=== PATIENT | female | born 1980 | race American Indian/Alaskan Native ===

== ENCOUNTER 2017-06-02 03:57 | Emergency (ER) | payer BC, OTHER ==
[~2017-06-02] VITALS: Ht 165.1 cm; Wt 82.0 kg
[~2017-06-02 03:57] MED LIST: CIPROFLOXACIN500 MG PO; GENTAMICIN SULFA5 ML OD; METRONIDAZOLE500 MG PO; NORCO 5-325 TA1 EACH PO; OMEPRAZOLE20 MG PO; PROMETHAZINE HC25 M1 PO
[2017-06-02] MEDS ORDERED: AMLODIPINE BES2.5 MG PO (05:11)
[2017-06-02] MEDS ORDERED: OXYCODONE-ACET1 EAC1 PO (05:12)
[2017-06-02] MEDS ORDERED: TORSEMIDE20 MG PO (05:36)
[2017-06-02] MEDS ORDERED: ONDANSETRON HCL8 MG (21:50)
[2017-06-02] MEDS ORDERED: XANAX0.5 MG (21:52)
[2017-06-02] MEDS ORDERED: ATIVAN1 MG (21:52)
== END 2017-06-02 08:30 | disposition home or self-care (01) ==
LOC: ED 03:57
DX: T80.0XXA Air embolism following infusion, transfusion and therapeutic injection, initial encounter (principal); F41.0 Panic disorder [episodic paroxysmal anxiety]; I10 Essential (primary) hypertension; Z79.899 Other long term (current) drug therapy
CPT/HCPCS: 71010; 80053; 85025; 96361; 96374; 96375; 99283; J1170; J2060; J2405; J7030

== ENCOUNTER 2017-06-02 21:40 | Emergency (ER) | payer BC, OTHER ==
[~2017-06-02] VITALS: Ht 165.1 cm; Wt 82.2 kg
[~2017-06-02 21:40] MED LIST changes: +AMLODIPINE BES2.5 MG PO; +OXYCODONE-ACET1 EAC1 PO; +TORSEMIDE20 MG PO
[2017-06-02] MEDS ORDERED: ONDANSETRON HCL8 MG (21:50)
[2017-06-02] MEDS ORDERED: XANAX0.5 MG (21:52)
[2017-06-02] MEDS ORDERED: ATIVAN1 MG (21:52)
== END 2017-06-03 00:22 | disposition home or self-care (01) ==
LOC: ED 21:40
DX: F41.0 Panic disorder [episodic paroxysmal anxiety] (principal); Z99.2 Dependence on renal dialysis; I10 Essential (primary) hypertension; Z79.899 Other long term (current) drug therapy
CPT/HCPCS: 96361; 96374; 96375; 99282; J2060; J2405; J7030

== ENCOUNTER 2018-03-11 13:37 | Emergency (ER) | payer OTHER ==
[~2018-03-11] VITALS: Ht 165.1 cm; Wt 82.2 kg
--- OUTSIDE RECORDS SUMMARY | ~2018-03-11 | XMS | Encounter Summary ---
Demographics + + + | Address | [address] | | | [place] [address] | + + + | Home Phone | | + + + | Preferred Language | Unknown | + + + | Marital Status | | + + + | Congregational Affiliation | Unknown | + + + | Race | Unknown | + + + | Ethnic Group | Unknown | + + + Author + + + | Author | [facility] | + + + | Organization | [facility] [employer] [facility] | + + + | Address | Unknown | + + + | Phone | Unavailable | + + + Support + + +---------+ + | Name | Relationship | Address | Phone | + + +---------+ + | Lydia Palm | ECON | Unknown | | + + +---------+ + | Lyubov Smalls | ECON | Unknown | | + + +---------+ + | Jose C Oconnor | ECON | Unknown | | + + +---------+ + Care Team Providers + +------+ + | Care Cutting And Boning Supervisor Name | Role | Phone | + +------+ + | Aura Saldaña | PCP | | + +------+ + Reason for Visit +--------+ + | Reason | Comments | +--------+ + | Other | [facility] order form- signed order by provider- 4/27/18 - | | | | +--------+ + Encounter Details +--------+ + + + + | Date | Type | Department | Care Team | Description | +--------+ + + + + | 03/06/ | Documentati | [facility] | [facility] | [facility] | | 2018 | on Only | [address] | [facility] [address] | depot order form- | | | | [address] | | signed order by | | | | [place] [id number] | | provider- 03/06/18 - | | | | [phone] | | ) | +--------+ + + + + Social [...] + + + as of this encounter Progress Notes Shayy Stewart CMA - 03/06/2018 3:33 PM PDTFaxed signed order by provider to [facility] depot order form. Fax confirmation received. .in this encounter Plan of Treatment Not on fileas of this encounter Visit Diagnoses Not on filein this encounter"
--- OUTSIDE RECORDS SUMMARY | ~2018-03-11 | XMS | Encounter Summary ---
Demographics + + + | Address | [address] | | | [place] [address] | + + + | Home Phone | | + + + | Preferred Language | Unknown | + + + | Marital Status | | + + + | Quaker Affiliation | Unknown | + + + | Race | Unknown | + + + | Ethnic Group | Unknown | + + + Author + + + | Author | [facility] | + + + | Organization | [facility] | + + + | Address [...] Team Providers + +------+ + | Care Dental Aide Name | Role | Phone | + +------+ + | Aura Saldaña | PCP | | + +------+ + Reason for Visit + + + | Reason | Comments | + + + | Abdominal Pain | pt reports she has had similar pain in the past "when my | | | peritoneum is infected" | + + + | Emesis | | + + + Auth/Cert +--------+--------+ + + + + | Status | Reason | Specialty | Diagnoses / | Referred By | Referred To | | | | | Procedures | Contact | Contact | +--------+--------+ + + + + | | | | | | | +--------+--------+ + + + + Encounter Details +--------+ + + + + | Date | Type | Department | Care Team | Description | +--------+ + + + + | 03/04/ | Hospital | [facility] | Irvin Mujica MD | Non-intractable | | 2018 - | Encounter | [facility] | [address] | vomiting with | | | | Surgical [address] | [place], [place] | nausea, unspecified | | 03/09/ | | [address], [place] | [address] | vomiting type | | 2018 | | [address] | [phone] | (Primary Dx); | | | | | | Generalized | | | | | Juan-Anthony, | abdominal pain; | | | | | MD Jose [address] | End-stage renal | | | | | [address] | disease on | | | | | [place] [address] | peritoneal dialysis | | | | | [phone] | ([facility]) | | | | | | | | | | | Kemal Maloney | | | | | | MD Sriram [address] | | | | | | [address] [place], [place] | | | | | | [address] | | | | | | | | | | | | Cesar Gatica MD | | | | | | [address] | | | | | | [address] | | | | | | [place] [address] | | | | | | [phone] | | | | | | | [...] + + + | Blood Pressure | 113/78 | 03/09/2018 11:58 AM PDT | + + + + | Pulse | 80 | 03/09/2018 3:27 PM PDT | + + + + | Temperature | 36.7 C (98.1 F) | 03/09/2018 3:27 PM PDT | + + + + | Respiratory Rate | 18 | 03/09/2018 3:27 PM PDT | + + + + | Oxygen Saturation | 97% | 03/09/2018 3:27 PM PDT | + + + + | Inhaled Oxygen | - | - | | Concentration | | | + + + + | Weight | 83.9 kg (184 lb 15.5 | 03/09/2018 7:20 AM PDT | | | oz) | | + + + + | Height | 157.5 cm (5' 2") | 03/05/2018 1:45 AM PDT | + + + + | Body Mass Index | 33.83 | 03/09/2018 7:20 AM PDT | + + + + in this encounter Discharge Summaries Lukas Lynn MD-R2 - 03/09/2018 6:55 AM PDTFormatting of this note may be different from the original. Service: Hospitalist Discharge Summary Pt: Ramona Oconnor AGE/SEX: 38 y.o. female ROOM: 406/406-1 PCP: [facility] : 1980 Date of Admission: 03/04/2018 Date of Discharge: Discharge Provider: ODALIS ColónR2/Dr. Kemal Maloney Treatment Team: Consulting Physician: Santos Rey MD Consulting Physician: Linden Alonzo MD Admitting Provider: Jose Doran MD Discharge Diagnoses: Principal Problem: Abdominal pain Active Problems: Gastroesophageal reflux disease without esophagitis ESRD on peritoneal dialysis Nausea with vomiting Anemia in ESRD (end-stage renal disease) (HCC) Resolved Problems: * No resolved hospital problems. * BRIEF HISTORY OF PRESENTATION and HOSPITAL COURSE: This is a 2-year-old female with past medical history of end-stage renal disease on periton eal dialysis due to glomerulonephritis and gastroesophageal reflux disease who presents with sudden onset abdominal pain. She came to the hospital where she was diagnosed with likely p eritoneal dialysis associated peritonitis. This was confirmed with a cell count which showed a PMN count of greater than 1000. The patient was started on vancomycin and Fortaz. She imp roved throughout the hospitalization. Her last PMN count was 9. [facility] 10 more days of antibiotics to be administered by her peritoneal dialysis nurse. DISCHARGE EXAM Vital Signs: BP 113/78 (BP Location: Left upper arm) | Pulse 80 | Temp 98.1 F (36.7 C) (Oral) | R enmanuel 18 | Ht 1.575 m (5' 2") | Wt 83.9 kg (184 lb 15.5 oz) | SpO2 97% | ? No | BMI 33.83 kg/m Physical Exam Physical Exam Constitutional: She is oriented to person, place, and time. She appears well-nourished. No distress. HENT: Head: Normocephalic and atraumatic. Right Ear: External ear normal. Left Ear: External ear normal. Eyes: Conjunctivae are normal. No scleral icterus. Neck: No tracheal deviation present. Cardiovascular: Normal rate, regular rhythm, normal heart sounds and intact distal pulses. Pulmonary/Chest: Effort normal and breath sounds normal. No stridor. No respiratory distres s. Abdomina/Gl: Soft. She exhibits no distension. There is no tenderness. Tenderness resolved, Neurological: She is alert and oriented to person, place, and time. Skin: Skin is warm and dry. DATA Recent Results (from the past 24 hour(s)) Renal function panel Collection Time: 03/09/18 4:48 AM Result Value Ref Range SODIUM 139 135 - 145 mmol/L POTASSIUM 2.8 (L) 3.5 - 4.9 mmol/L CHLORIDE 98 (L) 99 - 109 mmol/L CO2 24 23 - 32 mmol/L ANION GAP AGAP 20 5 - 20 mmol/L GLUCOSE 84 65 - 99 mg/dL BUN 28 (H) 8 - 25 mg/dL CREATININE 15.2 (H) 0.50 - 1.00 mg/dL CALCIUM 7.9 (L) 8.5 - 10.5 mg/dL Albumin 2.0 (L) 3.6 - 5.0 g/dL PHOSPHORUS 5.6 (H) 2.3 - 4.8 mg/dL EGFR 3 (L) >60 mL/min/1.73m2 Vancomycin,Random Collection Time: 03/09/18 4:48 AM Result Value Ref Range VANCOMYCIN,RANDOM 23.51 ug/mL Radiology Ct Abdomen Pelvis With Contrast Result Date: 03/05/2018 1. Possible fatty liver. 2. Bilateral renal atrophy again seen. Peritoneal dialysis cathete r in the pelvis. 3. Masslike area in the right adnexa measuring 4.9 x 3.7 cm. This is simila r compared with the prior CT. 4. Trace amount of free fluid. No free air. 5. Colonic diverti cula. No definite diverticulitis. 6. Appendix appears normal. RADIA Electronically signed Chivo Dean MD on Mar 05 2018 3:51AM Referring Provider Line: [phone] ID: [id number] PLAN Patient is to be discharged home. She will be followed up tomorrow with her peritoneal dial ysis nurse to continue her outpatient antibiotic therapy. Disposition: Home Condition: Good Code Status: DNR/DNI No discharge procedures on file. Follow up: [facility] [address] [place] [id number] In 1 week hospital follow up Medication List START taking these medications HYDROcodone-acetaminophen 5-325 MG per tablet QTY: 20 tablet Refills: 0 Commonly known as: NORCO Take 1 tablet by mouth every 6 (six) hours as needed. zolpidem 5 MG tablet QTY: 10 tablet Refills: 0 Commonly known as: AMBIEN Take 1 tablet by mouth nightly as needed for Sleep (may repeat once in 1 hr if initial dose not effective). CONTINUE taking these medications ALPRAZolam 0.5 MG tablet Refills: 0 Commonly known as: XANAX amLODIPine 2.5 MG tablet Refills: 0 Commonly known as: NORVASC ergocalciferol 52527 units capsule Refills: 0 Commonly known as: [...] K-DUR,KLOR-CON Take 1 tablet by mouth daily. promethazine 25 MG tablet QTY: 30 tablet Refills: 3 Commonly known as: PHENERGAN Take 1 tablet by mouth every 6 (six) hours as needed for Nausea. sevelamer 800 MG tablet QTY: 180 tablet Refills: 1 Commonly known as: RENVELA Take 2 tablets by mouth 3 (three) times daily with meals. You might also be taking other medications not listed above. If you have questions about an y of your other medications, talk to the person who prescribed them or your Primary Care Pro vider. Where to Get Your Medications You can get these medications from any pharmacy Bring a paper prescription for each of these medications HYDROcodone-acetaminophen 5-325 MG per tablet potassium chloride SA 20 MEQ tablet promethazine 25 MG tablet zolpidem 5 MG tablet Discharge took 60 minutes, to include final examination, discussion of admission, and prepa ration of prescriptions, instructions for on-going care, follow-up and documentation of disc harge summary. Lukas Lynn MD-R2 03/09/2018 4:14 PM Associated attestation - Kemal Maloney MD - 03/10/2018 5:53 PM PDTPatient seen an d examined along with residents prior to discharge. She is 38 year old lady (not 2 year old as mentioned in the note of my resident) who is on peritoneal dialysis at home presented wit h PD induced peritonitis and was treated with IV vancomycin and IV ceftazidime. Patient resp onded well to antibiotics and is being discharged home in stable condition with 10 more days of vancomycin and ceftazidime per nephrology recommendations. in this encounter Discharge Instructions uLkas Lynn MD-R2 - 03/09/2018You are going home! I'm glad you are feeling better. You will be receiving a call from Camille at the dialysis ce nt in regards to your continuing antibiotic therapy. You will need to receive antibiotics via your PD catheter for another ten days. Camille will be arranging this. I have also provided some more phenergan for you as well as some pain medicine. Please take 20 mEq/day of potassium. in this encounter Medications at Time of Discharge + + +--------+---------+ + + | Medication | Sig. | Disp. | Refills | Start | End Date | | | | | | Date | | + + +--------+---------+ + + | amLODIPine | Take 2.5 mg by mouth | | | | | | (NORVASC) 2.5 MG | daily. | | | | | | tablet | | | | | | + + +--------+---------+ + + | ergocalciferol | Take 50,000 Units by | | | | | | (DRISDOL) 47971 | mouth once a week. | | | | | | UNITS capsule | | | | | | + + +--------+---------+ + + | gentamicin | Apply topically 3 | 15 g | 1 | 03/18/20 | | | (GARAMYCIN) 0.1 % | (three) times daily. | | | 17 | | | ointment | | | | | | + + +--------+---------+ + + | ondansetron | Take 1 tablet by | 30 | 11 | //20 | | | (ZOFRAN) 8 MG tablet | mouth every 8 | tablet | | 17 | | | | (eight) hours as | | | | | | | needed for Nausea. | | | | | + + +--------+---------+ + + | ALPRAZolam (XANAX) | Take 0.5 mg by mouth | | | | | | 0.5 MG tablet | nightly as needed | | | | | | | for Sleep. | | | | | + + +--------+---------+ + + | | Take 1 tablet by | 20 | 0 | 03/09/20 | | | HYDROcodone-acetamin | mouth every 6 (six) | tablet | | 18 | | | ophen (NORCO) 5-325 | hours as needed. | | | | | | MG per tablet | | | | | | + + +--------+---------+ + + | LORazepam (ATIVAN) | Take 1 mg by mouth | | | | | | 1 MG tablet | every 8 (eight) | | | | | | | hours as needed for | | | | | | | Anxiety. | | | | | + + +--------+---------+ + + | potassium chloride | Take 1 tablet by | 30 | 3 | 03/09/20 | | | SA (HOLLY RIGGS) | mouth daily. | tablet | | 18 | 9 | | 20 MEQ tablet | | | | | | + + +--------+---------+ + + | promethazine | Take 1 tablet by | 30 | 3 | 03/09/20 | | | (PHENERGAN) 25 MG | mouth every 6 (six) | tablet | | 18 | | | tablet | hours as needed for | | | | | | | Nausea. | | | | | + + +--------+---------+ + + | zolpidem (AMBIEN) | Take [...] | | | | | + + +--------+---------+ + + as of this encounter Progress Notes Lukas Lynn MD-R2 - 03/08/2018 6:39 AM PDTFormatting of this note may be different from the original. PROGRESS NOTE Pt: Ramona Oconnor AGE/SEX: 38 y.o. 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 She was admitted for suspected PD associated peritonitis. SUBJECTIVE NSONE, patient has nausea, but otherwise doing well. Her abdominal pain resolved, she does not have any chest pain. OBJECTIVE Temp: [97.3 F (36.3 C)-98.5 F (36.9 C)] 98 F (36.7 C) (03/08 114) BP: (103-150)/(68-78) 136/78 (03/08 114) Heart Rate: [73-94] 78 (03/08 114) Resp: [16-18] 16 (03/08 114) SpO2: [94 %-99 %] 95 % (03/08 1144) Weight: [83.7 kg (184 lb 8.4 oz)-84 kg (185 lb 3 oz)] 83.7 kg (184 lb 8.4 oz) (03/08 0915) Physical Exam Constitutional: She is oriented to person, place, and time. She appears well-nourished. Patient was asleep and appeared to be very comfortable. HENT: Head: Normocephalic and atraumatic. Right Ear: External ear normal. Left Ear: External ear normal. Eyes: Her eyes were opened after she woke up no noted discharge or scleral icterus Neck: No tracheal deviation present. Cardiovascular: Normal rate, regular rhythm and normal heart sounds. Pulmonary/Chest: Effort normal and breath sounds normal. No stridor. Abdomina/Gl: Soft. She exhibits no distension. No longer tender to palpation exam. Neurological: She is alert and oriented to person, place, and time. Skin: Skin is warm and dry. Recent Results (from the past 24 hour(s)) Renal function panel Collection Time: 03/08/18 5:15 AM Result Value Ref Range SODIUM 137 135 - 145 mmol/L POTASSIUM 2.9 (L) 3.5 - 4.9 mmol/L CHLORIDE 97 (L) 99 - 109 mmol/L CO2 26 23 - 32 mmol/L ANION GAP AGAP 17 5 - 20 mmol/L GLUCOSE 99 65 - 99 mg/dL BUN 28 (H) 8 - 25 mg/dL CREATININE 15.3 (H) 0.50 - 1.00 mg/dL CALCIUM 8.1 (L) 8.5 - 10.5 mg/dL Albumin 1.9 (L) 3.6 - 5.0 g/dL PHOSPHORUS 6.2 (H) 2.3 - 4.8 mg/dL EGFR 3 (L) >60 mL/min/1.73m2 MEDICATIONS amLODIPine 2.5 mg Oral Daily cefTAZidime 1 g Intravenous Daily [START ON 03/09/2018] ergocalciferol 50,000 Units Oral Weekly famotidine 20 mg Oral Daily Or famotidine 20 mg Intravenous Daily gentamicin Topical Daily heparin (porcine) 5000 unit/0.5mL 5,000 Units Subcutaneous 2 times per day sevelamer 1,600 mg Oral TID WC sodium chloride 10 mL Intravenous Q8H PRN: acetaminophen OR acetaminophen, ALPRAZolam, HYDROcodone-acetaminophen, [DISCONTINUED] H YDROmorphone OR HYDROmorphone, ondansetron OR ondansetron, polyethylene glycol, prom ethazine, zolpidem ASSESSMENT & PLAN PD associated Peritonitis: Patient likely has peritonitis associated with her PD. CT scan d id not show any evidence of diverticulitis. She has a significantly improved. BCx show coag negative staph in 1/2 culture sets, likely contaminant. Her PMN cell count is 9. - Continue Ceftazidime per nephrology - Perform PD per nephrology recommendations - AM CMP, Mg, Phos - Zofran for N/V - Pain control with PO medications primarily, dilaudid only for severe pain. 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 Nephrology has been consulted and will be managing h er PD. GERD: Continue pepcid DVT: heparin Problem list: Principal Problem: Abdominal pain Active Problems: Gastroesophageal reflux disease without esophagitis ESRD on peritoneal dialysis Nausea with vomiting Anemia in ESRD (end-stage renal disease) ([facility]) Active comorbid conditions include: - renal disease, CKD (ESRD) - obesity due to excess calories - GERD without esophagitis Length of stay: 3 days Code status: DNR/DNI Disposition: Inpatient Lukas Lynn MD-R2 03/08/2018 1:09 PM Associated attestation - Kemal Maloney MD - 03/08/2018 5:15 PM PDTPatient seen an d examined along with my resident. All labs reviewed. Discussed with Dr. Mejia. Patient is on IV ceftazidime for bacterial peritonitis and off vancomycin. Likely discharge home tomorr ow. Duration of antibiotic per nephrology sevices. I agree with the progress note of Dr. Lynn. Cesar Gatica MD - 03/07/2018 9:32 AM P DTFormatting of this note may be different from the original. [facility] Service: Hospitalist Progress Note Hospital Day: LOS: 2 days SUBJECTIVE Patient Summary: Events Overnight: Patient is feeling better Nausea is better NO vomiting No CP or SOA Scheduled Medications amLODIPine 2.5 mg Oral Daily cefTAZidime 1 g Intravenous Daily [START ON 03/09/2018] ergocalciferol 50,000 Units Oral Weekly famotidine 20 mg Oral Daily Or famotidine 20 mg Intravenous Daily gentamicin Topical Daily heparin (porcine) 5000 unit/0.5mL 5,000 Units Subcutaneous 2 times per day sevelamer 1,600 mg Oral TID WC sodium chloride 10 mL Intravenous Q8H Continuous Infusions OBJECTIVE Vital Signs: BP 110/69 (BP Location: Left upper arm) | Pulse 76 | Temp 97.8 F (36.6 C) (Oral) | R enmanuel 18 | Ht 1.575 m (5' 2") | Wt 84.6 kg (186 lb 8.2 oz) | SpO2 98% | ? No | BMI 34.11 kg/m Physical Exam General Appearance: awake, alert, oriented, in no acute distress Eyes: No gross abnormalities. Neck: neck- supple, no mass, non-tender Lungs: Normal expansion. Clear to auscultation. No rales, rhonchi, or wheezing. Abdomen: Soft, non-tender, normal bowel sounds. No bruits, organomegaly or masses. Extremities: Extremities warm to touch, pink, with no edema. DATA Recent Labs Lab 03/07/1845203/06/1852403/05/1833103/04/18 215 WBC 10.91 9.41 12.57* 14.92* HGB 12.4 12.0 11.0* 12.7 HCT 37.1 36.3 32.6* 39.4 PLT 350 336 364 414* NEUTOPHILPCT 69.66 68.87 -- 88.36 MONOPCT 6.20 6.49 -- 2.59 Recent Labs Lab 03/07/1845203/06/1852403/05/1833103/04/18 2155 NA 136 138 138 139 K 3.1* 3.5 3.5 3.8 CL 94* 96* 95* 97* CO2 27 29 29 30 BUN 31* 34* 34* 33* CREATININE 15.2* 15.0* 15.3* 15* PROT -- -- 6.5 | 6.4 7.5 BILITOT -- -- 0.4 | 0.4 0.4 ALT -- -- 10 | 10 14 AST -- -- 12 | 13 13 Phosphorus: Lab Results Component Value Date PHOS 6.0 (H) 03/07/2018 Invalid input(s): LABALBU Recent Labs Lab 03/07/1845203/06/1852403/05/18331 MG 3.0* 3.2* 3.5* No results for input(s): AMYLASE in the last 168 hours. No results for input(s): PHART, PO2ART, CLK4XOP, M9BXSKYQ, BEART in the last 168 hours. No results for input(s): APTT, INR, PTT in the last 168 hours. No results for input(s): TSH, T3FREE, FREET4 in the last 168 hours. No results for input(s): CKTOTAL, TROPONINI, TROPONINT, CKMBINDEX in the last [address] Abdomen Pelvis With Contrast Result Date: 03/05/2018 1. Possible fatty liver. 2. Bilateral renal atrophy again seen. Peritoneal dialysis cathete r in the pelvis. 3. Masslike area in the right adnexa measuring 4.9 x 3.7 cm. This is simila r compared with the prior CT. 4. Trace amount of free fluid. No free air. 5. Colonic diverti cula. No definite diverticulitis. 6. Appendix appears normal. RADIA Electronically signed b abad Dean MD on Mar 05 2018 3:51AM Referring Provider Line: [phone] ID: [id number] PROBLEM LIST Principal Problem: Abdominal pain Active Problems: Gastroesophageal reflux disease without esophagitis ESRD on peritoneal dialysis Nausea with vomiting Anemia in ESRD (end-stage renal disease) (HCC) Resolved Problems: * No resolved hospital problems. * ASSESSMENT & PLAN Acute peritonitis related to peritoneal dialysis. Blood cultures growing gram-positive cocc i, final identification pending. Continue IV antibiotics. Appreciate Nephrology's input. End-stage renal disease, on peritoneal dialysis. Continue current therapy. Intractable naus ea and vomiting much better after started Phenergan. Continue to monitor electrolyte abnorma lities. Defer to Nephrology for further management. Code Status: DNR/DNI Cesar Gatica MD 03/07/2018 9:32 Lukas Mahoney MD-R2 - 03/06/2018 6:46 AM PDTFormatting of this note may be dif ferent from the original. PROGRESS NOTE Pt: Ramona Oconnor AGE/SEX: 38 y.o. female ROOM: 406/406-1 PCP: [facility] : 1980 PATIENT SUMMARY This is a 38 y/o female on PD 2/2 GN with a history of GERD who presented with a one day hi story of abdominal pain with associated leukocytosis and N/V. She was admitted for suspected PD associated peritonitis. SUBJECTIVE Patient was in bed this morning, awake, not in acute distress, she says she is feeling bett er and her abdominal pain has improved, now 1 or 2. She is afebrile. She wishes to have some thing to eat OBJECTIVE Temp: [97.5 F (36.4 C)-99 F (37.2 C)] 99 F (37.2 C) (03/06 1516) BP: (96-127)/(51-71) 108/70 (03/06 1516) Heart Rate: [55-76] 67 (03/06 1516) Resp: [16-18] 18 (03/06 1516) SpO2: [96 %-98 %] 98 % (03/06 1516) Weight: [84.6 kg (186 lb 8.2 oz)-85.9 kg (189 lb 6 oz)] 84.6 kg (186 lb 8.2 oz) (03/06 080 0) Physical Exam Constitutional: She is oriented to person, place, and time. She appears well-nourished. Patient is in bed and appears much more comfortable exam HENT: Head: Normocephalic and atraumatic. Right Ear: External ear normal. Left Ear: External ear normal. Eyes: Eyes were closed Neck: No tracheal deviation present. Cardiovascular: Normal rate, regular rhythm and normal heart sounds. Pulmonary/Chest: Effort normal and breath sounds normal. No stridor. Abdomina/Gl: Soft. She exhibits no distension. Minimally tender to palpation exam Neurological: She is alert and oriented to person, place, and time. Skin: Skin is warm and dry. Recent Results (from the past 24 hour(s)) Renal function panel Collection Time: 03/06/18 5:25 AM Result Value Ref Range SODIUM 138 135 - 145 mmol/L POTASSIUM 3.5 3.5 - 4.9 mmol/L CHLORIDE 96 (L) 99 - 109 mmol/L CO2 29 23 - 32 mmol/L ANION GAP AGAP 17 5 - 20 mmol/L GLUCOSE 75 65 - 99 mg/dL BUN 34 (H) 8 - 25 mg/dL CREATININE 15.0 (H) 0.50 - 1.00 mg/dL CALCIUM 7.7 (L) 8.5 - 10.5 mg/dL Albumin 2.2 (L) 3.6 - 5.0 g/dL PHOSPHORUS 5.5 (H) 2.3 - 4.8 mg/dL EGFR 3 (L) >60 mL/min/1.73m2 CBC W/Auto Diff (Reflex to Manual) Collection Time: 03/06/18 5:25 AM Result Value Ref Range WBC 9.41 3.80 - 11.00 K/uL RBC 4.05 3.70 - 5.10 M/uL HGB 12.0 11.3 - 15.5 g/dL HCT 36.3 34.0 - 46.0 % MCV 89.6 80.0 - 100.0 fl MCH 29.7 27.0 - 34.0 pg MCHC 33.1 32.0 - 35.5 g/dL RDW SD 48.1 37 - 53 fl PLT 336 150 - 400 K/uL MPV 8.0 fl DIFF TYPE AUTOMATED NEUTROPHILS 68.87 % LYMPHOCYTES 21.54 % MONOCYTES 6.49 % EOSINOPHILS 2.28 % BASOPHILS 0.82 % NEUTROPHILS ABS 6.48 1.90 - 7.40 K/uL LYMPHOCYTES ABS 2.03 1.00 - 3.90 K/uL MONOCYTES ABS 0.61 0.00 - 0.80 K/uL EOSINOPHILS ABS 0.21 0.00 - 0.50 K/uL BASOPHILS ABS 0.08 0.00 - 0.10 K/uL Magnesium Collection Time: 03/06/18 5:25 AM Result Value Ref Range MAGNESIUM 3.2 (H) 1.7 - 2.4 mg/dL Electrocardiogram, 12-lead Collection Time: 03/06/18 8:38 AM Result Value Ref Range Ventricular Rate 65 BPM Atrial Rate 65 BPM P-R Interval 154 ms QRS Duration 84 ms Q-T Interval 488 ms QTC Calculation (Bezet) 507 ms Calculated P [place] 48 degrees Calculated R [place] 71 degrees Calculated T [place] 130 degrees Diagnosis Normal sinus rhythm T wave abnormality, consider lateral ischemia Prolonged QT Abnormal ECG No previous ECGs available Confirmed by RYAN LUGO ([id number]) on 03/06/2018 11:27:37 AM MEDICATIONS amLODIPine 2.5 mg Oral Daily cefTAZidime 1 g Intravenous Daily [START ON 03/09/2018] ergocalciferol 50,000 Units Oral Weekly famotidine 20 mg Oral Daily Or famotidine 20 mg Intravenous Daily gentamicin Topical Daily heparin (porcine) 5000 unit/0.5mL 5,000 Units Subcutaneous 2 times per day sevelamer 1,600 mg Oral TID WC sodium chloride 10 mL Intravenous Q8H PRN: acetaminophen OR acetaminophen, ALPRAZolam, HYDROcodone-acetaminophen, HYDROmorphone OR HYDROmorphone, ondansetron OR ondansetron, polyethylene glycol, promethazine, zolpi dem ASSESSMENT & PLAN PD associated Peritonitis: Patient likely has peritonitis associated with her PD. CT scan d id not show any evidence of diverticulitis. Her PMN count was 1,685 suggestive of peritoniti s. She has been started on vancomycin and ceftazidime per nephrology. She did brief moment o f anxiety and nausea, was given Reglan and Ativan. 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 Nephrology has been consulted and will be managing h er PD. GERD: Continue pepcid DVT: heparin Problem list: Principal Problem: Abdominal pain Active Problems: Gastroesophageal reflux disease without esophagitis ESRD on peritoneal dialysis Nausea with vomiting Anemia in ESRD (end-stage renal disease) (HCC) Active comorbid conditions include: - renal disease, CKD (ESRD) - obesity due to excess calories - GERD without esophagitis Length of stay: 1 days Code status: DNR/DNI Disposition: Inpatient Lukas Lynn MD-R2 03/06/2018 3:25 PM Associated attestation - Cesar Gatica MD - 03/06/2018 9:23 PM PDTI have seen and examin ed the patient and agree with residents note.Lukas Lynn MD-R2 - 03/05/2018 6:59 AM PDTFormatting of this note may be different from the original. PROGRESS NOTE Pt: Ramona Oconnor AGE/SEX: 38 y.o. 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 She was admitted for suspected PD associated peritonitis. SUBJECTIVE Patient seen in bed with her mom, she appeared uncomfortable and stated she was nauseated a nd had abdominal pain. She denied any fevers or chills. OBJECTIVE Temp: [97.3 F (36.3 C)-98.3 F (36.8 C)] 97.6 F (36.4 C) (03/05 1518) BP: (93-137)/(52-81) 108/65 (03/05 1518) Heart Rate: [59-92] 73 (03/05 1518) Resp: [15-22] 15 (03/05 1518) SpO2: [93 %-100 %] 100 % (03/05 1518) Height: [157.5 cm (5' 2")] 157.5 cm (5' 2") (03/05 145) Weight: [79.9 kg (176 lb 2.4 oz)] 79.9 kg (176 lb 2.4 oz) (03/05 145) BMI (Calculated): [32.3] 32.3 (03/05 145) Physical Exam Constitutional: She is oriented to person, place, and time. She appears well-nourished. Patient is lying in bed with her mom, appears uncomfortable HENT: Head: Normocephalic and atraumatic. Right Ear: External ear normal. Left Ear: External ear normal. Eyes: Conjunctivae are normal. No scleral icterus. Neck: No tracheal deviation present. Cardiovascular: Normal rate, regular rhythm and normal heart sounds. Pulmonary/Chest: Effort normal and breath sounds normal. No stridor. Abdomina/Gl: Soft. She exhibits no distension. Patient has TTP around her epigastrium, Her PD catheter is in place and the dressing is cl caio, no TTP around the PD catheter Neurological: She is alert and oriented to person, place, and time. Skin: Skin is warm and dry. Recent Results (from the past 24 hour(s)) CBC with differential Collection Time: 03/04/18 9:55 PM Result Value Ref Range WBC 14.92 (H) 3.80 - 11.00 K/uL RBC 4.51 3.70 - 5.10 M/uL HGB 12.7 11.3 - 15.5 g/dL HCT 39.4 34.0 - 46.0 % MCV 87.4 80.0 - 100.0 fl MCH 28.2 27.0 - 34.0 pg MCHC 32.2 32.0 - 35.5 g/dL RDW SD 47.7 37 - 53 fl PLT 414 (H) 150 - 400 K/uL MPV 7.9 fl DIFF TYPE AUTOMATED NEUTROPHILS 88.36 % LYMPHOCYTES 8.25 % MONOCYTES 2.59 % EOSINOPHILS 0.09 % BASOPHILS 0.71 % NEUTROPHILS ABS 13.18 (H) 1.90 - 7.40 K/uL LYMPHOCYTES ABS 1.23 1.00 - 3.90 K/uL MONOCYTES ABS 0.39 0.00 - 0.80 K/uL EOSINOPHILS ABS 0.01 0.00 - 0.50 K/uL BASOPHILS ABS 0.11 (H) 0.00 - 0.10 K/uL MORPHOLOGY RBC AND PLT MORPHOLOGY APPEAR NORMAL Platelet Estimate ADEQUATE Diff Comment SLIDE SCANNED, AGREES WITH AUTOMATED RESULTS. Comprehensive metabolic panel Collection Time: 03/04/18 9:55 PM Result Value Ref Range SODIUM 139 135 - 145 mmol/L POTASSIUM 3.8 3.5 - 4.9 mmol/L CHLORIDE 97 (L) 99 - 109 mmol/L CO2 30 23 - 32 mmol/L ANION GAP AGAP 16 5 - 20 mmol/L GLUCOSE 96 65 - 99 mg/dL BUN 33 (H) 8 - 25 mg/dL CREATININE 15 (H) 0.50 - 1.00 mg/dL BUN/CREAT 2 CALCIUM 9.0 8.5 - 10.5 mg/dL TOTAL PROTEIN 7.5 6.3 - 8.2 g/dL Albumin 2.6 (L) 3.6 - 5.0 g/dL GLOBULIN 5.0 (H) 1.3 - 4.9 g/dL A/G 0.5 (L) 1.0 - 2.4 TBIL 0.4 0.1 - 1.5 mg/dL ALK PHOS 106 35 - 115 U/L AST 13 10 - 45 U/L ALT 14 10 - 65 U/L EGFR 3 (L) >60 mL/min/1.73m2 Lactic acid Collection Time: 03/04/18 9:55 PM Result Value Ref Range LACTIC ACID 1.7 0.4 - 2.0 mmol/L C&S Collection Time: 03/05/18 1:00 AM Result Value Ref Range Specimen Description PERITONEAL FLUID GRAM STAIN NO CELLS OR ORGANISMS SEEN CULTURE PENDING Body fluid cell count Collection Time: 03/05/18 1:00 AM Result Value Ref Range FLUID TYPE PERITONEAL FLUID COLOR YELLOW APPEARANCE HAZY RBC'S <10,000 /mm3 TOTAL NUCLEATED CELLS 1,685 /mm3 NEUTROPHILS 56 % LYMPHOCYTES 31 % MONOCYTES/MACROPHAGES 13 % CELLS COUNTED 100 CBC W/Auto Diff (Reflex to Manual) Collection Time: 03/05/18 3:32 AM Result Value Ref Range WBC 12.57 (H) 3.80 - 11.00 K/uL RBC 3.70 3.70 - 5.10 M/uL HGB 11.0 (L) 11.3 - 15.5 g/dL HCT 32.6 (L) 34.0 - 46.0 % MCV 88.0 80.0 - 100.0 fl MCH 29.7 27.0 - 34.0 pg MCHC 33.7 32.0 - 35.5 g/dL RDW SD 47.3 37 - 53 fl PLT 364 150 - 400 K/uL MPV 8.0 fl DIFF TYPE MANUAL Neutrophils Manual 81 % Lymphocytes Manual 16 % Monocytes Manual 3 % Neutrophils Absolute 10.18 (H) 1.90 - 7.40 K/uL Lymphocytes Absolute 2.01 1.00 - 3.90 K/uL Monocytes Absolute 0.38 0.00 - 0.80 K/uL MORPHOLOGY RBC AND PLT MORPHOLOGY APPEAR NORMAL Magnesium Collection Time: 03/05/18 3:32 AM Result Value Ref Range MAGNESIUM 3.5 (H) 1.7 - 2.4 mg/dL Comprehensive Metabolic Panel Collection Time: 03/05/18 3:32 AM Result Value Ref Range SODIUM 138 135 - 145 mmol/L POTASSIUM 3.5 3.5 - 4.9 mmol/L CHLORIDE 95 (L) 99 - 109 mmol/L CO2 29 23 - 32 mmol/L ANION GAP AGAP 18 5 - 20 mmol/L GLUCOSE 131 (H) 65 - 99 mg/dL BUN 34 (H) 8 - 25 mg/dL CREATININE 15.3 (H) 0.50 - 1.00 mg/dL BUN/CREAT 2 CALCIUM 7.9 (L) 8.5 - 10.5 mg/dL TOTAL PROTEIN 6.5 6.3 - 8.2 g/dL Albumin 2.3 (L) 3.6 - 5.0 g/dL GLOBULIN 4.2 1.3 - 4.9 g/dL A/G 0.5 (L) 1.0 - 2.4 TBIL 0.4 0.1 - 1.5 mg/dL ALK PHOS 94 35 - 115 U/L AST 12 10 - 45 U/L ALT 10 10 - 65 U/L EGFR 3 (L) >60 mL/min/1.73m2 Liver Function Tests Collection Time: 03/05/18 3:32 AM Result Value Ref Range TOTAL PROTEIN 6.4 6.3 - 8.2 g/dL Albumin 2.2 (L) 3.6 - 5.0 g/dL TBIL 0.4 0.1 - 1.5 mg/dL BILI, DIRECT 0.1 0.0 - 0.3 mg/dL ALK PHOS 92 35 - 115 U/L AST 13 10 - 45 U/L ALT 10 10 - 65 U/L Phosphorus Collection Time: 03/05/18 3:32 AM Result Value Ref Range PHOSPHORUS 5.8 (H) 2.3 - 4.8 mg/dL MRSA by PCR Collection Time: 03/05/18 3:33 AM Result Value Ref Range SOURCE NARES(NOSE) MRSA PCR NEGATIVE NEGATIVE MEDICATIONS [START ON 03/06/2018] amLODIPine 2.5 mg Oral Daily cefTAZidime 2 g Intravenous Daily [START ON 03/09/2018] ergocalciferol 50,000 Units Oral Weekly famotidine 20 mg Oral Daily Or famotidine 20 mg Intravenous Daily heparin (porcine) 5000 unit/0.5mL 5,000 Units Subcutaneous 2 times per day sevelamer 1,600 mg Oral TID WC sodium chloride 10 mL Intravenous Q8H PRN: acetaminophen OR acetaminophen, ALPRAZolam, HYDROcodone-acetaminophen, HYDROmorphone OR HYDROmorphone, ondansetron OR ondansetron, polyethylene glycol, promethazine, zolpi dem ASSESSMENT & PLAN PD associated Peritonitis: Patient likely has peritonitis associated with her PD. CT scan d id not show any evidence of diverticulitis. Her PMN count was 1,685 suggestive of peritoniti s. Nephrology has been consulted. 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 Nephrology has been consulted and will be managing h er PD. GERD: Continue pepcid DVT: heparin Problem list: Principal Problem: Abdominal pain Active Problems: Gastroesophageal reflux disease without esophagitis ESRD on peritoneal dialysis Nausea with vomiting Active comorbid conditions include: - renal disease, CKD (ESRD) - obesity due to excess calories - GERD without esophagitis Length of stay: 0 days Code status: DNR/DNI Disposition: Inpatient Lukas Lynn MD-R2 03/05/2018 5:39 PM Associated attestation - Kemal Maloney MD - 03/05/2018 6:15 PM PDTPatient sen and examined along with residents. All labs were personally reviewed by me. Peritoneal fluid ce ll count is consistent with peritonitis. Culture is pending. Patient is on IV vancomycin and ceftazidime. Will continue peritoneal dialysis. Discussed with Dr. Rey who will manage di alysis needs and antibiotics. I agree with the progress note of Dr. Lynn. in this encounter Plan of Treatment + +--------+ + + | Name | Priori | Associated Diagnoses | Date/Time | | | ty | | | + +--------+ + + | Blood Culture Set 1 | STAT | | 03/07/2018 9:12 AM | | | | | PDT | + +--------+ + + | Blood Culture Set 2 | STAT | | 03/07/2018 9:52 AM | | | | | PDT | + +--------+ + + as of this encounter Procedures + +--------+ + + + | Procedure Name | Priori | Date/Time | Associated Diagnosis | Comments | | | ty | | | | + +--------+ + + + | PERITONEAL DIALYSIS | Today | 03/05/2018 | | Results for this | | | | 6:52 PM | | procedure are in the | | | | PDT | | results section. | + +--------+ + + + in this encounter Results Vancomycin,Random (03/09/2018 4:48 AM) + + + + | Component | Value | Ref Range | + + + + | VANCOMYCIN,RANDOM | 23.51Comment: Testing performed at [facility];888 | ug/mL | | | Maksim Agarwal;[place] [address] | | + + + + + + + | Specimen | Performing Laboratory | + + + | | [facility] [address] [place] [address] | + + + Renal function panel (03/09/2018 4:48 AM) + + + + | Component | Value | Ref Range | + + + + | SODIUM | 139 | 135 - 145 mmol/L | + + + + | POTASSIUM | 2.8 (L) | 3.5 - 4.9 mmol/L | + + + + | CHLORIDE | 98 (L) | 99 - 109 mmol/L | + + + + | CO2 | 24 | 23 - 32 mmol/L | + + + + | ANION GAP AGAP | 20 | 5 - 20 mmol/L | + + + + | GLUCOSE | 84 | 65 - 99 mg/dL | + + + + | BUN | 28 (H) | 8 - 25 mg/dL | + + + + | CREATININE | 15.2 (H) | 0.50 - 1.00 mg/dL | + + + + | CALCIUM | 7.9 (L) | 8.5 - 10.5 mg/dL | + + + + | Albumin | 2.0 (L) | 3.6 - 5.0 g/dL | + + + + | PHOSPHORUS | 5.6 (H) | 2.3 - 4.8 mg/dL | + + + + | EGFR | 3 (L)Comment: GFR <60: CHRONIC KIDNEY | >60 mL/min/1.73m2 | | | DISEASE, IF FOUND OVER A 3 MONTH PERIOD.GFR | | | | <15: KIDNEY FAILURE.FOR AMERICANS, | | | | MULTIPLY THE CALCULATED GFR BY | | | | 1.210.Testing performed at [facility], [address] | | | | [place] [address] | | | | | | + + + + + + + | Specimen | Performing Laboratory | + + + | Blood | [facility] [address] [place] [address] [address] [place], | | | [place] [address] | + + + Renal function panel (03/08/2018 5:15 AM) + + + + | Component | Value | Ref Range | + + + + | SODIUM | 137 | 135 - 145 mmol/L | + + + + | POTASSIUM | 2.9 (L) | 3.5 - 4.9 mmol/L | + + + + | CHLORIDE | 97 (L) | 99 - 109 mmol/L | + + + + | CO2 | 26 | 23 - 32 mmol/L | + + + + | ANION GAP AGAP | 17 | 5 - 20 mmol/L | + + + + | GLUCOSE | 99 | 65 - 99 mg/dL | + + + + | BUN | 28 (H) | 8 - 25 mg/dL | + + + + | CREATININE | 15.3 (H) | 0.50 - 1.00 mg/dL | + + + + | CALCIUM | 8.1 (L) | 8.5 - 10.5 mg/dL | + + + + | Albumin | 1.9 (L) | 3.6 - 5.0 g/dL | + + + + | PHOSPHORUS | 6.2 (H) | 2.3 - 4.8 mg/dL | + + + + | EGFR | 3 (L)Comment: GFR <60: CHRONIC KIDNEY | >60 mL/min/1.73m2 | | | DISEASE, IF FOUND OVER A 3 MONTH PERIOD.GFR | | | | <15: KIDNEY FAILURE.FOR AMERICANS, | | | | MULTIPLY THE CALCULATED GFR BY | | | | 1.210.Testing performed at [facility], [facility] | | | | [facility] [place] [address] | | | | | | + + + + + + + | Specimen | Performing Laboratory | + + + | Blood | [facility] [address] [place], [place] [address], | | | [place] [address] | + + + Body fluid cell count (03/07/2018 10:55 AM) + + + + | Component | Value | Ref Range | + + + + | FLUID TYPE | PERITONEAL FLUID | | + + + + | COLOR | COLORLESS | | + + + + | APPEARANCE | CLEAR | | + + + + | RBC'S | <86359 | /mm3 | + + + + | TOTAL NUCLEATED | 9 | /mm3 | | CELLS | | | + + + + | NEUTROPHILS | 53 | % | + + + + | LYMPHOCYTES | 10 | % | + + + + | MONOCYTES/MACROPHAGE | 37 | % | | S | | | + + + + | CELLS COUNTED | 100Comment: Testing performed at [facility];888 | | | | Maksim Agarwal;[place] [address] | | + + + + + + + | Specimen | Performing Laboratory | + + + | Other - Peritoneal | [address] [address] | | Fluid | | + + + FLUID CULT W/GRAM STAIN (03/07/2018 10:55 AM) + + + + | Component | Value | Ref Range | + + + + | Specimen Description | PERITONEAL FLUID | | + + + + | GRAM STAIN | WBC'S SEEN | | + + + + | GRAM STAIN | NO ORGANISMS SEEN | | + + + + | GRAM STAIN | STAIN PERFORMED ON CYTOSPIN | | + + + + | CULTURE | NO GROWTH 4 DAYS | | + + + + + + + | Specimen | Performing Laboratory | + + + | Body Fluid - Ascites | [facility] [address] [facility] [place], | | Fluid | [place] [address] | + + + Magnesium (03/07/2018 4:53 AM) + + + + | Component | Value | Ref Range | + + + + | MAGNESIUM | 3.0 (H)Comment: Testing performed at [facility], | 1.7 - 2.4 mg/dL | | | [address] [facility] [place] | | | | [address] | | + + + + + + + | Specimen | Performing Laboratory | + + + | | [employer] [facility] [address] [place] [address] [address] [place], | | | [place] [address] | + + + CBC W/Auto Diff (Reflex to Manual) (03/07/2018 4:53 AM) + + + + | Component | Value | Ref Range | + + + + | WBC | 10.91 | 3.80 - 11.00 K/uL | + + + + | RBC | 4.24 | 3.70 - 5.10 M/uL | + + + + | HGB | 12.4 | 11.3 - 15.5 g/dL | + + + + | HCT | 37.1 | 34.0 - 46.0 % | + + + + | MCV | 87.5 | 80.0 - 100.0 fl | + + + + | MCH | 29.2 | 27.0 - 34.0 pg | + + + + | MCHC | 33.3 | 32.0 - 35.5 g/dL | + + + + | RDW SD | 46.4 | 37 - 53 fl | + + + + | PLT | 350 | 150 - 400 K/uL | + + + + | MPV | 8.2 | fl | + + + + | DIFF TYPE | AUTOMATED | | + + + + | NEUTROPHILS | 69.66 | % | + + + + | LYMPHOCYTES | 21.25 | % | + + + + | MONOCYTES | 6.20 | % | + + + + | EOSINOPHILS | 1.90 | % | + + + + | BASOPHILS | 0.99 | % | + + + + | NEUTROPHILS ABS | 7.60 (H) | 1.90 - 7.40 K/uL | + + + + | LYMPHOCYTES ABS | 2.32 | 1.00 - 3.90 K/uL | + + + + | MONOCYTES ABS | 0.68 | 0.00 - 0.80 K/uL | + + + + | EOSINOPHILS ABS | 0.21 | 0.00 - 0.50 K/uL | + + + + | BASOPHILS ABS | 0.11 (H)Comment: Testing performed at [facility], | 0.00 - 0.10 K/uL | | | [address] [place] | | | | [address] | | + + + + + + + | Specimen | Performing Laboratory | + + + | | [employer] [facility] [address] [place] [address] [address] [place], | | | [place] [address] | + + + Renal function panel (03/07/2018 4:53 AM) + + + + | Component | Value | Ref Range | + + + + | SODIUM | 136 | 135 - 145 mmol/L | + + + + | POTASSIUM | 3.1 (L) | 3.5 - 4.9 mmol/L | + + + + | CHLORIDE | 94 (L) | 99 - 109 mmol/L | + + + + | CO2 | 27 | 23 - 32 mmol/L | + + + + | ANION GAP AGAP | 18 | 5 - 20 mmol/L | + + + + | GLUCOSE | 85 | 65 - 99 mg/dL | + + + + | BUN | 31 (H) | 8 - 25 mg/dL | + + + + | CREATININE | 15.2 (H) | 0.50 - 1.00 mg/dL | + + + + | CALCIUM | 8.0 (L) | 8.5 - 10.5 mg/dL | + + + + | Albumin | 2.2 (L) | 3.6 - 5.0 g/dL | + + + + | PHOSPHORUS | 6.0 (H) | 2.3 - 4.8 mg/dL | + + + + | EGFR | 3 (L)Comment: GFR <60: CHRONIC KIDNEY | >60 mL/min/1.73m2 | | | DISEASE, IF FOUND OVER A 3 MONTH PERIOD.GFR | | | | <15: KIDNEY FAILURE.FOR AMERICANS, | | | | MULTIPLY THE CALCULATED GFR BY | | | | 1.210.Testing performed at [facility], [address] | | | | [place] [address] | | | | | | + + + + + + + | Specimen | Performing Laboratory | + + + | Blood | [facility] [address] [place], | | | [place] [address] | + + + EKG STANDARD 12 LEAD (03/06/2018 8:38 AM) + + + + | Component | Value | Ref Range | + + + + | Ventricular Rate | 65 | BPM | + + + + | Atrial Rate | 65 | BPM | + + + + | P-R Interval | 154 | ms | + + + + | QRS Duration | 84 | ms | + + + + | Q-T Interval | 488 | ms | + + + + | QTC Calculation | 507 | ms | | (Bezet) | | | + + + + | Calculated P [place] | 48 | degrees | + + + + | Calculated R [place] | 71 | degrees | + + + + | Calculated T [place] | 130 | degrees | + + + + | Diagnosis | Normal sinus rhythmT wave abnormality, | | | | consider lateral ischemiaProlonged | | | | QTAbnormal ECGNo previous ECGs | | | | availableConfirmed by RYAN LUGO ([id number]) | | | | on 03/06/2018 11:27:37 AM | | | |Confirmed by RYAN LUGO ([id number]) on 03/06/2018 11:27:37 AM | | | | | | + + + + + + + | Specimen | Performing Laboratory | + + + | | [facility] [address] [place] [address] | + + + Magnesium (03/06/2018 5:25 AM) + + + + | Component | Value | Ref Range | + + + + | MAGNESIUM | 3.2 (H)Comment: Testing performed at [facility], | 1.7 - 2.4 mg/dL | | | [address] [place] [place] | | | | [address] | | + + + + + + + | Specimen | Performing Laboratory | + + + | Blood | [facility] [address] [place] [address] [place], | | | [place] [address] | + + + CBC W/Auto Diff (Reflex to Manual) (03/06/2018 5:25 AM) + + + + | Component | Value | Ref Range | + + + + | WBC | 9.41 | 3.80 - 11.00 K/uL | + + + + | RBC | 4.05 | 3.70 - 5.10 M/uL | + + + + | HGB | 12.0 | 11.3 - 15.5 g/dL | + + + + | HCT | 36.3 | 34.0 - 46.0 % | + + + + | MCV | 89.6 | 80.0 - 100.0 fl | + + + + | MCH | 29.7 | 27.0 - 34.0 pg | + + + + | MCHC | 33.1 | 32.0 - 35.5 g/dL | + + + + | RDW SD | 48.1 | 37 - 53 fl | + + + + | PLT | 336 | 150 - 400 K/uL | + + + + | MPV | 8.0 | fl | + + + + | DIFF TYPE | AUTOMATED | | + + + + | NEUTROPHILS | 68.87 | % | + + + + | LYMPHOCYTES | 21.54 | % | + + + + | MONOCYTES | 6.49 | % | + + + + | EOSINOPHILS | 2.28 | % | + + + + | BASOPHILS | 0.82 | % | + + + + | NEUTROPHILS ABS | 6.48 | 1.90 - 7.40 K/uL | + + + + | LYMPHOCYTES ABS | 2.03 | 1.00 - 3.90 K/uL | + + + + | MONOCYTES ABS | 0.61 | 0.00 - 0.80 K/uL | + + + + | EOSINOPHILS ABS | 0.21 | 0.00 - 0.50 K/uL | + + + + | BASOPHILS ABS | 0.08Comment: Testing performed at [facility];888 | 0.00 - 0.10 K/uL | | | [address]arwal;[place] [address] | | + + + + + + + | Specimen | Performing Laboratory | + + + | Blood | [facility] [address] [facility] [address] | + + + Renal function panel (03/06/2018 5:25 AM) + + + + | Component | Value | Ref Range | + + + + | SODIUM | 138 | 135 - 145 mmol/L | + + + + | POTASSIUM | 3.5 | 3.5 - 4.9 mmol/L | + + + + | CHLORIDE | 96 (L) | 99 - 109 mmol/L | + + + + | CO2 | 29 | 23 - 32 mmol/L | + + + + | ANION GAP AGAP | 17 | 5 - 20 mmol/L | + + + + | GLUCOSE | 75 | 65 - 99 mg/dL | + + + + | BUN | 34 (H) | 8 - 25 mg/dL | + + + + | CREATININE | 15.0 (H) | 0.50 - 1.00 mg/dL | + + + + | CALCIUM | 7.7 (L) | 8.5 - 10.5 mg/dL | + + + + | Albumin | 2.2 (L) | 3.6 - 5.0 g/dL | + + + + | PHOSPHORUS | 5.5 (H) | 2.3 - 4.8 mg/dL | + + + + | EGFR | 3 (L)Comment: GFR <60: CHRONIC KIDNEY | >60 mL/min/1.73m2 | | | DISEASE, IF FOUND OVER A 3 MONTH PERIOD.GFR | | | | <15: KIDNEY FAILURE.FOR AMERICANS, | | | | MULTIPLY THE CALCULATED GFR BY | | | | 1.210.Testing performed at [facility], [address] | | | | [facility] [place] [address] | | | | | | + + + + + + + | Specimen | Performing Laboratory | + + + | Blood | [facility] [address] [facility] [place], | | | [place] [address] | + + + PERITONEAL DIALYSIS (03/05/2018 6:52 PM) + + | Narrative | + + | Santos Rey MD 03/05/2018 9:54 PM The patient is seen & examined during | | dialysis. she says that she feels 'better' today. she denies any cp, sob, abd pain, | | n/v now. The following portions of the patient's history were reviewed and | | updated as appropriate: laboratory data, allergies, current medications, and problem | | list. P.E. BP 96/51 (BP Location: Right upper arm) | Pulse 71 | Temp 98.1 | | F (36.7 C) (Oral) | Resp 16 | Ht 1.575 m (5' 2") | Wt 85.9 kg (189 lb 6 | | oz) Comment: pre PD tx - bedscale | SpO2 97% | ? No | BMI 34.64 | | kg/m General appearance: Pleasant, not in acute distress. Lungs: Good A/E to | | auscultation bilaterally. There are no wheezes. Heart: Regular rate and rhythm | | without any rub, gallop. No murmur. Abdominal exam: Soft and nontender; no | | organomegaly. Extremities: Warm to touch with no leg edema. There is no | | cyanosis. Neurological: Awake, alert, and oriented to time, place, and person. | | Normal gross motor power. There is no asterixis. Access: PD cath site is benign. | | Lab Results Component Value Date BUN 34 (H) 03/05/2018 CREATININE 15.3 (H) | | 03/05/2018 EGFR 3 (L) 03/05/2018 NA 138 03/05/2018 K 3.5 03/05/2018 CL 95 | | (L) 03/05/2018 CO2 29 03/05/2018 CA 7.9 (L) 03/05/2018 PHOS 5.8 (H) 03/05/2018 | | MG 3.5 (H) 03/05/2018 ALB 2.3 (L) 03/05/2018 ALB 2.2 (L) 03/05/2018 HGB 11.0 | | (L) 03/05/2018 Assessment: Ms. Oconnor is a 38 y.o. female patient with ESRD, | | PD. Presented with: Intractable N/V Admitted with: Intractable N/V Found to | | have: PD-associated peritonitis. Complications identified during her dialysis | | treatment: none so far. Recommendations: UF as tolerated Advise fluid | | restriction of 1.2 L per 24 hrs Prot suppl stressed No Epo today; recheck Hb in AM | | Next dialysis treatment is daily per the submitted pre-arana orders. SANTOS REY, | | MD | + + MRSA by PCR (03/05/2018 3:33 AM) + + + + | Component | Value | Ref Range | + + + + | SOURCE | NARES(NOSE) | | + + + + | MRSA PCR | NEGATIVEComment: Testing performed at | NEGATIVE | | | [facility];[address] [place] [address];[place] [address] | | + + + + + + + | Specimen | Performing Laboratory | + + + | Nasopharyngeal - | [address] [address] | | Nares(Nose) | | + + + Phosphorus (03/05/2018 3:32 AM) + + + + | Component | Value | Ref Range | + + + + | PHOSPHORUS | 5.8 (H)Comment: Testing performed at [facility], | 2.3 - 4.8 mg/dL | | | [address] [facility] [place] | | | | [address] | | + + + + + + + | Specimen | Performing Laboratory | + + + | Blood | [facility] [address] [facility] [address] [place], [place] | | [place] [address] | + + + Blood Culture Set 2 (03/05/2018 3:32 AM) + + + + | Component | Value | Ref Range | + + + + | Specimen Description | BLOOD | | + + + + | SPECIAL REQUESTS | RAC | | + + + + | CULTURE | NO GROWTH 6 DAYS | | + + + + + + + | Specimen | Performing Laboratory | + + + | Blood - Blood | [facility] [address] [place], | | | [place] [address] | + + + Liver Function Tests (03/05/2018 3:32 AM) + + + + | Component | Value | Ref Range | + + + + | TOTAL PROTEIN | 6.4 | 6.3 - 8.2 g/dL | + + + + | Albumin | 2.2 (L) | 3.6 - 5.0 g/dL | + + + + | TBIL | 0.4 | 0.1 - 1.5 mg/dL | + + + + | BILI, DIRECT | 0.1 | 0.0 - 0.3 mg/dL | + + + + | ALK PHOS | 92 | 35 - 115 U/L | + + + + | AST | 13 | 10 - 45 U/L | + + + + | ALT | 10Comment: Testing performed at [facility], [address] | 10 - 65 U/L | | | [place] [address] | | + + + + + + + | Specimen | Performing Laboratory | + + + | Blood | [address] [place], | | | [place] [address] | + + + Comprehensive Metabolic Panel (03/05/2018 3:32 AM) + + + + | Component | Value | Ref Range | + + + + | SODIUM | 138 | 135 - 145 mmol/L | + + + + | POTASSIUM | 3.5 | 3.5 - 4.9 mmol/L | + + + + | CHLORIDE | 95 (L) | 99 - 109 mmol/L | + + + + | CO2 | 29 | 23 - 32 mmol/L | + + + + | ANION GAP AGAP | 18 | 5 - 20 mmol/L | + + + + | GLUCOSE | 131 (H) | 65 - 99 mg/dL | + + + + | BUN | 34 (H) | 8 - 25 mg/dL | + + + + | CREATININE | 15.3 (H) | 0.50 - 1.00 mg/dL | + + + + | BUN/CREAT | 2 | | + + + + | CALCIUM | 7.9 (L) | 8.5 - 10.5 mg/dL | + + + + | TOTAL PROTEIN | 6.5 | 6.3 - 8.2 g/dL | + + + + | Albumin | 2.3 (L) | 3.6 - 5.0 g/dL | + + + + | GLOBULIN | 4.2 | 1.3 - 4.9 g/dL | + + + + | A/G | 0.5 (L) | 1.0 - 2.4 | + + + + | TBIL | 0.4 | 0.1 - 1.5 mg/dL | + + + + | ALK PHOS | 94 | 35 - 115 U/L | + + + + | AST | 12 | 10 - 45 U/L | + + + + | ALT | 10 | 10 - 65 U/L | + + + + | EGFR | 3 (L)Comment: GFR <60: CHRONIC KIDNEY | >60 mL/min/1.73m2 | | | DISEASE, IF FOUND OVER A 3 MONTH PERIOD.GFR | | | | <15: KIDNEY FAILURE.FOR AMERICANS, | | | | MULTIPLY THE CALCULATED GFR BY | | | | 1.210.Testing performed at [facility], [address] | | | | [place] [address] | | | | | | + + + + + + + | Specimen | Performing Laboratory | + + + | Blood | [facility] [address] [place] [address] [address] [place], [place] | | [place] [address] | + + + Magnesium (03/05/2018 3:32 AM) + + + + | Component | Value | Ref Range | + + + + | MAGNESIUM | 3.5 (H)Comment: Testing performed at [facility], | 1.7 - 2.4 mg/dL | | | [address] [facility] [place] [place] | | | | [address] | | + + + + + + + | Specimen | Performing Laboratory | + + + | Blood | [address] [place], | | | [place] [address] | + + + CBC W/Auto Diff (Reflex to Manual) (03/05/2018 3:32 AM) + + + + | Component | Value | Ref Range | + + + + | WBC | 12.57 (H) | 3.80 - 11.00 K/uL | + + + + | RBC | 3.70 | 3.70 - 5.10 M/uL | + + + + | HGB | 11.0 (L) | 11.3 - 15.5 g/dL | + + + + | HCT | 32.6 (L) | 34.0 - 46.0 % | + + + + | MCV | 88.0 | 80.0 - 100.0 fl | + + + + | MCH | 29.7 | 27.0 - 34.0 pg | + + + + | MCHC | 33.7 | 32.0 - 35.5 g/dL | + + + + | RDW SD | 47.3 | 37 - 53 fl | + + + + | PLT | 364 | 150 - 400 K/uL | + + + + | MPV | 8.0 | fl | + + + + | DIFF TYPE | MANUAL | | + + + + | Neutrophils Manual | 81 | % | + + + + | Lymphocytes Manual | 16 | % | + + + + | Monocytes Manual | 3 | % | + + + + | Neutrophils Absolute | 10.18 (H) | 1.90 - 7.40 K/uL | + + + + | Lymphocytes Absolute | 2.01 | 1.00 - 3.90 K/uL | + + + + | Monocytes Absolute | 0.38 | 0.00 - 0.80 K/uL | + + + + | MORPHOLOGY | RBC AND PLT MORPHOLOGY APPEAR | | | | NORMALComment: Testing performed at [facility], | | | | [address] [place] | | | | [address] | | + + + + + + + | Specimen | Performing Laboratory | + + + | Blood | [facility] [address] [place], | | | [place] [address] | + + + Blood Culture Set 1 (03/05/2018 3:31 AM) + + + + | Component | Value | Ref Range | + + + + | Specimen Description | BLOOD | | + + + + | SPECIAL REQUESTS | L HAND | | + + + + | GRAM STAIN | GRAM POSITIVE COCCI | | + + + + | GRAM STAIN | SEEN IN AEROBIC BOTTLE | | + + + + | GRAM STAIN | SMEAR RESULTS CALLED TO AND READ BACK BY: | | + + + + | GRAM STAIN | JOYA C AT 1102 ON 03/06/18 PH | | + + + + | CULTURE | STAPHYLOCOCCUS SPECIES, COAGULASE NEGATIVE | | | | (A) | | + + + + | CULTURE | GROWTH IN ONE OF TWO BOTTLES (A) | | + + + + | CULTURE | TIME TO DETECTION: | | + + + + | CULTURE | 1.13 DAYS | | + + + + | CULTURE | POSSIBLE CONTAMINANT, CLINICAL CORRELATION | | | | REQUIRED. | | + + + + + + + | Specimen | Performing Laboratory | + + + | Blood - Blood | [facility] [address] [place], | | | [place] [address] | + + + CT abdomen pelvis with contrast (03/05/2018 2:26 AM) + + + | Specimen | Performing Laboratory | + + + | | [facility] [address] [facility] [place] [address] | + + + + + | Impressions | + + | 1. Possible fatty liver. 2. Bilateral renal atrophy again seen. Peritoneal | | dialysis catheter in the pelvis. 3. Masslike area in the right adnexa measuring 4.9 x | | 3.7 cm. This is similar compared with the prior CT. 4. Trace amount of free fluid. No | | free air. 5. Colonic diverticula. No definite diverticulitis. 6. Appendix appears | | normal. RADIA Electronically signed by Lukas Dean MD on Mar 05 2018 3:51AM | | Referring Provider Line: [phone] ID: [id number] | + + + + | Narrative | + + | EXAM: CT ABDOMEN AND PELVIS EXAM DATE: 03/05/2018 02:27 AM. CLINICAL HISTORY: | | Abdominal pain. COMPARISONS: 09/07/2017. TECHNIQUE: Routine helical CT imaging | | was performed through the abdomen and pelvis. IV contrast: Nonionic. Enteric contrast: | | No. Reconstructions: Coronal and sagittal. In accordance with CT protocol | | optimization, one or more of the following dose reduction techniques were utilized for | | this exam: automated exposure control, adjustment of mA and/or KV based on patient size, | | or use of iterative reconstructive technique. FINDINGS: Lung Bases: Unremarkable. | | Liver: Possible fatty infiltration. Gallbladder/Bile Ducts: Unremarkable. | | Spleen: Normal. Pancreas: Normal. Adrenal Glands: Right adrenal appears normal. | | Left adrenal adenoma. Kidneys: Moderate bilateral atrophy. No masses or | | hydronephrosis. Peritoneal Cavity/Bowel: Colonic diverticula with no definite | | evidence of diverticulitis. No bowel obstruction seen. Trace amount of free fluid in the | | pelvis. No free air. No lymphadenopathy. Peritoneal dialysis catheter again seen in the | | pelvis. Appendix appears normal. Pelvic Organs: Masslike area again seen in the | | right adnexa measuring 4.9 x 3.7 cm. Visualized pelvic organs are otherwise | | unremarkable. Vasculature: No aneurysms or other significant abnormality. Bones: | | No significant abnormality. Other: None. | + + + + | Procedure Note | + + | Migue Schumacher In - 03/05/2018 3:51 AM PDT EXAM:CT ABDOMEN AND PELVISEXAM DATE: | | 03/05/2018 02:27 AM.CLINICAL HISTORY: Abdominal pain.COMPARISONS: 09/07/2017.TECHNIQUE: | | Routine helical CT imaging was performed through the abdomen and pelvis. IV contrast: | | Nonionic. Enteric contrast: No. Reconstructions: Coronal and sagittal.In accordance with | | CT protocol optimization, one or more of the following dose reduction techniques were | | utilized for this exam: automated exposure control, adjustment of mA and/or KV based on | | patient size, or use of iterative reconstructive technique.FINDINGS: Lung Bases: | | Unremarkable.Liver: Possible fatty infiltration.Gallbladder/Bile Ducts: | | Unremarkable.Spleen: Normal.Pancreas: Normal.Adrenal Glands: Right adrenal appears | | normal. Left adrenal adenoma.Kidneys: Moderate bilateral atrophy. No masses or | | hydronephrosis.Peritoneal Cavity/Bowel: Colonic diverticula with no definite evidence of | | diverticulitis. No bowel obstruction seen. Trace amount of free fluid in the pelvis. No | | free air. No lymphadenopathy. Peritoneal dialysis catheter again seen in the pelvis. | | Appendix appears normal.Pelvic Organs: Masslike area again seen in the right adnexa | | measuring 4.9 x 3.7 cm. Visualized pelvic organs are otherwise unremarkable. | | Vasculature: No aneurysms or other significant abnormality.Bones: No significant | | abnormality.Other: None.IMPRESSION:1. Possible fatty liver. 2. Bilateral renal atrophy | | again seen. Peritoneal dialysis catheter in the pelvis. 3. Masslike area in the right | | adnexa measuring 4.9 x 3.7 cm. This is similar compared with the prior CT. 4. Trace | | amount of free fluid. No free air. 5. Colonic diverticula. No definite diverticulitis. | | 6. Appendix appears normal.RADIA Electronically signed by Lukas Dean MD on Mar 05 2018 | | 3:51AM Referring Provider Line: [phone] ID: [id number] | |Pancreas: Normal. | | | |Adrenal Glands: Right adrenal appears normal. Left adrenal adenoma. | | | |Kidneys: Moderate bilateral atrophy. No masses or hydronephrosis. | | | |Peritoneal Cavity/Bowel: Colonic diverticula with no definite evidence of diverticulitis. N o bowel obstruction seen. Trace amount of free fluid in the pelvis. No free air. No lymphade nopathy. Peritoneal dialysis catheter | |again seen in the pelvis. Appendix appears normal. | | | |Pelvic Organs: Masslike area again seen in the right adnexa measuring 4.9 x 3.7 cm. Visuali zed pelvic organs are otherwise unremarkable. | | | |Vasculature: No aneurysms or other significant abnormality. | | | |Bones: No significant abnormality. | | | |Other: None. | | | |IMPRESSION: | | | |1. Possible fatty liver. | |2. Bilateral renal atrophy again seen. Peritoneal dialysis catheter in the pelvis. | |3. Masslike area in the right adnexa measuring 4.9 x 3.7 cm. This is similar compared with the prior CT. | |4. Trace amount of free fluid. No free air. | |5. Colonic diverticula. No definite diverticulitis. | |6. Appendix appears normal. | | | |RADIA | | | | Electronically signed by Lukas Dean MD on Mar 05 2018 3:51AM Referring Provider Line: [phone] ID: [id number] | + + Body fluid cell count (03/05/2018 1:00 AM) + + + + | Component | Value | Ref Range | + + + + | FLUID TYPE | PERITONEAL FLUID | | + + + + | COLOR | YELLOW | | + + + + | APPEARANCE | HAZY | | + + + + | RBC'S | <48632 | /mm3 | + + + + | TOTAL NUCLEATED | 1,685 | /mm3 | | CELLS | | | + + + + | NEUTROPHILS | 56 | % | + + + + | LYMPHOCYTES | 31 | % | + + + + | MONOCYTES/MACROPHAGE | 13 | % | | S | | | + + + + | CELLS COUNTED | 100Comment: Testing performed at [facility];[address] | | | | [address];[place] [address] | | + + + + + + + | Specimen | Performing Laboratory | + + + | Other - Peritoneal | [facility] [address] [place] [address] | | [place] | | + + + C&S (03/05/2018 1:00 AM) + + + + | Component | Value | Ref Range | + + + + | Specimen Description | PERITONEAL FLUID | | + + + + | GRAM STAIN | NO CELLS OR ORGANISMS SEEN | | + + + + | CULTURE | NO GROWTH 4 DAYS | | + + + + + + + | Specimen | Performing Laboratory | + + + | Body Fluid - | [facility] [address] [place] [address] [address] [place], | | Peritoneal Fluid | [place] [address] | + + + Lactic acid (03/04/2018 9:55 PM) + + + + | Component | Value | Ref Range | + + + + | LACTIC ACID | 1.7Comment: Testing performed at [facility];8 | 0.4 - 2.0 mmol/L | | | [facility];[place] [address] | | + + + + + + + | Specimen | Performing Laboratory | + + + | Blood | [facility] [address] [facility] [place] [address] | + + + Comprehensive metabolic panel (03/04/2018 9:55 PM) + + + + | Component | Value | Ref Range | + + + + | SODIUM | 139 | 135 - 145 mmol/L | + + + + | POTASSIUM | 3.8 | 3.5 - 4.9 mmol/L | + + + + | CHLORIDE | 97 (L) | 99 - 109 mmol/L | + + + + | CO2 | 30 | 23 - 32 mmol/L | + + + + | ANION GAP AGAP | 16 | 5 - 20 mmol/L | + + + + | GLUCOSE | 96 | 65 - 99 mg/dL | + + + + | BUN | 33 (H) | 8 - 25 mg/dL | + + + + | CREATININE | 15 (H) | 0.50 - 1.00 mg/dL | + + + + | BUN/CREAT | 2 | | + + + + | CALCIUM | 9.0 | 8.5 - 10.5 mg/dL | + + + + | TOTAL PROTEIN | 7.5 | 6.3 - 8.2 g/dL | + + + + | Albumin | 2.6 (L) | 3.6 - 5.0 g/dL | + + + + | GLOBULIN | 5.0 (H) | 1.3 - 4.9 g/dL | + + + + | A/G | 0.5 (L) | 1.0 - 2.4 | + + + + | TBIL | 0.4 | 0.1 - 1.5 mg/dL | + + + + | ALK PHOS | 106 | 35 - 115 U/L | + + + + | AST | 13 | 10 - 45 U/L | + + + + | ALT | 14 | 10 - 65 U/L | + + + + | EGFR | 3 (L)Comment: GFR <60: CHRONIC KIDNEY | >60 mL/min/1.73m2 | | | DISEASE, IF FOUND OVER A 3 MONTH PERIOD.GFR | | | | <15: KIDNEY FAILURE.FOR AMERICANS, | | | | MULTIPLY THE CALCULATED GFR BY | | | | 1.210.Testing performed at [facility];[address] [place] [address] | | | | vd;[place] [address] | | | | | | + + + + + + + | Specimen | Performing Laboratory | + + + | Blood | [place] [address] [place] [address] | + + + CBC with differential (03/04/2018 9:55 PM) + + + + | Component | Value | Ref Range | + + + + | WBC | 14.92 (H) | 3.80 - 11.00 K/uL | + + + + | RBC | 4.51 | 3.70 - 5.10 M/uL | + + + + | HGB | 12.7 | 11.3 - 15.5 g/dL | + + + + | HCT | 39.4 | 34.0 - 46.0 % | + + + + | MCV | 87.4 | 80.0 - 100.0 fl | + + + + | MCH | 28.2 | 27.0 - 34.0 pg | + + + + | MCHC | 32.2 | 32.0 - 35.5 g/dL | + + + + | RDW SD | 47.7 | 37 - 53 fl | + + + + | PLT | 414 (H) | 150 - 400 K/uL | + + + + | MPV | 7.9 | fl | + + + + | DIFF TYPE | AUTOMATED | | + + + + | NEUTROPHILS | 88.36 | % | + + + + | LYMPHOCYTES | 8.25 | % | + + + + | MONOCYTES | 2.59 | % | + + + + | EOSINOPHILS | 0.09 | % | + + + + | BASOPHILS | 0.71 | % | + + + + | NEUTROPHILS ABS | 13.18 (H) | 1.90 - 7.40 K/uL | + + + + | LYMPHOCYTES ABS | 1.23 | 1.00 - 3.90 K/uL | + + + + | MONOCYTES ABS | 0.39 | 0.00 - 0.80 K/uL | + + + + | EOSINOPHILS ABS | 0.01 | 0.00 - 0.50 K/uL | + + + + | BASOPHILS ABS | 0.11 (H) | 0.00 - 0.10 K/uL | + + + + | MORPHOLOGY | RBC AND PLT MORPHOLOGY APPEAR NORMAL | | + + + + | Platelet Estimate | ADEQUATE | | + + + + | Diff Comment | SLIDE SCANNED, AGREES WITH AUTOMATED | | | | RESULTS.Comment: Testing performed at | | | | [facility];[address] [place] [address];[place] [address] | | + + + + + + + | Specimen | Performing Laboratory | + + + | Blood | [facility] [address] [place] [address] | + + + in this encounter Visit Diagnoses + + | Diagnosis | + + | Abdominal pain - Primary | + + | Abdominal pain, unspecified site | + + | Generalized abdominal pain | + + | Abdominal pain, generalized | + + | ESRD on peritoneal dialysis | + + | End stage renal disease | + + | Non-intractable vomiting with nausea, unspecified vomiting type | + + | Gastroesophageal reflux disease without esophagitis | + + | Esophageal reflux | + + | Anemia in ESRD (end-stage renal disease) (HCC) | + + | Anemia in chronic kidney disease | + + Admitting Diagnoses + + | Diagnosis | + + | Generalized abdominal pain | + + | Abdominal pain, generalized | + + | End-stage renal disease on peritoneal dialysis (HCC) | + + | End stage renal disease | + + Administered Medications + +--------+---------+------+------+------+ | Medication Order | MAR | Action | Dose | Rate | Site | | | Action | Date | | | | + +--------+---------+------+------+------+ + +---+ | acetaminophen (TYLENOL) | | | suppository 650 mg 650 mg, | | | Rectal, Every 6 Hours PRN, Mild | | | Pain (1-3), Fever, Starting Nina | | | 03/05/18 at 0144 | | + +---+ | | | + +---+ | acetaminophen (TYLENOL) tablet | | | 650 mg 650 mg, Oral, Every 6 | | | Hours PRN, Mild Pain (1-3), | | | Fever, Starting Nina 03/05/18 at | | | 0144 | | + +---+ | | | + +---+ + +-------+ +--------+---+---+ | ALPRAZolam (XANAX) tablet 0.5 | Given | | 0.5 mg | | | | mg 0.5 mg, Oral, Nightly PRN, | | 8 22:41 | | | | | Sleep, Starting Fri03/05/18 at | | PDT | | | | | 0144 | | | | | | + +-------+ +--------+---+---+ +---+---+ | | | +---+---+ + +-------+ +--------+---+---+ | amLODIPine (NORVASC) tablet 2.5 | Given | | 2.5 mg | | | | mg 2.5 mg, Oral, Daily, First | | 8 09:32 | | | | | dose on Fri03/06/18 at 0900 | | PDT | | | | + +-------+ +--------+---+---+ +-------+ +--------+---+---+ | Given | | 2.5 mg | | | | | 8 10:50 | | | | | | PDT | | | | +-------+ +--------+---+---+ | Given | | 2.5 mg | | | | | 8 09:00 | | | | | | PDT | | | | +-------+ +--------+---+---+ +---+---+ | | | +---+---+ + +-------+ +-----+-------+---+ | cefTAZidime (FORTAZ) 1 g in | Given | | 1 g | 100 | | | sodium chloride (IV) 0.9 % 50 mL | | 8 09:32 | | mL/hr | | | IVPB 1 g, Intravenous, | | PDT | | | | | Administer over 30 Minutes, | | | | | | | Daily, First dose on Fri03/06/18 | | | | | | | at 0900 | | | | | | + +-------+ +-----+-------+---+ +-------+ +-----+-------+---+ | Given | | 1 g | 100 | | | | 8 10:55 | | mL/hr | | | | PDT | | | | +-------+ +-----+-------+---+ | Given | | 1 g | 100 | | | | 8 09:01 | | mL/hr | | | | PDT | | | | +-------+ +-----+-------+---+ +---+---+ | | | +---+---+ + +-------+ +-----+-------+---+ | cefTAZidime (FORTAZ) 2 g in | Given | | 2 g | 100 | | | sodium chloride (IV) 0.9 % 50 mL | | 8 10:26 | | mL/hr | | | IVPB 2 g, Intravenous, | | PDT | | | | | Administer over 30 Minutes, | | | | | | | Daily, First dose on [facility] 03/05/18 | | | | | | | at 1000 | | | | | | + +-------+ +-----+-------+---+ +---+---+ | | | +---+---+ + +-------+ +---------+---+---+ | ergocalciferol (DRISDOL) | Given | | 50,000 | | | | capsule 50,000 Units 50,000 | | 8 09:00 | Units | | | | Units, Oral, Weekly, First dose | | PDT | | | | | on 03/09/18 at 0900 | | | | | | + +-------+ +---------+---+---+ + +---+ | | | + +---+ | famotidine (PEPCID) IVPB 20 mg | | | 20 mg, Intravenous, Administer | | | over 30 Minutes, Daily, First | | | dose on [facility] 03/05/18 at 0900 | | + +---+ | | | + +---+ + +-------+ +-------+---+---+ | famotidine (PEPCID) tablet 20 | Given | | 20 mg | | | | mg 20 mg, Oral, Daily, First | | 8 09:32 | | | | | dose on [facility] 03/05/18 at 0900 | | PDT | | | | + +-------+ +-------+---+---+ +-------+ +-------+---+---+ | Given | | 20 mg | | | | | 8 10:50 | | | | | | PDT | | | | +-------+ +-------+---+---+ | Given | | 20 mg | | | | | 8 09:00 | | | | | | PDT | | | | +-------+ +-------+---+---+ +---+---+ | | | +---+---+ + +-------+ +---+---+---+ | gentamicin (GARAMYCIN) 0.1 % | Given | | | | | | ointment Topical, Daily, First | | 8 09:33 | | | | | dose on [facility] 03/05/18 at 1900, Gent | | PDT | | | | | to be applied on exit site daily | | | | | | | every dressing change | | | | | | + +-------+ +---+---+---+ +-------+ +---+---+---+ | Given | | | | | | | 8 17:40 | | | | | | PDT | | | | +-------+ +---+---+---+ | Given | | | | | | | 8 09:12 | | | | | | PDT | | | | +-------+ +---+---+---+ +---+---+ | | | +---+---+ + +-------+ +--------+---+---+ | heparin (porcine) 5000 | Given | | 5,000 | | | | unit/0.5mL injection 5,000 Units | | 8 20:31 | Units | | | | 5,000 Units, Subcutaneous, Every | | PDT | | | | | 12 Hours Scheduled (2 times per | | | | | | | day), First dose on [facility] 03/05/18 | | | | | | | at 0900 | | | | | | + +-------+ +--------+---+---+ +-------+ +--------+---+---+ | Given | | 5,000 | | | | | 8 20:34 | Units | | | | | PDT | | | | +-------+ +--------+---+---+ | Given | | 5,000 | | | | | 8 09:00 | Units | | | | | PDT | | | | +-------+ +--------+---+---+ +---+---+ | | | +---+---+ + +-------+ + +---+---+ | HYDROcodone-acetaminophen | Given | | 1 tablet | | | | (NORCO) 5-325 MG per tablet 1 | | 8 07:08 | | | | | tablet 1 tablet, Oral, Every 4 | | PDT | | | | | Hours PRN, Moderate Pain (4-6), | | | | | | | Starting [facility] 03/05/18 at 1213 | | | | | | + +-------+ + +---+---+ +-------+ + +---+---+ | Given | | 1 tablet | | | | | 8 13:07 | | | | | | PDT | | | | +-------+ + +---+---+ | Given | | 1 tablet | | | | | 8 16:58 | | | | | | PDT | | | | +-------+ + +---+---+ +---+---+ | | | +---+---+ + +-------+ +--------+---+---+ | HYDROmorphone (DILAUDID) | Given | | 0.5 mg | | | | injection 0.5 mg 0.5 mg, | | 8 04:49 | | | | | Intravenous, Every 3 Hours PRN, | | PDT | | | | | Moderate Pain (4-6), Starting Nina | | | | | | | 03/05/18 at 0103 | | | | | | + +-------+ +--------+---+---+ +-------+ +--------+---+---+ | Given | | 0.5 mg | | | | | 8 01:34 | | | | | | PDT | | | | +-------+ +--------+---+---+ | Given | | 0.5 mg | | | | | 8 20:36 | | | | | | PDT | | | | +-------+ +--------+---+---+ +---+---+ | | | +---+---+ + +-------+ +--------+---+---+ | HYDROmorphone (DILAUDID) | Given | | 0.5 mg | | | | injection 0.5 mg 0.5 mg, | | 8 14:19 | | | | | Intravenous, Every 3 Hours PRN, | | PDT | | | | | Moderate Pain (4-6), Starting Sun | | | | | | | 03/08/18 at 1424 | | | | | | + +-------+ +--------+---+---+ +---+---+ | | | +---+---+ + +-------+ +------+---+---+ | HYDROmorphone (DILAUDID) | Given | | 1 mg | | | | injection 1 mg 1 mg, | | 8 22:00 | | | | | Intravenous, Once, 03/04/18 at | | PDT | | | | | 2148, For 1 dose | | | | | | + +-------+ +------+---+---+ +---+---+ | | | +---+---+ + +-------+ +------+---+---+ | HYDROmorphone (DILAUDID) | Given | | 1 mg | | | | injection 1 mg 1 mg, | | 8 07:07 | | | | | Intravenous, Every 3 Hours PRN, | | PDT | | | | | Severe Pain (7-10), Starting Nina | | | | | | | 03/05/18 at 0103 | | | | | | + +-------+ +------+---+---+ +-------+ +------+---+---+ | Given | | 1 mg | | | | | 8 22:08 | | | | | | PDT | | | | +-------+ +------+---+---+ | Given | | 1 mg | | | | | 8 09:40 | | | | | | PDT | | | | +-------+ +------+---+---+ +---+---+ | | | +---+---+ + +-------+ +---------+---+---+ | iopamidol (ISOVUE-300) 61 % | Given | | 100 mLs | | | | injection 100 mL 100 mL, | | 8 02:10 | | | | | Intravenous, Img Once PRN, Other, | | PDT | | | | | Starting [facility] 03/05/18 at 0208, | | | | | | | For 1 dose | | | | | | + +-------+ +---------+---+---+ +---+---+ | | | +---+---+ + +-------+ +------+---+---+ | LORazepam (ATIVAN) injection 1 | Given | | 1 mg | | | | mg 1 mg, Intravenous, Once, Fri | | 8 12:49 | | | | | 03/06/18 at 1300, For 1 dose | | PDT | | | | + +-------+ +------+---+---+ +---+---+ | | | +---+---+ + +-------+ +------+---+---+ | metoclopramide (REGLAN) | Given | | 5 mg | | | | injection 5 mg 5 mg, | | 8 12:49 | | | | | Intravenous, Once, Fri03/06/18 at | | PDT | | | | | 1300, For 1 dose | | | | | | + +-------+ +------+---+---+ +---+---+ | | | +---+---+ + +-------+ +------+---+---+ | ondansetron (ZOFRAN) injection | Given | | 4 mg | | | | 4 mg 4 mg, Intravenous, Every 6 | | 8 23:33 | | | | | Hours PRN, Nausea, Vomiting, | | PDT | | | | | Starting Nina 03/05/18 at 0144 | | | | | | + +-------+ +------+---+---+ +-------+ +------+---+---+ | Given | | 4 mg | | | | | 8 05:31 | | | | | | PDT | | | | +-------+ +------+---+---+ | Given | | 4 mg | | | | | 8 12:43 | | | | | | PDT | | | | +-------+ +------+---+---+ + +---+ | | | + +---+ | ondansetron (ZOFRAN) tablet 4 | | | mg 4 mg, Oral, Every 6 Hours | | | PRN, Nausea, Vomiting, Starting | | | Nina 03/05/18 at 0144 | | + +---+ | | | + +---+ + +-------+ +--------+---+---+ | potassium chloride (K-DUR) CR | Given | | 20 mEq | | | | tablet 20 mEq 20 mEq, Oral, | | 8 10:50 | | | | | Once, 03/08/18 at 1030, For 1 | | PDT | | | | | dose | | | | | | + +-------+ +--------+---+---+ +---+---+ | | | +---+---+ + +-------+ +--------+---+---+ | potassium chloride (K-DUR) CR | Given | | 20 mEq | | | | tablet 20 mEq 20 mEq, Oral, | | 8 13:07 | | | | | Daily With Breakfast, First dose | | PDT | | | | | on 03/09/18 at 1200 | | | | | | + +-------+ +--------+---+---+ +---+---+ | | | +---+---+ + +---------+ +---------+-------+---+ | promethazine (PHENERGAN) IVPB | New Bag | | 12.5 mg | 100 | | | 12.5 mg 12.5 mg, Intravenous, | | 8 22:00 | | mL/hr | | | Administer over 15 Minutes, Once, | | PDT | | | | | 03/04/18 at 2148, For 1 dose, | | | | | | | When ordered with ondansetron, | | | | | | | use promethazine as second | | | | | | | treatment choice. | | | | | | + +---------+ +---------+-------+---+ +---+---+ | | | +---+---+ + +-------+ +-------+---+---+ | promethazine (PHENERGAN) tablet | Given | | 25 mg | | | | 25 mg 25 mg, Oral, Every 6 | | 8 22:41 | | | | | Hours PRN, Nausea, Starting Nina | | PDT | | | | | 03/05/18 at 0144 | | | | | | + +-------+ +-------+---+---+ +-------+ +-------+---+---+ | Given | | 25 mg | | | | | 8 11:06 | | | | | | PDT | | | | +-------+ +-------+---+---+ | Given | | 25 mg | | | | | 8 16:58 | | | | | | PDT | | | | +-------+ +-------+---+---+ +---+---+ | | | +---+---+ + +-------+ + +---+---+ | sevelamer (RENVELA) tablet | Given | | 1,600 mg | | | | 1,600 mg 1,600 mg, Oral, 3 Times | | 8 08:59 | | | | | Daily With Meals, First dose on | | PDT | | | | | Nina 03/05/18 at 0800 | | | | | | + +-------+ + +---+---+ +-------+ + +---+---+ | Given | | 1,600 mg | | | | | 8 13:09 | | | | | | PDT | | | | +-------+ + +---+---+ | Given | | 1,600 mg | | | | | 8 16:57 | | | | | | PDT | | | | +-------+ + +---+---+ +---+---+ | | | +---+---+ + +---------+ +---------+---+---+ | sodium chloride (bolus) 0.9 % | New Bag | | 500 mLs | | | | 500 mL 500 mL, Intravenous, | | 8 22:01 | | | | | Administer over 5 Minutes, Once, | | PDT | | | | | 03/04/18 at 2148, For 1 dose | | | | | | + +---------+ +---------+---+---+ +---+---+ | | | +---+---+ + +-------+ +--------+---+---+ | sodium chloride 0.9 % flush 10 | Given | | 10 mLs | | | | mL 10 mL, Intravenous, Every 8 | | 8 20:35 | | | | | Hours, First dose on Fri03/04/18 | | PDT | | | | | at 2148 | | | | | | + +-------+ +--------+---+---+ +-------+ +--------+---+---+ | Given | | 10 mLs | | | | | 8 07:09 | | | | | | PDT | | | | +-------+ +--------+---+---+ | Given | | 10 mLs | | | | | 8 13:00 | | | | | | PDT | | | | +-------+ +--------+---+---+ +---+---+ | | | +---+---+ + +-------+ + +---+---+ | vancomycin (VANCOCIN) 1000 | Given | | 1,000 mg | | | | mg/250 mL IVPB 1,000 mg, | | 8 13:00 | | | | | Intravenous, Administer over 60 | | PDT | | | | | Minutes, Once, [facility] 03/09/18 at | | | | | | | 1200, For 1 dose | | | | | | + +-------+ + +---+---+ +---+---+ | | | +---+---+ + +-------+ + +---+---+ | vancomycin (VANCOCIN) 1500 | Given | | 1,500 mg | | | | mg/250 mL IVPB 1,500 mg, | | 8 11:15 | | | | | Intravenous, Administer over 90 | | PDT | | | | | Minutes, Once, [facility] 03/05/18 at | | | | | | | 1000, For 1 dose | | | | | | + +-------+ + +---+---+ +---+---+ | | | +---+---+ + +-------+ +------+---+---+ | zolpidem (AMBIEN) tablet 5 mg | Given | | 5 mg | | | | 5 mg, Oral, Nightly PRN, Sleep, | | 8 04:58 | | | | | may repeat once in 1 hr if | | PDT | | | | | initial dose not effective, | | | | | | | Starting [facility] 03/05/18 at 0144 | | | | | | + +-------+ +------+---+---+ +-------+ +------+---+---+ | Given | | 5 mg | | | | | 8 01:09 | | | | | | PDT | | | | +-------+ +------+---+---+ | Given | | 5 mg | | | | | 8 23:34 | | | | | | PDT | | | | +-------+ +------+---+---+ +---+---+ | | | +---+---+ in this encounter
--- OUTSIDE RECORDS SUMMARY | ~2018-03-11 | XMS | Encounter Summary ---
Demographics + + + | Address | [address] | | | [place] [address] | + + + | Home Phone | | + + + | Preferred Language | Unknown | + + + | Marital Status | | + + + | Christianity Affiliation | Unknown | + + + | Race | Unknown | + + + | Ethnic Group | Unknown | + + + Author + + + | Author | [facility] [employer] | + + + | Organization | [facility] [employer] [facility] | + + + | Address [...] Team Providers + +------+ + | Care Applied Marine Physics Professor Name | Role | Phone | + +------+ + | Aura Saldaña | PCP | | + +------+ + Reason for Visit +--------+ + | Reason | Comments | +--------+ + | Other | November 2017-[facility] Provider Rounding Dialysis Note | +--------+ + Encounter Details +--------+ + + + + | Date | Type | Department | Care Team | Description | +--------+ + + + + | 12/15/ | Documentati | [facility] | Santos Chi MD | Other (November | | 2017 | on Only | Nephrology [address] | [address] | 2018-[facility] Provider | | | | [facility] | [address], [place] | Rounding Dialysis | | | | [place], [place] | [address] | Note) | | | | [address] | | | | | | [phone] | | | +--------+ + + + [...]
--- OUTSIDE RECORDS SUMMARY | ~2018-03-11 | XMS | Clinical Summary ---
Demographics + + + | Address | [address] | | | [place] [address] | + + + | Home Phone | | + + + | Preferred Language | Unknown | + + + | Marital Status | | + + + | Latter-Day Affiliation | Unknown | + + + | Race | Unknown | + + + | Ethnic Group | Unknown | + + + Author + + + | Author | [facility] [employer] | + + + | Organization | [facility] [employer] | + + + | Address [...] Providers + +------+ + | Care Business Development Associate Name | Role | Phone | + +------+ + | Aura Saldaña | PP | | + +------+ + Allergies No Known Allergies Current Medications + + +--------+---------+------+------+-------+ | Prescription | Sig. | Disp. | Refills | Star | End | Statu | | | | | | t | Date | s | | | | | | Date | | | + + +--------+---------+------+------+-------+ | ergocalciferol | Take 50,000 Units by | | | | | Activ | | (DRISDOL) 31012 | mouth once a week. | | | | | e | | UNITS capsule | | | | | | | + + +--------+---------+------+------+-------+ | amLODIPine | Take 2.5 mg by mouth | | | | | Activ | | (NORVASC) 2.5 MG | daily. | | | | | e | | tablet | | | | | | | + + +--------+---------+------+------+-------+ | gentamicin | Apply topically 3 | 15 g | 1 | 03/1 | | Activ | | (GARAMYCIN) 0.1 % | (three) times daily. | | | 8/20 | | e | | ointment | | | | 17 | | | + + +--------+---------+------+------+-------+ | sevelamer | Take 2 tablets by | 180 | 1 | 03/1 | | Activ | | (RENVELA) 800 MG | mouth 3 (three) | tablet | | 8/20 | | e | | tablet | times daily with | | | 17 | | | | | meals. | | | | | | + + +--------+---------+------+------+-------+ | ondansetron | Take 1 tablet by | 30 | 11 | 03/1 | | Activ | | (ZOFRAN) 8 MG tablet | mouth every 8 | tablet | | 8/20 | | e | | | (eight) hours as | | | 17 | | | | | needed for Nausea. | | | | | | + + +--------+---------+------+------+-------+ | ALPRAZolam (XANAX) | Take 0.5 mg by mouth | | | | | Activ | | 0.5 MG tablet | nightly as needed | | | | | e | | | for Sleep. | | | | | | + + +--------+---------+------+------+-------+ | LORazepam (ATIVAN) | Take 1 mg by mouth | | | | | Activ | | 1 MG tablet | every 8 (eight) | | | | | e | | | hours as needed for | | | | | | | | Anxiety. | | | | | | + + +--------+---------+------+------+-------+ | promethazine | Take 1 tablet by | 30 | 3 | 04/3 | | Activ | | (PHENERGAN) 25 MG | mouth every 6 (six) | tablet | | 0/20 | | e | | tablet | hours as needed for | | | 18 | | | | | Nausea. | | | | | | + + +--------+---------+------+------+-------+ | potassium chloride | Take 1 tablet by | 30 | 3 | 04/3 | 04/3 | Activ | | SA (K-ANUPAM,OHLLY) | mouth daily. | tablet | | 0/20 | 0/20 | e | | 20 MEQ tablet | | | | 18 | 19 | | + + +--------+---------+------+------+-------+ | zolpidem (AMBIEN) | Take 1 tablet [...] tablet by | 20 | 0 | 04/3 | | Activ | | HYDROcodone-acetamin | mouth every 6 (six) | tablet | | 0/20 | | e | | ophen (NORCO) 5-325 | hours as needed. | | | 18 | | | | MG per tablet | | | | | | | + + +--------+---------+------+------+-------+ | potassium chloride | Take 1 tablet by | 30 | 0 | 07/2 | 04/3 | Disco | | (K-DUR,KLOR-CON) 20 | mouth daily. | tablet | | 7/20 | 0/20 | ntinu | | MEQ tablet | | | | 17 | 18 | ed | + + +--------+---------+------+------+-------+ | promethazine | Take 1 tablet by | 30 | 0 | 11/0 | 04/3 | Disco | | (PHENERGAN) 25 MG | mouth every 6 (six) | tablet | | 4/20 | 0/20 | ntinu | | tablet | hours as needed for | | | 17 | 18 | ed | | | Nausea. | | | | | | + + +--------+---------+------+------+-------+ Active Problems + + + | Problem | Noted Date | + + + | Right ovarian cyst | 09/07/2017 | + + + | Epigastric pain | 09/07/2017 | + + + | Leukocytosis | 09/07/2017 | + + + | Abdominal pain | 06/04/2017 | + + + | ESRD on peritoneal dialysis | 06/04/2017 | + + + | Hypokalemia | 06/04/2017 | + + + | Morbid obesity due to excess calories (HCC) | 06/04/2017 | + + + | Nausea with vomiting | 06/04/2017 | + + + | Gastroesophageal reflux disease without esophagitis | 01/23/2017 | + + + | Abdominal wall abscess | 01/22/2017 | + + + | Adrenal mass (HCC) | 10/25/2015 | + + + | Hypoalbuminemia | | + + + | Anemia in ESRD (end-stage renal disease) (HCC) | | + + + Resolved Problems + + + + | Problem | Noted | Resolved | | | Date | Date | + + + + | Intractable hiccups | 09/07/20 | | | | 17 | 7 | + + + + | Hypercalcemia | 09/07/20 | | | | 17 | 7 | + + + + | Acute gastroenteritis | 06/04/20 | | | | 17 | 7 | + + + + | Elevated lipase | 01/24/20 | | | | 17 | 7 | + + + + | Metabolic [...] | 7 | + + + + Encounters +--------+ + + + + | Date | Type | Specialty | Care Team | Description | +--------+ + + + + | 03/10/ | Documentati | | Santos Rey MD | Other (February | | 2017 | on Only | | | 2018-[facility] Provider | | | | | | Rounding Dialysis | | | | | | Note) | +--------+ + + + + | 03/06/ | Documentati | | Terry | Yeimy ([facility] -epo | | 2017 | on Only | | MARIELA Lucas | depot order form- | | | | | | signed order by | | | | | | provider- 03/06/18 - | | | | | | ) | +--------+ + + + + | 03/04/ | Hospital | | Irvin Mujica MD | Non-intractable | | 2017 - | Encounter | | Espinoza, | vomiting with | | | | | MD Jose | nausea, unspecified | | 03/09/ | | | Kemal Maloney | vomiting type | | 2017 | | | MD Gavi Bhatia, | (Primary Dx); | | | | | MD Cesar | Generalized | | | | | | abdominal pain; | | | | | | End-stage renal | | | | | | disease on | | | | | | peritoneal dialysis | | | | | | (HCC) | +--------+ + + + + +---+ + | | Discharge | | | Summaries | | | - | | | Leah, | | | Lukas Raymundo | | | -R2 - | | | 03/09/2018 | | | 6:55 AM | | | PDT | | | Formatting | | | of this | | | note may be | | | different | | | from the | | | original.Se | | | rvice: | | | Hospitalist | | | Discharge | | | SummaryPt: | | | Ramona C | | | [place] | | | AGE/SEX: 38 | | | y.o. | | | female | | | MRN: | | | [id number] | | | OM: | | | [id number] | | | P[facility] | | | [facility] | | | : | | [facility] 1980[facility] | | | te of | | | Admission: | | | | | | 03/04/2018Da | | | te of | | | Discharge: | | | Discharge | | | Provider: | | | Lukas A | | | Leah, | | | MD-R2/Dr. | | | Kemal | | | PiryaniTrea | | | tment Team: | | | Consulting | | | Physician: | | | Santos H | | | Akoum, | | | MDConsultin | | | g | | | Physician: | | | Linden | | | Arif, | | | MDAdmitting | | | Provider: | | | Jose | | | Juan-Met | | | z, | | | MDDischarge | | | Diagnoses: | | | | | | Principal | | | Problem: | | | Abdominal | | | painActive | | | Problems: | | | Gastroesoph | | | ageal | | | reflux | | | disease | | | without | | | esophagitis | | | ESRD on | | | peritoneal | | | dialysis | | | Nausea with | | | vomiting | | | Anemia in | | | ESRD | | | (end-stage | | | renal | | | disease) | | | (HCC)Resolv | | | ed | | | Problems: | | | * No | | | resolved | | | hospital | | | problems. | | | *BRIEF | | | HISTORY OF | | | PRESENTATIO | | | N and | | | HOSPITAL | | | COURSE: | | | This is a | | | 2-year-old | | | female with | | | past | | | medical | | | history of | | | end-stage | | | renal | | | disease on | | | peritoneal | | | dialysis | | | due to | | | glomerulone | | | phritis and | | | | | | gastroesoph | | | ageal | | | reflux | | | disease who | | | presents | | | with sudden | | | onset | | | abdominal | | | pain. She | | | came to the | | | hospital | | | where she | | | was | | | diagnosed | | | with likely | | | peritoneal | | | dialysis | | | associated | | | peritonitis | | | . This was | | | confirmed | | | with a cell | | | count | | | which | | | showed a | | | PMN count | | | of greater | | | than 1000. | | | The patient | | | was | | | started on | | | vancomycin | | | and Fortaz. | | | She | | | improved | | | throughout | | | the | | | hospitaliza | | | tion. Her | | | last PMN | | | count was | | | 9. She was | | | discharged | | | home to | | | have 10 | | | more days | | | of | | | antibiotics | | | to be | | | administere | | | d by her | | | peritoneal | | | dialysis | | | nurse.DISCH | | | ARGE | | | EXAMVital | | | Signs:BP | | | 113/78 (BP | | | Location: | | | Left upper | | | arm) | | | | Pulse 80 | | | | Temp 98.1 | | | F (36.7 | | | C) (Oral) | | | | Resp 18 | | | | Ht | | | 1.575 m (5' | | | 2") | Wt | | | 83.9 kg | | | (184 lb | | | 15.5 oz) | | | | SpO2 97% | | | | | | | Breastfeedi | | | ng? No | | | | BMI 33.83 | | | kg/m | | | Physical | | | ExamPhysica | | | l Exam | | | Constitutio | | | nal: She is | | | oriented | | | to person, | | | place, and | | | time. She | | | appears | | | well-nouris | | | hed. No | | | distress. | | | HENT: Head: | | | | | | Normocephal | | | ic and | | | atraumatic. | | | Right Ear: | | | External | | | ear normal. | | | Left Ear: | | | External | | | ear normal. | | | Eyes: | | | Conjunctiva | | | e are | | | normal. No | | | scleral | | | icterus. | | | Neck: No | | | tracheal | | | deviation | | | present. | | | Cardiovascu | | | lar: Normal | | | rate, | | | regular | | | rhythm, | | | normal | | | heart | | | sounds and | | | intact | | | distal | | | pulses. | | | Pulmonary/C | | | hest: | | | Effort | | | normal and | | | breath | | | sounds | | | normal. No | | | stridor. No | | | | | | respiratory | | | distress. | | | Abdomina/Gl | | | : Soft. She | | | exhibits | | | no | | | distension. | | | There is | | | no | | | tenderness. | | | Tenderness | | | resolved, | | | Neurologica | | | l: She is | | | alert and | | | oriented to | | | person, | | | place, and | | | time. Skin: | | | Skin is | | | warm and | | | dry. | | | DATARecent | | | Results | | | (from the | | | past 24 | | | hour(s)) | | | Renal | | | function | | | panel | | | Collection | | | Time: | | | 03/09/18 | | | 4:48 AM | | | Result | | | Value Ref | | | Range | | | SODIUM 139 | | | 135 - 145 | | | mmol/L | | | POTASSIUM | | | 2.8 (L) 3.5 | | | - 4.9 | | | mmol/L | | | CHLORIDE 98 | | | (L) 99 - | | | 109 mmol/L | | | CO2 24 23 | | | - 32 mmol/L | | | ANION GAP | | | AGAP 20 5 | | | - 20 mmol/L | | | GLUCOSE | | | 84 65 - 99 | | | mg/dL BUN | | | 28 (H) 8 - | | | 25 mg/dL | | | CREATININE | | | 15.2 (H) | | | 0.50 - 1.00 | | | mg/dL | | | CALCIUM 7.9 | | | (L) 8.5 - | | | 10.5 mg/dL | | | Albumin | | | 2.0 (L) 3.6 | | | - 5.0 g/dL | | | | | | PHOSPHORUS | | | 5.6 (H) 2.3 | | | - 4.8 | | | mg/dL EGFR | | | 3 (L) >60 | | | mL/min/1.73 | | | m2 | | | Vancomycin, | | | Random | | | Collection | | | Time: | | | 03/09/18 | | | 4:48 AM | | | Result | | | Value Ref | | | Range | | | VANCOMYCIN, | | | RANDOM | | | 23.51 ug/mL | | | | | | RadiologyCt | | | Abdomen | | | Pelvis With | | | | | | ContrastRes | | | ult Date: | | | . | | | Possible | | | fatty | | | liver. 2. | | | Bilateral | | | renal | | | atrophy | | | again seen. | | | Peritoneal | | | dialysis | | | catheter in | | | the | | | pelvis. 3. | | | Masslike | | | area in the | | | right | | | adnexa | | | measuring | | | 4.9 x 3.7 | | | cm. This is | | | similar | | | compared | | | with the | | | prior CT. | | | 4. Trace | | | amount of | | | free fluid. | | | No free | | | air. 5. | | | Colonic | | | diverticula | | | . No | | | definite | | | diverticuli | | | tis. 6. | | | Appendix | | | appears | | | normal. | | | RADIA | | | Electronica | | | lly signed | | | by Lukas | | | MD Jermaine | | | on Mar 05 | | | 2018 | | | 3:51AM | | | Referring | | | Provider | | | Line: | | | [phone] | | | 5SITE ID: | | | [id number] | | | ent is to | | | be | | | discharged | | | home. She | | | will be | | | followed up | | | tomorrow | | | with her | | | peritoneal | | | dialysis | | | nurse to | | | continue | | | her | | | outpatient | | | antibiotic | | | therapy.Dis | | | position: | | | HomeConditi | | | on: | | | GoodCode | | | Status: | | | DNR/DNINo | | | discharge | | | procedures | | | on | | | file.Follow | | | | | | up:[facility] | | [facility] | | | [address] | | | [place] | | | [phone] | | | [phone] 1 | | | weekhospita | | | l follow up | | | Medication | | | List | | | START | | | taking | | | these | | | medications | | | | | | HYDROcodone | | | -acetaminop | | | hen 5-325 | | | MG per | | | tabletQTY: | | | 20 | | | tabletRefil | | | ls: | | | 0Commonly | | | known as: | | | NORCOTake 1 | | | tablet by | | | mouth every | | | 6 (six) | | | hours as | | | needed. | | | zolpidem 5 | | [...] | | | effective). | | | CONTINUE | | | [...] | | ergocalcife | | | rol [address] | | | units | | | [...] | | | daily. | | | LORazepam 1 | | [...] | e 25 MG | | | tabletQTY: | | | 30 | | | tabletRefil | | | ls: | | | 3Commonly | | | known as: | | | PHENERGANTa | | | ke 1 tablet | | | by mouth | | | every 6 | | | (six) hours | | | as needed | | | for Nausea. | | | sevelamer | | | [...] | | with | | | meals. You | | | might also | [...] | | | Provider. | | | Where to | | [...] medications | | | | | | HYDROcodone | | | -acetaminop | | | hen 5-325 | | | MG per | | | tablet | | | potassium | | | chloride SA | | | 20 MEQ | | | tablet | | | promethazin | | | e 25 MG | | | tablet | | | zolpidem 5 | | | MG tablet | | | Discharge | | | took 60 | | | minutes, to | | [...] | | | discharge | | | summary.Mar | | | k A | | | Leah, | | | -R24/ | | | 0184:14 PM | +---+ + +--------+ +---+ + + | 02/23/ | Documentati | | Santos Rey MD | Other (January | on Only | | | 2017-[facility] Provider | | | | | | Rounding Dialysis | | | | | | Note) | +--------+ +---+ + + | 01/14/ | Documentati | | Santos Rey MD | Other (December | on Only | | | 2017-[facility] Provider | | | | | | Rounding Dialysis | | | | | | Note) | +--------+ +---+ + + | 12/15/ | Documentati | | Santos Rey MD | Other (November | Only | | | 2017-[facility] Provider | | | | | | Rounding Dialysis | | | | | | Note) | +--------+ +---+ + + from Last 3 Months Family History + +--------+--------+ + | Relation | Name | Status | Comments | + +--------+--------+ + | Mother | [...] AM PDT | + + + + Plan [...] | | | | Screening (Pap) | 9 | | | + + + + + | Vaccine: | | 11/07/2015 | | | Pneumococcal 19-64 | 6 | | | | Highest Risk (2 of 3 | | | | | - PCV13) | | | | + + + + + | Vaccine: Influenza | | 10/23/2015 | | | (Season Ended) | 8 | | | + + [...] + + from Last 3 Months Results Vancomycin,Random (03/09/2018 4:48 AM) + + + + | Component | Value | Ref Range | + + + + | VANCOMYCIN,RANDOM | 23.51Comment: Testing performed at [facility];888 | ug/mL | | | [address];[place] [address] | | + + + + + + + | Specimen | Performing Laboratory | + + + | | [facility] [address] [place] [address] | + + + Renal function panel (03/09/2018 4:48 AM)Only the most recent of 4 results within the time period is included. + + + + | Component | [...] | | | | 1.210.Testing performed at [facility], [address] | | | | [place] [address] | | | | | | + + + + + + + | Specimen | Performing Laboratory | + + + | Blood | [facility] [address] [place], [place] [address], | | | [place] [address] | + + + FLUID CULT W/GRAM STAIN (03/07/2018 10:55 AM)Only the most recent of 2 results within the period is included. + + + + | Component | [...] + | Body Fluid - Ascites | [facility] [address] [place], | | Fluid | [place] [address] | + + + Body fluid cell count (03/07/2018 10:55 AM)Only the most recent of 2 results within the is included. + + + + | Component | Value | Ref Range | + + + + | FLUID TYPE | PERITONEAL FLUID | | + + + + | COLOR | COLORLESS | | + + + + | APPEARANCE | CLEAR | | + + + + | RBC'S | <67048 | /mm3 | + + + + [...] CELLS COUNTED | 100Comment: Testing performed at [facility];8 | | | | [facility];[place] [address] | | + + + + + + + | Specimen | Performing Laboratory | + + + | Other - Peritoneal | [facility] [address] [place] [address] | | Fluid | | + + + CBC W/Auto Diff (Reflex to Manual) (03/07/2018 4:53 AM)Only the most recent of 4 results w ithin the time period is included. + + + + | Component | [...] ABS | 0.11 (H)Comment: Testing performed at [facility], | 0.00 - 0.10 K/uL | | | [address] [place] | | | | [address] | | + + + + + + + | Specimen | Performing Laboratory | + + + | | [facility] [address] [place], | | | [place] [address] | + + + Magnesium (03/07/2018 4:53 AM)Only the most recent of 3 results within the time period is included. + + + + | Component | Value | Ref Range | + + + + | MAGNESIUM | 3.0 (H)Comment: Testing performed at [facility], | 1.7 - 2.4 mg/dL | | | [address] [place] [place] | | | | [address] | | + + + + + + + | Specimen | Performing Laboratory | + + + | | [facility] [address] [place], | | | [place] [address] | + + + EKG STANDARD 12 [...] + + + + | Calculated P Graham | 48 | degrees | + + + + | Calculated R Graham | 71 | degrees | + + + + | Calculated T Graham | 130 | degrees | + + + + | Diagnosis | Normal sinus rhythmT wave abnormality, | | | | consider lateral ischemiaProlonged | | | | QTAbnormal ECGNo previous ECGs | | | | availableConfirmed by RYAN LUGO ([id number]) | | | | on 03/06/2018 11:27:37 AM | | | |Confirmed by RYAN LUGO (Jane) on 03/06/2018 11:27:37 AM | | | | | | + + + + + + + | Specimen | Performing Laboratory | + + + | | [facility] [address] [place] [address] | + + + PERITONEAL DIALYSIS (03/05/2018 [...] submitted pre-arana orders. SANTOS REY, | | | + + MRSA by PCR (03/05/2018 3:33 AM) + + + + | Component | Value | Ref Range | + + + + | SOURCE | NARES(NOSE) | | + + + + | MRSA PCR | NEGATIVEComment: Testing performed at | NEGATIVE | | | [facility];[address];[place] [address] | | + + + + + + + | Specimen | Performing Laboratory | + + + | Nasopharyngeal - | [facility] [address] [place] [address] | | Nares(Nose) | | + + + Blood Culture Set [...] + + | Blood - Blood | [address] [place], | | | [place] [address] | + + + Phosphorus (03/05/2018 3:32 AM) + + + + | Component | Value | Ref Range | + + + + | PHOSPHORUS | 5.8 (H)Comment: Testing performed at [facility], | 2.3 - 4.8 mg/dL | | | [address] [facility] [place] | | | | [address] | | + + + + + + + | Specimen | Performing Laboratory | + + + | Blood | [facility] [address] [place] [address] [address] [place], | | | [place] [address] | + + + Liver Function Tests [...] | ALT | 10Comment: Testing performed at [facility], [address] | 10 - 65 U/L | | | [place] [address] | | + + + + + + + | Specimen | Performing Laboratory | + + + | Blood | [facility] [address] [place] [address] [place], | | | [place] [address] | + + + Comprehensive Metabolic Panel (03/05/2018 3:32 AM)Only the most recent of 2 results within the time period is included. + + + + | Component | [...] | | | | 1.210.Testing performed at [facility], [facility] | | | | [facility] ([place], [place] [address] | | | | | | + + + + + + + | Specimen | Performing Laboratory | + + + | Blood | [facility] [address] [place], [place] [address], | | | [place] [address] | + + + Blood Culture Set [...] + + | Blood - Blood | [facility] [address] [place], | | | [place] [address] | + + + CT abdomen pelvis with contrast (03/05/2018 2:26 AM) + + + | Specimen | Performing Laboratory | + + + | | [address] [address] | + + + + + | [...] 2018 3:51AM | | Referring Provider Line: [phone] ID: [id number] | + + + + [...] + | Endy, Rad Results In - 03/05/2018 3:51 AM PDT EXAM:CT [...] 2018 | | 3:51AM Referring Provider Line: [phone] ID: [id number] | |Pancreas: Normal. | | [...] | | | | Electronically signed by Lkuas Dean MD on Mar 05 2018 3:51AM Referring Provider Line: [phone] ID: [id number] | + + Lactic acid (03/04/2018 9:55 PM) + + + + | Component | Value | Ref Range | + + + + | LACTIC ACID | 1.7Comment: Testing performed at [facility];888 | 0.4 - 2.0 mmol/L | | | [address];[place] [address] | | + + + + + + + | Specimen | Performing Laboratory | + + + | Blood | [facility] [address] [place] [address] | + + + from Last 3 Months Insurance + +--------+ +------+-------+ + | Payer | Benefi | Subscriber | Type | Phone | Address | | | t Plan | ID | | | | | | / | | | | | | | Group | | | | | + +--------+ +------+-------+ + | PREMERA | PREMER | xxxxxxxxx | | | [place] [address] [address] | | | A BLUE | | | | [place] | | | [place] | | | | [phone] | | | FED | | | | | | | PPO | | | | | + +--------+ +------+-------+ + | MEDICARE | MEDICA | xxxxxxxxxx | | | [address] | | | RE | | | | [place] [address] | | | PART A | | | | | | | ONLY | | | | | + +--------+ +------+-------+ + | MEDICAID | MEDICA | xxxxxxxx | | | [address] | | | ID - | | | | [place], [place] | | | [place] | | | | [phone] | + +--------+ +------+-------+ + + +--------+ [...] | [address] | | | al/[place] | | 1979 | [phone] [place] | | | ca[place] | | | [phone] | [phone] | + +--------+ +--------+ + +
--- OUTSIDE RECORDS SUMMARY | ~2018-03-11 | XMS | Clinical Summary ---
Demographics + + + | Address | [address] | | | [place] [address] | + + + | Home Phone [...] Author | [facility] | | | and [place] | + + + | Organization | [facility] | | | and [place] | + + + | Address | Unknown | + + + | Phone | Unavailable | + + + Support + + +---------+ + | Name | Relationship | Address | Phone | + + +---------+ + | Lyubov Smalls | ECON | Unknown | | + + +---------+ + Care Team Providers + +------+ + | Care Alterations Tailor Name | Role | Phone | + [...] + | Blood Pressure | 145/90 | [id number]/07/[id number] PST | + + + [...] | + + + + + | CERVICAL CANCER | | | | | SCREENING (PAP EVERY | 9 | | | | 3 YEARS 21-64 ) | | | | + + + + + | Vaccine: Influenza | | | | | (Season Ended) | 8 [...] +--------+ +---------+ | MEDICARE | MEDICA | [phone] | Medica | [phone] | | | RE | | [phone] | [phone] | | | | PART A | | | | | | | AND B | | | | | + +--------+ +--------+ +---------+ | BCBS | BCBS | [phone] | PPO | | | | | [...] Self | [birth year] | Home: | [address] | | [place] | al/Fam | | 1979 | [phone] | [place] [id number] | | | caesar | | | [phone] | | + +--------+ +--------+ + +
--- OUTSIDE RECORDS SUMMARY | ~2018-03-11 | XMS | Clinical Summary ---
Demographics + + + | Address | [address] | | | [place] [address] | + + + | Home Phone | | + + + | Preferred Language | Unknown | + + + | Marital Status | | + + + | Protestant Affiliation | Unknown | + + + | Race | Unknown | + + + | Ethnic Group | Unknown | + + + Author + + + | Author | [facility] | | | and Damionana | + + + | Organization | [facility] | | | and Damionana [...] Team Providers + +------+ + | Care Ironer Machine Name | Role | Phone | [...] | 1979 | [phone] | [place] [address] | | | caesar | | | [phone] | | + +--------+ +--------+ + +
--- OUTSIDE RECORDS SUMMARY | ~2018-03-11 | XMS | Encounter Summary ---
Demographics + + + | Address | [address] | | | [place] [address] | + + + | Home Phone | | + + + | Preferred Language | Unknown | + + + | Marital Status | | + + + | Yarsanism Affiliation | Unknown | + + + | Race | Unknown | + + + | Ethnic Group | Unknown | + + + Author + + + | Author | [facility] [employer] | + + + | Organization | [facility] [employer] | + + + | Address [...] Team Providers + +------+ + | Care Sustainability Consultant Name | Role | Phone | [...] + + | 03/04/ | Hospital | [facility] | Irvin Mujica MD | Non-intractable | | 2018 - | Encounter | [facility] | [address] | vomiting with | | | | Surgical [address] | [place], [place] | nausea, unspecified | | 03/09/ | | [place] | [address] | vomiting type | | 2018 | | [address] | [phone] | (Primary Dx); | | | | | | Generalized | | | | | Juan-Anthony, | abdominal pain; | | | | | MD Jose [address] | End-stage renal | | | | | [address] | disease on | | | | | [place] [address] | peritoneal dialysis | | | | | [phone] | ([facility]) | | | | | | | | | | | Kemal Maloney | | | | | | MD Sriram [address] | | | | | | Blvd [place], [place] | | | | | | [address] | | | | | | | | | | | | Cesar Gatica MD | | | | | | [address] | | | | | | [address] | | | | | | [place] [address] | | | | | | [phone] | | | | | | | [...] AGE/SEX: 38 y.o. female ROOM: 406/406-1 PCP: [facility] : 1980 Date of Admission: 03/04/2018 [...] was 9. [facility] to be [...] Mar 05 2018 3:51AM Referring Provider Line: [phone] ID: [id number] PLAN Patient is to be discharged home. She will be followed up tomorrow with her peritoneal dial ysis nurse to continue her outpatient antibiotic therapy. Disposition: Home Condition: Good Code Status: DNR/DNI No discharge procedures on file. Follow up: [facility] [address] [place] [address] In 1 week hospital follow up Medication [...] Refills: 0 Commonly known as: NORVASC ergocalciferol 71924 units capsule Refills: 0 Commonly known as: [...] nephrology recommendations. in this encounter Discharge Instructions Lukas Lynn MD-R2 - 03/09/2018You are going home! [...] | | | | | | (DRISDOL) 91457 | mouth once a week. | | [...] Ramona Oconnor AGE/SEX: 38 y.o. female ROOM: [address] [place] [address] PCP: [facility] : 1980 PATIENT SUMMARY This is [...] vomiting Anemia in ESRD (end-stage renal disease) ([facility]) Active comorbid conditions include: - renal [...] note may be different from the original. [facility] Service: Hospitalist Progress Note Hospital [...] hours. No results for input(s): PHART, PO2ART, UZU6HVL, D4BNVJJN, BEART in the last 168 hours. No [...] Mar 05 2018 3:51AM Referring Provider Line: [phone] ID: [id number] PROBLEM LIST Principal Problem: Abdominal [...] AGE/SEX: 38 y.o. female ROOM: 406/406-1 PCP: [facility] : 1980 PATIENT SUMMARY This is [...] QTC Calculation (Bezet) 507 ms Calculated P Galax 48 degrees Calculated R Galax 71 degrees Calculated T Galax 130 degrees Diagnosis Normal sinus rhythm T [...] Ramona Oconnor AGE/SEX: 38 y.o. female ROOM: [address] [place] [address] PCP: [facility] : 1980 PATIENT SUMMARY This is [...] | VANCOMYCIN,RANDOM | 23.51Comment: Testing performed at [facility]888 | ug/mL | | | Maksim Agarwal;[place] [address] | | + + + + + + + | Specimen | Performing Laboratory | + + + | | [facility] [address] [place] [address] | + + + Renal function panel [...] | | | | 1.210.Testing performed at [facility], [address] | | | | [place] [address] | | | | | | + + + + + + + | Specimen | Performing Laboratory | + + + | Blood | [facility] [address] [place] [address] Blvd. [place], | | | [place] [address] | + + + Renal function panel [...] | | | | 1.210.Testing performed at [facility], [facility] | | | | [place] [address] | | | | | | + + + + + + + | Specimen | Performing Laboratory | + + + | Blood | [facility] [address] [place], [place] [address], | | | [place] [address] | + + + Body fluid cell count (03/07/2018 10:55 AM) + + + + | Component | Value | Ref Range | + + + + | FLUID TYPE | PERITONEAL FLUID | | + + + + | COLOR | COLORLESS | | + + + + | APPEARANCE | CLEAR | | + + + + | RBC'S | <00487 | /mm3 | + + + + [...] CELLS COUNTED | 100Comment: Testing performed at [facility];888 | | | | Maksim Agarwal;[place] [address] | | + + + + + + + | Specimen | Performing Laboratory | + + + | Other - Peritoneal | [address] [address] | | Fluid | | + + [...] + | Body Fluid - Ascites | [facility] [address] [facility] [place], | | Fluid | [place] [address] | + + + Magnesium (03/07/2018 4:53 AM) + + + + | Component | Value | Ref Range | + + + + | MAGNESIUM | 3.0 (H)Comment: Testing performed at [facility], | 1.7 - 2.4 mg/dL | | | [address] [facility] [place] | | | | [address] | | + + + + + + + | Specimen | Performing Laboratory | + + + | | Compute [facility] [address] [place] [address] Blvd. [place], | | | [place] [address] | + + + CBC W/Auto Diff [...] ABS | 0.11 (H)Comment: Testing performed at [facility], | 0.00 - 0.10 K/uL | | | [address] [place] | | | | [address] | | + + + + + + + | Specimen | Performing Laboratory | + + + | | Compute [facility] [address] [place] [address] [address] [place], | | | [place] [address] | + + + Renal function panel [...] | | | | 1.210.Testing performed at [facility], [address] | | | | [place] [address] | | | | | | + + + + + + + | Specimen | Performing Laboratory | + + + | Blood | [facility] [address] [place], | | | [place] [address] | + + + EKG STANDARD 12 [...] + + + + | Calculated P Galax | 48 | degrees | + + + + | Calculated R Galax | 71 | degrees | + + + + | Calculated T Galax | 130 | degrees | + + [...] Laboratory | + + + | | [facility] [address] [place] [address] | + + + Magnesium (03/06/2018 5:25 AM) + + + + | Component | Value | Ref Range | + + + + | MAGNESIUM | 3.2 (H)Comment: Testing performed at [facility], | 1.7 - 2.4 mg/dL | | | [address] [place] | | | | [address] | | + + + + + + + | Specimen | Performing Laboratory | + + + | Blood | [facility] [address] [place] [address] [place], | | | [place] [address] | + + + CBC W/Auto Diff [...] BASOPHILS ABS | 0.08Comment: Testing performed at [facility];888 | 0.00 - 0.10 K/uL | | | Maksim Agarwal;[place] [address] | | + + + + + + + | Specimen | Performing Laboratory | + + + | Blood | [facility] [address] [place] [address] | + + + Renal function panel [...] | | | | 1.210.Testing performed at [facility], [address] | | | | [place] [address] | | | | | | + + + + + + + | Specimen | Performing Laboratory | + + + | Blood | [facility] [address] [facility] [place], | | | [place] [address] | + + + PERITONEAL DIALYSIS (03/05/2018 [...] performed at | NEGATIVE | | | [facility];[address] [place] [address];[place] [address] | | + + + + + + + | Specimen | Performing Laboratory | + + + | Nasopharyngeal - | [address] [address] | | Nares(Nose) | | + + + Phosphorus (03/05/2018 3:32 AM) + + + + | Component | Value | Ref Range | + + + + | PHOSPHORUS | 5.8 (H)Comment: Testing performed at [facility], | 2.3 - 4.8 mg/dL | | | [address] [facility] [place] | | | | [address] | | + + + + + + + | Specimen | Performing Laboratory | + + + | Blood | [facility] [address] [facility] [place], [place] | | [place] [address] | + + + Blood Culture Set [...] + + | Blood - Blood | [facility] [address] [place], | | | [place] [address] | + + + Liver Function Tests [...] | ALT | 10Comment: Testing performed at [facility], [address] | 10 - 65 U/L | | | [place] [address] | | + + + + + + + | Specimen | Performing Laboratory | + + + | Blood | [address] [place], | | | [place] [address] | + + + Comprehensive Metabolic Panel [...] | | | | 1.210.Testing performed at [facility], [address] | | | | [place] [address] | | | | | | + + + + + + + | Specimen | Performing Laboratory | + + + | Blood | [facility] [address] [place] [address] [address] [place], [place] | | [place] [address] | + + + Magnesium (03/05/2018 3:32 AM) + + + + | Component | Value | Ref Range | + + + + | MAGNESIUM | 3.5 (H)Comment: Testing performed at [facility], | 1.7 - 2.4 mg/dL | | | [address] [facility] [place] | | | | [address] | | + + + + + + + | Specimen | Performing Laboratory | + + + | Blood | [address] [place], | | | [place] [address] | + + + CBC W/Auto Diff [...] | | | NORMALComment: Testing performed at [facility], | | | | [address] [place] | | | | [address] | | + + + + + + + | Specimen | Performing Laboratory | + + + | Blood | [facility] [address] [facility] [place], | | | [place] [address] | + + + Blood Culture Set [...] + + | Blood - Blood | [facility] [address] [facility] [address] [place], | | | [place] [address] | + + + CT abdomen pelvis with contrast (03/05/2018 2:26 AM) + + + | Specimen | Performing Laboratory | + + + | | [facility] [address] [facility] [place] [address] | + + + + + | [...] 2018 3:51AM | | Referring Provider Line: [phone] ID: [id number] | + + + + [...] 2018 | | 3:51AM Referring Provider Line: [phone] ID: [id number] | |Pancreas: Normal. | | [...] 05 2018 3:51AM Referring Provider Line: [phone] ID: [id number] | + + Body fluid cell count (03/05/2018 1:00 AM) + + + + | Component | Value | Ref Range | + + + + | FLUID TYPE | PERITONEAL FLUID | | + + + + | COLOR | YELLOW | | + + + + | APPEARANCE | HAZY | | + + + + | RBC'S | <12948 | /mm3 | + + + + [...] CELLS COUNTED | 100Comment: Testing performed at [facility];888 | | | | Maksim Agarwal;[place] [address] | | + + + + + + + | Specimen | Performing Laboratory | + + + | Other - Peritoneal | [facility] [address] [place] [address] | | [place] | | + + [...] + + | Body Fluid - | [facility] [address] [place] [address] Blvd[address] [place], | | Peritoneal Fluid | [place] [address] | + + + Lactic acid (03/04/2018 9:55 PM) + + + + | Component | Value | Ref Range | + + + + | LACTIC ACID | 1.7Comment: Testing performed at [facility];8 | 0.4 - 2.0 mmol/L | | | [facility];[place] [address] | | + + + + + + + | Specimen | Performing Laboratory | + + + | Blood | [facility] [address] [facility] [place] [address] | + + + Comprehensive metabolic panel [...] | | | | 1.210.Testing performed at [facility];[address] [place] [address] | | | | vd;[place] [address] | | | | | | + + + + + + + | Specimen | Performing Laboratory | + + + | Blood | [place] [address] [place] [address] | + + + CBC with differential [...] Testing performed at | | | | [facility];[address] [place] [address];[place] [address] | | + + + + + + + | Specimen | Performing Laboratory | + + + | Blood | [facility] [address] [place] [address] | + + + in this encounter [...] | | | Daily, First dose on [facility] 03/05/18 | | | | | | [...] Daily, First | | | dose on [facility] 03/05/18 at 0900 | | + +---+ | | | + +---+ + +-------+ +-------+---+---+ | famotidine (PEPCID) tablet 20 | Given | | 20 mg | | | | mg 20 mg, Oral, Daily, First | | 8 09:32 | | | | | dose on [facility] 03/05/18 at 0900 | | PDT | [...] | | dose on [facility] 03/05/18 at 1900, Gent | | PDT [...] | | | day), First dose on [facility] 03/05/18 | | | | | | [...] | | | | | | Starting [facility] 03/05/18 at 1213 | | | | [...] PDT | | | | | Starting [facility] 03/05/18 at 0208, | | | | [...] | | | | | Minutes, Once, [facility] 03/09/18 at | | | | | [...] | | | | | Minutes, Once, [facility] 03/05/18 at | | | | | [...] | | | | | | Starting [facility] 03/05/18 at 0144 | | | | [...]
--- OUTSIDE RECORDS SUMMARY | ~2018-03-11 | XMS | Encounter Summary ---
Demographics + + + | Address | [address] | | | [place] [address] | + + + | Home Phone | | + + + | Preferred Language | Unknown | + + + | Marital Status | | + + + | Taoist Affiliation | Unknown | + + + | Race | Unknown | + + + | Ethnic Group | Unknown | + + + Author + + + | Author | [facility] [employer] | + + + | Organization | [facility] [employer] | + + + | Address [...] Team Providers + +------+ + | Care Operations Planner Name | Role | Phone | [...] order by | | | | [place] [address] | | provider- 03/06/18 - | | | | [phone] | | ) | +--------+ + + [...] PM PDTFaxed signed order by provider to [facility] dep[facility] order form. Fax confirmation received. .in this encounter Plan of Treatment Not on fileas of this encounter Visit Diagnoses Not on filein this encounter"
--- OUTSIDE RECORDS SUMMARY | ~2018-03-11 | XMS | Encounter Summary ---
Demographics + + + | Address | [address] | | | [place] [address] | + + + | Home Phone | | + + + | Preferred Language | Unknown | + + + | Marital Status | | + + + | Restorationism Affiliation | Unknown | + + + | Race | Unknown | + + + | Ethnic Group | Unknown | + + + Author + + + | Author | [facility] | + + + | Organization | [email or web address] [employer] | + + + | Address [...] Team Providers + +------+ + | Care Health Actuary Name | Role | Phone | + +------+ + | Aura Saldaña | PCP | | + +------+ + Reason for Visit +--------+ + | Reason | Comments | +--------+ + | Other | January 2018-[facility] Provider Rounding Dialysis Note | +--------+ + Encounter Details +--------+ + + + + | Date | Type | Department | Care Team | Description | +--------+ + + + + | 02/23/ | Documentati | [facility] | Santos Chi MD | Other (January | | 2018 | on Only | Nephrology [address] | 2018-[facility] Provider | | | | [facility] | [address] [place], [place] | Rounding Dialysis | | | | [place], [place] | [address] | Note) | | | | [address] | | | | | | [phone] | | | +--------+ + + + [...]
--- OUTSIDE RECORDS SUMMARY | ~2018-03-11 | XMS | Encounter Summary ---
Demographics + + + | Address | [address] | | | [place] [address] | + + + | Home Phone | | + + + | Preferred Language | Unknown | + + + | Marital Status | | + + + | Jehovah'S Witness Affiliation | Unknown | + + + | Race | Unknown | + + + | Ethnic Group | Unknown | + + + Author + + + | Author | [facility] | + + + | Organization | [facility] [employer] | + + + | Address [...] Providers + +------+ + | Care Manager Power Name | Role | Phone | + +------+ + | Aura Saldaña | PCP | | + +------+ + Reason for Visit +--------+ + | Reason | Comments | +--------+ + | Other | December 2017-[facility] Provider Rounding Dialysis Note | +--------+ + Encounter Details +--------+ + + + + | Date | Type | Department | Care Team | Description | +--------+ + + + + | 01/14/ | Documentati | [facility] | Santos Chi MD | Other (December | | 2018 | on Only | Nephrology [address] | 2018-[facility] Provider | | | | [facility] | [address] [place], [place] | Rounding Dialysis | | | | [place], [place] | [address] | Note) | | | | [address] | | | | | | [phone] | | | +--------+ + + + [...]
--- OUTSIDE RECORDS SUMMARY | ~2018-03-11 | XMS | Clinical Summary ---
Demographics + + + | Address | [address] | | | [place] [address] | + + + | Home Phone | | + + + | Preferred Language | Unknown | + + + | Marital Status | | + + + | Mormon Affiliation | Unknown | + + + | Race | Unknown | + + + | Ethnic Group | Unknown | + + + Author + + + | Author | [facility] | + + + | Organization | [facility] [employer] | + + + | Address [...] Team Providers + +------+ + | Care Toolroom Clerk Name | Role | Phone | [...] | | | Activ | | (DRISDOL) [address] | mouth once a week. | | [...] | 04/3 | Activ | | SA (K-ANUPAM,HOLLY) | mouth daily. | tablet | | [...] | | | MRN: | | | [id number] | | | OM: | | | 406/406-1 | | | PCP: | | | [facility] | | | [...] | | | Line: | | | [phone] | | | 5SITE ID: | | [...] | | up:[facility] | | | wk [place] | | | ClinicPO | | | [address] | | [address] | | | n [place] | | | [phone] | | | [phone] | | [...] | | ergocalcife | | | rol [address] | | | units | | | [...] | VANCOMYCIN,RANDOM | 23.51Comment: Testing performed at [facility];888 | ug/mL | | | Maksim Agarwal;[place] [address] | | + + + + + + + | Specimen | Performing Laboratory | + + + | | [facility] [address] [place] [address] | + + + Renal function panel [...] 1.210.Testing performed at [facility], [address] | | | | [place] [address] | | | | | | + + + + + + + | Specimen | Performing Laboratory | + + + | Blood | [facility] [address] [place], [place] [address], | | | [place] [address] | + + + FLUID CULT W/GRAM [...] + | Body Fluid - Ascites | [facility] [address] [facility] [address] [place], | | Fluid | [place] [address] | + + + Body fluid cell [...] + + + + | RBC'S | <52942 | /mm3 | + + + + [...] CELLS COUNTED | 100Comment: Testing performed at [facility];8 | | | | [facility];[place] [address] | | + + + + + + + | Specimen | Performing Laboratory | + + + | Other - Peritoneal | [facility] [address] [place] [address] | | Fluid | | + + [...] Testing performed at [facility], | 0.00 - 0.10 K/uL | | | [address] [place] | | | | [address] | | + + + + + + + | Specimen | Performing Laboratory | + + + | | [facility] [address] [facility] [place], | | | [place] [address] | + + + Magnesium (03/07/2018 4:53 AM)Only the most recent of 3 results within the time period is included. + + + + | Component | Value | Ref Range | + + + + | MAGNESIUM | 3.0 (H)Comment: Testing performed at [facility], | 1.7 - 2.4 mg/dL | | | [address] [place] [place] | | | | [address] | | + + + + + + + | Specimen | Performing Laboratory | + + + | | [facility] [address] [place], | | | [place] [address] | + + + EKG STANDARD 12 [...] + + + + | Calculated P Bath | 48 | degrees | + + + + | Calculated R Bath | 71 | degrees | + + + + | Calculated T Bath | 130 | degrees | + + [...] Laboratory | + + + | | [facility] [address] [place] [address] | + + + PERITONEAL DIALYSIS (03/05/2018 [...] performed at | NEGATIVE | | | [facility];[address];[place] [address] | | + + + + + + + | Specimen | Performing Laboratory | + + + | Nasopharyngeal - | [facility] [address] [place] [address] | | Nares(Nose) | | + + [...] + + | Blood - Blood | [address] [place], | | | [place] [address] | + + + Phosphorus (03/05/2018 3:32 AM) + + + + | Component | Value | Ref Range | + + + + | PHOSPHORUS | 5.8 (H)Comment: Testing performed at [facility], | 2.3 - 4.8 mg/dL | | | [address] [facility] [place] | | | | [address] | | + + + + + + + | Specimen | Performing Laboratory | + + + | Blood | [facility] [address] [place] [address] [address]vd[address] [place], | | | [place] [address] | + + + Liver Function Tests [...] Testing performed at [facility], [address] | 10 - 65 U/L | | | [place] [address] | | + + + + + + + | Specimen | Performing Laboratory | + + + | Blood | [facility] [address] [place] [address] [place], | | | [place] [address] | + + + Comprehensive Metabolic Panel [...] 1.210.Testing performed at [facility], [facility] | | | | [place] [address] | | | | | | + + + + + + + | Specimen | Performing Laboratory | + + + | Blood | [facility] [address] [place], [place] [address], | | | [place] [address] | + + + Blood Culture Set [...] + + | Blood - Blood | [facility] [address] [facility] [address] [place], | | | [place] [address] | + + + CT abdomen pelvis with contrast (03/05/2018 2:26 AM) + + + | Specimen | Performing Laboratory | + + + | | [address] [address] | + + + + + | [...] 2018 3:51AM | | Referring Provider Line: [phone] ID: [id number] | + + + + [...] 2018 | | 3:51AM Referring Provider Line: [phone] ID: [id number] | |Pancreas: Normal. | | [...] 05 2018 3:51AM Referring Provider Line: [phone] ID: [id number] | + + Lactic acid (03/04/2018 9:55 PM) + + + + | Component | Value | Ref Range | + + + + | LACTIC ACID | 1.7Comment: Testing performed at [facility];888 | 0.4 - 2.0 mmol/L | | | [address] Agarwal;[place] [address] | | + + + + + + + | Specimen | Performing Laboratory | + + + | Blood | [facility] [address] [place] [address] | + + + from Last 3 [...] xxxxxxxxx | | | ANA [address] [address] | | | A BLUE | | | | [place] | | | CROSS | | | | [address] | | | FED | | | | | | | PPO | | | | | + +--------+ +------+-------+ + | MEDICARE | MEDICA | xxxxxxxxxx | | | [address] | | | RE | | | | [place] [address] | | | PART A | | | | | | | ONLY | | | | | + +--------+ +------+-------+ + | MEDICAID | MEDICA | xxxxxxxx | | | [address] | | | ID - | | | | [place], [place] | | | [place] | | | | [address] | + +--------+ +------+-------+ + + +--------+ [...] | caesar | | | [address] | [address] | + +--------+ +--------+ + +
--- OUTSIDE RECORDS SUMMARY | ~2018-03-11 | XMS | Encounter Summary ---
Demographics + + + | Address | [address] | | | [place] [address] | + + + | Home Phone | | + + + | Preferred Language | Unknown | + + + | Marital Status | | + + + | Jainism Affiliation | Unknown | + + + | Race | Unknown | + + + | Ethnic Group | Unknown | + + + Author + + + | Author | [facility] [employer] | + + + | Organization | [facility] [employer] | + + + | Address [...] Team Providers + +------+ + | Care Can Filling And Closing Machine Tender Name | Role | Phone | + +------+ + | Aura Saldaña | PCP | | + +------+ + Reason for Visit +--------+ + | Reason | Comments | +--------+ + | Other | February 2018-[facility] Provider Rounding Dialysis Note | +--------+ + Encounter Details +--------+ + + + + | Date | Type | Department | Care Team | Description | +--------+ + + + + | 03/10/ | Documentati | [facility] | Santos Chi MD | Other (February | | 2018 | on Only | Nephrology [address] | 2018-[facility] Provider | | | | [facility] | [address] [place], [place] | Rounding Dialysis | | | | [place], [place] | [address] | Note) | | | | [address] | | | | | | [phone] | | | +--------+ + + + [...]
--- OUTSIDE RECORDS SUMMARY | ~2018-03-11 | XMS | Encounter Summary ---
Demographics + + + | Address | [address] | | | [place] [address] | + + + | Home Phone [...] + | Author | [facility] [employer] | + + + | Organization | [facility] [employer] | + + + | Address [...] Team Providers + +------+ + | Care Oven Worker Name | Role | Phone | [...] [address] | [address] | 2018-[facility] Provider | | | | [facility] | [address] [place], [place] | Rounding Dialysis | | | | [place], [place] | [address] | Note) | | | | [address] | | | | | | [phone] | | | +--------+ + + + [...]
--- OUTSIDE RECORDS SUMMARY | ~2018-03-11 | XMS | Encounter Summary ---
Demographics + + + | Address | [address] | | | [place] [address] | + + + | Home Phone | | + + + | Preferred Language | Unknown | + + + | Marital Status | | + + + | Yazdanism Affiliation | Unknown | + + + | Race | Unknown | + + + | Ethnic Group | Unknown | + + + Author + + + | Author | [facility] [employer] | + + + | Organization | [facility] [employer] | + + + | Address [...] Team Providers + +------+ + | Care Canal Boat Operator Name | Role | Phone | [...] + + | 02/23/ | Documentati | [facility] | Santos Chi MD | Other (January | | 2018 | on Only | Nephrology [address] | [address] | 2018-[facility] Provider | | | | [facility] | [address] [place], [place] | Rounding Dialysis | | | | [place], [place] | [address] | Note) | | | | [address] | | | | | | [phone] | | | +--------+ + + + [...]
--- OUTSIDE RECORDS SUMMARY | ~2018-03-11 | XMS | Encounter Summary ---
Demographics + + + | Address | [address] | | | [place] [address] | + + + | Home Phone | | + + + | Preferred Language | Unknown | + + + | Marital Status | | + + + | Yarsanism Affiliation | Unknown | + + + | Race | Unknown | + + + | Ethnic Group | Unknown | + + + Author + + + | Author | [facility] [employer] | + + + | Organization | [facility] [employer] | + + + | Address [...] Team Providers + +------+ + | Care Community Health Worker Name | Role | Phone | [...] + + | 12/15/ | Documentati | [facility] | Santos Chi MD | Other (November | | 2017 | on Only | Nephrology [address] | [address] | 2018-[facility] Provider | | | | [facility] | [address] [place], [place] | Rounding Dialysis | | | | [place], [place] | [address] | Note) | | | | [address] | | | | | | [phone] | | | +--------+ + + + [...]
--- OUTSIDE RECORDS SUMMARY | ~2018-03-11 | XMS | Encounter Summary ---
Demographics + + + | Address | [address] | | | [place] [address] | + + + | Home Phone | | + + + | Preferred Language | Unknown | + + + | Marital Status | | + + + | Advent Affiliation | Unknown | + + + | Race | Unknown | + + + | Ethnic Group | Unknown | + + + Author + + + | Author | [facility] [employer] | + + + | Organization | [facility] [employer] | + + + | Address [...] Team Providers + +------+ + | Care Marble Polisher Name | Role | Phone | + [...] + + | 01/14/ | Documentati | [facility] | Santos Chi MD | Other (December | | 2018 | on Only | Nephrology [address] | [address] | 2018-[facility] Provider | | | | [facility] | [address] [place], [place] | Rounding Dialysis | | | | [place], [place] | [address] | Note) | | | | [address] | | | | | | [phone] | | | +--------+ + + + [...]
[~2018-03-11 13:37] MED LIST changes: +ATIVAN1 MG; +ONDANSETRON HCL8 MG; +XANAX0.5 MG
[2018-03-11] MEDS ORDERED: ZOFRAN ODT4 MG PO (16:32)
== END 2018-03-11 17:15 | disposition home or self-care (01) ==
LOC: ED 13:37
DX: T82.7XXA Infection and inflammatory reaction due to other cardiac and vascular devices, implants and grafts, initial encounter (principal); K65.9 Peritonitis, unspecified; I10 Essential (primary) hypertension; Z99.2 Dependence on renal dialysis; Z79.899 Other long term (current) drug therapy
CPT/HCPCS: 74176; 80053; 83605; 83690; 85025; 96361; 96374; 96375; 96376; 99284; J2060; J2405; J2550; J3010; J7030

== ENCOUNTER 2018-12-24 15:49 | Emergency (ER) | payer BC, OTHER ==
[~2018-12-24] VITALS: Ht 165.1 cm; Wt 82.2 kg
[~2018-12-24 15:49] MED LIST changes: +ZOFRAN ODT4 MG PO
--- OUTSIDE RECORDS SUMMARY | 2018-12-24 15:52 | XMS ---
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 - Has Care Guidelines - PDMP - [facility] - 2 Visits in 30 Days CARE PROVIDERS ANGELITA SAMPSON [facility] 06/08/2018-Current PHONE: Unknown Vicente has no Care Guidelines for this patient. Care History Medical/Surgical 06/10/[address] [facility] - Patient has not followed up with PCP in regards to ED visits. Last time patient was seen by PCP was 06/10/17. - Patient has done multiple no shows to [facility]. - Patient has been seen by [facility] infectious disease for follow up by Dr Cathie Ochoa. Care Recommendation: This patient has had 5 or more Emergency Department visits in the last 12 months.\T\nbsp; Patient requires education on the scope and purpose of the ED as an acute care provider not a Primary Care Provider and should not be utilized for chronic conditions.\T\nbsp; These are guidelines and the provider should exercise clinical judgment when providing care. [facility] TOTAL 7 NOTE: Visits indicate total known visits. ED/UCC VISIT TRACKING (12 MO.) 12/24/2018 15:49 VIJAY Khan TYPE: Emergency COMPLAINT: - POSS DEHYDRATION 12/07/2018 12:[facility] DIAGNOSES: - Spontaneous bacterial peritonitis - Abdominal Pain - Chest Pain - Bandemia - Dependence on renal dialysis - End stage renal disease 06/07/2018 14:25 VIJAY Khan TYPE: Emergency COMPLAINT: - ANXIETY DIAGNOSES: - Peritonitis, unspecified - Panic disorder [episodic paroxysmal anxiety] - Chronic kidney disease, unspecified - Dependence on renal dialysis 06/04/2018 23[facility]12 [facility] TYPE: Emergency DIAGNOSES: - Dependence on renal dialysis - Flank Pain - Unspecified abdominal pain - Patient's noncompliance with other medical treatment and regimen - End stage renal disease - Noninflammatory disorder of ovary, fallopian tube and broad ligament, unspecified 03/16/2018 16:20 [facility] [place] [facility] TYPE: Emergency DIAGNOSES: - Chronic kidney disease, unspecified - Hypotension, unspecified - abdominal pain - Unspecified abdominal pain 03/11/2018 13:37 VIJAY Khan TYPE: Emergency COMPLAINT: - VOMITING DIAGNOSES: - Unspecified abdominal pain - Peritonitis, unspecified - Infection and inflammatory reaction due to other cardiac and vascular devices, implants and grafts, initial encounter - Dependence on renal dialysis - Other mcc (current) drug therapy - Essential (primary) hypertension 03/04/2018 21:20 [facility] Jairo JI TYPE: Emergency DIAGNOSES: - Emesis - Abdominal Pain INPATIENT VISIT TRACKING (12 MO.) 12/07/2018 12:34 [facility]: General Medicine DIAGNOSES: - End stage renal disease - Bandemia - Spontaneous bacterial peritonitis - Dependence on renal dialysis - Peritonitis, unspecified - Infection and inflammatory reaction due to peritoneal dialysis catheter, subsequent encounter - Anemia in chronic kidney disease 06/07/2018 22:41 [facility] TYPE: General Medicine DIAGNOSES: - End stage renal disease - Bacterial peritonitis - Dependence on renal dialysis 03/16/2018 16:20 [facility] [place] TYPE: General Medicine DIAGNOSES: - Chronic kidney disease, unspecified - Hypotension, unspecified - Dependence on renal dialysis - Noninflammatory disorder of ovary, fallopian tube and broad ligament, unspecified - End stage renal disease - Unspecified abdominal pain 03/04/2018 21:20 [facility] [place] [facility] TYPE: Recovery DIAGNOSES: - Dependence on renal dialysis - Generalized abdominal pain - Emesis - Nausea with vomiting, unspecified - Abdominal Pain - End stage renal disease [email or web address]
[2018-12-24] MEDS ORDERED: CLONAZEPAM0.5 MG PO (15:58)
[2018-12-24] MEDS ORDERED: FLAGYL500 MG PO (15:59)
[2018-12-24] MEDS ORDERED: CEFDINIR300 MG PO (16:00)
[2018-12-24] MEDS ORDERED: TORSEMIDE20 MG PO (16:01)
[2018-12-24] MEDS ORDERED: OMEPRAZOLE20 MG PO (16:01)
[2018-12-24] MEDS ORDERED: XANAX XR0.5 MG PO (16:02)
== END 2018-12-24 21:40 | disposition short-term general hospital (02) ==
LOC: ED 15:49
DX: R10.12 Left upper quadrant pain (principal); R11.2 Nausea with vomiting, unspecified; I13.11 Hypertensive heart and chronic kidney disease without heart failure, with stage 5 chronic kidney disease, or end stage renal disease; N18.6 End stage renal disease; Z99.2 Dependence on renal dialysis; Z79.899 Other long term (current) drug therapy
CPT/HCPCS: 74176; 74177; 76830; 76856; 80053; 83690; 84703; 85025; 96361; 99284-25; J1170; J2270; J2405; J2550; J7040; Q9967

== ENCOUNTER 2018-12-31 14:15 | Emergency (ER) | payer BC, OTHER ==
[~2018-12-31] VITALS: Ht 165.1 cm; Wt 82.2 kg
[~2018-12-31 14:15] MED LIST changes: +CEFDINIR300 MG PO; +CLONAZEPAM0.5 MG PO; +FLAGYL500 MG PO; +XANAX XR0.5 MG PO
--- OUTSIDE RECORDS SUMMARY | 2018-12-31 14:18 | XMS ---
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 Care History Medical/Surgical 06/10/2018 [facility] - Patient has not followed up with PCP in regards to ED visits. Last time patient was seen by PCP was 06/10/17. - Patient has done multiple no shows to [facility]. - Patient has [facility] infectious disease for follow up by [...] care. E.D. VISIT COUNT (12 MO.) 4 [facility] 4 VIJAY Graff TOTAL 8 NOTE: Visits indicate total known visits. 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 - Left upper quadrant pain - Dependence on renal dialysis 12/07/2018 12:34 [facility] TYPE: Emergency DIAGNOSES: - Spontaneous bacterial peritonitis - Abdominal Pain - Chest Pain - Bandemia - Dependence on renal dialysis - End stage renal disease 06/07/2018 14:25 VIJAY Khan TYPE: Emergency COMPLAINT: - ANXIETY DIAGNOSES: - Peritonitis, unspecified - Panic disorder [episodic paroxysmal anxiety] - Chronic kidney disease, unspecified - Dependence on renal dialysis 06/04/2018 23:12 [facility] TYPE: Emergency DIAGNOSES: - Dependence on renal dialysis - Flank Pain - Unspecified abdominal pain - Patient's noncompliance with other medical treatment and regimen - End stage renal disease - Noninflammatory disorder of ovary, fallopian tube and broad ligament, unspecified 03/16/2018 16[facility]: Emergency DIAGNOSES: - Chronic kidney [...] therapy - Essential (primary) hypertension 03/04/2018 21:20 [facility]: [facility] DIAGNOSES: - Emesis - Abdominal Pain INPATIENT VISIT TRACKING (12 MO.) 12/24/2018 23:21 [facility] TYPE: General Medicine DIAGNOSES: - End stage renal disease - Unspecified abdominal pain - Dependence on renal dialysis 12/07/2018 12:34 [facility] [place] TYPE: General Medicine DIAGNOSES: - End stage renal disease - Bandemia - Spontaneous bacterial peritonitis - Dependence on renal dialysis - Peritonitis, unspecified - Infection and inflammatory reaction due to peritoneal dialysis catheter, subsequent encounter - Anemia in chronic kidney disease 06/07/2018 22:41 [facility] TYPE: General Medicine DIAGNOSES: - End stage renal disease - Bacterial peritonitis - Dependence on renal dialysis 03/16/2018 16:20 [facility] TYPE: General Medicine DIAGNOSES: - Chronic kidney disease, unspecified - Hypotension, unspecified - Dependence on renal dialysis - Noninflammatory disorder of ovary, fallopian tube and broad ligament, unspecified - End stage renal disease - Unspecified abdominal pain 03/04/2018 21:20 [facility] DIAGNOSES: - Dependence on renal dialysis - Generalized abdominal pain - Emesis - Nausea with vomiting, unspecified - Abdominal Pain - End stage renal disease [id number]
[2018-12-31] MEDS ORDERED: TRAZODONE HCL50 MG PO (19:08)
== END 2018-12-31 19:10 | disposition home or self-care (01) ==
LOC: ED 14:15
DX: F41.9 Anxiety disorder, unspecified (principal); Z99.2 Dependence on renal dialysis; I10 Essential (primary) hypertension; Z79.899 Other long term (current) drug therapy
CPT/HCPCS: 96361; 96374; 99283-25; J1200; J1630; J1885; J7030

== ENCOUNTER 2019-01-04 14:15 | Emergency (ER) | payer BC, OTHER ==
[~2019-01-04] VITALS: Ht 165.1 cm; Wt 82.2 kg
[~2019-01-04 14:15] MED LIST changes: +TRAZODONE HCL50 MG PO
--- OUTSIDE RECORDS SUMMARY | 2019-01-04 14:18 | XMS ---
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 Care History Medical/Surgical 06/10/2018 [facility] - Patient has not followed up with PCP in regards to ED visits. Last time patient was seen by PCP was 06/10/17. - Patient has done multiple no shows to [facility]. - Patient has been seen by [facility] infectious disease for follow up by Dr [...] care. E.D. VISIT COUNT (12 MO.) 4 [facility] 5 VIJAY Graff TOTAL 9 NOTE: Visits indicate total known visits. ED/UCC VISIT TRACKING (12 MO.) 01/04/2019 14:16 VIJAY [place] TYPE: Emergency COMPLAINT: - DEHYDRATION/CONSTIPATION 12/31/2018 14:15 VIJAY [place] [place] TYPE: Emergency COMPLAINT: - RESTLESS,DEHYDRATION DIAGNOSES: - Other half-way (current) drug therapy - Anxiety disorder, unspecified - Dependence on renal dialysis - Essential (primary) hypertension 12/24/2018 15:49 VIJAY [place] TYPE: Emergency COMPLAINT: - POSS DEHYDRATION DIAGNOSES: - Hypertensive heart and chronic kidney disease without heart failure, with stage 5 chronic kidney disease, or end stage renal disease - End stage renal disease - Nausea with vomiting, unspecified - 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 - Left upper quadrant pain - Dependence on renal dialysis 12/07/2018 12:34 [facility] TYPE: Emergency DIAGNOSES: - Spontaneous bacterial peritonitis - Abdominal Pain - Chest Pain - Bandemia - Dependence on renal dialysis - End stage renal disease 06/07/2018 14:25 VIJAY Khan TYPE: Emergency COMPLAINT: - ANXIETY DIAGNOSES: - Peritonitis, unspecified - Panic disorder [episodic paroxysmal anxiety] - Chronic kidney disease, unspecified - Dependence on renal dialysis 06/04/2018 23:12 [facility] TYPE: Emergency DIAGNOSES: - Dependence on renal dialysis - Flank Pain - Unspecified abdominal pain - Patient's noncompliance with other medical treatment and regimen - End stage renal disease - Noninflammatory disorder of ovary, fallopian tube and broad ligament, unspecified 03/16/2018 16:20 [facility] TYPE: Emergency DIAGNOSES: - Chronic kidney disease, unspecified - Hypotension, unspecified - abdominal pain - Unspecified abdominal pain 03/11/2018 13:37 VIJAY Khan TYPE: Emergency COMPLAINT: - VOMITING DIAGNOSES: - Unspecified abdominal pain - Peritonitis, unspecified - Infection and inflammatory reaction due to other cardiac and vascular devices, implants and grafts, initial encounter - Dependence on renal dialysis - 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 - Essential (primary) hypertension 03/04/2018 21:20 [facility] TYPE: Emergency DIAGNOSES: - Emesis - Abdominal Pain INPATIENT VISIT TRACKING (12 MO.) 12/24/2018 23[facility]21 [facility] TYPE: General Medicine DIAGNOSES: - End stage renal disease - Unspecified abdominal pain - Dependence on renal dialysis 12/07/2018 12:34 [facility] TYPE: General Medicine DIAGNOSES: - End stage renal disease - Bandemia - Spontaneous bacterial peritonitis - Dependence on renal dialysis - Peritonitis, unspecified - Infection and inflammatory reaction due to peritoneal dialysis catheter, subsequent encounter - Anemia in chronic kidney disease 06/07/2018 22:41 [facility]: General Medicine DIAGNOSES: - End stage renal disease - Bacterial peritonitis - Dependence on renal dialysis 03/16/2018 16:20 [facility] Jairo JI TYPE: General Medicine DIAGNOSES: - Chronic kidney disease, unspecified - Hypotension, unspecified - Dependence on renal dialysis - Noninflammatory disorder of ovary, fallopian tube and broad ligament, unspecified - End stage renal disease - Unspecified abdominal pain 03/04/2018 21:20 [facility]: [facility] DIAGNOSES: - Dependence on renal dialysis - Generalized abdominal pain - Emesis - Nausea with vomiting, unspecified - Abdominal Pain - End stage renal disease [email or web address]
[2019-01-04] MEDS ORDERED: TRAZODONE HCL100 MG PO (15:37)
[2019-01-04] MEDS ORDERED: ZOFRAN4 MG PO (15:38)
== END 2019-01-04 22:52 | disposition short-term general hospital (02) ==
LOC: ED 14:15
DX: K57.32 Diverticulitis of large intestine without perforation or abscess without bleeding (principal); I10 Essential (primary) hypertension
CPT/HCPCS: 36415; 74176; 80053; 83690; 85025; 96361; 96365; 96375; 96376; 99285-25; J0744; J2060; J2270; J2405; J2543; J2765; J7030; J7040; J7060

== ENCOUNTER 2019-01-28 20:41 | Emergency (ER) | payer BC, OTHER ==
[~2019-01-28] VITALS: Ht 157.5 cm; Wt 82.2 kg
--- OUTSIDE RECORDS SUMMARY | ~2019-01-28 | XMS | Encounter Summary ---
Demographics + + + | Address | [address] | | | [place] [address] | + + + | Home Phone | | + + + | Preferred Language | Unknown | + + + | Marital Status | | + + + | Jain Affiliation | Unknown | + + + | Race | Unknown | + + + | Ethnic Group | Unknown | + + + Author + + + | Author | [facility] [employer] | + + + | Organization | [facility] [employer] | + + + | Address | Unknown | + + + | Phone | Unavailable | + + + Support + + + + + | Name | Relationship | Address | Phone | + + + + + | Lyubov Smalls | [address] | [place] | | | | | [phone] | | + + + + + | Lydia Palm | ECON | [place] | | | | | [phone] | | + + + + + | Jose C Oconnor | ECON | [address] | | | | | [place] | | | | | [phone] | | + + + + + Care Team Providers + +------+ + | Care Assembler Body Name | Role | Phone | + +------+ + | Juan F Whitley MD | PCP | | + +------+ + Reason for Visit + + + | Reason | Comments | + + + | Abdominal Pain | pt's spouse states "she might be starting a peritoneal | | | infection". started yesterday, worse throughout the night". | + + + | Chest Pain | from "dry heaves" | + + + Auth/Cert +--------+--------+ + + + + | Status | Reason | Specialty | Diagnoses / | Referred By | Referred To | | | | | Procedures | Contact | Contact | +--------+--------+ + + + + | | | | Diagnoses | | | | | | | Spontaneous | | | | | | | bacterial | | | | | | | peritonitis | | | | | | | ([facility]) | | | | | | | Bandemia | | | | | | | ESRD on | | | | | | | peritoneal | | | | | | | dialysis | | | | | | | ([facility]) | | | +--------+--------+ + + + + Encounter Details +--------+ + + + + | Date | Type | Department | Care Team | Description | +--------+ + + + + | 12/07/ | Hospital | [facility] | Fito Crespo, | Spontaneous | | 2019 - | Encounter | [facility] | MD Ebony PETERS | bacterial | | | | [facility] | EMERGENCY DEPARTMENT | peritonitis (HCC) | | 12/10/ | | [address] | [place] [address] | (Primary Dx); | | 2018 | | [place] [address] | [phone] | Bandemia; ESRD on | | | | [phone] | | peritoneal dialysis | | | | | Ginger Bass | ([facility]); Anemia in | | | | | [place], [place] [address] | ESRD (end-stage | | | | | [address] | renal disease) | | | | | [place] [address] | ([facility]); Peritonitis | | | | | [phone] | due to infected | | | | | | peritoneal dialysis | | | | | Hilda Edwards DO | catheter, subsequent | | | | | [address] | encounter ([facility]) | | | | | [place] [address] | | | | | | [phone] | | | | | | | [...] + + + | Blood Pressure | 118/83 | 12/10/2018 12:45 PM PST | + + + + | Pulse | 78 | 12/10/2018 12:45 PM PST | + + + + | Temperature | 36.9 C (98.4 F) | 12/10/2018 12:45 PM PST | + + + + | Respiratory Rate | 16 | 12/10/2018 12:45 PM PST | + + + + | Oxygen Saturation | 97% | 12/10/2018 12:45 PM PST | + + + + | Inhaled Oxygen | - | - | | Concentration | | | + + + + | Weight | 81.1 kg (178 lb 12.7 | 12/09/2018 3:08 AM PST | | | oz) | | + + + + | Height | 157.5 cm (5' 2") | 12/09/2018 2:14 PM PST | + + + + | Body Mass Index | 32.7 | 12/09/2018 3:08 AM PST | + + + + in this encounter Discharge Summaries Hilda Edwards DO - 12/10/2018 7:52 AM PSTFormatting of this note may be different from the original. Patient: Ramona Oconnor : 1980 Date of Admission: 12/07/2018 Date of Discharge: 12/10/2018 Treatment Team: Consulting Physician: Santos Rey MD Consulting Physician: Lois Richmond MD Admitting Provider: Ginger Bass MD Discharging Provider: Hilda Edwards DO Discharge Diagnoses: Principal Problem: Peritonitis due to infected peritoneal dialysis catheter (HCC) Active Problems: Abdominal pain ESRD on peritoneal dialysis Leukocytosis Resolved Problems: Peritonitis (HCC) Procedures Performed: Chief Complaint: Abdominal Pain (pt's spouse states "she might be starting a peritoneal infection". started yesterday, worse throughout the night".) and Chest Pain (from "dry heaves") Hospital Course: Ramona Oconnor is a 38 y.o. female who was admitted on 12/07/2018 with Culture negative PD associated peritonitis. The patient is a 38 y.o.femalewith significant past medical history of ESRD on PD and h ypertension who presented to the ED with 4 day history of abdominal pain, nausea and vomitin g. The patient complains of dry heaving and cramping abdominal pain, ongoing since the pas t 4 days. She has not been able to eat anything for the past 2 days. Labs notable for le ukocytosis to 26. PD catheter fluid was sent for analysis and showed cell count >100. She wa s de-escalated to cefoxitin and ultimately discharged home on cefdinir and metronidazole. Culture negative PD associated peritonitis - Discussed with Dr. Rey, for PD any cell count >100 is considered positive, patient's PD fluid came back with 151 WBCs/mm3 so will continue abx - ID following, s/p dose of zosyn in ED, de-escalated to cefoxitan, discharged home on cefd inir and metronidazole - reglan works well for pt, okay to use, discontinued phenergan Discharge Exam and Data: Vital Signs: BP 115/68 | Pulse 82 | Temp 98.8 F (37.1 C) (Oral) | Resp 16 | Ht 1.575 m (5' 2") | Wt 81.1 kg (178 lb 12.7 oz) | SpO2 97% | BMI 32.70 kg/m Constitutional: She is oriented to person, [...] and affect. Recent Labs Recent Labs Lab 12/09/18 0548 WBC 11.41* HGB 10.2* HCT 30.3* PLT 307 Recent Labs Lab 12/09/18 0548 NA 139 K 3.6 CL 98* CO2 29 BUN 32* CREATININE 13.6* Recent Labs Lab 12/07/18 1530 INR 0.[address] Abdomen Pelvis Without Contrast Result Date: 12/07/2018 1. The intrinsically complex and/or dense 4.5 cm mass arising from the right ovary or adne xa is stable but could be a source for ongoing symptoms 2. Stable renal atrophy and likely peritoneal dialysis catheter, without adjacent fluid c ollection or hemorrhage along the course of the catheter 3. No extraluminal lesion, dilatation or obstruction but non masslike wall thickening of t he proximal colon is demonstrated. No high-grade adjacent inflammatory changes or fluid greg ection. Still, low-grade proximal colitis is possible, and there is diverticulosis Signed by: Santos Gil Sign Date/Time: 12/07/2018 4:56 PM Echo Cardiac Adult Complete Result Date: 12/08/2018 1. Overall left ventricular systolic function is normal with, an EF between 60 - 65 %. 2. There is mild concentric left ventricular hypertrophy. 3. No regional wall motion abnormalities. 4. The right ventricle is normal in size and function. 5. The left atrial size is normal. 6. There is no evidence of aortic stenosis. 7. There is trace mitral regurgitation. 8. The poor TR signal prevents accurate estimation of pulmonary pressures. 9. There is no pericardial effusion. No discharge procedures on file. Outstanding Issues: None. Discharge Information: [place]: [place] [address] [place] [id number] Santos Rey MD [facility] Yahir Quinteros [address] [address] Medication List START taking these medications cefdinir 300 MG capsule QTY: 9 capsule Refills: 0 Commonly known as: OMNICEF Take 1 capsule by mouth daily. Start taking on: 12/11/2018 metoclopramide 5 MG tablet QTY: 10 tablet Refills: 0 Commonly known as: REGLAN Take 1 tablet by mouth every 8 (eight) hours as needed for Nausea for up to 10 days. metroNIDAZOLE 500 MG tablet QTY: 19 tablet Refills: 0 Commonly known as: FLAGYL Take 1 tablet by mouth every 12 (twelve) hours. CONTINUE taking these medications ALPRAZolam 0.5 MG tablet Refills: 0 Commonly known as: XANAX amLODIPine 2.5 MG tablet Refills: 0 Commonly known as: NORVASC clonazePAM 0.5 MG tablet Refills: 0 Commonly known as: KlonoPIN ergocalciferol 27918 units capsule Refills: 0 Commonly known as: DRISDOL gentamicin 0.1 % ointment QTY: 15 g Refills: 1 Commonly known as: GARAMYCIN Apply topically 3 (three) times daily. HYDROcodone-acetaminophen 5-325 MG per tablet QTY: 10 tablet Refills: 0 Commonly known as: NORCO Take 1 tablet by mouth every 4 (four) hours as needed. LORazepam 1 MG tablet Refills: 0 Commonly known as: ATIVAN ondansetron 8 MG tablet QTY: 30 tablet Refills: 11 Commonly known as: ZOFRAN Take 1 tablet by mouth every 8 (eight) hours as needed for Nausea. potassium chloride SA 20 MEQ tablet QTY: 30 tablet Refills: 3 Commonly known as: K-DUR,KLOR-CON Take 1 tablet by mouth daily. sevelamer 800 MG tablet QTY: 180 tablet Refills: 1 Commonly known as: RENVELA Take 2 tablets by mouth 3 (three) times daily with meals. zolpidem 5 MG tablet QTY: 10 tablet Refills: 0 Commonly known as: AMBIEN Take 1 tablet by mouth nightly as needed for Sleep (may repeat once in 1 hr if initial dose not effective). You might also be taking other medications not listed above. If you have questions about an y of your other medications, talk to the person who prescribed them or your Primary Care Pro vider. STOP taking these medications promethazine 25 MG tablet Commonly known as: PHENERGAN Where to Get Your Medications You can get these medications from any pharmacy Bring a paper prescription for each of these medications cefdinir 300 MG capsule metoclopramide 5 MG tablet metroNIDAZOLE 500 MG tablet Disposition: Home Condition: Fair Code Status: Full Code Discharge took 35 minutes, to include final examination, discussion of admission, and prepa ration of prescriptions, instructions for on-going care, follow-up and documentation of disc harge summary. Hilda Edwards 12:18 PM in this encounter Discharge Instructions The following attachments cannot be sent through Care Everywhere.Cefdinir capsules (Guyanese )Metoclopramide tablets (Guyanese)Metronidazole tablets or capsules (Guyanese)in this encounte r Medications at Time of Discharge + + [...] tablet by | 10 | 0 | 05/10/20 | | | HYDROcodone-acetamin | mouth every [...] tablet by | 10 | 0 | //20 | | | 5 MG tablet | [...] | | | | | | (DRISDOL) [address] | mouth once a week. | | | | | | UNITS capsule | | | | | | + + +---------+---------+ + + | gentamicin | Apply topically 3 | 15 g | 1 | 01/25/ | | | (GARAMYCIN) 0.1 % | [...] +---------+---------+ + + | sevelamer | Take 2 tablets by | 180 | 1 | 01/26/20 | | | (RENVELA) 800 MG | mouth 3 (three) | tablet | | 17 | | | tablet | times daily with | | | | | | [...] | + + +---------+---------+ + + | metoclopramide | Take 1 tablet by | 10 | 0 | 12/10/19 | | | (REGLAN) 5 MG tablet | mouth every 8 | tablet | | 19 | 9 | | | (eight) hours as | | | | | | | needed for Nausea | | | | | | | for up to 10 days. | | | | | + + [...] + as of this encounter Progress Notes Hilda Edwards DO - 12/09/2018 4:20 PM PSTFormatting of this note may be different from the original. [facility] Service: Hospitalist Progress Note Hospital Day: LOS: 2 days Post-Op Day: * No surgery found * SUBJECTIVE Patient Summary: The patient is a 38 y.o. female with significant past medical history of End-stage renal disease, on peritoneal dialysis, hypertension, presented to the ED with 4 day history of abdominal pain, nausea and vomiting. The patient complains of dry heaving an d cramping abdominal pain, ongoing since the past 4 days. She has not been able to eat anyt lalit for the past 2 days. She also complains of pleuritic chest pain, which comes on with d ry heaving, but denies any shortness of breath. The patient rates the pain 10/10 when she p resented to the emergency department and then after she received morphine, her pain has subs ided. She also received a dose of Zosyn for possible peritonitis and Nephrology was consult ed. Peritoneal fluid has been drawn and fluid studies are pending. The patient is being ad mitted for suspected peritonitis. Events Overnight: - Abdominal pain continues to resolve - Discussed case w ID, continue current abx, will de-escalate tomorrow on discharge - Nephrology following for PD - VSS Tmax 99F, HR 60s-80s, RR 18, 99% RA - Leukocytosis improving Scheduled Medications amLODIPine 2.5 mg Oral Nightly cefOXitin 1 g Intravenous Q24H ergocalciferol 50,000 Units Oral Weekly heparin (porcine) 5000 unit/0.5mL 5,000 Units Subcutaneous 2 times per day sevelamer 1,600 mg Oral TID WC Continuous Infusions lactated ringers 75 mL/hr at 12/09/18 0241 PRN Medications acetaminophen OR acetaminophen, calcium carbonate, HYDROcodone-acetaminophen, HYDROcodo ne-acetaminophen, LORazepam, metoclopramide, polyethylene glycol, zolpidem OBJECTIVE Vital Signs: BP 140/82 (BP Location: Left upper arm) | Pulse 67 | Temp 99 F (37.2 C) (Oral) | Res p 18 | Ht 1.575 m (5' 2") | Wt 81.1 kg (178 lb 12.7 oz) | SpO2 99% | BMI 32.70 kg/m Constitutional: She is oriented to person, place, and time. She appears well-developed and well-nourished. HENT: Head: Normocephalic and atraumatic. Eyes: Pupils are equal, round, and reactive to light. EOM are normal. Neck: Normal range of motion. Neck supple. Cardiovascular: Regular rate, normal rhythm. No murmurs Pulmonary/Chest: Effort normal and breath sounds normal. No respiratory distress. She has n o wheezes. Abdominal: Soft. Bowel sounds are normal. No tenderness, no guarding/rebound. PD catheter p resent. Musculoskeletal: Normal range of motion. She exhibits no edema. Neurological: She is alert and oriented to person, place, and time. No cranial nerve defici t. Skin: Skin is warm and dry. No erythema. Psychiatric: She has a normal mood and affect. DATA CBC: Lab Results Component Value Date WBC 11.41 (H) 12/09/2018 RBC 3.48 (L) 12/09/2018 HGB 10.2 (L) 12/09/2018 HCT 30.3 (L) 12/09/2018 MCV 87.1 12/09/2018 MCH 29.3 12/09/2018 MCHC 33.7 12/09/2018 RDW 43.8 12/09/2018 PLT 307 12/09/2018 MPV 8.1 12/09/2018 DIFFTYPE MANUAL 12/09/2018 CMP: Lab Results Component Value Date NA 139 12/09/2018 K 3.6 12/09/2018 CL 98 (L) 12/09/2018 CO2 29 12/09/2018 ANIONGAP 16 12/09/2018 GLUF 93 12/09/2018 BUN 32 (H) 12/09/2018 CREATININE 13.6 (H) 12/09/2018 BCR 2 12/09/2018 CA 8.3 (L) 12/09/2018 CA 9.0 09/07/2017 PROT 8.7 (H) 12/07/2018 ALB 4.9 12/07/2018 GLOB 3.8 12/07/2018 BILITOT 0.2 12/07/2018 ALP 126 (H) 12/07/2018 AST 15 12/07/2018 ALT 11 12/07/2018 EGFR 3 (L) 12/09/2018 PROBLEM LIST Principal Problem: Peritonitis due to infected peritoneal dialysis catheter (HCC) Active Problems: Abdominal pain ESRD on peritoneal dialysis Leukocytosis ASSESSMENT & PLAN Culture negative PD associated peritonitis - Discussed with Dr. Rey, for PD any cell count >100 is considered positive, patient's PD fluid came back with 151 WBCs/mm3 so will continue abx - ID following, de-escalate to cefoxitan Hypertension. Will continue Norvasc. Abdominal pain. Will start patient on morphine and hydrocodone prn. Lipase is within normal limits. End-stage renal disease on peritoneal dialysis. Nephrology consulted. Will continue Renvela . Pleuritic chest pain. Serial troponins negative. Anxiety. Will continue Ativan prn. Nausea and vomiting. Will continue Reglan, appears to work much better than zofran for pt. Deep vein thrombosis prophylaxis. Heparin. Disposition: Inpatient. Given rapid improvement possible dc tomorrow. Code Status: Full Code Hilda Edwards DO 12/09/2018Lois Richmond MD - 12/09/2018 9:58 AM PSTFormatting of this note may be dif ferent from the original. [facility] Service: Infectious Disease Progress Note Hospital Day: LOS: 2 days Post-Op Day: * No surgery found * SUBJECTIVE Patient Summary: Re: Peritonitis, ESRD on PD ?Colitis Events Overnight: Tmax 99F. No chills or sweats. Has mild nausea. No vomiting this m orning. Able to tolerate pills. Has not yet had food. No diarrhea No issues with PD; less abdominal pain No pruritus or new skin rash Scheduled Medications amLODIPine 2.5 mg Oral Nightly cefOXitin 1 g Intravenous Q24H ergocalciferol 50,000 Units Oral Weekly heparin (porcine) 5000 unit/0.5mL 5,000 Units Subcutaneous 2 times per day sevelamer 1,600 mg Oral TID WC Continuous Infusions lactated ringers 75 mL/hr at 12/09/18 0241 PRN Medications acetaminophen OR acetaminophen, calcium carbonate, HYDROcodone-acetaminophen, LORazepam , morphine, ondansetron OR ondansetron, polyethylene glycol, zolpidem OBJECTIVE Vital Signs: BP 122/58 (BP Location: Left upper arm) | Pulse 79 | Temp 98.6 F (37 C) (Oral) | Res p 18 | Wt 81.1 kg (178 lb 12.7 oz) | SpO2 98% | BMI 32.70 kg/m Temp: [98.1 F (36.7 C)-98.9 F (37.2 C)] 98.6 F (37 C) (12/09 756) BP: (106-134)/(58-82) 122/58 (12/09 742) Heart Rate: [66-95] 79 (12/09 742) Resp: [18] 18 (12/09 756) SpO2: [96 %-100 %] 98 % (12/09 756) Weight: [81.1 kg (178 lb 12.7 oz)] 81.1 kg (178 lb 12.7 oz) (12/09 307) Physical Exam Vital signs reviewed General: Obese female, not in acute distress. Sleepy. in room/bed HEENT: Normocephalic. Anicteric sclerae, no conjunctival lesions. No oral thrush or ulce rs. Supple neck Lungs: No adventitious breath sounds CV: RRR, no murmur or rubs Abdomen: PD catheter site - no inflammation. Positive bowel sounds. Soft. No tenderness , rebound, guarding. No palpable masses Skin: No rash MS: No inflamed looking joints Neurologic: oriented x 3, no focal weakness DATA CBC: Lab Results Component Value Date WBC 11.41 (H) 12/09/2018 RBC 3.48 (L) 12/09/2018 HGB 10.2 (L) 12/09/2018 HCT 30.3 (L) 12/09/2018 MCV 87.1 12/09/2018 MCH 29.3 12/09/2018 MCHC 33.7 12/09/2018 RDW 43.8 12/09/2018 PLT 307 12/09/2018 MPV 8.1 12/09/2018 DIFFTYPE MANUAL 12/09/2018 WBC: Lab Results Component Value Date WBC 11.41 (H) 12/09/2018 NEUTABSMAN 8.67 (H) 12/09/2018 NEUTROABS 15.94 (H) 12/08/2018 NEUTROMAN 76 12/09/2018 LYMPHOABS 2.05 12/09/2018 LYMPHOMAN 18 12/09/2018 LYMPHSABS 1.88 12/08/2018 LYMPHOPCT 10.02 12/08/2018 MONOABSMAN 0.46 12/09/2018 MONOMAN 4 12/09/2018 MONOPCT 4.59 12/08/2018 EOSINOABS 0.23 12/09/2018 EOSINOMAN 2 12/09/2018 EOSABS 0.02 12/08/2018 EOSPCT 0.13 12/08/2018 BASOABSMAN 0.14 (H) 03/17/2018 BASOSABS 0.07 12/08/2018 BASOSMAN 1 03/17/2018 BASOPCT 0.38 12/08/2018 PLTEST INCREASED 12/07/2018 BANDSPCT 10 12/07/2018 METAABS 0.26 (H) 12/07/2018 METAPCT 1 12/07/2018 COMDIFF SLIDE SCANNED, AGREES WITH AUTOMATED RESULTS. 03/16/2018 CMP: Lab Results Component Value Date NA 139 12/09/2018 K 3.6 12/09/2018 CL 98 (L) 12/09/2018 CO2 29 12/09/2018 ANIONGAP 16 12/09/2018 GLUF 93 12/09/2018 BUN 32 (H) 12/09/2018 CREATININE 13.6 (H) 12/09/2018 BCR 2 12/09/2018 CA 8.3 (L) 12/09/2018 CA 9.0 09/07/2017 PROT 8.7 (H) 12/07/2018 ALB 4.9 12/07/2018 GLOB 3.8 12/07/2018 BILITOT 0.2 12/07/2018 ALP 126 (H) 12/07/2018 AST 15 12/07/2018 ALT 11 12/07/2018 EGFR 3 (L) 12/09/2018 HgBA1c: Lab Results Component Value Date HGBA1C 5.1 10/26/2015 LABGLYC 100 10/26/2015 Component Latest Ref Rng & Units 12/07/2018 8:00 PM FLUID TYPE PERITONEAL FLUID COLOR COLORLESS APPEARANCE SLIGHTLY HAZY RBC'S /mm3 10,000 TOTAL NUCLEATED CELLS /mm3 151 NEUTROPHILS % 69 LYMPHOCYTES % 5 MONOCYTES/MACROPHAGES % 26 Cells Counted 100 Lab Results Component Value Date CRP 2.5 (H) 12/07/2018 Component Latest Ref Rng & Units 12/07/2018 3:30 PM LIPASE 12 - 53 U/L 51 Microbiology data: 12/07 peritoneal fluid Gram stain with no organisms, culture with no growth to date 12/07 blood cultures with no growth to date 12/08 MRSA nasal PCR negative Radiology data: CT of the abdomen and pelvis without contrast The intrinsically complex and/or dense 4.5 cm mass arising from the right ovary or adnexa is stable but could be a source for ongoing symptoms 2. Stable renal atrophy and likely peritoneal dialysis catheter, without adjacent fluid collection or hemorrhage along the course of the catheter 3. No extraluminal lesion, dilatation or obstruction but non masslike wall thickening of the proximal colon is demonstrated. No high-grade adjacent inflammatory changes or fluid collection. Still, low-grade proximal colitis is possible, and there is diverticulosis Signed by: Santos Gil Sign Date/Time: 12/07/2018 4:56 PM Diverticulosis without evidence of diverticulitis. There is some non high-grade wall thickening of the proximal large bowel, from about the ileo cecum to the hepatic flexure Chest x-ray Negative chest. Signed by: Zev Conner Sign Date/Time: 12/07/2018 4:36 PM Transthoracic echocardiogram Impression 1. Overall left ventricular systolic function is normal with, an EF between 60 - 65 %. 2. There is mild concentric left ventricular hypertrophy. 3. No regional wall motion abnormalities. 4. The right ventricle is normal in size and function. 5. The left atrial size is normal. 6. There is no evidence of aortic stenosis. 7. There is trace mitral regurgitation. 8. The poor TR signal prevents accurate estimation of pulmonary pressures. 9. There is no pericardial effusion. PROBLEM LIST Principal Problem: Peritonitis due to infected peritoneal dialysis catheter (HCC) Active Problems: Abdominal pain ESRD on peritoneal dialysis Leukocytosis ASSESSMENT & PLAN Peritonitis, culture negative -Patient has end-stage renal disease on peritoneal dialysis. She had prior episodes of jazmine picion for peritonitis but negative cultures -Presenting symptoms of abdominal pain, nausea, vomiting x 4 days duration with poor oral intake for 2 days. She was afebrile but WBC on presentation was 26,340 with 78 percent neutr ophils, 10 percent bands GI symptoms improving - still with nausea. WBC now down to 11k -peritoneal culture and blood cultures with no growth to date. MRSA nasal PCR negative -CT of abdomen/pelvis without contrast shows diverticulosis but not diverticulitis with po ssible low-grade proximal colitis. Right ovarian/adnexal mass is described to be stable -Patient received IV Zosyn in the ER; currently on IV cefoxitin -If able to tolerate meals today, will transition to po cefdinir 300 mg daily/metronidazol e 500 mg bid x 10 days for discharge and recheck peritoneal dialysate cell count/Gram stain and culture on Friday as outpatient Case discussed with Dr. Edwards and Dr. Rey *Addendum - did not tolerate lunch well Continue cefoxitin IV today Code Status: Full Code LOIS RICHMOND MD 12/09/2018RayHilda pavon DO - 12/08/2018 8:13 AM PSTFormatting of this note may be diffe rent from the original. [facility] Service: Hospitalist Progress Note Hospital Day: LOS: 1 day Post-Op Day: * No surgery found * SUBJECTIVE Patient Summary: The patient is a 38 y.o. female with significant past medical history of End-stage renal disease, on peritoneal dialysis, hypertension, presented to the ED with 4 day history of abdominal pain, nausea and vomiting. The patient complains of dry heaving an d cramping abdominal pain, ongoing since the past 4 days. She has not been able to eat anyt lalit for the past 2 days. She also complains of pleuritic chest pain, which comes on with d ry heaving, but denies any shortness of breath. The patient rates the pain 10/10 when she p resented to the emergency department and then after she received morphine, her pain has subs ided. She also received a dose of Zosyn for possible peritonitis and Nephrology was consult ed. Peritoneal fluid has been drawn and fluid studies are pending. The patient is being ad mitted for suspected peritonitis. Events Overnight: - Abdominal pain improving throughout the day - Discussed case w ID, will de-escalate to cefoxitan - Nephrology following for PD - VSS Tmax 98.4F, HR 60s-80s, RR 18, 100% RA Scheduled Medications amLODIPine 2.5 mg Oral Nightly cefTAZidime 500 mg Intravenous Daily ergocalciferol 50,000 Units Oral Weekly heparin (porcine) 5000 unit/0.5mL 5,000 Units Subcutaneous 2 times per day sevelamer 1,600 mg Oral TID WC Continuous Infusions lactated ringers 75 mL/hr at 12/08/18 0125 PRN Medications acetaminophen OR acetaminophen, calcium carbonate, HYDROcodone-acetaminophen, LORazepam , morphine, ondansetron OR ondansetron, polyethylene glycol, zolpidem OBJECTIVE Vital Signs: BP 137/86 (BP Location: Left upper arm) | Pulse 91 | Temp 98.5 F (36.9 C) (Oral) | R enmanuel 18 | Wt 79.5 kg (175 lb 3.2 oz) | SpO2 98% | BMI 32.04 kg/m Constitutional: She is oriented to person, place, and time. She appears well-developed and well-nourished. HENT: Head: Normocephalic and atraumatic. Eyes: Pupils are equal, round, and reactive to light. EOM are normal. Neck: Normal range of motion. Neck supple. Cardiovascular: Regular rate, normal rhythm. No murmurs Pulmonary/Chest: Effort normal and breath sounds normal. No respiratory distress. She has n o wheezes. Abdominal: Soft. Bowel sounds are normal. No tenderness, no guarding/rebound. PD catheter p resent. Musculoskeletal: Normal range of motion. She exhibits no edema. Neurological: She is alert and oriented to person, place, and time. No cranial nerve defici t. Skin: Skin is warm and dry. No erythema. Psychiatric: She has a normal mood and affect. DATA CBC: Lab Results Component Value Date WBC 18.78 (H) 12/08/2018 RBC 3.76 12/08/2018 HGB 10.7 (L) 12/08/2018 HCT 32.9 (L) 12/08/2018 MCV 87.4 12/08/2018 MCH 28.5 12/08/2018 MCHC 32.7 12/08/2018 RDW 44.6 12/08/2018 PLT 376 12/08/2018 MPV 8.1 12/08/2018 DIFFTYPE AUTOMATED 12/08/2018 CMP: Lab Results Component Value Date NA 138 12/08/2018 K 3.1 (L) 12/08/2018 CL 95 (L) 12/08/2018 CO2 25 12/08/2018 ANIONGAP 21 (H) 12/08/2018 GLUF 113 (H) 12/08/2018 BUN 35 (H) 12/08/2018 CREATININE 13.4 (H) 12/08/2018 BCR 3 12/08/2018 CA 8.1 (L) 12/08/2018 CA 9.0 09/07/2017 PROT 8.7 (H) 12/07/2018 ALB 4.9 12/07/2018 GLOB 3.8 12/07/2018 BILITOT 0.2 12/07/2018 ALP 126 (H) 12/07/2018 AST 15 12/07/2018 ALT 11 12/07/2018 EGFR 3 (L) 12/08/2018 PROBLEM LIST Principal Problem: Peritonitis (HCC) Active Problems: Abdominal pain ESRD on peritoneal dialysis Leukocytosis ASSESSMENT & PLAN Culture negative PD associated peritonitis - Discussed with Dr. Rey, for PD any cell count >100 is considered positive, patient's PD fluid came back with 151 WBCs/mm3 so will continue abx - ID following, de-escalate to cefoxitan Hypertension. Will continue Norvasc. Abdominal pain. Will start patient on morphine and hydrocodone prn. Lipase is within normal limits. Dehydration. We will start patient on IV fluids. Discussed with Dr. Rey. End-stage renal disease on peritoneal dialysis. Nephrology consulted. Will continue Renvela . Pleuritic chest pain. Serial troponins negative. Anxiety. Will continue Ativan prn. Nausea and vomiting. Will continue Zofran prn. Deep vein thrombosis prophylaxis. Will start patient on heparin. Disposition: Inpatient. Given rapid improvement possible dc tomorrow. Code Status: Full Code Hilda Edwards, DO 12/08/2018FrApril isaac, [facility] - 12/07/2018 11:24 PM PSTRenal Dosing Monitoring: Ramona Oconnor 38 y.o. female Pharmacy dosing for renal function per Dr. Ginger Bass Serum creatinine: 13.7 mg/dL (H) 12/07/18 1530 Estimated creatinine clearance: 5.3 mL/min (A) Patient receives peritoneal dialysis Plan per protocol: Adjusting Ceftazidime 1 G IV daily to Ceftazidime 1 G IV once followed by Ceftazidime 500 m g Daily while patient is receiving peritoneal dialysis. No other medications need adjustment at this time Pharmacy will continue to monitor changes in medication orders and renal function and will adjust accordingly. 12/07/2018 11:19 PM Pharmacist: April Chacon in this encounter Plan of Treatment + +--------+ + + | Name | Priori | Associated Diagnoses | Order Schedule | | | ty | | | + +--------+ + + | Blood Culture Set 1 | Timed | | Timed (Now or | | | | | Specify) for 1 | | | | | Occurrences starting | | | | | 12/07/2018 until | | | | | 12/07/2018 | + +--------+ + + as of this encounter Procedures + +--------+ + + + | Procedure Name | Priori | Date/Time | Associated Diagnosis | Comments | | | ty | | | | + +--------+ + + + | PERITONEAL DIALYSIS | Today | 12/10/2018 | | Results for this | | | | 11:02 AM | | procedure are in the | | | | PST | | results section. | + +--------+ + + + | PERITONEAL DIALYSIS | Today | 12/09/2018 | | Results for this | | | | 8:19 AM | | procedure are in the | | | | PST | | results section. | + +--------+ + + + | CBC W/MANUAL DIFF | Routin | 12/09/2018 | | Results for this | | | e | 5:48 AM | | procedure are in the | | | | PST | | results section. | + +--------+ + + + | BASIC METABOLIC | Routin | 12/09/2018 | | Results for this | | PANEL | e | 5:48 AM | | procedure are in the | | | | PST | | results section. | + +--------+ + + + | ECHO CARDIAC ADULT | Routin | 12/08/2018 | | Results for this | | COMPLETE | e | 1:51 PM | | procedure are in the | | | | PST | | results section. | + +--------+ + + + | PERITONEAL DIALYSIS | Routin | 12/08/2018 | | Results for this | | | e | 11:45 AM | | procedure are in the | | | | PST | | results section. | + +--------+ + + + | TROPONIN I | Timed | 12/08/2018 | | Results for this | | | | 6:03 AM | | procedure are in the | | | | PST | | results section. | + +--------+ + + + | CBC W/AUTO DIFF | Routin | 12/08/2018 | | Results for this | | (REFLEX TO MANUAL) | e - AM | 6:03 AM | | procedure are in the | | | | PST | | results section. | + +--------+ + + + | PHOSPHOROUS | Routin | 12/08/2018 | | Results for this | | | e - AM | 6:03 AM | | procedure are in the | | | | PST | | results section. | + +--------+ + + + | MAGNESIUM | Routin | 12/08/2018 | | Results for this | | | e - AM | 6:03 AM | | procedure are in the | | | | PST | | results section. | + +--------+ + + + | BASIC METABOLIC | Routin | 12/08/2018 | | Results for this | | PANEL | e - AM | 6:03 AM | | procedure are in the | | | | PST | | results section. | + +--------+ + + + | MRSA BY PCR | Timed | 12/08/2018 | | Results for this | | | | 1:18 AM | | procedure are in the | | | | PST | | results section. | + +--------+ + + + | BLOOD CULTURE, SET 2 | Timed | 12/07/2018 | | Results for this | | | | 11:53 PM | | procedure are in the | | | | PST | | results section. | + +--------+ + + + | TROPONIN I | Timed | 12/07/2018 | | Results for this | | | | 11:53 PM | | procedure are in the | | | | PST | | results section. | + +--------+ + + + | BODY FLUID CELL | STAT | 12/07/2018 | | Results for this | | COUNT | | 8:00 PM | | procedure are in the | | | | PST | | results section. | + +--------+ + + + | FLUID CULT W/GRAM | STAT | 12/07/2018 | | Results for this | | STAIN | | 4:59 PM | | procedure are in the | | | | PST | | results section. | + +--------+ + + + | CT ABDOMEN PELVIS WO | JONG | 12/07/2018 | | Results for this | | CONTRAST | | 4:44 PM | | procedure are in the | | | | PST | | results section. | + +--------+ + + + | XR CHEST 2 VIEW | JONG | 12/07/2018 | | Results for this | | FRONTAL AND LATERAL | | 4:28 PM | | procedure are in the | | | | PST | | results section. | + +--------+ + + + | EKG 12 LEAD UNIT | STAT | 12/07/2018 | | Results for this | | PERFORMED | | 3:45 PM | | procedure are in the | | | | PST | | results section. | + +--------+ + + + | CRITICAL CARE | Routin | 12/07/2018 | | Results for this | | | e | 3:42 PM | | procedure are in the | | | | PST | | results section. | + +--------+ + + + | [facility]ARD PANEL W/O | STAT | 12/07/2018 | | Results for this | | TRP (ED ONLY) | | 3:30 PM | | procedure are in the | | | | PST | | results section. | + +--------+ + + + | TROPONIN I | STAT | 12/07/2018 | | Results for this | | | | 3:30 PM | | procedure are in the | | | | PST | | results section. | + +--------+ + + + | D-DIMER, | STAT | 12/07/2018 | | Results for this | | QUANTITATIVE | | 3:30 PM | | procedure are in the | | | | PST | | results section. | + +--------+ + + + | C-REACTIVE PROTEIN | STAT | 12/07/2018 | | Results for this | | | | 3:30 PM | | procedure are in the | | | | PST | | results section. | + +--------+ + + + | PHOSPHOROUS | STAT | 12/07/2018 | | Results for this | | | | 3:30 PM | | procedure are in the | | | | PST | | results section. | + +--------+ + + + | BRAIN NATRIURETIC | STAT | 12/07/2018 | | Results for this | | PEPTIDE | | 3:30 PM | | procedure are in the | | | | PST | | results section. | + +--------+ + + + | MAGNESIUM | STAT | 12/07/2018 | | Results for this | | | | 3:30 PM | | procedure are in the | | | | PST | | results section. | + +--------+ + + + | LIPASE | STAT | 12/07/2018 | | Results for this | | | | 3:30 PM | | procedure are in the | | | | PST | | results section. | + +--------+ + + + in this encounter Results PERITONEAL DIALYSIS (12/10/2018 11:02 AM) + + + | Narrative | Performed At | + + + | Santos Rey MD 12/16/2018 5:34 PM Hospital Problem List: | | | Principal Problem: Peritonitis due to infected peritoneal | | | dialysis catheter (HCC) Active Problems: Abdominal pain | | | ESRD on peritoneal dialysis Leukocytosis The | | | patient says that she feels 'ok' today. she denies any chest | | | pain, dyspnea; her urine output is low. Admitted for Possible | | | peritonitis She presented with stomach pain x 4 days, nausea and | | | vomiting worsening, low po intake for a few days. PD fluid | | | yesterday was clear with some fibrin, no blood or | | | cloudiness. Little dizziness, no loc, no falls. Home PD Rx is: | | | 6 fills, 2L, 1.5hrs each. 1.5% last night (12/06). UF from PD | | | today is: 1L The following portions of the patient's history | | | were reviewed and updated as appropriate: laboratory data, | | | radiologic studies, allergies, current medications, and problem | | | list. Scheduled Meds: | | | amLODIPine 2.5 mg Oral Nightly | | | cefdinir 300 mg Oral Daily | | | ergocalciferol 50,000 Units Oral Weekly | | | heparin (porcine) 5000 unit/0.5mL 5,000 Units Subcutaneous 2 | | | times per day | | | metroNIDAZOLE 500 mg Oral 2 times per day | | | sevelamer 1,600 mg Oral TID WC Continuous Infusions: | | | lactated ringers 75 mL/hr at 12/10/18 0449 PRN | | | Meds:.acetaminophen OR acetaminophen, calcium carbonate, | | | HYDROcodone-acetaminophen, HYDROcodone-acetaminophen, LORazepam, | | | metoclopramide, polyethylene glycol, promethazine, zolpidem BP | | | 115/68 | Pulse 82 | Temp 98.8 F (37.1 C) (Oral) | Resp 16 | | | | Ht 1.575 m (5' 2") | Wt 81.1 kg (178 lb 12.7 oz) | SpO2 | | | 97% | BMI 32.70 kg/m General appearance: Pleasant, not in | | | acute distress. Up to bedside. Family in room. Lungs: Clear to | | | auscultation. There are no wheezes. Heart: Regular rate and | | | rhythm without any rub, gallop. no murmur. Abdominal exam: Soft | | | and mild tenderness on left with normal bowel sounds. | | | Extremities: Warm to touch with no leg edema. There is no | | | cyanosis or clubbing. Neurological: Awake, alert, and oriented to | | | time, place, and person. Normal gross motor power. There is no | | | asterixis. Access : PD cath in place, site is benign Lab Results | | | Component Value Date BUN 32 (H) 12/09/2018 CREATININE 13.6 | | | (H) 12/09/2018 EGFR 3 (L) 12/09/2018 NA 139 12/09/2018 K 3.6 | | | 12/09/2018 CL 98 (L) 12/09/2018 CO2 29 12/09/2018 CA 8.3 (L) | | | 12/09/2018 PHOS 6.1 (H) 12/08/2018 MG 3.1 (H) 12/08/2018 ALB | | | 4.9 12/07/2018 HGB 10.2 (L) 12/09/2018 I/O last 3 completed | | | shifts: In: 10186 [P.O.:1110; I.V.:2701; Other:85936] Out: [id number] | | | [Emesis/NG output:240; Other:16507] Assessment: Ms. Oconnor is a | | | 38 y.o. female patient with ESRD, PD. Admitted for Possible | | | peritonitis Anemia of ESRD hypermag hyperphos hypoK | | | Potassium 40mEq po x 1 dose 12/08 Recommendations: Daily PD, UF | | | as tolerated Abx per ID team No acute need for ANGELA; she is on the | | | outpatient protocol for that Protein supplements stressed Low phos | | | in diet & use of Phos binders stressed Strict I/O and Daily Weights | | | From the renal perspective: She may be released. I discussed the | | | case with the primary team at the time of this encounter. | | | SANTOS REY MD | | + + + PERITONEAL DIALYSIS (12/09/2018 8:19 AM) + + + | Narrative | Performed At | + + + | Demar[facility] Sexton 12/09/2018 3:07 PM Hospital | | | Problem List: Principal Problem: Peritonitis due to infected | | | peritoneal dialysis catheter (HCC) Active Problems: Abdominal | | | pain ESRD on peritoneal dialysis Leukocytosis The | | | patient says that she feels 'ok' today. she denies any chest | | | pain, dyspnea . her urine output is noted. Admitted for Possible | | | peritonitis She presented with stomach pain x 4 days, nausea and | | | vomiting worsening, low po intake for a few days. PD fluid | | | yesterday was clear with some fibrin, no blood or | | | cloudiness. Little dizziness, no loc, no falls. Home PD Rx is: | | | 6 fills, 2L, 1.5hrs each. 1.5% last night (12/06). UF from PD | | | today is: 1L The following portions of the patient's history | | | were reviewed and updated as appropriate: laboratory data, | | | radiologic studies, allergies, current medications, and problem | | | list. Scheduled Meds: | | | amLODIPine 2.5 mg Oral Nightly | | | cefOXitin 1 g Intravenous Q24H | | | ergocalciferol 50,000 Units Oral Weekly | | | heparin (porcine) 5000 unit/0.5mL 5,000 Units Subcutaneous 2 | | | times per day | | | sevelamer 1,600 mg Oral TID WC Continuous Infusions: | | | lactated ringers 75 mL/hr at 12/09/18 0241 PRN | | | Meds:.acetaminophen OR acetaminophen, calcium carbonate, | | | HYDROcodone-acetaminophen, LORazepam, morphine, ondansetron OR | | | ondansetron, polyethylene glycol, zolpidem BP 122/58 (BP Location: | | | Left upper arm) | Pulse 79 | Temp 98.6 F (37 C) | | | (Oral) | Resp 18 | Wt 81.1 kg (178 lb 12.7 oz) | SpO2 | | | 98% | BMI 32.70 kg/m General appearance: Pleasant, not in | | | acute distress. Up to bedside. Family in room. Lungs: Clear to | | | auscultation. There are no wheezes. Heart: Regular rate and | | | rhythm without any rub, gallop. no murmur. Abdominal exam: Soft | | | and mild tenderness on left with normal bowel sounds. | | | Extremities: Warm to touch with no leg edema. There is no | | | cyanosis or clubbing. Neurological: Awake, alert, and oriented to | | | time, place, and person. Normal gross motor power. There is no | | | asterixis. Access : PD cath in place, site is benign Lab Results | | | Component Value Date BUN 32 (H) 12/09/2018 CREATININE 13.6 | | | (H) 12/09/2018 EGFR 3 (L) 12/09/2018 NA 139 12/09/2018 K 3.6 | | | 12/09/2018 CL 98 (L) 12/09/2018 CO2 29 12/09/2018 CA 8.3 (L) | | | 12/09/2018 PHOS 6.1 (H) 12/08/2018 MG 3.1 (H) 12/08/2018 ALB | | | 4.9 12/07/2018 HGB 10.2 (L) 12/09/2018 I/O last 3 completed | | | shifts: In: 03115 [P.O.:1200; I.V.:2902; Other:34522] Out: 40729 | | | [Other:41484] Assessment: Ms. Oconnor is a 38 y.o. female patient | | | with ESRD, PD. Admitted for Possible peritonitis Anemia of ESRD | | | hypermag hyperphos hypoK Potassium 40mEq po x 1 dose 12/08 | | | Recommendations: Daily PD, UF as tolerated Abx per ID team No | | | acute need for ANGELA Protein supplements stressed Low phos in diet & | | | use of Phos binders stressed Strict I/O and Daily Weights Encourage | | | IS We discussed the case with the primary team at the time of | | | this encounter. BALJIT Guerrier | | + + + Basic metabolic panel (12/09/2018 5:48 AM) + + + + + | Component | Value | Ref Range | Performed At | + + + + + | SODIUM | 139 | 135 - 145 mmol/L | [facility] | | | | | [facility] | + + + + + | POTASSIUM | 3.6 | 3.5 - 4.9 mmol/L | [facility] | | | | | [facility] | + + + + + | CHLORIDE | 98 (L) | 99 - 109 mmol/L | [facility] | | | | | [facility] | + + + + + | CO2 | 29 | 23 - 32 mmol/L | [facility] | | | | | [facility] | + + + + + | ANION GAP AGAP | 16 | 5 - 20 mmol/L | [facility] | | | | | [facility] | + + + + + | GLUCOSE | 93 | 65 - 99 mg/dL | [facility] | | | | | [facility] | + + + + + | BUN | 32 (H) | 8 - 25 mg/dL | [facility] | | | | | [facility] | + + + + + | CREATININE | 13.6 (H) | 0.50 - 1.00 mg/dL | [...] the | | | | | MDRD IDIL traceable | | | | | equation.Testing | | | | | performed at [facility], [address] | | | | [facility], | | | | | [place] [address] | | | + + + + + + + | Specimen | + + | Blood | + + + + + + + | Performing | Address | City/State/Zipcode | Phone Number | | Organization | | | | + + + + + | [facility] | [address] | [place] [address] | [phone] | | LABORATORY | [address] | | | + + + + + CBC w/manual diff (12/09/2018 5:48 AM) + + + + + | Component | Value | Ref Range | Performed At | + + + + + | WBC | 11.41 (H) | 3.80 - 11.00 K/uL | [facility] | | | | | [facility] | + + + + + | RBC | 3.48 (L) | 3.70 - 5.10 M/uL | [facility] | | | | | [facility] | + + + + + | HGB | 10.2 (L) | 11.3 - 15.5 g/dL | [facility] | | | | | [facility] | + + + + + | HCT | 30.3 (L) | 34.0 - 46.0 % | [facility] | | | | | [facility] | + + + + + | MCV | 87.1 | 80.0 - 100.0 fl | [facility] | | | | | [facility] | + + + + + | MCH | 29.3 | 27.0 - 34.0 pg | [facility] | | | | | [facility] | + + + + + | MCHC | 33.7 | 32.0 - 35.5 g/dL | [facility] | | | | | [facility] | + + + + + | RDW SD | 43.8 | 37 - 53 fl | [facility] | | | | | [facility] | + + + + + | PLT | 307 | 150 - 400 K/uL | [facility] | | | | | [facility] | + + + + + | MPV | 8.1 | fl | [facility] | | | | | [facility] | + + + + + | DIFF TYPE | MANUAL | | [facility] | | | | | [facility] | + + + + + | Neutrophils Manual | 76 | % | [facility] | | | | | [facility] | + + + + + | Lymphocytes Manual | 18 | % | [facility] | | | | | [facility] | + + + + + | Monocytes Manual | 4 | % | [facility] | | | | | [facility] | + + + + + | Eosinophils Manual | 2 | % | [facility] | | | | | [facility] | + + + + + | Neutrophils Absolute | 8.67 (H) | 1.90 - 7.40 K/uL | [facility] | | | | | [facility] | + + + + + | Lymphocytes Absolute | 2.05 | 1.00 - 3.90 K/uL | [facility] | | | | | [facility] | + + + + + | Monocytes Absolute | 0.46 | 0.00 - 0.80 K/uL | [facility] | | | | | [facility] | + + + + + | Eosinophils Absolute | 0.23 | 0.00 - 0.50 K/uL | [facility] | | | | | [facility] | + + + + + | MORPHOLOGY | 1+Comment: HYPONORMAL | | [facility] | | | PLT MORPH[facility] | | LAB[facility]AT[facility] | | | performed at [facility], [address] | | | | [address], | | | | | [place] [address] | | | | | | | | + + + + + + + | Specimen | + + | Blood | + + + + + + + | Performing | Address | City/State/Zipcode | Phone Number | | Organization | | | | + + + + + | [facility] | [address] | [place] [address] | [phone] | | LABORATORY | [address] | | | + + + + + Echo cardiac adult complete (12/08/2018 1:51 PM) + +-------+ + + | Component | Value | Ref Range | Performed At | + +-------+ + + | LV EF | 65 | 50 - 70 % | [facility] | | | | | RADIOLOGY | + +-------+ + + + + + | Impressions | Performed At | + + + | 1. Overall left ventricular systolic function is normal with, an EF | [facility] | | between 60 - 65 %. 2. There is mild concentric left ventricular | RADIOLOGY | | hypertrophy. 3. No regional wall motion abnormalities. 4. The right | | | ventricle is normal in size and function. 5. The left atrial size is | | | normal. 6. There is no evidence of aortic stenosis. 7. There is | | | trace mitral regurgitation. 8. The poor TR signal prevents accurate | | | estimation of pulmonary pressures. 9. There is no pericardial | | | effusion. | | + + + + + + | Narrative | Performed At | + + + | Patient Name: RAMONA OCONNOR Date of : 1980 | [facility] | | Performing Physician: Imtiaz Mari MD | RADIOLOGY | | | | | INDICATIONS pleuritic chest pain CONCLUSIONS | | | 1. Overall left ventricular systolic function is normal | | | with, an EF between 60 - 65 %. 2. There is mild concentric left | | | ventricular hypertrophy. 3. No regional wall motion abnormalities. | | | 4. The right ventricle is normal in size and function. 5. The left | | | atrial size is normal. 6. There is no evidence of aortic stenosis. | | | 7. There is trace mitral regurgitation. 8. The poor TR signal | | | prevents accurate estimation of pulmonary pressures. 9. There is no | | | pericardial effusion. FINDINGS -------- ECG rhythm: Sinus | | | rhythm. Study: A 2-dimensional transthoracic echocardiogram with | | | m-mode, spectral and color flow Doppler was perfomed. Study: This | | | was a technically difficult study with suboptimal views. Left | | | Ventricle: Overall left ventricular systolic function is normal with, | | | an EF between 60 - 65 %. Left Ventricle: The left ventricle cavity | | | size is normal. Left Ventricle: There is mild concentric left | | | ventricular hypertrophy. Left Ventricle: No obvious regional wall | | | motion abnormalities. Left Ventricle: The diastolic filling pattern | | | is normal for the age of the patient. Right Ventricle: The right | | | ventricle is normal in size and function. Left Atrium: The left | | | atrial size is normal. Aortic Valve: The aortic valve was not well | | | visualized. Aortic Valve: There is no evidence of aortic | | | regurgitation. Aortic Valve: There is no evidence of aortic | | | stenosis. Mitral Valve: The mitral valve is normal. Mitral Valve: | | | There is trace mitral regurgitation. Tricuspid Valve: Trace tricuspid | | | regurgitation present. Tricuspid Valve: The poor TR signal prevents | | | accurate estimation of pulmonary pressures. Pulmonic Valve: The | | | pulmonic valve was not well visualized. Pulmonic Valve: | | | Trace pulmonic regurgitation. Pericardium: There is no pericardial | | | effusion. Pericardium: No pleural effusion seen. IVC/Hepatic | | | Veins: The IVC is normal size (1.5-2.5cm) and collapses >50% with | | | sniff, consistent with central venous pressures of 3 mmHg. Aorta: The | | | aortic root and ascending aorta are normal in size. Mass: No mass | | | visualized Thrombus: No clot visualized MEASUREMENTS | | | RA Area: 15.87 cm2 Ao asc: 3.12 cm Ao | | | sinus: 3.47 cm IVC: 1.73 cm EDV(Teich): 55.32 ml | | | IVSd: 1.25 cm LVIDd: 3.62 cm LVPWd: 0.99 cm LVOT | | | Diam: 1.99 cm %FS: 42.33 % EF(Teich): 74.27 % | | | ESV(Teich): 14.23 ml IVSs: 1.65 cm LVIDs: 2.08 cm | | | LVPWs: 1.40 cm SV(Teich): 41.09 ml RVIDd: 3.68 cm LVEF | | | MOD A2C: 66.22 % SV MOD A2C: 42.83 ml LVEF MOD A4C: | | | 65.35 % SV MOD A4C: 51.30 ml EF Biplane: 65.41 % LVEDV MOD | | | BP: 71.59 ml LVESV MOD BP: 24.76 ml LVEDV MOD A2C: 64.68 | | | ml LVLd A2C: 7.87 cm LVEDV MOD A4C: 78.50 ml LVLd A4C: | | | 8.00 cm LVESV MOD A2C: 21.84 ml LVLs A2C: 5.96 cm LVESV | | | MOD A4C: 27.20 ml LVLs A4C: 5.53 cm LAESV(A-L): 47.06 ml | | | LAESV Index (A-L): 26.00 ml/m2 LAAs A2C: 16.18 cm2 LAESV | | | A-L A2C: 41.14 ml LALs A2C: 5.40 cm LAAs A4C: 18.51 cm2 | | | LAESV A-L A4C: 51.64 ml LALs A4C: 5.63 cm TAPSE: 1.80 | | | cm AV maxP.66 mmHg AV meanP.54 mmHg AV Vmax: | | | 1.38 m/s AV Vmean: 1.00 m/s AV VTI: 26.68 cm QUANG Vmax: | | | 2.35 cm2 QUANG (VTI): 2.52 cm2 AVAI Vmax: 0.00 cm2/m2 AVAI | | | (VTI): 0.00 cm2/m2 LVOT maxP.36 mmHg LVOT meanPG: | | | 2.11 mmHg LVSI Dopp: 37.20 ml/m2 LVSV Dopp: 67.33 ml LVOT | | | Vmax: 1.04 m/s LVOT Vmean: 0.67 m/s LVOT VTI: 21.59 cm | | | MV A Kilo: 1.25 m/s MV DecT: 340.74 ms MV E Kilo: 0.78 m/s | | | MV E/A Ratio: 0.62 Septal e': 0.05 m/s Septal E/e': | | | 15.43 Lateral e': 0.07 m/s Lateral E/e': 10.76 HR: | | | 85.10 BPM PV maxP.84 mmHg PV meanP.23 mmHg PV | | | Vmax: 0.98 m/s PV Vmean: 0.72 m/s PV VTI: 19.85 cm RV | | | S': 0.11 m/s Transit Manager: NAVJOT Authenticated by: Imtiaz Mari | | | Report Date/Time: 12-08-2018 17:48:59 | | + + + + + | Procedure Note | + + | Migue Schumacher In 12/08/2018 5:49 PM PST Patient Name: Shlomo OCONNOR of | | : 1980Accession: [id number] Physician: Imtiaz Mari | | INDICATIONS p | | leuritic chest painCONCLUSIONS 1. Overall left ventricular systolic function | | is normal with, an EF between 60 - 65 %.2. There is mild concentric left ventricular | | hypertrophy.3. No regional wall motion abnormalities.4. The right ventricle is normal in | | size and function.5. The left atrial size is normal.6. There is no evidence of aortic | | stenosis.7. There is trace mitral regurgitation.8. The poor TR signal prevents accurate | | estimation of pulmonary pressures.9. There is no pericardial | | effusion.FINDINGS--------ECG rhythm: Sinus rhythm.Study: A 2-dimensional transthoracic | | echocardiogram with m-mode, spectral and color flow Doppler was perfomed. Study: This | | was a technically difficult study with suboptimal views.Left Ventricle: Overall left | | ventricular systolic function is normal with, an EF between 60 - 65 %. Left Ventricle: | | The left ventricle cavity size is normal. Left Ventricle: There is mild concentric left | | ventricular hypertrophy. Left Ventricle: No obvious regional wall motion abnormalities. | | Left Ventricle: The diastolic filling pattern is normal for the age of the patient.Right | | Ventricle: The right ventricle is normal in size and function.Left Atrium: The left | | atrial size is normal.Aortic Valve: The aortic valve was not well visualized. Aortic | | Valve: There is no evidence of aortic regurgitation. Aortic Valve: There is no evidence | | of aortic stenosis.Mitral Valve: The mitral valve is normal. Mitral Valve: There is | | trace mitral regurgitation.Tricuspid Valve: Trace tricuspid regurgitation present. | | Tricuspid Valve: The poor TR signal prevents accurate estimation of pulmonary | | pressures.Pulmonic Valve: The pulmonic valve was not well visualized. Pulmonic Valve: | | Trace pulmonic regurgitation.Pericardium: There is no pericardial effusion. | | Pericardium: No pleural effusion seen.IVC/Hepatic Veins: The IVC is normal size | | (1.5-2.5cm) and collapses >50% with sniff, consistent with central venous pressures of 3 | | mmHg.Aorta: The aortic root and ascending aorta are normal in size.Mass: No mass | | visualizedThrombus: No clot visualizedMEASUREMENTS RA Area: 15.87 cm2Ao | | asc: 3.12 cmAo sinus: 3.47 cmIVC: 1.73 cmEDV(Teich): 55.32 mlIVSd: 1.25 | | cmLVIDd: 3.62 cmLVPWd: 0.99 cmLVOT Diam: 1.99 cm%FS: 42.33 %EF(Teich): 74.27 | | %ESV(Teich): 14.23 mlIVSs: 1.65 cmLVIDs: 2.08 cmLVPWs: 1.40 cmSV(Teich): 41.09 | | mlRVIDd: 3.68 cmLVEF MOD A2C: 66.22 %SV MOD A2C: 42.83 mlLVEF MOD A4C: 65.35 | | %SV MOD A4C: 51.30 mlEF Biplane: 65.41 %LVEDV MOD BP: 71.59 mlLVESV MOD BP: | | 24.76 mlLVEDV MOD A2C: 64.68 mlLVLd A2C: 7.87 cmLVEDV MOD A4C: 78.50 mlLVLd A4C: | | 8.00 cmLVESV MOD A2C: 21.84 mlLVLs A2C: 5.96 cmLVESV MOD A4C: 27.20 mlLVLs A4C: | | 5.53 cmLAESV(A-L): 47.06 mlLAESV Index (A-L): 26.00 ml/m2LAAs A2C: 16.18 [id number] | | A-L A2C: 41.14 mlLALs A2C: 5.40 cmLAAs A4C: 18.51 [id number] A-L A4C: 51.64 | | mlLALs A4C: 5.63 cmTAPSE: 1.80 cmAV maxP.66 mmHgAV meanP.54 mmHgAV Vmax: | | 1.38 m/Monica Vmean: 1.00 m/Monica VTI: 26.68 cmAVA Vmax: 2.35 cm2AVA (VTI): 2.52 | | [id number] Vmax: 0.00 cm2/m2AVAI (VTI): 0.00 cm2/m2LVOT maxP.36 mmHgLVOT meanPG: | | 2.11 mmHgLVSI Dopp: 37.20 ml/m2LVSV Dopp: 67.33 mlLVOT Vmax: 1.04 m/sLVOT Vmean: | | 0.67 m/sLVOT VTI: 21.59 cmMV A Kilo: 1.25 m/sMV DecT: 340.74 msMV E Kilo: 0.78 | | m/sMV E/A Ratio: 0.62 Septal e': 0.05 m/sSeptal E/e': 15.43 Lateral e': 0.07 | | m/sLateral E/e': 10.76 HR: 85.10 BPMPV maxP.84 mmHgPV meanP.23 mmHgPV | | Vmax: 0.98 m/sPV Vmean: 0.72 m/sPV VTI: 19.85 cmRV S': 0.11 m/sSonographer: | | MWAuthenticated by: Imtiaz Mari MDReport Date/Time: 12-08-2018 17:48:59IMPRESSION:1. | | Overall left ventricular systolic function is normal with, an EF between 60 - 65 %.2. | | There is mild concentric left ventricular hypertrophy.3. No regional wall motion | | abnormalities.4. The right ventricle is normal in size and function.5. The left atrial | | size is normal.6. There is no evidence of aortic stenosis.7. There is trace mitral | | regurgitation.8. The poor TR signal prevents accurate estimation of pulmonary | | pressures.9. There is no pericardial effusion. | |MEASUREMENTS | | | |RA Area: 15.87 cm2 | |Ao asc: 3.12 cm | |Ao sinus: 3.47 cm | |IVC: 1.73 cm | |EDV(Teich): 55.32 ml | |IVSd: 1.25 cm | |LVIDd: 3.62 cm | |LVPWd: 0.99 cm | |LVOT Diam: 1.99 cm | |%FS: 42.33 % | |EF(Teich): 74.27 % | |ESV(Teich): 14.23 ml | |IVSs: 1.65 cm | |LVIDs: 2.08 cm | |LVPWs: 1.40 cm | |SV(Teich): 41.09 ml | |RVIDd: 3.68 cm | |LVEF MOD A2C: 66.22 % | |SV MOD A2C: 42.83 ml | |LVEF MOD A4C: 65.35 % | |SV MOD A4C: 51.30 ml | |EF Biplane: 65.41 % | |LVEDV MOD BP: 71.59 ml | |LVESV MOD BP: 24.76 ml | |LVEDV MOD A2C: 64.68 ml | |LVLd A2C: 7.87 cm | |LVEDV MOD A4C: 78.50 ml | |LVLd A4C: 8.00 cm | |LVESV MOD A2C: 21.84 ml | |LVLs A2C: 5.96 cm | |LVESV MOD A4C: 27.20 ml | |LVLs A4C: 5.53 cm | |LAESV(A-L): 47.06 ml | |LAESV Index (A-L): 26.00 ml/m2 | |LAAs A2C: 16.18 cm2 | |LAESV A-L A2C: 41.14 ml | |LALs A2C: 5.40 cm | |LAAs A4C: 18.51 cm2 | |LAESV A-L A4C: 51.64 ml | |LALs A4C: 5.63 cm | |TAPSE: 1.80 cm | |AV maxP.66 mmHg | |AV meanP.54 mmHg | |AV Vmax: 1.38 m/s | |AV Vmean: 1.00 m/s | |AV VTI: 26.68 cm | |QUANG Vmax: 2.35 cm2 | |QUANG (VTI): 2.52 cm2 | |AVAI Vmax: 0.00 cm2/m2 | |AVAI (VTI): 0.00 cm2/m2 | |LVOT maxP.36 mmHg | |LVOT meanP.11 mmHg | |LVSI Dopp: 37.20 ml/m2 | |LVSV Dopp: 67.33 ml | |LVOT Vmax: 1.04 m/s | |LVOT Vmean: 0.67 m/s | |LVOT VTI: 21.59 cm | |MV A Kilo: 1.25 m/s | |MV DecT: 340.74 ms | |MV E Kilo: 0.78 m/s | |MV E/A Ratio: 0.62 | |Septal e': 0.05 m/s | |Septal E/e': 15.43 | |Lateral e': 0.07 m/s | |Lateral E/e': 10.76 | |HR: 85.10 BPM | |PV maxP.84 mmHg | |PV meanP.23 mmHg | |PV Vmax: 0.98 m/s | |PV Vmean: 0.72 m/s | |PV VTI: 19.85 cm | |RV S': 0.11 m/s | | | |Transit Manager: MW | |Authenticated by: Imtiaz Mari MD | |Report Date/Time: 12-08-2018 17:48:59 | | | |IMPRESSION: | |1. Overall left ventricular systolic function is normal with, an EF between 60 - 65 %. | |2. There is mild concentric left ventricular hypertrophy. | |3. No regional wall motion abnormalities. | |4. The right ventricle is normal in size and function. | |5. The left atrial size is normal. | |6. There is no evidence of aortic stenosis. | |7. There is trace mitral regurgitation. | |8. The poor TR signal prevents accurate estimation of pulmonary pressures. | |9. There is no pericardial effusion. | + + + + + + + | Performing | Address | City/State/Zipcode | Phone Number | | Organization | | | | + + + + + | [facility] | [address] | [place] [address] | | + + + + + PERITONEAL DIALYSIS (12/08/2018 11:45 AM) + + + | Narrative | Performed At | + + + | BALJIT Guerrier 12/08/2018 2:18 PM Hospital | | | Problem List: Principal Problem: Peritonitis (HCC) Active | | | Problems: Abdominal pain ESRD on peritoneal dialysis | | | Leukocytosis The patient says that she feels 'ok' | | | today. she denies any chest pain, dyspnea . her urine output is | | | noted. Admitted for Possible peritonitis She presented with | | | stomach pain x 4 days, nausea and vomiting worsening, low po intake | | | for a few days. PD fluid yesterday was clear with some fibrin, no | | | blood or cloudiness. Little dizziness, no loc, no falls. Home | | | PD Rx is: 6 fills, 2L, 1.5hrs each. 1.5% last night (12/06). UF | | | from PD today is: 800mL The following portions of the patient's | | | history were reviewed and updated as appropriate: laboratory data, | | | radiologic studies, allergies, current medications, and problem | | | list. Scheduled Meds: | | | amLODIPine 2.5 mg Oral Nightly | | | cefTAZidime 500 mg Intravenous Daily | | | ergocalciferol 50,000 Units Oral Weekly | | | heparin (porcine) 5000 unit/0.5mL 5,000 Units Subcutaneous 2 | | | times per day | | | sevelamer 1,600 mg Oral TID WC Continuous Infusions: | | | lactated ringers 75 mL/hr at 12/08/18 0125 PRN | | | Meds:.acetaminophen OR acetaminophen, calcium carbonate, | | | HYDROcodone-acetaminophen, LORazepam, morphine, ondansetron OR | | | ondansetron, polyethylene glycol, zolpidem BP 137/86 (BP Location: | | | Left upper arm) | Pulse 91 | Temp 98.5 F (36.9 C) | | | (Oral) | Resp 18 | Wt 79.5 kg (175 lb 3.2 oz) | SpO2 | | | 98% | BMI 32.04 kg/m General appearance: Pleasant, not in | | | acute distress. Lungs: Clear to auscultation. There are no | | | wheezes. Heart: Regular rate and rhythm without any rub, gallop. | | | no murmur. Abdominal exam: Soft and tender with normal bowel | | | sounds. Extremities: Warm to touch with no leg edema. There is | | | no cyanosis or clubbing. Neurological: Awake, alert, and | | | oriented to time, place, and person. Normal gross motor | | | power. There is no asterixis. Access : PD cath in place, site is | | | benign Lab Results Component Value Date BUN 35 (H) | | | 12/08/2018 CREATININE 13.4 (H) 12/08/2018 EGFR 3 (L) 12/08/2018 | | | NA 138 12/08/2018 K 3.1 (L) 12/08/2018 CL 95 (L) 12/08/2018 | | | CO2 25 12/08/2018 CA 8.1 (L) 12/08/2018 PHOS 6.1 (H) | | | 12/08/2018 MG 3.1 (H) 12/08/2018 ALB 4.9 12/07/2018 HGB 10.7 | | | (L) 12/08/2018 I/O last 3 completed shifts: In: 1752 | | | [P.O.:600; I.V.:1052; IV Piggyback:100] Out: 177 [Other:177] | | | Assessment: Ms. Oconnor is a 38 y.o. female patient with ESRD, PD. | | | Admitted for Possible peritonitis Anemia of ESRD hypermag | | | hyperphos hypoK Recommendations: Potassium 40mEq po x 1 dose | | | today Abx per ID team No acute need for ANGELA Protein supplements | | | stressed Low phos in diet & use of Phos binders stressed Strict I/O | | | and Daily Weights Encourage IS Plan discharge tomorrow We | | | discussed the case with the primary team at the time of this | | | encounter. BALJIT Guerrier | | + + + Troponin I (12/08/2018 6:03 AM) + + + + + | Component | Value | Ref Range | Performed At | + + + + + | TROPONIN I | 0.026Comment: 0.04 | 0.00 - 0.04 ng/mL | [facility] | | | ng/mL or | | | | | less Nega | | | | | tive, repeat testing in | | | | | four to six hour if | | | | | clinically indicted0.05 | | | | | to 0.77 | | | | | ng/mL Jazmine | | | | | picious for myocardial | | | | | injury. Serial | | | | | measurements may be | | | | | necessary to confirm or | | | | | exclude the diagnosis of | | | | | acute coronary | | | | | syndrome. Repeat testing | | | | | in four to six hours if | | | | | indicated.0.78 or | | | | | greater | | | | | ng/mL Consistent | | | | | with myocardial injury. | | | | | Clinical and laboratory | | | | | correlation recommended. | | | | | NOTE NEW REFERENCE | | | | | RANGETesting performed | | | | | at [facility];[address] [place] [address] | | | | | Blvd;[place] [address] | | | + + + + + + + | Specimen | + + | Blood | + + + + + + + | Performing | Address | City/State/Zipcode | Phone Number | | Organization | | | | + + + + + | [facility] | [address] | [place] [address] | | + + + + + Phosphorus (12/08/2018 6:03 AM) + + + + + | Component | Value | Ref Range | Performed At | + + + + + | PHOSPHORUS | 6.1 (H)Comment: Testing | 2.3 - 4.8 mg/dL | [facility] | | | performed at [facility], [address] | | LABORATORY | | | [address], | | | | | [place] [address] | | | + + + + + + + | Specimen | + + | Blood | + + + + + + + | Performing | Address | City/State/Zipcode | Phone Number | | Organization | | | | + + + + + | [facility] | [address] | [place] [address] | [phone] | | LABORATORY | Any. | | | + + + + + Magnesium (12/08/2018 6:03 AM) + + + + + | Component | Value | Ref Range | Performed At | + + + + + | MAGNESIUM | 3.1 (H)Comment: Testing | 1.7 - 2.4 mg/dL | [facility] | | | performed at [facility], [address] | | LABORATORY | | | [address], | | | | | [place] [address] | | | + + + + + + + | Specimen | + + | Blood | + + + + + + + | Performing | Address | City/State/Zipcode | Phone Number | | Organization | | | | + + + + + | [facility] | [address] | [place] [address] | [phone] | | LABORATORY | [address]vd[address] | | | + + + + + Basic Metabolic Panel (12/08/2018 6:03 AM) + + + + + | Component | Value | Ref Range | Performed At | + + + + + | SODIUM | 138 | 135 - 145 mmol/L | [facility] | | | | | LABORATORY | + + + + + | POTASSIUM | 3.1 (L) | 3.5 - 4.9 mmol/L | [facility] | | | | | LABORATORY | + + + + + | CHLORIDE | 95 (L) | 99 - 109 mmol/L | [facility] | | | | | LABORATORY | + + + + + | CO2 | 25 | 23 - 32 mmol/L | [facility] | | | | | LABORATORY | + + + + + | ANION GAP AGAP | 21 (H) | 5 - 20 mmol/L | [facility] | | | | | LABORATORY | + + + + + | GLUCOSE | 113 (H) | 65 - 99 mg/dL | [facility] | | | | | LABORATORY | + + + + + | BUN | 35 (H) | 8 - 25 mg/dL | [facility] | | | | | LABORATORY | + + + + + | CREATININE | 13.4 (H) | 0.50 - 1.00 mg/dL | [facility] | | | | | LAB[facility]ORY | + + + + + | BUN/CREAT | 3 | | [facility] | | | | | LAB[facility]ATORY | + + + + + | CALCIUM | 8.1 (L) | 8.5 - 10.5 mg/dL | [facility] | | | | | LABORATORY | + + + + + | EGFR | 3 (L)Comment: GFR <60: | >60 mL/min/1.73m2 | [facility] | | | CHRONIC KIDNEY DISEASE, | [...] | | | | | performed at [facility], [address] | | | | | [facility], | | | | | [place] [address] | | | + + + + + + + | Specimen | + + | Blood | + + + + + + + | Performing | Address | City/State/Zipcode | Phone Number | | Organization | | | | + + + + + | [facility] | [address] | [place] [address] | [phone] | | LABORATORY | Any. | | | + + + + + CBC W/Auto Diff (Reflex to Manual) (12/08/2018 6:03 AM) + + + + + | Component | Value | Ref Range | Performed At | + + + + + | WBC | 18.78 (H) | 3.80 - 11.00 K/uL | [facility] | | | | | LABORATORY | + + + + + | RBC | 3.76 | 3.70 - 5.10 M/uL | [facility] | | | | | LABORATORY | + + + + + | HGB | 10.7 (L) | 11.3 - 15.5 g/dL | [facility] | | | | | LABORATORY | + + + + + | HCT | 32.9 (L) | 34.0 - 46.0 % | [facility] | | | | | LABORATORY | + + + + + | MCV | 87.4 | 80.0 - 100.0 fl | [facility] | | | | | LABORATORY | + + + + + | MCH | 28.5 | 27.0 - 34.0 pg | [facility] | | | | | LABORATORY | + + + + + | MCHC | 32.7 | 32.0 - 35.5 g/dL | [facility] | | | | | LABORATORY | + + + + + | RDW SD | 44.6 | 37 - 53 fl | [facility] | | | | | LABORATORY | + + + + + | PLT | 376 | 150 - 400 K/uL | [facility] | | | | | LABORATORY | + + + + + | MPV | 8.1 | fl | [facility] | | | | | LABORATORY | + + + + + | DIFF TYPE | AUTOMATED | | [facility] | | | | | LABORATORY | + + + + + | NEUTROPHILS | 84.88 | % | [facility] | | | | | LABORATORY | + + + + + | LYMPHOCYTES | 10.02 | % | [facility] | | | | | LABORATORY | + + + + + | MONOCYTES | 4.59 | % | [facility] | | | | | LABORATORY | + + + + + | EOSINOPHILS | 0.13 | % | [facility] | | | | | LABORATORY | + + + + + | BASOPHILS | 0.38 | % | [facility] | | | | | LABORATORY | + + + + + | NEUTROPHILS ABS | 15.94 (H) | 1.90 - 7.40 K/uL | [facility] | | | | | LABORATORY | + + + + + | LYMPHOCYTES ABS | 1.88 | 1.00 - 3.90 K/uL | [facility] | | | | | LABORATORY | + + + + + | MONOCYTES ABS | 0.86 (H) | 0.00 - 0.80 K/uL | [facility] | | | | | LABORATORY | + + + + + | EOSINOPHILS ABS | 0.02 | 0.00 - 0.50 K/uL | [facility] | | | | | LABORATORY | + + + + + | BASOPHILS ABS | 0.07Comment: Testing | 0.00 - 0.10 K/uL | [facility] | | | performed at [facility], [address] | | LABORATORY | | | [address], | | | | | [place] [address] | | | + + + + + + + | Specimen | + + | Blood | + + + + + + + | Performing | Address | City/State/Zipcode | Phone Number | | Organization | | | | + + + + + | [facility] | [address] | [place] [address] | [phone] | | LABORATORY | [address]vd[address] | | | + + + + + MRSA by PCR (12/08/2018 1:18 AM) + + + + + | Component | Value | Ref Range | Performed At | + + + + + | SOURCE | NARES(NOSE) | | [facility] | + + + + + | MRSA PCR | NEGATIVEComment: Testing | NEGATIVE | [facility] | | | performed at [facility];[address];[place] | | | | | [address] | | | + + + + + + + | Specimen | + + | Nasopharyngeal - | | Nares(Nose) | + + + + + + + | Performing | Address | City/State/Zipcode | Phone Number | | Organization | | | | + + + + + | [facility] | [address] | [place] [address] | | + + + + + Blood Culture Set 2 (12/07/2018 11:53 PM) + + + + + | Component | Value | Ref Range | Performed At | + + + + + | Specimen Description | BLOOD | | [facility] | | | | | LABORATORY | + + + + + | SPECIAL REQUESTS | LAC | | [facility] | + + [...] | + + + + + | [facility] | [address] | [place] [address] | [phone] | | LABORATORY | Any. | | | + + + + + | [facility] | [address] | [place] [address] | | + + + + + Troponin I (12/07/2018 11:53 PM) + + + + + | Component | Value | Ref Range | Performed At | + + + + + | TROPONIN I | 0.026Comment: 0.04 | 0.00 - 0.04 ng/mL | [facility] | | | ng/mL or | | | | | less Nega | | | | | tive, repeat testing in | | | | | four to six hour if | | | | | clinically indicted0.05 | | | | | to 0.77 | | | | | ng/mL Jazmine | | | | | picious for myocardial | | | | | injury. Serial | | | | | measurements may be | | | | | necessary to confirm or | | | | | exclude the diagnosis of | | | | | acute coronary | | | | | syndrome. Repeat testing | | | | | in four to six hours if | | | | | indicated.0.78 or | | | | | greater | | | | | ng/mL Consistent | | | | | with myocardial injury. | | | | | Clinical and laboratory | | | | | correlation recommended. | | | | | NOTE NEW REFERENCE | | | | | RANGETesting performed | | | | | at [facility] [address] | [address];[place] [address] | | | + + + + + + + | Specimen | + + | Blood | + + + + + + + | Performing | Address | City/State/Zipcode | Phone Number | | Organization | | | | + + + + + | [facility] | [address] | [place] [address] | | + + + + + Body fluid cell count (12/07/2018 8:00 PM) + + + + + | Component | Value | Ref Range | Performed At | + + + + + | FLUID TYPE | PERITONEAL FLUID | | [facility] | + + + + + | COLOR | COLORLESS | | [facility] | + + + + + | APPEARANCE | SLIGHTLY HAZY | | [facility] | + + + + + | RBC'S | 10,000 | /mm3 | [facility] | + + + + + | TOTAL NUCLEATED | 151 | /mm3 | [facility] | | CELLS | | | | + + + + + | NEUTROPHILS | 69 | % | [facility] | + + + + + | LYMPHOCYTES | 5 | % | [facility] | + + + + + | MONOCYTES/MACROPHAGE | 26 | % | [facility] | | S | | | | + + + + + | CELLS COUNTED | 100Comment: Testing | | [facility] | | | performed at [facility];[address];[place], [place] | | | | | [address] | | | + + + + + + + | Specimen | + + | Other - Peritoneal | | [facility] | + + + + + + + | Performing | Address | City/State/Zipcode | Phone Number | | Organization | | | | + + + + + | [facility] | [address] | [place] [address] | | + + + + + Fluid culture w/gram stain (12/07/2018 4:59 PM) + + + + + | Component | Value | Ref Range | Performed At | + + + + + | Specimen Description | PERITONEAL FLUID | | [facility] | | | | | LABORATORY | + + + + + | GRAM STAIN | NO ORGANISMS SEEN | | [facility] | + + + + + [...] + + + | [facility] | [address] | [place] [address] | [phone] | | LABORATORY | [address]vd[address] | | | + + + + + | [facility] | [address] | [place] [address] | | + + + + + CT abdomen pelvis without contrast (12/07/2018 4:44 PM) + + + | Impressions | Performed At | + + + | 1. The intrinsically complex and/or dense 4.5 cm mass arising | [facility] | | from the right ovary or adnexa is stable but could be a source for | RADIOLOGY | | ongoing symptoms 2. Stable renal atrophy and likely peritoneal | | | dialysis catheter, without adjacent fluid collection or hemorrhage | | | along the course of the catheter 3. No extraluminal lesion, | | | dilatation or obstruction but non masslike wall thickening of the | | | proximal colon is demonstrated. No high-grade adjacent inflammatory | | | changes or fluid collection. Still, low-grade proximal colitis is | | | possible, and there is diverticulosis Signed by: Santos Gil | | | Sign Date/Time: 12/07/2018 4:56 PM | | + + + + + + | Narrative | Performed At | + + + | CT ABDOMEN AND PELVIS WITHOUT CONTRAST CLINICAL INFORMATION: | [facility] | | Abdominal pain. COMPARISON: CT ABDOMEN PELVIS WO CONTRAST | RADIOLOGY | | (06/05/2018); US PELVIS WITH ENDOVAGINAL (04/09/2018); CT ABDOMEN | | | PELVIS W CONTRAST (03/16/2018); PROCEDURE: Axial images through the | | | abdomen and pelvis. Multiplanar reconstructions. At least one of the | | | following CT dose optimization techniques were used: Automated | | | exposure control; Adjustment of mA and/or kV according to patient | | | size; Use of iterative reconstruction technique. FINDINGS: LUNG | | | BASES: No significant pulmonary abnormality. No pleural effusion or | | | pneumothorax. ABDOMEN Liver and Biliary: Solid organ evaluation | | | suboptimal without contrast. No visible abnormality in the liver or | | | gallbladder. Pancreas-normal to noncontrast technique Spleen: | | | Normal. Adrenal glands: Stable adenoma in the left adrenal gland | | | measuring about 12 mm. No new lesion Kidneys: Atrophic on both | | | sides, without solid lesion or stone. No hydronephrosis. No | | | adjacent inflammatory changes ABDOMEN AND PELVIS Bowel: No small | | | bowel or colonic dilation or adjacent inflammation. No appendiceal | | | dilation or inflammation. Diverticulosis without evidence of | | | diverticulitis. There is some non high-grade wall thickening of the | | | proximal large bowel, from about the ileo cecum to the hepatic | | | flexure Vessels: Abdominal aorta normal in caliber. No | | | aneurysm. Veins not assessed without contrast. Lymph Nodes: No | | | adenopathy. Peritoneum and Retroperitoneum: No ascites or free air. | | | No significant retroperitoneal abnormality. PELVIS Genitourinary: A | | | complex mass with some Dense features in the right adnexa and/or | | | comprising the right ovary. About 4.5 cm in size. Stable when | | | compared to the prior examination from May of last year Urinary | | | bladder is not distended The pelvic catheter is intact, without | | | evidence of inflammation or fluid collection nearby BODY WALL Soft | | | Tissues: No bowel or inflamed fat containing hernia, mass or | | | hemorrhage. Bones: No acute fracture or vertebral end plate | | | destruction. No lytic or blastic lesion. | | + + + + + | Procedure Note | + + | Endy, Rad Results In - 12/07/2018 4:[address] ABDOMEN AND PELVIS WITHOUT CONTRAST | | CLINICAL INFORMATION: | | Abdominal pain. | | COMPARISON: | | CT ABDOMEN PELVIS WO CONTRAST (06/05/2018); US PELVIS WITH ENDOVAGINAL | | (04/09/2018); CT ABDOMEN PELVIS W CONTRAST (03/16/2018); | | PROCEDURE: | | Axial images through the abdomen and pelvis. Multiplanar | | reconstructions. | | At least one of the following CT dose optimization techniques were | | used: Automated exposure control; Adjustment of mA and/or kV according | | to patient size; Use of iterative reconstruction technique. | | FINDINGS: | | LUNG BASES: No significant pulmonary abnormality. No pleural effusion | | or pneumothorax. | | ABDOMEN | | Liver and Biliary: Solid organ evaluation suboptimal without contrast. | | No visible abnormality in the liver or gallbladder. | | Pancreas-normal to noncontrast technique | | Spleen: Normal. | | Adrenal glands: Stable adenoma in the left adrenal gland measuring | | about 12 mm. No new lesion | | Kidneys: Atrophic on both sides, without solid lesion or stone. No | | hydronephrosis. No adjacent inflammatory changes | | ABDOMEN AND PELVIS | | Bowel: No small bowel or colonic dilation or adjacent inflammation. No | | appendiceal dilation or inflammation. Diverticulosis without evidence | | of diverticulitis. There is some non high-grade wall thickening of the | | proximal large bowel, from about the ileo cecum to the hepatic flexure | | Vessels: Abdominal aorta normal in caliber. No aneurysm. Veins not | | assessed without contrast. | | Lymph Nodes: No adenopathy. | | Peritoneum and Retroperitoneum: No ascites or free air. No significant | | retroperitoneal abnormality. | | PELVIS | | Genitourinary: A complex mass with some Dense features in the right | | adnexa and/or comprising the right ovary. About 4.5 cm in size. | | Stable when compared to the prior examination from May of last year | | Urinary bladder is not distended | | The pelvic catheter is intact, without evidence of inflammation or | | fluid collection nearby | | BODY WALL | | Soft Tissues: No bowel or inflamed fat containing hernia, mass or | | hemorrhage. | | Bones: No acute fracture or vertebral end plate destruction. No lytic | | or blastic lesion. | | IMPRESSION: | | 1. The intrinsically complex and/or dense 4.5 cm mass arising from the | | right ovary or adnexa is stable but could be a source for ongoing | | symptoms | | 2. Stable renal atrophy and likely peritoneal dialysis catheter, | | without adjacent fluid collection or hemorrhage along the course of the | | catheter | | 3. No extraluminal lesion, dilatation or obstruction but non masslike | | wall thickening of the proximal colon is demonstrated. | | No high-grade adjacent inflammatory changes or fluid collection. | | Still, low-grade proximal colitis is possible, and there is | | diverticulosis | | Signed by: Santos Gil | | Sign Date/Time: 12/07/2018 4:56 PM | + + + + + + + | Performing | Address | City/State/Zipcode | Phone Number | | Organization | | | | + + + + + | [facility] | [address] | [place] [address] | | + + + + + XR Chest PA and Lateral (12/07/2018 4:28 PM) + + + | Impressions | Performed At | + + + | Negative chest. Signed by: Zev Conner Date/Time: | [facility] | | 12/07/2018 4:36 PM | RADIOLOGY | + + + + + + | Narrative | Performed At | + + + | CHEST TWO VIEWS CLINICAL INFORMATION: Chest pain. COMPARISON: XR | [facility] | | CHEST 2 VIEW (06/05/2018); END ESOPHOGOGASTRODUODENOSCOPY IMAGING | RADIOLOGY | | (09/10/2017); XR ABDOMEN ACUTE SERIES (06/04/2017); FINDINGS: Heart, | | | lungs and vessels normal. No pneumothorax, pleural effusion or | | | adenopathy. No significant bone abnormality. | | + + + + + | Procedure Note | + + | Endy, Rad Results In - 12/07/2018 4:40 PM PST CHEST TWO VIEWS | | CLINICAL INFORMATION: | | Chest pain. | | COMPARISON: | | XR CHEST 2 VIEW (06/05/2018); END ESOPHOGOGASTRODUODENOSCOPY IMAGING | | (09/10/2017); XR ABDOMEN ACUTE SERIES (06/04/2017); | | FINDINGS: | | Heart, lungs and vessels normal. No pneumothorax, pleural effusion or | | adenopathy. No significant bone abnormality. | | IMPRESSION: | | Negative chest. | | Signed by: Zev Conner | | Sign Date/Time: 12/07/2018 4:36 PM | + + + + + + + | Performing | Address | City/State/Zipcode | Phone Number | | Organization | | | | + + + + + | [facility] | [address] | [place] [address] | | + + + + + EKG 12 LEAD UNIT PERFORMED (12/07/2018 3:45 PM) + + + + + | Component | Value | Ref Range | Performed At | + + + + + | Ventricular Rate | 115 | BPM | [facility] | + + + + + | Atrial Rate | 115 | BPM | [facility] | + + + + + | P-R Interval | 148 | ms | [facility] | + + + + + | QRS Duration | 74 | ms | [facility] | + + + + + | Q-T Interval | 346 | ms | [facility] | + + + + + | QTC Calculation | 478 | ms | [facility] | | (Bezet) | | | | + + + + + | Calculated P [place] | 47 | degrees | [facility] | + + + + + | Calculated R [place] | 114 | degrees | [facility] | + + + + + | Calculated T [place] | 68 | degrees | [facility] | + + + + + | Diagnosis | Sinus tachycardiaLeft | | [facility] | | | posterior fascicular | | | | | blockNonspecific ST and | | | | | T wave | | | | | abnormalityAbnormal | | | | | ECGWhen compared with | | | | | ECG of 05-JUN-2018 | | | | | 01:17,Vent. rate has | | | | | increased BY 55 | | | | | BPMQRS axis Shifted | | | | | rightT wave inversion no | | | | | longer evident in | | | | | Anterior leadsThis ECG | | | | | contains Unconfirmed | | | | | Interpretation | | | | | Statements. See ED | | | | | Record for Physician | | | | | Interpretation. | | | | | Confirmed by MUSE READ | | | | | ONLY, -COMPUTER ([id number]), | | | | | desk editor Rashel Polanco | | | | | Rogelio ([id number]) on 12/08/2018 | | | | | 2:29:38 AM | | | + + + + + + + + + + | Performing | Address | City/State/Zipcode | Phone Number | | Organization | | | | + + + + + | [facility] | [address] | [place] [address] | | + + + + + Critical Care (12/07/2018 3:42 PM) + + + | Narrative | Performed At | + + + | Fito Crespo MD 12/07/2018 6:18 PM Critical Care | | | Performed by: FITO CRESPO Authorized by: FITO CRESPO | | | Critical care provider statement: Critical care time | | | (minutes): 35 Critical care time was exclusive | | | of: Separately billable procedures and treating other patients | | | Critical care was necessary to treat or prevent imminent or | | | life-threatening deterioration of the following conditions: Renal | | | failure and sepsis Critical care was time spent personally by | | | me on the following activities: Development of treatment plan | | | with patient or surrogate, discussions with consultants, discussions | | | with primary provider, evaluation of patient's response to | | | treatment, examination of patient, obtaining history from patient or | | | surrogate, ordering and performing treatments and interventions, | | | ordering and review of laboratory studies, pulse oximetry, | | | re-evaluation of patient's condition, review of old charts and | | | ordering and review of radiographic studies | | + + + Phosphorus (12/07/2018 3:30 PM) + + + + + | Component | Value | Ref Range | Performed At | + + + + + | PHOSPHORUS | 5.7 (H)Comment: Testing | 2.3 - 4.8 mg/dL | [facility] | | | performed at [facility] | | [address];[place] | | | | | [address] | | | + + + + + + + | Specimen | + + | Blood | + + + + + + + | Performing | Address | City/State/Zipcode | Phone Number | | Organization | | | | + + + + + | [facility] | [address] | [facility] [place] [address] | | + + + + + Magnesium (12/07/2018 3:30 PM) + + + + + | Component | Value | Ref Range | Performed At | + + + + + | MAGNESIUM | 3.2 (H)Comment: Testing | 1.7 - 2.4 mg/dL | [facility] | | | performed at [facility] [place] | | | [address];[place] | | | | | [address] | | | + + + + + + + | Specimen | + + | Blood | + + + + + + + | Performing | Address | City/State/Zipcode | Phone Number | | Organization | | | | + + + + + | [facility] | [address] | [place] [address] | | + + + + + BNP (12/07/2018 3:30 PM) + + + + + | Component | Value | Ref Range | Performed At | + + + + + | BRAIN NATRIURETIC | 50.36Comment: Testing | 0 - 100 pg/mL | [facility] | | PEPTIDE | performed at [facility] | | | | | [address];[place] | | | | | [address] | | | + + + + + + + | Specimen | + + | Blood | + + + + + + + | Performing | Address | City/State/Zipcode | Phone Number | | Organization | | | | + + + + + | [facility] | [address] | [place] [address] | | + + + + + D-dimer, quantitative (12/07/2018 3:30 PM) + + + + + | Component | Value | Ref Range | Performed At | + + + + + | D DIMER, | 0.34Comment: Testing | 0.19 - 0.50 mg/L FEU | [facility] | | QUANTITATIVE | performed at [facility];[place] | | | | | [address] | | | + + + + + + + | Specimen | + + | Blood | + + + + + + + | Performing | Address | City/State/Zipcode | Phone Number | | Organization | | | | + + + + + | [facility] | [address] | [place] [address] | | + + + + + Lipase (12/07/2018 3:30 PM) + + + + + | Component | Value | Ref Range | Performed At | + + + + + | LIPASE | 51Comment: NOTE NEW | 12 - 53 U/L | [facility] | | | REFERENCE RANGETesting | | | | | performed at [facility] | | | | | [address] [employer];[place] | | | | | [address] | | | + + + + + + + | Specimen | + + | Blood | + + + + + + + | Performing | Address | City/State/Zipcode | Phone Number | | Organization | | | | + + + + + | [facility] | [address] | [place] [address] | | + + + + + C-reactive protein (12/07/2018 3:30 PM) + + + + + | Component | Value | Ref Range | Performed At | + + + + + | CRP | 2.5 (H)Comment: Testing | <0.5 mg/dL | [facility] | | | performed at [facility];[place] | | | | | [address] | | | + + + + + + + | Specimen | + + | Blood | + + + + + + + | Performing | Address | City/State/Zipcode | Phone Number | | Organization | | | | + + + + + | [facility] | [address] | [place] [address] | | + + + + + Troponin I (12/07/2018 3:30 PM) + + + + + | Component | Value | Ref Range | Performed At | + + + + + | TROPONIN I | 0.026Comment: Testing | 0.00 - 0.04 ng/mL | [facility] | | | performed at [facility];[address];[place], [place] | | | | | [id number] ON 12/25 | | | | | AT 1142: PREVIOUSLY | | | | | REPORTED .026 | | | | | 0.04 ng/mL or | | | | | less Nega | | | | | tive, repeat testing in | | | | | four to six hour if | | | | | clinically indicted 0.05 | | | | | to 0.77 | | | | | ng/mL Jazmine | | | | | picious for myocardial | | | | | injury. Serial | | | | | measurements may be | | | | | necessary to confirm or | | | | | exclude the diagnosis of | | | | | acute coronary | | | | | syndrome. Repeat testing | | | | | in four to six hours if | | | | | indicated. 0.78 or | | | | | greater | | | | | ng/mL Consistent | | | | | with myocardial injury. | | | | | Clinical and laboratory | | | | | correlation | | | | | recommended. NOTE | | | | | NEW REFERENCE RANGE | | | + + + + + + + | Specimen | + + | Blood | + + + + + + + | Performing | Address | City/State/Zipcode | Phone Number | | Organization | | | | + + + + + | [facility] | [address] | [place] [address] | | + + + + + Cardiac Panel (12/07/2018 3:30 PM) + + + + + | Component | Value | Ref Range | Performed At | + + + + + | WBC | 26.34 (H) | 3.80 - 11.00 K/uL | [facility] | + + + + + | RBC | 4.73 | 3.70 - 5.10 M/uL | [facility] | + + + + + | HGB | 13.6 | 11.3 - 15.5 g/dL | [facility] | + + + + + | HCT | 40.9 | 34.0 - 46.0 % | [facility] | + + + + + | MCV | 86.4 | 80.0 - 100.0 fl | [facility] | + + + + + | MCH | 28.8 | 27.0 - 34.0 pg | [facility] | + + + + + | MCHC | 33.4 | 32.0 - 35.5 g/dL | [facility] | + + + + + | RDW SD | 45.1 | 37 - 53 fl | [facility] | + + + + + | PLT | 484 (H) | 150 - 400 K/uL | [facility] | + + + + + | MPV | 8.0 | fl | [facility] | + + + + + | DIFF TYPE | MANUAL | | [facility] | + + + + + | Neutrophils Manual | 78 | % | [facility] | + + + + + | Bands | 10 | % | [facility] | + + + + + | METAMYELOCYTES | 1 | % | [facility] | + + + + + | Lymphocytes Manual | 9 | % | [facility] | + + + + + | Monocytes Manual | 2 | % | [facility] | + + + + + | Neutrophils Absolute | 20.55 (H) | 1.90 - 7.40 K/uL | [facility] | + + + + + | Bands Manual | 2.63 (H) | 0.00 - 0.20 K/uL | [facility] | + + + + + | Metamyelocytes | 0.26 (H) | 0.00 K/uL | [facility] | | Absolute | | | | + + + + + | Lymphocytes Absolute | 2.37 | 1.00 - 3.90 K/uL | [facility] | + + + + + | Monocytes Absolute | 0.53 | 0.00 - 0.80 K/uL | [facility] | + + + + + | Platelet Estimate | INCREASED | | [facility] | + + + + + | MORPHOLOGY | RBC AND PLT MORPHOLOGY | | [facility] | | | APPEAR NORMAL | | | + + + + + | SODIUM | 141 | 135 - 145 mmol/L | [facility] | + + + + + | POTASSIUM | 3.9 | 3.5 - 4.9 mmol/L | [facility] | + + + + + | CHLORIDE | 96 (L) | 99 - 109 mmol/L | [facility] | + + + + + | CO2 | 25 | 23 - 32 mmol/L | [facility] | + + + + + | ANION GAP AGAP | 24 (H) | 5 - 20 mmol/L | [facility] | + + + + + | GLUCOSE | 131 (H) | 65 - 99 mg/dL | [facility] | + + + + + | BUN | 35 (H) | 8 - 25 mg/dL | [facility] | + + + + + | CREATININE | 13.70 (H) | 0.50 - 1.00 mg/dL | [facility] | + + + + + | BUN/CREAT | 3 | | [facility] | + + + + + | CALCIUM | 9.4 | 8.5 - 10.5 mg/dL | [facility] | + + + + + | TOTAL PROTEIN | 8.7 (H) | 6.3 - 8.2 g/dL | [facility] | + + + + + | Albumin | 4.9 | 3.6 - 5.0 g/dL | [facility] | + + + + + | GLOBULIN | 3.8 | 1.3 - 4.9 g/dL | [facility] | + + + + + | A/G | 1.3 | 1.0 - 2.4 | [facility] | + + + + + | TBIL | 0.2 | 0.1 - 1.5 mg/dL | [facility] | + + + + + | ALK PHOS | 126 (H) | 35 - 115 U/L | [facility] | + + + + + | AST | 15 | 10 - 45 U/L | [facility] | + + + + + | ALT | 11 | 10 - 65 U/L | [facility] | + + + + + | EGFR | 3 (L)Comment: GFR <60: | >60 mL/min/1.73m2 | [facility] | | | CHRONIC KIDNEY DISEASE, [...] IDMS traceable | | | | | equation. | | | + + + + + | CPK | 146 | 30 - 240 U/L | [facility] | + + + + + | INR | 0.9Comment: REFERENCE | | [facility] | | | RANGE:0.9 - | | | | | 1.2 NON-ANTICOAGULATE | | | | | D2.0 - 3.0 ALL OTHER | | | | | THERAPEUTIC | | | | | INDICATIONS2.5 - 3.5 | | | | | MECHANICAL HEART VALVES, | | | | | RECURRENT OR SYSTEMIC | | | | | EMBOLISM | | | + + + + + | APTT | 28 | 23 - 32 seconds | [facility] | + + + + + | MMB | 1.7 | 0.5 - 3.6 ng/mL | [facility] | + + + + + | CK-MB Index | 1.2Comment: CK INDEX | | [facility] | | | INTERPRETATION: | | | | | MMB | | | | | ng/mL & Relative | | | | | IndexNon-AMI | | | | | < or = | | | | | 5.0 N | | | | | AGray Zone | | | | | >5.0 < | | | | | or = | | | | | 4.0AMI | | | | | | | | | | >5.0 | | | | | >4.0Testing | | | | | performed at [facility] | | | | [address];[place] | | | | | [address] | | | + + + + + + + + + + | Performing | Address | City/State/Zipcode | Phone Number | | Organization | | | | + + + + + | [facility] | [address] | [place] [address] | | + + + + + in this encounter Visit Diagnoses + + | Diagnosis | + + | Spontaneous bacterial peritonitis (HCC) | + + | Spontaneous bacterial peritonitis | + + | Bandemia | + + | ESRD on peritoneal dialysis (HCC) | + + | End stage renal disease | + + | Anemia in ESRD (end-stage renal disease) (HCC) | + + | Anemia in chronic kidney disease | + + | Peritonitis due to infected peritoneal dialysis catheter, subsequent encounter (HCC) | + + | Abdominal pain | + + | Abdominal pain, unspecified site | + + | ESRD on peritoneal dialysis | + + | End stage renal disease | + + | Leukocytosis | + + | Leukocytosis, unspecified | + + | Peritonitis (HCC) | + + | Unspecified peritonitis | + + Admitting Diagnoses + + | Diagnosis | + + | Spontaneous bacterial peritonitis (HCC) | + + | Spontaneous bacterial peritonitis | + + | Bandemia | + + | Anemia in ESRD (end-stage renal disease) (HCC) | + + | Anemia in chronic kidney disease | + + | ESRD on peritoneal dialysis (HCC) | + + | End stage renal disease | + + | Peritonitis due to infected peritoneal dialysis catheter, subsequent encounter (HCC) | + + Administered Medications + +--------+---------+------+------+------+ | Medication Order | MAR | Action | Dose | Rate | Site | | | Action | Date | | | | + +--------+---------+------+------+------+ + +---+ | acetaminophen (TYLENOL) | | | suppository 650 mg 650 mg, | | | Rectal, Every 6 Hours PRN, Mild | | | Pain (1-3), Fever, Starting Mon | | | 12/07/18 at 2036 | | + +---+ | | | + +---+ | acetaminophen (TYLENOL) tablet | | | 650 mg 650 mg, Oral, Every 6 | | | Hours PRN, Mild Pain (1-3), | | | Fever, Starting 12/07/18 at | | | 2036 | | + +---+ | | | + +---+ + +-------+ +--------+---+---+ | amLODIPine (NORVASC) tablet 2.5 | Given | | 2.5 mg | | | | mg 2.5 mg, Oral, Nightly, First | | 9 21:18 | | | | | dose on 12/07/18 at 2200 | | PST | | | | + +-------+ +--------+---+---+ +-------+ +--------+---+---+ | Given | | 2.5 mg | | | | | 9 20:38 | | | | | | PST | | | | +-------+ +--------+---+---+ | Given | | 2.5 mg | | | | | 9 21:00 | | | | | | PST | | | | +-------+ +--------+---+---+ +---+---+ | | | +---+---+ + +-------+ +--------+---+---+ | aspirin chewable tablet 324 mg | Given | | 324 mg | | | | 324 mg, Oral, Once, 12/07/18 | | 9 15:48 | | | | | at 1544, For 1 dose | | PST | | | | + +-------+ +--------+---+---+ +---+---+ | | | +---+---+ + +-------+ + +---+---+ | calcium carbonate (TUMS) | Given | | 1,000 mg | | | | chewable tablet 1,000 mg 1,000 | | 9 21:18 | | | | | mg, Oral, Every 6 Hours PRN, | | PST | | | | | Indigestion, Starting 12/07/18 | | | | | | | at 2107 | | | | | | + +-------+ + +---+---+ +-------+ + +---+---+ | Given | | 1,000 mg | | | | | 9 22:59 | | | | | | PST | | | | +-------+ + +---+---+ | Given | | 1,000 mg | | | | | 9 18:54 | | | | | | PST | | | | +-------+ + +---+---+ +---+---+ | | | +---+---+ + +-------+ +--------+---+---+ | cefdinir (OMNICEF) capsule 300 | Given | | 300 mg | | | | mg 300 mg, Oral, Daily, First | | 9 10:24 | | | | | dose on [facility] 12/10/18 at 0900, | | PST | | | | | Indications: Enteritis and | | | | | | | Colitis | | | | | | + +-------+ +--------+---+---+ +---+---+ | | | +---+---+ + +-------+ +-----+--------+---+ | cefOXitin (MEFOXIN) 1 g in | Given | | 1 g | 121.1 | | | sodium chloride (IV) 0.9 % 50 mL | | 9 12:11 | | mL/hr | | | IVPB 1 g, Intravenous, | | PST | | | | | Administer over 30 Minutes, Every | | | | | | | 24 Hours, First dose on Tue | | | | | | | 12/08/18 at 1200 | | | | | | + +-------+ +-----+--------+---+ +-------+ +-----+--------+---+ | Given | | 1 g | 121.1 | | | | 9 12:08 | | mL/hr | | | | PST | | | | +-------+ +-----+--------+---+ +---+---+ | | | +---+---+ + +-------+ +-----+-------+---+ | cefTAZidime (FORTAZ) 1 g in | Given | | 1 g | 100 | | | sodium chloride (IV) 0.9 % 50 mL | | 9 22:23 | | mL/hr | | | IVPB 1 g, Intravenous, | | PST | | | | | Administer over 30 Minutes, | | | | | | | Daily, First dose on Fri12/07/18 | | | | | | | at 2200 | | | | | | + +-------+ +-----+-------+---+ +---+---+ | | | +---+---+ + +-------+ +---------+---+---+ | ergocalciferol (DRISDOL) | Given | | 50,000 | | | | capsule 50,000 Units 50,000 | | 9 09:27 | Units | | | | Units, Oral, Weekly, First dose | | PST | | | | | on 12/08/18 at 0900 | | | | | | + +-------+ +---------+---+---+ +---+---+ | | | +---+---+ + +-------+ +--------+---+---+ | heparin (porcine) 5000 | Given | | 5,000 | | | | unit/0.5mL injection 5,000 Units | | 9 09:38 | Units | | | | 5,000 Units, Subcutaneous, Every | | PST | | | | | 12 Hours Scheduled (2 times per | | | | | | | day), First dose on Fri12/07/18 | | | | | | | at 2100 | | | | | | + +-------+ +--------+---+---+ +-------+ +--------+---+---+ | Given | | 5,000 | | | | | 9 21:00 | Units | | | | | PST | | | | +-------+ +--------+---+---+ | Given | | 5,000 | | | | | 9 10:25 | Units | | | | | PST | | | | +-------+ +--------+---+---+ +---+---+ | | | +---+---+ + +-------+ +--------+---+---+ | heparin (porcine) injection | Given | | 1,000 | | | | 1,000 Units 1,000 Units, | | 9 21:30 | Units | | | | Intraperitoneal, Once In | | PST | | | | | Dialysis, Fri12/07/18 at 2100, | | | | | | | For 1 dose, DIALYSIS | | | | | | + +-------+ +--------+---+---+ +---+---+ | | | +---+---+ + +-------+ +--------+---+-------+ | heparin (porcine) injection | Given | | 1,000 | | Port | | 1,000 Units 1,000 Units, | | 9 18:39 | Units | | | | Intraperitoneal, Once In | | PST | | | | | [facility] 12/08/18 at 1830, | | | | | | | For 1 dose, DIALYSIS | | | | | | + +-------+ +--------+---+-------+ +---+---+ | | | +---+---+ + +-------+ +---------+---+---+ | heparin (porcine) injection | Given | | 15,000 | | | | 15,000 Units 15,000 Units, | | 9 18:30 | Units | | | | Intraperitoneal, Once, Wed | | PST | | | | | 12/09/18 at 1830, For 1 dose, | | | | | | | DIALYSIS | | | | | | + +-------+ +---------+---+---+ +---+---+ | | | +---+---+ + +-------+ + +---+---+ | HYDROcodone-acetaminophen | Given | | 1 tablet | | | | (NORCO) 10-325 MG per tablet 1 | | 9 20:59 | | | | | tablet 1 tablet, Oral, Every 6 | | PST | | | | | Hours PRN, Severe Pain (7-10), | | | | | | | Starting 12/09/18 at 1222 | | | | | | + +-------+ + +---+---+ +---+---+ | | | +---+---+ + +-------+ + +---+---+ | HYDROcodone-acetaminophen | Given | | 1 tablet | | | | (NORCO) 5-325 MG per tablet 1 | | 9 03:18 | | | | | tablet 1 tablet, Oral, Every 6 | | PST | | | | | Hours PRN, Moderate Pain (4-6), | | | | | | | Starting 12/07/18 at 2036 | | | | | | + +-------+ + +---+---+ +-------+ + +---+---+ | Given | | 1 tablet | | | | | 9 12:31 | | | | | | PST | | | | +-------+ + +---+---+ | Given | | 1 tablet | | | | | 9 06:01 | | | | | | PST | | | | +-------+ + +---+---+ +---+---+ | | | +---+---+ + +---------+ +---+ +---+ | lactated ringers infusion at | New Bag | | | 75 mL/hr | | | 75 mL/hr, Intravenous, | | 9 02:41 | | | | | Continuous, Starting 12/07/18 | | PST | | | | | at 2100 | | | | | | + +---------+ +---+ +---+ +---------+ +---+ +---+ | New Bag | | | 75 mL/hr | | | | 9 16:49 | | | | | | PST | | | | +---------+ +---+ +---+ | New Bag | | | 75 mL/hr | | | | 9 04:49 | | | | | | PST | | | | +---------+ +---+ +---+ +---+---+ | | | +---+---+ + +-------+ +------+---+---+ | LORazepam (ATIVAN) tablet 1 mg | Given | | 1 mg | | | | 1 mg, Oral, Every 8 Hours PRN, | | 9 22:29 | | | | | Anxiety, Starting 12/07/18 at | | PST | | | | | 2036 | | | | | | + +-------+ +------+---+---+ +---+---+ | | | +---+---+ + +-------+ +------+---+---+ | metoclopramide (REGLAN) | Given | | 5 mg | | | | injection 5 mg 5 mg, | | 9 13:58 | | | | | Intravenous, Every 8 Hours PRN, | | PST | | | | | Heartburn, Starting 12/09/18 | | | | | | | at 1224 | | | | | | + +-------+ +------+---+---+ +-------+ +------+---+---+ | Given | | 5 mg | | | | | 9 04:47 | | | | | | PST | | | | +-------+ +------+---+---+ +---+---+ | | | +---+---+ + +-------+ +--------+---+---+ | metroNIDAZOLE (FLAGYL) tablet | Given | | 500 mg | | | | 500 mg 500 mg, Oral, Every 12 | | 9 10:24 | | | | | Hours Scheduled (2 times per | | PST | | | | | day), First dose on Nina 12/10/18 | | | | | | | at 0900, Indications: Enteritis | | | | | | | and Colitis | | | | | | + +-------+ +--------+---+---+ +---+---+ | | | +---+---+ + +-------+ +------+---+---+ | morphine (PF) injection 2 mg 2 | Given | | 2 mg | | | | mg, Intravenous, Every 4 Hours | | 9 02:41 | | | | | PRN, Severe Pain (7-10), Starting | | PST | | | | | 12/07/18 at 2111 | | | | | | + +-------+ +------+---+---+ +-------+ +------+---+---+ | Given | | 2 mg | | | | | 9 06:26 | | | | | | PST | | | | +-------+ +------+---+---+ | Given | | 2 mg | | | | | 9 10:30 | | | | | | PST | | | | +-------+ +------+---+---+ +---+---+ | | | +---+---+ + +-------+ +------+---+---+ | morphine (PF) injection 4 mg 4 | Given | | 4 mg | | | | mg, Intravenous, Every 15 Min | | 9 16:46 | | | | | PRN, Pain, greater than 10, | | PST | | | | | Starting 12/07/18 at 1542, For | | | | | | | 5 doses | | | | | | + +-------+ +------+---+---+ +-------+ +------+---+---+ | Given | | 4 mg | | | | | 9 18:12 | | | | | | PST | | | | +-------+ +------+---+---+ | Given | | 4 mg | | | | | 9 19:36 | | | | | | PST | | | | +-------+ +------+---+---+ +---+---+ | | | +---+---+ + +-------+ +--------+---+---+ | nitroGLYCERIN (NITROSTAT) SL | Given | | 0.4 mg | | | | tablet 0.4 mg 0.4 mg, | | 9 15:54 | | | | | Sublingual, Every 5 Min PRN, | | PST | | | | | Chest pain, Starting 12/07/18 | | | | | | | at 1540, For 3 doses | | | | | | + +-------+ +--------+---+---+ +---+---+ | | | +---+---+ + +-------+ +------+---+---+ | ondansetron (ZOFRAN) injection | Given | | 4 mg | | | | 4 mg 4 mg, Intravenous, Every 6 | | 9 22:57 | | | | | Hours PRN, Nausea, Vomiting, | | PST | | | | | Starting 12/07/18 at 2036 | | | | | | + +-------+ +------+---+---+ +-------+ +------+---+---+ | Given | | 4 mg | | | | | 9 06:26 | | | | | | PST | | | | +-------+ +------+---+---+ | Given | | 4 mg | | | | | 9 12:08 | | | | | | PST | | | | +-------+ +------+---+---+ +---+---+ | | | +---+---+ + +-------+ +------+---+---+ | ondansetron (ZOFRAN) injection | Given | | 4 mg | | | | 4 mg 4 mg, Intravenous, Every 4 | | 9 19:42 | | | | | Hours PRN, Nausea, Vomiting, | | PST | | | | | Starting 12/09/18 at 1923 | | | | | | + +-------+ +------+---+---+ +---+---+ | | | +---+---+ + +-------+ +------+---+---+ | ondansetron (ZOFRAN) injection | Given | | 8 mg | | | | 8 mg 8 mg, Intravenous, Once, | | 9 15:46 | | | | | 12/07/18 at 1544, For 1 dose | | PST | | | | + +-------+ +------+---+---+ +---+---+ | | | +---+---+ + +-------+ +------+---+---+ | ondansetron (ZOFRAN) injection | Given | | 8 mg | | | | 8 mg 8 mg, Intravenous, Once, | | 9 18:05 | | | | | 12/07/18 at 1805, For 1 dose | | PST | | | | + +-------+ +------+---+---+ +---+---+ | | | +---+---+ + +-------+ +-------+---+---+ | pantoprazole (PROTONIX) EC | Given | | 40 mg | | | | tablet 40 mg 40 mg, Oral, Once, | | 9 01:15 | | | | | 12/08/18 at 0130, For 1 dose | | PST | | | | + +-------+ +-------+---+---+ +---+---+ | | | +---+---+ + +---------+ +-------+---+---+ | piperacillin-tazobactam (ZOSYN) | New Bag | | 4.5 g | | | | 4-0.5 GM/100ML IVPB 4.5 g 4.5 | | 9 17:06 | | | | | g, Intravenous, Administer over | | PST | | | | | 30 Minutes, Once, 12/07/18 at | | | | | | | 1638, For 1 dose | | | | | | + +---------+ +-------+---+---+ +---+---+ | | | +---+---+ + +-------+ +--------+---+---+ | potassium chloride (K-DUR) CR | Given | | 40 mEq | | | | tablet 40 mEq 40 mEq, Oral, | | 9 12:11 | | | | | Once, 12/08/18 at 1230, For 1 | | PST | | | | | dose | | | | | | + +-------+ +--------+---+---+ +---+---+ | | | +---+---+ + +-------+ +---------+-------+---+ | promethazine (PHENERGAN) IVPB | Given | | 12.5 mg | 100 | | | 12.5 mg 12.5 mg, Intravenous, | | 9 21:00 | | mL/hr | | | Administer over 15 Minutes, Every | | PST | | | | | 6 Hours PRN, Nausea, Vomiting, | | | | | | | Starting 12/09/18 at 1923, | | | | | | | When ordered with ondansetron, | | | | | | | use promethazine as second | | | | | | | treatment choice. | | | | | | + +-------+ +---------+-------+---+ +-------+ +---------+-------+---+ | Given | | 12.5 mg | 100 | | | | 9 10:44 | | mL/hr | | | | PST | | | | +-------+ +---------+-------+---+ +---+---+ | | | +---+---+ + +-------+ + +---+---+ | sevelamer (RENVELA) tablet | Given | | 1,600 mg | | | | 1,600 mg 1,600 mg, Oral, 3 Times | | 9 10:14 | | | | | Daily With Meals, First dose on | | PST | | | | | 12/08/18 at 0800 | | | | | | + +-------+ + +---+---+ +-------+ + +---+---+ | Given | | 1,600 mg | | | | | 9 16:49 | | | | | | PST | | | | +-------+ + +---+---+ | Given | | 1,600 mg | | | | | 9 10:25 | | | | | | PST | | | | +-------+ + +---+---+ +---+---+ | | | +---+---+ + +---------+ +--------+---+---+ | sodium chloride (bolus) 0.9 % | New Bag | | 1,000 | | | | 1,000 mL 1,000 mL, Intravenous, | | 9 17:06 | mLs | | | | Administer over 5 Minutes, Once, | | PST | | | | | 12/07/18 at 1658, For 1 dose | | | | | | + +---------+ +--------+---+---+ +---+---+ | | | +---+---+ + +-------+ +------+---+---+ | zolpidem (AMBIEN) tablet 5 mg | Given | | 5 mg | | | | 5 mg, Oral, Nightly PRN, Sleep, | | 9 21:18 | | | | | may repeat once in 1 hr if | | PST | | | | | initial dose not effective, | | | | | | | Starting 12/07/18 at 2036 | | | | | | + +-------+ +------+---+---+ +-------+ +------+---+---+ | Given | | 5 mg | | | | | 9 22:57 | | | | | | PST | | | | +-------+ +------+---+---+ | Given | | 5 mg | | | | | 9 20:59 | | | | | | PST | | | | +-------+ +------+---+---+ +---+---+ | | | +---+---+ in this encounter
--- OUTSIDE RECORDS SUMMARY | ~2019-01-28 | XMS | Encounter Summary ---
Demographics + + + | Address | [address] | | | [place] [address] | + + + | Home Phone | | + + + | Preferred Language | Unknown | + + + | Marital Status | | + + + | Holiness Affiliation | Unknown | + + + | Race | Unknown | + + + | Ethnic Group | Unknown | + + + Author + + + | Author | [facility] | + + + | Organization | [email or web address] | + + + | Address | Unknown | + + + | Phone | Unavailable | + + + Support + + + + + | Name | Relationship | Address | Phone | + + + + + | Lyubov Smalls | [address] | [place] | | | | | [address] | | + + + + + | Lydia Palm | ECON | [place] | | | | | [address] | | + + + + + | Jose C Oconnor | ECON | [address] | | | | | [place] | | | | | [address] | | + + + + + Care Team Providers + +------+ + | Care Multimedia Instructional Designer Name | Role | Phone | + +------+ + | Juan F Whitley MD | PCP | | + +------+ + Reason for Visit +--------+ + | Reason | Comments | +--------+ + | Other | October 2018[facility] D[facility] Rounding Note | +--------+ + Encounter Details +--------+ + + + + | Date | Type | Department | Care Team | Description | +--------+ + + + + | 11/18/ | Documentati | [facility] | Santos Chi MD | Other (October | | 2019 | on Only | [address] | 2018-[facility] | | | | [address] | [address] [place], [place] | Dialysis Rounding | | | | [place] [address] | [phone] | Note) | | | | [phone] | | | +--------+ + + + [...]
--- OUTSIDE RECORDS SUMMARY | ~2019-01-28 | XMS | Clinical Summary ---
Demographics + + + | Address | [address] | | | [place] [address] | + + + | Home Phone | | + + + | Preferred Language | Unknown | + + + | Marital Status | | + + + | Buddhism Affiliation | Unknown | + + + | Race | Unknown | + + + | Ethnic Group | Unknown | + + + Author + + + | Author | [facility] | | | and [place] | + + + | Organization | [facility] | | | and [place] | + + + | Address | Unknown | + + + | Phone | Unavailable | + + + Support + + + + + | Name | Relationship | Address | Phone | + + + + + | Lyubov Smalls | ECON | [place], [place] | | | | | [address] | | + + + + + | Lydia Palm | ECON | [place], [place] | | | | | [address] | | + + + + + Care Team Providers + +------+ + | Care Compensation Vice President Name | Role | Phone | + +------+ + | Juan F Whitley DO | PP | | + +------+ + Allergies No Known Allergies Current Medications + + +-------+---------+------+------+-------+ | Prescription | Sig. | Disp. | Refills | Star | End | Statu | | | | | | t | Date | s | | | | | | Date | | | + + +-------+---------+------+------+-------+ | | Take 1 tablet by | | | | | Activ | | HYDROcodone-acetamin | mouth every 6 hours | | | | | e | | ophen (NORCO) 5-325 | as needed for Pain. | | | | | | | mg per tablet | | | | | | | + + +-------+---------+------+------+-------+ | ondansetron | Take 4 mg by mouth | | | | | Activ | | (ZOFRAN ODT) 4 mg | every 8 hours as | | | | | e | | disintegrating | needed for Nausea. | | | | | | | tablet | | | | | | | + + +-------+---------+------+------+-------+ | omeprazole | Take 20 mg by mouth | | | | | Activ | | (PRILOSEC) 20 mg | every morning | | | | | e | | capsule | (before breakfast). | | | | | | + + +-------+---------+------+------+-------+ | furosemide (LASIX) | Take 20 mg by mouth | | | | | Activ | | 20 mg tablet | 2 times daily. | | | | | e | + + +-------+---------+------+------+-------+ | lisinopril | Take 10 mg by mouth | | | | | Activ | | (PRINIVIL, ZESTRIL) | 2 times daily. | | | | | e | | 10 mg tablet | | | | | | | + + +-------+---------+------+------+-------+ Active Problems Not on file Family History + + +------+ + | Medical History | Relation | Name | Comments | + + +------+ + | Cancer | Maternal | | breast ca | | | Grandmoth | | | | | er | | | + + +------+ + | Kidney disease | Paternal | | renal falure | | | Grandfath | | | | | er | | | + + +------+ + + +------+ + + | Relation | Name | Status | Comments | + +------+ + + | Maternal Grandmother | | | | + +------+ + + | Paternal Grandfather | | | | + +------+ + + Social History + +-------+ +--------+------+ [...] on file | | + + + Last Filed Vital Signs + + + + | Vital Sign | Reading | Time Taken | + + + + | Blood Pressure | 145/90 | 01/07/2017 1748 PST | + + + + | Pulse | 80 | 01/07/20171747 PST | + + + + | Temperature | 36.7 C (98 F) | 01/07/20171747 PST | + + + + | Respiratory Rate | 16 | 01/07/20171747 PST | + + + + | Oxygen Saturation | 100% | 01/07/20171747 PST | + + + + | Inhaled Oxygen | - | - | | Concentration | | | + + + + | Weight | 87.1 kg (192 lb) | 01/07/20171747 PST | + + + + | Height | 160 cm (5' 3") | 01/07/20171747 PST | + + + + | Body Mass Index | 34.01 | 01/07/20171747 PST | + + + + Plan of Treatment + + + + + | Health Maintenance | Due Date | Last Done | Comments | + + + + + | Vaccine: | | | | | Dtap/Tdap/Td (1 - | 7 | | | | Tdap) | | | | + + + + + | Cervical Cancer | | | | | Screening (Pap) | 8 | | | + + + + + | Adult Annual | | | | | Wellness Visit | 5 | | | + + + + + | Vaccine: Influenza | | | | | (#1) | 8 | | | + + + + + Results Not on filefrom Last 3 Months Insurance + +--------+ +--------+ +---------+ | Payer | Benefi | Subscriber | Type | Phone | Address | | | t Plan | ID | | | | | | / | | | | | | | Group | | | | | + +--------+ +--------+ +---------+ | MEDICARE | MEDICA | [id number] | Medica | [phone] | | | | RE | | re | [phone] | | | | PART A | | | | | | | AND B | | | | | + +--------+ +--------+ +---------+ | BCBS | BCBS | [id number] | PPO | | | | | FEDERA | | | | | | | L FEP | | | | | + +--------+ +--------+ +---------+ + +--------+ +--------+ + + | Guarantor Name | Accoun | Relation to | Date | Phone | Billing Address | | | t Type | Patient | of | | | | | | | | | | + +--------+ +--------+ + + | JOHN REEVES | Person | Self [birth year] Home: | [address] [place] [address] [address] | | [place] | al/Fam | | [phone] | [phone] [place] | | | caesar | | [phone] | [phone] | + +--------+ +--------+ + +
--- OUTSIDE RECORDS SUMMARY | ~2019-01-28 | XMS | Encounter Summary ---
Demographics + + + | Address | [address] | | | [place] [address] | + + + | Home Phone | | + + + | Preferred Language | Unknown | + + + | Marital Status | | + + + | Gnosticist Affiliation | Unknown | + + + | Race | Unknown | + + + | Ethnic Group | Unknown | + + + Author + + + | Author | [facility] | + + + | Organization | [facility] | + + + | Address | Unknown | + + + | Phone | Unavailable | + + + Support + + + + + | Name | Relationship | Address | Phone | + + + + + | Lyubov Smalls | [address] | [place] | | | | | [address] | | + + + + + | Lydia Palm | ECON | [place] | | | | | [address] | | + + + + + | Jose C Oconnor | ECON | [address] | | | | | [place] | | | | | [address] | | + + + + + Care Team Providers + +------+ + | Care Skein Drier Name | Role | Phone | + [...] | | [address] | [address] [place], [place] | Dialysis Rounding | | | | [place] [address] | [address] | Note) | | | | [phone] | | | +--------+ + + + [...]
--- OUTSIDE RECORDS SUMMARY | ~2019-01-28 | XMS | Encounter Summary ---
Demographics + + + | Address | [address] | | | [place] [address] | + + + | Home Phone | | + + + | Preferred Language | Unknown | + + + | Marital Status | | + + + | Holiness Affiliation | Unknown | + + + | Race | Unknown | + + + | Ethnic Group | Unknown | + + + Author + + + | Author | [facility] [employer] | + + + | Organization | [facility] [employer] | + + + | Address | Unknown | + + + | Phone | Unavailable | + + + Support + + + + + | Name | Relationship | Address | Phone | + + + + + | Lyubov Smalls | MASHA | [place] | | | | | [address] | | + + + + + | Lydia Palm | ECON | [place] | | | | | [address] | | + + + + + | Jose C Oconnor | ECON | [address] | | | | | [place] | | | | | [address] | | + + + + + Care Team Providers + +------+ + | Care Congressional Representative Name | Role | Phone | + +------+ + | Juan F Whitley MD | PCP | | + +------+ + Reason for Visit + + + | Reason | Comments | + + + | Abdominal Pain | Xfer from [facility] d/t diverticulitis. | + + + Auth/Cert +--------+--------+ + + + + | Status | Reason | Specialty | Diagnoses / | Referred By | Referred To | | | | | Procedures | Contact | Contact | +--------+--------+ + + + + | | | General | Diagnoses | | [facility] | | | | Surgery | Hypokalemia | | Surgical [address] | | | | [address] | | | | | Diverticulit | | [place], [place] | | | | | is ESRD on | | [address] Phone: | | | | | peritoneal | | [phone] | | | | | dialysis | | Fax: | | | | | ([facility]) | | [phone] | +--------+--------+ + + + + Encounter Details +--------+ + + + + | Date | Type | Department | Care Team | Description | +--------+ + + + + | 01/05/ | Hospital | [facility] | [place], | Diverticulitis | | 2019 - | Encounter | [facility] | [address] | (Primary Dx); | | | | Surgical [address] | [place] [address] | Hypokalemia; ESRD on | | 01/09/ | | Blvd [place], [place] | [phone] | peritoneal dialysis | | 2018 | | [address] | | (HCC); End-stage | | | | | Salvador Ruiz MD | renal disease on | | | | | [address] | peritoneal dialysis | | | | | [place] [address] | (HCC) | | | | | [phone] | | | | | | | | | | | | Chris Smart MD | | | | | | [address] | | | | | | [place] [address] | | | | | | [phone] | | | | | | | [...] + + + | Blood Pressure | 105/55 | 01/09/2019 9:34 AM PST | + + + + | Pulse | 88 | 01/09/2019 9:34 AM PST | + + + + | Temperature | 36.7 C (98.1 F) | 01/09/2019 7:00 AM PST | + + + + | Respiratory Rate | 18 | 01/09/2019 7:00 AM PST | + + + + | Oxygen Saturation | 99% | 01/09/2019 7:00 AM PST | + + + + | Inhaled Oxygen | - | - | | Concentration | | | + + + + | Weight | 86.4 kg (190 lb 7.6 | 01/09/2019 7:00 AM PST | | | oz) | | + + + + | Height | 157.5 cm (5' 2") | 01/05/2019 11:40 AM PST | + + + + | Body Mass Index | 34.84 | 01/09/2019 7:00 AM PST | + + + + in this encounter Discharge Summaries Chris Smart MD - 01/09/2019 10:14 AM PSTFormatting of this note may be different from victor manuel mckeon. [facility] Service: Hospitalist Physician Discharge Summary Pt: Ramona Oconnor AGE/SEX: 38 y.o. female ROOM: 431/431-1 PCP: JUAN F WHITLEY : 1980 Admit date: 01/05/2019 Discharge date and time: 01/09/2019 10:14 AM Admitting Physician: Salvador Ruiz MD Discharge Physician: Chris Smart MD Consults: DR. Monte Primary Discharge Diagnoses: Principal Problem: Diverticulitis Active Problems: Gastroesophageal reflux disease without esophagitis ESRD on peritoneal dialysis Right ovarian cyst Anemia in ESRD (end-stage renal disease) (HCC) Hyperphosphatemia Abnormal EKG Secondary hyperparathyroidism (HCC) Resolved Problems: Abdominal pain Hypokalemia Leukocytosis Left lower quadrant pain Elevated troponin Secondary Discharge Diagnoses: NIll Discharged Condition: stable Significant Diagnostic Studies/Procedures: No results found. HPI and Hospital Course: 38 y.o.femalewith significant past medical history of End-stage renal disease on perito aquilino dialysis, GERD, chronic nausea, essential hypertension. The patient was discharged re cently after admission for culture negative peritoneal dialysis catheter associated peritoni tis, and was treated with ceftazidime and vancomycin, she was discharged home on oral Ceftin need and Flagyl and presented to the hospital with abdominal pain with CT scan finding cons istent with acute diverticulitis. She was started on Zosyn. Her symptom has significantly im proved. She will go home on oral Cipro and Flagyl. She says she is not having any abdominal pain, no nausea or vomiting today. She is not having any bloody bowel movement either. She Had no CP, SOB, N/V, Diarrhea, Abdominal pain or SARABIA. No constipation or change in bowel habits. No orthopnea or PND. Appetite is good without abdominal bloating. No cough or fever . No dizziness, lightheadedness or any symptoms suggestive of stroke. Follow Up Labs/Imaging and Monitoring: Nephrology Discharge Vitals: Vitals: 01/08/19 2341 01/09/19 0348 01/09/19 0700 01/09/19 0934 BP: 91/50 95/55 105/55 BP Location: Right upper arm Right upper arm Pulse: 78 76 88 Resp: 18 20 18 Temp: 98.6 F (37 C) 97.6 F (36.4 C) 98.1 F (36.7 C) TempSrc: Oral Oral Oral SpO2: 95% 96% 99% Weight: 87.5 kg (192 lb 14.4 oz) 86.4 kg (190 lb 7.6 oz) Height: Discharge Exam: Constitutional: Alert and oriented to person, place, and time. Cardiovascular: Normal rate, regular rhythm, normal heart sounds with S1 and S2 and intact distal pulses. Exam reveals no gallop and no friction rub. No murmur heard. Pulmonary/Chest: Clear B/l Abdominal: Soft. NT Musculoskeletal: Normal range of motion.exhibits no tenderness. exhibits no edema. Neurological: Alert and oriented to person, place, and time. Skin: Skin is warm and dry. No rash noted. No erythema. No pallor. Psychiatric: Has a normal mood and affect. Behavior is normal. Judgment normal. Not suicida l LABS: Recent Labs Lab 01/09/19 0546 01/08/19 0526 01/07/19 0518 01/06/19 0529 WBC 11.16* 11.96* 9.72 11.15* HGB 10.0* 9.4* 10.2* 11.0* HCT 30.2* 28.3* 30.4* 33.7* PLT 201 197 225 267 NEUTOPHILPCT 77.04 80.70 -- 75.00 MONOPCT 6.01 5.54 -- 6.73 Recent Labs Lab 01/09/19 0546 01/08/19 0526 01/07/19 1738 01/07/19 0518 01/06/19 0529 01/05/19 0051 NA 140 137 134* 134* 134* < > 143 K 4.2 3.4* 4.0 2.6* 2.7* < > 2.8* CL 105 102 101 98* 97* < > 99 CO2 22* 21* 20* 23 23 < > 23 BUN 32* 33* 38* 34* 39* < > 37* CREATININE 13.2* 13.3* 14.4* 14.0* 15.2* < > 15.32* PROT -- -- -- 5.4* 6.0* -- 6.8 BILITOT -- -- -- 0.3 0.4 -- 0.4 ALT -- -- -- 36 50 -- 53 AST -- -- -- 17 26 -- 55* < > = values in this interval not displayed. Recent Labs Lab 01/09/19 0546 01/08/19 0526 01/07/19 0518 MG 2.0 2.0 2.1 Recent Labs Lab 01/05/19 0542 INR 1.1 Recent Labs Lab 01/05/19 1147 01/05/19 0542 01/05/19 0051 TROPONINI 0.074* 0.073* 0.076* Results No results found for the last 72 hours. Disposition: Home or Self Care Patient Instructions: Medication List START taking these medications ciprofloxacin 500 MG tablet QTY: 5 tablet Refills: 0 Commonly known as: CIPRO Take 1 tablet by mouth daily for 5 days. CONTINUE taking these medications ALPRAZolam 0.5 MG tablet Refills: 0 Commonly known as: XANAX amLODIPine 2.5 MG tablet Refills: 0 Commonly known as: NORVASC ergocalciferol 75089 units capsule Refills: 0 Commonly known as: [...] as: ATIVAN metroNIDAZOLE 500 MG tablet QTY: 10 tablet Refills: 0 Commonly known as: FLAGYL Take 1 tablet by mouth every 12 (twelve) hours for 5 days. omeprazole 20 MG capsule Refills: 0 Commonly known as: PRILOSEC ondansetron 8 MG tablet QTY: 30 tablet Refills: 11 Commonly known as: ZOFRAN Take 1 tablet by mouth every 8 (eight) hours as needed for Nausea. potassium chloride SA 20 MEQ tablet QTY: 30 tablet Refills: 3 Commonly known as: K-DUR,KLOR-CON Take 1 tablet by mouth daily. promethazine 25 MG tablet Refills: 0 Commonly known as: PHENERGAN sevelamer 800 MG tablet Refills: 0 Commonly known as: RENVELA traZODone 100 MG tablet Refills: 0 Commonly known as: DESYREL zolpidem 5 MG tablet QTY: 10 tablet [...] Care Pro vider. STOP taking these medications cefdinir 300 MG capsule Commonly known as: OMNICEF clonazePAM 0.5 MG tablet Commonly known as: KlonoPIN Where to Get Your Medications You can get these medications from any pharmacy Bring a paper prescription for each of these medications ciprofloxacin 500 MG tablet metroNIDAZOLE 500 MG tablet Activity: activity as tolerated Diet: clear liquids, advance as tolerated Wound Care: as directed Discharge medications reconciliation was completed by myself. I carefully reviewed all the medications with the patient. All the dosages was confirmed with the patient to the best o f patient's knowledge. I resumed most of his home medication after talking to the patient. I informed the patien t that, If you are not taking any of those medicines or if you think that dose is not righ t please talk to the primary care doctor for adjustment of doses and medications. Please rajeev yanely all the medication to your PCP and show him what medication you are taking so that he can adjust your medications if needed. Follow-Up: [place] [address] [place] [id number] In 1 week Santos Chi MD [address] [place] [id number] In 1 week Discharge took more than 35 minutes, to include final examination, discussion of admission, and preparation of prescriptions, instructions for ongoing care, follow up and dictation of summary. Signed: CHRIS SMART MD 01/09/2019 10:14 AM Dictation software, [employer], used which may contain error for similar sounding words even af ter review. Personal communication requested for any clarification. Portions of this chart may have been copied from previous notes for continuity of care purp ose in this encounter Discharge Instructions Chris Smart MD - 01/09/2019 Diverticulitis Some people get pouches along the wall of the colon as they get older. The pouches,called diverticuli, usually cause no symptoms. If the pouches become blocked, you can get an infec tion. This infection is called diverticulitis. It causes pain in your lower abdomen and feve r. If not treated, it can become a serious condition, causing an abscess to form inside the pouch. The abscess may block the intestinal tract even or rupture, spreading infection throu ghout the abdomen. When treatment is started early, oral antibiotics alone may be enough to cure diverticuliti s. This method is tried first. But, if you don't improve or if your condition gets worse whi le using oral antibiotics, you may need to be admitted to the hospital for IV antibiotics. S evere cases may require surgery. Home care The following guidelines will help you care for yourself at home: During the acute illness, rest and follow your healthcareprovider's instructions about diet. Sometimes you will need to follow a clear liquid diet to rest your bowel. Once your s ymptoms are better, you may be told to follow a low-fiber diet for some time. Include foods like: Flake cereal, mashed potatoes, pancakes, waffles, pasta, white bread, rice, applesauce, bananas, eggs, fish, poultry, tofu, and cooked soft vegetables Take antibiotics exactly as instructed. Don't miss any doses or stop taking the medicati on, even if you feel better. Monitor your temperature and tell your healthcare provider if you have rising temperatur es. Preventing future attacks Once you have an episode of diverticulitis, you are at risk for having it again. After you have recovered from this episode, you may be able to lower your risk by eating a high-fiber diet (20 gm/day to 35 gm/day of fiber). This cleans out the colon pouches that already exist and may prevent new ones from forming. Foods high in fiber include fresh fruits and edible peelings, raw or lightly cooked vegetables, whole grain cereals and breads, dried beans and peas, and bran. Other steps that can help prevent future attacks include: Take your medicines, such as antibiotics, asyour healthcare provider says. Drink 6 to 8 glasses of water every day, unless told otherwise. Use a heating pad or hot water bottle to help abdominal cramping or pain. Begin an exercise program. Ask your healthcare provider how to get started. You can bene fit from simple activities such as walking or gardening. Treat diarrhea with a bland diet. Start with liquids only; then slowly add fiber over ti me. Watch for changes in your bowel movements (constipation to diarrhea). Avoid constipation by eating a high fiber diet and taking a stool softener if needed. Get plenty of rest and sleep. Follow-up care Follow up with your healthcare provider as advised or sooner if you are not getting better in the next 2days. When to seek medical advice Call your healthcare provider right away if any of these occur: Fever of 100.4F (38C) or higher, or as directed by your healthcare provider Repeated vomiting or swelling of the abdomen Weakness, dizziness, light-headedness Pain in your abdomen that gets worse, severe, or spreads to your back Pain that moves to the right lower abdomen Rectal bleeding (stools that are red, black or maroon color) Unexpected vaginal bleeding Date Last Reviewed: 07/11/201619996722-3146 [employer]. [address] [place] [address]. All righ ts reserved. This information is [...] | + + +--------+---------+ + + | omeprazole | Take 20 mg by mouth | | | | | | (PRILOSEC) 20 MG | every morning before | | | | | | capsule | breakfast. | | | | | + + [...] +--------+---------+ + + | promethazine | Take 25 mg by mouth | | | | | | (PHENERGAN) 25 MG | every 6 (six) hours | | | | | | tablet | as needed for | | | | | | | Nausea. | | | | | + + +--------+---------+ + + | traZODone | Take 100 mg by mouth | | | | | | (DESYREL) 100 MG | nightly. | | | | | | tablet | | | | | | + + +--------+---------+ + + | zolpidem (AMBIEN) | Take 1 tablet by | 10 | 0 | 04//20 | | | 5 MG tablet | [...] | | | | | | (DRISDOL) [address] | mouth once a week. | | | | | | UNITS capsule | | | | | | + + +--------+---------+ + + | gentamicin | Apply topically 3 | 15 g | 1 | 01/26/20 | | | (GARAMYCIN) 0.1 % | (three) times daily. | | | 17 | | | ointment | | | | | | + + +--------+---------+ + + | potassium chloride | Take 1 tablet by | 30 | 3 | 03/09/20 | | | SA (KHALEY,HOLLY) | mouth daily. | tablet | | 18 | 9 | | 20 MEQ tablet | | | | | | + + +--------+---------+ + + | sevelamer | Take 800 mg by mouth | | | | | | (RENVELA) 800 MG | 3 (three) times | | | | | | tablet | daily with meals. | | | | | + + +--------+---------+ + + | ciprofloxacin | Take 1 tablet by | 5 | 0 | 01/10/20 | | | (CIPRO) 500 MG | mouth daily for 5 | tablet | | 19 | 9 | | tablet | days. | | | | | + + +--------+---------+ + + | metroNIDAZOLE | Take 1 tablet by | 10 | 0 | 01/10/20 | | | (FLAGYL) 500 MG | mouth every 12 | tablet | | 19 | 9 | | tabletIndications: | (twelve) hours for 5 | | | | | | Enteritis and | days. | | | | | | Colitis | | | | | | + + +--------+---------+ + + as of this encounter Progress Notes Linden Monte MD - 01/09/2019 10:52 AM PSTFormatting of this note may be different from the original. [facility] Service: NEPHROLOGY PD/ Progress Note Ramona Oconnor 38 y.o. [id number] 431/431-[address] [facility] Hospital Day: LOS: 4 days Patient with PMH as listed below admitted with left sided abd pain / divertuculitis Nephrology consulted for evaluation and management of ESRD CHRONIC SEVERE ASSOCIATED WITH FLUID ELECTROLYTE IMBALANCES Assess need for Pd/uf SUBJECTIVE Patient seen and examined cristina pd well SAYS FEEL ok, no left sided abdominal pain, improved nausea DENIES CHEST PAIN, SOB, VOMITING, DIARRHEA, FEVER, COUGH, HEADACHE Past Medical History Diagnosis Date Diverticulitis 01/05/2019 Diverticulosis ESRD on peritoneal dialysis [...] 10/25/15 showed normal sized kidneys. 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 GERD (gastroesophageal reflux disease) Hypercalcemia 09/07/2017 Hyperphosphatemia 10/28/2015 Hypocalcemia 10/28/2015 Hypokalemia 06/04/2017 Itching 10/28/2015 Metabolic acidosis 10/28/2015 Obesity Peritonitis associated with peritoneal dialysis (HCC) 01/24/2017 Peritonitis due to infected peritoneal dialysis catheter (HCC) 12/08/2018 Secondary hyperparathyroidism (HCC) Uremia 10/28/2015 Past Surgical History Procedure Laterality Date ESOPHAGOGASTRODUODENOSCOPY N/A 09/10/2017 Procedure: ESOPHAGOGASTRODUODENOSCOPY; Surgeon: Beena Peters MD; Location: [facility]; Service: Gastroenterology; Laterality: N/A; PERITONEAL CATHETER INSERTION N/A 10/28/2015 Procedure: LAPAROSCOPIC - PERITONEAL DIALYSIS CATH INSERTION; Surgeon: Mundo Ramos MD; Lo cation: [facility]; Service: Vascular; Laterality: N/A; Family History Problem Relation Age of Onset Other (see comments) Mother healthy Diabetes Father Breast cancer Maternal Grandmother Social History Social History Marital status: Spouse name: N/A Number of children: 0 Years of education: N/A Occupational History Not on file. Social History Main Topics Smoking status: Former Smoker Packs/day: 0.25 Quit date: 10/10/2015 Smokeless tobacco: Never Used Alcohol use No Comment: occ Drug use: Yes Types: Marijuana Comment: oil Sexual activity: Yes Partners: Male control/ protection: None Comment: Other Topics Concern Not on file Social History Narrative She lives at home and is a former smoker. Scheduled Medications aspirin 325 mg Oral Daily with breakfast atorvastatin 20 mg Oral Nightly metoprolol 25 mg Oral Daily pantoprazole 40 mg Oral QAM AC piperacillin-tazobactam 2.25 g Intravenous Q12H potassium chloride 20 mEq Oral BID WC sevelamer 800 mg Oral TID WC traZODone 100 mg Oral Nightly Continuous Infusions PRN Medications acetaminophen OR acetaminophen, ALPRAZolam, HYDROcodone-acetaminophen, ondansetron OR ondansetron, polyethylene glycol, promethazine Allergy: No Known Allergies OBJECTIVE Vital Signs: BP 105/55 | Pulse 88 | Temp 98.1 F (36.7 C) (Oral) | Resp 18 | Ht 1.575 m (5' 2") | Wt 86.4 kg (190 lb 7.6 oz) | SpO2 99% | BMI 34.84 kg/m I&O Detailed Table: I/O last 3 completed shifts: In: 65976 [P.O.:1250; I.V.:1154; Other:9969] Out: 28231 [Other:23721] Weight change: -0.6 kg (-1 lb 5.2 oz) Examination: Family at bedside APPEARANCE: The patient is sitting in no distress VITALS: Reviewed as listed. EYES: +ve pale conjunctiva LUNGS: Clear to auscultation bilaterally. HEART: S1, S2, no pericardial rub noted. ABDOMEN: Full, soft, NT. +ve pd catheter in place EXTREMITIES: no pedal edema noted. NEUROLOGIC: No gross focal motor deficit noted, no Asterixis. PSYCH: The patient is awake and alert AXOX3 , mood and affect looks ok LABS: Recent Results (from the past 24 hour(s)) CBC W/Auto Diff (Reflex to Manual) Collection Time: 01/09/19 5:46 AM Result Value Ref Range WBC 11.16 (H) 3.80 - 11.00 K/uL RBC 3.32 (L) 3.70 - 5.10 M/uL HGB 10.0 (L) 11.3 - 15.5 g/dL HCT 30.2 (L) 34.0 - 46.0 % MCV 91.1 80.0 - 100.0 fl MCH 30.3 27.0 - 34.0 pg MCHC 33.2 32.0 - 35.5 g/dL RDW SD 51.6 37 - 53 fl PLT 201 150 - 400 K/uL MPV 9.5 fl DIFF TYPE AUTOMATED NEUTROPHILS 77.04 % LYMPHOCYTES 13.84 % MONOCYTES 6.01 % EOSINOPHILS 2.62 % BASOPHILS 0.49 % NEUTROPHILS ABS 8.59 (H) 1.90 - 7.40 K/uL LYMPHOCYTES ABS 1.54 1.00 - 3.90 K/uL MONOCYTES ABS 0.67 0.00 - 0.80 K/uL EOSINOPHILS ABS 0.29 0.00 - 0.50 K/uL BASOPHILS ABS 0.06 0.00 - 0.10 K/uL Basic metabolic panel Collection Time: 01/09/19 5:46 AM Result Value Ref Range SODIUM 140 135 - 145 mmol/L POTASSIUM 4.2 3.5 - 4.9 mmol/L CHLORIDE 105 99 - 109 mmol/L CO2 22 (L) 23 - 32 mmol/L ANION GAP AGAP 17 5 - 20 mmol/L GLUCOSE 70 65 - 99 mg/dL BUN 32 (H) 8 - 25 mg/dL CREATININE 13.2 (H) 0.50 - 1.00 mg/dL BUN/CREAT 2 CALCIUM 7.1 (L) 8.5 - 10.5 mg/dL EGFR 3 (L) >60 mL/min/1.73m2 Magnesium Collection Time: 01/09/19 5:46 AM Result Value Ref Range MAGNESIUM 2.0 1.7 - 2.4 mg/dL Imaging No results found. PROBLEM LIST Principal Problem: Diverticulitis Active Problems: Gastroesophageal reflux disease without esophagitis ESRD on peritoneal dialysis Right ovarian cyst Anemia in ESRD (end-stage renal disease) (HCC) Hyperphosphatemia Abnormal EKG Secondary hyperparathyroidism (HCC) ASSESSMENT & PLAN ESRD ON PD Tolerating pd/uf well, d/w pd rn Assess daily for need for pd & uf Orders in the chart Fluid restriction 1.2 litres/24 hours Strict I & O Daily RFP Renal diet Daily weights will help with subsequent pd with uf Dose all meds per protocol for ESRD on pd HYPOKALEMIA improved REPLACE TO KEEP k GREATER THAN 3.8 Follow k LEVEL Lab Results Component Value Date K 4.2 01/09/2019 K 3.4 (L) 01/08/2019 K 4.0 01/07/2019 ANEMIA in ESRD improving EPOGEN TO KEEP HGB 10-11 Lab Results Component Value Date HGB 10.0 (L) 01/09/2019 HGB 9.4 (L) 01/08/2019 HGB 10.2 (L) 01/07/2019 FERRITIN 56 10/27/2015 LABIRON 12 (L) 10/27/2015 HYPERTENSION Controlled bp WATCH BP CLOSELY DURING HOSPITALIZATION LOW NA DIET Will adjust BP meds according to BP readings BP Readings from Last 3 Encounters: 01/09/19 105/55 12/27/18 104/63 12/10/18 118/83 HYPERPHOSPHATEMIA Improving LOW P DIET PO4 BINDERS renvela with meals Lab Results Component Value Date PHOS 8.8 (H) 01/06/2019 PHOS 11.2 (HH) 01/05/2019 PHOS 11.7 (HH) 01/05/2019 HYPOALBUMINEMIA INCREASE PROTEIN INTAKE Lab Results Component Value Date ALB 2.1 (L) 01/07/2019 ALB 2.4 (L) 01/06/2019 ALB 4.1 01/05/2019 Diverticulitis per primary team CASE DISCUSSED IN DETAIL WITH PATIENT/ care team, ANSWERS ALL QUESTIONS IN DETAIL, VERBALIZ ES UNDERSTANDING LINDEN MONTE MD 01/09/2019 JUAN F WHITLEY Seen earlier and charting completed later Dictation software, [employer], used which may contain error for similar sounding words even af ter review. Personal communication requested for any clarification. Portions of my notes may have been carried over for continuity of care. Linden Monte MD - 01/08/2019 4:59 PM PSTFormatting of this note may be different from the original. [facility] Service: NEPHROLOGY PD/ Progress Note Ramona Haresh Oconnor 38 y.o. [id number] 431/431-1 female JUAN F WHITLEY Hospital Day: LOS: 3 days Patient with PMH as listed below admitted with left sided abd pain / divertuculitis Nephrology consulted for evaluation and management of ESRD CHRONIC SEVERE ASSOCIATED WITH FLUID ELECTROLYTE IMBALANCES Assess need for Pd/uf SUBJECTIVE Patient seen and examined cristina pd well SAYS FEEL WEAK, still c/o left sided abdominal pain 6/10, nausea DENIES CHEST PAIN, SOB, VOMITING, DIARRHEA, FEVER, COUGH, HEADACHE Past Medical History Diagnosis Date Diverticulitis 01/05/2019 Diverticulosis ESRD on peritoneal dialysis [...] 10/25/15 showed normal sized kidneys. 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 GERD (gastroesophageal reflux disease) Hypercalcemia 09/07/2017 Hyperphosphatemia 10/28/2015 Hypocalcemia 10/28/2015 Hypokalemia 06/04/2017 Itching 10/28/2015 Metabolic acidosis 10/28/2015 Obesity Peritonitis associated with peritoneal dialysis (HCC) 01/24/2017 Peritonitis due to infected peritoneal dialysis catheter (HCC) 12/08/2018 Secondary hyperparathyroidism (HCC) Uremia 10/28/2015 Past Surgical History Procedure Laterality Date ESOPHAGOGASTRODUODENOSCOPY N/A 09/10/2017 Procedure: ESOPHAGOGASTRODUODENOSCOPY; Surgeon: Beena Peters MD; Location: [facility]; Service: Gastroenterology; Laterality: N/A; PERITONEAL CATHETER INSERTION N/A 10/28/2015 Procedure: LAPAROSCOPIC - PERITONEAL DIALYSIS CATH INSERTION; Surgeon: Mundo Ramos MD; Lo cation: [facility]; Service: Vascular; Laterality: N/A; Family History Problem Relation Age of Onset Other (see comments) Mother healthy Diabetes Father Breast cancer Maternal Grandmother Social History Social History Marital status: Spouse name: N/A Number of children: 0 Years of education: N/A Occupational History Not on file. Social History Main Topics Smoking status: Former Smoker Packs/day: 0.25 Quit date: 10/10/2015 Smokeless tobacco: Never Used Alcohol use No Comment: occ Drug use: Yes Types: Marijuana Comment: oil Sexual activity: Yes Partners: Male control/ protection: None Comment: Other Topics Concern Not on file Social History Narrative She lives at home and is a former smoker. Scheduled Medications aspirin 325 mg Oral Daily with breakfast atorvastatin 20 mg Oral Nightly metoprolol 25 mg Oral Daily pantoprazole 40 mg Oral QAM AC piperacillin-tazobactam 2.25 g Intravenous Q12H potassium chloride 20 mEq Oral BID WC sevelamer 800 mg Oral TID WC traZODone 100 mg Oral Nightly Continuous Infusions PRN Medications acetaminophen OR acetaminophen, ALPRAZolam, HYDROcodone-acetaminophen, ondansetron OR ondansetron, polyethylene glycol, promethazine Allergy: No Known Allergies OBJECTIVE Vital Signs: BP 91/55 (BP Location: Left upper arm) | Pulse 66 | Temp 98.4 F (36.9 C) (Oral) | Re sp 18 | Ht 1.575 m (5' 2") | Wt 88.1 kg (194 lb 3.6 oz) Comment: post PD tx bedscale | SpO 2 95% | BMI 35.52 kg/m I&O Detailed Table: I/O last 3 completed shifts: In: [P.O.:1600; I.V.:1943; Other:] Out: [Other:] Weight change: Examination: Family at bedside APPEARANCE: The patient is lying comfortably in bed, answering appropriately, sleepy but ar ousable VITALS: Reviewed as listed. EYES: +ve pale conjunctiva LUNGS: Clear to auscultation bilaterally. HEART: S1, S2, no pericardial rub noted. ABDOMEN: Full, soft, +ve left sided tenderness noted. +ve pd catheter in place EXTREMITIES: no pedal edema noted. NEUROLOGIC: No gross focal motor deficit noted, no Asterixis. PSYCH: The patient is sleepy but arousable, mood and affect looks dysphoric LABS: Recent Results (from the past 24 hour(s)) Basic metabolic panel Collection Time: 01/07/19 5:38 PM Result Value Ref Range SODIUM 134 (L) 135 - 145 mmol/L POTASSIUM 4.0 3.5 - 4.9 mmol/L CHLORIDE 101 99 - 109 mmol/L CO2 20 (L) 23 - 32 mmol/L ANION GAP AGAP 17 5 - 20 mmol/L GLUCOSE 97 65 - 99 mg/dL BUN 38 (H) 8 - 25 mg/dL CREATININE 14.4 (H) 0.50 - 1.00 mg/dL BUN/CREAT 3 CALCIUM 6.8 (L) 8.5 - 10.5 mg/dL EGFR 3 (L) >60 mL/min/1.73m2 CBC W/Auto Diff (Reflex to Manual) Collection Time: 01/08/19 5:26 AM Result Value Ref Range WBC 11.96 (H) 3.80 - 11.00 K/uL RBC 3.13 (L) 3.70 - 5.10 M/uL HGB 9.4 (L) 11.3 - 15.5 g/dL HCT 28.3 (L) 34.0 - 46.0 % MCV 90.6 80.0 - 100.0 fl MCH 30.2 27.0 - 34.0 pg MCHC 33.3 32.0 - 35.5 g/dL RDW SD 49.9 37 - 53 fl PLT 197 150 - 400 K/uL MPV 9.7 fl DIFF TYPE AUTOMATED NEUTROPHILS 80.70 % LYMPHOCYTES 11.40 % MONOCYTES 5.54 % EOSINOPHILS 1.99 % BASOPHILS 0.37 % NEUTROPHILS ABS 9.66 (H) 1.90 - 7.40 K/uL LYMPHOCYTES ABS 1.36 1.00 - 3.90 K/uL MONOCYTES ABS 0.66 0.00 - 0.80 K/uL EOSINOPHILS ABS 0.24 0.00 - 0.50 K/uL BASOPHILS ABS 0.05 0.00 - 0.10 K/uL Basic metabolic panel Collection Time: 01/08/19 5:26 AM Result Value Ref Range SODIUM 137 135 - 145 mmol/L POTASSIUM 3.4 (L) 3.5 - 4.9 mmol/L CHLORIDE 102 99 - 109 mmol/L CO2 21 (L) 23 - 32 mmol/L ANION GAP AGAP 17 5 - 20 mmol/L GLUCOSE 114 (H) 65 - 99 mg/dL BUN 33 (H) 8 - 25 mg/dL CREATININE 13.3 (H) 0.50 - 1.00 mg/dL BUN/CREAT 2 CALCIUM 7.0 (L) 8.5 - 10.5 mg/dL EGFR 3 (L) >60 mL/min/1.73m2 Magnesium Collection Time: 01/08/19 5:26 AM Result Value Ref Range MAGNESIUM 2.0 1.7 - 2.4 mg/dL Imaging No results found. PROBLEM LIST Principal Problem: Diverticulitis Active Problems: Gastroesophageal reflux disease without esophagitis Abdominal pain ESRD on peritoneal dialysis Hypokalemia Right ovarian cyst Leukocytosis Anemia in ESRD (end-stage renal disease) (HCC) Left lower quadrant pain Hyperphosphatemia Abnormal EKG Elevated troponin Secondary hyperparathyroidism (HCC) ASSESSMENT & PLAN ESRD ON PD Tolerating pd/uf well, d/w pd rn Assess daily for need for pd & uf Orders in the chart Fluid restriction 1.2 litres/24 hours Strict I & O Daily RFP Renal diet Daily weights will help with subsequent pd with uf Dose all meds per protocol for ESRD on pd HYPOKALEMIA REPLACE TO KEEP k GREATER THAN 3.8 Follow k LEVEL Lab Results Component Value Date K 3.4 (L) 01/08/2019 K 4.0 01/07/2019 K 2.6 (LL) 01/07/2019 ANEMIA in ESRD EPOGEN TO KEEP HGB 10-11 Lab Results Component Value Date HGB 9.4 (L) 01/08/2019 HGB 10.2 (L) 01/07/2019 HGB 11.0 (L) 01/06/2019 FERRITIN 56 10/27/2015 LABIRON 12 (L) 10/27/2015 HYPERTENSION bp on low side asymtomatic WATCH BP CLOSELY DURING HOSPITALIZATION LOW NA DIET Will adjust BP meds according to BP readings BP Readings from Last 3 Encounters: 01/08/19 91/55 12/27/18 104/63 12/10/18 118/83 HYPERPHOSPHATEMIA Improving LOW P DIET PO4 BINDERS renvela with meals Lab Results Component Value Date PHOS 8.8 (H) 01/06/2019 PHOS 11.2 (HH) 01/05/2019 PHOS 11.7 (HH) 01/05/2019 HYPOALBUMINEMIA INCREASE PROTEIN INTAKE Lab Results Component Value Date ALB 2.1 (L) 01/07/2019 ALB 2.4 (L) 01/06/2019 ALB 4.1 01/05/2019 Diverticulitis per primary team CASE DISCUSSED IN DETAIL WITH PATIENT/ care team, ANSWERS ALL QUESTIONS IN DETAIL, VERBALIZ ES UNDERSTANDING LINDEN AYAN MONTE MD 01/08/2019 JUAN F WHITLEY Seen earlier and charting completed later Dictation software, [employer], used which may contain error for similar sounding words even af ter review. Personal communication requested for any clarification. Portions of my notes may have been carried over for continuity of care. Chris Smart MD - 01/08/2019 10:54 AM PSTFormatting of this note may be different from victor manuel mckeon. [facility] Service: Hospitalist Progress Note Pt: Ramona Oconnor AGE/SEX: 38 y.o. female ROOM: [address] [place] [address] : 1980 PCP: JUAN F WHITLEY ADMIT DATE: 01/05/2019 TODAY'S DATE: 01/08/2019 Hospital Day/Hospital Course: LOS: 3 days 38 y.o. female with significant past medical history of End-stage renal disease on peritone al dialysis, GERD, chronic nausea, essential hypertension. The patient was discharged recen tly after admission for culture negative peritoneal dialysis catheter associated peritonitis , and was treated with ceftazidime and vancomycin, she was discharged home on oral Ceftin ne ed and Flagyl and presented to the hospital with abdominal pain with CT scan finding consist ent with acute diverticulitis. SUBJECTIVE: Patient seen and examine. She has tolerated a diet. Her slight nausea today when I was seei ng her. No more abdominal pain. She tolerated diet yesterday. No chest pain, SOB, SARABIA. No co ugh on recumbency. Had no orthopnea or PND. . Still feeling tired and fatigued. No dizziness or lightheadedness. Scheduled Medications: aspirin 325 mg Oral Daily with breakfast atorvastatin 20 mg Oral Nightly metoprolol 25 mg Oral Daily pantoprazole 40 mg Oral QAM AC piperacillin-tazobactam 2.25 g Intravenous Q12H potassium chloride 20 mEq Oral BID WC sevelamer 800 mg Oral TID WC traZODone 100 mg Oral Nightly Continuous Infusions PRN Medications acetaminophen OR acetaminophen, ALPRAZolam, HYDROcodone-acetaminophen, ondansetron OR ondansetron, polyethylene glycol, promethazine Allergy: No Known Allergies OBJECTIVE: Vitals: Patient Vitals for the past 24 hrs: BP Temp Temp src Pulse Resp SpO2 Weight 01/08/19 0733 91/54 98.2 F (36.8 C) Oral 75 18 97 % - 01/08/19 0650 104/58 98.3 F (36.8 C) Oral 82 16 99 % 88.1 kg (194 lb 3.6 oz) 01/08/19 0335 96/54 98.4 F (36.9 C) Oral 67 18 96 % - 01/07/19 2351 97/56 98.5 F (36.9 C) Oral 88 18 96 % - 01/07/19 1956 96/52 98.3 F (36.8 C) Oral 78 18 100 % - 01/07/19 1817 - 98 F (36.7 C) Oral - 20 - - 01/07/19 1554 95/54 98.1 F (36.7 C) Oral 70 14 99 % - 01/07/19 1131 111/55 98.3 F (36.8 C) Oral 69 16 98 % - I&O Detailed Table: Intake/Output Summary (Last 24 hours) at 01/08/19 1054 Last data filed at 01/08/19 0650 Gross per 24 hour Intake 17946 ml Output 12322 ml Net 1092 ml Patient Vitals for the past 96 hrs: Weight 01/08/19 0650 88.1 kg (194 lb 3.6 oz) 01/05/19 1140 74.4 kg (164 lb) 01/05/19 0037 74.4 kg (164 lb) Hemodynamics Last 24hrs: Physical Examination: Constitutional: She was sleeping but arousable. HEENT: Neck supple, no JVD, non icteric sclera. Cardiovascular: Normal rate, S1 and S2 Pulmonary/Chest: Clear bilateral Abdominal: Soft. Does not look like it is tender. Bowel sounds positive no tenderness. Extremeties/Musculoskeletal: Normal range of motion.exhibits no tenderness. exhibits no ed maico. Neurological: Alert and oriented to person, place, and time. Skin: Skin is warm and dry. No rash noted. No erythema. No pallor. Psychiatric: Has a normal mood and affect. Behavior is normal. Judgment normal. Not suicida l LABS: Recent Labs Lab 01/08/1952501/07/19 0518 01/06/19 0529 01/05/19 0542 WBC 11.96* 9.72 11.15* 14.70* HGB 9.4* 10.2* 11.0* 12.3 HCT 28.3* 30.4* 33.7* 37.3 PLT 197 225 267 311 NEUTOPHILPCT 80.70 -- 75.00 78.88 MONOPCT 5.54 -- 6.73 8.10 Recent Labs Lab 01/08/19 0501/07/19 1738 01/07/19 0518 01/06/19 0529 01/05/19 0051 NA 137 134* 134* 134* < > 143 K 3.4* 4.0 2.6* 2.7* < > 2.8* CL 102 101 98* 97* < > 99 CO2 21* 20* 23 23 < > 23 BUN 33* 38* 34* 39* < > 37* CREATININE 13.3* 14.4* 14.0* 15.2* < > 15.32* PROT -- -- 5.4* 6.0* -- 6.8 BILITOT -- -- 0.3 0.4 -- 0.4 ALT -- -- 36 50 -- 53 AST -- -- 17 26 -- 55* < > = values in this interval not displayed. Phosphorus: Lab Results Component Value Date PHOS 8.8 (H) 01/06/2019 Recent Labs Lab 01/08/19 0526 01/07/19 0518 01/06/19 0529 MG 2.0 2.1 2.3 Recent Labs Lab 01/05/19 0542 INR 1.1 Recent Labs Lab 01/05/19 1147 01/05/19 0542 01/05/19 0051 TROPONINI 0.074* 0.073* 0.076* Results No results found for the last 72 hours. Diagnostic Imaging: Impressions only: No results found. PROBLEM LIST Principal Problem: Diverticulitis Active Problems: Gastroesophageal reflux disease without esophagitis Abdominal pain ESRD on peritoneal dialysis Hypokalemia Right ovarian cyst Leukocytosis Anemia in ESRD (end-stage renal disease) (HCC) Left lower quadrant pain Hyperphosphatemia Abnormal EKG Elevated troponin Secondary hyperparathyroidism (HCC) Resolved Problems: * No resolved hospital problems. * ASSESSMENT & PLAN 38 y.o. female with significant past medical history of End-stage renal disease on peritone al dialysis, GERD, chronic nausea, essential hypertension. The patient was discharged recen tly after admission for culture negative peritoneal dialysis catheter associated peritonitis , and was treated with ceftazidime and vancomycin, she was discharged home on oral Ceftin ne ed and Flagyl and presented to the hospital with abdominal pain with CT scan finding consist ent with acute diverticulitis. Principal Problem: Diverticulitis with leukocytosis She is having slight nausea today. Abdominal pain is better. She says she has tolerated a diet. No bloody bowel movement. Continue with current antibiotic treatment at this time. Whi te cell count is slightly elevated and I will monitor her white cell count tomorrow. She was admitted with acute diverticulitis with left lower quadrant pain. I will continue w ith antibiotics for now. White cell count has improved. Active Problems: Hypokalemia Her potassium level has improved. Gastroesophageal reflux disease without esophagitis I will continue with PPI. ESRD on peritoneal dialysis She is on peritoneal dialysis. Right ovarian cyst Follow-up as outpatient. Anemia in ESRD (end-stage renal disease) (HCC) I will continue to monitor Abnormal EKG With Elevated troponin. Slight ST depression with T-wave inversion in anterolateral leads. EKG is a same. She had a good ejection fraction. She is not having any chest pain at this t gordy. If her troponin is going up will have a cardiology evaluation. For now going to continu e to monitor Resolved Problems: * No resolved hospital problems. * Patient diagnosed with: , and I agree with the following nutritional recommendations: CHRIS SMART MD, FACP 01/08/2019 10:54 AM Dictation software, [employer], used which may contain error for similar sounding words even af ter review. Personal communication requested for any clarification. Portions of this chart may have been copied from previous notes for continuity of care purp Linden Gil MD - 01/07/2019 6:00 PM PSTFormatting of this note may be different from the original. [facility] Service: NEPHROLOGY PD/ Progress Note Ramona Hutson Elvin 38 y.o. [id number] [facility] Hospital Day: LOS: 2 days Patient with PMH as listed below admitted with left sided abd pain / divertuculitis Nephrology consulted for evaluation and management of ESRD CHRONIC SEVERE ASSOCIATED WITH FLUID ELECTROLYTE IMBALANCES Assess need for Pd/uf SUBJECTIVE Patient seen and examined cristina pd well Feels weak but better today Improving left sided abdominal pain No CHEST PAIN, SOB, NAUSEA, VOMITING, DIARRHEA, FEVER, COUGH, HEADACHE Past Medical History Diagnosis Date Diverticulitis 01/05/2019 Diverticulosis ESRD on peritoneal dialysis [...] 10/25/15 showed normal sized kidneys. 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 GERD (gastroesophageal reflux disease) Hypercalcemia 09/07/2017 Hyperphosphatemia 10/28/2015 Hypocalcemia 10/28/2015 Hypokalemia 06/04/2017 Itching 10/28/2015 Metabolic acidosis 10/28/2015 Obesity Peritonitis associated with peritoneal dialysis (HCC) 01/24/2017 Peritonitis due to infected peritoneal dialysis catheter (HCC) 12/08/2018 Secondary hyperparathyroidism (HCC) Uremia 10/28/2015 Past Surgical History Procedure Laterality Date ESOPHAGOGASTRODUODENOSCOPY N/A 09/10/2017 Procedure: ESOPHAGOGASTRODUODENOSCOPY; Surgeon: Beena Peters MD; Location: [facility]; Service: Gastroenterology; Laterality: N/A; PERITONEAL CATHETER INSERTION N/A 10/28/2015 Procedure: LAPAROSCOPIC - PERITONEAL DIALYSIS CATH INSERTION; Surgeon: Mundo Ramos MD; Lo cation: [facility]; Service: Vascular; Laterality: N/A; Family History Problem Relation Age of Onset Other (see comments) Mother healthy Diabetes Father Breast cancer Maternal Grandmother Social History Social History Marital status: Spouse name: N/A Number of children: 0 Years of education: N/A Occupational History Not on file. Social History Main Topics Smoking status: Former Smoker Packs/day: 0.25 Quit date: 10/10/2015 Smokeless tobacco: Never Used Alcohol use No Comment: occ Drug use: Yes Types: Marijuana Comment: oil Sexual activity: Yes Partners: Male control/ protection: None Comment: Other Topics Concern Not on file Social History Narrative She lives at home and is a former smoker. Scheduled Medications aspirin 325 mg Oral Daily with breakfast atorvastatin 20 mg Oral Nightly metoprolol 25 mg Oral Daily pantoprazole 40 mg Oral QAM AC piperacillin-tazobactam 2.25 g Intravenous Q12H potassium chloride 20 mEq Oral BID WC sevelamer 800 mg Oral TID WC traZODone 100 mg Oral Nightly Continuous Infusions PRN Medications acetaminophen OR acetaminophen, ALPRAZolam, HYDROcodone-acetaminophen, ondansetron OR ondansetron, polyethylene glycol, promethazine Allergy: No Known Allergies OBJECTIVE Vital Signs: BP 95/54 (BP Location: Left upper arm) | Pulse 70 | Temp 98.1 F (36.7 C) (Oral) | Re sp 14 | Ht 1.575 m (5' 2") | Wt 74.4 kg (164 lb) | SpO2 99% | BMI 30.00 kg/m I&O Detailed Table: I/O last 3 completed shifts: In: 37007 [P.O.:3150; I.V.:1015; Other:53646] Out: 67693 [Other:57179] Weight change: Examination: Family at bedside APPEARANCE: The patient is lying in bed comfortably, answering appropriately VITALS: Reviewed as listed. EYES: Non-icteric sclera. LUNGS: Clear to auscultation bilaterally, no respiratory distress. HEART: S1, S2, no pericardial rub noted. ABDOMEN: Full, soft, left sided tenderness noted. +ve pd catheter in place EXTREMITIES: no pedal edema noted. NEUROLOGIC: No gross focal motor deficit noted, no Asterixis. PSYCH: The patient is awake and alert, mood and affect looks ok LABS: Recent Results (from the past 24 hour(s)) CBC W/Auto Diff (Reflex to Manual) Collection Time: 01/07/19 5:18 AM Result Value Ref Range WBC 9.72 3.80 - 11.00 K/uL RBC 3.40 (L) 3.70 - 5.10 M/uL HGB 10.2 (L) 11.3 - 15.5 g/dL HCT 30.4 (L) 34.0 - 46.0 % MCV 89.5 80.0 - 100.0 fl MCH 30.2 27.0 - 34.0 pg MCHC 33.7 32.0 - 35.5 g/dL RDW SD 48.6 37 - 53 fl PLT 225 150 - 400 K/uL MPV 9.0 fl DIFF TYPE MANUAL Neutrophils Manual 72 % MYELOCYTES 1 % Lymphocytes Manual 18 % Monocytes Manual 6 % Eosinophils Manual 3 % Neutrophils Absolute 7.00 1.90 - 7.40 K/uL Myelocytes Absolute 0.10 (H) 0.00 K/uL Lymphocytes Absolute 1.75 1.00 - 3.90 K/uL Monocytes Absolute 0.58 0.00 - 0.80 K/uL Eosinophils Absolute 0.29 0.00 - 0.50 K/uL Platelet Estimate ADEQUATE MORPHOLOGY RBC AND PLT MORPHOLOGY APPEAR NORMAL Comprehensive metabolic panel Collection Time: 01/07/19 5:18 AM Result Value Ref Range SODIUM 134 (L) 135 - 145 mmol/L POTASSIUM 2.6 (LL) 3.5 - 4.9 mmol/L CHLORIDE 98 (L) 99 - 109 mmol/L CO2 23 23 - 32 mmol/L ANION GAP AGAP 16 5 - 20 mmol/L GLUCOSE 91 65 - 99 mg/dL BUN 34 (H) 8 - 25 mg/dL CREATININE 14.0 (H) 0.50 - 1.00 mg/dL BUN/CREAT 2 CALCIUM 6.8 (L) 8.5 - 10.5 mg/dL TOTAL PROTEIN 5.4 (L) 6.3 - 8.2 g/dL Albumin 2.1 (L) 3.6 - 5.0 g/dL GLOBULIN 3.3 1.3 - 4.9 g/dL A/G 0.6 (L) 1.0 - 2.4 TBIL 0.3 0.1 - 1.5 mg/dL ALK PHOS 46 35 - 115 U/L AST 17 10 - 45 U/L ALT 36 10 - 65 U/L EGFR 3 (L) >60 mL/min/1.73m2 Magnesium Collection Time: 01/07/19 5:18 AM Result Value Ref Range MAGNESIUM 2.1 1.7 - 2.4 mg/dL Imaging No results found. PROBLEM LIST Principal Problem: Diverticulitis Active Problems: Gastroesophageal reflux disease without esophagitis Abdominal pain ESRD on peritoneal dialysis Hypokalemia Right ovarian cyst Leukocytosis Anemia in ESRD (end-stage renal disease) (HCC) Left lower quadrant pain Hyperphosphatemia Abnormal EKG Elevated troponin Secondary hyperparathyroidism (HCC) ASSESSMENT & PLAN ESRD ON PD Tolerating pd/uf well, d/w pd rn Assess daily for need for pd & uf Orders in the chart Fluid restriction 1.2 litres/24 hours Strict I & O Daily RFP Renal diet Daily weights will help with subsequent pd with uf Dose all meds per protocol for ESRD on pd HYPOKALEMIA REPLACE TO KEEP k GREATER THAN 3.8 Follow k LEVEL Lab Results Component Value Date K 2.6 (LL) 01/07/2019 K 2.7 (LL) 01/06/2019 K 2.9 (L) 01/05/2019 ANEMIA in ESRD EPOGEN TO KEEP HGB 10-11 Lab Results Component Value Date HGB 10.2 (L) 01/07/2019 HGB 11.0 (L) 01/06/2019 HGB 12.3 01/05/2019 FERRITIN 56 10/27/2015 LABIRON 12 (L) 10/27/2015 HYPERTENSION bp on low side asymtomatic WATCH BP CLOSELY DURING HOSPITALIZATION LOW NA DIET Will adjust BP meds according to BP readings BP Readings from Last 3 Encounters: 01/07/19 95/54 12/27/18 104/63 12/10/18 118/83 HYPERPHOSPHATEMIA Improving LOW P DIET PO4 BINDERS renvela with meals Lab Results Component Value Date PHOS 8.8 (H) 01/06/2019 PHOS 11.2 (HH) 01/05/2019 PHOS 11.7 (HH) 01/05/2019 HYPOALBUMINEMIA INCREASE PROTEIN INTAKE Lab Results Component Value Date ALB 2.1 (L) 01/07/2019 ALB 2.4 (L) 01/06/2019 ALB 4.1 01/05/2019 Diverticulitis per primary team CASE DISCUSSED IN DETAIL WITH PATIENT/ care team, ANSWERS ALL QUESTIONS IN DETAIL, VERBALIZ ES UNDERSTANDING LINDEN AYAN MONTE MD 01/07/2019 JUAN F WHITLEY Seen earlier and charting completed later Dictation software, [employer], used which may contain error for similar sounding words even af ter review. Personal communication requested for any clarification. Portions of my notes may have been carried over for continuity of care. Chris Smart MD - 01/07/2019 9:50 AM PSTFormatting of this note may be different from victor manuel mckeon. [facility] Service: Hospitalist Progress Note Pt: Ramona Oconnor AGE/SEX: 38 y.o. female ROOM: [facility]/431-1 : 1980 PCP: JUAN F WHITLEY ADMIT DATE: 01/05/2019 TODAY'S DATE: 01/07/2019 Hospital Day/Hospital Course: LOS: 2 days 38 y.o. female with significant past medical history of End-stage renal disease on peritone al dialysis, GERD, chronic nausea, essential hypertension. The patient was discharged recen tly after admission for culture negative peritoneal dialysis catheter associated peritonitis , and was treated with ceftazidime and vancomycin, she was discharged home on oral Ceftin ne ed and Flagyl and presented to the hospital with abdominal pain with CT scan finding consist ent with acute diverticulitis. SUBJECTIVE: Patient seen and examine. She is feeling much better. No more abdominal pain. She tolerated diet yesterday. No chest pain, SOB, SARABIA. No cough on recumbency. Had no orthopnea or PND. . Still feeling tired and fatigued. No dizziness or lightheadedness. Scheduled Medications: aspirin 325 mg Oral Daily with breakfast atorvastatin 20 mg Oral Nightly metoprolol 25 mg Oral Daily pantoprazole 40 mg Oral QAM AC piperacillin-tazobactam 2.25 g Intravenous Q12H potassium chloride 20 mEq Oral BID WC potassium CHLORIDE 60 mEq Intravenous Once sevelamer 800 mg Oral TID WC traZODone 100 mg Oral Nightly Continuous Infusions PRN Medications acetaminophen OR acetaminophen, ALPRAZolam, HYDROcodone-acetaminophen, ondansetron OR ondansetron, polyethylene glycol, promethazine Allergy: No Known Allergies OBJECTIVE: Vitals: Patient Vitals for the past 24 hrs: BP Temp Temp src Pulse Resp SpO2 Weight 01/07/19 0711 97/56 98.4 F (36.9 C) Oral 69 14 97 % - 01/07/19 0645 - 98.3 F (36.8 C) Oral - 16 - - 01/07/19 0331 94/51 98 F (36.7 C) Oral 86 14 98 % - 01/06/19 2321 101/58 98 F (36.7 C) Oral 58 16 99 % - 01/06/19 2032 108/58 98.4 F (36.9 C) Oral 87 16 100 % - 01/06/19 1845 90/54 98.1 F (36.7 C) Oral 64 16 98 % - 01/06/19 1733 103/61 98.2 F (36.8 C) Oral - 18 98 % - 01/06/19 1215 (!) 89/60 97.8 F (36.6 C) Oral 68 18 100 % - 01/06/19 1030 92/51 - - 82 - - - 01/06/19 1011 92/58 - - - - - - 01/06/19 1010 92/50 - - 80 - - - 01/06/19 0958 (!) 80/43 - - 86 - - - I&O Detailed Table: Intake/Output Summary (Last 24 hours) at 01/07/19 0950 Last data filed at 01/07/19 0645 Gross per 24 hour Intake 36798 ml Output 35881 ml Net 2724 ml Patient Vitals for the past 96 hrs: Weight 01/05/19 1140 74.4 kg (164 lb) 01/05/19 0037 74.4 kg (164 lb) Hemodynamics Last 24hrs: Physical Examination: Constitutional: She is awake and alert and talking to me appropriately HEENT: Neck supple, no JVD, non icteric sclera. Cardiovascular: Normal rate, regular rhythm, normal heart sounds with S1 and S2, and intact distal pulses. Exam reveals no gallop and no friction rub. No murmur heard. Pulmonary/Chest: Clear bilateral Abdominal: Soft. Does not look like it is tender. Bowel sounds positive no tenderness. Extremeties/Musculoskeletal: Normal range of motion.exhibits no tenderness. exhibits no ed maico. Neurological: Alert and oriented to person, place, and time. Skin: Skin is warm and dry. No rash noted. No erythema. No pallor. Psychiatric: Has a normal mood and affect. Behavior is normal. Judgment normal. Not suicida l LABS: Recent Labs Lab 01/07/1951701/06/1952801/05/19 0542 01/05/19 0051 WBC 9.72 11.15* 14.70* 15.65* HGB 10.2* 11.0* 12.3 12.7 HCT 30.4* 33.7* 37.3 37.4 PLT 225 267 311 337 NEUTOPHILPCT -- 75.00 78.88 81.32 MONOPCT -- 6.73 8.10 7.85 Recent Labs Lab 01/07/1951701/06/1952801/05/19 0542 01/05/19 0051 NA 134* 134* 138 143 K 2.6* 2.7* 2.9* 2.8* CL 98* 97* 96* 99 CO2 23 23 23 23 BUN 34* 39* 41* 37* CREATININE 14.0* 15.2* 16.7* 15.32* PROT 5.4* 6.0* -- 6.8 BILITOT 0.3 0.4 -- 0.4 ALT 36 50 -- 53 AST 17 26 -- 55* Phosphorus: Lab Results Component Value Date PHOS 8.8 (H) 01/06/2019 Recent Labs Lab 01/07/1951727/19 0529 01/05/19 0542 MG 2.1 2.3 2.4 Recent Labs Lab 01/05/19 0542 INR 1.1 Recent Labs Lab 01/05/19 1147 01/05/19 0542 01/05/19 0051 TROPONINI 0.074* 0.073* 0.076* Results No results found for the last 72 hours. Diagnostic Imaging: Impressions only: No results found. PROBLEM LIST Principal Problem: Diverticulitis Active Problems: Gastroesophageal reflux disease without esophagitis Abdominal pain ESRD on peritoneal dialysis Hypokalemia Right ovarian cyst Leukocytosis Anemia in ESRD (end-stage renal disease) (HCC) Left lower quadrant pain Hyperphosphatemia Abnormal EKG Elevated troponin Secondary hyperparathyroidism (HCC) Resolved Problems: * No resolved hospital problems. * ASSESSMENT & PLAN 38 y.o. female with significant past medical history of End-stage renal disease on peritone al dialysis, GERD, chronic nausea, essential hypertension. The patient was discharged recen tly after admission for culture negative peritoneal dialysis catheter associated peritonitis , and was treated with ceftazidime and vancomycin, she was discharged home on oral Ceftin ne ed and Flagyl and presented to the hospital with abdominal pain with CT scan finding consist ent with acute diverticulitis. Principal Problem: Diverticulitis with leukocytosis Her abdominal pain has resolved. She has tolerated full liquid diet. I am going to Advance the diet as tolerated. She was admitted with acute diverticulitis with left lower quadrant pain. I will continue with antibiotics for now. White cell count has improved. Active Proble ms: Hypokalemia Her potassium is still low. I will place her on standing potassium order. Gastroesophageal reflux disease without esophagitis I will continue with PPI. ESRD on peritoneal dialysis She is on peritoneal dialysis. Right ovarian cyst Follow-up as outpatient. Anemia in ESRD (end-stage renal disease) (HCC) I will continue to monitor Abnormal EKG With Elevated troponin. Slight ST depression with T-wave inversion in anterolateral leads. EKG is a same. She had a good ejection fraction. She is not having any chest pain at this t gordy. If her troponin is going up will have a cardiology evaluation. For now going to continu e to monitor Resolved Problems: * No resolved hospital problems. * Patient diagnosed with: , and I agree with the following nutritional recommendations: CHRIS SMART MD, FACP 01/07/2019 9:50 AM Dictation software, [employer], used which may contain error for similar sounding words even af ter review. Personal communication requested for any clarification. Portions of this chart may have been copied from previous notes for continuity of care purp Chris Hannon MD - 01/06/2019 12:07 PM PSTFormatting of this note may be different from [place]or [place] original. [facility] Service: Hospitalist Progress Note Pt: Ramona Oconnor AGE/SEX: 38 y.o. female ROOM: [address] [place] [address] : 1980 PCP: JUAN F WHITLEY ADMIT DATE: 01/05/2019 TODAY'S DATE: 01/06/2019 Hospital Day/Hospital Course: LOS: 1 day 38 y.o. female with significant past medical history of End-stage renal disease on peritone al dialysis, GERD, chronic nausea, essential hypertension. The patient was discharged recen tly after admission for culture negative peritoneal dialysis catheter associated peritonitis , and was treated with ceftazidime and vancomycin, she was discharged home on oral Ceftin ne ed and Flagyl and presented to the hospital with abdominal pain with CT scan finding consist ent with acute diverticulitis. SUBJECTIVE: Patient seen and examine. Complaint of abdominal pain has improved. She says she wants to e at something more than clear liquid. No chest pain, SOB, SARABIA. No cough on recumbency. Had no orthopnea or PND. . Still feeling tired and fatigued. No dizziness or lightheadedness. Scheduled Medications: aspirin 325 mg Oral Daily with breakfast atorvastatin 20 mg Oral Nightly metoprolol 25 mg Oral Daily pantoprazole 40 mg Oral QAM AC piperacillin-tazobactam 2.25 g Intravenous Q12H potassium CHLORIDE 40 mEq Intravenous Once sevelamer 800 mg Oral TID WC traZODone 100 mg Oral Nightly Continuous Infusions PRN Medications acetaminophen OR acetaminophen, ALPRAZolam, HYDROcodone-acetaminophen, ondansetron OR ondansetron, polyethylene glycol Allergy: No Known Allergies OBJECTIVE: Vitals: Patient Vitals for the past 24 hrs: BP Temp Temp src Pulse Resp SpO2 Weight 01/06/19 1030 92/51 - - 82 - - - 01/06/19 1011 92/58 - - - - - - 01/06/19 1010 92/50 - - 80 - - - 01/06/19 0958 (!) 80/43 - - 86 - - - 01/06/19 0945 (!) 80/49 - - 88 - - - 01/06/19 0930 93/54 - - 88 - - - 01/06/19 0915 93/53 - - 86 - - - 01/06/19 0900 (!) 75/43 - - 84 - - - 01/06/19 0845 (!) 83/50 - - 84 - - - 01/06/19 0830 (!) 85/48 - - 80 - - - 01/06/19 0740 97/56 98.1 F (36.7 C) Oral 68 16 98 % - 01/06/19 0714 (!) 89/55 97.8 F (36.6 C) Oral 66 16 100 % - 01/06/19 0340 95/51 98.1 F (36.7 C) Oral 71 16 96 % - 01/05/19 2326 93/51 97.3 F (36.3 C) Oral 65 18 98 % - 01/05/19 1914 97/56 97.6 F (36.4 C) Axillary 69 17 99 % - 01/05/19 1630 91/52 97.9 F (36.6 C) Axillary 64 16 98 % - 01/05/19 1533 96/55 98.1 F (36.7 C) Oral 73 16 100 % - 01/05/19 1339 97/52 - - 64 - - - I&O Detailed Table: Intake/Output Summary (Last 24 hours) at 01/06/19 1207 Last data filed at 01/06/19 0740 Gross per 24 hour Intake 81533 ml Output 56032 ml Net 425 ml Patient Vitals for the past 96 hrs: Weight 01/05/19 1140 74.4 kg (164 lb) 01/05/19 0037 74.4 kg (164 lb) Hemodynamics Last 24hrs: Physical Examination: Constitutional: Alert and oriented to person, place, and time. She is awake and alert. HEENT: Neck supple, no JVD, non icteric sclera. Cardiovascular: Normal rate, regular rhythm, normal heart sounds with S1 and S2, and intact distal pulses. Exam reveals no gallop and no friction rub. No murmur heard. Pulmonary/Chest: Effort normal and breath sounds normal. No stridor. No respiratory distres s. no wheezes. no rales. exhibits no tenderness. Abdominal: Soft. Does not look like it is tender. Extremeties/Musculoskeletal: Normal range of motion.exhibits no tenderness. exhibits no ed maico. Neurological: Alert and oriented to person, place, and time. Skin: Skin is warm and dry. No rash noted. No erythema. No pallor. Psychiatric: Has a normal mood and affect. Behavior is normal. Judgment normal. Not suicida l LABS: Recent Labs Lab 01/06/19 0501/05/19 0542 01/05/19 005 WBC 11.15* 14.70* 15.65* HGB 11.0* 12.3 12.7 HCT 33.7* 37.3 37.4 PLT 267 311 337 NEUTOPHILPCT 75.00 78.88 81.32 MONOPCT 6.73 8.10 7.85 Recent Labs Lab 01/06/19 0529 01/05/19 0542 01/05/19 005 NA 134* 138 143 K 2.7* 2.9* 2.8* CL 97* 96* 99 CO2 23 23 23 BUN 39* 41* 37* CREATININE 15.2* 16.7* 15.32* PROT 6.0* -- 6.8 BILITOT 0.4 -- 0.4 ALT 50 -- 53 AST 26 -- 55* Phosphorus: Lab Results Component Value Date PHOS 8.8 (H) 01/06/2019 Recent Labs Lab 01/06/19 0529 01/05/19 0542 01/05/19 005 MG 2.3 2.4 2.1 Recent Labs Lab 01/05/19 05 INR 1.1 Recent Labs Lab 01/05/19 1147 01/05/19 0542 01/05/19 005 TROPONINI 0.074* 0.073* 0.076* Results No results found for the last 72 hours. Diagnostic Imaging: Impressions only: No results found. PROBLEM LIST Principal Problem: Diverticulitis Active Problems: Gastroesophageal reflux disease without esophagitis Abdominal pain ESRD on peritoneal dialysis Hypokalemia Right ovarian cyst Leukocytosis Anemia in ESRD (end-stage renal disease) (HCC) Left lower quadrant pain Hyperphosphatemia Abnormal EKG Elevated troponin Secondary hyperparathyroidism (HCC) Resolved Problems: * No resolved hospital problems. * ASSESSMENT & PLAN 38 y.o. female with significant past medical history of End-stage renal disease on peritone al dialysis, GERD, chronic nausea, essential hypertension. The patient was discharged recen tly after admission for culture negative peritoneal dialysis catheter associated peritonitis , and was treated with ceftazidime and vancomycin, she was discharged home on oral Ceftin ne ed and Flagyl and presented to the hospital with abdominal pain with CT scan finding consist ent with acute diverticulitis. Principal Problem: Diverticulitis with leukocytosis She was admitted with acute diverticulitis with left lower quadrant pain. I will continue with antibiotics for now. White cell count slightly improved. Active Problems: Hypokalemia Will replace potassium and will follow K level Gastroesophageal reflux disease without esophagitis I will continue with PPI. ESRD on peritoneal dialysis She missed her peritoneal dialysis. Also having a hyperphosphatemia along with Hypokalem ia. She will need dialysis. Right ovarian cyst Follow-up as outpatient. Anemia in ESRD (end-stage renal disease) (HCC) I will continue to monitor Abnormal EKG With Elevated troponin. Slight ST depression with T-wave inversion in anterolateral leads. EKG is a same. She had a good ejection fraction. She is not having any chest pain at this t gordy. If her troponin is going up will have a cardiology evaluation. For now going to continu e to monitor Resolved Problems: * No resolved hospital problems. * Patient diagnosed with: , and I agree with the following nutritional recommendations: CHRIS SMART MD, FACP 01/06/2019 12:07 PM Dictation software, [employer], used which may contain error for similar sounding words even af ter review. Personal communication requested for any clarification. Portions of this chart may have been copied from previous notes for continuity of care purp Linden Gil MD - 01/06/2019 12:03 PM PSTFormatting of this note may be different from the original. [facility] Service: NEPHROLOGY PD/ Progress Note Ramona Oconnor 38 y.o. 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 GERD (gastroesophageal reflux disease) Hypercalcemia 09/07/2017 Hyperphosphatemia 10/28/2015 Hypocalcemia 10/28/2015 Hypokalemia 06/04/2017 Itching 10/28/2015 Metabolic acidosis 10/28/2015 Obesity Peritonitis associated with peritoneal dialysis (HCC) 01/24/2017 Peritonitis due to infected peritoneal dialysis catheter (HCC) 12/08/2018 Secondary hyperparathyroidism (HCC) Uremia 10/28/2015 Past Surgical History Procedure Laterality Date ESOPHAGOGASTRODUODENOSCOPY N/A 09/10/2017 Procedure: ESOPHAGOGASTRODUODENOSCOPY; Surgeon: Beena Peters MD; Location: [facility]; Service: Gastroenterology; Laterality: N/A; PERITONEAL CATHETER INSERTION N/A 10/28/2015 Procedure: LAPAROSCOPIC - PERITONEAL DIALYSIS CATH INSERTION; Surgeon: Mundo Ramos MD; Lo cation: [facility]; Service: Vascular; Laterality: N/A; Family History Problem Relation Age of Onset Other (see comments) Mother healthy Diabetes Father Breast cancer Maternal Grandmother Social History Social History Marital status: Spouse name: N/A Number of children: 0 Years of education: N/A Occupational History Not on file. Social History Main Topics Smoking status: Former Smoker Packs/day: 0.25 Quit date: 10/10/2015 Smokeless tobacco: Never Used Alcohol use No Comment: occ Drug use: Yes Types: Marijuana Comment: oil Sexual activity: Yes Partners: Male control/ protection: None Comment: Other Topics Concern Not on file Social History Narrative She lives at home and is a former smoker. Scheduled Medications aspirin 325 mg Oral Daily with breakfast atorvastatin 20 mg Oral Nightly metoprolol 25 mg Oral Daily pantoprazole 40 mg Oral QAM AC piperacillin-tazobactam 2.25 g Intravenous Q12H potassium CHLORIDE 40 mEq Intravenous Once sevelamer 800 mg Oral TID WC traZODone 100 mg Oral Nightly Continuous Infusions PRN Medications acetaminophen OR acetaminophen, ALPRAZolam, HYDROcodone-acetaminophen, ondansetron OR ondansetron, polyethylene glycol Allergy: No Known Allergies OBJECTIVE Vital Signs: BP 92/51 | Pulse 82 | Temp 98.1 F (36.7 C) (Oral) | Resp 16 | Ht 1.575 m (5' 2") | Wt 74.4 kg (164 lb) | SpO2 98% | BMI 30.00 kg/m I&O Detailed Table: I/O last 3 completed shifts: In: 1350 [P.O.:1100; I.V.:225; IV Piggyback:25] Out: - Weight change: 0 kg (0 lb) Examination: Family/ floor rn karla at bedside APPEARANCE: The patient is lying in no apparent distress, sleepy but arousable VITALS: Reviewed as listed. EYES: Non-icteric sclera. LUNGS: Clear to auscultation bilaterally. HEART: S1, S2, no pericardial rub noted. ABDOMEN: Full, soft, left sided tenderness noted. +ve pd catheter in place EXTREMITIES: no pedal edema noted. NEUROLOGIC: No gross focal motor deficit noted, no Asterixis. PSYCH: The patient is sleepy but arousable, mood and affect looks dysphoric LABS: Recent Results (from the past 24 hour(s)) CBC W/Auto Diff (Reflex to Manual) Collection Time: 01/06/19 5:29 AM Result Value Ref Range WBC 11.15 (H) 3.80 - 11.00 K/uL RBC 3.77 3.70 - 5.10 M/uL HGB 11.0 (L) 11.3 - 15.5 g/dL HCT 33.7 (L) 34.0 - 46.0 % MCV 89.5 80.0 - 100.0 fl MCH 29.2 27.0 - 34.0 pg MCHC 32.6 32.0 - 35.5 g/dL RDW SD 49.0 37 - 53 fl PLT 267 150 - 400 K/uL MPV 9.1 fl DIFF TYPE AUTOMATED NEUTROPHILS 75.00 % LYMPHOCYTES 16.11 % MONOCYTES 6.73 % EOSINOPHILS 1.65 % BASOPHILS 0.51 % NEUTROPHILS ABS 8.36 (H) 1.90 - 7.40 K/uL LYMPHOCYTES ABS 1.80 1.00 - 3.90 K/uL MONOCYTES ABS 0.75 0.00 - 0.80 K/uL EOSINOPHILS ABS 0.18 0.00 - 0.50 K/uL BASOPHILS ABS 0.06 0.00 - 0.10 K/uL Magnesium Collection Time: 01/06/19 5:29 AM Result Value Ref Range MAGNESIUM 2.3 1.7 - 2.4 mg/dL Comprehensive metabolic panel Collection Time: 01/06/19 5:29 AM Result Value Ref Range SODIUM 134 (L) 135 - 145 mmol/L POTASSIUM 2.7 (LL) 3.5 - 4.9 mmol/L CHLORIDE 97 (L) 99 - 109 mmol/L CO2 23 23 - 32 mmol/L ANION GAP AGAP 17 5 - 20 mmol/L GLUCOSE 117 (H) 65 - 99 mg/dL BUN 39 (H) 8 - 25 mg/dL CREATININE 15.2 (H) 0.50 - 1.00 mg/dL BUN/CREAT 3 CALCIUM 7.8 (L) 8.5 - 10.5 mg/dL TOTAL PROTEIN 6.0 (L) 6.3 - 8.2 g/dL Albumin 2.4 (L) 3.6 - 5.0 g/dL GLOBULIN 3.6 1.3 - 4.9 g/dL A/G 0.7 (L) 1.0 - 2.4 TBIL 0.4 0.1 - 1.5 mg/dL ALK PHOS 56 35 - 115 U/L AST 26 10 - 45 U/L ALT 50 10 - 65 U/L EGFR 3 (L) >60 mL/min/1.73m2 Phosphorus Collection Time: 01/06/19 5:29 AM Result Value Ref Range PHOSPHORUS 8.8 (H) 2.3 - 4.8 mg/dL C-reactive protein Collection Time: 01/06/19 5:29 AM Result Value Ref Range CRP 0.3 <0.5 mg/dL Imaging No results found. PROBLEM LIST Principal Problem: Diverticulitis Active Problems: Gastroesophageal reflux disease without esophagitis Abdominal pain ESRD on peritoneal dialysis Hypokalemia Right ovarian cyst Leukocytosis Anemia in ESRD (end-stage renal disease) (HCC) Left lower quadrant pain Hyperphosphatemia Abnormal EKG Elevated troponin Secondary hyperparathyroidism (HCC) ASSESSMENT & PLAN ESRD ON PD Tolerating pd/uf well, d/w pd rn Assess daily for need for pd & uf Orders in the chart Fluid restriction 1.2 litres/24 hours Strict I & O Daily RFP Renal diet Daily weights will help with subsequent pd with uf Dose all meds per protocol for ESRD on pd HYPOKALEMIA REPLACE TO KEEP k GREATER THAN 3.8 Follow k LEVEL Lab Results Component Value Date K 2.7 (LL) 01/06/2019 K 2.9 (L) 01/05/2019 K 2.8 (L) 01/05/2019 ANEMIA in ESRD EPOGEN TO KEEP HGB 10-11 Lab Results Component Value Date HGB 11.0 (L) 01/06/2019 HGB 12.3 01/05/2019 HGB 12.7 01/05/2019 FERRITIN 56 10/27/2015 LABIRON 12 (L) 10/27/2015 HYPERTENSION bp on low side asymtomatic WATCH BP CLOSELY DURING HOSPITALIZATION LOW NA DIET Will adjust BP meds according to BP readings BP Readings from Last 3 Encounters: 01/06/19 92/51 12/27/18 104/63 12/10/18 118/83 HYPERPHOSPHATEMIA Improving LOW P DIET PO4 BINDERS renvela with meals Lab Results Component Value Date PHOS 8.8 (H) 01/06/2019 PHOS 11.2 (HH) 01/05/2019 PHOS 11.7 (HH) 01/05/2019 HYPOALBUMINEMIA INCREASE PROTEIN INTAKE Lab Results Component Value Date ALB 2.4 (L) 01/06/2019 ALB 4.1 01/05/2019 ALB 3.9 12/26/2018 Diverticulitis per primary team CASE DISCUSSED IN DETAIL WITH PATIENT/ care team, ANSWERS ALL QUESTIONS IN DETAIL, VERBALIZ ES UNDERSTANDING LINDEN MONTE MD 01/06/2019 JUAN F QUAEMPGORAN Seen earlier and charting completed later Dictation software, [employer], used which may contain error for similar sounding words even af ter review. Personal communication requested for any clarification. Portions of my notes may have been carried over for continuity of care. in this encounter Plan of Treatment Not on fileas of this encounter Procedures + +--------+ + + + | Procedure Name | Priori | Date/Time | Associated Diagnosis | Comments | | | ty | | | | + +--------+ + + + | CBC W/AUTO DIFF | Routin | 01/09/2019 | | Results for this | | (REFLEX TO MANUAL) | e - AM | 5:46 AM | | procedure are in the | | | | PST | | results section. | + +--------+ + + + | MAGNESIUM | Routin | 01/09/2019 | | Results for this | | | e - AM | 5:46 AM | | procedure are in the | | | | PST | | results section. | + +--------+ + + + | BASIC METABOLIC | Routin | 01/09/2019 | | Results for this | | PANEL | e - AM | 5:46 AM | | procedure are in the | | | | PST | | results section. | + +--------+ + + + | CBC W/AUTO DIFF | Routin | 01/08/2019 | | Results for this | | (REFLEX TO MANUAL) | e - AM | 5:26 AM | | procedure are in the | | | | PST | | results section. | + +--------+ + + + | MAGNESIUM | Routin | 01/08/2019 | | Results for this | | | e - AM | 5:26 AM | | procedure are in the | | | | PST | | results section. | + +--------+ + + + | BASIC METABOLIC | Routin | 01/08/2019 | | Results for this | | PANEL | e - AM | 5:26 AM | | procedure are in the | | | | PST | | results section. | + +--------+ + + + | BASIC METABOLIC | Routin | 01/07/2019 | | Results for this | | PANEL | e | 5:38 PM | | procedure are in the | | | | PST | | results section. | + +--------+ + + + | CBC W/AUTO DIFF | Routin | 01/07/2019 | | Results for this | | (REFLEX TO MANUAL) | e - AM | 5:18 AM | | procedure are in the | | | | PST | | results section. | + +--------+ + + + | MAGNESIUM | Routin | 01/07/2019 | | Results for this | | | e - AM | 5:18 AM | | procedure are in the | | | | PST | | results section. | + +--------+ + + + | COMPREHENSIVE | Routin | 01/07/2019 | | Results for this | | METABOLIC PANEL | e - AM | 5:18 AM | | procedure are in the | | | | PST | | results section. | + +--------+ + + + | PROCALCITONIN | Add-On | 01/06/2019 | | Results for this | | | | 5:29 AM | | procedure are in the | | | | PST | | results section. | + +--------+ + + + | CBC W/AUTO DIFF | Routin | 01/06/2019 | | Results for this | | (REFLEX TO MANUAL) | e - AM | 5:29 AM | | procedure are in the | | | | PST | | results section. | + +--------+ + + + | C-REACTIVE PROTEIN | Add-On | 01/06/2019 | | Results for this | | | | 5:29 AM | | procedure are in the | | | | PST | | results section. | + +--------+ + + + | PHOSPHOROUS | Routin | 01/06/2019 | | Results for this | | | e - AM | 5:29 AM | | procedure are in the | | | | PST | | results section. | + +--------+ + + + | MAGNESIUM | Routin | 01/06/2019 | | Results for this | | | e - AM | 5:29 AM | | procedure are in the | | | | PST | | results section. | + +--------+ + + + | COMPREHENSIVE | Routin | 01/06/2019 | | Results for this | | METABOLIC PANEL | e - AM | 5:29 AM | | procedure are in the | | | | PST | | results section. | + +--------+ + + + | TROPONIN I | Timed | 01/05/2019 | | Results for this | | | | 11:47 AM | | procedure are in the | | | | PST | | results section. | + +--------+ + + + | TROPONIN I | Timed | 01/05/2019 | | Results for this | | | | 5:42 AM | | procedure are in the | | | | PST | | results section. | + +--------+ + + + | PROTIME-INR | Routin | 01/05/2019 | | Results for this | | | e - AM | 5:42 AM | | procedure are in the | | | | PST | | results section. | + +--------+ + + + | CBC W/AUTO DIFF | Routin | 01/05/2019 | | Results for this | | (REFLEX TO MANUAL) | e - AM | 5:42 AM | | procedure are in the | | | | PST | | results section. | + +--------+ + + + | PHOSPHOROUS | Routin | 01/05/2019 | | Results for this | | | e - AM | 5:42 AM | | procedure are in the | | | | PST | | results section. | + +--------+ + + + | MAGNESIUM | Routin | 01/05/2019 | | Results for this | | | e - AM | 5:42 AM | | procedure are in the | | | | PST | | results section. | + +--------+ + + + | LIPID PANEL | Routin | 01/05/2019 | | Results for this | | | e | 5:42 AM | | procedure are in the | | | | PST | | results section. | + +--------+ + + + | BASIC METABOLIC | Routin | 01/05/2019 | | Results for this | | PANEL | e - AM | 5:42 AM | | procedure are in the | | | | PST | | results section. | + +--------+ + + + | EKG 12 LEAD UNIT | Routin | 01/05/2019 | | Results for this | | PERFORMED | e | 12:55 AM | | procedure are in the | | | | PST | | results section. | + +--------+ + + + | TROPONIN I | STAT | 01/05/2019 | | Results for this | | | | 12:51 AM | | procedure are in the | | | | PST | | results section. | + +--------+ + + + | CBC W/AUTO DIFF | STAT | 01/05/2019 | | Results for this | | (REFLEX TO MANUAL) | | 12:51 AM | | procedure are in the | | | | PST | | results section. | + +--------+ + + + | PHOSPHOROUS | STAT | 01/05/2019 | | Results for this | | | | 12:51 AM | | procedure are in the | | | | PST | | results section. | + +--------+ + + + | MAGNESIUM | STAT | 01/05/2019 | | Results for this | | | | 12:51 AM | | procedure are in the | | | | PST | | results section. | + +--------+ + + + | COMPREHENSIVE | STAT | 01/05/2019 | | Results for this | | METABOLIC PANEL | | 12:51 AM | | procedure are in the | | | | PST | | results section. | + +--------+ + + + | ED INFORMATION | Routin | 01/04/2019 | | Results for this | | EXCHANGE | e | 10:36 PM | | procedure are in the | | | | PST | | results section. | + +--------+ + + + in this encounter Results Magnesium (01/09/2019 5:46 AM) + + + + + | Component | Value | Ref Range | Performed At | + + + + + | MAGNESIUM | 2.0Comment: Testing | 1.7 - 2.4 mg/dL | [facility] | | | performed at [facility], [address] | | LABORATORY | | | [facility], | | | | | [place] [address] | | | + + + + + + + | Specimen | + + | Blood | + + + + + + + | Performing | Address | City/State/Zipcode | Phone Number | | Organization | | | | + + + + + | [facility] | [address] | [place] [address] | [phone] | | LABORATORY | [address] | | | + + + + + Basic metabolic panel (01/09/2019 5:46 AM) + + + + + | Component | Value | Ref Range | Performed At | + + + + + | SODIUM | 140 | 135 - 145 mmol/L | [facility] | | | | | LABORATORY | + + + + + | POTASSIUM | 4.2 | 3.5 - 4.9 mmol/L | [facility] | | | | | LABORATORY | + + + + + | CHLORIDE | 105 | 99 - 109 mmol/L | [facility] [...] + + + + | GLUCOSE | 70 | 65 - 99 mg/dL | [facility] | | | | | LABORATORY | + + + + + | BUN | 32 (H) | 8 - 25 mg/dL | [facility] | | | | | LABORATORY | + + + + + | CREATININE | 13.2 (H) | 0.50 - 1.00 mg/dL | [facility] | | | | | LABORATORY | + + + + + | BUN/CREAT | 2 | | [facility] | | | | | LABORATORY | + + + + + | CALCIUM | 7.1 (L) | 8.5 - 10.5 mg/dL | [facility] | | | | | LABORATORY | + + + + + | EGFR | 3 (L)Comment: GFR <60: | >60 mL/min/1.73m2 | [facility] | | | CHRONIC KIDNEY DISEASE, | [...] | | | | | performed at [facility], [address] | | | | [facility], | | | | | [place] [address] | | | + + + + + + + | Specimen | + + | Blood | + + + + + + + | Performing | Address | City/State/Zipcode | Phone Number | | Organization | | | | + + + + + | [facility] | [address] | [place] [address] | [phone] | | LABORATORY | Any. | | | + + + + + CBC W/Auto Diff (Reflex to Manual) (01/09/2019 5:46 AM) + + + + + | Component | Value | Ref Range | Performed At | + + + + + | WBC | 11.16 (H) | 3.80 - 11.00 K/uL | [facility] | | | | | LABORATORY | + + + + + | RBC | 3.32 (L) | 3.70 - 5.10 M/uL | [facility] | | | | | LABORATORY | + + + + + | HGB | 10.0 (L) | 11.3 - 15.5 g/dL | [facility] | | | | | LABORATORY | + + + + + | HCT | 30.2 (L) | 34.0 - 46.0 % | [facility] | | | | | LABORATORY | + + + + + | MCV | 91.1 | 80.0 - 100.0 fl | [facility] | | | | | LABORATORY | + + + + + | MCH | 30.3 | 27.0 - 34.0 pg | [facility] | | | | | LABORATORY | + + + + + | MCHC | 33.2 | 32.0 - 35.5 g/dL | [facility] | | | | | LABORATORY | + + + + + | RDW SD | 51.6 | 37 - 53 fl | [facility] | | | | | LABORATORY | + + + + + | PLT | 201 | 150 - 400 K/uL | [facility] | | | | | LABORATORY | + + + + + | MPV | 9.5 | fl | [facility] | | | | | LABORATORY | + + + + + | DIFF TYPE | AUTOMATED | | [facility] | | | | | LABORATORY | + + + + + | NEUTROPHILS | 77.04 | % | [facility] | | | | | LABORATORY | + + + + + | LYMPHOCYTES | 13.84 | % | [facility] | | | | | LABORATORY | + + + + + | MONOCYTES | 6.01 | % | [facility] | | | | | LABORATORY | + + + + + | EOSINOPHILS | 2.62 | % | [facility] | | | | | LABORATORY | + + + + + | BASOPHILS | 0.49 | % | [facility] | | | | | LABORATORY | + + + + + | NEUTROPHILS ABS | 8.59 (H) | 1.90 - 7.40 K/uL | [facility] | | | | | LABORATORY | + + + + + | LYMPHOCYTES ABS | 1.54 | 1.00 - 3.90 K/uL | [facility] | | | | | LABORATORY | + + + + + | MONOCYTES ABS | 0.67 | 0.00 - 0.80 K/uL | [facility] | | | | | LABORATORY | + + + + + | EOSINOPHILS ABS | 0.29 | 0.00 - 0.50 K/uL | [facility] | | | | | LABORATORY | + + + + + | BASOPHILS ABS | 0.06Comment: Testing | 0.00 - 0.10 K/uL | [facility] | | | performed at [facility], [address] | | LABORATORY | | | [address], | | | | | [place] [address] | | | + + + + + + + | Specimen | + + | Blood | + + + + + + + | Performing | Address | City/State/Zipcode | Phone Number | | Organization | | | | + + + + + | [facility] | [address] | [place] [address] | [phone] | | LABORATORY | [address] | | | + + + + + Magnesium (01/08/2019 5:26 AM) + + + + + | Component | Value | Ref Range | Performed At | + + + + + | MAGNESIUM | 2.0Comment: Testing | 1.7 - 2.4 mg/dL | [facility] | | | performed at [facility], [address] | | LABORATORY | | | [facility] [address], | | | | | [place] [address] | | | + + + + + + + | Specimen | + + | Blood | + + + + + + + | Performing | Address | City/State/Zipcode | Phone Number | | Organization | | | | + + + + + | [facility] | [address] | [place] [address] | [phone] | | LABORATORY | [address] | | | + + + + + Basic metabolic panel (01/08/2019 5:26 AM) + + + + + | Component | Value | Ref Range | Performed At | + + + + + | SODIUM | 137 | 135 - 145 mmol/L | [facility] | | | | | LABORATORY | + + + + + | POTASSIUM | 3.4 (L) | 3.5 - 4.9 mmol/L | [facility] | | | | | LABORATORY | + + + + + | CHLORIDE | 102 | 99 - 109 mmol/L | [facility] | | | | | LABORATORY | + + + + + | CO2 | 21 (L) | 23 - 32 mmol/L | [facility] | | | | | LABORATORY | + + + + + | ANION GAP AGAP | 17 | 5 - 20 mmol/L | [facility] | | | | | LABORATORY | + + + + + | GLUCOSE | 114 (H) | 65 - 99 mg/dL | [facility] | | | | | LABORATORY | + + + + + | BUN | 33 (H) | 8 - 25 mg/dL | [facility] | | | | | LABORATORY | + + + + + | CREATININE | 13.3 (H) | 0.50 - 1.00 mg/dL | [facility] | | | | | LABORATORY | + + + + + | BUN/CREAT | 2 | | [facility] | | | | | LABORATORY | + + + + + | CALCIUM | 7.0 (L) | 8.5 - 10.5 mg/dL | [...] the | | | | | MDRD IDIA traceable | | | | | equation.Testing | | | | | performed at [facility], [address] | | | | | [facility], | | | | | [place] [address] | | | + + + + + + + | Specimen | + + | Blood | + + + + + + + | Performing | Address | City/State/Zipcode | Phone Number | | Organization | | | | + + + + + | [facility] | [address] | [place] [address] | [phone] | | LABORATORY | [address] | | | + + + + + CBC W/Auto Diff (Reflex to Manual) (01/08/2019 5:26 AM) + + + + + | Component | Value | Ref Range | Performed At | + + + + + | WBC | 11.96 (H) | 3.80 - 11.00 K/uL | [facility] | | | | | LABORATORY | + + + + + | RBC | 3.13 (L) | 3.70 - 5.10 M/uL | [facility] | | | | | LABORATORY | + + + + + | HGB | 9.4 (L) | 11.3 - 15.5 g/dL | [facility] | | | | | LABORATORY | + + + + + | HCT | 28.3 (L) | 34.0 - 46.0 % | [facility] | | | | | LABORATORY | + + + + + | MCV | 90.6 | 80.0 - 100.0 fl | [facility] | | | | | LABORATORY | + + + + + | MCH | 30.2 | 27.0 - 34.0 pg | [facility] | | | | | LABORATORY | + + + + + | MCHC | 33.3 | 32.0 - 35.5 g/dL | [facility] | | | | | LABORATORY | + + + + + | RDW SD | 49.9 | 37 - 53 fl | [facility] | | | | | LABORATORY | + + + + + | PLT | 197 | 150 - 400 K/uL | [facility] | | | | | LABORATORY | + + + + + | MPV | 9.7 | fl | [facility] | | | | | LABORATORY | + + + + + | DIFF TYPE | AUTOMATED | | [facility] | | | | | LABORATORY | + + + + + | NEUTROPHILS | 80.70 | % | [facility] | | | | | LABORATORY | + + + + + | LYMPHOCYTES | 11.40 | % | [facility] | | | | | LABORATORY | + + + + + | MONOCYTES | 5.54 | % | [facility] | | | | | LABORATORY | + + + + + | EOSINOPHILS | 1.99 | % | [facility] | | | | | LABORATORY | + + + + + | BASOPHILS | 0.37 | % | [facility] | | | | | LABORATORY | + + + + + | NEUTROPHILS ABS | 9.66 (H) | 1.90 - 7.40 K/uL | [facility] | | | | | LABORATORY | + + + + + | LYMPHOCYTES ABS | 1.36 | 1.00 - 3.90 K/uL | [facility] | | | | | LABORATORY | + + + + + | MONOCYTES ABS | 0.66 | 0.00 - 0.80 K/uL | [facility] | | | | | LABORATORY | + + + + + | EOSINOPHILS ABS | 0.24 | 0.00 - 0.50 K/uL | [facility] | | | | | LABORATORY | + + + + + | BASOPHILS ABS | 0.05Comment: Testing | 0.00 - 0.10 K/uL | [facility] | | | performed at [facility], [address] | | LABORATORY | | | [facility], | | | | | [place] [address] | | | + + + + + + + | Specimen | + + | Blood | + + + + + + + | Performing | Address | City/State/Zipcode | Phone Number | | Organization | | | | + + + + + | [facility] | [address] | [place] [address] | [phone] | | LABORATORY | [address]vd[address] | | | + + + + + Basic metabolic panel (01/07/2019 5:38 PM) + + + + + | Component | Value | Ref Range | Performed At | + + + + + | SODIUM | 134 (L) | 135 - 145 mmol/L | [facility] | | | | | LABORATORY | + + + + + | POTASSIUM | 4.0Comment: SPECIMEN | 3.5 - 4.9 mmol/L | [facility] | | | SLIGHTLY HEMOLYZED | | LABORATORY | + + + + + | CHLORIDE | 101 | 99 - 109 mmol/L | [facility] [...] + + + + | GLUCOSE | 97Comment: SPECIMEN | 65 - 99 mg/dL | [facility] | | | SLIGHTLY HEMOLYZED | | LABORATORY | + + + + + | BUN | 38 (H) | 8 - 25 mg/dL | [facility] | | | | | LABORATORY | + + + + + | CREATININE | 14.4 (H)Comment: | 0.50 - 1.00 mg/dL | [facility] | | | SPECIMEN SLIGHTLY | | LABORATORY | | | HEMOLYZED | | | + + + + + | BUN/CREAT | 3 | | [facility] | | | | | LAB[facility]ORY | + + + + + | CALCIUM | 6.8 (L) | 8.5 - 10.5 mg/dL | [facility] | | | | | LABORATORY | + + + + + | EGFR | 3 (L)Comment: GFR <60: | >60 mL/min/1.73m2 | [facility] | | | CHRONIC KIDNEY DISEASE, | [...] | | | | | performed at [facility], [address] | | | | | [facility], | | | | | [place] [address] | | | + + + + + + + | Specimen | + + | Blood | + + + + + + + | Performing | Address | City/State/Zipcode | Phone Number | | Organization | | | | + + + + + | [facility] | [address] | [place] [address] | [phone] | | LABORATORY | Any. | | | + + + + + Magnesium (01/07/2019 5:18 AM) + + + + + | Component | Value | Ref Range | Performed At | + + + + + | MAGNESIUM | 2.1Comment: Testing | 1.7 - 2.4 mg/dL | [facility] | | | performed at [facility], [address] | | LABORATORY | | | [facility], | | | | | [place] [address] | | | + + + + + + + | Specimen | + + | Blood | + + + + + + + | Performing | Address | City/State/Zipcode | Phone Number | | Organization | | | | + + + + + | [facility] | [address] | [place] [address] | [phone] | | LABORATORY | [address] | | | + + + + + Comprehensive metabolic panel (01/07/2019 5:18 AM) + + + + + | Component | Value | Ref Range | Performed At | + + + + + | SODIUM | 134 (L) | 135 - 145 mmol/L | [facility] | | | | | LABORATORY | + + + + + | POTASSIUM | 2.6 (LL)Comment: RESULT | 3.5 - 4.9 mmol/L | [facility] | | | READ BACK BY: SILVIA R @ | | LABORATORY | | | MARY 6:45 01/07/19 DH | | | | | SILVIA R @ MARY 6:45 01/07/19 DH | | | | | | | | + + + + + | CHLORIDE | 98 (L) | 99 - 109 mmol/L | [facility] | | | | | LABORATORY | + + + + + | CO2 | 23 | 23 - 32 mmol/L | [facility] | | | | | LABORATORY | + + + + + | ANION GAP AGAP | 16 | 5 - 20 mmol/L | [facility] | | | | | LABORATORY | + + + + + | GLUCOSE | 91 | 65 - 99 mg/dL | [facility] | | | | | LABORATORY | + + + + + | BUN | 34 (H) | 8 - 25 mg/dL | [facility] | | | | | LABORATORY | + + + + + | CREATININE | 14.0 (H) | 0.50 - 1.00 mg/dL | [facility] | | | | | LABORATORY | + + + + + | BUN/CREAT | 2 | | [facility] | | | | | LABORATORY | + + + + + | CALCIUM | 6.8 (L) | 8.5 - 10.5 mg/dL | [facility] | | | | | LABORATORY | + + + + + | TOTAL PROTEIN | 5.4 (L) | 6.3 - 8.2 g/dL | [facility] | | | | | LABORATORY | + + + + + | Albumin | 2.1 (L) | 3.6 - 5.0 g/dL | [facility] | | | | | LABORATORY | + + + + + | GLOBULIN | 3.3 | 1.3 - 4.9 g/dL | [facility] [...] + + + | ALK PHOS | 46 | 35 - 115 U/L | [facility] | | | | | LABORATORY | + + + + + | AST | 17 | 10 - 45 U/L | [facility] | | | | | LABORATORY | + + + + + | ALT | 36 | 10 - 65 U/L | [facility] [...] | | | | | performed at [facility], [address] | | | | | [facility], | | | | | [place] [address] | | | + + + + + + + | Specimen | + + | Blood | + + + + + + + | Performing | Address | City/State/Zipcode | Phone Number | | Organization | | | | + + + + + | [facility] | [address] | [place] [address] | [phone] | | LABORATORY | [address]. | | | + + + + + CBC W/Auto Diff (Reflex to Manual) (01/07/2019 5:18 AM) + + + + + | Component | Value | Ref Range | Performed At | + + + + + | WBC | 9.72 | 3.80 - 11.00 K/uL | [facility] | | | | | LABORATORY | + + + + + | RBC | 3.40 (L) | 3.70 - 5.10 M/uL | [facility] | | | | | LABORATORY | + + + + + | HGB | 10.2 (L) | 11.3 - 15.5 g/dL | [facility] | | | | | LABORATORY | + + + + + | HCT | 30.4 (L) | 34.0 - 46.0 % | [facility] | | | | | LABORATORY | + + + + + | MCV | 89.5 | 80.0 - 100.0 fl | [facility] | | | | | LABORATORY | + + + + + | MCH | 30.2 | 27.0 - 34.0 pg | [facility] | | | | | LABORATORY | + + + + + | MCHC | 33.7 | 32.0 - 35.5 g/dL | [facility] | | | | | LABORATORY | + + + + + | RDW SD | 48.6 | 37 - 53 fl | [facility] | | | | | LABORATORY | + + + + + | PLT | 225 | 150 - 400 K/uL | [facility] | | | | | LABORATORY | + + + + + | MPV | 9.0 | fl | [facility] | | | | | LABORATORY | + + + + + | DIFF TYPE | MANUAL | | [facility] | | | | | LABORATORY | + + + + + | Neutrophils Manual | 72 | % | [facility] | | | | | LABORATORY | + + + + + | MYELOCYTES | 1 | % | [facility] | | | | | LABORATORY | + + + + + | Lymphocytes Manual | 18 | % | [facility] | | | | | LABORATORY | + + + + + | Monocytes Manual | 6 | % | [facility] | | | | | LABORATORY | + + + + + | Eosinophils Manual | 3 | % | [facility] | | | | | LABORATORY | + + + + + | Neutrophils Absolute | 7.00 | 1.90 - 7.40 K/uL | [facility] | | | | | LABORATORY | + + + + + | Myelocytes Absolute | 0.10 (H) | 0.00 K/uL | [facility] | | | | | LABORATORY | + + + + + | Lymphocytes Absolute | 1.75 | 1.00 - 3.90 K/uL | [facility] | | | | | LABORATORY | + + + + + | Monocytes Absolute | 0.58 | 0.00 - 0.80 K/uL | [facility] | | | | | LABORATORY | + + + + + | Eosinophils Absolute | 0.29 | 0.00 - 0.50 K/uL | [facility] | | | | | LABORATORY | + + + + + | Platelet Estimate | ADEQUATE | | [facility] | | | | | LABORATORY | + + + + + | MORPHOLOGY | RBC AND PLT MORPHOLOGY | | [facility] | | | APPEAR NORMALComment: | | LABORATORY | | | Testing performed at | | | | | [facility], [address] | | | | | [place] | | | | | [address] | | | + + + + + + + | Specimen | + + | Blood | + + + + + + + | Performing | Address | City/State/Zipcode | Phone Number | | Organization | | | | + + + + + | [facility] | [address] | [place] [address] | [phone] | | LABORATORY | [address] | | | + + + + + PROCALCITONIN (01/06/2019 5:29 AM) + + + + + | Component | Value | Ref Range | Performed At | + + + + + | PROCALCITONIN | 0.82 (H)Comment: | <0.5 ng/mL | [facility] | | | INTERPRETIVE | | | | | INFORMATION: PROCALCI | | | | | TONIN PCT <= 0.5 | | | | | ng/mL: Low risk | | | | | for progression to | | | | | severe | | | | | systemic bacteria | | | | | l infection (severe | | | | | sepsis/septic | | | | | shock). Does not | | | | | exclude an infection, | | | | | because | | | | | localized infecti | | | | | ons may be associated | | | | | with such low | | | | | levels. If PCT is | | | | | measured very early | | | | | after | | | | | bacterial challen | | | | | ge (usually <6 hours), | | | | | results may still | | | | | be low and should | | | | | re-assess PCT 6-24 | | | | | hours later. PCT >0.5 | | | | | and <= 2 | | | | | ng/mL: Moderate | | | | | risk for progression to | | | | | severe | | | | | systemic infectio | | | | | n (severe sepsis/septic | | | | | shock). Other | | | | | conditions are known to | | | | | elevate PCT, patient | | | | | should be | | | | | closely monitored both | | | | | clinically and | | | | | by re-assessing | | | | | PCT within 6-24 hours. | | | | | PCT > 2 | | | | | ng/mL: High | | | | | likelihood for | | | | | progression to severe | | | | | systemic bacteria | | | | | l infection (severe | | | | | sepsis/septic shock). | | | | | PCT >= 10 | | | | | ng/mL: High | | | | | likelihood of severe | | | | | sepsis or septic | | | | | shock.Testing performed | | | | | at [facility];[address] [place] [address] | | | | | [facility];[place] [address] | | | + + + + + + + + + + | Performing | Address | City/State/Zipcode | Phone Number | | Organization | | | | + + + + + | [facility] | [address] | [place] [address] | | + + + + + C-reactive protein (01/06/2019 5:29 AM) + + + + + | Component | Value | Ref Range | Performed At | + + + + + | CRP | 0.3Comment: Testing | <0.5 mg/dL | [facility] | | | performed at [facility], [address] | | LABORATORY | | | [place], | | | | | [place] [address] | | | + + + + + + + | Specimen | + + | Blood | + + + + + + + | Performing | Address | City/State/Zipcode | Phone Number | | Organization | | | | + + + + + | [facility] | [address] [place] [address] | [place] [address] | [phone] | | LABORATORY | [address] | | | + + + + + Phosphorus (01/06/2019 5:29 AM) + + + + + | Component | Value | Ref Range | Performed At | + + + + + | PHOSPHORUS | 8.8 (H)Comment: Testing | 2.3 - 4.8 mg/dL | [facility] | | | performed at [facility], [address] | | LABORATORY | | | [facility], | | | | | [place] [address] | | | + + + + + + + | Specimen | + + | Blood | + + + + + + + | Performing | Address | City/State/Zipcode | Phone Number | | Organization | | | | + + + + + | [facility] | [address] | [place] [address] | [phone] | | LABORATORY | [address] | | | + + + + + Comprehensive metabolic panel (01/06/2019 5:29 AM) + + + + + | Component | Value | Ref Range | Performed At | + + + + + | SODIUM | 134 (L) | 135 - 145 mmol/L | [facility] | | | | | LABORATORY | + + + + + | POTASSIUM | 2.7 (LL)Comment: RESULT | 3.5 - 4.9 mmol/L | [facility] | | | READ BACK BY: BRANDEE Ny | | LABORATORY | | | @ MARY 7:06 01/06/19 DH | | | | | BRANDEE Ny @ MARY 7:06 01/06/19 DH | | | | | | | | + + + + + | CHLORIDE | 97 (L) | 99 - 109 mmol/L | [facility] | | | | | LABORATORY | + + + + + | CO2 | 23 | 23 - 32 mmol/L | [facility] | | | | | LABORATORY | + + + + + | ANION GAP AGAP | 17 | 5 - 20 mmol/L | [facility] | | | | | LABORATORY | + + + + + | GLUCOSE | 117 (H) | 65 - 99 mg/dL | [facility] | | | | | LABORATORY | + + + + + | BUN | 39 (H) | 8 - 25 mg/dL | [facility] | | | | | LABORATORY | + + + + + | CREATININE | 15.2 (H) | 0.50 - 1.00 mg/dL | [facility] | | | | | LABORATORY | + + + + + | BUN/CREAT | 3 | | [facility] | | | | | LABORATORY | + + + + + | CALCIUM | 7.8 (L) | 8.5 - 10.5 mg/dL | [facility] | | | | | LABORATORY | + + + + + | TOTAL PROTEIN | 6.0 (L) | 6.3 - 8.2 g/dL | [facility] | | | | | LABORATORY | + + + + + | Albumin | 2.4 (L) | 3.6 - 5.0 g/dL | [facility] | | | | | LABORATORY | + + + + + | GLOBULIN | 3.6 | 1.3 - 4.9 g/dL | [facility] | | | | | LABORATORY | + + + + + | A/G | 0.7 (L) | 1.0 - 2.4 | [facility] | | | | | LABORATORY | + + + + + | TBIL | 0.4 | 0.1 - 1.5 mg/dL | [facility] | | | | | LABORATORY | + + + + + | ALK PHOS | 56 | 35 - 115 U/L | [facility] | | | | | LABORATORY | + + + + + | AST | 26 | 10 - 45 U/L | [facility] | | | | | LABORATORY | + + + + + | ALT | 50 | 10 - 65 U/L | [facility] [...] the | | | | | MDRD IDIA traceable | | | | | equation.Testing | | | | | performed at [facility], [address] | | | | | [facility], | | | | | [place] [address] | | | + + + + + + + | Specimen | + + | Blood | + + + + + + + | Performing | Address | City/State/Zipcode | Phone Number | | Organization | | | | + + + + + | [facility] | [address] [place] [address] | [place] [address] | [phone] | | LABORATORY | [address] | | | + + + + + Magnesium (01/06/2019 5:29 AM) + + + + + | Component | Value | Ref Range | Performed At | + + + + + | MAGNESIUM | 2.3Comment: Testing | 1.7 - 2.4 mg/dL | [facility] | | | performed at [facility], [address] | | LABORATORY | | | [facility], | | | | | [place] [address] | | | + + + + + + + | Specimen | + + | Blood | + + + + + + + | Performing | Address | City/State/Zipcode | Phone Number | | Organization | | | | + + + + + | [facility] | [address] | [place] [address] | [phone] | | LABORATORY | [address]. | | | + + + + + CBC W/Auto Diff (Reflex to Manual) (01/06/2019 5:29 AM) + + + + + | Component | Value | Ref Range | Performed At | + + + + + | WBC | 11.15 (H) | 3.80 - 11.00 K/uL | [facility] | | | | | LABORATORY | + + + + + | RBC | 3.77 | 3.70 - 5.10 M/uL | [facility] | | | | | LABORATORY | + + + + + | HGB | 11.0 (L) | 11.3 - 15.5 g/dL | [facility] | | | | | LABORATORY | + + + + + | HCT | 33.7 (L) | 34.0 - 46.0 % | [facility] | | | | | LABORATORY | + + + + + | MCV | 89.5 | 80.0 - 100.0 fl | [facility] | | | | | LABORATORY | + + + + + | MCH | 29.2 | 27.0 - 34.0 pg | [facility] | | | | | LABORATORY | + + + + + | MCHC | 32.6 | 32.0 - 35.5 g/dL | [facility] | | | | | LABORATORY | + + + + + | RDW SD | 49.0 | 37 - 53 fl | [facility] | | | | | LABORATORY | + + + + + | PLT | 267 | 150 - 400 K/uL | [facility] | | | | | LABORATORY | + + + + + | MPV | 9.1 | fl | [facility] | | | | | LABORATORY | + + + + + | DIFF TYPE | AUTOMATED | | [facility] | | | | | LABORATORY | + + + + + | NEUTROPHILS | 75.00 | % | [facility] | | | | | LABORATORY | + + + + + | LYMPHOCYTES | 16.11 | % | [facility] | | | | | LABORATORY | + + + + + | MONOCYTES | 6.73 | % | [facility] | | | | | LABORATORY | + + + + + | EOSINOPHILS | 1.65 | % | [facility] | | | | | LABORATORY | + + + + + | BASOPHILS | 0.51 | % | [facility] | | | | | LABORATORY | + + + + + | NEUTROPHILS ABS | 8.36 (H) | 1.90 - 7.40 K/uL | [facility] | | | | | LABORATORY | + + + + + | LYMPHOCYTES ABS | 1.80 | 1.00 - 3.90 K/uL | [facility] | | | | | LABORATORY | + + + + + | MONOCYTES ABS | 0.75 | 0.00 - 0.80 K/uL | [facility] | | | | | LABORATORY | + + + + + | EOSINOPHILS ABS | 0.18 | 0.00 - 0.50 K/uL | [facility] | | | | | LABORATORY | + + + + + | BASOPHILS ABS | 0.06Comment: Testing | 0.00 - 0.10 K/uL | [facility] | | | performed at [facility], [address] | | LABORATORY | | | [place], | | | | | [place] [address] | | | + + + + + + + | Specimen | + + | Blood | + + + + + + + | Performing | Address | City/State/Zipcode | Phone Number | | Organization | | | | + + + + + | [facility] | [address] | [place] [address] | [phone] | | LABORATORY | [address] | | | + + + + + Troponin I (01/05/2019 11:47 AM) + + + + + | Component | Value | Ref Range | Performed At | + + + + + | TROPONIN I | 0.074 (H)Comment: 0.04 | 0.00 - 0.04 ng/mL | [facility] | | | ng/mL or | [...] performed | | | | | at [facility];[address] | | | | | [place] [address] | | | + + + + + + + | Specimen | + + | Blood | + + + + + + + | Performing | Address | City/State/Zipcode | Phone Number | | Organization | | | | + + + + + | [facility] | [address] | [place] [address] | | + + + + + Lipid panel (01/05/2019 5:42 AM) + + + + + | Component | Value | Ref Range | Performed At | + + + + + | CHOLESTEROL | 116 | <200 mg/dL | [facility] | | | | | LABORATORY | + + + + + | Triglycerides | 158 (H) | <150 mg/dL | [facility] | | | | | LABORATORY | + + + + + | HDL CHOL | 45 | >40 mg/dL | [facility] | | | | | LABORATORY | + + + + + | LDL CALC | 39Comment: Testing | <100 mg/dL | [facility] | | | performed at [facility], [address] | | LABORATORY | | | [address], | | | | | [place] [address] | | | + + + + + + + | Specimen | + + | Blood | + + + + + + + | Performing | Address | City/State/Zipcode | Phone Number | | Organization | | | | + + + + + | [facility] | [address] | [place] [address] | [phone] | | LABORATORY | [address] | | | + + + + + Troponin I (01/05/2019 5:42 AM) + + + + + | Component | Value | Ref Range | Performed At | + + + + + | TROPONIN I | 0.073 (H)Comment: 0.04 | 0.00 - 0.04 ng/mL | [facility] | | | ng/mL or | [...] performed | | | | | at [facility];[address] | | | | | [address];[place] [address] | | | + + + + + + + | Specimen | + + | Blood | + + + + + + + | Performing | Address | City/State/Zipcode | Phone Number | | Organization | | | | + + + + + | [facility] | [address] | [place] [address] | | + + + + + Abiel-TORIBIO (01/05/2019 5:42 AM) + + + + + | Component | Value | Ref Range | Performed At | + + + + + | INR | 1.1Comment: REFERENCE | | [facility] | | | RANGE:0.9 - | | | | | 1.2 NON-ANTICOAGULATE | | | | | D2.0 - 3.0 ALL OTHER | | | | | THERAPEUTIC | | | | | INDICATIONS2.5 - 3.5 | | | | | MECHANICAL HEART VALVES, | | | | | RECURRENT OR SYSTEMIC | | | | | EMBOLISMTesting | | | | | performed at [facility];[address] | | | [address] [facility];[place], [place] | | | | | [address] | | | + + + + + + + | Specimen | + + | Blood | + + + + + + + | Performing | Address | City/State/Zipcode | Phone Number | | Organization | | | | + + + + + | [facility] | [address] | [place] [address] | | + + + + + Phosphorus (01/05/2019 5:42 AM) + + + + + | Component | Value | Ref Range | Performed At | + + + + + | PHOSPHORUS | 11.2 ()Comment: RESULT | 2.3 - 4.8 mg/dL | [facility] | | | READ BACK BY: JUVENAL Quarles | | LABORATORY | | | @ MARY 7:41 01/05/19 | | | | | DHTesting performed at | | | | | [facility], [address] | | | | | [place], | | | | | [place] [address] | | | + + + + + + + | Specimen | + + | Blood | + + + + + + + | Performing | Address | City/State/Zipcode | Phone Number | | Organization | | | | + + + + + | [facility] | [address] [place] [address] | [place] [address] | [phone] | | LABORATORY | [address] | | | + + + + + Magnesium (01/05/2019 5:42 AM) + + + + + | Component | Value | Ref Range | Performed At | + + + + + | MAGNESIUM | 2.4Comment: Testing | 1.7 - 2.4 mg/dL | [facility] | | | performed at [facility], [address] | | LABORATORY | | | [facility], | | | | | [place] [address] | | | + + + + + + + | Specimen | + + | Blood | + + + + + + + | Performing | Address | City/State/Zipcode | Phone Number | | Organization | | | | + + + + + | [facility] | [address] | [place] [address] | [phone] | | LABORATORY | [address] | | | + + + + + Basic Metabolic Panel (01/05/2019 5:42 AM) + + + + + | [...] 23 | 23 - 32 mmol/L | [facility] | | | | | LABORATORY | + + + + + | ANION GAP AGAP | 22 (H) | 5 - 20 mmol/L | [facility] | | | | | LABORATORY | + + + + + | GLUCOSE | 95 | 65 - 99 mg/dL | [facility] | | | | | LABORATORY | + + + + + | BUN | 41 (H) | 8 - 25 mg/dL | [facility] | | | | | LABORATORY | + + + + + | CREATININE | 16.7 (H) | 0.50 - 1.00 mg/dL | [facility] | | | | | LABORATORY | + + + + + | BUN/CREAT | 2 | | [facility] | | | | | LABORATORY | + + + + + | CALCIUM | 8.4 (L) | 8.5 - 10.5 mg/dL | [facility] | | | | | LABORATORY | + + + + + | EGFR | 2 (L)Comment: GFR <60: | >60 mL/min/1.73m2 | [...] | | | | | performed at [facility], [address] | | | | | [facility], | | | | | [place] [address] | | | + + + + + + + | Specimen | + + | Blood | + + + + + + + | Performing | Address | City/State/Zipcode | Phone Number | | Organization | | | | + + + + + | [facility] | [address] | [place] [address] | [phone] | | LABORATORY | Blvd. | | | + + + + + CBC W/Auto Diff (Reflex to Manual) (01/05/2019 5:42 AM) + + + + + | Component | Value | Ref Range | Performed At | + + + + + | WBC | 14.70 (H) | 3.80 - 11.00 K/uL | [facility] | | | | | LABORATORY | + + + + + | RBC | 4.18 | 3.70 - 5.10 M/uL | [facility] | | | | | LABORATORY | + + + + + | HGB | 12.3 | 11.3 - 15.5 g/dL | [facility] | | | | | LABORATORY | + + + + + | HCT | 37.3 | 34.0 - 46.0 % | [facility] | | | | | LABORATORY | + + + + + | MCV | 89.2 | 80.0 - 100.0 fl | [facility] | | | | | LABORATORY | + + + + + | MCH | 29.3 | 27.0 - 34.0 pg | [facility] | | | | | LABORATORY | + + + + + | MCHC | 32.9 | 32.0 - 35.5 g/dL | [facility] | | | | | LABORATORY | + + + + + | RDW SD | 49.4 | 37 - 53 fl | [facility] | | | | | LABORATORY | + + + + + | PLT | 311 | 150 - 400 K/uL | [facility] | | | | | LABORATORY | + + + + + | MPV | 8.6 | fl | [facility] | | | | | LABORATORY | + + + + + | DIFF TYPE | AUTOMATED | | [facility] | | | | | LABORATORY | + + + + + | NEUTROPHILS | 78.88 | % | [facility] | | | | | LABORATORY | + + + + + | LYMPHOCYTES | 12.34 | % | [facility] | | | | | LABORATORY | + + + + + | MONOCYTES | 8.10 | % | [facility] | | | | | LABORATORY | + + + + + | EOSINOPHILS | 0.27 | % | [facility] | | | | | LABORATORY | + + + + + | BASOPHILS | 0.41 | % | [facility] | | | | | LABORATORY | + + + + + | NEUTROPHILS ABS | 11.59 (H) | 1.90 - 7.40 K/uL | [facility] | | | | | LABORATORY | + + + + + | LYMPHOCYTES ABS | 1.81 | 1.00 - 3.90 K/uL | [facility] | | | | | LABORATORY | + + + + + | MONOCYTES ABS | 1.19 (H) | 0.00 - 0.80 K/uL | [facility] | | | | | LABORATORY | + + + + + | EOSINOPHILS ABS | 0.04 | 0.00 - 0.50 K/uL | [facility] | | | | | LABORATORY | + + + + + | BASOPHILS ABS | 0.06Comment: Testing | 0.00 - 0.10 K/uL | [facility] | | | performed at [facility], [address] | | LABORATORY | | | [place], | | | | | [place] [address] | | | + + + + + + + | Specimen | + + | Blood | + + + + + + + | Performing | Address | City/State/Zipcode | Phone Number | | Organization | | | | + + + + + | [facility] | [address] | [place] [address] | [phone] | | LABORATORY | Blvd. | | | + + + + + EKG 12 LEAD UNIT PERFORMED (01/05/2019 12:55 AM) + + + + + | Component | Value | Ref Range | Performed At | + + + + + | Ventricular Rate | 69 | BPM | [facility] | + + + + + | Atrial Rate | 69 | BPM | [facility] | + + + + + | P-R Interval | 128 | ms | [facility] | + + + + + | QRS Duration | 82 | ms | [facility] | + + + + + | Q-T Interval | 432 | ms | [facility] | + + + + + | QTC Calculation | 462 | ms | [facility] | | (Bezet) | | | | + + + + + | Calculated P [place] | 27 | degrees | [facility] | + + + + + | Calculated R [place] | 79 | degrees | [facility] | + + + + + | Calculated T [place] | -142 | degrees | [facility] | + + + + + | Diagnosis | Normal sinus rhythm with | | [facility] | | | sinus arrhythmiaST & T | | | | | wave abnormality, | | | | | consider inferior | | | | | ischemiaST & T wave | | | | | abnormality, consider | | | | | anterolateral | | | | | ischemiaProlonged | | | | | QTAbnormal ECGWhen | | | | | compared with ECG of | | | | | 16-DEC-2018 | | | | | 07:46,Minimal criteria | | | | | for Inferior infarct are | | | | | no longer PresentT wave | | | | | inversion now evident | | | | | in Inferior | | | | | leadsConfirmed by MUSE | | | | | READ ONLY, -COMPUTER | | | | | ([id number]), deputy editor in chief Collin, | | | | | Rashel Mercado ([id number]) on | | | | | 01/05/2019 3:50:25 AM | | | + + + + + + + + + + | Performing | Address | City/State/Zipcode | Phone Number | | Organization | | | | + + + + + | [facility] | [address] | [place] [address] | | + + + + + Troponin I (01/05/2019 12:51 AM) + + + + + | Component | Value | Ref Range | Performed At | + + + + + | TROPONIN I | 0.076 (H)Comment: 0.04 | 0.00 - 0.04 ng/mL | [facility] | | | ng/mL or | [...] performed | | | | | at [facility];[address] [place] [address] | | | | | [facility];[place] [address] | | | + + + + + + + + + + | Performing | Address | City/State/Zipcode | Phone Number | | Organization | | | | + + + + + | [facility] | [address] | [place] [address] | | + + + + + Phosphorus (01/05/2019 12:51 AM) + + + + + | Component | Value | Ref Range | Performed At | + + + + + | PHOSPHORUS | 11.7 (HH)Comment: CALLED | 2.3 - 4.8 mg/dL | [facility] | | | TO LEONILA Hernández RN/BARI AT | | | | | [phone] BY MWREAD BACK | | | | | RESULTS VERIFIEDTesting | | | | | performed at [facility] | | | | | [facility] | | | | | [address] | | | + + + + + + + | Specimen | + + | Blood | + + + + + + + | Performing | Address | City/State/Zipcode | Phone Number | | Organization | | | | + + + + + | [facility] | [address] | [place] [address] | | + + + + + Magnesium (01/05/2019 12:51 AM) + + + + + | Component | Value | Ref Range | Performed At | + + + + + | MAGNESIUM | 2.1Comment: Testing | 1.7 - 2.4 mg/dL | [facility] | | | performed at [facility] | | | | | [facility];[place], [place] | | | | | [address] | | | + + + + + + + | Specimen | + + | Blood | + + + + + + + | Performing | Address | City/State/Zipcode | Phone Number | | Organization | | | | + + + + + | [facility] | [address] | [place] [address] | | + + + + + Comprehensive metabolic panel (01/05/2019 12:51 AM) + + + + + | Component | Value | Ref Range | Performed At | + + + + + | SODIUM | 143 | 135 - 145 mmol/L | [facility] | + + + + + | POTASSIUM | 2.8 (L) | 3.5 - 4.9 mmol/L | [facility] | + + + + + | CHLORIDE | 99 | 99 - 109 mmol/L | [facility] | + + + + + | CO2 | 23 | 23 - 32 mmol/L | [facility] | + + + + + | ANION GAP AGAP | 24 (H) | 5 - 20 mmol/L | [facility] | + + + + + | GLUCOSE | 93 | 65 - 99 mg/dL | [facility] | + + + + + | BUN | 37 (H) | 8 - 25 mg/dL | [facility] | + + + + + | CREATININE | 15.32 (H) | 0.50 - 1.00 mg/dL | [facility] | + + + + + | BUN/CREAT | 2 | | [facility] | + + + + + | CALCIUM | 8.3 (L) | 8.5 - 10.5 mg/dL | [facility] | + + + + + | TOTAL PROTEIN | 6.8 | 6.3 - 8.2 g/dL | [facility] | + + + + + | Albumin | 4.1 | 3.6 - 5.0 g/dL | [facility] | + + + + + | GLOBULIN | 2.7 | 1.3 - 4.9 g/dL | [facility] | + + + + + | A/G | 1.5 | 1.0 - 2.4 | [facility] | + + + + + | TBIL | 0.4 | 0.1 - 1.5 mg/dL | [facility] | + + + + + | ALK PHOS | 74 | 35 - 115 U/L | [facility] | + + + + + | AST | 55 (H) | 10 - 45 U/L | [facility] | + + + + + | ALT | 53 | 10 - 65 U/L | [facility] | + + + + + | EGFR | 3 (L)Comment: GFR <60: | >60 mL/min/1.73m2 | [facility] | | | CHRONIC KIDNEY DISEASE, [...] | | | | | performed at [facility];[address] | | | | | [facility];[place], [place] | | | | | [address] | | | + + + + + + + | Specimen | + + | Blood | + + + + + + + | Performing | Address | City/State/Zipcode | Phone Number | | Organization | | | | + + + + + | [facility] | [address] | [facility] [place] [address] | | + + + + + CBC with differential (01/05/2019 12:51 AM) + + + + + | Component | Value | Ref Range | Performed At | + + + + + | WBC | 15.65 (H) | 3.80 - 11.00 K/uL | [facility] | + + + + + | RBC | 4.24 | 3.70 - 5.10 M/uL | [facility] | + + + + + | HGB | 12.7 | 11.3 - 15.5 g/dL | [facility] | + + + + + | HCT | 37.4 | 34.0 - 46.0 % | [facility] | + + + + + | MCV | 88.2 | 80.0 - 100.0 fl | [facility] | + + + + + | MCH | 30.0 | 27.0 - 34.0 pg | [facility] | + + + + + | MCHC | 34.0 | 32.0 - 35.5 g/dL | [facility] | + + + + + | RDW SD | 49.4 | 37 - 53 fl | [facility] | + + + + + | PLT | 337 | 150 - 400 K/uL | [facility] | + + + + + | MPV | 8.7 | fl | [facility] | + + + + + | DIFF TYPE | AUTOMATED | | [facility] | + + + + + | NEUTROPHILS | 81.32 | % | [facility] | + + + + + | LYMPHOCYTES | 10.35 | % | [facility] | + + + + + | MONOCYTES | 7.85 | % | [facility] | + + + + + | EOSINOPHILS | 0.13 | % | [facility] | + + + + + | BASOPHILS | 0.35 | % | [facility] | + + + + + | NEUTROPHILS ABS | 12.72 (H) | 1.90 - 7.40 K/uL | [facility] | + + + + + | LYMPHOCYTES ABS | 1.62 | 1.00 - 3.90 K/uL | [facility] | + + + + + | MONOCYTES ABS | 1.23 (H) | 0.00 - 0.80 K/uL | [facility] | + + + + + | EOSINOPHILS ABS | 0.02 | 0.00 - 0.50 K/uL | [facility] | + + + + + | BASOPHILS ABS | 0.06Comment: Testing | 0.00 - 0.10 K/uL | [facility] | | | performed at [facility];[address] | | | | | [address];[place] | | | | | [address] | | | + + + + + + + | Specimen | + + | Blood | + + + + + + + | Performing | Address | City/State/Zipcode | Phone Number | | Organization | | | | + + + + + | [facility] | [address] [facility] | [place] [address] | | + + + + + ED INFORMATION EXCHANGE (01/04/2019 10:36 PM) + + + | Narrative | Performed At | + + + | [id number] Criteria Met Care | ED | | Guidelines 10 in 12 2 in 2 Security and Safety No | INFORMATION | | recent Security Events currently on file ED Care Guidelines There | EXCHANGE | | are currently no ED Care Guidelines for this patient. Please check | | | your facility's medical records system. Care History | | | Medical/Surgical 06/10/18 12:00 AM [facility] | | | Patient has not followed up with PCP in regards to ED visits. Last | | | time patient was seen by PCP was 06/10/17. Patient has done | | | multiple no shows to [facility]. Patient has been | | | seen by [facility] infectious disease for follow up by Dr Cathie Ochoa. | | | Care Recommendation: This patient has had 5 or more Emergency | | | Department visits in the last 12 months.Patient requires education on | | | the scope and purpose of the ED as an acute care provider not a | | | Primary Care Provider and should not be utilized for chronic | | | conditions. These are guidelines and the provider should exercise | | | clinical judgment when providing care. Prescription Drug Report | | | (12 Mo.) PDMP report does not meet criteria. E.D. Visit Count | | | (12 mo.) Facility Visits Low Acuity [facility] | | | 5 0 [facility] 5 0 Total 10 0 Note: Visits | | | indicate total known visits. Medicaid Low Acuity Dx are the number of | | | primary diagnoses on the Medicaid's Low Acuity dx list. Recent | | | Emergency Department Visit Summary Date Facility City State Type | | | Diagnoses or Chief Complaint Jan 04, 2019 [facility] | | | [place] Emergency Jan 04, 2019 [facility] [place] | | | Emergency Chief Complaint: DEHYDRATION/CONSTIPATION Dec 31, | | | 2018 [facility] 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 Emergency | | | Peritonitis, unspecified Panic disorder [episodic | | | paroxysmal anxiety] Chronic kidney disease, unspecified | | | Dependence on renal dialysis [facility] | | [facility] [place] Emergency Flank Pain Unspecified abdominal | | | pain Dependence on renal dialysis Patient's | | | noncompliance with other medical treatment and regimen End | | | stage renal disease Noninflammatory disorder of ovary, | | | fallopian tube and broad ligament, unspecified March 16, 2018 [facility] | | | [facility] [place] Emergency abdominal pain | | | Chronic kidney disease, unspecified Hypotension, unspecified | | | Unspecified abdominal pain March 11, [address] [facility] | | | [place] Emergency Unspecified abdominal pain | | | Peritonitis, unspecified Infection and inflammatory reaction | | | due to other cardiac and vascular devices, implants and grafts, | | | initial encounter Dependence on renal dialysis Other | | | terminal block assembler (current) drug therapy Essential (primary) | | | hypertension Mar 04, 2018 [facility] [place] | | | Emergency Emesis Abdominal Pain Recent | | | Inpatient Visit Summary Date Facility City State Type Diagnoses or | | | Chief Complaint Dec 24, 2018 [facility] | | | Medicine Unspecified abdominal pain End stage renal | | | disease Dependence on renal dialysis Dec 07, 2018 [facility] | | | [facility] General Medicine Bandemia | | | Spontaneous bacterial peritonitis End stage renal disease | | | Dependence on renal dialysis Peritonitis, unspecified | | | Infection and inflammatory reaction due to peritoneal dialysis | | | catheter, subsequent encounter Anemia in chronic kidney disease | | | Jun 07, 2018 [facility] General Medicine | | | Bacterial peritonitis End stage renal disease | | | Dependence on renal dialysis March 16, 2018 [facility] | | | [facility] General Medicine Chronic kidney disease, | | | unspecified Hypotension, unspecified Unspecified | | | abdominal pain Dependence on renal dialysis End stage | | | renal disease Noninflammatory disorder of ovary, fallopian tube | | | and broad ligament, unspecified Mar 04, 2018 [facility] | | | [place] Recovery Emesis Abdominal Pain | | | Generalized abdominal pain Dependence on renal dialysis | | | End stage renal disease Nausea with vomiting, unspecified | | | Care Providers Provider PRC Type Phone Fax Service Dates | | | JUAN F WHITLEY MD Family Medicine Jun 08, 2018 - Current | | | [employer] This patient has registered at the [facility] | | | [facility] Emergency Department For more information visit: | | | [email or web address] | | | [email or web address] The above information is provided for the sole purpose of | | | patient treatment. Use of this information beyond the terms of Data | | | Sharing Memorandum of Understanding and License Agreement is | | | prohibited. In certain cases not all visits may be represented. | | | Consult the aforementioned facilities for additional information. | | | 2019 [employer] - [place], [place] - | | | [email or web address] | | + + + + + | Procedure Note | + + | Interface, Lab - 01/04/2019 10:38 PM PST Formatting of this note may be different | | from the original.[id number] Met Care Guidelines 10 in 12 | | 2 in 2Security and SafetyNo recent Security Events currently on fileED Care | | GuidelinesThere are currently no ED Care Guidelines for this patient. Please check your | | facility's medical records system.Care HistoryMedical/Surgical06/10/18 12:00 AM [facility]. | | [facility] Patient has not followed up with PCP in regards to ED visits. Last | | time patient was seen by PCP was 06/10/17. Patient has done multiple no shows to | | [facility]. Patient has been seen by [facility] infectious disease for follow | | up by Dr Cathie Ochoa.Care Recommendation:This patient has had 5 or more Emergency | | Department visits in the last 12 months.Patient requires education on the scope and | | purpose of the ED as an acute care provider not a Primary Care Provider and should not | | be utilized for chronic conditions.These are guidelines and the provider should exercise | | clinical judgment when providing care.Prescription Drug Report (12 Mo.)PDMP report does | | not meet criteria.E.D. Visit Count (12 mo.)Facility Visits Low Acuity [facility] | [facility] 5 0 [facility] 5 0 Total 10 0 Note: Visits indicate total | | known visits. Medicaid Low Acuity Dx are the number of primary diagnoses on the | | Medicaid's Low Acuity dx list. Recent Emergency Department Visit SummaryDate Facility | | City State Type Diagnoses or Chief Complaint Jan 04[facility] 2019 [facility] [place] [facility] Chief Complaint: | | DEHYDRATION/CONSTIPATION [facility] [place] [facility] Other | | senior living (current) drug therapy Anxiety disorder, unspecified Dependence on renal | | dialysis Essential (primary) hypertension Dec 24, [facility] [place] | | Emergency Hypertensive heart and chronic kidney disease without heart failure, with | | stage 5 chronic kidney disease, or end stage renal disease End stage renal disease | | Nausea with vomiting, unspecified Other senior living (current) drug therapy Left | | upper quadrant pain Dependence on renal dialysis Dec 07, 2018 [facility] | | [facility] Emergency Abdominal Pain Chest Pain Spontaneous bacterial peritonitis | | Bandemia Dependence on renal dialysis End stage renal disease Jun 07, 2018 | | [facility] [place] [place] Emergency Peritonitis, unspecified Panic disorder | | [episodic paroxysmal anxiety] Chronic kidney disease, unspecified Dependence on | | renal dialysis Jun 04, 2018 [facility] [place] Emergency Flank Pain | | Unspecified abdominal pain Dependence on renal dialysis Patient's noncompliance | | with other medical treatment and regimen End stage renal disease Noninflammatory | | disorder of ovary, fallopian tube and broad ligament, unspecified March 16, 2018 [facility] | | [place] Emergency abdominal pain Chronic kidney disease, | | unspecified Hypotension, unspecified Unspecified abdominal pain March 11, 2018 [facility] | | [place] Emergency Unspecified abdominal pain Peritonitis, | | unspecified Infection and inflammatory reaction due to other cardiac and vascular | | devices, implants and grafts, initial encounter Dependence on renal dialysis Other | | terminal block assembler (current) drug therapy Essential (primary) hypertension Mar 04, 2018 | | [facility] [place] Emergency Emesis Abdominal Pain Recent Inpatient | | Visit SummaryDate Facility [facility] State Type Diagnoses or Chief Complaint Dec 24, 2018 | | [facility] [place] General Medicine Unspecified abdominal pain End | | stage renal disease Dependence on renal dialysis Dec 07, 2018 [facility] Moe Gill | | [place] General Medicine Bandemia Spontaneous bacterial peritonitis End stage | | renal disease Dependence on renal dialysis Peritonitis, unspecified Infection | | and inflammatory reaction due to peritoneal dialysis catheter, subsequent encounter | | Anemia in chronic kidney disease Jun 07, 2018 [facility] [place] General | | Medicine Bacterial peritonitis End stage renal disease Dependence on renal | | dialysis March 16, 2018 [facility] [place] General Medicine Chronic kidney | | disease, unspecified Hypotension, unspecified Unspecified abdominal pain | | Dependence on renal dialysis End stage renal disease Noninflammatory disorder of | | ovary, fallopian tube and broad ligament, unspecified Mar 04, 2018 [facility] Moe [place] | | [place] Recovery Emesis Abdominal Pain Generalized abdominal pain | | Dependence on renal dialysis End stage renal disease Nausea with vomiting, | | unspecified Care ProvidersProvider [facility] Type Phone Fax Service Dates JUAN F WHITLEY MD | | Family Medicine Jun 08, 2018 - Current [employer] PortalThis patient has registered | | at the [facility] Emergency Department For more information visit: | | [email or web address] The above | | information is provided for the sole purpose of patient treatment. Use of this | | information beyond the terms of Data Sharing Memorandum of Understanding and License | | Agreement is prohibited. In certain cases not all visits may be represented. Consult the | | aforementioned facilities for additional information. 2019 [employer] | | [employer] - [place], [place] - [email or web address] | |Jun 07, 2018 [facility] [place] Emergency | | Peritonitis, unspecified | | Panic disorder [episodic paroxysmal anxiety] | | Chronic kidney disease, unspecified | | Dependence on renal dialysis | | | |Jun 04, 2018 [facility] | | Flank Pain | | Unspecified abdominal pain | | Dependence on renal dialysis | | Patient's noncompliance with other medical treatment and regimen | | End stage renal disease | | Noninflammatory disorder of ovary, fallopian tube and broad ligament, unspecified | | | |March 16, 2018 [facility] | | abdominal pain | | Chronic kidney disease, unspecified | | Hypotension, unspecified | | Unspecified abdominal pain | | | |March 11, 2018 [facility] [place] Emergency | | Unspecified abdominal pain | | Peritonitis, unspecified | | Infection and inflammatory reaction due to other cardiac and vascular devices, implants and grafts, initial encounter | | Dependence on renal dialysis | | Other terminal block assembler (current) drug therapy | | Essential (primary) hypertension | | | |Mar 04, 2018 [facility] [place] Emergency | | Emesis | | Abdominal Pain | | | | | | | |Recent Inpatient Visit Summary | |Date Facility [facility] State Type Diagnoses or Chief Complaint | |Dec 24, 2018 [facility] [place] [facility] | | Unspecified abdominal pain | | End stage renal disease | | Dependence on renal dialysis | | | |Dec 07, 2018 [facility] General Medicine | | Bandemia | | Spontaneous bacterial peritonitis | | End stage renal disease | | Dependence on renal dialysis | | Peritonitis, unspecified | | Infection and inflammatory reaction due to peritoneal dialysis catheter, subsequent enco unter | | Anemia in chronic kidney disease | | | |Jun 07, 2018 [facility] General Medicine | | Bacterial peritonitis | | End stage renal disease | | Dependence on renal dialysis | | | |March 16, 2018 [facility] General Medicine | | Chronic kidney disease, unspecified | | Hypotension, unspecified | | Unspecified abdominal pain | | Dependence on renal dialysis | | End stage renal disease | | Noninflammatory disorder of ovary, fallopian tube and broad ligament, unspecified | | | |[facility] 04, 2018 [facility] | | Emesis | | Abdominal Pain | | Generalized abdominal pain | | Dependence on renal dialysis | | End stage renal disease | | Nausea with vomiting, unspecified | | | | | | | |Care Providers | |Provider PRC Type Phone Fax Service Dates | |JUAN F WHITLEY MD Family Medicine Jun 08, 2018 - Current | | | |[employer] | |This patient has registered at the [facility] Emergency Department | |For more information visit: [email or web address] | |The above information is provided for the sole purpose of patient treatment. Use of this in formation beyond the terms of Data Sharing Memorandum of Understanding and License Agreement is prohibited. In | |certain cases not all visits may be represented. Consult the aforementioned facilities for additional information. | |2019 [employer] - [place], [place] - [email or web address] | + + + +---------+ + + | Performing | Address | City/State/Zipcode | Phone Number | | Organization | | | | + +---------+ + + | ED INFORMATION | | | | | EXCHANGE | | | | + +---------+ + + in this encounter Visit Diagnoses + + | Diagnosis | + + | Diverticulitis - Primary | + + | Diverticulitis of colon (without mention of hemorrhage) | + + | Hypokalemia | + + | Hypopotassemia | + + | ESRD on peritoneal dialysis (HCC) | + + | End stage renal disease | + + | ESRD on peritoneal dialysis | + + | End stage renal disease | + + | Anemia in ESRD (end-stage renal disease) (HCC) | + + | Anemia in chronic kidney disease | + + | Gastroesophageal reflux disease without esophagitis | + + | Esophageal reflux | + + | Leukocytosis | + + | Leukocytosis, unspecified | + + | Right ovarian cyst | + + | Other and unspecified ovarian cyst | + + | Left lower quadrant pain | + + | Abdominal pain, left lower quadrant | + + | Hyperphosphatemia | + + | Disorders of phosphorus metabolism | + + | Abnormal EKG | + + | Nonspecific abnormal electrocardiogram (ECG) (EKG) | + + | Elevated troponin | + + | Other abnormal blood chemistry | + + | Secondary hyperparathyroidism (HCC) | + + | Secondary hyperparathyroidism (of renal origin) | + + | Abdominal pain | + + | Abdominal pain, unspecified site | + + Admitting Diagnoses + + | Diagnosis | + + | Hypokalemia | + + | Hypopotassemia | + + | Diverticulitis | + + | Diverticulitis of colon (without mention of hemorrhage) | + + | ESRD on peritoneal dialysis (HCC) | + + | End stage renal disease | + + | End-stage renal disease [...] | | | Pain (1-3), Fever, Starting Tue | | | 01/05/19 at 0501 | | + +---+ | | | + +---+ | acetaminophen (TYLENOL) tablet | | | 650 mg 650 mg, Oral, Every 6 | | | Hours PRN, Mild Pain (1-3), | | | Fever, Starting 01/05/19 at | | | 0501 | | + +---+ | | | + +---+ + +-------+ +--------+---+---+ | aspirin EC tablet 325 mg 325 | Given | | 325 mg | | | | mg, Oral, Daily With Breakfast, | | 9 08:57 | | | | | First dose on Fri01/05/19 at 0800 | | PST | | | | + +-------+ +--------+---+---+ +-------+ +--------+---+---+ | Given | 01/08/2019 | 325 mg | | | | | 11:05 | | | | | | PST | | | | +-------+ +--------+---+---+ | Given | 01/09/2019 | 325 mg | | | | | 09:27 | | | | | | PST | | | | +-------+ +--------+---+---+ +---+---+ | | | +---+---+ + +-------+ +-------+---+---+ | atorvastatin (LIPITOR) tablet | Given | | 20 mg | | | | 20 mg 20 mg, Oral, Nightly, | | 9 22:51 | | | | | First dose on Fri01/05/19 at 2200 | | PST | | | | + +-------+ +-------+---+---+ +-------+ +-------+---+---+ | Given | | 20 mg | | | | | 9 22:35 | | | | | | PST | | | | +-------+ +-------+---+---+ | Given | 01/08/2019 | 20 mg | | | | | 21:28 | | | | | | PST | | | | +-------+ +-------+---+---+ +---+---+ | | | +---+---+ + +-------+ + +---+---+ | HYDROcodone-acetaminophen | Given | | 1 tablet | | | | (NORCO) 5-325 MG per tablet 1 | | 9 19:33 | | | | | tablet 1 tablet, Oral, Every 4 | | PST | | | | | Hours PRN, Moderate Pain (4-6), | | | | | | | Severe Pain (7-10), Starting Fri | | | | | | | 01/05/19 at 0501 | | | | | | + +-------+ + +---+---+ +-------+ + +---+---+ | Given | | 1 tablet | | | | | 9 10:52 | | | | | | PST | | | | +-------+ + +---+---+ | Given | 01/08/2019 | 1 tablet | | | | | 21:28 | | | | | | PST | | | | +-------+ + +---+---+ +---+---+ | | | +---+---+ + +-------+ +-------+---+---+ | metoprolol (TOPROL-XL) 24 hr | Given | | 25 mg | | | | tablet 25 mg 25 mg, Oral, Daily, | | 9 08:35 | | | | | First dose on Fri01/05/19 at | | PST | | | | | 0900 | | | | | | + +-------+ +-------+---+---+ +-------+ +-------+---+---+ | Given | 01/09/2019 | 25 mg | | | | | 09:26 | | | | | | PST | | | | +-------+ +-------+---+---+ +---+---+ | | | +---+---+ + +-------+ +------+---+---+ | morphine (PF) injection 4 mg 4 | Given | | 4 mg | | | | mg, Intravenous, Once, Tue | | 9 03:48 | | | | | 01/05/19 at 0345, For 1 dose | | PST | | | | + +-------+ +------+---+---+ +---+---+ | | | +---+---+ + +-------+ +------+---+---+ | morphine (PF) injection 8 mg 8 | Given | | 8 mg | | | | mg, Intravenous, Once, Tue | | 9 01:06 | | | | | 01/05/19 at 0101, For 1 dose | | PST | | | | + +-------+ +------+---+---+ +---+---+ | | | +---+---+ + +-------+ +------+---+---+ | ondansetron (ZOFRAN) injection | Given | | 4 mg | | | | 4 mg 4 mg, Intravenous, Every 6 | | 9 13:16 | | | | | Hours PRN, Nausea, Vomiting, | | PST | | | | | Starting 01/05/19 at 0501 | | | | | | + +-------+ +------+---+---+ +-------+ +------+---+---+ | Given | | 4 mg | | | | | 9 08:57 | | | | | | PST | | | | +-------+ +------+---+---+ | Given | 01/08/2019 | 4 mg | | | | | 11:01 | | | | | | PST | | | | +-------+ +------+---+---+ +---+---+ | | | +---+---+ + +-------+ +------+---+---+ | ondansetron (ZOFRAN) injection | Given | | 8 mg | | | | 8 mg 8 mg, Intravenous, Once, | | 9 01:06 | | | | | 01/05/19 at 0101, For 1 dose | | PST | | | | + +-------+ +------+---+---+ +---+---+ | | | +---+---+ + +-------+ +------+---+---+ | ondansetron (ZOFRAN-ODT) | Given | 01/08/2019 | 4 mg | | | | disintegrating tablet 4 mg 4 mg, | | 22:14 | | | | | Oral, Every 6 Hours PRN, Nausea, | | PST | | | | | Vomiting, Starting 01/05/19 | | | | | | | at 0501 | | | | | | + +-------+ +------+---+---+ +-------+ +------+---+---+ | Given | 01/09/2019 | 4 mg | | | | | 06:13 | | | | | | PST | | | | +-------+ +------+---+---+ | Given | 01/09/2019 | 4 mg | | | | | 11:29 | | | | | | PST | | | | +-------+ +------+---+---+ +---+---+ | | | +---+---+ + +-------+ +-------+---+---+ | pantoprazole (PROTONIX) EC | Given | | 40 mg | | | | tablet 40 mg 40 mg, Oral, Every | | 9 05:32 | | | | | Morning Before Breakfast, First | | PST | | | | | dose on Fri01/05/19 at 0630 | | | | | | + +-------+ +-------+---+---+ +-------+ +-------+---+---+ | Given | 01/08/2019 | 40 mg | | | | | 06:32 | | | | | | PST | | | | +-------+ +-------+---+---+ | Given | 01/09/2019 | 40 mg | | | | | 06:13 | | | | | | PST | | | | +-------+ +-------+---+---+ +---+---+ | | | +---+---+ + +-------+ +--------+-------+---+ | piperacillin-tazobactam (ZOSYN) | Given | 01/08/2019 | 2.25 g | 100 | | | IVPB 2.25 g 2.25 g, | | 06:32 | | mL/hr | | | Intravenous, Administer over 30 | | PST | | | | | Minutes, Every 12 Hours, First | | | | | | | dose on Fri01/05/19 at 0630 | | | | | | + +-------+ +--------+-------+---+ +-------+ +--------+-------+---+ | Given | 01/08/2019 | 2.25 g | 100 | | | | 18:02 | | mL/hr | | | | PST | | | | +-------+ +--------+-------+---+ | Given | 01/09/2019 | 2.25 g | 100 | | | | 06:50 | | mL/hr | | | | PST | | | | +-------+ +--------+-------+---+ +---+---+ | | | +---+---+ + +-------+ +--------+---+---+ | potassium chloride (K-DUR) CR | Given | | 20 mEq | | | | tablet 20 mEq 20 mEq, Oral, | | 9 08:57 | | | | | Daily With Breakfast, First dose | | PST | | | | | on Fri01/06/19 at 1230 | | | | | | + +-------+ +--------+---+---+ +---+---+ | | | +---+---+ + +-------+ +--------+---+---+ | potassium chloride (K-DUR) CR | Given | 01/08/2019 | 20 mEq | | | | tablet 20 mEq 20 mEq, Oral, 2 | | 11:02 | | | | | Times Daily With Meals, First | | PST | | | | | dose on [facility] 01/07/19 at 1700 | | | | | | + +-------+ +--------+---+---+ +-------+ +--------+---+---+ | Given | 01/08/2019 | 20 mEq | | | | | 18:01 | | | | | | PST | | | | +-------+ +--------+---+---+ | Given | 01/09/2019 | 20 mEq | | | | | 09:26 | | | | | | PST | | | | +-------+ +--------+---+---+ +---+---+ | | | +---+---+ + +-------+ +--------+---+---+ | potassium chloride (K-DUR) CR | Given | | 40 mEq | | | | tablet 40 mEq 40 mEq, Oral, | | 9 01:59 | | | | | Once, [place] 01/05/19 at 0155, For 1 | | PST | | | | | dose | | | | | | + +-------+ +--------+---+---+ +---+---+ | | | +---+---+ + +-------+ +--------+---+---+ | potassium chloride (K-DUR) CR | Given | | 40 mEq | | | | tablet 40 mEq 40 mEq, Oral, | | 9 11:53 | | | | | Once, [facility] 01/05/19 at 1100, For 1 | | PST | | | | | dose | | | | | | + +-------+ +--------+---+---+ +---+---+ | | | +---+---+ + +-------+ +--------+---+---+ | potassium chloride (K-DUR) CR | Given | 01/08/2019 | 60 mEq | | | | tablet 60 mEq 60 mEq, Oral, | | 13:06 | | | | | Once, [facility] 01/08/19 at 1130, For 1 | | PST | | | | | dose | | | | | | + +-------+ +--------+---+---+ +---+---+ | | | +---+---+ + +-------+ +--------+-------+---+ | potassium chloride 40 mEq in | Given | | 40 mEq | 130 | | | 520 mL IVPB 40 mEq, Intravenous, | | 9 11:32 | | mL/hr | | | Administer over 4 Hours, Once, | | PST | | | | | 01/06/19 at 0930, For 1 dose | | | | | | + +-------+ +--------+-------+---+ +---+---+ | | | +---+---+ + +-------+ +--------+-------+---+ | potassium chloride 60 mEq in | Given | | 60 mEq | 88.3 | | | 530 mL IVPB 60 mEq, Intravenous, | | 9 08:58 | | mL/hr | | | Administer over 6 Hours, Once, | | PST | | | | | Nina 01/07/19 at 0800, For 1 dose | | | | | | + +-------+ +--------+-------+---+ +---+---+ | | | +---+---+ + +-------+ +---------+-------+---+ | promethazine (PHENERGAN) IVPB | Given | | 12.5 mg | 100 | | | 12.5 mg 12.5 mg, Intravenous, | | 9 10:52 | | mL/hr | | | Administer over 15 Minutes, Every | | PST | | | | | 6 Hours PRN, Nausea, Vomiting, | | | | | | | Starting [facility] 01/07/19 at 0840, | | | | | | | When ordered with ondansetron, | | | | | | | use promethazine as second | | | | | | | treatment choice. | | | | | | + +-------+ +---------+-------+---+ +---+---+ | | | +---+---+ + +---------+ +-------+-------+---+ | promethazine (PHENERGAN) IVPB | New Bag | | 25 mg | 100 | | | 25 mg 25 mg, Intravenous, at 100 | | 9 03:53 | | mL/hr | | | mL/hr, Once, 01/05/19 at | | PST | | | | | 0345, For 1 dose | | | | | | + +---------+ +-------+-------+---+ +---+---+ | | | +---+---+ + +-------+ +--------+---+---+ | sevelamer (RENVELA) tablet 800 | Given | 01/08/2019 | 800 mg | | | | mg 800 mg, Oral, 3 Times Daily | | 18:01 | | | | | With Meals, First dose on Fri | | PST | | | | | 01/05/19 at 0800 | | | | | | + +-------+ +--------+---+---+ +-------+ +--------+---+---+ | Given | 01/09/2019 | 800 mg | | | | | 09:27 | | | | | | PST | | | | +-------+ +--------+---+---+ | Given | 01/09/2019 | 800 mg | | | | | 12:45 | | | | | | PST | | | | +-------+ +--------+---+---+ +---+---+ | | | +---+---+ + +-------+ +--------+---+---+ | traZODone (DESYREL) tablet 100 | Given | | 100 mg | | | | mg 100 mg, Oral, Nightly, First | | 9 22:51 | | | | | dose on 01/05/19 at 2200 | | PST | | | | + +-------+ +--------+---+---+ +-------+ +--------+---+---+ | Given | | 100 mg | | | | | 9 22:35 | | | | | | PST | | | | +-------+ +--------+---+---+ | Given | 01/08/2019 | 100 mg | | | | | 21:28 | | | | | | PST | | | | +-------+ +--------+---+---+ +---+---+ | | | +---+---+ in this encounter
--- OUTSIDE RECORDS SUMMARY | ~2019-01-28 | XMS | Encounter Summary ---
Demographics + + + | Address | [address] | | | [place] [address] | + + + | Home Phone | | + + + | Preferred Language | Unknown | + + + | Marital Status | | + + + | Christian Affiliation | Unknown | + + + | Race | Unknown | + + + | Ethnic Group | Unknown | + + + Author + + + | Author | [facility] | + + + | Organization | [facility] | + + + | Address | Unknown | + + + | Phone | Unavailable | + + + Support + + + + + | Name | Relationship | Address | Phone | + + + + + | Lyubov Smalls | [address] | [place] | | | | | [address] | | + + + + + | Lydia Palm | E[address] | [place] | | | | | [address] | | + + + + + | Jose C Oconnor | ECON | [address] | | | | | [place] | | | | | [address] | | + + + + + Care Team Providers + +------+ + | Care Science Specialist Name | Role | Phone | + +------+ + | Juan F Whitley MD | PCP | | + +------+ + Reason for Visit +--------+ + | Reason | Comments | +--------+ + | Other | November 2018-[facility] Provider Dialysis Rounding Note | +--------+ + Encounter Details +--------+ + + + + | Date | Type | Department | Care Team | Description | +--------+ + + + + | 12/25/ | Documentati | [facility] | Santos Chi MD | Other (November | | 2018 | on Only | [address] | 2019-[facility] Provider | | | | [address] | [address] [place], [place] | Dialysis Rounding | | | | [place] [address] | [phone] | Note) | | | | [phone] | | | +--------+ + + + [...]
--- OUTSIDE RECORDS SUMMARY | ~2019-01-28 | XMS | Clinical Summary ---
Demographics + + + | Address | [address] | | | [place] [address] | + + + | Home Phone | | + + + | Preferred Language | Unknown | + + + | Marital Status | | + + + | Mu-Ism Affiliation | Unknown | + + + | Race | Unknown | + + + | Ethnic Group | Unknown | + + + Author + + + | Author | [facility] [employer] | + + + | Organization | [facility] [employer] | + + + | Address | Unknown | + + + | Phone | Unavailable | + + + Support + + + + + | Name | Relationship | Address | Phone | + + + + + | Lyubov Smalls | MASHA | [place] | | | | | [address] | | + + + + + | Lydia Palm | ECON | [place] | | | | | [address] | | + + + + + | Jose C Oconnor | ECON | [address] | | | | | [place] | | | | | [address] | | + + + + + Care Team Providers + +------+ + | Care Barrel Centerer Name | Role | Phone | + [...] | | | Activ | | (DRISDOL) [id number] | mouth once a week. | | [...] + + + + | Sepsis ([facility]) | 03/16/20 | | | | 18 | 8 | + + + + | Peritonitis ([facility]ERLY [facility]) | 03/16/20 | | | | [...] | | 2018 | | | | (FORMERLY [facility]); End-stage | | | | | | renal disease on | | | | | | peritoneal dialysis | | | | | | ([facility]ERLY [facility]) | +--------+ + + + + [...] | | | MRN: | | | [id number] | | | OM: | | | [...] | | ergocalcife | | | rol [address] | | | units | | | [...] | | | [place], | | | [id number] | | | [place] | | | d | | | [place] | | | n [place] | | | [phone] | | | [phone] 1 | | | weekFadi H | | | Ak[place]m, | | | MD[address] | | | [address] | | | [place] | | | [place] | | | [place] | | | [phone] | | | [phone] | | [...] 2018 | on Only | | | [facility] | | | | | | [...] | | | MRN: | | | [id number] | | | te of | | [...] | | | nding | | | 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 | | | Discharge | | | Information | | | :Follow | | | up:Juan F | | | [place], | | | [id number] | | | [place] | | | d | | | [address] | | | n [place] | | | [phone] | | | [phone] | | | [...] | | ergocalcife | | | rol [address] | | | units | | | [...] | | | miriam | | | [id number]:5 | | | 2 PM | +---+ [...] dialysis | | | | | | ([facility]); Anemia in | | | | | | ESRD (end-stage | | | | | | renal disease) | | | | | | ([facility]); Peritonitis | | | | | [...] | | | MRN: | | | [id number] | | | te of | | [...] | | | [place], | | | [id number] | | | [place] | | | d | | | [place] | | | n [place] | | | [id number] | | | [phone] | | | H Akoum, | | | MD[address] | | | [address] | | | [place] | | | [place] | | | [place] | | | [phone] | | | [phone] | | | [...] | | ergocalcife | | | rol [address] | | | units | | | [...] | | | miriam | | | [id number] | | | 8 PM | +---+ [...] | | | | | [place] [address] | | | + + + + + + + | Specimen | + + | Blood | + + + + + + + | Performing | Address | City/State/Zipcode | Phone Number | | Organization | | | | + + + + + | [facility] | [address] | [place] [address] | [phone] | | LABORATORY | Any. | | | + + + + + Magnesium (01/09/2019 5:46 AM)Only the most recent of 9 results within the time period is included. + + + + + | Component | Value | Ref Range | Performed At | + + + + + | MAGNESIUM | 2.0Comment: Testing | 1.7 - 2.4 mg/dL | [facility] | | | performed at [facility], [address] | | LABORATORY | | | [address], | | | | | [place] [address] | | | + + + + + + + | Specimen | + + | Blood | + + + + + + + | Performing | Address | City/State/Zipcode | Phone Number | | Organization | | | | + + + + + | [facility] | [address] | [place] [address] | [phone] | | LABORATORY | Blvd. | | [...] | | | | | performed at [facility], [address] | | | | | [facility], | | | | | [place] [address] | | | + + + + + + + | Specimen | + + | Blood | + + + + + + + | Performing | Address | City/State/Zipcode | Phone Number | | Organization | | | | + + + + + | [facility] | [address] | [place] [address] | [phone] | | LABORATORY | Blvd. | | [...] the | | | | | MDRD IDWV traceable | | | | | equation.Testing | | | | | performed at [facility], [address] | | | | | [facility], | | | | | [place] [address] | | | + + + + + + + | Specimen | + + | Blood | + + + + + + + | Performing | Address | City/State/Zipcode | Phone Number | | Organization | | | | + + + + + | [facility] | [address] | [place] [address] | [phone] | | LABORATORY | Blvd. | | | + + + + + PROCALCITONIN (01/06/2019 5:29 AM) + + + + + | Component | Value | Ref Range | Performed At | + + + + + | PROCALCITONIN | 0.82 (H)Comment: | <0.5 ng/mL | [facility] | | | INTERPRETIVE | | [...] performed | | | | | at [facility];[address] [place] [address] | | | | | [facility];[place] [address] | | | + + + + + + + + + + | Performing | Address | City/State/Zipcode | Phone Number | | Organization | | | | + + + + + | [facility] | [address] | [place] [address] | | + + + + + C-reactive protein (01/06/2019 5:29 AM)Only the most recent of 2 results within the time garfield drake is included. + + + + + | Component | Value | Ref Range | Performed At | + + + + + | CRP | 0.3Comment: Testing | <0.5 mg/dL | [facility] | | | performed at [facility], [address] | | LABORATORY | | | [facility], | | | | | [place] [address] | | | + + + + + + + | Specimen | + + | Blood | + + + + + + + | Performing | Address | City/State/Zipcode | Phone Number | | Organization | | | | + + + + + | [facility] | [address] [place] [address] | [place] [address] | [phone] | | LABORATORY | Any. | | [...] | [facility] | | | performed at [facility], [address] | | LABORATORY | | | [address], | | | | | [place] [address] | | | + + + + + + + | Specimen | + + | Blood | + + + + + + + | Performing | Address | City/State/Zipcode | Phone Number | | Organization | | | | + + + + + | [facility] | [address] | [place] [address] | [phone] | | LABORATORY | Blvd. | | [...] 0.04 | 0.00 - 0.04 ng/mL | [facility] | | | ng/mL or | [...] performed | | | | | at [facility];[address] | | | | [address];[place] [address] | | | + + + + + + + | Specimen | + + | Blood | + + + + + + + | Performing | Address | City/State/Zipcode | Phone Number | | Organization | | | | + + + + + | [facility] | [address] | [place] [address] | | + + + + + Protime-INR (01/05/2019 5:42 AM) + + + + + | Component | Value | Ref Range | Performed At | + + + + + | INR | 1.1Comment: REFERENCE | | [facility] | | | RANGE:0.9 - | [...] | | | | | performed at [facility];[address] | | | | | [address];[place], [place] | | | | | [address] | | | + + + + + + + | Specimen | + + | Blood | + + + + + + + | Performing | Address | City/State/Zipcode | Phone Number | | Organization | | | | + + + + + | [facility] | [address] | [place] [address] | | + + + + + [...] | 39Comment: Testing | <100 mg/dL | [facility] | | | performed at [facility], [address] | | LABORATORY | | | [address] | | | | | [place] [address] | | | + + + + + + + | Specimen | + + | Blood | + + + + + + + | Performing | Address | City/State/Zipcode | Phone Number | | Organization | | | | + + + + + | [facility] | [address] | [place] [address] | [phone] | | LABORATORY | Blvd. | | [...] + + + + | Calculated P [place] | 27 | degrees | [facility] | + + + + + | Calculated R [place] | 79 | degrees | [facility] | + + + + + | Calculated T [place] | -142 | degrees | [facility] | + + + + + | Diagnosis | Normal sinus rhythm with | | [facility] | | | sinus arrhythmiaST & [...] -COMPUTER | | | | | (500), general expeditor Collin, | | | | | Rashel Mercado (123) on | | | | | 01/05/2019 3:50:25 AM | | | + + + + + + + + + + | Performing | Address | City/State/Zipcode | Phone Number | | Organization | | | | + + + + + | [facility] | [address] | [place] [address] | | + + + + + ED INFORMATION EXCHANGE (01/04/2019 10:36 PM) + + + | Narrative | Performed At | + + + | [id number] [id number] Criteria Met Care | ED | | Guidelines in 12 2 in 2 Security and Safety No | INFORMATION | | recent Security Events currently on file ED Care Guidelines There | EXCHANGE | | are currently no ED Care Guidelines for this patient. Please check | | | your facility's medical records system. Care History | | | Medical/Surgical 06/10/18 12:00 AM [facility] | | | Patient has not followed up with PCP in regards to ED visits. Last | | | time patient was seen by PCP was 06/10/17. Patient has done | | | multiple no shows to [facility]. Patient has been | | | seen by [facility] infectious disease for follow up [...] | (12 mo.) Facility Visits Low Acuity [facility] | | | 5 0 [facility] 5 0 Total 10 0 Note: Visits | | | indicate total known visits. Medicaid Low Acuity Dx are the number of | | | primary diagnoses on the Medicaid's Low Acuity dx list. Recent | | | Emergency Department Visit Summary Date Facility City State Type | | | Diagnoses or Chief Complaint Jan 04, 2019 [facility] Lexi.[place]innie | | | [place] Emergency Jan 04, 2019 [facility]. [place] | | | Emergency Chief Complaint: DEHYDRATION/CONSTIPATION Dec 31, | | | 2018 [facility]. [place] Emergency Other senior care | | | (current) drug therapy Anxiety disorder, unspecified | | | Dependence on renal dialysis Essential (primary) hypertension | | | Dec 24, 2018 [facility]. 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 [place] Emergency Abdominal Pain | | | Chest Pain Spontaneous bacterial peritonitis | | | Bandemia Dependence on renal dialysis End stage renal | | | disease Jun 07, 2018 [facility]. [place] Emergency | | | Peritonitis, unspecified Panic disorder [episodic | | | paroxysmal anxiety] Chronic kidney disease, unspecified | | | Dependence on renal dialysis Jun 04, 2018 [facility] Lexi.CIris | | | [place] Emergency Flank Pain Unspecified abdominal | | | pain Dependence on renal dialysis Patient's | | | noncompliance with other medical treatment and regimen End | | | stage renal disease Noninflammatory disorder of ovary, | | | fallopian tube and broad ligament, unspecified March 16, 2018 [facility] | | [facility] Emergency abdominal pain | | | Chronic kidney disease, unspecified Hypotension, unspecified | | | Unspecified abdominal pain March 11, 2018 [facility] | | | [place] Emergency Unspecified abdominal pain | | | Peritonitis, unspecified Infection and inflammatory reaction | | | due to other cardiac and vascular devices, implants and grafts, | | | initial encounter Dependence on renal dialysis Other | | | senior care (current) drug therapy Essential (primary) | | | hypertension Mar 04[facility] | | | Emergency Emesis Abdominal Pain Recent | | | Inpatient Visit Summary Date Facility City State Type Diagnoses or | | | Chief [facility] | | | Medicine Unspecified abdominal pain End stage renal | | | disease Dependence on renal dialysis Dec 07, 2018 [facility] | | | [facility] Bandemia | | | Spontaneous bacterial peritonitis End stage renal disease | | | Dependence on renal dialysis Peritonitis, unspecified | | | Infection and inflammatory reaction due to peritoneal dialysis | | | catheter, subsequent encounter Anemia in chronic kidney disease | | | Jun 07[facility] 2018 [facility] | | | Bacterial peritonitis End stage renal disease | | | Dependence on renal dialysis March 16, 2018 [facility] | | | [facility] General Medicine Chronic kidney disease, | | | unspecified Hypotension, unspecified Unspecified | | | abdominal pain Dependence on renal dialysis End stage | | | renal disease Noninflammatory disorder of ovary, fallopian tube | | | and broad ligament, unspecified Mar 04, 2018 [facility] | | | [facility] Recovery Emesis Abdominal Pain | | | Generalized abdominal pain Dependence on renal dialysis | | | End stage renal disease Nausea with vomiting, unspecified | | | Care Providers Provider PRC Type Phone Fax Service Dates | | | JUAN F WHITLEY MD Family Medicine Jun 08, 2018 - Current | | | [facility] This patient has registered at the [facility] | | | [facility] Emergency Department For more information visit: | | | [email or web address] | | | [email or web address] The above information is provided for the sole purpose of | | | patient treatment. Use of this information beyond the terms of Data | | | Sharing Memorandum of Understanding and License Agreement is | | | prohibited. In certain cases not all visits may be represented. | | | Consult the aforementioned facilities for additional information. | | | 2019 [email or web address] - [place], [place] - | | | [email or web address] | | + + + + + | Procedure Note | + + | Interface, Lab - 01/04/2019 10:38 PM PST Formatting of this note may be different | | from the original.[id number] [id number] Met Care Guidelines 10 in 12 | | 2 in 2Security and SafetyNo recent Security Events currently on fileED Care | | GuidelinesThere are currently no ED Care Guidelines for this patient. Please check your | | facility's medical records system.Care HistoryMedical/Surgical06/10/18 12:00 AM [facility] | | [facility] Patient has not followed up with PCP in regards to ED visits. Last | | time patient was seen by PCP was 06/10/17. Patient has done multiple no shows to | | [facility]. Patient has been seen by [facility] infectious disease for follow | [...] Visit Count (12 mo.)Facility Visits Low Acuity [facility] | [facility] 5 0 [facility] 5 0 Total 10 0 Note: Visits indicate total | | known visits. Medicaid Low Acuity Dx are the number of primary diagnoses on the | | Medicaid's Low Acuity dx list. Recent Emergency Department Visit SummaryDate Facility | | City State Type Diagnoses or Chief Complaint Jan 04, 2019 [facility] [place] | | Emergency Jan 04, 2019 [facility] [place] Emergency Chief Complaint: | | DEHYDRATION/CONSTIPATION Dec 31, 2018 [facility] 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 [place] Emergency Peritonitis, unspecified Panic disorder | | [episodic paroxysmal anxiety] Chronic kidney disease, unspecified Dependence on | | renal dialysis Jun 04, 2018 [facility] Moe [place] Emergency Flank Pain | | Unspecified abdominal pain Dependence on renal dialysis Patient's noncompliance | | with other medical treatment and regimen End stage renal disease Noninflammatory | | disorder of ovary, fallopian tube and broad ligament, unspecified March 16, 2018 [facility] | | Moe [place] Emergency abdominal pain Chronic kidney disease, | | unspecified Hypotension, unspecified Unspecified abdominal pain March 11, 2018 [facility] | | [place] Emergency Unspecified abdominal pain Peritonitis, | | unspecified Infection and inflammatory reaction due to other cardiac and vascular | | devices, implants and grafts, initial encounter Dependence on renal dialysis Other | | senior care (current) drug therapy Essential (primary) hypertension Mar 04, 2018 | | [facility] [place] Emergency Emesis Abdominal Pain Recent Inpatient | | Visit SummaryDate Facility City State Type Diagnoses or Chief Complaint Dec 24, 2018 | | [facility] Moe [place] General Medicine Unspecified abdominal pain End | | stage renal disease Dependence on renal dialysis Dec 07, 2018 [facility] Jairo [facility] [place] [facility] Bandemia Spontaneous bacterial peritonitis End stage | | renal disease Dependence on renal dialysis Peritonitis, unspecified Infection | | and inflammatory reaction due to peritoneal dialysis catheter, subsequent encounter | | Anemia in chronic kidney disease Jun 07, 2018 [facility] Jairo [place] General | | Medicine Bacterial peritonitis End stage renal disease Dependence on renal | | dialysis March 16, 2018 [facility] Jairo [place] General Medicine Chronic kidney | | disease, unspecified Hypotension, unspecified Unspecified abdominal pain | | Dependence on renal dialysis End stage renal disease Noninflammatory disorder of | | ovary, fallopian tube and broad ligament, unspecified Mar 04, 2018 [facility] Moe Gill | | [place] Recovery Emesis Abdominal Pain Generalized abdominal pain | | Dependence on renal dialysis End stage renal disease Nausea with vomiting, | | unspecified Care ProvidersProvider PRC Type Phone Fax Service Dates JUAN F WHITLEY MD | | Family Medicine Jun 08, 2018 - Current WUT PortalThis patient has registered | | at the [facility] Emergency Department For more information visit: | | [email or web address] The above | | information is provided for the sole purpose of patient treatment. Use of this | | information beyond the terms of Data Sharing Memorandum of Understanding and License | | Agreement is prohibited. In certain cases not all visits may be represented. Consult the | | aforementioned facilities for additional information. 2019 [employer] | | [email or web address] - [place], [place] - [email or web address] | |Jun 07, [address] [facility] [place] Emergency | | Peritonitis, unspecified | | Panic disorder [episodic paroxysmal anxiety] | | Chronic kidney disease, unspecified | | Dependence on renal dialysis | | | |Jun 04, 2018 [facility] Jairo [place] Emergency | | Flank Pain | | Unspecified abdominal pain | | Dependence on renal dialysis | | Patient's noncompliance with other medical treatment and regimen | | End stage renal disease | | Noninflammatory disorder of ovary, fallopian tube and broad ligament, unspecified | | | |March 16, 2018 [facility] Emergency | | abdominal pain | | Chronic kidney disease, unspecified | | Hypotension, unspecified | | Unspecified abdominal pain | | | |March 11, 2018 [facility] 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 | | Essential (primary) hypertension | | | |Mar 04, 2018 [facility] Emergency | | Emesis | | Abdominal Pain | | | | | | | |Recent Inpatient Visit Summary | |Date Facility City State Type Diagnoses or Chief Complaint | |Dec 24, 2018 [facility] General Medicine | | Unspecified abdominal pain | | End stage renal disease | | Dependence on renal dialysis | | | |Dec 07, 2018 [facility] General Medicine | | Bandemia | | Spontaneous bacterial peritonitis | | End stage renal disease | | Dependence on renal dialysis | | Peritonitis, unspecified | | Infection and inflammatory reaction due to peritoneal dialysis catheter, subsequent enco unter | | Anemia in chronic kidney disease | | | |Jun 07, 2018 [facility] General Medicine | | Bacterial peritonitis | | End stage renal disease | | Dependence on renal dialysis | | | |March 16, 2018 [facility] General Medicine | | Chronic kidney disease, unspecified | | Hypotension, unspecified | | Unspecified abdominal pain | | Dependence on renal dialysis | | End stage renal disease | | Noninflammatory disorder of ovary, fallopian tube and broad ligament, unspecified | | | |Mar 04, 2018 [facility] Recovery | | Emesis | | Abdominal [...] | |This patient has registered at the [facility] Emergency Department | |For more information visit: [email or web address] | |The above information is provided for the sole purpose of patient treatment. Use of this in formation beyond the terms of Data Sharing Memorandum of Understanding and License Agreement is prohibited. In | |certain cases not all visits may be represented. Consult the aforementioned facilities for additional information. | |2019 [email or web address]. - [place], [place] - [email or web address] | + + + +---------+ + + [...] HYDROcodone-acetaminophen, HYDROmorphone [place] | | | HYDROmorphone, hjvgwyijz-tbpmwq-knxmpelrnz, ondansetron [place] | | | ondansetron, polyethylene [...] | | last 3 completed shifts: In: 60987 [P.O.:250; Other:73632] Out: | | | 14235 [Emesis/NG output:200; Other:95226] Assessment: Ms. Oconnor | | | is [...] | [facility] | | | performed at [facility], [address] | | LABORATORY | | | [address], | | | | | [place] [address] | | | + + + + + + + + + + | Performing | Address | City/State/Zipcode | Phone Number | | Organization | | | | + + + + + | [facility] | [address] [place] [address] | [place] [address] | [phone] | | LABORATORY | [address] | | | + + + + + lilian Bernard (12/27/2018 5:44 AM)Only the most recent of 2 results within the time garfield drake is included. + + + + + | Component | Value | Ref Range | Performed At | + + + + + | VANCOMYCIN,RANDOM | 20.5Comment: Testing | ug/mL | [facility] | | | performed at [facility];[address] | | | | | [address];[place], [place] | | | | | [address] | | | + + + + + + + | Specimen | + + | Blood | + + + + + + + | Performing | Address | City/State/Zipcode | Phone Number | | Organization | | | | + + + + + | [facility] | [address] | [place] [address] | | + + + + + [...] HYDROcodone-acetaminophen, HYDROmorphone OR | | | HYDROmorphone, hlkiitqfj-fjlxff-cgcidjggoy, ondansetron OR | | | ondansetron, polyethylene [...] + + + + | Calculated P [place] | 3 | degrees | [facility] | + + + + + | Calculated R [place] | 35 | degrees | [facility] | + + + + + | Calculated T [place] | 134 | degrees | [facility] [...] | + + + + + | [facility] | [address] | [place] [address] | | + + + + + [...] (H) | 0.50 - 1.00 mg/dL | [facility] | + + + + + | CALCIUM | 8.3 (L) | 8.5 - 10.5 mg/dL | [facility] | + + + + + | Albumin | 3.9 | 3.6 - 5.0 g/dL | [facility] | + + + + + | PHOSPHORUS | 8.7 (H) | 2.3 - 4.8 mg/dL | [facility] | + + + + + | EGFR | 3 (L)Comment: GFR <60: | >60 mL/min/1.73m2 | [facility] | | | CHRONIC [...] the | | | | | MDRD [facility] traceable | | | | | equation.Testing | | | | | performed at [facility] | | | | | [facility];[place], [place] | | | | | [address] | | | + + + + + + + | Specimen | + + | Blood | + + + + + + + | Performing | Address | City/State/Zipcode | Phone Number | | Organization | | | | + + + + + | [facility] | [address] | [place] [address] | | + + + + + [...] | + + + + + | [facility] | [address] | [place] [address] | [phone] | | LABORATORY | [address]vd[address] | | [...] + + + + | RBC'S | <15555 | /mm3 | [facility] | + [...] | MONOCYTES/MACROPHAGE | 3 | % | [facility] | | S | | | | + + + + + | CELLS COUNTED | 100Comment: Testing | | [facility] | | | performed at [facility];[address] | | | | | [address];[place] | | | | | [address] | | | + + + + + + + | Specimen | + + | Other - Peritoneal | | [place] | + + + + + + + | Performing | Address | City/State/Zipcode | Phone Number | | Organization | | | | + + + + + | [facility] | [address] | [place] [address] | | + + + + + [...] SPECIAL REQUESTS | LEFT WRIST | | [facility] | + + + [...] | + + + + + | [facility] | [address] | [place] [address] | [phone] | | LABORATORY | Any. | | | + + + + + | [facility] | [address] | [place] [address] | | + + + + + [...] | + + + + + | [facility] | [address] | [place] [address] | [phone] | | LABORATORY | Any. | | | + + + + + | [facility] | [address] | [place] [address] | | + + + + + MRSA by PCR (12/25/2018 1:29 AM)Only the most recent of 2 results within the time period i s included. + + + + + | Component | Value | Ref Range | Performed At | + + + + + | SOURCE | NARES(NOSE) | | [facility] | + + + + + | MRSA PCR | NEGATIVEComment: Testing | NEGATIVE | [facility] | | | performed at [facility];[address] | | | | | [address];[place], [place] | | | | | [address] | | | + + + + + + + | Specimen | + + | Nasopharyngeal - | | Nares(Nose) | + + + + + + + | Performing | Address | City/State/Zipcode | Phone Number | | Organization | | | | + + + + + | [facility] | [address] | [place] [address] | | + + + + + [...] 3 completed | | | shifts: In: 55000 [P.O.:1110; I.V.:2701; Other:93122] Out: 54514 | | | [Emesis/NG output:240; Other:96336] Assessment: Ms. Oconnor is a | | [...] 3 completed | | | shifts: In: 42890 [P.O.:1200; I.V.:2902; Other:60435] Out: 59515 | | | [Other:54615] Assessment: Ms. Oconnor is a 38 y.o. [...] | LABORATORY | | | performed at [facility], [address] | | | | [address], | | | | | [place] [address] | | | | | | | | + + + + + + + | Specimen | + + | Blood | + + + + + + + | Performing | Address | City/State/Zipcode | Phone Number | | Organization | | | | + + + + + | [facility] | [address] | [place] [address] | [phone] | | LABORATORY | [place] | | [...] RAMONA OCONNOR Date of : 1980 | [facility] | | Performing Physician: Imtiaz Mari MD [...] Vmean: 1.00 m/s AV VTI: 26.68 cm QUNAG Vmax: | | | 2.35 cm2 QUANG [...] RV | | | S': 0.11 m/s Stock Control Supervisor: NAVJOT Authenticated by: Imtiaz Mari | | | Report Date/Time: 12-08-2018 17:48:59 | | + + + + + | Procedure Note | + + | Endy, Rad Results In - 12/08/2018 5:49 PM PST Patient Name: Shlomo OCONNOR of | | : 1980Accession: [id number] Physician: Imtiaz Mari | | MD INDICATIONS [...] mlLAESV Index (A-L): 26.00 ml/m2LAAs A2C: 16.18 ie0NMCNP | | A-L A2C: 41.14 mlLALs A2C: 5.40 cmLAAs A4C: 18.51 se2RNUPN A-L A4C: 51.64 | | mlLALs A4C: 5.63 cmTAPSE: 1.80 cmAV maxP.66 mmHgAV meanP.54 mmHgAV Vmax: | | 1.38 m/Monica Vmean: 1.00 m/Monica VTI: 26.68 cmAVA Vmax: 2.35 cm2AVA (VTI): 2.52 | | sy0JIHC Vmax: 0.00 cm2/m2AVAI (VTI): 0.00 cm2/m2LVOT maxP.36 [...] |RV S': 0.11 m/s | | | |Stock Control Supervisor: MW | |Authenticated by: Imtiaz Mari MD [...] [facility] | [address] | [place] [address] | | + + + + + [...] | [facility] | [address] | [place] [address] | | + + + + + [...] [facility] | [address] | [place] [address] | | + + + + + [...] (H) | 3.80 - 11.00 K/uL | [facility] | + + + + + | RBC | 4.73 | 3.70 - 5.10 M/uL | [facility] | + + + + + | HGB | 13.6 | 11.3 - 15.5 g/dL | [facility] | + + + + + | HCT | 40.9 | 34.0 - 46.0 % | [facility] | + + + + + | MCV | 86.4 | 80.0 - 100.0 fl | [facility] | + + + + + | MCH | 28.8 | 27.0 - 34.0 pg | [facility] | + + + + + | MCHC | 33.4 | 32.0 - 35.5 g/dL | [facility] | + + + + + | RDW SD | 45.1 | 37 - 53 fl | [facility] | + + + + + | PLT | 484 (H) | 150 - 400 K/uL | [facility] | + + + [...] 9.4 | 8.5 - 10.5 mg/dL | [facility] | + + + + + | TOTAL PROTEIN | 8.7 (H) | 6.3 - 8.2 g/dL | [facility] | + + + + + | Albumin | 4.9 | 3.6 - 5.0 g/dL | [facility] | + + + [...] 146 | 30 - 240 U/L | [facility] | + + + + + | INR | 0.9Comment: REFERENCE | | [facility] | | | RANGE:0.9 - | [...] 28 | 23 - 32 seconds | [facility] | + + + + + | MMB | 1.7 | 0.5 - 3.6 ng/mL | [facility] | + + + + + | CK-MB Index | 1.2Comment: CK INDEX | | [facility] | | | INTERPRETATION: | | [...] | | | | | performed at [facility] | | | | | [address];[place] | | | | | [address] | | | + + + + + + + + + + | Performing | Address | City/State/Zipcode | Phone Number | | Organization | | | | + + + + + | [facility] | [address] | [place] [address] | | + + + + + D-dimer, quantitative (12/07/2018 3:30 PM) + + + + + | Component | Value | Ref Range | Performed At | + + + + + | D DIMER, | 0.34Comment: Testing | 0.19 - 0.50 mg/L FEU | [facility] | | QUANTITATIVE | performed at [facility];[address];[place] | | | | | [address] | | | + + + + + + + | Specimen | + + | Blood | + + + + + + + | Performing | Address | City/State/Zipcode | Phone Number | | Organization | | | | + + + + + | [facility] | [address] | [place] [address] | | + + + + + BNP (12/07/2018 3:30 PM) + + + + + | Component | Value | Ref Range | Performed At | + + + + + | BRAIN NATRIURETIC | 50.36Comment: Testing | 0 - 100 pg/mL | [facility] | | PEPTIDE | performed at [facility];[address] | | | | | [address];[place] | | | | | [address] | | | + + + + + + + | Specimen | + + | Blood | + + + + + + + | Performing | Address | City/State/Zipcode | Phone Number | | Organization | | | | + + + + + | [facility] | [address] | [place] [address] | | + + + + + Lipase (12/07/2018 3:30 PM) + + + + + | Component | Value | Ref Range | Performed At | + + + + + | LIPASE | 51Comment: NOTE NEW | 12 - 53 U/L | [facility] | | | REFERENCE RANGETesting | | | | | performed at [facility] | | | | | [address];[place], [place] | | | | | [address] | | | + + + + + + + | Specimen | + + | Blood | + + + + + + + | Performing | Address | City/State/Zipcode | Phone Number | | Organization | | | | + + + + + | [facility] | [address] | [place] [address] | | + + + + + [...] +------+-------+ + | PREMERA | PREMER | [id number] | | | [address] [address] | | | A BLUE | | | | [place], [place] | | | [place]OSS | | | | [address] | | | FED | | | | | | | PPO | | | | | + +--------+ +------+-------+ + | MEDICARE | MEDICA | [id number] | | | [address] | | | RE | | | | [place] [address] | | | PART A | | | | | | | ONLY | | | | | + +--------+ +------+-------+ + | /[facility] | YELLOW | [id number] | | | | | PLANS | [...] | ca[place] | | | [phone] | [phone] | + +--------+ +--------+ + +
--- OUTSIDE RECORDS SUMMARY | ~2019-01-28 | XMS | Encounter Summary ---
Demographics + + + | Address | [address] | | | [place] [address] | + + + | Home Phone | | + + + | Preferred Language | Unknown | + + + | Marital Status | | + + + | Jainism Affiliation | Unknown | + + + | Race | Unknown | + + + | Ethnic Group | Unknown | + + + Author + + + | Author | [facility] [employer] | + + + | Organization | [facility] | + + + | Address | Unknown | + + + | Phone | Unavailable | + + + Support + + + + + | Name | Relationship | Address | Phone | + + + + + | Lyubov Smalls | MASHA | [place] | | | | | [address] | | + + + + + | Lydia Palm | ECON | [place] | | | | | [address] | | + + + + + | Jose C Oconnor | ECON | [address] | | | | | [place] | | | | | [address] | | + + + + + Care Team Providers + +------+ + | Care Degree Clerk Name | Role | Phone | [...] (FORMERLY [facility]) | | | +--------+--------+ + + + + Encounter Details +--------+ + + + + | Date | Type | Department | Care Team | Description | +--------+ + + + + | 12/07/ | Hospital | Merged With [facility] | Fito Crespo, | Spontaneous | | 2019 - | Encounter | [facility] | MD Ebony PETERS | bacterial | | | | [facility] | EMERGENCY DEPARTMENT | peritonitis (HCC) | | 12/10/ | | [address] | [place] [address] | (Primary Dx); | | 2018 | | [place] [address] | [phone] | Bandemia; ESRD on | | | | [phone] | | peritoneal dialysis | | | | | Ginger Bass | ([facility]); Anemia in | | | | | [place], [place] [address] | ESRD (end-stage | | | | | [address] | renal disease) | | | | | [place] [address] | (FORMERLY [facility]); Peritonitis | | | | | [phone] | due to infected | | | | | | peritoneal dialysis | | | | | Hilda Edwards DO | catheter, subsequent | | | | | [address] | encounter ([facility]) | | | | | [place] [address] | | | | | | [phone] | | | | | | | [...] Information: Follow [place]: [place] [address] [place] [id number] Santos Rey MD [facility] Yahir Quinteros [address] [address] Medication List START taking these medications cefdinir [...] Refills: 0 Commonly known as: KlonoPIN ergocalciferol 81085 units capsule Refills: 0 Commonly known as: [...] cannot be sent through Care Everywhere.Cefdinir capsules (Luxembourger )Metoclopramide tablets (Luxembourger)Metronidazole tablets or capsules (Luxembourger)in this encounte r Medications at Time of [...] | | | | | | (DRISDOL) [address] | mouth once a week. | | [...] note may be different from the original. [facility] Service: Hospitalist Progress Note Hospital [...] may be dif ferent from the original. [facility] Service: Infectious Disease Progress Note [...] may be diffe rent from the original. [facility] Service: Hospitalist Progress Note Hospital [...] Full Code Hilda Edwards, DO 12/08/2018FrApril isaac, [facility] - 12/07/2018 11:24 PM PSTRenal Dosing Monitoring: [...] | + +--------+ + + + | [facility] CARD PANEL W/O | STAT | 12/07/2018 [...] 3 completed | | | shifts: In: 54819 [P.O.:1110; I.V.:2701; Other:58278] Out: 34125 | | | [Emesis/NG output:240; Other:96108] Assessment: Ms. Oconnor is a | | [...] 3 completed | | | shifts: In: 83099 [P.O.:1200; I.V.:2902; Other:82834] Out: 84812 | | | [Other:56067] Assessment: Ms. Oconnor is a 38 y.o. [...] the | | | | | MDRD IDGA traceable | | | | | equation.Testing | | | | | performed at [facility], [address] | | | | | [facility], | | | | | [place] [address] | | | + + + + + + + | Specimen | + + | Blood | + + + + + + + | Performing | Address | City/State/Zipcode | Phone Number | | Organization | | | | + + + + + | [facility] | [address] | [place] [address] | [phone] | | LABORATORY | Blvd. | | [...] | LABORATORY | | | performed at [facility], [address] | | | | | [address], | | | | | [place] [address] | | | | | | | | + + + + + + + | Specimen | + + | Blood | + + + + + + + | Performing | Address | City/State/Zipcode | Phone Number | | Organization | | | | + + + + + | [facility] | [address] | [place] [address] | [phone] | | LABORATORY | Blvd. | | [...] RAMONA OCONNOR Date of : 1980 | [facility] | | Performing Physician: Imtiaz Mari MD [...] RV | | | S': 0.11 m/s Chemistry Associate: NAVJOT Authenticated by: Imtiaz Mari | | | Report Date/Time: 12-08-2018 17:48:59 | | + + + + + | Procedure Note | + + | Migue Schumacher In 12/08/2018 5:49 PM PST Patient Name: Shlomo OCONNOR of | | : 1980Accession: [id number] Physician: Imtiaz Mari | | INDICATIONS p [...] mlLAESV Index (A-L): 26.00 ml/m2LAAs A2C: 16.18 [id number] | | A-L A2C: 41.14 mlLALs A2C: 5.40 cmLAAs A4C: 18.51 vy4DRSTE A-L A4C: 51.64 | | mlLALs A4C: 5.63 cmTAPSE: 1.80 cmAV maxP.66 mmHgAV meanP.54 mmHgAV Vmax: | | 1.38 m/Monica Vmean: 1.00 m/Monica VTI: 26.68 cmAVA Vmax: 2.35 cm2AVA (VTI): 2.52 | | ow6CEEI Vmax: 0.00 cm2/m2AVAI (VTI): 0.00 cm2/m2LVOT maxP.36 [...] |RV S': 0.11 m/s | | | |Chemistry Associate: MW | |Authenticated by: Imtiaz Mari MD [...] + + + + | [facility] | [address] | [place] [address] | | + + + + + [...] 0.04 | 0.00 - 0.04 ng/mL | [facility] | | | ng/mL or [...] performed | | | | | at [facility];[address] [place] [address] | | | | | Blvd;[place] [address] | | | + + + + + + + | Specimen | + + | Blood | + + + + + + + | Performing | Address | City/State/Zipcode | Phone Number | | Organization | | | | + + + + + | [facility] | [address] | [place] [address] | | + + + + + Phosphorus (12/08/2018 6:03 AM) + + + + + | Component | Value | Ref Range | Performed At | + + + + + | PHOSPHORUS | 6.1 (H)Comment: Testing | 2.3 - 4.8 mg/dL | [facility] | | | performed at [facility], [address] | | LABORATORY | | | [address], | | | | | [place] [address] | | | + + + + + + + | Specimen | + + | Blood | + + + + + + + | Performing | Address | City/State/Zipcode | Phone Number | | Organization | | | | + + + + + | [facility] | [address] | [place] [address] | [phone] | | LABORATORY | Any. | | | + + + + + Magnesium (12/08/2018 6:03 AM) + + + + + | Component | Value | Ref Range | Performed At | + + + + + | MAGNESIUM | 3.1 (H)Comment: Testing | 1.7 - 2.4 mg/dL | [facility] | | | performed at [facility], [address] | | LABORATORY | | | [address], | | | | | [place] [address] | | | + + + + + + + | Specimen | + + | Blood | + + + + + + + | Performing | Address | City/State/Zipcode | Phone Number | | Organization | | | | + + + + + | [facility] | [address] | [place] [address] | [phone] | | LABORATORY | Blvd. | | [...] (H) | 0.50 - 1.00 mg/dL | [facility] | | | | | LABORATORY | + + + + + | BUN/CREAT | 3 | | [facility] | | | | | LABORATORY | + + + + + | CALCIUM | 8.1 (L) | 8.5 - 10.5 mg/dL | [facility] | | | | | LABORATORY | + + + + + | EGFR | 3 (L)Comment: GFR <60: | >60 mL/min/1.73m2 | [facility] | | | CHRONIC KIDNEY DISEASE, [...] | | | | | performed at [facility], [address] | | | | | [facility], | | | | | [place] [address] | | | + + + + + + + | Specimen | + + | Blood | + + + + + + + | Performing | Address | City/State/Zipcode | Phone Number | | Organization | | | | + + + + + | [facility] | [address] | [place] [address] | [phone] | | LABORATORY | Any. | | [...] | [facility] | | | performed at [facility], [address] | | LABORATORY | | | [address], | | | | | [place] [address] | | | + + + + + + + | Specimen | + + | Blood | + + + + + + + | Performing | Address | City/State/Zipcode | Phone Number | | Organization | | | | + + + + + | [facility] | [address] | [place] [address] | [phone] | | LABORATORY | Blvd. | | | + + + + + MRSA by PCR (12/08/2018 1:18 AM) + + + + + | Component | Value | Ref Range | Performed At | + + + + + | SOURCE | NARES(NOSE) | | [facility] | + + + + + | MRSA PCR | NEGATIVEComment: Testing | NEGATIVE | [facility] | | | performed at [facility];[address];[place] | | | | | [address] | | | + + + + + + + | Specimen | + + | Nasopharyngeal - | | Nares(Nose) | + + + + + + + | Performing | Address | City/State/Zipcode | Phone Number | | Organization | | | | + + + + + | [facility] | [address] | [place] [address] | | + + + + + [...] | + + + + + | [facility] | [address] | [place] [address] | [phone] | | LABORATORY | Any. | | | + + + + + | [facility] | [address] | [place] [address] | | + + + + + Troponin I (12/07/2018 11:53 PM) + + + + + | Component | Value | Ref Range | Performed At | + + + + + | TROPONIN I | 0.026Comment: 0.04 | 0.00 - 0.04 ng/mL | [facility] | | | ng/mL or [...] performed | | | | | at [facility];[address] | | | | | [address];[place] [address] | | | + + + + + + + | Specimen | + + | Blood | + + + + + + + | Performing | Address | City/State/Zipcode | Phone Number | | Organization | | | | + + + + + | [facility] | [address] | [place] [address] | | + + + + + Body fluid cell count (12/07/2018 8:00 PM) + + + + + | Component | Value | Ref Range | Performed At | + + + + + | FLUID TYPE | PERITONEAL FLUID | | [facility] | + + + [...] | MONOCYTES/MACROPHAGE | 26 | % | [facility] | | S | | | | + + + + + | CELLS COUNTED | 100Comment: Testing | | [facility] | | | performed at [facility];[address] | | | | | [address];[place], [place] | | | | | [address] | | | + + + + + + + | Specimen | + + | Other - Peritoneal | | [place] | + + + + + + + | Performing | Address | City/State/Zipcode | Phone Number | | Organization | | | | + + + + + | [facility] | [address] | [place] [address] | | + + + + + [...] STAIN | NO ORGANISMS SEEN | | [facility] | + + + [...] + + + | [facility] | [address] | [place] [address] | [phone] | | LABORATORY | Blvd. | | | + + + + + | [facility] | [address] | [place] [address] | | + + + + + [...] + + + + | [facility] | [address] | [place] [address] | | + + + + + [...] | + + + + + | [facility] | [address] | [place] [address] | | + + + + + [...] + + + + | Calculated P [place] | 47 | degrees | [facility] | + + + + + | Calculated R [place] | 114 | degrees | [facility] E[facility] | + + + + + | Calculated T [place] | 68 | degrees | [facility] EKG [...] -COMPUTER (500), | | | | | video effects editor Rashel Polanco | | | | | Rogelio (123) on 12/08/2018 | | | | | 2:29:38 AM | | | + + + + + + + + + + | Performing | Address | City/State/Zipcode | Phone Number | | Organization | | | | + + + + + | [facility] | [address] | [place] [address] | | + + + + + [...] Testing | 2.3 - 4.8 mg/dL | [facility] | | | performed at [facility];[address] | | | | | [address];[place] | | | | | [address] | | | + + + + + + + | Specimen | + + | Blood | + + + + + + + | Performing | Address | City/State/Zipcode | Phone Number | | Organization | | | | + + + + + | [facility] | [address] | [facility] [address] | | + + + + + Magnesium (12/07/2018 3:30 PM) + + + + + | Component | Value | Ref Range | Performed At | + + + + + | MAGNESIUM | 3.2 (H)Comment: Testing | 1.7 - 2.4 mg/dL | [facility] | | | performed at [facility];[address] | | | | | [address];[place] | | | | | [address] | | | + + + + + + + | Specimen | + + | Blood | + + + + + + + | Performing | Address | City/State/Zipcode | Phone Number | | Organization | | | | + + + + + | [facility] | [address] | [place] [address] | | + + + + + BNP (12/07/2018 3:30 PM) + + + + + | Component | Value | Ref Range | Performed At | + + + + + | BRAIN NATRIURETIC | 50.36Comment: Testing | 0 - 100 pg/mL | [facility] | | PEPTIDE | performed at [facility];[address] | | | | | [address];[place] | | | | | [address] | | | + + + + + + + | Specimen | + + | Blood | + + + + + + + | Performing | Address | City/State/Zipcode | Phone Number | | Organization | | | | + + + + + | [facility] | [address] | [place] [address] | | + + + + + D-dimer, quantitative (12/07/2018 3:30 PM) + + + + + | Component | Value | Ref Range | Performed At | + + + + + | D DIMER, | 0.34Comment: Testing | 0.19 - 0.50 mg/L FEU | [facility] | | QUANTITATIVE | performed at [facility];[address];[place] | | | | | [address] | | | + + + + + + + | Specimen | + + | Blood | + + + + + + + | Performing | Address | City/State/Zipcode | Phone Number | | Organization | | | | + + + + + | [facility] | [address] | [place] [address] | | + + + + + Lipase (12/07/2018 3:30 PM) + + + + + | Component | Value | Ref Range | Performed At | + + + + + | LIPASE | 51Comment: NOTE NEW | 12 - 53 U/L | [facility] | | | REFERENCE RANGETesting | | | | | performed at [facility];[address] | | | | | [address];[place] | | | | | [address] | | | + + + + + + + | Specimen | + + | Blood | + + + + + + + | Performing | Address | City/State/Zipcode | Phone Number | | Organization | | | | + + + + + | [facility] | [address] | [place] [address] | | + + + + + C-reactive protein (12/07/2018 3:30 PM) + + + + + | Component | Value | Ref Range | Performed At | + + + + + | CRP | 2.5 (H)Comment: Testing | <0.5 mg/dL | [facility] | | | performed at [facility];[address];[place] | | | | | [address] | | | + + + + + + + | Specimen | + + | Blood | + + + + + + + | Performing | Address | City/State/Zipcode | Phone Number | | Organization | | | | + + + + + | [facility] | [address] | [place] [address] | | + + + + + Troponin I (12/07/2018 3:30 PM) + + + + + | Component | Value | Ref Range | Performed At | + + + + + | TROPONIN I | 0.026Comment: Testing | 0.00 - 0.04 ng/mL | [facility] | | | performed at [facility];[address] | | | | | [address];[place], [place] | | | | | [id number] ON 12/25 | | | | | [...] | + + + + + | [facility] | [address] | [place] [address] | | + + + + + [...] 45.1 | 37 - 53 fl | [facility] | + + + + + | PLT | 484 (H) | 150 - 400 K/uL | [facility] | + + + + + | MPV | 8.0 | fl | [facility] | + + + + + | DIFF TYPE | MANUAL | | [facility] | + + + + + | Neutrophils Manual | 78 | % | [facility] | + + + + + [...] | 1.3 | 1.0 - 2.4 | [facility] | + + + + + | TBIL | 0.2 | 0.1 - 1.5 mg/dL | [facility] | + + + + + | ALK PHOS | 126 (H) | 35 - 115 U/L | [facility] | + + + + + | AST | 15 | 10 - 45 U/L | [facility] | + + + + + | ALT | 11 | 10 - 65 U/L | [facility] | + + + + + | EGFR | 3 (L)Comment: GFR <60: | >60 mL/min/1.73m2 | [facility] | | | CHRONIC [...] 146 | 30 - 240 U/L | [facility] | + + + + + | INR | 0.9Comment: REFERENCE | | [facility] | | | RANGE:0.9 - [...] 28 | 23 - 32 seconds | [facility] | + + + + + | MMB | 1.7 | 0.5 - 3.6 ng/mL | [facility] | + + + + + | CK-MB Index | 1.2Comment: CK INDEX | | [facility] | | | INTERPRETATION: | [...] at [facility];[address] | | | | | [address];[place] | | | | | [address] | | | + + + + + + + + + + | Performing | Address | City/State/Zipcode | Phone Number | | Organization | | | | + + + + + | [facility] | [address] | [place] [address] | | + + + + + [...] | | | | | dose on [facility] 12/10/18 at 0900, | | PST [...]
--- OUTSIDE RECORDS SUMMARY | ~2019-01-28 | XMS | Encounter Summary ---
Demographics + + + | Address | [address] | | | [place] [address] | + + + | Home Phone | | + + + | Preferred Language | Unknown | + + + | Marital Status | | + + + | Quaker Affiliation | Unknown | + + + | Race | Unknown | + + + | Ethnic Group | Unknown | + + + Author + + + | Author | [facility] | + + + | Organization | [facility] | + + + | Address | Unknown | + + + | Phone | Unavailable | + + + Support + + + + + | Name | Relationship | Address | Phone | + + + + + | Lyubov Smalls | MASHA | [place] | | | | | [address] | | + + + + + | Lydia Palm | ECON | [place] | | | | | [address] | | + + + + + | Tyler Oconnor | ECON | [address] | | | | | [place] | | | | | [address] | | + + + + + Care Team Providers + +------+ + | Care Beer Cooler Name | Role | Phone | + [...] | | | | Diagnoses | | [facility] 3rd | | | | | peritonitis | | Floor [address] | | | | | | | Pavilion | | | | | | | [address] | | | | | | | [address] | | | | | | | [place], [place] | | | | | | | [address] Phone: | | | | | | | [phone] | | | | | | | Fax: | | | | | | | [phone] | +--------+--------+ + + + + Encounter Details +--------+ + + + + | Date | Type | Department | Care Team | Description | +--------+ + + + + | 12/24/ | Hospital | [facility] | Espinoza, | Abdominal pain, | | 2019 - | Encounter | Medical Cntr 3rd | MD [address] | unspecified | | | | Floor [address] | [address] | abdominal location; | | 12/27/ | | Pavilion [address] | [place] [address] | End-stage renal | | 2019 | | Blvd [place], [place] | [phone] | disease on | | | | [address] | | peritoneal dialysis | | | | | Hilda Edwards DO | ([facility]); Anemia in | | | | | [address] | ESRD (end-stage | | | | | [place] [address] | renal disease) | | | | | [phone] | ([facility]); | | | | | [...] PD associated peritonitis. She was transferred from [place] [facility] ED at [facility] CT abd was performed, imaging did not [...] Information: Follow [place]: [place] [address] [place] [address] Medication List CONTINUE taking these medications ALPRAZolam 0.5 MG tablet Refills: 0 Commonly known as: XANAX amLODIPine 2.5 MG tablet Refills: 0 Commonly known as: NORVASC cefdinir 300 MG capsule QTY: 9 capsule Refills: 0 Commonly known as: OMNICEF Take 1 capsule by mouth daily. clonazePAM 0.5 MG tablet Refills: 0 Commonly known as: KlonoPIN ergocalciferol 64755 units capsule Refills: 0 Commonly known as: [...] in the next 24 hours. Call 911 [id number] if any of these occur: Trouble breathing [...] and are getting dehydrated Date Last Reviewed: 11/08/201519996300-6379 [employer]. [address] [place] [address], [place] [address]. All righ ts reserved. This information is [...] bottled water for sodium content. Don't take ifix-vyk-lgeajdk medicines that contain sodium bicarbonate or sodium [...] about dialysis. 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 Follow-up care Follow up with your healthcare provider, or as advised. When to call your healthcare provider Call your healthcare provider right away if you have any of the following: Chest pain (call 911) Trouble eating or drinking Weight loss of more cqhl1jbsffw co25hvrig or more jztz6vxauhb in7 days Little or no urine output Trouble breathing Muscle aches Kdxlcho615.4F (38C) or higher, or as advised by your healthcare provider Blood in your urine or stool Bloody discharge from your nose, mouth, or ears Severe headache or a seizure Vomiting Swelling of legs or ankles Date Last Reviewed: 12/11/201619994853-9679 [employer]. [address] [place] [address], [place] [address]. All righ ts reserved. This information is [...] | | | | | | (DRISDOL) [address] | mouth once a week. | | [...] 3 | 03/09/20 | | | SA (K-HOLLY BO) | mouth daily. | tablet | | [...] note may be different from the original. [facility] Service: Infectious Disease Progress Note Hospital Day: [...] OR acetaminophen, ALPRAZolam, HYDROcodone-acetaminophen, HYDROmorphone OR HYDROmorphone, xtbwgrsqy-surmtj-sokvwzcopu, ondansetron OR ondansetron, polyethylen e glycol, simethicone, [...] Full Code TYLER KAYE DO 12/27/2018Minerva Cruz, [facility] - 12/27/2018 7:09 AM PSTClinical Pharmacy Note: Vancomycin Day 3 Vanco random level today 20.5 mcg/mL; higher than goal 15 to 20 mcg/mL. No dose today. Next vanco trough due tomorrow with AM labs. Minerva Cruz, Pharmacist 12/27/2018 7:06 AM Hilda Edwards, DO - 12/26/2018 4:41 PM PSTFormatting of this note may be different fro m the original. [facility] Service: Hospitalist Progress Note Hospital [...] OR acetaminophen, ALPRAZolam, HYDROcodone-acetaminophen, HYDROmorphone OR HYDROmorphone, ivalkwoca-cikdka-reidbniuxf, ondansetron OR ondansetron, polyethylen e glycol, simethicone, [...] may be diffe rent from the original. [facility] Service: Hospitalist Progress Note Hospital [...] OR acetaminophen, ALPRAZolam, HYDROcodone-acetaminophen, HYDROmorphone OR HYDROmorphone, lhjgaowhd-xeiash-oyjlhhdofx, ondansetron OR ondansetron, polyethylen e glycol, zolpidem [...] HYDROcodone-acetaminophen, HYDROmorphone OR | | | HYDROmorphone, iqkyrdwaj-jcyqqf-mnofvxdzlc, ondansetron OR | | | ondansetron, polyethylene [...] | | last 3 completed shifts: In: 60173 [P.O.:250; Other:30250] Out: | | | 73450 [Emesis/NG output:200; Other:50101] Assessment: Ms. Oconnor | | | is [...] | | | | | performed at [facility], [facility] [address] | | | | | [facility], | | | | | [place] [address] | | | + + + + + + + | Specimen | + + | Blood | + + + + + + + | Performing | Address | City/State/Zipcode | Phone Number | | Organization | | | | + + + + + | [facility] | [address] | [place] [address] | [phone] | | LABORATORY | [address]vd[address] | | [...] | [facility] | | | performed at [facility], [address] | | LABORATORY | | | [address], | | | | | [place] [address] | | | + + + + + + + + + + | Performing | Address | City/State/Zipcode | Phone Number | | Organization | | | | + + + + + | [facility] | [address] | [place] [address] | [phone] | | LABORATORY | [address] | | | + + + + + Vancomycin, random (12/27/2018 5:44 AM) + + + + + | Component | Value | Ref Range | Performed At | + + + + + | VANCOMYCIN,RANDOM | 20.5Comment: Testing | ug/mL | [facility] | | | performed at [facility];[address] | | | | [address];[place], [place] | | | | | [address] | | | + + + + + + + | Specimen | + + | Blood | + + + + + + + | Performing | Address | City/State/Zipcode | Phone Number | | Organization | | | | + + + + + | [facility] | [address] | [place] [address] | | + + + + + [...] HYDROcodone-acetaminophen, HYDROmorphone OR | | | HYDROmorphone, fohotmtep-eufbsx-amnhwrxqaf, ondansetron OR | | | ondansetron, polyethylene [...] (H) | 3.80 - 11.00 K/uL | [facility] | + + + + + | RBC | 3.68 (L) | 3.70 - 5.10 M/uL | [facility] | + + + + + | HGB | 10.9 (L) | 11.3 - 15.5 g/dL | [facility] | + + + + + [...] (H) | 150 - 400 K/uL | [facility] | + + + + + | MPV | 7.7 | fl | [facility] | + + + + + | DIFF TYPE | AUTOMATED | | [facility] | + + + + + | NEUTROPHILS | 82.96 | % | [facility] | + + + + + | LYMPHOCYTES | 9.80 | % | [facility] | + + + + + [...] Testing | 0.00 - 0.10 K/uL | [facility] | | | performed at [facility];[address] | | | | | [address];[place], [place] | | | | | [address] | | | + + + + + + + | Specimen | + + | Blood | + + + + + + + | Performing | Address | City/State/Zipcode | Phone Number | | Organization | | | | + + + + + | [facility] | [address] | [place] [address] | | + + + + + [...] + + + + | Calculated P Beacon | 3 | degrees | [facility] | + + + + + | Calculated R Beacon | 35 | degrees | [facility] | + + + + + | Calculated T Beacon | 134 | degrees | [facility] [...] + + + + + | [facility] | [address] | [facility] [address] | | + + + + + Renal function panel (12/26/2018 5:38 AM) + + + + + | Component | Value | Ref Range | Performed At | + + + + + | SODIUM | 141 | 135 - 145 mmol/L | [facility] | + + + + [...] (L)Comment: GFR <60: | >60 mL/min/1.73m2 | [facility] | | | CHRONIC KIDNEY [...] | | | | performed at [facility];[address] | | | | | [address];[place], [place] | | | | | [address] | | | + + + + + + + | Specimen | + + | Blood | + + + + + + + | Performing | Address | City/State/Zipcode | Phone Number | | Organization | | | | + + + + + | [facility] | [address] | [place] [address] | | + + + + + Vancomycin, random (12/26/2018 5:38 AM) + + + + + | Component | Value | Ref Range | Performed At | + + + + + | VANCOMYCIN,RANDOM | 22.7Comment: Testing | ug/mL | [facility] | | | performed at [facility];[address] | | | | | [address];[place], [place] | | | | | [address] | | | + + + + + + + | Specimen | + + | Blood | + + + + + + + | Performing | Address | City/State/Zipcode | Phone Number | | Organization | | | | + + + + + | [facility] | [address] | [place] [address] | | + + + + + Body fluid cell count (12/25/2018 2:50 AM) + + + + + | Component | Value | Ref Range | Performed At | + + + + + | FLUID TYPE | PERITONEAL | | [facility] | + + + + + | COLOR | COLORLESS | | [facility] | + + + + + | APPEARANCE | CLEAR | | [facility] | + + + + + | RBC'S | <56229 | /mm3 | [facility] | + [...] | MONOCYTES/MACROPHAGE | 3 | % | [facility] | | S | | | | + + + + + | CELLS COUNTED | 100Comment: Testing | | [facility] | | | performed at [facility];[address] | | | | | [address];[place] | | | | | [address] | | | + + + + + + + | Specimen | + + | Other - Peritoneal | | [place] | + + + + + + + | Performing | Address | City/State/Zipcode | Phone Number | | Organization | | | | + + + + + | [facility] | [address] | [place] [address] | | + + + + + [...] + + + | [facility] | [address] | [place] [address] | [phone] | | LABORATORY | [address]vd[address] | | [...] | + + + + + | [facility] | [address] | [place] [address] | [phone] | | LABORATORY | Any. | | | + + + + + | [facility] | [address] | [place] [address] | | + + + + + [...] (L)Comment: GFR <60: | >60 mL/min/1.73m2 | [facility] | | | CHRONIC KIDNEY [...] the | | | | | MDRD IDOH traceable | | | | | equation.Testing | | | | | performed at [facility], [address] | | | | | [facility], | | | | | [place] [address] | | | + + + + + + + | Specimen | + + | Blood | + + + + + + + | Performing | Address | City/State/Zipcode | Phone Number | | Organization | | | | + + + + + | [facility] | [address] | [place] [address] | [phone] | | LABORATORY | [address] | | | + + + + + Magnesium (12/25/2018 2:08 AM) + + + + + | Component | Value | Ref Range | Performed At | + + + + + | MAGNESIUM | 3.0 (H)Comment: Testing | 1.7 - 2.4 mg/dL | [facility] | | | performed at [facility], [address] | | LABORATORY | | | [facility], | | | | | [place] [address] | | | + + + + + + + | Specimen | + + | Blood | + + + + + + + | Performing | Address | City/State/Zipcode | Phone Number | | Organization | | | | + + + + + | [facility] | [address] | [place] [address] | [phone] | | LABORATORY | [address] | | [...] performed at | | | | | [facility], [address] | | | | | [place] | | | | | [address] | | | + + + + + + + | Specimen | + + | Blood | + + + + + + + | Performing | Address | City/State/Zipcode | Phone Number | | Organization | | | | + + + + + | [facility] | [address] | [place] [address] | [phone] | | LABORATORY | [address]vd[address] | | [...] + + + | [facility] | [address] | [place] [address] | [phone] | | LABORATORY | [address]vd[address] | | | + + + + + | [facility] | [address] | [facility] [address] | | + + + + + MRSA by PCR (12/25/2018 1:29 AM) + + + + + | Component | Value | Ref Range | Performed At | + + + + + | SOURCE | NARES(NOSE) | | [facility] | + + + + + | MRSA PCR | NEGATIVEComment: Testing | NEGATIVE | [facility] | | | performed at [facility];[address] | | | [address];[place] | | | | | [address] | | | + + + + + + + | Specimen | + + | Nasopharyngeal - | | Nares(Nose) | + + + + + + + | Performing | Address | City/State/Zipcode | Phone Number | | Organization | | | | + + + + + | [facility] | [address] | [place] [address] | | + + + + + [...] +---+ | | | + +---+ | xmmzsfswh-vmwzdn-zdwpowxsus | | | ([facility]) suspension [...]
--- OUTSIDE RECORDS SUMMARY | ~2019-01-28 | XMS | Encounter Summary ---
Demographics + + + | Address | [address] | | | [place] [address] | + + + | Home Phone | | + + + | Preferred Language | Unknown | + + + | Marital Status | | + + + | Restorationist Affiliation | Unknown | + + + | Race | Unknown | + + + | Ethnic Group | Unknown | + + + Author + + + | Author | [facility] [employer] | + + + | Organization | [email or web address] | + + + | Address | Unknown | + + + | Phone | Unavailable | + + + Support + + + + + | Name | Relationship | Address | Phone | + + + + + | Lyubov Smalls | MASHA | [place] | | | | | [address] | | + + + + + | Lydia Palm | ECON | [place] | | | | | [address] | | + + + + + | Tyler Oconnor | ECON | [address] | | | | | [place] | | | | | [address] | | + + + + + Care Team Providers + +------+ + | Care Support Associate Name | Role | Phone | [...] | | | | Diagnoses | | [facility] | | | | | peritonitis | | Floor [address] | | | | | | | Pavilion | | | | | | | [address] | | | | | | | [address] | | | | | | | [place], [place] | | | | | | | [address] Phone: | | | | | | | [phone] | | | | | | | Fax: | | | | | | | [phone] | +--------+--------+ + + + + Encounter Details +--------+ + + + + | Date | Type | Department | Care Team | Description | +--------+ + + + + | 12/24/ | Hospital | [facility] | Espinoza, | Abdominal pain, | | 2019 - | Encounter | [facility] | MD Jose [address] | unspecified | | | | Floor [address] | [address] | abdominal location; | | 12/27/ | | Pavilion [address] | [place] [address] | End-stage renal | | 2019 | | Blvd [place], [place] | [phone] | disease on | | | | [address] | | peritoneal dialysis | | | | | Hilda Edwards DO | ([facility]); Anemia in | | | | | [address] | ESRD (end-stage | | | | | [place] [address] | renal disease) | | | | | [phone] | ([facility]); | | | | | | [...] PD associated peritonitis. [facility] [place] [facility] at [facility] CT abd was performed, imaging did [...] Information: [place]: [place] [address] [place] [address] Medication List CONTINUE taking these medications ALPRAZolam 0.5 MG tablet Refills: 0 Commonly known as: XANAX amLODIPine 2.5 MG tablet Refills: 0 Commonly known as: NORVASC cefdinir 300 MG capsule QTY: 9 capsule Refills: 0 Commonly known as: OMNICEF Take 1 capsule by mouth daily. clonazePAM 0.5 MG tablet Refills: 0 Commonly known as: KlonoPIN ergocalciferol 42201 units capsule Refills: 0 Commonly known as: [...] in the next 24 hours. Call 911 [id number] if any of these occur: Trouble breathing [...] and are getting dehydrated Date Last Reviewed: 11/08/201519996901-1549 [employer]. [address] [place] [address], [place] [address]. All righ ts reserved. This information is [...] bottled water for sodium content. Don't take hvdl-dwj-nxbzjrt medicines that contain sodium bicarbonate or sodium [...] about dialysis. 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 Follow-up care Follow up with your healthcare provider, or as advised. When to call your healthcare provider Call your healthcare provider right away if you have any of the following: Chest pain (call 911) Trouble eating or drinking Weight loss of more jimc6ozugau vd88wnmvb or more qtqs0vgbuca in7 days Little or no urine output Trouble breathing Muscle aches Ihtlesp949.4F (38C) or higher, or as advised by your healthcare provider Blood in your urine or stool Bloody discharge from your nose, mouth, or ears Severe headache or a seizure Vomiting Swelling of legs or ankles Date Last Reviewed: 12/11/201619993953-1821 [employer]. [address] [place] [address], [place] [address]. All righ ts reserved. This information is [...] | | | | | | (DRISDOL) [address] | mouth once a week. | | [...] note may be different from the original. [facility] Service: Infectious Disease Progress Note [...] OR acetaminophen, ALPRAZolam, HYDROcodone-acetaminophen, HYDROmorphone OR HYDROmorphone, zvlaescpu-ksbdpn-qesazbffii, ondansetron OR ondansetron, polyethylen e glycol, simethicone, [...] Full Code TYLER KAYE DO 12/27/2018Minerva Cruz, [facility] - 12/27/2018 7:09 AM PSTClinical Pharmacy Note: Vancomycin Day 3 Vanco random level today 20.5 mcg/mL; higher than goal 15 to 20 mcg/mL. No dose today. Next vanco trough due tomorrow with AM labs. Minerva Cruz, Pharmacist 12/27/2018 7:06 AM Hilda Edwards, DO - 12/26/2018 4:41 PM PSTFormatting of this note may be different fro m the original. [facility] Service: Hospitalist Progress Note Hospital [...] OR acetaminophen, ALPRAZolam, HYDROcodone-acetaminophen, HYDROmorphone OR HYDROmorphone, alipdezov-bguzpz-ccpvzkrppz, ondansetron OR ondansetron, polyethylen e glycol, simethicone, [...] may be diffe rent from the original. [facility] Service: Hospitalist Progress Note Hospital [...] OR acetaminophen, ALPRAZolam, HYDROcodone-acetaminophen, HYDROmorphone OR HYDROmorphone, xqbcoxmea-jbjdrr-xptatztpme, ondansetron OR ondansetron, polyethylen e glycol, zolpidem [...] HYDROcodone-acetaminophen, HYDROmorphone OR | | | HYDROmorphone, dzairqdvc-ytbzny-iiulkwznev, ondansetron OR | | | ondansetron, polyethylene [...] | | last 3 completed shifts: In: 82231 [P.O.:250; Other:95602] Out: | | | 91818 [Emesis/NG output:200; Other:68250] Assessment: Ms. Oconnor | | | is [...] | | | | | performed at [facility], [facility] | | | | | [facility], | | | | | [place] [address] | | | + + + + + + + | Specimen | + + | Blood | + + + + + + + | Performing | Address | City/State/Zipcode | Phone Number | | Organization | | | | + + + + + | [facility] | [address] | [place] [address] | [phone] | | LABORATORY | Blvd[address] | | [...] | [facility] | | | performed at [facility], [address] | | LABORATORY | | | [address], | | | | | [place] [address] | | | + + + + + + + + + + | Performing | Address | City/State/Zipcode | Phone Number | | Organization | | | | + + + + + | [facility] | [address] | [place] [address] | [phone] | | LABORATORY | [address] | | | + + + + + Vancomycin, random (12/27/2018 5:44 AM) + + + + + | Component | Value | Ref Range | Performed At | + + + + + | VANCOMYCIN,RANDOM | 20.5Comment: Testing | ug/mL | [facility] | | | performed at [facility];[address] | | | | [address];[place], [place] | | | | | [address] | | | + + + + + + + | Specimen | + + | Blood | + + + + + + + | Performing | Address | City/State/Zipcode | Phone Number | | Organization | | | | + + + + + | [facility] | [address] | [place] [address] | | + + + + + [...] HYDROcodone-acetaminophen, HYDROmorphone OR | | | HYDROmorphone, cphrovnxp-wqodue-rfhhthqpfz, ondansetron OR | | | ondansetron, polyethylene [...] (H) | 3.80 - 11.00 K/uL | [facility] | + + + + + | RBC | 3.68 (L) | 3.70 - 5.10 M/uL | [facility] | + + + + + | HGB | 10.9 (L) | 11.3 - 15.5 g/dL | [facility] | + + + + + [...] (H) | 150 - 400 K/uL | [facility] | + + + + + | MPV | 7.7 | fl | [facility] | + + + + + | DIFF TYPE | AUTOMATED | | [facility] | + + + + + | NEUTROPHILS | 82.96 | % | [facility] | + + + + + | LYMPHOCYTES | 9.80 | % | [facility] | + + + + + [...] | 0.00 - 0.10 K/uL | [facility] | | | performed at [facility];[address] | | | | | [address];[place], [place] | | | | | [address] | | | + + + + + + + | Specimen | + + | Blood | + + + + + + + | Performing | Address | City/State/Zipcode | Phone Number | | Organization | | | | + + + + + | [facility] | [address] | [place] [address] | | + + + + + [...] + + + + | Calculated P Crosby | 3 | degrees | [facility] | + + + + + | Calculated R Crosby | 35 | degrees | [facility] | + + + + + | Calculated T Crosby | 134 | degrees | [facility] [...] + + | [facility] | [address] | [facility] [address] | | + + + + + Renal function panel (12/26/2018 5:38 AM) + + + + + | Component | Value | Ref Range | Performed At | + + + + + | SODIUM | 141 | 135 - 145 mmol/L | [facility] | + + + [...] GFR <60: | >60 mL/min/1.73m2 | [facility] | | | CHRONIC [...] the | | | | | MDRD [facility] traceable | | | | | equation.Testing | | | | | performed at [facility];[address] | | | | | [address];[place], [place] | | | | | [address] | | | + + + + + + + | Specimen | + + | Blood | + + + + + + + | Performing | Address | City/State/Zipcode | Phone Number | | Organization | | | | + + + + + | [facility] | [address] | [place] [address] | | + + + + + Vancomycin, random (12/26/2018 5:38 AM) + + + + + | Component | Value | Ref Range | Performed At | + + + + + | VANCOMYCIN,RANDOM | 22.7Comment: Testing | ug/mL | [facility] | | | performed at [facility];[address] | | | | | [address];[place], [place] | | | | | [address] | | | + + + + + + + | Specimen | + + | Blood | + + + + + + + | Performing | Address | City/State/Zipcode | Phone Number | | Organization | | | | + + + + + | [facility] | [address] | [place] [address] | | + + + + + Body fluid cell count (12/25/2018 2:50 AM) + + + + + | Component | Value | Ref Range | Performed At | + + + + + | FLUID TYPE | PERITONEAL | | [facility] | + + + + + | COLOR | COLORLESS | | [facility] | + + + + + | APPEARANCE | CLEAR | | [facility] | + + + + + | RBC'S | <08364 | /mm3 | [facility] | + [...] MONOCYTES/MACROPHAGE | 3 | % | [facility] | | S | | | | + + + + + | CELLS COUNTED | 100Comment: Testing | | [facility] | | | performed at [facility];[address] | | | | | [address];[place] | | | | | [address] | | | + + + + + + + | Specimen | + + | Other - Peritoneal | | [place] | + + + + + + + | Performing | Address | City/State/Zipcode | Phone Number | | Organization | | | | + + + + + | [facility] | [address] | [place] [address] | | + + + + + [...] + + + | [facility] | [address] | [place] [address] | [phone] | | LABORATORY | [address]vd[address] | | [...] + + + | [facility] | [address] | [place] [address] | [phone] | | LABORATORY | Any. | | | + + + + + | [facility] | [address] | [place] [address] | | + + + + + [...] (L)Comment: GFR <60: | >60 mL/min/1.73m2 | [facility] | | | CHRONIC KIDNEY [...] | | | | | performed at [facility], [address] | | | | | [facility], | | | | | [place] [address] | | | + + + + + + + | Specimen | + + | Blood | + + + + + + + | Performing | Address | City/State/Zipcode | Phone Number | | Organization | | | | + + + + + | [facility] | [address] | [place] [address] | [phone] | | LABORATORY | [address]vd[address] | | | + + + + + Magnesium (12/25/2018 2:08 AM) + + + + + | Component | Value | Ref Range | Performed At | + + + + + | MAGNESIUM | 3.0 (H)Comment: Testing | 1.7 - 2.4 mg/dL | [facility] | | | performed at [facility], [address] | | LABORATORY | | | [facility], | | | | | [place] [address] | | | + + + + + + + | Specimen | + + | Blood | + + + + + + + | Performing | Address | City/State/Zipcode | Phone Number | | Organization | | | | + + + + + | [facility] | [address] | [place] [address] | [phone] | | LABORATORY | [address] | | [...] performed at | | | | | [facility], [address] | | | | | [place] | | | | | [address] | | | + + + + + + + | Specimen | + + | Blood | + + + + + + + | Performing | Address | City/State/Zipcode | Phone Number | | Organization | | | | + + + + + | [facility] | [address] | [place] [address] | [phone] | | LABORATORY | [address]vd[address] | | [...] + + + | [facility] | [address] | [place] [address] | [phone] | | LABORATORY | [address]vd[address] | | | + + + + + | [facility] | [address] | [facility] [place] [address] | | + + + + + MRSA by PCR (12/25/2018 1:29 AM) + + + + + | Component | Value | Ref Range | Performed At | + + + + + | SOURCE | NARES(NOSE) | | [facility] | + + + + + | MRSA PCR | NEGATIVEComment: Testing | NEGATIVE | [facility] | | | performed at [facility];[address] | | | | [address];[place] | | | | | [address] | | | + + + + + + + | Specimen | + + | Nasopharyngeal - | | Nares(Nose) | + + + + + + + | Performing | Address | City/State/Zipcode | Phone Number | | Organization | | | | + + + + + | [facility] | [address] | [place] [address] | | + + + + + [...] +---+ | | | + +---+ | deacqvujx-vhamyz-vvaokzilrl | | | ([facility]) suspension [...]
--- OUTSIDE RECORDS SUMMARY | ~2019-01-28 | XMS | Encounter Summary ---
Demographics + + + | Address | [address] | | | [place] [address] | + + + | Home Phone [...] | Author | [facility] [employer] | + + + | Organization | [facility] [employer] | + + + | Address | Unknown | + + + | Phone | Unavailable | + + + Support + + + + + | Name | Relationship | Address | Phone | + + + + + | Lyubov Smalls | MASHA | [place] | | | | | [address] | | + + + + + | Lydia Palm | ECON | [place] | | | | | [address] | | + + + + + | Jose C Oconnor | ECON | [address] | | | | | [place] | | | | | [address] | | + + + + + Care Team Providers + +------+ + | Care Cell Pourer Name | Role | Phone | + [...] | | General | Diagnoses | | [facility] | | | | Surgery | Hypokalemia | | Surgical [address] | | | | | [address] | | | | | Diverticulit | | [place], [place] | | | | | is ESRD on | | [address] Phone: | | | | | peritoneal | | [phone] | | | | | dialysis | | Fax: | | | | | ([facility]) | | [phone] | +--------+--------+ + + + + Encounter Details +--------+ + + + + | Date | Type | Department | Care Team | Description | +--------+ + + + + | 01/05/ | Hospital | [facility] | [place], | Diverticulitis | | 2019 - | Encounter | [facility] | [address] | (Primary Dx); | | | | Surgical [address] | [place] [address] | Hypokalemia; ESRD on | | 01/09/ | | Blvd [place], [place] | [phone] | peritoneal dialysis | | 2018 | | [address] | | (HCC); End-stage | | | | | Salvador Ruiz MD | renal disease on | | | | | [address] | peritoneal dialysis | | | | | [place] [address] | (HCC) | | | | | [phone] | | | | | | | | | | | | Chris Smart MD | | | | | | [address] | | | | | | [place] [address] | | | | | | [phone] | | | | | | | [...] of this note may be different from ivctor manuel mckeon. [facility] Service: Hospitalist Physician Discharge Summary Pt: Ramona [...] Refills: 0 Commonly known as: NORVASC ergocalciferol 64966 units capsule Refills: 0 Commonly known as: [...] if needed. Follow-[place]: [place] [address] [place] [address] In 1 week Santos Chi MD [address] [place] [address] In 1 week Discharge took more than 35 minutes, to include final examination, discussion of admission, and preparation of prescriptions, instructions for ongoing care, follow up and dictation of summary. Signed: CHRIS SMART MD 01/09/2019 10:14 AM Dictation software, Pawngo, used which may contain error for similar [...] color) Unexpected vaginal bleeding Date Last Reviewed: 07/11/201619993367-7327 [employer]. [address] [place] [address]. All righ ts reserved. This information is [...] | | | | | | (DRISDOL) [address] | mouth once a week. | | [...] note may be different from the original. [facility] Service: NEPHROLOGY PD/ Progress Note Ramona Oconnor 38 y.o. [id number] 431/431-1 female [facility] Day: LOS: 4 days Patient with PMH [...] 10/25/15 showed normal sized kidneys. 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 Primary delivery of shopping news GERD (gastroesophageal reflux disease) Hypercalcemia 09/07/2017 Hyperphosphatemia 10/28/2015 Hypocalcemia 10/28/2015 Hypokalemia 06/04/2017 Itching 10/28/2015 Metabolic acidosis 10/28/2015 Obesity Peritonitis associated with peritoneal dialysis (HCC) 01/24/2017 Peritonitis due to infected peritoneal dialysis catheter (HCC) 12/08/2018 Secondary hyperparathyroidism (HCC) Uremia 10/28/2015 Past Surgical History Procedure Laterality Date ESOPHAGOGASTRODUODENOSCOPY N/A 09/10/2017 Procedure: ESOPHAGOGASTRODUODENOSCOPY; Surgeon: Beena Peters MD; Location: [facility]; Service: Gastroenterology; Laterality: N/A; PERITONEAL CATHETER INSERTION N/A 10/28/2015 Procedure: LAPAROSCOPIC - PERITONEAL DIALYSIS CATH INSERTION; Surgeon: Mundo Ramos MD; Lo cation: [facility]; Service: Vascular; Laterality: [...] Table: I/O last 3 completed shifts: In: 54703 [P.O.:1250; I.V.:1154; Other:9969] Out: 65784 [Other:43695] Weight change: -0.6 kg (-1 lb 5.2 [...] earlier and charting completed later Dictation software, Pawngo, used which may contain error for similar sounding words even af ter review. Personal communication requested for any clarification. Portions of my notes may have been carried over for continuity of care. Linden Monte MD - 01/08/2019 4:59 PM PSTFormatting of this note may be different from the original. [facility] Service: NEPHROLOGY PD/ Progress Note Ramona Haresh Oconnor 38 y.o. [id number] 431/431-1 female [facility] Day: [...] 10/25/15 showed normal sized kidneys. 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 Primary delivery of shopping news GERD (gastroesophageal reflux disease) Hypercalcemia 09/07/2017 Hyperphosphatemia 10/28/2015 Hypocalcemia 10/28/2015 Hypokalemia 06/04/2017 Itching 10/28/2015 Metabolic acidosis 10/28/2015 Obesity Peritonitis associated with peritoneal dialysis (HCC) 01/24/2017 Peritonitis due to infected peritoneal dialysis catheter (HCC) 12/08/2018 Secondary hyperparathyroidism (HCC) Uremia 10/28/2015 Past Surgical History Procedure Laterality Date ESOPHAGOGASTRODUODENOSCOPY N/A 09/10/2017 Procedure: ESOPHAGOGASTRODUODENOSCOPY; Surgeon: Beena Peters MD; Location: [facility]; Service: Gastroenterology; Laterality: N/A; PERITONEAL CATHETER INSERTION N/A 10/28/2015 Procedure: LAPAROSCOPIC - PERITONEAL DIALYSIS CATH INSERTION; Surgeon: Mundo Ramos MD; Lo cation: [facility]; Service: Vascular; Laterality: [...] earlier and charting completed later Dictation software, Pawngo, used which may contain error for similar sounding words even af ter review. Personal communication requested for any clarification. Portions of my notes may have been carried over for continuity of care. Chris Smart MD - 01/08/2019 10:54 AM PSTFormatting of this note may be different from victor manuel mckeon. [facility] Service: Hospitalist Progress Note Pt: Ramona Oconnor AGE/SEX: 38 y.o. female ROOM: [address] [place] [address] : 1980 PCP: JUAN F WHITLEY ADMIT [...] 01/08/19 0650 Gross per 24 hour Intake 37710 ml Output 42900 ml Net 1092 ml Patient Vitals for [...] MD, FACP 01/08/2019 10:54 AM Dictation software, Pawngo, used which may contain error for similar sounding words even af ter review. Personal communication requested for any clarification. Portions of this chart may have been copied from previous notes for continuity of care purp Linden Gil MD - 01/07/2019 6:00 PM PSTFormatting of this note may be different from the original. [facility] Service: NEPHROLOGY PD/ Progress Note Ramona Hutson Elvin 38 y.o. [id number] 431/431-1 female [facility] Day: LOS: 2 days Patient with PMH [...] 10/25/15 showed normal sized kidneys. 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 Primary delivery of shopping news GERD (gastroesophageal reflux disease) Hypercalcemia 09/07/2017 Hyperphosphatemia 10/28/2015 Hypocalcemia 10/28/2015 Hypokalemia 06/04/2017 Itching 10/28/2015 Metabolic acidosis 10/28/2015 Obesity Peritonitis associated with peritoneal dialysis (HCC) 01/24/2017 Peritonitis due to infected peritoneal dialysis catheter (HCC) 12/08/2018 Secondary hyperparathyroidism (HCC) Uremia 10/28/2015 Past Surgical History Procedure Laterality Date ESOPHAGOGASTRODUODENOSCOPY N/A 09/10/2017 Procedure: ESOPHAGOGASTRODUODENOSCOPY; Surgeon: Beena Peters MD; Location: [facility]; Service: Gastroenterology; Laterality: N/A; PERITONEAL CATHETER INSERTION N/A 10/28/2015 Procedure: LAPAROSCOPIC - PERITONEAL DIALYSIS CATH INSERTION; Surgeon: Mundo Ramos MD; Lo cation: [facility]; Service: Vascular; Laterality: [...] Table: I/O last 3 completed shifts: In: 48153 [P.O.:3150; I.V.:1015; Other:32857] Out: 96517 [Other:70094] Weight change: Examination: Family at bedside APPEARANCE: [...] earlier and charting completed later Dictation software, Pawngo, used which may contain error for similar sounding words even af ter review. Personal communication requested for any clarification. Portions of my notes may have been carried over for continuity of care. Chris Smart MD - 01/07/2019 9:50 AM PSTFormatting of this note may be different from victor manuel mckeon. [facility] Service: Hospitalist Progress Note Pt: Ramona Oconnor AGE/SEX: 38 y.o. female ROOM: [facility]/431-1 : 1980 PCP: JUAN F WHITLEY ADMIT [...] 01/07/19 0645 Gross per 24 hour Intake 05606 ml Output 56641 ml Net 2724 ml Patient Vitals for [...] MD, FACP 01/07/2019 9:50 AM Dictation software, Pawngo, used which may contain error for similar sounding words even af ter review. Personal communication requested for any clarification. Portions of this chart may have been copied from previous notes for continuity of care purp Chris Hannon MD - 01/06/2019 12:07 PM PSTFormatting of this note may be different from victor manuel [place] original. [facility] Service: Hospitalist Progress Note Pt: Ramona Oconnor AGE/SEX: 38 y.o. female ROOM: [address] [place] [address] : 1980 PCP: JUAN F WHITLEY ADMIT [...] 01/06/19 0740 Gross per 24 hour Intake 58351 ml Output 90197 ml Net 425 ml Patient Vitals for [...] MD, FACP 01/06/2019 12:07 PM Dictation software, Pawngo, used which may contain error for similar sounding words even af ter review. Personal communication requested for any clarification. Portions of this chart may have been copied from previous notes for continuity of care purp Linden Gil MD - 01/06/2019 12:03 PM PSTFormatting of this note may be different from the original. [facility] Service: NEPHROLOGY PD/ Progress Note Ramona Oconnor 38 y.o. [id number] 431/431-1 female [facility] Hospital Day: LOS: 1 day Patient [...] 10/25/15 showed normal sized kidneys. 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 Primary delivery of shopping news GERD (gastroesophageal reflux disease) Hypercalcemia 09/07/2017 Hyperphosphatemia 10/28/2015 Hypocalcemia 10/28/2015 Hypokalemia 06/04/2017 Itching 10/28/2015 Metabolic acidosis 10/28/2015 Obesity Peritonitis associated with peritoneal dialysis (HCC) 01/24/2017 Peritonitis due to infected peritoneal dialysis catheter (HCC) 12/08/2018 Secondary hyperparathyroidism (HCC) Uremia 10/28/2015 Past Surgical History Procedure Laterality Date ESOPHAGOGASTRODUODENOSCOPY N/A 09/10/2017 Procedure: ESOPHAGOGASTRODUODENOSCOPY; Surgeon: Beena Peters MD; Location: [facility]; Service: Gastroenterology; Laterality: N/A; PERITONEAL CATHETER INSERTION N/A 10/28/2015 Procedure: LAPAROSCOPIC - PERITONEAL DIALYSIS CATH INSERTION; Surgeon: Mundo Ramos MD; Lo cation: [facility]; Service: Vascular; Laterality: [...] earlier and charting completed later Dictation software, Pawngo, used which may contain error for similar [...] | [facility] | | | performed at [facility], [address] | | LABORATORY | | | [facility], | | | | | [place] [address] | | | + + + + + + + | Specimen | + + | Blood | + + + + + + + | Performing | Address | City/State/Zipcode | Phone Number | | Organization | | | | + + + + + | [facility] | [address] | [place] [address] | [phone] | | LABORATORY | [address]vd[address] | | | + + + + + Basic metabolic panel (01/09/2019 5:46 AM) + + + + + | Component | Value | Ref Range | Performed At | + + + + + | SODIUM | 140 | 135 - 145 mmol/L | [facility] | | | | | LABORATORY | + + + + + | POTASSIUM | 4.2 | 3.5 - 4.9 mmol/L | [facility] | | | | | LABORATORY | [...] (H) | 0.50 - 1.00 mg/dL | [facility] | | | | | LABORATORY | + + + + + | BUN/CREAT | 2 | | [facility] | | | | | LABORATORY | + + + + + | CALCIUM | 7.1 (L) | 8.5 - 10.5 mg/dL | [facility] | | | | | LABORATORY | + + + + + | EGFR | 3 (L)Comment: GFR <60: | >60 mL/min/1.73m2 | [facility] | | | CHRONIC KIDNEY DISEASE, [...] | | | | | performed at [facility], [address] | | | | | [facility], | | | | | [place] [address] | | | + + + + + + + | Specimen | + + | Blood | + + + + + + + | Performing | Address | City/State/Zipcode | Phone Number | | Organization | | | | + + + + + | [facility] | [address] | [place] [address] | [phone] | | LABORATORY | Any. | | [...] | [facility] | | | performed at [facility], [address] | | LABORATORY | | | [place], | | | | | [place] [address] | | | + + + + + + + | Specimen | + + | Blood | + + + + + + + | Performing | Address | City/State/Zipcode | Phone Number | | Organization | | | | + + + + + | [facility] | [address] [facility] | [place] [address] | [phone] | | LABORATORY | Blvd. | | | + + + + + Magnesium (01/08/2019 5:26 AM) + + + + + | Component | Value | Ref Range | Performed At | + + + + + | MAGNESIUM | 2.0Comment: Testing | 1.7 - 2.4 mg/dL | [facility] | | | performed at [facility], [address] | | LABORATORY | | | [facility] [address], | | | | | [place] [address] | | | + + + + + + + | Specimen | + + | Blood | + + + + + + + | Performing | Address | City/State/Zipcode | Phone Number | | Organization | | | | + + + + + | [facility] | [address] [facility] | [place] [address] | [phone] | | LABORATORY | Blvd. | | [...] | | | | | performed at [facility], [address] | | | | | [facility], | | | | | [place] [address] | | | + + + + + + + | Specimen | + + | Blood | + + + + + + + | Performing | Address | City/State/Zipcode | Phone Number | | Organization | | | | + + + + + | [facility] | [address] [facility] | [place] [address] | [phone] | | LABORATORY | Blvd. | | [...] | [facility] | | | performed at [facility], [address] | | LABORATORY | | | [facility], | | | | | [place] [address] | | | + + + + + + + | Specimen | + + | Blood | + + + + + + + | Performing | Address | City/State/Zipcode | Phone Number | | Organization | | | | + + + + + | [facility] | [address] [facility] | [place] [address] | [phone] | | LABORATORY | Blvd. | | [...] (H)Comment: | 0.50 - 1.00 mg/dL | [facility] | | | SPECIMEN SLIGHTLY | | LABORATORY | | | HEMOLYZED | | | + + + + + | BUN/CREAT | 3 | | [facility] | | | | | LABORATORY | + + + + + | CALCIUM | 6.8 (L) | 8.5 - 10.5 mg/dL | [facility] | | | | | LABORATORY | + + + + + | EGFR | 3 (L)Comment: GFR <60: | >60 mL/min/1.73m2 | [facility] | | | CHRONIC KIDNEY DISEASE, [...] | | | | | performed at [facility], [address] | | | | | [facility], | | | | | [place] [address] | | | + + + + + + + | Specimen | + + | Blood | + + + + + + + | Performing | Address | City/State/Zipcode | Phone Number | | Organization | | | | + + + + + | [facility] | [address] [facility] | [place] [address] | [phone] | | LABORATORY | Any. | | | + + + + + Magnesium (01/07/2019 5:18 AM) + + + + + | Component | Value | Ref Range | Performed At | + + + + + | MAGNESIUM | 2.1Comment: Testing | 1.7 - 2.4 mg/dL | [facility] | | | performed at [facility], [address] | | LABORATORY | | | [facility], | | | | | [place] [address] | | | + + + + + + + | Specimen | + + | Blood | + + + + + + + | Performing | Address | City/State/Zipcode | Phone Number | | Organization | | | | + + + + + | [facility] | [address] [facility] | [place] [address] | [phone] | | LABORATORY | Blvd. | | [...] | | | | | performed at [facility], [address] | | | | | [facility], | | | | | [place] [address] | | | + + + + + + + | Specimen | + + | Blood | + + + + + + + | Performing | Address | City/State/Zipcode | Phone Number | | Organization | | | | + + + + + | [facility] | [address] [facility] | [place] [address] | [phone] | | LABORATORY | Any. | | [...] performed at | | | | | [facility], [address] [facility] | | | | | [place] | | | | | [address] | | | + + + + + + + | Specimen | + + | Blood | + + + + + + + | Performing | Address | City/State/Zipcode | Phone Number | | Organization | | | | + + + + + | [facility] | [address] [facility] | [place] [address] | [phone] | | LABORATORY | Blvd. | | | + + + + + PROCALCITONIN (01/06/2019 5:29 AM) + + + + + | Component | Value | Ref Range | Performed At | + + + + + | PROCALCITONIN | 0.82 (H)Comment: | <0.5 ng/mL | [facility] | | | INTERPRETIVE [...] performed | | | | | at [facility];[address] [place] [address] | | | | | [facility];[place] [address] | | | + + + + + + + + + + | Performing | Address | City/State/Zipcode | Phone Number | | Organization | | | | + + + + + | [facility] | [address] | [place] [address] | | + + + + + C-reactive protein (01/06/2019 5:29 AM) + + + + + | Component | Value | Ref Range | Performed At | + + + + + | CRP | 0.3Comment: Testing | <0.5 mg/dL | [facility] | | | performed at [facility], [address] | | LABORATORY | | | [address], | | | | | [place] [address] | | | + + + + + + + | Specimen | + + | Blood | + + + + + + + | Performing | Address | City/State/Zipcode | Phone Number | | Organization | | | | + + + + + | [facility] | [address] [place] [address] | [place] [address] | [phone] | | LABORATORY | [address]vd[address] | | | + + + + + Phosphorus (01/06/2019 5:29 AM) + + + + + | Component | Value | Ref Range | Performed At | + + + + + | PHOSPHORUS | 8.8 (H)Comment: Testing | 2.3 - 4.8 mg/dL | [facility] | | | performed at [facility], [address] | | LABORATORY | | | [facility], | | | | | [place] [address] | | | + + + + + + + | Specimen | + + | Blood | + + + + + + + | Performing | Address | City/State/Zipcode | Phone Number | | Organization | | | | + + + + + | [facility] | [address] [facility] | [place] [address] | [phone] | | LABORATORY | Blvd. | | [...] | | | | | performed at [facility], [address] | | | | | [facility], | | | | | [place] [address] | | | + + + + + + + | Specimen | + + | Blood | + + + + + + + | Performing | Address | City/State/Zipcode | Phone Number | | Organization | | | | + + + + + | [facility] | [address] [place] [address] | [place] [address] | [phone] | | LABORATORY | [address]vd[address] | | | + + + + + Magnesium (01/06/2019 5:29 AM) + + + + + | Component | Value | Ref Range | Performed At | + + + + + | MAGNESIUM | 2.3Comment: Testing | 1.7 - 2.4 mg/dL | [facility] | | | performed at [facility], [address] | | LABORATORY | | | [facility], | | | | | [place] [address] | | | + + + + + + + | Specimen | + + | Blood | + + + + + + + | Performing | Address | City/State/Zipcode | Phone Number | | Organization | | | | + + + + + | [facility] | [address] [facility] | [place] [address] | [phone] | | LABORATORY | Any. | | [...] | [facility] | | | performed at [facility], [address] | | LABORATORY | | | [address], | | | | | [place] [address] | | | + + + + + + + | Specimen | + + | Blood | + + + + + + + | Performing | Address | City/State/Zipcode | Phone Number | | Organization | | | | + + + + + | [facility] | [address] [facility] | [place] [address] | [phone] | | LABORATORY | Blvd. | | | + + + + + Troponin I (01/05/2019 11:47 AM) + + + + + | Component | Value | Ref Range | Performed At | + + + + + | TROPONIN I | 0.074 (H)Comment: 0.04 | 0.00 - 0.04 ng/mL | [facility] | | | ng/mL [...] performed | | | | | at [facility];[address] | | | | | [place] [address] | | | + + + + + + + | Specimen | + + | Blood | + + + + + + + | Performing | Address | City/State/Zipcode | Phone Number | | Organization | | | | + + + + + | [facility] | [address] | [place] [address] | | + + + + + [...] | [facility] | | | performed at [facility], [address] | | LABORATORY | | | [place] [address], | | | | | [place] [address] | | | + + + + + + + | Specimen | + + | Blood | + + + + + + + | Performing | Address | City/State/Zipcode | Phone Number | | Organization | | | | + + + + + | [facility] | [address] [facility] | [place] [address] | [phone] | | LABORATORY | Blvd. | | | + + + + + Troponin I (01/05/2019 5:42 AM) + + + + + | Component | Value | Ref Range | Performed At | + + + + + | TROPONIN I | 0.073 (H)Comment: 0.04 | 0.00 - 0.04 ng/mL | [facility] | | | ng/mL [...] performed | | | | | at [facility];[address] | | | | | vd;[place] [address] | | | + + + + + + + | Specimen | + + | Blood | + + + + + + + | Performing | Address | City/State/Zipcode | Phone Number | | Organization | | | | + + + + + | [facility] | [address] | [place] [address] | | + + + + + Abiel-TORIBIO (01/05/2019 5:42 AM) + + + + + | Component | Value | Ref Range | Performed At | + + + + + | INR | 1.1Comment: REFERENCE | | [facility] | | | RANGE:0.9 [...] [facility] [place];[address] | | | | [address] [facility];[place], [place] | | | | | [address] | | | + + + + + + + | Specimen | + + | Blood | + + + + + + + | Performing | Address | City/State/Zipcode | Phone Number | | Organization | | | | + + + + + | [facility] | [address] | [place] [address] | | + + + + + [...] [place], | | | | | [place] [address] | | | + + + + + + + | Specimen | + + | Blood | + + + + + + + | Performing | Address | City/State/Zipcode | Phone Number | | Organization | | | | + + + + + | [facility] | [address] [place] [address] | [place] [address] | [phone] | | LABORATORY | Blvd. | | | + + + + + Magnesium (01/05/2019 5:42 AM) + + + + + | Component | Value | Ref Range | Performed At | + + + + + | MAGNESIUM | 2.4Comment: Testing | 1.7 - 2.4 mg/dL | [facility] | | | performed at [facility], [address] | | LABORATORY | | | [facility], | | | | | [place] [address] | | | + + + + + + + | Specimen | + + | Blood | + + + + + + + | Performing | Address | City/State/Zipcode | Phone Number | | Organization | | | | + + + + + | [facility] | [address] [facility] | [place] [address] | [phone] | | LABORATORY | Blvd. | | [...] | | | | | performed at [facility], [address] | | | | | [facility], | | | | | [place] [address] | | | + + + + + + + | Specimen | + + | Blood | + + + + + + + | Performing | Address | City/State/Zipcode | Phone Number | | Organization | | | | + + + + + | [facility] | [address] [facility] | [place] [address] | [phone] | | LABORATORY | Blvd. | | [...] | [facility] | | | performed at [facility], [address] | | LABORATORY | | | [place], | | | | | [place] [address] | | | + + + + + + + | Specimen | + + | Blood | + + + + + + + | Performing | Address | City/State/Zipcode | Phone Number | | Organization | | | | + + + + + | [facility] | [address] [facility] | [place] [address] | [phone] | | LABORATORY | [address] | | [...] + + + + | Calculated P Cope | 27 | degrees | [facility] | + + + + + | Calculated R Cope | 79 | degrees | [facility] | + + + + + | Calculated T Cope | -142 | degrees | [facility] | + + + + + | Diagnosis | Normal sinus rhythm with | | [facility] | | | sinus [...] ONLY, -COMPUTER | | | | | ([phone]), digital editor Collin, | | | | | Rashel Mercado ([id number]) on | | | | | 01/05/2019 3:50:25 AM | | | + + + + + + + + + + | Performing | Address | City/State/Zipcode | Phone Number | | Organization | | | | + + + + + | [facility] | [address] | [place] [address] | | + + + + + Troponin I (01/05/2019 12:51 AM) + + + + + | Component | Value | Ref Range | Performed At | + + + + + | TROPONIN I | 0.076 (H)Comment: 0.04 | 0.00 - 0.04 ng/mL | [facility] | | | ng/mL [...] performed | | | | | at [facility];[address] [place] [address] | | | | | [facility];[place] [address] | | | + + + + + + + + + + | Performing | Address | City/State/Zipcode | Phone Number | | Organization | | | | + + + + + | [facility] | [address] | [place] [address] | | + + + + + Phosphorus (01/05/2019 12:51 AM) + + + + + | Component | Value | Ref Range | Performed At | + + + + + | PHOSPHORUS | 11.7 (HH)Comment: CALLED | 2.3 - 4.8 mg/dL | [facility] | | | TO LEONILA Hernández RN/BARI AT | | | | | [phone] BY MWREAD BACK | | | | | RESULTS VERIFIEDTesting | | | | | performed at [facility] | | | | | [facility];[place] | | | | | [address] | | | + + + + + + + | Specimen | + + | Blood | + + + + + + + | Performing | Address | City/State/Zipcode | Phone Number | | Organization | | | | + + + + + | [facility] | [address] | [place] [address] | | + + + + + Magnesium (01/05/2019 12:51 AM) + + + + + | Component | Value | Ref Range | Performed At | + + + + + | MAGNESIUM | 2.1Comment: Testing | 1.7 - 2.4 mg/dL | [facility] | | | performed at [facility] | | | | | [facility];[place], [place] | | | | | [address] | | | + + + + + + + | Specimen | + + | Blood | + + + + + + + | Performing | Address | City/State/Zipcode | Phone Number | | Organization | | | | + + + + + | [facility] | [address] | [place] [address] | | + + + + + Comprehensive metabolic panel (01/05/2019 12:51 AM) + + + + + | Component | Value | Ref Range | Performed At | + + + + + | SODIUM | 143 | 135 - 145 mmol/L | [facility] | + + + + + | POTASSIUM | 2.8 (L) | 3.5 - 4.9 mmol/L | [facility] | + + + [...] 2.7 | 1.3 - 4.9 g/dL | [facility] | + + + + + | A/G | 1.5 | 1.0 - 2.4 | [facility] | + + + + + | TBIL | 0.4 | 0.1 - 1.5 mg/dL | [facility] | + + + + + | ALK PHOS | 74 | 35 - 115 U/L | [facility] | + + + + + | AST | 55 (H) | 10 - 45 U/L | [facility] | + + + + + | ALT | 53 | 10 - 65 U/L | [facility] | + + + + + | EGFR | 3 (L)Comment: GFR <60: | >60 mL/min/1.73m2 | [facility] | | | [facility] [...] [facility] [place];[address] | | | | | [facility];[place], [place] | | | | | [address] | | | + + + + + + + | Specimen | + + | Blood | + + + + + + + | Performing | Address | City/State/Zipcode | Phone Number | | Organization | | | | + + + + + | [facility] | [address] | [place] [address] | | + + + + + CBC with differential (01/05/2019 12:51 AM) + + + + + | Component | Value | Ref Range | Performed At | + + + + + | WBC | 15.65 (H) | 3.80 - 11.00 K/uL | [facility] | + + + + + | RBC | 4.24 | 3.70 - 5.10 M/uL | [facility] | + + + + + | HGB | 12.7 | 11.3 - 15.5 g/dL | [facility] | + + + + + | HCT | 37.4 | 34.0 - 46.0 % | [facility] | + + + + + | MCV | 88.2 | 80.0 - 100.0 fl | [facility] | + + + + + | MCH | 30.0 | 27.0 - 34.0 pg | [facility] | + + + + + | MCHC | 34.0 | 32.0 - 35.5 g/dL | [facility] | + + + + + | RDW SD | 49.4 | 37 - 53 fl | [facility] | + + + + + | PLT | 337 | 150 - 400 K/uL | [facility] | + + + + + | MPV | 8.7 | fl | [facility] | + + + + + | DIFF TYPE | AUTOMATED | | [facility] | + + + + + [...] Testing | 0.00 - 0.10 K/uL | [facility] | | | performed at [facility];[address] | | | | | [address];[place] | | | | | [address] | | | + + + + + + + | Specimen | + + | Blood | + + + + + + + | Performing | Address | City/State/Zipcode | Phone Number | | Organization | | | | + + + + + | [facility] | [address] [facility] | [place] [address] | | + + + + + ED INFORMATION EXCHANGE (01/04/2019 10:36 PM) + + + | Narrative | Performed At | + + + | [id number] Criteria Met Care | ED | | [...] | | | Medical/Surgical 06/10/18 12:00 AM [facility] | | | Patient has not followed up with PCP in regards to ED visits. Last | | | time patient was seen by PCP was 06/10/17. Patient has done | | | multiple no shows to [facility]. Patient has been | | | seen by [facility] infectious disease for follow up by [...] | (12 mo.) Facility Visits Low Acuity [facility] | | | 5 0 [facility] 5 0 Total 10 0 Note: Visits | | | indicate total known visits. Medicaid Low Acuity Dx are the number of | | | primary diagnoses on the Medicaid's Low Acuity dx list. Recent | | | Emergency Department Visit Summary Date Facility City State Type | | | Diagnoses or Chief Complaint Jan 04, 2019 [facility] | | | [place] Emergency Jan 04, 2019 [facility] [place] | | | Emergency Chief Complaint: DEHYDRATION/CONSTIPATION Dec 31, | | | 2018 [facility] [place] Emergency Other beer cooler | | | (current) drug therapy Anxiety disorder, unspecified | | | Dependence on renal dialysis Essential (primary) hypertension | | | Dec 24, 2018 [facility] 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 [place] Emergency Abdominal Pain | | | Chest Pain Spontaneous bacterial peritonitis | | | Bandemia Dependence on renal dialysis End stage renal | | | disease Jun 07, [address] [facility] Emergency | | | Peritonitis, unspecified Panic disorder [episodic | | | paroxysmal anxiety] Chronic kidney disease, unspecified | | | Dependence on renal dialysis [facility], [facility] | | [facility] [place] [place] Emergency Flank Pain Unspecified abdominal | | | pain Dependence on renal dialysis Patient's | | | noncompliance with other medical treatment and regimen End | | | stage renal disease Noninflammatory disorder of ovary, | | | fallopian tube and broad ligament, unspecified March 16, 2018 [facility] | | | [facility] [place] Emergency abdominal pain | | | Chronic kidney disease, unspecified Hypotension, unspecified | | | Unspecified abdominal pain March 11, [address] [facility] [address] [facility] | | | [place] Emergency Unspecified abdominal pain | | | Peritonitis, unspecified Infection and inflammatory reaction | | | due to other cardiac and vascular devices, implants and grafts, | | | initial encounter Dependence on renal dialysis Other | | | beer cooler (current) drug therapy Essential (primary) | | | hypertension Mar 04, 2018 [facility] [place] | | | Emergency Emesis Abdominal Pain Recent | | | Inpatient Visit Summary Date Facility City State Type Diagnoses or | | | Chief Complaint Dec 24, [facility] | | Medicine Unspecified abdominal pain End stage renal | | | disease Dependence on renal dialysis Dec 07, 2018 [facility] | | | [facility] Bandemia | | | Spontaneous bacterial peritonitis End stage renal disease | | | Dependence on renal dialysis Peritonitis, unspecified | | | Infection and inflammatory reaction due to peritoneal dialysis | | | catheter, subsequent encounter Anemia in chronic kidney disease | | | Jun 07, 2018 [facility] | | | Bacterial peritonitis End stage renal disease | | | Dependence on renal dialysis March 16, 2018 [facility] | | | [place] General Medicine Chronic kidney disease, | | | unspecified Hypotension, unspecified Unspecified | | | abdominal pain Dependence on renal dialysis End stage | | | renal disease Noninflammatory disorder of ovary, fallopian tube | | | and broad ligament, unspecified Mar 04, 2018 [facility] | | | [place] Recovery Emesis Abdominal Pain | | | Generalized abdominal pain Dependence on renal dialysis | | | End stage renal disease Nausea with vomiting, unspecified | | | Care Providers Provider PRC Type Phone Fax Service Dates | | | JUAN F WHITLEY MD Family Medicine Jun 08, 2018 - Current | | | FiFully Portal This patient has registered at the [facility] | | | [facility] Emergency Department For more information visit: | | | [email or web address] | | | [id number] The above information is provided for the sole purpose of | | | patient treatment. Use of this information beyond the terms of Data | | | Sharing Memorandum of Understanding and License Agreement is | | | prohibited. In certain cases not all visits may be represented. | | | Consult the aforementioned facilities for additional information. | | | 2019 [employer] - [place], [place] - | | | [email or web address] | | + + + + + | Procedure Note | + + | Interface, Lab - 01/04/2019 10:38 PM PST Formatting of this note may be different | | from the original.[id number] Met Care Guidelines 10 in 12 | | 2 in 2Security and SafetyNo recent Security Events currently on fileED Care | | GuidelinesThere are currently no ED Care Guidelines for this patient. Please check your | | facility's medical records system.Care HistoryMedical/Surgical06/10/18 12:00 AM [facility]. | | [facility] Patient has not followed up with PCP in regards to ED visits. Last | | time patient was seen by PCP was 06/10/17. Patient has done multiple no shows to | | [facility]. Patient has been seen by [facility] infectious disease for follow | | [...] Visit Count (12 mo.)Facility Visits Low Acuity [facility] | [facility] 5 0 [facility] 5 0 Total 10 0 Note: Visits indicate total | | known visits. Medicaid Low Acuity Dx are the number of primary diagnoses on the | | Medicaid's Low Acuity dx list. Recent Emergency Department Visit SummaryDate Facility | | City State Type Diagnoses or Chief Complaint [facility] [place] [facility] Chief Complaint: | | [facility]DRATION[facility]CONSTIPATION [facility] [place] [facility] Other | | skilled nursing (current) drug therapy Anxiety disorder, unspecified Dependence on renal | | dialysis Essential (primary) hypertension [facility], [facility] [place] | | Emergency Hypertensive heart and chronic kidney disease without heart failure, with | | stage 5 chronic kidney disease, or end stage renal disease End stage renal disease | | Nausea with vomiting, unspecified Other skilled nursing (current) drug therapy Left | | upper quadrant pain Dependence on renal dialysis Dec 07, 2018 [facility] [place]airo | | [place] Emergency Abdominal Pain Chest Pain Spontaneous bacterial peritonitis | | Bandemia Dependence on renal dialysis End stage renal disease Jun 07, 2018 | | [facility] [place] [place] Emergency Peritonitis, unspecified Panic disorder | | [episodic paroxysmal anxiety] Chronic kidney disease, unspecified Dependence on | | renal dialysis Jun 04, 2018 [facility] [place] Emergency Flank Pain | | Unspecified abdominal pain Dependence on renal dialysis Patient's noncompliance | | with other medical treatment and regimen End stage renal disease Noninflammatory | | disorder of ovary, fallopian tube and broad ligament, unspecified March 16, 2018 [facility] | | [place] Emergency abdominal pain Chronic kidney disease, | | unspecified Hypotension, unspecified Unspecified abdominal pain March 11, 2018 [facility] | | [place] Emergency Unspecified abdominal pain Peritonitis, | | unspecified Infection and inflammatory reaction due to other cardiac and vascular | | devices, implants and grafts, initial encounter Dependence on renal dialysis Other | | beer cooler (current) drug therapy Essential (primary) hypertension Mar 04, 2018 | | [facility] Moe [place] Emergency Emesis Abdominal Pain Recent Inpatient | | Visit SummaryDate Facility [facility] State Type Diagnoses or Chief Complaint Dec 24, 2018 | | [facility] Moe [place] General Medicine Unspecified abdominal pain End | | stage renal disease Dependence on renal dialysis Dec 07, 2018 [facility] Moe Gill | | [place] General Medicine Bandemia Spontaneous bacterial peritonitis End stage | | renal disease Dependence on renal dialysis Peritonitis, unspecified Infection | | and inflammatory reaction due to peritoneal dialysis catheter, subsequent encounter | | Anemia in chronic kidney disease Jun 07, 2018 [facility] Moe [place] General | | Medicine Bacterial peritonitis End stage renal disease Dependence on renal | | dialysis March 16, 2018 [facility] [place] General Medicine Chronic kidney | | disease, unspecified Hypotension, unspecified Unspecified abdominal pain | | Dependence on renal dialysis End stage renal disease Noninflammatory disorder of | | ovary, fallopian tube and broad ligament, unspecified Mar 04, 2018 [facility] Moe Gill | | [place] Recovery Emesis Abdominal Pain Generalized abdominal pain | | Dependence on renal dialysis End stage renal disease Nausea with vomiting, | | unspecified Care ProvidersProvider [facility] Type Phone Fax Service Dates JUAN F WHITLEY MD | | Family Medicine Jun 08, 2018 - Current FiFully PortalThis patient has registered | | at the [facility] Emergency Department For more information visit: | | [email or web address] The above | | information is provided for the sole purpose of patient treatment. Use of this | | information beyond the terms of Data Sharing Memorandum of Understanding and License | | Agreement is prohibited. In certain cases not all visits may be represented. Consult the | | aforementioned facilities for additional information. 2019 [employer] | | [facility] - [place], [place] - [email or web address] | |Jun 07, 2018 [facility] [place] Emergency | | Peritonitis, unspecified | | Panic disorder [episodic paroxysmal anxiety] | | Chronic kidney disease, unspecified | | Dependence on renal dialysis | | | |Jun 04[facility] | | Flank Pain | | Unspecified abdominal pain | | Dependence on renal dialysis | | Patient's noncompliance with other medical treatment and regimen | | End stage renal disease | | Noninflammatory disorder of ovary, fallopian tube and broad ligament, unspecified | | | |March 16, 2018 [facility] | | abdominal pain | | [...] Dependence on renal dialysis | | Other beer cooler (current) drug therapy | | Essential (primary) hypertension | | | |Mar 04, 2018 [facility] [place] Emergency | | Emesis | | Abdominal Pain | | | | | | | |Recent Inpatient Visit Summary | |Date Facility [facility] State Type Diagnoses or Chief Complaint | |Dec 24, 2018 [facility] [place] [facility] | | Unspecified abdominal pain | | End stage renal disease | | Dependence on renal dialysis | | | |Dec 07, 2018 [facility] General Medicine | | Bandemia | | Spontaneous bacterial peritonitis | | End stage renal disease | | Dependence on renal dialysis | | Peritonitis, unspecified | | Infection and inflammatory reaction due to peritoneal dialysis catheter, subsequent enco unter | | Anemia in chronic kidney disease | | | |Jun 07, 2018 [facility] General Medicine | | Bacterial peritonitis | | End stage renal disease | | Dependence on renal dialysis | | | |March 16, 2018 [facility] General Medicine | | Chronic kidney disease, unspecified | | Hypotension, unspecified | | Unspecified abdominal pain | | Dependence on renal dialysis | | End stage renal disease | | Noninflammatory disorder of ovary, fallopian tube and broad ligament, unspecified | | | |Mar 04, 2018 [facility] Recovery | | Emesis | | [...] 08, 2018 - Current | | | |FiFully Portal | |This patient has registered at the [facility] Emergency Department | |For more information visit: [email or web address] | |The above information is provided for the sole purpose of patient treatment. Use of this in formation beyond the terms of Data Sharing Memorandum of Understanding and License Agreement is prohibited. In | |certain cases not all visits may be represented. Consult the aforementioned facilities for additional information. | |2019 [employer] - [place], [place] - [email or web address] | + + + +---------+ + + [...] | | | | | dose on [facility] 01/07/19 at 1700 | | | | [...] | | | | | Once, [facility] 01/05/19 at 1100, For 1 | | PST | | | | | dose | | | | | | + +-------+ +--------+---+---+ +---+---+ | | | +---+---+ + +-------+ +--------+---+---+ | potassium chloride (K-DUR) CR | Given | 01/08/2019 | 60 mEq | | | | tablet 60 mEq 60 mEq, Oral, | | 13:06 | | | | | Once, [facility] 01/08/19 at 1130, For 1 | [...] | | | | | | Starting [facility] 01/07/19 at 0840, | | | | [...]
--- OUTSIDE RECORDS SUMMARY | ~2019-01-28 | XMS | Clinical Summary ---
Demographics + + + | Address | [address] | | | [place] [address] | + + + | Home Phone | | + + + | Preferred Language | Unknown | + + + | Marital Status | | + + + | Church Affiliation | Unknown | + + + | Race | Unknown | + + + | Ethnic Group | Unknown | + + + Author + + + | Author | [facility] [email or web address] | + + + | Organization | [facility] [employer] | + + + | Address | Unknown | + + + | Phone | Unavailable | + + + Support + + + + + | Name | Relationship | Address | Phone | + + + + + | Lyubov Smalls | MASHA | [place] | | | | | [address] | | + + + + + | Lydia Palm | ECON | [place] | | | | | [address] | | + + + + + | Jose C Oconnor | ECON | [address] | | | | | [place] | | | | | [address] | | + + + + + Care Team Providers + +------+ + | Care [facility] Police Officer Name | Role | Phone [...] | | | Activ | | (DRISDOL) [id number] | mouth once a week. | | [...] | Sepsis ([facility]) | 03/16/20 | | | | 18 | 8 | + + + + | Peritonitis ([facility]LY [facility]) | 03/16/20 | | | | 18 [...] | 2018 | | | | (FORMERLY [facility]); End-stage | | | | | | renal disease on | | | | | | peritoneal dialysis | | | | | | ([facility]ERLY [facility]) | +--------+ + + + + +---+ [...] | | | MRN: | | | [id number] | | | OM: | | | [...] | | ergocalcife | | | rol 44089 | | | units | | | [...] | | | [place], | | | [id number] | | | [place] | | | d | | | [address] | | | n [place] | | | [phone] | | | [phone] 1 | | | weekFadi H | | | [place], | | | MD[address] | | | [address] | | | [place] | | | [place] | | | [place] | | | [phone] | | | [phone] 1 | | [...] 2018 | on Only | | | [facility] | | | | [...] | | | MRN: | | | [id number] | | | te of | | [...] | | | Provider: | | | Hilad | | | Jerry, | | | [...] | | | nding | | | 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 | | | Discharge | | | Information | | | :Follow | | | up:Juan F | | | [place], | | | [id number] | | | [place] | | | d | | | [address] | | | n [place] | | | [phone] | | | [phone] | | | [...] | | ergocalcife | | | rol [address] | | | units | | | [...] | | | miriam | | | [id number] | | | 2 PM | +---+ [...] | | ([facility]LY [facility]); Anemia in | | | | | | ESRD (end-stage | | | | | | renal disease) | | | | | | ([facility]LY [facility]); Peritonitis | | | | | | [...] | | | MRN: | | | [id number] | | | te of | | [...] | | | [place], | | | [id number] | | | Confederate | | | d | | | [address] | | | n [place] | | | [phone] | | | [phone] | | | H Akoum, | | | MD[address] | | | [address] | | | [place] | | | [place] | | | [place] | | | [phone] | | | [phone] | | | [...] | | ergocalcife | | | rol [address] | | | units | | | [...] | | | miriam | | | [id number] | | | 8 PM | +---+ [...] | | | | | [place] [address] | | | + + + + + + + | Specimen | + + | Blood | + + + + + + + | Performing | Address | City/State/Zipcode | Phone Number | | Organization | | | | + + + + + | [facility] | [address] | [place] [address] | [phone] | | LABORATORY | Any. | | | + + + + + Magnesium (01/09/2019 5:46 AM)Only the most recent of 9 results within the time period is included. + + + + + | Component | Value | Ref Range | Performed At | + + + + + | MAGNESIUM | 2.0Comment: Testing | 1.7 - 2.4 mg/dL | [facility] | | | performed at [facility], [address] | | LABORATORY | | | [address], | | | | | [place] [address] | | | + + + + + + + | Specimen | + + | Blood | + + + + + + + | Performing | Address | City/State/Zipcode | Phone Number | | Organization | | | | + + + + + | [facility] | [address] | [place] [address] | [phone] | | LABORATORY | Blvd. | | [...] | | | | | performed at [facility], [address] | | | | | [facility], | | | | | [place] [address] | | | + + + + + + + | Specimen | + + | Blood | + + + + + + + | Performing | Address | City/State/Zipcode | Phone Number | | Organization | | | | + + + + + | [facility] | [address] | [place] [address] | [phone] | | LABORATORY | Blvd. | | [...] the | | | | | MDRD IDKY traceable | | | | | equation.Testing | | | | | performed at [facility], [address] | | | | | [facility], | | | | | [place] [address] | | | + + + + + + + | Specimen | + + | Blood | + + + + + + + | Performing | Address | City/State/Zipcode | Phone Number | | Organization | | | | + + + + + | [facility] | [address] | [place] [address] | [phone] | | LABORATORY | Blvd. | | | + + + + + PROCALCITONIN (01/06/2019 5:29 AM) + + + + + | Component | Value | Ref Range | Performed At | + + + + + | PROCALCITONIN | 0.82 (H)Comment: | <0.5 ng/mL | [facility] | | | INTERPRETIVE [...] performed | | | | | at [facility];[address] [place] [address] | | | | | [facility];[place] [address] | | | + + + + + + + + + + | Performing | Address | City/State/Zipcode | Phone Number | | Organization | | | | + + + + + | [facility] | [address] | [place] [address] | | + + + + + C-reactive protein (01/06/2019 5:29 AM)Only the most recent of 2 results within the time garfield drake is included. + + + + + | Component | Value | Ref Range | Performed At | + + + + + | CRP | 0.3Comment: Testing | <0.5 mg/dL | [facility] | | | performed at [facility], [address] | | LABORATORY | | | [facility], | | | | | [place] [address] | | | + + + + + + + | Specimen | + + | Blood | + + + + + + + | Performing | Address | City/State/Zipcode | Phone Number | | Organization | | | | + + + + + | [facility] | [address] [place] [address] | [place] [address] | [phone] | | LABORATORY | Any. | | [...] | [facility] | | | performed at [facility], [address] | | LABORATORY | | | [address], | | | | | [place] [address] | | | + + + + + + + | Specimen | + + | Blood | + + + + + + + | Performing | Address | City/State/Zipcode | Phone Number | | Organization | | | | + + + + + | [facility] | [address] | [place] [address] | [phone] | | LABORATORY | Blvd. | | [...] 0.04 | 0.00 - 0.04 ng/mL | [facility] | | | ng/mL [...] performed | | | | | at [facility];[address] | | | | [address];[place] [address] | | | + + + + + + + | Specimen | + + | Blood | + + + + + + + | Performing | Address | City/State/Zipcode | Phone Number | | Organization | | | | + + + + + | [facility] | [address] | [place] [address] | | + + + + + Protime-INR (01/05/2019 5:42 AM) + + + + + | Component | Value | Ref Range | Performed At | + + + + + | INR | 1.1Comment: REFERENCE | | [facility] | | | RANGE:0.9 [...] | | | | performed at [facility];[address] | | | | | [address];[place], [place] | | | | | [address] | | | + + + + + + + | Specimen | + + | Blood | + + + + + + + | Performing | Address | City/State/Zipcode | Phone Number | | Organization | | | | + + + + + | [facility] | [address] | [place] [address] | | + + + + + [...] | 39Comment: Testing | <100 mg/dL | [facility] | | | performed at [facility], [address] | | LABORATORY | | | [address] | | | | | [place] [address] | | | + + + + + + + | Specimen | + + | Blood | + + + + + + + | Performing | Address | City/State/Zipcode | Phone Number | | Organization | | | | + + + + + | [facility] | [address] | [place] [address] | [phone] | | LABORATORY | Blvd. | | [...] + + + + | Calculated P Montgomery | 27 | degrees | [facility] | + + + + + | Calculated R Montgomery | 79 | degrees | [facility] E[facility] | + + + + + | Calculated T [place] | -142 | degrees | [facility] E[facility] | + + + + + | Diagnosis | Normal sinus rhythm with | | [facility] E[facility] | | | sinus [...] -COMPUTER | | | | | (500), greeting card editor Collin, | | | | | Rashel Mercado (123) on | | | | | 01/05/2019 3:50:25 AM | | | + + + + + + + + + + | Performing | Address | City/State/Zipcode | Phone Number | | Organization | | | | + + + + + | [facility] | [address] | [place] [address] | | + + + + + ED INFORMATION EXCHANGE (01/04/2019 10:36 PM) + + + | Narrative | Performed At | + + + | [id number] [id number] Criteria Met Care | ED | | [...] | | Medical/Surgical 06/10/18 12:00 AM [facility] | | | Patient has not followed up with PCP in regards to ED visits. Last | | | time patient was seen by PCP was 06/10/17. Patient has done | | | multiple no shows to [facility]. Patient has been | | | seen by [facility] infectious disease for follow up by [...] (12 mo.) Facility Visits Low Acuity [facility] | | | 5 0 [facility] 5 0 Total 10 0 Note: Visits | | | indicate total known visits. Medicaid Low Acuity Dx are the number of | | | primary diagnoses on the Medicaid's Low Acuity dx list. Recent | | | Emergency Department Visit Summary Date Facility City State Type | | | Diagnoses or Chief Complaint Jan 04, 2019 [facility] Lexi.[place] | | | [place] Emergency Jan 04, 2019 [facility]. [place] | | | Emergency Chief Complaint: DEHYDRATION/CONSTIPATION Dec 31, | | | 2018 [facility] [place] Emergency Other jail | | | (current) drug therapy Anxiety disorder, unspecified | | | Dependence on renal dialysis Essential (primary) hypertension | | | Dec 24, 2018 [facility] 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 [place] Emergency Abdominal Pain | | | Chest Pain Spontaneous bacterial peritonitis | | | Bandemia Dependence on renal dialysis End stage renal | | | disease Jun 07, 2018 [facility] [place] Emergency | | | Peritonitis, unspecified Panic disorder [episodic | | | paroxysmal anxiety] Chronic kidney disease, unspecified | | | Dependence on renal dialysis Jun 04, 2018 [facility] Lexi.CIris | | | [place] Emergency Flank Pain Unspecified abdominal | | | pain Dependence on renal dialysis Patient's | | | noncompliance with other medical treatment and regimen End | | | stage renal disease Noninflammatory disorder of ovary, | | | fallopian tube and broad ligament, unspecified March 16, 2018 [facility] | [facility] abdominal pain | | | Chronic kidney disease, unspecified Hypotension, unspecified | | | Unspecified abdominal pain March 11, 2018 [facility] [facility] | | | [place] Emergency Unspecified abdominal pain | | | Peritonitis, unspecified Infection and inflammatory reaction | | | due to other cardiac and vascular devices, implants and grafts, | | | initial encounter Dependence on renal dialysis Other | | | jail (current) drug therapy Essential (primary) | | | hypertension Mar 04, 2018 [facility] | | Emergency Emesis Abdominal Pain Recent | | | Inpatient Visit Summary Date Facility City State Type Diagnoses or | | | Chief [facility] | | | Medicine Unspecified abdominal pain End stage renal | | | disease Dependence on renal dialysis Dec 07, 2018 [facility] | | | [facility] General Medicine Bandemia | | | Spontaneous bacterial peritonitis End stage renal disease | | | Dependence on renal dialysis Peritonitis, unspecified | | | Infection and inflammatory reaction due to peritoneal dialysis | | | catheter, subsequent encounter Anemia in chronic kidney disease | | | [facility] | | | Bacterial peritonitis End stage renal disease | | | Dependence on renal dialysis March 16, 2018 [facility] | | | [facility] General Medicine Chronic kidney disease, | | | unspecified Hypotension, unspecified Unspecified | | | abdominal pain Dependence on renal dialysis End stage | | | renal disease Noninflammatory disorder of ovary, fallopian tube | | | and broad ligament, unspecified Mar 04, 2018 [facility] | | | [facility] Recovery Emesis Abdominal Pain | | | Generalized abdominal pain Dependence on renal dialysis | | | End stage renal disease Nausea with vomiting, unspecified | | | Care Providers Provider PRC Type Phone Fax Service Dates | | | JUAN F WHITLEY MD Family Medicine Jun 08, 2018 - Current | | | TAKO This patient has registered at the [facility] | | | [facility] Emergency Department For more information visit: | | | [email or web address] | | | [phone] The above information is provided for the sole purpose of | | | patient treatment. Use of this information beyond the terms of Data | | | Sharing Memorandum of Understanding and License Agreement is | | | prohibited. In certain cases not all visits may be represented. | | | Consult the aforementioned facilities for additional information. | | | 2019 [employer] - [place], [place] - | | | [email or web address] | | + + + + + | Procedure Note | + + | Interface, Lab - 01/04/2019 10:38 PM PST Formatting of this note may be different | | from the original.[id number] [id number] Met Care Guidelines 10 in 12 | | 2 in 2Security and SafetyNo recent Security Events currently on fileED Care | | GuidelinesThere are currently no ED Care Guidelines for this patient. Please check your | | facility's medical records system.Care HistoryMedical/Surgical06/10/18 12:00 AM [facility] | | [facility] Patient has not followed up with PCP in regards to ED visits. Last | | time patient was seen by PCP was 06/10/17. Patient has done multiple no shows to | | [facility]. Patient has been seen by [facility] infectious disease for follow | | [...] Visit Count (12 mo.)Facility Visits Low Acuity [facility] | [facility] 5 0 [facility] 5 0 Total 10 0 Note: Visits indicate total | | known visits. Medicaid Low Acuity Dx are the number of primary diagnoses on the | | Medicaid's Low Acuity dx list. Recent Emergency Department Visit SummaryDate Facility | | City State Type Diagnoses or Chief Complaint Jan 04, 2019 [facility] [place] | | Emergency Jan 04, 2019 [facility] [place] Emergency Chief Complaint: | | DEHYDRATION/CONSTIPATION Dec 31, 2018 [facility] 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 [place] Emergency Peritonitis, unspecified Panic disorder | | [episodic paroxysmal anxiety] Chronic kidney disease, unspecified Dependence on | | renal dialysis Jun 04, 2018 [facility] Moe [place] Emergency Flank Pain | | Unspecified abdominal pain Dependence on renal dialysis Patient's noncompliance | | with other medical treatment and regimen End stage renal disease Noninflammatory | | disorder of ovary, fallopian tube and broad ligament, unspecified March 16, 2018 [facility] | | Moe [place] Emergency abdominal pain Chronic kidney disease, | | unspecified Hypotension, unspecified Unspecified abdominal pain March 11, 2018 [facility] | | [facility] [place] Emergency Unspecified abdominal pain Peritonitis, | | unspecified Infection and inflammatory reaction due to other cardiac and vascular | | devices, implants and grafts, initial encounter Dependence on renal dialysis Other | | jail (current) drug therapy Essential (primary) hypertension Mar 04, 2018 | | [facility] [place] Emergency Emesis Abdominal Pain Recent Inpatient | | Visit SummaryDate Facility City State Type Diagnoses or Chief Complaint Dec 24, 2018 | | [facility] Moe [place] General Medicine Unspecified abdominal pain End | | stage renal disease Dependence on renal dialysis Dec 07, 2018 [facility] Jairo | | [facility] [place] [facility] Bandemia Spontaneous bacterial peritonitis End stage | | renal disease Dependence on renal dialysis Peritonitis, unspecified Infection | | and inflammatory reaction due to peritoneal dialysis catheter, subsequent encounter | | Anemia in chronic kidney disease Jun 07, 2018 [facility] [place] General | | Medicine Bacterial peritonitis End stage renal disease Dependence on renal | | dialysis March 16, 2018 [facility] J[place] General Medicine Chronic kidney | | disease, unspecified Hypotension, unspecified Unspecified abdominal pain | | Dependence on renal dialysis End stage renal disease Noninflammatory disorder of | | ovary, fallopian tube and broad ligament, unspecified Mar 04, 2018 [facility] Moe Gill | | [place] Recovery Emesis Abdominal Pain Generalized abdominal pain | | Dependence on renal dialysis End stage renal disease Nausea with vomiting, | | unspecified Care ProvidersProvider PRC Type Phone Fax Service Dates JUAN F WHITLEY MD | | Family Medicine Jun 08, 2018 - Current [place] PortalThis patient has registered | | at the [facility] Emergency Department For more information visit: | | [email or web address] The above | | information is provided for the sole purpose of patient treatment. Use of this | | information beyond the terms of Data Sharing Memorandum of Understanding and License | | Agreement is prohibited. In certain cases not all visits may be represented. Consult the | | aforementioned facilities for additional information. 2019 [employer] | | [employer]. - [place], [place] - [email or web address] | |Jun 07, [address] [facility] [place] Emergency | | Peritonitis, unspecified | | Panic disorder [episodic paroxysmal anxiety] | | Chronic kidney disease, unspecified | | Dependence on renal dialysis | | | |Jun 04, 2018 [facility] Jairo [place] Emergency | | Flank Pain | | Unspecified abdominal pain | | Dependence on renal dialysis | | Patient's noncompliance with other medical treatment and regimen | | End stage renal disease | | Noninflammatory disorder of ovary, fallopian tube and broad ligament, unspecified | | | |March 16, 2018 [facility] Emergency | | abdominal pain | | Chronic kidney disease, unspecified | | Hypotension, unspecified | | Unspecified abdominal pain | | | |March 11, 2018 [facility] 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 | | Essential (primary) hypertension | | | |Mar 04, 2018 [facility] Emergency | | Emesis | | Abdominal Pain | | | | | | | |Recent Inpatient Visit Summary | |Date Facility City State Type Diagnoses or Chief Complaint | |Dec 24, 2018 [facility] General Medicine | | Unspecified abdominal pain | | End stage renal disease | | Dependence on renal dialysis | | | |Dec 07, 2018 [facility] General Medicine | | Bandemia | | Spontaneous bacterial peritonitis | | End stage renal disease | | Dependence on renal dialysis | | Peritonitis, unspecified | | Infection and inflammatory reaction due to peritoneal dialysis catheter, subsequent enco unter | | Anemia in chronic kidney disease | | | |Jun 07, 2018 [facility] General Medicine | | Bacterial peritonitis | | End stage renal disease | | Dependence on renal dialysis | | | |March 16, 2018 [facility] General Medicine | | Chronic kidney disease, unspecified | | Hypotension, unspecified | | Unspecified abdominal pain | | Dependence on renal dialysis | | End stage renal disease | | Noninflammatory disorder of ovary, fallopian tube and broad ligament, unspecified | | | |Mar 04, 2018 [facility] Recovery | | Emesis | [...] |This patient has registered at the [facility] Emergency Department | |For more information visit: [email or web address] | |The above information is provided for the sole purpose of patient treatment. Use of this in formation beyond the terms of Data Sharing Memorandum of Understanding and License Agreement is prohibited. In | |certain cases not all visits may be represented. Consult the aforementioned facilities for additional information. | |2019 [employer]. - [place], [place] - [email or web address] | + + + +---------+ + + [...] HYDROcodone-acetaminophen, HYDROmorphone [place] | | | HYDROmorphone, nitttnhjh-kbvskp-zizjvppufe, ondansetron [place] | | | ondansetron, polyethylene [...] | | last 3 completed shifts: In: 26958 [P.O.:250; Other:21932] Out: | | | 26886 [Emesis/NG output:200; Other:62036] Assessment: Ms. Oconnor | | | is [...] | [facility] | | | performed at [facility], [address] | | LABORATORY | | | [address], | | | | | [place] [address] | | | + + + + + + + + + + | Performing | Address | City/State/Zipcode | Phone Number | | Organization | | | | + + + + + | [facility] | [address] [place] [address] | [place] [address] | [phone] | | LABORATORY | [address] | | | + + + + + lilian Bernard (12/27/2018 5:44 AM)Only the most recent of 2 results within the time garfield drake is included. + + + + + | Component | Value | Ref Range | Performed At | + + + + + | VANCOMYCIN,RANDOM | 20.5Comment: Testing | ug/mL | [facility] | | | performed at [facility];[address] | | | | | [address];[place], [place] | | | | | [address] | | | + + + + + + + | Specimen | + + | Blood | + + + + + + + | Performing | Address | City/State/Zipcode | Phone Number | | Organization | | | | + + + + + | [facility] | [address] | [place] [address] | | + + + + + [...] HYDROcodone-acetaminophen, HYDROmorphone OR | | | HYDROmorphone, buintkdyz-ttmnfj-ollphrnlkf, ondansetron OR | | | ondansetron, polyethylene [...] + + + + | Calculated P Montgomery | 3 | degrees | [facility] | + + + + + | Calculated R Montgomery | 35 | degrees | [facility] | + + + + + | Calculated T Montgomery | 134 | degrees | [facility] [...] | + + + + + | [facility] | [address] | [facility] [place] [address] | | + + + + + [...] (H) | 0.50 - 1.00 mg/dL | [facility] | + + + + + | CALCIUM | 8.3 (L) | 8.5 - 10.5 mg/dL | [facility] | + + + + + | Albumin | 3.9 | 3.6 - 5.0 g/dL | [facility] | + + + + + | PHOSPHORUS | 8.7 (H) | 2.3 - 4.8 mg/dL | [facility] | + + + + + | EGFR | 3 (L)Comment: GFR <60: | >60 mL/min/1.73m2 | [facility] | | | CHRONIC [...] the | | | | | MDRD [facility] traceable | | | | | equation.Testing | | | | | performed at [facility] | | | | | [facility];[place], [place] | | | | | [address] | | | + + + + + + + | Specimen | + + | Blood | + + + + + + + | Performing | Address | City/State/Zipcode | Phone Number | | Organization | | | | + + + + + | [facility] | [address] | [place] [address] | | + + + + + [...] + + + + + | [facility] | [address] | [place] [address] | [phone] | | LABORATORY | [address]vd[address] | | [...] + + + + | RBC'S | <41987 | /mm3 | [facility] | + [...] | MONOCYTES/MACROPHAGE | 3 | % | [facility] | | S | | | | + + + + + | CELLS COUNTED | 100Comment: Testing | | [facility] | | | performed at [facility];[address] | | | | | [address];[place] | | | | | [address] | | | + + + + + + + | Specimen | + + | Other - Peritoneal | | [place] | + + + + + + + | Performing | Address | City/State/Zipcode | Phone Number | | Organization | | | | + + + + + | [facility] | [address] | [place] [address] | | + + + + + [...] SPECIAL REQUESTS | LEFT WRIST | | [facility] | + + + [...] | + + + + + | [facility] | [address] | [place] [address] | [phone] | | LABORATORY | Any. | | | + + + + + | [facility] | [address] | [place] [address] | | + + + + + [...] + + + + + | [facility] | [address] | [place] [address] | [phone] | | LABORATORY | Any. | | | + + + + + | [facility] | [address] | [place] [address] | | + + + + + MRSA by PCR (12/25/2018 1:29 AM)Only the most recent of 2 results within the time period i s included. + + + + + | Component | Value | Ref Range | Performed At | + + + + + | SOURCE | NARES(NOSE) | | [facility] | + + + + + | MRSA PCR | NEGATIVEComment: Testing | NEGATIVE | [facility] | | | performed at [facility];[address] | | | | | [address];[place], [place] | | | | | [address] | | | + + + + + + + | Specimen | + + | Nasopharyngeal - | | Nares(Nose) | + + + + + + + | Performing | Address | City/State/Zipcode | Phone Number | | Organization | | | | + + + + + | [facility] | [address] | [place] [address] | | + + + + + [...] 3 completed | | | shifts: In: 68241 [P.O.:1110; I.V.:2701; Other:57302] Out: 58073 | | | [Emesis/NG output:240; Other:36920] Assessment: Ms. Oconnor is a | | [...] 3 completed | | | shifts: In: 46010 [P.O.:1200; I.V.:2902; Other:88151] Out: 15539 | | | [Other:25446] Assessment: Ms. Oconnor is a 38 y.o. [...] | LABORATORY | | | performed at [facility], [address] | | | | | [address], | | | | | [place] [address] | | | | | | | | + + + + + + + | Specimen | + + | Blood | + + + + + + + | Performing | Address | City/State/Zipcode | Phone Number | | Organization | | | | + + + + + | [facility] | [address] | [place] [address] | [phone] | | LABORATORY | [place]. | | [...] RAMONA OCONNOR Date of : 1980 | [facility] | | Performing Physician: Imtiaz Mari [...] RV | | | S': 0.11 m/s Head Gauge Unit Operator: NAVJOT Authenticated by: Imtiaz Mari | | | Report Date/Time: 12-08-2018 17:48:59 | | + + + + + | Procedure Note | + + | Endy, Rad Results In - 12/08/2018 5:49 PM PST Patient Name: Shlomo OCONNOR of | | : 1980Accession: [id number] Physician: Imtiaz Mari | | MD INDICATIONS [...] mlLAESV Index (A-L): 26.00 ml/m2LAAs A2C: 16.18 [id number] | | A-L A2C: 41.14 mlLALs A2C: 5.40 cmLAAs A4C: 18.51 [id number] A-L A4C: 51.64 | | mlLALs A4C: 5.63 cmTAPSE: 1.80 cmAV maxP.66 mmHgAV meanP.54 mmHgAV Vmax: | | 1.38 m/Monica Vmean: 1.00 m/Monica VTI: 26.68 cmAVA Vmax: 2.35 cm2AVA (VTI): 2.52 | | [id number] Vmax: 0.00 cm2/m2AVAI (VTI): 0.00 cm2/m2LVOT maxP.36 [...] |RV S': 0.11 m/s | | | |Head Gauge Unit Operator: MW | |Authenticated by: Imtiaz Mari MD [...] [facility] | [address] | [place] [address] | | + + + + + [...] | + + + + + | [facility] | [address] | [place] [address] | | + + + + + [...] [facility] | [address] | [place] [address] | | + + + + + [...] (H) | 3.80 - 11.00 K/uL | [facility] | + + + + + | RBC | 4.73 | 3.70 - 5.10 M/uL | [facility] | + + + + + | HGB | 13.6 | 11.3 - 15.5 g/dL | [facility] | + + + + + | HCT | 40.9 | 34.0 - 46.0 % | [facility] | + + + + + | MCV | 86.4 | 80.0 - 100.0 fl | [facility] | + + + + + | MCH | 28.8 | 27.0 - 34.0 pg | [facility] | + + + + + | MCHC | 33.4 | 32.0 - 35.5 g/dL | [facility] | + + + + + | RDW SD | 45.1 | 37 - 53 fl | [facility] | + + + + + | PLT | 484 (H) | 150 - 400 K/uL | [facility] | + + + [...] 9.4 | 8.5 - 10.5 mg/dL | [facility] | + + + + + | TOTAL PROTEIN | 8.7 (H) | 6.3 - 8.2 g/dL | [facility] | + + + + + | Albumin | 4.9 | 3.6 - 5.0 g/dL | [facility] | + + + [...] 146 | 30 - 240 U/L | [facility] | + + + + + | INR | 0.9Comment: REFERENCE | | [facility] | | | RANGE:0.9 [...] 28 | 23 - 32 seconds | [facility] | + + + + + | MMB | 1.7 | 0.5 - 3.6 ng/mL | [facility] | + + + + + | CK-MB Index | 1.2Comment: CK INDEX | | [facility] | | | INTERPRETATION: [...] | | | | performed at [facility] | | | | | [address];[place] | | | | | [address] | | | + + + + + + + + + + | Performing | Address | City/State/Zipcode | Phone Number | | Organization | | | | + + + + + | [facility] | [address] | [facility] [place] [address] | | + + + + + D-dimer, quantitative (12/07/2018 3:30 PM) + + + + + | Component | Value | Ref Range | Performed At | + + + + + | D DIMER, | 0.34Comment: Testing | 0.19 - 0.50 mg/L FEU | [facility] | | QUANTITATIVE | performed at [facility];[address];[place] | | | | | [address] | | | + + + + + + + | Specimen | + + | Blood | + + + + + + + | Performing | Address | City/State/Zipcode | Phone Number | | Organization | | | | + + + + + | [facility] | [address] | [place] [address] | | + + + + + BNP (12/07/2018 3:30 PM) + + + + + | Component | Value | Ref Range | Performed At | + + + + + | BRAIN NATRIURETIC | 50.36Comment: Testing | 0 - 100 pg/mL | [facility] | | PEPTIDE | performed at [facility];[address] | | | | | [address];[place] | | | | | [address] | | | + + + + + + + | Specimen | + + | Blood | + + + + + + + | Performing | Address | City/State/Zipcode | Phone Number | | Organization | | | | + + + + + | [facility] | [address] | [place] [address] | | + + + + + Lipase (12/07/2018 3:30 PM) + + + + + | Component | Value | Ref Range | Performed At | + + + + + | LIPASE | 51Comment: NOTE NEW | 12 - 53 U/L | [facility] | | | REFERENCE RANGETesting | | | | | performed at [facility] | | | | | [address];[place], [place] | | | | | [address] | | | + + + + + + + | Specimen | + + | Blood | + + + + + + + | Performing | Address | City/State/Zipcode | Phone Number | | Organization | | | | + + + + + | [facility] | [address] | [place] [address] | | + + + + + [...] +------+-------+ + | PREMERA | PREMER | [id number] | | | [address] [address] | | | A BLUE | | | | [place], [place] | | | CROSS | | | | [address] | | | FED | | | | | | | PPO | | | | | + +--------+ +------+-------+ + | MEDICARE | MEDICA | [id number] | | | [address] | | | RE | | | | [place] [address] | | | PART A | | | | | | | ONLY | | | | | + +--------+ +------+-------+ + | /[employer] | YELLOW | [id number] | | | | | PLANS | [...] | [place] | | | [phone] | [phone] | + +--------+ +--------+ + +
--- OUTSIDE RECORDS SUMMARY | ~2019-01-28 | XMS | Clinical Summary ---
Demographics + + + | Address | [address] | | | [place] [address] | + + + | Home Phone [...] [place], [place] | | | | | [address] | | + + + + + | Lydia Palm | ECON | [place], [place] | | | | | [address] | | + + + + + Care Team Providers + +------+ + | Care Gill Net Stringer Name | Role | Phone | + [...] +--------+ +---------+ | MEDICARE | MEDICA | [id number] | Medica | [phone] | | | RE | | re | [phone] | | | | PART A | | | | | | | AND B | | | | | + +--------+ +--------+ +---------+ | BCBS | BCBS | [id number] | PPO | | | | | [...] | Self [birth year] | Home: | [address] [place] [address] [address] | | TREVOR | al/Fam | | 1979 | [phone] | [place] | | | caesar | | | [phone] | [phone] | + +--------+ +--------+ + +
--- OUTSIDE RECORDS SUMMARY | ~2019-01-28 | XMS | Encounter Summary ---
Demographics + + + | Address | [address] | | | [place] [address] | + + + | Home Phone | | + + + | Preferred Language | Unknown | + + + | Marital Status | | + + + | Worship Affiliation | Unknown | + + + | Race | Unknown | + + + | Ethnic Group | Unknown | + + + Author + + + | Author | [facility] | + + + | Organization | [facility] [employer] | + + + | Address | Unknown | + + + | Phone | Unavailable | + + + Support + + + + + | Name | Relationship | Address | Phone | + + + + + | Lyubov Smalls | [address] | [place] | | | | | [address] | | + + + + + | Lydia Palm | ECON | [place] | | | | | [address] | | + + + + + | Jose C Oconnor | ECON | [address] | | | | | [place] | | | | | [address] | | + + + + + Care Team Providers + +------+ + | Care Information Officer Name | Role | Phone | [...] | | [address] | [address] [place], [place] | Dialysis Rounding | | | | [place] [address] | [phone] | Note) | | | | [phone] | | | +--------+ + + + [...]
[~2019-01-28 20:41] MED LIST changes: +TRAZODONE HCL100 MG PO; +ZOFRAN4 MG PO
--- OUTSIDE RECORDS SUMMARY | 2019-01-28 20:44 | XMS ---
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 Care History Medical/Surgical 06/10/2018 [facility] - Patient has not followed up with PCP in regards to ED visits. Last time patient was seen by PCP was 06/10/17. - Patient has done multiple no shows to [facility]. - Patient has been seen by [facility] infectious disease for follow up by Dr [...] providing care. E.D. VISIT COUNT (12 MO.) [address] [facility] VIJAY [facility]ff TOTAL 11 NOTE: Visits indicate total known visits. ED/UCC VISIT TRACKING (12 MO.) 01/28/2019 20:41 VIJAY [place] TYPE: Emergency COMPLAINT: - CHEST PAIN 01/05/2019 00:[address] [facility] DIAGNOSES: - Diverticulitis of intestine, part unspecified, without perforation or abscess without bleeding - Abdominal Pain - Dependence on renal dialysis - End stage renal disease - Hypokalemia 01/04/2019 14:16 VIJAY [place] TYPE: Emergency COMPLAINT: - DEHYDRATION/CONSTIPATION DIAGNOSES: - Essential (primary) hypertension - Diverticulitis of large intestine without perforation or abscess without bleeding - Unspecified abdominal pain 12/31/2018 14:15 VIJAY [place] [place] TYPE: Emergency COMPLAINT: - RESTLESS,DEHYDRATION DIAGNOSES: - Other senior care (current) drug therapy - Anxiety disorder, unspecified - Dependence on renal dialysis - Essential (primary) hypertension 12/24/2018 15:49 VIJAY [place] TYPE: Emergency COMPLAINT: - POSS DEHYDRATION DIAGNOSES: - Hypertensive heart and chronic kidney disease without heart failure, with stage 5 chronic kidney disease, or end stage renal disease - End stage renal disease - Nausea with vomiting, unspecified - Other senior care (current) drug therapy - Left upper quadrant pain - Dependence on renal dialysis 12/07/2018 12:34 [facility] TYPE: Emergency DIAGNOSES: - Spontaneous bacterial peritonitis - Abdominal Pain - Chest Pain - Bandemia - Dependence on renal dialysis - End stage renal disease 06/07/2018 14:25 VIJAY Khan TYPE: Emergency COMPLAINT: - ANXIETY DIAGNOSES: - Peritonitis, unspecified - Panic disorder [episodic paroxysmal anxiety] - Chronic kidney disease, unspecified - Dependence on renal dialysis 06/04/2018 23:12 [facility] TYPE: Emergency DIAGNOSES: - Dependence on renal dialysis - Flank Pain - Unspecified abdominal pain - Patient's noncompliance with other medical treatment and regimen - End stage renal disease - Noninflammatory disorder of ovary, fallopian tube and broad ligament, unspecified 03/16/2018 16:20 [facility] TYPE: Emergency DIAGNOSES: - Chronic kidney disease, unspecified - Hypotension, unspecified - abdominal pain - Unspecified abdominal pain 03/11/2018 13:37 VIJAY Khan TYPE: Emergency COMPLAINT: - VOMITING DIAGNOSES: - Unspecified abdominal pain - Peritonitis, unspecified - Infection and inflammatory reaction due to other cardiac and vascular devices, implants and grafts, initial encounter - Dependence on renal dialysis - Other senior care (current) drug therapy - Essential (primary) hypertension 03/04/2018 21:20 [facility] TYPE: Emergency DIAGNOSES: - Emesis - Abdominal Pain INPATIENT VISIT TRACKING (12 MO.) 01/05/2019 00:37 [facility] TYPE: Recovery DIAGNOSES: - Hypokalemia - Dependence on renal dialysis - End stage renal disease - Diverticulitis of intestine, part unspecified, without perforation or abscess without bleeding 12/24/2018 23:[address] [facility]: General [facility] DIAGNOSES: - End stage renal disease - Unspecified abdominal pain - Dependence on renal dialysis - Anemia in chronic kidney disease - Other disorders of phosphorus metabolism - Other disorders of plasma-protein metabolism, not elsewhere classified 12/07/2018 12:[address] [facility]: General Medicine DIAGNOSES: - End stage renal disease - Bandemia - Spontaneous bacterial peritonitis - Dependence on renal dialysis - Peritonitis, unspecified - Infection and inflammatory reaction due to peritoneal dialysis catheter, subsequent encounter - Anemia in chronic kidney disease 06/07/2018 22:[address] [facility]: General Medicine DIAGNOSES: - End stage renal disease - Bacterial peritonitis - Dependence on renal dialysis 03/16/2018 16:20 [facility] Jairo JI TYPE: General Medicine DIAGNOSES: - Chronic kidney disease, unspecified - Hypotension, unspecified - Dependence on renal dialysis - Noninflammatory disorder of ovary, fallopian tube and broad ligament, unspecified - End stage renal disease - Unspecified abdominal pain 03/04/2018 21:20 [facility] Jairo JI TYPE: Recovery DIAGNOSES: - Dependence on renal dialysis - Generalized abdominal pain - Emesis - Nausea with vomiting, unspecified - Abdominal Pain - End stage renal disease [email or web address]
--- NOTE | 2019-01-29 18:26 | EKG ---
[facility] [address] [place], [place] [address] Signed Normal sinus rhythm Low voltage QRS Nonspecific T wave abnormality Abnormal ECG No previous ECGs available Confirmed by NICK KINCAID MD ([id number]) on 01/29/2019 6:26:06 PM Electronically Signed By: NICK KINCAID MD 01/29/19 1826 PATIENT NAME: JOHN REEVES Electrocardiogram DATE OF : 76 PHYSICIAN: NICK KINCAID MD REPORT #: [id number] REPORT IS CONFIDENTIAL AND NOT TO BE RELEASED WITHOUT AUTHORIZATION
== END 2019-01-28 23:35 | disposition home or self-care (01) ==
LOC: ED 20:41
DX: R07.89 Other chest pain (principal); Z99.2 Dependence on renal dialysis; I10 Essential (primary) hypertension; Z79.899 Other long term (current) drug therapy
CPT/HCPCS: 71045; 80053; 84484; 84703; 85025; 85379; 93005; 93010; 96361; 96374; 96375; 99285-25; J1170; J2405; J7030

== ENCOUNTER 2019-01-31 18:34 | Emergency (ER) | payer BC, OTHER ==
[~2019-01-31] VITALS: Ht 157.5 cm; Wt 82.6 kg
--- OUTSIDE RECORDS SUMMARY | ~2019-01-31 | XMS | Encounter Summary ---
Demographics + + + | Address | [address] | | | [place] [address] | + + + | Home Phone | | + + + | Preferred Language | Unknown | + + + | Marital Status | | + + + | Yazdanism Affiliation | Unknown | + + + | Race | Unknown | + + + | Ethnic Group | Unknown | + + + Author + + + | Author | [email or web address] | + + + | Organization | [facility] | + + + | Address | Unknown | + + + | Phone | Unavailable | + + + Support + + + + + | Name | Relationship | Address | Phone | + + + + + | Lyubov Smalls | MASHA | [place] | | | | | [address] | | + + + + + | Lydia Palm | ECON | [place] | | | | | [address] | | + + + + + | Tyler Oconnor | ECON | [address] | | | | | [place] | | | | | [address] | | + + + + + Care Team Providers + +------+ + | Care Classics Professor Name | Role | Phone | + +------+ + | Juan F Whitley MD | PCP | | + +------+ + Reason for Visit Auth/Cert +--------+--------+ + + + + | Status | Reason | Specialty | Diagnoses / | Referred By | Referred To | | | | | Procedures | Contact | Contact | +--------+--------+ + + + + | | | | Diagnoses | | [facility] 3rd | | | | | peritonitis | | Floor [address] | | | | | | | Pavilion | | | | | | | [address] | | | | | | | [address] | | | | | | | [place], [place] | | | | | | | [address] Phone: | | | | | | | [phone] | | | | | | | Fax: | | | | | | | [phone] | +--------+--------+ + + + + Encounter Details +--------+ + + + + | Date | Type | Department | Care Team | Description | +--------+ + + + + | 12/24/ | Hospital | [facility] | Espinoza, | Abdominal pain, | | 2019 - | Encounter | [facility] | MD [address] | unspecified | | | | Floor [address] | [address] | abdominal location; | | 12/27/ | | Pavilion [address] | [place] [address] | End-stage renal | | 2019 | | [address]vd [place], [place] | [phone] | disease on | | | | [address] | | peritoneal dialysis | | | | | Hilda Edwards DO | ([facility]); Anemia in | | | | | [address] | ESRD (end-stage | | | | | [place] [address] | renal disease) | | | | | [phone] | ([facility]); | | | | | | Hyperphosphatemia; | | | | | | Hypoalbuminemia | +--------+ + + + + Social History + +-------+ +--------+ + | Tobacco Use | Types | Packs/Day | Years | Date | | | | | Used | | + +-------+ +--------+ + | Former Smoker | | 0.25 | | Quit: 10/10/2015 | + +-------+ +--------+ + + +---+---+---+ | Smokeless Tobacco: | | | | | Never Used | | | | + +---+---+---+ + + +---------+ + | Alcohol Use | Drinks/We | oz/Week | Comments | | | ek | | | + + +---------+ + | No | 0 | 0.0 | occ | [...] on file | | + + + as of this encounter Last Filed Vital Signs + + + + | Vital Sign | Reading | Time Taken | + + + + | Blood Pressure | 104/63 | 12/27/2018 11:19 AM PST | + + + + | Pulse | 74 | 12/27/2018 11:19 AM PST | + + + + | Temperature | 36.8 C (98.3 F) | 12/27/2018 11:19 AM PST | + + + + | Respiratory Rate | 19 | 12/27/2018 11:19 AM PST | + + + + | Oxygen Saturation | 97% | 12/27/2018 11:19 AM PST | + + + + | Inhaled Oxygen | - | - | | Concentration | | | + + + + | Weight | 81.3 kg (179 lb 3.7 | 12/26/2018 7:00 AM PST | | | oz) | | + + + + | Height | 157.5 cm (5' 2") | 12/24/2018 11:23 PM PST | + + + + | Body Mass Index | 32.78 | 12/26/2018 7:00 AM PST | + + + + in this encounter Discharge Summaries Hilda Edwards DO - 12/27/2018 12:45 PM PSTFormatting of this note may be different from the original. Patient: Ramona Oconnor : 1980 Date of Admission: 12/24/2018 Date of Discharge: 12/27/2018 Treatment Team: Consulting Physician: Santos Chi MD Consulting Physician: Tyler Kaye DO Admitting Provider: oJse Doran MD Discharging Provider: Hilda Edwards DO Discharge Diagnoses: Principal Problem: Abdominal pain Active Problems: ESRD on peritoneal dialysis Peritonitis due to infected peritoneal dialysis catheter (HCC) Resolved Problems: * No resolved hospital problems. * Procedures Performed: Chief Complaint: No chief complaint on file. Hospital Course: Ramona Oconnor is a 38 y.o. female who was admitted on 12/24/2018 with culture negative PD associated peritonitis. Ms. Oconnor is a 38 y.o.femalewith significant past medical history of ESRD on peritone al dialysis, chronic nausea, and hypertension, who presented to the ED with abdominal pain, nausea and vomiting. She was recently discharged on 12/10/18 after being hospitalized for cu lture negative PD associated peritonitis. She was transferred from [place] for [facility]. In ED at [facility] CT abd was performed, imaging did not show any acute GI pro cess, known ovarian mass of unchanged size present. Peritoneal fluid was drawn and fluid ravinder dies show 109 WBC/mm3. As >100 cells consistent with PD catheter related peritonitis, will c onsider this relapse of PD peritonitis. Patient was treated with Fortez and vancomycin. She will go home on antibiotics per nephrology dosing with PD. Her abdominal pain and nausea valerio ear to be very chronic in nature. She underwent EGD which showed diffuse mild gastritis in 11/2016, she has been compliant with PPI. It is possible that she is having intermittent tors ion due to ovarian mass, and it was discussed with patient the need for OB follow up, guadalupe r she had no acute pain while inpatient. Patient also notes a significant amount of gas pain , and her symptoms improve with passing gas and bowel movements. She was discharged home in stable condition. Relapse of PD associated peritonitis - Discussed with Dr. Chi, for PD any cell count >100 is considered positive, patient's PD fluid came back with 109 WBCs/mm3. Last admission patient had nucleated cell count of 151, was treated with cefdinir and flagyl for culture negative peritonitis. - S/P ceftazidime and vancomycin while inpatient - Continue antibiotic dosing with PD per nephrology Hypertension. - Will continue Norvasc 2.5 mg daily Abdominal pain, resolved, possibly 2/2 peritonitis; also possibly constipation vs gas pain - Lipase is within normal limits, discussed with patient, upon further evaluation patient d oes admit to significant pain with gas. Pain improves with ambulation and with passing gas. Encouraged ambulation and start simethicone prn and with meals. Follow up outpatient for OB follow up for ovarian mass. End-stage renal disease on peritoneal dialysis. - Nephrology following. Will continue Renvela. Daily PD. Discharge Exam and Data: Vital Signs: BP 104/63 (BP Location: Left upper arm) | Pulse 74 | Temp 98.3 F (36.8 C) (Oral) | R enmanuel 19 | Ht 1.575 m (5' 2") | Wt 81.3 kg (179 lb 3.7 oz) | SpO2 97% | ? No | BMI 32.78 kg/m Constitutional: She is oriented to person, place, and time. She appears well-developedand well-nourished. HENT: Head: Normocephalicand atraumatic. Eyes: Pupils are equal, round, and reactive to light. EOMare normal. Neck: Normal range of motion. Neck supple. Cardiovascular:Regular rate, normal rhythm. No murmurs Pulmonary/Chest: Effort normaland breath sounds normal. No respiratory distress. She has no wheezes. Abdominal: Soft. Bowel sounds are normal. No tenderness, no guarding/rebound. PD catheter p resent. Musculoskeletal: Normal range of motion. She exhibits no edema. Neurological: She is alertand oriented to person, place, and time. No cranial nerve defic it. Skin: Skin is warmand dry. No erythema. Psychiatric: She has a normal mood and affect. Recent Labs Recent Labs Lab 12/27/18 0544 WBC 13.46* HGB 12.7 HCT 38.4 PLT 388 Recent Labs Lab 12/27/18 0544 NA 135 K 3.2* CL 97* CO2 20* BUN 27* CREATININE 14.6* No results for input(s): INR in the last 168 hours. Recent Radiology Results No results found. No discharge procedures on file. Outstanding Issues: Chronic abdominal pain, chronic nausea. Discharge Information: [place]: [place] [address] [place] [address] Medication List CONTINUE taking these medications ALPRAZolam 0.5 MG tablet Refills: 0 Commonly known as: XANAX amLODIPine 2.5 MG tablet Refills: 0 Commonly known as: NORVASC cefdinir 300 MG capsule QTY: 9 capsule Refills: 0 Commonly known as: OMNICEF Take 1 capsule by mouth daily. clonazePAM 0.5 MG tablet Refills: 0 Commonly known as: KlonoPIN ergocalciferol 65460 units capsule Refills: 0 Commonly known as: DRISDOL gentamicin 0.1 % ointment QTY: 15 g Refills: 1 Commonly known as: GARAMYCIN Apply topically 3 (three) times daily. HYDROcodone-acetaminophen 5-325 MG per tablet QTY: 10 tablet Refills: 0 Commonly known as: NORCO Take 1 tablet by mouth every 4 (four) hours as needed. LORazepam 1 MG tablet Refills: 0 Commonly known as: ATIVAN metroNIDAZOLE 500 MG tablet QTY: 19 tablet Refills: 0 Commonly known as: FLAGYL Take 1 tablet by mouth every 12 (twelve) hours. ondansetron 8 MG tablet QTY: 30 tablet Refills: 11 Commonly known as: ZOFRAN Take 1 tablet by mouth every 8 (eight) hours as needed for Nausea. potassium chloride SA 20 MEQ tablet QTY: 30 tablet Refills: 3 Commonly known as: K-DUR,KLOR-CON Take 1 tablet by mouth daily. * sevelamer 800 MG tablet QTY: 180 tablet Refills: 1 Commonly known as: RENVELA Take 2 tablets by mouth 3 (three) times daily with meals. * sevelamer 800 MG tablet Refills: 0 Commonly known as: RENVELA zolpidem 5 MG tablet QTY: 10 tablet Refills: 0 Commonly known as: AMBIEN Take 1 tablet by mouth nightly as needed for Sleep (may repeat once in 1 hr if initial dose not effective). * This list has 2 medication(s) that are the same as other medications prescribed for you. Read the directions carefully, and ask your doctor or other care provider to review them wit h you. You might also be taking other medications not listed above. If you have questions about an y of your other medications, talk to the person who prescribed them or your Primary Care Pro vider. Disposition: Home Condition: Fair Code Status: Full Code Discharge took 40 minutes, to include final examination, discussion of admission, and prepa ration of prescriptions, instructions for on-going care, follow-up and documentation of disc harge summary. Hilda Edwards 12:52 PM in this encounter Discharge Instructions Phillip Gonzalez, RN - 12/27/2018Formatting of this note may be different from the origin al. Unknown Causes of Abdominal Pain(Female) The exact cause of your abdominal (stomach) pain is not clear. This does not mean that this is something to worry about. Everyone likes to know the exact cause of the problem, but sudarshan etimes with abdominal pain, there is no clear-cut cause, and this could be a good thing. The good news is that your symptoms can be treated, and you will feel better. Your condition does not seem serious now; however, sometimes the signs of a serious problem may take more time to appear. For this reason,it is important for you to watch for any ne w symptoms, problems,or worsening of your condition. Over the next few days, the abdominal pain may come and go, or be continuous. Other common symptoms can include nausea and vomiting. Sometimes it can be difficult to tell if you feel nauseous, you may just feel bad and not associate that feeling with nausea. Constipation, di arrhea, and a fever may go along with the pain. The pain may continue even if treated correctly over the following days. Depending on how t hings go, sometimes the cause can become clear and may require further or different treatmen t. Additional evaluations, medications, or tests may also be needed. Home care Your healthcare provider may prescribe medicine for pain, symptoms, or an infection. Foll ow the healthcare provider's instructions for taking these medicines. General care Rest as much as you can until your next exam. No strenuous activities. Try to find positions that ease discomfort. A small pillow placed on the abdomen may hel p relieve pain. Something warm on your abdomen (such as a heating pad) may help, but be careful not to b urn yourself. Diet Do not force yourself to eat, especially if having cramps, vomiting, or diarrhea. Water is important so you do not get dehydrated. Soup may also be good. Sports drinks ma y also help, especially if they are not too acidic. Make sure you don't drink sugary drinks as this can make things worse. Take liquids in small amounts. Do not guzzle them. Caffeine sometimes makes the pain and cramping worse. Avoid dairy products if you have vomiting or diarrhea. Don't eat large amounts at a time. Wait a few minutes between bites. Eat a diet low in fiber (called a low-residue diet). Foods allowed include refined bread s, white rice, fruit and vegetable juices without pulp, tender meats. These foods will pass more easily through the intestine. Avoid whole-grain foods, whole fruits and vegetables, meats, seeds and nuts, fried or fa tty foods, dairy, alcohol and spicy foods until your symptoms go away. Follow-up care Follow up with your healthcare provider, or as advised, if your pain does not begin to impr ove in the next 24 hours. Call [phone] if any of these occur: Trouble breathing Confusion Fainting or loss of consciousness Rapid heart rate Seizure When to seek medical advice Call your healthcare provider right away if any of these occur: Pain gets worse or moves to the right lower abdomen New or worsening vomiting or diarrhea Swelling of the abdomen Unable to pass stool for more than3 days Fever of 100.4F (38C) or higher, or as directed by your healthcare provider. Blood in vomit or bowel movements (dark red or black color) Jaundice (yellow color of eyes and skin) Weakness, dizziness Chest, arm, back, neck or jaw pain Unexpected vaginal bleeding or missed period Can't keep down liquids or water and are getting dehydrated Date Last Reviewed: 11/08/201519994059-9970 [employer]. [address] [place] [address], [place] [address]. All righ ts reserved. This information is not intended as a substitute for professional medical care. Always follow your healthcare professional's instructions. Discharge Instructions for Chronic Kidney Disease (CKD) Chronic kidney disease can (CKD) happen because of many things. These include infections, d iabetes, high blood pressure, kidney stones, circulation problems, and reactions to medicine . Having kidneydisease means making many changes in your life. Learn as much as you can ab outit so that you can better adjust to these changes. It is important to remember that the main goal of treatment is to stop CKD from progressing to complete kidney failure. Treatmen ts may vary based on the progression of CKD. Always follow your healthcare provider's instru ctions on how to manage yourcondition. Here are some things you can do to help your condition. Diet changes Always discuss your diet with your healthcare provider before making any changes. Salt (sodium) in your diet Based on your condition, you may be told to eat 1,500 mg or less of sodium daily Limit processed foods such as: Frozen dinners and packaged meals Canned fish and meats Pickled foods Salted snacks Lunch meats Sauces Most cheeses Fast foods Don't add salt to your food while cooking or before eating at the table. Eat unprocessed foods to lower the sodium, such as: Fresh turkey and chicken Lean beef Unsalted tuna Fresh fish Fresh vegetables and fruits Season foods with fresh herbs, garlic, onions, citrus, flavored vinegar, and sodium-free spice blends instead of salt when cooking. Don'tusesalt substitutes that are high in potassium. Ask your healthcare provider or a registered dietitian whichsalt substitutes to use. Don't drinksoftened water, because of the sodium content. Make sure to read the label on bottled water for sodium content. Don't take xpop-fua-jjtdovr medicines that contain sodium bicarbonate or sodium carbonat e. Read labels carefully. Potassium in your diet Based on your condition, you may be told to eat less than 1,500 mg to 2,700 mg of potass ium daily. Always drain canned foods such as vegetables, fruits, and meats before serving. Don't eat whole-grain breads, wheat bran, and granolas. Don't eatmilk, buttermilk, and yogurt. Don't eat nuts, seeds, peanut butter, dried beans, and peas. Don't eat fig cookies, chocolate, and molasses. Don't usesalt substitutes that are high in potassium. Ask your healthcare provider or a registered dietitian whichsalt substitutes to use. Protein in your diet Based on your condition, your healthcare provider will talk with you about why you shoul d limitprotein in your diet. Cut back on protein. Eat less meat, milk products, yogurt, eggs, and cheese. Phosphorus in your diet Don'tdrink beer, cocoa, dark hoa, alina, chocolate drinks, and canned ice teas. Don't eat cheese, milk, ice cream, pudding, and yogurt. Don't eat liver (beef, chicken), organ meats, oysters, crayfish, and sardines. Don't eat beans (soy, kidney, black, garbanzo, and northern), peas (chick and split), br an cereals, nuts, and caramels. Eat small meals often that are high in fiber and calories. You may be told to limit how muc h fluid you drink. Other home care Try not to wear yourself out or get overly fatigued. Get plenty of rest and get moresleep at night. Move around and bend your legs to avoid getting blood clots when you rest for a long per iod of time. Weigh yourself every day. Do thisat the same time of day and in the same kind of cloth es. Keep a record of your daily weights. Take your medicines exactly as directed. Keep all medical appointments. Take steps to control high blood pressure or diabetes. Talk with your healthcare provide r for advice. Talk with your healthcare provider about dialysis. This procedure may helpif your rules examiner dorothy kidney disease is progressing to end stage renal disease. Follow-up care Follow up with your healthcare provider, or as advised. When to call your healthcare provider Call your healthcare provider right away if you have any of the following: Chest pain (call 911) Trouble eating or drinking Weight loss of more pozh4splfvh [id number] or more foyk1hfwtxy in7 days Little or no urine output Trouble breathing Muscle aches Jrhdlmo696.4F (38C) or higher, or as advised by your healthcare provider Blood in your urine or stool Bloody discharge from your nose, mouth, or ears Severe headache or a seizure Vomiting Swelling of legs or ankles Date Last Reviewed: 12/11/201619997555-1306 [employer]. [address] [place] [address], [place] [address]. All righ ts reserved. This information is not intended as a substitute for professional medical care. Always follow your healthcare professional's instructions. in this encounter Medications at Time of Discharge + + +---------+---------+ + + | Medication | Sig. | Disp. | Refills | Start | End Date | | | | | | Date | | + + +---------+---------+ + + | ALPRAZolam (XANAX) | Take 0.5 mg by mouth | | | | | | 0.5 MG tablet | nightly as needed | | | | | | | for Sleep. | | | | | + + +---------+---------+ + + | amLODIPine | Take 2.5 mg by mouth | | | | | | (NORVASC) 2.5 MG | daily. | | | | | | tablet | | | | | | + + +---------+---------+ + + | ergocalciferol | Take 50,000 Units by | | | | | | (DRISDOL) 62187 | mouth once a week. | | | | | | UNITS capsule | | | | | | + + +---------+---------+ + + | gentamicin | Apply topically 3 | 15 g | 1 | / | | | (GARAMYCIN) 0.1 % | (three) times daily. | | | 17 | | | ointment | | | | | | + + +---------+---------+ + + | | Take 1 tablet by | 10 | 0 | /08/29 | | | HYDROcodone-acetamin | mouth every 4 (four) | tablet | | 18 | | | ophen (NORCO) 5-325 | hours as needed. | | | | | | MG per tablet | | | | | | + + +---------+---------+ + + | LORazepam (ATIVAN) | Take 1 mg by mouth | | | | | | 1 MG tablet | every 8 (eight) | | | | | | | hours as needed for | | | | | | | Anxiety. | | | | | + + +---------+---------+ + + | ondansetron | Take 1 tablet by | 30 | 11 | 01/26/20 | | | (ZOFRAN) 8 MG tablet | mouth every 8 | tablet | | 17 | | | | (eight) hours as | | | | | | | needed for Nausea. | | | | | + + +---------+---------+ + + | potassium chloride | Take 1 tablet by | 30 | 3 | 03/09/20 | | | SA (HOLLY RIGGS) | mouth daily. | tablet | | 18 | 9 | | 20 MEQ tablet | | | | | | + + +---------+---------+ + + | sevelamer | Take 800 mg by mouth | | | | | | (RENVELA) 800 MG | 3 (three) times | | | | | | tablet | daily with meals. | | | | | + + +---------+---------+ + + | zolpidem (AMBIEN) | Take 1 tablet by | 10 | 0 | 03/09/20 | | | 5 MG tablet | mouth nightly as | tablet | | 18 | | | | needed for Sleep | | | | | | | (may repeat once in | | | | | | | 1 hr if initial dose | | | | | | | not effective). | | | | | + + +---------+---------+ + + | cefdinir (OMNICEF) | Take 1 capsule by | 9 | 0 | 12/11/19 | | | 300 MG | mouth daily. | capsule | | 19 | 9 | | capsuleIndications: | | | | | | | Enteritis and | | | | | | | Colitis | | | | | | + + +---------+---------+ + + | clonazePAM | Take 0.25 mg by | | | | | | (KLONOPIN) 0.5 MG | mouth daily as | | | | 9 | | tablet | needed for Anxiety. | | | | | + + +---------+---------+ + + | metroNIDAZOLE | Take 1 tablet by | 19 | 0 | 12/10/19 | | | (FLAGYL) 500 MG | mouth every 12 | tablet | | 19 | 9 | | tabletIndications: | (twelve) hours. | | | | | | Enteritis and | | | | | | | Colitis | | | | | | + + +---------+---------+ + + as of this encounter Progress Notes Tyler Kaye DO - 12/27/2018 10:07 AM PSTFormatting of this note may be different from the original. [facility] Service: Infectious Disease Progress Note Hospital Day: LOS: 2 days Post-Op Day: * No surgery found * SUBJECTIVE Patient Summary: 38 y.o. female with significant past medical history of end-stage r enal disease on peritoneal dialysis, gastroesophageal reflux disease, diverticulosis, painfu l ovarian cyst, dialysis associated nausea and vomiting who presents with recurrent abdomina l pain. I had seen this patient in September 2017 for an episode of abdominal pain which was ultimately attributed to an episode of gastritis after peritonitis was ruled out. More recen tly, the patient was seen by our service twice over the summer of 2017 for episodes of abdom inal pain at which times laboratory analysis did not confirm a suspected diagnosis of perito nitis. She was seen most recently in November by Dr. Deshpande for workup of culture-negative peritonitis, noting multiple prior workups with negative labs, and was treated with a course of oral Omnicef and metronidazole for 10 days. The patient returns to the hospital at this time with recurrent abdominal pain associated with nausea and vomiting. On this occasion, an tibiotics were withheld at the outside facility and were withheld here until after a periton eal fluid sample had been obtained. Following collection of cultures, the patient was starte d on ceftazidime and vancomycin. CC: Abdominal pain Chart reviewed: No new events. Subjective The patient reports she has continued to require intravenous pain medication about every 6 hours for abdominal pain. She tried taking oral pain medication last evening, but vomited it up. She has been told that she can discharge home today. Arrangements are being made for an tibiotics through peritoneal dialysis. ROS No fever, chills sweats. No nausea, vomiting or diarrhea. No rashes or pruritis. No oral pa in. Scheduled Medications aluminum-magnesium hydroxide-simethicone 30 mL Oral 4x Daily AC & HS amLODIPine 2.5 mg Oral Daily ergocalciferol 50,000 Units Oral Weekly famotidine 20 mg Oral Daily heparin (porcine) 5000 unit/0.5mL 5,000 Units Subcutaneous 2 times per day potassium chloride SA 20 mEq Oral Daily with breakfast sevelamer 1,600 mg Oral TID WC Continuous Infusions cefTAZidime Stopped (12/27/18 0738) famotidine vancomycin PRN Medications acetaminophen OR acetaminophen, ALPRAZolam, HYDROcodone-acetaminophen, HYDROmorphone OR HYDROmorphone, qijosslsn-rnpdyr-xgajoeainc, ondansetron OR ondansetron, polyethylen e glycol, simethicone, zolpidem OBJECTIVE Vital Signs: BP 92/58 (BP Location: Left upper arm) | Pulse 112 | Temp 98.1 F (36.7 C) (Oral) | R enmanuel 18 | Ht 1.575 m (5' 2") | Wt 81.3 kg (179 lb 3.7 oz) | SpO2 94% | ? No | BMI 32.78 kg/m Temp (24hrs), Av F (36.7 C), Min:97.4 F (36.3 C), Max:98.3 F (36.8 C) Exam: Const: Vitals reviewed. No acute distress Skin: No rashes, no edema ENT: No thrush. Lungs: CTAB, no rales or wheezes Heart: RRR, no murmur Abd: soft, NT, + bowel sounds DATA CBC: Lab Results Component Value Date WBC 13.46 (H) 12/27/2018 RBC 4.32 12/27/2018 HGB 12.7 12/27/2018 HCT 38.4 12/27/2018 MCV 88.9 12/27/2018 MCH 29.3 12/27/2018 MCHC 33.0 12/27/2018 RDW 48.1 12/27/2018 PLT 388 12/27/2018 MPV 8.2 12/27/2018 DIFFTYPE AUTOMATED 12/26/2018 CMP: Lab Results Component Value Date NA 135 12/27/2018 K 3.2 (L) 12/27/2018 CL 97 (L) 12/27/2018 CO2 20 (L) 12/27/2018 ANIONGAP 21 (H) 12/27/2018 GLUF 96 12/27/2018 BUN 27 (H) 12/27/2018 CREATININE 14.6 (H) 12/27/2018 BCR 2 12/27/2018 CA 8.7 12/27/2018 CA 9.0 09/07/2017 PROT 6.6 12/25/2018 ALB 3.9 12/26/2018 GLOB 4.2 12/25/2018 BILITOT 0.3 12/25/2018 ALP 76 12/25/2018 AST 16 12/25/2018 ALT 15 12/25/2018 EGFR 3 (L) 12/27/2018 Microbiology: Blood cultures negative 2 so far. Peritoneal fluid cell count is 109 with 9 2 percent neutrophils, culture pending. PROBLEM LIST Principal Problem: Abdominal pain Active Problems: ESRD on peritoneal dialysis Peritonitis due to infected peritoneal dialysis catheter (HCC) ASSESSMENT & PLAN Abdominal pain / Peritonitis due to infected peritoneal dialysis catheter (06/04/2017) The patient has had a rapid relapse following a recent treatment course, which is suggest elizabeth of infection of the catheter itself. I am hoping that we will isolate a causative organi sm, as cultures have been collected prior to starting antibiotics, although cultures are aga in negative. I would favor treating this hypodensity antibiotics, Fortaz and vancomycin, for a total of 14 days, therefore through January 06. Additional relapse would necessitate rem oval of her peritoneal dialysis catheter. ESRD on peritoneal dialysis (06/04/2017) Antibiotics have been dosed accordingly. For discharge, I would defer to nephrology for o rdering of intraperitoneal therapy. Disposition: Anticipate discharge today. It is reasonable to give one dose each of Fortaz and vancomycin intravenously today, then continue with intraperitoneal administration starti ng on Friday. Discussed with Dr. Chi. Code Status: Full Code TYLER KAYE DO 12/27/2018Minerva Cruz, [facility] - 12/27/2018 7:09 AM PSTClinical Pharmacy Note: Vancomycin Day 3 Vanco random level today 20.5 mcg/mL; higher than goal 15 to 20 mcg/mL. No dose today. Next vanco trough due tomorrow with AM labs. Minerva Cruz, Pharmacist 12/27/2018 7:06 AM Hilda Edwards, DO - 12/26/2018 4:41 PM PSTFormatting of this note may be different fro m the original. [facility] Service: Hospitalist Progress Note Hospital Day: LOS: 1 day Post-Op Day: * No surgery found * SUBJECTIVE Patient Summary: The patient is a 38 y.o.femalewith significant past medical history o f End-stage renal disease, on peritoneal dialysis, hypertension, presented to the ED with abdominal pain, nausea and vomiting. She was recently discharged on 12/10/18 after being hos pitalized for culture negative PD associated peritonitis. Peritoneal fluid was drawn and flu id studies show 109 WBC/mm3. As >100 cells consistent with PD catheter related peritoniti s, will consider this relapse of PD peritonitis. Events Overnight: - Patient notes subjective improvement in abdominal pain, unclear if pain is entirely secon piyush to peritonitis. Patient describes LUQ pain with associated gas. Will try adding simethi cone/maloox with meals. Vitals are stable overnight. Leukocytosis starting to improve. Scheduled Medications aluminum-magnesium hydroxide-simethicone 30 mL Oral 4x Daily AC & HS amLODIPine 2.5 mg Oral Daily ergocalciferol 50,000 Units Oral Weekly famotidine 20 mg Oral Daily heparin (porcine) 5000 unit/0.5mL 5,000 Units Subcutaneous 2 times per day potassium chloride SA 20 mEq Oral Daily with breakfast sevelamer 1,600 mg Oral TID WC Continuous Infusions cefTAZidime 1 g (12/26/18 0628) famotidine vancomycin PRN Medications acetaminophen OR acetaminophen, ALPRAZolam, HYDROcodone-acetaminophen, HYDROmorphone OR HYDROmorphone, jalxnvfrz-aiopdc-xtesojkhhw, ondansetron OR ondansetron, polyethylen e glycol, simethicone, zolpidem OBJECTIVE Vital Signs: BP 102/51 (BP Location: Right upper arm) | Pulse 71 | Temp 98 F (36.7 C) (Oral) | Re sp 18 | Ht 1.575 m (5' 2") | Wt 81.3 kg (179 lb 3.7 oz) | SpO2 97% | ? No | BMI 32.78 kg/m Constitutional: She is oriented to person, place, and time. She appears well-developedand well-nourished. HENT: Head: Normocephalicand atraumatic. Eyes: Pupils are equal, round, and reactive to light. EOMare normal. Neck: Normal range of motion. Neck supple. Cardiovascular: Regular rate, normal rhythm. No murmurs Pulmonary/Chest: Effort normaland breath sounds normal. No respiratory distress. She has no wheezes. Abdominal: Soft. Bowel sounds are normal. No tenderness, no guarding/rebound. PD catheter p resent. Musculoskeletal: Normal range of motion. She exhibits no edema. Neurological: She is alertand oriented to person, place, and time. No cranial nerve defic it. Skin: Skin is warmand dry. No erythema. Psychiatric: She has a normal mood and affect. DATA CBC: Lab Results Component Value Date WBC 12.25 (H) 12/26/2018 RBC 3.68 (L) 12/26/2018 HGB 10.9 (L) 12/26/2018 HCT 32.3 (L) 12/26/2018 MCV 87.6 12/26/2018 MCH 29.6 12/26/2018 MCHC 33.8 12/26/2018 RDW 48.1 12/26/2018 PLT 404 (H) 12/26/2018 MPV 7.7 12/26/2018 DIFFTYPE AUTOMATED 12/26/2018 BMP: Lab Results Component Value Date NA 141 12/26/2018 K 3.5 12/26/2018 CL 98 (L) 12/26/2018 CO2 23 12/26/2018 ANIONGAP 24 (H) 12/26/2018 GLUF 94 12/26/2018 BUN 22 12/26/2018 CREATININE 13.11 (H) 12/26/2018 BCR 2 12/25/2018 CA 8.3 (L) 12/26/2018 CA 9.0 09/07/2017 EGFR 3 (L) 12/26/2018 Magnesium: Lab Results Component Value Date MG 3.0 (H) 12/25/2018 Phosphorus: Lab Results Component Value Date PHOS 8.7 (H) 12/26/2018 PROBLEM LIST Principal Problem: Abdominal pain Active Problems: ESRD on peritoneal dialysis Peritonitis due to infected peritoneal dialysis catheter (HCC) ASSESSMENT & PLAN Relapse of PD associated peritonitis - Discussed with Dr. Chi, for PD any cell count >100 is considered positive, patient's PD fluid came back with 109 WBCs/mm3. Last admission patient had nucleated cell count of 151, was treated with cefdinir and flagyl for culture negative peritonitis. - Continue ceftazidime 2 g IV Q48H - Continue vancomycin per pharmacy - Discussed case with ID Dr. Kaye, appreciate valuable input. Will continue current antibio tics and wait for cultures. Hypertension. Will continue Norvasc 2.5 mg daily Abdominal pain, resolved, possibly 2/2 peritonitis; also possibly constipation vs gas pain - Lipase is within normal limits, discussed with patient, upon further evaluation patient d oes admit to significant pain with gas. Pain improves with ambulation and with passing gas. Encouraged ambulation and start simethicone prn and with meals. End-stage renal disease on peritoneal dialysis. - Nephrology following. Will continue Renvela. Daily PD. Anxiety. Will continue Ativan prn. Disposition: Inpatient Code Status: Full Code Hilda Edwards DO 12/26/2018SpHilda pavon DO - 12/25/2018 3:53 PM PSTFormatting of this note may be diffe rent from the original. [facility] Service: Hospitalist Progress Note Hospital Day: LOS: 0 days Post-Op Day: * No surgery found * SUBJECTIVE Patient Summary: The patient is a 38 y.o.femalewith significant past medical history o f End-stage renal disease, on peritoneal dialysis, hypertension, presented to the ED with abdominal pain, nausea and vomiting. She was recently discharged on 12/10/18 after being hos pitalized for culture negative PD associated peritonitis. Events Overnight: - Peritoneal fluid has been drawn and fluid studies show >100 cells consistent with PD cath eter related peritonitis, unclear if new infection or previous infection incompletely treate d - Nephrology Dr. Chi consulted for PD and help with antibiotic management - Patient notes good improvement in abdominal pain Scheduled Medications amLODIPine 2.5 mg Oral Daily [START ON 12/26/2018] ergocalciferol 50,000 Units Oral Weekly famotidine 20 mg Oral Daily heparin (porcine) 5000 unit/0.5mL 5,000 Units Subcutaneous 2 times per day potassium chloride SA 20 mEq Oral Daily with breakfast sevelamer 1,600 mg Oral TID WC Continuous Infusions [START ON 12/26/2018] cefTAZidime famotidine [START ON 12/26/2018] vancomycin PRN Medications acetaminophen OR acetaminophen, ALPRAZolam, HYDROcodone-acetaminophen, HYDROmorphone OR HYDROmorphone, nmhbavfco-cnqbsq-zwqviijtpb, ondansetron OR ondansetron, polyethylen e glycol, zolpidem OBJECTIVE Vital Signs: BP 117/75 | Pulse 79 | Temp 97.9 F (36.6 C) (Oral) | Resp 16 | Ht 1.575 m (5' 2") | Wt 80.3 kg (177 lb 0.5 oz) | SpO2 96% | ? No | BMI 32.38 kg/m Constitutional: She is oriented to person, place, and time. She appears well-developedand well-nourished. HENT: Head: Normocephalicand atraumatic. Eyes: Pupils are equal, round, and reactive to light. EOMare normal. Neck: Normal range of motion. Neck supple. Cardiovascular: Regular rate, normal rhythm. No murmurs Pulmonary/Chest: Effort normaland breath sounds normal. No respiratory distress. She has no wheezes. Abdominal: Soft. Bowel sounds are normal. No tenderness, no guarding/rebound. PD catheter p resent. Musculoskeletal: Normal range of motion. She exhibits no edema. Neurological: She is alertand oriented to person, place, and time. No cranial nerve defic it. Skin: Skin is warmand dry. No erythema. Psychiatric: She has a normal mood and affect. DATA CBC: Lab Results Component Value Date WBC 14.91 (H) 12/25/2018 RBC 3.56 (L) 12/25/2018 HGB 10.3 (L) 12/25/2018 HCT 31.9 (L) 12/25/2018 MCV 89.4 12/25/2018 MCH 29.0 12/25/2018 MCHC 32.4 12/25/2018 RDW 49.0 12/25/2018 PLT 386 12/25/2018 MPV 8.5 12/25/2018 DIFFTYPE MANUAL 12/25/2018 BMP: Lab Results Component Value Date NA 138 12/25/2018 K 2.9 (L) 12/25/2018 CL 97 (L) 12/25/2018 CO2 27 12/25/2018 ANIONGAP 17 12/25/2018 GLUF 95 12/25/2018 BUN 29 (H) 12/25/2018 CREATININE 14.3 (H) 12/25/2018 BCR 2 12/25/2018 CA 8.0 (L) 12/25/2018 CA 9.0 09/07/2017 EGFR 3 (L) 12/25/2018 Magnesium: Lab Results Component Value Date MG 3.0 (H) 12/25/2018 Phosphorus: Lab Results Component Value Date PHOS 6.1 (H) 12/08/2018 PROBLEM LIST Principal Problem: Abdominal pain Active Problems: ESRD on peritoneal dialysis Peritonitis due to infected peritoneal dialysis catheter (HCC) ASSESSMENT & PLAN PD associated peritonitis - Discussed with Dr. Chi, for PD any cell count >100 is considered positive, patient's PD fluid came back with 109 WBCs/mm3 - Nephrology following - Continue ceftazidime 2 g IV Q48H - Continue vancomycin Hypertension. Will continue Norvasc 2.5 mg daily Abdominal pain, resolved - Lipase is within normal limits, unclear etiology End-stage renal disease on peritoneal dialysis. Nephrology consulted. Will continue Renvela . Anxiety. Will continue Ativan prn. Disposition: Inpatient Code Status: Full Code Hilda EdwardsDO 12/25/2018in this encounter Plan of Treatment Not on fileas of this encounter Procedures + +--------+ + + + | Procedure Name | Priori | Date/Time | Associated Diagnosis | Comments | | | ty | | | | + +--------+ + + + | PERITONEAL DIALYSIS | JONG | 12/27/2018 | | Results for this | | (CAPD) | | 9:45 AM | | procedure are in the | | | | PST | | results section. | + +--------+ + + + | CBC W/NO DIFF | Routin | 12/27/2018 | | Results for this | | | e | 5:44 AM | | procedure are in the | | | | PST | | results section. | + +--------+ + + + | VANCOMYCIN, RANDOM | Routin | 12/27/2018 | | Results for this | | | e | 5:44 AM | | procedure are in the | | | | PST | | results section. | + +--------+ + + + | BASIC METABOLIC | Routin | 12/27/2018 | | Results for this | | PANEL | e | 5:44 AM | | procedure are in the | | | | PST | | results section. | + +--------+ + + + | PERITONEAL DIALYSIS | JONG | 12/26/2018 | | Results for this | | (CAPD) | | 9:36 AM | | procedure are in the | | | | PST | | results section. | + +--------+ + + + | CBC W/AUTO DIFF | JONG | 12/26/2018 | | Results for this | | (REFLEX TO MANUAL) | | 8:13 AM | | procedure are in the | | | | PST | | results section. | + +--------+ + + + | EKG STANDARD 12 LEAD | Routin | 12/26/2018 | | Results for this | | | e | 7:46 AM | | procedure are in the | | | | PST | | results section. | + +--------+ + + + | VANCOMYCIN, RANDOM | Routin | 12/26/2018 | | Results for this | | | e | 5:38 AM | | procedure are in the | | | | PST | | results section. | + +--------+ + + + | RENAL FUNCTION PANEL | JONG | 12/26/2018 | | Results for this | | | | 5:38 AM | | procedure are in the | | | | PST | | results section. | + +--------+ + + + | FLUID CULT W/GRAM | Timed | 12/25/2018 | | Results for this | | STAIN | | 2:50 AM | | procedure are in the | | | | PST | | results section. | + +--------+ + + + | BODY FLUID CELL | STAT | 12/25/2018 | | Results for this | | COUNT | | 2:50 AM | | procedure are in the | | | | PST | | results section. | + +--------+ + + + | BLOOD CULTURE, SET 2 | Timed | 12/25/2018 | | Results for this | | | | 2:09 AM | | procedure are in the | | | | PST | | results section. | + +--------+ + + + | CBC W/AUTO DIFF | Routin | 12/25/2018 | | Results for this | | (REFLEX TO MANUAL) | e - AM | 2:08 AM | | procedure are in the | | | | PST | | results section. | + +--------+ + + + | MAGNESIUM | Routin | 12/25/2018 | | Results for this | | | e - AM | 2:08 AM | | procedure are in the | | | | PST | | results section. | + +--------+ + + + | COMPREHENSIVE | Routin | 12/25/2018 | | Results for this | | METABOLIC PANEL | e - AM | 2:08 AM | | procedure are in the | | | | PST | | results section. | + +--------+ + + + | BLOOD CULTURE, SET 1 | Timed | 12/25/2018 | | Results for this | | | | 1:59 AM | | procedure are in the | | | | PST | | results section. | + +--------+ + + + | MRSA BY PCR | Timed | 12/25/2018 | | Results for this | | | | 1:29 AM | | procedure are in the | | | | PST | | results section. | + +--------+ + + + in this encounter Results PERITONEAL DIALYSIS (CAPD) (12/27/2018 9:45 AM) + + + | Narrative | Performed At | + + + | Santos Chi MD 01/12/2019 2:32 PM Hospital Problem List: | | | Principal Problem: Abdominal pain Active Problems: ESRD | | | on peritoneal dialysis Peritonitis due to infected peritoneal | | | dialysis catheter (HCC) The patient says that she feels 'ok' | | | today. she denies any chest pain, dyspnea . her urine output is | | | noted. Admitted for Abdominal pain, nausea and vomiting UF | | | over night: 600 The following portions of the patient's history | | | were reviewed and updated as appropriate: laboratory data, | | | radiologic studies, allergies, current medications, and problem | | | list. Scheduled Meds: | | | aluminum-magnesium hydroxide-simethicone 30 mL Oral 4x Daily AC | | | & HS | | | amLODIPine 2.5 mg Oral Daily | | | ergocalciferol 50,000 Units Oral Weekly | | | famotidine 20 mg Oral Daily | | | heparin (porcine) 5000 unit/0.5mL 5,000 Units Subcutaneous 2 | | | times per day | | | potassium chloride SA 20 mEq Oral Daily with breakfast | | | sevelamer 1,600 mg Oral TID WC Continuous Infusions: | | | cefTAZidime 1 g (12/27/18 0554) | | | famotidine | | | vancomycin PRN Meds:.acetaminophen OR acetaminophen, | | | ALPRAZolam, HYDROcodone-acetaminophen, HYDROmorphone OR | | | HYDROmorphone, duxmtfcmt-femvsr-ajchchwfbh, ondansetron OR | | | ondansetron, polyethylene glycol, simethicone, zolpidem BP | | | 101/55 (BP Location: Right upper arm) | Pulse 88 | Temp 98.1 | | | F (36.7 C) (Oral) | Resp 18 | Ht 1.575 m (5' 2") | Wt | | | 81.3 kg (179 lb 3.7 oz) | SpO2 96% | ? No | | | | BMI 32.78 kg/m General appearance: Pleasant, not in acute | | | distress. Laying flat in bed, family in room. Lungs: Clear to | | | auscultation. There are no wheezes. Heart: Regular rate and | | | rhythm without any rub, gallop. no murmur. Abdominal exam: Soft | | | and mild tenderness in lower quadrants, left more than right. | | | Extremities: Warm to touch with no leg edema. There is no | | | cyanosis or clubbing. Neurological: Awake, alert, and oriented to | | | time, place, and person. Normal gross motor power. There is no | | | asterixis. Access : PD cath in place, site is benign Lab | | | Results Component Value Date BUN 27 (H) 12/27/2018 CREATININE | | | 14.6 (H) 12/27/2018 EGFR 3 (L) 12/27/2018 NA 135 12/27/2018 K | | | 3.2 (L) 12/27/2018 CL 97 (L) 12/27/2018 CO2 20 (L) 12/27/2018 | | | CA 8.7 12/27/2018 PHOS 8.7 (H) 12/26/2018 MG 3.0 (H) | | | 12/25/2018 ALB 3.9 12/26/2018 HGB 12.7 12/27/2018 I/O | | | last 3 completed shifts: In: 77832 [P.O.:250; Other:29125] Out: | | | 40165 [Emesis/NG output:200; Other:64320] Assessment: Ms. Oconnor | | | is a 38 y.o. female patient with ESRD on PD. Admitted for | | | Abdominal pain, nausea and vomiting Anemia of ESRD hypoalb | | | hyperphos Recommendations: Daily PD Plan additional doses of | | | vanco and ceftazidine today prior to d/c No acute EPO need Low | | | phos diet stressed Reinforce phos binder use Protein supplements | | | stressed Strict I/O and Daily Weights Encourage IS We | | | discussed the case with the primary team at the time of this | | | encounter. BALJIT Guerrier Addendum: I have seen | | | & personally examined the pt with Demar SMILEY; I have | | | discussed the case with him. I agree with his findings & | | | documentation. BALJIT Guerrier started the documentation. | | | Note, review of records, exam, recs, plan, discussions were | | | completed & approved by myself. I have made changes to the above | | | procedure note, where appropriate, and discussed the content and the | | | changes with the author on 04/26. Santos Chi MD | | + + + Basic metabolic panel (12/27/2018 5:44 AM) + + + + + | Component | Value | Ref Range | Performed At | + + + + + | SODIUM | 135 | 135 - 145 mmol/L | [facility] | | | | | [facility] | + + + + + | POTASSIUM | 3.2 (L)Comment: SPECIMEN | 3.5 - 4.9 mmol/L | [facility] | | | SLIGHTLY HEMOLYZED | | LABORATORY | + + + + + | CHLORIDE | 97 (L) | 99 - 109 mmol/L | [facility] | | | | | [facility] | + + + + + | CO2 | 20 (L) | 23 - 32 mmol/L | [facility] | | | | | [facility] | + + + + + | ANION GAP AGAP | 21 (H) | 5 - 20 mmol/L | [facility] | | | | | [facility] | + + + + + | GLUCOSE | 96Comment: SPECIMEN | 65 - 99 mg/dL | [facility] | | | SLIGHTLY HEMOLYZED | | LABORATORY | + + + + + | BUN | 27 (H) | 8 - 25 mg/dL | [facility] | | | | | LAB[facility] | + + + + + | CREATININE | 14.6 (H)Comment: | 0.50 - 1.00 mg/dL | [facility] | | | SPECIMEN SLIGHTLY | | LABORATORY | | | HEMOLYZED | | | + + + + + | BUN/CREAT | 2 | | [facility] | | | | | LAB[facility] | + + + + + | CALCIUM | 8.7 | 8.5 - 10.5 mg/dL | [facility] | | | | | [facility] | + + + + + | EGFR | 3 (L)Comment: GFR <60: | >60 mL/min/1.73m2 | [facility] | | | CHRONIC KIDNEY DISEASE, | | LABORATORY | | | IF FOUND OVER A 3 MONTH | | | | | PERIOD.GFR <15: KIDNEY | | | | | FAILURE.FOR | | | | | AMERICANS, MULTIPLY THE | | | | | CALCULATED GFR BY | | | | | 1.210.This eGFR is | | | | | calculated using the | | | | | MDRD IDMS traceable | | | | | equation.Testing | | | | | performed at [facility], [facility] [address] | | | | | [facility], | | | | | [place] [address] | | | + + + + + + + | Specimen | + + | Blood | + + + + + + + | Performing | Address | City/State/Zipcode | Phone Number | | Organization | | | | + + + + + | [facility] | [address] | [place] [address] | [phone] | | LABORATORY | [address] | | | + + + + + CBC w/no Diff (12/27/2018 5:44 AM) + + + + + | Component | Value | Ref Range | Performed At | + + + + + | WBC | 13.46 (H) | 3.80 - 11.00 K/uL | [facility] | | | | | LAB[facility] | + + + + + | RBC | 4.32 | 3.70 - 5.10 M/uL | [facility] | | | | | [facility] | + + + + + | HGB | 12.7 | 11.3 - 15.5 g/dL | [facility] | | | | | LAB[facility] | + + + + + | HCT | 38.4 | 34.0 - 46.0 % | [facility] | | | | | LAB[facility] | + + + + + | MCV | 88.9 | 80.0 - 100.0 fl | [facility] | | | | | LAB[facility] | + + + + + | MCH | 29.3 | 27.0 - 34.0 pg | [facility] | | | | | [facility] | + + + + + | MCHC | 33.0 | 32.0 - 35.5 g/dL | [facility] | | | | | LAB[facility] | + + + + + | RDW SD | 48.1 | 37 - 53 fl | [facility] | | | | | LABOR[facility] | + + + + + | PLT | 388 | 150 - 400 K/uL | [facility] | | | | | LAB[facility]AT[facility] | + + + + + | MPV | 8.2Comment: Testing | fl | [facility] | | | performed at [facility], [address] | | LABORATORY | | | [address], | | | | | [place] [address] | | | + + + + + + + + + + | Performing | Address | City/State/Zipcode | Phone Number | | Organization | | | | + + + + + | [facility] | [address] | [place] [address] | [phone] | | LABORATORY | [address] | | | + + + + + Vancomycin, random (12/27/2018 5:44 AM) + + + + + | Component | Value | Ref Range | Performed At | + + + + + | VANCOMYCIN,RANDOM | 20.5Comment: Testing | ug/mL | [facility] | | | performed at [facility];[address] | [address];[place], [place] | | | | | [address] | | | + + + + + + + | Specimen | + + | Blood | + + + + + + + | Performing | Address | City/State/Zipcode | Phone Number | | Organization | | | | + + + + + | [facility] | [address] | [place] [address] | | + + + + + PERITONEAL DIALYSIS ([facility]D) (12/26/2018 9:36 AM) + + + | Narrative | Performed At | + + + | Santos Chi MD 01/12/2019 2:31 PM Hospital Problem List: | | | Principal Problem: Abdominal pain Active Problems: ESRD | | | on peritoneal dialysis Peritonitis due to infected peritoneal | | | dialysis catheter (HCC) The patient says that she feels 'ok' | | | today. she denies any chest pain, dyspnea . her urine output is | | | noted. Admitted for Abdominal pain, nausea and vomiting UF | | | over night: 895 The following portions of the patient's history | | | were reviewed and updated as appropriate: laboratory data, | | | radiologic studies, allergies, current medications, and problem | | | list. Scheduled Meds: | | | amLODIPine 2.5 mg Oral Daily | | | ergocalciferol 50,000 Units Oral Weekly | | | famotidine 20 mg Oral Daily | | | heparin (porcine) 5000 unit/0.5mL 5,000 Units Subcutaneous 2 | | | times per day | | | potassium chloride SA 20 mEq Oral Daily with breakfast | | | sevelamer 1,600 mg Oral TID WC Continuous Infusions: | | | cefTAZidime 1 g (12/26/18627) | | | famotidine | | | vancomycin PRN Meds:.acetaminophen OR acetaminophen, | | | ALPRAZolam, HYDROcodone-acetaminophen, HYDROmorphone OR | | | HYDROmorphone, pcgevwjwp-tnqita-zvlefclfpa, ondansetron OR | | | ondansetron, polyethylene glycol, zolpidem BP (!) 86/49 (BP | | | Location: Left upper arm) | Pulse 73 | Temp 98.2 F (36.8 | | | C) (Oral) | Resp 14 | Ht 1.575 m (5' 2") | Wt 81.3 kg | | | (179 lb 3.7 oz) | SpO2 100% | ? No | BMI 32.78 | | | kg/m General appearance: Pleasant, not in acute distress. | | | Laying in bed, family in room. Lungs: Clear to auscultation. | | | There are no wheezes. Heart: Regular rate and rhythm without any | | | rub, gallop. no murmur. Abdominal exam: Soft and mild tenderness | | | in lower quadrants with normal bowel sounds. Extremities: Warm | | | to touch with no leg edema. There is no cyanosis or clubbing. | | | Neurological: Awake, alert, and oriented to time, place, and | | | person. Normal gross motor power. There is no asterixis. Access : | | | PD cath in place, site is benign Lab Results Component Value | | | Date BUN 29 (H) 12/25/2018 CREATININE 14.3 (H) 12/25/2018 | | | EGFR 3 (L) 12/25/2018 NA 138 12/25/2018 K 2.9 (L) 12/25/2018 | | | CL 97 (L) 12/25/2018 CO2 27 12/25/2018 CA 8.0 (L) 12/25/2018 | | | PHOS 6.1 (H) 12/08/2018 MG 3.0 (H) 12/25/2018 ALB 2.4 (L) | | | 12/25/2018 HGB 10.3 (L) 12/25/2018 I/O last 3 completed | | | shifts: In: 8243 [P.O.:200; Other:8043] Out: 8513 [Other:8513] | | | Assessment: Ms. Oconnor is a 38 y.o. female patient with ESRD on | | | PD. Admitted for Abdominal pain, nausea and vomiting Anemia of | | | ESRD hypoalb hyperphos Recommendations: Daily PD No acute EPO | | | need Protein supplements stressed Strict I/O and Daily Weights | | | Encourage IS We discussed the case with the primary team at the | | | time of this encounter. BALJIT Guerrier | | | Addendum: I have seen & personally examined the pt with Demar | | | Marquis SMILEY; I have discussed the case with him. I agree with his | | | findings & documentation. BALJIT Guerrier started the | | | documentation. Note, review of records, exam, recs, plan, | | | discussions were completed & approved by myself. I have made | | | changes to the above note, where appropriate, and discussed the | | | content and the changes with the author on 12/26. Add: KCl suppl as | | | ordered Low phos in diet stressed PD tomorrow Santos Chi, | | | MD | | + + + CBC w/auto diff (reflex to manual) (12/26/2018 8:13 AM) + + + + + | Component | Value | Ref Range | Performed At | + + + + + | WBC | 12.25 (H) | 3.80 - 11.00 K/uL | [facility] | + + + + + | RBC | 3.68 (L) | 3.70 - 5.10 M/uL | [facility] | + + + + + | HGB | 10.9 (L) | 11.3 - 15.5 g/dL | [facility] | + + + + + | HCT | 32.3 (L) | 34.0 - 46.0 % | [facility] | + + + + + | MCV | 87.6 | 80.0 - 100.0 fl | [facility] | + + + + + | MCH | 29.6 | 27.0 - 34.0 pg | [facility] | + + + + + | MCHC | 33.8 | 32.0 - 35.5 g/dL | [facility] | + + + + + | RDW SD | 48.1 | 37 - 53 fl | [facility] | + + + + + | PLT | 404 (H) | 150 - 400 K/uL | [facility] | + + + + + | MPV | 7.7 | fl | [facility] | + + + + + | DIFF TYPE | AUTOMATED | | [facility] | + + + + + | NEUTROPHILS | 82.96 | % | [facility] | + + + + + | LYMPHOCYTES | 9.80 | % | [facility] | + + + + + | MONOCYTES | 5.65 | % | [facility] | + + + + + | EOSINOPHILS | 1.08 | % | [facility] | + + + + + | BASOPHILS | 0.51 | % | [facility] | + + + + + | NEUTROPHILS ABS | 10.16 (H) | 1.90 - 7.40 K/uL | [facility] | + + + + + | LYMPHOCYTES ABS | 1.20 | 1.00 - 3.90 K/uL | [facility] | + + + + + | MONOCYTES ABS | 0.69 | 0.00 - 0.80 K/uL | [facility] | + + + + + | EOSINOPHILS ABS | 0.13 | 0.00 - 0.50 K/uL | [facility] | + + + + + | BASOPHILS ABS | 0.06Comment: Testing | 0.00 - 0.10 K/uL | [facility] | | | performed at [facility];[address] | | | | | [address];[place], [place] | | | | | [address] | | | + + + + + + + | Specimen | + + | Blood | + + + + + + + | Performing | Address | City/State/Zipcode | Phone Number | | Organization | | | | + + + + + | [facility] | [address] | [place] [address] | | + + + + + EKG STANDARD 12 LEAD (12/26/2018 7:46 AM) + + + + + | Component | Value | Ref Range | Performed At | + + + + + | Ventricular Rate | 66 | BPM | [facility] | + + + + + | Atrial Rate | 66 | BPM | [facility] | + + + + + | P-R Interval | 134 | ms | [facility] | + + + + + | QRS Duration | 92 | ms | [facility] | + + + + + | Q-T Interval | 450 | ms | [facility] | + + + + + | QTC Calculation | 471 | ms | [facility] | | (Bezet) | | | | + + + + + | Calculated P Matteson | 3 | degrees | [facility] | + + + + + | Calculated R Matteson | 35 | degrees | [facility] | + + + + + | Calculated T Matteson | 134 | degrees | [facility] | + + + + + | Diagnosis | Normal sinus | | [facility] | | | rhythmIncomplete right | | | | | bundle branch blockST & | | | | | T wave abnormality, | | | | | consider anterolateral | | | | | ischemiaProlonged | | | | | QTAbnormal ECGNo | | | | | previous ECGs | | | | | availableConfirmed by | | | | | SANTOS NATION MD ([id number]) | | | | | on 12/27/2018 7:44:23 PM | | | + + + + + + + + + + | Performing | Address | City/State/Zipcode | Phone Number | | Organization | | | | + + + + + | [facility] | [address] | [place] [address] | | + + + + + Renal function panel (12/26/2018 5:38 AM) + + + + + | Component | Value | Ref Range | Performed At | + + + + + | SODIUM | 141 | 135 - 145 mmol/L | [facility] | + + + + + | POTASSIUM | 3.5 | 3.5 - 4.9 mmol/L | [facility] | + + + + + | CHLORIDE | 98 (L) | 99 - 109 mmol/L | [facility] | + + + + + | CO2 | 23 | 23 - 32 mmol/L | [facility] | + + + + + | ANION GAP AGAP | 24 (H) | 5 - 20 mmol/L | [facility] | + + + + + | GLUCOSE | 94 | 65 - 99 mg/dL | [facility] | + + + + + | BUN | 22 | 8 - 25 mg/dL | [facility] | + + + + + | CREATININE | 13.11 (H) | 0.50 - 1.00 mg/dL | [facility] | + + + + + | CALCIUM | 8.3 (L) | 8.5 - 10.5 mg/dL | [facility] | + + + + + | Albumin | 3.9 | 3.6 - 5.0 g/dL | [facility] | + + + + + | PHOSPHORUS | 8.7 (H) | 2.3 - 4.8 mg/dL | [facility] | + + + + + | EGFR | 3 (L)Comment: GFR <60: | >60 mL/min/1.73m2 | [facility] | | | CHRONIC KIDNEY DISEASE, | | | | | IF FOUND OVER A 3 MONTH | | | | | PERIOD.GFR <15: KIDNEY | | | | | FAILURE.FOR | | | | | AMERICANS, MULTIPLY THE | | | | | CALCULATED GFR BY | | | | | 1.210.This eGFR is | | | | | calculated using the | | | | | MDRD [facility] traceable | | | | | equation.Testing | | | | | performed at [facility];[address] | | | | | [address];[place], [place] | | | | | [address] | | | + + + + + + + | Specimen | + + | Blood | + + + + + + + | Performing | Address | City/State/Zipcode | Phone Number | | Organization | | | | + + + + + | [facility] | [address] | [place] [address] | | + + + + + Vancomycin, random (12/26/2018 5:38 AM) + + + + + | Component | Value | Ref Range | Performed At | + + + + + | VANCOMYCIN,RANDOM | 22.7Comment: Testing | ug/mL | [facility] | | | performed at [facility];[address] | | | | | [address];[place], [place] | | | | | [address] | | | + + + + + + + | Specimen | + + | Blood | + + + + + + + | Performing | Address | City/State/Zipcode | Phone Number | | Organization | | | | + + + + + | [facility] | [address] | [place] [address] | | + + + + + Body fluid cell count (12/25/2018 2:50 AM) + + + + + | Component | Value | Ref Range | Performed At | + + + + + | FLUID TYPE | PERITONEAL | | [facility] | + + + + + | COLOR | COLORLESS | | [facility] | + + + + + | APPEARANCE | CLEAR | | [facility] | + + + + + | RBC'S | <57975 | /mm3 | [facility] | + + + + + | TOTAL NUCLEATED | 109 | /mm3 | [facility] | | CELLS | | | | + + + + + | NEUTROPHILS | 92 | % | [facility] | + + + + + | LYMPHOCYTES | 5 | % | [facility] | + + + + + | MONOCYTES/MACROPHAGE | 3 | % | [facility] | | S | | | | + + + + + | CELLS COUNTED | 100Comment: Testing | | [facility] | | | performed at [facility];[address] | | | | | [address];[place] | | | | | [address] | | | + + + + + + + | Specimen | + + | Other - Peritoneal | | [facility] | + + + + + + + | Performing | Address | City/State/Zipcode | Phone Number | | Organization | | | | + + + + + | [facility] | [address] | [place] [address] | | + + + + + C&S (12/25/2018 2:50 AM) + + + + + | Component | Value | Ref Range | Performed At | + + + + + | Specimen Description | PERITONEAL FLUID | | [facility] | | | | | [facility] | + + + + + | GRAM STAIN | WBC'S SEEN | | [facility] | | | | | [facility] | + + + + + | GRAM STAIN | NO ORGANISMS SEEN | | [facility] | | | | | [facility] | + + + + + | CULTURE | NO GROWTH 4 DAYS | | [facility] | | | | | [facility] | + + + + + + + | Specimen | + + | Body Fluid - | | Peritoneal Fluid | + + + + + + + | Performing | Address | City/State/Zipcode | Phone Number | | Organization | | | | + + + + + | [facility] | [address] | [place] [address] | [phone] | | LABORATORY | [address]vd[address] | | | + + + + + Blood Culture Set 2 (12/25/2018 2:09 AM) + + + + + | Component | Value | Ref Range | Performed At | + + + + + | Specimen Description | BLOOD | | [facility] | | | | | [facility] | + + + + + | SPECIAL REQUESTS | LEFT WRIST | | [facility] | + + + + + | CULTURE | NO GROWTH 6 DAYS | | [facility] | | | | | [facility] | + + + + + + + | Specimen | + + | Blood - Blood | + + + + + + + | Performing | Address | City/State/Zipcode | Phone Number | | Organization | | | | + + + + + | [facility] | [address] | [place] [address] | [phone] | | LABORATORY | Any. | | | + + + + + | [facility] | [address] | [place] [address] | | + + + + + Comprehensive Metabolic Panel (12/25/2018 2:08 AM) + + + + + | Component | Value | Ref Range | Performed At | + + + + + | SODIUM | 138 | 135 - 145 mmol/L | [facility] | | | | | [facility] | + + + + + | POTASSIUM | 2.9 (L) | 3.5 - 4.9 mmol/L | [facility] | | | | | [facility] | + + + + + | CHLORIDE | 97 (L) | 99 - 109 mmol/L | [facility] | | | | | [facility] | + + + + + | CO2 | 27 | 23 - 32 mmol/L | [facility] | | | | | [facility] | + + + + + | ANION GAP AGAP | 17 | 5 - 20 mmol/L | [facility] | | | | | [facility] | + + + + + | GLUCOSE | 95 | 65 - 99 mg/dL | [facility] | | | | | [facility] | + + + + + | BUN | 29 (H) | 8 - 25 mg/dL | [facility] | | | | | [facility] | + + + + + | CREATININE | 14.3 (H) | 0.50 - 1.00 mg/dL | [facility] | | | | | [facility] | + + + + + | BUN/CREAT | 2 | | [facility] | | | | | [facility] | + + + + + | CALCIUM | 8.0 (L) | 8.5 - 10.5 mg/dL | [facility] | | | | | [facility] | + + + + + | TOTAL PROTEIN | 6.6 | 6.3 - 8.2 g/dL | [facility] | | | | | [facility] | + + + + + | Albumin | 2.4 (L) | 3.6 - 5.0 g/dL | [facility] | | | | | [facility] | + + + + + | GLOBULIN | 4.2 | 1.3 - 4.9 g/dL | [facility] | | | | | [facility] | + + + + + | A/G | 0.6 (L) | 1.0 - 2.4 | [facility] | | | | | [facility] | + + + + + | TBIL | 0.3 | 0.1 - 1.5 mg/dL | [facility] | | | | | [facility] | + + + + + | ALK PHOS | 76 | 35 - 115 U/L | [facility] | | | | | [facility] | + + + + + | AST | 16 | 10 - 45 U/L | [facility] | | | | | [facility] | + + + + + | ALT | 15 | 10 - 65 U/L | [facility] | | | | | [facility] | + + + + + | EGFR | 3 (L)Comment: GFR <60: | >60 mL/min/1.73m2 | [facility] | | | CHRONIC KIDNEY DISEASE, | | LABORATORY | | | IF FOUND OVER A 3 MONTH | | | | | PERIOD.GFR <15: KIDNEY | | | | | FAILURE.FOR | | | | | AMERICANS, MULTIPLY THE | | | | | CALCULATED GFR BY | | | | | 1.210.This eGFR is | | | | | calculated using the | | | | | MDRD [facility] traceable | | | | | equation.Testing | | | | | performed at [facility], [address] | | | | [facility], | | | | | [place] [address] | | | + + + + + + + | Specimen | + + | Blood | + + + + + + + | Performing | Address | City/State/Zipcode | Phone Number | | Organization | | | | + + + + + | [facility] | [address] | [place] [address] | [phone] | | LABORATORY | [address]vd[address] | | | + + + + + Magnesium (12/25/2018 2:08 AM) + + + + + | Component | Value | Ref Range | Performed At | + + + + + | MAGNESIUM | 3.0 (H)Comment: Testing | 1.7 - 2.4 mg/dL | [facility] | | | performed at [facility], [address] | | LABORATORY | | | [facility], | | | | | [place] [address] | | | + + + + + + + | Specimen | + + | Blood | + + + + + + + | Performing | Address | City/State/Zipcode | Phone Number | | Organization | | | | + + + + + | [facility] | [address] | [place] [address] | [phone] | | LABORATORY | [address] | | | + + + + + CBC W/Auto Diff (Reflex to Manual) (12/25/2018 2:08 AM) + + + + + | Component | Value | Ref Range | Performed At | + + + + + | WBC | 14.91 (H) | 3.80 - 11.00 K/uL | [facility] | | | | | [facility] | + + + + + | RBC | 3.56 (L) | 3.70 - 5.10 M/uL | [facility] | | | | | [facility] | + + + + + | HGB | 10.3 (L) | 11.3 - 15.5 g/dL | [facility] | | | | | [facility] | + + + + + | HCT | 31.9 (L) | 34.0 - 46.0 % | [facility] | | | | | [facility] | + + + + + | MCV | 89.4 | 80.0 - 100.0 fl | [facility] | | | | | [facility] | + + + + + | MCH | 29.0 | 27.0 - 34.0 pg | [facility] | | | | | [facility] | + + + + + | MCHC | 32.4 | 32.0 - 35.5 g/dL | [facility] | | | | | [facility] | + + + + + | RDW SD | 49.0 | 37 - 53 fl | [facility] | | | | | [facility] | + + + + + | PLT | 386 | 150 - 400 K/uL | [facility] | | | | | [facility] | + + + + + | MPV | 8.5 | fl | [facility] | | | | | [facility] | + + + + + | DIFF TYPE | MANUAL | | [facility] | | | | | [facility] | + + + + + | Neutrophils Manual | 82 | % | [facility] | | | | | [facility] | + + + + + | MYELOCYTES | 1 | % | [facility] | | | | | [facility] | + + + + + | Lymphocytes Manual | 13 | % | [facility] | | | | | [facility] | + + + + + | Monocytes Manual | 4 | % | [facility] | | | | | [facility] | + + + + + | Neutrophils Absolute | 12.22 (H) | 1.90 - 7.40 K/uL | [facility] | | | | | [facility] | + + + + + | Myelocytes Absolute | 0.15 (H) | 0.00 K/uL | [facility] | | | | | [facility] | + + + + + | Lymphocytes Absolute | 1.94 | 1.00 - 3.90 K/uL | [facility] | | | | | [facility] | + + + + + | Monocytes Absolute | 0.60 | 0.00 - 0.80 K/uL | [facility] | | | | | [facility] | + + + + + | Platelet Estimate | INCREASED | | [facility] | | | | | [facility] | + + + + + | MORPHOLOGY | RBC AND PLT MORPHOLOGY | | [facility] | | | APPEAR NORMALComment: | | LABORATORY | | | Testing performed at | | | | | [facility], [address] | | | | | [place] | | | | | [address] | | | + + + + + + + | Specimen | + + | Blood | + + + + + + + | Performing | Address | City/State/Zipcode | Phone Number | | Organization | | | | + + + + + | [facility] | [address] | [place] [address] | [phone] | | LABORATORY | [address]vd[address] | | | + + + + + Blood Culture Set 1 (12/25/2018 1:59 AM) + + + + + | Component | Value | Ref Range | Performed At | + + + + + | Specimen Description | BLOOD | | [facility] | | | | | [facility] | + + + + + | SPECIAL REQUESTS | LAC | | [facility] | + + + + + | CULTURE | NO GROWTH 6 DAYS | | [facility] | | | | | [facility] | + + + + + + + | Specimen | + + | Blood - Blood | + + + + + + + | Performing | Address | City/State/Zipcode | Phone Number | | Organization | | | | + + + + + | [facility] | [address] | [place] [address] | [phone] | | LABORATORY | [address]vd[address] | | | + + + + + | [facility] | [address] | [place] [address] | | + + + + + MRSA by PCR (12/25/2018 1:29 AM) + + + + + | Component | Value | Ref Range | Performed At | + + + + + | SOURCE | NARES(NOSE) | | [facility] | + + + + + | MRSA PCR | NEGATIVEComment: Testing | NEGATIVE | [facility] | | | performed at [facility];[address];[place] | | | | | [address] | | | + + + + + + + | Specimen | + + | Nasopharyngeal - | | Nares(Nose) | + + + + + + + | Performing | Address | City/State/Zipcode | Phone Number | | Organization | | | | + + + + + | [facility] | [address] | [place] [address] | | + + + + + in this encounter Visit Diagnoses + + | Diagnosis | + + | Abdominal pain, unspecified abdominal location | + + | ESRD on peritoneal dialysis | + + | End stage renal disease | + + | Anemia in ESRD (end-stage renal disease) (HCC) | + + | Anemia in chronic kidney disease | + + | Hyperphosphatemia | + + | Disorders of phosphorus metabolism | + + | Hypoalbuminemia | + + | Other disorders of plasma protein metabolism | + + | Peritonitis due to infected peritoneal dialysis catheter (HCC) | + + Admitting Diagnoses + + | Diagnosis | + + | End-stage renal disease on peritoneal dialysis (HCC) | + + | End stage renal disease | + + | Abdominal pain, unspecified abdominal location | + + | peritonitis | + + Administered Medications + +--------+---------+------+------+------+ | Medication Order | MAR | Action | Dose | Rate | Site | | | Action | Date | | | | + +--------+---------+------+------+------+ + +---+ | acetaminophen (TYLENOL) | | | suppository 650 mg 650 mg, | | | Rectal, Every 6 Hours PRN, Mild | | | Pain (1-3), Fever, Starting Fri | | | 12/25/18 at 0050 | | + +---+ | | | + +---+ | acetaminophen (TYLENOL) tablet | | | 650 mg 650 mg, Oral, Every 6 | | | Hours PRN, Mild Pain (1-3), | | | Fever, Starting 12/25/18 at | | | 0050 | | + +---+ | | | + +---+ + +-------+ +--------+---+---+ | aluminum-magnesium | Given | | 30 mLs | | | | hydroxide-simethicone (MAALOX) | | 9 17:17 | | | | | 200-200-20 MG/5ML suspension 30 | | PST | | | | | mL 30 mL, Oral, 4 Times Daily | | | | | | | Before Meals & Nightly, First | | | | | | | dose on 12/26/18 at 1700 | | | | | | + +-------+ +--------+---+---+ +---+---+ | | | +---+---+ + +---------+ +-----+-------+---+ | cefTAZidime (FORTAZ) 1 g in | New Bag | | 1 g | 100 | | | sodium chloride (IV) 0.9 % 50 mL | | 9 06:28 | | mL/hr | | | IVPB 1 g, Intravenous, | | PST | | | | | Administer over 30 Minutes, Every | | | | | | | 24 Hours, First dose on Sat | | | | | | | 12/26/18 at 0530 | | | | | | + +---------+ +-----+-------+---+ +---------+ +-----+-------+---+ | New Bag | | 1 g | 100 | | | | 9 05:54 | | mL/hr | | | | PST | | | | +---------+ +-----+-------+---+ +---+---+ | | | +---+---+ + +---------+ +-----+-------+---+ | cefTAZidime (FORTAZ) 1 g in | New Bag | | 1 g | 100 | | | sodium chloride (IV) 0.9 % 50 mL | | 9 11:27 | | mL/hr | | | IVPB 1 g, Intravenous, | | PST | | | | | Administer over 30 Minutes, Once, | | | | | | | 12/27/18 at 1130, For 1 dose | | | | | | + +---------+ +-----+-------+---+ +---+---+ | | | +---+---+ + +---------+ +-----+-------+---+ | cefTAZidime (FORTAZ) 2 g in | New Bag | | 2 g | 100 | | | sodium chloride (IV) 0.9 % 50 mL | | 9 05:18 | | mL/hr | | | IVPB 2 g, Intravenous, | | PST | | | | | Administer over 30 Minutes, Every | | | | | | | 48 Hours, First dose on Fri | | | | | | | 12/25/18 at 0530, For 1 dose | | | | | | + +---------+ +-----+-------+---+ +---+---+ | | | +---+---+ + +-------+ +---------+---+---+ | ergocalciferol (DRISDOL) | Given | | 50,000 | | | | capsule 50,000 Units 50,000 | | 9 08:14 | Units | | | | Units, Oral, Weekly, First dose | | PST | | | | | on 12/26/18 at 0900 | | | | | | + +-------+ +---------+---+---+ + +---+ | | | + +---+ | famotidine (PEPCID) IVPB 20 mg | | | 20 mg, Intravenous, Administer | | | over 30 Minutes, Daily, First | | | dose on Fri12/25/18 at 0900 | | + +---+ | | | + +---+ + +-------+ +-------+---+---+ | famotidine (PEPCID) tablet 20 | Given | | 20 mg | | | | mg 20 mg, Oral, Daily, First | | 9 08:14 | | | | | dose on Fri12/25/18 at 0900 | | PST | | | | + +-------+ +-------+---+---+ +-------+ +-------+---+---+ | Given | | 20 mg | | | | | 9 09:40 | | | | | | PST | | | | +-------+ +-------+---+---+ +---+---+ | | | +---+---+ + +-------+ +--------+---+---+ | heparin (porcine) 5000 | Given | | 5,000 | | | | unit/0.5mL injection 5,000 Units | | 9 08:15 | Units | | | | 5,000 Units, Subcutaneous, Every | | PST | | | | | 12 Hours Scheduled (2 times per | | | | | | | day), First dose on Fri12/25/18 | | | | | | | at 0900 | | | | | | + +-------+ +--------+---+---+ +-------+ +--------+---+---+ | Given | | 5,000 | | | | | 9 21:35 | Units | | | | | PST | | | | +-------+ +--------+---+---+ | Given | | 5,000 | | | | | 9 09:00 | Units | | | | | PST | | | | +-------+ +--------+---+---+ +---+---+ | | | +---+---+ + +-------+ + +---+---+ | HYDROcodone-acetaminophen | Given | | 1 tablet | | | | (NORCO) 5-325 MG per tablet 1 | | 9 20:11 | | | | | tablet 1 tablet, Oral, Every 4 | | PST | | | | | Hours PRN, Severe Pain (7-10), | | | | | | | Starting 12/25/18 at 0047 | | | | | | + +-------+ + +---+---+ +-------+ + +---+---+ | Given | | 1 tablet | | | | | 9 17:17 | | | | | | PST | | | | +-------+ + +---+---+ | Given | | 1 tablet | | | | | 9 15:21 | | | | | | PST | | | | +-------+ + +---+---+ + +---+ | | | + +---+ | HYDROmorphone (DILAUDID) | | | injection 0.5 mg 0.5 mg, | | | Intravenous, Every 3 Hours PRN, | | | Moderate Pain (4-6), Starting Fri | | | 12/25/18 at 0052 | | + +---+ | | | + +---+ + +-------+ +------+---+---+ | HYDROmorphone (DILAUDID) | Given | | 1 mg | | | | injection 1 mg 1 mg, | | 9 22:26 | | | | | Intravenous, Every 3 Hours PRN, | | PST | | | | | Severe Pain (7-10), Starting Fri | | | | | | | 12/25/18 at 0052 | | | | | | + +-------+ +------+---+---+ +-------+ +------+---+---+ | Given | | 1 mg | | | | | 9 10:12 | | | | | | PST | | | | +-------+ +------+---+---+ | Given | | 1 mg | | | | | 9 13:34 | | | | | | PST | | | | +-------+ +------+---+---+ + +---+ | | | + +---+ | [id number] | | | (GREEN GI COCKTAIL) suspension 30 | | | mL 30 mL, Oral, Every 6 Hours | | | PRN, Other, before eating, | | | Starting 12/25/18 at 1651 | | + +---+ | | | + +---+ + +-------+ +------+---+---+ | ondansetron (ZOFRAN) injection | Given | | 4 mg | | | | 4 mg 4 mg, Intravenous, Every 6 | | 9 19:27 | | | | | Hours PRN, Nausea, Vomiting, | | PST | | | | | Starting 12/25/18 at 0050 | | | | | | + +-------+ +------+---+---+ +-------+ +------+---+---+ | Given | | 4 mg | | | | | 9 05:56 | | | | | | PST | | | | +-------+ +------+---+---+ | Given | | 4 mg | | | | | 9 12:11 | | | | | | PST | | | | +-------+ +------+---+---+ +---+---+ | | | +---+---+ + +-------+ +------+---+---+ | ondansetron (ZOFRAN-ODT) | Given | | 4 mg | | | | disintegrating tablet 4 mg 4 mg, | | 9 07:45 | | | | | Oral, Every 6 Hours PRN, Nausea, | | PST | | | | | Vomiting, Starting 12/25/18 | | | | | | | at 0050 | | | | | | + +-------+ +------+---+---+ +-------+ +------+---+---+ | Given | | 4 mg | | | | | 9 20:11 | | | | | | PST | | | | +-------+ +------+---+---+ | Given | | 4 mg | | | | | 9 03:58 | | | | | | PST | | | | +-------+ +------+---+---+ +---+---+ | | | +---+---+ + +-------+ +--------+---+---+ | potassium chloride (K-DUR) CR | Given | | 20 mEq | | | | tablet 20 mEq 20 mEq, Oral, | | 9 08:14 | | | | | Daily With Breakfast, First dose | | PST | | | | | on Fri12/25/18 at 0800 | | | | | | + +-------+ +--------+---+---+ +-------+ +--------+---+---+ | Given | | 20 mEq | | | | | 9 09:40 | | | | | | PST | | | | +-------+ +--------+---+---+ +---+---+ | | | +---+---+ + +-------+ +--------+---+---+ | potassium chloride (K-DUR) CR | Given | | 30 mEq | | | | tablet 30 mEq 30 mEq, Oral, | | 9 06:11 | | | | | Once, Fri12/25/18 at 0530, For 1 | | PST | | | | | dose | | | | | | + +-------+ +--------+---+---+ +---+---+ | | | +---+---+ + +-------+ +--------+---+---+ | sevelamer (RENVELA) tablet | Given | | 800 mg | | | | 1,600 mg 1,600 mg, Oral, 3 Times | | 9 17:21 | | | | | Daily With Meals, First dose on | | PST | | | | | 12/25/18 at 0800 | | | | | | + +-------+ +--------+---+---+ +-------+ + +---+---+ | Given | | 1,600 mg | | | | | 9 08:14 | | | | | | PST | | | | +-------+ + +---+---+ + +---+ | | | + +---+ | simethicone (MYLICON) chewable | | | tablet 80 mg 80 mg, Oral, Every | | | 6 Hours PRN, Gas pain, Starting | | | 12/26/18 at 1640 | | + +---+ | | | + +---+ + +---------+ + +---+---+ | vancomycin (VANCOCIN) 1000 | New Bag | | 1,000 mg | | | | mg/250 mL IVPB 1,000 mg (1 g), | | 9 06:12 | | | | | Intravenous, Administer over 60 | | PST | | | | | Minutes, Once, 12/25/18 at | | | | | | | 0600, For 1 dose, Vancomycin | | | | | | | should be given AFTER peritoneal | | | | | | | fluid is taken (NOT BEFORE) | | | | | | + +---------+ + +---+---+ +---+---+ | | | +---+---+ + +---------+ + +---+---+ | vancomycin (VANCOCIN) 1000 | New Bag | | 1,000 mg | | | | mg/250 mL IVPB 1,000 mg (1 g), | | 9 12:00 | | | | | Intravenous, Once, 12/27/18 at | | PST | | | | | 1130, For 1 dose, Indications: | | | | | | | Peritoneal Dialysis-associated | | | | | | | Peritonitis, Peritonitis, PD | | | | | | | peritonitis | | | | | | + +---------+ + +---+---+ +---+---+ | | | +---+---+ + +-------+ +------+---+---+ | zolpidem (AMBIEN) tablet 5 mg | Given | | 5 mg | | | | 5 mg, Oral, Nightly PRN, Sleep, | | 9 22:38 | | | | | may repeat once in 1 hr if | | PST | | | | | initial dose not effective, | | | | | | | Starting 12/25/18 at 0050 | | | | | | + +-------+ +------+---+---+ +-------+ +------+---+---+ | Given | | 5 mg | | | | | 9 00:33 | | | | | | PST | | | | +-------+ +------+---+---+ +---+---+ | | | +---+---+ in this encounter
--- OUTSIDE RECORDS SUMMARY | ~2019-01-31 | XMS | Clinical Summary ---
Demographics + + + | Address | [address] | | | [place] [address] | + + + | Home Phone | | + + + | Preferred Language | Unknown | + + + | Marital Status | | + + + | Zoroastrianism Affiliation | Unknown | + + + | Race | Unknown | + + + | Ethnic Group | Unknown | + + + Author + + + | Author | [facility] | + + + | Organization | [facility] | + + + | Address | Unknown | + + + | Phone | Unavailable | + + + Support + + + + + | Name | Relationship | Address | Phone | + + + + + | Lyubov Smalls | [address] | [place] | | | | | [address] | | + + + + + | Lydia Palm | [address] | [place] | | | | | [address] | | + + + + + | Jose C Oconnor | E[address] | [address] | | | | | [place] | | | | | [address] | | + + + + + Care Team Providers + +------+ + | Care Project Planner Name | Role | Phone | + +------+ + | Juan F Whitley MD | PP | | + +------+ + Allergies No Known Allergies Current Medications + + +---------+---------+------+------+-------+ | Prescription | Sig. | Disp. | Refills | Star | End | Statu | | | | | | t | Date | s | | | | | | Date | | | + + +---------+---------+------+------+-------+ | ergocalciferol | Take 50,000 Units by | | | | | Activ | | (DRISDOL) [id number] | mouth once a week. | | | | | e | | UNITS capsule | | | | | | | + + +---------+---------+------+------+-------+ | amLODIPine | Take 2.5 mg by mouth | | | | | Activ | | (NORVASC) 2.5 MG | daily. | | | | | e | | tablet | | | | | | | + + +---------+---------+------+------+-------+ | gentamicin | Apply topically 3 | 15 g | 1 | 03/1 | | Activ | | (GARAMYCIN) 0.1 % | (three) times daily. | | | 8/20 | | e | | ointment | | | | 17 | | | + + +---------+---------+------+------+-------+ | ondansetron | Take 1 tablet by | 30 | 11 | 03/1 | | Activ | | (ZOFRAN) 8 MG tablet | mouth every 8 | tablet | | 8/20 | | e | | | (eight) hours as | | | 17 | | | | | needed for Nausea. | | | | | | + + +---------+---------+------+------+-------+ | ALPRAZolam (XANAX) | Take 0.5 mg by mouth | | | | | Activ | | 0.5 MG tablet | nightly as needed | | | | | e | | | for Sleep. | | | | | | + + +---------+---------+------+------+-------+ | LORazepam (ATIVAN) | Take 1 mg by mouth | | | | | Activ | | 1 MG tablet | every 8 (eight) | | | | | e | | | hours as needed for | | | | | | | | Anxiety. | | | | | | + + +---------+---------+------+------+-------+ | potassium chloride | Take 1 tablet by | 30 | 3 | 04/3 | 04/3 | Activ | | SA (HOLLY RIGGS) | mouth daily. | tablet | | 0/20 | 0/20 | e | | 20 MEQ tablet | | | | 18 | 19 | | + + +---------+---------+------+------+-------+ | zolpidem (AMBIEN) | Take 1 tablet by | 10 | 0 | 04/3 | | Activ | | 5 MG tablet | mouth nightly as | tablet | | 0/20 | | e | | | needed for Sleep | | | 18 | | | | | (may repeat once in | | | | | | | | 1 hr if initial dose | | | | | | | | not effective). | | | | | | + + +---------+---------+------+------+-------+ | | Take 1 tablet by | 10 | 0 | 05/1 | | Activ | | HYDROcodone-acetamin | mouth every 4 (four) | tablet | | 0/20 | | e | | ophen (NORCO) 5-325 | hours as needed. | | | 18 | | | | MG per tablet | | | | | | | + + +---------+---------+------+------+-------+ | sevelamer | Take 800 mg by mouth | | | | | Activ | | (RENVELA) 800 MG | 3 (three) times | | | | | e | | tablet | daily with meals. | | | | | | + + +---------+---------+------+------+-------+ | promethazine | Take 25 mg by mouth | | | | | Activ | | (PHENERGAN) 25 MG | every 6 (six) hours | | | | | e | | tablet | as needed for | | | | | | | | Nausea. | | | | | | + + +---------+---------+------+------+-------+ | omeprazole | Take 20 mg by mouth | | | | | Activ | | (PRILOSEC) 20 MG | every morning before | | | | | e | | capsule | breakfast. | | | | | | + + +---------+---------+------+------+-------+ | traZODone | Take 100 mg by mouth | | | | | Activ | | (DESYREL) 100 MG | nightly. | | | | | e | | tablet | | | | | | | + + +---------+---------+------+------+-------+ | clonazePAM | Take 0.25 mg by | | | | 03/0 | Disco | | (KLONOPIN) 0.5 MG | mouth daily as | | | | 2/20 | ntinu | | tablet | needed for Anxiety. | | | | 19 | ed | + + +---------+---------+------+------+-------+ | cefdinir (OMNICEF) | Take 1 capsule by | 9 | 0 | 02/0 | 03/0 | Disco | | 300 MG | mouth daily. | capsule | | 1/20 | 2/20 | ntinu | | capsuleIndications: | | | | 19 | 19 | ed | | Enteritis and | | | | | | | | Colitis | | | | | | | + + +---------+---------+------+------+-------+ | metroNIDAZOLE | Take 1 tablet by | 19 | 0 | 01/3 | 03/0 | Disco | | (FLAGYL) 500 MG | mouth every 12 | tablet | | 1/20 | 2/20 | ntinu | | tabletIndications: | (twelve) hours. | | | 19 | 19 | ed | | Enteritis and | | | | | | | | Colitis | | | | | | | + + +---------+---------+------+------+-------+ | metroNIDAZOLE | Take 1 tablet by | 10 | 0 | 03/0 | 03/0 | Expir | | (FLAGYL) 500 MG | mouth every 12 | tablet | | /20 | 05/29 | ed | | tabletIndications: | (twelve) hours for 5 | | | 19 | 19 | | | Enteritis and | days. | | | | | | | Colitis | | | | | | | + + +---------+---------+------+------+-------+ | ciprofloxacin | Take 1 tablet by | 5 | 0 | 03/0 | 03/0 | Expir | | (CIPRO) 500 MG | mouth daily for 5 | tablet | | 2/20 | 05/29 | ed | | tablet | days. | | | 19 | 19 | | + + +---------+---------+------+------+-------+ Active Problems + + + | Problem | Noted Date | + + + | Diverticulitis | 01/05/2019 | + + + | Hyperphosphatemia | 01/05/2019 | + + + | Abnormal EKG | 01/05/2019 | + + + | Cold intolerance | 04/03/2018 | + + + + + | Last Assessment & Plan: Patient presented today for | | evaluation of complex persistent but small right adnexal mass. In | | addition to this problem, she reported that she is chronically | | cold, in fact comes in covered with a blanket. Even outside with | | elevated temperatures, she is cold. She also reports dry skin and | | hair loss as well as weight control issues. Many of these issues | | may be related to her chronic end-stage renal disease, although | | I did find an elevated TSH from 2017 which would suggest she is | | hypothyroid. She reports that she is never been evaluated or | | treated for this problem. Labs were reordered today including TSH | | and free T4. If these are abnormal, I will recommend the patient | | see her primary care physician promptly for initiation of | | therapy. | + + + + + | GERD with esophagitis | 03/17/2018 | + + + | Right ovarian cyst | 09/07/2017 | + + + | ESRD on peritoneal dialysis | 06/04/2017 | + + + + + | Last Assessment & Plan: Reportedly is currently well | | controlled with peritoneal dialysis. She has had 2 previous | | episodes of peritonitis. No current catheter-related | | complications. Increased risk for intra-abdominal adhesions | | making surgical exploration for the adnexal mass a high-risk | | scenario. She was so advised. | + + + + + | Gastroesophageal reflux disease without esophagitis | 01/23/2017 | + + + | Ovarian mass, right | 10/25/2015 | + + + + + | Last Assessment & Plan: Persistent complex right ovarian mass | | noted on CT. Per current imaging, the mass may be slightly | | larger than previously noted. Most recent ultrasound demonstrated | | a complex mass with multiple cystic components or septations and | | thickening along with vascular pattern around the mass, last | | seen in August. No associated obvious free fluid the pelvis that | | was unexpected for some on peritoneal dialysis. No family | | history of ovarian malignancies. Remarkably enough, CEA 125 was | | only 3.7 despite the fact that she [...] see the ultrasound results. | + + + +---+ | Anemia in ESRD (end-stage renal disease) (HCC) | | + +---+ | Secondary hyperparathyroidism (HCC) | | + +---+ Resolved Problems + + + + | Problem | Noted | Resolved | | | Date | Date | + + + + | Left lower quadrant pain | 01/05/20 | | | | 19 | 9 | + + + + | Elevated troponin | 01/05/20 | | | | 19 | 9 | + + + + | Peritonitis due to infected peritoneal dialysis catheter (HCC) | 12/08/19 | | | | 19 | 9 | + + + + | Sepsis ([facility]) | 03/16/20 | | | | 18 | 8 | + + + + | Peritonitis ([facility]) | 03/16/20 | | | | 18 | 9 | + + + + | Acute abdominal pain | 03/16/20 | | | | 18 | 9 | + + + + | Epigastric pain | 09/07/20 | | | | 17 | 9 | + + + + | Leukocytosis | 09/07/20 | | | | 17 | 9 | + + + + | Intractable hiccups | 09/07/20 | | | | 17 | 7 | + + + + | Hypercalcemia | 09/07/20 | | | | 17 | 7 | + + + + | Abdominal pain | 06/04/20 | | | | 17 | 9 | + + + + | Hypokalemia | 06/04/20 | | | | 17 | 9 | + + + + | Nausea with vomiting | 06/04/20 | | | | 17 | 8 | + + + + | Acute gastroenteritis | 06/04/20 | | | | 17 | 7 | + + + + | Elevated lipase | 01/24/20 | | | | 17 | 7 | + + + + | Abdominal wall abscess | 01/23/20 | | | | 17 | 9 | + + + + | Metabolic acidosis | 10/28/20 | | | | 15 | 7 | + + + + | Hyperphosphatemia | 10/28/20 | | | | 15 | 7 | + + + + | Itching | 10/28/20 | | | | 15 | 7 | + + + + | Hypocalcemia | 10/28/20 | | | | 15 | 7 | + + + + | Uremia | 10/28/20 | | | | 15 | 7 | + + + + | Loss of weight | 10/25/20 | | | | 15 | 7 | + + + + | Fatigue | 10/25/20 | | | | 15 | 7 | + + + + | Hypoalbuminemia | | | | | | 9 | + + + + Encounters +--------+ + + + + | Date | Type | Specialty | Care Team | Description | +--------+ + + + + | 01/05/ | Hospital | | Modesto Augustin G, | Diverticulitis | | 2019 - | Encounter | | Salvador Matt, | (Primary Dx); | | | | | Jero Bland, | Hypokalemia; ESRD on | | 01/09/ | | | | peritoneal dialysis | | 2018 | | | | ([facility]); End-stage | | | | | | renal disease on | | | | | | peritoneal dialysis | | | | | | ([facility]) | +--------+ + + + + +---+ + | | Discharge | | | Summaries | | | Abelardo Smart | | Koko Ghotra MD | | | - | | | 01/09/2019 | | | 10:14 AM | | | PST | | | Formatting | | | of this | | | note may be | | | different | | | from the | | | original.[facility] | | [facility]: | | | Hospitalist | | | Physician | | | Discharge | | | Summary Pt: | | | Ramona C | | | [place] | | | AGE/SEX: 38 | | | y.o. | | | female | | | MRN: | | | [id number] | | | OM: | | | [id number] | | | PCP: JUAN F | | | QUAEMPTS | | | | | | : | | | 1980 | | | Admit date: | | | | | | 01/05/2019Di | | | scharge | | | date and | | | time: | | | 01/09/2019 | | | 10:14 AM | | | Admitting | | | Physician: | | | Kalavati | | | Paila, MD | | | Discharge | | | Physician: | | | Jero U | | | Kleber , | | | MDConsults: | | | DR. | | | ARifPrimary | | | Discharge | | | Diagnoses: | | | Principal | | | Problem: | | | Diverticuli | | | tisActive | | | Problems: | | | Gastroesoph | | | ageal | | | reflux | | | disease | | | without | | | esophagitis | | | ESRD on | | | peritoneal | | | dialysis | | | Right | | | ovarian | | | cyst | | | Anemia in | | | ESRD | | | (end-stage | | | renal | | | disease) | | | (HCC) | | | Hyperphosph | | | atemia | | | Abnormal | | | EKG | | | Secondary | | | hyperparath | | | yroidism | | | (HCC)Resolv | | | ed | | | Problems: | | | Abdominal | | | pain | | | Hypokalemia | | | | | | Leukocytosi | | | s Left | | | lower | | | quadrant | | | pain | | | Elevated | | | troponinSec | | | ondary | | | Discharge | | | Diagnoses: | | | | | | NIllDischar | | | ged | | | Condition: | | | stableSigni | | | ficant | | | Diagnostic | | | Studies/Pro | | | cedures: | | | No results | | | found.HPI | | | and | | | Hospital | | | Course: 38 | | | y.o. femal | | | e with | | | significant | | | past | | | medical | | | history of | | | End-stage | | | renal | | | disease on | | | peritoneal | | | dialysis, | | | GERD, | | | chronic | | | nausea, | | | essential | | | hypertensio | | | n. The | | | patient was | | | discharged | | | recently | | | after | | | admission | | | for culture | | | negative | | | peritoneal | | | dialysis | | | catheter | | | associated | | | peritonitis | | | , and was | | | treated | | | with | | | ceftazidime | | | and | | | vancomycin, | | | she was | | | discharged | | | home on | | | oral Ceftin | | | need and | | | Flagyl and | | | presented | | | to the | | | hospital | | | with | | | abdominal | | | pain with | | | CT scan | | | finding | | | consistent | | | with acute | | | diverticuli | | | tis. She | | | was started | | | on Zosyn. | | | Her symptom | | | has | | | significant | | | ly | | | improved. | | | She will go | | | home on | | | oral Cipro | | | and Flagyl. | | | She says | | | she is not | | | having any | | | abdominal | | | pain, no | | | nausea or | | | vomiting | | | today. She | | | is not | | | having any | | | bloody | | | bowel | | | movement | | | either.She | | | Had no CP, | | | SOB, N/V, | | | Diarrhea, | | | Abdominal | | | pain or SARABIA. | | | No | | | constipatio | | | n or change | | | in bowel | | | habits. No | | | orthopnea | | | or PND. | | | Appetite is | | | good | | | without | | | abdominal | | | bloating. | | | No cough or | | | fever. No | | | dizziness, | | | lightheaded | | | ness or any | | | symptoms | | | suggestive | | | of stroke. | | | Follow Up | | | Labs/Imagin | | | g and | | | Monitoring: | | | | | | NephrologyD | | | ischarge | | | Vitals: | | | Vitals: | | | 01/08/19 | | | 2341 | | | 01/09/19 | | | 0348 | | | 01/09/19 | | | 0700 | | | 01/09/19 | | | 0934 BP: | | | 91/50 95/55 | | | 105/55 BP | | | Location: | | | Right upper | | | arm Right | | | upper arm | | | Pulse: 78 | | | 76 88 | | | Resp: 18 20 | | | 18 Temp: | | | 98.6 F | | | (37 C) | | | 97.6 F | | | (36.4 C) | | | 98.1 F | | | (36.7 C) | | | TempSrc: | | | Oral Oral | | | Oral SpO2: | | | 95% 96% | | | 99% | | | Weight: | | | 87.5 kg | | | (192 lb | | | 14.4 oz) | | | 86.4 kg | | | (190 lb 7.6 | | | oz) | | | Height: | | | Discharge | | | Exam: | | | Constitutio | | | nal: Alert | | | and | | | oriented to | | | person, | | | place, and | | | time.Cardio | | | vascular: | | | Normal | | | rate, | | | regular | | | rhythm, | | | normal | | | heart | | | sounds with | | | S1 and S2 | | | and intact | | | distal | | | pulses. | | | Exam | | | reveals no | | | gallop and | | | no friction | | | rub. No | | | murmur | | | heard.Pulmo | | | nary/Chest: | | | Clear | | | B/lAbdomina | | | l: Soft. NT | | | | | | Musculoskel | | | etal: | | | Normal | | | range of | | | motion.exhi | | | bits no | | | tenderness. | | | exhibits | | | no edema. | | | | | | Neurologica | | | l: Alert | | | and | | | oriented to | | | person, | | | place, and | | | time. Skin: | | | Skin is | | | warm and | | | dry. No | | | rash noted. | | | No | | | erythema. | | | No pallor. | | | Psychiatric | | | : Has a | | | normal mood | | | and | | | affect. | | | Behavior is | | | normal. | | | Judgment | | | normal. Not | | | suicidal | | | LABS: | | | Recent | | | LabsLab | | | | | | 6 | | | | | | 6 | | | | | | 8 | | | | | | 9 WBC | | | 11.16* | | | 11.96* 9.72 | | | 11.15* HGB | | | 10.0* 9.4* | | | 10.2* | | | 11.0* HCT | | | 30.2* 28.3* | | | 30.4* | | | 33.7* PLT | | | 201 197 225 | | | 267 | | | NEUTOPHILPC | | | T 77.04 | | | 80.70 -- | | | 75.00 | | | MONOPCT | | | 6.01 5.54 | | | -- 6.73 | | | Recent | | | LabsLab | | | | | | 6 | | | | | | 6 | | | | | | 8 | | | | | | 8 | | | | | | 9 | | | | | | 1 NA 140 | | | 137 134* | | | 134* 134* | | | < > 143 K | | | 4.2 3.4* | | | 4.0 2.6* | | | 2.7* < > | | | 2.8* CL 105 | | | 102 101 | | | 98* 97* < | | | > 99 CO2 | | | 22* 21* 20* | | | 23 23 < > | | | 23 BUN 32* | | | 33* 38* | | | 34* 39* < | | | > 37* | | | CREATININE | | | 13.2* 13.3* | | | 14.4* | | | 14.0* 15.2* | | | < > | | | 15.32* PROT | | | -- -- | | | -- 5.4* | | | 6.0* -- | | | 6.8 BILITOT | | | -- -- | | | -- 0.3 | | | 0.4 -- | | | 0.4 ALT -- | | | -- -- | | | 36 50 -- | | | 53 AST -- | | | -- -- | | | 17 26 -- | | | 55* < > = | | | values in | | | this | | | interval | | | not | | | displayed.R | | | ecent | | | LabsLab | | | | | | 6 | | | | | | 6 | | | | | | 8 MG 2.0 | | | 2.0 2.1 | | | Recent | | | [facility] | | | | | | 2 INR 1.1 | | | Recent | | | Labs[facility] | | | | | | 7 | | | | | | 2 | | | | | | 1 TROPONINI | | | 0.074* | | | 0.073* | | | 0.076* | | | Results | | | No | | | results | | | found for | | | the last 72 | | | hours. | | | | | | Disposition | | | : Home or | | | Self | | | CarePatient | | | | | | Instruction | | | s: | | | Medication | | | List START | | | taking | | | these | | | medications | | | | | | ciprofloxac | | | in 500 MG | | | tabletQTY: | | | 5 | | | tabletRefil | | | ls: | | | 0Commonly | | | known as: | | | CIPROTake 1 | | | tablet by | | | mouth daily | | | for 5 | | | days. | | | CONTINUE | | | taking | | | these | | | medications | | | | | | ALPRAZolam | | | 0.5 MG | | | tabletRefil | | | ls: | | | 0Commonly | | | known as: | | | XANAX | | | amLODIPine | | | 2.5 MG | | | tabletRefil | | | ls: | | | 0Commonly | | | known as: | | | NORVASC | | | ergocalcife | | | rol [id number] | | | units | | | capsuleRefi | | | lls: | | | 0Commonly | | | known as: | | | DRISDOL | | | gentamicin | | | 0.1 % | | | ointmentQTY | | | : 15 | | | gRefills: | | | 1Commonly | | | known as: | | | GARAMYCINAp | | | ply | | | topically 3 | | | (three) | | | times | | | daily. | | | HYDROcodone | | | -acetaminop | | | hen 5-325 | | | MG per | | | tabletQTY: | | | 10 | | | tabletRefil | | | ls: | | | 0Commonly | | | known as: | | | NORCOTake 1 | | | tablet by | | | mouth every | | | 4 (four) | | | hours as | | | needed. | | | LORazepam 1 | | | MG | | | tabletRefil | | | ls: | | | 0Commonly | | | known as: | | | ATIVAN | | | metroNIDAZO | | | LE 500 MG | | | tabletQTY: | | | 10 | | | tabletRefil | | | ls: | | | 0Commonly | | | known as: | | | FLAGYLTake | | | 1 tablet by | | | mouth | | | every 12 | | | (twelve) | | | hours for 5 | | | days. | | | omeprazole | | | 20 MG | | | capsuleRefi | | | lls: | | | 0Commonly | | | known as: | | | PRILOSEC | | | ondansetron | | | 8 MG | | | tabletQTY: | | | 30 | | | tabletRefil | | | ls: | | | 11Commonly | | | known as: | | | ZOFRANTake | | | 1 tablet by | | | mouth | | | every 8 | | | (eight) | | | hours as | | | needed for | | | Nausea. | | | potassium | | | chloride SA | | | 20 MEQ | | | tabletQTY: | | | 30 | | | tabletRefil | | | ls: | | | 3Commonly | | | known as: | | | K-DUR,KLOR- | | | CONTake 1 | | | tablet by | | | mouth | | | daily. | | | promethazin | | | e 25 MG | | | tabletRefil | | | ls: | | | 0Commonly | | | known as: | | | PHENERGAN | | | sevelamer | | | 800 MG | | | tabletRefil | | | ls: | | | 0Commonly | | | known as: | | | RENVELA | | | traZODone | | | 100 MG | | | tabletRefil | | | ls: | | | 0Commonly | | | known as: | | | DESYREL | | | zolpidem 5 | | | MG | | | tabletQTY: | | | 10 | | | tabletRefil | | | ls: | | | 0Commonly | | | known as: | | | AMBIENTake | | | 1 tablet by | | | mouth | | | nightly as | | | needed for | | | Sleep (may | | | repeat once | | | in 1 hr if | | | initial | | | dose not | | | effective). | | | You might | | | also be | | | taking | | | other | | | medications | | | not listed | | | above. If | | | you have | | | questions | | | about any | | | of your | | | other | | | medications | | | , talk to | | | the person | | | who | | | prescribed | | | them or | | | your | | | Primary | | | Care | | | Provider. | | | STOP | | | taking | | | these | | | medications | | | cefdinir | | | 300 MG | | | capsuleComm | | | only known | | | as: | | | OMNICEF | | | clonazePAM | | | 0.5 MG | | | tabletCommo | | | nly known | | | as: | | | KlonoPIN | | | Where to | | | Get Your | | | Medications | | | You can | | | get these | | | medications | | | from any | | | pharmacy | | | Bring a | | | paper | | | prescriptio | | | n for each | | | of these | | | medications | | | | | | ciprofloxac | | | in 500 MG | | | tablet | | | metroNIDAZO | | | LE 500 MG | | | tablet | | | Activity: | | | activity as | | | | | | toleratedDi | | | et: clear | | | liquids, | | | advance as | | | toleratedWo | | | und Care: | | | as | | | directedDis | | | charge | | | medications | | | | | | reconciliat | | | ion was | | | completed | | | by myself. | | | I | | | carefully | | | reviewed | | | all the | | | medications | | | with the | | | patient. | | | All the | | | dosages was | | | confirmed | | | with the | | | patient to | | | the best of | | | patient's | | | knowledge. | | | I resumed | | | most of his | | | home | | | medication | | | after | | | talking to | | | the | | | patient. I | | | informed | | | the patient | | | that, If | | | you are | | | not taking | | | any of | | | those | | | medicines | | | or if you | | | think that | | | dose is not | | | right | | | please talk | | | to the | | | primary | | | care doctor | | | for | | | adjustment | | | of doses | | | and | | | medications | | | . Please | | | take all | | | the | | | medication | | | to your PCP | | | and show | | | him what | | | medication | | | you are | | | taking so | | | that he can | | | adjust | | | your | | | medications | | | if needed. | | | Follow-Up: | | | Juan F | | | [place], | | | [id number] | | | [place] | | | d | | | [address] | | | n [place] | | | [phone] | | | [phone] | | | weekFadi H | | | [place], | | | [id number] | | | [address] | | | [place] | | | [place] | | | [place] | | | [phone] | | | [phone] | | | week | | | Discharge | | | took more | | | than 35 | | | minutes, to | | | include | | | final | | | examination | | | , | | | discussion | | | of | | | admission, | | | and | | | preparation | | | of | | | prescriptio | | | ns, | | | instruction | | | s for | | | ongoing | | | care, | | | follow up | | | and | | | dictation | | | of | | | summary.Sig | | | brody:JERO U | | | KLEBER, | | | MD3/ | | | 0:14 | | | AMDictation | | | software, | | | Dragon, | | | used which | | | may contain | | | error for | | | similar | | | sounding | | | words even | | | after | | | review. | | | Personal | | | communicati | | | on | | | requested | | | for any | | | clarificati | | | on.Portions | | | of this | | | chart may | | | have been | | | copied from | | | previous | | | notes for | | | continuity | | | of care | | | purpose | +---+ + +--------+ +---+ + + | 12/25/ | Documentati | | Chago Rey MD | Other (November | | 2018 | on Only | | | [facility] | | | | | [facility] | | | | | | Note) | +--------+ +---+ + + | 12/24/ | Hospital | | Espinoza, | Abdominal pain, | | 2019 - | Encounter | | MD Jose | unspecified | | | | | Hilda Edwards, | abdominal location; | | 12/27/ | | | | End-stage renal | | 2019 | | | | disease on | | | | | | peritoneal dialysis | | | | | | (HCC); Anemia in | | | | | | ESRD (end-stage | | | | | | renal disease) | | | | | | (HCC); | | | | | | Hyperphosphatemia; | | | | | | Hypoalbuminemia | +--------+ +---+ + + +---+ + | | Discharge | | | Summaries | | | - Jerry, | | | Hilda, DO | | | - | | | 12/27/2018 | | | 12:45 PM | | | PST | | | Formatting | | | of this | | | note may be | | | different | | | from the | | | original.Pa | | | tient: | | | Ramona C | | | Goats[place] | | | : | | | 1980 | | | MRN: | | | [id number] | | | te of | | | Admission: | | | 12/24/2018 | | | Date of | | | Discharge: | | | 12/27/2018 | | | Treatment | | | Team: | | | Consulting | | | Physician: | | | Chago H | | | [place], | | | MDConsultin | | | g | | | Physician: | | | Jose C Cleaning, | | | | | | DOAdmitting | | | Provider: | | | Jose | | | Juan-Met | | | z, | | | MDDischargi | | | ng | | | Provider: | | | Hilda | | | Jerry, | | | DODischarge | | | Diagnoses: | | | Principal | | | Problem: | | | Abdominal | | | painActive | | | Problems: | | | 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 * | | | | | | Procedures | | | Performed:C | | | hief | | | Complaint:N | | | o chief | | | complaint | | | on | | | file.Hospit | | | al Course: | | | Ramona C | | | Goatsen is | | | a 38 y.o. | | | female who | | | was | | | admitted on | | | 12/24/2018 | | | with | | | culture | | | negative PD | | | associated | | | | | | peritonitis | | | .Ms. | | | Goatsen is | | | a 38 | | | y.o. femal | | | e with | | | significant | | | past | | | medical | | | history of | | | ESRD on | | | peritoneal | | | dialysis, | | | chronic | | | nausea, and | | | | | | hypertensio | | | n, who | | | presented | | | to the ED | | | with | | | abdominal | | | pain, | | | nausea and | | | vomiting. | | | She was | | | recently | | | discharged | | | on 12/10/18 | | | after | | | being | | | hospitalize | | | d for | | | culture | | | negative PD | | | associated | | | | | | peritonitis | | | . She was | | | transferred | | | [facility] | | | higher | | | level of | | | care. In ED | | | at [facility] | | | abd was | | | performed, | | | imaging did | | | not show | | | any acute | | | GI process, | | | known | | | ovarian | | | mass of | | | unchanged | | | size | | | present. | | | Peritoneal | | | fluid was | | | drawn and | | | fluid | | | studies | | | show 109 | | | WBC/mm3. As | | | >100 cells | | | consistent | | | with PD | | | catheter | | | related | | | peritonitis | | | , will | | | consider | | | this | | | relapse of | | | PD | | | peritonitis | | | . Patient | | | was treated | | | with | | | Fortez and | | | vancomycin. | | | She will | | | go home on | | | antibiotics | | | per | | | nephrology | | | dosing with | | | PD. Her | | | abdominal | | | pain and | | | nausea | | | appear to | | | be very | | | chronic in | | | nature. She | | | underwent | | | EGD which | | | showed | | | diffuse | | | mild | | | gastritis | | | in 09/2017, | | | she has | | | been | | | compliant | | | with PPI. | | | It is | | | possible | | | that she is | | | having | | | intermitten | | | t torsion | | | due to | | | ovarian | | | mass, and | | | it was | | | discussed | | | with | | | patient the | | | need for | | | OB follow | | | up, however | | | she had no | | | acute pain | | | while | | | inpatient. | | | Patient | | | also notes | | | a | | | significant | | | amount of | | | gas pain, | | | and her | | | symptoms | | | improve | | | with | | | passing gas | | | and bowel | | | movements. | | | She was | | | discharged | | | home in | | | stable | | | condition. | | | Relapse of | | | PD | | | associated | | | peritonitis | | | - Discussed | | | with Dr. | | | Akoum, for | | | PD any cell | | | count >100 | | | is | | | considered | | | positive, | | | patient's | | | PD fluid | | | came back | | | with 109 | | | WBCs/mm3. | | | Last | | | admission | | | patient had | | | nucleated | | | cell count | | | of 151, was | | | treated | | | with | | | cefdinir | | | and flagyl | | | for culture | | | negative | | | peritonitis | | | . - S/P | | | ceftazidime | | | and | | | vancomycin | | | while | | | inpatient - | | | Continue | | | antibiotic | | | dosing with | | | PD per | | | nephrologyH | | | ypertension | | | . - Will | | | continue | | | Norvasc 2.5 | | | mg | | | daily Abdo | | | kelsie pain, | | | resolved, | | | possibly | | | 2/2 | | | peritonitis | | | ; also | | | possibly | | | constipatio | | | n vs gas | | | pain- | | | Lipase is | | | within | | | normal | | | limits, | | | discussed | | | with | | | patient, | | | upon | | | further | | | evaluation | | | patient | | | does admit | | | to | | | significant | | | pain with | | | gas. Pain | | | improves | | | with | | | ambulation | | | and with | | | passing | | | gas. | | | Encouraged | | | ambulation | | | and start | | | simethicone | | | prn and | | | with meals. | | | Follow up | | | outpatient | | | for OB | | | follow up | | | for ovarian | | | mass. | | | End-stage | | | renal | | | disease on | | | peritoneal | | | dialysis. - | | | Nephrology | | | following. | | | Will | | | continue | | | Renvela. | | | Daily PD. | | | Discharge | | | Exam and | | | Data:Vital | | | Signs:BP | | | 104/63 (BP | | | Location: | | | Left upper | | | arm) | | | | Pulse 74 | | | | Temp 98.3 | | | F (36.8 | | | C) (Oral) | | | | Resp 19 | | | | Ht | | | 1.575 m (5' | | | 2") | Wt | | | 81.3 kg | | | (179 lb 3.7 | | | oz) | | | | SpO2 97% | | | | | | | Breastfeedi | | | ng? No | | | | BMI 32.78 | | | kg/m | | | Constitut | | | ional: She | | | is oriented | | | to person, | | | place, and | | | time. She | | | appears | | | well-develo | | | ped and | | | well-nouris | | | hed. HENT: | | | Head: | | | Normocephal | | | ic and | | | atraumatic. | | | Eyes: | | | Pupils are | | | equal, | | | round, and | | | reactive to | | | light. | | | EOM are | | | normal. | | | Neck: | | | Normal | | | range of | | | motion. | | | Neck | | | supple. | | | Cardiovascu | | | lar: Reg | | | ular rate, | | | normal | | | rhythm. No | | | murmursPulm | | | onary/Chest | | | : Effort | | | normal and | | | breath | | | sounds | | | normal. No | | | respiratory | | | distress. | | | She has no | | | wheezes. | | | Abdominal: | | | Soft. Bowel | | | sounds are | | | normal. No | | | | | | tenderness, | | | no | | | guarding/re | | | bound. PD | | | catheter | | | present. M | | | usculoskele | | | minh: Normal | | | range of | | | motion. She | | | exhibits | | | no edema. | | | Neurologica | | | l: She is | | | alert and | | | oriented to | | | person, | | | place, and | | | time. No | | | cranial | | | nerve | | | deficit. | | | Skin: Skin | | | is | | | warm and | | | dry. No | | | erythema. | | | Psychiatric | | | : She has a | | | normal | | | mood and | | | affect. | | | Recent Labs | | | Recent | | | LabsLab | | | | | | 4 WBC | | | 13.46* HGB | | | 12.7 HCT | | | 38.4 PLT | | | 388 Recent | | | LabsLab | | | | | | 4 NA 135 K | | | 3.2* CL 97* | | | CO2 20* | | | BUN 27* | | | CREATININE | | | 14.6* No | | | results for | | | input(s): | | | INR in the | | | last 168 | | | hours.Recen | | | t Radiology | | | ResultsNo | | | results | | | found.No | | | discharge | | | procedures | | | on | | | file.Outsta | | | nding | | | Issues:Seasonal [employer] | | | dorothy | | | abdominal | | | pain, | | | chronic | | | nausea. | | | Discharge | | | Information | | | :Follow | | | up:Juan F | | | [place], | | | [id number] | | | [place] | | | d | | | [address] | | | n [place] | | | [phone] | | | [phone] | | | Medication | | | List | | | CONTINUE | | | taking | | | these | | | medications | | | | | | ALPRAZolam | | | 0.5 MG | | | tabletRefil | | | ls: | | | 0Commonly | | | known as: | | | XANAX | | | amLODIPine | | | 2.5 MG | | | tabletRefil | | | ls: | | | 0Commonly | | | known as: | | | NORVASC | | | cefdinir | | | 300 MG | | | capsuleQTY: | | | 9 | | | capsuleRefi | | | lls: | | | 0Commonly | | | known as: | | | OMNICEFTake | | | 1 capsule | | | by mouth | | | daily. | | | clonazePAM | | | 0.5 MG | | | tabletRefil | | | ls: | | | 0Commonly | | | known as: | | | KlonoPIN | | | ergocalcife | | | rol [address]28 | | | units | | | capsuleRefi | | | lls: | | | 0Commonly | | | known as: | | | DRISDOL | | | gentamicin | | | 0.1 % | | | ointmentQTY | | | : 15 | | | gRefills: | | | 1Commonly | | | known as: | | | GARAMYCINAp | | | ply | | | topically 3 | | | (three) | | | times | | | daily. | | | HYDROcodone | | | -acetaminop | | | hen 5-325 | | | MG per | | | tabletQTY: | | | 10 | | | tabletRefil | | | ls: | | | 0Commonly | | | known as: | | | NORCOTake 1 | | | tablet by | | | mouth every | | | 4 (four) | | | hours as | | | needed. | | | LORazepam 1 | | | MG | | | tabletRefil | | | ls: | | | 0Commonly | | | known as: | | | ATIVAN | | | metroNIDAZO | | | LE 500 MG | | | tabletQTY: | | | 19 | | | tabletRefil | | | ls: | | | 0Commonly | | | known as: | | | FLAGYLTake | | | 1 tablet by | | | mouth | | | every 12 | | | (twelve) | | | hours. | | | ondansetron | | | 8 MG | | | tabletQTY: | | | 30 | | | tabletRefil | | | ls: | | | 11Commonly | | | known as: | | | ZOFRANTake | | | 1 tablet by | | | mouth | | | every 8 | | | (eight) | | | hours as | | | needed for | | | Nausea. | | | potassium | | | chloride SA | | | 20 MEQ | | | tabletQTY: | | | 30 | | | tabletRefil | | | ls: | | | 3Commonly | | | known as: | | | K-DUR,KLOR- | | | CONTake 1 | | | tablet by | | | mouth | | | daily. * | | | sevelamer | | | 800 MG | | | tabletQTY: | | | 180 | | | tabletRefil | | | ls: | | | 1Commonly | | | known as: | | | RENVELATake | | | 2 tablets | | | by mouth 3 | | | (three) | | | times daily | | | with | | | meals. * | | | sevelamer | | | 800 MG | | | tabletRefil | | | ls: | | | 0Commonly | | | known as: | | | RENVELA | | | zolpidem 5 | | | MG | | | tabletQTY: | | | 10 | | | tabletRefil | | | ls: | | | 0Commonly | | | known as: | | | AMBIENTake | | | 1 tablet by | | | mouth | | | nightly as | | | needed for | | | Sleep (may | | | repeat once | | | in 1 hr if | | | initial | | | dose not | | | effective). | | | * This | | | list has 2 | | | medication( | | | s) that are | | | the same | | | as other | | | medications | | | prescribed | | | for you. | | | Read the | | | directions | | | carefully, | | | and ask | | | your doctor | | | or other | | | care | | | provider to | | | review | | | them with | | | you. You | | | might also | | | be taking | | | other | | | medications | | | not listed | | | above. If | | | you have | | | questions | | | about any | | | of your | | | other | | | medications | | | , talk to | | | the person | | | who | | | prescribed | | | them or | | | your | | | Primary | | | Care | | | Provider. | | | | | | Disposition | | | : | | | HomeConditi | | | on: | | | FairCode | | | Status: | | | Full | | | CodeDischar | | | ge took 40 | | | minutes, to | | | include | | | final | | | examination | | | , | | | discussion | | | of | | | admission, | | | and | | | preparation | | | of | | | prescriptio | | | ns, | | | instruction | | | s for | | | on-going | | | care, | | | follow-up | | | and | | | documentati | | | on of | | | discharge | | | summary.All | | | miriam | | | [id number] | | | 2 PM | +---+ + +--------+ +---+ + + | 12/07/ | Hospital | | Fito Crespo, | Spontaneous | | 2018 - | Encounter | | MD Bass, | bacterial | | | | | Ginger Woodard MD | peritonitis (HCC) | | 12/10/ | | | Hilda Edwards DO | (Primary Dx); | | 2018 | | | | Bandemia; ESRD on | | | | | | peritoneal dialysis | | | | | | ([facility]); Anemia in | | | | | | ESRD (end-stage | | | | | | renal disease) | | | | | | ([facility]); Peritonitis | | | | | | due to infected | | | | | | peritoneal dialysis | | | | | | catheter, subsequent | | | | | | encounter (HCC) | +--------+ +---+ + + +---+ + | | Discharge | | | Summaries | | | - Jerry, | | | DO Hilda | | | - | | | 12/10/2018 | | | 7:52 AM | | | PST | | | Formatting | | | of this | | | note may be | | | different | | | from the | | | original.Pa | | | tient: | | | Ramona C | | | Goatsen | | | : | | | 1980 | | | MRN: | | | [id number] | | | te of | | | Admission: | | | 12/07/2018 | | | Date of | | | Discharge: | | | 12/10/2018 | | | Treatment | | | Team: | | | Consulting | | | Physician: | | | Chago H | | | Akoum, | | | MDConsultin | | | g | | | Physician: | | | Lois | | | Paranada, | | | MDAdmitting | | | Provider: | | | Ginger | | | Vance | | | Padayatty, | | | MDDischargi | | | ng | | | Provider: | | | Hilda | | | Jerry, | | | DODischarge | | | Diagnoses: | | | Principal | | | Problem: | | | Peritonitis | | | due to | | | infected | | | peritoneal | | | dialysis | | | catheter | | | (HCC)Active | | | Problems: | | | Abdominal | | | pain ESRD | | | on | | | peritoneal | | | dialysis | | | Leukocytosi | | | sResolved | | | Problems: | | | Peritonitis | | | (HCC) | | | Procedures | | | Performed:C | | | hief | | | Complaint:A | | | bdominal | | | Pain (pt's | | | spouse | | | states "she | | | might be | | | starting a | | | peritoneal | | | infection". | | | started | | | yesterday, | | | worse | | | throughout | | | the | | | night".) | | | and Chest | | | Pain (from | | | "dry | | | heaves")[facility]os | | | pital | | | Course: | | | Ramona C | | | Goatsen is | | | a 38 y.o. | | | female who | | | was | | | admitted on | | | 12/07/2018 | | | with | | | Culture | | | negative PD | | | associated | | | | | | peritonitis | | | .The | | | patient is | | | a 38 | | | y.o. femal | | | e with | | | significant | | | past | | | medical | | | history of | | | ESRD on PD | | | and | | | hypertensio | | | n who | | | presented | | | to the ED | | | with 4 day | | | history of | | | abdominal | | | pain, | | | nausea and | | | vomiting. | | | The | | | patient | | | complains | | | of dry | | | heaving and | | | cramping | | | abdominal | | | pain, | | | ongoing | | | since the | | | past 4 | | | days. She | | | has not | | | been able | | | to eat | | | anything | | | for the | | | past 2 | | | days. | | | Labs | | | notable for | | | | | | leukocytosi | | | s to 26. PD | | | catheter | | | fluid was | | | sent for | | | analysis | | | and showed | | | cell count | | | >100. She | | | was | | | de-escalate | | | d to | | | cefoxitin | | | and | | | ultimately | | | discharged | | | home on | | | cefdinir | | | and | | | metronidazo | | | le. | | | Culture | | | negative PD | | | associated | | | | | | peritonitis | | | - Discussed | | | with Dr. | | | Akoum, for | | | PD any cell | | | count >100 | | | is | | | considered | | | positive, | | | patient's | | | PD fluid | | | came back | | | with 151 | | | WBCs/mm3 so | | | will | | | continue | | | abx- ID | | | following, | | | s/p dose of | | | zosyn in | | | ED, | | | de-escalate | | | d to | | | cefoxitan, | | | discharged | | | home on | | | cefdinir | | | and | | | metronidazo | | | le- reglan | | | works well | | | for pt, | | | okay to | | | use, | | | discontinue | | | d phenergan | | | Discharge | | | Exam and | | | Data:Vital | | | Signs:BP | | | 115/68 | | | | Pulse 82 | | | | Temp 98.8 | | | F (37.1 | | | C) (Oral) | | | | Resp 16 | | | | Ht | | | 1.575 m (5' | | | 2") | Wt | | | 81.1 kg | | | (178 lb | | | 12.7 oz) | | | | SpO2 97% | | | | BMI 32.70 | | | kg/m | | | Constitutio | | | nal: She is | | | oriented | | | to person, | | | place, and | | | time. She | | | appears | | | well-develo | | | ped and | | | well-nouris | | | hed. HENT: | | | Head: | | | Normocephal | | | ic and | | | atraumatic. | | | Eyes: | | | Pupils are | | | equal, | | | round, and | | | reactive to | | | light. | | | EOM are | | | normal. | | | Neck: | | | Normal | | | range of | | | motion. | | | Neck | | | supple. | | | Cardiovascu | | | lar: | | | Regular | | | rate, | | | normal | | | rhythm. No | | | murmursPulm | | | onary/Chest | | | : Effort | | | normal and | | | breath | | | sounds | | | normal. No | | | respiratory | | | distress. | | | She has no | | | wheezes. | | | Abdominal: | | | Soft. Bowel | | | sounds are | | | normal. No | | | | | | tenderness, | | | no | | | guarding/re | | | bound. PD | | | catheter | | | present. M | | | usculoskele | | | minh: Normal | | | range of | | | motion. She | | | exhibits | | | no edema. | | | Neurologica | | | l: She is | | | alert and | | | oriented to | | | person, | | | place, and | | | time. No | | | cranial | | | nerve | | | deficit. | | | Skin: Skin | | | is | | | warm and | | | dry. No | | | erythema. | | | Psychiatric | | | : She has a | | | normal | | | mood and | | | affect. | | | Recent Labs | | | Recent | | | LabsLab | | | | | | 8 WBC | | | 11.41* HGB | | | 10.2* HCT | | | 30.3* PLT | | | 307 Recent | | | LabsLab | | | | | | 8 NA 139 K | | | 3.6 CL 98* | | | CO2 29 BUN | | | 32* | | | CREATININE | | | 13.6* | | | Recent | | | LabsLab | | | | | | 0 INR 0.9 | | | Recent | | | Radiology | | | ResultsCt | | | Abdomen | | | Pelvis | | | Without | | | ContrastRes | | | ult Date: | | | . | | | The | | | intrinsical | | | ly complex | | | and/or | | | dense 4.5 | | | cm mass | | | arising | | | from the | | | right ovary | | | or adnexa | | | is stable | | | but could | | | be a source | | | for | | | ongoing | | | symptoms 2. | | | Stable | | | renal | | | atrophy and | | | likely | | | peritoneal | | | dialysis | | | catheter, | | | without | | | adjacent | | | fluid | | | collection | | | or | | | hemorrhage | | | along the | | | course of | | | the | | | catheter 3. | | | No | | | extralumina | | | l lesion, | | | dilatation | | | or | | | obstruction | | | but non | | | masslike | | | wall | | | thickening | | | of the | | | proximal | | | colon is | | | demonstrate | | | d. No | | | high-grade | | | adjacent | | | inflammator | | | y changes | | | or fluid | | | collection. | | | Still, | | | low-grade | | | proximal | | | colitis is | | | possible, | | | and there | | | is | | | diverticulo | | | sis Signed | | | by: | | | Jeffery, | | | Santos | | | Sign | | | Date/Time: | | | 12/07/2018 | | | 4:56 PMEcho | | | Cardiac | | | Adult | | | CompleteRes | | | ult Date: | | | . | | | Overall | | | left | | | ventricular | | | systolic | | | function is | | | normal | | | with, an EF | | | between 60 | | | - 65 %. 2. | | | There is | | | mild | | | concentric | | | left | | | ventricular | | | | | | hypertrophy | | | . 3. No | | | regional | | | wall motion | | | | | | abnormaliti | | | es. 4. The | | | right | | | ventricle | | | is normal | | | in size and | | | function. | | | 5. The left | | | atrial | | | size is | | | normal. 6. | | | There is no | | | evidence | | | of aortic | | | stenosis. | | | 7. There is | | | trace | | | mitral | | | regurgitati | | | on. 8. The | | | poor TR | | | signal | | | prevents | | | accurate | | | estimation | | | of | | | pulmonary | | | pressures. | | | 9. There is | | | no | | | pericardial | | | | | | effusion.No | | | discharge | | | procedures | | | on | | | file.Outsta | | | nding | | | Issues:None | | | .Discharge | | | Information | | | :Follow | | | up:Juan F | | | [place], | | | [id number] | | | [place] | | | d | | | [address] | | | n [place] | | | [phone] | | | [phone] | | | H Akoum, | | | [id number] | | | [address] | | | [place] | | | [address] | | | [place] | | | [phone] | | | [phone] | | | Medication | | | List START | | | taking | | | these | | | medications | | | cefdinir | | | 300 MG | | | capsuleQTY: | | | 9 | | | capsuleRefi | | | lls: | | | 0Commonly | | | known as: | | | OMNICEFTake | | | 1 capsule | | | by mouth | | | daily.Start | | | taking on: | | | 12/11/2018 | | | metoclopram | | | ayleen 5 MG | | | tabletQTY: | | | 10 | | | tabletRefil | | | ls: | | | 0Commonly | | | known as: | | | REGLANTake | | | 1 tablet by | | | mouth | | | every 8 | | | (eight) | | | hours as | | | needed for | | | Nausea for | | | up to 10 | | | days. | | | metroNIDAZO | | | LE 500 MG | | | tabletQTY: | | | 19 | | | tabletRefil | | | ls: | | | 0Commonly | | | known as: | | | FLAGYLTake | | | 1 tablet by | | | mouth | | | every 12 | | | (twelve) | | | hours. | | | CONTINUE | | | taking | | | these | | | medications | | | | | | ALPRAZolam | | | 0.5 MG | | | tabletRefil | | | ls: | | | 0Commonly | | | known as: | | | XANAX | | | amLODIPine | | | 2.5 MG | | | tabletRefil | | | ls: | | | 0Commonly | | | known as: | | | NORVASC | | | clonazePAM | | | 0.5 MG | | | tabletRefil | | | ls: | | | 0Commonly | | | known as: | | | KlonoPIN | | | ergocalcife | | | rol [address] | | | units | | | capsuleRefi | | | lls: | | | 0Commonly | | | known as: | | | DRISDOL | | | gentamicin | | | 0.1 % | | | ointmentQTY | | | : 15 | | | gRefills: | | | 1Commonly | | | known as: | | | GARAMYCINAp | | | ply | | | topically 3 | | | (three) | | | times | | | daily. | | | HYDROcodone | | | -acetaminop | | | hen 5-325 | | | MG per | | | tabletQTY: | | | 10 | | | tabletRefil | | | ls: | | | 0Commonly | | | known as: | | | NORCOTake 1 | | | tablet by | | | mouth every | | | 4 (four) | | | hours as | | | needed. | | | LORazepam 1 | | | MG | | | tabletRefil | | | ls: | | | 0Commonly | | | known as: | | | ATIVAN | | | ondansetron | | | 8 MG | | | tabletQTY: | | | 30 | | | tabletRefil | | | ls: | | | 11Commonly | | | known as: | | | ZOFRANTake | | | 1 tablet by | | | mouth | | | every 8 | | | (eight) | | | hours as | | | needed for | | | Nausea. | | | potassium | | | chloride SA | | | 20 MEQ | | | tabletQTY: | | | 30 | | | tabletRefil | | | ls: | | | 3Commonly | | | known as: | | | K-DUR,KLOR- | | | CONTake 1 | | | tablet by | | | mouth | | | daily. | | | sevelamer | | | 800 MG | | | tabletQTY: | | | 180 | | | tabletRefil | | | ls: | | | 1Commonly | | | known as: | | | RENVELATake | | | 2 tablets | | | by mouth 3 | | | (three) | | | times daily | | | with | | | meals. | | | zolpidem 5 | | | MG | | | tabletQTY: | | | 10 | | | tabletRefil | | | ls: | | | 0Commonly | | | known as: | | | AMBIENTake | | | 1 tablet by | | | mouth | | | nightly as | | | needed for | | | Sleep (may | | | repeat once | | | in 1 hr if | | | initial | | | dose not | | | effective). | | | You might | | | also be | | | taking | | | other | | | medications | | | not listed | | | above. If | | | you have | | | questions | | | about any | | | of your | | | other | | | medications | | | , talk to | | | the person | | | who | | | prescribed | | | them or | | | your | | | Primary | | | Care | | | Provider. | | | STOP | | | taking | | | these | | | medications | | | | | | promethazin | | | e 25 MG | | | tabletCommo | | | nly known | | | as: | | | PHENERGAN | | | Where to | | | Get Your | | | Medications | | | You can | | | get these | | | medications | | | from any | | | pharmacy | | | Bring a | | | paper | | | prescriptio | | | n for each | | | of these | | | medications | | | cefdinir | | | 300 MG | | | capsule | | | metoclopram | | | ayleen 5 MG | | | tablet | | | metroNIDAZO | | | LE 500 MG | | | tablet | | | Disposition | | | : | | | HomeConditi | | | on: | | | FairCode | | | Status: | | | Full | | | CodeDischar | | | ge took 35 | | | minutes, to | | | include | | | final | | | examination | | | , | | | discussion | | | of | | | admission, | | | and | | | preparation | | | of | | | prescriptio | | | ns, | | | instruction | | | s for | | | on-going | | | care, | | | follow-up | | | and | | | documentati | | | on of | | | discharge | | | summary.All | | | miriam | | | [id number] | | | 8 PM | +---+ + +--------+ +---+ + + | 11/18/ | Documentati | | Chago Rey MD | Other (October | | 2018 | on Only | | | 2018-[facility] Provider | | | | | | Dialysis Rounding | | | | | | Note) | +--------+ +---+ + + from Last 3 Months Immunizations + + + + | Name | Dates Previously Given | Next Due | + + + + | Hepatitis B Adult | 12/12/2015, 11/16/2015 | | + + + + | Influenza, Trivalent | 10/23/2015 | | | W/Preservative | | | + + + + | Pneumococcal | 11/07/2015 | | | Polysaccharide | | | | 23-valent | | | + + + + [...] + + +--------+ + | Other (see comments) | Mother | Lyubov | healthy | + + +--------+ + + +--------+--------+ + | Relation | Name | Status | Comments | + +--------+--------+ + | Father | | | | + +--------+--------+ + | Maternal Grandmother | | | | + +--------+--------+ + | Mother | Lyubov | Alive | | + +--------+--------+ + Social History + +-------+ +--------+ + [...] AM PST | + + + + Plan [...] + + | Vaccine: Influenza | | 10/23/2015 | | | (#1) | 8 | | | + + + + + | Cervical Cancer | | 04/03/2018 | | | Screening (Pap) | 3 | | | + + + + + Procedures + +--------+ + + + | [...] | + +--------+ + + + | ANNETTE, RANDOM | Routin | 12/26/2018 | | [...] | + +--------+ + + + | [facility] CARD PANEL W/O | STAT | 12/07/2018 | | Results for this | | TRP (ED ONLY) | | 3:30 PM | | procedure are in the | | | | PST | | results section. | + +--------+ + + + from Last 3 Months Results CBC W/Auto Diff (Reflex to Manual) (01/09/2019 5:46 AM)Only the most recent of 9 results w ithin the time period is included. + + + + + | Component [...] | [facility] | | | performed at [facility], [address] | | LABORATORY | | | [address], | | | | | [place] [address] | | | + + + + + + + | Specimen | + + | Blood | + + + + + + + | Performing | Address | City/State/Zipcode | Phone Number | | Organization | | | | + + + + + | [facility] | [address] [facility] | [place] [address] | [phone] | | LABORATORY | Any. | | | + + + + + Magnesium (01/09/2019 5:46 AM)Only the most recent of 9 results within the time period is included. + + + + + | Component | Value | Ref Range | Performed At | + + + + + | MAGNESIUM | 2.0Comment: Testing | 1.7 - 2.4 mg/dL | [facility] | | | performed at [facility], [address] | | LABORATORY | | | [address], | | | | | [place] [address] | | | + + + + + + + | Specimen | + + | Blood | + + + + + + + | Performing | Address | City/State/Zipcode | Phone Number | | Organization | | | | + + + + + | [facility] | [address] | [place] [address] | [phone] | | LABORATORY | [address] | | | + + + + + Basic metabolic panel (01/09/2019 5:46 AM)Only the most recent of 7 results within the is included. + + + + + | Component | Value | Ref Range | Performed At | + + + + + | SODIUM | 140 | 135 - 145 mmol/L | [facility] | | | | | LABORATORY | + + + + + | POTASSIUM | 4.2 | 3.5 - 4.9 mmol/L | [facility] [...] | | | | | performed at [facility], [address] | | | | | [facility], | | | | | [place] [address] | | | + + + + + + + | Specimen | + + | Blood | + + + + + + + | Performing | Address | City/State/Zipcode | Phone Number | | Organization | | | | + + + + + | [facility] | [address] [facility] [address] | [place] [address] | [phone] | | LABORATORY | [address]vd[address] | | | + + + + + Comprehensive metabolic panel (01/07/2019 5:18 AM)Only the most recent of 4 results within the time period is included. + + + + + | Component [...] the | | | | | MDRD IDNY traceable | | | | | equation.Testing | | | | | performed at [facility], [address] | | | | | [facility], | | | | | [place] [address] | | | + + + + + + + | Specimen | + + | Blood | + + + + + + + | Performing | Address | City/State/Zipcode | Phone Number | | Organization | | | | + + + + + | [facility] | [address] | [place] [address] | [phone] | | LABORATORY | Blvd[address] | | | + + + + + PROCALCITONIN (01/06/2019 5:29 AM) + + + + + | Component | Value | Ref Range | Performed At | + + + + + | PROCALCITONIN | 0.82 (H)Comment: | <0.5 ng/mL | [facility] | | | INTERPRETIVE | | [...] performed | | | | | at [facility] [place];[address] [place] [address] | | | | | [facility];[place] [address] | | | + + + + + + + + + + | Performing | Address | City/State/Zipcode | Phone Number | | Organization | | | | + + + + + | [facility] | [address] | [place] [address] | | + + + + + C-reactive protein (01/06/2019 5:29 AM)Only the most recent of 2 results within the time garfield drake is included. + + + + + | Component | Value | Ref Range | Performed At | + + + + + | CRP | 0.3Comment: Testing | <0.5 mg/dL | [facility] | | | performed at [facility], [address] | | LABORATORY | | | [facility], | | | | | [place] [address] | | | + + + + + + + | Specimen | + + | Blood | + + + + + + + | Performing | Address | City/State/Zipcode | Phone Number | | Organization | | | | + + + + + | [facility] | [address] [place] [address] | [place] [address] | [phone] | | LABORATORY | Any. | | | + + + + + Phosphorus (01/06/2019 5:29 AM)Only the most recent of 5 results within the time period is included. + + + + + | Component | Value | Ref Range | Performed At | + + + + + | PHOSPHORUS | 8.8 (H)Comment: Testing | 2.3 - 4.8 mg/dL | [facility] | | | performed at [facility], [address] | | LABORATORY | | | [address], | | | | | [place] [address] | | | + + + + + + + | Specimen | + + | Blood | + + + + + + + | Performing | Address | City/State/Zipcode | Phone Number | | Organization | | | | + + + + + | [facility] | [address] [facility] [address] | [place] [address] | [phone] | | LABORATORY | Blvd[address] | | | + + + + + Troponin I (01/05/2019 11:47 AM)Only the most recent of 6 results within the time period is included. + + + + + | Component | Value | Ref Range | Performed At | + + + + + | TROPONIN I | 0.074 (H)Comment: 0.04 | 0.00 - 0.04 ng/mL | [facility] | | | ng/mL or | [...] performed | | | | | at [facility] [place];[address] | | | [address];[place] [address] | | | + + + + + + + | Specimen | + + | Blood | + + + + + + + | Performing | Address | City/State/Zipcode | Phone Number | | Organization | | | | + + + + + | [facility] | [address] | [place] [address] | | + + + + + Protime-INR (01/05/2019 5:42 AM) + + + + + | Component | Value | Ref Range | Performed At | + + + + + | INR | 1.1Comment: REFERENCE | | [facility] | | | RANGE:0.9 - | [...] | | | | | performed at [facility] [place];[address] | | | | | [address];[place], [place] | | | | | [address] | | | + + + + + + + | Specimen | + + | Blood | + + + + + + + | Performing | Address | City/State/Zipcode | Phone Number | | Organization | | | | + + + + + | [facility] | [address] | [place] [address] | | + + + + + [...] | 39Comment: Testing | <100 mg/dL | [facility] | | | performed at [facility], [address] | | LABORATORY | | | [address] | | | | | [place] [address] | | | + + + + + + + | Specimen | + + | Blood | + + + + + + + | Performing | Address | City/State/Zipcode | Phone Number | | Organization | | | | + + + + + | [facility] | [address] | [place] [address] | [phone] | | LABORATORY | Blvd[address] | | | + + + + + EKG 12 LEAD UNIT PERFORMED (01/05/2019 12:55 AM)Only the most recent of 2 results within time period is included. + + + + + | Component [...] + + + + | Calculated P [place] | 27 | degrees | [facility] | + + + + + | Calculated R [place] | 79 | degrees | [facility] | + + + + + | Calculated T [place] | -142 | degrees | [facility] | + + + + + | Diagnosis | Normal sinus rhythm with | | [facility] | | | sinus arrhythmiaST & [...] ECG of | | | | | -DEC-2018 | | | | | 07:46,Minimal criteria | | | | | for Inferior infarct are | | | | | no longer PresentT wave | | | | | inversion now evident | | | | | in Inferior | | | | | leadsConfirmed by MUSE | | | | | READ ONLY, -COMPUTER | | | | | (500), editorial writer Collin, | | | | | Rashel Mercado ([id number]) on | | | | | 01/05/2019 3:50:25 AM | | | + + + + + + + + + + | Performing | Address | City/State/Zipcode | Phone Number | | Organization | | | | + + + + + | [facility] | [address] | [place] [address] | | + + + + + ED INFORMATION EXCHANGE (01/04/2019 10:36 PM) + + + | Narrative | Performed At | + + + | [id number] [id number] Criteria Met Care | ED | | Guidelines in 12 2 in 2 Security and Safety No | INFORMATION | | recent Security Events currently on file ED Care Guidelines There | EXCHANGE | | are currently no ED Care Guidelines for this patient. Please check | | | your facility's medical records system. Care History | | | Medical/Surgical 06/10/18 12:00 AM [facility] | | | Patient has not followed up with PCP in regards to ED visits. Last | | | time patient was seen by PCP was 06/10/17. Patient has done | | | multiple no shows to [facility]. Patient has been | | | seen by [facility] infectious disease for follow up by [...] | (12 mo.) Facility Visits Low Acuity [facility] | | | 5 0 [facility] 5 0 Total 10 0 Note: Visits | | | indicate total known visits. Medicaid Low Acuity Dx are the number of | | | primary diagnoses on the Medicaid's Low Acuity dx list. Recent | | | Emergency Department Visit Summary Date Facility City State Type | | | Diagnoses or Chief Complaint Jan 04, 2019 [facility] Lexi.Winnie | | | [place] Emergency Jan 04, 2019 [facility]. [place] | | | Emergency Chief Complaint: DEHYDRATION/CONSTIPATION Dec 31, | | | 2018 [facility] [place]. [place] Emergency Other halfway | | | (current) drug therapy Anxiety disorder, unspecified | | | Dependence on renal dialysis Essential (primary) hypertension | | | Dec 24, 2018 [facility] 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 [place] Emergency Abdominal Pain | | | Chest Pain Spontaneous bacterial peritonitis | | | Bandemia Dependence on renal dialysis End stage renal | | | disease Jun 07, 2018 [facility] [place] Emergency | | | Peritonitis, unspecified Panic disorder [episodic | | | paroxysmal anxiety] Chronic kidney disease, unspecified | | | Dependence on renal dialysis Jun 04, 2018 [facility] Lexi.CIris | | | [place] Emergency Flank Pain Unspecified abdominal | | | pain Dependence on renal dialysis Patient's | | | noncompliance with other medical treatment and regimen End | | | stage renal disease Noninflammatory disorder of ovary, | | | fallopian tube and broad ligament, unspecified March 16, 2018 [facility] | | [facility] abdominal pain | | | Chronic kidney disease, unspecified Hypotension, unspecified | | | Unspecified abdominal pain [facility] | | [place] Emergency Unspecified abdominal pain | | | Peritonitis, unspecified Infection and inflammatory reaction | | | due to other cardiac and vascular devices, implants and grafts, | | | initial encounter Dependence on renal dialysis Other | | | halfway (current) drug therapy Essential (primary) | | | hypertension Mar 04, 2018 [facility] | | | Emergency Emesis Abdominal Pain Recent | | | Inpatient Visit Summary Date Facility City State Type Diagnoses or | | | Chief Complaint [facility], 2018 [facility] | | | Medicine Unspecified abdominal pain End stage renal | | | disease Dependence on renal dialysis Dec 07, 2018 [facility] | | | [facility] Bandemia | | | Spontaneous bacterial peritonitis End stage renal disease | | | Dependence on renal dialysis Peritonitis, unspecified | | | Infection and inflammatory reaction due to peritoneal dialysis | | | catheter, subsequent encounter Anemia in chronic kidney disease | | | Jun 07, [facility] | | | Bacterial peritonitis End stage renal disease | | | Dependence on renal dialysis March 16, 2018 [facility] | | | [facility] General Medicine Chronic kidney disease, | | | unspecified Hypotension, unspecified Unspecified | | | abdominal pain Dependence on renal dialysis End stage | | | renal disease Noninflammatory disorder of ovary, fallopian tube | | | and broad ligament, unspecified Mar 04, 2018 [facility] | | | [facility] Recovery Emesis Abdominal Pain | | | Generalized abdominal pain Dependence on renal dialysis | | | End stage renal disease Nausea with vomiting, unspecified | | | Care Providers Provider PRC Type Phone Fax Service Dates | | | JUAN F WHITLEY MD Family Medicine Jun 08, 2018 - Current | | | MailMag This patient has registered at the [facility] | | | [facility] Emergency Department For more information visit: | | | [email or web address] | | | [id number] The above information is provided for the sole purpose of | | | patient treatment. Use of this information beyond the terms of Data | | | Sharing Memorandum of Understanding and License Agreement is | | | prohibited. In certain cases not all visits may be represented. | | | Consult the aforementioned facilities for additional information. | | | 2019 [employer] - [place], [place] - | | | | | + + + + + | Procedure Note | + + | Interface, Lab - 01/04/2019 10:38 PM PST Formatting of this note may be different | | from the original.[id number] [id number] Met Care Guidelines 10 in 12 | | 2 in 2Security and SafetyNo recent Security Events currently on fileED Care | | GuidelinesThere are currently no ED Care Guidelines for this patient. Please check your | | facility's medical records system.Care HistoryMedical/Surgical06/10/18 12:00 AM [facility]. | | [facility] Patient has not followed up with PCP in regards to ED visits. Last | | time patient was seen by PCP was 06/10/17. Patient has done multiple no shows to | | [facility]. Patient has been seen by [facility] infectious disease for follow | | up [...] Visit Count (12 mo.)Facility Visits Low Acuity [facility] | [facility] 5 0 [facility] 5 0 Total 10 0 Note: Visits indicate total | | known visits. Medicaid Low Acuity Dx are the number of primary diagnoses on the | | Medicaid's Low Acuity dx list. Recent Emergency Department Visit SummaryDate Facility | | City State Type Diagnoses or Chief Complaint Jan 04, 2019 Linda Moe Greenberg [place] | | Emergency Jan 04, 2019 [facility] Graff [place] Emergency Chief Complaint: | | DEHYDRATION/CONSTIPATION Dec 31, 2018 [facility]IA[facility]illo [place]. [place] Emergency Other | | long term care phlebotomist (current) drug therapy Anxiety disorder, unspecified Dependence on renal | | dialysis Essential (primary) hypertension Dec 24, 2018 [facility] 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 [place] Emergency Peritonitis, unspecified Panic disorder | | [episodic paroxysmal anxiety] Chronic kidney disease, unspecified Dependence on | | renal dialysis Jun 04, 2018 [facility] Moe Greenberg MD Emergency Flank Pain | | Unspecified abdominal pain Dependence on renal dialysis Patient's noncompliance | | with other medical treatment and regimen End stage renal disease Noninflammatory | | disorder of ovary, fallopian tube and broad ligament, unspecified March 16, 2018 [facility] | | Moe Greenberg MD Emergency abdominal pain Chronic kidney disease, | | unspecified Hypotension, unspecified Unspecified abdominal pain March 11, 2018 [facility] | | [facility] [place] Emergency Unspecified abdominal pain Peritonitis, | | unspecified Infection and inflammatory reaction due to other cardiac and vascular | | devices, implants and grafts, initial encounter Dependence on renal dialysis Other | | halfway (current) drug therapy Essential (primary) hypertension Mar 04, 2018 | | Linda Moe Greenberg MD Emergency Emesis Abdominal Pain Recent Inpatient | | Visit SummaryDate Facility City State Type Diagnoses or Chief Complaint Dec 24, 2018 | | [facility] Moe Greenberg MD General Medicine Unspecified abdominal pain End | | stage renal disease Dependence on renal dialysis Dec 07, 2018 [facility] Jairo | | [facility] Bandemia Spontaneous bacterial peritonitis End stage | | renal disease Dependence on renal dialysis Peritonitis, unspecified Infection | | and inflammatory reaction due to peritoneal dialysis catheter, subsequent encounter | | Anemia in chronic kidney disease Jun 07, 2018 [facility] Jairo Greenberg MD General | | Medicine Bacterial peritonitis End stage renal disease Dependence on renal | | dialysis March 16, 2018 [facility] Jairo Greenberg MD General Medicine Chronic kidney | | disease, unspecified Hypotension, unspecified Unspecified abdominal pain | | Dependence on renal dialysis End stage renal disease Noninflammatory disorder of | | ovary, fallopian tube and broad ligament, unspecified Mar 04, 2018 [facility] Moe Gill | | [place] Recovery Emesis Abdominal Pain Generalized abdominal pain | | Dependence on renal dialysis End stage renal disease Nausea with vomiting, | | unspecified Care ProvidersProvider PRC Type Phone Fax Service Dates JUAN F WHITLEY MD | | Family Medicine Jun 08, 2018 - Current Secure-24 PortalThis patient has registered | | at the [facility] Emergency Department For more information visit: | | [email or web address] The above | | information is provided for the sole purpose of patient treatment. Use of this | | information beyond the terms of Data Sharing Memorandum of Understanding and License | | Agreement is prohibited. In certain cases not all visits may be represented. Consult the | | aforementioned facilities for additional information. 2019 [employer] | | [employer] - [place], [place] - | |Jun 07, [address] [facility] [place] Emergency | | Peritonitis, unspecified | | Panic disorder [episodic paroxysmal anxiety] | | Chronic kidney disease, unspecified | | Dependence on renal dialysis | | | |Jun 04, 2018 [facility] Jairo Greenberg MD Emergency | | Flank Pain | | Unspecified abdominal pain | | Dependence on renal dialysis | | Patient's noncompliance with other medical treatment and regimen | | End stage renal disease | | Noninflammatory disorder of ovary, fallopian tube and broad ligament, unspecified | | | |March 16, 2018 [facility] Emergency | | abdominal pain | | Chronic kidney disease, unspecified | | Hypotension, unspecified | | Unspecified abdominal pain | | | |March 11, 2018 [facility] [place] Emergency | | Unspecified abdominal pain | | Peritonitis, unspecified | | Infection and inflammatory reaction due to other cardiac and vascular devices, implants and grafts, initial encounter | | Dependence on renal dialysis | | Other long term care phlebotomist (current) drug therapy | | Essential (primary) hypertension | | | |Mar 04, 2018 [facility] Emergency | | Emesis | | Abdominal Pain | | | | | | | |Recent Inpatient Visit Summary | |Date Facility City State Type Diagnoses or Chief Complaint | |Dec 24, 2018 [facility] General Medicine | | Unspecified abdominal pain | | End stage renal disease | | Dependence on renal dialysis | | | |Dec 07, 2018 [facility] General Medicine | | Bandemia | | Spontaneous bacterial peritonitis | | End stage renal disease | | Dependence on renal dialysis | | Peritonitis, unspecified | | Infection and inflammatory reaction due to peritoneal dialysis catheter, subsequent enco unter | | Anemia in chronic kidney disease | | | |Jun 07, 2018 [facility] General Medicine | | Bacterial peritonitis | | End stage renal disease | | Dependence on renal dialysis | | | |March 16, 2018 [facility] General Medicine | | Chronic kidney disease, unspecified | | Hypotension, unspecified | | Unspecified abdominal pain | | Dependence on renal dialysis | | End stage renal disease | | Noninflammatory disorder of ovary, fallopian tube and broad ligament, unspecified | | | |Mar 04, 2018 [facility] Recovery | | Emesis | | Abdominal Pain | | Generalized abdominal pain | | Dependence on renal dialysis | | End stage renal disease | | Nausea with vomiting, unspecified | | | | | | | |Care Providers | |Provider PRC Type Phone Fax Service Dates | |JUAN F WHITLEY MD Family Medicine Jun 08, 2018 - Current | | | |Collective Portal | |This patient has registered at the [facility] Emergency Department | |For more information visit: [email or web address] | |The above information is provided for the sole purpose of patient treatment. Use of this in formation beyond the terms of Data Sharing Memorandum of Understanding and License Agreement is prohibited. In | |certain cases not all visits may be represented. Consult the aforementioned facilities for additional information. | |2019 [email or web address] - [place], [place] - [email or web address] | + + + +---------+ + + | Performing | Address | City/State/Zipcode | Phone Number | | Organization | | | | + +---------+ + + | ED INFORMATION | | | | | EXCHANGE | | | | + +---------+ + + PERITONEAL DIALYSIS (CAPD) (12/27/2018 9:45 AM) + + + | Narrative | Performed At | + + + | Chago Rey MD 01/12/2019 2:32 PM Hospital Problem List: [...] HYDROcodone-acetaminophen, HYDROmorphone OR | | | HYDROmorphone, qypcwlavd-kukgbi-gmjwlqgomf, ondansetron OR | | | ondansetron, polyethylene [...] | | last 3 completed shifts: In: 60807 [P.O.:250; Other:58778] Out: | | | 12501 [Emesis/NG output:200; Other:73202] Assessment: Ms. Oconnor | | | is [...] | changes with the author on 04/26. Chago Rey MD | | + + + CBC w/no Diff (12/27/2018 [...] | [facility] | | | performed at [facility], [address] | | LABORATORY | | | [address], | | | | | [place] [address] | | | + + + + + + + + + + | Performing | Address | City/State/Zipcode | Phone Number | | Organization | | | | + + + + + | [facility] | [address] [place] [address] | [place] [address] | [phone] | | LABORATORY | [address] | | | + + + + + lilian Bernard (12/27/2018 5:44 AM)Only the most recent of 2 results within the time garfield drake is included. + + + + + | Component | Value | Ref Range | Performed At | + + + + + | VANCOMYCIN,RANDOM | 20.5Comment: Testing | ug/mL | [facility] | | | performed at [facility] [place] [place];[address] | | | | | [address];[place], [place] | | | | | [address] | | | + + + + + + + | Specimen | + + | Blood | + + + + + + + | Performing | Address | City/State/Zipcode | Phone Number | | Organization | | | | + + + + + | [facility] | [address] | [place] [address] | | + + + + + PERITONEAL DIALYSIS (CAPD) (12/26/2018 9:36 AM) + + + | Narrative | Performed At | + + + | Chago Rey MD 01/12/2019 2:31 PM Hospital Problem List: [...] Infusions: | | | cefTAZidime 1 g (12/26/18 0628) | | | famotidine | | | vancomycin PRN Meds:.acetaminophen OR acetaminophen, | | | ALPRAZolam, HYDROcodone-acetaminophen, HYDROmorphone OR | | | HYDROmorphone, wupnkuwxe-tgcfdy-fqkncgpvsm, ondansetron OR | | | ondansetron, polyethylene [...] Low phos in diet stressed PD tomorrow Chago Rey, | | | MD | | + + + EKG STANDARD 12 LEAD (12/26/2018 7:46 AM) + + + + + | Component | Value | Ref Range | Performed At | + + + + + | Ventricular Rate | 66 | BPM | [facility] [...] + + + + | Calculated P [place] | 3 | degrees | [facility] | + + + + + | Calculated R [place] | 35 | degrees | [facility] | + + + + + | Calculated T [place] | 134 | degrees | [facility] [...] availableConfirmed by | | | | | CHAGO NATION MD ([id number]) | | | | | on 12/27/2018 7:44:23 PM | | | + + + + + + + + + + | Performing | Address | City/State/Zipcode | Phone Number | | Organization | | | | + + + + + | [facility] | [address] | [place] [address] | | + + + + + Renal function panel (12/26/2018 5:38 AM) + + + + + | Component | Value | Ref Range | Performed At | + + + + + | SODIUM | 141 | 135 - 145 mmol/L | [facility] | + + + + + | POTASSIUM | 3.5 | 3.5 - 4.9 mmol/L | [facility] | + + + + + | CHLORIDE | 98 (L) | 99 - 109 mmol/L | [facility] | + + + + + | CO2 | 23 | 23 - 32 mmol/L | [facility] | + + + + + | ANION GAP AGAP | 24 (H) | 5 - 20 mmol/L | [facility] | + + + + + | GLUCOSE | 94 | 65 - 99 mg/dL | [facility] | + + + + + | BUN | 22 | 8 - 25 mg/dL | [facility] | + + + + + | CREATININE | 13.11 (H) | 0.50 - 1.00 mg/dL | [facility] | + + + + + | CALCIUM | 8.3 (L) | 8.5 - 10.5 mg/dL | [facility] | + + + + + | Albumin | 3.9 | 3.6 - 5.0 g/dL | [facility] | + + + + + | PHOSPHORUS | 8.7 (H) | 2.3 - 4.8 mg/dL | [facility] | + + + + + | EGFR | 3 (L)Comment: GFR <60: | >60 mL/min/1.73m2 | [facility] | | | CHRONIC KIDNEY DISEASE, [...] the | | | | | MDRD [facility] traceable | | | | | equation.Testing | | | | | performed at [facility] [place];[facility] | | | | | [facility];[place], [place] | | | | | [address] | | | + + + + + + + | Specimen | + + | Blood | + + + + + + + | Performing | Address | City/State/Zipcode | Phone Number | | Organization | | | | + + + + + | [facility] | [address] | [place] [address] | | + + + + + C&S (12/25/2018 2:50 AM)Only the most recent of 2 results within the time period is includ ed. + + + + + | Component [...] | + + + + + | [facility] | [address] | [place] [address] | [phone] | | LABORATORY | [address]vd[address] | | | + + + + + Body fluid cell count (12/25/2018 2:50 AM)Only the most recent of 2 results within the is included. + + + + + | Component | Value | Ref Range | Performed At | + + + + + | FLUID TYPE | PERITONEAL | | [facility] | + + + + + | COLOR | COLORLESS | | [facility] | + + + + + | APPEARANCE | CLEAR | | [facility] | + + + + + | RBC'S | <96366 | /mm3 | [facility] | + + + + + | TOTAL NUCLEATED | 109 | /mm3 | [facility] | | CELLS | | | | + + + + + | NEUTROPHILS | 92 | % | [facility] | + + + + + | LYMPHOCYTES | 5 | % | [facility] | + + + + + | MONOCYTES/MACROPHAGE | 3 | % | [facility] | | S | | | | + + + + + | CELLS COUNTED | 100Comment: Testing | | [facility] | | | performed at [facility] [place];[address] | | | | | [address];[place] | | | | | [address] | | | + + + + + + + | Specimen | + + | Other - Peritoneal | | [place] | + + + + + + + | Performing | Address | City/State/Zipcode | Phone Number | | Organization | | | | + + + + + | [facility] | [address] | [place] [address] | | + + + + + Blood Culture Set 2 (12/25/2018 2:09 AM)Only the most recent of 2 results within the time period is included. + + + + + | Component | Value | Ref Range | Performed At | + + + + + | Specimen Description | BLOOD | | [facility] | | | | | LABORATORY | + + + + + | SPECIAL REQUESTS | LEFT WRIST | | [facility] | + + + + + [...] | + + + + + | [facility] | [address] | [place] [address] | [phone] | | LABORATORY | Any. | | | + + + + + | [facility] | [address] | [place] [address] | | + + + + + [...] | + + + + + | [facility] | [address] | [place] [address] | [phone] | | LABORATORY | Any. | | | + + + + + | [facility] | [address] | [place] [address] | | + + + + + MRSA by PCR (12/25/2018 1:29 AM)Only the most recent of 2 results within the time period i s included. + + + + + | Component | Value | Ref Range | Performed At | + + + + + | SOURCE | NARES(NOSE) | | [facility] | + + + + + | MRSA PCR | NEGATIVEComment: Testing | NEGATIVE | [facility] | | | performed at [facility] [place] [place];[address] | | | | | [address];[place], [place] | | | | | [address] | | | + + + + + + + | Specimen | + + | Nasopharyngeal - | | Nares(Nose) | + + + + + + + | Performing | Address | City/State/Zipcode | Phone Number | | Organization | | | | + + + + + | [facility] | [address] | [place] [address] | | + + + + + PERITONEAL DIALYSIS (12/10/2018 11:02 AM) + + + | Narrative | Performed At | + + + | Chago Rey MD 12/16/2018 5:34 PM Hospital Problem [...] 3 completed | | | shifts: In: 76493 [P.O.:1110; I.V.:2701; Other:57328] Out: 78319 | | | [Emesis/NG output:240; Other:15488] Assessment: Ms. Oconnor is a | | [...] time of this encounter. | | | CHAGO REY MD | | + + + PERITONEAL DIALYSIS (12/09/2018 8:19 AM) + + + | Narrative | Performed At | + + + | BALJIT Guerrier 12/09/2018 3:07 PM Hospital | | | [...] 3 completed | | | shifts: In: 85172 [P.O.:1200; I.V.:2902; Other:01537] Out: 63616 | | | [Other:70131] Assessment: Ms. Oconnor is a 38 y.o. [...] BALJIT Guerrier | | + + + CBC w/manual diff (12/09/2018 [...] | LABORATORY | | | performed at [facility], [address] | | | | | [address], | | | | | [place] [address] | | | | | | | | + + + + + + + | Specimen | + + | Blood | + + + + + + + | Performing | Address | City/State/Zipcode | Phone Number | | Organization | | | | + + + + + | [facility] | [address] | [place] [address] | [phone] | | LABORATORY | [address] | | | + + + + [...] RAMONA OCONNOR Date of : 1980 | [facility] | | Performing Physician: Imtiaz Mari [...] RV | | | S': 0.11 m/s Ballistics Expert Forensic: NAVJOT Authenticated by: Imtiaz Mari | | | Report Date/Time: 12-08-2018 17:48:59 | | + + + + + | Procedure Note | + + | Endy, Rad Results In - 12/08/2018 5:49 PM PST Patient Name: Shlomo OCONNOR of | | : 1980Accession: [id number] Physician: Imtiaz Mari | | MD INDICATIONS p | | leuritic chest painCONCLUSIONS [...] mlLAESV Index (A-L): 26.00 ml/m2LAAs A2C: 16.18 [id number] | | A-L A2C: 41.14 mlLALs A2C: 5.40 cmLAAs A4C: 18.51 mn4PSQMS A-L A4C: 51.64 | | mlLALs A4C: 5.63 cmTAPSE: 1.80 cmAV maxP.66 mmHgAV meanP.54 mmHgAV Vmax: | | 1.38 m/Monica Vmean: 1.00 m/Monica VTI: 26.68 cmAVA Vmax: 2.35 cm2AVA (VTI): 2.52 | | fl4HLBG Vmax: 0.00 cm2/m2AVAI (VTI): 0.00 cm2/m2LVOT maxP.36 [...] |RV S': 0.11 m/s | | | |Ballistics Expert Forensic: MW | |Authenticated by: Imtiaz Mari MD [...] | + + + + + | [facility] | [address] | [place] [address] | | + + + + + PERITONEAL DIALYSIS (12/08/2018 11:45 AM) + + + | Narrative | Performed At | + + + | Demar BALJIT Cho 12/08/2018 2:18 PM Hospital | | | [...] BALJIT Guerrier | | + + + CT abdomen pelvis without [...] + + | Endy, Rad Results In 12/07/2018 4:[address] ABDOMEN AND [...] | + + + + + | [facility] | [address] | [place] [address] | | + + + + + [...] | + + + + + | [facility] | [address] | [place] [address] | | + + + + + [...] radiographic studies | | + + + Cardiac Panel (12/07/2018 3:30 PM) + + + + + | Component | Value | Ref Range | Performed At | + + + + + | WBC | 26.34 (H) | 3.80 - 11.00 K/uL | [facility] | + + + + + | RBC | 4.73 | 3.70 - 5.10 M/uL | [facility] | + + + + + | HGB | 13.6 | 11.3 - 15.5 g/dL | [facility] | + + + + + | HCT | 40.9 | 34.0 - 46.0 % | [facility] | + + + + + | MCV | 86.4 | 80.0 - 100.0 fl | [facility] | + + + + + | MCH | 28.8 | 27.0 - 34.0 pg | [facility] | + + + + + | MCHC | 33.4 | 32.0 - 35.5 g/dL | [facility] | + + + + + | RDW SD | 45.1 | 37 - 53 fl | [facility] | + + + + + | PLT | 484 (H) | 150 - 400 K/uL | [facility] | + + + + + | MPV | 8.0 | fl | [facility] | + + + + + | DIFF TYPE | MANUAL | | [facility] | + + + + + | Neutrophils Manual | 78 | % | [facility] | + + + + + | Bands | 10 | % | [facility] | + + + + + | METAMYELOCYTES | 1 | % | [facility] | + + + + + | Lymphocytes Manual | 9 | % | [facility] | + + + + + | Monocytes Manual | 2 | % | [facility] | + + + + + | Neutrophils Absolute | 20.55 (H) | 1.90 - 7.40 K/uL | [facility] | + + + + + | Bands Manual | 2.63 (H) | 0.00 - 0.20 K/uL | [facility] | + + [...] | Platelet Estimate | INCREASED | | [facility] | + + [...] (L) | 99 - 109 mmol/L | [facility] | + + [...] 9.4 | 8.5 - 10.5 mg/dL | [facility] | + + + + + | TOTAL PROTEIN | 8.7 (H) | 6.3 - 8.2 g/dL | [facility] | + + + + + | Albumin | 4.9 | 3.6 - 5.0 g/dL | [facility] | + + + + + | GLOBULIN | 3.8 | 1.3 - 4.9 g/dL | [facility] | + + + + + | A/G | 1.3 | 1.0 - 2.4 | [facility] | + + + + + | TBIL | 0.2 | 0.1 - 1.5 mg/dL | [facility] | + + + + + | ALK PHOS | 126 (H) | 35 - 115 U/L | [facility] | + + + + + | AST | 15 | 10 - 45 U/L | [facility] | + + + + + | ALT | 11 | 10 - 65 U/L | [facility] | + + + + + | EGFR | 3 (L)Comment: GFR <60: | >60 mL/min/1.73m2 | [facility] | | | CHRONIC KIDNEY DISEASE, [...] 146 | 30 - 240 U/L | [facility] | + + + + + | INR | 0.9Comment: REFERENCE | | [facility] | | | RANGE:0.9 - | [...] 28 | 23 - 32 seconds | [facility] | + + + + + | MMB | 1.7 | 0.5 - 3.6 ng/mL | [facility] | + + + + + | CK-MB Index | 1.2Comment: CK INDEX | | [facility] | | | INTERPRETATION: | | [...] | | | | | performed at [facility] [place] [place];[facility] | | | | | [address];[place] | | | | | [address] | | | + + + + + + + + + + | Performing | Address | City/State/Zipcode | Phone Number | | Organization | | | | + + + + + | [facility] | [address] | [place] [address] | | + + + + + D-dimer, quantitative (12/07/2018 3:30 PM) + + + + + | Component | Value | Ref Range | Performed At | + + + + + | D DIMER, | 0.34Comment: Testing | 0.19 - 0.50 mg/L FEU | [facility] | | QUANTITATIVE | performed at [facility] [place], [place];[address];[place] | | | | | [address] | | | + + + + + + + | Specimen | + + | Blood | + + + + + + + | Performing | Address | City/State/Zipcode | Phone Number | | Organization | | | | + + + + + | [facility] | [address] | [place] [address] | | + + + + + BNP (12/07/2018 3:30 PM) + + + + + | Component | Value | Ref Range | Performed At | + + + + + | BRAIN NATRIURETIC | 50.36Comment: Testing | 0 - 100 pg/mL | [facility] | | PEPTIDE | performed at [facility] [place] [place];[address] | | | | | [address];[place] | | | | | [address] | | | + + + + + + + | Specimen | + + | Blood | + + + + + + + | Performing | Address | City/State/Zipcode | Phone Number | | Organization | | | | + + + + + | [facility] | [address] | [place] [address] | | + + + + + Lipase (12/07/2018 3:30 PM) + + + + + | Component | Value | Ref Range | Performed At | + + + + + | LIPASE | 51Comment: NOTE NEW | 12 - 53 U/L | [facility] | | | REFERENCE RANGETesting | | | | | performed at [facility] [place] [place];[facility] | | | | | [address];[place], [place] | | | | | [address] | | | + + + + + + + | Specimen | + + | Blood | + + + + + + + | Performing | Address | City/State/Zipcode | Phone Number | | Organization | | | | + + + + + | [facility] | [address] | [place] [address] | | + + + + + from Last 3 Months Insurance + +--------+ +------+-------+ + | Payer | Benefi | Subscriber | Type | Phone | Address | | | t Plan | ID | | | | | | / | | | | | | | Group | | | | | + +--------+ +------+-------+ + | PREMERA | PREMER | [id number] | | | [address] [address] | | | A BLUE | | | | [place], [place] | | | [place] | | | | [phone] | | | FED | | | | | | | PPO | | | | | + +--------+ +------+-------+ + | MEDICARE | MEDICA | [id number] | | | [address] | | | RE | | | | [place] [phone] | | | PART A | | | | | | | ONLY | | | | | + +--------+ +------+-------+ + | /[facility] | YELLOW | [id number] | | | | | PLANS | [place] | | | | | + +--------+ +------+-------+ + + +--------+ +--------+ + + | Guarantor Name | Accoun | Relation to | Date | Phone | Billing Address | | | t Type | Patient | of | | | | | | | | | | + +--------+ +--------+ + + | RAMONA OCONNOR | Person | Self [birth year] | Home: | [address] | | | al/Fam | | 1979 | [phone] [place], [place] | | | caesar | | | [phone] | [phone] | + +--------+ +--------+ + +
--- OUTSIDE RECORDS SUMMARY | ~2019-01-31 | XMS | Encounter Summary ---
Demographics + + + | Address | [address] | | | [place] [address] | + + + | Home Phone | | + + + | Preferred Language | Unknown | + + + | Marital Status | | + + + | Yazidi Affiliation | Unknown | + + + | Race | Unknown | + + + | Ethnic Group | Unknown | + + + Author + + + | Author | [facility] [employer] | + + + | Organization | [facility] [employer] | + + + | Address | Unknown | + + + | Phone | Unavailable | + + + Support + + + + + | Name | Relationship | Address | Phone | + + + + + | Lyubov Smalls | MAHSA | [place] | | | | | [address] | | + + + + + | Lydia Palm | ECON | [place] | | | | | [address] | | + + + + + | Jose C Oconnor | ECON | [address] | | | | | [place] | | | | | [address] | | + + + + + Care Team Providers + +------+ + | Care Ophthalmology Assistant Name | Role | Phone | [...] | | General | Diagnoses | | [facility] | | | | Surgery | Hypokalemia | | Surgical [address] | | | | | | [address] | | | | | Diverticulit | | [place], [place] | | | | | is ESRD on | | [address] Phone: | | | | | peritoneal | | [phone] | | | | | dialysis | | Fax: | | | | | ([facility]) | | [phone] | +--------+--------+ + + + + Encounter Details +--------+ + + + + | Date | Type | Department | Care Team | Description | +--------+ + + + + | 01/05/ | Hospital | Located Within [facility] | [place], | Diverticulitis | | 2019 - | Encounter | [facility] | [address] | (Primary Dx); | | | | Surgical [address] | [place] [address] | Hypokalemia; ESRD on | | 01/09/ | | Blvd [place], [place] | [phone] | peritoneal dialysis | | 2018 | | [address] | | (HCC); End-stage | | | | | Salvador Ruiz MD | renal disease on | | | | | [address] | peritoneal dialysis | | | | | [place] [address] | (HCC) | | | | | [phone] | | | | | | | | | | | | Chris Smart MD | | | | | | [address] | | | | | | [place] [address] | | | | | | [phone] | | | | | | | [...] may be different from victor manuel [place]. [facility] Service: Hospitalist Physician Discharge Summary Pt: Ramona Oconnor AGE/SEX: 38 y.o. female ROOM: 431/431-1 PCP: JUAN F WHITLEY : 1980 Admit date: 01/05/2019 Discharge date and time: 01/09/2019 10:14 AM Admitting Physician: Salvador Ruiz MD Discharge Physician: Chris Smart MD Consults: DR. oMnte Primary Discharge Diagnoses: Principal Problem: Diverticulitis Active [...] Refills: 0 Commonly known as: NORVASC ergocalciferol 91476 units capsule Refills: 0 Commonly known as: [...] if needed. Follow-[place]: [place] [address] [place] [id number] In 1 week Santos Chi MD [address] [place] [address] In 1 week Discharge took more than 35 minutes, to include final examination, discussion of admission, and preparation of prescriptions, instructions for ongoing care, follow up and dictation of summary. Signed: CHRIS SMART MD 01/09/2019 10:14 AM Dictation software, [employer], used which may contain error for similar [...] color) Unexpected vaginal bleeding Date Last Reviewed: 07/11/201619996376-4959 [employer]. [address] [place] [address]. All righ ts reserved. This information is [...] | | | | | | (DRISDOL) [address]294 | mouth once a week. | | [...] tablet by | 10 | 0 | 03/19/20 | | | HYDROcodone-acetamin | mouth every [...] tablet by | 10 | 0 | 04/30/20 | | | 5 MG tablet | [...] note may be different from the original. [facility] Service: NEPHROLOGY PD/ Progress Note Ramona Oconnor 38 y.o. [id number] 431/431-1 female [facility] Day: LOS: 4 days Patient with [...] 10/25/15 showed normal sized kidneys. She initiated PRODUCTION SUPPORT CONSULTANT with PD 10/28/15. 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 GERD (gastroesophageal reflux disease) Hypercalcemia 09/07/2017 Hyperphosphatemia 10/28/2015 Hypocalcemia 10/28/2015 Hypokalemia 06/04/2017 Itching 10/28/2015 Metabolic acidosis 10/28/2015 Obesity Peritonitis associated with peritoneal dialysis (HCC) 01/24/2017 Peritonitis due to infected peritoneal dialysis catheter (HCC) 12/08/2018 Secondary hyperparathyroidism (HCC) Uremia 10/28/2015 Past Surgical History Procedure Laterality Date ESOPHAGOGASTRODUODENOSCOPY N/A 09/10/2017 Procedure: ESOPHAGOGASTRODUODENOSCOPY; Surgeon: Beena Peters MD; Location: [facility]; Service: Gastroenterology; Laterality: N/A; PERITONEAL CATHETER INSERTION N/A 10/28/2015 Procedure: LAPAROSCOPIC - PERITONEAL DIALYSIS CATH INSERTION; Surgeon: Mundo Ramos MD; Lo cation: [facility]; Service: Vascular; Laterality: N/A; Family [...] Table: I/O last 3 completed shifts: In: 15350 [P.O.:1250; I.V.:1154; Other:9969] Out: 42369 [Other:93985] Weight change: -0.6 kg (-1 lb 5.2 [...] earlier and charting completed later Dictation software, [employer], used which may contain error for similar sounding words even af ter review. Personal communication requested for any clarification. Portions of my notes may have been carried over for continuity of care. Linden Monte MD - 01/08/2019 4:59 PM PSTFormatting of this note may be different from the original. [facility] Service: NEPHROLOGY PD/ Progress Note Ramona Haresh Oconnor 38 y.o. [id number] 431/431-1 female [facility] Hospital Day: [...] 10/25/15 showed normal sized kidneys. She initiated PRODUCTION SUPPORT CONSULTANT with PD 10/28/15. 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 GERD (gastroesophageal reflux disease) Hypercalcemia 09/07/2017 Hyperphosphatemia 10/28/2015 Hypocalcemia 10/28/2015 Hypokalemia 06/04/2017 Itching 10/28/2015 Metabolic acidosis 10/28/2015 Obesity Peritonitis associated with peritoneal dialysis (HCC) 01/24/2017 Peritonitis due to infected peritoneal dialysis catheter (HCC) 12/08/2018 Secondary hyperparathyroidism (HCC) Uremia 10/28/2015 Past Surgical History Procedure Laterality Date ESOPHAGOGASTRODUODENOSCOPY N/A 09/10/2017 Procedure: ESOPHAGOGASTRODUODENOSCOPY; Surgeon: Beena Peters MD; Location: [facility]; Service: Gastroenterology; Laterality: N/A; PERITONEAL CATHETER INSERTION N/A 10/28/2015 Procedure: LAPAROSCOPIC - PERITONEAL DIALYSIS CATH INSERTION; Surgeon: Mundo Ramos MD; Lo cation: [facility]; Service: Vascular; Laterality: N/A; Family [...] earlier and charting completed later Dictation software, [employer], used which may contain error for similar sounding words even af ter review. Personal communication requested for any clarification. Portions of my notes may have been carried over for continuity of care. Chris Smart MD - 01/08/2019 10:54 AM PSTFormatting of this note may be different from victor manuel mckeon. [facility] Service: Hospitalist Progress Note Pt: Ramona Oconnor AGE/SEX: 38 y.o. female ROOM: [address] [place] [address] : 1980 PCP: JUAN F WHITLEY ADMIT [...] 01/08/19 0650 Gross per 24 hour Intake 06057 ml Output 69187 ml Net 1092 ml Patient Vitals for [...] MD, FACP 01/08/2019 10:54 AM Dictation software, [employer], used which may contain error for similar sounding words even af ter review. Personal communication requested for any clarification. Portions of this chart may have been copied from previous notes for continuity of care purp Linden Gil MD - 01/07/2019 6:00 PM PSTFormatting of this note may be different from the original. [facility] Service: NEPHROLOGY PD/ Progress Note Ramona Hutson Elvin 38 y.o. [id number] 431/431-1 female [facility] Day: LOS: 2 days Patient with [...] 10/25/15 showed normal sized kidneys. She initiated PRODUCTION SUPPORT CONSULTANT with PD 10/28/15. 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 GERD (gastroesophageal reflux disease) Hypercalcemia 09/07/2017 Hyperphosphatemia 10/28/2015 Hypocalcemia 10/28/2015 Hypokalemia 06/04/2017 Itching 10/28/2015 Metabolic acidosis 10/28/2015 Obesity Peritonitis associated with peritoneal dialysis (HCC) 01/24/2017 Peritonitis due to infected peritoneal dialysis catheter (HCC) 12/08/2018 Secondary hyperparathyroidism (HCC) Uremia 10/28/2015 Past Surgical History Procedure Laterality Date ESOPHAGOGASTRODUODENOSCOPY N/A 09/10/2017 Procedure: ESOPHAGOGASTRODUODENOSCOPY; Surgeon: Beena Peters MD; Location: [facility]; Service: Gastroenterology; Laterality: N/A; PERITONEAL CATHETER INSERTION N/A 10/28/2015 Procedure: LAPAROSCOPIC - PERITONEAL DIALYSIS CATH INSERTION; Surgeon: Mundo Ramos MD; Lo cation: [facility]; Service: Vascular; Laterality: N/A; Family [...] Table: I/O last 3 completed shifts: In: 77631 [P.O.:3150; I.V.:1015; Other:49348] Out: 37511 [Other:53197] Weight change: Examination: Family at bedside APPEARANCE: [...] earlier and charting completed later Dictation software, [employer], used which may contain error for similar sounding words even af ter review. Personal communication requested for any clarification. Portions of my notes may have been carried over for continuity of care. Chris Smart MD - 01/07/2019 9:50 AM PSTFormatting of this note may be different from victor manuel mckeon. [facility] Service: Hospitalist Progress Note Pt: Ramona Oconnor AGE/SEX: 38 y.o. female ROOM: [facility]/431-1 : 1980 PCP: JUAN F WHITLEY ADMIT [...] 01/07/19 0645 Gross per 24 hour Intake 68433 ml Output 59356 ml Net 2724 ml Patient Vitals for [...] MD, FACP 01/07/2019 9:50 AM Dictation software, [employer], used which may contain error for similar sounding words even af ter review. Personal communication requested for any clarification. Portions of this chart may have been copied from previous notes for continuity of care purp Chris Hannon MD - 01/06/2019 12:07 PM PSTFormatting of this note may be different from victor manuel [place] original. [facility] Service: Hospitalist Progress Note Pt: Ramona Oconnor AGE/SEX: 38 y.o. female ROOM: [address] [place] [address] : 1980 PCP: JUAN F WHITLEY ADMIT [...] 01/06/19 0740 Gross per 24 hour Intake 73222 ml Output 96248 ml Net 425 ml Patient Vitals for [...] MD, FACP 01/06/2019 12:07 PM Dictation software, [employer], used which may contain error for similar sounding words even af ter review. Personal communication requested for any clarification. Portions of this chart may have been copied from previous notes for continuity of care purp Linden Gil MD - 01/06/2019 12:03 PM PSTFormatting of this note may be different from the original. [facility] Service: NEPHROLOGY PD/ Progress Note Ramona Oconnor 38 y.o. [id number] 431/431-1 female [facility] Hospital Day: LOS: 1 day Patient [...] 10/25/15 showed normal sized kidneys. She initiated PRODUCTION SUPPORT CONSULTANT with PD 10/28/15. 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 GERD (gastroesophageal reflux disease) Hypercalcemia 09/07/2017 Hyperphosphatemia 10/28/2015 Hypocalcemia 10/28/2015 Hypokalemia 06/04/2017 Itching 10/28/2015 Metabolic acidosis 10/28/2015 Obesity Peritonitis associated with peritoneal dialysis (HCC) 01/24/2017 Peritonitis due to infected peritoneal dialysis catheter (HCC) 12/08/2018 Secondary hyperparathyroidism (HCC) Uremia 10/28/2015 Past Surgical History Procedure Laterality Date ESOPHAGOGASTRODUODENOSCOPY N/A 09/10/2017 Procedure: ESOPHAGOGASTRODUODENOSCOPY; Surgeon: Beena Peters MD; Location: [facility]; Service: Gastroenterology; Laterality: N/A; PERITONEAL CATHETER INSERTION N/A 10/28/2015 Procedure: LAPAROSCOPIC - PERITONEAL DIALYSIS CATH INSERTION; Surgeon: Mundo Ramos MD; Lo cation: [facility]; Service: Vascular; Laterality: N/A; Family [...] earlier and charting completed later Dictation software, [employer], used which may contain error for similar [...] | [facility] | | | performed at [facility], [address] | | LABORATORY | | | [address] [facility], | | | | | [place] [address] | | | + + + + + + + | Specimen | + + | Blood | + + + + + + + | Performing | Address | City/State/Zipcode | Phone Number | | Organization | | | | + + + + + | [facility] | [address] | [place] [address] | [phone] | | LABORATORY | [address]vd[address] | | | + + + + + Basic metabolic panel (01/09/2019 5:46 AM) + + + + + | Component | Value | Ref Range | Performed At | + + + + + | SODIUM | 140 | 135 - 145 mmol/L | [facility] | | | | | LABORATORY | + + + + + | POTASSIUM | 4.2 | 3.5 - 4.9 mmol/L | [facility] | | | | | LABORATORY | [...] (H) | 0.50 - 1.00 mg/dL | [facility] | | | | | LABORATORY | + + + + + | BUN/CREAT | 2 | | [facility] | | | | | LABORATORY | + + + + + | CALCIUM | 7.1 (L) | 8.5 - 10.5 mg/dL | [facility] | | | | | LABORATORY | + + + + + | EGFR | 3 (L)Comment: GFR <60: | >60 mL/min/1.73m2 | [facility] | | | CHRONIC KIDNEY DISEASE, [...] | | | | | performed at [facility], [address] | | | | | [facility], | | | | | [place] [address] | | | + + + + + + + | Specimen | + + | Blood | + + + + + + + | Performing | Address | City/State/Zipcode | Phone Number | | Organization | | | | + + + + + | [facility] | [address] | [place] [address] | [phone] | | LABORATORY | Any. | | [...] | [facility] | | | performed at [facility], [address] | | LABORATORY | | | [address] [place], | | | | | [place] [address] | | | + + + + + + + | Specimen | + + | Blood | + + + + + + + | Performing | Address | City/State/Zipcode | Phone Number | | Organization | | | | + + + + + | [facility] | [address] [address] | [place] [address] | [phone] | | LABORATORY | Blvd[address] | | | + + + + + Magnesium (01/08/2019 5:26 AM) + + + + + | Component | Value | Ref Range | Performed At | + + + + + | MAGNESIUM | 2.0Comment: Testing | 1.7 - 2.4 mg/dL | [facility] | | | performed at [facility], [address] | | LABORATORY | | | [facility] [address], | | | | | [place] [address] | | | + + + + + + + | Specimen | + + | Blood | + + + + + + + | Performing | Address | City/State/Zipcode | Phone Number | | Organization | | | | + + + + + | [facility] | [address] [address] | [place] [address] | [phone] | | LABORATORY | Blvd. | | [...] the | | | | | MDRD IDAL traceable | | | | | equation.Testing | | | | | performed at [facility], [address] | | | | | [facility], | | | | | [place] [address] | | | + + + + + + + | Specimen | + + | Blood | + + + + + + + | Performing | Address | City/State/Zipcode | Phone Number | | Organization | | | | + + + + + | [facility] | [address] | [place] [address] | [phone] | | LABORATORY | Blvd. | | [...] | [facility] | | | performed at [facility], [address] | | LABORATORY | | | [facility], | | | | | [place] [address] | | | + + + + + + + | Specimen | + + | Blood | + + + + + + + | Performing | Address | City/State/Zipcode | Phone Number | | Organization | | | | + + + + + | [facility] | [address] [address] | [place] [address] | [phone] | | LABORATORY | Blvd. | | [...] (H)Comment: | 0.50 - 1.00 mg/dL | [facility] | | | SPECIMEN SLIGHTLY | | LABORATORY | | | HEMOLYZED | | | + + + + + | BUN/CREAT | 3 | | [facility] | | | | | LABORATORY | + + + + + | CALCIUM | 6.8 (L) | 8.5 - 10.5 mg/dL | [facility] | | | | | LABORATORY | + + + + + | EGFR | 3 (L)Comment: GFR <60: | >60 mL/min/1.73m2 | [facility] | | | CHRONIC KIDNEY DISEASE, [...] | | | | | performed at [facility], [address] | | | | | [facility], | | | | | [place] [address] | | | + + + + + + + | Specimen | + + | Blood | + + + + + + + | Performing | Address | City/State/Zipcode | Phone Number | | Organization | | | | + + + + + | [facility] | [address] | [place] [address] | [phone] | | LABORATORY | Any. | | | + + + + + Magnesium (01/07/2019 5:18 AM) + + + + + | Component | Value | Ref Range | Performed At | + + + + + | MAGNESIUM | 2.1Comment: Testing | 1.7 - 2.4 mg/dL | [facility] | | | performed at [facility], [address] | | LABORATORY | | | [facility], | | | | | [place] [address] | | | + + + + + + + | Specimen | + + | Blood | + + + + + + + | Performing | Address | City/State/Zipcode | Phone Number | | Organization | | | | + + + + + | [facility] | [address] [address] | [place] [address] | [phone] | | LABORATORY | Blvd. | | [...] | | | | | performed at [facility], [address] | | | | | [facility], | | | | | [place] [address] | | | + + + + + + + | Specimen | + + | Blood | + + + + + + + | Performing | Address | City/State/Zipcode | Phone Number | | Organization | | | | + + + + + | [facility] | [address] | [place] [address] | [phone] | | LABORATORY | Any. | | [...] performed at | | | | | [facility], [address] | | | | | [place] | | | | | [address] | | | + + + + + + + | Specimen | + + | Blood | + + + + + + + | Performing | Address | City/State/Zipcode | Phone Number | | Organization | | | | + + + + + | [facility] | [address] | [place] [address] | [phone] | | LABORATORY | Blvd. | | | + + + + + PROCALCITONIN (01/06/2019 5:29 AM) + + + + + | Component | Value | Ref Range | Performed At | + + + + + | PROCALCITONIN | 0.82 (H)Comment: | <0.5 ng/mL | [facility] | | | INTERPRETIVE | [...] performed | | | | | at [facility];[address] [place] [address] | | | | | [facility];[place] [address] | | | + + + + + + + + + + | Performing | Address | City/State/Zipcode | Phone Number | | Organization | | | | + + + + + | [facility] | [address] | [place] [address] | | + + + + + C-reactive protein (01/06/2019 5:29 AM) + + + + + | Component | Value | Ref Range | Performed At | + + + + + | CRP | 0.3Comment: Testing | <0.5 mg/dL | [facility] | | | performed at [facility], [address] | | LABORATORY | | | [address], | | | | | [place] [address] | | | + + + + + + + | Specimen | + + | Blood | + + + + + + + | Performing | Address | City/State/Zipcode | Phone Number | | Organization | | | | + + + + + | [facility] | [address] [place] [address] | [place] [address] | [phone] | | LABORATORY | [address]vd[address] | | | + + + + + Phosphorus (01/06/2019 5:29 AM) + + + + + | Component | Value | Ref Range | Performed At | + + + + + | PHOSPHORUS | 8.8 (H)Comment: Testing | 2.3 - 4.8 mg/dL | [facility] | | | performed at [facility], [address] | | LABORATORY | | | [facility], | | | | | [place] [address] | | | + + + + + + + | Specimen | + + | Blood | + + + + + + + | Performing | Address | City/State/Zipcode | Phone Number | | Organization | | | | + + + + + | [facility] | [address] [address] [facility] | [place] [address] | [phone] | | LABORATORY | Blvd. | | [...] the | | | | | MDRD IDAL traceable | | | | | equation.Testing | | | | | performed at [facility], [address] | | | | | [facility], | | | | | [place] [address] | | | + + + + + + + | Specimen | + + | Blood | + + + + + + + | Performing | Address | City/State/Zipcode | Phone Number | | Organization | | | | + + + + + | [facility] | [address] [place] [address] | [place] [address] | [phone] | | LABORATORY | [address]vd[address] | | | + + + + + Magnesium (01/06/2019 5:29 AM) + + + + + | Component | Value | Ref Range | Performed At | + + + + + | MAGNESIUM | 2.3Comment: Testing | 1.7 - 2.4 mg/dL | [facility] | | | performed at [facility], [address] | | LABORATORY | | | [facility], | | | | | [place] [address] | | | + + + + + + + | Specimen | + + | Blood | + + + + + + + | Performing | Address | City/State/Zipcode | Phone Number | | Organization | | | | + + + + + | [facility] | [address] [address] | [place] [address] | [phone] | | LABORATORY | Any. | | [...] | [facility] | | | performed at [facility], [address] | | LABORATORY | | | [address], | | | | | [place] [address] | | | + + + + + + + | Specimen | + + | Blood | + + + + + + + | Performing | Address | City/State/Zipcode | Phone Number | | Organization | | | | + + + + + | [facility] | [address] | [place] [address] | [phone] | | LABORATORY | Blvd. | | | + + + + + Troponin I (01/05/2019 11:47 AM) + + + + + | Component | Value | Ref Range | Performed At | + + + + + | TROPONIN I | 0.074 (H)Comment: 0.04 | 0.00 - 0.04 ng/mL | [facility] | | | ng/mL or [...] performed | | | | | at [facility];[address] | | | | | [place] [address] | | | + + + + + + + | Specimen | + + | Blood | + + + + + + + | Performing | Address | City/State/Zipcode | Phone Number | | Organization | | | | + + + + + | [facility] | [address] | [place] [address] | | + + + + + [...] | [facility] | | | performed at [facility], [address] | | LABORATORY | | | [address], | | | | | [place] [address] | | | + + + + + + + | Specimen | + + | Blood | + + + + + + + | Performing | Address | City/State/Zipcode | Phone Number | | Organization | | | | + + + + + | [facility] | [address] | [place] [address] | [phone] | | LABORATORY | [address]vd[address] | | | + + + + + Troponin I (01/05/2019 5:42 AM) + + + + + | Component | Value | Ref Range | Performed At | + + + + + | TROPONIN I | 0.073 (H)Comment: 0.04 | 0.00 - 0.04 ng/mL | [facility] | | | ng/mL or [...] performed | | | | | at [facility];[address] | | | | | vd;[place] [address] | | | + + + + + + + | Specimen | + + | Blood | + + + + + + + | Performing | Address | City/State/Zipcode | Phone Number | | Organization | | | | + + + + + | [facility] | [address] | [place] [address] | | + + + + + Abiel-TORIBIO (01/05/2019 5:42 AM) + + + + + | Component | Value | Ref Range | Performed At | + + + + + | INR | 1.1Comment: REFERENCE | | [facility] | | | RANGE:0.9 - [...] | | | | | performed at [facility];[address] | | [address] [facility];[place], [place] | | | | | [address] | | | + + + + + + + | Specimen | + + | Blood | + + + + + + + | Performing | Address | City/State/Zipcode | Phone Number | | Organization | | | | + + + + + | [facility] | [address] | [place] [address] | | + + + + + [...] [place], | | | | | [place] [address] | | | + + + + + + + | Specimen | + + | Blood | + + + + + + + | Performing | Address | City/State/Zipcode | Phone Number | | Organization | | | | + + + + + | [facility] | [address] [place] [address] | [place] [address] | [phone] | | LABORATORY | [address]vd[address] | | | + + + + + Magnesium (01/05/2019 5:42 AM) + + + + + | Component | Value | Ref Range | Performed At | + + + + + | MAGNESIUM | 2.4Comment: Testing | 1.7 - 2.4 mg/dL | [facility] | | | performed at [facility], [address] | | LABORATORY | | | [facility], | | | | | [place] [address] | | | + + + + + + + | Specimen | + + | Blood | + + + + + + + | Performing | Address | City/State/Zipcode | Phone Number | | Organization | | | | + + + + + | [facility] | [address] | [place] [address] | [phone] | | LABORATORY | [address] | | [...] | | | | | performed at [facility], [address] | | | | | [facility], | | | | | [place] [address] | | | + + + + + + + | Specimen | + + | Blood | + + + + + + + | Performing | Address | City/State/Zipcode | Phone Number | | Organization | | | | + + + + + | [facility] | [address] | [place] [address] | [phone] | | LABORATORY | [address] | | [...] | [facility] | | | performed at [facility], [address] | | LABORATORY | | | [place]ane [place]arwal, | | | | | [place] [address] | | | + + + + + + + | Specimen | + + | Blood | + + + + + + + | Performing | Address | City/State/Zipcode | Phone Number | | Organization | | | | + + + + + | [facility] | [address] | [place] [address] | [phone] | | LABORATORY | Blvd. | | [...] + + + + | Calculated [facility] [place] | 27 | degrees | [facility] | + + + + + | Calculated [facility] [place] [facility] | 79 | degrees | [facility] | + + + + + | Calculated [facility] [place] | -142 | degrees | [facility] | + + + + + | Diagnosis | Normal sinus rhythm with | | [facility] | | | sinus arrhythmiaST [...] ONLY, -COMPUTER | | | | | ([phone]), senior editor Collin, | | | | | Rashel Mercado ([id number]) on | | | | | 01/05/2019 3:50:25 AM | | | + + + + + + + + + + | Performing | Address | City/State/Zipcode | Phone Number | | Organization | | | | + + + + + | [facility] | [address] | [place] [address] | | + + + + + Troponin I (01/05/2019 12:51 AM) + + + + + | Component | Value | Ref Range | Performed At | + + + + + | TROPONIN I | 0.076 (H)Comment: 0.04 | 0.00 - 0.04 ng/mL | [facility] | | | ng/mL or [...] performed | | | | | at [facility] [place] [address] | | | | | [facility];[place] [address] | | | + + + + + + + + + + | Performing | Address | City/State/Zipcode | Phone Number | | Organization | | | | + + + + + | [facility] | [address] | [place] [address] | | + + + + + Phosphorus (01/05/2019 12:51 AM) + + + + + | Component | Value | Ref Range | Performed At | + + + + + | PHOSPHORUS | 11.7 (HH)Comment: CALLED | 2.3 - 4.8 mg/dL | [facility] | | | TO LEONILA Hernández RN/BARI AT | | | | | 0304 BY MWREAD BACK | | | | | RESULTS VERIFIEDTesting | | | | | performed at [facility] | | | | | [facility] | | | | | [address] | | | + + + + + + + | Specimen | + + | Blood | + + + + + + + | Performing | Address | City/State/Zipcode | Phone Number | | Organization | | | | + + + + + | [facility] | [address] | [place] [address] | | + + + + + Magnesium (01/05/2019 12:51 AM) + + + + + | Component | Value | Ref Range | Performed At | + + + + + | MAGNESIUM | 2.1Comment: Testing | 1.7 - 2.4 mg/dL | [facility] | | | performed at [facility] | | | | | [employer];[place], [place] | | | | | [address] | | | + + + + + + + | Specimen | + + | Blood | + + + + + + + | Performing | Address | City/State/Zipcode | Phone Number | | Organization | | | | + + + + + | [facility] | [address] | [place] [address] | | + + + + + Comprehensive metabolic panel (01/05/2019 12:51 AM) + + + + + | Component | Value | Ref Range | Performed At | + + + + + | SODIUM | 143 | 135 - 145 mmol/L | [facility] | + + + + + | POTASSIUM | 2.8 (L) | 3.5 - 4.9 mmol/L | [facility] | + + + + [...] 2.7 | 1.3 - 4.9 g/dL | [facility] | + + + + + | A/G | 1.5 | 1.0 - 2.4 | [facility] | + + + + + | TBIL | 0.4 | 0.1 - 1.5 mg/dL | [facility] | + + + + + | ALK PHOS | 74 | 35 - 115 U/L | [facility] | + + + + + | AST | 55 (H) | 10 - 45 U/L | [facility] | + + + + + | ALT | 53 | 10 - 65 U/L | [facility] | + + + + + | EGFR | 3 (L)Comment: GFR <60: | >60 mL/min/1.73m2 | [facility] | | | CHRONIC KIDNEY [...] | | | | | performed at [facility];[address] | | | | | [employer];[place], [place] | | | | | [address] | | | + + + + + + + | Specimen | + + | Blood | + + + + + + + | Performing | Address | City/State/Zipcode | Phone Number | | Organization | | | | + + + + + | [facility] | [address] | [place] [address] | | + + + + + CBC with differential (01/05/2019 12:51 AM) + + + + + | Component | Value | Ref Range | Performed At | + + + + + | WBC | 15.65 (H) | 3.80 - 11.00 K/uL | [facility] | + + + + + | RBC | 4.24 | 3.70 - 5.10 M/uL | [facility] | + + + + + | HGB | 12.7 | 11.3 - 15.5 g/dL | [facility] | + + + + + | HCT | 37.4 | 34.0 - 46.0 % | [facility] | + + + + + | MCV | 88.2 | 80.0 - 100.0 fl | [facility] | + + + + + | MCH | 30.0 | 27.0 - 34.0 pg | [facility] | + + + + + | MCHC | 34.0 | 32.0 - 35.5 g/dL | [facility] | + + + + + | RDW SD | 49.4 | 37 - 53 fl | [facility] | + + + + + | PLT | 337 | 150 - 400 K/uL | [facility] | + + + + + | MPV | 8.7 | fl | [facility] | + + + + + | DIFF TYPE | AUTOMATED | | [facility] | + + + + + [...] Testing | 0.00 - 0.10 K/uL | [facility] | | | performed at [facility];[address] | | | | | [address];[place] | | | | | [address] | | | + + + + + + + | Specimen | + + | Blood | + + + + + + + | Performing | Address | City/State/Zipcode | Phone Number | | Organization | | | | + + + + + | [facility] | [address] | [place] [address] | | + + + + + ED INFORMATION EXCHANGE (01/04/2019 10:36 PM) + + + | Narrative | Performed At | + + + | [id number] Criteria Met Care | ED | | [...] | | | Medical/Surgical 06/10/18 12:00 AM [facility] | | | Patient has not followed up with PCP in regards to ED visits. Last | | | time patient was seen by PCP was 06/10/17. Patient has done | | | multiple no shows to [facility]. Patient has been | | | seen by [facility] infectious disease for follow up by [...] | (12 mo.) Facility Visits Low Acuity [facility] | | | 5 0 [facility] 5 0 Total 10 0 Note: Visits | | | indicate total known visits. Medicaid Low Acuity Dx are the number of | | | primary diagnoses on the Medicaid's Low Acuity dx list. Recent | | | Emergency Department Visit Summary Date Facility City State Type | | | Diagnoses or Chief Complaint Jan 04, 2019 [facility] | | | [place] Emergency Jan 04, 2019 [facility] [place] | | | Emergency Chief Complaint: DEHYDRATION/CONSTIPATION Dec 31, | | | 2018 [facility] [place] Emergency Other intermediate designer | | | (current) drug therapy Anxiety disorder, unspecified | | | Dependence on renal dialysis Essential (primary) hypertension | | | Dec 24, 2018 [facility] 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 [place] [place] Emergency | | | Peritonitis, unspecified Panic disorder [episodic | | | paroxysmal anxiety] Chronic kidney disease, unspecified | | | Dependence on renal dialysis [facility] | | [facility] [place] Emergency Flank Pain Unspecified abdominal | | | pain Dependence on renal dialysis Patient's | | | noncompliance with other medical treatment and regimen End | | | stage renal disease Noninflammatory disorder of ovary, | | | fallopian tube and broad ligament, unspecified March 16, 2018 [facility] | | | [facility] [place] Emergency abdominal pain | | | Chronic kidney disease, unspecified Hypotension, unspecified | | | Unspecified abdominal pain March 11, [address] [facility] | | | [place] Emergency Unspecified abdominal pain | | | Peritonitis, unspecified Infection and inflammatory reaction | | | due to other cardiac and vascular devices, implants and grafts, | | | initial encounter Dependence on renal dialysis Other | | | intermediate designer (current) drug therapy Essential (primary) | | | hypertension Mar 04, 2018 [facility] [place] | | | Emergency Emesis Abdominal Pain Recent | | | Inpatient Visit Summary Date Facility City State Type Diagnoses or | | | Chief Complaint Dec 24, 2018 [facility] | | Medicine Unspecified abdominal pain End stage renal | | | disease Dependence on renal dialysis Dec 07, 2018 [facility] | | | [facility] Bandemia | | | Spontaneous bacterial peritonitis End stage renal disease | | | Dependence on renal dialysis Peritonitis, unspecified | | | Infection and inflammatory reaction due to peritoneal dialysis | | | catheter, subsequent encounter Anemia in chronic kidney disease | | | Jun 07, 2018 [facility] | | | Bacterial peritonitis End stage renal disease | | | Dependence on renal dialysis March 16, 2018 [facility] | | | [facility] General Medicine Chronic kidney disease, | | | unspecified Hypotension, unspecified Unspecified | | | abdominal pain Dependence on renal dialysis End stage | | | renal disease Noninflammatory disorder of ovary, fallopian tube | | | and broad ligament, unspecified Mar 04, 2018 [facility] | | | [place] Recovery Emesis Abdominal Pain | | | Generalized abdominal pain Dependence on renal dialysis | | | End stage renal disease Nausea with vomiting, unspecified | | | Care Providers Provider PRC Type Phone Fax Service Dates | | | JUAN F WHITLEY MD Family Medicine Jun 08, 2018 - Current | | | [facility] Portal This patient has registered at the [facility] | | | [facility] Emergency Department For more information visit: | | | [email or web address] | | | [email or web address] The above information is provided for the sole purpose of | | | patient treatment. Use of this information beyond the terms of Data | | | Sharing Memorandum of Understanding and License Agreement is | | | prohibited. In certain cases not all visits may be represented. | | | Consult the aforementioned facilities for additional information. | | | 2019 [employer] - [place], [place] - | | | [email or web address] | | + + + + + | Procedure Note | + + | Interface, Lab - 01/04/2019 10:38 PM PST Formatting of this note may be different | | from the original.[id number] Met Care Guidelines 10 in 12 | | 2 in 2Security and SafetyNo recent Security Events currently on fileED Care | | GuidelinesThere are currently no ED Care Guidelines for this patient. Please check your | | facility's medical records system.Care HistoryMedical/Surgical06/10/18 12:00 AM [facility]. | | [facility] Patient has not followed up with PCP in regards to ED visits. Last | | time patient was seen by PCP was 06/10/17. Patient has done multiple no shows to | | [facility]. Patient has been seen by [facility] infectious disease for follow | | [...] Visit Count (12 mo.)Facility Visits Low Acuity [facility] | [facility] 5 0 [facility] 5 0 Total 10 0 Note: Visits indicate total | | known visits. Medicaid Low Acuity Dx are the number of primary diagnoses on the | | Medicaid's Low Acuity dx list. Recent Emergency Department Visit SummaryDate Facility | | City State Type Diagnoses or Chief Complaint Jan 04, 2019 [facility] [place] [facility] Chief Complaint: | | DEHYDRATION/CONSTIPATION Dec 31, 2018 [facility] [place] [facility] Other | | usp (current) drug therapy Anxiety disorder, unspecified Dependence on renal | | dialysis Essential (primary) hypertension Dec 24, 2018 [facility] [place] [place] | | Emergency Hypertensive heart and chronic kidney disease without heart failure, with | | stage 5 chronic kidney disease, or end stage renal disease End stage renal disease | | Nausea with vomiting, unspecified Other usp (current) drug therapy Left | | upper quadrant pain Dependence on renal dialysis Dec 07, 2018 [facility] [place] | | [facility] Emergency Abdominal Pain Chest Pain Spontaneous bacterial peritonitis | | Bandemia Dependence on renal dialysis End stage renal disease Jun 07, 2018 | | [facility] [place] Emergency Peritonitis, unspecified Panic disorder | | [episodic paroxysmal anxiety] Chronic kidney disease, unspecified Dependence on | | renal dialysis Jun 04, 2018 [facility] [place] Emergency Flank Pain | | Unspecified abdominal pain Dependence on renal dialysis Patient's noncompliance | | with other medical treatment and regimen End stage renal disease Noninflammatory | | disorder of ovary, fallopian tube and broad ligament, unspecified March 16, 2018 [facility] | | [place] Emergency abdominal pain Chronic kidney disease, | | unspecified Hypotension, unspecified Unspecified abdominal pain March 11, 2018 [facility] | | [place] Emergency Unspecified abdominal pain Peritonitis, | | unspecified Infection and inflammatory reaction due to other cardiac and vascular | | devices, implants and grafts, initial encounter Dependence on renal dialysis Other | | intermediate designer (current) drug therapy Essential (primary) hypertension Mar 04, 2018 | | [facility] [place] Emergency Emesis Abdominal Pain Recent Inpatient | | Visit SummaryDate Facility [facility] State Type Diagnoses or Chief Complaint Dec 24, 2018 | | [facility] [place] General Medicine Unspecified abdominal pain End | | stage renal disease Dependence on renal dialysis Dec 07, 2018 [facility] [place] | | [place] General Medicine Bandemia Spontaneous bacterial peritonitis End stage | | renal disease Dependence on renal dialysis Peritonitis, unspecified Infection | | and inflammatory reaction due to peritoneal dialysis catheter, subsequent encounter | | Anemia in chronic kidney disease Jun 07, 2018 [facility] [place] General | | Medicine Bacterial peritonitis End stage renal disease Dependence on renal | | dialysis March 16, 2018 [facility] [place] General Medicine Chronic kidney | | disease, unspecified Hypotension, unspecified Unspecified abdominal pain | | Dependence on renal dialysis End stage renal disease Noninflammatory disorder of | | ovary, fallopian tube and broad ligament, unspecified Mar 04, 2018 [facility] [place] | | [place] Recovery Emesis Abdominal Pain Generalized abdominal pain | | Dependence on renal dialysis End stage renal disease Nausea with vomiting, | | unspecified Care ProvidersProvider [facility] Type Phone Fax Service Dates JUAN F WHITLEY MD | | Family Medicine Jun 08, 2018 - Current Rav[facility] PortalThis patient has registered | | at the [facility] Emergency Department For more information visit: | | [email or web address] The above | | information is provided for the sole purpose of patient treatment. Use of this | | information beyond the terms of Data Sharing Memorandum of Understanding and License | | Agreement is prohibited. In certain cases not all visits may be represented. Consult the | | aforementioned facilities for additional information. 2019 [employer] | | [email or web address] - [place], [place] - [email or web address] | |Jun 07, 2018 [facility] [place] Emergency | | Peritonitis, unspecified | | Panic disorder [episodic paroxysmal anxiety] | | Chronic kidney disease, unspecified | | Dependence on renal dialysis | | | |Jun 04, [facility] | | Flank Pain | | Unspecified abdominal pain | | Dependence on renal dialysis | | Patient's noncompliance with other medical treatment and regimen | | End stage renal disease | | Noninflammatory disorder of ovary, fallopian tube and broad ligament, unspecified | | | |March 16, 2018 [facility] | | abdominal pain [...] Dependence on renal dialysis | | Other intermediate designer (current) drug therapy | | Essential (primary) hypertension | | | |Mar 04, 2018 [facility] [place] Emergency | | Emesis | | Abdominal Pain | | | | | | | |Recent Inpatient Visit Summary | |Date Facility [facility] State Type Diagnoses or Chief Complaint | |Dec 24, [facility] [place] [facility] | | Unspecified abdominal pain | | End stage renal disease | | Dependence on renal dialysis | | | |Dec 07, 2018 [facility] General Medicine | | Bandemia | | Spontaneous bacterial peritonitis | | End stage renal disease | | Dependence on renal dialysis | | Peritonitis, unspecified | | Infection and inflammatory reaction due to peritoneal dialysis catheter, subsequent enco unter | | Anemia in chronic kidney disease | | | |Jun 07, 2018 [facility] General Medicine | | Bacterial peritonitis | | End stage renal disease | | Dependence on renal dialysis | | | |March 16, 2018 [facility] General Medicine | | Chronic kidney disease, unspecified | | Hypotension, unspecified | | Unspecified abdominal pain | | Dependence on renal dialysis | | End stage renal disease | | Noninflammatory disorder of ovary, fallopian tube and broad ligament, unspecified | | | |Mar 04, 2018 [facility] Recovery | | Emesis | | [...] 08, 2018 - Current | | | |[facility] Portal | |This patient has registered at the [facility] Emergency Department | |For more information visit: [email or web address] | |The above information is provided for the sole purpose of patient treatment. Use of this in formation beyond the terms of Data Sharing Memorandum of Understanding and License Agreement is prohibited. In | |certain cases not all visits may be represented. Consult the aforementioned facilities for additional information. | |2019 [email or web address] - [place], [place] - [email or web address] | + + + +---------+ + + [...] | | | | | dose on [facility] 01/07/19 at 1700 | | | | [...] 11:53 | | | | | Once, [facility] 01/05/19 at 1100, For 1 | | PST | | | | | dose | | | | | | + +-------+ +--------+---+---+ +---+---+ | | | +---+---+ + +-------+ +--------+---+---+ | potassium chloride (K-DUR) CR | Given | 01/08/2019 | 60 mEq | | | | tablet 60 mEq 60 mEq, Oral, | | 13:06 | | | | | Once, [facility] 01/08/19 at 1130, For 1 | | [...] | | | | | | Starting [facility] 01/07/19 at 0840, | | | | [...]
--- OUTSIDE RECORDS SUMMARY | ~2019-01-31 | XMS | Encounter Summary ---
Demographics + + + | Address | [address] | | | [place] [address] | + + + | Home Phone | | + + + | Preferred Language | Unknown | + + + | Marital Status | | + + + | Jew Affiliation | Unknown | + + + | Race | Unknown | + + + | Ethnic Group | Unknown | + + + Author + + + | Author | [facility] | + + + | Organization | [facility] | + + + | Address | Unknown | + + + | Phone | Unavailable | + + + Support + + + + + | Name | Relationship | Address | Phone | + + + + + | Lyubov Smalls | MASHA | [place] | | | | | [address] | | + + + + + | Lydia Palm | ECON | [place] | | | | | [address] | | + + + + + | Tyler Oconnor | ECON | [address] | | | | | [place] | | | | | [address] | | + + + + + Care Team Providers + +------+ + | Care Business Law Teacher Name | Role | Phone | + [...] | | | | Diagnoses | | [facility] 3rd | | | | | peritonitis | | Floor [address] | | | | | | | Pavilion | | | | | | | [address] | | | | | | | [address] | | | | | | | [place], [place] | | | | | | | [address] Phone: | | | | | | | [phone] | | | | | | | Fax: | | | | | | | [phone] | +--------+--------+ + + + + Encounter Details +--------+ + + + + | Date | Type | Department | Care Team | Description | +--------+ + + + + | 12/24/ | Hospital | [facility] | Espinoza, | Abdominal pain, | | 2019 - | Encounter | Medical Cntr 3rd | MD Jose [address] | unspecified | | | | Floor [address] | [address] | abdominal location; | | 12/27/ | | Pavilion [address] | [place] [address] | End-stage renal | | [address] | | Blvd [place], [place] | [phone] | disease on | | | | [address] | | peritoneal dialysis | | | | | Hilda Edwards DO | ([facility]); Anemia in | | | | | [address] | ESRD (end-stage | | | | | [place] [address] | renal disease) | | | | | [phone] | ([facility]); | | | | | | Hyperphosphatemia; [...] PD associated peritonitis. She was transferred from [place] for [facility]. In ED at [facility] CT abd was performed, imaging did not [...] Information: Follow [place]: [place] [address] [place] [address] Medication List CONTINUE taking these medications ALPRAZolam 0.5 MG tablet Refills: 0 Commonly known as: XANAX amLODIPine 2.5 MG tablet Refills: 0 Commonly known as: NORVASC cefdinir 300 MG capsule QTY: 9 capsule Refills: 0 Commonly known as: OMNICEF Take 1 capsule by mouth daily. clonazePAM 0.5 MG tablet Refills: 0 Commonly known as: KlonoPIN ergocalciferol 55929 units capsule Refills: 0 Commonly known as: [...] in the next 24 hours. Call 911 [id number] if any of these occur: Trouble breathing [...] and are getting dehydrated Date Last Reviewed: 11/08/201519996059-8641 [employer]. [address] [place] [address], [place] [address]. All righ ts reserved. This information is [...] bottled water for sodium content. Don't take mgod-zer-hgkujoa medicines that contain sodium bicarbonate or sodium [...] about dialysis. This procedure may helpif your tray drier dorothy kidney disease is progressing to end stage renal disease. Follow-up care Follow up with your healthcare provider, or as advised. When to call your healthcare provider Call your healthcare provider right away if you have any of the following: Chest pain (call 911) Trouble eating or drinking Weight loss of more uyav3rrbskj uf06ozazd or more piss1hlixux in7 days Little or no urine output Trouble breathing Muscle aches Vrsgvay613.4F (38C) or higher, or as advised by your healthcare provider Blood in your urine or stool Bloody discharge from your nose, mouth, or ears Severe headache or a seizure Vomiting Swelling of legs or ankles Date Last Reviewed: 12/11/201619996365-8169 [facility]. [address] [place] [address], [place] [address]. All righ ts reserved. This information is [...] | | | | | | (DRISDOL) 79[address] | mouth once a week. | | [...] note may be different from the original. [facility] Service: Infectious Disease Progress Note [...] OR acetaminophen, ALPRAZolam, HYDROcodone-acetaminophen, HYDROmorphone OR HYDROmorphone, njijdzalx-inqbdx-omrgjcyqjp, ondansetron OR ondansetron, polyethylen e glycol, simethicone, [...] Full Code TYLER KAYE DO 12/27/2018Minerva Cruz, [facility] - 12/27/2018 7:09 AM PSTClinical Pharmacy Note: Vancomycin Day 3 Vanco random level today 20.5 mcg/mL; higher than goal 15 to 20 mcg/mL. No dose today. Next vanco trough due tomorrow with AM labs. Minerva Cruz, Pharmacist 12/27/2018 7:06 AM Hilda Edwards, DO - 12/26/2018 4:41 PM PSTFormatting of this note may be different fro m the original. [facility] Service: Hospitalist Progress Note Hospital [...] OR acetaminophen, ALPRAZolam, HYDROcodone-acetaminophen, HYDROmorphone OR HYDROmorphone, idbqnpmep-awwhac-shvwzyvcea, ondansetron OR ondansetron, polyethylen e glycol, simethicone, [...] may be diffe rent from the original. [facility] Service: Hospitalist Progress Note Hospital [...] OR acetaminophen, ALPRAZolam, HYDROcodone-acetaminophen, HYDROmorphone OR HYDROmorphone, wbdiorldz-idawgr-okzrpfsois, ondansetron OR ondansetron, polyethylen e glycol, zolpidem [...] HYDROcodone-acetaminophen, HYDROmorphone OR | | | HYDROmorphone, rbczvqvhs-bkfgvj-anbhxytzva, ondansetron OR | | | ondansetron, polyethylene [...] | | last 3 completed shifts: In: 54642 [P.O.:250; Other:84110] Out: | | | 60681 [Emesis/NG output:200; Other:02911] Assessment: Ms. Oconnor | | | is [...] | | | | performed at [facility], [facility] [address] | | | | | [facility], | | | | | [place] [address] | | | + + + + + + + | Specimen | + + | Blood | + + + + + + + | Performing | Address | City/State/Zipcode | Phone Number | | Organization | | | | + + + + + | [facility] | [address] | [place] [address] | [phone] | | LABORATORY | [address]vd[address] | | [...] | [facility] | | | performed at [facility], [address] | | LABORATORY | | | [address], | | | | | [place] [address] | | | + + + + + + + + + + | Performing | Address | City/State/Zipcode | Phone Number | | Organization | | | | + + + + + | [facility] | [address] | [place] [address] | [phone] | | LABORATORY | [address] | | | + + + + + Vancomycin, random (12/27/2018 5:44 AM) + + + + + | Component | Value | Ref Range | Performed At | + + + + + | VANCOMYCIN,RANDOM | 20.5Comment: Testing | ug/mL | [facility] | | | performed at [facility];[address] | | | | [address];[place], [place] | | | | | [address] | | | + + + + + + + | Specimen | + + | Blood | + + + + + + + | Performing | Address | City/State/Zipcode | Phone Number | | Organization | | | | + + + + + | [facility] | [address] | [place] [address] | | + + + + + [...] HYDROcodone-acetaminophen, HYDROmorphone OR | | | HYDROmorphone, xpwdidrje-lescif-bveowlftcf, ondansetron OR | | | ondansetron, polyethylene [...] (H) | 3.80 - 11.00 K/uL | [facility] | + + + + + | RBC | 3.68 (L) | 3.70 - 5.10 M/uL | [facility] | + + + + + | HGB | 10.9 (L) | 11.3 - 15.5 g/dL | [facility] | + + + + + [...] (H) | 150 - 400 K/uL | [facility] | + + + + + | MPV | 7.7 | fl | [facility] | + + + + + | DIFF TYPE | AUTOMATED | | [facility] | + + + + + | NEUTROPHILS | 82.96 | % | [facility] | + + + + + | LYMPHOCYTES | 9.80 | % | [facility] | + + + + + [...] Testing | 0.00 - 0.10 K/uL | [facility] | | | performed at [facility];[address] | | | | | [address];[place], [place] | | | | | [address] | | | + + + + + + + | Specimen | + + | Blood | + + + + + + + | Performing | Address | City/State/Zipcode | Phone Number | | Organization | | | | + + + + + | [facility] | [address] | [place] [address] | | + + + + + [...] + + + + | Calculated P Dyke | 3 | degrees | [facility] | + + + + + | Calculated R Dyke | 35 | degrees | [facility] | + + + + + | Calculated T Dyke | 134 | degrees | [facility] [...] | + + + + + | [facility] | [address] | [facility] [address] | | + + + + + Renal function panel (12/26/2018 5:38 AM) + + + + + | Component | Value | Ref Range | Performed At | + + + + + | SODIUM | 141 | 135 - 145 mmol/L | [facility] | + + + + [...] (L)Comment: GFR <60: | >60 mL/min/1.73m2 | [facility] | | | CHRONIC KIDNEY [...] the | | | | | MDRD [facility] traceable | | | | | equation.Testing | | | | | performed at [facility];[address] | | | | | [address];[place], [place] | | | | | [address] | | | + + + + + + + | Specimen | + + | Blood | + + + + + + + | Performing | Address | City/State/Zipcode | Phone Number | | Organization | | | | + + + + + | [facility] | [address] | [place] [address] | | + + + + + Vancomycin, random (12/26/2018 5:38 AM) + + + + + | Component | Value | Ref Range | Performed At | + + + + + | VANCOMYCIN,RANDOM | 22.7Comment: Testing | ug/mL | [facility] | | | performed at [facility];[address] | | | | | [address];[place], [place] | | | | | [address] | | | + + + + + + + | Specimen | + + | Blood | + + + + + + + | Performing | Address | City/State/Zipcode | Phone Number | | Organization | | | | + + + + + | [facility] | [address] | [place] [address] | | + + + + + Body fluid cell count (12/25/2018 2:50 AM) + + + + + | Component | Value | Ref Range | Performed At | + + + + + | FLUID TYPE | PERITONEAL | | [facility] | + + + + + | COLOR | COLORLESS | | [facility] | + + + + + | APPEARANCE | CLEAR | | [facility] | + + + + + | RBC'S | <90477 | /mm3 | [facility] | + [...] | MONOCYTES/MACROPHAGE | 3 | % | [facility] | | S | | | | + + + + + | CELLS COUNTED | 100Comment: Testing | | [facility] | | | performed at [facility];[address] | | | | | [address];[place] | | | | | [address] | | | + + + + + + + | Specimen | + + | Other - Peritoneal | | [place] | + + + + + + + | Performing | Address | City/State/Zipcode | Phone Number | | Organization | | | | + + + + + | [facility] | [address] | [place] [address] | | + + + + + [...] + + + | [facility] | [address] | [place] [address] | [phone] | | LABORATORY | Blvd[address] | | [...] | + + + + + | [facility] | [address] | [place] [address] | [phone] | | LABORATORY | Any. | | | + + + + + | [facility] | [address] | [place] [address] | | + + + + + [...] (L)Comment: GFR <60: | >60 mL/min/1.73m2 | [facility] | | | CHRONIC KIDNEY DISEASE, | [...] the | | | | | MDRD IDFL traceable | | | | | equation.Testing | | | | | performed at [facility], [address] | | | | | [facility], | | | | | [place] [address] | | | + + + + + + + | Specimen | + + | Blood | + + + + + + + | Performing | Address | City/State/Zipcode | Phone Number | | Organization | | | | + + + + + | [facility] | [address] | [place] [address] | [phone] | | LABORATORY | [address]vd[address] | | | + + + + + Magnesium (12/25/2018 2:08 AM) + + + + + | Component | Value | Ref Range | Performed At | + + + + + | MAGNESIUM | 3.0 (H)Comment: Testing | 1.7 - 2.4 mg/dL | [facility] | | | performed at [facility], [address] | | LABORATORY | | | [facility], | | | | | [place] [address] | | | + + + + + + + | Specimen | + + | Blood | + + + + + + + | Performing | Address | City/State/Zipcode | Phone Number | | Organization | | | | + + + + + | [facility] | [address] | [place] [address] | [phone] | | LABORATORY | [address]vd[address] | | [...] performed at | | | | | [facility], [address] | | | | | [place] | | | | | [address] | | | + + + + + + + | Specimen | + + | Blood | + + + + + + + | Performing | Address | City/State/Zipcode | Phone Number | | Organization | | | | + + + + + | [facility] | [address] | [place] [address] | [phone] | | LABORATORY | Blvd[address] | | [...] + + + | [facility] | [address] | [place] [address] | [phone] | | LABORATORY | Blvd[address] | | | + + + + + | [facility] | [address] | [place] [address] | | + + + + + MRSA by PCR (12/25/2018 1:29 AM) + + + + + | Component | Value | Ref Range | Performed At | + + + + + | SOURCE | NARES(NOSE) | | [facility] | + + + + + | MRSA PCR | NEGATIVEComment: Testing | NEGATIVE | [facility] | | | performed at [facility];[address] | | [address];[place] | | | | | [address] | | | + + + + + + + | Specimen | + + | Nasopharyngeal - | | Nares(Nose) | + + + + + + + | Performing | Address | City/State/Zipcode | Phone Number | | Organization | | | | + + + + + | [facility] | [address] | [place] [address] | | + + + + + [...] +---+ | | | + +---+ | atkugweyh-rydbmd-vxtrijpzmc | | | ([facility]) suspension [...]
--- OUTSIDE RECORDS SUMMARY | ~2019-01-31 | XMS | Clinical Summary ---
Demographics + + + | Address | [address] | | | [place] [address] | + + + | Home Phone | | + + + | Preferred Language | Unknown | + + + | Marital Status | | + + + | Presybeterian Affiliation | Unknown | + + + | Race | Unknown | + + + | Ethnic Group | Unknown | + + + Author + + + | Author | [facility] | | | and [place] | + + + | Organization | [facility] | | | and [place] | + + + | Address | Unknown | + + + | Phone | Unavailable | + + + Support + + + + + | Name | Relationship | Address | Phone | + + + + + | Lyubov Smalls | ECON | [place], [place] | | | | | [address] | | + + + + + | Lydia Palm | ECON | [place], [place] | | | | | [address] | | + + + + + Care Team Providers + +------+ + | Care Used Car Lot Porter Name | Role | Phone | + [...] +--------+ +---------+ | MEDICARE | MEDICA | [id number] | Medica | [phone] | | | RE | | re | [phone] | | | | PART A | | | | | | | AND B | | | | | + +--------+ +--------+ +---------+ | BCBS | BCBS | [id number] | PPO | | | | | [...] | Self [birth year] | Home: | [address] [place] [address] [address] | | TREVOR | al/Fam | | 1979 | [phone] | [place] | | | caesar | | | [phone] | [address] | + +--------+ +--------+ + +
--- OUTSIDE RECORDS SUMMARY | ~2019-01-31 | XMS | Encounter Summary ---
Demographics + + + | Address | [address] | | | [place] [address] | + + + | Home Phone | | + + + | Preferred Language | Unknown | + + + | Marital Status | | + + + | Scientologist Affiliation | Unknown | + + + | Race | Unknown | + + + | Ethnic Group | Unknown | + + + Author + + + | Author | [facility] | + + + | Organization | [facility] | + + + | Address | Unknown | + + + | Phone | Unavailable | + + + Support + + + + + | Name | Relationship | Address | Phone | + + + + + | Lyubov Smalls | [address]HA | [place] | | | | | [address] | | + + + + + | Lydia Palm | ECON | [place] | | | | | [address] | | + + + + + | Jose C Oconnor | ECON | [address] | | | | | [place] | | | | | [address] | | + + + + + Care Team Providers + +------+ + | Care Computer Programmer Chief Name | Role | Phone | [...] | | [address] | [address] [place], [place] | Dialysis Rounding | | | | [place] [address] | [phone] | Note) | | | | [phone] | | | +--------+ + + + [...]
--- OUTSIDE RECORDS SUMMARY | ~2019-01-31 | XMS | Encounter Summary ---
Demographics + + + | Address | [address] | | | [place] [address] | + + + | Home Phone | | + + + | Preferred Language | Unknown | + + + | Marital Status | | + + + | Mosque Affiliation | Unknown | + + + | Race | Unknown | + + + | Ethnic Group | Unknown | + + + Author + + + | Author | [facility] | + + + | Organization | [facility] | + + + | Address | Unknown | + + + | Phone | Unavailable | + + + Support + + + + + | Name | Relationship | Address | Phone | + + + + + | Lyubov Smalls | [address]HA | [place] | | | | | [address] | | + + + + + | Lydia Palm | ECON | [place] | | | | | [address] | | + + + + + | Jose C Oconnor | ECON | [address] | | | | | [place] | | | | | [address] | | + + + + + Care Team Providers + +------+ + | Care Gut Cleaner Name | Role | Phone | + +------+ + | Juan F Whtiley MD | PCP | | + +------+ [...] | | [address] | [address] [place], [place] | Dialysis Rounding | | | | [place] [address] | [phone] | Note) | | | | [phone] | | | +--------+ + + + [...]
--- OUTSIDE RECORDS SUMMARY | ~2019-01-31 | XMS | Encounter Summary ---
Demographics + + + | Address | [address] | | | [place] [address] | + + + | Home Phone [...] | [facility] | + + + | Organization | [facility] | + + + | Address | Unknown | + + + | Phone | Unavailable | + + + Support + + + + + | Name | Relationship | Address | Phone | + + + + + | Lyubov Smalls | [address] | [place] | | | | | [address] | | + + + + + | Lydia Palm | ECON | [place] | | | | | [address] | | + + + + + | Jose C Oconnor | ECON | [address] | | | | | [place] | | | | | [address] | | + + + + + Care Team Providers + +------+ + | Care Business Attorney Name | Role | Phone | + [...] | | [address] | [address] [place], [place] | Dialysis Rounding | | | | [place] [address] | [phone] | Note) | | | | [phone] | | | +--------+ + + + [...]
--- OUTSIDE RECORDS SUMMARY | ~2019-01-31 | XMS | Encounter Summary ---
Demographics + + + | Address | [address] | | | [place] [address] | + + + | Home Phone | | + + + | Preferred Language | Unknown | + + + | Marital Status | | + + + | Taoism Affiliation | Unknown | + + + | Race | Unknown | + + + | Ethnic Group | Unknown | + + + Author + + + | Author | [facility] | + + + | Organization | [facility] | + + + | Address | Unknown | + + + | Phone | Unavailable | + + + Support + + + + + | Name | Relationship | Address | Phone | + + + + + | Lyubov Smalls | MASHA | [place] | | | | | [address] | | + + + + + | Lydia Palm | ECON | [place] | | | | | [address] | | + + + + + | Jose C Oconnor | ECON | [address] | | | | | [place] | | | | | [address] | | + + + + + Care Team Providers + +------+ + | Care Retail Pricing Coordinator Name | Role | Phone | [...] | | | | | ([facility]) | | | | | | | Bandemia | | | | | | | ESRD on | | | | | | | peritoneal | | | | | | | dialysis | | | | | | | ([facility]) | | | +--------+--------+ + + + + Encounter Details +--------+ + + + + | Date | Type | Department | Care Team | Description | +--------+ + + + + | 12/07/ | Hospital | [facility] | Fito Crespo, | Spontaneous | | 2019 - | Encounter | [facility] 8th | MD Ebony PETERS | bacterial | | | | [facility] | EMERGENCY DEPARTMENT | peritonitis (HCC) | | 12/10/ | | [address] | [place] [address] | (Primary Dx); | | 2018 | | [place] [address] | [phone] | Bandemia; ESRD on | | | | [phone] | | peritoneal dialysis | | | | | Ginger Bass | ([facility]); Anemia in | | | | | [place], MD [address] | ESRD (end-stage | | | | | [address] | renal disease) | | | | | [place] [address] | ([facility]); Peritonitis | | | | | [phone] | due to infected | | | | | | peritoneal dialysis | | | | | Hilda Edwards DO | catheter, subsequent | | | | | [address] | encounter ([facility]) | | | | | [place] [address] | | | | | | [phone] | | | | | | | [...] Information: [place]: [place] [address] [place] [id number] Santos Rey MD [facility] Yahir Quinteros [address] [address] Medication List START taking these medications cefdinir [...] Refills: 0 Commonly known as: KlonoPIN ergocalciferol 92367 units capsule Refills: 0 Commonly known as: [...] cannot be sent through Care Everywhere.Cefdinir capsules (Cypriot )Metoclopramide tablets (Cypriot)Metronidazole tablets or capsules (Cypriot)in this encounte r Medications at Time of [...] | | | | | | (DRISDOL) [address] | mouth once a week. | | [...] note may be different from the original. [facility] Service: Hospitalist Progress Note Hospital [...] may be dif ferent from the original. [facility] Service: Infectious Disease Progress Note [...] may be diffe rent from the original. [facility] Service: Hospitalist Progress Note Hospital [...] Full Code Hilda Edwards, DO 12/08/2018FrApril isaac, [facility] - 12/07/2018 11:24 PM PSTRenal Dosing Monitoring: [...] | + +--------+ + + + | [facility] CARD PANEL W/O | STAT | 12/07/2018 [...] 3 completed | | | shifts: In: 08325 [P.O.:1110; I.V.:2701; Other:83008] Out: 89420 | | | [Emesis/NG output:240; Other:26428] Assessment: Ms. Oconnor is a | | [...] 3 completed | | | shifts: In: 35278 [P.O.:1200; I.V.:2902; Other:57773] Out: 47402 | | | [Other:19683] Assessment: Ms. Oconnor is a 38 y.o. [...] | | | | | performed at [facility], [address] | | | | | [facility], | | | | | [place] [address] | | | + + + + + + + | Specimen | + + | Blood | + + + + + + + | Performing | Address | City/State/Zipcode | Phone Number | | Organization | | | | + + + + + | [facility] | [address] | [place] [address] | [phone] | | LABORATORY | Blvd. | | [...] | LABORATORY | | | performed at [facility], [address] | | | | | [address], | | | | | [place] [address] | | | | | | | | + + + + + + + | Specimen | + + | Blood | + + + + + + + | Performing | Address | City/State/Zipcode | Phone Number | | Organization | | | | + + + + + | [facility] | [address] | [place] [address] | [phone] | | LABORATORY | Blvd. | | [...] RV | | | S': 0.11 m/s Signal Engineer: [email or web address] Authenticated by: Imtiaz Mari | | | Report Date/Time: 12-08-2018 17:48:59 | | + + + + + | Procedure Note | + + | Migue Schumacher In 12/08/2018 5:49 PM PST Patient Name: Shlomo OCONNOR of | | : 1980Accession: [id number] Physician: Imtiaz Mari | | INDICATIONS p [...] mlLAESV Index (A-L): 26.00 ml/m2LAAs A2C: 16.18 [id number] | | A-L A2C: 41.14 mlLALs A2C: 5.40 cmLAAs A4C: 18.51 [id number] A-L A4C: 51.64 | | mlLALs A4C: 5.63 cmTAPSE: 1.80 cmAV maxP.66 mmHgAV meanP.54 mmHgAV Vmax: | | 1.38 m/Monica Vmean: 1.00 m/Monica VTI: 26.68 cmAVA Vmax: 2.35 cm2AVA (VTI): 2.52 | | he7TQAM Vmax: 0.00 cm2/m2AVAI (VTI): 0.00 cm2/m2LVOT maxP.36 [...] |RV S': 0.11 m/s | | | |Signal Engineer: MW | |Authenticated by: Imtiaz Mari MD [...] C[facility]US [facility] | [address] | [place] [address] | | + + + + + [...] 0.04 | 0.00 - 0.04 ng/mL | [facility] | | | ng/mL or [...] performed | | | | | at [facility];[address] [place] [address] | | | | | Blvd;[place] [address] | | | + + + + + + + | Specimen | + + | Blood | + + + + + + + | Performing | Address | City/State/Zipcode | Phone Number | | Organization | | | | + + + + + | [facility] | [address] | [place] [address] | | + + + + + Phosphorus (12/08/2018 6:03 AM) + + + + + | Component | Value | Ref Range | Performed At | + + + + + | PHOSPHORUS | 6.1 (H)Comment: Testing | 2.3 - 4.8 mg/dL | [facility] | | | performed at [facility], [address] | | LABORATORY | | | [address], | | | | | [place] [address] | | | + + + + + + + | Specimen | + + | Blood | + + + + + + + | Performing | Address | City/State/Zipcode | Phone Number | | Organization | | | | + + + + + | [facility] | [address] | [place] [address] | [phone] | | LABORATORY | Any. | | | + + + + + Magnesium (12/08/2018 6:03 AM) + + + + + | Component | Value | Ref Range | Performed At | + + + + + | MAGNESIUM | 3.1 (H)Comment: Testing | 1.7 - 2.4 mg/dL | [facility] | | | performed at [facility], [address] | | LABORATORY | | | [address], | | | | | [place] [address] | | | + + + + + + + | Specimen | + + | Blood | + + + + + + + | Performing | Address | City/State/Zipcode | Phone Number | | Organization | | | | + + + + + | [facility] | [address] | [place] [address] | [phone] | | LABORATORY | Blvd. | | [...] (H) | 0.50 - 1.00 mg/dL | [facility] | | | | | LABORATORY | + + + + + | BUN/CREAT | 3 | | [facility] | | | | | LABORATORY | + + + + + | CALCIUM | 8.1 (L) | 8.5 - 10.5 mg/dL | [facility] | | | | | LABORATORY | + + + + + | EGFR | 3 (L)Comment: GFR <60: | >60 mL/min/1.73m2 | [facility] | | | CHRONIC KIDNEY DISEASE, | [...] | | | | | performed at [facility], [address] | | | | | [facility], | | | | | [place] [address] | | | + + + + + + + | Specimen | + + | Blood | + + + + + + + | Performing | Address | City/State/Zipcode | Phone Number | | Organization | | | | + + + + + | [facility] | [address] | [place] [address] | [phone] | | LABORATORY | Any. | | [...] | [facility] | | | performed at [facility], [address] | | LABORATORY | | | [address], | | | | | [place] [address] | | | + + + + + + + | Specimen | + + | Blood | + + + + + + + | Performing | Address | City/State/Zipcode | Phone Number | | Organization | | | | + + + + + | [facility] | [address] | [place] [address] | [phone] | | LABORATORY | Blvd. | | | + + + + + MRSA by PCR (12/08/2018 1:18 AM) + + + + + | Component | Value | Ref Range | Performed At | + + + + + | SOURCE | NARES(NOSE) | | [facility] | + + + + + | MRSA PCR | NEGATIVEComment: Testing | NEGATIVE | [facility] | | | performed at [facility];[address];[place] | | | | | [address] | | | + + + + + + + | Specimen | + + | Nasopharyngeal - | | Nares(Nose) | + + + + + + + | Performing | Address | City/State/Zipcode | Phone Number | | Organization | | | | + + + + + | [facility] | [address] | [place] [address] | | + + + + + [...] | + + + + + | [facility] | [address] | [place] [address] | [phone] | | LABORATORY | Any. | | | + + + + + | [facility] | [address] | [place] [address] | | + + + + + Troponin I (12/07/2018 11:53 PM) + + + + + | Component | Value | Ref Range | Performed At | + + + + + | TROPONIN I | 0.026Comment: 0.04 | 0.00 - 0.04 ng/mL | [facility] | | | ng/mL or [...] performed | | | | | at [facility] [address] | | | | | [address];[place] [address] | | | + + + + + + + | Specimen | + + | Blood | + + + + + + + | Performing | Address | City/State/Zipcode | Phone Number | | Organization | | | | + + + + + | [facility] | [address] | [place] [address] | | + + + + + Body fluid cell count (12/07/2018 8:00 PM) + + + + + | Component | Value | Ref Range | Performed At | + + + + + | FLUID TYPE | PERITONEAL FLUID | | [facility] | + + + + [...] | MONOCYTES/MACROPHAGE | 26 | % | [facility] | | S | | | | + + + + + | CELLS COUNTED | 100Comment: Testing | | [facility] | | | performed at [facility];[address] | | | | | [address];[place], [place] | | | | | [address] | | | + + + + + + + | Specimen | + + | Other - Peritoneal | | [place] | + + + + + + + | Performing | Address | City/State/Zipcode | Phone Number | | Organization | | | | + + + + + | [facility] | [address] | [place] [address] | | + + + + + [...] STAIN | NO ORGANISMS SEEN | | [facility] | + + + + [...] [facility] | [address] | [place] [address] | [phone] | | LABORATORY | Blvd. | | | + + + + + | [facility] | [address] | [place] [address] | | + + + + + [...] [facility] | [address] | [place] [address] | | + + + + + [...] | + + + + + | [facility] | [address] | [place] [address] | | + + + + + [...] + + + + | Calculated P [place] | 47 | degrees | [facility] | + + + + + | Calculated R [place] | 114 | degrees | [facility] | + + + + + | Calculated T [place] | 68 | degrees | [facility] EKG [...] -COMPUTER (500), | | | | | marketing editor Rashel Polanco | | | | | Rogelio (123) on 12/08/2018 | | | | | 2:29:38 AM | | | + + + + + + + + + + | Performing | Address | City/State/Zipcode | Phone Number | | Organization | | | | + + + + + | [facility] | [address] | [place] [address] | | + + + + + [...] Testing | 2.3 - 4.8 mg/dL | [facility] | | | performed at [facility];[address] | | | | | [employer];[place] | | | | | [address] | | | + + + + + + + | Specimen | + + | Blood | + + + + + + + | Performing | Address | City/State/Zipcode | Phone Number | | Organization | | | | + + + + + | [facility] | [address] | [facility] [address] | | + + + + + Magnesium (12/07/2018 3:30 PM) + + + + + | Component | Value | Ref Range | Performed At | + + + + + | MAGNESIUM | 3.2 (H)Comment: Testing | 1.7 - 2.4 mg/dL | [facility] | | | performed at [facility];[address] | | | | | [address];[place] | | | | | [address] | | | + + + + + + + | Specimen | + + | Blood | + + + + + + + | Performing | Address | City/State/Zipcode | Phone Number | | Organization | | | | + + + + + | [facility] | [address] | [place] [address] | | + + + + + BNP (12/07/2018 3:30 PM) + + + + + | Component | Value | Ref Range | Performed At | + + + + + | BRAIN NATRIURETIC | 50.36Comment: Testing | 0 - 100 pg/mL | [facility] | | PEPTIDE | performed at [facility];[address] | | | | | [address];[place] | | | | | [address] | | | + + + + + + + | Specimen | + + | Blood | + + + + + + + | Performing | Address | City/State/Zipcode | Phone Number | | Organization | | | | + + + + + | [facility] | [address] | [place] [address] | | + + + + + D-dimer, quantitative (12/07/2018 3:30 PM) + + + + + | Component | Value | Ref Range | Performed At | + + + + + | D DIMER, | 0.34Comment: Testing | 0.19 - 0.50 mg/L FEU | [facility] | | QUANTITATIVE | performed at [facility];[address] | [address] | | [address];[place] | | | | | [address] | | | + + + + + + + | Specimen | + + | Blood | + + + + + + + | Performing | Address | City/State/Zipcode | Phone Number | | Organization | | | | + + + + + | [facility] | [address] | [place] [address] | | + + + + + Lipase (12/07/2018 3:30 PM) + + + + + | Component | Value | Ref Range | Performed At | + + + + + | LIPASE | 51Comment: NOTE NEW | 12 - 53 U/L | [facility] | | | REFERENCE RANGETesting | | | | | performed at [facility];[address] | | | | | [employer];[place] | | | | | [address] | | | + + + + + + + | Specimen | + + | Blood | + + + + + + + | Performing | Address | City/State/Zipcode | Phone Number | | Organization | | | | + + + + + | [facility] | [address] | [place] [address] | | + + + + + C-reactive protein (12/07/2018 3:30 PM) + + + + + | Component | Value | Ref Range | Performed At | + + + + + | CRP | 2.5 (H)Comment: Testing | <0.5 mg/dL | [facility] | | | performed at [facility];[address] | [address];[place] | | | | | [address] | | | + + + + + + + | Specimen | + + | Blood | + + + + + + + | Performing | Address | City/State/Zipcode | Phone Number | | Organization | | | | + + + + + | [facility] | [address] | [place] [address] | | + + + + + Troponin I (12/07/2018 3:30 PM) + + + + + | Component | Value | Ref Range | Performed At | + + + + + | TROPONIN I | 0.026Comment: Testing | 0.00 - 0.04 ng/mL | [facility] | | | performed at [facility];[address] | | | | | [address];[place], [place] | | | | | [id number] ON 12/25 | | | | | [...] | + + + + + | [facility] | [address] | [place] [address] | | + + + + + [...] 45.1 | 37 - 53 fl | [facility] | + + + + + | PLT | 484 (H) | 150 - 400 K/uL | [facility] | + + + + + | MPV | 8.0 | fl | [facility] | + + + + + | DIFF TYPE | MANUAL | | [facility] | + + + + + | Neutrophils Manual | 78 | % | [facility] | + + + + + [...] | 1.3 | 1.0 - 2.4 | [facility] | + + + + + | TBIL | 0.2 | 0.1 - 1.5 mg/dL | [facility] | + + + + + | ALK PHOS | 126 (H) | 35 - 115 U/L | [facility] | + + + + + | AST | 15 | 10 - 45 U/L | [facility] | + + + + + | ALT | 11 | 10 - 65 U/L | [facility] | + + + + + | EGFR | 3 (L)Comment: GFR <60: | >60 mL/min/1.73m2 | [facility] | | | CHRONIC KIDNEY [...] 146 | 30 - 240 U/L | [facility] | + + + + + | INR | 0.9Comment: REFERENCE | | [facility] | | | RANGE:0.9 - [...] 28 | 23 - 32 seconds | [facility] | + + + + + | MMB | 1.7 | 0.5 - 3.6 ng/mL | [facility] | + + + + + | CK-MB Index | 1.2Comment: CK INDEX | | [facility] | | | INTERPRETATION: | [...] | | | | | performed at [facility];[address] | | | | | [address];[place] | | | | | [address] | | | + + + + + + + + + + | Performing | Address | City/State/Zipcode | Phone Number | | Organization | | | | + + + + + | [facility] | [address] | [place] [address] | | + + + + + [...] | dose on [facility] 12/10/18 at 0900, | | PST | [...]
--- OUTSIDE RECORDS SUMMARY | ~2019-01-31 | XMS | Encounter Summary ---
Demographics + + + | Address | [address] | | | [place] [address] | + + + | Home Phone [...] + + | Author | [facility] | + + + | Organization | [facility] | + + + | Address | Unknown | + + + | Phone | Unavailable | + + + Support + + + + + | Name | Relationship | Address | Phone | + + + + + | Lyubov Smalls | MASHA | [place] | | | | | [address] | | + + + + + | Lydia Palm | ECON | [place] | | | | | [address] | | + + + + + | Jose C Oconnor | ECON | [address] | | | | | [place] | | | | | [address] | | + + + + + Care Team Providers + +------+ + | Care Hadoop Analyst Name | Role | Phone | [...] | | General | Diagnoses | | [facility] | | | | Surgery | Hypokalemia | | Surgical [address] | | | | | | [address] | | | | | Diverticulit | | [place], [place] | | | | | is ESRD on | | [address] Phone: | | | | | peritoneal | | [phone] | | | | | dialysis | | Fax: | | | | | ([facility]) | | [phone] | +--------+--------+ + + + + Encounter Details +--------+ + + + + | Date | Type | Department | Care Team | Description | +--------+ + + + + | 01/05/ | Hospital | [facility] | [place] Augustin, | Diverticulitis | | 2019 - | Encounter | [facility] | [address] | (Primary Dx); | | | | Surgical [address] | [place] [address] | Hypokalemia; ESRD on | | 01/09/ | | Blvd [place], [place] | [phone] | peritoneal dialysis | | 2018 | | [address] | | (HCC); End-stage | | | | | Salvador Ruiz MD | renal disease on | | | | | [address] | peritoneal dialysis | | | | | [place] [address] | (HCC) | | | | | [phone] | | | | | | | | | | | | Chris Smart MD | | | | | | [address] | | | | | | [place] [address] | | | | | | [phone] | | | | | | | [...] may be different from victor manuel mckeon. [facility] Service: Hospitalist Physician Discharge Summary Pt: Ramona [...] Refills: 0 Commonly known as: NORVASC ergocalciferol 92783 units capsule Refills: 0 Commonly known as: [...] if needed. Follow-[place]: [place] [address] [place] [address] In 1 week Santos Chi MD [address] [place] [id number] In 1 week Discharge took more than 35 minutes, to include final examination, discussion of admission, and preparation of prescriptions, instructions for ongoing care, follow up and dictation of summary. Signed: CHRIS SMART MD 01/09/2019 10:14 AM Dictation software, Istpika, used which may contain error for similar [...] color) Unexpected vaginal bleeding Date Last Reviewed: 07/11/201619999947-2776 [employer] [place] [address]. All righ ts reserved. This information is [...] | | | | | | (DRISDOL) [address] | mouth once a week. | | [...] different from the original. [facility] Service: NEPHROLOGY PD/ Progress Note Ramona Oconnor 38 y.o. [id number] 431/431-1 female [facility] Day: LOS: 4 days Patient with [...] 10/25/15 showed normal sized kidneys. 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 Personal communication requested for any clarification. Portions of my notes may have been carried over for continuity of care. Linden Monte MD - 01/08/2019 4:59 PM PSTFormatting of this note may be different from the original. [facility] Service: NEPHROLOGY PD/ Progress Note Ramona Haresh Oconnor 38 y.o. [id number] 431/431-1 female [facility] Day: [...] 10/25/15 showed normal sized kidneys. 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 Personal communication requested for any clarification. Portions of my notes may have been carried over for continuity of care. Chris Smart MD - 01/08/2019 10:54 AM PSTFormatting of this note may be different from victor manuel mckeon. [facility] Service: Hospitalist Progress Note Pt: Ramona Oconnor AGE/SEX: 38 y.o. female ROOM: [address] [place] [address] : 1980 PCP: [facility] ADMIT [...] 01/08/19 0650 Gross per 24 hour Intake 22941 ml Output 04373 ml Net 1092 ml Patient Vitals for [...] MD, FACP 01/08/2019 10:54 AM Dictation software, Istpika, used which may contain error for similar sounding words even af ter review. Personal communication requested for any clarification. Portions of this chart may have been copied from previous notes for continuity of care purp Linden Gil MD - 01/07/2019 6:00 PM PSTFormatting of this note may be different from the original. [facility] Service: NEPHROLOGY PD/ Progress Note Ramona Hutson Elvin 38 y.o. [id number] 431/431-1 female [facility] Day: LOS: 2 days Patient with [...] 10/25/15 showed normal sized kidneys. 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 Personal communication requested for any clarification. Portions of my notes may have been carried over for continuity of care. Chris Smart MD - 01/07/2019 9:50 AM PSTFormatting of this note may be different from victor manuel mckeon. [facility] Service: Hospitalist Progress Note Pt: Ramona Oconnor AGE/SEX: 38 y.o. female ROOM: [facility]/431-1 : 1980 PCP: JUAN F WHITLEY [...] 01/07/19 0645 Gross per 24 hour Intake 78516 ml Output 43121 ml Net 2724 ml Patient Vitals for [...] MD, FACP 01/07/2019 9:50 AM Dictation software, Istpika, used which may contain error for similar sounding words even af ter review. Personal communication requested for any clarification. Portions of this chart may have been copied from previous notes for continuity of care purp Chris Hannon MD - 01/06/2019 12:07 PM PSTFormatting of this note may be different from victor manuel ny original. [facility] Service: Hospitalist Progress Note Pt: Ramona Oconnor AGE/SEX: 38 y.o. female ROOM: [address] [place] [address] : 1980 PCP: JUAN F WHITLEY ADMIT [...] 01/06/19 0740 Gross per 24 hour Intake 52432 ml Output 22050 ml Net 425 ml Patient Vitals for [...] MD, FACP 01/06/2019 12:07 PM Dictation software, Istpika, used which may contain error for similar sounding words even af ter review. Personal communication requested for any clarification. Portions of this chart may have been copied from previous notes for continuity of care purp Linden Gil MD - 01/06/2019 12:03 PM PSTFormatting of this note may be different from the original. [facility] Service: NEPHROLOGY PD/ Progress Note Ramona Oconnor 38 y.o. [id number] 431/431-1 female [facility] Hospital Day: LOS: 1 day Patient [...] 10/25/15 showed normal sized kidneys. 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 GERD (gastroesophageal reflux disease) Hypercalcemia 09/07/2017 Hyperphosphatemia 10/28/2015 Hypocalcemia 10/28/2015 Hypokalemia 06/04/2017 Itching 10/28/2015 Metabolic acidosis 10/28/2015 Obesity Peritonitis associated with peritoneal dialysis (HCC) 01/24/2017 Peritonitis due to infected peritoneal dialysis catheter (HCC) 12/08/2018 Secondary hyperparathyroidism (HCC) Uremia 10/28/2015 Past Surgical History Procedure Laterality Date ESOPHAGOGASTRODUODENOSCOPY N/A 09/10/2017 Procedure: ESOPHAGOGASTRODUODENOSCOPY; Surgeon: Beena Peters MD; Location: [facility]; Service: Gastroenterology; Laterality: N/A; PERITONEAL CATHETER [...] earlier and charting completed later Dictation software, Istpika, used which may contain error for similar [...] | [facility] | | | performed at [facility], [address] | | LABORATORY | | | [address] [facility], | | | | | [place] [address] | | | + + + + + + + | Specimen | + + | Blood | + + + + + + + | Performing | Address | City/State/Zipcode | Phone Number | | Organization | | | | + + + + + | [facility] | [address] | [place] [address] | [phone] | | LABORATORY | [address]vd[address] | | | + + + + + Basic metabolic panel (01/09/2019 5:46 AM) + + + + + | Component | Value | Ref Range | Performed At | + + + + + | SODIUM | 140 | 135 - 145 mmol/L | [facility] | | | | | LABORATORY | + + + + + | POTASSIUM | 4.2 | 3.5 - 4.9 mmol/L | [facility] | | | | | LABORATORY | [...] (H) | 0.50 - 1.00 mg/dL | [facility] | | | | | LABORATORY | + + + + + | BUN/CREAT | 2 | | [facility] | | | | | LAB[facility]ORY | + + + + + | CALCIUM | 7.1 (L) | 8.5 - 10.5 mg/dL | [facility] | | | | | LABORATORY | + + + + + | EGFR | 3 (L)Comment: GFR <60: | >60 mL/min/1.73m2 | [facility] | | | CHRONIC KIDNEY DISEASE, [...] | | | | | performed at [facility], [address] | | | | | [facility], | | | | | [place] [address] | | | + + + + + + + | Specimen | + + | Blood | + + + + + + + | Performing | Address | City/State/Zipcode | Phone Number | | Organization | | | | + + + + + | [facility] | [address] | [place] [address] | [phone] | | LABORATORY | Any. | | [...] | [facility] | | | performed at [facility], [address] | | LABORATORY | | | [address] [place], | | | | | [place] [address] | | | + + + + + + + | Specimen | + + | Blood | + + + + + + + | Performing | Address | City/State/Zipcode | Phone Number | | Organization | | | | + + + + + | [facility] | [address] [facility] | [place] [address] | [phone] | | LABORATORY | Blvd[address] | | | + + + + + Magnesium (01/08/2019 5:26 AM) + + + + + | Component | Value | Ref Range | Performed At | + + + + + | MAGNESIUM | 2.0Comment: Testing | 1.7 - 2.4 mg/dL | [facility] | | | performed at [facility], [address] | | LABORATORY | | | [facility] [address], | | | | | [place] [address] | | | + + + + + + + | Specimen | + + | Blood | + + + + + + + | Performing | Address | City/State/Zipcode | Phone Number | | Organization | | | | + + + + + | [facility] | [address] [facility] | [place] [address] | [phone] | | LABORATORY | Blvd. | | [...] | | | | | performed at [facility], [address] | | | | | [facility], | | | | | [place] [address] | | | + + + + + + + | Specimen | + + | Blood | + + + + + + + | Performing | Address | City/State/Zipcode | Phone Number | | Organization | | | | + + + + + | [facility] | [address] [facility] | [place] [address] | [phone] | | LABORATORY | Blvd. | | [...] | [facility] | | | performed at [facility], [address] | | LABORATORY | | | [facility], | | | | | [place] [address] | | | + + + + + + + | Specimen | + + | Blood | + + + + + + + | Performing | Address | City/State/Zipcode | Phone Number | | Organization | | | | + + + + + | [facility] | [address] [facility] | [place] [address] | [phone] | | LABORATORY | Blvd[address] | | [...] (H)Comment: | 0.50 - 1.00 mg/dL | [facility] | | | SPECIMEN SLIGHTLY | | LABORATORY | | | HEMOLYZED | | | + + + + + | BUN/CREAT | 3 | | [facility] | | | | | LABORATORY | + + + + + | CALCIUM | 6.8 (L) | 8.5 - 10.5 mg/dL | [facility] | | | | | LABORATORY | + + + + + | EGFR | 3 (L)Comment: GFR <60: | >60 mL/min/1.73m2 | [facility] | | | CHRONIC KIDNEY DISEASE, [...] | | | | | performed at [facility], [address] | | | | | [facility], | | | | | [place] [address] | | | + + + + + + + | Specimen | + + | Blood | + + + + + + + | Performing | Address | City/State/Zipcode | Phone Number | | Organization | | | | + + + + + | [facility] | [address] [facility] | [place] [address] | [phone] | | LABORATORY | Any. | | | + + + + + Magnesium (01/07/2019 5:18 AM) + + + + + | Component | Value | Ref Range | Performed At | + + + + + | MAGNESIUM | 2.1Comment: Testing | 1.7 - 2.4 mg/dL | [facility] | | | performed at [facility], [address] | | LABORATORY | | | [facility], | | | | | [place] [address] | | | + + + + + + + | Specimen | + + | Blood | + + + + + + + | Performing | Address | City/State/Zipcode | Phone Number | | Organization | | | | + + + + + | [facility] | [address] [facility] | [place] [address] | [phone] | | LABORATORY | Blvd[address] | | [...] | | | | | performed at [facility], [address] | | | | | [facility], | | | | | [place] [address] | | | + + + + + + + | Specimen | + + | Blood | + + + + + + + | Performing | Address | City/State/Zipcode | Phone Number | | Organization | | | | + + + + + | [facility] | [address] [facility] | [place] [address] | [phone] | | LABORATORY | Any. | | [...] performed at | | | | | [facility], [address] [facility] | | | | | [place] | | | | | [address] | | | + + + + + + + | Specimen | + + | Blood | + + + + + + + | Performing | Address | City/State/Zipcode | Phone Number | | Organization | | | | + + + + + | [facility] | [address] [facility] | [place] [address] | [phone] | | LABORATORY | Blvd[address] | | | + + + + + PROCALCITONIN (01/06/2019 5:29 AM) + + + + + | Component | Value | Ref Range | Performed At | + + + + + | PROCALCITONIN | 0.82 (H)Comment: | <0.5 ng/mL | [facility] | | | INTERPRETIVE | [...] performed | | | | | at [facility] [place] [address] | | | | | [facility];[place] [address] | | | + + + + + + + + + + | Performing | Address | City/State/Zipcode | Phone Number | | Organization | | | | + + + + + | [facility] | [address] | [place] [address] | | + + + + + C-reactive protein (01/06/2019 5:29 AM) + + + + + | Component | Value | Ref Range | Performed At | + + + + + | CRP | 0.3Comment: Testing | <0.5 mg/dL | [facility] | | | performed at [facility], [address] | | LABORATORY | | | [address], | | | | | [place] [address] | | | + + + + + + + | Specimen | + + | Blood | + + + + + + + | Performing | Address | City/State/Zipcode | Phone Number | | Organization | | | | + + + + + | [facility] | [address] [place] [address] | [place] [address] | [phone] | | LABORATORY | [address]vd[address] | | | + + + + + Phosphorus (01/06/2019 5:29 AM) + + + + + | Component | Value | Ref Range | Performed At | + + + + + | PHOSPHORUS | 8.8 (H)Comment: Testing | 2.3 - 4.8 mg/dL | [facility] | | | performed at [facility], [address] | | LABORATORY | | | [facility], | | | | | [place] [address] | | | + + + + + + + | Specimen | + + | Blood | + + + + + + + | Performing | Address | City/State/Zipcode | Phone Number | | Organization | | | | + + + + + | [facility] | [address] [facility] | [place] [address] | [phone] | | LABORATORY | Blvd. | | [...] | | | | | performed at [facility], [address] | | | | | [facility], | | | | | [place] [address] | | | + + + + + + + | Specimen | + + | Blood | + + + + + + + | Performing | Address | City/State/Zipcode | Phone Number | | Organization | | | | + + + + + | [facility] | [address] [place] [address] | [place] [address] | [phone] | | LABORATORY | Blvd[address] | | | + + + + + Magnesium (01/06/2019 5:29 AM) + + + + + | Component | Value | Ref Range | Performed At | + + + + + | MAGNESIUM | 2.3Comment: Testing | 1.7 - 2.4 mg/dL | [facility] | | | performed at [facility], [address] | | LABORATORY | | | [facility], | | | | | [place] [address] | | | + + + + + + + | Specimen | + + | Blood | + + + + + + + | Performing | Address | City/State/Zipcode | Phone Number | | Organization | | | | + + + + + | [facility] | [address] [facility] | [place] [address] | [phone] | | LABORATORY | Any. | | [...] | [facility] | | | performed at [facility], [address] | | LABORATORY | | | [address], | | | | | [place] [address] | | | + + + + + + + | Specimen | + + | Blood | + + + + + + + | Performing | Address | City/State/Zipcode | Phone Number | | Organization | | | | + + + + + | [facility] | [address] | [place] [address] | [phone] | | LABORATORY | Blvd[address] | | | + + + + + Troponin I (01/05/2019 11:47 AM) + + + + + | Component | Value | Ref Range | Performed At | + + + + + | TROPONIN I | 0.074 (H)Comment: 0.04 | 0.00 - 0.04 ng/mL | [facility] | | | ng/mL or [...] performed | | | | | at [facility];[address] | | | | | Any;[place] [address] | | | + + + + + + + | Specimen | + + | Blood | + + + + + + + | Performing | Address | City/State/Zipcode | Phone Number | | Organization | | | | + + + + + | [facility] | [address] | [place] [address] | | + + + + + [...] | [facility] | | | performed at [facility], [address] | | LABORATORY | | | [place] [address], | | | | | [place] [address] | | | + + + + + + + | Specimen | + + | Blood | + + + + + + + | Performing | Address | City/State/Zipcode | Phone Number | | Organization | | | | + + + + + | [facility] | [address] [facility] | [place] [address] | [phone] | | LABORATORY | Blvd[address] | | | + + + + + Troponin I (01/05/2019 5:42 AM) + + + + + | Component | Value | Ref Range | Performed At | + + + + + | TROPONIN I | 0.073 (H)Comment: 0.04 | 0.00 - 0.04 ng/mL | [facility] | | | ng/mL or [...] performed | | | | | at [facility];[address] | | | | | [address];[place] [address] | | | + + + + + + + | Specimen | + + | Blood | + + + + + + + | Performing | Address | City/State/Zipcode | Phone Number | | Organization | | | | + + + + + | [facility] | [address] | [place] [address] | | + + + + + Abiel-TORIBIO (01/05/2019 5:42 AM) + + + + + | Component | Value | Ref Range | Performed At | + + + + + | INR | 1.1Comment: REFERENCE | | [facility] | | | RANGE:0.9 - [...] | | | | | performed at [facility];[address] | | [address] [facility];[place], [place] | | | | | [address] | | | + + + + + + + | Specimen | + + | Blood | + + + + + + + | Performing | Address | City/State/Zipcode | Phone Number | | Organization | | | | + + + + + | [facility] | [address] | [place] [address] | | + + + + + [...] [place], | | | | | [place] [address] | | | + + + + + + + | Specimen | + + | Blood | + + + + + + + | Performing | Address | City/State/Zipcode | Phone Number | | Organization | | | | + + + + + | [facility] | [address] [place] [address] | [place] [address] | [phone] | | LABORATORY | [address]vd[address] | | | + + + + + Magnesium (01/05/2019 5:42 AM) + + + + + | Component | Value | Ref Range | Performed At | + + + + + | MAGNESIUM | 2.4Comment: Testing | 1.7 - 2.4 mg/dL | [facility] | | | performed at [facility], [address] | | LABORATORY | | | [facility], | | | | | [place] [address] | | | + + + + + + + | Specimen | + + | Blood | + + + + + + + | Performing | Address | City/State/Zipcode | Phone Number | | Organization | | | | + + + + + | [facility] | [address] [facility] [address] | [place] [address] | [phone] | | LABORATORY | Blvd[address] | | [...] | | | | | performed at [facility], [address] | | | | | [facility], | | | | | [place] [address] | | | + + + + + + + | Specimen | + + | Blood | + + + + + + + | Performing | Address | City/State/Zipcode | Phone Number | | Organization | | | | + + + + + | [facility] | [address] | [place] [address] | [phone] | | LABORATORY | Blvd. | | [...] | [facility] | | | performed at [facility], [address] | | LABORATORY | | | [address], | | | | | [place] [address] | | | + + + + + + + | Specimen | + + | Blood | + + + + + + + | Performing | Address | City/State/Zipcode | Phone Number | | Organization | | | | + + + + + | [facility] | [address] [facility] [address] | [place] [address] | [phone] | | LABORATORY | Blvd. | | [...] + + + + | Calculated P Forrest | 27 | degrees | [facility] | + + + + + | Calculated R Forrest | 79 | degrees | [facility] | + + + + + | Calculated T Forrest | -142 | degrees | [facility] | + + + + + | Diagnosis | Normal sinus rhythm with | | [facility] | | | sinus arrhythmiaST [...] ONLY, -COMPUTER | | | | | (142), make up editor Collin, | | | | | Rashel Mercado (123) on | | | | | 01/05/2019 3:50:25 AM | | | + + + + + + + + + + | Performing | Address | City/State/Zipcode | Phone Number | | Organization | | | | + + + + + | [facility] | [address] | [place] [address] | | + + + + + Troponin I (01/05/2019 12:51 AM) + + + + + | Component | Value | Ref Range | Performed At | + + + + + | TROPONIN I | 0.076 (H)Comment: 0.04 | 0.00 - 0.04 ng/mL | [facility] | | | ng/mL or [...] performed | | | | | at [facility];[address] [place] [address] | | | | | [facility];[place] [address] | | | + + + + + + + + + + | Performing | Address | City/State/Zipcode | Phone Number | | Organization | | | | + + + + + | [facility] | [address] | [place] [address] | | + + + + + Phosphorus (01/05/2019 12:51 AM) + + + + + | Component | Value | Ref Range | Performed At | + + + + + | PHOSPHORUS | 11.7 (HH)Comment: CALLED | 2.3 - 4.8 mg/dL | [facility] | | | TO LEONILA Hernández RN/BARI AT | | | | | 0304 BY MWREAD BACK | | | | | RESULTS VERIFIEDTesting | | | | | performed at [facility] | | | | | [facility] | | | | | [address] | | | + + + + + + + | Specimen | + + | Blood | + + + + + + + | Performing | Address | City/State/Zipcode | Phone Number | | Organization | | | | + + + + + | [facility] | [address] | [place] [address] | | + + + + + Magnesium (01/05/2019 12:51 AM) + + + + + | Component | Value | Ref Range | Performed At | + + + + + | MAGNESIUM | 2.1Comment: Testing | 1.7 - 2.4 mg/dL | [facility] | | | performed at [facility] | | | | | [facility];[place], [place] | | | | | [address] | | | + + + + + + + | Specimen | + + | Blood | + + + + + + + | Performing | Address | City/State/Zipcode | Phone Number | | Organization | | | | + + + + + | [facility] | [address] | [place] [address] | | + + + + + Comprehensive metabolic panel (01/05/2019 12:51 AM) + + + + + | Component | Value | Ref Range | Performed At | + + + + + | SODIUM | 143 | 135 - 145 mmol/L | [facility] | + + + + + | POTASSIUM | 2.8 (L) | 3.5 - 4.9 mmol/L | [facility] | + + + + [...] 2.7 | 1.3 - 4.9 g/dL | [facility] | + + + + + | A/G | 1.5 | 1.0 - 2.4 | [facility] | + + + + + | TBIL | 0.4 | 0.1 - 1.5 mg/dL | [facility] | + + + + + | ALK PHOS | 74 | 35 - 115 U/L | [facility] | + + + + + | AST | 55 (H) | 10 - 45 U/L | [facility] | + + + + + | ALT | 53 | 10 - 65 U/L | [facility] | + + + + + | EGFR | 3 (L)Comment: GFR <60: | >60 mL/min/1.73m2 | [facility] | | | CHRONIC KIDNEY [...] | | | | | performed [place] [facility] [place] | | | | | [facility];[place], [place] | | | | | [address] | | | + + + + + + + | Specimen | + + | Blood | + + + + + + + | Performing | Address | City/State/Zipcode | Phone Number | | Organization | | | | + + + + + | [facility] | [address] | [facility] [address] | | + + + + + CBC with differential (01/05/2019 12:51 AM) + + + + + | Component | Value | Ref Range | Performed At | + + + + + | WBC | 15.65 (H) | 3.80 - 11.00 K/uL | [facility] | + + + + + | RBC | 4.24 | 3.70 - 5.10 M/uL | [facility] | + + + + + | HGB | 12.7 | 11.3 - 15.5 g/dL | [facility] | + + + + + | HCT | 37.4 | 34.0 - 46.0 % | [facility] | + + + + + | MCV | 88.2 | 80.0 - 100.0 fl | [facility] | + + + + + | MCH | 30.0 | 27.0 - 34.0 pg | [facility] | + + + + + | MCHC | 34.0 | 32.0 - 35.5 g/dL | [facility] | + + + + + | RDW SD | 49.4 | 37 - 53 fl | [facility] | + + + + + | PLT | 337 | 150 - 400 K/uL | [facility] | + + + + + | MPV | 8.7 | fl | [facility] | + + + + + | DIFF TYPE | AUTOMATED | | [facility] | + + + + + [...] | 0.00 - 0.10 K/uL | [facility] | | | performed at [facility] [place] | | | | | [address];[place] | | | | | [address] | | | + + + + + + + | Specimen | + + | Blood | + + + + + + + | Performing | Address | City/State/Zipcode | Phone Number | | Organization | | | | + + + + + | [facility] | [address] | [place] [address] | | + + + + + ED INFORMATION EXCHANGE (01/04/2019 10:36 PM) + + + | Narrative | Performed At | + + + | [id number] Criteria Met Care | ED | | [...] | | | Medical/Surgical 06/10/18 12:00 AM [facility] | | | Patient has not followed up with PCP in regards to ED visits. Last | | | time patient was seen by PCP was 06/10/17. Patient has done | | | multiple no shows to [facility]. Patient has been | | | seen by [facility] infectious disease for follow [...] | (12 mo.) Facility Visits Low Acuity [facility] | | | 5 0 [facility] 5 0 Total 10 0 Note: Visits | | | indicate total known visits. Medicaid Low Acuity Dx are the number of | | | primary diagnoses on the Medicaid's Low Acuity dx list. Recent | | | Emergency Department Visit Summary Date Facility City State Type | | | Diagnoses or Chief Complaint Jan 04, 2019 [facility] | | | [place] Emergency Jan 04, 2019 [facility] [place] [place] | | | Emergency Chief Complaint: DEHYDRATION/CONSTIPATION Dec 31, | | | 2018 [facility] 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 [place] Emergency | | | Peritonitis, unspecified Panic disorder [episodic | | | paroxysmal anxiety] Chronic kidney disease, unspecified | | | Dependence on renal dialysis [facility] [place] Emergency Flank Pain Unspecified abdominal | | | pain Dependence on renal dialysis Patient's | | | noncompliance with other medical treatment and regimen End | | | stage renal disease Noninflammatory disorder of ovary, | | | fallopian tube and broad ligament, unspecified March 16, 2018 [facility] | | | [facility] [place] Emergency abdominal pain | | | Chronic kidney disease, unspecified Hypotension, unspecified | | | Unspecified abdominal pain March 11, 2018 [facility] | | 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 Essential (primary) | | | hypertension Mar 04, 2018 [facility] [place] [place] | | | Emergency Emesis Abdominal Pain Recent | | | Inpatient Visit Summary Date Facility City State Type Diagnoses or | | | Chief Complaint Dec 24, 2018 [facility] | | | Medicine Unspecified abdominal pain End stage renal | | | disease Dependence on renal dialysis Dec 07, 2018 [facility] | | | [facility] Medicine Bandemia | | | Spontaneous bacterial peritonitis End stage renal disease | | | Dependence on renal dialysis Peritonitis, unspecified | | | Infection and inflammatory reaction due to peritoneal dialysis | | | catheter, subsequent encounter Anemia in chronic kidney disease | | | Jun 07, 2018 [facility] Medicine | | | Bacterial peritonitis End stage renal disease | | | Dependence on renal dialysis March 16, 2018 [facility] | | | [facility] General Medicine Chronic kidney disease, | | | unspecified Hypotension, unspecified Unspecified | | | abdominal pain Dependence on renal dialysis End stage | | | renal disease Noninflammatory disorder of ovary, fallopian tube | | | and broad ligament, unspecified Mar 04, 2018 [facility] | | | [facility] [place] [place] Recovery Emesis Abdominal Pain | | | Generalized abdominal pain Dependence on renal dialysis | | | End stage renal disease Nausea with vomiting, unspecified | | | Care Providers Provider PRC Type Phone Fax Service Dates | | | JUAN F WHITLEY MD Family Medicine Jun 08, 2018 - Current | | | [employer] [facility] This patient has registered at the [facility] | | | [facility] Emergency Department For more information visit: | | | [id number] | | | [id number] The above information is provided for the sole purpose of | | | patient treatment. Use of this information beyond the terms of Data | | | Sharing Memorandum of Understanding and License Agreement is | | | prohibited. In certain cases not all visits may be represented. | | | Consult the aforementioned facilities for additional information. | | | 2019 [employer] - [place], [place] - | | | [email or web address] | | + + + + + | Procedure Note | + + | Interface, Lab - 01/04/2019 10:38 PM PST Formatting of this note may be different | | from the original.[id number] Met Care Guidelines 10 in 12 | | 2 in 2Security and SafetyNo recent Security Events currently on fileED Care | | GuidelinesThere are currently no ED Care Guidelines for this patient. Please check your | | facility's medical records system.Care HistoryMedical/Surgical06/10/18 12:00 AM [facility]. | | [facility] Patient has not followed up with PCP in regards to ED visits. Last | | time patient was seen by PCP was 06/10/17. Patient has done multiple no shows to | | [facility]. Patient has been seen by [facility] infectious disease for follow [...] Visit Count (12 mo.)Facility Visits Low Acuity [facility] | [facility] 5 0 [facility] 5 0 Total 10 0 Note: Visits indicate total | | known visits. Medicaid Low Acuity Dx are the number of primary diagnoses on the | | Medicaid's Low Acuity dx list. Recent Emergency Department Visit SummaryDate Facility | | City State Type Diagnoses or Chief Complaint Jan 04, 2019 [facility] [place] [facility] Chief Complaint: | | [facility]DRATION[facility]CONSTIPATION [facility] 31[facility] [place] [place] [facility] Other | | prison (current) drug therapy Anxiety disorder, unspecified Dependence on renal | | dialysis Essential (primary) hypertension Dec 24, 2018 [facility] [place] 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 [place] Emergency Peritonitis, unspecified Panic disorder | | [episodic paroxysmal anxiety] Chronic kidney disease, unspecified Dependence on | | renal dialysis Jun 04, 2018 [facility] [place] Emergency Flank Pain | | Unspecified abdominal pain Dependence on renal dialysis Patient's noncompliance | | with other medical treatment and regimen End stage renal disease Noninflammatory | | disorder of ovary, fallopian tube and broad ligament, unspecified March 16, 2018 [facility] | | Moe Greenberg [place] Emergency abdominal pain Chronic kidney disease, | | unspecified Hypotension, unspecified Unspecified abdominal pain March 11, 2018 [facility] | | 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 Essential (primary) hypertension Mar 04, 2018 | | [facility] Moe Greenberg MS Emergency Emesis Abdominal Pain Recent Inpatient | | Visit SummaryDate Facility [facility] State Type Diagnoses or Chief Complaint Dec 24, 2018 | | [facility] Moe Greenberg [place] General Medicine Unspecified abdominal pain End | | stage renal disease Dependence on renal dialysis Dec 07, 2018 [facility] Moe Gill | | [place] General Medicine Bandemia Spontaneous bacterial peritonitis End stage | | renal disease Dependence on renal dialysis Peritonitis, unspecified Infection | | and inflammatory reaction due to peritoneal dialysis catheter, subsequent encounter | | Anemia in chronic kidney disease Jun 07, 2018 [facility] Moe Greenberg MS General | | Medicine Bacterial peritonitis End stage renal disease Dependence on renal | | dialysis March 16, 2018 [facility] Greenberg [place] General Medicine Chronic kidney | | disease, unspecified Hypotension, unspecified Unspecified abdominal pain | | Dependence on renal dialysis End stage renal disease Noninflammatory disorder of | | ovary, fallopian tube and broad ligament, unspecified Mar 04, 2018 [facility] Moe Gill | | [place] Recovery Emesis Abdominal Pain Generalized abdominal pain | | Dependence on renal dialysis End stage renal disease Nausea with vomiting, | | unspecified Care ProvidersProvider [facility] Type Phone Fax Service Dates JUAN F WHITLEY MD | | Family Medicine Jun 08, 2018 - Current [employer] PortalThis patient has registered | | at the [facility] Emergency Department For more information visit: | | [id number] The above | | information is provided for the sole purpose of patient treatment. Use of this | | information beyond the terms of Data Sharing Memorandum of Understanding and License | | Agreement is prohibited. In certain cases not all visits may be represented. Consult the | | aforementioned facilities for additional information. 2019 [employer] | | [employer] - [place], [place] - [email or web address] | |Jun 07, 2018 [facility] [place] Emergency | | Peritonitis, unspecified | | Panic disorder [episodic paroxysmal anxiety] | | Chronic kidney disease, unspecified | | Dependence on renal dialysis | | | |Jun 04, 2018 [facility] Emergency | | Flank Pain | | Unspecified abdominal pain | | Dependence on renal dialysis | | Patient's noncompliance with other medical treatment and regimen | | End stage renal disease | | Noninflammatory disorder of ovary, fallopian tube and broad ligament, unspecified | | | |March 16, 2018 [facility] Emergency | | abdominal pain | | [...] Dependence on renal dialysis | | 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 | | Essential (primary) hypertension | | | |Mar 04, 2018 [facility] Jairo Greenberg [place] Emergency | | Emesis | | Abdominal Pain | | | | | | | |Recent Inpatient Visit Summary | |Date Facility [facility] State Type Diagnoses or Chief Complaint | |Dec 24, 2018 [facility] General Medicine | | Unspecified abdominal pain | | End stage renal disease | | Dependence on renal dialysis | | | |Dec 07, 2018 [facility] General Medicine | | Bandemia | | Spontaneous bacterial peritonitis | | End stage renal disease | | Dependence on renal dialysis | | Peritonitis, unspecified | | Infection and inflammatory reaction due to peritoneal dialysis catheter, subsequent enco unter | | Anemia in chronic kidney disease | | | |Jun 07, 2018 [facility] General Medicine | | Bacterial peritonitis | | End stage renal disease | | Dependence on renal dialysis | | | |March 16, 2018 [facility] General Medicine | | Chronic kidney disease, unspecified | | Hypotension, unspecified | | Unspecified abdominal pain | | Dependence on renal dialysis | | End stage renal disease | | Noninflammatory disorder of ovary, fallopian tube and broad ligament, unspecified | | | |Mar 04, 2018 [facility] Recovery | | Emesis | [...] 08, 2018 - Current | | | |[employer] | |This patient has registered at the [facility] Emergency Department | |For more information visit: [email or web address] | |The above information is provided for the sole purpose of patient treatment. Use of this in formation beyond the terms of Data Sharing Memorandum of Understanding and License Agreement is prohibited. In | |certain cases not all visits may be represented. Consult the aforementioned facilities for additional information. | |2019 [employer]. - [place], [place] - [email or web address] | + + + +---------+ + + [...] | | | dose on [facility] 01/07/19 at 1700 | | | [...] 11:53 | | | | | Once, [facility] 01/05/19 at 1100, For 1 | | PST | | | | | dose | | | | | | + +-------+ +--------+---+---+ +---+---+ | | | +---+---+ + +-------+ +--------+---+---+ | potassium chloride (K-DUR) CR | Given | 01/08/2019 | 60 mEq | | | | tablet 60 mEq 60 mEq, Oral, | | 13:06 | | | | | Once, [facility] 01/08/19 at 1130, For 1 | [...] | | | | | | Starting [facility] 01/07/19 at 0840, | | | [...]
--- OUTSIDE RECORDS SUMMARY | ~2019-01-31 | XMS | Encounter Summary ---
Demographics + + + | Address | [address] | | | [place] [address] | + + + | Home Phone | | + + + | Preferred Language | Unknown | + + + | Marital Status | | + + + | Cheondoism Affiliation | Unknown | + + + | Race | Unknown | + + + | Ethnic Group | Unknown | + + + Author + + + | Author | [facility] [employer] | + + + | Organization | [facility] | + + + | Address | Unknown | + + + | Phone | Unavailable | + + + Support + + + + + | Name | Relationship | Address | Phone | + + + + + | Lyubov Smalls | [address] | [place] | | | | | [address] | | + + + + + | Lydia Palm | ECON | [place] | | | | | [phone] | | + + + + + | Jose C Oconnor | ECON | [address] | | | | | [place] | | | | | [address] | | + + + + + Care Team Providers + +------+ + | 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
--- OUTSIDE RECORDS SUMMARY | ~2019-01-31 | XMS | Clinical Summary ---
Demographics + + + | Address | [address] | | | [place] [address] | + + + | Home Phone | | + + + | Preferred Language | Unknown | + + + | Marital Status | | + + + | Sabianism Affiliation | Unknown | + + + | Race | Unknown | + + + | Ethnic Group | Unknown | + + + Author + + + | Author | [facility] | + + + | Organization | [facility] | + + + | Address | Unknown | + + + | Phone | Unavailable | + + + Support + + + + + | Name | Relationship | Address | Phone | + + + + + | Lyubov Smalls | MASHA | [place] | | | | | [address] | | + + + + + | Lydia Palm | ECON | [place] | | | | | [address] | | + + + + + | Jose C Oconnor | ECON | [address] | | | | | [place] | | | | | [address] | | + + + + + Care Team Providers + +------+ + | Care Maple Syrup Maker Name | Role | Phone | [...] | | | Activ | | (DRISDOL) [id number] | mouth once a week. | | [...] + + + | Sepsis ([facility]) | 03/16/20 | | | | 18 | 8 | + + + + | Peritonitis ([facility]) | 03/16/20 | | | | [...] | | 2018 | | | | ([facility]); End-stage | | | | | | renal disease on | | | | | | peritoneal dialysis | | | | | | ([facility]) | +--------+ + + + + [...] | | | MRN: | | | [id number] | | | OM: | | | [...] | | ergocalcife | | | rol 09173 | | | units | | | [...] | | | [place], | | | [id number] | | | [place] | | | d | | | [address] | | | n [place] | | | [phone] | | | [phone] 1 | | | weekFadi H | | | Akoum, | | | [id number] | | | [address] | | | [place] | | | [place] | | | [place] | | | [phone] | | | [phone] [phone] | | [...] 2018 | on Only | | | [facility] | | | | [...] | | | MRN: | | | [id number] | | | te of | | [...] | | | Physician: | | | Jsoe C Cleaning, | | | | | [...] | | | nding | | | Issues:Drug Safety Coordinator | | | dorothy | | | abdominal | | | pain, | | | chronic | | | nausea. | | | Discharge | | | Information | | | :Follow | | | up:Juan F | | | [place], | | | [id number] | | | [place] | | | d | | | [address] | | | n [place] | | | [phone] | | | [phone] | | | [...] | | ergocalcife | | | rol [address] | | | units | | | [...] | | | miriam | | | [id number]:5 | | | 2 PM | +---+ [...] dialysis | | | | | | ([facility]); Anemia in | | | | | | ESRD (end-stage | | | | | | renal disease) | | | | | | ([facility]); Peritonitis | | | | | [...] | | | MRN: | | | [id number] | | | te of | | [...] | | | by: | | | Jeffeyr, | | | Santos | | | [...] | | | [place], | | | [id number] | | | [place] | | | d | | | [address] | | | n [place] | | | [phone] | | | [phone] | | | H Akoum, | | | [id number] | | | [address] | | | [place] | | | [place] | | | [place] | | | [phone] | | | [phone] | | | [...] | | ergocalcife | | | rol [address] | | | units | | | [...] | | | miriam | | | [id number]:1 | | | 8 PM | +---+ [...] | | | | | [place] [address] | | | + + + + + + + | Specimen | + + | Blood | + + + + + + + | Performing | Address | City/State/Zipcode | Phone Number | | Organization | | | | + + + + + | [facility] | [address] | [place] [address] | [phone] | | LABORATORY | Any. | | | + + + + + Magnesium (01/09/2019 5:46 AM)Only the most recent of 9 results within the time period is included. + + + + + | Component | Value | Ref Range | Performed At | + + + + + | MAGNESIUM | 2.0Comment: Testing | 1.7 - 2.4 mg/dL | [facility] | | | performed at [facility], [address] | | LABORATORY | | | [address], | | | | | [place] [address] | | | + + + + + + + | Specimen | + + | Blood | + + + + + + + | Performing | Address | City/State/Zipcode | Phone Number | | Organization | | | | + + + + + | [facility] | [address] | [place] [address] | [phone] | | LABORATORY | Blvd. | | [...] performed at [facility], [address] | | | | | [facility], | | | | | [place] [address] | | | + + + + + + + | Specimen | + + | Blood | + + + + + + + | Performing | Address | City/State/Zipcode | Phone Number | | Organization | | | | + + + + + | [facility] | [address] | [place] [address] | [phone] | | LABORATORY | Blvd. | | [...] the | | | | | MDRD IDNE traceable | | | | | equation.Testing | | | | | performed at [facility], [address] | | | | | [facility], | | | | | [place] [address] | | | + + + + + + + | Specimen | + + | Blood | + + + + + + + | Performing | Address | City/State/Zipcode | Phone Number | | Organization | | | | + + + + + | [facility] | [address] | [place] [address] | [phone] | | LABORATORY | Blvd. | | | + + + + + PROCALCITONIN (01/06/2019 5:29 AM) + + + + + | Component | Value | Ref Range | Performed At | + + + + + | PROCALCITONIN | 0.82 (H)Comment: | <0.5 ng/mL | [facility] | | | INTERPRETIVE | [...] performed | | | | | at [facility];[address] [place] [address] | | | | | [facility];[place] [address] | | | + + + + + + + + + + | Performing | Address | City/State/Zipcode | Phone Number | | Organization | | | | + + + + + | [facility] | [address] | [place] [address] | | + + + + + C-reactive protein (01/06/2019 5:29 AM)Only the most recent of 2 results within the time garfield drake is included. + + + + + | Component | Value | Ref Range | Performed At | + + + + + | CRP | 0.3Comment: Testing | <0.5 mg/dL | [facility] | | | performed at [facility], [address] | | LABORATORY | | | [facility], | | | | | [place] [address] | | | + + + + + + + | Specimen | + + | Blood | + + + + + + + | Performing | Address | City/State/Zipcode | Phone Number | | Organization | | | | + + + + + | [facility] | [address] [place] [address] | [place] [address] | [phone] | | LABORATORY | Any. | | [...] | [facility] | | | performed at [facility], [address] | | LABORATORY | | | [address], | | | | | [place] [address] | | | + + + + + + + | Specimen | + + | Blood | + + + + + + + | Performing | Address | City/State/Zipcode | Phone Number | | Organization | | | | + + + + + | [facility] | [address] | [place] [address] | [phone] | | LABORATORY | Blvd. | | [...] 0.04 | 0.00 - 0.04 ng/mL | [facility] | | | ng/mL [...] performed | | | | | at [facility];[address] | | | [address];[place] [address] | | | + + + + + + + | Specimen | + + | Blood | + + + + + + + | Performing | Address | City/State/Zipcode | Phone Number | | Organization | | | | + + + + + | [facility] | [address] | [place] [address] | | + + + + + Protime-INR (01/05/2019 5:42 AM) + + + + + | Component | Value | Ref Range | Performed At | + + + + + | INR | 1.1Comment: REFERENCE | | [facility] | | | RANGE:0.9 [...] [facility] [place];[address] | | | | | [address];[place], [place] | | | | | [address] | | | + + + + + + + | Specimen | + + | Blood | + + + + + + + | Performing | Address | City/State/Zipcode | Phone Number | | Organization | | | | + + + + + | [facility] | [address] | [place] [address] | | + + + + + [...] | 39Comment: Testing | <100 mg/dL | [facility] | | | performed at [facility], [address] | | LABORATORY | | | [address] | | | | | [place] [address] | | | + + + + + + + | Specimen | + + | Blood | + + + + + + + | Performing | Address | City/State/Zipcode | Phone Number | | Organization | | | | + + + + + | [facility] | [address] | [place] [address] | [phone] | | LABORATORY | Blvd. | | [...] + + + + | Calculated P [place] | 27 | degrees | [facility] | + + + + + | Calculated R [place] | 79 | degrees | [facility] | + + + + + | Calculated T [place] | -142 | degrees | [facility] | + + + + + | Diagnosis | Normal sinus rhythm with | | [facility] | | | sinus arrhythmiaST [...] -COMPUTER | | | | | (500), international editorial producer Collin, | | | | | Rashel Mercado (123) on | | | | | 01/05/2019 3:50:25 AM | | | + + + + + + + + + + | Performing | Address | City/State/Zipcode | Phone Number | | Organization | | | | + + + + + | [facility] | [address] | [place] [address] | | + + + + + ED INFORMATION EXCHANGE (01/04/2019 10:36 PM) + + + | Narrative | Performed At | + + + | [id number] Criteria Met Care | ED | | Guidelines in 12 2 in 2 Security and Safety No | INFORMATION | | recent Security Events currently on file ED Care Guidelines There | EXCHANGE | | are currently no ED Care Guidelines for this patient. Please check | | | your facility's medical records system. Care History | | | Medical/Surgical 06/10/18 12:[address] [facility] | | | Patient has not followed up with PCP in regards to ED visits. Last | | | time patient was seen by PCP was 06/10/17. Patient has done | | | multiple no shows to [facility]. Patient has been | | | seen by [facility] infectious disease for follow up by Dr [...] Health System | | | [address] [facility] 5 0 Total 10 0 Note: Visits | | | indicate total known visits. Medicaid Low Acuity Dx are the number of | | | primary diagnoses on the Medicaid's Low Acuity dx list. Recent | | | Emergency Department Visit Summary Date Facility City State Type | | | Diagnoses or Chief Complaint Jan 04, 2019 [facility] Lexi.[place]innie | | | [place] Emergency Jan 04, 2019 [facility]. [place] | | | Emergency Chief Complaint: DEHYDRATION/CONSTIPATION Dec 31, | | | 2018 [facility] [place]. [place] Emergency Other intermediate | | | (current) drug therapy Anxiety disorder, unspecified | | | Dependence on renal dialysis Essential (primary) hypertension | | | Dec 24, 2018 [facility] [place]. 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 [place] Emergency Abdominal Pain | | | Chest Pain Spontaneous bacterial peritonitis | | | Bandemia Dependence on renal dialysis End stage renal | | | disease Jun 07, 2018 [facility] [place]. [place] Emergency | | | Peritonitis, unspecified Panic disorder [episodic | | | paroxysmal anxiety] Chronic kidney disease, unspecified | | | Dependence on renal dialysis Jun 04, 2018 [facility] Lexi.CIris | | | [place] Emergency Flank Pain Unspecified abdominal | | | pain Dependence on renal dialysis Patient's | | | noncompliance with other medical treatment and regimen End | | | stage renal disease Noninflammatory disorder of ovary, | | | fallopian tube and broad ligament, unspecified March 16, 2018 [facility] | | [facility] abdominal pain | | | Chronic kidney disease, unspecified Hypotension, unspecified | | | Unspecified abdominal pain [facility] 11, [facility] | | [place] Emergency Unspecified abdominal pain | | | Peritonitis, unspecified Infection and inflammatory reaction | | | due to other cardiac and vascular devices, implants and grafts, | | | initial encounter Dependence on renal dialysis Other | | | intermediate (current) drug therapy Essential (primary) | | | hypertension Mar 04, 2018 [facility] | | | Emergency Emesis Abdominal Pain Recent | | | Inpatient Visit Summary Date Facility City State Type Diagnoses or | | | Chief Complaint [facility] General | | | Medicine Unspecified abdominal pain End stage renal | | | disease Dependence on renal dialysis Dec 07, 2018 [facility] | | | [facility] General Medicine Bandemia | | | Spontaneous bacterial peritonitis End stage renal disease | | | Dependence on renal dialysis Peritonitis, unspecified | | | Infection and inflammatory reaction due to peritoneal dialysis | | | catheter, subsequent encounter Anemia in chronic kidney disease | | | Jun [facility] General Medicine | | | Bacterial peritonitis End stage renal disease | | | Dependence on renal dialysis March 16, 2018 [facility] | | | [facility] General Medicine Chronic kidney disease, | | | unspecified Hypotension, unspecified Unspecified | | | abdominal pain Dependence on renal dialysis End stage | | | renal disease Noninflammatory disorder of ovary, fallopian tube | | | and broad ligament, unspecified Mar 04, 2018 [facility] | | | [facility] Recovery Emesis Abdominal Pain | | | Generalized abdominal pain Dependence on renal dialysis | | | End stage renal disease Nausea with vomiting, unspecified | | | Care Providers Provider PRC Type Phone Fax Service Dates | | | JUAN F WHITLEY MD Family Medicine Jun 08, 2018 - Current | | | GoingOn This patient has registered at the [facility] | | | [facility] Emergency Department For more information visit: | | | [email or web address] | | | [email or web address] The above information is provided for the sole purpose of | | | patient treatment. Use of this information beyond the terms of Data | | | Sharing Memorandum of Understanding and License Agreement is | | | prohibited. In certain cases not all visits may be represented. | | | Consult the aforementioned facilities for additional information. | | | 2019 [employer] - [place], [place] - | | | [email or web address] | | + + + + + | Procedure Note | + + | Interface, Lab - 01/04/2019 10:38 PM PST Formatting of this note may be different | | from the original.[id number] [id number] Met Care Guidelines 10 in 12 | | 2 in 2Security and SafetyNo recent Security Events currently on fileED Care | | GuidelinesThere are currently no ED Care Guidelines for this patient. Please check your | | facility's medical records system.Care HistoryMedical/Surgical06/10/18 12:00 AM [facility]. | | [facility] Patient has not followed up with PCP in regards to ED visits. Last | | time patient was seen by PCP was 06/10/17. Patient has done multiple no shows to | | [facility] Patient has been seen by [facility] infectious disease for follow | | up [...] Visit Count (12 mo.)Facility Visits Low Acuity [facility] | [facility] [address] [facility] 5 0 Total 10 0 Note: Visits indicate total | | known visits. Medicaid Low Acuity Dx are the number of primary diagnoses on the | | Medicaid's Low Acuity dx list. Recent Emergency Department Visit SummaryDate Facility | | City State Type Diagnoses or Chief Complaint Jan 04, 2019 [facility] [place] | | Emergency Jan 04, 2019 [facility] [place] Emergency Chief Complaint: | | DEHYDRATION/CONSTIPATION Dec 31, 2018 [facility] [place]. 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 [place] Emergency Peritonitis, unspecified Panic disorder | | [episodic paroxysmal anxiety] Chronic kidney disease, unspecified Dependence on | | renal dialysis Jun 04, 2018 [facility] Moe [place] Emergency Flank Pain | | Unspecified abdominal pain Dependence on renal dialysis Patient's noncompliance | | with other medical treatment and regimen End stage renal disease Noninflammatory | | disorder of ovary, fallopian tube and broad ligament, unspecified March 16, 2018 [facility] | | Moe [place] Emergency abdominal pain Chronic kidney disease, | | unspecified Hypotension, unspecified Unspecified abdominal pain March 11, 2018 [facility] | | [facility]. [place] Emergency Unspecified abdominal pain Peritonitis, | | unspecified Infection and inflammatory reaction due to other cardiac and vascular | | devices, implants and grafts, initial encounter Dependence on renal dialysis Other | | intermediate (current) drug therapy Essential (primary) hypertension Mar 04, 2018 | | [facility] [place] Emergency Emesis Abdominal Pain Recent Inpatient | | Visit SummaryDate Facility City State Type Diagnoses or Chief Complaint Dec 24, 2018 | | [facility] Moe [place] General Medicine Unspecified abdominal pain End | | stage renal disease Dependence on renal dialysis Dec 07, 2018 [facility] Jairo | [facility] [place] [facility] Bandemia Spontaneous bacterial peritonitis End stage | | renal disease Dependence on renal dialysis Peritonitis, unspecified Infection | | and inflammatory reaction due to peritoneal dialysis catheter, subsequent encounter | | Anemia in chronic kidney disease Jun 07, 2018 [facility] Jairo [place] General | | Medicine Bacterial peritonitis End stage renal disease Dependence on renal | | dialysis March 16, 2018 [facility] Jairo [place] General Medicine Chronic kidney | | disease, unspecified Hypotension, unspecified Unspecified abdominal pain | | Dependence on renal dialysis End stage renal disease Noninflammatory disorder of | | ovary, fallopian tube and broad ligament, unspecified Mar 04, 2018 [facility] Moe Gill | | [place] Recovery Emesis Abdominal Pain Generalized abdominal pain | | Dependence on renal dialysis End stage renal disease Nausea with vomiting, | | unspecified Care ProvidersProvider PRC Type Phone Fax Service Dates JUAN F WHITLEY MD | | Family Medicine Jun 08, 2018 - Current [employer] PortalThis patient has registered | | at the [facility] Emergency Department For more information visit: | | [email or web address] The above | | information is provided for the sole purpose of patient treatment. Use of this | | information beyond the terms of Data Sharing Memorandum of Understanding and License | | Agreement is prohibited. In certain cases not all visits may be represented. Consult the | | aforementioned facilities for additional information. 2019 [employer] | | [employer] - [place], [place] - [email or web address] | |Jun 07, [address] [facility] [place] Emergency | | Peritonitis, unspecified | | Panic disorder [episodic paroxysmal anxiety] | | Chronic kidney disease, unspecified | | Dependence on renal dialysis | | | |Jun 04, 2018 [facility] Jairo [place] Emergency | | Flank Pain | | Unspecified abdominal pain | | Dependence on renal dialysis | | Patient's noncompliance with other medical treatment and regimen | | End stage renal disease | | Noninflammatory disorder of ovary, fallopian tube and broad ligament, unspecified | | | |March 16, 2018 [facility] Emergency | | abdominal pain | | Chronic kidney disease, unspecified | | Hypotension, unspecified | | Unspecified abdominal pain | | | |March 11, 2018 [facility] 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 | | Essential (primary) hypertension | | | |Mar 04, 2018 [facility] Emergency | | Emesis | | Abdominal Pain | | | | | | | |Recent Inpatient Visit Summary | |Date Facility City State Type Diagnoses or Chief Complaint | |Dec 24, 2018 [facility] General Medicine | | Unspecified abdominal pain | | End stage renal disease | | Dependence on renal dialysis | | | |Dec 07, 2018 [facility] General Medicine | | Bandemia | | Spontaneous bacterial peritonitis | | End stage renal disease | | Dependence on renal dialysis | | Peritonitis, unspecified | | Infection and inflammatory reaction due to peritoneal dialysis catheter, subsequent enco unter | | Anemia in chronic kidney disease | | | |Jun 07, 2018 [facility] General Medicine | | Bacterial peritonitis | | End stage renal disease | | Dependence on renal dialysis | | | |March 16, 2018 [facility] General Medicine | | Chronic kidney disease, unspecified | | Hypotension, unspecified | | Unspecified abdominal pain | | Dependence on renal dialysis | | End stage renal disease | | Noninflammatory disorder of ovary, fallopian tube and broad ligament, unspecified | | | |Mar 04, 2018 [facility] Recovery | | Emesis | | [...] Emergency Department | |For more information visit: [email or web address] | |The above information is provided for the sole purpose of patient treatment. Use of this in formation beyond the terms of Data Sharing Memorandum of Understanding and License Agreement is prohibited. In | |certain cases not all visits may be represented. Consult the aforementioned facilities for additional information. | |2019 [employer] - [place], [place] - [email or web address] | + + + +---------+ + + [...] HYDROcodone-acetaminophen, HYDROmorphone [place] | | | HYDROmorphone, ttegnukvd-qtjhye-stdsinmlww, ondansetron [place] | | | ondansetron, polyethylene [...] | | last 3 completed shifts: In: 53386 [P.O.:250; Other:75883] Out: | | | [id number] [Emesis/NG output:200; Other:06582] Assessment: Ms. Oconnor | | | is [...] | [facility] | | | performed at [facility], [address] | | LABORATORY | | | [address], | | | | | [place] [address] | | | + + + + + + + + + + | Performing | Address | City/State/Zipcode | Phone Number | | Organization | | | | + + + + + | [facility] | [address] [place] [address] | [place] [address] | [phone] | | LABORATORY | [address] | | | + + + + + lilian Bernard (12/27/2018 5:44 AM)Only the most recent of 2 results within the time garfield drake is included. + + + + + | Component | Value | Ref Range | Performed At | + + + + + | VANCOMYCIN,RANDOM | 20.5Comment: Testing | ug/mL | [facility] | | | performed at [facility];[address] | | | | | [address];[place], [place] | | | | | [address] | | | + + + + + + + | Specimen | + + | Blood | + + + + + + + | Performing | Address | City/State/Zipcode | Phone Number | | Organization | | | | + + + + + | [facility] | [address] | [place] [address] | | + + + + + [...] HYDROcodone-acetaminophen, HYDROmorphone OR | | | HYDROmorphone, [id number], ondansetron OR | | | ondansetron, polyethylene [...] + + + + | Calculated P [place] | 3 | degrees | [facility] | + + + + + | Calculated R [place] | 35 | degrees | [facility] | + + + + + | Calculated T [place] | 134 | degrees | [facility] [...] + + + | [facility] | [address] | [facility] [place] [address] | | + + + + + [...] (H) | 0.50 - 1.00 mg/dL | [facility] | + + + + + | CALCIUM | 8.3 (L) | 8.5 - 10.5 mg/dL | [facility] | + + + + + | Albumin | 3.9 | 3.6 - 5.0 g/dL | [facility] | + + + + + | PHOSPHORUS | 8.7 (H) | 2.3 - 4.8 mg/dL | [facility] | + + + + + | EGFR | 3 (L)Comment: GFR <60: | >60 mL/min/1.73m2 | [facility] | | | CHRONIC [...] the | | | | | MDRD [facility] traceable | | | | | equation.Testing | | | | | performed at [facility] | | | | | [facility];[place], [place] | | | | | [address] | | | + + + + + + + | Specimen | + + | Blood | + + + + + + + | Performing | Address | City/State/Zipcode | Phone Number | | Organization | | | | + + + + + | [facility] | [address] | [place] [address] | | + + + + + [...] | + + + + + | [facility] | [address] | [place] [address] | [phone] | | LABORATORY | Blvd. | | [...] + + + + | RBC'S | <99086 | /mm3 | [facility] | + [...] | MONOCYTES/MACROPHAGE | 3 | % | [facility] | | S | | | | + + + + + | CELLS COUNTED | 100Comment: Testing | | [facility] | | | performed at [facility];[address] | | | | | [address];[place] | | | | | [address] | | | + + + + + + + | Specimen | + + | Other - Peritoneal | | [place] | + + + + + + + | Performing | Address | City/State/Zipcode | Phone Number | | Organization | | | | + + + + + | [facility] | [address] | [place] [address] | | + + + + + [...] SPECIAL REQUESTS | LEFT WRIST | | [facility] | + + + [...] | + + + + + | [facility] | [address] | [place] [address] | [phone] | | LABORATORY | Any. | | | + + + + + | [facility] | [address] | [place] [address] | | + + + + + [...] | + + + + + | [facility] | [address] | [place] [address] | [phone] | | LABORATORY | Any. | | | + + + + + | [facility] | [address] | [place] [address] | | + + + + + MRSA by PCR (12/25/2018 1:29 AM)Only the most recent of 2 results within the time period i s included. + + + + + | Component | Value | Ref Range | Performed At | + + + + + | SOURCE | NARES(NOSE) | | [facility] | + + + + + | MRSA PCR | NEGATIVEComment: Testing | NEGATIVE | [facility] | | | performed at [facility];[address] | | | | | [address];[place], [place] | | | | | [address] | | | + + + + + + + | Specimen | + + | Nasopharyngeal - | | Nares(Nose) | + + + + + + + | Performing | Address | City/State/Zipcode | Phone Number | | Organization | | | | + + + + + | [facility] | [address] | [place] [address] | | + + + + + [...] 3 completed | | | shifts: In: 10617 [P.O.:1110; I.V.:2701; Other:67654] Out: 67915 | | | [Emesis/NG output:240; Other:67315] Assessment: Ms. Oconnor is a | | [...] 3 completed | | | shifts: In: 58446 [P.O.:1200; I.V.:2902; Other:30151] Out: 42043 | | | [Other:54457] Assessment: Ms. Oconnor is a 38 y.o. [...] | LABORATORY | | | performed at [facility], [address] | | | | [address], | | | | | [place] [address] | | | | | | | | + + + + + + + | Specimen | + + | Blood | + + + + + + + | Performing | Address | City/State/Zipcode | Phone Number | | Organization | | | | + + + + + | [facility] | [address] | [place] [address] | [phone] | | LABORATORY | [place] | | [...] RAMONA OCONNOR Date of : 1980 | [facility] | | Performing Physician: Imtiaz Mari [...] RV | | | S': 0.11 m/s Gis Specialist: NAVJOT Authenticated by: Imtiaz Mari | | | Report Date/Time: 12-08-2018 17:48:59 | | + + + + + | Procedure Note | + + | Endy, Rad Results In - 12/08/2018 5:49 PM PST Patient Name: Shlomo OCONNOR of | | : 1980Accession: [id number] Physician: Imtiaz Mari | | MD INDICATIONS [...] mlLAESV Index (A-L): 26.00 ml/m2LAAs A2C: 16.18 [id number] | | A-L A2C: 41.14 mlLALs A2C: 5.40 cmLAAs A4C: 18.51 [id number] A-L A4C: 51.64 | | mlLALs A4C: 5.63 cmTAPSE: 1.80 cmAV maxP.66 mmHgAV meanP.54 mmHgAV Vmax: | | 1.38 m/Monica Vmean: 1.00 m/Monica VTI: 26.68 cmAVA Vmax: 2.35 cm2AVA (VTI): 2.52 | | [id number] Vmax: 0.00 cm2/m2AVAI (VTI): 0.00 cm2/m2LVOT maxP.36 [...] |RV S': 0.11 m/s | | | |Gis Specialist: MW | |Authenticated by: Imtiaz Mari MD [...] [facility] | [address] | [place] [address] | | + + + + + [...] | + + + + + | [facility] | [address] | [place] [address] | | + + + + + [...] [facility] | [address] | [place] [address] | | + + + + + [...] (H) | 3.80 - 11.00 K/uL | [facility] | + + + + + | RBC | 4.73 | 3.70 - 5.10 M/uL | [facility] | + + + + + | HGB | 13.6 | 11.3 - 15.5 g/dL | [facility] | + + + + + | HCT | 40.9 | 34.0 - 46.0 % | [facility] | + + + + + | MCV | 86.4 | 80.0 - 100.0 fl | [facility] | + + + + + | MCH | 28.8 | 27.0 - 34.0 pg | [facility] | + + + + + | MCHC | 33.4 | 32.0 - 35.5 g/dL | [facility] | + + + + + | RDW SD | 45.1 | 37 - 53 fl | [facility] | + + + + + | PLT | 484 (H) | 150 - 400 K/uL | [facility] | + + + [...] 9.4 | 8.5 - 10.5 mg/dL | [facility] | + + + + + | TOTAL PROTEIN | 8.7 (H) | 6.3 - 8.2 g/dL | [facility] | + + + + + | Albumin | 4.9 | 3.6 - 5.0 g/dL | [facility] | + + + [...] 146 | 30 - 240 U/L | [facility] | + + + + + | INR | 0.9Comment: REFERENCE | | [facility] | | | RANGE:0.9 [...] 28 | 23 - 32 seconds | [facility] | + + + + + | MMB | 1.7 | 0.5 - 3.6 ng/mL | [facility] | + + + + + | CK-MB Index | 1.2Comment: CK INDEX | | [facility] | | | INTERPRETATION: [...] | performed at [facility] | | | | | [address];[place] | | | | | [address] | | | + + + + + + + + + + | Performing | Address | City/State/Zipcode | Phone Number | | Organization | | | | + + + + + | [facility] | [address] | [facility] [place] [address] | | + + + + + D-dimer, quantitative (12/07/2018 3:30 PM) + + + + + | Component | Value | Ref Range | Performed At | + + + + + | D DIMER, | 0.34Comment: Testing | 0.19 - 0.50 mg/L FEU | [facility] | | QUANTITATIVE | performed at [facility];[address];[place] | | | | | [address] | | | + + + + + + + | Specimen | + + | Blood | + + + + + + + | Performing | Address | City/State/Zipcode | Phone Number | | Organization | | | | + + + + + | [facility] | [address] | [place] [address] | | + + + + + BNP (12/07/2018 3:30 PM) + + + + + | Component | Value | Ref Range | Performed At | + + + + + | BRAIN NATRIURETIC | 50.36Comment: Testing | 0 - 100 pg/mL | [facility] | | PEPTIDE | performed at [facility];[address] | | | | | [address];[place] | | | | | [address] | | | + + + + + + + | Specimen | + + | Blood | + + + + + + + | Performing | Address | City/State/Zipcode | Phone Number | | Organization | | | | + + + + + | [facility] | [address] | [place] [address] | | + + + + + Lipase (12/07/2018 3:30 PM) + + + + + | Component | Value | Ref Range | Performed At | + + + + + | LIPASE | 51Comment: NOTE NEW | 12 - 53 U/L | [facility] | | | REFERENCE RANGETesting | | | | | performed at [facility] | | | | | [address];[place], [place] | | | | | [address] | | | + + + + + + + | Specimen | + + | Blood | + + + + + + + | Performing | Address | City/State/Zipcode | Phone Number | | Organization | | | | + + + + + | [facility] | [address] | [place] [address] | | + + + + + [...] +------+-------+ + | PREMERA | PREMER | [id number] | | | [address] [address] | | | A BLUE | | | | [place], [place] | | | CROSS | | | | [address] | | | FED | | | | | | | PPO | | | | | + +--------+ +------+-------+ + | MEDICARE | MEDICA | [id number] | | | [address] | | | RE | | | | [place] [address] | | | PART A | | | | | | | ONLY | | | | | + +--------+ +------+-------+ + | /[facility] | YELLOW | [id number] | | | | | PLANS | [...] | caesar | | | [phone] | [phone] | + +--------+ +--------+ + +
--- OUTSIDE RECORDS SUMMARY | ~2019-01-31 | XMS | Encounter Summary ---
Demographics + + + | Address | [address] | | | [place] [address] | + + + | Home Phone | | + + + | Preferred Language | Unknown | + + + | Marital Status | | + + + | Pentecostal Affiliation | Unknown | + + + | Race | Unknown | + + + | Ethnic Group | Unknown | + + + Author + + + | Author | [facility] | + + + | Organization | [facility] | + + + | Address | Unknown | + + + | Phone | Unavailable | + + + Support + + + + + | Name | Relationship | Address | Phone | + + + + + | Lyubov Smalls | MASHA | [place] | | | | | [address] | | + + + + + | Lydia Palm | ECON | [place] | | | | | [address] | | + + + + + | Jose C Oconnor | ECON | [address] | | | | | [place] | | | | | [address] | | + + + + + Care Team Providers + +------+ + | Care Radiologic Technology Teacher Name | Role | Phone [...] | | | | ([facility]) | | | | | | | Bandemia | | | | | | | ESRD on | | | | | | | peritoneal | | | | | | | dialysis | | | | | | | ([facility]) | | | +--------+--------+ + + + + Encounter Details +--------+ + + + + | Date | Type | Department | Care Team | Description | +--------+ + + + + | 12/07/ | Hospital | [facility] | Fito Crespo, | Spontaneous | | 2019 - | Encounter | [facility] 8th | MD Ebony PETERS | bacterial | | | | [facility] | EMERGENCY DEPARTMENT | peritonitis (HCC) | | 12/10/ | | [address] | [place] [address] | (Primary Dx); | | 2018 | | [place] [address] | [phone] | Bandemia; ESRD on | | | | [phone] | | peritoneal dialysis | | | | | Ginger Bass | ([facility]); Anemia in | | | | | [place], MD [address] | ESRD (end-stage | | | | | [address] | renal disease) | | | | | [place] [address] | ([facility]); Peritonitis | | | | | [phone] | due to infected | | | | | | peritoneal dialysis | | | | | Hilda Edwards DO | catheter, subsequent | | | | | [address] | encounter ([facility]) | | | | | [place] [address] | | | | | | [phone] | | | | | | | [...] Information: [place]: [place] [address] [place] [id number] Santos Rey MD [facility] Yahir Quinteros [address] [address] Medication List START taking these medications cefdinir [...] Refills: 0 Commonly known as: KlonoPIN ergocalciferol 43053 units capsule Refills: 0 Commonly known as: [...] cannot be sent through Care Everywhere.Cefdinir capsules (American )Metoclopramide tablets (American)Metronidazole tablets or capsules (American)in this encounte r Medications at Time of [...] | | | | | | (DRISDOL) 23030 | mouth once a week. | | [...] note may be different from the original. [facility] Service: Hospitalist Progress Note Hospital Day: [...] may be dif ferent from the original. [facility] Service: Infectious Disease Progress Note Hospital [...] may be diffe rent from the original. [facility] Service: Hospitalist Progress Note Hospital Day: [...] | + +--------+ + + + | [facility] CARD PANEL W/O | STAT | 12/07/2018 [...] 3 completed | | | shifts: In: 86836 [P.O.:1110; I.V.:2701; Other:24906] Out: 93652 | | | [Emesis/NG output:240; Other:42468] Assessment: Ms. Oconnor is a | | [...] 3 completed | | | shifts: In: 39392 [P.O.:1200; I.V.:2902; Other:48352] Out: 87006 | | | [Other:32584] Assessment: Ms. Oconnor is a 38 y.o. [...] the | | | | | MDRD IDNH traceable | | | | | equation.Testing | | | | | performed at [facility], [address] | | | | | [facility], | | | | | [place] [address] | | | + + + + + + + | Specimen | + + | Blood | + + + + + + + | Performing | Address | City/State/Zipcode | Phone Number | | Organization | | | | + + + + + | [facility] | [address] | [place] [address] | [phone] | | LABORATORY | Blvd. | | [...] | LABORATORY | | | performed at [facility], [address] | | | | | [address], | | | | | [place] [address] | | | | | | | | + + + + + + + | Specimen | + + | Blood | + + + + + + + | Performing | Address | City/State/Zipcode | Phone Number | | Organization | | | | + + + + + | [facility] | [address] | [place] [address] | [phone] | | LABORATORY | Blvd. | | [...] RAMONA OCONNOR Date of : 1980 | [facility] | | Performing Physician: Imtiaz [...] RV | | | S': 0.11 m/s Dishing Machine Operator: NAVJOT Authenticated by: Imtiaz Mari | | | Report Date/Time: 12-08-2018 17:48:59 | | + + + + + | Procedure Note | + + | Migue Schumacher In 12/08/2018 5:49 PM PST Patient Name: Shlomo OCONNOR of | | : 1980Accession: [id number] Physician: Imtiaz Mari | | INDICATIONS p [...] mlLAESV Index (A-L): 26.00 ml/m2LAAs A2C: 16.18 xi1CUVUE | | A-L A2C: 41.14 mlLALs A2C: 5.40 cmLAAs A4C: 18.51 hj2IOEUP A-L A4C: 51.64 | | mlLALs A4C: 5.63 cmTAPSE: 1.80 cmAV maxP.66 mmHgAV meanP.54 mmHgAV Vmax: | | 1.38 m/Monica Vmean: 1.00 m/Monica VTI: 26.68 cmAVA Vmax: 2.35 cm2AVA (VTI): 2.52 | | sh1XRBI Vmax: 0.00 cm2/m2AVAI (VTI): 0.00 cm2/m2LVOT maxP.36 [...] |RV S': 0.11 m/s | | | |Dishing Machine Operator: MW | |Authenticated by: Imtiaz Mari [...] | + + + + + | [facility] | [address] | [place] [address] | | + + + + + [...] 0.04 | 0.00 - 0.04 ng/mL | [facility] | | | ng/mL [...] performed | | | | | at [facility];[address] [place] [address] | | | | | Blvd;[place] [address] | | | + + + + + + + | Specimen | + + | Blood | + + + + + + + | Performing | Address | City/State/Zipcode | Phone Number | | Organization | | | | + + + + + | [facility] | [address] | [place] [address] | | + + + + + Phosphorus (12/08/2018 6:03 AM) + + + + + | Component | Value | Ref Range | Performed At | + + + + + | PHOSPHORUS | 6.1 (H)Comment: Testing | 2.3 - 4.8 mg/dL | [facility] | | | performed at [facility], [address] | | LABORATORY | | | [address], | | | | | [place] [address] | | | + + + + + + + | Specimen | + + | Blood | + + + + + + + | Performing | Address | City/State/Zipcode | Phone Number | | Organization | | | | + + + + + | [facility] | [address] | [place] [address] | [phone] | | LABORATORY | Any. | | | + + + + + Magnesium (12/08/2018 6:03 AM) + + + + + | Component | Value | Ref Range | Performed At | + + + + + | MAGNESIUM | 3.1 (H)Comment: Testing | 1.7 - 2.4 mg/dL | [facility] | | | performed at [facility], [address] | | LABORATORY | | | [address], | | | | | [place] [address] | | | + + + + + + + | Specimen | + + | Blood | + + + + + + + | Performing | Address | City/State/Zipcode | Phone Number | | Organization | | | | + + + + + | [facility] | [address] | [place] [address] | [phone] | | LABORATORY | Blvd. | | [...] (H) | 0.50 - 1.00 mg/dL | [facility] | | | | | LABORATORY | + + + + + | BUN/CREAT | 3 | | [facility] | | | | | LABORATORY | + + + + + | CALCIUM | 8.1 (L) | 8.5 - 10.5 mg/dL | [facility] | | | | | LABORATORY | + + + + + | EGFR | 3 (L)Comment: GFR <60: | >60 mL/min/1.73m2 | [facility] | | | CHRONIC KIDNEY DISEASE, | [...] | | | | | performed at [facility], [address] | | | | | [facility], | | | | | [place] [address] | | | + + + + + + + | Specimen | + + | Blood | + + + + + + + | Performing | Address | City/State/Zipcode | Phone Number | | Organization | | | | + + + + + | [facility] | [address] | [place] [address] | [phone] | | LABORATORY | Any. | | [...] | [facility] | | | performed at [facility], [address] | | LABORATORY | | | [address], | | | | | [place] [address] | | | + + + + + + + | Specimen | + + | Blood | + + + + + + + | Performing | Address | City/State/Zipcode | Phone Number | | Organization | | | | + + + + + | [facility] | [address] | [place] [address] | [phone] | | LABORATORY | Blvd. | | | + + + + + MRSA by PCR (12/08/2018 1:18 AM) + + + + + | Component | Value | Ref Range | Performed At | + + + + + | SOURCE | NARES(NOSE) | | [facility] | + + + + + | MRSA PCR | NEGATIVEComment: Testing | NEGATIVE | [facility] | | | performed at [facility];[address] | | [address];[place] | | | | | [address] | | | + + + + + + + | Specimen | + + | Nasopharyngeal - | | Nares(Nose) | + + + + + + + | Performing | Address | City/State/Zipcode | Phone Number | | Organization | | | | + + + + + | [facility] | [address] | [place] [address] | | + + + + + [...] | + + + + + | [facility] | [address] | [place] [address] | [phone] | | LABORATORY | Any. | | | + + + + + | [facility] | [address] | [place] [address] | | + + + + + Troponin I (12/07/2018 11:53 PM) + + + + + | Component | Value | Ref Range | Performed At | + + + + + | TROPONIN I | 0.026Comment: 0.04 | 0.00 - 0.04 ng/mL | [facility] | | | ng/mL [...] performed | | | | | at [facility] [address] | | | | | [address];[place] [address] | | | + + + + + + + | Specimen | + + | Blood | + + + + + + + | Performing | Address | City/State/Zipcode | Phone Number | | Organization | | | | + + + + + | [facility] | [address] | [place] [address] | | + + + + + Body fluid cell count (12/07/2018 8:00 PM) + + + + + | Component | Value | Ref Range | Performed At | + + + + + | FLUID TYPE | PERITONEAL FLUID | | [facility] | + + + [...] | MONOCYTES/MACROPHAGE | 26 | % | [facility] | | S | | | | + + + + + | CELLS COUNTED | 100Comment: Testing | | [facility] | | | performed at [facility];[address] | | | | | [address];[place], [place] | | | | | [address] | | | + + + + + + + | Specimen | + + | Other - Peritoneal | | [facility] | + + + + + + + | Performing | Address | City/State/Zipcode | Phone Number | | Organization | | | | + + + + + | [facility] | [address] | [place] [address] | | + + + + + [...] STAIN | NO ORGANISMS SEEN | | [facility] | + + + [...] [facility] | [address] | [place] [address] | [phone] | | LABORATORY | Blvd. | | | + + + + + | [facility] | [address] | [place] [address] | | + + + + + [...] | + + + + + | [facility] | [address] | [place] [address] | | + + + + + [...] | + + + + + | [facility] | [address] | [place] [address] | | + + + + + [...] + + + + | Calculated P Harvard | 47 | degrees | [facility] | + + + + + | Calculated R [employer] | 114 | degrees | [facility] | + + + + + | Calculated T [employer] | 68 | degrees | [facility] [...] -COMPUTER (500), | | | | | assistant production editor Rashel Polanco | | | | | Rogelio (123) on 12/08/2018 | | | | | 2:29:38 AM | | | + + + + + + + + + + | Performing | Address | City/State/Zipcode | Phone Number | | Organization | | | | + + + + + | [facility] | [address] | [place] [address] | | + + + + + [...] Testing | 2.3 - 4.8 mg/dL | [facility] | | | performed at [facility];[address] | | | | | [address];[place] | | | | | [address] | | | + + + + + + + | Specimen | + + | Blood | + + + + + + + | Performing | Address | City/State/Zipcode | Phone Number | | Organization | | | | + + + + + | [facility] | [address] | [facility] [address] | | + + + + + Magnesium (12/07/2018 3:30 PM) + + + + + | Component | Value | Ref Range | Performed At | + + + + + | MAGNESIUM | 3.2 (H)Comment: Testing | 1.7 - 2.4 mg/dL | [facility] | | | performed at [facility];[address] | | | | | [address];[place] | | | | | [address] | | | + + + + + + + | Specimen | + + | Blood | + + + + + + + | Performing | Address | City/State/Zipcode | Phone Number | | Organization | | | | + + + + + | [facility] | [address] | [place] [address] | | + + + + + BNP (12/07/2018 3:30 PM) + + + + + | Component | Value | Ref Range | Performed At | + + + + + | BRAIN NATRIURETIC | 50.36Comment: Testing | 0 - 100 pg/mL | [facility] | | PEPTIDE | performed at [facility];[address] | | | | | [address];[place] | | | | | [address] | | | + + + + + + + | Specimen | + + | Blood | + + + + + + + | Performing | Address | City/State/Zipcode | Phone Number | | Organization | | | | + + + + + | [facility] | [address] | [place] [address] | | + + + + + D-dimer, quantitative (12/07/2018 3:30 PM) + + + + + | Component | Value | Ref Range | Performed At | + + + + + | D DIMER, | 0.34Comment: Testing | 0.19 - 0.50 mg/L FEU | [facility] | | QUANTITATIVE | performed at [facility];[address] | | | | | [address];[place] | | | | | [address] | | | + + + + + + + | Specimen | + + | Blood | + + + + + + + | Performing | Address | City/State/Zipcode | Phone Number | | Organization | | | | + + + + + | [facility] | [address] | [place] [address] | | + + + + + Lipase (12/07/2018 3:30 PM) + + + + + | Component | Value | Ref Range | Performed At | + + + + + | LIPASE | 51Comment: NOTE NEW | 12 - 53 U/L | [facility] | | | REFERENCE RANGETesting | | | | | performed at [facility];[address] | | | | | [address];[place] | | | | | [address] | | | + + + + + + + | Specimen | + + | Blood | + + + + + + + | Performing | Address | City/State/Zipcode | Phone Number | | Organization | | | | + + + + + | [facility] | [address] | [place] [address] | | + + + + + C-reactive protein (12/07/2018 3:30 PM) + + + + + | Component | Value | Ref Range | Performed At | + + + + + | CRP | 2.5 (H)Comment: Testing | <0.5 mg/dL | [facility] | | | performed at [facility];[address] | | | | | [address];[place] | | | | | [address] | | | + + + + + + + | Specimen | + + | Blood | + + + + + + + | Performing | Address | City/State/Zipcode | Phone Number | | Organization | | | | + + + + + | [facility] | [address] | [place] [address] | | + + + + + Troponin I (12/07/2018 3:30 PM) + + + + + | Component | Value | Ref Range | Performed At | + + + + + | TROPONIN I | 0.026Comment: Testing | 0.00 - 0.04 ng/mL | [facility] | | | performed at [facility];[address] | | | | | [address];[place], [place] | | | | | [id number] ON 12/25 | | | | | [...] + + + + | [facility] | [address] | [place] [address] | | + + + + + [...] 45.1 | 37 - 53 fl | [facility] | + + + + + | PLT | 484 (H) | 150 - 400 K/uL | [facility] | + + + + + | MPV | 8.0 | fl | [facility] | + + + + + | DIFF TYPE | MANUAL | | [facility] | + + + + + | Neutrophils Manual | 78 | % | [facility] | + + + + + [...] | 1.3 | 1.0 - 2.4 | [facility] | + + + + + | TBIL | 0.2 | 0.1 - 1.5 mg/dL | [facility] | + + + + + | ALK PHOS | 126 (H) | 35 - 115 U/L | [facility] | + + + + + | AST | 15 | 10 - 45 U/L | [facility] | + + + + + | ALT | 11 | 10 - 65 U/L | [facility] | + + + + + | EGFR | 3 (L)Comment: GFR <60: | >60 mL/min/1.73m2 | [facility] | | | CHRONIC [...] 146 | 30 - 240 U/L | [facility] | + + + + + | INR | 0.9Comment: REFERENCE | | [facility] | | | RANGE:0.9 [...] 28 | 23 - 32 seconds | [facility] | + + + + + | MMB | 1.7 | 0.5 - 3.6 ng/mL | [facility] | + + + + + | CK-MB Index | 1.2Comment: CK INDEX | | [facility] | | | INTERPRETATION: [...] [facility];[address] | | | | | [address];[place] | | | | | [address] | | | + + + + + + + + + + | Performing | Address | City/State/Zipcode | Phone Number | | Organization | | | | + + + + + | [facility] | [address] | [place] [address] | | + + + + + [...] | | | | | dose on [facility] 12/10/18 at 0900, | | PST | [...]
--- OUTSIDE RECORDS SUMMARY | ~2019-01-31 | XMS | Clinical Summary ---
Demographics + + + | Address | [address] | | | [place] [address] | + + + | Home Phone [...] [place], [place] | | | | | [address] | | + + + + + | Lydia Palm | ECON | [place], [place] | | | | | [address] | | + + + + + Care Team Providers + +------+ + | Care Substance Abuse Therapist Name | Role | Phone | + [...] +--------+ +---------+ | MEDICARE | MEDICA | [id number] | Medica | [phone] | | | RE | | re | [phone] | | | | PART A | | | | | | | AND B | | | | | + +--------+ +--------+ +---------+ | BCBS | BCBS | [id number] | PPO | | | | | [...] | Self | [birth year] | Home: | [address] [place] [address] [address] | | TREVOR | al/Fam | | 1979 | [phone] | [place] | | | caesar | | | [phone] | [phone] | + +--------+ +--------+ + +
--- OUTSIDE RECORDS SUMMARY | 2019-01-31 18:36 | XMS ---
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 Care History Medical/Surgical 06/10/2018 [facility] - Patient has not followed up with PCP in regards to ED visits. Last time patient was seen by PCP was 06/10/17. - Patient has done multiple no shows to [facility]. - Patient has been seen by [facility] infectious disease for follow up by [...] should exercise clinical judgment when providing care. EMauricio VISIT COUNT (12 MO.) [address] [place] [address] VIJAY Graff TOTAL 12 NOTE: Visits indicate total known visits. ED/UCC VISIT TRACKING (12 MO.) 01/31/2019 18:35 [facility] [place] [place] TYPE: Emergency COMPLAINT: - VOMTING 01/28/2019 20:41 [facility] [place] TYPE: Emergency COMPLAINT: - CHEST PAIN 01/05/2019 00:37 [facility] TYPE: Emergency DIAGNOSES: - Diverticulitis of intestine, [...] Emergency COMPLAINT: - RESTLESS,DEHYDRATION DIAGNOSES: - Other assisted (current) drug therapy - Anxiety disorder, unspecified - Dependence on renal dialysis - Essential (primary) hypertension 12/24/2018 15:49 [facility] [place] [place] TYPE: Emergency COMPLAINT: - POSS DEHYDRATION DIAGNOSES: - Hypertensive heart and chronic kidney disease without heart failure, with stage 5 chronic kidney disease, or end stage renal disease - End stage renal disease - Nausea with vomiting, unspecified - Other measurer machine (current) drug therapy - Left upper quadrant pain - Dependence on renal dialysis [facility]2018 [facility] DIAGNOSES: - Spontaneous bacterial peritonitis - Abdominal Pain - Chest Pain - Bandemia - Dependence on renal dialysis - End stage renal disease 06/07/2018 14:25 [facility] [place] [place] TYPE: Emergency COMPLAINT: - ANXIETY DIAGNOSES: - Peritonitis, unspecified - Panic disorder [episodic paroxysmal anxiety] - Chronic kidney disease, unspecified - Dependence on renal dialysis 06[facility]04/2018 23:12 [facility] [place] [facility]: Emergency DIAGNOSES: - Dependence on renal dialysis - Flank Pain - Unspecified abdominal pain - Patient's noncompliance with other medical treatment and regimen - End stage renal disease - Noninflammatory disorder of ovary, fallopian tube and broad ligament, unspecified 03/16/2018 16:20 [facility] [employer] [place] TYPE: Emergency DIAGNOSES: - Chronic kidney disease, unspecified - Hypotension, unspecified - abdominal pain - Unspecified abdominal pain 03/11/2018 13:37 [facility] TYPE: Emergency COMPLAINT: - VOMITING DIAGNOSES: - Unspecified abdominal pain - Peritonitis, unspecified - Infection and inflammatory reaction due to other cardiac and vascular devices, implants and grafts, initial encounter - Dependence on renal dialysis - Other measurer machine (current) drug therapy - Essential (primary) hypertension 03/04/2018 21:20 [facility] [employer] [place] TYPE: Emergency DIAGNOSES: - Emesis - Abdominal Pain INPATIENT VISIT TRACKING (12 MO.) [facility]/05/2019 [facility] [place] [facility] Recovery DIAGNOSES: - Hypokalemia - Dependence on renal dialysis - End stage renal disease - Diverticulitis of intestine, part unspecified, without perforation or abscess without bleeding 12/24/2018 23:21 [facility] [place] TYPE: General Medicine DIAGNOSES: - End stage renal disease - Unspecified abdominal pain - Dependence on renal dialysis - Anemia in chronic kidney disease - Other disorders of phosphorus metabolism - Other disorders of plasma-protein metabolism, not elsewhere classified 12/07/2018 12:34 [facility] DIAGNOSES: - End stage renal disease - Bandemia - Spontaneous bacterial peritonitis - Dependence on renal dialysis - Peritonitis, unspecified - Infection and inflammatory reaction due to peritoneal dialysis catheter, subsequent encounter - Anemia in chronic kidney disease 06/07/2018 22:41 [facility] [place] TYPE: General Medicine DIAGNOSES: - End stage renal disease - Bacterial peritonitis - Dependence on renal dialysis 03/16/2018 16:20 [facility] [employer] [place] TYPE: General Medicine DIAGNOSES: - Chronic kidney disease, unspecified - Hypotension, unspecified - Dependence on renal dialysis - Noninflammatory disorder of ovary, fallopian tube and broad ligament, unspecified - End stage renal disease - Unspecified abdominal pain 03/04/2018 21:20 [facility] [employer] [place] TYPE: Recovery DIAGNOSES: - Dependence on renal dialysis - Generalized abdominal pain - Emesis - Nausea with vomiting, unspecified - Abdominal Pain - End stage renal disease [email or web address]
--- NOTE | 2019-02-01 23:22 | EKG ---
[facility] [address] [facility] [place] [address] Signed Normal sinus rhythm Low voltage QRS Nonspecific T wave abnormality Abnormal ECG When compared with ECG of 28-JAN-2019 20:46, QT has lengthened Confirmed by NICK KINCAID MD ([id number]) on 02/01/2019 11:22:24 PM Electronically Signed By: NICK KINCAID MD 02/01/19 2322 PATIENT NAME: JOHN REEVES Electrocardiogram DATE OF : [birth year] PHYSICIAN: NICK KINCAID MD REPORT #: [id number] REPORT IS CONFIDENTIAL AND NOT TO BE RELEASED WITHOUT AUTHORIZATION
== END 2019-02-01 01:05 | disposition short-term general hospital (02) ==
LOC: ED 18:34
DX: R10.31 Right lower quadrant pain (principal); D72.829 Elevated white blood cell count, unspecified; N19 Unspecified kidney failure; I10 Essential (primary) hypertension; Z99.2 Dependence on renal dialysis; Z79.899 Other long term (current) drug therapy
CPT/HCPCS: 74176; 80053; 83605; 83690; 85025; 93005; 93010; 96365; 96375; 96376; 99285-25; J1170; J2405; J2543; J7030; J7060

== ENCOUNTER 2019-08-22 17:38 | Emergency (ER) | payer BC, OTHER ==
[~2019-08-22] VITALS: Ht 157.5 cm; Wt 96.9 kg
--- OUTSIDE RECORDS SUMMARY | ~2019-08-22 | XMS | Encounter Summary ---
Demographics + + + | Address | [address] | | | [place] [address] | + + + | Home Phone | | + + + | Preferred Language | Unknown | + + + | Marital Status | | + + + | Anabaptist Affiliation | Unknown | + + + | Race | Unknown | + + + | Ethnic Group | Unknown | + + + Author + + + | Author | [employer] [facility] (Historical as of | | | 06-26-19) | + + + | Organization | [facility] (Historical as of | | | 06-26-19) | + + + | Address | Unknown | + + + | Phone | Unavailable | + + + Support + + + + + | Name | Relationship | Address | Phone | + + + + + | Lyubov Smalls | ECON | [place], [place] | | | | | [address] | | + + + + + | Lydia Palm | ECON | [place], [place] | | | | | [address] | | + + + + + | Jose C Oconnor | ECON | [place] | | | | | [place] | | | | | [address] | | + + + + + Care Team Providers + +------+ + | Care Elementary Math Tutor Name | Role | Phone | + +------+ + | Eileen Rick | PCP | | + +------+ + Reason for Visit + + + | Reason | Comments | + + + | Paperwork | Face to Face | + + + Encounter Details +--------+ + + + + | Date | Type | Department | Care Team | Description | +--------+ + + + + | 05/26/ | Telephone | [facility] | Qasim Pederson MD | Paperwork (Face to | | 2019 | | Vascular Surgery | [address] | Face ) | | | | [address] | [place] | | | | | [facility] | [id number] | | | | | [address] | | | | | | [phone] | | | +--------+ + + + + Social History + +-------+ +--------+ + | Tobacco Use | Types | Packs/Day | Years | Date | | | | | Used | | + +-------+ +--------+ + | Former Smoker | | 0.25 | 15 | Quit: 10/10/2015 | + +-------+ +--------+ + + +---+---+---+ | Smokeless Tobacco: | | | | | Never Used | | | | + +---+---+---+ + + +---------+ + | Alcohol Use | Drinks/We | oz/Week | Comments | | | ek | | | + + +---------+ + | Yes | 0 | 0.0 | occ | | | Standard | | | | | drinks or | | | | | | | | | | equivalen | | | | | t | | | + + +---------+ + + + + | Sex Assigned at | Date Recorded | | | | + + + | Female | 03/09/2019 5:50 PM PDT | + + + as of this encounter Plan of Treatment Not on fileas of this encounter Visit Diagnoses Not on filein this encounter"
--- OUTSIDE RECORDS SUMMARY | ~2019-08-22 | XMS | Clinical Summary ---
Demographics + + + | Address | [address] | | | [place] [address] | + + + | Home Phone | | + + + | Preferred Language | Unknown | + + + | Marital Status | | + + + | Denominational Affiliation | Unknown | + + + | Race | Unknown | + + + | Ethnic Group | Unknown | + + + Author + + + | Author | [facility] | | | and [place] | + + + | Organization | [facility] | | | and [place] | + + + | Address | Unknown | + + + | Phone | Unavailable | + + + Support + + + + + | Name | Relationship | Address | Phone | + + + + + | Lyubov Smalls | ECON | [place], [place] | | | | | [address] | | + + + + + | Lydia Palm | ECON | [place], [place] | | | | | [address] | | + + + + + | melinda britton | ECON | [place], [place] | | | "[place]" | | [address] | | + + + + + | Jose C Mejia | ECON | [place] | | | | | [place] | | | | | [address] | | + + + + + Care Team Providers + +------+ + | Care Shingle Inspector Name | Role | Phone | + +------+ + | No, Physician | PCP | Unavailable | + +------+ + Allergies + + + + + + | Active Allergy | Reactions | Severity | Noted | Comments | | | | | Date | | + + + + + + | Adhesive & Tape | Itching | | 07/08/20 | | | | | | 19 | | + + + + + + Medications + + + +---------+------+------+-------+ | Medication | Sig | Dispensed | Refills | Star | End | Statu | | | | | | t | Date | s | | | | | | Date | | | + + + +---------+------+------+-------+ | omeprazole | Take 20 mg by mouth | | 0 | | | Activ | | (PRILOSEC) 20 mg | every morning | | | | | e | | capsule | (before breakfast). | | | | | | + + + +---------+------+------+-------+ | promethazine | Take 25 mg by mouth | | 0 | | | Activ | | (PHENERGAN) 25 mg | every 6 (six) hours | | | | | e | | tablet | as needed for | | | | | | | | Nausea. | | | | | | + + + +---------+------+------+-------+ | sevelamer | Take 1,600-2,400 mg | | 0 | | | Activ | | carbonate (RENVELA) | by mouth See Admin | | | | | e | | 800 mg tablet | Instructions. [...] | meals. | | | | | | + + + +---------+------+------+-------+ | | Take 1 tablet by | 30 | 0 | 08/2 | | Activ | | HYDROcodone-acetamin | mouth every 4 hours | tablet | | 9/20 | | e | | ophen (NORCO) 5-325 | as needed for Pain. | | | 19 | | | | mg per tablet | | | | | | | + + + +---------+------+------+-------+ | | Take 1 tablet by | 6 | 0 | 10/0 | 10/0 | Expir | | HYDROcodone-acetamin | mouth every 6 hours | tablet | | 1/20 | 4/20 | ed | | ophen (NORCO) 5-325 | as needed for Pain | | | 19 | 19 | | | mg per tablet | for up to 3 days. | | | | | | + + + +---------+------+------+-------+ + + +-------+ +------+------+-------+ | Hospital, Clinic, or | Ordered | Route | Frequency | Star | End | Statu | | Other Facility | Dose | | | t | Date | s | | Administered | | | | Date | | | | Medication | | | | | | | + + +-------+ +------+------+-------+ | | 1-2 | PO | EVERY 4 HOURS PRN | 06/11 | | Activ | | HYDROcodone-acetamin | tablet | | | 07/30 | | e | | ophen (NORCO) 5-325 | | | | 19 | | | | mg per tablet 1-2 | | | | | | | | tablet | | | | | | | + + +-------+ +------+------+-------+ Active Problems + + + | Problem | Noted Date | + + + | ESRD on dialysis | 07/06/2019 | + + + + + | Overview: Added automatically from request for surgery | | [id number] | + + + + + | Wound infection after surgery | 07/06/2019 | + + + + + | Overview: Added automatically from request for surgery | | [id number] | + + + + + | Anemia in ESRD (end-stage renal disease) | 06/13/2019 | + + + | Secondary hyperparathyroidism | 06/13/2019 | + + + | Peritonitis associated with peritoneal dialysis | 02/15/2019 | + + + | End-stage renal disease | 02/01/2019 | + + + | Abnormal EKG | 01/05/2019 | + + + | Diverticulitis | 01/05/2019 | + + + | Hyperphosphatemia | 01/05/2019 | + + + | Cold intolerance | 04/03/2018 | + + + + + | Overview: Last Assessment & Plan: Patient presented today for | | evaluation of complex persistent but small right adnexal mass. | | In addition to this problem, she reported that she is chronically | | cold, in fact comes in covered with a blanket. Even outside with | | elevated temperatures, she is cold. She also reports dry skin | | and hair loss as well as weight control issues. Many of these | | issues may be related to her chronic end-stage renal disease, | | although I did find an elevated TSH from 2017 which would suggest | | she is hypothyroid. She reports that she is never been evaluated | | or treated for this problem. Labs were reordered today including | | TSH and free T4. If these are abnormal, I will recommend the | | patient see her primary care physician promptly for initiation of | | therapy. | + + + + + | GERD with esophagitis | 03/17/2018 | + + + | Cyst of right ovary | 09/07/2017 | + + + | Gastroesophageal reflux disease without esophagitis | 01/23/2017 | + + + | Ovarian mass, right | 10/25/2015 | + + + + + | Overview: Last Assessment & Plan: Persistent complex right | | ovarian mass noted on CT. Per current imaging, the mass may be | | slightly larger than previously noted. Most recent ultrasound | | demonstrated a complex mass with multiple cystic components or | | septations and thickening along with vascular pattern around the | | mass, last seen in August. No associated obvious free fluid the | | pelvis that was unexpected for some on peritoneal dialysis. No | | family history of ovarian malignancies. Remarkably enough, CEA | | 125 was only 3.7 despite the fact that she is getting peritoneal | | dialysis. Examination is unremarkable. There are no pelvic | | nodularities induration calor or other concerning changes. The | | presence of long-standing irregular menses, probable | | hypothyroidism, both confer significant risk for ovulatory | | dysfunction and related cysts. Recommend a repeat pelvic | | ultrasound for comparison and in consideration for surgery. | | Patient was advised that a stable complex mass represents a | | relatively smaller risk and with her history of 2 episodes of | | peritonitis from dialysis, surgery presents a relatively greater | | risk. Final determination of risk-benefit ratio will have to wait | | until we see the ultrasound results. | + + Encounters +--------+ + + + + | Date | Type | Specialty | Care Team | Description | +--------+ + + + + | 08/12/ | Telephone | Vascular Surgery | Qasim Pederson MD | Wound | | 2018 | | | | | +--------+ + + + + | 08/11/ | Telephone | Vascular Surgery | Nidhi Whitaker, | Rx/Medication Pick | 2018 | | | RN | Up | +--------+ + + + + | 08/10/ | Emergency | Emergency Medicine | Farhad Lee, | End stage renal | | 2018 | | | ARLYN Alex, | disease on dialysis | | | | | DO Sher | ([facility]) (Primary Dx); | | | | | | Hyperkalemia; | | | | | | Generalized | | | | | | abdominal pain; | | | | | | Ovarian mass | +--------+ + + + + | 08/10/ | Clinical | Vascular Surgery | Nidhi Whitaker, | ESRD on dialysis | | 2018 | Support | | RN | ([facility]) (Primary Dx) | +--------+ + + + + | 07/22/ | Clinical | Vascular Surgery | Nidhi Whitaker, | Surgical wound | | 2018 | Support | | RN | dehiscence, | | | | | | subsequent encounter | | | | | | (Primary Dx) | +--------+ + + + + | 07/22/ | Telephone | Vascular Surgery | Qasim Pederson MD | Other | | 2018 | | | | | +--------+ + + + + | 07/09/ | Telephone | Vascular Surgery | Marixa Mendoza, | Follow-up | | 2018 | | | [employer] | | +--------+ + + + + | 07/08/ | Anesthesia | | Claudia Cobb | | | 2018 | Event | | ANAIS Khan | | +--------+ + + + + | 07/08/ | Surgery | | | LEFT AXILLA WOUND | | 2018 | | | | DEBRIDEMENT, WASHOUT | | | | | | AND POSSIBLE WOUND | | | | | | VAC PLACEMENT | +--------+ + + + + | 07/08/ | Hospital | Internal Medicine | Qasim Pederson MD | ESRD on dialysis | | 2019 | Encounter | | | ([facility]); Wound | | | | | | infection after | | | | | | surgery | +--------+ + + + + | 07/08/ | Preadmit | Pre-Admission | Qasim Pederson MD | | | 2018 | Visit | Testing | | | +--------+ + + + + | 07/06/ | Clinical | Vascular Surgery | Nidhi Whitaker, | ESRD (end stage | | 2018 | Support | | RN | renal disease) on | | | | | | dialysis ([facility]) | | | | | | (Primary Dx) | +--------+ + + + + | 07/06/ | Orders Only | Vascular Surgery | Qasim Pederson MD | ESRD on dialysis | | 2018 | | | | ([facility]) (Primary Dx); | | | | | | Wound infection | | | | | | after surgery | +--------+ + + + + | 07/06/ | Telephone | Vascular Surgery | Nidhi Whitaker, | Appointment | | 2019 | | | RN | | +--------+ + + + + | 06/21/ | Orders Only | Radiology | Kylie Alves DNP | | | 2019 | | | | | +--------+ + + + + | 06/13/ | Orders Only | | Provider, | Infection and | | 2018 | | | MD Xochilt | inflammatory | | | | | | reaction due to | | | | | | peritoneal dialysis | | | | | | catheter, initial | | | | | | encounter (HCC) | +--------+ + + + + | 05/26/ | Hospital | | Qasim Pederson MD | | | 2019 - | Encounter | | | | | | | | | | | 05/27/ | | | | | | 2018 | | | | | +--------+ + + + + from Last 3 Months Immunizations + + + + | Name | Dates Previously Given | Next Due | + + + + | HEP B, 3 DOSE | 12/12/2015, 11/16/2015 | | | (ADULT) | | | + + + + | INFLUENZA TRIV | 10/23/2015 | | | W/PRES(PED/ADOL/ADUL | | | | T),MULTIDOSE | | | + + + + | PNEUMOCOCCAL | 11/07/2015 | | | POLYSACCHARIDE | | | | 23-VALENT (PPSV23) | | | + + + + Family History + + +--------+ + | Medical History | Relation | Name | Comments | + + +--------+ + | Diabetes | Father | | | + + +--------+ + | Cancer | Maternal | | breast ca | | | Grandmoth | | | | | er | | | + + +--------+ + | Breast cancer | Maternal | | | | | Grandmoth | | | | | er | | | + + +--------+ + | Other (see comment) | Mother | Lyubov | Other (see comments) - healthy | + + +--------+ + | Kidney disease | Paternal | | renal falure | | | Grandfath | | | | | er | | | + + +--------+ + | Malig hypertherm | Neg Hx | | | + + +--------+ + + +--------+ + + | Relation | Name | Status | Comments | + +--------+ + + | Father | | | | + +--------+ + + | Father | | | | + +--------+ + + | Maternal Grandmother | | | | + +--------+ + + | Maternal Grandmother | | | | + +--------+ + + | Maternal Grandmother | | | | + +--------+ + + | Mother | Lyubov | Alive | | + +--------+ + + | Mother | Lyubov | | | + +--------+ + + | Paternal Grandfather | | | | + +--------+ + + Social History + +-------+ +--------+------+ [...] + | No | | | Alcoholic Drinks/day: occ | + + +---------+ + [...] recent travel history available. | + + Last Filed Vital Signs + + + + | Vital Sign | Reading | Time Taken | + + + + | Blood Pressure | 128/58 | 08/10/20191551 PDT | + + + + | Pulse | 67 | 08/10/20191551 PDT | + + + + | Temperature | 35.6 C (96 F) | 08/10/20191308 PDT | + + + + | Respiratory Rate | 18 | 08/10/20191551 PDT | + + + + | Oxygen Saturation | 98% | 08/10/20191551 PDT | + + + + | Inhaled Oxygen | - | - | | Concentration | | | + + + + | Weight | 87 kg (191 lb 12.8 | 08/10/2019 1309 PDT | | | oz) | | + + + + | Height | 157.5 cm (5' 2") | 07/08/2019 1028 PDT | + + + + | Body Mass Index | 35.08 | 07/08/20198 PDT | + + + + Plan of Treatment +--------+ + + + + | Date | Type | Specialty | Care Team | Description | +--------+ + + + + | 08/24/ | Clinical | Vascular Surgery | Nidhi Whitaker, | | | 2018 | Support | | RN | | +--------+ + + + + + + + + + | Health Maintenance | Due Date | Last Done | Comments | + + + + + | Vaccine: | | | | | Dtap/Tdap/Td (1 - | 7 | | | | Tdap) | | | | + + + + + | Adult Annual | | | | | Wellness Visit | 5 | | | + + + + + | Vaccine: | | 11/07/2015 | | | Pneumococcal 19-64 | 6 | | | | Highest Risk (2 of 3 | | | | | - PCV13) | | | | + + + + + | Vaccine: Influenza | | 09/06/2016, 10/23/2015, | | | (#1) | 9 | 08/23/2014, Additional history | | | | | exists | | + + + + + | Cervical Cancer | | 04/03/2018 | | | Screening (Pap) | 3 | | | + + + + + Implants + +------+--------+ +--------+--------+--------+ | Implanted | Type | Area | Manufacture | Device | Shelf | Model | | | | | r | | Expira | / | | | | | | Identi | tion | Serial | | | | | | fier | Date | / Lot | + +------+--------+ +--------+--------+--------+ | Graft Vasc Collgn Bov | | Left: | ARTEGRAFT - | | 11/09/ | [id number] | | [id number] - Sn/AImplanted: | | Arm | ARTG | | 2020 | /N/A | | Qty: 1 on 05/06/2019 by Dacia, | | | | | | /[id number] | | Qasim Porras MD | | | | | | 7-041 | + +------+--------+ +--------+--------+--------+ Procedures + +--------+ + + + | Procedure Name | Priori | Date/Time | Associated Diagnosis | Comments | | | ty | | | | + +--------+ + + + | ECG 12 LEAD | STAT | 08/10/2019 | | Results for this | | | | 15:16 PDT | | procedure are in the | | | | | | results section. | + +--------+ + + + | CT ABDOMEN WO | STAT | 08/10/2019 | | Results for this | | CONTRAST | | 14:29 PDT | | procedure are in the | | | | | | results section. | + +--------+ + + + | LIPASE | STAT | 08/10/2019 | | Results for this | | | | 13:40 PDT | | procedure are in the | | | | | | results section. | + +--------+ + + + | COMPREHENSIVE | STAT | 08/10/2019 | | Results for this | | METABOLIC PANEL | | 13:40 PDT | | procedure are in the | | | | | | results section. | + +--------+ + + + | CBC WITH | STAT | 08/10/2019 | | Results for this | | DIFFERENTIAL | | 13:40 PDT | | procedure are in the | | | | | | results section. | + +--------+ + + + | ED INFORMATION | Routin | 08/10/2019 | | | | EXCHANGE | e | 12:55 PDT | | | + +--------+ + + + +---+--------+ | | | | | Proced | | | ure | | | Note - | | | Endy, | | | Lab In | | | | | | Hlseve | | | n - | | | | | | 2018 | | | 1256 | | | PDT | | | Format | | | ting | | | of | | | this | | | note | | | might | | | be | | | differ | | | ent | | | from | | | the | | | origin | | | al.COL | | | LECTIV | | | E?NOTI | | | FICATI | | | ON?/ | | | | | | 9 | | | 12:55? | | | GOATSE | | | N, | | | RAMONA | | | C?MRN: | | | | | | [id number] | | | [id number] | | | riteri | | | a Met | | | 10 in | | | 12 | | | Care | | | Guidel | | | inesSe | | | curity | | | and | | | Safety | | | No | | | recent | | | | | | Securi | | | ty | | | Events | | | | | | curren | | | tly on | | | | | | fileED | | | Care | | | Guidel | | | inesTh | | | ere | | | are | | | curren | | | tly no | | | ED | | | Care | | | Guidel | | | sarabjit | | | for | | | this | | | patien | | | t. | | | Please | | | check | | | your | | | facili | | | ty's | | | medica | | | l | | | record | | | s | | | system | | | .Care | | | Histor | | | yMedic | | | al/Brit | | | [email or web address] | | | /25/19 | | | 12:00 | | | AM | | | [facility] | [facility] | | | [facility] | | | al | | | [facility] | | | RECEIV | | | ED | | | CASE | | | MANAGE | | | MENT | | | CONSUL | | | T- DUE | | | TO ED | | | | | | UTILIZ | | | ATION. | | | [facility] | | | HAS | | | CONTAC | | | T | | | PATIEN | | | T PCP | | | OFFICE | | | AND | | | PATIEN | | | T HAS | | | BEEN | | | FOLLOW | | | ING UP | | | WITH | | | PCP. | | | [facility] | | | DISCUS | | | SED | | | THE ED | | | | | | UTILIZ | | | ATION | | | WITH | | | YELLOW | | | HAWK | | | AND | | | WITH | | | PATIEN | | | T.8/1/ | | | 18 | | | 12:00 | | | AM | | | [facility] | | | y | | | Hospit | | | al | | | Patien | | | t has | | | not | | | follow | | | ed up | | | with | | | PCP in | | | | | | regard | | | s to | | | ED | | | visits | | | . Last | | | time | | | patien | | | t was | | | seen | | | by PCP | | | was | | | 08/01/ | | | 17. | | | Patien | | | t has | | | done | | | multip | | | le no | | | shows | | | to | | | Yellow | | | hawk | | | Mental | | | | | | Health | | | . | | | Patien | | | t has | | | been | | | seen | | | by | | | [facility] | | | | | | infect | | | ious | | | diseas | | | e for | | | follow | | | up by | | | Dr | | | Cathie | | | Ursala | | | s. | | | Patien | | | t | | | nephro | | | logist | | | is Dr | | | | | | Akoum. | | | Care | | | Recomm | | | endati | | | on:Thi | | | s | | | patien | | | t has | | | had 5 | | | or | | | more | | | Emerge | | | ncy | | | Depart | | | ment | | | visits | | | in | | | the | | | last | | | 12 | | | months | | | .? | | | Patien | | | t | | | requir | | | es | | | educat | | | ion on | | | the | | | scope | | | and | | | purpos | | | e of | | | the ED | | | as an | | | acute | | | care | | | provid | | | er not | | | a | | | Primar | | | y Care | | | | | | Provid | | | er and | | | | | | should | | | not | | | be | | | utiliz | | | ed for | | | | | | chroni | | | c | | | condit | | | ions.? | | | These | | | are | | | guidel | | | sarabjit | | | and | | | the | | | provid | | | er | | | should | | | | | | exerci | | | se | | | clinic | | | al | | | judgme | | | nt | | | when | | | provid | | | ing | | | care.P | | | rescri | | | ption | | | Drug | | | Report | | | (12 | | | Mo.)Rx | | | | | | Detail | | | sFill | | | Date | | | Drug | | | Descri | | | ption | | | Qty. | | | Prescr | | | iber | | | CS MED | | | | | | 2019-0 | | | 8-29 | | | HYDROC | | | ODONE- | | | ACETAM | | | IN | | | 5-325 | | | MG 30 | | | JEANNINE | | | | | | MANKE | | | 2 0 Rx | | | | | | [facility] | | | yMetri | | | c | | | Count | | | CS | | | II-V | | | Rx 1 | | | CS-II | | | Rx 1 | | | Quanti | | | ty | | | Dispen | | | sed 30 | | | | | | Unique | | | | | | Prescr | | | ibers | | | 1 | | | Unique | | | | | | Pharma | | | cies 1 | | | | | | Benzos | | | 0 | | | Opioid | | | s 0 | | | Long | | | Acting | | | | | | Opioid | | | s 0 | | | E.D. | | | Visit | | | Count | | | (12 | | | mo.)Fa | | | cility | | | | | | Visits | | | Low | | | Acuity | | | Good | | | [facility] | | | rd | | | Health | | | 1 0 | | | [facility] | | | | | | Region | | | al | | | Medica | | | l | | | Center | | | 6 0 | | | [facility] | | | y | | | Hospit | | | al 5 0 | | | Total | | | 12 0 | | | Note: | | | Visits | | | | | | indica | | | te | | | total | | | known | | | visits | | | . | | | Medica | | | id Low | | | | | | Acuity | | | Dx | | | are | | | the | | | number | | | of | | | primar | | | y | | | diagno | | | ses on | | | the | | | Medica | | | id's | | | Low | | | Acuity | | | dx | | | list. | | | | | | Recent | | | | | | Emerge | | | ncy | | | Depart | | | ment | | | Visit | | | [facility] | | | yShowi | | | ng 10 | | | most | | | recent | | | | | | visits | | | out | | | of 12 | | | in the | | | past | | | 12 | | | months | | | Date | | | Facili | | | ty | | | City | | | State | | | Type | | | Diagno | | | ses or | | | Chief | | | | | | Compla | | | int | | | Oct 1, | | | 2019 | | | [facility] | | | | | | Region | | | al | | | [facility] | | | [place] | | | [place] | | | Emerge | | | ncy | | | Miguel A | | | 28, | | | 2019 | | | Good | | | [facility] | | | rd | | | Health | | | | | | [place] | | | [place] | | | Emerge | | | ncy | | | POST | | | OP INJ | | | | | | Other | | | acute | | | postpr | | | ocedur | | | al | | | pain | | | May | | | 24, | | | 2019 | | | [facility] | | | | | | Region | | | al | | | [facility] | | | [place] | | | [place] | | | Emerge | | | ncy | | | | | | diarrh | | | ea | | | abdomi | | | nal | | | pain | | | | | | nausea | | | | | | Hyperk | | | alemia | | | | | | Elevat | | | ed | | | white | | | blood | | | cell | | | count, | | | | | | unspec | | | ified | | | | | | Nausea | | | with | | | vomiti | | | ng, | | | unspec | | | ified | | | | | | Depend | | | ence | | | on | | | renal | | | dialys | | | is | | | Diarrh | | | ea, | | | unspec | | | ified | | | End | | | stage | | | renal | | | | | | diseas | | | e May | | | 22, | | | 2019 | | | [facility] | | | | | | Region | | | al | | | [facility] | | | [place] | | | [place] | | | Emerge | | | ncy | | | | | | Vascul | | | ar | | | Access | | | | | | Proble | | | m | | | Person | | | with | | | feared | | | | | | health | | | | | | compla | | | int in | | | whom | | | no | | | diagno | | | sis is | | | made | | | | | | Encoun | | | ter | | | for | | | other | | | specif | | | ied | | | surgic | | | al | | | afterc | | | are | | | Mar | | | 24, | | | 2019 | | | [facility] | | | [facility] | | | [place] | | | [place] | | | Emerge | | | ncy | | | | | | Elevat | | | ed | | | white | | | blood | | | cell | | | count, | | | | | | unspec | | | ified | | | | | | Other | | | long | | | term | | | (curre | | | nt) | | | drug | | | therap | | | y | | | Right | | | lower | | | quadra | | | nt | | | pain | | | | | | Nausea | | | with | | | vomiti | | | ng, | | | unspec | | | ified | | | | | | Depend | | | ence | | | on | | | renal | | | dialys | | | is | | | Essent | | | ial | | | (prima | | | ry) | | | hypert | | | ension | | | | | | Unspec | | | ified | | | kidney | | | | | | failur | | | e Mar | | | 24, | | | 2019 | | | [facility] | | | | | | Region | | | al | | | [facility] | | | [place] | | | [place] | | | Emerge | | | ncy | | | Mar | | | 21, | | | 2019 | | | [facility] | | | [facility] | | | [place] | | | [place] | | | Emerge | | | ncy | | | Other | | | long | | | term | | | (curre | | | nt) | | | drug | | | therap | | | y | | | Chest | | | pain, | | | unspec | | | ified | | | | | | Depend | | | ence | | | on | | | renal | | | dialys | | | is | | | Other | | | chest | | | pain | | | | | | Essent | | | ial | | | (prima | | | ry) | | | hypert | | | ension | | | Feb | | | 26, | | | 2019 | | | [facility] | | | | | | Region | | | al | | | [facility] | | | [place] | | | [place] | | | Emerge | | | ncy | | | | | | Abdomi | | | nal | | | Pain | | | | | | Divert | | | iculit | | | is of | | | intest | | | ine, | | | part | | | unspec | | | ified, | | | | | | withou | | | t | | | perfor | | | ation | | | or | | | absces | | | s | | | withou | | | t | | | bleedi | | | ng | | | Depend | | | ence | | | on | | | renal | | | dialys | | | is | | | End | | | stage | | | renal | | | diseas | | | e | | | [place] | | | lemia | | | Feb | | | 25, | | | 2019 | | | [facility] | | | [facility] | | | [place] | | | [place] | | | Emerge | | | ncy | | | | | | Divert | | | iculit | | | is of | | | large | | | intest | | | ine | | | withou | | | t | | | perfor | | | ation | | | or | | | absces | | | s | | | withou | | | t | | | bleedi | | | ng | | | Unspec | | | ified | | | abdomi | | | nal | | | pain | | | | | | Essent | | | ial | | | (prima | | | ry) | | | hypert | | | ension | | | Feb | | | 21, | | | 2019 | | | [facility] | | | [facility] | | | [place] | | | [place] | | | Emerge | | | ncy | | | Other | | | long | | | term | | | (curre | | | nt) | | | drug | | | therap | | | y | | | Anxiet | | | y | | | disord | | | er, | | | unspec | | | ified | | | | | | Depend | | | ence | | | on | | | renal | | | dialys | | | is | | | Essent | | | ial | | | (prima | | | ry) | | | hypert | | | ension | | | | | | Recent | | | | | | Inpati | | | ent | | | Visit | | | [place] | | | yDate | | | Facili | | | ty | | | City | | | State | | | Type | | | Diagno | | | ses or | | | Chief | | | | | | Compla | | | int | | | May | | | 24, | | | 2019 | | | [facility] | | | [facility] | | | [facility] | | [place] | | | [place] | | | Genera | | | l | | | Medici | | | ne | | | Nausea | | | with | | | vomiti | | | ng, | | | unspec | | | ified | | | | | | Depend | | | ence | | | on | | | renal | | | dialys | | | is | | | End | | | stage | | | renal | | | diseas | | | e | | | Elevat | | | ed | | | white | | | blood | | | cell | | | count, | | | | | | unspec | | | ified | | | | | | Hyperk | | | alemia | | | | | | Diarrh | | | ea, | | | unspec | | | ified | | | Mar | | | 25, | | | 2019 | | | [facility] | [facility] | | [facility] | | [place] | | | [place] | | | Genera | | | l | | | Medici | | | ne | | | Leukoc | | | ytosis | | | | | | End | | | stage | | | renal | | | diseas | | | e | | | Other | | | specif | | | ied | | | person | | | al | | | risk | | | factor | | | s, not | | | | | | elsewh | | | ere | | | classi | | | fied | | | | | | Other | | | disord | | | ers of | | | | | | plasma | | | -prote | | | in | | | metabo | | | lism, | | | not | | | elsewh | | | ere | | | classi | | | fied | | | | | | Anemia | | | in | | | chroni | | | c | | | kidney | | | | | | diseas | | | e | | | System | | | ic | | | inflam | | | matory | | | | | | respon | | | se | | | syndro | | | me | | | (SIRS) | | | of | | | non-in | | | fectio | | | us | | | origin | | | | | | withou | | | t | | | acute | | | organ | | | dysfun | | | ction | | | | | | Infect | | | ion | | | and | | | inflam | | | matory | | | | | | reacti | | | on due | | | to | | | perito | | | aquilino | | | dialys | | | is | | | cathet | | | er, | | | initia | | | l | | | encoun | | | ter | | | | | | Noninf | | | lammat | | | ory | | | disord | | | er of | | | ovary, | | | | | | fallop | | | uma | | | tube | | | and | | | broad | | | ligame | | | nt, | | | unspec | | | ified | | | Feb | | | 26, | | | 2019 | | | [facility] | | | [facility] | | [facility] | | | [place] | | | [place] | | | Recove | | | ry | | | [place] | | | lemia | | | | | | Divert | | | iculit | | | is of | | | intest | | | ine, | | | part | | | unspec | | | ified, | | | | | | withou | | | t | | | perfor | | | ation | | | or | | | absces | | | s | | | withou | | | t | | | bleedi | | | ng | | | Depend | | | ence | | | on | | | renal | | | dialys | | | is | | | End | | | stage | | | renal | | | diseas | | | e Feb | | | 14, | | | 2019 | | | [facility] | [facility] | | | [facility] | | [facility] | | | [place] | | | [place] | | | Genera | | | l | | | Medici | | | ne | | | Unspec | | | ified | | | abdomi | | | nal | | | pain | | | End | | | stage | | | renal | | | diseas | | | e | | | Depend | | | ence | | | on | | | renal | | | dialys | | | is | | | Anemia | | | in | | | chroni | | | c | | | kidney | | | | | | diseas | | | e | | | Other | | | disord | | | ers of | | | | | | phosph | | | orus | | | metabo | | | lism | | | | | | Other | | | disord | | | ers of | | | | | | plasma | | | -prote | | | in | | | metabo | | | lism, | | | not | | | elsewh | | | ere | | | classi | | | fied | | | Aquiles | | | 28, | | | 2019 | | | [facility] | | | [facility] | | [facility] | | | [place] | | | [place] | | | Genera | | | l | | | Medici | | | ne | | | Bandem | | | ia | | | Sponta | | | neous | | | bacter | | | ial | | | perito | | | nitis | | | End | | | stage | | | renal | | | | | | diseas | | | e | | | Depend | | | ence | | | on | | | renal | | | dialys | | | is | | | Perito | | | nitis, | | | | | | unspec | | | ified | | | | | | Infect | | | ion | | | and | | | inflam | | | matory | | | | | | reacti | | | on due | | | to | | | perito | | | aquilino | | | dialys | | | is | | | cathet | | | er, | | | subseq | | | uent | | | encoun | | | ter | | | | | | Anemia | | | in | | | chroni | | | c | | | kidney | | | | | | diseas | | | e | | | Care | | | TeamPr | | | ovider | | | | | | Specia | | | lty | | | Phone | | | Fax | | | Servic | | | e | | | Dates | | | BOURRE | | | T, | | | LAY | | | N, PAC | | | | | | Physic | | | uma | | | Assist | | | ant: | | | Surgic | | | al | | | Mar | | | 22, | | | 2019 - | | | | | | Curren | | | t | | | Conne[facility] | | | ions, | | | Denia | | | o | | | [facility] | | | -, | | | [facility] | | | Commun | | | ity | | | Health | | | | | | Worker | | | [phone]) | | | | | | [phone] | | | [phone] | | | Abhinav | | | 31, | | | 2019 - | | | | | | Curren | | | t | | | QUAEMP | | | TS, | | | ANGELITA M, | | | MD | | | Family | | | | | | Medici | | | ne | | | Abhinav | | | 30, | | | 2018 - | | | | | | Curren | | | t | | | DOCTOR | | | MISC | | | Primar | | | y Care | | | | | | Curren | | | t | | | [facility] | | | tive | | | Portal | | | This | | | patien | | | t has | | | regist | | | ered | | | at the | | | | | | [facility] | | | | | [facility] | | | al | | | [facility] | | | l | | | [facility] | | | | | | Emerge | | | ncy | | | Depart | | | ment | | | For | | | more | | | inform | | | ation | | | visit: | | | | | | https: | | | //secu | | | [email or web address] | | | lectiv | | | emedic | | | [email or web address] | | | /notif | | | [email or web address] | | | [id number] | | | [id number] | | | [email or web address] | | | [id number] | | | [id number] | | | 0f | | | PLEASE | | | NOTE: | | | 1. | | | Any | | | care | | | recomm | | | endati | | | ons | | | and | | | other | | | clinic | | | al | | | inform | | | ation | | | are | | | provid | | | ed as | | | guidel | | | sarabjit | | | or for | | | | | | histor | | | ical | | | purpos | | | es | | | only, | | | and | | | provid | | | ers | | | should | | | | | | exerci | | | se | | | their | | | own | | | clinic | | | al | | | judgme | | | nt | | | when | | | provid | | | ing | | | care. | | | 2. | | | You | | | may | | | only | | | use | | | this | | | inform | | | ation | | | for | | | purpos | | | es of | | | treatm | | | ent, | | | paymen | | | t or | | | health | | | care | | | operat | | | ions | | | activi | | | ties, | | | and | | | subjec | | | t to | | | the | | | limita | | | tions | | | of | | | applic | | | able | | | [facility] | | | tive | | | Polici | | | es. | | | 3. | | | You | | | should | | | | | | consul | | | t | | | direct | | | ly | | | with | | | the | | | organi | | | zation | | | that | | | provid | | | ed a | | | care | | | guidel | | | ine or | | | other | | | | | | clinic | | | al | | | histor | | | y with | | | any | | | questi | | | ons | | | about | | | additi | | | onal | | | inform | | | ation | | | or | | | accura | | | cy or | | | comple | | | teness | | | of | | | inform | | | ation | | | provid | | | ed.? | | | 2019 | | | [facility] | | | tive | | | Medica | | | l | | | [employer] | | | logies | | | , Inc[employer] | | | - | | | [email or web address] | | | llecti | | | vemedi | | | [email or web address] | | | m | +---+--------+ + +--------+ + + + | , SERUM, | STAT | 07/08/2019 | | Results for this | | QUAL | | 14:38 PDT | | procedure are in the | | | | | | results section. | + +--------+ + + + | ANE AIRWAY NOTE | Routin | 07/08/2019 | | Results for this | | | e | 12:14 PDT | | procedure are in the | | | | | | results section. | + +--------+ + + + | DEBRIDEMENT WOUND | | 07/08/2019 | ESRD on dialysis | | | | | 11:00 PDT | ([facility]) Wound | | | | | | infection after | | | | [...] itchin | | | g | +---+--------+ + +--------+ +---+ + | , SERUM, | STAT | 07/08/2019 | | Results for this | | QUAL | | 9:59 PDT | | procedure are in the | | | | | | results section. | + +--------+ +---+ + | BASIC METABOLIC | STAT | 07/08/2019 | | Results for this | | PANEL | | 9:45 PDT | | procedure are in the | | | | | | results section. | + +--------+ +---+ + | CBC WITH | STAT | 07/08/2019 | | Results for this | | DIFFERENTIAL | | 9:45 PDT | | procedure are in the | | | | | | results section. | + +--------+ +---+ + | ECG 12 LEAD | Routin | 07/08/2019 | | Results for this | | | e | 9:42 PDT | | procedure are in the | | | | | | results section. | + +--------+ +---+ + | VAS HEMODIALYSIS | Routin | 06/21/2019 | | Results for this | | GRAFT FISTULA | e | 15:55 PDT | | procedure are in the | | | | | | results section. | + +--------+ +---+ + | BASIC METABOLIC | Routin | 05/26/2019 | | Results for this | | PANEL | e | 16:00 PDT | | procedure are in the | | | | | | results section. | + +--------+ +---+ + | , SERUM, | Routin | 05/26/2019 | | Results for this | | QUAL | e | 13:48 PDT | | procedure are in the | | | | | | results section. | + +--------+ +---+ + | BASIC METABOLIC | Routin | 05/26/2019 | | Results for this | | PANEL | e | 13:48 PDT | | procedure are in the | | | | | | results section. | + +--------+ +---+ + from Last 3 Months Results ECG 12 lead (08/10/2019 15:16 PDT)Only the most recent of 2 results within the time period is included. + + + + + + | Component | Value | Ref Range | Performed | Pathologist | | | | | At | Signature | + + + + + + | VENTRICULAR | 67 | BPM | [facility] | | | RATE EKG | | | | | + + + + + + | ATRIAL RATE | 67 | BPM | [facility] | | + + + + + + | P-R | 156 | ms | [facility] | | | INTERVAL | | | | | + + + + + + | QRS | 74 | ms | [facility] | | | DURATION | | | | | + + + + + + | Q-T | 408 | ms | [facility] | | | INTERVAL | | | | | + + + + + + | Q-T | 431 | ms | [facility] | | | INTERVAL | | | | | | (CORRECTED) | | | | | + + + + + + | P WAVE AXIS | 31 | degrees | [facility] | | + + + + + + | QRS AXIS | 140 | degrees | [facility] | | + + + + + + | T AXIS | 76 | degrees | [facility] | | + + + + + + | INTERPRETAT | Normal sinus rhythmLeft | | [facility] | | | ION TEXT | posterior fascicular | | | | | | blockAbnormal ECGWhen | | | | | | compared with ECG of | | | | | | 08-JUL-2019 09:42,QRS | | | | | | axis Shifted | | | | | | rightNonspecific T wave | | | | | | abnormality no longer | | | | | | evident in Inferior | | | | | | leadsNonspecific T wave | | | | | | abnormality no longer | | | | | | evident in Lateral | | | | | | leadsQT has | | | | | | lengthenedThis ECG | | | | | | [...] (500), | | | | | | market editor Rashel Polanco | | | | | | Rogelio ([id number]) on 08/11/2019 | | | | | | 1:54:10 AM | | | | + + + + + + + + | Specimen | + + | | + + + + + | Narrative | Performed At | + + + | | | + + + + +---------+ + + | Performing | Address | City/State/Zipcode | Phone Number | | Organization | | | | + +---------+ + + | [facility] | | | | + +---------+ + + CT Abdomen wo Contrast (08/10/2019 14:29 PDT) + + | Specimen | + + | | + + + + + | Narrative | Performed At | + + + | CT ABDOMEN/PELVIS WITHOUT CONTRAST CLINICAL INFORMATION: | [facility] | | Abdominal pain, peritoneal dialysis removal port placement | | | COMPARISON: US HEMODIALYSIS ACCESS FISTULA OR GRAFT (06/21/2019); US | | | HEMODIALYSIS ACCESS FISTULA OR GRAFT (04/22/2019); CT ABDOMEN PELVIS W | | | CONTRAST (04/02/2019); US UPPER EXTREMITY DIALYSIS MAPPING BILATERAL | | | (2019); IR DIALYSIS TUNNELED CATHETER INSERTION (2019); IR | | | GUIDANCE VASCULAR ACCESS US (2019); US ABDOMEN LIMITED | | | (02/01/2019); US PELVIS WITH ENDOVAGINAL (02/01/2019); PROCEDURE: | | | Axial images through the abdomen. Multiplanar reconstructions. At | | | least one of the following CT dose optimization techniques were used: | | | Automated exposure control; Adjustment of mA and/or kV according to | | | patient size; Use of iterative reconstruction technique. FINDINGS: | | | LUNG BASES: No significant pulmonary abnormality. No pleural | | | effusion or pneumothorax. The tip of a central venous catheter is | | | noted at the superior cavoatrial junction. ABDOMEN Liver and | | | Biliary: Solid organ evaluation suboptimal without contrast. There is | | | cholelithiasis without evidence of acute cholecystitis. Pancreas, | | | Spleen and Adrenals: There is an unchanged fat containing left | | | adrenal lesion. Normal spleen and pancreas morphology, without | | | adjacent stranding or hematoma. Kidneys: The kidneys are atrophic | | | bilaterally. Bowel: There is colonic diverticulosis without evidence | | | of acute diverticulitis. There is no evidence of small bowel | | | inflammation or obstruction. Thin membranes are again noted in the | | | right lower quadrant. Vessels: Abdominal aorta normal in | | | caliber. No aneurysm. Veins not assessed without contrast. | | | Lymph Nodes: No adenopathy. Peritoneum and Retroperitoneum: Complex | | | right adnexal mass measures 6.3 x 4.8 cm (series 2, image 151) | | | previously measuring 5.6 x 4.2 cm on 04/02/2019. There is mild | | | mesenteric fat stranding. BODY WALL Soft Tissues: No bowel or | | | inflamed fat containing hernia, mass or hemorrhage. Bones: No acute | | | fracture or vertebral end plate destruction. No lytic or blastic | | | lesion. IMPRESSION: 1. No radiographically evident acute | | | intra-process. 2. Apparent interval increase in size of right | | | ovarian mass. Further evaluation with contrast enhanced MRI is | | | recommended. 3. Colonic diverticulosis without acute | | | diverticulitis. 4. Cholelithiasis without acute cholecystitis. | | | 5. Mild mesenteric fat stranding and omental septations likely | | | sequela of prior peritoneal dialysis catheter. Signed by: | | | Bianka Glez Matthew Sign Date/Time: 08/10/2019 2:50 PM | | + + + + + | Procedure Note | + + | Endy, Rad Results In - 08/10/2019 1454 PDT | | CT ABDOMEN/PELVIS WITHOUT CONTRAST | | | | CLINICAL INFORMATION: | | Abdominal pain, peritoneal dialysis removal port placement | | | | COMPARISON: | | US HEMODIALYSIS ACCESS FISTULA OR GRAFT (06/21/2019); US HEMODIALYSIS | | ACCESS FISTULA OR GRAFT (04/22/2019); CT ABDOMEN PELVIS W CONTRAST | | (04/02/2019); US UPPER EXTREMITY DIALYSIS MAPPING BILATERAL (2019); | | IR DIALYSIS TUNNELED CATHETER INSERTION (2019); IR GUIDANCE | | VASCULAR ACCESS US (2019); US ABDOMEN LIMITED (02/01/2019); US | | PELVIS WITH ENDOVAGINAL (02/01/2019); | | | | PROCEDURE: | | Axial images through the abdomen. Multiplanar reconstructions. | | | | At least one of the following CT dose optimization techniques were | | used: Automated exposure control; Adjustment of mA and/or kV according | | to patient size; Use of iterative reconstruction technique. | | | | FINDINGS: | | LUNG BASES: No significant pulmonary abnormality. No pleural effusion | | or pneumothorax. The tip of a central venous catheter is noted at the | | superior cavoatrial junction. | | | | ABDOMEN | | Liver and Biliary: Solid organ evaluation suboptimal without contrast. | | There is cholelithiasis without evidence of acute cholecystitis. | | Pancreas, Spleen and Adrenals: There is an unchanged fat containing | | left adrenal lesion. Normal spleen and pancreas morphology, without | | adjacent stranding or hematoma. | | Kidneys: The kidneys are atrophic bilaterally. | | Bowel: There is colonic diverticulosis without evidence of acute | | diverticulitis. There is no evidence of small bowel inflammation or | | obstruction. Thin membranes are again noted in the right lower | | quadrant. | | Vessels: Abdominal aorta normal in caliber. No aneurysm. Veins not | | assessed without contrast. | | Lymph Nodes: No adenopathy. | | Peritoneum and Retroperitoneum: Complex right adnexal mass measures 6.3 | | x 4.8 cm (series 2, image 151) previously measuring 5.6 x 4.2 cm on | | 04/02/2019. There is mild mesenteric fat stranding. | | | | BODY WALL | | Soft Tissues: No bowel or inflamed fat containing hernia, mass or | | hemorrhage. | | Bones: No acute fracture or vertebral end plate destruction. No lytic | | or blastic lesion. | | | | IMPRESSION: | | 1. No radiographically evident acute intra-process. | | | | 2. Apparent interval increase in size of right ovarian mass. Further | | evaluation with contrast enhanced MRI is recommended. | | | | 3. Colonic diverticulosis without acute diverticulitis. | | | | 4. Cholelithiasis without acute cholecystitis. | | | | 5. Mild mesenteric fat stranding and omental septations likely sequela | | of prior peritoneal dialysis catheter. | | | | | | | | Signed by: Bianka Glez Matthew | | Sign Date/Time: 08/10/2019 2:50 PM | + + + +---------+ + + | Performing | Address | City/State/Zipcode | Phone Number | | Organization | | | | + +---------+ + + | [facility] | | | | + +---------+ + + CBC with Differential (08/10/2019 13:40 PDT)Only the most recent of 2 results within the period is included. + + + + + + | Component | Value | Ref Range | Performed | Pathologist | | | | | At | Signature | + + + + + + | WBC | 10.30 | 3.80 - 11.00 | [facility] | | | | | K/uL | LABORATORY | | + + + + + + | RBC | 4.77 | 3.70 - 5.10 | [facility] | | | | | M/uL | LABORATORY | | + + + + + + | Hemoglobin | 13.8 | 11.3 - 15.5 | [facility] | | | | | g/dL | LABORATORY | | + + + + + + | Hematocrit | 42.2 | 34.0 - 46.0 % | [facility] | | | | | | LABORATORY | | + + + + + + | MCV | 88.3 | 80.0 - 100.0 fl | [facility] | | | | | | LABORATORY | | + + + + + + | MCH | 28.9 | 27.0 - 34.0 pg | [facility] | | | | | | LABORATORY | | + + + + + + | MCHC | 32.8 | 32.0 - 35.5 | [facility] | | | | | g/dL | LABORATORY | | + + + + + + | RDW-SD | 49.0 | 37 - 53 fl | [facility] | | | | | | LABORATORY | | + + + + + + | Platelet | 277 | 150 - 400 K/uL | [facility] | | | Count | | | LABORATORY | | + + + + + + | MPV | 8.1 | fl | [facility] | | | | | | LABORATORY | | + + + + + + | Diff Type | AUTOMATED | | [facility] | | | | | | LABORATORY | | + + + + + + | % | 79.26 | % | [facility] | | | Neutrophils | | | LABORATORY | | + + + + + + | % | 12.07 | % | [facility] | | | Lymphocytes | | | LABORATORY | | + + + + + + | Monocyte % | 5.60 | % | [facility] | | | | | | LABORATORY | | + + + + + + | Eosinophils | 2.30 | % | [facility] | | | % | | | LABORATORY | | + + + + + + | Basophils % | 0.77 | % | [facility] | | | | | | LABORATORY | | + + + + + + | Neutrophils | 8.16 (H) | 1.90 - 7.40 | [facility] | | | , Absolute | | K/uL | LABORATORY | | + + + + + + | Absolute | 1.24 | 1.00 - 3.90 | [facility] | | | Lymphocytes | | K/uL | LABORATORY | | + + + + + + | Absolute | 0.58 | 0.00 - 0.80 | [facility] | | | Monocytes | | K/uL | LABORATORY | | + + + + + + | Eosinophils | 0.24 | 0.00 - 0.50 | [facility] | | | , Absolute | | K/uL | LABORATORY | | + + + + + + | Basophils, | 0.08Comment: Testing | 0.00 - 0.10 | [facility] | | | Absolute | performed at [facility];[address] | K/uL | LABORATORY | | | | [address];[place], [place] | | | | | | [address] | | | | + + + + + + + + | Specimen | + + | Blood | + + + + + + + | Performing | Address | City/State/Zipcode | Phone Number | | Organization | | | | + + + + + | [facility] | [address] | [place] [address] | [phone] | + + + + + Lipase (08/10/2019 13:40 PDT) + + + + + + | Component | Value | Ref Range | Performed | Pathologist | | | | | At | Signature | + + + + + + | Lipase | 83 (H)Comment: Testing | 12 - 53 U/L | [facility] | | | | performed at [facility];[address] | LABORATORY | | | | [address];[place] | | | | | | [address] | | | | + + + + + + + + | Specimen | + + | Blood | + + + + + + + | Performing | Address | City/State/Zipcode | Phone Number | | Organization | | | | + + + + + | [facility] | [address] | [place] [address] | [phone] | + + + + + Comprehensive Metabolic Panel (08/10/2019 13:40 PDT) + + + + + + | Component | Value | Ref Range | Performed | Pathologist | | | | | At | Signature | + + + + + + | Na | 139 | 135 - 145 | [facility] | | | | | mmol/L | LABORATORY | | + + + + + + | K | 5.7 (H) | 3.5 - 4.9 | [facility] | | | | | mmol/L | LABORATORY | | + + + + + + | Cl | 102 | 99 - 109 mmol/L | [facility] | | | | | | LABORATORY | | + + + + + + | CO2 | 24 | 23 - 32 mmol/L | [facility] | | | | | | LABORATORY | | + + + + + + | Anion Gap | 19 | 5 - 20 mmol/L | [facility] | | | | | | LABORATORY | | + + + + + + | Glucose | 110 (H) | 65 - 99 mg/dL | [facility] | | | | | | LABORATORY | | + + + + + + | BUN | 35 (H) | 8 - 25 mg/dL | [facility] | | | | | | LABORATORY | | + + + + + + | Creatinine | 9.12 (H) | 0.50 - 1.00 | [facility] | | | | | mg/dL | LABORATORY | | + + + + + + | BUN/Creatin | 4 | | [facility] | | | ine Ratio | | | LABORATORY | | + + + + + + | Calcium | 9.5 | 8.5 - 10.5 | [facility] | | | | | mg/dL | LABORATORY | | + + + + + + | Protein, | 7.8 | 6.3 - 8.2 g/dL | [facility] | | | Total | | | LABORATORY | | + + + + + + | Albumin | 4.6 | 3.6 - 5.0 g/dL | [facility] | | | | | | LABORATORY | | + + + + + + | Globulin | 3.2 | 1.3 - 4.9 g/dL | [facility] | | | | | | LABORATORY | | + + + + + + | A/G Ratio | 1.4 | 1.0 - 2.4 | [facility] | | | | | | LABORATORY | | + + + + + + | BILIRUBIN, | 0.2 | 0.1 - 1.5 mg/dL | [facility] | | | TOTAL | | | LABORATORY | | + + + + + + | ALK PHOS | 82 | 35 - 115 U/L | [facility] | | | | | | LABORATORY | | + + + + + + | AST | 13 | 10 - 45 U/L | [facility] | | | | | | LABORATORY | | + + + + + + | ALT | <7 (L) | 10 - 65 U/L | [facility] | | | | | | LABORATORY | | + + + + + + | Estimated | 5 (L)Comment: GFR <60: | >60 | [facility] | | | GFR | CHRONIC KIDNEY DISEASE, | mL/min/1.73m2 | LABORATORY | | | | IF FOUND OVER A 3 MONTH | | | | | | PERIOD.GFR <15: KIDNEY | | | | | | FAILURE.FOR | | | | | | AMERICANS, MULTIPLY THE | | | | | | CALCULATED GFR BY | | | | | | 1.210.This eGFR is | | | | | | calculated using the | | | | | | [facility] traceable | | | | | | equation.Testing | | | | | | performed at [facility];[address] | | | | | | [facility];[place], [place] | | | | | | [address] | | | | + + + + + + + + | Specimen | + + | Blood | + + + + + + + | Performing | Address | City/State/Zipcode | Phone Number | | Organization | | | | + + + + + | [facility] | [address] | [place] [address] | [phone] | + + + + + , Serum, Qual (07/08/2019 14:38 PDT)Only the most recent of 3 results within the period is included. + + + + + + | Component | Value | Ref Range | Performed | Pathologist | | | | | At | Signature | + + + + + + | Preg, Serum | NEGATIVEComment: Testing | NEG | [facility] | | | | performed at [facility];[address] | | LABORATORY | | | | [address];[place] | | | | | | [address] | | | | + + + + + + + + | Specimen | + + | Blood | + + + + + + + | Performing | Address | City/State/Zipcode | Phone Number | | Organization | | | | + + + + + | [facility] | [address] | [place] [address] | [phone] | + + + + + Anesthesia Airway Note (07/08/2019 12:14 PDT) + + + | Narrative | Performed At | + + + | Claudia Cobb CRNA 07/08/2019 12:15 Anesthesia Airway | | | Placement 07/08/2019 11:54 Preprocedure check: patient identified, | | | suction, oxygen, airway equipment checked, airway assessed and | | | patient reassessment prior to induction Mask ventilation: N/A | | | Attempts: 1 Airway type: laryngeal mask Size: 4 Cuffed: cuffed | | | Route, reference point: center of mouth Trauma: none Tube placement | | | verification: bilateral chest rise, equal bilateral breath sounds | | | and carbon dioxide detection Performing provider: Claudia Cobb, | | | ANAIS Please see intraoperative grid for any additional | | | medication documentation. | | + + + + + | Procedure Note | + + | Claudia Cobb CRNA - 07/08/2019 1214 PDT Anesthesia Airway Placement07/08/2019 | | 11:54Preprocedure check: patient identified, suction, oxygen, airway equipment checked, | | airway assessed and patient reassessment prior to inductionMask ventilation: | | N/AAttempts: 1Airway type: laryngeal maskSize: 4Cuffed: cuffedRoute, reference point: | | center of mouthTrauma: noneTube placement verification: bilateral chest rise, equal | | bilateral breath sounds and carbon dioxide detectionPerforming provider: Claudia Khan | | ANAIS CobbPlease see intraoperative grid for any additional medication | | documentation. | |Cuffed: cuffed | |Route, reference point: center of mouth | |Trauma: none | |Tube placement verification: bilateral chest rise, equal bilateral breath sounds and carbon dioxide detection | |Performing provider: Claudia Cobb CRNA | | | | | | | |Please see intraoperative grid for any additional medication documentation. | + + Basic Metabolic Panel (07/08/2019 9:45 PDT)Only the most recent of 3 results within the ti me period is included. + + + + + + | Component | Value | Ref Range | Performed | Pathologist | | | | | At | Signature | + + + + + + | Na | 136 | 135 - 145 | [facility] | | | | | mmol/L | LABORATORY | | + + + + + + | K | 4.9 | 3.5 - 4.9 | [facility] | | | | | mmol/L | LABORATORY | | + + + + + + | Cl | 97 (L) | 99 - 109 mmol/L | [facility] | | | | | | LABORATORY | | + + + + + + | CO2 | 28 | 23 - 32 mmol/L | [facility] | | | | | | LABORATORY | | + + + + + + | Anion Gap | 16 | 5 - 20 mmol/L | [facility] | | | | | | LABORATORY | | + + + + + + | Glucose | 80 | 65 - 99 mg/dL | [facility] | | | | | | LABORATORY | | + + + + + + | BUN | 27 (H) | 8 - 25 mg/dL | [facility] | | | | | | LABORATORY | | + + + + + + | Creatinine | 7.65 (H) | 0.50 - 1.00 | [facility] | | | | | mg/dL | LABORATORY | | + + + + + + | BUN/Creatin | 4 | | [facility] | | | ine Ratio | | | LABORATORY | | + + + + + + | Calcium | 9.2 | 8.5 - 10.5 | [facility] | | | | | mg/dL | LABORATORY | | + + + + + + | Estimated | 6 (L)Comment: GFR <60: | >60 | [facility] | | | GFR | CHRONIC KIDNEY DISEASE, | mL/min/1.73m2 | LABORATORY | | | | IF FOUND OVER A 3 MONTH | | | | | | PERIOD.GFR <15: KIDNEY | | | | | | FAILURE.FOR | | | | | | AMERICANS, MULTIPLY THE | | | | | | CALCULATED GFR BY | | | | | | 1.210.This eGFR is | | | | | | calculated using the | | | | | | MDRD IDFL traceable | | | | | | equation.Testing | | | | | | performed at [facility];[address] | | | | | | [facility];[place], [place] | | | | | | [id number] | | | | + + + + + + + + | Specimen | + + | Blood | + + + + + + + | Performing | Address | City/State/Zipcode | Phone Number | | Organization | | | | + + + + + | [facility] | [address] | [place] [address] | [phone] | + + + + + VAS Hemodialysis Graft Fistula (06/21/2019 15:55 PDT) + + | Specimen | + + | | + + + + + | Impressions | Performed At | + + + | Patent axillary artery to axillary vein loop graph. Flow volumes | | | ranges from 263-914 mL/minute. Elevated velocities at the arterial | | | and vein anastomosis. Signed by: Daphney Dumont Chet Sign Date/Time: | | | 06/22/2019 12:08 PM | | + + + + + + | Narrative | Performed At | + + + | [facility] HEMODIALYSIS ACCESS DUPLEX-COMPLICATIONS CLINICAL INFORMATION: | | | Left axillary artery to axillary vein loop graft COMPARISON: US | | | HEMODIALYSIS ACCESS FISTULA OR GRAFT (04/22/2019); CT NEEDLE BIOPSY | | | KIDNEY (10/26/2015); US KIDNEYS AND BLADDER (10/25/2015); PROCEDURE: | | | Grayscale, color Doppler and Doppler with duplex imaging with | | | attention to the left upper extremity. FINDINGS: Axillary artery | | | inflow: PSV: 142 cm/sec. Volume flow: 397 cc/min. Diameter: 5.3 mm. | | | Anastomosis: Volume flow: 635 cc/min Diameter: 4.2 mm. Afferent loop: | | | 70 cm/sec. Volume flow: 914 cc/min: Diameter: 7.6 mm. [place] loop: | | | PSV: 52 cm/sec. Volume flow: 236 cc/min: Diameter: 6 9.6 mm. | | | Efferent loop: PSV: 71 cm/sec. Volume flow: 740 cc/min: Diameter: | | | 9.1 mm. Vein outflow: 68 cm/s | | + + + + + | Procedure Note | + + | Migue Schumacher Conversion - 07/16/2019 0941 PDT UV HEMODIALYSIS ACCESS DUPLEX-COMPLICATIONS | | CLINICAL INFORMATION: | | Left axillary artery to axillary vein loop graft | | COMPARISON: | | US HEMODIALYSIS ACCESS FISTULA OR GRAFT (04/22/2019); CT NEEDLE BIOPSY | | KIDNEY (10/26/2015); US KIDNEYS AND BLADDER (10/25/2015); | | PROCEDURE: | | Grayscale, color Doppler and Doppler with duplex imaging with attention | | to the left upper extremity. | | FINDINGS: | | Axillary artery inflow: PSV: 142 cm/sec. Volume flow: 397 cc/min. | | Diameter: 5.3 mm. | | Anastomosis: Volume flow: 635 cc/min Diameter: 4.2 mm. | | Afferent loop: 70 cm/sec. Volume flow: 914 cc/min: Diameter: 7.6 mm. | | [place] loop: PSV: 52 cm/sec. Volume flow: 236 cc/min: Diameter: 6 9.6 mm. | | Efferent loop: PSV: 71 cm/sec. Volume flow: 740 cc/min: Diameter: 9.1 | | mm. | | Vein outflow: 68 cm/s | | IMPRESSION: | | Patent axillary artery to axillary vein loop graph. | | Flow volumes ranges from 263-914 mL/minute. | | Elevated velocities at the arterial and vein anastomosis. | | Signed by: Daphney Dumont Chet | | Sign Date/Time: 06/22/2019 12:08 PM | + + from Last 3 Months Insurance + +--------+ +--------+ +---------+--------+ | Payer | Benefi | Subscriber | Effect | Phone | Address | Type | | | t Plan | ID | elizabeth | | | | | | / | | Dates | | | | | | Group | | | | | | + +--------+ +--------+ +---------+--------+ | MEDICARE | MEDICA | [id number] | Effect | [phone] | | Medica | | | RE | | elizabeth | 5 | | re | | | PART A | | for | | | | | | | | all | | | | | | | | dates | | | | + +--------+ +--------+ +---------+--------+ | BCBS | BCBS | [id number] | 11/10/19 | | | PPO | | | [place] | | 16-Pre | | | | | | L FEP | | sent | | | | + +--------+ +--------+ +---------+--------+ | MEDICARE | MEDICA | [id number] | | [phone] | | Medica | | | RE | | 015-Pr | 5 | | re | | | PART A | | esent | | | | + +--------+ +--------+ +---------+--------+ | BCBS | BCBS | [id number] | 11/10/19 | | | PPO | | | [employer] | | 16-Pre | | | | | | L FEP | | sent | | | | + +--------+ +--------+ +---------+--------+ + +--------+ +--------+ + + | Guarantor Name | Accoun | Relation to | Date | Phone | Billing Address | | | t Type | Patient | of | | | | | | | | | | + +--------+ +--------+ + + | Ramona Oconnor | Person | Self [birth year] | [address] | | Lien | al/Fam | | 1979 | [phone] | [place], [place] | | | caesar | | | 9 (Home) | [phone] | + +--------+ +--------+ + + | Ramona Oconnor | Person | Self [birth year] | [address] | | Lien | al/Fam | | 1979 | [phone] | [place], [place] | | | caesar | | | 9 (Home) | [phone] | + +--------+ +--------+ + + Advance Directives Patient has advance care planning documents, and code status on file. For more information, please contact:[facility] [place] [address] + + + + + | Code Status | Date | Date | Comments | | | Activated | Inactivated | | + + + + + | Full Code | 07/08/2019 | 07/08/2019 | | | | 14:29 | 17:52 | | + + + + +
--- OUTSIDE RECORDS SUMMARY | ~2019-08-22 | XMS | Encounter Summary ---
Demographics + + + | Address | [address] | | | [place] [address] | + + + | Home Phone | | + + + | Preferred Language | Unknown | + + + | Marital Status | | + + + | Confucianist Affiliation | Unknown | + + + | Race | Unknown | + + + | Ethnic Group | Unknown | + + + Author + + + | Author | [facility] | | | and [place] | + + + | Organization | [facility] | | | and [place] | + + + | Address | Unknown | + + + | Phone | Unavailable | + + + Support + + + + + | Name | Relationship | Address | Phone | + + + + + | Lyubov Smalls | ECON | [place], [place] | | | | | [address] | | + + + + + | Lydia Palm | ECON | [place], [place] | | | | | [address] | | + + + + + | melinda britton | ECON | [place], [place] | | | "[place]" | | [phone] | | + + + + + | Jose C Mejia | ECON | [place] | | | | | [place] | | | | | [address] | | + + + + + Care Team Providers + +------+ + | Care Field Technical Specialist Name | Role | Phone | + +------+ + | Eileen Rick | PCP | | + +------+ + Encounter Details +--------+ + + + + | Date | Type | Department | Care Team | Description | +--------+ + + + + | 07/06/ | Orders Only | [facility] | Qasim Pederson MD | ESRD on dialysis | | 2019 | | VASCULAR SURGERY | [address] | ([facility]) (Primary Dx); | | | | [address] | [facility] [place] | Wound infection | | | | [facility] | [address] | after surgery | | | | [address] | | | | | | [phone] | | | +--------+ + + + [...] as of this encounter Plan of Treatment +--------+ + + + + | Date | Type | Specialty | Care Team | Description | +--------+ + + + + | 08/24/ | Clinical | Vascular Surgery | Nidhi Whitaker, | | | 2019 | Support | | RN | | +--------+ + + + + documented as of this encounter Visit Diagnoses + + | Diagnosis | + + | ESRD on dialysis (HCC) - Primary End stage renal disease | + + | Wound infection after surgery Other postoperative infection | + + documented in this encounter
--- OUTSIDE RECORDS SUMMARY | ~2019-08-22 | XMS | Encounter Summary ---
Demographics + + + | Address | [address] | | | [place] [address] | + + + | Home Phone | | + + + | Preferred Language | Unknown | + + + | Marital Status | | + + + | Holiness Affiliation | Unknown | + + + | Race | Unknown | + + + | Ethnic Group | Unknown | + + + Author + + + | Author | [facility] (Historical as of | | | 06-26-19) | + + + | Organization | [facility] (Historical as of | | | 06-26-19) | + + + | Address | Unknown | + + + | Phone | Unavailable | + + + Support + + + + + | Name | Relationship | Address | Phone | + + + + + | Lyubov Smalls | ECON | [place], [place] | | | | | [address] | | + + + + + | Lydia Palm | ECON | [place], [place] | | | | | [address] | | + + + + + | Jose C Oconnor | ECON | [address] [place] | | | | | [place] | | | | | [address] | | + + + + + Care Team Providers + +------+ + | Care Insurance Follow Up Specialist Name | Role | Phone | [...] | | | | | | | ESRD, | | | | | | | SURGICAL | | | | | | | WOUND | | | | | | | DEHISCENCE | | | | | | | Procedures | | | | | | | WOUND VAC - | | | | | | | PLACEMENT - | | | | | | | REPLACEMENT | | | +--------+--------+ + + + + Encounter Details +--------+---------+ + + + | Date | Type | Department | Care Team | Description | +--------+---------+ + + + | 05/26/ | Surgery | [facility] | Qasim Pederson MD | WOUND VAC - | | 2019 | | [facility] | [address] | PLACEMENT - | | | | Operating Room [address] | [place], [place] | REPLACEMENT | | | | [address] | [address] | | | | | [place] [address] | | | | | | [phone] | | | +--------+---------+ + + + [...] + + + | Blood Pressure | 106/62 | 05/27/2019 8:02 AM PDT | + + + + | Pulse | 68 | 05/27/2019 8:02 AM PDT | + + + + | Temperature | 36.5 C (97.7 F) | 05/27/2019 8:02 AM PDT | + + + + | Respiratory Rate | 19 | 05/27/2019 8:02 AM PDT | + + + + | Oxygen Saturation | 95% | 05/27/2019 8:02 AM PDT | + + + + | Inhaled Oxygen | - | - | | Concentration | | | + + + + | Weight | 82.3 kg (181 lb 7 | 05/26/2019 1:10 PM PDT | | | oz) | | + + + + | Height | 157.5 cm (5' 2") | 05/26/2019 1:10 PM PDT | + + + + | Body Mass Index | 33.19 | 05/26/2019 1:10 PM PDT | + + + + in this encounter Discharge Instructions Karen Charlton, MICHELLE - 05/26/2019Formatting of this note may be different from the origi nal. GOING HOME AFTER A REGIONAL NERVE BLOCK Vacuum-Assisted Closure of a Wound Vacuum-assisted closure [...] chamber of the vacuum Date Last Reviewed: 12/11/201619996332-4327 [employer]. [address] [place] [id number]. All [facility] ts reserved. This information is not intended [...] turning blue, or fainting Call 911. Acetaminophen; Oxycodone tablets Brand Names: Endocet, Nalocet, Percocet, Primlev, Roxicet What is this medicine? ACETAMINOPHEN; OXYCODONE (a set a EMIL krupa fen; ox i KOE done) is a pain reliever. It is use d to treat moderate to severe pain. How should I use this medicine? Take this medicine by mouth with a full glass of water. Follow the directions on the prescr iption label. You can take it with or without food. If it upsets your stomach, take it with food. Take your medicine at regular intervals. Do not take it more often than directed. A special MedGuide will be given to you by the pharmacist with each prescription and refill . Be sure to read this information carefully each time. Talk to your geoscientist regarding the use of this medicine in children. Special care may be needed. What side effects may I notice from receiving this medicine? Side effects that you should report to your doctor or health rehab care assistant as soon as p ossible: allergic reactions like skin rash, itching or hives, swelling of the face, lips, or tong ue breathing problems confusion redness, blistering, peeling or loosening of the skin, including inside the mouth signs and symptoms of liver injury like dark yellow or brown urine; general ill feeling or flu-like symptoms; light-colored stools; loss of appetite; nausea; right upper belly pain ; unusually weak or tired; yellowing of the eyes or skin signs and symptoms of low blood pressure like dizziness; feeling faint or lightheaded, f alls; unusually weak or tired trouble passing urine or change in the amount of urine Side effects that usually do not require medical attention (report to your doctor or health rehab care assistant if they continue or are bothersome): constipation dry mouth nausea, vomiting tiredness What may interact with this medicine? This medicine may interact with the following medications: alcohol antihistamines for allergy, cough and cold antiviral medicines for HIV or AIDS atropine certain antibiotics like clarithromycin, erythromycin, linezolid, rifampin certain medicines for anxiety or sleep certain medicines for bladder problems like oxybutynin, tolterodine certain medicines for depression like amitriptyline, fluoxetine, sertraline certain medicines for fungal infections like ketoconazole, itraconazole, voriconazole certain medicines for migraine headache like almotriptan, eletriptan, frovatriptan, aashish triptan, rizatriptan, sumatriptan, zolmitriptan certain medicines for nausea or vomiting like dolasetron, ondansetron, palonosetron certain medicines for Parkinson's disease like benztropine, trihexyphenidyl certain medicines for seizures like phenobarbital, phenytoin, primidone certain medicines for stomach problems like dicyclomine, hyoscyamine certain medicines for travel sickness like scopolamine diuretics general anesthetics like halothane, isoflurane, methoxyflurane, propofol ipratropium local anesthetics like lidocaine, pramoxine, tetracaine MAOIs like Carbex, Eldepryl, Marplan, Nardil, and Parnate medicines that relax muscles for surgery methylene blue nilotinib other medicines with acetaminophen other narcotic medicines for pain or cough phenothiazines like chlorpromazine, mesoridazine, prochlorperazine, thioridazine What if I miss a dose? If [...] to an official disposal site. Contact the [facility] at [phone] or your the [facility] to find a site. If you [...] an unusual or allergic reaction to acetaminophen, oxycodone, other opioid analgesics, ot her medicines, foods, dyes, or preservatives or trying to get breast-feeding What should I watch for while using this medicine? Tell your doctor or health rehab care assistant if your pain does not go away, if it gets wors e, or if you have new or a different type of pain. You may develop tolerance to the medicine . Tolerance means that you will need a higher dose of the medication for pain relief. Tolera nce is normal and is expected if you take this medicine for a long time. Do not [...] contain acetaminophen with this medicine. Always read ppai schumacher carefully. If you have questions, ask [...] days, call your doctor or health care professi onal. Your mouth may get dry. Chewing sugarless gum or sucking hard candy, and drinking plenty or water may help. Contact your doctor if the problem does not go away or is severe. NOTE:This sheet is a summary. It may not cover all possible information. If you have questi ons about this medicine, talk to your doctor, pharmacist, or health care provider. Copyright 2019 [employer] Discharge Instructions: Caring for Your Hemovac Drainage Tube You have been discharged with a Hemovac drainage tube. The tube was placed in your incision to remove fluid andis attached to a drain or collection device. It willhelp healing and reducethe risk ofinfection.Expect tosee fluid and blood in the drain. You may also feel some burning and pulling from the stitch that holds the tube in place. Your drain will be removed when the fluid leaking from it is less than 2 tablespoons each day. There is a b andage at the site where the tube is placed. This is to protect the open area from infection . Your stitches will be taken out 7 to 14 days after surgery. Here's what you need to do to care for your Hemovac drainage tube. General guidelines Don t sleep on the same side as the tube. Secure the tube and bag inside your clothing. This will prevent the tube from being pull ed out. Take a sponge bath to avoid getting your bandage and tube site wet, unless your healthca provider tells you otherwise. Ask your provider when can you take a shower or bathe. Ask your provider about the best way to keep the site dry when bathing or showering. Empty the drain Empty your drain at least twice a day. Empty it more often if needed. Wash your hands. If someone is helping you, have that person wear clean, non-sterile mary ves after washing their hands. Lift the stopper. Don't touch the open port. The drain will expand. Turn the drain upside down. Drain the fluid into a measuring cup. Record the amount of fluid each time you empty the drain. Total the amount daily. Share this information with your doctor on your next visit. Place the empty drain on a hard surface and press down until it is flat. Close the cork stopper device. Wash your hands again. Change the dressing Change the dressing around the tube every day. Wash your hands. Remove the old bandage. Wash your hands again. Wet a cotton swab and clean around the incision and tube site. Use normal saline solutio n (salt and water). Put a new bandage on the incision and tube site. Make the bandage large enough to cover the whole incision area. Tape the bandage in place. Wash your hands again. Follow-up Make a follow-up appointment, or as directed. When to call your doctor Call your doctor right away if you have any of the following: Pain, swelling, or fluid around the tube Redness or warmth around the incision or fluid draining from the incision Nausea and vomiting Fever above 100.4 F (38 C)or chills, or as advised An incision that does not heal; stitches that become infected or loose A tube that falls out A foul smell from the incision site Drainage that changes from light pink to dark red An increase in the amount of drainage after an initial decrease Date Last Reviewed: 02/08/201819998314-0393 [employer]. [address] [place] [address]. All righ ts reserved. This information is not intended as a substitute for professional medical care. Always follow your healthcare professional's instructions. Acetaminophen; Oxycodone tablets Brand Names: Endocet, Nalocet, Percocet, Primlev, Roxicet What is this medicine? ACETAMINOPHEN; OXYCODONE (a set a EMIL krupa fen; ox i KOE done) is a pain reliever. It is use d to treat moderate to severe pain. How should I use this medicine? Take this medicine by mouth with a full glass of water. Follow the directions on the prescr iption label. You can take it with or without food. If it upsets your stomach, take it with food. Take your medicine at regular intervals. Do not take it more often than directed. A special MedGuide will be given to you by the pharmacist with each prescription and refill . Be sure to read this information carefully each time. Talk to your geoscientist regarding the use of this medicine in children. Special care may be needed. What side effects may I notice from receiving this medicine? Side effects that you should report to your doctor or health rehab care assistant as soon as p ossible: allergic reactions like skin rash, itching or hives, swelling of the face, lips, or tongue breathing problems confusion redness, blistering, peeling or loosening of the skin, including inside the mouth signs and symptoms of liver injury like dark yellow or brown urine; general ill feeling or flu-like symptoms; light-colored stools; loss of appetite; nausea; right upper belly pain; u nusually weak or tired; yellowing of the eyes or skin signs and symptoms of low blood pressure like dizziness; feeling faint or lightheaded, fall s; unusually weak or tired trouble passing urine or change in the amount of urine Side effects that usually do not require medical attention (report to your doctor or health rehab care assistant if they continue or are bothersome): constipation dry mouth nausea, vomiting tiredness What may interact with this medicine? This medicine may interact with the following medications: alcohol antihistamines for allergy, cough and cold antiviral medicines for HIV or AIDS atropine certain antibiotics like clarithromycin, erythromycin, linezolid, rifampin certain medicines for anxiety or sleep certain medicines for bladder problems like oxybutynin, tolterodine certain medicines for depression like amitriptyline, fluoxetine, sertraline certain medicines for fungal infections like ketoconazole, itraconazole, voriconazole certain medicines for migraine headache like almotriptan, eletriptan, frovatriptan, naratri ptan, rizatriptan, sumatriptan, zolmitriptan certain medicines for nausea or vomiting like dolasetron, ondansetron, palonosetron certain medicines for Parkinson's disease like benztropine, trihexyphenidyl certain medicines for seizures like phenobarbital, phenytoin, primidone certain medicines for stomach problems like dicyclomine, hyoscyamine certain medicines for travel sickness like scopolamine diuretics general anesthetics like halothane, isoflurane, methoxyflurane, propofol ipratropium local anesthetics like lidocaine, pramoxine, tetracaine MAOIs like Carbex, Eldepryl, Marplan, Nardil, and Parnate medicines that relax muscles for surgery methylene blue nilotinib other medicines with acetaminophen other narcotic medicines for pain or cough phenothiazines like chlorpromazine, mesoridazine, prochlorperazine, thioridazine What if I miss a dose? If [...] to an official disposal site. Contact the [facility] at [phone] or your the [facility] to find a site. If you [...] an unusual or allergic reaction to acetaminophen, oxycodone, other opioid analgesics, other medicines, foods, dyes, or preservatives or trying to get breast-feeding What should I watch for while using this medicine? Tell your doctor or health rehab care assistant if your pain does not go away, if it gets wors e, or if you have new or a different type of pain. You may develop tolerance to the medicine . Tolerance means that you will need a higher dose of the medication for pain relief. Tolera nce is normal and is expected if you take this medicine for a long time. Do not [...] days, call your doctor or health care professi jr. Your mouth may get dry. Chewing sugarless gum or sucking hard candy, and drinking plenty or water may help. Contact your doctor if the problem does not go away or is severe. NOTE:This sheet is a summary. It may not cover all possible information. If you have questi ons about this medicine, talk to your doctor, pharmacist, or health care provider. Copyright 2019 [employer] in this encounter Medications at Time of [...] tablet by | 30 | 0 | // | | | oxyCODONE-acetaminop | mouth every 4 (four) | tablet | | 19 | | | hen (PERCOCET) 5-325 | hours as needed. | | [...] +--------+---------+ + + | sevelamer | Take 1,600-2,400 mg | | | | | | (RENVELA) 800 MG | by mouth See Admin | | | | | | tablet | Instructions. Take | | | [...] +--------+---------+ + + as of this encounter Plan of Treatment Not on fileas of this encounter Procedures + +--------+ + + + | Procedure Name | Priori | Date/Time | Associated Diagnosis | Comments | | | ty | | | | + +--------+ + + + | BASIC METABOLIC | STAT | 05/26/2019 | | Results for this | | PANEL | | 4:00 PM | | procedure are in the | | | | PDT | | results section. | + +--------+ + + + | HCG, SERUM, | STAT | 05/26/2019 | | Results for this | | QUALITATIVE | | 1:48 PM | | procedure are in the | | | | PDT | | results section. | + +--------+ + + + | BASIC METABOLIC | STAT | 05/26/2019 | | Results for this | | PANEL | | 1:48 PM | | procedure are in the | | | | PDT | | results section. | + +--------+ + + + | WOUND VAC - | | 05/26/2019 | ESRD, SURGICAL | | | PLACEMENT - | | 1:01 PM | WOUND DEHISCENCE | | | REPLACEMENT | | PDT | | | + +--------+ + + + +---+--------+ | | | | | Specia | | | l | | | Needs | | | 2 hrs | | | per | | | Georgette | +---+--------+ in this encounter Results Basic metabolic panel (05/26/2019 4:00 PM) + + + + + | Component | Value | Ref Range | Performed At | + + + + + | SODIUM | 136 | 135 - 145 mmol/L | [facility] | + + + + + | POTASSIUM | 5.8 (H) | 3.5 - 4.9 mmol/L | [facility] | + + + + + | CHLORIDE | 100 | 99 - 109 mmol/L | [facility] | + + + + + | CO2 | 26 | 23 - 32 mmol/L | [facility] | + + + + + | ANION GAP AGAP | 16 | 5 - 20 mmol/L | [facility] | + + + + + | GLUCOSE | 71 | 65 - 99 mg/dL | [facility] | + + + + + | BUN | 33 (H) | 8 - 25 mg/dL | [facility] | + + + + + | CREATININE | 9.91 (H) | 0.50 - 1.00 mg/dL | [facility] | + + + + + | BUN/CREAT | 3 | | [facility] | + + + + + | CALCIUM | 8.7 | 8.5 - 10.5 mg/dL | [facility] | + + + + + | EGFR | 4 (L)Comment: GFR <60: | >60 mL/min/1.73m2 | [facility] | | | CHRONIC KIDNEY DISEASE, [...] | | | | | performed at [facility];[address] | | | | | [facility];[place], [place] | | | | | [address] | | | + + + + + + + | Specimen | + + | Blood | + + + + + + + | Performing | Address | City/State/Zipcode | Phone Number | | Organization | | | | + + + + + | [facility] | [address] | [place] [address] | | + + + + + test, serum (05/26/2019 1:48 PM) + + + + + | Component | Value | Ref Range | Performed At | + + + + + | TEST,SERUM | NEGATIVEComment: Testing | NEGATIVE | [facility] | | | performed at [facility];[address] | | [address];[place] | | | | | [address] | | | + + + + + + + | Specimen | + + | Blood | + + + + + + + | Performing | Address | City/State/Zipcode | Phone Number | | Organization | | | | + + + + + | [facility] | [address] | [place] [address] | | + + + + + Basic metabolic panel (05/26/2019 1:48 PM) + + + + + | Component | Value | Ref Range | Performed At | + + + + + | SODIUM | 138 | 135 - 145 mmol/L | [facility] | + + + + + | POTASSIUM | 5.5 (H) | 3.5 - 4.9 mmol/L | [facility] | + + + + + | CHLORIDE | 101 | 99 - 109 mmol/L | [facility] | + + + + + | CO2 | 26 | 23 - 32 mmol/L | [facility] | + + + + + | ANION GAP AGAP | 17 | 5 - 20 mmol/L | [facility] | + + + + + | GLUCOSE | 84 | 65 - 99 mg/dL | [facility] | + + + + + | BUN | 39 (H) | 8 - 25 mg/dL | [facility] | + + + + + | CREATININE | 9.88 (H) | 0.50 - 1.00 mg/dL | [facility] | + + + + + | BUN/CREAT | 4 | | [facility] | + + + + + | CALCIUM | 8.9 | 8.5 - 10.5 mg/dL | [facility] | + + + + + | EGFR | 4 (L)Comment: GFR <60: | >60 mL/min/1.73m2 | [facility] | | | CHRONIC KIDNEY DISEASE, [...] | | | | | performed at [facility];[address] | | | | | [facility];[place], [place] | | | | | [address] | | | + + + + + + + | Specimen | + + | Blood | + + + + + + + | Performing | Address | City/State/Zipcode | Phone Number | | Organization | | | | + + + + + | [facility] | [address] | [place] [address] | | + + + + + in this encounter Visit Diagnoses Not on filein this encounter Admitting Diagnoses + + | Diagnosis | + + | ESRD, SURGICAL WOUND DEHISCENCE | + + Administered Medications + +--------+---------+------+------+------+ | Medication Order | MAR | Action | Dose | Rate | Site | | | Action | Date | | | | + +--------+---------+------+------+------+ + +---+ | acetaminophen (TYLENOL) | | | suppository 650 mg 650 mg, | | | Rectal, Every 6 Hours PRN, Mild | | | Pain (1-3), Fever, Starting Wed | | | 05/26/19 at 1714 | | + +---+ | | | + +---+ | acetaminophen (TYLENOL) tablet | | | 650 mg 650 mg, Oral, Every 6 | | | Hours PRN, Mild Pain (1-3), | | | Fever, Starting Fri05/26/19 at | | | 1714 | | + +---+ | | | + +---+ + +-------+ +---------+---+---+ | bacitracin injection PRN, | Given | | 50,000 | | | | Starting Fri05/26/19 at 1407, | | 9 15:07 | Units | | | | Intra-op | | PDT | | | | + +-------+ +---------+---+---+ +---+---+ | | | +---+---+ + +-------+ +--------+---+---+ | bupivacaine (PF) (HARIAINE) 0.5 | Given | | 20 mLs | | | | % 30 mL in lidocaine 1 % 20 mL | | 9 15:07 | | | | | OR medication mixture PRN, | | PDT | | | | | Starting Fri05/26/19 at 1507, | | | | | | | Intra-op | | | | | | + +-------+ +--------+---+---+ +---+---+ | | | +---+---+ + +-------+ +------+---+---+ | HYDROmorphone (DILAUDID) | Given | | 1 mg | | | | injection 1 mg 1 mg, | | 9 20:36 | | | | | Intravenous, Every 3 Hours PRN, | | PDT | | | | | Severe Pain (7-10), Starting Wed | | | | | | | 05/26/19 at 1936 | | | | | | + +-------+ +------+---+---+ +-------+ +------+---+---+ | Given | | 1 mg | | | | | 9 00:14 | | | | | | PDT | | | | +-------+ +------+---+---+ +---+---+ | | | +---+---+ + +-------+ +------+---+---+ | ondansetron (ZOFRAN) injection | Given | | 4 mg | | | | 4 mg 4 mg, Intravenous, Every 6 | | 9 01:54 | | | | | Hours PRN, Nausea, Vomiting, | | PDT | | | | | Starting 05/26/19 at 1714 | | | | | | + +-------+ +------+---+---+ +-------+ +------+---+---+ | Given | | 4 mg | | | | | 9 07:51 | | | | | | PDT | | | | +-------+ +------+---+---+ +---+---+ | | | +---+---+ + +-------+ +------+---+---+ | ondansetron (ZOFRAN) injection | Given | | 4 mg | | | | 4 mg 4 mg, Intravenous, Once, | | 9 17:24 | | | | | 05/26/19 at 1730, For 1 dose, | | PDT | | | | | PACU | | | | | | + +-------+ +------+---+---+ + +---+ | | | + +---+ | ondansetron (ZOFRAN-ODT) | | | disintegrating tablet 4 mg 4 mg, | | | Oral, Every 6 Hours PRN, Nausea, | | | Vomiting, Starting Fri05/26/19 | | | at 1714 | | + +---+ | | | + +---+ | oxyCODONE-acetaminophen | | | (PERCOCET) 5-325 MG per tablet 1 | | | tablet 1 tablet, Oral, Every 4 | | | Hours PRN, Moderate Pain (4-6), | | | Starting Fri05/26/19 at 1623 | | + +---+ | | | + +---+ + +-------+ +---------+---+---+ | oxyCODONE-acetaminophen | Given | | 2 | | | | (PERCOCET) 5-325 MG per tablet 2 | | 9 23:00 | tablets | | | | tablet 2 tablet, Oral, Every 4 | | PDT | | | | | Hours PRN, Severe Pain (7-10), | | | | | | | Starting 05/26/19 at 1623 | | | | | | + +-------+ +---------+---+---+ +-------+ +---------+---+---+ | Given | | 2 | | | | | 9 05:06 | tablets | | | | | PDT | | | | +-------+ +---------+---+---+ | Given | | 2 | | | | | 9 11:13 | tablets | | | | | PDT | | | | +-------+ +---------+---+---+ +---+---+ | | | +---+---+ + +-------+ +-------+---+---+ | pantoprazole (PROTONIX) EC | Given | | 40 mg | | | | tablet 40 mg 40 mg, Oral, Every | | 9 05:47 | | | | | Morning Before Breakfast, First | | PDT | | | | | dose on [facility] 05/27/19 at 0630 | | | | | | + +-------+ +-------+---+---+ + +---+ | | | + +---+ | promethazine (PHENERGAN) IVPB | | | 6.25 mg 6.25 mg, Intravenous, | | | Administer over 15 Minutes, Every | | | 6 Hours PRN, Nausea, Vomiting, | | | Starting Fri05/26/19 at 1936, | | | When ordered with ondansetron, | | | use promethazine as second | | | treatment choice. | | + +---+ | | | + +---+ + +-------+ + +---+---+ | sevelamer (RENVELA) tablet | Given | | 1,600 mg | | | | 1,600 mg 1,600 mg, Oral, Daily | | 9 07:47 | | | | | With Breakfast, First dose on Nina | | PDT | | | | | 05/27/19 at 0800 | | | | | | + +-------+ + +---+---+ +---+---+ | | | +---+---+ + +-------+ + +---+---+ | sevelamer (RENVELA) tablet | Given | | 1,600 mg | | | | 1,600 mg 1,600 mg, Oral, Daily | | 9 11:13 | | | | | With Lunch, First dose on Nina | | PDT | | | | | 05/27/19 at 1200 | | | | | | + +-------+ + +---+---+ +---+---+ | | | +---+---+ + +-------+ + +---+---+ | sevelamer (RENVELA) tablet | Given | | 2,400 mg | | | | 2,400 mg 2,400 mg, Oral, Daily | | 9 21:05 | | | | | With Dinner, First dose on Fri | | PDT | | | | | 05/26/19 at 2100 | | | | | | + +-------+ + +---+---+ + +---+ | | | + +---+ | sodium chloride (PF) 0.9 % | | | flush 10 mL 10 mL, Intravenous, | | | Every 8 Hours PRN, Line Care, | | | when tolerating oral fluids, | | | Starting Fri05/26/19 at 1714 | | + +---+ | | | + +---+ + +-------+ +--------+---+---+ | sodium chloride 0.9 % flush 10 | Given | | 10 mLs | | | | mL 10 mL, Intravenous, Every 8 | | 9 20:36 | | | | | Hours, First dose on Fri05/26/19 | | PDT | | | | | at 2000 | | | | | | + +-------+ +--------+---+---+ +---+---+ | | | +---+---+ in this encounter
--- OUTSIDE RECORDS SUMMARY | ~2019-08-22 | XMS | Encounter Summary ---
Demographics + + + | Address | [address] | | | [place] [address] | + + + | Home Phone | | + + + | Preferred Language | Unknown | + + + | Marital Status | | + + + | Evangelical Affiliation | Unknown | + + + | Race | Unknown | + + + | Ethnic Group | Unknown | + + + Author + + + | Author | [employer] [facility] (Historical as of | | | 06-26-19) | + + + | Organization | [facility] (Historical as of | | | 06-26-19) | + + + | Address | Unknown | + + + | Phone | Unavailable | + + + Support + + + + + | Name | Relationship | Address | Phone | + + + + + | Lyubov Smalls | ECON | [place], [place] | | | | | [address] | | + + + + + | Lydia Palm | ECON | [place], [place] | | | | | [address] | | + + + + + | Jose C Oconnor | ECON | [address] [place] | | | | | [place] | | | | | [address] | | + + + + + Care Team Providers + +------+ + | Care Communication Equipment Mechanic Name | Role | Phone | + +------+ + | Eileen Rick | PCP | | + +------+ + Reason for Visit +--------+ + | Reason | Comments | +--------+ + | Other | | +--------+ + Encounter Details +--------+ + + + + | Date | Type | Department | Care Team | Description | +--------+ + + + + | 06/14/ | Telephone | [facility] | Jacek Zapata, | Other | | 2018 | | [address] | DO [address] | | | | | [place] | [address] [place], | | | | | [address] | [place] [address] | | | | | [phone] | [phone] | | | | | | | [...]
--- OUTSIDE RECORDS SUMMARY | ~2019-08-22 | XMS | Encounter Summary ---
Demographics + + + | Address | [address] | | | [place] [address] | + + + | Home Phone | | + + + | Preferred Language | Unknown | + + + | Marital Status | | + + + | Baptist Affiliation | Unknown | + + + | Race | Unknown | + + + | Ethnic Group | Unknown | + + + Author + + + | Author | [facility] | | | and [place] | + + + | Organization | [facility] | | | and [place] | + + + | Address | Unknown | + + + | Phone | Unavailable | + + + Support + + + + + | Name | Relationship | Address | Phone | + + + + + | Lyubov Smalls | ECON | [place], [place] | | | | | [address] | | + + + + + | Lydia Palm | ECON | [place], [place] | | | | | [address] | | + + + + + | melinda britton | ECON | [place], [place] | | | "[place]" | | [address] | | + + + + + | Jose C Mejia | ECON | [place] | | | | | [place] | | | | | [address] | | + + + + + Care Team Providers + +------+ + | Care Career Professional Name | Role | Phone | + [...] + + | 07/22/ | Telephone | [facility] | Qasim Pederson MD | Other | | 2019 | | VASCULAR SURGERY | [address] | | | | | [address] | [place], [place] | | | | | [place], [place] | [address] | | | | | [address] | | | | | | [phone] | | | +--------+ + + + [...] documented as of this encounter Visit Diagnoses Not on filedocumented in this encounter
--- OUTSIDE RECORDS SUMMARY | ~2019-08-22 | XMS | Encounter Summary ---
Demographics + + + | Address | [address] | | | [place] [address] | + + + | Home Phone | | + + + | Preferred Language | Unknown | + + + | Marital Status | | + + + | Jehovah'S Witness Affiliation | Unknown | + + + | Race | Unknown | + + + | Ethnic Group | Unknown | + + + Author + + + | Author | [employer] [facility] (Historical as of | | | 06-26-19) | + + + | Organization | [facility] (Historical as of | | | 06-26-19) | + + + | Address | Unknown | + + + | Phone | Unavailable | + + + Support + + + + + | Name | Relationship | Address | Phone | + + + + + | Lyubov Smalls | ECON | [place], [place] | | | | | [address] | | + + + + + | Lydia Palm | ECON | [place], [place] | | | | | [address] | | + + + + + | Jose C Oconnor | ECON | [address] | | | | | [place] | | | | | [address] | | + + + + + Care Team Providers + +------+ + | Care Garbage Collector Supervisor Name | Role | Phone | + +------+ + | Eileen Rick | PCP | | + +------+ + Encounter Details +--------+ + + + + | Date | Type | Department | Care Team | Description | +--------+ + + + + | 05/26/ | Procedure | [facility] | | | | 2019 | [facility] | | | | | | Operating Room [facility] | | | | | | [facility] | | | | | | [place] [address] | | | | | | [phone] | | | +--------+ + + + [...]
--- OUTSIDE RECORDS SUMMARY | ~2019-08-22 | XMS | Encounter Summary ---
Demographics + + + | Address | [address] | | | [place] [address] | + + + | Home Phone | | + + + | Preferred Language | Unknown | + + + | Marital Status | | + + + | Sikhism Affiliation | Unknown | + + + | Race | Unknown | + + + | Ethnic Group | Unknown | + + + Author + + + | Author | [employer] (Historical as of | | | 06-26-19) | + + + | Organization | [facility] (Historical as of | | | 06-26-19) | + + + | Address | Unknown | + + + | Phone | Unavailable | + + + Support + + + + + | Name | Relationship | Address | Phone | + + + + + | Lyubov Smalls | ECON | [place], [place] | | | | | [address] | | + + + + + | Lydia Palm | ECON | [place], [place] | | | | | [address] | | + + + + + | Jos eC Oconnor | ECON | [address] | | | | | [place] | | | | | [address] | | + + + + + Care Team Providers + +------+ + | Care Engineer Third Assistant Name | Role | Phone | + +------+ + | Eileen Rick | PCP | | + +------+ + Reason for Visit + + + | Reason | Comments | + + + | Follow-up | End-stage renal disease (HCC) | + + + Encounter Details +--------+---------+ + + + | Date | Type | Department | Care Team | Description | +--------+---------+ + + + | 06/21/ | Office | [facility] | Kylie Alves DNP | ESRD (end stage | | 2019 | Visit | Vascular Surgery | [address] | renal disease) on | | | | [address] | [place], [place] | dialysis (HCC) | | | | [place], [place] | [address] | (Primary Dx); | | | | [address] | | Hemodialysis access, | | | | [phone] | | AV graft (HCC); | | | | | | Surgical wound | | | | | | dehiscence, | | | | | | subsequent encounter | +--------+---------+ + + + Social History [...] Last Filed Vital Signs + +---------+ + | Vital Sign | Reading | Time Taken | + +---------+ + | Blood Pressure | 114/76 | 06/21/2019 3:05 PM PDT | + +---------+ + | Pulse | 65 | 06/21/2019 3:05 PM PDT | + +---------+ + | Temperature | - | - | + +---------+ + | Respiratory Rate | - | - | + +---------+ + | Oxygen Saturation | 100% | 06/21/2019 3:05 PM PDT | + +---------+ + | Inhaled Oxygen | - | - | | Concentration | | | + +---------+ + | Weight | - | - | + +---------+ + | Height | - | - | + +---------+ + | Body Mass Index | - | - | + +---------+ + in this encounter Progress Notes Kylie Alves DNP - 06/21/2019 3:00 PM [facility] [address] [place] [address] Office: [phone] DATE OF VISIT: 06/21/2019 PATIENT NAME: Ramona Oconnor : 1980; AGE: 39 y.o.; Sex:F PHONE NUMBER: ; ; PROVIDER: Kylie Alves DNP PRIMARY CARE / REFERRING PHYSICIAN: Eileen Rick FNP / Eileen Rick / [id number] [facility] [address] / [place] [address] REASON FOR EVALUATION / CHIEF COMPLAINT: Vascular Surgery Postoperative Visit for left arm AVG creation, left arm exploration, washout and wound vac placement The patient presents today for a Vascular Surgery Postoperative Visit. The patient is statu s post creation of arteriovenous graft with left axillaryartery and axillary vein using 7m m Bovine carotid graft by Dr. Pederson on 05/06/2019. The patient developed surgical wound dehisce nce of her left axillary wound with visible graft exposure. She underwent left arm wound exp loration, washout and wound vac placement on 05/26/2019 at the [facility] Operating Room. The patient is not having any pain. The patient reports her home health RN removed her wound vac over 1 week ago. She denies fever, wound drainage, increasing redness, pus, increasing pain, increasing swelling. Physical examination revealed surgical incision which is healing well without signs of infection. She has good thrills over the AVG site. VITAL SIGNS: BP 114/76 (BP Location: Right upper arm, Patient Position: Sitting) | Pulse 6 5 | SpO2 100% PHYSICAL EXAM: Constitutional: Well nourished, no signs of distress HENT: Non icteric sclerae, oropharynx clear. Normocephalic and atraumatic. Cardiovascular: Normal rate, regular rhythm. Pulmonary/Chest: No respiratory distress. Tunneled catheter in place. Abdominal: Soft. No abdominal distension or tenderness. Musculoskeletal: Normal range of motion. Extremities: No cyanosis or clubbing. Neurological: She is alert and oriented. VASCULAR: normal thrill in left arm AVG. Open wound in left axillary, 2 x 2 x 0.5 cm, pink wound base, no erythema noted. ASSESSMENT AND PLAN: ESRD & s/p left arm axillary artery and axillary vein AVG, wound debridement and wound vac placement- The AVG has good flow. The patient needs to continue to use her tunneled catheter for hemodialysis. Wound care discussed with patient, continue to pack the wound, monitor fo r signs of infection. Check for AVG thrill daily. Also advised patient to avoid sleeping on her left side as it may cause AVG compression resulting in hand swelling and graft occlusion . The patient is instructed to return to our clinic in 2 weeks for hot billet shear operator check follow up. Kylie Alves DNP in this encounter Plan of Treatment Not on fileas of this encounter Visit Diagnoses + + | Diagnosis | + + | ESRD (end stage renal disease) on dialysis (HCC) - Primary | + + | End stage renal disease | + + | Hemodialysis access, AV graft (HCC) | + + | Surgical wound dehiscence, subsequent encounter | + +"
--- OUTSIDE RECORDS SUMMARY | ~2019-08-22 | XMS | Clinical Summary ---
Demographics + + + | Address | [address] | | | [place] [address] | + + + | Home Phone | | + + + | Preferred Language | Unknown | + + + | Marital Status | | + + + | Latter-Day Affiliation | Unknown | + + + | Race | Unknown | + + + | Ethnic Group | Unknown | + + + Author + + + | Author | [facility] (Historical as of | | | 06-26-19) | + + + | Organization | [facility] (Historical as of | | | 06-26-19) | + + + | Address | Unknown | + + + | Phone | Unavailable | + + + Support + + + + + | Name | Relationship | Address | Phone | + + + + + | Lyubov Smalls | ECON | [place], [place] | | | | | [address] | | + + + + + | Lydia Palm | ECON | [place], [place] | | | | | [address] | | + + + + + | Jose C Oconnor | ECON | [place] | | | | | [place] | | | | | [address] | | + + + + + Care Team Providers + +------+ + | Care Sales Assistant Displays Name | Role | Phone | + +------+ + | Eileen Rick | PP | | + +------+ + Allergies No Known Allergies Current Medications + + +--------+---------+------+------+-------+ | Prescription | Sig. | Disp. | Refills | Star | End | Statu | | | | | | t | Date | s | | | | | | Date | | | + + +--------+---------+------+------+-------+ | promethazine | Take 25 mg by mouth | | | | | Activ | | (PHENERGAN) 25 MG | every 6 (six) hours | | | | | e | | tablet | as needed for | | | | | | | | Nausea. | | | | | | + + +--------+---------+------+------+-------+ | omeprazole | Take 20 mg by mouth | | | | | Activ | | (PRILOSEC) 20 MG | every morning before | | | | | e | | capsule | breakfast. | | | | | | + + +--------+---------+------+------+-------+ | sevelamer | Take 1,600-2,400 mg | | | | | Activ | | (RENVELA) 800 MG | by mouth See Admin | | | | | e | | tablet | Instructions. Take | [...] | | | | | + + +--------+---------+------+------+-------+ | | Take 1 tablet by | 30 | 0 | 07/1 | | Activ | | oxyCODONE-acetaminop | mouth every 4 (four) | tablet | | 7/20 | | e | | hen (PERCOCET) 5-325 | hours as needed. | | | 19 | | | | MG per tablet | | | | | | | + + +--------+---------+------+------+-------+ Active Problems + + + | Problem | Noted Date | + + + | End-stage renal disease (HCC) | 02/01/2019 | + + + | Cyst of right ovary | 02/01/2019 | + + + | Diverticulitis | [...] Date | + + + + | Peritoneal dialysis catheter infection (HCC) | 02/12/20 | | | | 19 | 9 | + + + + | Gastroenteritis | 02/02/20 | | | | 19 | 9 | + + + + | Prolonged Q-T interval on ECG | 02/02/20 | | | | 19 | 9 | + + + + | SIRS (systemic inflammatory response syndrome) (HCC) | 02/02/20 | | | | 19 | 9 | + + + + | Left [...] | + + + + | Sepsis ([facility]) | 03/16/20 | | | | 18 | 8 | + + + + | Peritonitis ([facility]) | 03/16/20 | | | | 18 [...] 9 | + + + + | ESRD on peritoneal dialysis | 06/04/20 | | | | 17 | 9 | + + + + + + | Last [...] advised. | + + + + + + | Hypokalemia | 06/04/20 | | | | 17 | 9 | + + + + | Intractable nausea and vomiting | 06/04/20 | | | | [...] | +--------+ + + + + | 06/23/ | Telephone | | Kylie Alves DNP | Other | | 2018 | | | | | +--------+ + + + + | 06/21/ | Office | | Kylie Alves DNP | ESRD (end stage | | 2018 | Visit | | | renal disease) on | | | | | | dialysis (HCC) | | | | | | (Primary Dx); | | | | | | Hemodialysis access, | | | | | | AV graft (HCC); | | | | | | Surgical wound | | | | | | dehiscence, | | | | | | subsequent encounter | +--------+ + + + + | 06/15/ | Documentati | | Santos Chi MD | Other (May | | 2018 | on Only | | [facility] | | | | | Dialysis Rounding | | | | | | Note) | +--------+ + + + + | 06/14/ | Telephone | | Kylie Alves DNP | Other | | 2018 | | | | | +--------+ + + + + | 06/14/ | Telephone | | Jacek Zapata, | Other | | 2018 | | | DO | | +--------+ + + + + | 05/28/ | Telephone | | Marixa Mendoza, | | | 2018 | | | POWERHOUSE ENGINEER | | +--------+ + + + + | 05/26/ | Hospital | | Qasim Pederson MD | | | 2019 - | Encounter | | | | | | | | | | | 05/27/ | | | | | | 2018 | | | | | +--------+ + + + + | 05/26/ | Telephone | Qasim Ocampo MD | Paperwork (Face to | | 2019 | | | | Face ) | +--------+ + + + + | 05/26/ | Telephone | Qasim Ocampo MD | Other (Question) | | 2019 | | | | | +--------+ + + + + | 05/26/ | Anesthesia | | Louisa Ramos MD | | | 2019 | Event | | | | +--------+ + + + + | 05/26/ | Procedure | | | | | 2019 | Pass | | | | +--------+ + + + + | 05/26/ | Surgery | | Qasim Pederson MD | WOUND VAC - | | 2018 | | | | PLACEMENT - | | | | | | REPLACEMENT | +--------+ + + + + | 05/25/ | Office | | Kylie Alves DNP | End-stage renal | | 2018 | Visit | | | disease (HCC) | | | | | | (Primary Dx); | | | | | | Hemodialysis access, | | | | | | AV graft (HCC); | | | | | | Dehiscence of | | | | | | operative wound, | | | | | | initial encounter | +--------+ + + + + from [...] | healthy | + + +--------+ + | Malig hypertherm | Neg Hx | | | + + +--------+ + + +--------+--------+ [...] 5:50 PM PDT | + + + Last Filed Vital Signs + + + + | Vital Sign | Reading | Time Taken | + + + + | Blood Pressure | 114/76 | 06/21/2019 3:05 PM PDT | + + + + | Pulse | 65 | 06/21/2019 3:05 PM PDT | + + + + | Temperature | 36.5 C (97.7 F) | 05/27/2019 8:02 AM PDT | + + + + | Respiratory Rate | 19 | 05/27/2019 8:02 AM PDT | + + + + | Oxygen Saturation | 100% | 06/21/2019 3:05 PM PDT | + + + + [...] PM PDT | + + + + Plan [...] | 10/23/2015 | | | (#1) | 9 | | | + + + + + | Cervical Cancer | | 04/03/2018 | | | Screening (Pap) | 3 | | | + + + + + Implants + +------+--------+ +--------+--------+--------+ | Implanted | Type | Area | Manufacture | Device | Expira | Model | | | | | r | | tion | / | | | | | | Identi | Date | Serial | | | | | | fier | | / Lot | + +------+--------+ +--------+--------+--------+ | Graft Vasc Collgn Bov | | Left: | ARTEGRAFT - | | 11/09/ | [id number] | | [id number] - Sn/AImplanted: | | Arm | ARTG [...] + +--------+ + + + | US HEMODIALYSIS | Routin | 06/21/2019 | ESRD (end stage | Results for this | | ACCESS FISTULA [place] | e | 3:55 PM | renal disease) on | procedure are in the | | GRAFT | | PDT | dialysis (HCC) | results section. | + +--------+ + + + | BASIC METABOLIC | STAT | 05/26/2019 | | Results for this | | PANEL | | 4:00 PM | | procedure are in the | | | | PDT | | results section. | + +--------+ + + + | REGIONAL BLOCK | Routin | 05/26/2019 | | | | | e | 1:53 PM | | | | | | PDT | | | + +--------+ + + + +---+--------+ | | | | | Proced | | | ure | | | Note - | | | Richard, | | | Louisa | | | A, MD | | | - | | | 05/26/ | | | 2019 | | | 1:53 | | | PM PDT | | | | | | Region | | | al | | | BlockS | | | tart | | | time: | | | | | | 019 | | | 1:53 | | | PMWhat | | | Type: | | | | | | Suprac | | | lavicu | | | larPos | | | ition: | | | | | | supine | | | Prep: | | | Chlorh | | | exidin | | | e | | | Isopro | | | pyl | | | Alcoho | | | lPrean | | | esthet | | | ic | | | Checkl | | | istCom | | | pleted | | | : | | | patien | | | t | | | identi | | | fied, | | | IV | | | checke | | | d, | | | site | | | marked | | | , | | | risks | | | and | | | benefi | | | ts | | | discus | | | sed, | | | monito | | | rs and | | | | | | equipm | | | ent | | | checke | | | d and | | | post-o | | | p pain | | | | | | manage | | | mentNe | | | edleIn | | | jectio | | | n | | | techni | | | que: | | | Single | | | -shotN | | | eedle | | | size: | | | 22 | | | GTechn | | | iqueUl | | | trasou | | | nd | | | guided | | | 0.4 mA | | | - | | | Motor | | | respon | | | se | | | obtain | | | ed: | | | biceps | | | | | | twitch | | | Narrat | | | elizabeth | | | End | | | time: | | | 7/17/2 | | | 019 | | | 2:08 | | | PMInje | | | ction | | | made | | | in 30 | | | mL | | | divide | | | d | | | doses | | | with | | | aspira | | | tion | | | of no | | | blood. | | | | | | Events | | | : no | | | blood | | | aspira | | | medina, | | | negati | | | ve IV | | | test | | | dose, | | | No CSF | | | | | | observ | | | ed and | | | no | | | parest | | | hesiaA | | | dditio | | | nal | | | NotesR | | | &B | | | suprac | | | lavicu | | | lar | | | block | | | disc | | | w/ pt | | | in | | | preop | | | holdin | | | g | | | prior | | | to | | | sedati | | | on and | | | she | | | wished | | | to | | | procee | | | d | | | after | | | all | | | questi | | | ons | | | answer | | | ed. Pt | | | | | | placed | | | on | | | monito | | | r and | | | given | | | sedati | | | on | | | with | | | 2mg | | | midazo | | | alonzo | | | with | | | O2 | | | mask @ | | | 6lpm. | | | | | | Steril | | | e prep | | | of | | | left | | | latera | | | l | | | neck/a | | | nt | | | chest | | | above | | | clavic | | | le. | | | AFter | | | BP | | | identi | | | fied | | | with | | | US, 2% | | | | | | lidoca | | | ine | | | infilt | | | rated | | | on | | | skin | | | and sc | | | | | | tissue | | | . | | | Using | | | US | | | guidan | | | ce, 4 | | | in n | | | stim | | | needle | | | | | | advanc | | | e | | | toward | | | BP | | | and | | | biceps | | | | | | twitch | | | down | | | to | | | 0.4m A | | | | | | obtain | | | ed. | | | After | | | negati | | | ve | | | aspira | | | tion | | | prior | | | to | | | each | | | inject | | | ion, | | | 3-5 ml | | | of | | | 0.5% | | | ropiva | | | ken | | | inject | | | ed | | | around | | | BP | | | for | | | total | | | of 30 | | | ml. Pt | | | had | | | fullne | | | ss | | | discom | | | fort | | | in | | | should | | | er | | | during | | | | | | inject | | | ion | | | but no | | | | | | parest | | | hesia | | | down | | | arm. | | | Pt | | | tolera | | | medina | | | proced | | | ure | | | well. | | | Numbne | | | ss in | | | thumb/ | | | hand | | | starti | | | ng | | | severa | | | l min | | | after | | | block | | | comple | | | medina. | +---+--------+ + +------+ + + + | HCG, SERUM, | STAT | 05/26/2019 | | Results for this | | QUALITATIVE | | 1:48 PM | | procedure are in the | | | | PDT | | results section. | + +------+ + + + | BASIC METABOLIC | STAT | 05/26/2019 | | Results for this | | PANEL | | 1:48 PM | | procedure are in the | | | | PDT | | results section. | + +------+ + + + | WOUND VAC - | | 05/26/2019 | ESRD, SURGICAL | | | PLACEMENT - | | 1:01 PM | WOUND DEHISCENCE | | | REPLACEMENT | | PDT | | | + +------+ + + + +---+--------+ | | | | | Specia | | | l | | | Needs | | | 2 hrs | | | per | | | Georgette | +---+--------+ + +--------+ +---+---+ | CASE REQUEST | Routin | 05/25/2019 | | | | OPERATING ROOM | e | 4:49 PM | | | | | | PDT | | | + +--------+ +---+---+ from Last 3 Months Results hemodialysis access fistula or graft (06/21/2019 3:55 PM) + + + | Impressions | Performed At | + + + | Patent axillary artery to axillary vein loop graph. Flow volumes | [facility] | | ranges from 263-914 mL/minute. Elevated velocities at the arterial | RADIOLOGY | | and vein anastomosis. Signed by: Daphney Dumont, Slade Sign Date/Time: | | | 06/22/2019 12:08 PM | | + + + + + + | Narrative | Performed At | + + + | UV HEMODIALYSIS ACCESS DUPLEX-COMPLICATIONS CLINICAL INFORMATION: | [facility] | | Left axillary artery to axillary vein loop graft COMPARISON: US | RADIOLOGY | | HEMODIALYSIS ACCESS FISTULA OR GRAFT [...] Volume flow: 914 cc/min: Diameter: 7.6 mm. Kenefic loop: | | | PSV: 52 cm/sec. Volume flow: 236 cc/min: Diameter: 6 9.6 mm. | | | Efferent loop: PSV: 71 cm/sec. Volume flow: 740 cc/min: Diameter: | | | 9.1 mm. Vein outflow: 68 cm/s | | + + + + + | Procedure Note | + + | Endy, Rad Results In - 06/22/2019 12:11 PM PDT UV HEMODIALYSIS ACCESS | | DUPLEX-COMPLICATIONSCLINICAL INFORMATION:Left axillary artery to axillary vein loop | | graftCOMPARISON:US HEMODIALYSIS ACCESS FISTULA OR GRAFT (04/22/2019); CT NEEDLE | | BIOPSYKIDNEY (10/26/2015); US KIDNEYS AND BLADDER (10/25/2015);PROCEDURE:Grayscale, | | color Doppler and Doppler with duplex imaging with attentionto the left upper | | extremity.FINDINGS:Axillary artery inflow: PSV: 142 cm/sec. Volume flow: 397 | | cc/min.Diameter: 5.3 mm.Anastomosis: Volume flow: 635 cc/min Diameter: 4.2 mm.Afferent | | loop: 70 cm/sec. Volume flow: 914 cc/min: Diameter: 7.6 mm.Kenefic loop: PSV: 52 cm/sec. | | Volume flow: 236 cc/min: Diameter: 6 9.6 mm.Efferent loop: PSV: 71 cm/sec. Volume flow: | | 740 cc/min: Diameter: 9.1mm.Vein outflow: 68 cm/sIMPRESSION:Patent axillary artery to | | axillary vein loop graph.Flow volumes ranges from 263-914 mL/minute.Elevated velocities | | at the arterial and vein anastomosis.Signed by: Daphney Dumont ChetSign Date/Time: | | 06/22/2019 12:08 PM | |Afferent loop: 70 cm/sec. Volume flow: 914 cc/min: Diameter: 7.6 mm. | |Kenefic loop: PSV: 52 cm/sec. Volume flow: 236 cc/min: Diameter: 6 9.6 mm. | |Efferent loop: PSV: 71 cm/sec. Volume flow: 740 cc/min: Diameter: 9.1 | |mm. | |Vein outflow: 68 cm/s | |IMPRESSION: | |Patent axillary artery to axillary vein loop graph. | |Flow volumes ranges from 263-914 mL/minute. | |Elevated velocities at the arterial and vein anastomosis. | |Signed by: Daphney Dumont Chet | |Sign Date/Time: 06/22/2019 12:08 PM | + + + + + + + | Performing | Address | City/State/Zipcode | Phone Number | | Organization | | | | + + + + + | [facility] | [address] | [place] [address] | | + + + + + Basic metabolic panel (05/26/2019 4:00 PM)Only the most recent of 2 results within the period is included. + + + + + | Component | Value | Ref Range | Performed At | + + + + + | SODIUM | 136 | 135 - 145 mmol/L | [facility] | + + + + + | POTASSIUM | 5.8 (H) | 3.5 - 4.9 mmol/L | [facility] | + + + + + | CHLORIDE | 100 | 99 - 109 mmol/L | [facility] | + + + + + | CO2 | 26 | 23 - 32 mmol/L | [facility] | + + + + + | ANION GAP AGAP | 16 | 5 - 20 mmol/L | [facility] | + + + + + | GLUCOSE | 71 | 65 - 99 mg/dL | [facility] | + + + + + | BUN | 33 (H) | 8 - 25 mg/dL | [facility] | + + + + + | CREATININE | 9.91 (H) | 0.50 - 1.00 mg/dL | [facility] | + + + + + | BUN/CREAT | 3 | | [facility] | + + + + + | CALCIUM | 8.7 | 8.5 - 10.5 mg/dL | [facility] | + + + + + | EGFR | 4 (L)Comment: GFR <60: | >60 mL/min/1.73m2 | [facility] | | | CHRONIC KIDNEY DISEASE, [...] | | | | | performed at [facility] | | | | | [facility];[place], [place] | | | | | [address] | | | + + + + + + + | Specimen | + + | Blood | + + + + + + + | Performing | Address | City/State/Zipcode | Phone Number | | Organization | | | | + + + + + | [facility] | [address] | [place] [address] | | + + + + + test, serum (05/26/2019 1:48 PM) + + + + + | Component | Value | Ref Range | Performed At | + + + + + | TEST,SERUM | NEGATIVEComment: Testing | NEGATIVE | [facility] | | | performed at [facility];[address];[place] | | | | | [address] | | | + + + + + + + | Specimen | + + | Blood | + + + + + + + | Performing | Address | City/State/Zipcode | Phone Number | | Organization | | | | + + + + + | [facility] | [address] | [place] [address] | | + + + + + [...] +------+-------+ + | PREMERA | PREMER | [id number] | | | [address] [address] | | | A BLUE | | | | [place], [place] | | | CROSS | | | | [address] | | | FED | | | | | | | PPO | | | | | + +--------+ +------+-------+ + | [employer] | YELLOW | [id number] | | | | | PLANS | [place] | | | | | + +--------+ +------+-------+ + | MEDICARE | MEDICA | [id number] | | | [address] | | | RE | | | | [place] [address] | | | MIKE Raymundo | | | | | | | [...] Self | [birth year] | Home: | [address] | | [place] | al/Fam | | [phone] | [phone] | [place] | | | caesar | | | [phone] | [phone] | + +--------+ +--------+ + +
--- OUTSIDE RECORDS SUMMARY | ~2019-08-22 | XMS | Encounter Summary ---
Demographics + + + | Address | [address] | | | [place] [address] | + + + | Home Phone | | + + + | Preferred Language | Unknown | + + + | Marital Status | | + + + | Church Affiliation | Unknown | + + + [...] [place], [place] | | | | | [address] | | + + + + + | Lydia Palm | ECON | [place], [place] | | | | | [address] | | + + + + + | melinda britton | ECON | [place], [place] | | | "[place]" | | [address] | | + + + + + | Jose C Mejia | ECON | [address] [place] | | | | | [place] | | | | | [address] | | + + + + + Care Team Providers + +------+ + | Care Slot Floor Attendant Name | Role | Phone | [...] + + | 07/09/ | Telephone | [facility] | Marixa Mendoza, | Follow-up | | 2018 | | VASCULAR SURGERY | Shipping & Receiving Lead | | | | | [address] | | | | | | [place] | | | | | | [address] | | | | | | [phone] | | | +--------+ + + + [...]
--- OUTSIDE RECORDS SUMMARY | ~2019-08-22 | XMS | Encounter Summary ---
Demographics + + + | Address | [address] | | | [place] [address] | + + + | Home Phone | | + + + | Preferred Language | Unknown | + + + | Marital Status | | + + + | Scientology Affiliation | Unknown | + + + | Race | Unknown | + + + | Ethnic Group | Unknown | + + + Author + + + | Author | [facility] (Historical as of | | | 06-26-19) | + + + | Organization | [facility] (Historical as of | | | 06-26-19) | + + + | Address | Unknown | + + + | Phone | Unavailable | + + + Support + + + + + | Name | Relationship | Address | Phone | + + + + + | Lyubov Smalls | ECON | [place], [place] | | | | | [address] | | + + + + + | Lydia Palm | ECON | [place], [place] | | | | | [address] | | + + + + + | Jose C Oconnro | ECON | [address] | | | | | [place] | | | | | [address] | | + + + + + Care Team Providers + +------+ + | Care Power Shovel Mechanic Name | Role | Phone | [...] + + | 05/26/ | Hospital | [facility] | Qasim Pederson MD | | | 2019 - | Encounter | [facility] C[facility] | [address] | | | | | Floor [place] | [place], [place] | | | 05/27/ | | Pavilion [address] | [address] [address] | [address] [place], [place] | | | | | | [address] | | | +--------+ + + + [...] chamber of the vacuum Date Last Reviewed: 12/11/201619992238-0968 [employer]. [address] [place] [address], [place] [address]. All [facility] ts reserved. This information is not [...] information carefully each time. Talk to your coil rewind machine operator regarding the use of this medicine in children. Special care may be needed. What side effects may I notice from receiving this medicine? Side effects that you should report to your doctor or health gericare aide as soon as p ossible: allergic reactions [...] attention (report to your doctor or health gericare aide if they continue or are bothersome): constipation [...] to an official disposal site. Contact the [facility] at or your [facility] to find a site. If you [...] this medicine? Tell your doctor or health gericare aide if your pain does not go away, [...] days, call your doctor or health care profskyleri jr. Your mouth may get dry. Chewing [...] and tube site wet, unless your healthca re provider tells you otherwise. Ask your provider [...] after an initial decrease Date Last Reviewed: 02/08/201819998677-4488 [employer]. [address] [place] [address]. All righ ts reserved. This information is [...] information carefully each time. Talk to your coil rewind machine operator regarding the use of this medicine in children. Special care may be needed. What side effects may I notice from receiving this medicine? Side effects that you should report to your doctor or health gericare aide as soon as p ossible: allergic reactions [...] attention (report to your doctor or health gericare aide if they continue or are bothersome): constipation [...] to an official disposal site. Contact the [facility] at [phone] or your [facility] to find a site. If you [...] this medicine? Tell your doctor or health gericare aide if your pain does not go away, [...] pharmacist, or health care provider. Copyright 2019 [employer] in this encounter Medications at Time of [...] tablet by | 30 | 0 | 07//20 | | | oxyCODONE-acetaminop | mouth every [...] (H) | 3.5 - 4.9 mmol/L | [facility] | + + + + + | CHLORIDE | 100 | 99 - 109 mmol/L | [facility] | + + + + + | CO2 | 26 | 23 - 32 mmol/L | [facility] [...] + | BUN/CREAT | 3 | | [facility] | + + + + + | CALCIUM | 8.7 | 8.5 - 10.5 mg/dL | [facility] | + + + + + | EGFR | 4 (L)Comment: GFR <60: | >60 mL/min/1.73m2 | [facility] | | | CHRONIC KIDNEY [...] the | | | | | MDRD IDTX traceable | | | | | equation.Testing | | | | | performed at [facility] | | | | | [facility];[place], [place] | | | | | [address] | | | + + + + + + + | Specimen | + + | Blood | + + + + + + + | Performing | Address | City/State/Zipcode | Phone Number | | Organization | | | | + + + + + | [facility] | [address] | [place] [address] | | + + + + + test, serum (05/26/2019 1:48 PM) + + + + + | Component | Value | Ref Range | Performed At | + + + + + | TEST,SERUM | NEGATIVEComment: Testing | NEGATIVE | [facility] | | | performed at [facility];[place] | | | | | [address] | | | + + + + + + + | Specimen | + + | Blood | + + + + + + + | Performing | Address | City/State/Zipcode | Phone Number | | Organization | | | | + + + + + | [facility] | [address] | [place] [address] | | + + + + + Basic metabolic panel (05/26/2019 1:48 PM) + + + + + | Component | Value | Ref Range | Performed At | + + + + + | SODIUM | 138 | 135 - 145 mmol/L | [facility] | + + + + + | POTASSIUM | 5.5 (H) | 3.5 - 4.9 mmol/L | [facility] [...] (L)Comment: GFR <60: | >60 mL/min/1.73m2 | [facility] | | | CHRONIC KIDNEY [...] the | | | | | MDRD IDTX traceable | | | | | equation.Testing | | | | | performed at [facility] | | | | | [facility];[place], [place] | | | | | [address] | | | + + + + + + + | Specimen | + + | Blood | + + + + + + + | Performing | Address | City/State/Zipcode | Phone Number | | Organization | | | | + + + + + | [facility] | [address] | [place] [address] | | + + + + + [...] Pain (1-3), | | | Fever, Starting 05/26/19 at | | | 1714 | | [...] 9 17:24 | | | | | Fri05/26/19 at 1730, For 1 dose, | | [...] | | | | | dose on [facility] 05/27/19 at 0630 | | | | | | + +-------+ +-------+---+---+ + +---+ | | | + +---+ | promethazine (PHENERGAN) IVPB | | | 6.25 mg 6.25 mg, Intravenous, | | | Administer over 15 Minutes, Every | | | 6 Hours PRN, Nausea, Vomiting, | | | Starting 05/26/19 at 1936, | | | When ordered [...]
--- OUTSIDE RECORDS SUMMARY | ~2019-08-22 | XMS | Encounter Summary ---
Demographics + + + | Address | [address] | | | [place] [address] | + + + | Home Phone | | + + + | Preferred Language | Unknown | + + + | Marital Status | | + + + | Muslim Affiliation | Unknown | + + + [...] [place], [place] | | | | | [address] | | + + + + + | Lydia Palm | ECON | [place], [place] | | | | | [address] | | + + + + + | melinda britton | ECON | [place], [place] | | | "[place]" | | [phone] | | + + + + + | Jose C Mejia | ECON | [address] | | | | | [place] | | | | | [address] | | + + + + + Care Team Providers + +------+ + | Care Manager E Learning Name | Role | Phone | + [...] + + | 07/06/ | Telephone | [facility] | Nidhi Whitaker, | Appointment | | 2018 | | VASCULAR SURGERY | RN | | | | | [address] | | | | | | [place] | | | | | | [address] | | | | | | [phone] | | | +--------+ + + + [...]
--- OUTSIDE RECORDS SUMMARY | ~2019-08-22 | XMS | Encounter Summary ---
Demographics + + + | Address | [address] | | | [place] [address] | + + + | Home Phone | | + + + | Preferred Language | Unknown | + + + | Marital Status | | + + + | Faith Affiliation | Unknown | + + + | Race | Unknown | + + + | Ethnic Group | Unknown | + + + Author + + + | Author | [employer] 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
--- OUTSIDE RECORDS SUMMARY | ~2019-08-22 | XMS | Encounter Summary ---
Demographics + + + | Address | [address] | | | [place] [address] | + + + | Home Phone | | + + + | Preferred Language | Unknown | + + + | Marital Status | | + + + | Pentecostal Affiliation | Unknown | + + + | Race | Unknown | + + + | Ethnic Group | Unknown | + + + Author + + + | Author | [facility] | | | and [place] | + + + | Organization | [facility] | | | and [place] | + + + | Address | Unknown | + + + | Phone | Unavailable | + + + Support + + + + + | Name | Relationship | Address | Phone | + + + + + | Lyubov Smalls | ECON | [place], [place] | | | | | [address] | | + + + + + | Lydia Palm | ECON | [place], [place] | | | | | [address] | | + + + + + | melinda britton | ECON | [place], [place] | | | "[place]" | | [address] | | + + + + + | Jose C Mejia | ECON | [place] | | | | | [place] | | | | | [address] | | + + + + + Care Team Providers + +------+ + | Care Turning Machine Operator Name | Role | Phone | + +------+ + | Juan F Whitley DO | PCP | | + +------+ + Encounter Details +--------+ + + + + | Date | Type | Department | Care Team | Description | +--------+ + + + + | 05/26/ | Hospital | [facility] | Qasim Ryan MD | | | 2019 - | Encounter | [facility] | [address] | | | | | CLINICAL DECISION | [address] [place] | | | 05/27/ | | [facility] [facility] | [address] | | | 2019 | | [place] | | | | | | [address] | | | | | | [phone] | | | +--------+ + + + [...] + | Blood Pressure | 106/62 | 05/27/20191112 PDT | + + + + | Pulse | 68 | 05/27/20191112 PDT | + + + + | Temperature | 36.5 C (97.7 F) | 05/27/20191112 PDT | + + + + | Respiratory Rate | 19 | 05/27/20191112 PDT | + + + + | Oxygen Saturation | - | - | + + + + | Inhaled Oxygen | - | - | | Concentration | | | + + + + | Weight | 82.3 kg (181 lb 7 | 05/27/20191112 PDT | | | oz) | | + + + + | Height | 157.5 cm (5' 2") | 05/27/20191112 PDT | + + + + | Body Mass Index | 33.19 | 05/27/20191112 PDT | + + + + documented in this [...] Notes Conversion Transaction, Provider Unknown - 05/27/2019 1145 PDT Nurse Progress Note by Karen Charlton RN at 05/27/19 1145 Author: Karen Charlton RN Service: (none) Author Type: Registered Nurse Filed: 05/27/196 Date of Service: 05/27/191144 Status: Signed Business Systems Developer: Karen Charlton RN (Registered Nurse) Discharge instructions discussed with patient and family. All questions and concerns answer ed, in home wound care to follow up. Patient stable at time of discharge. IV removed and ban dage applied. All belongings with patient. Patient discharged via ambulation to private [facility] with family. onversio n Transaction, Provider Unknown - 05/27/2019749 PDTFormatting of this note might be differ ent from the original. Nurse Progress Note by Zhane Ghotra RN at 05/27/19749 Author: Zhane Ghotra RN Service: (none) Author Type: Registered Nurse Filed: 05/27/1936 Date of Service: 05/27/19749 Status: Signed Business Systems Developer: Zhane Ghotra RN (Registered Nurse) Pt awaken [...] b e asleep 15 minutes later, approximately. onversio n Transaction, Provider Unknown - 05/27/2019 0554 PDTFormatting of this note might be differ ent from the original. Nurse Progress Note by Nadege Gupta RN at 05/27/1997 Author: Nadege Gupta RN Service: (none) Author Type: Registered Nurse Filed: 05/27/19 0555 Date of Service: 05/27/19553 Status: Signed Business Systems Developer: Nadege Gupta RN (Registered Nurse) End of shift chart audit complete. onversio n Transaction, Provider Unknown - 05/27/2019139 PDTFormatting of this note might be differ ent from the original. Pharmacy Note by Shelli Bustos RPH at 05/27/19139 Author: Shelli Bustos RPH Service: Pharmacy Author Type: Pharmacist Filed: 05/27/19139 Date of Service: 05/27/19139 Status: Signed Business Systems Developer: Shelli Bustos RPH (Pharmacist) Clinical Pharmacy Note: Renal Monitoring Height: 157.5 cm Weight: 82.3 kg Patient is on hemodialysis - Usual schedule: Mon-Wed-Fri Currently, there are no medications needing to be adjusted. Pharmacy will continue to monit or for changes in medication orders and adjust accordingly. Bridgett RANDALL 05/27/2019 1:39 AM onversawa n Transaction, Provider Unknown - 05/26/20192199 PDTFormatting of this note might be differ ent from the original. Nurse Progress Note by Nadege Gupta RN at 05/26/192199 Author: Nadege Gupta RN Service: (none) Author Type: Registered Nurse Filed: 05/27/19600 Date of Service: 05/26/192199 Status: Signed Business Systems Developer: Nadege Gupta RN (Registered Nurse) Patient ambulated in her room with RN assistance. Pt tolerated well with no dizziness repor medina. Pt also urinated in the bathroom. Wound vac patent to L axillary with 125 mmHG continuo us pressure. Dressing CDI. Care plan updated with pt, is agreeable. All questions were answe red. onversio n Transaction, Provider Unknown - 05/26/20191839 PDTFormatting of this note might be differ ent from the original. Nurse Progress Note by Richard Alvarez RN at 05/26/191839 Author: Richard Alvarez RN Service: General Surgery Author Type: Registered Nu rse Filed: 05/26/191841 Date of Service: 05/26/191839 Status: Signed Business Systems Developer: Richard Alvarez RN (Registered Nurse) Patient in phase 2. [...] portable unit 1814> Unable to locate a [facility] portable unit in house per tony [place] paul. Have [facility] portabl e unit on hand. Was told to contact Dr Ryan for orders to change unit OR would need admission for night until [facility] could deliver portable unit. Call to Dr Ryan. Dr ryan anticipates longer use of unit >7 days and [facility] will not be ideal for patient. Wants I specifically. Order to admit patient. Patient and family made aware of plans for admission. documente d in this encounter Plan of Treatment +--------+ + [...] this encounter Results Basic Metabolic Panel (05/26/2019 16:00 PDT) + + + + + + [...] | | | | | | MDRD [facility] traceable | | | | | | equation.Testing | | | | | | performed at [facility];[address] | | | | | | [facility];[place], [place] | | | | | | [address] | | | | + + + + + + + + | Specimen | + + | Blood | + + + +---------+ + + | Performing | Address | City/State/Zipcode | Phone Number | | Organization | | | | + +---------+ + + | EXTERNAL LAB | | | | + +---------+ + + , Serum, Qual (05/26/2019 13:48 PDT) + + + + + + | Component | Value | Ref Range | Performed | Pathologist | | | | | At | Signature | + + + + + + | HCG | NEGATIVEComment: Testing | | EXTERNAL | | | QUALITATIVE | performed at [facility] | | LAB | | | | [address];[place] | | | | | | [address] | | | | + + + + + + + + | Specimen | + + | Blood | + + + +---------+ + + | Performing | Address | City/State/Zipcode | Phone Number | | Organization | | | | + +---------+ + + | EXTERNAL LAB | | | | + +---------+ + + Basic Metabolic Panel (05/26/2019 13:48 PDT) + + + + + + [...] | | | | | | MDRD [facility] traceable | | | | | | equation.Testing | | | | | | performed at [facility] | | | | | | [facility];[place], [place] | | | | | | [address] | | | | + + + + + + + + | Specimen | + + | Blood | + + + +---------+ + + | Performing | Address | City/State/Zipcode | Phone Number | | Organization | | | | + +---------+ + + | EXTERNAL LAB | | | | + +---------+ + + documented in this encounter Visit Diagnoses Not on filedocumented in this encounter
--- OUTSIDE RECORDS SUMMARY | ~2019-08-22 | XMS | Encounter Summary ---
Demographics + + + | Address | [address] | | | [place] [address] | + + + | Home Phone | | + + + | Preferred Language | Unknown | + + + | Marital Status | | + + + | Yazdanism Affiliation | Unknown | + + + | Race | Unknown | + + + | Ethnic Group | Unknown | + + + Author + + + | Author | [employer] (Historical as of | | | 06-26-19) | + + + | Organization | [facility] [employer] (Historical as of | | | 06-26-19) | + + + | Address | Unknown | + + + | Phone | Unavailable | + + + Support + + + + + | Name | Relationship | Address | Phone | + + + + + | Lyubov Smalls | ECON | [place], [place] | | | | | [address] | | + + + + + | Lydia Palm | ECON | [place], [place] | | | | | [address] | | + + + + + | Jose C Oconnor | ECON | [place] | | | | | [place] | | | | | [address] | | + + + + + Care Team Providers + +------+ + | Care Inspector Eyeglass Frames Name | Role | Phone | + [...] + + | 06/23/ | Telephone | [facility] | Kylie Alves DNP | Other | | 2019 | | Vascular Surgery | [address] | | | | | [address] | [facility] | | | | | [facility] | [address] | | | | | [address] | | | | | | [phone] | | | +--------+ + + + [...]
--- OUTSIDE RECORDS SUMMARY | ~2019-08-22 | XMS | Clinical Summary ---
Demographics + + + | Address | [address] | | | [place] [address] | + + + | Home Phone | | + + + | Preferred Language | Unknown | + + + | Marital Status | | + + + | Nondenominational Affiliation | Unknown | + + + [...] [place], [place] | | | | | [address] | | + + + + + | Lydia Palm | ECON | [place], [place] | | | | | [address] | | + + + + + | melinda britton | ECON | [place], [place] | | | "[place]" | | [address] | | + + + + + | Jose C Mejia | ECON | [address] [place] | | | | | [place] | | | | | [address] | | + + + + + Care Team Providers + +------+ + | Care Hostess Host Name | Role | Phone | + [...] automatically from request for surgery | | [id number] | + + + + + | Wound infection after surgery | 07/06/2019 | + + + + + | Overview: Added automatically from request for surgery | | [id number] | + + + + + | [...] | | | | DO Sher | ([facility]) (Primary Dx); | | | | | | Hyperkalemia; | | | | | | Generalized | | | | | | abdominal pain; | | | | | | Ovarian mass | +--------+ + + + + | 08/10/ | Clinical | Vascular Surgery | Nidhi Whitaker, | ESRD on dialysis | | 2018 | Support | | RN | ([facility]) (Primary Dx) | +--------+ + + + [...] Follow-up | | 2018 | | | Wire Communications Engineer | | +--------+ + + + + [...] | 2019 | Encounter | | | ([facility]); Wound | | | | | | [...] | | | | | | dialysis ([facility]) | | | | | | (Primary Dx) | +--------+ + + + + | 07/06/ | Orders Only | Vascular Surgery | Qasim Pederson MD | ESRD on dialysis | | 2018 | | | | ([facility]) (Primary Dx); | | | | | [...] | | 11/09/ | [id number] | | [id number] - Sn/AImplanted: | | Arm | ARTG [...] C?MRN: | | | | | | [id number] | | | [id number] | | | riteri | | | [...] | | | St. | | | [place] | | | y | | | [...] | | | St. | | | [place] | | | y | | | [...] | | | St. | | | [place] | | | y | | | [...] | | | St. | | | [place] | | | y H. | | [...] | | | St. | | | [place] | | | y H. | | [...] | | | St. | | | [place] | | | y H. | | [...] | | | St. | | | [place] | | | y H. | | [...] | | | [id number] | | | [id number] | | | 0f | | | [...] | | | | 11:00 PDT | ([facility]) Wound | | | | [...] (500), | | | | | | supervising editor news reel Rashel Polanco | | | | | [...] | | | Absolute | performed at [facility];[address] | [address] | LABORATORY | | | | [address];[place], [place] | | | | | | [address] | | | | + + + + + + + + | Specimen | + + | Blood | + + + + + + + | Performing | Address | City/State/Zipcode | Phone Number | | Organization | | | | + + + + + | [facility] | [address] | [place] [address] | [phone] | + + + + + Lipase (08/10/2019 13:40 PDT) + + + + + + | Component | Value | Ref Range | Performed | Pathologist | | | | | At | Signature | + + + + + + | Lipase | 83 (H)Comment: Testing | 12 - 53 U/L | [facility] | | | | performed at [facility];[address] | | LABORATORY | | | | [address];[place] | | | | | | [address] | | | | + + + + + + + + | Specimen | + + | Blood | + + + + + + + | Performing | Address | City/State/Zipcode | Phone Number | | Organization | | | | + + + + + | [facility] | [address] | [place] [address] | [phone] | + + + + + Comprehensive [...] 5 (L)Comment: GFR <60: | >60 | [facility] | | | GFR | [...] | | | | | | MDRD [facility] traceable | | | | | | equation.Testing | | | | | | performed at [facility];[address] | | | | | | [facility];[place], [place] | | | | | | [address] | | | | + + + + + + + + | Specimen | + + | Blood | + + + + + + + | Performing | Address | City/State/Zipcode | Phone Number | | Organization | | | | + + + + + | [facility] | [address] | [place] [address] | [phone] | + + + + + , [...] DAWNA | | | | performed at [facility];[address] | | LABORATORY | | | | [address];[place] | | | | | | [address] | | | | + + + + + + + + | Specimen | + + | Blood | + + + + + + + | Performing | Address | City/State/Zipcode | Phone Number | | Organization | | | | + + + + + | [facility] | [address] | [place] [address] | [phone] | + + + + + Anesthesia [...] | | | | | performed at [facility];[address] | | | | | | [facility];[place], [place] | | | | | | [address] | | | | + + + + + + + + | Specimen | + + | Blood | + + + + + + + | Performing | Address | City/State/Zipcode | Phone Number | | Organization | | | | + + + + + | [facility] | [address] | [place] [address] | [phone] | + + + + + VAS [...] Volume flow: 914 cc/min: Diameter: 7.6 mm. [place] loop: | | | PSV: 52 cm/sec. [...] 914 cc/min: Diameter: 7.6 mm. | | [place] loop: PSV: 52 cm/sec. Volume flow: 236 [...] +--------+ +---------+--------+ | MEDICARE | MEDICA | [id number] | Effect | [phone] | | Medica | | | RE | | elizabeth | 5 | | re | | | PART A | | for | | | | | | | | all | | | | | | | | dates | | | | + +--------+ +--------+ +---------+--------+ | BCBS | BCBS | [id number] | 11/10/19 | | | PPO | | | FEDERA | | 16-Pre | | | | | | L FEP | | sent | | | | + +--------+ +--------+ +---------+--------+ | MEDICARE | MEDICA | [id number] | | [phone] | | Medica | | | RE | | 015-Pr | 5 | | re | | | PART A | | esent | | | | + +--------+ +--------+ +---------+--------+ | BCBS | BCBS | [id number] | 11/10/19 | | | PPO | [...] | | [address] | | Line | al/Fam | | 1979 | [id number] | [place], [place] | | | caesar | | | 9 (Home) | [address] | + +--------+ +--------+ + + | Ramona Oconnor | Person | Self [birth year] | [address] | | Lien | al/Fam | | 1979 | [id number] | [place], [place] | | | caesar | | | 9 (Home) | [address] | + +--------+ +--------+ + + Advance Directives Patient has advance care planning documents, and code status on file. For more information, please contact:[facility] [place] [address] + + + + + | Code Status | Date | Date | Comments | | | Activated | Inactivated | | + + + + + | Full Code | 07/08/2019 | 07/08/2019 | | | | 14:29 | 17:52 | | + + + + +
--- OUTSIDE RECORDS SUMMARY | ~2019-08-22 | XMS | Encounter Summary ---
Demographics + + + | Address | [address] | | | [place] [address] | + + + | Home Phone | | + + + | Preferred Language | Unknown | + + + | Marital Status | | + + + | Sabianism Affiliation | Unknown | + + + | Race | Unknown | + + + | Ethnic Group | Unknown | + + + Author + + + | Author | [facility] | | | and [place] | + + + | Organization | [facility] | | | and [place] | + + + | Address | Unknown | + + + | Phone | Unavailable | + + + Support + + + + + | Name | Relationship | Address | Phone | + + + + + | Lyubov Smalls | ECON | [place], [place] | | | | | [address] | | + + + + + | Lydia Palm | ECON | [place], [place] | | | | | [address] | | + + + + + | melinda britton | ECON | [place], [place] | | | "[place]" | | [address] | | + + + + + | Jose C Mejia | ECON | [address] | | | | | [place] | | | | | [address] | | + + + + + Care Team Providers + +------+ + | Care Truant Officer Name | Role | Phone | [...] | | | | | | | ([facility]) Wound | | | | [...] + + | 07/08/ | Anesthesia | [facility] | Claudia Cobb | | | 2019 | Event | [facility] | K, PRINT AND PATTERN DESIGNER [address] | | | | | [address] [place], [place] | | | | | [facility] | [id number] | | | | | [place], [place] | | | | | | [address] | | | | | | [phone] | | | +--------+ + + + + Anesthesia Record + + + + + | Procedure Name | Responsible | Anesthesia Start | Anesthesia Stop Time | | | Anesthesiologist | Time | | + + + + + | LEFT AXILLA WOUND | Claudia Cobb, | 07/08/19 1147 | 07/08/19 1302 | | DEBRIDEMENT, WASHOUT | PRINT AND PATTERN DESIGNER | | | | AND POSSIBLE WOUND | | | | | VAC PLACEMENT (Left | | | | | Knee) | | | | + + + + + +----+---+ + + | Da | T | Event | Comment | | te | i | | | | | m | | | | | e | | | +----+---+ + + | 08 | 1 | | | | /2 | 1 | | | | 9/ | 2 | | | | 20 | 6 | | | | 19 | | | | +----+---+ + + | | 1 | An Start | Reassessment prior to anesthesia induction/procedure. | | | 1 | | | | | 4 | | | | | 7 | | | +----+---+ + + | | 1 | Quick Note | Patient moved self to OR table. Patient expresses comfort with | | | 1 | | position and orientation. Patient expresses comfort with head and | | | 4 | | neck. All ASA monitors applied. Pre-Oxygenation started. | | | 9 | | | +----+---+ + + | | 1 | An | | | | 1 | Induction | | | | 5 | | | | | 3 | | | +----+---+ + + | | 1 | An | | | | 1 | Intubation | | | | 5 | | | | | 4 | | | +----+---+ + + | | 1 | Quick Note | The patient's head and neck are in the same position of comfort | | | 1 | | that she indicated prior to induction. They are being | | | 5 | | appropriately supported by a pillow. | | | 6 | | | +----+---+ + + | | 1 | Antibiotic | | | | 2 | Given | | | | 0 | | | | | 0 | | | +----+---+ + + | | 1 | Quick Note | Patient's hemodialysis catheter was without a dressing. Patient | | | 2 | | stated she forgot to dress it this morning. Cleaned the catheter | | | 0 | | with chloraprep and the surrounding skin. Placed a biopatch. | | | 3 | | Placed a tegaderm. This was done in sterile fashion. | +----+---+ + + | | 1 | First | | | | 2 | Inc/Proc St | | | | 1 | | | | | 8 | | | +----+---+ + + | | 1 | Quick Note | Vital signs were not pulling across from monitor. Planned to | | | 2 | | return to OR to fill in the vitals but the monitor had been reset | | | 3 | | accidentally during cleaning. Patient's vital signs were stable | | | 7 | | during this period. | +----+---+ + + | | 1 | Quick Note | Awaiting wound vac to OR | | | 2 | | | | | 4 | | | | | 6 | | | +----+---+ + + | | 1 | Extubation/ | | | | 2 | Airway LDA | | | | 5 | Removal | | | | 9 | | | +----+---+ + + | | 1 | an stop | | | | 2 | data | | | | 5 | | | | | 9 | | | +----+---+ + + | | 1 | Quick Note | Vital signs were not pulling across from monitor. Planned to | | | 2 | | return to OR to fill in the vitals but the monitor had been reset | | | 5 | | accidentally during cleaning. Patient's vital signs were stable | | | 9 | | during this period. | +----+---+ + + | | 1 | An Stop | Patient handed off to recovery nurse. | | | 0 | | | | | 2 | | | +----+---+ + + +------+ | Meds | +------+ + + + | Name | Total | + + + | fentaNYL | 150 mcg | + + + | lidocaine 2% | 50 mg | + + + | propofol | 180 mg | + + + | ondansetron | 4 mg | + + + | dexamethasone | 4 mg | + + + | ePHEDrine | 15 mg | + + + | phenylephrine | 450 mcg | + + + | scopolamine TD | 1 patch | + + + | vasopressin (VASOSTRICT) | 1.5 Units | | injection | | + + + | glycopyrrolate | 0.1 mg | + + + | ceFAZolin in dextrose (ANCEF) | 2 g | | IVPB 2 g | | + + + | NS (Infusion) | 200 mL | + + + + + | Name | + + | N2O Flow Rate (L/Min) | + + | O2 Flow Rate (L/Min) | + + | Insp O2 | + + | Exp N2O | + + | Exp SEV | + + | Exp LEONARD | + + | Air Flow Rate (L/Min) | + + + + | No blood administrations on file. | + + +--------+ + + + | Type | Details | Placement | Removal | +--------+ + + + | Periph | 02/23/19; 1716; Right; Medial; | 02/23/191715 by | | | eral | Forearm; [id number] catheter | Brandin Gray RN | | | IV | system; 22 gauge; 1; rfa; | | | | | distraction, appears comfortable | | | +--------+ + + + | Wound | 07/08/19; 1049; Y; Other; Left; | 07/08/19 1049 by | 07/08/19 1526 by | | | axilla (axilla); dressing present | Stepan Verdin, | Merary Springer RN | | | on arriaval; Healing; 07/08/19; | RN | | | | 1526 | | | +--------+ + + + | Airway | Placement Date: 07/08/19; | 07/08/19 1154 by | 07/08/19 1259 by | | | Placement Time: 1154 (created via | Claudia Cobb, | Claudia Cobb, | | | procedure documentation); Mask | PRINT AND PATTERN DESIGNER | PRINT AND PATTERN DESIGNER | | | Ventilation: N/A; Attempts: 1; | | | | | Airway Type: laryngeal mask; | | | | | Size: 4; Trauma: none; Placement | | | | | Check: exhaled CO2 detection | | | | | device, bilateral chest rise, | | | | | breath sounds equal bilaterally; | | | | | Removal Date: 07/08/19; Removal | | | | | Time: 1259 | | | +--------+ + + + | Drain/ | 07/08/19; 1250; #1; Left; upper; | 07/08/19 1250 by | 07/08/19 1526 by | | Device | arm; wound vac; expected removal | Sally Peres, | Merary Springer RN | | Site | post discharge; 07/08/19; 1526 | RN | | +--------+ + + + | Wound | 07/08/19; 1325; Incision; Left; | 07/08/19 1325 by | 07/08/19 1526 by | | | arm; 07/08/19; 1526 | Sally Peres, | Merary Springer RN | | | | RN | | +--------+ + + + documented [...] + documented as of this encounter Results Anesthesia Airway Note (07/08/2019 12:14 PDT) + [...] Performing provider: Claudia Cobb, | | | PRINT AND PATTERN DESIGNER Please see intraoperative grid for any additional [...] any additional medication documentation. | + + documented in this encounter Visit Diagnoses Not on filedocumented in this encounter Administered Medications + +--------+ +------+------+------+ | Medication Order | MAR | Action | Dose | Rate | Site | | | Action | Date | | | | + +--------+ +------+------+------+ | ceFAZolin in dextrose (ANCEF) | Given | 07/08/20 | 2 g | | | | IVPB 2 g 2 g, Intravenous, | | 19 12:00 | | | | | Administer over 30 Minutes, Prior | | PDT | | | | | to Incision, Starting Nina | | | | | | | 07/08/19 at 1025, For 1 dose, Keep | | | | | | | in refrigerator., Pre-op, | | | | | | | Indications: Surgical Prophylaxis | | | | | | + +--------+ +------+------+------+ +---+---+ | | | +---+---+ + +-------+ +------+---+---+ | dexamethasone (DECADRON) 4 | Given | 07/08/20 | 4 mg | | | | mg/mL injection Intravenous, | | 19 11:57 | | | | | PRN, Starting [facility] 07/08/19 at | | PDT | | | | | 1157, Anesthesia Intra-op | | | | | | + +-------+ +------+---+---+ +---+---+ | | | +---+---+ + +-------+ +-------+---+---+ | ePHEDrine in saline 5 mg/mL IV | Given | 07/08/20 | 15 mg | | | | syringe Intravenous, PRN, | | 19 12:03 | | | | | Starting [facility] 07/08/19 at 1203, | | PDT | | | | | Anesthesia Intra-op | | | | | | + +-------+ +-------+---+---+ +---+---+ | | | +---+---+ + +-------+ +--------+---+---+ | fentaNYL (PF) injection | Given | 07/08/20 | 50 mcg | | | | Intravenous, PRN, Starting Nina | | 19 12:44 | | | | | 07/08/19 at 1208, Anesthesia | | PDT | | | | | Intra-op | | | | | | + +-------+ +--------+---+---+ +-------+ +--------+---+---+ | Given | 07/08/20 | 25 mcg | | | | | 19 12:17 | | | | | | PDT | | | | +-------+ +--------+---+---+ | Given | 07/08/20 | 25 mcg | | | | | 19 12:16 | | | | | | PDT | | | | +-------+ +--------+---+---+ +---+---+ | | | +---+---+ + +-------+ +--------+---+---+ | glycopyrrolate (ROBCHARLESUL) | Given | 07/08/20 | 0.1 mg | | | | injection Intravenous, PRN, | | 19 12:16 | | | | | Starting Nina 07/08/19 at 1216, | | PDT | | | | | Anesthesia Intra-op | | | | | | + +-------+ +--------+---+---+ +---+---+ | | | +---+---+ + +-------+ +-------+---+---+ | lidocaine (PF) 2% injection | Given | 07/08/20 | 50 mg | | | | Intravenous, PRN, Starting Nina | | 19 11:53 | | | | | 07/08/19 at 1153, Anesthesia | | PDT | | | | | Intra-op | | | | | | + +-------+ +-------+---+---+ +---+---+ | | | +---+---+ + +-------+ +------+---+---+ | ondansetron (ZOFRAN) injection | Given | 07/08/20 | 4 mg | | | | Intravenous, PRN, Starting Nina | | 19 12:42 | | | | | 07/08/19 at 1242, Anesthesia | | PDT | | | | | Intra-op | | | | | | + +-------+ +------+---+---+ +---+---+ | | | +---+---+ + +-------+ +--------+---+---+ | phenylephrine (PONCHO-SYNEPHRINE, | Given | 07/08/20 | 50 mcg | | | | VAZCULEP) 10 mg per mL injection | | 19 12:19 | | | | | Intravenous, PRN, Starting Nina | | PDT | | | | | 07/08/19 at 1156, Anesthesia | | | | | | | Intra-op | | | | | | + +-------+ +--------+---+---+ +-------+ +---------+---+---+ | Given | 07/08/20 | 100 mcg | | | | | 19 12:10 | | | | | | PDT | | | | +-------+ +---------+---+---+ | Given | 07/08/20 | 200 mcg | | | | | 19 12:00 | | | | | | PDT | | | | +-------+ +---------+---+---+ +---+---+ | | | +---+---+ + +-------+ +-------+---+---+ | propofol (DIPRIVAN) injection | Given | 07/08/20 | 20 mg | | | | Intravenous, PRN, Starting Nina | | 19 12:47 | | | | | 07/08/19 at 1153, Anesthesia | | PDT | | | | | Intra-op | | | | | | + +-------+ +-------+---+---+ +-------+ +--------+---+---+ | Given | 07/08/20 | 20 mg | | | | | 19 12:45 | | | | | | PDT | | | | +-------+ +--------+---+---+ | Given | 07/08/20 | 140 mg | | | | | 19 11:53 | | | | | | PDT | | | | +-------+ +--------+---+---+ +---+---+ | | | +---+---+ + +-------+ +---------+---+---+ | scopolamine (TRANSDERM-SCOP) 1 | Given | 07/08/20 | 1 patch | | | | mg/3 days Transdermal, PRN, | | 19 11:49 | | | | | Starting Nina 07/08/19 at 1149, | | PDT | | | | | Anesthesia Intra-op | | | | | | + +-------+ +---------+---+---+ +---+---+ | | | +---+---+ + +---------+ +---+---+---+ | sodium chloride 0.9% (NS) | New Bag | 07/08/20 | | | | | infusion Intravenous, CONTINUOUS | | 19 11:40 | | | | | PRN, Starting Nina 07/08/19 at | | PDT | | | | | 1140, Anesthesia Intra-op | | | | | | + +---------+ +---+---+---+ +---+---+ | | | +---+---+ + +-------+ +-------+---+---+ | vasopressin (VASOSTRICT) | Given | 07/08/20 | 0.5 | | | | injection PRN, Starting Nina | | 19 12:19 | Units | | | | 07/08/19 at 1210, Anesthesia | | PDT | | | | | Intra-op | | | | | | + +-------+ +-------+---+---+ +-------+ +---------+---+---+ | Given | 07/08/20 | 1 Units | | | | | 19 12:10 | | | | | | PDT | | | | +-------+ +---------+---+---+ +---+---+ | | | +---+---+ documented in this encounter
--- OUTSIDE RECORDS SUMMARY | ~2019-08-22 | XMS | Encounter Summary ---
Demographics + + + | Address | [address] | | | [place] [address] | + + + | Home Phone | | + + + | Preferred Language | Unknown | + + + | Marital Status | | + + + | Samaritan Affiliation | Unknown | + + + | Race | Unknown | + + + | Ethnic Group | Unknown | + + + Author + + + | Author | [facility] (Historical as of | | | 06-26-19) | + + + | Organization | [facility] (Historical as of | | | 06-26-19) | + + + | Address | Unknown | + + + | Phone | Unavailable | + + + Support + + + + + | Name | Relationship | Address | Phone | + + + + + | Lyubov Smalls | ECON | [place], [place] | | | | | [address] | | + + + + + | Lydia Palm | ECON | [place], [place] | | | | | [address] | | + + + + + | Jose C Oconnor | ECON | [address] | | | | | [place] | | | | | [address] | | + + + + + Care Team Providers + +------+ + | Care Bandsaw Operator Name | Role | Phone | [...] + + | 06/14/ | Telephone | [facility] | Kylie Alves DNP | Other | | 2019 | | Vascular Surgery | [address] | | | | | [address] | [facility] | | | | | [facility] [place] | [address] | | | | | [address] | | | | | | [phone] | | | +--------+ + + + [...]
--- OUTSIDE RECORDS SUMMARY | ~2019-08-22 | XMS | Encounter Summary ---
Demographics + + + | Address | [address] | | | [place] [address] | + + + | Home Phone [...] [place], [place] | | | | | [address] | | + + + + + | Lydia Palm | ECON | [place], [place] | | | | | [address] | | + + + + + | melinda britton | ECON | [place], [place] | | | "[place]" | | [address] | | + + + + + | Jose C Mejia | ECON | [address] | | | | | [place] | | | | | [address] | | + + + + + Care Team Providers + +------+ + | Care Dean Of Graduate Studies Name | Role | Phone | + [...] + + | 07/09/ | Telephone | [facility] | Marixa Mendoza, | Follow-up | | 2018 | | VASCULAR SURGERY | Slitter Helper | | | | | [address] | | | | | | [place] | | | | | | [address] | | | | | | [phone] | | | +--------+ + + + [...]
--- OUTSIDE RECORDS SUMMARY | ~2019-08-22 | XMS | Encounter Summary ---
Demographics + + + | Address | [address] | | | [place] [address] | + + + | Home Phone | | + + + | Preferred Language | Unknown | + + + | Marital Status | | + + + | Yarsani Affiliation | Unknown | + + + | Race | Unknown | + + + | Ethnic Group | Unknown | + + + Author + + + | Author | [facility] | | | and [place] | + + + | Organization | [facility] | | | and [place] | + + + | Address | Unknown | + + + | Phone | Unavailable | + + + Support + + + + + | Name | Relationship | Address | Phone | + + + + + | Lyubov Smalls | ECON | [place], [place] | | | | | [address] | | + + + + + | Lydia Palm | ECON | [place], [place] | | | | | [address] | | + + + + + | melinda britton | ECON | [place], [place] | | | "[place]" | | [address] | | + + + + + | Jose C Mejia | ECON | [address] | | | | | [place] | | | | | [address] | | + + + + + Care Team Providers + +------+ + | Care Customs Consultant Name | Role | Phone | + +------+ + | Eileen Rick | PCP | | + +------+ + Encounter Details +--------+ + + + + | Date | Type | Department | Care Team | Description | +--------+ + + + + | 07/06/ | Orders Only | [facility] | Qasim Pederson MD | ESRD on dialysis | | 2019 | | VASCULAR SURGERY | [address] | ([facility]) (Primary Dx); | | | | [address] | [place] [facility] [place] | Wound infection | | | | [place] [facility] [place] | [address] | after surgery | | | | [address] | | | | | | [phone] | | | +--------+ + + + [...]
--- OUTSIDE RECORDS SUMMARY | ~2019-08-22 | XMS | Encounter Summary ---
Demographics + + + | Address | [address] | | | [place] [address] | + + + | Home Phone | | + + + | Preferred Language | Unknown | + + + | Marital Status | | + + + | Buddhist Affiliation | Unknown | + + + | Race | Unknown | + + + | Ethnic Group | Unknown | + + + Author + + + | Author | [facility] | | | and [place] | + + + | Organization | [facility] | | | and [place] | + + + | Address | Unknown | + + + | Phone | Unavailable | + + + Support + + + + + | Name | Relationship | Address | Phone | + + + + + | Lyubov Smalls | ECON | [place], [place] | | | | | [address] | | + + + + + | Lydia Palm | ECON | [place], [place] | | | | | [address] | | + + + + + | melinda britton | ECON | [place], [place] | | | "[place]" | | [address] | | + + + + + | Jose C Mejia | ECON | [address] | | | | | [place] | | | | | [address] | | + + + + + Care Team Providers + +------+ + | Care Candy Cutter Machine Name | Role | Phone | + +------+ + | No, Physician | PCP | Unavailable | + +------+ + Reason for Visit + + + | Reason | Comments | + + + | Abdominal Pain | started yesterday | + + + Encounter Details +--------+ + + + + | Date | Type | Department | Care Team | Description | +--------+ + + + + | 08/10/ | Emergency | [facility] | Farhad Lee, | End stage renal | | 2019 | | [facility] | ARLYN [address] | disease on dialysis | | | | EMERGENCY CENTER | [place] [address] | (HCC) (Primary Dx); | | | | [address] | [phone] | Hyperkalemia; | | | | [place], [place] | | Generalized | | | | [address] | Sher Alex, | abdominal pain; | | | | [phone] | DO [address] | Ovarian mass | | | | | [place] [address] | | | | | | [phone] | | | | | | | [...] + | Blood Pressure | 128/58 | 08/10/20192 PDT | + + + + | [...] | 87 kg (191 lb 12.8 | 08/10/20191308 PDT | | | oz) | | + + + + | Height | - | - | + + + + | Body Mass Index | 35.08 | 07/08/2019 1028 PDT | + + + + documented in this encounter Discharge Instructions Instructions Farhad Lee PA-C - 08/10/2019There is also incidental findings of an enl arged ovarian mass that is grown in size versus prior imaging. It is recommended by radiolo gy that you obtain an outpatient MRI with contrast. Given that contrast is metabolized thro ugh the kidneys this needs to be scheduled with your primary care provider in coordination w ith your dialysis. AttachmentsThe following attachments cannot be sent through Care Everywhere.Abdominal Pain, Adult (Cape Verdean)documented in this encounter Medications at Time of [...] hours | tablet | | 19 | | | ophen (NORCO) 5-325 | [...] Admin | | | | | | 800 mg tablet | Instructions. [...] tablet by | 6 | 0 | 08/10/20 | | | HYDROcodone-acetamin | mouth every 6 hours | tablet | | 19 | 9 | | ophen (NORCO) 5-325 | as needed for Pain | | | | | | mg per tablet | for up to 3 days. | | | | | + [...] | +--------+ + + + + + +--------+ + + | Name | Priori | Associated Diagnoses | Date/Time | | | ty | | | + +--------+ + + | ED INFORMATION EXCHANGE | Routin | | 08/10/2019 12:55 PDT | | | e | | | + +--------+ + + documented as of [...] + + documented in this encounter Results ECG 12 lead (08/10/2019 15:16 PDT) + + + + + + [...] (500), | | | | | | editor news Rashel Polanco | | | | | [...] catheter. Signed by: | | | Bianka Glez, Demar Sign Date/Time: 08/10/2019 2:50 PM | | [...] | | + +---------+ + + Lipase (08/10/2019 13:40 PDT) + + + + + + | Component | Value | Ref Range | Performed | Pathologist | | | | | At | Signature | + + + + + + | Lipase | 83 (H)Comment: Testing | 12 - 53 U/L | [facility] | | | | performed at [facility] | | LABORATORY | | | | [address];[place], [place] | | | | | | [address] | | | | + + + + + + + + | Specimen | + + | Blood | + + + + + + + | Performing | Address | City/State/Zipcode | Phone Number | | Organization | | | | + + + + + | [facility] | [address] | [place] [address] | [phone] | + + + + + Comprehensive [...] (L) | 10 - 65 U/L | [facility] | | | | | | LABORATORY | | + + + + + + | Estimated | 5 (L)Comment: GFR <60: | >60 | [facility] | | | GFR | [...] | | | | | | [facility] traceable | | | | | | equation.Testing | | | | | | performed at [facility] | | | | | | [address];[place], [place] | | | | | | [address] | | | | + + + + + + + + | Specimen | + + | Blood | + + + + + + + | Performing | Address | City/State/Zipcode | Phone Number | | Organization | | | | + + + + + | [facility] | [address] | [place] [address] | [phone] | + + + + + CBC with Differential (08/10/2019 13:40 PDT) + + + + [...] | Absolute | performed at [facility] | [address] | LABORATORY | | | | [address];[place], [place] | | | | | | [address] | | | | + + + + + + + + | Specimen | + + | Blood | + + + + + + + | Performing | Address | City/State/Zipcode | Phone Number | | Organization | | | | + + + + + | [facility] | [address] | [place] [address] | [phone] | + + + + + documented in this encounter Visit Diagnoses + + | Diagnosis | + + | End stage renal disease on dialysis (HCC) - Primary End stage renal disease | + + | Hyperkalemia Hyperpotassemia | + + | Generalized abdominal pain Abdominal pain, generalized | + + | Ovarian mass Unspecified noninflammatory disorder of ovary, fallopian tube, and broad | | ligament | + + documented in this encounter Administered Medications + +--------+ +------+------+------+ | Medication Order | MAR | Action | Dose | Rate | Site | | | Action | Date | | | | + +--------+ +------+------+------+ | morphine injection 4 mg 4 mg, | Given | 08/10/20 | 4 mg | | | | Intravenous, EVERY 1 HOUR PRN, | | 19 15:32 | | | | | Pain, Starting 08/10/19 at | | PDT | | | | | 1326, For 2 doses | | | | | | + +--------+ +------+------+------+ +-------+ +------+---+---+ | Given | 08/10/20 | 4 mg | | | | | 19 13:41 | | | | | | PDT | | | | +-------+ +------+---+---+ +---+---+ | | | +---+---+ + +-------+ +------+---+---+ | ondansetron (ZOFRAN) injection | Given | 08/10/20 | 4 mg | | | | 4 mg 4 mg, Intravenous, EVERY 1 | | 19 13:41 | | | | | HOUR PRN, Nausea, Starting Tue | | PDT | | | | | 08/10/19 at 1326, For 2 doses | | | | | | + +-------+ +------+---+---+ +---+---+ | | | +---+---+ documented in this encounter
--- OUTSIDE RECORDS SUMMARY | ~2019-08-22 | XMS | Encounter Summary ---
Demographics + + + | Address | [address] | | | [place] [address] | + + + | Home Phone | | + + + | Preferred Language | Unknown | + + + | Marital Status | | + + + | Hindu Affiliation | Unknown | + + + | Race | Unknown | + + + | Ethnic Group | Unknown | + + + Author + + + | Author | [facility] | | | and [place] | + + + | Organization | [facility] | [...] [place], [place] | | | | | [address] | | + + + + + | Lydia Palm | ECON | [place], [place] | | | | | [address] | | + + + + + | melinda britton | ECON | [place], [place] | | | "[place]" | | [address] | | + + + + + | Jose C Mejia | ECON | [address] | | | | | [place] | | | | | [address] | | + + + + + Care Team Providers + +------+ + | Care Conservation Scientist Name | Role | Phone | + +------+ + | No, Physician | PCP | Unavailable | + +------+ + Reason for Visit + + + | Reason | Comments | + + + | Rx/Medication Pick | | | Up | | + + + Encounter Details +--------+ + + + + | Date | Type | Department | Care Team | Description | +--------+ + + + + | 08/11/ | Telephone | [facility] | Nidhi Whitaker, | Rx/Medication Pick | | 2019 | | VASCULAR SURGERY | RN | Up | | | | [address] | | | | | | [place] | | | | | | [address] | | | | | | [phone] | | | +--------+ + + + [...]
--- OUTSIDE RECORDS SUMMARY | ~2019-08-22 | XMS | Encounter Summary ---
Demographics + + + | Address | [address] | | | [place] [address] | + + + | Home Phone [...] [place], [place] | | | | | [address] | | + + + + + | Lydia Palm | ECON | [place], [place] | | | | | [address] | | + + + + + | melinda britton | ECON | [place], [place] | | | "[place]" | | [address] | | + + + + + | Jose C Mejia | ECON | [address] [place] | | | | | [place] | | | | | [address] | | + + + + + Care Team Providers + +------+ + | Care Casing Material Weigher Name | Role | Phone | + +------+ + | Juan F Whitley DO | PCP | | + +------+ + Encounter Details +--------+ + + + + | Date | Type | Department | Care Team | Description | +--------+ + + + + | 05/26/ | Hospital | [facility] | Qasim Ryan MD | | | 2019 - | Encounter | [facility] | [address] | | | | | CLINICAL DECISION | [address] [place] | | | 05/27/ | | [facility] | [address] | | | 2019 | | [place] | | | | | | [address] | | | | | | [phone] | | | +--------+ + + + [...] 05/27/196 Date of Service: 05/27/191144 Status: Signed Nuclear Operations Specialist: Karen Charlton RN (Registered Nurse) Discharge instructions discussed with patient and family. All questions and concerns answer ed, in home wound care to follow up. Patient stable at time of discharge. IV removed and ban dage applied. All belongings with patient. Patient discharged via ambulation to private [facility] with family. onversio n Transaction, Provider Unknown - 05/27/2019749 PDTFormatting of this note might be differ ent from the original. Nurse Progress Note by Zhane Ghotra RN at 05/27/19749 Author: Zhane Ghotra RN Service: (none) Author Type: Registered Nurse Filed: 05/27/1936 Date of Service: 05/27/19749 Status: Signed Nuclear Operations Specialist: Zhane Ghotra RN (Registered Nurse) Pt awaken [...] Progress Note by Nadege Gupta RN at 05/27/1917 Author: Nadege Gupta RN Service: (none) Author Type: Registered Nurse Filed: 05/27/19 0555 Date of Service: 05/27/19553 Status: Signed Nuclear Operations Specialist: Nadege Gupta RN (Registered Nurse) End of shift chart audit complete. onversio n Transaction, Provider Unknown - 05/27/2019139 PDTFormatting of this note might be differ ent from the original. Pharmacy Note by Shelli Bustos RPH at 05/27/19139 Author: Shelli Bustos RPH Service: Pharmacy Author Type: Pharmacist Filed: 05/27/19139 Date of Service: 05/27/19139 Status: Signed Nuclear Operations Specialist: Shelli Bustos RPH (Pharmacist) Clinical Pharmacy Note: [...] 05/27/19600 Date of Service: 05/26/192199 Status: Signed Nuclear Operations Specialist: Nadege Gupta RN (Registered Nurse) Patient ambulated [...] 05/26/191841 Date of Service: 05/26/191839 Status: Signed Nuclear Operations Specialist: Richard Alvarez RN (Registered Nurse) Patient in [...] portable unit 1814> Unable to locate a [facility] portable unit in house per tony OR paul. Have [facility] portabl e unit on hand. Was told to contact Dr Ryan for orders to change unit OR would need admission for night until [facility] could deliver portable unit. Call to Dr [...] | | | | | | MDRD [facility] traceable | | | | | | equation.Testing | | | | | | performed at [facility];[address] | | | | | | [facility];[place], [place] | | | | | | [address] | | | | + + + [...] | | | QUALITATIVE | performed at [facility] | | LAB | | | | Maksim Agarwal;[place] | | | | | | [address] | | | | + + + [...] | | | | | | MDRD [facility] traceable | | | | | | equation.Testing | | | | | | performed at [facility] | | | | | | [facility];[place], [place] | | | | | | [address] | | | | + + + [...]
--- OUTSIDE RECORDS SUMMARY | ~2019-08-22 | XMS | Encounter Summary ---
Demographics + + + | Address | [address] | | | [place] [address] | + + + | Home Phone | | + + + | Preferred Language | Unknown | + + + | Marital Status | | + + + | Methodist Affiliation | Unknown | + + + | Race | Unknown | + + + | Ethnic Group | Unknown | + + + Author + + + | Author | [facility] | | | and [place] | + + + | Organization | [facility] | | | and [place] | + + + | Address | Unknown | + + + | Phone | Unavailable | + + + Support + + + + + | Name | Relationship | Address | Phone | + + + + + | Lyubov Smalls | ECON | [place], [place] | | | | | [address] | | + + + + + | Lydia Palm | ECON | [place], [place] | | | | | [address] | | + + + + + | melinda britton | ECON | [place], [place] | | | "[place]" | | [address] | | + + + + + | Jose C Mejia | ECON | [address] | | | | | [place] | | | | | [address] | | + + + + + Care Team Providers + +------+ + | Care Assurance Officer Name | Role | Phone | [...] + + | 07/06/ | Telephone | [facility] | Nidhi Whitaker, | Appointment | | 2018 | | VASCULAR SURGERY | RN | | | | | [address] | | | | | | [place] | | | | | | [address] | | | | | | [phone] | | | +--------+ + + + [...]
--- OUTSIDE RECORDS SUMMARY | ~2019-08-22 | XMS | Encounter Summary ---
Demographics + + + | Address | [address] | | | [place] [address] | + + + | Home Phone | | + + + | Preferred Language | Unknown | + + + | Marital Status | | + + + | Denominational Affiliation | Unknown | + + + | Race | Unknown | + + + | Ethnic Group | Unknown | + + + Author + + + | Author | [facility] (Historical as of | | | 06-26-19) | + + + | Organization | [facility] (Historical as of | | | 06-26-19) | + + + | Address | Unknown | + + + | Phone | Unavailable | + + + Support + + + + + | Name | Relationship | Address | Phone | + + + + + | Lyubov Smalls | ECON | [place], [place] | | | | | [address] | | + + + + + | Lydia Palm | ECON | [place], [place] | | | | | [address] | | + + + + + | Jose C Oconnor | ECON | [address] | | | | | [place] | | | | | [address] | | + + + + + Care Team Providers + +------+ + | Care Hydraulic Dredge Operator Name | Role | Phone | + +------+ + | Eileen Rick | PCP | | + +------+ + Encounter Details +--------+ + + + + | Date | Type | Department | Care Team | Description | +--------+ + + + + | 05/28/ | Telephone | [facility] | Marixa Mendoza, | | | 2019 | | Vascular Surgery | [facility] | | | | | [address] | | | | | | [place] | | | | | | [address] | | | | | | [phone] | | | +--------+ + + + [...] Treatment Not on fileas of this encounter Results US hemodialysis access fistula or graft (06/21/2019 3:55 [...] UV HEMODIALYSIS ACCESS DUPLEX-COMPLICATIONS CLINICAL INFORMATION: | [facility] | | Left axillary artery to axillary [...] Volume flow: 914 cc/min: Diameter: 7.6 mm. [place] loop: | | | PSV: 52 cm/sec. [...] cm/sec. Volume flow: 914 cc/min: Diameter: 7.6 mm.[place] loop: PSV: 52 cm/sec. | | Volume [...] flow: 914 cc/min: Diameter: 7.6 mm. | |[place] loop: PSV: 52 cm/sec. Volume flow: 236 [...] | + + + + + | [facility] | [address] | [place] [address] | | + + + + + in this encounter Visit Diagnoses + + | Diagnosis | + + | ESRD (end stage renal disease) on dialysis (HCC) - Primary | + + | End stage renal disease | + +"
--- OUTSIDE RECORDS SUMMARY | ~2019-08-22 | XMS | Encounter Summary ---
Demographics + + + | Address | [address] | | | [place] [address] | + + + | Home Phone | | + + + | Preferred Language | Unknown | + + + | Marital Status | | + + + | Jain Affiliation | Unknown | + + + | Race | Unknown | + + + | Ethnic Group | Unknown | + + + Author + + + | Author | [facility] | | | and [place] | + + + | Organization | [facility] | | | and [place] | + + + | Address | Unknown | + + + | Phone | Unavailable | + + + Support + + + + + | Name | Relationship | Address | Phone | + + + + + | Lyubov Smalls | ECON | [place], [place] | | | | | [address] | | + + + + + | Lydia Palm | ECON | [place], [place] | | | | | [address] | | + + + + + | melinda britton | ECON | [place], [place] | | | "[place]" | | [address] | | + + + + + | Jose C Mejia | ECON | [address] [place] | | | | | [place] | | | | | [address] | | + + + + + Care Team Providers + +------+ + | Care Online Marketing Specialist Name | Role | Phone | + +------+ + | No, Physician | PCP | Unavailable | + +------+ + Encounter Details +--------+ + + + + | Date | Type | Department | Care Team | Description | +--------+ + + + + | 06/21/ | Orders Only | [facility] | Kylie Alves DNP | | | 2019 | | VASCULAR SURGERY | [address] | | | | | ULTRASOUND [address] | [place] | | | | | [address] | [address] | | | | | [place] | | | | | | [address] | | | | | | [phone] | | | +--------+ + + + [...] + +--------+ + + + | [facility]AS [facility] | Routin | 06/21/2019 | | Results for this | | GRAFT FISTULA | e | 15:55 PDT | | procedure are in the | | | | | | results section. | + +--------+ + + + documented in this encounter Results VAS Hemodialysis Graft Fistula (06/21/2019 15:55 PDT) [...] Volume flow: 914 cc/min: Diameter: 7.6 mm. [place] loop: | | | PSV: 52 cm/sec. Volume flow: 236 cc/min: Diameter: 6 9.6 mm. | | | Efferent loop: PSV: 71 cm/sec. Volume flow: 740 cc/min: Diameter: | | | 9.1 mm. Vein outflow: 68 cm/s | | + + + + + | Procedure Note | + + | Endy, Rad Conversion - 07/16/2019 0941 PDT UV HEMODIALYSIS [...] 914 cc/min: Diameter: 7.6 mm. | | [place] loop: PSV: 52 cm/sec. Volume flow: 236 [...]
--- OUTSIDE RECORDS SUMMARY | ~2019-08-22 | XMS | Encounter Summary ---
Demographics + + + | Address | [address] | | | [place] [address] | + + + | Home Phone [...] [place], [place] | | | | | [address] | | + + + + + | Lydia Palm | ECON | [place], [place] | | | | | [address] | | + + + + + | melinda britton | ECON | [place], [place] | | | "[place]" | | [address] | | + + + + + | Jose C Mejia | ECON | [address] [place] | | | | | [place] | | | | | [address] | | + + + + + Care Team Providers + +------+ + | Care Treatment Manager Name | Role | Phone | [...] + + | 08/11/ | Telephone | [facility] | Nidhi Whitaker, | Rx/Medication Pick | | 2019 | | VASCULAR SURGERY | RN | Up | | | | [address] | | | | | | [place] | | | | | | [address] | | | | | | [phone] | | | +--------+ + + + [...]
--- OUTSIDE RECORDS SUMMARY | ~2019-08-22 | XMS | Encounter Summary ---
Demographics + + + | Address | [address] | | | [place] [address] | + + + | Home Phone | | + + + | Preferred Language | Unknown | + + + | Marital Status | | + + + | Protestant Affiliation | Unknown | + + + | Race | Unknown | + + + | Ethnic Group | Unknown | + + + Author + + + | Author | [facility] (Historical as of | | | 06-26-19) | + + + | Organization | [facility] (Historical as of | | | 06-26-19) | + + + | Address | Unknown | + + + | Phone | Unavailable | + + + Support + + + + + | Name | Relationship | Address | Phone | + + + + + | Lyubov Smalls | ECON | [place], [place] | | | | | [address] | | + + + + + | Lydia Palm | ECON | [place], [place] | | | | | [address] | | + + + + + | Jose C Oconnor | ECON | [place] [place] | | | | | [place] | | | | | [address] | | + + + + + Care Team Providers + +------+ + | Care Medical Office Manager Name | Role | Phone | + +------+ + | Eileen Rick | PCP | | + +------+ + Reason for Visit +--------+ + | Reason | Comments | +--------+ + | Other | May 2019-[facility] Provider Dialysis Rounding Note | +--------+ + Encounter Details +--------+ + + + + | Date | Type | Department | Care Team | Description | +--------+ + + + + | 06/15/ | Documentati | [facility] | Santos Chi MD | Other (May | | 2019 | on Only | [address] | 2018-[facility] Provider | | | | [address] | [address] [place], [place] | Dialysis Rounding | | | | [place] [address] | [address] | Note) | | | | [phone] | | | +--------+ + + + [...]
--- OUTSIDE RECORDS SUMMARY | ~2019-08-22 | XMS | Encounter Summary ---
Demographics + + + | Address | [address] | | | [place] [address] | + + + | Home Phone | | + + + | Preferred Language | Unknown | + + + | Marital Status | | + + + | Restorationist Affiliation | Unknown | + + + | Race | Unknown | + + + | Ethnic Group | Unknown | + + + Author + + + | Author | [facility] (Historical as of | | | 06-26-19) | + + + | Organization | [facility] (Historical as of | | | 06-26-19) | + + + | Address | Unknown | + + + | Phone | Unavailable | + + + Support + + + + + | Name | Relationship | Address | Phone | + + + + + | Lyubov Smalls | ECON | [place] | | | | | [address] | | + + + + + | Lydia Palm | ECON | [place], [place] | | | | | [address] | | + + + + + | Jose C Oconnor | ECON | [address] | | | | | [place] | | | | | [address] | | + + + + + Care Team Providers + +------+ + | Care Direct Chill Caster Name | Role | Phone | + +------+ + | Juan F Whitley MD | PCP | | + +------+ + Reason for Visit + + + | Reason | Comments | + + + | Follow-up | End-stage renal disease | + + + Encounter Details +--------+---------+ + + + | Date | Type | Department | Care Team | Description | +--------+---------+ + + + | 05/25/ | Office | [facility] | Kylie Alves DNP | End-stage renal | | 2019 | Visit | Vascular Surgery | [address] | disease (HCC) | | | | [address] | E DUNKIRK MD | (Primary Dx); | | | | E DUNKIRK MD | [address] | Hemodialysis access, | | | | [address] | | AV graft (HCC); | | | | [phone] | | Dehiscence of | | | | | | operative wound, | | | | | | initial encounter | +--------+---------+ + + + Social [...] + +---------+ + | Blood Pressure | 106/67 | 05/25/2019 3:53 PM PDT | + +---------+ + | Pulse | 76 | 05/25/2019 3:53 PM PDT | + +---------+ + | Temperature | - | - | + +---------+ + | Respiratory Rate | - | - | + +---------+ + | Oxygen Saturation | 98% | 05/25/2019 3:53 PM PDT | + +---------+ + | Inhaled Oxygen | - | - | | Concentration | | | + +---------+ + | Weight | - | - | + +---------+ + | Height | - | - | + +---------+ + | Body Mass Index | - | - | + +---------+ + in this encounter Progress Notes Kylie Alves DNP - 05/25/2019 4:00 PM PDTFormatting of this note may be different from the or iginal. [facility] [address] [place] [address] Office: [phone] DATE OF VISIT: 05/25/2019 PATIENT NAME: Ramona Oconnor : 1980; AGE: 39 y.o.; Sex:F PHONE NUMBER: , PROVIDER: Kylie Alves DNP PRIMARY CARE / REFERRING PHYSICIAN: Juna F Whitley MD / [facility] / [address] / [place] [address] Chief Complaint: left axillary surgical wound dehiscence with graft exposure status post left axillary arter y and axillary vein AVG creation History of Present Illness: Ramona Oconnor is a 39 y.o. female patient who is status post creation of arteriove nous graft with left axillary artery and axillary vein using 7mm Bovine carotid graft by Dr. Pederson on [...] 10/25/15 showed normal sized kidneys. She initiated FUR LINER with PD 10/28/15. 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 (gastroesophageal reflux disease) Hypercalcemia 09/07/2017 Hyperphosphatemia [...] AV FISTULA; Surgeon: Qasim Pederson MD; Location: [facility]; Service: Vascu lar; Laterality: Left; AV GRAFT CREATION Left 05/06/2019 Procedure: AV GRAFT CREATION; Surgeon: Qasim Pederson MD; Location: [facility]; Service : Vascular; Laterality: Left; bovine carotid graft CATHETER REMOVAL N/A 02/04/2019 Procedure: DIALYSIS CATHETER - REMOVAL; Surgeon: Qasim Pederson MD; Location: [facility] ; Service: Vascular; Laterality: N/A; Infected PD catheter removal dialysis port Right 01/2019 chest wall ESOPHAGOGASTRODUODENOSCOPY N/A 09/10/2017 Procedure: ESOPHAGOGASTRODUODENOSCOPY; Surgeon: Beena Peters MD; Location: [facility]; Service: Gastroenterology; Laterality: N/A; HARDWARE PRESENT PERITONEAL CATHETER INSERTION N/A 10/28/2015 Procedure: LAPAROSCOPIC - PERITONEAL DIALYSIS CATH INSERTION; Surgeon: Mundo Ramos MD; Lo cation: [facility]; Service: Vascular; Laterality: N/A; WISDOM [...] debridement, washout and wound vac placement at [facility] Oper[facility] ng Room on 05/26/2019. Kylie Alves DNP in this encounter Plan of Treatment Not on fileas of this encounter Procedures + +--------+ + + + | Procedure Name | Priori | Date/Time | Associated Diagnosis | Comments | | | ty | | | | + +--------+ + + + | CASE REQUEST | Routin | 05/25/2019 | | | | OPERATING ROOM | e | 4:49 PM | | | | | | PDT | | | + +--------+ + + + in this encounter Visit Diagnoses + + | Diagnosis | + + | End-stage renal disease (HCC) - Primary | + + | End stage renal disease | + + | Hemodialysis access, AV graft (HCC) | + + | Dehiscence of operative wound, initial encounter | + +"
--- OUTSIDE RECORDS SUMMARY | ~2019-08-22 | XMS | Encounter Summary ---
Demographics + + + | Address | [address] | | | [place] [address] | + + + | Home Phone | | + + + | Preferred Language | Unknown | + + + | Marital Status | | + + + | Judaism Affiliation | Unknown | + + + | Race | Unknown | + + + | Ethnic Group | Unknown | + + + Author + + + | Author | [email or web address] (Historical as of | | | 06-26-19) | + + + | Organization | [email or web address] (Historical as of | | | 06-26-19) | + + + | Address | Unknown | + + + | Phone | Unavailable | + + + Support + + + + + | Name | Relationship | Address | Phone | + + + + + | Lyubov Smalls | ECON | [place], [place] | | | | | [address] | | + + + + + | Lydia Palm | ECON | [place], [place] | | | | | [address] | | + + + + + | Jose C Oconnor | ECON | [address] | | | | | [place] | | | | | [address] | | + + + + + Care Team Providers + +------+ + | Care C D Reactor Operator Name | Role | Phone | + +------+ + | Eileen Rick | PCP | | + +------+ + Encounter Details +--------+ + + + + | Date | Type | Department | Care Team | Description | +--------+ + + + + | 05/26/ | Procedure | [facility] | | | | 2019 | [facility] | | | | | | Operating Room [facility] | | | | | | [facility] | | | | | | [place] [address] | | | | | | [phone] | | | +--------+ + + + [...]
--- OUTSIDE RECORDS SUMMARY | ~2019-08-22 | XMS | Encounter Summary ---
Demographics + + + | Address | [address] | | | [place] [address] | + + + | Home Phone | | + + + | Preferred Language | Unknown | + + + | Marital Status | | + + + | Zoroastrian Affiliation | Unknown | + + + [...] [place], [place] | | | | | [address] | | + + + + + | Lydia Palm | ECON | [place], [place] | | | | | [address] | | + + + + + | melinda britton | ECON | [place], [place] | | | "[place]" | | [address] | | + + + + + | Jose C Mejia | ECON | [address] | | | | | [place] | | | | | [address] | | + + + + + Care Team Providers + +------+ + | Care Project Asst Name | Role | Phone | + +------+ + | Juan F Whitley DO | PCP | | + +------+ + Encounter Details +--------+ + + + + | Date | Type | Department | Care Team | Description | +--------+ + + + + | 06/13/ | Orders Only | [facility] | Provider, | Infection and | | 2018 | | SYSTEM GENERIC OP | [address] | inflammatory | | | | CONVERSION [address] | [address] | reaction due to | | | | [address] [place], [place] | [place] [address] | peritoneal dialysis | | | | [address] | | catheter, initial | | | | [phone] | | encounter (HCC) | +--------+ + [...] | | + +--------+ + + | CBC with Differential | Routin | Infection and | 2 Occurrences | | | e | inflammatory | starting 06/25/2019 | | | | reaction due to | until 02/12/2020 | | | | peritoneal dialysis | | | | | catheter, initial | | | | | encounter (HCC) | | + +--------+ + + | Hepatic Function Panel | Routin | Infection and | 2 Occurrences | | | e | inflammatory | starting 06/25/2019 | | | | reaction due to | until 02/12/2020 | | | | peritoneal dialysis | | | | | catheter, initial | | | | | encounter (HCC) | | + +--------+ + + | Renal Function Panel | Routin | Infection and | Expected: | | | e | inflammatory | 02/15/2019, Expires: | | | | reaction due to | 02/16/2020 | | | | peritoneal dialysis | | | | | catheter, initial | | | | | encounter (HCC) | | + +--------+ + + | CBC with Differential | Routin | Infection and | Expected: | | | e | inflammatory | 03/03/2019, Expires: | | | | reaction due to | 03/02/2020 | | | | peritoneal dialysis | | | | | catheter, initial | | | | | encounter (HCC) | | + +--------+ + + documented as of this encounter Visit Diagnoses + + | Diagnosis | + + | Infection and inflammatory reaction due to peritoneal dialysis catheter, initial | | encounter (HCC) | + + documented in this encounter
--- OUTSIDE RECORDS SUMMARY | ~2019-08-22 | XMS | Encounter Summary ---
Demographics + + + | Address | [address] | | | [place] [address] | + + + | Home Phone [...] [place], [place] | | | | | [address] | | + + + + + | Lydia Palm | ECON | [place], [place] | | | | | [address] | | + + + + + | melinda britton | ECON | [place], [place] | | | "[place]" | | [address] | | + + + + + | Jose C Mejia | ECON | [address] | | | | | [place] | | | | | [address] | | + + + + + Care Team Providers + +------+ + | Care Clinching Machine Operator Name | Role | Phone [...] + + | 07/22/ | Telephone | [facility] | Qasim Pederson MD | Other | | 2019 | | VASCULAR SURGERY | [address] | | | | | [address] | [place], [place] | | | | | [place], [place] | [address] | | | | | [address] | | | | | | [phone] | | | +--------+ + + + [...]
--- OUTSIDE RECORDS SUMMARY | ~2019-08-22 | XMS | Encounter Summary ---
Demographics + + + | Address | [address] | | | [place] [address] | + + + | Home Phone | | + + + | Preferred Language | Unknown | + + + | Marital Status | | + + + | Christian Affiliation | Unknown | + + + | Race | Unknown | + + + | Ethnic Group | Unknown | + + + Author + + + | Author | [facility] | | | and [place] | + + + | Organization | [facility] | | | and [place] | + + + | Address | Unknown | + + + | Phone | Unavailable | + + + Support + + + + + | Name | Relationship | Address | Phone | + + + + + | Lyubov Smalls | ECON | [place], [place] | | | | | [address] | | + + + + + | Lydia Palm | ECON | [place], [place] | | | | | [address] | | + + + + + | melinda britton | ECON | [place], [place] | | | "[place]" | | [address] | | + + + + + | Jose C Mejia | ECON | [place] | | | | | [place] | | | | | [address] | | + + + + + Care Team Providers + +------+ + | Care Technical Sales Manager Name | Role | Phone | [...] | | | | | ([facility]) Wound | | | | [...] + + | 07/08/ | Preadmit | [facility] | PoiQasim MD | | | 2019 | Visit | CENTER PREADMIT | [address] | | | | | CLINIC [address] | [place], [place] | | | | | [place], [place] | [id number] | | | | | [address] | | | | | | [phone] | | | +--------+ + + + [...] + | Blood Pressure | 107/55 | 07/08/2019926 PDT | + + + + | Pulse | 65 | 07/08/2019926 PDT | + + + + | Temperature | - | - | + + + + | Respiratory Rate | 12 | 07/08/2019926 PDT | + + + + | Oxygen Saturation | 98% | 07/08/2019926 PDT | + + + + | Inhaled Oxygen | - | - | | Concentration | | | + + + + | Weight | 84.2 kg (185 lb 10 | 07/08/2019926 PDT | | | oz) | | + + + + | Height | 157.5 cm (5' 2") | 07/08/2019926 PDT | + + + + | Body Mass Index | 33.95 | 07/08/2019926 PDT | + + + + documented in this encounter Plan of Treatment +--------+ [...] encounter Results , Serum, Qual (07/08/2019 9:59 PDT) + + + + + + | Component | Value | Ref Range | Performed | Pathologist | | | | | At | Signature | + + + + + + | Preg, Serum | NEGATIVEComment: Testing | NEG | DAWNA | | | | performed at [facility];[address] | | LABORATORY | | | | [address];[place], [place] | | | | | | [address] | | | | + + + + + + + + | Specimen | + + | Blood | + + + + + + + | Performing | Address | City/State/Zipcode | Phone Number | | Organization | | | | + + + + + | [facility] | [address] | [place] [address] | [phone] | + + + + + Basic Metabolic Panel (07/08/2019 9:45 PDT) + + + + + + [...] | performed at [facility] | | | | | | [facility];[place], [place] | | | | | | [address] | | | | + + + + + + + + | Specimen | + + | Blood | + + + + + + + | Performing | Address | City/State/Zipcode | Phone Number | | Organization | | | | + + + + + | [facility] | [address] | [place] [address] | [phone] | + + + + + CBC with Differential (07/08/2019 9:45 PDT) + + + + + + [...] | | Absolute | performed at [facility];[address] | [address] | LABORATORY | | | | [address];[place], [place] | | | | | | [address] | | | | + + + + + + + + | Specimen | + + | Blood | + + + + + + + | Performing | Address | City/State/Zipcode | Phone Number | | Organization | | | | + + + + + | [facility] | [address] | [place] [address] | [phone] | + + + + + ECG 12 lead (07/08/2019 9:42 PDT) + + + + + + [...]
--- OUTSIDE RECORDS SUMMARY | ~2019-08-22 | XMS | Encounter Summary ---
Demographics + + + | Address | [address] | | | [place] [address] | + + + | Home Phone | | + + + | Preferred Language | Unknown | + + + | Marital Status | | + + + | Restorationist Affiliation | Unknown | + + + | Race | Unknown | + + + | Ethnic Group | Unknown | + + + Author + + + | Author | [employer] [facility] (Historical as of | | | 06-26-19) | + + + | Organization | [facility] (Historical as of | | | 06-26-19) | + + + | Address | Unknown | + + + | Phone | Unavailable | + + + Support + + + + + | Name | Relationship | Address | Phone | + + + + + | Lyubov Smalls | ECON | [place], [place] | | | | | [address] | | + + + + + | Lydia Palm | ECON | [place], [place] | | | | | [address] | | + + + + + | Jose C Oconnor | ECON | [address] [place] | | | | | [place] | | | | | [address] | | + + + + + Care Team Providers + +------+ + | Care Bed Laborer Name | Role | Phone | [...] + + | 06/21/ | Office | [facility] | Kylie Alves DNP | ESRD (end stage | | 2019 | Visit | Vascular Surgery | [address] | renal disease) on | | | | [address] | [place], [place] | dialysis (HCC) | | | | [place], [place] | [address] | (Primary Dx); | | | | [address] | | Hemodialysis access, | | | | [phone] | | AV graft (HCC); | | [...] Kylie Alves DNP - 06/21/2019 3:00 PM [facility] [address] [place] [address] Office: [phone] DATE OF VISIT: 06/21/2019 PATIENT NAME: Ramona Oconnor : 1980; AGE: 39 y.o.; Sex:F PHONE NUMBER: ; ; PROVIDER: Kylie Alves DNP PRIMARY CARE / REFERRING PHYSICIAN: Eileen Rick FNP / Eileen Rick / [address] [facility] [address] / [place] [address] REASON FOR EVALUATION / CHIEF COMPLAINT: Vascular [...] wound vac placement on 05/26/[address] [facility] Operating Room. 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 Kylie Alves DNP in [...]
--- OUTSIDE RECORDS SUMMARY | ~2019-08-22 | XMS | Encounter Summary ---
Demographics + + + | Address | [address] | | | [place] [address] | + + + | Home Phone [...] [place], [place] | | | | | [address] | | + + + + + | Lydia Palm | ECON | [place], [place] | | | | | [address] | | + + + + + | melinda britton | ECON | [place], [place] | | | "[place]" | | [address] | | + + + + + | Jose C Mejia | ECON | [place] | | | | | [place] | | | | | [address] | | + + + + + Care Team Providers + +------+ + | Care Edger Runner Name | Role | Phone | + [...] | | | | | | | ([facility]) Wound | | | | | | [...] + + | 07/08/ | Surgery | [facility] | | LEFT AXILLA WOUND | | 2019 | | [facility] | | DEBRIDEMENT, WASHOUT | | | | OPERATING ROOM [address] | | AND POSSIBLE WOUND | | | | [address] | | VAC PLACEMENT | | | | [place], [place] | | | | | | [address] | | | | | | [phone] | | | +--------+---------+ + + + [...] + | Blood Pressure | 106/58 | 07/08/20191444 PDT | + + + + | Pulse | 79 | 07/08/20191444 PDT | + + + + | Temperature | 36.6 C (97.9 F) | 07/08/20191444 PDT | + + + + | Respiratory Rate | 20 | 07/08/20191414 PDT | + + + + | Oxygen Saturation | 96% | 07/08/20191444 PDT | + + + + | Inhaled Oxygen | - | - | | Concentration | | | + + + + | Weight | 84.2 kg (185 lb 10 | 07/08/2019 1028 PDT | | | oz) | | + + + + | Height | 157.5 cm (5' 2") | 07/08/2019 1028 PDT | + + + + | Body Mass Index | 33.95 | 07/08/2019 1028 PDT | + + [...] chamber of the vacuum Date Last Reviewed: 12/11/201619993063-6571 [employer]. [address] [place] [address]. All righ ts reserved. This information is [...] Anexsia, Lorcet, Lorcet HD, Lorcet Plus, Lortab, Empire, Verdrocet, Vicodin, Vi codin ES, Vicodin HP, [...] information carefully each time. Talk to your solution spec regarding the use of this medicine in children. Special care may be needed. What side effects may I notice from receiving this medicine? Side effects that you should report to your doctor or health healthcare consultant as soon as p ossible: allergic [...] attention (report to your doctor or health healthcare consultant if they continue or are bothersome): [...] official disposal site. Contact the [facility] at [phone] or your [facility] government to find a site. If [...] this medicine? Tell your doctor or health healthcare consultant if your pain does not go [...] pharmacist, or health care provider. Copyright 2019 [employer] Scopolamine skin patches Brand Name: Transderm Scop [...] behind the other ear. Talk to your solution spec regarding the use of this medicine in children. Special care may be needed. What side effects may I notice from receiving this medicine? Side effects that you should report to your doctor or health healthcare consultant as soon as p ossible: agitation, nervousness, confusion blurred vision and other eye problems dizziness, drowsiness eye pain or redness in the whites of the eye hallucinations pain or difficulty passing urine skin rash, itching vomiting Side effects that usually do not require medical attention (report to your doctor or health healthcare consultant if they continue or are bothersome): [...] pharmacist, or health care provider. Copyright 2019 [employer] documented in this encounter Medications at Time [...] Progress Notes Merary Springer RN - 07/08/2019 1525 PDTDischarge criteria met. No complications to surg ical site noted. Discharge instructions reviewed with the pt and family. Pt no longer voids due to dialysis, ambulated, has eaten a snack, had a beverage and is happy with pain manage ment. IV removed intact. Staff escorted pt to car via wheelchair. Discharged home with willie romero. documented in this enco unter Plan of Treatment +--------+ + + + [...] | | | | 11:00 PDT | (HCC) Wound | | | | | | [...] this encounter Results , Serum, Qual (07/08/2019 14:38 PDT) + + + + + + | Component | Value | Ref Range | Performed | Pathologist | | | | | At | Signature | + + + + + + | Preg, Serum | NEGATIVEComment: Testing | NEG | [facility] | | | | performed at [facility];[address] | | LABORATORY | | | | [address];[place] | | | | | | [address] | | | | + + + + + + + + | Specimen | + + | Blood | + + + + + + + | Performing | Address | City/State/Zipcode | Phone Number | | Organization | | | | + + + + + | [facility] | [address] | [place] [address] | [phone] | + + + + + documented [...] for irrigation 0.9% 3,000 mL | | PDT | | | | | Optesia Mixture PRN, Starting | | | | | | | Nina 07/08/19 at 1250, Intra-op | | | | | | + +--------+ +--------+------+------+ +---+---+ | | | +---+---+ + +-------+ +--------+---+---+ | fentaNYL (PF) injection 25-50 | Given | 07/08/20 | 50 mcg | | | | mcg 25-50 mcg, Intravenous, | | 19 13:11 | | | | | EVERY 5 MIN PRN, Pain, Initial | | PDT | | | | | postop [...] | | | | | | longer, hxoghg-yuz-vlgib use of | | | | | [...] 0.2-0.6 mg 0.2-0.6 mg, | | 19 13:54 | | | | | Intravenous, EVERY 5 MIN PRN, | | PDT | | | | | Pain, [...] | | | | | | | gwtvdq-atd-imiwu use of at least | | | [...] mg | | | | | 19 13:46 | | | | | | PDT | | | | +-------+ +--------+---+---+ | Given | 07/08/20 | 0.2 mg | | | | | 19 13:35 | | | | | | PDT | | | | +-------+ +--------+---+---+ +---+---+ | | | +---+---+ documented in this encounter
--- OUTSIDE RECORDS SUMMARY | ~2019-08-22 | XMS | Encounter Summary ---
Demographics + + + | Address | [address] | | | [place] [address] | + + + | Home Phone | | + + + | Preferred Language | Unknown | + + + | Marital Status | | + + + | Alevism Affiliation | Unknown | + + + | Race | Unknown | + + + | Ethnic Group | Unknown | + + + Author + + + | Author | [email or web address] (Historical as of | | | 06-26-19) | + + + | Organization | [facility] [email or web address] (Historical as of | | | 06-26-19) | + + + | Address | Unknown | + + + | Phone | Unavailable | + + + Support + + + + + | Name | Relationship | Address | Phone | + + + + + | Lyubov Smalls | ECON | [place], [place] | | | | | [address] | | + + + + + | Lydia Palm | ECON | [place], [place] | | | | | [address] | | + + + + + | Jose C Oconnor | ECON | [address] | | | | | [place] | | | | | [address] | | + + + + + Care Team Providers + +------+ + | Care Sap Bods Developer Name | Role | Phone | [...] + + | 05/26/ | Hospital | [facility] | Qasim Pederson MD | | | 2019 - | Encounter | Medical Cntr 3rd | [address] | | | | | Floor [place] | [place], [place] | | | 05/27/ | | Pavilion [address] | [address] [address] | [address] [place], [place] | | | | | | [...] chamber of the vacuum Date Last Reviewed: 12/11/201619999083-8212 [employer]. [address] [place] [address], [place] [address]. All [facility] ts reserved. This information is not intended [...] information carefully each time. Talk to your police officer crime prevention regarding the use of this medicine in children. Special care may be needed. What side effects may I notice from receiving this medicine? Side effects that you should report to your doctor or health field care advocate as soon as p ossible: allergic reactions [...] attention (report to your doctor or health field care advocate if they continue or are bothersome): constipation [...] to an official disposal site. Contact the [facility] at [phone] or your [facility] government to find a site. If [...] this medicine? Tell your doctor or health field care advocate if your pain does not go away, [...] after an initial decrease Date Last Reviewed: 02/08/201819996312-5374 [employer]. [address] [place] [address]. All righ ts reserved. This information is [...] information carefully each time. Talk to your police officer crime prevention regarding the use of this medicine in children. Special care may be needed. What side effects may I notice from receiving this medicine? Side effects that you should report to your doctor or health field care advocate as soon as p ossible: allergic reactions [...] attention (report to your doctor or health field care advocate if they continue or are bothersome): constipation [...] to an official disposal site. Contact the [facility] at [phone] [facility] government to find a site. If [...] this medicine? Tell your doctor or health field care advocate if your pain does not go away, [...] pharmacist, or health care provider. Copyright 2019 [employer] in this encounter Medications at Time of [...] (H) | 3.5 - 4.9 mmol/L | [facility] | + + + + + [...] + | BUN/CREAT | 3 | | [facility] | + + + + + | CALCIUM | 8.7 | 8.5 - 10.5 mg/dL | [facility] | + + + + + | EGFR | 4 (L)Comment: GFR <60: | >60 mL/min/1.73m2 | [facility] | | | CHRONIC [...] the | | | | | MDRD IDMA traceable | | | | | equation.Testing | | | | | performed at [facility] | | | | | [facility];[place], [place] | | | | | [address] | | | + + + + + + + | Specimen | + + | Blood | + + + + + + + | Performing | Address | City/State/Zipcode | Phone Number | | Organization | | | | + + + + + | [facility] | [address] | [place] [address] | | + + + + + test, serum (05/26/2019 1:48 PM) + + + + + | Component | Value | Ref Range | Performed At | + + + + + | TEST,SERUM | NEGATIVEComment: Testing | NEGATIVE | [facility] | | | performed at [facility];[address] | | | | | [address];[place] | | | | | [address] | | | + + + + + + + | Specimen | + + | Blood | + + + + + + + | Performing | Address | City/State/Zipcode | Phone Number | | Organization | | | | + + + + + | [facility] | [address] | [facility] [address] | | + + + + + [...] (L)Comment: GFR <60: | >60 mL/min/1.73m2 | [facility] | | | CHRONIC [...] the | | | | | MDRD IDMA traceable | | | | | equation.Testing | | | | | performed at [facility];[address] | | | | | [facility];[place], [place] | | | | | [address] | | | + + + + + + + | Specimen | + + | Blood | + + + + + + + | Performing | Address | City/State/Zipcode | Phone Number | | Organization | | | | + + + + + | [facility] | [address] | [place] [address] | | + + + + + [...] | | | | | dose on [facility] 05/27/19 at 0630 | | | [...]
--- OUTSIDE RECORDS SUMMARY | ~2019-08-22 | XMS | Encounter Summary ---
Demographics + + + | Address | [address] | | | [place] [address] | + + + | Home Phone | | + + + | Preferred Language | Unknown | + + + | Marital Status | | + + + | Christian Affiliation | Unknown | + + + | Race | Unknown | + + + | Ethnic Group | Unknown | + + + Author + + + | Author | [employer] (Historical as of | | | 06-26-19) | + + + | Organization | [facility] (Historical as of | | | 06-26-19) | + + + | Address | Unknown | + + + | Phone | Unavailable | + + + Support + + + + + | Name | Relationship | Address | Phone | + + + + + | Lyubov Smalls | ECON | [place] | | | | | [address] | | + + + + + | Lydia Palm | ECON | [place], [place] | | | | | [address] | | + + + + + | Jose C Oconnor | ECON | [address] | | | | | [place] | | | | | [address] | | + + + + + Care Team Providers + +------+ + | Care Wash Rack Operator Name | Role | Phone | [...] + + | 05/25/ | Office | [facility] | Kylie Alves DNP | End-stage renal | | 2019 | Visit | Vascular Surgery | [address] | disease (HCC) | | | | [address] | [place] | (Primary Dx); | | | | [place] | [address] | Hemodialysis access, | | | | [address] | | AV graft (HCC); | | | | [phone] | | Dehiscence of | | | [...] may be different from the or iginal. [facility] [address] [place] [address] Office: [phone] DATE OF VISIT: 05/25/2019 PATIENT NAME: Ramona Oconnor : 1980; AGE: 39 y.o.; Sex:F PHONE NUMBER: , PROVIDER: Kylie Alves DNP PRIMARY CARE / REFERRING PHYSICIAN: Juan F Whitley MD / [place] / [address] / [place] [address] Chief Complaint: left axillary surgical wound dehiscence [...] 10/25/15 showed normal sized kidneys. 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 GERD (gastroesophageal reflux disease) Hypercalcemia 09/07/2017 Hyperphosphatemia [...] AV FISTULA; Surgeon: Qasim Pederson MD; Location: [facility] MAIN OR; Service: Vascu lar; Laterality: Left; AV GRAFT CREATION Left 05/06/2019 Procedure: AV GRAFT CREATION; Surgeon: Qasim Pederson MD; Location: [facility] MAIN OR; Service : Vascular; Laterality: Left; bovine carotid graft CATHETER REMOVAL N/A 02/04/2019 Procedure: DIALYSIS CATHETER - REMOVAL; Surgeon: Qasim Pederson MD; Location: [facility] MAIN OR ; Service: Vascular; Laterality: N/A; Infected PD catheter removal dialysis port Right 01/2019 chest wall ESOPHAGOGASTRODUODENOSCOPY N/A 09/10/2017 Procedure: ESOPHAGOGASTRODUODENOSCOPY; Surgeon: Beena Peters MD; Location: [facility] ENDOSCOP Y; Service: Gastroenterology; Laterality: N/A; HARDWARE PRESENT PERITONEAL CATHETER INSERTION N/A 10/28/2015 Procedure: LAPAROSCOPIC - PERITONEAL DIALYSIS CATH INSERTION; Surgeon: Mundo Ramos MD; Lo cation: [facility] MAIN OR; Service: Vascular; Laterality: N/A; WISDOM [...] debridement, washout and wound vac placement at [facility] Operati ng Room on 05/26/2019. [...]
--- OUTSIDE RECORDS SUMMARY | ~2019-08-22 | XMS | Encounter Summary ---
Demographics + + + | Address | [address] | | | [place] [address] | + + + | Home Phone [...] [place], [place] | | | | | [address] | | + + + + + | Lydia Palm | ECON | [place], [place] | | | | | [address] | | + + + + + | melinda britton | ECON | [place], [place] | | | "[place]" | | [address] | | + + + + + | Jose C Mejia | ECON | [address] | | | | | [place] | | | | | [address] | | + + + + + Care Team Providers + +------+ + | Care Asset Accountant Name | Role | Phone | + [...] + + | 08/10/ | Emergency | [facility] | Farhad Lee, | End stage renal | | 2019 | | [facility] | [place] [address] | disease on dialysis | | | | EMERGENCY CENTER | [place] [address] | (HCC) (Primary Dx); | | | | [address] | [phone] | Hyperkalemia; | | | | [place], [place] | | Generalized | | | | [address] | Sher Alex, | abdominal pain; | | | | [phone] | DO [address] | Ovarian mass | | | | | [place] [address] | | | | | | [phone] | | | | | | | [...] be sent through Care Everywhere.Abdominal Pain, Adult (Bruneian)documented in this encounter Medications at Time of [...] (500), | | | | | | telegraph editor Rashel Polanco | | | | [...] | LABORATORY | | | | [address];[place], [place] | | | | | | [address] | | | | + + + + + + + + | Specimen | + + | Blood | + + + + + + + | Performing | Address | City/State/Zipcode | Phone Number | | Organization | | | | + + + + + | [facility] | [address] [facility] | [place] [address] | [phone] | + + + + + Comprehensive [...] 5 (L)Comment: GFR <60: | >60 | [facility] | | | GFR | CHRONIC [...] | | | | | | MDRD [facility] traceable | | | | | | equation.Testing | | | | | | performed at [facility] | | | | | | [facility];[place], [place] | | | | | | [address] | | | | + + + + + + + + | Specimen | + + | Blood | + + + + + + + | Performing | Address | City/State/Zipcode | Phone Number | | Organization | | | | + + + + + | [facility] | [address] | [place] [address] | [phone] | + + + + + CBC [...] | LABORATORY | | | | [address];[place], [place] | | | | | | [address] | | | | + + + + + + + + | Specimen | + + | Blood | + + + + + + + | Performing | Address | City/State/Zipcode | Phone Number | | Organization | | | | + + + + + | [facility] | [address] | [place] [address] | [phone] | + + + + + documented [...]
--- OUTSIDE RECORDS SUMMARY | ~2019-08-22 | XMS | Encounter Summary ---
Demographics + + + | Address | [address] | | | [place] [address] | + + + | Home Phone [...] [place], [place] | | | | | [address] | | + + + + + | Lydia Palm | ECON | [place], [place] | | | | | [address] | | + + + + + | melinda britton | ECON | [place], [place] | | | "[place]" | | [address] | | + + + + + | Jose C Mejia | ECON | [place] | | | | | [place] | | | | | [address] | | + + + + + Care Team Providers + +------+ + | Care Boiler Setter Name | Role | Phone | + [...] + + | 07/22/ | Clinical | [facility] | Nidhi Whitaker, | Surgical wound | | 2019 | Support | VASCULAR SURGERY | RN | dehiscence, | | | | [address] | | subsequent encounter | | | | [place] | | (Primary Dx) | | | | [address] | | | | | | [phone] | | | +--------+ + + + [...] Progress Notes Nidhi Whitaker RN - 07/22/2019 0900 PDTPatient presented to office with her momfor left under arm wound check/ wound vac. Patient is seeing [facility] out patient wound care 3 times a week for wound vac changes. Report received yesterday that patient had developed 2 pin size opening next to her suture line, wound care nurse was able to express pus from thos e openings. Wound vac dressing removed without any difficulty, black foam removed from tunn el in entirety, some bleeding noted. Suture on proximal wound still intact with no dehiscen ce. Kylie SMILEY brought into room to see patient. Sutures removed without issue, no dehi scence noted. Wound redressed with black foam, this had to be removed due to foam being too big, upon removal, scant amount of yellow slough and blood noted. Cotton swab inserted, no pus noted upon removal, scant bleeding noted. Smaller black foam reinserted, Aquacel silve r placed on proximal incision line. Wound dressed completely and wound vac replaced and set to 125 mmHg, good seal and suction noted. Patient next wound vac change out will be on Fri. Full report given to Elisha MARTINEZ at [facility] Unit CElisha will update [facility] next Friday regarding patient. Report also given to Dr Pederson. Patient to follow up in 2 weeks on 08/10/2019. document ed in this encounter Plan of Treatment +--------+ [...]
--- OUTSIDE RECORDS SUMMARY | ~2019-08-22 | XMS | Encounter Summary ---
Demographics + + + | Address | [address] | | | [place] [address] | + + + | Home Phone | | + + + | Preferred Language | Unknown | + + + | Marital Status | | + + + | Hindu Affiliation | Unknown | + + + | Race | Unknown | + + + | Ethnic Group | Unknown | + + + Author + + + | Author | [facility] (Historical as of | | | 06-26-19) | + + + | Organization | [facility] (Historical as of | | | 06-26-19) | + + + | Address | Unknown | + + + | Phone | Unavailable | + + + Support + + + + + | Name | Relationship | Address | Phone | + + + + + | Lyubov Smalls | ECON | [place], [place] | | | | | [address] | | + + + + + | Lydia Palm | ECON | [place], [place] | | | | | [address] | | + + + + + | Jose C Oconnor | ECON | [place] | | | | | [place] | | | | | [address] | | + + + + + Care Team Providers + +------+ + | Care Heel Finisher Name | Role | Phone | + +------+ + | Eileen Rick | PCP | | + +------+ + Reason for Visit +--------+ + | Reason | Comments | +--------+ + | Other | Question | +--------+ + Encounter Details +--------+ + + + + | Date | Type | Department | Care Team | Description | +--------+ + + + + | 05/26/ | Telephone | [facility] | Qasim Pederson MD | Other (Question) | | 2019 | | Vascular Surgery | [address] | | | | | [address] | [facility] | | | | | [facility] [place] | [address] | | | | | [address] | | | | | | [phone] | | | +--------+ + + + [...]
--- OUTSIDE RECORDS SUMMARY | ~2019-08-22 | XMS | Clinical Summary ---
Demographics + + + | Address | [address] | | | [place] [address] | + + + | Home Phone | | + + + | Preferred Language | Unknown | + + + | Marital Status | | + + + | Quaker Affiliation | Unknown | + + + | Race | Unknown | + + + | Ethnic Group | Unknown | + + + Author + + + | Author | [facility] (Historical as of | | | 06-26-19) | + + + | Organization | [facility] (Historical as of | | | 06-26-19) | + + + | Address | Unknown | + + + | Phone | Unavailable | + + + Support + + + + + | Name | Relationship | Address | Phone | + + + + + | Lyubov Smalls | ECON | [place], [place] | | | | | [address] | | + + + + + | Lydia Palm | ECON | [place], [place] | | | | | [address] | | + + + + + | Jose C Oconnor | ECON | [address] | | | | | [place] | | | | | [address] | | + + + + + Care Team Providers + +------+ + | Care Datastage Developer Name | Role | Phone | [...] + + + + | [facility] | 03/16/20 | | | | 18 | 8 | + + + + | Peritonitis ([facility]) | 03/16/20 | | | | 18 [...] 2018 | on Only | | | [facility] | | | | | | [...] | | | 2018 | | | FUNCTIONAL ARCHITECT | | +--------+ + + + + [...] | | 11/09/ | [id number] | | [id number] - Sn/AImplanted: | | Arm | ARTG [...] Volume flow: 914 cc/min: Diameter: 7.6 mm. [place] loop: | | | PSV: 52 cm/sec. [...] cm/sec. Volume flow: 914 cc/min: Diameter: 7.6 mm.[place] loop: PSV: 52 cm/sec. | | Volume [...] flow: 914 cc/min: Diameter: 7.6 mm. | |[place] loop: PSV: 52 cm/sec. Volume flow: 236 [...] | + + + + + | [facility] | [address] | [place] [address] | | + + + + + Basic metabolic panel (05/26/2019 4:00 PM)Only the most recent of 2 results within the period is included. + + + + + | Component | Value | Ref Range | Performed At | + + + + + | SODIUM | 136 | 135 - 145 mmol/L | [facility] | + + + + + | POTASSIUM | 5.8 (H) | 3.5 - 4.9 mmol/L | [facility] | + + + + + | CHLORIDE | 100 | 99 - 109 mmol/L | [facility] | + + + + + | CO2 | 26 | 23 - 32 mmol/L | [facility] | + + + + + | ANION GAP AGAP | 16 | 5 - 20 mmol/L | [facility] | + + + + + | GLUCOSE | 71 | 65 - 99 mg/dL | [facility] | + + + + + | BUN | 33 (H) | 8 - 25 mg/dL | [facility] | + + + + + | CREATININE | 9.91 (H) | 0.50 - 1.00 mg/dL | [facility] | + + + + + | BUN/CREAT | 3 | | [facility] | + + + + + | CALCIUM | 8.7 | 8.5 - 10.5 mg/dL | [facility] | + + + + + | EGFR | 4 (L)Comment: GFR <60: | >60 mL/min/1.73m2 | [facility] | | | CHRONIC [...] | performed at [facility] | | | | | [facility];[place], [place] | | | | | [address] | | | + + + + + + + | Specimen | + + | Blood | + + + + + + + | Performing | Address | City/State/Zipcode | Phone Number | | Organization | | | | + + + + + | [facility] | [address] | [place] [address] | | + + + + + test, serum (05/26/2019 1:48 PM) + + + + + | Component | Value | Ref Range | Performed At | + + + + + | TEST,SERUM | NEGATIVEComment: Testing | NEGATIVE | [facility] | | | performed at [facility];[address] | | | [address];[place] | | | | | [address] | | | + + + + + + + | Specimen | + + | Blood | + + + + + + + | Performing | Address | City/State/Zipcode | Phone Number | | Organization | | | | + + + + + | [facility] | [address] | [place] [address] | | + + + + + [...] +------+-------+ + | PREMERA | PREMER | [id number] | | | [address] [address] | | | A BLUE | | | | [place], [place] | | | CROSS | | | | [address] | | | FED | | | | | | | PPO | | | | | + +--------+ +------+-------+ + | [facility] | YELLOW | [id number] | | | | | PLANS | HAWK | | | | | + +--------+ +------+-------+ + | MEDICARE | MEDICA | [id number] | | | [address] | | | RE | | | | [place] [address] | | | MIKE Raymundo | | [...] Self | [birth year] | Home: | [address] | | [place] | al/Fam | | 1979 | [phone] | [place] | | | caesar | | | [phone] | [phone] | + +--------+ +--------+ + +
--- OUTSIDE RECORDS SUMMARY | ~2019-08-22 | XMS | Encounter Summary ---
Demographics + + + | Address | [address] | | | [place] [address] | + + + | Home Phone [...] [place], [place] | | | | | [address] | | + + + + + | Lydia Palm | ECON | [place], [place] | | | | | [address] | | + + + + + | melinda britton | ECON | [place], [place] | | | "[place]" | | [address] | | + + + + + | Jose C Mejia | ECON | [address] [place] | | | | | [place] | | | | | [address] | | + + + + + Care Team Providers + +------+ + | Care Protection Specialist Name | Role | Phone | [...] [facility]A WOUND | | 2019 | | [facility] | | DEBRIDEMENT, WASHOUT | | | | OPERATING ROOM [address] | | AND POSSIBLE WOUND | | | | [address] | | VAC PLACEMENT | | | | [place], [place] | | | | | | [address] | | | | | | [phone] | | | +--------+---------+ + + + [...] chamber of the vacuum Date Last Reviewed: 12/11/201619996945-3162 [employer]. [address] [place] [address]. All righ ts reserved. This information is [...] Anexsia, Lorcet, Lorcet HD, Lorcet Plus, Lortab, Plato, Verdrocet, Vicodin, Vi codin ES, Vicodin HP, [...] information carefully each time. Talk to your autopsy assistant regarding the use of this medicine in children. Special care may be needed. What side effects may I notice from receiving this medicine? Side effects that you should report to your doctor or health rn complex care as soon as p ossible: allergic [...] (report to your doctor or health rn complex care if they continue or are bothersome): [...] to an official disposal site. Contact the [facility] at [phone] [facility] government to find a site. [...] medicine? Tell your doctor or health rn complex care if your pain does not go [...] pharmacist, or health care provider. Copyright 2019 [employer] Scopolamine skin patches Brand Name: Transderm Scop [...] behind the other ear. Talk to your autopsy assistant regarding the use of this medicine in children. Special care may be needed. What side effects may I notice from receiving this medicine? Side effects that you should report to your doctor or health rn complex care as soon as p ossible: agitation, nervousness, confusion blurred vision and other eye problems dizziness, drowsiness eye pain or redness in the whites of the eye hallucinations pain or difficulty passing urine skin rash, itching vomiting Side effects that usually do not require medical attention (report to your doctor or health rn complex care if they continue or are bothersome): [...] pharmacist, or health care provider. Copyright 2019 [employer] documented in this encounter Medications at Time [...] [facility] | | | | performed at [facility];[address] | | LABORATORY | | | | [place]ar[address];[place] | | | | | | [address] | | | | + + + + + + + + | Specimen | + + | Blood | + + + + + + + | Performing | Address | City/State/Zipcode | Phone Number | | Organization | | | | + + + + + | [facility] | [address] | [place] [address] | [phone] | + + + + + documented [...] | | | | | | longer, tpbtgo-xky-snclq use of | | | | | [...] | | | | | | | fyuulj-jfu-sogew use of at least | | | [...]
--- OUTSIDE RECORDS SUMMARY | ~2019-08-22 | XMS | Encounter Summary ---
Demographics + + + | Address | [address] | | | [place] [address] | + + + | Home Phone | | + + + | Preferred Language | Unknown | + + + | Marital Status | | + + + | Baptist Affiliation | Unknown | + + + | Race | Unknown | + + + | Ethnic Group | Unknown | + + + Author + + + | Author | [facility] (Historical as of | | | 06-26-19) | + + + | Organization | [facility] (Historical as of | | | 06-26-19) | + + + | Address | Unknown | + + + | Phone | Unavailable | + + + Support + + + + + | Name | Relationship | Address | Phone | + + + + + | Lyubov Smalls | ECON | [place], [place] | | | | | [address] | | + + + + + | Lydia Palm | ECON | [place], [place] | | | | | [address] | | + + + + + | Jose C Oconnor | ECON | [place] | | | | | [place] | | | | | [address] | | + + + + + Care Team Providers + +------+ + | Care Medical Management Specialist Name | Role | Phone | [...] | | [address] | [address] [place], [place] | Dialysis Rounding | | | | [place] [address] | [phone] | Note) | | | | [phone] | | | +--------+ + + + [...]
--- OUTSIDE RECORDS SUMMARY | ~2019-08-22 | XMS | Encounter Summary ---
Demographics + + + | Address | [address] | | | [place] [address] | + + + | Home Phone [...] [place], [place] | | | | | [address] | | + + + + + | Lydia Palm | ECON | [place], [place] | | | | | [address] | | + + + + + | melinda britton | ECON | [place], [place] | | | "[place]" | | [address] | | + + + + + | Jose C Mejia | ECON | [place] | | | | | [place] | | | | | [address] | | + + + + + Care Team Providers + +------+ + | Care Rink Rat Name | Role | Phone | + [...] + + | 08/10/ | Clinical | [facility] | Nidhi Whitaker, | ESRD on dialysis | | 2019 | Support | VASCULAR SURGERY | RN | (HCC) (Primary Dx) | | | | [address] | | | | | | [place] | | | | | | [address] | | | | | | [phone] | | | +--------+ + + + [...] Progress Notes Nidhi Whitaker RN - 08/10/2019 1300 PDTPatient presented to office again after ER visit . Patient's GI symptoms have since resolved. Patient's wound vac dressing to left axillary area removed without difficulty, opening to wound is 1 cm wide, depth remains at 4 cm, no p us or drainage noted. Wound is 50% smaller than what it was 2 weeks ago. Wound redressed w ithout any issue, pressure set to 125 mmHg, patient is to follow up with wound care on day and [facility] in 2 weeks. She will call [facility] if any issue arises. Electronica lly signed by Nidhi Whitaker RN at 08/10/2019 17:30 PDTdocumented in this encounter Plan of Treatment +--------+ [...]
--- OUTSIDE RECORDS SUMMARY | ~2019-08-22 | XMS | Encounter Summary ---
Demographics + + + | Address | [address] | | | [place] [address] | + + + | Home Phone [...] [place], [place] | | | | | [address] | | + + + + + | Lydia Palm | ECON | [place], [place] | | | | | [address] | | + + + + + | melinda britton | ECON | [place], [place] | | | "[place]" | | [address] | | + + + + + | Jose C Mejia | ECON | [place] | | | | | [place] | | | | | [address] | | + + + + + Care Team Providers + +------+ + | Care Rotary Driller Name | Role | Phone | + [...] + + | 07/06/ | Clinical | [facility] | Nidhi Whitaker, | ESRD (end stage | | 2019 | Support | VASCULAR SURGERY | RN | renal disease) on | | | | [address] | | dialysis (HCC) | | | | [place] | | (Primary Dx) | | | | [address] | | | | | | [phone] | | | +--------+ + + + [...] Progress Notes Nidhi Whitaker RN - 07/06/2019 1330 PDTPatient presented to office for left axillary wo und check. Patient reports that wound is healing well. She had a disagreement with [facility] regarding her home bound status last so she requested to be discharg ed from home health services. Since then her has been helping her with her wound ca re. Dressing removed from patient's axillary area, light greenish slough noted on dressing, wound bed is red and beefy measuring approximately 5 cm by 3 cm with the depth of 3 cm, it appears the AVG is exposed. Dr Pederson and Kylie Alves brought into room to see patient. Per Kylie lau wound is twice the size it was since the last appointment. Dr Pederson confirmed that patient 's AVG is indeed exposed. Dr Pederson scheduled patient for urgent wound irrigation and debridem ent this with wound vac placement. Dr Pederson repacked wound with alcohol swab and dry dressing. Patient instructed to not change dressing unless dressing falls off or is visibl y soiled. Patient will be scheduled with [facility] [place] once surgery order is received. Since alex ent is no longer home bound, she will be following up with [facility] out patient wound c are at [address]. Patient will call [facility] back if she has any questions or concerns. Alexandra ctronically signed by Nidhi Whitaker RN at 07/07/2019 9:41 PDTdocumented in this encount er Plan of Treatment +--------+ + + + [...]
--- OUTSIDE RECORDS SUMMARY | ~2019-08-22 | XMS | Encounter Summary ---
Demographics + + + | Address | [address] | | | [place] [address] | + + + | Home Phone | | + + + | Preferred Language | Unknown | + + + | Marital Status | | + + + | Shinto Affiliation | Unknown | + + + | Race | Unknown | + + + | Ethnic Group | Unknown | + + + Author + + + | Author | [facility] | | | and [place] | + + + | Organization | [facility] | | | and [place] | + + + | Address | Unknown | + + + | Phone | Unavailable | + + + Support + + + + + | Name | Relationship | Address | Phone | + + + + + | Lyubov Smalls | ECON | [place], [place] | | | | | [address] | | + + + + + | Lydia Palm | ECON | [place], [place] | | | | | [address] | | + + + + + | melinda britton | ECON | [place], [place] | | | "[place]" | | [address] | | + + + + + | Jose C Mejia | ECON | [place] [place] | | | | | [place] | | | | | [address] | | + + + + + Care Team Providers + +------+ + | Care Edge Grinder Name | Role | Phone | [...] + + | 08/12/ | Telephone | [facility] | Qasim Pederson MD | Wound | | 2019 | | VASCULAR SURGERY | [address] | | | | | [address] | [place], [place] | | | | | [place], [place] | [address] | | | | | [address] | | | | | | [phone] | | | +--------+ + + + [...]
--- OUTSIDE RECORDS SUMMARY | ~2019-08-22 | XMS | Encounter Summary ---
Demographics + + + | Address | [address] | | | [place] [address] | + + + | Home Phone | | + + + | Preferred Language | Unknown | + + + | Marital Status | | + + + | Rastafarian Affiliation | Unknown | + + + | Race | Unknown | + + + | Ethnic Group | Unknown | + + + Author + + + | Author | [facility] (Historical as of | | | 06-26-19) | + + + | Organization | [facility] (Historical as of | | | 06-26-19) | + + + | Address | Unknown | + + + | Phone | Unavailable | + + + Support + + + + + | Name | Relationship | Address | Phone | + + + + + | Lyubov Smalls | ECON | [place], [place] | | | | | [address] | | + + + + + | Lydia Palm | ECON | [place], [place] | | | | | [address] | | + + + + + | Jose C Oconnor | ECON | [place] | | | | | [place] | | | | | [address] | | + + + + + Care Team Providers + +------+ + | Care Visual Merchandiser Name | Role | Phone | + +------+ + | Eileen Rick | PCP | | + +------+ + Encounter Details +--------+ + + + + | Date | Type | Department | Care Team | Description | +--------+ + + + + | 05/28/ | Telephone | [facility] | Marixa Mendoza, | | | 2019 | | Vascular Surgery | [facility] | | | | | [address] | | | | | | [place] | | | | | | [address] | | | | | | [phone] | | | +--------+ + + + [...] Volume flow: 914 cc/min: Diameter: 7.6 mm. [place] loop: | | | PSV: 52 cm/sec. [...] cm/sec. Volume flow: 914 cc/min: Diameter: 7.6 mm.[place] loop: PSV: 52 cm/sec. | | Volume [...] flow: 914 cc/min: Diameter: 7.6 mm. | |[place] loop: PSV: 52 cm/sec. Volume flow: 236 [...] | + + + + + | [facility] | [address] | [place] [address] | | + + + + + in this encounter Visit Diagnoses + + | Diagnosis | + + | ESRD (end stage renal disease) on dialysis (HCC) - Primary | + + | End stage renal disease | + +"
--- OUTSIDE RECORDS SUMMARY | ~2019-08-22 | XMS | Encounter Summary ---
Demographics + + + | Address | [address] | | | [place] [address] | + + + | Home Phone [...] [place], [place] | | | | | [address] | | + + + + + | Lydia Palm | ECON | [place], [place] | | | | | [address] | | + + + + + | melinda britton | ECON | [place], [place] | | | "[place]" | | [address] | | + + + + + | Jose C Mejia | ECON | [address] | | | | | [place] | | | | | [address] | | + + + + + Care Team Providers + +------+ + | Care Pit Furnace Operator Name | Role | Phone [...] + + | 08/10/ | Clinical | [facility] | Nidhi Whitaker, | ESRD on dialysis | | 2019 | Support | VASCULAR SURGERY | RN | (HCC) (Primary Dx) | | | | [address] | | | | | | [place] | | | | | | [address] | | | | | | [phone] | | | +--------+ + + + [...]
--- OUTSIDE RECORDS SUMMARY | ~2019-08-22 | XMS | Encounter Summary ---
Demographics + + + | Address | [address] | | | [place] [address] | + + + | Home Phone | | + + + | Preferred Language | Unknown | + + + | Marital Status | | + + + | Mosque Affiliation | Unknown | + + + | Race | Unknown | + + + | Ethnic Group | Unknown | + + + Author + + + | Author | [employer] [facility] (Historical as of | | | 06-26-19) | + + + | Organization | [facility] (Historical as of | | | 06-26-19) | + + + | Address | Unknown | + + + | Phone | Unavailable | + + + Support + + + + + | Name | Relationship | Address | Phone | + + + + + | Lyubov Smalls | ECON | [place], [place] | | | | | [address] | | + + + + + | Lydia Palm | ECON | [place], [place] | | | | | [address] | | + + + + + | Jose C Oconnor | ECON | [address] | | | | | [place] | | | | | [address] | | + + + + + Care Team Providers + +------+ + | Care Elevator Operator Service Name | Role | Phone | + [...] + + | 05/26/ | Anesthesia | [facility] | Louisa Ramos MD | | | 2019 | Event | [facility] | [address] | | | | | Operating Room [address] | [place] [address] | | | | | [address] | [phone] | | | | | [place] [address] | | | | | | [phone] | | | +--------+ + + + + Anesthesia Record + + + + + | Procedure Name | Responsible | Anesthesia Start | Anesthesia Stop Time | | | Anesthesiologist | Time | | + + + + + | WOUND VAC - | Louisa Ramos MD | 05/26/19 1432 | 05/26/19 1536 | | PLACEMENT - | | | | | REPLACEMENT (Left | | | | | Axilla) | | | | + + + + + +----+---+ + + | Da | T | Event | Comment | | te | i | | | | | m | | | | | e | | | +----+---+ + + | 07 | 1 | Block Start | Pre-anesthetic vitals signs reassessed. | | /1 | 3 | | | | 7/ | 5 | | | | 20 | 3 | | | | 19 | | | | +----+---+ + + | | 1 | Block Stop | | | | 4 | | | | | 0 | | | | | 8 | | | +----+---+ + + | | 1 | An Start | Pre-anesthetic vital signs reassessed. | | | 4 | | | | | 3 | | | | | 2 | | | +----+---+ + + | | 1 | Quick Note | Pt initially coughing after propofol started, then tearful, then | | | 4 | | with myoclonic jerking. | | | 5 | | | | | 1 | | | +----+---+ + + | | 1 | Quick Note | Pt unable to lift LUE preop after block and reportedly numb, but | | | 4 | | stimulated with incision. Elected to induce and LMA placed easily | | | 5 | | first pass. Wound is high in axilla - block not adequately | | | 6 | | covering area. Would recommend GA w/ LMA, piv and local by | | | | | surgeon if pt requires additional I&D. | +----+---+ + + | | 1 | An | | | | 5 | Emergence | | | | 2 | | | | | 2 | | | +----+---+ + + | | 1 | Extubation | | | | 5 | | | | | 2 | | | | | 6 | | | +----+---+ + + | | 1 | an stop | | | | 5 | data | | | | 2 | | | | | 8 | | | +----+---+ + + | | 1 | An Stop | | | | 5 | | | | | 3 | | | | | 6 | | | +----+---+ + + +------+ | Meds | +------+ + + + | Name | Total | + + + | midazolam 1 mg/mL | 4 mg | + + + | fentanyl 50 mcg/mL | 100 mcg | + + + | lidocaine 2% | 100 mg | + + + | propofol bolus | 190 mg | + + + | propofol infusion | 103.68 mg | + + + | ondansetron 2 mg/mL | 4 mg | + + + | ceFAZolin (ANCEF) IVPB 2 g | 2 g | + + + | metoclopramide 5 mg/mL | 10 mg | + + + | ranitidine 25mg/mL | 50 mg | + + + | sodium bicarbonate 1 mEq/mL | 50 mEq | + + + | phenylephrine 10 mg/mL | 100 mcg | + + + | ePHEDrine 5 mg/mL | 5 mg | + + + | dexamethasone 4 mg/mL | 8 mg | + + + | NS | 400 mL | + + + + + | Name | + + | Aux O2 (L/min) | + + | N2O | + + | O2 | + + | Air | + + | Sevoflurane-EX | + + | N2O | + + + + | No blood administrations on file. | + + +--------+ + +---------+ | Type | Details | Placement | Removal | +--------+ + +---------+ | Hemodi | 02/05/19; 08; Catheter; Right; | 02/05/19803 by | | | alysis | Jugular | Yolette Abernathy, | | | | | RN | | | Cathet | | | | | er | | | | +--------+ + +---------+ | Hemodi | 03/11/19; 1330; AV Fistula; Left; | 03/11/19 1330 by | | | alysis | Arm | Esthela Nieto RN | | | | | | | | Cathet | | | | | er | | | | +--------+ + +---------+ | Wound | 05/06/19; 1244; Incision; Arm; | 05/06/19 1244 by | | | | Left | Isabel Mosqueda | | | | | MICHELLE Hollis | | +--------+ + +---------+ | Hemodi | 05/06/19; 1300; AV Graft; Left, | 05/06/19 1300 by | | | alyohannes | Upper; Arm | Sabrina Durham, | | | | | RN | | | Nina | | | | | er | | | | +--------+ + +---------+ | Periph | Placement Date: 05/26/19; | 05/26/191314 by | | | rissa | Placement Time: 1314; Size | Ese Conklin RN | | | IV | (Gauge): 22 G; Orientation: | | | | | Right; Location: Antecubital; | | | | | Site Prep: | | | | | Chlorhexidine-Isopropyl Alcohol; | | | | | Insertion Attempts: 1 | | | +--------+ + +---------+ | LMA/Ph | Placement Date: 05/26/19; | 05/26/191457 by | | | lonnie | Placement Time: 1457; Type: | Louisa Ramos MD | | | al | Unique; Type Size: 4; | | | | | Confirmation: EtCO2 | | | +--------+ + +---------+ | Negati | 05/26/19; 1511; Placed in [place]; | 05/26/191511 by | | | ve | Other (Comment) (Axillary ); Left | Shirley Rangel RN | | | Pressu | | | | | re | | | | | Wound | | | | | Therap | | | | | y | | | | +--------+ + +---------+ in this encounter Social History + +-------+ [...] Visit Diagnoses Not on filein this encounter Administered Medications + +--------+ +------+------+------+ | Medication Order | MAR | Action | Dose | Rate | Site | | | Action | Date | | | | + +--------+ +------+------+------+ | ceFAZolin (ANCEF) IVPB 2 g 2 | Given | | 2 g | | | | g, Intravenous, Administer over | | 9 14:34 | | | | | 30 Minutes, Jd Edwards Consultant To Marilu Kendrick | | PDT | | | | | 05/26/19 at 1330, For 1 dose, Must | | | | | | | be completely infused before | | | | | | | incision is made. Redose every 4 | | | | | | | hours during procedure. | | | | | | + +--------+ +------+------+------+ +---+---+ | | | +---+---+ + +-------+ +------+---+---+ | dexamethasone (DECADRON) 4 | Given | | 8 mg | | | | MG/ML injection PRN, Starting | | 9 15:23 | | | | | 05/26/19 at 1523, Anesthesia | | PDT | | | | | Intra-op | | | | | | + +-------+ +------+---+---+ +---+---+ | | | +---+---+ + +-------+ +------+---+---+ | ephedrine injection PRN, | Given | | 5 mg | | | | Starting 05/26/19 at 1515, | | 9 15:15 | | | | | Anesthesia Intra-op | | PDT | | | | + +-------+ +------+---+---+ +---+---+ | | | +---+---+ + +-------+ +--------+---+---+ | fentaNYL (SUBLIMAZE) injection | Given | | 50 mcg | | | | Intravenous, PRN, Starting Wed | | 9 14:45 | | | | | 05/26/19 at 1445, Anesthesia | | PDT | | | | | Intra-op | | | | | | + +-------+ +--------+---+---+ +-------+ +--------+---+---+ | Given | | 50 mcg | | | | | 9 14:59 | | | | | | PDT | | | | +-------+ +--------+---+---+ +---+---+ | | | +---+---+ + +-------+ +--------+---+---+ | lidocaine 2 % (MDV) 2 % | Given | | 100 mg | | | | injection Intravenous, PRN, | | 9 14:38 | | | | | Starting 05/26/19 at 1438, | | PDT | | | | | Anesthesia Intra-op | | | | | | + +-------+ +--------+---+---+ +---+---+ | | | +---+---+ + +-------+ +-------+---+---+ | metoclopramide (REGLAN) | Given | | 10 mg | | | | injection PRN, Heartburn, | | 9 14:42 | | | | | Starting Fri05/26/19 at 1442, | | PDT | | | | | Anesthesia Intra-op | | | | | | + +-------+ +-------+---+---+ +---+---+ | | | +---+---+ + +-------+ +------+---+---+ | midazolam (VERSED) injection | Given | | 2 mg | | | | PRN, Starting Fri05/26/19 at | | 9 13:48 | | | | | 1348, Anesthesia Intra-op | | PDT | | | | + +-------+ +------+---+---+ +-------+ +------+---+---+ | Given | | 1 mg | | | | | 9 14:46 | | | | | | PDT | | | | +-------+ +------+---+---+ | Given | | 1 mg | | | | | 9 14:53 | | | | | | PDT | | | | +-------+ +------+---+---+ +---+---+ | | | +---+---+ + +-------+ +------+---+---+ | ondansetron (ZOFRAN) injection | Given | | 4 mg | | | | PRN, Nausea, Vomiting, Starting | | 9 15:24 | | | | | 05/26/19 at 1524, Anesthesia | | PDT | | | | | Intra-op | | | | | | + +-------+ +------+---+---+ +---+---+ | | | +---+---+ + +-------+ +---------+---+---+ | phenylephrine (PONCHO-SYNEPHRINE, | Given | | 100 mcg | | | | VAZCULEP) 10 mg/mL injection | | 9 15:09 | | | | | PRN, Starting 05/26/19 at | | PDT | | | | | 1509, Anesthesia Intra-op | | | | | | + +-------+ +---------+---+---+ +---+---+ | | | +---+---+ + +-------+ +-------+---+---+ | propofol (DIPRIVAN) injection | Given | | 20 mg | | | | Intravenous, PRN, Starting Wed | | 9 14:38 | | | | | 05/26/19 at 1438, Anesthesia | | PDT | | | | | Intra-op | | | | | | + +-------+ +-------+---+---+ +-------+ +--------+---+---+ | Given | | 20 mg | | | | | 9 14:45 | | | | | | PDT | | | | +-------+ +--------+---+---+ | Given | | 150 mg | | | | | 9 14:57 | | | | | | PDT | | | | +-------+ +--------+---+---+ +---+---+ | | | +---+---+ + +---------+ + +-------+---+ | propofol infusion Intravenous, | New Bag | | 50 | 24.3 | | | Continuous PRN, Starting Wed | | 9 14:38 | mcg/kg/m | mL/hr | | | 05/26/19 at 1438, Anesthesia | | PDT | in | | | | Intra-op | | | | | | + +---------+ + +-------+---+ + + + +-------+---+ | Rate/Dose Change | | 80 | 38.9 | | | | 9 14:46 | mcg/kg/m | mL/hr | | | | PDT | in | | | + + + +-------+---+ +---+---+ | | | +---+---+ + +-------+ +-------+---+---+ | ranitidine (ZANTAC) injection | Given | | 50 mg | | | | PRN, Starting 7/17/19 at | | 9 14:43 | | | | | 1443, Anesthesia Intra-op | | PDT | | | | + +-------+ +-------+---+---+ +---+---+ | | | +---+---+ + +-------+ +--------+---+---+ | sodium bicarbonate 8.4 % | Given | | 10 mEq | | | | injection PRN, Starting Wed | | 9 15:02 | | | | | 05/26/19 at 1451, Anesthesia | | PDT | | | | | Intra-op | | | | | | + +-------+ +--------+---+---+ +-------+ +--------+---+---+ | Given | | 10 mEq | | | | | 9 15:05 | | | | | | PDT | | | | +-------+ +--------+---+---+ | Given | | 15 mEq | | | | | 9 15:13 | | | | | | PDT | | | | +-------+ +--------+---+---+ +---+---+ | | | +---+---+ + +---------+ +---+---+---+ | sodium chloride 0.9 % infusion | New Bag | | | | | | Continuous PRN, Starting Wed | | 9 13:42 | | | | | 05/26/19 at 1342, Anesthesia | | PDT | | | | | Intra-op | | | | | | + +---------+ +---+---+---+ +---+---+ | | | +---+---+ in this encounter"
--- OUTSIDE RECORDS SUMMARY | ~2019-08-22 | XMS | Encounter Summary ---
Demographics + + + | Address | [address] | | | [place] [address] | + + + | Home Phone [...] [place], [place] | | | | | [address] | | + + + + + | Lydia Palm | ECON | [place], [place] | | | | | [address] | | + + + + + | melinda britton | ECON | [place], [place] | | | "[place]" | | [address] | | + + + + + | Jose C Mejia | ECON | [address] | | | | | [place] | | | | | [address] | | + + + + + Care Team Providers + +------+ + | Care Cooler Supervisor Name | Role | Phone | + +------+ + | Juan F Whitley DO | PCP | | + +------+ + Encounter Details +--------+ + + + + | Date | Type | Department | Care Team | Description | +--------+ + + + + | 06/13/ | Orders Only | [facility] | Provider, | Infection and | | 2018 | | SYSTEM GENERIC OP | MD [address] | inflammatory | | | | CONVERSION [address] | [address] | reaction due to | | | | [address] [place], [place] | [place] [address] | peritoneal dialysis | | | | [address] | | catheter, initial | | | | [phone] | | encounter (HCC) | +--------+ + [...]
--- OUTSIDE RECORDS SUMMARY | ~2019-08-22 | XMS | Encounter Summary ---
Demographics + + + | Address | [address] | | | [place] [address] | + + + | Home Phone | | + + + | Preferred Language | Unknown | + + + | Marital Status | | + + + | Moravian Affiliation | Unknown | + + + | Race | Unknown | + + + | Ethnic Group | Unknown | + + + Author + + + | Author | [employer] [facility] (Historical as of | | | 06-26-19) | + + + | Organization | [facility] (Historical as of | | | 06-26-19) | + + + | Address | Unknown | + + + | Phone | Unavailable | + + + Support + + + + + | Name | Relationship | Address | Phone | + + + + + | Lyubov Smalls | ECON | [place], [place] | | | | | [address] | | + + + + + | Lydia Palm | ECON | [place], [place] | | | | | [address] | | + + + + + | Jose C Oconnor | ECON | [address] | | | | | [place] | | | | | [address] | | + + + + + Care Team Providers + +------+ + | Care Pricing Specialist Name | Role | Phone | [...] + + | 06/23/ | Telephone | [facility] | Kylie Alves DNP | Other | | 2019 | | Vascular Surgery | [address] | | | | | [address] | [facility] | | | | | [facility] | [address] | | | | | [address] | | | | | | [phone] | | | +--------+ + + + [...]
--- OUTSIDE RECORDS SUMMARY | ~2019-08-22 | XMS | Encounter Summary ---
Demographics + + + | Address | [address] | | | [place] [address] | + + + | Home Phone [...] [place], [place] | | | | | [address] | | + + + + + | Lydia Palm | ECON | [place], [place] | | | | | [address] | | + + + + + | melinda britton | ECON | [place], [place] | | | "[place]" | | [address] | | + + + + + | Jose C Mejia | ECON | [address] | | | | | [place] | | | | | [address] | | + + + + + Care Team Providers + +------+ + | Care Bundle Tier And Labeler Name | Role | Phone | + [...] + + | 08/12/ | Telephone | [facility] | Qasim Pederson MD | Wound | | 2019 | | VASCULAR SURGERY | [address] | | | | | [address] | [place], [place] | | | | | [place], [place] | [address] | | | | | [address] | | | | | | [phone] | | | +--------+ + + + [...]
--- OUTSIDE RECORDS SUMMARY | ~2019-08-22 | XMS | Encounter Summary ---
Demographics + + + | Address | [address] | | | [place] [address] | + + + | Home Phone [...] [place], [place] | | | | | [address] | | + + + + + | Lydia Palm | ECON | [place], [place] | | | | | [address] | | + + + + + | melinda britton | ECON | [place], [place] | | | "[place]" | | [address] | | + + + + + | Jose C Mejia | ECON | [address] | | | | | [place] | | | | | [address] | | + + + + + Care Team Providers + +------+ + | Care Buzzsaw Operator Helper Name | Role | Phone | + +------+ + | No, Physician | PCP | Unavailable | + +------+ + Encounter Details +--------+ + + + + | Date | Type | Department | Care Team | Description | +--------+ + + + + | 06/21/ | Orders Only | [facility] | Kylie Alves DNP | | | 2019 | | VASCULAR SURGERY | [address] | | | | | ULTRASOUND [address] | [place] | | | | | [address] | [address] | | | | | [place] | | | | | | [address] | | | | | | [phone] | | | +--------+ + + + [...] Volume flow: 914 cc/min: Diameter: 7.6 mm. Purdum loop: | | | PSV: 52 cm/sec. [...] 914 cc/min: Diameter: 7.6 mm. | | Purdum loop: PSV: 52 cm/sec. Volume flow: 236 [...]
--- OUTSIDE RECORDS SUMMARY | ~2019-08-22 | XMS | Encounter Summary ---
Demographics + + + | Address | [address] | | | [place] [address] | + + + | Home Phone [...] [place], [place] | | | | | [address] | | + + + + + | Lydia Palm | ECON | [place], [place] | | | | | [address] | | + + + + + | melinda britton | ECON | [place], [place] | | | "[place]" | | [address] | | + + + + + | Jose C Mejia | ECON | [address] [place] | | | | | [place] | | | | | [address] | | + + + + + Care Team Providers + +------+ + | Care Pacs Specialist Name | Role | Phone | [...] | | | | | ([facility]) Wound | | | | [...] + + | 07/08/ | Hospital | [facility] | Qasim Pederson MD | ESRD on dialysis | | 2019 | Encounter | [facility] | [address] | ([facility]); Wound | | | | CARE [address]LO[address] | [place], [place] | infection after | | | | [address] | [address] | surgery | | | | [place], [place] | | | | | | [address] | | | | | | [phone] | | | +--------+ + + + [...] chamber of the vacuum Date Last Reviewed: 12/11/201619997418-4638 [employer]. [address] [place] [address]. All righ ts reserved. This information is not intended as a substitute for professional medical care. Always follow your healthcare professional's instructions. After Your Surgery You ve just had surgery. During surgery, you received medication called anesthesia to tom merrill you comfortable and pain-free. After surgery, you [...] Anexsia, Lorcet, Lorcet HD, Lorcet Plus, Lortab, [place], Verdrocet, Vicodin, Vi codin ES, Vicodin HP, [...] information carefully each time. Talk to your blasting entry specialist regarding the use of this medicine in children. Special care may be needed. What side effects may I notice from receiving this medicine? Side effects that you should report to your doctor or health critical care physician assistant as soon as p ossible: allergic [...] your doctor or health critical care physician assistant if they continue or are bothersome): [...] to an official disposal site. Contact the [facility] at [phone] or your the [facility] government to find a [...] your doctor or health critical care physician assistant if your pain does not go [...] not take more medicine than directed. Jak ramachandran emergency for help if you have problems [...] not stand or sit up quickly, gold ciavivianay if you are an older patient. This [...] behind the other ear. Talk to your blasting entry specialist regarding the use of this medicine in children. Special care may be needed. What side effects may I notice from receiving this medicine? Side effects that you should report to your doctor or health critical care physician assistant as soon as p ossible: agitation, nervousness, confusion blurred vision and other eye problems dizziness, drowsiness eye pain or redness in the whites of the eye hallucinations pain or difficulty passing urine skin rash, itching vomiting Side effects that usually do not require medical attention (report to your doctor or health critical care physician assistant if they continue or are bothersome): headache [...] PDTDischarge criteria met. No complications to surg [facility] site noted. Discharge instructions reviewed with the [...] [facility] | | | | performed at [facility];[address] | | LABORATORY | | | | Maksim Agarwal;[place] | | | | | | [address] | | | | + + + + + + + + | Specimen | + + | Blood | + + + + + + + | Performing | Address | City/State/Zipcode | Phone Number | | Organization | | | | + + + + + | [facility] | [address] | [place] [address] | [phone] | + + + + + documented [...] | | | | | | longer, wwxtxa-enm-jveaw use of | | | | | [...] | | | | | | | eeyype-bil-nenmt use of at least | | | [...]
--- OUTSIDE RECORDS SUMMARY | ~2019-08-22 | XMS | Encounter Summary ---
Demographics + + + | Address | [address] | | | [place] [address] | + + + | Home Phone [...] [place], [place] | | | | | [address] | | + + + + + | Lydia Palm | ECON | [place], [place] | | | | | [address] | | + + + + + | melinda britton | ECON | [place], [place] | | | "[place]" | | [address] | | + + + + + | Jose C Mejia | ECON | [address] [place] | | | | | [place] | | | | | [address] | | + + + + + Care Team Providers + +------+ + | Care Laborer Landscape Name | Role | Phone | + [...] + + | 07/06/ | Clinical | [facility] | Nidhi Whitaker, | ESRD (end stage | | 2019 | Support | VASCULAR SURGERY | RN | renal disease) on | | | | [address] | | dialysis (HCC) | | | | [place] | | (Primary Dx) | | | | [address] | | | | | | [phone] | | | +--------+ + + + [...] well. She had a disagreement with [facility] regarding her home bound status last [...] will be scheduled with [facility] [place] once surgery order [...]
--- OUTSIDE RECORDS SUMMARY | ~2019-08-22 | XMS | Encounter Summary ---
Demographics + + + | Address | [address] | | | [place] [address] | + + + | Home Phone [...] [place], [place] | | | | | [address] | | + + + + + | Lydia Palm | ECON | [place], [place] | | | | | [address] | | + + + + + | melinda britton | ECON | [place], [place] | | | "[place]" | | [address] | | + + + + + | Jose C Mejia | ECON | [address] [place] | | | | | [place] | | | | | [address] | | + + + + + Care Team Providers + +------+ + | Care Dental Chairside Assistant Name | Role | Phone | [...] | | | | | | | ([facility]) Wound | | | | | | [...] + + | 07/08/ | Anesthesia | [facility] | Claudia Cobb | | | 2019 | Event | [facility] | K, LEAF CONDITIONER HELPER [address] | | | | | OPER[address] RO[address] [place], [place] | | | | | [facility] | [id number] | | | | | [place], [place] | | | | | | [address] | | | | | | [phone] | | | +--------+ + + + + Anesthesia Record + + + + + | Procedure Name | Responsible | Anesthesia Start | Anesthesia Stop Time | | | Anesthesiologist | Time | | + + + + + | LEFT AXILLA WOUND | Claudia Cobb, | 07/08/19 1147 | 07/08/19 1302 | | DEBRIDEMENT, WASHOUT | LEAF CONDITIONER HELPER | | | | AND POSSIBLE WOUND [...] by | | | eral | Forearm; zacz-lco-wkiqhx catheter | Brandin Gray RN | | [...] | | | procedure documentation); Mask | LEAF CONDITIONER HELPER | LEAF CONDITIONER HELPER | | | Ventilation: N/A; Attempts: 1; [...] Performing provider: Claudia Cobb, | | | LEAF CONDITIONER HELPER Please see intraoperative grid for any additional [...] | | | | | PRN, Starting [facility] 07/08/19 at | | PDT | | | | | 1157, Anesthesia Intra-op | | | | | | + +-------+ +------+---+---+ +---+---+ | | | +---+---+ + +-------+ +-------+---+---+ | ePHEDrine in saline 5 mg/mL IV | Given | 07/08/20 | 15 mg | | | | syringe Intravenous, PRN, | | 19 12:03 | | | | | Starting [facility] 07/08/19 at 1203, | | PDT [...]
--- OUTSIDE RECORDS SUMMARY | ~2019-08-22 | XMS | Encounter Summary ---
Demographics + + + | Address | [address] | | | [place] [address] | + + + | Home Phone | | + + + | Preferred Language | Unknown | + + + | Marital Status | | + + + | Hoahaoism Affiliation | Unknown | + + + | Race | Unknown | + + + | Ethnic Group | Unknown | + + + Author + + + | Author | [employer] (Historical as of | | | 06-26-19) | + + + | Organization | [facility] (Historical as of | | | 06-26-19) | + + + | Address | Unknown | + + + | Phone | Unavailable | + + + Support + + + + + | Name | Relationship | Address | Phone | + + + + + | Lyubov Smalls | ECON | [place], [place] | | | | | [address] | | + + + + + | Lydia Palm | ECON | [place], [place] | | | | | [address] | | + + + + + | Jose C Oconnor | ECON | [address] [place] | | | | | [place] | | | | | [address] | | + + + + + Care Team Providers + +------+ + | Care Green End Department Supervisor Name | Role | Phone [...] + + | 05/26/ | Telephone | [facility] | Qasim Pederson MD | Paperwork (Face to | | 2019 | | Vascular Surgery | [address] | Face ) | | | | [address] | [place] | | | | | [facility] | [address] | | | | | [address] | | | | | | [phone] | | | +--------+ + + + [...]
--- OUTSIDE RECORDS SUMMARY | ~2019-08-22 | XMS | Encounter Summary ---
Demographics + + + | Address | [address] | | | [place] [address] | + + + | Home Phone [...] [place], [place] | | | | | [address] | | + + + + + | Lydia Palm | ECON | [place], [place] | | | | | [address] | | + + + + + | melinda britton | ECON | [place], [place] | | | "[place]" | | [address] | | + + + + + | Jose C Mejia | ECON | [address] | | | | | [place] | | | | | [address] | | + + + + + Care Team Providers + +------+ + | Care Beef Cattle Grazier Name | Role | Phone | + [...] | ([facility]) Wound | | | | | [...] + + | 07/08/ | Hospital | [facility] | Qasim Pederson MD | ESRD on dialysis | | 2019 | Encounter | [facility] | [address] | ([facility]LY [facility]); Wound | | | | CARE FLOOR [address] | [place], [place] | infection after | | | | [address] | [address] | surgery | | | | [place], [place] | | | | | | [address] | | | | | | [phone] | | | +--------+ + + + [...] chamber of the vacuum Date Last Reviewed: 12/11/201619997933-9226 The [employer]. [address] [place] [address]. All righ ts reserved. This information is [...] Anexsia, Lorcet, Lorcet HD, Lorcet Plus, Lortab, Sidney, Verdrocet, Vicodin, Vi codin ES, Vicodin HP, [...] information carefully each time. Talk to your records analysis manager regarding the use of this medicine in children. Special care may be needed. What side effects may I notice from receiving this medicine? Side effects that you should report to your doctor or health housekeeper child care as soon as p ossible: allergic [...] attention (report to your doctor or health housekeeper child care if they continue or are bothersome): [...] Contact the [facility] at [phone] or your [facility] government to find a site. If you [...] this medicine? Tell your doctor or health housekeeper child care if your pain does not go [...] behind the other ear. Talk to your records analysis manager regarding the use of this medicine in children. Special care may be needed. What side effects may I notice from receiving this medicine? Side effects that you should report to your doctor or health housekeeper child care as soon as p ossible: agitation, nervousness, confusion blurred vision and other eye problems dizziness, drowsiness eye pain or redness in the whites of the eye hallucinations pain or difficulty passing urine skin rash, itching vomiting Side effects that usually do not require medical attention (report to your doctor or health housekeeper child care if they continue or are bothersome): [...] PDTDischarge criteria met. No complications to [facility] site noted. Discharge instructions reviewed with the [...] [facility] | | | | performed at [facility];[address] | | LABORATORY | | | | [address];[place] | | | | | | [address] | | | | + + + + + + + + | Specimen | + + | Blood | + + + + + + + | Performing | Address | City/State/Zipcode | Phone Number | | Organization | | | | + + + + + | [facility] | [address] | [place] [address] | [phone] | + + + + + documented [...] | | | | | | longer, [id number]-vkh-[id number] use of | | | | | [...] | | | | | | | [id number]-[id number]-[id number] use of at least | | | [...]
--- OUTSIDE RECORDS SUMMARY | ~2019-08-22 | XMS | Encounter Summary ---
Demographics + + + | Address | [address] | | | [place] [address] | + + + | Home Phone | | + + + | Preferred Language | Unknown | + + + | Marital Status | | + + + | Methodist Affiliation | Unknown | + + + | Race | Unknown | + + + | Ethnic Group | Unknown | + + + Author + + + | Author | [facility] (Historical as of | | | 06-26-19) | + + + | Organization | [facility] (Historical as of | | | 06-26-19) | + + + | Address | Unknown | + + + | Phone | Unavailable | + + + Support + + + + + | Name | Relationship | Address | Phone | + + + + + | Lyubov Smalls | ECON | [place], [place] | | | | | [address] | | + + + + + | Lydia Palm | ECON | [place], [place] | | | | | [address] | | + + + + + | Jose C Oconnor | ECON | [address] | | | | | [place] | | | | | [address] | | + + + + + Care Team Providers + +------+ + | Care Emergency Service Restorer Name | Role | Phone | + [...] + + | 05/26/ | Surgery | [facility] | Qasim Pederson MD | WOUND VAC - | | 2019 | | [facility] | [address] | PLACEMENT - | | | | Operating Room [address] | [place], [place] | REPLACEMENT | | | | [address] | [address] | | | | | [place] [address] | | | | | | [phone] | | | +--------+---------+ + + + [...] chamber of the vacuum Date Last Reviewed: 12/11/201619994045-4618 The [employer]. [address] [place] [address]. All [facility] ts reserved. This information is not intended [...] information carefully each time. Talk to your community planner regarding the use of this medicine in children. Special care may be needed. What side effects may I notice from receiving this medicine? Side effects that you should report to your doctor or health child care centre manager as soon as p ossible: allergic reactions [...] to your doctor or health child care centre manager if they continue or are bothersome): constipation [...] to an official disposal site. Contact the [facility] at or your [facility] government to find a site. If [...] Tell your doctor or health child care centre manager if your pain does not go away, [...] after an initial decrease Date Last Reviewed: 02/08/201819994042-5306 [employer]. [address] [place] [address]. All righ ts reserved. This information is [...] information carefully each time. Talk to your community planner regarding the use of this medicine in children. Special care may be needed. What side effects may I notice from receiving this medicine? Side effects that you should report to your doctor or health child care centre manager as soon as p ossible: allergic reactions [...] to your doctor or health child care centre manager if they continue or are bothersome): constipation [...] to an official disposal site. Contact the [facility] at [phone] or your [facility] government to find a site. If [...] Tell your doctor or health child care centre manager if your pain does not go away, [...] pharmacist, or health care provider. Copyright 2019 [employer] in this encounter Medications at Time of [...] (H) | 3.5 - 4.9 mmol/L | [facility] | + + + + + | CHLORIDE | 100 | 99 - 109 mmol/L | [facility] | + + + + + | CO2 | 26 | 23 - 32 mmol/L | [facility] | + + + + + [...] 8.7 | 8.5 - 10.5 mg/dL | [facility] | + + + + + | EGFR | 4 (L)Comment: GFR <60: | >60 mL/min/1.73m2 | [facility] | | | CHRONIC [...] | | | | performed at [facility];[address] | | | | | [facility];[place], [place] | | | | | [address] | | | + + + + + + + | Specimen | + + | Blood | + + + + + + + | Performing | Address | City/State/Zipcode | Phone Number | | Organization | | | | + + + + + | [facility] | [address] | [place] [address] | | + + + + + test, serum (05/26/2019 1:48 PM) + + + + + | Component | Value | Ref Range | Performed At | + + + + + | TEST,SERUM | NEGATIVEComment: Testing | NEGATIVE | [facility] | | | performed at [facility];[address] | | | | | [address];[place] | | | | | [address] | | | + + + + + + + | Specimen | + + | Blood | + + + + + + + | Performing | Address | City/State/Zipcode | Phone Number | | Organization | | | | + + + + + | [facility] | [address] | [facility] [address] | | + + + + + [...] (L)Comment: GFR <60: | >60 mL/min/1.73m2 | [facility] | | | CHRONIC [...] | | | | performed at [facility];[address] | | | | | [facility];[place], [place] | | | | | [address] | | | + + + + + + + | Specimen | + + | Blood | + + + + + + + | Performing | Address | City/State/Zipcode | Phone Number | | Organization | | | | + + + + + | [facility] | [address] | [place] [address] | | + + + + + [...] | | | | | dose on [facility] 05/27/19 at 0630 | | | [...]
--- OUTSIDE RECORDS SUMMARY | ~2019-08-22 | XMS | Encounter Summary ---
Demographics + + + | Address | [address] | | | [place] [address] | + + + | Home Phone | | + + + | Preferred Language | Unknown | + + + | Marital Status | | + + + | Worship Affiliation | Unknown | + + + | Race | Unknown | + + + | Ethnic Group | Unknown | + + + Author + + + | Author | [facility] (Historical as of | | | 06-26-19) | + + + | Organization | [facility] (Historical as of | | | 06-26-19) | + + + | Address | Unknown | + + + | Phone | Unavailable | + + + Support + + + + + | Name | Relationship | Address | Phone | + + + + + | Lyubov Smalls | ECON | [place], [place] | | | | | [address] | | + + + + + | Lydia Palm | ECON | [place], [place] | | | | | [address] | | + + + + + | Jose C Oconnor | ECON | [address] | | | | | [place] | | | | | [address] | | + + + + + Care Team Providers + +------+ + | Care Medical Scientist Name | Role | Phone | [...] + + | 05/26/ | Anesthesia | [facility] | Louisa Ramos MD | | | 2019 | Event | [facility] | [address] | | | | | Operating Room [address] | [place] [address] | | | | | [address] | [phone] | | | | | [place] [address] | | | | | | [phone] | | | +--------+ + + + [...] by | | | | Left | Isable Mosqueda | | | | | MICHELLE [...] | | | | | 30 Minutes, Workers Compensation Attorney To Marilu Kendrick | | PDT | [...]
--- OUTSIDE RECORDS SUMMARY | ~2019-08-22 | XMS | Encounter Summary ---
Demographics + + + | Address | [address] | | | [place] [address] | + + + | Home Phone [...] [place], [place] | | | | | [address] | | + + + + + | Lydia Palm | ECON | [place], [place] | | | | | [address] | | + + + + + | melinda britton | ECON | [place], [place] | | | "[place]" | | [address] | | + + + + + | Jose C Mejia | ECON | [address] [place] | | | | | [place] | | | | | [address] | | + + + + + Care Team Providers + +------+ + | Care Nurse Clinical Name | Role | Phone | + [...] | ([facility]) Wound | | | | | | [...] + + | 07/08/ | Preadmit | [facility] | PoiQasim MD | | | 2019 | Visit | [facility] | [address] | | | | | CLINIC [address] | [place], [place] | | | | | [place], [place] | [id number] | | | | | [address] | | | | | | [phone] | | | +--------+ + + + [...] DAWNA | | | | performed at [facility];[address] | | LABORATORY | | | | [address];[place], [place] | | | | | | [address] | | | | + + + + + + + + | Specimen | + + | Blood | + + + + + + + | Performing | Address | City/State/Zipcode | Phone Number | | Organization | | | | + + + + + | [facility] | [address] | [place] [address] | [phone] | + + + + + Basic [...] | | | | performed at [facility] | | | | | | [facility];[place], [place] | | | | | | [address] | | | | + + + + + + + + | Specimen | + + | Blood | + + + + + + + | Performing | Address | City/State/Zipcode | Phone Number | | Organization | | | | + + + + + | [facility] | [address] | [place] [address] | [phone] | + + + + + CBC [...] | | | Absolute | performed at [facility];[address] | K/uL | LABORATORY | | | | [address];[place], [place] | | | | | | [address] | | | | + + + + + + + + | Specimen | + + | Blood | + + + + + + + | Performing | Address | City/State/Zipcode | Phone Number | | Organization | | | | + + + + + | [facility] | [address] | [place] [address] | [phone] | + + + + + ECG [...]
--- OUTSIDE RECORDS SUMMARY | ~2019-08-22 | XMS | Encounter Summary ---
Demographics + + + | Address | [address] | | | [place] [address] | + + + | Home Phone | | + + + | Preferred Language | Unknown | + + + | Marital Status | | + + + | Temple Affiliation | Unknown | + + + | Race | Unknown | + + + | Ethnic Group | Unknown | + + + Author + + + | Author | [facility] (Historical as of | | | 06-26-19) | + + + | Organization | [facility] (Historical as of | | | 06-26-19) | + + + | Address | Unknown | + + + | Phone | Unavailable | + + + Support + + + + + | Name | Relationship | Address | Phone | + + + + + | Lyubov Smalls | ECON | [place], [place] | | | | | [address] | | + + + + + | Lydia Palm | ECON | [place], [place] | | | | | [address] | | + + + + + | Jose C Oconnor | ECON | [address] | | | | | [place] | | | | | [address] | | + + + + + Care Team Providers + +------+ + | Care Roller Inspector Name | Role | Phone | [...] [address] | | | | | [place] | [address] [place], | | | | | [address] | [place] [address] | | | | | [phone] | [phone] | | | | | | | [...]
--- OUTSIDE RECORDS SUMMARY | ~2019-08-22 | XMS | Encounter Summary ---
Demographics + + + | Address | [address] | | | [place] [address] | + + + | Home Phone | | + + + | Preferred Language | Unknown | + + + | Marital Status | | + + + | Congregational Affiliation | Unknown | + + + | Race | Unknown | + + + | Ethnic Group | Unknown | + + + Author + + + | Author | [facility] (Historical as of | | | 06-26-19) | + + + | Organization | [facility] (Historical as of | | | 06-26-19) | + + + | Address | Unknown | + + + | Phone | Unavailable | + + + Support + + + + + | Name | Relationship | Address | Phone | + + + + + | Lyubov Smalls | ECON | [place], [place] | | | | | [address] | | + + + + + | Lydia Palm | ECON | [place], [place] | | | | | [address] | | + + + + + | Jose C Oconnor | ECON | [address] | | | | | [place] | | | | | [address] | | + + + + + Care Team Providers + +------+ + | Care Adjunct Instructor Chemistry Name | Role | Phone | + [...] + + | 05/26/ | Telephone | [facility] | Qasim Pederson MD | Other (Question) | | 2019 | | Vascular Surgery | [address] | | | | | [address] | [facility] | | | | | [place] [facility] [place] | [address] | | | | | [address] | | | | | | [phone] | | | +--------+ + + + [...]
--- OUTSIDE RECORDS SUMMARY | ~2019-08-22 | XMS | Encounter Summary ---
Demographics + + + | Address | [address] | | | [place] [address] | + + + | Home Phone [...] [place], [place] | | | | | [address] | | + + + + + | Lydia Palm | ECON | [place], [place] | | | | | [address] | | + + + + + | melinda britton | ECON | [place], [place] | | | "[place]" | | [address] | | + + + + + | Jose C Mejia | ECON | [address] [place] | | | | | [place] | | | | | [address] | | + + + + + Care Team Providers + +------+ + | Care Dynamometer Mechanic Name | Role | Phone | [...] + + | 07/22/ | Clinical | [facility] | Nidhi Whitaker, | Surgical wound | | 2019 | Support | VASCULAR SURGERY | RN | dehiscence, | | | | [address] | | subsequent encounter | | | | [place] | | (Primary Dx) | | | | [address] | | | | | | [phone] | | | +--------+ + + + [...] wound check/ wound vac. Patient is seeing [facility] out patient wound care 3 times a [...] Full report given to Elisha MARTINEZ at [facility] Unit CElisha will update brittany Vascular next [...]
--- OUTSIDE RECORDS SUMMARY | 2019-08-22 17:42 | XMS ---
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 Care History Medical/Surgical 02/01/[address] [facility] - CHW RECEIVED CASE MANAGEMENT CONSULT- DUE TO ED UTILIZATION. - CHW HAS CONTACT PATIENT PCP OFFICE AND PATIENT HAS BEEN FOLLOWING UP WITH PCP. - CHW DISCUSSED THE ED UTILIZATION WITH [facility] AND WITH PATIENT. 06/10/[address] [facility] - Patient has not followed up with PCP in regards to ED visits. Last time patient was seen by PCP was 06/10/17. - Patient has done multiple no shows to [facility]. - Patient has been seen by [facility] infectious disease for follow up by Dr Cathie Ochoa. 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 Care Recommendation: This patient has had 5 [...] providing care. E.D. VISIT COUNT ([address] [facility] [address] TOTAL 13 NOTE: Visits indicate total known visits. ED/UCC VISIT TRACKING (12 MO.) 08/22/2019 17:39 [facility] [place] TYPE: Emergency COMPLAINT: - ABD PAIN, VOMITING 08/10/2019 12:55 [facility] TYPE: Emergency DIAGNOSES: - Generalized abdominal pain - End stage renal disease - Abdominal Pain - Dependence on renal dialysis - Hyperkalemia - Oth noninflammatory disord of ovary, fallop and broad ligmt 05/07/2019 16:26 [facility] [place] TYPE: Emergency DIAGNOSES: - POST OP INJ - Other acute postprocedural pain 04/02/2019 10:18 [facility] TYPE: Emergency DIAGNOSES: - Hyperkalemia - diarrhea - abdominal pain - Elevated white blood cell count, unspecified - Nausea with vomiting, unspecified - Dependence on renal dialysis - Diarrhea, unspecified - nausea - End stage renal disease 03/31/2019 19:25 [facility] TYPE: Emergency DIAGNOSES: - Person w feared hlth complaint in whom no diagnosis is made - Vascular Access Problem - Encounter for other specified surgical aftercare 01/31/2019 18:35 [facility] TYPE: Emergency COMPLAINT: - VOMTING DIAGNOSES: - Elevated white blood cell count, unspecified - Other mailer (current) drug therapy - Right lower quadrant pain - Nausea with vomiting, unspecified - Dependence on renal dialysis - Essential (primary) hypertension - Unspecified kidney failure 01/31/2019 00:00 [facility] TYPE: Emergency 01/28/2019 20:41 [facility] [place] TYPE: Emergency COMPLAINT: - CHEST PAIN DIAGNOSES: - Other mailer (current) drug therapy - Chest pain, unspecified - Dependence on renal dialysis - Other chest pain - Essential (primary) hypertension 01/05/2019 00:37 [facility] TYPE: Emergency DIAGNOSES: - Dvtrcli of intest, part unsp, w/o perf or abscess w/o bleed - Abdominal Pain - Dependence on renal dialysis - End stage renal disease - Hypokalemia 01/04/2019 14:16 [facility] [place] TYPE: Emergency COMPLAINT: - DEHYDRATION/CONSTIPATION DIAGNOSES: - Essential (primary) hypertension - Dvtrcli of lg int w/o perforation or abscess w/o bleeding - Unspecified abdominal pain 12/31/2018 14:15 [facility] TYPE: Emergency COMPLAINT: - RESTLESS,DEHYDRATION DIAGNOSES: - Other mailer (current) drug therapy - Anxiety disorder, unspecified - Dependence on renal dialysis - Essential (primary) hypertension 12/24/2018 15:49 [facility] TYPE: Emergency COMPLAINT: - POSS DEHYDRATION DIAGNOSES: - 1 Hyp hrt and chr kdny dis w/o hrt fail, w stg 5 chr kdny/ESR - End stage renal disease - Nausea with vomiting, unspecified - Other mailer (current) drug therapy - Left upper quadrant pain - Dependence on renal dialysis 12[facility]07/2018 12:[facility] DIAGNOSES: - Spontaneous bacterial peritonitis - Abdominal Pain - Chest Pain - Bandemia - Dependence on renal dialysis - End stage renal disease INPATIENT VISIT TRACKING (12 MO.) 04/02/2019 10:18 [facility] DIAGNOSES: - Nausea with vomiting, unspecified - Dependence on renal dialysis - End stage renal disease - Elevated white blood cell count, unspecified - Hyperkalemia - Diarrhea, unspecified 02/01/2019 02:19 [facility] DIAGNOSES: - SIRS of non-infectious origin w/o acute organ dysfunction - Infect/inflm reaction due to periton dialysis catheter, init - Oth personal risk factors, not elsewhere classified - Leukocytosis - End stage renal disease - Oth disorders of plasma-protein metabolism, NEC - Anemia in chronic kidney disease - Noninflammatory disord of ovary, fallop \T\ broad ligmt, unsp 01/05/2019 00:37 [facility] [place] [facility]: [facility] DIAGNOSES: - Hypokalemia - Dependence on renal dialysis - End stage renal disease - Dvtrcli of intest, part unsp, w/o perf or abscess w/o bleed 12/24/2018 23:21 [facility] [facility]: General [facility] DIAGNOSES: - End stage renal disease - Unspecified abdominal pain - Dependence on renal dialysis - Anemia in chronic kidney disease - Other disorders of phosphorus metabolism - Oth disorders of plasma-protein metabolism, NEC 12/07/2018 12:34 [facility] TYPE: General Medicine DIAGNOSES: - End stage renal disease - Bandemia - Spontaneous bacterial peritonitis - Dependence on renal dialysis - Peritonitis, unspecified - Infect/inflm reaction due to periton dialysis catheter, subs - Anemia in chronic kidney disease [id number]
[2019-08-22] MEDS ORDERED: RENVELA800 MG PO (17:57)
[2019-08-22] MEDS ORDERED: ZOFRAN4 MG PO (22:08)
[2019-08-22] MEDS ORDERED: NORCO 5-325 TA1 EACH PO (22:08)
--- NOTE | 2019-08-23 15:40 | EKG ---
[facility] [address] [facility] [place] [address] Signed Normal sinus rhythm with sinus arrhythmia Right superior axis deviation Pulmonary disease pattern Right ventricular hypertrophy Abnormal ECG When compared with ECG of 31-JAN-2019 23:46, Questionable change in QRS axis T wave amplitude has increased in Inferior leads Nonspecific T wave abnormality, improved in Anterolateral leads QT has shortened Confirmed by NICK KINCAID MD ([id number]) on 08/23/2019 3:40:08 PM Electronically Signed By: NICK KINCAID MD 08/23/19 1540 PATIENT NAME: JOHN REEVES Electrocardiogram DATE OF : 76 PHYSICIAN: NICK KINCAID MD REPORT #: [id number] REPORT IS CONFIDENTIAL AND NOT TO BE RELEASED WITHOUT AUTHORIZATION
== END 2019-08-22 22:29 | disposition home or self-care (01) ==
LOC: ED 17:38
DX: R10.9 Unspecified abdominal pain (principal); Z99.2 Dependence on renal dialysis; I10 Essential (primary) hypertension; Z79.899 Other long term (current) drug therapy
CPT/HCPCS: 74176; 80048; 80053; 83690; 84703; 85025; 93005; 93010; 96374; 96375; 96376; 99284-25; J1170; J2405

== ENCOUNTER 2020-04-05 22:44 | Emergency (ER) | payer BC, OTHER ==
--- OUTSIDE RECORDS SUMMARY | ~2020-04-05 | XMS | Encounter Summary ---
Demographics + + + | Address | [address] | | | [place] [address] | + + + | Home Phone | | + + + | Preferred Language | Unknown | + + + | Marital Status | | + + + | Mosque Affiliation | Unknown | + + + | Race | Unknown | + + + | Ethnic Group | Unknown | + + + Author + + + | Author | [facility] | | | and [place] | + + + | Organization | [facility] | | | and [place] | + + + | Address | Unknown | + + + | Phone | Unavailable | + + + Support + + + + + | Name | Relationship | Address | Phone | + + + + + | Lyubov Smalls | ECON | [place], [place] | | | | | [address] | | + + + + + | Lydia Palm | ECON | [place], [place] | | | | | [address] | | + + + + + | melinda METZ" | ECON | [place], [place] | | | [place]ba | | [address] | | + + + + + | Jose C Oconnor | ECON | [address] [place] | | | | | [place] | | | | | [address] | | + + + + + Care Team Providers + +------+ + | Care Applications Trainer Name | Role | Phone | + +------+ + | Unknown, Physician | PCP | | + +------+ + Encounter Details +--------+ + + + + | Date | Type | Department | Care Team | Description | +--------+ + + + + | 02/15/ | Transcribed | [facility] | Echaiz Correa, | Peritonitis | | 2019 | Orders | MED [facility] OP [facility]FUSION | Alonzo Jasso MD | associated with | | | | [address] | [address] | peritoneal dialysis, | | | | [place] [address] | [place] [address] | initial encounter | | | | [address] | [phone] | ([facility]) | | | | [phone] | | | +--------+ + + + + Social History + +-------+ +--------+------+ | Tobacco Use | Types | Packs/Day | Years | Date | | | | | Used | | + +-------+ +--------+------+ | Never Smoker | | | | | + +-------+ +--------+------+ + + +---------+ + | Alcohol Use | Drinks/Week | oz/Week | Comments | + + +---------+ + | No | | | | + + +---------+ + + + + | Sex Assigned at | Date Recorded | | | | + + + | Not on file | | + + + + + + + | Job Start Date | Occupation | Industry | + + + + | Not on file | Not on file | Not on file | + + + + + + + + | Travel History | Travel Start | Travel End | + + + + + + | No recent travel history available. | + + documented as of this encounter Plan of Treatment Not on filedocumented as of this encounter Visit Diagnoses + + | Diagnosis | + + | Peritonitis associated with peritoneal dialysis, initial encounter (HCC) | + + documented in this encounter
--- OUTSIDE RECORDS SUMMARY | ~2020-04-05 | XMS | Encounter Summary ---
Demographics + + + | Address | [address] | | | [place] [address] | + + + | Home Phone | | + + + | Preferred Language | Unknown | + + + | Marital Status | | + + + | Holiness Affiliation | Unknown | + + + | Race | Unknown | + + + | Ethnic Group | Unknown | + + + Author + + + | Author | [facility] | | | and [place] | + + + | Organization | [facility] | | | and [place] | + + + | Address | Unknown | + + + | Phone | Unavailable | + + + Support + + + + + | Name | Relationship | Address | Phone | + + + + + | Lyubov Smalls | ECON | [place], [place] | | | | | [address] | | + + + + + | Lydia Palm | ECON | [place], [place] | | | | | [address] | | + + + + + | melinda METZ" | ECON | [place], [place] | | | reba | | [address] | | + + + + + | Jose C Oconnor | ECON | [place] | | | | | [place] | | | | | [address] | | + + + + + Care Team Providers + +------+ + | Care All Purpose Clerk Name | Role | Phone | + +------+ + | Juan F Whitley DO | PCP | | + +------+ + Reason for Visit Evaluate & Treat (Routine) +--------+--------+ + + + + | Status | Reason | Specialty | Diagnoses / | Referred By | Referred To | | | | | Procedures | Contact | Contact | +--------+--------+ + + + + | Closed | | Infusion | Diagnoses | [facility] | [facility] | | | | Therapy | Dr. Rosado | lAonzo Correa | Infusion [address] | | | | | Sunny | Romero | Patricia Hsihe | | | | | Meropenem | [address] | [address], | | | | | daily thru | [address] | [place] [address] | | | | | February 23, | [place], [place] | Phone: | | | | | Peritonitis | [address] | [phone] | | | | | Procedures | Phone: | Fax: | | | | | [place] | [phone] | [phone] | | | | | MEROPENEM, | Fax: | | | | | | [address] [place] | [phone] | | | | | | IV INFUSION, | | | | | | | | | | | | | | THERAP/PROPH | | | | | | | /DIAGNOST,IN | | | | | | | ITIAL,1ST | | | | | | | HOUR [facility] | | | | | | | INF ABX | | | | | | | SERIES 1 | | | | | | | ONLY | | | +--------+--------+ + + + + Encounter Details +--------+ + + + + | Date | Type | Department | Care Team | Description | +--------+ + + + + | 02/17/ | Hospital | [facility] | Jeovanny Correa, | Peritonitis | | 2019 | Encounter | [facility] OP INFUSION | Alonzo Jasso MD | associated with | | | | [address] | [address] | peritoneal dialysis, | | | | GARRISON Solorzano | [place] [address] | initial encounter | | | | [address] | [phone] | (HCC) (Primary Dx) | | | | [phone] | | | +--------+ + + + [...] + + + | Blood Pressure | 103/62 | 02/17/2019 6:10 PM | | | | | PDT | | + + + + + | Pulse | 81 | 02/17/2019 6:10 PM | | | | | PDT | | + + + + + | Temperature | 36.4 C (97.5 F) | 02/17/2019 5:31 PM | | | | | PDT | | + + + + + | Respiratory Rate | 16 | 02/17/2019 6:10 PM | | | | | PDT | | + + + + + | Oxygen Saturation | 98% | 02/17/2019 5:31 PM | | | | | PDT | | + + + + + | Inhaled Oxygen | - | - | | | Concentration | | | | + + + + + | Weight | - | - | | + + + + + | Height | - | - | | + + + + + | Body Mass Index | - | - | | + [...] + + documented as of this encounter Progress Notes Gifty Diaz RN - 02/17/2019 6:12 PM PDTFormatting of this note might be diffe rent from the original. Vitals: 02/17/191 02/17/191809 BP: 111/62 103/62 Pulse: 91 81 Resp: 16 16 Temp: 36.4 C (97.5 F) TempSrc: Oral SpO2: 98% Administrations This Visit meropenem (MERREM) 500 mg in sodium chloride 0.9% 50 mL IVPB Admin Date 02/17/2019 Action New Bag Dose 500 mg Rate 50 mL/hr Route Intravenous Administered By Gifty Diaz RN Monitored throughout treatment; treatment completed without untoward effects from medicatio n noted. Next visit tomorrow 1730. Verbalizes understanding of plan of care. VS stable. Disc harged ambulatory with spouse to home in stable condition. Electronically signed by: Gifty Diaz RN 02/17/2019 18:12 mily, Gifty Diaz RN - 019 5:33 PM PDT Vitals: 02/17/19 1731 BP: 111/62 Pulse: 91 Resp: 16 Temp: 36.4 C (97.5 F) Ramona Oconnor received into room 442, independent ambulation accompanied by spouse. State s here for antibiotic infusion. Reports no change in condition, plan of care since last MD ruchi simental. Alert, oriented x 4, cooperative. Electronically signed by: Gifty Diaz RN 02/17/2019 17:33 documented in this encounter Plan of Treatment Not on filedocumented as of this encounter Visit Diagnoses + + | Diagnosis | + + | Peritonitis associated with peritoneal dialysis, initial encounter (HCC) - Primary | + + documented in this encounter Administered Medications + +---------+ +--------+ +------+ | Medication Order | MAR | Action | Dose | Rate | Site | | | Action | Date | | | | + +---------+ +--------+ +------+ | meropenem (MERREM) 500 mg in | New Bag | 02/18/20 | 500 mg | 50 mL/hr | | | sodium chloride 0.9% 50 mL IVPB | | 19 5:33 | | | | | 500 mg, Intravenous, Administer | | PM PDT | | | | | over 60 Minutes, ONCE, Wed | | | | | | | 02/17/19 at 1740, For 1 dose, | | | | | | | Visit dosing schedule: Every 8 | | | | | | | hours Activate system and mix | | | | | | | before use., Indications: | | | | | | | Infection | | | | | | + +---------+ +--------+ +------+ +---+---+ | | | +---+---+ documented in this encounter
--- OUTSIDE RECORDS SUMMARY | ~2020-04-05 | XMS | Encounter Summary ---
Demographics + + + | Address | [address] | | | [place] [address] | + + + | Home Phone | | + + + | Preferred Language | Unknown | + + + | Marital Status | | + + + | Uatsdin Affiliation | Unknown | + + + | Race | Unknown | + + + | Ethnic Group | Unknown | + + + Author + + + | Author | [facility] | | | and [place] | + + + | Organization | [facility] | | | and [place] | + + + | Address | Unknown | + + + | Phone | Unavailable | + + + Support + + + + + | Name | Relationship | Address | Phone | + + + + + | Lyubov Smalls | ECON | [place], [place] | | | | | [address] | | + + + + + | Lydia Palm | ECON | [place], [place] | | | | | [address] | | + + + + + | melinda METZ" | ECON | [place], [place] | | | [place] | | [address] | | + + + + + | Jose C Oconnor | ECON | [place] | | | | | [place] | | | | | [address] | | + + + + + Care Team Providers + +------+ + | Care Real Estate Services Coordinator Name | Role | Phone | + +------+ + PCP | Unavailable | + +------+ + Encounter Details +--------+ + + + + | Date | Type | Department | Care Team | Description | +--------+ + + + + | 10/26/ | Hospital | [facility] | Santos Chi MD | | | 2014 | Encounter | [facility] | [address] [facility] | | | | | SPECIMEN PROCESS | [address] [place], [place] | | | | | [address] | [address] | | | | | [place] | | | | | | [address] | Cesar Gatica MD | | | | | [phone] | [address] [facility] | | | | | | [place] [address] | | | | | | [phone] | | | | | | | | +--------+ + + + + Social History + +-------+ +--------+------+ | Tobacco Use | Types | Packs/Day | Years | Date | | | | | Used | | + +-------+ +--------+------+ | Never Assessed | | | | | + +-------+ +--------+------+ + + + | Sex Assigned at [...] | + +--------+ + + + | SURGICAL PATHOLOGY | Routin | 10/26/2015 | | Results for this | | EXAM | e | 12:01 AM | | procedure are in the | | | | PST | | results section. | + +--------+ + + + documented in this encounter Results Surgical Pathology Exam (10/26/2015 12:01 AM PST) + + | Specimen | + + | | + + + + + | Narrative | Performed At | + + + | SURGICAL PATHOLOGY REPORT | [facility] | | Date Taken: 10/26/2015 Date Received: | [facility] | | 10/26/2015 Completed: 10/29/2015 Physician: SANTOS CHI Copy | [facility] | | to: Ami Chavez MD DIAGNOSIS: Kidney, biopsy - | LABORATORY | | Less than optimal tissue sampling for histologic examination | | | and inadequate tissue for immunofluorescence studies. - | | | Global glomerulosclerosis (5/6). - Acute tubular injury with | | | desquamated cell casts. - Medullary interstitial nephritis. - | | | Tubular atrophy and interstitial fibrosis (70% of a limited | | | cortical sampling). 0 COMMENT: The examined tissue is | | | predominantly renal medulla with only a small area of cortex visible | | | in paraffin section, and none for immunofluorescence studies. The | | | cortical tissue examined is sclerotic. In the medulla we find some | | | interstitial inflammation and acute tubular injury which could be due | | | to a variety of causes, including immune mediated kidney disease, | | | vasculitides, toxicity and hypersensitivity. Electron microscopy | | | studies are pending at the time of this report. Those results will | | | be forwarded in an addendum. Adonay Jung MD | | | Electronic signature GROSS DESCRIPTION: Three specimens are | | | received; each labeled and designated "Goatsen, kidney nikolai". | | | Specimen received in formalin consists of three 1.2 cm in length | | | cores of tissue. Entirely submitted for light microscopy in "A1". | | | Specimen received in [place] solution consists of a 0.7 cm in length | | | core of tissue. Entirely submitted for immunofluorescence studies. | | | Specimen received in glutaraldehyde consists of a 0.2 cm in | | | length core of tissue. Entirely submitted for electron microscopy. | | | (MS) Clinical History: The patient is a 35-year-old female who | | | recently presented to medical care with a chief complaint of itching. | | | The current medial problems include: obesity and tobacco use. | | | Laboratory studies reveal the serum creatinine of 17. Urinalysis | | | reveal large blood and 100mg per/dL protein. Her serum albumin is | | | depressed at 3.3 and hemoglobin is quite low at 6.7. Her blood | | | pressure on evaluation was 144/85. MICROSCOPIC DESCRIPTION: | | | Thee core segments of renal tissue are examined in serial section | | | using PAS, trichrome, and Smalls methenamine silver in addition to H&E | | | stains. The tissue is predominantly medulla; however, cortex is | | | present on a single core, approximately 20% of the core. Six | | | glomeruli are found, of which 5 are globally sclerotic remnants. The | | | sixth is a partial glomerulus at a core edge showing prominent | | | mesangial expansion. No basement membrane abnormalities are detected | | | on Smalls stains in the patent capillary loops. No evidence of | | | crescents is identified in the globally sclerotic glomeruli. The | | | cortex shows diffuse interstitial expansion with fibrosis and | | | associated mixed phagocytic infiltrates with small lymphocytes | | | predominating. There is extensive tubular atrophy. An interlobular | | | artery identified at the deep cortex shows mild intimal fibroplasia. | | | Residual tubules within the cortex and tubules forming the loops of | | | Henle show acute tubular injury and repair. Scattered tubules contain | | | desquamated cell debris. A few of these have a coarse granular | | | character reminiscent of myoglobin casts, but in this setting, they | | | are likely cell debris. A myoglobin immunohistochemical stain has | | | been requested. No tubular inflammation or crystalline deposits are | | | found. There are patchy mixed inflammatory infiltrates in the | | | medulla and similar coarsely granular casts are seen in loops of | | | Henle. The interstitial infiltrates include lymphocytes, histiocytes, | | | eosinophils, and neutrophils. No vasculitis is found. | | | IMMUNOFLUORESCENCE: The specimen for immunofluorescence is | | | inadequate. It consists of a single core fragment of medullary tissue | | | only. No glomeruli are present. Immunofluorescence studies are not | | | performed. A: 68028, 57835(9), 76855, 79858, | | | 76096, 33105, 76779(9) <CR>, 33535(d), 31981(d) <CR>, 57887(d), | | | 43960(d) <CR> PROCEDURES/ADDENDA | | | ELECTRON MICROSCOPY DIAGNOSIS: Electron microscopy diagnoses: - | | | Global and segmental glomerular sclerosis. - No | | | evidence of immune deposits or basement membrane abnormality in scant | | | residual patent capillary loops. 0 (11/07/15-kk) | | | COMMENT: Ultrastructural examination is limited due to the | | | extensive sclerosis. However, the EM findings make a primary immune | | | mediated glomerular disease unlikely. DISCUSSION: Two | | | plastic embedded tissue blocks are examined in multiple level | | | sections to look for patent glomeruli for study. At least three | | | globally sclerotic glomeruli are identified in level sections. One | | | glomerulus contains a few intact capillary loops and these areas are | | | thin sectioned for ultrastructural examination. On electron | | | microscopy, the intact capillary loops show a basement membrane of | | | uniform and normal thickness and composition. No immune deposits | | | are seen with the patent capillary miller. Dense osmophilic material | | | is noted within sclerotic segments, most suggestive of hyaline | | | deposition. There is no evidence of glomerular basement membrane | | | breaks or fibrin tactoids. The visceral epithelial foot processes | | | are largely effaced along the residual patent capillaries, with | | | associated microvillous alteration of the epithelial cell cytoplasm. | | | Adonay Jung MD Testing performed at: [place] | | | [facility] Vance Dewitt M.D., | | | Director [address] [place] [address] Ave [address] [place] [address] Phone: | | | | | + + + + + + + + | Performing | Address | City[facility]State[facility] | Phone Number | | Organization | | | | + + + + + | [facility] | [address] | [place] [address] | | | [facility] | | | | | LABORATORY | | | | + + + + + documented in this encounter Visit Diagnoses Not on filedocumented in this encounter
--- OUTSIDE RECORDS SUMMARY | ~2020-04-05 | XMS | Encounter Summary ---
Demographics + + + | Address | [address] | | | [place] [address] | + + + | Home Phone | | + + + | Preferred Language | Unknown | + + + | Marital Status | | + + + | Faith Affiliation | Unknown | + + + | Race | Unknown | + + + | Ethnic Group | Unknown | + + + Author + + + | Author | [facility] | | | and [place] | + + + | Organization | [facility] | | | and [place] | + + + | Address | Unknown | + + + | Phone | Unavailable | + + + Support + + + + + | Name | Relationship | Address | Phone | + + + + + | Lyubov Smalls | ECON | [place], [place] | | | | | [address] | | + + + + + | Lydia Palm | ECON | [place], [place] | | | | | [address] | | + + + + + | melinda METZ" | ECON | [place], [place] | | | [place] | | [address] | | + + + + + | Jose C Oconnor | ECON | [place] | | | | | [place] | | | | | [address] | | + + + + + Care Team Providers + +------+ + | Care Relaster Name | Role | Phone | + +------+ + | No, Physician | PCP | Unavailable | + +------+ + Reason for Visit + + + | Reason | Comments | + + + | Follow-up | 2 wk f/u wound vac | + + + Encounter Details +--------+---------+ + + + | Date | Type | Department | Care Team | Description | +--------+---------+ + + + | 09/28/ | Office | [facility] | Man Jeronimo, | Infection of | | 2019 | Visit | VASCULAR SURGERY | PA-C [address] | arteriovenous | | | | [address] | [address] [place], | dialysis fistula, | | | | [place], [place] | [place] [address] | subsequent encounter | | | | [address] | [phone] | (Primary Dx) | | | | [phone] | | | +--------+---------+ + + + Social History + +-------+ [...] Comments | + + +---------+ + | Yes | | | Alcoholic | | | [...] this encounter Last Filed Vital Signs + +---------+ + + | Vital Sign | Reading | Time Taken | Comments | + +---------+ + + | Blood Pressure | 132/72 | 09/28/2019 1:02 PM | | | | | PST | | + +---------+ + + | Pulse | 84 | 09/28/2019 1:02 PM | | | | | PST | | + +---------+ + + | Temperature | - | - | | + +---------+ + + | Respiratory Rate | - | - | | + +---------+ + + | Oxygen Saturation | 99% | 09/28/2019 1:02 PM | | | | | PST | | + +---------+ + + | Inhaled Oxygen | - | - | | | Concentration | | | | + +---------+ + + | Weight | - | - | | + +---------+ + + | Height | - | - | | + +---------+ + + | Body Mass Index | - | - | | + +---------+ + + documented in this encounter Functional Status + + + + | Functional Status | Response | Date of Assessment | + + + + | Are you deaf or do you have serious | No | 08/28/2019 | | difficulty hearing? | | | + + + + | Are you blind or do you have serious | No | 08/28/2019 | | difficulty seeing, even when wearing | | | | glasses? | | | + + + + | Do you have serious difficulty walking or | No | 08/28/2019 | | climbing stairs? (5 years old or older) | | | + + + + | Do you have difficulty dressing or bathing? | No | 08/28/2019 | | (5 years old or older) | | | + + + + | Because of a physical, mental, or emotional | Yes - mom drives to | 08/28/2019 | | condition, do you have difficulty doing | appointments | | | errands alone such as visiting a doctor's | | | | office or shopping? [15 years old or | | | | older)] | | | + + + + + + + + | Cognitive Status | Response | Date of Assessment | + + + + | Because of a physical, mental, or emotional | No | 08/28/2019 | | condition, do you have serious difficulty | | | | concentrating, remembering, or making | | | | decisions? (5 years old or older) | | | + + + + documented as of this encounter Progress Notes Man Jeronimo PA-C - 09/28/2019 1:[address] [facility] [address] [place] [address] Office: [phone] DATE OF VISIT: 09/28/2019 PATIENT NAME: Ramona Oconnor : 1980; AGE: 39 y.o.; Sex:F PHONE NUMBER: PHYSICIAN: Man Jeronimo PA-C PRIMARY CARE / REFERRING PHYSICIAN: No ref. provider found / No Physician on file REASON FOR EVALUATION / CHIEF COMPLAINT: Vascular Surgery follow up visit HISTORY OF PRESENT ILLNESS: The patient presents today for a Vascular Surgery follow up visit. She is well known to our service. The patient is39 y.o.femalewith significant past medical history of HTN and ESRDwho presented to [facility] ED with fever and chills with concern for infection of left arm AV graft. She initially had the left arm AV graft created using bovine carotid artery in J une 27. The operation was complicated by wound dehiscence and patient taken to the OR on for wound washout and vac placement. After few weeks of wound vac, patient was taken b ack to the OR on 07/08 due to the graft being exposed for another washout and replacement of wound vac. Wound vac was eventually removed. Patient was seen in clinic on 08/24 for ano ther wound check and graft was seen exposed in the wound. Patient was scheduled for anothe r wound washout, graft removal, and wound vac placement. However, on 08/26 patient was emerg ently transferred to [facility] for severe bleeding from left axilla. She was taken to the OR for graft ligation. However, the graft was not removed and wound was closed. She underwent r emoval of graft and wound vac placement x 2 on 09/03/2019. Since her discharge, she was been doing well. She had one wound vac removed about one week ago and the axillary wound vac rem ains. Denies any fever, chills, night sweats. VITAL SIGNS: BP 132/72 | Pulse 84 | SpO2 99% PHYSICAL EXAM: Vitals:reviewed CONSTITUTIONAL: Conversant, well developed, NAD EYES: Anicteric sclerae, no lid drag, no proptosis RESP: Normal effort, regular, even, unlabored rate CV: No peripheral edema, rate regular SKIN: [place], warm, dry without rash/lesion MS: ROM not limited, no digital cyanosis, normal gait NEURO: Conversant, A&O times 3 PSYCH: appropriate affect, speech and tone, judgement and insight intact Vascular:Wound vac holding suction in left axilla. Wound vac removed and wound shows go od granulation tissue, 1.5 cm x 1.5 cm x 0.2 cm. Distal wound is nearly healed. [place] in p lace and were removed. Distal pulses intact. No swelling noted. ASSESSMENT AND PLAN: Infection of previously ligated arteriovenous graft / Sepsis - She is doing well post opera tively. Her wound vac is holding suction. Her distal wound vac dressing was removed and she has minimal wound up in her axilla now, measuring 1.5 cm x 1.5 cm x 0.2 cm, with good granul ation tissue exposed. We will continue her wound vac given her history of multiple surgeries in that area. Her nate were removed and her incision line is healing well. Wound vac for one more week, follow up in two weeks. We had a discussion regarding her future AV access, which she would like to discuss at her next appt. She will likely need a graft placement in her right arm. HINA Brock-C Tdocumented in this encounter Plan of Treatment Not on filedocumented as of this encounter Visit Diagnoses + + | Diagnosis | + + | Infection of arteriovenous dialysis fistula, subsequent encounter - Primary | + + documented in this encounter
--- OUTSIDE RECORDS SUMMARY | ~2020-04-05 | XMS | Encounter Summary ---
Demographics + + + | Address | [address] | | | [place] [address] | + + + | Home Phone | | + + + | Preferred Language | Unknown | + + + | Marital Status | | + + + | Mandaeism Affiliation | Unknown | + + + | Race | Unknown | + + + | Ethnic Group | Unknown | + + + Author + + + | Author | [facility] | | | and [place] | + + + | Organization | [facility] | | | and [place] | + + + | Address | Unknown | + + + | Phone | Unavailable | + + + Support + + + + + | Name | Relationship | Address | Phone | + + + + + | Lyubov Smalls | ECON | [place], [place] | | | | | [address] | | + + + + + | Lydia Palm | ECON | [place], [place] | | | | | [address] | | + + + + + | melinda METZ" | ECON | [place], [place] | | | reba | | [address] | | + + + + + | Jose C Oconnor | ECON | [place] | | | | | [place] | | | | | [address] | | + + + + + Care Team Providers + +------+ + | Care Heater Room Helper Name | Role | Phone | + [...] | | | | Diagnoses | | | | | | | ESRD on | | | | | | | dialysis | | | | | | | ([facility]) Wound | | | | | | | infection | | | | | | | after | | | | | | | surgery | | | | | | | Procedures | | | | | | | HC | | | | | | | DEBRIDEMENT | | | | | | | OPEN WOUND | | | | | | | 20 SQ CM/< | | | | | | | LEFT AXILLA | | | | | | | WOUND | | | | | | | DEBRIDEMENT, | | | | | | | WASHOUT AND | | | | | | | POSSIBLE | | | | | | | WOUND VAC | | | | | | | PLACEMENT | | | +--------+--------+ + + + + Encounter Details +--------+---------+ + + + | Date | Type | Department | Care Team | Description | +--------+---------+ + + + | 07/08/ | Surgery | [facility] | Qasim Pederson MD | LEFT AXILLA WOUND | | 2019 | | [facility] | [address] | DEBRIDEMENT, WASHOUT | | | | OPERATING ROOM [address] | [address] [place], [place] | AND POSSIBLE WOUND | | | | [address] | [address] | VAC PLACEMENT | | | | [place], [place] | | | | | | [address] | | | | | | [phone] | | | +--------+---------+ + + + [...] + + + | Blood Pressure | 106/58 | 07/08/2019 2:45 PM | | | | | PDT | | + + + + + | Pulse | 79 | 07/08/2019 2:45 PM | | | | | PDT | | + + + + + | Temperature | 36.6 C (97.9 F) | 07/08/2019 2:45 PM | | | | | PDT | | + + + + + | Respiratory Rate | 20 | 07/08/2019 2:15 PM | | | | | PDT | | + + + + + | Oxygen Saturation | 96% | 07/08/2019 2:45 PM | | | | | PDT | | + + + + + | Inhaled Oxygen | - | - | | | Concentration | | | | + + + + + | Weight | 84.2 kg (185 lb 10 | 07/08/2019 10:28 AM | | | | oz) | PDT | | + + + + + | Height | 157.5 cm (5' 2") | 07/08/2019 10:28 AM | | | | | PDT | | + + + + + | Body Mass Index | 33.95 | 07/08/2019 10:28 AM | | | | | PDT | | + + + + + documented in this encounter Discharge Instructions Instructions Alyce Herron RN - 07/08/2019Formatting of this note might be different f rom the original. Vacuum-Assisted Closure of a Wound Vacuum-assisted closure (VAC) of a wound is a type of treatment to help wounds heal. It s also known as negative pressure wound therapy. During the treatment, a device lowers air pr essure on the wound. This can help the wound heal more quickly. Understanding the wound VAC system A wound VAC system has several parts. A foam or gauze dressing is put directly on the wound . The dressing is changed every 24 to 72 hours. An adhesive film covers and seals the dressi ng and wound. A drainage tube leads from under the adhesive film and connects to a portable vacuum pump. This pump removes air pressure over the wound. It may do this constantly. Or it may do it in cycles. During the treatment, you ll need to carry the portable pump everywh ere you go. Why wound VAC is used You might need this therapy for a recent traumatic wound. Or you may need it for a chronic wound. This is a wound that does not heal the way it should over time. This can happen with wounds in people who have diabetes. You may need a wound VAC if you ve had a recent skin g raft. And you may need a wound VAC for a large wound. Large wounds can take a longer time to heal. A wound vacuum system may help your wound heal more quickly by: Draining extra fluid from the wound Reducing swelling Reducing bacteria in the wound Keeping your wound moist and warm Helping draw together wound edges Increasing blood flow to your wound Decreasing inflammation Wound VAC offers some other advantages over other types of wound care. It may decrease your overall discomfort. The dressings usually need to be changed less often. And they may be ea sier to keep in place. Risks of wound VAC Wound VAC has some rare risks, such as: Bleeding (which may be severe) Wound infection An abnormal connection between the intestinal tract and the skin (enteric fistula) Proper training in dressing changes can help reduce the risk for these complications. Also, your healthcare provider will carefully evaluate you to make sure you are a good candidate for the therapy. Certain problems can increase your risk for complications. These include: Exposed organs or blood vessels High risk of bleeding from another medical problem Wound infection Nearby bone infection wound tissue Cancer tissue Fragile skin, such as from aging or longtime use of topical steroids Allergy to adhesive Very poor blood flow to your wound Wounds close to joints that may reopen because of movement Your healthcare provider will discuss the risks that apply to you. Make sure to talk with h im or her about all of your questions and concerns. Getting ready for wound VAC You likely won t need to do much to get ready for wound VAC. In some cases, you may need to wait a while before having this therapy. For example, your healthcare provider may first need to treat an infection in your wound. or damaged tissue may also need to be removed from your wound. You or a caregiver may need training on how to use the wound VAC device. This is done if yo u will be able to have your wound vacuum therapy at home. In other cases, you may need to carrillo ve your wound vacuum therapy in a healthcare facility. On the day of your procedure A healthcare provider will cover your wound with foam or gauze wound dressing. An adhesive film will be put over the dressing and wound. This seals the wound. The foam connects to a d rainage tube, which leads to a vacuum pump. This pump is portable. When the pump is turned o n, it draws fluid through the foam and out the drainage tubing. The pump may run constantly, or it may cycle off and on. Your exact setup will depend on the specific type of wound vacu um system that you use. Managing your wound You may need the dressing changed about once a day. You may need it changed more or less of ten, depending on your wound. You or your caregiver may be trained to do this at home. Or it may be done by a visiting healthcare provider. Your provider may prescribe a pain medicine. This is to prevent or reduce pain during the dressing change. You will likely need to use the wound VAC system for several weeks or months. During this t gordy, you ll carry the portable pump everywhere you go. Nutrition for wound healing During this time, make sure you follow a healthy diet. This is needed so the wound can heal and to prevent infection. Your healthcare provider can tell you more about what to include in your diet during this time. Follow up with your healthcare provider if you have a medical condition that led to your wo und, such as diabetes. Your provider can help you prevent future wounds. Follow-up care Your healthcare provider will carefully keep track of your healing. Make sure to keep all f ollow-up appointments. When to call your healthcare provider Call your healthcare provider right away if you have any of these: Fever of 100.4F (38.0C) or higher Increased redness, swelling, or warmth around wound Increased pain Bright red blood or blood clots in tubing or the collection chamber of the vacuum Date Last Reviewed: 12/11/201619991642-0479 [employer]. [address] [place] [id number]. All righ ts reserved. This information is not intended as a substitute for professional medical care. Always follow your healthcare professional's instructions. After Your Surgery You ve just had surgery. During surgery, you received medication called anesthesia to tom p you comfortable and pain-free. After surgery, you may experience some pain or nausea. This is common. Going Home Have an adult family member or friend drive you home. For the first 24 hours after your janine viviana: ? Do not drive or use heavy equipment. ? Do not make important decisions or sign legal documents. ? Avoid alcohol. ? Have someone stay with you, if needed. He or she can watch for problems and help keep you safe. Be sure to keep all follow-up appointments with your doctor. And rest after your procedure for as long as your doctor tells you to. Coping with Pain If you have pain after surgery, pain medication will help you feel better. Take your medica tion as directed, before pain becomes severe. Consider other ways to control pain, such as with heat, ice, and relaxation. To get the best relief possible, remember these points: ? Pain medications can upset your stomach. Taking them with a little food may help. ? Most pain relievers taken by mouth need at least 20 to 30 minutes to take effect. ? Taking medication on a schedule can help you remember to take it. Try to time your medica tion so that you can take it before beginning an activity, such as dressing, walking, or sit ting down for dinner. ? Don t drink alcohol while taking pain medication. ? Don t drive or operate machinery while taking pain medications as they can slow your re flexes. If your health care provider tells you to take acetaminophen or ibuprofen to help relieve y our pain, ask him or her how much you are supposed to take each day. Constipation ? Constipation is a common side effect of pain medications and anesthetics. Contact your do ctor before taking any medications like laxatives or stool softeners to help relieve constip ation, unless they have been prescribed for you. ? Drinking lots of non-alcoholic fluids and eating foods like fruits and vegetables that ar e high in fiber can also help. Managing Nausea Some people have an upset stomach after surgery. This is often due to anesthesia, pain, tatiana n medications, or the stress of surgery. If you were on a special diet before surgery, ask your doctor if you should follow it during recovery. These tips may help: ? Don t push yourself to eat. Your body will tell you when to eat and how much. ? Start off with clear liquids and soup. They are easier to digest. Slowly move to solid f oods. Don t eat fatty, rich, or spicy foods at first. ? Don t force yourself to have three large meals a day. Instead, eat smaller amounts more often. Blood Clot Prevention Deep vein thrombosis (DVT) is a clot that forms in your deep veins usually in the leg o r thigh. A pulmonary embolism (PE) occurs when a clot in the bloodstream travels through th e heart and into the lungs. If the clot becomes stuck in a blood vessel in the lungs, blood flow can be blocked which causes life-threatening heart and lung problems. The following are prevention tips: ? Elevate your legs whenever they feel swollen or heavy ? Maintain a healthy weight ? Quit smoking ? Avoid sitting, standing, or lying down for long periods without moving your legs and feet . o When traveling by car, make frequent stops to get out and move around. o On long airplane, train, or bus rides, get up and move around when possible. o If you can t get up, wiggle your toes and tighten your calves to keep your blood moving . If you have any of these symptoms of DVT or PE, call your doctor: ? Swelling, pain, or both, often in one limb ? Redness or warmth, often in one limb ? Sudden, continuous pain deep in your muscle ? Worsening ache when you are active or when you stand still for a long time ? Rapid, pounding, or unusual heartbeat ? Sweating more than usual. ? Chest pain, trouble breathing, coughing up blood, skin turning blue, or fainting Call 911. Acetaminophen; Hydrocodone tablets or capsules Brand Names: Anexsia, Lorcet, Lorcet HD, Lorcet Plus, Lortab, Sumner, Verdrocet, Vicodin, Vi codin ES, Vicodin HP, Xodol What is this medicine? ACETAMINOPHEN; HYDROCODONE (a set a EMIL krupa fen; alvarado droe KOE done) is a pain reliever. It is used to treat moderate to severe pain. How should I use this medicine? Take this medicine by mouth with a glass of water. Follow the directions on the prescriptio n label. You can take it with or without food. If it upsets your stomach, take it with food. Do not take your medicine more often than directed. A special MedGuide will be given to you by the pharmacist with each prescription and refill . Be sure to read this information carefully each time. Talk to your glass block installer regarding the use of this medicine in children. Special care may be needed. What side effects may I notice from receiving this medicine? Side effects that you should report to your doctor or health critical care physician as soon as p ossible: allergic reactions like skin rash, itching or hives, swelling of the face, lips, or tong ue breathing problems confusion redness, blistering, peeling or loosening of the skin, including inside the mouth signs and symptoms of low blood pressure like dizziness; feeling faint or lightheaded, f alls; unusually weak or tired trouble passing urine or change in the amount of urine yellowing of the eyes or skin Side effects that usually do not require medical attention (report to your doctor or health critical care physician if they continue or are bothersome): constipation dry mouth nausea, vomiting tiredness What may interact with this medicine? This medicine may interact with the following medications: alcohol antiviral medicines for HIV or AIDS atropine antihistamines for allergy, cough and cold certain antibiotics like erythromycin, clarithromycin certain medicines for anxiety or sleep certain medicines for bladder problems like oxybutynin, tolterodine certain medicines for depression like amitriptyline, fluoxetine, sertraline certain medicines for fungal infections like ketoconazole and itraconazole certain medicines for Parkinson's disease like benztropine, trihexyphenidyl certain medicines for seizures like carbamazepine, phenobarbital, phenytoin, primidone certain medicines for stomach problems like dicyclomine, hyoscyamine certain medicines for travel sickness like scopolamine general anesthetics like halothane, isoflurane, methoxyflurane, propofol ipratropium local anesthetics like lidocaine, pramoxine, tetracaine MAOIs like Carbex, Eldepryl, Marplan, Nardil, and Parnate medicines that relax muscles for surgery other medicines with acetaminophen other narcotic medicines for pain or cough phenothiazines like chlorpromazine, mesoridazine, prochlorperazine, thioridazine rifampin What if I miss a dose? If you miss a dose, take it as soon as you can. If it is almost time for your next dose, ta ke only that dose. Do not take double or extra doses. Where should I keep my medicine? Keep out of the reach of children. This medicine can be abused. Keep your medicine in a saf e place to protect it from theft. Do not share this medicine with anyone. Selling or giving away this medicine is dangerous and against the law. Store at room temperature between 15 and 30 degrees C (59 and 86 degrees F). This medicine may cause harm and if it is taken by other adults, children, or pets. R eturn medicine that has not been used to an official disposal site. Contact the [facility] at [phone] or your [facility] government to find a site. If you cannot return the medicine, flush it down the toilet. Do not use the medicine after the expiration date. What should I tell my health care provider before I take this medicine? They need to know if you have any of these conditions: brain tumor Crohn's disease, inflammatory bowel disease, or ulcerative colitis drug abuse or addiction head injury heart or circulation problems if you often drink alcohol kidney disease or problems going to the bathroom liver disease lung disease, asthma, or breathing problems an unusual or allergic reaction to acetaminophen, hydrocodone, other opioid analgesics, other medicines, foods, dyes, or preservatives or trying to get breast-feeding What should I watch for while using this medicine? Tell your doctor or health critical care physician if your pain does not go away, if it gets wors e, or if you have new or a different type of pain. You may develop tolerance to the medicine . Tolerance means that you will need a higher dose of the medicine for pain relief. Toleranc e is normal and is expected if you take the medicine for a long time. Do not suddenly stop taking your medicine because you may develop a severe reaction. Your b papo becomes used to the medicine. This does NOT mean you are addicted. Addiction is a behavi or related to getting and using a drug for a non-medical reason. If you have pain, you have a medical reason to take pain medicine. Your doctor will tell you how much medicine to take. If your doctor wants you to stop the medicine, the dose will be slowly lowered over time to avoid any side effects. There are different types of narcotic medicines (opiates). If you take more than one type a t the same time or if you are taking another medicine that also causes drowsiness, you may h ave more side effects. Give your health care provider a list of all medicines you use. Your doctor will tell you how much medicine to take. Do not take more medicine than directed. Jak l emergency for help if you have problems breathing or unusual sleepiness. Do not take other medicines that contain acetaminophen with this medicine. Always read papi schumacher carefully. If you have questions, ask your doctor or pharmacist. If you take too much acetaminophen get medical help right away. Too much acetaminophen can be very dangerous and cause liver damage. Even if you do not have symptoms, it is important to get help right away. You may get drowsy or dizzy. Do not drive, use machinery, or do anything that needs mental alertness until you know how this medicine affects you. Do not stand or sit up quickly, gold cially if you are an older patient. This reduces the risk of dizzy or fainting spells. Alcoh ol may interfere with the effect of this medicine. Avoid alcoholic drinks. The medicine will cause constipation. Try to have a bowel movement at least every 2 to 3 da ys. If you do not have a bowel movement for 3 days, call your doctor or health care ramoni jr. Your mouth may get dry. Chewing sugarless gum or sucking hard candy, and drinking plenty of water may help. Contact your doctor if the problem does not go away or is severe. NOTE:This sheet is a summary. It may not cover all possible information. If you have questi ons about this medicine, talk to your doctor, pharmacist, or health care provider. Copyright 2019 [employer] Scopolamine skin patches Brand Name: Transderm Scop What is this medicine? SCOPOLAMINE (skoe EDUARDO a meen) is used to prevent nausea and vomiting caused by motion sickn ess, anesthesia and surgery. How should I use this medicine? This medicine is for external use only. Follow the directions on the prescription label. On e patch contains enough medicine to prevent motion sickness for up to 3 days. Apply the patc h at least 4 hours before you need it and only wear one disc at a time. Choose an area behin d the ear, that is clean, dry, hairless and free from any cuts or irritation. Wipe the area with a clean dry tissue. Peel off the plastic backing of the skin patch, trying not to touch the adhesive side with your hands. Do not cut the patches. Firmly apply to the area you hav e chosen, with the metallic side of the patch to the skin and the rivera-colored side showing. Once firmly in place, wash your hands well with soap and water. Remove the disc after 3 days , or sooner if you no longer need it. After removing the patch, wash your hands and the area behind your ear thoroughly with soap and water. The patch will still contain some medicine after use. To avoid accidental contact or ingestion by children or pets, fold the used patch in half with the sticky side together and throw away in the trash out of the reach of child delia and pets. If you need to use a second patch after you remove the first, place it behind the other ear. Talk to your glass block installer regarding the use of this medicine in children. Special care may be needed. What side effects may I notice from receiving this medicine? Side effects that you should report to your doctor or health critical care physician as soon as p ossible: agitation, nervousness, confusion blurred vision and other eye problems dizziness, drowsiness eye pain or redness in the whites of the eye hallucinations pain or difficulty passing urine skin rash, itching vomiting Side effects that usually do not require medical attention (report to your doctor or health critical care physician if they continue or are bothersome): headache nausea What may interact with this medicine? benztropine bethanechol medicines for anxiety or sleeping problems like diazepam or temazepam medicines for hay fever and other allergies medicines for mental depression muscle relaxants What if I miss a dose? Make sure you apply the patch at least 4 hours before you need it. You can apply it the nig ht before traveling. Where should I keep my medicine? Keep out of the reach of children. Store at room temperature between 20 and 25 degrees C (68 and 77 degrees F). Throw away any unused medicine after the expiration date. When you remove a patch, fold it and throw it in the trash as described above. What should I tell my health care provider before I take this medicine? They need to know if you have any of these conditions: glaucoma kidney or liver disease an unusual or allergic reaction (especially skin allergy) to scopolamine, atropine, othe r medicines, foods, dyes, or preservatives or trying to get breast-feeding What should I watch for while using this medicine? Keep the patch dry, if possible, to prevent it from falling off. Limited contact with water , however, as in bathing or swimming, will not affect the system. If the patch falls off, th row it away and put a new one behind the other ear. You may get drowsy or dizzy. Do not drive, use machinery, or do anything that needs mental alertness until you know how this medicine affects you. Do not stand or sit up quickly, gold cially if you are an older patient. This reduces the risk of dizzy or fainting spells. Alcoh ol may interfere with the effect of this medicine. Avoid alcoholic drinks. Your mouth may get dry. Chewing sugarless gum or sucking hard candy, and drinking plenty of water may help. Contact your doctor if the problem does not go away or is severe. This medicine may cause dry eyes and blurred vision. If you wear contact lenses you may fee l some discomfort. Lubricating drops may help. See your eye doctor if the problem does not g o away or is severe. If you are going to have a magnetic resonance imaging (MRI) procedure, tell your MRI techni jose if you have this patch on your body. It must be removed before a MRI. NOTE:This sheet is a summary. It may not cover all possible information. If you have questi ons about this medicine, talk to your doctor, pharmacist, or health care provider. Copyright 2019 Elsevier documented in this encounter Medications at Time [...] + + + +---------+ + + | promethazine | Take 25 mg by mouth | | 0 | | | | (PHENERGAN) 25 mg | every 6 (six) hours | | | | | | tablet | as needed for | | | | | | | Nausea. | | | | | + + + +---------+ + + | | Take 1 tablet by | 30 | 0 | 07/08/20 | | | HYDROcodone-acetamin | mouth every 4 hours | tablet | | 19 | 9 | | ophen (NORCO) 5-325 | as needed for Pain. | | | | | | mg per tablet | | | | | | + + + +---------+ + + | | Take 1 tablet by | | 0 | 05/26/20 | | | oxyCODONE-acetaminop | mouth every 6 hours | | | 19 | 9 | | hen (PERCOCET) 5-325 | as needed. | | | | | | mg per tablet | | | | | | + + + +---------+ + + | sevelamer | Take 1,600-2,400 mg | | 0 | | | | carbonate (RENVELA) | by mouth See Admin | | | | 9 | | 800 mg tablet | Instructions. Take | | | | | | | two tablets by mouth | | | | | | | once daily in the | | | | | | | morning, then two | | | | | | | tablets by mouth | | | | | | | once daily in the | | | | | | | afternoon, then | | | | | | | three tablets by | | | | | | | mouth once daily in | | | | | | | the evening with | | | | | | | meals. | | | | | + + + +---------+ + + documented as of this encounter Progress Notes Merary Springer RN - 07/08/2019 3:25 PM PDTDischarge criteria met. No complications to surgical site noted. Discharge instructions reviewed with the pt and family. Pt no longer v oids due to dialysis, ambulated, has eaten a snack, had a beverage and is happy with pain ma nagement. IV removed intact. Staff escorted pt to car via wheelchair. Discharged home wit h family. documented in this e ncounter Plan of Treatment Not on filedocumented as of this encounter Procedures + +--------+ + + + | Procedure Name | Priori | Date/Time | Associated Diagnosis | Comments | | | ty | | | | + +--------+ + + + | , SERUM, | STAT | 07/08/2019 | | Results for this | | QUAL | | 2:38 PM | | procedure are in the | | | | PDT | | results section. | + +--------+ + + + | DEBRIDEMENT WOUND | | 07/08/2019 | ESRD on dialysis | | | | | 11:32 AM | ([facility]) Wound | | | | | PDT | infection after | | | | | | surgery | | + +--------+ + + + +---+--------+ | | | | | Specia | | | l | | | Needs | | | Left | | | arm | | | limb | | | alert, | | | | | | allerg | | | y to | | | tape: | | | itchin | | | g | +---+--------+ documented in this encounter Results , Serum, Qual (07/08/2019 2:38 PM PDT) + + + + + + | Component | Value | Ref Range | Performed | Pathologist | | | | | At | Signature | + + + + + + | Preg, Serum | NEGATIVEComment: Testing | NEG | [facility] | | | | performed at [facility] | | | | [address];[place], [place] | | | | | | [address] | | | | + + + + + + + + | Specimen | + + | Blood | + + + + + + + | Performing | Address | City/State/Zipcode | Phone Number | | Organization | | | | + + + + + | [facility] | [address] | [place] [address] | [phone] | + + + + + documented in this encounter Visit Diagnoses + + | Diagnosis | + + | ESRD on dialysis (HCC) End stage renal disease | + + | Wound infection after surgery Other postoperative infection | + + documented in this encounter Admitting Diagnoses + + | Diagnosis | + + | ESRD on dialysis (HCC) End stage renal disease | + + | Wound infection after surgery Other postoperative infection | + + documented in this encounter Administered Medications + +--------+ +--------+------+------+ | Medication Order | MAR | Action | Dose | Rate | Site | | | Action | Date | | | | + +--------+ +--------+------+------+ | bacitracin 50,000 units/10 mL | Given | 07/08/20 | 3,000 | | | | 50,000 Units in sodium chloride | | 19 12:50 | mLs | | | | for irrigation 0.9% 3,000 mL | | PM PDT | | | | | Optesia Mixture PRN, Starting | | | | | | | Nina 07/08/19 at 1250, Intra-op | | | | | | + +--------+ +--------+------+------+ +---+---+ | | | +---+---+ + +-------+ +--------+---+---+ | fentaNYL (PF) injection 25-50 | Given | 07/08/20 | 50 mcg | | | | mcg 25-50 mcg, Intravenous, | | 19 1:11 | | | | | EVERY 5 MIN PRN, Pain, Initial | | PM PDT | | | | | postop medication for URGENT PAIN | | | | | | | OR ESCALATING PAIN, Starting Nina | | | | | | | 07/08/19 at 1251, For 4 doses, | | | | | | | First dose must be lowest dose. | | | | | | | Use Pasero Sedation Scale. | | | | | | | [Opioid tolerant = One week or | | | | | | | longer, pzjncp-crf-liuod use of | | | | | | | at least the following DAILY | | | | | | | dose: 60mg oral morphine, 60mg | | | | | | | oral hydrocodone, 30mg oral | | | | | | | oxycodone, 8mg oral | | | | | | | hydromorphone, fentanyl patch | | | | | | | 25mcg/hr, or equivalent dose of | | | | | | | another opioid], Recovery/Phase I | | | | | | + +-------+ +--------+---+---+ +---+---+ | | | +---+---+ + +-------+ +--------+---+---+ | HYDROmorphone (DILAUDID) | Given | 07/08/20 | 0.2 mg | | | | injection 0.2-0.6 mg 0.2-0.6 mg, | | 19 1:54 | | | | | Intravenous, EVERY 5 MIN PRN, | | PM PDT | | | | | Pain, Starting Nina 07/08/19 at | | | | | | | 1251, First dose must be lowest | | | | | | | dose, can increase subsequent | | | | | | | doses by 0.2mg within dosing | | | | | | | range. If patient meets opioid | | | | | | | tolerant definition, can start | | | | | | | with 0.4mg dose. [Maximum total | | | | | | | PACU dose 2 mg] Use Pasero | | | | | | | Sedation Scale. [Opioid tolerant | | | | | | | = One week or longer, | | | | | | | nxrzhv-nce-osevd use of at least | | | | | | | the following DAILY dose: 60mg | | | | | | | oral morphine, 60mg oral | | | | | | | hydrocodone, 30mg oral oxycodone, | | | | | | | 8mg oral hydromorphone, fentanyl | | | | | | | patch 25mcg/hr, or equivalent | | | | | | | dose of another opioid], | | | | | | | Recovery/Phase I | | | | | | + +-------+ +--------+---+---+ +-------+ +--------+---+---+ | Given | 07/08/20 | 0.2 mg | | | | | 19 1:46 | | | | | | PM PDT | | | | +-------+ +--------+---+---+ | Given | 07/08/20 | 0.2 mg | | | | | 19 1:35 | | | | | | PM PDT | | | | +-------+ +--------+---+---+ +---+---+ | | | +---+---+ documented in this encounter
--- OUTSIDE RECORDS SUMMARY | ~2020-04-05 | XMS | Encounter Summary ---
Demographics + + + | Address | [address] | | | [place] [address] | + + + | Home Phone | | + + + | Preferred Language | Unknown | + + + | Marital Status | | + + + | Baptism Affiliation | Unknown | + + + | Race | Unknown | + + + | Ethnic Group | Unknown | + + + Author + + + | Author | [facility] | | | and [place] | + + + | Organization | [facility] | | | and [place] | + + + | Address | Unknown | + + + | Phone | Unavailable | + + + Support + + + + + | Name | Relationship | Address | Phone | + + + + + | Lyubov Smalls | ECON | [place], [place] | | | | | [address] | | + + + + + | Lydia Palm | ECON | [place], [place] | | | | | [address] | | + + + + + | melinda METZ" | ECON | [place], [place] | | | [place] | | [address] | | + + + + + | Jose C Oconnor | ECON | [address] [place] | | | | | [place] | | | | | [address] | | + + + + + Care Team Providers + +------+ + | Care Pottery Decorator Name | Role | Phone | + +------+ + | No, Physician | PCP | Unavailable | + +------+ + Reason for Visit +--------+ + | Reason | Comments | +--------+ + | Other | | +--------+ + Encounter Details +--------+ + + + + | Date | Type | Department | Care Team | Description | +--------+ + + + + | 08/24/ | Telephone | [facility] | Qasim Pederson MD | Other | | 2019 | | VASCULAR SURGERY | [address] | | | | | [address] | [place], [place] | | | | | [place], [place] | [address] | | | | | [address] | | | | | | [phone] | | | +--------+ + + + [...]
--- OUTSIDE RECORDS SUMMARY | ~2020-04-05 | XMS | Encounter Summary ---
Demographics + + + | Address | [address] | | | [place] [address] | + + + | Home Phone | | + + + | Preferred Language | Unknown | + + + | Marital Status | | + + + | Quaker Affiliation | Unknown | + + + | Race | Unknown | + + + | Ethnic Group | Unknown | + + + Author + + + | Author | [facility] | | | and [place] | + + + | Organization | [facility] | | | and [place] | + + + | Address | Unknown | + + + | Phone | Unavailable | + + + Support + + + + + | Name | Relationship | Address | Phone | + + + + + | Lyubov Smalls | ECON | [place], [place] | | | | | [address] | | + + + + + | Lydia Palm | ECON | [place], [place] | | | | | [address] | | + + + + + | melinda METZ" | ECON | [place], [place] | | | [place] | | [address] | | + + + + + | Jose C Oconnor | ECON | [place] | | | | | [place] | | | | | [address] | | + + + + + Care Team Providers + +------+ + | Care Mix House Operator Name | Role | Phone | + +------+ + | Unknown, Physician | PCP | | + +------+ + Reason for Visit + + + | Reason | Comments | + + + | Surgery Appointment | | + + + Encounter Details +--------+ + + + + | Date | Type | Department | Care Team | Description | +--------+ + + + + | 01/03/ | Telephone | [facility] | Samira Dixon, | Surgery Appointment | | 2020 | | VASCULAR SURGERY | RN | | | | | [address] | | | | | | E [place], [place] | | | | | | [address] | | | | | | [phone] | | | +--------+ + + + + Social History + +-------+ +--------+ + | Tobacco Use | Types | Packs/Day | Years | Date | | | | | Used | | + +-------+ +--------+ + | Former Smoker | | 0.25 | 10 | Quit: 2004 | + +-------+ +--------+ + + +---+---+---+ | Smokeless Tobacco: | | | | | Never Used | | | | + +---+---+---+ + + +---------+ + | Alcohol Use | Drinks/Week | oz/Week | Comments | + + +---------+ + | Not Currently | | | Alcoholic | | | [...] + + documented as of this encounter Functional Status + + + [...]
--- OUTSIDE RECORDS SUMMARY | ~2020-04-05 | XMS | Encounter Summary ---
Demographics + + + | Address | [address] | | | [place] [address] | + + + | Home Phone | | + + + | Preferred Language | Unknown | + + + | Marital Status | | + + + | Episcopalian Affiliation | Unknown | + + + | Race | Unknown | + + + | Ethnic Group | Unknown | + + + Author + + + | Author | [facility] | | | and [place] | + + + | Organization | [facility] | | | and [place] | + + + | Address | Unknown | + + + | Phone | Unavailable | + + + Support + + + + + | Name | Relationship | Address | Phone | + + + + + | Lyubov Smalls | ECON | [place], [place] | | | | | [address] | | + + + + + | Lydia Palm | ECON | [place], [place] | | | | | [address] | | + + + + + | melinda METZ" | ECON | [place], [place] | | | [place] | | [address] | | + + + + + | Jose C Oconnor | ECON | [address] [place] | | | | | [place] | | | | | [address] | | + + + + + Care Team Providers + +------+ + | Care Clinical Documentation Consultant Name | Role | Phone | + +------+ + | Eileen Rick | PCP | | + +------+ + Reason for Visit + + + | Reason | Comments | + + + | Appointment | | + + + Encounter Details +--------+ + + + + | Date | Type | Department | Care Team | Description | +--------+ + + + + | 07/06/ | Telephone | [facility] | Nidhi Whitaker, | Appointment | | 2018 | | VASCULAR SURGERY | RN | | | | | [address] | | | | | | [place] | | | | | | [address] | | | | | | [phone] | | | +--------+ + + + + Social History + +-------+ +--------+------+ | Tobacco Use | Types | Packs/Day | Years | Date | | | | | Used | | + +-------+ +--------+------+ | Former Smoker | | 0.25 | | | + +-------+ +--------+------+ + [...]
--- OUTSIDE RECORDS SUMMARY | ~2020-04-05 | XMS | Encounter Summary ---
Demographics + + + | Address | [address] | | | [place] [address] | + + + | Home Phone | | + + + | Preferred Language | Unknown | + + + | Marital Status | | + + + | Alevism Affiliation | Unknown | + + + | Race | Unknown | + + + | Ethnic Group | Unknown | + + + Author + + + | Author | [facility] | | | and [place] | + + + | Organization | [facility] | | | and [place] | + + + | Address | Unknown | + + + | Phone | Unavailable | + + + Support + + + + + | Name | Relationship | Address | Phone | + + + + + | Lyubov Smalls | ECON | [place], [place] | | | | | [address] | | + + + + + | Lydia Palm | ECON | [place], [place] | | | | | [address] | | + + + + + | melinda METZ" | ECON | [place], [place] | | | [place] | | [address] | | + + + + + | Jose C Oconnor | ECON | [address] [place] | | | | | [place] | | | | | [address] | | + + + + + Care Team Providers + +------+ + | Care Clinical Auditor Name | Role | Phone | + [...] + + | 08/24/ | Telephone | [facility] | Qasim Pederson MD | Other | | 2019 | | VASCULAR SURGERY | [address] | | | | | [address] | [place], [place] | | | | | [place], [place] | [address] | | | | | [address] | | | | | | [phone] | | | +--------+ + + + [...]
--- OUTSIDE RECORDS SUMMARY | ~2020-04-05 | XMS | Encounter Summary ---
Demographics + + + | Address | [address] | | | [place] [address] | + + + | Home Phone | | + + + | Preferred Language | Unknown | + + + | Marital Status | | + + + | Sikhism Affiliation | Unknown | + + + | Race | Unknown | + + + | Ethnic Group | Unknown | + + + Author + + + | Author | [facility] | | | and [place] | + + + | Organization | [facility] | | | and [place] | + + + | Address | Unknown | + + + | Phone | Unavailable | + + + Support + + + + + | Name | Relationship | Address | Phone | + + + + + | Lyubov Smalls | ECON | [place], [place] | | | | | [address] | | + + + + + | Lydia Palm | ECON | [place], [place] | | | | | [address] | | + + + + + | melinda METZ" | ECON | [place], [place] | | | [place] | | [address] | | + + + + + | Jose C Oconnor | ECON | [address] [place] | | | | | [place] | | | | | [address] | | + + + + + Care Team Providers + +------+ + | Care Paper And Pulp Mill Worker Name | Role | Phone | + [...] + + | 01/03/ | Telephone | [facility] | Samira Dixon, | Surgery Appointment | | 2020 | | VASCULAR SURGERY | RN | | | | | [address] | | | | | | E [place], [place] | | | | | | [address] | | | | | | [phone] | | | +--------+ + + + [...]
--- OUTSIDE RECORDS SUMMARY | ~2020-04-05 | XMS | Encounter Summary ---
Demographics + + + | Address | [address] | | | [place] [address] | + + + | Home Phone | | + + + | Preferred Language | Unknown | + + + | Marital Status | | + + + | Quaker Affiliation | Unknown | + + + | Race | Unknown | + + + | Ethnic Group | Unknown | + + + Author + + + | Author | [facility] | | | and [place] | + + + | Organization | [facility] | | | and [place] | + + + | Address | Unknown | + + + | Phone | Unavailable | + + + Support + + + + + | Name | Relationship | Address | Phone | + + + + + | Lyubov Smalls | ECON | [place], [place] | | | | | [address] | | + + + + + | Lydia Palm | ECON | [place], [place] | | | | | [address] | | + + + + + | melinda METZ" | ECON | [place], [place] | | | [place] | | [address] | | + + + + + | Jose C Oconnor | ECON | [address] | | | | | [place] | | | | | [address] | | + + + + + Care Team Providers + +------+ + | Care Real Estate Legal Secretary Name | Role | Phone | + [...] | | Therapy | Dr. Rosado | Alonzo Correa | Infusion [address] | | | | | [address] | [address] | Patricia Hsieh | | | | | Meropenem | [address] | [address], | | | | | daily thru | [address] | [place] [address] | | | | | February 23, | [place], [place] | Phone: | | | | | Peritonitis | [address] | [phone] | | | | | Procedures | Phone: | Fax: | | | | | [place] | [phone] | [phone] | | | | | MEROPENEM, | Fax: | | | | | | [address] [place] | [phone] | | | | | | IV [...] | +--------+ + + + + | 02/18/ | Hospital | [facility] | Jeovanny Correa, | Peritonitis | | 2019 | Encounter | MED CTR OP INFUSION | Alonzo Jasso MD | associated with | | | | [address] | [address] | peritoneal dialysis, | | | | [place] [address] | [place] [address] | initial encounter | | | | [address] | [phone] | (HCC) (Primary Dx) | | | | [phone] | | | +--------+ + + + [...] + + + | Blood Pressure | 109/65 | 02/18/2019 6:35 PM | | | | | PDT | | + + + + + | Pulse | 67 | 02/18/2019 6:35 PM | | | | | PDT | | + + + + + | Temperature | 36.5 C (97.7 F) | 02/18/2019 6:35 PM | | | | | PDT | | + + + + + | Respiratory Rate | 15 | 02/18/2019 6:35 PM | | | | | PDT | | + + + + + | Oxygen Saturation | 100% | 02/18/2019 6:35 PM | | | | | PDT [...] documented as of this encounter Progress Notes Brandin Gray, RN - 02/18/2019 6:36 PM PDTFormatting of this note might be different fro m the original. Vitals: 02/18/19 1800 02/18/191834 BP: 116/72 109/65 Pulse: 73 67 Resp: 15 15 Temp: 36.3 C (97.3 F) 36.5 C (97.7 F) TempSrc: Oral Oral SpO2: 98% 100% Administrations This Visit meropenem (MERREM) 500 mg in sodium chloride 0.9% 50 mL IVPB Admin Date 02/18/2019 Action New Bag Dose 500 mg Rate 50 mL/hr Route Intravenous Administered By Bradnin Gray RN Monitored throughout treatment; treatment completed without untoward effects from medicatio n noted. Next visit 02/19/19. Verbalizes understanding of plan of care. VS stable. Discharged ambulatory to home in stable condition. Electronically signed by: Brandin Gray RN 02/18/2019 19:16 cCoon, Brandin Cartwright RN - 02/18/2019 6:00 PM PDT Vitals: 02/18/19 1835 BP: 109/65 Pulse: 67 Resp: 15 Temp: 36.5 C (97.7 F) Ramona Oconnor received into room 443 independent ambulation accompanied by Daughter State martinez here for Merrem infusion. Reports no change in condition, plan of care since last MD visit . Alert, oriented x 4, cooperative. Electronically signed by: Brandin Gray RN 02/18/2019 19:16 documented in this en counter Plan of Treatment Not on filedocumented as of this encounter Visit Diagnoses + + | Diagnosis | + + | Peritonitis associated with peritoneal dialysis, initial encounter ([facility]) - Primary | + + documented in this encounter Administered Medications + +---------+ +--------+ +------+ | Medication Order | MAR | Action | Dose | Rate | Site | | | Action | Date | | | | + +---------+ +--------+ +------+ | meropenem (MERREM) 500 mg in | New Bag | 02/19/20 | 500 mg | 50 mL/hr | | | sodium chloride 0.9% 50 mL IVPB | | 19 6:11 | | | | | 500 mg, Intravenous, Administer | | PM PDT | | | | | over 60 Minutes, ONCE, Nina | | | | | | | 02/18/19 at 1830, For 1 dose, | | [...]
--- OUTSIDE RECORDS SUMMARY | ~2020-04-05 | XMS | Encounter Summary ---
Demographics + + + | Address | [address] | | | [place] [address] | + + + | Home Phone | | + + + | Preferred Language | Unknown | + + + | Marital Status | | + + + | Gnosticist Affiliation | Unknown | + + + | Race | Unknown | + + + | Ethnic Group | Unknown | + + + Author + + + | Author | [facility] | | | and [place] | + + + | Organization | [facility] | | | and [place] | + + + | Address | Unknown | + + + | Phone | Unavailable | + + + Support + + + + + | Name | Relationship | Address | Phone | + + + + + | Lyubov Smalls | ECON | [place], [place] | | | | | [address] | | + + + + + | Lydia Palm | ECON | [place], [place] | | | | | [address] | | + + + + + | melinda METZ" | ECON | [place], [place] | | | [place] | | [address] | | + + + + + | Jose C Oconnor | ECON | [address] | | | | | [place] | | | | | [address] | | + + + + + Care Team Providers + +------+ + | Care Photoengraving Proofer Apprentice Name | Role | Phone | + [...] | daily thru | [address] | [place] [address] | | | | | February 23, | [place], [place] | Phone: | | | | | Peritonitis | [address] | [phone] | | | | | Procedures | Phone: | Fax: | | | | | [place] | [phone] | [phone] | | | | | MEROPENEM, | Fax: | | | | | | [address] [place] | [phone] | | | | | | IV [...] + + | 02/17/ | Hospital | [facility] | Jeovanny Correa, | Peritonitis | | 2019 | Encounter | MED CTR OP INFUSION | Alonzo Jasso MD | associated with | | | | [address] | [address] | peritoneal dialysis, | | | | [address] | [place] [address] | initial encounter | | | | [address] | [phone] | (HCC) (Primary Dx) | | | | [phone] | | | +--------+ + + + [...]
--- OUTSIDE RECORDS SUMMARY | ~2020-04-05 | XMS | Encounter Summary ---
Demographics + + + | Address | [address] | | | [place] [address] | + + + | Home Phone | | + + + | Preferred Language | Unknown | + + + | Marital Status | | + + + | Moravian Affiliation | Unknown | + + + [...] [place], [place] | | | | | [address] | | + + + + + | Lydia Palm | ECON | [place], [place] | | | | | [address] | | + + + + + | melinda METZ" | ECON | [place], [place] | | | [place] | | [address] | | + + + + + | Jose C Oconnor | ECON | [address] | | | | | [place] | | | | | [address] | | + + + + + Care Team Providers + +------+ + | Care Load Dropper Name | Role | Phone | + [...] | +--------+ + + + + | 08/20/ | Telephone | [facility] | [facility] | Other | | 2017 | | [facility] PRE | MD Kiran [address] | | | | | KIDNEY TRANSPLANT | [place] [address] | | | | | [address] [place] | [place] [address] | | | | | [address] | [phone] | | | | | [address] | | | | | | [phone] | | | +--------+ + + + [...]
--- OUTSIDE RECORDS SUMMARY | ~2020-04-05 | XMS | Encounter Summary ---
Demographics + + + | Address | [address] | | | [place] [address] | + + + | Home Phone | | + + + | Preferred Language | Unknown | + + + | Marital Status | | + + + | Yarsani Affiliation | Unknown | + + + | Race | Unknown | + + + | Ethnic Group | Unknown | + + + Author + + + | Author | [facility] | | | and [place] | + + + | Organization | [facility] | | | and [place] | + + + | Address | Unknown | + + + | Phone | Unavailable | + + + Support + + + + + | Name | Relationship | Address | Phone | + + + + + | Lyubov Smalls | ECON | [place], [place] | | | | | [address] | | + + + + + | Lydia Palm | ECON | [place], [place] | | | | | [address] | | + + + + + | melinda METZ" | ECON | [place], [place] | | | reba | | [address] | | + + + + + | Jose C Oconnor | ECON | [place] | | | | | [place] | | | | | [address] | | + + + + + Care Team Providers + +------+ + | Care Trial Consultant Name | Role | Phone | + +------+ + | Juan F Whitley DO | PCP | | + +------+ + Encounter Details +--------+ + + + + | Date | Type | Department | Care Team | Description | +--------+ + + + + | 06/05/ | Emergency | [facility] | Georgette Beavers, | Right flank pain; | | 2018 | | [facility] | DO [address] | ESRD on peritoneal | | | | EMERGENCY CENTER | [place] [address] | dialysis (HCC); | | | | [address] | [phone] | Non-compliance with | | | | [place], [place] | | treatment; Ovarian | | | | [address] | | mass, right | | | | [phone] | | | +--------+ + + + [...] + + + | Blood Pressure | 90/51 | 06/05/2018 8:17 AM | | | | | PDT | | + + + + + | Pulse | 74 | 06/05/2018 8:17 AM | | | | | PDT | | + + + + + | Temperature | 36.6 C (97.9 F) | 06/05/2018 8:17 AM | | | | | PDT | | + + + + + | Respiratory Rate | 16 | 06/05/2018 8:17 AM | | | | | PDT | | + + + + + | Oxygen Saturation | - | - | | + + + + + | Inhaled Oxygen | - | - | | | Concentration | | | | + + + + + | Weight | 79.2 kg (174 lb 9.6 | 06/05/2018 8:17 AM | | | | oz) | PDT | | + + + + + | Height | - | - | | + + + + + | Body Mass Index | 31.93 | 04/03/2018 8:32 AM | | | | | PDT [...] Progress Notes Conversion Transaction, Provider Unknown - 06/05/2018 7:55 AM PDTFormatting of this note m ight be different from the original. Nurse Progress Note by Silviano Lake RN at 06/05/18 [id number] Author: Silviano Lake RN Service: Nephrology Author Type: Registered Nurse Filed: 06/05/18 4745 Date of Service: 06/05/18 0755 Status: Signed Steel Heater: Silviano Lake, RN (Registered Nurse) COLLECTED APPROXIMATELY 5 ML OF PERITONEAL FLUID, UNABLE TO COLLECT ANY MORE, PT WAS GRIMAC ING AND MOANING DURING SYRINGE WITHDRAWAL. DR ELIZABETH AND BARI MONCADA NOTIFIED docume nted in this encounter Plan of Treatment Not on filedocumented as of this encounter Procedures + +--------+ + + + | Procedure Name | Priori | Date/Time | Associated Diagnosis | Comments | | | ty | | | | + +--------+ + + + | CELL COUNT, BODY | Routin | 06/05/2018 | | Results for this | | FLUID | e | 7:30 AM | | procedure are in the | | | | PDT | | results section. | + +--------+ + + + | CELL COUNT, BODY | STAT | 06/05/2018 | | Results for this | | FLUID | | 7:30 AM | | procedure are in the | | | | PDT | | results section. | + +--------+ + + + | CULTURE, BODY FLUID, | STAT | 06/05/2018 | | Results for this | | STERILE, SMEAR, | | 7:30 AM | | procedure are in the | | WITH ANAEROBES | | PDT | | results section. | + +--------+ + + + | LACTIC ACID | Routin | 06/05/2018 | | Results for this | | | e | 7:25 AM | | procedure are in the | | | | PDT | | results section. | + +--------+ + + + | CULTURE, BLOOD, 2ND | STAT | 06/05/2018 | | Results for this | | SPECIMEN (NON-ORD) | | 5:58 AM | | procedure are in the | | | | PDT | | results section. | + +--------+ + + + | CULTURE, BLOOD | STAT | 06/05/2018 | | Results for this | | | | 5:57 AM | | procedure are in the | | | | PDT | | results section. | + +--------+ + + + | US NON-OB | Routin | 06/05/2018 | | Results for this | | TRANSVAGINAL | e | 3:57 AM | | procedure are in the | | | | PDT | | results section. | + +--------+ + + + | LACTIC ACID | Routin | 06/05/2018 | | Results for this | | | e | 2:34 AM | | procedure are in the | | | | PDT | | results section. | + +--------+ + + + | ECG 12 LEAD | Routin | 06/05/2018 | | Results for this | | | e | 1:17 AM | | procedure are in the | | | | PDT | | results section. | + +--------+ + + + | CT ABDOMEN PELVIS WO | Routin | 06/05/2018 | | Results for this | | CONTRAST | e | 1:11 AM | | procedure are in the | | | | PDT | | results section. | + +--------+ + + + | XR CHEST 2 VIEWS | Routin | 06/05/2018 | | Results for this | | | e | 1:07 AM | | procedure are in the | | | | PDT | | results section. | + +--------+ + + + | HISTORICAL LAB PANEL | Routin | 06/05/2018 | | Results for this | | RESULT | e | 12:57 AM | | procedure are in the | | | | PDT | | results section. | + +--------+ + + + | PROCALCITONIN, SERUM | Routin | 06/05/2018 | | Results for this | | | e | 12:57 AM | | procedure are in the | | | | PDT | | results section. | + +--------+ + + + | TROPONIN I | Routin | 06/05/2018 | | Results for this | | | e | 12:57 AM | | procedure are in the | | | | PDT | | results section. | + +--------+ + + + | C-REACTIVE PROTEIN | Routin | 06/05/2018 | | Results for this | | | e | 12:57 AM | | procedure are in the | | | | PDT | | results section. | + +--------+ + + + documented in this encounter Results Culture, Body Fluid, Sterile, Smear, with Anaerobes (06/05/2018 7:30 AM PDT) + + | Specimen | + + | | + + + + + | Narrative | Performed At | + + + | Specimen Description ASCITES FLUID GRAM STAIN | EXTERNAL LAB | | WBC'S SEEN | | | NO ORGANISMS SEEN | | | STAIN PERFORMED ON CYTOSPIN CULTURE | | | NO GROWTH 4 DAYS | | + + + + +---------+ + + | Performing | Address | City/State/Zipcode | Phone Number | | Organization | | | | + +---------+ + + | EXTERNAL LAB | | | | + +---------+ + + Cell Count, Body Fluid (06/05/2018 7:30 AM PDT) + + | Specimen | + + | | + + + + + | Narrative | Performed At | + + + | FLUID TYPE ASCITES FLUID COLOR | EXTERNAL LAB | | YELLOW APPEARANCE | | | CLOUDY RBC'S | | | <27292 TOTAL NUCLEATED CELLS | | | 1484 NEUTROPHILS | | | 42 LYMPHOCYTES | | | 1 MONOCYTES/MACROPHAGES 56 | | | EOSINOPHILS 0 | | | Mesothelial Cells 1 OTHER | | | CELLS 0 CELLS COUNTED | | | 100 Testing performed at | | | [facility];[address] [place] [address];[place] [address] | | + + + + +---------+ + + | Performing | Address | City/State/Zipcode | Phone Number | | Organization | | | | + +---------+ + + | EXTERNAL LAB | | | | + +---------+ + + Cell Count, Body Fluid (06/05/2018 7:30 AM PDT) + + | Specimen | + + | Body fluid sample | | (specimen) | + + + + + | Narrative | Performed At | + + + | FLUID TYPE REPORTED IN ERROR, | EXTERNAL LAB | | PLEASE DISREGARD RESULTS. CORRECTED ON 06/05 AT 1042: PREVIOUSLY | | | REPORTED ASCITES FLUID COLOR | | | REPORTED IN ERROR, PLEASE DISREGARD RESULTS. CORRECTED ON | | | 06/05 AT 1042: PREVIOUSLY REPORTED YELLOW APPEARANCE | | | REPORTED IN ERROR, PLEASE DISREGARD RESULTS. | | | CORRECTED ON 06/05 AT 1042: PREVIOUSLY REPORTED CLOUDY RBC'S | | | REPORTED IN ERROR, PLEASE | | | DISREGARD RESULTS. CORRECTED ON 06/05 AT 1042: PREVIOUSLY REPORTED | | | <96068 TOTAL NUCLEATED CELLS REPORTED IN ERROR, | | | PLEASE DISREGARD RESULTS. CORRECTED ON 06/05 AT 1042: PREVIOUSLY | | | REPORTED 1484 NEUTROPHILS | | | REPORTED IN ERROR, PLEASE DISREGARD RESULTS. CORRECTED ON 06/05 AT | | | 1042: PREVIOUSLY REPORTED 3 LYMPHOCYTES | | | REPORTED IN ERROR, PLEASE DISREGARD RESULTS. CORRECTED ON | | | 06/05 AT 1042: PREVIOUSLY REPORTED 81 MONOCYTES/MACROPHAGES | | | REPORTED IN ERROR, PLEASE DISREGARD RESULTS. CORRECTED | | | ON 06/05 AT 1042: PREVIOUSLY REPORTED 4 EOSINOPHILS | | | REPORTED IN ERROR, PLEASE DISREGARD RESULTS. | | | CORRECTED ON 06/05 AT 1042: PREVIOUSLY REPORTED 1 Mesothelial | | | Cells REPORTED IN ERROR, PLEASE DISREGARD | | | RESULTS. CORRECTED ON 06/05 AT 1042: PREVIOUSLY REPORTED 11 OTHER | | | CELLS REPORTED IN ERROR, PLEASE | | | DISREGARD RESULTS. CORRECTED ON 06/05 AT 1042: PREVIOUSLY REPORTED | | | 0 CELLS COUNTED REPORTED IN ERROR, | | | PLEASE DISREGARD RESULTS. Testing performed at [facility];[address] | | | [facility];[place] [address] CORRECTED ON 06/05 AT 1042: PREVIOUSLY | | | REPORTED 100 | | + + + + +---------+ + + | Performing | Address | City/State/Zipcode | Phone Number | | Organization | | | | + +---------+ + + | EXTERNAL LAB | | | | + +---------+ + + Lactic Acid (06/05/2018 7:25 AM PDT) + + + + + + | Component | Value | Ref Range | Performed | Pathologist | | | | | At | Signature | + + + + + + | Lactate | 1.6Comment: Testing | 0.4 - 2.0 | EXTERNAL | | | | performed at [facility];[address] | mmol/L | LAB | | | | [address];[place] | | | | | | [address] | | | | + + + + + + + + | Specimen | + + | Blood specimen | | (specimen) | + + + +---------+ + + | Performing | Address | City/State/Zipcode | Phone Number | | Organization | | | | + +---------+ + + | EXTERNAL LAB | | | | + +---------+ + + Culture, Blood, 2nd Specimen (06/05/2018 5:58 AM PDT) + + | Specimen | + + | Blood specimen | | (specimen) | + + + + + | Narrative | Performed At | + + + | Specimen Description BLOOD CULTURE | EXTERNAL LAB | | NO GROWTH 6 DAYS | | + + + + +---------+ + + | Performing | Address | City/State/Zipcode | Phone Number | | Organization | | | | + +---------+ + + | EXTERNAL LAB | | | | + +---------+ + + Culture, Blood (06/05/2018 5:57 AM PDT) + + | Specimen | + + | Blood specimen | | (specimen) | + + + + + | Narrative | Performed At | + + + | Specimen Description BLOOD CULTURE | EXTERNAL LAB | | NO GROWTH 6 DAYS | | + + + + +---------+ + + | Performing | Address | City/State/Zipcode | Phone Number | | Organization | | | | + +---------+ + + | EXTERNAL LAB | | | | + +---------+ + + US Non-Ob Transvaginal (06/05/2018 3:57 AM PDT) + + | Specimen | + + | | + + + + + | Impressions | Performed At | + + + | 1. Enlarged right ovary measuring 42 cc with complex cystic | | | lesion measuring 3.6 x 2.8 x 3.4 cm. Some internal vascularity is | | | again seen within this lesion. Neoplasm not excluded. 2. Left ovary | | | appears normal. 3. No torsion seen. [facility] Electronically | | | signed by Lukas Dean MD on Jun 05 2018 4:27AM Referring Provider | | | Line: [phone] ID: [id number] | | + + + + + + | Narrative | Performed At | + + + | EXAM: PELVIC ULTRASOUND EXAM DATE: 06/05/2018 03:58 AM. | | | CLINICAL HISTORY: Pelvic pain. COMPARISON: CT, 06/05/2018. | | | Ultrasound, 04/09/2018. TECHNIQUE: Realtime transvaginal pelvic | | | scan performed with static image documentation. FINDINGS: Uterus: | | | 6.9 x 3.4 x 3.9 cm, volume 48 cc. Anteverted position. Normal overall | | | size and echotexture. Masses: None. Endometrium: 6.2 mm. Normal. | | | Cervix: Unremarkable. Right Ovary: 5.1 x 4.4 x 3.6 cm, volume 42 | | | cc. Complex cystic area measuring 3.6 x 2.8 x 3.4 cm. Blood flow seen | | | in the ovary. Again seen is some vascularity within the complex area. | | | Left Ovary: 2.1 cm. Normal echotexture and blood flow. Free | | | Fluid: None. Other: None. | | + + + + + | Procedure Note | + + | Endy, Rad Conversion - 06/23/2019 11:55 AM PDT EXAM:PELVIC ULTRASOUND EXAM DATE: | | 06/05/2018 03:58 AM. CLINICAL HISTORY: Pelvic pain. COMPARISON: CT, 06/05/2018. | | Ultrasound, 04/09/2018. TECHNIQUE: Realtime transvaginal pelvic scan performed with | | static image documentation. FINDINGS:Uterus: 6.9 x 3.4 x 3.9 cm, volume 48 cc. | | Anteverted position. Normal overall size and echotexture.Masses: None.Endometrium: 6.2 | | mm. Normal.Cervix: Unremarkable. Right Ovary: 5.1 x 4.4 x 3.6 cm, volume 42 cc. Complex | | cystic area measuring 3.6 x 2.8 x 3.4 cm. Blood flow seen in the ovary. Again seen is | | some vascularity within the complex area.Left Ovary: 2.1 cm. Normal echotexture and | | blood flow. Free Fluid: None. Other: None. IMPRESSION: 1. Enlarged right ovary | | measuring 42 cc with complex cystic lesion measuring 3.6 x 2.8 x 3.4 cm. Some internal | | vascularity is again seen within this lesion. Neoplasm not excluded.2. Left ovary | | appears normal.3. No torsion seen. [facility] Electronically signed by Lukas Dean MD on | | Jun 05 2018 4:27AM Referring Provider Line: [phone] ID: [id number] | |Masses: None. | |Endometrium: 6.2 mm. Normal. | |Cervix: Unremarkable. | | | |Right Ovary: 5.1 x 4.4 x 3.6 cm, volume 42 cc. Complex cystic area measuring 3.6 x 2.8 x 3. 4 cm. Blood flow seen in the ovary. Again seen is some vascularity within the complex area. | |Left Ovary: 2.1 cm. Normal echotexture and blood flow. | | | |Free Fluid: None. | | | |Other: None. | | | |IMPRESSION: | | | |1. Enlarged right ovary measuring 42 cc with complex cystic lesion measuring 3.6 x 2.8 x 3. 4 cm. Some internal vascularity is again seen within this lesion. Neoplasm not excluded. | |2. Left ovary appears normal. | |3. No torsion seen. | | | |[facility] | | | | Electronically signed by Lukas Dean MD on Jun 05 2018 4:27AM Referring Provider Line: [phone] ID: [id number] | + + Lactic Acid (06/05/2018 2:34 AM PDT) + + + + + + | Component | Value | Ref Range | Performed | Pathologist | | | | | At | Signature | + + + + + + | Lactate | 1.3Comment: Testing | 0.4 - 2.0 | EXTERNAL | | | | performed at [facility];[address] | mmol/L | LAB | | | | [address];[place], [place] | | | | | | [address] | | | | + + + + + + + + | Specimen | + + | | + + + +---------+ + + | Performing | Address | City/State/Zipcode | Phone Number | | Organization | | | | + +---------+ + + | EXTERNAL LAB | | | | + +---------+ + + ECG 12 lead (06/05/2018 1:17 AM PDT) + + + + + + | Component | Value | Ref Range | Performed | Pathologist | | | | | At | Signature | + + + + + + | DIAGNOSIS: | Normal sinus rhythmST & | | EXTERNAL | | | | T wave abnormality, | | LAB | | | | consider anterolateral | | | | | | ischemiaAbnormal ECGWhen | | | | | | compared with ECG of | | | | | | 17-MAR-2018 00:21,QRS | | | | | | axis Shifted rightT wave | | | | | | inversion no longer | | | | | | evident in Inferior | | | | | | leadsThis ECG contains | | | | | | Unconfirmed | | | | | | Interpretation | | | | | | Statements. See ED | | | | | | Record for Physician | | | | | | Interpretation. | | | | | | Confirmed by MUSE READ | | | | | | ONLY, -COMPUTER ([id number]), | | | | | | magazine editor Yesenia King | | | | | | 79) on 06/05/2018 | | | | | | 4:58:37 PM | | | | + + + + + + + + | Specimen | + + | | + + + + + | Narrative | Performed At | + + + | Historically converted procedure from [facility] | EXTERNAL LAB | + + + + +---------+ + + | Performing | Address | City/State/Zipcode | Phone Number | | Organization | | | | + +---------+ + + | EXTERNAL LAB | | | | + +---------+ + + CT Abdomen Pelvis wo Contrast (06/05/2018 1:11 AM PDT) + + | Specimen | + + | | + + + + + | Impressions | Performed At | + + + | 1. No dilated or thick-walled bowel is seen. Appendix is normal. | | | 2. There is trace free fluid within the pelvis. Peritoneal dialysis | | | catheter is in place. 3. There is mild heterogeneity and enlargement | | | of the right ovary. This could reflect underlying complex cyst or | | | mass. 4. The kidneys are atrophic. Electronically signed by | | | Katlyn Esteves MD on Jun 05 2018 1:44AM Referring Provider Line: | | | [phone] ID: [id number] | | + + + + + + | Narrative | Performed At | + + + | EXAM: CT ABDOMEN AND PELVIS (CT KUB) EXAM DATE: 06/05/2018 01:12 | | | AM. CLINICAL HISTORY: Abdominal pain. COMPARISONS: CT ABDOMEN | | | PELVIS W CONTRAST 03/16/2018 US PELVIS WITH ENDOVAGINAL 04/09/2018 | | | 11:23 AM. TECHNIQUE: Routine axial helical CT imaging was | | | performed through the abdomen and pelvis without IV contrast. | | | Reconstructions: Coronal and sagittal. In accordance with CT | | | protocol optimization, one or more of the following dose reduction | | | techniques were utilized for this exam: automated exposure control, | | | adjustment of mA and/or KV based on patient size, or use of iterative | | | reconstructive technique. FINDINGS: Lung Bases: Unremarkable. | | | Abdominal Organs: The liver, spleen, and pancreas demonstrate no | | | acute noncontrast abnormalities. There is a small left adrenal nodule | | | which likely represents an adenoma. The kidneys are atrophic. | | | Gallbladder/bile ducts: No significant abnormalities. Peritoneal | | | Cavity: No dilated or thick-walled bowel is seen. A tibial dialysis | | | catheter is in place. There is a small amount of free fluid within the | | | pelvis. Pelvic Organs: The urinary bladder is decompressed. There | | | is a relatively stable right adnexal heterogeneous density which may | | | represent complex right ovarian cyst. Vasculature: No vascular | | | aneurysms. Other: None. | | + + + + + | Procedure Note | + + | Migue Schumacher Conversion - 06/23/2019 11:55 AM PDT EXAM:CT ABDOMEN AND PELVIS (CT KUB) | | EXAM DATE: 06/05/2018 01:12 AM. CLINICAL HISTORY: Abdominal pain. COMPARISONS: CT ABDOMEN | | PELVIS W CONTRAST 03/16/2018US PELVIS WITH ENDOVAGINAL 04/09/2018 11:23 AM. TECHNIQUE: | | Routine axial helical CT imaging was performed through the abdomen and pelvis without IV | | contrast. Reconstructions: Coronal and sagittal. In accordance with CT protocol | | optimization, one or more of the following dose reduction techniques were utilized for | | this exam: automated exposure control, adjustment of mA and/or KV based on patient size, | | or use of iterative reconstructive technique. FINDINGS:Lung Bases: Unremarkable. | | Abdominal Organs: The liver, spleen, and pancreas demonstrate no acute noncontrast | | abnormalities. There is a small left adrenal nodule which likely represents an adenoma. | | The kidneys are atrophic. Gallbladder/bile ducts: No significant abnormalities. | | Peritoneal Cavity: No dilated or thick-walled bowel is seen. A tibial dialysis catheter | | is in place. There is a small amount of free fluid within the pelvis. Pelvic Organs: The | | urinary bladder is decompressed. There is a relatively stable right adnexal | | heterogeneous density which may represent complex right ovarian cyst. Vasculature: No | | vascular aneurysms. Other: None. IMPRESSION: 1. No dilated or thick-walled bowel is | | seen. Appendix is normal.2. There is trace free fluid within the pelvis. Peritoneal | | dialysis catheter is in place.3. There is mild heterogeneity and enlargement of the | | right ovary. This could reflect underlying complex cyst or mass.4. The kidneys are | | atrophic. Electronically signed by Katlyn Esteves MD on Jun 05 2018 1:44AM | | Referring Provider Line: [phone] ID: [id number] | |Peritoneal Cavity: No dilated or thick-walled bowel is seen. A tibial dialysis catheter is in place. There is a small amount of free fluid within the pelvis. | | | |Pelvic Organs: The urinary bladder is decompressed. There is a relatively stable right adne xal heterogeneous density which may represent complex right ovarian cyst. | | | |Vasculature: No vascular aneurysms. | | | |Other: None. | | | |IMPRESSION: | | | |1. No dilated or thick-walled bowel is seen. Appendix is normal. | |2. There is trace free fluid within the pelvis. Peritoneal dialysis catheter is in place. | |3. There is mild heterogeneity and enlargement of the right ovary. This could reflect under lying complex cyst or mass. | |4. The kidneys are atrophic. | | | | Electronically signed by Katlyn Esteves MD on Jun 05 2018 1:44AM Referring Provider Sandhya ne: [phone] ID: [id number] | + + XR Chest 2 Vws (06/05/2018 1:07 AM PDT) + + | Specimen | + + | | + + + + + | Impressions | Performed At | + + + | 1. No acute cardiopulmonary process noted. Electronically | | | signed by Pratik Harden MD on 06/05/2018 7:12 AM | | + + + + + + | Narrative | Performed At | + + + | RAMONA OCONNOR 1980 38 years XR CHEST 2 VIEW FRONTAL AND | | | LATERAL 06/05/2018 1:07 AM INDICATION: Chest pain. COMPARISON | | | study: 06/04/2017. TECHNIQUE: 2 views FINDINGS: Lungs appear | | | clear. Cardiomediastinal silhouette appears unremarkable. Osseous | | | structures appear unremarkable. No pleural effusion seen. | | + + + + + | Procedure Note | + + | Migue Schumacher Conversion - 06/23/2019 11:55 AM SRINATH [id number] yearsXR | | CHEST 2 VIEW FRONTAL AND LATERAL06/05/2018 1:07 AM INDICATION: Chest pain. COMPARISON | | study: 06/04/2017. TECHNIQUE: 2 views FINDINGS: Lungs appear clear. Cardiomediastinal | | silhouette appears unremarkable. Osseous structures appear unremarkable. No pleural | | effusion seen. IMPRESSION: 1. No acute cardiopulmonary process noted. Electronically | | signed by Pratik Harden MD on 06/05/2018 7:12 AM | |INDICATION: Chest pain. | | | |COMPARISON study: 06/04/2017. | | | |TECHNIQUE: 2 views | | | |FINDINGS: Lungs appear clear. Cardiomediastinal silhouette appears unremarkable. Osseous s tructures appear unremarkable. No pleural effusion seen. | | | |IMPRESSION: | |1. No acute cardiopulmonary process noted. | | | | | + + Procalcitonin (06/05/2018 12:57 AM PDT) + + + + + + | Component | Value | Ref Range | Performed | Pathologist | | | | | At | Signature | + + + + + + | PROCALCITON | 0.57 (H)Comment: | ng/mL | EXTERNAL | | | IN | INTERPRETIVE | | LAB | | | | INFORMATION: | | [...] | | | | | | at [facility];[address] [place] [address] | | | | | | [facility];[place] [address] | | | | + + + + + + + + | Specimen | + + | | + + + +---------+ + + | Performing | Address | City/State/Zipcode | Phone Number | | Organization | | | | + +---------+ + + | EXTERNAL LAB | | | | + +---------+ + + HISTORICAL LAB PANEL RESULT (06/05/2018 12:57 AM PDT) + + + + + + | Component | Value | Ref Range | Performed | Pathologist | | | | | At | Signature | + + + + + + | WBC | 16.42 (H) | 3.80 - 11.00 | EXTERNAL | | | | | K/uL | LAB | | + + + + + + | Red Blood | 4.44 | 3.70 - 5.10 | EXTERNAL | | | Cells | | M/uL | LAB | | | Counted | | | | | + + + + + + | Hemoglobin | 12.8 | 11.3 - 15.5 | EXTERNAL | | | | | g/dL | LAB | | + + + + + + | Hematocrit, | 39.0 | 34.0 - 46.0 % | EXTERNAL | | | POC | | | LAB | | + + + + + + | MCV | 87.9 | 80.0 - 100.0 fl | EXTERNAL [...] + + + + | RDW-CV | 43.3 | 37 - 53 fl | EXTERNAL | | | | | | LAB | | + + + + + + | Platelet | 400 | 150 - 400 K/uL | EXTERNAL | | | Count | | | LAB | | | Plasma | | | | | + + + + + + | MPV | 8.6 | fl | EXTERNAL | | | | | | LAB | | + + + + + + | Differentia | AUTOMATED | | EXTERNAL | | | l Type | | | LAB | | + + + + + + | % Segmented | 83.54 | % | EXTERNAL | | | | | | LAB | | | Neutrophils | | | | | + + + + + + | % | 11.48 | % | EXTERNAL | | | Lymphocytes | | | LAB | | + + + + + + | % Monocytes | 4.16 | % | EXTERNAL | | | | | | LAB | | + + + + + + | % | 0.31 | % | EXTERNAL | | | Eosinophils | | | LAB | | + + + + + + | % Basophils | 0.51 | % | EXTERNAL | | | | | | LAB | | + + + + + + | Absolute | 13.72 (H) | 1.90 - 7.40 | EXTERNAL | | | Segmented | | K/uL | LAB | | | Neutrophils | | | | | + + + + + + | Absolute | 1.89 | 1.00 - 3.90 | EXTERNAL | | | Lymphocytes | | K/uL | LAB | | + + + + + + | Absolute | 0.68 | 0.00 - 0.80 | EXTERNAL | | | Monocytes | | K/uL | LAB | | + + + + + + | Absolute | 0.05 | 0.00 - 0.50 | EXTERNAL | | | Eosinophils | | K/uL | LAB | | + + + + + + | Absolute | 0.08 | 0.00 - 0.10 | EXTERNAL | | | Basophils | | K/uL | LAB | | + + + + + + | Na | 138 | 135 - 145 | EXTERNAL | | | | | mmol/L | LAB | | + + + + + + | K | 4.4Comment: SLT | 3.5 - 4.9 | EXTERNAL | | | | HEMOLYSIS | mmol/L | LAB | | + [...] 19 | 5 - 20 mmol/L | EXTERNAL | | | | | | LAB | | + + + + + + | Glucose, | 98 | 65 - 99 mg/dL | EXTERNAL | | | Fasting | | | LAB | | + + + + + + | BUN | 33 (H) | 8 - 25 mg/dL | EXTERNAL | | | | | | LAB | | + + + + + + | Creatinine | 15 (H) | 0.50 - 1.00 | EXTERNAL | | | | | mg/dL | LAB | | + + + + + + | BUN/Creatin | 2 | | EXTERNAL | | | ine Ratio | | | LAB | | + + + + + + | Calcium | 9.4 | 8.5 - 10.5 | EXTERNAL | | | | | mg/dL | LAB | | + + + + + + | Protein, | 7.9 | 6.3 - 8.2 g/dL | EXTERNAL | | | Total | | | LAB | | + + + + + + | Albumin | 2.7 (L) | 3.6 - 5.0 g/dL | EXTERNAL | | | | | | LAB | | + + + + + + | Globulin | 5.2 (H) | 1.3 - 4.9 g/dL | EXTERNAL | | | | | | LAB | | + + + + + + | A/G Ratio | 0.5 (L) | 1.0 - 2.4 | EXTERNAL | | | | | | LAB | | + + + + + + | Bilirubin | 0.5 | 0.1 - 1.5 mg/dL | EXTERNAL | | | Total | | | LAB | | + + + + + + | ALP, | 92 | 35 - 115 U/L | EXTERNAL | | | External | | | LAB | | + + + + + + | AST | 32Comment: [facility] | 10 - 45 U/L | EXTERNAL | | | | | | LAB | | + + + + + + | ALT | 21 | 10 - 65 U/L | EXTERNAL [...] traceable | | | | | | equation. | | | | + + + + + + | CK, Total | 126Comment: [facility] | 30 - 240 U/L | EXTERNAL | | | | HEMOLYSIS | | LAB | | + + + + + + | INR | 0.9Comment: REFERENCE | | EXTERNAL | | | | RANGE:0.9 - 1.2 | | LAB | | | | NON-ANTICOAGULATED2.0 | | | | | | - 3.0 ALL OTHER | | | | | | THERAPEUTIC | | | | | | INDICATIONS2.5 - 3.5 | | | | | | MECHANICAL HEART VALVES, | | | | | | RECURRENT OR SYSTEMIC | | | | | | EMBOLISM | | | | + + + + + + | aPTT, | 27 | 23 - 32 seconds | EXTERNAL | | | Patient | | | LAB | | + + + + + + | CK-MB | <1.0 | 0.5 - 3.6 ng/mL | EXTERNAL | | | | | | LAB | | + + + + + + | CK-MB Index | UNABLE TO | | EXTERNAL | | | | CALCULATEComment: | | LAB | | | | Testing performed at | | | | | | [facility];[address] [place] [address] | | | | | | [facility];[place] [address] | | | | + + + + + + + + | Specimen | + + | | + + + +---------+ + + | Performing | Address | City/State/Zipcode | Phone Number | | Organization | | | | + +---------+ + + | EXTERNAL LAB | | | | + +---------+ + + Troponin I (06/05/2018 12:57 AM PDT) + + + + + + | Component | Value | Ref Range | Performed | Pathologist | | | | | At | Signature | + + + + + + | Troponin I, | <0.020Comment: 0.00 to | 0.00 - 0.10 | EXTERNAL | | | Qual | 0.10 CONSISTENT WITH | ng/mL | LAB | | | | NORMAL POPULATION0.11 | | | | | | to 0.60 CONSISTENT | | | | | | WITH INCREASED RISK FOR | | | | | | ADVERSE OUTCOMES> 0.60 | | | | | | CONSISTENT | | | | | | WITH WHO CRITERIA FOR | | | | | | ACUTE PA Testing | | | | | | performed at [facility] | | | | | | [facility];[place], [place] | | | | | | [phone] | | | | + + + + + + + + | Specimen | + + | Blood specimen | | (specimen) | + + + +---------+ + + | Performing | Address | City/State/Zipcode | Phone Number | | Organization | | | | + +---------+ + + | EXTERNAL LAB | | | | + +---------+ + + C-Reactive Protein (06/05/2018 12:57 AM PDT) + + + + + + | Component | Value | Ref Range | Performed | Pathologist | | | | | At | Signature | + + + + + + | CRP | 0.7 (H)Comment: Testing | mg/dL | EXTERNAL | | | | performed at [facility] | | LAB | | | | [address];[place], [place] | | | | | | [phone] | | | | + + + [...] + | Diagnosis | + + | Right flank pain Abdominal pain, unspecified site | + + | ESRD on peritoneal dialysis (HCC) End stage renal disease | + + | Non-compliance with treatment Personal history of noncompliance with medical | | treatment, presenting hazards to health | + + | Ovarian mass, right | + + documented in this encounter
--- OUTSIDE RECORDS SUMMARY | ~2020-04-05 | XMS | Encounter Summary ---
Demographics + + + | Address | [address] | | | [place] [address] | + + + | Home Phone | | + + + | Preferred Language | Unknown | + + + | Marital Status | | + + + | Spiritism Affiliation | Unknown | + + + [...] [place], [place] | | | | | [address] | | + + + + + | Lydia Palm | ECON | [place], [place] | | | | | [address] | | + + + + + | melinda METZ" | ECON | [place], [place] | | | reba | | [address] | | + + + + + | Tyler Oconnor | ECON | [place] | | | | | [place] | | | | | [address] | | + + + + + Care Team Providers + +------+ + | Care Arts And Crafts Instructor Name | Role | Phone | + +------+ + | Juan F Whitley DO | PCP | | + +------+ + Encounter Details +--------+ + + + + | Date | Type | Department | Care Team | Description | +--------+ + + + + | 12/24/ | Hospital | [facility] | Espinoza, | Abdominal pain, | | 2019 - | Encounter | [facility] | MD [address] | unspecified | | | | CLINICAL DECISION | [address] | abdominal location; | | 12/27/ | | [address] | [place] [address] | End-stage renal | | 2019 | | [place], [place] | [phone] | disease on | | | | [address] | | peritoneal dialysis | | | | [phone] | | ([facility]); Anemia in | | | | | | ESRD (end-stage | | | | | | renal disease) | | | | | | ([facility]); | | | | | | Hyperphosphatemia; [...] | Blood Pressure | 104/63 | 12/27/2018 3:21 PM | | | | | PST | | + + + + + | Pulse | 74 | 12/27/2018 3:21 PM | | | | | PST | | + + + + + | Temperature | 36.8 C (98.3 F) | 12/27/2018 3:21 PM | | | | | PST | | + + + + + | Respiratory Rate | 19 | 12/27/2018 3:21 PM | | | | | PST | | + + + + + | Oxygen Saturation | - | - | | + + + + + | Inhaled Oxygen | - | - | | | Concentration | | | | + + + + + | Weight | 81.3 kg (179 lb 3.7 | 12/27/2018 3:21 PM | | | | oz) | PST | | + + + + + | Height | 157.5 cm (5' 2") | 12/27/2018 3:21 PM | | | | | PST | | + + + + + | Body Mass Index | 32.78 | 12/27/2018 3:21 PM | | | | | PST | | + + + + + documented in this encounter Discharge Summaries Hilda Edwards DO - 12/27/2018 12:45 PM PSTFormatting of this note might be different fr om the original. Discharge Summaries by Hilda Edwards DO at 12/27/18 1248 Author: Hilda Edwards DO Service: Hospitalist Author Type: Physician Filed: 12/27/18 3165 Date of Service: 12/27/18 1241 Status: Signed Foil Spooler: Hilda Edwards DO (Physician) Patient: Ramona Oconnor : 1980 Date of Admission: 12/24/2018 Date of Discharge: 12/27/2018 Treatment Team: Consulting Physician: Chago Chi MD Consulting Physician: Tyler Kaye DO Admitting Provider: Jose Doran MD Discharging Provider: Hilda Edwards DO [...] PD associated peritonitis. She was transferred from [place] for [facility]. In ED at [facility] CT abd was performed, imaging [...] the need for OB follow up, guadalupe yeboah she had no acute pain while inpatient. [...] Information: Follow up: [place] [address] [facility] [address] Medication List CONTINUE taking these medications ALPRAZolam 0.5 MG tablet Refills: 0 Commonly known as: XANAX amLODIPine 2.5 MG tablet Refills: 0 Commonly known as: NORVASC cefdinir 300 MG capsule QTY: 9 capsule Refills: 0 Commonly known as: OMNICEF Take 1 capsule by mouth daily. clonazePAM 0.5 MG tablet Refills: 0 Commonly known as: KlonoPIN ergocalciferol 16405 units capsule Refills: 0 Commonly known as: [...] disc harge summary. Hilda Edwards 12:52 PM documented in this encounter Medications at Time [...] Progress Notes Conversion Transaction, Provider Unknown - 12/27/2018 3:30 PM PSTFormatting of this note m ight be different from the original. Nurse Progress Note by Phillip Gonzalez RN at 12/27/18 1530 Author: Phillip Gonzalez RN Service: (none) Author Type: Registered Nurse Filed: 12/27/18 1534 Date of Service: 12/27/181529 Status: Signed Foil Spooler: Phillip Gonzalez RN (Registered Nurse) Pt given AVS discharge paperwork and it was reviewed with he, her SO, and her mom. There we re no new prescriptions. Pt denied any questions. IV was removed with catheter intact and ba ndage was applied. Pt was Escorted down to her SO's car via wheelchair with her belongings i n hand. Phillip Gonzalez RN Tyler Bar DO - 12/27/2018 10:07 AM PSTFormatting of this note might be different from the ave maira. Progress Notes by Tyler Kaye DO at 12/27/18 1007 Author: Tyler Kaye DO Service: Infectious Disease Author Type: Physician Filed: 12/27/18 1156 Date of Service: 12/27/18 1007 Status: Signed Foil Spooler: Tyler Kaye DO (Physician) [facility] Service: Infectious Disease Progress Note Hospital [...] OR acetaminophen, ALPRAZolam, HYDROcodone-acetaminophen, HYDROmorphone OR HYDROmorphone, igehcgjeq-fifgza-bybgnljufw, ondansetron OR ondansetron, polyethylen e glycol, simethicone, [...] Code Status: Full Code TYLER KAYE DO 12/27/2018 onversion Transaction , Provider Unknown - 12/27/2018 7:09 AM PST Progress Notes by Minerva Cruz RPH at 12/27/18 07 Author: Minerva Cruz RPH Service: Pharmacy Author Type: Pharmacist Filed: 12/27/18 0709 Date of Service: 12/27/18708 Status: Signed Foil Spooler: Minerva Cruz RPH (Pharmacist) Clinical Pharmacy Note: Vancomycin Day 3 Vanco random level today 20.5 mcg/mL; higher than goal 15 to 20 mcg/mL. No dose today. Next vanco trough due tomorrow with AM labs. Bridgett Rizo 12/27/2018 7:06 AM onver patric Transaction, Provider Unknown - 12/27/2018 5:00 AM PST Nurse Progress Note by Maryse Khan RN at 12/27/18 0500 Author: Maryse Khan RN Service: (none) Author Type: Registered Nurse Filed: 12/27/18 0751 Date of Service: 12/27/18 0500 Status: Signed Foil Spooler: Maryse Khan RN (Registered Nurse) End of shift chart audit complete. Maryse Khan RN onver patric Transaction, Provider Unknown - 12/26/2018 7:39 PM PST Nurse Progress Note by Phillip Gonzalez RN at 12/26/181938 Author: Phillip Gonzalez RN Service: (none) Author Type: Registered Nurse Filed: 12/26/181938 Date of Service: 12/26/181938 Status: Signed Foil Spooler: Phillip Gonzalez RN (Registered Nurse) Chart check complete. Phillip Gonzalez RN Hilda Peraza DO - 12/26/2018 4:41 PM PST Progress Notes by Hilda Edwards DO at 12/26/18 1641 Author: Hilda Edwards DO Service: Hospitalist Author Type: Physician Filed: 12/26/181651 Date of Service: 12/26/18 164 Status: Signed Foil Spooler: Hilda Edwards DO (Physician) [facility] Service: Hospitalist Progress Note Hospital Day: [...] TID WC Continuous Infusions cefTAZidime 1 g (12/26/18627) famotidine vancomycin PRN Medications acetaminophen OR acetaminophen, ALPRAZolam, HYDROcodone-acetaminophen, HYDROmorphone OR HYDROmorphone, vywlwogwg-kyeczp-gabygzzkfi, ondansetron OR ondansetron, polyethylen e glycol, simethicone, [...] Code Status: Full Code Hilda Edwards DO 12/26/2018 onversion Transact ion, Provider Unknown - 12/26/2018 7:18 AM PSTFormatting of this note might be different fr om the original. Nurse Progress Note by Ag Flores RN at 12/26/18717 Author: Ag Flores RN Service: (none) Author Type: Registered Nurse Filed: 12/26/1844 Date of Service: 12/26/18717 Status: Signed Foil Spooler: Ag Flores RN (Registered Nurse) End of shift note Pt finished peritoneal dialysis in AM. Pt continued to feel nauseous; received Zofran x2. V VS. 24 hour chart check complete onver patric Transaction, Provider Unknown - 12/26/2018 6:56 AM PST Pharmacy Note by Ryan Anand RPH at 12/26/18655 Author: Ryan Anand RPH Service: Pharmacy Author Type: Pharmacist Filed: 12/26/1856 Date of Service: 12/26/18655 Status: Signed Foil Spooler: Ryan Anand RPH (Pharmacist) Clinical Pharmacy Note: Vancomycin Day 2 Pharmacy dosing vancomycin for peritoneal dialysis Weight: 80.3 kg WBC: 14.91 INDICATION: peritonitis associated with peritoneal dialysis Vanco random level today 22.7 mcg/mL; higher than goal 15 to 20 mcg/mL. No dose today. Daily level - Next level due tomorrow with AM labs. RYAN ANAND Pharmacist 12/26/2018 6:54 AM onver patric Transaction, Provider Unknown - 12/25/2018 7:09 PM PST Nurse Progress Note by Phillip Gonzalez RN at 12/25/181908 Author: Phillip Gonzalez RN Service: (none) Author Type: Registered Nurse Filed: 12/25/181909 Date of Service: 12/25/181908 Status: Signed Foil Spooler: Phillip Gonzalez RN (Registered Nurse) Pt care taken over from Liza MARTINEZ. This nurse agrees with her assessments. Pt currently unde rgoing peritoneal dialysis. Chart check complete. Phillip Gonzalez RN pHilda davenport DO - 12/25/2018 3:53 PM PST Progress Notes by Hilda Edwards DO at 12/25/181552 Author: Hilda Edwards DO Service: Hospitalist Author Type: Physician Filed: 12/25/181757 Date of Service: 12/25/181552 Status: Addendum Foil Spooler: Hilda Edwards DO (Physician) Related Notes: Original Note by Hilda Edwards DO (Physician) filed at 12/25/181757 [facility] Service: Hospitalist Progress Note Hospital Day: [...] OR acetaminophen, ALPRAZolam, HYDROcodone-acetaminophen, HYDROmorphone OR HYDROmorphone, hnptaexql-xsuuuc-aeydhjdeku, ondansetron OR ondansetron, polyethylen e glycol, zolpidem [...] Code Status: Full Code Hilda Edwards DO 12/25/2018 onversion Transact ion, Provider Unknown - 12/25/2018 1:25 PM PSTFormatting of this note might be different fr om the original. Nurse Progress Note by Liza Santana RN at 12/25/18 9528 Author: Liza Santana RN Service: (none) Author Type: Registered Nurse Filed: 12/25/18 1321 Date of Service: 12/25/181324 Status: Signed Foil Spooler: Liza Santana RN (Registered Nurse) Talked with Dr. Chi - he does not think patient needs to stay in the hospital at this rl e as she can receive the antibiotics intraperitoneally with dialysis and the cell count is n ot elevated enough to warrant continued admission. He will come back once patient is awake t o talk about further details, as well as touch base with Dr. Edwards. onver patric Transaction, Provider Unknown - 12/25/2018 12:49 PM PST Nurse Progress Note by Liza Santana RN at 12/25/181248 Author: Liza Santana RN Service: (none) Author Type: Registered Nurse Filed: 12/25/18 1256 Date of Service: 12/25/181248 Status: Signed Foil Spooler: Liza Santana RN (Registered Nurse) Report handed off to Dimitris RN who will assume care of patient. Called Dr. Edwards regarding p atient's code status, need updated POLST form to support DNR/DNI. Dr. Edwards will come talk with pt to clarify her wishes. onver patric Transaction, Provider Unknown - 12/25/2018 12:36 PM PST Pharmacy Note by Katherine Sheehan RPH at 12/25/18 1236 Author: Katherine Sheehan RPH Service: Pharmacy Author Type: Pharmacist Filed: 12/25/18 123 Date of Service: 12/25/181235 Status: Signed Foil Spooler: Katherine Sheehan RPH (Pharmacist) Discussed with Dr. Chi. He would like to continue with IV antibiotics only at this point and no need to add antibiotics to IP fluid exchange. Dosing recommendations and protocol state to dose ceftazidime 500 mg IV q24, however, per D kalina Chi will increase maintenance dose to ceftazidime 1g IV q24h Katherine Sheehan PharmD, [facility] onver patric Transaction, Provider Unknown - 12/25/2018 9:15 AM PST Nurse Progress Note by Liza Santana RN at 12/25/18914 Author: Liza Santana RN Service: (none) Author Type: Registered Nurse Filed: 12/25/18915 Date of Service: 12/25/18914 Status: Signed Foil Spooler: Liza Santana RN (Registered Nurse) Per family, patient resting at this time, asked for pt to be allow to sleep undisturbed. onver patric Transaction, Provider Unknown - 12/25/2018 8:35 AM PST Case Management by LUCILLE Calvo at 12/25/18834 Author: LUCILLE Calvo Service: (none) Author Type: Fabrication And Layout Craftsman Filed: 12/25/18834 Date of Service: 12/25/18834 Status: Signed Foil Spooler: LUCILLE Calvo (Fabrication And Layout Craftsman) CM met with pt for discharge planning. Pt is 38 years old and lives with her in a 1 -level home. Pt has 1 stair at the main entrance. Pt is independent with her mobility. Pt de nied any difficulty obtaining her medications and had no resource concerns at this time. CM will continue to follow as needed. 12/25/18833 Discharge Planning Evaluation Admitting Diagnosis Abdominal Pain Readmission Yes-within 30 days Reason for readmission Abdominal pain Last discharge disposition Home Needs met at last discharge Yes Picked up discharge Rx medications Yes Started prescribed DC meds Yes Understood discharge instructions Yes Assistance available Yes Concerns for meeting needs No Living Arrangements Spouse/significant other Support Systems Spouse/significant other Type of Residence Private residence House type House-1 story Steps to enter 1 Bathrooms on 1st Floor 1-Full Independent with ADL's Yes Independent with Mobility Yes Home Care Services No Caregiver after Discharge Yes Relationship to Patient spouse Mental Status Oriented Anticipated Discharge Plan Post Acute Care Needs None at this time Resources Financial concerns No Transportation issues No Patient/Family concerns No Prescription Plan Yes Anticipated Disposition Facility Type Home Medicare Important Message (BLANCA) Not applicable Met with: Patient and discussed discharge planning, Pt is a 38 y.o., female Patient's PCP is: JUAN F WHITLEY Patient's insurance: Medicare Coverage concerns: None Medication coverage/concerns: None Community resources utilized / needed: None Assistance in transportation: Not needed. Identification of any specific education / training: None Barriers to Discharge / Alternative housing needed: None Anticipated DCP: Home onver patric Transaction, Provider Unknown - 12/25/2018 7:18 AM PST Nurse Progress Note by Liza Santana RN at 12/25/18717 Author: Liza Santana RN Service: (none) Author Type: Registered Nurse Filed: 12/25/18718 Date of Service: 12/25/18717 Status: Signed Foil Spooler: Liza Santana RN (Registered Nurse) Mode Ramires RN at the bedside for peritoneal dialysis. Patient to be hooked up for 6 hour s this morning, then will have additional dialysis tonight. onver patric Transaction, Provider Unknown - 12/25/2018 6:26 AM PST Nurse Progress Note by Nadege Gupta RN at 12/25/18625 Author: Nadege Gupta RN Service: (none) Author Type: Registered Nurse Filed: 12/25/18625 Date of Service: 12/25/18625 Status: Signed Foil Spooler: Nadege Gupta RN (Registered Nurse) End of shift chart audit completed. onver patric Transaction, Provider Unknown - 12/25/2018 5:49 AM PST Pharmacy Note by Ryan Anand RPH at 12/25/18548 Author: Ryan Anand RPH Service: Pharmacy Author Type: Pharmacist Filed: 12/25/18548 Date of Service: 12/25/18548 Status: Signed Foil Spooler: Ryan Anand RPH (Pharmacist) Clinical Pharmacy Note: Renal Monitoring Height: 157.5 cm Weight: 80.3 kg Patient is on peritoneal dialysis. Pharmacy dosing for renal function per Dr. Martinez. Will order the following dosage adjustments: Pepcid 20 mg IV/PO Q24H Ceftazidime 2 g IV once (per recommendation of Dr. Chi). Will then decrease to 500 mg IV Q24H per recommended dosing guidelines; however, would like dayshift pharmacist to check wit h nephrology for dose preference and route preference (added to peritoneal fluid exchanges i nstead of IV). Pharmacy will continue to follow and adjust medications as needed. Bridgett RANDALL 12/25/2018 5:26 AM onver patric Transaction, Provider Unknown - 12/25/2018 5:25 AM PST Pharmacy Note by Ryan Anand RPH at 12/25/18524 Author: Ryan Anand RPH Service: Pharmacy Author Type: Pharmacist Filed: 12/25/18524 Date of Service: 12/25/18524 Status: Signed Foil Spooler: Ryan Anand RPH (Pharmacist) Clinical Pharmacy Note: Vancomycin Day 1 Pharmacy dosing vancomycin for peritoneal dialysis Height: 157.5 cm Weight: 80.3 kg WBC: 14.91 Serum creatinine: 14.3 mg/dL (H) 12/25/18207 Estimated creatinine clearance: 5.1 mL/min (A) INDICATION: peritonitis associated with peritoneal dialysis Will begin with 1000 mg IV today, followed by 1000 mg IV for level less than 20 mg/mL. May need to decrease dose to 750 mg IV. Expect will need dose every 48 to 72 hours. Daily random level - goal 15 to 20 mcg/mL. Bridgett RANDALL 12/25/2018 5:20 AM onver patric Transaction, Provider Unknown - 12/25/2018 3:01 AM PST Nurse Progress Note by Nadege Gupta RN at 12/25/18 0301 Author: Nadege Gupta RN Service: (none) Author Type: Registered Nurse Filed: 12/25/18 0348 Date of Service: 12/25/18 0301 Status: Signed Foil Spooler: Nadege Gupta RN (Registered Nurse) Peritoneal fluid collected by PD Nurse from the PD cath and was sent to lab. onver patric Transaction, Provider Unknown - 12/24/2018 11:53 PM PST Nurse Progress Note by Nadege Gupta RN at 12/24/182352 Author: Nadege Gupta, RN Service: (none) Author Type: Registered Nurse Filed: 12/24/182355 Date of Service: 12/24/182352 Status: Signed Foil Spooler: Nadege Gupta RN (Registered Nurse) Called Dr. Chi regarding peritoneal dialysis tonight. Per MD, pt will not be dialyze iman mao and that he will evaluate the pt tomorrow. Will notify Dr. Martinez. docume nted in this encounter Plan of Treatment Not on filedocumented as of this encounter Procedures + +--------+ + + + | Procedure Name | Priori | Date/Time | Associated Diagnosis | Comments | | | ty | | | | + +--------+ + + + | CBC NO DIFFERENTIAL | Routin | 12/27/2018 | | Results for this | | | e | 5:44 AM | | procedure are in the | | | | PST | | results section. | + +--------+ + + + | VANCOMYCIN LEVEL | Routin | 12/27/2018 | | Results [...] | EXTERNAL LAB: CBC | Routin | 12/26/2018 | | Results for this | | | e | 8:13 AM | | procedure are in the | | | | PST | | results section. | + +--------+ + + + | ECG 12 LEAD | Routin | 12/26/2018 | | Results for this | | | e | 7:46 AM | | procedure are in the | | | | PST | | results section. | + +--------+ + + + | VANCOMYCIN LEVEL | Routin | 12/26/2018 | | Results for this | | | e | 5:38 AM | | procedure are in the | | | | PST | | results section. | + +--------+ + + + | RENAL FUNCTION PANEL | Routin | 12/26/2018 | | Results for this | | | e | 5:38 AM | | procedure are in the | | | | PST | | results section. | + +--------+ + + + | CELL COUNT, BODY | STAT | 12/25/2018 | | Results for this | | FLUID | | 2:50 AM | | procedure are in the | | | | PST | | results section. | + +--------+ + + + | CULTURE, BODY FLUID, | Timed | 12/25/2018 | | Results for this | | STERILE, SMEAR, | | 2:50 AM | | procedure are in the | | WITH ANAEROBES | | PST | | results section. | + +--------+ + + + | CULTURE, BLOOD, 2ND | Timed | 12/25/2018 | | Results for this | | SPECIMEN (NON-ORD) | | 2:09 AM | | procedure are in the | | | | PST | | results section. | + +--------+ + + + | EXTERNAL LAB: CBC | Routin | 12/25/2018 | | Results for this | | | e | 2:08 AM | | procedure are in the | | | | PST | | results section. | + +--------+ + + + | MAGNESIUM | Routin | 12/25/2018 | | Results for this | | | e | 2:08 AM | | procedure are in the | | | | PST | | results section. | + +--------+ + + + | COMPREHENSIVE | Routin | 12/25/2018 | | Results for this | | METABOLIC PANEL | e | 2:08 AM | | procedure are in the | | | | PST | | results section. | + +--------+ + + + | CULTURE, BLOOD | Timed | 12/25/2018 | | Results for this | | | | 1:59 AM | | procedure are in the | | | | PST | | results section. | + +--------+ + + + | MRSA NAAT | Timed | 12/25/2018 | | Results for this | | | | 1:29 AM | | procedure are in the | | | | PST | | results section. | + +--------+ + + + documented in this encounter Results CBC no Differential (12/27/2018 5:44 AM PST) + + + + + + | Component | Value | Ref Range | Performed | Pathologist | | | | | At | Signature | + + + + + + | WBC | 13.46 (H) | 3.80 - 11.00 | EXTERNAL | | | | | K/uL | LAB | | + + + + + + | Red Blood | 4.32 | 3.70 - 5.10 | EXTERNAL | | | Cells | | M/uL | LAB | | | Counted | | | | | + + + + + + | Hemoglobin | 12.7 | 11.3 - 15.5 | EXTERNAL | | | | | g/dL | LAB | | + + + + + + | Hematocrit, | 38.4 | 34.0 - 46.0 % | EXTERNAL | | | POC | | | LAB | | + + + + + + | MCV | 88.9 | 80.0 - 100.0 fl | EXTERNAL | | | | | | LAB | | + + + + + + | MCH | 29.3 | 27.0 - 34.0 pg | EXTERNAL | | | | | | LAB | | + + + + + + | MCHC | 33.0 | 32.0 - 35.5 | EXTERNAL | | | | | g/dL | LAB | | + + + + + + | RDW-CV | 48.1 | 37 - 53 fl | EXTERNAL | | | | | | LAB | | + + + + + + | Platelet | 388 | 150 - 400 K/uL | EXTERNAL | | | Count | | | LAB | | | Plasma | | | | | + + + + + + | MPV | 8.2Comment: Testing | fl | EXTERNAL | | | | performed at [facility], [address] | LAB | | | | [address], | | | | | | [place] [address] | | | | + + + + + + + + | Specimen | + + | | + + + +---------+ + + | Performing | Address | City/State/Zipcode | Phone Number | | Organization | | | | + +---------+ + + | EXTERNAL LAB | | | | + +---------+ + + Vancomycin Level (12/27/2018 5:44 AM PST) + + + + + + | Component | Value | Ref Range | Performed | Pathologist | | | | | At | Signature | + + + + + + | Vancomycin | 20.5Comment: Testing | ug/mL | EXTERNAL | | | Random | performed at [facility] | | LAB | | | | [address];[place], [place] | | | | | | [address] | | | | + + + + + + + + | Specimen | + + | Blood specimen | | (specimen) | + + + +---------+ + + | Performing | Address | City/State/Zipcode | Phone Number | | Organization | | | | + +---------+ + + | EXTERNAL LAB | | | | + +---------+ + + Basic Metabolic Panel (12/27/2018 5:44 AM PST) + + + + + + | Component | Value | Ref Range | Performed | Pathologist | | | | | At | Signature | + + + + + + | Na | 135 | 135 - 145 | EXTERNAL | | | | | mmol/L | LAB | | + + + + + + | K | 3.2 (L)Comment: SPECIMEN | 3.5 - 4.9 | EXTERNAL | | | | SLIGHTLY HEMOLYZED | mmol/L | LAB | | + + + + + + | Cl | 97 (L) | 99 - 109 mmol/L | EXTERNAL | | | | | | LAB | | + + + + + + | CO2 | 20 (L) | 23 - 32 mmol/L | EXTERNAL | | | | | | LAB | | + + + + + + | Anion Gap | 21 (H) | 5 - 20 mmol/L | EXTERNAL | | | | | | LAB | | + + + + + + | Glucose, | 96Comment: SPECIMEN | 65 - 99 mg/dL | EXTERNAL | | | Fasting | SLIGHTLY HEMOLYZED | | LAB | | + + + + + + | BUN | 27 (H) | 8 - 25 mg/dL | EXTERNAL | | | | | | LAB | | + + + + + + | Creatinine | 14.6 (H)Comment: | 0.50 - 1.00 | EXTERNAL | | | | SPECIMEN SLIGHTLY | mg/dL | LAB | | | | HEMOLYZED | | | | + + + + + + | BUN/Creatin | 2 | | EXTERNAL | | | ine Ratio | | | LAB | | + + + + + + | Calcium | 8.7 | 8.5 - 10.5 | EXTERNAL | [...] | | | | | | MDRD IDMI traceable | | | | | | equation.Testing | | | | | | performed at [facility], [address] | | | | | [facility], | | | | | | [place] [address] | | | | + + + [...] + +---------+ + + External Lab: CBC (12/26/2018 8:13 AM PST) + + + + + + | Component | Value | Ref Range | Performed | Pathologist | | | | | At | Signature | + + + + + + | WBC | 12.25 (H) | 3.80 - 11.00 | EXTERNAL | | | | | K/uL | LAB | | + + + + + + | Red Blood | 3.68 (L) | 3.70 - 5.10 | EXTERNAL | | | Cells | | M/uL | LAB | | | Counted | | | | | + + + + + + | Hemoglobin | 10.9 (L) | 11.3 - 15.5 | EXTERNAL | | | | | g/dL | LAB | | + + + + + + | Hematocrit, | 32.3 (L) | 34.0 - 46.0 % | EXTERNAL | | | POC | | | LAB | | + + + + + + | MCV | 87.6 | 80.0 - 100.0 fl | EXTERNAL | | | | | | LAB | | + + + + + + | MCH | 29.6 | 27.0 - 34.0 pg | EXTERNAL | | | | | | LAB | | + + + + + + | MCHC | 33.8 | 32.0 - 35.5 | EXTERNAL | | | | | g/dL | LAB | | + + + + + + | RDW-CV | 48.1 | 37 - 53 fl | EXTERNAL | | | | | | LAB | | + + + + + + | Platelet | 404 (H) | 150 - 400 K/uL | EXTERNAL | | | Count | | | LAB | | | Plasma | | | | | + + + + + + | MPV | 7.7 | fl | EXTERNAL | | | | | | LAB | | + + + + + + | Differentia | AUTOMATED | | EXTERNAL | | | l Type | | | LAB | | + + + + + + | % Segmented | 82.96 | % | EXTERNAL | | | | | | LAB | | | Neutrophils | | | | | + + + + + + | % | 9.80 | % | EXTERNAL | | | Lymphocytes | | | LAB | | + + + + + + | % Monocytes | 5.65 | % | EXTERNAL | | | | | | LAB | | + + + + + + | % | 1.08 | % | EXTERNAL | | | Eosinophils | | | LAB | | + + + + + + | % Basophils | 0.51 | % | EXTERNAL | | | | | | LAB | | + + + + + + | Absolute | 10.16 (H) | 1.90 - 7.40 | EXTERNAL | | | Segmented | | K/uL | LAB | | | Neutrophils | | | | | + + + + + + | Absolute | 1.20 | 1.00 - 3.90 | EXTERNAL | | | Lymphocytes | | K/uL | LAB | | + + + + + + | Absolute | 0.69 | 0.00 - 0.80 | EXTERNAL | | | Monocytes | | K/uL | LAB | | + + + + + + | Absolute | 0.13 | 0.00 - 0.50 | EXTERNAL | | | Eosinophils | | K/uL | LAB | | + + + + + + | Absolute | 0.06Comment: Testing | 0.00 - 0.10 | EXTERNAL | | | Basophils | [place] at [facility] | K/uL | LAB | | | | [address];[place] | | | | | | [address] | | | | + + + [...] + +---------+ + + ECG 12 lead (12/26/2018 7:46 AM PST) + + + + + + | Component | Value | Ref Range | Performed | Pathologist | | | | | At | Signature | + + + + + + | DIAGNOSIS: | Normal sinus | | EXTERNAL | | | | rhythmIncomplete right | | LAB | | | | bundle branch blockST & | | | | | | T wave abnormality, | | | | | | consider anterolateral | | | | | | ischemiaProlonged | | | | | | QTAbnormal ECGNo | | | | | | previous ECGs | | | | | | availableConfirmed by | | | | | | CHAGO NATION MD ([id number]) | | | | | | on 12/27/2018 7:44:23 PM | | | | + + + + + + + + | Specimen | + + | | + + + + + | Narrative | Performed At | + + + | Historically converted procedure from [facility] Epic environment | EXTERNAL LAB | + + + + +---------+ + + | Performing | Address | City/State/Zipcode | Phone Number | | Organization | | | | + +---------+ + + | EXTERNAL LAB | | | | + +---------+ + + Vancomycin Level (12/26/2018 5:38 AM PST) + + + + + + | Component | Value | Ref Range | Performed | Pathologist | | | | | At | Signature | + + + + + + | Vancomycin | 22.7Comment: Testing | ug/mL | EXTERNAL | | | Random | performed at [facility] | | LAB | | | | [address];[place], [place] | | | | | | [address] | | | | + + + [...] + +---------+ + + Renal Function Panel (12/26/2018 5:38 AM PST) + + + + + + | Component | Value | Ref Range | Performed | Pathologist | | | | | At | Signature | + + + + + + | Na | 141 | 135 - 145 | EXTERNAL | | | | | mmol/L | LAB | | + + + + + + | K | 3.5 | 3.5 - 4.9 | EXTERNAL | | | | | mmol/L | LAB | | + + + + + + | Cl | 98 (L) | 99 - 109 mmol/L | EXTERNAL | | | | | | LAB | | + + + + + + | CO2 | 23 | 23 - 32 mmol/L | EXTERNAL | | | | | | LAB | | + + + + + + | Anion Gap | 24 (H) | 5 - 20 mmol/L | EXTERNAL | | | | | | LAB | | + + + + + + | Glucose, | 94 | 65 - 99 mg/dL | EXTERNAL | | | Fasting | | | LAB | | + + + + + + | BUN | 22 | 8 - 25 mg/dL | EXTERNAL | | | | | | LAB | | + + + + + + | Creatinine | 13.11 (H) | 0.50 - 1.00 | EXTERNAL | | | | | mg/dL | LAB | | + + + + + + | Calcium | 8.3 (L) | 8.5 - 10.5 | EXTERNAL | | | | | mg/dL | LAB | | + + + + + + | Albumin | 3.9 | 3.6 - 5.0 g/dL | EXTERNAL | | | | | | LAB | | + + + + + + | PHOSPHORUS | 8.7 (H) | 2.3 - 4.8 mg/dL | EXTERNAL [...] | | | | | | MDRD IDMI traceable | | | | | | equation.Testing | | | | | | performed at [facility] | | | | | | [facility];[place], [place] | | | | | | [address] | | | | + + + [...] Culture, Body Fluid, Sterile, Smear, with Anaerobes (12/25/2018 2:50 AM PST) + + | Specimen | + + | Body fluid sample | | (specimen) | + + + + + | Narrative | Performed At | + + + | Specimen Description PERITONEAL FLUID GRAM | EXTERNAL LAB | | STAIN WBC'S SEEN | | | NO ORGANISMS SEEN CULTURE | | | NO GROWTH 4 DAYS | | + + + + +---------+ + + | Performing | Address | City/State/Zipcode | Phone Number | | Organization | | | | + +---------+ + + | EXTERNAL LAB | | | | + +---------+ + + Cell Count, Body Fluid (12/25/2018 2:50 AM PST) + + | Specimen | + + | | + + + + + | Narrative | Performed At | + + + | FLUID TYPE PERITONEAL COLOR | EXTERNAL LAB | | COLORLESS APPEARANCE | | | CLEAR RBC'S | | | <10278 TOTAL NUCLEATED CELLS | | | 109 NEUTROPHILS | | | 92 LYMPHOCYTES 5 | | | MONOCYTES/MACROPHAGES 3 | | | CELLS COUNTED 100 Testing | | | performed at [facility] [place] [address];[place] [address] | | + + + + +---------+ + + | Performing | Address | City/State/Zipcode | Phone Number | | Organization | | | | + +---------+ + + | EXTERNAL LAB | | | | + +---------+ + + Culture, Blood, 2nd Specimen (12/25/2018 2:09 AM PST) + + | Specimen | + + | Blood specimen | | (specimen) | + + + + + | Narrative | Performed At | + + + | Specimen Description BLOOD SPECIAL | EXTERNAL LAB | | REQUESTS LEFT WRIST CULTURE | | | NO GROWTH 6 DAYS | | + + + + +---------+ + + | Performing | Address | City/State/Zipcode | Phone Number | | Organization | | | | + +---------+ + + | EXTERNAL LAB | | | | + +---------+ + + External Lab: CBC (12/25/2018 2:08 AM PST) + + + + + + | Component | Value | Ref Range | Performed | Pathologist | | | | | At | Signature | + + + + + + | WBC | 14.91 (H) | 3.80 - 11.00 | EXTERNAL | | | | | K/uL | LAB | | + + + + + + | Red Blood | 3.56 (L) | 3.70 - 5.10 | EXTERNAL | | | Cells | | M/uL | LAB | | | Counted | | | | | + + + + + + | Hemoglobin | 10.3 (L) | 11.3 - 15.5 | EXTERNAL | | | | | g/dL | LAB | | + + + + + + | Hematocrit, | 31.9 (L) | 34.0 - 46.0 [...] MCHC | 32.4 | 32.0 - 35.5 | EXTERNAL | | | | | g/dL | LAB | | + + + + + + | RDW-CV | 49.0 | 37 - 53 fl | EXTERNAL | | | | | | LAB | | + + + + + + | Platelet | 386 | 150 - 400 K/uL | EXTERNAL | | | Count | | | LAB | | | Plasma | | | | | + + + + + + | MPV | 8.5 | fl | EXTERNAL | | | | | | LAB | | + + + + + + | Differentia | MANUAL | | EXTERNAL | | | l Type | | | LAB | | + + + + + + | Segmented | 82 | % | EXTERNAL | | | Neutrophils | | | LAB | | | Manual | | | | | + + + + + + | % | 1 | % | EXTERNAL | | | Myelocytes | | | LAB | | + + + + + + | Lymphocytes | 13 | % | EXTERNAL | | | Manual | | | LAB | | + + + + + + | Monocytes | 4 | % | EXTERNAL | | | Manual | | | LAB | | + + + + + + | Absolute | 12.22 (H) | 1.90 - 7.40 | EXTERNAL | | | Neutrophils | | K/uL | LAB | | + + + + + + | Absolute | 0.15 (H) | K/uL | EXTERNAL | | | Myelocytes | | | LAB | | + + + + + + | Absolute | 1.94 | 1.00 - 3.90 | EXTERNAL | | | Lymphocytes | | K/uL | LAB | | + + + + + + | Absolute | 0.60 | 0.00 - 0.80 | EXTERNAL | | | Monocytes | | K/uL | LAB | | + + + + + + | Platelet | INCREASED | | EXTERNAL | | | Estimate | | | LAB | | + + + + + + | RBC | RBC AND PLT MORPHOLOGY | | EXTERNAL | | | Morphology | APPEAR NORMALComment: | | LAB | | | | Testing performed at | | | | | | [facility], [address] | | | | | | [place], [place] | | | | | | [address] | | | | + + + + + + + + | Specimen | + + | Blood specimen | | (specimen) | + + + +---------+ + + | Performing | Address | City/State/Zipcode | Phone Number | | Organization | | | | + +---------+ + + | EXTERNAL LAB | | | | + +---------+ + + Magnesium (12/25/2018 2:08 AM PST) + + + + + + | Component | Value | Ref Range | Performed | Pathologist | | | | | At | Signature | + + + + + + | Magnesium | 3.0 (H)Comment: Testing | 1.7 - 2.4 mg/dL | EXTERNAL | | | | performed at [facility], [address] | | LAB | | | | [address], | | | | | | [place] [address] | | | | + + + [...] + +---------+ + + Comprehensive Metabolic Panel (12/25/2018 2:08 AM PST) + + + + + + | Component | Value | Ref Range | Performed | Pathologist | | | | | At | Signature | + + + + + + | Na | 138 | 135 - 145 | EXTERNAL | | | | | mmol/L | LAB | | + + + + + + | K | 2.9 (L) | 3.5 - 4.9 | EXTERNAL [...] 17 | 5 - 20 mmol/L | EXTERNAL | | | | | | LAB | | + + + + + + | Glucose, | 95 | 65 - 99 mg/dL | EXTERNAL | | | Fasting | | | LAB | | + + + + + + | BUN | 29 (H) | 8 - 25 mg/dL | EXTERNAL | | | | | | LAB | | + + + + + + | Creatinine | 14.3 (H) | 0.50 - 1.00 | EXTERNAL | | | | | mg/dL | LAB | | + + + + + + | BUN/Creatin | 2 | | EXTERNAL | | | ine Ratio | | | LAB | | + + + + + + | Calcium | 8.0 (L) | 8.5 - 10.5 | EXTERNAL | | | | | mg/dL | LAB | | + + + + + + | Protein, | 6.6 | 6.3 - 8.2 g/dL | EXTERNAL | | | Total | | | LAB | | + + + + + + | Albumin | 2.4 (L) | 3.6 - 5.0 g/dL | EXTERNAL | | | | | | LAB | | + + + + + + | Globulin | 4.2 | 1.3 - 4.9 g/dL | EXTERNAL | | | | | | LAB | | + + + + + + | A/G Ratio | 0.6 (L) | 1.0 - 2.4 | EXTERNAL | | | | | | LAB | | + + + + + + | Bilirubin | 0.3 | 0.1 - 1.5 mg/dL | EXTERNAL | | | Total | | | LAB | | + + + + + + | ALP, | 76 | 35 - 115 U/L | EXTERNAL | | | External | | | LAB | | + + + + + + | AST | 16 | 10 - 45 U/L | EXTERNAL [...] | | | | | performed at [facility], [address] | | | [address] [place], | | | | | | [place] [address] | | | | + + + + + + + + | Specimen | + + | Blood specimen | | (specimen) | + + + +---------+ + + | Performing | Address | City/State/Zipcode | Phone Number | | Organization | | | | + +---------+ + + | EXTERNAL LAB | | | | + +---------+ + + Culture, Blood (12/25/2018 1:59 AM PST) + + | Specimen | + + | Blood specimen | | (specimen) | + + + + + | Narrative | Performed At | + + + | Specimen Description BLOOD SPECIAL | EXTERNAL LAB | | REQUESTS LAC CULTURE | | | NO GROWTH 6 DAYS | | + + + + +---------+ + + | Performing | Address | City/State/Zipcode | Phone Number | | Organization | | | | + +---------+ + + | EXTERNAL LAB | | | | + +---------+ + + MRSA NAAT (12/25/2018 1:29 AM PST) + + | Specimen | + + | | + + + + + | Narrative | Performed At | + + + | SOURCE NARES(NOSE) MRSA | EXTERNAL LAB | | PCR NEGATIVE Testing | | | performed at [facility] [place] [address];[place] [address] | | + + + + +---------+ + + | Performing | Address | City/State/Zipcode | Phone Number | | Organization | | | | + +---------+ + + | EXTERNAL LAB | | | | + +---------+ + + documented in this encounter Visit Diagnoses + + | Diagnosis | + + | Abdominal pain, unspecified abdominal location | + + | End-stage renal disease on peritoneal dialysis (HCC) End stage renal disease | + + | Anemia in ESRD (end-stage renal disease) (HCC) Anemia in chronic kidney disease | + + | Hyperphosphatemia Disorders of phosphorus metabolism | + + | Hypoalbuminemia Other disorders of plasma protein metabolism | + + documented in this encounter
--- OUTSIDE RECORDS SUMMARY | ~2020-04-05 | XMS | Encounter Summary ---
Demographics + + + | Address | [address] | | | [place] [address] | + + + | Home Phone | | + + + | Preferred Language | Unknown | + + + | Marital Status | | + + + | Jewish Affiliation | Unknown | + + + | Race | Unknown | + + + | Ethnic Group | Unknown | + + + Author + + + | Author | [facility] | | | and [place] | + + + | Organization | [facility] | | | and [place] | + + + | Address | Unknown | + + + | Phone | Unavailable | + + + Support + + + + + | Name | Relationship | Address | Phone | + + + + + | Lyubov Smalls | ECON | [place], [place] | | | | | [address] | | + + + + + | Lydia Palm | ECON | [place], [place] | | | | | [address] | | + + + + + | melinda METZ" | ECON | [place], [place] | | | [place] | | [address] | | + + + + + | Jose C Oconnor | ECON | [place] | | | | | [place] | | | | | [address] | | + + + + + Care Team Providers + +------+ + | Care Brush Maker Name | Role | Phone | + +------+ + | Unknown, Physician | PCP | | + +------+ + Reason for Visit +--------+ + | Reason | Comments | +--------+ + | Error | | +--------+ + Encounter Details +--------+ + + + + | Date | Type | Department | Care Team | Description | +--------+ + + + + | 01/12/ | Telephone | [facility] | Samira Dixon, | Error | | 2020 | | VASCULAR SURGERY | RN | | | | | [address] | | | | | | [place] | | | | | | [address] | | | | | | [phone] | | | +--------+ + + + + Social History + +-------+ +--------+ + | Tobacco Use | Types | Packs/Day | Years | Date | | | | | Used | | + +-------+ +--------+ + | Former Smoker | | 0.25 | 10 | Quit: 2005 | + +-------+ +--------+ + + +---+---+---+ [...]
--- OUTSIDE RECORDS SUMMARY | ~2020-04-05 | XMS | Encounter Summary ---
Demographics + + + | Address | [address] | | | [place] [address] | + + + | Home Phone | | + + + | Preferred Language | Unknown | + + + | Marital Status | | + + + | Mandaen Affiliation | Unknown | + + + | Race | Unknown | + + + | Ethnic Group | Unknown | + + + Author + + + | Author | [facility] | | | and [place] | + + + | Organization | [facility] | | | and [place] | + + + | Address | Unknown | + + + | Phone | Unavailable | + + + Support + + + + + | Name | Relationship | Address | Phone | + + + + + | Lyubov Smalls | ECON | [place], [place] | | | | | [address] | | + + + + + | Lydia Palm | ECON | [place], [place] | | | | | [address] | | + + + + + | melinda METZ" | ECON | [place], [place] | | | [place] | | [address] | | + + + + + | Jose C Oconnor | ECON | [place] | | | | | [place] | | | | | [address] | | + + + + + Care Team Providers + +------+ + | Care Display Specialist Name | Role | Phone | + +------+ + | No, Physician | PCP | Unavailable | + +------+ + Reason for Visit +--------+ + | Reason | Comments | +--------+ + | Pre-Op | confirmed arrival for 11/05 procedure | +--------+ + Encounter Details +--------+ + + + + | Date | Type | Department | Care Team | Description | +--------+ + + + + | 11/04/ | Telephone | [facility] | [place], | Pre-Op (confirmed | | 2019 | | CENTER CV INTRA OP | MD Kary Gonzalez | arrival for 11/05 | | | | [address] | [address] | procedure) | | | | [place], [place] | [place] [address] | | | | | [address] | [phone] | | | | | [phone] | | | +--------+ + + + [...]
--- OUTSIDE RECORDS SUMMARY | ~2020-04-05 | XMS | Encounter Summary ---
Demographics + + + | Address | [address] | | | [place] [address] | + + + | Home Phone | | + + + | Preferred Language | Unknown | + + + | Marital Status | | + + + | Christian Affiliation | Unknown | + + + | Race | Unknown | + + + | Ethnic Group | Unknown | + + + Author + + + | Author | [facility] | | | and [place] | + + + | Organization | [facility] | | | and [place] | + + + | Address | Unknown | + + + | Phone | Unavailable | + + + Support + + + + + | Name | Relationship | Address | Phone | + + + + + | Lyubov Smalls | ECON | [place], [place] | | | | | [address] | | + + + + + | Lydia Palm | ECON | [place], [place] | | | | | [address] | | + + + + + | melinda METZ" | ECON | [place], [place] | | | [place]ba | | [address] | | + + + + + | Jose C Oconnor | ECON | [place] | | | | | [place] | | | | | [address] | | + + + + + Care Team Providers + +------+ + | Care Cat Hooker Name | Role | Phone | [...] | | | | | | | ([facility]) | | | | | [...] + + | 08/26/ | Hospital | [facility] | PoQasim de la rosa MD | End-stage renal | | 2019 - | Encounter | [facility] | [address] | disease ([facility]) | | | | INTENSIVE CARE UNIT | [place], [place] | (Primary Dx); | | 08/28/ | | [address] | [address] | Bleeding from | | 2019 | | [place], [place] | | dialysis shunt, | | | | [address] | Frances Rush DO | initial encounter | | | | [phone] | [address] | ([facility]); AV graft | | | | | [place] [address] | malfunction, initial | | | | | [phone] | encounter ([facility]); | | | | | | Gastroesophageal | | | | | [place] MD | reflux disease | | | | | [address] | without esophagitis; | | | | | [place] [address] | Hyperphosphatemia; | | | | | [phone] | Leukocytosis, | | | | | | unspecified type; | | | | | Alyce Sparks MD | S/P arteriovenous | | | | | [address] | (AV) graft repair; | | | | | [place] [address] | Shock (HCC); Wound, | | | | | [phone] | surgical, | | | | | [...] Physician Discharge Summary Patient ID: Ramona Oconnor [id number] 39 y.o. 1980 Admit date: 08/26/2019 Discharge [...] removed in clinic. Vascular office will contact y ou this week for follow up appointment. It [...] mg by mouth | | 0 | 08/23/ | | | (ZOFRAN) 4 mg tablet [...] might be different f rom the original. [facility] Service: Vascular Surgery Progress Note Post-Op Day: 1 SUBJECTIVE Patient Summary: The patient is a 39 y.o. female with significant past medical histor y of ESRD who presented to [facility] with profuse bleeding from her left axillary AVG af ter wound packing was removed. Per emergency department physician report, the patient had ab out 250ml blood loss, venous bleeding. She received 2 units PRBC transfusion and 1Liter susana talloid. She has been hemodynamincally stable. Patient transferred to [facility] for emergency janine viviana and ligation of [...] Full code Man Jeronimo PA-C Vascular Surgery cFerLashawn britt, PIPELINER - 08/28/2019 3:45 AM PDTFormatting of this note might be different from the [facility] Service: [place] Progress Note Ramona Oconnor 39 y.o. Hospital [...] nt has been followed by the [facility] wound care clinic. She presented to [facility] ED from [facility] wound care clinic with profuse bleeding of her L axilla after her wound packing was remov ed. Per report EBL was 250 cc of venous blood. She received 1 L crystalloid and 2 units PRBC prior to arrival at [facility] and remained hemodynamically stable. Patient was transferred to [facility] for ligation of the AVG [...] Last HD 08/25. See Dr. Chi following, REFERRAL MANAGER per nephrology. 1.5 L fluid restricti on in 24 hours per Nephrology. Renally dose medication and avoid nephrotoxins Monitor I/Os Monitor electrolytes. Hyperphosphatemia. Resolved. Continue home dose of Renvela once patient eating. Hyperkalemia. REFERRAL MANAGER per Nephrology ID: Patient with nonhealing AVG wound. Followed by [facility] wound care clinic. Patient [...] PA- C - 08/27/2019 12:31 PM PDT [facility] Service: Vascular Surgery Progress Note Post-Op Day: 1 SUBJECTIVE Patient Summary: The patient is a 39 y.o. female with significant past medical histor y of ESRD who presented to [facility] with profuse bleeding from her left axillary AVG af ter wound packing was removed. Per emergency department physician report, the patient had ab out 250ml blood loss, venous bleeding. She received 2 units PRBC transfusion and 1Liter susana talloid. She has been hemodynamincally stable. Patient transferred to [facility] for emergency janine viviana and ligation of [...] this note might be different from the [facility] Service: [place] Progress Note Ramona Emmanuel Elvin 39 y.o. Hospital Day: LOS: 1 day Post-Op Day: 1 Day Post-Op Consulting Physicians SUBJECTIVE Patient Summary: Per Lashawn Jansen's H&P 08/27: "The patient is a 39 y.o. female with significant past medical history of ESRD on HD MWF, a nd a nonhealing surgical wound from a L axillary AV graft placement in April,. The patie nt [facility]. She presented to [facility] ED from formerly [facility] wound care clinic with profuse bleeding of her L axilla after her wound packing was remov ed. Per report EBL was 250 cc of venous blood. She received 1 L crystalloid and 2 units PRBC prior to arrival at [facility] and remained hemodynamically stable. Patient was transferred to [facility] for ligation of the AVG [...] nephrology in AM no urgent need for REFERRAL MANAGER overnight. Renally dose medication and avoid nephrotoxins Monitor I/Os Monitor electrolytes. Hyperphosphatemia. Continue home dose of Renvela. ID: Patient with nonhealing AVG wound. Followed by [facility] wound care clinic. Patient [...] of all other procedures. BALJIT Guido 08/27/2019 Samira Mike RN - 08/26/2019 6:50 PM PDTHemodialysis catheter accessed for IV fluids on the venous (blue) port. Anesthesia stated to this RN that life flight had accessed port [place] [facility] This RN started PIV to right upper arm/AC area when patient brought to pacu. This info reported to SAND MIXER. 8: 33 PM PDTdocumented in this encounter Plan of Treatment Not [...] + +--------+ + + + | ARLENE WILLY, CG8, | Routin | 08/26/2019 | | [...] [facility] | | | | performed at [facility];[address] | | LABORATORY | | | | [address];[place] | | | | | | [address] | | | | + + + + + + + + | Specimen | + + | Blood | + + + + + + + | Performing | Address | City/State/Zipcode | Phone Number | | Organization | | | | + + + + + | [facility] | [address] | [place] [address] | [phone] | + + + + + Magnesium (08/28/2019 4:02 AM PDT) + + + + + + | Component | Value | Ref Range | Performed | Pathologist | | | | | At | Signature | + + + + + + | Magnesium | 2.5 (H)Comment: Testing | 1.7 - 2.4 mg/dL | [facility] | | | | performed at [facility];[address] | | LABORATORY | | | | [address];[place] | | | | | | [address] | | | | + + + + + + + + | Specimen | + + | Blood | + + + + + + + | Performing | Address | City/State/Zipcode | Phone Number | | Organization | | | | + + + + + | [facility] | [address] | [place] [address] | [phone] | + + + + + CBC [...] | | | Absolute | performed at [facility];[address] | K/uL | LABORATORY | | | | [address];[place], [place] | | | | | | [address] | | | | + + + + + + + + | Specimen | + + | Blood | + + + + + + + | Performing | Address | City/State/Zipcode | Phone Number | | Organization | | | | + + + + + | [facility] | [address] | [place] [address] | [phone] | + + + + + Basic [...] 8 (L)Comment: GFR <60: | >60 | [facility] | | | GFR | CHRONIC KIDNEY [...] | | | | | performed at [facility] | | | | | | [facility];[place], [place] | | | | | | [address] | | | | + + + + + + + + | Specimen | + + | Blood | + + + + + + + | Performing | Address | City/State/Zipcode | Phone Number | | Organization | | | | + + + + + | [facility] | [address] | [place] [address] | [phone] | + + + + + Hepatitis B Surface Ag (08/28/2019 4:02 AM PDT) + + + + + + | Component | Value | Ref Range | Performed | Pathologist | | | | | At | Signature | + + + + + + | Hepatitis B | NON REACTIVEComment: | NR | [facility] | | | Surface Ag | Testing performed at | | LABORATORY | | | | [address], [address] | | | | | | [place] | | | | | | [address] | | | | + + + + + + + + | Specimen | + + | Blood | + + + + + + + | Performing | Address | City/State/Zipcode | Phone Number | | Organization | | | | + + + + + | [facility] | [address] | [place] [address] | [phone] | + + + + + Potassium (08/27/2019 7:52 PM PDT) + + + + + + | Component | Value | Ref Range | Performed | Pathologist | | | | | At | Signature | + + + + + + | K | 3.8Comment: Testing | 3.5 - 4.9 | [facility] | | | | performed at [facility];[address] | mmol/L | LABORATORY | | | | [address];[place] | | | | | | [address] | | | | + + + + + + + + | Specimen | + + | Blood | + + + + + + + | Performing | Address | City/State/Zipcode | Phone Number | | Organization | | | | + + + + + | [facility] | [address] | [place] [address] | [phone] | + + + + + Hepatitis [...] | | | | TCL, [address] | | | | | | [place], [place] | | | | | | [address] | | | | + + + + + + + + | Specimen | + + | Blood - Entire left | | ankle (body | | structure) | + + + + + + + | Performing | Address | City/State/Zipcode | Phone Number | | Organization | | | | + + + + + | [facility] | [address] | [place] [address] | [phone] | + + + + + POC Glucose (08/27/2019 9:29 AM PDT) + + + + + + | Component | Value | Ref Range | Performed | Pathologist | | | | | At | Signature | + + + + + + | Glucose, | 81Comment: Testing | 65 - 99 mg/dL | [facility] | | | POC | performed at [facility];[address] | | LABORATORY | | | | [address];[place] | | | | | | [address] | | | | + + + + + + + + | Specimen | + + | | + + + + + + + | Performing | Address | City/State/Zipcode | Phone Number | | Organization | | | | + + + + + | [facility] | [address] | [place] [address] | [phone] | + + + + + Basic [...] LABORATORY | | | | RESULTS VERIFIEDMARSWAPNA Gomez | | | | | | ON 10RP AT 0831 BY CLARITA | | | | | |FELIPE Gomez ON 10RP AT 0831 BY CLARITA | | | | | | | [...] + | BUN/Creatin | 4 | | [facility] | | | ine Ratio | | | LABORATORY | | + + + + + + | Calcium | 8.5 | 8.5 - 10.5 | [facility] | | | | | mg/dL | LABORATORY | | + + + + + + | Estimated | 5 (L)Comment: GFR <60: | >60 | [facility] | | | GFR | CHRONIC KIDNEY [...] | | | | | performed at [facility] | | | | | | [facility];[place], [place] | | | | | | [address] | | | | + + + + + + + + | Specimen | + + | Blood | + + + + + + + | Performing | Address | City/State/Zipcode | Phone Number | | Organization | | | | + + + + + | [facility] | [address] | [place] [address] | [phone] | + + + + + Basic [...] 5 (L)Comment: GFR <60: | >60 | [facility] | | | GFR | CHRONIC KIDNEY [...] | | | | | performed at [facility];[address] | | | | | | [facility];[place], [place] | | | | | | [address] | | | | + + + + + + + + | Specimen | + + | | + + + + + + + | Performing | Address | City/State/Zipcode | Phone Number | | Organization | | | | + + + + + | [facility] | [address] | [place] [address] | [phone] | + + + + + Phosphorus (08/27/2019 4:14 AM PDT) + + + + + + | Component | Value | Ref Range | Performed | Pathologist | | | | | At | Signature | + + + + + + | Phosphorus | 5.7 (H)Comment: Testing | 2.3 - 4.8 mg/dL | [facility] | | | | performed at [facility];[address] | | LABORATORY | | | | [address];[place] | | | | | | [address] | | | | + + + + + + + + | Specimen | + + | Blood | + + + + + + + | Performing | Address | City/State/Zipcode | Phone Number | | Organization | | | | + + + + + | [facility] | [address] | [place] [address] | [phone] | + + + + + Magnesium (08/27/2019 4:14 AM PDT) + + + + + + | Component | Value | Ref Range | Performed | Pathologist | | | | | At | Signature | + + + + + + | Magnesium | 2.8 (H)Comment: Testing | 1.7 - 2.4 mg/dL | [facility] | | | | performed at [facility];[address] | | LABORATORY | | | | [address];[place] | | | | | | [address] | | | | + + + + + + + + | Specimen | + + | Blood | + + + + + + + | Performing | Address | City/State/Zipcode | Phone Number | | Organization | | | | + + + + + | [facility] | [address] | [place] [address] | [phone] | + + + + + CBC [...] | | | | | performed at [facility] | | | | | | [address];[place] | | | | | | [address] | | | | + + + + + + + + | Specimen | + + | Blood | + + + + + + + | Performing | Address | City/State/Zipcode | Phone Number | | Organization | | | | + + + + + | [facility] | [address] | [place] [address] | [phone] | + + + + + Culture, Blood (08/26/2019 9:47 PM PDT) + + + + + + | Component | Value | Ref Range | Performed | Pathologist | | | | | At | Signature | + + + + + + | Special | R ARM | | [facility] | | | Requests | | | LABORATORY | | + + + + + + | Special | Testing performed at | | [facility] | | | Requests | [address] | | LABORATORY | | | | [address];[place] [address] | | | | + + + + + + | RESULT | NO GROWTH 6 DAYS | | [facility] | | | | | | LABORATORY | | + + + + + + | RESULT | Testing performed at | | [facility] | | | | TCL, [address] | | LABORATORY | | | | [place] | | | | | | [address]Nmlojte: Testing | | | | | | performed at [facility], [address] | | | | | | [address] [place], [place] | | | | | | [address] | | | | + + + + + + + + | Specimen | + + | Blood - Peripheral | | blood specimen | | (specimen) | + + + + + + + | Performing | Address | City/State/Zipcode | Phone Number | | Organization | | | | + + + + + | [facility] | [address] | [place] [address] | [phone] | + + + + + Procalcitonin (08/26/2019 9:29 PM PDT) + + + + + + | Component | Value | Ref Range | Performed | Pathologist | | | | | At | Signature | + + + + + + | PROCALCITON | 0.80 (H)Comment: | <0.5 ng/mL | [facility] | | | IN | INTERPRETIVE | [...] | | | | | | at [facility];[address] [place] [address] | | | | | | [facility];[place] [address] | | | | + + + + + + + + | Specimen | + + | Blood | + + + + + + + | Performing | Address | City/State/Zipcode | Phone Number | | Organization | | | | + + + + + | [facility] | [address] | [place] [address] | [phone] | + + + + + Lactic Acid (08/26/2019 9:29 PM PDT) + + + + + + | Component | Value | Ref Range | Performed | Pathologist | | | | | At | Signature | + + + + + + | Lactate, | 1.8Comment: Testing | 0.4 - 2.0 | [facility] | | | Serum | performed at [facility];[address] | mmol/L | LABORATORY | | | | [address];[place], [place] | | | | | | [address] | | | | + + + + + + + + | Specimen | + + | Blood | + + + + + + + | Performing | Address | City/State/Zipcode | Phone Number | | Organization | | | | + + + + + | [facility] | [address] | [place] [address] | [phone] | + + + + + Culture, [...] | [facility] | | | Requests | [address] | | LABORATORY | | | | [address];[place] [address] | | | | + + + + + + | RESULT | NO GROWTH 6 DAYS | | [facility] | | | | | | LABORATORY | | + + + + + + | RESULT | Testing performed at | | [facility] | | | | TCL, [address] | | LABORATORY | | | | [place], [place] | | | | | | [address]Ptdlrwt: Testing | | | | | | performed at [facility], [address] | | | | | | [facility], [place], [place] | | | | | | [address] | | | | + + + + + + + + | Specimen | + + | Blood - Peripheral | | blood specimen | | (specimen) | + + + + + + + | Performing | Address | City/State/Zipcode | Phone Number | | Organization | | | | + + + + + | [facility] | [address] [facility] | [place] [address] | [phone] | + + + + + MRSA [...] [facility] | | | | performed at [facility];[address] | | LABORATORY | | | | [address];[place], [place] | | | | | | [address] | | | | + + + + + + + + | Specimen | + + | Tissue - Both | | anterior nares (body | | structure) | + + + + + + + | Performing | Address | City/State/Zipcode | Phone Number | | Organization | | | | + + + + + | [facility] | [address] | [place] [address] | [phone] | + + + + + Basic [...] 8.4 (L) | 8.5 - 10.5 | [facility] | | | | | mg/dL | LABORATORY | | + + + + + + | Estimated | 6 (L)Comment: GFR <60: | >60 | [facility] | | | GFR | CHRONIC KIDNEY [...] | | | | | performed at [facility] | | | | | | [facility];[place], [place] | | | | | | [address] | | | | + + + + + + + + | Specimen | + + | Blood | + + + + + + + | Performing | Address | City/State/Zipcode | Phone Number | | Organization | | | | + + + + + | [facility] | [address] | [place] [address] | [phone] | + + + + + Phosphorus (08/26/2019 8:31 PM PDT) + + + + + + | Component | Value | Ref Range | Performed | Pathologist | | | | | At | Signature | + + + + + + | Phosphorus | 6.9 (H)Comment: Testing | 2.3 - 4.8 mg/dL | [facility] | | | | performed at [facility];[address] | | LABORATORY | | | | [address];[place], [place] | | | | | | [address] | | | | + + + + + + + + | Specimen | + + | Blood | + + + + + + + | Performing | Address | City/State/Zipcode | Phone Number | | Organization | | | | + + + + + | [facility] | [address] | [place] [address] | [phone] | + + + + + Magnesium (08/26/2019 8:31 PM PDT) + + + + + + | Component | Value | Ref Range | Performed | Pathologist | | | | | At | Signature | + + + + + + | Magnesium | 2.6 (H)Comment: Testing | 1.7 - 2.4 mg/dL | [facility] | | | | performed at [facility] | | LABORATORY | | | | [facility];[place], [place] | | | | | | [address] | | | | + + + + + + + + | Specimen | + + | Blood | + + + + + + + | Performing | Address | City/State/Zipcode | Phone Number | | Organization | | | | + + + + + | [facility] | [address] | [place] [address] | [phone] | + + + + + CBC [...] LABORATORY | | | | performed at [facility] | | | | | | [facility];[place], [place] | | | | | | [address] | | | | + + + + + + + + | Specimen | + + | Blood | + + + + + + + | Performing | Address | City/State/Zipcode | Phone Number | | Organization | | | | + + + + + | [facility] | [address] | [place] [address] | [phone] | + + + + + POC [...] | | | POC | performed at [facility];[address] | | LABORATORY | | | | [address];[place] | | | | | | [address] | | | | + + + + + + + + | Specimen | + + | | + + + + + + + | Performing | Address | City/State/Zipcode | Phone Number | | Organization | | | | + + + + + | [facility] | [address] | [place] [address] | [phone] | + + + + + POC [...] 13.3Comment: Testing | 11.6 - 15.5 | [facility] | | | POC | performed at [facility];[address] | g/dL | LABORATORY | | | | [address];[place], [place] | | | | | | [address] | | | | + + + + + + + + | Specimen | + + | | + + + + + + + | Performing | Address | City/State/Zipcode | Phone Number | | Organization | | | | + + + + + | [facility] | [address] | [place] [address] | [phone] | + + + + + Echo [...] | | | | | Signed by: Daphney Paz Jade | | Sign Date/Time: 08/26/2019 [...] | | | POC | performed at [facility];[address] | g/dL | LABORATORY | | | | [address];[place] | | | | | | [address] | | | | + + + + + + + + | Specimen | + + | | + + + + + + + | Performing | Address | City/State/Zipcode | Phone Number | | Organization | | | | + + + + + | [facility] | [address] | [place] [address] | [phone] | + + + + + documented in this encounter Visit Diagnoses + + | Diagnosis | + + | End-stage renal disease (HCC) End stage renal disease | + + | Bleeding from dialysis shunt, initial encounter ([facility]) | + + | AV graft malfunction, [...] DAILY PRN, Constipation, | | | Starting [facility] 08/26/19 at 2010, If | | [...] | | | | | | | iapxef-nkv-zehor use of at least | | | [...] | Decreased Responsiveness, | | | Starting [facility] 08/27/19 at 0637 | | + +---+ | | | + +---+ | ondansetron (ZOFRAN) 2 mg/mL | | | injection Starting [facility] 08/26/19 | | | at 2006, [...]
--- OUTSIDE RECORDS SUMMARY | ~2020-04-05 | XMS | Encounter Summary ---
Demographics + + + | Address | [address] | | | [place] [address] | + + + | Home Phone | | + + + | Preferred Language | Unknown | + + + | Marital Status | | + + + | Pentecostal Affiliation | Unknown | + + + | Race | Unknown | + + + | Ethnic Group | Unknown | + + + Author + + + | Author | [facility] | | | and [place] | + + + | Organization | [facility] | | | and [place] | + + + | Address | Unknown | + + + | Phone | Unavailable | + + + Support + + + + + | Name | Relationship | Address | Phone | + + + + + | Lyubov Smalls | ECON | [place], [place] | | | | | [address] | | + + + + + | Lydia Palm | ECON | [place], [place] | | | | | [address] | | + + + + + | melinda METZ" | ECON | [place], [place] | | | [place]ba | | [address] | | + + + + + | Jose C Oconnor | ECON | [place] | | | | | [place] | | | | | [address] | | + + + + + Care Team Providers + +------+ + | Care Time Study Engineer Name | Role | Phone | + [...] | | | | | | | ([facility]) Wound | | | | | | [...] + + | 07/08/ | Surgery | [facility] | Qasim Pederson MD | LEFT AXILLA WOUND | | 2019 | | [facility] | [address] | DEBRIDEMENT, WASHOUT | | | | OPERATING ROOM [address] | [place], [place] | AND POSSIBLE WOUND | | | | [address] | [address] | VAC PLACEMENT | | | | [place], [place] | | | | | | [address] | | | | | | [phone] | | | +--------+---------+ + + + [...] chamber of the vacuum Date Last Reviewed: 12/11/[id number] [employer]. [address] [place] [id number]. All righ ts reserved. This information is [...] Anexsia, Lorcet, Lorcet HD, Lorcet Plus, Lortab, [place], Verdrocet, Vicodin, Vi codin ES, Vicodin HP, [...] information carefully each time. Talk to your mechanical specialist regarding the use of this medicine in children. Special care may be needed. What side effects may I notice from receiving this medicine? Side effects that you should report to your doctor or health hospice care sales consultant as soon as p ossible: allergic reactions [...] attention (report to your doctor or health hospice care sales consultant if they continue or are bothersome): constipation [...] to an official disposal site. Contact the [facility] at [phone] or your [facility] to find a site. If you [...] this medicine? Tell your doctor or health hospice care sales consultant if your pain does not go away, [...] behind the other ear. Talk to your mechanical specialist regarding the use of this medicine in children. Special care may be needed. What side effects may I notice from receiving this medicine? Side effects that you should report to your doctor or health hospice care sales consultant as soon as p ossible: agitation, nervousness, confusion blurred vision and other eye problems dizziness, drowsiness eye pain or redness in the whites of the eye hallucinations pain or difficulty passing urine skin rash, itching vomiting Side effects that usually do not require medical attention (report to your doctor or health hospice care sales consultant if they continue or are bothersome): headache [...] | | | | 11:32 AM | ([facility]) Wound | | | | | PDT [...] [facility] | | | | performed at [facility];[address] | | LABORATORY | | | | [address];[place], [place] | | | | | | [address] | | | | + + + + + + + + | Specimen | + + | Blood | + + + + + + + | Performing | Address | City/State/Zipcode | Phone Number | | Organization | | | | + + + + + | [facility] | [address] | [place] [address] | [phone] | + + + + + documented [...] | | | | | | longer, xthxbk-unb-lcgma use of | | | | | [...] | | | | | | | yjdshy-kaj-sztpq use of at least | | | [...]
--- OUTSIDE RECORDS SUMMARY | ~2020-04-05 | XMS | Encounter Summary ---
Demographics + + + | Address | [address] | | | [place] [address] | + + + | Home Phone | | + + + | Preferred Language | Unknown | + + + | Marital Status | | + + + | Gnosticism Affiliation | Unknown | + + + | Race | Unknown | + + + | Ethnic Group | Unknown | + + + Author + + + | Author | [facility] | | | and [place] | + + + | Organization | [facility] | | | and [place] | + + + | Address | Unknown | + + + | Phone | Unavailable | + + + Support + + + + + | Name | Relationship | Address | Phone | + + + + + | Lyubov Smalls | ECON | [place], [place] | | | | | [address] | | + + + + + | Lydia Palm | ECON | [place], [place] | | | | | [address] | | + + + + + | melinda METZ" | ECON | [place], [place] | | | [place] | | [address] | | + + + + + | Jose C Oconnor | ECON | [place] | | | | | [place] | | | | | [address] | | + + + + + Care Team Providers + +------+ + | Care Front End Ui Developer Name | Role | Phone | [...] | | | | | | (FORMERLY [facility]) | | | | | | | Procedures | | | | | | | NM | | | | | | | ANASTOMOSIS, | | | | | | | AV,ANY SITE | | | | | | | AV GRAFT | | | | | | | CREATION | | | +--------+--------+ + + + + Encounter Details +--------+ + + + + | Date | Type | Department | Care Team | Description | +--------+ + + + + | 01/10/ | Anesthesia | [facility] | Nat Smalls MD | | | 2020 | [facility] | [address] | | | | | OPER[address] | [place] [address] | | | | | [facility] | [phone] | | | | | [place], [place] | | | | | | [address] | | | | | | [phone] | | | +--------+ + + + + Anesthesia Record + + + + + | Procedure Name | Responsible | Anesthesia Start | Anesthesia Stop Time | | | Anesthesiologist | Time | | + + + + + | AV GRAFT CREATION | Nat Smalls MD | 01/11/20 1015 | 01/11/20 1147 | | (Right ) | | | | + + + + + +----+---+ + + | Da | T | Event | Comment | | te | i | | | | | m | | | | | e | | | +----+---+ + + | 03 | 1 | | | | /0 | 0 | | | | 3/ | 0 | | | | 20 | 6 | | | | 20 | | | | +----+---+ + + | | 1 | An Start | Reassessment prior to anesthesia induction/procedure. | | | 0 | | | | | 1 | | | | | 5 | | | +----+---+ + + | | 1 | Antibiotic | | | | 0 | Given | | | | 1 | | | | | 7 | | | +----+---+ + + | | 1 | An | | | | 0 | Induction | | | | 2 | | | | | 0 | | | +----+---+ + + | | 1 | An | | | | 0 | Intubation | | | | 2 | | | | | 0 | | | +----+---+ + + | | 1 | Anesthesia | | | | 0 | Ready | | | | 2 | | | | | 4 | | | +----+---+ + + | | 1 | Clarissa | | | | 0 | 43-degrees | | | | 3 | | | | | 2 | | | +----+---+ + + | | 1 | First | | | | 0 | Inc/Proc St | | | | 3 | | | | | 5 | | | +----+---+ + + | | 1 | Extubation/ | | | | 1 | Airway LDA | | | | 3 | Removal | | | | 7 | | | +----+---+ + + | | 1 | an stop | | | | 1 | data | | | | 4 | | | | | 1 | | | +----+---+ + + | | 1 | An Stop | Patient handed off to recovery nurse. | | | 4 | | | | | 7 | | | +----+---+ + + +------+ | Meds | +------+ + + + | Name | Total | + + + | fentaNYL | 200 mcg | + + + | lidocaine 2% | 40 mg | + + + | propofol | 200 mg | + + + | ondansetron | 4 mg | + + + | dexamethasone | 4 mg | + + + | phenylephrine | 100 mcg | + + + | ceFAZolin in dextrose (ANCEF) | 2 g | | IVPB 2 g | | + + + | heparin | 5,000 Units | + + + | sodium chloride 0.9% (NS) | 200 mL | | infusion | | + + + + + | Name | + + | N2O Flow Rate (L/Min) | + + | O2 Flow Rate (L/Min) | + + | Insp O2 | + + | Exp N2O | + + | Exp SEV | + + | Air Flow Rate (L/Min) | + + + + | No blood administrations on file. | + + +--------+ + + + | Type | Details | Placement | Removal | +--------+ + + + | Wound | Y; Incision; Left; mid axillary | 09/06/19 1227 by | | +--------+ + + + | Hemodi | 07/08/19 (Admitted with this); | 07/08/191413 by | | | alysis | 1414; yes; internal jugular vein, | Alyce Herron RN | | | | right | | | | Cathet | | | | | er | | | | +--------+ + + + | Wound | 08/26/19; 1927; Incision; Left; | 08/26/191927 by | | | | arm | Marlene Ledezma RN | | +--------+ + + + | Wound | 08/26/19; 1927; Incision; Right; | 08/26/191927 by | | | | chest | Marlene Ledezma RN | | +--------+ + + + | Hemodi | 11/05/19; 142 (Catheter | 11/05/19 1420 by | | | alysis | replacement) | Yesenia Rodriguez RN | | | | | | | | Gal[place] | | | | | er | | | | +--------+ + + + | Wound | 12/16/19; 1437; Incision; Right; | 12/16/19 1437 by | | | | arm | Ama Larson RN | | +--------+ + + + | Wound | 01/11/20; Incision; Right; upper; | 01/11/20 0000 by | | | | arm; device implantation (AV | Latasha More RN | | | | fistula) | | | +--------+ + + + | Hemodi | 12/16/19; 1518; fistula, | 12/16/19 1518 by | 01/11/20 1333 by | | alysis | immature; upper arm, right; | Dorothy Polanco, | Merary Springer RN | | | hemodialysis; 01/11/20; 1333 | RN | | +--------+ + + + | Periph | 01/11/20; 0937; Left; Hand; | 01/11/20 0937 by | 01/11/20 1354 by | | eral | [id number] catheter system; | Alyce Morales RN | Adia Granados RN | | IV | 20 gauge; Chemistry, Other (see | | | | | comment) (serum HCG); | | | | | catheter/device intact; expected | | | | | removal post discharge; 01/11/20; | | | | | 1354 | | | +--------+ + + + | Airway | Placement Date: 01/11/20; | 01/11/20 1020 by | 01/11/20 1137 by | | | Placement Time: 1020 (created via | Nat Smalls MD | Nat Smalls MD | | | procedure documentation); Mask | | | | | Ventilation: N/A; Attempts: 1; | | | | | Airway Type: laryngeal mask; | | | | | Size: 4; Trauma: none; Placement | | | | | Check: exhaled CO2 detection | | | | | device, bilateral chest rise; | | | | | Removal Date: 01/11/20; Removal | | | | | Time: 1137 | | | +--------+ + + + documented in this encounter Social History + +-------+ +--------+ + | [...] | ANE AIRWAY NOTE | Routin | 01/11/2020 | | Results for this | | | e | 10:33 AM | | procedure are in the | | | | PST | | results section. | + +--------+ + + + documented in this encounter Results Anesthesia Airway Note (01/11/2020 10:33 AM PST) + + + | Narrative | Performed At | + + + | Nat Smalls MD 01/11/2020 10:37 AM Anesthesia Airway | | | Placement 01/11/2020 10:20 AM Preprocedure check: patient | | | identified, airway equipment checked, patient reassessment prior to | | | induction, airway assessed, oxygen and suction Mask ventilation: | | | N/A Attempts: 1 Airway type: laryngeal mask Size: 4 Cuffed: | | | cuffed Route, reference point: center of mouth Tube secured with: | | | adhesive tape Trauma: none Tube placement verification: bilateral | | | chest rise and carbon dioxide detection Performing provider: Nat | | | Tobi Smalls MD Authorizing provider: Nat Smalls MD Please | | | see intraoperative grid for any additional medication documentation. | | + + + documented in this encounter Visit Diagnoses Not on filedocumented in this encounter Administered Medications + +--------+ +------+------+------+ | Medication Order | MAR | Action | Dose | Rate | Site | | | Action | Date | | | | + +--------+ +------+------+------+ | ceFAZolin in dextrose (ANCEF) | Given | 01/11/20 | 2 g | | | | IVPB 2 g 2 g, Intravenous, | | 20 10:17 | | | | | Administer over 30 Minutes, Prior | | AM PST | | | | | to Incision, Starting 01/11/20 | | | | | | | at 0945, For 1 dose, Keep in | | | | | | | refrigerator., Pre-op, | | | | | | | Indications: Surgical Prophylaxis | | | | | | + +--------+ +------+------+------+ +---+---+ | | | +---+---+ + +-------+ +------+---+---+ | dexamethasone (DECADRON) 4 | Given | 01/11/20 | 4 mg | | | | mg/mL injection Intravenous, | | 20 10:20 | | | | | PRN, Starting 01/11/20 at 1020, | | AM PST | | | | | Anesthesia Intra-op | | | | | | + +-------+ +------+---+---+ +---+---+ | | | +---+---+ + +-------+ +--------+---+---+ | fentaNYL (PF) injection | Given | 01/11/20 | 50 mcg | | | | Intravenous, PRN, Starting Fri | | 20 11:15 | | | | | 01/11/20 at 1037, Anesthesia | | AM PST | | | | | Intra-op | | | | | | + +-------+ +--------+---+---+ +-------+ +--------+---+---+ | Given | 01/11/20 | 50 mcg | | | | | 20 10:37 | | | | | | AM PST | | | | +-------+ +--------+---+---+ | Given | 01/11/20 | 25 mcg | | | | | 20 10:26 | | | | | | AM PST | | | | +-------+ +--------+---+---+ +---+---+ | | | +---+---+ + +-------+ +--------+---+---+ | heparin 1,000 units/mL | Given | 01/11/20 | 5,000 | | | | injection Intravenous, PRN, | | 20 10:50 | Units | | | | Starting 01/11/20 at 1050, | | AM PST | | | | | Anesthesia Intra-op | | | | | | + +-------+ +--------+---+---+ +---+---+ | | | +---+---+ + +-------+ +-------+---+---+ | lidocaine (PF) 2% injection | Given | 01/11/20 | 40 mg | | | | Intravenous, PRN, Starting Tue | | 20 10:20 | | | | | 01/11/20 at 1020, Anesthesia | | AM PST | | | | | Intra-op | | | | | | + +-------+ +-------+---+---+ +---+---+ | | | +---+---+ + +-------+ +------+---+---+ | ondansetron (ZOFRAN) injection | Given | 01/11/20 | 4 mg | | | | Intravenous, PRN, Starting Tue | | 20 10:20 | | | | | 01/11/20 at 1020, Anesthesia | | AM PST | | | | | Intra-op | | | | | | + +-------+ +------+---+---+ +---+---+ | | | +---+---+ + +-------+ +---------+---+---+ | phenylephrine (PONCHO-SYNEPHRINE, | Given | 01/11/20 | 100 mcg | | | | VAZCULEP) 10 mg per mL injection | | 20 10:29 | | | | | Intravenous, PRN, Starting Tue | | AM PST | | | | | 01/11/20 at 1029, Anesthesia | | | | | | | Intra-op | | | | | | + +-------+ +---------+---+---+ +---+---+ | | | +---+---+ + +-------+ +-------+---+---+ | propofol (DIPRIVAN) injection | Given | 01/11/20 | 20 mg | | | | Intravenous, PRN, Starting Tue | | 20 10:22 | | | | | 01/11/20 at 1020, Anesthesia | | AM PST | | | | | Intra-op | | | | | | + +-------+ +-------+---+---+ +-------+ +--------+---+---+ | Given | 01/11/20 | 180 mg | | | | | 20 10:20 | | | | | | AM PST | | | | +-------+ +--------+---+---+ +---+---+ | | | +---+---+ + +---------+ +---+---+---+ | sodium chloride 0.9% (NS) | New Bag | 01/11/20 | | | | | infusion at 30 mL/hr, | | 20 10:15 | | | | | Intravenous, CONTINUOUS, Starting | | AM PST | | | | | 01/11/20 at 0945, | | | | | | | Recovery/Phase I | | | | | | + +---------+ +---+---+---+ +---------+ +---+ +---+ | New Bag | 01/11/20 | | 30 mL/hr | | | | 20 9:46 | | | | | | AM PST | | | | +---------+ +---+ +---+ +---+---+ | | | +---+---+ documented in this encounter
--- OUTSIDE RECORDS SUMMARY | ~2020-04-05 | XMS | Encounter Summary ---
Demographics + + + | Address | [address] | | | [place] [address] | + + + | Home Phone | | + + + | Preferred Language | Unknown | + + + | Marital Status | | + + + | Baptist Affiliation | Unknown | + + + | Race | Unknown | + + + | Ethnic Group | Unknown | + + + Author + + + | Author | [facility] | | | and [place] | + + + | Organization | [facility] | | | and [place] | + + + | Address | Unknown | + + + | Phone | Unavailable | + + + Support + + + + + | Name | Relationship | Address | Phone | + + + + + | Lyubov Smalls | ECON | [place], [place] | | | | | [address] | | + + + + + | Lydia Palm | ECON | [place], [place] | | | | | [address] | | + + + + + | melinda METZ" | ECON | [place], [place] | | | [place] | | [address] | | + + + + + | Jose C Oconnor | ECON | [place] | | | | | [place] | | | | | [address] | | + + + + + Care Team Providers + +------+ + | Care Medical Insurance Claims Processor Name | Role | Phone | + [...] + + | 09/28/ | Office | [facility] | Man Jeronimo, | Infection of | | 2019 | Visit | VASCULAR SURGERY | PA-C [address] | arteriovenous | | | | [address] | [address] [place], | dialysis fistula, | | | | [place], [place] | [place] [address] | subsequent encounter | | | | [address] | [phone] | (Primary Dx) | | | | [phone] | | | +--------+---------+ + + + [...] Man Jeronimo PA-C - 09/28/2019 1:00 PM [facility] [address] [place] [address] Office: [phone] DATE OF VISIT: 09/28/2019 PATIENT NAME: Ramona [...] history of HTN and ESRDwho presented to [facility] ED with fever and chills [...] 08/26 patient was emerg ently transferred to [facility] for severe bleeding from left axilla. She [...] CV: No peripheral edema, rate regular SKIN: [place], warm, dry without rash/lesion MS: ROM not limited, no digital cyanosis, normal gait NEURO: Conversant, A&O times 3 PSYCH: appropriate affect, speech and tone, judgement and insight intact Vascular:Wound vac holding suction in left axilla. Wound vac removed and wound shows go od granulation tissue, 1.5 cm x 1.5 cm x 0.2 cm. Distal wound is nearly healed. [place] in p lace and were removed. Distal [...]
--- OUTSIDE RECORDS SUMMARY | ~2020-04-05 | XMS | Encounter Summary ---
Demographics + + + | Address | [address] | | | [place] [address] | + + + | Home Phone | | + + + | Preferred Language | Unknown | + + + | Marital Status | | + + + | Bahai Affiliation | Unknown | + + + | Race | Unknown | + + + | Ethnic Group | Unknown | + + + Author + + + | Author | [facility] | | | and [place] | + + + | Organization | [facility] | | | and [place] | + + + | Address | Unknown | + + + | Phone | Unavailable | + + + Support + + + + + | Name | Relationship | Address | Phone | + + + + + | Lyubov Smalls | ECON | [place], [place] | | | | | [address] | | + + + + + | Lydia Palm | ECON | [place], [place] | | | | | [address] | | + + + + + | melinda METZ" | ECON | [place], [place] | | | [place] | | [address] | | + + + + + | Jose C Oconnor | ECON | [place] | | | | | [place] | | | | | [address] | | + + + + + Care Team Providers + +------+ + | Care Technical Writing Lead/Mgr Name | Role | Phone | + +------+ + | No, Physician | PCP | Unavailable | + +------+ + Reason for Visit +--------+ + | Reason | Comments | +--------+ + | Other | Would Vac Questions | +--------+ + Encounter Details +--------+ + + + + | Date | Type | Department | Care Team | Description | +--------+ + + + + | 09/13/ | Telephone | [facility] | Qasim Pederson MD | Other (Would Vac | | 2019 | | VASCULAR SURGERY | [address] | Questions) | | | | [address] | [address] | | | | | [place], [place] | [address] | | | | | [address] | | | | | | [phone] | | | +--------+ + + + [...]
--- OUTSIDE RECORDS SUMMARY | ~2020-04-05 | XMS | Encounter Summary ---
Demographics + + + | Address | [address] | | | [place] [address] | + + + | Home Phone [...] + | Author | [facility] | | | and [place] | + + + | Organization | [facility] | | | and [place] | + + + | Address | Unknown | + + + | Phone | Unavailable | + + + Support + + + + + | Name | Relationship | Address | Phone | + + + + + | Lyubov Smalls | ECON | [place], [place] | | | | | [address] | | + + + + + | Lydia Palm | ECON | [place], [place] | | | | | [address] | | + + + + + | melinda METZ" | ECON | [place], [place] | | | [place]ba | | [address] | | + + + + + | Jose C Oconnor | ECON | [place] | | | | | [place] | | | | | [address] | | + + + + + Care Team Providers + +------+ + | Care Certified Medication Aide Name | Role | Phone | + +------+ + | Unknown, Physician | PCP | | + +------+ + Encounter Details +--------+ + + + + | Date | Type | Department | Care Team | Description | +--------+ + + + + | 12/07/ | Preadmit | [facility] | Qasim Pederson MD | | | 2019 | Visit | [facility]ENTER [facility] | [address] | | | | | CLINIC [address] | [place], [place] | | | | | [place], [place] | [address] | | | | | [address] | | | | | | [phone] | | | +--------+ + + + [...] + + + | Blood Pressure | 129/63 | 12/07/2019 2:39 PM | | | | | PST | | + + + + + | Pulse | 76 | 12/07/2019 2:39 PM | | | | | PST | | + + + + + | Temperature | - | - | | + + + + + | Respiratory Rate | - | - | | + + + + + | Oxygen Saturation | 99% | 12/07/2019 2:39 PM | | | | | PST | | + + + + + | Inhaled Oxygen | - | - | | | Concentration | | | | + + + + + | Weight | 88 kg (194 lb 0.1 | 12/07/2019 2:39 PM | | | | oz) | PST | | + + + + + | Height | 157.5 cm (5' 2") | 12/07/2019 2:39 PM | | | | | PST | | + + + + + | Body Mass Index | 35.48 | 12/07/2019 2:39 PM | | | | | PST [...] + + documented as of this encounter Patient Instructions Instructions Ama Nguyen RN - 12/07/2019Formatting of this note might be different fr om the original. AV DIALYSIS SHUNT/FISTULA DISCHARGE INSTRUCTIONS Your physician has placed/revised an arteriovenous (AV) shunt/fistula in your arm for your dialysis treatments. It is very important to protect your arm to prevent cutting off the roma w of blood in your shunt. Dressing Care: ? Keep the dressings clean and dry for 48 hours (2 days). Do not remove the dressing durin g that time. ? After 48 hours (2 days) remove the outer portion of the dressing, leaving the steri-strip s in place. ? Leave the steri-strips that cover the skin incision in place for 14 days. ? If your dressings get wet, remove the dressing and replace with sterile gauze. If you do not have any dressing supplies, call your physician s office. ? Do not use dressings that place pressure on the shunt or completely encircle your arm or wrist. Shunt Care: ? DO NOT let anyone take your blood pressure, place a tourniquet, start an IV or draw blood from the arm with the shunt. ? DO NOT wear jewelry or tight sleeves on the arm with the shunt. ? DO NOT sleep on your shunt or carry anything hanging over the arm that has the shunt. ? DO NOT let anyone access the shunt except the Dialysis Center nurse or physician. Notify your physician if you notice the following: ? Loss of the thrill over the shunt ? Loss of pulsation over the shunt ? Pain or hardness in the area of the shunt ? Redness or swelling in the arm or drainage from the incision If there is an injury to the shunt and it begins to bleed, keep continuous pressure to the site and seek emergency care immediately. Use the thumb on the opposite hand to hold pressur e until help is obtained. If you have any questions or concerns regarding your dialysis shunt, please contact your ysician at [phone]. Outpatient Medications Marked as Taking for the 12/07/19 encounter (Preadmit Visit) with [facility] RO[facility] 2 Medication Sig Instructions omeprazole (PRILOSEC) 20 mg capsule Take 20 mg by mouth every morning (before breakfast ). TAKE day of procedure promethazine (PHENERGAN) 25 mg tablet Take 25 mg by mouth every 6 (six) hours as needed for Nausea. DO NOT TAKE day of procedure senna (SENOKOT) 8.6 mg tablet Take 1 tablet by mouth Twice daily as needed for Constip ation. DO NOT TAKE day of procedure sevelamer carbonate (RENVELA) 800 mg tablet Take 2 tablets by mouth 2 times daily (with breakfast & lunch). DO NOT TAKE day of procedure documented in this encounter Plan of Treatment Not on filedocumented as of this encounter Procedures + +--------+ + + + | Procedure Name | Priori | Date/Time | Associated Diagnosis | Comments | | | ty | | | | + +--------+ + + + | CBC WITH | JONG | 12/07/2019 | | Results for this | | DIFFERENTIAL | | 2:59 PM | | procedure are in the | | | | PST | | results section. | + +--------+ + + + | BASIC METABOLIC | JONG | 12/07/2019 | | Results for this | | PANEL | | 2:59 PM | | procedure are in the | | | | PST | | results section. | + +--------+ + + + documented in this encounter Results CBC with Differential (12/07/2019 2:59 PM PST) + + + + + + | Component | Value | Ref Range | Performed | Pathologist | | | | | At | Signature | + + + + + + | WBC | 8.69 | 3.80 - 11.00 | [facility] | | | | | K/uL | LABORATORY | | + + + + + + | RBC | 4.84 | 3.70 - 5.10 | [facility] | | | | | M/uL | LABORATORY | | + + + + + + | Hemoglobin | 13.4 | 11.3 - 15.5 | [facility] | | | | | g/dL | LABORATORY | | + + + + + + | Hematocrit | 40.2 | 34.0 - 46.0 % | [facility] | | | | | | LABORATORY | | + + + + + + | MCV | 83.0 | 80.0 - 100.0 fl | [facility] | | | | | | LABORATORY | | + + + + + + | MCH | 27.8 | 27.0 - 34.0 pg | [facility] | | | | | | LABORATORY | | + + + + + + | MCHC | 33.5 | 32.0 - 35.5 | [facility] | | | | | g/dL | LABORATORY | | + + + + + + | RDW-SD | 49.4 | 37 - 53 fl | [facility] | | | | | | LABORATORY | | + + + + + + | Platelet | 286 | 150 - 400 K/uL | [facility] | | | Count | | | LABORATORY | | + + + + + + | MPV | 8.2 | fl | [facility] | | | | | | LABORATORY | | + + + + + + | Diff Type | AUTOMATED | | [facility] | | | | | | LABORATORY | | + + + + + + | % | 74.40 | % | [facility] | | | Neutrophils | | | LABORATORY | | + + + + + + | % | 17.68 | % | [facility] | | | Lymphocytes | | | LABORATORY | | + + + + + + | Monocyte % | 5.71 | % | [facility] | | | | | | LABORATORY | | + + + + + + | Eosinophils | 1.52 | % | [facility] | | | % | | | LABORATORY | | + + + + + + | Basophils % | 0.69 | % | [facility] | | | | | | LABORATORY | | + + + + + + | Neutrophils | 6.47 | 1.90 - 7.40 | [facility] | | | , Absolute | | K/uL | LABORATORY | | + + + + + + | Absolute | 1.54 | 1.00 - 3.90 | [facility] | | | Lymphocytes | | K/uL | LABORATORY | | + + + + + + | Absolute | 0.50 | 0.00 - 0.80 | [facility] | | | Monocytes | | K/uL | LABORATORY | | + + + + + + | Eosinophils | 0.13 | 0.00 - 0.50 | [facility] | | | , Absolute | | K/uL | LABORATORY | | + + + + + + | Basophils, | 0.06Comment: Testing | 0.00 - 0.10 | [facility] | | | Absolute | performed at [facility] | LABORATORY | | | | [address];[place], [place] | | | | | | [address] | | | | + + + + + + + + | Specimen | + + | Blood | + + + + + + + | Performing | Address | City/State/Zipcode | Phone Number | | Organization | | | | + + + + + | [facility] | [address] | [place] [address] | [phone] | + + + + + Basic Metabolic Panel (12/07/2019 2:59 PM PST) + + + + + + | Component | Value | Ref Range | Performed | Pathologist | | | | | At | Signature | + + + + + + | Na | 137 | 135 - 145 | [facility] | | | | | mmol/L | LABORATORY | | + + + + + + | K | 5.5 (H) | 3.5 - 4.9 | [facility] | | | | | mmol/L | LABORATORY | | + + + + + + | Cl | 97 (L) | 99 - 109 mmol/L | [facility] | | | | | | LABORATORY | | + + + + + + | CO2 | 27 | 23 - 32 mmol/L | [facility] | | | | | | LABORATORY | | + + + + + + | Anion Gap | 19 | 5 - 20 mmol/L | [facility] | | | | | | LABORATORY | | + + + + + + | Glucose | 100 (H) | 65 - 99 mg/dL | [facility] | | | | | | LABORATORY | | + + + + + + | BUN | 23 | 8 - 25 mg/dL | [facility] | | | | | | LABORATORY | | + + + + + + | Creatinine | 8.43 (H) | 0.50 - 1.00 | [facility] | | | | | mg/dL | LABORATORY | | + + + + + + | BUN/Creatin | 3 | | [facility] | | | ine Ratio | | | LABORATORY | | + + + + + + | Calcium | 9.9 | 8.5 - 10.5 | [facility] | | | | | mg/dL | LABORATORY | | + + + + + + | Estimated | 5 (L)Comment: GFR <60: | >60 | [facility] | | | GFR | CHRONIC KIDNEY [...] | performed at [facility] | | | | | | [facility];[place], [place] | | | | | | [address] | | | | + + + + + + + + | Specimen | + + | Blood | + + + + + + + | Performing | Address | City/State/Zipcode | Phone Number | | Organization | | | | + + + + + | [facility] | [address] | [place] [address] | [phone] | + + + + + documented in this encounter Visit Diagnoses Not on filedocumented in this encounter
--- OUTSIDE RECORDS SUMMARY | ~2020-04-05 | XMS | Encounter Summary ---
Demographics + + + | Address | [address] | | | [place] [address] | + + + | Home Phone | | + + + | Preferred Language | Unknown | + + + | Marital Status | | + + + | Mu-Ism Affiliation | Unknown | + + + [...] [place], [place] | | | | | [address] | | + + + + + | Lydia Palm | ECON | [place], [place] | | | | | [address] | | + + + + + | melinda METZ" | ECON | [place], [place] | | | reba | | [address] | | + + + + + | Jose C Oconnor | ECON | [place] | | | | | [place] | | | | | [address] | | + + + + + Care Team Providers + +------+ + | Care Commercial Loan Collection Officer Name | Role | Phone | + [...] | | | | | | | ([facility]) | | | | | | | Procedures | | | | | | | ID | | | | | | | [...] + + + + | 01/10/ | Hospital | [facility] | Mundo Ramos MD | | | 2020 | Encounter | [facility] | [address] | | | | | [address] | [place], [place] | | | | | [address] | [address] | | | | | [place], [place] | [phone] | | | | | [address] | | | | | | [phone] | | | +--------+ + + + [...] + + + | Blood Pressure | 101/55 | 01/11/2020 1:30 PM | | | | | PST | | + + + + + | Pulse | 70 | 01/11/2020 1:30 PM | | | | | PST | | + + + + + | Temperature | 36.6 C (97.8 F) | 01/11/2020 12:45 PM | | | | | PST | | + + + + + | Respiratory Rate | 12 | 01/11/2020 12:45 PM | | | | | PST | | + + + + + | Oxygen Saturation | 94% | 01/11/2020 1:30 PM | | | | | PST | | + + + + + | Inhaled Oxygen | - | - | | | Concentration | | | | + + + + + | Weight | 89.8 kg (197 lb 15.6 | 01/11/2020 9:36 AM | | | | oz) | PST | | + + + + + | Height | 157.5 cm (5' 2") | 01/11/2020 9:36 AM | | | | | PST | | + + + + + | Body Mass Index | 36.21 | 01/11/2020 9:36 AM | | | | | PST | [...] + documented as of this encounter Discharge Instructions Instructions Latasha More RN - 01/11/2020Formatting of this note might be different fr om the original. [facility] AV DIALYSIS SHUNT/FISTULA DISCHARGE INSTRUCTIONS Your physician has placed/revised an arteriovenous (AV) shunt/fistula in your arm for your dialysis treatments. It is very important to protect your arm to prevent cutting off the roma w of blood in your shunt. Dressing Care: Keep the dressings clean and dry. Do not remove the dressing unless it gets wet. Keep d ressing on for one week and then remove and dispose. If your dressings get wet, remove the dressing and replace with sterile gauze. If you do not have any dressing supplies, call your physician s office. Do not use dressings that place pressure on the shunt or completely encircle your arm or wrist. Shunt Care: DO NOT let anyone take your blood pressure, place a tourniquet, start an IV or draw bloo d from the arm with the shunt. DO NOT wear jewelry or tight sleeves on the arm with the shunt. DO NOT sleep on your shunt or carry anything hanging over the arm that has the shunt. DO NOT let anyone access the shunt except the Dialysis Center nurse or physician. Notify your physician if you notice the following: Loss of the thrill over the shunt Loss of pulsation over the shunt Pain or hardness in the area of the shunt Redness or swelling in the arm or [...] regarding your dialysis shunt, please contact your ysician. Incision Care Remember: Follow-up visits allow your healthcare provider to make sure your incision is hea ling well. Be sure to keep your appointments. Stitches (sutures),surgical nate, special strips of surgical tape, or surgical skin gl ue may be used to close incisions. They also help stop bleeding and speed healing. To help y our incision heal, follow the tips on this handout. Home care Tips for home care include the following: Always wash your hands before and after touching your incision. Keep your incision clean and dry. Avoid doing things that could cause dirt or sweat to get on your incision. Don t pick at scabs. They help protect the wound. Keep your incision out of water. Take a sponge bath to avoid getting your incision wet, unless your healthcare provider t ells you otherwise. Ask your provider when can you take a shower or bathe. Ask your provider about the best way to keep your incision dry when bathing or showering . Pat stitches dry if they get wet. Don t rub. Leave the bandage (dressing) in place until you are told to remove it or change it. Boucher ge it only as directed, using clean hands. After the first 12 hours, change your dressing every 24 hours, or as directed by [facility]. Change your dressing if it gets wet or soiled. Care for specific closures Follow these guidelines unless yourhealthcare provider tells you otherwise: Stitches or nate. Once you no longer need to keep these dry, clean the wound daily. F irst remove the bandage using clean hands. Then wash the area gently with soap and warm wate r. Use a wet cotton swab to loosen and remove any blood or crust that forms. After cleaning, put a thin layer of antibiotic ointment on. Then put on a new bandage. Skin glue. Don t put liquid, ointment, or cream on your wound while the glue is in wilder ce.Avoid activities that cause heavy sweating. Protect the wound from sunlight. Do not scr atch, rub, or pick at the glue. Do not put tape directly over the glue.The glue should pee l off within 5 to 10 days. Surgical tape. Keep the area dry. If it gets wet, blot the area dry with a clean towel. Surgical tape usually falls off within 7 to 10 days. If it has not fallen off after 10 days, contact your healthcare provider before taking it off yourself. If you are told to remove t he tape,put mineral oil or petroleum jelly on a cotton ball. Gently rub the tape until it is removed. Changing your dressing Leave the dressing (bandage) in place until you are told to remove it or change it. Follow the instructions below unless told otherwise by your healthcare provider: Always wash your hands before changing your dressing. After the first48 hours, the incision wound usually will have closed. At this point, l eave the incision uncovered and open to the air.If the incision has not closed keep it cov ered. Cover your incision only if your clothing is rubbing it or causingirritation. Change your dressing if it gets wet or soiled. Follow-up care Follow up with your healthcare provider to ask how long sutures or nate should be left i n place. Be sure to return for stitch or staple removal as directed. If dissolving stitches were used in your mouth, these will not need to be removed. They should fall out or dissolve on their own. If tape closures were used, remove them yourself when your provider recommends if they have not fallen off on their own. Ifskin glue was used, the glue will wear off by itself. When to seek medical care Call your healthcare provider if you have any of the following: More pain, redness, swelling, bleeding, or foul-smelling discharge around the incision a boni Fever of 100.4F (38C) or higher, or as directed by your healthcare provider Shaking chills Vomiting or nausea that doesn't go away Numbness, coldness, or tingling around the incision area, or changes in skin color Opening of the sutures or wound Stitches or nate come apart or fall out or surgical tape falls off before 7 days or a s directed by your healthcare provider Date Last Reviewed: 10/10/201619993096-4140 [employer]. [address] [place] [address], [place] [address]. All righ ts reserved. This information is not intended as a substitute for professional medical care. Always follow your healthcare professional's instructions. Preventing Surgical Site Infections Hand washing reduces the risk of infection. One risk of having surgery is an infection at the surgical site. The surgical site is any c ut the surgeon makes in the skin to do the operation. Surgical site infections can range fro m minor to severe or even fatal. This sheet tells you more about surgical site infections, w hat hospitals are doing to prevent them, and how they are treated if they do occur. It also tells you what you can do to prevent these infections. What causes surgical site infections? Germs are everywhere. They re on your skin, in the air, and on things you touch. Many emma ms are good. Some are harmful. Surgical site infections occur when harmful germs enter your body through the incision in your skin. Some infections are caused by germs that are in the air or on objects. But most are caused by germs found on and in your own body. Who is at risk for surgical site infections? Anyone can have a surgical site infection. Your risk is greater if you: Are an older adult Have a weak immune system or other health conditions or illnesses such as diabetes Take certain medicines such as steroids Are a smoker Have certain types of operations, such as abdominal surgery Have poor nutrition Are very overweight If the operation lasts longer than 2 hours What are the symptoms of a surgical site infection? The infection usually starts with increased skin redness, pain, and swelling around the incision. Later you may notice a cloudy or greenish-yellow discharge from the incision and i t may develop a foul odor. The incision may separate or open up. You are also likely to have a fever and may feel very ill. Symptoms can appear any time from hours to weeks after surgery. Implants such as an sanjeev ficial knee or hip can become infected at any time after the operation. How are surgical site infections treated? Surgical site infections are treated with antibiotics. The type of medicine you get will depend on the germ thought to be causing the infection. Most serious wound infections need local wound care, and in some cases, further surgery. An infected skin wound may be reopened and cleaned. Sometimes, deep wounds need to be pa cked with gauze that is changed often until the wound starts to heal from the inside out. Yo ur healthcare provider will figure out the best care needed to treat your surgical site infe ction. If an infection occurs where an implant is placed, the implant may be removed. If you have an infection deeper in your body, you may need another operation to treat it . What hospitals do to prevent surgical site infections Many hospitals take these steps to help prevent surgical site infections: Handwashing.Before the operation, your surgeon and all operating room staff scrub thei r hands and arms with an antiseptic soap. Cleanskin.The site where your incision is made is carefully cleaned with an antisept ic solution. Sterile clothing and drapes.Members of your surgical team wear medical uniforms (scrub suits), long-sleeved surgical gowns, masks, caps, shoe covers, and sterile gloves. Your bod y is fully covered with a large sterile sheet (sterile drape) except for the spot where the incision is made. Clean air.Operating rooms have special air filters and positive pressure airflow to pr event unfiltered air from entering the room. Careful use of antibiotics.Antibiotics are given no more than 60 minutes before the in cision is made and stoppedwithin 24 hoursafter surgery. This helps kill germs but avoids problems that can occur when antibiotics are taken longer. Controlled blood sugar levels.Your blood sugar level may rise because of the stress of the surgery. Your blood sugar level iswatched closely to make sure it stays within a norm al range. High blood sugar delays wound healing and increases the chances for infection. Controlled body temperature. A kvkuq-ysmb-uobzyv temperature during or after surgery pre vents oxygen from reaching the wound and makes it harder for your body to fight infection. H ospitals may warm IV fluids, increase the temperature in the operating room, and provide war m-air blankets. Proper hair removal. Any hair that must be removed is clipped right before the incision, not shaved with a razor. This prevents tiny nicks and cuts through which germs can enter. Wound care.After surgery, a closed wound is covered with a sterile dressing for a day or two. Open wounds are packed with sterile gauze and covered with a sterile dressing. What you can do to prevent surgical site infections Ask questions. Learn what your hospital is doing to prevent infection. If your doctor tells you to, shower or bathe with plain soap the night before and the da y of your operation. Follow the instructions you are given. You may be asked to use a specia lcleanser that you don t rinse off. If you smoke, stop for the longest duration possible before and after the operation. Ask your doctor about ways to quit. Take antibiotics only when your healthcare provider tells you to. Using antibiotics when they re not needed can create germs that are harder to kill. Also, finish all your antibi otics, even if you feel better. Be sure healthcare workers clean their hands with plain soap and water or with an alcoho l-based hand floor cleaner before and after caring for you. Don t be afraid to remind them. After surgery, eat healthy foods. Care for your incision as directed by your doctor or ana maria patel. When to seek medical care Call your healthcare provider if you have any of the following: Increased soreness, pain, or tenderness at the surgical site A red streak, increased redness, or puffiness near the incision Yellowish, cloudy,or bad-smelling discharge from the incision Stitches that dissolve before the wound heals Fever of 100.4F (38C) or higher, or as directed by your healthcare provider A tired feeling that doesn t go away Date Last Reviewed: 10/10/201619995612-1334 [employer]. [address] [place] [address]. All righ ts reserved. This information is not intended as a substitute for professional medical care. Always follow your healthcare professional's instructions. Where should I keep my pain medicine? Keep out of the reach of children. This medicine can be abused. Keep your medicine in a saf e place to protect it from theft. Do not share this medicine with anyone. Selling or giving away this medicine is dangerous and against the law. Store at room temperature between 20 and 25 degrees C (68 and 77 degrees F). This medicine may cause harm and if it is taken by other adults, children, or pets. R eturn medicine that has not been used to an official disposal site. Contact the [employer] at 2-552 -[phone] or your city/[facility] government to find a site. If you cannot return the medicine, flush it down the toilet. Do not use the medicine after the expiration date. [facility] AV DIALYSIS SHUNT/FISTULA DISCHARGE INSTRUCTIONS Your physician has placed/revised an arteriovenous (AV) shunt/fistula in your arm for your dialysis treatments. It is very important to protect your arm to prevent cutting off the roma w of blood in your shunt. Dressing Care: ? Keep the dressings clean and dry. Do not remove the dressing unless it gets wet. Keep dr hui on for one week and then remove and dispose. ? If your dressings get wet, remove [...] start an IV or draw blood from ? the arm with the shunt. ? DO [...] regarding your dialysis shunt, please contact your ph ysician. Hydrocodone Bitartrate Oral capsule, extended-release What is this medicine? HYDROCODONE (alvarado droe KOE done) is a pain reliever. It is used to treat constant pain that lasts for more than a few days. This medicine may be used for other purposes; ask your health care provider or pharmacist i f you have questions. What should I tell my health care provider before I take this medicine? They need to know if you have any of these conditions: gallbladder disease head injury history of a drug or alcohol abuse problem if you often drink alcohol kidney disease liver disease lung or breathing disease, like asthma mental illness pancreatic disease seizures stomach or intestine problems thyroid disease trouble passing urine an unusual or allergic reaction to hydrocodone, other medicines, foods, dyes, or preserv atives. or trying to get breast-feeding How should I use this medicine? Take this medicine by mouth with a full glass of water. Follow the directions on the prescr iption label. Do not chew, crush or dissolve this medicine. Swallow only one capsule at a ti me. Take your medicine at regular intervals. Do not take it more often than directed. Do not stop taking except on your doctor's advice. A special MedGuide will be given to you by the pharmacist with each prescription and refill . Be sure to read this information carefully each time. Talk to your business developer regarding the use of this medicine in children. Special care may be needed. Overdosage: If you think you've taken too much of this medicine contact a poison control ce nter or emergency room at once. NOTE: This medicine is only for you. Do not share this medicine with others. What if I miss a dose? If you miss a dose, take your next dose at your usual time the next day. Do not take double or extra doses. What may interact with this medicine? alcohol or any product that contains alcohol antihistamines for allergy, cough and cold atropine buprenorphine butorphanol carbamazepine certain medicines for bladder problems like oxybutynin, tolterodine certain medicines for depression, anxiety, or psychotic disturbances certain medicines for sleep certain medicines for stomach problems like dicyclomine, hyoscyamine certain medicines for travel sickness like scopolamine certain medicines for Parkinson's disease like benztropine, trihexyphenidyl erythromycin ipratropium ketoconazole MAOIs like Carbex, Eldepryl, Marplan, Nardil, and Parnate nalbuphine narcotic medicines (opiates) for pain pentazocine phenobarbital phenytoin phenothiazines like chlorpromazine, mesoridazine, prochlorperazine, thioridazine rifampin ritonavir voriconazole This list may not describe all possible interactions. Give your health care provider a list of all the medicines, herbs, non-prescription drugs, or dietary supplements you use. Also t ell them if you smoke, drink alcohol, or use illegal drugs. Some items may interact with you r medicine. What should I watch for while using this medicine? Tell your doctor or health adult daycare coordinator if your pain does not go away, [...] may develop a severe reaction. Your b ppao becomes used to the medicine. This does [...] over time to avoid any side effects. You may get drowsy or dizzy. Do not drive, use machinery, or do anything that needs mental alertness until you know how this medicine affects you. Do not stand or sit up quickly, gold cially if you are an older patient. This reduces the risk of dizzy or fainting spells. This medicine will cause constipation. Try to have a bowel movement at least every 2 to 3 d ays. If you do not have a bowel movement for 3 days, call your doctor or health care profess damien. What side effects may I notice from receiving this medicine? Side effects that you should report to your doctor or health adult daycare coordinator as soon as p ossible: allergic reactions like skin rash, itching or hives, swelling of the face, lips, or tong ue breathing problems chest pain confusion fast, irregular heartbeat feeling faint or lightheaded, falls trouble passing urine or change in the amount of urine Side effects that usually do not require medical attention (Report these to your doctor or health adult daycare coordinator if they continue or are bothersome.): constipation dizziness headache nausea stomach pain tiredness vomiting This list may not describe all possible side effects. Call your doctor for medical advice a bout side effects. You may report side effects to FDA at 1-563-PMX-1734. Where should I keep my medicine? Keep [...] degrees C (59 and 86 degrees F). Protect from l ight. Keep container tightly closed. Discard unused medicine and used packaging carefully. Pets and children can be harmed if th ey find used or lost packages. Flush any unused medicines down the toilet. Do not use the me dicine after the expiration date. NOTE: This sheet is a summary. It may not cover all possible information. If you have quest ions about this medicine, talk to your doctor, pharmacist, or health care provider. NOTE:This sheet is a summary. It may not cover all possible information. If you have questi ons about this medicine, talk to your doctor, pharmacist, or health care provider. Copyright 2013 [employer] Standard documented in this encounter Medications at Time of Discharge + + + +---------+ + + | Medication | Sig | Dispensed | Refills | Start | End Date | | | | | | Date | | + + + +---------+ + + | | Take 1 tablet by | 30 | 0 | //20 | | | HYDROcodone-acetamin | mouth every 4 hours | tablet | | 20 | | | ophen (NORCO) 5-325 | as needed for Pain. | | | | | | mg per tablet | | | | | | + + + +---------+ + + | | Take 1 tablet by | 40 | 0 | //20 | | | HYDROcodone-acetamin | mouth every 4 hours | tablet | | 20 | | | ophen (NORCO) 5-325 | as [...] mg by mouth | | 0 | 10/14/20 | | | (ZOFRAN) 4 mg tablet [...] + + + +---------+ + + | senna (SENOKOT) | Take 1 tablet by | 14 | 0 | 09/08/20 | | | 8.6 mg tablet | mouth Twice daily | tablet | | 19 | | | | as needed for | | | | | | | Constipation. | | | | | + + + +---------+ + + | sevelamer | Take 2 tablets by | 270 | 0 | 09/08/20 | | | carbonate (RENVELA) | mouth 2 times daily | tablet | | 19 | | | 800 mg tablet | (with breakfast & | | | | | | | lunch). | | | | | + + + +---------+ + + | sevelamer | Take 3 tablets by | 270 | 0 | 09/08/20 | | | carbonate (RENVELA) | mouth Daily (with | tablet | | 19 | | | 800 mg tablet | dinner). | | | | | + + + +---------+ + + documented as of this encounter Progress Notes Adia Granados, RN - 01/11/2020 2:08 PM PSTDischarge instructions given to patient and moth er verbally and written. See AVS for full education Instructions included but not limited to: S/S of infection, prevention, and who to call in the event this occurs. S/S of a DVT, prevention, and what to do in the event this occurs. Medication management to include pain medications, abx, and antiemetics. Activity restrictions to include but not limited to lifting, pulling, driving, working, bat lalit/swimming/pools/and hot tub use. Incision care, shunt care. Coughing and deep breathing. When to call 911. When to call the physician. VSS at this time. Ambulated room. Pain controlled per patients acceptable comfort level at this time. Tolerating PO intake with no uncontrollable nausea and vomiting. Prescriptions sent home with patient at discharge. D/C criteria met per protocol. documented in this enco unter Plan of Treatment Not on filedocumented as of this encounter Procedures + +--------+ + + + | Procedure Name | Priori | Date/Time | Associated Diagnosis | Comments | | | ty | | | | + +--------+ + + + | AV GRAFT CREATION | | 01/11/2020 | ESRD on dialysis | | | | | 10:00 AM | ([facility]) | | | | | PST | | | + +--------+ + + + +---+--------+ | | | | | Specia | | | l | | | Needs | | | Keep | | | 2nd | | | case | | | per | | | Christen | | | 2.24-s | | | o | +---+--------+ + +------+ +---+ + | , SERUM, | STAT | 01/11/2020 | | Results for this | | QUAL | | 9:31 AM | | procedure are in the | | | | PST | | results section. | + +------+ +---+ + | BASIC METABOLIC | STAT | 01/11/2020 | | Results for this | | PANEL | | 9:31 AM | | procedure are in the | | | | PST | | results section. | + +------+ +---+ + documented in this encounter Results , Serum, Qual (01/11/2020 9:31 AM PST) + + + + + + | Component | Value | Ref Range | Performed | Pathologist | | | | | At | Signature | + + + + + + | Preg, Serum | NEGATIVEComment: Testing | NEG | DAWNA | | | | performed at [facility];[address] | | LABORATORY | | | | Mak[address]arwal;[place] | | | | | | [address] | | | | + + + + + + + + | Specimen | + + | Blood | + + + + + + + | Performing | Address | City/State/Zipcode | Phone Number | | Organization | | | | + + + + + | [facility] | [address] | [place] [address] | [phone] | + + + + + Basic Metabolic Panel (01/11/2020 9:31 AM PST) + + + + + + | Component | Value | Ref Range | Performed | Pathologist | | | | | At | Signature | + + + + + + | Na | 137 | 135 - 145 | [facility] | | | | | mmol/L | LABORATORY | | + + + + + + | K | 5.9 (H) | 3.5 - 4.9 | [facility] | | | | | mmol/L | LABORATORY | | + + + + + + | Cl | 101 | 99 - 109 mmol/L | [facility] [...] + + + + | Glucose | 83 | 65 - 99 mg/dL | [facility] | | | | | | LABORATORY | | + + + + + + | BUN | 21 | 8 - 25 mg/dL | [facility] | | | | | | LABORATORY | | + + + + + + | Creatinine | 7.69 (H) | 0.50 - 1.00 | [facility] [...] | | | | | performed at [facility];[address] | | | | | | [address];[place], [place] | | | | | | [address] | | | | + + + + + + + + | Specimen | + + | Blood | + + + + + + + | Performing | Address | City/State/Zipcode | Phone Number | | Organization | | | | + + + + + | [facility] | [address] | [place] [address] | [phone] | + + + + + documented in this encounter Visit Diagnoses + + | Diagnosis | + + | ESRD on dialysis ([facility]) End stage renal disease | + + documented in this encounter Admitting Diagnoses + + | Diagnosis | + + | ESRD on dialysis ([facility]) End stage renal disease | + + documented in this encounter Administered Medications + +--------+ +--------+------+------+ | Medication Order | MAR | Action | Dose | Rate | Site | | | Action | Date | | | | + +--------+ +--------+------+------+ | fentaNYL (PF) injection 25-50 | Given | 01/11/20 | 50 mcg | | | | mcg 25-50 mcg, Intravenous, | | 20 12:30 | | | | | EVERY 5 MIN PRN, Pain, Initial | | PM PST | | | | | postop medication for URGENT PAIN | | | | | | | OR ESCALATING PAIN, Starting Tue | | | | | | | 01/11/20 at 1142, For 4 doses, | | | | | | | First dose must be lowest dose. | | | | | | | Use Pasero Sedation Scale. | | | | | | | [Opioid tolerant = One week or | | | | | | | longer, bwkjjf-kxi-krkmo use of | | | | | [...] + +---+---+ | HYDROcodone-acetaminophen | Given | 01/11/20 | 1 tablet | | | | (NORCO) 5-325 mg per tablet 1-2 | | 20 1:20 | | | | | tablet 1-2 tablet, Oral, EVERY 4 | | PM PST | | | | | HOURS PRN, Pain, Starting Tue | | | | | | | 01/11/20 at 1133 | | | | | | + +-------+ + +---+---+ +---+---+ | | | +---+---+ + +-------+ +--------+---+---+ | HYDROmorphone (DILAUDID) | Given | 01/11/20 | 0.3 mg | | | | injection 0.2-0.6 mg 0.2-0.6 mg, | | 20 12:16 | | | | | Intravenous, EVERY 5 MIN PRN, | | PM PST | | | | | Pain, Starting 01/11/20 at | | | | | | | 1142, First dose must be lowest | | [...] | | | | | | | iqvucx-zjg-oxrqy use of at least | | | [...] +-------+ +--------+---+---+ | Given | 01/11/20 | 0.4 mg | | | | | 20 12:08 | | | | | | PM PST | | | | +-------+ +--------+---+---+ | Given | 01/11/20 | 0.3 mg | | | | | 20 11:59 | | | | | | AM PST | | | | +-------+ +--------+---+---+ +---+---+ | | | +---+---+ + +-------+ +------+---+---+ | ondansetron (ZOFRAN) injection | Given | 01/11/20 | 4 mg | | | | 4 mg 4 mg, Intravenous, EVERY 4 | | 20 12:43 | | | | | HOURS PRN, Nausea, Vomiting, | | PM PST | | | | | Starting 01/11/20 at 1142, | | | | | | | Recovery/Phase I | | | | | | + +-------+ +------+---+---+ +---+---+ | | | +---+---+ + +---------+ [...]
--- OUTSIDE RECORDS SUMMARY | ~2020-04-05 | XMS | Encounter Summary ---
Demographics + + + | Address | [address] | | | [place] [address] | + + + | Home Phone | | + + + | Preferred Language | Unknown | + + + | Marital Status | | + + + | Rastafari Affiliation | Unknown | + + + [...] [place], [place] | | | | | [address] | | + + + + + | Lydia Palm | ECON | [place], [place] | | | | | [address] | | + + + + + | melinda METZ" | ECON | [place], [place] | | | [place] | | [address] | | + + + + + | Jose C Oconnor | ECON | [place] | | | | | [place] | | | | | [address] | | + + + + + Care Team Providers + +------+ + | Care Cemetery Laborer Name | Role | Phone | + [...] daily thru | [address] | [place] [address] | | | | | February 23, | [place], [place] | Phone: | | | | | Peritonitis | [address] | [phone] | | | | | Procedures | Phone: | Fax: | | | | | [place] | [phone] | [phone] | | | | | MEROPENEM, | Fax: | | | | | | 100 MG [place] | [phone] | | | | | | IV [...] | +--------+ + + + + | 02/19/ | Hospital | [facility] | Unknown, | Peritonitis | | 2019 | Encounter | [facility] | MD Iris Kinney | associated with | | | | [address] | [phone] | peritoneal dialysis, | | | | [place] | | initial encounter | | | | [address] | | (HCC) (Primary Dx) | | | | [phone] | | | +--------+ + + + [...] + + + | Blood Pressure | 107/67 | 02/19/2019 6:54 PM | | | | | PDT | | + + + + + | Pulse | 75 | 02/19/2019 6:54 PM | | | | | PDT | | + + + + + | Temperature | 36.9 C (98.4 F) | 02/19/2019 6:15 PM | | | | | PDT | | + + + + + | Respiratory Rate | 16 | 02/19/2019 6:54 PM | | | | | PDT | | + + + + + | Oxygen Saturation | 98% | 02/19/2019 6:15 PM | | | | | PDT [...] encounter Progress Notes Gifty Diaz RN - 02/19/2019 6:56 PM PDTFormatting of this note might be diffe rent from the original. Vitals: 02/19/19 1815 02/19/19 1854 BP: 112/70 107/67 Pulse: 73 75 Resp: 16 16 Temp: 36.9 C (98.4 F) TempSrc: Oral SpO2: 98% Administrations This Visit meropenem (MERREM) 500 mg in sodium chloride 0.9% 50 mL IVPB Admin Date 02/19/2019 Action New Bag Dose 500 mg Rate 50 mL/hr Route Intravenous Administered By Gifty Diaz RN Monitored throughout treatment; treatment completed without untoward effects from medicatio n noted. Next visit tomorrow 1730. IV left in place and wrapped for safety.. Verbalizes unde rstanding of plan of care. VS stable. Discharged ambulatory to home in stable condition. Electronically signed by: Gifty Diaz RN 02/19/2019 18:56 mily, Gifty Diaz RN - 019 6:15 PM PDTThere were no vitals filed for this visit. Ramona Oconnor received into room 440, independent ambulation accompanied by family. State s here for antibiotic infusion. Reports no change in condition, plan of care since last MD ruchi simental. Alert, oriented x 4, cooperative. Electronically signed by: Gifty Diaz RN 02/19/2019 18:15 documented in this encounter Plan of Treatment [...] 500 mg in | New Bag | 02/20/20 | 500 mg | 50 mL/hr | | | sodium chloride 0.9% 50 mL IVPB | | 19 6:13 | | | | | 500 mg, Intravenous, Administer | | PM PDT | | | | | over 60 Minutes, ONCE, Fri | | | | | | | 02/19/19 at 1825, For 1 dose, | | | | [...]
--- OUTSIDE RECORDS SUMMARY | ~2020-04-05 | XMS | Encounter Summary ---
Demographics + + + | Address | [address] | | | [place] [address] | + + + | Home Phone | | + + + | Preferred Language | Unknown | + + + | Marital Status | | + + + | Pentecostal Affiliation | Unknown | + + + | Race | Unknown | + + + | Ethnic Group | Unknown | + + + Author + + + | Author | [facility] | | | and [place] | + + + | Organization | [facility] | | | and [place] | + + + | Address | Unknown | + + + | Phone | Unavailable | + + + Support + + + + + | Name | Relationship | Address | Phone | + + + + + | Lyubov Smalls | ECON | [place], [place] | | | | | [address] | | + + + + + | Lydia Palm | ECON | [place], [place] | | | | | [address] | | + + + + + | melinda METZ" | ECON | [place], [place] | | | [place] | | [address] | | + + + + + | Jose C Oconnor | ECON | [place] | | | | | [place] | | | | | [address] | | + + + + + Care Team Providers + +------+ + | Care Conveyor Attendant Name | Role | Phone | + +------+ + | Juan F Whitley DO | PCP | | + +------+ + Encounter Details +--------+ + + + + | Date | Type | Department | Care Team | Description | +--------+ + + + + | 04/03/ | Orders Only | [facility] | [place], | | | 2018 | | [address] | [address] | | | | | [place] | [address] [place], | | | | | [address] | [place] [address] | | | | | [phone] | [phone] | | | | | | | [...] | + +--------+ + + + | ESTRADIOL | Routin | 04/03/2018 | | Results for this | | | e | 9:14 AM | | procedure are in the | | | | PDT | | results section. | + +--------+ + + + | TSH | Routin | 04/03/2018 | | Results for this | | | e | 9:14 AM | | procedure are in the | | | | PDT | | results section. | + +--------+ + + + | T4, FREE | Routin | 04/03/2018 | | Results for this | | | e | 9:14 AM | | procedure are in the | | | | PDT | | results section. | + +--------+ + + + | LUTEINIZING HORMONE | Routin | 04/03/2018 | | Results for this | | | e | 9:14 AM | | procedure are in the | | | | PDT | | results section. | + +--------+ + + + | [facility] | Routin | 04/03/2018 | | Results for this | | | e | 9:14 AM | | procedure are in the | | | | PDT | | results section. | + +--------+ + + + documented in this encounter Results Estradiol (04/03/2018 9:14 AM PDT) + + + + + + | Component | Value | Ref Range | Performed | Pathologist | | | | | At | Signature | + + + + + + | ESTRADIOL | 45.3Comment: | pg/mL | EXTERNAL | | | | Follicular: 19.5 | | LAB | | | | to 144.2 Midcycle: | | | | | | 63.9 to 356.7 | | | | | | Luteal: 55.8 | | | | | | to 214.2 | | | | | | Postmenopausal: 0 to | | | | | | 32.2 | | | | + + + + + + + + | Specimen | + + | Blood specimen | | (specimen) | + + + +---------+ + + | Performing | Address | City/State/Zipcode | Phone Number | | Organization | | | | + +---------+ + + | EXTERNAL LAB | | | | + +---------+ + + TSH (04/03/2018 9:14 AM PDT) + + + + + + | Component | Value | Ref Range | Performed | Pathologist | | | | | At | Signature | + + + + + + | TSH | 13.600 (H) | 0.450 - 5.100 | EXTERNAL | | | | | u[iU]/mL | LAB | | + + + + + + + + | Specimen | + + | Blood specimen | | (specimen) | + + + +---------+ + + | Performing | Address | City/State/Zipcode | Phone Number | | Organization | | | | + +---------+ + + | EXTERNAL LAB | | | | + +---------+ + + T4, Free (04/03/2018 9:14 AM PDT) + +-------+ + + + | Component | Value | Ref Range | Performed | Pathologist | | | | | At | Signature | + +-------+ + + + | FREE T4 | 0.8 | 0.7 - 1.5 ng/dL | EXTERNAL | | | (REF) | | | LAB | | + +-------+ + + + + + | Specimen | + + | Blood specimen | | (specimen) | + + + +---------+ + + | Performing | Address | City/State/Zipcode | Phone Number | | Organization | | | | + +---------+ + + | EXTERNAL LAB | | | | + +---------+ + + Luteinizing Hormone (04/03/2018 9:14 AM PDT) + + + + + + | Component | Value | Ref Range | Performed | Pathologist | | | | | At | Signature | + + + + + + | Luteinizing | 10.8Comment: | m[iU]/mL | EXTERNAL | | | Hormone | Follicular: 1.9 to | | LAB | | | | 12.5 Midcycle: | | | | | | 8.7 to 76.3 Luteal: | | | | | | 0.5 to 16.9 | | | | | | Postmenopausal: 15.9 to | | | | | | 54.0 | | | | + + + + + + + + | Specimen | + + | Blood specimen | | (specimen) | + + + +---------+ + + | Performing | Address | City/State/Zipcode | Phone Number | | Organization | | | | + +---------+ + + | EXTERNAL LAB | | | | + +---------+ + + FSH (04/03/2018 9:14 AM PDT) + + + + + + | Component | Value | Ref Range | Performed | Pathologist | | | | | At | Signature | + + + + + + | [facility] | 6.5Comment: | | EXTERNAL | | | | Follicular: 2.5 to | | LAB | | | | 10.2 Midcycle: | | | | | | 3.4 to 33.4 Luteal: | | | | | | 1.5 to 19.1 | | | | | | Postmenopausal: 23.0 to | | | | | | 116.3 | | | | + + + [...]
--- OUTSIDE RECORDS SUMMARY | ~2020-04-05 | XMS | Encounter Summary ---
Demographics + + + | Address | [address] | | | [place] [address] | + + + | Home Phone | | + + + | Preferred Language | Unknown | + + + | Marital Status | | + + + | Scientology Affiliation | Unknown | + + + | Race | Unknown | + + + | Ethnic Group | Unknown | + + + Author + + + | Author | [facility] | | | and [place] | + + + | Organization | [facility] | | | and [place] | + + + | Address | Unknown | + + + | Phone | Unavailable | + + + Support + + + + + | Name | Relationship | Address | Phone | + + + + + | Lyubov Smalls | ECON | [place], [place] | | | | | [address] | | + + + + + | Lydia Palm | ECON | [place], [place] | | | | | [address] | | + + + + + | melinda METZ" | ECON | [place], [place] | | | [place]ba | | [address] | | + + + + + | Jose C Oconnor | ECON | [place] | | | | | [place] | | | | | [address] | | + + + + + Care Team Providers + +------+ + | 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 | Phone [...] | | | | | | | ([facility]) | | | | | | | Procedures | | | | | | | TX | | | | | | | ANASTOMOSIS, | | | | | | | AV,ANY SITE | | | | | | | INSERTION | | | | | | | AV FISTULA | | | +--------+--------+ + + + + Encounter Details +--------+ + + + + | Date | Type | Department | Care Team | Description | +--------+ + + + + | 12/16/ | Hospital | [facility] | PoiQasim MD | | | 2020 | Encounter [facility] | [address] | | | | | [address] | [place], [place] | | | | | [address] | [address] | | | | | [place], [place] | | | | | | [address] | | | | | | [phone] | | | +--------+ + + + [...] + + + | Blood Pressure | 108/62 | 12/16/2019 4:30 PM | | | | | PST | | + + + + + | Pulse | 73 | 12/16/2019 4:30 PM | | | | | PST | | + + + + + | Temperature | 36.6 C (97.8 F) | 12/16/2019 4:30 PM | | | | | PST | | + + + + + | Respiratory Rate | 18 | 12/16/2019 3:40 PM | | | | | PST | | + + + + + | Oxygen Saturation | 98% | 12/16/2019 4:30 PM | | | | | PST | | + + + + + | Inhaled Oxygen | - | - | | | Concentration | | | | + + + + + | Weight | 88.1 kg (194 lb 3.6 | 12/16/2019 11:02 AM | | | | oz) | PST | | + + + + + | Height | 157.5 cm (5' 2") | 12/16/2019 11:02 AM | | | | | PST | | + + + + + | Body Mass Index | 35.52 | 12/16/2019 11:02 AM | | | | | PST [...] as of this encounter Discharge Instructions Instructions Dorothy Polanco RN - 12/16/2019 Arteriovenous (AV) Fistula for Dialysis An AV fistula is a connection between an artery and a vein. For this procedure, an AV fistu la is surgically created using an artery and a vein in your arm. (Your healthcare provider w ill let you know if another site is to be used.) When the artery and vein are joined, blood flow increases from the artery into the vein. As a result, the vein gets bigger over time. T he enlarged vein provides easier access to the blood for a treatment for kidney failure (irving lysis). This sheet explains the procedure and what to expect. An AV fistula increases blood flow from the artery into the vein. Over time, the vein becom es stronger and enlarged. Preparing for the procedure Prepare as you have been told. In addition: Tell yourhealthcare providerabout all the medicines you take. This includes all over -the-counter and prescription medicines, and street drugs. It also includes herbs, vitamins, and other supplements. You may need to stop taking some or all of them before the procedure . Follow any directions you re given for not eating or drinking before the procedure. Do not allow anyone to draw blood from or take blood pressure on the arm that will have the fistula before the procedure. The day of the procedure The procedure takes about 1 to 2 hours. You ll likely go home the same day. Before the procedure begins: An IV (intravenous) line is put into a vein in the arm or hand not being used for the pr ocedure. This line supplies fluids and medicines. To keep you free of pain during the procedure, you re given general anesthesia. This m edicine puts you into a state like a deep sleep through the procedure. Or a nerve block may be used. This medicine numbs the arm. With it, you may also be given medicine that makes you relaxed and drowsy through the procedure. During the procedure: The skin over your arm may be injected with numbing medicine. One or more small cuts (incisions) are then made through the numbed skin. This depends o n the size of your arm and the depth of the vein in your arm. The vein is attached to the selected artery. Any incisions made are then closed with stitches (sutures), nate, surgical glue, or s trips of surgical tape. After the procedure: You ll be asked to keep your arm raised (elevated) as often as possible for at least a week after the procedure. You ll be given medicines to manage pain as needed. Your arm and hand will be checked to make sure blood is flowing through the fistula prop erly. The feeling of blood rushing through the fistula is called a thrill. It is somewhat si milar to the purring of a cat. You ll be taught how to check for this feeling each day to make sure there are no problems with your fistula. You ll also be taught how to care for y our fistula at home. When it s time for you to leave the hospital, have an adult family member or friend re jean paul to drive you home. Recovering at home Once at home, follow all of the instructions you ve been given. Be sure to: Take all medicines as directed. Care for your incision as instructed. Check for signs of infection at the incision site (see below). Avoid heavy lifting and strenuous activities as directed. Monitor and care for your fistula as instructed. Do yourhand and arm exercises as instructed. This usually involves squeezing a ball in your hand for a few minutes each hour. Call your healthcare provider if you have any of the following: Fever of 100.4F (38C) or higher Signs of infection at the incision site, such as increased redness or swelling, warmth, worsening pain, bleeding, or bad-smelling drainage You can t feel a thrill (the vibration of blood going through your arm) Pain or numbness in your fingers, hand, or arm Bleeding, redness, or warmth around your fistula Sudden bulging of the fistula (more than usual; a slight bulge is normal) Follow-Up Your healthcare provider will check your fistula within 1 to 2 weeks after the procedure. I t will likely take about 6 to 8 weeks for the fistula to enlarge enough to start dialysis. A fter that, make sure the fistula is checked each time you have dialysis.Your healthcare pr ovidermay also suggest checkups every 6 months. Risks and possible complications include: The fistula not working properly Long wait before the fistula is ready (up to 6 months) Coldness or numbness in the hand (due to blood flowing away from the hand and into the f istula) An unsightly bump under the skin (due to enlargement of the fistula) Prolonged bleeding from the fistula after dialysis Narrowing or weakening of the blood vessels used for the fistula Formation of blood clots in the blood vessels used for the fistula Risks of anesthesia or any other medicines used during the procedure Living with an AV Fistula A problem, such as a narrowing (stricture) of the vein or an infection, can make the fistul a unusable. If this happens, you may need other treatments to repair or make a new fistula. To protect your fistula, follow these and any other guidelines you re given: Check your fistula as often as yourhealthcare providersays. If you can t feel your thrill, let your provider know right away. Make sure your fistula is checked before each dialysis treatment. Don t let anyone draw blood from or take blood pressure on the arm that has the fistul a. Wash your hands often and keep the area around your fistula clean. Don t sleep on the arm that has the fistula. Don t wear tight jewelry or a watch on the arm with your fistula. Protect your fistula from cuts, scrapes, or blows. Date Last Reviewed: 11/10/201619991977-6367 [employer]. [address] [place] [address]. All [facility] reserved. This information is not intended as a substitute for professional medical care. Always follow your healthcare professional's instructions. GOING HOME AFTER A REGIONAL NERVE BLOCK WHAT TO EXPECT AFTER A NERVE BLOCK ? The medication numbs the surgical area it does not contain narcotics. ? Expect partial to full numbness, or a pins and needles feeling as if the surgical a boni has fallen asleep. ? Heaviness, mild weakness or difficulty moving your arm or leg may occur. ? A bruise may be noted at the site of the block needle insertion. This is normal. CARING FOR THE BLOCKED BODY PART ? Protect the body area and skin that feel numb! ? Change positions often to avoid pressure injury. ? Consider lightweight padding or loose, thick clothing (like sweatpants) to protect the worthy rgical area. ? Be especially careful with cold packs. Place a lightweight towel between the pack and yo ur skin and keep the compress on for no longer than 15 minutes at a time. ? Keep the arm or leg elevated to decreased swelling. For an ARM/SHOULDER o Be sure your whole arm is supported by a sling if ordered by your surgeon. Do not let yo ur arm dangle freely at your side. o Pad and cushion the elbow. o Sometimes a block to the arm may cause mild shortness of breath, unequal pupils, a hoarse voice or drooping of the eye. These are normal side effects and will go away when the medi cine wears off. For a LEG/KNEE CATHETER o Call, don t FALL! Ask for help with walking and use your walking aid. Your care team will tell you when it s safe to walk by yourself. Avoid pivoting on the operated le g when turning: take small turning steps! o When wearing compression stockings, check your skin every few hours and adjust the upper band up and down to decrease pressure to any one area. OTHER PAIN MEDICATION ? Nerve blocks may not take away all of the pain. It s okay to take pain medication as p rescribed by your surgeon. ? Remember to eat something before taking oral pain medicine to avoid feeling nauseous. De layed mental response and constipation are common side effects of narcotics. Ask your care team for actions you can take to keep you safe and comfortable. WHEN SHOULD I CALL MY DOCTOR? ? Unexpected redness, swelling, warmth, pain or drainage ? Numb lips or mouth ? Dizziness ? Sudden or excessive sleepiness ? Feelings of depression, increased anxiety, nervousness or restlessness ? Tremors or shakes ? Skin rash or hives ? The bruising at the site of the needle insertion worsens or starts to have bloody drainag e. In case of difficulty breathing or seizure, call 911. FOR QUESTIONS OR CONCERNS 1. Call your surgeon s office (the on-call service will answer evenings and weekends) 2. [facility] An[facility]hesia 24-hour toll-free call line: [phone] (follow instructions careful ly if forwarded to a pager). After Your Surgery You ve just had [...] skin turning blue, or fainting Call 911. documented in this encounter Medications at Time of Discharge + + + +---------+ + + | Medication | Sig | Dispensed | Refills | Start | End Date | | | | | | Date | | + + + +---------+ + + | | Take 1 tablet by | 40 | 0 | 12/16/19 | | | HYDROcodone-acetamin | mouth every [...] tablet by | 14 | 0 | //20 | | | 8.6 mg tablet | mouth Twice daily | tablet | | 19 | | | | as needed for | | | | | | | Constipation. | | | | | + + + +---------+ + + | sevelamer | Take 2 tablets by | 270 | 0 | 10/30/20 | | | carbonate (RENVELA) | mouth 2 times daily | tablet | | 19 | | | 800 mg tablet | (with breakfast & | | | | | | | lunch). | | | | | + + + +---------+ + + | sevelamer | Take 3 tablets by | 270 | 0 | 10/30/20 | | | carbonate (RENVELA) | mouth Daily (with | tablet | | 19 | | | 800 mg tablet | dinner). | | | | | + + + +---------+ + + documented as of this encounter Progress Notes Ibeth Sanchez, RN - 12/16/2019 4:58 PM PSTWhat to Expect Post-Op: It is normal to have the following: - Bruising and slight swelling of the incisional area - A small amount of blood on the dressing Call the doctor if you have: - Continuous bleeding through the bandage - Excessive swelling, increased bleeding, or redness - White, yellow, or foul smelling drainage from incisions - Fever over 100.4F or chills - Pain unrelieved by pain medications - Increased ache in your leg or foot - Chest pain or shortness of breath - Anything unusual that concerns you Surgical Site Infection Prevention - Always wash your hands before touching your incision - Keep your incision clean and dry - Avoid doing things that could cause dirt or sweat to get on your incision - Don't pick at scabs. They help protect the wound - Keep your incision out of water - Take a sponge bath to avoid getting your incision wet, unless your provider tells you oth erwise - Ask your provider when you can take a shower or bathe - Ask your provider about the best way to keep your incision dry when bathing or showering - Pat sutures dry if they get wet. Don't rub - Leave the bandage (dressing) in place until you are told to remove it or change it. Black e it only as directed, using clean hands - After the first 12 hours, change your dressing every 24 hours, or as directed by your pro vider - Change your dressing if it gets wet or soiled D/C instructions reviewed with pt and mother at bedside. Denies further questions or concer ns. Pt educated on dressing and incision care. To keep C/D/I. Pt educated on sling and advis ed to wear until the block wears off for safety. Medicated with oral pain med prior to D/C. D/C home with mom and other family member. Escorted out via w/chris Sanchez RNElectronically si gned by Ibeth Sanchez RN at 12/16/2019 5:00 PM Dorothy Hess RN - 12/16/2019 4: 04 PM PSTPt experiencing 7/10 aching pain in the RUE. Regional block in place and pt has no motor control or ability to sense deep pressure to the extremity. PRN IV pain medication pro vided, however, patient became more somnolent, so further IV meds held - plan to transition to phase 2 and provide PO meds/snacks. RUE repositioned for comfort and assessed, no adverse s/s noted. Pt very emotional and requesting family. Recovery care complete and phase 2 started, pt hesham maynard brought back. Call light within reach, roby in lowest position. Report given to Ibeth MARTINEZ for phase 2 care. Dorothy Polanco RN 4:09 PM documented in thi s encounter Plan of Treatment Not on filedocumented as of this encounter Procedures + +--------+ + + + | Procedure Name | Priori | Date/Time | Associated Diagnosis | Comments | | | ty | | | | + +--------+ + + + | INSERTION AV FISTULA | | 12/16/2019 | ESRD on dialysis | | | | | 12:25 PM | (HCC) | | | | | PST | | | + +--------+ + + + | CBC WITH | STAT | 12/16/2019 | | Results for this | | DIFFERENTIAL | | 11:03 AM | | procedure are in the | | | | PST | | results section. | + +--------+ + + + | , SERUM, | STAT | 12/16/2019 | | Results for this | | QUAL | | 11:03 AM | | procedure are in the | | | | PST | | results section. | + +--------+ + + + | BASIC METABOLIC | STAT | 12/16/2019 | | Results for this | | PANEL | | 11:03 AM | | procedure are in the | | | | PST | | results section. | + +--------+ + + + documented in this encounter Results , Serum, Qual (12/16/2019 11:03 AM PST) + + + + + + | Component | Value | Ref Range | Performed | Pathologist | | | | | At | Signature | + + + + + + | Preg, Serum | NEGATIVEComment: Testing | NEG | [facility] | | | | performed at [facility] | LABORATORY | | | | [address];[place], [place] | | | | | | [address] | | | | + + + + + + + + | Specimen | + + | Blood | + + + + + + + | Performing | Address | City/State/Zipcode | Phone Number | | Organization | | | | + + + + + | [facility] | [address] | [place] [address] | [phone] | + + + + + CBC with Differential (12/16/2019 11:03 AM PST) + + + + + + | Component | Value | Ref Range | Performed | Pathologist | | | | | At | Signature | + + + + + + | WBC | 9.13 | 3.80 - 11.00 | [facility] | | | | | K/uL | LABORATORY | | + + + + + + | RBC | 4.67 | 3.70 - 5.10 | [facility] | | | | | M/uL | LABORATORY | | + + + + + + | Hemoglobin | 12.8 | 11.3 - 15.5 | [facility] | | | | | g/dL | LABORATORY | | + + + + + + | Hematocrit | 38.8 | 34.0 - 46.0 % | [facility] | | | | | | LABORATORY | | + + + + + + | MCV | 83.1 | 80.0 - 100.0 fl | [facility] | | | | | | LABORATORY | | + + + + + + | MCH | 27.5 | 27.0 - 34.0 pg | [facility] | | | | | | LABORATORY | | + + + + + + | MCHC | 33.1 | 32.0 - 35.5 | [facility] | | | | | g/dL | LABORATORY | | + + + + + + | RDW-SD | 49.0 | 37 - 53 fl | [facility] | | | | | | LABORATORY | | + + + + + + | Platelet | 268 | 150 - 400 K/uL | [facility] | | | Count | | | LABORATORY | | + + + + + + | MPV | 7.9 | fl | [facility] | | | | | | LABORATORY | | + + + + + + | Diff Type | AUTOMATED | | [facility] | | | | | | LABORATORY | | + + + + + + | % | 74.60 | % | [facility] | | | Neutrophils | | | LABORATORY | | + + + + + + | % | 16.22 | % | [facility] | | | Lymphocytes | | | LABORATORY | | + + + + + + | Monocyte % | 6.41 | % | [facility] | | | | | | LABORATORY | | + + + + + + | Eosinophils | 2.22 | % | [facility] | | | % | | | LABORATORY | | + + + + + + | Basophils % | 0.55 | % | [facility] | | | | | | LABORATORY | | + + + + + + | Neutrophils | 6.81 | 1.90 - 7.40 | [facility] | | | , Absolute | | K/uL | LABORATORY | | + + + + + + | Absolute | 1.48 | 1.00 - 3.90 | [facility] | | | Lymphocytes | | K/uL | LABORATORY | | + + + + + + | Absolute | 0.59 | 0.00 - 0.80 | [facility] | | | Monocytes | | K/uL | LABORATORY | | + + + + + + | Eosinophils | 0.20 | 0.00 - 0.50 | [facility] | | | , Absolute | | K/uL | LABORATORY | | + + + + + + | Basophils, | 0.05Comment: Testing | 0.00 - 0.10 | [facility] | | | Absolute | performed at [facility] | K/uL | LABORATORY | | | | [address];[place], [place] | | | | | | [address] | | | | + + + + + + + + | Specimen | + + | Blood | + + + + + + + | Performing | Address | City/State/Zipcode | Phone Number | | Organization | | | | + + + + + | [facility] | [address] | [place] [address] | [phone] | + + + + + Basic Metabolic Panel (12/16/2019 11:03 AM PST) + + + + + + | Component | Value | Ref Range | Performed | Pathologist | | | | | At | Signature | + + + + + + | Na | 138 | 135 - 145 | [facility] | | | | | mmol/L | LABORATORY | | + + + + + + | K | 6.0 (H) | 3.5 - 4.9 | [facility] [...] + + + + | Glucose | 78 | 65 - 99 mg/dL | [facility] | | | | | | LABORATORY | | + + + + + + | BUN | 24 | 8 - 25 mg/dL | [facility] | | | | | | LABORATORY | | + + + + + + | Creatinine | 7.35 (H) | 0.50 - 1.00 | [facility] | | | | | mg/dL | LABORATORY | | + + + + + + | BUN/Creatin | 3 | | [facility] | | | ine Ratio | | | LABORATORY | | + + + + + + | Calcium | 9.7 | 8.5 - 10.5 | [facility] | | | | | mg/dL | LABORATORY | | + + + + + + | Estimated | 6 (L)Comment: GFR <60: | >60 | [facility] | | | GFR | [...] | | | | | | [facility]D [facility] traceable | | | | | | equation.Testing | | | | | | performed at [facility] | | | | | | [address] [facility];[place], [place] | | | | | | [address] | | | | + + + + + + + + | Specimen | + + | Blood | + + + + + + + | Performing | Address | City/State/Zipcode | Phone Number | | Organization | | | | + + + + + | [facility] | [address] | [place] [address] | [phone] | + + + + + documented in this encounter Visit Diagnoses + + | Diagnosis | + + | ESRD on dialysis ([facility]) End stage renal disease | + + documented in this encounter Admitting Diagnoses + + | Diagnosis | + + | ESRD on dialysis ([facility]) End stage renal disease | + + documented in this encounter Administered Medications + +--------+---------+------+------+------+ | Medication Order | MAR | Action | Dose | Rate | Site | | | Action | Date | | | | + +--------+---------+------+------+------+ + +---+ | albuterol 2.5 mg/3 mL nebulizer | | | solution 2.5 mg 2.5 mg, | | | Nebulization, ONCE PRN, Wheezing, | | | Starting Nina 12/16/19 at 1500, For | | | 1 dose, Notify anesthesia if | | | patient is wheezing and does not | | | have a history of asthma or COPD | | | or current smoking., | | | Recovery/Phase I | | + +---+ | | | + +---+ | dextrose 50% injection 12.5-25 | | | g 12.5-25 g, Intravenous, EVERY | | | 15 MIN PRN, Low Blood Sugar, For | | | hypoglycemia. Give 12.5g (25ml) | | | IV if blood glucose 50-69 | | | mg/dL. Give 25g (50ml) IV if | | | blood glucose < 50, Starting Nina | | | 12/16/19 at 1500, Give over 2 min. | | | Repeat in 15 min if blood | | | glucose remains < 70 mg/dL. | | | Repeat blood glucose in 30 min | | | once blood glucose > 70., | | | Recovery/Phase I | | + +---+ | | | + +---+ + +-------+ +--------+---+---+ | fentaNYL (PF) injection 25-50 | Given | 12/16/19 | 25 mcg | | | | mcg 25-50 mcg, Intravenous, | | 20 3:28 | | | | | EVERY 5 MIN PRN, Pain, Initial | | PM PST | | | | | postop urgent pain or escalating | | | | | | | pain, Starting Nina 12/16/19 at | | | | | | | 1500, For 4 doses, (2 doses | | | | | | | maximum for opioid naive, 4 doses | | | | | | | maximum for opioid tolerant) | | | | | | | First dose must be lowest dose. | | | | | | | Use Pasero Sedation Scale. | | | | | | | [Opioid tolerant = One week or | | | | | | | longer, [id number] use of | | | | | [...] | HYDROmorphone (DILAUDID) | | | injection 0.2-0.6 mg 0.2-0.6 mg, | | | Intravenous, EVERY 5 MIN PRN, | | | Pain, Starting Nina 12/16/19 at | | | 1500, First dose must be lowest | | | dose, can increase subsequent | | | doses by 0.2mg within dosing | | | range. If patient meets opioid | | | tolerant definition, can start | | | with 0.4mg dose. [Maximum total | | | PACU dose 4mg] Use Pasero | | | Sedation Scale. [Opioid tolerant | | | = One week or longer, | | | jhrflm-aoo-xniat use of at least | | | the following DAILY dose: 60mg | | | oral morphine, 60mg oral | | | hydrocodone, 30mg oral oxycodone, | | | 8mg oral hydromorphone, fentanyl | | | patch 25mcg/hr, or equivalent | | | dose of another opioid], | | | Recovery/Phase I | | + +---+ | | | + +---+ | meperidine (DEMEROL) injection | | | 12.5-25 mg 12.5-25 mg, | | | Intravenous, PRN, Shivering, | | | Starting Nina 12/16/19 at 1500, For | | | 2 doses, May Repeat once in 5 | | | min., Recovery/Phase I | | + +---+ | | | + +---+ + +-------+ +------+---+---+ | ondansetron (ZOFRAN) injection | Given | 12/16/19 | 4 mg | | | | 4 mg 4 mg, Intravenous, EVERY 4 | | 20 3:26 | | | | | HOURS PRN, Nausea, Vomiting, | | PM PST | | | | | Starting Nina 12/16/19 at 1500, | | | | | | | Recovery/Phase I | | | | | | + +-------+ +------+---+---+ +---+---+ | | | +---+---+ + +-------+ +------+---+---+ | oxyCODONE (ROXICODONE) tablet 5 | Given | 12/16/19 | 5 mg | | | | mg 5 mg, Oral, ONCE PRN, Pain, | | 20 4:50 | | | | | Starting Nina 12/16/19 at 1500, For | | PM PST | | | | | 1 dose, If able to take oral | | | | | | | medication., Recovery/Phase I | | | | | | + +-------+ +------+---+---+ +---+---+ | | | +---+---+ + +-------+ +---+---+---+ | povidone-iodine 5 % external | Given | 12/16/19 | | | | | solution Topical, PRN, Other, | | 20 11:36 | | | | | pre-op, Starting Nina 12/16/19 at | | AM PST | | | | | 1055, For 1 dose, Pre-op | | | | | | + +-------+ +---+---+---+ +---+---+ | | | +---+---+ + + + +---+---+---+ | sodium chloride 0.9% (NS) | Continue | 12/16/19 | | | | | infusion at 100 mL/hr, | d by | 20 12:40 | | | | | Intravenous, CONTINUOUS, Starting | Anesthes | PM PST | | | | | Nina 12/16/19 at 1115, Pre-op | ia | | | | | + + + +---+---+---+ +---------+ +---+ +---+ | New Bag | 12/16/19 | | 10 mL/hr | | | | 20 11:36 | | | | | | AM PST | | | | +---------+ +---+ +---+ +---+---+ | | | +---+---+ documented in this encounter
--- OUTSIDE RECORDS SUMMARY | ~2020-04-05 | XMS | Encounter Summary ---
Demographics + + + | Address | [address] | | | [place] [address] | + + + | Home Phone | | + + + | Preferred Language | Unknown | + + + | Marital Status | | + + + | Amish Affiliation | Unknown | + + + | Race | Unknown | + + + | Ethnic Group | Unknown | + + + Author + + + | Author | [facility] | | | and [place] | + + + | Organization | [facility] | | | and [place] | + + + | Address | Unknown | + + + | Phone | Unavailable | + + + Support + + + + + | Name | Relationship | Address | Phone | + + + + + | Lyubov Smalls | ECON | [place], [place] | | | | | [address] | | + + + + + | Lydia Palm | ECON | [place], [place] | | | | | [address] | | + + + + + | melinda METZ" | ECON | [place], [place] | | | [place] | | [address] | | + + + + + | Jose C Oconnor | ECON | [place] | | | | | [place] | | | | | [address] | | + + + + + Care Team Providers + +------+ + | Care Embedded Systems Engineer Name | Role | Phone | [...] | | | | | ([facility]) | | | | | | | Procedures | | | | | | | [place] | | | | | | | [...] + + + + | 12/16/ | Anesthesia | [facility] | Julian Olivares | | | 2020 | Event [facility] | ANAIS [address] | | | | | [address] | [address] | | | | | [address] | [place] [address] | | | | | [place], [place] | [phone] | | | | | [address] | | | | | | [phone] | | | +--------+ + + + + Anesthesia Record + + + + + | Procedure Name | Responsible | Anesthesia Start | Anesthesia Stop Time | | | Anesthesiologist | Time | | + + + + + | INSERTION AV FISTULA | Julian Sinclari | 12/16/19 1240 | 12/16/19 1455 | | or GRAFT CREATION | ANAIS Olivares | | | | (Right Arm Upper) | | | | + + + + + +----+---+ + + | Da | T | Event | Comment | | te | i | | | | | m | | | | | e | | | +----+---+ + + | 02 | 1 | | | | /0 | 2 | | | | 6/ | 1 | | | | 20 | 8 | | | | 20 | | | | +----+---+ + + | | 1 | Pre-Procedu | | | | 2 | ral Timeout | | | | 2 | Completed | | | | 8 | | | +----+---+ + + | | 1 | Block Start | | | | 2 | | | | | 2 | | | | | 9 | | | +----+---+ + + | | 1 | AN Block | | | | 2 | End | | | | 3 | | | | | 7 | | | +----+---+ + + | | 1 | An Start | Reassessment prior to anesthesia induction/procedure. | | | 2 | | | | | 4 | | | | | 0 | | | +----+---+ + + | | 1 | Antibiotic | | | | 2 | Given | | | | 4 | | | | | 0 | | | +----+---+ + + | | 1 | An | Patient had recurrent, hard coughing, not alleviated by sedation | | | 3 | Induction | or repositioning. Decision made by surgeon and I to convert to GA | | | 0 | | LMA as previously discussed with patient. | | | 7 | | | +----+---+ + + | | 1 | An | | | | 3 | Intubation | | | | 0 | | | | | 9 | | | +----+---+ + + | | 1 | Anesthesia | | | | 3 | Ready | | | | 1 | | | | | 1 | | | +----+---+ + + | | 1 | First | | | | 3 | Inc/Proc St | | | | 2 | | | | | 1 | | | +----+---+ + + | | 1 | Extubation/ | | | | 4 | Airway LDA | | | | 4 | Removal | | | | 6 | | | +----+---+ + + | | 1 | an stop | | | | 4 | data | | | | 5 | | | | | 0 | | | +----+---+ + + | | 1 | An Stop | Patient handed off to recovery nurseIris | | | 5 | | | | | 5 | | | +----+---+ + + +------+ | Meds | +------+ + + + | Name | Total | + + + | midazolam 2 mg/mL | 2 mg | + + + | fentaNYL | 100 mcg | + + + | ceFAZolin in dextrose (ANCEF) | 2 g | | IVPB 2 g | | + + + | mepivacaine (PF) (POLOCAINE) 2% | 10 mL | | Perineural | | + + + | ropivacaine (NAROPIN) 5 mg/mL | 10 mL | | (0.5%) Perineural | | + + + | lidocaine injection 2% | 80 mg | + + + | propofol | 200 mg | + + + | ondansetron | 4 mg | + + + | dexamethasone | 4 mg | + + + | propofol infusion | 185.01 mg | + + + | heparin 5,000 units/mL 5,000 | 7,000 mL | | Units in sodium chloride (PF) | | | 0.9% injection 500 mL Optesia | | | Mixture | | + + + | sodium chloride [...] Hemodi | 07/08/19 (Admitted with this); | 07/08/19 1414 by | | | alysis | 1414; [...] + + + | Hemodi | 11/05/19; 1420 (Catheter | 11/05/19 1420 by | | | alysis | replacement) | Yesenia Rodriguez RN | | | | | | | | Nina | | | | | er | | | | +--------+ + + + | Wound | 12/16/19; 1437; Incision; Right; | 12/16/19 1437 by | | | | arm | Ama Larson RN | | +--------+ + + + | Periph | 12/16/19; 1110; Left; Hand; | 12/16/19 1110 by | 12/16/191656 by | | eral | [id number] catheter system; | Jordyn Hyde RN | Ibeth Sanchez RN | | IV | 22 gauge; Hematology, Chemistry; | | | | | 12/16/19; 1656 | | | +--------+ + + + | Airway | Placement Date: 12/16/19; | 12/16/19 130 by | 12/16/19 1446 by | | | Placement Time: 1309 (created via | Julian Sinclair | Julian Sinclair | | | procedure documentation); Mask | ANAIS Olivares | ANAIS Olivares | | | Ventilation: EZ; Attempts: 1; | | | | | Airway Type: laryngeal mask; | | | | | Size: 4; Trauma: none; Placement | | | | | Check: exhaled CO2 detection | | | | | device, bilateral chest rise; | | | | | Removal Date: 12/16/19; Removal | | | | | Time: 1446 | | | +--------+ + + + [...] | ANE AIRWAY NOTE | Routin | 12/16/2019 | | Results for this | | | e | 1:25 PM | | procedure are in the | | | | PST | | results section. | + +--------+ + + + | ANE NERVE BLOCK | Routin | 12/16/2019 | | Results for this | | CATHETER NOTE | e | 1:00 PM | | procedure are in the | | | | PST | | results section. | + +--------+ + + + documented in this encounter Results Airway (12/16/2019 1:25 PM PST) + + + | Narrative | Performed At | + + + | Julian Olivares CRNA 12/16/2019 1:26 PM Anesthesia | | | Airway Placement 12/16/2019 1:09 PM Preprocedure check: patient | | | identified, airway equipment checked, patient reassessment prior to | | | induction, airway assessed, oxygen and suction Mask ventilation: | | | easy Attempts: 1 Airway type: laryngeal mask Size: 4 Route, | | | reference point: center of mouth Tube secured with: adhesive tape | | | Trauma: none Tube placement verification: bilateral chest rise and | | | carbon dioxide detection Performing provider: Julian Olivares | | | ANAIS Authorizing provider: Julian Olivares CRNA | | | Please see intraoperative grid for any additional medication | | | documentation. | | + + + Nerve Block (12/16/2019 1:00 PM PST) + + + | Narrative | Performed At | + + + | Julian Olivares CRNA 12/16/2019 1:16 PM Perineural | | | Procedure Note 12/16/2019 12:37 PM Nerve block: | | | supraclavicular-brachial plexus Continuous block with catheter: No | | | Indication: postoperative analgesia and surgical anesthesia | | | Preprocedure check: patient identified, procedure and rescue equipment | | | checked, preevaluation including airway assessment complete, | | | risks/benefits discussed, consent obtained, timeout performed, | | | reassessment prior to procedure, monitors applied and supplemental | | | oxygen applied Patient position: sitting Preparation: | | | chlorhexidine/isopropyl alcohol, 1% lidocaine infiltration Introducer | | | used: no Local anesthetic infiltration volume in ml: 1 mL | | | Technique: ultrasound Needle: short-bevel Needle size: 20 g Needle | | | length: 4 in Depth of nerve/plexus: 2 cm Medication administered | | | through: needle and incremental injection Negative findings: no blood | | | aspirated and no CSF Attempts: 1 Ease of procedure: easy | | | Comments: .INTERSCALENE NERVE BLOCK WITHOUT CATHETER Surgeon | | | request block for intraoperative anesthesia and post op pain | | | control. Shoulder prepped on surgical side. Brachial plexus | | | identified by at the clavicle and following up. Lidocaine local on | | | the skin. Needle advanced in plane from superiorly lateral | | | posterior to inferior medial with ultrasound visualization. Local | | | mixture injected around the brachial plexus or when nerve twitch | | | noted. Patient tolerated block well and no catheter was placed. | | | Medications Administered Mepivacaine (PF) (POLOCAINE) 2% | | | Perineural, 10 mL ropivacaine (NAROPIN) 5 mg/mL (0.5%) Perineural, 10 | | | mL Date/Time: 12/16/2019 12:37 PM Please see anesthesia record | | | or flowsheet for vital sign documentation and see anesthesia record | | | or MAR for additional medication documentation. Performing | | | provider: Julian Olivares CRNA Authorizing provider: Julian | | | Yahir Olivares CRNA | | + + + documented in this encounter Visit Diagnoses Not on filedocumented in this encounter Administered Medications + +--------+ +------+------+------+ | Medication Order | MAR | Action | Dose | Rate | Site | | | Action | Date | | | | + +--------+ +------+------+------+ | ceFAZolin in dextrose (ANCEF) | Given | 12/16/19 | 2 g | | | | IVPB 2 g 2 g, Intravenous, | | 20 12:40 | | | | | Administer over 30 Minutes, Prior | | PM PST | | | | | to Incision, Starting Nina 12/16/19 | | | | | | | at 1056, For 1 dose, Keep in | | | | | | | refrigerator., Indications: | | | | | | | Surgical Prophylaxis | | | | | | + +--------+ +------+------+------+ +---+---+ | | | +---+---+ + +-------+ +------+---+---+ | dexamethasone (DECADRON) 4 | Given | 12/16/19 | 4 mg | | | | mg/mL injection Intravenous, | | 20 1:12 | | | | | PRN, Starting Nina 12/16/19 at 1312, | | PM PST | | | | | Anesthesia Intra-op | | | | | | + +-------+ +------+---+---+ +---+---+ | | | +---+---+ + +-------+ +--------+---+---+ | fentaNYL (PF) injection | Given | 12/16/19 | 50 mcg | | | | Intravenous, PRN, Starting Nian | | 20 12:53 | | | | | 12/16/19 at 1229, Anesthesia | | PM PST | | | | | Intra-op | | | | | | + +-------+ +--------+---+---+ +-------+ +--------+---+---+ | Given | 12/16/19 | 50 mcg | | | | | 20 12:29 | | | | | | PM PST | | | | +-------+ +--------+---+---+ +---+---+ | | | +---+---+ + +-------+ +--------+---+---+ | heparin 5,000 units/mL 5,000 | Bolus | 12/16/19 | 7,000 | | | | Units in sodium chloride (PF) | | 20 1:54 | mLs | | | | 0.9% injection 500 mL Optesia | | PM PST | | | | | Mixture PRN, Starting Nina 12/16/19 | | | | | | | at 1323, Intra-op | | | | | | + +-------+ +--------+---+---+ +-------+ +---+---+---+ | Given | 12/16/19 | | | | | | 20 1:23 | | | | | | PM PST | | | | +-------+ +---+---+---+ +---+---+ | | | +---+---+ + +-------+ +-------+---+---+ | lidocaine 2% injection Other, | Given | 12/16/19 | 80 mg | | | | PRN, Starting Nina 12/16/19 at 1307, | | 20 1:07 | | | | | Anesthesia Intra-op | | PM PST | | | | + +-------+ +-------+---+---+ +---+---+ | | | +---+---+ + +-------+ +--------+---+---+ | mepivacaine (PF) (POLOCAINE) 2% | Given | 12/16/19 | 10 mLs | | | | injection PERINEURAL, Starting | | 20 12:37 | | | | | Nina 12/16/19 at 1237, Anesthesia | | PM PST | | | | | Intra-op | | | | | | + +-------+ +--------+---+---+ +---+---+ | | | +---+---+ + +-------+ +------+---+---+ | midazolam (VERSED) 1 mg/mL | Given | 12/16/19 | 1 mg | | | | injection Intravenous, PRN, | | 20 12:50 | | | | | Starting Nina 12/16/19 at 1229, | | PM PST | | | | | Anesthesia Intra-op | | | | | | + +-------+ +------+---+---+ +-------+ +------+---+---+ | Given | 12/16/19 | 1 mg | | | | | 20 12:29 | | | | | | PM PST | | | | +-------+ +------+---+---+ +---+---+ | | | +---+---+ + +-------+ +------+---+---+ | ondansetron (ZOFRAN) injection | Given | 12/16/19 | 4 mg | | | | Intravenous, PRN, Starting Nina | | 20 12:28 | | | | | 12/16/19 at 1228, Anesthesia | | PM PST | | | | | Intra-op | | | | | | + +-------+ +------+---+---+ +---+---+ | | | +---+---+ + +-------+ +--------+---+---+ | propofol (DIPRIVAN) injection | Given | 12/16/19 | 200 mg | | | | Intravenous, PRN, Starting Nina | | 20 1:07 | | | | | 12/16/19 at 1307, Anesthesia | | PM PST | | | | | Intra-op | | | | | | + +-------+ +--------+---+---+ +---+---+ | | | +---+---+ + +---------+ + +-------+---+ | propofol infusion (DIPRIVAN) 10 | New Bag | 12/16/19 | 100 | 52.9 | | | mg/mL infusion Intravenous, | | 20 12:46 | mcg/kg/m | mL/hr | | | CONTINUOUS PRN, Starting Nina | | PM PST | in | | | | 12/16/19 at 1246, Anesthesia | | | | | | | Intra-op | | | | | | + +---------+ + +-------+---+ +---+---+ | | | +---+---+ + +-------+ +--------+---+---+ | ropivacaine (NAROPIN) 5 mg/mL | Given | 12/16/19 | 10 mLs | | | | (0.5%) injection PERINEURAL, | | 20 12:37 | | | | | Starting Nina 12/16/19 at 1237, | | PM PST | | | | | Anesthesia Intra-op | | | | | | + +-------+ +--------+---+---+ +---+---+ | | | +---+---+ + + [...]
--- OUTSIDE RECORDS SUMMARY | ~2020-04-05 | XMS | Encounter Summary ---
Demographics + + + | Address | [address] | | | [place] [address] | + + + | Home Phone | | + + + | Preferred Language | Unknown | + + + | Marital Status | | + + + | Worship Affiliation | Unknown | + + + [...] [place], [place] | | | | | [address] | | + + + + + | Lydia Palm | ECON | [place], [place] | | | | | [address] | | + + + + + | melinda METZ" | ECON | [place], [place] | | | [place] | | [address] | | + + + + + | Jose C Oconnor | ECON | [place] | | | | | [place] | | | | | [address] | | + + + + + Care Team Providers + +------+ + | Care Ssn/Ssbn Assistant Navigator Name | Role | Phone | + [...] | Radiology | Diagnoses | Tres | [facility] | | | | | End-stage | Shad Raymundo MD | Intra Op [address] | | | | | renal | [address] | | | | | disease | [address] | [place], [place] | | | | | ([facility]) | [address] | [address] | | | | | Procedures | [place] | Phone: | | | | | IR | [place] [address] | [phone] | | | | | Replacement | Phone: | Fax: | | | | | Tunneled | [phone] | [phone] | | | | | Cath | Fax: | | | | | | | [phone] | | +--------+--------+ + + + + Reason for Visit Diagnostic/Screening (Routine) +--------+--------+ + + + + | Status | Reason | Specialty | Diagnoses / | Referred By | Referred To | | | | | Procedures | Contact | Contact | +--------+--------+ + + + + | Closed | | Radiology | Diagnoses | Tres | [facility] | | | | | End-stage | Shad Raymundo MD | Intra Op [address] | | | | | renal | [address] | | | | | disease | [address] | [place], [place] | | | | | (HCC) | [address] | [address] | | | | | Procedures | [facility] Phone: | | | | | IR | [place] [address] | [phone] | | | | | Replacement | Phone: | Fax: | | | | | Tunneled | [phone] | [phone] | | | | | Cath | Fax: | | | | | | | [phone] | | +--------+--------+ + + + + Encounter Details +--------+ + + + + | Date | Type | Department | Care Team | Description | +--------+ + + + + | 11/05/ | Hospital | [facility] | Shad Joshua, | End-stage renal | | 2019 | Encounter | CENTER IR INTRA OP | [address] | disease (HCC) | | | | [address] | [address] | | | | | [place], [place] | [place] [address] | | | | | [address] | [phone] | | | | | [phone] | | | +--------+ + + + [...] + + + | Blood Pressure | 120/60 | 11/05/2019 3:30 PM | | | | | PST | | + + + + + | Pulse | 75 | 11/05/2019 3:30 PM | | | | | PST | | + + + + + | Temperature | 36.1 C (97 F) | 11/05/2019 12:00 PM | | | | | PST | | + + + + + | Respiratory Rate | 17 | 11/05/2019 3:00 PM | | | | | PST | | + + + + + | Oxygen Saturation | 97% | 11/05/2019 3:30 PM | | | | | PST | | + + + + + | Inhaled Oxygen | - | - | | | Concentration | | | | + + + + + | Weight | 88.4 kg (194 lb 14.2 | 11/05/2019 12:00 PM | | | | oz) | PST | | + + + + + | Height | 157.5 cm (5' 2") | 11/05/2019 12:00 PM | | | | | PST | | + + + + + | Body Mass Index | 35.65 | 11/05/2019 12:00 PM | | | | | PST [...] as of this encounter Discharge Instructions Instructions Yesenia Rodriguez RN - 11/05/2019DIALYSIS CATHETER HOME CARE INSTRUCTIONS ACTIVITY GUIDELINES * Rest today * Resume usual activities tomorrow. Check with your doctor about resuming heavy physical wo rk. * Daily exercise, housework, sexual activity and sleeping can be safely done as long as the catheter is taped securely to your chest. * No heavy lifting (greater than 10 pounds) for 48 hours * No driving for 24 hours if sedation is given (refer to Sedation Discharge Instructions). DIET * Drink fluids per your doctor's orders * Follow a Renal diet as usual * If you have any questions or concerns about the renal diet, please call the Dialysis Cent er PERM CATH SITE CARE * You may have some bruising (purplish discoloration) and mild tenderness where the cathete r was inserted. That is normal and may last 2-5 days. * Take Tylenol for pain, if needed * Keep site clean and dry. Keep catheter securely taped. * No bathing, swimming, hot tubs or jacuzzis for as long as you have the catheter. * No showering for at least 14 days after placement. Sponge baths only during this time. Ch lianet with your doctor as to when you can resume showering. * Continue with medications * To avoid accidental catheter removal exercise caution when removing your clothes * CALL YOUR DOCTOR IF: * You have a temperature over 100 degrees * The site is warm, red, swollen, sore * The site has pus-like drainage * The bruising significantly increases * Notify MD if you have any excessive bleeding or large swelling. A small amount of blood o n the gauze is normal. IMPORTANT: * Follow-up with the Dialysis Center. DO YOU HAVE ANY OTHER QUESTIONS? If you have any questions or concerns about this information or your care at home, please d iscuss them with your doctor or nurse today before you leave. Or, call your doctor's office later. If you have questions or concerns after business hours, please call the [facility] Department. Recovery After Procedural Sedation (Adult) You have been given medicine by vein to make you sleep during your procedure. This may have included both a pain medicine and sleeping medicine. Most of the effects have worn off. But you may still have some drowsiness for the next 6 to 8 hours. Home care Follow these guidelines when you get home: For the next 8 hours, you should be watched by a responsible adult. This person should m lincoln sure your condition is not getting worse. Don't drink any alcoholfor the next [address], operate dangerous machinery,make important business or personal decisions , or sign legal documentsduring the next 24 hours. Note: Your healthcare provider may tell you not to take any medicine by mouth for pain or s leep in the next 4 hours. These medicines may react with the medicines you were given in the hospital. This could cause a much stronger response than usual. Follow-up care Follow up with your healthcare provider if you are not alert and back to your usual level o f activity within 12 hours. When to seek medical advice Call your healthcare provider right away if any of these occur: Drowsiness gets worse Weakness or dizziness gets worse Repeated vomiting You can't be awakened Date Last Reviewed: 08/27/201619995138-9695 [employer]. [address] [place] [address], [place] [address]. All righ ts reserved. This information is not intended as a substitute for professional medical care. Always follow your healthcare professional's instructions. documented in this encounter Medications at Time [...] tablet by | 14 | 0 | 20 | | | 8.6 mg tablet | mouth Twice daily | tablet | | 19 | | | | as needed for | | | | | | | Constipation. | | | | | + + + +---------+ + + | sevelamer | Take 2 tablets by | 270 | 0 | 20 | | | carbonate (RENVELA) | mouth 2 times daily | tablet | | 19 | | | 800 mg tablet | (with breakfast & | | | | | | | lunch). | | | | | + + + +---------+ + + | sevelamer | Take 3 tablets by | 270 | 0 | 20 | | | carbonate (RENVELA) | mouth Daily (with | tablet | | 19 | | | 800 mg tablet | dinner). | | | | | + + + +---------+ + + | oxyCODONE | Take 0.5-2 tablets | 15 | 0 | 09/08/20 | | | (ROXICODONE) 5 mg | by mouth every 8 | tablet | | 19 | 0 | | tablet | hours as needed | | | | | | | (severe pain). | | | | | + + + +---------+ + + | | Take 1 tablet by | 20 | 0 | 09/14/20 | | | oxyCODONE-acetaminop | mouth every 4 hours | tablet | | 19 | 0 | | hen (PERCOCET) 5-325 | as needed for Pain. | | | | | | mg per tablet | | | | | | + + + +---------+ + + documented as of this encounter Progress Notes Yesenia Rodriguez RN - 11/05/2019 3:15 PM PSTOozing noted at site of tunneled dialysis anjana Sesay clinical tech at bedside to change dressing. Yesenia Rodriguez RN 11/05/19 1525 Yesenia Pollock RN - 11/05/2019 1:00 PM PSTDischarge instructions including how to care for worthy rgical site and when to call the doctor were reviewed with the patient and mother. All quest ions were answered. Oozing noted at surgical site; cathode washer came to bedside and dressin g was changed. Oozing improved. Patient to be discharged home via wheelchair with mother. Yesenia Rodriguez RN 11/05/19 3:49 PM do cumented in this encounter Plan of Treatment Not on filedocumented as of this encounter Procedures + +--------+ + + + | Procedure Name | Priori | Date/Time | Associated Diagnosis | Comments | | | ty | | | | + +--------+ + + + | IR REPLACEMENT | Routin | 11/05/2019 | End-stage renal | Results for this | | TUNNELED CATH SAME | e | 2:05 PM | disease (HCC) | procedure are in the | | ACCESS | | PST | | results section. | + +--------+ + + + | PROTIME INR | STAT | 11/05/2019 | | Results for this | | | | 12:32 PM | | procedure are in the | | | | PST | | results section. | + +--------+ + + + | CBC WITH | STAT | 11/05/2019 | | Results for this | | DIFFERENTIAL | | 12:32 PM | | procedure are in the | | | | PST | | results section. | + +--------+ + + + | HCG, SERUM, QUANT | STAT | 11/05/2019 | | Results for this | | | | 12:32 PM | | procedure are in the | | | | PST | | results section. | + +--------+ + + + documented in this encounter Results IR Replacement Tunneled Cath [...] | | | | Signed by: Bianka Joshua, Shad | | Sign Date/Time: 11/05/2019 5:21 PM | + + + +---------+ + + | Performing | Address | City/State/[facility] | Phone Number | | Organization | | | | + +---------+ + + | [facility] | | | | + +---------+ + + Protime INR (11/05/2019 12:32 PM PST) + + + + + + | Component | Value | Ref Range | Performed | Pathologist | | | | | At | Signature | + + + + + + | INR | 1.0Comment: REFERENCE | | [facility] | | | | RANGE:0.9 - 1.2 | | LABORATORY | | | | NON-ANTICOAGULATED2.0 | | | | | | - 3.0 ALL OTHER | | | | | | THERAPEUTIC | | | | | | INDICATIONS2.5 - 3.5 | | | | | | MECHANICAL HEART VALVES, | | | | | | RECURRENT OR SYSTEMIC | | | | | | EMBOLISMTesting | | | | | | performed at [facility] | | | | | | [address] [facility];[place], [place] | | | | | | [address] | | | | + + + + + + + + | Specimen | + + | Blood | + + + + + + + | Performing | Address | City/State/Zipcode | Phone Number | | Organization | | | | + + + + + | [facility] | [address] | [place] [address] | [phone] | + + + + + HCG, Serum, Quant (11/05/2019 12:32 PM PST) + + + + + + | Component | Value | Ref Range | Performed | Pathologist | | | | | At | Signature | + + + + + + | hCG Quant, | <4Comment: APPROX | <4 mIU/mL | [facility] | | | Serum | GESTATIONAL AGE..APPROX | | LABORATORY | | | | HCG RANGE 0.2 - 1 WEEK . | | | | | | . . . . 5 - 501 - 2 | | | | | | WEEKS . . . . . 50 - | | | | | | 5002 - 3 WEEKS . . . . | | | | | | 100 - [address] - 4 WEEKS | | | | | | . . . . 500 - 211151 - | | | | | | 5 WEEKS . . . . 1000 - | | | | | | 604831 - 6 WEEKS . . . | | | | | | [address] - 8198492 - 8 | | | | | | WEEKS . . . [address] - | | | | | | [id number] - 3 MONTHS . . . | | | | | | [address] - 068578 Testing | | | | | | performed at [facility];[address] | | | | | | [address];[place] | | | | | | [address] | | | | + + + + + + + + | Specimen | + + | Blood | + + + + + + + | Performing | Address | City/State/Zipcode | Phone Number | | Organization | | | | + + + + + | [facility] | [address] | [place] [address] | [phone] | + + + + + CBC with Differential (11/05/2019 12:32 PM PST) + + + + + + | Component | Value | Ref Range | Performed | Pathologist | | | | | At | Signature | + + + + + + | WBC | 6.77 | 3.80 - 11.00 | [facility] | | | | | K/uL | LABORATORY | | + + + + + + | RBC | 4.55 | 3.70 - 5.10 | [facility] | | | | | M/uL | LABORATORY | | + + + + + + | Hemoglobin | 12.7 | 11.3 - 15.5 | [facility] | | | | | g/dL | LABORATORY | | + + + + + + | Hematocrit | 38.2 | 34.0 - 46.0 % | [facility] | | | | | | LABORATORY | | + + + + + + | MCV | 83.9 | 80.0 - 100.0 fl | [facility] [...] + + + + | RDW-SD | 45.1 | 37 - 53 fl | [facility] | | | | | | LABORATORY | | + + + + + + | Platelet | 196 | 150 - 400 K/uL | [facility] | | | Count | | | LABORATORY | | + + + + + + | MPV | 8.8 | fl | [facility] | | | | | | LABORATORY | | + + + + + + | Diff Type | AUTOMATED | | [facility] | | | | | | LABORATORY | | + + + + + + | % | 75.50 | % | [facility] | | | Neutrophils | | | LABORATORY | | + + + + + + | % | 16.44 | % | [facility] | | | Lymphocytes | | | LABORATORY | | + + + + + + | Monocyte % | 4.30 | % | [facility] | | | | | | LABORATORY | | + + + + + + | Eosinophils | 2.96 | % | [facility] | | | % | | | LABORATORY | | + + + + + + | Basophils % | 0.80 | % | [facility] | | | | | | LABORATORY | | + + + + + + | Neutrophils | 5.11 | 1.90 - 7.40 | [facility] | | | , Absolute | | K/uL | LABORATORY | | + + + + + + | Absolute | 1.11 | 1.00 - 3.90 | [facility] | | | Lymphocytes | | K/uL | LABORATORY | | + + + + + + | Absolute | 0.29 | 0.00 - 0.80 | [facility] | | | Monocytes | | K/uL | LABORATORY | | + + + + + + | Eosinophils | 0.20 | 0.00 - 0.50 | [facility] | | | , Absolute | | K/uL | LABORATORY | | + + + + + + | Basophils, | 0.05Comment: Testing | 0.00 - 0.10 | [facility] | | | Absolute | performed at [facility];[address] | K[address] | LABORATORY | | | | [address];[place], [place] | | | | | | [address] | | | | + + + + + + + + | Specimen | + + | Blood | + + + + + + + | Performing | Address | City/State/Zipcode | Phone Number | | Organization | | | | + + + + + | [facility] | [address] | [place] [address] | [phone] | + + + + + documented in this encounter Visit Diagnoses + + | Diagnosis | + + | End-stage renal disease (HCC) End stage renal disease | + + documented in this encounter Administered Medications + +---------+ +------+------+------+ | Medication Order | MAR | Action | Dose | Rate | Site | | | Action | Date | | | | + +---------+ +------+------+------+ | ceFAZolin in dextrose (ANCEF, | New Bag | 11/05/20 | 2 g | | | | KEFZOL) IVPB Administer over 30 | | 19 1:39 | | | | | Minutes, CONTINUOUS PRN, Starting | | PM PST | | | | | 11/05/19 at 1339 | | | | | | + +---------+ +------+------+------+ +---+---+ | | | +---+---+ + +-------+ +--------+---+---+ | fentaNYL (PF) injection | Given | 11/05/20 | 25 mcg | | | | Intravenous, PRN, Starting Fri | | 19 1:40 | | | | | 11/05/19 at 1340 | | PM PST | | | | + +-------+ +--------+---+---+ +---+---+ | | | +---+---+ + +-------+ +--------+---+---+ | heparin 1,000 units/mL | Given | 11/05/20 | 1,600 | | | | injection Intravenous, PRN, | | 19 1:50 | Units | | | | Starting 11/05/19 at 1350 | | PM PST | | | | + +-------+ +--------+---+---+ +-------+ +--------+---+---+ | Given | 11/05/20 | 1,600 | | | | | 19 1:50 | Units | | | | | PM PST | | | | +-------+ +--------+---+---+ +---+---+ | | | +---+---+ + +-------+ +--------+---+---+ | iohexol (OMNIPAQUE 240) 240 | Given | 11/05/20 | 15 mLs | | | | mg/mL injection Intravenous, | | 19 1:41 | | | | | PRN, Starting Fri11/05/19 at | | PM PST | | | | | 1341 | | | | | | + +-------+ +--------+---+---+ +---+---+ | | | +---+---+ + +-------+ +--------+---+---+ | lidocaine 1% injection PRN, | Given | 11/05/20 | 10 mLs | | | | Starting Fri11/05/19 at 1339 | | 19 1:39 | | | | | | | PM PST | | | | + +-------+ +--------+---+---+ +---+---+ | | | +---+---+ + +-------+ +------+---+---+ | ondansetron (ZOFRAN) injection | Given | 11/05/20 | 4 mg | | | | PRN, Starting Fri11/05/19 at | | 19 2:02 | | | | | 1402 | | PM PST | | | | + +-------+ +------+---+---+ +---+---+ | | | +---+---+ + +-------+ +-------+---+---+ | povidone-iodine 5 % external | Given | 11/05/20 | 4 mLs | | | | solution Topical, PRN, Other, | | 19 11:51 | | | | | pre-op, Starting Fri11/05/19 at | | AM PST | | | | | 1126, For 1 dose, Pre-op | | | | | | + +-------+ +-------+---+---+ +---+---+ | | | +---+---+ + +---------+ +---+ +---+ | sodium chloride 0.9% (NS) | New Bag | 11/05/20 | | 50 mL/hr | | | infusion at 50 mL/hr, | | 19 11:55 | | | | | Intravenous, CONTINUOUS, Starting | | AM PST | | | | | 11/05/19 at 1145, Pre-op | | | | | | + +---------+ +---+ +---+ +---+---+ | | | +---+---+ documented in this encounter
--- OUTSIDE RECORDS SUMMARY | ~2020-04-05 | XMS | Encounter Summary ---
Demographics + + + | Address | [address] | | | [place] [address] | + + + | Home Phone | | + + + | Preferred Language | Unknown | + + + | Marital Status | | + + + | Buddhism Affiliation | Unknown | + + + | Race | Unknown | + + + | Ethnic Group | Unknown | + + + Author + + + | Author | [facility] | | | and [place] | + + + | Organization | [facility] | | | and [place] | + + + | Address | Unknown | + + + | Phone | Unavailable | + + + Support + + + + + | Name | Relationship | Address | Phone | + + + + + | Lyubov Smalls | ECON | [place], [place] | | | | | [address] | | + + + + + | Lydia Palm | ECON | [place], [place] | | | | | [address] | | + + + + + | melinda METZ" | ECON | [place], [place] | | | [place] | | [address] | | + + + + + | Jose C Oconnor | ECON | [place] | | | | | [place] | | | | | [address] | | + + + + + Care Team Providers + +------+ + | Care Retail Consultant Name | Role | Phone | + +------+ + | Unknown, Physician | PCP | | + +------+ + Reason for Visit +--------+ + | Reason | Comments | +--------+ + | Other | fistula report | +--------+ + Encounter Details +--------+ + + + + | Date | Type | Department | Care Team | Description | +--------+ + + + + | 12/22/ | Telephone | [facility] | Qasim Pederson MD | Other (fistula | | 2020 | | VASCULAR SURGERY | [address] | report ) | | | | [address] | [address] | | | | | [place] | [address] | | | | | [address] | | | | | | [phone] | | | +--------+ + + + [...]
--- OUTSIDE RECORDS SUMMARY | ~2020-04-05 | XMS | Encounter Summary ---
Demographics + + + | Address | [address] | | | [place] [address] | + + + | Home Phone [...] [place], [place] | | | | | [address] | | + + + + + | Lydia Palm | ECON | [place], [place] | | | | | [address] | | + + + + + | melinda METZ" | ECON | [place], [place] | | | [place]ba | | [address] | | + + + + + | Jose C Oconnor | ECON | [address] [place] | | | | | [place] | | | | | [address] | | + + + + + Care Team Providers + +------+ + | Care Pay Per Click Strategist Name | Role | Phone | + +------+ + | Unknown, Physician | PCP | | + +------+ + Reason for Referral Diagnostic/Screening (Routine) +--------+--------+ + + + + | Status | Reason | Specialty | Diagnoses / | Referred By | Referred To | | | | | Procedures | Contact | Contact | +--------+--------+ + + + + | Closed | | Radiology | Diagnoses | Kylie Alves, | | | | | | PAD | DNP [address] | | | | | | (peripheral | [address] | | | | | | artery | [address] [address] | | | | | | disease) | [place] | | | | | | ([facility]) | [address] | | | | | | Procedures | Phone: | | | | | | VAS Ankle | [phone] | | | | | | Brachial | Fax: | | | | | | Index | [phone] | | | | | | Resting | | | +--------+--------+ + + + + Reason for Visit +---------+ + | Reason | Comments | +---------+ + | Consult | AVF creation | +---------+ + Encounter Details +--------+---------+ + + + | Date | Type | Department | Care Team | Description | +--------+---------+ + + + | 12/23/ | Office | [facility] | Mundo Ramos MD | PAD (peripheral | | 2020 | Visit | VASCULAR SURGERY | [address] | artery disease) | | | | [address] | [place] | ([facility]) (Primary Dx); | | | | [place] | [address] | ESRD on dialysis | | | | [address] | [phone] | ([facility]) | | | | [phone] | | | +--------+---------+ + + + [...] +---------+ + + | Blood Pressure | 129/81 | 12/23/2019 4:03 PM | | | | | PST | | + +---------+ + + | Pulse | 84 | 12/23/2019 4:03 PM | | | | | PST | | + +---------+ + + | Temperature | - | - | | + +---------+ + + | Respiratory Rate | - | - | | + +---------+ + + | Oxygen Saturation | 97% | 12/23/2019 4:03 PM | | | | | PST [...] documented as of this encounter Progress Notes Mundo Ramos MD - 12/23/2019 4:30 PM PST Subjective Subjective Ms. Oconnor is a pleasant 39 y.o. female with PMH significant for ESRD on PD, hypertension, and obesity, who is referred to me for right arm AV fistula repair. Patient reports she had a fistula placed on 12/16/[address] Pederson, vascular surgery and four days later it was not fu nctional. Patient reports she gets dialysis on Mondays, Wednesdays, and Fridays with chest t unnel catheter. Patient has a history of multiple AV fistula and graft placements and even p eritoneal dialysis placement for dialysis access. Past Medical History: Diagnosis Date Acid reflux [...] 10/25/15 showed normal sized kidneys. She initiated PAVILION CUTTER with PD 10/28/15. 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 GERD (gastroesophageal reflux disease) Hypercalcemia 09/07/2017 Hyperphosphatemia [...] PD cath ARTERIAL BYPASS SURGRY AV FISTULA INSERTION Right 12/16/2019 Procedure: INSERTION AV FISTULA or GRAFT CREATION; Surgeon: Qasim Pederson MD; Location: [facility] MAIN OR AV FISTULA REPAIR N/A 08/26/2019 Procedure: REVISION LEFT AXILLARY AVG; WILL NEED C-ARM, OCCLUSION BALLOONS, VIABAHN STENTS ; Surgeon: Qasim Pederson MD; [place] [facility] [place] FISTULA REPAIR Left 09/03/2019 Procedure: Resection of left arm AV graft with wound vac placement; Surgeon: Lexi Posada; [place] [facility] [place] CATHETER REMOVAL 02/04/2019 Procedure: DIALYSIS CATHETER - REMOVAL; Surgeon: Qasim Pederson MD; Location: [facility] MAIN OR ; Service: Vascular; Laterality: N/A; Infected PD catheter removal DEBRIDEMENT Left 07/08/2019 Procedure: LEFT AXILLA WOUND DEBRIDEMENT, WASHOUT AND POSSIBLE WOUND VAC PLACEMENT; Surge on: Qasim Pederson MD; [place] [facility] [place] OTHER SURGICAL HISTORY Left 03/11/2019 AV FISTULA PLACEMENT - Procedure: AV FISTULA; Surgeon: Qasim Pederson MD; Location: [facility]; Service: Vascular; Laterality: Left; OTHER SURGICAL HISTORY HARDWARE PRESENT OTHER SURGICAL HISTORY Right 01/2019 chest wall OTHER SURGICAL HISTORY Left 05/06/2019 AV GRAFT CREATION - Procedure: AV GRAFT CREATION; Surgeon: Qasim Pederson MD; Location: [facility] MAIN OR; Service: Vascular; Laterality: Left; bovine carotid graft OTHER SURGICAL HISTORY Left 05/26/2019 WOUND VAC PLACEMENT/REPLACEMENT - Procedure: WOUND VAC - PLACEMENT - REPLACEMENT; Surgeon : Qasim Pederson MD; Location: [facility] MAIN OR; Service: Vascular; Laterality: Left; PERITONEAL CATHETER PLACEMENT/REMOVAL 10/28/2015 Procedure: LAPAROSCOPIC - PERITONEAL DIALYSIS CATH INSERTION; Surgeon: Mundo Ramos MD; Lo cation: [facility] MAIN OR; Service: Vascular; Laterality: N/A; UPPER GASTROINTESTINAL ENDOSCOPY 09/10/2017 Procedure: ESOPHAGOGASTRODUODENOSCOPY; Surgeon: Beena Peters MD; Location: [facility] ENDOSCOP [facility]; Service: Gastroenterology; Laterality: N/A; WISDOM TOOTH EXTRACTION Social History Tobacco Use Smoking status: Former Smoker Packs/day: 0.25 Years: 10.00 Pack years: 2.50 Last attempt to quit: 2005 Years since quittin.1 Smokeless tobacco: Never Used Substance Use Topics Alcohol use: Not Currently Comment: Alcoholic Drinks/day: occ Drug use: Yes Types: Marijuana Comment: Drug use: Yes. uses oil, 3-4x daily via inhalation. Family History Problem Relation Age of Onset Cancer Maternal Grandmother breast ca Kidney disease Paternal Grandfather renal falure Other (see comment) Mother Other (see comments) - healthy Diabetes Father Breast cancer Maternal Grandmother Paras hypertherm Neg Hx Current Outpatient Medications on File Prior to Visit Medication Sig Dispense Refill HYDROcodone-acetaminophen (NORCO) 5-325 mg per tablet Take 1 tablet by mouth every 4 ho urs as needed for Pain. 40 tablet 0 omeprazole (PRILOSEC) 20 mg capsule Take 20 mg by mouth every morning (before breakfast ). ondansetron (ZOFRAN) 4 mg tablet Take 4 mg by mouth every 6 hours as needed. promethazine (PHENERGAN) 25 mg tablet Take 25 mg by mouth every 6 (six) hours as needed for Nausea. senna (SENOKOT) 8.6 mg tablet Take 1 tablet by mouth Twice daily as needed for Constip ation. 14 tablet 0 sevelamer carbonate (RENVELA) 800 mg tablet Take 2 tablets by mouth 2 times daily (with breakfast & lunch). 270 tablet 0 sevelamer carbonate (RENVELA) 800 mg tablet Take 3 tablets by mouth Daily (with dinner) . 270 tablet 0 No current facility-administered medications on file prior to visit. Allergies Allergen Reactions Adhesive & Tape Itching Comprehensive ROS performed and pertinent items described in the HPI. Objective Objective BP 129/81 | Pulse 84 | SpO2 97% Vitals:reviewed CONSTITUTIONAL: Conversant, well developed, NAD EYES: Anicteric sclerae, no lid drag, no proptosis RESP: Normal effort, regular, even, unlabored rate CV: No peripheral edema, rate regular SKIN: [place], warm, dry without rash/lesion MS: ROM not limited, no digital cyanosis, normal gait NEURO: Cranial nerves II-XII grossly intact, A&O times 3 PSYCH: appropriate affect, speech and tone, judgement and insight intact Vascular: Scars on both upper extremities Assessment Assessment and Plan Vein mapping US of the arm and lower extremities results from today reviewed and discussed with the patient. Discussed fistula graft placement in the right arm or fistula placed in th e leg. Discussed surgical option and mechanism of AV graft repair with the patient. We have discussed benefits and risks of this procedure, including infection, bleeding, and graft reyes ng dysfunctional. Patient is understanding and agreeable to right arm AV graft repair, and h as signed consent for surgery on 12/28/2019. Patient was instructed not to eat or drink fluid s after 11:59 PM on 12/27/2019.All questions and concerns addressed. Patient will follow up a fter surgery. Patient understands and is agreeable. Attending Note: Documentation assistance provided by Juan Dai (Scribe). In formation recorded by the scribe has been reviewed and validated by me. I agree with its con tents. Signed by: Juan Mishra and Alex Dai, Scribe 12/23/19, 4:15 PM Mundo Ramos MD documented in this encount er Plan of Treatment + +------+--------+ + + | Name | Type | Priori | Associated Diagnoses | Order Schedule | | | | ty | | | + +------+--------+ + + | Basic Metabolic | Lab | Routin | ESRD on dialysis | 1 Occurrences | | Panel | | e | ([facility]) | starting 12/23/2019 | | | | | | until 12/23/2020 | + +------+--------+ + + | CBC no Differential | Lab | Routin | ESRD on dialysis | 1 Occurrences | | | | e | ([facility]) | starting 12/23/2019 | | | | | | until 12/23/2020 | + +------+--------+ + + documented as of this encounter Results VAS Ankle Brachial Index Resting (12/23/2019 3:43 PM PST) + + | Specimen | + + | | + + + + + | Impressions | Performed At | + + + | Normal bilateral ankle brachial and toe brachial indices. Ankle | [facility] | | Brachial Indices Categorization of Disease INDEX | | | EXTENT OF DISEASE > 1.0 Normal .90-.99 | | | Mild / Borderline .60-.89 Moderate .50-.59 | | | Severe < .49 Severe | | | Signed by: Daphney Dumont Chet Sign Date/Time: 12/24/2019 7:54 AM | | + + + + + + | Narrative | Performed At | + + + | LOWER EXTREMITY ARTERIAL SCAN, ANKLE BRACHIAL INDEX CLINICAL | [facility] | | INFORMATION: End stage renal disease. Dialysis planning. | | | COMPARISON: VAS LOWER EXTREMITY VEIN MAPPING BILATERAL (12/23/2019); | | | PROCEDURE: Using continuous wave Doppler, segmental pressure | | | measurements in both arms and both legs. FINDINGS: (measurements | | | in millimeters of mercury systolic) Left Arm: 100 RIGHT | | | Dorsalis Pedis: 127 Posterior Tibial: 129 MARLYS: 1.29. TBI: 1.14 | | | Waveforms: Triphasic LEFT Dorsalis Pedis: 129 Posterior Tibial: | | | 132 MARLYS: 1.32. TBI: 1.21 Waveforms: Triphasic | | + + + + + | Procedure Note | + + | Endy, Rad Results In - 12/24/2019 7:57 AM PST | | LOWER EXTREMITY ARTERIAL SCAN, ANKLE BRACHIAL INDEX | | | | CLINICAL INFORMATION: | | End stage renal disease. Dialysis planning. | | | | COMPARISON: | | VAS LOWER EXTREMITY VEIN MAPPING BILATERAL (12/23/2019); | | | | PROCEDURE: | | Using continuous wave Doppler, segmental pressure measurements in both | | arms and both legs. | | | | FINDINGS: | | (measurements in millimeters of mercury systolic) | | Left Arm: 100 | | | | RIGHT | | Dorsalis Pedis: 127 | | Posterior Tibial: 129 | | MARLYS: 1.29. | | TBI: 1.14 | | Waveforms: Triphasic | | | | LEFT | | Dorsalis Pedis: 129 | | Posterior Tibial: 132 | | MARLYS: 1.32. | | TBI: 1.21 | | Waveforms: Triphasic | | | | IMPRESSION: | | Normal bilateral ankle brachial and toe brachial indices. | | | | Ankle Brachial Indices | | Categorization of Disease | | | | INDEX EXTENT OF DISEASE | | > 1.0 Normal | | .90-.99 Mild / Borderline | | .60-.89 Moderate | | .50-.59 Severe | | < .49 Severe | | | | | | | | Signed by: Daphney Dumont Chet | | Sign Date/Time: 12/24/2019 7:54 AM | + + + +---------+ + + | Performing | Address | City/State/Zipcode | Phone Number | | Organization | | | | + +---------+ + + | [facility] | | | | + +---------+ + + documented in this encounter Visit Diagnoses + + | Diagnosis | + + | PAD (peripheral artery disease) (HCC) - Primary Unspecified disorders of arteries and | | arterioles | + + | ESRD on dialysis (HCC) End stage renal disease | + + documented in this encounter
--- OUTSIDE RECORDS SUMMARY | ~2020-04-05 | XMS | Encounter Summary ---
Demographics + + + | Address | [address] | | | [place] [address] | + + + | Home Phone [...] [place], [place] | | | | | [address] | | + + + + + | Lydia Palm | ECON | [place], [place] | | | | | [address] | | + + + + + | melinda METZ" | ECON | [place], [place] | | | [place] | | [address] | | + + + + + | Jose C Oconnor | ECON | [address] | | | | | [place] | | | | | [address] | | + + + + + Care Team Providers + +------+ + | Care Instructional Writer Name | Role | Phone | + [...] | Radiology | Diagnoses | Tres | [place] [facility] | | | | | End-stage | Shad Raymundo MD | Intra Op [address] | | | | | renal | [address] | | | | | disease | [address] | [place], [place] | | | | | ([facility]) | [address] | [address] | | | | | Procedures | [place] | Phone: | | | | | IR | [place] [address] | [phone] | | | | | Replacement | Phone: | Fax: | | | | | Tunneled | [phone] | [phone] | | | | | Cath | Fax: | | | | | | | [phone] | | +--------+--------+ + + + + [...] | | | disease | [address] | [place], [place] | | | | | (HCC) | [address] | [address] | | | | | Procedures | [facility] Phone: | | | | | IR | [place] [address] | [phone] | | | | | Replacement | Phone: | Fax: | | | | | Tunneled | [phone] | [phone] | | | | | Cath | Fax: | | | | | | | [phone] | | +--------+--------+ + + + + Encounter Details +--------+ + + + + | Date | Type | Department | Care Team | Description | +--------+ + + + + | 11/05/ | Hospital | [facility] | Shad Joshua, | End-stage renal | | 2019 | Encounter | CENTER IR INTRA OP | [address] | disease (HCC) | | | | [address] | [address] | | | | | [place], [place] | [place] [address] | | | | | [address] | [phone] | | | | | [phone] | | | +--------+ + + + [...] You can't be awakened Date Last Reviewed: 08/27/201619990101-4134 [employer]. [address] [place] [address], [place] [address]. All righ ts reserved. This information is [...] at site of tunneled dialysis anjana Sesay technology and engineering teacher at bedside to change dressing. Yesenia Rodriguez RN 11/05/19 1525 Yseenia Pollock RN - 11/05/2019 1:00 PM PSTDischarge instructions including how to care for worthy rgical site and when to call the doctor were reviewed with the patient and mother. All quest ions were answered. Oozing noted at surgical site; electrocardiographic technician came to bedside and dressin g was [...] | | | | | Signed by: Binaka Joshua, Shad | | Sign Date/Time: 11/05/2019 5:21 PM | + + + +---------+ + + | Performing | Address | City/State/[facility] | Phone Number | | Organization | [...] | | | | performed at [facility] | | | | | | [address] [facility];[place], [place] | | | | | | [address] | | | | + + + + + + + + | Specimen | + + | Blood | + + + + + + + | Performing | Address | City/State/Zipcode | Phone Number | | Organization | | | | + + + + + | [facility] | [address] | [place] [address] | [phone] | + + + + + HCG, Serum, Quant (11/05/2019 12:32 PM PST) + + + + + + | Component | Value | Ref Range | Performed | Pathologist | | | | | At | Signature | + + + + + + | hCG Quant, | <4Comment: APPROX | <4 mIU/mL | [facility] | | | Serum | GESTATIONAL AGE..APPROX [...] | | | | | 100 - 91238 - 4 WEEKS | | | | | | . . . . 500 - 153473 - | | | | | | 5 WEEKS . . . . 1000 - | | | | | | 405701 - 6 WEEKS . . . | | | | | | [address] - 1525553 - 8 | | | | | | WEEKS . . . [address] - | | | | | | 4212413 - 3 MONTHS . . . | | | | | | [address] - 470531 Testing | | | | | | performed at [facility];[address] | | | | | | [address];[place] | | | | | | [address] | | | | + + + + + + + + | Specimen | + + | Blood | + + + + + + + | Performing | Address | City/State/Zipcode | Phone Number | | Organization | | | | + + + + + | [facility] | [address] | [place] [address] | [phone] | + + + + + CBC [...] 0.05Comment: Testing | 0.00 - 0.10 | [facility] | | | Absolute | performed at [facility];[address] | [address] | LABORATORY | | | | [address];[place], [place] | | | | | | [address] | | | | + + + + + + + + | Specimen | + + | Blood | + + + + + + + | Performing | Address | City/State/Zipcode | Phone Number | | Organization | | | | + + + + + | [facility] | [address] | [place] [address] | [phone] | + + + + + documented [...]
--- OUTSIDE RECORDS SUMMARY | ~2020-04-05 | XMS | Encounter Summary ---
Demographics + + + | Address | [address] | | | [place] [address] | + + + | Home Phone [...] [place], [place] | | | | | [address] | | + + + + + | Lydia Palm | ECON | [place], [place] | | | | | [address] | | + + + + + | melinda METZ" | ECON | [place], [place] | | | [place] | | [address] | | + + + + + | Jose C Oconnor | ECON | [address] | | | | | [place] | | | | | [address] | | + + + + + Care Team Providers + +------+ + | Care Progressive Care Unit Registered Nurse Name | Role | Phone | + [...] | daily thru | [address] | [place] [address] | | | | | February 23, | [place], [place] | Phone: | | | | | Peritonitis | [address] | [phone] | | | | | Procedures | Phone: | Fax: | | | | | MD | [phone] | [phone] | | | | | MEROPENEM, | Fax: | | | | | | 100 MG MD | [phone] | | | | | | IV [...] | +--------+ + + + + | 02/23/ | Hospital | [facility] | Unknown, | Peritonitis | | 2019 | Encounter | MED CTR OP INFUSION | MD Iris Kinney | associated with | | | | [address] | [phone] | peritoneal dialysis, | | | | [place] | | initial encounter | | | | [address] | | (HCC) (Primary Dx) | | | | [phone] | | | +--------+ + + + [...] + + + | Blood Pressure | 119/78 | 02/23/2019 5:48 PM | | | | | PDT | | + + + + + | Pulse | 83 | 02/23/2019 5:48 PM | | | | | PDT | | + + + + + | Temperature | 36.9 C (98.4 F) | 02/23/2019 5:21 PM | | | | | PDT | | + + + + + | Respiratory Rate | 16 | 02/23/2019 5:48 PM | | | | | [...] as of this encounter Progress Notes Brandin Gray RN - 02/23/2019 5:54 PM PDTFormatting of this note might be different fro m the original. Vitals: 02/23/19 1721 02/23/19 174 BP: 121/66 119/78 Pulse: 82 83 Resp: 16 16 Temp: 36.9 C (98.4 F) TempSrc: Oral Administrations This Visit meropenem (MERREM) 500 mg in sodium chloride 0.9% 50 mL IVPB Admin Date 02/23/2019 Action New Bag Dose 500 mg Rate 50 mL/hr Route Intravenous Administered By Brandin Gray RN Monitored throughout treatment; treatment completed without untoward effects from medicatio n noted. Treatment is complete Verbalizes understanding of plan of care. VS stable. Discharg ed ambulatory to home in stable condition. Electronically signed by: Brandin Gray RN 02/23/2019 17:55 cCoon, Brandin Cartwright RN - 02/23/2019 5:11 PM PDT Vitals: 02/23/19 1748 BP: 119/78 Pulse: 83 Resp: 16 Temp: Ramona Oconnor received into room 441, independent ambulation accompanied by . Stat es here for merrem infusion. Reports no change in condition, plan of care since last MD haroon brock Alert, oriented x 4, cooperative. Electronically signed by: Brandin Gray RN 02/23/2019 17:54 documented in this en counter Plan of [...] 500 mg in | New Bag | 02/24/20 | 500 mg | 50 mL/hr | | | sodium chloride 0.9% 50 mL IVPB | | 19 5:19 | | | | | 500 mg, Intravenous, Administer | | PM PDT | | | | | over 60 Minutes, ONCE, Tue | | | | | | | 02/23/19 at 1720, For 1 dose, | | | | [...]
--- OUTSIDE RECORDS SUMMARY | ~2020-04-05 | XMS | Encounter Summary ---
Demographics + + + | Address | [address] | | | [place] [address] | + + + | Home Phone | | + + + | Preferred Language | Unknown | + + + | Marital Status | | + + + | Yazidism Affiliation | Unknown | + + + | Race | Unknown | + + + | Ethnic Group | Unknown | + + + Author + + + | Author | [facility] | | | and [place] | + + + | Organization | [facility] | | | and [place] | + + + | Address | Unknown | + + + | Phone | Unavailable | + + + Support + + + + + | Name | Relationship | Address | Phone | + + + + + | Lyubov Smalls | ECON | [place], [place] | | | | | [address] | | + + + + + | Lydia Palm | ECON | [place], [place] | | | | | [address] | | + + + + + | melinda METZ" | ECON | [place], [place] | | | [place] | | [address] | | + + + + + | Jose C Oconnor | ECON | [address] | | | | | [place] | | | | | [address] | | + + + + + Care Team Providers + +------+ + | Care Electronics Commodity Manager Name | Role | Phone | + [...] | | | | | ([facility]) | | | | | | [...] + + | 09/03/ | Anesthesia | [facility] | Louisa Ramos, | | | 2019 | [facility] | MD Ebony PETERS | | | | | OPERATING RO[address] | [place] [address] | | | | | [address] | [phone] | | | | | [place], [place] | | | | | | [address] | Sara Arita, | | | | | [phone] | MD Ebony PETERS | | | | | | [place] [address] | | | | | | [phone] | | | | | | | | +--------+ + + + + Anesthesia Record + + + + + | Procedure Name | Responsible | Anesthesia Start | Anesthesia Stop Time | | | Anesthesiologist | Time | | + + + + + | Resection of left | Louisa Ramos MD | 09/03/19 1541 | 09/03/19 8186 | | arm AV graft with | [...] +----+---+ + + | | 1 | [place] | | | | 7 | 43-degrees [...] 09/08/19901 by | | eral | Forearm; [id number]-ref-[id number] catheter | Brandin Gray RN | Fartun [...] 3:45 | | | | | Starting 09/03/19 at 1545, | | PM PDT | [...] | | | | | PRN, Starting 10/25/19 at | | PM PDT | | | | | 1540, Anesthesia Intra-op | | | | | | + +---------+ +---+---+---+ +---+---+ | | | +---+---+ documented in this encounter
--- OUTSIDE RECORDS SUMMARY | ~2020-04-05 | XMS | Encounter Summary ---
Demographics + + + | Address | [address] | | | [place] [address] | + + + | Home Phone [...] + | Lyubov Smalls | ECON | [place], [place] | | | | | [address] | | + + + + + | Lydia Palm | ECON | [place], [place] | | | | | [address] | | + + + + + | melinda METZ" | ECON | [place], [place] | | | reba | | [address] | | + + + + + | Jose C Oconnor | ECON | [place] | | | | | [place] | | | | | [address] | | + + + + + Care Team Providers + +------+ + | Care High Risk Ob Name | Role | Phone | + +------+ + | Juan F Whitley DO | PCP | | + +------+ + Encounter Details +--------+ + + + + | Date | Type | Department | Care Team | Description | +--------+ + + + + | 01/05/ | Hospital | [facility] | Salvador Ruiz, | Diverticulitis; | | 2019 - | Encounter | [facility] | [address] | Hypokalemia; ESRD on | | | | [address] | [place] [address] | peritoneal dialysis | | 01/09/ | | [place], [place] | [phone] | ([facility]); End-stage | | 2018 | | [address] | | renal disease on | | | | [phone] | | peritoneal dialysis | | | | | | (HCC) [...] | Blood Pressure | 105/55 | 01/09/2019 11:29 AM | | | | | PST | | + + + + + | Pulse | 88 | 01/09/2019 11:29 AM | | | | | PST | | + + + + + | Temperature | 36.7 C (98.1 F) | 01/09/2019 11:29 AM | | | | | PST | | + + + + + | Respiratory Rate | 18 | 01/09/2019 11:29 AM | | | | | PST | | + + + + + | Oxygen Saturation | - | - | | + + + + + | Inhaled Oxygen | - | - | | | Concentration | | | | + + + + + | Weight | 86.4 kg (190 lb 7.7 | 01/09/2019 11:29 AM | | | | oz) | PST | | + + + + + | Height | 157.5 cm (5' 2") | 01/09/2019 11:29 AM | | | | | PST | | + + + + + | Body Mass Index | 34.84 | 01/09/2019 11:29 AM | | | | | PST | | + + + + + documented in this encounter Discharge Summaries Chris Smart MD - 01/09/2019 10:14 AM PSTFormatting of this note might be different f rom the original. Discharge Summaries by Chris Smart MD at 01/09/19 1014 Author: Chris Smart MD Service: Hospitalist Author Type: Physician Filed: 01/09/19 1017 Date of Service: 01/09/19 1014 Status: Signed Solar Site Assessment Specialist: Chris Smart MD (Physician) [facility] Service: Hospitalist Physician Discharge Summary Pt: Ramona Oconnor AGE/SEX: 38 y.o. female ROOM: [address] [place] [address] PCP: JUAN F WHITLEY : 1980 Admit [...] LABS: Recent Labs Lab 01/09/19 0546 01/08/19 0501/07/19 0501/06/19 0529 WBC 11.16* 11.96* 9.72 11.15* HGB [...] Refills: 0 Commonly known as: NORVASC ergocalciferol 35668 units capsule Refills: 0 Commonly known as: [...] adjustment of doses and medications. Please rajeev e all the medication to your PCP and show him what medication you are taking so that he can adjust your medications if needed. Follow-Up: [place] [address] [place] [id number] In 1 week Santos Chi MD [facility] Yahir Shi [address] [place] [address] [phone] In 1 week Discharge took more than 35 minutes, to include final examination, discussion of admission, and preparation of prescriptions, instructions for ongoing care, follow up and dictation of summary. Signed: CHRIS SMART MD 01/09/2019 10:14 AM Dictation software, Dealised, used which may contain error for similar sounding words even af ter review. Personal communication requested for any clarification. Portions of this chart may have been copied from previous notes for continuity of care purp ose documented in this encounter Medications at Time [...] Progress Notes Conversion Transaction, Provider Unknown - 01/09/2019 11:07 AM PSTFormatting of this note m ight be different from the original. Nurse Progress Note by Britt Hawkins RN at 01/09/19 110 Author: Britt Hawkins RN Service: (none) Author Type: Registered Nurse Filed: 01/09/191107 Date of Service: 01/09/191106 Status: Signed Solar Site Assessment Specialist: Britt Hawkins RN (Registered Nurse) Discharge teaching done, instructions given. Pt states understanding. Medications discussed , no questions or concerns. Britt Hawkins RN Linden Kincaid MD - 01/09/2019 10:52 AM PSTFormatting of this note might be different from the orig inal. Progress Notes by Linden Monte MD at 01/09/19 105 Author: Linden Monte MD Service: Nephrology Author Type: Physician Filed: 01/12/19 0028 Date of Service: 01/09/19 105 Status: Signed Solar Site Assessment Specialist: Linden Monte MD (Physician) [facility] Service: NEPHROLOGY PD/ Progress Note Ramona Guzmanritchie 38 y.o. [id number] 431/431-[address] [facility] Day: LOS: 4 days Patient with [...] normal. Imagi ng with kidney ultrasound from 12/16/15 showed normal sized kidneys. She initiated BIAS BINDING CUTTER with PD 10/28/15. 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 GERD (gastroesophageal reflux disease) Hypercalcemia 09/07/2017 Hyperphosphatemia 10/28/2015 Hypocalcemia 10/28/2015 Hypokalemia 06/04/2017 Itching 10/28/2015 Metabolic acidosis 10/28/2015 Obesity Peritonitis associated with peritoneal dialysis (HCC) 01/24/2017 Peritonitis due to infected peritoneal dialysis catheter (HCC) 12/08/2018 Secondary hyperparathyroidism (HCC) Uremia 10/28/2015 Past Surgical History Procedure Laterality Date ESOPHAGOGASTRODUODENOSCOPY N/A 09/10/2017 Procedure: ESOPHAGOGASTRODUODENOSCOPY; Surgeon: Beena Peters MD; Location: [facility]; Service: Gastroenterology; Laterality: N/A; PERITONEAL CATHETER INSERTION N/A 10/28/2015 Procedure: LAPAROSCOPIC - PERITONEAL DIALYSIS CATH INSERTION; Surgeon: Mundo Ramos MD; Lo cation: [facility]; Service: Vascular; Laterality: N/A; Family [...] Table: I/O last 3 completed shifts: In: 56595 [P.O.:1250; I.V.:1154; Other:9969] Out: 66589 [Other:24833] Weight change: -0.6 kg (-1 lb 5.2 [...] UNDERSTANDING LINDEN MONTE MD 01/09/2019 JUAN F QUAEMPTS Seen earlier and charting completed later Dictation software, Dealised, used which may contain error for similar sounding words even af ter review. Personal communication requested for any clarification. Portions of my notes may have been carried over for continuity of care. onversion Transaction, Provider Unknown - 01/09/2019 7:06 AM PSTFormatting of this note might be different from t he original. Nurse Progress Note by Kathie Harvey RN at 01/09/19705 Author: Kathie Harvey RN Service: (none) Author Type: Registered Nurse Filed: 01/09/19705 Date of Service: 01/09/19705 Status: Signed Solar Site Assessment Specialist: Katihe Harvey RN (Registered Nurse) Patient bed in lowest position. Call light is within reach. Patient needs are met. 12-ho ur End of Shift Chart Check completed. Kathie Harvey RN 01/09/2019 7:06 AM onver patric Transaction, Provider Unknown - 01/08/2019 6:38 PM PST Nurse Progress Note by Judit Mcgraw RN at 01/08/191837 Author: Judit Mcgraw RN Service: (none) Author Type: Registered Nurse Filed: 01/08/191837 Date of Service: 01/08/191837 Status: Signed Solar Site Assessment Specialist: Judit Mcgraw RN (Registered Nurse) End of shift chart check complete. Judit Mcgraw RN 01/08/2019 6:38 PM Linden Kincaid MD - 01/08/2019 4:59 PM PSTFormatting of this note might be different from the orig inal. Progress Notes by Linden Monte MD at 01/08/191658 Author: Linden Monte MD Service: Nephrology Author Type: Physician Filed: 01/08/19 3132 Date of Service: 01/08/191658 Status: Signed Solar Site Assessment Specialist: Linden Monte MD (Physician) [facility] Service: NEPHROLOGY PD/ Progress Note Ramona Oconnor 38 y.o. [id number] 431/431-[address] [facility] Day: LOS: 3 days Patient with [...] 10/25/15 showed normal sized kidneys. She initiated BIAS BINDING CUTTER with PD 10/28/15. 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 GERD (gastroesophageal reflux disease) Hypercalcemia 09/07/2017 Hyperphosphatemia 10/28/2015 Hypocalcemia 10/28/2015 Hypokalemia 06/04/2017 Itching 10/28/2015 Metabolic acidosis 10/28/2015 Obesity Peritonitis associated with peritoneal dialysis (HCC) 01/24/2017 Peritonitis due to infected peritoneal dialysis catheter (HCC) 12/08/2018 Secondary hyperparathyroidism (HCC) Uremia 10/28/2015 Past Surgical History Procedure Laterality Date ESOPHAGOGASTRODUODENOSCOPY N/A 09/10/2017 Procedure: ESOPHAGOGASTRODUODENOSCOPY; Surgeon: Beena Peters MD; Location: [facility]; Service: Gastroenterology; Laterality: N/A; PERITONEAL CATHETER INSERTION N/A 10/28/2015 Procedure: LAPAROSCOPIC - PERITONEAL DIALYSIS CATH INSERTION; Surgeon: Mundo Ramos MD; Lo cation: [facility]; Service: Vascular; Laterality: N/A; Family [...] Table: I/O last 3 completed shifts: In: 20690 [P.O.:1600; I.V.:1943; Other:] Out: [Other:] Weight change: [...] DETAIL, VERBALIZ ES UNDERSTANDING LINDEN MONTE MD 01/08/2019 JUAN F WHITLEY Seen earlier and charting completed later Dictation software, Dealised, used which may contain error for similar sounding words even af ter review. Personal communication requested for any clarification. Portions of my notes may have been carried over for continuity of care. almarko, Chris Chavez MD - 01/08/2019 10:54 AM PST Progress Notes by Chris Smart MD at 01/08/19 1054 Author: Chris Smart MD Service: Hospitalist Author Type: Physician Filed: 01/08/19 5482 Date of Service: 01/08/19 1054 Status: Signed Solar Site Assessment Specialist: Chris Smart MD (Physician) [facility] Service: Hospitalist Progress Note Pt: Ramona Oconnor AGE/SEX: 38 y.o. female ROOM: [facility]- : 1980 PCP: JUAN F WHITLEY ADMIT [...] 01/08/19 0650 Gross per 24 hour Intake 30189 ml Output 69112 ml Net 1092 ml Patient Vitals for [...] Not suicida l LABS: Recent Labs Lab 01/08/19 0501/07/19 0518 01/06/19 0529 01/05/19 0542 WBC 11.96* 9.72 11.15* 14.70* HGB 9.4* 10.2* 11.0* 12.3 HCT 28.3* 30.4* 33.7* 37.3 PLT 197 225 267 311 NEUTOPHILPCT 80.70 -- 75.00 78.88 MONOPCT 5.54 -- 6.73 8.10 Recent Labs Lab 01/08/19 0526 01/07/19 1738 01/07/19 0518 01/06/19 [...] Leukocytosis Anemia in ESRD (end-stage renal disease) ([facility]) Left lower quadrant pain Hyperphosphatemia Abnormal EKG Elevated troponin Secondary hyperparathyroidism ([facility]) Resolved Problems: * No resolved hospital problems. [...] lower quadrant pain. I will [facility] w [facility] antibiotics for now. White cell count has improved. Active Problems: Hypokalemia Her potassium level has improved. Gastroesophageal reflux disease without esophagitis I will continue with PPI. ESRD on peritoneal dialysis She is on peritoneal dialysis. Right ovarian cyst Follow-up as outpatient. Anemia in ESRD (end-stage renal disease) ([facility]) I will continue to monitor Abnormal EKG [...] MD, FACP 01/08/2019 10:54 AM Dictation software, Dealised, used which may contain error for similar sounding words even af ter review. Personal communication requested for any clarification. Portions of this chart may have been copied from previous notes for continuity of care purp ose onversion Transac tion, Provider Unknown - 01/08/2019 6:39 AM PSTFormatting of this note might be different f rom the original. Nurse Progress Note by Felicitas Conklin RN at 01/08/19638 Author: Felicitas Conklin RN Service: (none) Author Type: Registered Nurse Filed: 01/08/19638 Date of Service: 01/08/19638 Status: Signed Solar Site Assessment Specialist: Felicitas Conklin RN (Registered Nurse) End of shift chart check complete. onver patric Transaction, Provider Unknown - 01/07/2019 6:24 PM PST Nurse Progress Note by Yasmeen Clemons RN at 01/07/191823 Author: Yasmeen Clemons RN Service: (none) Author Type: Registered Nurse Filed: 01/07/191824 Date of Service: 01/07/191823 Status: Signed Solar Site Assessment Specialist: Yasmeen Clemons RN (Registered Nurse) End of shift review completed. YASMEEN CLEMONS RN 01/07/2019 6:25 PM Linden Kincaid MD - 01/07/2019 6:00 PM PSTFormatting of this note might be different from the orig inal. Progress Notes by Linden Monte MD at 01/07/191799 Author: Linden Monte MD Service: Nephrology Author Type: Physician Filed: 01/12/19 0023 Date of Service: 01/07/19 1800 Status: Signed Solar Site Assessment Specialist: Linden Monte MD (Physician) [facility] Service: NEPHROLOGY PD/ Progress Note Ramona Oconnor 38 y.o. [id number] 431/431-1 female [facility]: LOS: 2 days Patient with [...] 10/25/15 showed normal sized kidneys. She initiated BIAS BINDING CUTTER with PD 10/28/15. 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 GERD (gastroesophageal reflux disease) Hypercalcemia 09/07/2017 Hyperphosphatemia 10/28/2015 Hypocalcemia 10/28/2015 Hypokalemia 06/04/2017 Itching 10/28/2015 Metabolic acidosis 10/28/2015 Obesity Peritonitis associated with peritoneal dialysis (HCC) 01/24/2017 Peritonitis due to infected peritoneal dialysis catheter (HCC) 12/08/2018 Secondary hyperparathyroidism (HCC) Uremia 10/28/2015 Past Surgical History Procedure Laterality Date ESOPHAGOGASTRODUODENOSCOPY N/A 09/10/2017 Procedure: ESOPHAGOGASTRODUODENOSCOPY; Surgeon: Beena Peters MD; Location: [facility]; Service: Gastroenterology; Laterality: N/A; PERITONEAL CATHETER INSERTION N/A 10/28/2015 Procedure: LAPAROSCOPIC - PERITONEAL DIALYSIS CATH INSERTION; Surgeon: Mundo Ramos MD; Lo cation: [facility]; Service: Vascular; Laterality: N/A; Family [...] Table: I/O last 3 completed shifts: In: 79199 [P.O.:3150; I.V.:1015; Other:29113] Out: 19291 [Other:75323] Weight change: Examination: Family at bedside APPEARANCE: [...] DETAIL, VERBALIZ ES UNDERSTANDING LINDEN MONTE MD 01/07/2019 JUAN F CAICEDOMPGORAN Seen earlier and charting completed later Dictation software, Dealised, used which may contain error for similar sounding words even af ter review. Personal communication requested for any clarification. Portions of my notes may have been carried over for continuity of care. onversion Transaction, Provider Unknown - 01/07/2019 11:59 AM PSTFormatting of this note might be different from t he original. Case Management by Ada Gonzalez RN at 01/07/19 7195 Author: Ada Gonzalez RN Service: (none) Author Type: Registered Nurse Filed: 01/07/19 1304 Date of Service: 01/07/19 1150 Status: Signed Solar Site Assessment Specialist: Ada Gonzalez RN (Registered Nurse) 01/07/19 4423 Discharge Planning Evaluation Admitting Diagnosis diverticulitis Readmission Yes-within 14 days Reason for readmission new infection Last discharge disposition Home Needs met at last discharge Yes Picked up discharge Rx medications Yes Started prescribed DC meds Yes Followed up with primary or specialty provider Yes Understood discharge instructions Yes Assistance available Yes Concerns for meeting needs No Living Arrangements Spouse/significant other Support Systems Spouse/significant other Type of Residence Private residence House type House-1 story Steps to enter 1 Bathrooms on 1st Floor 1-Full Independent with ADL's Yes Independent with Mobility Yes Home Care Services No Mental Status Oriented Anticipated Discharge Plan Post Acute Care Needs None at this time Resources Financial concerns No Transportation issues No Patient/Family concerns No Prescription Plan Yes Anticipated Disposition Facility Type Home Met with patient at bedside to discuss discharge planning and needs. Introduced myself and explained my role in discharge planning. Ramona is a 38 year old female who was admitted for diverticulitis. She was just discharged from [facility] on 12/27/18 for peritonitis. Patient has ESRD and get peritoneal dialysis. Denies use of home oxygen, blood thinners, or home care services. She is a member of the [facility]. Her contact there is Lorna at [phone]. She also has a CM with [employer] (Clarita [phone]) Patient's PCP is: JUAN F WHITLEY Patient's insurance: [employer]; Medicare Coverage concerns: no Medication coverage/concerns: no concerns Community resources utilized / needed: TBD Assistance in transportation: spouse to transport Identification of any specific education / training: TBD Barriers to Discharge / Alternative housing needed: not at this time Anticipated DCP: home ADA GONZALEZ RN Case Management [phone] Samir, Chris Chavez MD - 01/07/2019 9:50 AM PST Progress Notes by Chris Smart MD at 01/07/19949 Author: Chris Smart MD Service: Hospitalist Author Type: Physician Filed: 01/07/1954 Date of Service: 01/07/19949 Status: Signed Solar Site Assessment Specialist: Chris Smart MD (Physician) [facility] Service: Hospitalist Progress Note Pt: Ramona Oconnor AGE/SEX: 38 y.o. female ROOM: [address] [place] [address] : 1980 PCP: JUAN F WHITLEY ADMIT [...] 01/07/19 0645 Gross per 24 hour Intake 92456 ml Output 71635 ml Net 2724 ml Patient Vitals for [...] Not suicida l LABS: Recent Labs Lab 01/07/19 0518 01/06/19 0529 01/05/19 0542 01/05/19 0051 WBC 9.72 11.15* 14.70* 15.65* HGB 10.2* 11.0* 12.3 12.7 HCT 30.4* 33.7* 37.3 37.4 PLT 225 267 311 337 NEUTOPHILPCT -- 75.00 78.88 81.32 MONOPCT -- 6.73 8.10 7.85 Recent Labs Lab 01/07/19 0501/06/19 0529 01/05/19 0542 01/05/19 0051 NA 134* 134* 138 [...] PHOS 8.8 (H) 01/06/2019 Recent Labs Lab 01/07/19 0518 01/06/19 0529 01/05/19 0542 MG 2.1 2.3 2.4 [...] MD, FACP 01/07/2019 9:50 AM Dictation software, Dealised, used which may contain error for similar sounding words even af ter review. Personal communication requested for any clarification. Portions of this chart may have been copied from previous notes for continuity of care purp ose onversion Transac tion, Provider Unknown - 01/07/2019 6:00 AM PSTFormatting of this note might be different f rom the original. Nurse Progress Note by Felicitas Conklin RN at 01/07/19599 Author: Felicitas Conklin RN Service: (none) Author Type: Registered Nurse Filed: 01/07/19599 Date of Service: 01/07/19599 Status: Signed Solar Site Assessment Specialist: Felicitas Conklin RN (Registered Nurse) End of shift chart check complete. onver patric Transaction, Provider Unknown - 01/06/2019 7:12 PM PST Nurse Progress Note by Adonis Bonner RN at 01/06/191911 Author: Adonis Bonner RN Service: Nephrology Author Type: Registered Nurse Filed: 01/06/191913 Date of Service: 01/06/191911 Status: Signed Solar Site Assessment Specialist: Adonis Bonner RN (Registered Nurse) PER PT SHE TOOK A SHOWER DURING THE DAY TODAY, AND AFTER THAT HER CHANGED THE DRESS ING ON THE PD CATH EXIT SITE. I REDRESSED THE PD CATH EXIT SITE PER POLICY. onver patric Transaction, Provider Unknown - 01/06/2019 6:02 PM PST Nurse Progress Note by Yasmeen Clemons RN at 01/06/191801 Author: Yasmeen Clemons RN Service: (none) Author Type: Registered Nurse Filed: 01/06/191801 Date of Service: 01/06/191801 Status: Signed Solar Site Assessment Specialist: Yasmeen Clemons RN (Registered Nurse) End of shift review completed. YASMEEN CLEMONS RN 01/06/2019 6:02 PM Chris Dawson MD - 01/06/2019 12:07 PM PST Progress Notes by Chris Smart MD at 01/06/191206 Author: Chris Smart MD Service: Hospitalist Author Type: Physician Filed: 01/06/19 1210 Date of Service: 01/06/19 120 Status: Signed Solar Site Assessment Specialist: Chris Smart MD (Physician) [facility] Service: Hospitalist Progress Note Pt: Ramona Oconnor AGE/SEX: 38 y.o. female ROOM: [address] [place] [address] : 1980 PCP: JUAN F WHITLEY ADMIT [...] 01/06/19 0740 Gross per 24 hour Intake 87551 ml Output 24073 ml Net 425 ml Patient Vitals for [...] suicida l LABS: Recent Labs Lab 01/06/19 0529 01/05/19 0542 01/05/19 0051 WBC 11.15* 14.70* 15.65* HGB 11.0* 12.3 12.7 HCT 33.7* 37.3 37.4 PLT 267 311 337 NEUTOPHILPCT 75.00 78.88 81.32 MONOPCT 6.73 8.10 7.85 Recent Labs Lab 01/06/19 0529 01/05/19 0542 01/05/19 0051 NA 134* 138 143 K 2.7* 2.9* 2.8* CL 97* 96* 99 CO2 23 23 23 BUN 39* 41* 37* CREATININE 15.2* 16.7* 15.32* PROT 6.0* -- 6.8 BILITOT 0.4 -- 0.4 ALT 50 -- 53 AST 26 -- 55* Phosphorus: Lab Results Component Value Date PHOS 8.8 (H) 01/06/2019 Recent Labs Lab 01/06/19 0529 01/05/19 0542 01/05/19 0051 MG 2.3 2.4 2.1 Recent Labs Lab 01/05/19 0542 INR [...] MD, FACP 01/06/2019 12:07 PM Dictation software, Dealised, used which may contain error for similar sounding words even af ter review. Personal communication requested for any clarification. Portions of this chart may have been copied from previous notes for continuity of care purp ose inden Monte MD - 01/06/2019 12:03 PM PST Progress Notes by Linden Monte MD at 01/06/19 1203 Author: Linden Monte MD Service: Nephrology Author Type: Physician Filed: 01/06/19 1207 Date of Service: 01/06/191202 Status: Signed Solar Site Assessment Specialist: Linden Monte MD (Physician) [facility] Service: NEPHROLOGY PD/ Progress Note Ramona Oconnor 38 y.o. [id number] 431/431-[address] [facility] Day: LOS: 1 day Patient with [...] 10/25/15 showed normal sized kidneys. She initiated BIAS BINDING CUTTER with PD 10/28/15. 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 GERD (gastroesophageal reflux disease) Hypercalcemia 09/07/2017 Hyperphosphatemia 10/28/2015 Hypocalcemia 10/28/2015 Hypokalemia 06/04/2017 Itching 10/28/2015 Metabolic acidosis 10/28/2015 Obesity Peritonitis associated with peritoneal dialysis (HCC) 01/24/2017 Peritonitis due to infected peritoneal dialysis catheter (HCC) 12/08/2018 Secondary hyperparathyroidism (HCC) Uremia 10/28/2015 Past Surgical History Procedure Laterality Date ESOPHAGOGASTRODUODENOSCOPY N/A 09/10/2017 Procedure: ESOPHAGOGASTRODUODENOSCOPY; Surgeon: Beena Peters MD; Location: [facility]; Service: Gastroenterology; Laterality: N/A; PERITONEAL CATHETER INSERTION N/A 10/28/2015 Procedure: LAPAROSCOPIC - PERITONEAL DIALYSIS CATH INSERTION; Surgeon: Mundo Ramos MD; Lo cation: [facility]; Service: Vascular; Laterality: N/A; Family [...] kg (0 lb) Examination: Family/ floor rn yasmeen at bedside APPEARANCE: The patient is lying [...] UNDERSTANDING LINDEN MONTE MD 01/06/2019 JUAN F QUAEMPTS Seen earlier and charting completed later Dictation software, Dealised, used which may contain error for similar sounding words even af ter review. Personal communication requested for any clarification. Portions of my notes may have been carried over for continuity of care. onversion Transaction, Provider Unknown - 01/06/2019 6:06 AM PSTFormatting of this note might be different from t he original. Nurse Progress Note by Felicitas Conklin RN at 01/06/19605 Author: Felicitas Conklin RN Service: (none) Author Type: Registered Nurse Filed: 01/06/19605 Date of Service: 01/06/19605 Status: Signed Solar Site Assessment Specialist: Felicitas Conklin RN (Registered Nurse) End of shift chart check complete. onver patric Transaction, Provider Unknown - 01/05/2019 7:01 PM PST Nurse Progress Note by Misty Martínez RN at 01/05/191900 Author: Misty Martínez RN Service: (none) Author Type: Registered Nurse Filed: 01/05/191900 Date of Service: 01/05/191900 Status: Signed Solar Site Assessment Specialist: Misty Martínez RN (Registered Nurse) Chart check complete. onver patric Transaction, Provider Unknown - 01/05/2019 1:39 PM PST Nurse Progress Note by Misty Martínez RN at 01/05/191338 Author: Misty Martínez RN Service: (none) Author Type: Registered Nurse Filed: 01/05/19 1340 Date of Service: 01/05/191338 Status: Signed Solar Site Assessment Specialist: Misty Martínez RN (Registered Nurse) Report received from MICHELLE Pompa. Assumed care of the patient at this time. Per Dr. Berry Pompa is aware of soft BP's. Encourage oral intake. MISTY MARTÍNEZ RN onver patric Transaction, Provider Unknown - 01/05/2019 6:20 AM PST Pharmacy Note by Felicitas Bender RPH at 01/05/19619 Author: Felicitas Bender RPH Service: Pharmacy Author Type: Pharmacist Filed: 01/05/19619 Date of Service: 01/05/19619 Status: Signed Solar Site Assessment Specialist: Felicitas Bender RPH (Pharmacist) Clinical Pharmacy Note: Renal Monitoring Ht Readings from Last 1 Encounters: 12/24/18 1.575 m (5' 2") Wt Readings from Last 1 Encounters: 01/05/19 74.4 kg (164 lb) Serum creatinine: 15.32 mg/dL (H) 01/05/1950 Estimated creatinine clearance: 4.6 mL/min (A) ESRD requiring PD Pharmacy dosing for renal function per Dr. Ruiz At this time no renal dose adjustments are required. No changes made today. Pharmacy will c ontinue monitoring patient for appropriate dosing per renal function. Felicitas Bender RPh 01/05/2019 6:19 AM onver patric Transaction, Provider Unknown - 01/05/2019 6:19 AM PST Pharmacy Note by Felicitas Bender RPH at 01/05/19618 Author: Felicitas Bender RPH Service: Pharmacy Author Type: Pharmacist Filed: 01/05/19618 Date of Service: 01/05/19618 Status: Signed Solar Site Assessment Specialist: Felicitas Bender RPH (Pharmacist) Zosyn Traditional Infusion Initial Consult Ramona Oconnor 38 y.o. female Estimated Creatinine Clearance: 4.6 mL/min (A) (by C-G formula based on SCr of 15.32 mg/dL (H)). NEUTROPHILS ABS Date Value Ref Range Status 01/05/2019 12.72 (H) 1.90 - 7.40 K/uL Final Neutrophils Absolute Date Value Ref Range Status 12/25/2018 12.22 (H) 1.90 - 7.40 K/uL Final CREATININE Date Value Ref Range Status 01/05/2019 15.32 (H) 0.50 - 1.00 mg/dL Final Patient has ESRD requiring PD. Patient is a transfer from [facility] ED. Patient receiv ed Zosyn while at [facility] at 01/04 at 17:54 per transfer paperwork. Due to patient's r enal dysfunction requiring PD, she is not a candidate for extended infusion Zosyn dosing. Will initiate Zosyn 2.25g q12H per renal protocol. Pharmacy will continue monitoring patient for appropriate dosing per renal function. 01/05/2019 6:16 AM Pharmacist: Felicitas Bender docume nted in this encounter Plan of Treatment Not on filedocumented as of this encounter Procedures + +--------+ + + + | Procedure Name | Priori | Date/Time | Associated Diagnosis | Comments | | | ty | | | | + +--------+ + + + | EXTERNAL LAB: CBC | Routin | 01/09/2019 | | Results for this | | | e | 5:46 AM | | procedure are in the | | | | PST | | results section. | + +--------+ + + + | MAGNESIUM | Routin | 01/09/2019 | | Results for this | | | e | 5:46 AM | | procedure are in the | | | | PST | | results section. | + +--------+ + + + | BASIC METABOLIC | Routin | 01/09/2019 | | Results for this | | PANEL | e | 5:46 AM | | procedure are in the | | | | PST | | results section. | + +--------+ + + + | EXTERNAL LAB: CBC | Routin | 01/08/2019 | | Results for this | | | e | 5:26 AM | | procedure are in the | | | | PST | | results section. | + +--------+ + + + | MAGNESIUM | Routin | 01/08/2019 | | Results for this | | | e | 5:26 AM | | procedure are in the | | | | PST | | results section. | + +--------+ + + + | BASIC METABOLIC | Routin | 01/08/2019 | | Results for this | | PANEL | e | 5:26 AM | | procedure are [...] | EXTERNAL LAB: CBC | Routin | 01/07/2019 | | Results for this | | | e | 5:18 AM | | procedure are in the | | | | PST | | results section. | + +--------+ + + + | MAGNESIUM | Routin | 01/07/2019 | | Results for this | | | e | 5:18 AM | | procedure are in the | | | | PST | | results section. | + +--------+ + + + | COMPREHENSIVE | Routin | 01/07/2019 | | Results for this | | METABOLIC PANEL | e | 5:18 AM | | procedure are in the | | | | PST | | results section. | + +--------+ + + + | EXTERNAL LAB: CBC | Routin | 01/06/2019 | | Results for this | | | e | 5:29 AM | | procedure are in the | | | | PST | | results section. | + +--------+ + + + | PROCALCITONIN, SERUM | Routin | 01/06/2019 | | Results for this | | | e | 5:29 AM | | procedure are in the | | | | PST | | results section. | + +--------+ + + + | C-REACTIVE PROTEIN | Routin | 01/06/2019 | | Results for this | | | e | 5:29 AM | | procedure are in the | | | | PST | | results section. | + +--------+ + + + | PHOSPHORUS | Routin | 01/06/2019 | | Results for this | | | e | 5:29 AM | | procedure are in the | | | | PST | | results section. | + +--------+ + + + | MAGNESIUM | Routin | 01/06/2019 | | Results for this | | | e | 5:29 AM | | procedure are in the | | | | PST | | results section. | + +--------+ + + + | COMPREHENSIVE | Routin | 01/06/2019 | | Results for this | | METABOLIC PANEL | e | 5:29 AM | | procedure are in the | | | | PST | | results section. | + +--------+ + + + | TROPONIN I | Routin | 01/05/2019 | | Results for this | | | e | 11:47 AM | | procedure are in the | | | | PST | | results section. | + +--------+ + + + | EXTERNAL LAB: CBC | Routin | 01/05/2019 | | Results [...] + | TROPONIN I | Routin | 01/05/2019 | | Results for this | | | e | 5:42 AM | | procedure are in the | | | | PST | | results section. | + +--------+ + + + | PROTIME INR | Routin | 01/05/2019 | | Results for this | | | e | 5:42 AM | | procedure are in the | | | | PST | | results section. | + +--------+ + + + | PHOSPHORUS | Routin | 01/05/2019 | | Results [...] this | | PANEL | e | 5:42 AM | | procedure are in the | | | | PST | | results section. | + +--------+ + + + | ECG 12 LEAD | Routin | 01/05/2019 | | Results for this | | | e | 12:55 AM | | procedure are in the | | | | PST | | results section. | + +--------+ + + + | EXTERNAL LAB: CBC | Routin | 01/05/2019 | | Results for this | | | e | 12:51 AM | | procedure are in the | | | | PST | | results section. | + +--------+ + + + | TROPONIN I | Routin | 01/05/2019 | | Results for this | | | e | 12:51 AM | | procedure are in the | | | | PST | | results section. | + +--------+ + + + | PHOSPHORUS | Routin | 01/05/2019 | | Results for this | | | e | 12:51 AM | | procedure are in the | | | | PST | | results section. | + +--------+ + + + | MAGNESIUM | Routin | 01/05/2019 | | Results for this | | | e | 12:51 AM | | procedure are in the | | | | PST | | results section. | + +--------+ + + + | COMPREHENSIVE | Routin | 01/05/2019 | | Results for this | | METABOLIC PANEL | e | 12:51 AM | | procedure are in the | | | | PST | | results section. | + +--------+ + + + documented in this encounter Results External Lab: [facility] (01/09/2019 5:46 AM PST) + + + + + + | Component | Value | Ref Range | Performed | Pathologist | | | | | At | Signature | + + + + + + | WBC | 11.16 (H) | 3.80 - 11.00 | EXTERNAL | | | | | K/uL | LAB | | + + + + + + | Red Blood | 3.32 (L) | 3.70 - 5.10 | EXTERNAL | | | Cells | | M/uL | LAB | | | Counted | | | | | + + + + + + | Hemoglobin | 10.0 (L) | 11.3 - 15.5 | EXTERNAL | | | | | g/dL | LAB | | + + + + + + | Hematocrit, | 30.2 (L) | 34.0 - 46.0 % | EXTERNAL | | | POC | | | LAB | | + + + + + + | MCV | 91.1 | 80.0 - 100.0 fl | EXTERNAL | | | | | | LAB | | + + + + + + | MCH | 30.3 | 27.0 - 34.0 pg | EXTERNAL | | | | | | LAB | | + + + + + + | MCHC | 33.2 | 32.0 - 35.5 | EXTERNAL | | | | | g/dL | LAB | | + + + + + + | RDW-CV | 51.6 | 37 - 53 fl | EXTERNAL | | | | | | LAB | | + + + + + + | Platelet | 201 | 150 - 400 K/uL | EXTERNAL | | | Count | | | LAB | | | Plasma | | | | | + + + + + + | MPV | 9.5 | fl | EXTERNAL | | | | | | LAB | | + + + + + + | Differentia | AUTOMATED | | EXTERNAL | | | l Type | | | LAB | | + + + + + + | % Segmented | 77.04 | % | EXTERNAL | | | | | | LAB | | | Neutrophils | | | | | + + + + + + | % | 13.84 | % | EXTERNAL | | | Lymphocytes | | | LAB | | + + + + + + | % Monocytes | 6.01 | % | EXTERNAL | | | | | | LAB | | + + + + + + | % | 2.62 | % | EXTERNAL | | | Eosinophils | | | LAB | | + + + + + + | % Basophils | 0.49 | % | EXTERNAL | | | | | | LAB | | + + + + + + | Absolute | 8.59 (H) | 1.90 - 7.40 | EXTERNAL | | | Segmented | | K/uL | LAB | | | Neutrophils | | | | | + + + + + + | Absolute | 1.54 | 1.00 - 3.90 | EXTERNAL | | | Lymphocytes | | K/uL | LAB | | + + + + + + | Absolute | 0.67 | 0.00 - 0.80 | EXTERNAL | | | Monocytes | | K/uL | LAB | | + + + + + + | Absolute | 0.29 | 0.00 - 0.50 | EXTERNAL | | | Eosinophils | | K/uL | LAB | | + + + + + + | Absolute | 0.06Comment: Testing | 0.00 - 0.10 | EXTERNAL | | | Basophils | performed at [facility], [address] | [address] | LAB | | | | [address], | | | | | | [place] [address] | | | | + + + + + + + + | Specimen | + + | Blood specimen | | (specimen) | + + + +---------+ + + | Performing | Address | City/State/Zipcode | Phone Number | | Organization | | | | + +---------+ + + | EXTERNAL LAB | | | | + +---------+ + + Magnesium (01/09/2019 5:46 AM PST) + + + + + + | Component | Value | Ref Range | Performed | Pathologist | | | | | At | Signature | + + + + + + | Magnesium | 2.0Comment: Testing | 1.7 - 2.4 mg/dL | EXTERNAL | | | | performed at [facility], [address] | | LAB | | | | [address], | | | | | | [place] [address] | | | | + + + [...] + +---------+ + + Basic Metabolic Panel (01/09/2019 5:46 AM PST) + + + + + + | Component | Value | Ref Range | Performed | Pathologist | | | | | At | Signature | + + + + + + | Na | 140 | 135 - 145 | EXTERNAL | | | | | mmol/L | LAB | | + + + + + + | K | 4.2 | 3.5 - 4.9 | EXTERNAL | | | | | mmol/L | LAB | | + + + + + + | Cl | 105 | 99 - 109 mmol/L | EXTERNAL [...] + + + + | Glucose, | 70 | 65 - 99 mg/dL | EXTERNAL | | | Fasting | | | LAB | | + + + + + + | BUN | 32 (H) | 8 - 25 mg/dL | EXTERNAL | | | | | | LAB | | + + + + + + | Creatinine | 13.2 (H) | 0.50 - 1.00 | EXTERNAL | | | | | mg/dL | LAB | | + + + + + + | BUN/Creatin | 2 | | EXTERNAL | | | ine Ratio | | | LAB | | + + + + + + | Calcium | 7.1 (L) | 8.5 - 10.5 | EXTERNAL [...] | | | | | performed at [facility], [address] | | | | | | [address], | | | | | | [place] [address] | | | | + + + + + + + + | Specimen | + + | Blood specimen | | (specimen) | + + + +---------+ + + | Performing | Address | City/State/Zipcode | Phone Number | | Organization | | | | + +---------+ + + | EXTERNAL LAB | | | | + +---------+ + + External Lab: [facility] (01/08/2019 5:26 AM PST) + + + + + + | Component | Value | Ref Range | Performed | Pathologist | | | | | At | Signature | + + + + + + | WBC | 11.96 (H) | 3.80 - 11.00 | EXTERNAL | | | | | K/uL | LAB | | + + + + + + | Red Blood | 3.13 (L) | 3.70 - 5.10 | EXTERNAL | | | Cells | | M/uL | LAB | | | Counted | | | | | + + + + + + | Hemoglobin | 9.4 (L) | 11.3 - 15.5 | EXTERNAL | | | | | g/dL | LAB | | + + + + + + | Hematocrit, | 28.3 (L) | 34.0 - 46.0 % | EXTERNAL | | | POC | | | LAB | | + + + + + + | MCV | 90.6 | 80.0 - 100.0 fl | EXTERNAL | | | | | | LAB | | + + + + + + | MCH | 30.2 | 27.0 - 34.0 pg | EXTERNAL | | | | | | LAB | | + + + + + + | MCHC | 33.3 | 32.0 - 35.5 | EXTERNAL | | | | | g/dL | LAB | | + + + + + + | RDW-CV | 49.9 | 37 - 53 fl | EXTERNAL | | | | | | LAB | | + + + + + + | Platelet | 197 | 150 - 400 K/uL | EXTERNAL | | | Count | | | LAB | | | Plasma | | | | | + + + + + + | MPV | 9.7 | fl | EXTERNAL | | | | | | LAB | | + + + + + + | Differentia | AUTOMATED | | EXTERNAL | | | l Type | | | LAB | | + + + + + + | % Segmented | 80.70 | % | EXTERNAL | | | | | | LAB | | | Neutrophils | | | | | + + + + + + | % | 11.40 | % | EXTERNAL | | | Lymphocytes | | | LAB | | + + + + + + | % Monocytes | 5.54 | % | EXTERNAL | | | | | | LAB | | + + + + + + | % | 1.99 | % | EXTERNAL | | | Eosinophils | | | LAB | | + + + + + + | % Basophils | 0.37 | % | EXTERNAL | | | | | | LAB | | + + + + + + | Absolute | 9.66 (H) | 1.90 - 7.40 | EXTERNAL | | | Segmented | | K/uL | LAB | | | Neutrophils | | | | | + + + + + + | Absolute | 1.36 | 1.00 - 3.90 | EXTERNAL | | | Lymphocytes | | K/uL | LAB | | + + + + + + | Absolute | 0.66 | 0.00 - 0.80 | EXTERNAL | | | Monocytes | | K/uL | LAB | | + + + + + + | Absolute | 0.24 | 0.00 - 0.50 | EXTERNAL | | | Eosinophils | | K/uL | LAB | | + + + + + + | Absolute | 0.05Comment: Testing | 0.00 - 0.10 | EXTERNAL | | | Basophils | performed at [facility], [address] | [address] | LAB | | | | [address], | | | | | | [place] [address] | | | | + + + + + + + + | Specimen | + + | Blood specimen | | (specimen) | + + + +---------+ + + | Performing | Address | City/State/Zipcode | Phone Number | | Organization | | | | + +---------+ + + | EXTERNAL LAB | | | | + +---------+ + + Magnesium (01/08/2019 5:26 AM PST) + + + + + + | Component | Value | Ref Range | Performed | Pathologist | | | | | At | Signature | + + + + + + | Magnesium | 2.0Comment: Testing | 1.7 - 2.4 mg/dL | EXTERNAL | | | | performed at [facility], [address] | | LAB | | | | [address], | | | | | | [place] [address] | | | | + + + [...] + +---------+ + + Basic Metabolic Panel (01/08/2019 5:26 AM PST) + + + + + + | Component | Value | Ref Range | Performed | Pathologist | | | | | At | Signature | + + + + + + | Na | 137 | 135 - 145 | EXTERNAL | | | | | mmol/L | LAB | | + + + + + + | K | 3.4 (L) | 3.5 - 4.9 | EXTERNAL | | | | | mmol/L | LAB | | + + + + + + | Cl | 102 | 99 - 109 mmol/L | EXTERNAL [...] + + + + | Glucose, | 114 (H) | 65 - 99 mg/dL | EXTERNAL | | | Fasting | | | LAB | | + + + + + + | BUN | 33 (H) | 8 - 25 mg/dL | EXTERNAL | | | | | | LAB | | + + + + + + | Creatinine | 13.3 (H) | 0.50 - 1.00 | EXTERNAL | | | | | mg/dL | LAB | | + + + + + + | BUN/Creatin | 2 | | EXTERNAL | | | ine Ratio | | | LAB | | + + + + + + | Calcium | 7.0 (L) | 8.5 - 10.5 | EXTERNAL [...] | | | | | performed at [facility], [address] | | | | | | [address], | | | | | | [place] [address] | | | | + + + [...] + +---------+ + + Basic Metabolic Panel (01/07/2019 5:38 PM PST) + + + + + + | Component | Value | Ref Range | Performed | Pathologist | | | | | At | Signature | + + + + + + | Na | 134 (L) | 135 - 145 | EXTERNAL | | | | | mmol/L | LAB | | + + + + + + | K | 4.0Comment: SPECIMEN | 3.5 - 4.9 | EXTERNAL [...] + + + + | Glucose, | 97Comment: SPECIMEN | 65 - 99 mg/dL | EXTERNAL | | | Fasting | SLIGHTLY HEMOLYZED | | LAB | | + + + + + + | BUN | 38 (H) | 8 - 25 mg/dL | EXTERNAL | | | | | | LAB | | + + + + + + | Creatinine | 14.4 (H)Comment: | 0.50 - 1.00 | EXTERNAL | | | | SPECIMEN SLIGHTLY | mg/dL | LAB | | | | HEMOLYZED | | | | + + + + + + | BUN/Creatin | 3 | | EXTERNAL | | | ine Ratio | | | LAB | | + + + + + + | Calcium | 6.8 (L) | 8.5 - 10.5 | EXTERNAL [...] | | | | | performed at [facility], [address] | | | | | | [facility], | | | | | | [place] [address] | | | | + + + [...] + +---------+ + + External Lab: CBC (01/07/2019 5:18 AM PST) + + + + + + | Component | Value | Ref Range | Performed | Pathologist | | | | | At | Signature | + + + + + + | WBC | 9.72 | 3.80 - 11.00 | EXTERNAL | | | | | K/uL | LAB | | + + + + + + | Red Blood | 3.40 (L) | 3.70 - 5.10 | EXTERNAL | | | Cells | | M/uL | LAB | | | Counted | | | | | + + + + + + | Hemoglobin | 10.2 (L) | 11.3 - 15.5 | EXTERNAL | | | | | g/dL | LAB | | + + + + + + | Hematocrit, | 30.4 (L) | 34.0 - 46.0 % | EXTERNAL | | | POC | | | LAB | | + + + + + + | MCV | 89.5 | 80.0 - 100.0 fl | EXTERNAL | | | | | | LAB | | + + + + + + | MCH | 30.2 | 27.0 - 34.0 pg | EXTERNAL | | | | | | LAB | | + + + + + + | MCHC | 33.7 | 32.0 - 35.5 | EXTERNAL | | | | | g/dL | LAB | | + + + + + + | RDW-CV | 48.6 | 37 - 53 fl | EXTERNAL | | | | | | LAB | | + + + + + + | Platelet | 225 | 150 - 400 K/uL | EXTERNAL | | | Count | | | LAB | | | Plasma | | | | | + + + + + + | MPV | 9.0 | fl | EXTERNAL | | | [...] + + + + | Lymphocytes | 18 | % | EXTERNAL | | | Manual | | | LAB | | + + + + + + | Monocytes | 6 | % | EXTERNAL | | | Manual | | | LAB | | + + + + + + | Eosinophils | 3 | % | EXTERNAL | | | Manual | | | LAB | | + + + + + + | Absolute | 7.00 | 1.90 - 7.40 | EXTERNAL | | | Neutrophils | | K/uL | LAB | | + + + + + + | Absolute | 0.10 (H) | K/uL | EXTERNAL | | | Myelocytes | | | LAB | | + + + + + + | Absolute | 1.75 | 1.00 - 3.90 | EXTERNAL | | | Lymphocytes | | K/uL | LAB | | + + + + + + | Absolute | 0.58 | 0.00 - 0.80 | EXTERNAL | | | Monocytes | | K/uL | LAB | | + + + + + + | Absolute | 0.29 | 0.00 - 0.50 | EXTERNAL | [...] at | | | | | | [facility], [address] | | | | | | [place] | | | | | | [address] | | | | + + + + + + + + | Specimen | + + | Blood specimen | | (specimen) | + + + +---------+ + + | Performing | Address | City/State/Zipcode | Phone Number | | Organization | | | | + +---------+ + + | EXTERNAL LAB | | | | + +---------+ + + Magnesium (01/07/2019 5:18 AM PST) + + + + + + | Component | Value | Ref Range | Performed | Pathologist | | | | | At | Signature | + + + + + + | Magnesium | 2.1Comment: Testing | 1.7 - 2.4 mg/dL | EXTERNAL | | | | performed at [facility], [address] | | LAB | | | | [facility], | | | | | | [place] [address] | | | | + + + [...] + +---------+ + + Comprehensive Metabolic Panel (01/07/2019 5:18 AM PST) + + + + + -+ | Component | Value | Ref Range | Performed | Pathologist | | | | | At | Signature | + + + + + -+ | Na | 134 (L) | 135 - 145 | EXTERNAL | | | | | mmol/L | LAB | | + + + + + -+ | K | 2.6 (LL)Comment: RESULT | 3.5 - 4.9 | EXTERNAL | | | | READ BACK BY: SILVIA R @ | mmol/L | LAB | | | | MARY 6:45 01/07/19 DH | | | | | | SILVIA R @ MARY 6:45 01/07/19 DH | | | | | | | | | | + + + + + -+ | Cl | 98 (L) | 99 - 109 mmol/L | EXTERNAL | | | | | | LAB | | + + + + + -+ | CO2 | 23 | 23 - 32 mmol/L | EXTERNAL | | | | | | LAB | | + + + + + -+ | Anion Gap | 16 | 5 - 20 mmol/L | EXTERNAL | | | | | | LAB | | + + + + + -+ | Glucose, | 91 | 65 - 99 mg/dL | EXTERNAL | | | Fasting | | | LAB | | + + + + + -+ | BUN | 34 (H) | 8 - 25 mg/dL | EXTERNAL | | | | | | LAB | | + + + + + -+ | Creatinine | 14.0 (H) | 0.50 - 1.00 | EXTERNAL | | | | | mg/dL | LAB | | + + + + + -+ | BUN/Creatin | 2 | | EXTERNAL | | | ine Ratio | | | LAB | | + + + + + -+ | Calcium | 6.8 (L) | 8.5 - 10.5 | EXTERNAL | | | | | mg/dL | LAB | | + + + + + -+ | Protein, | 5.4 (L) | 6.3 - 8.2 g/dL | EXTERNAL | | | Total | | | LAB | | + + + + + -+ | Albumin | 2.1 (L) | 3.6 - 5.0 g/dL | EXTERNAL | | | | | | LAB | | + + + + + -+ | Globulin | 3.3 | 1.3 - 4.9 g/dL | EXTERNAL | | | | | | LAB | | + + + + + -+ | A/G Ratio | 0.6 (L) | 1.0 - 2.4 | EXTERNAL | | | | | | LAB | | + + + + + -+ | Bilirubin | 0.3 | 0.1 - 1.5 mg/dL | EXTERNAL | | | Total | | | LAB | | + + + + + -+ | ALP, | 46 | 35 - 115 U/L | EXTERNAL | | | External | | | LAB | | + + + + + -+ | AST | 17 | 10 - 45 U/L | EXTERNAL | | | | | | LAB | | + + + + + -+ | ALT | 36 | 10 - 65 U/L | EXTERNAL | | | | | | LAB | | + + + + + -+ | Estimated | 3 (L)Comment: GFR <60: [...] | | | | | performed at [facility], [address] | | | | | | [facility], | | | | | | [place] [address] | | | | + + + + + -+ + + | Specimen | + + | Blood specimen | | (specimen) | + + + +---------+ + + | Performing | Address | City/State/Zipcode | Phone Number | | Organization | | | | + +---------+ + + | EXTERNAL LAB | | | | + +---------+ + + Procalcitonin (01/06/2019 5:29 AM PST) + + + + + + | Component | Value | Ref Range | Performed | Pathologist | | | | | At | Signature | + + + + + + | PROCALCITON | 0.82 (H)Comment: | ng/mL | EXTERNAL | | [...] | | | | | | at [facility];[address] [place] [address] | | | | | | [facility];[place] [address] | | | | + + + + + + + + | Specimen | + + | | + + + +---------+ + + | Performing | Address | City/State/Zipcode | Phone Number | | Organization | | | | + +---------+ + + | EXTERNAL LAB | | | | + +---------+ + + External Lab: CBC (01/06/2019 5:29 AM PST) + + + + + + | Component | Value | Ref Range | Performed | Pathologist | | | | | At | Signature | + + + + + + | WBC | 11.15 (H) | 3.80 - 11.00 | EXTERNAL | | | | | K/uL | LAB | | + + + + + + | Red Blood | 3.77 | 3.70 - 5.10 | EXTERNAL | | | Cells | | M/uL | LAB | | | Counted | | | | | + + + + + + | Hemoglobin | 11.0 (L) | 11.3 - 15.5 | EXTERNAL | | | | | g/dL | LAB | | + + + + + + | Hematocrit, | 33.7 (L) | 34.0 - 46.0 % | EXTERNAL | | | POC | | | LAB | | + + + + + + | MCV | 89.5 | 80.0 - 100.0 fl | EXTERNAL | | | | | | LAB | | + + + + + + | MCH | 29.2 | 27.0 - 34.0 pg | EXTERNAL | | | | | | LAB | | + + + + + + | MCHC | 32.6 | 32.0 - 35.5 | EXTERNAL | | | | | g/dL | LAB | | + + + + + + | RDW-CV | 49.0 | 37 - 53 fl | EXTERNAL | | | | | | LAB | | + + + + + + | Platelet | 267 | 150 - 400 K/uL | EXTERNAL | | | Count | | | LAB | | | Plasma | | | | | + + + + + + | MPV | 9.1 | fl | EXTERNAL | | | | | | LAB | | + + + + + + | Differentia | AUTOMATED | | EXTERNAL | | | l Type | | | LAB | | + + + + + + | % Segmented | 75.00 | % | EXTERNAL | | | | | | LAB | | | Neutrophils | | | | | + + + + + + | % | 16.11 | % | EXTERNAL | | | Lymphocytes | | | LAB | | + + + + + + | % Monocytes | 6.73 | % | EXTERNAL | | | | | | LAB | | + + + + + + | % | 1.65 | % | EXTERNAL | | | Eosinophils | | | LAB | | + + + + + + | % Basophils | 0.51 | % | EXTERNAL | | | | | | LAB | | + + + + + + | Absolute | 8.36 (H) | 1.90 - 7.40 | EXTERNAL | | | Segmented | | K/uL | LAB | | | Neutrophils | | | | | + + + + + + | Absolute | 1.80 | 1.00 - 3.90 | EXTERNAL | | | Lymphocytes | | K/uL | LAB | | + + + + + + | Absolute | 0.75 | 0.00 - 0.80 | EXTERNAL | | | Monocytes | | K/uL | LAB | | + + + + + + | Absolute | 0.18 | 0.00 - 0.50 | EXTERNAL | | | Eosinophils | | K/uL | LAB | | + + + + + + | Absolute | 0.06Comment: Testing | 0.00 - 0.10 | EXTERNAL | | | Basophils | performed at [facility], [address] | K/uL | LAB | | | | [facility], | | | | | | [place] [address] | | | | + + + + + + + + | Specimen | + + | Blood specimen | | (specimen) | + + + +---------+ + + | Performing | Address | City/State/Zipcode | Phone Number | | Organization | | | | + +---------+ + + | EXTERNAL LAB | | | | + +---------+ + + C-Reactive Protein (01/06/2019 5:29 AM PST) + + + + + + | Component | Value | Ref Range | Performed | Pathologist | | | | | At | Signature | + + + + + + | CRP | 0.3Comment: Testing | mg/dL | EXTERNAL | | | | performed at [facility], [address] | | LAB | | | | [address], | | | | | | [place] [address] | | | | + + + + + + + + | Specimen | + + | Blood specimen | | (specimen) | + + + +---------+ + + | Performing | Address | City/State/Zipcode | Phone Number | | Organization | | | | + +---------+ + + | EXTERNAL LAB | | | | + +---------+ + + Phosphorus (01/06/2019 5:29 AM PST) + + + + + + | Component | Value | Ref Range | Performed | Pathologist | | | | | At | Signature | + + + + + + | PHOSPHORUS | 8.8 (H)Comment: Testing | 2.3 - 4.8 mg/dL | EXTERNAL | | | | performed at [facility], [address] | | LAB | | | | [address], | | | | | | [place] [address] | | | | + + + + + + + + | Specimen | + + | Blood specimen | | (specimen) | + + + +---------+ + + | Performing | Address | City/State/Zipcode | Phone Number | | Organization | | | | + +---------+ + + | EXTERNAL LAB | | | | + +---------+ + + Magnesium (01/06/2019 5:29 AM PST) + + + + + + | Component | Value | Ref Range | Performed | Pathologist | | | | | At | Signature | + + + + + + | Magnesium | 2.3Comment: Testing | 1.7 - 2.4 mg/dL | EXTERNAL | | | | performed at [facility], [address] | | LAB | | | | [address], | | | | | | [place] [address] | | | | + + + [...] + +---------+ + + Comprehensive Metabolic Panel (01/06/2019 5:29 AM PST) + + + + + --+ | Component | Value | Ref Range | Performed | Pathologist | | | | | At | Signature | + + + + + --+ | Na | 134 (L) | 135 - 145 | EXTERNAL | | | | | mmol/L | LAB | | + + + + + --+ | K | 2.7 (LL)Comment: RESULT | 3.5 - 4.9 | EXTERNAL | | | | READ BACK BY: BRANDEE Britton | mmol/L | LAB | | | | @ [facility] 7:06 01/06/19 DH | | | | | | BRANDEE Britton @ [facility] 7:06 01/06/19 DH | | | | | | | | | | + + + + + --+ | Cl | 97 (L) | 99 - 109 mmol/L | EXTERNAL | | | | | | LAB | | + + + + + --+ | CO2 | 23 | 23 - 32 mmol/L | EXTERNAL | | | | | | LAB | | + + + + + --+ | Anion Gap | 17 | 5 - 20 mmol/L | EXTERNAL | | | | | | LAB | | + + + + + --+ | Glucose, | 117 (H) | 65 - 99 mg/dL | EXTERNAL | | | Fasting | | | LAB | | + + + + + --+ | BUN | 39 (H) | 8 - 25 mg/dL | EXTERNAL | | | | | | LAB | | + + + + + --+ | Creatinine | 15.2 (H) | 0.50 - 1.00 | EXTERNAL | | | | | mg/dL | LAB | | + + + + + --+ | BUN/Creatin | 3 | | EXTERNAL | | | ine Ratio | | | LAB | | + + + + + --+ | Calcium | 7.8 (L) | 8.5 - 10.5 | EXTERNAL | | | | | mg/dL | LAB | | + + + + + --+ | Protein, | 6.0 (L) | 6.3 - 8.2 g/dL | EXTERNAL | | | Total | | | LAB | | + + + + + --+ | Albumin | 2.4 (L) | 3.6 - 5.0 g/dL | EXTERNAL | | | | | | LAB | | + + + + + --+ | Globulin | 3.6 | 1.3 - 4.9 g/dL | EXTERNAL | | | | | | LAB | | + + + + + --+ | A/G Ratio | 0.7 (L) | 1.0 - 2.4 | EXTERNAL | | | | | | LAB | | + + + + + --+ | Bilirubin | 0.4 | 0.1 - 1.5 mg/dL | EXTERNAL | | | Total | | | LAB | | + + + + + --+ | ALP, | 56 | 35 - 115 U/L | EXTERNAL | | | External | | | LAB | | + + + + + --+ | AST | 26 | 10 - 45 U/L | EXTERNAL | | | | | | LAB | | + + + + + --+ | ALT | 50 | 10 - 65 U/L | EXTERNAL | | | | | | LAB | | + + + + + --+ | Estimated | 3 (L)Comment: GFR <60: [...] | | | | | | MDRD IDNM traceable | | | | | | equation.Testing | | | | | | performed at [facility], [address] | | | | | | [facility], | | | | | | [place] [address] | | | | + + + + + --+ + + | Specimen | + + | Blood specimen | | (specimen) | + + + +---------+ + + | Performing | Address | City/State/Zipcode | Phone Number | | Organization | | | | + +---------+ + + | EXTERNAL LAB | | | | + +---------+ + + Troponin I (01/05/2019 11:47 AM PST) + + + + + + | Component | Value | Ref Range | Performed | Pathologist | | | | | At | Signature | + + + + + + | Troponin I, | 0.074 (H)Comment: 0.04 | 0.00 - 0.04 | EXTERNAL | | | Qual | ng/mL or less | ng/mL | LAB | | | | Negative, repeat | | | | | | testing in four to six | | | | | | hour if clinically | | | | | | indicted0.05 to 0.77 | | | | | | ng/mL | | | | | | Suspicious for | | | | | | myocardial injury. | | | | | | Serial measurements may | | | | | | be necessary to confirm | | | | | | or exclude the diagnosis | | | | | | of acute coronary | | | | | | syndrome. Repeat testing | | | | | | in four to six hours if | | | | | | indicated.0.78 or | | | | | | greater ng/mL | | | | | | Consistent with | | | | | | myocardial injury. | | | | | | Clinical and laboratory | | | | | | correlation recommended. | | | | | | NOTE NEW REFERENCE | | | | | | RANGETesting performed | | | | | | at [facility];[address];[place] [address] | | | | + + + + + + + + | Specimen | + + | Blood specimen | | (specimen) | + + + +---------+ + + | Performing | Address | City/State/Zipcode | Phone Number | | Organization | | | | + +---------+ + + | EXTERNAL LAB | | | | + +---------+ + + Troponin I (01/05/2019 5:42 AM PST) + + + + + + | Component | Value | Ref Range | Performed | Pathologist | | | | | At | Signature | + + + + + + | Troponin I, | 0.073 (H)Comment: 0.04 | 0.00 - 0.04 | EXTERNAL | | | Qual | ng/mL or less | ng/mL | LAB | | | | Negative, repeat | | | | | | testing in four to six | | | | | | hour if clinically | | | | | | indicted0.05 to 0.77 | | | | | | ng/mL | | | | | | Suspicious for | | | | | | myocardial injury. | | | | | | Serial measurements may | | | | | | be necessary to confirm | | | | | | or exclude the diagnosis | | | | | | of acute coronary | | | | | | syndrome. Repeat testing | | | | | | in four to six hours if | | | | | | indicated.0.78 or | | | | | | greater ng/mL | | | | | | Consistent with | | | | | | myocardial injury. | | | | | | Clinical and laboratory | | | | | | correlation recommended. | | | | | | NOTE NEW REFERENCE | | | | | | RANGETesting performed | | | | | | at [facility];[address] | | | | | | [address];[place] [address] | | | | + + + + + + + + | Specimen | + + | Blood specimen | | (specimen) | + + + +---------+ + + | Performing | Address | City/State/Zipcode | Phone Number | | Organization | | | | + +---------+ + + | EXTERNAL LAB | | | | + +---------+ + + Protime INR (01/05/2019 5:42 AM PST) + + + + + + | Component | Value | Ref Range | Performed | Pathologist | | | | | At | Signature | + + + + + + | INR | 1.1Comment: REFERENCE | | EXTERNAL | | | [...] | | | | | performed at [facility];[address] | | | | | | [facility];[place], [place] | | | | | | [address] | | | | + + + [...] + +---------+ + + External Lab: CBC (01/05/2019 5:42 AM PST) + + + + + + | Component | Value | Ref Range | Performed | Pathologist | | | | | At | Signature | + + + + + + | WBC | 14.70 (H) | 3.80 - 11.00 | EXTERNAL | | | | | K/uL | LAB | | + + + + + + | Red Blood | 4.18 | 3.70 - 5.10 | EXTERNAL | | | Cells | | M/uL | LAB | | | Counted | | | | | + + + + + + | Hemoglobin | 12.3 | 11.3 - 15.5 | EXTERNAL | | | | | g/dL | LAB | | + + + + + + | Hematocrit, | 37.3 | 34.0 - 46.0 % | EXTERNAL [...] | 32.9 | 32.0 - 35.5 | EXTERNAL | | | | | g/dL | LAB | | + + + + + + | RDW-CV | 49.4 | 37 - 53 fl | EXTERNAL | | | | | | LAB | | + + + + + + | Platelet | 311 | 150 - 400 K/uL | EXTERNAL [...] + + + | % Segmented | 78.88 | % | EXTERNAL | | | | | | LAB | | | Neutrophils | | | | | + + + + + + | % | 12.34 | % | EXTERNAL | | | Lymphocytes | | | LAB | | + + + + + + | % Monocytes | 8.10 | % | EXTERNAL | | | | | | LAB | | + + + + + + | % | 0.27 | % | EXTERNAL | | | Eosinophils | | | LAB | | + + + + + + | % Basophils | 0.41 | % | EXTERNAL | | | | | | LAB | | + + + + + + | Absolute | 11.59 (H) | 1.90 - 7.40 | EXTERNAL | | | Segmented | | K/uL | LAB | | | Neutrophils | | | | | + + + + + + | Absolute | 1.81 | 1.00 - 3.90 | EXTERNAL | | | Lymphocytes | | K/uL | LAB | | + + + + + + | Absolute | 1.19 (H) | 0.00 - 0.80 | EXTERNAL | | | Monocytes | | K/uL | LAB | | + + + + + + | Absolute | 0.04 | 0.00 - 0.50 | EXTERNAL | | | Eosinophils | | K/uL | LAB | | + + + + + + | Absolute | 0.06Comment: Testing | 0.00 - 0.10 | EXTERNAL | | | Basophils | performed at [facility], [address] | [address] | LAB | | | | [address], | | | | | | [place] [address] | | | | + + + + + + + + | Specimen | + + | Blood specimen | | (specimen) | + + + +---------+ + + | Performing | Address | City/State/Zipcode | Phone Number | | Organization | | | | + +---------+ + + | EXTERNAL LAB | | | | + +---------+ + + Phosphorus (01/05/2019 5:42 AM PST) + + + + + + | Component | Value | Ref Range | Performed | Pathologist | | | | | At | Signature | + + + + + + | PHOSPHORUS | 11.2 ()Comment: RESULT | 2.3 - 4.8 mg/dL | EXTERNAL | | | | READ BACK BY: JUVENAL Quarles | | LAB | | | | @ MARY 7:41 01/05/19 | | | | | | DHTesting performed at | | | | | | [facility], [address] | | | | | | [place] | | | | | | [address] | | | | + + + + + + + + | Specimen | + + | Blood specimen | | (specimen) | + + + +---------+ + + | Performing | Address | City/State/Zipcode | Phone Number | | Organization | | | | + +---------+ + + | EXTERNAL LAB | | | | + +---------+ + + Magnesium (01/05/2019 5:42 AM PST) + + + + + + | Component | Value | Ref Range | Performed | Pathologist | | | | | At | Signature | + + + + + + | Magnesium | 2.4Comment: Testing | 1.7 - 2.4 mg/dL | EXTERNAL | | | | performed at [facility], [address] | | LAB | | | | [address], | | | | | | [place] [address] | | | | + + + + + + + + | Specimen | + + | Blood specimen | | (specimen) | + + + +---------+ + + | Performing | Address | City/State/Zipcode | Phone Number | | Organization | | | | + +---------+ + + | EXTERNAL LAB | | | | + +---------+ + + Lipid Panel (01/05/2019 5:42 AM PST) + + + + + + | Component | Value | Ref Range | Performed | Pathologist | | | | | At | Signature | + + + + + + | Cholesterol | 116 | mg/dL | EXTERNAL | | | | | | LAB | | + + + + + + | Triglycerid | 158 (H) | mg/dL | EXTERNAL | | | es | | | LAB | | + + + + + + | HDL | 45 | mg/dL | EXTERNAL | | | | | | LAB | | + + + + + + | LDL, | 39Comment: Testing | mg/dL | EXTERNAL | | | Calculated | performed at [facility], [address] | | LAB | | | | [address], | | | | | | [place] [address] | | | | + + + [...] + +---------+ + + Basic Metabolic Panel (01/05/2019 5:42 AM PST) + + + + + [...] + + + | Anion Gap | 22 (H) | 5 - 20 [...] 8.4 (L) | 8.5 - 10.5 | EXTERNAL | | | | | mg/dL | LAB | | + + + + + + | Estimated | 2 (L)Comment: GFR <60: | mL/min/1.73m2 | EXTERNAL [...] | | | | | | MDRD IDNM traceable | | | | | | equation.Testing | | | | | | performed at [facility], [address] | | | | | | [facility], | | | | | | [place] [address] | | | | + + + [...] + +---------+ + + ECG 12 lead (01/05/2019 12:55 AM PST) + + + + + + | Component | Value | Ref Range | Performed | Pathologist | | | | | At | Signature | + + + + + + | DIAGNOSIS: | Normal sinus rhythm with | | EXTERNAL | | | | sinus arrhythmiaST & T | | LAB | | | | wave abnormality, | | | | | | consider inferior | | | | | | ischemiaST & T wave | | | | | | abnormality, consider | | | | | | anterolateral | | | | | | ischemiaProlonged | | | | | | QTAbnormal ECGWhen | | | | | | compared with ECG of | | | | | | 26-DEC-2018 | | | | | | 07:46,Minimal criteria | | | | | | for Inferior infarct are | | | | | | no longer PresentT wave | | | | | | inversion now evident | | | | | | in Inferior | | | | | | leadsConfirmed by MUSE | | | | | | READ ONLY, -COMPUTER | | | | | | ([phone]), videotape editor Collin, | | | | | | Rashel Mercado ([id number]) on | | | | | | 01/05/2019 3:50:25 AM | | | | + + + + + + + + | Specimen | + + | | + + + + + | Narrative | Performed At | + + + | Historically converted procedure from [facility] | EXTERNAL LAB | + + + + +---------+ + + | Performing | Address | City/State/Zipcode | Phone Number | | Organization | | | | + +---------+ + + | EXTERNAL LAB | | | | + +---------+ + + Troponin I (01/05/2019 12:51 AM PST) + + + + + + | Component | Value | Ref Range | Performed | Pathologist | | | | | At | Signature | + + + + + + | Troponin I, | 0.076 (H)Comment: 0.04 | 0.00 - 0.04 | EXTERNAL | | | Qual | ng/mL or less | ng/mL | LAB | | | | Negative, repeat | | | | | | testing in four to six | | | | | | hour if clinically | | | | | | indicted0.05 to 0.77 | | | | | | ng/mL | | | | | | Suspicious for | | | | | | myocardial injury. | | | | | | Serial measurements may | | | | | | be necessary to confirm | | | | | | or exclude the diagnosis | | | | | | of acute coronary | | | | | | syndrome. Repeat testing | | | | | | in four to six hours if | | | | | | indicated.0.78 or | | | | | | greater ng/mL | | | | | | Consistent with | | | | | | myocardial injury. | | | | | | Clinical and laboratory | | | | | | correlation recommended. | | | | | | NOTE NEW REFERENCE | | | | | | RANGETesting performed | | | | | | at [facility];[address];[place] [address] | | | | + + + + + + + + | Specimen | + + | | + + + +---------+ + + | Performing | Address | City/State/Zipcode | Phone Number | | Organization | | | | + +---------+ + + | EXTERNAL LAB | | | | + +---------+ + + External Lab: CBC (01/05/2019 12:51 AM PST) + + + + + + | Component | Value | Ref Range | Performed | Pathologist | | | | | At | Signature | + + + + + + | WBC | 15.65 (H) | 3.80 - 11.00 | EXTERNAL | | | | | K/uL | LAB | | + + + + + + | Red Blood | 4.24 | 3.70 - 5.10 | EXTERNAL | | | Cells | | M/uL | LAB | | | Counted | | | | | + + + + + + | Hemoglobin | 12.7 | 11.3 - 15.5 | EXTERNAL | | | | | g/dL | LAB | | + + + + + + | Hematocrit, | 37.4 | 34.0 - 46.0 % | EXTERNAL | | | POC | | | LAB | | + + + + + + | MCV | 88.2 | 80.0 - 100.0 fl | EXTERNAL | | | | | | LAB | | + + + + + + | MCH | 30.0 | 27.0 - 34.0 pg | EXTERNAL | | | | | | LAB | | + + + + + + | MCHC | 34.0 | 32.0 - 35.5 | EXTERNAL | | | | | g/dL | LAB | | + + + + + + | RDW-CV | 49.4 | 37 - 53 fl | EXTERNAL | | | | | | LAB | | + + + + + + | Platelet | 337 | 150 - 400 K/uL | EXTERNAL | | | Count | | | LAB | | | Plasma | | | | | + + + + + + | MPV | 8.7 | fl | EXTERNAL | | | | | | LAB | | + + + + + + | Differentia | AUTOMATED | | EXTERNAL | | | l Type | | | LAB | | + + + + + + | % Segmented | 81.32 | % | EXTERNAL | | | | | | LAB | | | Neutrophils | | | | | + + + + + + | % | 10.35 | % | EXTERNAL | | | Lymphocytes | | | LAB | | + + + + + + | % Monocytes | 7.85 | % | EXTERNAL | | | | | | LAB | | + + + + + + | % | 0.13 | % | EXTERNAL | | | Eosinophils | | | LAB | | + + + + + + | % Basophils | 0.35 | % | EXTERNAL | | | | | | LAB | | + + + + + + | Absolute | 12.72 (H) | 1.90 - 7.40 | EXTERNAL | | | Segmented | | K/uL | LAB | | | Neutrophils | | | | | + + + + + + | Absolute | 1.62 | 1.00 - 3.90 | EXTERNAL | | | Lymphocytes | | K/uL | LAB | | + + + + + + | Absolute | 1.23 (H) | 0.00 - 0.80 | EXTERNAL | | | Monocytes | | K/uL | LAB | | + + + + + + | Absolute | 0.02 | 0.00 - 0.50 | EXTERNAL | | | Eosinophils | | K/uL | LAB | | + + + + + + | Absolute | 0.06Comment: Testing | 0.00 - 0.10 | EXTERNAL | | | Basophils | performed at [facility];[address] | [address] | LAB | | | | [address];[place] | | | | | | [address] | | | | + + + + + + + + | Specimen | + + | Blood specimen | | (specimen) | + + + +---------+ + + | Performing | Address | City/State/Zipcode | Phone Number | | Organization | | | | + +---------+ + + | EXTERNAL LAB | | | | + +---------+ + + Phosphorus (01/05/2019 12:51 AM PST) + + + + + + | Component | Value | Ref Range | Performed | Pathologist | | | | | At | Signature | + + + + + + | PHOSPHORUS | 11.7 ()Comment: CALLED | 2.3 - 4.8 mg/dL | EXTERNAL | | | | TO LEONILA Hernández RN/ER AT | | LAB | | | | 0304 BY MWREAD BACK | | | | | | RESULTS VERIFIEDTesting | | | | | | performed at [facility];[address] | | | | | | [address];[place] | | | | | | [address] | | | | + + + + + + + + | Specimen | + + | Blood specimen | | (specimen) | + + + +---------+ + + | Performing | Address | City/State/Zipcode | Phone Number | | Organization | | | | + +---------+ + + | EXTERNAL LAB | | | | + +---------+ + + Magnesium (01/05/2019 12:51 AM PST) + + + + + + | Component | Value | Ref Range | Performed | Pathologist | | | | | At | Signature | + + + + + + | Magnesium | 2.1Comment: Testing | 1.7 - 2.4 mg/dL | EXTERNAL | | | | performed at [facility];[address] | | LAB | | | | [address];[place] | | | | | | [address] | | | | + + + [...] + +---------+ + + Comprehensive Metabolic Panel (01/05/2019 12:51 AM PST) + + + + + + | Component | Value | Ref Range | Performed | Pathologist | | | | | At | Signature | + + + + + + | Na | 143 | 135 - 145 | EXTERNAL | | | | | mmol/L | LAB | | + + + + + + | K | 2.8 (L) | 3.5 - 4.9 | EXTERNAL | | | | | mmol/L | LAB | | + + + + + + | Cl | 99 | 99 - 109 mmol/L | EXTERNAL [...] + + + + | Glucose, | 93 | 65 - 99 mg/dL | EXTERNAL | | | Fasting | | | LAB | | + + + + + + | BUN | 37 (H) | 8 - 25 mg/dL | EXTERNAL | | | | | | LAB | | + + + + + + | Creatinine | 15.32 (H) | 0.50 - 1.00 | EXTERNAL [...] 4.1 | 3.6 - 5.0 g/dL | EXTERNAL | | | | | | LAB | | + + + + + + | Globulin | 2.7 | 1.3 - 4.9 g/dL | EXTERNAL | | | | | | LAB | | + + + + + + | A/G Ratio | 1.5 | 1.0 - 2.4 | EXTERNAL | | | | | | LAB | | + + + + + + | Bilirubin | 0.4 | 0.1 - 1.5 mg/dL | EXTERNAL | | | Total | | | LAB | | + + + + + + | ALP, | 74 | 35 - 115 U/L | EXTERNAL | | | External | | | LAB | | + + + + + + | AST | 55 (H) | 10 - 45 U/L | EXTERNAL | | | | | | LAB | | + + + + + + | ALT | 53 | 10 - 65 U/L | EXTERNAL [...] | | | | | performed at [facility] | | | | | | [facility];[place], [place] | | | | | | [address] | | | | + + + [...] | Diagnosis | + + | Diverticulitis Diverticulitis of colon (without mention of hemorrhage) | + + | Hypokalemia Hypopotassemia | + + | ESRD on peritoneal dialysis (HCC) End stage renal disease | + + | End-stage renal disease on peritoneal dialysis (HCC) End stage renal disease | + + documented in this encounter
--- OUTSIDE RECORDS SUMMARY | ~2020-04-05 | XMS | Encounter Summary ---
Demographics + + + | Address | [address] | | | [place] [address] | + + + | Home Phone | | + + + | Preferred Language | Unknown | + + + | Marital Status | | + + + | Alevism Affiliation | Unknown | + + + | Race | Unknown | + + + | Ethnic Group | Unknown | + + + Author + + + | Author | [facility] | | | and [place] | + + + | Organization | [facility] | | | and [place] | + + + | Address | Unknown | + + + | Phone | Unavailable | + + + Support + + + + + | Name | Relationship | Address | Phone | + + + + + | Lyubov Smalls | ECON | [place], [place] | | | | | [address] | | + + + + + | Lydia Palm | ECON | [place], [place] | | | | | [address] | | + + + + + | melinda METZ" | ECON | [place], [place] | | | [place] | | [address] | | + + + + + | Jose C Oconnor | ECON | [place] | | | | | [place] | | | | | [address] | | + + + + + Care Team Providers + +------+ + | Care Tromper Name | Role | Phone | + [...] + + | 07/22/ | Telephone | [facility] | Qasim Pederson MD | Other | | 2019 | | VASCULAR SURGERY | [address] | | | | | [address] | [place], [place] | | | | | [place], [place] | [address] | | | | | [address] | | | | | | [phone] | | | +--------+ + + + [...]
--- OUTSIDE RECORDS SUMMARY | ~2020-04-05 | XMS | Encounter Summary ---
Demographics + + + | Address | [address] | | | [place] [address] | + + + | Home Phone | | + + + | Preferred Language | Unknown | + + + | Marital Status | | + + + | Moravian Affiliation | Unknown | + + + | Race | Unknown | + + + | Ethnic Group | Unknown | + + + Author + + + | Author | [facility] | | | and [place] | + + + | Organization | [facility] | | | and [place] | + + + | Address | Unknown | + + + | Phone | Unavailable | + + + Support + + + + + | Name | Relationship | Address | Phone | + + + + + | Lyubov Smalls | ECON | [place], [place] | | | | | [address] | | + + + + + | Lydia Palm | ECON | [place], [place] | | | | | [address] | | + + + + + | melinda METZ" | ECON | [place], [place] | | | [place] | | [address] | | + + + + + | Jose C Oconnor | ECON | [place] | | | | | [place] | | | | | [address] | | + + + + + Care Team Providers + +------+ + | Care Circuitry Negative Inspector Name | Role | Phone | + +------+ + | Eileen RickP | PCP | | + +------+ + Encounter Details +--------+ + + + + | Date | Type | Department | Care Team | Description | +--------+ + + + + | 07/06/ | Orders Only | [facility] | Qasim Pederson MD | ESRD on dialysis | | 2019 | | VASCULAR SURGERY | [address] | ([facility]) (Primary Dx); | | | | [address] | [place], [place] | Wound infection | | | | [place], [place] | [address] | after surgery | | | | [address] | | | | | | [phone] | | | +--------+ + + + [...]
--- OUTSIDE RECORDS SUMMARY | ~2020-04-05 | XMS | Encounter Summary ---
Demographics + + + | Address | [address] | | | [place] [address] | + + + | Home Phone | | + + + | Preferred Language | Unknown | + + + | Marital Status | | + + + | Yazidism Affiliation | Unknown | + + + | Race | Unknown | + + + | Ethnic Group | Unknown | + + + Author + + + | Author | [facility] | | | and [place] | + + + | Organization | [facility] | | | and [place] | + + + | Address | Unknown | + + + | Phone | Unavailable | + + + Support + + + + + | Name | Relationship | Address | Phone | + + + + + | Lyubov Smalls | ECON | [place], [place] | | | | | [address] | | + + + + + | Lydia Palm | ECON | [place], [place] | | | | | [address] | | + + + + + | melinda METZ" | ECON | [place], [place] | | | [place] | | [address] | | + + + + + | Jose C Oconnor | ECON | [place] | | | | | [place] | | | | | [address] | | + + + + + Care Team Providers + +------+ + | Care Duty Engineer Name | Role | Phone | + +------+ + | Juan F Whitley DO | PCP | | + +------+ + Encounter Details +--------+ + + + + | Date | Type | Department | Care Team | Description | +--------+ + + + + | 06/13/ | Orders Only | [facility] | Provider, | Infection and | | 2019 | | SYSTEM GENERIC OP | MD [address] | inflammatory | | | | [address] | Petey [place] | reaction due to | | | | [address] | [place] [address] | peritoneal dialysis | | | | [address] | | catheter, initial | | | | [phone] | | encounter (HCC) | +--------+ + [...] as of this encounter Plan of Treatment + +------+--------+ + + | Name | Type | Priori | Associated Diagnoses | Order Schedule | | | | ty | | | + +------+--------+ + + | CBC with | Lab | Routin | Infection and | 2 Occurrences | | Differential | | e | inflammatory | starting 06/25/2019 | | | | | reaction due to | until 02/12/2020 | | | | | peritoneal dialysis | | | | | | catheter, initial | | | | | | encounter (HCC) | | + +------+--------+ + + | Hepatic Function | Lab | Routin | Infection and | 2 Occurrences | | Panel | | e | inflammatory | starting 06/25/2019 | | | | | reaction due to | until 02/12/2020 | | | | | peritoneal dialysis | | | | | | catheter, initial | | | | | | encounter (HCC) | | + +------+--------+ + + | Renal Function Panel | Lab | Routin | Infection and | Expected: | | | | e | inflammatory | 02/15/2019, Expires: | | | | | reaction due to | 02/16/2020 | | | | | peritoneal dialysis | | | | | | catheter, initial | | | | | | encounter (HCC) | | + +------+--------+ + + | CBC with | Lab | Routin | Infection and | Expected: | | Differential | | e | inflammatory | 03/03/2019, Expires: | | | | | reaction due to | 03/02/2020 | | | | | peritoneal dialysis | | | | | | catheter, initial | | | | | | encounter (HCC) | | + +------+--------+ + + documented as of this encounter Visit Diagnoses + + | Diagnosis | + + | Infection and inflammatory reaction due to peritoneal dialysis catheter, initial | | encounter (HCC) | + + documented in this encounter
--- OUTSIDE RECORDS SUMMARY | ~2020-04-05 | XMS | Encounter Summary ---
Demographics + + + | Address | [address] | | | [place] [address] | + + + | Home Phone | | + + + | Preferred Language | Unknown | + + + | Marital Status | | + + + | Cheondoism Affiliation | Unknown | + + + | Race | Unknown | + + + | Ethnic Group | Unknown | + + + Author + + + | Author | [facility] | | | and [place] | + + + | Organization | [facility] | [...] [place], [place] | | | | | [address] | | + + + + + | Lydia Palm | ECON | [place], [place] | | | | | [address] | | + + + + + | melinda METZ" | ECON | [place], [place] | | | reba | | [address] | | + + + + + | Jose C Oconnor | ECON | [place] | | | | | [place] | | | | | [address] | | + + + + + Care Team Providers + +------+ + | Care Arabic Professor Name | Role | Phone | + +------+ + | Juan F Whitley DO | PCP | | + +------+ + Encounter Details +--------+ + + + + | Date | Type | Department | Care Team | Description | +--------+ + + + + | 06/07/ | Hospital | [facility] | Rafiq Flood MD | End-stage renal | | 2018 - | Encounter | [facility] | [address] | disease on | | | | CARE FLO[address] | [place] [address] | peritoneal dialysis | | 06/09/ | | [address] | [phone] | ([facility]) | | 2018 | | [place], [place] | | | | | | [address] | | | | | | [phone] | | | +--------+ + + + [...] + + + | Blood Pressure | 111/69 | 06/09/2018 5:33 PM | | | | | PDT | | + + + + + | Pulse | 70 | 06/09/2018 5:33 PM | | | | | PDT | | + + + + + | Temperature | 36.6 C (97.9 F) | 06/09/2018 5:33 PM | | | | | PDT | | + + + + + | Respiratory Rate | 18 | 06/09/2018 5:33 PM | | | | | PDT | | + + + + + | Oxygen Saturation | - | - | | + + + + + | Inhaled Oxygen | - | - | | | Concentration | | | | + + + + + | Weight | 76.5 kg (168 lb 10.4 | 06/09/2018 5:33 PM | | | | oz) | PDT | | + + + + + | Height | 157.5 cm (5' 2") | 06/09/2018 5:33 PM | | | | | PDT | | + + + + + | Body Mass Index | 30.85 | 06/09/2018 5:33 PM | | | | | PDT | | + + + + + documented in this encounter Discharge Summaries Roque Wyatt DO - 06/09/2018 10:50 AM PDT Discharge Summaries by Roque Wyatt DO at 06/09/18 1050 Author: Roque Wyatt DO Service: Hospitalist Author Type: Physician Filed: 06/09/18 7231 Date of Service: 06/09/18 1052 Status: Signed Farmer Vegetable: Roque Wyatt DO (Physician) [facility] Service: Hospitalist Discharge Summary Date of Admission: 06/07/2018 Date of Discharge: 06/09/2018 Discharge Provider: Roque Wyatt DO Treatment Team: Consulting Physician: Andres Mejia MD Consulting Physician: Cathie Marroquin MD Admitting Provider: Rafiq Flood MD Discharge Diagnoses: Principal Problem (Resolved): Sepsis (HCC) Active Problems: Ovarian mass, right ESRD on peritoneal dialysis Right ovarian cyst Leukocytosis GERD with esophagitis Resolved Problems: Nausea with vomiting Peritonitis (HCC) Admitted for abdominal pain and concern for SBP, treated with empiric IV abx. She has ESRD on PD and nephrology was consulting, as well as ID. Further fluid analysis was reassuring an d apparently the fluid analysis that led to concern for PD was done with no dialysate/fluid in the abd which is not a reliable way to test for SBP in this situation. Case was discussed with Dr Mejia and Dr Marroquin and it was felt that the patient did not have SBP and could b e DC'd back home without abx. No other etiology for abd pain was evident from workup here. T he nephrology service is familiar with the patient and was concerned the issue could be more of a psychosocial problem. She will need to f/u with her PCP and/or dialysis case supervisor in [facility]. All of this was discussed with patient and she was in agreement. DISCHARGE EXAM Vital Signs: BP (!) 145/95 (BP Location: Right upper arm) | Pulse 72 | Temp 97.9 F (36.6 C) (Oral) | Resp 18 | Ht 1.575 m (5' 2") | Wt 76.5 kg (168 lb 10.4 oz) | SpO2 99% | Breastfeedin g? No | BMI 30.85 kg/m Physical Exam Constitutional: She is oriented to person, place, and time. She appears well-developed and well-nourished. No distress. HENT: Head: Normocephalic and atraumatic. Mouth/Throat: Oropharynx is clear and moist. Eyes: Conjunctivae are normal. No scleral icterus. Neck: Normal range of motion. Neck supple. No JVD present. Cardiovascular: Normal rate, regular rhythm, normal heart sounds and intact distal pulses. No murmur heard. Pulmonary/Chest: Effort normal and breath sounds normal. No respiratory distress. Abdomina/Gl: Soft. Bowel sounds are normal. She exhibits no distension and no mass. There i s no tenderness. There is no rebound and no guarding. Musculoskeletal: Normal range of motion. She exhibits no edema, tenderness or deformity. Neurological: She is alert and oriented to person, place, and time. Skin: Skin is warm and dry. No rash noted. She is not diaphoretic. No erythema. No pallor. Psychiatric: She has a normal mood and affect. Her behavior is normal. Judgment and thought content normal. Disposition: Home Condition: Stable Code Status: Full Code Follow [place]: [place] [address] [place] [address] Medication List CHANGE how you take these medications * HYDROcodone-acetaminophen 5-325 MG per tablet QTY: 10 tablet Refills: 0 Commonly known as: NORCO Take 1 tablet by mouth every 4 (four) hours as needed. What changed: Another medication with the same name was changed. Make sure you understand how and when to take each. * HYDROcodone-acetaminophen 5-325 MG per tablet QTY: 30 tablet Refills: 0 Commonly known as: NORCO Take 1 tablet by mouth every 6 (six) hours as needed for Pain for up to 7 days. What changed: reasons to take this * This list has 2 medication(s) that are the same as other medications prescribed for you. Read the directions carefully, and ask your doctor or other care provider to review them wit h you. CONTINUE taking these medications ALPRAZolam 0.5 MG tablet Refills: 0 Commonly known as: XANAX amLODIPine 2.5 MG tablet Refills: 0 Commonly known as: NORVASC ergocalciferol 09654 units capsule Refills: 0 Commonly known as: [...] HYDROcodone-acetaminophen 5-325 MG per tablet Discharge took ~35 minutes, to include final examination, discussion of admission, and prep aration of prescriptions, instructions for on-going care, follow-up and documentation of dis charge summary. Roque Wyatt DO 06/09/2018 11:15 AM documented in this enc ounter Medications at Time of Discharge + + [...] Progress Notes Conversion Transaction, Provider Unknown - 06/09/2018 5:34 PM PDTFormatting of this note m ight be different from the original. Nurse Progress Note by Marixa Juarez RN at 06/09/181733 Author: Marixa Juarez RN Service: (none) Author Type: Registered Nurse Filed: 06/09/186 Date of Service: 06/09/181733 Status: Signed Farmer Vegetable: Marixa Juarez RN (Registered Nurse) All discharge instructions and prescription information reviewed with pt and pt's mother. Pt states understanding and denies further questions. Pt states her ride will be here aroun d 1830. Marixa Juarez RN Cathie Henson MD - 06/09/2018 11:05 AM PDTFormatting of this note might be differen t from the original. Progress Notes by Cathie Marroquin MD at 06/09/18 1102 Author: Cathie Marroquin MD Service: Infectious Disease Author Type: Alexi an Filed: 06/09/181115 Date of Service: 06/09/181104 Status: Signed Farmer Vegetable: Cathie Marroquin MD (Physician) [facility] Service: Infectious Diseases Progress Note Hospital Day: LOS: 2 days Post-Op Day: * No surgery found * CC: follow up on infection and antibiotic therapy SUBJECTIVE/OVERNIGHT EVENTS The patient remains on treatment with antibiotics. No acute events over last 24 hours are reported. REVIEW OF SYSTEMS: sone nausea and dry heaving; afebrile MEDICATIONS: abx: vanc/ceftaz PHYSICAL EXAM Vital Signs: BP (!) 145/95 (BP Location: Right upper arm) | Pulse 72 | Temp 97.9 F (36.6 C) (Oral) | Resp 18 | Ht 1.575 m (5' 2") | Wt 76.5 kg (168 lb 10.4 oz) | SpO2 99% | Breastfeedin g? No | BMI 30.85 kg/m Focused exam shows: General exam: No distress, cooperative with exam. HEENT: sclera non-icteric, no visible oral thrush Cardiovascular: regular rate and rhythm Lungs: no tachypnea, clear breath sounds. Mildly decreased at bases; no TTP Abdomen: no distension, bowel sounds present Extremities/MSK: No edema, no joint effusions Skin: No lesions, normal turgor Neurologic: Awake, cranial nerves intact. Follows commands. LABS: MICRO: NGTD All labs were reviewed. CBC: Lab Results Component Value Date WBC 11.76 (H) 06/09/2018 RBC 3.81 06/09/2018 HGB 11.3 06/09/2018 HCT 32.9 (L) 06/09/2018 MCV 86.5 06/09/2018 MCH 29.6 06/09/2018 MCHC 34.2 06/09/2018 RDW 41.1 06/09/2018 PLT 309 06/09/2018 MPV 8.5 06/09/2018 DIFFTYPE AUTOMATED 06/09/2018 CMP: Lab Results Component Value Date NA 140 06/09/2018 K 2.9 (L) 06/09/2018 CL 100 06/09/2018 CO2 26 06/09/2018 ANIONGAP 17 06/09/2018 GLUF 94 06/09/2018 BUN 32 (H) 06/09/2018 CREATININE 15.2 (H) 06/09/2018 BCR 2 06/09/2018 CA 8.7 06/09/2018 CA 9.0 09/07/2017 PROT 7.9 06/05/2018 ALB 2.7 (L) 06/05/2018 GLOB 5.2 (H) 06/05/2018 BILITOT 0.5 06/05/2018 ALP 92 06/05/2018 AST 32 06/05/2018 ALT 21 06/05/2018 EGFR 3 (L) 06/09/2018 ASSESSMENT & PLAN The patient is a 38 y.o.-year-old female with the following problems: Spontaneous bacterial peritonitis, secondary: patient seen in rounds with Drs. Mejia and Amandeep prescott. Repeat analysis of PD fluid here was unremarkable for signs of infection. Further review of records noted that patient did not have adequate fluid to aspirate at [facility] where the initial diagnosis of SBP was entertained. While at [facility], patient has been afebrile with appropriate trends in WBC. She however has seemed more morose and sleepy most of the time. Today, patient denies any significant abdominal pain. Plans for discharge are in place. Per recent review of chart, no further indication for abx. I do recommend close follow up with her PCP and nephrology and for her to RTC if symptoms recur or any fevers. ESRD on PD: defer to nephrology Cathie Marroquin MD Infectious Diseases 06/09/2018 onversi on Transaction, Provider Unknown - 06/09/2018 10:28 AM PDTFormatting of this note might be d ifferent from the original. Pharmacy Note by Torrie Whelan RPH at 06/09/18 3556 Author: Torrie Whelan RPH Service: Pharmacy Author Type: Pharmacist Filed: 06/09/18 1028 Date of Service: 06/09/188 Status: Signed Farmer Vegetable: Torrie Whelan RPH (Pharmacist) Vancomycin Monitoring: Random level this AM returned elevated @31.5 Will not receive a dose today Will order another random with AM labs for tomorrow Pharmacy to continue to monitor and dose as appropriate Torrie Whelan-PharmD onver patric Transaction, Provider Unknown - 06/09/2018 5:34 AM PDT Progress Notes by Drew Renae [facility] at 06/09/18533 Author: Drew Renae RPH Service: Pharmacy Author Type: Pharmacist Filed: 06/09/18533 Date of Service: 06/09/18533 Status: Signed Farmer Vegetable: Drew Renae RPH (Pharmacist) Pharmacy vancomycin notes level 06/09 0431 31.52 no dose today per protocol and pharmacy will follow [facility] 0533 onver patric Transaction, Provider Unknown - 06/09/2018 2:29 AM PDT Nurse Progress Note by Katherine Ramos RN at 06/09/18228 Author: Katherine Ramos RN Service: (none) Author Type: Registered Nurse Filed: 06/09/18228 Date of Service: 06/09/18228 Status: Signed Farmer Vegetable: Katherine Ramos RN (Registered Nurse) Patient with few bouts of nausea and vomiting this shift. Patient mostly dry heaving with l ittle output. Not tolerating anything orally at this time. k-pad provided for abdominal pain . Patient still on PD at this time, until 0330. No other acute changes at this time. Katherine Ramos RN Arelis Mari i, MD - 06/08/2018 10:45 PM PDTFormatting of this note might be different from the or iginal. Progress Notes by Arelis Maloney MD at 06/08/18 9384 Author: Arelis Maloney MD Service: Hospitalist Author Type: Physician Filed: 06/08/182250 Date of Service: 06/08/182244 Status: Signed Farmer Vegetable: Arelis Maloney MD (Physician) [facility] Service: Hospitalist Progress Note Hospital Day: LOS: 1 day Post-Op Day: * No surgery found * SUBJECTIVE Events Overnight: Complains of abdominal pain with nausea/vomitting. Crying in pain. No di arrhea or constipation. Scheduled Medications amLODIPine 2.5 mg Oral Daily cefTAZidime 500 mg Intravenous Q24H heparin (porcine) 5000 unit/0.5mL 5,000 Units Subcutaneous 3 times per day metoclopramide 5 mg Intravenous Q6H sevelamer 1,600 mg Oral TID WC vancomycin 750 mg Intravenous See Admin Instructions Continuous Infusions PRN Medications acetaminophen OR acetaminophen, ALPRAZolam, fentaNYL OR fentaNYL, HYDROcodone-aceta minophen, lansoprazole, LORazepam, ondansetron OR ondansetron, polyethylene glycol, prom ethazine, zolpidem OBJECTIVE Vital Signs: BP 112/68 (BP Location: Left upper arm) | Pulse 65 | Temp 98.9 F (37.2 C) (Oral) | R enmanuel 18 | Ht 1.575 m (5' 2") | Wt 77 kg (169 lb 12.1 oz) | SpO2 95% | ? No | BMI 31.05 kg/m Gen: AOX3. NAD HEENT: NCAT CV: RRR. S1S2 normal. no murmer, rubs, or gallops. No JVD Chest: CTA b/l Abd: S, tenderness over PD catheter site. BS+, no gaurding or ridigity Ext: No edema. 2+ DP Neuro: Motor/sensations intact. 2+ DTRs DATA Recent Labs Lab 06/08/18 0440 06/05/18 005 WBC 16.57* 16.42* HGB 11.3 12.8 HCT 33.3* 39.0 PLT 311 400 NEUTOPHILPCT 82.59 83.54 MONOPCT 4.68 4.16 Recent Labs Lab 06/08/18 0440 06/05/18 0057 NA 138 138 K 3.4* 4.4 CL 100 96* CO2 27 28 BUN 40* 33* CREATININE 15.3* 15* PROT -- 7.9 BILITOT -- 0.5 ALT -- 21 AST -- 32 Phosphorus: Lab Results Component Value Date PHOS 3.7 06/08/2018 Invalid input(s): LABALBU Recent Labs Lab 06/08/18 0440 MG 2.7* No results for input(s): AMYLASE in the last 168 hours. No results for input(s): PHART, PO2ART, PDV2FJS, J9PISURJ, BEART in the last 168 hours. Recent Labs Lab 06/05/18 0057 APTT 27 INR 0.9 No results for input(s): TSH, T3FREE, FREET4 in the last 168 hours. Recent Labs Lab 06/05/18 0057 CKTOTAL 126 TROPONINI <0.020 CKMBINDEX UNABLE TO CALCULATE DATA Ct Abdomen & Pelvis Without Contrast Result Date: 06/05/2018 1. No dilated or thick-walled bowel is seen. Appendix is normal. 2. There is trace free flu id within the pelvis. Peritoneal dialysis catheter is in place. 3. There is mild heterogenei ty and enlargement of the right ovary. This could reflect underlying complex cyst or mass. 4 . The kidneys are atrophic. Electronically signed by Katlyn Esteves MD on Jun 05 2018 1 :44AM Referring Provider Line: [phone] ID: [id number] Xr Chest Pa And Lateral Result Date: 06/05/2018 1. No acute cardiopulmonary process noted. Electronically signed by Pratik Harden MD o n 06/05/2018 7:12 AM Us Endovaginal Result Date: 06/05/2018 1. Enlarged right ovary measuring 42 cc with complex cystic lesion measuring 3.6 x 2.8 x 3. 4 cm. Some internal vascularity is again seen within this lesion. Neoplasm not excluded. 2. Left ovary appears normal. 3. No torsion seen. RADIA Electronically signed by Lukas Dean MD on Jun 05 2018 4:27AM Referring Provider Line: [phone] ID: [id number] PROBLEM LIST Principal Problem: Sepsis (HCC) Active Problems: Ovarian mass, right ESRD on peritoneal dialysis Nausea with vomiting Right ovarian cyst Leukocytosis Peritonitis (HCC) GERD with esophagitis ASSESSMENT & PLAN Secondary bacterial peritonitis: cell count 1400 with 42% neutrophils from 06/05. continue v anc/fortaz. ID consulted, appreciate recommendations. Continue pain control, anti-emetics. ESRD: on PD, management per nephrology. Right ovarian mass: Patient has seen Dr. Torres as an outpatient and she status post tra nsvaginal ultrasound. Current plan to follow-up with him in the clinic for further discussio n between risk and benefits for consideration of surgical intervention. Leukocytosis: 2/2 peritonitis, trending down, await blood culture results. Hypertension: BP controlled, continue home anti-hypertensives. Disposition: inpatient Code Status: Full Code DVT PPx: heparin SQ Arelis Maloney MD 06/08/2018 onversion Transactio n, Provider Unknown - 06/08/2018 6:52 PM PDT Nurse Progress Note by Daisha Atwood RN at 06/08/181851 Author: Daisha Atwood RN Service: (none) Author Type: Registered Nurse Filed: 06/08/181855 Date of Service: 06/08/181851 Status: Signed Farmer Vegetable: Daisha Atwood RN (Registered Nurse) A/Ox4, pt had episodes of SBP in the 90's post pain medication administration and a high te mp of 99.6f. Pt continues to report abd pain with N/V. Zofran, Reglan, Phenergan, Ativan, an d Fentanyl given PRN. Infectious disease consulted today. Pt is currently back on PD pt to b e discontinued at 0330. No acute changes. Will continue to monitor. onver patric Transaction, Provider Unknown - 06/08/2018 2:45 PM PDT Case Management by Saeid Mack RN at 06/08/18 7578 Author: Saied Mack RN Service: (none) Author Type: Registered Nurse Filed: 06/08/18 6099 Date of Service: 06/08/181444 Status: Signed Farmer Vegetable: Saeid Mack RN (Registered Nurse) 06/08/18 7470 Discharge Planning Evaluation Admitting Diagnosis sepsis Readmission No Living Arrangements Other (Comment) Support Systems Spouse/significant other;Family members Type of Residence Private residence Independent with ADL's Yes Independent with Mobility Yes Mental Status Oriented Resources Financial concerns No Transportation issues No Patient/Family concerns No Prescription Plan Yes Name of Pharmacy [facility] Previous home health equipment No Vascular access device (PD access) Anticipated Disposition Facility Type Home Met with Ramona and discussed discharge planning, Pt is a 38 y.o., female who is independent and lives with her spouse. She does peritoneal dialysis at home and has support from the [employer] in [place]. Patient's PCP is:Juan F Whitley Patient's insurance:[employer]/ Medicare part A Coverage concerns: none Medication coverage/concerns: yes/no Community resources utilized / needed:Monique from [facility] [phone] can arrange for PICC care if needed. Assistance in transportation: spouse Identification of any specific education / training: none Barriers to Discharge / Alternative housing needed: none Anticipated DCP: Home with spouse but may need home IV anti biotics Saeid Mack onver patric Transaction, Provider Unknown - 06/08/2018 1:04 PM PDT Pharmacy Note by Naheed Lala RPH at 06/08/18 1307 Author: Naheed Lala RPH Service: Pharmacy Author Type: Pharmacist Filed: 06/08/18 4383 Date of Service: 06/08/18 1304 Status: Signed Farmer Vegetable: Naheed Lala RPH (Pharmacist) ESRD on peritoneal dialysis. Will decrease Metoclopramide dose by 50% Changed from 10 mg q6h to 5 mg q6h onver patric Transaction, Provider Unknown - 06/08/2018 12:37 PM PDT Pharmacy Note by Naheed Lala RPH at 06/08/18 3628 Author: Naheed Lala RPH Service: Pharmacy Author Type: Pharmacist Filed: 06/08/18 8219 Date of Service: 06/08/18 1237 Status: Addendum Farmer Vegetable: Naheed Lala RPH (Pharmacist) Related Notes: Original Note by Naheed Lala RPH (Pharmacist) filed at 06/08/18 1237 Vancomycin day 2: Note that this patient receives peritoneal dialysis and not HD. Therefore, will need to riri ck random levels to determine when dose is due. Patient received Vancomycin 1500 mg IV this morning 06/08. No additional dose due today. Will check random level with am labs. Plan to gi ve dose of Vancomycin 750 mg IV if level is less than 15 mcg/ml. onver patric Transaction, Provider Unknown - 06/08/2018 6:49 AM PDT Nurse Progress Note by Katherine Ramos RN at 06/08/18648 Author: Katherine Ramos RN Service: (none) Author Type: Registered Nurse Filed: 06/08/1853 Date of Service: 06/08/18648 Status: Signed Farmer Vegetable: Katherine Ramos RN (Registered Nurse) Patient currently running peritoneal dialysis until 1030. Patient BP drops into the 90's wi th pain medication. Held medication when BP too low, and educated pt. Zofran, phenergan, and ativan given as needed. Katherine Ramos RN onver patric Transaction, Provider Unknown - 06/08/2018 5:47 AM PDT Progress Notes by Drew Renae RPH at 06/08/1847 Author: Drew Renae RPH Service: Pharmacy Author Type: Pharmacist Filed: 06/08/1847 Date of Service: 06/08/18546 Status: Signed Farmer Vegetable: Drew Renae RPH (Pharmacist) Pharmacy vancomycin notes 38 yo female 78.7kg scr 15 ccl 4.8 ESRD 1000mg given pendelt on hosp will add 500mg x 1 to equal 1500mg dose #1 then 750mg after each dialysis no le vels indicated per protocol and pharmacy will follow [facility] 0547 onver patric Transaction, Provider Unknown - 06/08/2018 12:20 AM PDT Progress Notes by Drew Renae RPH at 06/08/1819 Author: Drew Renae RPH Service: Pharmacy Author Type: Pharmacist Filed: 06/08/1819 Date of Service: 06/08/1819 Status: Signed Farmer Vegetable: Drew Renae RPH (Pharmacist) Note ccl 4.8ml/min ESRD meds reviewed pharmacy will follow [facility]dc 0020 onver patric Transaction, Provider Unknown - 06/07/2018 8:54 PM PDT Nurse Progress Note by Katherine Ramos RN at 06/07/182053 Author: Katherine Ramos RN Service: (none) Author Type: Registered Nurse Filed: 06/07/182058 Date of Service: 06/07/182053 Status: Signed Farmer Vegetable: Katherine Ramos RN (Registered Nurse) Received report from [facility] RN. Patient just leaving facility at this time. Katherine Ramos RN docume nted in this encounter Plan of Treatment Not on filedocumented as of this encounter Procedures + +--------+ + + + | Procedure Name | Priori | Date/Time | Associated Diagnosis | Comments | | | ty | | | | + +--------+ + + + | EXTERNAL LAB: CBC | Routin | 06/09/2018 | | Results for this | | | e | 4:31 AM | | procedure are in the | | | | PDT | | results section. | + +--------+ + + + | VANCOMYCIN LEVEL | Routin | 06/09/2018 | | Results for this | | | e | 4:31 AM | | procedure are in the | | | | PDT | | results section. | + +--------+ + + + | BASIC METABOLIC | Routin | 06/09/2018 | | Results for this | | PANEL | e | 4:31 AM | | procedure are in the | | | | PDT | | results section. | + +--------+ + + + | CELL COUNT, BODY | Routin | 06/08/2018 | | Results for this | | FLUID | e | 1:00 PM | | procedure are in the | | | | PDT | | results section. | + +--------+ + + + | CULTURE, BODY FLUID, | Routin | 06/08/2018 | | Results for this | | STERILE, SMEAR, | e | 1:00 PM | | procedure are in the | | WITH ANAEROBES | | PDT | | results section. | + +--------+ + + + | EXTERNAL LAB: CBC | Routin | 06/08/2018 | | Results for this | | | e | 4:40 AM | | procedure are in the | | | | PDT | | results section. | + +--------+ + + + | PHOSPHORUS | Routin | 06/08/2018 | | Results for this | | | e | 4:40 AM | | procedure are in the | | | | PDT | | results section. | + +--------+ + + + | MAGNESIUM | Routin | 06/08/2018 | | Results for this | | | e | 4:40 AM | | procedure are in the | | | | PDT | | results section. | + +--------+ + + + | BASIC METABOLIC | Routin | 06/08/2018 | | Results for this | | PANEL | e | 4:40 AM | | procedure are in the | | | | PDT | | results section. | + +--------+ + + + | MRSA NAAT | Timed | 06/07/2018 | | Results for this | | | | 11:54 PM | | procedure are in the | | | | PDT | | results section. | + +--------+ + + + documented in this encounter Results External Lab: CBC (06/09/2018 4:31 AM PDT) + + + + + + | Component | Value | Ref Range | Performed | Pathologist | | | | | At | Signature | + + + + + + | WBC | 11.76 (H) | 3.80 - 11.00 | EXTERNAL | | | | | K/uL | LAB | | + + + + + + | Red Blood | 3.81 | 3.70 - 5.10 | EXTERNAL | | | Cells | | M/uL | LAB | | | Counted | | | | | + + + + + + | Hemoglobin | 11.3 | 11.3 - 15.5 | EXTERNAL | | | | | g/dL | LAB | | + + + + + + | Hematocrit, | 32.9 (L) | 34.0 - 46.0 % | EXTERNAL | | | POC | | | LAB | | + + + + + + | MCV | 86.5 | 80.0 - 100.0 fl | EXTERNAL | | | | | | LAB | | + + + + + + | MCH | 29.6 | 27.0 - 34.0 pg | EXTERNAL | | | | | | LAB | | + + + + + + | MCHC | 34.2 | 32.0 - 35.5 | EXTERNAL | | | | | g/dL | LAB | | + + + + + + | RDW-CV | 41.1 | 37 - 53 fl | EXTERNAL | | | | | | LAB | | + + + + + + | Platelet | 309 | 150 - 400 K/uL | EXTERNAL [...] + + + | % Segmented | 79.22 | % | EXTERNAL | | | | | | LAB | | | Neutrophils | | | | | + + + + + + | % | 13.56 | % | EXTERNAL | | | Lymphocytes | | | LAB | | + + + + + + | % Monocytes | 6.40 | % | EXTERNAL | | | | | | LAB | | + + + + + + | % | 0.24 | % | EXTERNAL | | | Eosinophils | | | LAB | | + + + + + + | % Basophils | 0.58 | % | EXTERNAL | | | | | | LAB | | + + + + + + | Absolute | 9.32 (H) | 1.90 - 7.40 | EXTERNAL | | | Segmented | | K/uL | LAB | | | Neutrophils | | | | | + + + + + + | Absolute | 1.60 | 1.00 - 3.90 | EXTERNAL | | | Lymphocytes | | K/uL | LAB | | + + + + + + | Absolute | 0.75 | 0.00 - 0.80 | EXTERNAL | | | Monocytes | | K/uL | LAB | | + + + + + + | Absolute | 0.03 | 0.00 - 0.50 | EXTERNAL | | | Eosinophils | | K/uL | LAB | | + + + + + + | Absolute | 0.07Comment: Testing | 0.00 - 0.10 | EXTERNAL | | | Basophils | performed at [facility], [address] | [address] | LAB | | | | [address], | | | | | | [place] [address] | | | | + + + + + + + + | Specimen | + + | Blood specimen | | (specimen) | + + + +---------+ + + | Performing | Address | City/State/Zipcode | Phone Number | | Organization | | | | + +---------+ + + | EXTERNAL LAB | | | | + +---------+ + + Vancomycin Level (06/09/2018 4:31 AM PDT) + + + + + + | Component | Value | Ref Range | Performed | Pathologist | | | | | At | Signature | + + + + + + | Vancomycin | 31.52Comment: Testing | ug/mL | EXTERNAL | | | Random | performed at [facility];[address] | | LAB | | | | [address];[place], [place] | | | | | | [address] | | | | + + + [...] + +---------+ + + Basic Metabolic Panel (06/09/2018 4:31 AM PDT) + + + + + [...] + + + + | Creatinine | 15.2 (H) | 0.50 [...] | | | | | performed at [facility], [address] | | | | | | [facility] ([place], [place]), | | | | | | [place] [address] | | | | + + + [...] Culture, Body Fluid, Sterile, Smear, with Anaerobes (06/08/2018 1:00 PM PDT) + + | Specimen | [...] +---------+ + + Cell Count, Body Fluid (06/08/2018 1:00 PM PDT) + + | Specimen | + + | | + + + + + | Narrative | Performed At | + + + | FLUID TYPE PERITONEAL FLUID | EXTERNAL LAB | | COLOR COLORLESS | | | APPEARANCE CLEAR RBC'S | | | 0 TOTAL | | | NUCLEATED CELLS 2 Testing performed | | | at [facility];[address];[place] [address] | | + + + + +---------+ + + | Performing | Address | City/State/Zipcode | Phone Number | | Organization | | | | + +---------+ + + | EXTERNAL LAB | | | | + +---------+ + + External Lab: CBC (06/08/2018 4:40 AM PDT) + + + + + + | Component | Value | Ref Range | Performed | Pathologist | | | | | At | Signature | + + + + + + | WBC | 16.57 (H) | 3.80 - 11.00 | EXTERNAL | | | | | K/uL | LAB | | + + + + + + | Red Blood | 3.82 | 3.70 - 5.10 | EXTERNAL | | | Cells | | M/uL | LAB | | | Counted | | | | | + + + + + + | Hemoglobin | 11.3 | 11.3 - 15.5 | EXTERNAL | | | | | g/dL | LAB | | + + + + + + | Hematocrit, | 33.3 (L) | 34.0 - 46.0 % | EXTERNAL | | | POC | | | LAB | | + + + + + + | MCV | 87.3 | 80.0 - 100.0 fl | EXTERNAL | | | | | | LAB | | + + + + + + | MCH | 29.7 | 27.0 - 34.0 pg | EXTERNAL [...] + + + | % Segmented | 82.59 | % | EXTERNAL | | | | | | LAB | | | Neutrophils | | | | | + + + + + + | % | 12.07 | % | EXTERNAL | | | Lymphocytes | | | LAB | | + + + + + + | % Monocytes | 4.68 | % | EXTERNAL | | | | | | LAB | | + + + + + + | % | 0.20 | % | EXTERNAL | | | Eosinophils | | | LAB | | + + + + + + | % Basophils | 0.46 | % | EXTERNAL | | | | | | LAB | | + + + + + + | Absolute | 13.68 (H) | 1.90 - 7.40 | EXTERNAL | | | Segmented | | K/uL | LAB | | | Neutrophils | | | | | + + + + + + | Absolute | 2.00 | 1.00 - 3.90 | EXTERNAL | | | Lymphocytes | | K/uL | LAB | | + + + + + + | Absolute | 0.78 | 0.00 - 0.80 | EXTERNAL | | | Monocytes | | K/uL | LAB | | + + + + + + | Absolute | 0.03 | 0.00 - 0.50 | EXTERNAL | | | Eosinophils | | K/uL | LAB | | + + + + + + | Absolute | 0.08Comment: Testing | 0.00 - 0.10 | EXTERNAL | | | Basophils | performed at [facility], [address] | [address] | LAB | | | | [address], | | | | | | [place] [address] | | | | + + + + + + + + | Specimen | + + | Blood specimen | | (specimen) | + + + +---------+ + + | Performing | Address | City/State/Zipcode | Phone Number | | Organization | | | | + +---------+ + + | EXTERNAL LAB | | | | + +---------+ + + Phosphorus (06/08/2018 4:40 AM PDT) + + + + + + | Component | Value | Ref Range | Performed | Pathologist | | | | | At | Signature | + + + + + + | PHOSPHORUS | 3.7Comment: Testing | 2.3 - 4.8 mg/dL | EXTERNAL | | | | performed at [facility], [address] | | LAB | | | | [address], | | | | | | [place] [address] | | | | + + + + + + + + | Specimen | + + | Blood specimen | | (specimen) | + + + +---------+ + + | Performing | Address | City/State/Zipcode | Phone Number | | Organization | | | | + +---------+ + + | EXTERNAL LAB | | | | + +---------+ + + Magnesium (06/08/2018 4:40 AM PDT) + + + + + + | Component | Value | Ref Range | Performed | Pathologist | | | | | At | Signature | + + + + + + | Magnesium | 2.7 (H)Comment: Testing | 1.7 - 2.4 mg/dL | EXTERNAL | | | | performed at [facility], [address] | | LAB | | | | [address], | | | | | | [place] [address] | | | | + + + [...] + +---------+ + + Basic Metabolic Panel (06/08/2018 4:40 AM PDT) + + + + + [...] + + + + | Creatinine | 15.3 (H) | 0.50 - 1.00 | EXTERNAL | | | | | mg/dL | LAB | | + + + + + + | BUN/Creatin | 3 | | EXTERNAL | | | ine Ratio | | | LAB | | + + + + + + | Calcium | 8.5 | 8.5 - 10.5 | EXTERNAL | [...] | | | | | performed at [facility], [address] | | | | | | [facility] ([place], [place]), | | | | | | [place] [address] | | | | + + + + + + + + | Specimen | + + | Blood specimen | | (specimen) | + + + +---------+ + + | Performing | Address | City/State/Zipcode | Phone Number | | Organization | | | | + +---------+ + + | EXTERNAL LAB | | | | + +---------+ + + MRSA NAAT (06/07/2018 11:54 PM PDT) + + | Specimen | + + | | + + + + + | Narrative | Performed At | + + + | SOURCE NARES(NOSE) MRSA | EXTERNAL LAB | | PCR NEGATIVE Testing | | | performed at [facility];[address];[place] [address] | | + + + + +---------+ [...]
--- OUTSIDE RECORDS SUMMARY | ~2020-04-05 | XMS | Encounter Summary ---
Demographics + + + | Address | [address] | | | [place] [address] | + + + | Home Phone [...] + | Author | [facility] | | | and [place] | + + + | Organization | [facility] | | | and [place] | + + + | Address | Unknown | + + + | Phone | Unavailable | + + + Support + + + + + | Name | Relationship | Address | Phone | + + + + + | Lyubov Smalls | ECON | [place], [place] | | | | | [address] | | + + + + + | Lydia Palm | ECON | [place], [place] | | | | | [address] | | + + + + + | melinda METZ" | ECON | [place], [place] | | | [place] | | [address] | | + + + + + | Jose C Oconnor | ECON | [address] | | | | | [place] | | | | | [address] | | + + + + + Care Team Providers + +------+ + | Care Correctional Manager Name | Role | Phone | [...] | | | | | | | ([facility]) | | | | | | | Procedures | | | | | | | IN | | | | | | | [...] + + | 12/16/ | Anesthesia | [facility] | Julian Olivares | | | 2020 | Event [facility] | [address] | | | | | [address] | [address] | | | | | [address] | [place] [address] | | | | | [place], [place] | [phone] | | | | | [address] | | | | | | [phone] | | | +--------+ + + + + Anesthesia Record + + + + + | Procedure Name | Responsible | Anesthesia Start | Anesthesia Stop Time | | | Anesthesiologist | Time | | + + + + + | INSERTION AV FISTULA | Julian Sinclair | 12/16/19 1240 | 12/16/19 1455 | [...] | 12/16/191656 by | | eral | [id number] catheter system; | Jordyn Hyde RN | [...] Intravenous, PRN, Starting Nina | | 20 12:53 | | | [...]
--- OUTSIDE RECORDS SUMMARY | ~2020-04-05 | XMS | Encounter Summary ---
Demographics + + + | Address | [address] | | | [place] [address] | + + + | Home Phone | | + + + | Preferred Language | Unknown | + + + | Marital Status | | + + + | Protestant Affiliation | Unknown | + + + | Race | Unknown | + + + | Ethnic Group | Unknown | + + + Author + + + | Author | [facility] | | | and [place] | + + + | Organization | [facility] | | | and [place] | + + + | Address | Unknown | + + + | Phone | Unavailable | + + + Support + + + + + | Name | Relationship | Address | Phone | + + + + + | Lyubov Smalls | ECON | [place], [place] | | | | | [address] | | + + + + + | Lydia Palm | ECON | [place], [place] | | | | | [address] | | + + + + + | melinda METZ" | ECON | [place], [place] | | | [place] | | [address] | | + + + + + | Jose C Oconnor | ECON | [place] | | | | | [place] | | | | | [address] | | + + + + + Care Team Providers + +------+ + | Care Demurrage Agent Name | Role | Phone | + +------+ + | No, Physician | PCP | Unavailable | + +------+ + Reason for Visit + + + | Reason | Comments | + + + | Follow-up(Procedure) | | + + + Encounter Details +--------+ + + + + | Date | Type | Department | Care Team | Description | +--------+ + + + + | 11/08/ | Telephone | [facility] | Demar Ponce, | Follow-up(Procedure) | | 2019 | | INTERVENTIONAL | RN | | | | | RADIOLOGY [address] | | | | | [address] | | | | | | [place], [place] | | | | | | [address] | | | | | | [phone] | | | +--------+ + + + [...]
--- OUTSIDE RECORDS SUMMARY | ~2020-04-05 | XMS | Encounter Summary ---
Demographics + + + | Address | [address] | | | [place] [address] | + + + | Home Phone | | + + + | Preferred Language | Unknown | + + + | Marital Status | | + + + | Hinduism Affiliation | Unknown | + + + | Race | Unknown | + + + | Ethnic Group | Unknown | + + + Author + + + | Author | [facility] | | | and [place] | + + + | Organization | [facility] | | | and [place] | + + + | Address | Unknown | + + + | Phone | Unavailable | + + + Support + + + + + | Name | Relationship | Address | Phone | + + + + + | Lyubov Smalls | ECON | [place], [place] | | | | | [address] | | + + + + + | Lydia Palm | ECON | [place], [place] | | | | | [address] | | + + + + + | melinda METZ" | ECON | [place], [place] | | | [place] | | [address] | | + + + + + | Jose C Oconnor | ECON | [address] [place] | | | | | [place] | | | | | [address] | | + + + + + Care Team Providers + +------+ + | Care Superintendent Overhead Distribution Name | Role | Phone | + +------+ + | No, Physician | PCP | Unavailable | + +------+ + Reason for Visit + + + | Reason | Comments | + + + | Wound Care | | | Appointment | | + + + Encounter Details +--------+ + + + + | Date | Type | Department | Care Team | Description | +--------+ + + + + | 08/10/ | Clinical | [facility] | Nidhi Whitaker, | ESRD on dialysis | | 2019 | Support | VASCULAR SURGERY | RN | (HCC) (Primary Dx) | | | | [address] | | | | | | [place] | | | | | | [address] | | | | | | [phone] | | | +--------+ + + + [...] + documented as of this encounter Progress Nidhi Zuniga RN - 08/10/2019 1:00 PM PDTPatient presented to office again after ER v isit. Patient's GI symptoms have since resolved. Patient's wound vac dressing to left axil jen area removed without difficulty, opening to wound is 1 cm wide, depth remains at 4 cm, no pus or drainage noted. Wound is 50% smaller than what it was 2 weeks ago. Wound redress ed without any issue, pressure set to 125 mmHg, patient is to follow up with wound care on Jakob ballard and [facility] in 2 weeks. She will call [facility] if any issue arises. Electro nically signed by Nidhi Whitaker RN at 08/10/2019 5:30 PM PDTdocumented in this encounte r Plan of Treatment Not on filedocumented as of this encounter Visit Diagnoses + + | Diagnosis | + + | ESRD on dialysis (HCC) - Primary End stage renal disease | + + documented in this encounter
--- OUTSIDE RECORDS SUMMARY | ~2020-04-05 | XMS | Encounter Summary ---
Demographics + + + | Address | [address] | | | [place] [address] | + + + | Home Phone | | + + + | Preferred Language | Unknown | + + + | Marital Status | | + + + | Lutheran Affiliation | Unknown | + + + | Race | Unknown | + + + | Ethnic Group | Unknown | + + + Author + + + | Author | [facility] | | | and [place] | + + + | Organization | [facility] | | | and [place] | + + + | Address | Unknown | + + + | Phone | Unavailable | + + + Support + + + + + | Name | Relationship | Address | Phone | + + + + + | Lyubov Smalls | ECON | [place], [place] | | | | | [address] | | + + + + + | Lydia Palm | ECON | [place], [place] | | | | | [address] | | + + + + + | melinda METZ" | ECON | [place], [place] | | | [place] | | [address] | | + + + + + | Jose C Oconnor | ECON | [address] [place] | | | | | [place] | | | | | [address] | | + + + + + Care Team Providers + +------+ + | Care Ob Scrub Tech Name | Role | Phone | + +------+ + | No, Physician | PCP | Unavailable | + +------+ + Reason for Visit + + + | Reason | Comments | + + + | Post-op Problem | | + + + Encounter Details +--------+ + + + + | Date | Type | Department | Care Team | Description | +--------+ + + + + | 09/03/ | Telephone | [facility] | Nidhi Whitaker, | Post-op Problem | | 2018 | | VASCULAR SURGERY | RN | | | | | [address] | | | | | | [place] | | | | | | [address] | | | | | | [phone] | | | +--------+ + + + [...]
--- OUTSIDE RECORDS SUMMARY | ~2020-04-05 | XMS | Encounter Summary ---
Demographics + + + | Address | [address] | | | [place] [address] | + + + | Home Phone [...] [place], [place] | | | | | [address] | | + + + + + | Lydia Palm | ECON | [place], [place] | | | | | [address] | | + + + + + | melinda METZ" | ECON | [place], [place] | | | [place] | | [address] | | + + + + + | Jose C Oconnor | ECON | [address] | | | | | [place] | | | | | [address] | | + + + + + Care Team Providers + +------+ + | Care First Mate Name | Role | Phone | + [...] + + | 01/12/ | Telephone | [facility] | Samira Dixon, | Error | | 2020 | | VASCULAR SURGERY | RN | | | | | [address] | | | | | | [place] | | | | | | [address] | | | | | | [phone] | | | +--------+ + + + [...]
--- OUTSIDE RECORDS SUMMARY | ~2020-04-05 | XMS | Encounter Summary ---
Demographics + + + | Address | [address] | | | [place] [address] | + + + | Home Phone | | + + + | Preferred Language | Unknown | + + + | Marital Status | | + + + | Voodoo Affiliation | Unknown | + + + [...] [place], [place] | | | | | [address] | | + + + + + | Lydia Palm | ECON | [place], [place] | | | | | [address] | | + + + + + | melinda METZ" | ECON | [place], [place] | | | [place] | | [address] | | + + + + + | Jose C Oconnor | ECON | [address] | | | | | [place] | | | | | [address] | | + + + + + Care Team Providers + +------+ + | Care Office Services Associate Name | Role | Phone | + +------+ + | No, Physician | PCP | Unavailable | + +------+ + Encounter Details +--------+ + + + + | Date | Type | Department | Care Team | Description | +--------+ + + + + | 08/26/ | Hospital | [facility] | Qasim Pederson MD | Canceled (OTHER) | | 2019 | Encounter | [facility] | [address] | | | | | [address] | [address] | | | | | [place], [place] | [address] | | | | | [address] | | | | | | [phone] | | | +--------+ + + + [...] mg by mouth | | 0 | /14/20 | | | (ZOFRAN) 4 mg tablet [...] | + +--------+ + + + | TYPE AND SCREEN | Routin | 08/26/2019 | | Results for this | | | e | 5:22 PM | | procedure are in the | | | | PDT | | results section. | + +--------+ + + + documented in this encounter Results Type and Screen (08/26/2019 5:22 PM PDT) + + + + + + | Component | Value | Ref Range | Performed | Pathologist | | | | | At | Signature | + + + + + + | ABO Rh | A POSITIVE | | [facility] | | | | | | LABORATORY | | + + + + + + | Antibody | NEGATIVE | | [facility] | | | Screen | | | LABORATORY | | + + + + + + | BB BAND | [id number] | | [facility] | | | | | | LABORATORY | | + + + + + + | UNIT # | [id number] | | [facility] | | | | | | LABORATORY | | + + + + + + | Product | LEUKODEPLETED PC | | [facility] | | | Code | | | LABORATORY | | + + + + + + | Unit | 00 | | [facility] | | | Division | | | LABORATORY | | + + + + + + | Unit Status | REL FROM ALLOC | | [facility] | | | | | | LABORATORY | | + + + + + + | Transfusion | OK TO TRANSFUSE | | [facility] | | | Status | | | LABORATORY | | + + + + + + | CROSSMATCH | COMPATIBLE | | [facility] | | | RESULT | | | LABORATORY | | + + + + + + | UNIT # | [id number] | | [facility] | | | | | | LABORATORY | | + + + + + + | Product | LEUKODEPLETED PC | | [facility] | | | Code | | | LABORATORY | | + + + + + + | Unit | 00 | | [facility] | | | Division | | | LABORATORY | | + + + + + + | Unit Status | REL FROM ALLOC | | [facility] | | | | | | LABORATORY | | + + + + + + | Transfusion | OK TO TRANSFUSE | | [facility] | | | Status | | | LABORATORY | | + + + + + + | CROSSMATCH | COMPATIBLE | | [facility] | | | RESULT | | | LABORATORY | | + + + + + + | UNIT # | [id number] | | [facility] | | | | | | LABORATORY | | + + + + + + | Product | LEUKODEPLETED PC | | [facility] | | | Code | | | LABORATORY | | + + + + + + | Unit | 00 | | [facility] | | | Division | | | LABORATORY | | + + + + + + | Unit Status | REL FROM ALLOC | | [facility] | | | | | | LABORATORY | | + + + + + + | Transfusion | OK TO TRANSFUSE | | [facility] | | | Status | | | LABORATORY | | + + + + + + | CROSSMATCH | COMPATIBLE | | [facility] | | | RESULT | | | LABORATORY | | + + + + + + | UNIT # | [id number] | | [facility] | | | | | | LABORATORY | | + + + + + + | Product | LEUKODEPLETED PC | | [facility] | | | Code | | | LABORATORY | | + + + + + + | Unit | 00 | | [facility] | | | Division | | | LABORATORY | | + + + + + + | Unit Status | REL FROM ALLOC | | [facility] | | | | | | LABORATORY | | + + + + + + | Transfusion | OK TO TRANSFUSE | | [facility] | | | Status | | | LABORATORY | | + + + + + + | CROSSMATCH | COMPATIBLE | | [facility] | | | RESULT | | | LABORATORY | | + + + + + + | UNIT # | [id number] | | [facility] | | | | | | LABORATORY | | + + + + + + | Product | LEUKODEPLETED PC | | [facility] | | | Code | | | LABORATORY | | + + + + + + | Unit | 00 | | [facility] | | | Division | | | LABORATORY | | + + + + + + | Unit Status | REL FROM ALLOC | | [facility] | | | | | | LABORATORY | | + + + + + + | Transfusion | OK TO TRANSFUSE | | [facility] | | | Status | | | LABORATORY | | + + + + + + | CROSSMATCH | COMPATIBLE | | [facility] | | | RESULT | | | LABORATORY | | + + + + + + | UNIT # | [id number] | | [facility] | | | | | | LABORATORY | | + + + + + + | Product | LEUKODEPLETED PC | | [facility] | | | Code | | | LABORATORY | | + + + + + + | Unit | 00 | | [facility] | | | Division | | | LABORATORY | | + + + + + + | Unit Status | REL FROM ALLOC | | [facility] | | | | | | LABORATORY | | + + + + + + | Transfusion | OK TO TRANSFUSE | | [facility] | | | Status | | | LABORATORY | | + + + + + + | CROSSMATCH | COMPATIBLE | | [facility] | | | RESULT | | | LABORATORY | | + + + + + + | UNIT # | [id number] | | [facility] | | | | | | LABORATORY | | + + + + + + | Product | LEUKODEPLETED PC | | [facility] | | | Code | | | LABORATORY | | + + + + + + | Unit | 00 | | [facility] | | | Division | | | LABORATORY | | + + + + + + | Unit Status | REL FROM ALLOC | | [facility] | | | | | | LABORATORY | | + + + + + + | Transfusion | OK TO TRANSFUSE | | [facility] | | | Status | | | LABORATORY | | + + + + + + | CROSSMATCH | COMPATIBLE | | [facility] | | | RESULT | | | LABORATORY | | + + + + + + | UNIT # | [id number] | | [facility] | | | | | | LABORATORY | | + + + + + + | Product | LEUKODEPLETED PC | | [facility] | | | Code | | | LABORATORY | | + + + + + + | Unit | 00 | | [facility] | | | Division | | | LABORATORY | | + + + + + + | Unit Status | REL FROM ALLOC | | [facility] | | | | | | LABORATORY | | + + + + + + | Transfusion | OK TO TRANSFUSE | | [facility] | | | Status | | | LABORATORY | | + + + + + + | CROSSMATCH | COMPATIBLETesting | | [facility] | | | RESULT | performed at [facility];[address] | | LABORATORY | | | | [address];[place], [place] | | | | | | [address] | | | | + + + + + + + + | Specimen | + + | | + + + + + + + | Performing | Address | City/State/Zipcode | Phone Number | | Organization | | | | + + + + + | [facility] | [address] | [place] [address] | [phone] | + + + + + documented in this encounter Visit Diagnoses Not on filedocumented in this encounter
--- OUTSIDE RECORDS SUMMARY | ~2020-04-05 | XMS | Encounter Summary ---
Demographics + + + | Address | [address] | | | [place] [address] | + + + | Home Phone | | + + + | Preferred Language | Unknown | + + + | Marital Status | | + + + | Sabianist Affiliation | Unknown | + + + [...] [place], [place] | | | | | [address] | | + + + + + | Lydia Palm | ECON | [place], [place] | | | | | [address] | | + + + + + | melinda METZ" | ECON | [place], [place] | | | [place] | | [address] | | + + + + + | Jose C Oconnor | ECON | [address] | | | | | [place] | | | | | [address] | | + + + + + Care Team Providers + +------+ + | Care Relief Operator Name | Role | Phone | [...] | daily thru | [address] | [place] [address] | | | | | February 23, | [place], [place] | Phone: | | | | | Peritonitis | [address] | [phone] | | | | | Procedures | Phone: | Fax: | | | | | [place] | [phone] | [phone] | | | | | MEROPENEM, | Fax: | | | | | | [address] [place] | [phone] | | | | | | IV [...] | +--------+ + + + + | 02/21/ | Hospital | [facility] | Unknown, | Peritonitis | | 2019 | Encounter | [facility] | MD Iris Kinney | associated with | | | | [address] | [phone] | peritoneal dialysis, | | | | [place] | | initial encounter | | | | [address] | | (HCC) (Primary Dx) | | | | [phone] | | | +--------+ + + + [...] + + + | Blood Pressure | 113/71 | 02/21/2019 6:05 PM | | | | | PDT | | + + + + + | Pulse | 75 | 02/21/2019 6:05 PM | | | | | PDT | | + + + + + | Temperature | 36.2 C (97.2 F) | 02/21/2019 5:08 PM | | | | | PDT | | + + + + + | Respiratory Rate | 16 | 02/21/2019 6:05 PM | | | | | PDT | | + + + + + | Oxygen Saturation | 99% | 02/21/2019 5:08 PM | | | | | PDT [...] encounter Progress Notes Gifty Diaz RN - 02/21/2019 6:05 PM PDTFormatting of this note might be diffe rent from the original. Vitals: 02/21/19 1708 02/21/19 1805 BP: 120/74 113/71 Pulse: 90 75 Resp: 16 16 Temp: 36.2 C (97.2 F) TempSrc: Oral SpO2: 99% Administrations This Visit meropenem (MERREM) 500 mg in sodium chloride 0.9% 50 mL IVPB Admin Date 02/21/2019 Action New Bag Dose 500 mg Rate 50 mL/hr Route Intravenous Administered By Gifty Diaz RN Monitored throughout treatment; treatment completed without untoward effects from medicatio n noted. Next visit tomorrow 1730. Verbalizes understanding of plan of care. VS stable. Disc harged ambulatory with spouse to home in stable condition. Electronically signed by: Gifty Diaz RN 02/21/2019 18:26 mily, Gifty Diaz RN - 019 5:09 PM PDT Vitals: 02/21/19 1708 BP: 120/74 Pulse: 90 Resp: 16 Temp: 36.2 C (97.2 F) Ramona Oconnor received into room 442, independent ambulation accompanied by spouse. State s here for antibiotic infusion. Reports no change in condition, plan of care since last MD ruchi simental. Alert, oriented x 4, cooperative. Electronically signed by: Gifty Diaz RN 02/21/2019 17:09 documented in this encounter Plan of Treatment [...] 500 mg in | New Bag | 02/22/20 | 500 mg | 50 mL/hr | | | sodium chloride 0.9% 50 mL IVPB | | 19 5:31 | | | | | 500 mg, Intravenous, Administer | | PM PDT | | | | | over 60 Minutes, ONCE, Sun | | | | | | | 02/21/19 at 1730, For 1 dose, | | | | [...]
--- OUTSIDE RECORDS SUMMARY | ~2020-04-05 | XMS | Encounter Summary ---
Demographics + + + | Address | [address] | | | [place] [address] | + + + | Home Phone | | + + + | Preferred Language | Unknown | + + + | Marital Status | | + + + | Catholic Affiliation | Unknown | + + + [...] [place], [place] | | | | | [address] | | + + + + + | Lydia Palm | ECON | [place], [place] | | | | | [address] | | + + + + + | melinda METZ" | ECON | [place], [place] | | | [place]ba | | [address] | | + + + + + | Jose C Oconnor | ECON | [place] | | | | | [place] | | | | | [address] | | + + + + + Care Team Providers + +------+ + | Care Anesthesiologists' Assistant Name | Role | Phone | [...] + + | 01/24/ | Office | [facility] | Kylie Alves DNP | ESRD (end stage | | 2020 | Visit | VASCULAR SURGERY | [address] | renal disease) on | | | | [address] | [place] | dialysis (HCC) | | | | [place], [place] | [address] | (Primary Dx); | | | | [address] | | Hemodialysis access, | | | | [phone] | | AV graft (HCC) | +--------+---------+ [...] documented as of this encounter Progress Notes Kylie Alves DNP - 01/25/2020 2:00 PM [facility] [address] [place] [address] [place] [address] Office: [phone] DATE OF VISIT: 01/25/2020 PATIENT NAME: Ramona [...] which was performed on 01/11/[address] [facility] Operating Room. The pa bakari is not having any pain. The patient denies fever, wound drainage, increasing redness, pus, increasing pain, increasing swelling. Physical examination revealed surgical incision w hich is healing well without signs of infection. She has good thrills over the AVG site. Perla carranza's product mgr is Dr. Chi. The patient is receiving hemodialysis on Friday, Friday and Friday via right upper chest tunneled catheter at [place]. She reports they used her right arm [...]
--- OUTSIDE RECORDS SUMMARY | ~2020-04-05 | XMS | Encounter Summary ---
Demographics + + + | Address | [address] | | | [place] [address] | + + + | Home Phone [...] [place], [place] | | | | | [address] | | + + + + + | Lydia Palm | ECON | [place], [place] | | | | | [address] | | + + + + + | melinda METZ" | ECON | [place], [place] | | | [place] | | [address] | | + + + + + | Jose C Oconnor | ECON | [place] | | | | | [place] | | | | | [address] | | + + + + + Care Team Providers + +------+ + | Care Engraver Rubber Name | Role | Phone | + +------+ + | No, Physician | PCP | Unavailable | + +------+ + Encounter Details +--------+ + + + + | Date | Type | Department | Care Team | Description | +--------+ + + + + | 06/21/ | Orders Only | [facility] | Kylie Alves DNP | | | 2019 | | VASCULAR SURGERY | [address] | | | | | ULTRASOUND [address] | [facility] [place] | | | | | [place] | [address] | | | | | [place] | | | | | | [address] | | | | | | [phone] | | | +--------+ + + + [...] | | GRAFT FISTULA | e | 3:55 PM | | procedure are in the | | | | PDT | | results section. | + +--------+ + + + documented in this encounter Results VAS Hemodialysis Graft Fistula (06/21/2019 3:55 PM PDT) + + | Specimen | [...] Volume flow: 914 cc/min: Diameter: 7.6 mm. Phoenix loop: | | | PSV: 52 cm/sec. Volume flow: 236 cc/min: Diameter: 6 9.6 mm. | | | Efferent loop: PSV: 71 cm/sec. Volume flow: 740 cc/min: Diameter: | | | 9.1 mm. Vein outflow: 68 cm/s | | + + + + + | Procedure Note | + + | Migue Schumacher Conversion - 07/16/2019 9:41 AM PDT UV HEMODIALYSIS ACCESS | | DUPLEX-COMPLICATIONSCLINICAL [...] cm/sec. Volume flow: 914 cc/min: Diameter: 7.6 mm.[place]enix loop: PSV: 52 cm/sec. | | Volume flow: 236 cc/min: Diameter: 6 9.6 mm.Efferent loop: PSV: 71 cm/sec. Volume flow: | | 740 cc/min: Diameter: 9.1mm.Vein outflow: 68 cm/sIMPRESSION: Patent axillary artery to | | axillary vein loop graph.Flow volumes ranges from 263-914 mL/minute.Elevated velocities | | at the arterial and vein anastomosis.Signed by: Daphney Dumont ChetSign Date/Time: | | 06/22/2019 12:08 PM | |Afferent loop: 70 cm/sec. Volume flow: 914 cc/min: Diameter: 7.6 mm. | |Phoenix loop: PSV: 52 cm/sec. Volume flow: 236 [...] Date/Time: 06/22/2019 12:08 PM | + + documented in this encounter Visit Diagnoses Not on filedocumented in this encounter
--- OUTSIDE RECORDS SUMMARY | ~2020-04-05 | XMS | Encounter Summary ---
Demographics + + + | Address | [address] | | | [place] [address] | + + + | Home Phone | | + + + | Preferred Language | Unknown | + + + | Marital Status | | + + + | Caodaism Affiliation | Unknown | + + + | Race | Unknown | + + + | Ethnic Group | Unknown | + + + Author + + + | Author | [facility] | | | and [place] | + + + | Organization | [facility] | | | and [place] | + + + | Address | Unknown | + + + | Phone | Unavailable | + + + Support + + + + + | Name | Relationship | Address | Phone | + + + + + | Lyubov Smalls | ECON | [place], [place] | | | | | [address] | | + + + + + | Lydia Palm | ECON | [place], [place] | | | | | [address] | | + + + + + | melinda METZ" | ECON | [place], [place] | | | [place] | | [address] | | + + + + + | Jose C Oconnor | ECON | [place] | | | | | [place] | | | | | [address] | | + + + + + Care Team Providers + +------+ + | Care Stained Glass Glazier Name | Role | Phone | + [...] Alves, | | | | | | ESRD on | DNP [address] | | | | | | dialysis | [address] | | | | | | ([facility]) | [address] | | | | | | Procedures | [place] | | | | | | VAS Lower | [address] | | | | | | Extremity | Phone: | | | | | | Vein Mapping | [phone] | | | | | | Bilat VAS | Fax: | | | | | | Lower | [phone] | | | | | | Extremity | | | | | | | Vein Mapping | | | | | | | Right | | | +--------+--------+ + + + + Diagnostic/Screening (Routine) +--------+--------+ + + + + | Status | Reason | Specialty | Diagnoses / | Referred By | Referred To | | | | | Procedures | Contact | Contact | +--------+--------+ + + + + | Closed | | Radiology | Diagnoses | Kylie Alves, | | | | | | ESRD on | DNP [address] | | | | | | dialysis | [address] | | | | | | ([facility]) | [address] | | | | | | Procedures | [place] | | | | | | VAS Arm | [address] | | | | | | Mapping For | Phone: | | | | | | Dialysis | [phone] | | | | | | Right | Fax: | | | | | | | [phone] | | +--------+--------+ + + + + Encounter Details +--------+ + + + + | Date | Type | Department | Care Team | Description | +--------+ + + + + | 12/21/ | Orders Only | [facility] | Kylie Alves DNP | ESRD on dialysis | | 2020 | | VASCULAR SURGERY | [address] | ([facility]) (Primary Dx) | | | | [address] | [place] [place], [place] | | | | | [place], [place] | [address] | | | | | [address] | | | | | | [phone] | | | +--------+ + + + [...] on filedocumented as of this encounter Results VAS Arm Mapping For Dialysis Right (12/23/2019 4:09 PM PST) + + | Specimen | + + | | + + + + + | Impressions | Performed At | + + + | 1. Failed right brachial basilic arteriovenous fistula. 2. No deep | [facility] | | venous thrombosis. 3. Cephalic venous measurements as above. 4. | | | Normal arterial inflow. Signed by: Bianka Joshua David | | | Sign Date/Time: 12/24/2019 9:09 AM | | + + + + + + | Narrative | Performed At | + + + | DIALYSIS ACCESS VEIN MAPPING RIGHT CLINICAL INFORMATION: | [facility] | | Evaluate for right AVF patency and mapping. COMPARISON: US | | | HEMODIALYSIS ACCESS FISTULA OR GRAFT (06/21/2019); US HEMODIALYSIS | | | ACCESS FISTULA OR GRAFT (04/22/2019); CT NEEDLE BIOPSY KIDNEY | | | (10/26/2015); PROCEDURE: Duplex and color flow Doppler evaluation | | | of the upper extremity. FINDINGS: Diameter/depth in mm: | | | Cephalic Vein: Insertion: 4.1/14.3 Upper humerus to elbow: 3.5/7.2 | | | Mid humerus: 3.0/4.7 Elbow: 2.1/2.9 Upper forearm: 2.1/5.5 Mid | | | forearm: Too small/too small Wrist: too small/too small Basilic | | | Vein: Upper humerus: Occluded brachial basilic arteriovenous fistula/ | | | Brachial Vein: Upper humerus: 3.8 Mid humerus: 3.8 Elbow: | | | 3.0 Axillary vein: 6.5 Brachial artery distal: 13.0 Radial | | | artery wrist: Not assessed Ulnar artery wrist: Not assessed | | | Normal arterial inflow. No venous thrombosis. Occluded basilic | | | vein. | | + + + + + | Procedure Note | + + | Endy, Rad Results In 12/24/2019 9:12 AM PST | | DIALYSIS ACCESS VEIN MAPPING RIGHT | | | | CLINICAL INFORMATION: | | Evaluate for right AVF patency and mapping. | | | | COMPARISON: | | US HEMODIALYSIS ACCESS FISTULA OR GRAFT (06/21/2019); US HEMODIALYSIS | | ACCESS FISTULA OR GRAFT (04/22/2019); CT NEEDLE BIOPSY KIDNEY | | (10/26/2015); | | | | PROCEDURE: | | Duplex and color flow Doppler evaluation of the upper extremity. | | | | FINDINGS: | | Diameter/depth in mm: | | | | Cephalic Vein: | | Insertion: 4.1/14.3 | | Upper humerus to elbow: 3.5/7.2 | | Mid humerus: 3.0/4.7 | | Elbow: 2.1/2.9 | | Upper forearm: 2.1/5.5 | | Mid forearm: Too small/too small | | Wrist: too small/too small | | | | Basilic Vein: | | Upper humerus: Occluded brachial basilic arteriovenous fistula/ | | | | | | Brachial Vein: | | Upper humerus: 3.8 | | Mid humerus: 3.8 | | Elbow: 3.0 | | | | Axillary vein: 6.5 | | Brachial artery distal: 13.0 | | Radial artery wrist: Not assessed | | Ulnar artery wrist: Not assessed | | | | Normal arterial inflow. No venous thrombosis. Occluded basilic vein. | | | | IMPRESSION: | | 1. Failed right brachial basilic arteriovenous fistula. | | 2. No deep venous thrombosis. | | 3. Cephalic venous measurements as above. | | 4. Normal arterial inflow. | | | | | | | | | | | | Signed by: Bianka Joshua, Shad | | Sign Date/Time: 12/24/2019 9:09 AM | + + + +---------+ + + | Performing | Address | City/State/Zipcode | Phone Number | | Organization | | | | + +---------+ + + | [facility] | | | | + +---------+ + + VAS Lower Extremity Vein Mapping Bilat (12/23/2019 4:09 PM PST) + + | Specimen | + + | | + + + + + | Impressions | Performed At | + + + | Bilateral lower extremity vein mapping. Measurements above. | [facility] | | Signed by: Daphney Dumont Chet Sign Date/Time: 12/24/2019 7:52 AM | | + + + + + + | Narrative | Performed At | + + + | ULTRASOUND VEIN MAPPING, LOWER EXTREMITIES CLINICAL | [facility] | | INFORMATION: vein map for dialysis access COMPARISON: None. | | | PROCEDURE: Duplex evaluation of the veins of the bilateral | | | extremities. All measurements in mm. FINDINGS: Diameter/depth in | | | mm: Right greater saphenous vein: Saphenofemoral junction: | | | 6.6/41.9. Proximal thigh: 4.9/11.1. Mid thigh: 4.1/9.1. Distal | | | thigh: 4.5/5.0. Knee: 4.6/4.4. Proximal calf: 4.0/4.7. Mid calf: | | | 3.4/5.6. Distal calf: 3.3/4.0. Left greater saphenous vein: | | | Saphenofemoral junction: 6.0/41.3. Proximal thigh: 3.9/9.8. Mid | | | thigh: 4.1/11.5. Distal thigh: 3.4/7.4. Knee: 3.1/4.1. Proximal | | | calf: 3.3/3.0. Mid calf: 3.4/4.7. Distal calf: 3.4/4.5 Right | | | common femoral artery measures 8.7 mm. Right common femoral vein | | | measures 11.9 mm with a depth 37.4 mm. Left common femoral artery | | | measures 6.2 mm. Left common femoral vein measures 11.1 mm with a | | | depth of 40.5 mm. | | + + + + + | Procedure Note | + + | Endy, Rad Results In 12/24/2019 7:56 AM PST | | ULTRASOUND VEIN MAPPING, LOWER EXTREMITIES | | | | CLINICAL INFORMATION: | | vein map for dialysis access | | | | COMPARISON: | | None. | | | | PROCEDURE: | | Duplex evaluation of the veins of the bilateral extremities. All | | measurements in mm. | | | | FINDINGS: | | Diameter/depth in mm: | | | | Right greater saphenous vein: | | Saphenofemoral junction: 6.6/41.9. | | Proximal thigh: 4.9/11.1. | | Mid thigh: 4.1/9.1. | | Distal thigh: 4.5/5.0. | | Knee: 4.6/4.4. | | Proximal calf: 4.0/4.7. | | Mid calf: 3.4/5.6. | | Distal calf: 3.3/4.0. | | | | Left greater saphenous vein: | | Saphenofemoral junction: 6.0/41.3. | | Proximal thigh: 3.9/9.8. | | Mid thigh: 4.1/11.5. | | Distal thigh: 3.4/7.4. | | Knee: 3.1/4.1. | | Proximal calf: 3.3/3.0. | | Mid calf: 3.4/4.7. | | Distal calf: 3.4/4.5 | | | | Right common femoral artery measures 8.7 mm. | | Right common femoral vein measures 11.9 mm with a depth 37.4 mm. | | | | Left common femoral artery measures 6.2 mm. | | Left common femoral vein measures 11.1 mm with a depth of 40.5 mm. | | | | IMPRESSION: | | Bilateral lower extremity vein mapping. Measurements above. | | | | | | | | Signed by: Daphney Dumont Chet | | Sign Date/Time: 12/24/2019 7:52 AM | + + + +---------+ + [...]
--- OUTSIDE RECORDS SUMMARY | ~2020-04-05 | XMS | Encounter Summary ---
Demographics + + + | Address | [address] | | | [place] [address] | + + + | Home Phone | | + + + | Preferred Language | Unknown | + + + | Marital Status | | + + + | Adventist Affiliation | Unknown | + + + | Race | Unknown | + + + | Ethnic Group | Unknown | + + + Author + + + | Author | [facility] | | | and [place] | + + + | Organization | [facility] | | | and [place] | + + + | Address | Unknown | + + + | Phone | Unavailable | + + + Support + + + + + | Name | Relationship | Address | Phone | + + + + + | Lyubov Smalls | ECON | [place], [place] | | | | | [phone] | | + + + + + | Lydia Palm | ECON | [place], [place] | | | | | [address] | | + + + + + | melinda METZ" | ECON | [place], [place] | | | reba | | [phone] | | + + + + + | Jose C Oconnor | ECON | [place] | | | | | [place] | | | | | [address] | | + + + + + Care Team Providers + +------+ + | Care Dairy Bar Manager Name | Role | Phone | [...] + + | 09/03/ | Surgery | [facility] | Mundo Ramos MD | Resection of left | | 2019 | | [facility] | [address] | arm AV graft with | | | | OPERATING ROOM [address] | [address] [place], [place] | wound vac placement | | | | [address] | [address] | | | | | [place], [place] | [phone] | | | | | [address] | | | | | | [phone] | | | +--------+---------+ + + + [...] + + + | Blood Pressure | 142/82 | 09/08/2019 12:25 PM | | | | | PDT | | + + + + + | Pulse | 77 | 09/08/2019 12:25 PM | | | | | PDT | | + + + + + | Temperature | 37.3 C (99.1 F) | 09/08/2019 12:25 PM | | | | | PDT | | + + + + + | Respiratory Rate | 16 | 09/08/2019 12:25 PM | | | | | PDT | | + + + + + | Oxygen Saturation | 99% | 09/08/2019 12:25 PM | | | | | PDT | | + + + + + | Inhaled Oxygen | - | - | | | Concentration | | | | + + + + + | Weight | 81.7 kg (180 lb 1.9 | 09/08/2019 10:23 AM | | | | oz) | PDT | | + + + + + | Height | 157.5 cm (5' 2") | 09/05/2019 7:00 AM | | | [...] might be different f rom the original. [facility] Service: Hospitalist Discharge Summary Date of Admission: 09/03/2019 Date of Discharge: 09/08/2019 Discharge Provider: Herberth Escoto MD Consulting Provider: Dr Cara ALLEN, Dr Ramos - Vascular Surgery Discharge Diagnoses: Principal Problem: Infected prosthetic vascular graft, initial encounter ESRD BRIEF HISTORY OF PRESENTATION: Ramona Oconnor is a 39 y.o. female with ESRD, HTN, who was admitted for infec medina AV graft in the E, who had inititally had L arm AV graft using bovine carotid artery J une 2018, course complicated by wound dehiscence, underwent wound washout and wound vac placement 05/26/19, Taken back to [place] 07/08/19 due to graft being exposed for another washout and replacement of wound vac, which was eventually removed. Patient was seen in Vascular [facility] clinic 08/24/19 for wound check and graft [...] MD [address] Raymundo [facility] [id number] Cathie Marroquin MD [address] [facility] [phone] In 2 weeks [facility] VASCULAR SURGERY [address] [place] [facility] [phone] In 1 week Discharge Medications New Medications [...] communication is reques medina for any clarifications. Herberth Escoto MD 09/08/2019 [...] Pharmacy/Medication needs: other (see comments)(stevane justin in [place]) Notes: Pt ready for discharge, family to transfer, gas voucher given to Pt family for manuel haskins in transportation needs. Pt has appointment for tomorrow with [facility] wound care center at 1430. Pt will see dialysis on Friday to restart and get IV ABX. Electronically signed: Florentino Faye RN 09/08/2019 13:03 Nisha Lucio RN - 09/08/2019 10:51 AM [facility] Service: Wound/Ostomy Care Progress Note Patient has upcoming discharged plan. Current plan of care is to have NPWT dressing changed tomorrow at [facility]. This is within the 72 hour time frame. To help minimize pain and maximize healing potential with wound VAC dressing will not be changed today. Patient has H omeVAC in room that will be used when traveling. Versatel given to patient for next dressing change. Two canisters for ActiVAC given. Hospit al VAC D/muna in [facility]. Nisha Weston RN 10:53 09/08/19 Eliazar Renee [...] Kincaid MD - 09/08/2019 9:40 AM PDT [facility] Service: NEPHROLOGY Progress Note Ramona Oconnor 39 y.o. [id number] 401/401-01 female No Physician on file Hospital [...] 10/25/15 showed normal sized kidneys. 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 GERD (gastroesophageal reflux disease) Hypercalcemia 09/07/2017 Hyperphosphatemia [...] STENTS ; Surgeon: Qasim Pederson MD; Location: [facility] AV FISTULA REPAIR Left 09/03/2019 Procedure: Resection of left arm AV graft with wound vac placement; Surgeon: Lexi Posada; Location: [facility] MA[facility] CATHETER REMOVAL 02/04/2019 Procedure: DIALYSIS CATHETER - REMOVAL; Surgeon: Qasim Pederson MD; Location: [facility] OR ; Service: Vascular; Laterality: N/A; Infected PD catheter removal DEBRIDEMENT Left 07/08/2019 Procedure: LEFT AXILLA WOUND DEBRIDEMENT, WASHOUT AND POSSIBLE WOUND VAC PLACEMENT; Surge on: Qasim Pederson MD; Location: [facility] MA[facility] OR OTHER SURGICAL HISTORY Left 03/11/2019 AV FISTULA PLACEMENT - Procedure: AV FISTULA; Surgeon: Qasim Pederson MD; Location: [facility] OR; Service: Vascular; Laterality: Left; OTHER SURGICAL HISTORY HARDWARE PRESENT OTHER SURGICAL HISTORY Right 01/2019 chest wall OTHER SURGICAL HISTORY Left 05/06/2019 AV GRAFT CREATION - Procedure: AV GRAFT CREATION; Surgeon: Qasim Pederson MD; Location: [facility] MA[facility] OR; Service: Vascular; Laterality: Left; bovine carotid graft OTHER SURGICAL HISTORY Left 05/26/2019 WOUND VAC PLACEMENT/REPLACEMENT - Procedure: WOUND VAC - PLACEMENT - REPLACEMENT; Surgeon : Qasim Pederson MD; Location: [facility] MAIN OR; Service: Vascular; Laterality: Left; PERITONEAL CATHETER PLACEMENT/REMOVAL 10/28/2015 Procedure: LAPAROSCOPIC - PERITONEAL DIALYSIS CATH INSERTION; Surgeon: Mundo Ramos MD; Lo cation: [facility] MAIN OR; Service: Vascular; Laterality: N/A; UPPER GASTROINTESTINAL ENDOSCOPY 09/10/2017 Procedure: ESOPHAGOGASTRODUODENOSCOPY; Surgeon: Beena Peters MD; Location: [facility] ENDOSCOP Y; Service: Gastroenterology; Laterality: N/A; [...] earlier and charting completed later Dictation software, [employer], used which may contain error for similar sounding words even af ter review. Personal communication requested for any clarification. Florentino Ling RN - 09/08/2019 9:30 AM PDTCar e Management Follow-Up Readmission Risk: Medium Current Discharge Plan Anticipated Discharge Disposition: home Expected DC Date: Barriers to Discharge: Steps Taken Toward Discharge: Faxed Referral to wound care to [facility] and calledNeelima has accepted and schedule appointment for 09/09/2019 @ 1430 Next Steps: d/c Community Support Services Current Outpt/Agency/Support Groups: outpatient hemodialysis (specify) Community Agency Name: [facility] wound clinic Other Resources: Discharge Transportation Transportation Needs: none Family will provide Notes: Pt has appointment tomorrow for wound clinic at 1430. Pt and Family aware. Electronically signed: Florentino Faye RN 09/08/2019 9:30 Eliazar Renee PharmD - 09/07/2019 1:33 PM PDTVancom ycin Monitoring Day 5 Serum creatinine: 6.6 mg/dL (H) 09/07/19 0431 Estimated creatinine clearance: 12 mL/min (A) WBC = 8.66 K/uL ESRD on HD, last HD on 09/07 Plan per protocol: No plan HD today. No dose 09/07/2019 13:32 Pharmacist: ZHIHAN HUMPHRIES, PharmD Linden Kincaid MD - 09/07/2019 11:35 AM PDT [facility] Service: NEPHROLOGY Progress Note Ramona Oconnor 39 y.o. [id number] 401/401-01 female No Physician on file Hospital [...] 10/25/15 showed normal sized kidneys. 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 GERD (gastroesophageal reflux disease) Hypercalcemia 09/07/2017 Hyperphosphatemia [...] STENTS ; Surgeon: Qasim Pederson MD; Location: [facility] AV FISTULA REPAIR Left 09/03/2019 Procedure: Resection of left arm AV graft with wound vac placement; Surgeon: Lexi Posada; Location: [facility] CATHETER REMOVAL 02/04/2019 Procedure: DIALYSIS CATHETER - REMOVAL; Surgeon: Qasim Pederson MD; Location: [facility] MAIN OR ; Service: Vascular; Laterality: N/A; Infected PD catheter removal DEBRIDEMENT Left 07/08/2019 Procedure: LEFT AXILLA WOUND DEBRIDEMENT, WASHOUT AND POSSIBLE WOUND VAC PLACEMENT; Surge on: Qasim Pederson MD; Location: [facility] OR OTHER SURGICAL HISTORY Left 03/11/2019 AV FISTULA PLACEMENT - Procedure: AV FISTULA; Surgeon: Qasim Pederson MD; Location: [facility] OR; Service: Vascular; Laterality: Left; OTHER SURGICAL HISTORY HARDWARE PRESENT OTHER SURGICAL HISTORY Right 01/2019 chest wall OTHER SURGICAL HISTORY Left 05/06/2019 AV GRAFT CREATION - Procedure: AV GRAFT CREATION; Surgeon: Qasim Pederson MD; Location: [facility] OR; Service: Vascular; Laterality: Left; bovine carotid graft OTHER SURGICAL HISTORY Left 05/26/2019 WOUND VAC PLACEMENT/REPLACEMENT - Procedure: WOUND VAC - PLACEMENT - REPLACEMENT; Surgeon : Qasim Pederson MD; Location: [facility] MAIN OR; Service: Vascular; Laterality: Left; PERITONEAL CATHETER PLACEMENT/REMOVAL 10/28/2015 Procedure: LAPAROSCOPIC - PERITONEAL DIALYSIS CATH INSERTION; Surgeon: Mundo Ramos MD; Lo cation: [facility] OR; Service: Vascular; Laterality: N/A; UPPER GASTROINTESTINAL ENDOSCOPY 09/10/2017 Procedure: ESOPHAGOGASTRODUODENOSCOPY; Surgeon: Beena Peters MD; Location: [facility]; Service: Gastroenterology; Laterality: N/A; [...] earlier and charting completed later Dictation software, [employer], used which may contain error for similar sounding words even af ter review. Personal communication requested for any clarification. Man Jha PA-C - 09/07/2019 9:03 AM PDTFo rmatting of this note might be different from the original. [facility] Service: Vascular Surgery Progress Note Post-Op [...] 08/26 patient was emergently t ransferred to [facility] for severe bleeding from left axilla. [...] CV: No peripheral edema, rate regular SKIN: [place], warm, dry without rash/lesion MS: ROM not limited, no digital cyanosis, normal gait NEURO: Conversant, A&O times 3 PSYCH: appropriate affect, speech and tone, judgement and insight intact Vascular: Wound vac holding suction in left axilla. Mild erythema noted. Distal pulses int act. Pan wrap in place. Arm swelling decreased from [...] Esparza MD - 09/07/2019 8:31 AM PDT [facility] Adult Hospitalist Progress Note Hospital Day: 4 Patient Summary: 39 y/o F with ESRD, HTN, who was admitted for infected AV graft in the E, who had initita lly had L arm [...] for input(s): IRON, TIBC, PCTSAT, FERRITIN, TSH, [id number], FOLATE in the last 168 hours. No [...] least 50% of time was spent in [id number]-gl-atyz coordination of care and counseling. All questions [...] Steps Taken Toward Discharge: Followed up on [facility] referral Next Steps: Face to face needs to be written at discharge and faxed to [facility] . Community Support Services Current Outpt/Agency/Support Groups: outpatient hemodialysis (specify) Community Agency Name: [facility] Other Resources: [facility] Discharge Transportation Transportation Needs: none Notes: CM called and followed up on referral sent yesterday. Fly Chan received referral and accepting pending face to face home health order at discharge. ADDENDUM: CM discussed with Pt again on home health, Pt states she would like to continue w ound vac dressing changes at [facility] wound care [place] and has her own wound vac. She w as getting dressing changes Friday, and Friday. I called the wound clinic and Antonio arleen Dustin wants new wound vac orders in place before scheduling appt. Dr. Escoto notified. Dr. Pederson was following prior to admission for wound care. Electronically signed: Florentino Faye RN 09/07/2019 8:23 Eliazar Renee Pharm D - 09/06/2019 3:38 PM PDTVancomycin Monitoring Day 4 Serum creatinine: 11.3 mg/dL (H) 09/06/19 0514 Estimated creatinine clearance: 7 mL/min (A) WBC = 8.65 K/uL Dialysis today Plan per protocol: Vancomycin 1000 mg IV once after dialysis today. 09/06/2019 15:36 Pharmacist: ELIAZAR HUMPHRIES PharmD Amrita Lindsey RN - 09/06/2019 12:33 PM PDT [facility] Service: Wound Care NPWT Note Hospital Day: [...] to follow with you. JUJU Saldaña RN [facility] 09/06/19 12:38 Florentino Granados RN - 09/06/2019 11:16 AM PDTCare Management Follow-Up Readmission Risk: Medium Current Discharge Plan Anticipated Discharge Disposition: home Expected DC Date: Barriers to Discharge: Steps Taken Toward Discharge: called Soo mclaughlin for [facility] and notified her o f IV ABX with HD, sent referral to [facility] for wound Vac care. Next Steps: follow-up with home health on acceptance. Community Support Services Current Outpt/Agency/Support Groups: outpatient hemodialysis (specify) Community Agency Name: Other Resources: Discharge Transportation Transportation Needs: none Notes: Called Soo mclaughlin for [facility] and notified her of HD with IV ABX, Soo will fol low. I sent referral to [facility]. CM will follow up with HH for wound va c. Wound Vac pre-authorization form signed and sent to [facility] [employer]. Electronically signed: Florentino Faye RN 09/06/2019 11:16 Cathie Saab MD - 09/06/2019 9:45 AM PDTFormatting of this note might be different from the ave troy [facility] Service: Infectious Diseases Progress Note Hospital [...] intact. Follows commands. LABS: MICRO Culture, Blood [[id number]] Collected: 09/03/192015 Order Status: Completed Specimen: Blood Updated: 09/05/19 0521 Special Requests DIALYSIS PORT Special Requests Testing performed at [facility];[address] [place] [address] RESULT NO GROWTH 2 DAYS RESULT Testing performed at [address] [address] Comment: Testing performed at [facility], [address] [place] [address] Culture, Tissue, Smear, with Anaerobes [[id number]] (Abnormal) Collected: 09/03/191722 Order Status: Completed Specimen: Tissue from Arm, Left Updated: 09/06/19 0915 Special Requests L ARM Special Requests Testing performed at [facility];[address] [place] [address] Gram Stain Result -- 3+ WBC'S SEEN Gram Stain Result -- 4+ GRAM POSITIVE COCCI Gram Stain Result [facility] at [facility], [address] [place] [address] RESULT --Abnormal 2+ ENTEROCOCCUS FAECALIS Aminoglycosides (except for high-level resistance testing), cephalosporins, clindamycin, an d trimethoprim-sulfamethoxazole may appear active in vitro but they are not effective clinic ally. Abnormal Susceptibility Enterococcus faecalis (1) Antibiotic Interpretation Vitek 2XL Method Status Ampicillin Sensitive SUSCEPTIBLE CORINNE Preliminary Penicillin G Sensitive SUSCEPTIBLE CORINNE Preliminary Levofloxacin Sensitive SUSCEPTIBLE CORINNE Preliminary Vancomycin Sensitive SUSCEPTIBLE CORINNE Preliminary Testing performed at [facility], [address] [place] [address] Culture, Wound, Smear, w/Anaerobe [[id number]] (Abnormal) Collected: 09/03/19 5217 Order Status: Completed Specimen: Tissue from Arm, Left Updated: 09/06/19 0913 Special Requests LT ARM GRAFT SITE Special Requests Testing performed at [facility];[address] [place] [address] Gram Stain Result WBC'S SEEN Gram Stain Result GRAM POSITIVE COCCI Gram Stain Result STAIN PERFORMED ON CYTOSPIN Gram Stain Result Testing performed at [facility];[address] [place] [address] RESULT --Abnormal 2+ ENTEROCOCCUS FAECALIS Aminoglycosides (except for high-level resistance testing), cephalosporins, clindamycin, an d trimethoprim-sulfamethoxazole may appear active in vitro but they are not effective clinic ally. Abnormal Susceptibility Enterococcus faecalis (1) Antibiotic Interpretation Vitek 2XL Method Status Ampicillin Sensitive SUSCEPTIBLE CORINNE Preliminary Penicillin G Sensitive SUSCEPTIBLE CORINNE Preliminary Levofloxacin Sensitive SUSCEPTIBLE CORINNE Preliminary Vancomycin Sensitive SUSCEPTIBLE CORINNE Preliminary Testing performed at [facility], [address] [place] [address] All labs were reviewed.Data: Recent Results (from [...] with HD ---blood cultures NGTD Dictation software, [employer], used which may contain error for similar sounding words even af ter review. Personal communication requested for any clarification. Portions of this chart may have been copied from previous notes for continuity of care purp ose Cathie Marroquin MD Infectious Diseases 09/06/2019 Abhijeet, Kaylen cason PA-C - 09/06/2019 9:36 AM PDTFormatting of this note might be different from the or iginal. [facility] Service: Vascular Surgery Progress Note Post-Op [...] removed. Patient was seen in clinic on 10/15 for another wo und check and graft was seen exposed in the wound. Patient was scheduled for another wound washout, graft removal, and wound vac placement. However, on 08/26 patient was emergently t ransferred to [facility] for severe bleeding from left axilla. [...] CV: No peripheral edema, rate regular SKIN: [place], warm, dry without rash/lesion MS: ROM not [...] Full code Man Jeronimo PA-C Vascular Surgery Brandin Green MD - 09/06/2019 8:04 AM PDT [facility] Service: Hospitalist Progress Note Pt: Ramona Oconnor AGE/SEX: 39 y.o. female ROOM: [facility]401-01 : 1980 PCP: No Physician on file [...] and vancomycin with hemodialysis. Currently case manag silvia is coordinating wound VAC and aftercare. SUBJECTIVE: [...] 2342 87.4 kg (192 lb 10.9 oz) 09/03/19 2010 89.5 kg (197 lb 5 oz) 09/03/19 [...] in coordination of care, seeing and managing eris villegas, review of data, coordination with staff, coordination with involved consultants, and including any scheduled multidisciplinary rounding focused on the patient. Dictation software, [employer], used which may contain error for similar [...] Kincaid MD - 09/05/2019 5:17 PM PDT [facility] Service: NEPHROLOGY Progress Note Ramona Oconnor 39 y.o. [id number] 401/401-01 female No Physician on file Hospital [...] 10/25/15 showed normal sized kidneys. 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 GERD (gastroesophageal reflux disease) Hypercalcemia 09/07/2017 Hyperphosphatemia [...] STENTS ; Surgeon: Qasim Pederson MD; Location: [facility] AV FISTULA REPAIR Left 09/03/2019 Procedure: Resection of left arm AV graft with wound vac placement; Surgeon: Lexi Posada; Location: [facility] MAIN OR CATHETER REMOVAL 02/04/2019 Procedure: DIALYSIS CATHETER - REMOVAL; Surgeon: Qasim Pederson MD; Location: [facility] MAIN OR ; Service: Vascular; Laterality: N/A; Infected PD catheter removal DEBRIDEMENT Left 07/08/2019 Procedure: LEFT AXILLA WOUND DEBRIDEMENT, WASHOUT AND POSSIBLE WOUND VAC PLACEMENT; Surge on: Qasim Pederson MD; Location: [facility] OR OTHER SURGICAL HISTORY Left 03/11/2019 AV FISTULA PLACEMENT - Procedure: AV FISTULA; Surgeon: Qasim Pederson MD; Location: [facility]; Service: Vascular; Laterality: Left; OTHER SURGICAL HISTORY HARDWARE PRESENT OTHER SURGICAL HISTORY Right 01/2019 chest wall OTHER SURGICAL HISTORY Left 05/06/2019 AV GRAFT CREATION - Procedure: AV GRAFT CREATION; Surgeon: Qasim Pederson MD; Location: [facility] OR; Service: Vascular; Laterality: Left; bovine carotid graft OTHER SURGICAL HISTORY Left 05/26/2019 WOUND VAC PLACEMENT/REPLACEMENT - Procedure: WOUND VAC - PLACEMENT - REPLACEMENT; Surgeon : Qasim Pederson MD; Location: [facility] MAIN OR; Service: Vascular; Laterality: Left; PERITONEAL CATHETER PLACEMENT/REMOVAL 10/28/2015 Procedure: LAPAROSCOPIC - PERITONEAL DIALYSIS CATH INSERTION; Surgeon: Mundo Ramos MD; Lo cation: [facility] MAIN OR; Service: Vascular; Laterality: N/A; UPPER GASTROINTESTINAL ENDOSCOPY 09/10/2017 Procedure: ESOPHAGOGASTRODUODENOSCOPY; Surgeon: Beena Peters MD; Location: [facility]; Service: Gastroenterology; Laterality: N/A; [...] earlier and charting completed later Dictation software, [employer], used which may contain error for similar sounding words even af ter review. Personal communication requested for any clarification. ee, Mundo Jain MD - 09/05/2019 10:39 AM PDTPatient s een and evaluated. Left arm wound vac in place and pain controlled. Patient is distraught this morning due to bad news she received from home. Plan for dressing change with wound ca re nurse tomorrow. Will continue to follow along with you. Please feel free to call with a ny questions or concerns. Mundo Ramos MD rsales, Cathie Buck MD - 09/05/2019 10:34 AM PDTFormatting of this note might be different from victor manuel mckeon. [facility] Service: Infectious Diseases Progress Note Hospital [...] intact. Follows commands. LABS: MICRO Culture, Blood [[id number]] Collected: 09/03/192015 Order Status: Completed Specimen: Blood Updated: 09/05/19 0521 Special Requests DIALYSIS PORT Special Requests Testing performed at [facility];[address] [place] [address] RESULT NO GROWTH 2 DAYS RESULT Testing performed [facility], [address] [place] [address] Comment: Testing performed at [facility], [address] [place] [address] Culture, Tissue, Smear, with Anaerobes [[id number]] Collected: 09/03/19 1723 Order Status: Completed Specimen: Tissue from Arm, Left Updated: 09/04/19 1800 Special Requests L ARM Special Requests Testing performed at [facility];[address] [place] [address] Gram Stain Result -- 3+ WBC'S SEEN Gram Stain Result -- 4+ GRAM POSITIVE COCCI RESULT CULTURE IN PROGRESS RESULT Testing performed at [facility], [address] [place] [address] Comment: Testing performed at [facility], [address] [place] [address] Culture, Wound, Smear, w/Anaerobe [[id number]] Collected: 09/03/19 1627 Order Status: Completed Specimen: Tissue from Arm, Left Updated: 09/04/19 1758 Special Requests LT ARM GRAFT SITE Special Requests Testing performed at [facility];[address] [place] [address] Gram Stain Result WBC'S SEEN Gram Stain Result GRAM POSITIVE COCCI Gram Stain Result STAIN PERFORMED ON CYTOSPIN Gram Stain Result Testing performed at [facility];[address] [place] [address] RESULT CULTURE IN PROGRESS RESULT Testing performed at [facility], [address] [place] [address] Comment: Testing performed at [facility], [address] [place] [address] All labs were reviewed.Data: Recent Results (from [...] emotional over some bad news Dictation software, [employer], used which may contain error for similar sounding words even af ter review. Personal communication requested for any clarification. Portions of this chart may have been copied from previous notes for continuity of care purp ose Cathie Marroquin MD Infectious Diseases 09/05/2019 Brandin Kennedy MD - 09/05/2019 8:19 AM PDTFormatting of this note might be different from the or iginal. [facility] Service: Hospitalist Progress Note Pt: Ramona Oconnor AGE/SEX: 39 y.o. female ROOM: [address] [place] [address] : 1980 PCP: No Physician on file [...] 2342 87.4 kg (192 lb 10.9 oz) 09/03/19 2010 89.5 kg (197 lb 5 oz) 09/03/19 [...] in coordination of care, seeing and managing eris bakari, review of data, coordination with staff, coordination with involved consultants, and including any scheduled multidisciplinary rounding focused on the patient. Dictation software, [employer], used which may contain error for similar [...] unable to calm down and very emotional, nurse schoolradha moy, notified and 1 mg ativan given IV. Wound vac in place. Chart check complete Azeb Chamorro RN 09/05/19 @6:26 Linden Kincaid MD - 09/04/2019 7:30 PM PDT [facility] Service: NEPHROLOGY Progress Note Ramona Oconnor 39 y.o. [id number] female No Physician on file Hospital [...] 10/25/15 showed normal sized kidneys. 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 GERD (gastroesophageal reflux disease) Hypercalcemia 09/07/2017 Hyperphosphatemia [...] STENTS ; Surgeon: Qasim Pederson MD; Location: [facility] AV FISTULA REPAIR Left 09/03/2019 Procedure: Resection of left arm AV graft with wound vac placement; Surgeon: Lexi Posada; Location: [facility] MA[facility] CATHETER REMOVAL 02/04/2019 Procedure: DIALYSIS CATHETER - REMOVAL; Surgeon: Qasim Pederson MD; Location: [facility] MAIN OR ; Service: Vascular; Laterality: N/A; Infected PD catheter removal DEBRIDEMENT Left 07/08/2019 Procedure: LEFT AXILLA WOUND DEBRIDEMENT, WASHOUT AND POSSIBLE WOUND VAC PLACEMENT; Surge on: Qasim Pederson MD; Location: [facility] OTHER SURGICAL HISTORY Left 03/11/2019 AV FISTULA PLACEMENT - Procedure: AV FISTULA; Surgeon: Qasim Pederson MD; Location: [facility]; Service: Vascular; Laterality: Left; OTHER SURGICAL HISTORY HARDWARE PRESENT OTHER SURGICAL HISTORY Right 01/2019 chest wall OTHER SURGICAL HISTORY Left 05/06/2019 AV GRAFT CREATION - Procedure: AV GRAFT CREATION; Surgeon: Qasim Pederson MD; Location: [facility] MA[facility] OR; Service: Vascular; Laterality: Left; bovine carotid graft OTHER SURGICAL HISTORY Left 05/26/2019 WOUND VAC PLACEMENT/REPLACEMENT - Procedure: WOUND VAC - PLACEMENT - REPLACEMENT; Surgeon : Qasim Pederson MD; Location: [facility] MAIN OR; Service: Vascular; Laterality: Left; PERITONEAL CATHETER PLACEMENT/REMOVAL 10/28/2015 Procedure: LAPAROSCOPIC - PERITONEAL DIALYSIS CATH INSERTION; Surgeon: Mundo Ramos MD; Lo cation: [facility] MAIN OR; Service: Vascular; Laterality: N/A; UPPER GASTROINTESTINAL ENDOSCOPY 09/10/2017 Procedure: ESOPHAGOGASTRODUODENOSCOPY; Surgeon: Beena Peters MD; Location: [facility] ENDOSCOP Y; Service: Gastroenterology; Laterality: N/A; [...] 24 hour(s)) CBC no Differential Collection Time: 09/04/19 4:59 Result Value Ref Range WBC 13.90 [...] earlier and charting completed later Dictation software, [employer], used which may contain error for similar sounding words even af ter review. Personal communication requested for any clarification. Yasmeen aCrter RN - 09/04/2019 4:47 PM PD TPatient [...] might be dif ferent from the original. [facility] Service: Hospitalist Progress Note Pt: Ramona Oconnor AGE/SEX: 39 y.o. female ROOM: [address] [place] [address] : 1980 PCP: No Physician on file [...] 09/03/19 2130 125/72 62 18 100 % 09/03/195 126/72 60 18 99 % 09/03/19 2100 141/79 60 18 100 % 09/03/195 137/81 66 16 100 % 09/03/192029 109/59 [...] reviewed. LABS: Recent Labs Lab 09/04/19 0459 09/03/19 1817 09/03/19 1630 09/03/19 1332 WBC 13.90* -- -- [...] vascular graft, initial encounter ASSESSMENT & PLAN ASHLEYTobi juan graft site infection, S/p removal of infected [...] in coordination of care, seeing and managing eris bakari, review of data, coordination with staff, coordination with involved consultants, and including any scheduled multidisciplinary rounding focused on the patient. Dictation software, [employer], used which may contain error for similar sounding words even af ter review. Personal communication requested for any clarification. Portions of this chart may have been copied from previous notes for continuity of care purp ose Mundo Garay MD - 7:30 AM PDTS/p removal of infected AV graft from left arm and left axilla with vei n patch repair of left axillary artery. Wound vac to suction and pain better controlled thi s AM with pain meds. Plan for dressing change with wound care tomorrow. If she tolerates d ressing changes, can be discharged with home wound vac changes. Awaiting final culture and sensitivities for appropriate long term acute care registered nurse antibiotic coverage. Please feel free to call with any questions or concerns. Mundo Ramos MD Loretta Gan, [facility] - 09/04/2019 12:57 AM PDTFormatting of this note might be different from the origi nal. Clinical Pharmacy Note: Vancomycin Day 1 Referring Provider: Dr. Marroquin Subjective / Objective Ramona Lien Thomasritchie 39 y.o. female Height: 157.5 cm Weight: [...] Procedure Component Value Units Date/Time Culture, Blood [[id number]] Collected: 09/03/192015 Order Status: Sent Lab Status: In process Updated: 09/03/192217 Specimen: Blood Culture, Tissue, Smear, with Anaerobes [[id number]] Collected: 09/03/19 172 Order Status: Completed Lab Status: Preliminary result Updated: 09/03/192241 Specimen: Tissue from Arm, Left Special Requests L ARM Special Requests Testing performed at [facility];[address] [place] [address] Gram Stain Result 3+ WBC'S SEEN Gram Stain Result 4+ GRAM POSITIVE COCCI Gram Stain Result [facility], [address] [place] [address] RESULT PENDING Comment: Testing performed at [facility], [address] [place] [address] Culture, Wound, Smear, w/Anaerobe [[id number]] Collected: 09/03/19 1627 Order Status: Completed Lab Status: Preliminary result Updated: 09/03/19 183 Specimen: Tissue from Arm, Left Special Requests LT ARM GRAFT SITE Gram Stain Result WBC'S SEEN Gram Stain Result GRAM POSITIVE COCCI Gram Stain Result STAIN PERFORMED ON CYTOSPIN Gram Stain Result Testing performed at [facility];[address] [place] [address];[place] [address] RESULT PENDING Comment: Testing performed at [facility], [address] [place] [address], [place] [address] Labs Component Value Date/Time WBC 13.78 (H) [...] and will adjust dose accordingly. RYAN BUSTOS RP, Pharmacist 09/04/2019 0:47 Gwyn Gan [facility] - 09/04/2019 12:45 AM PDTClinical Pharmacy Note: Renal Monitoring Height: 157.5 cm Weight: 87.4 kg Patient is on hemodialysis - Usual schedule: Mon-Wed-Fri Will order the following dosage adjustments: Metoclopramide 5 mg PO Q4H prn Pharmacy will continue to follow and adjust medications as needed. Thank you. Ryan Bustos PharmD 09/04/2019 0:44 Neal Panda RN - 09/03/2019 3:00 PM PDTInformed MD Ramos of patient potassium 5.5 and Mag 3.2. Electron ically signed by Neal Dietz RN at 09/03/2019 3:01 PM PDTdocumented in this encounter Plan of Treatment + +------+--------+ [...] | + +--------+ + + + | NASRA PLASCENCIA, | Routin | 09/03/2019 | | Results [...] | POC ISTAT, CG8, | Routin | 09/03/2019 | | [...] + documented in this encounter Results Phosphorus (09/08/2019 4:47 AM PDT) + + + + + + | Component | Value | Ref Range | Performed | Pathologist | | | | | At | Signature | + + + + + + | Phosphorus | 5.3 (H)Comment: Testing | 2.3 - 4.8 mg/dL | [facility] | | | | performed at [facility], [address] | | LABORATORY | | | | [address], | | | | | | [place] [address] | | | | + + + + + + + + | Specimen | + + | Blood | + + + + + + + | Performing | Address | City/State/Zipcode | Phone Number | | Organization | | | | + + + + + | [facility] | [address] | [place] [address] | [phone] | + + + + + Magnesium (09/08/2019 4:47 AM PDT) + + + + + + | Component | Value | Ref Range | Performed | Pathologist | | | | | At | Signature | + + + + + + | Magnesium | 2.9 (H)Comment: Testing | 1.7 - 2.4 mg/dL | [facility] | | | | performed at [facility], [address] | | LABORATORY | | | | [address], | | | | | | [place] [address] | | | | + + + + + + + + | Specimen | + + | Blood | + + + + + + + | Performing | Address | City/State/Zipcode | Phone Number | | Organization | | | | + + + + + | [facility] | [address] | [place] [address] | [phone] | + + + + + Basic [...] 4 (L)Comment: GFR <60: | >60 | [facility] | | | GFR | CHRONIC [...] | | | | | | MDRD IDVA traceable | | | | | | equation.Testing | | | | | | performed at [facility], [address] | | | | | | [facility], | | | | | | [place] [address] | | | | + + + + + + + + | Specimen | + + | Blood | + + + + + + + | Performing | Address | City/State/Zipcode | Phone Number | | Organization | | | | + + + + + | [facility] | [address] | [place] [address] | [phone] | + + + + + CBC [...] [facility] | | | | performed at [facility], [address] | | LABORATORY | | | | [address] [place], | | | | | | [place] [address] | | | | + + + + + + + + | Specimen | + + | Blood | + + + + + + + | Performing | Address | City/State/Zipcode | Phone Number | | Organization | | | | + + + + + | [facility] | [address] | [place] [address] | [phone] | + + + + + Phosphorus (09/07/2019 4:31 AM PDT) + + + + + + | Component | Value | Ref Range | Performed | Pathologist | | | | | At | Signature | + + + + + + | Phosphorus | 4.1Comment: Testing | 2.3 - 4.8 mg/dL | [facility] | | | | performed at [facility], [address] | | LABORATORY | | | | [address], | | | | | | [place] [address] | | | | + + + + + + + + | Specimen | + + | Blood | + + + + + + + | Performing | Address | City/State/Zipcode | Phone Number | | Organization | | | | + + + + + | [facility] | [address] | [place] [address] | [phone] | + + + + + Magnesium (09/07/2019 4:31 AM PDT) + + + + + + | Component | Value | Ref Range | Performed | Pathologist | | | | | At | Signature | + + + + + + | Magnesium | 2.5 (H)Comment: Testing | 1.7 - 2.4 mg/dL | [facility] | | | | performed at [facility], [address] | | LABORATORY | | | | [address], | | | | | | [place] [address] | | | | + + + + + + + + | Specimen | + + | Blood | + + + + + + + | Performing | Address | City/State/Zipcode | Phone Number | | Organization | | | | + + + + + | [facility] | [address] | [place] [address] | [phone] | + + + + + Basic [...] 7 (L)Comment: GFR <60: | >60 | [facility] | | | GFR | CHRONIC [...] | | | | | | MDRD IDVA traceable | | | | | | equation.Testing | | | | | | performed at [facility], [address] | | | | | | [facility], | | | | | | [place] [address] | | | | + + + + + + + + | Specimen | + + | Blood | + + + + + + + | Performing | Address | City/State/Zipcode | Phone Number | | Organization | | | | + + + + + | [facility] | [address] | [place] [address] | [phone] | + + + + + CBC [...] | | | | | [place] [address] | | | | + + + + + + + + | Specimen | + + | Blood | + + + + + + + | Performing | Address | City/State/Zipcode | Phone Number | | Organization | | | | + + + + + | [facility] | [address] | [place] [address] | [phone] | + + + + + Phosphorus (09/06/2019 5:14 AM PDT) + + + + + + | Component | Value | Ref Range | Performed | Pathologist | | | | | At | Signature | + + + + + + | Phosphorus | 6.3 (H)Comment: Testing | 2.3 - 4.8 mg/dL | [facility] | | | | performed at [facility], [address] | | LABORATORY | | | | [address], | | | | | | [place] [address] | | | | + + + + + + + + | Specimen | + + | Blood | + + + + + + + | Performing | Address | City/State/Zipcode | Phone Number | | Organization | | | | + + + + + | [facility] | [address] | [place] [address] | [phone] | + + + + + Magnesium [...] | | | | | [place] [address] | | | | + + + + + + + + | Specimen | + + | Blood | + + + + + + + | Performing | Address | City/State/Zipcode | Phone Number | | Organization | | | | + + + + + | [facility] | [address] | [place] [address] | [phone] | + + + + + Basic [...] 4 (L)Comment: GFR <60: | >60 | [facility] | | | GFR | CHRONIC [...] | | | | | performed at [facility], [address] | | | | | | [facility], | | | | | | [place] [address] | | | | + + + + + + + + | Specimen | + + | Blood | + + + + + + + | Performing | Address | City/State/[facility] Cent[facility]ode | Phone Number | | Organization | | | | + + + + + | [facility] | [address] | [place] [address] | [phone] | + + + + + CBC [...] [facility] | | | | performed at [facility], [address] | | LABORATORY | | | | [address], | | | | | | [place] [address] | | | | + + + + + + + + | Specimen | + + | Blood | + + + + + + + | Performing | Address | City/State/Zipcode | Phone Number | | Organization | | | | + + + + + | [facility] | [address] | [place] [address] | [phone] | + + + + + Phosphorus (09/05/2019 5:26 AM PDT) + + + + + + | Component | Value | Ref Range | Performed | Pathologist | | | | | At | Signature | + + + + + + | Phosphorus | 4.8Comment: Testing | 2.3 - 4.8 mg/dL | [facility] | | | | performed at [facility], [address] | | LABORATORY | | | | [address], | | | | | | [place] [address] | | | | + + + + + + + + | Specimen | + + | Blood | + + + + + + + | Performing | Address | City/State/Zipcode | Phone Number | | Organization | | | | + + + + + | [facility] | [address] | [place] [address] | [phone] | + + + + + Magnesium (09/05/2019 5:26 AM PDT) + + + + + + | Component | Value | Ref Range | Performed | Pathologist | | | | | At | Signature | + + + + + + | Magnesium | 3.0 (H)Comment: Testing | 1.7 - 2.4 mg/dL | [facility] | | | | performed at [facility], [address] | | LABORATORY | | | | [address], | | | | | | [place] [address] | | | | + + + + + + + + | Specimen | + + | Blood | + + + + + + + | Performing | Address | City/State/Zipcode | Phone Number | | Organization | | | | + + + + + | [facility] | [address] | [place] [address] | [phone] | + + + + + Basic [...] | 9.4 | 8.5 - 10.5 | [facility] | | | | | mg/dL | LABORATORY | | + + + + + + | Estimated | 5 (L)Comment: GFR <60: | >60 | [facility] | | | GFR | CHRONIC [...] | | | | | performed at [facility], [address] | | | | | | [facility], | | | | | | [place] [address] | | | | + + + + + + + + | Specimen | + + | Blood | + + + + + + + | Performing | Address | City/State/Zipcode | Phone Number | | Organization | | | | + + + + + | [facility] | [address] | [place] [address] | [phone] | + + + + + CBC [...] MPV | 8.8Comment: Testing | fl | [facility] | | | | performed at [facility], [address] | | LABORATORY | | | | [address], | | | | | | [place] [address] | | | | + + + + + + + + | Specimen | + + | Blood | + + + + + + + | Performing | Address | City/State/Zipcode | Phone Number | | Organization | | | | + + + + + | [facility] | [address] | [place] [address] | [phone] | + + + + + ECG [...] [facility] | | | | performed at [facility], [address] | | LABORATORY | | | | [address], | | | | | | [place] [address] | | | | + + + + + + + + | Specimen | + + | Blood | + + + + + + + | Performing | Address | City/State/Zipcode | Phone Number | | Organization | | | | + + + + + | [facility] | [address] | [place] [address] | [phone] | + + + + + Magnesium (09/04/2019 4:59 AM PDT) + + + + + + | Component | Value | Ref Range | Performed | Pathologist | | | | | At | Signature | + + + + + + | Magnesium | 2.5 (H)Comment: Testing | 1.7 - 2.4 mg/dL | [facility] | | | | performed at [facility], [address] | | LABORATORY | | | | [address], | | | | | | [place] [address] | | | | + + + + + + + + | Specimen | + + | Blood | + + + + + + + | Performing | Address | City/State/Zipcode | Phone Number | | Organization | | | | + + + + + | [facility] | [address] | [place] [address] | [phone] | + + + + + Basic [...] 8 (L)Comment: GFR <60: | >60 | [facility] | | | GFR | CHRONIC [...] | | | | | | MDRD IDVA traceable | | | | | | equation.Testing | | | | | | performed at [facility], [address] | | | | | | [facility], | | | | | | [place] [address] | | | | + + + + + + + + | Specimen | + + | Blood | + + + + + + + | Performing | Address | City/State/Zipcode | Phone Number | | Organization | | | | + + + + + | [facility] | [address] | [place] [address] | [phone] | + + + + + CBC [...] [facility] | | | | performed at [facility], [address] | | LABORATORY | | | | [address], | | | | | | [place] [address] | | | | + + + + + + + + | Specimen | + + | Blood | + + + + + + + | Performing | Address | City/State/Zipcode | Phone Number | | Organization | | | | + + + + + | [facility] | [address] | [place] [address] | [phone] | + + + + + Culture, Blood (09/03/2019 8:16 PM PDT) + + + + + + | Component | Value | Ref Range | Performed | Pathologist | | | | | At | Signature | + + + + + + | Special | DIALYSIS PORT | | [facility] | | | Requests | | | LABORATORY | | + + + + + + | Special | Testing performed at | | [facility] | | | Requests | [facility];[address] | | LABORATORY | | | | [address];[place] [address] | | | | + + + + + + | RESULT | NO GROWTH 6 DAYS | | [facility] | | | | | | LAB[facility]AT[facility] | | + + + + + + | RESULT | Testing performed at | | [facility] | | | | [facility], [address] | | LABORATORY | | | | [place] | | | | | | [address]Cauxiqq: Testing | | | | | | performed at [facility], [address] | | | | | [place] | | | | | | [address] | | | | + + + + + + + + | Specimen | + + | Blood | + + + + + + + | Performing | Address | City/State/Zipcode | Phone Number | | Organization | | | | + + + + + | [facility] | [address] | [place] [address] | [phone] | + + + + + POC STANISLAV [id number], Arterial (09/03/2019 6:17 PM PDT) + + [...] (L)Comment: Testing | 11.6 - 15.5 | [facility] | | | POC | performed at [facility];[address] | g/dL | LABORATORY | | | | [address];[place] | | | | | | [address] | | | | + + + + + + + + | Specimen | + + | | + + + + + + + | Performing | Address | City/State/Zipcode | Phone Number | | Organization | | | | + + + + + | [facility] | [address] | [place] [address] | [phone] | + + + + + Culture, [...] | | LABORATORY | | | | Blvd;[place] [address] | | | | + + + + + + | Gram Stain | 3+ | | [facility] | | | Result | WBC'S SEEN | | LABORATORY | | | | | | | | + + + + + + | Gram Stain | 4+ | | [facility] | | | Result | GRAM POSITIVE COCCI | | LABORATORY | | | | | | | | + + + + + + | Gram Stain | Testing performed at | | [facility] | | | Result | [facility], [address] | | LABORATORY | | | | [place] | | | | | | [address] | | | | + + + + + + | RESULT | 2+ENTEROCOCCUS | | [facility] | | | | FAECALISAminoglycosides | | [...] Comment: Testing | | | performed at [facility], | | | [address], | | | [place] [address] | +---+ + + + + + + | Performing | Address | City/State/Zipcode | Phone Number | | Organization | | | | + + + + + | [facility] | [address] | [place] [address] | [phone] | + + + + + POC ISPOLLO, CG8, Arterial (09/03/2019 4:30 PM PDT) + [...] (L)Comment: Testing | 11.6 - 15.5 | [facility] | | | POC | performed at [facility];[address] | g/dL | LABORATORY | | | | [address];[place], [place] | | | | | | [address] | | | | + + + + + + + + | Specimen | + + | | + + + + + + + | Performing | Address | City/State/Zipcode | Phone Number | | Organization | | | | + + + + + | [facility] | [address] | [place] [address] | [phone] | + + + + + Culture, [...] | | LABORATORY | | | | Blvd;[place] [address] | | | | + + + [...] | [facility] | | | Result | [facility];[address] [place] [address] | | LABORATORY | | | | Blvd;[place] [address] | | | | + + + [...] Comment: Testing | | | performed at [facility], | | | [address], | | | [place] [address] | +---+ + + + + + + | Performing | Address | City/State/Zipcode | Phone Number | | Organization | | | | + + + + + | [facility] | [address] | [place] [address] | [phone] | + + + + + , Serum, Qual (09/03/2019 3:11 PM PDT) + + + + + + | Component | Value | Ref Range | Performed | Pathologist | | | | | At | Signature | + + + + + + | Preg, Serum | NEGATIVEComment: Testing | NEG | [facility] | | | | performed at [facility];[address] | | LABORATORY | | | | [address];[place], [place] | | | | | | [address] | | | | + + + + + + + + | Specimen | + + | Blood | + + + + + + + | Performing | Address | City/State/Zipcode | Phone Number | | Organization | | | | + + + + + | [facility] | [address] | [place] [address] | [phone] | + + + + + ECG [...] (500), | | | | | | design editor Jimi King | | | | | [...] Testing | 1.7 - 2.4 mg/dL | [facility] | | | | performed at [facility];[address] | | LABORATORY | | | | [address];[place] | | | | | | [address] | | | | + + + + + + + + | Specimen | + + | Blood | + + + + + + + | Performing | Address | City/State/Zipcode | Phone Number | | Organization | | | | + + + + + | [facility] | [address] | [place] [address] | [phone] | + + + + + Comprehensive [...] 5 (L)Comment: GFR <60: | >60 | [facility] | | | GFR | CHRONIC [...] | | | | | | MDRD IDVA traceable | | | | | | equation.Testing | | | | | | performed at [facility];[address] | | | | | | [facility];[place], [place] | | | | | | [address] | | | | + + + + + + + + | Specimen | + + | Blood | + + + + + + + | Performing | Address | City/State/Zipcode | Phone Number | | Organization | | | | + + + + + | [facility] | [address] | [place] [address] | [phone] | + + + + + CBC [...] | | | | performed at [facility];[address] | | | | | | [address];[place] | | | | | | [address] | | | | + + + + + + + + | Specimen | + + | Blood | + + + + + + + | Performing | Address | City/State/Zipcode | Phone Number | | Organization | | | | + + + + + | [facility] | [address] | [place] [address] | [phone] | + + + + + documented [...] bacitracin 50,000 units/10 mL | Given | 10/25/20 | 640 mLs | | | | [...] mg | | | | | 19 :19 | | | | | | PM [...] | | | | 09/07/19 at 0847, [place]. When | | | | | | [...] | | | | Starting 09/03/19 at 1633, | | | | | [...]
--- OUTSIDE RECORDS SUMMARY | ~2020-04-05 | XMS | Encounter Summary ---
Demographics + + + | Address | [address] | | | [place] [address] | + + + | Home Phone | | + + + | Preferred Language | Unknown | + + + | Marital Status | | + + + | Orthodox Affiliation | Unknown | + + + | Race | Unknown | + + + | Ethnic Group | Unknown | + + + Author + + + | Author | [facility] | | | and [place] | + + + | Organization | [facility] | | | and [place] | + + + | Address | Unknown | + + + | Phone | Unavailable | + + + Support + + + + + | Name | Relationship | Address | Phone | + + + + + | Lyubov Smalls | ECON | [place], [place] | | | | | [address] | | + + + + + | Lydia Palm | ECON | [place], [place] | | | | | [address] | | + + + + + | melinda METZ" | ECON | [place], [place] | | | [place]ba | | [address] | | + + + + + | Jose C Oconnor | ECON | [place] | | | | | [place] | | | | | [address] | | + + + + + Care Team Providers + +------+ + | Care Bit Sharpener Name | Role | Phone | + +------+ + | No, Physician | PCP | Unavailable | + +------+ + Encounter Details +--------+---------+ + + + | Date | Type | Department | Care Team | Description | +--------+---------+ + + + | 09/14/ | Office | [facility] | Man Jeronimo, | Infection of | | 2019 | Visit | VASCULAR SURGERY | [facility] [address] | arteriovenous | | | | [address] [place] | DR DE JESUS, | dialysis fistula, | | | | [address] [place] [address] | [place] [address] | subsequent encounter | | | | [address] | [phone] | (Primary Dx); | | | | [phone] | | Infected prosthetic | | | [...] Man Jeronimo PA-C - 09/14/2019 2:00 PM [facility] [address] [place] [address] Office: [phone] DATE OF VISIT: 09/14/2019 PATIENT NAME: Ramona [...] history of HTN and ESRDwho presented to [facility] with fever and chills with [...] 08/26 patient was e mergently transferred to [facility] for severe bleeding from left axilla. [...] CV: No peripheral edema, rate regular SKIN: [place], warm, dry without rash/lesion MS: ROM not [...] new AV access on her other arm trista carroll but will wait until she is completely [...]
--- OUTSIDE RECORDS SUMMARY | ~2020-04-05 | XMS | Encounter Summary ---
Demographics + + + | Address | [address] | | | [place] [address] | + + + | Home Phone | | + + + | Preferred Language | Unknown | + + + | Marital Status | | + + + | Moravian Affiliation | Unknown | + + + | Race | Unknown | + + + | Ethnic Group | Unknown | + + + Author + + + | Author | [facility] | | | and [place] | + + + | Organization | [facility] | | | and [place] | + + + | Address | Unknown | + + + | Phone | Unavailable | + + + Support + + + + + | Name | Relationship | Address | Phone | + + + + + | Lyubov Smalls | ECON | [place], [place] | | | | | [address] | | + + + + + | Lydia Palm | ECON | [place], [place] | | | | | [address] | | + + + + + | melinda METZ" | ECON | [place], [place] | | | reba | | [address] | | + + + + + | Jose C Reeves | ECON | [place] | | | | | [place] | | | | | [address] | | + + + + + Care Team Providers + +------+ + | Care Appeals Rn Name | Role | Phone | + +------+ + PCP | Unavailable | + +------+ + Encounter Details +--------+ + + + + | Date | Type | Department | Care Team | Description | +--------+ + + + + | 10/25/ | Hospital | [facility] | Ami Chavez, | Renal failure; | | 2015 - | Encounter | [facility] [address] | [address] | Anemia, unspecified | | | | [address] | [place] | anemia type; Rectal | | 10/31/ | | [place], [place] | [id number] | bleed | | 2015 | | [address] | | | | | | [phone] | | | +--------+ + + + [...] documented as of this encounter Discharge Summaries Irvin Hyde MD - 10/31/2015 2:30 PM PST Discharge Summaries by ODALIS LedezmaR2 at 10/31/15 834 Author: ODALIS LedezmaR2 Service: Hospitalist Author Type: Resident Filed: 10/31/15 180 Date of Service: 10/31/151429 Status: Attested [employer] Tier Off: ODALIS LedezmaR2 (Resident-Y2) Cosigner: Kemal Maloney MD at 1844 Attestation signed by Kemal Maloney MD at 10/31/151844 Patient seen and examined. Renal biopsy showed global glomerulosclerosis. Patient is tolera ting PD well and uremic symptoms have resolved. Will receive PD training tomorrow in [place]. Discussed with Dr. Reyna. Agree with discharge note by Dr. Hyde. Merged With [facility] Service: Hospitalist Discharge Summary Date of Admission: 10/25/2015 Date of Discharge: 10/31/2015 Discharge Provider: Irvin Hyde MD-R1 Treatment Team: Consulting Physician: Chago Chi MD Admitting Provider: Ami Chavez MD Discharge Diagnoses: Principal Problem: Uremia Active Problems: UTI (urinary tract infection) Loss of weight Fatigue Adrenal mass (HCC) Severe protein-calorie malnutrition (HCC) Metabolic acidosis Hyperphosphatemia Itching Hypocalcemia Resolved Problems: * No resolved hospital problems. * Procedures: Procedure(s): LAPAROSCOPIC - PERITONEAL DIALYSIS CATH INSERTION BRIEF HISTORY OF PRESENTATION: Ramona Reeves is a 35 y.o. female with past medical history of GERD, known ad renal mass who presents with spreading rash since late August of this year. Patient was fou nd to have anemia and elevation in creatinine on labs done earlier this week at [facility]. HOSPITAL COURSE: Patient presented with malaise, nausea with decreased appetite, rash on arms, legs, tr unk and back. She was found to have severe acute kidney injury. Patient was seen by Dr. Barrie bernal who did an extensive renal workup and recommended a CT guided renal biopsy which she cristina erated well. Biopsy results pending final report at time of note. Patient had urine culture which grew Klebsiella pneumoniae treated with three days of rocephin. Patient's rash was s uspicious for scabies, scraping was negative and likely due to uremic symptoms. Patient und erwent peritoneal dialysis catheter placement performed by Dr. Ramos which she tolerated well with little post-operative pain. Dr. Reyna followed patient during dialysis. Patient had improvement of appetite and fatigue however, she remained nauseated with episodes of emesis. Past Medical History Diagnosis Date Diverticulosis GERD (gastroesophageal reflux disease) Obesity Metabolic acidosis 10/28/2015 Hyperphosphatemia 10/28/2015 Itching 10/28/2015 Hypocalcemia 10/28/2015 Uremia 10/28/2015 Past Surgical History Procedure Laterality Date Peritoneal catheter insertion N/A 10/28/2015 Procedure: LAPAROSCOPIC - PERITONEAL DIALYSIS CATH INSERTION; Surgeon: Mundo Ramos MD; L ocation: [facility]; Service: Vascular; Laterality: N/A; No Known Allergies No prescriptions prior to admission DISCHARGE EXAM Vital Signs: BP 160/89 mmHg | Pulse 75 | Temp(Src) 98.3 F (36.8 C) (Oral) | Resp 20 | Ht 1.575 m (5' 2.01") | Wt 92.1 kg (203 lb 0.7 oz) | BMI 37.13 kg/m2 | SpO2 100% | LMP 10/24/2015 | Breast feeding? No General Appearance: Patient is laying in bed, family at bedside. No apparent distress. Conv ersive and appropriate to place and person. HEENT: Normocephalic, atraumatic, pupils EOMI, PERRLA. Nose: no septal deviation or dischar ge. Ears: normal size, location, and contour. NECK: is supple, full ROM, nontender. LUNGS: clear to auscultation bilaterally with no wheezing, No rales or rhonchi audible. HEART: regular rate and normal rhythm , soft S1., ABDOMEN: peritoneal dialysis catheter non-erythematous. Bowel sound is normoactive, abdomen is soft, non-tender non-distended ,no mass. EXTREMITIES: trace-1+ lower extremity edema, good distal pulses. NEURO: Cranial Nerves 2-12 intact, Gait not tested., Muscle strength good bilaterally, Sens ation grossly intact. PSYCH: Alert, awake and Oriented x3. Mood is normal. SKIN: excoriations in different stages of healing all over legs, arms, trunk and back. DATA Recent Labs Lab 10/31/15 0401 10/30/15 0410 WBC 8.97 10.51 RBC 2.89* 2.84* HGB 7.9* 7.7* HCT 24.2* 24.0* MCV 83.9 84.3 MCH 27.2 26.9* MCHC 32.5 32.0 RDW 48.1 45.9 PLT 226 210 MPV 9.3 9.4 NEUTOPHILPCT 67.15 72.16 MONOPCT 5.32 4.74 Recent Labs Lab 10/31/15 0401 10/26/15 1831 10/25/15 1415 NA 136 < > 142 < > 137 K 3.8 < > 4.5 < > 4.8 CL 98* < > 111* < > 106 CO2 23 < > 14* < > 16* ANIONGAP 19 < > 21* < > 20 GLUF 79 < > 96 < > 150* BUN 97* < > 104* < > 99* CREATININE 14.12* < > 16* < > 17* BCR -- -- 7 < > 6 CA 7.2* < > 6.0* < > 6.9* ALB 2.9* < > -- -- 3.3* GLOB -- -- -- -- 4.6 PROT -- -- -- -- 7.9 BILITOT -- -- -- -- 0.3 ALT -- -- -- -- 15 AST -- -- -- -- 11 EGFR 3* < > 3* < > 3* PHOS 8.6* < > -- -- -- MG 2.4 < > -- -- -- < > = values in this interval not displayed. Recent Labs Lab 10/26/15 0526 HGBA1C 5.1 LABGLYC 100 Recent Labs Lab 10/26/15 0939 APTT 28 INR 1.0 No results for input(s): TSH, T3FREE, FREET4 in the last 168 hours. Recent Labs Lab 10/26/15 0526 CKTOTAL 59 HDL CHOL Date Value Ref Range Status 10/26/2015 36* >40 mg/dL Final Comment: Testing performed at [address] [address] TRIGLYCERIDES Date Value Ref Range Status 10/26/2015 137 <150 mg/dL Final Comment: Testing performed at [facility], [address] [place] [address] LDL CALC Date Value Ref Range Status 10/26/2015 62 <100 mg/dL Final Comment: Testing performed at [address] [address] CHOLESTEROL Date Value Ref Range Status 10/26/2015 125 <200 mg/dL Final Comment: Testing performed at [address] [address] X-ray Chest 2 View Frontal & Lateral 10/29/2015 RAMONA TREVOR LEANDRO XR CHEST 2 VIEW FRONTAL AND LATERAL HISTORY: 35 years. Female. Shortness breath TECHNIQUE: Frontal and lateral views of the chest were obtained. COMPARISON: None. FINDINGS: The heart is borderline enlarged. No pulmonary vascular conges tion. No pneumothorax. No focal airspace disease or pleural effusion. Free intraperitoneal a ir beneath the diaphragms. 10/29/2015 1. Free intraperitoneal air beneath the diaphragms which may be due to recent peritoneal dialysis catheter placement. Bowel perforation cannot be completely excluded. Co rrelate with the procedure and clinical findings. Ultrasound Kidneys And Bladder 10/25/2015 RAMONA REEVES US KIDNEYS AND BLADDER 10/25/2015 6:17 PM History: 35 years. Female. Acute renal failure. Extensive body rash. Technique: A high-resolution g rayscale duplex transducer with color and pulsed Doppler capability was utilized for imaging , with zepeda scale and color image recording in multiple anatomical planes. Comparison exami nations: None. Findings: The right kidney measures 11.3 x 4.3 x 4.0 cm.. No hydronephro sis visualized. Cortical thickness is normal throughout the kidney. No obvious right renal mass or stone visualized. The left kidney measures 9.9 x 5.3 x 4.4 cm.. No hydronephrosis visualized. The contour and cortical thickness of the left kidney are normal. No obvious left renal mass or stone visualized. The estimated filled urinary bladder volume is 106 c c. The bladder wall is smooth, without mass. Bilateral ureteral jets are visualized, indic ating patency of the ureters. Estimated post void bladder volume is 0 cc. 10/25/2015 1. Normal kidneys and bladder. Ct Needle Biopsy Kidney 10/26/[address] NEEDLE BIOPSY KIDNEY 10/26/2015 10:57 AM HISTORY: [age] years. Female. Hematuria and severe acute kidney injury. COMPARISON: Renal ultrasound 1 12/26/2014.. DESCRIPTION OF PROCEDURE: Prior to beginning the procedure, I obtained written informed consent. A timeout was performed. Patient positioning: Prone. Axial dance teacher images w ere obtained through region of interest with a skin marker grid. A skin site was selected a nd marked. The skin was then prepped and draped in the usual sterile fashion and anesthetiz ed with 1% lidocaine buffered with sodium bicarbonate. Subsequently, an 17-gauge Bard core biopsy guide needle was advanced using CT guidance until satisfactory needle tip position wa s achieved. 3 core biopsy sample(s) obtained, placed in saline and sent to pathology. Befo re the guide needle was removed, a Gelfoam slurry was injected along the needle tract. A li mited set of axial images were then obtained through the area biopsied. The patient tolerat ed the procedure well. COMPLICATIONS: There were no immediate complications. MEDICATIONS: I.V. conscious sedation was supervised by Dr. Chase using Versed and Fentanyl for 30 minute s. Using automated blood pressure, EKG and pulse oximetry, the patient was independently mon itored by a radiology nurse certified to give conscious sedation. There were no sedation com plications. 10/26/[address] core needle biopsy of the right kidney. Electronically sign ed by Rohan Chase MD on 10/26/2015 1:03 PM Or General Scope Imaging 10/28/2015 This is a non-reportable procedure without a radiologist report and is used f or image storage only. Please review the OR procedure report for details on the procedure. PLAN Discharge to home in stable condition. Code Status: Full Code No discharge procedures on file. Follow up: [facility] [address] [facility] [address] Mundo Ramos MD [address] [place] [address] Follow up in 2 week(s) [facility] [address] [facility] [id number] Follow up on 11/01/2015 Please be there for your dialysis training, starting tomorrow at 7am. Medication List START taking these medications diphenhydrAMINE 25 mg capsule QTY: 30 capsule Refills: 0 Commonly known as: BENADRYL Take 1 capsule by mouth every 6 (six) hours as needed for Itching. CONTINUE taking these medications ergocalciferol 38581 UNITS capsule Refills: 0 Commonly known as: DRISDOL loratadine 10 MG tablet Refills: 0 Commonly known as: CLARITIN omeprazole 20 MG capsule Refills: 0 Commonly known as: PRILOSEC STOP taking these medications predniSONE 20 MG tablet Commonly known as: DELTASONE Where to Get Your Medications These are the prescriptions that you need to pickle solution maker. You may get the following medications from any pharmacy - diphenhydrAMINE 25 mg capsule Discharge took 30 minutes, to include final examination, discussion of admission, and prepa ration of prescriptions, instructions for on-going care, follow-up and documentation of disc harge summary. Irvin Hyde MD-R1 10/31/2015 documente d in this encounter Progress Notes Conversion Transaction, Provider Unknown - 10/31/2015 4:22 PM PSTFormatting of this note m ight be different from the original. Progress Notes by Conchita Valencia RD at 10/31/15 1622 Author: Conchita Valencia RD Service: (none) Author Type: Registered Dietitian Filed: 10/31/15 1627 Date of Service: 10/31/15 162 Status: Signed Bulk Sausage Casing Tier Off: Conchita Valencia RD (Registered Dietitian) RD received call to provide renal diet education to pt and family prior to discharge this a fternoon. Discussed diet with pt, , and family, including Phos, K+, Sodium restrictions and hi gh protein diet. Provided handouts from the [facility]one. Answered all questions. Encouraged followup with dialysis dietitian. Conchita Valencia RD onver patric Transaction, Provider Unknown - 10/31/2015 3:23 PM PST Nurse Progress Note by Cielo Beebe RN at 10/31/15 1523 Author: Cielo Beebe RN Service: (none) Author Type: Registered Nurse Filed: 10/31/15 1524 Date of Service: 10/31/15 1523 Status: Signed [employer] S[employer] Casing Tier Off: Cielo Beebe RN (Registered Nurse) Pt has been discharged home. She knows to follow up as directed tomorrow at [facility] for nito virk. She is ambulating, tolerating food, voiding and pain is controlled. She has no further questions at this time. Amrik Moreno MD - 10/31/2015 12:52 PM PSTFormatting of this note might be different from the or iginal. Progress Notes by Amrik Reyna MD at 10/31/15 1252 Author: Amrik Reyna MD Service: Nephrology Author Type: Physician Filed: 10/31/15 1313 Date of Service: 10/31/15 1252 Status: Signed Bul[employer] Sausage Casing Tier Off: Amrik Reyna MD (Physician) PCP : [facility] LOS: 6 days Ramona Reeves is a 35 y.o. 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 She started with urgent PD protocol. Assumed nephrology care from Dr. Chi 10/27/15 Ramona Reeves feels 'Ok' today. Currently seen on PD. Doing well without any significant nausea or pain. Tolerating urgent start PD protocol without significant issues. Seen with . No fever, chills sweats, nausea, vomiting or diarrhea, no shortness of breath, chest pain. Still nauseous with poor appetite but itching improved. ROS: As in History of Present Illness. 7 area ROS was done and was otherwise negative. Examination: Constitutional: Alert, awake, oriented lying flat in bed in no distress. No asterixis. HEENT: Thick neck without JVD, non- icteric sclera. Cardiovascular: S1 soft. No S3. LUNGS:: Effort fair. Clear to auscultation. Abdominal: Soft, non tender on palpation, No distension and no mass. No rebound tenderness and no guarding. PD catheter in situ. Musculoskeletal: No gross deformity, EXT: No LE edema. Distal pulses palpable. Neurological: Speech fluent. Sensorium normal. Gait not tested. Moves all 4 extremities. Skin: Skin is warm and dry. Psychiatric: Pleasant demeanor. The following portions of the patient's history were reviewed and updated as appropriate: l aboratory data, radiologic studies, allergies, current medications, and problem list. Past m edical, surgical, social, and family history was also reviewed as appropriate. Past history summarized as above. Vital Signs: BP 157/89 mmHg | Pulse 93 | Temp(Src) 97.8 F (36.6 C) (Oral) | Resp 18 | Ht 1.575 m (5' 2.01") | Wt 92.1 kg (203 lb 0.7 oz) | BMI 37.13 kg/m2 | SpO2 98% | LMP 10/24/2015 | Breastf eeding? 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 Reeves is a 35 y.o. woman with nonoliguric CKD stage 5 with prelim rep ort of kidney biopsy (as per my discussion with Dr. Chi) showing global glomerulosclerosis on 5 of 6 glomeruli seen. There was not enough sampling for IF or EM. Serological workup hepatitis panel, HIV testing, CRYSTAL, syphilis negative. Noted normal C4 and minimally reduc ed C3 level. Free light chain ratio normal. Imaging with kidney ultrasound from 10/25/15, se en by myself, shows normal sized kidneys. Diagnostic kidney biopsy has been done 10/26/15. I t is quite possible she has chronic kidney disease which is now manifested with uremic sympt oms. She initiated [employer] with PD 10/28/15. Clinically close to euvolemic state. No pleural effusion seen on chest x-ray as above. Noted persistent metabolic acidosis. Calcium low adjusting for low albumin. Likely secondary to chronic kidney disease. Angel ating calcium carbonate, calcium acetate and calcitriol. Severe hyperphosphatemia likely secondary to chronic disease with symptom of itching. Sl owly improving.. Plan to continue urgent start CCPD as she has tolerated manual dwell without issues. If she does have drain pain then would try manual drains. Continue Calcium acetate and Ca carbonate. Continue calcitriol. Discussed with the dialysis coordinator Ayanna Cheek, who is covering for dialysis Arthur Goldberg. Plan for outpatient dialysis once spot is obtained in [place]. Discussed with the home dialysis coordinator, Flakita. sHe may be discharged today and really to go to [place] tomorrow to begin training. I have had a discussion regarding need for dialysis I have discussed PD and HD (pros and cons). I did explain the potential of if untreated. Diet: 1 gm/kg protein, 1 gm PO4, 2 gm Na, and 2 gm K restricted diet. Dose all meds for an eGFR of less than 15 ml/min/1.73 m2. No use of NSAIDs (including MENDES 2 inhibitors). No use of Magnesium or aluminum containing antacids. No use of Magnesium or phosphorus containing laxatives No Fluid restriction . Strict I/O Daily weights. Keep in + balance. AMRIK REYNA MD 10/31/[address] Maloney the above. Seen earlier in the day and charting completed later after rounds. Dictation software, [employer], used which may contain error for similar sounding words even af ter review. Personal communication requested for any clarification. Prognosis guarded in view of multiple comorbid illnesses and severe kidney failure includin g but not limited to potential need for dialysis and . calcitRIOL 0.25 mcg Oral Once per day fri calcium acetate 1,334 mg Oral TID WC calcium carbonate 500 mg Oral TID AC epoetin chito 10,000 Units Subcutaneous Once iron gluconate 125 mg Intravenous Q24H heparin (porcine) 5000 unit/0.5mL 5,000 Units Subcutaneous Q8H hydrOXYzine 10 mg Oral BID loratadine 10 mg Oral Daily pantoprazole 40 mg Oral BID AC sodium bicarbonate 648 mg Oral TID sodium chloride (PF) [address] Chi will assume nephrology service as of 8 am tomorrow if she stays. lark, Irvin Iyer MD - 10/31/2015 11:49 AM PST Progress Notes by Irvin Hyde MD-R2 at 10/31/15 1901 Author: Irvin Hyde MD-R2 Service: Hospitalist Author Type: Resident Filed: 10/31/15 1206 Date of Service: 10/31/15 1149 Status: Attested Bul[employer] Sausage Casing Tier Off: Irvin Hyde MD-R2 (Resident-Y2) Cosigner: Kemal Maloney MD at 942 Attestation signed by Kemal Maloney MD at 10/31/15 183 Patient seen and examined. Discussed with Dr. Reyna. Will discharge home today. Agree with this note of Dr. Hyde. Merged With [facility] Service: Hospitalist Progress Note Hospital Day: LOS: 6 days Post-Op Day: * No surgery found * SUBJECTIVE Patient Summary: Patient is a 35 year old female with past medical history of GERD, k nown adrenal mass who presents with spreading rash since late August of this year. Patiritchie sanon was found to have anemia and elevation in creatinine on labs done earlier this week at [facility]. Events Overnight: Patient states her nausea persists, had episodes of non-bloody emes is this morning. Patient is still having itchiness all over. ROS: 12 point ROS reviewed and negative other than above. Scheduled Medications calcitRIOL 0.25 mcg Oral Once per day on Fri calcium acetate 1,334 mg Oral TID WC calcium carbonate 500 mg Oral TID AC epoetin chito 10,000 Units Subcutaneous Once iron gluconate 125 mg Intravenous Q24H heparin (porcine) 5000 unit/0.5mL 5,000 Units Subcutaneous Q8H hydrOXYzine 10 mg Oral BID loratadine 10 mg Oral Daily pantoprazole 40 mg Oral BID AC sodium bicarbonate 648 mg Oral TID sodium chloride (PF) 10 mL Intravenous Q8H Continuous Infusions PRN Medications acetaminophen OR acetaminophen, diphenhydrAMINE, [MAR Hold] docusate sodium, fentaNYL * *OR fentaNYL, [MAR Hold] HYDROcodone-acetaminophen OR [MAR Hold] HYDROcodone-acetamino phen, [MAR Hold] lidocaine, [MAR Hold] mineral oil, ondansetron OR ondansetron, polyethy tamanna glycol, [MAR Hold] sodium bicarbonate buffer, zolpidem OBJECTIVE Vital Signs: BP 157/89 mmHg | Pulse 93 | Temp(Src) 97.8 F (36.6 C) (Oral) | Resp 18 | Ht 1.575 m (5' 2.01") | Wt 92.1 kg (203 lb 0.7 oz) | BMI 37.13 kg/m2 | SpO2 98% | LMP 10/24/2015 | Breastf eeding? No Physical Exam: General Appearance: Patient laying in bed, family in room Conversive and appropriate to pl [place] and person. HEENT: Normocephalic, atraumatic, pupils EOMI, PERRLA. Nose: no septal deviation or dischar ge. Ears: normal size, location, and contour. Throat dry and without exudates. NECK: is thick, supple, full ROM, nontender. LUNGS: good air movement,normal effort. clear to auscultation bilaterally with no wheezing , No rales or rhonchi audible. HEART: Normal rate and regular rhythm, soft S1. ABDOMEN: peritoneal catheter in place without erythema, Bowel sound is normoactive, abdomen is soft, non-tender non-distended ,no mass palpable. EXTREMITIES: good distal pulses, No lower extermity edema, No clubbing or cyanosis bilatera lly. NEURO: Cranial Nerves 2-12 appears intact, Gait not tested, Muscle strength good bilaterall y, Sensation grossly intact. PSYCH: Alert, awake and Oriented x3. SKIN: warm and dry, multiple excoriations with different stages of healing on legs, arms, t runk. DATA Recent Labs Lab 10/31/15 0401 10/30/15 0410 10/29/15 0452 WBC 8.97 10.51 7.89 RBC 2.89* 2.84* 2.60* HCT 24.2* 24.0* 21.6* MCV 83.9 84.3 82.9 MCH 27.2 26.9* 27.2 MCHC 32.5 32.0 32.8 RDW 48.1 45.9 46.8 PLT 226 210 179 MPV 9.3 9.4 9.8 DIFFTYPE AUTOMATED AUTOMATED MANUAL Recent Labs Lab 10/31/15 0401 10/30/15 0410 10/29/15 0452 10/26/15 1831 10/26/15 0526 10/25/15 1415 K 3.8 3.7 4.1 < > 4.5 4.7 4.8 CL 98* 99 99 < > 111* 109 106 CO2 23 24 23 < > 14* 13* 16* ANIONGAP 19 20 20 < > 21* 22* 20 GLUF 79 84 102* < > 96 90 150* BUN 97* 104* 106* < > 104* 103* 99* CREATININE 14.12* 14.91* 15.51* < > 16* 15.48* 17* BCR -- -- -- -- 7 7 6 CA 7.2* 6.5* 6.9* | 6.1* < > 6.0* 6.9* 6.9* PROT -- -- -- -- -- -- 7.9 ALB 2.9* 2.9* 3.0* < > -- -- 3.3* GLOB -- -- -- -- -- -- 4.6 BILITOT -- -- -- -- -- -- 0.3 ALP -- -- -- -- -- -- 76 AST -- -- -- -- -- -- 11 ALT -- -- -- -- -- -- 15 EGFR 3* 3* 3* < > 3* 3* 3* < > = values in this interval not displayed. BMP: Recent Labs Lab 10/31/15 04010/30/15 0410 10/29/15 0452 10/26/15 1831 10/26/15 0526 10/25/15 1415 NA 136 139 138 < > 142 139 137 K 3.8 3.7 4.1 < > 4.5 4.7 4.8 CL 98* 99 99 < > 111* 109 106 CO2 23 24 23 < > 14* 13* 16* ANIONGAP 19 20 20 < > 21* 22* 20 GLUF 79 84 102* < > 96 90 150* BUN 97* 104* 106* < > 104* 103* 99* CREATININE 14.12* 14.91* 15.51* < > 16* 15.48* 17* BCR -- -- -- -- 7 7 6 CA 7.2* 6.5* 6.9* | 6.1* < > 6.0* 6.9* 6.9* EGFR 3* 3* 3* < > 3* 3* 3* < > = values in this interval not displayed. Recent Labs Lab 10/31/1540010/30/150 10/29/15 0452 MG 2.4 2.3 2.4 Recent Labs Lab 10/26/15 0939 10/26/15 0526 10/25/15 1415 APTT 28 29 28 INR 1.0 1.1 1.0 Recent Labs Lab 10/26/15 0526 CKTOTAL 59 Ultrasound Kidneys And Bladder 10/25/2015 RAMONA REEVES US KIDNEYS AND BLADDER 10/25/2015 6:17 PM History: 35 years. Female. Acute renal failure. Extensive body rash. Technique: A high-resolution g rayscale duplex transducer with color and pulsed Doppler capability was utilized for imaging , with zepeda scale and color image recording in multiple anatomical planes. Comparison exami nations: None. Findings: The right kidney measures 11.3 x 4.3 x 4.0 cm.. No hydronephro sis visualized. Cortical thickness is normal throughout the kidney. No obvious right renal mass or stone visualized. The left kidney measures 9.9 x 5.3 x 4.4 cm.. No hydronephrosis visualized. The contour and cortical thickness of the left kidney are normal. No obvious left renal mass or stone visualized. The estimated filled urinary bladder volume is 106 c c. The bladder wall is smooth, without mass. Bilateral ureteral jets are visualized, indic ating patency of the ureters. Estimated post void bladder volume is 0 cc. 10/25/2015 1. Normal kidneys and bladder. LEM LIST Principal Problem: Acute renal failure (ARF) (HCC) Active Problems: UTI (urinary tract infection) Anemia Loss of weight Fatigue Adrenal mass (HCC) ASSESSMENT & PLAN Patient is a 35 year old female with past medical history of GERD, known adrenal mass who p resents with spreading rash since late August of this year. Patient was found to have ane zhou and elevation in creatinine on labs done earlier this week at her PCP. Principal Problem: Acute renal failure (ARF) (HCC) - Awaiting final pathology report of CT guided renal biopsy. - Primary team discussed case with Dr. Reyna today. - Patient underwent peritoneal dialysis catheter placement by Dr. Rmaos, reports no pain or leakage. - Creatinine 14.12, trending down. - Daily CMP. - Dialysis follow-up being set up with case management, for [facility] in [place]. Active Problems: UTI (urinary tract infection) - Patient was treated for three days with Rocephin for Klebsiella pneumoniae UTI Anemia - Hemoglobinon 7.9 today - Status post two units of PRBCs on 10/26 - Heart rate and blood pressure have been stable. - Monitor routine vital signs. Rash - Scabies scraping performed,negative. Discontinued isolation. - Benadryl capsule and cream for pruritus. - Could be secondary to uremia. DVT prophylaxis - Heparin 5,000 units every eight hours. Severe Protein-Calorie Malnutrition - Patient has been seen by dietary. Hospital records reviewed. Labs and radiologic studies and reports reviewed. Discussed find ings with participating physicians. Old records reviewed on EMR. Condition guarded and high risk for cardiopulmonary decompensation due to underlying condit ions Disposition: inpatient Code Status: Full Code Irvin Hyde MD-R1 10/31/2015 onversawa n Transaction, Provider Unknown - 10/31/2015 11:30 AM PSTFormatting of this note might be di fferent from the original. Case Management by Francoise Aparicio RN at 10/31/15 1130 Author: Francoise Aparicio RN Service: (none) Author Type: High School Music Director Filed: 10/31/15 1134 Date of Service: 10/31/15 1130 Status: Signed Bul[employer] Saus[employer] Casing Tier Off: Francoise Aparicio RN (High School Music Director) Phone call from [facility] (medicaid case management) . She is willing to work on getting [facility] nurses to visit pt upon DC as well as have contact with pt to see that she has all the services she needs upon DC. onver patric Transaction, Provider Unknown - 10/30/2015 3:44 PM PST Progress Notes by Ayanna Cheek at 10/30/15 6486 Author: Ayanna Cheek Service: (none) Author Type: (none) Filed: 10/30/15 1682 Date of Service: 10/30/15 8249 Status: Signed Bulk Sausage Casing Tier Off: Ayanna Cheek Spoke to patient who chose [facility] Referral and medical records sent to [facility] Admissions on 10/30/15 at 3:30 p.m. Amrik Moreno MD - 10/30/2015 2:37 PM PSTFormatting of this note might be different from the or iginal. Progress Notes by Amrik Reyna MD at 10/30/15 5103 Author: Amrik Reyna MD Service: Nephrology Author Type: Physician Filed: 10/30/15 6054 Date of Service: 10/30/15 0014 Status: Signed Bulk Sausage Casing Tier Off: Amrik Reyna MD (Physician) PCP : [facility] LOS: 5 days Ramona Reeves is a 35 y.o. 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 She started with urgent PD protocol. Assumed nephrology care from Dr. Chi 10/27/15 Ramona Reeves feels 'Ok' today. Currently seen on PD. Seen with mother "Lyubov" and . Yesterday had drain pain and apparently had a bit of an issue with the [facility]. No fever, chills sweats, nausea, vomiting or diarrhea, no shortness of breath, chest pain. ROS: As in History of Present Illness. 7 area ROS was done and was otherwise negative. Examination: Constitutional: Alert, awake, oriented lying flat in bed in no distress. No asterixis. HEENT: Thick neck without JVD, non- icteric sclera. Cardiovascular: S1 soft. No S3. LUNGS:: Effort fair. Clear to auscultation. Abdominal: Soft, non tender on palpation, No distension and no mass. No rebound tenderness and no guarding. PD catheter in situ. Musculoskeletal: No gross deformity, EXT: No LE edema. Distal pulses palpable. Neurological: Speech fluent. Sensorium normal. Gait not tested. Moves all 4 extremities. Skin: Skin is warm and dry. Psychiatric: Pleasant demeanor. The following portions of the patient's history were reviewed and updated as appropriate: l aboratory data, radiologic studies, allergies, current medications, and problem list. Past m edical, surgical, social, and family history was also reviewed as appropriate. Past history summarized as above. Vital Signs: BP 149/79 mmHg | Pulse 86 | Temp(Src) 98.1 F (36.7 C) (Oral) | Resp 18 | Ht 1.575 m (5' 2.01") | Wt 92 kg (202 lb 13.2 oz) | BMI 37.09 kg/m2 | SpO2 96% | LMP 10/24/2015 | Breastfe eding? 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 Reeves is a 35 y.o. woman with nonoliguric CKD stage 5 with prelim rep ort of kidney biopsy (as per my discussion with Dr. Chi) showing global glomerulosclerosis on 5 of 6 glomeruli seen. There was not enough sampling for IF or EM. Serological workup hepatitis panel, HIV testing, CRYSTAL, syphilis negative. Noted normal C4 and minimally reduc ed C3 level. Free light chain ratio normal. Imaging with kidney ultrasound from 10/25/15, se en by myself, shows normal sized kidneys. Diagnostic kidney biopsy has been done 10/26/15. I t is quite possible she has chronic kidney disease which is now manifested with uremic sympt oms. She initiated [employer] with PD 10/28/15. Clinically close to euvolemic state. No pleural effusion seen on chest x-ray as above. Noted persistent metabolic acidosis. Calcium low adjusting for low albumin. Likely secondary to chronic kidney disease. Severe hyperphosphatemia likely secondary to chronic disease with symptom of itching. At this time she does have persistent acidosis and soft uremic symptoms with fatigue and nausea and with biopsy consistent with chronicity would continue dialysis likely with perit khan dialysis as she is a good candidate for same Plan to continue urgent start CCPD as she has tolerated manual dwell without issues. If she does have drain pain then would try manual drains. Continue Calcium acetate and Ca carbonate. Continue calcitriol. Discussed with the dialysis Karl[place], Ayanna Cheek, who is covering for Arthur Dinero. Plan for outpatient dialysis once spot is obtained in [place]. I have had a discussion regarding need for dialysis I discussed PD and HD (pros and cons). I explained uremic symptoms to her in detail (including but not limited to persistent nause a, anorexia, weight loss, leg swelling, shortness of breath, chest pain, metallic taste in m outh). I did explain the potential of if untreated. Diet: 1 gm/kg protein, 1 gm PO4, 2 gm Na, and 2 gm K restricted diet. Dose all meds for an eGFR of less than 15 ml/min/1.73 m2. No use of NSAIDs (including MENDES 2 inhibitors). No use of Magnesium or aluminum containing antacids. No use of Magnesium or phosphorus containing laxatives No Fluid restriction . Strict I/O Daily weights. Keep in + balance. Daily BMP (including Ca, PO4, Mg) AMRIK REYNA MD 10/30/[address] Manzano the above. Seen earlier in the day and charting completed later after rounds. Dictation software, [employer], used which may contain error for similar sounding words even af ter review. Personal communication requested for any clarification. Prognosis guarded in view of multiple comorbid illnesses and severe kidney failure includin g but not limited to potential need for dialysis and . calcitRIOL 0.25 mcg Oral Once per day on Fri calcium acetate 1,334 mg Oral TID WC calcium carbonate 500 mg Oral TID AC epoetin chito 10,000 Units Subcutaneous Once iron gluconate 125 mg Intravenous Q24H heparin (porcine) 5000 unit/0.5mL 5,000 Units Subcutaneous Q8H hydrOXYzine 10 mg Oral BID loratadine 10 mg Oral Daily pantoprazole 40 mg Oral BID AC sodium bicarbonate 648 mg Oral TID sodium chloride (PF) 10 mL Intravenous Q8H lark, Irvin Iyer MD - 10/30/2015 1:02 PM PST Progress Notes by Irvin Hyde MD-R2 at 10/30/15 1302 Author: ODALIS LedezmaR2 Service: Hospitalist Author Type: Resident Filed: 10/30/15 3643 Date of Service: 10/30/15 1302 Status: Attested [employer] S[employer] Casing Tier Off: Irvin Hyde MD-R2 (Resident-Y2) Cosigner: Cesar Gatica MD at 10/30/151830 Attestation signed by Cesar Gatica MD at 10/30/151830 I have seen and examined the patient and agree with the residents note Merged With [facility] Service: Hospitalist Progress Note Hospital Day: LOS: 5 days Post-Op Day: * No surgery found * SUBJECTIVE Patient Summary: Patient is a 35 year old female with past medical history of GERD, k nown adrenal mass who presents with spreading rash since late August of this year. Kimberly sanon was found to have anemia and elevation in creatinine on labs done earlier this week at [facility]. Events Overnight: Patient states her nausea is improving and she is able to tolerate eating breakfast. Patient is still having itchiness all over her body. ROS: 12 point ROS reviewed and negative other than above. Scheduled Medications calcitRIOL 0.25 mcg Oral Once per day on Fri calcium acetate 1,334 mg Oral TID WC calcium carbonate 500 mg Oral TID AC epoetin chito 10,000 Units Subcutaneous Once iron gluconate 125 mg Intravenous Q24H heparin (porcine) 5000 unit/0.5mL 5,000 Units Subcutaneous Q8H hydrOXYzine 10 mg Oral BID loratadine 10 mg Oral Daily pantoprazole 40 mg Oral BID AC sodium bicarbonate 648 mg Oral TID sodium chloride (PF) 10 mL Intravenous Q8H Continuous Infusions PRN Medications acetaminophen OR acetaminophen, diphenhydrAMINE, [MAR Hold] docusate sodium, fentaNYL * *OR fentaNYL, [MAR Hold] HYDROcodone-acetaminophen OR [MAR Hold] HYDROcodone-acetamino phen, [MAR Hold] lidocaine, [MAR Hold] mineral oil, ondansetron OR ondansetron, polyethy tamanna glycol, [MAR Hold] sodium bicarbonate buffer, zolpidem OBJECTIVE Vital Signs: BP 151/90 mmHg | Pulse 86 | Temp(Src) 98.1 F (36.7 C) (Oral) | Resp 18 | Ht 1.575 m (5' 2.01") | Wt 91.2 kg (201 lb 1 oz) | BMI 36.76 kg/m2 | SpO2 94% | LMP 10/24/2015 | Breastfee ding? No Physical Exam: General Appearance: Patient laying in bed, Mother at bedside. Conversive and appropriate t o place and person. HEENT: Normocephalic, atraumatic, pupils EOMI, PERRLA. Nose: no septal deviation or dischar ge. Ears: normal size, location, and contour. Throat dry and without exudates. NECK: is thick, supple, full ROM, nontender. LUNGS: good air movement,normal effort. clear to auscultation bilaterally with no wheezing , No rales or rhonchi audible. HEART: Soft heart tones, normal rate. ABDOMEN: peritoneal catheter in place without erythema, Bowel sound is normoactive, abdomen is soft, non-tender non-distended ,no mass palpable. EXTREMITIES: good distal pulses, No lower extermity edema, No clubbing or cyanosis bilatera lly. NEURO: Cranial Nerves 2-12 appears intact, Gait not tested, Muscle strength good bilaterall y, Sensation grossly intact. PSYCH: Alert, awake and Oriented x3. SKIN: warm and dry, multiple excoriations with different stages of healing on legs, arms, t runk. DATA Recent Labs Lab 10/30/15 0410 10/29/1545110/28/159 WBC 10.51 7.89 8.98 RBC 2.84* 2.60* 2.72* HCT 24.0* 21.6* 22.9* MCV 84.3 82.9 84.4 MCH 26.9* 27.2 27.1 MCHC 32.0 32.8 32.0 RDW 45.9 46.8 46.4 PLT 210 179 185 MPV 9.4 9.8 9.4 DIFFTYPE AUTOMATED MANUAL AUTOMATED Recent Labs Lab 10/30/15 0410 10/29/15 0452 10/28/15 0339 10/26/15 1831 10/26/15 0526 10/25/15 1415 K 3.7 4.1 4.0 < > 4.5 4.7 4.8 CL 99 99 102 < > 111* 109 106 CO2 24 23 20* < > 14* 13* 16* ANIONGAP 20 20 22* < > 21* 22* 20 GLUF 84 102* 95 < > 96 90 150* BUN 104* 106* 104* < > 104* 103* 99* CREATININE 14.91* 15.51* 15.79* < > 16* 15.48* 17* BCR -- -- -- -- 7 7 6 CA 6.5* 6.9* | 6.1* 6.4* < > 6.0* 6.9* 6.9* PROT -- -- -- -- -- -- 7.9 ALB 2.9* 3.0* 3.0* < > -- -- 3.3* GLOB -- -- -- -- -- -- 4.6 BILITOT -- -- -- -- -- -- 0.3 ALP -- -- -- -- -- -- 76 AST -- -- -- -- -- -- 11 ALT -- -- -- -- -- -- 15 EGFR 3* 3* 3* < > 3* 3* 3* < > = values in this interval not displayed. BMP: Recent Labs Lab 10/30/1540910/29/1545110/28/15 0339 10/26/15 1831 10/26/15 0526 10/25/15 1415 NA 139 138 140 < > 142 139 137 K 3.7 4.1 4.0 < > 4.5 4.7 4.8 CL 99 99 102 < > 111* 109 106 CO2 24 23 20* < > 14* 13* 16* ANIONGAP 20 20 22* < > 21* 22* 20 GLUF 84 102* 95 < > 96 90 150* BUN 104* 106* 104* < > 104* 103* 99* CREATININE 14.91* 15.51* 15.79* < > 16* 15.48* 17* BCR -- -- -- -- 7 7 6 CA 6.5* 6.9* | 6.1* 6.4* < > 6.0* 6.9* 6.9* EGFR 3* 3* 3* < > 3* 3* 3* < > = values in this interval not displayed. Recent Labs Lab 10/30/1540910/29/1545110/28/15 0339 MG 2.3 2.4 2.7* Recent Labs Lab 10/26/15 0939 10/26/15 0526 10/25/15 1415 APTT 28 29 28 INR 1.0 1.1 1.0 Recent Labs Lab 10/26/15 0526 CKTOTAL 59 Ultrasound Kidneys And Bladder 10/25/2015 RAMONA REEVES US KIDNEYS AND BLADDER 10/25/2015 6:17 PM History: 35 years. Female. Acute renal failure. Extensive body rash. Technique: A high-resolution g rayscale duplex transducer with color and pulsed Doppler capability was utilized for imaging , with zepeda scale and color image recording in multiple anatomical planes. Comparison exami nations: None. Findings: The right kidney measures 11.3 x 4.3 x 4.0 cm.. No hydronephro sis visualized. Cortical thickness is normal throughout the kidney. No obvious right renal mass or stone visualized. The left kidney measures 9.9 x 5.3 x 4.4 cm.. No hydronephrosis visualized. The contour and cortical thickness of the left kidney are normal. No obvious left renal mass or stone visualized. The estimated filled urinary bladder volume is 106 c c. The bladder wall is smooth, without mass. Bilateral ureteral jets are visualized, indic ating patency of the ureters. Estimated post void bladder volume is 0 cc. 10/25/2015 1. Normal kidneys and bladder. LEM LIST Principal Problem: Acute renal failure (ARF) (HCC) Active Problems: UTI (urinary tract infection) Anemia Loss of weight Fatigue Adrenal mass (HCC) ASSESSMENT & PLAN Patient is a 35 year old female with past medical history of GERD, known adrenal mass who p resents with spreading rash since late August of this year. Patient was found to have ane zhou and elevation in creatinine on labs done earlier this week at her PCP. Principal Problem: Acute renal failure (ARF) (HCC) - Awaiting final pathology report of CT guided renal biopsy. - Primary team discussed case with Dr. Reyna today. - Patient underwent peritoneal dialysis catheter placement by Dr. Ramos, reports no pain or leakage. - Creatinine 14.91, trending down. - Daily CMP. - Dialysis follow-up being set up with case management. Active Problems: UTI (urinary tract infection) - Patient was treated for three days with Rocephin for Klebsiella pneumoniae UTI Anemia - Hemoglobin dropped to 7.7 today - Status post two units of PRBCs on 10/26 - Heart rate and blood pressure have been stable. - Monitor routine vital signs. Rash - Scabies scraping performed,negative. Discontinued isolation. - Benadryl capsule and cream for pruritus. - Could be secondary to uremia. DVT prophylaxis - Heparin 5,000 units every eight hours. Severe Protein-Calorie Malnutrition - Patient has been seen by dietary. Hospital records reviewed. Labs and radiologic studies and reports reviewed. Discussed find ings with participating physicians. Old records reviewed on EMR. Condition guarded and high risk for cardiopulmonary decompensation due to underlying condit ions Disposition: inpatient Code Status: Full Code Irvin Hyde MD-R1 10/30/2015 onversio n Transaction, Provider Unknown - 10/30/2015 10:43 AM PSTFormatting of this note might be di fferent from the original. Case Management by Francoise Aparicio RN at 10/30/15 1043 Author: Francoise Aparicio RN Service: (none) Author Type: High School Music Director Filed: 10/30/15 1044 Date of Service: 10/30/15 104 Status: Signed [employer] Saus[employer] Casing Tier Off: Francoise Aparicio RN (High School Music Director) Phone call to Ayanna Cheek [phone] (covering for Soo Portillo dialysis coordinator), she will work on arranging chair time in the [place] area and notify us of times. onver patric Transaction, Provider Unknown - 10/29/2015 8:02 PM PST Progress Notes by Ashleigh Rudolph RN at 10/29/152001 Author: Ashleigh Rudolph RN Service: Nephrology Author Type: Registered Nurse Filed: 10/29/152006 Date of Service: 10/29/152001 Status: Signed [employer] Sausage Casing Tier Off: Ashleigh Rudolph RN (Registered Nurse) Pt Found with 3rd cycle drain in progress. According to patient's Mom CCPd had been alarmi ng, the primary RN was not notified when the cycler alarmed, because patient's Mom kept rest arting the cycle. 4th cycle terminated due to patient having significant drain pain. Dr Maldonado on notified. Will re-evaluate in the AM, patient is scheduled for XR at this time. Patient a nd her Mom educated at length to call prim RN if the CCPD alarms. Verbalized understanding. onver patric Transaction, Provider Unknown - 10/29/2015 5:38 PM PST Progress Notes by Laura Fung RD at 10/29/15 7808 Author: Laura Fung RD Service: (none) Author Type: Registered Dietitian Filed: 10/30/15 0856 Date of Service: 10/29/15 1738 Status: Signed Bul[employer] Saus[employer] Casing Tier Off: Laura Fung RD (Registered Dietitian) 10/29/15 1703 Subjective Timepoint Follow up (H risk ) Pt c/o Pt started PD. Reports itching, nausea still present. Trying to eat. Fluid / Beverage Intake Liquid Meal Replacement or Supplement Nepro ordered TID, pt reports she drank 2 Food Intake Amount of Food Pt reports eating a 1/2 sandwich today. Type of Food / Meals Renal diabetic maintenance diet Food and Nutrition Knowledge Area(s) and Level of Knowledge Briefly discussed renal diet with pt. Will provide written information. Nutrition-Focused Physical Findings Digestive System (Mouth to Rectum) Nausea and taste changes still present. Anthropometrics Weight change Wt up 4.1 kg since admit Biochemical data, medical tests, and procedures reviewed Biochemical data, medical tests, and procedures reviewed BUN, Cr remain elevated. K WNL. Phos elevated. Recommendations Recommended energy needs Continue diet as ordered. Encourage po intake as tolerated. Cont inue Nepro until po intake improves. Monitor and follow as indicated. Nutritional Risk Nutritional risk Moderate / high Follow up date 11/03/15 Cesar Swann i, MD - 10/29/2015 12:42 PM PSTFormatting of this note might be different fro m the original. Progress Notes by Cesar Gatica MD at 10/29/15 9262 Author: Cesar Gatica MD Service: Hospitalist Author Type: Physician Filed: 10/30/15 0659 Date of Service: 10/29/15 1242 Status: Addendum [employer] C[employer] Tier Off: Cesar Gatica MD (Physician) Related Notes: Original Note by Cesar Gatica MD (Physician) filed at 10/29/15 1990 Merged With [facility] Service: Hospitalist Progress Note Hospital Day: LOS: 4 days SUBJECTIVE Patient Summary: Events Overnight: Patient still has itching No fever or chills NO cp or soa Still has poor appetite and nausea Scheduled Medications calcitRIOL 0.25 mcg Oral Once per day on Fri calcium acetate 1,334 mg Oral TID WC calcium carbonate 500 mg Oral TID AC epoetin chito 10,000 Units Subcutaneous Once iron gluconate 125 mg Intravenous Q24H heparin (porcine) 5000 unit/0.5mL 5,000 Units Subcutaneous Q8H hydrOXYzine 10 mg Oral BID loratadine 10 mg Oral Daily pantoprazole 40 mg Oral BID AC sodium bicarbonate 648 mg Oral TID sodium chloride (PF) 10 mL Intravenous Q8H Continuous Infusions PRN Medications acetaminophen OR acetaminophen, diphenhydrAMINE, [MAR Hold] docusate sodium, fentaNYL * *OR fentaNYL, [MAR Hold] HYDROcodone-acetaminophen OR [MAR Hold] HYDROcodone-acetamino phen, [MAR Hold] lidocaine, [MAR Hold] mineral oil, ondansetron OR ondansetron, polyethy tamanna glycol, [MAR Hold] sodium bicarbonate buffer, zolpidem OBJECTIVE Vital Signs: BP 136/80 mmHg | Pulse 78 | Temp(Src) 98.2 F (36.8 C) (Oral) | Resp 22 | Ht 1.575 m (5' 2.01") | Wt 89.1 kg (196 lb 6.9 oz) | BMI 35.92 kg/m2 | SpO2 97% | LMP 10/24/2015 | Breastf eeding? No Physical Exam General Appearance: well developed, well nourished Eyes: PERRL Neck: neck- supple, no mass, non-tender Lungs: Normal expansion. Clear to auscultation. No rales, rhonchi, or wheezing. Abdomen: Soft, non-tender, normal bowel sounds. No bruits, organomegaly or masses. Extremities: Extremities warm to touch, pink, with no edema. DATA Recent Labs Lab 10/29/15 0452 10/28/15 0339 10/27/15 0546 WBC 7.89 8.98 8.63 HGB 7.1* 7.3* 8.1* HCT 21.6* 22.9* 25.5* PLT 179 185 195 NEUTOPHILPCT -- 74.34 76.55 MONOPCT -- 4.80 4.66 Recent Labs Lab 10/29/15 0452 10/28/15 0339 10/27/15 0546 10/25/15 1415 NA 138 140 139 < > 137 K 4.1 4.0 4.8 < > 4.8 CL 99 102 106 < > 106 CO2 23 20* 15* < > 16* BUN 106* 104* 109* < > 99* CREATININE 15.51* 15.79* 14.69* < > 17* PROT -- -- -- -- 7.9 BILITOT -- -- -- -- 0.3 ALT -- -- -- -- 15 AST -- -- -- -- 11 < > = values in this interval not displayed. Phosphorus: Lab Results Component Value Date PHOS 9.9* 10/29/2015 Invalid input(s): LABALBU Recent Labs Lab 10/29/152 10/28/15 0339 10/27/15 0546 MG 2.4 2.7* 2.7* No results for input(s): AMYLASE in the last 168 hours. No results for input(s): PHART, PO2ART, DMB0XVN, H4ZXHQJG, BEART in the last 168 hours. Recent Labs Lab 10/26/15 0939 10/26/15 0526 10/25/15 1415 APTT 28 29 28 INR 1.0 1.1 1.0 No results for input(s): TSH, T3FREE, FREET4 in the last 168 hours. Recent Labs Lab 10/26/15 0526 CKTOTAL 59 Radiology Ultrasound Kidneys And Bladder 10/25/2015 1. Normal kidneys and bladder. Ct Needle Biopsy Kidney 10/26/[address] core needle biopsy of the right kidney. Electronically sign ed by Rohan Chase MD on 10/26/2015 1:03 PM PROBLEM LIST Principal Problem: Uremia Active Problems: UTI (urinary tract infection) Loss of weight Fatigue Adrenal mass (HCC) Severe protein-calorie malnutrition (HCC) Metabolic acidosis Hyperphosphatemia Itching Hypocalcemia Resolved Problems: * No resolved hospital problems. * ASSESSMENT & PLAN 1. Acute kidney injury with uremia. Her preliminary report from the biopsy is suggesting po ssible chronic kidney process of unknown etiology and since the patient has never had any la bs done, we do not know what her baseline creatinine function is and this renal failure coul d just represent progression of chronic kidney disease. The etiology for her renal failure i s unclear at this point but it is unlikely with this profound scarring noted on the biopsy t hat her renal function is going to recover. The patient has been initiated on peritoneal irving lysis. I appreciate nephrology consultation. 2. Excessive itching, most likely related to uremia. Anticipate improvement with peritoneal dialysis. Scabies scraping negative. 3. Hypocalcemia and hypophosphatemia. Started on appropriate therapy, gradually improving. 4. Severe protein calorie malnourishment. Nutrition consulted. 5. DVT prophylaxis: Heparin. Code Status: Full Code Cesar Gatica MD 10/29/2015 12:42 PM Viri Clark MD - 10/29/2015 12:15 PM PST Progress Notes by Amrik Reyna MD at 10/29/15 8868 Author: Amrik Reyna MD Service: Nephrology Author Type: Physician Filed: 10/29/152006 Date of Service: 10/29/15 1795 Status: Signed [employer] Tier Off: Amrik Reyna MD (Physician) PCP : [facility] LOS: 4 days Ramona Reeves is a 35 y.o. woman followed for CKD stage 5 presenting with uremia a nd needing to start [employer]. Assumed nephrology care from Dr. Chi 10/27/15 Ramona Reeves feels 'Ok' today. Had PD catheter placement and tolerated manual dwell with 750 ml without issues last night. Currently seen on PD. Seen with mother "Lyubov" and . No fever, chills sweats, nausea, vomiting or diarrhea, no shortness of breath, chest pain, cough. ROS: As in History of Present Illness. 7 area ROS was done and was otherwise negative. Examination: Constitutional: Alert, awake, oriented lying flat in bed in no distress. No asterixis. HEENT: Thick neck without JVD, non- icteric sclera. Cardiovascular: S1 soft. No S3. LUNGS:: Effort fair. Clear to auscultation. Abdominal: Soft, non tender on palpation, No distension and no mass. No rebound tenderness and no guarding. PD catheter in situ. Musculoskeletal: No gross deformity, EXT: No LE edema. Distal pulses palpable. Neurological: Speech fluent. Sensorium normal. Gait not tested. Moves all 4 extremities. Skin: Skin is warm and dry. Psychiatric: Pleasant demeanor. The following portions of the patient's history were reviewed and updated as appropriate: l aboratory data, radiologic studies, allergies, current medications, and problem list. Past m edical, surgical, social, and family history was also reviewed as appropriate. Past history summarized as above. Vital Signs: BP 137/87 mmHg | Pulse 78 | Temp(Src) 98.2 F (36.8 C) (Oral) | Resp 22 | Ht 1.575 m (5' 2.01") | Wt 89.1 kg (196 lb 6.9 oz) | BMI 35.92 kg/m2 | SpO2 98% | LMP 10/24/2015 | Breastf eeding? 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 Reeves is a 35 y.o. woman with nonoliguric CKD stage 5 with prelim rep ort of kidney biopsy (as per my discussion with Dr. Chi) showing global glomerulosclerosis on 5 of 6 glomeruli seen. There was not enough sampling for IF or EM. Serological workup [facility] hepatitis panel, HIV testing, syphilis negative. Imaging with kidney ultrasound from 10/10 04/24, seen by myself, shows normal sized kidneys. Diagnostic kidney biopsy has been done . It is quite possible she has chronic kidney disease which is now manifested with urem ic symptoms. She initiated [employer] with PD 10/28/15. BP okay: Clinically close to euvolemic state Noted persistent metabolic acidosis. Calcium low adjusting for low albumin. Likely secondary to chronic kidney disease. Severe hyperphosphatemia likely secondary to chronic disease with symptom of itching. I had a long discussion with her and herself at bedside. At this time she does have persistent acidosis and soft uremic symptoms with fatigue and nausea and with biopsy consistent with chronicity would continue dialysis likely with perit khan dialysis as she is a good candidate for same Plan to continue urgent start CCPD as she has tolerated manual dwell without issues. If she does have drain pain then would try manual drains. Continue Calcium acetate and Ca carbonate. Start calcitriol.. I have had a discussion regarding need for dialysis I discussed PD and HD (pros and cons). I explained uremic symptoms to her in detail (including but not limited to persistent nause a, anorexia, weight loss, leg swelling, shortness of breath, chest pain, metallic taste in m outh). I did explain the potential of if untreated. Diet: 1 gm/kg protein, 1 gm PO4, 2 gm Na, and 2 gm K restricted diet. Dose all meds for an eGFR of less than 15 ml/min/1.73 m2. No use of NSAIDs (including MENDES 2 inhibitors). No use of Magnesium or aluminum containing antacids. No use of Magnesium or phosphorus containing laxatives No Fluid restriction . Strict I/O Daily weights. Keep in + balance. Daily BMP (including Ca, PO4, Mg) AMRIK REYNA MD 10/29/[address] Manzano the above. Seen earlier in the day and charting completed later after rounds. Dictation software, [employer], used which may contain error for similar sounding words even af ter review. Personal communication requested for any clarification. Prognosis guarded in view of multiple comorbid illnesses and severe kidney failure includin g but not limited to potential need for dialysis and . calcium acetate 1,334 mg Oral TID WC calcium carbonate 500 mg Oral TID AC heparin (porcine) 5000 unit/0.5mL 5,000 Units Subcutaneous Q8H loratadine 10 mg Oral Daily pantoprazole 40 mg Oral BID AC [MAR Hold] sodium bicarbonate 1,300 mg Oral TID sodium chloride (PF) 10 mL Intravenous Q8H Mundo Siegel MD - 10/11 10:13 AM PST Progress Notes by Mundo Ramos MD at 10/29/15 1013 Author: Mundo Ramos MD Service: Vascular Surgery Author Type: Physician Filed: 10/29/151013 Date of Service: 10/29/151012 Status: Signed [employer] Tier Off: Mundo Ramos MD (Physician) Merged With [facility] Service: Vascular Surgery Progress Note Peritoneal dialysis catheter site clean and dry. Will start PD today. Will sign off now. Patient will follow-up with me in 2 weeks. Please feel free to call with any questions or concerns. Mundo Ramos MD 10/29/2015 Amrik Clark MD - 10/10 7:52 PM PST Progress Notes by Amrik Reyna MD at 10/28/151951 Author: Amrik Reyna MD Service: Nephrology Author Type: Physician Filed: 10/28/151958 Date of Service: 10/28/151951 Status: Signed [employer] Tier Off: Amrik Reyna MD (Physician) PCP : [facility] LOS: 3 days Ramona Reeves is a 35 y.o. woman followed for ? SHAWN. Assumed nephrology care from Dr. Chi 10/27/15 Ramona Reeves feels 'Ok' today. Had PD catheter placement and tolerated manual dwell with 750 ml without issues. Seen with mother "Lyubov". No fever, chills sweats, nausea, vomiting or diarrhea, no shortness of breath, chest pain, cough. ROS: As in History of Present Illness. 7 area ROS was done and was otherwise negative. Examination: Constitutional: Alert, awake, oriented lying flat in bed in no distress. No asterixis. Look s quite sick. HEENT: Thick neck without JVD, non- icteric sclera. Cardiovascular: S1 soft. No S3. LUNGS:: Effort fair. Clear to auscultation. Abdominal: Soft, non tender on palpation, No distension and no mass. No rebound tenderness and no guarding. PD catheter in situ. Musculoskeletal: No gross deformity, EXT: No LE edema. Distal pulses palpable. Neurological: Speech fluent. Sensorium normal. Gait not tested. Moves all 4 extremities. Skin: Skin is warm and dry. Psychiatric: Pleasant demeanor. The following portions of the patient's history were reviewed and updated as appropriate: l aboratory data, radiologic studies, allergies, current medications, and problem list. Past m edical, surgical, social, and family history was also reviewed as appropriate. Past history summarized as above. Vital Signs: BP 144/90 mmHg | Pulse 76 | Temp(Src) 98.1 F (36.7 C) (Oral) | Resp 20 | Ht 1.575 m (5' 2.01") | Wt 90.8 kg (200 lb 2.8 oz) | BMI 36.60 kg/m2 | SpO2 95% | LMP 10/24/2015 | Breastf eeding? 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 Reeves is a 35 y.o. woman with nonoliguric CKD stage 5 wit prelim repo rt of kidney biopsy (as per my discussion with Dr. Chi) showing global glomerulosclerosis on 5 of 6 glomeruli seen. There was not enough sampling for IF or EM. Serological workup with hepatitis panel, HIV testing, syphilis is negative. Imaging with kidney ultrasound from 10/25/15, seen by myself, shows normal sized kidneys. Diagnostic kidney biopsy has been done 10/26/15. It is quite possible she has chronic kidney disease which is now manifested with uremic sym ptoms. BP okay: Clinically close to euvolemic state Noted persistent metabolic acidosis. Calcium low adjusting for low albumin. Likely secondary to chronic kidney disease. Severe hyperphosphatemia likely secondary to chronic disease with symptom of itching. I had a long discussion with her and herself at bedside. At this time she does have persistent acidosis and soft uremic symptoms with fatigue and nausea and with biopsy consistent with chronicity would initiate dialysis likely with perit khan dialysis as she is a good candidate for same Plan to start urgent start CCPD tomorrow as she has tolerated manual dwell without issue s. Check PtH Start Calcium acetate and Ca carbonate. I had a long discussion regarding potential need for dialysis in the near future. I discussed PD and HD (pros and cons). I explained uremic symptoms to her in detail (including but not limited to persistent nause a, anorexia, weight loss, leg swelling, shortness of breath, chest pain, metallic taste in m outh). I did explain the potential of if untreated. Diet: 1 gm/kg protein, 1 gm PO4, 2 gm Na, and 2 gm K restricted diet. Dose all meds for an eGFR of less than 15 ml/min/1.73 m2. No use of NSAIDs (including MENDES 2 inhibitors). No use of Magnesium or aluminum containing antacids. No use of Magnesium or phosphorus containing laxatives No Fluid restriction . Strict I/O Daily weights. Keep in + balance. Daily BMP (including Ca, PO4, Mg) AMRIK REYNA MD 10/28/[address] Manzano the above. Seen earlier in the day and charting completed later after rounds. Dictation software, [employer], used which may contain error for similar sounding words even af ter review. Personal communication requested for any clarification. Prognosis guarded in view of multiple comorbid illnesses and severe kidney failure includin g but not limited to potential need for dialysis and . calcium acetate 1,334 mg Oral TID WC calcium carbonate 500 mg Oral TID AC heparin (porcine) 5000 unit/0.5mL 5,000 Units Subcutaneous Q8H loratadine 10 mg Oral Daily pantoprazole 40 mg Oral BID AC [MAR Hold] sodium bicarbonate 1,300 mg Oral TID sodium chloride (PF) 10 mL Intravenous Q8H sodium bicarbonate drip 100 mEq/1000 mL 75 mL/hr at 10/28/15 1828 lark, Irvin Iyer MD - 10/28/2015 9:10 AM PST Progress Notes by Irvin Hyde MD-R2 at 10/28/15 0910 Author: Irvin Hyde MD-R2 Service: Hospitalist Author Type: Resident Filed: 10/28/15 7258 Date of Service: 10/28/15909 Status: Attested [employer] Tier Off: Irvin Hyde MD-R2 (Resident-Y2) Cosigner: Cesar Gatica MD at 10/29/15 1245 Attestation signed by Cesar Gatica MD at 10/29/15 1245 I have seen and examined the patient and agree with residents note Merged With [facility] Service: Hospitalist Progress Note Hospital Day: LOS: 3 days Post-Op Day: * No surgery found * SUBJECTIVE Patient Summary: Patient is a 35 year old female with past medical history of GERD, k nown adrenal mass who presents with spreading rash since late August of this year. Patien t was found to have anemia and elevation in creatinine on labs done earlier this week at [facility]. Events Overnight: Patient remains nauseated with three episodes of emesis overnight, states she is itchy all over. Patient is producing small amounts of urine. Patient is NPO a nd states she is hungry and would like water. ROS: 12 point ROS reviewed and negative other than above. Scheduled Medications heparin (porcine) 5000 unit/0.5mL 5,000 Units Subcutaneous Q8H loratadine 10 mg Oral Daily pantoprazole 40 mg Oral BID AC sodium bicarbonate 1,300 mg Oral TID sodium chloride 10 mL Intravenous Q8H Continuous Infusions sodium bicarbonate drip 100 mEq/1000 mL 75 mL/hr at 10/28/15 0232 PRN Medications acetaminophen OR acetaminophen, diphenhydrAMINE, diphenhydrAMINE-zinc acetate, docusate sodium, HYDROcodone-acetaminophen OR HYDROcodone-acetaminophen, lidocaine, mineral oil, ondansetron OR ondansetron, ondansetron OR ondansetron, polyethylene glycol, sodium bicarbonate buffer, zolpidem OBJECTIVE Vital Signs: BP 145/83 mmHg | Pulse 87 | Temp(Src) 98.9 F (37.2 C) (Oral) | Resp 15 | Ht 1.575 m (5' 2.01") | Wt 90.8 kg (200 lb 2.8 oz) | BMI 36.60 kg/m2 | SpO2 92% | LMP 10/24/2015 | Breastf eeding? No Physical Exam: General Appearance: Patient resting in bed, at bedside. Conversive and appropriate to place and person. HEENT: Normocephalic, atraumatic, pupils EOMI, PERRLA. Nose: no septal deviation or dischar ge. Ears: normal size, location, and contour. Throat dry and without exudates. NECK: is supple, full ROM, nontender. LUNGS: good air movement,normal effort. clear to auscultation bilaterally with no wheezing , No rales or rhonchi audible. HEART: Soft heart tones, normal rate. ABDOMEN: Bowel sound is normoactive, abdomen is soft, non-tender non-distended ,no mass pal pable. EXTREMITIES: good distal pulses, No lower extermity edema, No clubbing or cyanosis bilatera lly. NEURO: Cranial Nerves 2-12 appears intact, Gait not tested, Muscle strength good bilaterall y, Sensation grossly intact. PSYCH: Alert, awake and Oriented x3. SKIN: multiple excoriations with different stages of healing on legs, arms, trunk. DATA Recent Labs Lab 10/28/15 0339 10/27/15 0546 10/26/15 1831 10/26/15 0939 10/26/15 0526 WBC 8.98 8.63 -- -- -- 9.11 RBC 2.72* 3.00* -- -- -- 2.21* HCT 22.9* 25.5* 25.1* < > -- 18.2* MCV 84.4 85.0 -- -- -- 82.5 MCH 27.1 27.2 -- -- -- 25.7* MCHC 32.0 31.9* -- -- -- 31.1* RDW 46.4 48.1 -- -- -- 46.4 PLT 185 195 -- -- 222 222 MPV 9.4 9.5 -- -- -- 9.6 DIFFTYPE AUTOMATED AUTOMATED -- -- -- MANUAL < > = values in this interval not displayed. Recent Labs Lab 10/28/1533810/27/1554510/26/15183010/26/15 0510/25/15 1415 K 4.0 4.8 4.5 4.7 4.8 CL 102 106 111* 109 106 CO2 20* 15* 14* 13* 16* ANIONGAP 22* 23* 21* 22* 20 GLUF 95 87 96 90 150* BUN 104* 109* 104* 103* 99* CREATININE 15.79* 14.69* 16* 15.48* 17* BCR -- -- 7 7 6 CA 6.4* 6.6* 6.0* 6.9* 6.9* PROT -- -- -- -- 7.9 ALB 3.0* 3.2* -- -- 3.3* GLOB -- -- -- -- 4.6 BILITOT -- -- -- -- 0.3 ALP -- -- -- -- 76 AST -- -- -- -- 11 ALT -- -- -- -- 15 EGFR 3* 3* 3* 3* 3* BMP: Recent Labs Lab 10/28/1533810/27/1554510/26/15 18310/26/15 0510/25/15 1415 NA 140 139 142 139 137 K 4.0 4.8 4.5 4.7 4.8 CL 102 106 111* 109 106 CO2 20* 15* 14* 13* 16* ANIONGAP 22* 23* 21* 22* 20 GLUF 95 87 96 90 150* BUN 104* 109* 104* 103* 99* CREATININE 15.79* 14.69* 16* 15.48* 17* BCR -- -- 7 7 6 CA 6.4* 6.6* 6.0* 6.9* 6.9* EGFR 3* 3* 3* 3* 3* Recent Labs Lab 10/28/15 0339 10/27/15 0546 MG 2.7* 2.7* Recent Labs Lab 10/26/15 0939 10/26/15 0526 10/25/15 1415 APTT 28 29 28 INR 1.0 1.1 1.0 Recent Labs Lab 10/26/15 0526 CKTOTAL 59 Ultrasound Kidneys And Bladder 10/25/2015 RAMONA REEVES US KIDNEYS AND BLADDER 10/25/2015 6:17 PM History: 35 years. Female. Acute renal failure. Extensive body rash. Technique: A high-resolution g rayscale duplex transducer with color and pulsed Doppler capability was utilized for imaging , with zepeda scale and color image recording in multiple anatomical planes. Comparison exami nations: None. Findings: The right kidney measures 11.3 x 4.3 x 4.0 cm.. No hydronephro sis visualized. Cortical thickness is normal throughout the kidney. No obvious right renal mass or stone visualized. The left kidney measures 9.9 x 5.3 x 4.4 cm.. No hydronephrosis visualized. The contour and cortical thickness of the left kidney are normal. No obvious left renal mass or stone visualized. The estimated filled urinary bladder volume is 106 c c. The bladder wall is smooth, without mass. Bilateral ureteral jets are visualized, indic ating patency of the ureters. Estimated post void bladder volume is 0 cc. 10/25/2015 1. Normal kidneys and bladder. LEM LIST Principal Problem: Acute renal failure (ARF) (HCC) Active Problems: UTI (urinary tract infection) Anemia Loss of weight Fatigue Adrenal mass (HCC) ASSESSMENT & PLAN Patient is a 35 year old female with past medical history of GERD, known adrenal mass who p resents with spreading rash since late August of this year. Patient was found to have ane zhou and elevation in creatinine on labs done earlier this week at her PCP. Principal Problem: Acute renal failure (ARF) (HCC) - Awaiting final pathology report of CT guided renal biopsy. - Primary team discussed case with Dr. Reyna today. - Patient underwent peritoneal dialysis catheter placement by Dr. Ramos. - Creatinine 15.79 today. - Daily CMP. Active Problems: UTI (urinary tract infection) - Patient was treated for three days with Rocephin for Klebsiella pneumoniae UTI Anemia - Hemoglobin dropped to 7.3 today - Status post two units of PRBCs on 10/26 - Heart rate and blood pressure have been stable. Rash - Scabies scraping performed, results pending. - Benadryl capsule and cream for pruritus. - Could be secondary to uremia. DVT prophylaxis - Heparin 5,000 units every eight hours. Severe Protein-Calorie Malnutrition - Patient has been seen by dietary. Hospital records reviewed. Labs and radiologic studies and reports reviewed. Discussed find ings with participating physicians. Old records reviewed on EMR. Condition guarded and high risk for cardiopulmonary decompensation due to underlying condit ions Disposition: inpatient Code Status: Full Code Irvin Hyde MD-R1 10/28/2015 Angela Moreno MD - 10/27/2015 2:41 PM PSTFormatting of this note might be different from the origi nal. Progress Notes by Amrik Reyna MD at 10/27/15 1441 Author: Amrik Reyna MD Service: Nephrology Author Type: Physician Filed: 10/28/15 1228 Date of Service: 10/27/15 1441 Status: Signed [employer] Tier Off: Amrik Reyna MD (Physician) PCP : [facility] LOS: 2 days Ramona Reeves is a 35 y.o. woman followed for ? SHAWN. Assumed nephrology care from Dr. Chi 10/27/15 Ramona Reeves feels 'quite bad' today. No fever, chills sweats, persistent nausea but no vomiting or diarrhea, no shortness of joselito ath, chest pain, cough. ROS: As in History of Present Illness. 7 area ROS was done and was otherwise negative. Examination: Constitutional: Alert, awake, oriented lying flat in bed in no distress. No asterixis. Look s quite sick. HEENT: Thick neck without JVD, non- icteric sclera. Cardiovascular: S1 soft. No S3. LUNGS:: Effort fair. Clear to auscultation. Abdominal: Soft, non tender on palpation, No distension and no mass. No rebound tenderness and no guarding. Musculoskeletal: No gross deformity, EXT: No LE edema. Distal pulses palpable. Neurological: Speech fluent. Sensorium normal. Gait not tested. Moves all 4 extremities. Skin: Skin is warm and dry. Psychiatric: Pleasant demeanor. The following portions of the patient's history were reviewed and updated as appropriate: l aboratory data, radiologic studies, allergies, current medications, and problem list. Past m edical, surgical, social, and family history was also reviewed as appropriate. Past history summarized as above. Vital Signs: BP 145/91 mmHg | Pulse 84 | Temp(Src) 98.2 F (36.8 C) (Oral) | Resp 16 | Ht 1.575 m (5' 2.01") | Wt 87.1 kg (192 lb 0.3 oz) | BMI 35.11 kg/m2 | SpO2 95% | LMP 10/24/2015 | Breastf eeding? No Data evaluation: Lab Results Component Value Date BUN 109* 10/27/2015 CREATININE 14.69* 10/27/2015 EGFR 3* 10/27/2015 NA 139 10/27/2015 K 4.8 10/27/2015 CL 106 10/27/2015 CO2 15* 10/27/2015 CA 6.6* 10/27/2015 PHOS 10.6* 10/27/2015 MG 2.7* 10/27/2015 ALB 3.2* 10/27/2015 HGB 8.1* 10/27/2015 Active issues Acute kidney injury Proteinuria Microscopic hematuria Severe hypophosphatemia Severe iron deficiency anemia Hypermagnesemia Metabolic acidosis Klebsiella urinary tract infection Assessment and Recommendations: Ms. Reeves is a 35 y.o. woman with nonoliguric acute kidney injury stage I II. Serological workup with hepatitis panel, HIV testing, syphilis is negative. Imaging with kidney ultrasound from 10/25/15, seen by myself, shows normal sized kidneys. Diagnostic kidney biopsy has been done 10/26/15. It is quite possible she has chronic kidney disease which is now manifested with uremic sym ptoms. Kidney function about the same with no real change in the urine creatinine even though s he has been hydrated. Diagnostic kidney biopsy report is pending at this time BP okay: Clinically close to euvolemic state Noted persistent metabolic acidosis. Calcium low adjusting for low albumin. Likely secondary to chronic kidney disease. Severe hyperphosphatemia likely secondary to chronic disease with symptom of itching. I had a long discussion with her and herself at bedside. At this time she does have persistent acidosis and soft uremic symptoms with fatigue and nausea and if the kidney biopsy is consistent with chronicity then would initiate dialysis likely with peritoneal dialysis as she is a good candidate for same I had a long discussion regarding potential need for dialysis in the near future. I discussed PD and HD (pros and cons). I explained uremic symptoms to her in detail (including but not limited to persistent nause a, anorexia, weight loss, leg swelling, shortness of breath, chest pain, metallic taste in m outh). I did explain the potential of if untreated. Diet: 1 gm/kg protein, 1 gm PO4, 2 gm Na, and 2 gm K restricted diet. Dose all meds for an eGFR of less than 15 ml/min/1.73 m2. No use of NSAIDs (including MENDES 2 inhibitors). No use of Magnesium or aluminum containing antacids. No use of Magnesium or phosphorus containing laxatives No Fluid restriction . Strict I/O Daily weights. Keep in + balance. Daily BMP (including Ca, PO4, Mg) AMRIK REYNA MD 10/27/[address] Manzano the above. Seen earlier in the day and charting completed later after rounds. Dictation software, [employer], used which may contain error for similar sounding words even af ter review. Personal communication requested for any clarification. Prognosis guarded in view of multiple comorbid illnesses and severe kidney failure includin g but not limited to potential need for dialysis and . cefTRIAXone 1 g Intravenous Q24H heparin (porcine) 5000 unit/0.5mL 5,000 Units Subcutaneous Q8H loratadine 10 mg Oral Daily pantoprazole 40 mg Oral BID AC sodium bicarbonate 1,300 mg Oral TID sodium chloride 10 mL Intravenous Q8H sodium bicarbonate drip 100 mEq/1000 mL 75 mL/hr at 10/26/15 1245 lark, Irvin Iyer MD - 10/27/2015 11:23 AM PST Progress Notes by Irvin Hyde MD-R2 at 10/27/15 1123 Author: Irvin Hyde MD-R2 Service: Hospitalist Author Type: Resident Filed: 10/27/15 0356 Date of Service: 10/27/15 1123 Status: Attested [employer] Tier Off: Irvin Hyde MD-R2 (Resident-Y2) Cosigner: Cesar Gatica MD at 10/28/15 1444 Attestation signed by Cesar Gatica MD at 10/28/15 1444 I have seen and examined the patient and agree with the residents note Merged With [facility] Service: Hospitalist Progress Note Hospital Day: LOS: 2 days Post-Op Day: * No surgery found * SUBJECTIVE Patient Summary: Patient is a 35 year old female with past medical history of GERD, k nown adrenal mass who presents with spreading rash since late August of this year. Kimberly sanon was found to have anemia and elevation in creatinine on labs done earlier this week at [facility]. Events Overnight: Patient is still fatigued and having itchiness all over the body. Patient has been nauseated but denies vomiting. Patient states she has not had a bowel move ment. states that no one else has a similar rash at home. ROS: 12 point ROS reviewed and negative other than above. Scheduled Medications cefTRIAXone 1 g Intravenous Q24H heparin (porcine) 5000 unit/0.5mL 5,000 Units Subcutaneous Q8H loratadine 10 mg Oral Daily pantoprazole 40 mg Oral BID AC sodium bicarbonate 1,300 mg Oral TID sodium chloride 10 mL Intravenous Q8H Continuous Infusions sodium bicarbonate drip 100 mEq/1000 mL 75 mL/hr at 10/26/15 1245 PRN Medications acetaminophen OR acetaminophen, diphenhydrAMINE, diphenhydrAMINE-zinc acetate, HYDROcod one-acetaminophen OR HYDROcodone-acetaminophen, lidocaine, mineral oil, ondansetron OR ondansetron, ondansetron OR ondansetron, polyethylene glycol, sodium bicarbonate buff er, zolpidem OBJECTIVE Vital Signs: BP 136/87 mmHg | Pulse 93 | Temp(Src) 98.3 F (36.8 C) (Oral) | Resp 16 | Ht 1.575 m (5' 2.01") | Wt 87.1 kg (192 lb 0.3 oz) | BMI 35.11 kg/m2 | SpO2 94% | LMP 10/24/2015 | Breastf eeding? No Physical Exam: General Appearance: Patient laying in bed, at bedside. Conversive and appropriate to place and person. HEENT: Normocephalic, atraumatic, pupils EOMI, PERRLA. Nose: no septal deviation or dischar ge. Ears: normal size, location, and contour. Throat dry and without exudates. NECK: is supple, full ROM, nontender. LUNGS: good air movement, no increased work of breathing. clear to auscultation bilaterally with no wheezing, No rales or rhonchi audible. HEART: S1S2, Regular rate and rhythm without murmurs, gallops or rubs. ABDOMEN: Bowel sound is normoactive, abdomen is soft, non-tender non-distended ,no mass pal pable. EXTREMITIES: good distal pulses, No lower extermity edema, No clubbing or cyanosis bilatera lly. NEURO: Cranial Nerves 2-12 appears intact, Gait not tested, Muscle strength good bilaterall y, Sensation grossly intact. PSYCH: Alert, awake and Oriented x3. SKIN: multiple excoriations with different stages of healing on legs, arms, trunk. DATA Recent Labs Lab 10/27/1554510/26/15 1831 10/26/15 1556 10/26/15 0939 10/26/15 0526 10/25/15 1415 WBC 8.63 -- -- -- 9.11 11.42* RBC 3.00* -- -- -- 2.21* 2.69* HCT 25.5* 25.1* 25.3* -- 18.2* 22.3* MCV 85.0 -- -- -- 82.5 82.9 MCH 27.2 -- -- -- 25.7* 25.0* MCHC 31.9* -- -- -- 31.1* 30.2* RDW 48.1 -- -- -- 46.4 44.6 PLT 195 -- -- 222 222 253 MPV 9.5 -- -- -- 9.6 9.0 DIFFTYPE AUTOMATED -- -- -- MANUAL MANUAL Recent Labs Lab 10/27/15 0546 10/26/15 1831 10/26/15 0526 10/25/15 1415 K 4.8 4.5 4.7 4.8 CL 106 111* 109 106 CO2 15* 14* 13* 16* ANIONGAP 23* 21* 22* 20 GLUF 87 96 90 150* BUN 109* 104* 103* 99* CREATININE 14.69* 16* 15.48* 17* BCR -- 7 7 6 CA 6.6* 6.0* 6.9* 6.9* PROT -- -- -- 7.9 ALB 3.2* -- -- 3.3* GLOB -- -- -- 4.6 BILITOT -- -- -- 0.3 ALP -- -- -- 76 AST -- -- -- 11 ALT -- -- -- 15 EGFR 3* 3* 3* 3* BMP: Recent Labs Lab 10/27/15 0546 10/26/15 1831 10/26/15 0526 10/25/15 1415 NA 139 142 139 137 K 4.8 4.5 4.7 4.8 CL 106 111* 109 106 CO2 15* 14* 13* 16* ANIONGAP 23* 21* 22* 20 GLUF 87 96 90 150* BUN 109* 104* 103* 99* CREATININE 14.69* 16* 15.48* 17* BCR -- 7 7 6 CA 6.6* 6.0* 6.9* 6.9* EGFR 3* 3* 3* 3* Recent Labs Lab 10/27/15 0546 MG 2.7* Recent Labs Lab 10/26/15 0939 10/26/15 0526 10/25/15 1415 APTT 28 29 28 INR 1.0 1.1 1.0 Recent Labs Lab 10/26/15 0526 CKTOTAL 59 Ultrasound Kidneys And Bladder 10/25/2015 RAMONA MURRAY KELLYRITCHIE US KIDNEYS AND BLADDER 10/25/2015 6:17 PM History: 35 years. Female. Acute renal failure. Extensive body rash. Technique: A high-resolution g rayscale duplex transducer with color and pulsed Doppler capability was utilized for imaging , with zepeda scale and color image recording in multiple anatomical planes. Comparison exami nations: None. Findings: The right kidney measures 11.3 x 4.3 x 4.0 cm.. No hydronephro sis visualized. Cortical thickness is normal throughout the kidney. No obvious right renal mass or stone visualized. The left kidney measures 9.9 x 5.3 x 4.4 cm.. No hydronephrosis visualized. The contour and cortical thickness of the left kidney are normal. No obvious left renal mass or stone visualized. The estimated filled urinary bladder volume is 106 c c. The bladder wall is smooth, without mass. Bilateral ureteral jets are visualized, indic ating patency of the ureters. Estimated post void bladder volume is 0 cc. 10/25/2015 1. Normal kidneys and bladder. LEM LIST Principal Problem: Acute renal failure (ARF) (HCC) Active Problems: UTI (urinary tract infection) Anemia Loss of weight Fatigue Adrenal mass (HCC) ASSESSMENT & PLAN Patient is a 35 year old female with past medical history of GERD, known adrenal mass who p resents with spreading rash since late August of this year. Patient was found to have ane zhou and elevation in creatinine on labs done earlier this week at her PCP. Principal Problem: Acute renal failure (ARF) (HCC) - Patient has been seen by Dr. Chi, appreciate recommendations. CT guided renal biopsy performed today, awaiting pathology. - Primary team discussed case with Dr. Reyna today. - Creatinine trending down, 14.69 today. BUN 109. - [place] and Lambda light chain ratio is normal. Active Problems: UTI (urinary tract infection) - Urine culture shows Klebsiella pneumoniae >100,000 CFU sensitive to Rocephin. - Patient has had three days of Rocephin, discontinued today. Anemia - Hemoglobin is 8.1 today. - Patient was type and crossed, given two units of PRBCs. - Heart rate and blood pressure have been stable. Rash - Scabies scraping performed, results pending. - Benadryl capsule and cream for pruritus. DVT prophylaxis - Heparin 5,000 units every eight hours Severe Protein-Calorie Malnutrition - Patient has been seen by [facility] Hospital records reviewed. Labs and radiologic studies and reports reviewed. Discussed find ings with participating physicians. Old records reviewed on EMR. Condition guarded and high risk for cardiopulmonary decompensation due to underlying condit ions Disposition: inpatient Code Status: Full Code Irvin Hyde MD-R1 10/27/2015 onversio n Transaction, Provider Unknown - 10/26/2015 2:59 PM PSTFormatting of this note might be di fferent from the original. Case Management by LUCILLE Neumann at 10/26/15 7824 Author: LUCILLE Neumann Service: (none) Author Type: High School Music Director Filed: 10/26/15 4728 Date of Service: 10/26/151458 Status: Signed Bulk Sausage Casing Tier Off: LUCILLE Neumann (High School Music Director) 10/26/15 1216 Discharge Planning Evaluation Admitting Diagnosis Acute renal failure (ARF) (HCC) Readmission No Living Arrangements Spouse/significant other;Family members Support Systems Spouse/significant other;Family members Type of Residence Private residence House type House 2 story Steps to enter 1 Bathrooms on 1st Floor 1-Full Independent with ADL's Yes Independent with Mobility Yes Home Care Services No Caregiver after Discharge No;Other (comment) (Spouse and family members will assist as needed.) Mental Status Unable to answer questions;Other (comment) (Patient was asleep so patient's spouse (Jose C Reeves) answered CM assessment questions.) Prior functional status (Independent with ADL's) Power of Negative Retoucher No Anticipated Discharge Plan Post Acute Care Needs Other (comment) (TBD) Resources Financial concerns No Transportation issues No;Comment (Spouse - Jose C [phone] will transport.) Patient/Family concerns [facility] in [facility] Previous home health equipment No Vascular access device No Ostomy/Drains/Appliances No Anticipated Disposition Facility Type Home Met with patient's spouse (Jose C Reeves [phone]) for CM assessment (due to patient st ill being asleep) and discussed discharge planning. Pt is a 35 y.o., female who lives with h er spouse, sister and sister's children in [facility]. The patient has had significant weight loss in past few months...complaining that nothing tastes good, by report. Patient a [facility]mitted to [facility] with Dx of renal failure on 10-25-15. Spouse and family have been visiting a in attentive. Patient's PCP is: [facility] Patient's insurance:[employer] and Medicaid Coverage concerns: no Medication coverage/concerns: no [facility] Bedside Delivery: Community resources utilized / needed: TBD Assistance in transportation: Spouse - Jose C [phone] Identification of any specific education / training: TBD Barriers to Discharge / Alternative housing needed: TBD Anticipated DCP: TBD Lois Arnold ATHAkoum, Chago Peter MD - 10/26/2015 12:02 PM PSTFormatting of this note might be different from e original. Progress Notes by Chago Chi MD at 10/26/15 120 Author: Chago Chi MD Service: Nephrology Author Type: Physician Filed: 10/27/15115 Date of Service: 10/26/151201 Status: Addendum Bulk Sausage Casing Tier Off: Chago Chi MD (Physician) Related Notes: Original Note by Chago Chi MD (Physician) filed at 10/27/15 011 Merged With [facility] Service: Nephrology Progress Note Hospital Problem List: Principal Problem: Acute renal failure (ARF) (HCC) Active Problems: UTI (urinary tract infection) Anemia Loss of weight Fatigue Adrenal mass (HCC) Severe protein-calorie malnutrition (HCC) The patient says that she feels 'tired' today. she denies any cp, sob, abd pain, n/v. her urine output is down. The following portions of the patient's history were reviewed and updated as appropriate: l aboratory data, radiologic studies, allergies, current medications, and problem list. As in History of Present Illness & Assessment below. All the pertinent systems were reviewe d and were otherwise negative. cefTRIAXone 1 g Intravenous Q24H epoetin chito 10,000 Units Subcutaneous Once heparin (porcine) 5000 unit/0.5mL 5,000 Units Subcutaneous Q8H loratadine 10 mg Oral Daily pantoprazole 40 mg Oral BID AC sodium bicarbonate 1,300 mg Oral TID sodium chloride 10 mL Intravenous Q8H sodium bicarbonate drip 100 mEq/1000 mL 75 mL/hr at 10/26/15 1245 P.E. BP 120/73 mmHg | Pulse 98 | Temp(Src) 98.9 F (37.2 C) (Oral) | Resp 16 | Ht 1.575 m (5' 2.01") | Wt 87.1 kg (192 lb 0.3 oz) | BMI 35.11 kg/m2 | SpO2 93% | LMP 10/24/2015 | Breastf eeding? No General appearance: Pleasant, not in acute distress. Sick-looking Neck: Supple without tracheal deviation or jugular venous distension. Head and ENT: Head is atraumatic. The oropharynx is without erythema or thrush. Eyes: Anicteric. The extraocular muscle movements are normal. Lungs: Good A/E bilaterally. There are no wheezes. Heart: Regular rate and rhythm without any rub, gallop. no murmur. Abdominal exam: Obese. Soft and nontender with normal bowel sounds. Musculoskeletal: No costovertebral angle tenderness bilaterally. Extremities: Warm to touch with 1+ leg edema. There is no cyanosis. Skin: There are no petechiae, or ecchymosis. She has a scattered papular rash all over her body Neurological: Awake, alert, and oriented to time, place, and person. Normal gross motor pow er. There is no asterixis. Psychiatric: The patient s behavior is normal. Judgment and thought content are normal. Lab Results Component Value Date BUN 104* 10/26/2015 CREATININE 16* 10/26/2015 EGFR 3* 10/26/2015 NA 142 10/26/2015 K 4.5 10/26/2015 CL 111* 10/26/2015 CO2 14* 10/26/2015 CA 6.0* 10/26/2015 ALB 3.3* 10/25/2015 HGB 7.7* 10/26/2015 Assessment: Ms. Reeves is a 35 y.o. female patient with stage 3 SHAWN (acute kidney injury): unknown sweetie ology. As her vague uremic sxs started 2 months ago: It remains possible that she had the AK I several weeks or months ago & we are seeing the tail of it now. R/O AIN from Omeprazole She has acute uremia; but she has no uremic encephalopathy currently. Admitted with severe SHAWN. RENAL FUNCTION: Severely worse than baseline BLOOD PRESSURE: ok ELECTROLYTES: abnormal Sodium: ok Potassium: ok Calcium: corrected is ok Magnesium: To be checked Phosphorus: To be checked Acid/Base: Met acidosis persists ANEMIA: severe ALBUMIN: low URINALYSIS: No UTI found so far; +ve pyuria; +ve microscopic hematuria VOLUME STATUS: Slightly depleted I discussed today with Ms. Reeves the meaning of her severe SHAWN and the interaction of chema t with her hemodynamics. Recommendations: 1. Keep off omeprazole 2. IVF bicarb as ordered. 3. Get renal biopsy results tomorrow 4. No acute indication for [employer] WORKER at this time. 5. Epo subcut 10K x1 (given) 6. No PRBC transfusion need 7. Add-on anemia studies 8. Repeat rU/A in AM + iCa & venous pH 9. With AM labs: RFP, Mag. 10. 11. Strict I/O & daily weights. 12. Dose all of her meds to her current estimated GFR. 13. Continue to avoid all kinds of nephrotoxins. 14. Target euvolumia with a MAP>75 mmHg as possible. 15. Given her tendency for anasarca: Encourage adequate nutritional intake & close dietitia n F/U. Encourage ambulation safely. Encourage the adequate use of an incentive spirometer. I discussed with the primary team the case at the time of this encounter. I spent 35 total minutes today in reviewing & updating the patient's chart, formulating a p joni, in addition to patient & her at the bedside education and discussions with the primary/consulting team. CHAGO CHI MD 10/27/2015 lIrvin salazar M D - 10/26/2015 11:36 AM PST Progress Notes by Irvin Hyde MD-R2 at 10/26/15 0599 Author: Irvin Hyde MD-R2 Service: Hospitalist Author Type: Resident Filed: 10/26/15 7799 Date of Service: 10/26/15 1136 Status: Attested Bulk Sausage Casing Tier Off: Irvin Hyde MD-R2 (Resident-Y2) Cosigner: Cesar Gatica MD at 10/27/15 1080 Attestation signed by Cesar Gatica MD at 10/27/15 1630 I have seen and examined the patient and agree with the residents note Merged With [facility] Service: Hospitalist Progress Note Hospital Day: LOS: 1 day Post-Op Day: * No surgery found * SUBJECTIVE Patient Summary: Patient is a 35 year old female with past medical history of GERD, k nown adrenal mass who presents with spreading rash since late August of this year. Patiritchie sanon was found to have anemia and elevation in creatinine on labs done earlier this week at [facility]. Events Overnight: Patient seen and examined. Patient states she is having fatigue, n ausea, pain with deep inspiration, swelling in the hands. Patient denies shortness of breat h, vomiting, abdominal pain, constipation, diarrhea, bleeding. ROS: 12 point ROS reviewed and negative other than above. Scheduled Medications cefTRIAXone 1 g Intravenous Q24H [START ON 10/27/2015] epoetin chito 10,000 Units Subcutaneous Once heparin (porcine) 5000 unit/0.5mL 5,000 Units Subcutaneous Q8H lidocaine 10 mL Intradermal Once lidocaine buffered 1% 0.5 mL Intradermal Once loratadine 10 mg Oral Daily pantoprazole 40 mg Oral BID AC sodium bicarbonate buffer 5 mL Infiltration Once sodium chloride 10 mL Intravenous Q8H Continuous Infusions sodium chloride (IV) 110 mL/hr at 10/26/15 0717 PRN Medications acetaminophen OR acetaminophen, diphenhydrAMINE, HYDROcodone-acetaminophen OR HYDRO codone-acetaminophen, lidocaine, ondansetron OR ondansetron, ondansetron OR ondanset sonya, polyethylene glycol, sodium bicarbonate buffer, zolpidem OBJECTIVE Vital Signs: BP 133/82 mmHg | Pulse 90 | Temp(Src) 97.9 F (36.6 C) (Oral) | Resp 14 | Ht 1.575 m (5' 2.01") | Wt 87.1 kg (192 lb 0.3 oz) | BMI 35.11 kg/m2 | SpO2 100% | LMP 10/24/2015 | Breast feeding? No Physical Exam: General Appearance: Patient laying in bed, appears fatigued, Mother (Lyubov) at bedside. C onversive and appropriate to place and person. HEENT: Normocephalic, atraumatic, pupils EOMI, PERRLA. Nose: no septal deviation or dischar ge. Ears: normal size, location, and contour. Throat dry and without exudates. NECK: is supple, full ROM, nontender. LUNGS: good air movement, clear to auscultation bilaterally with no wheezing, No rales or rhonchi audible. HEART: S1S2, Regular rate and rhythm without murmurs, gallops or rubs. ABDOMEN: Bowel sound is normoactive, abdomen is soft, non-tender non-distended ,no mass pal pable. EXTREMITIES: good distal pulses, No lower extermity edema, No clubbing or cyanosis bilatera lly. NEURO: Cranial Nerves 2-12 appears intact, Gait not tested, Muscle strength good bilaterall y, Sensation grossly intact. PSYCH: Alert, awake and Oriented x3. SKIN: multiple excoriations with different stages of healing on body. DATA Recent Labs Lab 10/26/15 0939 10/26/15 0526 10/25/15 1415 WBC -- 9.11 11.42* RBC -- 2.21* 2.69* HCT -- 18.2* 22.3* MCV -- 82.5 82.9 MCH -- 25.7* 25.0* MCHC -- 31.1* 30.2* RDW -- 46.4 44.6 PLT 222 222 253 MPV -- 9.6 9.0 DIFFTYPE -- MANUAL MANUAL Recent Labs Lab 10/26/15 0526 10/25/15 1415 K 4.7 4.8 CL 109 106 CO2 13* 16* ANIONGAP 22* 20 GLUF 90 150* BUN 103* 99* CREATININE 15.48* 17* BCR 7 6 CA 6.9* 6.9* PROT -- 7.9 ALB -- 3.3* GLOB -- 4.6 BILITOT -- 0.3 ALP -- 76 AST -- 11 ALT -- 15 EGFR 3* 3* BMP: Recent Labs Lab 10/26/15 0526 10/25/15 1415 NA 139 137 K 4.7 4.8 CL 109 106 CO2 13* 16* ANIONGAP 22* 20 GLUF 90 150* BUN 103* 99* CREATININE 15.48* 17* BCR 7 6 CA 6.9* 6.9* EGFR 3* 3* No results for input(s): MG in the last 168 hours. Recent Labs Lab 10/26/15 0939 10/26/15 0526 10/25/15 1415 APTT 28 29 28 INR 1.0 1.1 1.0 Recent Labs Lab 10/26/15 05 CKTOTAL 59 Ultrasound Kidneys And Bladder 10/25/2015 RAMONA REEVES US KIDNEYS AND BLADDER 10/25/2015 6:17 PM History: 35 years. Female. Acute renal failure. Extensive body rash. Technique: A high-resolution g rayscale duplex transducer with color and pulsed Doppler capability was utilized for imaging , with zepeda scale and color image recording in multiple anatomical planes. Comparison exami nations: None. Findings: The right kidney measures 11.3 x 4.3 x 4.0 cm.. No hydronephro sis visualized. Cortical thickness is normal throughout the kidney. No obvious right renal mass or stone visualized. The left kidney measures 9.9 x 5.3 x 4.4 cm.. No hydronephrosis visualized. The contour and cortical thickness of the left kidney are normal. No obvious left renal mass or stone visualized. The estimated filled urinary bladder volume is 106 c c. The bladder wall is smooth, without mass. Bilateral ureteral jets are visualized, indic ating patency of the ureters. Estimated post void bladder volume is 0 cc. 10/25/2015 1. Normal kidneys and bladder. LEM LIST Principal Problem: Acute renal failure (ARF) (HCC) Active Problems: UTI (urinary tract infection) Anemia Loss of weight Fatigue Adrenal mass (HCC) ASSESSMENT & PLAN Patient is a 35 year old female with past medical history of GERD, known adrenal mass who p resents with spreading rash since late August of this year. Patient was found to have ane zhou and elevation in creatinine on labs done earlier this week at her PCP. Principal Problem: Acute renal failure (ARF) (HCC) - Patient presented with creatinine 17 which improved to 15.5. BUN of 103. - Patient is having good urine output. - Patient has been seen by Dr. Chi, appreciate recommendations. CT guided renal biopsy performed today, awaiting pathology. - Complement C3 is low, Myoglobin positive. Active Problems: UTI (urinary tract infection) - Urinalysis shows large amount of blood with proteinuria, trace leukocyte esterase and 4+ bacteria. - Urine culture >100,000 CFU. Gram negative rods. - Patient received two doses of rocephin. - Patient has been afebrile with WBCs trending down. - Blood cultures collected. Anemia - Hemoglobin of 6.7 on admission that dropped to 5.7. - Patient was type and crossed, given two units of PRBCs. - Heart rate and blood pressure have been stable. Rash - Scabies scraping performed. DVT prophylaxis - Heparin 5,000 units every eight hours Severe Protein-Calorie Malnutrition - Patient has been seen by dietary Hospital records reviewed. Labs and radiologic studies and reports reviewed. Discussed find ings with participating physicians. Old records reviewed on EMR. Condition guarded and high risk for cardiopulmonary decompensation due to underlying condit ions Disposition: inpatient Code Status: Full Code Irvin Hyde MD-R1 10/26/2015 onversio n Transaction, Provider Unknown - 10/26/2015 11:00 AM PSTFormatting of this note might be di fferent from the original. Progress Notes by Jess Paz Parts Sales Representative at 10/26/15 1100 Author: Aleksandra Corral Intern Service: (none) Author Type: Registered Dietitian Filed: 10/26/15 1100 Date of Service: 10/26/15 1100 Status: Attested Bulk Sausage Casing Tier Off: Ysabel Corraletic Intern (Registered Dietitian) Cosigner: ALL Rider 10/26/15 1137 Attestation signed by Isaiah Grimaldo RD at 10/26/[address] 10/26/15 1004 Subjective Timepoint Admit Pt c/o Pt triggered for screen secondary to weight loss and poor oral intake. Admitted to [facility] with acute renal failure of unknown etiology. Pt was out of department having a biop sy of kidneys, diet history obtained from family. Mother reports pt has had wt loss and poo r po intake since Nov of this year. Pt has some appetite, but only eating bites at this rl e. Reported by Family Fluid / Beverage Intake Oral Fluids Amount Pt NPO for biopsy today, NS running at 110mL/hr. Liquid Meal Replacement or Supplement Will order Nepro TID. Food Intake Amount of Food Meals offered 3xs daily, eats bites only. Type of Food / Meals Currently NPO, renal diet after biopsy today. Nutrition-Focused Physical Findings Digestive System (Mouth to Rectum) Family reports pt is having altered taste sensation in t hat food has no taste. Anthropometrics Weight change Family reports Pt weighed 102.3 kg in 2015, now 85 kg, which is a loss o f 17.3 kg or 16.8%. Weight loss of this amount is considered severe. Biochemical data, medical tests, and procedures reviewed Biochemical data, medical tests, and procedures reviewed BUN elevated at 103, Cr high at 15 .48, eGFR very low at 3. Labs are consistant with diagnosis of SHAWN. Estimated Energy Needs Total Energy Estimated Needs 1762 - 2056 kcal per day. Method for Estimating Needs 30 - 35 kcal per day, based on admit wt of 58.75 kg. Estimated Protein Needs Total Protein Estimated Needs 59 - 71 g per day Method for Estimating Needs 1 - 1.2 g per kg, based on admit wt of 58.75 kg. Recommendations Recommended energy needs ADAT to renal diet when indicated. Suggest high calorie small freq uent meals, po intake encouraged. Nepro supplement to be ordered TID for aditional calories and protein. Will continue to follow, further nutrition interventions as indicated. Nutritional Risk Nutritional risk High Follow up date 10/29/[address] Assessed Weight 85 kg (187 lb 6.3 oz) Weight Loss time frame 1 Month (2 months) Weight 1 month ago 102.3 kg (225 lb 8.5 oz) % weight loss from 1 month ago (!) -16.91 % Malnutrition in the Context Of Acute Illness Clinical Characteristics indicative of severe malnutrition 50% or less of EER within 5 days ;>5% weight loss over 1 month Protein-Calorie Malnutrition Type (!) Severe LEIGHTON Corral Rohan Tran MD - 10/26/2015 10:18 AM PSTFormatting of this note might be different from the or iginal. Progress Notes by Rohan Chase MD at 10/26/15 1018 Author: Rohan Chase MD Service: (none) Author Type: Physician Filed: 10/26/15 1019 Date of Service: 10/26/15 1018 Status: Signed Bulk Sausage Casing Tier Off: Rohan Chase MD (Physician) Merged With [facility] Service: Radiology Sedation Note See separate procedure note as indicated. Sedation type: Moderate Indications for procedural sedation: CT guided kidney biopsy Last meal: Last night Moderate Sedation Presedation Assessment completed immediately prior to procedure. ASA Classification: ASA 2: Patient with a mild systemic disease Mallampati Classification: II: Visibility of hard and soft palate, upper portion of tonsils and uvula Preparation: Plan explained to: patient Consent signed: yes Oximetry: yes IV access: yes Suction: yes munitions worker: yes Heart sounds: normal Lung sounds: clear Sedation agent(s) used: Versed, Fentanyl I personally supervised: sedation and procedure(s). Total sedation time: See nurse's notes for total time. Rohan Chase MD 10/26/2015 onversio n Transaction, Provider Unknown - 10/26/2015 7:01 AM PSTFormatting of this note might be di fferent from the original. Progress Notes by Christina Snowden RN at 10/26/15700 Author: Christina Snowden RN Service: (none) Author Type: Registered Nurse Filed: 10/26/15701 Date of Service: 10/26/15700 Status: Signed Bulk Sausage Casing Tier Off: Christina Snowden RN (Registered Nurse) Dr. Chi notified of hemoglobin and hematocrit results this morning. Orders to transfuse t he 2 units now. Kandice Snowden RN onver patric Transaction, Provider Unknown - 10/26/2015 12:57 AM PST Progress Notes by Christina Snowden RN at 10/26/1556 Author: Christina Snowden RN Service: (none) Author Type: Registered Nurse Filed: 10/26/1556 Date of Service: 10/26/1556 Status: Signed Bulk Sausage Casing Tier Off: Christina Snowden RN (Registered Nurse) Patient and mother informed of need for urine specimen. Kandice Snowden RN onver patric Transaction, Provider Unknown - 10/25/2015 10:00 PM PST Progress Notes by Christina Snowden RN at 10/25/152199 Author: Christina Snowden RN Service: (none) Author Type: Registered Nurse Filed: 10/25/152205 Date of Service: 10/25/152199 Status: Signed Bulk Sausage Casing Tier Off: Christina Snowden RN (Registered Nurse) Confirmed with Dr. Chi no blood transfusion to be given tonight. Also informed of new c/o chest discomfort. Kandice Snowden RN onver patric Transaction, Provider Unknown - 10/25/2015 9:55 PM PST Progress Notes by Christina Snowden RN at 10/25/152154 Author: Christina Snowden RN Service: (none) Author Type: Registered Nurse Filed: 10/25/152207 Date of Service: 10/25/152154 Status: Signed Bulk Sausage Casing Tier Off: Christina Snowden RN (Registered Nurse) Dr. Chavez notified of patient c/o chest discomfort 10 with deep breaths, sharp in charac ter. Also informed patient is refusing blood transfusion based on recs from Dr. Chi. Kandice mills RN onver patric Transaction, Provider Unknown - 10/25/2015 9:35 PM PST Progress Notes by Georgette Cardozo RPH at 10/25/152134 Author: Georgette Cardozo RPH Service: (none) Author Type: Pharmacist Filed: 10/25/152134 Date of Service: 10/25/152134 Status: Signed Bulk Sausage Casing Tier Off: Georgette Cardozo RPH (Pharmacist) Renal Dosing Monitoring: Ramona Reeves 35 y.o. female Pharmacy dosing for renal function per Dr. Chavez SCr 17, est. CrCl = 5 ml/min Plan per protocol: Medications dosed appropriately for current renal function. Pharmacy will continue monitoring patient for appropriate dosing per renal function. 10/25/2015 9:34 PM Pharmacist: Georgette Cardozo onver patric Transaction, Provider Unknown - 10/25/2015 5:57 PM PST Case Management by LUCILLE Cloud at 10/25/151756 Author: LUCILLE Cloud Service: (none) Author Type: Psychology Intern Filed: 10/25/151756 Date of Service: 10/25/151756 Status: Signed Bulk Sausage Casing Tier Off: LUCILLE Cloud (Psychology Intern) Discharge planning: CM spoke with pt's ED MD regarding discharge needs. 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 I encouraged a CM consult as needs arise. Pt is independent with good soci al support, will return to prior living situation. Saundra Pimentel docume nted in this encounter Plan of Treatment Not on filedocumented as of this encounter Procedures + +--------+ + + + | Procedure Name | Priori | Date/Time | Associated Diagnosis | Comments | | | ty | | | | + +--------+ + + + | EXTERNAL LAB: CBC | Routin | 10/31/2015 | | Results for this | | | e | 4:01 AM | | procedure are in the | | | | PST | | results section. | + +--------+ + + + | MAGNESIUM | Routin | 10/31/2015 | | Results for this | | | e | 4:01 AM | | procedure are in the | | | | PST | | results section. | + +--------+ + + + | RENAL FUNCTION PANEL | Routin | 10/31/2015 | | Results for this | | | e | 4:01 AM | | procedure are in the | | | | PST | | results section. | + +--------+ + + + | CULTURE, BODY FLUID, | Routin | 10/30/2015 | | Results for this | | STERILE, SMEAR, | e | 1:18 PM | | procedure are in the | | WITH ANAEROBES | | PST | | results section. | + +--------+ + + + | EXTERNAL LAB: | Timed | 10/30/2015 | | Results for this | | ALBUMIN | | 1:17 PM | | procedure are in the | | | | PST | | results section. | + +--------+ + + + | LACTATE | Timed | 10/30/2015 | | Results for this | | DEHYDROGENASE, BODY | | 1:17 PM | | procedure are in the | | FLUID | | PST | | results section. | + +--------+ + + + | CELL COUNT, BODY | Routin | 10/30/2015 | | Results for this | | FLUID | e | 1:17 PM | | procedure are in the | | | | PST | | results section. | + +--------+ + + + | GLUCOSE, BODY FLUID | Timed | 10/30/2015 | | Results for this | | | | 1:17 PM | | procedure are in the | | | | PST | | results section. | + +--------+ + + + | EXTERNAL LAB: CBC | Routin | 10/30/2015 | | Results for this | | | e | 4:10 AM | | procedure are in the | | | | PST | | results section. | + +--------+ + + + | MAGNESIUM | Routin | 10/30/2015 | | Results for this | | | e | 4:10 AM | | procedure are in the | | | | PST | | results section. | + +--------+ + + + | RENAL FUNCTION PANEL | Routin | 10/30/2015 | | Results for this | | | e | 4:10 AM | | procedure are in the | | | | PST | | results section. | + +--------+ + + + | XR CHEST 2 VIEWS | Routin | 10/29/2015 | | Results for this | | | e | 8:31 PM | | procedure are in the | | | | PST | | results section. | + +--------+ + + + | EXTERNAL LAB: CBC | Routin | 10/29/2015 | | Results for this | | | e | 4:52 AM | | procedure are in the | | | | PST | | results section. | + +--------+ + + + | PARATHYROID HORMONE, | Routin | 10/29/2015 | | Results for this | | INTACT AND CALCIUM | e | 4:52 AM | | procedure are in the | | | | PST | | results section. | + +--------+ + + + | MAGNESIUM | Routin | 10/29/2015 | | Results for this | | | e | 4:52 AM | | procedure are in the | | | | PST | | results section. | + +--------+ + + + | RENAL FUNCTION PANEL | Routin | 10/29/2015 | | Results for this | | | e | 4:52 AM | | procedure are in the | | | | PST | | results section. | + +--------+ + + + | EXTERNAL LAB: CBC | Routin | 10/28/2015 | | Results for this | | | e | 3:39 AM | | procedure are in the | | | | PST | | results section. | + +--------+ + + + | MAGNESIUM | Routin | 10/28/2015 | | Results for this | | | e | 3:39 AM | | procedure are in the | | | | PST | | results section. | + +--------+ + + + | RENAL FUNCTION PANEL | Routin | 10/28/2015 | | Results for this | | | e | 3:39 AM | | procedure are in the | | | | PST | | results section. | + +--------+ + + + | EXTERNAL LAB: CBC | Routin | 10/27/2015 | | Results for this | | | e | 5:46 AM | | procedure are in the | | | | PST | | results section. | + +--------+ + + + | TSH WITH REFLEX | Routin | 10/27/2015 | | Results for this | | | e | 5:46 AM | | procedure are in the | | | | PST | | results section. | + +--------+ + + + | VITAMIN B12+FOLATE | Routin | 10/27/2015 | | Results for this | | | e | 5:46 AM | | procedure are in the | | | | PST | | results section. | + +--------+ + + + | IRON AND IRON | Routin | 10/27/2015 | | Results for this | | BINDING CAPACITY | e | 5:46 AM | | procedure are in the | | | | PST | | results section. | + +--------+ + + + | MAGNESIUM | Routin | 10/27/2015 | | Results for this | | | e | 5:46 AM | | procedure are in the | | | | PST | | results section. | + +--------+ + + + | FERRITIN | Routin | 10/27/2015 | | Results for this | | | e | 5:46 AM | | procedure are in the | | | | PST | | results section. | + +--------+ + + + | CALCIUM, IONIZED | Routin | 10/27/2015 | | Results for this | | | e | 5:46 AM | | procedure are in the | | | | PST | | results section. | + +--------+ + + + | RENAL FUNCTION PANEL | Routin | 10/27/2015 | | Results for this | | | e | 5:46 AM | | procedure are in the | | | | PST | | results section. | + +--------+ + + + | URINALYSIS WITH | Routin | 10/27/2015 | | Results for this | | MICROSCOPIC IF | e | 5:37 AM | | procedure are in the | | INDICATED | | PST | | results section. | + +--------+ + + + | URINALYSIS, | Routin | 10/27/2015 | | Results for this | | MICROSCOPIC ONLY | e | 5:37 AM | | procedure are in the | | | | PST | | results section. | + +--------+ + + + | HEMOGLOBIN AND | Routin | 10/26/2015 | | Results for this | | HEMATOCRIT | e | 6:31 PM | | procedure are in the | | | | PST | | results section. | + +--------+ + + + | BASIC METABOLIC | Routin | 10/26/2015 | | Results for this | | PANEL | e | 6:31 PM | | procedure are in the | | | | PST | | results section. | + +--------+ + + + | SCABIES, | Timed | 10/26/2015 | | Results for this | | IDENTIFICATION | | 3:56 PM | | procedure are in the | | | | PST | | results section. | + +--------+ + + + | HEMOGLOBIN AND | Routin | 10/26/2015 | | Results for this | | HEMATOCRIT | e | 3:56 PM | | procedure are in the | | | | PST | | results section. | + +--------+ + + + | CT GUIDED BIOPSY | Routin | 10/26/2015 | | Results for this | | RENAL | e | 10:57 AM | | procedure are in the | | | | PST | | results section. | + +--------+ + + + | CULTURE, MRSA | Timed | 10/26/2015 | | Results for this | | | | 9:55 AM | | procedure are in the | | | | PST | | results section. | + +--------+ + + + | PTT | Routin | 10/26/2015 | | Results for this | | | e | 9:39 AM | | procedure are in the | | | | PST | | results section. | + +--------+ + + + | PROTIME INR | Routin | 10/26/2015 | | Results for this | | | e | 9:39 AM | | procedure are in the | | | | PST | | results section. | + +--------+ + + + | PLATELET COUNT | Routin | 10/26/2015 | | Results for this | | | e | 9:39 AM | | procedure are in the | | | | PST | | results section. | + +--------+ + + + | EXTERNAL LAB: CBC | Routin | 10/26/2015 | | Results for this | | | e | 5:26 AM | | procedure are in the | | | | PST | | results section. | + +--------+ + + + | RPR, QUANT (REF) | Routin | 10/26/2015 | | Results for this | | | e | 5:26 AM | | procedure are in the | | | | PST | | results section. | + +--------+ + + + | OBDULIO STORM | Routin | 10/26/2015 | | Results for this | | | e | 5:26 AM | | procedure are in the | | | | PST | | results section. | + +--------+ + + + | HIV 1 SCREEN, RAPID | Routin | 10/26/2015 | | Results for this | | | e | 5:26 AM | | procedure are in the | | | | PST | | results section. | + +--------+ + + + | LIPID PANEL | Routin | 10/26/2015 | | Results for this | | | e | 5:26 AM | | procedure are in the | | | | PST | | results section. | + +--------+ + + + | HEPATITIS A, B, C | Routin | 10/26/2015 | | Results for this | | PANEL, REFLEX | e | 5:26 AM | | procedure are in the | | | | PST | | results section. | + +--------+ + + + | C3 AND C4 | Routin | 10/26/2015 | | Results for this | | | e | 5:26 AM | | procedure are in the | | | | PST | | results section. | + +--------+ + + + | PROTEIN | Routin | 10/26/2015 | | Results for this | | ELECTROPHORESIS AND | e | 5:26 AM | | procedure are in the | | RAYMOND WITH FLC, SERUM | | PST | | results section. | + +--------+ + + + | QUANTIFERON GOLD | Routin | 10/26/2015 | | Results for this | | | e | 5:26 AM | | procedure are in the | | | | PST | | results section. | + +--------+ + + + | GLOMERULAR BASEMENT | Routin | 10/26/2015 | | Results for this | | MEMBRANE AB, IGG | e | 5:26 AM | | procedure are in the | | | | PST | | results section. | + +--------+ + + + | CRYOGLOBULIN | Routin | 10/26/2015 | | Results for this | | | e | 5:26 AM | | procedure are in the | | | | PST | | results section. | + +--------+ + + + | ANTISTREPTOLYSIN O, | Routin | 10/26/2015 | | Results for this | | QUANT | e | 5:26 AM | | procedure are in the | | | | PST | | results section. | + +--------+ + + + | PTT | Routin | 10/26/2015 | | Results for this | | | e | 5:26 AM | | procedure are in the | | | | PST | | results section. | + +--------+ + + + | SEDIMENTATION RATE, | Routin | 10/26/2015 | | Results for this | | AUTOMATED | e | 5:26 AM | | procedure are in the | | | | PST | | results section. | + +--------+ + + + | PROTIME INR | Routin | 10/26/2015 | | Results for this | | | e | 5:26 AM | | procedure are in the | | | | PST | | results section. | + +--------+ + + + | HEMOGLOBIN A1C | Routin | 10/26/2015 | | Results for this | | | e | 5:26 AM | | procedure are in the | | | | PST | | results section. | + +--------+ + + + | CK TOTAL | Routin | 10/26/2015 | | Results for this | | | e | 5:26 AM | | procedure are in the | | | | PST | | results section. | + +--------+ + + + | BASIC METABOLIC | Routin | 10/26/2015 | | Results for this | | PANEL | e | 5:26 AM | | procedure are in the | | | | PST | | results section. | + +--------+ + + + | UREA NITROGEN, | Routin | 10/26/2015 | | Results for this | | URINE, RANDOM | e | 2:33 AM | | procedure are in the | | | | PST | | results section. | + +--------+ + + + | EOSINOPHIL SMEAR, | Routin | 10/26/2015 | | Results for this | | URINE | e | 2:33 AM | | procedure are in the | | | | PST | | results section. | + +--------+ + + + | SODIUM, URINE, | Routin | 10/26/2015 | | Results for this | | RANDOM | e | 2:33 AM | | procedure are in the | | | | PST | | results section. | + +--------+ + + + | MYOGLOBIN, URINE | Routin | 10/26/2015 | | Results for this | | | e | 2:33 AM | | procedure are in the | | | | PST | | results section. | + +--------+ + + + | MYOGLOBIN, URINE | Routin | 10/26/2015 | | Results for this | | | e | 2:33 AM | | procedure are in the | | | | PST | | results section. | + +--------+ + + + | CREATININE, URINE, | Routin | 10/26/2015 | | Results for this | | RANDOM | e | 2:33 AM | | procedure are in the | | | | PST | | results section. | + +--------+ + + + | TISSUE REQUEST FOR | Routin | 10/26/2015 | | Results for this | | PATHOLOGY (NON-ORD) | e | 12:00 AM | | procedure are in the | | | | PST | | results section. | + +--------+ + + + | US RENAL LIMITED | Routin | 10/25/2015 | | Results for this | | | e | 6:17 PM | | procedure are in the | | | | PST | | results section. | + +--------+ + + + | CULTURE, BLOOD, 2ND | STAT | 10/25/2015 | | Results for this | | SPECIMEN (NON-ORD) | | 4:58 PM | | procedure are in the | | | | PST | | results section. | + +--------+ + + + | CULTURE, BLOOD | STAT | 10/25/2015 | | Results for this | | | | 4:38 PM | | procedure are in the | | | | PST | | results section. | + +--------+ + + + | EXTERNAL LAB: CBC | Routin | 10/25/2015 | | Results for this | | | e | 2:15 PM | | procedure are in the | | | | PST | | results section. | + +--------+ + + + | PTT | Routin | 10/25/2015 | | Results for this | | | e | 2:15 PM | | procedure are in the | | | | PST | | results section. | + +--------+ + + + | PROTIME INR | Routin | 10/25/2015 | | Results for this | | | e | 2:15 PM | | procedure are in the | | | | PST | | results section. | + +--------+ + + + | TYPE AND SCREEN | Routin | 10/25/2015 | | Results for this | | | e | 2:15 PM | | procedure are in the | | | | PST | | results section. | + +--------+ + + + | COMPREHENSIVE | Routin | 10/25/2015 | | Results for this | | METABOLIC PANEL | e | 2:15 PM | | procedure are in the | | | | PST | | results section. | + +--------+ + + + | URINALYSIS, REFLEX | Routin | 10/25/2015 | | Results for this | | MICROSCOPIC AND/OR | e | 1:30 PM | | procedure are in the | | CULTURE | | PST | | results section. | + +--------+ + + + | CULTURE, URINE | Routin | 10/25/2015 | | Results for this | | | e | 1:30 PM | | procedure are in the | | | | PST | | results section. | + +--------+ + + + documented in this encounter Results External Lab: [facility] (10/31/2015 4:01 AM PST) + + + + + + | Component | Value | Ref Range | Performed | Pathologist | | | | | At | Signature | + + + + + + | WBC | 8.97Comment: Testing | 3.80 - 11.00 | EXTERNAL | | | | performed at [facility], [address] | K/uL | LAB | | | | [address], | | | | | | [place] [address] | | | | + + + + + + | Red Blood | 2.89 (L)Comment: Testing | 3.70 - 5.10 | EXTERNAL | | | Cells | performed at [facility], [address] | M/uL | LAB | | | Counted | [address], | | | | | | [place] [address] | | | | + + + + + + | Hemoglobin | 7.9 (L)Comment: Testing | 11.3 - 15.5 | EXTERNAL | | | | performed at [facility], [address] | g/dL | LAB | | | | [address], | | | | | | [place] [address] | | | | + + + + + + | Hematocrit, | 24.2 (L)Comment: Testing | 34.0 - 46.0 % | EXTERNAL | | | POC | performed at [facility], [address] | | LAB | | | | [address], | | | | | | [place] [address] | | | | + + + + + + | MCV | 83.9Comment: Testing | 80.0 - 100.0 fl | EXTERNAL | | | | performed at [facility], [address] | | LAB | | | | [address], | | | | | | [place] [address] | | | | + + + + + + | MCH | 27.2Comment: Testing | 27.0 - 34.0 pg | EXTERNAL | | | | performed at [facility], [address] | | LAB | | | | [address], | | | | | | [place] [address] | | | | + + + + + + | MCHC | 32.5Comment: Testing | 32.0 - 35.5 | EXTERNAL | | | | performed at [facility], [address] | g/dL | LAB | | | | [address], | | | | | | [place] [address] | | | | + + + + + + | RDW-CV | 48.1Comment: Testing | 37 - 53 fl | EXTERNAL | | | | performed at [facility], [address] | | LAB | | | | [address], | | | | | | [place] [address] | | | | + + + + + + | Platelet | 226Comment: Testing | 150 - 400 K/uL | EXTERNAL | | | Count | performed at [facility], [address] | | LAB | | | Plasma | [address], | | | | | | [place] [address] | | | | + + + + + + | MPV | 9.3Comment: Testing | fl | EXTERNAL | | | | performed at [facility], [address] | | LAB | | | | [address], | | | | | | [place] [address] | | | | + + + + + + | Differentia | AUTOMATEDComment: | | EXTERNAL | | | l Type | Testing performed at | | LAB | | | | [facility], [address] | | | | | | [place] | | | | | | [address] | | | | + + + + + + | % Segmented | 67.15Comment: Testing | % | EXTERNAL | | | | performed at [facility], [address] | | LAB | | | Neutrophils | [address], | | | | | | [place] [address] | | | | + + + + + + | % | 8.38Comment: Testing | % | EXTERNAL | | | Lymphocytes | performed at [facility], [address] | | LAB | | | | [address], | | | | | | [place], [place] [address] | | | | + + + + + + | % Monocytes | 5.32Comment: Testing | % | EXTERNAL | | | | performed at [facility], [address] | | LAB | | | | [address], | | | | | | [place] [address] | | | | + + + + + + | % | 18.83Comment: Testing | % | EXTERNAL | | | Eosinophils | performed at [facility], [address] | | LAB | | | | [address], | | | | | | [place] [address] | | | | + + + + + + | % Basophils | 0.32Comment: Testing | % | EXTERNAL | | | | performed at [facility], [address] | | LAB | | | | [address], | | | | | | [place] [address] | | | | + + + + + + | Absolute | 6.03Comment: Testing | 1.90 - 7.40 | EXTERNAL | | | Segmented | performed at [facility], [address] | K/uL | LAB | | | Neutrophils | [address], | | | | | | [place] [address] | | | | + + + + + + | Absolute | 0.75 (L)Comment: Testing | 1.00 - 3.90 | EXTERNAL | | | Lymphocytes | performed at [facility], [address] | K/uL | LAB | | | | [address], | | | | | | [place] [address] | | | | + + + + + + | Absolute | 0.48Comment: Testing | 0.00 - 0.80 | EXTERNAL | | | Monocytes | performed at [facility], [address] | K/uL | LAB | | | | [address], | | | | | | [place] [address] | | | | + + + + + + | Absolute | 1.69 (H)Comment: Testing | 0.00 - 0.50 | EXTERNAL | | | Eosinophils | performed at [facility], [address] | K/uL | LAB | | | | [address], | | | | | | [place] [address] | | | | + + + + + + | Absolute | 0.03Comment: Testing | 0.00 - 0.10 | EXTERNAL | | | Basophils | performed at [facility], [address] | K/uL | LAB | | | | [address], | | | | | | [place] [address] | | | | + + + + + + + + | Specimen | + + | Blood specimen | | (specimen) | + + + +---------+ + + | Performing | Address | City/State/Zipcode | Phone Number | | Organization | | | | + +---------+ + + | EXTERNAL LAB | | | | + +---------+ + + Magnesium (10/31/2015 4:01 AM PST) + + + + + + | Component | Value | Ref Range | Performed | Pathologist | | | | | At | Signature | + + + + + + | Magnesium | 2.4Comment: Testing | 1.7 - 2.4 mg/dL | EXTERNAL | | | | performed at [facility], [address] | | LAB | | | | [address], | | | | | | [place] [address] | | | | + + + [...] + +---------+ + + Renal Function Panel (10/31/2015 4:01 AM PST) + + + + + + | Component | Value | Ref Range | Performed | Pathologist | | | | | At | Signature | + + + + + + | Na | 136Comment: Testing | 135 - 143 | EXTERNAL | | | | performed at [facility], [address] | mmol/L | LAB | | | | [address], | | | | | | [place] [address] | | | | + + + + + + | K | 3.8Comment: Testing | 3.5 - 4.9 | EXTERNAL | | | | performed at [facility], [address] | mmol/L | LAB | | | | [address], | | | | | | [place] [address] | | | | + + + + + + | Cl | 98 (L)Comment: Testing | 99 - 109 mmol/L | EXTERNAL | | | | performed at [facility], [address] | | LAB | | | | [address], | | | | | | [place] [address] | | | | + + + + + + | CO2 | 23Comment: Testing | 23 - 32 mmol/L | EXTERNAL | | | | performed at [facility], [address] | | LAB | | | | [address], | | | | | | [place] [address] | | | | + + + + + + | Anion Gap | 19Comment: Testing | 5 - 20 mmol/L | EXTERNAL | | | | performed at [facility], [address] | | LAB | | | | [address], | | | | | | [place] [address] | | | | + + + + + + | Glucose, | 79Comment: Testing | 65 - 99 mg/dL | EXTERNAL | | | Fasting | performed at [facility], [address] | | LAB | | | | [address], | | | | | | [place] [address] | | | | + + + + + + | BUN | 97 (H)Comment: Testing | 8 - 25 mg/dL | EXTERNAL | | | | performed at [facility], [address] | | LAB | | | | [address], | | | | | | [place] [address] | | | | + + + + + + | Creatinine | 14.12 (H)Comment: | 0.50 - 1.00 | EXTERNAL | | | | Testing performed at | mg/dL | LAB | | | | [facility], [address] | | | | | | [place] | | | | | | [address] | | | | + + + + + + | Calcium | 7.2 (L)Comment: Testing | 8.5 - 10.5 | EXTERNAL | | | | performed at [facility], [address] | mg/dL | LAB | | | | [address], | | | | | | [place] [address] | | | | + + + + + + | Albumin | 2.9 (L)Comment: Testing | 3.6 - 5.0 g/dL | EXTERNAL | | | | performed at [facility], [address] | | LAB | | | | [address], | | | | | | [place] [address] | | | | + + + + + + | PHOSPHORUS | 8.6 (H)Comment: Testing | 2.3 - 4.8 mg/dL | EXTERNAL | | | | performed at [facility], [address] | | LAB | | | | [address] [facility], | | | | | | [place] [address] | | | | + + + [...] | | | | | | [address] [facility], | | | | | | [place] [address] | | | | + + + + + + + + | Specimen | + + | | + + + +---------+ + + | Performing | Address | City/State/Zipcode | Phone Number | | Organization | | | | + +---------+ + + | EXTERNAL LAB | | | | + +---------+ + + Culture, Body Fluid, Sterile, Smear, with Anaerobes (10/30/2015 1:18 PM PST) + + | Specimen | + + | Body fluid sample | | (specimen) | + + + + + | Narrative | Performed At | + + + | Specimen Description PERITONEAL FLUID GRAM | EXTERNAL LAB | | STAIN NO CELLS OR ORGANISMS SEEN | | | CULTURE NO GROWTH 4 DAYS | | | Testing performed at | | | [facility], [address] [place] [address] | | + + + + +---------+ + + | Performing | Address | City/State/Zipcode | Phone Number | | Organization | | | | + +---------+ + + | EXTERNAL LAB | | | | + +---------+ + + Cell Count, Body Fluid (10/30/2015 1:17 PM PST) + + | Specimen | + + | | + + + + + | Narrative | Performed At | + + + | FLUID TYPE PERITONEAL FLUID | EXTERNAL LAB | | Testing performed at [facility] [address] [address] COLOR | | | COLORLESS Testing performed | | | at [facility] [address];[place] [address] APPEARANCE | | | CLEAR Testing performed at [facility] [address] | | | [address];[place] [address] RBC'S | | | <[id number] Testing performed at [facility] [address];[place], [place] | | | [address] TOTAL NUCLEATED CELLS 145 | | | Testing performed at [facility] [address];[place] [address] NEUTROPHILS | | | 16 Testing performed | | | at [facility] [address];[place] [address] LYMPHOCYTES | | | 4 Testing performed at [facility] [address] | | | [address];[place] [address] MONOCYTES/MACROPHAGES 18 | | | Testing performed at [facility] [address];[place] [address] | | | EOSINOPHILS 62 | | | Testing performed at [facility] [address];[place] [address] CELLS | | | COUNTED 100 Testing | | | performed at [facility];[address] [place] [address];[place] [address] | | + + + + +---------+ + + | Performing | Address | City/State/Zipcode | Phone Number | | Organization | | | | + +---------+ + + | EXTERNAL LAB | | | | + +---------+ + + Lactate Dehydrogenase, Body Fluid (10/30/2015 1:17 PM PST) + + | Specimen | + + | Body fluid sample | | (specimen) | + + + + + | Narrative | Performed At | + + + | FLUID LDH <25 THIS | EXTERNAL LAB | | IS NOT A GLASS [employer]ER VALIDATED SAMPLE TYPE FOR THIS METHOD. NO | | | REFERENCE RANGES HAVE BEEN ESTABLISHED. RESULT VERIFIED Testing | | | performed at [facility], [address] [place] [address] | | + + + + +---------+ + + | Performing | Address | City/State/Zipcode | Phone Number | | Organization | | | | + +---------+ + + | EXTERNAL LAB | | | | + +---------+ + + Glucose, Body Fluid (10/30/2015 1:17 PM PST) + + | Specimen | + + | Body fluid sample | | (specimen) | + + + + + | Narrative | Performed At | + + + | FLUID GLUCOSE 1011 THIS IS | EXTERNAL LAB | | NOT A GLASS POL[employer]ER VALIDATED SAMPLE TYPE FOR THIS METHOD. NO | | | REFERENCE RANGES HAVE BEEN ESTABLISHED. RESULT VERIFIED Testing | | | performed at [facility], [address] [facility], [place] [address] | | | Glucose, Fluid Type PERITONEAL FLUID Testing | | | performed at [facility];[address] [facility];[place] [address] | | + + + + +---------+ + + | Performing | Address | City/State/Zipcode | Phone Number | | Organization | | | | + +---------+ + + | EXTERNAL LAB | | | | + +---------+ + + External Lab: Albumin (10/30/2015 1:17 PM PST) + + | Specimen | + + | Body fluid sample | | (specimen) | + + + + + | Narrative | Performed At | + + + | FLUID ALBUMIN <1.5 THIS IS | EXTERNAL LAB | | NOT A GLASS POL[employer]ER VALIDATED SAMPLE TYPE FOR THIS METHOD. NO | | | REFERENCE RANGES HAVE BEEN ESTABLISHED. RESULT VERIFIED Testing | | | performed at [facility], [address] [place] [address] | | + + + + +---------+ + + | Performing | Address | City/State/Zipcode | Phone Number | | Organization | | | | + +---------+ + + | EXTERNAL LAB | | | | + +---------+ + + External Lab: CBC (10/30/2015 4:10 AM PST) + + + + + + | Component | Value | Ref Range | Performed | Pathologist | | | | | At | Signature | + + + + + + | WBC | 10.51Comment: Testing | 3.80 - 11.00 | EXTERNAL | | | | performed at [facility], [address] | K/uL | LAB | | | | [address], | | | | | | [place] [address] | | | | + + + + + + | Red Blood | 2.84 (L)Comment: Testing | 3.70 - 5.10 | EXTERNAL | | | Cells | performed at [facility], [address] | M/uL | LAB | | | Counted | [address], | | | | | | [place] [address] | | | | + + + + + + | Hemoglobin | 7.7 (L)Comment: Testing | 11.3 - 15.5 | EXTERNAL | | | | performed at [facility], [address] | g/dL | LAB | | | | [address], | | | | | | [place] [address] | | | | + + + + + + | Hematocrit, | 24.0 (L)Comment: Testing | 34.0 - 46.0 % | EXTERNAL | | | POC | performed at [facility], [address] | | LAB | | | | [address], | | | | | | [place] [address] | | | | + + + + + + | MCV | 84.3Comment: Testing | 80.0 - 100.0 fl | EXTERNAL | | | | performed at [facility], [address] | | LAB | | | | [address], | | | | | | [place] [address] | | | | + + + + + + | MCH | 26.9 (L)Comment: Testing | 27.0 - 34.0 pg | EXTERNAL | | | | performed at [facility], [address] | | LAB | | | | [address], | | | | | | [place] [address] | | | | + + + + + + | MCHC | 32.0Comment: Testing | 32.0 - 35.5 | EXTERNAL | | | | performed at [facility], [address] | g/dL | LAB | | | | [address], | | | | | | [place] [address] | | | | + + + + + + | RDW-CV | 45.9Comment: Testing | 37 - 53 fl | EXTERNAL | | | | performed at [facility], [address] | | LAB | | | | [address], | | | | | | [place] [address] | | | | + + + + + + | Platelet | 210Comment: Testing | 150 - 400 K/uL | EXTERNAL | | | Count | performed at [facility], [address] | | LAB | | | Plasma | [address], | | | | | | [place] [address] | | | | + + + + + + | MPV | 9.4Comment: Testing | fl | EXTERNAL | | | | performed at [facility], [address] | | LAB | | | | [address], | | | | | | [place] [address] | | | | + + + + + + | Differentia | AUTOMATEDComment: | | EXTERNAL | | | l Type | Testing performed at | | LAB | | | | [facility], [address] | | | | | | [place] | | | | | | [address] | | | | + + + + + + | % Segmented | 72.16Comment: Testing | % | EXTERNAL | | | | performed at [facility], [address] | | LAB | | | Neutrophils | [address], | | | | | | [place] [address] | | | | + + + + + + | % | 8.40Comment: Testing | % | EXTERNAL | | | Lymphocytes | performed at [facility], [address] | | LAB | | | | [address], | | | | | | [place] [address] | | | | + + + + + + | % Monocytes | 4.74Comment: Testing | % | EXTERNAL | | | | performed at [facility], [address] | | LAB | | | | [address], | | | | | | [place] [address] | | | | + + + + + + | % | 14.32Comment: Testing | % | EXTERNAL | | | Eosinophils | performed at [facility], [address] | | LAB | | | | [address], | | | | | | [place] [address] | | | | + + + + + + | % Basophils | 0.38Comment: Testing | % | EXTERNAL | | | | performed at [facility], [address] | | LAB | | | | [address], | | | | | | [place] [address] | | | | + + + + + + | Absolute | 7.58 (H)Comment: Testing | 1.90 - 7.40 | EXTERNAL | | | Segmented | performed at [facility], [address] | K/uL | LAB | | | Neutrophils | [address], | | | | | | [place] [address] | | | | + + + + + + | Absolute | 0.88 (L)Comment: Testing | 1.00 - 3.90 | EXTERNAL | | | Lymphocytes | performed at [facility], [address] | K/uL | LAB | | | | [address], | | | | | | [place] [address] | | | | + + + + + + | Absolute | 0.50Comment: Testing | 0.00 - 0.80 | EXTERNAL | | | Monocytes | performed at [facility], [address] | K/uL | LAB | | | | [address], | | | | | | [place] [address] | | | | + + + + + + | Absolute | 1.51 (H)Comment: Testing | 0.00 - 0.50 | EXTERNAL | | | Eosinophils | performed at [facility], [address] | K/uL | LAB | | | | [address], | | | | | | [place] [address] | | | | + + + + + + | Absolute | 0.04Comment: Testing | 0.00 - 0.10 | EXTERNAL | | | Basophils | performed at [facility], [address] | K/uL | LAB | | | | [address], | | | | | | [place] [address] | | | | + + + + + + + + | Specimen | + + | Blood specimen | | (specimen) | + + + +---------+ + + | Performing | Address | City/State/Zipcode | Phone Number | | Organization | | | | + +---------+ + + | EXTERNAL LAB | | | | + +---------+ + + Magnesium (10/30/2015 4:10 AM PST) + + + + + + | Component | Value | Ref Range | Performed | Pathologist | | | | | At | Signature | + + + + + + | Magnesium | 2.3Comment: Testing | 1.7 - 2.4 mg/dL | EXTERNAL | | | | performed at [facility], [address] | | LAB | | | | [address] [facility], | | | | | | [place] [address] | | | | + + + [...] + +---------+ + + Renal Function Panel (10/30/2015 4:10 AM PST) + + + + + + | Component | Value | Ref Range | Performed | Pathologist | | | | | At | Signature | + + + + + + | Na | 139Comment: Testing | 135 - 143 | EXTERNAL | | | | performed at [facility], [address] | mmol/L | LAB | | | | [address], | | | | | | [place] [address] | | | | + + + + + + | K | 3.7Comment: Testing | 3.5 - 4.9 | EXTERNAL | | | | performed at [facility], [address] | mmol/L | LAB | | | | [address], | | | | | | [place] [address] | | | | + + + + + + | Cl | 99Comment: Testing | 99 - 109 mmol/L | EXTERNAL | | | | performed at [facility], [address] | | LAB | | | | [address], | | | | | | [place] [address] | | | | + + + + + + | CO2 | 24Comment: Testing | 23 - 32 mmol/L | EXTERNAL | | | | performed at [facility], [address] | | LAB | | | | [address], | | | | | | [place] [address] | | | | + + + + + + | Anion Gap | 20Comment: Testing | 5 - 20 mmol/L | EXTERNAL | | | | performed at [facility], [address] | | LAB | | | | [address], | | | | | | [place] [address] | | | | + + + + + + | Glucose, | 84Comment: Testing | 65 - 99 mg/dL | EXTERNAL | | | Fasting | performed at [facility], [address] | | LAB | | | | [address], | | | | | | [place] [address] | | | | + + + + + + | BUN | 104 (H)Comment: Testing | 8 - 25 mg/dL | EXTERNAL | | | | performed at [facility], [address] | | LAB | | | | [address], | | | | | | [place] [address] | | | | + + + + + + | Creatinine | 14.91 (H)Comment: | 0.50 - 1.00 | EXTERNAL | | | | Testing performed at | mg/dL | LAB | | | | [facility], [address] | | | | | | [place] | | | | | | [address] | | | | + + + + + + | Calcium | 6.5 (L)Comment: Testing | 8.5 - 10.5 | EXTERNAL | | | | performed at [facility], [address] | mg/dL | LAB | | | | [address], | | | | | | [place] [address] | | | | + + + + + + | Albumin | 2.9 (L)Comment: Testing | 3.6 - 5.0 g/dL | EXTERNAL | | | | performed at [facility], [address] | | LAB | | | | [address], | | | | | | [place] [address] | | | | + + + + + + | PHOSPHORUS | 9.4 (HH)Comment: RESULT | 2.3 - 4.8 mg/dL | EXTERNAL | | | | READ BACK BY: AMARILIS Baca | | LAB | | | | MARY 5:25 10/30/15 | | | | | | DHTesting performed at | | | | | | [facility], [address] | | | | | | [place] | | | | | | [address] | | | | + + + [...] [place], | | | | | | [place] [address] | | | | + + + + + + + + | Specimen | + + | | + + + +---------+ + + | Performing | Address | City/State/Zipcode | Phone Number | | Organization | | | | + +---------+ + + | EXTERNAL LAB | | | | + +---------+ + + XR Chest 2 Vws (10/29/2015 8:31 PM PST) + + | Specimen | + + | | + + + + + | Impressions | Performed At | + + + | 1. Free intraperitoneal air beneath the diaphragms which may be | | | due to recent peritoneal dialysis catheter placement. Bowel | | | perforation cannot be completely excluded. Correlate with the | | | procedure and clinical findings. | | + + + + + + | Narrative | Performed At | + + + | [facility] XR CHEST 2 VIEW FRONTAL AND LATERAL | | | HISTORY: 35 years. Female. Shortness breath TECHNIQUE: Frontal | | | and lateral views of the chest were obtained. COMPARISON: None. | | | FINDINGS: The heart is borderline enlarged. No pulmonary vascular | | | congestion. No pneumothorax. No focal airspace disease or pleural | | | effusion. Free intraperitoneal air beneath the diaphragms. | | + + + + + | Procedure Note | + + | Endy, Rad Conversion - 06/25/2019 11:42 AM PDT RAM[facility] REEVESXR CHEST 2 VIEW | | FRONTAL AND LATERAL HISTORY:35 years. Female. Shortness breath TECHNIQUE:Frontal and | | lateral views of the chest were obtained. COMPARISON:None. FINDINGS:The heart is | | borderline enlarged. No pulmonary vascular congestion. No pneumothorax. No focal | | airspace disease or pleural effusion. Free intraperitoneal air beneath the diaphragms. | | IMPRESSION: 1. Free intraperitoneal air beneath the diaphragms which may be due to | | recent peritoneal dialysis catheter placement. Bowel perforation cannot be completely | | excluded. Correlate with the procedure and clinical findings. | |COMPARISON: | |None. | | | |FINDINGS: | |The heart is borderline enlarged. No pulmonary vascular congestion. No pneumothorax. No foc al airspace disease or pleural effusion. Free intraperitoneal air beneath the diaphragms. | | | |IMPRESSION: | |1. Free intraperitoneal air beneath the diaphragms which may be due to recent peritoneal d ialysis catheter placement. Bowel perforation cannot be completely excluded. Correlate with the procedure and clinical findings. | | | | | + + Parathyroid Hormone, Intact and Calcium (10/29/2015 4:52 AM PST) + + + + + + | Component | Value | Ref Range | Performed | Pathologist | | | | | At | Signature | + + + + + + | Calcium | 6.1 (L)Comment: Testing | 8.5 - 10.5 | EXTERNAL | | | | performed at [facility], [address] | mg/dL | LAB | | | | [address], | | | | | | [place] [address] | | | | + + + + + + | PTH Intact | 482.8Comment: Nomogram | pg/mL | EXTERNAL | | | | suggests Secondary | | LAB | | | | Hyperparathyroidism: | | | | | | Rickets, Osteomalacia, | | | | | | Chronic Renal Failure, | | | | | | Fanconi Syndrome, Renal | | | | | | Tubular Acidosis, | | | | | | Vitamin D deficiency | | | | | | secondary to | | | | | | Malabsorption, Renal | | | | | | Failure or Pseudo | | | | | | Hyperparathyroidism.Diag | | | | | | nosis of parathyroid | | | | | | disease requires both | | | | | | clinical and laboratory | | | | | | data.Testing performed | | | | | | at [facility], [address] | | | | | | [address], | | | | | | [place] [address] | | | | + + + [...] + +---------+ + + External Lab: CBC (10/29/2015 4:52 AM PST) + + + + + + | Component | Value | Ref Range | Performed | Pathologist | | | | | At | Signature | + + + + + + | WBC | 7.89Comment: Testing | 3.80 - 11.00 | EXTERNAL | | | | performed at [facility], [address] | K/uL | LAB | | | | [address], | | | | | | [place] [address] | | | | + + + + + + | Red Blood | 2.60 (L)Comment: Testing | 3.70 - 5.10 | EXTERNAL | | | Cells | performed at [facility], [address] | M/uL | LAB | | | Counted | [address], | | | | | | [place] [address] | | | | + + + + + + | Hemoglobin | 7.1 (L)Comment: Testing | 11.3 - 15.5 | EXTERNAL | | | | performed at [facility], [address] | g/dL | LAB | | | | [address], | | | | | | [place] [address] | | | | + + + + + + | Hematocrit, | 21.6 (L)Comment: Testing | 34.0 - 46.0 % | EXTERNAL | | | POC | performed at [facility], [address] | | LAB | | | | [address], | | | | | | [place] [address] | | | | + + + + + + | MCV | 82.9Comment: Testing | 80.0 - 100.0 fl | EXTERNAL | | | | performed at [facility], [address] | | LAB | | | | [address], | | | | | | [place] [address] | | | | + + + + + + | MCH | 27.2Comment: Testing | 27.0 - 34.0 pg | EXTERNAL | | | | performed at [facility], [address] | | LAB | | | | [address], | | | | | | [place] [address] | | | | + + + + + + | MCHC | 32.8Comment: Testing | 32.0 - 35.5 | EXTERNAL | | | | performed at [facility], [address] | g/dL | LAB | | | | [address], | | | | | | [place] [address] | | | | + + + + + + | RDW-CV | 46.8Comment: Testing | 37 - 53 fl | EXTERNAL | | | | performed at [facility], [address] | | LAB | | | | [address], | | | | | | [place] [address] | | | | + + + + + + | Platelet | 179Comment: Testing | 150 - 400 K/uL | EXTERNAL | | | Count | performed at [facility], [address] | | LAB | | | Plasma | [address], | | | | | | [place] [address] | | | | + + + + + + | MPV | 9.8Comment: Testing | fl | EXTERNAL | | | | performed at [facility], [address] | | LAB | | | | [address], | | | | | | [place] [address] | | | | + + + + + + | Differentia | MANUALComment: Testing | | EXTERNAL | | | l Type | performed at [facility], [address] | | LAB | | | | [address], | | | | | | [place] [address] | | | | + + + + + + | Segmented | 87Comment: Testing | % | EXTERNAL | | | Neutrophils | performed at [facility], [address] | | LAB | | | Manual | [address], | | | | | | [place] [address] | | | | + + + + + + | Lymphocytes | 6Comment: Testing | % | EXTERNAL | | | Manual | performed at [facility], [address] | | LAB | | | | [address], | | | | | | [place] [address] | | | | + + + + + + | Monocytes | 5Comment: Testing | % | EXTERNAL | | | Manual | performed at [facility], [address] | | LAB | | | | [address], | | | | | | [place] [address] | | | | + + + + + + | Eosinophils | 2Comment: Testing | % | EXTERNAL | | | Manual | performed at [facility], [address] | | LAB | | | | [address], | | | | | | [place] [address] | | | | + + + + + + | Absolute | 6.87Comment: Testing | 1.90 - 7.40 | EXTERNAL | | | Neutrophils | performed at [facility], [address] | K/uL | LAB | | | [address], | | | | | | [place] [address] | | | | + + + + + + | Absolute | 0.47 (L)Comment: Testing | 1.00 - 3.90 | EXTERNAL | | | Lymphocytes | performed at [facility], [address] | K/uL | LAB | | | | [address], | | | | | | [place] [address] | | | | + + + + + + | Absolute | 0.39Comment: Testing | 0.00 - 0.80 | EXTERNAL | | | Monocytes | performed at [facility], [address] | K/uL | LAB | | | | [address], | | | | | | [place] [address] | | | | + + + + + + | Absolute | 0.16Comment: Testing | 0.00 - 0.50 | EXTERNAL | | | Eosinophils | performed at [facility], [address] | K/uL | LAB | | | | [address], | | | | | | [place] [address] | | | | + + + + + + | RBC | RBC AND PLT MORPHOLOGY | | EXTERNAL | | | Morphology | APPEAR NORMALComment: | | LAB | | | | Testing performed at | | | | | | [facility], [address] | | | | | | [place], [place] | | | | | | [address] | | | | + + + + + + + + | Specimen | + + | Blood specimen | | (specimen) | + + + +---------+ + + | Performing | Address | City/State/Zipcode | Phone Number | | Organization | | | | + +---------+ + + | EXTERNAL LAB | | | | + +---------+ + + Magnesium (10/29/2015 4:52 AM PST) + + + + + [...] | | | | | [place] [address] | | | | + + + [...] + +---------+ + + Renal Function Panel (10/29/2015 4:52 AM PST) + + + + + + | Component | Value | Ref Range | Performed | Pathologist | | | | | At | Signature | + + + + + + | Na | 138Comment: Testing | 135 - 143 | EXTERNAL | | | | performed at [facility], [address] | mmol/L | LAB | | | | [address], | | | | | | [place] [address] | | | | + + + + + + | K | 4.1Comment: Testing | 3.5 - 4.9 | EXTERNAL | | | | performed at [facility], [address] | mmol/L | LAB | | | | [address], | | | | | | [place] [address] | | | | + + + + + + | Cl | 99Comment: Testing | 99 - 109 mmol/L | EXTERNAL | | | | performed at [facility], [address] | | LAB | | | | [address], | | | | | | [place] [address] | | | | + + + + + + | CO2 | 23Comment: Testing | 23 - 32 mmol/L | EXTERNAL | | | | performed at [facility], [address] | | LAB | | | | [address], | | | | | | [place] [address] | | | | + + + + + + | Anion Gap | 20Comment: Testing | 5 - 20 mmol/L | EXTERNAL | | | | performed at [facility], [address] | | LAB | | | | [address], | | | | | | [place] [address] | | | | + + + + + + | Glucose, | 102 (H)Comment: Testing | 65 - 99 mg/dL | EXTERNAL | | | Fasting | performed at [facility], [address] | | LAB | | | | [address], | | | | | | [place] [address] | | | | + + + + + + | BUN | 106 (H)Comment: Testing | 8 - 25 mg/dL | EXTERNAL | | | | performed at [facility], [address] | | LAB | | | | [address], | | | | | | [place] [address] | | | | + + + + + + | Creatinine | 15.51 (H)Comment: | 0.50 - 1.00 | EXTERNAL | | | | Testing performed at | mg/dL | LAB | | | | [facility], [address] | | | | | | [place] | | | | | | [address] | | | | + + + + + + | Calcium | 6.9 (L)Comment: Testing | 8.5 - 10.5 | EXTERNAL | | | | performed at [facility], [address] | mg/dL | LAB | | | | [address], | | | | | | [place] [address] | | | | + + + + + + | Albumin | 3.0 (L)Comment: Testing | 3.6 - 5.0 g/dL | EXTERNAL | | | | performed at [facility], [address] | | LAB | | | [address], | | | | | | [place] [address] | | | | + + + + + + | PHOSPHORUS | 9.9 (HH)Comment: RESULT | 2.3 - 4.8 mg/dL | EXTERNAL | | | | READ BACK BY:CHRISTINA | | LAB | | | | P/RN/OCT 29, | | | | | | :20C/CMSTesting | | | | | | performed at [facility], [address] | | | | | | [facility] [employer], | | | | | | [place] [address] | | | | + + + [...] | | | | | | at [facility], [address] | | | | | | [address], | | | | | | [place] [address] | | | | + + + + + + + + | Specimen | + + | | + + + +---------+ + + | Performing | Address | City/State/Zipcode | Phone Number | | Organization | | | | + +---------+ + + | EXTERNAL LAB | | | | + +---------+ + + External Lab: CBC (10/28/2015 3:39 AM PST) + + + + + + | Component | Value | Ref Range | Performed | Pathologist | | | | | At | Signature | + + + + + + | WBC | 8.98Comment: Testing | 3.80 - 11.00 | EXTERNAL | | | | performed at [facility], [address] | K/uL | LAB | | | | [address], | | | | | | [place] [address] | | | | + + + + + + | Red Blood | 2.72 (L)Comment: Testing | 3.70 - 5.10 | EXTERNAL | | | Cells | performed at [facility], [address] | M/uL | LAB | | | Counted | [address] [place], | | | | | | [place] [address] | | | | + + + + + + | Hemoglobin | 7.3 (L)Comment: Testing | 11.3 - 15.5 | EXTERNAL | | | | performed at [facility], [address] | g/dL | LAB | | | | [address], | | | | | | [place] [address] | | | | + + + + + + | Hematocrit, | 22.9 (L)Comment: Testing | 34.0 - 46.0 % | EXTERNAL | | | POC | performed at [facility], [address] | | LAB | | | | [address], | | | | | | [place] [address] | | | | + + + + + + | MCV | 84.4Comment: Testing | 80.0 - 100.0 fl | EXTERNAL | | | | performed at [facility], [address] | | LAB | | | | [address], | | | | | | [place] [address] | | | | + + + + + + | MCH | 27.1Comment: Testing | 27.0 - 34.0 pg | EXTERNAL | | | | performed at [facility], [address] | | LAB | | | [address], | | | | | | [place] [address] | | | | + + + + + + | MCHC | 32.0Comment: Testing | 32.0 - 35.5 | EXTERNAL | | | | performed at [facility], [address] | g/dL | LAB | | | | [address], | | | | | | [place] [address] | | | | + + + + + + | RDW-CV | 46.4Comment: Testing | 37 - 53 fl | EXTERNAL | | | | performed at [facility], [address] | | LAB | | | | [address], | | | | | | [place] [address] | | | | + + + + + + | Platelet | 185Comment: Testing | 150 - 400 K/uL | EXTERNAL | | | Count | performed at [facility], [address] | | LAB | | | Plasma | [address], | | | | | | [place] [address] | | | | + + + + + + | MPV | 9.4Comment: Testing | fl | EXTERNAL | | | | performed at [facility], [address] | | LAB | | | | [address], | | | | | | [place] [address] | | | | + + + + + + | Differentia | AUTOMATEDComment: | | EXTERNAL | | | l Type | Testing performed at | | LAB | | | | [facility], [address] | | | | | | [place] | | | | | | [address] | | | | + + + + + + | % Segmented | 74.34Comment: Testing | % | EXTERNAL | | | | performed at [facility], [address] | | LAB | | | Neutrophils | [address], | | | | | | [place] [address] | | | | + + + + + + | % | 6.52Comment: Testing | % | EXTERNAL | | | Lymphocytes | performed at [facility], [address] | | LAB | | | | [address], | | | | | | [place] [address] | | | | + + + + + + | % Monocytes | 4.80Comment: Testing | % | EXTERNAL | | | | performed at [facility], [address] | | LAB | | | | [address], | | | | | | [place] [address] | | | | + + + + + + | % | 13.94Comment: Testing | % | EXTERNAL | | | Eosinophils | performed at [facility], [address] | | LAB | | | | [address], | | | | | | [place] [address] | | | | + + + + + + | % Basophils | 0.40Comment: Testing | % | EXTERNAL | | | | performed at [facility], [address] | | LAB | | | | [address], | | | | | | [place] [address] | | | | + + + + + + | Absolute | 6.67Comment: Testing | 1.90 - 7.40 | EXTERNAL | | | Segmented | performed at [facility], [address] | K/uL | LAB | | | Neutrophils | [address], | | | | | | [place] [address] | | | | + + + + + + | Absolute | 0.59 (L)Comment: Testing | 1.00 - 3.90 | EXTERNAL | | | Lymphocytes | performed at [facility], [address] | [address] | LAB | | | | [address], | | | | | | [place] [address] | | | | + + + + + + | Absolute | 0.43Comment: Testing | 0.00 - 0.80 | EXTERNAL | | | Monocytes | performed at [facility], [address] | K[address] | LAB | | | | [address], | | | | | | [place] [address] | | | | + + + + + + | Absolute | 1.25 (H)Comment: Testing | 0.00 - 0.50 | EXTERNAL | | | Eosinophils | performed at [facility], [address] | [address] | LAB | | | | [address], | | | | | | [place] [address] | | | | + + + + + + | Absolute | 0.04Comment: Testing | 0.00 - 0.10 | EXTERNAL | | | Basophils | performed at [facility], [address] | K/uL | LAB | | | | [address], | | | | | | [place] [address] | | | | + + + + + + + + | Specimen | + + | Blood specimen | | (specimen) | + + + +---------+ + + | Performing | Address | City/State/Zipcode | Phone Number | | Organization | | | | + +---------+ + + | EXTERNAL LAB | | | | + +---------+ + + Magnesium (10/28/2015 3:39 AM PST) + + + + + + | Component | Value | Ref Range | Performed | Pathologist | | | | | At | Signature | + + + + + + | Magnesium | 2.7 (H)Comment: Testing | 1.7 - 2.4 mg/dL | EXTERNAL | | | | performed at [facility], [address] | | LAB | | | | [address], | | | | | | [place] [address] | | | | + + + [...] + +---------+ + + Renal Function Panel (10/28/2015 3:39 AM PST) + + + + + + | Component | Value | Ref Range | Performed | Pathologist | | | | | At | Signature | + + + + + + | Na | 140Comment: Testing | 135 - 143 | EXTERNAL | | | | performed at [facility], [address] | mmol/L | LAB | | | | [address], | | | | | | [place] [address] | | | | + + + + + + | K | 4.0Comment: Testing | 3.5 - 4.9 | EXTERNAL | | | | performed at [facility], [address] | mmol/L | LAB | | | | [address], | | | | | | [place] [address] | | | | + + + + + + | Cl | 102Comment: Testing | 99 - 109 mmol/L | EXTERNAL | | | | performed at [facility], [address] | | LAB | | | | [address], | | | | | | [place] [address] | | | | + + + + + + | CO2 | 20 (L)Comment: Testing | 23 - 32 mmol/L | EXTERNAL | | | | performed at [facility], [address] | | LAB | | | | [address], | | | | | | [place] [address] | | | | + + + + + + | Anion Gap | 22 (H)Comment: Testing | 5 - 20 mmol/L | EXTERNAL | | | | performed at [facility], [address] | | LAB | | | | [address], | | | | | | [place] [address] | | | | + + + + + + | Glucose, | 95Comment: Testing | 65 - 99 mg/dL | EXTERNAL | | | Fasting | performed at [facility], [address] | | LAB | | | | [address], | | | | | | [place] [address] | | | | + + + + + + | BUN | 104 (H)Comment: Testing | 8 - 25 mg/dL | EXTERNAL | | | | performed at [facility], [address] | | LAB | | | | [address], | | | | | | [place] [address] | | | | + + + + + + | Creatinine | 15.79 (H)Comment: | 0.50 - 1.00 | EXTERNAL | | | | Testing performed at | mg/dL | LAB | | | | [facility], [address] | | | | | | [place] | | | | | | [address] | | | | + + + + + + | Calcium | 6.4 (L)Comment: Testing | 8.5 - 10.5 | EXTERNAL | | | | performed at [facility], [address] | mg/dL | LAB | | | | [address], | | | | | | [place] [address] | | | | + + + + + + | Albumin | 3.0 (L)Comment: Testing | 3.6 - 5.0 g/dL | EXTERNAL | | | | performed at [facility], [address] | | LAB | | | | [address], | | | | | | [place] [address] | | | | + + + + + + | PHOSPHORUS | 10.5 (HH)Comment: RESULT | 2.3 - 4.8 mg/dL | EXTERNAL | | | | READ BACK BY:JIA | | LAB | | | | L/RN/OCT 28, | | | | | | :22[facility] | | performed at [facility], [address] | | | | | | [address], | | | | | | [place] [address] | | | | + + + [...] W | | | | | | [facility], | | | | | | [place] [address] | | | | + + + + + + + + | Specimen | + + | | + + + +---------+ + + | Performing | Address | City/State/Zipcode | Phone Number | | Organization | | | | + +---------+ + + | EXTERNAL LAB | | | | + +---------+ + + Vitamin B-12 and Folate (10/27/2015 5:46 AM PST) + + + + + + | Component | Value | Ref Range | Performed | Pathologist | | | | | At | Signature | + + + + + + | VITAMIN | 444Comment: Testing | 254 - 1,320 | EXTERNAL | | | B-12 | performed at [facility], [address] | pg/mL | LAB | | | | [address], | | | | | | [place] [address] | | | | + + + + + + | Folate | 4.0 (L)Comment: Testing | ng/mL | EXTERNAL | | | | performed at [facility], [address] | | LAB | | | | [address], | | | | | | [place] [address] | | | | + + + + + + + + | Specimen | + + | Blood specimen | | (specimen) | + + + +---------+ + + | Performing | Address | City/State/Zipcode | Phone Number | | Organization | | | | + +---------+ + + | EXTERNAL LAB | | | | + +---------+ + + TSH with Reflex (10/27/2015 5:46 AM PST) + + + + + + | Component | Value | Ref Range | Performed | Pathologist | | | | | At | Signature | + + + + + + | TSH | 3.40Comment: Testing | 0.45 - 5.10 | EXTERNAL | | | | performed at [facility], [address] | uIU/mL | LAB | | | | [address], | | | | | | [place] [address] | | | | + + + + + + + + | Specimen | + + | Blood specimen | | (specimen) | + + + +---------+ + + | Performing | Address | City/State/Zipcode | Phone Number | | Organization | | | | + +---------+ + + | EXTERNAL LAB | | | | + +---------+ + + Iron and Iron Binding Capacity (10/27/2015 5:46 AM PST) + + + + + + | Component | Value | Ref Range | Performed | Pathologist | | | | | At | Signature | + + + + + + | Iron | 26 (L)Comment: Testing | 30 - 180 ug/dL | EXTERNAL | | | | performed at [facility], [address] | | LAB | | | | [address], | | | | | | [place] [address] | | | | + + + + + + | TIBC | 212 (L)Comment: Testing | 260 - 490 ug/dL | EXTERNAL | | | | performed at [facility], [address] | | LAB | | | | [address], | | | | | | [place] [address] | | | | + + + + + + | Iron | 12 (L)Comment: Testing | 15 - 50 % | EXTERNAL | | | Saturation | performed at [facility], [address] | | LAB | | | | [address], | | | | | | [place] [address] | | | | + + + [...] + +---------+ + + External Lab: BLAINE (10/27/2015 5:46 AM PST) + + + + + + | Component | Value | Ref Range | Performed | Pathologist | | | | | At | Signature | + + + + + + | WBC | 8.63Comment: Testing | 3.80 - 11.00 | EXTERNAL | | | | performed at [facility], [address] | K/uL | LAB | | | | [address], | | | | | | [place] [address] | | | | + + + + + + | Red Blood | 3.00 (L)Comment: Testing | 3.70 - 5.10 | EXTERNAL | | | Cells | performed at [facility], [address] | M/uL | LAB | | | Counted | [address], | | | | | | [place] [address] | | | | + + + + + + | Hemoglobin | 8.1 (L)Comment: Testing | 11.3 - 15.5 | EXTERNAL | | | | performed at [facility], [address] | g/dL | LAB | | | | [address], | | | | | | [place] [address] | | | | + + + + + + | Hematocrit, | 25.5 (L)Comment: Testing | 34.0 - 46.0 % | EXTERNAL | | | POC | performed at [facility], [address] | | LAB | | | | [address], | | | | | | [place] [address] | | | | + + + + + + | MCV | 85.0Comment: Testing | 80.0 - 100.0 fl | EXTERNAL | | | | performed at [facility], [address] | | LAB | | | | [address], | | | | | | [place] [address] | | | | + + + + + + | MCH | 27.2Comment: Testing | 27.0 - 34.0 pg | EXTERNAL | | | | performed at [facility], [address] | | LAB | | | [address], | | | | | | [place] [address] | | | | + + + + + + | MCHC | 31.9 (L)Comment: Testing | 32.0 - 35.5 | EXTERNAL | | | | performed at [facility], [address] | g/dL | LAB | | | | [address], | | | | | | [place] [address] | | | | + + + + + + | RDW-CV | 48.1Comment: Testing | 37 - 53 fl | EXTERNAL | | | | performed at [facility], [address] | | LAB | | | | [address], | | | | | | [place] [address] | | | | + + + + + + | Platelet | 195Comment: Testing | 150 - 400 K/uL | EXTERNAL | | | Count | performed at [facility], [address] | | LAB | | | Plasma | [address], | | | | | | [place] [address] | | | | + + + + + + | MPV | 9.5Comment: Testing | fl | EXTERNAL | | | | performed at [facility], [address] | | LAB | | | | [address], | | | | | | [place] [address] | | | | + + + + + + | Differentia | AUTOMATEDComment: | | EXTERNAL | | | l Type | Testing performed at | | LAB | | | | [facility], [address] | | | | | | [place] | | | | | | [address] | | | | + + + + + + | % Segmented | 76.55Comment: Testing | % | EXTERNAL | | | | performed at [facility], [address] | | LAB | | | Neutrophils | [address], | | | | | | [place] [address] | | | | + + + + + + | % | 8.35Comment: Testing | % | EXTERNAL | | | Lymphocytes | performed at [facility], [address] | | LAB | | | | [address], | | | | | | [place] [address] | | | | + + + + + + | % Monocytes | 4.66Comment: Testing | % | EXTERNAL | | | | performed at [facility], [address] | | LAB | | | | [address], | | | | | | [place] [address] | | | | + + + + + + | % | 9.83Comment: Testing | % | EXTERNAL | | | Eosinophils | performed at [facility], [address] | | LAB | | | | [address], | | | | | | [place] [address] | | | | + + + + + + | % Basophils | 0.61Comment: Testing | % | EXTERNAL | | | | performed at [facility], [address] | | LAB | | | [address], | | | | | | [place] [address] | | | | + + + + + + | Absolute | 6.60Comment: Testing | 1.90 - 7.40 | EXTERNAL | | | Segmented | performed at [facility], [address] | K/uL | LAB | | | Neutrophils | [address], | | | | | | [place] [address] | | | | + + + + + + | Absolute | 0.72 (L)Comment: Testing | 1.00 - 3.90 | EXTERNAL | | | Lymphocytes | performed at [facility], [address] | [address] | LAB | | | | [address], | | | | | | [place] [address] | | | | + + + + + + | Absolute | 0.40Comment: Testing | 0.00 - 0.80 | EXTERNAL | | | Monocytes | performed at [facility], [address] | K[address] | LAB | | | | [address], | | | | | | [place] [address] | | | | + + + + + + | Absolute | 0.85 (H)Comment: Testing | 0.00 - 0.50 | EXTERNAL | | | Eosinophils | performed at [facility], [address] | [address] | LAB | | | | [address], | | | | | | [place] [address] | | | | + + + + + + | Absolute | 0.05Comment: Testing | 0.00 - 0.10 | EXTERNAL | | | Basophils | performed at [facility], [address] | [address] | LAB | | | | [address], | | | | | | [place] [address] | | | | + + + + + + + + | Specimen | + + | Blood specimen | | (specimen) | + + + +---------+ + + | Performing | Address | City/State/Zipcode | Phone Number | | Organization | | | | + +---------+ + + | EXTERNAL LAB | | | | + +---------+ + + Magnesium (10/27/2015 5:46 AM PST) + + + + + + | Component | Value | Ref Range | Performed | Pathologist | | | | | At | Signature | + + + + + + | Magnesium | 2.7 (H)Comment: Testing | 1.7 - 2.4 mg/dL | EXTERNAL | | | | performed at [facility], [address] | | LAB | | | | [address], | | | | | | [place] [address] | | | | + + + + + + + + | Specimen | + + | Blood specimen | | (specimen) | + + + +---------+ + + | Performing | Address | City/State/Zipcode | Phone Number | | Organization | | | | + +---------+ + + | EXTERNAL LAB | | | | + +---------+ + + Ferritin (10/27/2015 5:46 AM PST) + + + + + + | Component | Value | Ref Range | Performed | Pathologist | | | | | At | Signature | + + + + + + | Ferritin, | 56Comment: Testing | 6 - 170 ng/mL | EXTERNAL | | | External | performed at [facility], [address] | | LAB | | | | [address], | | | | | | [place] [address] | | | | + + + + + + + + | Specimen | + + | Blood specimen | | (specimen) | + + + +---------+ + + | Performing | Address | City/State/Zipcode | Phone Number | | Organization | | | | + +---------+ + + | EXTERNAL LAB | | | | + +---------+ + + Calcium, Ionized (10/27/2015 5:46 AM PST) + + + + + + | Component | Value | Ref Range | Performed | Pathologist | | | | | At | Signature | + + + + + + | Calcium | 0.85 (L)Comment: Testing | 1.08 - 1.25 | EXTERNAL | | | (Calc) | performed at [facility];[address] | mmol/L | LAB | | | | [address];[place] | | | | | | [address] | | | | + + + + + + | pH, Bld | 7.338Comment: Testing | 7.300 - 7.450 | EXTERNAL | | | | performed at [facility];[address] | | LAB | | | | [address];[place] | | | | | | [address] | | | | + + + [...] + +---------+ + + Renal Function Panel (10/27/2015 5:46 AM PST) + + + + + + | Component | Value | Ref Range | Performed | Pathologist | | | | | At | Signature | + + + + + + | Na | 139Comment: Testing | 135 - 143 | EXTERNAL | | | | performed at [facility], [address] | mmol/L | LAB | | | | [address], | | | | | | [place] [address] | | | | + + + + + + | K | 4.8Comment: Testing | 3.5 - 4.9 | EXTERNAL | | | | performed at [facility], [address] | mmol/L | LAB | | | | [address], | | | | | | [place] [address] | | | | + + + + + + | Cl | 106Comment: Testing | 99 - 109 mmol/L | EXTERNAL | | | | performed at [facility], [address] | | LAB | | | | [address], | | | | | | [place] [address] | | | | + + + + + + | CO2 | 15 (L)Comment: Testing | 23 - 32 mmol/L | EXTERNAL | | | | performed at [facility], [address] | | LAB | | | | [address], | | | | | | [place] [address] | | | | + + + + + + | Anion Gap | 23 (H)Comment: Testing | 5 - 20 mmol/L | EXTERNAL | | | | performed at [facility], [address] | | LAB | | | | [address], | | | | | | [place] [address] | | | | + + + + + + | Glucose, | 87Comment: Testing | 65 - 99 mg/dL | EXTERNAL | | | Fasting | performed at [facility], [address] | | LAB | | | | [address], | | | | | | [place] [address] | | | | + + + + + + | BUN | 109 (H)Comment: Testing | 8 - 25 mg/dL | EXTERNAL | | | | performed at [facility], [address] | | LAB | | | | [address], | | | | | | [place] [address] | | | | + + + + + + | Creatinine | 14.69 (H)Comment: | 0.50 - 1.00 | EXTERNAL | | | | Testing performed at | mg/dL | LAB | | | | [facility], [address] | | | | | | [place] | | | | | | [address] | | | | + + + + + + | Calcium | 6.6 (L)Comment: Testing | 8.5 - 10.5 | EXTERNAL | | | | performed at [facility], [address] | mg/dL | LAB | | | | [address], | | | | | | [place] [address] | | | | + + + + + + | Albumin | 3.2 (L)Comment: Testing | 3.6 - 5.0 g/dL | EXTERNAL | | | | performed at [facility], [address] | | LAB | | | | [address], | | | | | | [place] [address] | | | | + + + + + + | PHOSPHORUS | 10.6 (HH)Comment: RESULT | 2.3 - 4.8 mg/dL | EXTERNAL | | | | READ BACK BY: CHRISTINA | | LAB | | | | Angela @ MARY 7:20 10/27/15 | | | | | | DHTesting performed at | | | | | | [facility], [address] [facility] | | | | | | [place] | | | | | | [address] | | | | + + + [...] | | | | | | at [facility], [address] | | | | | | [facility] [address], | | | | | | [place] [address] | | | | + + + + + + + + | Specimen | + + | | + + + +---------+ + + | Performing | Address | City/State/Zipcode | Phone Number | | Organization | | | | + +---------+ + + | EXTERNAL LAB | | | | + +---------+ + + Urinalysis, Microscopic Only (10/27/2015 5:37 AM PST) + + + + + + | Component | Value | Ref Range | Performed | Pathologist | | | | | At | Signature | + + + + + + | WBC, UA | 16-25Comment: Testing | 0 - 5 /hpf | EXTERNAL | | | | performed at [facility], [address] | | LAB | | | | [address], | | | | | | [place] [address] | | | | + + + + + + | RBC, UA | 50-100Comment: Testing | 0 - 5 /hpf | EXTERNAL | | | | performed at [facility], [address] | | LAB | | | [address], | | | | | | [place] [address] | | | | + + + + + + | Epithelial | 6-10Comment: Testing | /lpf | EXTERNAL | | | Cells | performed at [facility], [address] | | LAB | | | | [address], | | | | | | [place] [address] | | | | + + + + + + | Bacteria, | 2+ (A)Comment: Testing | | EXTERNAL | | | UA | performed at [facility], [address] | | LAB | | | | [address], | | | | | | [place] [address] | | | | + + + + + + + + | Specimen | + + | | + + + +---------+ + + | Performing | Address | City/State/Zipcode | Phone Number | | Organization | | | | + +---------+ + + | EXTERNAL LAB | | | | + +---------+ + + Urinalysis with Microscopic if Indicated (10/27/2015 5:37 AM PST) + + + + + + | Component | Value | Ref Range | Performed | Pathologist | | | | | At | Signature | + + + + + + | Color | YELLOWComment: Testing | | EXTERNAL | | | | performed at [facility], [address] | | LAB | | | | [address], | | | | | | [place] [address] | | | | + + + + + + | Clarity | CLOUDYComment: Testing | | EXTERNAL | | | | performed at [facility], [address] | | LAB | | | | [address], | | | | | | [place] [address] | | | | + + + + + + | Specific | 1.012Comment: Testing | 1.002 - 1.030 | EXTERNAL | | | [place], | performed at [facility], [address] | | LAB | | | Urine | [address], | | | | | | [place] [address] | | | | + + + + + + | Leukocyte | SMALL (A)Comment: | | EXTERNAL | | | Esterase, | Testing performed at | | LAB | | | Urine | [facility], [address] | | | | | | [place] | | | | | | [address] | | | | + + + + + + | Nitrite, | NEGATIVEComment: Testing | | EXTERNAL | | | Urine | performed at [facility], [address] | | LAB | | | | [address], | | | | | | [place] [address] | | | | + + + + + + | Urobilinoge | 0.2Comment: Testing | mg/dL | EXTERNAL | | | n, Urine | performed at [facility], [address] | | LAB | | | | [address], | | | | | | [place] [address] | | | | + + + + + + | Protein, | 300 (A)Comment: Testing | mg/dL | EXTERNAL | | | Urine | performed at [facility], [address] | | LAB | | | | [address], | | | | | | [place] [address] | | | | + + + + + + | pH, Urine | 5.5Comment: Testing | 5.0 - 8.0 | EXTERNAL | | | | performed at [facility], [address] | | LAB | | | | [address], | | | | | | [place] [address] | | | | + + + + + + | Blood, | LARGE (A)Comment: | | EXTERNAL | | | Urine | Testing performed at | | LAB | | | | [facility], [address] | | | | | | [place] | | | | | | [address] | | | | + + + + + + | Ketones | NEGATIVEComment: Testing | mg/dL | EXTERNAL | | | | performed at [facility], [address] | | LAB | | | | [address], | | | | | | [place] [address] | | | | + + + + + + | Bilirubin, | NEGATIVEComment: Testing | | EXTERNAL | | | Urine | performed at [facility], [address] | | LAB | | | | [address], | | | | | | [place] [address] | | | | + + + + + + | Glucose, | NEGATIVEComment: Testing | mg/dL | EXTERNAL | | | Urine | performed at [facility], [address] | | LAB | | | | [address], | | | | | | [place] [address] | | | | + + + + + + + + | Specimen | + + | Urine specimen | | (specimen) | + + + +---------+ + + | Performing | Address | City/State/Zipcode | Phone Number | | Organization | | | | + +---------+ + + | EXTERNAL LAB | | | | + +---------+ + + Hemoglobin and Hematocrit (10/26/2015 6:31 PM PST) + + + + + + | Component | Value | Ref Range | Performed | Pathologist | | | | | At | Signature | + + + + + + | Hemoglobin | 7.7 (L)Comment: Testing | 11.3 - 15.5 | EXTERNAL | | | | performed at [facility];[address] | g/dL | LAB | | | | [address];[place] | | | | | | [address] | | | | + + + + + + | Hematocrit, | 25.1 (L)Comment: Testing | 34.0 - 46.0 % | EXTERNAL | | | POC | performed at [facility];[address] | | LAB | | | | [address];[place] | | | | | | [address] | | | | + + + + + + + + | Specimen | + + | | + + + +---------+ + + | Performing | Address | City/State/Zipcode | Phone Number | | Organization | | | | + +---------+ + + | EXTERNAL LAB | | | | + +---------+ + + Basic Metabolic Panel (10/26/2015 6:31 PM PST) + + + + + + | Component | Value | Ref Range | Performed | Pathologist | | | | | At | Signature | + + + + + + | Na | 142Comment: Testing | 135 - 143 | EXTERNAL | | | | performed at [facility];[address] | mmol/L | LAB | | | | [address];[place], [place] | | | | | | [address] | | | | + + + + + + | K | 4.5Comment: Testing | 3.5 - 4.9 | EXTERNAL | | | | performed at [facility];[address] | mmol/L | LAB | | | | [address];[place] | | | | | | [address] | | | | + + + + + + | Cl | 111 (H)Comment: Testing | 99 - 109 mmol/L | EXTERNAL | | | | performed at [facility];[address] | | LAB | | | | [address];[place] | | | | | | [address] | | | | + + + + + + | CO2 | 14 (LL)Comment: RESULT | 23 - 32 mmol/L | EXTERNAL | | | | READ BACK BY:MICHELLE GAGE | | LAB | | | | [place] [address] | | | | | | @7554 NSTesting | | | | | | performed at [facility];[address] | | | | | | [address];[place] | | | | | | [address] | | | | + + + + + + | Anion Gap | 21 (H)Comment: Testing | 5 - 20 mmol/L | EXTERNAL | | | | performed at [facility];[address] | | LAB | | | | [address];[place] | | | | | | [address] | | | | + + + + + + | Glucose, | 96Comment: Testing | 65 - 99 mg/dL | EXTERNAL | | | Fasting | performed at [facility];[address] | | LAB | | | | [address];[place] | | | | | | [address] | | | | + + + + + + | BUN | 104 (H)Comment: Testing | 8 - 25 mg/dL | EXTERNAL | | | | performed at [facility];[address] | | LAB | | | | [address];[place] | | | | | | [address] | | | | + + + + + + | Creatinine | 16 (H)Comment: Testing | 0.50 - 1.00 | EXTERNAL | | | | performed at [facility];[address] | mg/dL | LAB | | | | [address];[place] | | | | | | [address] | | | | + + + + + + | BUN/Creatin | 7Comment: Testing | | EXTERNAL | | | ine Ratio | performed at [facility];[address] | | LAB | | | | [address];[place] | | | | | | [address] | | | | + + + + + + | Calcium | 6.0 (L)Comment: Testing | 8.5 - 10.5 | EXTERNAL | | | | performed at [facility];[address] | mg/dL | LAB | | | | [address];[place] | | | | | | [address] | | | | + + + [...] | | | | | | at [facility];[address];[place] [address] | | | | + + + + + + + + | Specimen | + + | Blood specimen | | (specimen) | + + + +---------+ + + | Performing | Address | City/State/Zipcode | Phone Number | | Organization | | | | + +---------+ + + | EXTERNAL LAB | | | | + +---------+ + + Hemoglobin and Hematocrit (10/26/2015 3:56 PM PST) + + + + + + | Component | Value | Ref Range | Performed | Pathologist | | | | | At | Signature | + + + + + + | Hemoglobin | 8.0 (L)Comment: Testing | 11.3 - 15.5 | EXTERNAL | | | | performed at [facility], [address] | g/[address] | LAB | | | | [address], | | | | | | [place] [address] | | | | + + + + + + | Hematocrit, | 25.3 (L)Comment: Testing | 34.0 - 46.0 % | EXTERNAL | | | POC | performed at [facility], [address] | LAB | | | | [address], | | | | | | [place] [address] | | | | + + + + + + + + | Specimen | + + | | + + + +---------+ + + | Performing | Address | City/State/Zipcode | Phone Number | | Organization | | | | + +---------+ + + | EXTERNAL LAB | | | | + +---------+ + + Scabies, Identification (10/26/2015 3:56 PM PST) + + | Specimen | + + | | + + + + + | Narrative | Performed At | + + + | Specimen Description SKIN SCABIES | EXTERNAL LAB | | SCRAPING NO SCABIES SEEN | | | Testing performed at [facility], [address] | | | [place] [address] | | + + + + +---------+ + + | Performing | Address | City/State/Zipcode | Phone Number | | Organization | | | | + +---------+ + + | EXTERNAL LAB | | | | + +---------+ + + CT Guided Biopsy Renal (10/26/2015 10:57 AM PST) + + | Specimen | + + | | + + + + + | Impressions | Performed At | + + + | 1. Successful CT core needle biopsy of the right kidney. | | | | | + + + + + + | Narrative | Performed At | + + + | [facility] CT NEEDLE BIOPSY KIDNEY 10/26/2015 10:57 AM | | | HISTORY: 35 years. Female. Hematuria and severe acute kidney | | | injury. COMPARISON: Renal ultrasound 10/25/2015.. | | | DESCRIPTION OF PROCEDURE: Prior to beginning the procedure, I | | | obtained written informed consent. A timeout was performed. Patient | | | positioning: Prone. Axial dance teacher images were obtained through region | | | of interest with a skin marker grid. A skin site was selected and | | | marked. The skin was then prepped and draped in the usual sterile | | | fashion and anesthetized with 1% lidocaine buffered with sodium | | | bicarbonate. Subsequently, an 17-gauge Bard core biopsy guide needle | | | was advanced using CT guidance until satisfactory needle tip position | | | was achieved. 3 core biopsy sample(s) obtained, placed in saline | | | and sent to pathology. Before the guide needle was removed, a | | | Gelfoam slurry was injected along the needle tract. A limited set of | | | axial images were then obtained through the area biopsied. The | | | patient tolerated the procedure well. COMPLICATIONS: There were | | | no immediate complications. MEDICATIONS: I.V. conscious sedation | | | was supervised by Dr. Chase using Versed and Fentanyl for 30 minutes. | | | Using automated blood pressure, EKG and pulse oximetry, the patient | | | was independently monitored by a radiology nurse certified to give | | | conscious sedation. There were no sedation complications. | | + + + + + | Procedure Note | + + | Endy, Rad Conversion - 06/25/2019 11:42 AM PDT [facility] | | [id number]/26/2015 10:57 AM HISTORY:35 years. Female. Hematuria and severe acute kidney | | injury. COMPARISON:Renal ultrasound 10/25/2015.. DESCRIPTION OF PROCEDURE:Prior to | | beginning the procedure, I obtained written informed consent. A timeout was | | performed.Patient positioning: Prone.Axial dance teacher images were obtained through region of | | interest with a skin marker grid. A skin site was selected and marked. The skin was | | then prepped and draped in the usual sterile fashion and anesthetized with 1% lidocaine | | buffered with sodium bicarbonate. Subsequently, an 17-gauge Bard core biopsy guide | | needle was advanced using CT guidance until satisfactory needle tip position was | | achieved. 3 core biopsy sample(s) obtained, placed in saline and sent to pathology. | | Before the guide needle was removed, a Gelfoam slurry was injected along the needle | | tract. A limited set of axial images were then obtained through the area biopsied. The | | patient tolerated the procedure well. COMPLICATIONS:There were no immediate | | complications. MEDICATIONS:I.V. conscious sedation was supervised by Dr. Chase using | | Versed and Fentanyl for 30 minutes. Using automated blood pressure, EKG and pulse | | oximetry, the patient was independently monitored by a radiology nurse certified to give | | conscious sedation. There were no sedation complications. IMPRESSION: 1. Successful CT | | core needle biopsy of the right kidney. Electronically signed by Rohan Chase MD on | | 10/26/2015 1:03 PM | |There were no immediate complications. | | | |MEDICATIONS: | |I.V. conscious sedation was supervised by Dr. Chase using Versed and Fentanyl for 30 minut es. Using automated blood pressure, EKG and pulse oximetry, the patient was independently mo nitored by a radiology nurse certified to give conscious sedation. | |There were no sedation complications. | | | |IMPRESSION: | |1. Successful CT core needle biopsy of the right kidney. | | | | | + + Culture, MRSA (10/26/2015 9:55 AM PST) + + | Specimen | + + | Body fluid sample | | (specimen) | + + + + + | Narrative | Performed At | + + + | Specimen Description NARES(NOSE) CULTURE | EXTERNAL LAB | | NO METHICILLIN RESISTANT STAPH | | | AUREUS ISOLATED. | | | Testing performed at [facility], [address], [place] | | | [address] | | + + + + +---------+ + + | Performing | Address | City/State/Zipcode | Phone Number | | Organization | | | | + +---------+ + + | EXTERNAL LAB | | | | + +---------+ + + PTT (10/26/2015 9:39 AM PST) + + + + + + | Component | Value | Ref Range | Performed | Pathologist | | | | | At | Signature | + + + + + + | aPTT, | 28Comment: Testing | 23 - 32 seconds | EXTERNAL | | | Patient | performed at [facility] | | LAB | | | | [address];[place] | | | | | | [address] | | | | + + + + + + + + | Specimen | + + | Blood specimen | | (specimen) | + + + +---------+ + + | Performing | Address | City/State/Zipcode | Phone Number | | Organization | | | | + +---------+ + + | EXTERNAL LAB | | | | + +---------+ + + Protime INR (10/26/2015 9:39 AM PST) + + + + + + | Component | Value | Ref Range | Performed | Pathologist | | | | | At | Signature | + + + + + + | INR | 1.0Comment: REFERENCE | | EXTERNAL | | | [...] | | | | | performed at [facility];[address] | | | | | | [facility];[place], [place] | | | | | | [address] | | | | + + + + + + + + | Specimen | + + | Blood specimen | | (specimen) | + + + +---------+ + + | Performing | Address | City/State/Zipcode | Phone Number | | Organization | | | | + +---------+ + + | EXTERNAL LAB | | | | + +---------+ + + Platelet Count (10/26/2015 9:39 AM PST) + + + + + + | Component | Value | Ref Range | Performed | Pathologist | | | | | At | Signature | + + + + + + | Platelet | 222Comment: Testing | 150 - 400 K/uL | EXTERNAL | | | Count | performed at [facility];[address] | | LAB | | | Plasma | [address];[place] | | | | | | [address] | | | | + + + + + + + + | Specimen | + + | Blood specimen | | (specimen) | + + + +---------+ + + | Performing | Address | City/State/Zipcode | Phone Number | | Organization | | | | + +---------+ + + | EXTERNAL LAB | | | | + +---------+ + + Quantiferon Gold (10/26/2015 5:26 AM PST) + + + + + + | Component | Value | Ref Range | Performed | Pathologist | | | | | At | Signature | + + + + + + | Quantiferon | INDETERMINATEComment: | | EXTERNAL | | | TB Gold | THIS RESULT MAY BE DUE | | LAB | | | | TO A LOW INTERNAL | | | | | | POSITIVE (MITOGEN) | | | | | | CONTROL ORELEVATED NIL | | | | | | VALUE. THIS MAY BE DUE | | | | | | TO PATIENT T-CELL | | | | | | ANERGY, ORINSUFFICIENT | | | | | | MIXING OF BLOOD | | | | | | COLLECTION TUBES. | | | | | | RETESTING IS | | | | | | SUGGESTEDIN 6-8 | | | | | | WEEKS.Testing performed | | | | | | at [facility], [address] | | | | | | [place] | | | | | | [address] | | | | + + + + + + + + | Specimen | + + | | + + + +---------+ + + | Performing | Address | City/State/Zipcode | Phone Number | | Organization | | | | + +---------+ + + | EXTERNAL LAB | | | | + +---------+ + + Protein Electrophoresis and RAYMOND with [facility] (10/26/2015 5:26 AM PST) + + + + + + | Component | Value | Ref Range | Performed | Pathologist | | | | | At | Signature | + + + + + + | Ig [place] | 29.00 (H)Comment: | 0.33 - 1.94 | EXTERNAL | | | Free Light | Testing performed at | mg/dL | LAB | | | Chain | [facility], [address] | | | | | | [place] | | | | | | [address] | | | | + + + + + + | kaplamflc | 18.70 (H)Comment: | 0.57 - 2.63 | EXTERNAL | | | | Testing performed at | mg/dL | LAB | | | | [facility], [address] | | | | | | [place] | | | | | | [address] | | | | + + + + + + | [place]/Lambd | 1.55Comment: Testing | 0.26 - 1.65 | EXTERNAL | | | a Free | performed at [facility], [address] | | LAB | | | Light Chain | [address] [place] | | | | | Ratio | [place] [address] | | | | + + + + + + | Protein, | 6.1 (L)Comment: Testing | 6.2 - 8.2 g/dL | EXTERNAL | | | Total | performed at [facility], [address] | | LAB | | | | [place] | | | | | | [place] [address] | | | | + + + + + + | ELP Albumin | 2.7 (L)Comment: Testing | 3.5 - 5.0 g/dL | EXTERNAL | | | % | performed at [facility], [address] | | LAB | | | | [place] | | | | | | [place] [address] | | | | + + + + + + | ALPHA 1, BF | 0.4Comment: Testing | 0.1 - 0.4 g/dL | EXTERNAL | | | | performed at [facility], [address] | | LAB | | | | [place] | | | | | | [place] [address] | | | | + + + + + + | ALPHA 2 | 0.9Comment: Testing | 0.5 - 1.1 g/dL | EXTERNAL | | | GLOBULIN | performed at [facility], [address] | | LAB | | | | [place] | | | | | | [place] [address] | | | | + + + + + + | Beta-1 | 0.4Comment: Testing | 0.4 - 0.8 g/dL | EXTERNAL | | | | performed at [facility], [address] | | LAB | | | | [place] | | | | | | [place] [address] | | | | + + + + + + | BETA 2, BF | 0.3Comment: Testing | 0.2 - 0.6 g/dL | EXTERNAL | | | | performed at [facility], [address] | | LAB | | | | [place] | | | | | | [place] [address] | | | | + + + + + + | GAMMA, BF | 1.3Comment: Testing | 0.6 - 1.5 g/dL | EXTERNAL | | | | performed at [facility], [address] | | LAB | | | | [place] | | | | | | [place] [address] | | | | + + + + + + | Albumin | 44.9 (L)Comment: Testing | 45.0 - 80.0 % | EXTERNAL | | | | performed at [facility], [address] | | LAB | | | | [address] [place] | | | | | | [place] [address] | | | | + + + + + + | ALPHA 1, BF | 5.8Comment: Testing | 1.0 - 6.0 % | EXTERNAL | | | | performed at [facility], [address] | | LAB | | | | [place] | | | | | | [place] [address] | | | | + + + + + + | Alpha 2 % | 15.2Comment: Testing | 6.0 - 17.0 % | EXTERNAL | | | | performed at [facility], [address] | | LAB | | | | [place] | | | | | | [place] [address] | | | | + + + + + + | Beta-1 % | 7.0Comment: Testing | 5.0 - 13.0 % | EXTERNAL | | | | performed at [facility], [address] | | LAB | | | | [place] | | | | | | [place] [address] | | | | + + + + + + | Beta-2 % | 5.5Comment: Testing | 2.0 - 8.5 % | EXTERNAL | | | | performed at [facility], [address] | | LAB | | | | [place] | | | | | | [place] [address] | | | | + + + + + + | GAMMA, BF | 21.6Comment: Testing | 7.5 - 24.0 % | EXTERNAL | | | | performed at [facility], [address] | | LAB | | | | [place] | | | | | | [place] [address] | | | | + + + + + + | ELP | HYPOALBUMINEMIA.Comment: | | EXTERNAL | | | INTERPRETAT | INTERPRETED BY | | LAB | | | ION | JSCTesting performed at | | | | | | [facility], [address] | | | | | | [place] | | | | | | [address] | | | | + + + + + + | Immunofixat | SEE BELOWComment: SERUM | | EXTERNAL | | | ion, Urine | RAYMOND STUDIES SHOW NO | | LAB | | | Interp | EVIDENCE OF MONOCLONAL | | | | | | GAMMOPATHY.INTERPRETED | | | | | | BY JSCTesting performed | | | | | | at [facility], [address] | | | | | | [place] | | | | | | [address] | | | | + + + + + + + + | Specimen | + + | Blood specimen | | (specimen) | + + + +---------+ + + | Performing | Address | City/State/Zipcode | Phone Number | | Organization | | | | + +---------+ + + | EXTERNAL LAB | | | | + +---------+ + + Hepatitis A, B, C Obdulio Hodges (10/26/2015 5:26 AM PST) + + + + + + | Component | Value | Ref Range | Performed | Pathologist | | | | | At | Signature | + + + + + + | Hep A Total | NON REACTIVEComment: | | EXTERNAL | | | Ab Interp | Testing performed at | | LAB | | | | [facility], [address] | | | | | | [place] | | | | | | [address] | | | | + + + + + + | HEP B | NON REACTIVEComment: | | EXTERNAL | | | SURFACE | Testing performed at | | LAB | | | ANTIBODY | [facility], [address] | | | | | | [place] | | | | | | [address] | | | | + + + + + + | Hepatitis B | NON REACTIVEComment: | | EXTERNAL | | | Core Ab | Testing performed at | | LAB | | | Total | [facility], [address] | | | | | | [place] | | | | | | [address] | | | | + + + + + + | HCV Ab | NON REACTIVEComment: | | EXTERNAL | | | | Testing performed at | | LAB | | | | [facility], [address] | | | | | | [place] | | | | | | [address] | | | | + + + + + + | Hepatitis | No serologic evidence of | | EXTERNAL | | | Interpretat | current Hepatitis A or | | LAB | | | ion | B virus | | | | | | infection.Comment: | | | | | | Absence of antibody | | | | | | suggests no past | | | | | | Hepatitis C infection. | | | | | | Since antibody | | | | | | development may be | | | | | | delayed up to 6 months | | | | | | after infection, | | | | | | retesting may be | | | | | | indicated.Testing | | | | | | performed at [facility], [address] | | | | | | [facility], | | | | | | [place] [address] | | | | + + + + + + + + | Specimen | + + | Blood specimen | | (specimen) | + + + +---------+ + + | Performing | Address | City/State/Zipcode | Phone Number | | Organization | | | | + +---------+ + + | EXTERNAL LAB | | | | + +---------+ + + C3 and C4 (10/26/2015 5:26 AM PST) + + + + + + | Component | Value | Ref Range | Performed | Pathologist | | | | | At | Signature | + + + + + + | C3 | 79 (L)Comment: Testing | 90 - 180 mg/dL | EXTERNAL | | | COMPLEMENT | performed at [facility], [address] | | LAB | | | | [address], | | | | | | [place] [address] | | | | + + + + + + | Complement | 24.0Comment: Testing | 10 - 40 mg/dL | EXTERNAL | | | Comp 4 | performed at [facility], [address] | | LAB | | | | [address], | | | | | | [place] [address] | | | | + + + + + + + + | Specimen | + + | Blood specimen | | (specimen) | + + + +---------+ + + | Performing | Address | City/State/Zipcode | Phone Number | | Organization | | | | + +---------+ + + | EXTERNAL LAB | | | | + +---------+ + + HIV 1 Screen, Rapid (10/26/2015 5:26 AM PST) + + + + + + | Component | Value | Ref Range | Performed | Pathologist | | | | | At | Signature | + + + + + + | HIV 1 and 2 | NON REACTIVEComment: | | EXTERNAL | | | Ab, Rapid | Testing performed at | | LAB | | | | [facility];[address] | | | | | | [address];[place] [address] | | | | + + + + + + + + | Specimen | + + | Blood specimen | | (specimen) | + + + +---------+ + + | Performing | Address | City/State/Zipcode | Phone Number | | Organization | | | | + +---------+ + + | EXTERNAL LAB | | | | + +---------+ + + Glomerular Basement Membrane Ab, IgG (10/26/2015 5:26 AM PST) + + + + + + | Component | Value | Ref Range | Performed | Pathologist | | | | | At | Signature | + + + + + + | GBM AB | 2Comment: NOTE NEW | 0 - 20 U/mL | EXTERNAL | | | | REFERENCE RANGE AND | | LAB | | | | UNITSREFERENCE RANGE:0 | | | | | | - 20 [id number] - 30 | | | | | | WEAK POSITIVE>30 | | | | | | MODERATE TO STRONG | | | | | | POSITIVETHIS TEST IS | | | | | | DESIGNED FOR THE IN | | | | | | VITRO MEASUREMENT OF | | | | | | SPECIFIC | | | | | | IGGAUTOANTIBODIES | | | | | | AGAINST THE GLOMERULAR | | | | | | BASEMENT MEMBRANE | | | | | | (GBM).IT IS INTENDED | | | | | | AN AID IN THE DIAGNOSIS | | | | | | OF GOODPASTURE'S | | | | | | SYNDROME.SOME PATIENTS | | | | | | WITH OTHER RENAL | | | | | | DISEASES MAY EXHIBIT | | | | | | POSITIVE | | | | | | RESULTS.GLOMERULAR | | | | | | BASEMENT MEMBRANE | | | | | | ANTIBODIES ARE NOT FOUND | | | | | | IN NORMALHEALTHY | | | | | | INDIVIDUALS.RESULTS WERE | | | | | | OBTAINED WITH THE | | | | | | ShoutOmaticA LITE GBM | | | | | | CARMELLA ASSAY.VALUES | | | | | | OBTAINED FROM DIFFERENT | | | | | | [employer]FA[employer]YS | | | | | | CANNOT BE | | | | | | USEDINTERCHANGEABLY. | | | | | | THE MAGNITUDE OF THE | | | | | | REPORTED IGG LEVELS | | | | | | CANNOT BECORRELATED TO | | | | | | AN ENDPOINT | | | | | | TITER.Testing performed | | | | | | at [facility], [address] | | | | | | [place] | | | | | | [address] | | | | + + + + + + + + | Specimen | + + | Blood specimen | | (specimen) | + + + +---------+ + + | Performing | Address | City/State/Zipcode | Phone Number | | Organization | | | | + +---------+ + + | EXTERNAL LAB | | | | + +---------+ + + Cryoglobulin (10/26/2015 5:26 AM PST) + + + + + + | Component | Value | Ref Range | Performed | Pathologist | | | | | At | Signature | + + + + + + | CRYOGLOBULI | NEGATIVEComment: Testing | | EXTERNAL | | | N | performed at [facility], [address] | | LAB | | | | [place] | | | | | | [place] [address] | | | | + + + + + + | CRYOGLOBULI | NEGATIVEComment: Testing | | EXTERNAL | | | N 48H | performed at [facility], [address] | | LAB | | | | [place] | | | | | | [place] [address] | | | | + + + + + + | CRYOGLOBULI | NEGATIVEComment: Testing | | EXTERNAL | | | N 72H | performed at [facility], [address] | | LAB | | | | [address] [place] | | | | | | [place] [address] | | | | + + + + + + | CRYOGLOBULI | NEGATIVEComment: Testing | | EXTERNAL | | | N 7D | performed at [facility], [address] | | LAB | | | | [address] [facility] | | | | | | [place] [address] | | | | + + + + + + + + | Specimen | + + | Blood specimen | | (specimen) | + + + +---------+ + + | Performing | Address | City/State/Zipcode | Phone Number | | Organization | | | | + +---------+ + + | EXTERNAL LAB | | | | + +---------+ + + RPR Quant (10/26/2015 5:26 AM PST) + + + + + + | Component | Value | Ref Range | Performed | Pathologist | | | | | At | Signature | + + + + + + | Treponema | NON REACTIVEComment: | | EXTERNAL | | | Pallidum Ab | Testing performed at | | LAB | | | Total | [facility], [address], [place] | | | | | | [address] | | | | + + + + + + + + | Specimen | + + | Blood specimen | | (specimen) | + + + +---------+ + + | Performing | Address | City/State/Zipcode | Phone Number | | Organization | | | | + +---------+ + + | EXTERNAL LAB | | | | + +---------+ + + Antistreptolysin O, Quant (10/26/2015 5:26 AM PST) + + + + + + | Component | Value | Ref Range | Performed | Pathologist | | | | | At | Signature | + + + + + + | Anti | 120Comment: Testing | 0 - 250 IU/mL | EXTERNAL | | | Streptolysi | performed at [facility], [address] | | LAB | | | [address] | [address], | | | | | | [place] [address] | | | | + + + + + + + + | Specimen | + + | Blood specimen | | (specimen) | + + + +---------+ + + | Performing | Address | City/State/Zipcode | Phone Number | | Organization | | | | + +---------+ + + | EXTERNAL LAB | | | | + +---------+ + + CRYSTAL Profile, Reflex (10/26/2015 5:26 AM PST) + + + + + + | Component | Value | Ref Range | Performed | Pathologist | | | | | At | Signature | + + + + + + | CRYSTAL | NEGATIVEComment: A | | EXTERNAL | | | | MULTIPLEX SCREEN FOR 11 | | LAB | | | | AUTOANTIBODIES (DSDNA, | | | | | | SM, RIBOSOMAL | | | | | | P,CHROMATIN, CLASSIFICATION COUNSELOR, SM | | | | | | CLASSIFICATION COUNSELOR, SCL-70, CENTROMERE | | | | | | B, SSA, SSB AND ALAINA-1) | | | | | | WASPERFORMED AND NO | | | | | | AUTOANTIBODIES WERE | | | | | | DETECTED.Testing | | | | | | performed at [facility], [address] | | | | | | [place] | | | | | | [place] [address] | | | | + + + + + + | ANCA Screen | <1:20Comment: REFERENCE | | EXTERNAL | | | | RANGE: <1:20Testing | | LAB | | | | performed at [facility], [address] | | | | | | [place] | | | | | | [place] [address] | | | | + + + + + + | ANCA | 3Comment: NEGATIVE | Units | EXTERNAL | | | Proteinase | < 21WEAK | | LAB | | | 3 | TO MOD POS | | | | | | 21-30POSITIVE | | | | | | > 30PR3 | | | | | | ANTIBODY IS A MARKER FOR | | | | | | NATHALIA'S | | | | | | GRANULOMATOSIS AND IS | | | | | | RARELYDETECTED IN | | | | | | MICROSCOPIC | | | | | | POLYARTERITIS.THE | | | | | | QUANTITY OF PR3 ANTIBODY | | | | | | GENERALLY PARALLELS | | | | | | DISEASE ACTIVITY,WHERE | | | | | | AN INCREASE IN DISEASE | | | | | | IS ACCOMPANIED BY | | | | | | INCREASING VALUES OFPR3 | | | | | | ANTIBODY.ANTIBODY TO PR3 | | | | | | AN ELASTINOLYTIC NEURAL | | | | | | SERINE PROTEASE, | | | | | | ISRESPONSIBLE FOR THE | | | | | | CYTOPLASMIC PATTERN OF | | | | | | ANTI NEUTROPHIL | | | | | | CYTOPLASMICANTIBODIES.Te | | | | | | sting performed at [facility], | | | | | | [address] [place], | | | | | | [place] [address] | | | | + + + + + + | Myeloperoxi | 5Comment: NEGATIVE | Units | EXTERNAL | | | dase | < 21WEAK | | LAB | | | Antibody | TO MOD POS | | | | | | 21-30POSITIVE | | | | | | > 30ANTIBODY | | | | | | TO MPO IS ASSOCIATED | | | | | | WITH ORGAN LIMITED | | | | | | VASCULITIS | | | | | | INCLUDINGNECROTIZING AND | | | | | | CRESCENTIC | | | | | | GLOMERULONEPHRITIS.THIS | | | | | | ASSAY IS USEFUL IN | | | | | | CONFIRMING MPO SPECIFIC | | | | | | ANTIBODIES IN SERATHAT | | | | | | ARE POSITIVE FOR ANTI | | | | | | NEUTROPHIL CYTOPLASMIC | | | | | | ANTIBODIES OF | | | | | | THEPERINUCLEAR | | | | | | TYPE.TYPICALLY THE LEVEL | | | | | | OF MPO ANTIBODY | | | | | | PARALLELS DISEASE | | | | | | ACTIVITIES,WHERE | | | | | | INCREASING DISEASE | | | | | | ACTIVITY IS ASSOCIATED | | | | | | WITH INCREASING | | | | | | MPOANTIBODY | | | | | | LEVELS.Testing performed | | | | | | at [facility], [address] | | | | | | [place], [place] | | | | | | [address] | | | | + + + + + + + + | Specimen | + + | Blood specimen | | (specimen) | + + + +---------+ + + | Performing | Address | City/State/Zipcode | Phone Number | | Organization | | | | + +---------+ + + | EXTERNAL LAB | | | | + +---------+ + + PTT (10/26/2015 5:26 AM PST) + + + + + + | Component | Value | Ref Range | Performed | Pathologist | | | | | At | Signature | + + + + + + | aPTT, | 29Comment: Testing | 23 - 32 seconds | EXTERNAL | | | Patient | performed at [facility];[address] | | LAB | | | | [address];[place] | | | | | | [address] | | | | + + + + + + + + | Specimen | + + | Blood specimen | | (specimen) | + + + +---------+ + + | Performing | Address | City/State/Zipcode | Phone Number | | Organization | | | | + +---------+ + + | EXTERNAL LAB | | | | + +---------+ + + Sedimentation rate, automated (10/26/2015 5:26 AM PST) + + + + + + | Component | Value | Ref Range | Performed | Pathologist | | | | | At | Signature | + + + + + + | Sed Rate | 25 (H)Comment: Testing | 0 - 20 mm/Hr | EXTERNAL | | | | performed at [facility], [address] | | LAB | | | | [address], | | | | | | [place] [address] | | | | + + + + + + + + | Specimen | + + | Blood specimen | | (specimen) | + + + +---------+ + + | Performing | Address | City/State/Zipcode | Phone Number | | Organization | | | | + +---------+ + + | EXTERNAL LAB | | | | + +---------+ + + Protime INR (10/26/2015 5:26 AM PST) + + + + [...] | | | | | performed at [facility];[address] | | | | | | [address];[place], [place] | | | | | | [address] | | | | + + + [...] + +---------+ + + External Lab: CBC (10/26/2015 5:26 AM PST) + + +---- + + + | Component | Value | Ref Range | Performed | Pathologist | | | | | At | Signature | + + +---- + + + | WBC | 9.11Comment: Testing | 3.8 0 - 11.00 | EXTERNAL | | | | performed at [facility], [address] | K[address] | LAB | | | | [address], | | | | | | [place] [address] | | | | + + +---- + + + | Red Blood | 2.21 (L)Comment: Testing | 3.7 0 - 5.10 | EXTERNAL | | | Cells | performed at [facility], [address] | [address] | LAB | | | Counted | [address], | | | | | | [place] [address] | | | | + + +---- + + + | Hemoglobin | 5.7 (LL)Comment: RESULT | 11. 3 - 15.5 | EXTERNAL | | | | READ BACK BY: HUMERA MARTINEZ | g/d L | LAB | | | | AT 0648 ON 10/26/2015 | | | | | | SURG TH Testing | | | | | | performed at [facility], [address] | | | | | | [address] [employer], | | | | | | [place] [address] | | | | + + +---- + + + | Hematocrit, | 18.2 (LL)Comment: RESULT | 34. 0 - 46.0 % | EXTERNAL | | | POC | READ BACK BY: HUMERA Sutherland | ROLANDO | | | | MICHELLE AT 0648 ON 10/26/2015 | | | | | | SURG TH Testing | | | | | | performed at [facility], [address] | | | | | | [address], | | | | | | [place] [address] | | | | + + +---- + + + | MCV | 82.5Comment: Testing | 80. 0 - 100.0 fl | EXTERNAL | | | | performed at [facility], [address] | | LAB | | | | [address], | | | | | | [place] [address] | | | | + + +---- + + + | MCH | 25.7 (L)Comment: Testing | 27. 0 - 34.0 pg | EXTERNAL | | | | performed at [facility], [address] | LAB | | | | [address], | | | | | | [place] [address] | | | | + + +---- + + + | MCHC | 31.1 (L)Comment: Testing | 32. 0 - 35.5 | EXTERNAL | | | | performed at [facility], [address] | LAB | | | | [address], | | | | | | [place] [address] | | | | + + +---- + + + | RDW-CV | 46.4Comment: Testing | 37 - 53 fl | EXTERNAL | | | | performed at [facility], [address] | | LAB | | | | [address], | | | | | | [place] [address] | | | | + + +---- + + + | Platelet | 222Comment: Testing | 150 - 400 K/uL | EXTERNAL | | | Count | performed at [facility], [address] | | LAB | | | Plasma | [address], | | | | | | [place] [address] | | | | + + +---- + + + | MPV | 9.6Comment: Testing | fl | EXTERNAL | | | | performed at [facility], [address] | | LAB | | | | [address], | | | | | | [place] [address] | | | | + + +---- + + + | Differentia | MANUALComment: Testing | | EXTERNAL | | | l Type | performed at [facility], [address] | | LAB | | | | [address], | | | | | | [place] [address] | | | | + + +---- + + + | Segmented | 86Comment: Testing | % | EXTERNAL | | | Neutrophils | performed at [facility], [address] | | LAB | | | Manual | [address], | | | | | | [place] [address] | | | | + + +---- + + + | Lymphocytes | 9Comment: Testing | % | EXTERNAL | | | Manual | performed at [facility], [address] | | LAB | | | | [address], | | | | | | [place] [address] | | | | + + +---- + + + | Monocytes | 4Comment: Testing | % | EXTERNAL | | | Manual | performed at [facility], [address] | | LAB | | | | [address], | | | | | | [place] [address] | | | | + + +---- + + + | Eosinophils | 1Comment: Testing | % | EXTERNAL | | | Manual | performed at [facility], [address] | | LAB | | | | [address], | | | | | | [place] [address] | | | | + + +---- + + + | Absolute | 7.84 (H)Comment: Testing | 1.9 0 - 7.40 | EXTERNAL | | | Neutrophils | performed at [facility], [address] | [address] | LAB | | | | [address], | | | | | | [place] [address] | | | | + + +---- + + + | Absolute | 0.82 (L)Comment: Testing | 1.0 0 - 3.90 | EXTERNAL | | | Lymphocytes | performed at [facility], [address] | [address] | LAB | | | | [address], | | | | | | [place] [address] | | | | + + +---- + + + | Absolute | 0.36Comment: Testing | 0.0 0 - 0.80 | EXTERNAL | | | Monocytes | performed at [facility], [address] | K/u L | LAB | | | | [address], | | | | | | [place] [address] | | | | + + +---- + + + | Absolute | 0.09Comment: Testing | 0.0 0 - 0.50 | EXTERNAL | | | Eosinophils | performed at [facility], [address] | K/u L | LAB | | | | [address], | | | | | | [place] [address] | | | | + + +---- + + + | RBC | 1+Comment: | | EXTERNAL | | | Morphology | ANISO1+HYPO1+OVALONORMAL | | LAB | | | | PLT MORPHTesting | | | | | | performed at [facility], [address] | | | | | | [facility], | | | | | | [place] [address] | | | | | |OVALO | | | | | |NORMAL PLT MORPH | | | | | |Testing performed at [facility], [address] [facility], [place] [address] | | | | | | | | | | + + +---- + + + + + | Specimen | + + | Blood specimen | | (specimen) | + + + +---------+ + + | Performing | Address | City/State/Zipcode | Phone Number | | Organization | | | | + +---------+ + + | EXTERNAL LAB | | | | + +---------+ + + Hemoglobin A1C (10/26/2015 5:26 AM PST) + + + + + + | Component | Value | Ref Range | Performed | Pathologist | | | | | At | Signature | + + + + + + | Hemoglobin | 5.1Comment: The [place] | 4.0 - 6.0 % | EXTERNAL | | | A1c | Diabetes Association | | LAB | | | | considers a hemoglobin | | | | | | A1c result of <7.0% to | | | | | | be the goal of diabetic | | | | | | therapy. When results | | | | | | are consistently >8.0%, | | | | | | the ADA suggests | | | | | | reevaluation of the | | | | | | treatment regimen. The | | | | | | testing method used is | | | | | | certified traceable to | | | | | | the Diabetes Control and | | | | | | Complications Trial | | | | | | reference method.Testing | | | | | | performed at [facility], [address] | | | | | [address], | | | | | | [place] [address] | | | | + + + + + + | Glycohemogl | 100Comment: The ADA | mg/dL | EXTERNAL | | | obin | considers an eAG result | | LAB | | | (GHb),Total | of LT 154 mg/dL to be | | | | | | the goal of diabetic | | | | | | therapy. Estimated | | | | | | Average Glucose | | | | | | calculated from | | | | | | hemoglobin A1c by use of | | | | | | the ADA recommended | | | | | | formula.Testing | | | | | | performed at [facility], [address] | | | | | | [facility], | | | | | | [place] [address] | | | | + + + + + + + + | Specimen | + + | Blood specimen | | (specimen) | + + + +---------+ + + | Performing | Address | City/State/Zipcode | Phone Number | | Organization | | | | + +---------+ + + | EXTERNAL LAB | | | | + +---------+ + + CK Total (10/26/2015 5:26 AM PST) + + + + + + | Component | Value | Ref Range | Performed | Pathologist | | | | | At | Signature | + + + + + + | CK, Total | 59Comment: Testing | 30 - 240 U/L | EXTERNAL | | | | performed at [facility];[address] | | LAB | | | | [address];[place], [place] | | | | | | [address] | | | | + + + + + + + + | Specimen | + + | Blood specimen | | (specimen) | + + + +---------+ + + | Performing | Address | City/State/Zipcode | Phone Number | | Organization | | | | + +---------+ + + | EXTERNAL LAB | | | | + +---------+ + + Lipid Panel (10/26/2015 5:26 AM PST) + + + + + + | Component | Value | Ref Range | Performed | Pathologist | | | | | At | Signature | + + + + + + | Cholesterol | 125Comment: Testing | mg/dL | EXTERNAL | | | | performed at [facility], [address] | | LAB | | | | [address], | | | | | | [place] [address] | | | | + + + + + + | Triglycerid | 137Comment: Testing | mg/dL | EXTERNAL | | | es | performed at [facility], [address] | | LAB | | | | [address], | | | | | | [place] [address] | | | | + + + + + + | HDL | 36 (L)Comment: Testing | mg/dL | EXTERNAL | | | | performed at [facility], [address] | | LAB | | | | [address], | | | | | | [place] [address] | | | | + + + + + + | LDL, | 62Comment: Testing | mg/dL | EXTERNAL | | | Calculated | performed at [facility], [address] | | LAB | | | | [address], | | | | | | [place] [address] | | | | + + + [...] + +---------+ + + Basic Metabolic Panel (10/26/2015 5:26 AM PST) + + + + + + | Component | Value | Ref Range | Performed | Pathologist | | | | | At | Signature | + + + + + + | Na | 139Comment: Testing | 135 - 143 | EXTERNAL | | | | performed at [facility], [address] | mmol/L | LAB | | | | [address], | | | | | | [place] [address] | | | | + + + + + + | K | 4.7Comment: Testing | 3.5 - 4.9 | EXTERNAL | | | | performed at [facility], [address] | mmol/L | LAB | | | | [address], | | | | | | [place] [address] | | | | + + + + + + | Cl | 109Comment: Testing | 99 - 109 mmol/L | EXTERNAL | | | | performed at [facility], [address] | | LAB | | | | [address], | | | | | | [place] [address] | | | | + + + + + + | CO2 | 13 (LL)Comment: RESULT | 23 - 32 mmol/L | EXTERNAL | | | | READ BACK BY: CHRISTINA | | LAB | | | | K @ MARY 7:08 10/26/15 | | | | | | DHTesting performed at | | | | | | [facility], [address] | | | | | | [place] | | | | | | [address] | | | | + + + + + + | Anion Gap | 22 (H)Comment: Testing | 5 - 20 mmol/L | EXTERNAL | | | | performed at [facility], [address] | | LAB | | | | [address], | | | | | | [place] [address] | | | | + + + + + + | Glucose, | 90Comment: Testing | 65 - 99 mg/dL | EXTERNAL | | | Fasting | performed at [facility], [address] | | LAB | | | | [address], | | | | | | [place] [address] | | | | + + + + + + | BUN | 103 (H)Comment: Testing | 8 - 25 mg/dL | EXTERNAL | | | | performed at [facility], [address] | | LAB | | | | [address], | | | | | | [place] [address] | | | | + + + + + + | Creatinine | 15.48 (H)Comment: | 0.50 - 1.00 | EXTERNAL | | | | Testing performed at | mg/dL | LAB | | | | [facility], [address] | | | | | | [place] | | | | | | [address] | | | | + + + + + + | BUN/Creatin | 7Comment: Testing | | EXTERNAL | | | ine Ratio | performed at [facility], [address] | | LAB | | | | [address], | | | | | | [place] [address] | | | | + + + + + + | Calcium | 6.9 (L)Comment: Testing | 8.5 - 10.5 | EXTERNAL | | | | performed at [facility], [address] | mg/dL | LAB | | | | [address], | | | | | | [place] [address] | | | | + + + [...] | | | | | | at [facility], [address] | | | | | | [address], | | | | | | [place] [address] | | | | + + + + + + + + | Specimen | + + | Blood specimen | | (specimen) | + + + +---------+ + + | Performing | Address | City/State/Zipcode | Phone Number | | Organization | | | | + +---------+ + + | EXTERNAL LAB | | | | + +---------+ + + Myoglobin, Urine (10/26/2015 2:33 AM PST) + + + + + + | Component | Value | Ref Range | Performed | Pathologist | | | | | At | Signature | + + + + + + | Myoglobin | <1Comment: INTERPRETIVE | 0 - 1 mg/L | EXTERNAL | | | Urine | INFORMATION: | | LAB | | | | MYOGLOBIN, | | | | | | URINEPATIENTS WITH URINE | | | | | | MYOGLOBIN GREATER THAN | | | | | | 15 MG/L ARE AT RISK | | | | | | OFACUTE RENAL FAILURE. | | | | | | USUAL RESULTS ARE LESS | | | | | | THAN 1 MG/L. | | | | | | RESULTSBETWEEN 1 AND 15 | | | | | | MG/L ARE ASSOCIATED WITH | | | | | | VIGOROUS | | | | | | EXERCISE,MYOCARDIAL | | | | | | INFARCTION, MILD MUSCLE | | | | | | INJURY AND OTHER | | | | | | CONDITIONS.TEST | | | | | | DEVELOPED AND | | | | | | CHARACTERISTICS | | | | | | DETERMINED BY [facility] | | | | | | LAB[facility]ATORIES.SEE | | | | | | COMPLIANCE STATEMENT B: | | | | | | BoardProspects/CSTesting | | | | | | performed at [facility], [address] | | | | | [address] | | | | | | [facility] [address] | | | | + + + + + + + + | Specimen | + + | | + + + +---------+ + + | Performing | Address | City/State/Zipcode | Phone Number | | Organization | | | | + +---------+ + + | EXTERNAL LAB | | | | + +---------+ + + Urea Nitrogen, Urine, Random (10/26/2015 2:33 AM PST) + + + + + + | Component | Value | Ref Range | Performed | Pathologist | | | | | At | Signature | + + + + + + | Urea | 362.0Comment: Testing | mg/dL | EXTERNAL | | | Nitrogen, | performed at [facility], [address] | | LAB | | | Urine | [address], | | | | | | [place] [address] | | | | + + + + + + + + | Specimen | + + | | + + + +---------+ + + | Performing | Address | City/State/Zipcode | Phone Number | | Organization | | | | + +---------+ + + | EXTERNAL LAB | | | | + +---------+ + + Eosinophil Smear, Urine (10/26/2015 2:33 AM PST) + + + + + + | Component | Value | Ref Range | Performed | Pathologist | | | | | At | Signature | + + + + + + | Eosinophils | NO EOSINOPHILS | % | EXTERNAL | | | , Urine | SEENComment: Testing | | LAB | | | | performed at [facility], [address] | | | | | | [address] [facility], | | | | | | [place] [address] | | | | + + + + + + + + | Specimen | + + | | + + + +---------+ + + | Performing | Address | City/State/Zipcode | Phone Number | | Organization | | | | + +---------+ + + | EXTERNAL LAB | | | | + +---------+ + + Sodium, Urine, Random (10/26/2015 2:33 AM PST) + + + + + + | Component | Value | Ref Range | Performed | Pathologist | | | | | At | Signature | + + + + + + | Sodium, | 69 (L)Comment: Testing | 90 - 104 mmol/L | EXTERNAL | | | Urine | performed at [facility], [address] | | LAB | | | Random | [address], | | | | | | [place] [address] | | | | + + + + + + + + | Specimen | + + | Urine specimen | | (specimen) | + + + +---------+ + + | Performing | Address | City/State/Zipcode | Phone Number | | Organization | | | | + +---------+ + + | EXTERNAL LAB | | | | + +---------+ + + Myoglobin, Urine (10/26/2015 2:33 AM PST) + + + + + + | Component | Value | Ref Range | Performed | Pathologist | | | | | At | Signature | + + + + + + | Myoglobin | MYOGLOBIN SCREEN | | EXTERNAL | | | | POSITIVE, SENT TO | | LAB | | | | REFERENCE LAB FOR | | | | | | CONFIRMATIONComment: | | | | | | Testing performed at | | | | | | [facility];[address];[place] [address] | | | | + + + + + + + + | Specimen | + + | Urine specimen | | (specimen) | + + + +---------+ + + | Performing | Address | City/State/Zipcode | Phone Number | | Organization | | | | + +---------+ + + | EXTERNAL LAB | | | | + +---------+ + + Creatinine, Urine, Random (10/26/2015 2:33 AM PST) + + + + + + | Component | Value | Ref Range | Performed | Pathologist | | | | | At | Signature | + + + + + + | Creatinine, | 95.6Comment: Testing | mg/dL | EXTERNAL | | | Urine | performed at [facility], [address] | | LAB | | | | [address], | | | | | | [place] [address] | | | | + + + + + + + + | Specimen | + + | Urine specimen | | (specimen) | + + + +---------+ + + | Performing | Address | City/State/Zipcode | Phone Number | | Organization | | | | + +---------+ + + | EXTERNAL LAB | | | | + +---------+ + + Tissue Request For Pathology (10/26/2015 12:00 AM PST) + + | Specimen | + + | Soft tissue sample | | (specimen) | + + + + + | Narrative | Performed At | + + + | THIS IS AN ADDENDUM REPORT SPECIMEN(S): A KIDNEY BIOPSY | EXTERNAL LAB | | SPECIMEN SOURCE: A. KIDNEY BIOPSY CLINICAL HISTORY: The patient | | | is a 35-year-old female who recently presented to medical care with a | | | chief complaint of itching. The current medial problems include: | | | obesity and tobacco use. Laboratory studies reveal the serum | | | creatinine of 17. Urinalysis reveals large blood and 100 mg per/dL | | | protein. Her serum albumin is depressed at 3,3 and hemoglobin is quite | | | low at 6.7. Her blood pressure on evaluation was 144/85. FINAL | | | PATHOLOGIC DIAGNOSIS: Kidney, biopsy - Less than optimal tissue | | | sampling for histologic examination and inadequate tissue for | | | immunofluorescence studies. - Global glomerulosclerosis (6). | | | - Acute tubular injury with desquamated cell casts. - | | | Medullary interstitial nephritis. - Tubular atrophy and | | | interstitial fibrosis (70% of a limited cortical sampling). COMMENT: | | | The examined tissue is predominantly renal medulla with only a small | | | area of cortex visible in paraffin section, and none for | | | immunofluorescence studies. The cortical tissue examined is sclerotic. | | | In the medulla we find some interstitial inflammation and acute | | | tubular injury which could be due to a variety of causes, including | | | immune mediated kidney disease, vasculitides, toxicity and | | | hypersensitivity. Electron microscopy studies are pending at the | | | time of this report. Those results will be forwarded in an addendum. | | | Adonay Jung MD TECHNICAL NOTE: This case was seen and | | | processed at [facility] in [place], [place]. | | | (Report # [id number]). GROSS DESCRIPTION: The specimen is received in | | | formalin labeled with the patient's name and designated "Kidney | | | biopsy. SENT TO [facility]." The kidney biopsy was performed by | | | the radiologist. The pathologist performed a consultation during the | | | biopsy procedure on this case. "Received fresh are 3 cores of | | | tissue. The tissue is examined under a dissecting microscope for the | | | presence of glomeruli. The results are communicated to the physician | | | performing the biopsy". - Intraoperative Findings (adequacy | | | assessment): Pass # 1 | | | | | | Some Glomeruli, Appears Adequate Pass # 2 | | | | | | Very few Glomeruli Pass # 3 | | | | | | Very few Glomeruli [facility] GROSS DESCRIPTION: Three | | | specimens are received, each labeled and designated "Go[place], kidney | | | [id number]". Specimen received in formalin consists of three 1.2 cm in | | | length cores of tissue. Submitted for light microscopy in "A1". | | | Specimen received in [place] solution consists of a 0.7 cm in length core | | | of tissue. Entirely submitted for immunofluorescence studies. | | | Specimen received in glutaraldehyde consists of a 0.2 cm in length | | | core of tissue. Entirely submitted for electron microscopy. | | | MICROSCOPIC EXAMINATION: Three core segments of renal tissue are | | | examined in serial sections using PAS, trichrome, and Smalls | | | methenamine silver, in addition to HE stains. The tissue is | | | predominantly medulla; however, cortex is present on a single core, | | | approximately 20% of the core. Six glomeruli are found, of which 5 are | | | globally sclerotic remnants. The sixth is a partial glomerulus at a | | | core edge showing prominent mesangial expansion. No basement membrane | | | abnormalities are detected on Smalls stain in the patent capillary | | | loops. No evidence of crescents is identified in the globally | | | sclerotic glomeruli. The cortex shows diffuse interstitial expansion | | | with fibrosis and associated mixed phagocytic infiltrates with small | | | lymphocytes predominating. There is extensive tubular atrophy. An | | | interlobular artery identified at the deep cortex shows mild intimal | | | fibroplasia. Residual tubules within the cortex and tubules forming | | | the loops of Henle show acute tubular injury and repair. Scattered | | | tubules contain desquamated cell debris. A few of these have a coarse | | | granular character reminiscent of myoglobin casts, but in this | | | setting they are likely cell debris. A myoglobin immunohistochemical | | | stain has been requested. No tubular inflammation or crystalline | | | deposits are found. There are patchy mixed inflammatory infiltrates in | | | the medulla and similar coarsely granular casts are [...] studies are not | | | performed. STAINS PERFORMED: Kidney Bx with light, immunofl, | | | and EM. Frozen HE x 6, Smalls x 1, Periodic acid Frances x 1, Level 1 | | | (HE) x 1, Level 2 (HE) x 1, Level 3 (HE) x 1, Trichrome-Routine x 1, | | | Thick Sections x9, Unspecified Stain, Sendout, IHC x 1. PERFORMING | | | LABORATORY: Professional interpretation and technical preparation was | | | performed by LEAF[facility], [facility], [facility] | | | [place] [address] (Blanching Machine Operator: Jose C | | | Bianka Weir; [facility]#: [id number]). COMMENT: Ultrastructural | | | examination is limited due to the extensive sclerosis. However, the | | | EM findings make a primary immune mediated glomerular disease | | | unlikely. Adonay Jung M.D. DISCUSSION: Two | | | plastic embedded tissue blocks are examined in multiple level sections | | | to look for patent glomeruli for study. At least three globally | | | sclerotic glomeruli are identified in level sections. One | | | glomerulus contains a few intact capillary loops and these areas are | | | thin sectioned for ultrastructural examination. On electron | | | microscopy, the intact capillary loops show a basement membrane of | | | uniform and normal thickness and composition. No immune deposits are | | | seen with the patent capillary miller. Dense osmophilic material is | | | noted within sclerotic segments, most suggestive of hyaline | | | deposition. There is no evidence of glomerular basement membrane | | | breaks or fibrin tactoids. The visceral epithelial foot processes | | | are largely effaced along the residual patent capillaries, with | | | associated microvillous alteration of the epithelial cell cytoplasm. | | | ADDENDUM PATHOLOGIC DIAGNOSIS: ELECTRON MICROSCOPY Electron | | | microscopy diagnoses: - Global and segmental glomerular | | | sclerosis. - No evidence of immune deposits or basement membrane | | | abnormality in scant residual patent capillary loops. Diagnostician: | | | Bharat Cartwright MD Pathologist Diagnostician: Jose C Weir MD | | | Pathologist Electronically Signed 11/08/2015 | | + + + + +---------+ + + | Performing | Address | City/State/Zipcode | Phone Number | | Organization | | | | + +---------+ + + | EXTERNAL LAB | | | | + +---------+ + + US Renal Limited (10/25/2015 6:17 PM PST) + + | Specimen | + + | | + + + + + | Impressions | Performed At | + + + | 1. Normal kidneys and bladder. | | + + + + + + | Narrative | Performed At | + + + | [facility] REEVES US KIDNEYS AND BLADDER 10/25/2015 6:17 PM | | | History: 35 years. Female. Acute renal failure. Extensive | | | body rash. Technique: A high-resolution grayscale duplex | | | transducer with color and pulsed Doppler capability was utilized for | | | imaging, with zepeda scale and color image recording in multiple | | | anatomical planes. Comparison examinations: None. Findings: | | | The right kidney measures 11.3 x 4.3 x 4.0 cm.. No hydronephrosis | | | visualized. Cortical thickness is normal throughout the kidney. | | | No obvious right renal mass or stone visualized. The left kidney | | | measures 9.9 x 5.3 x 4.4 cm.. No hydronephrosis visualized. The | | | contour and cortical thickness of the left kidney are normal. No | | | obvious left renal mass or stone visualized. The estimated | | | filled urinary bladder volume is 106 cc. The bladder wall is smooth, | | | without mass. Bilateral ureteral jets are visualized, indicating | | | patency of the ureters. Estimated post void bladder volume is 0 cc. | | | | | + + + + + | Procedure Note | + + | Endy, Rad Conversion - 06/25/2019 11:42 AM PDT RAMONA MUSA KIDNEYS AND | | [id number]/25/2015 6:17 PM History: 35 years. Female. Acute renal failure. Extensive | | body rash. Technique: A high-resolution grayscale duplex transducer with color and | | pulsed Doppler capability was utilized for imaging, with zepeda scale and color image | | recording in multiple anatomical planes. Comparison examinations: None. Findings: The | | right kidney measures 11.3 x 4.3 x 4.0 cm.. No hydronephrosis visualized. Cortical | | thickness is normal throughout the kidney. No obvious right renal mass or stone | | visualized. The left kidney measures 9.9 x 5.3 x 4.4 cm.. No hydronephrosis visualized. | | The contour and cortical thickness of the left kidney are normal. No obvious left | | renal mass or stone visualized. The estimated filled urinary bladder volume is 106 cc. | | The bladder wall is smooth, without mass. Bilateral ureteral jets are visualized, | | indicating patency of the ureters. Estimated post void bladder volume is 0 cc. | | IMPRESSION: 1. Normal kidneys and bladder. | |The estimated filled urinary bladder volume is 106 cc. The bladder wall is smooth, without mass. Bilateral ureteral jets are visualized, indicating patency of the ureters. Estimate d post void bladder volume is 0 cc. | | | | | |IMPRESSION: | |1. Normal kidneys and bladder. | | | | | + + Culture, Blood, 2nd Specimen (10/25/2015 4:58 PM PST) + + | Specimen | + + | Blood specimen | | (specimen) | + + + + + | Narrative | Performed At | + + + | Specimen Description BLOOD SPECIAL | EXTERNAL LAB | | REQUESTS RT HAND | | | Testing performed at [facility];[address] | | [address];[place] [address] CULTURE | | | NO GROWTH 6 DAYS | | | Testing performed at [facility], [address], [place], [place] | | | [address] | | + + + + +---------+ + + | Performing | Address | City/State/Zipcode | Phone Number | | Organization | | | | + +---------+ + + | EXTERNAL LAB | | | | + +---------+ + + Culture, Blood (10/25/2015 4:38 PM PST) + + | Specimen | + + | Blood specimen | | (specimen) | + + + + + | Narrative | Performed At | + + + | Specimen Description BLOOD SPECIAL | EXTERNAL LAB | | REQUESTS LT AC | | | Testing performed at [facility];[address] | | | [address];[place] [address] CULTURE | | | NO GROWTH 6 DAYS | | | Testing performed at [facility], [address] [facility], [place], [place] | | | [address] | | + + + + +---------+ + + | Performing | Address | City/State/Zipcode | Phone Number | | Organization | | | | + +---------+ + + | EXTERNAL LAB | | | | + +---------+ + + Type and Screen (10/25/2015 2:15 PM PST) + + + + + + | Component | Value | Ref Range | Performed | Pathologist | | | | | At | Signature | + + + + + + | ABO Rh | A POSITIVE | | EXTERNAL | | | | | | LAB | | + + + + + + | Antibody | NEGATIVE | | EXTERNAL | | | Screen | | | LAB | | + + + + + + | BB BAND | [id number] | | EXTERNAL | | | | | | LAB | | + + + + + + | UNIT NUMBER | [id number] | | EXTERNAL | | | | | | LAB | | + + + + + + | Product | LEUKODEPLETED PC | | EXTERNAL | | | Code | | | LAB | | + + + + + + | Unit | 00 | | EXTERNAL | | | Division | | | LAB | | + + + + + + | Unit Status | ISSUED,FINAL | | EXTERNAL | | | | | | LAB | | + + + + + + | Transfusion | OK TO TRANSFUSE | | EXTERNAL | | | Status | | | LAB | | + + + + + + | CROSSMATCH | COMPATIBLE | | EXTERNAL | | | RESULT | | | LAB | | + + + + + + | UNIT NUMBER | [id number] | | EXTERNAL | | | | | | LAB | | + + + + + + | UNIT NUMBER | Testing performed at | | EXTERNAL | | | | [facility];[address] | | LAB | | | | [address];[place] [address] | | | | + + + + + + | Product | LEUKODEPLETED PCTesting | | EXTERNAL | | | Code | performed at [facility];[address] | | LAB | | | | [address];[place] | | | | | | [address] | | | | + + + + + + | Unit | 00Testing performed at | | EXTERNAL | | | Division | [facility];[address] | | LAB | | | | [address];[place] [address] | | | | + + + + + + | Unit Status | ISSUED,FINALTesting | | EXTERNAL | | | | performed at [facility];[address] | | LAB | | | | [address];[place] | | | | | | [address] | | | | + + + + + + | Transfusion | OK TO TRANSFUSETesting | | EXTERNAL | | | Status | performed at [facility];[address] | | LAB | | | | [address];[place] | | | | | | [address] | | | | + + + + + + | CROSSMATCH | COMPATIBLETesting | | EXTERNAL | | | RESULT | performed at [facility];[address] | | LAB | | | | [address];[place] | | | | | | [address] | | | | + + + + + + + + | Specimen | + + | Blood specimen | | (specimen) | + + + +---------+ + + | Performing | Address | City/State/Zipcode | Phone Number | | Organization | | | | + +---------+ + + | EXTERNAL LAB | | | | + +---------+ + + PTT (10/25/2015 2:15 PM PST) + + + + + + | Component | Value | Ref Range | Performed | Pathologist | | | | | At | Signature | + + + + + + | aPTT, | 28Comment: Testing | 23 - 32 seconds | EXTERNAL | | | Patient | performed at [facility];[address] | | LAB | | | | [address];[place] | | | | | | [address] | | | | + + + + + + + + | Specimen | + + | Blood specimen | | (specimen) | + + + +---------+ + + | Performing | Address | City/State/Zipcode | Phone Number | | Organization | | | | + +---------+ + + | EXTERNAL LAB | | | | + +---------+ + + Protime INR (10/25/2015 2:15 PM PST) + + + + + + | Component | Value | Ref Range | Performed | Pathologist | | | | | At | Signature | + + + + + + | INR | 1.0Comment: REFERENCE | | EXTERNAL | | | [...] | | | | | performed at [facility] | | | | | | [address];[place], [place] | | | | | | [address] | | | | + + + [...] + +---------+ + + External Lab: CBC (10/25/2015 2:15 PM PST) + + + + + + | Component | Value | Ref Range | Performed | Pathologist | | | | | At | Signature | + + + + + + | WBC | 11.42 (H)Comment: | 3.80 - 11.00 | EXTERNAL | | | | Testing performed at | K/uL | LAB | | | | [facility];[address] | | | | [address];[place] [address] | | | | + + + + + + | Red Blood | 2.69 (L)Comment: Testing | 3.70 - 5.10 | EXTERNAL | | | Cells | performed at [facility];[address] | M/uL | LAB | | | Counted | [address];[place] | | | | | | [address] | | | | + + + + + + | Hemoglobin | 6.7 (LL)Comment: CALLED | 11.3 - 15.5 | EXTERNAL | | | | PHYSICIANREAD BACK | g/dL | LAB | | | | RESULTS VERIFIEDDR LATER | | | | | | AT 1447 JGRTesting | | | | | | performed at [facility];[address] | | | | | | [address];[place] | | | | | | [address] | | | | + + + + + + | Hematocrit, | 22.3 (L)Comment: Testing | 34.0 - 46.0 % | EXTERNAL | | | POC | performed at [facility];[address] | | LAB | | | | [address];[place] | | | | | | [address] | | | | + + + + + + | MCV | 82.9Comment: Testing | 80.0 - 100.0 fl | EXTERNAL | | | | performed at [facility];[address] | | LAB | | | | [address];[place] | | | | | | [address] | | | | + + + + + + | MCH | 25.0 (L)Comment: Testing | 27.0 - 34.0 pg | EXTERNAL | | | | performed at [facility];[address] | | LAB | | | | [address];[place] | | | | | | [address] | | | | + + + + + + | MCHC | 30.2 (L)Comment: Testing | 32.0 - 35.5 | EXTERNAL | | | | performed at [facility];[address] | g/dL | LAB | | | | [address];[place] | | | | | | [address] | | | | + + + + + + | RDW-CV | 44.6Comment: Testing | 37 - 53 fl | EXTERNAL | | | | performed at [facility];[address] | | LAB | | | | [address];[place] | | | | | | [address] | | | | + + + + + + | Platelet | 253Comment: Testing | 150 - 400 K/uL | EXTERNAL | | | Count | performed at [facility];[address] | | LAB | | | Plasma | [address];[place] | | | | | | [address] | | | | + + + + + + | MPV | 9.0Comment: Testing | fl | EXTERNAL | | | | performed at [facility];[address] | | LAB | | | | [address];[place] | | | | | | [address] | | | | + + + + + + | Differentia | MANUALComment: Testing | | EXTERNAL | | | l Type | performed at [facility];[address] | | LAB | | | | [address];[place] | | | | | | [address] | | | | + + + + + + | Segmented | 96Comment: Testing | % | EXTERNAL | | | Neutrophils | performed at [facility];[address] | | LAB | | | Manual | [address];[place] | | | | | | [address] | | | | + + + + + + | Lymphocytes | 4Comment: Testing | % | EXTERNAL | | | Manual | performed at [facility];[address] | | LAB | | | | [address];[place] | | | | | | [address] | | | | + + + + + + | Absolute | 10.96 (H)Comment: | 1.90 - 7.40 | EXTERNAL | | | Neutrophils | Testing performed at | K/uL | LAB | | | | [facility];[address] | | | | | [address];[place] [address] | | | | + + + + + + | Absolute | 0.46 (L)Comment: Testing | 1.00 - 3.90 | EXTERNAL | | | Lymphocytes | performed at [facility];[address] | K/uL | LAB | | | | [address];[place] | | | | | | [address] | | | | + + + + + + | Platelet | ADEQUATEComment: Testing | | EXTERNAL | | | Estimate | performed at [facility];[address] | | LAB | | | | [address];[place] | | | | | | [address] | | | | + + + + + + | RBC | 2+Comment: | | EXTERNAL | | | Morphology | HYPO1+PLATELET | | LAB | | | | ANISOCYTOSISTesting | | | | | | performed at [facility];[address] | | | | | | [address];[place] | | | | | | [address] | | | | | | | [...] + +---------+ + + Comprehensive Metabolic Panel (10/25/2015 2:15 PM PST) + + + + + + | Component | Value | Ref Range | Performed | Pathologist | | | | | At | Signature | + + + + + + | Na | 137Comment: Testing | 135 - 143 | EXTERNAL | | | | performed at [facility];[address] | mmol/L | LAB | | | | [address];[place] | | | | | | [address] | | | | + + + + + + | K | 4.8Comment: Testing | 3.5 - 4.9 | EXTERNAL | | | | performed at [facility];[address] | mmol/L | LAB | | | | [address];[place] | | | | | | [address] | | | | + + + + + + | Cl | 106Comment: Testing | 99 - 109 mmol/L | EXTERNAL | | | | performed at [facility];[address] | | LAB | | | | [address];[place] | | | | | | [address] | | | | + + + + + + | CO2 | 16 (L)Comment: Testing | 23 - 32 mmol/L | EXTERNAL | | | | performed at [facility];[address] | | LAB | | | | [address];[place] | | | | | | [address] | | | | + + + + + + | Anion Gap | 20Comment: Testing | 5 - 20 mmol/L | EXTERNAL | | | | performed at [facility];[address] | | LAB | | | | [address];[place] | | | | | | [address] | | | | + + + + + + | Glucose, | 150 (H)Comment: Testing | 65 - 99 mg/dL | EXTERNAL | | | Fasting | performed at [facility];[address] | | LAB | | | | [address];[place] | | | | | | [address] | | | | + + + + + + | BUN | 99 (H)Comment: Testing | 8 - 25 mg/dL | EXTERNAL | | | | performed at [facility];[address] | | LAB | | | | [address];[place] | | | | | | [address] | | | | + + + + + + | Creatinine | 17 (H)Comment: Testing | 0.50 - 1.00 | EXTERNAL | | | | performed at [facility];[address] | mg/dL | LAB | | | | [address];[place] | | | | | | [address] | | | | + + + + + + | BUN/Creatin | 6Comment: Testing | | EXTERNAL | | | ine Ratio | performed at [facility];[address] | | LAB | | | | [address];[place] | | | | | | [address] | | | | + + + + + + | Calcium | 6.9 (L)Comment: Testing | 8.5 - 10.5 | EXTERNAL | | | | performed at [facility];[address] | mg/dL | LAB | | | | [address];[place] | | | | | | [address] | | | | + + + + + + | Protein, | 7.9Comment: Testing | 6.3 - 8.2 g/dL | EXTERNAL | | | Total | performed at [facility];[address] | | LAB | | | | [address];[place] | | | | | | [address] | | | | + + + + + + | Albumin | 3.3 (L)Comment: Testing | 3.6 - 5.0 g/dL | EXTERNAL | | | | performed at [facility];[address] | | LAB | | | | [address];[place] | | | | | | [address] | | | | + + + + + + | Globulin | 4.6Comment: Testing | 1.3 - 4.9 g/dL | EXTERNAL | | | | performed at [facility];[address] | | LAB | | | | [address];[place] | | | | | | [address] | | | | + + + + + + | A/G Ratio | 0.7 (L)Comment: Testing | 1.0 - 2.4 | EXTERNAL | | | | performed at [facility];[address] | | LAB | | | | [address];[place] | | | | | | [address] | | | | + + + + + + | Bilirubin | 0.3Comment: Testing | 0.1 - 1.5 mg/dL | EXTERNAL | | | Total | performed at [facility];[address] | | LAB | | | | [address];[place] | | | | | | [address] | | | | + + + + + + | ALP, | 76Comment: Testing | 35 - 115 U/L | EXTERNAL | | | External | performed at [facility];[address] | | LAB | | | | [address];[place] | | | | | | [address] | | | | + + + + + + | AST | 11Comment: Testing | 10 - 45 U/L | EXTERNAL | | | | performed at [facility];[address] | | LAB | | | | [address];[place] | | | | | | [address] | | | | + + + + + + | ALT | 15Comment: Testing | 10 - 65 U/L | EXTERNAL | | | | performed at [facility];[address] | | LAB | | | | [address];[place] | | | | | | [address] | | | | + + + [...] | | | | | | at [facility];[address] [place] [address] | | | | | | [facility];[place] [address] | | | | + + + + + + + + | Specimen | + + | Blood specimen | | (specimen) | + + + +---------+ + + | Performing | Address | City/State/Zipcode | Phone Number | | Organization | | | | + +---------+ + + | EXTERNAL LAB | | | | + +---------+ + + Urinalysis, Reflex Microscopic and/or Culture (10/25/2015 1:30 PM PST) + + + + + + | Component | Value | Ref Range | Performed | Pathologist | | | | | At | Signature | + + + + + + | Color | YELLOWComment: Testing | | EXTERNAL | | | | performed at [facility];[address] | | LAB | | | | [address];[place] | | | | | | [address] | | | | + + + + + + | Clarity | HAZYComment: Testing | | EXTERNAL | | | | performed at [facility];[address] | | LAB | | | | [address];[place] | | | | | | [address] | | | | + + + + + + | Specific | 1.011Comment: Testing | 1.002 - 1.030 | EXTERNAL | | | [place], | performed at [facility];[address] | | LAB | | | Urine | [address];[place] | | | | | | [address] | | | | + + + + + + | Leukocyte | TRACE (A)Comment: | | EXTERNAL | | | Esterase, | Testing performed at | | LAB | | | Urine | [facility];[address];[place] [address] | | | | + + + + + + | Nitrite, | NEGATIVEComment: Testing | | EXTERNAL | | | Urine | performed at [facility];[address] | | LAB | | | | [address];[place] | | | | | | [address] | | | | + + + + + + | Urobilinoge | NORMALComment: Testing | mg/dL | EXTERNAL | | | n, Urine | performed at [facility];[address] | | LAB | | | | [address];[place] | | | | | | [address] | | | | + + + + + + | Protein, | 100 (A)Comment: Testing | mg/dL | EXTERNAL | | | Urine | performed at [facility];[address] | | LAB | | | | [address];[place] | | | | | | [address] | | | | + + + + + + | pH, Urine | 5.0Comment: Testing | 5.0 - 8.0 | EXTERNAL | | | | performed at [facility];[address] | | LAB | | | | [address];[place] | | | | | | [address] | | | | + + + + + + | Blood, | LARGE (A)Comment: | | EXTERNAL | | | Urine | Testing performed at | | LAB | | | | [facility];[address] | | | | | | [address];[place] [address] | | | | + + + + + + | Ketones | NEGATIVEComment: Testing | mg/dL | EXTERNAL | | | | performed at [facility];[address] | | LAB | | | | [address];[place] | | | | | | [address] | | | | + + + + + + | Bilirubin, | NEGATIVEComment: Testing | | EXTERNAL | | | Urine | performed at [facility];[address] | | LAB | | | | [address];[place] | | | | | | [address] | | | | + + + + + + | Glucose, | 50 (A)Comment: Testing | mg/dL | EXTERNAL | | | Urine | performed at [facility];[address] | | LAB | | | | [address];[place] | | | | | | [address] | | | | + + + + + + | WBC, UA | 26-49Comment: Testing | 0 - 5 /hpf | EXTERNAL | | | | performed at [facility];[address] | | LAB | | | | [address];[place] | | | | | | [address] | | | | + + + + + + | RBC, UA | >100Comment: Testing | 0 - 5 /hpf | EXTERNAL | | | | performed at [facility];[address] | | LAB | | | | [address];[place] | | | | | | [address] | | | | + + + + + + | Bacteria, | 4+ (A)Comment: Testing | | EXTERNAL | | | UA | performed at [facility];[address] | | LAB | | | | [address];[place] | | | | | | [address] | | | | + + + + + + | Epithelial | 16-25Comment: Testing | /lpf | EXTERNAL | | | Cells | performed at [facility];[address] | | LAB | | | | [address];[place] | | | | | | [address] | | | | + + + + + + | Mucus, | 1+Comment: Testing | | EXTERNAL | | | Urine | performed at [facility];[address] | | LAB | | | | [address];[place] | | | | | | [address] | | | | + + + + + + | AMORPHOUS | 1+Comment: Testing | | EXTERNAL | | | CRYSTAL | performed at [facility];[address] | | LAB | | | | [address];[place] | | | | | | [address] | | | | + + + + + + + + | Specimen | + + | | + + + +---------+ + + | Performing | Address | City/State/Zipcode | Phone Number | | Organization | | | | + +---------+ + + | EXTERNAL LAB | | | | + +---------+ + + Culture, Urine (10/25/2015 1:30 PM PST) + + | Specimen | + + | | + + + + + | Narrative | Performed At | + + + | Specimen Description URINE, COLLECTION NOT | EXTERNAL LAB | | GIVEN CULTURE >100,000 | | | CFU/ML KLEBSIELLA | | | PNEUMONIAEAbnormal | | | Testing performed at [facility], [address], [place] | | | [address] Suscepibility for - KLEBSIELLA PNEUMONIAE Ampicillin | | | RESISTANT Resistant Ampicillin + Sulbactam | | | SUSCEPTIBLESensitive Cefepime | | | SUSCEPTIBLESensitive Cefoxitin | | | SUSCEPTIBLESensitive Ceftazidime | | | SUSCEPTIBLESensitive Ceftriaxone | | | SUSCEPTIBLESensitive Ciprofloxacin | | | SUSCEPTIBLESensitive Gentamicin | | | SUSCEPTIBLESensitive Levofloxacin | | | SUSCEPTIBLESensitive Nitrofurantoin | | | SUSCEPTIBLESensitive Piperacillin + Tazobactam | | | SUSCEPTIBLESensitive Tobramycin | | | SUSCEPTIBLESensitive Trimethoprim + | | | SulfamethoxazoleSUSCEPTIBLESensitive | | + + + + +---------+ + + | Performing | Address | City/State/Zipcode | Phone Number | | Organization | | | | + +---------+ + + | EXTERNAL LAB | | | | + +---------+ + + documented in this encounter Visit Diagnoses + + | Diagnosis | + + | Renal failure Renal failure, unspecified | + + | Anemia, unspecified anemia type | + + | Rectal bleed Hemorrhage of rectum and anus | + + documented in this encounter
--- OUTSIDE RECORDS SUMMARY | ~2020-04-05 | XMS | Encounter Summary ---
Demographics + + + | Address | [address] | | | [place] [address] | + + + | Home Phone | | + + + | Preferred Language | Unknown | + + + | Marital Status | | + + + | Confucianism Affiliation | Unknown | + + + [...] [place], [place] | | | | | [address] | | + + + + + | Lydia Palm | ECON | [place], [place] | | | | | [address] | | + + + + + | melinda METZ" | ECON | [place], [place] | | | [place] | | [address] | | + + + + + | Jose C Oconnor | ECON | [address] [place] | | | | | [place] | | | | | [address] | | + + + + + Care Team Providers + +------+ + | Care Clinical Application Manager Name | Role | Phone | [...] | | | | | | | ([facility]) | | | | | | | Procedures | | | | | | | [place] | | | | | | | [...] Description | +--------+---------+ + + + | 01/10/ | Surgery | [facility] | Mundo Ramos MD | AV GRAFT CREATION | | 2019 | [facility] | [address] | | | | | [address]PER[address] | [place], [place] | | | | | [address] | [address] | | | | | [place], [place] | [phone] | | | | | [address] | | | | | | [phone] | | | +--------+---------+ + + + [...] might be different fr om the original. [facility] AV DIALYSIS SHUNT/FISTULA DISCHARGE INSTRUCTIONS Your physician [...] dialysis shunt, please contact your ph ysician. Inc[facility] Remember: Follow-up visits allow [...] 24 hours, or as directed by your [facility]. Change your dressing if it [...] by your healthcare provider Date Last Reviewed: 10/10/201619990991-8665 [employer]. [address] [place] [address]. All righ ts reserved. This information is [...] chances for infection. Controlled body temperature. A ptftt-kyor-oplmet temperature during or after surgery pre vents [...] water or with an alcoho l-based hand equipment or machinery cleaner before and after caring for you. [...] doesn t go away Date Last Reviewed: 10/10/201619995982-8473 [employer]. [address] [place] [address]. All righ ts reserved. This information is [...] official disposal site. Contact the [facility] at [phone] or your city/ecu health government to find a site. If you cannot return the medicine, flush it down the toilet. Do not use the medicine after the expiration date. [facility] AV DIALYSIS SHUNT/FISTULA DISCHARGE INSTRUCTIONS Your physician [...] information carefully each time. Talk to your combat systems operator mine warfare regarding the use of this medicine in [...] this medicine? Tell your doctor or health director of home care hospice if your pain does not go away, [...] should report to your doctor or health director of home care hospice as soon as p ossible: allergic reactions like skin rash, itching or hives, swelling of the face, lips, or tong ue breathing problems chest pain confusion fast, irregular heartbeat feeling faint or lightheaded, falls trouble passing urine or change in the amount of urine Side effects that usually do not require medical attention (Report these to your doctor or health director of home care hospice if they continue or are bothersome.): constipation dizziness headache nausea stomach pain tiredness vomiting This list may not describe all possible side effects. Call your doctor for medical advice a bout side effects. You may report side effects to FDA at 2-067-EJW-1904. Where should I keep my medicine? Keep [...] tablet by | 30 | 0 | /20 | | | HYDROcodone-acetamin | mouth every [...] mg by mouth | | 0 | // | | | (ZOFRAN) 4 mg tablet [...] as of this encounter Progress Notes Adia Granados RN - 01/11/2020 2:08 PM PSTDischarge instructions [...] | | | | 10:00 AM | ([facility]) | | | | | PST | [...] DAWNA | | | | performed at [facility];[address] | | LABORATORY | | | | [address];[place] | | | | | | [address] | | | | + + + + + + + + | Specimen | + + | Blood | + + + + + + + | Performing | Address | City/State/Zipcode | Phone Number | | Organization | | | | + + + + + | [facility] | [address] | [place] [address] | [phone] | + + + + + Basic [...] | | | | | | MDRD [facility] traceable | | | | | | equation.Testing | | | | | | performed at [facility];[address] | | | | | | [facility];[place], [place] | | | | | | [address] | | | | + + + + + + + + | Specimen | + + | Blood | + + + + + + + | Performing | Address | City/State/Zipcode | Phone Number | | Organization | | | | + + + + + | [facility] | [address] | [place] [address] | [phone] | + + + + + documented in this encounter Visit Diagnoses + + | Diagnosis | + + | ESRD on dialysis ([facility]) End stage renal disease | + + documented in this encounter Admitting Diagnoses + + | Diagnosis | + + | ESRD on dialysis ([facility]) End stage renal disease | + + documented in this encounter Administered Medications + +--------+ +---------+------+ + | Medication Order | MAR | Action | Dose | Rate | Site | | | Action | Date | | | | + +--------+ +---------+------+ + | bupivacaine (PF) (MARCAINE) | Given | 01/11/20 | 2.5 mLs | | Surgical | | 0.5% injection PRN, Starting Tue | | 20 11:31 | | | Site | | 01/11/20 at 1131, Intra-op | | AM PST | | | | + +--------+ +---------+------+ + +---+---+ | | | +---+---+ + [...] | | | | | | longer, vstrre-qva-fmtgi use of | | | | | [...] + +-------+ +--------+---+---+ | heparin 5,000 units/mL | Given | 01/11/20 | 5,000 | | | | injection PRN, Starting Tue | | 20 11:31 | Units | | | | 01/11/20 at 1131, Intra-op | | AM PST | | | | + +-------+ [...] | | | | | | | ddhpsu-wmm-hmvxp use of at least | | | [...] +---+---+ | | | +---+---+ + +-------+ +---------+---+ + | lidocaine 1% injection PRN, | Given | 01/11/20 | 2.5 mLs | | Surgical | | Starting 01/11/20 at 1131, | | 20 11:31 | | | Site | | Intra-op | | AM PST | | | | + +-------+ +---------+---+ + +---+---+ | | | +---+---+ + [...]
--- OUTSIDE RECORDS SUMMARY | ~2020-04-05 | XMS | Encounter Summary ---
Demographics + + + | Address | [address] | | | [place] [address] | + + + | Home Phone [...] [place], [place] | | | | | [address] | | + + + + + | Lydia Palm | ECON | [place], [place] | | | | | [address] | | + + + + + | melinda METZ" | ECON | [place], [place] | | | reba | | [address] | | + + + + + | Jose C Oconnor | ECON | [address] [place] | | | | | [place] | | | | | [address] | | + + + + + Care Team Providers + +------+ + | Care Feller Machine Operator Name | Role | Phone [...] + + | 09/13/ | Telephone | [facility] | Qasim Pederson MD | Other (Would Vac | | 2019 | | VASCULAR SURGERY | [address] | Questions) | | | | [address] | [place] | | | | | [place], [place] | [address] | | | | | [address] | | | | | | [phone] | | | +--------+ + + + [...]
--- OUTSIDE RECORDS SUMMARY | ~2020-04-05 | XMS | Encounter Summary ---
Demographics + + + | Address | [address] | | | [place] [address] | + + + | Home Phone | | + + + | Preferred Language | Unknown | + + + | Marital Status | | + + + | Taoism Affiliation | Unknown | + + + [...] [place], [place] | | | | | [address] | | + + + + + | Lydia Palm | ECON | [place], [place] | | | | | [address] | | + + + + + | melinda METZ" | ECON | [place], [place] | | | reba | | [address] | | + + + + + | Jose C Oconnor | ECON | [place] | | | | | [place] | | | | | [phone] | | + + + + + Care Team Providers + +------+ + | Care Solution Designer Name | Role | Phone | + +------+ + | Juan F Whitley DO | PCP | | + +------+ + Encounter Details +--------+ + + + + | Date | Type | Department | Care Team | Description | +--------+ + + + + | 01/22/ | Hospital | [facility] | Alexx Pate | Cellulitis; Urinary | | 2017 - | Encounter | [facility] | MD [address] | tract infection, | | | | CARE FLOOR [address] | site unspecified; | | 01/25/ | | [address] | [place] [address] | Abdominal wall | | 2017 | | [place], [place] | [phone] | abscess; CKD | | | | [address] | | (chronic kidney | | | | [phone] | | disease), | | | | | | unspecified stage; | | | | | | Acute cystitis | | | | | | without hematuria; | | | | | | Abdominal pain, | | | | | | unspecified site; | | | | | | Abdominal wall | | | | | | cellulitis; | | | | | | Complication of | | | | | | peritoneal dialysis, | | | | | | initial encounter; | | | | | | ESRD (end stage | | | | | | renal disease) | | | | | | (HCC); | | | | | | Gastroesophageal | | | | | | reflux disease | | | | | | without esophagitis; | | | | | | Obesity, | | | | | | unspecified | +--------+ + + + + Social [...] + + + | Blood Pressure | 152/76 | 01/25/2017 3:31 PM | | | | | PDT | | + + + + + | Pulse | 68 | 01/25/2017 3:31 PM | | | | | PDT | | + + + + + | Temperature | 36.9 C (98.4 F) | 01/25/2017 3:31 PM | | | | | PDT | | + + + + + | Respiratory Rate | 18 | 01/25/2017 3:31 PM | | | | | PDT | | + + + + + | Oxygen Saturation | - | - | | + + + + + | Inhaled Oxygen | - | - | | | Concentration | | | | + + + + + | Weight | 92.6 kg (204 lb 3.2 | 01/25/2017 3:31 PM | | | | oz) | PDT | | + + + + + | Height | 160 cm (5' 3") | 01/25/2017 3:31 PM | | | | | PDT | | + + + + + | Body Mass Index | 36.17 | 01/25/2017 3:31 PM | | | | | PDT | | + + + + + documented in this encounter Discharge Summaries Shad Ba MD - 01/25/2017 1:20 PM PDTFormatting of this note might be diff erent from the original. Discharge Summaries by Shad Ba MD at 01/25/17 1320 Author: hSad Ba MD Service: Hospitalist Author Type: Physician Filed: 01/25/17 1800 Date of Service: 01/25/17 1320 Status: Addendum Calciner Feeder: Shad Ba MD (Physician) Related Notes: Original Note by Shad Ba MD (Physician) filed at 01/25/17 1758 Patient: Ramona Oconnor : 1980 Date of Admission: 01/22/2017 Date of Discharge: 01/25/2017 Treatment Team: Consulting Physician: Andres Mejia MD Admitting Provider: Alexx Pate MD Discharging Provider: Shad Ba MD Discharge Diagnoses: Principal Problem: Abdominal wall abscess Active Problems: ESRD (end stage renal disease) ([facility]) Obesity, unspecified Gastroesophageal reflux disease without esophagitis Resolved Problems: Fatigue Metabolic acidosis Hyperphosphatemia Elevated lipase Peritonitis associated with peritoneal dialysis ([facility]) Procedures Performed: Chief Complaint: Abdominal Pain Hospital Course: Ramona Oconnor is a 36 y.o. female whpast medical history of gastroesophageal reflux dise ase without esophagitis, obesity, end-stage renal disease on peritoneal dialysis with perito aquilino dialysis [place] [address] Ramos was admitted on 01/22/2017 with cellulitis around t he area of the peritoneal dialysis catheter as well as discharge, the patient had been seen at dialysis clinic in the [facility] a sample of pertioneal dialysate and di scharge from neear the peritoneal dialyisis cath was taken and sent for culturesr, the patie nt was then sent over to [facility] and admitted, patient was initially given IV vancomycin and I V ceftzidime,, the patient did not have any fever while she was in the hospital, we also dis cussed the patient with Dr. Ramos of vascular surgery who did not think the peritoneal cathete r needed to be removed as there was no peritonitis, I also discussed the CT scan finding wit h of general surgery and he reviewed the CT scan there was not much fluid in ther e for him to be able to drain as well, since it was already coming out around the peritoneal dialysis site. Subsequently the patient's abdominal pain improved, the peritoneal fluid as well as the discharge did not grow any microorganisms the patient was changed over to oral C ipro and discharged home. Discharge Exam and Data: Vital Signs: BP 139/66 mmHg | Pulse 73 | Temp(Src) 97.3 F (36.3 C) (Oral) | Resp 18 | Ht 1.6 m (5' 3 ") | Wt 92.625 kg (204 lb 3.2 oz) | BMI 36.18 kg/m2 | SpO2 97% | LMP 11/28/2016 General Appearance: Alert, cooperative, no distress, appears stated age Head: Normocephalic, without obvious abnormality, atraumatic Eyes: PERRL, conjunctiva/corneas clear, EOM's intact, Ears: Normal external ear canals, both ears Nose: Nares normal, septum midline, mucosa normal, no drainage or sinus tendernes s Throat: Lips, mucosa, and tongue normal; teeth and gums normal Neck: Supple, symmetrical, trachea midline, no adenopathy; thyroid: no enlargement/tenderness/nodules; no carotid bruit or JVD Back: Symmetric, no curvature, ROM normal, no CVA tenderness Lungs: Clear to auscultation bilaterally, respirations unlabored Chest Wall: No tenderness or deformity Heart: Regular rate and rhythm, S1 and S2 normal, no murmur, rub or gallop Abdomen: Soft,now really no tenderness around peritoneal dialysis catheter site no smell and bandage dry, bowel sounds active all four quadrants, no masses, no organomegal y Extremities: Extremities normal, atraumatic, no cyanosis or edema Pulses: 2+ and symmetric all extremities Skin: Skin color, texture, turgor normal, no rashes or lesions Lymph nodes: Cervical, supraclavicular, and axillary nodes normal Neurologic: CNII-XII intact, normal strength, sensation and reflexes throughout Recent Labs Recent Labs Lab 01/25/17 041 WBC 11.09* HGB 9.5* HCT 28.3* PLT 338 Recent Labs Lab 01/25/17413 NA 136 K 3.7 CL 95* CO2 31 BUN 50* CREATININE 14.5* No results for input(s): INR in the last 168 hours. Recent Radiology Results Ct Abdomen & Pelvis Without Contrast 01/22/2017 1. Small amount of fluid or soft tissue density adjacent to the peritoneal dial ysis catheter within the subcutaneous tissues of the ventral abdomen, possibly representing infection. No intraabdominal or pelvic abscess collection is demonstrated. 2. Small amount of free pelvic fluid. Nonspecific slightly hyperdense area is seen dependently within the fl uid on the right, which may represent proteinaceous or hemorrhagic material. 3. Left adrena l nodule which is low-attenuation, favoring adenoma. Electronically signed by Ray rodegrs 01/22/2017 11:55 PM Us Abdomen Limited 01/23/2017 1. Nonspecific fluid surrounding the peritoneal dialysis catheter within the worthy bcutaneous soft tissues. This may represent infection. Outstanding Issues: For the patient's cellulitis and and the mild intra-abdominal wall abscess near the periton eal dialysis catheter patient has been given vancomycin already, we will continue with Cipro 500 bid to complete 14 days, the patient will also be seeing Dr. Chi on Friday01/27/2017 and will need to have the peritoneal fluid rechecked again maybe given vancomycin depending on Dr. Chi's decision, will continue with gentamicin ointment to apply topically, continu e with acetaminophen 2 tabs every 8 hours as needed for pain if that does not work Percocet 5/325 every 4 hours use sparingly. For her ESRD and hypertension and other chronic medical conditions the patient will continu e with amlodipine 2.5 mg orally daily, vitamin D 50,000 units weekly, omeprazole 20 mg every morning before breakfast, Zofran 8 mg every 8 hours as needed for nausea, Torsemide 20 mg daily, and sevelamer 800 mg 3 times daily with meals was added. Discharge Information: Follow up: Discharge Instructions Diet Renal Activity as Tolerated Call MD for: Temperature > 100.4F (38C) Call MD for: Persistant Nausea and Vomiting Call MD for: Redness, Tenderness, or Signs of Infection (Pain, Swelling, Redness, Odor or Green/Yellow Discharge Around Incision Site) Santos Chi MD [address] [facility] [address] [place] [address] On 02/03/2017 as scheduled [facility] [address] [place] [address] Schedule an appointment as soon as possible for a visit in 3 days Medication List START taking these medications acetaminophen 325 MG tablet QTY: 30 tablet Refills: 0 Commonly known as: TYLENOL Take 2 tablets by mouth every 8 (eight) hours as needed. ciprofloxacin 500 MG tablet QTY: 13 tablet Refills: 0 Commonly known as: CIPRO Take 1 tablet by mouth Once a Day-Quinalones. Indications: Skin and Soft Tissue Infection gentamicin 0.1 % ointment QTY: 15 g Refills: 1 Commonly known as: GARAMYCIN Apply topically 3 (three) times daily. oxyCODONE-acetaminophen 5-325 MG per tablet QTY: 30 tablet Refills: 0 Commonly known as: PERCOCET Take 1 tablet by mouth every 4 (four) hours as needed for Pain (if acetaminpophen does not work use sparingly). sevelamer 800 MG tablet QTY: 180 tablet Refills: 1 Commonly known as: RENVELA Take 2 tablets by mouth 3 (three) times daily with meals. CONTINUE taking these medications amLODIPine 2.5 MG tablet Refills: 0 Commonly known as: NORVASC ergocalciferol 46637 UNITS capsule Refills: 0 Commonly known as: ALEXANDRA Notes to Patient: RESUME HOME SCHEDULE omeprazole 20 MG capsule Refills: 0 Commonly known as: PRILOSEC ondansetron 8 MG tablet QTY: 30 tablet Refills: 11 Commonly known as: ZOFRAN Take 1 tablet by mouth every 8 (eight) hours as needed for Nausea. torsemide 20 MG tablet Refills: 0 Commonly known as: DEMADEX Where to Get Your Medications You can get these medications from any pharmacy Bring a paper prescription for each of these medications - acetaminophen 325 MG tablet - ciprofloxacin 500 MG tablet - gentamicin 0.1 % ointment - ondansetron 8 MG tablet - oxyCODONE-acetaminophen 5-325 MG per tablet - sevelamer 800 MG tablet Disposition: Home Condition: Stable Code Status: Full Code An After Visit Summary was printed and given to the patient. Patient and mom verbalized understanding, agreement, and compliance with discharge plan. Discharge took more than 35 minutes, to include final examination, discussion of admission , and preparation of prescriptions, instructions for on-going care, follow-up and documentat ion of discharge summary. Shad Ba 1:20 PM documented in this encounter Medications at [...] Progress Notes Conversion Transaction, Provider Unknown - 01/25/2017 12:58 PM PDTFormatting of this note m ight be different from the original. Nurse Progress Note by Adonis Bonner RN at 01/25/17 1258 Author: Adonis Bonner RN Service: Nephrology Author Type: Registered Nurse Filed: 01/25/17 1300 Date of Service: 01/25/17 1258 Status: Signed Calciner Feeder: Adonis Bonner RN (Registered Nurse) Patient said she and her will take the dialysis extension off themselves, and that they fill comfortable doing it themselves. Kashif Moreno MD - 01/25/2017 11:23 AM PDTFormatting of this note might be different from the or iginal. Progress Notes by Kashif Reyna MD at 01/25/17 1123 Author: Kashif Reyna MD Service: Nephrology Author Type: Physician Filed: 01/25/17 1429 Date of Service: 01/25/17 1647 Status: Signed Calciner Feeder: Kashif Reyna MD (Physician) PCP : [facility] LOS: 2 days Ramona Oconnor is a 36 y.o. 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 I assumed nephrology care from Dr. Mejia 01/24/2017. She was admitted with peritonitis. 01/24/2017 She was seen with her mother "Lyubov". 01/25/2017 She is seen with her mother "Lyubov". She feels better today. Her nausea, PO intake, and abdominal discomfort are improved. She did have a BM last night. She has no fever, chills sweats, no shortness of breath, chest pain. ROS: As in History of Present Illness. 7 area ROS was done and was otherwise negative. Examination: Constitutional: Alert, awake, oriented lying flat in bed comfortably. No asterixis. Morbidl y obese. HEENT: Thick neck without JVD, non- icteric sclera. Cardiovascular: S1 soft. No S3. No pericardial rub. LUNGS:: Effort fair. Scattered rales at bases. Abdominal: Minimal tenderness without guarding hypogastric region. No distension and no ma ss. No rebound tenderness and no guarding. PD [...] as appropriate. Past history summarized as above. 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 There was not enough s ampling for IF or EM. Serological workup with hepatitis panel, HIV testing, CRYSTAL, syphilis ne gative. She had normal C4 and minimally reduced C3 level. Free light chain ratio normal. Jane ging with kidney ultrasound from 10/25/15 showed normal sized kidneys. 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 Primary orange grower is Dr. Chi Essential HTN Anemia of chronic renal failure Secondary hyperparathyroidism Family/social history: She lives at home and is a former smoker. Vital Signs: BP 135/58 mmHg | Pulse 85 | Temp(Src) 98.5 F (36.9 C) (Oral) | Resp 18 | Ht 1.6 m (5' 3 ") | Wt 92.625 kg (204 lb 3.2 oz) | BMI 36.18 kg/m2 | SpO2 98% | LMP 11/28/2016 Data evaluation: Lab Results Component Value Date BUN 50* 01/25/2017 CREATININE 14.5* 01/25/2017 EGFR 3* 01/25/2017 NA 136 01/25/2017 K 3.7 01/25/2017 CL 95* 01/25/2017 CO2 31 01/25/2017 CA 8.2* 01/25/2017 PHOS 5.4* 01/25/2017 MG 3.5* 01/25/2017 ALB 2.0* 01/25/2017 HGB 9.5* 01/25/2017 PD fluid from 01/23/17 426 cells with 81% polys. Culture pending Blood cultures 01/22/17 -. MRSA 01/22/[address] -. [address] Abdomen & Pelvis Without Contrast 01/22/2017 showed small amount of fluid or soft tissue density adjacent to the peritoneal dialysis catheter within the subcutaneous tissues of the ventral abdomen, possibly representing infection. No intraabdominal or pelvic abscess collec tion demonstrated. 2. Small amount of free pelvic fluid. Us Abdomen Limited 01/23/2017 showed nonspecific fluid surrounding the peritoneal dialysis c atheter within the subcutaneous soft tissues. Day 1 vancomycin 01/22/17 Day 1 zosyn 01/22/17 Assessment and Recommendations: ESRD on PD Peritonitis She is tolerating PD reasonably well using current access. There is no clear indication of PD catheter removal (no clear evidence of tunnel tract infection). She is doing well today and from my perspective she may be discharged. Since PD fluid cu lture is so far negative and she is tolerating PO reasonably well she may be discharged on c iprofloxacin 500 mg PO daily for a total of 14 days (end day 02/05/17 for a 14 day course). She has an appointment to see Dr. Chi Friday at which cell count and PD fluid culture along with vancomycin level may be repeated and repeat dose given depending on PD fluid cult ure results. She can resume PD using her usual prescription of 10 hours with 5 cycles of 2 L tonight using mix of 1.5% and 2.5% dianeal solution. Diet: 1 gm/kg protein, 1 gm PO4, 2 gm Na, and 2 gm K restricted diet. Dose all meds for an eGFR of less than 15 ml/min/1.73 m2. No use of NSAIDs (including MENDES 2 inhibitors). No use of Magnesium or aluminum containing antacids. No use of Magnesium or phosphorus containing laxatives No Fluid restriction Strict I/O Daily weights. Keep in + balance. KASHIF REYNA MD 01/25/2017 Plan of care was discussed with Dr. Ba. Total time: 36 min More than 50% coordination of care and In counseling regarding PD associated peritonitis. (time spent in explanation of diagnosis, prognosis, treatment plan and options of treatment ) Portions of my previous notes have been carried over for continuity of care. She was seen earlier in the day and charting was completed later after rounds. Dictation software, was [employer], used which may contain error for similar sounding words deja ana maria after review. Personal communication is requested for any clarification. Prognosis is guarded in view of multiple comorbid illnesses and ESRD amLODIPine 2.5 mg Oral Daily cefTAZidime 500 mg Intravenous Q24H cholecalciferol 2,000 Units Oral Daily gentamicin Topical TID heparin (porcine) 5000 unit/0.5mL 5,000 Units Subcutaneous 3 times per day pantoprazole 40 mg Oral QAM AC sevelamer 1,600 mg Oral TID WC torsemide 20 mg Oral Daily vancomycin 500 mg Intravenous See Admin Instructions onversion Transactio n, Provider Unknown - 01/25/2017 9:23 AM PDT Progress Notes by Adenike Howard RPH at 01/25/17922 Author: Adenike Howard RPH Service: (none) Author Type: Pharmacist Filed: 01/25/17922 Date of Service: 01/25/17922 Status: Signed Calciner Feeder: Adenike Howard RPH (Pharmacist) Day 4 Vanco Tx. Todays labs: Scr= 14.5, WBC= 11.09 Pharmacist; ADENIKE HOWARD 01/25/2017 9:23 AM onver patric Transaction, Provider Unknown - 01/25/2017 7:31 AM PDT Progress Notes by Maria Del Rosario Weston RN at 01/25/17 0731 Author: Maria Del Rosario Weston RN Service: (none) Author Type: Registered Nurse Filed: 01/25/17732 Date of Service: 01/25/17730 Status: Signed Calciner Feeder: Maria Del Rosario Weston RN (Registered Nurse) Patient AOx4. VSS. Afebrile. Patient c/o of pain and nausea 1x. Administered PRN Dilaud id and Zofran 1x, pain and nausea resolved. No other acute changes to initial shift assessm ent. Maria Del Rosario Weston RN onver patric Transaction, Provider Unknown - 01/25/2017 5:09 AM PDT Pharmacy Note by Shelli Bustos RPH at 01/25/17508 Author: Shelli Bustos RPH Service: Pharmacy Author Type: Pharmacist Filed: 01/25/17508 Date of Service: 01/25/17508 Status: Signed Calciner Feeder: Shelli Bustos RPH (Pharmacist) Clinical Pharmacy Note: Vancomycin Day 4 Pharmacy dosing vancomycin per Renal Failure Protocol Weight: 92.6 kg WBC: 12.52 CREATININE: 15.3 mg/dL ABNORMAL (01/24/17 0506) Estimated creatinine clearance - 5.4 mL/min INDICATION: Cellulitis Vanco random level today 19.49 mcg/mL; within goal 10 to 20 mcg/mL. No dose today. Next level due tomorrow with AM labs. Shelli Bustos, PharmD 01/25/2017 5:07 AM onver patric Transaction, Provider Unknown - 01/24/2017 7:38 PM PDT Nurse Progress Note by Marixa Juarez RN at 01/24/171937 Author: Marixa Juarez RN Service: (none) Author Type: Registered Nurse Filed: 01/24/171938 Date of Service: 01/24/171937 Status: Signed Calciner Feeder: Marixa Juarez RN (Registered Nurse) New IV placed, which also is now infiltrated. No IV access at this time. Will contact ano ther unit RN to attempt IV access. Marixa Juarez RN onver patric Transaction, Provider Unknown - 01/24/2017 6:51 PM PDT Nurse Progress Note by Marixa Juarez RN at 01/24/171850 Author: Marixa Juarez RN Service: (none) Author Type: Registered Nurse Filed: 01/24/171852 Date of Service: 01/24/171850 Status: Signed Calciner Feeder: Marixa Juarez RN (Registered Nurse) IV infiltrated during phenergan IV administration. Pharmacy called, no antidote available. IV removed ensuring the most amount of medication removed with it. Warm compress applied per recommendation of Pharmacist. No signs of extravasation at this time. Pt states tender ness around site if palpated. Will continue to monitor. Marixa Juarez RN onver patric Transaction, Provider Unknown - 01/24/2017 6:24 PM PDT Nurse Progress Note by Marixa Juarez RN at 01/24/171823 Author: Marixa Juarez RN Service: (none) Author Type: Registered Nurse Filed: 01/24/171826 Date of Service: 01/24/171823 Status: Signed Calciner Feeder: Marixa Juarez RN (Registered Nurse) VS stable throughout shift. Pt still c/o abdominal pain around peritoneal catheter inserti on site. PRN dilaudid given as ordered with relief noted. Pt experiencing nausea today but was able to tolerate her meals without emesis today. PRN zofran and PRN phenergan given as ordered with relief noted. Pt has started her nighttime peritoneal dialysis. No other acu te changes from previous assessment. Marixa Juarez RN had Woodson MD - 01/24/2017 5:54 PM PDTFormatting of this note might be different f rom the original. Progress Notes by Shad Ba MD at 01/24/17 4947 Author: Shad Ba MD Service: Hospitalist Author Type: Physician Filed: 01/24/171758 Date of Service: 01/24/171753 Status: Signed Calciner Feeder: Shad Ba MD (Physician) [facility] Service: Hospitalist Progress Note Hospital Day: LOS: 1 day Post-Op Day: * No surgery found * SUBJECTIVE Patient Summary: Events Overnight: Patient seen and examined at bedside on follow-up, patient has cont inued to be afebrile overnight, vital signs have been stable, she has not had any masses or diarrhea however patient is complaining of pain score is 0-7. Still not much discharge from around her preterminal catheter site. No nausea no vomiting or diarrhea. Scheduled Medications amLODIPine 2.5 mg Oral Daily [START ON 01/25/2017] cefTAZidime 500 mg Intravenous Q24H cholecalciferol 2,000 Units Oral Daily gentamicin Topical TID heparin (porcine) 5000 unit/0.5mL 5,000 Units Subcutaneous 3 times per day pantoprazole 40 mg Oral QAM AC sevelamer 1,600 mg Oral TID WC torsemide 20 mg Oral Daily vancomycin 500 mg Intravenous See Admin Instructions Continuous Infusions PRN Medications acetaminophen OR acetaminophen, aluminum-magnesium hydroxide-simethicone, hydrALAZINE, HYDROmorphone OR HYDROmorphone, LORazepam OR LORazepam, ondansetron OR ondansetr on, polyethylene glycol, promethazine, zolpidem OBJECTIVE Vital Signs: BP 136/74 mmHg | Pulse 74 | Temp(Src) 98.4 F (36.9 C) (Oral) | Resp 20 | Ht 1.6 m (5' 3 ") | Wt 91.6 kg (201 lb 15.1 oz) | BMI 35.78 kg/m2 | SpO2 97% | LMP 11/28/2016 General Appearance: Alert, cooperative, no distress, appears stated age Head: Normocephalic, without obvious abnormality, atraumatic Eyes: PERRL, conjunctiva/corneas clear, EOM's intact, Ears: Normal external ear canals, both ears Nose: Nares normal, septum midline, mucosa normal, no drainage or sinus tenderness Throat: Lips, mucosa, and tongue normal; teeth and gums normal Neck: Supple, symmetrical, trachea midline, no adenopathy; thyroid: no enlargement/tenderness/nodules; no carotid bruit or JVD Back: Symmetric, no curvature, ROM normal, no CVA tenderness Lungs: Clear to auscultation bilaterally, respirations unlabored Chest Wall: No tenderness or deformity Heart: Regular rate and rhythm, S1 and S2 normal, no murmur, rub or gallop Abdomen: Soft,tender mostly around peritoneal dialysis catheter site, bowel sounds acti ve all four quadrants, no masses, no organomegaly Extremities: Extremities normal, atraumatic, no cyanosis or edema Pulses: 2+ and symmetric all extremities Skin: Skin color, texture, turgor normal, no rashes or lesions Lymph nodes: Cervical, supraclavicular, and axillary nodes normal Neurologic: CNII-XII intact, normal strength, sensation and reflexes throughout DATA CBC: Lab Results Component Value Date WBC 12.52* 01/24/2017 RBC 3.32* 01/24/2017 HGB 9.6* 01/24/2017 HCT 28.2* 01/24/2017 MCV 85.0 01/24/2017 MCH 28.8 01/24/2017 MCHC 33.9 01/24/2017 RDW 41.1 01/24/2017 PLT 346 01/24/2017 MPV 7.6 01/24/2017 DIFFTYPE AUTOMATED 01/24/2017 CMP: Lab Results Component Value Date NA 138 01/24/2017 K 3.9 01/24/2017 CL 96* 01/24/2017 CO2 30 01/24/2017 ANIONGAP 16 01/24/2017 GLUF 101* 01/24/2017 BUN 57* 01/24/2017 CREATININE 15.3* 01/24/2017 BCR 4 01/24/2017 CA 8.7 01/24/2017 CA 6.1* 10/29/2015 PROT 6.6 01/24/2017 ALB 2.0* 01/24/2017 GLOB 4.6 01/24/2017 BILITOT 0.4 01/24/2017 ALP 73 01/24/2017 AST 7* 01/24/2017 ALT 9* 01/24/2017 EGFR 3* 01/24/2017 Calcium: No results found for: CALCIUM Magnesium: Lab Results Component Value Date MG 4.0* 01/24/2017 Phosphorus: Lab Results Component Value Date PHOS 5.9* 01/24/2017 PT/INR: Lab Results Component Value Date INR 1.0 10/26/2015 PTT: Lab Results Component Value Date APTT 28 10/26/2015 [APTT} U/A: Lab Results Component Value Date CLARITYU HAZY 01/22/2017 LEUKOCYTESUR SMALL* 01/22/2017 NITRITE NEGATIVE 01/22/2017 UROBILINOGEN NORMAL 01/22/2017 UPRO >500* 01/22/2017 PHUR 9.0* 01/22/2017 BLOODU SMALL* 01/22/2017 KETONES NEGATIVE 01/22/2017 BILIRUBINUR NEGATIVE 01/22/2017 GLUCOSEU 150* 01/22/2017 HgBA1c: Lab Results Component Value Date HGBA1C 5.1 10/26/2015 LABGLYC 100 10/26/2015 TSH: Lab Results Component Value Date TSH 7.36* 01/23/2017 TSH 3.40 10/27/2015 Amylase: No results found for: AMYLASE Lipase: Lab Results Component Value Date LIPASE 168 01/24/2017 PROBLEM LIST Principal Problem: Abdominal wall abscess Active Problems: Fatigue Metabolic acidosis Hyperphosphatemia ESRD (end stage renal disease) ([facility]) Elevated lipase Obesity, unspecified Gastroesophageal reflux disease without esophagitis Peritonitis associated with peritoneal dialysis ([facility]) ASSESSMENT & PLAN Patient Active Hospital Problem List: Abdominal wall abscess/ / Complication of peritoneal dialysisAbdominal pain, unspecified s ite(01/23/2017) Assessment: With no signs of peritonitis Plan: Discussed the patient with Dr. Ramos personally again today, and again as yesterday t he peritoneal dialysis catheter can continue to be used, at this point pending cultures will continue with Zosyn and vancomycin I did discuss this with Dr. spencer Infectious disease informally over the phone and if needed I will consult her formally, Dr. Solitario of general surgery has seen the patient CT scan and told me again today that the arm he did not think he needed to do any aspiration or t incision and drainage, he thought continuing with antibi otic therapy would solve the problem. ESRD (end stage renal disease) ([facility]) (01/23/2017) Assessment: On peritoneal dialysis Plan: Dr. Reyna of nephrology isseeing the patient and no change in nephrology plans. Elevated lipase (01/23/2017) Assessment: no complaint of abdominal pain in epigastric and started on his heart rate, d emonstrated legs or upper quadrants Plan: continue to observe Obesity, unspecified (01/23/2017) Assessment: chronic Plan: advise weight loss Gastroesophageal reflux disease without esophagitis (01/23/2017) Assessment: no esophagitis Plan: continue protonix 40 mg daily before breakfast I explained radiology and lab findings and plan of care to patient and mother they verbaliz ed understanding and agreement and had no more questions for me after my interaction with th em. More than 35 minutes spent directly face to face with patient and more than 65% spent fo r physical examination and talking with patient and motherat bedside, on chart review, conference center coordinator rdinating care with other providers, formulating a plan of care and management as well as Co mputerized Physician Tallier. Dictation software, [employer], used which may contain error for similar sounding words even af ter review. Portions of this chart may have been copied from previous notes for continuity of care. Disposition: ? home Code Status: Full Code Shad Ba MD 01/24/2017 onversion Transaction, Provider Unknown - 01/24/2017 12:41 PM PDTFormatting of this note might be diff erent from the original. Pharmacy Note by Medina Gifford RPH at 01/24/17 1241 Author: Medina Gifford RPH Service: Pharmacy Author Type: Pharmacist Filed: 01/24/17 1242 Date of Service: 01/24/171240 Status: Signed Calciner Feeder: Medina Gifford RPH (Pharmacist) Clinical Pharmacy Note: Renal Monitoring Ramona Guzmanritchie 36 y.o. female Ht Readings from Last 1 Encounters: 01/23/17 1.6 m (5' 3") Wt Readings from Last 1 Encounters: 01/24/17 89.1 kg (196 lb 6.9 oz) Patient is on peritoneal dialysis. Pharmacy dosing for renal function. Will order the following dosage adjustments: Fortaz 1gm IV x 1, then 500 mg IV Q24H Pharmacy will continue to monitor for changes in medication orders and adjust accordingly. Medina Gifford RPh 01/24/2017 12:41 PM Kashif Moreno MD - 01/24/2017 12:02 PM PDTFormatting of this note might be different from the or iginal. Progress Notes by Kashif Reyna MD at 01/24/17 1202 Author: Kashif Reyna MD Service: Nephrology Author Type: Physician Filed: 01/24/17 5585 Date of Service: 01/24/17 1202 Status: Signed Calciner Feeder: Kashif Reyna MD (Physician) PCP : [facility] LOS: 1 day Ramona Oconnor is a 36 y.o. 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 I assumed nephrology care from Dr. Mejia 01/24/2017. She is admitted with peritonitis. 01/24/2017 She is seen with Her mother "Lyubov". She continues to have significant nausea, poor PO intake, and abdominal discomfort (even on walking). She has not had a BM for 2 days. She has no fever, chills sweats, no shortness of breath, chest pain. ROS: As in History of Present Illness. 7 area ROS was done and was otherwise negative. Examination: Constitutional: Alert, awake, oriented lying flat in bed in some distress. No asterixis. Mo rbidly obese. HEENT: Thick neck without JVD, non- icteric sclera. Cardiovascular: S1 soft. No S3. No pericardial rub. LUNGS:: Effort fair. Scattered rales at bases. Abdominal: Mild tenderness without guarding hypogastric region. No distension and no mass. No rebound [...] as appropriate. Past history summarized as above. 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 There was not enough s ampling for IF or EM. Serological workup with hepatitis panel, HIV testing, CRYSTAL, syphilis ne gative. She had normal C4 and minimally reduced C3 level. Free light chain ratio normal. Jane ging with kidney ultrasound from 10/25/15 showed normal sized kidneys. 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 Primary orange grower is Dr. Chi Essential HTN Anemia of chronic renal failure Secondary hyperparathyroidism Family/social history: She lives at home and is a former smoker. Vital Signs: BP 140/84 mmHg | Pulse 86 | Temp(Src) 98.3 F (36.8 C) (Oral) | Resp 18 | Ht 1.6 m (5' 3 ") | Wt 89.1 kg (196 lb 6.9 oz) | BMI 34.80 kg/m2 | SpO2 97% | LMP 11/28/2016 Data evaluation: Lab Results Component Value Date BUN 57* 01/24/2017 CREATININE 15.3* 01/24/2017 EGFR 3* 01/24/2017 NA 138 01/24/2017 K 3.9 01/24/2017 CL 96* 01/24/2017 CO2 30 01/24/2017 CA 8.7 01/24/2017 PHOS 5.9* 01/24/2017 MG 4.0* 01/24/2017 ALB 2.0* 01/24/2017 HGB 9.6* 01/24/2017 PD fluid from 01/23/17 426 cells with 81% polys. Culture pending Blood cultures 01/22/17 -. MRSA 01/22/[address] -. [address] Abdomen & Pelvis Without Contrast 01/22/2017 showed small amount of fluid or soft tissue density adjacent to the peritoneal dialysis catheter within the subcutaneous tissues of the ventral abdomen, possibly representing infection. No intraabdominal or pelvic abscess collec tion demonstrated. 2. Small amount of free pelvic fluid. Us Abdomen Limited 01/23/2017 showed nonspecific fluid surrounding the peritoneal dialysis c atheter within the subcutaneous soft tissues. Assessment and Recommendations: ESRD on PD Peritonitis She is tolerating PD reasonably well using current access. There is no clear indication of PD catheter removal (no clear evidence of tunnel tract infection). She is not stable for discharge today. Since PD fluid culture is pending continue empiric Abx Rx for now as outlined under. How ever zosyn may be changed to ceftazidime. She would need IV Rx as she still has nausea and w ill not be able to tolerate PO Abx just yet. Continue symptomatic Rx for nausea/pain. Encourage PO intake. Diet: 1 gm/kg protein, 1 gm PO4, [...] I/O Daily weights. Keep in + balance. KASHIF REYNA MD 01/24/2017 Portions of my previous notes have been carried over for continuity of care. She was seen earlier in the day and charting was completed later after rounds. Dictation software, was [employer], used which may contain error for similar sounding words deja ana maria after review. Personal communication is requested for any clarification. Prognosis is guarded in view of multiple comorbid illnesses and ESRD amLODIPine 2.5 mg Oral Daily cholecalciferol 2,000 Units Oral Daily gentamicin Topical TID heparin (porcine) 5000 unit/0.5mL 5,000 Units Subcutaneous 3 times per day pantoprazole 40 mg Oral QAM AC piperacillin-tazobactam 2.25 g Intravenous Q12H sevelamer 1,600 mg Oral TID WC torsemide 20 mg Oral Daily vancomycin 500 mg Intravenous See Admin Instructions onversion Transactio n, Provider Unknown - 01/24/2017 9:17 AM PDT Case Management by LUCILLE Zurita at 01/24/17916 Author: LUCILLE Zuriat Service: (none) Author Type: Shearing Machine Operator Filed: 01/24/17924 Date of Service: 01/24/17916 Status: Signed Calciner Feeder: LUCILLE Zurita (Shearing Machine Operator) 01/24/17899 Discharge Planning Evaluation Admitting Diagnosis abd wall abcess Readmission No Living Arrangements Spouse/significant other Support Systems Spouse/significant other;Parent Type of Residence Private residence Independent with ADL's Yes Independent with Mobility Yes Mental Status Oriented Prior functional status indpt, home with spouse Resources Financial concerns No Transportation issues No Patient/Family concerns No Prescription Plan Yes Anticipated Disposition Facility Type Home Met with: pt and discussed discharge planning, Pt is a 36 y.o., female, lives home with spo use, pt is indpt with adls, iadls, no dme, pt has been doing PD at home for 1 year pt has no concerns with managing her dialysis at home, pt admit with cellulitis, abscess, CM team fannie ramachandran follow clinical course for needs Patient's PCP is: [facility] Patient's insurance:[employer] Coverage concerns: no concerns Medication coverage/concerns: no concerns Community resources utilized / needed: none at this time Assistance in transportation: fam can drive home Identification of any specific education / training: TBD Barriers to Discharge / Alternative housing needed: TBD Anticipated DCP: home with spouse, pending Clinicals course for needs Calvin Fisher onver patric Transaction, Provider Unknown - 01/23/2017 10:41 PM PDT Progress Notes by Cedric Saleh RPH at 01/23/172240 Author: Cedric Saleh RPH Service: Pharmacy Author Type: Pharmacist Filed: 01/23/172240 Date of Service: 01/23/172240 Status: Signed Calciner Feeder: Cedric Saleh RPH (Pharmacist) Day 2 vanco- random level is 27.1. No dose needed. WBC is 14.0. Next random level schedu led for 01/25 at 0430. Cont vanco 500mg for AM random level < 15. onver patric Transaction, Provider Unknown - 01/23/2017 5:56 PM PDT Nurse Progress Note by Marixa Juarez RN at 01/23/171755 Author: Marixa Juarez RN Service: (none) Author Type: Registered Nurse Filed: 01/23/171757 Date of Service: 01/23/171755 Status: Signed Calciner Feeder: Marixa Juarez RN (Registered Nurse) VS stable throughout shift. Pt had 3 episodes of emesis today, IV zofran and IV phenergan given as ordered. Pt remains tired and weak and is c/o RLQ abdominal pain. PRN dilaudid gi oh with relief noted. Culture sent to lab from peritoneal insertion site and dressing ten mosquera by resolute professional. Pt is to have peritoneal dialysis tonight. No other acute changes. Wi ll continue to monitor. Marixa Juarez, RN Shad Lee MD - 01/23/2017 8:00 AM PDTFormatting of this note might be different f rom the original. Progress Notes by Shad Ba MD at 01/23/17 08 Author: Shad Ba MD Service: Hospitalist Author Type: Physician Filed: 01/23/177 Date of Service: 01/23/17799 Status: Signed Calciner Feeder: Shad Ba MD (Physician) [facility] Service: Hospitalist Progress Note Hospital Day: LOS: 0 days Post-Op Day: * No surgery found * SUBJECTIVE Patient Summary: Events Overnight: Patient seen and examined at bedside on follow-up, patient has been afebrile since admission to the hospital overnight, vital signs have been stable, she has n ot had any masses or diarrhea however patient is complaining of pain score is 9-6 Scheduled Medications cholecalciferol 2,000 Units Oral Daily heparin (porcine) 5000 unit/0.5mL 5,000 Units Subcutaneous 3 times per day pantoprazole 40 mg Oral QAM AC piperacillin-tazobactam 2.25 g Intravenous Q12H vancomycin 500 mg Intravenous See Admin Instructions Continuous Infusions sodium chloride (IV) 110 mL/hr at 01/23/17 0241 PRN Medications acetaminophen OR acetaminophen, aluminum-magnesium hydroxide-simethicone, hydrALAZINE, HYDROmorphone OR HYDROmorphone, LORazepam OR LORazepam, ondansetron OR ondansetr on, polyethylene glycol, zolpidem OBJECTIVE Vital Signs: BP 147/75 mmHg | Pulse 82 | Temp(Src) 98.3 F (36.8 C) (Oral) | Resp 16 | Ht 1.6 m (5' 3 ") | Wt 87.726 kg (193 lb 6.4 oz) | BMI 34.27 kg/m2 | SpO2 100% | LMP 11/28/2016 General Appearance: Alert, cooperative, no distress, appears stated age Head: Normocephalic, without obvious abnormality, atraumatic Eyes: PERRL, conjunctiva/corneas clear, EOM's intact, Ears: Normal external ear canals, both ears Nose: Nares normal, septum midline, mucosa normal, no drainage or sinus tenderness Throat: Lips, mucosa, and tongue normal; teeth and gums normal Neck: Supple, symmetrical, trachea midline, no adenopathy; thyroid: no enlargement/tenderness/nodules; no carotid bruit or JVD Back: Symmetric, no curvature, ROM normal, no CVA tenderness Lungs: Clear to auscultation bilaterally, respirations unlabored Chest Wall: No tenderness or deformity Heart: Regular rate and rhythm, S1 and S2 normal, no murmur, rub or gallop Abdomen: Soft,tender mostly around peritoneal dialysis catheter site, bowel sounds acti ve all four quadrants, no masses, no organomegaly Extremities: Extremities normal, atraumatic, no cyanosis or edema Pulses: 2+ and symmetric all extremities Skin: Skin color, texture, turgor normal, no rashes or lesions Lymph nodes: Cervical, supraclavicular, and axillary nodes normal Neurologic: CNII-XII intact, normal strength, sensation and reflexes throughout DATA CBC: Lab Results Component Value Date WBC 14.00* 01/23/2017 RBC 3.58* 01/23/2017 HGB 10.0* 01/23/2017 HCT 31.0* 01/23/2017 MCV 86.5 01/23/2017 MCH 28.0 01/23/2017 MCHC 32.4 01/23/2017 RDW 43.3 01/23/2017 PLT 334 01/23/2017 MPV 7.5 01/23/2017 DIFFTYPE AUTOMATED 01/23/2017 CMP: Lab Results Component Value Date NA 139 01/23/2017 K 4.2 01/23/2017 CL 95* 01/23/2017 CO2 27 01/23/2017 ANIONGAP 21* 01/23/2017 GLUF 100* 01/23/2017 BUN 61* 01/23/2017 CREATININE 16.7* 01/23/2017 BCR 4 01/23/2017 CA 9.2 01/23/2017 CA 6.1* 10/29/2015 PROT 6.9 01/23/2017 ALB 2.2* 01/23/2017 GLOB 4.7 01/23/2017 BILITOT 0.4 01/23/2017 ALP 77 01/23/2017 AST 5* 01/23/2017 ALT 8* 01/23/2017 EGFR 3* 01/23/2017 Calcium: No results found for: CALCIUM Magnesium: Lab Results Component Value Date MG 4.9* 01/23/2017 Phosphorus: Lab Results Component Value Date PHOS 7.6* 01/23/2017 PT/INR: Lab Results Component Value Date INR 1.0 10/26/2015 PTT: Lab Results Component Value Date APTT 28 10/26/2015 [APTT} U/A: Lab Results Component Value Date CLARITYU HAZY 01/22/2017 LEUKOCYTESUR SMALL* 01/22/2017 NITRITE NEGATIVE 01/22/2017 UROBILINOGEN NORMAL 01/22/2017 UPRO >500* 01/22/2017 PHUR 9.0* 01/22/2017 BLOODU SMALL* 01/22/2017 KETONES NEGATIVE 01/22/2017 BILIRUBINUR NEGATIVE 01/22/2017 GLUCOSEU 150* 01/22/2017 HgBA1c: Lab Results Component Value Date HGBA1C 5.1 10/26/2015 LABGLYC 100 10/26/2015 TSH: Lab Results Component Value Date TSH 7.36* 01/23/2017 TSH 3.40 10/27/2015 Amylase: No results found for: AMYLASE Lipase: Lab Results Component Value Date LIPASE 340 01/23/2017 PROBLEM LIST Principal Problem: Abdominal wall cellulitis Active Problems: UTI (urinary tract infection) Complication of peritoneal dialysis ESRD (end stage renal disease) ([facility]) Abdominal pain, unspecified site Elevated lipase Obesity, unspecified Gastroesophageal reflux disease without esophagitis Patient diagnosed with: , and I agree with the following nutritional recommendations: ASSESSMENT & PLAN Patient Active Hospital Problem List: Abdominal wall abscess/ / Complication of peritoneal dialysisAbdominal pain, unspecified s ite(01/23/2017) Assessment: With no signs of peritonitis Plan: Discussed the patient with Dr. Ramos over the phone and he said that since there is n o peritonitis the patient can continue to use the catheter and he will not take it out, at t his point pending cultures will continue with Zosyn and vancomycin I did discuss this with Jaylon spencer Infectious disease informally over the phone and if needed I will consult her fo rmally, I have also left a message for Dr. Solitraio of general surgery to see if he needs to drain the abscess after he looks at the CT scan. ESRD (end stage renal disease) ([facility]) (01/23/2017) Assessment: On peritoneal dialysis Plan: Consulted Dr. Mejia of nephrology who has seen the patient, will continue with per itoneal dialysis using the peritoneal dialysis catheter as discussed with Dr. Ramos who has al so discussed this with Dr. Mejia Elevated lipase (01/23/2017) Assessment: no complaint of abdominal pain in epigastric and started on his heart rate, d emonstrated legs or upper quadrants Plan: continue to observe Obesity, unspecified (01/23/2017) Assessment: chronic Plan: advise weight loss Gastroesophageal reflux disease without esophagitis (01/23/2017) Assessment: no esophagitis Plan: continue protonix 40 mg daily before breakfast I explained radiology and lab findings and plan of care to patient and and they mamta balized understanding and agreement and had no more questions for me after my interaction wi th them. More than 35 minutes spent directly face to face with patient and more than 65% spe nt for physical examination and talking with patient and at bedside, on chart revie w, coordinating care with other providers, formulating a plan of care and management as well as Computerized Physician Tallier. Dictation software, [employer], used which may contain error for similar sounding words even af ter review. Portions of this chart may have been copied from previous notes for continuity of care. Disposition: ? home Code Status: Full Code Shad Ba MD 01/23/2017 onversion Transaction, Provider Unknown - 01/23/2017 6:46 AM PDTFormatting of this note might be diff erent from the original. Nurse Progress Note by Kerri Fraga RN at 01/23/17645 Author: Kerri Fraga RN Service: (none) Author Type: Registered Nurse Filed: 01/23/17645 Date of Service: 01/23/17645 Status: Signed Calciner Feeder: Kerri Shvets, RN (Registered Nurse) Patient rested comfortably overnight, vital signs stable, no acute changes to initial admis patric assessment. Pt has pain in right lower quadrant of abdomen; receiving Dilaudid with rel ief x1 dose. Hourly rounding was otherwise uneventful. Unable to complete ROOF CEMENT AND PAINT MAKER med rec at this time as she needs to get med list from her mother. Kerri Fraga RN 01/23/2017 6:46 AM onver patric Transaction, Provider Unknown - 01/23/2017 2:51 AM PDT Pharmacy Note by Shelli Bustos RPH at 01/23/17250 Author: Shelli Bustos RPH Service: Pharmacy Author Type: Pharmacist Filed: 01/23/17250 Date of Service: 01/23/17250 Status: Signed Calciner Feeder: Shelli Bustos RPH (Pharmacist) Clinical Pharmacy Note: Vancomycin Day 1 Pharmacy dosing vancomycin per Renal Failure Protocol Height: 160 cm Weight: 87.7 kg WBC: 16.59 CREATININE: 16 mg/dL ABNORMAL (01/22/172107) - usually on peritoneal dialysis daily INDICATION: Cellulitis First dose of Vancomycin 1250 mg IV was given 01/22 at 2300. Daily random level - goal 10 t o 20 mcg/mL - next level 01/23 at 2200. Vancomycin 500 mg IV if level is less than 15 mcg/mL. Shelli Bustos PharmD 01/23/2017 2:46 AM onver patric Transaction, Provider Unknown - 01/23/2017 2:42 AM PDT Pharmacy Note by Shelli Bustos RPH at 01/23/17241 Author: Shelli Bustos RPH Service: Pharmacy Author Type: Pharmacist Filed: 01/23/17241 Date of Service: 01/23/17241 Status: Signed Calciner Feeder: Shelli Bustos RPH (Pharmacist) Clinical Pharmacy Note: Renal Monitoring Height: 160 cm Weight: 87.7 kg Patient is on peritoneal dialysis. Pharmacy dosing for renal function per Dr. Pate. Will order the following dosage adjustments: Zosyn 2.25 g IV Q12H Pharmacy will continue to follow and adjust medications as needed. Shelli Bustos, PharmJaylon 01/23/2017 2:42 AM docume nted in this encounter Plan of Treatment Not on filedocumented as of this encounter Procedures + +--------+ + + + | Procedure Name | Priori | Date/Time | Associated Diagnosis | Comments | | | ty | | | | + +--------+ + + + | EXTERNAL LAB: CBC | Routin | 01/25/2017 | | Results for this | | | e | 4:14 AM | | procedure are in the | | | | PDT | | results section. | + +--------+ + + + | PHOSPHORUS | Routin | 01/25/2017 | | Results for this | | | e | 4:14 AM | | procedure are in the | | | | PDT | | results section. | + +--------+ + + + | MAGNESIUM | Routin | 01/25/2017 | | Results for this | | | e | 4:14 AM | | procedure are in the | | | | PDT | | results section. | + +--------+ + + + | LIPASE | Routin | 01/25/2017 | | Results for this | | | e | 4:14 AM | | procedure are in the | | | | PDT | | results section. | + +--------+ + + + | VANCOMYCIN LEVEL | Routin | 01/25/2017 | | Results for this | | | e | 4:14 AM | | procedure are in the | | | | PDT | | results section. | + +--------+ + + + | COMPREHENSIVE | Routin | 01/25/2017 | | Results for this | | METABOLIC PANEL | e | 4:14 AM | | procedure are in the | | | | PDT | | results section. | + +--------+ + + + | EXTERNAL LAB: CBC | Routin | 01/24/2017 | | Results for this | | | e | 5:06 AM | | procedure are in the | | | | PDT | | results section. | + +--------+ + + + | PHOSPHORUS | Routin | 01/24/2017 | | Results for this | | | e | 5:06 AM | | procedure are in the | | | | PDT | | results section. | + +--------+ + + + | MAGNESIUM | Routin | 01/24/2017 | | Results for this | | | e | 5:06 AM | | procedure are in the | | | | PDT | | results section. | + +--------+ + + + | LIPASE | Routin | 01/24/2017 | | Results for this | | | e | 5:06 AM | | procedure are in the | | | | PDT | | results section. | + +--------+ + + + | COMPREHENSIVE | Routin | 01/24/2017 | | Results for this | | METABOLIC PANEL | e | 5:06 AM | | procedure are in the | | | | PDT | | results section. | + +--------+ + + + | VANCOMYCIN LEVEL | Routin | 01/23/2017 | | Results for this | | | e | 9:46 PM | | procedure are in the | | | | PDT | | results section. | + +--------+ + + + | CELL COUNT, BODY | Timed | 01/23/2017 | | Results for this | | FLUID | | 2:49 PM | | procedure are in the | | | | PDT | | results section. | + +--------+ + + + | CULTURE, BODY FLUID, | Timed | 01/23/2017 | | Results for this | | STERILE, SMEAR, | | 2:49 PM | | procedure are in the | | WITH ANAEROBES | | PDT | | results section. | + +--------+ + + + | US ABDOMEN LIMITED | Routin | 01/23/2017 | | Results for this | | | e | 2:30 PM | | procedure are in the | | | | PDT | | results section. | + +--------+ + + + | CULTURE, WOUND, | Timed | 01/23/2017 | | Results for this | | SMEAR, W/ANAEROBE | | 11:00 AM | | procedure are in the | | | | PDT | | results section. | + +--------+ + + + | EXTERNAL LAB: CBC | Routin | 01/23/2017 | | Results for this | | | e | 4:33 AM | | procedure are in the | | | | PDT | | results section. | + +--------+ + + + | TSH | Routin | 01/23/2017 | | Results for this | | | e | 4:33 AM | | procedure are in the | | | | PDT | | results section. | + +--------+ + + + | PHOSPHORUS | Routin | 01/23/2017 | | Results for this | | | e | 4:33 AM | | procedure are in the | | | | PDT | | results section. | + +--------+ + + + | MAGNESIUM | Routin | 01/23/2017 | | Results for this | | | e | 4:33 AM | | procedure are in the | | | | PDT | | results section. | + +--------+ + + + | LIPASE | Routin | 01/23/2017 | | Results for this | | | e | 4:33 AM | | procedure are in the | | | | PDT | | results section. | + +--------+ + + + | COMPREHENSIVE | Routin | 01/23/2017 | | Results for this | | METABOLIC PANEL | e | 4:33 AM | | procedure are in the | | | | PDT | | results section. | + +--------+ + + + | LACTIC ACID | Routin | 01/22/2017 | | Results for this | | | e | 11:50 PM | | procedure are in the | | | | PDT | | results section. | + +--------+ + + + | CT ABDOMEN PELVIS WO | Routin | 01/22/2017 | | Results for this | | CONTRAST | e | 11:27 PM | | procedure are in the | | | | PDT | | results section. | + +--------+ + + + | CULTURE, BLOOD, 2ND | Timed | 01/22/2017 | | Results for this | | SPECIMEN (NON-ORD) | | 10:23 PM | | procedure are in the | | | | PDT | | results section. | + +--------+ + + + | CULTURE, BLOOD | Timed | 01/22/2017 | | Results for this | | | | 10:20 PM | | procedure are in the | | | | PDT | | results section. | + +--------+ + + + | URINALYSIS, REFLEX | Routin | 01/22/2017 | | Results for this | | MICROSCOPIC AND/OR | e | 10:09 PM | | procedure are in the | | CULTURE | | PDT | | results section. | + +--------+ + + + | CULTURE, URINE | Routin | 01/22/2017 | | Results for this | | | e | 10:09 PM | | procedure are in the | | | | PDT | | results section. | + +--------+ + + + | MRSA NAAT | Timed | 01/22/2017 | | Results for this | | | | 9:35 PM | | procedure are in the | | | | PDT | | results section. | + +--------+ + + + | EXTERNAL LAB: CBC | Routin | 01/22/2017 | | Results for this | | | e | 9:08 PM | | procedure are in the | | | | PDT | | results section. | + +--------+ + + + | PHOSPHORUS | Routin | 01/22/2017 | | Results for this | | | e | 9:08 PM | | procedure are in the | | | | PDT | | results section. | + +--------+ + + + | MAGNESIUM | Routin | 01/22/2017 | | Results for this | | | e | 9:08 PM | | procedure are in the | | | | PDT | | results section. | + +--------+ + + + | LIPASE | Routin | 01/22/2017 | | Results for this | | | e | 9:08 PM | | procedure are in the | | | | PDT | | results section. | + +--------+ + + + | COMPREHENSIVE | Routin | 01/22/2017 | | Results for this | | METABOLIC PANEL | e | 9:08 PM | | procedure are in the | | | | PDT | | results section. | + +--------+ + + + documented in this encounter Results External Lab: [facility] (01/25/2017 4:14 AM PDT) + + + + + + | Component | Value | Ref Range | Performed | Pathologist | | | | | At | Signature | + + + + + + | WBC | 11.09 (H)Comment: | 3.80 - 11.00 | EXTERNAL | | | | Testing performed at | K/uL | LAB | | | | [facility], [address] | | | | | | [place] | | | | | | [address] | | | | + + + + + + | Red Blood | 3.30 (L)Comment: Testing | 3.70 - 5.10 | EXTERNAL | | | Cells | performed at [facility], [address] | [address] | LAB | | | Counted | [address], | | | | | | [place] [address] | | | | + + + + + + | Hemoglobin | 9.5 (L)Comment: Testing | 11.3 - 15.5 | EXTERNAL | | | | performed at [facility], [address] | g/dL | LAB | | | | [address], | | | | | | [place] [address] | | | | + + + + + + | Hematocrit, | 28.3 (L)Comment: Testing | 34.0 - 46.0 % | EXTERNAL | | | POC | performed at [facility], [address] | | LAB | | | | [address], | | | | | | [place] [address] | | | | + + + + + + | MCV | 85.6Comment: Testing | 80.0 - 100.0 fl | EXTERNAL | | | | performed at [facility], [address] | | LAB | | | [address], | | | | | | [place] [address] | | | | + + + + + + | MCH | 28.6Comment: Testing | 27.0 - 34.0 pg | EXTERNAL | | | | performed at [facility], [address] | | LAB | | | | [address], | | | | | | [place] [address] | | | | + + + + + + | MCHC | 33.4Comment: Testing | 32.0 - 35.5 | EXTERNAL | | | | performed at [facility], [address] | g/dL | LAB | | | | [address], | | | | | | [place] [address] | | | | + + + + + + | RDW-CV | 41.6Comment: Testing | 37 - 53 fl | EXTERNAL | | | | performed at [facility], [address] | | LAB | | | | [address], | | | | | | [place] [address] | | | | + + + + + + | Platelet | 338Comment: Testing | 150 - 400 K/uL | EXTERNAL | | | Count | performed at [facility], [address] | | LAB | | | Plasma | [address], | | | | | | [place] [address] | | | | + + + + + + | MPV | 7.4Comment: Testing | fl | EXTERNAL | | | | performed at [facility], [address] | | LAB | | | | [address], | | | | | | [place] [address] | | | | + + + + + + | Differentia | AUTOMATEDComment: | | EXTERNAL | | | l Type | Testing performed at | | LAB | | | | [facility], [address] | | | | | | [place] | | | | | | [address] | | | | + + + + + + | % Segmented | 72.22Comment: Testing | % | EXTERNAL | | | | performed at [facility], [address] | | LAB | | | Neutrophils | [address], | | | | | | [place] [address] | | | | + + + + + + | % | 15.07Comment: Testing | % | EXTERNAL | | | Lymphocytes | performed at [facility], [address] | | LAB | | | | [address], | | | | | | [place] [address] | | | | + + + + + + | % Monocytes | 8.23Comment: Testing | % | EXTERNAL | | | | performed at [facility], [address] | | LAB | | | | [address], | | | | | | [place] [address] | | | | + + + + + + | % | 3.90Comment: Testing | % | EXTERNAL | | | Eosinophils | performed at [facility], [address] | | LAB | | | | [address], | | | | | | [place] [address] | | | | + + + + + + | % Basophils | 0.58Comment: Testing | % | EXTERNAL | | | | performed at [facility], [address] | | LAB | | | | [address], | | | | | | [place] [address] | | | | + + + + + + | Absolute | 8.01 (H)Comment: Testing | 1.90 - 7.40 | EXTERNAL | | | Segmented | performed at [facility], [address] | K[address] | LAB | | | Neutrophils | [address], | | | | | | [place] [address] | | | | + + + + + + | Absolute | 1.67Comment: Testing | 1.00 - 3.90 | EXTERNAL | | | Lymphocytes | performed at [facility], [address] | K/uL | LAB | | | | [address], | | | | | | [place] [address] | | | | + + + + + + | Absolute | 0.91 (H)Comment: Testing | 0.00 - 0.80 | EXTERNAL | | | Monocytes | performed at [facility], [address] | K/uL | LAB | | | | [address], | | | | | | [place] [address] | | | | + + + + + + | Absolute | 0.43Comment: Testing | 0.00 - 0.50 | EXTERNAL | | | Eosinophils | performed at [facility], [address] | K/uL | LAB | | | | [address], | | | | | | [place] [address] | | | | + + + + + + | Absolute | 0.06Comment: Testing | 0.00 - 0.10 | EXTERNAL | | | Basophils | performed at [facility], [address] | K/uL | LAB | | | | [address], | | | | | | [place] [address] | | | | + + + + + + + + | Specimen | + + | Blood specimen | | (specimen) | + + + +---------+ + + | Performing | Address | City/State/Zipcode | Phone Number | | Organization | | | | + +---------+ + + | EXTERNAL LAB | | | | + +---------+ + + Phosphorus (01/25/2017 4:14 AM PDT) + + + + + + | Component | Value | Ref Range | Performed | Pathologist | | | | | At | Signature | + + + + + + | PHOSPHORUS | 5.4 (H)Comment: Testing | 2.3 - 4.8 mg/dL | EXTERNAL | | | | performed at [facility], [address] | | LAB | | | | [address], | | | | | | [place] [address] | | | | + + + + + + + + | Specimen | + + | Blood specimen | | (specimen) | + + + +---------+ + + | Performing | Address | City/State/Zipcode | Phone Number | | Organization | | | | + +---------+ + + | EXTERNAL LAB | | | | + +---------+ + + Magnesium (01/25/2017 4:14 AM PDT) + + + + + + | Component | Value | Ref Range | Performed | Pathologist | | | | | At | Signature | + + + + + + | Magnesium | 3.5 (H)Comment: Testing | 1.7 - 2.4 mg/dL | EXTERNAL | | | | performed at [facility], [address] | | LAB | | | | [address], | | | | | | [place] [address] | | | | + + + + + + + + | Specimen | + + | Blood specimen | | (specimen) | + + + +---------+ + + | Performing | Address | City/State/Zipcode | Phone Number | | Organization | | | | + +---------+ + + | EXTERNAL LAB | | | | + +---------+ + + Lipase (01/25/2017 4:14 AM PDT) + + + + + + | Component | Value | Ref Range | Performed | Pathologist | | | | | At | Signature | + + + + + + | Lipase | 152Comment: Testing | 73 - 393 U/L | EXTERNAL | | | | performed at [facility];[address] | | LAB | | | | [address];[place] | | | | | | [address] | | | | + + + + + + + + | Specimen | + + | Blood specimen | | (specimen) | + + + +---------+ + + | Performing | Address | City/State/Zipcode | Phone Number | | Organization | | | | + +---------+ + + | EXTERNAL LAB | | | | + +---------+ + + Vancomycin Level (01/25/2017 4:14 AM PDT) + + + + + + | Component | Value | Ref Range | Performed | Pathologist | | | | | At | Signature | + + + + + + | Vancomycin | 19.49Comment: Testing | ug/mL | EXTERNAL | | | Random | performed at [facility];[address] | | LAB | | | | [address];[place], [place] | | | | | | [address] | | | | + + + [...] + +---------+ + + Comprehensive Metabolic Panel (01/25/2017 4:14 AM PDT) + + + + + + | Component | Value | Ref Range | Performed | Pathologist | | | | | At | Signature | + + + + + + | Na | 136Comment: Testing | 135 - 145 | EXTERNAL | | | | performed at [facility], [address] | mmol/L | LAB | | | | [address], | | | | | | [place] [address] | | | | + + + + + + | K | 3.7Comment: Testing | 3.5 - 4.9 | EXTERNAL | | | | performed at [facility], [address] | mmol/L | LAB | | | | [address], | | | | | | [place] [address] | | | | + + + + + + | Cl | 95 (L)Comment: Testing | 99 - 109 mmol/L | EXTERNAL | | | | performed at [facility], [address] | | LAB | | | | [address], | | | | | | [place] [address] | | | | + + + + + + | CO2 | 31Comment: Testing | 23 - 32 mmol/L | EXTERNAL | | | | performed at [facility], [address] | | LAB | | | | [address], | | | | | | [place] [address] | | | | + + + + + + | Anion Gap | 14Comment: Testing | 5 - 20 mmol/L | EXTERNAL | | | | performed at [facility], [address] | | LAB | | | | [address], | | | | | | [place] [address] | | | | + + + + + + | Glucose, | 93Comment: Testing | 65 - 99 mg/dL | EXTERNAL | | | Fasting | performed at [facility], [address] | | LAB | | | | [address], | | | | | | [place] [address] | | | | + + + + + + | BUN | 50 (H)Comment: Testing | 8 - 25 mg/dL | EXTERNAL | | | | performed at [facility], [address] | | LAB | | | | [address], | | | | | | [place] [address] | | | | + + + + + + | Creatinine | 14.5 (H)Comment: Testing | 0.50 - 1.00 | EXTERNAL | | | | performed at [facility], [address] | mg/dL | LAB | | | | [address], | | | | | | [place] [address] | | | | + + + + + + | BUN/Creatin | 3Comment: Testing | | EXTERNAL | | | ine Ratio | performed at [facility], [address] | | LAB | | | | [address], | | | | | | [place] [address] | | | | + + + + + + | Calcium | 8.2 (L)Comment: Testing | 8.5 - 10.5 | EXTERNAL | | | | performed at [facility], [address] | mg/dL | LAB | | | | [address], | | | | | | [place] [address] | | | | + + + + + + | Protein, | 6.6Comment: Testing | 6.3 - 8.2 g/dL | EXTERNAL | | | Total | performed at [facility], [address] | | LAB | | | | [address], | | | | | | [place] [address] | | | | + + + + + + | Albumin | 2.0 (L)Comment: Testing | 3.6 - 5.0 g/dL | EXTERNAL | | | | performed at [facility], [address] | | LAB | | | | [address], | | | | | | [place] [address] | | | | + + + + + + | Globulin | 4.6Comment: Testing | 1.3 - 4.9 g/dL | EXTERNAL | | | | performed at [facility], [address] | | LAB | | | | [address], | | | | | | [place] [address] | | | | + + + + + + | A/G Ratio | 0.4 (L)Comment: Testing | 1.0 - 2.4 | EXTERNAL | | | | performed at [facility], [address] | | LAB | | | | [address], | | | | | | [place] [address] | | | | + + + + + + | Bilirubin | 0.3Comment: Testing | 0.1 - 1.5 mg/dL | EXTERNAL | | | Total | performed at [facility], [address] | | LAB | | | | [address], | | | | | | [place] [address] | | | | + + + + + + | ALP, | 66Comment: Testing | 35 - 115 U/L | EXTERNAL | | | External | performed at [facility], [address] | | LAB | | | | [address], | | | | | | [place] [address] | | | | + + + + + + | AST | 6 (L)Comment: Testing | 10 - 45 U/L | EXTERNAL | | | | performed at [facility], [address] | | LAB | | | | [address], | | | | | | [place] [address] | | | | + + + + + + | ALT | 8 (L)Comment: Testing | 10 - 65 U/L | EXTERNAL | | | | performed at [facility], [address] | | LAB | | | | [facility], | | | | | | [place] [address] | | | | + + + [...] W | | | | | | [facility], | | | | | | [place] [address] | | | | + + + [...] + +---------+ + + External Lab: CBC (01/24/2017 5:06 AM PDT) + + + + + + | Component | Value | Ref Range | Performed | Pathologist | | | | | At | Signature | + + + + + + | WBC | 12.52 (H)Comment: | 3.80 - 11.00 | EXTERNAL | | | | Testing performed at | K/uL | LAB | | | | [facility], [address] | | | | | | [place] | | | | | | [address] | | | | + + + + + + | Red Blood | 3.32 (L)Comment: Testing | 3.70 - 5.10 | EXTERNAL | | | Cells | performed at [facility], [address] | M/uL | LAB | | | Counted | [address], | | | | | | [place] [address] | | | | + + + + + + | Hemoglobin | 9.6 (L)Comment: Testing | 11.3 - 15.5 | EXTERNAL | | | | performed at [facility], [address] | g/dL | LAB | | | | [address], | | | | | | [place] [address] | | | | + + + + + + | Hematocrit, | 28.2 (L)Comment: Testing | 34.0 - 46.0 % | EXTERNAL | | | POC | performed at [facility], [address] | | LAB | | | | [address], | | | | | | [place] [address] | | | | + + + + + + | MCV | 85.0Comment: Testing | 80.0 - 100.0 fl | EXTERNAL | | | | performed at [facility], [address] | | LAB | | | | [address], | | | | | | [place] [address] | | | | + + + + + + | MCH | 28.8Comment: Testing | 27.0 - 34.0 pg | EXTERNAL | | | | performed at [facility], [address] | | LAB | | | | [address], | | | | | | [place] [address] | | | | + + + + + + | MCHC | 33.9Comment: Testing | 32.0 - 35.5 | EXTERNAL | | | | performed at [facility], [address] | g/dL | LAB | | | | [address], | | | | | | [place] [address] | | | | + + + + + + | RDW-CV | 41.1Comment: Testing | 37 - 53 fl | EXTERNAL | | | | performed at [facility], [address] | | LAB | | | | [address], | | | | | | [place] [address] | | | | + + + + + + | Platelet | 346Comment: Testing | 150 - 400 K/uL | EXTERNAL | | | Count | performed at [facility], [address] | | LAB | | | Plasma | [address], | | | | | | [place] [address] | | | | + + + + + + | MPV | 7.6Comment: Testing | fl | EXTERNAL | | | | performed at [facility], [address] | | LAB | | | | [address], | | | | | | [place] [address] | | | | + + + + + + | Differentia | AUTOMATEDComment: | | EXTERNAL | | | l Type | Testing performed at | | LAB | | | | [facility], [address], [place], [place] | | | | | | [address] | | | | + + + + + + | % Segmented | 75.80Comment: Testing | % | EXTERNAL | | | | performed at [facility], [address] | | LAB | | | Neutrophils | [address], | | | | | | [place] [address] | | | | + + + + + + | % | 12.67Comment: Testing | % | EXTERNAL | | | Lymphocytes | performed at [facility], [address] | | LAB | | | | [address], | | | | | | [place] [address] | | | | + + + + + + | % Monocytes | 7.61Comment: Testing | % | EXTERNAL | | | | performed at [facility], [address] | | LAB | | | | [address], | | | | | | [place] [address] | | | | + + + + + + | % | 3.38Comment: Testing | % | EXTERNAL | | | Eosinophils | performed at [facility], [address] | | LAB | | | | [address], | | | | | | [place] [address] | | | | + + + + + + | % Basophils | 0.54Comment: Testing | % | EXTERNAL | | | | performed at [facility], [address] | | LAB | | | | [address], | | | | | | [place] [address] | | | | + + + + + + | Absolute | 9.49 (H)Comment: Testing | 1.90 - 7.40 | EXTERNAL | | | Segmented | performed at [facility], [address] | K/[address] | LAB | | | Neutrophils | [address], | | | | | | [place] [address] | | | | + + + + + + | Absolute | 1.59Comment: Testing | 1.00 - 3.90 | EXTERNAL | | | Lymphocytes | performed at [facility], [address] | K/uL | LAB | | | | [address], | | | | | | [place] [address] | | | | + + + + + + | Absolute | 0.95 (H)Comment: Testing | 0.00 - 0.80 | EXTERNAL | | | Monocytes | performed at [facility], [address] | K/uL | LAB | | | | [address], | | | | | | [place] [address] | | | | + + + + + + | Absolute | 0.42Comment: Testing | 0.00 - 0.50 | EXTERNAL | | | Eosinophils | performed at [facility], [address] | K/uL | LAB | | | | [address], | | | | | | [place] [address] | | | | + + + + + + | Absolute | 0.07Comment: Testing | 0.00 - 0.10 | EXTERNAL | | | Basophils | performed at [facility], [address] | K/uL | LAB | | | | [address], | | | | | | [place] [address] | | | | + + + + + + + + | Specimen | + + | Blood specimen | | (specimen) | + + + +---------+ + + | Performing | Address | City/State/Zipcode | Phone Number | | Organization | | | | + +---------+ + + | EXTERNAL LAB | | | | + +---------+ + + Phosphorus (01/24/2017 5:06 AM PDT) + + + + + + | Component | Value | Ref Range | Performed | Pathologist | | | | | At | Signature | + + + + + + | PHOSPHORUS | 5.9 (H)Comment: Testing | 2.3 - 4.8 mg/dL | EXTERNAL | | | | performed at [facility], [address] | | LAB | | | | [address], | | | | | | [place] [address] | | | | + + + + + + + + | Specimen | + + | Blood specimen | | (specimen) | + + + +---------+ + + | Performing | Address | City/State/Zipcode | Phone Number | | Organization | | | | + +---------+ + + | EXTERNAL LAB | | | | + +---------+ + + Magnesium (01/24/2017 5:06 AM PDT) + + + + + + | Component | Value | Ref Range | Performed | Pathologist | | | | | At | Signature | + + + + + + | Magnesium | 4.0 (H)Comment: Testing | 1.7 - 2.4 mg/dL | EXTERNAL | | | | performed at [facility], [address] | | LAB | | | | [address], | | | | | | [place] [address] | | | | + + + + + + + + | Specimen | + + | Blood specimen | | (specimen) | + + + +---------+ + + | Performing | Address | City/State/Zipcode | Phone Number | | Organization | | | | + +---------+ + + | EXTERNAL LAB | | | | + +---------+ + + Lipase (01/24/2017 5:06 AM PDT) + + + + + + | Component | Value | Ref Range | Performed | Pathologist | | | | | At | Signature | + + + + + + | Lipase | 168Comment: Testing | 73 - 393 U/L | EXTERNAL | | | | performed at [facility];[address] | | LAB | | | | [address];[place], [place] | | | | | | [address] | | | | + + + [...] + +---------+ + + Comprehensive Metabolic Panel (01/24/2017 5:06 AM PDT) + + + + + + | Component | Value | Ref Range | Performed | Pathologist | | | | | At | Signature | + + + + + + | Na | 138Comment: Testing | 135 - 145 | EXTERNAL | | | | performed at [facility], [address] | mmol/L | LAB | | | | [address], | | | | | | [place] [address] | | | | + + + + + + | K | 3.9Comment: Testing | 3.5 - 4.9 | EXTERNAL | | | | performed at [facility], [address] | mmol/L | LAB | | | | [address], | | | | | | [place] [address] | | | | + + + + + + | Cl | 96 (L)Comment: Testing | 99 - 109 mmol/L | EXTERNAL | | | | performed at [facility], [address] | | LAB | | | | [address], | | | | | | [place] [address] | | | | + + + + + + | CO2 | 30Comment: Testing | 23 - 32 mmol/L | EXTERNAL | | | | performed at [facility], [address] | | LAB | | | | [address], | | | | | | [place] [address] | | | | + + + + + + | Anion Gap | 16Comment: Testing | 5 - 20 mmol/L | EXTERNAL | | | | performed at [facility], [address] | | LAB | | | | [address], | | | | | | [place] [address] | | | | + + + + + + | Glucose, | 101 (H)Comment: Testing | 65 - 99 mg/dL | EXTERNAL | | | Fasting | performed at [facility], [address] | | LAB | | | | [address], | | | | | | [place] [address] | | | | + + + + + + | BUN | 57 (H)Comment: Testing | 8 - 25 mg/dL | EXTERNAL | | | | performed at [facility], [address] | | LAB | | | | [address], | | | | | | [place] [address] | | | | + + + + + + | Creatinine | 15.3 (H)Comment: Testing | 0.50 - 1.00 | EXTERNAL | | | | performed at [facility], [address] | mg/dL | LAB | | | | [address], | | | | | | [place] [address] | | | | + + + + + + | BUN/Creatin | 4Comment: Testing | | EXTERNAL | | | ine Ratio | performed at [facility], [address] | | LAB | | | | [address], | | | | | | [place] [address] | | | | + + + + + + | Calcium | 8.7Comment: Testing | 8.5 - 10.5 | EXTERNAL | | | | performed at [facility], [address] | mg/dL | LAB | | | | [address], | | | | | | [place] [address] | | | | + + + + + + | Protein, | 6.6Comment: Testing | 6.3 - 8.2 g/dL | EXTERNAL | | | Total | performed at [facility], [address] | | LAB | | | | [address], | | | | | | [place] [address] | | | | + + + + + + | Albumin | 2.0 (L)Comment: Testing | 3.6 - 5.0 g/dL | EXTERNAL | | | | performed at [facility], [address] | | LAB | | | | [address], | | | | | | [place] [address] | | | | + + + + + + | Globulin | 4.6Comment: Testing | 1.3 - 4.9 g/dL | EXTERNAL | | | | performed at [facility], [address] | | LAB | | | | [address], | | | | | | [place] [address] | | | | + + + + + + | A/G Ratio | 0.4 (L)Comment: Testing | 1.0 - 2.4 | EXTERNAL | | | | performed at [facility], [address] | | LAB | | | | [address], | | | | | | [place] [address] | | | | + + + + + + | Bilirubin | 0.4Comment: Testing | 0.1 - 1.5 mg/dL | EXTERNAL | | | Total | performed at [facility], [address] | | LAB | | | | [address], | | | | | | [place] [address] | | | | + + + + + + | ALP, | 73Comment: Testing | 35 - 115 U/L | EXTERNAL | | | External | performed at [facility], [address] | | LAB | | | | [address], | | | | | | [place] [address] | | | | + + + + + + | AST | 7 (L)Comment: Testing | 10 - 45 U/L | EXTERNAL | | | | performed at [facility], [address] | | LAB | | | | [address], | | | | | | [place] [address] | | | | + + + + + + | ALT | 9 (L)Comment: Testing | 10 - 65 U/L | EXTERNAL | | | | performed at [facility], [address] | | LAB | | | | [address], | | | | | | [place] [address] | | | | + + + [...] W | | | | | | [address], | | | | | | [place] [address] | | | | + + + + + + + + | Specimen | + + | Blood specimen | | (specimen) | + + + +---------+ + + | Performing | Address | City/State/Zipcode | Phone Number | | Organization | | | | + +---------+ + + | EXTERNAL LAB | | | | + +---------+ + + Vancomycin Level (01/23/2017 9:46 PM PDT) + + + + + + | Component | Value | Ref Range | Performed | Pathologist | | | | | At | Signature | + + + + + + | Vancomycin | 27.19Comment: Testing | ug/mL | EXTERNAL | | | Random | performed at [facility];[address] | | LAB | | | | [address];[place], [place] | | | | | | [address] | | | | + + + [...] Culture, Body Fluid, Sterile, Smear, with Anaerobes (01/23/2017 2:49 PM PDT) + + | Specimen | + + | Body fluid sample | | (specimen) | + + + + + | Narrative | Performed At | + + + | Specimen Description ABDOMEN GRAM STAIN | EXTERNAL LAB | | 1+ | | | WBC'S SEEN | | | NO ORGANISMS SEEN CULTURE | | | NO GROWTH 4 DAYS | | + + + + +---------+ + + | Performing | Address | City/State/Zipcode | Phone Number | | Organization | | | | + +---------+ + + | EXTERNAL LAB | | | | + +---------+ + + Cell Count, Body Fluid (01/23/2017 2:49 PM PDT) + + | Specimen | + + | Body fluid sample | | (specimen) | + + + + + | Narrative | Performed At | + + + | FLUID TYPE OTHER | EXTERNAL LAB | | PERITONEAL Testing performed at [facility];[address] [place] [address];[place] [address] | | | COLOR COLORLESS Testing | | | performed at [facility];[address] [facility] [facility];[place] [address] APPEARANCE | | | HAZY Testing performed at | | | [facility];[address] [facility];[place] [address] RBC'S | | | <[phone] Testing performed at [facility];[address] [facility] | | | [address]vd;[place] [address] TOTAL NUCLEATED CELLS 426 | | | Testing performed at [facility];[address];[place] [address] | | | NEUTROPHILS 81 Testing | | | performed at [facility];[address] [facility] [facility];[place] [address] LYMPHOCYTES | | | 5 Testing performed at | | | [facility];[address] [place] [address];[place] [address] MONOCYTES/MACROPHAGES | | | 14 Testing performed at [facility] [address];[place] [address] CELLS COUNTED | | | 100 Testing performed at [facility];[address] [facility];[place], [place] | | | [address] | | + + + + +---------+ + + | Performing | Address | City/State/Zipcode | Phone Number | | Organization | | | | + +---------+ + + | EXTERNAL LAB | | | | + +---------+ + + US Abdomen Limited (01/23/2017 2:30 PM PDT) + + | Specimen | + + | | + + + + + | Impressions | Performed At | + + + | 1. Nonspecific fluid surrounding the peritoneal dialysis catheter | | | within the subcutaneous soft tissues. This may represent infection. | | | | | + + + + + + | Narrative | Performed At | + + + | RAMONA OCONNOR US ABDOMEN LIMITED 01/23/2017 3:03 PM HISTORY: | | | Fluid about the dialysis catheter within the subcutaneous soft | | | tissues. TECHNIQUE: Limited sonographic evaluation of the abdomen | | | was performed. COMPARISON: January 22, 2017 FINDINGS: | | | There is fluid surrounding the catheter within the subcutaneous soft | | | tissues. At the proximal region of the catheter the fluid measures 3.4 | | | x 1.3 x 1 cm. Distally fluid measures 3.3 x 2.5 x 1.6 cm. | | + + + + + | Procedure Note | + + | Endy, Rad Conversion - 06/24/2019 3:39 AM PDT RAMONA MUSA ABDOMEN | | LIMITED01/23/2017 3:03 PM HISTORY:Fluid about the dialysis catheter within the | | subcutaneous soft tissues. TECHNIQUE:Limited sonographic evaluation of the abdomen was | | performed. COMPARISON:January 22, 2017 FINDINGS: There is fluid surrounding the catheter | | within the subcutaneous soft tissues. At the proximal region of the catheter the fluid | | measures 3.4 x 1.3 x 1 cm. Distally fluid measures 3.3 x 2.5 x 1.6 cm. IMPRESSION: 1. | | Nonspecific fluid surrounding the peritoneal dialysis catheter within the subcutaneous | | soft tissues. This may represent infection. Electronically signed by Omar Cervantes MD on | | 01/23/2017 3:12 PM | | | |COMPARISON: | |January 22, 2017 | | | |FINDINGS: | | | |There is fluid surrounding the catheter within the subcutaneous soft tissues. At the proxim al region of the catheter the fluid measures 3.4 x 1.3 x 1 cm. Distally fluid measures 3.3 x 2.5 x 1.6 cm. | | | |IMPRESSION: | |1. Nonspecific fluid surrounding the peritoneal dialysis catheter within the subcutaneous soft tissues. This may represent infection. | | | | | + + Culture, Wound, Smear, w/Anaerobe (01/23/2017 11:00 AM PDT) + + | Specimen | + + | | + + + + + | Narrative | Performed At | + + + | Specimen Description WOUND SPECIAL | EXTERNAL LAB | | REQUESTS ABDOMEN CULTURE | | | NO GROWTH 2 DAYS | | + + + + +---------+ + + | Performing | Address | City/State/Zipcode | Phone Number | | Organization | | | | + +---------+ + + | EXTERNAL LAB | | | | + +---------+ + + External Lab: CBC (01/23/2017 4:33 AM PDT) + + + + + + | Component | Value | Ref Range | Performed | Pathologist | | | | | At | Signature | + + + + + + | WBC | 14.00 (H)Comment: | 3.80 - 11.00 | EXTERNAL | | | | Testing performed at | K/uL | LAB | | | | [facility], [address] | | | | | | [place] | | | | | | [address] | | | | + + + + + + | Red Blood | 3.58 (L)Comment: Testing | 3.70 - 5.10 | EXTERNAL | | | Cells | performed at [facility], [address] | M/uL | LAB | | | Counted | [address], | | | | | | [place] [address] | | | | + + + + + + | Hemoglobin | 10.0 (L)Comment: Testing | 11.3 - 15.5 | EXTERNAL | | | | performed at [facility], [address] | g/dL | LAB | | | | [address], | | | | | | [place] [address] | | | | + + + + + + | Hematocrit, | 31.0 (L)Comment: Testing | 34.0 - 46.0 % | EXTERNAL | | | POC | performed at [facility], [address] | | LAB | | | | [address], | | | | | | [place] [address] | | | | + + + + + + | MCV | 86.5Comment: Testing | 80.0 - 100.0 fl | EXTERNAL | | | | performed at [facility], [address] | | LAB | | | | [address], | | | | | | [place] [address] | | | | + + + + + + | MCH | 28.0Comment: Testing | 27.0 - 34.0 pg | EXTERNAL | | | | performed at [facility], [address] | | LAB | | | | [address], | | | | | | [place] [address] | | | | + + + + + + | MCHC | 32.4Comment: Testing | 32.0 - 35.5 | EXTERNAL | | | | performed at [facility], [address] | g/dL | LAB | | | | [address], | | | | | | [place] [address] | | | | + + + + + + | RDW-CV | 43.3Comment: Testing | 37 - 53 fl | EXTERNAL | | | | performed at [facility], [address] | | LAB | | | | [address], | | | | | | [place] [address] | | | | + + + + + + | Platelet | 334Comment: Testing | 150 - 400 K/uL | EXTERNAL | | | Count | performed at [facility], [address] | | LAB | | | Plasma | [address], | | | | | | [place] [address] | | | | + + + + + + | MPV | 7.5Comment: Testing | fl | EXTERNAL | | | | performed at [facility], [address] | | LAB | | | | [address], | | | | | | [place] [address] | | | | + + + + + + | Differentia | AUTOMATEDComment: | | EXTERNAL | | | l Type | Testing performed at | | LAB | | | | [facility], [address] | | | | | | [place] | | | | | | [address] | | | | + + + + + + | % Segmented | 76.93Comment: Testing | % | EXTERNAL | | | | performed at [facility], [address] | | LAB | | | Neutrophils | [address], | | | | | | [place] [address] | | | | + + + + + + | % | 11.69Comment: Testing | % | EXTERNAL | | | Lymphocytes | performed at [facility], [address] | | LAB | | | | [address], | | | | | | [place] [address] | | | | + + + + + + | % Monocytes | 7.51Comment: Testing | % | EXTERNAL | | | | performed at [facility], [address] | | LAB | | | | [address], | | | | | | [place] [address] | | | | + + + + + + | % | 3.48Comment: Testing | % | EXTERNAL | | | Eosinophils | performed at [facility], [address] | | LAB | | | | [address], | | | | | | [place] [address] | | | | + + + + + + | % Basophils | 0.39Comment: Testing | % | EXTERNAL | | | | performed at [facility], [address] | | LAB | | | | [address], | | | | | | [place] [address] | | | | + + + + + + | Absolute | 10.77 (H)Comment: | 1.90 - 7.40 | EXTERNAL | | | Segmented | Testing performed at | K/uL | LAB | | | Neutrophils | [facility], [address] | | | | | | [place] | | | | | | [address] | | | | + + + + + + | Absolute | 1.64Comment: Testing | 1.00 - 3.90 | EXTERNAL | | | Lymphocytes | performed at [facility], [address] | K/uL | LAB | | | | [address], | | | | | | [place] [address] | | | | + + + + + + | Absolute | 1.05 (H)Comment: Testing | 0.00 - 0.80 | EXTERNAL | | | Monocytes | performed at [facility], [address] | K/uL | LAB | | | | [address], | | | | | | [place] [address] | | | | + + + + + + | Absolute | 0.49Comment: Testing | 0.00 - 0.50 | EXTERNAL | | | Eosinophils | performed at [facility], [address] | K/uL | LAB | | | | [address], | | | | | | [place] [address] | | | | + + + + + + | Absolute | 0.05Comment: Testing | 0.00 - 0.10 | EXTERNAL | | | Basophils | performed at [facility], [address] | K/uL | LAB | | | | [address], | | | | | | [place] [address] | | | | + + + + + + + + | Specimen | + + | Blood specimen | | (specimen) | + + + +---------+ + + | Performing | Address | City/State/Zipcode | Phone Number | | Organization | | | | + +---------+ + + | EXTERNAL LAB | | | | + +---------+ + + TSH (01/23/2017 4:33 AM PDT) + + + + + + | Component | Value | Ref Range | Performed | Pathologist | | | | | At | Signature | + + + + + + | TSH | 7.36 (H)Comment: Testing | 0.45 - 5.10 | EXTERNAL | | | | performed at [facility], [address] | uIU/mL | LAB | | | | [address], | | | | | | [place] [address] | | | | + + + + + + + + | Specimen | + + | Blood specimen | | (specimen) | + + + +---------+ + + | Performing | Address | City/State/Zipcode | Phone Number | | Organization | | | | + +---------+ + + | EXTERNAL LAB | | | | + +---------+ + + Phosphorus (01/23/2017 4:33 AM PDT) + + + + + + | Component | Value | Ref Range | Performed | Pathologist | | | | | At | Signature | + + + + + + | PHOSPHORUS | 7.6 (H)Comment: Testing | 2.3 - 4.8 mg/dL | EXTERNAL | | | | performed at [facility], [address] | | LAB | | | | [place], | | | | | | [place] [address] | | | | + + + + + + + + | Specimen | + + | Blood specimen | | (specimen) | + + + +---------+ + + | Performing | Address | City/State/Zipcode | Phone Number | | Organization | | | | + +---------+ + + | EXTERNAL LAB | | | | + +---------+ + + Magnesium (01/23/2017 4:33 AM PDT) + + + + + + | Component | Value | Ref Range | Performed | Pathologist | | | | | At | Signature | + + + + + + | Magnesium | 4.9 (H)Comment: Testing | 1.7 - 2.4 mg/dL | EXTERNAL | | | | performed at [facility], [address] | | LAB | | | | [place], | | | | | | [place] [address] | | | | + + + + + + + + | Specimen | + + | Blood specimen | | (specimen) | + + + +---------+ + + | Performing | Address | City/State/Zipcode | Phone Number | | Organization | | | | + +---------+ + + | EXTERNAL LAB | | | | + +---------+ + + Lipase (01/23/2017 4:33 AM PDT) + + + + + + | Component | Value | Ref Range | Performed | Pathologist | | | | | At | Signature | + + + + + + | Lipase | 340Comment: Testing | 73 - 393 U/L | EXTERNAL | | | | performed at [facility];[address] | | LAB | | | | [address] [facility];[place], [place] | | | | | | [address] | | | | + + + [...] + +---------+ + + Comprehensive Metabolic Panel (01/23/2017 4:33 AM PDT) + + + + + + | Component | Value | Ref Range | Performed | Pathologist | | | | | At | Signature | + + + + + + | Na | 139Comment: Testing | 135 - 145 | EXTERNAL | | | | performed at [facility], [address] | mmol/L | LAB | | | | [address], | | | | | | [place] [address] | | | | + + + + + + | K | 4.2Comment: Testing | 3.5 - 4.9 | EXTERNAL | | | | performed at [facility], [address] | mmol/L | LAB | | | | [address], | | | | | | [place] [address] | | | | + + + + + + | Cl | 95 (L)Comment: Testing | 99 - 109 mmol/L | EXTERNAL | | | | performed at [facility], [address] | | LAB | | | | [address], | | | | | | [place] [address] | | | | + + + + + + | CO2 | 27Comment: Testing | 23 - 32 mmol/L | [...] | | | | | [place] [address] | | | | + + + + + + | Glucose, | 100 (H)Comment: Testing | 65 - 99 mg/dL | EXTERNAL | | | Fasting | performed at [facility], [address] | | LAB | | | | [address], | | | | | | [place] [address] | | | | + + + + + + | BUN | 61 (H)Comment: Testing | 8 - 25 mg/dL | EXTERNAL | | | | performed at [facility], [address] | | LAB | | | | [address], | | | | | | [place] [address] | | | | + + + + + + | Creatinine | 16.7 (H)Comment: Testing | 0.50 - 1.00 | EXTERNAL | | | | performed at [facility], [address] | mg/dL | LAB | | | | [address], | | | | | | [place] [address] | | | | + + + + + + | BUN/Creatin | 4Comment: Testing | | EXTERNAL | | | ine Ratio | performed at [facility], [address] | | LAB | | | | [address], | | | | | | [place] [address] | | | | + + + + + + | Calcium | 9.2Comment: Testing | 8.5 - 10.5 | EXTERNAL | | | | performed at [facility], [address] | mg/dL | LAB | | | | [address], | | | | | | [place] [address] | | | | + + + + + + | Protein, | 6.9Comment: Testing | 6.3 - 8.2 g/dL | EXTERNAL | | | Total | performed at [facility], [address] | | LAB | | | | [address], | | | | | | [place] [address] | | | | + + + + + + | Albumin | 2.2 (L)Comment: Testing | 3.6 - 5.0 g/dL | EXTERNAL | | | | performed at [facility], [address] | | LAB | | | | [address], | | | | | | [place] [address] | | | | + + + + + + | Globulin | 4.7Comment: Testing | 1.3 - 4.9 g/dL | EXTERNAL | | | | performed at [facility], [address] | | LAB | | | | [address], | | | | | | [place] [address] | | | | + + + + + + | A/G Ratio | 0.5 (L)Comment: Testing | 1.0 - 2.4 | EXTERNAL | | | | performed at [facility], [address] | | LAB | | | | [address], | | | | | | [place] [address] | | | | + + + + + + | Bilirubin | 0.4Comment: Testing | 0.1 - 1.5 mg/dL | EXTERNAL | | | Total | performed at [facility], [address] | | LAB | | | | [address], | | | | | | [place] [address] | | | | + + + + + + | ALP, | 77Comment: Testing | 35 - 115 U/L | EXTERNAL | | | External | performed at [facility], [address] | | LAB | | | [address], | | | | | | [place] [address] | | | | + + + + + + | AST | 5 (L)Comment: Testing | 10 - 45 U/L | EXTERNAL | | | | performed at [facility], [address] | | LAB | | | [address], | | | | | | [place] [address] | | | | + + + + + + | ALT | 8 (L)Comment: Testing | 10 - 65 U/L | EXTERNAL | | | | performed at [facility], [address] | | LAB | | | | [address], | | | | | | [place] [address] | | | | + + + [...] Any, | | | | | | [place] [address] | | | | + + + + + + + + | Specimen | + + | Blood specimen | | (specimen) | + + + +---------+ + + | Performing | Address | City/State/Zipcode | Phone Number | | Organization | | | | + +---------+ + + | EXTERNAL LAB | | | | + +---------+ + + Lactic Acid (01/22/2017 11:50 PM PDT) + + + + + + | Component | Value | Ref Range | Performed | Pathologist | | | | | At | Signature | + + + + + + | Lactate | 0.9Comment: Testing | 0.4 - 2.0 | EXTERNAL | | | | performed at [facility];[address] | mmol/L | LAB | | | | [address];[place], [place] | | | | | | [address] | | | | + + + + + + + + | Specimen | + + | | + + + +---------+ + + | Performing | Address | City/State/Zipcode | Phone Number | | Organization | | | | + +---------+ + + | EXTERNAL LAB | | | | + +---------+ + + CT Abdomen Pelvis wo Contrast (01/22/2017 11:27 PM PDT) + + | Specimen | + + | | + + + + + | Impressions | Performed At | + + + | 1. Small amount of fluid or soft tissue density adjacent to the | | | peritoneal dialysis catheter within the subcutaneous tissues of the | | | ventral abdomen, possibly representing infection. No intraabdominal or | | | pelvic abscess collection is demonstrated. 2. Small amount of free | | | pelvic fluid. Nonspecific slightly hyperdense area is seen | | | dependently within the fluid on the right, which may represent | | | proteinaceous or hemorrhagic material. 3. Left adrenal nodule which | | | is low-attenuation, favoring adenoma. | | + + + + + + | Narrative | Performed At | + + + | RAMONAADDIE OCONNOR [address] ABDOMEN PELVIS WO | | | CONTRAST 01/22/2017 11:27 PM INDICATION: Evaluate for abdominal | | | wall abscess, kidney failure with peritoneal dialysis COMPARISON: | | | None. TECHNIQUE: 5-mm axial images were acquired through the | | | abdomen and pelvis. No oral or IV contrast was used. Dose reduction | | | techniques were used including automated exposure control, iterative | | | reconstruction technique, and/or automated adjustable mAs based on | | | patient size. FINDINGS: Limited evaluation of the lung bases | | | demonstrates no contributory finding. The unenhanced liver, | | | gallbladder, pancreas, and spleen demonstrate no acute findings. Left | | | adrenal nodule measuring 1 cm measuring low in attenuation, favoring | | | adenoma (series 3, image 25). . Kidneys are without | | | significant calculi or hydronephrosis. Mild bilateral perinephric | | | stranding. Abdominal aorta is nonaneurysmal. No abnormal wall | | | thickening or evidence of obstruction is demonstrated within the small | | | or large bowel. There is colonic diverticulosis without evidence of | | | acute diverticulitis. The appendix is within normal limits. A | | | small amount of free pelvic fluid is present, with a 1.5 cm of | | | slightly increased hyperdensity on the right (series 3, image 73). | | | Peritoneal dialysis catheter is noted coiling superior to the | | | bladder. There is a small amount of soft tissue or fluid density seen | | | along the tract within the subcutaneous tissues measuring up to 7.5 cm | | | in length and 1.7 cm in width (series 5B, images 17 through 19). No | | | intra-abdominal abscess is demonstrated. No enlarged lymph nodes | | | in the abdomen or pelvis by CT criteria. The bladder is collapsed | | | and not well evaluated.. No abnormal pelvic fluid or masses are | | | demonstrated. No acute osseous abnormalities. | | + + + + + | Procedure Note | + + | Endy, Rad Conversion - 06/24/2019 3:39 AM PDT RAMONA OCONNOR1980 36 years | | FemaleCT ABDOMEN PELVIS WO CONTRAST01/22/2017 11:27 PM INDICATION: Evaluate for | | abdominal wall abscess, kidney failure with peritoneal dialysis COMPARISON: None. | | TECHNIQUE: 5-mm axial images were acquired through the abdomen and pelvis. No oral or IV | | contrast was used. Dose reduction techniques were used including automated exposure | | control, iterative reconstruction technique, and/or automated adjustable mAs based on | | patient size. FINDINGS: Limited evaluation of the lung bases demonstrates no | | contributory finding. The unenhanced liver, gallbladder, pancreas, and spleen | | demonstrate no acute findings. Left adrenal nodule measuring 1 cm measuring low in | | attenuation, favoring adenoma (series 3, image 25). . Kidneys are without significant | | calculi or hydronephrosis. Mild bilateral perinephric stranding. Abdominal aorta is | | nonaneurysmal. No abnormal wall thickening or evidence of obstruction is demonstrated | | within the small or large bowel. There is colonic diverticulosis without evidence of | | acute diverticulitis. The appendix is within normal limits. A small amount of free | | pelvic fluid is present, with a 1.5 cm of slightly increased hyperdensity on the right | | (series 3, image 73). Peritoneal dialysis catheter is noted coiling superior to the | | bladder. There is a small amount of soft tissue or fluid density seen along the tract | | within the subcutaneous tissues measuring up to 7.5 cm in length and 1.7 cm in width | | (series 5B, images 17 through 19). No intra-abdominal abscess is demonstrated. No | | enlarged lymph nodes in the abdomen or pelvis by CT criteria. The bladder is collapsed | | and not well evaluated.. No abnormal pelvic fluid or masses are demonstrated. No acute | | osseous abnormalities. IMPRESSION: 1. Small amount of fluid or soft tissue density | | adjacent to the peritoneal dialysis catheter within the subcutaneous tissues of the | | ventral abdomen, possibly representing infection. No intraabdominal or pelvic abscess | | collection is demonstrated.2. Small amount of free pelvic fluid. Nonspecific slightly | | hyperdense area is seen dependently within the fluid on the right, which may represent | | proteinaceous or hemorrhagic material.3. Left adrenal nodule which is low-attenuation, | | favoring adenoma. | | | |No enlarged lymph nodes in the abdomen or pelvis by CT criteria. | | | |The bladder is collapsed and not well evaluated.. | | | |No abnormal pelvic fluid or masses are demonstrated. | | | |No acute osseous abnormalities. | | | | | |IMPRESSION: | |1. Small amount of fluid or soft tissue density adjacent to the peritoneal dialysis cathet er within the subcutaneous tissues of the ventral abdomen, possibly representing infection. No intraabdominal or pelvic abscess collection is demonstrated. | |2. Small amount of free pelvic fluid. Nonspecific slightly hyperdense area is seen depende ntly within the fluid on the right, which may represent proteinaceous or hemorrhagic materia l. | |3. Left adrenal nodule which is low-attenuation, favoring adenoma. | | | | | + + Culture, Blood, 2nd Specimen (01/22/2017 10:23 PM PDT) + + | Specimen | + + | Blood specimen | | (specimen) | + + + + + | Narrative | Performed At | + + + | Specimen Description BLOOD, PERIPHERAL DRAW | EXTERNAL LAB | | SPECIAL REQUESTS LFA CULTURE | | | NO GROWTH 6 DAYS | | + + + + +---------+ + + | Performing | Address | City/State/Zipcode | Phone Number | | Organization | | | | + +---------+ + + | EXTERNAL LAB | | | | + +---------+ + + Culture, Blood (01/22/2017 10:20 PM PDT) + + | Specimen | [...] | + +---------+ + + Culture, Urine (01/22/2017 10:09 PM PDT) + + | Specimen | + + | | + + + + + | Narrative | Performed At | + + + | Specimen Description CLEAN CATCH URINE CULTURE | EXTERNAL LAB | | <10,000 CFU/ML | | | MIXED GRAM POSITIVE AND GRAM | | | NEGATIVE CELINA NO | | | FURTHER WORKUP | | + + + + +---------+ + + | Performing | Address | City/State/Zipcode | Phone Number | | Organization | | | | + +---------+ + + | EXTERNAL LAB | | | | + +---------+ + + Urinalysis, Reflex Microscopic and/or Culture (01/22/2017 10:09 PM PDT) + + + + + + | Component | Value | Ref Range | Performed | Pathologist | | | | | At | Signature | + + + + + + | Color | YELLOWComment: Testing | | EXTERNAL | | | | performed at [facility];[address] | | LAB | | | | [address];[place] | | | | | | [address] | | | | + + + + + + | Clarity | HAZYComment: Testing | | EXTERNAL | | | | performed at [facility];[address] | | LAB | | | | [address];[place] | | | | | | [address] | | | | + + + + + + | Specific | 1.013Comment: Testing | 1.002 - 1.030 | EXTERNAL | | | [place], | performed at [facility];[address] | | LAB | | | Urine | [address];[place] | | | | | | [address] | | | | + + + + + + | Leukocyte | SMALL (A)Comment: | | EXTERNAL | | | Esterase, | Testing performed at | | LAB | | | Urine | [facility];[address];[place] [address] | | | | + + + + + + | Nitrite, | NEGATIVEComment: Testing | | EXTERNAL | | | Urine | performed at [facility];[address] | | LAB | | | | [address];[place] | | | | | | [address] | | | | + + + + + + | Urobilinoge | NORMALComment: Testing | mg/dL | EXTERNAL | | | n, Urine | performed at [facility];[address] | | LAB | | | | [address];[place] | | | | | | [address] | | | | + + + + + + | Protein, | >500 (A)Comment: Testing | mg/dL | EXTERNAL | | | Urine | performed at [facility];[address] | | LAB | | | | [address];[place] | | | | | | [address] | | | | + + + + + + | pH, Urine | 9.0 (H)Comment: Testing | 5.0 - 8.0 | EXTERNAL | | | | performed at [facility];[address] | | LAB | | | | [address];[place] | | | | | | [address] | | | | + + + + + + | Blood, | SMALL (A)Comment: | | EXTERNAL | | | Urine | Testing performed at | | LAB | | | | [facility];[address] | | | | | | [address];[place] [address] | | | | + + + + + + | Ketones | NEGATIVEComment: Testing | mg/dL | EXTERNAL | | | | performed at [facility];[address] | | LAB | | | | [address];[place] | | | | | | [address] | | | | + + + + + + | Bilirubin, | NEGATIVEComment: Testing | | EXTERNAL | | | Urine | performed at [facility];[address] | | LAB | | | | [address];[place] | | | | | | [address] | | | | + + + + + + | Glucose, | 150 (A)Comment: Testing | mg/dL | EXTERNAL | | | Urine | performed at [facility];[address] | | LAB | | | | [address];[place] | | | | | | [address] | | | | + + + + + + | WBC, UA | 50-100Comment: Testing | 0 - 5 /hpf | EXTERNAL | | | | performed at [facility];[address] | | LAB | | | | [address];[place] | | | | | | [address] | | | | + + + + + + | RBC, UA | 11-15Comment: Testing | 0 - 5 /hpf | EXTERNAL | | | | performed at [facility];[address] | | LAB | | | | [address];[place] | | | | | | [address] | | | | + + + + + + | Bacteria, | 1+ (A)Comment: Testing | | EXTERNAL | | | UA | performed at [facility];[address] | | LAB | | | | [address];[place] | | | | | | [address] | | | | + + + + + + | Epithelial | 50-100Comment: Testing | /lpf | EXTERNAL | | | Cells | performed at [facility];[address] | | LAB | | | | [address];[place] | | | | | | [address] | | | | + + + + + + | Mucus, | 1+Comment: Testing | | EXTERNAL | | | Urine | performed at [facility];[address] | | LAB | | | | [address];[place], [place] | | | | | | [address] | | | | + + + + + + + + | Specimen | + + | | + + + +---------+ + + | Performing | Address | City/State/Zipcode | Phone Number | | Organization | | | | + +---------+ + + | EXTERNAL LAB | | | | + +---------+ + + MRSA NAAT (01/22/2017 9:35 PM PDT) + + | Specimen | + + | | + + + + + | Narrative | Performed At | + + + | SOURCE NARES(NOSE) MRSA | EXTERNAL LAB | | PCR NEGATIVE Testing | | | performed at [facility];[address] [place] [address];[place] [address] | | + + + + +---------+ + + | Performing | Address | City/State/Zipcode | Phone Number | | Organization | | | | + +---------+ + + | EXTERNAL LAB | | | | + +---------+ + + External Lab: BLAINE (01/22/2017 9:08 PM PDT) + + + + + + | Component | Value | Ref Range | Performed | Pathologist | | | | | At | Signature | + + + + + + | WBC | 16.59 (H)Comment: | 3.80 - 11.00 | EXTERNAL | | | | Testing performed at | K/uL | LAB | | | | [facility];[address];[place] [address] | | | | + + + + + + | Red Blood | 3.82Comment: Testing | 3.70 - 5.10 | EXTERNAL | | | Cells | performed at [facility];[address] | M/uL | LAB | | | Counted | [address];[place] | | | | | | [address] | | | | + + + + + + | Hemoglobin | 11.0 (L)Comment: Testing | 11.3 - 15.5 | EXTERNAL | | | | performed at [facility];888 | g/dL | LAB | | | | [address];[place] | | | | | | [address] | | | | + + + + + + | Hematocrit, | 32.8 (L)Comment: Testing | 34.0 - 46.0 % | EXTERNAL | | | POC | performed at [facility];[address] | | LAB | | | | [address];[place] | | | | | | [address] | | | | + + + + + + | MCV | 85.9Comment: Testing | 80.0 - 100.0 fl | EXTERNAL | | | | performed at [facility];[address] | | LAB | | | | [address];[place] | | | | | | [address] | | | | + + + + + + | MCH | 28.9Comment: Testing | 27.0 - 34.0 pg | EXTERNAL | | | | performed at [facility];[address] | | LAB | | | | [address];[place] | | | | | | [address] | | | | + + + + + + | MCHC | 33.6Comment: Testing | 32.0 - 35.5 | EXTERNAL | | | | performed at [facility];888 | g/dL | LAB | | | | [address];[place] | | | | | | [address] | | | | + + + + + + | RDW-CV | 43.8Comment: Testing | 37 - 53 fl | EXTERNAL | | | | performed at [facility];[address] | | LAB | | | | [address];[place] | | | | | | [address] | | | | + + + + + + | Platelet | 319Comment: Testing | 150 - 400 K/uL | EXTERNAL | | | Count | performed at [facility];[address] | | LAB | | | Plasma | [address];[place] | | | | | | [address] | | | | + + + + + + | MPV | 7.0Comment: Testing | fl | EXTERNAL | | | | performed at [facility];[address] | | LAB | | | | [address];[place] | | | | | | [address] | | | | + + + + + + | Differentia | AUTOMATEDComment: | | EXTERNAL | | | l Type | Testing performed at | | LAB | | | | [facility];[address];[place] [address] | | | | + + + + + + | % Segmented | 79.91Comment: Testing | % | EXTERNAL | | | | performed at [facility];[address] | | LAB | | | Neutrophils | [address];[place] | | | | | | [address] | | | | + + + + + + | % | 10.43Comment: Testing | % | EXTERNAL | | | Lymphocytes | performed at [facility];[address] | | LAB | | | | [address];[place] | | | | | | [address] | | | | + + + + + + | % Monocytes | 6.18Comment: Testing | % | EXTERNAL | | | | performed at [facility];[address] | | LAB | | | | [address];[place] | | | | | | [address] | | | | + + + + + + | % | 3.05Comment: Testing | % | EXTERNAL | | | Eosinophils | performed at [facility];[address] | | LAB | | | | [address];[place] | | | | | | [address] | | | | + + + + + + | % Basophils | 0.43Comment: Testing | % | EXTERNAL | | | | performed at [facility];[address] | | LAB | | | | [address];[place] | | | | | | [address] | | | | + + + + + + | Absolute | 13.26 (H)Comment: | 1.90 - 7.40 | EXTERNAL | | | Segmented | Testing performed at | K/uL | LAB | | | Neutrophils | [facility];[address];[place] [address] | | | | + + + + + + | Absolute | 1.73Comment: Testing | 1.00 - 3.90 | EXTERNAL | | | Lymphocytes | performed at [facility];888 | K/uL | LAB | | | | [address];[place] | | | | | | [address] | | | | + + + + + + | Absolute | 1.03 (H)Comment: Testing | 0.00 - 0.80 | EXTERNAL | | | Monocytes | performed at [facility];888 | K/uL | LAB | | | | [address];[place] | | | | | | [address] | | | | + + + + + + | Absolute | 0.51 (H)Comment: Testing | 0.00 - 0.50 | EXTERNAL | | | Eosinophils | performed at [facility];[address] | K/uL | LAB | | | | [address];[place] | | | | | | [address] | | | | + + + + + + | Absolute | 0.07Comment: Testing | 0.00 - 0.10 | EXTERNAL | | | Basophils | performed at [facility];[address] | K/uL | LAB | | | | [address];[place] | | | | | | [address] | | | | + + + + + + + + | Specimen | + + | Blood specimen | | (specimen) | + + + +---------+ + + | Performing | Address | City/State/Zipcode | Phone Number | | Organization | | | | + +---------+ + + | EXTERNAL LAB | | | | + +---------+ + + Phosphorus (01/22/2017 9:08 PM PDT) + + + + + + | Component | Value | Ref Range | Performed | Pathologist | | | | | At | Signature | + + + + + + | PHOSPHORUS | 6.6 (H)Comment: Testing | 2.3 - 4.8 mg/dL | EXTERNAL | | | | performed at [facility];[address] | | LAB | | | | [address];[place] | | | | | | [address] | | | | + + + + + + + + | Specimen | + + | | + + + +---------+ + + | Performing | Address | City/State/Zipcode | Phone Number | | Organization | | | | + +---------+ + + | EXTERNAL LAB | | | | + +---------+ + + Magnesium (01/22/2017 9:08 PM PDT) + + + + + + | Component | Value | Ref Range | Performed | Pathologist | | | | | At | Signature | + + + + + + | Magnesium | 5.0 ()Comment: CALLED | 1.7 - 2.4 mg/dL | EXTERNAL | | | | DR MARIA L ETIENNE AT | | LAB | | | | 2149 BY RHREAD BACK | | | | | | RESULTS VERIFIEDTesting | | | | | | performed at [facility];[address] | | | | | | [address];[place], [place] | | | | | | [address] | | | | + + + + + + + + | Specimen | + + | | + + + +---------+ + + | Performing | Address | City/State/Zipcode | Phone Number | | Organization | | | | + +---------+ + + | EXTERNAL LAB | | | | + +---------+ + + Lipase (01/22/2017 9:08 PM PDT) + + + + + + | Component | Value | Ref Range | Performed | Pathologist | | | | | At | Signature | + + + + + + | Lipase | 1,090 (H)Comment: | 73 - 393 U/L | EXTERNAL | | | | Testing performed at | | LAB | | | | [place];[address] | | [address];[place] [address] | | | | + + + [...] + +---------+ + + Comprehensive Metabolic Panel (01/22/2017 9:08 PM PDT) + + + + + + | Component | Value | Ref Range | Performed | Pathologist | | | | | At | Signature | + + + + + + | Na | 136Comment: Testing | 135 - 145 | EXTERNAL | | | | performed at [facility];888 | mmol/L | LAB | | | | [address];[place] | | | | | | [address] | | | | + + + + + + | K | 4.0Comment: Testing | 3.5 - 4.9 | EXTERNAL | | | | performed at [facility];[address] | mmol/L | LAB | | | | [address];[place] | | | | | | [address] | | | | + + + + + + | Cl | 94 (L)Comment: Testing | 99 - 109 mmol/L | EXTERNAL | | | | performed at [facility];[address] | | LAB | | | | [address];[place] | | | | | | [address] | | | | + + + + + + | CO2 | 27Comment: Testing | 23 - 32 mmol/L | EXTERNAL | | | | performed at [facility];[address] | | LAB | | | | [address];[place] | | | | | | [address] | | | | + + + + + + | Anion Gap | 19Comment: Testing | 5 - 20 mmol/L | EXTERNAL | | | | performed at [facility];[address] | | LAB | | | | [address];[place] | | | | | | [address] | | | | + + + + + + | Glucose, | 104 (H)Comment: Testing | 65 - 99 mg/dL | EXTERNAL | | | Fasting | performed at [facility];[address] | | LAB | | | | [address];[place] | | | | | | [address] | | | | + + + + + + | BUN | 62 (H)Comment: Testing | 8 - 25 mg/dL | EXTERNAL | | | | performed at [facility];[address] | | LAB | | | | [address];[place] | | | | | | [address] | | | | + + + + + + | Creatinine | 16 (H)Comment: Testing | 0.50 - 1.00 | EXTERNAL | | | | performed at [facility];888 | mg/dL | LAB | | | | [address];[place] | | | | | | [address] | | | | + + + + + + | BUN/Creatin | 4Comment: Testing | | EXTERNAL | | | ine Ratio | performed at [facility];[address] | | LAB | | | | [address];[place] | | | | | | [address] | | | | + + + + + + | Calcium | 9.7Comment: Testing | 8.5 - 10.5 | EXTERNAL | | | | performed at [facility];888 | mg/dL | LAB | | | | [address];[place] | | | | | | [address] | | | | + + + + + + | Protein, | 7.9Comment: Testing | 6.3 - 8.2 g/dL | EXTERNAL | | | Total | performed at [facility];[address] | | LAB | | | | [address];[place] | | | | | | [address] | | | | + + + + + + | Albumin | 2.4 (L)Comment: Testing | 3.6 - 5.0 g/dL | EXTERNAL | | | | performed at [facility];[address] | | LAB | | | | [address];[place] | | | | | | [address] | | | | + + + + + + | Globulin | 5.5 (H)Comment: Testing | 1.3 - 4.9 g/dL | EXTERNAL | | | | performed at [facility];[address] | | LAB | | | | [address];[place] | | | | | | [address] | | | | + + + + + + | A/G Ratio | 0.4 (L)Comment: Testing | 1.0 - 2.4 | EXTERNAL | | | | performed at [facility];888 | | LAB | | | | [address];[place] | | | | | | [address] | | | | + + + + + + | Bilirubin | 0.3Comment: Testing | 0.1 - 1.5 mg/dL | EXTERNAL | | | Total | performed at [facility];[address] | | LAB | | | | [address];[place] | | | | | | [address] | | | | + + + + + + | ALP, | 86Comment: Testing | 35 - 115 U/L | EXTERNAL | | | External | performed at [facility];[address] | | LAB | | | | [address];[place] | | | | | | [address] | | | | + + + + + + | AST | 5 (L)Comment: Testing | 10 - 45 U/L | EXTERNAL | | | | performed at [facility];[address] | | LAB | | | | [address];[place] | | | | | | [address] | | | | + + + + + + | ALT | 9 (L)Comment: Testing | 10 - 65 U/L | EXTERNAL | | | | performed at [facility];[address] | | LAB | | | | [address];[place] | | | | | | [address] | | | | + + + [...] | | | | | | at [facility];[address] | [address];[place] [address] | | | | + + + [...] + | Diagnosis | + + | Cellulitis Cellulitis and abscess of unspecified site | + + | Urinary tract infection, site unspecified | + + | Abdominal wall abscess Cellulitis and abscess of trunk | + + | CKD (chronic kidney disease), unspecified stage | + + | Acute cystitis without hematuria Acute cystitis | + + | Abdominal pain, unspecified site | + + | Abdominal wall cellulitis Cellulitis and abscess of trunk | + + | Complication of peritoneal dialysis, initial encounter | + + | ESRD (end stage renal disease) (HCC) End stage renal disease | + + | Gastroesophageal reflux disease without esophagitis Esophageal reflux | + + | Obesity, unspecified | + + documented in this encounter
--- OUTSIDE RECORDS SUMMARY | ~2020-04-05 | XMS | Encounter Summary ---
Demographics + + + | Address | [address] | | | [place] [address] | + + + | Home Phone [...] [place], [place] | | | | | [address] | | + + + + + | Lydia Palm | ECON | [place], [place] | | | | | [address] | | + + + + + | melinda METZ" | ECON | [place], [place] | | | [place] | | [address] | | + + + + + | Jose C Oconnor | ECON | [address] [place] | | | | | [place] | | | | | [address] | | + + + + + Care Team Providers + +------+ + | Care Storage Specialist Name | Role | Phone | [...] + + | 01/12/ | Telephone | [facility] | Samira Dixon, | Follow-up | | 2019 | | VASCULAR SURGERY | RN | | | | | [address] | | | | | | [place] | | | | | | [address] | | | | | | [phone] | | | +--------+ + + + [...]
--- OUTSIDE RECORDS SUMMARY | ~2020-04-05 | XMS | Clinical Summary ---
Demographics + + + | Address | [address] | | | [place] [address] | + + + | Home Phone | | + + + | Preferred Language | Unknown | + + + | Marital Status | | + + + | Lutheran Affiliation | Unknown | + + + | Race | Unknown | + + + | Ethnic Group | Unknown | + + + Author + + + | Author | [facility] (Historical as of | | | 06-26-19) | + + + | Organization | [facility] (Historical as of | | | 06-26-19) | + + + | Address | Unknown | + + + | Phone | Unavailable | + + + Support + + + + + | Name | Relationship | Address | Phone | + + + + + | Lyubov Smalls | ECON | [place], [place] | | | | | [address] | | + + + + + | Lydia Palm | ECON | [place], [place] | | | | | [address] | | + + + + + | Jose C Reeves | ECON | [address] | | | | | [place] | | | | | [address] | | + + + + + Care Team Providers + +------+ + | Care Production Manufacturing Worker Name | Role | Phone | [...] | + + + + | Sepsis ([facility]) | 03/16/20 | | | | 18 | 8 | + + + + | Peritonitis ([facility]) | 03/16/20 | | | | [...] | 9 | + + + + Immunizations + + + + | Name [...] Influenza | | 10/23/2015 | | | (Season Ended) | 0 | | | + + + + [...] | | 11/09/ | [id number] | | [id number] - Sn/AImplanted: | | Arm | ARTG | | 2020 | /N/A | | Qty: 1 on 05/06/2019 by Dacia, | | | | | | /[id number] | | Qasim Porras MD | | | | | | [phone] | + +------+--------+ +--------+--------+--------+ Results Not on filefrom Last 3 Months Insurance + +--------+ +------+-------+ + | Payer | Benefi | Subscriber | Type | Phone | Address | | | t Plan | ID | | | | | | / | | | | | | | Group | | | | | + +--------+ +------+-------+ + | PREMERA | PREMER | [id number] | | | ANA [address] [address] | | | [place] | | | | [place] | | | [place] | | | | [phone] | | | FED | | | | | | | PPO | | | | | + +--------+ +------+-------+ + | [employer] | YELLOW | [id number] | | | | | PLANS | [place] | | | | | + +--------+ +------+-------+ + | MEDICARE | MEDICA | [id number] | | | [address] | | | RE | | | | [place] [phone] | | | PART A | | [...] Self | [birth year] | Home: | [address] | | [place] | al/Fam | | 1979 | [phone] | [place] | | | ca[place] | | | [phone] | [address] | + +--------+ +--------+ + +
--- OUTSIDE RECORDS SUMMARY | ~2020-04-05 | XMS | Encounter Summary ---
Demographics + + + | Address | [address] | | | [place] [address] | + + + | Home Phone [...] [place], [place] | | | | | [address] | | + + + + + | Lydia Palm | ECON | [place], [place] | | | | | [address] | | + + + + + | melinda METZ" | ECON | [place], [place] | | | [place] | | [address] | | + + + + + | Jose C Oconnor | ECON | [address] | | | | | [place] | | | | | [address] | | + + + + + Care Team Providers + +------+ + | Care Nurse Obgyn Name | Role | Phone | + +------+ + | Juan F Whitley DO | PCP | | + +------+ + Encounter Details +--------+ + + + + | Date | Type | Department | Care Team | Description | +--------+ + + + + | 05/26/ | Hospital | [facility] | Qasim Ryan MD | | | 2019 - | Encounter | [facility] | [address] | | | | | CLINICAL DECISION | [address] [place] | | | 05/27/ | | [address] | [address] | | | 2019 | | [place] | | | | | | [address] | | | | | | [phone] | | | +--------+ + + + [...] Note by Karen Charlton RN at 05/27/19 114 Author: Karen Charlton RN Service: (none) Author Type: Registered Nurse Filed: 05/27/19 1146 Date of Service: 05/27/191144 Status: Signed Parts Cataloger: Karen Charlton RN (Registered Nurse) Discharge instructions discussed with patient and family. All questions and concerns answer ed, in home wound care to follow up. Patient stable at time of discharge. IV removed and ban dage applied. All belongings with patient. Patient discharged via ambulation to [facility] with family. onver patric Transaction, Provider Unknown - 05/27/2019 7:50 AM PDT Nurse Progress Note by Zhane Ghotra RN at 05/27/19749 Author: Zhane Ghotra RN Service: (none) Author Type: Registered Nurse Filed: 05/27/1936 Date of Service: 05/27/19749 Status: Signed Parts Cataloger: Zhane Ghotra RN (Registered Nurse) Pt awaken [...] Progress Note by Nadege Gupta RN at 05/27/19553 Author: Nadege Gupta RN Service: (none) Author Type: Registered Nurse Filed: 05/27/19 0555 Date of Service: 05/27/19553 Status: Signed Parts Cataloger: Nadege Gupta RN (Registered Nurse) End of shift chart audit complete. onver patric Transaction, Provider Unknown - 05/27/2019 1:40 AM PDT Pharmacy Note by Ryan Anand RPH at 05/27/19139 Author: Ryan Anand RPH Service: Pharmacy Author Type: Pharmacist Filed: 05/27/19139 Date of Service: 05/27/19139 Status: Signed Parts Cataloger: Ryan Anand RPH (Pharmacist) Clinical Pharmacy Note: Renal Monitoring Height: 157.5 cm Weight: 82.3 kg Patient is on hemodialysis - Usual schedule: Mon-Wed-Fri Currently, there are no medications needing to be adjusted. Pharmacy will continue to monit or for changes in medication orders and adjust accordingly. RYAN ANAND, Pharmacist 05/27/2019 1:39 AM onver patric Transaction, Provider Unknown - 05/26/2019 10:00 PM PDT Nurse Progress Note by Nadege Gupta RN at 05/26/192199 Author: Nadege Gupta RN Service: (none) Author Type: Registered Nurse Filed: 05/27/19600 Date of Service: 05/26/192199 Status: Signed Parts Cataloger: Nadege Gupta RN (Registered Nurse) Patient ambulated [...] 05/26/191841 Date of Service: 05/26/191839 Status: Signed Parts Cataloger: Richard Alvarez RN (Registered Nurse) Patient in [...] portable unit 1814> [facility] house per tony [place] paul. Have [facility] portabl e unit on hand. Was told to contact Dr Ryan for orders to change unit OR would need admission for night until [facility] could deliver portable unit. Call to Dr Ryan. Dr ryan anticipates longer use of unit >7 days and [facility] will not be ideal for patient. [facility]ants [facility]. Order to admit patient. Patient and family made aware of plans for admission. docume nted in this encounter Plan of [...] | | | | | performed at [facility];88 | | | | | | [facility];[place], [place] | | | | | | [address] | | | | + + + [...] | | | QUALITATIVE | performed at [facility];888 | | LAB | | | | [address];[place] | | | | | | [address] | | | | + + + [...] | | | | | performed at [facility];88 | | | | | | [facility];[place], [place] | | | | | | [address] | | | | + + + [...]
--- OUTSIDE RECORDS SUMMARY | ~2020-04-05 | XMS | Encounter Summary ---
Demographics + + + | Address | [address] | | | [place] [address] | + + + | Home Phone [...] + + | Author | [facility] | | | and [place] | + + + | Organization | [facility] | | | and [place] | + + + | Address | Unknown | + + + | Phone | Unavailable | + + + Support + + + + + | Name | Relationship | Address | Phone | + + + + + | Lyubov Smalls | ECON | [place], [place] | | | | | [address] | | + + + + + | Lydia Palm | ECON | [place], [place] | | | | | [address] | | + + + + + | melinda METZ" | ECON | [place], [place] | | | [place] | | [address] | | + + + + + | Jose C Oconnor | ECON | [address] | | | | | [place] | | | | | [address] | | + + + + + Care Team Providers + +------+ + | Care Soundscriber Mechanic Name | Role | Phone | [...] | | | | ([facility]) | | | | | | [...] + + | 09/03/ | Anesthesia | [facility] | Louisa Ramos, | | | 2019 | [facility] | MD [address] | | | | | OPER[address] | [place] [address] | | | | | [address] | [phone] | | | | | [place], [place] | | | | | | [address] | Sara Arita, | | | | | [phone] | MD [address] | | | | | | [place] [address] | | | | | | [phone] | | | | | | | | +--------+ + + + + Anesthesia Record + + + + + | Procedure Name | Responsible | Anesthesia Start | Anesthesia Stop Time | | | Anesthesiologist | Time | | + + + + + | Resection of left | Louisa Ramos MD | 09/03/19 154 | 09/03/19 6007 | | arm AV graft with | [...] +----+---+ + + | | 1 | [place] | | | | 7 | 43-degrees [...] 09/08/19901 by | | eral | Forearm; [id number] catheter | Brandin Gray RN | Fartun [...]
--- OUTSIDE RECORDS SUMMARY | ~2020-04-05 | XMS | Clinical Summary ---
Demographics + + + | Address | [address] | | | [place] [address] | + + + | Home Phone | | + + + | Preferred Language | Unknown | + + + | Marital Status | | + + + | Jain Affiliation | Unknown | + + + | Race | Unknown | + + + | Ethnic Group | Unknown | + + + Author + + + | Author | [facility] (Historical as of | | | 06-26-19) | + + + | Organization | [facility] (Historical as of | | | 06-26-19) | + + + | Address | Unknown | + + + | Phone | Unavailable | + + + Support + + + + + | Name | Relationship | Address | Phone | + + + + + | Lyubov Smalls | ECON | [place], [place] | | | | | [address] | | + + + + + | Lydia Palm | ECON | [place], [place] | | | | | [address] | | + + + + + | Jose C Reeves | ECON | [address] | | | | | [place] | | | | | [address] | | + + + + + Care Team Providers + +------+ + | Care Skilled Labor Name | Role | Phone | + [...] | + + + + | Sepsis ([facility]) | 03/16/20 | | | | 18 | 8 | + + + + | Peritonitis ([facility]) | 03/16/20 | | | | [...] | | 11/09/ | [id number] | | [id number] - Sn/AImplanted: | | Arm | ARTG [...] +------+-------+ + | PREMERA | PREMER | [id number] | | | ANA [address] [address] | | | A [place] | | | | [place] | | | [place] | | | | [phone] | | | FED | | | | | | | PPO | | | | | + +--------+ +------+-------+ + | [employer] | YELLOW | [id number] | | | | | PLANS | [place] | | | | | + +--------+ +------+-------+ + | MEDICARE | MEDICA | [id number] | | | [address] | | | RE | | | | [place] [phone] | | | PART A | | [...] | + +--------+ +--------+ + + | [place] | Person | Self | [birth year] | Home: | [address] | | [place] | al/Fam | | 1979 | [phone] | [place] | | | caesar | | | [phone] | [address] | + +--------+ +--------+ + +
--- OUTSIDE RECORDS SUMMARY | ~2020-04-05 | XMS | Encounter Summary ---
Demographics + + + | Address | [address] | | | [place] [address] | + + + | Home Phone | | + + + | Preferred Language | Unknown | + + + | Marital Status | | + + + | Anglican Affiliation | Unknown | + + + | Race | Unknown | + + + | Ethnic Group | Unknown | + + + Author + + + | Author | [facility] | | | and [place] | + + + | Organization | [facility] | | | and [place] | + + + | Address | Unknown | + + + | Phone | Unavailable | + + + Support + + + + + | Name | Relationship | Address | Phone | + + + + + | Lyubov Smalls | ECON | [place], [place] | | | | | [address] | | + + + + + | Lydia Palm | ECON | [place], [place] | | | | | [address] | | + + + + + | melinda METZ" | ECON | [place], [place] | | | [place] | | [phone] | | + + + + + | Jose C Oconnor | ECON | [place] | | | | | [place] | | | | | [address] | | + + + + + Care Team Providers + +------+ + | Care Automobile Service Station Manager Name | Role | Phone | + +------+ + | Juan F Sampson DO | PCP | | + +------+ + Encounter Details +--------+ + + + + | Date | Type | Department | Care Team | Description | +--------+ + + + + | 02/01/ | Hospital | [facility] | Karen Roque DO | End-stage renal | | 2019 - | Encounter | [facility] | [address] | disease ([facility]); | | | | CARE FLOOR [address] | [place] [address] | Anemia in ESRD | | 02/15/ | [address] | [phone] | (end-stage renal | | 2019 | | [place], [place] | | disease) ([facility]); | | | | [address] | | Electrolyte | | | | [phone] | | imbalance risk; | | | | | | Hypoalbuminemia; | | | | | | SIRS (systemic | | | | | | inflammatory | | | | | | response syndrome) | | | | | | (HCC); Infection | | | | | | associated with | | | | | | peritoneal dialysis | | | | | | catheter, initial | | | | | | encounter (HCC); | | | | | | Ovarian mass, right | +--------+ + + + + [...] + + + | Blood Pressure | 106/53 | 02/15/2019 11:01 AM | | | | | PDT | | + + + + + | Pulse | 73 | 02/15/2019 11:01 AM | | | | | PDT | | + + + + + | Temperature | 36.7 C (98 F) | 02/15/2019 11:01 AM | | | | | PDT | | + + + + + | Respiratory Rate | 16 | 02/15/2019 11:01 AM | | | | | PDT | | + + + + + | Oxygen Saturation | - | - | | + + + + + | Inhaled Oxygen | - | - | | | Concentration | | | | + + + + + | Weight | 82.1 kg (181 lb) | 02/15/2019 11:01 AM | | | | | PDT | | + + + + + | Height | 157.5 cm (5' 2") | 02/15/2019 11:01 AM | | | | | PDT | | + + + + + | Body Mass Index | 33.11 | 02/15/2019 11:01 AM | | | | | PDT | | + + + + + documented in this encounter Discharge Summaries Ginger Bass MD - 02/15/2019 11:41 AM PDT Discharge Summaries by Ginger Bass MD at 02/15/19 1141 Author: Ginger Bass MD Service: Hospitalist Author Type: Physician Filed: 02/16/19 0450 Date of Service: 02/15/19 1141 Status: Signed Power Wood Sawyer: Ginger Bass MD (Physician) Related Notes: Original Note by Ginger Bass MD (Physician) filed at 02/15/19 1143 [facility]: Hospitalist Physician Discharge Summary Patient ID: Ramona Oconnor 1980 39 y.o. Admit date: 02/01/2019 Discharge date: 02/15/2019 Admitting Physician: Karen Roque DO Discharge Physician: Ginger Bass MD Consultants: Treatment Team: Consulting Physician: Qasim Pederson MD Consulting Physician: Cathie Marroquin MD Admitting Provider: Karen Roque DO Primary Discharge Diagnoses: Peritoneal dialysis catheter infection (HCC) Secondary Discharge Diagnoses: Gastroesophageal reflux disease without esophagitis Anemia in ESRD (end-stage renal disease) (HCC) End-stage renal disease (HCC) Cyst of right ovary Resolved Problems: Gastroenteritis Prolonged Q-T interval on ECG SIRS (systemic inflammatory response syndrome) (HCC) Procedures Performed: Procedure(s) (LRB): DIALYSIS CATHETER - REMOVAL (N/A) HPI and Hospital Course: A 39-year-old female with history of recurrent peritonitis associated with peritoneal dialy sis catheter, end-stage renal disease, admitted with abdominal pain and leukocytosis. Infec tious Diseases and Nephrology were consulted. HOSPITAL COURSE: The patient was admitted with abdominal pain, leukocytosis and possible p eritonitis. She was started on vancomycin and Zosyn and the patient continued to have leuko cytosis and then she was started on meropenem. Her blood cultures remained negative. She c ompleted vancomycin and will be discharged to complete a course of meropenem. She will foll ow up outpatient for antibiotics. The patient had her peritoneal dialysis catheter removed a nd tunneled dialysis catheter was placed. Patient also had anemia of chronic disease, hemoglobin has remained stable. She has a hist ory of adjustment disorder and will be continued on trazodone. The patient had prolonged QT at admission and Zofran was discontinued. She has a history of right ovarian cyst and alex ent will have outpatient follow up with [facility] to rule out malignancy. [facility] referral has been se coronado. Plan discussed in detail with the patient and all data reviewed with the patient and all questions have been answered. Discharged Condition: Stable for discharge as stated above. Significant Diagnostic Studies: No results found. Discharge Vitals: Vitals: 02/15/19 1000 02/15/19 1015 02/15/19 1027 02/15/19 1035 BP: 129/74 116/72 107/69 106/53 BP Location: Left upper arm Pulse: 75 75 74 73 Resp: 16 16 16 16 Temp: 98 F (36.7 C) TempSrc: Oral SpO2: 100% 98% 100% 100% Weight: 82.1 kg (181 lb) Height: Discharge Exam: General: Well nourished. Psych: Alert and oriented x 3. Calm, cooperative. Cardiovascular: Regular rate and rhythm, no murmurs, no thrills. Normal PMI. Respiratory: Clear to auscultation, no wheezing or crackles, breathing non labored. Tunnel ed catheter present right chest wall. Gastrointestinal: Soft, non-tender, non-distended, positive bowel sounds. No HSM. Musculoskeletal: No edema in bilateral lower extremities. No joint swelling. Skin: Warm and dry, no rashes. Neck: No JVD, Trachea midline. Neurological: Non focal. Motor grossly intact. LABS: Recent Labs Lab 02/15/19 0438 02/14/19 0416 02/13/19 0433 WBC 9.63 11.19* 9.87 RBC 3.20* 3.44* 3.28* HGB 9.8* 10.6* 10.0* HCT 29.5* 32.1* 30.5* MCV 92.2 93.2 93.1 MCH 30.6 30.8 30.6 MCHC 33.2 33.1 32.9 RDW 49.4 51.6 52.1 PLT 305 303 307 MPV 8.4 8.7 8.5 DIFFTYPE AUTOMATED AUTOMATED MANUAL Recent Labs Lab 02/15/19 0438 02/14/19 0416 02/13/19432 NA 140 140 140 K 4.4 4.5 4.2 CL 105 102 103 CO2 24 26 28 BUN 28* 20 14 CREATININE 10.6* 8.5* 6.1* GLUF 106* 84 85 No results for input(s): CKTOTAL, TROPONINI, TROPONINT, CKMBINDEX in the last 168 hours. No results for input(s): PHOS in the last 168 hours. No results for input(s): MG in the last 168 hours. Invalid input(s): ABG Disposition: Home Follow [place]: [place] [address] [facility] [address] Schedule an appointment as soon as possible for a visit in 3 days Santos Chi MD [address] [facility] [place] [id number] Schedule an appointment as soon as possible for a visit in 1 week Alonzo Correa MD [address] [facility] [phone] Schedule an appointment as soon as possible for a visit in 1 week Medication List START taking these medications meropenem IVPB QTY: 12 Doses Refills: 0 Doctor's comments: Give at night time Commonly known as: MERREM Inject 0.5 g into the vein daily for 12 days. Dilute in appropriate volume of IV fluid and give by slow IV infusion. CHANGE how you take these medications sevelamer 800 MG tablet QTY: 90 tablet Refills: 0 Commonly known as: RENVELA Take 2 tablets by mouth 3 (three) times daily with meals. What changed: how much to take CONTINUE taking these medications LORazepam 1 MG tablet Refills: 0 Commonly known as: ATIVAN omeprazole 20 MG capsule Refills: 0 Commonly known as: PRILOSEC promethazine 25 MG tablet Refills: 0 Commonly known as: PHENERGAN traZODone 100 MG tablet Refills: 0 Commonly known as: DESYREL You might also be taking other medications not listed above. If you have questions about an y of your other medications, talk to the person who prescribed them or your Primary Care Pro vider. STOP taking these medications amLODIPine 2.5 MG tablet Commonly known as: NORVASC gentamicin 0.1 % ointment Commonly known as: GARAMYCIN ondansetron 8 MG tablet Commonly known as: ZOFRAN Where to Get Your Medications You can get these medications from any pharmacy Bring a paper prescription for each of these medications meropenem IVPB sevelamer 800 MG tablet Ginger Bass MD 02/15/2019 11:41 AM Code Status: Full Code Discharge took 40 minutes, to include final examination, discussion of admission, and prep aration of prescriptions, instructions for ongoing care, follow up and dictation of summary. This entry has been created using [employer] Speech Recognition software and [employer]. The entry has been reviewed and there may still exist sound alike word errors. documented in th is encounter Medications at Time of Discharge + [...] Progress Notes Conversion Transaction, Provider Unknown - 02/15/2019 2:56 PM PDTFormatting of this note m ight be different from the original. Progress Notes by Soo Portillo at 02/15/19 4785 Author: Soo Portillo Service: Nephrology Author Type: Coordinator Filed: 02/15/19 6307 Date of Service: 02/15/19 435 Status: Signed Power Wood Sawyer: Soo Portillo (Coordinator) Patients chair time is: Friday @ 10:30am-PLEASE ARRIVE FIRST DAY ONLY 02-17-19 AT 9:30AM Kimber Vieira [address] [place] [address] Thank you onver patric Transaction, Provider Unknown - 02/15/2019 1:14 PM PDT Case Management by Lilo Iqbal RN at 02/15/19 1314 Author: Lilo Iqbal RN Service: (none) Author Type: Registered Nurse Filed: 02/15/19 1501 Date of Service: 02/15/19 1314 Status: Addendum Power Wood Sawyer: Lilo Iqbal RN (Registered Nurse) Related Notes: Original Note by Lilo Iqbal RN (Registered Nurse) filed a t 02/15/19 1438 Pt's dialysis chair time has been moved to 10:30 am M/W/F, pt and AVS have been updated. Disposition: home with IV infusions at [facility] has been updated Transportation: family to transport Patient and family in agreement with discharge plan Medicare important message (Given or N/A): given Lilo Iqbal RN onver patric Transaction, Provider Unknown - 02/15/2019 8:30 AM PDT Case Management by Lilo Iqbal RN at 02/15/19829 Author: Lilo Iqbal RN Service: (none) Author Type: Registered Nurse Filed: 02/15/19 7750 Date of Service: 02/15/19829 Status: Addendum Power Wood Sawyer: Llio Iqbal RN (Registered Nurse) Related Notes: Original Note by Lilo Iqbal RN (Registered Nurse) filed a t 02/15/19 8083 notified Kimber Vieira that pt will not be making her dialysis appt today. Due to pt's Home Health orders possibly not going through until Friday and pt's preferri ng OPP vs Home Infusions, KARTHIK contacted Soo, dialysis coordinator, to see if pt's dialysis chair time can be pushed up in order for her to make her IV abx infusions time in [facility]. Soo will return call to . KARTHIK contacted [facility] to verify abx order had been received and they would be able to place peripheral IV's for daily infusions. RN agreed. KARTHIK received a call back from Soo stating [facility] [place], [facility] are completely booked and are unable to accommodate an earlier dialysis time for pt to allow mor e time for her to travel. KARTHIK verified with route sales driver that pt should have dialysis complete d by 3:00 pm everyday. CM updated pt and pt's spouse regarding travel time and they are in a greement with the plan. KARTHIK contacted [facility] that states they can push the pt's abx infusions to 5:30 pm. CM scheduled pt's abx infusions to start tomorrow 02/16 at 5:30 pm. MICHELLE Curran from [facility] she will try to get approval for gas vouchers to p pamelagaro to the pt. CM discussed with MICHELLE Charlesfinance business manager from [facility], to verify that pt's insuran ce will cover the cost of the abx therapy as it is out of the state of [place]. Araceli returned call back to CM stating that [facility] [place] is in pt's insurance ne twork and will not require a prior auth. Araceli will contact pt and pt's to verify out of pocket cost. onver patric Transaction, Provider Unknown - 02/15/2019 5:37 AM PDT Nurse Progress Note by Fred Prater RN at 02/15/19536 Author: Fred Prater RN Service: (none) Author Type: Registered Nurse Filed: 02/15/19539 Date of Service: 02/15/19536 Status: Signed Power Wood Sawyer: Fred Prater RN (Registered Nurse) Pt has been alert and oriented x4, VSS, dressing on the RLQ abd appears to be clean, dry an d intact. Pt has c/o pain x1 and nausea x1. She has been medicated with PO NORCO and Phenerg an. HD is to be done this am at 0600. Chart has been reviewed and will continue to monitor. Fred Prater RN. onver patric Transaction, Provider Unknown - 02/14/2019 6:40 PM PDT Nurse Progress Note by Jalil More RN at 02/14/191839 Author: Jalil More RN Service: (none) Author Type: Registered Nurse Filed: 02/14/191840 Date of Service: 02/14/191839 Status: Signed Power Wood Sawyer: Jalil More RN (Registered Nurse) Patient resting in room with family at bedside. VSS during shift. Phenergan given for nause a in composing room machinist with good relief. Dialysis scheduled for 6 am on 02/15/19. No further acute changes from previous assessment. Chart review complete. JALIL MORE iana spivey Transaction, Provider Unknown - 02/14/2019 3:34 PM PDT Progress Notes by Stepan Carey RPH at 02/14/19 1534 Author: Stepan Carey RPH Service: Pharmacy Author Type: Pharmacist Filed: 02/14/19 1534 Date of Service: 02/14/191533 Status: Signed Power Wood Sawyer: Stepan Carey RPH (Pharmacist) Vancomycin Monitoring Subjective Pharmacy to dose vancomycin per protocol. Diagnosis: Abdominal Infection. Vancomycin Day: 6 Objective Lab Results Component Value Date/Time CREATININE 8.5 (H) 02/14/2019 04:16 AM WBC 11.19 (H) 02/14/2019 04:16 AM Wt= 80 kg, CrCl= HD patient, Tmax afeb Cultures= MRSA Nare - neg; Bloodx2 [id number]; Body fluid/peritoneal fluid - NGTD. Other A bx= Meropenem. Current Vancomycin Dose = HD protocol Assessment Trough goal: 15- 20 ug/mL, Plan Continue vancomycin HD protocol. No levels indicated at this time. No HD documented for today. Pharmacist: Stepan Carey Ginger Caballero MD - 02/14/2019 10:46 AM PDTFormatting of this note might be different from t brant original. Progress Notes by Ginger Bass MD at 02/14/19 1046 Author: Ginger Bass MD Service: Hospitalist Author Type: Physician Filed: 02/14/19 1322 Date of Service: 02/14/19 104 Status: Signed Power Wood Sawyer: Ginger Bass MD (Physician) [facility]: Hospitalist Progress Note Hospital Day: LOS: 13 days SUBJECTIVE Patient Summary: 39-year-old female with history of hypertension, GERD, esophagitis, e nd-stage renal disease on peritoneal dialysis admitted with peritonitis. ID and nephrology consulted. She had PD catheter removed with subsequent tunnel catheter placement. Events Overnight: Patient states that she is doing well. She wants to go home. Scheduled Medications heparin (porcine) 5000 unit/0.5mL 5,000 Units Subcutaneous 2 times per day meropenem 500 mg Intravenous Q24H pantoprazole 40 mg Oral QAM AC sevelamer 1,600 mg Oral TID WC sodium chloride (PF) 10 mL Intravenous Q8H traZODone 100 mg Oral Nightly vancomycin 1,000 mg Intravenous See Admin Instructions Continuous Infusions dextrose PRN Medications acetaminophen OR acetaminophen, dextrose, dextrose, dextrose, fentaNYL OR fentaNYL, glucagon, glucagon, HYDROcodone-acetaminophen OR HYDROcodone-acetaminophen, LORazepam, polyethylene glycol, promethazine OBJECTIVE Vital Signs: BP 98/57 (BP Location: Right upper arm) | Pulse 82 | Temp 98.8 F (37.1 C) (Axillary) | Resp 18 | Ht 1.575 m (5' 2") | Wt 80 kg (176 lb 5.9 oz) | SpO2 96% | ? N o | BMI 32.26 kg/m Patient Vitals for the past 24 hrs: BP Temp Temp src Pulse Resp SpO2 02/14/19 0800 98/57 98.8 F (37.1 C) Axillary 82 18 96 % 02/14/19 0343 101/58 98.8 F (37.1 C) Oral 81 18 96 % 02/13/19 2302 100/51 98.1 F (36.7 C) Oral 87 17 98 % 02/13/19 1905 110/57 98.3 F (36.8 C) Oral 82 18 100 % 02/13/19 1559 117/74 98.2 F (36.8 C) Oral 72 18 98 % 02/13/19 1146 114/67 98.7 F (37.1 C) Oral 86 16 99 % Intake/Output Summary (Last 24 hours) at 02/14/19 1109 Last data filed at 02/14/19 0512 Gross per 24 hour Intake 767 ml Output 0 ml Net 767 ml Physical Exam: Constitutional: Alert and oriented to person, place, and time. Appears well-developed and w ell-nourished. Lying in bed. HEENT: Neck supple, no JVD, non icteric sclera. Cardiovascular: Normal rate, regular rhythm, normal heart sounds with S1 and S2, Exam re veals no gallop and no friction rub. No murmur heard. No S3, No S4 Pulmonary/Chest: Effort normal and breath sounds normal. No stridor. No respiratory distres s. no wheezes. no rales. exhibits no tenderness. Tunneled catheter present over the left c hest wall. Abdominal: Soft. Bowel sounds are normal. exhibits no distension and no mass. There is no t enderness. There is no rebound and no guarding. Extremeties/Musculoskeletal: exhibits no edema. Neurological: Alert and oriented to person, place, and time. Skin: Skin is warm and dry. Psychiatric: Normal mood. DATA Recent Labs Lab 02/14/1941502/13/1943202/12/19 0549 WBC 11.19* 9.87 11.02* RBC 3.44* 3.28* 3.29* HGB 10.6* 10.0* 9.9* HCT 32.1* 30.5* 30.4* MCV 93.2 93.1 92.4 MCH 30.8 30.6 30.2 MCHC 33.1 32.9 32.7 RDW 51.6 52.1 52.5 PLT 303 307 308 MPV 8.7 8.5 8.8 DIFFTYPE AUTOMATED MANUAL AUTOMATED Recent Labs Lab 02/14/1941502/13/1943202/12/19 0549 NA 140 140 141 K 4.5 4.2 4.2 CL 102 103 104 CO2 26 28 27 BUN 20 14 23 CREATININE 8.5* 6.1* 8.9* GLUF 84 85 81 No results for input(s): CKTOTAL, TROPONINI, TROPONINT, CKMBINDEX in the last 168 hours. No results for input(s): PHOS in the last 168 hours. No results for input(s): MG in the last 168 hours. Invalid input(s): ABG No results for input(s): CALCIUM in the last 168 hours. No results for input(s): APTT, INR, PTT in the last 168 hours. No results found. PROBLEM LIST Principal Problem: Peritoneal dialysis catheter infection (HCC) Active Problems: Gastroesophageal reflux disease without esophagitis Anemia in ESRD (end-stage renal disease) (HCC) End-stage renal disease (HCC) Cyst of right ovary ASSESSMENT & PLAN Recurrent peritoneal dialysis catheter associated peritonitis. Status post removal of PD c atheter. Patient remains afebrile and white count is trending up. We will continue meropene m . Blood cultures show no growth. Fluid culture shows no growth. End-stage renal disease. Nephrology consulted for hemodialysis. We will continue Renvela. Anemia of chronic disease. Hemoglobin is stable. GI prophylaxis. We will continue Protonix. DVT prophylaxis. We will continue heparin. Adjustment disorder. We will continue trazodone. Plan discussed with patient and her . All questions were answered . All data was re viewed. Disposition: Inpatient Code Status: Full Code Ginger Bass MD 02/14/2019 11:09 AM This entry has been created using [employer] Speech Recognition software and [employer]. The entry has been reviewed and there may still exist sound alike word errors. onversion Trans action, Provider Unknown - 02/14/2019 6:14 AM PDT Nurse Progress Note by Shelli Mukherjee RN at 02/14/19613 Author: Shelli Mukherjee RN Service: (none) Author Type: Registered Nurse Filed: 02/14/19614 Date of Service: 02/14/19613 Status: Signed Power Wood Sawyer: Shelli Mukherjee RN (Registered Nurse) A/Ox4. VSS. Medicated for pain and nausea once. No acute changes from previous shift. E nd of shift and 24 hour chart review complete. Shelli Mukherjee RN 6:15 AM onver patric Transaction, Provider Unknown - 02/13/2019 7:00 PM PDT Nurse Progress Note by Jalil More RN at 02/13/191899 Author: Jalil More RN Service: (none) Author Type: Registered Nurse Filed: 02/13/191901 Date of Service: 02/13/191899 Status: Signed Power Wood Sawyer: Jalil Benguiat, RN (Registered Nurse) Patient nauseated at beginning of shift. Phenergan given with good results. No c/o pain thi s shift. VSS. No further acute changes from previous assessment. Chart review complete. JALIL MORE Ginger Caballero MD - 02/13/2019 12:54 PM PDTFormatting of this note might be different from t brant original. Progress Notes by Ginger Bass MD at 02/13/19 4404 Author: Ginger Bass MD Service: Hospitalist Author Type: Physician Filed: 02/13/19 4775 Date of Service: 02/13/19 1252 Status: Signed Power Wood Sawyer: Ginger Bass MD (Physician) [facility]: Hospitalist Progress Note Hospital Day: LOS: 12 days SUBJECTIVE Patient Summary: 39-year-old female with history of hypertension, GERD, esophagitis, e nd-stage renal disease on peritoneal dialysis admitted with peritonitis. ID and nephrology consulted. She had PD catheter removed with subsequent tunnel catheter placement. Events Overnight: Patient wants to go home. She denies any complaints. Scheduled Medications heparin (porcine) 5000 unit/0.5mL 5,000 Units Subcutaneous 2 times per day meropenem 500 mg Intravenous Q24H pantoprazole 40 mg Oral QAM AC sevelamer 1,600 mg Oral TID WC sodium chloride (PF) 10 mL Intravenous Q8H traZODone 100 mg Oral Nightly vancomycin 1,000 mg Intravenous See Admin Instructions Continuous Infusions dextrose PRN Medications acetaminophen OR acetaminophen, dextrose, dextrose, dextrose, fentaNYL OR fentaNYL, glucagon, glucagon, HYDROcodone-acetaminophen OR HYDROcodone-acetaminophen, LORazepam, polyethylene glycol, potassium chloride OR potassium chloride OR potassium chloride, promethazine OBJECTIVE Vital Signs: BP 114/67 (BP Location: Right upper arm) | Pulse 86 | Temp 98.7 F (37.1 C) (Oral) | Resp 16 | Ht 1.575 m (5' 2") | Wt 80 kg (176 lb 5.9 oz) | SpO2 99% | ? No | BMI 32.26 kg/m Patient Vitals for the past 24 hrs: BP Temp Temp src Pulse Resp SpO2 02/13/19 1146 114/67 98.7 F (37.1 C) Oral 86 16 99 % 02/13/19 0851 106/60 98.3 F (36.8 C) Oral 81 16 99 % 02/13/19 0247 99/54 98.3 F (36.8 C) Oral 77 16 96 % 02/12/19 2352 112/57 98.9 F (37.2 C) Oral 92 20 100 % 02/12/19 1936 148/72 98.7 F (37.1 C) Oral 76 20 100 % 02/12/19 1549 108/59 98.9 F (37.2 C) Oral 84 20 100 % Intake/Output Summary (Last 24 hours) at 02/13/19 1312 Last data filed at 02/13/19 1147 Gross per 24 hour Intake 843 ml Output 0 ml Net 843 ml Physical Exam: Constitutional: Alert and oriented to person, place, and time. Appears well-developed and w ell-nourished. HEENT: Neck supple, no JVD, non icteric sclera. Cardiovascular: Normal rate, regular rhythm, normal heart sounds with S1 and S2, Exam re veals no gallop and no friction rub. No murmur heard. No S3, No S4 Pulmonary/Chest: Effort normal and breath sounds normal. No stridor. No respiratory distres s. no wheezes. no rales. exhibits no tenderness. Tunneled catheter present over the left c hest wall. Abdominal: Soft. Bowel sounds are normal. exhibits no distension and no mass. There is no t enderness. There is no rebound and no guarding. Extremeties/Musculoskeletal: exhibits no edema. Neurological: Alert and oriented to person, place, and time. Skin: Skin is warm and dry. Psychiatric: Appears depressed. DATA Recent Labs Lab 02/13/19 0433 02/12/19 0549 02/11/19 0608 WBC 9.87 11.02* 11.67* RBC 3.28* 3.29* 3.15* HGB 10.0* 9.9* 9.5* HCT 30.5* 30.4* 29.1* MCV 93.1 92.4 92.3 MCH 30.6 30.2 30.1 MCHC 32.9 32.7 32.6 RDW 52.1 52.5 51.6 PLT 307 308 280 MPV 8.5 8.8 8.8 DIFFTYPE MANUAL AUTOMATED MANUAL Recent Labs Lab 02/13/19 0433 02/12/19 0549 02/11/19 0608 NA 140 141 140 K 4.2 4.2 4.0 CL 103 104 102 CO2 28 27 29 BUN 14 23 15 CREATININE 6.1* 8.9* 6.5* GLUF 85 81 97 No results for input(s): CKTOTAL, TROPONINI, TROPONINT, CKMBINDEX in the last 168 hours. No results for input(s): PHOS in the last 168 hours. No results for input(s): MG in the last 168 hours. Invalid input(s): ABG No results for input(s): CALCIUM in the last 168 hours. No results for input(s): APTT, INR, PTT in the last 168 hours. No results found. PROBLEM LIST Principal Problem: Peritoneal dialysis catheter infection (HCC) Active Problems: Gastroenteritis End-stage renal disease (HCC) Cyst of right ovary ASSESSMENT & PLAN Recurrent peritoneal dialysis catheter associated peritonitis. Status post removal of PD c atheter. Patient remains afebrile and white count is within normal limits. We will continu e meropenem and vancomycin. Leukocytosis has resolved. Blood cultures show no growth. Flu id culture shows no growth. End-stage renal disease. Nephrology consulted for hemodialysis. We will continue Renvela. Anemia of chronic disease. Hemoglobin is stable. GI prophylaxis. We will continue Protonix. DVT prophylaxis. We will continue heparin. Prolonged QTC. Resolved. Adjustment disorder. We will continue trazodone. Unable to arrange for outpatient IV antibiotics. This was discussed with patient and ida watts. Plan discussed with patient and her . All questions were answered . All data was re viewed. Disposition: Inpatient Code Status: Full Code Ginger Bass MD 02/13/2019 1:12 PM This entry has been created using [employer] Speech Recognition software and [employer]. The entry has been reviewed and there may still exist sound alike word errors. Linden Kincaid MD - 02/13/2019 11:16 AM PDT Progress Notes by Linden Alonzo MD at 02/13/191115 Author: Linden Alonzo MD Service: Nephrology Author Type: Physician Filed: 02/13/192106 Date of Service: 02/13/191115 Status: Signed Power Wood Sawyer: Linden Alonzo MD (Physician) [facility]: NEPHROLOGY Progress Note Ramona Oconnor 39 y.o. [id number] female [facility] Day: LOS: 12 days Patient with PMH as listed below admitted with nausea vomiting, abdominal pain and recurren t PD associated peritonitis, after discussion with the family PD catheter removed and patien t switched to hemodialysis Nephrology consulted for evaluation and management of ESRD CHRONIC SEVERE ASSOCIATED WITH FLUID ELECTROLYTE IMBALANCES Assess need for hd/uf PD catheter removed 02/04/19, Got HD catheter placed 02/05/19 SUBJECTIVE at bedside Seen and examined feels ok, abdominal pain improved DENIES CHEST PAIN, SOB, VOMITING, DIARRHEA, FEVER, [...] 10/25/15 showed normal sized kidneys. 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 GERD (gastroesophageal reflux disease) Hypercalcemia 09/07/2017 Hyperphosphatemia 10/28/2015 Hypocalcemia 10/28/2015 Hypokalemia 06/04/2017 Itching 10/28/2015 Metabolic acidosis 10/28/2015 Obesity Peritonitis associated with peritoneal dialysis (HCC) 01/24/2017 Peritonitis due to infected peritoneal dialysis catheter (HCC) 12/08/2018 Secondary hyperparathyroidism (HCC) Uremia 10/28/2015 Past Surgical History Procedure Laterality Date CATHETER REMOVAL N/A 02/04/2019 Procedure: DIALYSIS CATHETER - REMOVAL; Surgeon: Qasim Pederson MD; Location: [facility] MAIN OR ; Service: Vascular; Laterality: N/A; Infected PD catheter removal ESOPHAGOGASTRODUODENOSCOPY N/A 09/10/2017 Procedure: ESOPHAGOGASTRODUODENOSCOPY; Surgeon: Beena Peters MD; Location: [facility] ENDOSCOP Y; Service: Gastroenterology; Laterality: N/A; PERITONEAL CATHETER INSERTION N/A 10/28/2015 Procedure: LAPAROSCOPIC - PERITONEAL DIALYSIS CATH INSERTION; Surgeon: Mundo Ramos MD; Lo cation: [facility] MAIN OR; Service: Vascular; Laterality: [...] is a former smoker. Scheduled Medications heparin (porcine) 5000 unit/0.5mL 5,000 Units Subcutaneous 2 times per day meropenem 500 mg Intravenous Q24H pantoprazole 40 mg Oral QAM AC sevelamer 1,600 mg Oral TID WC sodium chloride (PF) 10 mL Intravenous Q8H traZODone 100 mg Oral Nightly vancomycin 1,000 mg Intravenous See Admin Instructions Continuous Infusions dextrose PRN Medications acetaminophen OR acetaminophen, dextrose, dextrose, dextrose, fentaNYL OR fentaNYL, glucagon, glucagon, HYDROcodone-acetaminophen OR HYDROcodone-acetaminophen, LORazepam, polyethylene glycol, potassium chloride OR potassium chloride OR potassium chloride, promethazine Allergy: No Known Allergies OBJECTIVE Vital Signs: BP 106/60 (BP Location: Right upper arm) | Pulse 81 | Temp 98.3 F (36.8 C) (Oral) | Resp 16 | Ht 1.575 m (5' 2") | Wt 80 kg (176 lb 5.9 oz) | SpO2 99% | ? No | BMI 32.26 kg/m I&O Detailed Table: I/O last 3 completed shifts: In: 1974 [P.O.:568; I.V.:407; Other:1000] Out: 3000 [Other:3000] Weight change: -1.829 kg (-4 lb 0.5 oz) Examination: APPEARANCE: The patient is lying in the bed in no distress, sleepy but ariusable VITALS: Reviewed as listed. EYES: +ve pale conjunctiva LUNGS: Clear to auscultation bilaterally. HEART: S1, S2, no pericardial rub noted. ABDOMEN: Full, soft, NT EXTREMITIES: no pedal edema noted. NEUROLOGIC: No gross focal motor deficit noted, no Asterixis. PSYCH: The patient is sleepy but arousable, mood and affect looks ok R IJ HD CATHETER in place LABS: Recent Results (from the past 24 hour(s)) Basic metabolic panel Collection Time: 02/13/19 4:33 AM Result Value Ref Range SODIUM 140 135 - 145 mmol/L POTASSIUM 4.2 3.5 - 4.9 mmol/L CHLORIDE 103 99 - 109 mmol/L CO2 28 23 - 32 mmol/L ANION GAP AGAP 13 5 - 20 mmol/L GLUCOSE 85 65 - 99 mg/dL BUN 14 8 - 25 mg/dL CREATININE 6.1 (H) 0.50 - 1.00 mg/dL BUN/CREAT 2 CALCIUM 8.0 (L) 8.5 - 10.5 mg/dL EGFR 8 (L) >60 mL/min/1.73m2 CBC W/Auto Diff (Reflex to Manual) Collection Time: 02/13/19 4:33 AM Result Value Ref Range WBC 9.87 3.80 - 11.00 K/uL RBC 3.28 (L) 3.70 - 5.10 M/uL HGB 10.0 (L) 11.3 - 15.5 g/dL HCT 30.5 (L) 34.0 - 46.0 % MCV 93.1 80.0 - 100.0 fl MCH 30.6 27.0 - 34.0 pg MCHC 32.9 32.0 - 35.5 g/dL RDW SD 52.1 37 - 53 fl PLT 307 150 - 400 K/uL MPV 8.5 fl DIFF TYPE MANUAL Neutrophils Manual 66 % Bands 1 % Lymphocytes Manual 25 % Monocytes Manual 3 % Eosinophils Manual 5 % Neutrophils Absolute 6.51 1.90 - 7.40 K/uL Bands Manual 0.10 0.00 - 0.20 K/uL Lymphocytes Absolute 2.47 1.00 - 3.90 K/uL Monocytes Absolute 0.30 0.00 - 0.80 K/uL Eosinophils Absolute 0.49 0.00 - 0.50 K/uL MORPHOLOGY RBC AND PLT MORPHOLOGY APPEAR NORMAL Imaging No results found. PROBLEM LIST Principal Problem: SIRS (systemic inflammatory response syndrome) (HCC) Active Problems: Gastroenteritis End-stage renal disease (HCC) Prolonged Q-T interval on ECG Cyst of right ovary Peritoneal dialysis catheter infection (HCC) ASSESSMENT & PLAN ESRD ON HD No need for Hemodialysis/ultrafiltration per fluid electrolyte acid base balance point of v iew Assess daily for need for hd & uf PD catheter removed 02/04/19, Got HD catheter placed 02/05/19 Fluid restriction 1.2 litres/24 hours Strict I & O Daily RFP Renal diet Daily weights will help with subsequent hd with uf Dose all meds per protocol for ESRD on hd ANEMIA in ESRD stable EPOGEN TO KEEP HGB 10-11 Lab Results Component Value Date HGB 10.0 (L) 02/13/2019 HGB 9.9 (L) 02/12/2019 HGB 9.5 (L) 02/11/2019 FERRITIN 56 10/27/2015 LABIRON 12 (L) 10/27/2015 HYPERTENSION Controlled WATCH BP CLOSELY DURING HOSPITALIZATION LOW NA DIET Will adjust BP meds according to BP readings BP Readings from Last 3 Encounters: 02/13/19 106/60 01/09/19 105/55 12/27/18 104/63 HYPERPHOSPHATEMIA Worsened LOW P DIET PO4 BINDERS, increased Renvela 2 tab with meals Lab Results Component Value Date PHOS 6.0 (H) 02/04/2019 PHOS 5.6 (H) 02/03/2019 PHOS 5.4 (H) 02/01/2019 HYPOALBUMINEMIA INCREASE PROTEIN INTAKE Lab Results Component Value Date ALB 2.9 (L) 02/04/2019 ALB 1.8 (L) 02/03/2019 ALB 2.0 (L) 02/02/2019 Recurrent PD associated Peritonitis On vanco/ Meropenem per ID Fluid c/s ngtd CASE DISCUSSED IN DETAIL WITH PATIENT/ care team, ANSWERS ALL QUESTIONS IN DETAIL, VERBALIZ ES UNDERSTANDING LINDEN ALONZO MD 02/13/2019 JUAN F QUAEMPGORAN Seen earlier and charting completed later Dictation software, bLife, used which may contain error for similar sounding words even af ter review. Personal communication requested for any clarification. Portions of my notes may have been carried over for continuity of care. onversion Transaction, Provider Unknown - 02/13/2019 5:53 AM PDTFormatting of this note might be different from t he original. Nurse Progress Note by Shelli Mukherjee RN at 02/13/19552 Author: Shelli Mukherjee RN Service: (none) Author Type: Registered Nurse Filed: 02/13/19554 Date of Service: 02/13/19552 Status: Signed Power Wood Sawyer: Shelli Mukherjee RN (Registered Nurse) A/Ox4. VSS. Pain medication given x2. stayed with pt overnight. No acute change s from previous shift. End of shift and 24 hour chart review complete. Shelli Mukherjee RN 5:55 AM onver patric Transaction, Provider Unknown - 02/12/2019 7:42 PM PDT Nurse Progress Note by Jalil More RN at 02/12/191941 Author: Jalil More RN Service: (none) Author Type: Registered Nurse Filed: 02/12/191942 Date of Service: 02/12/191941 Status: Signed Power Wood Sawyer: Jalil More RN (Registered Nurse) Patient continues to rest comfortably with at bedside. Medicated for pain x 1 this shift. Able to ambulate to BR with assist. VSS, No further acute changes from previous asses sment. Chart review ocmplete. JALIL MORE Esteban Yoder MD - 02/12/2019 4:29 PM PDTFormatting of this note might be different from the or iginal. Progress Notes by Esteban العلي MD at 02/12/19 2624 Author: Esteban العلي MD Service: Internal Medicine Author Type: Physician Filed: 02/12/19 3458 Date of Service: 02/12/19 1629 Status: Signed Power Wood Sawyer: Esteban العلي MD (Physician) [facility]: Hospitalist Progress Note Hospital Day: LOS: 11 days SUBJECTIVE Feels good Tired of being here Wants to go home Patient Summary: Ms. Oconnor is a 38 yr old man with lady with HTN, GERD with esophagitis, hx of diverticuli tis and ESRD on CAPD, with recurrent culture negative bacterial peritonitis x3 presented to the ED on 02/01/19 at [facility] for abdominal pain, nausea, vomiting and diarrhea, transferred to [facility] for further management. She was afebrile but hypotensive on presentation. Her labs showed leukocytosis with bandemia. PD fluid analysis however showed w bc of 622 with 48% segs. She had elevated procalcitonin. ID has been consulted and currently on IP antibiotic. Removal of PD catheter was discussed with the patient. She was initially upset but later on agreed. Patient was referred to vascular surgery and had her PD cath rem dom on 02/04/19. She had a tunneled catheter placed on 02/05/19. Patient has been accepted to continue HD at [place] dialysis on a MWF schedule. Was on fortaz but continues on fevers, wbc ^. Changed to vanco, merrem. Abdominal better, no fevers, and wbc improved. Plan for iv merrem for 14 days till 02/23/19 and vanco till 4/7 CM assisting for outpt outpt setup Scheduled Medications heparin (porcine) 5000 unit/0.5mL 5,000 Units Subcutaneous 2 times per day meropenem 500 mg Intravenous Q24H pantoprazole 40 mg Oral QAM AC sevelamer 800 mg Oral TID WC sodium chloride (PF) 10 mL Intravenous Q8H traZODone 100 mg Oral Nightly vancomycin 1,000 mg Intravenous See Admin Instructions Continuous Infusions dextrose PRN Medications acetaminophen OR acetaminophen, dextrose, dextrose, dextrose, fentaNYL OR fentaNYL, glucagon, glucagon, HYDROcodone-acetaminophen OR HYDROcodone-acetaminophen, LORazepam, polyethylene glycol, potassium chloride OR potassium chloride OR potassium chloride, promethazine OBJECTIVE Vital Signs: BP 108/59 (BP Location: Right upper arm) | Pulse 84 | Temp 98.9 F (37.2 C) (Oral) | Resp 20 | Ht 1.575 m (5' 2") | Wt 80 kg (176 lb 5.9 oz) | SpO2 100% | ? No | BMI 32.26 kg/m Patient Vitals for the past 24 hrs: BP Temp Temp src Pulse Resp SpO2 Weight 02/12/19 1549 108/59 98.9 F (37.2 C) Oral 84 20 100 % - 02/12/19 1136 100/58 98.2 F (36.8 C) Oral 90 20 100 % - 02/12/19 1030 - 98 F (36.7 C) - 81 20 - - 02/12/19 1025 115/68 - - 84 20 - 80 kg (176 lb 5.9 oz) 02/12/19 1015 116/69 - - 73 20 100 % - 02/12/19 1000 116/69 - - 71 20 100 % - 02/12/19 0945 108/66 - - 80 20 99 % - 02/12/19 0930 111/66 - - 78 20 - - 02/12/19 0915 121/68 - - 74 20 99 % - 02/12/19 0900 117/67 - - 69 20 98 % - 02/12/19 0845 117/64 - - 70 20 99 % - 02/12/19 0830 127/75 - - 72 20 98 % - 02/12/19 0815 127/75 - - 68 20 99 % - 02/12/19 0800 109/59 - - 76 20 98 % - 02/12/19 0745 125/64 - - 71 20 97 % - 02/12/19 0730 129/68 - - 59 20 99 % - 02/12/19 0715 117/65 - - 64 20 96 % - 02/12/19 0700 121/67 - - 65 20 97 % - 02/12/19 0655 104/65 - - 67 20 99 % - 02/12/19 0654 104/65 98.9 F (37.2 C) - 67 20 98 % - 02/12/19 0421 98/58 98.3 F (36.8 C) Oral 88 14 97 % 81.8 kg (180 lb 6.4 oz) 02/12/19 0029 93/55 98.9 F (37.2 C) Oral 84 16 100 % - 02/11/19 2018 114/66 99.1 F (37.3 C) Oral 81 16 100 % - Intake/Output Summary (Last 24 hours) at 02/12/19 1629 Last data filed at 02/12/19 1551 Gross per 24 hour Intake 1768 ml Output 3000 ml Net -1232 ml Physical Exam: Constitutional: . PLEASANT FEMALE IN BED NO DISTRESS IN BED, SMILING HEENT: Neck supple, no JVD, non icteric sclera. Cardiovascular: Normal rate, regular rhythm, normal heart sounds with S1 and S2, Pulmonary/Chest: Effort normal and breath sounds normal. r. No respiratory distress. no w heezes. no rales. exhibits no tenderness. Abdominal: Soft. Bowel sounds are normal. exhibits no distension and no palpable mass. Th ere is NO TENDER TODAY There is no rebound and no guarding. Extremeties/Musculoskeletal: Normal range of motion.exhibits no tenderness. exhibits no ed maico. Neurological: Alert and oriented to person, place, and time. Perrla NON FOCAL Skin: Skin is warm and dry. PALE DATA Recent Labs Lab 02/12/19 0549 02/11/19 0608 02/10/19 1019 WBC 11.02* 11.67* 12.41* RBC 3.29* 3.15* 3.43* HGB 9.9* 9.5* 10.2* HCT 30.4* 29.1* 31.8* MCV 92.4 92.3 92.6 MCH 30.2 30.1 29.6 MCHC 32.7 32.6 32.0 RDW 52.5 51.6 53.4* PLT 308 280 273 MPV 8.8 8.8 8.2 DIFFTYPE AUTOMATED MANUAL AUTOMATED Recent Labs Lab 02/12/19 0549 02/11/19 0608 02/10/19 0517 NA 141 140 139 K 4.2 4.0 4.2 CL 104 102 103 CO2 27 29 24 BUN 23 15 21 CREATININE 8.9* 6.5* 9.9* GLUF 81 97 62* No results for input(s): CKTOTAL, TROPONINI, TROPONINT, CKMBINDEX in the last 168 hours. No results for input(s): PHOS in the last 168 hours. No results for input(s): MG in the last 168 hours. Invalid input(s): ABG No results for input(s): CALCIUM in the last 168 hours. No results for input(s): APTT, INR, PTT in the last 168 hours. Us Abdomen Limited Result Date: 02/01/2019 1. Gallbladder and common bile duct are normal. 2. No acute abnormality of the liver. 3. No hydronephrosis of the right kidney. Signed by: Omar Cervantes Sign Date/Time: 02/01/2019 4:36 PM Us Upper Extremity Dialysis Mapping Bilateral Result Date: 2019 1. No evidence of superficial or deep venous thrombosis in the upper extremity veins. 2. Tr iphasic waveform noted in all arteries. 3. Bilateral upper extremity vein mapping measuremen ts as above. Signed by: DO Plascencia Edward Sign Date/Time: 2019 11:54 AM Us Shuttlecock Feather Trimmer Pelvis Transabd/endovaginal Result Date: 02/01/2019 1. Moderate free fluid in the pelvis likely related to known peritoneal dialysis catheter. Correlate clinically. 2. Hyperechoic enlarged right ovary with hyperemia and complex cystic structures. This is abnormal, and similar in size compared with 12/24/2018. This raises co ncern for ovarian mass. Enhanced MRI may help in further evaluation. 3. Complex cyst in the left ovary. Signed by: Cedric Smalls Sign Date/Time: 02/01/2019 11:09 AM PROBLEM LIST Principal Problem: SIRS (systemic inflammatory response syndrome) (HCC) Active Problems: Gastroenteritis End-stage renal disease (HCC) Prolonged Q-T interval on ECG Cyst of right ovary Peritoneal dialysis catheter infection (HCC) ASSESSMENT / PLAN PD peritonitis PD fluid culture and blood cultures remain with no growth. Removal of PD catheter 02/04/19 New HD cath inserted on 01/26/10 persistent elevation of wbc ^ and abdominal pain abx changed to merrem, vanco from fortaz Plan to c/w Merrem till 02/23/19 And vanco iv with HD till 02/14. Not sure if Will need either central tunneled cath or peripheral line for outpt iv abx. Unable to given merrem with HD. So will need to come outpt facility? trying to figure out how to arrange this. D/w rn case mgr, ID, renal. ESRD On HD per night shift manager noted. HD setup MWF at [place]. S/p tunneled catheter placement 02/05/19 HTN BP low now. Asymptomatic. Monitor Anemia of ESRD Defer to nephrology regarding EPO Prolonged QTc Correct hypokalemia Check Mg DVT prophylaxis with heparin The plan has explained in detail to the patient , all questions were answered.All data was reviewed. I explained radiology and lab findings and plan of care to patient and relatives and they v erbalized understanding and agreement and had no more questions for me after my interaction with them. More than 35 minutes spent directly face to face with patient and more than 65% s pent for physical examination and talking with patient and relatives at bedside, on chart review, coordinating care with other providers, formulating a plan of care and management as well as Computerized Physician [employer]. Disposition: Home ? Facility? Code Status: Full Code Esteban العلي MD 02/12/2019 4:29 PM onversion Transactawa n, Provider Unknown - 02/12/2019 10:24 AM PDT Progress Notes by Stepan Carey RPH at 02/12/19 1024 Author: Stepan Carey RPH Service: Pharmacy Author Type: Pharmacist Filed: 02/12/19 1024 Date of Service: 02/12/19 1024 Status: Signed Power Wood Sawyer: Stepan Carey RPH (Pharmacist) Vancomycin Monitoring Subjective Pharmacy to dose vancomycin per protocol. Diagnosis: Abdominal infection. Vancomycin Day: 4 Objective Lab Results Component Value Date/Time CREATININE 8.9 (H) 02/12/2019 05:49 AM WBC 11.02 (H) 02/12/2019 05:49 AM Wt= 81.8 kg, CrCl= HD patient, Tmax afeb Cultures= MRSA Nare - neg; Bloodx2 [id number]; Body fluid/peritoneal fluid - NGTD. Other A bx= Meropenem. Current Vancomycin Dose = HD protocol Assessment Trough goal: 15- 20 ug/mL Plan Continue vancomycin HD protocol. No levels indicated at this time. Pharmacist: Stepan Carey Alonzo Cool MD - 02/12/2019 10:07 AM PDTFormatting of this note might be differe nt from the original. Progress Notes by Alonzo Correa MD at 02/12/19 1007 Author: Alonzo Correa MD Service: Infectious Disease Author Type: Physic uma Filed: 02/14/19 1730 Date of Service: 02/12/19 1007 Status: Signed Power Wood Sawyer: Alonzo Correa MD (Physician) [facility]: Infectious Diseases Progress Note Hospital Day: LOS: 11 days Post-Op Day: 8 Days Post-Op CC: Follow up on peritonitis SUBJECTIVE/OVERNIGHT EVENTS Stable, WBC trending down. Afebrile. REVIEW OF SYSTEMS GI: denies diarrhea, Constitutional: denies fever and chills and Integumentary: denies skin rash MEDICATIONS: heparin (porcine) 3,200 Units Intracatheter Once in dialysis heparin (porcine) 5000 unit/0.5mL 5,000 Units Subcutaneous 2 times per day meropenem 500 mg Intravenous Q24H pantoprazole 40 mg Oral QAM AC sevelamer 800 mg Oral TID WC sodium chloride (PF) 10 mL Intravenous Q8H traZODone 100 mg Oral Nightly vancomycin 1,000 mg Intravenous See Admin Instructions dextrose PRN Medications acetaminophen OR acetaminophen, dextrose, dextrose, dextrose, fentaNYL OR fentaNYL, glucagon, glucagon, HYDROcodone-acetaminophen OR HYDROcodone-acetaminophen, LORazepam, polyethylene glycol, potassium chloride OR potassium chloride OR potassium chloride, promethazine PHYSICAL EXAM Vital Signs: BP 116/69 | Pulse 71 | Temp 98.9 F (37.2 C) | Resp 20 | Ht 1.575 m (5' 2") | Wt 81 .8 kg (180 lb 6.4 oz) | SpO2 100% | ? No | BMI 33.00 kg/m Temp (24hrs), Av.4 F (36.9 C), Min:98 F (36.7 C), Max:98.8 F (37.1 C) Focused exam shows: General exam: No distress, cooperative with exam. HEENT: sclera non-icteric, no visible oral thrush Cardiovascular: regular rate and rhythm Lungs: no tachypnea, clear breath sounds. Mildly decreased at bases Abdomen: no distension, bowel sounds present, much improved pain to palpation lower abdomen . Extremities/MSK: No edema, no joint effusions Skin: No lesions, normal turgor Neurologic: Awake, cranial nerves intact. Follows commands. Lines unchanged LABS: All labs reviewed. MICROBIOLOGY Results Procedure Component Value Units Date/Time Fluid culture w/gram stain [[id number]] Collected: 02/01/19 0751 Specimen: Body Fluid from Peritoneal Fluid Updated: 02/11/19 0638 Specimen Description PERITONEAL FLUID SPECIAL REQUESTS HOLD 10 DAYS GRAM STAIN 1+ GRAM STAIN WBC'S SEEN GRAM STAIN NO ORGANISMS SEEN CULTURE NO GROWTH 10 DAYS IMAGING Reviewed images of : No new images for review ASSESSMENT & PLAN The patient is a 39 y.o.-year-old female with the following problems: Principal Problem: SIRS (systemic inflammatory response syndrome) (HCC) Active Problems: Gastroenteritis End-stage renal disease (HCC) Prolonged Q-T interval on ECG Cyst of right ovary Peritoneal dialysis catheter infection (HCC) 1. Recurrent peritoneal dialysis - associated peritonitis Culture negative. Status post PD catheter removal on February 04, 2019 with improvement in her clinical conditio n, initially high leukocytosis, and unfortunately with persistent abdominal pain and persist ent to low-level leukocytosis. Has been on vancomycin and ceftazidime since January 31, 2019. Changed to Meropenem 02/09/19 and WBC is now trending down. Will have to commit to 2 weeks of IV Meropenem until 02/23/19. Vancomycin only until 02/14/19. 2. Leukocytosis sec to #1. Trending down. Repeat CBC in the am. 3. ESRD Will have to complete OPAT with her PCP in [place]. 4. Mild elevation of procalcitonin, expected in ESRD. 5. Continue to work with case management for discharge planning. Discussed with Dr. العلي and case management regarding OPAT. Orders entered. Dr. Marroquin will take over ID service tomorrow. Please call if questions. Alonzo Up MD, MPH Infectious Diseases 02/12/2019 onvers ion Transaction, Provider Unknown - 02/12/2019 9:16 AM PDT Case Management by Lilo Iqbal RN at 02/12/19915 Author: Lilo Iqbal RN Service: (none) Author Type: Registered Nurse Filed: 02/15/19 1055 Date of Service: 02/12/19915 Status: Addendum Power Wood Sawyer: Lilo Iqbal RN (Registered Nurse) Related Notes: Original Note by Lilo Iqbal RN (Registered Nurse) filed a t 02/12/19 2812 CM notified Kimber Vieira that pt will not be making her dialysis appt today. KARTHIK faxed abx script and chart notes to Mercedez at [facility]. Mercedez states that the ir RN will be contacting CM on instructions to set up outpt abx infusions. 11:00 KARTHIK received a call from [facility] MICHELLE Curran. Bina states they do not have an MD [facility] privileges and their pt's that are discharged with abx usually do in home infusio ns. KARTHIK spoke to pt again today about the possibility of doing in home abx. Pt states she wou ld rather drive to [facility] every day instead of doing abx at home. 11:10 CM contacted OPP through [facility] that states they will be able to accept pt for ab x therapy once insurance approves. KARTHIK faxed script and ID notes to [facility] #[phone]. Pt's abx is scheduled for a PM dose. [facility] states the latest they can administer the abx is 5:00 pm. Pt's dialysis chair time is at 11:30 am in [place]. 12:20 Pt decided she would be better off doing abx at home [place] of [place] dialysis and abx appts. KARTHIK placed referral and faxed script and paperwork to Kass[facility]. Doreen states that [facility] PCP may not be able to sign Home Health orders in order to set up Home Health with outpt abx therapy. Tefna states that home health orders wi ll have to be faxed to BALJIT Nagy and Dr. Harrington #[phone] to be approved, a nd may take up to next Friday or Friday to be completed. CM will follow up on Friday for discharge planning. Linden Kincaid MD - 02/12/2019 8:45 AM PDTFormatting of this note might be different from the orig inal. Progress Notes by Linden Alonzo MD at 02/12/19844 Author: Linden Alonzo MD Service: Nephrology Author Type: Physician Filed: 02/12/191918 Date of Service: 02/12/19844 Status: Signed Power Wood Sawyer: Linden Alonzo MD (Physician) [facility]: NEPHROLOGY Dialysis/ Progress Note Ramona Oconnor 39 y.o. [id number] female [facility] Hospital Day: LOS: 11 days Patient with PMH as listed below admitted with nausea vomiting, abdominal pain and recurren t PD associated peritonitis, after discussion with the family PD catheter removed and patien t switched to hemodialysis Nephrology consulted for evaluation and management of ESRD CHRONIC SEVERE ASSOCIATED WITH FLUID ELECTROLYTE IMBALANCES Assess need for hd/uf PD catheter removed 02/04/19, Got HD catheter placed 02/05/19 SUBJECTIVE Seen and examined on hd with hd rn Henna tolerating hd/ uf well Access functioning well HD FLOW SHEET REVIEWED feels ok DENIES CHEST PAIN, SOB, VOMITING, DIARRHEA, FEVER, [...] 10/25/15 showed normal sized kidneys. 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 GERD (gastroesophageal reflux disease) Hypercalcemia 09/07/2017 Hyperphosphatemia 10/28/2015 Hypocalcemia 10/28/2015 Hypokalemia 06/04/2017 Itching 10/28/2015 Metabolic acidosis 10/28/2015 Obesity Peritonitis associated with peritoneal dialysis (HCC) 01/24/2017 Peritonitis due to infected peritoneal dialysis catheter (HCC) 12/08/2018 Secondary hyperparathyroidism (HCC) Uremia 10/28/2015 Past Surgical History Procedure Laterality Date CATHETER REMOVAL N/A 02/04/2019 Procedure: DIALYSIS CATHETER - REMOVAL; Surgeon: Qasim Pederson MD; Location: [facility] MAIN OR ; Service: Vascular; Laterality: N/A; Infected PD catheter removal ESOPHAGOGASTRODUODENOSCOPY N/A 09/10/2017 Procedure: ESOPHAGOGASTRODUODENOSCOPY; Surgeon: Beena Peters MD; Location: [facility] ENDOSCOP Y; Service: Gastroenterology; Laterality: N/A; PERITONEAL CATHETER INSERTION N/A 10/28/2015 Procedure: LAPAROSCOPIC - PERITONEAL DIALYSIS CATH INSERTION; Surgeon: Mundo Ramos MD; Lo cation: [facility] MAIN OR; Service: Vascular; Laterality: [...] is a former smoker. Scheduled Medications heparin (porcine) 5000 unit/0.5mL 5,000 Units Subcutaneous 2 times per day meropenem 500 mg Intravenous Q24H pantoprazole 40 mg Oral QAM AC sevelamer 800 mg Oral TID WC sodium chloride (PF) 10 mL Intravenous Q8H traZODone 100 mg Oral Nightly vancomycin 1,000 mg Intravenous See Admin Instructions Continuous Infusions dextrose PRN Medications acetaminophen OR acetaminophen, dextrose, dextrose, dextrose, fentaNYL OR fentaNYL, glucagon, glucagon, HYDROcodone-acetaminophen OR HYDROcodone-acetaminophen, LORazepam, polyethylene glycol, potassium chloride OR potassium chloride OR potassium chloride, promethazine Allergy: No Known Allergies OBJECTIVE Vital Signs: BP 115/68 | Pulse 81 | Temp 98 F (36.7 C) | Resp 20 | Ht 1.575 m (5' 2") | Wt 80 k g (176 lb 5.9 oz) | SpO2 100% | ? No | BMI 32.26 kg/m I&O Detailed Table: I/O last 3 completed shifts: In: 650 [P.O.:650] Out: - Weight change: -12.971 kg (-28 lb 9.5 oz) Examination: Seen on hemodialysis with hemodialysis nurse henna APPEARANCE: The patient is lying in the bed comfortably, answering appropriately VITALS: Reviewed as listed. EYES: +ve pale conjunctiva LUNGS: Clear to auscultation bilaterally. HEART: S1, S2, no pericardial rub noted. ABDOMEN: Full, soft, NT EXTREMITIES: no pedal edema noted. NEUROLOGIC: No gross focal motor deficit noted, no Asterixis. PSYCH: The patient is alert and oriented x 3, mood and affect looks ok R IJ HD CATHETER functioning well LABS: Recent Results (from the past 24 hour(s)) Basic metabolic panel Collection Time: 02/12/19 5:49 AM Result Value Ref Range SODIUM 141 135 - 145 mmol/L POTASSIUM 4.2 3.5 - 4.9 mmol/L CHLORIDE 104 99 - 109 mmol/L CO2 27 23 - 32 mmol/L ANION GAP AGAP 14 5 - 20 mmol/L GLUCOSE 81 65 - 99 mg/dL BUN 23 8 - 25 mg/dL CREATININE 8.9 (H) 0.50 - 1.00 mg/dL BUN/CREAT 3 CALCIUM 8.6 8.5 - 10.5 mg/dL EGFR 5 (L) >60 mL/min/1.73m2 CBC W/Auto Diff (Reflex to Manual) Collection Time: 02/12/19 5:49 AM Result Value Ref Range WBC 11.02 (H) 3.80 - 11.00 K/uL RBC 3.29 (L) 3.70 - 5.10 M/uL HGB 9.9 (L) 11.3 - 15.5 g/dL HCT 30.4 (L) 34.0 - 46.0 % MCV 92.4 80.0 - 100.0 fl MCH 30.2 27.0 - 34.0 pg MCHC 32.7 32.0 - 35.5 g/dL RDW SD 52.5 37 - 53 fl PLT 308 150 - 400 K/uL MPV 8.8 fl DIFF TYPE AUTOMATED NEUTROPHILS 73.10 % LYMPHOCYTES 15.42 % MONOCYTES 7.33 % EOSINOPHILS 3.58 % BASOPHILS 0.57 % NEUTROPHILS ABS 8.05 (H) 1.90 - 7.40 K/uL LYMPHOCYTES ABS 1.70 1.00 - 3.90 K/uL MONOCYTES ABS 0.81 (H) 0.00 - 0.80 K/uL EOSINOPHILS ABS 0.39 0.00 - 0.50 K/uL BASOPHILS ABS 0.06 0.00 - 0.10 K/uL Imaging No results found. PROBLEM LIST Principal Problem: SIRS (systemic inflammatory response syndrome) (HCC) Active Problems: Gastroenteritis End-stage renal disease (HCC) Prolonged Q-T interval on ECG Cyst of right ovary Peritoneal dialysis catheter infection (HCC) ASSESSMENT & PLAN ESRD ON HD Seen and examined on hd tolerating hd/ uf well Access functioning well HD FLOW SHEET REVIEWED Assess daily for need for hd & uf PD catheter removed 02/04/19, Got HD catheter placed 02/05/19 Fluid restriction 1.2 litres/24 hours Strict I & O Daily RFP Renal diet Daily weights will help with subsequent hd with uf Dose all meds per protocol for ESRD on hd ANEMIA in ESRD stable EPOGEN TO KEEP HGB 10-11 Lab Results Component Value Date HGB 9.9 (L) 02/12/2019 HGB 9.5 (L) 02/11/2019 HGB 10.2 (L) 02/10/2019 FERRITIN 56 10/27/2015 LABIRON 12 (L) 10/27/2015 HYPERTENSION Controlled WATCH BP CLOSELY DURING HOSPITALIZATION LOW NA DIET Will adjust BP meds according to BP readings BP Readings from Last 3 Encounters: 02/12/19 115/68 01/09/19 105/55 12/27/18 104/63 HYPERPHOSPHATEMIA Worsened LOW P DIET PO4 BINDERS, incresae Renvela 2 tab with meals Lab Results Component Value Date PHOS 6.0 (H) 02/04/2019 PHOS 5.6 (H) 02/03/2019 PHOS 5.4 (H) 02/01/2019 HYPOALBUMINEMIA INCREASE PROTEIN INTAKE Lab Results Component Value Date ALB 2.9 (L) 02/04/2019 ALB 1.8 (L) 02/03/2019 ALB 2.0 (L) 02/02/2019 CASE DISCUSSED IN DETAIL WITH PATIENT/ care team, ANSWERS ALL QUESTIONS IN DETAIL, VERBALIZ ES UNDERSTANDING LINDEN ALONZO MD 02/12/2019 JUAN F QUAEMPTS Seen earlier and charting completed later Dictation software, bLife, used which may contain error for similar sounding words even af ter review. Personal communication requested for any clarification. Portions of my notes may have been carried over for continuity of care. onversion Transaction, Provider Unknown - 02/12/2019 5:12 AM PDTFormatting of this note might be different from t he original. Nurse Progress Note by Shelli Mukherjee RN at 02/12/19511 Author: Shelli Mukherjee RN Service: (none) Author Type: Registered Nurse Filed: 02/12/19514 Date of Service: 02/12/19511 Status: Signed Power Wood Sawyer: Shelli Mukherjee RN (Registered Nurse) A/Ox4, VSS, No c/o pain. Pt resting comfortably throughout night. Abdominal dressing caal ged d/t drainage and dressing not intact. Dialysis to start early this morning. End of quinn ft and 24 hour chart review complete. Shelli Mukherjee RN 5:15 AM Esteban Yoder MD - 02/11/2019 6:46 PM PDTFormatting of this note might be different from the or iginal. Progress Notes by Esteban العلي MD at 02/11/191845 Author: Esteban العلي MD Service: Internal Medicine Author Type: Physician Filed: 02/11/191849 Date of Service: 02/11/191845 Status: Signed Power Wood Sawyer: Esteban العلي MD (Physician) [facility]: Hospitalist Progress Note Hospital Day: LOS: 10 days SUBJECTIVE No pain today in belly No nausea Took shower, feels good Patient Summary: Ms. Oconnor is a 38 yr old man with lady with HTN, GERD with esophagitis, hx of diverticuli tis and ESRD on CAPD, with recurrent culture negative bacterial peritonitis x3 presented to the ED on 02/01/19 at [facility] for abdominal pain, nausea, vomiting and diarrhea, transferred to [facility] for further management. She was afebrile but hypotensive on presentation. Her labs showed leukocytosis with bandemia. PD fluid analysis however showed w bc of 622 with 48% segs. She had elevated procalcitonin. ID has been consulted and currently on IP antibiotic. Removal of PD catheter was discussed with the patient. She was initially upset but later on agreed. Patient was referred to vascular surgery and had her PD cath rem dom on 02/04/19. She had a tunneled catheter placed on 02/05/19. Patient has been accepted to continue HD at [facility] on a MWF schedule. Was on fortaz but continues on fevers, wbc ^. Changed to vanco, merrem. Abdominal better, no fevers, and wbc improved. Plan for iv merrem Scheduled Medications famotidine 20 mg Oral Daily Or famotidine 20 mg Intravenous Daily heparin (porcine) 5000 unit/0.5mL 5,000 Units Subcutaneous 2 times per day meropenem 500 mg Intravenous Q24H pantoprazole 40 mg Oral QAM AC sevelamer 800 mg Oral TID WC sodium chloride (PF) 10 mL Intravenous Q8H traZODone 100 mg Oral Nightly vancomycin 1,000 mg Intravenous See Admin Instructions Continuous Infusions dextrose PRN Medications acetaminophen OR acetaminophen, dextrose, dextrose, dextrose, fentaNYL OR fentaNYL, glucagon, glucagon, HYDROcodone-acetaminophen OR HYDROcodone-acetaminophen, LORazepam, polyethylene glycol, potassium chloride OR potassium chloride OR potassium chloride, promethazine OBJECTIVE Vital Signs: BP 113/62 (BP Location: Right upper arm) | Pulse 83 | Temp 98.6 F (37 C) (Oral) | Re sp 18 | Ht 1.575 m (5' 2") | Wt 83.6 kg (184 lb 3.2 oz) | SpO2 100% | ? No | BMI 33.69 kg/m Patient Vitals for the past 24 hrs: BP Temp Temp src Pulse Resp SpO2 Weight 02/11/19 1545 113/62 98.6 F (37 C) Oral 83 18 100 % - 02/11/19 1213 108/59 98.2 F (36.8 C) Oral 79 20 100 % - 02/11/19 0815 (!) 89/53 - - - - - - 02/11/19 0803 (!) 88/51 - - - - - - 02/11/19 0754 (!) 85/52 99 F (37.2 C) Oral 74 18 97 % - 02/11/19 0511 - - - - - - 83.6 kg (184 lb 3.2 oz) 02/11/19 0357 95/55 99.2 F (37.3 C) Oral 74 18 96 % - 02/10/19 2306 117/55 99.2 F (37.3 C) Oral 86 19 98 % - 02/10/19 1945 119/69 99.1 F (37.3 C) Oral 79 18 99 % - Intake/Output Summary (Last 24 hours) at 02/11/19 1846 Last data filed at 02/11/19 1802 Gross per 24 hour Intake 400 ml Output 0 ml Net 400 ml Physical Exam: Constitutional: . PLEASANT FEMALE IN BED NO DISTRESS IN BED, SMILING JUST TOOK SHOWER. HEENT: Neck supple, no JVD, non icteric sclera. Cardiovascular: Normal rate, regular rhythm, normal heart sounds with S1 and S2, Pulmonary/Chest: Effort normal and breath sounds normal. r. No respiratory distress. no w heezes. no rales. exhibits no tenderness. Abdominal: Soft. Bowel sounds are normal. exhibits mild distension and no palpable mass. T here is NO TENDER TODAY There is no rebound and no guarding. Extremeties/Musculoskeletal: Normal range of motion.exhibits no tenderness. exhibits no ed maico. Neurological: Alert and oriented to person, place, and time. Perrla NON FOCAL Skin: Skin is warm and dry. PALE DATA Recent Labs Lab 02/11/19 0608 02/10/19 1019 02/10/19 0517 WBC 11.67* 12.41* 12.04* RBC 3.15* 3.43* 3.41* HGB 9.5* 10.2* 10.2* HCT 29.1* 31.8* 31.7* MCV 92.3 92.6 93.0 MCH 30.1 29.6 30.0 MCHC 32.6 32.0 32.2 RDW 51.6 53.4* 51.6 PLT 280 273 261 MPV 8.8 8.2 8.7 DIFFTYPE MANUAL AUTOMATED AUTOMATED Recent Labs Lab 02/11/19 0608 02/10/19 0517 02/09/19 0507 NA 140 139 139 K 4.0 4.2 4.2 CL 102 103 102 CO2 29 24 28 BUN 15 21 13 CREATININE 6.5* 9.9* 7.1* GLUF 97 62* 66 No results for input(s): CKTOTAL, TROPONINI, TROPONINT, CKMBINDEX in the last 168 hours. No results for input(s): PHOS in the last 168 hours. No results for input(s): MG in the last 168 hours. Invalid input(s): ABG No results for input(s): CALCIUM in the last 168 hours. No results for input(s): APTT, INR, PTT in the last 168 hours. Us Abdomen Limited Result Date: 02/01/2019 1. Gallbladder and common bile duct are normal. 2. No acute abnormality of the liver. 3. No hydronephrosis of the right kidney. Signed by: Omar Cervantes Sign Date/Time: 02/01/2019 4:36 PM Us Upper Extremity Dialysis Mapping Bilateral Result Date: 2019 1. No evidence of superficial or deep venous thrombosis in the upper extremity veins. 2. Tr iphasic waveform noted in all arteries. 3. Bilateral upper extremity vein mapping measuremen ts as above. Signed by: DO Plascencia Edward Sign Date/Time: 2019 11:54 AM Us Shuttlecock Feather Trimmer Pelvis Transabd/endovaginal Result Date: 02/01/2019 1. Moderate free fluid in the pelvis likely related to known peritoneal dialysis catheter. Correlate clinically. 2. Hyperechoic enlarged right ovary with hyperemia and complex cystic structures. This is abnormal, and similar in size compared with 12/24/2018. This raises co ncern for ovarian mass. Enhanced MRI may help in further evaluation. 3. Complex cyst in the left ovary. Signed by: Cedric Smalls Sign Date/Time: 02/01/2019 11:09 AM PROBLEM LIST Principal Problem: SIRS (systemic inflammatory response syndrome) (HCC) Active Problems: Gastroenteritis End-stage renal disease (HCC) Prolonged Q-T interval on ECG Cyst of right ovary ASSESSMENT / PLAN PD peritonitis PD fluid culture and blood cultures remain with no growth. Removal of PD catheter 02/04/19 persistent elevation of wbc ^ and abdominal pain abx changed to merrem, vanco from [facility] Plan to c/w Merrem. Will need either central tunneled cath or peripheral line for outpt iv abx. Unable to given merrem with HD. So will need to come outpt facility? D/w rn case mgr, ID, renal. Patient prefers peripheral line ESRD On HD per night shift manager noted. HD setup MWF at [place]. S/p tunneled catheter placement 02/05/19 HTN BP low now. Asymptomatic. montir Anemia of ESRD Defer to nephrology regarding EPO Prolonged QTc Correct hypokalemia Check Mg DVT prophylaxis with heparin The plan has explained in detail to the patient , all questions were answered.All data was reviewed. I explained radiology and lab findings and plan of care to patient and relatives and they v erbalized understanding and agreement and had no more questions for me after my interaction with them. More than 35 minutes spent directly face to face with patient and more than 65% s pent for physical examination and talking with patient and relatives at bedside, on chart review, coordinating care with other providers, formulating a plan of care and management as well as Computerized Physician [employer]. Disposition: Home ? Facility? Code Status: Full Code Esteban العلي MD 02/11/2019 6:46 PM onversion Transactio n, Provider Unknown - 02/11/2019 2:45 PM PDT Progress Notes by Isaiah Grimaldo RD at 02/11/19 1442 Author: Isaiah Grimaldo RD Service: (none) Author Type: Registered Dietitian Filed: 02/11/19 1441 Date of Service: 02/11/19 1445 Status: Signed Power Wood Sawyer: Isaiah Grimaldo RD (Registered Dietitian) 02/11/19 1434 Subjective Timepoint Follow up Pt c/o H risk follow up. Pt resting in bed, reports poor appetite, nothing sounds good. Reported by Patient Diet Experience Self-selected diet(s) followed Pt reports low appetite at baseline, states she eats a coupl e of snacks a day and one meal which is typically dinner. Fluid / Beverage Intake Oral Fluids Amount Sips ad kimberly. Pt reports the only thing she has consumed today is a few o unces of komal delight. Liquid Meal Replacement or Supplement Pt states she does not like the [place] [facility] as is not drinking it. Pt is open to try Boost Breeze supplements which contain (80 mg NA, 0 mg K+, 150 mg phos per carton). Food Intake Amount of Food Pt intake is inadequate. Per charting 0% of meals noted over the past 3 days . On 02/07 D was from outside. 02/06 had 100% fruit cup, 02/04 0% B. Type of Food / Meals Renal diet. Anthropometrics Weight change Wt is up 2.3 kg since admit. Per I/O's is + 0.876 L of fluid. No edema noted. Will continue to monitor wt trend. Biochemical data, medical tests, and procedures reviewed Biochemical data, medical tests, and procedures reviewed Cr 6.5 H. Recommendations Recommended energy needs Continue renal diet as ordered. Encourage high protein nutrient de nse foods. Send Boost Breeze BID, more as desired. Consider appetite stimulant if intake rem ains inadequate. Nutritional Risk Nutritional risk High Follow up date 02/14/[address], CD onver patric Transaction, Provider Unknown - 02/11/2019 12:00 PM PDT Case Management by Lilo Iqbal RN at 02/11/19 1200 Author: Lilo Iqbal RN Service: (none) Author Type: Registered Nurse Filed: 02/15/19 1056 Date of Service: 02/11/19 1200 Status: Addendum Power Wood Sawyer: Lilo Iqbal RN (Registered Nurse) Related Notes: Original Note by Lilo Iqbal RN (Registered Nurse) filed a t 02/12/19 1047 Per ID MD pt will be needing abx infusions outpt, once discharged. CM discussed IV abx opti ons with pt, home infusion vs OPP at [facility]. Pt is not wanting to do in home antibioti cs and prefers to go into the hospital to complete abx's. CM will fax abx script once availa ble to pt's PCP as our ID MD does not have privileges in [place]. Linden Kincaid MD - 02/11/2019 11:39 AM PDTFormatting of this note might be different from the orig inal. Progress Notes by Linden Alonzo MD at 02/11/19 9164 Author: Linden Alonzo MD Service: Nephrology Author Type: Physician Filed: 02/18/19 5783 Date of Service: 02/11/19 6815 Status: Signed Power Wood Sawyer: Linden Alonzo MD (Physician) [facility]: NEPHROLOGY Progress Note Ramona Oconnor 39 y.o. 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 GERD (gastroesophageal reflux disease) Hypercalcemia 09/07/2017 Hyperphosphatemia 10/28/2015 Hypocalcemia 10/28/2015 Hypokalemia 06/04/2017 Itching 10/28/2015 Metabolic acidosis 10/28/2015 Obesity Peritonitis associated with peritoneal dialysis (HCC) 01/24/2017 Peritonitis due to infected peritoneal dialysis catheter (HCC) 12/08/2018 Secondary hyperparathyroidism (HCC) Uremia 10/28/2015 Past Surgical History Procedure Laterality Date CATHETER REMOVAL N/A 02/04/2019 Procedure: DIALYSIS CATHETER - REMOVAL; Surgeon: Qasim Pederson MD; Location: [facility] MAIN OR ; Service: Vascular; Laterality: N/A; Infected PD catheter removal ESOPHAGOGASTRODUODENOSCOPY N/A 09/10/2017 Procedure: ESOPHAGOGASTRODUODENOSCOPY; Surgeon: Beena Peters MD; Location: [facility] ENDOSCOP Y; Service: Gastroenterology; Laterality: N/A; PERITONEAL CATHETER INSERTION N/A 10/28/2015 Procedure: LAPAROSCOPIC - PERITONEAL DIALYSIS CATH INSERTION; Surgeon: Mundo Ramos MD; Lo cation: [facility] MAIN OR; Service: Vascular; Laterality: [...] and is a former smoker. Scheduled Medications famotidine 20 mg Oral Daily Or famotidine 20 mg Intravenous Daily heparin (porcine) 5000 unit/0.5mL 5,000 Units Subcutaneous 2 times per day meropenem 500 mg Intravenous Q24H pantoprazole 40 mg Oral QAM AC sevelamer 800 mg Oral TID WC sodium chloride (PF) 10 mL Intravenous Q8H traZODone 100 mg Oral Nightly vancomycin 1,000 mg Intravenous See Admin Instructions Continuous Infusions dextrose PRN Medications acetaminophen OR acetaminophen, dextrose, dextrose, dextrose, fentaNYL OR fentaNYL, glucagon, glucagon, HYDROcodone-acetaminophen OR HYDROcodone-acetaminophen, LORazepam, polyethylene glycol, potassium chloride OR potassium chloride OR potassium chloride, promethazine Allergy: No Known Allergies OBJECTIVE Vital Signs: BP (!) 89/53 (BP Location: Right upper arm) | Pulse 74 | Temp 99 F (37.2 C) (Oral) | Resp 18 | Ht 1.575 m (5' 2") | Wt 83.6 kg (184 lb 3.2 oz) | SpO2 97% | ? N o | BMI 33.69 kg/m I&O Detailed Table: I/O last 3 completed shifts: In: 2655 [P.O.:650; I.V.:355; Other:1650] Out: 3450 [Other:3450] Weight change: 11.1 kg (24 lb 7.9 oz) Examination: APPEARANCE: The patient is lying in the bed in no distress, awake and alert VITALS: Reviewed as listed. EYES: +ve pale conjunctiva LUNGS: Clear to auscultation bilaterally. HEART: S1, S2, no pericardial rub noted. ABDOMEN: Full, soft, no tenderness. EXTREMITIES: no pedal edema noted. NEUROLOGIC: No gross focal motor deficit noted, no Asterixis. PSYCH: The patient is alert and oriented x 3, mood and affect looks depressed R IJ HD CATHETER in place LABS: Recent Results (from the past 24 hour(s)) Basic metabolic panel Collection Time: 02/11/19 6:08 AM Result Value Ref Range SODIUM 140 135 - 145 mmol/L POTASSIUM 4.0 3.5 - 4.9 mmol/L CHLORIDE 102 99 - 109 mmol/L CO2 29 23 - 32 mmol/L ANION GAP AGAP 13 5 - 20 mmol/L GLUCOSE 97 65 - 99 mg/dL BUN 15 8 - 25 mg/dL CREATININE 6.5 (H) 0.50 - 1.00 mg/dL BUN/CREAT 2 CALCIUM 8.0 (L) 8.5 - 10.5 mg/dL EGFR 7 (L) >60 mL/min/1.73m2 Imaging Ir Dialysis Tunneled Cath Insert Result Date: 2019 DATE OF PROCEDURE: 2019 SURGEON: Qasim Pederson MD PREOPERATIVE DIAGNOSIS: 1. End stage renal disease requiring hemodialysis POSTOPERATIVE DIAGNOSIS: Same PROCEDURES: 1.Percutaneou s access of right internal jugular vein under ultrasound guidance and placement of tunneled hemodialysis catheter SEDATION:?Moderate conscious sedation was administered during the proc edure by the physician and nursing staff with continuous hemodynamic monitoring throughout t he procedure.?Total Sedation: Versed: 2mg; Fentanyl: 100mcg; Total Sedation Time: 22minutes ANTIBIOTIC PROPHYLAXIS: none FLUOROSCOPY TIME: 0.1min, Dose 1mGy EBL: Minimal COMPLICATIONS: None INDICATIONS: This is a 39 y.o. female patient with end stage renal disease requiring hemodialysis.The patient has been evaluated by his auto overhauler who determined that he is a suitable candidate to undergo hemodialysis. The patient has received appropriate training re garding hemodialysis. The patient understands the benefit and purpose of the planned procedu re of tunneled hemodialysis catheter insertion is to allow the patient to receive hemodialys is while waiting for a rat exterminator hemodialysis access such as arteriovenous venous fistula or graft to be created. The patient also understands the risks and complications of this proce dure which include bleeding, vessel perforation, vessel dissection, nerve and arterial injur y, and pneumothorax. The patient has accepted these benefits and risks and agreed to undergo the planned procedure. PROCEDURE IN DETAIL: The patient was taken to the operating room and placed on the table in the supine position. The patient's right neck and chest region was p repped sterilely and then draped in a standard fashion. The patient was given local and cons cious sedation anesthesia. Appropriate time out was performed whereby the patient and site o f surgery were identified. Percutaneous access of the right internal jugular vein was obtain ed under ultrasound guidance. A 0.035' guidewire was placed in the right internal jugular ve in and confirmed under fluoroscopy guidance. The skin tract was dilated with serial dilators . A peel away sheath was inserted over the guidewire. A hemodialysis catheter was tunneled u nder the skin from the chest to the neck. Next the guidewire and inner dilator of the peel a way sheath was removed. The tunneled hemodialysis catheter was placed into the internal jugu lar vein over a peel away sheath. The catheter tip was positioned in the atrio caval junctio n and the position was confirmed with fluoroscopy. Heparinized saline solution was injected in the double lumen tunneled hemodialysis catheter and the catheter was securely anchored to the skin using 3-0 nylon sutures. Standard dressing was applied over the tunneled hemodialy sis catheter in the usual fashion. Hemostasis was achieved without complications. The patien t tolerated the procedure well and suffered no complications. I was present throughout the e ntire procedure. [facility] Access Us Result Date: 2019 This Point of Care (POC) ultrasound image has been reviewed and interpreted by the physicia n identified as the performing physician in the associated interpretation and report. Us Upper Extremity Dialysis Mapping Bilateral Result Date: 2019 UPPER EXTREMITY VEIN MAPPING CLINICAL INFORMATION: AV access creation COMPARISON: None PROC EDURE: Duplex evaluation of the veins of the upper extremities. All measurements in mm. Top number is depth of vein. Bottom number is diameter of vein. Measurements performed with tour niquet. FINDINGS: RIGHT ARM CEPHALIC VEIN (measurements given as diameter / depth in mm) Ins ertion: 2.9 mm/21 mm Upper Humerus: 3.7 mm/15.6 mm Mid Humerus: 2.9 mm/11.3 mm Elbow: 2.1 mm /10 mm Upper Forearm: 2.2 mm/8.9 mm Mid Forearm: 2.4 mm/8.2 mm Wrist: 1.5 mm/3.9 mm BASILIC VEIN (measurements given as diameter / depth in mm) Upper Humerus: Not measured. Mid Humerus : 3.7 mm/15.3 mm Elbow: 4.6 mm/14.2 mm Upper Forearm: 4.1 mm/3.5 mm Mid Forearm: 4.3 mm/2.8 mm Wrist: Not visualized. BRACHIAL VEIN (measurements given as diameter in mm) Upper Humerus : 3.5 mm Mid Humerus: 3.6 mm Elbow: 3.4 mm AXILLARY VEIN: 8.2 mm BRACHIAL ARTERY DISTAL: 3.8 mm RADIAL ARTERY WRIST: 1.7 mm ULNAR ARTERY WRIST: 2.2 mm LEFT ARM CEPHALIC VEIN (measureme nts given as diameter / depth in mm) Insertion: 3.2 mm/17.4 mm Upper Humerus: 3.5 mm/7.4 mm Mid Humerus: 3.6 mm/5.9 mm Elbow: 2.3 mm/3.9 mm Upper Forearm: 3.8 mm/5.4 mm Mid Forearm: 3. 8 mm/7.1 mm Wrist: 2.9 mm/5.0 mm BASILIC VEIN (measurements given as diameter / depth in mm) Upper Humerus: 3.2 mm/16.1 mm Mid Humerus: 3.2 mm/10.8 mm Elbow: 3.0 mm/6.8 mm Upper Forear m: 2.9 mm/4.3 mm Mid Forearm: 1.5 mm/3.2 mm Wrist: Not visualized. BRACHIAL VEIN (measuremen ts given as diameter in mm) Upper Humerus: 3.0 mm Mid Humerus: 3.2 mm Elbow: 4.1 mm AXILLARY VEIN: 5.5 mm BRACHIAL ARTERY DISTAL: 4.2 mm RADIAL ARTERY WRIST: 2.0 mm ULNAR ARTERY WRIST: 2.7 mm 1. No evidence of superficial or deep venous thrombosis in the upper extremity veins. 2. Tr iphasic waveform noted in all arteries. 3. Bilateral upper extremity vein mapping measuremen ts as above. Signed by: DO Plascencia Edward Sign Date/Time: 2019 11:54 AM PROBLEM LIST Principal Problem: SIRS (systemic inflammatory response syndrome) (HCC) Active Problems: Gastroenteritis End-stage renal disease (HCC) Prolonged Q-T interval on ECG Cyst of right ovary ASSESSMENT & PLAN ESRD ON HD No need for hd/ uf from fluid electrolyte acid base balance point of view Assess daily for need for hd & uf PD catheter removed 02/04/19, Got HD catheter placed 02/05/19 Fluid restriction 1.2 litres/24 hours Strict I & O Daily RFP Renal diet Daily weights will help with subsequent hd with uf Dose all meds per protocol for ESRD on hd ANEMIA in ESRD stable EPOGEN TO KEEP HGB 10-11 Lab Results Component Value Date HGB 10.2 (L) 02/10/2019 HGB 10.2 (L) 02/10/2019 HGB 10.4 (L) 02/09/2019 FERRITIN 56 10/27/2015 LABIRON 12 (L) 10/27/2015 HYPERTENSION Controlled WATCH BP CLOSELY DURING HOSPITALIZATION LOW NA DIET Will adjust BP meds according to BP readings BP Readings from Last 3 Encounters: 02/11/19 (!) 89/53 01/09/19 105/55 12/27/18 104/63 HYPERPHOSPHATEMIA worsened LOW P DIET PO4 BINDERS, continue Renvela with meals Lab Results Component Value Date PHOS 6.0 (H) 02/04/2019 PHOS 5.6 (H) 02/03/2019 PHOS 5.4 (H) 02/01/2019 HYPOALBUMINEMIA INCREASE PROTEIN INTAKE Lab Results Component Value Date ALB 2.9 (L) 02/04/2019 ALB 1.8 (L) 02/03/2019 ALB 2.0 (L) 02/02/2019 CASE DISCUSSED IN DETAIL WITH PATIENT/ care team, ANSWERS ALL QUESTIONS IN DETAIL, VERBALIZ ES UNDERSTANDING LINDEN ALONZO MD 02/11/2019 JUAN F QUAEMPTS Seen earlier and charting completed later Dictation software, bLife, used which may contain error for similar sounding words even af ter review. Personal communication requested for any clarification. Portions of my notes may have been carried over for continuity of care. Alonzo oCol MD - 02/11/2019 10:22 AM PDTFormatting of this note might be different from the origi nal. Progress Notes by Alonzo Correa MD at 02/11/19 1022 Author: Alonzo Correa MD Service: Infectious Disease Author Type: Physic uma Filed: 02/11/19 194 Date of Service: 02/11/19 1022 Status: Signed Power Wood Sawyer: Alonzo Correa MD (Physician) [facility]: Infectious Diseases Progress Note Hospital Day: LOS: 10 days Post-Op Day: 7 Days Post-Op CC: Follow up on peritonitis SUBJECTIVE/OVERNIGHT EVENTS Pt states her abdominal pain is better. Her WBC trended down again after 2 days of Meropenem. Denies side effects. REVIEW OF SYSTEMS GI: denies diarrhea, Constitutional: denies fever and chills and Integumentary: denies skin rash MEDICATIONS: famotidine 20 mg Oral Daily Or famotidine 20 mg Intravenous Daily heparin (porcine) 5000 unit/0.5mL 5,000 Units Subcutaneous 2 times per day meropenem 500 mg Intravenous Q24H pantoprazole 40 mg Oral QAM AC sevelamer 800 mg Oral TID WC sodium chloride (PF) 10 mL Intravenous Q8H traZODone 100 mg Oral Nightly vancomycin 1,000 mg Intravenous See Admin Instructions dextrose PRN Medications acetaminophen OR acetaminophen, dextrose, dextrose, dextrose, fentaNYL OR fentaNYL, glucagon, glucagon, HYDROcodone-acetaminophen OR HYDROcodone-acetaminophen, LORazepam, polyethylene glycol, potassium chloride OR potassium chloride OR potassium chloride, promethazine PHYSICAL EXAM Vital Signs: BP (!) 89/53 (BP Location: Right upper arm) | Pulse 74 | Temp 99 F (37.2 C) (Oral) | Resp 18 | Ht 1.575 m (5' 2") | Wt 83.6 kg (184 lb 3.2 oz) | SpO2 97% | ? N o | BMI 33.69 kg/m Temp (24hrs), Av.9 F (37.2 C), Min:98.2 F (36.8 C), Max:99.2 F (37.3 C) Focused exam shows: General exam: No distress, cooperative with exam. HEENT: sclera non-icteric, no visible oral thrush Cardiovascular: regular rate and rhythm Lungs: no tachypnea, clear breath sounds. Mildly decreased at bases Abdomen: no distension, bowel sounds present, much improved pain to palpation lower abdomen . Extremities/MSK: No edema, no joint effusions Skin: No lesions, normal turgor Neurologic: Awake, cranial nerves intact. Follows commands. Lines and tubes unchanged LABS: All labs reviewed. CBC: Lab Results Component Value Date WBC 11.67 (H) 02/11/2019 RBC 3.15 (L) 02/11/2019 HGB 9.5 (L) 02/11/2019 HCT 29.1 (L) 02/11/2019 MCV 92.3 02/11/2019 MCH 30.1 02/11/2019 MCHC 32.6 02/11/2019 RDW 51.6 02/11/2019 PLT 280 02/11/2019 MPV 8.8 02/11/2019 DIFFTYPE MANUAL 02/11/2019 CMP: Lab Results Component Value Date NA 140 02/11/2019 K 4.0 02/11/2019 CL 102 02/11/2019 CO2 29 02/11/2019 ANIONGAP 13 02/11/2019 GLUF 97 02/11/2019 BUN 15 02/11/2019 CREATININE 6.5 (H) 02/11/2019 BCR 2 02/11/2019 CA 8.0 (L) 02/11/2019 CA 9.0 09/07/2017 PROT 5.5 (L) 02/03/2019 ALB 2.9 (L) 02/04/2019 GLOB 3.7 02/03/2019 BILITOT 0.2 02/03/2019 ALP 69 02/03/2019 AST 7 (L) 02/03/2019 ALT 12 02/03/2019 EGFR 7 (L) 02/11/2019 MICROBIOLOGY Results Procedure Component Value Units Date/Time Fluid culture w/gram stain [[id number]] Collected: 02/01/19 0751 Specimen: Body Fluid from Peritoneal Fluid Updated: 02/11/19 0638 Specimen Description PERITONEAL FLUID SPECIAL REQUESTS HOLD 10 DAYS GRAM STAIN 1+ GRAM STAIN WBC'S SEEN GRAM STAIN NO ORGANISMS SEEN CULTURE NO GROWTH 10 DAYS IMAGING Reviewed images of : No new images for review ASSESSMENT & PLAN The patient is a 39 y.o.-year-old female with the following problems: Principal Problem: SIRS (systemic inflammatory response syndrome) (HCC) Active Problems: Gastroenteritis End-stage renal disease (HCC) Prolonged Q-T interval on ECG Cyst of right ovary 1. Recurrent peritoneal dialysis - associated peritonitis Culture negative. Status post PD catheter removal on February 04, 2019 with improvement in her clinical conditio n, initially high leukocytosis, and unfortunately with persistent abdominal pain and persist ent to low-level leukocytosis. Has been on vancomycin and ceftazidime since January 31, 2019. Changed to Meropenem 02/09/19 and WBC is now trending down. Will have to commit to 2 weeks of IV Meropenem until 02/23/19. Vancomycin only until 02/14/19. 2. Leukocytosis sec to #1. Trending down. Repeat CBC in the am. 3. ESRD Will have to complete OPAT with her PCP in [place]. 4. Mild elevation of procalcitonin, expected in ESRD. 5. Consider psychiatry evaluation for her severe adjustment reaction. Discussed with Dr. العلي and case management regarding OPAT. Orders entered. Side effects, duration and follow up were discussed with the patient. ID clinic in 2 weeks. Alonzo Up MD, MPH Infectious Diseases 02/11/2019 onvers ion Transaction, Provider Unknown - 02/11/2019 5:22 AM PDT Nurse Progress Note by Frances Tineo RN at 02/11/19521 Author: Frances Tineo RN Service: (none) Author Type: Registered Nurse Filed: 02/11/19521 Date of Service: 02/11/19521 Status: Signed Power Wood Sawyer: Frances Tineo RN (Registered Nurse) Tmax 99.2. C/o pain x2 this shift, pt medicated w/PRN meds per JAN, with relief noted and a ppears to be resting comfortably at this time. Promethazine given x1 for nausea. No acute c hanges from previous shift. Bed in low locked position, will continue to monitor. End of ift review completed by this RN. Frances Tineo RN Esteban Yoder MD - 02/10/2019 6:37 PM PDTFormatting of this note might be different from the or iginal. Progress Notes by Esteban العلي MD at 02/10/191836 Author: Esteban العلي MD Service: Internal Medicine Author Type: Physician Filed: 02/11/19 530 Date of Service: 02/10/191836 Status: Signed Power Wood Sawyer: Esteban العلي MD (Physician) [facility]: Hospitalist Progress Note Hospital Day: LOS: 9 days SUBJECTIVE C/o belly pain 5/10, dull achy better today Nausea better Patient Summary: Ms. Oconnor is a 38 yr old man with lady with HTN, GERD with esophagitis, hx of diverticuli tis and ESRD on CAPD, with recurrent culture negative bacterial peritonitis x3 presented to the ED on 02/01/19 at [facility] for abdominal pain, nausea, vomiting and diarrhea, transferred to [facility] for further management. She was afebrile but hypotensive on presentation. Her labs showed leukocytosis with bandemia. PD fluid analysis however showed w bc of 622 with 48% segs. She had elevated procalcitonin. ID has been consulted and currently on IP antibiotic. Removal of PD catheter was discussed with the patient. She was initially upset but later on agreed. Patient was referred to vascular surgery and had her PD cath rem dom on 02/04/19. She had a tunneled catheter placed on 02/05/19. Patient has been accepted to continue HD at [facility] on a MWF schedule. Scheduled Medications famotidine 20 mg Oral Daily Or famotidine 20 mg Intravenous Daily heparin (porcine) 5000 unit/0.5mL 5,000 Units Subcutaneous 2 times per day meropenem 500 mg Intravenous Q24H pantoprazole 40 mg Oral QAM AC sevelamer 800 mg Oral TID WC sodium chloride (PF) 10 mL Intravenous Q8H traZODone 100 mg Oral Nightly vancomycin 1,000 mg Intravenous See Admin Instructions Continuous Infusions dextrose PRN Medications acetaminophen OR acetaminophen, dextrose, dextrose, dextrose, fentaNYL OR fentaNYL, glucagon, glucagon, HYDROcodone-acetaminophen OR HYDROcodone-acetaminophen, LORazepam, polyethylene glycol, potassium chloride OR potassium chloride OR potassium chloride, promethazine OBJECTIVE Vital Signs: BP 110/59 (BP Location: Right upper arm) | Pulse 84 | Temp 98.6 F (37 C) (Oral) | Re sp 16 | Ht 1.575 m (5' 2") | Wt 83.1 kg (183 lb 3.2 oz) | SpO2 98% | ? No | BMI 33.51 kg/m Patient Vitals for the past 24 hrs: BP Temp Temp src Pulse Resp SpO2 Weight 02/10/19 1700 110/59 98.6 F (37 C) Oral 84 16 98 % - 02/10/19 1653 107/55 - - 76 16 98 % 83.1 kg (183 lb 3.2 oz) 02/10/19 1645 111/58 - - 74 16 98 % - 02/10/19 1630 105/60 - - 72 16 98 % - 02/10/19 1615 103/61 - - 74 16 96 % - 02/10/19 1600 102/58 - - 70 16 99 % - 02/10/19 1545 104/59 - - 68 16 97 % - 02/10/19 1530 102/59 - - 70 16 100 % - 02/10/19 1515 114/60 - - 67 16 100 % - 02/10/19 1500 119/61 - - 68 16 100 % - 02/10/19 1445 118/64 - - 67 15 99 % - 02/10/19 1430 101/60 - - 68 16 99 % - 02/10/19 1415 109/59 - - 70 16 99 % - 02/10/19 1400 131/62 - - 68 16 100 % - 02/10/19 1345 136/70 - - 70 15 100 % - 02/10/19 1330 109/60 - - 66 16 98 % - 02/10/19 1323 106/60 - - 65 16 100 % - 02/10/19 1322 - - - - - - 94.8 kg (208 lb 15.9 oz) 02/10/19 1255 110/62 98.1 F (36.7 C) Oral 72 16 100 % - 02/10/19 1139 122/68 98.6 F (37 C) Oral 76 16 100 % - 02/10/19 0859 111/70 98.5 F (36.9 C) Oral 77 20 99 % - 02/10/19 0521 - - - - - - 83.7 kg (184 lb 8 oz) 02/10/19 0444 102/58 98.8 F (37.1 C) Oral 73 18 97 % - 02/09/19 2326 112/59 97.9 F (36.6 C) Oral 69 18 100 % - 02/09/19 1925 104/72 99.2 F (37.3 C) Oral 65 18 100 % - Intake/Output Summary (Last 24 hours) at 02/10/19 1837 Last data filed at 02/10/19 1653 Gross per 24 hour Intake 2422.23 ml Output 3450 ml Net -1027.77 ml Physical Exam: Constitutional: . PLEASANT FEMALE IN BED NO DISTRESS IN BED, RESTING GETTING HD HEENT: Neck supple, no JVD, non icteric sclera. Cardiovascular: Normal rate, regular rhythm, normal heart sounds with S1 and S2, Pulmonary/Chest: Effort normal and breath sounds normal. r. No respiratory distress. no w heezes. no rales. exhibits no tenderness. Abdominal: Soft. Bowel sounds are normal. exhibits mild distension and no palpable mass. T here is mild mid abd tenderness. There is no rebound and no guarding. Extremeties/Musculoskeletal: Normal range of motion.exhibits no tenderness. exhibits no ed maico. Neurological: Alert and oriented to person, place, and time. Perrla NON FOCAL Skin: Skin is warm and dry. PALE DATA Recent Labs Lab 02/10/19 1019 02/10/19 0517 02/09/19 0507 WBC 12.41* 12.04* 14.51* RBC 3.43* 3.41* 3.52* HGB 10.2* 10.2* 10.4* HCT 31.8* 31.7* 32.8* MCV 92.6 93.0 93.0 MCH 29.6 30.0 29.4 MCHC 32.0 32.2 31.6* RDW 53.4* 51.6 52.1 PLT 273 261 260 MPV 8.2 8.7 9.0 DIFFTYPE AUTOMATED AUTOMATED MANUAL Recent Labs Lab 02/10/19 0517 02/09/19 0507 02/08/19 0518 NA 139 139 140 K 4.2 4.2 4.3 | 4.2 CL 103 102 103 CO2 24 28 22* BUN 21 13 33* CREATININE 9.9* 7.1* 12.4* GLUF 62* 66 68 No results for input(s): CKTOTAL, TROPONINI, TROPONINT, CKMBINDEX in the last 168 hours. Recent Labs Lab 02/04/19 0647 PHOS 6.0* No results for input(s): MG in the last 168 hours. Invalid input(s): ABG No results for input(s): CALCIUM in the last 168 hours. No results for input(s): APTT, INR, PTT in the last 168 hours. Us Abdomen Limited Result Date: 02/01/2019 1. Gallbladder and common bile duct are normal. 2. No acute abnormality of the liver. 3. No hydronephrosis of the right kidney. Signed by: Omar Cervantes Sign Date/Time: 02/01/2019 4:36 PM Us Upper Extremity Dialysis Mapping Bilateral Result Date: 2019 1. No evidence of superficial or deep venous thrombosis in the upper extremity veins. 2. Tr iphasic waveform noted in all arteries. 3. Bilateral upper extremity vein mapping measuremen ts as above. Signed by: DO Plascencia Edward Sign Date/Time: 2019 11:54 AM Us Shuttlecock Feather Trimmer Pelvis Transabd/endovaginal Result Date: 02/01/2019 1. Moderate free fluid in the pelvis likely related to known peritoneal dialysis catheter. Correlate clinically. 2. Hyperechoic enlarged right ovary with hyperemia and complex cystic structures. This is abnormal, and similar in size compared with 12/24/2018. This raises co ncern for ovarian mass. Enhanced MRI may help in further evaluation. 3. Complex cyst in the left ovary. Signed by: Cedric Smalls Sign Date/Time: 02/01/2019 11:09 AM PROBLEM LIST Principal Problem: SIRS (systemic inflammatory response syndrome) (HCC) Active Problems: Gastroenteritis End-stage renal disease (HCC) Prolonged Q-T interval on ECG Cyst of right ovary ASSESSMENT / PLAN PD peritonitis PD fluid culture and blood cultures remain with no growth. Removal of PD catheter 02/04/19 persistent elevation of wbc ^ and abdominal pain abx changed to merrem, vanco from [facility] No need for imaging, no ct needed for now ESRD On HD per night shift manager noted. HD setup MWF at [place]. S/p tunneled catheter placement 02/05/19 Hypokalemia Defer to nephrology HTN BP is good Off meds Anemia of ESRD Defer to nephrology regarding EPO Prolonged QTc Correct hypokalemia Check Mg DVT prophylaxis with heparin The plan has explained in detail to the patient , all questions were answered.All data was reviewed. I explained radiology and lab findings and plan of care to patient and relatives and they v erbalized understanding and agreement and had no more questions for me after my interaction with them. More than 35 minutes spent directly face to face with patient and more than 65% s pent for physical examination and talking with patient and relatives at bedside, on chart review, coordinating care with other providers, formulating a plan of care and management as well as Computerized Physician [employer]. Disposition: Home Code Status: Full Code Esteban العلي MD 02/10/2019 6:37 PM Linden Kincaid MD - 2:45 PM PDT Progress Notes by Linden Alonzo MD at 02/10/19 2024 Author: Linden Alonzo MD Service: Nephrology Author Type: Physician Filed: 02/17/192119 Date of Service: 02/10/191444 Status: Signed Power Wood Sawyer: Linden Alonzo MD (Physician) [facility]: NEPHROLOGY Dialysis/ Progress Note Ramona Hutson Elvin 39 y.o. 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 GERD (gastroesophageal reflux disease) Hypercalcemia 09/07/2017 Hyperphosphatemia 10/28/2015 Hypocalcemia 10/28/2015 Hypokalemia 06/04/2017 Itching 10/28/2015 Metabolic acidosis 10/28/2015 Obesity Peritonitis associated with peritoneal dialysis (HCC) 01/24/2017 Peritonitis due to infected peritoneal dialysis catheter (HCC) 12/08/2018 Secondary hyperparathyroidism (HCC) Uremia 10/28/2015 Past Surgical History Procedure Laterality Date CATHETER REMOVAL N/A 02/04/2019 Procedure: DIALYSIS CATHETER - REMOVAL; Surgeon: Qasim Pederson MD; Location: [facility] MAIN OR ; Service: Vascular; Laterality: N/A; Infected PD catheter removal ESOPHAGOGASTRODUODENOSCOPY N/A 09/10/2017 Procedure: ESOPHAGOGASTRODUODENOSCOPY; Surgeon: Beena Peters MD; Location: [facility] ENDOSCOP Y; Service: Gastroenterology; Laterality: N/A; PERITONEAL CATHETER INSERTION N/A 10/28/2015 Procedure: LAPAROSCOPIC - PERITONEAL DIALYSIS CATH INSERTION; Surgeon: Mundo Ramos MD; Lo cation: [facility] MAIN OR; Service: Vascular; Laterality: [...] and is a former smoker. Scheduled Medications famotidine 20 mg Oral Daily Or famotidine 20 mg Intravenous Daily heparin (porcine) 3,200 Units Intracatheter Once in dialysis heparin (porcine) 5000 unit/0.5mL 5,000 Units Subcutaneous 2 times per day meropenem 500 mg Intravenous Q24H pantoprazole 40 mg Oral QAM AC sevelamer 800 mg Oral TID WC sodium chloride (PF) 10 mL Intravenous Q8H traZODone 100 mg Oral Nightly vancomycin 1,000 mg Intravenous See Admin Instructions vancomycin 1,000 mg Intravenous Once Continuous Infusions dextrose PRN Medications acetaminophen OR acetaminophen, dextrose, dextrose, dextrose, fentaNYL OR fentaNYL, glucagon, glucagon, heparin (porcine), HYDROcodone-acetaminophen OR HYDROcodone-acetami nophen, LORazepam, polyethylene glycol, potassium chloride OR potassium chloride OR potassium chloride, promethazine Allergy: No Known Allergies OBJECTIVE Vital Signs: BP 122/68 (BP Location: Left upper arm) | Pulse 76 | Temp 98.6 F (37 C) (Oral) | Res p 16 | Ht 1.575 m (5' 2") | Wt 83.7 kg (184 lb 8 oz) | SpO2 100% | ? No | BMI 33.75 kg/m I&O Detailed Table: I/O last 3 completed shifts: In: 1626.2 [P.O.:950; I.V.:676.2] Out: - Weight change: Examination: Seen on hemodialysis with hemodialysis nurse APPEARANCE: The patient is lying in the bed in no distress, awake and alert VITALS: Reviewed as listed. EYES: +ve pale conjunctiva LUNGS: Clear to auscultation bilaterally, no respiratory distress. HEART: S1, S2, no pericardial rub noted. ABDOMEN: Full, soft, +ve generalized tenderness. EXTREMITIES: no pedal edema noted. NEUROLOGIC: No gross focal motor deficit noted, no Asterixis. PSYCH: The patient is alert and oriented x 3, mood and affect looks depressed R IJ HD CATHETER functioning well LABS: Recent Results (from the past 24 hour(s)) Basic metabolic panel Collection Time: 02/10/19 5:17 AM Result Value Ref Range SODIUM 139 135 - 145 mmol/L POTASSIUM 4.2 3.5 - 4.9 mmol/L CHLORIDE 103 99 - 109 mmol/L CO2 24 23 - 32 mmol/L ANION GAP AGAP 16 5 - 20 mmol/L GLUCOSE 62 (L) 65 - 99 mg/dL BUN 21 8 - 25 mg/dL CREATININE 9.9 (H) 0.50 - 1.00 mg/dL BUN/CREAT 2 CALCIUM 8.4 (L) 8.5 - 10.5 mg/dL EGFR 4 (L) >60 mL/min/1.73m2 CBC w/auto diff (reflex to manual) Collection Time: 02/10/19 5:17 AM Result Value Ref Range WBC 12.04 (H) 3.80 - 11.00 K/uL RBC 3.41 (L) 3.70 - 5.10 M/uL HGB 10.2 (L) 11.3 - 15.5 g/dL HCT 31.7 (L) 34.0 - 46.0 % MCV 93.0 80.0 - 100.0 fl MCH 30.0 27.0 - 34.0 pg MCHC 32.2 32.0 - 35.5 g/dL RDW SD 51.6 37 - 53 fl PLT 261 150 - 400 K/uL MPV 8.7 fl DIFF TYPE AUTOMATED NEUTROPHILS 78.70 % LYMPHOCYTES 12.72 % MONOCYTES 5.81 % EOSINOPHILS 2.15 % BASOPHILS 0.62 % NEUTROPHILS ABS 9.47 (H) 1.90 - 7.40 K/uL LYMPHOCYTES ABS 1.53 1.00 - 3.90 K/uL MONOCYTES ABS 0.70 0.00 - 0.80 K/uL EOSINOPHILS ABS 0.26 0.00 - 0.50 K/uL BASOPHILS ABS 0.08 0.00 - 0.10 K/uL MORPHOLOGY RBC AND PLT MORPHOLOGY APPEAR NORMAL Diff Comment SLIDE SCANNED, AGREES WITH AUTOMATED RESULTS. CBC w/auto diff (reflex to manual) Collection Time: 02/10/19 10:19 AM Result Value Ref Range WBC 12.41 (H) 3.80 - 11.00 K/uL RBC 3.43 (L) 3.70 - 5.10 M/uL HGB 10.2 (L) 11.3 - 15.5 g/dL HCT 31.8 (L) 34.0 - 46.0 % MCV 92.6 80.0 - 100.0 fl MCH 29.6 27.0 - 34.0 pg MCHC 32.0 32.0 - 35.5 g/dL RDW SD 53.4 (H) 37 - 53 fl PLT 273 150 - 400 K/uL MPV 8.2 fl DIFF TYPE AUTOMATED NEUTROPHILS 80.49 % LYMPHOCYTES 10.15 % MONOCYTES 5.93 % EOSINOPHILS 2.81 % BASOPHILS 0.62 % NEUTROPHILS ABS 9.99 (H) 1.90 - 7.40 K/uL LYMPHOCYTES ABS 1.26 1.00 - 3.90 K/uL MONOCYTES ABS 0.74 0.00 - 0.80 K/uL EOSINOPHILS ABS 0.35 0.00 - 0.50 K/uL BASOPHILS ABS 0.08 0.00 - 0.10 K/uL MORPHOLOGY RBC AND PLT MORPHOLOGY APPEAR NORMAL Diff Comment SLIDE SCANNED, AGREES WITH AUTOMATED RESULTS. Imaging Ir Dialysis Tunneled Cath Insert Result Date: 2019 DATE OF PROCEDURE: 2019 SURGEON: Qasim Pederson MD PREOPERATIVE DIAGNOSIS: 1. End stage renal disease requiring hemodialysis POSTOPERATIVE DIAGNOSIS: Same PROCEDURES: 1.Percutaneou s access of right internal jugular vein under ultrasound guidance and placement of tunneled hemodialysis catheter SEDATION:?Moderate conscious sedation was administered during the proc edure by the physician and nursing staff with continuous hemodynamic monitoring throughout t he procedure.?Total Sedation: Versed: 2mg; Fentanyl: 100mcg; Total Sedation Time: 22minutes ANTIBIOTIC PROPHYLAXIS: none FLUOROSCOPY TIME: 0.1min, Dose 1mGy EBL: Minimal COMPLICATIONS: None INDICATIONS: This is a 39 y.o. female patient with end stage renal disease requiring hemodialysis.The patient has been evaluated by his auto overhauler who determined that he is a suitable candidate to undergo hemodialysis. The patient has received appropriate training re garding hemodialysis. The patient understands the benefit and purpose of the planned procedu re of tunneled hemodialysis catheter insertion is to allow the patient to receive hemodialys is while waiting for a rat exterminator hemodialysis access such as arteriovenous venous fistula or graft to be created. The patient also understands the risks and complications of this proce dure which include bleeding, vessel perforation, vessel dissection, nerve and arterial injur y, and pneumothorax. The patient has accepted these benefits and risks and agreed to undergo the planned procedure. PROCEDURE IN DETAIL: The patient was taken to the operating room and placed on the table in the supine position. The patient's right neck and chest region was p repped sterilely and then draped in a standard fashion. The patient was given local and cons cious sedation anesthesia. Appropriate time out was performed whereby the patient and site o f surgery were identified. Percutaneous access of the right internal jugular vein was obtain ed under ultrasound guidance. A 0.035' guidewire was placed in the right internal jugular ve in and confirmed under fluoroscopy guidance. The skin tract was dilated with serial dilators . A peel away sheath was inserted over the guidewire. A hemodialysis catheter was tunneled u nder the skin from the chest to the neck. Next the guidewire and inner dilator of the peel a way sheath was removed. The tunneled hemodialysis catheter was placed into the internal jugu lar vein over a peel away sheath. The catheter tip was positioned in the atrio caval junctio n and the position was confirmed with fluoroscopy. Heparinized saline solution was injected in the double lumen tunneled hemodialysis catheter and the catheter was securely anchored to the skin using 3-0 nylon sutures. Standard dressing was applied over the tunneled hemodialy sis catheter in the usual fashion. Hemostasis was achieved without complications. The patien t tolerated the procedure well and suffered no complications. I was present throughout the e ntire procedure. Ir Guidance Vascular Access Us Result Date: 2019 This Point of Care (POC) ultrasound image has been reviewed and interpreted by the physicia n identified as the performing physician in the associated interpretation and report. Us Upper Extremity Dialysis Mapping Bilateral Result Date: 2019 UPPER EXTREMITY VEIN MAPPING CLINICAL INFORMATION: AV access creation COMPARISON: None PROC EDURE: Duplex evaluation of the veins of the upper extremities. All measurements in mm. Top number is depth of vein. Bottom number is diameter of vein. Measurements performed with tour niquet. FINDINGS: RIGHT ARM CEPHALIC VEIN (measurements given as diameter / depth in mm) Ins ertion: 2.9 mm/21 mm Upper Humerus: 3.7 mm/15.6 mm Mid Humerus: 2.9 mm/11.3 mm Elbow: 2.1 mm /10 mm Upper Forearm: 2.2 mm/8.9 mm Mid Forearm: 2.4 mm/8.2 mm Wrist: 1.5 mm/3.9 mm BASILIC VEIN (measurements given as diameter / depth in mm) Upper Humerus: Not measured. Mid Humerus : 3.7 mm/15.3 mm Elbow: 4.6 mm/14.2 mm Upper Forearm: 4.1 mm/3.5 mm Mid Forearm: 4.3 mm/2.8 mm Wrist: Not visualized. BRACHIAL VEIN (measurements given as diameter in mm) Upper Humerus : 3.5 mm Mid Humerus: 3.6 mm Elbow: 3.4 mm AXILLARY VEIN: 8.2 mm BRACHIAL ARTERY DISTAL: 3.8 mm RADIAL ARTERY WRIST: 1.7 mm ULNAR ARTERY WRIST: 2.2 mm LEFT ARM CEPHALIC VEIN (measureme nts given as diameter / depth in mm) Insertion: 3.2 mm/17.4 mm Upper Humerus: 3.5 mm/7.4 mm Mid Humerus: 3.6 mm/5.9 mm Elbow: 2.3 mm/3.9 mm Upper Forearm: 3.8 mm/5.4 mm Mid Forearm: 3. 8 mm/7.1 mm Wrist: 2.9 mm/5.0 mm BASILIC VEIN (measurements given as diameter / depth in mm) Upper Humerus: 3.2 mm/16.1 mm Mid Humerus: 3.2 mm/10.8 mm Elbow: 3.0 mm/6.8 mm Upper Forear m: 2.9 mm/4.3 mm Mid Forearm: 1.5 mm/3.2 mm Wrist: Not visualized. BRACHIAL VEIN (measuremen ts given as diameter in mm) Upper Humerus: 3.0 mm Mid Humerus: 3.2 mm Elbow: 4.1 mm AXILLARY VEIN: 5.5 mm BRACHIAL ARTERY DISTAL: 4.2 mm RADIAL ARTERY WRIST: 2.0 mm ULNAR ARTERY WRIST: 2.7 mm 1. No evidence of superficial or deep venous thrombosis in the upper extremity veins. 2. Tr iphasic waveform noted in all arteries. 3. Bilateral upper extremity vein mapping measuremen ts as above. Signed by: DO Plascencia Edward Sign Date/Time: 2019 11:54 AM PROBLEM LIST Principal Problem: SIRS (systemic inflammatory response syndrome) (HCC) Active Problems: Gastroenteritis End-stage renal disease (HCC) Prolonged Q-T interval on ECG Cyst of right ovary ASSESSMENT & PLAN ESRD ON HD Seen and examined on hd tolerating hd/ uf well Access functioning well HD FLOW SHEET REVIEWED Assess daily for need for hd & uf PD catheter removed 02/04/19, Got HD catheter placed 02/05/19 Fluid restriction 1.2 litres/24 hours Strict I & O Daily RFP Renal diet Daily weights will help with subsequent hd with uf Dose all meds per protocol for ESRD on hd ANEMIA in ESRD stable EPOGEN TO KEEP HGB 10-11 Lab Results Component Value Date HGB 10.2 (L) 02/10/2019 HGB 10.2 (L) 02/10/2019 HGB 10.4 (L) 02/09/2019 FERRITIN 56 10/27/2015 LABIRON 12 (L) 10/27/2015 HYPERTENSION Controlled WATCH BP CLOSELY DURING HOSPITALIZATION LOW NA DIET Will adjust BP meds according to BP readings BP Readings from Last 3 Encounters: 02/10/19 122/68 01/09/19 105/55 12/27/18 104/63 HYPERPHOSPHATEMIA Worsening LOW P DIET PO4 BINDERS, continue Renvela with meals Lab Results Component Value Date PHOS 6.0 (H) 02/04/2019 PHOS 5.6 (H) 02/03/2019 PHOS 5.4 (H) 02/01/2019 HYPOALBUMINEMIA Improving INCREASE PROTEIN INTAKE Lab Results Component Value Date ALB 2.9 (L) 02/04/2019 ALB 1.8 (L) 02/03/2019 ALB 2.0 (L) 02/02/2019 CASE DISCUSSED IN DETAIL WITH PATIENT/ care team, ANSWERS ALL QUESTIONS IN DETAIL, VERBALIZ ES UNDERSTANDING LINDEN ALONZO MD 02/10/2019 JUAN F QUAEMPTS Seen earlier and charting completed later Dictation software, bLife, used which may contain error for similar sounding words even af ter review. Personal communication requested for any clarification. Portions of my notes may have been carried over for continuity of care. onversion Transaction, Provider Unknown - 02/10/2019 10:05 AM PDTFormatting of this note might be different from t he original. Progress Notes by Stepan Carey RPH at 02/10/19 100 Author: Stepan Carey RPH Service: Pharmacy Author Type: Pharmacist Filed: 02/10/19 1005 Date of Service: 02/10/19 100 Status: Signed Power Wood Sawyer: Stepan Carey RPH (Pharmacist) Vancomycin Monitoring Subjective Pharmacy to dose vancomycin per protocol. Diagnosis: Abdominal infection. Vancomycin Day: 2 Objective Lab Results Component Value Date/Time CREATININE 9.9 (H) 02/10/2019 05:17 AM WBC 14.51 (H) 02/09/2019 05:07 AM Wt= 83.7 kg, CrCl= HD, Tmax afeb Cultures= MRSA Nare - neg; Bloodx2 TBOEt0S; Body fluid/peritoneal fluid - NGTD. Other A bx= Meropenem. Current Vancomycin Dose = 1000 mg IV post HD Assessment Trough goal: 15- 20 ug/mL Plan Continue vancomycin 1000 mg IV post HD. No levels indicated unless change in patient cli nical status or therapy extends beyond 5-7 days. Pharmacist: Stepan Carey Alonzo Cool MD - 02/10/2019 10:00 AM PDTFormatting of this note might be differe nt from the original. Progress Notes by Alonzo Correa MD at 02/10/19 1000 Author: Alonzo Correa MD Service: Infectious Disease Author Type: Physic uma Filed: 02/10/192120 Date of Service: 02/10/19 1000 Status: Signed Power Wood Sawyer: Alonzo Correa MD (Physician) [facility]: Infectious Diseases Progress Note Hospital Day: LOS: 9 days Post-Op Day: 6 Days Post-Op CC: follow up on infection and antibiotic therapy SUBJECTIVE/OVERNIGHT EVENTS The patient remains on treatment with antibiotics. No acute events over last 24 hours are reported. Has persistent leukocytosis and yesterday treatment changed to IV meropenem. Cultures remain no growth. Afebrile. REVIEW OF SYSTEMS GI: denies diarrhea, Constitutional: denies fever and chills and Integumentary: denies skin rash MEDICATIONS: epoetin chito 10,000 Units Intravenous Once in dialysis famotidine 20 mg Oral Daily Or famotidine 20 mg Intravenous Daily heparin (porcine) 1,000 Units Intracatheter Once in dialysis heparin (porcine) 3,200 Units Intracatheter Once in dialysis heparin (porcine) 5000 unit/0.5mL 5,000 Units Subcutaneous 2 times per day meropenem 500 mg Intravenous Q24H pantoprazole 40 mg Oral QAM AC sevelamer 800 mg Oral TID WC sodium chloride (PF) 10 mL Intravenous Q8H traZODone 100 mg Oral Nightly vancomycin 1,000 mg Intravenous See Admin Instructions dextrose PRN Medications acetaminophen OR acetaminophen, dextrose, dextrose, dextrose, fentaNYL OR fentaNYL, glucagon, glucagon, heparin (porcine), HYDROcodone-acetaminophen OR HYDROcodone-acetami nophen, LORazepam, polyethylene glycol, potassium chloride OR potassium chloride OR potassium chloride, promethazine PHYSICAL EXAM Vital Signs: BP 111/70 (BP Location: Right upper arm) | Pulse 77 | Temp 98.5 F (36.9 C) (Oral) | Resp 20 | Ht 1.575 m (5' 2") | Wt 83.7 kg (184 lb 8 oz) | SpO2 99% | ? No | BMI 33.75 kg/m Focused exam shows: General exam: No distress, cooperative with exam. HEENT: sclera non-icteric, no visible oral thrush Cardiovascular: regular rate and rhythm Lungs: no tachypnea, clear breath sounds. Mildly decreased at bases Abdomen: no distension, bowel sounds present, persistent pain to palpation lower abdomen. Extremities/MSK: No edema, no joint effusions Skin: No lesions, normal turgor Neurologic: Awake, cranial nerves intact. Follows commands. Lines and tubes unchanged LABS: All labs were reviewed. CBC: Lab Results Component Value Date WBC 12.41 (H) 02/10/2019 RBC 3.43 (L) 02/10/2019 HGB 10.2 (L) 02/10/2019 HCT 31.8 (L) 02/10/2019 MCV 92.6 02/10/2019 MCH 29.6 02/10/2019 MCHC 32.0 02/10/2019 RDW 53.4 (H) 02/10/2019 PLT 273 02/10/2019 MPV 8.2 02/10/2019 DIFFTYPE AUTOMATED 02/10/2019 ASSESSMENT & PLAN The patient is a 39 y.o.-year-old female with the following problems: Principal Problem: SIRS (systemic inflammatory response syndrome) (HCC) Active Problems: Gastroenteritis End-stage renal disease (HCC) Prolonged Q-T interval on ECG Cyst of right ovary Resolved Problems: * No resolved hospital problems. * 1. Recurrent peritoneal dialysis - associated peritonitis Culture negative. Status post PD catheter removal on February 04, 2019 with improvement in her clinical conditio n, initially high leukocytosis, and unfortunately with persistent abdominal pain and persist ent to low-level leukocytosis. Has been on vancomycin and ceftazidime since January 31, 2019. Changed to Meropenem 02/09/19 and today WBC down. Repeat CBC in the am. Continue vancomycin with hemodialysis. 2. Leukocytosis sec to #1. Repeat CBC in the am. 3. ESRD 4. Mild elevation of procalcitonin, expected in ESRD. 5. Consider psychiatry evaluation for her severe adjustment reaction. Discussed with Dr. العلي. Discussed with case management, not ready for final disposition yet. Pt will need probably IV access for 2-3 weeks of iv meropenem. Vancomycin can be given afte r HD. Alternatively, meropenem could be given after HD on dialysis days and the other days v ia peripheral iv. Alonzo Up MD, MPH Infectious Diseases 02/10/2019 onvers ion Transaction, Provider Unknown - 02/10/2019 9:15 AM PDT Case Management by Lilo Iqbal RN at 02/10/19914 Author: Lilo Iqbal RN Service: (none) Author Type: Registered Nurse Filed: 02/10/19 1010 Date of Service: 02/10/19914 Status: Addendum Power Wood Sawyer: Lilo Iqbal RN (Registered Nurse) Related Notes: Original Note by Lilo Iqbal RN (Registered Nurse) filed a t 02/10/19917 CM notified Kimber Vieira that pt will not be making her dialysis appt today. Per ID MD awaiting blood work to determine abx therapy. CM will continue to follow for disc harge planning. onver patric Transaction, Provider Unknown - 02/10/2019 5:23 AM PDT Nurse Progress Note by Frances Tineo RN at 02/10/19522 Author: Frances Tineo RN Service: (none) Author Type: Registered Nurse Filed: 02/10/19522 Date of Service: 02/10/19522 Status: Signed Power Wood Sawyer: Frances Tineo RN (Registered Nurse) VSS. C/o pain x1, pt medicated w/PRN pain meds, relief noted. Pt appears to be resting com fortably t/o this shift. No acute changes from previous shift. Call light within reach, be d in low locked position. End of shift review completed by this RN. Frances Tineo RN onver patric Transaction, Provider Unknown - 02/09/2019 10:45 PM PDT Progress Notes by April Chacon RPH at 02/09/192244 Author: April Chacon RPH Service: Pharmacy Author Type: Pharmacist Filed: 02/09/192244 Date of Service: 02/09/192244 Status: Signed Power Wood Sawyer: April Chacon RPH (Pharmacist) Initiation of Vancomycin Pharmacy Dosing Ramona Guzmanen 39 y.o. female 1.575 m (5' 2") 82 kg (180 lb 12.4 oz) Body mass index is 33.06 kg/m. Tenmile body weight: 50.1 kg (110 lb 7.2 oz) Adjusted ideal body weight: 62.9 kg (138 lb 9.3 oz) CREATININE Date Value Ref Range Status 02/09/2019 7.1 (H) 0.50 - 1.00 mg/dL Final Comment: SPECIMEN SLIGHTLY HEMOLYZED Estimated CrCl : Serum creatinine: 7.1 mg/dL (H) 02/09/19 0507 Estimated creatinine clearance: 10.4 mL/min (A) Indications: Intra-abdominal Infection. Dose per Protocol: Loading Dose: Vancomycin 1500 mg (18.3 mg/kg TBW) IV once, followed by Vancomycin 1000 mg I V during the last hour or immediately following each session of hemodialysis. Patient is ex pected to be on a Friday, Friday, and Friday regimen for hemodialysis. First Dose to be Given: 02/09/2019 @ 1730 Vancomycin Trough Due: To be determined in future if necesssary Goal Trough for Vancomycin: 15-20 mcg/mL Pharmacist: April Chacon 02/09/2019 10:42 PM onver patric Transaction, Provider Unknown - 02/09/2019 6:06 PM PDT Nurse Progress Note by Misty Camacho RN at 02/09/191805 Author: Misty Camacho RN Service: (none) Author Type: Registered Nurse Filed: 02/09/191809 Date of Service: 02/09/191805 Status: Signed Power Wood Sawyer: Misty Camacho RN (Registered Nurse) Pt A&Ox4, VSS at this time. Pain managed with PRN norco and nausea managed with PRN phenerg an and zofran. Pt tolerated PO this evening. Started on vancomycin and meropenum per MD anayeli gilman Pt to continue IV abx with dialysis in [place] when medically stable. Otherwise no acut e changes this shift. End of shift audit complete. Misty Camacho RN Esteban Yoder MD - 02/09/2019 3:01 PM PDTFormatting of this note might be different from the or iginal. Progress Notes by Esteban العلي MD at 02/09/19 4302 Author: Esteban العلي MD Service: Internal Medicine Author Type: Physician Filed: 02/09/19 1504 Date of Service: 02/09/19 1501 Status: Signed Power Wood Sawyer: Esteban العلي MD (Physician) [facility]: Hospitalist Progress Note Hospital Day: LOS: 8 days SUBJECTIVE C/o belly pain 5/10 Nausea, not eating Patient Summary: Ms. Oconnor is a 38 yr old man with lady with HTN, GERD with esophagitis, hx of diverticuli tis and ESRD on CAPD, with recurrent culture negative bacterial peritonitis x3 presented to the ED on 02/01/19 at [facility] for abdominal pain, nausea, vomiting and diarrhea, transferred to [facility] for further management. She was afebrile but hypotensive on presentation. Her labs showed leukocytosis with bandemia. PD fluid analysis however showed w bc of 622 with 48% segs. She had elevated procalcitonin. ID has been consulted and currently on IP antibiotic. Removal of PD catheter was discussed with the patient. She was initially upset but later on agreed. Patient was referred to vascular surgery and had her PD cath rem dom on 02/04/19. She had a tunneled catheter placed on 02/05/19. Patient has been accepted to continue HD at [place] dialysis on a MWF schedule. Scheduled Medications cefTAZidime 1 g Intravenous Q24H famotidine 20 mg Oral Daily Or famotidine 20 mg Intravenous Daily heparin (porcine) 5000 unit/0.5mL 5,000 Units Subcutaneous 2 times per day pantoprazole 40 mg Oral QAM AC sevelamer 800 mg Oral TID WC sodium chloride (PF) 10 mL Intravenous Q8H traZODone 100 mg Oral Nightly Continuous Infusions dextrose PRN Medications acetaminophen OR acetaminophen, dextrose, dextrose, dextrose, fentaNYL OR fentaNYL, glucagon, glucagon, HYDROcodone-acetaminophen OR HYDROcodone-acetaminophen, LORazepam, polyethylene glycol, potassium chloride OR potassium chloride OR potassium chloride, promethazine OBJECTIVE Vital Signs: BP 102/61 (BP Location: Right upper arm) | Pulse 70 | Temp 98.9 F (37.2 C) (Oral) | Resp 16 | Ht 1.575 m (5' 2") | Wt 82 kg (180 lb 12.4 oz) | SpO2 100% | ? No | BMI 33.06 kg/m Patient Vitals for the past 24 hrs: BP Temp Temp src Pulse Resp SpO2 02/09/19 1448 102/61 98.9 F (37.2 C) Oral 70 16 100 % 02/09/19 1124 103/61 99 F (37.2 C) Oral 68 20 100 % 02/09/19 0842 110/68 98.2 F (36.8 C) Oral 71 12 100 % 02/09/19 0634 106/56 - - - - - 02/09/19 0412 91/54 - - - - - 02/09/19 0403 (!) 80/52 - - - - - 02/09/19 0401 (!) 84/49 98.2 F (36.8 C) Oral 62 16 96 % 02/09/19 0000 - 99.4 F (37.4 C) Oral - 16 - 02/08/19 1947 106/61 98.8 F (37.1 C) Oral 88 16 100 % 02/08/19 1515 154/87 98.8 F (37.1 C) - 97 18 99 % 02/08/19 1502 - - - - 18 - Intake/Output Summary (Last 24 hours) at 02/09/19 1501 Last data filed at 02/09/19 1453 Gross per 24 hour Intake 1310 ml Output 3000 ml Net -1690 ml Physical Exam: Constitutional: . PLEASANT FEMALE IN BED NO DISTRESS IN BED, RESTING HEENT: Neck supple, no JVD, non icteric sclera. Cardiovascular: Normal rate, regular rhythm, normal heart sounds with S1 and S2, Exam re veals no gallop and no friction rub. Pulmonary/Chest: Effort normal and breath sounds normal. No stridor. No respiratory distres s. no wheezes. no rales. exhibits no tenderness. Abdominal: Soft. Bowel sounds are normal. exhibits mild distension and no palpable mass. T here is mild mid abd tenderness. There is no rebound and no guarding. Extremeties/Musculoskeletal: Normal range of motion.exhibits no tenderness. exhibits no ed maico. Neurological: Alert and oriented to person, place, and time. Perrla Skin: Skin is warm and dry. PALE DATA Recent Labs Lab 02/09/19 0507 02/08/19 0518 02/07/19 0645 WBC 14.51* 13.97* 13.89* RBC 3.52* 3.28* 3.16* HGB 10.4* 9.9* 9.4* HCT 32.8* 30.9* 29.8* MCV 93.0 94.2 94.3 MCH 29.4 30.1 29.7 MCHC 31.6* 31.9* 31.5* RDW 52.1 51.6 50.3 PLT 260 262 238 MPV 9.0 9.1 8.2 DIFFTYPE MANUAL MANUAL AUTOMATED Recent Labs Lab 02/09/19 0507 02/08/19 0518 02/07/19 0645 02/03/19 0600 NA 139 140 141 < > 139 K 4.2 4.3 | 4.2 3.9 < > 3.0* CL 102 103 105 < > 98* CO2 28 22* 28 < > 27 BUN 13 33* 116* < > 30* CREATININE 7.1* 12.4* 9.48* < > 12.8* PROT -- -- -- -- 5.5* BILITOT -- -- -- -- 0.2 ALT -- -- -- -- 12 AST -- -- -- -- 7* GLUF 66 68 95 < > 91 < > = values in this interval not displayed. No results for input(s): CKTOTAL, TROPONINI, TROPONINT, CKMBINDEX in the last 168 hours. Recent Labs Lab 02/04/19 0647 02/03/19 0600 PHOS 6.0* 5.6* Recent Labs Lab 02/03/19 0600 MG 3.2* Invalid input(s): ABG No results for input(s): CALCIUM in the last 168 hours. No results for input(s): APTT, INR, PTT in the last 168 hours. Us Abdomen Limited Result Date: 02/01/2019 1. Gallbladder and common bile duct are normal. 2. No acute abnormality of the liver. 3. No hydronephrosis of the right kidney. Signed by: Omar Cervantes Sign Date/Time: 02/01/2019 4:36 PM Us Upper Extremity Dialysis Mapping Bilateral Result Date: 2019 1. No evidence of superficial or deep venous thrombosis in the upper extremity veins. 2. Tr iphasic waveform noted in all arteries. 3. Bilateral upper extremity vein mapping measuremen ts as above. Signed by: DO Plascencia Edward Sign Date/Time: 2019 11:54 AM Us Shuttlecock Feather Trimmer Pelvis Transabd/endovaginal Result Date: 02/01/2019 1. Moderate free fluid in the pelvis likely related to known peritoneal dialysis catheter. Correlate clinically. 2. Hyperechoic enlarged right ovary with hyperemia and complex cystic structures. This is abnormal, and similar in size compared with 12/24/2018. This raises co ncern for ovarian mass. Enhanced MRI may help in further evaluation. 3. Complex cyst in the left ovary. Signed by: Cedric Smalls Sign Date/Time: 02/01/2019 11:09 AM PROBLEM LIST Principal Problem: SIRS (systemic inflammatory response syndrome) (HCC) Active Problems: Gastroenteritis End-stage renal disease (HCC) Prolonged Q-T interval on ECG Cyst of right ovary ASSESSMENT / PLAN PD peritonitis PD fluid culture and blood cultures remain with no growth ID following, c/w iv ceftazidime daily for now. Off vanco. Removal of PD catheter 02/04/19 persistent elevation of wbc ^ ESRD On HD per night shift manager noted. HD setup MWF at [place]. S/p tunneled catheter placement 02/05/19 Hypokalemia Defer to nephrology HTN Noted BP readings, acceptable Off meds Anemia of ESRD Defer to nephrology regarding EPO Prolonged QTc Correct hypokalemia Check Mg DVT prophylaxis with heparin The plan has explained in detail to the patient , all questions were answered.All data was reviewed. I explained radiology and lab findings and plan of care to patient and relatives and they v erbalized understanding and agreement and had no more questions for me after my interaction with them. More than 35 minutes spent directly face to face with patient and more than 65% s pent for physical examination and talking with patient and relatives at bedside, on chart review, coordinating care with other providers, formulating a plan of care and management as well as Computerized Physician [employer]. Disposition: Home Code Status: Full Code Esteban العلي MD 02/09/2019 3:01 PM Alonzo Cool MD - 02/09/2019 11:18 AM PDTFormatting of this note might be different from the ave ginal. Progress Notes by Alonzo Correa MD at 02/09/198 Author: Alonzo Correa MD Service: Infectious Disease Author Type: Alex eaton Filed: 02/09/19 1709 Date of Service: 02/09/191117 Status: Signed Power Wood Sawyer: Alonzo Correa MD (Physician) [facility]: Infectious Diseases Progress Note Hospital Day: LOS: 8 days Post-Op Day: 5 Days Post-Op CC: follow up on infection and antibiotic therapy SUBJECTIVE/OVERNIGHT EVENTS The patient remains on treatment with antibiotics. No acute events over last 24 hours are reported. The patient continues to have lingering leukocytosis. The patient is afebrile, and continu es to report some abdominal pain. Patient tolerating hemodialysis well. The patient received some Phenergan earlier today and she is quite sedated at the moment, denice cisse. REVIEW OF SYSTEMS GI: denies diarrhea, Constitutional: denies fever and chills and Integumentary: denies skin rash MEDICATIONS: cefTAZidime 1 g Intravenous Q24H famotidine 20 mg Oral Daily Or famotidine 20 mg Intravenous Daily heparin (porcine) 5000 unit/0.5mL 5,000 Units Subcutaneous 2 times per day pantoprazole 40 mg Oral QAM AC sevelamer 800 mg Oral TID WC sodium chloride (PF) 10 mL Intravenous Q8H traZODone 100 mg Oral Nightly dextrose PRN Medications acetaminophen OR acetaminophen, dextrose, dextrose, dextrose, fentaNYL OR fentaNYL, glucagon, glucagon, HYDROcodone-acetaminophen OR HYDROcodone-acetaminophen, LORazepam, polyethylene glycol, potassium chloride OR potassium chloride OR potassium chloride, promethazine PHYSICAL EXAM Vital Signs: BP 110/68 (BP Location: Right upper arm) | Pulse 71 | Temp 98.2 F (36.8 C) (Oral) | Resp 12 | Ht 1.575 m (5' 2") | Wt 82 kg (180 lb 12.4 oz) | SpO2 100% | ? No | BMI 33.06 kg/m Focused exam shows: General exam: No distress, cooperative with exam. HEENT: sclera non-icteric, no visible oral thrush Cardiovascular: regular rate and rhythm Lungs: no tachypnea, clear breath sounds. Mildly decreased at bases Abdomen: no distension, bowel sounds present, soft, mild pain to palpation in the mid abdom en. Extremities/MSK: No edema, no joint effusions Skin: No lesions, normal turgor Neurologic: Awake, cranial nerves intact. Follows commands. LABS: All labs were reviewed. CBC: Lab Results Component Value Date WBC 14.51 (H) 02/09/2019 RBC 3.52 (L) 02/09/2019 HGB 10.4 (L) 02/09/2019 HCT 32.8 (L) 02/09/2019 MCV 93.0 02/09/2019 MCH 29.4 02/09/2019 MCHC 31.6 (L) 02/09/2019 RDW 52.1 02/09/2019 PLT 260 02/09/2019 MPV 9.0 02/09/2019 DIFFTYPE MANUAL 02/09/2019 CMP: Lab Results Component Value Date NA 139 02/09/2019 K 4.2 02/09/2019 CL 102 02/09/2019 CO2 28 02/09/2019 ANIONGAP 13 02/09/2019 GLUF 66 02/09/2019 BUN 13 02/09/2019 CREATININE 7.1 (H) 02/09/2019 BCR 2 02/09/2019 CA 8.2 (L) 02/09/2019 CA 9.0 09/07/2017 PROT 5.5 (L) 02/03/2019 ALB 2.9 (L) 02/04/2019 GLOB 3.7 02/03/2019 BILITOT 0.2 02/03/2019 ALP 69 02/03/2019 AST 7 (L) 02/03/2019 ALT 12 02/03/2019 EGFR 6 (L) 02/09/2019 ASSESSMENT & PLAN The patient is a 39 y.o.-year-old female with the following problems: Principal Problem: SIRS (systemic inflammatory response syndrome) (HCC) Active Problems: Gastroenteritis End-stage renal disease (HCC) Prolonged Q-T interval on ECG Cyst of right ovary Resolved Problems: * No resolved hospital problems. * 1. Recurrent peritoneal dialysis - associated peritonitis Culture negative. Status post PD catheter removal on February 04, 2019 with improvement in her clinical conditio n, initially high leukocytosis, and unfortunately with persistent abdominal pain and persist ent to low-level leukocytosis. Has been on vancomycin and ceftazidime since January 31, 2019. 2. Leukocytosis sec to #1. Low grade leukocytosis persists and therefore her antibiotics will be changed to vancomycin and meropenem. Today, her abdomen is quite soft and nondisten ded, therefore we will wait to evaluate response to meropenem before considering CT of the a bdomen pelvis. 3. ESRD 4. Mild elevation of procalcitonin, expected in ESRD. 5. Consider psychiatry evaluation for her severe adjustment reaction. Discussed with Dr. العلي. Discussed with case management, not ready for final disposition yet. Alonzo Up MD, MPH Infectious Diseases 02/09/2019 Joe Kincaid MD - 02/09/2019 10:49 AM PDTFormatting of this note might be different from the origi nal. Progress Notes by Linden Alonzo MD at 02/09/19 104 Author: Linden Alonzo MD Service: Nephrology Author Type: Physician Filed: 02/16/192136 Date of Service: 02/09/191048 Status: Signed Power Wood Sawyer: Linden Alonzo MD (Physician) [facility]: NEPHROLOGY Dialysis/ Progress Note Ramona Oconnor 39 y.o. [id number] female [facility] Hospital Day: LOS: 8 days Patient with PMH as listed below admitted with nausea vomiting, abdominal pain and recurren t PD associated peritonitis, after discussion with the family PD catheter removed and patien t switched to hemodialysis Nephrology consulted for evaluation and management of ESRD CHRONIC SEVERE ASSOCIATED WITH FLUID ELECTROLYTE IMBALANCES Assess need for hd/uf PD catheter removed 02/04/19, Got HD catheter placed 02/05/19 SUBJECTIVE Seen and examined c/o abdominal pain with nausea Poor appetite No CHEST PAIN, SOB, VOMITING, DIARRHEA, FEVER, COUGH, [...] 10/25/15 showed normal sized kidneys. 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 GERD (gastroesophageal reflux disease) Hypercalcemia 09/07/2017 Hyperphosphatemia 10/28/2015 Hypocalcemia 10/28/2015 Hypokalemia 06/04/2017 Itching 10/28/2015 Metabolic acidosis 10/28/2015 Obesity Peritonitis associated with peritoneal dialysis (HCC) 01/24/2017 Peritonitis due to infected peritoneal dialysis catheter (HCC) 12/08/2018 Secondary hyperparathyroidism (HCC) Uremia 10/28/2015 Past Surgical History Procedure Laterality Date CATHETER REMOVAL N/A 02/04/2019 Procedure: DIALYSIS CATHETER - REMOVAL; Surgeon: Qasim Pederson MD; Location: [facility] MAIN OR ; Service: Vascular; Laterality: N/A; Infected PD catheter removal ESOPHAGOGASTRODUODENOSCOPY N/A 09/10/2017 Procedure: ESOPHAGOGASTRODUODENOSCOPY; Surgeon: Beena Peters MD; Location: [facility] ENDOSCOP Y; Service: Gastroenterology; Laterality: N/A; PERITONEAL CATHETER INSERTION N/A 10/28/2015 Procedure: LAPAROSCOPIC - PERITONEAL DIALYSIS CATH INSERTION; Surgeon: Mundo Ramos MD; Lo cation: [facility] MAIN OR; Service: Vascular; Laterality: [...] and is a former smoker. Scheduled Medications cefTAZidime 1 g Intravenous Q24H famotidine 20 mg Oral Daily Or famotidine 20 mg Intravenous Daily heparin (porcine) 5000 unit/0.5mL 5,000 Units Subcutaneous 2 times per day pantoprazole 40 mg Oral QAM AC sevelamer 800 mg Oral TID WC sodium chloride (PF) 10 mL Intravenous Q8H traZODone 100 mg Oral Nightly Continuous Infusions dextrose PRN Medications acetaminophen OR acetaminophen, dextrose, dextrose, dextrose, fentaNYL OR fentaNYL, glucagon, glucagon, HYDROcodone-acetaminophen OR HYDROcodone-acetaminophen, LORazepam, polyethylene glycol, potassium chloride OR potassium chloride OR potassium chloride, promethazine Allergy: No Known Allergies OBJECTIVE Vital Signs: BP 110/68 (BP Location: Right upper arm) | Pulse 71 | Temp 98.2 F (36.8 C) (Oral) | Resp 12 | Ht 1.575 m (5' 2") | Wt 82 kg (180 lb 12.4 oz) | SpO2 100% | ? No | BMI 33.06 kg/m I&O Detailed Table: I/O last 3 completed shifts: In: 1350 [P.O.:350; Other:1000] Out: 3000 [Other:3000] Weight change: Examination: APPEARANCE: The patient is lying in the bed in no distress, frail appearing VITALS: Reviewed as listed. EYES: +ve pale conjunctiva LUNGS: Clear to auscultation bilaterally, no respiratory distress. HEART: S1, S2, no pericardial rub noted. ABDOMEN: Full, soft, +ve generalized tenderness. EXTREMITIES: no pedal edema noted. NEUROLOGIC: No gross focal motor deficit noted, no Asterixis. PSYCH: The patient is alert and oriented x 3, mood and affect looks depressed R IJ HD CATHETER in place LABS: Recent Results (from the past 24 hour(s)) Basic metabolic panel Collection Time: 02/09/19 5:07 AM Result Value Ref Range SODIUM 139 135 - 145 mmol/L POTASSIUM 4.2 3.5 - 4.9 mmol/L CHLORIDE 102 99 - 109 mmol/L CO2 28 23 - 32 mmol/L ANION GAP AGAP 13 5 - 20 mmol/L GLUCOSE 66 65 - 99 mg/dL BUN 13 8 - 25 mg/dL CREATININE 7.1 (H) 0.50 - 1.00 mg/dL BUN/CREAT 2 CALCIUM 8.2 (L) 8.5 - 10.5 mg/dL EGFR 6 (L) >60 mL/min/1.73m2 Imaging Ir Dialysis Tunneled Cath Insert Result Date: 2019 DATE OF PROCEDURE: 2019 SURGEON: Qasim Pederson MD PREOPERATIVE DIAGNOSIS: 1. End stage renal disease requiring hemodialysis POSTOPERATIVE DIAGNOSIS: Same PROCEDURES: 1.Percutaneou s access of right internal jugular vein under ultrasound guidance and placement of tunneled hemodialysis catheter SEDATION:?Moderate conscious sedation was administered during the proc edure by the physician and nursing staff with continuous hemodynamic monitoring throughout t he procedure.?Total Sedation: Versed: 2mg; Fentanyl: 100mcg; Total Sedation Time: 22minutes ANTIBIOTIC PROPHYLAXIS: none FLUOROSCOPY TIME: 0.1min, Dose 1mGy EBL: Minimal COMPLICATIONS: None INDICATIONS: This is a 39 y.o. female patient with end stage renal disease requiring hemodialysis.The patient has been evaluated by his auto overhauler who determined that he is a suitable candidate to undergo hemodialysis. The patient has received appropriate training re garding hemodialysis. The patient understands the benefit and purpose of the planned procedu re of tunneled hemodialysis catheter insertion is to allow the patient to receive hemodialys is while waiting for a rat exterminator hemodialysis access such as arteriovenous venous fistula or graft to be created. The patient also understands the risks and complications of this proce dure which include bleeding, vessel perforation, vessel dissection, nerve and arterial injur y, and pneumothorax. The patient has accepted these benefits and risks and agreed to undergo the planned procedure. PROCEDURE IN DETAIL: The patient was taken to the operating room and placed on the table in the supine position. The patient's right neck and chest region was p repped sterilely and then draped in a standard fashion. The patient was given local and cons cious sedation anesthesia. Appropriate time out was performed whereby the patient and site o f surgery were identified. Percutaneous access of the right internal jugular vein was obtain ed under ultrasound guidance. A 0.035' guidewire was placed in the right internal jugular ve in and confirmed under fluoroscopy guidance. The skin tract was dilated with serial dilators . A peel away sheath was inserted over the guidewire. A hemodialysis catheter was tunneled u nder the skin from the chest to the neck. Next the guidewire and inner dilator of the peel a way sheath was removed. The tunneled hemodialysis catheter was placed into the internal jugu lar vein over a peel away sheath. The catheter tip was positioned in the atrio caval junctio n and the position was confirmed with fluoroscopy. Heparinized saline solution was injected in the double lumen tunneled hemodialysis catheter and the catheter was securely anchored to the skin using 3-0 nylon sutures. Standard dressing was applied over the tunneled hemodialy sis catheter in the usual fashion. Hemostasis was achieved without complications. The patien t tolerated the procedure well and suffered no complications. I was present throughout the e ntire procedure. Ir Guidance Vascular Access Us Result Date: 2019 This Point of Care (POC) ultrasound image has been reviewed and interpreted by the physicia n elidia as the performing physician in the associated interpretation and report. Us Upper Extremity Dialysis Mapping Bilateral Result Date: 2019 UPPER EXTREMITY VEIN MAPPING CLINICAL INFORMATION: AV access creation COMPARISON: None PROC EDURE: Duplex evaluation of the veins of the upper extremities. All measurements in mm. Top number is depth of vein. Bottom number is diameter of vein. Measurements performed with tour niquet. FINDINGS: RIGHT ARM CEPHALIC VEIN (measurements given as diameter / depth in mm) Ins ertion: 2.9 mm/21 mm Upper Humerus: 3.7 mm/15.6 mm Mid Humerus: 2.9 mm/11.3 mm Elbow: 2.1 mm /10 mm Upper Forearm: 2.2 mm/8.9 mm Mid Forearm: 2.4 mm/8.2 mm Wrist: 1.5 mm/3.9 mm BASILIC VEIN (measurements given as diameter / depth in mm) Upper Humerus: Not measured. Mid Humerus : 3.7 mm/15.3 mm Elbow: 4.6 mm/14.2 mm Upper Forearm: 4.1 mm/3.5 mm Mid Forearm: 4.3 mm/2.8 mm Wrist: Not visualized. BRACHIAL VEIN (measurements given as diameter in mm) Upper Humerus : 3.5 mm Mid Humerus: 3.6 mm Elbow: 3.4 mm AXILLARY VEIN: 8.2 mm BRACHIAL ARTERY DISTAL: 3.8 mm RADIAL ARTERY WRIST: 1.7 mm ULNAR ARTERY WRIST: 2.2 mm LEFT ARM CEPHALIC VEIN (measureme nts given as diameter / depth in mm) Insertion: 3.2 mm/17.4 mm Upper Humerus: 3.5 mm/7.4 mm Mid Humerus: 3.6 mm/5.9 mm Elbow: 2.3 mm/3.9 mm Upper Forearm: 3.8 mm/5.4 mm Mid Forearm: 3. 8 mm/7.1 mm Wrist: 2.9 mm/5.0 mm BASILIC VEIN (measurements given as diameter / depth in mm) Upper Humerus: 3.2 mm/16.1 mm Mid Humerus: 3.2 mm/10.8 mm Elbow: 3.0 mm/6.8 mm Upper Forear m: 2.9 mm/4.3 mm Mid Forearm: 1.5 mm/3.2 mm Wrist: Not visualized. BRACHIAL VEIN (measuremen ts given as diameter in mm) Upper Humerus: 3.0 mm Mid Humerus: 3.2 mm Elbow: 4.1 mm AXILLARY VEIN: 5.5 mm BRACHIAL ARTERY DISTAL: 4.2 mm RADIAL ARTERY WRIST: 2.0 mm ULNAR ARTERY WRIST: 2.7 mm 1. No evidence of superficial or deep venous thrombosis in the upper extremity veins. 2. Tr iphasic waveform noted in all arteries. 3. Bilateral upper extremity vein mapping measuremen ts as above. Signed by: DO Plascencia Edward Sign Date/Time: 2019 11:54 AM PROBLEM LIST Principal Problem: SIRS (systemic inflammatory response syndrome) (HCC) Active Problems: Gastroenteritis End-stage renal disease (HCC) Prolonged Q-T interval on ECG Cyst of right ovary ASSESSMENT & PLAN ESRD ON HD No need for hd/ uf from fluid electrolyte acid base balance point of view Assess daily for need for hd & uf PD catheter removed 02/04/19, Got HD catheter placed 02/05/19 Fluid restriction 1.2 litres/24 hours Strict I & O Daily RFP Renal diet Daily weights will help with subsequent hd with uf Dose all meds per protocol for ESRD on hd ANEMIA in ESRD stable EPOGEN TO KEEP HGB 10-11 Lab Results Component Value Date HGB 9.9 (L) 02/08/2019 HGB 9.4 (L) 02/07/2019 HGB 9.0 (L) 02/06/2019 FERRITIN 56 10/27/2015 LABIRON 12 (L) 10/27/2015 HYPERTENSION Controlled WATCH BP CLOSELY DURING HOSPITALIZATION LOW NA DIET Will adjust BP meds according to BP readings BP Readings from Last 3 Encounters: 02/09/19 110/68 01/09/19 105/55 12/27/18 104/63 HYPERPHOSPHATEMIA LOW P DIET PO4 BINDERS, continue Renvela with meals Lab Results Component Value Date PHOS 6.0 (H) 02/04/2019 PHOS 5.6 (H) 02/03/2019 PHOS 5.4 (H) 02/01/2019 HYPOALBUMINEMIA INCREASE PROTEIN INTAKE Lab Results Component Value Date ALB 2.9 (L) 02/04/2019 ALB 1.8 (L) 02/03/2019 ALB 2.0 (L) 02/02/2019 PD related Peritonitis culture neg On abx per ID CASE DISCUSSED IN DETAIL WITH PATIENT/ care team, ANSWERS ALL QUESTIONS IN DETAIL, VERBALIZ ES UNDERSTANDING LINDEN ALONZO MD 02/09/2019 JUAN F QUAEMPTS Seen earlier and charting completed later Dictation software, bLife, used which may contain error for similar sounding words even af ter review. Personal communication requested for any clarification. Portions of my notes may have been carried over for continuity of care. onversion Transaction, Provider Unknown - 02/08/2019 5:46 PM PDTFormatting of this note might be different from t he original. Nurse Progress Note by Misty Camacho RN at 02/08/191745 Author: Misty Camacho RN Service: (none) Author Type: Registered Nurse Filed: 02/08/191748 Date of Service: 02/08/191745 Status: Addendum Power Wood Sawyer: Misty Camacho RN (Registered Nurse) Related Notes: Original Note by Misty Camacho RN (Registered Nurse) filed at 02/08/191747 Pt A&Ox4, VSS at this time. Pain managed with PRN norco and fentanyl. Nausea managed with P RN phenergan. Continued IV abx. Pt received HD this afternoon, 2L removed. Pt was tearful an d anxious for most of the day secondary to pain and situation. New order for PRN Ativan [facility] ed by . Pt refused all meals and renvela throughout shift. Dietary supplementation started by nutrition, in pts fridge. Otherwise no acute changes this shift. End of shift audit complete. Misty Camacho RN onver patric Transaction, Provider Unknown - 02/08/2019 4:18 PM PDT Progress Notes by Janet Gutierrez RD at 02/08/19 1618 Author: Janet Gutierrez RD Service: (none) Author Type: Registered Dietitian Filed: 02/08/198 Date of Service: 02/08/191617 Status: Signed Power Wood Sawyer: Janet Gutierrez RD (Registered Dietitian) 02/08/19 1600 Subjective Timepoint Admit Pt c/o Pt triggered for LOS. Pt admitted for SIRS. Per charting pt has gone from doing PD t o HD. RN reports pt is tearful, anxious, in pain and has N/V. Pt receiving HD this afternoon . Reported by RN Fluid / Beverage Intake Oral Fluids Amount RN reports pt has been refusing water. Liquid Meal Replacement or Supplement Notified kitchen to send [facility] and RN/pt c an order prn. Food Intake Amount of Food RN reports pt has not been eating, pt refuses food- saying she can't keep an ything down. Per charting pt had on 02/07: Dinner (food from outside); 02/06: S100% (fruit cup ); 02/05: nothing charted; 02/04: NPO; 02/03: pt refused; 02/02: nothing charted. Type of Food / Meals Renal diet Nutrition-Focused Physical Findings Extremities, Muscles and Bones Generalized non-pitting edema noted. Digestive System (Mouth to Rectum) N/V per RN. Anthropometrics Weight change Admit wt: 81.3 kg. Pt's BMI is 32.8 and pt is 163% of IBW. Current wt: 82 kg. Wt is up 0.7 kg since admit. Continue to monitor wt trend. Biochemical data, medical tests, and procedures reviewed Biochemical data, medical tests, and procedures reviewed Labs reviewed. Estimated Energy Needs Total Energy Estimated Needs 5736-5733 kcal/day Method for Estimating Needs 25-30 kcal/kg based on adj BW of 57.8 kg Estimated Protein Needs Total Protein Estimated Needs 69-87 g/day Method for Estimating Needs 1.2-1.5 g/kg based on adj BW of 57.8 kg Recommendations Recommended energy needs Renal diet as ordered. [facility], pt/RN to order as needed. Encourage po intake with protein rich foods. Monitor and follow as indicated. Nutritional Risk Nutritional risk High Follow up date 02/11/[address] Esteban Yoder MD - 02/08/2019 4:04 PM PDTFormatting of this note might be different from the or iginal. Progress Notes by Esteban العلي MD at 02/08/19 2439 Author: Esteban العلي MD Service: Internal Medicine Author Type: Physician Filed: 02/09/19 1349 Date of Service: 02/08/19 1602 Status: Signed Power Wood Sawyer: Esteban العلي MD (Physician) [facility]: Hospitalist Progress Note Hospital Day: LOS: 7 days SUBJECTIVE Feels okay, tired of being here Patient Summary: Ms. Oconnor is a 38 yr old man with lady with HTN, GERD with esophagitis, hx of diverticuli tis and ESRD on CAPD, with recurrent culture negative bacterial peritonitis x3 presented to the ED on 02/01/19 at [facility] for abdominal pain, nausea, vomiting and diarrhea, transferred to [facility] for further management. She was afebrile but hypotensive on presentation. Her labs showed leukocytosis with bandemia. PD fluid analysis however showed w bc of 622 with 48% segs. She had elevated procalcitonin. ID has been consulted and currently on IP antibiotic. Removal of PD catheter was discussed with the patient. She was initially upset but later on agreed. Patient was referred to vascular surgery and had her PD cath rem dom on 02/04/19. She had a tunneled catheter placed on 02/05/19. Patient has been accepted to continue HD at [facility] on a MWF schedule. Scheduled Medications cefTAZidime 1 g Intravenous Q24H famotidine 20 mg Oral Daily Or famotidine 20 mg Intravenous Daily heparin (porcine) 5000 unit/0.5mL 5,000 Units Subcutaneous 2 times per day pantoprazole 40 mg Oral QAM AC sevelamer 800 mg Oral TID WC sodium chloride (PF) 10 mL Intravenous Q8H traZODone 100 mg Oral Nightly Continuous Infusions dextrose PRN Medications acetaminophen OR acetaminophen, dextrose, dextrose, dextrose, fentaNYL OR fentaNYL, glucagon, glucagon, HYDROcodone-acetaminophen OR HYDROcodone-acetaminophen, polyethylen e glycol, potassium chloride OR potassium chloride OR potassium chloride, promethazi ne OBJECTIVE Vital Signs: BP 154/87 | Pulse 97 | Temp 98.8 F (37.1 C) | Resp 18 | Ht 1.575 m (5' 2") | Wt 82 kg (180 lb 12.4 oz) | SpO2 99% | ? No | BMI 33.06 kg/m Patient Vitals for the past 24 hrs: BP Temp Temp src Pulse Resp SpO2 Weight 02/08/19 1515 154/87 98.8 F (37.1 C) - 97 18 99 % - 02/08/19 1502 - - - - 18 - - 02/08/19 1445 116/74 - - 78 18 100 % - 02/08/19 1430 118/73 - - 80 18 99 % - 02/08/19 1415 121/73 - - 72 18 97 % - 02/08/19 1400 117/64 - - 66 18 97 % - 02/08/19 1345 113/63 - - 68 18 96 % - 02/08/19 1330 114/68 - - 68 18 97 % - 02/08/19 1315 119/69 - - 64 18 99 % - 02/08/19 1300 138/68 - - 67 18 100 % - 02/08/19 1245 118/67 - - 66 18 100 % - 02/08/19 1230 157/76 - - 87 18 100 % - 02/08/19 1215 164/73 - - 98 18 99 % - 02/08/19 1200 126/82 - - 68 18 100 % - 02/08/19 1145 125/84 - - 67 18 100 % - 02/08/19 1132 125/84 - - 67 18 100 % - 02/08/19 1131 120/74 98.3 F (36.8 C) - 81 18 100 % - 02/08/19 0823 118/75 98.2 F (36.8 C) Oral 74 18 100 % - 02/08/19 0438 111/65 98.5 F (36.9 C) Oral 74 16 99 % - 02/08/19 0430 - - - - - - 82 kg (180 lb 12.4 oz) 02/07/19 2338 108/56 99 F (37.2 C) Oral 72 16 100 % - 02/07/19 1909 105/56 99 F (37.2 C) Oral 74 16 100 % - 02/07/19 1610 98/59 99 F (37.2 C) Oral 78 16 98 % - Intake/Output Summary (Last 24 hours) at 02/08/19 1604 Last data filed at 02/08/19 1502 Gross per 24 hour Intake 2490 ml Output 3000 ml Net -510 ml Physical Exam: Constitutional: . Appears IN NO DISTRESS IN BED, RESTING HEENT: Neck supple, no JVD, non icteric sclera. Cardiovascular: Normal rate, regular rhythm, normal heart sounds with S1 and S2, Exam re veals no gallop and no friction rub. Pulmonary/Chest: Effort normal and breath sounds normal. No stridor. No respiratory distres s. no wheezes. no rales. exhibits no tenderness. Abdominal: Soft. Bowel sounds are normal. exhibits mild distension and no palpable mass. T here is mild mid abd tenderness. There is no rebound and no guarding. Extremeties/Musculoskeletal: Normal range of motion.exhibits no tenderness. exhibits no ed maico. Neurological: Alert and oriented to person, place, and time. Perrla Skin: Skin is warm and dry. PALE DATA Recent Labs Lab 02/08/1951702/07/19 0645 02/06/19 0519 WBC 13.97* 13.89* 13.68* RBC 3.28* 3.16* 3.04* HGB 9.9* 9.4* 9.0* HCT 30.9* 29.8* 27.8* MCV 94.2 94.3 91.4 MCH 30.1 29.7 29.6 MCHC 31.9* 31.5* 32.4 RDW 51.6 50.3 46.8 PLT 262 238 250 MPV 9.1 8.2 8.2 DIFFTYPE MANUAL AUTOMATED MANUAL Recent Labs Lab 02/08/19 0518 02/07/19 0645 02/06/19 0519 02/03/19 0600 02/02/19 0540 NA 140 141 139 < > 139 140 K 4.3 | 4.2 3.9 3.9 < > 3.0* 3.4* CL 103 105 102 < > 98* 101 CO2 22* 28 27 < > 27 25 BUN 33* 116* 16 < > 30* 29* CREATININE 12.4* 9.48* 8.0* < > 12.8* 12.6* PROT -- -- -- -- 5.5* 6.2* BILITOT -- -- -- -- 0.2 0.3 ALT -- -- -- -- 12 13 AST -- -- -- -- 7* 12 GLUF 68 95 73 < > 91 100* < > = values in this interval not displayed. No results for input(s): CKTOTAL, TROPONINI, TROPONINT, CKMBINDEX in the last 168 hours. Recent Labs Lab 02/04/19 0647 02/03/19 0600 PHOS 6.0* 5.6* Recent Labs Lab 02/03/19 0600 MG 3.2* Invalid input(s): ABG No results for input(s): CALCIUM in the last 168 hours. No results for input(s): APTT, INR, PTT in the last 168 hours. Us Abdomen Limited Result Date: 02/01/2019 1. Gallbladder and common bile duct are normal. 2. No acute abnormality of the liver. 3. No hydronephrosis of the right kidney. Signed by: Omar Cervantes Sign Date/Time: 02/01/2019 4:36 PM Us Upper Extremity Dialysis Mapping Bilateral Result Date: 2019 1. No evidence of superficial or deep venous thrombosis in the upper extremity veins. 2. Tr iphasic waveform noted in all arteries. 3. Bilateral upper extremity vein mapping measuremen ts as above. Signed by: DO Plascencia Edward Sign Date/Time: 2019 11:54 AM Us [place] Feather Trimmer Pelvis Transabd/endovaginal Result Date: 02/01/2019 1. Moderate free fluid in the pelvis likely related to known peritoneal dialysis catheter. Correlate clinically. 2. Hyperechoic enlarged right ovary with hyperemia and complex cystic structures. This is abnormal, and similar in size compared with 12/24/2018. This raises co ncern for ovarian mass. Enhanced MRI may help in further evaluation. 3. Complex cyst in the left ovary. Signed by: Cedric Smalls Sign Date/Time: 02/01/2019 11:09 AM PROBLEM LIST Principal Problem: SIRS (systemic inflammatory response syndrome) (HCC) Active Problems: Gastroenteritis End-stage renal disease (HCC) Prolonged Q-T interval on ECG Cyst of right ovary ASSESSMENT / PLAN PD peritonitis PD fluid culture and blood cultures remain with no growth ID following, on iv ceftazidime daily for now. Off vanco. Removal of PD catheter 02/04/19 ESRD On HD per night shift manager noted. HD setup MWF at [place]. S/p tunneled catheter placement 02/05/19 Continue P binder Hypokalemia Defer to nephrology HTN Noted BP readings, acceptable Off meds Anemia of ESRD Defer to nephrology regarding EPO Prolonged QTc Correct hypokalemia Check Mg DVT prophylaxis with heparin The plan has explained in detail to the patient , all questions were answered.All data was reviewed. I explained radiology and lab findings and plan of care to patient and relatives and they v erbalized understanding and agreement and had no more questions for me after my interaction with them. More than 35 minutes spent directly face to face with patient and more than 65% s pent for physical examination and talking with patient and relatives at bedside, on chart review, coordinating care with other providers, formulating a plan of care and management as well as Computerized Physician [employer]. Disposition: Home Code Status: Full Code Esteban العلي MD 02/08/2019 4:04 PM Linden Kincaid MD - 12:15 PM PDT Progress Notes by Linden Alonzo MD at 02/08/19 121 Author: Linden Alonzo MD Service: Nephrology Author Type: Physician Filed: 02/08/19 1731 Date of Service: 02/08/195 Status: Signed Power Wood Sawyer: Linden Alonzo MD (Physician) [facility]: NEPHROLOGY Dialysis/ Progress Note Ramona Guzmanen 39 y.o. [id number] female [facility] Hospital Day: LOS: 7 days Patient with PMH as listed below admitted with nausea vomiting, abdominal pain and recurren t PD associated peritonitis, after discussion with the family PD catheter removed and patien t switched to hemodialysis Nephrology consulted for evaluation and management of ESRD CHRONIC SEVERE ASSOCIATED WITH FLUID ELECTROLYTE IMBALANCES Assess need for hd/uf PD catheter removed 02/04/19, Got HD catheter placed 02/05/19 SUBJECTIVE Seen and examined on hd with hd rn tolerating hd/ uf well Access functioning well HD FLOW SHEET REVIEWED feels depressed, c/o abdominal pain DENIES CHEST PAIN, SOB, VOMITING, DIARRHEA, FEVER, [...] 10/25/15 showed normal sized kidneys. 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 GERD (gastroesophageal reflux disease) Hypercalcemia 09/07/2017 Hyperphosphatemia 10/28/2015 Hypocalcemia 10/28/2015 Hypokalemia 06/04/2017 Itching 10/28/2015 Metabolic acidosis 10/28/2015 Obesity Peritonitis associated with peritoneal dialysis (HCC) 01/24/2017 Peritonitis due to infected peritoneal dialysis catheter (HCC) 12/08/2018 Secondary hyperparathyroidism (HCC) Uremia 10/28/2015 Past Surgical History Procedure Laterality Date CATHETER REMOVAL N/A 02/04/2019 Procedure: DIALYSIS CATHETER - REMOVAL; Surgeon: Qasim Pederson MD; Location: [facility] MAIN OR ; Service: Vascular; Laterality: N/A; Infected PD catheter removal ESOPHAGOGASTRODUODENOSCOPY N/A 09/10/2017 Procedure: ESOPHAGOGASTRODUODENOSCOPY; Surgeon: Beena Peters MD; Location: [facility] ENDOSCOP Y; Service: Gastroenterology; Laterality: N/A; PERITONEAL CATHETER INSERTION N/A 10/28/2015 Procedure: LAPAROSCOPIC - PERITONEAL DIALYSIS CATH INSERTION; Surgeon: Mundo Ramos MD; Lo cation: [facility] MAIN OR; Service: Vascular; Laterality: [...] and is a former smoker. Scheduled Medications cefTAZidime 1 g Intravenous Q24H famotidine 20 mg Oral Daily Or famotidine 20 mg Intravenous Daily heparin (porcine) 5000 unit/0.5mL 5,000 Units Subcutaneous 2 times per day pantoprazole 40 mg Oral QAM AC sevelamer 800 mg Oral TID WC sodium chloride (PF) 10 mL Intravenous Q8H traZODone 100 mg Oral Nightly Continuous Infusions dextrose PRN Medications acetaminophen OR acetaminophen, dextrose, dextrose, dextrose, fentaNYL OR fentaNYL, glucagon, glucagon, HYDROcodone-acetaminophen OR HYDROcodone-acetaminophen, LORazepam, polyethylene glycol, potassium chloride OR potassium chloride OR potassium chloride, promethazine Allergy: No Known Allergies OBJECTIVE Vital Signs: BP 154/87 | Pulse 97 | Temp 98.8 F (37.1 C) | Resp 18 | Ht 1.575 m (5' 2") | Wt 82 kg (180 lb 12.4 oz) | SpO2 99% | ? No | BMI 33.06 kg/m I&O Detailed Table: I/O last 3 completed shifts: In: 2264.7 [P.O.:2140; I.V.:124.7] Out: - Weight change: 0.169 kg (6 oz) Examination: Seen on hemodialysis with hemodialysis nurse APPEARANCE: The patient is lying in the bed in no distress VITALS: Reviewed as listed. EYES: +ve pale conjunctiva LUNGS: Clear to auscultation bilaterally. HEART: S1, S2, no pericardial rub noted. ABDOMEN: Full, soft, +ve generalized tenderness. EXTREMITIES: no pedal edema noted. NEUROLOGIC: No gross focal motor deficit noted, no Asterixis. PSYCH: The patient is alert and oriented x 3, mood and affect looks depressed R IJ HD CATHETER functioning well LABS: Recent Results (from the past 24 hour(s)) Potassium Collection Time: 02/08/19 5:18 AM Result Value Ref Range POTASSIUM 4.2 3.5 - 4.9 mmol/L CBC W/Auto Diff (Reflex to Manual) Collection Time: 02/08/19 5:18 AM Result Value Ref Range WBC 13.97 (H) 3.80 - 11.00 K/uL RBC 3.28 (L) 3.70 - 5.10 M/uL HGB 9.9 (L) 11.3 - 15.5 g/dL HCT 30.9 (L) 34.0 - 46.0 % MCV 94.2 80.0 - 100.0 fl MCH 30.1 27.0 - 34.0 pg MCHC 31.9 (L) 32.0 - 35.5 g/dL RDW SD 51.6 37 - 53 fl PLT 262 150 - 400 K/uL MPV 9.1 fl DIFF TYPE MANUAL Neutrophils Manual 69 % Bands 2 % METAMYELOCYTES 1 % Lymphocytes Manual 23 % Monocytes Manual 3 % Eosinophils Manual 2 % Neutrophils Absolute 9.64 (H) 1.90 - 7.40 K/uL Bands Manual 0.28 (H) 0.00 - 0.20 K/uL Metamyelocytes Absolute 0.14 (H) 0.00 K/uL Lymphocytes Absolute 3.21 1.00 - 3.90 K/uL Monocytes Absolute 0.42 0.00 - 0.80 K/uL Eosinophils Absolute 0.28 0.00 - 0.50 K/uL Platelet Estimate ADEQUATE MORPHOLOGY 1+ Basic metabolic panel Collection Time: 02/08/19 5:18 AM Result Value Ref Range SODIUM 140 135 - 145 mmol/L POTASSIUM 4.3 3.5 - 4.9 mmol/L CHLORIDE 103 99 - 109 mmol/L CO2 22 (L) 23 - 32 mmol/L ANION GAP AGAP 19 5 - 20 mmol/L GLUCOSE 68 65 - 99 mg/dL BUN 33 (H) 8 - 25 mg/dL CREATININE 12.4 (H) 0.50 - 1.00 mg/dL BUN/CREAT 3 CALCIUM 7.9 (L) 8.5 - 10.5 mg/dL EGFR 3 (L) >60 mL/min/1.73m2 Vancomycin, random Collection Time: 02/08/19 8:16 AM Result Value Ref Range VANCOMYCIN,RANDOM 15.2 ug/mL Imaging Ir Dialysis Tunneled Cath Insert Result Date: 2019 DATE OF PROCEDURE: 2019 SURGEON: Qasim Pederson MD PREOPERATIVE DIAGNOSIS: 1. End stage renal disease requiring hemodialysis POSTOPERATIVE DIAGNOSIS: Same PROCEDURES: 1.Percutaneou s access of right internal jugular vein under ultrasound guidance and placement of tunneled hemodialysis catheter SEDATION:?Moderate conscious sedation was administered during the proc edure by the physician and nursing staff with continuous hemodynamic monitoring throughout t he procedure.?Total Sedation: Versed: 2mg; Fentanyl: 100mcg; Total Sedation Time: 22minutes ANTIBIOTIC PROPHYLAXIS: none FLUOROSCOPY TIME: 0.1min, Dose 1mGy EBL: Minimal COMPLICATIONS: None INDICATIONS: This is a 39 y.o. female patient with end stage renal disease requiring hemodialysis.The patient has been evaluated by his auto overhauler who determined that he is a suitable candidate to undergo hemodialysis. The patient has received appropriate training re garding hemodialysis. The patient understands the benefit and purpose of the planned procedu re of tunneled hemodialysis catheter insertion is to allow the patient to receive hemodialys is while waiting for a rat exterminator hemodialysis access such as arteriovenous venous fistula or graft to be created. The patient also understands the risks and complications of this proce dure which include bleeding, vessel perforation, vessel dissection, nerve and arterial injur y, and pneumothorax. The patient has accepted these benefits and risks and agreed to undergo the planned procedure. PROCEDURE IN DETAIL: The patient was taken to the operating room and placed on the table in the supine position. The patient's right neck and chest region was p repped sterilely and then draped in a standard fashion. The patient was given local and cons cious sedation anesthesia. Appropriate time out was performed whereby the patient and site o f surgery were identified. Percutaneous access of the right internal jugular vein was obtain ed under ultrasound guidance. A 0.035' guidewire was placed in the right internal jugular ve in and confirmed under fluoroscopy guidance. The skin tract was dilated with serial dilators . A peel away sheath was inserted over the guidewire. A hemodialysis catheter was tunneled u nder the skin from the chest to the neck. Next the guidewire and inner dilator of the peel a way sheath was removed. The tunneled hemodialysis catheter was placed into the internal jugu lar vein over a peel away sheath. The catheter tip was positioned in the atrio caval junctio n and the position was confirmed with fluoroscopy. Heparinized saline solution was injected in the double lumen tunneled hemodialysis catheter and the catheter was securely anchored to the skin using 3-0 nylon sutures. Standard dressing was applied over the tunneled hemodialy sis catheter in the usual fashion. Hemostasis was achieved without complications. The patien t tolerated the procedure well and suffered no complications. I was present throughout the e ntire procedure. Ir Guidance Vascular Access Us Result Date: 2019 This Point of Care (POC) ultrasound image has been reviewed and interpreted by the physicia n identified as the performing physician in the associated interpretation and report. Us Upper Extremity Dialysis Mapping Bilateral Result Date: 2019 UPPER EXTREMITY VEIN MAPPING CLINICAL INFORMATION: AV access creation COMPARISON: None PROC EDURE: Duplex evaluation of the veins of the upper extremities. All measurements in mm. Top number is depth of vein. Bottom number is diameter of vein. Measurements performed with tour niquet. FINDINGS: RIGHT ARM CEPHALIC VEIN (measurements given as diameter / depth in mm) Ins ertion: 2.9 mm/21 mm Upper Humerus: 3.7 mm/15.6 mm Mid Humerus: 2.9 mm/11.3 mm Elbow: 2.1 mm /10 mm Upper Forearm: 2.2 mm/8.9 mm Mid Forearm: 2.4 mm/8.2 mm Wrist: 1.5 mm/3.9 mm BASILIC VEIN (measurements given as diameter / depth in mm) Upper Humerus: Not measured. Mid Humerus : 3.7 mm/15.3 mm Elbow: 4.6 mm/14.2 mm Upper Forearm: 4.1 mm/3.5 mm Mid Forearm: 4.3 mm/2.8 mm Wrist: Not visualized. BRACHIAL VEIN (measurements given as diameter in mm) Upper Humerus : 3.5 mm Mid Humerus: 3.6 mm Elbow: 3.4 mm AXILLARY VEIN: 8.2 mm BRACHIAL ARTERY DISTAL: 3.8 mm RADIAL ARTERY WRIST: 1.7 mm ULNAR ARTERY WRIST: 2.2 mm LEFT ARM CEPHALIC VEIN (measureme nts given as diameter / depth in mm) Insertion: 3.2 mm/17.4 mm Upper Humerus: 3.5 mm/7.4 mm Mid Humerus: 3.6 mm/5.9 mm Elbow: 2.3 mm/3.9 mm Upper Forearm: 3.8 mm/5.4 mm Mid Forearm: 3. 8 mm/7.1 mm Wrist: 2.9 mm/5.0 mm BASILIC VEIN (measurements given as diameter / depth in mm) Upper Humerus: 3.2 mm/16.1 mm Mid Humerus: 3.2 mm/10.8 mm Elbow: 3.0 mm/6.8 mm Upper Forear m: 2.9 mm/4.3 mm Mid Forearm: 1.5 mm/3.2 mm Wrist: Not visualized. BRACHIAL VEIN (measuremen ts given as diameter in mm) Upper Humerus: 3.0 mm Mid Humerus: 3.2 mm Elbow: 4.1 mm AXILLARY VEIN: 5.5 mm BRACHIAL ARTERY DISTAL: 4.2 mm RADIAL ARTERY WRIST: 2.0 mm ULNAR ARTERY WRIST: 2.7 mm 1. No evidence of superficial or deep venous thrombosis in the upper extremity veins. 2. Tr iphasic waveform noted in all arteries. 3. Bilateral upper extremity vein mapping measuremen ts as above. Signed by: DO Plascencia Edward Sign Date/Time: 2019 11:54 AM PROBLEM LIST Principal Problem: SIRS (systemic inflammatory response syndrome) (HCC) Active Problems: Gastroenteritis End-stage renal disease (HCC) Prolonged Q-T interval on ECG Cyst of right ovary ASSESSMENT & PLAN ESRD ON HD Seen and examined on hd tolerating hd/ uf well Access functioning well HD FLOW SHEET REVIEWED Assess daily for need for hd & uf PD catheter removed 02/04/19, Got HD catheter placed 02/05/19 Fluid restriction 1.2 litres/24 hours Strict I & O Daily RFP Renal diet Daily weights will help with subsequent hd with uf Dose all meds per protocol for ESRD on hd ANEMIA in ESRD stable EPOGEN TO KEEP HGB 10-11 Lab Results Component Value Date HGB 9.9 (L) 02/08/2019 HGB 9.4 (L) 02/07/2019 HGB 9.0 (L) 02/06/2019 FERRITIN 56 10/27/2015 LABIRON 12 (L) 10/27/2015 HYPERTENSION Controlled WATCH BP CLOSELY DURING HOSPITALIZATION LOW NA DIET Will adjust BP meds according to BP readings BP Readings from Last 3 Encounters: 02/08/19 154/87 01/09/19 105/55 12/27/18 104/63 HYPERPHOSPHATEMIA LOW P DIET PO4 BINDERS, continue Renvela with meals Lab Results Component Value Date PHOS 6.0 (H) 02/04/2019 PHOS 5.6 (H) 02/03/2019 PHOS 5.4 (H) 02/01/2019 HYPOALBUMINEMIA INCREASE PROTEIN INTAKE Lab Results Component Value Date ALB 2.9 (L) 02/04/2019 ALB 1.8 (L) 02/03/2019 ALB 2.0 (L) 02/02/2019 CASE DISCUSSED IN DETAIL WITH PATIENT/ care team, ANSWERS ALL QUESTIONS IN DETAIL, VERBALIZ ES UNDERSTANDING LINDEN ALONZO MD 02/08/2019 JUAN F QUAEMPTS Seen earlier and charting completed later Dictation software, bLife, used which may contain error for similar sounding words even af ter review. Personal communication requested for any clarification. Portions of my notes may have been carried over for continuity of care. Alonzo Cool MD - 02/08/2019 10:58 AM PDTFormatting of this note might be different from the origi nal. Progress Notes by Alonzo Correa MD at 02/08/19 1058 Author: Alonzo Correa MD Service: Infectious Disease Author Type: Physic uma Filed: 02/08/19 1722 Date of Service: 02/08/191057 Status: Signed Power Wood Sawyer: Alonzo Correa MD (Physician) [facility]: Infectious Diseases Progress Note Hospital Day: LOS: 7 days Post-Op Day: 4 Days Post-Op CC: follow up on infection and antibiotic therapy SUBJECTIVE/OVERNIGHT EVENTS The patient remains on treatment with antibiotics. No acute events over last 24 hours are reported. The patient reports that her abdominal pain is improving slowly. She has been afebrile. She maintains a low-grade leukocytosis which still hovering around 13-14,000. The patient is having hemodialysis today. She is very tearful, depressed, having an exagge rated adjustment reaction to her kidney insufficiency problems. REVIEW OF SYSTEMS GI: denies diarrhea, Constitutional: denies fever and chills and Integumentary: denies skin rash MEDICATIONS: cefTAZidime 1 g Intravenous Q24H famotidine 20 mg Oral Daily Or famotidine 20 mg Intravenous Daily heparin (porcine) 5000 unit/0.5mL 5,000 Units Subcutaneous 2 times per day pantoprazole 40 mg Oral QAM AC sevelamer 800 mg Oral TID WC sodium chloride (PF) 10 mL Intravenous Q8H traZODone 100 mg Oral Nightly dextrose PRN Medications acetaminophen OR acetaminophen, dextrose, dextrose, dextrose, fentaNYL OR fentaNYL, glucagon, glucagon, HYDROcodone-acetaminophen OR HYDROcodone-acetaminophen, polyethylen e glycol, potassium chloride OR potassium chloride OR potassium chloride, promethazi ne PHYSICAL EXAM Vital Signs: BP 118/75 (BP Location: Right upper arm) | Pulse 74 | Temp 98.2 F (36.8 C) (Oral) | Resp 18 | Ht 1.575 m (5' 2") | Wt 81.8 kg (180 lb 6.5 oz) | SpO2 100% | ? N o | BMI 33.00 kg/m Focused exam shows: General exam: No distress, cooperative with exam. HEENT: sclera non-icteric, no visible oral thrush Cardiovascular: regular rate and rhythm Lungs: no tachypnea, clear breath sounds. Mildly decreased at bases Abdomen: no distension, pain to palpation diffusely, bowel sounds present Extremities/MSK: No edema, no joint effusions Skin: No lesions, normal turgor Neurologic: Awake, cranial nerves intact. Follows commands. LABS: All labs were reviewed. CBC: Lab Results Component Value Date WBC 13.97 (H) 02/08/2019 RBC 3.28 (L) 02/08/2019 HGB 9.9 (L) 02/08/2019 HCT 30.9 (L) 02/08/2019 MCV 94.2 02/08/2019 MCH 30.1 02/08/2019 MCHC 31.9 (L) 02/08/2019 RDW 51.6 02/08/2019 PLT 262 02/08/2019 MPV 9.1 02/08/2019 DIFFTYPE MANUAL 02/08/2019 CMP: Lab Results Component Value Date NA 140 02/08/2019 K 4.2 02/08/2019 K 4.3 02/08/2019 CL 103 02/08/2019 CO2 22 (L) 02/08/2019 ANIONGAP 19 02/08/2019 GLUF 68 02/08/2019 BUN 33 (H) 02/08/2019 CREATININE 12.4 (H) 02/08/2019 BCR 3 02/08/2019 CA 7.9 (L) 02/08/2019 CA 9.0 09/07/2017 PROT 5.5 (L) 02/03/2019 ALB 2.9 (L) 02/04/2019 GLOB 3.7 02/03/2019 BILITOT 0.2 02/03/2019 ALP 69 02/03/2019 AST 7 (L) 02/03/2019 ALT 12 02/03/2019 EGFR 3 (L) 02/08/2019 ASSESSMENT & PLAN The patient is a 39 y.o.-year-old female with the following problems: Principal Problem: SIRS (systemic inflammatory response syndrome) (HCC) Active Problems: Gastroenteritis End-stage renal disease (HCC) Prolonged Q-T interval on ECG Cyst of right ovary Resolved Problems: * No resolved hospital problems. * 1. Recurrent peritoneal dialysis - associated peritonitis 2. Leukocytosis sec to #1. Low grade leukocytosis persists but overall the patient reports slow clinical improvement. Continue to monitor this for 1 more day, however if the patient continues to have leukocytosis, will consider CT of the abdomen pelvis and escalation of an tibiotic therapy. 3. ESRD 4. Mild elevation of procalcitonin, expected in ESRD. 5. Consider psychiatry evaluation for her severe adjustment reaction. Clinically stable from ID standpoint Continue current antibiotic regimen. Monitor daily kidney function. CBC CMP in the am. Alonzo Up MD, MPH Infectious Diseases 02/08/2019 onvers ion Transaction, Provider Unknown - 02/08/2019 9:22 AM PDT Case Management by Lilo Iqbal RN at 02/08/19921 Author: Lilo Iqbal RN Service: (none) Author Type: Registered Nurse Filed: 02/08/19924 Date of Service: 02/08/19921 Status: Signed Power Wood Sawyer: Lilo Iqbal, RN (Registered Nurse) notified Kimber Vieira that pt will not be making her dialysis appt today as she is n ot medically ready for discharge. onver patric Transaction, Provider Unknown - 02/08/2019 6:48 AM PDT Nurse Progress Note by Lizz Gill RN at 02/08/19647 Author: Lizz Gill RN Service: (none) Author Type: Registered Nurse Filed: 02/08/19647 Date of Service: 02/08/19647 Status: Signed Power Wood Sawyer: Lizz Gill RN (Registered Nurse) Pt c/o nausea this AM, PRN phenergan given per MAR. Lizz Gill RN onver patric Transaction, Provider Unknown - 02/08/2019 4:54 AM PDT Nurse Progress Note by Lizz Gill RN at 02/08/19453 Author: Lizz iGll RN Service: (none) Author Type: Registered Nurse Filed: 02/08/19456 Date of Service: 02/08/19453 Status: Signed Power Wood Sawyer: Lizz Gill RN (Registered Nurse) Pt A&O, VSS. Max temp 99. No acute changes overnight. Patent IV. Chart check complete, report to be given to day RN at 0700. Lizz Gill RN Linden Kincaid MD - 02/07/2019 7:19 PM PDTFormatting of this note might be different from the orig inal. Progress Notes by Linden Alonzo MD at 02/07/191918 Author: Linden Alonzo MD Service: Nephrology Author Type: Physician Filed: 02/07/191935 Date of Service: 02/07/191918 Status: Signed Power Wood Sawyer: Linden Alonzo MD (Physician) [facility]: NEPHROLOGY Progress Note Ramona Oconnor 39 y.o. 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 GERD (gastroesophageal reflux disease) Hypercalcemia 09/07/2017 Hyperphosphatemia 10/28/2015 Hypocalcemia 10/28/2015 Hypokalemia 06/04/2017 Itching 10/28/2015 Metabolic acidosis 10/28/2015 Obesity Peritonitis associated with peritoneal dialysis (HCC) 01/24/2017 Peritonitis due to infected peritoneal dialysis catheter (HCC) 12/08/2018 Secondary hyperparathyroidism (HCC) Uremia 10/28/2015 Past Surgical History Procedure Laterality Date CATHETER REMOVAL N/A 02/04/2019 Procedure: DIALYSIS CATHETER - REMOVAL; Surgeon: Qasim Pederson MD; Location: [facility] MAIN OR ; Service: Vascular; Laterality: N/A; Infected PD catheter removal ESOPHAGOGASTRODUODENOSCOPY N/A 09/10/2017 Procedure: ESOPHAGOGASTRODUODENOSCOPY; Surgeon: Beena Peters MD; Location: [facility] ENDOSCOP [facility]; Service: Gastroenterology; Laterality: N/A; PERITONEAL CATHETER INSERTION N/A 10/28/2015 Procedure: LAPAROSCOPIC - PERITONEAL DIALYSIS CATH INSERTION; Surgeon: Mundo Ramos MD; Lo cation: [facility] MAIN OR; Service: Vascular; Laterality: [...] and is a former smoker. Scheduled Medications cefTAZidime 1 g Intravenous Q24H famotidine 20 mg Oral Daily Or famotidine 20 mg Intravenous Daily heparin (porcine) 5000 unit/0.5mL 5,000 Units Subcutaneous 2 times per day pantoprazole 40 mg Oral QAM AC sevelamer 800 mg Oral TID WC sodium chloride (PF) 10 mL Intravenous Q8H traZODone 100 mg Oral Nightly Continuous Infusions dextrose PRN Medications acetaminophen OR acetaminophen, dextrose, dextrose, dextrose, fentaNYL OR fentaNYL, glucagon, glucagon, HYDROcodone-acetaminophen OR HYDROcodone-acetaminophen, polyethylen e glycol, potassium chloride OR potassium chloride OR potassium chloride, promethazi ne Allergy: No Known Allergies OBJECTIVE Vital Signs: BP 105/56 (BP Location: Right upper arm) | Pulse 74 | Temp 99 F (37.2 C) (Oral) | Re sp 16 | Ht 1.575 m (5' 2") | Wt 81.8 kg (180 lb 6.5 oz) | SpO2 100% | ? No | BMI 33.00 kg/m I&O Detailed Table: I/O last 3 completed shifts: In: 1994.3 [P.O.:1790; I.V.:205.3] Out: - Weight change: -1.469 kg (-3 lb 3.8 oz) Examination: APPEARANCE: The patient is lying in the bed comfortably, answering appropriately VITALS: Reviewed as listed. EYES: +ve pale conjunctiva LUNGS: Clear to auscultation bilaterally. HEART: S1, S2, no pericardial rub noted. ABDOMEN: Full, soft, no tenderness. EXTREMITIES: no pedal edema noted. NEUROLOGIC: No gross focal motor deficit noted, no Asterixis. PSYCH: The patient is alert and oriented x 3, mood and affect looks ok R IJ HD CATHETER IN PLACE LABS: Recent Results (from the past 24 hour(s)) Basic metabolic panel Collection Time: 02/07/19 6:45 AM Result Value Ref Range SODIUM 141 135 - 145 mmol/L POTASSIUM 3.9 3.5 - 4.9 mmol/L CHLORIDE 105 99 - 109 mmol/L CO2 28 23 - 32 mmol/L ANION GAP AGAP 12 5 - 20 mmol/L GLUCOSE 95 65 - 99 mg/dL BUN 116 (H) 8 - 25 mg/dL CREATININE 9.48 (H) 0.50 - 1.00 mg/dL BUN/CREAT 12 CALCIUM 7.8 (L) 8.5 - 10.5 mg/dL EGFR 5 (L) >60 mL/min/1.73m2 CBC W/Auto Diff (Reflex to Manual) Collection Time: 02/07/19 6:45 AM Result Value Ref Range WBC 13.89 (H) 3.80 - 11.00 K/uL RBC 3.16 (L) 3.70 - 5.10 M/uL HGB 9.4 (L) 11.3 - 15.5 g/dL HCT 29.8 (L) 34.0 - 46.0 % MCV 94.3 80.0 - 100.0 fl MCH 29.7 27.0 - 34.0 pg MCHC 31.5 (L) 32.0 - 35.5 g/dL RDW SD 50.3 37 - 53 fl PLT 238 150 - 400 K/uL MPV 8.2 fl DIFF TYPE AUTOMATED NEUTROPHILS 78.50 % LYMPHOCYTES 13.31 % MONOCYTES 5.51 % EOSINOPHILS 2.02 % BASOPHILS 0.66 % NEUTROPHILS ABS 10.90 (H) 1.90 - 7.40 K/uL LYMPHOCYTES ABS 1.85 1.00 - 3.90 K/uL MONOCYTES ABS 0.77 0.00 - 0.80 K/uL EOSINOPHILS ABS 0.28 0.00 - 0.50 K/uL BASOPHILS ABS 0.09 0.00 - 0.10 K/uL MORPHOLOGY RBC AND PLT MORPHOLOGY APPEAR NORMAL Diff Comment SLIDE SCANNED, AGREES WITH AUTOMATED RESULTS. Imaging Ir Dialysis Tunneled Cath Insert Result Date: 2019 DATE OF PROCEDURE: 2019 SURGEON: Qasim Pederson MD PREOPERATIVE DIAGNOSIS: 1. End stage renal disease requiring hemodialysis POSTOPERATIVE DIAGNOSIS: Same PROCEDURES: 1.Percutaneou s access of right internal jugular vein under ultrasound guidance and placement of tunneled hemodialysis catheter SEDATION:?Moderate conscious sedation was administered during the proc edure by the physician and nursing staff with continuous hemodynamic monitoring throughout t he procedure.?Total Sedation: Versed: 2mg; Fentanyl: 100mcg; Total Sedation Time: 22minutes ANTIBIOTIC PROPHYLAXIS: none FLUOROSCOPY TIME: 0.1min, Dose 1mGy EBL: Minimal COMPLICATIONS: None INDICATIONS: This is a 39 y.o. female patient with end stage renal disease requiring hemodialysis.The patient has been evaluated by his auto overhauler who determined that he is a suitable candidate to undergo hemodialysis. The patient has received appropriate training re garding hemodialysis. The patient understands the benefit and purpose of the planned procedu re of tunneled hemodialysis catheter insertion is to allow the patient to receive hemodialys is while waiting for a rat exterminator hemodialysis access such as arteriovenous venous fistula or graft to be created. The patient also understands the risks and complications of this proce dure which include bleeding, vessel perforation, vessel dissection, nerve and arterial injur y, and pneumothorax. The patient has accepted these benefits and risks and agreed to undergo the planned procedure. PROCEDURE IN DETAIL: The patient was taken to the operating room and placed on the table in the supine position. The patient's right neck and chest region was p repped sterilely and then draped in a standard fashion. The patient was given local and cons cious sedation anesthesia. Appropriate time out was performed whereby the patient and site o f surgery were identified. Percutaneous access of the right internal jugular vein was obtain ed under ultrasound guidance. A 0.035' guidewire was placed in the right internal jugular ve in and confirmed under fluoroscopy guidance. The skin tract was dilated with serial dilators . A peel away sheath was inserted over the guidewire. A hemodialysis catheter was tunneled u nder the skin from the chest to the neck. Next the guidewire and inner dilator of the peel a way sheath was removed. The tunneled hemodialysis catheter was placed into the internal jugu lar vein over a peel away sheath. The catheter tip was positioned in the atrio caval junctio n and the position was confirmed with fluoroscopy. Heparinized saline solution was injected in the double lumen tunneled hemodialysis catheter and the catheter was securely anchored to the skin using 3-0 nylon sutures. Standard dressing was applied over the tunneled hemodialy sis catheter in the usual fashion. Hemostasis was achieved without complications. The patien t tolerated the procedure well and suffered no complications. I was present throughout the e ntire procedure. Us Abdomen Limited Result Date: 02/01/2019 ULTRASOUND ABDOMEN, LIMITED CLINICAL INFORMATION: Right upper quadrant pain since yesterday COMPARISON: US PELVIS WITH ENDOVAGINAL (02/01/2019); CT ABDOMEN AND PELVIS WITHOUT AND WITH CONTRAST AND ANGIOGRAPHY (01/04/2019); ULTRASOUND PELVIS (12/24/2018); PROCEDURE: Evaluation o f the gallbladder, if present, common bile duct, liver, and right kidney. FINDINGS: Liver: N o focal liver lesion. Minimal ascitic fluid about the liver. Gallbladder/Bile Duct: No gall stones or gallbladder wall thickening. No intrahepatic or extrahepatic biliary dilatation. C ommon bile duct 3.6 mm. Right kidney: 7.1 cm. No solid renal mass, hydronephrosis or definit elizabeth calculi. IVC normal. No ascites. 1. Gallbladder and common bile duct are normal. 2. No acute abnormality of the liver. 3. No hydronephrosis of the right kidney. Signed by: Omar Cervantes Sign Date/Time: 02/01/2019 4:36 PM Ir Guidance Vascular Access Us Result Date: 2019 This Point of Care (POC) ultrasound image has been reviewed and interpreted by the physicia n identified as the performing physician in the associated interpretation and report. Us Upper Extremity Dialysis Mapping Bilateral Result Date: 2019 UPPER EXTREMITY VEIN MAPPING CLINICAL INFORMATION: AV access creation COMPARISON: None PROC EDURE: Duplex evaluation of the veins of the upper extremities. All measurements in mm. Top number is depth of vein. Bottom number is diameter of vein. Measurements performed with tour niquet. FINDINGS: RIGHT ARM CEPHALIC VEIN (measurements given as diameter / depth in mm) Ins ertion: 2.9 mm/21 mm Upper Humerus: 3.7 mm/15.6 mm Mid Humerus: 2.9 mm/11.3 mm Elbow: 2.1 mm /10 mm Upper Forearm: 2.2 mm/8.9 mm Mid Forearm: 2.4 mm/8.2 mm Wrist: 1.5 mm/3.9 mm BASILIC VEIN (measurements given as diameter / depth in mm) Upper Humerus: Not measured. Mid Humerus : 3.7 mm/15.3 mm Elbow: 4.6 mm/14.2 mm Upper Forearm: 4.1 mm/3.5 mm Mid Forearm: 4.3 mm/2.8 mm Wrist: Not visualized. BRACHIAL VEIN (measurements given as diameter in mm) Upper Humerus : 3.5 mm Mid Humerus: 3.6 mm Elbow: 3.4 mm AXILLARY VEIN: 8.2 mm BRACHIAL ARTERY DISTAL: 3.8 mm RADIAL ARTERY WRIST: 1.7 mm ULNAR ARTERY WRIST: 2.2 mm LEFT ARM CEPHALIC VEIN (measureme nts given as diameter / depth in mm) Insertion: 3.2 mm/17.4 mm Upper Humerus: 3.5 mm/7.4 mm Mid Humerus: 3.6 mm/5.9 mm Elbow: 2.3 mm/3.9 mm Upper Forearm: 3.8 mm/5.4 mm Mid Forearm: 3. 8 mm/7.1 mm Wrist: 2.9 mm/5.0 mm BASILIC VEIN (measurements given as diameter / depth in mm) Upper Humerus: 3.2 mm/16.1 mm Mid Humerus: 3.2 mm/10.8 mm Elbow: 3.0 mm/6.8 mm Upper Forear m: 2.9 mm/4.3 mm Mid Forearm: 1.5 mm/3.2 mm Wrist: Not visualized. BRACHIAL VEIN (measuremen ts given as diameter in mm) Upper Humerus: 3.0 mm Mid Humerus: 3.2 mm Elbow: 4.1 mm AXILLARY VEIN: 5.5 mm BRACHIAL ARTERY DISTAL: 4.2 mm RADIAL ARTERY WRIST: 2.0 mm ULNAR ARTERY WRIST: 2.7 mm 1. No evidence of superficial or deep venous thrombosis in the upper extremity veins. 2. Tr iphasic waveform noted in all arteries. 3. Bilateral upper extremity vein mapping measuremen ts as above. Signed by: DO Plascencia Edward Sign Date/Time: 2019 11:54 AM Us Shuttlecock Feather Trimmer Pelvis Transabd/endovaginal Result Date: 02/01/2019 ULTRASOUND PELVIS, TRANSABDOMINAL AND TRANSVAGINAL CLINICAL INFORMATION: Right ovarian mass . UNK LMP. COMPARISON: CT ABDOMEN AND PELVIS WITHOUT AND WITH CONTRAST AND ANGIOGRAPHY (01/04); ULTRASOUND PELVIS (12/24/2018); ULTRASOUND, TRANSVAGINAL ONLY (12/24/2018); PROCEDURE: Transabdominal and transvaginal ultrasound evaluation of the uterus, endometrium, adnexa an d ovaries. FINDINGS: Transabdominal: Limited evaluation due to patient body habitus. Uterus: 7.4 x 3.3 x 4.1 cm. Uterus grossly unremarkable. Endometrium difficult to define. Moderat e free fluid adjacent to the uterus. Transvaginal: Uterus normal. Endometrium is homogeneous . Endometrium: 7.2 mm. Nabothian cysts measure up to 1.3 cm in the cervix. Right ovary: 5.4 x 3.9 x 4.2 cm. Hyperechoic appearance of the right ovary with multiple complex septated cy stic structures in the right ovary measuring up to 2.8 cm. Color flow and spectral Doppler evaluation shows arterial and venous flow throughout the right ovary with hyperemia. Left ov elen: 3.7 x 2.7 x 2.4 cm. Thinly septated cyst measures 2.7 x 2.1 x 2.7 cm. Color flow and s pectral Doppler evaluation unremarkable. Moderate anechoic fluid. The peritoneal dialysis c atheter in the anterior pelvis noted on CT is not defined by ultrasound. 1. Moderate free fluid in the pelvis likely related to known peritoneal dialysis catheter. Correlate clinically. 2. Hyperechoic enlarged right ovary with hyperemia and complex cystic structures. This is abnormal, and similar in size compared with 12/24/2018. This raises co ncern for ovarian mass. Enhanced MRI may help in further evaluation. 3. Complex cyst in the left ovary. Signed by: Cedric Smalls Sign Date/Time: 02/01/2019 11:09 AM PROBLEM LIST Principal Problem: SIRS (systemic inflammatory response syndrome) (HCC) Active Problems: Gastroenteritis End-stage renal disease (HCC) Prolonged Q-T interval on ECG Cyst of right ovary ASSESSMENT & PLAN ESRD ON HD No need for hd/uf today Assess daily for need for hd & uf PD catheter removed 02/04/19, Got HD catheter placed 02/05/19 Plan for hd/uf in am, informed hd rn Monique Fluid restriction 1.2 litres/24 hours Strict I & O Daily RFP Renal diet Daily weights will help with subsequent hd with uf Dose all meds per protocol for ESRD on hd ANEMIA in ESRD stable EPOGEN TO KEEP HGB 10-11 Lab Results Component Value Date HGB 9.4 (L) 02/07/2019 HGB 9.0 (L) 02/06/2019 HGB 9.8 (L) 2019 FERRITIN 56 10/27/2015 LABIRON 12 (L) 10/27/2015 HYPERTENSION Controlled WATCH BP CLOSELY DURING HOSPITALIZATION LOW NA DIET Will adjust BP meds according to BP readings BP Readings from Last 3 Encounters: 02/07/19 105/56 01/09/19 105/55 12/27/18 104/63 HYPERPHOSPHATEMIA LOW P DIET PO4 BINDERS, continue Renvela with meals Lab Results Component Value Date PHOS 6.0 (H) 02/04/2019 PHOS 5.6 (H) 02/03/2019 PHOS 5.4 (H) 02/01/2019 HYPOALBUMINEMIA INCREASE PROTEIN INTAKE Lab Results Component Value Date ALB 2.9 (L) 02/04/2019 ALB 1.8 (L) 02/03/2019 ALB 2.0 (L) 02/02/2019 CASE DISCUSSED IN DETAIL WITH PATIENT/ care team, ANSWERS ALL QUESTIONS IN DETAIL, VERBALIZ ES UNDERSTANDING LINDEN ALONZO MD 02/07/2019 JUAN F QUAEMPTS Seen earlier and charting completed later Dictation software, bLife, used which may contain error for similar sounding words even af ter review. Personal communication requested for any clarification. Portions of my notes may have been carried over for continuity of care. Esteban Yoder MD - 1:13 PM PDT Progress Notes by Esteban العلي MD at 02/07/19 1313 Author: Esteban العلي MD Service: Internal Medicine Author Type: Physician Filed: 02/07/19 8544 Date of Service: 02/07/19 1313 Status: Signed Power Wood Sawyer: Esteban العلي MD (Physician) [facility]: Hospitalist Progress Note Hospital Day: LOS: 6 days SUBJECTIVE Feels Nausea, but better with meds No pain Patient Summary: Ms. Oconnor is a 38 yr old man with lady with HTN, GERD with esophagitis, hx of diverticuli tis and ESRD on CAPD, with recurrent culture negative bacterial peritonitis x3 presented to the ED on 02/01/19 at [facility] for abdominal pain, nausea, vomiting and diarrhea, transferred to [facility] for further management. She was afebrile but hypotensive on presentation. Her labs showed leukocytosis with bandemia. PD fluid analysis however showed w bc of 622 with 48% segs. She had elevated procalcitonin. ID has been consulted and currently on IP antibiotic. Removal of PD catheter was discussed with the patient. She was initially upset but later on agreed. Patient was referred to vascular surgery and had her PD cath rem dom on 02/04/19. She had a tunneled catheter placed on 02/05/19. Patient has been accepted to continue HD at [facility] on a MWF schedule. Scheduled Medications cefTAZidime 1 g Intravenous Q24H famotidine 20 mg Oral Daily Or famotidine 20 mg Intravenous Daily heparin (porcine) 5000 unit/0.5mL 5,000 Units Subcutaneous 2 times per day pantoprazole 40 mg Oral QAM AC sevelamer 800 mg Oral TID WC sodium chloride (PF) 10 mL Intravenous Q8H traZODone 100 mg Oral Nightly Continuous Infusions dextrose PRN Medications acetaminophen OR acetaminophen, dextrose, dextrose, dextrose, fentaNYL OR fentaNYL, glucagon, glucagon, HYDROcodone-acetaminophen OR HYDROcodone-acetaminophen, polyethylen e glycol, potassium chloride OR potassium chloride OR potassium chloride, promethazi ne OBJECTIVE Vital Signs: BP 104/62 (BP Location: Right upper arm) | Pulse 74 | Temp 98.8 F (37.1 C) (Oral) | Resp 16 | Ht 1.575 m (5' 2") | Wt 81.8 kg (180 lb 6.5 oz) | SpO2 100% | ? N o | BMI 33.00 kg/m Patient Vitals for the past 24 hrs: BP Temp Temp src Pulse Resp SpO2 Weight 02/07/19 1220 104/62 98.8 F (37.1 C) Oral 74 16 100 % - 02/07/19 0826 111/67 98.8 F (37.1 C) Oral 79 16 99 % - 02/07/19 0510 105/59 98 F (36.7 C) Oral 78 16 99 % 81.8 kg (180 lb 6.5 oz) 02/07/19 0022 110/58 98.7 F (37.1 C) Oral 88 16 - - 02/06/19 1956 99/66 99.2 F (37.3 C) Oral 83 18 99 % - 02/06/19 1622 97/54 99.2 F (37.3 C) Oral 79 20 100 % - Intake/Output Summary (Last 24 hours) at 02/07/19 1313 Last data filed at 02/07/19 1241 Gross per 24 hour Intake 855.32 ml Output 0 ml Net 855.32 ml Physical Exam: Constitutional: pleasant female in bed with family . Appears IN NO DISTRESS IN BED, . HEENT: Neck supple, no JVD, non icteric sclera. Cardiovascular: Normal rate, regular rhythm, normal heart sounds with S1 and S2, Exam re veals no gallop and no friction rub. Pulmonary/Chest: Effort normal and breath sounds normal. No stridor. No respiratory distres s. no wheezes. no rales. exhibits no tenderness. Abdominal: Soft. Bowel sounds are normal. exhibits mild distension and no palpable mass. T here is mild mid abd tenderness. There is no rebound and no guarding. Extremeties/Musculoskeletal: Normal range of motion.exhibits no tenderness. exhibits no ed maico. Neurological: Alert and oriented to person, place, and time. Perrla Skin: Skin is warm and dry. PALE DATA Recent Labs Lab 02/07/19 0645 02/06/19 0519 02/05/19 0915 WBC 13.89* 13.68* 14.38* RBC 3.16* 3.04* 3.26* HGB 9.4* 9.0* 9.8* HCT 29.8* 27.8* 29.8* MCV 94.3 91.4 91.6 MCH 29.7 29.6 30.1 MCHC 31.5* 32.4 32.8 RDW 50.3 46.8 49.0 PLT 238 250 298 MPV 8.2 8.2 7.9 DIFFTYPE AUTOMATED MANUAL AUTOMATED Recent Labs Lab 02/07/19 0645 02/06/19 0519 02/05/19 0915 02/03/19 0600 02/02/19 0540 02/01/19 0318 NA 141 139 141 < > 139 140 141 K 3.9 3.9 3.9 < > 3.0* 3.4* 3.6 CL 105 102 107 < > 98* 101 103 CO2 28 27 24 < > 27 25 27 BUN 116* 16 35* < > 30* 29* 25 CREATININE 9.48* 8.0* 13.50* < > 12.8* 12.6* 11.53* PROT -- -- -- -- 5.5* 6.2* 5.7* BILITOT -- -- -- -- 0.2 0.3 <0.2 ALT -- -- -- -- 12 13 <7* AST -- -- -- -- 7* 12 11 GLUF 95 73 89 < > 91 100* 94 < > = values in this interval not displayed. Recent Labs Lab 02/01/19 1208 02/01/19 0718 TROPONINI <0.006 <0.006 Recent Labs Lab 02/04/19 0647 02/03/19 0600 02/01/19 0318 PHOS 6.0* 5.6* 5.4* Recent Labs Lab 02/03/19 0600 02/01/19 0318 MG 3.2* 3.0* Invalid input(s): ABG No results for input(s): CALCIUM in the last 168 hours. No results for input(s): APTT, INR, PTT in the last 168 hours. Us Abdomen Limited Result Date: 02/01/2019 1. Gallbladder and common bile duct are normal. 2. No acute abnormality of the liver. 3. No hydronephrosis of the right kidney. Signed by: Omar Cervantes Sign Date/Time: 02/01/2019 4:36 PM Us Upper Extremity Dialysis Mapping Bilateral Result Date: 2019 1. No evidence of superficial or deep venous thrombosis in the upper extremity veins. 2. Tr iphasic waveform noted in all arteries. 3. Bilateral upper extremity vein mapping measuremen ts as above. Signed by: DO Plascencia Edward Sign Date/Time: 2019 11:54 AM Us Shuttlecock Feather Trimmer Pelvis Transabd/endovaginal Result Date: 02/01/2019 1. Moderate free fluid in the pelvis likely related to known peritoneal dialysis catheter. Correlate clinically. 2. Hyperechoic enlarged right ovary with hyperemia and complex cystic structures. This is abnormal, and similar in size compared with 12/24/2018. This raises co ncern for ovarian mass. Enhanced MRI may help in further evaluation. 3. Complex cyst in the left ovary. Signed by: Cedric Smalls Sign Date/Time: 02/01/2019 11:09 AM PROBLEM LIST Principal Problem: SIRS (systemic inflammatory response syndrome) (HCC) Active Problems: Gastroenteritis End-stage renal disease (HCC) Prolonged Q-T interval on ECG Cyst of right ovary ASSESSMENT / PLAN PD peritonitis PD fluid culture and blood cultures remain with no growth ID following, on iv ceftazidime daily for now. Off vanco. Removal of PD catheter 02/04/19 ESRD Started HD per renal Chair time noted. MWF at [facility]. S/p tunneled catheter placement 02/05/19 Continue P binder Hypokalemia Defer to nephrology HTN Noted BP readings, acceptable Off meds Anemia of ESRD Defer to nephrology regarding EPO Prolonged QTc Correct hypokalemia Check Mg DVT prophylaxis with heparin The plan has explained in detail to the patient , all questions were answered.All data was reviewed. I explained radiology and lab findings and plan of care to patient and relatives and they v erbalized understanding and agreement and had no more questions for me after my interaction with them. More than 35 minutes spent directly face to face with patient and more than 65% s pent for physical examination and talking with patient and relatives at bedside, on chart review, coordinating care with other providers, formulating a plan of care and management as well as Computerized Physician [employer] Coach. Disposition: Home Code Status: Full Code Esteban العلي MD 02/07/2019 1:13 PM onversion Transactio n, Provider Unknown - 02/07/2019 3:44 AM PDT Nurse Progress Note by Marixa Terrazas RN at 02/07/19 6440 Author: Marixa Terrazas RN Service: (none) Author Type: Registered Nurse Filed: 02/07/19 0613 Date of Service: 02/07/19 0344 Status: Signed Power Wood Sawyer: Marixa Terrazas RN (Registered Nurse) BP's soft, pt does have some dizziness when standing up, all other VSS. Medicated for pain with norco x1, and fentanyl x2 as pt refused any more norco and only wanted fentanyl. Pt is still having slight nausea but has not required any anti-emetics. Ate a fruit cup and tole rated it well. No other changes from shift assessment. End of shift review and 24 hour julio t check completed. Marixa Terrazas RN Linden Kincaid MD - 02/06/2019 6:23 PM PDTFormatting of this note might be different from the orig inal. Progress Notes by Linden Alonzo MD at 02/06/191822 Author: Linden Alonzo MD Service: Nephrology Author Type: Physician Filed: 02/08/19 1738 Date of Service: 02/06/191822 Status: Signed Power Wood Sawyer: Linden Alonzo MD (Physician) [facility]: NEPHROLOGY Progress Note Ramona Oconnor 39 y.o. 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 GERD (gastroesophageal reflux disease) Hypercalcemia 09/07/2017 Hyperphosphatemia 10/28/2015 Hypocalcemia 10/28/2015 Hypokalemia 06/04/2017 Itching 10/28/2015 Metabolic acidosis 10/28/2015 Obesity Peritonitis associated with peritoneal dialysis (HCC) 01/24/2017 Peritonitis due to infected peritoneal dialysis catheter (HCC) 12/08/2018 Secondary hyperparathyroidism (HCC) Uremia 10/28/2015 Past Surgical History Procedure Laterality Date CATHETER REMOVAL N/A 02/04/2019 Procedure: DIALYSIS CATHETER - REMOVAL; Surgeon: Qasim Pederson MD; Location: [facility] MAIN OR ; Service: Vascular; Laterality: N/A; Infected PD catheter removal ESOPHAGOGASTRODUODENOSCOPY N/A 09/10/2017 Procedure: ESOPHAGOGASTRODUODENOSCOPY; Surgeon: Beena Peters MD; Location: [facility] ENDOSCOP Y; Service: Gastroenterology; Laterality: N/A; PERITONEAL CATHETER INSERTION N/A 10/28/2015 Procedure: LAPAROSCOPIC - PERITONEAL DIALYSIS CATH INSERTION; Surgeon: Mundo Ramos MD; Lo cation: [facility] MAIN OR; Service: Vascular; Laterality: [...] and is a former smoker. Scheduled Medications cefTAZidime 1 g Intravenous Q24H famotidine 20 mg Oral Daily Or famotidine 20 mg Intravenous Daily heparin (porcine) 5000 unit/0.5mL 5,000 Units Subcutaneous 2 times per day pantoprazole 40 mg Oral QAM AC scopolamine 1 patch Transdermal Once sevelamer 800 mg Oral TID WC sodium chloride (PF) 10 mL Intravenous Q8H traZODone 100 mg Oral Nightly Continuous Infusions dextrose PRN Medications acetaminophen OR acetaminophen, dextrose, dextrose, dextrose, fentaNYL OR fentaNYL, glucagon, glucagon, HYDROcodone-acetaminophen OR HYDROcodone-acetaminophen, polyethylen e glycol, potassium chloride OR potassium chloride OR potassium chloride, promethazi ne Allergy: No Known Allergies OBJECTIVE Vital Signs: BP 97/54 (BP Location: Right upper arm) | Pulse 79 | Temp 99.2 F (37.3 C) (Oral) | R enmanuel 20 | Ht 1.575 m (5' 2") | Wt 83.6 kg (184 lb 6.4 oz) | SpO2 100% | ? No | BMI 33.73 kg/m I&O Detailed Table: I/O last 3 completed shifts: In: 2991 [P.O.:400; I.V.:991; Other:1600] Out: 2100 [Other:2100] Weight change: Examination: APPEARANCE: The patient is lying in the bed comfortably, answering appropriately VITALS: Reviewed as listed. EYES: +ve pale conjunctiva LUNGS: Clear to auscultation bilaterally. HEART: S1, S2, no pericardial rub noted. ABDOMEN: Full, soft, no tenderness. EXTREMITIES: no pedal edema noted. NEUROLOGIC: No gross focal motor deficit noted, no Asterixis. PSYCH: The patient is alert and oriented x 3, mood and affect looks ok BACK: no CVA tenderness noted R IJ HD catheter in place LABS: Recent Results (from the past 24 hour(s)) CBC w/auto diff (reflex to manual) Collection Time: 02/06/19 5:19 AM Result Value Ref Range WBC 13.68 (H) 3.80 - 11.00 K/uL RBC 3.04 (L) 3.70 - 5.10 M/uL HGB 9.0 (L) 11.3 - 15.5 g/dL HCT 27.8 (L) 34.0 - 46.0 % MCV 91.4 80.0 - 100.0 fl MCH 29.6 27.0 - 34.0 pg MCHC 32.4 32.0 - 35.5 g/dL RDW SD 46.8 37 - 53 fl PLT 250 150 - 400 K/uL MPV 8.2 fl DIFF TYPE MANUAL Neutrophils Manual 76 % Bands 3 % Lymphocytes Manual 13 % Monocytes Manual 7 % Eosinophils Manual 1 % Neutrophils Absolute 10.39 (H) 1.90 - 7.40 K/uL Bands Manual 0.41 (H) 0.00 - 0.20 K/uL Lymphocytes Absolute 1.78 1.00 - 3.90 K/uL Monocytes Absolute 0.96 (H) 0.00 - 0.80 K/uL Eosinophils Absolute 0.14 0.00 - 0.50 K/uL MORPHOLOGY RBC AND PLT MORPHOLOGY APPEAR NORMAL Basic metabolic panel Collection Time: 02/06/19 5:19 AM Result Value Ref Range SODIUM 139 135 - 145 mmol/L POTASSIUM 3.9 3.5 - 4.9 mmol/L CHLORIDE 102 99 - 109 mmol/L CO2 27 23 - 32 mmol/L ANION GAP AGAP 14 5 - 20 mmol/L GLUCOSE 73 65 - 99 mg/dL BUN 16 8 - 25 mg/dL CREATININE 8.0 (H) 0.50 - 1.00 mg/dL BUN/CREAT 2 CALCIUM 7.4 (L) 8.5 - 10.5 mg/dL EGFR 6 (L) >60 mL/min/1.73m2 Imaging Ir Dialysis Tunneled Cath Insert Result Date: 2019 DATE OF PROCEDURE: 2019 SURGEON: Qasim Pederson MD PREOPERATIVE DIAGNOSIS: 1. End stage renal disease requiring hemodialysis POSTOPERATIVE DIAGNOSIS: Same PROCEDURES: 1.Percutaneou s access of right internal jugular vein under ultrasound guidance and placement of tunneled hemodialysis catheter SEDATION:?Moderate conscious sedation was administered during the proc edure by the physician and nursing staff with continuous hemodynamic monitoring throughout t he procedure.?Total Sedation: Versed: 2mg; Fentanyl: 100mcg; Total Sedation Time: 22minutes ANTIBIOTIC PROPHYLAXIS: none FLUOROSCOPY TIME: 0.1min, Dose 1mGy EBL: Minimal COMPLICATIONS: None INDICATIONS: This is a 39 y.o. female patient with end stage renal disease requiring hemodialysis.The patient has been evaluated by his auto overhauler who determined that he is a suitable candidate to undergo hemodialysis. The patient has received appropriate training re garding hemodialysis. The patient understands the benefit and purpose of the planned procedu re of tunneled hemodialysis catheter insertion is to allow the patient to receive hemodialys is while waiting for a residential hemodialysis access such as arteriovenous venous fistula or graft to be created. The patient also understands the risks and complications of this proce dure which include bleeding, vessel perforation, vessel dissection, nerve and arterial injur y, and pneumothorax. The patient has accepted these benefits and risks and agreed to undergo the planned procedure. PROCEDURE IN DETAIL: The patient was taken to the operating room and placed on the table in the supine position. The patient's right neck and chest region was p repped sterilely and then draped in a standard fashion. The patient was given local and cons cious sedation anesthesia. Appropriate time out was performed whereby the patient and site o f surgery were identified. Percutaneous access of the right internal jugular vein was obtain ed under ultrasound guidance. A 0.035' guidewire was placed in the right internal jugular ve in and confirmed under fluoroscopy guidance. The skin tract was dilated with serial dilators . A peel away sheath was inserted over the guidewire. A hemodialysis catheter was tunneled u nder the skin from the chest to the neck. Next the guidewire and inner dilator of the peel a way sheath was removed. The tunneled hemodialysis catheter was placed into the internal jugu lar vein over a peel away sheath. The catheter tip was positioned in the atrio caval junctio n and the position was confirmed with fluoroscopy. Heparinized saline solution was injected in the double lumen tunneled hemodialysis catheter and the catheter was securely anchored to the skin using 3-0 nylon sutures. Standard dressing was applied over the tunneled hemodialy sis catheter in the usual fashion. Hemostasis was achieved without complications. The patien t tolerated the procedure well and suffered no complications. I was present throughout the e ntire procedure. Us Abdomen Limited Result Date: 02/01/2019 ULTRASOUND ABDOMEN, LIMITED CLINICAL INFORMATION: Right upper quadrant pain since yesterday COMPARISON: US PELVIS WITH ENDOVAGINAL (02/01/2019); CT ABDOMEN AND PELVIS WITHOUT AND WITH CONTRAST AND ANGIOGRAPHY (01/04/2019); ULTRASOUND PELVIS (12/24/2018); PROCEDURE: Evaluation o f the gallbladder, if present, common bile duct, liver, and right kidney. FINDINGS: Liver: N o focal liver lesion. Minimal ascitic fluid about the liver. Gallbladder/Bile Duct: No gall stones or gallbladder wall thickening. No intrahepatic or extrahepatic biliary dilatation. C ommon bile duct 3.6 mm. Right kidney: 7.1 cm. No solid renal mass, hydronephrosis or definit elizabeth calculi. IVC normal. No ascites. 1. Gallbladder and common bile duct are normal. 2. No acute abnormality of the liver. 3. No hydronephrosis of the right kidney. Signed by: Omar Cervantes Sign Date/Time: 02/01/2019 4:36 PM [facility] Us Result Date: 2019 This Point of Care (POC) ultrasound image has been reviewed and interpreted by the physicia n identified as the performing physician in the associated interpretation and report. Us Upper Extremity Dialysis Mapping Bilateral Result Date: 2019 UPPER EXTREMITY VEIN MAPPING CLINICAL INFORMATION: AV access creation COMPARISON: None PROC EDURE: Duplex evaluation of the veins of the upper extremities. All measurements in mm. Top number is depth of vein. Bottom number is diameter of vein. Measurements performed with tour niquet. FINDINGS: RIGHT ARM CEPHALIC VEIN (measurements given as diameter / depth in mm) Ins ertion: 2.9 mm/21 mm Upper Humerus: 3.7 mm/15.6 mm Mid Humerus: 2.9 mm/11.3 mm Elbow: 2.1 mm /10 mm Upper Forearm: 2.2 mm/8.9 mm Mid Forearm: 2.4 mm/8.2 mm Wrist: 1.5 mm/3.9 mm BASILIC VEIN (measurements given as diameter / depth in mm) Upper Humerus: Not measured. Mid Humerus : 3.7 mm/15.3 mm Elbow: 4.6 mm/14.2 mm Upper Forearm: 4.1 mm/3.5 mm Mid Forearm: 4.3 mm/2.8 mm Wrist: Not visualized. BRACHIAL VEIN (measurements given as diameter in mm) Upper Humerus : 3.5 mm Mid Humerus: 3.6 mm Elbow: 3.4 mm AXILLARY VEIN: 8.2 mm BRACHIAL ARTERY DISTAL: 3.8 mm RADIAL ARTERY WRIST: 1.7 mm ULNAR ARTERY WRIST: 2.2 mm LEFT ARM CEPHALIC VEIN (measureme nts given as diameter / depth in mm) Insertion: 3.2 mm/17.4 mm Upper Humerus: 3.5 mm/7.4 mm Mid Humerus: 3.6 mm/5.9 mm Elbow: 2.3 mm/3.9 mm Upper Forearm: 3.8 mm/5.4 mm Mid Forearm: 3. 8 mm/7.1 mm Wrist: 2.9 mm/5.0 mm BASILIC VEIN (measurements given as diameter / depth in mm) Upper Humerus: 3.2 mm/16.1 mm Mid Humerus: 3.2 mm/10.8 mm Elbow: 3.0 mm/6.8 mm Upper Forear m: 2.9 mm/4.3 mm Mid Forearm: 1.5 mm/3.2 mm Wrist: Not visualized. BRACHIAL VEIN (measuremen ts given as diameter in mm) Upper Humerus: 3.0 mm Mid Humerus: 3.2 mm Elbow: 4.1 mm AXILLARY VEIN: 5.5 mm BRACHIAL ARTERY DISTAL: 4.2 mm RADIAL ARTERY WRIST: 2.0 mm ULNAR ARTERY WRIST: 2.7 mm 1. No evidence of superficial or deep venous thrombosis in the upper extremity veins. 2. Tr iphasic waveform noted in all arteries. 3. Bilateral upper extremity vein mapping measuremen ts as above. Signed by: DO Plascencia Edward Sign Date/Time: 2019 11:54 AM Us Shuttlecock Feather Trimmer Pelvis Transabd/endovaginal Result Date: 02/01/2019 ULTRASOUND PELVIS, TRANSABDOMINAL AND TRANSVAGINAL CLINICAL INFORMATION: Right ovarian mass . UNK LMP. COMPARISON: CT ABDOMEN AND PELVIS WITHOUT AND WITH CONTRAST AND ANGIOGRAPHY (01/04); ULTRASOUND PELVIS (12/24/2018); ULTRASOUND, TRANSVAGINAL ONLY (12/24/2018); PROCEDURE: Transabdominal and transvaginal ultrasound evaluation of the uterus, endometrium, adnexa an d ovaries. FINDINGS: Transabdominal: Limited evaluation due to patient body habitus. Uterus: 7.4 x 3.3 x 4.1 cm. Uterus grossly unremarkable. Endometrium difficult to define. Moderat e free fluid adjacent to the uterus. Transvaginal: Uterus normal. Endometrium is homogeneous . Endometrium: 7.2 mm. Nabothian cysts measure up to 1.3 cm in the cervix. Right ovary: 5.4 x 3.9 x 4.2 cm. Hyperechoic appearance of the right ovary with multiple complex septated cy stic structures in the right ovary measuring up to 2.8 cm. Color flow and spectral Doppler evaluation shows arterial and venous flow throughout the right ovary with hyperemia. Left ov elen: 3.7 x 2.7 x 2.4 cm. Thinly septated cyst measures 2.7 x 2.1 x 2.7 cm. Color flow and s pectral Doppler evaluation unremarkable. Moderate anechoic fluid. The peritoneal dialysis c atheter in the anterior pelvis noted on CT is not defined by ultrasound. 1. Moderate free fluid in the pelvis likely related to known peritoneal dialysis catheter. Correlate clinically. 2. Hyperechoic enlarged right ovary with hyperemia and complex cystic structures. This is abnormal, and similar in size compared with 12/24/2018. This raises co ncern for ovarian mass. Enhanced MRI may help in further evaluation. 3. Complex cyst in the left ovary. Signed by: Cedric Smalls Sign Date/Time: 02/01/2019 11:09 AM PROBLEM LIST Principal Problem: SIRS (systemic inflammatory response syndrome) (HCC) Active Problems: Gastroenteritis End-stage renal disease (HCC) Prolonged Q-T interval on ECG Cyst of right ovary ASSESSMENT & PLAN ESRD ON HD No need for hd/uf today Assess daily for need for hd & uf Orders in the chart Fluid restriction 1.2 litres/24 hours Strict I & O Daily RFP Renal diet Daily weights will help with subsequent hd with uf Dose all meds per protocol for ESRD on hd ANEMIA in ESRD worsened EPOGEN TO KEEP HGB 10-11 Lab Results Component Value Date HGB 9.0 (L) 02/06/2019 HGB 9.8 (L) 2019 HGB 9.8 (L) 02/04/2019 FERRITIN 56 10/27/2015 LABIRON 12 (L) 10/27/2015 HYPERTENSION Labile on low side asymptomatic WATCH BP CLOSELY DURING HOSPITALIZATION LOW NA DIET Will adjust BP meds according to BP readings BP Readings from Last 3 Encounters: 02/06/19 97/54 01/09/19 105/55 12/27/18 104/63 HYPERPHOSPHATEMIA LOW P DIET PO4 BINDERS, continue Renvela with meals Lab Results Component Value Date PHOS 6.0 (H) 02/04/2019 PHOS 5.6 (H) 02/03/2019 PHOS 5.4 (H) 02/01/2019 HYPOALBUMINEMIA INCREASE PROTEIN INTAKE Lab Results Component Value Date ALB 2.9 (L) 02/04/2019 ALB 1.8 (L) 02/03/2019 ALB 2.0 (L) 02/02/2019 CASE DISCUSSED IN DETAIL WITH PATIENT/ care team, ANSWERS ALL QUESTIONS IN DETAIL, VERBALIZ ES UNDERSTANDING LINDEN ALONZO MD 02/06/2019 JUAN F QUAEMPTS Seen earlier and charting completed later Dictation software, bLife, used which may contain error for similar sounding words even af ter review. Personal communication requested for any clarification. Portions of my notes may have been carried over for continuity of care. Esteban Yoder MD - 5:53 PM PDT Progress Notes by Esteban العلي MD at 02/06/191752 Author: Esteban العلي MD Service: Internal Medicine Author Type: Physician Filed: 02/07/19 1312 Date of Service: 02/06/191752 Status: Signed Power Wood Sawyer: Esteban العلي MD (Physician) [facility]: Hospitalist Progress Note Hospital Day: LOS: 5 days SUBJECTIVE Feels tired, nausea Patient Summary: Ms. Oconnor is a 38 yr old man with lady with HTN, GERD with esophagitis, hx of diverticuli tis and ESRD on CAPD, with recurrent culture negative bacterial peritonitis x3 presented to the ED on 02/01/19 at [facility] for abdominal pain, nausea, vomiting and diarrhea, transferred to [facility] for further management. She was afebrile but hypotensive on presentation. Her labs showed leukocytosis with bandemia. PD fluid analysis however showed w bc of 622 with 48% segs. She had elevated procalcitonin. ID has been consulted and currently on IP antibiotic. Removal of PD catheter was discussed with the patient. She was initially upset but later on agreed. Patient was referred to vascular surgery and had her PD cath rem dom on 02/04/19. She had a tunneled catheter placed on 02/05/19. Patient has been accepted to continue HD at [facility] dialysis on a MWF schedule. Scheduled Medications cefTAZidime 1 g Intravenous Q24H famotidine 20 mg Oral Daily Or famotidine 20 mg Intravenous Daily heparin (porcine) 5000 unit/0.5mL 5,000 Units Subcutaneous 2 times per day pantoprazole 40 mg Oral QAM AC scopolamine 1 patch Transdermal Once sevelamer 800 mg Oral TID WC sodium chloride (PF) 10 mL Intravenous Q8H traZODone 100 mg Oral Nightly Continuous Infusions dextrose PRN Medications acetaminophen OR acetaminophen, dextrose, dextrose, dextrose, fentaNYL OR fentaNYL, glucagon, glucagon, HYDROcodone-acetaminophen OR HYDROcodone-acetaminophen, polyethylen e glycol, potassium chloride OR potassium chloride OR potassium chloride, promethazi ne OBJECTIVE Vital Signs: BP 97/54 (BP Location: Right upper arm) | Pulse 79 | Temp 99.2 F (37.3 C) (Oral) | R enmanuel 20 | Ht 1.575 m (5' 2") | Wt 83.6 kg (184 lb 6.4 oz) | SpO2 100% | ? No | BMI 33.73 kg/m Patient Vitals for the past 24 hrs: BP Temp Temp src Pulse Resp SpO2 Weight 02/06/19 1622 97/54 99.2 F (37.3 C) Oral 79 20 100 % - 02/06/19 1234 104/58 98.9 F (37.2 C) Oral 74 20 100 % - 02/06/19 0817 100/53 98.7 F (37.1 C) Oral 62 20 99 % - 02/06/19 0531 114/61 - - - - - - 02/06/19 0500 (!) 89/52 - - - - - - 02/06/19 0437 (!) 88/53 99 F (37.2 C) Oral 70 18 96 % 83.6 kg (184 lb 6.4 oz) 02/05/19 2247 91/62 99.4 F (37.4 C) Oral 71 16 100 % - 02/05/192009 103/70 99.4 F (37.4 C) Oral 73 18 100 % - Intake/Output Summary (Last 24 hours) at 02/06/19 1753 Last data filed at 02/06/19 1649 Gross per 24 hour Intake 451.59 ml Output 0 ml Net 451.59 ml Physical Exam: Constitutional: Alert and oriented to person, place, and time. Appears IN NO DISTRESS IN BE D, . HEENT: Neck supple, no JVD, non icteric sclera. Cardiovascular: Normal rate, regular rhythm, normal heart sounds with S1 and S2, Exam re veals no gallop and no friction rub. Pulmonary/Chest: Effort normal and breath sounds normal. No stridor. No respiratory distres s. no wheezes. no rales. exhibits no tenderness. Abdominal: Soft. Bowel sounds are normal. exhibits no distension and no palpable mass. Ther e is no tenderness. There is no rebound and no guarding. Extremeties/Musculoskeletal: Normal range of motion.exhibits no tenderness. exhibits no ed maico. Neurological: Alert and oriented to person, place, and time. Skin: Skin is warm and dry. PALE DATA Recent Labs Lab 02/06/19 0502/05/19 0915 02/04/19 0647 WBC 13.68* 14.38* 15.37* RBC 3.04* 3.26* 3.23* HGB 9.0* 9.8* 9.8* HCT 27.8* 29.8* 28.8* MCV 91.4 91.6 89.3 MCH 29.6 30.1 30.2 MCHC 32.4 32.8 33.8 RDW 46.8 49.0 45.5 PLT 250 298 332 MPV 8.2 7.9 7.5 DIFFTYPE MANUAL AUTOMATED AUTOMATED Recent Labs Lab 02/06/19 0519 02/05/19 0915 02/05/19 0219 02/04/19 0647 02/03/19 0600 02/02/19 0540 02/01/19 0318 NA 139 141 -- -- 142 139 140 141 K 3.9 3.9 4.0 < > 2.9* 3.0* 3.4* 3.6 CL 102 107 -- -- 102 98* 101 103 CO2 27 24 -- -- 26 27 25 27 BUN 16 35* -- -- 29* 30* 29* 25 CREATININE 8.0* 13.50* -- -- 12.15* 12.8* 12.6* 11.53* PROT -- -- -- -- -- 5.5* 6.2* 5.7* BILITOT -- -- -- -- -- 0.2 0.3 <0.2 ALT -- -- -- -- -- 12 13 <7* AST -- -- -- -- -- 7* 12 11 GLUF 73 89 -- -- 87 91 100* 94 < > = values in this interval not displayed. Recent Labs Lab 02/01/19 1208 02/01/19 0718 TROPONINI <0.006 <0.006 Recent Labs Lab 02/04/19 0647 02/03/19 0600 02/01/19 0318 PHOS 6.0* 5.6* 5.4* Recent Labs Lab 02/03/19 0600 02/01/19 0318 MG 3.2* 3.0* Invalid input(s): ABG No results for input(s): CALCIUM in the last 168 hours. No results for input(s): APTT, INR, PTT in the last 168 hours. Us Abdomen Limited Result Date: 02/01/2019 1. Gallbladder and common bile duct are normal. 2. No acute abnormality of the liver. 3. No hydronephrosis of the right kidney. Signed by: Omar Cervantes Sign Date/Time: 02/01/2019 4:36 PM Us Upper Extremity Dialysis Mapping Bilateral Result Date: 2019 1. No evidence of superficial or deep venous thrombosis in the upper extremity veins. 2. Tr iphasic waveform noted in all arteries. 3. Bilateral upper extremity vein mapping measuremen ts as above. Signed by: DO Plascencia Edward Sign Date/Time: 2019 11:54 AM Us Shuttlecock Feather Trimmer Pelvis Transabd/endovaginal Result Date: 02/01/2019 1. Moderate free fluid in the pelvis likely related to known peritoneal dialysis catheter. Correlate clinically. 2. Hyperechoic enlarged right ovary with hyperemia and complex cystic structures. This is abnormal, and similar in size compared with 12/24/2018. This raises co ncern for ovarian mass. Enhanced MRI may help in further evaluation. 3. Complex cyst in the left ovary. Signed by: Cedric Smalls Sign Date/Time: 02/01/2019 11:09 AM PROBLEM LIST Principal Problem: SIRS (systemic inflammatory response syndrome) (HCC) Active Problems: Gastroenteritis End-stage renal disease (HCC) Prolonged Q-T interval on ECG Cyst of right ovary ASSESSMENT / PLAN PD peritonitis PD fluid culture negative Blood cultures negative ID following, on ceftazidime daily for now. Off vanco. Removal of PD catheter 02/04/19 ESRD Started HD. Chair time noted. MWF at [place]. S/p tunneled catheter placement 02/05/19 Continue P binder Hypokalemia Defer to nephrology HTN Noted BP readings, acceptable Off meds Anemia of ESRD Defer to nephrology regarding EPO Prolonged QTc Correct hypokalemia Repeat EKG DVT prophylaxis with heparin The plan has explained in detail to the patient , all questions were answered.All data was reviewed. I explained radiology and lab findings and plan of care to patient and relatives and they v erbalized understanding and agreement and had no more questions for me after my interaction with them. More than 35 minutes spent directly face to face with patient and more than 65% s pent for physical examination and talking with patient and relatives at bedside, on chart review, coordinating care with other providers, formulating a plan of care and management as well as Computerized Physician [employer]. Disposition: Home Code Status: Full Code Esteban العلي MD 02/06/2019 5:53 PM Paige Correa, Alonoz llanes MD - 02/06/2019 11:30 AM PDTFormatting of this note might be different from the ave ginal. Progress Notes by Alonzo Correa MD at 02/06/19 1130 Author: Alonzo Correa MD Service: Infectious Disease Author Type: Alex uma Filed: 02/07/19 1102 Date of Service: 02/06/19 1130 Status: Signed Power Wood Sawyer: Alonzo Correa MD (Physician) [facility]: Infectious Diseases Progress Note Hospital Day: LOS: 5 days Post-Op Day: 2 Days Post-Op CC: follow up on infection and antibiotic therapy SUBJECTIVE/OVERNIGHT EVENTS The patient remains on treatment with antibiotics. No acute events over last 24 hours are reported. Patient reports her abdominal pain is improving slowly, she had a downtrending leukocytosis now. Culture is still in progress. Patient had tunneled hemodialysis catheter placed. REVIEW OF SYSTEMS GI: denies diarrhea, Constitutional: denies fever and chills and Integumentary: denies skin rash MEDICATIONS: cefTAZidime 1 g Intravenous Q24H famotidine 20 mg Oral Daily Or famotidine 20 mg Intravenous Daily heparin (porcine) 5000 unit/0.5mL 5,000 Units Subcutaneous 2 times per day pantoprazole 40 mg Oral QAM AC scopolamine 1 patch Transdermal Once sevelamer 800 mg Oral TID WC sodium chloride (PF) 10 mL Intravenous Q8H traZODone 100 mg Oral Nightly dextrose PRN Medications acetaminophen OR acetaminophen, dextrose, dextrose, dextrose, fentaNYL OR fentaNYL, glucagon, glucagon, HYDROcodone-acetaminophen OR HYDROcodone-acetaminophen, polyethylen e glycol, potassium chloride OR potassium chloride OR potassium chloride, promethazi ne PHYSICAL EXAM Vital Signs: BP 100/53 (BP Location: Left upper arm) | Pulse 62 | Temp 98.7 F (37.1 C) (Oral) | R enmanuel 20 | Ht 1.575 m (5' 2") | Wt 83.6 kg (184 lb 6.4 oz) | SpO2 99% | ? No | BMI 33.73 kg/m Focused exam shows: General exam: No distress, cooperative with exam. HEENT: sclera non-icteric, no visible oral thrush Cardiovascular: regular rate and rhythm Lungs: no tachypnea, clear breath sounds. Mildly decreased at bases Abdomen: no distension, bowel sounds present Extremities/MSK: No edema, no joint effusions Skin: No lesions, normal turgor Neurologic: Awake, cranial nerves intact. Follows commands. LABS: All labs were reviewed. CBC: Lab Results Component Value Date WBC 13.89 (H) 02/07/2019 RBC 3.16 (L) 02/07/2019 HGB 9.4 (L) 02/07/2019 HCT 29.8 (L) 02/07/2019 MCV 94.3 02/07/2019 MCH 29.7 02/07/2019 MCHC 31.5 (L) 02/07/2019 RDW 50.3 02/07/2019 PLT 238 02/07/2019 MPV 8.2 02/07/2019 DIFFTYPE AUTOMATED 02/07/2019 CMP: Lab Results Component Value Date NA 141 02/07/2019 K 3.9 02/07/2019 CL 105 02/07/2019 CO2 28 02/07/2019 ANIONGAP 12 02/07/2019 GLUF 95 02/07/2019 BUN 116 (H) 02/07/2019 CREATININE 9.48 (H) 02/07/2019 BCR 12 02/07/2019 CA 7.8 (L) 02/07/2019 CA 9.0 09/07/2017 PROT 5.5 (L) 02/03/2019 ALB 2.9 (L) 02/04/2019 GLOB 3.7 02/03/2019 BILITOT 0.2 02/03/2019 ALP 69 02/03/2019 AST 7 (L) 02/03/2019 ALT 12 02/03/2019 EGFR 5 (L) 02/07/2019 ASSESSMENT & PLAN The patient is a 39 y.o.-year-old female with the following problems: Principal Problem: SIRS (systemic inflammatory response syndrome) (HCC) Active Problems: Gastroenteritis End-stage renal disease (HCC) Prolonged Q-T interval on ECG Cyst of right ovary Resolved Problems: * No resolved hospital problems. * 1. Recurrent peritoneal dialysis - associated peritonitis 2. Leukocytosis sec to #1. Low grade leukocytosis persists but overall is trending down. Continue to monitor this. Patient is clinically stable. Reports improvement in her abdomin al pain. 3. ESRD 4. Mild elevation of procalcitonin, expected in ESRD. Clinically stable from ID standpoint. Continue ceftazidime 1 g IV daily. Vancomycin levels are still detectable. Will repeat a vancomycin level before her dialysis on Friday. Continue current antibiotic regimen. Monitor daily kidney function. CBC CMP in the am. Alonzo Up MD, MPH Infectious Diseases 02/06/2019 onvers ion Transaction, Provider Unknown - 02/06/2019 6:59 AM PDT Pharmacy Note by Phillip Charles RPH at 02/06/19658 Author: Phillip hCarles RPH Service: Pharmacy Author Type: Pharmacist Filed: 02/06/19658 Date of Service: 02/06/19658 Status: Signed Power Wood Sawyer: Phillip Charles RPH (Pharmacist) Clinical Pharmacy Note: Renal Monitoring Height: 157 cm Weight: 84 kg Serum creatinine: 13.5 mg/dL (H) 02/05/19914 Estimated creatinine clearance: 5.5 mL/min (A) Will order the following dosage adjustments: Ceftazidime 1g IV Q24H Dosing Q24 due to clinical illness. Pharmacy will continue to follow and adjust medications as needed. Phillip Charles PharmD 02/06/2019 6:57 AM onver patric Transaction, Provider Unknown - 02/06/2019 4:44 AM PDT Nurse Progress Note by Marixa Terrazas RN at 02/06/19443 Author: Marixa Terrazas RN Service: (none) Author Type: Registered Nurse Filed: 02/06/19639 Date of Service: 02/06/19443 Status: Signed Power Wood Sawyer: Marixa Terrazas RN (Registered Nurse) BP's soft, 80-100's systolic, pt denies dizziness and is easily arousable. States her BP i s sometimes in the 80's. All other VSS. Medicated for pain and nausea. Tunneled dialysis catheter site C/D/I. No other changes from shift assessment. End of shift review and 24 geovanna r chart check completed. Marixa Terrazas RN onver patric Transaction, Provider Unknown - 2019 6:18 PM PDT Pharmacy Note by Phillip Charles RPH at 02/05/191817 Author: Phillip Charles RPH Service: Pharmacy Author Type: Pharmacist Filed: 02/05/191817 Date of Service: 02/05/191817 Status: Signed Power Wood Sawyer: Phillip Charles RPH (Pharmacist) Clinical Pharmacy Note: Renal Monitoring Height: 157 cm Weight: 83 kg Serum creatinine: 13.5 mg/dL (H) 02/05/19914 Estimated creatinine clearance: 5.5 mL/min (A) Will order the following dosage adjustments: Ceftazidime 1g IV Q48H (For CrCl <10ml/min) Pharmacy will continue to follow and adjust medications as needed. Phillip Charles PharmD 2019 6:18 PM onver patric Transaction, Provider Unknown - 2019 6:12 PM PDT Nurse Progress Note by Zabrina Rubio RN at 02/05/191811 Author: Zabrina Rubio RN Service: (none) Author Type: Registered Nurse Filed: 02/05/191820 Date of Service: 02/05/191811 Status: Signed Power Wood Sawyer: Zabrina Rubio RN (Registered Nurse) Pt had tunneled HD cath placed this morning around 0730, tolerated the procedure well, but has been having associated R shoulder pain. BUE U/S mapping for future fistula placement als o done this morning. Pt had first HD treatment this afternoon, tolerated well. Pt currently on CLD, poor appetite, does not want solid food at this time. Pt still struggling with nause a. Pt medicated for pain x 3 this shift. Repeat EKG preformed this evening. VSS End of shift chart check complete Barrington Gandara MD - 2019 4:37 PM PDTFormatting of this note might be different from the ave ginal. Progress Notes by Alyce Sparks MD at 02/05/19 1637 Author: Alyce Sparks MD Service: Hospitalist Author Type: Physician Filed: 02/05/19 1646 Date of Service: 02/05/19 1637 Status: Signed Power Wood Sawyer: Alyce Sparks MD (Physician) [facility]: Hospitalist Progress Note Hospital Day: LOS: 4 days SUBJECTIVE Patient Summary: Ms. Oconnor is a 38 yr old man with lady with HTN, GERD with esophagitis, hx of diverticuli tis and ESRD on CAPD, with recurrent culture negative bacterial peritonitis x3 presented to the ED on 02/01/19 at [facility] for abdominal pain, nausea, vomiting and diarrhea, transferred to [facility] for further management. She was afebrile but hypotensive on presentation. Her labs showed leukocytosis with bandemia. PD fluid analysis however showed w bc of 622 with 48% segs. She had elevated procalcitonin. ID has been consulted and currently on IP antibiotic. Removal of PD catheter was discussed with the patient. She was initially upset but later on agreed. Patient was referred to vascular surgery and had her PD cath rem dom on 02/04/19. She had a tunneled catheter placed on 02/05/19. Patient has been accepted to continue HD at [facility] dialysis on a MWF schedule. Events Overnight: Patient was seen today, was in pain from the catheter site and complained of nausea. Scheduled Medications famotidine 20 mg Oral Daily Or famotidine 20 mg Intravenous Daily heparin (porcine) 5000 unit/0.5mL 5,000 Units Subcutaneous 2 times per day pantoprazole 40 mg Oral QAM AC scopolamine 1 patch Transdermal Once sevelamer 800 mg Oral TID WC sodium chloride (PF) 10 mL Intravenous Q8H traZODone 100 mg Oral Nightly Continuous Infusions dextrose PRN Medications acetaminophen OR acetaminophen, dextrose, dextrose, dextrose, fentaNYL OR fentaNYL, glucagon, glucagon, HYDROcodone-acetaminophen OR HYDROcodone-acetaminophen, polyethylen e glycol, potassium chloride OR potassium chloride OR potassium chloride, promethazi ne OBJECTIVE Vital Signs: BP 115/70 (BP Location: Left upper arm) | Pulse 80 | Temp 98.5 F (36.9 C) (Oral) | R enmanuel 20 | Ht 1.575 m (5' 2") | Wt 82.9 kg (182 lb 12.2 oz) | SpO2 100% | ? N o | BMI 33.43 kg/m Patient Vitals for the past 24 hrs: BP Temp Temp src Pulse Resp SpO2 Weight 02/05/19 1535 115/70 98.5 F (36.9 C) Oral 80 20 100 % 82.9 kg (182 lb 12.2 oz) 02/05/19 1526 133/78 - - 75 18 100 % - 02/05/19 1515 115/75 - - 72 16 99 % - 02/05/19 1500 116/72 - - 63 18 99 % - 02/05/19 1445 135/67 - - 68 18 100 % - 02/05/19 1430 122/62 - - 68 18 98 % - 02/05/19 1415 101/65 - - 63 16 99 % - 02/05/19 1400 110/64 - - 67 16 98 % - 02/05/19 1345 113/65 - - 69 18 98 % - 02/05/19 1330 117/69 - - 62 18 97 % - 02/05/19 1315 114/69 - - 63 18 98 % - 02/05/19 1300 - - - - 18 - - 02/05/19 1245 (!) 143/93 - - 75 20 99 % - 02/05/19 1230 120/68 - - 77 20 100 % - 02/05/19 1215 127/81 - - 78 18 100 % - 02/05/19 1157 111/71 - - 69 - 99 % - 02/05/19 1156 111/71 - - 91 18 97 % - 02/05/19 1145 105/57 - - 77 - 98 % - 02/05/19 1130 106/57 - - 73 - 99 % - 02/05/19 1129 105/59 - - 71 - 99 % - 02/05/19 1128 105/59 98.8 F (37.1 C) Oral 67 20 - 83.3 kg (183 lb 10.3 oz) 02/05/19 1000 102/57 - - 81 - 97 % - 02/05/19 0945 108/60 - - 74 - 97 % - 02/05/19 0930 108/64 - - 74 - 97 % - 02/05/19 0915 98/56 - - 73 - 97 % - 02/05/19 0900 117/71 - - 75 - 97 % - 02/05/19 0845 98/55 - - 76 - 96 % - 02/05/19 0830 106/58 - - 72 - 97 % - 02/05/19 0818 - - - 60 - (!) 88 % - 02/05/19 0817 123/67 - - 58 - - - 02/05/19 0755 104/65 - - 79 22 96 % - 02/05/19 0750 99/63 - - 80 21 97 % - 02/05/19 0745 108/65 - - 86 24 96 % - 02/05/19 0740 111/67 - - 69 24 98 % - 02/05/19 0735 105/71 - - 79 23 97 % - 02/05/19 0732 106/62 - - 67 20 99 % - 02/05/19 0725 112/72 - - 69 22 99 % - 02/05/19 0720 - - - 60 - - - 02/05/19 0303 96/60 98.6 F (37 C) Oral 71 18 99 % - 02/04/19 2312 95/55 99.2 F (37.3 C) Oral 68 20 98 % - 02/04/19 210 94/54 98.9 F (37.2 C) Oral 70 20 100 % - 02/04/192007 99/52 97.6 F (36.4 C) Axillary 77 12 100 % - 02/04/19 193 97/53 98.6 F (37 C) Oral 74 16 100 % - 02/04/19 1749 101/63 98.4 F (36.9 C) Oral 64 16 98 % - 02/04/19 1735 98/57 98.2 F (36.8 C) Temporal 71 18 95 % - 02/04/19 1730 98/54 - - 73 14 94 % - 02/04/19 1725 97/56 - - 66 17 95 % - 02/04/19 1720 95/57 - - 66 14 99 % - 02/04/19 1715 95/56 - - 63 19 90 % - 02/04/19 1710 102/61 - - 63 14 94 % - 02/04/19 1705 95/60 - - 66 18 95 % - 02/04/19 1700 96/56 - - 65 19 97 % - 02/04/19 1655 95/56 - - 69 24 97 % - 02/04/19 1653 93/55 - - 70 26 90 % - 02/04/19 1650 (!) 89/52 98 F (36.7 C) Temporal 70 10 96 % - Intake/Output Summary (Last 24 hours) at 02/05/19 1637 Last data filed at 02/05/19 1535 Gross per 24 hour Intake 2620 ml Output 2100 ml Net 520 ml Physical Exam Constitutional: She is oriented to person, place, and time. Obese lady, lying in bed, not in any respiratory distress but in much discomfort from pain at the HD catheter site. HD in progress, tolerating it well. HENT: Head: Normocephalic and atraumatic. Mouth/Throat: Oropharynx is clear and moist. Eyes: Pupils are equal, round, and reactive to light. Conjunctivae are normal. Neck: Normal range of motion. No JVD present. Cardiovascular: Normal rate and regular rhythm. No murmur heard. Pulmonary/Chest: Effort normal and breath sounds normal. She has no wheezes. She has no ral es. Abdominal: Soft. Bowel sounds are normal. There is no tenderness. Musculoskeletal: She exhibits no edema. Lymphadenopathy: She has no cervical adenopathy. Neurological: She is alert and oriented to person, place, and time. No cranial nerve defici t. Skin: Skin is warm. Psychiatric: Mood and affect normal. DATA CBC: Lab Results Component Value Date WBC 14.38 (H) 2019 RBC 3.26 (L) 2019 HGB 9.8 (L) 2019 HCT 29.8 (L) 2019 MCV 91.6 2019 MCH 30.1 2019 MCHC 32.8 2019 RDW 49.0 2019 PLT 298 2019 MPV 7.9 2019 DIFFTYPE AUTOMATED 2019 CMP: Lab Results Component Value Date NA 141 2019 K 3.9 2019 CL 107 2019 CO2 24 2019 ANIONGAP 14 2019 GLUF 89 2019 BUN 35 (H) 2019 CREATININE 13.50 (H) 2019 BCR 3 2019 CA 7.3 (L) 2019 CA 9.0 09/07/2017 PROT 5.5 (L) 02/03/2019 ALB 2.9 (L) 02/04/2019 GLOB 3.7 02/03/2019 BILITOT 0.2 02/03/2019 ALP 69 02/03/2019 AST 7 (L) 02/03/2019 ALT 12 02/03/2019 EGFR 3 (L) 2019 IMAGES Us Abdomen Limited Result Date: 02/01/2019 1. Gallbladder and common bile duct are normal. 2. No acute abnormality of the liver. 3. No hydronephrosis of the right kidney. Signed by: Omar Cervantes Sign Date/Time: 02/01/2019 4:36 PM Us Shuttlecock Feather Trimmer Pelvis Transabd/endovaginal Result Date: 02/01/2019 1. Moderate free fluid in the pelvis likely related to known peritoneal dialysis catheter. Correlate clinically. 2. Hyperechoic enlarged right ovary with hyperemia and complex cystic structures. This is abnormal, and similar in size compared with 12/24/2018. This raises co ncern for ovarian mass. Enhanced MRI may help in further evaluation. 3. Complex cyst in the left ovary. Signed by: Cedric Smalls Sign Date/Time: 02/01/2019 11:09 AM PROBLEM LIST Principal Problem: SIRS (systemic inflammatory response syndrome) (HCC) Active Problems: Gastroenteritis End-stage renal disease (HCC) Prolonged Q-T interval on ECG Cyst of right ovary ASSESSMENT & PLAN PD peritonitis PD fluid culture negative Blood cultures negative ID following, on ceftazidime daily and vancomycin, defer to ID Removal of PD catheter 02/04/19 ESRD Started HD today, tolerated the treatment well S/p tunneled catheter placement 02/05/19 Defer to nephrology Continue P binder Hypokalemia Defer to nephrology HTN Noted BP readings, acceptable Off meds Anemia of ESRD Defer to nephrology regarding EPO Prolonged QTc Correct hypokalemia Repeat EKG DVT prophylaxis with heparin Disposition: Pending Code Status: Full Code Alyce Sparks MD 2019 4:37 PM onversion Transaction , Provider Unknown - 2019 3:44 PM PDT Progress Notes by Soo Portillo at 02/05/19 1544 Author: Soo Portillo Service: Nephrology Author Type: Coordinator Filed: 02/05/19 1549 Date of Service: 02/05/19 1544 Status: Signed Power Wood Sawyer: Soo Portillo (Coordinator) Patients chair time is: Friday @ 11:30am first day 02-08-19 [facility] [address] [id number] Thank you Marguerite Hernandez LMT - 2019 2:14 PM PDT Therapy Progress Note by DIANA Armendariz at 02/05/19 141 Author: DIANA Armendariz Service: (none) Author Type: Massage Therapist Filed: 02/05/19 141 Date of Service: 02/05/191413 Status: Signed Power Wood Sawyer: DIANA Armendariz (Massage Therapist) 02/05/19 141 Massage Therapy Interventions Locations Feet Massage Therapy Technique Effleurage;Petrissage;[place] massage Response to treatment Decreased muscle tension Linden Kincaid M D - 2019 11:46 AM PDT Progress Notes by Linden Alonzo MD at 02/05/19 1146 Author: Linden Alonzo MD Service: Nephrology Author Type: Physician Filed: 02/07/19 1933 Date of Service: 02/05/191145 Status: Signed Power Wood Sawyer: Linden Alonzo MD (Physician) [facility]: NEPHROLOGY Progress Note Ramona Oconnor 39 y.o. [id number] female [facility] Day: LOS: 4 days Patient with PMH as listed below admitted with nausea vomiting, abdominal pain and recurren t PD associated peritonitis, after discussion with the family PD catheter removed and patien t switched to hemodialysis Nephrology consulted for evaluation and management of ESRD CHRONIC SEVERE ASSOCIATED WITH FLUID ELECTROLYTE IMBALANCES Assess need for hd/uf SUBJECTIVE Patient seen and examined SAYS FEEL weak, +ve nausea PD catheter removed yesterday, Got HD catheter placed this am DENIES CHEST PAIN, SOB, VOMITING, DIARRHEA, FEVER, [...] 10/25/15 showed normal sized kidneys. 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 GERD (gastroesophageal reflux disease) Hypercalcemia 09/07/2017 Hyperphosphatemia 10/28/2015 Hypocalcemia 10/28/2015 Hypokalemia 06/04/2017 Itching 10/28/2015 Metabolic acidosis 10/28/2015 Obesity Peritonitis associated with peritoneal dialysis (HCC) 01/24/2017 Peritonitis due to infected peritoneal dialysis catheter (HCC) 12/08/2018 Secondary hyperparathyroidism (HCC) Uremia 10/28/2015 Past Surgical History Procedure Laterality Date CATHETER REMOVAL N/A 02/04/2019 Procedure: DIALYSIS CATHETER - REMOVAL; Surgeon: Qasim Pederson MD; Location: [facility] MAIN OR ; Service: Vascular; Laterality: N/A; Infected PD catheter removal ESOPHAGOGASTRODUODENOSCOPY N/A 09/10/2017 Procedure: ESOPHAGOGASTRODUODENOSCOPY; Surgeon: Beena Peters MD; Location: [facility] ENDOSCOP Y; Service: Gastroenterology; Laterality: N/A; PERITONEAL CATHETER INSERTION N/A 10/28/2015 Procedure: LAPAROSCOPIC - PERITONEAL DIALYSIS CATH INSERTION; Surgeon: Mundo Ramos MD; Lo cation: [facility] MAIN OR; Service: Vascular; Laterality: [...] and is a former smoker. Scheduled Medications cefTAZidime 2 g Intravenous Once epoetin chito 10,000 Units Intravenous Once in dialysis famotidine 20 mg Oral Daily Or famotidine 20 mg Intravenous Daily heparin (porcine) 3,400 Units Intracatheter Once in dialysis heparin (porcine) 5000 unit/0.5mL 5,000 Units Subcutaneous 2 times per day pantoprazole 40 mg Oral QAM AC scopolamine 1 patch Transdermal Once sevelamer 800 mg Oral TID WC sodium chloride (PF) 10 mL Intravenous Q8H traZODone 100 mg Oral Nightly Continuous Infusions dextrose PRN Medications acetaminophen OR acetaminophen, dextrose, dextrose, dextrose, fentaNYL OR fentaNYL, glucagon, glucagon, HYDROcodone-acetaminophen OR HYDROcodone-acetaminophen, polyethylen e glycol, potassium chloride OR potassium chloride OR potassium chloride, promethazi ne Allergy: No Known Allergies OBJECTIVE Vital Signs: BP 117/71 | Pulse 75 | Temp 98.6 F (37 C) (Oral) | Resp 22 | Ht 1.575 m (5' 2") | Wt 84.4 kg (186 lb) | SpO2 97% | ? No | BMI 34.02 kg/m I&O Detailed Table: I/O last 3 completed shifts: In: 93336 [P.O.:800; I.V.:765; Other:78825] Out: 16062 [Other:59529] Weight change: Examination: APPEARANCE: The patient is lying in no apparent distress, awake and alert VITALS: Reviewed as listed. EYES: Non-icteric sclera. LUNGS: Clear to auscultation bilaterally. HEART: S1, S2, no pericardial rub noted. ABDOMEN: Full, soft, no tenderness. EXTREMITIES: no pedal edema noted. NEUROLOGIC: No gross focal motor deficit noted, no Asterixis. PSYCH: The patient is alert and oriented x 3, mood and affect looks ok R IJ HD CATHETER IN PLACE LABS: Recent Results (from the past 24 hour(s)) Potassium Collection Time: 02/04/19 10:34 PM Result Value Ref Range POTASSIUM 3.4 (L) 3.5 - 4.9 mmol/L Potassium Collection Time: 02/05/19 2:19 AM Result Value Ref Range POTASSIUM 4.0 3.5 - 4.9 mmol/L Vancomycin, random Collection Time: 02/05/19 9:15 AM Result Value Ref Range VANCOMYCIN,RANDOM 26.2 ug/mL CBC w/auto diff (reflex to manual) Collection Time: 02/05/19 9:15 AM Result Value Ref Range WBC 14.38 (H) 3.80 - 11.00 K/uL RBC 3.26 (L) 3.70 - 5.10 M/uL HGB 9.8 (L) 11.3 - 15.5 g/dL HCT 29.8 (L) 34.0 - 46.0 % MCV 91.6 80.0 - 100.0 fl MCH 30.1 27.0 - 34.0 pg MCHC 32.8 32.0 - 35.5 g/dL RDW SD 49.0 37 - 53 fl PLT 298 150 - 400 K/uL MPV 7.9 fl DIFF TYPE AUTOMATED NEUTROPHILS 83.77 % LYMPHOCYTES 9.05 % MONOCYTES 5.31 % EOSINOPHILS 1.53 % BASOPHILS 0.34 % NEUTROPHILS ABS 12.25 (H) 1.90 - 7.40 K/uL LYMPHOCYTES ABS 1.32 1.00 - 3.90 K/uL MONOCYTES ABS 0.78 0.00 - 0.80 K/uL EOSINOPHILS ABS 0.22 0.00 - 0.50 K/uL BASOPHILS ABS 0.05 0.00 - 0.10 K/uL MORPHOLOGY RBC AND PLT MORPHOLOGY APPEAR NORMAL Diff Comment SLIDE SCANNED, AGREES WITH AUTOMATED RESULTS. Basic metabolic panel Collection Time: 02/05/19 9:15 AM Result Value Ref Range SODIUM 141 135 - 145 mmol/L POTASSIUM 3.9 3.5 - 4.9 mmol/L CHLORIDE 107 99 - 109 mmol/L CO2 24 23 - 32 mmol/L ANION GAP AGAP 14 5 - 20 mmol/L GLUCOSE 89 65 - 99 mg/dL BUN 35 (H) 8 - 25 mg/dL CREATININE 13.50 (H) 0.50 - 1.00 mg/dL BUN/CREAT 3 CALCIUM 7.3 (L) 8.5 - 10.5 mg/dL EGFR 3 (L) >60 mL/min/1.73m2 Imaging Us Abdomen Limited Result Date: 02/01/2019 ULTRASOUND ABDOMEN, LIMITED CLINICAL INFORMATION: Right upper quadrant pain since yesterday COMPARISON: US PELVIS WITH ENDOVAGINAL (02/01/2019); CT ABDOMEN AND PELVIS WITHOUT AND WITH CONTRAST AND ANGIOGRAPHY (01/04/2019); ULTRASOUND PELVIS (12/24/2018); PROCEDURE: Evaluation o f the gallbladder, if present, common bile duct, liver, and right kidney. FINDINGS: Liver: N o focal liver lesion. Minimal ascitic fluid about the liver. Gallbladder/Bile Duct: No gall stones or gallbladder wall thickening. No intrahepatic or extrahepatic biliary dilatation. C ommon bile duct 3.6 mm. Right kidney: 7.1 cm. No solid renal mass, hydronephrosis or definit elizabeth calculi. IVC normal. No ascites. 1. Gallbladder and common bile duct are normal. 2. No acute abnormality of the liver. 3. No hydronephrosis of the right kidney. Signed by: Omar Cervantes Sign Date/Time: 02/01/2019 4:36 PM Ir Guidance Vascular Access Us Result Date: 2019 This Point of Care (POC) ultrasound image has been reviewed and interpreted by the physicia n identified as the performing physician in the associated interpretation and report. Us Shuttlecock Feather Trimmer Pelvis Transabd/endovaginal Result Date: 02/01/2019 ULTRASOUND PELVIS, TRANSABDOMINAL AND TRANSVAGINAL CLINICAL INFORMATION: Right ovarian mass . UNK LMP. COMPARISON: CT ABDOMEN AND PELVIS WITHOUT AND WITH CONTRAST AND ANGIOGRAPHY (01/04); ULTRASOUND PELVIS (12/24/2018); ULTRASOUND, TRANSVAGINAL ONLY (12/24/2018); PROCEDURE: Transabdominal and transvaginal ultrasound evaluation of the uterus, endometrium, adnexa an d ovaries. FINDINGS: Transabdominal: Limited evaluation due to patient body habitus. Uterus: 7.4 x 3.3 x 4.1 cm. Uterus grossly unremarkable. Endometrium difficult to define. Moderat e free fluid adjacent to the uterus. Transvaginal: Uterus normal. Endometrium is homogeneous . Endometrium: 7.2 mm. Nabothian cysts measure up to 1.3 cm in the cervix. Right ovary: 5.4 x 3.9 x 4.2 cm. Hyperechoic appearance of the right ovary with multiple complex septated cy stic structures in the right ovary measuring up to 2.8 cm. Color flow and spectral Doppler evaluation shows arterial and venous flow throughout the right ovary with hyperemia. Left ov elen: 3.7 x 2.7 x 2.4 cm. Thinly septated cyst measures 2.7 x 2.1 x 2.7 cm. Color flow and s pectral Doppler evaluation unremarkable. Moderate anechoic fluid. The peritoneal dialysis c atheter in the anterior pelvis noted on CT is not defined by ultrasound. 1. Moderate free fluid in the pelvis likely related to known peritoneal dialysis catheter. Correlate clinically. 2. Hyperechoic enlarged right ovary with hyperemia and complex cystic structures. This is abnormal, and similar in size compared with 12/24/2018. This raises co ncern for ovarian mass. Enhanced MRI may help in further evaluation. 3. Complex cyst in the left ovary. Signed by: Cedric Smalls Sign Date/Time: 02/01/2019 11:09 AM PROBLEM LIST Principal Problem: SIRS (systemic inflammatory response syndrome) (HCC) Active Problems: Gastroenteritis End-stage renal disease (HCC) Prolonged Q-T interval on ECG Cyst of right ovary ASSESSMENT & PLAN ESRD ON HD Plan for hd/uf today Assess daily for need for hd & uf PD catheter removed yesterday, Got HD catheter placed this am Orders in the chart Fluid restriction 1.2 litres/24 hours Strict I & O Daily RFP Renal diet Daily weights will help with subsequent hd with uf Dose all meds per protocol for ESRD on hd ANEMIA in ESRD stable EPOGEN TO KEEP HGB 10-11 Lab Results Component Value Date HGB 9.8 (L) 2019 HGB 9.8 (L) 02/04/2019 HGB 9.6 (L) 02/03/2019 FERRITIN 56 10/27/2015 LABIRON 12 (L) 10/27/2015 HYPERTENSION Controlled WATCH BP CLOSELY DURING HOSPITALIZATION LOW NA DIET Will adjust BP meds according to BP readings BP Readings from Last 3 Encounters: 02/05/19 117/71 01/09/19 105/55 12/27/18 104/63 HYPERPHOSPHATEMIA LOW P DIET PO4 BINDERS Renvela with meals Lab Results Component Value Date PHOS 6.0 (H) 02/04/2019 PHOS 5.6 (H) 02/03/2019 PHOS 5.4 (H) 02/01/2019 HYPOALBUMINEMIA INCREASE PROTEIN INTAKE Lab Results Component Value Date ALB 2.9 (L) 02/04/2019 ALB 1.8 (L) 02/03/2019 ALB 2.0 (L) 02/02/2019 CASE DISCUSSED IN DETAIL WITH PATIENT/ care team, ANSWERS ALL QUESTIONS IN DETAIL, VERBALIZ ES UNDERSTANDING LINDEN ALONZO MD 2019 JUAN F QUAEMPTS Seen earlier and charting completed later Dictation software, bLife, used which may contain error for similar sounding words even af ter review. Personal communication requested for any clarification. Portions of my notes may have been carried over for continuity of care. onversion Transaction, Provider Unknown - 2019 11:21 AM PDTFormatting of this note might be different from t he original. Case Management by Lilo Iqbal RN at 02/05/19 1121 Author: Lilo Iqbal RN Service: (none) Author Type: Registered Nurse Filed: 02/05/19 1601 Date of Service: 02/05/19 1121 Status: Addendum Power Wood Sawyer: Lilo Iqbal RN (Registered Nurse) Related Notes: Original Note by Lilo qIbal RN (Registered Nurse) filed a t 02/05/19 1127 CM informed Soo, dialysis coordinator, that pt will be transitioning from peritoneal irving lysis to hemodialysis, to assist with finding a HD chair time upon discharge. CM will contin ue to follow for discharge planning. Soo contacted CM verifying chair time for pt M/W/F @ 11:30 at [facility], starting 02/08. Abx script will need to be faxed to [facility] #[phone] p rior to discharge. onver patric Transaction, Provider Unknown - 2019 11:00 AM PDT Nurse Progress Note by Zabrina Rubio RN at 02/05/19 1100 Author: Zabrina Rubio RN Service: (none) Author Type: Registered Nurse Filed: 02/05/19 1200 Date of Service: 02/05/19 1100 Status: Signed Power Wood Sawyer: Zabrina Rubio RN (Registered Nurse) This RN notified by [facility] that pt was c/o pain. Upon assessment pt very lethargic. Told pt an d family at bedside that when pt is more alert I will reassess for pain medication. Dialysis nurse at bedside alerted to situation. VSS Alonzo Cool MD - 2019 10:52 AM PDTFormatting of this note might be differe nt from the original. Progress Notes by Alonzo Correa MD at 02/05/19 1052 Author: Alonzo Correa MD Service: Infectious Disease Author Type: Physic uma Filed: 02/05/19 1402 Date of Service: 02/05/19 1052 Status: Signed Power Wood Sawyer: Alonzo Correa MD (Physician) [facility]: Infectious Diseases Progress Note Hospital Day: LOS: 4 days Post-Op Day: 1 Day Post-Op CC: Follow up on peritonitis SUBJECTIVE/OVERNIGHT EVENTS Patient had HD catheter placed today. Unfortunately she did not get her ceftazidime last night due to misunderstanding of orders. Pt to have first hemodialysis today. Afebrile with some residual leukocytosis. REVIEW OF SYSTEMS GI: denies diarrhea, Constitutional: denies fever and chills and Integumentary: denies skin rash MEDICATIONS: cefTAZidime 2 g Intravenous Once epoetin chito 10,000 Units Intravenous Once in dialysis famotidine 20 mg Oral Daily Or famotidine 20 mg Intravenous Daily heparin (porcine) 5000 unit/0.5mL 5,000 Units Subcutaneous 2 times per day pantoprazole 40 mg Oral QAM AC scopolamine 1 patch Transdermal Once sevelamer 800 mg Oral TID WC sodium chloride (PF) 10 mL Intravenous Q8H traZODone 100 mg Oral Nightly dextrose PRN Medications acetaminophen OR acetaminophen, dextrose, dextrose, dextrose, fentaNYL, fentaNYL OR fentaNYL, fentaNYL, glucagon, glucagon, HYDROcodone-acetaminophen OR HYDROcodone-acetam inophen, polyethylene glycol, potassium chloride OR potassium chloride OR potassium chloride, promethazine PHYSICAL EXAM Vital Signs: BP 117/71 | Pulse 75 | Temp 98.6 F (37 C) (Oral) | Resp 22 | Ht 1.575 m (5' 2") | Wt 84.4 kg (186 lb) | SpO2 97% | ? No | BMI 34.02 kg/m Temp (24hrs), Av.5 F (36.9 C), Min:97.6 F (36.4 C), Max:99.2 F (37.3 C) General Appearance: Alert, cooperative, no distress and obese Head: Normocephalic, without obvious abnormality, atraumatic. Lips, mucosa, and tongue normal; dentition normal; no thrush present. Eyes: PERRL, conjunctiva/corneas clear, EOM's intact. Throat: Oropharynx clear without exudates Neck: Supple, symmetrical, trachea midline, no adenopathy; thyroid: no enlargement/tenderness/nodules; no carotid bruit or JVD Back: Symmetric, no curvature, ROM normal, no CVA tenderness Lungs: Clear to auscultation bilaterally, respirations unlabored Chest Wall: No tenderness or deformity Heart: Regular rate and rhythm, S1 and S2 normal, no murmur noted, rub or gallop. Abdomen: Soft, non-tender, bowel sounds active all four quadrants, no masses, no organomegaly Extremities: Extremities normal, atraumatic, no cyanosis or edema Pulses: 2+ and symmetric all extremities Skin: Skin color, texture, turgor normal, no rashes or lesions Lymph nodes: Cervical, supraclavicular, inguinal and axillary nodes normal Neurologic: : normal without focal findings, mental status, speech normal, alert and oriented x3, P ERLA and reflexes normal and symmetric Normal genitalia. No Coronado catheter. Venous access: Right IJ catheter for dialysis LABS: All labs reviewed. CBC: Lab Results Component Value Date WBC 14.38 (H) 2019 RBC 3.26 (L) 2019 HGB 9.8 (L) 2019 HCT 29.8 (L) 2019 MCV 91.6 2019 MCH 30.1 2019 MCHC 32.8 2019 RDW 49.0 2019 PLT 298 2019 MPV 7.9 2019 DIFFTYPE AUTOMATED 2019 CMP: Lab Results Component Value Date NA 141 2019 K 3.9 2019 CL 107 2019 CO2 24 2019 ANIONGAP 14 2019 GLUF 89 2019 BUN 35 (H) 2019 CREATININE 13.50 (H) 2019 BCR 3 2019 CA 7.3 (L) 2019 CA 9.0 09/07/2017 PROT 5.5 (L) 02/03/2019 ALB 2.9 (L) 02/04/2019 GLOB 3.7 02/03/2019 BILITOT 0.2 02/03/2019 ALP 69 02/03/2019 AST 7 (L) 02/03/2019 ALT 12 02/03/2019 EGFR 3 (L) 2019 MICROBIOLOGY Results Procedure Component Value Units Date/Time Fluid culture w/gram stain [[id number]] Collected: 02/01/19 0751 Specimen: Body Fluid from Peritoneal Fluid Updated: 02/05/19 0646 Specimen Description PERITONEAL FLUID GRAM STAIN 1+ GRAM STAIN WBC'S SEEN GRAM STAIN NO ORGANISMS SEEN CULTURE NO GROWTH 4 DAYS Catheter tip culture [[id number]] Collected: 02/04/19 1705 Specimen: Catheter Tip Updated: 02/04/19 1900 Blood Culture Set 2 [[id number]] Collected: 02/01/19316 Specimen: Blood from Blood Updated: 02/02/19 1335 Specimen Description BLOOD CULTURE NO GROWTH AT THIS TIME Blood Culture Set 1 [[id number]] Collected: 02/01/19316 Specimen: Blood from Blood Updated: 02/02/191334 Specimen Description BLOOD CULTURE NO GROWTH AT THIS TIME IMAGING Reviewed images of : No new images for review ASSESSMENT & PLAN The patient is a 39 y.o.-year-old female with the following problems: Principal Problem: SIRS (systemic inflammatory response syndrome) (HCC) Active Problems: Gastroenteritis End-stage renal disease (HCC) Prolonged Q-T interval on ECG Cyst of right ovary 1. Recurrent peritoneal dialysis - associated peritonitis 2. Leukocytosis sec to #1 3. ESRD 4. Mild elevation of procalcitonin, expected in ESRD. Patient still has circulating vancomycin levels. Continue with IV ceftazidime 1 g IV daily. As patient missed her dose yesterday, will give 2 g today and resume 1 g IV daily tomorrow, given at night. Once she is ready for discharg e, will transition to intermittent ceftazidime with dialysis. Same for vancomycin. Discussed with Dr. Bridger Up MD, MPH Infectious Diseases 2019 oi, Eh Porras MD - 2019 7:16 AM PDTFormatting of this note might be different from the origi nal. Progress Notes by Qasim Pederson MD at 02/05/19 0716 Author: Qasim Pederson MD Service: Vascular Surgery Author Type: Physician Filed: 02/05/19 0727 Date of Service: 02/05/19715 Status: Addendum Power Wood Sawyer: Qasim Pederson MD (Physician) Related Notes: Original Note by Man Jeronimo PA-C (Physician Order Management Specialist - Certified) fi led at 02/05/19 0722 [facility]: Vascular Surgery Progress Note Hospital Day: LOS: 4 days Post-Op Day: 1 Day Post-Op SUBJECTIVE Patient Summary: The patient is a 38 y.o. female with significant past medical history of hypertension, diverticulitis, and end stage renal disease on peritoneal dialysis who pre sented to [facility] Emergency Department with complaints for worsening abdominal pain and nausea. The patient was admitted to [facility] about one month ago (01/05/19 - 01/09/19) after developing ab dominal pain and leukocytosis. She was diagnosed with bacterial peritonitis secondary to div erticulitis. She was treated with intravenous and intraperitoneal antibiotics. She was disch arged on 01/09/2019 from [facility]. She did well for a few weeks but developed severe nausea and ab dominal pain and presented to [place]' ED. She was eventually transferred to [facility] for f urther evaluation and treatment. She was diagnosed with peritonitis and a peritoneal fluid c ell count was consistent with infection. Nephrology was consulted and has requested removal of her peritoneal dialysis catheter. Vascular Surgery has been consulted for evaluation and treatment of her infected peritoneal dialysis catheter. Events Overnight: She is POD 1 and doing well. She has some severe nausea this morning , and had one episode of vomiting. Scheduled Medications cefTAZidime 1 g Intravenous Q24H famotidine 20 mg Oral Daily Or famotidine 20 mg Intravenous Daily heparin (porcine) 5000 unit/0.5mL 5,000 Units Subcutaneous 2 times per day heparin (porcine) 5000 unit/mL 1,000 Units Intracatheter Once lidocaine 20 mL Other Once pantoprazole 40 mg Oral QAM AC scopolamine 1 patch Transdermal Once sevelamer 800 mg Oral TID WC sodium chloride (PF) 10 mL Intravenous Q8H traZODone 100 mg Oral Nightly Continuous Infusions dextrose PRN Medications acetaminophen OR acetaminophen, dextrose, dextrose, dextrose, fentaNYL, fentaNYL OR fentaNYL, fentaNYL, glucagon, glucagon, HYDROcodone-acetaminophen OR HYDROcodone-acetam inophen, midazolam, polyethylene glycol, potassium chloride OR potassium chloride OR potassium chloride, promethazine OBJECTIVE Vital Signs: BP 96/60 (BP Location: Left upper arm) | Pulse 71 | Temp 98.6 F (37 C) (Oral) | Resp 18 | Ht 1.575 m (5' 2") | Wt 84.4 kg (186 lb) | SpO2 99% | ? No | BMI 34. 02 kg/m Constitutional: Well nourished, no signs of distress HENT: Non icteric sclerae, oropharynx clear. Normocephalic and atraumatic. Lymphadenopathy: She has no cervical or supraclavicular adenopathy Cardiovascular: Normal rate, regular rhythm Pulmonary/Chest: No respiratory distress. Abdominal: Soft. No abdominal distension. She has mild tenderness with palpation of lower a bdomen. No masses palpated and no hepatomegaly. No organomegaly. No abdominal pulsatile mass noted. Surgical site is clean and dry. Musculoskeletal: Normal range of motion. No evidence of arthritis. Extremities: No edema, cyanosis or clubbing. Neurological: She is alert and oriented. No muscle weakness and normal gait. VASCULAR: Palpable femoral pulse bilaterally and palpable dorsalis pedis pulses bilaterally . Palpable bilateral radial and brachial pulses. DATA CBC: Lab Results Component Value Date WBC 15.37 (H) 02/04/2019 RBC 3.23 (L) 02/04/2019 HGB 9.8 (L) 02/04/2019 HCT 28.8 (L) 02/04/2019 MCV 89.3 02/04/2019 MCH 30.2 02/04/2019 MCHC 33.8 02/04/2019 RDW 45.5 02/04/2019 PLT 332 02/04/2019 MPV 7.5 02/04/2019 DIFFTYPE AUTOMATED 02/04/2019 BMP: Lab Results Component Value Date NA 142 02/04/2019 K 4.0 2019 CL 102 02/04/2019 CO2 26 02/04/2019 ANIONGAP 17 02/04/2019 GLUF 87 02/04/2019 BUN 29 (H) 02/04/2019 CREATININE 12.15 (H) 02/04/2019 BCR 2 02/03/2019 CA 7.4 (L) 02/04/2019 CA 9.0 09/07/2017 EGFR 3 (L) 02/04/2019 PROBLEM LIST End stage renal disease Peritonitis s/p PD catheter removal ASSESSMENT & PLAN End stage renal disease / Peritonitis / Infected peritoneal dialysis catheter - The patien t is POD 1 and doing well from surgical standpoint. Incisional dressing is clean and dry. We will proceed with tunneled hemodialysis catheter placement today. Risks of surgery include bleeding, infection, injury to nerve, pulmonary embolism, and . She understands these r isks and benefits of the procedure and wishes to proceed. She has been NPO since midnight. S igned consent obtained. We will proceed with peritoneal dialysis catheter removal today at [facility] Operating Room. Moderate Sedation Presedation Assessment completed per Dr. Pederson. ASA Classification: ASA 4: Patient with a severe systemic disease that is a constant threa t to life Mallampati Classification: 1: Visibility of hard and soft palate, upper portion of tonsils and uvula Code Status: Full Code ARLYN Brock MD 2019 onversion Transaction, Provider Unknown - 2019 1:39 AM PDTFormatting of this note might be different from t he original. Nurse Progress Note by Marixa Terrazas RN at 02/05/19138 Author: Marixa Terrazas RN Service: (none) Author Type: Registered Nurse Filed: 02/05/19 0404 Date of Service: 02/05/19138 Status: Signed Power Wood Sawyer: Marixa Terrazas RN (Registered Nurse) BP's soft 90's systolic, pt denies dizziness, Tmax 99.2, all other VSS. Pt still having so me abdominal pain and nausea. Incision site remains C/D/I. Potassium replaced per protocol , re-draw showed potassium at 4. Pt NPO at midnight in preparation for tunneled dialysis ca theter placement. No other changes from shift assessment. End of shift review and 24 hour c morrell check completed. Marixa Terrazas RN onver patric Transaction, Provider Unknown - 02/04/2019 6:47 PM PDT Nurse Progress Note by Zabrina Rubio RN at 02/04/191846 Author: Zabrina Rubio RN Service: (none) Author Type: Registered Nurse Filed: 02/04/191849 Date of Service: 02/04/191846 Status: Addendum Power Wood Sawyer: Zarbina Rubio RN (Registered Nurse) Related Notes: Original Note by Zabrina Rubio RN (Registered Nurse) filed at 02/04/19 18 49 Pt struggled with nausea and pain most of shift until audrey for removal of peritoneal dialysi s catheter around 1500. Pt tolerated procedure well. Pt will be NPO at midnight in preparati on for tunneled HD catheter placement tomorrow. Pt to have US for mapping in the morning george or to procedure. No other acute changes this shift. VSS End of shift chart check complete Barrington Gandara MD - 02/04/2019 2:33 PM PDTFormatting of this note might be different from the ave ginal. Progress Notes by Alyce Sparks MD at 02/04/19 1433 Author: Alyce Sparks MD Service: Hospitalist Author Type: Physician Filed: 02/04/19 190 Date of Service: 02/04/19 1433 Status: Signed Power Wood Sawyer: Alyce Sparks MD (Physician) [facility]: Hospitalist Progress Note Hospital Day: LOS: 3 days SUBJECTIVE Patient Summary: Ms. Oconnor is a 38 yr old man with lady with HTN, GERD with esophagitis, hx of diverticuli tis and ESRD on CAPD, with recurrent culture negative bacterial peritonitis x3 presented to the ED on 02/01/19 at [facility] for abdominal pain, nausea, vomiting and diarrhea, transferred to [facility] for further management. She was afebrile but hypotensive on presentation. Her labs showed leukocytosis with bandemia. PD fluid analysis however showed w bc of 622 with 48% segs. She had elevated procalcitonin. ID has been consulted and currently on IP antibiotic. Removal of PD catheter was discussed with the patient. She was initially upset but later on agreed. Patient was referred to vascular surgery and had her PD cath rem dom on 02/04/19. She is planned for tunneled catheter placement tomorrow. Events Overnight: Patient was seen today, had no complaint now, still with abdominal pain. Scheduled Medications cefTAZidime 1 g Intravenous Q24H famotidine 20 mg Oral Daily Or famotidine 20 mg Intravenous Daily heparin (porcine) 5000 unit/0.5mL 5,000 Units Subcutaneous 2 times per day ondansetron 4 mg Oral Once pantoprazole 40 mg Oral QAM AC scopolamine 1 patch Transdermal Once sevelamer 800 mg Oral TID WC sodium chloride (PF) 10 mL Intravenous Q8H traZODone 100 mg Oral Nightly Continuous Infusions dextrose PRN Medications acetaminophen OR acetaminophen, dextrose, dextrose, dextrose, fentaNYL, glucagon, gluca erica, HYDROcodone-acetaminophen OR HYDROcodone-acetaminophen, polyethylene glycol, potass ium chloride OR potassium chloride OR potassium chloride, promethazine OBJECTIVE Vital Signs: BP 101/60 (BP Location: Left upper arm) | Pulse 79 | Temp 99 F (37.2 C) (Oral) | Res p 18 | Ht 1.575 m (5' 2") | Wt 84.4 kg (186 lb) | SpO2 100% | ? No | BMI 3 4.02 kg/m Patient Vitals for the past 24 hrs: BP Temp Temp src Pulse Resp SpO2 Weight 02/04/19 1159 101/60 99 F (37.2 C) Oral 79 18 100 % - 02/04/19 0717 - 98.2 F (36.8 C) Oral 66 18 100 % - 02/04/19 0416 111/69 98.8 F (37.1 C) Oral 87 17 99 % 84.4 kg (186 lb) 02/04/19 0001 99/63 98.8 F (37.1 C) Oral 71 16 100 % - 02/03/19 1923 107/63 98.7 F (37.1 C) Oral 68 16 100 % - 02/03/19 1630 - 98.5 F (36.9 C) Oral 62 16 - 84 kg (185 lb 3.2 oz) Intake/Output Summary (Last 24 hours) at 02/04/19 1433 Last data filed at 02/04/19 0717 Gross per 24 hour Intake 81213.5 ml Output 44166 ml Net -115.5 ml Physical Exam Constitutional: She is oriented to person, place, and time. Obese lady, not in any respiratory distress HENT: Head: Normocephalic and atraumatic. Mouth/Throat: Oropharynx is clear and moist. Eyes: Pupils are equal, round, and reactive to light. Conjunctivae are normal. Neck: Normal range of motion. No JVD present. Cardiovascular: Normal rate and regular rhythm. No murmur heard. Pulmonary/Chest: Effort normal and breath sounds normal. She has no wheezes. She has no ral es. Abdominal: Soft. Bowel sounds are normal. There is no tenderness. Musculoskeletal: She exhibits no edema. Lymphadenopathy: She has no cervical adenopathy. Neurological: She is alert and oriented to person, place, and time. No cranial nerve defici t. Skin: Skin is warm. Psychiatric: Mood and affect normal. DATA CBC: Lab Results Component Value Date WBC 15.37 (H) 02/04/2019 RBC 3.23 (L) 02/04/2019 HGB 9.8 (L) 02/04/2019 HCT 28.8 (L) 02/04/2019 MCV 89.3 02/04/2019 MCH 30.2 02/04/2019 MCHC 33.8 02/04/2019 RDW 45.5 02/04/2019 PLT 332 02/04/2019 MPV 7.5 02/04/2019 DIFFTYPE AUTOMATED 02/04/2019 CMP: Lab Results Component Value Date NA 142 02/04/2019 K 2.9 (L) 02/04/2019 CL 102 02/04/2019 CO2 26 02/04/2019 ANIONGAP 17 02/04/2019 GLUF 87 02/04/2019 BUN 29 (H) 02/04/2019 CREATININE 12.15 (H) 02/04/2019 BCR 2 02/03/2019 CA 7.4 (L) 02/04/2019 CA 9.0 09/07/2017 PROT 5.5 (L) 02/03/2019 ALB 2.9 (L) 02/04/2019 GLOB 3.7 02/03/2019 BILITOT 0.2 02/03/2019 ALP 69 02/03/2019 AST 7 (L) 02/03/2019 ALT 12 02/03/2019 EGFR 3 (L) 02/04/2019 IMAGES Us Abdomen Limited Result Date: 02/01/2019 1. Gallbladder and common bile duct are normal. 2. No acute abnormality of the liver. 3. No hydronephrosis of the right kidney. Signed by: Omar Cervantes Sign Date/Time: 02/01/2019 4:36 PM Us [facility] Feather Trimmer Pelvis Transabd/endovaginal Result Date: 02/01/2019 1. Moderate free fluid in the pelvis likely related to known peritoneal dialysis catheter. Correlate clinically. 2. Hyperechoic enlarged right ovary with hyperemia and complex cystic structures. This is abnormal, and similar in size compared with 12/24/2018. This raises co ncern for ovarian mass. Enhanced MRI may help in further evaluation. 3. Complex cyst in the left ovary. Signed by: Cedric Smalls Sign Date/Time: 02/01/2019 11:09 AM PROBLEM LIST Principal Problem: SIRS (systemic inflammatory response syndrome) (HCC) Active Problems: Gastroenteritis End-stage renal disease (HCC) Prolonged Q-T interval on ECG Cyst of right ovary ASSESSMENT & PLAN PD peritonitis PD fluid culture negative Blood cultures negative ID following, on IP ceftazidime and vancomycin, will need to change route of administration ; defer to ID Removal of PD catheter 02/04/19 ESRD To transition to HD For tunneled catheter placement in am Defer to nephrology Continue P binder Hypokalemia Careful repletion Defer to nephrology HTN Noted BP readings Off meds Anemia of ESRD Defer to nephrology regarding EPO Prolonged QTc Correct hypokalemia DVT prophylaxis with heparin Disposition: Pending Code Status: Full Code Alyce Sparks MD 02/04/2019 2:33 PM onversion Transaction , Provider Unknown - 02/04/2019 11:23 AM PDT Pharmacy Note by Torrie Whelan RPH at 02/04/19 1123 Author: Torrie Whelan RPH Service: Pharmacy Author Type: Pharmacist Filed: 02/04/191122 Date of Service: 02/04/191122 Status: Signed Power Wood Sawyer: Torrie Whelan RPH (Pharmacist) Discussed with Dr. Up and now that PD catheter is out will transition to HD dosing of c eftazidime Discontinued PD ceftazidime order and will start ceftazidime 1 gm every 24 hours this eveni ng Patient is planned to undergo tunneled cath placement tomorrow (02/05) afternoon but unsure if HD will start tomorrow or not Pharmacy to monitor administration Ceftazidime can be given daily with HD but should be administered after dialysis on dialysi s days ID also requested that another random level of vancomycin be ordered for tomorrow with AM l abs to assess vanco level prior to HD starting Torrie Oglesby PharmD Alonzo Cool MD - 02/04/2019 11:21 AM PDTFormatting of this note might be differe nt from the original. Progress Notes by Alonzo Correa MD at 02/04/19 1121 Author: Alonzo Correa MD Service: Infectious Disease Author Type: Physic uma Filed: 02/04/19 1638 Date of Service: 02/04/19 1121 Status: Signed Power Wood Sawyer: Alonzo Correa MD (Physician) [facility]: Infectious Diseases Progress Note Hospital Day: LOS: 3 days Post-Op Day: * No surgery date entered * CC: Follow up on peritonitis SUBJECTIVE/OVERNIGHT EVENTS The patient will have peritoneal dialysis catheter removed later today. The patient is afe brile, with persistent leukocytosis, and abdominal pain. The patient is tearful and anxious about hemodialysis. REVIEW OF SYSTEMS GI: denies diarrhea, Constitutional: denies fever and chills and Integumentary: denies skin rash MEDICATIONS: ceftAZIDime (FORTAZ) inj syringe (peritoneal dialysis) 2,000 mg Intraperitoneal QPM famotidine 20 mg Oral Daily Or famotidine 20 mg Intravenous Daily heparin (porcine) 5000 unit/0.5mL 5,000 Units Subcutaneous 2 times per day ondansetron 4 mg Oral Once pantoprazole 40 mg Oral QAM AC scopolamine 1 patch Transdermal Once sevelamer 800 mg Oral TID WC sodium chloride (PF) 10 mL Intravenous Q8H traZODone 100 mg Oral Nightly dextrose PRN Medications acetaminophen OR acetaminophen, dextrose, dextrose, dextrose, fentaNYL, glucagon, gluca erica, HYDROcodone-acetaminophen OR HYDROcodone-acetaminophen, polyethylene glycol, promet hazine PHYSICAL EXAM Vital Signs: BP 111/69 (BP Location: Right upper arm) | Pulse 66 | Temp 98.2 F (36.8 C) (Oral) | Resp 18 | Ht 1.575 m (5' 2") | Wt 84.4 kg (186 lb) | SpO2 100% | ? No | BM I 34.02 kg/m Temp (24hrs), Av.7 F (37.1 C), Min:98.2 F (36.8 C), Max:99 F (37.2 C) General Appearance: Alert, cooperative, no distress and obese Head: Normocephalic, without obvious abnormality, atraumatic. Lips, mucosa, and tongue normal; dentition normal; no thrush present. Eyes: PERRL, conjunctiva/corneas clear, EOM's intact. Throat: Oropharynx without exudates. Neck: Supple, symmetrical, trachea midline, no adenopathy; thyroid: no enlargement/tenderness/nodules; no carotid bruit or JVD Back: Symmetric, no curvature, ROM normal, no CVA tenderness Lungs: Clear to auscultation bilaterally, respirations unlabored Chest Wall: No tenderness or deformity Heart: Regular rate and rhythm, S1 and S2 normal, no murmur noted, no rub or gallop Abdomen: Soft, painful to palpation mesogastrium, bowel sounds active all four quadrants , no masses, no organomegaly, PD catheter appears intact. Extremities: Extremities normal, atraumatic, no cyanosis or edema Pulses: 2+ and symmetric all extremities Skin: Skin color, texture, turgor normal, no rashes or lesions Lymph nodes: Cervical, supraclavicular, and axillary nodes normal Neurologic: normal without focal findings, mental status, speech normal, alert and oriented x3, JOSE ELIAS and reflexes normal and symmetric Venous access: none No signs of infection. LABS: All labs reviewed. CBC: Lab Results Component Value Date WBC 15.37 (H) 02/04/2019 RBC 3.23 (L) 02/04/2019 HGB 9.8 (L) 02/04/2019 HCT 28.8 (L) 02/04/2019 MCV 89.3 02/04/2019 MCH 30.2 02/04/2019 MCHC 33.8 02/04/2019 RDW 45.5 02/04/2019 PLT 332 02/04/2019 MPV 7.5 02/04/2019 DIFFTYPE AUTOMATED 02/04/2019 CMP: Lab Results Component Value Date NA 142 02/04/2019 K 2.9 (L) 02/04/2019 CL 102 02/04/2019 CO2 26 02/04/2019 ANIONGAP 17 02/04/2019 GLUF 87 02/04/2019 BUN 29 (H) 02/04/2019 CREATININE 12.15 (H) 02/04/2019 BCR 2 02/03/2019 CA 7.4 (L) 02/04/2019 CA 9.0 09/07/2017 PROT 5.5 (L) 02/03/2019 ALB 2.9 (L) 02/04/2019 GLOB 3.7 02/03/2019 BILITOT 0.2 02/03/2019 ALP 69 02/03/2019 AST 7 (L) 02/03/2019 ALT 12 02/03/2019 EGFR 3 (L) 02/04/2019 MICROBIOLOGY Results Procedure Component Value Units Date/Time Fluid culture w/gram stain [[id number]] Collected: 02/01/19 0751 Specimen: Body Fluid from Peritoneal Fluid Updated: 02/04/19 0711 Specimen Description PERITONEAL FLUID GRAM STAIN 1+ GRAM STAIN WBC'S SEEN GRAM STAIN NO ORGANISMS SEEN CULTURE NO GROWTH 3 DAYS Blood Culture Set 2 [[id number]] Collected: 02/01/19316 Specimen: Blood from Blood Updated: 02/02/19 1335 Specimen Description BLOOD CULTURE NO GROWTH AT THIS TIME Blood Culture Set 1 [[id number]] Collected: 02/01/19316 Specimen: Blood from Blood Updated: 02/02/19 1335 Specimen Description BLOOD CULTURE NO GROWTH AT THIS TIME IMAGING Reviewed images of : No new images for review My interpretation: ASSESSMENT & PLAN The patient is a 38 y.o.-year-old female with the following problems: Principal Problem: SIRS (systemic inflammatory response syndrome) (HCC) Active Problems: Gastroenteritis End-stage renal disease (HCC) Prolonged Q-T interval on ECG Cyst of right ovary 1. Recurrent peritoneal dialysis - associated peritonitis 2. Leukocytosis sec to #1 3. ESRD 4. Mild elevation of procalcitonin, expected in ESRD. Peritoneal drain to be removed today. Tonight start intravenous ceftazidime 1 g IV daily g iven at night, continue to monitor vancomycin levels, next on Friday. 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 Fluid culture is being held for 10 days. So far day #5 of antibiotic therapy. Discussed with Dr. Bridger Up MD, MPH Infectious Diseases 02/04/2019 onvers ion Transaction, Provider Unknown - 02/04/2019 9:11 AM PDT Nurse Progress Note by Zabrina Rubio RN at 02/04/19910 Author: Zabrina Rubio RN Service: (none) Author Type: Registered Nurse Filed: 02/04/19911 Date of Service: 02/04/19910 Status: Signed Power Wood Sawyer: Zabrina Rubio RN (Registered Nurse) Spoke to [place] Pt will have u/s for mapping tomorrow morning and tunneled cath fannie l be place tomorrow afternoon. onver patric Transaction, Provider Unknown - 02/04/2019 4:04 AM PDT Nurse Progress Note by Marixa Terrazas RN at 02/04/19403 Author: Marixa Terrazas RN Service: (none) Author Type: Registered Nurse Filed: 02/04/19 0525 Date of Service: 02/04/19403 Status: Signed Power Wood Sawyer: Marixa Terrazas RN (Registered Nurse) BP's 90-100 systolic, all other VSS. Pt c/o nausea and abdominal pain, medicated per JAN. PD on throughout the night, PD catheter site C/D/I. Pt NPO at midnight in preparation for s urgery to have PD catheter removed. No other changes from shift assessment. End of shift re view and 24 hour chart check completed. Marixa Terrazas RN onver patric Transaction, Provider Unknown - 02/03/2019 2:15 PM PDT Case Management by Lilo Iqbal RN at 02/03/19 1415 Author: Lilo Iqbal RN Service: (none) Author Type: Registered Nurse Filed: 02/03/19 1417 Date of Service: 02/03/19 141 Status: Signed Power Wood Sawyer: Lilo Iqbal RN (Registered Nurse) CM attended morning rounds. Per MD pt not medically ready for discharge today. Pt scheduled to have PD cath removed and HD CVC placed today. CM will continue to follow for discharge garfield crowe. Jamar Ralph MD - 02/03/2019 12:17 PM PDTFormatting of this note might be different from the or iginal. Progress Notes by Jamar Montoya MD at 02/03/19 1217 Author: Jamar Montoya MD Service: Hospitalist Author Type: Physician Filed: 02/03/19 1536 Date of Service: 02/03/197 Status: Addendum Power Wood Sawyer: Jamar Montoya MD (Physician) Related Notes: Original Note by Jamar Montoya MD (Physician) filed at 02/03/19 1533 [facility]: Hospitalist Progress Note Hospital Day: LOS: 2 days SUBJECTIVE Patient Summary: 38-year-old female with history of end-stage renal disease on perito aquilino dialysis, reflux disease, hypertension with recent admission for bacterial peritonitis 3 followed by another admission for diverticulitis who completed antibiotic course is pres enting now with abdominal pain and leukocytosis. Peritoneal fluid analysis showed nucleated cells of 622, 48 percent neutrophils. Her pro-calcitonin is elevated. Infectious disease was consulted. Patient initially started on Zosyn and received 1 dose of IV vancomycin. Antibio tic was switched to ceftazidime intraperitoneally. Events Overnight: 02/02/2019 Seen and examined patient. Over all, abdominal pain is much improved. Tolerating po. No fevers or chills. T-max of 99.2. White count 13.74. 02/03/2019 Seen and examined patient. She was upset upon hearing about transitioning to hem odialysis although in the end agreed to it. No new complaints. Tmax 99.2F. WBC 13.61. Scheduled Medications ceftAZIDime (FORTAZ) inj syringe (peritoneal dialysis) 2,000 mg Intraperitoneal QPM famotidine 20 mg Oral Daily Or famotidine 20 mg Intravenous Daily heparin (porcine) 5000 unit/0.5mL 5,000 Units Subcutaneous 2 times per day ondansetron 4 mg Oral Once pantoprazole 40 mg Oral QAM AC sevelamer 800 mg Oral TID WC sodium chloride (PF) 10 mL Intravenous Q8H traZODone 100 mg Oral Nightly Continuous Infusions dextrose PRN Medications acetaminophen OR acetaminophen, dextrose, dextrose, dextrose, glucagon, glucagon, HYDRO codone-acetaminophen OR HYDROcodone-acetaminophen, polyethylene glycol, promethazine OBJECTIVE Vital Signs: Vitals: 02/02/19 2338 02/03/19 0412 02/03/19 0720 02/03/19 1152 BP: 101/59 99/57 104/62 118/63 BP Location: Right upper arm Right upper arm Right upper arm Right upper arm Pulse: 71 66 67 71 Resp: 18 16 16 16 Temp: 98.8 F (37.1 C) 98.6 F (37 C) 98.5 F (36.9 C) 98.6 F (37 C) TempSrc: Oral Oral Oral Oral SpO2: 97% 97% 100% 100% Weight: 82.7 kg (182 lb 6.4 oz) Height: Physical Exam General appearance: alert, appears stated age and cooperative. Mildly obese, no distress. V alaina interactive. Coherent. Head: Normocephalic, without obvious abnormality, atraumatic Neck: no adenopathy, no carotid bruit, no JVD, supple, symmetrical, trachea midline and thy roid not enlarged, symmetric, no tenderness/mass/nodules Lungs: clear to auscultation bilaterally Heart: regular rate and rhythm, S1, S2 normal, no murmur, click, rub or gallop Abdomen: soft, mild tenderness only on deep palpation; bowel sounds normal; no masses, no organomegaly. Negative peritoneal signs. Musculoskeletal: There is no redness, warmth, or swelling of the joints. Full range of mo tion noted. Motor strength is 5 out of 5 all extremities bilaterally. Tone is normal. Extremities: extremities normal, atraumatic, no cyanosis or edema Pulses: 2+ and symmetric Skin: Skin color, texture, turgor normal. No rashes or lesions Lymph nodes: Cervical, supraclavicular, and axillary nodes normal. DATA, personally reviewed Recent Labs Lab 02/03/19 0600 02/02/19 0540 02/01/19 0318 WBC 13.61* 13.74* 21.67* HGB 9.6* 10.2* 9.8* HCT 28.9* 31.5* 29.9* PLT 326 401* 355 Recent Labs Lab 02/03/19 0600 02/02/19 0540 02/01/19 0318 NA 139 140 141 K 3.0* 3.4* 3.6 CL 98* 101 103 CO2 25 27 BUN 30* 29* 25 CREATININE 12.8* 12.6* 11.53* PROT 5.5* 6.2* 5.7* BILITOT 0.2 0.3 <0.2 ALT 12 13 <7* AST 7* 12 11 Phosphorus: Lab Results Component Value Date PHOS 5.6 (H) 02/03/2019 Recent Labs Lab 02/03/19 0600 02/01/19 0318 MG 3.2* 3.0* Recent Labs Lab 02/01/19 1208 02/01/19 0718 TROPONINI <0.006 <0.006 Radiology, personally reviewed Us Abdomen Limited Result Date: 02/01/2019 1. Gallbladder and common bile duct are normal. 2. No acute abnormality of the liver. 3. No hydronephrosis of the right kidney. Signed by: Omar Cervantes Sign Date/Time: 02/01/2019 4:36 PM Us Shuttlecock Feather Trimmer Pelvis Transabd/endovaginal Result Date: 02/01/2019 1. Moderate free fluid in the pelvis likely related to known peritoneal dialysis catheter. Correlate clinically. 2. Hyperechoic enlarged right ovary with hyperemia and complex cystic structures. This is abnormal, and similar in size compared with 12/24/2018. This raises co ncern for ovarian mass. Enhanced MRI may help in further evaluation. 3. Complex cyst in the left ovary. Signed by: Cedric Smalls Sign Date/Time: 02/01/2019 11:09 AM PROBLEM LIST Principal Problem: SIRS (systemic inflammatory response syndrome) (HCC) Active Problems: Gastroenteritis End-stage renal disease (HCC) Prolonged Q-T interval on ECG Hypertension ASSESSMENT & PLAN SIRS related to peritoneal dialysis peritonitis Patient had hypotension, leukocytosis and bandemia but normal lactate and no fever on admis patric. Prior blood and fluid cultures negative. Peritoneal fluid analysis showed increase in nucleated cells. Appreciate input from infectious disease, Dr. Up. Patient is currently on ceftaz and an intraoperative coronary. No growth so far from blood cultures and final peritoneal fluid cultures. Clinically much improved. Discussed with the patient potential of switch from peritoneal dialysis to hemodialysis. She was upset about transitioning to HD but later agreed. Plan for removal of PD and placement of temporary HD access today. Will need AV fistula/graft down the line. Discussed with nephrology. Gastroenteritis Abdominal exam today is benign. Diarrhea seems to have improved. End-stage renal disease Appreciate input from nephrology who is managing the patient's peritoneal dialysis. Prolonged QTC Avoid QTC prolonging agents. Telemetry bed. Replace potassium according to dialysis orders. Hypertension Blood pressures are actually marginally low off any medications. Continue to monitor. Hyperphosphatemia Continue phosphate binders. Hypokalemia Will defer K management to nephrology in a dialysis patient. DVT prophylaxis: In place. GI prophylaxis: In place. Disposition: Inpatient. Code Status: Full Code Dictation and rod puller or software, [employer]Life, used which may contain error for similar s ounding words even after review. Personal communication requested for any clarification. JAMAR MONTOYA MD 02/03/2019 12:17 PM Alonzo Cool MD - 02/03/2019 8:28 AM PDTFormatting of this note might be different from the ave maira. Progress Notes by Alonzo Correa MD at 02/03/19827 Author: Alonzo Correa MD Service: Infectious Disease Author Type: Physic uma Filed: 02/03/192133 Date of Service: 02/03/19827 Status: Signed Power Wood Sawyer: Alonzo Correa MD (Physician) [facility]: Infectious Diseases Progress Note Hospital Day: LOS: 2 days Post-Op Day: * No surgery date entered * CC: Follow up on peritoneal dialysis catheter associated peritonitis SUBJECTIVE/OVERNIGHT EVENTS The patient has been afebrile, with decrease in her abdominal pain. The patient white bloo d cell count has trended down. The patient has discussed with auto overhauler regarding removal of her peritoneal dialysis ca theter and transition to hemodialysis. She has not decided yet. The patient is tolerating the intraperitoneal antibiotics. Vancomycin levels are elevated after her initial loading dose of IV vancomycin. REVIEW OF SYSTEMS GI: denies diarrhea, Constitutional: denies fever and chills and Integumentary: denies skin rash MEDICATIONS: ceftAZIDime (FORTAZ) inj syringe (peritoneal dialysis) 2,000 mg Intraperitoneal QPM famotidine 20 mg Oral Daily Or famotidine 20 mg Intravenous Daily heparin (porcine) 5000 unit/0.5mL 5,000 Units Subcutaneous 2 times per day ondansetron 4 mg Oral Once pantoprazole 40 mg Oral QAM AC sevelamer 800 mg Oral TID WC sodium chloride (PF) 10 mL Intravenous Q8H traZODone 100 mg Oral Nightly dextrose PRN Medications acetaminophen OR acetaminophen, dextrose, dextrose, dextrose, glucagon, glucagon, HYDRO codone-acetaminophen OR HYDROcodone-acetaminophen, polyethylene glycol, promethazine PHYSICAL EXAM Vital Signs: BP 107/63 (BP Location: Right upper arm) | Pulse 68 | Temp 98.7 F (37.1 C) (Oral) | Resp 16 | Ht 1.575 m (5' 2") | Wt 84 kg (185 lb 3.2 oz) | SpO2 100% | ? No | BMI 33.87 kg/m Temp (24hrs), Av.6 F (37 C), Min:98.5 F (36.9 C), Max:98.8 F (37.1 C) General Appearance: Alert, cooperative, no distress and obese Head: Normocephalic, without obvious abnormality, atraumatic. Lips, mucosa, and tongue normal; dentition normal; no thrush present. Eyes: PERRL, conjunctiva/corneas clear, EOM's intact. Throat: Oropharynx without exudates. Neck: Supple, symmetrical, trachea midline, no adenopathy; thyroid: no enlargement/tenderness/nodules; no carotid bruit or JVD Back: Symmetric, no curvature, ROM normal, no CVA tenderness Lungs: Clear to auscultation bilaterally, respirations unlabored Chest Wall: No tenderness or deformity Heart: Regular rate and rhythm, S1 and S2 normal, no murmur noted, no rub or gallop Abdomen: Soft, painful to palpation mesogastrium, bowel sounds active all four quadrants , no masses, no organomegaly, PD catheter appears intact. Extremities: Extremities normal, atraumatic, no cyanosis or edema Pulses: 2+ and symmetric all extremities Skin: Skin color, texture, turgor normal, no rashes or lesions Lymph nodes: Cervical, supraclavicular, and axillary nodes normal Neurologic: normal without focal findings, mental status, speech normal, alert and oriented x3, JOSE ELIAS and reflexes normal and symmetric Venous access: none No signs of infection. LABS: All labs reviewed. CBC: Lab Results Component Value Date WBC 13.61 (H) 02/03/2019 RBC 3.19 (L) 02/03/2019 HGB 9.6 (L) 02/03/2019 HCT 28.9 (L) 02/03/2019 MCV 90.5 02/03/2019 MCH 30.1 02/03/2019 MCHC 33.2 02/03/2019 RDW 47.7 02/03/2019 PLT 326 02/03/2019 MPV 8.0 02/03/2019 DIFFTYPE MANUAL 02/03/2019 CMP: Lab Results Component Value Date NA 139 02/03/2019 K 3.0 (L) 02/03/2019 CL 98 (L) 02/03/2019 CO2 27 02/03/2019 ANIONGAP 17 02/03/2019 GLUF 91 02/03/2019 BUN 30 (H) 02/03/2019 CREATININE 12.8 (H) 02/03/2019 BCR 2 02/03/2019 CA 7.5 (L) 02/03/2019 CA 9.0 09/07/2017 PROT 5.5 (L) 02/03/2019 ALB 1.8 (L) 02/03/2019 GLOB 3.7 02/03/2019 BILITOT 0.2 02/03/2019 ALP 69 02/03/2019 AST 7 (L) 02/03/2019 ALT 12 02/03/2019 EGFR 3 (L) 02/03/2019 MICROBIOLOGY Results Procedure Component Value Units Date/Time Fluid culture w/gram stain [[id number]] Collected: 02/01/19 0751 Specimen: Body Fluid from Peritoneal Fluid Updated: 02/03/19 1026 Specimen Description PERITONEAL FLUID GRAM STAIN 1+ GRAM STAIN WBC'S SEEN GRAM STAIN NO ORGANISMS SEEN CULTURE NO GROWTH 2 DAYS Blood Culture Set 2 [[id number]] Collected: 02/01/19 0317 Specimen: Blood from Blood Updated: 02/02/19 1335 Specimen Description BLOOD CULTURE NO GROWTH AT THIS TIME Blood Culture Set 1 [[id number]] Collected: 02/01/19 031 Specimen: Blood from Blood Updated: 02/02/19 1335 Specimen Description BLOOD CULTURE NO GROWTH AT THIS TIME Body fluid cell count [[id number]] Collected: 02/01/19 0753 Specimen: Other from Peritoneal Fluid Updated: 02/01/19 0907 FLUID TYPE PERITONEAL FLUID COLOR YELLOW APPEARANCE HAZY RBC'S <10,000 /mm3 TOTAL NUCLEATED CELLS 622 /mm3 NEUTROPHILS 48 % LYMPHOCYTES 5 % MONOCYTES/MACROPHAGES 46 % Mesothelial Cells 1 % CELLS COUNTED 100 MRSA by PCR [[id number]] Collected: 02/01/19 0328 Specimen: Nasopharyngeal from Nares(Nose) Updated: 02/01/19 0824 SOURCE NARES(NOSE) MRSA PCR NEGATIVE IMAGING Reviewed images of : No new images for review ASSESSMENT & PLAN The patient is a 38 y.o.-year-old female with the following problems: Principal Problem: SIRS (systemic inflammatory response syndrome) (HCC) Active Problems: Gastroenteritis End-stage renal disease (HCC) Prolonged Q-T interval on ECG Cyst of right ovary 1. Recurrent peritoneal dialysis - associated peritonitis 2. Leukocytosis sec to #1 3. ESRD 4. Mild elevation of procalcitonin, expected in ESRD. Continue intraperitoneal antibiotic therapy. IV Vancomycin loading dose will stick around for a while. Continue ceftazidime intraperitoneally at night, dwell time minimum 6 hours. Cultures no growth, rasing suspicion for fastidious organism. Will keep for 10 days. With her history of recurrent infections, nephrology and patient are having discussion for PD cath removal. I recommended potentially remove her PD catheter due to frequent infections and she refuses to have it removed. She refused vehemently to transition to hemodialysis as well. Once the peritoneal catheter has been removed and patient transitions to hemodialysis, we w ill change her treatment to intravenous antibiotic therapy. Recommend 2 weeks of therapy for her peritonitis. Outpatient IP antibiotics are preferred. Discussed with Dr. Montoya and Dr. Chi. Discussed also with clinical pharmacist and microbiology lab. Alonzo Up MD, MPH Infectious Diseases 02/03/2019 onvers ion Transaction, Provider Unknown - 02/03/2019 5:09 AM PDT Nurse Progress Note by Samira García RN at 02/03/19508 Author: Samira García RN Service: (none) Author Type: Registered Nurse Filed: 02/03/19 05 Date of Service: 02/03/19508 Status: Signed Power Wood Sawyer: Samira García RN (Registered Nurse) Pt had an uneventful night. Medicated for pain x1. End of shift audit complete. Alonzo Cool MD - 02/02/2019 8:07 PM PDTFormatting of this note might be differe nt from the original. Progress Notes by Alonzo Correa MD at 02/02/192006 Author: Alonzo Correa MD Service: Infectious Disease Author Type: Physic uma Filed: 02/02/192010 Date of Service: 02/02/192006 Status: Signed Power Wood Sawyer: Alonzo Correa MD (Physician) [facility]: Infectious Diseases Progress Note Hospital Day: LOS: 1 day Post-Op Day: * No surgery found * CC: Follow up on peritonitis SUBJECTIVE/OVERNIGHT EVENTS Leukocytosis trending down, patient afebrile. Tolerating intraperitoneal antibiotics. Patient discussed with nephrology today. Fluid cultures no growth so far. REVIEW OF SYSTEMS GI: denies diarrhea, Constitutional: denies fever and chills and Integumentary: denies skin rash MEDICATIONS: ceftAZIDime (FORTAZ) inj syringe (peritoneal dialysis) 2,000 mg Intraperitoneal QPM famotidine 20 mg Oral Daily Or famotidine 20 mg Intravenous Daily heparin (porcine) 5000 unit/0.5mL 5,000 Units Subcutaneous 2 times per day ondansetron 4 mg Oral Once pantoprazole 40 mg Oral QAM AC sevelamer 800 mg Oral TID WC sodium chloride (PF) 10 mL Intravenous Q8H traZODone 100 mg Oral Nightly dextrose PRN Medications acetaminophen OR acetaminophen, dextrose, dextrose, dextrose, glucagon, glucagon, HYDRO codone-acetaminophen OR HYDROcodone-acetaminophen, polyethylene glycol, promethazine PHYSICAL EXAM Vital Signs: BP 110/68 (BP Location: Right upper arm) | Pulse 62 | Temp 98.8 F (37.1 C) (Oral) | Resp 17 | Ht 1.575 m (5' 2") | Wt 81.3 kg (179 lb 3.2 oz) | SpO2 100% | ? N o | BMI 32.78 kg/m Temp (24hrs), Av.8 F (37.1 C), Min:98.2 F (36.8 C), Max:99.2 F (37.3 C) General Appearance: Alert, cooperative, no distress and obese Head: Normocephalic, without obvious abnormality, atraumatic. Lips, mucosa, and tongue normal; dentition normal; no thrush present. Eyes: PERRL, conjunctiva/corneas clear, EOM's intact. Throat: Oropharynx without exudates. Neck: Supple, symmetrical, trachea midline, no adenopathy; thyroid: no enlargement/tenderness/nodules; no carotid bruit or JVD Back: Symmetric, no curvature, ROM normal, no CVA tenderness Lungs: Clear to auscultation bilaterally, respirations unlabored Chest Wall: No tenderness or deformity Heart: Regular rate and rhythm, S1 and S2 normal, no murmur noted, no rub or gallop Abdomen: Soft, painful to palpation mesogastrium, bowel sounds active all four quadrants, no masses, no organomegaly, PD catheter appears intact. Extremities: Extremities normal, atraumatic, no cyanosis or edema Pulses: 2+ and symmetric all extremities Skin: Skin color, texture, turgor normal, no rashes or lesions Lymph nodes: Cervical, supraclavicular, and axillary nodes normal Neurologic: normal without focal findings, mental status, speech normal, alert and oriented x3, JOSE ELIAS and reflexes normal and symmetric Venous access: none No signs of infection. LABS: All labs reviewed. CBC: Lab Results Component Value Date WBC 13.74 (H) 02/02/2019 RBC 3.43 (L) 02/02/2019 HGB 10.2 (L) 02/02/2019 HCT 31.5 (L) 02/02/2019 MCV 91.8 02/02/2019 MCH 29.6 02/02/2019 MCHC 32.2 02/02/2019 RDW 48.1 02/02/2019 PLT 401 (H) 02/02/2019 MPV 8.4 02/02/2019 DIFFTYPE MANUAL 02/02/2019 CMP: Lab Results Component Value Date NA 140 02/02/2019 K 3.4 (L) 02/02/2019 CL 101 02/02/2019 CO2 25 02/02/2019 ANIONGAP 17 02/02/2019 GLUF 100 (H) 02/02/2019 BUN 29 (H) 02/02/2019 CREATININE 12.6 (H) 02/02/2019 BCR 2 02/02/2019 CA 8.0 (L) 02/02/2019 CA 9.0 09/07/2017 PROT 6.2 (L) 02/02/2019 ALB 2.0 (L) 02/02/2019 GLOB 4.2 02/02/2019 BILITOT 0.3 02/02/2019 ALP 79 02/02/2019 AST 12 02/02/2019 ALT 13 02/02/2019 EGFR 3 (L) 02/02/2019 MICROBIOLOGY Results Procedure Component Value Units Date/Time Fluid culture w/gram stain [[id number]] Collected: 02/01/19 075 Specimen: Body Fluid from Peritoneal Fluid Updated: 02/02/19 181 Specimen Description PERITONEAL FLUID GRAM STAIN 1+ GRAM STAIN WBC'S SEEN GRAM STAIN NO ORGANISMS SEEN CULTURE NO GROWTH AT THIS TIME Blood Culture Set 2 [[id number]] Collected: 02/01/19316 Specimen: Blood from Blood Updated: 02/02/19 133 Specimen Description BLOOD CULTURE NO GROWTH AT THIS TIME Blood Culture Set 1 [[id number]] Collected: 02/01/19316 Specimen: Blood from Blood Updated: 02/02/19 133 Specimen Description BLOOD CULTURE NO GROWTH AT THIS TIME Body fluid cell count [[id number]] Collected: 02/01/19 075 Specimen: Other from Peritoneal Fluid Updated: 02/01/19 0907 FLUID TYPE PERITONEAL FLUID COLOR YELLOW APPEARANCE HAZY RBC'S <10,000 /mm3 TOTAL NUCLEATED CELLS 622 /mm3 NEUTROPHILS 48 % LYMPHOCYTES 5 % MONOCYTES/MACROPHAGES 46 % Mesothelial Cells 1 % CELLS COUNTED 100 MRSA by PCR [[id number]] Collected: 02/01/19 0328 Specimen: Nasopharyngeal from Nares(Nose) Updated: 02/01/19823 SOURCE NARES(NOSE) MRSA PCR NEGATIVE IMAGING Reviewed images of : No new images for review ASSESSMENT & PLAN The patient is a 38 y.o.-year-old female with the following problems: Principal Problem: SIRS (systemic inflammatory response syndrome) (HCC) Active Problems: Gastroenteritis End-stage renal disease (HCC) Prolonged Q-T interval on ECG Cyst of right ovary 1. Recurrent peritoneal dialysis - associated peritonitis 2. Leukocytosis sec to #1 3. ESRD 4. Mild elevation of procalcitonin, expected in ESRD. Patient has had numerous episodes of peritonitis associated with her PD catheter. Just in t he last 3 months alone, she has been hospitalized monthly for this. Continue intraperitoneal antibiotic therapy. She already received a loading dose of vancomycin iv which will stick around for a while. Continue ceftazidime intraperitoneally at night, dwell time minimum 6 hours. Cultures no growth, rasing suspicion for fastidious organism. Will keep for 10 days. With her history of recurrent infections, nephrology and patient are having discussion for PD cath removal. I recommended potentially remove her PD catheter due to frequent infections and she refuses to have it removed. She refused vehemently to transition to hemodialysis as well. Recommend 2 weeks of therapy for her peritonitis. Outpatient IP antibiotics are preferred. Discussed with Dr. Montoya and Dr. Chi. Alonzo Up MD, MPH Infectious Diseases 02/02/2019 onvers ion Transaction, Provider Unknown - 02/02/2019 6:06 PM PDT Nurse Progress Note by Marixa Juarez RN at 02/02/191805 Author: Marixa Juarez RN Service: (none) Author Type: Registered Nurse Filed: 02/02/191826 Date of Service: 02/02/191805 Status: Signed Power Wood Sawyer: Marixa Juarez RN (Registered Nurse) Tmax this shift 99.2. Upon recheck, temp 98.9. Pt rested majority of shift. PRN phenergan given as ordered for nausea. Pt has had no valerio etite this shift. Pt encouraged to eat even a small snack, pt refused. No other acute changes from previous assessment. End of shift review complete. Marixa craig RN Jamar Ralph MD - 02/02/2019 12:47 PM PDTFormatting of this note might be different from the or iginal. Progress Notes by Jamar Montoya MD at 02/02/191246 Author: Jamar Montoya MD Service: Hospitalist Author Type: Physician Filed: 02/02/19 1906 Date of Service: 02/02/191246 Status: Signed Power Wood Sawyer: Jamar Montoya MD (Physician) [facility]: Hospitalist Progress Note Hospital Day: LOS: 1 day SUBJECTIVE Patient Summary: 38-year-old female with history of end-stage renal disease on perito aquilino dialysis, reflux disease, hypertension with recent admission for bacterial peritonitis 3 followed by another admission for diverticulitis who completed antibiotic course is pres enting now with abdominal pain and leukocytosis. Peritoneal fluid analysis showed nucleated cells of 622, 48 percent neutrophils. Her pro-calcitonin is elevated. Infectious disease was consulted. Patient initially started on Zosyn and received 1 dose of IV vancomycin. Antibio tic was switched to ceftazidime intraperitoneally. Events Overnight: Seen and examined patient. Over all, abdominal pain is much improve d. Tolerating po. No fevers or chills. T-max of 99.2. White count 13.74. Scheduled Medications ceftAZIDime (FORTAZ) inj syringe (peritoneal dialysis) 2,000 mg Intraperitoneal QPM famotidine 20 mg Oral Daily Or famotidine 20 mg Intravenous Daily heparin (porcine) 5000 unit/0.5mL 5,000 Units Subcutaneous 2 times per day ondansetron 4 mg Oral Once pantoprazole 40 mg Oral QAM AC sevelamer 800 mg Oral TID WC sodium chloride (PF) 10 mL Intravenous Q8H traZODone 100 mg Oral Nightly Continuous Infusions dextrose PRN Medications acetaminophen OR acetaminophen, dextrose, dextrose, dextrose, glucagon, glucagon, HYDRO codone-acetaminophen OR HYDROcodone-acetaminophen, polyethylene glycol, promethazine OBJECTIVE Vital Signs: Vitals: 02/02/19 0650 02/02/19 0700 02/02/19 0851 02/02/19 1133 BP: 102/60 102/60 105/66 BP Location: Right upper arm Right upper arm Pulse: 98 69 75 Resp: 18 16 16 Temp: 98.2 F (36.8 C) 98.6 F (37 C) 98.8 F (37.1 C) TempSrc: Oral Oral Oral SpO2: 98% 100% 98% 100% Weight: Height: Physical Exam General appearance: alert, appears stated age and cooperative. Mildly obese, no distress. V alaina interactive. Head: Normocephalic, without obvious abnormality, atraumatic Neck: no adenopathy, no carotid bruit, no JVD, supple, symmetrical, trachea midline and thy roid not enlarged, symmetric, no tenderness/mass/nodules Lungs: clear to auscultation bilaterally Heart: regular rate and rhythm, S1, S2 normal, no murmur, click, rub or gallop Abdomen: soft, mild tenderness on deep palpation; bowel sounds normal; no masses, no organ omegaly. Negative peritoneal signs. Musculoskeletal: There is no redness, warmth, or swelling of the joints. Full range of mo tion noted. Motor strength is 5 out of 5 all extremities bilaterally. Tone is normal. Extremities: extremities normal, atraumatic, no cyanosis or edema Pulses: 2+ and symmetric Skin: Skin color, texture, turgor normal. No rashes or lesions Lymph nodes: Cervical, supraclavicular, and axillary nodes normal. DATA, personally reviewed Recent Labs Lab 02/02/19 0540 02/01/19317 WBC 13.74* 21.67* HGB 10.2* 9.8* HCT 31.5* 29.9* PLT 401* 355 Recent Labs Lab 02/02/19 0540 02/01/19317 NA 140 141 K 3.4* 3.6 CL 101 103 CO2 25 27 BUN 29* 25 CREATININE 12.6* 11.53* PROT 6.2* 5.7* BILITOT 0.3 <0.2 ALT 13 <7* AST 12 11 Phosphorus: Lab Results Component Value Date PHOS 5.4 (H) 02/01/2019 Recent Labs Lab 02/01/19 0318 MG 3.0* Recent Labs Lab 02/01/19 1208 02/01/19 0718 TROPONINI <0.006 <0.006 Radiology, personally reviewed Us Abdomen Limited Result Date: 02/01/2019 1. Gallbladder and common bile duct are normal. 2. No acute abnormality of the liver. 3. No hydronephrosis of the right kidney. Signed by: Omar Cervantes Sign Date/Time: 02/01/2019 4:36 PM Us [place] Feather Trimmer Pelvis Transabd/endovaginal Result Date: 02/01/2019 1. Moderate free fluid in the pelvis likely related to known peritoneal dialysis catheter. Correlate clinically. 2. Hyperechoic enlarged right ovary with hyperemia and complex cystic structures. This is abnormal, and similar in size compared with 12/24/2018. This raises co ncern for ovarian mass. Enhanced MRI may help in further evaluation. 3. Complex cyst in the left ovary. Signed by: Cedric Smalls Sign Date/Time: 02/01/2019 11:09 AM PROBLEM LIST Principal Problem: SIRS (systemic inflammatory response syndrome) (HCC) Active Problems: Gastroenteritis End-stage renal disease (HCC) Prolonged Q-T interval on ECG Hypertension ASSESSMENT & PLAN SIRS related to peritoneal dialysis peritonitis Patient had hypotension, leukocytosis and bandemia but normal lactate and no fever on admis patric. Prior blood and fluid cultures negative. Peritoneal fluid analysis showed increasing nucleated cells. Appreciate input from infectious disease, Dr. Up. Patient is currently on ceftaz and an intraoperative coronary. Follow up blood cultures and final peritoneal fluid cultures. Clinically much improved. Discussed with the patient potential of switch from peritoneal dialysis to hemodialysis. Pe ritoneal catheter might be infected. She will think about this and make a decision later. Gastroenteritis Abdominal exam today is benign. Diarrhea seems to have improved. End-stage renal disease Appreciate input from nephrology who is managing the patient's peritoneal dialysis. Prolonged QTC Avoid QTC prolonging agents. Telemetry bed. Replace potassium according to dialysis orders. Hypertension Blood pressures are actually marginally low off any medications. Continue to monitor. Hyperphosphatemia Continue phosphate binders. DVT prophylaxis: In place. GI prophylaxis: In place. Disposition: Inpatient. Code Status: Full Code Dictation and rod puller or software, Dragon, used which may contain error for similar s ounding words even after review. Personal communication requested for any clarification. JAMAR MONTOYA MD 02/02/2019 12:47 PM onversion Transactio n, Provider Unknown - 02/02/2019 7:38 AM PDT Nurse Progress Note by Adonis Bonner RN at 02/02/19737 Author: Adonis Bonner RN Service: Nephrology Author Type: Registered Nurse Filed: 02/02/19738 Date of Service: 02/02/19737 Status: Signed Power Wood Sawyer: Adonis Bonner RN (Registered Nurse) UF 929 ml with peritoneal dialysis over night. onver patric Transaction, Provider Unknown - 02/02/2019 6:07 AM PDT Nurse Progress Note by Samira García RN at 02/02/19606 Author: Samira García RN Service: (none) Author Type: Registered Nurse Filed: 02/02/19606 Date of Service: 02/02/19606 Status: Signed Power Wood Sawyer: Samira García RN (Registered Nurse) Phenergan given x1. Lowest SBP 94. End of shift audit complete. onver patric Transaction, Provider Unknown - 02/01/2019 6:02 PM PDT Nurse Progress Note by Marixa Juarez RN at 02/01/191801 Author: Marixa Juarez RN Service: (none) Author Type: Registered Nurse Filed: 02/01/191803 Date of Service: 02/01/191801 Status: Signed Power Wood Sawyer: Marixa Juarez RN (Registered Nurse) VS stable throughout shift. Pt medicated for abdominal pain x1 and nausea x1. QTC 571, zo shaheen orders were discontinued. No other acute changes from previous assessment. End of shift review complete. Marixa craig, RN onver patric Transaction, Provider Unknown - 02/01/2019 3:54 PM PDT Pharmacy Note by Torrie Whelan RPH at 02/01/19 1554 Author: Torrie Whelan RPH Service: Pharmacy Author Type: Pharmacist Filed: 02/01/191553 Date of Service: 02/01/191553 Status: Signed Power Wood Sawyer: Torrie Whelan RPH (Pharmacist) Intraperitoneal Dialysis-Ceftazidime Peritoneal dialysis patient with suspected peritonitis Patient received vancomycin IV and zosyn IV earlier ID has been consulted and wished to proceed with ceftazidime but given by intraperitoneal r oute Spoke with nephrology and patient receives PD nightly Plan is to instill antibiotic in longest dwelling PD bag which is roughly 5 liters Clarified with ID that they would like to proceed with a 2000 mg dose Spoke with dialysis nurse who is familiar with adding antibiotic to dialysate bag Will prepare in a syringe nightly to be given to dialysis nurse who will proceed with addin g the antibiotic to planned longest dwelling bag Because patient received vancomycin earlier ID feels she is adequately covered for a few da ys Both ID and nephrology have requested that a vancomycin level be re-ordered even though van comycin has been discontinued at this time in order to allow for monitoring of vancomycin le adriana I have re-ordered level for Saturday 02/03 with AM labs Pharmacy to monitor that ceftazidime is ordered nightly and prepared in a syringe to be giv en by intraperitoneal route Torrie Whelan-PharmD onver patric Transaction, Provider Unknown - 02/01/2019 3:28 PM PDT Case Management by Lilo Iqbal RN at 02/01/19 1528 Author: Lilo Iqbal RN Service: (none) Author Type: Registered Nurse Filed: 02/01/19 1533 Date of Service: 02/01/19 1528 Status: Signed Power Wood Sawyer: Lilo Iqbal RN (Registered Nurse) 02/01/19 1500 Discharge Planning Evaluation Admitting Diagnosis SIRS Readmission Yes-within 30 days Reason for readmission abdominal pain and leukocytosis Last discharge disposition Home Needs met at last discharge Yes Picked up discharge Rx medications Yes Started prescribed DC meds Yes Followed up with primary or specialty provider Yes Understood discharge instructions Yes Assistance available Yes Concerns for meeting needs No Living Arrangements Spouse/significant other;Family members Support Systems Spouse/significant other;Family members Type of Residence Private residence House type House 2 story Steps to enter 1 Bathrooms on 1st Floor 1-Full Independent with ADL's Other (comment) (pt's assists with ADL's ) Independent with Mobility Yes Home Care Services No Caregiver after Discharge No Mental Status Oriented Prior functional status needs assist with ADL's, independent with mobility Anticipated Discharge Plan Post Acute Care Needs None at this time Plan communicated to patient/family Yes Resources Financial concerns No Transportation issues No Patient/Family concerns No Prescription Plan Yes Name of [facility] Previous home health equipment No Anticipated Disposition Facility Type Home Met with pt and discussed discharge planning, Pt is a 38 y.o., female who lives with her sp emmanuel Woodall #[phone] and her sister Lydia Palm #[phone] in a 2 story home with 1 st ep to enter. Pt was last discharged from [facility] on 01/09. Pt's spouse assists pt with ADL's. Pt is independent with mobility and uses no DME's, oxygen, or anticoagulation. Pt receives beba toneal dialysis through [facility]. Pt is a member of the [facility] and her contact there is Lorna #[phone]. Pt's CM through [employer] is Clarita #[phone]. Patient's PCP is: JUAN F SAMPSON Patient's insurance: Medicare/ [employer] Coverage concerns: no Medication coverage/concerns: no Rx Bedside Delivery: no Community resources utilized / needed: TBD Assistance in transportation: family to transport Identification of any specific education / training: no Barriers to Discharge / Alternative housing needed: none at this time Anticipated DCP: home Lilo Iqbal RN onver patric Armando, Provider Unknown - 02/01/2019 2:32 PM PDT Pharmacy Note by Torrie Whelan RPH at 02/01/19 143 Author: Torrie Whelan RPH Service: Pharmacy Author Type: Pharmacist Filed: 02/01/191433 Date of Service: 02/01/191431 Status: Signed Power Wood Sawyer: Torrie Whelan RPH (Pharmacist) Antimicrobial Stewardship Team Note De-Escalation Recommendation Patient: Ramona Ocnonor Attending: Vinh Harper MD Admission Date: [id number] Current Antimicrobial Medications: Anti-infectives Start Dose/Rate Route Frequency Ordered Stop 02/01/19 0613 vancomycin (VANCOCIN) 500 mg in sodium chloride (IV) 0.9 % 100 mL IVPB Ordering Provider: Tisha Vanegas RPH 500 mg 100 mL/hr over 60 Minutes Intravenous See Admin Instructions 02/01/19 0614 02/01/19 0613 vancomycin (VANCOCIN) 750 mg/250 mL IVPB Ordering Provider: Tisha Vanegas RPH 750 mg over 60 Minutes Intravenous See Admin Instructions 02/01/19 0614 02/01/19 0600 vancomycin (FIRVANQ) 25 mg/mL liquid 125 mg Ordering Provider: Karen Roque, DO 125 mg Oral 4 times per day 02/01/19 0348 02/01/19 0430 piperacillin-tazobactam (ZOSYN) IVPB 2.25 g Ordering Provider: Tisha Vanegas RPH 2.25 g 100 mL/hr over 30 Minutes Intravenous Every 12 Hours 02/01/19 0402 Current Labs: Lab Results Component Value Date/Time WBC 21.67 (H) 02/01/2019 03:18 AM WBC 11.16 (H) 01/09/2019 05:46 AM WBC 11.96 (H) 01/08/2019 05:26 AM PCALX 0.50 (H) 02/01/2019 03:18 AM PCALX 0.82 (H) 01/06/2019 05:29 AM PCALX 0.57 (H) 06/05/2018 12:57 AM Current Indication: Treatment Indication: C. Difficile Infection Assessment/Recommendation: Stewardship Recommendation Type: De-escalate therapy Recommendation: Patient was empirically started on oral vancomycin for concern of C.diff on admission due to recent antibiotic use. Spoke with RN who stated patient has not stooled at all since admission. Recommend stopping oral vancomcyin and cancelling C.diff test order as C.diff test not even possible due to lack of BM. Submitted by: Traci PlattD ( ) Disclaimer: The recommendations from the Antibiotic Stewardship Program are derived from a review of the medical records and not a history and/or physical. The recommendations are n ot a substitute for either clinical judgement or an infectious disease consultation and are not binding. onver patric Transaction, Provider Unknown - 02/01/2019 12:04 PM PDT Pharmacy Note by Felicitas Bender RPH at 02/01/19 1204 Author: Felicitas Bender RPH Service: Pharmacy Author Type: Pharmacist Filed: 02/01/191203 Date of Service: 02/01/191203 Status: Signed Power Wood Sawyer: Felicitas Bender RPH (Pharmacist) Clinical Pharmacy Note: Pharmacy Dosing Vancomycin; Day 2 Ht Readings from Last 1 Encounters: 02/01/19 1.575 m (5' 2") Wt Readings from Last 1 Encounters: 02/01/19 81.3 kg (179 lb 3.2 oz) Lab Results Component Value Date WBC 21.67 (H) 02/01/2019 Serum creatinine: 11.53 mg/dL (H) 02/01/19 0318 Estimated creatinine clearance: 6.4 mL/min (A) INDICATION: Intraabdominal infection The patient has ESRD requiring peritoneal dialysis which has continued while inpatient. Th e dosing for PD differs than the requirements for HD and does not fit our SHAWN protocol. Per the [facility] PD dosing recommmendations, it is recommended that levels are scarlett wn every 3- 5 days and if level is less than 15 mcg/ml then another dose is required. Will retime level for 3 days post the loading dose with morning levels and subsequent levels will be determined then. Next level due 02/04 at AM labs. Felicitas Bender RPh 02/01/2019 12:00 PM onver patric Transaction, Provider Unknown - 02/01/2019 7:34 AM PDT Nurse Progress Note by April Madsen RN at 02/01/19733 Author: April Madsen RN Service: (none) Author Type: Registered Nurse Filed: 02/01/1935 Date of Service: 02/01/19733 Status: Signed Power Wood Sawyer: April Madsen RN (Registered Nurse) ordered for culture, cell count and gram stain of PD fluid. This route sales driver able to draw 35ml of peritoneal fluid from pt's PD cath. Sent to lab. onver patric Transaction, Provider Unknown - 02/01/2019 6:26 AM PDT Pharmacy Note by Tisha Vanegas RPH at 02/01/19625 Author: Tisha Vanegas RPH Service: Pharmacy Author Type: Pharmacist Filed: 02/01/19625 Date of Service: 02/01/19625 Status: Signed Power Wood Sawyer: Tisha Vanegas RPH (Pharmacist) Initiation of Vancomycin Pharmacy Dosing Ramona Oconnor 38 y.o. female 1.575 m (5' 2") 81.3 kg (179 lb 3.2 oz) Body mass index is 32.78 kg/m. Tenmile body weight: 50.1 kg (110 lb 7.2 oz) Adjusted ideal body weight: 62.6 kg (137 lb 15.2 oz) CREATININE Date Value Ref Range Status 02/01/2019 11.53 (H) 0.50 - 1.00 mg/dL Final Estimated CrCl : Serum creatinine: 11.53 mg/dL (H) 02/01/19317 Estimated creatinine clearance: 6.4 mL/min (A) Indications: intra-abdominal infections Patient is on peritoneal dialysis, will use SHAWN protocol so level can be checked. Dose per Acute Renal Failure Protocol: Loading Dose: Vancomycin 2000 mg (25 mg/kg TBW) IV once. First Dose to be Given: at 0530 on 02/01 (1500 mg + 500 mg) For Vancomycin level greater than 20 mcg/mL: No dose due For Vancomycin level between 10-20 mcg/mL and NO hemodialysis scheduled: No dose due For Vancomycin level between 10-20 mcg/mL and hemodialysis is expected in the next 24 hours : Give Vancomycin 500 mg IV once For Vancomycin level below 10 mcg/mL: Give Vancomycin 750 mg IV once. Will draw a random level daily with AM labs while patient is on PD. Goal Level for Vancomycin: 10-20 mcg/mL Pharmacist: Tisha Vanegas 02/01/2019 6:19 AM onver patric Transaction, Provider Unknown - 02/01/2019 4:05 AM PDT Pharmacy Note by Tisha Vanegas RPH at 02/01/195 Author: Tisha Vanegas RPH Service: Pharmacy Author Type: Pharmacist Filed: 02/01/19404 Date of Service: 02/01/19404 Status: Signed Power Wood Sawyer: Tisha Vanegas RPH (Pharmacist) Zosyn Extended Infusion Initial Consult Ramona Oconnor 38 y.o. female Estimated Creatinine Clearance: 5.6 mL/min (A) (by C-G formula based on SCr of 13.2 mg/dL ( H)). NEUTROPHILS ABS Date Value Ref Range Status 01/09/2019 8.59 (H) 1.90 - 7.40 K/uL Final Neutrophils Absolute Date Value Ref Range Status 01/07/2019 7.00 1.90 - 7.40 K/uL Final CREATININE Date Value Ref Range Status 01/09/2019 13.2 (H) 0.50 - 1.00 mg/dL Final ESRD on PD Zosyn 2.25 g IV q12h over 30 minutes infusion Pharmacy will continue monitoring patient for appropriate dosing per renal function. 02/01/2019 4:03 AM Pharmacist: Tisha Vanegas onver patric Transaction, Provider Unknown - 02/01/2019 3:09 AM PDT Pharmacy Note by Tisha Vanegas RPH at 02/01/19 0309 Author: Tisha Vanegas RPH Service: Pharmacy Author Type: Pharmacist Filed: 02/01/19 Date of Service: 02/01/19308 Status: Signed Power Wood Sawyer: Tisha Vanegas RPH (Pharmacist) Clinical Pharmacy Note: Renal Monitoring Ramona Oconnor 38 y.o. female Ht Readings from Last 1 Encounters: 02/01/19 1.575 m (5' 2") Wt Readings from Last 1 Encounters: 02/01/19 81.3 kg (179 lb 3.2 oz) Patient is on hemodialysis (PD). Pharmacy dosing for renal function per Dr. Roque. Will order the following dosage adjustments: Cipro 400 mg IV Q24H Pepcid 20 mg IV/PO Q24H Pharmacy will continue to monitor for changes in medication orders and adjust accordingly. Tisha Vanegas RPh 02/01/2019 3:07 AM docume nted in this encounter Plan of Treatment Not on filedocumented as of this encounter Procedures + +--------+ + + + | Procedure Name | Priori | Date/Time | Associated Diagnosis | Comments | | | ty | | | | + +--------+ + + + | EXTERNAL LAB: CBC | Routin | 02/15/2019 | | Results for this | | | e | 4:38 AM | | procedure are in the | | | | PDT | | results section. | + +--------+ + + + | BASIC METABOLIC | Routin | 02/15/2019 | | Results for this | | PANEL | e | 4:38 AM | | procedure are in the | | | | PDT | | results section. | + +--------+ + + + | EXTERNAL LAB: BLAINE | Routin | 02/14/2019 | | Results for this | | | e | 4:16 AM | | procedure are in the | | | | PDT | | results section. | + +--------+ + + + | BASIC METABOLIC | Routin | 02/14/2019 | | Results for this | | PANEL | e | 4:16 AM | | procedure are in the | | | | PDT | | results section. | + +--------+ + + + | EXTERNAL LAB: BLAINE | Routin | 02/13/2019 | | Results for this | | | e | 4:33 AM | | procedure are in the | | | | PDT | | results section. | + +--------+ + + + | BASIC METABOLIC | Routin | 02/13/2019 | | Results for this | | PANEL | e | 4:33 AM | | procedure are in the | | | | PDT | | results section. | + +--------+ + + + | EXTERNAL LAB: CBC | Routin | 02/12/2019 | | Results for this | | | e | 5:49 AM | | procedure are in the | | | | PDT | | results section. | + +--------+ + + + | BASIC METABOLIC | Routin | 02/12/2019 | | Results for this | | PANEL | e | 5:49 AM | | procedure are in the | | | | PDT | | results section. | + +--------+ + + + | EXTERNAL LAB: BLAINE | Routin | 02/11/2019 | | Results for this | | | e | 6:08 AM | | procedure are in the | | | | PDT | | results section. | + +--------+ + + + | BASIC METABOLIC | Routin | 02/11/2019 | | Results for this | | PANEL | e | 6:08 AM | | procedure are in the | | | | PDT | | results section. | + +--------+ + + + | EXTERNAL LAB: BLAINE | Routin | 02/10/2019 | | Results for this | | | e | 10:19 AM | | procedure are in the | | | | PDT | | results section. | + +--------+ + + + | EXTERNAL LAB: BLAINE | Routin | 02/10/2019 | | Results for this | | | e | 5:17 AM | | procedure are in the | | | | PDT | | results section. | + +--------+ + + + | BASIC METABOLIC | Routin | 02/10/2019 | | Results for this | | PANEL | e | 5:17 AM | | procedure are in the | | | | PDT | | results section. | + +--------+ + + + | EXTERNAL LAB: CBC | Routin | 02/09/2019 | | Results for this | | | e | 5:07 AM | | procedure are in the | | | | PDT | | results section. | + +--------+ + + + | BASIC METABOLIC | Routin | 02/09/2019 | | Results for this | | PANEL | e | 5:07 AM | | procedure are in the | | | | PDT | | results section. | + +--------+ + + + | VANCOMYCIN LEVEL | Routin | 02/08/2019 | | Results for this | | | e | 8:16 AM | | procedure are in the | | | | PDT | | results section. | + +--------+ + + + | EXTERNAL LAB: CBC | Routin | 02/08/2019 | | Results for this | | | e | 5:18 AM | | procedure are in the | | | | PDT | | results section. | + +--------+ + + + | POTASSIUM | Routin | 02/08/2019 | | Results for this | | | e | 5:18 AM | | procedure are in the | | | | PDT | | results section. | + +--------+ + + + | BASIC METABOLIC | Routin | 02/08/2019 | | Results for this | | PANEL | e | 5:18 AM | | procedure are in the | | | | PDT | | results section. | + +--------+ + + + | EXTERNAL LAB: CBC | Routin | 02/07/2019 | | Results for this | | | e | 6:45 AM | | procedure are in the | | | | PDT | | results section. | + +--------+ + + + | BASIC METABOLIC | Routin | 02/07/2019 | | Results for this | | PANEL | e | 6:45 AM | | procedure are in the | | | | PDT | | results section. | + +--------+ + + + | EXTERNAL LAB: BLAINE | Routin | 02/06/2019 | | Results for this | | | e | 5:19 AM | | procedure are in the | | | | PDT | | results section. | + +--------+ + + + | BASIC METABOLIC | Routin | 02/06/2019 | | Results for this | | PANEL | e | 5:19 AM | | procedure are in the | | | | PDT | | results section. | + +--------+ + + + | ECG 12 LEAD | Routin | 2019 | | Results for this | | | e | 5:30 PM | | procedure are in the | | | | PDT | | results section. | + +--------+ + + + | VAS ARM BILATERAL | Routin | 2019 | | Results for this | | MAPPING FOR DIALYSIS | e | 11:05 AM | | procedure are in the | | | | PDT | | results section. | + +--------+ + + + | EXTERNAL LAB: CBC | Routin | 2019 | | Results for this | | | e | 9:15 AM | | procedure are in the | | | | PDT | | results section. | + +--------+ + + + | HEPATITIS PANEL, | Routin | 2019 | | Results for this | | CHRONIC | e | 9:15 AM | | procedure are in the | | | | PDT | | results section. | + +--------+ + + + | VANCOMYCIN LEVEL | Routin | 2019 | | Results for this | | | e | 9:15 AM | | procedure are in the | | | | PDT | | results section. | + +--------+ + + + | BASIC METABOLIC | Routin | 2019 | | Results for this | | PANEL | e | 9:15 AM | | procedure are in the | | | | PDT | | results section. | + +--------+ + + + | IR PLACEMENT | Routin | 2019 | | Results for this | | TUNNELED CENTRAL | e | 7:57 AM | | procedure are in the | | VENOUS CATHETER > 5 | | PDT | | results section. | | YEARS | | | | | + +--------+ + + + | US GUIDED VASCULAR | Routin | 2019 | | Results for this | | ACCESS | e | 7:31 AM | | procedure are in the | | | | PDT | | results section. | + +--------+ + + + | POTASSIUM | Routin | 2019 | | Results for this | | | e | 2:19 AM | | procedure are in the | | | | PDT | | results section. | + +--------+ + + + | POTASSIUM | Routin | 02/04/2019 | | Results for this | | | e | 10:34 PM | | procedure are in the | | | | PDT | | results section. | + +--------+ + + + | HISTORICAL | STAT | 02/04/2019 | | Results for this | | MICROBIOLOGY RESULT | | 5:05 PM | | procedure are in the | | | | PDT | | results section. | + +--------+ + + + | EXTERNAL LAB: BLAINE | Routin | 02/04/2019 | | Results for this | | | e | 6:47 AM | | procedure are in the | | | | PDT | | results section. | + +--------+ + + + | , SERUM, | Routin | 02/04/2019 | | Results for this | | QUAL | e | 6:47 AM | | procedure are in the | | | | PDT | | results section. | + +--------+ + + + | RENAL FUNCTION PANEL | Routin | 02/04/2019 | | Results for this | | | e | 6:47 AM | | procedure are in the | | | | PDT | | results section. | + +--------+ + + + | EXTERNAL LAB: BLAINE | Routin | 02/03/2019 | | Results for this | | | e | 6:00 AM | | procedure are in the | | | | PDT | | results section. | + +--------+ + + + | PHOSPHORUS | Routin | 02/03/2019 | | Results for this | | | e | 6:00 AM | | procedure are in the | | | | PDT | | results section. | + +--------+ + + + | MAGNESIUM | Routin | 02/03/2019 | | Results for this | | | e | 6:00 AM | | procedure are in the | | | | PDT | | results section. | + +--------+ + + + | VANCOMYCIN LEVEL | Routin | 02/03/2019 | | Results for this | | | e | 6:00 AM | | procedure are in the | | | | PDT | | results section. | + +--------+ + + + | COMPREHENSIVE | Routin | 02/03/2019 | | Results for this | | METABOLIC PANEL | e | 6:00 AM | | procedure are in the | | | | PDT | | results section. | + +--------+ + + + | EXTERNAL LAB: CBC | Routin | 02/02/2019 | | Results for this | | | e | 5:40 AM | | procedure are in the | | | | PDT | | results section. | + +--------+ + + + | COMPREHENSIVE | Routin | 02/02/2019 | | Results for this | | METABOLIC PANEL | e | 5:40 AM | | procedure are in the | | | | PDT | | results section. | + +--------+ + + + | US ABDOMEN LIMITED | Routin | 02/01/2019 | | Results for this | | | e | 4:26 PM | | procedure are in the | | | | PDT | | results section. | + +--------+ + + + | TROPONIN I | Routin | 02/01/2019 | | Results for this | | | e | 12:08 PM | | procedure are in the | | | | PDT | | results section. | + +--------+ + + + | US PELVIS W | Routin | 02/01/2019 | | Results for this | | TRANSVAGINAL | e | 10:55 AM | | procedure are in the | | | | PDT | | results section. | + +--------+ + + + | CELL COUNT, BODY | Routin | 02/01/2019 | | Results for this | | FLUID | e | 7:53 AM | | procedure are in the | | | | PDT | | results section. | + +--------+ + + + | CULTURE, BODY FLUID, | Timed | 02/01/2019 | | Results for this | | STERILE, SMEAR, | | 7:51 AM | | procedure are in the | | WITH ANAEROBES | | PDT | | results section. | + +--------+ + + + | TROPONIN I | Routin | 02/01/2019 | | Results for this | | | e | 7:18 AM | | procedure are in the | | | | PDT | | results section. | + +--------+ + + + | LACTIC ACID | Routin | 02/01/2019 | | Results for this | | | e | 7:18 AM | | procedure are in the | | | | PDT | | results section. | + +--------+ + + + | ECG 12 LEAD | Routin | 02/01/2019 | | Results for this | | | e | 5:52 AM | | procedure are in the | | | | PDT | | results section. | + +--------+ + + + | LACTIC ACID | Routin | 02/01/2019 | | Results for this | | | e | 4:38 AM | | procedure are in the | | | | PDT | | results section. | + +--------+ + + + | MRSA NAAT | Timed | 02/01/2019 | | Results for this | | | | 3:28 AM | | procedure are in the | | | | PDT | | results section. | + +--------+ + + + | EXTERNAL LAB: CBC | Routin | 02/01/2019 | | Results for this | | | e | 3:18 AM | | procedure are in the | | | | PDT | | results section. | + +--------+ + + + | PROCALCITONIN, SERUM | Routin | 02/01/2019 | | Results for this | | | e | 3:18 AM | | procedure are in the | | | | PDT | | results section. | + +--------+ + + + | PHOSPHORUS | Routin | 02/01/2019 | | Results for this | | | e | 3:18 AM | | procedure are in the | | | | PDT | | results section. | + +--------+ + + + | MAGNESIUM | Routin | 02/01/2019 | | Results for this | | | e | 3:18 AM | | procedure are in the | | | | PDT | | results section. | + +--------+ + + + | COMPREHENSIVE | Routin | 02/01/2019 | | Results for this | | METABOLIC PANEL | e | 3:18 AM | | procedure are in the | | | | PDT | | results section. | + +--------+ + + + | CULTURE, BLOOD, 2ND | Timed | 02/01/2019 | | Results for this | | SPECIMEN (NON-ORD) | | 3:17 AM | | procedure are in the | | | | PDT | | results section. | + +--------+ + + + | CULTURE, BLOOD | Timed | 02/01/2019 | | Results for this | | | | 3:17 AM | | procedure are in the | | | | PDT | | results section. | + +--------+ + + + | POC GLUCOSE | Routin | 02/01/2019 | | Results for this | | | e | 3:13 AM | | procedure are in the | | | | PDT | | results section. | + +--------+ + + + documented in this encounter Results External Lab: CBC (02/15/2019 4:38 AM PDT) + + + + + + | Component | Value | Ref Range | Performed | Pathologist | | | | | At | Signature | + + + + + + | WBC | 9.63 | 3.80 - 11.00 | EXTERNAL | | | | | K/uL | LAB | | + + + + + + | Red Blood | 3.20 (L) | 3.70 - 5.10 | EXTERNAL | | | Cells | | M/uL | LAB | | | Counted | | | | | + + + + + + | Hemoglobin | 9.8 (L) | 11.3 - 15.5 | EXTERNAL | | | | | g/dL | LAB | | + + + + + + | Hematocrit, | 29.5 (L) | 34.0 - 46.0 % | EXTERNAL | | | POC | | | LAB | | + + + + + + | MCV | 92.2 | 80.0 - 100.0 fl | EXTERNAL | | | | | | LAB | | + + + + + + | MCH | 30.6 | 27.0 - 34.0 pg | EXTERNAL [...] + + + + | Platelet | 305 | 150 - 400 K/uL | EXTERNAL | | | Count | | | LAB | | | Plasma | | | | | + + + + + + | MPV | 8.4 | fl | EXTERNAL | | | | | | LAB | | + + + + + + | Differentia | AUTOMATED | | EXTERNAL | | | l Type | | | LAB | | + + + + + + | % Segmented | 74.28 | % | EXTERNAL | | | | | | LAB | | | Neutrophils | | | | | + + + + + + | % | 14.74 | % | EXTERNAL | | | Lymphocytes | | | LAB | | + + + + + + | % Monocytes | 6.37 | % | EXTERNAL | | | | | | LAB | | + + + + + + | % | 3.93 | % | EXTERNAL | | | Eosinophils | | | LAB | | + + + + + + | % Basophils | 0.68 | % | EXTERNAL | | | | | | LAB | | + + + + + + | Absolute | 7.15 | 1.90 - 7.40 | EXTERNAL | | | Segmented | | K/uL | LAB | | | Neutrophils | | | | | + + + + + + | Absolute | 1.42 | 1.00 - 3.90 | EXTERNAL | | | Lymphocytes | | K/uL | LAB | | + + + + + + | Absolute | 0.61 | 0.00 - 0.80 | EXTERNAL | | | Monocytes | | K/uL | LAB | | + + + + + + | Absolute | 0.38 | 0.00 - 0.50 | EXTERNAL | | | Eosinophils | | K/uL | LAB | | + + + + + + | Absolute | 0.07Comment: Testing | 0.00 - 0.10 | EXTERNAL | | | Basophils | performed at [facility], [address] | K/uL | LAB | | | | [address], | | | | | | [place] [address] | | | | + + + [...] + +---------+ + + Basic Metabolic Panel (02/15/2019 4:38 AM PDT) + + + + + + | Component | Value | Ref Range | Performed | Pathologist | | | | | At | Signature | + + + + + + | Na | 140 | 135 - 145 | EXTERNAL | | | | | mmol/L | LAB | | + + + + + + | K | 4.4 | 3.5 - 4.9 | EXTERNAL | | | | | mmol/L | LAB | | + + + + + + | Cl | 105 | 99 - 109 mmol/L | EXTERNAL | | | | | | LAB | | + + + + + + | CO2 | 24 | 23 - 32 mmol/L | EXTERNAL | | | | | | LAB | | + + + + + + | Anion Gap | 15 | 5 - 20 mmol/L | EXTERNAL | | | | | | LAB | | + + + + + + | Glucose, | 106 (H) | 65 - 99 mg/dL | EXTERNAL | | | Fasting | | | LAB | | + + + + + + | BUN | 28 (H) | 8 - 25 mg/dL | EXTERNAL | | | | | | LAB | | + + + + + + | Creatinine | 10.6 (H) | 0.50 - 1.00 | EXTERNAL [...] | | | | | performed at [facility], [address] | | | | | | [facility], | | | | | | [place] [address] | | | | + + + [...] + +---------+ + + External Lab: CBC (02/14/2019 4:16 AM PDT) + + + + + + | Component | Value | Ref Range | Performed | Pathologist | | | | | At | Signature | + + + + + + | WBC | 11.19 (H) | 3.80 - 11.00 | EXTERNAL | | | | | K/uL | LAB | | + + + + + + | Red Blood | 3.44 (L) | 3.70 - 5.10 | EXTERNAL | | | Cells | | M/uL | LAB | | | Counted | | | | | + + + + + + | Hemoglobin | 10.6 (L) | 11.3 - 15.5 | EXTERNAL | | | | | g/dL | LAB | | + + + + + + | Hematocrit, | 32.1 (L) | 34.0 - 46.0 % | EXTERNAL | | | POC | | | LAB | | + + + + + + | MCV | 93.2 | 80.0 - 100.0 fl | EXTERNAL | | | | | | LAB | | + + + + + + | MCH | 30.8 | 27.0 - 34.0 pg | EXTERNAL | | | | | | LAB | | + + + + + + | MCHC | 33.1 | 32.0 - 35.5 | EXTERNAL | | | | | g/dL | LAB | | + + + + + + | RDW-CV | 51.6 | 37 - 53 fl | EXTERNAL | | | | | | LAB | | + + + + + + | Platelet | 303 | 150 - 400 K/uL | EXTERNAL [...] + + + | % Segmented | 73.64 | % | EXTERNAL | | | | | | LAB | | | Neutrophils | | | | | + + + + + + | % | 15.17 | % | EXTERNAL | | | Lymphocytes | | | LAB | | + + + + + + | % Monocytes | 6.74 | % | EXTERNAL | | | | | | LAB | | + + + + + + | % | 3.83 | % | EXTERNAL | | | Eosinophils | | | LAB | | + + + + + + | % Basophils | 0.62 | % | EXTERNAL | | | | | | LAB | | + + + + + + | Absolute | 8.24 (H) | 1.90 - 7.40 | EXTERNAL | | | Segmented | | K/uL | LAB | | | Neutrophils | | | | | + + + + + + | Absolute | 1.70 | 1.00 - 3.90 | EXTERNAL | | | Lymphocytes | | K/uL | LAB | | + + + + + + | Absolute | 0.75 | 0.00 - 0.80 | EXTERNAL | | | Monocytes | | K/uL | LAB | | + + + + + + | Absolute | 0.43 | 0.00 - 0.50 | EXTERNAL | | | Eosinophils | | K/uL | LAB | | + + + + + + | Absolute | 0.07Comment: Testing | 0.00 - 0.10 | EXTERNAL | | | Basophils | performed at [facility], [address] | K/uL | LAB | | | | [address], | | | | | | [place] [address] | | | | + + + [...] + +---------+ + + Basic Metabolic Panel (02/14/2019 4:16 AM PDT) + + + + + [...] | 4.5 | 3.5 - 4.9 | EXTERNAL | [...] + + + + | Creatinine | 8.5 (H) | 0.50 - 1.00 | EXTERNAL [...] Estimated | 5 (L)Comment: GFR <60: | mL/min/1.73m2 | EXTERNAL [...] | | | | | performed at [facility], [address] | | | | | | [facility], | | | | | | [place] [address] | | | | + + + [...] + +---------+ + + External Lab: CBC (02/13/2019 4:33 AM PDT) + + + + + + | Component | Value | Ref Range | Performed | Pathologist | | | | | At | Signature | + + + + + + | WBC | 9.87 | 3.80 - 11.00 | EXTERNAL | | | | | K/uL | LAB | | + + + + + + | Red Blood | 3.28 (L) | 3.70 - 5.10 | EXTERNAL | | | Cells | | M/uL | LAB | | | Counted | | | | | + + + + + + | Hemoglobin | 10.0 (L) | 11.3 - 15.5 | EXTERNAL | | | | | g/dL | LAB | | + + + + + + | Hematocrit, | 30.5 (L) | 34.0 - 46.0 % | EXTERNAL | | | POC | | | LAB | | + + + + + + | MCV | 93.1 | 80.0 - 100.0 fl | EXTERNAL | | | | | | LAB | | + + + + + + | MCH | 30.6 | 27.0 - 34.0 pg | EXTERNAL | | | | | | LAB | | + + + + + + | MCHC | 32.9 | 32.0 - 35.5 | EXTERNAL | | | | | g/dL | LAB | | + + + + + + | RDW-CV | 52.1 | 37 - 53 fl | EXTERNAL | | | | | | LAB | | + + + + + + | Platelet | 307 | 150 - 400 K/uL | EXTERNAL [...] + + + + | Segmented | 66 | % | EXTERNAL | | | Neutrophils | | | LAB | | | Manual | | | | | + + + + + + | % Bands | 1 | % | EXTERNAL | | | | | | LAB | | + + + + + + | Lymphocytes | 25 | % | EXTERNAL | | | Manual | | | LAB | | + + + + + + | Monocytes | 3 | % | EXTERNAL | | | Manual | | | LAB | | + + + + + + | Eosinophils | 5 | % | EXTERNAL | | | Manual | | | LAB | | + + + + + + | Absolute | 6.51 | 1.90 - 7.40 | EXTERNAL | | | Neutrophils | | K/uL | LAB | | + + + + + + | Bands | 0.10 | 0.00 - 0.20 | EXTERNAL | | | Manual | | K/uL | LAB | | + + + + + + | Absolute | 2.47 | 1.00 - 3.90 | EXTERNAL | | | Lymphocytes | | K/uL | LAB | | + + + + + + | Absolute | 0.30 | 0.00 - 0.80 | EXTERNAL | | | Monocytes | | K/uL | LAB | | + + + + + + | Absolute | 0.49 | 0.00 - 0.50 | EXTERNAL | | | Eosinophils | | K/uL | LAB | | + + + + + + | RBC | RBC AND PLT MORPHOLOGY | | EXTERNAL | | | Morphology | APPEAR NORMALComment: | | LAB | | | | Testing performed at | | | | | | [facility], [address] [place] [address] | | | | | | [place] | | | | | | [address] | | | | + + + [...] + +---------+ + + Basic Metabolic Panel (02/13/2019 4:33 AM PDT) + + + + [...] 103 | 99 - 109 mmol/L | EXTERNAL | | | | | | LAB | | + + + + + + | CO2 | 28 | 23 - 32 mmol/L | EXTERNAL | | | | | | LAB | | + + + + + + | Anion Gap | 13 | 5 - 20 mmol/L | EXTERNAL | | | | | | LAB | | + + + + + + | Glucose, | 85 | 65 - 99 mg/dL | EXTERNAL | | | Fasting | | | LAB | | + + + + + + | BUN | 14 | 8 - 25 mg/dL | EXTERNAL | | | | | | LAB | | + + + + + + | Creatinine | 6.1 (H) | 0.50 - 1.00 | EXTERNAL [...] Estimated | 8 (L)Comment: GFR <60: | mL/min/1.73m2 | EXTERNAL [...] | | | | | performed at [facility], [address] | | | | | | [facility], | | | | | | [place] [address] | | | | + + + [...] + +---------+ + + External Lab: CBC (02/12/2019 5:49 AM PDT) + + + + + + | Component | Value | Ref Range | Performed | Pathologist | | | | | At | Signature | + + + + + + | WBC | 11.02 (H) | 3.80 - 11.00 | EXTERNAL | | | | | K/uL | LAB | | + + + + + + | Red Blood | 3.29 (L) | 3.70 - 5.10 | EXTERNAL | | | Cells | | M/uL | LAB | | | Counted | | | | | + + + + + + | Hemoglobin | 9.9 (L) | 11.3 - 15.5 | EXTERNAL | | | | | g/dL | LAB | | + + + + + + | Hematocrit, | 30.4 (L) | 34.0 - 46.0 % | EXTERNAL | | | POC | | | LAB | | + + + + + + | MCV | 92.4 | 80.0 - 100.0 fl | EXTERNAL [...] + + + + | RDW-CV | 52.5 | 37 - 53 fl | EXTERNAL | | | | | | LAB | | + + + + + + | Platelet | 308 | 150 - 400 K/uL | EXTERNAL | | | Count | | | LAB | | | Plasma | | | | | + + + + + + | MPV | 8.8 | fl | EXTERNAL | | | | | | LAB | | + + + + + + | Differentia | AUTOMATED | | EXTERNAL | | | l Type | | | LAB | | + + + + + + | % Segmented | 73.10 | % | EXTERNAL | | | | | | LAB | | | Neutrophils | | | | | + + + + + + | % | 15.42 | % | EXTERNAL | | | Lymphocytes | | | LAB | | + + + + + + | % Monocytes | 7.33 | % | EXTERNAL | | | | | | LAB | | + + + + + + | % | 3.58 | % | EXTERNAL | | | Eosinophils | | | LAB | | + + + + + + | % Basophils | 0.57 | % | EXTERNAL | | | | | | LAB | | + + + + + + | Absolute | 8.05 (H) | 1.90 - 7.40 | EXTERNAL | | | Segmented | | K/uL | LAB | | | Neutrophils | | | | | + + + + + + | Absolute | 1.70 | 1.00 - 3.90 | EXTERNAL | | | Lymphocytes | | K/uL | LAB | | + + + + + + | Absolute | 0.81 (H) | 0.00 - 0.80 | EXTERNAL | | | Monocytes | | K/uL | LAB | | + + + + + + | Absolute | 0.39 | 0.00 - 0.50 | EXTERNAL | | | Eosinophils | | K/uL | LAB | | + + + + + + | Absolute | 0.06Comment: Testing | 0.00 - 0.10 | EXTERNAL | | | Basophils | performed at [facility], [address] | K/uL | LAB | | | | [address], | | | | | | [place] [address] | | | | + + + [...] + +---------+ + + Basic Metabolic Panel (02/12/2019 5:49 AM PDT) + + + + + [...] 104 | 99 - 109 mmol/L | EXTERNAL [...] + + + + | Glucose, | 81 | 65 - 99 mg/dL | EXTERNAL | | | Fasting | | | LAB | | + + + + + + | BUN | 23 | 8 - 25 mg/dL | EXTERNAL | | | | | | LAB | | + + + + + + | Creatinine | 8.9 (H) | 0.50 - 1.00 | EXTERNAL | | | | | mg/dL | LAB | | + + + + + + | BUN/Creatin | 3 | | EXTERNAL | | | ine Ratio | | | LAB | | + + + + + + | Calcium | 8.6 | 8.5 - 10.5 | EXTERNAL | | | | | mg/dL | LAB | | + + + + + + | Estimated | 5 (L)Comment: GFR <60: | mL/min/1.73m2 | EXTERNAL [...] | | | | | performed at [facility], [address] | | | | | | [facility], | | | | | | [place] [address] | | | | + + + [...] + +---------+ + + External Lab: CBC (02/11/2019 6:08 AM PDT) + + + + + + | Component | Value | Ref Range | Performed | Pathologist | | | | | At | Signature | + + + + + + | WBC | 11.67 (H) | 3.80 - 11.00 | EXTERNAL | | | | | K/uL | LAB | | + + + + + + | Red Blood | 3.15 (L) | 3.70 - 5.10 | EXTERNAL | | | Cells | | M/uL | LAB | | | Counted | | | | | + + + + + + | Hemoglobin | 9.5 (L) | 11.3 - 15.5 | EXTERNAL | | | | | g/dL | LAB | | + + + + + + | Hematocrit, | 29.1 (L) | 34.0 - 46.0 % | EXTERNAL | | | POC | | | LAB | | + + + + + + | MCV | 92.3 | 80.0 - 100.0 fl | EXTERNAL [...] + + + + | Platelet | 280 | 150 - 400 K/uL | EXTERNAL | | | Count | | | LAB | | | Plasma | | | | | + + + + + + | MPV | 8.8 | fl | EXTERNAL | | | | | | LAB | | + + + + + + | Differentia | MANUAL | | EXTERNAL | | | l Type | | | LAB | | + + + + + + | Segmented | 84 | % | EXTERNAL | | | Neutrophils | | | LAB | | | Manual | | | | | + + + + + + | % Bands | 1 | % | EXTERNAL | | | | | | LAB | | + + + + + + | Lymphocytes | 9 | % | EXTERNAL | | | Manual | | | LAB | | + + + + + + | Monocytes | 3 | % | EXTERNAL | | | Manual | | | LAB | | + + + + + + | Eosinophils | 3 | % | EXTERNAL | | | Manual | | | LAB | | + + + + + + | Absolute | 9.80 (H) | 1.90 - 7.40 | EXTERNAL | | | Neutrophils | | K/uL | LAB | | + + + + + + | Bands | 0.12 | 0.00 - 0.20 | EXTERNAL | | | Manual | | K/uL | LAB | | + + + + + + | Absolute | 1.05 | 1.00 - 3.90 | EXTERNAL | | | Lymphocytes | | K/uL | LAB | | + + + + + + | Absolute | 0.35 | 0.00 - 0.80 | EXTERNAL | | | Monocytes | | K/uL | LAB | | + + + + + + | Absolute | 0.35 | 0.00 - 0.50 | EXTERNAL | | | Eosinophils | | K/uL | LAB | | + + + + + + | RBC | RBC AND PLT MORPHOLOGY | | EXTERNAL | | | Morphology | APPEAR NORMALComment: | | LAB | | | | Testing performed at | | | | | | [facility], [address] [facility] | | | | | | [place] | | | | | | [address] | | | | + + + [...] + +---------+ + + Basic Metabolic Panel (02/11/2019 6:08 AM PDT) + + + + + + | Component | Value | Ref Range | Performed | Pathologist | | | | | At | Signature | + + + + + + | Na | 140 | 135 - 145 | EXTERNAL | | | | | mmol/L | LAB | | + + + + + + | K | 4.0 | 3.5 - 4.9 | EXTERNAL | [...] 13 | 5 - 20 mmol/L | EXTERNAL | | | | | | LAB | | + + + + + + | Glucose, | 97 | 65 - 99 mg/dL | EXTERNAL | | | Fasting | | | LAB | | + + + + + + | BUN | 15 | 8 - 25 mg/dL | EXTERNAL | | | | | | LAB | | + + + + + + | Creatinine | 6.5 (H) | 0.50 - 1.00 | EXTERNAL [...] | | | | | performed at [facility], [address] | | | | | | [facility], | | | | | | [place] [address] | | | | + + + [...] + +---------+ + + External Lab: CBC (02/10/2019 10:19 AM PDT) + + + + + + | Component | Value | Ref Range | Performed | Pathologist | | | | | At | Signature | + + + + + + | WBC | 12.41 (H) | 3.80 - 11.00 | EXTERNAL | | | | | K/uL | LAB | | + + + + + + | Red Blood | 3.43 (L) | 3.70 - 5.10 | EXTERNAL | | | Cells | | M/uL | LAB | | | Counted | | | | | + + + + + + | Hemoglobin | 10.2 (L) | 11.3 - 15.5 | EXTERNAL | | | | | g/dL | LAB | | + + + + + + | Hematocrit, | 31.8 (L) | 34.0 - 46.0 % | EXTERNAL | | | POC | | | LAB | | + + + + + + | MCV | 92.6 | 80.0 - 100.0 fl | EXTERNAL | | | | | | LAB | | + + + + + + | MCH | 29.6 | 27.0 - 34.0 pg | EXTERNAL | | | | | | LAB | | + + + + + + | MCHC | 32.0 | 32.0 - 35.5 | EXTERNAL | | | | | g/dL | LAB | | + + + + + + | RDW-CV | 53.4 (H) | 37 - 53 fl | EXTERNAL | | | | | | LAB | | + + + + + + | Platelet | 273 | 150 - 400 K/uL | EXTERNAL | | | Count | | | LAB | | | Plasma | | | | | + + + + + + | MPV | 8.2 | fl | EXTERNAL | | | [...] + + + + | % | 10.15 | % | EXTERNAL | | | Lymphocytes | | | LAB | | + + + + + + | % Monocytes | 5.93 | % | EXTERNAL | | | | | | LAB | | + + + + + + | % | 2.81 | % | EXTERNAL | | | Eosinophils | | | LAB | | + + + + + + | % Basophils | 0.62 | % | EXTERNAL | | | | | | LAB | | + + + + + + | Absolute | 9.99 (H) | 1.90 - 7.40 | EXTERNAL | | | Segmented | | K/uL | LAB | | | Neutrophils | | | | | + + + + + + | Absolute | 1.26 | 1.00 - 3.90 | EXTERNAL | | | Lymphocytes | | K/uL | LAB | | + + + + + + | Absolute | 0.74 | 0.00 - 0.80 | EXTERNAL | | | Monocytes | | K/uL | LAB | | + + + + + + | Absolute | 0.35 | 0.00 - 0.50 | EXTERNAL | [...] | | | | | performed at [facility];[address] | | | | | | [address];[place], [place] | | | | | | [address] | | | | + + [...] + +---------+ + + External Lab: CBC (02/10/2019 5:17 AM PDT) + + + + + + | Component | Value | Ref Range | Performed | Pathologist | | | | | At | Signature | + + + + + + | WBC | 12.04 (H) | 3.80 - 11.00 | EXTERNAL | | | | | K/uL | LAB | | + + + + + + | Red Blood | 3.41 (L) | 3.70 - 5.10 | EXTERNAL | | | Cells | | M/uL | LAB | | | Counted | | | | | + + + + + + | Hemoglobin | 10.2 (L) | 11.3 - 15.5 | EXTERNAL | | | | | g/dL | LAB | | + + + + + + | Hematocrit, | 31.7 (L) | 34.0 - 46.0 % | EXTERNAL | | | POC | | | LAB | | + + + + + + | MCV | 93.0 | 80.0 - 100.0 fl | EXTERNAL [...] + + + + | Platelet | 261 | 150 - 400 K/uL | EXTERNAL [...] + + + | % Segmented | 78.70 | % | EXTERNAL | | | | | | LAB | | | Neutrophils | | | | | + + + + + + | % | 12.72 | % | EXTERNAL | | | Lymphocytes | | | LAB | | + + + + + + | % Monocytes | 5.81 | % | EXTERNAL | | | | | | LAB | | + + + + + + | % | 2.15 | % | EXTERNAL | | | Eosinophils | | | LAB | | + + + + + + | % Basophils | 0.62 | % | EXTERNAL | | | | | | LAB | | + + + + + + | Absolute | 9.47 (H) | 1.90 - 7.40 | EXTERNAL | | | Segmented | | K/uL | LAB | | | Neutrophils | | | | | + + + + + + | Absolute | 1.53 | 1.00 - 3.90 | EXTERNAL | | | Lymphocytes | | K/uL | LAB | | + + + + + + | Absolute | 0.70 | 0.00 - 0.80 | EXTERNAL | | | Monocytes | | K/uL | LAB | | + + + + + + | Absolute | 0.26 | 0.00 - 0.50 | EXTERNAL | [...] | | | | | performed at [facility];[address] | | | | | | [address];[place], [place] | | | | | | [address] | | | | + + + [...] + +---------+ + + Basic Metabolic Panel (02/10/2019 5:17 AM PDT) + + + + + [...] 103 | 99 - 109 mmol/L | EXTERNAL | | | | | | LAB | | + + + + + + | CO2 | 24 | 23 - 32 mmol/L | EXTERNAL | | | | | | LAB | | + + + + + + | Anion Gap | 16 | 5 - 20 mmol/L | EXTERNAL | | | | | | LAB | | + + + + + + | Glucose, | 62 (L) | 65 - 99 mg/dL | EXTERNAL | | | Fasting | | | LAB | | + + + + + + | BUN | 21 | 8 - 25 mg/dL | EXTERNAL | | | | | | LAB | | + + + + + + | Creatinine | 9.9 (H) | 0.50 - 1.00 | EXTERNAL [...] | | | | | performed at [facility], [address] | | | | | | [facility], | | | | | | [place] [address] | | | | + + + [...] + +---------+ + + External Lab: CBC (02/09/2019 5:07 AM PDT) + + + + + + | Component | Value | Ref Range | Performed | Pathologist | | | | | At | Signature | + + + + + + | WBC | 14.51 (H) | 3.80 - 11.00 | EXTERNAL | | | | | K/uL | LAB | | + + + + + + | Red Blood | 3.52 (L) | 3.70 - 5.10 | EXTERNAL | | | Cells | | M/uL | LAB | | | Counted | | | | | + + + + + + | Hemoglobin | 10.4 (L) | 11.3 - 15.5 | EXTERNAL | | | | | g/dL | LAB | | + + + + + + | Hematocrit, | 32.8 (L) | 34.0 - 46.0 % | EXTERNAL | | | POC | | | LAB | | + + + + + + | MCV | 93.0 | 80.0 - 100.0 fl | EXTERNAL | | | | | | LAB | | + + + + + + | MCH | 29.4 | 27.0 - 34.0 pg | EXTERNAL | | | | | | LAB | | + + + + + + | MCHC | 31.6 (L) | 32.0 - 35.5 | EXTERNAL | | | | | g/dL | LAB | | + + + + + + | RDW-CV | 52.1 | 37 - 53 fl | EXTERNAL | | | | | | LAB | | + + + + + + | Platelet | 260Comment: | 150 - 400 K/uL | EXTERNAL | | | Count | | | LAB | | | Plasma | | | | | + + + + + + | MPV | 9.0Comment: | fl | EXTERNAL | | | | | | LAB | | + + + + + + | Differentia | MANUAL | | EXTERNAL | | | l Type | | | LAB | | + + + + + + | Segmented | 66 | % | EXTERNAL | | | Neutrophils | | | LAB | | | Manual | | | | | + + + + + + | % Bands | 3 | % | EXTERNAL | | | | | | LAB | | + + + + + + | % | 1 | % | EXTERNAL | | | 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 | | | | | + + + + + + | Lymphocytes | 20 | % | EXTERNAL | | | Manual | | | LAB | | + + + + + + | Monocytes | 6 | % | EXTERNAL | | | Manual | | | LAB | | + + + + + + | Eosinophils | 4 | % | EXTERNAL | | | Manual | | | LAB | | + + + + + + | Absolute | 9.57 (H) | 1.90 - 7.40 | EXTERNAL | | | Neutrophils | | K/uL | LAB | | + + + + + + | Bands | 0.44 (H) | 0.00 - 0.20 | EXTERNAL | | | Manual | | K/uL | LAB | | + + + + + + | Absolute | 0.15 (H) | K/uL | EXTERNAL | | | 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 | | | | | + + + + + + | Absolute | 2.90 | 1.00 - 3.90 | EXTERNAL | | | Lymphocytes | | K/uL | LAB | | + + + + + + | Absolute | 0.87 (H) | 0.00 - 0.80 | EXTERNAL | | | Monocytes | | K/uL | LAB | | + + + + + + | Absolute | 0.58 (H) | 0.00 - 0.50 | EXTERNAL | | | Eosinophils | | K/uL | LAB | | + + + + + + | RBC | 2+Comment: ANISONORMAL | | EXTERNAL | | | Morphology | PLT MORPHTesting | | LAB | | | | performed at [facility];[address] | | | | | | [address];[place], [place] | | | | | | [address] | | | | | | | [...] + +---------+ + + Basic Metabolic Panel (02/09/2019 5:07 AM PDT) + + + + [...] + + + | K | 4.2Comment: SPECIMEN | 3.5 - 4.9 | EXTERNAL [...] 13 | 5 - 20 mmol/L | EXTERNAL | | | | | | LAB | | + + + + + + | Glucose, | 66Comment: SPECIMEN | 65 - 99 mg/dL | EXTERNAL | | | Fasting | SLIGHTLY HEMOLYZED | | LAB | | + + + + + + | BUN | 13 | 8 - 25 mg/dL | EXTERNAL | | | | | | LAB | | + + + + + + | Creatinine | 7.1 (H)Comment: SPECIMEN | 0.50 - 1.00 | EXTERNAL | | | | SLIGHTLY HEMOLYZED | mg/dL | LAB | | + [...] | | | | | performed at [facility], [address] | | | | | | [facility], | | | | | | [place] [address] | | | | + + + + + + + + | Specimen | + + | Blood specimen | | (specimen) | + + + +---------+ + + | Performing | Address | City/State/Zipcode | Phone Number | | Organization | | | | + +---------+ + + | EXTERNAL LAB | | | | + +---------+ + + Vancomycin Level (02/08/2019 8:16 AM PDT) + + + + + + | Component | Value | Ref Range | Performed | Pathologist | | | | | At | Signature | + + + + + + | Vancomycin | 15.2Comment: Testing | ug/mL | EXTERNAL | | | Random | performed at [facility] | | LAB | | | | [address];[place], [place] | | | | | | [address] | | | | + + + [...] + +---------+ + + External Lab: CBC (02/08/2019 5:18 AM PDT) + + + + + + | Component | Value | Ref Range | Performed | Pathologist | | | | | At | Signature | + + + + + + | WBC | 13.97 (H) | 3.80 - 11.00 | EXTERNAL | | | | | K/uL | LAB | | + + + + + + | Red Blood | 3.28 (L) | 3.70 - 5.10 | EXTERNAL | | | Cells | | M/uL | LAB | | | Counted | | | | | + + + + + + | Hemoglobin | 9.9 (L) | 11.3 - 15.5 | EXTERNAL | | | | | g/dL | LAB | | + + + + + + | Hematocrit, | 30.9 (L) | 34.0 - 46.0 % | EXTERNAL | | | POC | | | LAB | | + + + + + + | MCV | 94.2 | 80.0 - 100.0 fl | EXTERNAL | | | | | | LAB | | + + + + + + | MCH | 30.1 | 27.0 - 34.0 pg | EXTERNAL | | | | | | LAB | | + + + + + + | MCHC | 31.9 (L) | 32.0 - 35.5 | EXTERNAL | | | | | g/dL | LAB | | + + + + + + | RDW-CV | 51.6 | 37 - 53 fl | EXTERNAL | | | | | | LAB | | + + + + + + | Platelet | 262 | 150 - 400 K/uL | EXTERNAL [...] + + + + | Segmented | 69 | % | EXTERNAL | | | Neutrophils | | | LAB | | | Manual | | | | | + + + + + + | % Bands | 2 | % | EXTERNAL | | | | | | LAB | | + + + + + + | % | 1 | % | EXTERNAL | | | 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 | | | | | + + + + + + | Lymphocytes | 23 | % | EXTERNAL | | | Manual | | | LAB | | + + + + + + | Monocytes | 3 | % | EXTERNAL | | | Manual | | | LAB | | + + + + + + | Eosinophils | 2 | % | EXTERNAL | | | Manual | | | LAB | | + + + + + + | Absolute | 9.64 (H) | 1.90 - 7.40 | EXTERNAL | | | Neutrophils | | K/uL | LAB | | + + + + + + | Bands | 0.28 (H) | 0.00 - 0.20 | EXTERNAL | | | Manual | | K/uL | LAB | | + + + + + + | Absolute | 0.14 (H) | K/uL | EXTERNAL | | | 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 | | | | | + + + + + + | Absolute | 3.21 | 1.00 - 3.90 | EXTERNAL | | | Lymphocytes | | K/uL | LAB | | + + + + + + | Absolute | 0.42 | 0.00 - 0.80 | EXTERNAL | [...] + + + + | RBC | 1+Comment: HYPONORMAL | | EXTERNAL | | | Morphology | PLT MORPHTesting | | LAB | | | | performed at [facility] | | | | | | [address];[place], [place] | | | | | | [address] | | | | | | | | | | + + + + + + + + | Specimen | + + | | + + + +---------+ + + | Performing | Address | City/State/Zipcode | Phone Number | | Organization | | | | + +---------+ + + | EXTERNAL LAB | | | | + +---------+ + + Potassium (02/08/2019 5:18 AM PDT) + + + + + + | Component | Value | Ref Range | Performed | Pathologist | | | | | At | Signature | + + + + + + | K | 4.2Comment: SPECIMEN | 3.5 - 4.9 | EXTERNAL | | | | SLIGHTLY | mmol/L | LAB | | | | HEMOLYZEDTesting | | | | | | performed at [facility], [address] | | | | | | [address], | | | | | | [place] [address] | | | | + + + [...] + +---------+ + + Basic Metabolic Panel (02/08/2019 5:18 AM PDT) + + + + + + | Component | Value | Ref Range | Performed | Pathologist | | | | | At | Signature | + + + + + + | Na | 140 | 135 - 145 | EXTERNAL | | | | | mmol/L | LAB | | + + + + + + | K | 4.3Comment: SPECIMEN | 3.5 - 4.9 | EXTERNAL | | | | SLIGHTLY HEMOLYZED | mmol/L | LAB | | + + + + + + | Cl | 103 | 99 - 109 mmol/L | EXTERNAL [...] + + + + | Glucose, | 68Comment: SPECIMEN | 65 - 99 mg/dL | EXTERNAL | | | Fasting | SLIGHTLY HEMOLYZED | | LAB | | + + + + + + | BUN | 33 (H) | 8 - 25 mg/dL | EXTERNAL | | | | | | LAB | | + + + + + + | Creatinine | 12.4 (H)Comment: | 0.50 - 1.00 | EXTERNAL [...] | | | | | performed at [facility], [address] | | | | | | [address], | | | | | | [place] [address] | | | | + + + [...] + +---------+ + + External Lab: CBC (02/07/2019 6:45 AM PDT) + + + + + + | Component | Value | Ref Range | Performed | Pathologist | | | | | At | Signature | + + + + + + | WBC | 13.89 (H) | 3.80 - 11.00 | EXTERNAL | | | | | K/uL | LAB | | + + + + + + | Red Blood | 3.16 (L) | 3.70 - 5.10 | EXTERNAL [...] + + + + | MCV | 94.3 | 80.0 - 100.0 fl | EXTERNAL | | | | | | LAB | | + + + + + + | MCH | 29.7 | 27.0 - 34.0 pg | EXTERNAL | | | | | | LAB | | + + + + + + | MCHC | 31.5 (L) | 32.0 - 35.5 | EXTERNAL | | | | | g/dL | LAB | | + + + + + + | RDW-CV | 50.3 | 37 - 53 fl | EXTERNAL | | | | | | LAB | | + + + + + + | Platelet | 238 | 150 - 400 K/uL | EXTERNAL | | | Count | | | LAB | | | Plasma | | | | | + + + + + + | MPV | 8.2 | fl | EXTERNAL | | | | | | LAB | | + + + + + + | Differentia | AUTOMATED | | EXTERNAL | | | l Type | | | LAB | | + + + + + + | % Segmented | 78.50 | % | EXTERNAL | | | | | | LAB | | | Neutrophils | | | | | + + + + + + | % | 13.31 | % | EXTERNAL | | | Lymphocytes | | | LAB | | + + + + + + | % Monocytes | 5.51 | % | EXTERNAL | | | | | | LAB | | + + + + + + | % | 2.02 | % | EXTERNAL | | | Eosinophils | | | LAB | | + + + + + + | % Basophils | 0.66 | % | EXTERNAL | | | | | | LAB | | + + + + + + | Absolute | 10.90 (H) | 1.90 - 7.40 | EXTERNAL | | | Segmented | | K/uL | LAB | | | Neutrophils | | | | | + + + + + + | Absolute | 1.85 | 1.00 - 3.90 | EXTERNAL | | | Lymphocytes | | K/uL | LAB | | + + + + + + | Absolute | 0.77 | 0.00 - 0.80 | EXTERNAL | | | Monocytes | | K/uL | LAB | | + + + + + + | Absolute | 0.28 | 0.00 - 0.50 | EXTERNAL | | | Eosinophils | | K/uL | LAB | | + + + + + + | Absolute | 0.09 | 0.00 - 0.10 | EXTERNAL | [...] | | | | | performed at [facility] [id number] | | | | | | [address];[place], [place] | | | | | | [id number] | | | | + + + [...] + +---------+ + + Basic Metabolic Panel (02/07/2019 6:45 AM PDT) + + + + + + | Component | Value | Ref Range | Performed | Pathologist | | | | | At | Signature | + + + + + + | Na | 141 | 135 - 145 | EXTERNAL | | | | | mmol/L | LAB | | + + + + + + | K | 3.9 | 3.5 - 4.9 | EXTERNAL | [...] + + + + | BUN | 116 (H) | 8 - 25 mg/dL | EXTERNAL | | | | | | LAB | | + + + + + + | Creatinine | 9.48 (H) | 0.50 - 1.00 | EXTERNAL | | | | | mg/dL | LAB | | + + + + + + | BUN/Creatin | 12 | | EXTERNAL | | | ine Ratio | | | LAB | | + + + + + + | Calcium | 7.8 (L) | 8.5 - 10.5 | EXTERNAL | | | | | mg/dL | LAB | | + + + + + + | Estimated | 5 (L)Comment: GFR <60: | mL/min/1.73m2 | EXTERNAL [...] | | | | | performed at [facility] [place] | | | | | | [address];[place], [place] | | | | | | [address] | | | | + + + [...] + +---------+ + + External Lab: CBC (02/06/2019 5:19 AM PDT) + + + + + + | Component | Value | Ref Range | Performed | Pathologist | | | | | At | Signature | + + + + + + | WBC | 13.68 (H) | 3.80 - 11.00 | EXTERNAL | | | | | K/uL | LAB | | + + + + + + | Red Blood | 3.04 (L) | 3.70 - 5.10 | EXTERNAL | | | Cells | | M/uL | LAB | | | Counted | | | | | + + + + + + | Hemoglobin | 9.0 (L) | 11.3 - 15.5 | EXTERNAL | | | | | g/dL | LAB | | + + + + + + | Hematocrit, | 27.8 (L) | 34.0 - 46.0 % | EXTERNAL | | | POC | | | LAB | | + + + + + + | MCV | 91.4 | 80.0 - 100.0 fl | EXTERNAL [...] + + + + | RDW-CV | 46.8 | 37 - 53 fl | EXTERNAL | | | | | | LAB | | + + + + + + | Platelet | 250 | 150 - 400 K/uL | EXTERNAL | | | Count | | | LAB | | | Plasma | | | | | + + + + + + | MPV | 8.2 | fl | EXTERNAL | | | | | | LAB | | + + + + + + | Differentia | MANUAL | | EXTERNAL | | | l Type | | | LAB | | + + + + + + | Segmented | 76 | % | EXTERNAL | | | Neutrophils | | | LAB | | | Manual | | | | | + + + + + + | % Bands | 3 | % | EXTERNAL | [...] + + + + | Eosinophils | 1 | % | EXTERNAL | | | Manual | | | LAB | | + + + + + + | Absolute | 10.39 (H) | 1.90 - 7.40 | EXTERNAL | | | Neutrophils | | K/uL | LAB | | + + + + + + | Bands | 0.41 (H) | 0.00 - 0.20 | EXTERNAL | | | Manual | | K/uL | LAB | | + + + + + + | Absolute | 1.78 | 1.00 - 3.90 | EXTERNAL | | | Lymphocytes | | K/uL | LAB | | + + + + + + | Absolute | 0.96 (H) | 0.00 - 0.80 | EXTERNAL | | | Monocytes | | K/uL | LAB | | + + + + + + | Absolute | 0.14 | 0.00 - 0.50 | EXTERNAL | | | Eosinophils | | K/uL | LAB | | + + + + + + | RBC | RBC AND PLT MORPHOLOGY | | EXTERNAL | | | Morphology | APPEAR NORMALComment: | | LAB | | | | Testing performed at | | | | | | [facility], [address] | | | | | | [place] | | | | | | [address] | | | | + + + [...] + +---------+ + + Basic Metabolic Panel (02/06/2019 5:19 AM PDT) + + + + + + | Component | Value | Ref Range | Performed | Pathologist | | | | | At | Signature | + + + + + + | Na | 139 | 135 - 145 | EXTERNAL | | | | | mmol/L | LAB | | + + + + + + | K | 3.9 | 3.5 - 4.9 | EXTERNAL | [...] + + + + | Glucose, | 73 | 65 - 99 mg/dL | EXTERNAL | | | Fasting | | | LAB | | + + + + + + | BUN | 16 | 8 - 25 mg/dL | EXTERNAL | | | | | | LAB | | + + + + + + | Creatinine | 8.0 (H) | 0.50 - 1.00 | EXTERNAL | | | | | mg/dL | LAB | | + + + + + + | BUN/Creatin | 2 | | EXTERNAL | | | ine Ratio | | | LAB | | + + + + + + | Calcium | 7.4 (L) | 8.5 - 10.5 | EXTERNAL [...] | | | | | performed at [facility], [address] | | | | | [facility], | | | | | | [place] [address] | | | | + + + [...] + +---------+ + + ECG 12 lead (2019 5:30 PM PDT) + + + + + + | Component | Value | Ref Range | Performed | Pathologist | | | | | At | Signature | + + + + + + | DIAGNOSIS: | Normal sinus rhythmLow | | EXTERNAL | | | | voltage QRSNonspecific | | LAB | | | | ST and T wave | | | | | | abnormalityAbnormal | | | | | | ECGWhen compared with | | | | | | ECG of 01-FEB-2019 | | | | | | 05:52,Premature | | | | | | ventricular complexes | | | | | | are no longer PresentQT | | | | | | has shortenedConfirmed | | | | | | by ABDI CAMARENA ([id number]) on | | | | | | 02/06/2019 3:30:51 PM | | | | + + + + + + + + | Specimen | + + | | + + + + + | Narrative | Performed At | + + + | Historically converted procedure from [facility] environment | EXTERNAL LAB | + + + + +---------+ + + | Performing | Address | City/State/Zipcode | Phone Number | | Organization | | | | + +---------+ + + | EXTERNAL LAB | | | | + +---------+ + + VAS Arm Bilateral Mapping For Dialysis (2019 11:05 AM PDT) + + | Specimen | + + | | + + + + + | Impressions | Performed At | + + + | 1. No evidence of superficial or deep venous thrombosis in the upper | | | extremity veins. 2. Triphasic waveform noted in all arteries. 3. | | | Bilateral upper extremity vein mapping measurements as above. Signed | | | by: DO Plascencia Edward Sign Date/Time: 2019 11:54 AM | | + + + + + + | Narrative | Performed At | + + + | UPPER EXTREMITY VEIN MAPPING CLINICAL INFORMATION: AV access | | | creation COMPARISON: None PROCEDURE: Duplex evaluation of the | | | veins of the upper extremities. All measurements in mm. Top number is | | | depth of vein. Bottom number is diameter of vein. Measurements | | | performed with tourniquet. FINDINGS: RIGHT ARM CEPHALIC VEIN | | | (measurements given as diameter / depth in mm) Insertion: 2.9 mm/21 | | | mm Upper Humerus: 3.7 mm/15.6 mm Mid Humerus: 2.9 mm/11.3 mm Elbow: | | | 2.1 mm/10 mm Upper Forearm: 2.2 mm/8.9 mm Mid Forearm: 2.4 mm/8.2 | | | mm Wrist: 1.5 mm/3.9 mm BASILIC VEIN (measurements given as diameter | | | / depth in mm) Upper Humerus: Not measured. Mid Humerus: 3.7 | | | mm/15.3 mm Elbow: 4.6 mm/14.2 mm Upper Forearm: 4.1 mm/3.5 mm Mid | | | Forearm: 4.3 mm/2.8 mm Wrist: Not visualized. BRACHIAL VEIN | | | (measurements given as diameter in mm) Upper Humerus: 3.5 mm Mid | | | Humerus: 3.6 mm Elbow: 3.4 mm AXILLARY VEIN: 8.2 mm BRACHIAL ARTERY | | | DISTAL: 3.8 mm RADIAL ARTERY WRIST: 1.7 mm ULNAR ARTERY WRIST: 2.2 | | | mm LEFT ARM CEPHALIC VEIN (measurements given as diameter / depth in | | | mm) Insertion: 3.2 mm/17.4 mm Upper Humerus: 3.5 mm/7.4 mm Mid | | | Humerus: 3.6 mm/5.9 mm Elbow: 2.3 mm/3.9 mm Upper Forearm: 3.8 | | | mm/5.4 mm Mid Forearm: 3.8 mm/7.1 mm Wrist: 2.9 mm/5.0 mm BASILIC | | | VEIN (measurements given as diameter / depth in mm) Upper Humerus: | | | 3.2 mm/16.1 mm Mid Humerus: 3.2 mm/10.8 mm Elbow: 3.0 mm/6.8 mm | | | Upper Forearm: 2.9 mm/4.3 mm Mid Forearm: 1.5 mm/3.2 mm Wrist: Not | | | visualized. BRACHIAL VEIN (measurements given as diameter in mm) | | | Upper Humerus: 3.0 mm Mid Humerus: 3.2 mm Elbow: 4.1 mm AXILLARY | | | VEIN: 5.5 mm BRACHIAL ARTERY DISTAL: 4.2 mm RADIAL ARTERY WRIST: 2.0 | | | mm ULNAR ARTERY WRIST: 2.7 mm | | + + + + + | Procedure Note | + + | Endy Rad Conversion - 06/22/2019 11:30 PM PDT UPPER EXTREMITY VEIN MAPPING | | CLINICAL INFORMATION: | | AV access creation | | COMPARISON: | | None | | PROCEDURE: | | Duplex evaluation of the veins of the upper extremities. All | | measurements in mm. Top number is depth of vein. Bottom number is | | diameter of vein. Measurements performed with tourniquet. | | FINDINGS: | | RIGHT ARM | | CEPHALIC VEIN (measurements given as diameter / depth in mm) | | Insertion: 2.9 mm/21 mm | | Upper Humerus: 3.7 mm/15.6 mm | | Mid Humerus: 2.9 mm/11.3 mm | | Elbow: 2.1 mm/10 mm | | Upper Forearm: 2.2 mm/8.9 mm | | Mid Forearm: 2.4 mm/8.2 mm | | Wrist: 1.5 mm/3.9 mm | | BASILIC VEIN (measurements given as diameter / depth in mm) | | Upper Humerus: Not measured. | | Mid Humerus: 3.7 mm/15.3 mm | | Elbow: 4.6 mm/14.2 mm | | Upper Forearm: 4.1 mm/3.5 mm | | Mid Forearm: 4.3 mm/2.8 mm | | Wrist: Not visualized. | | BRACHIAL VEIN (measurements given as diameter in mm) | | Upper Humerus: 3.5 mm | | Mid Humerus: 3.6 mm | | Elbow: 3.4 mm | | AXILLARY VEIN: 8.2 mm | | BRACHIAL ARTERY DISTAL: 3.8 mm | | RADIAL ARTERY WRIST: 1.7 mm | | ULNAR ARTERY WRIST: 2.2 mm | | LEFT ARM | | CEPHALIC VEIN (measurements given as diameter / depth in mm) | | Insertion: 3.2 mm/17.4 mm | | Upper Humerus: 3.5 mm/7.4 mm | | Mid Humerus: 3.6 mm/5.9 mm | | Elbow: 2.3 mm/3.9 mm | | Upper Forearm: 3.8 mm/5.4 mm | | Mid Forearm: 3.8 mm/7.1 mm | | Wrist: 2.9 mm/5.0 mm | | BASILIC VEIN (measurements given as diameter / depth in mm) | | Upper Humerus: 3.2 mm/16.1 mm | | Mid Humerus: 3.2 mm/10.8 mm | | Elbow: 3.0 mm/6.8 mm | | Upper Forearm: 2.9 mm/4.3 mm | | Mid Forearm: 1.5 mm/3.2 mm | | Wrist: Not visualized. | | BRACHIAL VEIN (measurements given as diameter in mm) | | Upper Humerus: 3.0 mm | | Mid Humerus: 3.2 mm | | Elbow: 4.1 mm | | AXILLARY VEIN: 5.5 mm | | BRACHIAL ARTERY DISTAL: 4.2 mm | | RADIAL ARTERY WRIST: 2.0 mm | | ULNAR ARTERY WRIST: 2.7 mm | | IMPRESSION: | | 1. No evidence of superficial or deep venous thrombosis in the upper | | extremity veins. | | 2. Triphasic waveform noted in all arteries. | | 3. Bilateral upper extremity vein mapping measurements as above. | | Signed by: DO Plascencia Edward | | Sign Date/Time: 2019 11:54 AM | + + Hepatitis Panel, Chronic (2019 9:15 AM PDT) + + + + + + | Component | Value | Ref Range | Performed | Pathologist | | | | | At | Signature | + + + + + + | Hep A Total | NON REACTIVE | | EXTERNAL | | | Ab Interp | | | LAB | | + + + + + + | HEP B | NON REACTIVE | | EXTERNAL | | | SURFACE | | | LAB | | | ANTIBODY | | | | | + + + + + + | Hepatitis B | NON REACTIVE | | EXTERNAL | | | Core Ab | | | LAB | | | Total | | | | | + + + + + + | HEP B | 0.60Comment: <1.00 | IV | EXTERNAL | | | SURFACE | Non Immune1.00 OR | | LAB | | | ANTIBODY | MORE Indicates | | | | | | vaccine response or | | | | | | response to HBV | | | | | | infection. An Index | | | | | | Value (IV) of 1.00 is | | | | | | equivalent to 10 mIU/mL. | | | | | | Samples with an IV of | | | | | | 1.00 or greater are | | | | | | considered reactive | | | | | | (protected) in | | | | | | accordance with CDC | | | | | | Guidelines. | | | | + + + + + + | HCV Ab | NON REACTIVE | | EXTERNAL | | | | | | LAB | | + + + + + + | Hepatitis | No serologic evidence of | | EXTERNAL | | | Interpretat | HAV, HBV, or HCV | | LAB | | | ion | infection.Comment: | | | | | | Testing performed at | | | | | | [facility], [address] | | | | | | [place] | | | | | | [address] | | | | + + + + + + + + | Specimen | + + | | + + + +---------+ + + | Performing | Address | City/State/Zipcode | Phone Number | | Organization | | | | + +---------+ + + | EXTERNAL LAB | | | | + +---------+ + + External Lab: CBC (2019 9:15 AM PDT) + + + + + + | Component | Value | Ref Range | Performed | Pathologist | | | | | At | Signature | + + + + + + | WBC | 14.38 (H) | 3.80 - 11.00 | EXTERNAL | | | | | K/uL | LAB | | + + + + + + | Red Blood | 3.26 (L) | 3.70 - 5.10 | EXTERNAL [...] + + + + | MCV | 91.6 | 80.0 - 100.0 fl | EXTERNAL [...] + + + + | Platelet | 298 | 150 - 400 K/uL | EXTERNAL | | | Count | | | LAB | | | Plasma | | | | | + + + + + + | MPV | 7.9 | fl | EXTERNAL | | | | | | LAB | | + + + + + + | Differentia | AUTOMATED | | EXTERNAL | | | l Type | | | LAB | | + + + + + + | % Segmented | 83.77 | % | EXTERNAL | | | | | | LAB | | | Neutrophils | | | | | + + + + + + | % | 9.05 | % | EXTERNAL | | | Lymphocytes | | | LAB | | + + + + + + | % Monocytes | 5.31 | % | EXTERNAL | | | | | | LAB | | + + + + + + | % | 1.53 | % | EXTERNAL | | | Eosinophils | | | LAB | | + + + + + + | % Basophils | 0.34 | % | EXTERNAL | | | | | | LAB | | + + + + + + | Absolute | 12.25 (H) | 1.90 - 7.40 | EXTERNAL | | | Segmented | | K/uL | LAB | | | Neutrophils | | | | | + + + + + + | Absolute | 1.32 | 1.00 - 3.90 | EXTERNAL | [...] | | | | | performed at [facility];[address] | | | | | | [facility];[place], [place] | | | | | | [address] | | | | + + + + + + + + | Specimen | + + | Blood specimen | | (specimen) | + + + +---------+ + + | Performing | Address | City/State/Zipcode | Phone Number | | Organization | | | | + +---------+ + + | EXTERNAL LAB | | | | + +---------+ + + Vancomycin Level (2019 9:15 AM PDT) + + + + + + | Component | Value | Ref Range | Performed | Pathologist | | | | | At | Signature | + + + + + + | Vancomycin | 26.2Comment: Testing | ug/mL | EXTERNAL | | | Random | performed at [facility];[address] | | LAB | | | | [address];[place], [place] | | | | | | [address] | | | | + + + [...] + +---------+ + + Basic Metabolic Panel (2019 9:15 AM PDT) + + + + + + | Component | Value | Ref Range | Performed | Pathologist | | | | | At | Signature | + + + + + + | Na | 141 | 135 - 145 | EXTERNAL | | | | | mmol/L | LAB | | + + + + + + | K | 3.9 | 3.5 - 4.9 | EXTERNAL | | | | | mmol/L | LAB | | + + + + + + | Cl | 107 | 99 - 109 mmol/L | EXTERNAL | | | | | | LAB | | + + + + + + | CO2 | 24 | 23 - 32 mmol/L | EXTERNAL | | | | | | LAB | | + + + + + + | Anion Gap | 14 | 5 - 20 mmol/L | EXTERNAL | | | | | | LAB | | + + + + + + | Glucose, | 89 | 65 - 99 mg/dL | EXTERNAL | | | Fasting | | | LAB | | + + + + + + | BUN | 35 (H) | 8 - 25 mg/dL | EXTERNAL | | | | | | LAB | | + + + + + + | Creatinine | 13.50 (H) | 0.50 - 1.00 | EXTERNAL | | | | | mg/dL | LAB | | + + + + + + | BUN/Creatin | 3 | | EXTERNAL | | | ine Ratio | | | LAB | | + + + + + + | Calcium | 7.3 (L) | 8.5 - 10.5 | EXTERNAL [...] | | | | | performed at [facility];[address] | | | | | | [facility];[place], [place] | | | | | | [address] | | | | + + + + + + + + | Specimen | + + | Blood specimen | | (specimen) | + + + +---------+ + + | Performing | Address | City/State/Zipcode | Phone Number | | Organization | | | | + +---------+ + + | EXTERNAL LAB | | | | + +---------+ + + IR Placement Tunneled CV Cath (2019 7:57 AM PDT) + + | Specimen | + + | | + + + + + | Narrative | Performed At | + + + | DATE OF PROCEDURE: 2019 SURGEON: Qasim Pederson MD | | | PREOPERATIVE DIAGNOSIS: 1. End stage renal disease requiring | | | hemodialysis POSTOPERATIVE DIAGNOSIS: Same PROCEDURES: | | | 1.Percutaneous access of right internal jugular vein under ultrasound | | | guidance and placement of tunneled hemodialysis catheter | | | SEDATION:?Moderate conscious sedation was administered during the | | | procedure by the physician and nursing staff with continuous | | | hemodynamic monitoring throughout the procedure.?Total Sedation: | | | Versed: 2mg; Fentanyl: 100mcg; Total Sedation Time: 22minutes | | | ANTIBIOTIC PROPHYLAXIS: none FLUOROSCOPY TIME: 0.1min, Dose 1mGy | | | EBL: Minimal COMPLICATIONS: None INDICATIONS: This is a 39 | | | y.o. female patient with end stage renal disease requiring | | | hemodialysis.The patient has been evaluated by his auto overhauler who | | | determined that he is a suitable candidate to undergo hemodialysis. | | | The patient has received appropriate training regarding | | | hemodialysis. The patient understands the benefit and purpose of the | | | planned procedure of tunneled hemodialysis catheter insertion is to | | | allow the patient to receive hemodialysis while waiting for a long | | | term hemodialysis access such as arteriovenous venous fistula or | | | graft to be created. The patient also understands the risks and | | | complications of this procedure which include bleeding, vessel | | | perforation, vessel dissection, nerve and arterial injury, and | | | pneumothorax. The patient has accepted these benefits and risks and | | | agreed to undergo the planned procedure. PROCEDURE IN DETAIL: The | | | patient was taken to the operating room and placed on the table in the | | | supine position. The patient's right neck and chest region was | | | prepped sterilely and then draped in a standard fashion. The patient | | | was given local and conscious sedation anesthesia. Appropriate time | | | out was performed whereby the patient and site of surgery were | | | identified. Percutaneous access of the right internal jugular vein was | | | obtained under ultrasound guidance. A 0.035' guidewire was placed in | | | the right internal jugular vein and confirmed under fluoroscopy | | | guidance. The skin tract was dilated with serial dilators. A peel away | | | sheath was inserted over the guidewire. A hemodialysis catheter was | | | tunneled under the skin from the chest to the neck. Next the | | | guidewire and inner dilator of the peel away sheath was removed. The | | | tunneled hemodialysis catheter was placed into the internal jugular | | | vein over a peel away sheath. The catheter tip was positioned in the | | | atrio caval junction and the position was confirmed with | | | fluoroscopy. Heparinized saline solution was injected in the double | | | lumen tunneled hemodialysis catheter and the catheter was securely | | | anchored to the skin using 3-0 nylon sutures. Standard dressing was | | | applied over the tunneled hemodialysis catheter in the usual | | | fashion. Hemostasis was achieved without complications. The patient | | | tolerated the procedure well and suffered no complications. I was | | | present throughout the entire procedure. | | + + + + + | Procedure Note | + + | Endy, Rad Conversion - 06/22/2019 11:30 PM PDT DATE OF PROCEDURE: 2019 SURGEON: | | Qasim Pederson MD PREOPERATIVE DIAGNOSIS:1. End stage renal disease requiring hemodialysis | | POSTOPERATIVE DIAGNOSIS: Same PROCEDURES:1.Percutaneous access of right internal | | jugular vein under ultrasound guidance and placement of tunneled hemodialysis catheter | | SEDATION:?Moderate conscious sedation was administered during the procedure by the | | physician and nursing staff with continuous hemodynamic monitoring throughout the | | procedure.?Total Sedation: Versed: 2mg; Fentanyl: 100mcg; Total Sedation Time: 22minutes | | ANTIBIOTIC PROPHYLAXIS: none FLUOROSCOPY TIME: 0.1min, Dose 1mGy EBL: Minimal | | COMPLICATIONS: None INDICATIONS: This is a 39 y.o. female patient with end stage renal | | disease requiring hemodialysis.The patient has been evaluated by his auto overhauler who | | determined that he is a suitable candidate to undergo hemodialysis. The patient has | | received appropriate training regarding hemodialysis. The patient understands the | | benefit and purpose of the planned procedure of tunneled hemodialysis catheter insertion | | is to allow the patient to receive hemodialysis while waiting for a residential | | hemodialysis access such as arteriovenous venous fistula or graft to be created. The | | patient also understands the risks and complications of this procedure which include | | bleeding, vessel perforation, vessel dissection, nerve and arterial injury, and | | pneumothorax. The patient has accepted these benefits and risks and agreed to undergo | | the planned procedure. PROCEDURE IN DETAIL: The patient was taken to the operating room | | and placed on the table in the supine position. The patient's right neck and chest | | region was prepped sterilely and then draped in a standard fashion. The patient was | | given local and conscious sedation anesthesia. Appropriate time out was performed | | whereby the patient and site of surgery were identified. Percutaneous access of the | | right internal jugular vein was obtained under ultrasound guidance. A 0.035' guidewire | | was placed in the right internal jugular vein and confirmed under fluoroscopy guidance. | | The skin tract was dilated with serial dilators. A peel away sheath was inserted over | | the guidewire. A hemodialysis catheter was tunneled under the skin from the chest to the | | neck. Next the guidewire and inner dilator of the peel away sheath was removed. The | | tunneled hemodialysis catheter was placed into the internal jugular vein over a peel | | away sheath. The catheter tip was positioned in the atrio caval junction and the | | position was confirmed with fluoroscopy. Heparinized saline solution was injected in the | | double lumen tunneled hemodialysis catheter and the catheter was securely anchored to | | the skin using 3-0 nylon sutures. Standard dressing was applied over the tunneled | | hemodialysis catheter in the usual fashion. Hemostasis was achieved without | | complications. The patient tolerated the procedure well and suffered no complications. I | | was present throughout the entire procedure. Electronically signed by Qasim Pederson on | | 2019 7:46 PM | |hemodialysis catheter in the usual fashion. Hemostasis was achieved without complications. The patient tolerated the procedure well and suffered no complications. I was present throug hout the entire procedure. | | | | | + + US Guided Vascular Access (2019 7:31 AM PDT) + + | Specimen | + + | | + + + + + | Narrative | Performed At | + + + | This Point of Care (POC) ultrasound image has been reviewed and | | | interpreted by the physician identified as the performing physician in | | | the associated interpretation and report. | | + + + + + | Procedure Note | + + | Migue Schumacher - 06/22/2019 11:30 PM PDT This Point of Care (POC) ultrasound | | image has been reviewed andinterpreted by the physician identified as the performing | | physician in theassociated interpretation and report. | | | + + Potassium (2019 2:19 AM PDT) + + + + + + | Component | Value | Ref Range | Performed | Pathologist | | | | | At | Signature | + + + + + + | K | 4.0Comment: Testing | 3.5 - 4.9 | EXTERNAL | | | | performed at [facility];[address] | mmol/L | LAB | | | | [address];[place], [place] | | | | | | [address] | | | | + + + + + + + + | Specimen | + + | Blood specimen | | (specimen) | + + + +---------+ + + | Performing | Address | City/State/Zipcode | Phone Number | | Organization | | | | + +---------+ + + | EXTERNAL LAB | | | | + +---------+ + + Potassium (02/04/2019 10:34 PM PDT) + + + + + + | Component | Value | Ref Range | Performed | Pathologist | | | | | At | Signature | + + + + + + | K | 3.4 (L)Comment: Testing | 3.5 - 4.9 | EXTERNAL | | | | performed at [facility];[address] | mmol/L | LAB | | | | [address];[place], [place] | | | | | | [address] | | | | + + + + + + + + | Specimen | + + | Blood specimen | | (specimen) | + + + +---------+ + + | Performing | Address | City/State/Zipcode | Phone Number | | Organization | | | | + +---------+ + + | EXTERNAL LAB | | | | + +---------+ + + HISTORICAL MICROBIOLOGY RESULT (02/04/2019 5:05 PM PDT) + + | Specimen | + + | | + + + + + | Narrative | Performed At | + + + | Specimen Description CATHETER TIP CULTURE | EXTERNAL LAB | | NO GROWTH 2 DAYS | | + + + + +---------+ + + | Performing | Address | City/State/Zipcode | Phone Number | | Organization | | | | + +---------+ + + | EXTERNAL LAB | | | | + +---------+ + + External Lab: [facility] (02/04/2019 6:47 AM PDT) + + + + + + | Component | Value | Ref Range | Performed | Pathologist | | | | | At | Signature | + + + + + + | WBC | 15.37 (H) | 3.80 - 11.00 | EXTERNAL | | | | | K/uL | LAB | | + + + + + + | Red Blood | 3.23 (L) | 3.70 - 5.10 | EXTERNAL | | | Cells | | M/uL | LAB | | | Counted | | | | | + + + + + + | Hemoglobin | 9.8 (L) | 11.3 - 15.5 | EXTERNAL | | | | | g/dL | LAB | | + + + + + + | Hematocrit, | 28.8 (L) | 34.0 - 46.0 % | EXTERNAL | | | POC | | | LAB | | + + + + + + | MCV | 89.3 | 80.0 - 100.0 fl | EXTERNAL [...] + + + + | Platelet | 332 | 150 - 400 K/uL | EXTERNAL | | | Count | | | LAB | | | Plasma | | | | | + + + + + + | MPV | 7.5 | fl | EXTERNAL | | | | | | LAB | | + + + + + + | Differentia | AUTOMATED | | EXTERNAL | | | l Type | | | LAB | | + + + + + + | % Segmented | 80.86 | % | EXTERNAL | | | | | | LAB | | | Neutrophils | | | | | + + + + + + | % | 12.55 | % | EXTERNAL | | | Lymphocytes | | | LAB | | + + + + + + | % Monocytes | 4.68 | % | EXTERNAL | | | | | | LAB | | + + + + + + | % | 1.35 | % | EXTERNAL | | | Eosinophils | | | LAB | | + + + + + + | % Basophils | 0.56 | % | EXTERNAL | | | | | | LAB | | + + + + + + | Absolute | 12.43 (H) | 1.90 - 7.40 | EXTERNAL | | | Segmented | | K/uL | LAB | | | Neutrophils | | | | | + + + + + + | Absolute | 1.93 | 1.00 - 3.90 | EXTERNAL | | | Lymphocytes | | K/uL | LAB | | + + + + + + | Absolute | 0.72 | 0.00 - 0.80 | EXTERNAL | | | Monocytes | | K/uL | LAB | | + + + + + + | Absolute | 0.21 | 0.00 - 0.50 | EXTERNAL | | | Eosinophils | | K/uL | LAB | | + + + + + + | Absolute | 0.09 | 0.00 - 0.10 | EXTERNAL | [...] | | | | | performed at [facility] | | | | | | [address];[place] | | | | | | [address] | | | | + + + [...] + +---------+ + + , Serum, Qual (02/04/2019 6:47 AM PDT) + + + + + + | Component | Value | Ref Range | Performed | Pathologist | | | | | At | Signature | + + + + + + | HCG | NEGATIVEComment: Testing | | EXTERNAL | | | QUALITATIVE | performed at [facility];[address] | | LAB | | | | [address];[place] | | | | | | [address] | | | | + + + [...] + +---------+ + + Renal Function Panel (02/04/2019 6:47 AM PDT) + + + + + + | Component | Value | Ref Range | Performed | Pathologist | | | | | At | Signature | + + + + + + | Na | 142 | 135 - 145 | EXTERNAL | [...] + + + + | Glucose, | 87 | 65 - 99 mg/dL | EXTERNAL | | | Fasting | | | LAB | | + + + + + + | BUN | 29 (H) | 8 - 25 mg/dL | EXTERNAL | | | | | | LAB | | + + + + + + | Creatinine | 12.15 (H) | 0.50 - 1.00 | EXTERNAL | | | | | mg/dL | LAB | | + + + + + + | Calcium | 7.4 (L) | 8.5 - 10.5 | EXTERNAL | | | | | mg/dL | LAB | | + + + + + + | Albumin | 2.9 (L) | 3.6 - 5.0 g/dL | [...] | | | | | performed at [facility];[address] | | | | | | [facility];[place], [place] | | | | | | [address] | | | | + + + + + + + + | Specimen | + + | | + + + +---------+ + + | Performing | Address | City/State/Zipcode | Phone Number | | Organization | | | | + +---------+ + + | EXTERNAL LAB | | | | + +---------+ + + External Lab: CBC (02/03/2019 6:00 AM PDT) + + + + + + | Component | Value | Ref Range | Performed | Pathologist | | | | | At | Signature | + + + + + + | WBC | 13.61 (H) | 3.80 - 11.00 | EXTERNAL | | | | | K/uL | LAB | | + + + + + + | Red Blood | 3.19 (L) | 3.70 - 5.10 | EXTERNAL | | | Cells | | M/uL | LAB | | | Counted | | | | | + + + + + + | Hemoglobin | 9.6 (L) | 11.3 - 15.5 | EXTERNAL | | | | | g/dL | LAB | | + + + + + + | Hematocrit, | 28.9 (L) | 34.0 - 46.0 % | EXTERNAL | | | POC | | | LAB | | + + + + + + | MCV | 90.5 | 80.0 - 100.0 fl | EXTERNAL [...] + + + + | RDW-CV | 47.7 | 37 - 53 fl | EXTERNAL | | | | | | LAB | | + + + + + + | Platelet | 326 | 150 - 400 K/uL | EXTERNAL [...] + + + + | Segmented | 69 | % | EXTERNAL | | | Neutrophils | | | LAB | | | Manual | | | | | + + + + + + | % | 2 | % | EXTERNAL | | | 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 | | | | | + + + + + + | % | 1 | % | EXTERNAL | | | Myelocytes | | | LAB | | + + + + + + | Lymphocytes | 20 | % | EXTERNAL | | | Manual | | | LAB | | + + + + + + | Monocytes | 5 | % | EXTERNAL | | | Manual | | | LAB | | + + + + + + | Eosinophils | 3 | % | EXTERNAL | | | Manual | | | LAB | | + + + + + + | Absolute | 9.39 (H) | 1.90 - 7.40 | EXTERNAL | | | Neutrophils | | K/uL | LAB | | + + + + + + | Absolute | 0.27 (H) | K/uL | EXTERNAL | | | 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 | | | | | + + + + + + | Absolute | 0.14 (H) | K/uL | EXTERNAL | | | Myelocytes | | | LAB | | + + + + + + | Absolute | 2.72 | 1.00 - 3.90 | EXTERNAL | | | Lymphocytes | | K/uL | LAB | | + + + + + + | Absolute | 0.68 | 0.00 - 0.80 | EXTERNAL | | | Monocytes | | K/uL | LAB | | + + + + + + | Absolute | 0.41 | 0.00 - 0.50 | EXTERNAL | | | Eosinophils | | K/uL | LAB | | + + + + + + | RBC | RBC AND PLT MORPHOLOGY | | EXTERNAL | | | Morphology | APPEAR NORMALComment: | | LAB | | | | Testing performed at | | | | | | [facility], [address] [place] [address] | | | | | | [place] | | | | | | [address] | | | | + + + + + + + + | Specimen | + + | Blood specimen | | (specimen) | + + + +---------+ + + | Performing | Address | City/State/Zipcode | Phone Number | | Organization | | | | + +---------+ + + | EXTERNAL LAB | | | | + +---------+ + + Phosphorus (02/03/2019 6:00 AM PDT) + + + + + + | Component | Value | Ref Range | Performed | Pathologist | | | | | At | Signature | + + + + + + | PHOSPHORUS | 5.6 (H)Comment: Testing | 2.3 - 4.8 mg/dL | EXTERNAL | | | | performed at [facility], [address] | | LAB | | | | [address], | | | | | | [place] [address] | | | | + + + + + + + + | Specimen | + + | Blood specimen | | (specimen) | + + + +---------+ + + | Performing | Address | City/State/Zipcode | Phone Number | | Organization | | | | + +---------+ + + | EXTERNAL LAB | | | | + +---------+ + + Magnesium (02/03/2019 6:00 AM PDT) + + + + + + | Component | Value | Ref Range | Performed | Pathologist | | | | | At | Signature | + + + + + + | Magnesium | 3.2 (H)Comment: Testing | 1.7 - 2.4 mg/dL | EXTERNAL | | | | performed at [facility], [address] | | LAB | | | | [address], | | | | | | [place] [address] | | | | + + + + + + + + | Specimen | + + | Blood specimen | | (specimen) | + + + +---------+ + + | Performing | Address | City/State/Zipcode | Phone Number | | Organization | | | | + +---------+ + + | EXTERNAL LAB | | | | + +---------+ + + Vancomycin Level (02/03/2019 6:00 AM PDT) + + + + + + | Component | Value | Ref Range | Performed | Pathologist | | | | | At | Signature | + + + + + + | Vancomycin | 34.7Comment: Testing | ug/mL | EXTERNAL | | | Random | performed at [facility];[address] | | LAB | | | | [address];[place] | | | | | | [address] | | | | + + + [...] + +---------+ + + Comprehensive Metabolic Panel (02/03/2019 6:00 AM PDT) + + + + + [...] + + + | K | 3.0 (L) | 3.5 - 4.9 | EXTERNAL [...] + + + + | Creatinine | 12.8 (H) | 0.50 - 1.00 | EXTERNAL | | | | | mg/dL | LAB | | + + + + + + | BUN/Creatin | 2 | | EXTERNAL | | | ine Ratio | | | LAB | | + + + + + + | Calcium | 7.5 (L) | 8.5 - 10.5 | EXTERNAL | | | | | mg/dL | LAB | | + + + + + + | Protein, | 5.5 (L) | 6.3 - 8.2 g/dL | EXTERNAL | | | Total | | | LAB | | + + + + + + | Albumin | 1.8 (L) | 3.6 - 5.0 g/dL | EXTERNAL | | | | | | LAB | | + + + + + + | Globulin | 3.7 | 1.3 - 4.9 g/dL | EXTERNAL | | | | | | LAB | | + + + + + + | A/G Ratio | 0.5 (L) | 1.0 - 2.4 | EXTERNAL | | | | | | LAB | | + + + + + + | Bilirubin | 0.2 | 0.1 - 1.5 mg/dL | EXTERNAL | | | Total | | | LAB | | + + + + + + | ALP, | 69 | 35 - 115 U/L | EXTERNAL | | | External | | | LAB | | + + + + + + | AST | 7 (L) | 10 - 45 U/L | EXTERNAL | | | | | | LAB | | + + + + + + | ALT | 12 | 10 - 65 U/L | EXTERNAL [...] | | | | | performed at [facility], [address] | | | | | | [facility], | | | | | | [place] [address] | | | | + + + [...] + +---------+ + + External Lab: CBC (02/02/2019 5:40 AM PDT) + + + + + + | Component | Value | Ref Range | Performed | Pathologist | | | | | At | Signature | + + + + + + | WBC | 13.74 (H) | 3.80 - 11.00 | EXTERNAL | | | | | K/uL | LAB | | + + + + + + | Red Blood | 3.43 (L) | 3.70 - 5.10 | EXTERNAL [...] + + + + | MCV | 91.8 | 80.0 - 100.0 fl | EXTERNAL [...] + + + + | Platelet | 401 (H) | 150 - 400 K/uL | EXTERNAL | | | Count | | | LAB | | | Plasma | | | | | + + + + + + | MPV | 8.4 | fl | EXTERNAL | | | | | | LAB | | + + + + + + | Differentia | MANUAL | | EXTERNAL | | | l Type | | | LAB | | + + + + + + | Segmented | 65 | % | EXTERNAL | | | Neutrophils | | | LAB | | | Manual | | | | | + + + + + + | % | 3 | % | EXTERNAL | | | 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 | | | | | + + + + + + | Lymphocytes | 25 | % | EXTERNAL | | | [...] + + + + | Absolute | 8.93 (H) | 1.90 - 7.40 | EXTERNAL | | | Neutrophils | | K/uL | LAB | | + + + + + + | Absolute | 0.41 (H) | K/uL | EXTERNAL | | | 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 | | | | | + + + + + + | Absolute | 3.44 | 1.00 - 3.90 | EXTERNAL | | | Lymphocytes | | K/uL | LAB | | + + + + + + | Absolute | 0.55 | 0.00 - 0.80 | EXTERNAL | | | Monocytes | | K/uL | LAB | | + + + + + + | Absolute | 0.41 | 0.00 - 0.50 | EXTERNAL | | | Eosinophils | | K/uL | LAB | | + + + + + + | RBC | RBC AND PLT MORPHOLOGY | | EXTERNAL | | | Morphology | APPEAR NORMALComment: | | LAB | | | | Testing performed at | | | | | | [facility], [address] | | | | | | [place] | | | | | | [address] | | | | + + + [...] + +---------+ + + Comprehensive Metabolic Panel (02/02/2019 5:40 AM PDT) + + + + + [...] 25 | 23 - 32 mmol/L | EXTERNAL [...] + + + | Creatinine | 12.6 (H) | 0.50 - 1.00 | EXTERNAL [...] + + + + | Protein, | 6.2 (L) | 6.3 - 8.2 g/dL | [...] + + + + | ALP, | 79 | 35 - 115 U/L | EXTERNAL | | | External | | | LAB | | + + + + + + | AST | 12 | 10 - 45 U/L | EXTERNAL | | | | | | LAB | | + + + + + + | ALT | 13 | 10 - 65 U/L | EXTERNAL [...] | | | | | performed at [facility], [address] | | | | | [address], | | | | | | [place] [address] | | | | + + + [...] + +---------+ + + US Abdomen Limited (02/01/2019 4:26 PM PDT) + + | Specimen | + + | | + + + + + | Impressions | Performed At | + + + | 1. Gallbladder and common bile duct are normal. 2. No acute | | | abnormality of the liver. 3. No hydronephrosis of the right kidney. | | | Signed by: Omar Cervantes Sign Date/Time: 02/01/2019 4:36 PM | | + + + + + + | Narrative | Performed At | + + + | ULTRASOUND ABDOMEN, LIMITED CLINICAL INFORMATION: Right upper | | | quadrant pain since yesterday COMPARISON: US PELVIS WITH ENDOVAGINAL | | | (02/01/2019); CT ABDOMEN AND PELVIS WITHOUT AND WITH CONTRAST AND | | | ANGIOGRAPHY (01/04/2019); ULTRASOUND PELVIS (12/24/2018); PROCEDURE: | | | Evaluation of the gallbladder, if present, common bile duct, liver, | | | and right kidney. FINDINGS: Liver: No focal liver lesion. Minimal | | | ascitic fluid about the liver. Gallbladder/Bile Duct: No gallstones | | | or gallbladder wall thickening. No intrahepatic or extrahepatic | | | biliary dilatation. Common bile duct 3.6 mm. Right kidney: 7.1 cm. | | | No solid renal mass, hydronephrosis or definitive calculi. IVC | | | normal. No ascites. | | + + + + + | Procedure Note | + + | Endy, Rad Conversion - 06/22/2019 11:30 PM PDT ULTRASOUND ABDOMEN, LIMITED | | CLINICAL INFORMATION: | | Right upper quadrant pain since yesterday | | COMPARISON: | | US PELVIS WITH ENDOVAGINAL (02/01/2019); CT ABDOMEN AND PELVIS WITHOUT | | AND WITH CONTRAST AND ANGIOGRAPHY (01/04/2019); ULTRASOUND PELVIS | | (12/24/2018); | | PROCEDURE: | | Evaluation of the gallbladder, if present, common bile duct, liver, and | | right kidney. | | FINDINGS: | | Liver: No focal liver lesion. Minimal ascitic fluid about the liver. | | Gallbladder/Bile Duct: No gallstones or gallbladder wall thickening. No | | intrahepatic or extrahepatic biliary dilatation. Common bile duct 3.6 | | mm. | | Right kidney: 7.1 cm. No solid renal mass, hydronephrosis or definitive | | calculi. | | IVC normal. No ascites. | | IMPRESSION: | | 1. Gallbladder and common bile duct are normal. | | 2. No acute abnormality of the liver. | | 3. No hydronephrosis of the right kidney. | | Signed by: Omar Cervantes | | Sign Date/Time: 02/01/2019 4:36 PM | + + Troponin I (02/01/2019 12:08 PM PDT) + + + + + + | Component | Value | Ref Range | Performed | Pathologist | | | | | At | Signature | + + + + + + | Troponin I, | <0.006Comment: 0.04 | 0.00 - 0.04 | EXTERNAL [...] recommended. | | | | | | Testing performed at | | | | | | [facility];[address] | | | | | | [address];[place] [address] | | | | + + + + + + + + | Specimen | + + | Blood specimen | | (specimen) | + + + +---------+ + + | Performing | Address | City/State/Zipcode | Phone Number | | Organization | | | | + +---------+ + + | EXTERNAL LAB | | | | + +---------+ + + US Pelvis W Transvaginal (02/01/2019 10:55 AM PDT) + + | Specimen | + + | | + + + + + | Impressions | Performed At | + + + | 1. Moderate free fluid in the pelvis likely related to known | | | peritoneal dialysis catheter. Correlate clinically. 2. Hyperechoic | | | enlarged right ovary with hyperemia and complex cystic structures. | | | This is abnormal, and similar in size compared with 12/24/2018. | | | This raises concern for ovarian mass. Enhanced MRI may help in | | | further evaluation. 3. Complex cyst in the left ovary. Signed by: | | | Cedric Smalls Sign Date/Time: 02/01/2019 11:09 AM | | + + + + + + | Narrative | Performed At | + + + | ULTRASOUND PELVIS, TRANSABDOMINAL AND TRANSVAGINAL CLINICAL | | | INFORMATION: Right ovarian mass. UNK LMP. COMPARISON: CT ABDOMEN | | | AND PELVIS WITHOUT AND WITH CONTRAST AND ANGIOGRAPHY (01/04/2019); | | | ULTRASOUND PELVIS (12/24/2018); ULTRASOUND, TRANSVAGINAL ONLY | | | (12/24/2018); PROCEDURE: Transabdominal and transvaginal ultrasound | | | evaluation of the uterus, endometrium, adnexa and ovaries. FINDINGS: | | | Transabdominal: Limited evaluation due to patient body habitus. | | | Uterus: 7.4 x 3.3 x 4.1 cm. Uterus grossly unremarkable. Endometrium | | | difficult to define. Moderate free fluid adjacent to the uterus. | | | Transvaginal: Uterus normal. Endometrium is homogeneous. Endometrium: | | | 7.2 mm. Nabothian cysts measure up to 1.3 cm in the cervix. Right | | | ovary: 5.4 x 3.9 x 4.2 cm. Hyperechoic appearance of the right | | | ovary with multiple complex septated cystic structures in the right | | | ovary measuring up to 2.8 cm. Color flow and spectral Doppler | | | evaluation shows arterial and venous flow throughout the right ovary | | | with hyperemia. Left ovary: 3.7 x 2.7 x 2.4 cm. Thinly septated cyst | | | measures 2.7 x 2.1 x 2.7 cm. Color flow and spectral Doppler | | | evaluation unremarkable. Moderate anechoic fluid. The peritoneal | | | dialysis catheter in the anterior pelvis noted on CT is not defined | | | by ultrasound. | | + + + + + | Procedure Note | + + | Endy, Rad Conversion - 06/22/2019 11:30 PM PDT ULTRASOUND PELVIS, TRANSABDOMINAL AND | | TRANSVAGINALCLINICAL INFORMATION:Right ovarian mass. UNK LMP.COMPARISON:CT ABDOMEN AND | | PELVIS WITHOUT AND WITH CONTRAST AND ANGIOGRAPHY(01/04/2019); ULTRASOUND PELVIS | | (12/24/2018); ULTRASOUND, TRANSVAGINALONLY (12/24/2018);PROCEDURE:Transabdominal and | | transvaginal ultrasound evaluation of the uterus,endometrium, adnexa and | | ovaries.FINDINGS:Transabdominal:Limited evaluation due to patient body habitus.Uterus: | | 7.4 x 3.3 x 4.1 cm. Uterus grossly unremarkable. Endometriumdifficult to define. | | Moderate free fluid adjacent to the uterus.Transvaginal:Uterus normal. Endometrium is | | homogeneous. Endometrium: 7.2 mm.Nabothian cysts measure up to 1.3 cm in the | | cervix.Right ovary: 5.4 x 3.9 x 4.2 cm. Hyperechoic appearance of the rightovary with | | multiple complex septated cystic structures in the rightovary measuring up to 2.8 cm. | | Color flow and spectral Dopplerevaluation shows arterial and venous flow throughout the | | right ovarywith hyperemia.Left ovary: 3.7 x 2.7 x 2.4 cm. Thinly septated cyst measures | | 2.7 x 2.1x 2.7 cm. Color flow and spectral Doppler evaluation unremarkable.Moderate | | anechoic fluid. The peritoneal dialysis catheter in theanterior pelvis noted on CT is | | not defined by ultrasound.IMPRESSION: 1. Moderate free fluid in the pelvis likely | | related to known peritonealdialysis catheter. Correlate clinically.2. Hyperechoic | | enlarged right ovary with hyperemia and complex cysticstructures. This is abnormal, and | | similar in size compared with12/24/2018. This raises concern for ovarian mass. | | Enhanced MRI mayhelp in further evaluation.3. Complex cyst in the left ovary.Signed by: | | Jr Smalls Date/Time: 02/01/2019 11:09 AM | |evaluation shows arterial and venous flow throughout the right ovary | |with hyperemia. | |Left ovary: 3.7 x 2.7 x 2.4 cm. Thinly septated cyst measures 2.7 x 2.1 | |x 2.7 cm. Color flow and spectral Doppler evaluation unremarkable. | |Moderate anechoic fluid. The peritoneal dialysis catheter in the | |anterior pelvis noted on CT is not defined by ultrasound. | |IMPRESSION: | |1. Moderate free fluid in the pelvis likely related to known peritoneal | |dialysis catheter. Correlate clinically. | |2. Hyperechoic enlarged right ovary with hyperemia and complex cystic | |structures. This is abnormal, and similar in size compared with | |12/24/2018. This raises concern for ovarian mass. Enhanced MRI may | |help in further evaluation. | |3. Complex cyst in the left ovary. | |Signed by: Cedric Smalls | |Sign Date/Time: 02/01/2019 11:09 AM | + + Cell Count, Body Fluid (02/01/2019 7:53 AM PDT) + + | Specimen | + + | | + + + + + | Narrative | Performed At | + + + | FLUID TYPE PERITONEAL FLUID | EXTERNAL LAB | | COLOR YELLOW | | | APPEARANCE HAZY RBC'S | | | <91304 TOTAL | | | NUCLEATED CELLS 622 NEUTROPHILS | | | 48 LYMPHOCYTES | | | 5 MONOCYTES/MACROPHAGES | | | 46 Mesothelial Cells | | | 1 CELLS COUNTED 100 | | | Testing performed at [facility];[address] [place] [address];[place] [address] | | + + + + +---------+ + + | Performing | Address | City/State/Zipcode | Phone Number | | Organization | | | | + +---------+ + + | EXTERNAL LAB | | | | + +---------+ + + Culture, Body Fluid, Sterile, Smear, with Anaerobes (02/01/2019 7:51 AM PDT) + + | Specimen | + + | Body fluid sample | | (specimen) | + + + + + | Narrative | Performed At | + + + | Specimen Description PERITONEAL FLUID SPECIAL | EXTERNAL LAB | | REQUESTS HOLD 10 DAYS GRAM STAIN | | | 1+ | | | WBC'S SEEN | | | NO ORGANISMS SEEN CULTURE | | | NO GROWTH 10 DAYS | | + + + + +---------+ + + | Performing | Address | City/State/Zipcode | Phone Number | | Organization | | | | + +---------+ + + | EXTERNAL LAB | | | | + +---------+ + + Lactic Acid (02/01/2019 7:18 AM PDT) + + + + + + | Component | Value | Ref Range | Performed | Pathologist | | | | | At | Signature | + + + + + + | Lactate | 0.5Comment: Testing | 0.4 - 2.0 | EXTERNAL | | | | performed at [facility];[address] | mmol/L | LAB | | | | [address];[place], [place] | | | | | | [address] | | | | + + + + + + + + | Specimen | + + | | + + + +---------+ + + | Performing | Address | City/State/Zipcode | Phone Number | | Organization | | | | + +---------+ + + | EXTERNAL LAB | | | | + +---------+ + + Troponin I (02/01/2019 7:18 AM PDT) + + + + + + | Component | Value | Ref Range | Performed | Pathologist | | | | | At | Signature | + + + + + + | Troponin I, | <0.006Comment: 0.04 | 0.00 - 0.04 | EXTERNAL [...] recommended. | | | | | | Testing performed at | | | | | | [facility];[address] [place] [address] | | | | | | [facility];[place] [address] | | | | + + + [...] + +---------+ + + ECG 12 lead (02/01/2019 5:52 AM PDT) + + + + + + | Component | Value | Ref Range | Performed | Pathologist | | | | | At | Signature | + + + + + + | DIAGNOSIS: | Sinus rhythm with | | EXTERNAL | | | | occasional Premature | | LAB | | | | ventricular complexesLow | | | | | | voltage QRSNonspecific | | | | | | T wave | | | | | | abnormalityProlonged | | | | | | QTAbnormal ECGWhen | | | | | | compared with ECG of | | | | | | 05-JAN-2019 | | | | | | 00:55,Premature | | | | | | ventricular complexes | | | | | | are now | | | | | | PresentNonspecific T | | | | | | wave abnormality has | | | | | | replaced inverted T | | | | | | waves in Inferior leadsT | | | | | | wave inversion less | | | | | | evident in Anterolateral | | | | | | leadsQT has | | | | | | lengthenedConfirmed by | | | | | | ABDI CAMARENA ([id number]) on | | | | | | 02/01/2019 12:49:07 PM | | | | + + + + + + + + | Specimen | + + | | + + + + + | Narrative | Performed At | + + + | Historically converted procedure from [email or web address] Epic environment | EXTERNAL LAB | + + + + +---------+ + + | Performing | Address | City/State/Zipcode | Phone Number | | Organization | | | | + +---------+ + + | EXTERNAL LAB | | | | + +---------+ + + Lactic Acid (02/01/2019 4:38 AM PDT) + + + + + + | Component | Value | Ref Range | Performed | Pathologist | | | | | At | Signature | + + + + + + | Lactate | 1.1Comment: Testing | 0.4 - 2.0 | EXTERNAL | | | | performed at [facility];[address] | mmol/L | LAB | | | | [address];[place], [place] | | | | | | [address] | | | | + + + + + + + + | Specimen | + + | | + + + +---------+ + + | Performing | Address | City/State/Zipcode | Phone Number | | Organization | | | | + +---------+ + + | EXTERNAL LAB | | | | + +---------+ + + MRSA NAAT (02/01/2019 3:28 AM PDT) + + | Specimen | + + | | + + + + + | Narrative | Performed At | + + + | SOURCE NARES(NOSE) MRSA | EXTERNAL LAB | | PCR NEGATIVE Testing | | | performed at [facility];[address] [place] [address];[place] [address] | | + + + + +---------+ + + | Performing | Address | City/State/Zipcode | Phone Number | | Organization | | | | + +---------+ + + | EXTERNAL LAB | | | | + +---------+ + + Procalcitonin (02/01/2019 3:18 AM PDT) + + + + + + | Component | Value | Ref Range | Performed | Pathologist | | | | | At | Signature | + + + + + + | PROCALCITON | 0.50 (H)Comment: | ng/mL | EXTERNAL | | [...] | | | | | | at [facility];[address] [place] [address] | | | | | | [facility];[place] [address] | | | | + + + + + + + + | Specimen | + + | | + + + +---------+ + + | Performing | Address | City/State/Zipcode | Phone Number | | Organization | | | | + +---------+ + + | EXTERNAL LAB | | | | + +---------+ + + External Lab: CBC (02/01/2019 3:18 AM PDT) + + + + + + | Component | Value | Ref Range | Performed | Pathologist | | | | | At | Signature | + + + + + + | WBC | 21.67 (H) | 3.80 - 11.00 | EXTERNAL | | | | | K/uL | LAB | | + + + + + + | Red Blood | 3.22 (L) | 3.70 - 5.10 | EXTERNAL | | | Cells | | M/uL | LAB | | | Counted | | | | | + + + + + + | Hemoglobin | 9.8 (L) | 11.3 - 15.5 | EXTERNAL | | | | | g/dL | LAB | | + + + + + + | Hematocrit, | 29.9 (L) | 34.0 - 46.0 % | EXTERNAL | | | POC | | | LAB | | + + + + + + | MCV | 92.8 | 80.0 - 100.0 fl | EXTERNAL | | | | | | LAB | | + + + + + + | MCH | 30.5 | 27.0 - 34.0 pg | EXTERNAL [...] + + + + | Platelet | 355 | 150 - 400 K/uL | EXTERNAL | | | Count | | | LAB | | | Plasma | | | | | + + + + + + | MPV | 8.2 | fl | EXTERNAL | | | | | | LAB | | + + + + + + | Differentia | MANUAL | | EXTERNAL | | | l Type | | | LAB | | + + + + + + | Segmented | 90 | % | EXTERNAL | | | Neutrophils | | | LAB | | | Manual | | | | | + + + + + + | % Bands | 2 | % | EXTERNAL | | | | | | LAB | | + + + + + + | Lymphocytes | 6 | % | EXTERNAL | | | Manual | | | LAB | | + + + + + + | Monocytes | 2 | % | EXTERNAL | | | Manual | | | LAB | | + + + + + + | Absolute | 19.51 (H) | 1.90 - 7.40 | EXTERNAL | | | Neutrophils | | K/uL | LAB | | + + + + + + | Bands | 0.43 (H) | 0.00 - 0.20 | EXTERNAL | | | Manual | | K/uL | LAB | | + + + + + + | Absolute | 1.30 | 1.00 - 3.90 | EXTERNAL | | | Lymphocytes | | K/uL | LAB | | + + + + + + | Absolute | 0.43 | 0.00 - 0.80 | EXTERNAL | [...] at | | | | | | [facility];[address] | | | | | | [address];[place] [address] | | | | + + + + + + + + | Specimen | + + | Blood specimen | | (specimen) | + + + +---------+ + + | Performing | Address | City/State/Zipcode | Phone Number | | Organization | | | | + +---------+ + + | EXTERNAL LAB | | | | + +---------+ + + Phosphorus (02/01/2019 3:18 AM PDT) + + + + + + | Component | Value | Ref Range | Performed | Pathologist | | | | | At | Signature | + + + + + + | PHOSPHORUS | 5.4 (H)Comment: Testing | 2.3 - 4.8 mg/dL | EXTERNAL | | | | performed at [facility] | | LAB | | | | [address];[place] | | | | | | [address] | | | | + + + + + + + + | Specimen | + + | | + + + +---------+ + + | Performing | Address | City/State/Zipcode | Phone Number | | Organization | | | | + +---------+ + + | EXTERNAL LAB | | | | + +---------+ + + Magnesium (02/01/2019 3:18 AM PDT) + + + + + + | Component | Value | Ref Range | Performed | Pathologist | | | | | At | Signature | + + + + + + | Magnesium | 3.0 (H)Comment: Testing | 1.7 - 2.4 mg/dL | EXTERNAL | | | | performed at [facility];[address] | | LAB | | | | [address];[place] | | | | | | [address] | | | | + + + + + + + + | Specimen | + + | | + + + +---------+ + + | Performing | Address | City/State/Zipcode | Phone Number | | Organization | | | | + +---------+ + + | EXTERNAL LAB | | | | + +---------+ + + Comprehensive Metabolic Panel (02/01/2019 3:18 AM PDT) + + + + + + | Component | Value | Ref Range | Performed | Pathologist | | | | | At | Signature | + + + + + + | Na | 141 | 135 - 145 | EXTERNAL | | | | | mmol/L | LAB | | + + + + + + | K | 3.6 | 3.5 - 4.9 | EXTERNAL | | | | | mmol/L | LAB | | + + + + + + | Cl | 103 | 99 - 109 mmol/L | EXTERNAL | | | | | | LAB | | + + + + + + | CO2 | 27 | 23 - 32 mmol/L | EXTERNAL | | | | | | LAB | | + + + + + + | Anion Gap | 15 | 5 - 20 mmol/L | EXTERNAL | | | | | | LAB | | + + + + + + | Glucose, | 94 | 65 - 99 mg/dL | EXTERNAL | | | Fasting | | | LAB | | + + + + + + | BUN | 25 | 8 - 25 mg/dL | EXTERNAL | | | | | | LAB | | + + + + + + | Creatinine | 11.53 (H) | 0.50 - 1.00 | EXTERNAL | | | | | mg/dL | LAB | | + + + + + + | BUN/Creatin | 2 | | EXTERNAL | | | ine Ratio | | | LAB | | + + + + + + | Calcium | 7.5 (L) | 8.5 - 10.5 | EXTERNAL | | | | | mg/dL | LAB | | + + + + + + | Protein, | 5.7 (L) | 6.3 - 8.2 g/dL | EXTERNAL | | | Total | | | LAB | | + + + + + + | Albumin | 3.4 (L) | 3.6 - 5.0 g/dL | EXTERNAL | | | | | | LAB | | + + + + + + | Globulin | 2.3 | 1.3 - 4.9 g/dL | EXTERNAL | | | | | | LAB | | + + + + + + | A/G Ratio | 1.5 | 1.0 - 2.4 | EXTERNAL | | | | | | LAB | | + + + + + + | Bilirubin | <0.2 | 0.1 - 1.5 mg/dL | EXTERNAL | | | Total | | | LAB | | + + + + + + | ALP, | 81 | 35 - 115 U/L | EXTERNAL | | | External | | | LAB | | + + + + + + | AST | 11 | 10 - 45 U/L | EXTERNAL | | | | | | LAB | | + + + + + + | ALT | <7 (L) | 10 - 65 U/L | EXTERNAL [...] | | | | | performed at [facility];[address] | | | | | | [facility];[place], [place] | | | | | | [address] | | | | + + + [...] +---------+ + + Culture, Blood, 2nd Specimen (02/01/2019 3:17 AM PDT) + + | Specimen | [...] | + +---------+ + + Culture, Blood (02/01/2019 3:17 AM PDT) + + | Specimen | [...] | | + +---------+ + + POC Glucose (02/01/2019 3:13 AM PDT) + + + + + + | Component | Value | Ref Range | Performed | Pathologist | | | | | At | Signature | + + + + + + | Glucose, | 97Comment: Testing | 65 - 99 mg/dL | EXTERNAL | | | Fingerstick | performed at [facility] [place];[address] | | LAB | | | | Maksim Agarwal;[place] | | | | | | [id number] | | | | + + + [...] | Anemia in ESRD (end-stage renal disease) ([facility]) Anemia in chronic kidney disease | + + | Electrolyte imbalance risk Other specified conditions influencing health status | + + | Hypoalbuminemia Other disorders of plasma protein metabolism | + + | SIRS (systemic inflammatory response syndrome) ([facility]) Systemic inflammatory response | | syndrome, unspecified | + + | Infection associated with peritoneal dialysis catheter, initial encounter (HCC) | + + | Ovarian mass, right | + + documented in this encounter
--- OUTSIDE RECORDS SUMMARY | ~2020-04-05 | XMS | Encounter Summary ---
Demographics + + + | Address | [address] | | | [place] [address] | + + + | Home Phone | | + + + | Preferred Language | Unknown | + + + | Marital Status | | + + + | Quaker Affiliation | Unknown | + + + | Race | Unknown | + + + | Ethnic Group | Unknown | + + + Author + + + | Author | [facility] | | | and [place] | + + + | Organization | [facility] | | | and [place] | + + + | Address | Unknown | + + + | Phone | Unavailable | + + + Support + + + + + | Name | Relationship | Address | Phone | + + + + + | Lyubov Smalls | ECON | [place], [place] | | | | | [address] | | + + + + + | Lydia Palm | ECON | [place], [place] | | | | | [address] | | + + + + + | melinda METZ" | ECON | [place], [place] | | | [place] | | [address] | | + + + + + | Jose C Oconnor | ECON | [place] | | | | | [place] | | | | | [address] | | + + + + + Care Team Providers + +------+ + | Care Magnetic Observer Name | Role | Phone | + [...] | +--------+ + + + + | 08/27/ | Telephone | [facility] | Elizabeth Soriano | Other | | 2017 | | [facility] | MD Kiran [address] | | | | | KIDNEY TRANSPLANT | [place] [address] | | | | | [address] [place] | [place] [address] | | | | | [address] | [phone] | | | | | [address] | | | | | | [phone] | | | +--------+ + + + [...]
--- OUTSIDE RECORDS SUMMARY | ~2020-04-05 | XMS | Encounter Summary ---
Demographics + + + | Address | [address] | | | [place] [address] | + + + | Home Phone [...] [place], [place] | | | | | [address] | | + + + + + | Lydia Palm | ECON | [place], [place] | | | | | [address] | | + + + + + | melinda METZ" | ECON | [place], [place] | | | [place] | | [address] | | + + + + + | oJse C Oconnor | ECON | [address] [place] | | | | | [place] | | | | | [address] | | + + + + + Care Team Providers + +------+ + | Care Card Maker Name | Role | Phone | [...] | +--------+ + + + + | 08/30/ | Telephone | [facility] | Samira Dixon, | Follow-up | | 2018 | | VASCULAR SURGERY | RN | | | | | [address] | | | | | | [place] | | | | | | [address] | | | | | | [phone] | | | +--------+ + + + [...]
--- OUTSIDE RECORDS SUMMARY | ~2020-04-05 | XMS | Encounter Summary ---
Demographics + + + | Address | [address] | | | [place] [address] | + + + | Home Phone [...] [place], [place] | | | | | [address] | | + + + + + | Lydia Palm | ECON | [place], [place] | | | | | [address] | | + + + + + | melinda METZ" | ECON | [place], [place] | | | [place] | | [address] | | + + + + + | Jose C Oconnor | ECON | [address] | | | | | [place] | | | | | [address] | | + + + + + Care Team Providers + +------+ + | Care Blind Slat Stapling Machine Operator Name | Role | Phone [...] 2018 | | [address] | [address] | | | | | [place] | [address], | | | | | [address] | [place] [address] | | | | | [phone] | [phone] | | | | | | | [...]
--- OUTSIDE RECORDS SUMMARY | ~2020-04-05 | XMS | Encounter Summary ---
Demographics + + + | Address | [address] | | | [place] [address] | + + + | Home Phone | | + + + | Preferred Language | Unknown | + + + | Marital Status | | + + + | Uatsdin Affiliation | Unknown | + + + | Race | Unknown | + + + | Ethnic Group | Unknown | + + + Author + + + | Author | Located Within [facility] | | | and [place] | + + + | Organization | Located Within [facility] | | | and [place] | + + + | Address | Unknown | + + + | Phone | Unavailable | + + + Support + + + + + | Name | Relationship | Address | Phone | + + + + + | Lyubov Smalls | ECON | [place], [place] | | | | | [address] | | + + + + + | Lydia Palm | ECON | [place], [place] | | | | | [address] | | + + + + + | melinda METZ" | ECON | [place], [place] | | | [place]ba | | [address] | | + + + + + | Jose C Oconnor | ECON | [place] | | | | | [place] | | | | | [address] | | + + + + + Care Team Providers + +------+ + | Care Supervisor Tank Cleaning Name | Role | Phone | + +------+ + | Juan F Whitley DO | PCP | | + +------+ + Encounter Details +--------+ + + + + | Date | Type | Department | Care Team | Description | +--------+ + + + + | 04/02/ | Hospital | [facility] | Elis JayDO | Nausea vomiting and | | 2019 - | Encounter | [facility] | [address] | diarrhea; ESRD on | | | | CARE FLO[address] | [place] [address] | hemodialysis (HCC); | | 04/04/ | | [address] | [phone] | Hyperkalemia; | | 2018 | | [place], [place] | | Leukocytosis, | | | | [address] | | unspecified type | | | | [phone] | | | +--------+ + + + [...] + + + | Blood Pressure | 104/55 | 04/04/2019 7:32 AM | | | | | PDT | | + + + + + | Pulse | 64 | 04/04/2019 7:32 AM | | | | | PDT | | + + + + + | Temperature | 37.2 C (98.9 F) | 04/04/2019 7:32 AM | | | | | PDT | | + + + + + | Respiratory Rate | 20 | 04/04/2019 7:32 AM | | | | | PDT | | + + + + + | Oxygen Saturation | - | - | | + + + + + | Inhaled Oxygen | - | - | | | Concentration | | | | + + + + + | Weight | 81.1 kg (178 lb 14.4 | 04/04/2019 7:32 AM | | | | oz) | PDT | | + + + + + | Height | 157.5 cm (5' 2") | 04/04/2019 7:32 AM | | | | | PDT | | + + + + + | Body Mass Index | 32.72 | 04/04/2019 7:32 AM | | | | | PDT | | + + + + + documented in this encounter Discharge Summaries Roque Wyatt DO - 04/04/2019 8:40 AM PDT Discharge Summaries by Roque Wyatt DO at 04/04/1942 Author: Roque Wyatt DO Service: Hospitalist Author Type: Physician Filed: 04/04/19 0844 Date of Service: 04/04/19839 Status: Signed Surgical Aide: Roque Wyatt DO (Physician) [facility] Service: Hospitalist Discharge Summary Date of Admission: 04/02/2019 Date of Discharge: 04/04/2019 Discharge Provider: Roque Wyatt DO Attending Provider: Roque Wyatt DO Treatment Team: Consulting Physician: Kashif Reyna MD Admitting Provider: Jay Gillis DO Discharge Diagnoses: Principal Problem (Resolved): Intractable nausea and vomiting Active Problems: Ovarian mass, right Anemia in ESRD (end-stage renal disease) (HCC) Hyperphosphatemia End-stage renal disease (HCC) Resolved Problems: Abdominal pain Leukocytosis Admitted for intractable nausea and vomiting in the setting of ESRD and recent change from PD to HD due to development of peritonitis. CT abd/pelv (included below) was reassuring as t o etiology of nausea/vomiting. She had significant electrolyte abnormalities likely as a res ult of missing HD and her diet/med tolerance being much altered from n/v. She was managed co nservatively in the hospital, HD given, PRN antiemetics, and her symptoms resolved quickly. She was able to tolerate PO. Electrolytes improved after HD. She is presumptively diagnosed with viral gastroenteritis (with hx of others in the family having same symptoms). As an asi de, CT abd/pelv noted adrenal and ovarian masses, with some concern for ovarian masses incre asing in size. These will continue to be monitored (as they already are being) in the outpat ient setting. CT Abdomen & Pelvis with contrast Impression 1. Left adrenal mass is unchanged compared to studies back to 09/07/2017 2. Bilateral small kidneys consistent with a history of renal failure 3. Sigmoid diverticulosis but no evidence of diverticulitis. 4. Segregation of loops of small bowel in the right abdomen with a suggestion of a thin surrounding membrane likely secondary to the chronic inflammation of peritoneal dialysis. This may predispose to bowel obstruction. But no evidence of obstruction at this point in time. 5. The left and right ovary appear to be slightly increased in size. While the right ovarian complex cystic masses being surveilled with ultrasound further evaluation with CA 125 levels if not previously performed should be considered. DISCHARGE EXAM Vital Signs: BP 104/55 (BP Location: Right upper arm) | Pulse 64 | Temp 98.9 F (37.2 C) (Oral) | Resp 20 | Ht 1.575 m (5' 2") | Wt 81.1 kg (178 lb 14.4 oz) | LMP 03/12/2019 | SpO2 93% | ? No | BMI 32.72 kg/m Physical Exam NAD AOx3 HENT - MMM, conjunctivae normal Heart - RRR no murmur, no JVD, normal radial / DP pulses B/L Lungs - CTAB/L no WRR, good effort Abd - S mild +TTP diffusely without rebound/guard ND +BSx4 Ext - Good ROM no tenderness or edema Skin - dry no erythema Disposition: Home Condition: Stable Code Status: Full Code Follow [place]: [place] [address] [place] [address] Medication List CONTINUE taking these medications LORazepam 1 MG [...] them or your Primary Care Pro vider. Discharge took ~35 minutes, to include final examination, discussion of admission, and prep aration of prescriptions, instructions for on-going care, follow-up and documentation of dis charge summary. oRque Wyatt DO 04/04/2019 8:41 AM documented in this enc ounter Medications [...] Progress Notes Conversion Transaction, Provider Unknown - 04/04/2019 9:47 AM PDTFormatting of this note m ight be different from the original. Nurse Progress Note by Francie Andrews RN at 04/04/19946 Author: Francie Andrews RN Service: (none) Author Type: Registered Nurse Filed: 04/04/19946 Date of Service: 04/04/19946 Status: Signed Surgical Aide: Francie Andrews RN (Registered Nurse) Discharge instructions provided to patient. All questions addressed and answered at this ti me. Peripheral IV removed. Patient wheeled out to front entrance to discharge by private veh icle. Francie Andrews RN onver patric Transaction, Provider Unknown - 04/04/2019 7:54 AM PDT Nurse Progress Note by Deanne Jaimes RN at 04/04/19753 Author: Deanne Jaimes RN Service: (none) Author Type: Registered Nurse Filed: 04/04/198 Date of Service: 04/04/19753 Status: Signed Surgical Aide: Deanne Jaimes RN (Registered Nurse) Ramona is A&O x4, afebrile, and VSS. Pt c/o nausea x1, zofran given, pt reported relief. Pt was medicated x3 for pain 7/10 in the abdomen. No other acute changes since shift assessment. End of shift audit complete.Deanne rodgers RN. Roque Pastrana DO - 04/03/2019 1:16 PM PDTFormatting of this note might be different from the ave ginal. Progress Notes by Roque Wyatt DO at 04/03/19 969 Author: Roque Wyatt DO Service: Hospitalist Author Type: Physician Filed: 04/03/198 Date of Service: 04/03/196 Status: Signed Surgical Aide: Roque Wyatt DO (Physician) PROGRESS NOTE 04/03/2019 for Ramona Oconnor on the hospitalist service. ASSESSMENT & PLAN Viral gastroenteritis Improving, patient will venture to eat today, monitor PO tolerance, monitor lytes and fluid balance. Peritonitis from PD Now on HD, improving, nephro recs. ESRD Now getting HD from R chest HD cath, nephrology following. Hyperkalemia, hypermagnesemia, hyperphos From ESRD, got HD today, monitor lytes. Problem list: Principal Problem: Intractable nausea and vomiting Active Problems: Ovarian mass, right Leukocytosis End-stage renal disease (HCC) Length of stay: 1 days DVT prophylaxis: HSQ Code status: full code Disposition: inpatient SUBJECTIVE Patient seen/examined sitting in bed, mom present, about to have some lunch, feeling better , no complaints. OBJECTIVE Temp: [97.6 F (36.4 C)-98.7 F (37.1 C)] 97.6 F (36.4 C) (04/03 1240) BP: (105-165)/(56-99) 139/77 (04/03 1240) Heart Rate: [53-80] 58 (04/03 1240) Resp: [16] 16 (04/03 1240) SpO2: [94 %-100 %] 98 % (04/03 1240) Height: [157.5 cm (5' 2")] 157.5 cm (5' 2") (04/02 2153) Weight: [81.1 kg (178 lb 14.4 oz)] 81.1 kg (178 lb 14.4 oz) (04/02 2153) BMI (Calculated): [32.8] 32.8 (04/02 2153) Physical exam: NAD AOx3 HENT - MMM, conjunctivae normal Heart - RRR no murmur, no JVD, normal radial / DP pulses B/L Lungs - CTAB/L no WRR, good effort Abd - S mild +TTP diffusely without rebound/guard ND +BSx4 Ext - Good ROM no tenderness or edema Skin - dry no erythema CBC: Lab Results Component Value Date WBC 6.84 04/03/2019 RBC 4.21 04/03/2019 HGB 11.7 04/03/2019 HCT 36.8 04/03/2019 MCV 87.5 04/03/2019 MCH 27.9 04/03/2019 MCHC 31.9 (L) 04/03/2019 RDW 47.7 04/03/2019 PLT 286 04/03/2019 MPV 8.4 04/03/2019 DIFFTYPE AUTOMATED 04/03/2019 BMP: Lab Results Component Value Date NA 136 04/03/2019 K 6.0 (H) 04/03/2019 CL 101 04/03/2019 CO2 23 04/03/2019 ANIONGAP 18 04/03/2019 GLUF 78 04/03/2019 BUN 50 (H) 04/03/2019 CREATININE 11.0 (H) 04/03/2019 BCR 5 04/03/2019 CA 8.5 04/03/2019 CA 9.0 09/07/2017 EGFR 4 (L) 04/03/2019 Magnesium: Lab Results Component Value Date MG 3.7 (H) 04/03/2019 Phosphorus: Lab Results Component Value Date PHOS 5.1 (H) 04/03/2019 MEDICATIONS heparin (porcine) 5000 unit/0.5mL 5,000 Units Subcutaneous 2 times per day pantoprazole 40 mg Oral QAM AC sevelamer 1,600 mg Oral BID AC sevelamer 2,400 mg Oral Daily with dinner sodium chloride 10 mL Intravenous Q8H traZODone 100 mg Oral Nightly PRN: acetaminophen OR acetaminophen, albumin human, HYDROmorphone OR HYDROmorphone, onda nsetron OR ondansetron, oxyCODONE-acetaminophen, polyethylene glycol, promethazine, sodi um chloride (bolus), zolpidem I spent over 35 minutes in reviewing patient s data, examination of patient and discussin g care of patient with patient and family. At least, 50% of time was face to face counseling or coordinating of care. Signature: Roque Wyatt DO 04/03/2019 1:16 PM onversion Transaction , Provider Unknown - 04/03/2019 6:08 AM PDT Nurse Progress Note by Salome Garcia RN at 04/03/19607 Author: Salome Garcia RN Service: (none) Author Type: Registered Nurse Filed: 04/03/1914 Date of Service: 04/03/19607 Status: Signed Surgical Aide: Salome Garcia RN (Registered Nurse) Pt admitted from ED this shift. No further episodes of vomiting or diarrhea since transfer ring to the floor; one dose of Zofran and one dose of phenergan administered for nausea. Ge ntle hydration completed overnight, as per orders; pt denied associated difficulty breathing . VSS, with exception for persistently elevated pain ratings; medicated accordingly. IV in filtrated this morning, R hand subsequently elevated. No further concerns identified. Will continue to monitor. End of shift audit complete. 04/03/19 6:14 AM Salome Garcia RN onver patric Transaction, Provider Unknown - 04/02/2019 10:12 PM PDT Progress Notes by Minerva Cruz RPH at 04/02/192211 Author: Minerva Cruz RPH Service: Pharmacy Author Type: Pharmacist Filed: 04/02/192211 Date of Service: 04/02/192211 Status: Signed Surgical Aide: Minerva Cruz RPH (Pharmacist) Clinical Pharmacy Note: Renal Monitoring Serum creatinine: 9.19 mg/dL (H) 04/02/19 1244 Estimated creatinine clearance: 7.9 mL/min (A) Pharmacy dosing for renal function per Dr. Gillis Currently there are no medications needing to be adjusted. Pharmacy will continue to monito r for changes in medication orders and in renal function and adjust accordingly. Minerva Cruz Pharmacist 04/02/2019 10:11 PM docume nted in this encounter Plan of Treatment Not on filedocumented as of this encounter Procedures + +--------+ + + + | Procedure Name | Priori | Date/Time | Associated Diagnosis | Comments | | | ty | | | | + +--------+ + + + | EXTERNAL LAB: CBC | Routin | 04/04/2019 | | Results for this | | | e | 4:57 AM | | procedure are in the | | | | PDT | | results section. | + +--------+ + + + | PHOSPHORUS | Routin | 04/04/2019 | | Results for this | | | e | 4:57 AM | | procedure are in the | | | | PDT | | results section. | + +--------+ + + + | MAGNESIUM | Routin | 04/04/2019 | | Results for this | | | e | 4:57 AM | | procedure are in the | | | | PDT | | results section. | + +--------+ + + + | BASIC METABOLIC | Routin | 04/04/2019 | | Results for this | | PANEL | e | 4:57 AM | | procedure are in the | | | | PDT | | results section. | + +--------+ + + + | HEPATITIS B SURFACE | Routin | 04/03/2019 | | Results for this | | AG | e | 9:06 AM | | procedure are in the | | | | PDT | | results section. | + +--------+ + + + | EXTERNAL LAB: CBC | Routin | 04/03/2019 | | Results for this | | | e | 7:40 AM | | procedure are in the | | | | PDT | | results section. | + +--------+ + + + | PHOSPHORUS | Routin | 04/03/2019 | | Results for this | | | e | 5:17 AM | | procedure are in the | | | | PDT | | results section. | + +--------+ + + + | MAGNESIUM | Routin | 04/03/2019 | | Results for this | | | e | 5:17 AM | | procedure are in the | | | | PDT | | results section. | + +--------+ + + + | BASIC METABOLIC | Routin | 04/03/2019 | | Results for this | | PANEL | e | 5:17 AM | | procedure are in the | | | | PDT | | results section. | + +--------+ + + + | CT ABDOMEN PELVIS W | Routin | 04/02/2019 | | Results for this | | CONTRAST | e | 5:40 PM | | procedure are in the | | | | PDT | | results section. | + +--------+ + + + | HCG, SERUM, QUANT | Routin | 04/02/2019 | | Results for this | | | e | 3:36 PM | | procedure are in the | | | | PDT | | results section. | + +--------+ + + + | ECG 12 LEAD | Routin | 04/02/2019 | | Results for this | | | e | 3:30 PM | | procedure are in the | | | | PDT | | results section. | + +--------+ + + + | EXTERNAL LAB: CBC | Routin | 04/02/2019 | | Results for this | | | e | 12:44 PM | | procedure are in the | | | | PDT | | results section. | + +--------+ + + + | LACTIC ACID | Routin | 04/02/2019 | | Results for this | | | e | 12:44 PM | | procedure are in the | | | | PDT | | results section. | + +--------+ + + + | COMPREHENSIVE | Routin | 04/02/2019 | | Results for this | | METABOLIC PANEL | e | 12:44 PM | | procedure are in the | | | | PDT | | results section. | + +--------+ + + + documented in this encounter Results External Lab: CBC (04/04/2019 4:57 AM PDT) + + + + + + | Component | Value | Ref Range | Performed | Pathologist | | | | | At | Signature | + + + + + + | WBC | 8.54 | 3.80 - 11.00 | EXTERNAL | | | | | K/uL | LAB | | + + + + + + | Red Blood | 4.35 | 3.70 - 5.10 | EXTERNAL | | | Cells | | M/uL | LAB | | | Counted | | | | | + + + + + + | Hemoglobin | 12.2 | 11.3 - 15.5 | EXTERNAL | | | | | g/dL | LAB | | + + + + + + | Hematocrit, | 38.6 | 34.0 - 46.0 % | EXTERNAL | | | POC | | | LAB | | + + + + + + | MCV | 88.8 | 80.0 - 100.0 fl | EXTERNAL | | | | | | LAB | | + + + + + + | MCH | 28.1 | 27.0 - 34.0 pg | EXTERNAL [...] + + + | % Segmented | 65.72 | % | EXTERNAL | | | | | | LAB | | | Neutrophils | | | | | + + + + + + | % | 19.99 | % | EXTERNAL | | | Lymphocytes | | | LAB | | + + + + + + | % Monocytes | 10.42 | % | EXTERNAL | | | | | | LAB | | + + + + + + | % | 3.34 | % | EXTERNAL | | | Eosinophils | | | LAB | | + + + + + + | % Basophils | 0.53 | % | EXTERNAL | | | | | | LAB | | + + + + + + | Absolute | 5.61 | 1.90 - 7.40 | EXTERNAL | | | Segmented | | K/uL | LAB | | | Neutrophils | | | | | + + + + + + | Absolute | 1.71 | 1.00 - 3.90 | EXTERNAL | | | Lymphocytes | | K/uL | LAB | | + + + + + + | Absolute | 0.89 (H) | 0.00 - 0.80 | EXTERNAL [...] | | Basophils | performed at [facility], [address] | [address] | LAB | | | | [address], | | | | | | [place] [address] | | | | + + + + + + + + | Specimen | + + | Blood specimen | | (specimen) | + + + +---------+ + + | Performing | Address | City/State/Zipcode | Phone Number | | Organization | | | | + +---------+ + + | EXTERNAL LAB | | | | + +---------+ + + Phosphorus (04/04/2019 4:57 AM PDT) + + + + + + | Component | Value | Ref Range | Performed | Pathologist | | | | | At | Signature | + + + + + + | PHOSPHORUS | 6.0 (H)Comment: Testing | 2.3 - 4.8 mg/dL | EXTERNAL | | | | performed at [facility], [address] | | LAB | | | | [address], | | | | | | [place] [address] | | | | + + + + + + + + | Specimen | + + | Blood specimen | | (specimen) | + + + +---------+ + + | Performing | Address | City/State/Zipcode | Phone Number | | Organization | | | | + +---------+ + + | EXTERNAL LAB | | | | + +---------+ + + Magnesium (04/04/2019 4:57 AM PDT) + + + + + [...] | | | | | [place] [address] | | | | + + + [...] + +---------+ + + Basic Metabolic Panel (04/04/2019 4:57 AM PDT) + + + + + [...] + + + + | Glucose, | 82 | 65 - 99 mg/dL | EXTERNAL | | | Fasting | | | LAB | | + + + + + + | BUN | 27 (H) | 8 - 25 mg/dL | EXTERNAL | | | | | | LAB | | + + + + + + | Creatinine | 7.6 (H) | 0.50 - 1.00 | EXTERNAL [...] | | | | performed at [facility], [address] | | | | | | [facility], | | | | | | [place] [address] | | | | + + + + + + + + | Specimen | + + | Blood specimen | | (specimen) | + + + +---------+ + + | Performing | Address | City/State/Zipcode | Phone Number | | Organization | | | | + +---------+ + + | EXTERNAL LAB | | | | + +---------+ + + Hepatitis B Surface Ag (04/03/2019 9:06 AM PDT) + + + + + + | Component | Value | Ref Range | Performed | Pathologist | | | | | At | Signature | + + + + + + | HEP B | NON REACTIVEComment: | | EXTERNAL | | | SURFACE | Testing performed at | | LAB | | | ANTIBODY | [facility], [address] | | | | | | [place] | | | | | | [address] | | | | + + + [...] + +---------+ + + External Lab: CBC (04/03/2019 7:40 AM PDT) + + + + + + | Component | Value | Ref Range | Performed | Pathologist | | | | | At | Signature | + + + + + + | WBC | 6.84 | 3.80 - 11.00 | EXTERNAL | | | | | K/uL | LAB | | + + + + + + | Red Blood | 4.21 | 3.70 - 5.10 | EXTERNAL | | | Cells | | M/uL | LAB | | | Counted | | | | | + + + + + + | Hemoglobin | 11.7 | 11.3 - 15.5 | EXTERNAL | | | | | g/dL | LAB | | + + + + + + | Hematocrit, | 36.8 | 34.0 - 46.0 % | EXTERNAL | | | POC | | | LAB | | + + + + + + | MCV | 87.5 | 80.0 - 100.0 fl | EXTERNAL | | | | | | LAB | | + + + + + + | MCH | 27.9 | 27.0 - 34.0 pg | EXTERNAL [...] 286 | 150 - 400 K/uL | EXTERNAL [...] + + + | % Segmented | 71.37 | % | EXTERNAL | | | | | | LAB | | | Neutrophils | | | | | + + + + + + | % | 17.48 | % | EXTERNAL | | | Lymphocytes | | | LAB | | + + + + + + | % Monocytes | 7.65 | % | EXTERNAL | | | | | | LAB | | + + + + + + | % | 2.89 | % | EXTERNAL | | | Eosinophils | | | LAB | | + + + + + + | % Basophils | 0.61 | % | EXTERNAL | | | | | | LAB | | + + + + + + | Absolute | 4.88 | 1.90 - 7.40 | EXTERNAL | | | Segmented | | K/uL | LAB | | | Neutrophils | | | | | + + + + + + | Absolute | 1.20 | 1.00 - 3.90 | EXTERNAL | | | Lymphocytes | | K/uL | LAB | | + + + + + + | Absolute | 0.52 | 0.00 - 0.80 | EXTERNAL | | | Monocytes | | K/uL | LAB | | + + + + + + | Absolute | 0.20 | 0.00 - 0.50 | EXTERNAL | | | Eosinophils | | K/uL | LAB | | + + + + + + | Absolute | 0.04Comment: Testing | 0.00 - 0.10 | EXTERNAL | | | Basophils | performed at [facility] | [address] | LAB | | | | [address];[place] | | | | | | [address] | | | | + + + + + + + + | Specimen | + + | | + + + +---------+ + + | Performing | Address | City/State/Zipcode | Phone Number | | Organization | | | | + +---------+ + + | EXTERNAL LAB | | | | + +---------+ + + Phosphorus (04/03/2019 5:17 AM PDT) + + + + + + | Component | Value | Ref Range | Performed | Pathologist | | | | | At | Signature | + + + + + + | PHOSPHORUS | 5.1 (H)Comment: SPECIMEN | 2.3 - 4.8 mg/dL | EXTERNAL | | | | SLIGHTLY | | LAB | | | | HEMOLYZEDTesting | | | | | | performed at [facility], [address] | | | | | | [address], | | | | | | [place] [address] | | | | + + + + + + + + | Specimen | + + | Blood specimen | | (specimen) | + + + +---------+ + + | Performing | Address | City/State/Zipcode | Phone Number | | Organization | | | | + +---------+ + + | EXTERNAL LAB | | | | + +---------+ + + Magnesium (04/03/2019 5:17 AM PDT) + + + + + + | Component | Value | Ref Range | Performed | Pathologist | | | | | At | Signature | + + + + + + | Magnesium | 3.7 (H)Comment: SPECIMEN | 1.7 - 2.4 mg/dL | EXTERNAL | | | | SLIGHTLY | | LAB | | | | HEMOLYZEDTesting | | | | | | performed at [facility], [address] | | | | | | [address], | | | | | | [place] [address] | | | | + + + [...] + +---------+ + + Basic Metabolic Panel (04/03/2019 5:17 AM PDT) + + + + [...] + + + | K | 6.0 (H)Comment: SPECIMEN | 3.5 - 4.9 | EXTERNAL [...] + + + + | Glucose, | 78Comment: SPECIMEN | 65 - 99 mg/dL | EXTERNAL | | | Fasting | SLIGHTLY HEMOLYZED | | LAB | | + + + + + + | BUN | 50 (H) | 8 - 25 mg/dL | EXTERNAL | | | | | | LAB | | + + + + + + | Creatinine | 11.0 (H)Comment: | 0.50 - 1.00 | EXTERNAL | | | | SPECIMEN SLIGHTLY | mg/dL | LAB | | | | HEMOLYZED | | | | + + + + + + | BUN/Creatin | 5 | | EXTERNAL | | | ine [...] | | | | performed at [facility], [address] | | | | | | [facility], | | | | | | [place] [address] | | | | + + + [...] + + CT Abdomen Pelvis w Contrast (04/02/2019 5:40 PM PDT) + + | Specimen | + + | | + + + + + | Impressions | Performed At | + + + | 1. Left adrenal mass is unchanged compared to studies back to | | | 09/07/2017 2. Bilateral small kidneys consistent with a history of | | | renal failure 3. Sigmoid diverticulosis but no evidence of | | | diverticulitis. 4. Segregation of loops of small bowel in the right | | | abdomen with a suggestion of a thin surrounding membrane likely | | | secondary to the chronic inflammation of peritoneal dialysis. This | | | may predispose to bowel obstruction. But no evidence of obstruction | | | at this point in time. 5. The left and right ovary appear to be | | | slightly increased in size. While the right ovarian complex cystic | | | masses being surveilled with ultrasound further evaluation with CA | | | 125 levels if not previously performed should be considered. Signed | | | by: Bianka Contreras, Benji Sign Date/Time: 04/02/2019 6:45 PM | | + + + + + + | Narrative | Performed At | + + + | CT ABDOMEN AND PELVIS WITH CONTRAST CLINICAL INFORMATION: Left | | | lower quadrant pain. COMPARISON: IR GUIDANCE VASCULAR ACCESS US | | | (2019); US ABDOMEN LIMITED (02/01/2019); US PELVIS WITH | | | ENDOVAGINAL (02/01/2019); CT ABDOMEN AND PELVIS WITHOUT AND WITH | | | CONTRAST AND ANGIOGRAPHY (01/04/2019); CT ABDOMEN PELVIS W CONTRAST | | | (09/07/2017); PROCEDURE: Axial images through the abdomen and pelvis | | | after the administration of 70 ml OMNIPAQUE 350 intravenous | | | contrast. Multiplanar reconstructions. At least one of the following | | | CT dose optimization techniques were used: Automated exposure | | | control; Adjustment of mA and/or kV according to patient size; Use of | | | iterative reconstruction technique. FINDINGS: LUNG BASES: No | | | significant pulmonary abnormality. No pleural effusion or | | | pneumothorax. ABDOMEN Liver and Biliary: No gallbladder or biliary | | | abnormality. No significant liver abnormality. Pancreas, Spleen and | | | Adrenals: No pancreatitis or pancreatic mass. No splenomegaly, | | | splenic mass or splenic hemorrhage. 14 mm left adrenal mass is | | | unchanged compared to the prior examination = 38 Hounsfield units | | | attenuation. Kidneys: Kidneys appear small. No evidence of mass, | | | stone, hydronephrosis. ABDOMEN AND PELVIS Bowel: Nonobstructive | | | bowel pattern. Although there appears to be "cocooning" of small | | | bowel loops in the right lower quadrant of the abdomen likely | | | associated with chronic inflammation from peritoneal dialysis. And | | | this can predispose to bowel obstruction. No evidence of bowel wall | | | thickening or mass. The appendix is normal in caliber. Moderate | | | colonic diverticulosis of the descending and sigmoid colon but no | | | evidence of diverticulitis. Patient does have missed the mesentery | | | particularly in the pelvis anteriorly but no adenopathy. Vessels: No | | | significant abnormality in the aorta or its proximal branches. No | | | significant abnormality in the portal veins, mesenteric veins or | | | systemic veins. Lymph Nodes: No adenopathy. Peritoneum and | | | Retroperitoneum: No ascites or free air. No significant | | | retroperitoneal abnormality. PELVIS Genitourinary: Distal ureters | | | are unremarkable. Urinary bladder is contracted not well seen but | | | no obvious mass or stone. The reticulated appearing "missed the | | | mesentery" in the pelvis likely residual of prior peritoneal dialysis | | | as described above. Left ovary appears slightly increased in size | | | compared to the prior examination and the right ovary is again noted | | | to be asymmetrically larger than the contralateral side. Previously | | | reported as a complex cystic mass. BODY WALL Soft Tissues: No bowel | | | or inflamed fat containing hernia, mass or hemorrhage. Bones: No | | | acute fracture or vertebral end plate destruction. No lytic or | | | blastic lesion. | | + + + + + | Procedure Note | + + | Endy, Rad Conversion - 06/22/2019 11:[address] ABDOMEN AND PELVIS WITH CONTRAST | | CLINICAL INFORMATION: | | Left lower quadrant pain. | | COMPARISON: | | IR GUIDANCE VASCULAR ACCESS US (2019); US ABDOMEN LIMITED | | (02/01/2019); US PELVIS WITH ENDOVAGINAL (02/01/2019); CT ABDOMEN AND | | PELVIS WITHOUT AND WITH CONTRAST AND ANGIOGRAPHY (01/04/2019); CT | | ABDOMEN PELVIS W CONTRAST (09/07/2017); | | PROCEDURE: | | Axial images through the abdomen and pelvis after the administration of | | 70 ml OMNIPAQUE 350 intravenous contrast. Multiplanar reconstructions. | | At least one of the following CT dose optimization techniques were | | used: Automated exposure control; Adjustment of mA and/or kV according | | to patient size; Use of iterative reconstruction technique. | | FINDINGS: | | LUNG BASES: No significant pulmonary abnormality. No pleural effusion | | or pneumothorax. | | ABDOMEN | | Liver and Biliary: No gallbladder or biliary abnormality. No | | significant liver abnormality. | | Pancreas, Spleen and Adrenals: No pancreatitis or pancreatic mass. No | | splenomegaly, splenic mass or splenic hemorrhage. 14 mm left adrenal | | mass is unchanged compared to the prior examination = 38 [place] | | units attenuation. | | Kidneys: Kidneys appear small. No evidence of mass, stone, | | hydronephrosis. | | ABDOMEN AND PELVIS | | Bowel: Nonobstructive bowel pattern. Although there appears to be | | "cocooning" of small bowel loops in the right lower quadrant of the | | abdomen likely associated with chronic inflammation from peritoneal | | dialysis. And this can predispose to bowel obstruction. No evidence | | of bowel wall thickening or mass. The appendix is normal in caliber. | | Moderate colonic diverticulosis of the descending and sigmoid colon but | | no evidence of diverticulitis. Patient does have missed the mesentery | | particularly in the pelvis anteriorly but no adenopathy. | | Vessels: No significant abnormality in the aorta or its proximal | | branches. No significant abnormality in the portal veins, mesenteric | | veins or systemic veins. | | Lymph Nodes: No adenopathy. | | Peritoneum and Retroperitoneum: No ascites or free air. No significant | | retroperitoneal abnormality. | | PELVIS | | Genitourinary: Distal ureters are unremarkable. Urinary bladder is | | contracted not well seen but no obvious mass or stone. The reticulated | | appearing "missed the mesentery" in the pelvis likely residual of prior | | peritoneal dialysis as described above. Left ovary appears slightly | | increased in size compared to the prior examination and the right ovary | | is again noted to be asymmetrically larger than the contralateral side. | | Previously reported as a complex cystic mass. | | BODY WALL | | Soft Tissues: No bowel or inflamed fat containing hernia, mass or | | hemorrhage. | | Bones: No acute fracture or vertebral end plate destruction. No lytic | | or blastic lesion. | | IMPRESSION: | | 1. Left adrenal mass is unchanged compared to studies back to 09/07/2017 | | 2. Bilateral small kidneys consistent with a history of renal failure | | 3. Sigmoid diverticulosis but no evidence of diverticulitis. | | 4. Segregation of loops of small bowel in the right abdomen with a | | suggestion of a thin surrounding membrane likely secondary to the | | chronic inflammation of peritoneal dialysis. This may predispose to | | bowel obstruction. But no evidence of obstruction at this point in | | time. | | 5. The left and right ovary appear to be slightly increased in size. | | While the right ovarian complex cystic masses being surveilled with | | ultrasound further evaluation with CA 125 levels if not previously | | performed should be considered. | | Signed by: Bianka Contreras Dwane | | Sign Date/Time: 04/02/2019 6:45 PM | + + HCG, Serum, Quant (04/02/2019 3:36 PM PDT) + + + + + + | Component | Value | Ref Range | Performed | Pathologist | | | | | At | Signature | + + + + + + | hCG Quant, | <4Comment: APPROX | mIU/mL | EXTERNAL | | | Serum | GESTATIONAL AGE..APPROX | | LAB | | | | HCG RANGE 0.2 - 1 WEEK . | | | | | | . . . . 5 - 501 - 2 | | | | | | WEEKS . . . . . 50 - | | | | | | 5002 - 3 WEEKS . . . . | | | | | | 100 - 84360 - 4 WEEKS | | | | | | . . . . 500 - 782861 - | | | | | | 5 WEEKS . . . . 1000 - | | | | | | 919604 - 6 WEEKS . . . | | | | | | 29383 - 1391244 - 8 | | | | | | WEEKS . . . 68095 - | | | | | | 5415939 - 3 MONTHS . . . | | | | | | 92280 - 195155 Testing | | | | | | [place] [facility] | | | | | | [facility];[place] | | | | | | [address] | | | | + + + [...] + +---------+ + + ECG 12 lead (04/02/2019 3:30 PM PDT) + + + + + + | Component | Value | Ref Range | Performed | Pathologist | | | | | At | Signature | + + + + + + | DIAGNOSIS: | Normal sinus rhythmRight | | EXTERNAL | | | | superior axis | | LAB | | | | deviationAbnormal | | | | | | ECGWhen compared with | | | | | | ECG of 05-FEB-2019 | | | | | | 17:30,QRS axis Shifted | | | | | | leftT wave inversion no | | | | | | longer evident in | | | | | | Anterior leadsThis ECG | | | | | | contains Unconfirmed | | | | | | Interpretation | | | | | | Statements. See ED | | | | | | Record for Physician | | | | | | Interpretation. | | | | | | Confirmed by MUSE READ | | | | | | ONLY, -COMPUTER ([id number]), | | | | | | makeup editor Yesenia King | | | | | | ([phone]) on 04/03/2019 | | | | | | 2:58:40 AM | | | | + + + + + + + + | Specimen | + + | | + + + + + | Narrative | Performed At | + + + | Historically converted procedure from [facility] environment | EXTERNAL LAB | + + + + +---------+ + + | Performing | Address | City/State/Zipcode | Phone Number | | Organization | | | | + +---------+ + + | EXTERNAL LAB | | | | + +---------+ + + External Lab: [facility] (04/02/2019 12:44 PM PDT) + + + + + + | Component | Value | Ref Range | Performed | Pathologist | | | | | At | Signature | + + + + + + | WBC | 18.30 (H) | 3.80 - 11.00 | EXTERNAL | | | | | K/uL | LAB | | + + + + + + | Red Blood | 5.54 (H) | 3.70 - 5.10 | EXTERNAL | | | Cells | | M/uL | LAB | | | Counted | | | | | + + + + + + | Hemoglobin | 15.3 | 11.3 - 15.5 | EXTERNAL | | | | | g/dL | LAB | | + + + + + + | Hematocrit, | 48.0 (H) | 34.0 - 46.0 % | EXTERNAL | | | POC | | | LAB | | + + + + + + | MCV | 86.7 | 80.0 - 100.0 fl | EXTERNAL | | | | | | LAB | | + + + + + + | MCH | 27.6 | 27.0 - 34.0 pg | EXTERNAL [...] + + + + | Platelet | 364 | 150 - 400 K/uL | EXTERNAL [...] + + + | % Segmented | 93.17 | % | EXTERNAL | | | | | | LAB | | | Neutrophils | | | | | + + + + + + | % | 4.06 | % | EXTERNAL | | | Lymphocytes | | | LAB | | + + + + + + | % Monocytes | 1.85 | % | EXTERNAL | | | | | | LAB | | + + + + + + | % | 0.47 | % | EXTERNAL | | | Eosinophils | | | LAB | | + + + + + + | % Basophils | 0.45 | % | EXTERNAL | | | | | | LAB | | + + + + + + | Absolute | 17.05 (H) | 1.90 - 7.40 | EXTERNAL | | | Segmented | | K/uL | LAB | | | Neutrophils | | | | | + + + + + + | Absolute | 0.74 (L) | 1.00 - 3.90 | EXTERNAL | | | Lymphocytes | | K/uL | LAB | | + + + + + + | Absolute | 0.34 | 0.00 - 0.80 | EXTERNAL | | | Monocytes | | K/uL | LAB | | + + + + + + | Absolute | 0.09 | 0.00 - 0.50 | EXTERNAL | [...] | | | | performed at [facility] | | | | | | [address];[place] | | | | | | [address] | | | | + + + + + + + + | Specimen | + + | Blood specimen | | (specimen) | + + + +---------+ + + | Performing | Address | City/State/Zipcode | Phone Number | | Organization | | | | + +---------+ + + | EXTERNAL LAB | | | | + +---------+ + + Lactic Acid (04/02/2019 12:44 PM PDT) + + + + + + | Component | Value | Ref Range | Performed | Pathologist | | | | | At | Signature | + + + + + + | Lactate | 2.1 (H)Comment: Testing | 0.4 - 2.0 | EXTERNAL | | | | performed at [facility];[address] | mmol/L | LAB | | | | [address];[place] | | | | | | [address] | | | | + + + [...] + +---------+ + + Comprehensive Metabolic Panel (04/02/2019 12:44 PM PDT) + + + + + + | Component | Value | Ref Range | Performed | Pathologist | | | | | At | Signature | + + + + + + | Na | 139 | 135 - 145 | EXTERNAL | | | | | mmol/L | LAB | | + + + + + + | K | 6.2 (H) | 3.5 - 4.9 | EXTERNAL [...] + + + + | Glucose, | 108 (H) | 65 - 99 mg/dL | EXTERNAL | | | Fasting | | | LAB | | + + + + + + | BUN | 42 (H) | 8 - 25 mg/dL | EXTERNAL | | | | | | LAB | | + + + + + + | Creatinine | 9.19 (H) | 0.50 - 1.00 | EXTERNAL | | | | | mg/dL | LAB | | + + + + + + | BUN/Creatin | 5 | | EXTERNAL | | | ine Ratio | | | LAB | | + + + + + + | Calcium | 10.5 | 8.5 - 10.5 | EXTERNAL | | | | | mg/dL | LAB | | + + + + + + | Protein, | 8.4 (H) | 6.3 - 8.2 g/dL | EXTERNAL | | | Total | | | LAB | | + + + + + + | Albumin | 5.0 | 3.6 - 5.0 g/dL | EXTERNAL | | | | | | LAB | | + + + + + + | Globulin | 3.4 | 1.3 - 4.9 g/dL | EXTERNAL [...] + + + + | ALP, | 98 | 35 - 115 U/L | EXTERNAL | | | External | | | LAB | | + + + + + + | AST | 17 | 10 - 45 U/L | EXTERNAL | | | | | | LAB | | + + + + + + | ALT | 7 (L) | 10 - 65 U/L | [...] | | | | | | MDRD IDSC traceable | | | | | | equation.Testing | | | | | | performed at [facility] | | | | | | [facility];[place], [place] | | | | | | [address] | | | | + + + [...] + | Diagnosis | + + | Nausea vomiting and diarrhea Nausea with vomiting | + + | ESRD on hemodialysis (HCC) End stage renal disease | + + | Hyperkalemia Hyperpotassemia | + + | Leukocytosis, unspecified type | + + documented in this encounter
--- OUTSIDE RECORDS SUMMARY | ~2020-04-05 | XMS | Encounter Summary ---
Demographics + + + | Address | [address] | | | [place] [address] | + + + | Home Phone [...] [place], [place] | | | | | [address] | | + + + + + | Lydia Palm | ECON | [place], [place] | | | | | [address] | | + + + + + | melinda METZ" | ECON | [place], [place] | | | reba | | [address] | | + + + + + | Jose C Oconnor | ECON | [place] | | | | | [place] | | | | | [address] | | + + + + + Care Team Providers + +------+ + | Care Environmental Issues Instructor Name | Role | Phone | [...] + + | 07/22/ | Telephone | [facility] | Qasim Pederson MD | Other | | 2019 | | VASCULAR SURGERY | [address] | | | | | [address] | [place], [place] | | | | | [place], [place] | [address] | | | | | [address] | | | | | | [phone] | | | +--------+ + + + [...]
--- OUTSIDE RECORDS SUMMARY | ~2020-04-05 | XMS | Encounter Summary ---
Demographics + + + | Address | [address] | | | [place] [address] | + + + | Home Phone [...] [place], [place] | | | | | [address] | | + + + + + | Lydia Palm | ECON | [place], [place] | | | | | [address] | | + + + + + | melinda METZ" | ECON | [place], [place] | | | reba | | [address] | | + + + + + | Jose C Oconnor | ECON | [place] | | | | | [place] | | | | | [address] | | + + + + + Care Team Providers + +------+ + | Care Mobile Nurse Name | Role | Phone | [...] + + + + | 09/03/ | [facility] | [facility] | Lina Longoria, | Postoperative | | 2019 - | Encounter | [facility] [address] | PA-C [address] | infection, | | | | [address] | BLVD [place], [place] | unspecified type, | | 09/08/ | | [place], [place] | [address] | initial encounter | | 2019 | | [address] | | (Primary Dx); | | | | [phone] | Hilda Edwards, | Infected prosthetic | | | | | DO [address] | vascular graft, | | | | | [place] [address] | initial encounter | | | | | [phone] | (HCC); 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 | | | | | Brandin Cortez, | graft, initial | | | | | MD [address] | encounter (HCC); AV | | | | | [place] [address] | graft malfunction, | | | | | [phone] | initial encounter | | | | | | (HCC); Bleeding from | | | | | Herberth Escoto, | dialysis shunt, | | | | | MD [address] | initial encounter | | | | | [place] [address] | (HCC); Abnormal EKG; | | | | | [phone] | ESRD on | | | | | | hemodialysis ([facility]); | | | | | | Anemia in ESRD | | | | | | (end-stage renal | | | | | | disease) ([facility]); | | | | | | Hypertension, | | | | | | unspecified type; | | | | | | Hyperphosphatemia | +--------+ + + + + Social [...] might be different f rom the original. [facility]: Hospitalist Discharge Summary Date of Admission: 09/03/2019 Date of Discharge: 09/08/2019 Discharge Provider: Herberth Escoto MD Consulting Provider: Dr Cara ALLEN, Dr Ramos - Vascular Surgery Discharge Diagnoses: Principal Problem: Infected prosthetic vascular graft, initial encounter ESRD BRIEF HISTORY OF PRESENTATION: Ramona Oconnor is a 39 y.o. female with ESRD, HTN, who was admitted for infec medina AV graft in the [facility], who had inititally had L arm AV graft using bovine carotid artery J une 2018, course complicated by wound dehiscence, underwent wound washout and wound vac placement 05/26/19, Taken back to [place] 07/08/19 due to graft being exposed for another washout and replacement of wound vac, which was eventually removed. Patient was seen in [facility] clinic 08/24/19 for wound check and graft [...] Follow up: Linden Alonzo MD [address] [facility] [phone] Cathie Marroquin MD [address] [facility] [phone] In 2 weeks [facility] VASCULAR SURGERY [address] [place] [address] In 1 week Discharge Medications New Medications [...] tablets by | 270 | 0 | 30/20 | | | carbonate (RENVELA) | mouth [...] or concerns. Pt instructed to con candelaria MD with any concerns or if signs/symptoms re-occur [...] Home: none Pharmacy Pharmacy/Medication needs: other (see comments)(master anderson in [place]) Notes: Pt ready for discharge, family to transfer, gas voucher given to Pt family for manuel tance in transportation needs. Pt has appointment for tomorrow with [facility] wound care elizabeth at 1430. Pt will see dialysis on Friday to restart and get IV ABX. Electronically signed: Florentino Faye RN 09/08/2019 13:03 Nisha Lucio RN - 09/08/2019 10:[address] [facility] Service: Wound/Ostomy Care Progress Note Patient has upcoming discharged plan. Current plan of care is to have NPWT dressing changed tomorrow at [facility]. This is within the 72 hour time frame. To help minimize pain and maximize healing potential with wound VAC dressing will not be changed today. Patient has H omeVAC in room that will be used when traveling. Versatel given to patient for next dressing change. Two canisters for ActiVAC given. Hospit al VAC D/muna in [facility]. Nisha Weston RN 10:53 09/08/19 Eliazar Renee, Pharm D - 09/08/2019 10:30 AM PDTVancomycin Monitoring Day 6 Serum creatinine: 10 mg/dL (H) 09/08/19 0447 Estimated creatinine clearance: 7 mL/min (A) WBC = 8.38 K/uL Dialysis today. Plan per protocol: Vancomycin 1000 mg IV once during last hour or immediately following each hemodialysis sess ion Per ID, will need at least 4 weeks of antibiotics 09/08/2019 10:22 Pharmacist: ELIAZAR VANEGAS PharmD Linden Kincaid MD - 09/08/2019 9:40 AM PDT [facility]: NEPHROLOGY Progress Note Ramona Oconnor 39 y.o. [id number] 401/401-01 female No Physician on file Hospital [...] 10/25/15 showed normal sized kidneys. 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 GERD (gastroesophageal reflux disease) Hypercalcemia 09/07/2017 Hyperphosphatemia [...] ; Surgeon: Qasim Pederson MD; Location: [facility] MAIN OR AV FISTULA REPAIR Left 09/03/2019 Procedure: Resection of left arm AV graft with wound vac placement; Surgeon: Lexi Posada; Location: [facility] MAIN OR CATHETER REMOVAL 02/04/2019 Procedure: DIALYSIS CATHETER - REMOVAL; Surgeon: Qasim Pederson MD; Location: [facility] MAIN OR ; Service: Vascular; Laterality: N/A; Infected PD catheter removal DEBRIDEMENT Left 07/08/2019 Procedure: LEFT AXILLA WOUND DEBRIDEMENT, WASHOUT AND POSSIBLE WOUND VAC PLACEMENT; Surge on: Qasim Pederson MD; Location: [facility] MAIN OR OTHER SURGICAL HISTORY Left 03/11/2019 AV FISTULA PLACEMENT - Procedure: AV FISTULA; Surgeon: Qasim Pederson MD; Location: [facility]; Service: Vascular; Laterality: Left; OTHER SURGICAL HISTORY HARDWARE PRESENT OTHER SURGICAL HISTORY Right 01/2019 chest wall OTHER SURGICAL HISTORY Left 05/06/2019 AV GRAFT CREATION - Procedure: AV GRAFT CREATION; Surgeon: Qasim Pederson MD; Location: [facility] MAIN OR; Service: Vascular; Laterality: Left; bovine carotid graft OTHER SURGICAL HISTORY Left 05/26/2019 WOUND VAC PLACEMENT/REPLACEMENT - Procedure: WOUND VAC - PLACEMENT - REPLACEMENT; Surgeon : Qasim Pederson MD; Location: [facility] MAIN OR; Service: Vascular; Laterality: Left; PERITONEAL CATHETER PLACEMENT/REMOVAL 10/28/2015 Procedure: LAPAROSCOPIC - PERITONEAL DIALYSIS CATH INSERTION; Surgeon: Mundo Ramos MD; Lo cation: [facility] MAIN OR; Service: Vascular; Laterality: N/A; UPPER GASTROINTESTINAL ENDOSCOPY 09/10/2017 Procedure: ESOPHAGOGASTRODUODENOSCOPY; Surgeon: Beena Peters MD; Location: [facility] ENDOSCOP Y; Service: Gastroenterology; Laterality: N/A; WISDOM TOOTH EXTRACTION Facility-Administered Medications Prior to Admission Medication Dose Route Frequency Provider Last Rate Last Dose HYDROcodone-acetaminophen (NORCO) 5-325 mg per tablet 1-2 tablet 1-2 tablet Oral Q4H P MICHELLE Jeronimo PA-C Medications Prior to Admission Medication [...] earlier and charting completed later Dictation software, [employer], used which may contain error for similar sounding words even af ter review. Personal communication requested for any clarification. Florentino Ling RN - 09/08/2019 9:30 AM PDTCar e Management Follow-Up Readmission Risk: Medium Current Discharge Plan Anticipated Discharge Disposition: home Expected DC Date: Barriers to Discharge: Steps Taken Toward Discharge: Faxed Referral to wound care to [facility] and called Neelima denice patricio has accepted and schedule appointment for 09/09/2019 @ 1430 Next Steps: d/c Community Support Services Current Outpt/Agency/Support Groups: outpatient hemodialysis (specify) Community Agency Name: [facility] wound clinic Other Resources: Discharge Transportation Transportation [...] today. No dose 09/07/2019 13:32 Pharmacist: ELIAZAR VANEGAS PharmD Linden Kincaid MD - 09/07/2019 11:35 AM PDT [facility]: NEPHROLOGY Progress Note Ramona Oconnor 39 y.o. [id number] 401/401-01 female No Physician on file Hospital [...] 10/25/15 showed normal sized kidneys. 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 GERD (gastroesophageal reflux disease) Hypercalcemia 09/07/2017 Hyperphosphatemia [...] ; Surgeon: Qasim Pederson MD; Location: [facility] MAIN OR AV FISTULA REPAIR Left 09/03/2019 Procedure: Resection of left arm AV graft with wound vac placement; Surgeon: Lexi Posada; Location: [facility] MAIN OR CATHETER REMOVAL 02/04/2019 Procedure: DIALYSIS CATHETER - REMOVAL; Surgeon: aQsim Pederson MD; Location: [facility] MAIN OR ; Service: Vascular; Laterality: N/A; Infected PD catheter removal DEBRIDEMENT Left 07/08/2019 Procedure: LEFT AXILLA WOUND DEBRIDEMENT, WASHOUT AND POSSIBLE WOUND VAC PLACEMENT; Surge on: Qasim Pederson MD; Location: [facility] MAIN OR OTHER SURGICAL HISTORY Left 03/11/2019 AV FISTULA PLACEMENT - Procedure: AV FISTULA; Surgeon: Qasim Pederson MD; Location: [facility] OR; Service: Vascular; Laterality: Left; OTHER SURGICAL HISTORY HARDWARE PRESENT OTHER SURGICAL HISTORY Right 01/2019 chest wall OTHER SURGICAL HISTORY Left 05/06/2019 AV GRAFT CREATION - Procedure: AV GRAFT CREATION; Surgeon: Qasim Pederson MD; Location: [facility] MAIN OR; Service: Vascular; Laterality: Left; bovine carotid graft OTHER SURGICAL HISTORY Left 05/26/2019 WOUND VAC PLACEMENT/REPLACEMENT - Procedure: WOUND VAC - PLACEMENT - REPLACEMENT; Surgeon : Qasim Pederson MD; Location: [facility] MAIN OR; Service: Vascular; Laterality: Left; PERITONEAL CATHETER PLACEMENT/REMOVAL 10/28/2015 Procedure: LAPAROSCOPIC - PERITONEAL DIALYSIS CATH INSERTION; Surgeon: Mundo Ramos MD; Lo cation: [facility] MAIN OR; Service: Vascular; Laterality: N/A; UPPER GASTROINTESTINAL ENDOSCOPY 09/10/2017 Procedure: ESOPHAGOGASTRODUODENOSCOPY; Surgeon: Beena Peters MD; Location: [facility]; Service: Gastroenterology; Laterality: N/A; [...] 24 hour(s)) CBC no Differential Collection Time: 10/29/19 4:31 Result Value Ref Range WBC 8.66 [...] earlier and charting completed later Dictation software, [employer], used which may contain error for similar sounding words even af ter review. Personal communication requested for any clarification. Man Jha PA-C - 09/07/2019 9:03 AM PDTFo rmatting of this note might be different from the original. [facility]: Vascular Surgery Progress Note Post-Op Day: [...] 08/26 patient was emergently t ransferred to [facility] for severe bleeding from left [...] CV: No peripheral edema, rate regular SKIN: [place], warm, dry without rash/lesion MS: ROM not [...] Esparza MD - 09/07/2019 8:31 AM PDT [facility] Hospitalist Progress Note Hospital Day: 4 Patient Summary: 39 y/o F with ESRD, HTN, who was admitted for infected AV graft in the [facility], who had initita lly had L arm [...] 276 MCV 88.9 88.5 Recent Labs Lab 09/07/1943009/06/19 0514 09/05/19 0526 09/03/19 1332 NA 137 135 136 < > [...] in this interval not displayed. Recent Labs 09/07/19 0431 09/06/19 0514 09/05/19 0526 GLU 93 78 91 No results for input(s): TROPONIN, BNP in the last 72 hours. No results for input(s): PROTIME, INR, PTT in the last 168 hours. No results for input(s): IRON, TIBC, PCTSAT, FERRITIN, TSH, [id number], FOLATE in the last 168 hours. No [...] least 50% of time was spent in [id number] coordination of care and counseling. All questions [...] Steps Taken Toward Discharge: Followed up on [facility] Home health referral Next Steps: Face to face needs to be written at discharge and faxed to [facility] . Community Support Services Current Outpt/Agency/Support Groups: outpatient hemodialysis (specify) Community Agency Name: Sonia Castillo Other Resources: [facility] Discharge Transportation Transportation Needs: none Notes: CM called and followed up on referral sent yesterday. Fly Patricio received referral and accepting pending face to face home health order at discharge. ADDENDUM: CM discussed with Pt again on home health, Pt states she would like to continue w ound vac dressing changes at [facility] wound care center and has her own wound vac. She w as getting dressing changes Friday, and Friday. I called the wound clinic and Antonio Patricio wants new wound vac orders in place [...] after dialysis today. 09/06/2019 15:36 Pharmacist: ELIAZAR VANEGAS PharmD Amrita Lindsey RN - 09/06/2019 12:33 PM PDT [facility]: Wound Care NPWT Note Hospital Day: [...] to follow with you. JUJU Saldaña RN [facility] 09/06/19 12:38 Florentino Granados RN - 09/06/2019 11:16 AM PDTCare Management Follow-Up Readmission Risk: Medium Current Discharge Plan Anticipated Discharge Disposition: home Expected DC Date: Barriers to Discharge: Steps Taken Toward Discharge: called [facility] liaison for [facility] and notified her o f IV ABX with HD, sent referral to [facility] for wound Vac care. Next Steps: follow-up with home health on acceptance. Community Support Services Current Outpt/Agency/Support Groups: outpatient hemodialysis (specify) Community Agency Name: Other Resources: Discharge Transportation Transportation Needs: none Notes: Called [facility] liaison for [facility] and notified her of HD with IV ABX, Soo will fol low. I sent referral to [facility] TLC. CM will follow up with for wound va c. Wound Vac pre-authorization form signed and sent to Teodora mclaughlin for [employer]. Electronically signed: Florentino Faye RN 09/06/2019 11:16 Katiana, Cathie Buck MD - 09/06/2019 9:45 AM PDTFormatting of this note might be different from the [facility] Service: Infectious Diseases Progress Note [...] intact. Follows commands. LABS: MICRO Culture, Blood [[id number]] Collected: 09/03/192015 Order Status: Completed Specimen: Blood Updated: 09/05/19 0521 Special Requests DIALYSIS PORT Special Requests Testing performed at [facility];[address] [place] [address];[place] [address] RESULT NO GROWTH 2 DAYS RESULT Testing performed at [facility], [address] [place] [address] Comment: Testing performed at [facility], [address] [place] [address] Culture, Tissue, Smear, with Anaerobes [[id number]] (Abnormal) Collected: 09/03/191722 Order Status: Completed Specimen: Tissue from Arm, Left Updated: 09/06/19 0915 Special Requests L ARM Special Requests Testing performed at [facility];[address] [place] [address] Gram Stain Result -- 3+ WBC'S SEEN Gram Stain Result -- 4+ GRAM POSITIVE COCCI Gram Stain Result Testing performed at [facility], [address] [place] [address] RESULT --Abnormal 2+ ENTEROCOCCUS FAECALIS Aminoglycosides (except for high-level resistance testing), cephalosporins, clindamycin, an d trimethoprim-sulfamethoxazole may appear active in vitro but they are not effective clinic ally. Abnormal Susceptibility Enterococcus faecalis (1) Antibiotic Interpretation Vitek 2XL Method Status Ampicillin Sensitive SUSCEPTIBLE CORINNE Preliminary Penicillin G Sensitive SUSCEPTIBLE CORINNE Preliminary Levofloxacin Sensitive SUSCEPTIBLE CORINNE Preliminary Vancomycin Sensitive SUSCEPTIBLE CORINNE Preliminary Testing performed at [facility], [address] [place] [address], [place] [address] Culture, Wound, Smear, w/Anaerobe [[id number]] (Abnormal) Collected: 09/03/19 1627 Order Status: Completed Specimen: Tissue from Arm, Left Updated: 09/06/19 0913 Special Requests LT ARM GRAFT SITE Special Requests Testing performed at [facility];[address] [place] [address];[place] [address] Gram Stain Result WBC'S SEEN Gram Stain Result GRAM POSITIVE COCCI Gram Stain Result STAIN PERFORMED ON CYTOSPIN Gram Stain Result Testing performed at [facility];[address] [place], [place] [address] RESULT --Abnormal 2+ ENTEROCOCCUS FAECALIS Aminoglycosides (except for high-level resistance testing), cephalosporins, clindamycin, an d trimethoprim-sulfamethoxazole may appear active in vitro but they are not effective clinic ally. Abnormal Susceptibility Enterococcus faecalis (1) Antibiotic Interpretation Vitek 2XL Method Status Ampicillin Sensitive SUSCEPTIBLE CORINNE Preliminary Penicillin G Sensitive SUSCEPTIBLE CORINNE Preliminary Levofloxacin Sensitive SUSCEPTIBLE CORINNE Preliminary Vancomycin Sensitive SUSCEPTIBLE CORINNE Preliminary Testing performed at [facility], [address] [place] [address] All labs were reviewed.Data: Recent Results (from [...] with HD ---blood cultures NGTD Dictation software, [employer], used which may contain error for similar sounding words even af ter review. Personal communication requested for any clarification. Portions of this chart may have been copied from previous notes for continuity of care purp ose Cathie Marroquin MD Infectious Diseases 09/06/2019 anke, Kaylen cason PA-C - 09/06/2019 9:36 AM PDTFormatting of this note might be different from the or iginal. [facility]: Vascular Surgery Progress Note Post-Op Day: [...] 08/26 patient was emergently t ransferred to [facility] for severe bleeding from left [...] CV: No peripheral edema, rate regular SKIN: [place], warm, dry without rash/lesion MS: ROM not [...] Cortez MD - 09/06/2019 8:04 AM PDT [facility]: Hospitalist Progress Note Pt: Ramona Oconnor AGE/SEX: 39 y.o. female ROOM: 401/401-01 : 1980 PCP: No Physician on file [...] rounding focused on the patient. Dictation software, [employer], used which may contain error [...] Kincaid MD - 09/05/2019 5:17 PM PDT [facility]: NEPHROLOGY Progress Note Ramona Ocnonor 39 y.o. [id number] 401/401-01 female No Physician on file Hospital [...] 10/25/15 showed normal sized kidneys. 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 GERD (gastroesophageal reflux disease) Hypercalcemia 09/07/2017 Hyperphosphatemia [...] ; Surgeon: Qasim Pederson MD; Location: [facility] MAIN OR AV FISTULA REPAIR Left 09/03/2019 Procedure: Resection of left arm AV graft with wound vac placement; Surgeon: Lexi Posada; Location: [facility] MAIN OR CATHETER REMOVAL 02/04/2019 Procedure: DIALYSIS CATHETER - REMOVAL; Surgeon: Qasim Pederson MD; Location: [facility] MAIN OR ; Service: Vascular; Laterality: N/A; Infected PD catheter removal DEBRIDEMENT Left 07/08/2019 Procedure: LEFT AXILLA WOUND DEBRIDEMENT, WASHOUT AND POSSIBLE WOUND VAC PLACEMENT; Surge on: Qasim Pederson MD; Location: [facility] MAIN OR OTHER SURGICAL HISTORY Left 03/11/2019 AV FISTULA PLACEMENT - Procedure: AV FISTULA; Surgeon: Qasim Pederson MD; Location[facility]; Service: Vascular; Laterality: Left; OTHER SURGICAL HISTORY HARDWARE PRESENT OTHER SURGICAL HISTORY Right 01/2019 chest wall OTHER SURGICAL HISTORY Left 05/06/2019 AV GRAFT CREATION - Procedure: AV GRAFT CREATION; Surgeon: Qasim Pederson MD; Location: [facility] MAIN OR; Service: Vascular; Laterality: Left; bovine carotid graft OTHER SURGICAL HISTORY Left 05/26/2019 WOUND VAC PLACEMENT/REPLACEMENT - Procedure: WOUND VAC - PLACEMENT - REPLACEMENT; Surgeon : Qasim Pederson MD; Location: [facility] MAIN OR; Service: Vascular; Laterality: Left; PERITONEAL CATHETER PLACEMENT/REMOVAL 10/28/2015 Procedure: LAPAROSCOPIC - PERITONEAL DIALYSIS CATH INSERTION; Surgeon: Mundo Ramos MD; Lo cation: [facility] MAIN OR; Service: Vascular; Laterality: N/A; UPPER GASTROINTESTINAL ENDOSCOPY 09/10/2017 Procedure: ESOPHAGOGASTRODUODENOSCOPY; Surgeon: Beena Peters MD; Location: [facility]; Service: Gastroenterology; Laterality: N/A; [...] earlier and charting completed later Dictation software, [employer], used which may contain error [...] might be different from th e original. [facility]: Infectious Diseases Progress Note Hospital [...] intact. Follows commands. LABS: MICRO Culture, Blood [[id number]] Collected: 09/03/192015 Order Status: Completed Specimen: Blood Updated: 09/05/19 0521 Special Requests DIALYSIS PORT Special Requests Testing performed at [facility];[address] [place] [address] RESULT NO GROWTH 2 DAYS RESULT Testing performed at [facility], [address] [place] [address] Comment: Testing performed at [facility], [address] [place] [address] Culture, Tissue, Smear, with Anaerobes [[id number]] Collected: 09/03/19 1723 Order Status: Completed Specimen: Tissue from Arm, Left Updated: 09/04/19 1800 Special Requests L ARM Special Requests Testing performed at [facility];[address] [place] [address] Gram Stain Result -- 3+ WBC'S SEEN Gram Stain Result -- 4+ GRAM POSITIVE COCCI RESULT CULTURE IN PROGRESS RESULT Testing performed at [facility], [address] [place] [address] Comment: Testing performed at [facility], [address] [place] [address] Culture, Wound, Smear, w/Anaerobe [[id number]] Collected: 09/03/19 1627 Order Status: Completed Specimen: Tissue from Arm, Left Updated: 09/04/19 5000 Special Requests LT ARM GRAFT SITE Special Requests Testing performed at [facility];[address] [place] [address];[place] [address] Gram Stain Result WBC'S SEEN Gram Stain Result GRAM POSITIVE COCCI Gram Stain Result STAIN PERFORMED ON CYTOSPIN Gram Stain Result Testing performed at [facility];[address] [place] [address] RESULT CULTURE IN PROGRESS RESULT Testing performed at [facility], [address] [place] [address] Comment: Testing performed at [facility], [address] [place] [address] All labs were reviewed.Data: Recent Results (from [...] emotional over some bad news Dictation software, [employer], used which may contain error for similar sounding words even af ter review. Personal communication requested for any clarification. Portions of this chart may have been copied from previous notes for continuity of care purp ose Cathie Marroquin MD Infectious Diseases 09/05/2019 Brandin Kennedy MD - 09/05/2019 8:19 AM PDTFormatting of this note might be different from the or iginal. [facility]: Hospitalist Progress Note Pt: Ramona Oconnor AGE/SEX: 39 y.o. female ROOM: 401/401-01 : 1980 PCP: No Physician on file [...] rounding focused on the patient. Dictation software, [employer], used which may contain error [...] unable to calm down and very emotional, optical instrument repairer pepe on MD chinmay notified and 1 mg ativan given IV. Wound vac in place. Chart check complete Azeb Chamorro RN 09/05/19 @6:26 Linden Kincaid MD - 09/04/2019 7:30 PM PDT [facility]: NEPHROLOGY Progress Note Ramona Oconnor 39 y.o. [id number] female No Physician on file Hospital [...] 10/25/15 showed normal sized kidneys. 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 GERD (gastroesophageal reflux disease) Hypercalcemia 09/07/2017 Hyperphosphatemia [...] ; Surgeon: Qasim Pederson MD; Location: [facility] MA[facility] OR AV FISTULA REPAIR Left 09/03/2019 Procedure: Resection of left arm AV graft with wound vac placement; Surgeon: Lexi Posada; Location: [facility] MAIN OR CATHETER REMOVAL 02/04/2019 Procedure: DIALYSIS CATHETER - REMOVAL; Surgeon: Qasim Pederson MD; Location: [facility] MAIN OR ; Service: Vascular; Laterality: N/A; Infected PD catheter removal DEBRIDEMENT Left 07/08/2019 Procedure: LEFT AXILLA WOUND DEBRIDEMENT, WASHOUT AND POSSIBLE WOUND VAC PLACEMENT; Surge on: Qasim Pederson MD; Location: [facility] MAIN OR OTHER SURGICAL HISTORY Left 03/11/2019 AV FISTULA PLACEMENT - Procedure: AV FISTULA; Surgeon: Qasim Pederson MD; Location: [facility]; Service: Vascular; Laterality: Left; OTHER SURGICAL HISTORY HARDWARE PRESENT OTHER SURGICAL HISTORY Right 01/2019 chest wall OTHER SURGICAL HISTORY Left 05/06/2019 AV GRAFT CREATION - Procedure: AV GRAFT CREATION; Surgeon: Qasim Pederson MD; Location: [facility] MAIN OR; Service: Vascular; Laterality: Left; bovine carotid graft OTHER SURGICAL HISTORY Left 05/26/2019 WOUND VAC PLACEMENT/REPLACEMENT - Procedure: WOUND VAC - PLACEMENT - REPLACEMENT; Surgeon : Qasim Pederson MD; Location: [facility] MAIN OR; Service: Vascular; Laterality: Left; PERITONEAL CATHETER PLACEMENT/REMOVAL 10/28/2015 Procedure: LAPAROSCOPIC - PERITONEAL DIALYSIS CATH INSERTION; Surgeon: Mundo Ramos MD; Lo cation: [facility] MAIN OR; Service: Vascular; Laterality: N/A; UPPER GASTROINTESTINAL ENDOSCOPY 09/10/2017 Procedure: ESOPHAGOGASTRODUODENOSCOPY; Surgeon: Beena Peters MD; Location: [facility] ENDOSCOP Y; Service: Gastroenterology; Laterality: N/A; [...] earlier and charting completed later Dictation software, [employer], used which may contain error [...] Yasmeen Clemons RN 09/04/2019 16:47 Adenike Garsia [facility] - 09/04/2019 10:20 AM PDTClinical Pharmacy Note: Vancomycin Day 2 Scr = 5.8 WBC = 13.9 Current regimen Vanco 1500mg (17.2 mg/kg) x1 loading dose (done 09/03), then during last ho ur or upon completion of HD. Patient currently on MWF HD schedule. No HD scheduled for today. INDICATION: AV graft infection Pharmacist: ADENIKE HOWARD RPH Patient is on MWF HD session 10: 20 AM PDTBrandin Cortez MD - 09/04/2019 8:51 AM PDTFormatting of this note might be dif ferent from the original. [facility]: Hospitalist Progress Note Pt: Ramona Oconnor AGE/SEX: 39 y.o. female ROOM: [address] [place] [address] : 1980 PCP: No Physician on file [...] (98.3 F) Oral 57 20 100 % 09/03/191934 122/61 62 28 99 % 09/03/190 120/62 60 16 98 % 10/25/19 1925 115/62 61 16 94 % 09/03/19 [...] rounding focused on the patient. Dictation software, [employer], used which may contain error [...] Awaiting final culture and sensitivities for appropriate inside trucker antibiotic coverage. Please feel free to call with any questions or concerns. Mundo Ramos MD [facility] 09/04/2019 12:57 AM PDTFormatting of this note might be different from the origi nal. Clinical Pharmacy Note: Vancomycin Day 1 Referring Provider: Dr. Marroquin Subjective / Objective Ramona Lien Oconnor 39 y.o. female Height: 157.5 cm Weight: [...] Procedure Component Value Units Date/Time Culture, Blood [[id number]] Collected: 09/03/192015 Order Status: Sent Lab Status: In process Updated: 09/03/192217 Specimen: Blood Culture, Tissue, Smear, with Anaerobes [[id number]] Collected: 09/03/19 172 Order Status: Completed Lab Status: Preliminary result Updated: 09/03/19 224 Specimen: Tissue from Arm, Left Special Requests L ARM Special Requests Testing performed at [facility];[address] [place] [address] Gram Stain Result 3+ WBC'S SEEN Gram Stain Result 4+ GRAM POSITIVE COCCI Gram Stain Result Testing performed at [facility], [address] [place] [address] RESULT PENDING Comment: Testing performed at [facility], [address] [place] [address] Culture, Wound, Smear, w/Anaerobe [[id number]] Collected: 09/03/19 1627 Order Status: Completed Lab Status: Preliminary result Updated: 09/03/19 1834 Specimen: Tissue from Arm, Left Special Requests LT ARM GRAFT SITE Gram Stain Result WBC'S SEEN Gram Stain Result GRAM POSITIVE COCCI Gram Stain Result STAIN PERFORMED ON CYTOSPIN Gram Stain Result Testing performed at [facility];[address] [place] [address] RESULT PENDING Comment: Testing performed at [facility], [address] [place] [address] Labs Component Value Date/Time WBC 13.78 (H) [...] necessary and will adjust dose accordingly. RYAN ANAND [facility], Pharmacist 09/04/2019 0:47 Gwyn Gan [facility] - 09/04/2019 12:45 AM PDTClinical Pharmacy Note: Renal Monitoring Height: 157.5 cm Weight: 87.4 kg Patient is on hemodialysis - Usual schedule: Fri-Fri-Fri Will order the following dosage adjustments: Metoclopramide 5 mg PO Q4H prn Pharmacy will continue to follow and adjust medications as needed. Thank you. Ryan Anand PharmD 09/04/2019 0:44 Neal Panda RN - 09/03/2019 3:00 PM PDTInformed MD Ramos of patient potassium 5.5 and Mag 3.2. Zeynep lucero signed by Neal Dietz RN at 09/03/2019 [...] Testing | 2.3 - 4.8 mg/dL | [facility] | | | | performed at [facility], [address] | | LABORATORY | | | | [address], | | | | | | [place] [address] | | | | + + + + + + + + | Specimen | + + | Blood | + + + + + + + | Performing | Address | City/State/Zipcode | Phone Number | | Organization | | | | + + + + + | [facility] | [address] | [place] [address] | [phone] | + + + + + Magnesium (09/08/2019 4:47 AM PDT) + + + + + + | Component | Value | Ref Range | Performed | Pathologist | | | | | At | Signature | + + + + + + | Magnesium | 2.9 (H)Comment: Testing | 1.7 - 2.4 mg/dL | [facility] | | | | performed at [facility], [address] | | LABORATORY | | | | [address], | | | | | | [place] [address] | | | | + + + + + + + + | Specimen | + + | Blood | + + + + + + + | Performing | Address | City/State/Zipcode | Phone Number | | Organization | | | | + + + + + | [facility] | [address] | [place] [address] | [phone] | + + + + + Basic [...] 4 (L)Comment: GFR <60: | >60 | [facility] [...] | | | | | performed at [facility], [address] | | | | | | [facility], | | | | | | [place] [address] | | | | + + + + + + + + | Specimen | + + | Blood | + + + + + + + | Performing | Address | City/State/Zipcode | Phone Number | | Organization | | | | + + + + + | [facility] | [address] | [place] [address] | [phone] | + + + + + CBC [...] [facility] | | | | performed at [facility], [address] | | LABORATORY | | | | [address], | | | | | | [place] [address] | | | | + + + + + + + + | Specimen | + + | Blood | + + + + + + + | Performing | Address | City/State/Zipcode | Phone Number | | Organization | | | | + + + + + | [facility] | [address] | [place] [address] | [phone] | + + + + + Phosphorus (09/07/2019 4:31 AM PDT) + + + + + + | Component | Value | Ref Range | Performed | Pathologist | | | | | At | Signature | + + + + + + | Phosphorus | 4.1Comment: Testing | 2.3 - 4.8 mg/dL | [facility] | | | | performed at [facility], [address] | | LABORATORY | | | | [address], | | | | | | [place] [address] | | | | + + + + + + + + | Specimen | + + | Blood | + + + + + + + | Performing | Address | City/State/Zipcode | Phone Number | | Organization | | | | + + + + + | [facility] | [address] | [place] [address] | [phone] | + + + + + Magnesium (09/07/2019 4:31 AM PDT) + + + + + + | Component | Value | Ref Range | Performed | Pathologist | | | | | At | Signature | + + + + + + | Magnesium | 2.5 (H)Comment: Testing | 1.7 - 2.4 mg/dL | [facility] | | | | performed at [facility], [address] | | LABORATORY | | | | [address], | | | | | | [place] [address] | | | | + + + + + + + + | Specimen | + + | Blood | + + + + + + + | Performing | Address | City/State/Zipcode | Phone Number | | Organization | | | | + + + + + | [facility] | [address] | [place] [address] | [phone] | + + + + + Basic [...] | | | | | performed at [facility], [address] | | | | | | [address] [facility], | | | | | | [place] [address] | | | | + + + + + + + + | Specimen | + + | Blood | + + + + + + + | Performing | Address | City/State/Zipcode | Phone Number | | Organization | | | | + + + + + | [facility] | [address] | [place] [address] | [phone] | + + + + + CBC [...] [facility] | | | | performed at [facility], [address] | | LABORATORY | | | | [facility], | | | | | | [place] [address] | | | | + + + + + + + + | Specimen | + + | Blood | + + + + + + + | Performing | Address | City/State/Zipcode | Phone Number | | Organization | | | | + + + + + | [facility] | [address] | [place] [address] | [phone] | + + + + + Phosphorus (09/06/2019 5:14 AM PDT) + + + + + + | Component | Value | Ref Range | Performed | Pathologist | | | | | At | Signature | + + + + + + | Phosphorus | 6.3 (H)Comment: Testing | 2.3 - 4.8 mg/dL | [facility] | | | | performed at [facility], [address] | | LABORATORY | | | | [address], | | | | | | [place] [address] | | | | + + + + + + + + | Specimen | + + | Blood | + + + + + + + | Performing | Address | City/State/Zipcode | Phone Number | | Organization | | | | + + + + + | [facility] | [address] | [place] [address] | [phone] | + + + + + Magnesium (09/06/2019 5:14 AM PDT) + + + + + + | Component | Value | Ref Range | Performed | Pathologist | | | | | At | Signature | + + + + + + | Magnesium | 3.2 (H)Comment: Testing | 1.7 - 2.4 mg/dL | [facility] | | | | performed at [facility], [address] | | LABORATORY | | | | [address], | | | | | | [place] [address] | | | | + + + + + + + + | Specimen | + + | Blood | + + + + + + + | Performing | Address | City/State/Zipcode | Phone Number | | Organization | | | | + + + + + | [facility] | [address] | [place] [address] | [phone] | + + + + + Basic [...] | | | | | performed at [facility], [address] | | | | | | [address] [facility], | | | | | | [place] [address] | | | | + + + + + + + + | Specimen | + + | Blood | + + + + + + + | Performing | Address | City/State/Zipcode | Phone Number | | Organization | | | | + + + + + | [facility] | [address] | [place] [address] | [phone] | + + + + + CBC [...] [facility] | | | | performed at [facility], [address] | | LABORATORY | | | | [address], | | | | | | [place] [address] | | | | + + + + + + + + | Specimen | + + | Blood | + + + + + + + | Performing | Address | City/State/Zipcode | Phone Number | | Organization | | | | + + + + + | [facility] | [address] | [place] [address] | [phone] | + + + + + Phosphorus [...] | | | | | [place] [address] | | | | + + + + + + + + | Specimen | + + | Blood | + + + + + + + | Performing | Address | City/State/Zipcode | Phone Number | | Organization | | | | + + + + + | [facility] | [address] | [place] [address] | [phone] | + + + + + Magnesium (09/05/2019 5:26 AM PDT) + + + + + + | Component | Value | Ref Range | Performed | Pathologist | | | | | At | Signature | + + + + + + | Magnesium | 3.0 (H)Comment: Testing | 1.7 - 2.4 mg/dL | [facility] | | | | performed at [facility], [address] | | LABORATORY | | | | [address], | | | | | | [place] [address] | | | | + + + + + + + + | Specimen | + + | Blood | + + + + + + + | Performing | Address | City/State/Zipcode | Phone Number | | Organization | | | | + + + + + | [facility] | [address] | [place] [address] | [phone] | + + + + + Basic [...] 5 (L)Comment: GFR <60: | >60 | [facility] | | | GFR | CHRONIC [...] | | | | | | MDRD [facility] traceable | | | | | | equation.Testing | | | | | | performed at [facility], [address] | | | | | | [facility], | | | | | | [place] [address] | | | | + + + + + + + + | Specimen | + + | Blood | + + + + + + + | Performing | Address | City/State/Zipcode | Phone Number | | Organization | | | | + + + + + | [facility] | [address] | [place] [address] | [phone] | + + + + + CBC [...] [facility] | | | | performed at [facility], [address] | | LABORATORY | | | | [address], | | | | | | [place] [address] | | | | + + + + + + + + | Specimen | + + | Blood | + + + + + + + | Performing | Address | City/State/Zipcode | Phone Number | | Organization | | | | + + + + + | [facility] | [address] | [place] [address] | [phone] | + + + + + ECG [...] | | | | | [place] [address] | | | | + + + + + + + + | Specimen | + + | Blood | + + + + + + + | Performing | Address | City/State/Zipcode | Phone Number | | Organization | | | | + + + + + | [facility] | [address] | [place] [address] | [phone] | + + + + + Magnesium (09/04/2019 4:59 AM PDT) + + + + + + | Component | Value | Ref Range | Performed | Pathologist | | | | | At | Signature | + + + + + + | Magnesium | 2.5 (H)Comment: Testing | 1.7 - 2.4 mg/dL | [facility] | | | | performed at [facility], [address] | | LABORATORY | | | | [address], | | | | | | [place] [address] | | | | + + + + + + + + | Specimen | + + | Blood | + + + + + + + | Performing | Address | City/State/Zipcode | Phone Number | | Organization | | | | + + + + + | [facility] | [address] | [place] [address] | [phone] | + + + + + Basic [...] | | | | | performed at [facility], [address] | | | | | | [address], | | | | | | [place] [address] | | | | + + + + + + + + | Specimen | + + | Blood | + + + + + + + | Performing | Address | City/State/Zipcode | Phone Number | | Organization | | | | + + + + + | [facility] | [address] [facility] | [place] [address] | [phone] | + + + + + CBC [...] [facility] | | | | performed at [facility], [address] | | LABORATORY | | | | [address], | | | | | | [place] [address] | | | | + + + + + + + + | Specimen | + + | Blood | + + + + + + + | Performing | Address | City/State/Zipcode | Phone Number | | Organization | | | | + + + + + | [facility] | [address] | [place] [address] | [phone] | + + + + + Culture, [...] Special | Testing performed at | | [facility] | | | Requests | [facility];[address] | | LABORATORY | | | | [address];[place] [address] | | | | + + + + + + | RESULT | NO GROWTH 6 DAYS | | [facility] | | | | | | LABORATORY | | + + + + + + | RESULT | Testing performed at | | [facility] | | | | [facility], [address] [facility] | | LABORATORY | | | | [address], [place] | | | | | | [address]Detiskr: Testing | | | | | | performed at [facility], [address] | | | | [address], [place] | | | | | | [address] | | | | + + + + + + + + | Specimen | + + | Blood | + + + + + + + | Performing | Address | City/State/Zipcode | Phone Number | | Organization | | | | + + + + + | [facility] | [address] | [place] [address] | [phone] | + + + + + POC ISTAT, CG8, Arterial (09/03/2019 6:17 PM PDT) + + + + + + | Component | Value | Ref Range | Performed | Pathologist | | | | | At | Signature | + + + + + + | pH, | 7.402 | 7.350 - 7.450 | [facility] | | | Arterial, | | | [...] | | POC | performed at [facility];[address] | g/dL | LABORATORY | | | | [address];[place], [place] | | | | | | [address] | | | | + + + + + + + + | Specimen | + + | | + + + + + + + | Performing | Address | City/State/Zipcode | Phone Number | | Organization | | | | + + + + + | [facility] | [address] | [place] [address] | [phone] | + + + + + Culture, [...] LABORATORY | | | | Blvd;[place] [address] | | | | + + + [...] Stain | Testing performed at | | [facility] | | | Result | [facility], [address] [facility] | | LABORATORY | | | | Blvd, [place] | | | | | | [address] | | | | + + + [...] Comment: Testing | | | performed at [facility], | | | [address], | | | [place] [address] | +---+ + + + + + + | Performing | Address | City/State/Zipcode | Phone Number | | Organization | | | | + + + + + | [facility] | [address] | [place] [address] | [phone] | + + + + + POC ISTAT, CG8, Arterial (09/03/2019 4:30 PM PDT) + [...] | | POC | performed at [facility];[address] | g/dL | LABORATORY | | | | [address];[place], [place] | | | | | | [address] | | | | + + + + + + + + | Specimen | + + | | + + + + + + + | Performing | Address | City/State/Zipcode | Phone Number | | Organization | | | | + + + + + | [facility] | [address] | [place] [address] | [phone] | + + + + + Culture, [...] | | LABORATORY | | | | Blvd;[place] [address] | | | | + + + [...] | [facility] | | | Result | [facility];[address] | | LABORATORY | | | | Bl[address];[place] [address] | | | | + + + [...] Comment: Testing | | | performed at [facility], | | | [address], | | | [place] [address] | +---+ + + + + + + | Performing | Address | City/State/Zipcode | Phone Number | | Organization | | | | + + + + + | [facility] | [address] | [place] [address] | [phone] | + + + + + , Serum, Qual (09/03/2019 3:11 PM PDT) + + + + + + | Component | Value | Ref Range | Performed | Pathologist | | | | | At | Signature | + + + + + + | Preg, Serum | NEGATIVEComment: Testing | NEG | [facility] | | | | performed at [facility];[address] | | LABORATORY | | | | [address];[place], [place] | | | | | | [address] | | | | + + + + + + + + | Specimen | + + | Blood | + + + + + + + | Performing | Address | City/State/Zipcode | Phone Number | | Organization | | | | + + + + + | [facility] | [address] | [place] [address] | [phone] | + + + + + ECG [...] (500), | | | | | | senior technical editor Jimi King | | | | [...] Testing | 1.7 - 2.4 mg/dL | [facility] | | | | performed at [facility];[address] | | LABORATORY | | | | [address];[place] | | | | | | [address] | | | | + + + + + + + + | Specimen | + + | Blood | + + + + + + + | Performing | Address | City/State/Zipcode | Phone Number | | Organization | | | | + + + + + | [facility] | [address] | [place] [address] | [phone] | + + + + + Comprehensive [...] | | | | | | [address];[place] | | | | | | [address] | | | | + + + + + + + + | Specimen | + + | Blood | + + + + + + + | Performing | Address | City/State/Zipcode | Phone Number | | Organization | | | | + + + + + | [facility] | [address] | [place] [address] | [phone] | + + + + + CBC [...] | performed at [facility] | | | | | | [facility];[place], [place] | | | | | | [address] | | | | + + + + + + + + | Specimen | + + | Blood | + + + + + + + | Performing | Address | City/State/Zipcode | Phone Number | | Organization | | | | + + + + + | [facility] | [address] | [place] [address] | [phone] | + + + + + documented in this encounter Visit Diagnoses + + | Diagnosis | + + | Infected prosthetic vascular graft, initial encounter (HCC) - Primary | + + | Postoperative infection, unspecified type, initial encounter | + + | AV graft malfunction, initial encounter ([facility]) | + + | Bleeding from dialysis shunt, initial encounter ([facility]) | + + | Abnormal EKG Nonspecific abnormal electrocardiogram (ECG) (EKG) | + + | ESRD on hemodialysis ([facility]) End stage renal disease | + + | Anemia in ESRD (end-stage renal disease) ([facility]) Anemia in chronic kidney disease | + + | Hypertension, unspecified type | + + | Hyperphosphatemia Disorders of phosphorus metabolism | + + documented in this [...] | | + +--------+ + +------+------+ | calcium carbonate (TUMS) | Given | [...] + +------+------+ +---+---+ | | | +---+---+ + +-------+ [...] | epoetin chito-epbx (RETACRIT) | Given | 09/06/20 | 10,000 | | | | 10,000 units/mL injection 10,000 | | 19 5:30 | Units | | | | Units 10,000 Units, Intravenous, | | PM PDT | | | | | ONCE, 09/06/19 at 1630, For | | | | | | | 1 dose, Keep in refrigerator. Do | | | | | | | not shake., ESRD-related (i.e. | | | | | | | dialysis) indication? Yes, | | | | | | | [...] fentaNYL (PF) injection 25-50 | Given | 09/03/20 | 50 mcg | | | | mcg 25-50 mcg, Intravenous, | | 19 7:15 | | | | | EVERY 5 MIN PRN, Pain, Initial | | PM PDT | | | | | postop medication for URGENT PAIN | | | | | | | OR ESCALATING PAIN, Starting Fri | | | | | | | 09/03/19 at 1754, For 4 doses, | | | | | | | First dose must be lowest dose. | | | | | | | Use Pasero Sedation Scale. | | | | | | | [Opioid tolerant = One week or | | | | | | | longer, acucqn-ksj-dwurk use of | | | | | [...] mcg | | | | | 19 7:05 | | | | | | PM [...] | heparin 1,000 units/mL | Given | 09/06/20 | 3,400 | | | | injection 3,400 Units 3,400 | | 19 7:40 | Units | | | | Units, Intracatheter, ONCE, Mon | | PM PDT | | | | | 09/06/19 at 1630, For 1 dose, | | | | | | | Instill in catheter, after each | | | | | | | dialysis. Dispense quantity | | | | | | | sufficient to fill both lumens of | | | | | | | catheter., Treatment date(s): | | | | | | | 09/06/2019, Dialysis | | | | | | [...] +--------+---+---+ | HYDROmorphone (DILAUDID) | Given | 09/03/20 | 0.5 mg | | | | injection 0.2-0.6 mg 0.2-0.6 mg, | | 19 6:55 | | | | | Intravenous, EVERY 5 MIN PRN, | | PM PDT | | | | | Pain, Starting 09/03/19 at | | | | | | | 1754, First dose must be lowest | | [...] | | | | | | | cdafsc-nlx-zdahw use of at least | | | [...] +-------+ +--------+---+---+ +-------+ +--------+---+---+ | Given | 10/25/20 | 0.5 mg | | | | | 19 6:50 | | | | | | PM [...] | + +---+ + +-------+ +------+---+---+ | LORazepam (ATIVAN) injection 1 | Given | 09/05/20 | 1 mg | | | | mg 1 mg, Intravenous, ONCE, Sun | | 19 12:48 | | | | | 09/05/19 at 0100, For 1 dose | | AM PDT | | | | + +-------+ +------+---+---+ +---+---+ | | | +---+---+ + +-------+ +------+---+---+ | metoclopramide (REGLAN) tablet | Given | 09/06/20 | 5 mg | | | | 5 mg 5 mg, Oral, EVERY 4 HOURS | | 19 10:49 | | | | | PRN, Nausea, Vomiting, Starting | | AM PDT | | | | | 09/03/19 at 2038, Use if | | | | | | | ondansetron and prochlorperazine | | | | | | | ineffective after 30 minutes or | | | | | | | not ordered, | | | | | | + +-------+ +------+---+---+ +-------+ +------+---+---+ | Given | 09/04/20 | 5 mg | | | | | 19 10:26 | | | | | | AM PDT | | | | +-------+ +------+---+---+ +---+---+ | | | +---+---+ + +-------+ +------+---+---+ | morphine injection 8 mg 8 mg, | Given | 09/03/20 | 8 mg | | | | Intravenous, ONCE, Fri09/03/19 | | 19 1:17 | | | | | at 1300, For 1 dose | | PM PDT | | | | + +-------+ +------+---+---+ +---+---+ | | | +---+---+ + +-------+ +------+---+---+ | ondansetron (ZOFRAN) 2 mg/mL | Given | 09/03/20 | 4 mg | | | | injection Starting Fri09/03/19 | | 19 1:23 | | | | | at 1321, For 1 dose, Shaun, | | PM PDT | | | | | Rosmery : marie elise, | | | | | | + [...] | | | | Starting Fri09/03/19 at 1957, | | | | | [...] 4 mg, Intravenous, ONCE | | 19 7:14 | | | | | PRN, Nausea, Starting Fri | | PM PDT | | | | | 09/03/19 at 1754, For 1 dose, | | | | [...] oxyCODONE (ROXICODONE) tablet 5 | Given | 09/03/20 | 5 mg | | | | mg 5 mg, Oral, ONCE PRN, Pain, | | 19 7:09 | | | | | Starting 09/03/19 at 1754, | | PM PDT | | | | | For 1 dose, If able to take oral [...] +---+---+ | | | +---+---+ + +---------+ +-------+--------+---+ | vancomycin in NS (VANCOCIN) | New Bag | 09/03/20 | 1.5 g | 166.7 | | | IVPB 1.5 g 1.5 g, Intravenous, | | 19 1:50 | | mL/hr | | | Administer over 90 Minutes, ONCE, | | PM PDT | | | | | 09/03/19 at 1310, For 1 | | | | | | | dose, Sorry, 1.5gm for pt <90kg, | | | | | | | 2gm for pt>90kg Keep in | | | | | | | refrigerator., Indications: | | | | | | | Post-Operative Wound Infection | | | | | | + +---------+ +-------+--------+---+ + +---+ | | | + +---+ [...] | | + +---+ + +---------+ + +-------+---+ | vancomycin in saline IVPB 1,000 | New Bag | 09/06/20 | 1,000 mg | 250 | | | mg 1,000 mg, Intravenous, | | 19 6:36 | | mL/hr | | | Administer over 60 Minutes, ONCE, | | PM PDT | | | | | 09/06/19 at 1830, For 1 | | | | | | | dose, Administer dose during last | | | | | | | hour or immediately following | | | | | | | each hemodialysis session. Use Rx | | | | | | | button to message pharmacy for | | | | | | | dose. Keep in refrigerator., | | | | | | | Indications: PURULENT SKIN AND | | | | | | | SOFT TISSUE INFECTION, infected | | | | | | | AV fistula | | | | | | + +---------+ + +-------+---+ +---+---+ | | | +---+---+ + +---------+ + +-------+---+ | vancomycin in saline IVPB 1,000 | New Bag | 09/08/20 | 1,000 mg | 250 | | | mg 1,000 mg, Intravenous, | | 19 1:02 | | mL/hr | | | Administer over 60 Minutes, ONCE, | | PM PDT | | | | | 09/08/19 at 1230, For 1 | | | | | | | dose, Administer dose during last | | | | | | | hour or immediately following | | | | | | | each hemodialysis session. Use Rx | | | | | | | button to message pharmacy for | | | | | | | dose. Keep in refrigerator., | | | | | | | Indications: PURULENT SKIN AND | | | | | | | SOFT TISSUE INFECTION, infected | | | | | | | AV fistula | | | | | | + +---------+ + +-------+---+ + +---+ | | | + +---+ | vancomycin per pharmacy | | | PHARMACY CONSULT, Starting Fri | | | 09/03/19 at 1533, Indications: | | | Post-Operative Wound Infection | | + +---+ | | | + +---+ documented in this encounter
--- OUTSIDE RECORDS SUMMARY | ~2020-04-05 | XMS | Encounter Summary ---
Demographics + + + | Address | [address] | | | [place] [address] | + + + | Home Phone [...] [place], [place] | | | | | [address] | | + + + + + | Lydia Palm | ECON | [place], [place] | | | | | [address] | | + + + + + | melinda METZ" | ECON | [place], [place] | | | reba | | [address] | | + + + + + | Jose C Oconnor | ECON | [place] | | | | | [place] | | | | | [address] | | + + + + + Care Team Providers + +------+ + | Care Cardiac Nurse Specialist Name | Role | Phone | + +------+ + | Juan F Whitley DO | PCP | | + +------+ + Encounter Details +--------+ + + + + | Date | Type | Department | Care Team | Description | +--------+ + + + + | 12/07/ | Hospital | [facility] | Ginger Bass | Spontaneous | | 2019 - | Encounter | [facility] | [address] | bacterial | | | | CARE FLOOR [address] | [address] | peritonitis ([facility]); | | 12/10/ | | [address] | [place] [address] | Bandemia; ESRD on | | 2019 | | [place], [place] | [phone] | peritoneal dialysis | | | | [address] | | ([facility]); Anemia in | | | | [phone] | | ESRD (end-stage | | | | | | renal disease) | | | | | | ([facility]); Peritonitis | | | | | | due to infected | | | | | | peritoneal dialysis | | | | | | catheter, subsequent | | | | | | encounter ([facility]) | +--------+ + + + + Social [...] | Blood Pressure | 118/83 | 12/10/2018 12:46 PM | | | | | PST | | + + + + + | Pulse | 78 | 12/10/2018 12:46 PM | | | | | PST | | + + + + + | Temperature | 36.9 C (98.4 F) | 12/10/2018 12:46 PM | | | | | PST | | + + + + + | Respiratory Rate | 16 | 12/10/2018 12:46 PM | | | | | PST | | + + + + + | Oxygen Saturation | - | - | | + + + + + | Inhaled Oxygen | - | - | | | Concentration | | | | + + + + + | Weight | 81.1 kg (178 lb 12.6 | 12/10/2018 12:46 PM | | | | oz) | PST | | + + + + + | Height | 157.5 cm (5' 2") | 12/10/2018 12:46 PM | | | | | PST | | + + + + + | Body Mass Index | 32.7 | 12/10/2018 12:46 PM | | | | | PST | | + + + + + documented in this encounter Discharge Summaries Hilda Edwards DO - 12/10/2018 7:52 AM PSTFormatting of this note might be different fr om the original. Discharge Summaries by Hilda Edwards DO at 12/10/18 0752 Author: Hilda Edwards DO Service: Hospitalist Author Type: Physician Filed: 12/10/18 1218 Date of Service: 12/10/18 0752 Status: Signed Finance Business Partner: Hilda Edwards DO (Physician) Patient: Ramona Oconnor : 1980 Date of Admission: 12/07/2018 Date of Discharge: 12/10/2018 Treatment Team: Consulting Physician: Santos Chi MD Consulting Physician: Lois Richmond MD Admitting [...] Information: [place]: [place] [address] [facility] [address] Santos Chi MD [address] [address] Medication List START taking these medications cefdinir [...] Refills: 0 Commonly known as: KlonoPIN ergocalciferol 33632 units capsule Refills: 0 Commonly known as: [...] disc harge summary. Hilda Edwards 12:18 PM documented in this encounter Medications at [...] Progress Notes Conversion Transaction, Provider Unknown - 12/10/2018 1:19 PM PSTFormatting of this note m ight be different from the original. Nurse Progress Note by Daisha Atwood RN at 12/10/18 2947 Author: Daisha Atwood RN Service: (none) Author Type: Registered Nurse Filed: 12/10/18 2754 Date of Service: 12/10/181318 Status: Signed Finance Business Partner: Daisha Atwood RN (Registered Nurse) Reviewed discharge information with pt. Paper prescriptions given. Iv was discontinued. Pt has no questions or concerns at this time. will drive pt home. onver patric Transaction, Provider Unknown - 12/10/2018 5:15 AM PST Nurse Progress Note by Molina Cobb RN at 12/10/18514 Author: Molina Cobb RN Service: (none) Author Type: Registered Nurse Filed: 12/10/18515 Date of Service: 12/10/18514 Status: Signed Finance Business Partner: Molina Cobb RN (Registered Nurse) Pt a/ox4, VSS. Pt c/o nausea and PRN zofran and phenergan added to MAR. PRN zofran, phenerg an and reglan administered each once. Pt experienced better nausea control throughout night. Peritoneal dialysis currently running. No acute changes, chart review complete. Molina finch RN onver patric Transaction, Provider Unknown - 12/09/2018 5:32 PM PST Nurse Progress Note by Marixa Juarez RN at 12/09/181731 Author: Marixa Juarez RN Service: (none) Author Type: Registered Nurse Filed: 12/09/181732 Date of Service: 12/09/181731 Status: Signed Finance Business Partner: Marixa Juarez RN (Registered Nurse) Reglan started this shift for uncontrolled nausea per MD order. Pt tolerating well and sta acacia improving nausea and minimal to no abdominal pain. Pt will be getting peritoneal dialysis tonight. No other acute changes from previous asses sment. End of shift review complete. Marixa Juarez RN pHilda davenport DO - 12/09/2018 4:20 PM PST Progress Notes by Hilda Edwards DO at 12/09/181619 Author: Hilda Edwards DO Service: Hospitalist Author Type: Physician Filed: 12/09/18 1626 Date of Service: 12/09/181619 Status: Signed Finance Business Partner: Hilda Edwards DO (Physician) [facility]: Hospitalist Progress Note Hospital Day: [...] Code Status: Full Code Hilda Edwards DO 12/09/2018 onversion Transact ion, Provider Unknown - 12/09/2018 4:06 PM PSTFormatting of this note might be different fr om the original. Case Management by Ryley Parker RN at 12/09/18 1606 Author: Ryley Parker RN Service: (none) Author Type: Registered Nurse Filed: 12/09/18 1611 Date of Service: 12/09/18 1606 Status: Signed Finance Business Partner: Ryley Parker RN (Registered Nurse) 12/09/18 1600 Discharge Planning Evaluation Admitting Diagnosis peritonitis Readmission No Living Arrangements Spouse/significant other Support Systems Spouse/significant other;Family members Type of Residence Private residence House type House-1 story Steps to enter 1 Bathrooms on 1st Floor 1-Full Independent with ADL's Yes Independent with Mobility Yes Home Care Services No Caregiver after Discharge No Mental Status Oriented Prior functional status indpendent at baseline. Pt completed PD at home thru [facility] Power of Forms Designer No Anticipated Discharge Plan Post Acute Care Needs None at this time Plan communicated to patient/family Yes Resources Financial concerns No Transportation issues No Patient/Family concerns No Prescription Plan Yes Name of Pharmacy [facility] Previous home health equipment Yes (PD machine) Vascular access device Yes (PD access) Ostomy/Drains/Appliances No Anticipated Disposition Facility Type Home Met with pt and discussed discharge planning, Pt is a 38 y.o., female from home with spouse independent and lives with spouse. [facility] [place] Patient's PCP is:JUAN F WHITLEY Patient's insurance:[employer]/Medicare A/[employer] Coverage concerns: no Medication coverage/concerns: no Rx Bedside Delivery:TBD Community resources utilized / needed: [facility] [phone] can arrange arrange P ICC care if pt needs IV antibiotics Assistance in transportation: spouse to transport Identification of any specific education / training: TBD pending antibiotic needs Barriers to Discharge / Alternative housing needed: none Anticipated DCP: Home RYLEY PARKER RN Lois Romo MD - 12/09/2018 9:58 AM PST Progress Notes by Lois Richmond MD at 12/09/18957 Author: Lois Richmond MD Service: Infectious Disease Author Type: Physician Filed: 12/09/18 6746 Date of Service: 12/09/18957 Status: Signed Finance Business Partner: Lois Richmond MD (Physician) [facility]: Infectious Disease Progress Note Hospital Day: [...] organisms, culture with no growth to date 1/28 blood cultures with no growth to date [...] peritoneal dialysis. She had prior episodes of swapnil picion for peritonitis but negative cultures -Presenting [...] Case discussed with Dr. Edwards and Dr. Chi *Addendum - did not tolerate lunch well Continue cefoxitin IV today Code Status: Full Code LOIS RICHMOND MD 12/09/2018 onversion [place] saction, Provider Unknown - 12/09/2018 6:15 AM PSTFormatting of this note might be differen t from the original. Nurse Progress Note by Molina Cobb RN at 12/09/18614 Author: Molina Cobb RN Service: (none) Author Type: Registered Nurse Filed: 12/09/18616 Date of Service: 12/09/18614 Status: Signed Finance Business Partner: Molina Cobb RN (Registered Nurse) Pt a/ox4, VSS. Pt c/o pain and nausea/vomiting and PRN morphine and zofran administered per orders. Peritoneal dialysis currently running. No acute changes, chart review complete. Gordy Cobb RN onver patric Transaction, Provider Unknown - 12/08/2018 5:14 PM PST Nurse Progress Note by Majo Gonzalez RN at 12/08/181713 Author: Majo Gonzalez RN Service: (none) Author Type: Registered Nurse Filed: 12/08/181713 Date of Service: 12/08/181713 Status: Signed Finance Business Partner: Majo Gonzalez RN (Registered Nurse) Patient is A&OX4, VSS, c/o pain see MAR. Patient is steady on her feet, and ambulating thro ughout hallway with spouse. Patient currently resting in bed comfortably. End of shift revie w complete. MAJO GONZALEZ RN ilda Boucher DO - 12/08/2018 8:13 AM PST Progress Notes by Hilda Edwards DO at 12/08/18812 Author: Hilda Edwards DO Service: Hospitalist Author Type: Physician Filed: 12/08/181950 Date of Service: 12/08/18812 Status: Signed Finance Business Partner: iHlda Edwards DO (Physician) [facility]: Hospitalist Progress Note Hospital Day: [...] patient on IV fluids. Discussed with Dr. Chi. End-stage renal disease on peritoneal dialysis. Nephrology consulted. Will continue Renvela . Pleuritic chest pain. Serial troponins negative. Anxiety. Will continue Ativan prn. Nausea and vomiting. Will continue Zofran prn. Deep vein thrombosis prophylaxis. Will start patient on heparin. Disposition: Inpatient. Given rapid improvement possible dc tomorrow. Code Status: Full Code Hilda Edwards DO 12/08/2018 onversion Transact ion, Provider Unknown - 12/08/2018 6:25 AM PSTFormatting of this note might be different fr om the original. Nurse Progress Note by Zana Zabala RN at 12/08/18624 Author: Zana Zabala RN Service: (none) Author Type: Registered Nurse Filed: 12/08/18624 Date of Service: 12/08/18624 Status: Signed Finance Business Partner: Zana Zabala RN (Registered Nurse) Chart check complete onver patric Transaction, Provider Unknown - 12/07/2018 11:24 PM PST Progress Notes by April Chacon RPH at 12/07/182323 Author: April Chacon RPH Service: Pharmacy Author Type: Pharmacist Filed: 12/07/182323 Date of Service: 01/28/19 2324 Status: Signed Finance Business Partner: April Chacon [facility] (Pharmacist) Renal Dosing Monitoring: Ramona Oconnor 38 y.o. female [...] accordingly. 12/07/2018 11:19 PM Pharmacist: April Chacon docume nted in this encounter Plan of Treatment Not on filedocumented as of this encounter Procedures + +--------+ + + + | Procedure Name | Priori | Date/Time | Associated Diagnosis | Comments | | | ty | | | | + +--------+ + + + | CBC WITH MANUAL | Routin | 12/09/2018 | | Results for this | | DIFFERENTIAL | e | 5:48 AM | | [...] + +--------+ + + + | ECHO COMPLETE | Routin | 12/08/2018 | | Results for this | | | e | 1:51 PM | | procedure are in the | | | | PST | | results section. | + +--------+ + + + | EXTERNAL LAB: CBC | Routin | 12/08/2018 | | Results for this | | | e | 6:03 AM | | procedure are in the | | | | PST | | results section. | + +--------+ + + + | TROPONIN I | Routin | 12/08/2018 | | Results for this | | | e | 6:03 AM | | procedure are in the | | | | PST | | results section. | + +--------+ + + + | PHOSPHORUS | Routin | 12/08/2018 | | Results for this | | | e | 6:03 AM | | procedure are in the | | | | PST | | results section. | + +--------+ + + + | MAGNESIUM | Routin | 12/08/2018 | | Results for this | | | e | 6:03 AM | | procedure are in the | | | | PST | | results section. | + +--------+ + + + | BASIC METABOLIC | Routin | 12/08/2018 | | Results for this | | PANEL | e | 6:03 AM | | procedure are in the | | | | PST | | results section. | + +--------+ + + + | MRSA NAAT | Timed | 12/08/2018 | | Results for this | | | | 1:18 AM | | procedure are in the | | | | PST | | results section. | + +--------+ + + + | CULTURE, BLOOD, 2ND | Timed | 12/07/2018 | | Results for this | | SPECIMEN (NON-ORD) | | 11:53 PM | | procedure are in the | | | | PST | | results section. | + +--------+ + + + | TROPONIN I | Routin | 12/07/2018 | | Results for this | | | e | 11:53 PM | | procedure are in the | | | | PST | | results section. | + +--------+ + + + | CELL COUNT, BODY | STAT | 12/07/2018 | | Results for this | | FLUID | | 8:00 PM | | procedure are in the | | | | PST | | results section. | + +--------+ + + + | CULTURE, BODY FLUID, | STAT | 12/07/2018 | | Results for this | | STERILE, SMEAR, | | 4:59 PM | | procedure are in the | | WITH ANAEROBES | | PST | | results section. | + +--------+ + + + | CT ABDOMEN PELVIS WO | Routin | 12/07/2018 | | Results for this | | CONTRAST | e | 4:44 PM | | procedure are in the | | | | PST | | results section. | + +--------+ + + + | XR CHEST 2 VIEWS | Routin | 12/07/2018 | | Results for this | | | e | 4:28 PM | | procedure are in the | | | | PST | | results section. | + +--------+ + + + | ECG 12 LEAD | Routin | 12/07/2018 | | Results for this | | | e | 3:45 PM | | procedure are in the | | | | PST | | results section. | + +--------+ + + + | HISTORICAL LAB PANEL | Routin | 12/07/2018 | | Results for this | | RESULT | e | 3:30 PM | | procedure are in the | | | | PST | | results section. | + +--------+ + + + | TROPONIN I | Routin | 12/07/2018 | | Results for this | | | e | 3:30 PM | | procedure are in the | | | | PST | | results section. | + +--------+ + + + | D-DIMER | Routin | 12/07/2018 | | Results for this | | | e | 3:30 PM | | procedure are in the | | | | PST | | results section. | + +--------+ + + + | C-REACTIVE PROTEIN | Routin | 12/07/2018 | | Results for this | | | e | 3:30 PM | | procedure are in the | | | | PST | | results section. | + +--------+ + + + | PHOSPHORUS | Routin | 12/07/2018 | | Results for this | | | e | 3:30 PM | | procedure are in the | | | | PST | | results section. | + +--------+ + + + | B TYPE NATRIURETIC | Routin | 12/07/2018 | | Results for this | | PEPTIDE | e | 3:30 PM | | procedure are in the | | | | PST | | results section. | + +--------+ + + + | MAGNESIUM | Routin | 12/07/2018 | | Results for this | | | e | 3:30 PM | | procedure are in the | | | | PST | | results section. | + +--------+ + + + | LIPASE | Routin | 12/07/2018 | | Results for this | | | e | 3:30 PM | | procedure are in the | | | | PST | | results section. | + +--------+ + + + documented in this encounter Results CBC with Manual Differential (12/09/2018 5:48 AM PST) + + + + + + | Component | Value | Ref Range | Performed | Pathologist | | | | | At | Signature | + + + + + + | WBC | 11.41 (H) | 3.80 - 11.00 | EXTERNAL | | | | | K/uL | LAB | | + + + + + + | Red Blood | 3.48 (L) | 3.70 - 5.10 | EXTERNAL | | | Cells | | M/uL | LAB | | | Counted | | | | | + + + + + + | Hemoglobin | 10.2 (L) | 11.3 - 15.5 | EXTERNAL | | | | | g/dL | LAB | | + + + + + + | Hematocrit, | 30.3 (L) | 34.0 - 46.0 % | EXTERNAL | | | POC | | | LAB | | + + + + + + | MCV | 87.1 | 80.0 - 100.0 fl | EXTERNAL [...] + + + + | RDW-CV | 43.8 | 37 - 53 fl | EXTERNAL [...] + + + + | Absolute | 8.67 (H) | 1.90 - 7.40 | EXTERNAL | | | Neutrophils | | K/uL | LAB | | + + + + + + | Absolute | 2.05 | 1.00 - 3.90 | EXTERNAL | | | Lymphocytes | | K/uL | LAB | | + + + + + + | Absolute | 0.46 | 0.00 - 0.80 | EXTERNAL | | | Monocytes | | K/uL | LAB | | + + + + + + | Absolute | 0.23 | 0.00 - 0.50 | EXTERNAL | | | Eosinophils | | K/uL | LAB | | + + + + + + | RBC | 1+Comment: HYPONORMAL | | EXTERNAL | | | Morphology | PLT MORPHTesting | | LAB | | | | performed at [facility], [address] | | | | | [address], | | | | | | [place] [address] | | | | | | | [...] + +---------+ + + Basic Metabolic Panel (12/09/2018 5:48 AM PST) + + + + + [...] + + + + | Creatinine | 13.6 (H) | 0.50 - 1.00 | EXTERNAL [...] | | | | | performed at [facility], [address] | | [address] | | [address], | | | | | | [place] [address] | | | | + + + + + + + + | Specimen | + + | Blood specimen | | (specimen) | + + + +---------+ + + | Performing | Address | City/State/Zipcode | Phone Number | | Organization | | | | + +---------+ + + | EXTERNAL LAB | | | | + +---------+ + + ECHO Complete (12/08/2018 1:51 PM PST) + + | Specimen | + + | | + + + + + | Impressions | Performed At | + + + | 1. Overall left ventricular systolic function is normal with, an EF | | | between 60 - 65 %. 2. There is mild concentric left ventricular | | | hypertrophy. 3. No regional wall [...] RAMONA OCONNOR Date of : 1980 | | | Performing Physician: Imtiaz Mari MD | | | | | | INDICATIONS pleuritic [...] color flow Doppler was perfomed. Study: This was | | | a technically difficult study with suboptimal views. Left Ventricle: | | | Overall left ventricular systolic function is normal with, an EF | | | between 60 - 65 %. Left Ventricle: The left ventricle cavity size is | | | normal. Left Ventricle: There is mild concentric left ventricular | | | hypertrophy. Left Ventricle: No obvious regional wall motion | | | abnormalities. Left Ventricle: The diastolic filling pattern is | | | normal for the age of the patient. [...] Valve: There is no evidence of aortic stenosis. | | | Mitral Valve: The mitral valve is normal. Mitral Valve: There is | | | trace mitral regurgitation. Tricuspid Valve: Trace tricuspid | | | regurgitation present. Tricuspid Valve: The poor TR signal prevents | | | accurate estimation of pulmonary pressures. Pulmonic Valve: The | | | pulmonic valve was not well visualized. Pulmonic Valve: Trace | | | pulmonic regurgitation. Pericardium: There is no pericardial | | | effusion. Pericardium: No pleural effusion seen. IVC/Hepatic Veins: | | | The IVC is normal size (1.5-2.5cm) and collapses >50% with sniff, | | | consistent with central venous pressures of 3 mmHg. Aorta: The aortic | | | root and ascending aorta are normal in size. Mass: No mass | | | visualized Thrombus: No clot visualized MEASUREMENTS | | | RA Area: 15.87 cm2 Ao asc: 3.12 cm Ao sinus: | | | 3.47 cm IVC: 1.73 cm EDV(Teich): 55.32 ml IVSd: 1.25 cm | | | LVIDd: 3.62 cm LVPWd: 0.99 cm LVOT Diam: 1.99 cm %FS: | | | 42.33 % EF(Teich): 74.27 % ESV(Teich): 14.23 ml IVSs: 1.65 | | | cm LVIDs: 2.08 cm LVPWs: 1.40 cm SV(Teich): 41.09 ml | | | RVIDd: 3.68 cm LVEF MOD A2C: 66.22 % SV MOD A2C: 42.83 ml | | | LVEF MOD A4C: 65.35 % SV MOD A4C: 51.30 ml EF Biplane: | | | 65.41 % LVEDV MOD BP: 71.59 ml LVESV MOD BP: 24.76 ml LVEDV | | | MOD A2C: 64.68 ml LVLd A2C: 7.87 cm LVEDV MOD A4C: 78.50 ml | | | LVLd A4C: 8.00 cm LVESV MOD A2C: 21.84 ml LVLs A2C: 5.96 | | | cm LVESV MOD A4C: 27.20 ml LVLs A4C: 5.53 cm LAESV(A-L): | | | 47.06 ml LAESV Index (A-L): 26.00 ml/m2 LAAs A2C: 16.18 cm2 | | | LAESV A-L A2C: 41.14 ml LALs A2C: 5.40 cm LAAs A4C: 18.51 | | | cm2 LAESV A-L A4C: 51.64 ml LALs A4C: 5.63 cm TAPSE: 1.80 | | | cm AV maxP.66 mmHg AV meanP.54 mmHg AV Vmax: 1.38 | | | m/s AV Vmean: 1.00 m/s AV VTI: 26.68 cm QUANG Vmax: 2.35 cm2 | | | QUANG (VTI): 2.52 cm2 AVAI Vmax: 0.00 cm2/m2 AVAI (VTI): | | | 0.00 cm2/m2 LVOT maxP.36 mmHg LVOT meanP.11 mmHg LVSI | | | Dopp: 37.20 ml/m2 LVSV Dopp: 67.33 ml LVOT Vmax: 1.04 m/s | | | LVOT Vmean: 0.67 m/s LVOT VTI: 21.59 cm MV A Kilo: 1.25 m/s | | | MV DecT: 340.74 ms MV E Kilo: 0.78 m/s MV E/A Ratio: 0.62 | | | Septal e': 0.05 m/s Septal E/e': 15.43 Lateral e': 0.07 | | | m/s Lateral E/e': 10.76 HR: 85.10 BPM PV maxP.84 mmHg | | | PV meanP.23 mmHg PV Vmax: 0.98 m/s PV Vmean: 0.72 m/s | | | PV VTI: 19.85 cm RV S': 0.11 m/s Repairer Maintenance Building: MW | | | Authenticated by: Imtiaz Mari MD Report Date/Time: 12-08-2018 | | | 17:48:59 | | + + + + + | Procedure Note | + + | Endy, Rad Conversion - 06/22/2019 11:30 PM PDT Patient Name: Shlomo OCONNOR of | | : 1980 Performing Physician: Imtiaz Mari | | MD INDICATIONS p | | leuritic chest pain CONCLUSIONS 1. Overall left ventricular systolic function | [...] of pulmonary pressures.9. There is no pericardial effusion. | | FINDINGS--------ECG rhythm: Sinus rhythm.Study: A 2-dimensional transthoracic | | echocardiogram with m-mode, spectral and color flow Doppler was perfomed.Study: This was | | a technically difficult study with suboptimal views.Left Ventricle: Overall left | | ventricular systolic function is normal with, an EF between 60 - 65 %.Left Ventricle: | | The left ventricle cavity size is normal.Left Ventricle: There is mild concentric left | | ventricular hypertrophy.Left Ventricle: No obvious regional wall motion | | abnormalities.Left Ventricle: The diastolic filling pattern is normal for the age of the | | patient.Right Ventricle: The right ventricle is normal in size and function.Left | | Atrium: The left atrial size is normal.Aortic Valve: The aortic valve was not well | | visualized.Aortic Valve: There is no evidence of aortic regurgitation.Aortic Valve: | | There is no evidence of aortic stenosis.Mitral Valve: The mitral valve is normal.Mitral | | Valve: There is trace mitral regurgitation.Tricuspid Valve: Trace tricuspid | | regurgitation present.Tricuspid Valve: The poor TR signal prevents accurate estimation | | of pulmonary pressures.Pulmonic Valve: The pulmonic valve was not well | | visualized.Pulmonic Valve: Trace pulmonic regurgitation.Pericardium: There is no | | pericardial effusion.Pericardium: No pleural effusion seen.IVC/Hepatic Veins: The IVC is | | normal size (1.5-2.5cm) and collapses >50% with sniff, consistent with central venous | | pressures of 3 mmHg.Aorta: The aortic root and ascending aorta are normal in size.Mass: | | No mass visualizedThrombus: No clot visualized MEASUREMENTS RA Area: 15.87 | | cm2Ao asc: 3.12 cmAo sinus: 3.47 cmIVC: 1.73 [...] mlLAESV Index (A-L): 26.00 ml/m2LAAs A2C: 16.18 [id number] | | A-L A2C: 41.14 mlLALs A2C: 5.40 cmLAAs A4C: 18.51 to3ITNUA A-L A4C: 51.64 | | mlLALs A4C: 5.63 cmTAPSE: 1.80 cmAV maxP.66 mmHgAV meanP.54 mmHgAV Vmax: | | 1.38 m/Monica Vmean: 1.00 m/Monica VTI: 26.68 cmAVA Vmax: 2.35 cm2AVA (VTI): 2.52 | | [id number] Vmax: 0.00 cm2/m2AVAI (VTI): 0.00 cm2/m2LVOT maxP.36 mmHgLVOT meanPG: | | 2.11 mmHgLVSI Dopp: 37.20 ml/m2LVSV Dopp: 67.33 mlLVOT Vmax: 1.04 m/sLVOT Vmean: | | 0.67 m/sLVOT VTI: 21.59 cmMV A Kilo: 1.25 m/sMV DecT: 340.74 msMV E Kilo: 0.78 | | m/sMV E/A Ratio: 0.62Septal e': 0.05 m/sSeptal E/e': 15.43Lateral e': 0.07 | | m/sLateral E/e': 10.76HR: 85.10 BPMPV maxP.84 mmHgPV meanP.23 mmHgPV | | Vmax: 0.98 m/sPV Vmean: 0.72 m/sPV VTI: 19.85 cmRV S': 0.11 m/s Repairer Maintenance Building: | | MWAuthenticated by: Imtiaz Mari MDReport Date/Time: 12-08-2018 17:48:59 IMPRESSION: 1. | | Overall left ventricular systolic function [...] |RV S': 0.11 m/s | | | |Repairer Maintenance Building: MW | |Authenticated by: Imtiaz Mari MD [...] is no pericardial effusion. | + + Troponin I (12/08/2018 6:03 AM PST) + + + + + + | Component | Value | Ref Range | Performed | Pathologist | | | | | At | Signature | + + + + + + | Troponin I, | 0.026Comment: 0.04 | 0.00 - 0.04 | EXTERNAL [...] | | | | | | at [facility];[address] [place] [address] | | | | | | [facility];[place] [address] | | | | + + + [...] + +---------+ + + External Lab: CBC (12/08/2018 6:03 AM PST) + + + + + + | Component | Value | Ref Range | Performed | Pathologist | | | | | At | Signature | + + + + + + | WBC | 18.78 (H) | 3.80 - 11.00 | EXTERNAL | | | | | K/uL | LAB | | + + + + + + | Red Blood | 3.76 | 3.70 - 5.10 | EXTERNAL | | | Cells | | M/uL | LAB | | | Counted | | | | | + + + + + + | Hemoglobin | 10.7 (L) | 11.3 - 15.5 | EXTERNAL | | | | | g/dL | LAB | | + + + + + + | Hematocrit, | 32.9 (L) | 34.0 - 46.0 % | EXTERNAL | | | POC | | | LAB | | + + + + + + | MCV | 87.4 | 80.0 - 100.0 fl | EXTERNAL [...] + + + + | RDW-CV | 44.6 | 37 - 53 fl | EXTERNAL | | | | | | LAB | | + + + + + + | Platelet | 376 | 150 - 400 K/uL | EXTERNAL [...] + + + | % Segmented | 84.88 | % | EXTERNAL | | | | | | LAB | | | Neutrophils | | | | | + + + + + + | % | 10.02 | % | EXTERNAL | | | Lymphocytes | | | LAB | | + + + + + + | % Monocytes | 4.59 | % | EXTERNAL | | | | | | LAB | | + + + + + + | % | 0.13 | % | EXTERNAL | | | Eosinophils | | | LAB | | + + + + + + | % Basophils | 0.38 | % | EXTERNAL | | | | | | LAB | | + + + + + + | Absolute | 15.94 (H) | 1.90 - 7.40 | EXTERNAL | | | Segmented | | K/uL | LAB | | | Neutrophils | | | | | + + + + + + | Absolute | 1.88 | 1.00 - 3.90 | EXTERNAL | | | Lymphocytes | | K/uL | LAB | | + + + + + + | Absolute | 0.86 (H) | 0.00 - 0.80 | EXTERNAL [...] | | | Basophils | performed at [facility], [address] | K/uL | LAB | | | | [address], | | | | | | [place] [address] | | | | + + + + + + + + | Specimen | + + | Blood specimen | | (specimen) | + + + +---------+ + + | Performing | Address | City/State/Zipcode | Phone Number | | Organization | | | | + +---------+ + + | EXTERNAL LAB | | | | + +---------+ + + Phosphorus (12/08/2018 6:03 AM PST) + + + + + + | Component | Value | Ref Range | Performed | Pathologist | | | | | At | Signature | + + + + + + | PHOSPHORUS | 6.1 (H)Comment: Testing | 2.3 - 4.8 mg/dL | EXTERNAL | | | | performed at [facility], [address] | | LAB | | | | [address], | | | | | | [place] [address] | | | | + + + + + + + + | Specimen | + + | Blood specimen | | (specimen) | + + + +---------+ + + | Performing | Address | City/State/Zipcode | Phone Number | | Organization | | | | + +---------+ + + | EXTERNAL LAB | | | | + +---------+ + + Magnesium (12/08/2018 6:03 AM PST) + + + + + + | Component | Value | Ref Range | Performed | Pathologist | | | | | At | Signature | + + + + + + | Magnesium | 3.1 (H)Comment: Testing | 1.7 - 2.4 mg/dL | EXTERNAL | | | | performed at [facility], [address] | | LAB | | | | [address], | | | | | | [place] [address] | | | | + + + [...] + +---------+ + + Basic Metabolic Panel (12/08/2018 6:03 AM PST) + + + + + + | Component | Value | Ref Range | Performed | Pathologist | | | | | At | Signature | + + + + + + | Na | 138 | 135 - 145 | EXTERNAL | | | | | mmol/L | LAB | | + + + + + + | K | 3.1 (L) | 3.5 - 4.9 | EXTERNAL [...] + + + + | Glucose, | 113 (H) | 65 - 99 mg/dL | EXTERNAL | | | Fasting | | | LAB | | + + + + + + | BUN | 35 (H) | 8 - 25 mg/dL | EXTERNAL | | | | | | LAB | | + + + + + + | Creatinine | 13.4 (H) | 0.50 - 1.00 | EXTERNAL | | | | | mg/dL | LAB | | + + + + + + | BUN/Creatin | 3 | | EXTERNAL | | | ine Ratio | | | LAB | | + + + + + + | Calcium | 8.1 (L) | 8.5 - 10.5 | EXTERNAL [...] Center, | | | | | | [place] [address] | | | | + + + + + + + + | Specimen | + + | Blood specimen | | (specimen) | + + + +---------+ + + | Performing | Address | City/State/Zipcode | Phone Number | | Organization | | | | + +---------+ + + | EXTERNAL LAB | | | | + +---------+ + + MITCH PERLA (12/08/2018 1:18 AM PST) + + | Specimen | + + | | + + + + + | Narrative | Performed At | + + + | SOURCE NARES(NOSE) MRSA | EXTERNAL LAB | | PCR NEGATIVE Testing | | | performed at [facility];[address] [place] [address];[place] [address] | | + + + + +---------+ + + | Performing | Address | City/State/Zipcode | Phone Number | | Organization | | | | + +---------+ + + | EXTERNAL LAB | | | | + +---------+ + + Culture, Blood, 2nd Specimen (12/07/2018 11:53 PM PST) + + | Specimen | [...] | + +---------+ + + Troponin I (12/07/2018 11:53 PM PST) + + + + + + | Component | Value | Ref Range | Performed | Pathologist | | | | | At | Signature | + + + + + + | Troponin I, | 0.026Comment: 0.04 | 0.00 - 0.04 | EXTERNAL [...] | | | | | | at [facility];[address];[place] [address] | | | | + + + [...] +---------+ + + Cell Count, Body Fluid (12/07/2018 8:00 PM PST) + + | Specimen | + + | | + + + + + | Narrative | Performed At | + + + | FLUID TYPE PERITONEAL FLUID | EXTERNAL LAB | | COLOR COLORLESS | | | APPEARANCE SLIGHTLY HAZY RBC'S | | | [address] TOTAL | | | NUCLEATED CELLS 151 NEUTROPHILS | | | 69 LYMPHOCYTES | | | 5 MONOCYTES/MACROPHAGES | | | 26 CELLS COUNTED | | | 100 Testing performed at [facility];[address] [place] [address];[place] | | | [address] | | + + + + +---------+ + + | Performing | Address | City/State/Zipcode | Phone Number | | Organization | | | | + +---------+ + + | EXTERNAL LAB | | | | + +---------+ + + Culture, Body Fluid, Sterile, Smear, with Anaerobes (12/07/2018 4:59 PM PST) + + | Specimen | + + | Body fluid sample | | (specimen) | + + + + + | Narrative | Performed At | + + + | Specimen Description PERITONEAL FLUID GRAM | EXTERNAL LAB | | STAIN NO ORGANISMS SEEN CULTURE | | | NO GROWTH 4 DAYS | | + + + + +---------+ + + | Performing | Address | City/State/Zipcode | Phone Number | | Organization | | | | + +---------+ + + | EXTERNAL LAB | | | | + +---------+ + + CT Abdomen Pelvis wo Contrast (12/07/2018 4:44 PM PST) + + | Specimen | + + | | + + + + + | Impressions | Performed At | + + + | 1. The intrinsically complex and/or dense 4.5 cm mass arising from | | | the right ovary or adnexa is stable but could be a source for | | | ongoing symptoms 2. Stable renal [...] AND PELVIS WITHOUT CONTRAST CLINICAL INFORMATION: | | | Abdominal pain. COMPARISON: CT ABDOMEN PELVIS WO CONTRAST | | | (06/05/2018); US PELVIS WITH ENDOVAGINAL [...] Abdominal aorta normal in caliber. No aneurysm. | | | Veins not assessed without contrast. Lymph Nodes: No adenopathy. | | | Peritoneum and Retroperitoneum: No ascites or free air. No significant | | | retroperitoneal abnormality. PELVIS Genitourinary: A complex mass | | | with some Dense features in the right adnexa and/or comprising the | | | right ovary. About 4.5 cm in size. Stable when compared to the | | | prior examination from May of last year Urinary bladder is not | | | distended The pelvic catheter is intact, without evidence of | | | inflammation or fluid collection nearby BODY WALL Soft Tissues: No | | | bowel or inflamed fat containing hernia, mass or hemorrhage. Bones: | | | No acute fracture or vertebral end plate destruction. No lytic or | | | blastic lesion. | | + + + + + | Procedure Note | + + | Endy, Rad Conversion - 06/22/2019 11:[address] ABDOMEN AND PELVIS WITHOUT CONTRAST | [...] Date/Time: 12/07/2018 4:56 PM | + + XR Chest 2 Vws (12/07/2018 4:28 PM PST) + + | Specimen | + + | | + + + + + | Impressions | Performed At | + + + | Negative chest. Signed by: Zev Conner Date/Time: | | | 12/07/2018 4:36 PM | | + + + + + + | Narrative | Performed At | + + + | CHEST TWO VIEWS CLINICAL INFORMATION: Chest pain. COMPARISON: XR | | | CHEST 2 VIEW (06/05/2018); END ESOPHOGOGASTRODUODENOSCOPY IMAGING | | | (09/10/2017); XR ABDOMEN ACUTE SERIES (06/04/2017); FINDINGS: Heart, | | | lungs and vessels normal. No pneumothorax, pleural effusion or | | | adenopathy. No significant bone abnormality. | | + + + + + | Procedure Note | + + | Endy, Rad Conversion - 06/22/2019 11:30 PM PDT CHEST TWO VIEWS | | CLINICAL INFORMATION: [...] Date/Time: 12/07/2018 4:36 PM | + + ECG 12 lead (12/07/2018 3:45 PM PST) + + + + + + | Component | Value | Ref Range | Performed | Pathologist | | | | | At | Signature | + + + + + + | DIAGNOSIS: | Sinus tachycardiaLeft | | EXTERNAL | | | | posterior fascicular | | LAB | | | | blockNonspecific ST and | | | | | | T wave | | | | | | abnormalityAbnormal | | | | | | ECGWhen compared with | | | | | | ECG of 05-JUN-2018 | | | | | | 01:17,Vent. rate has | | | | | | increased BY 55 BPMQRS | | | | | | axis Shifted rightT | | | | | | wave inversion no longer | | | | | | evident in Anterior | | | | | | leadsThis [...] (500), | | | | | | book editor Rashel Polanco | | | | | | Rogelio (123) on 12/08/2018 | | | | | | 2:29:38 AM | | | | + + + + + + + + | Specimen | + + | | + + + + + | Narrative | Performed At | + + + | Historically converted procedure from [facility] Epic environment | EXTERNAL LAB | + + + + +---------+ + + | Performing | Address | City/State/Zipcode | Phone Number | | Organization | | | | + +---------+ + + | EXTERNAL LAB | | | | + +---------+ + + HISTORICAL LAB PANEL RESULT (12/07/2018 3:30 PM PST) + + + + + -+ | Component | Value | Ref Range | Performed | Pathologist | | | | | At | Signature | + + + + + -+ | WBC | 26.34 (H) | 3.80 - 11.00 | EXTERNAL | | | | | K/uL | LAB | | + + + + + -+ | Red Blood | 4.73 | 3.70 - 5.10 | EXTERNAL | | | Cells | | M/uL | LAB | | | Counted | | | | | + + + + + -+ | Hemoglobin | 13.6 | 11.3 - 15.5 | EXTERNAL | | | | | g/dL | LAB | | + + + + + -+ | Hematocrit, | 40.9 | 34.0 - 46.0 % | EXTERNAL | | | POC | | | LAB | | + + + + + -+ | MCV | 86.4 | 80.0 - 100.0 fl | EXTERNAL | | | | | | LAB | | + + + + + -+ | MCH | 28.8 | 27.0 - 34.0 pg | EXTERNAL | | | | | | LAB | | + + + + + -+ | MCHC | 33.4 | 32.0 - 35.5 | EXTERNAL | | | | | g/dL | LAB | | + + + + + -+ | RDW-CV | 45.1 | 37 - 53 fl | EXTERNAL | | | | | | LAB | | + + + + + -+ | Platelet | 484 (H) | 150 - 400 K/uL | EXTERNAL | | | Count | | | LAB | | | Plasma | | | | | + + + + + -+ | MPV | 8.0 | fl | EXTERNAL | | | | | | LAB | | + + + + + -+ | Differentia | MANUAL | | EXTERNAL | | | l Type | | | LAB | | + + + + + -+ | Segmented | 78 | % | EXTERNAL | | | Neutrophils | | | LAB | | | Manual | | | | | + + + + + -+ | % Bands | 10 | % | EXTERNAL | | | | | | LAB | | + + + + + -+ | % | 1 | % | EXTERNAL | | | 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 | | | | | + + + + + -+ | Lymphocytes | 9 | % | EXTERNAL | | | Manual | | | LAB | | + + + + + -+ | Monocytes | 2 | % | EXTERNAL | | | Manual | | | LAB | | + + + + + -+ | Absolute | 20.55 (H) | 1.90 - 7.40 | EXTERNAL | | | Neutrophils | | K/uL | LAB | | + + + + + -+ | Bands | 2.63 (H) | 0.00 - 0.20 | EXTERNAL | | | Manual | | K/uL | LAB | | + + + + + -+ | Absolute | 0.26 (H) | K/uL | EXTERNAL | | | 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 | | | | | + + + + + -+ | Absolute | 2.37 | 1.00 - 3.90 | EXTERNAL | | | Lymphocytes | | K/uL | LAB | | + + + + + -+ | Absolute | 0.53 | 0.00 - 0.80 | EXTERNAL | | | Monocytes | | K/uL | LAB | | + + + + + -+ | Platelet | INCREASED | | EXTERNAL | | | Estimate | | | LAB | | + + + + + -+ | RBC | RBC AND PLT MORPHOLOGY | | EXTERNAL | | | Morphology | APPEAR NORMAL | | LAB | | + + + + + -+ | Na | 141 | 135 - 145 | EXTERNAL | | | | | mmol/L | LAB | | + + + + + -+ | K | 3.9 | 3.5 - 4.9 | EXTERNAL | | | | | mmol/L | LAB | | + + + + + -+ | Cl | 96 (L) | 99 - 109 mmol/L | EXTERNAL | | | | | | LAB | | + + + + + -+ | CO2 | 25 | 23 - 32 mmol/L | EXTERNAL | | | | | | LAB | | + + + + + -+ | Anion Gap | 24 (H) | 5 - 20 mmol/L | EXTERNAL | | | | | | LAB | | + + + + + -+ | Glucose, | 131 (H) | 65 - 99 mg/dL | EXTERNAL | | | Fasting | | | LAB | | + + + + + -+ | BUN | 35 (H) | 8 - 25 mg/dL | EXTERNAL | | | | | | LAB | | + + + + + -+ | Creatinine | 13.70 (H) | 0.50 - 1.00 | EXTERNAL | | | | | mg/dL | LAB | | + + + + + -+ | BUN/Creatin | 3 | | EXTERNAL | | | ine Ratio | | | LAB | | + + + + + -+ | Calcium | 9.4 | 8.5 - 10.5 | EXTERNAL | | | | | mg/dL | LAB | | + + + + + -+ | Protein, | 8.7 (H) | 6.3 - 8.2 g/dL | EXTERNAL | | | Total | | | LAB | | + + + + + -+ | Albumin | 4.9 | 3.6 - 5.0 g/dL | EXTERNAL | | | | | | LAB | | + + + + + -+ | Globulin | 3.8 | 1.3 - 4.9 g/dL | EXTERNAL | | | | | | LAB | | + + + + + -+ | A/G Ratio | 1.3 | 1.0 - 2.4 | EXTERNAL | | | | | | LAB | | + + + + + -+ | Bilirubin | 0.2 | 0.1 - 1.5 mg/dL | EXTERNAL | | | Total | | | LAB | | + + + + + -+ | ALP, | 126 (H) | 35 - 115 U/L | EXTERNAL | | | External | | | LAB | | + + + + + -+ | AST | 15 | 10 - 45 U/L | EXTERNAL | | | | | | LAB | | + + + + + -+ | ALT | 11 | 10 - 65 U/L | EXTERNAL [...] + + + + + -+ | CK, Total | 146 | 30 - 240 U/L | EXTERNAL | | | | | | LAB | | + + + + + -+ | INR | 0.9Comment: REFERENCE | | [...] + + + + + -+ | aPTT, | 28 | 23 - 32 seconds | EXTERNAL | | | Patient | | | LAB | | + + + + + -+ | CK-MB | 1.7 | 0.5 - 3.6 ng/mL | EXTERNAL | | | | | | LAB | | + + + + + -+ | CK-MB Index | 1.2Comment: CK INDEX | | EXTERNAL | | | | INTERPRETATION: | | LAB | | | | MMB ng/mL | | | | | | | | | | | |CK INDEX INTERPRETATION: | | | | | | MMB ng/mL | | | | | | | [...] | + +---------+ + + Troponin I (12/07/2018 3:30 PM PST) + + + + + + | Component | Value | Ref Range | Performed | Pathologist | | | | | At | Signature | + + + + + + | Troponin I, | 0.026Comment: Testing | 0.00 - 0.04 | EXTERNAL | | | Qual | performed at [facility];[address] | ng/mL | LAB | | | | [facility];[place] | | | | | | [id number] ON 12/25 | | | | | | AT 1142: PREVIOUSLY | | | | | | REPORTED .026 | | | | | | 0.04 ng/mL or less | | | | | | Negative, repeat | | | | | | testing in four to six | | | | | | hour if clinically | | | | | | indicted 0.05 to 0.77 | | | | | [...] if | | | | | | indicated. 0.78 or | | | | | | greater ng/mL | | | | | | Consistent with | | | | | | myocardial injury. | | | | | | Clinical and laboratory | | | | | | correlation recommended. | | | | | | NOTE NEW REFERENCE | | | | | | RANGE | | | | + + + + + + + + | Specimen | + + | Blood specimen | | (specimen) | + + + +---------+ + + | Performing | Address | City/State/Zipcode | Phone Number | | Organization | | | | + +---------+ + + | EXTERNAL LAB | | | | + +---------+ + + D-Dimer (12/07/2018 3:30 PM PST) + + + + + + | Component | Value | Ref Range | Performed | Pathologist | | | | | At | Signature | + + + + + + | D-DIMER, | 0.34Comment: Testing | 0.19 - 0.50 | EXTERNAL | | | MANUAL | performed at [facility];[address] | mg/L FEU | LAB | | | | [address];[place], [place] | | | | | | [address] | | | | + + + + + + + + | Specimen | + + | Blood specimen | | (specimen) | + + + +---------+ + + | Performing | Address | City/State/Zipcode | Phone Number | | Organization | | | | + +---------+ + + | EXTERNAL LAB | | | | + +---------+ + + C-Reactive Protein (12/07/2018 3:30 PM PST) + + + + + + | Component | Value | Ref Range | Performed | Pathologist | | | | | At | Signature | + + + + + + | CRP | 2.5 (H)Comment: Testing | mg/dL | EXTERNAL | | | | performed at [facility] | | LAB | | | | [address];[place] | | | | | | [address] | | | | + + + + + + + + | Specimen | + + | Blood specimen | | (specimen) | + + + +---------+ + + | Performing | Address | City/State/Zipcode | Phone Number | | Organization | | | | + +---------+ + + | EXTERNAL LAB | | | | + +---------+ + + Phosphorus (12/07/2018 3:30 PM PST) + + + + + + | Component | Value | Ref Range | Performed | Pathologist | | | | | At | Signature | + + + + + + | PHOSPHORUS | 5.7 (H)Comment: Testing | 2.3 - 4.8 mg/dL | EXTERNAL | | | | performed at [facility];[address] | | LAB | | | | [facility];[place], [place] | | | | | | [address] | | | | + + + + + + + + | Specimen | + + | Blood specimen | | (specimen) | + + + +---------+ + + | Performing | Address | City/State/Zipcode | Phone Number | | Organization | | | | + +---------+ + + | EXTERNAL LAB | | | | + +---------+ + + B Type Natriuretic Peptide (12/07/2018 3:30 PM PST) + + + + + + | Component | Value | Ref Range | Performed | Pathologist | | | | | At | Signature | + + + + + + | BNP | 50.36Comment: Testing | 0 - 100 pg/mL | EXTERNAL | | | | performed at [facility];[address] | | LAB | | | | [address] [facility];[place], [place] | | | | | | [address] | | | | + + + + + + + + | Specimen | + + | Blood specimen | | (specimen) | + + + +---------+ + + | Performing | Address | City/State/Zipcode | Phone Number | | Organization | | | | + +---------+ + + | EXTERNAL LAB | | | | + +---------+ + + Magnesium (12/07/2018 3:30 PM PST) + + + + + + | Component | Value | Ref Range | Performed | Pathologist | | | | | At | Signature | + + + + + + | Magnesium | 3.2 (H)Comment: Testing | 1.7 - 2.4 mg/dL | EXTERNAL | | | | performed at [facility];[address] | | LAB | | | | [address];[place], [place] | | | | | | [address] | | | | + + + + + + + + | Specimen | + + | Blood specimen | | (specimen) | + + + +---------+ + + | Performing | Address | City/State/Zipcode | Phone Number | | Organization | | | | + +---------+ + + | EXTERNAL LAB | | | | + +---------+ + + Lipase (12/07/2018 3:30 PM PST) + + + + + + | Component | Value | Ref Range | Performed | Pathologist | | | | | At | Signature | + + + + + + | Lipase | 51Comment: NOTE NEW | 12 - 53 U/L | EXTERNAL | | | | REFERENCE RANGETesting | | LAB | | | | performed at [facility] | | | | | | [address];[place], [place] | | | | | | [address] | | | | + + + [...] + + | Spontaneous bacterial peritonitis (HCC) Spontaneous bacterial peritonitis | + + | Bandemia | + + | ESRD on peritoneal dialysis (HCC) End stage renal disease | + + | Anemia in ESRD (end-stage renal disease) (HCC) Anemia in chronic kidney disease | + + | Peritonitis due to infected peritoneal dialysis catheter, subsequent encounter (HCC) | + + documented in this encounter
--- OUTSIDE RECORDS SUMMARY | ~2020-04-05 | XMS | Encounter Summary ---
Demographics + + + | Address | [address] | | | [place] [address] | + + + | Home Phone | | + + + | Preferred Language | Unknown | + + + | Marital Status | | + + + | Buddhism Affiliation | Unknown | + + + | Race | Unknown | + + + | Ethnic Group | Unknown | + + + Author + + + | Author | [facility] | | | and [place] | + + + | Organization | [facility] | | | and [place] | + + + | Address | Unknown | + + + | Phone | Unavailable | + + + Support + + + + + | Name | Relationship | Address | Phone | + + + + + | Lyubov Smalls | ECON | [place], [place] | | | | | [address] | | + + + + + | Lydia Palm | ECON | [place], [place] | | | | | [address] | | + + + + + | melinda METZ" | ECON | [place], [place] | | | [place] | | [address] | | + + + + + | Jose C Oocnnor | ECON | [place] | | | | | [place] | | | | | [address] | | + + + + + Care Team Providers + +------+ + | Care Revenue Cycle Analyst Name | Role | Phone | [...] | | | | ([facility]) | | | | | | | Procedures | | | | | | | [place] | | | | | | | [...] + + | 01/10/ | Hospital | [facility] | Mundo Ramos MD | | | 2020 | Encounter | [facility] | [address] | | | | | [address] | [place], [place] | | | | | [address] | [address] | | | | | [place], [place] | [phone] | | | | | [address] | | | | | | [phone] | | | +--------+ + + + [...] might be different fr om the original. [facility] AV DIALYSIS SHUNT/FISTULA DISCHARGE INSTRUCTIONS Your physician [...] 24 hours, or as directed by your [facility] provider. Change your dressing if [...] by your healthcare provider Date Last Reviewed: 10/10/201619994470-9911 [employer]. [address] [place] [address], [place] [address]. All righ ts reserved. This information is [...] chances for infection. Controlled body temperature. A ohkav-wkkk-qnbzct temperature during or after surgery pre vents [...] water or with an alcoho l-based hand carpet cleaner before and after caring for you. [...] doesn t go away Date Last Reviewed: 10/10/201619997759-8778 [employer]. [address] [place] [address]. All righ ts reserved. This information is [...] official disposal site. Contact the [employer] at [phone] or your city/[facility] government to find a site. If you cannot return the medicine, flush it down the toilet. Do not use the medicine after the expiration date. [facility] AV DIALYSIS SHUNT/FISTULA DISCHARGE INSTRUCTIONS Your physician [...] information carefully each time. Talk to your cork tile floor layer regarding the use of this medicine in [...] this medicine? Tell your doctor or health landcare facilitator if your pain does not go away, [...] should report to your doctor or health landcare facilitator as soon as p ossible: allergic reactions like skin rash, itching or hives, swelling of the face, lips, or tong ue breathing problems chest pain confusion fast, irregular heartbeat feeling faint or lightheaded, falls trouble passing urine or change in the amount of urine Side effects that usually do not require medical attention (Report these to your doctor or health landcare facilitator if they continue or are bothersome.): constipation dizziness headache nausea stomach pain tiredness vomiting This list may not describe all possible side effects. Call your doctor for medical advice a bout side effects. You may report side effects to FDA at 2-842-MRM-9599. Where should I keep my medicine? Keep [...] | | | | 10:00 AM | ([facility]) | | | | | PST | [...] DAWNA | | | | performed at [facility];[address] | | LABORATORY | | | | [address];[place] | | | | | | [address] | | | | + + + + + + + + | Specimen | + + | Blood | + + + + + + + | Performing | Address | City/State/Zipcode | Phone Number | | Organization | | | | + + + + + | [facility] | [address] | [place] [address] | [phone] | + + + + + Basic [...] | | | | performed at [facility];[address] | | | | | | [address];[place], [place] | | | | | | [address] | | | | + + + + + + + + | Specimen | + + | Blood | + + + + + + + | Performing | Address | City/State/Zipcode | Phone Number | | Organization | | | | + + + + + | [facility] | [address] [facility] | [place] [address] | [phone] | + + + + + documented in this encounter Visit Diagnoses + + | Diagnosis | + + | ESRD on dialysis ([facility]) End stage renal disease | + + documented in this encounter Admitting Diagnoses + + | Diagnosis | + + | ESRD on dialysis ([facility]) End stage renal disease | + + [...] | | | | | | longer, xbfxvu-wjg-uxmfp use of | | | | | [...] | | | | | | | qpdgfx-dmp-kmflg use of at least | | | [...]
--- OUTSIDE RECORDS SUMMARY | ~2020-04-05 | XMS | Encounter Summary ---
Demographics + + + | Address | [address] | | | [place] [address] | + + + | Home Phone [...] [place], [place] | | | | | [address] | | + + + + + | Lydia Palm | ECON | [place], [place] | | | | | [address] | | + + + + + | melinda METZ" | ECON | [place], [place] | | | [place] | | [address] | | + + + + + | Jose C Oconnor | ECON | [place] | | | | | [place] | | | | | [address] | | + + + + + Care Team Providers + +------+ + | Care Reservations Specialist Name | Role | Phone | [...] [place] | | | | | | [address] | | | | | | [phone] | | | +--------+ + + + [...]
--- OUTSIDE RECORDS SUMMARY | ~2020-04-05 | XMS | Encounter Summary ---
Demographics + + + | Address | [address] | | | [place] [address] | + + + | Home Phone | | + + + | Preferred Language | Unknown | + + + | Marital Status | | + + + | Pentecostalism Affiliation | Unknown | + + + [...] [place], [place] | | | | | [address] | | + + + + + | Lydia Palm | ECON | [place], [place] | | | | | [address] | | + + + + + | melinda METZ" | ECON | [place], [place] | | | reba | | [address] | | + + + + + | Jose C Oconnor | ECON | [address] | | | | | [place] | | | | | [address] | | + + + + + Care Team Providers + +------+ + | Care Library Circulation Department Chief Name | Role | Phone | + [...] + + | 07/22/ | Clinical | [facility] | Nidhi Whitaker, | Surgical wound | | 2019 | Support | VASCULAR SURGERY | RN | dehiscence, | | | | [address] | | subsequent encounter | | | | [place] | | (Primary Dx) | | | | [address] | | | | | | [phone] | | | +--------+ + + + [...] this encounter Progress Nidhi Zuniga RN - 07/22/2019 9:00 AM PDTPatient presented to office with her momfor left under arm wound check/ wound vac. Patient is seeing [facility] out patient wound car e 3 times [...] Full report given to Elisha MARTINEZ at [facility], Elisha will update [facility] next Friday regarding patient. Report also given to Dr Pederson. Patient to follow up in [address] [facility] on 08/10/2019. d ocumented in this encounter Plan of Treatment Not on filedocumented as of this encounter Visit Diagnoses + + | Diagnosis | + + | Surgical wound dehiscence, subsequent encounter - Primary | + + documented in this encounter
--- OUTSIDE RECORDS SUMMARY | ~2020-04-05 | XMS | Encounter Summary ---
Demographics + + + | Address | [address] | | | [place] [address] | + + + | Home Phone | | + + + | Preferred Language | Unknown | + + + | Marital Status | | + + + | Evangelical Affiliation | Unknown | + + + | Race | Unknown | + + + | Ethnic Group | Unknown | + + + Author + + + | Author | [facility] | | | and [place] | + + + | Organization | [facility] | | | and [place] | + + + | Address | Unknown | + + + | Phone | Unavailable | + + + Support + + + + + | Name | Relationship | Address | Phone | + + + + + | Lyubov Smalls | ECON | [place], [place] | | | | | [address] | | + + + + + | Lydia Palm | ECON | [place], [place] | | | | | [address] | | + + + + + | melinda METZ" | ECON | [place], [place] | | | [place] | | [address] | | + + + + + | Jose C Oconnor | ECON | [address] | | | | | [place] | | | | | [address] | | + + + + + Care Team Providers + +------+ + | Care Hourly Shift Name | Role | Phone | + [...] GALLARDO | | | | | | ([facility]) | HUGO E | | | | | | Procedures | [place] | | | | | | VAS Lower | [address] | | | | | | Extremity | Phone: | | | | | | Vein Mapping | [phone] | | | | | | Bilat VAS | Fax: | | | | | | Lower | [phone] | | | | | | Extremity | | | | | | | Vein Mapping | | | | | | | Right | | | +--------+--------+ + + + + Encounter Details +--------+ + + + + | Date | Type | Department | Care Team | Description | +--------+ + + + + | 12/23/ | Hospital | [facility] | | ESRD on dialysis | | 2020 | Encounter | VASCULAR SURGERY | | ([facility]) | | | | ULTRASOUND [address] | | | | | | [address] | | | | | | [place] | | | | | | [address] | | | | | | [phone] | | | +--------+ + + + [...] tablet by | 30 | 0 | 03/03/20 | | | HYDROcodone-acetamin | mouth every 4 hours | tablet | | 20 | | | ophen (NORCO) 5-325 | as needed for Pain. | | | | | | mg per tablet | | | | | | + + + +---------+ + + | | Take 1 tablet by | 40 | 0 | 02/06/20 | | | HYDROcodone-acetamin | mouth every [...] mg by mouth | | 0 | //20 | | | (ZOFRAN) 4 mg tablet [...] + +--------+ + + + | VAS LOWER EXTREMITY | Routin | 12/23/2019 | ESRD on dialysis | Results for this | | VEIN MAPPING | e | 4:09 PM | (HCC) | procedure are in the | | BILATERAL | | PST | | results section. | + +--------+ + + + documented in this encounter Results VAS Lower Extremity Vein Mapping Bilat (12/23/2019 [...]
--- OUTSIDE RECORDS SUMMARY | ~2020-04-05 | XMS | Encounter Summary ---
Demographics + + + | Address | [address] | | | [place] [address] | + + + | Home Phone [...] [place], [place] | | | | | [address] | | + + + + + | Lydia Palm | ECON | [place], [place] | | | | | [address] | | + + + + + | melinda METZ" | ECON | [place], [place] | | | [place] | | [address] | | + + + + + | Jose C Oconnor | ECON | [address] | | | | | [place] | | | | | [address] | | + + + + + Care Team Providers + +------+ + | Care Glass Sander Belt Name | Role | Phone | + +------+ + | Juan F Whitley DO | PCP | | + +------+ + Encounter Details +--------+ + + + + | Date | Type | Department | Care Team | Description | +--------+ + + + + | 12/07/ | Hospital | [facility] | Ginger Bass | Spontaneous | | 2019 - | Encounter | [facility] | MD [address] | bacterial | | | | CARE FLOOR [address] | [address] | peritonitis ([facility]); | | 12/10/ | | [address] | [place] [address] | Bandemia; ESRD on | | 2019 | | [place], [place] | [phone] | peritoneal dialysis | | | | [address] | | ([facility]); Anemia in | | | | [phone] | | ESRD (end-stage | | | | | | renal disease) | | | | | | ([facility]); Peritonitis | | | | | | due to infected | | | | | | peritoneal dialysis | | | | | | catheter, subsequent | | | | | | encounter ([facility]) | +--------+ + + + + Social [...] Date of Service: 12/10/18 0752 Status: Signed Parking Patroller: Hilda Edwards DO (Physician) Patient: Ramona Oconnor [...] Information: Follow [place]: [place] [address] [facility] [address] Santos Chi MD [address] [address] Medication List START taking these medications cefdinir [...] Refills: 0 Commonly known as: KlonoPIN ergocalciferol 13631 units capsule Refills: 0 Commonly known as: [...] Note by Daisha Atwood RN at 12/10/18 5339 Author: Daisha Atwood RN Service: (none) Author Type: Registered Nurse Filed: 12/10/18 6214 Date of Service: 12/10/181318 Status: Signed Parking Patroller: Daisha Atwood RN (Registered Nurse) Reviewed discharge [...] 12/10/18515 Date of Service: 12/10/18514 Status: Signed Parking Patroller: Molina Cobb RN (Registered Nurse) Pt a/ox4, [...] 12/09/181732 Date of Service: 12/09/181731 Status: Signed Parking Patroller: Marixa Juarez RN (Registered Nurse) Reglan started [...] 1626 Date of Service: 12/09/181619 Status: Signed Parking Patroller: Hilda Edwards DO (Physician) [facility] Service: Hospitalist Progress Note Hospital Day: [...] Date of Service: 12/09/18 1606 Status: Signed Parking Patroller: Ryley Parker RN (Registered Nurse) 12/09/18 1600 [...] baseline. Pt completed PD at home thru [facility] Power of Carbon Cleaner No Anticipated Discharge Plan Post Acute Care Needs None at this time Plan communicated to patient/family Yes Resources Financial concerns No Transportation issues No Patient/Family concerns No Prescription Plan Yes Name of Pharmacy [facility] Previous home health equipment Yes (PD machine) Vascular access device Yes (PD access) Ostomy/Drains/Appliances No Anticipated Disposition Facility Type Home Met with pt and discussed discharge planning, Pt is a 38 y.o., female from home with spouse independent and lives with spouse. Pt does PD at home monitored [facility] [place]. Patient's PCP is:JUAN F WHITLEY Patient's insurance:[employer]/Medicare A/Nexstim Coverage concerns: no Medication coverage/concerns: no Rx Bedside Delivery:TBD Community resources utilized / needed: [facility] [phone] can arrange arrange P ICC care if [...] Infectious Disease Author Type: Physician Filed: 12/09/18 8757 Date of Service: 12/09/18957 Status: Signed Parking Patroller: Lois Richmond MD (Physician) [facility] Service: Infectious Disease Progress Note Hospital [...] 12/09/18616 Date of Service: 12/09/18614 Status: Signed Parking Patroller: Molina Cobb RN (Registered Nurse) Pt a/ox4, [...] 12/08/181713 Date of Service: 12/08/181713 Status: Signed Parking Patroller: Majo Gonzalez RN (Registered Nurse) Patient is [...] 12/08/181950 Date of Service: 12/08/18812 Status: Signed Parking Patroller: Hilda Edwards DO (Physician) [facility] Service: Hospitalist Progress Note Hospital Day: [...] by Zana Zabala RN at 12/08/18624 Author: aZna Zabala RN Service: (none) Author Type: Registered Nurse Filed: 12/08/18624 Date of Service: 12/08/18624 Status: Signed Parking Patroller: Zana Zabala RN (Registered Nurse) Chart check complete onver patric Transaction, Provider Unknown - 12/07/2018 11:24 PM PST Progress Notes by April Chacon RPH at 12/07/182323 Author: April Chacon RPH Service: Pharmacy Author Type: Pharmacist Filed: 12/07/182323 Date of Service: 01/28/19 2324 Status: Signed Parking Patroller: April Chacon [facility] (Pharmacist) Renal Dosing Monitoring: Ramona Oconnor 38 [...] LAB | | | | performed at [facility], [address] | | | | | | [address], | | | | | | [place] [address] | | | | | | | [...] | | | | | performed at [facility], [address] | | | | | | [address], | | | | | | [place] [address] | | | | + + + [...] VTI: 19.85 cm RV S': 0.11 m/s Racecar Driver: MW | | | Authenticated by: Imtiaz [...] mlLAESV Index (A-L): 26.00 ml/m2LAAs A2C: 16.18 [id number] | | A-L A2C: 41.14 mlLALs A2C: 5.40 cmLAAs A4C: 18.51 fk3AIKIF A-L A4C: 51.64 | | mlLALs A4C: 5.63 cmTAPSE: 1.80 cmAV maxP.66 mmHgAV meanP.54 mmHgAV Vmax: | | 1.38 m/Monica Vmean: 1.00 m/Monica VTI: 26.68 cmAVA Vmax: 2.35 cm2AVA (VTI): 2.52 | | qd7AYHV Vmax: 0.00 cm2/m2AVAI (VTI): 0.00 cm2/m2LVOT maxP.36 [...] m/sPV VTI: 19.85 cmRV S': 0.11 m/s Racecar Driver: | | MWAuthenticated by: Imtiaz Mari MDReport [...] |RV S': 0.11 m/s | | | |Racecar Driver: MW | |Authenticated by: Imtiaz Mari MD [...] | | | | | | at [facility];[address] [place] [address] | | | | | | [facility];[place] [address] | | | | + + + [...] | | | Basophils | performed at [facility], [address] | K/uL | LAB | | | | [address], | | | | | | [place] [address] | | | | + + + [...] EXTERNAL | | | | performed at [facility], [address] | | LAB | | | | [address], | | | | | | [place] [address] | | | | + + + [...] EXTERNAL | | | | performed at [facility], [address] | | LAB | | | | [address], | | | | | | [place] [address] | | | | + + + [...] W | | | | | | [facility], | | | | | | [place] [address] | | | | + + + [...] NEGATIVE Testing | | | performed at [facility];[address] [place] [address];[place] [address] | | + + + + +---------+ [...] | | | | | | at [facility];[address];[place] [address] | | | | + + + [...] APPEARANCE SLIGHTLY HAZY RBC'S | | | 15783 TOTAL | | | NUCLEATED CELLS 151 NEUTROPHILS | | | 69 LYMPHOCYTES | | | 5 MONOCYTES/MACROPHAGES | | | 26 CELLS COUNTED | | | 100 Testing performed at [facility];[address] [place] [address];[place] | | | [address] | | + + + + +---------+ [...] (500), | | | | | | restaurant expeditor Rashel Polanco | | | | | | Rogelio (123) on 12/08/2018 | | | | | | 2:29:38 AM | | | | + + + + + + + + | Specimen | + + | | + + + + + | Narrative | Performed At | + + + | Historically converted procedure from [facility] Epic environment | EXTERNAL LAB | + [...] | | | Qual | performed at [facility];888 | ng/mL | LAB | | | | [facility];[place] | | | | | | [id number] ON 12/25 | | | | | [...] | | | MANUAL | performed at [facility];888 | mg/L FEU | LAB | | | | [address];[place], [place] | | | | | | [address] | | | | + + + [...] EXTERNAL | | | | performed at [facility] | | LAB | | | | [address];[place] | | | | | | [address] | | | | + + + [...] EXTERNAL | | | | performed at [facility];[address] | | LAB | | | | [facility];[place], [place] | | | | | | [address] | | | | + + + [...] EXTERNAL | | | | performed at [facility];[address] | | LAB | | | | [address] [facility];[place], [place] | | | | | | [address] | | | | + + + [...] EXTERNAL | | | | performed at [facility];[address] | | LAB | | | | [address];[place], [place] | | | | | | [address] | | | | + + + [...] LAB | | | | performed at [facility] | | | | | | [address];[place], [place] | | | | | | [address] | | | | + + + [...]
--- OUTSIDE RECORDS SUMMARY | ~2020-04-05 | XMS | Encounter Summary ---
Demographics + + + | Address | [address] | | | [place] [address] | + + + | Home Phone [...] [place], [place] | | | | | [address] | | + + + + + | Lydia Palm | ECON | [place], [place] | | | | | [address] | | + + + + + | melinda METZ" | ECON | [place], [place] | | | [place] | | [address] | | + + + + + | Jose C Oconnor | ECON | [address] [place] | | | | | [place] | | | | | [address] | | + + + + + Care Team Providers + +------+ + | Care Portfolio Mgr Name | Role | Phone | + [...] + + | 09/03/ | Telephone | [facility] | Nidhi Whitaker, | Post-op Problem | | 2018 | | VASCULAR SURGERY | RN | | | | | [address] | | | | | | [place] | | | | | | [address] | | | | | | [phone] | | | +--------+ + + + [...]
--- OUTSIDE RECORDS SUMMARY | ~2020-04-05 | XMS | Encounter Summary ---
Demographics + + + | Address | [address] | | | [place] [address] | + + + | Home Phone | | + + + | Preferred Language | Unknown | + + + | Marital Status | | + + + | Quaker Affiliation | Unknown | + + + | Race | Unknown | + + + | Ethnic Group | Unknown | + + + Author + + + | Author | [facility] | | | and [place] | + + + | Organization | [facility] | | | and [place] | + + + | Address | Unknown | + + + | Phone | Unavailable | + + + Support + + + + + | Name | Relationship | Address | Phone | + + + + + | Lyubov Smalls | ECON | [place], [place] | | | | | [address] | | + + + + + | Lydia Palm | ECON | [place], [place] | | | | | [address] | | + + + + + | melinda METZ" | ECON | [place], [place] | | | [place] | | [address] | | + + + + + | Jose C Oconnor | ECON | [address] [place] | | | | | [place] | | | | | [address] | | + + + + + Care Team Providers + +------+ + | Care Pheresis Nurse Name | Role | Phone | + +------+ + | No, Physician | PCP | Unavailable | + +------+ + Reason for Visit +--------+ + | Reason | Comments | +--------+ + | Wound | | +--------+ + Encounter Details +--------+ + + + + | Date | Type | Department | Care Team | Description | +--------+ + + + + | 08/12/ | Telephone | [facility] | Qasim Pederson MD | Wound | | 2019 | | VASCULAR SURGERY | [address] | | | | | [address] | [place], [place] | | | | | [place], [place] | [address] | | | | | [address] | | | | | | [phone] | | | +--------+ + + + [...]
--- OUTSIDE RECORDS SUMMARY | ~2020-04-05 | XMS | Encounter Summary ---
Demographics + + + | Address | [address] | | | [place] [address] | + + + | Home Phone | | + + + | Preferred Language | Unknown | + + + | Marital Status | | + + + | Roman Catholic Affiliation | Unknown | + + + | Race | Unknown | + + + | Ethnic Group | Unknown | + + + Author + + + | Author | [facility] | | | and [place] | + + + | Organization | [facility] | | | and [place] | + + + | Address | Unknown | + + + | Phone | Unavailable | + + + Support + + + + + | Name | Relationship | Address | Phone | + + + + + | Lyubov Smalls | ECON | [place], [place] | | | | | [address] | | + + + + + | Lydia Palm | ECON | [place], [place] | | | | | [address] | | + + + + + | melinda METZ" | ECON | [place], [place] | | | [place] | | [address] | | + + + + + | Jose C Oconnor | ECON | [address] [place] | | | | | [place] | | | | | [address] | | + + + + + Care Team Providers + +------+ + | Care Fluxer Name | Role | Phone | + +------+ + | Juan F Whitley DO | PCP | | + +------+ + Encounter Details +--------+ + + + + | Date | Type | Department | Care Team | Description | +--------+ + + + + | 05/06/ | Hospital | [facility] | Qasim Pederson MD | | | 2019 | Encounter | [facility] | [address] | | | | | INTENSIVE CARE UNIT | E [place], [place] | | | | | [address] | [address] | | | | | [place], [place] | | | | | | [address] | | | | | | [phone] | | | +--------+ + + + [...] Progress Note by Neal Dietz RN at 05/06/191549 Author: Neal Dietz RN Service: (none) Author Type: Registered Nurse Filed: 05/06/191557 Date of Service: 05/06/191549 Status: Signed Magician/Illusionist: Neal Dietz RN (Registered Nurse) Pt discharged [...] ef fect. docume nted in this encounter Plan of [...] | | | QUALITATIVE | performed at [facility];[address] | | LAB | | | | [address];[place], [place] | | | | | | [address] | | | | + + + [...] | | | | | | MDRD IDKY traceable | | | | | | equation.Testing | | | | | | performed at [facility] | | | | | | [facility];[place], [place] | | | | | | [address] | | | | + + + [...]
--- OUTSIDE RECORDS SUMMARY | ~2020-04-05 | XMS | Encounter Summary ---
Demographics + + + | Address | [address] | | | [place] [address] | + + + | Home Phone [...] [place], [place] | | | | | [address] | | + + + + + | Lydia Palm | ECON | [place], [place] | | | | | [address] | | + + + + + | melinda METZ" | ECON | [place], [place] | | | [place] | | [address] | | + + + + + | Jose C Oconnor | ECON | [address] [place] | | | | | [place] | | | | | [address] | | + + + + + Care Team Providers + +------+ + | Care Materials Manager Name | Role | Phone | [...] + + | 11/23/ | Office | [facility] | Man Jeronimo, | ESRD on dialysis | | 2020 | Visit | VASCULAR SURGERY | [address] | ([facility]) (Primary Dx) | | | | [address] | [address], | | | | | [place], [place] | [place] [address] | | | | | [address] | [phone] | | | | | [phone] | | | +--------+---------+ + + + [...] encounter Progress Notes Man Jeronimo PA-C - 11/23/2019 1:00 PM PSTFormatting of this note might be different f rom the original. [facility] [address] [place] [address] [place] [address] Office: [phone] DATE OF VISIT: 11/23/2019 PATIENT NAME: Ramona [...] 08/26 patient was emerg ently transferred to [facility] for severe bleeding [...] 10/25/15 showed normal sized kidneys. 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 GERD (gastroesophageal reflux disease) Hypercalcemia 09/07/2017 Hyperphosphatemia [...] STENTS ; Surgeon: Qasim Pederson MD; Location: [facility] MAIN OR AV FISTULA REPAIR Left 09/03/2019 Procedure: Resection of left arm AV graft with wound vac placement; Surgeon: Lexi Posada; Location: [facility] MAIN OR CATHETER REMOVAL 02/04/2019 Procedure: DIALYSIS CATHETER - REMOVAL; Surgeon: Qasim Pederson MD; Location: [facility] MAIN OR ; Service: Vascular; Laterality: N/A; Infected PD catheter removal DEBRIDEMENT Left 07/08/2019 Procedure: LEFT AXILLA WOUND DEBRIDEMENT, WASHOUT AND POSSIBLE WOUND VAC PLACEMENT; Surge on: Qasim Pederson MD; Location: [facility] MAIN OR OTHER SURGICAL HISTORY Left 03/11/2019 AV FISTULA PLACEMENT - Procedure: AV FISTULA; Surgeon: Qasim Pederson MD; Location: [facility]; Service: Vascular; Laterality: Left; OTHER SURGICAL HISTORY HARDWARE PRESENT OTHER SURGICAL HISTORY Right 01/2019 chest wall OTHER SURGICAL HISTORY Left 05/06/2019 AV GRAFT CREATION - Procedure: AV GRAFT CREATION; Surgeon: Qasim Pederson MD; Location: [facility] MAIN OR; Service: Vascular; Laterality: Left; [...] CV: No peripheral edema, rate regular SKIN: [place], warm, dry without rash/lesion MS: ROM not [...] Dr. Pederson. Man Jeronimo PA-C Vascular Surgery . [facility] encounter Plan of Treatment Not on filedocumented as of this encounter Visit Diagnoses + + | Diagnosis | + + | ESRD on dialysis (HCC) - Primary End stage renal disease | + + documented in this encounter
--- OUTSIDE RECORDS SUMMARY | ~2020-04-05 | XMS | Encounter Summary ---
Demographics + + + | Address | [address] | | | [place] [address] | + + + | Home Phone [...] [place], [place] | | | | | [address] | | + + + + + | Lydia Palm | ECON | [place], [place] | | | | | [address] | | + + + + + | melinda METZ" | ECON | [place], [place] | | | [place] | | [address] | | + + + + + | Jose C Oconnor | ECON | [address] [place] | | | | | [place] | | | | | [address] | | + + + + + Care Team Providers + +------+ + | Care Dry Box Tender Name | Role | Phone | + +------+ + | Unknown, Physician | PCP | | + +------+ + Encounter Details +--------+ + + + + | Date | Type | Department | Care Team | Description | +--------+ + + + + | 02/15/ | Transcribed | [facility] | Echaiz Correa, | Peritonitis | | 2019 | Orders | [facility] | Alonzo Jasso MD | associated with | | | | [address] | [address] | peritoneal dialysis, | | | | [place] | [place] [address] | initial encounter | | | | [address] | [phone] | ([facility]) | | | | [phone] | | | +--------+ + + + [...]
--- OUTSIDE RECORDS SUMMARY | ~2020-04-05 | XMS | Encounter Summary ---
Demographics + + + | Address | [address] | | | [place] [address] | + + + | Home Phone [...] [place], [place] | | | | | [address] | | + + + + + | Lydia Palm | ECON | [place], [place] | | | | | [address] | | + + + + + | melinda METZ" | ECON | [place], [place] | | | [place]ba | | [address] | | + + + + + | Jose C Oconnor | ECON | [place] | | | | | [place] | | | | | [address] | | + + + + + Care Team Providers + +------+ + | Care Wire Twister Name | Role | Phone | + [...] + + | 11/23/ | Office | [facility] | Man Jeronimo, | ESRD on dialysis | | 2020 | Visit | VASCULAR SURGERY | [address] | ([facility]) (Primary Dx) | | | | [address] | [address]ESUS, | | | | | [place], [place] | [place] [address] | | | | | [address] | [phone] | | | | | [phone] | | | +--------+---------+ + + + [...] be different f rom the original. [facility] [address] [place] [address] [place] [address] Office: [phone] DATE OF VISIT: 11/23/2019 PATIENT NAME: Ramona [...] history of HTN and ESRDwho presented to [facility] ED with fever and chills with [...] patient was emerg ently transferred to [facility] for severe bleeding from left axilla. She [...] 10/25/15 showed normal sized kidneys. 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 GERD (gastroesophageal reflux disease) Hypercalcemia 09/07/2017 Hyperphosphatemia [...] STENTS ; Surgeon: Qasim Pederson MD; Location: [facility] MAIN OR AV FISTULA REPAIR Left 09/03/2019 Procedure: Resection of left arm AV graft with wound vac placement; Surgeon: Lexi Posada; Location: [facility] MAIN OR CATHETER REMOVAL 02/04/2019 Procedure: DIALYSIS CATHETER - REMOVAL; Surgeon: Qasim Pederson MD; Location: [facility] MAIN OR ; Service: Vascular; Laterality: N/A; Infected PD catheter removal DEBRIDEMENT Left 07/08/2019 Procedure: LEFT AXILLA WOUND DEBRIDEMENT, WASHOUT AND POSSIBLE WOUND VAC PLACEMENT; Surge on: Qasim Pederson MD; Location: [facility] MAIN OR OTHER SURGICAL HISTORY Left 03/11/2019 AV FISTULA PLACEMENT - Procedure: AV FISTULA; Surgeon: Qasim Pederson MD; Location: [facility]; Service: Vascular; Laterality: Left; OTHER SURGICAL HISTORY HARDWARE PRESENT OTHER SURGICAL HISTORY Right 01/2019 chest wall OTHER SURGICAL HISTORY Left 05/06/2019 AV GRAFT CREATION - Procedure: AV GRAFT CREATION; Surgeon: Qasim Pederson MD; Location: [facility] MAIN OR; Service: Vascular; Laterality: Left; bovine carotid graft OTHER SURGICAL HISTORY Left 05/26/2019 WOUND VAC PLACEMENT/REPLACEMENT - Procedure: WOUND VAC - PLACEMENT - REPLACEMENT; Surgeon : Qasim Pederson MD; Location: [facility] MAIN OR; Service: Vascular; Laterality: Left; PERITONEAL CATHETER PLACEMENT/REMOVAL 10/28/2015 Procedure: LAPAROSCOPIC - PERITONEAL DIALYSIS CATH INSERTION; Surgeon: Mundo Ramos MD; Lo cation: [facility] MAIN OR; Service: Vascular; Laterality: N/A; UPPER GASTROINTESTINAL ENDOSCOPY 09/10/2017 Procedure: ESOPHAGOGASTRODUODENOSCOPY; Surgeon: Beena Peters MD; Location: [facility] ENDOSCOP [facility]; Service: Gastroenterology; Laterality: N/A; [...] CV: No peripheral edema, rate regular SKIN: [place], warm, dry without rash/lesion MS: ROM not [...] Dr. Pederson. Man Jeronimo PA-C [facility] in this encounter Plan of Treatment Not on filedocumented as of this encounter Visit Diagnoses + + | Diagnosis | + + | ESRD on dialysis (HCC) - Primary End stage renal disease | + + documented in this encounter
--- OUTSIDE RECORDS SUMMARY | ~2020-04-05 | XMS | Encounter Summary ---
Demographics + + + | Address | [address] | | | [place] [address] | + + + | Home Phone [...] + + | Author | [facility] | | | and [place] | + + + | Organization | [facility] | | | and [place] | + + + | Address | Unknown | + + + | Phone | Unavailable | + + + Support + + + + + | Name | Relationship | Address | Phone | + + + + + | Lyubvo Smalls | ECON | [place], [place] | | | | | [address] | | + + + + + | Lydia Palm | ECON | [place], [place] | | | | | [address] | | + + + + + | melinda METZ" | ECON | [place], [place] | | | [place] | | [address] | | + + + + + | Tyler Oconnor | ECON | [place] | | | | | [place] | | | | | [address] | | + + + + + Care Team Providers + +------+ + | Care Propeller Tester Name | Role | Phone | + +------+ + | Juan F Whitley DO | PCP | | + +------+ + Encounter Details +--------+ + + + + | Date | Type | Department | Care Team | Description | +--------+ + + + + | 12/24/ | Hospital | [facility] | Espino[place], | Abdominal pain, | | 2019 - | Encounter | [facility] | MD [address] | unspecified | | | | CLINICAL DECISION | [address] | abdominal location; | | 12/27/ | | [address] | [place] [address] | End-stage renal | | 2019 | | [place], [place] | [phone] | disease on | | | | [address] | | peritoneal dialysis | | | | [phone] | | ([facility]); Anemia in | | | | | | ESRD (end-stage | | | | | | renal disease) | | | | | | ([facility]); | | | | | | Hyperphosphatemia; [...] Service: Hospitalist Author Type: Physician Filed: 12/27/18 7909 Date of Service: 12/27/18 1249 Status: Signed Grain Distributor: Hilda Edwards DO (Physician) Patient: Ramona Oconnor [...] PD associated peritonitis. She was transferred from [place] for [facility]. [facility] [...] Information: Follow [place]: [place] [address] [facility] [address] Medication List CONTINUE taking these medications ALPRAZolam 0.5 MG tablet Refills: 0 Commonly known as: XANAX amLODIPine 2.5 MG tablet Refills: 0 Commonly known as: NORVASC cefdinir 300 MG capsule QTY: 9 capsule Refills: 0 Commonly known as: OMNICEF Take 1 capsule by mouth daily. clonazePAM 0.5 MG tablet Refills: 0 Commonly known as: KlonoPIN ergocalciferol 04668 units capsule Refills: 0 Commonly known as: [...] 1534 Date of Service: 12/27/181529 Status: Signed Grain Distributor: Phillip Gonzalez RN (Registered Nurse) Pt given [...] Date of Service: 12/27/18 1007 Status: Signed Grain Distributor: Tyler Kaye DO (Physician) [facility] Service: Infectious Disease Progress Note Hospital Day: [...] OR acetaminophen, ALPRAZolam, HYDROcodone-acetaminophen, HYDROmorphone OR HYDROmorphone, tzygomies-jttvli-lvpxsavfgi, ondansetron OR ondansetron, polyethylen e glycol, simethicone, [...] 0709 Date of Service: 12/27/18708 Status: Signed Grain Distributor: Minerva Cruz RPH (Pharmacist) Clinical Pharmacy Note: [...] Date of Service: 12/27/18 0500 Status: Signed Grain Distributor: Maryse Khan RN (Registered Nurse) End of shift chart audit complete. Maryse Khan RN onver patric Transaction, Provider Unknown - 12/26/2018 7:39 PM PST Nurse Progress Note by Phillip Gonzalez RN at 12/26/181938 Author: Phillip Gonzalez RN Service: (none) Author Type: Registered Nurse Filed: 12/26/181938 Date of Service: 12/26/181938 Status: Signed Grain Distributor: Phillip Gonzalez RN (Registered Nurse) Chart check complete. Phillip Gonzalez RN Hilda Peraza DO - 12/26/2018 4:41 PM PST Progress Notes by Hilda Edwards DO at 12/26/18 1641 Author: Hilda Edwards DO Service: Hospitalist Author Type: Physician Filed: 12/26/181651 Date of Service: 12/26/18 164 Status: Signed Grain Distributor: Hilda Edwards DO (Physician) [facility] Service: Hospitalist Progress Note Hospital Day: LOS: [...] OR acetaminophen, ALPRAZolam, HYDROcodone-acetaminophen, HYDROmorphone OR HYDROmorphone, mtcarsnve-dlpuot-eghzwadgni, ondansetron OR ondansetron, polyethylen e glycol, simethicone, [...] 12/26/1844 Date of Service: 12/26/18717 Status: Signed Grain Distributor: Ag Flores RN (Registered Nurse) End of [...] 12/26/1856 Date of Service: 12/26/18655 Status: Signed Grain Distributor: Ryan Anand RPH (Pharmacist) Clinical Pharmacy Note: [...] 12/25/181909 Date of Service: 12/25/181908 Status: Signed Grain Distributor: Phillip Gonzalez RN (Registered Nurse) Pt care taken over from Liza MARTINEZ. This nurse agrees with her assessments. Pt currently unde rgoing peritoneal dialysis. Chart check complete. Phillip Gonzalez RN pHilda davenport DO - 12/25/2018 3:53 PM PST Progress Notes by Hilda Edwards DO at 12/25/181552 Author: Hilda Edwards DO Service: Hospitalist Author Type: Physician Filed: 12/25/181757 Date of Service: 12/25/181552 Status: Addendum Grain Distributor: Hilda Edwards DO (Physician) Related Notes: Original Note by Hilda Edwards DO (Physician) filed at 12/25/181757 [facility] Service: Hospitalist Progress Note Hospital Day: LOS: [...] OR acetaminophen, ALPRAZolam, HYDROcodone-acetaminophen, HYDROmorphone OR HYDROmorphone, wgklsydid-cfkisi-gnaotnwoct, ondansetron OR ondansetron, polyethylen e glycol, zolpidem [...] Note by Liza Santana RN at 12/25/18 9099 Author: Liza Santana RN Service: (none) Author Type: Registered Nurse Filed: 12/25/18 1320 Date of Service: 12/25/181324 Status: Signed Grain Distributor: Liza Santana RN (Registered Nurse) Talked with [...] 1256 Date of Service: 12/25/181248 Status: Signed Grain Distributor: Liza Santana RN (Registered Nurse) Report handed [...] 123 Date of Service: 12/25/181235 Status: Signed Grain Distributor: Katherine Sheehan RPH (Pharmacist) Discussed with Dr. Cih. He would like to continue with IV antibiotics only at this point and no need to add antibiotics to IP fluid exchange. Dosing recommendations and protocol state to dose ceftazidime 500 mg IV q24, however, per D kalina Chi will increase maintenance dose to ceftazidime 1g IV q24h Katherine Sheehan PharmD, [facility] onver ptaric Transaction, Provider Unknown - 12/25/2018 9:15 AM PST Nurse Progress Note by Liza Santana RN at 12/25/18914 Author: Liza Santana RN Service: (none) Author Type: Registered Nurse Filed: 12/25/18915 Date of Service: 12/25/18914 Status: Signed Grain Distributor: Liza Santana RN (Registered Nurse) Per family, patient resting at this time, asked for pt to be allow to sleep undisturbed. onver patric Transaction, Provider Unknown - 12/25/2018 8:35 AM PST Case Management by LUCILLE Calvo at 12/25/18834 Author: LUCILLE Calvo Service: (none) Author Type: Jewelry Mold Maker Filed: 12/25/18834 Date of Service: 12/25/18834 Status: Signed Grain Distributor: LUCILLE Calvo (Jewelry Mold Maker) CM met with pt for discharge planning. [...] 12/25/18718 Date of Service: 12/25/18717 Status: Signed Grain Distributor: Liza Santana RN (Registered Nurse) Mode Ramires [...] 12/25/18625 Date of Service: 12/25/18625 Status: Signed Grain Distributor: Nadege Gupta RN (Registered Nurse) End of shift chart audit completed. onver patric Transaction, Provider Unknown - 12/25/2018 5:49 AM PST Pharmacy Note by Ryan Anand RPH at 12/25/18548 Author: Ryan Anand RPH Service: Pharmacy Author Type: Pharmacist Filed: 12/25/18548 Date of Service: 12/25/18548 Status: Signed Grain Distributor: Ryan Anand RPH (Pharmacist) Clinical Pharmacy Note: [...] 12/25/18524 Date of Service: 12/25/18524 Status: Signed Grain Distributor: Ryan Anand RPH (Pharmacist) Clinical Pharmacy Note: [...] Date of Service: 12/25/18 0301 Status: Signed Grain Distributor: Nadege Gupta RN (Registered Nurse) Peritoneal fluid collected by PD Nurse from the PD cath and was sent to lab. onver patric Transaction, Provider Unknown - 12/24/2018 11:53 PM PST Nurse Progress Note by Nadege Gupta RN at 12/24/182352 Author: Nadege Gupta, RN Service: (none) Author Type: Registered Nurse Filed: 12/24/182355 Date of Service: 12/24/182352 Status: Signed Grain Distributor: Nadege Gupta RN (Registered Nurse) Called Dr. [...] EXTERNAL | | | | performed at [facility], [address] | | LAB | | | | [address], | | | | | | [place] [address] | | | | + + + [...] | | | Random | performed at [facility];[address] | | LAB | | | | [address];[place], [place] | | | | | | [address] | | | | + + + [...] | | | | | | MDRD IDMO traceable | | | | | | equation.Testing | | | | | | performed at [facility], [address] | | | | | | [facility], | | | | | | [place] [address] | | | | + + + [...] | | | Basophils | performed at [facility];[address] | [address] | LAB | | | | [address];[place] | | | | | | [address] | | | | + + + [...] + + | Historically converted procedure from [facility] Epic environment | EXTERNAL LAB | + [...] | | | Random | performed at [facility];[address] | | LAB | | | | [address];[place], [place] | | | | | | [address] | | | | + + + [...] | | | | | | MDRD IDMO traceable | | | | | | equation.Testing | | | | | | performed at [facility];[address] | | | | | | [facility];[place], [place] | | | | | | [address] | | | | + + + [...] | | CLEAR RBC'S | | | <33837 TOTAL NUCLEATED CELLS | | | 109 NEUTROPHILS | | | 92 LYMPHOCYTES 5 | | | MONOCYTES/MACROPHAGES 3 | | | CELLS COUNTED 100 Testing | | | performed at [facility];[address] [place] [address];[place] [address] | | + + + + +---------+ [...] at | | | | | | [facility], [address] | | | | | | [place], [place] | | | | | | [address] | | | | + + + [...] EXTERNAL | | | | performed at [facility], [address] | | LAB | | | | [address], | | | | | | [place] [address] | | | | + + + [...] Any, | | | | | | [place] [address] | | | | + + + [...] NEGATIVE Testing | | | performed at [facility];[address] [place] [address];[place] [address] | | + + + + +---------+ [...]
--- OUTSIDE RECORDS SUMMARY | ~2020-04-05 | XMS | Encounter Summary ---
Demographics + + + | Address | [address] | | | [place] [address] | + + + | Home Phone [...] [place], [place] | | | | | [address] | | + + + + + | Lydia Palm | ECON | [place], [place] | | | | | [address] | | + + + + + | melinda METZ" | ECON | [place], [place] | | | reba | | [address] | | + + + + + | Jose C Oconnor | ECON | [place] | | | | | [place] | | | | | [address] | | + + + + + Care Team Providers + +------+ + | Care Skein Bleacher Name | Role | Phone | + +------+ + | Juan F Whitley DO | PCP | | + +------+ + Encounter Details +--------+ + + + + | Date | Type | Department | Care Team | Description | +--------+ + + + + | 03/04/ | Hospital | [facility] | Espinoza, | Generalized | | 2018 - | Encounter | [facility] [address] | MD Jose [address] | abdominal pain; | | | | [address] | [address] | End-stage renal | | 03/09/ | | [place], [place] | [place] [address] | disease on | | 2018 | | [address] | [phone] | peritoneal dialysis | | | | [phone] | | ([facility]); | | | | | | Non-intractable | | | | | | vomiting with | | | | | | nausea, unspecified | | | | | | vomiting type | +--------+ + + + + Social [...] | Blood Pressure | 113/78 | 03/09/2018 4:59 PM | | | | | PDT | | + + + + + | Pulse | 80 | 03/09/2018 4:59 PM | | | | | PDT | | + + + + + | Temperature | 36.7 C (98.1 F) | 03/09/2018 4:59 PM | | | | | PDT | | + + + + + | Respiratory Rate | 18 | 03/09/2018 4:59 PM | | | | | PDT | | + + + + + | Oxygen Saturation | - | - | | + + + + + | Inhaled Oxygen | - | - | | | Concentration | | | | + + + + + | Weight | 83.9 kg (184 lb 15.5 | 03/09/2018 4:59 PM | | | | oz) | PDT | | + + + + + | Height | 157.5 cm (5' 2") | 03/09/2018 4:59 PM | | | | | PDT | | + + + + + | Body Mass Index | 33.83 | 03/09/2018 4:59 PM | | | | | PDT | | + + + + + documented in this encounter Discharge Summaries Lukas Lynn MD - 03/09/2018 6:55 AM PDTFormatting of this note might be different f rom the original. Discharge Summaries by ODALIS ColónR3 at 03/09/1861 Author: ODALIS [email or web address] Service: Hospitalist Author Type: Resident-Y2 Filed: 03/09/18 4580 Date of Service: 03/09/18654 Status: Attested Game Trapper: ODALIS [email or web address] (Resident-Y3) Cosigner: Kemal Maloney MD at 11/27 Attestation signed by Kemal Maloney MD at 03/10/181752 Patient seen and examined along with residents prior to discharge. She is 38 year old lady (not 2 year old as mentioned in the note of my resident) who is on peritoneal dialysis at [facility] presented with PD induced peritonitis and was treated with IV vancomycin and IV ceftazidi me. Patient responded well to antibiotics and is being discharged home in stable condition w ith 10 more days of vancomycin and ceftazidime per nephrology recommendations. Service: Hospitalist Discharge Summary Pt: Ramona Oconnor AGE/SEX: 38 y.o. female ROOM: [facility]/406-1 PCP: [facility] : 1980 Date of Admission: 03/04/2018 Date of Discharge: Discharge Provider: Lukas Lynn MD-R2/Dr. Kemal Maloney Treatment Team: Consulting Physician: Santos Chi MD Consulting Physician: Linden Monte MD Admitting Provider: Jose Doran MD Discharge [...] was 9. [place] days of antibiotics to be administered by her peritoneal dialysis nurse. DISCHARGE EXAM Vital Signs: BP 113/78 (BP Location: Left upper arm) | Pulse 80 | Temp 98.1 F (36.7 C) (Oral) | R enmanule 18 | Ht 1.575 m (5' 2") [...] Mar 05 2018 3:51AM Referring Provider Line: [phone] ID: [id number] PLAN Patient is to be discharged home. She will be followed up tomorrow with her peritoneal dial ysis nurse to continue her outpatient antibiotic therapy. Disposition: Home Condition: Good Code Status: DNR/DNI No discharge procedures on file. Follow up: [facility] [address] [place] [id number] In 1 week hospital follow up Medication [...] Refills: 0 Commonly known as: NORVASC ergocalciferol 78368 units capsule Refills: 0 Commonly known as: [...] summary. Lukas Lynn MD-R2 03/09/2018 4:14 PM documented in this encounter Medications at [...] Progress Notes Conversion Transaction, Provider Unknown - 03/09/2018 4:28 PM PDTFormatting of this note m ight be different from the original. Nurse Progress Note by Dario Fry at 03/09/181627 Author: Dario Fry Service: (none) Author Type: Wood Cabinetmaker Filed: 03/09/181628 Date of Service: 03/09/181627 Status: Signed Game Trapper: Dario Fry (Wood Cabinetmaker) Vitals: 03/09/18 1527 BP: Pulse: 80 Resp: 18 Temp: 98.1 F (36.7 C) SpO2: 97% Pt will discharge via wheelchair to personal vehicle with family within the hour. Discussed all discharge and prescription information with patient. Patient verbalized an understandi ng of all discharge and prescription information. Pt in stable condition. All personal belon gings with patient at time of discharge. ADDIE Armstrong 4:28 PM 03/09/18 onver patric Prabha, Provider Unknown - 03/09/2018 12:12 PM PDT Case Management by LUCILLE Grimaldo at 03/09/18 1212 Author: LUCILLE Grimaldo Service: (none) Author Type: Quality Improvement Coordinator (Rn) Filed: 03/09/18 1635 Date of Service: 03/09/18 1212 Status: Addendum Game Trapper: LUCILLE Grimaldo (Quality Improvement Coordinator (Rn)) Related Notes: Original Note by LUCILLE Grimaldo (Quality Improvement Coordinator (Rn)) filed at 03/09/18 1529 Discharge planning: CM was advised by Dr. Maloney that pt's IV Abx orders will be written b y Dr. Monte ([phone]). CM paged Dr Monte for orders and discharge plan. CM needs to call Dr Lukas Lynn at [phone] when discharge plan is confirmed and when pt is ready for di scharge. [address] Lukas Lynn and he is researching and will call CM back. 1633 CM faxed H&P and Discharge Summary to [facility], Attn: Maryse, (Fa x: ). Linden Kincaid MD - 03/09/2018 7:25 AM PDTFormatting of this note might be different from th e original. Progress Notes by Linden Monte MD at 03/09/18 0710 Author: Linden Monte MD Service: Nephrology Author Type: Physician Filed: 03/11/18 8129 Date of Service: 03/09/18724 Status: Signed Game Trapper: Linden Monte MD (Physician) [facility] Service: NEPHROLOGY Progress Note Ramona Oconnor 38 y.o. [id number] 406/406-1 female [facility] Hospital Day: LOS: 4 days Patient with PMH as listed below admitted with Peritonitis Nephrology consulted for evaluation and management of ESRD CHRONIC SEVERE ASSOCIATED WITH FLUID ELECTROLYTE IMBALANCES Assess need for dialysis SUBJECTIVE Patient seen and examined SAYS FEEL Better, pd fluid c/s ngtd DENIES CHEST PAIN, SOB, NAUSEA, VOMITING, DIARRHEA, FEVER, COUGH, HEADACHE Past Medical History Diagnosis Date Diverticulosis GERD (gastroesophageal reflux disease) Hypercalcemia 09/07/2017 Hyperphosphatemia 10/28/2015 Hypocalcemia 10/28/2015 Itching 10/28/2015 Metabolic acidosis 10/28/2015 Obesity Peritonitis associated with peritoneal dialysis (HCC) 01/24/2017 Uremia 10/28/2015 Past Surgical History Procedure Laterality Date ESOPHAGOGASTRODUODENOSCOPY N/A 09/10/2017 Procedure: ESOPHAGOGASTRODUODENOSCOPY; Surgeon: Beena Peters MD; Location: [facility]; Service: Gastroenterology; Laterality: N/A; PERITONEAL CATHETER INSERTION N/A 10/28/2015 Procedure: LAPAROSCOPIC - PERITONEAL DIALYSIS CATH INSERTION; Surgeon: Mundo Ramos MD; Lo cation: [facility]; Service: Vascular; Laterality: N/A; History reviewed. No pertinent family history. Social [...] Narrative No narrative on file Scheduled Medications Continuous Infusions PRN Medications Allergy: No Known Allergies OBJECTIVE Vital Signs: BP 113/78 (BP Location: Left upper arm) | Pulse 80 | Temp 98.1 F (36.7 C) (Oral) | R enmanuel 18 | Ht 1.575 m (5' 2") | Wt 83.9 kg (184 lb 15.5 oz) | SpO2 97% | ? No | BMI 33.83 kg/m I&O Detailed Table: I/O last 3 completed shifts: In: 340 [P.O.:340] Out: - Weight change: 0.2 kg (7.1 oz) Examination: APPEARANCE: The patient is lying in no apparent distress. VITALS: Reviewed as listed. EYES: Non-icteric sclera. LUNGS: Clear to auscultation bilaterally. HEART: S1, S2, no pericardial rub noted. ABDOMEN: Full, soft, no tenderness. +ve pd catheter in place EXTREMITIES: no pedal edema noted. NEUROLOGIC: No gross focal motor deficit noted, no Asterixis. PSYCH: The patient is alert and oriented x 3, mood and affect looks ok BACK: no CVA tenderness noted LABS: No results found for this or any previous visit (from the past 24 hour(s)). Imaging Ct Abdomen Pelvis With Contrast Result Date: 03/05/2018 EXAM: CT ABDOMEN AND PELVIS EXAM DATE: 03/05/2018 02:27 AM. CLINICAL HISTORY: Abdominal pain . COMPARISONS: 09/07/2017. TECHNIQUE: Routine helical CT imaging was performed through the a bdomen and pelvis. IV contrast: Nonionic. Enteric contrast: No. Reconstructions: Coronal and sagittal. In accordance with CT protocol optimization, one or more of the following dose re duction techniques were utilized for this exam: automated exposure control, adjustment of mA and/or KV based on patient size, or use of iterative reconstructive technique. FINDINGS: Love ng Bases: Unremarkable. Liver: Possible fatty infiltration. Gallbladder/Bile Ducts: Unremark able. Spleen: Normal. Pancreas: Normal. Adrenal Glands: Right adrenal appears normal. Left a drenal adenoma. Kidneys: Moderate bilateral atrophy. No masses or hydronephrosis. Peritoneal Cavity/Bowel: Colonic diverticula with no definite evidence of diverticulitis. No bowel obs truction seen. Trace amount of free fluid in the pelvis. No free air. No lymphadenopathy. Pe ritoneal dialysis catheter again seen in the pelvis. Appendix appears normal. Pelvic Organs: Masslike area again seen in the right adnexa measuring 4.9 x 3.7 cm. Visualized pelvic orga ns are otherwise unremarkable. Vasculature: No aneurysms or other significant abnormality. Bones: No significant abnormality. Other: None. 1. Possible fatty liver. 2. Bilateral renal [...] Mar 05 2018 3:51AM Referring Provider Line: [phone] ID: [id number] PROBLEM LIST Principal Problem: Abdominal pain Active Problems: Gastroesophageal reflux disease without esophagitis ESRD on peritoneal dialysis Nausea with vomiting Anemia in ESRD (end-stage renal disease) (HCC) ASSESSMENT & PLAN ESRD ON PD Tolerating Pd/uf today Assess daily for need for Pd & uf Orders in the chart Fluid restriction 1.2 litres/24 hours Strict I & O Daily RFP Renal diet Daily weights will help with subsequent pd with uf Dose all meds per protocol for ESRD on pd Peritonitis Pd fluid c/s ngtd blood c/s coag neg staph aureus On vanco/ fortaz, called and spoke with pd rn at [facility] Janna kindly agreed to see her i n am and arrange for IP Abx ANEMIA in ESRD No need for Epogen as hgb above 11.0 EPOGEN TO KEEP HGB 10-11 Lab Results Component Value Date HGB 12.4 03/07/2018 HGB 12.0 03/06/2018 HGB 11.0 (L) 03/05/2018 FERRITIN 56 10/27/2015 LABIRON 12 (L) 10/27/2015 HYPERTENSION controlled WATCH BP CLOSELY DURING HOSPITALIZATION LOW NA DIET Will adjust BP meds according to BP readings BP Readings from Last 3 Encounters: 03/09/18 113/78 09/13/17 136/73 06/06/17 135/83 HYPERPHOSPHATEMIA improving LOW P DIET PO4 BINDERS Lab Results Component Value Date PHOS 5.6 (H) 03/09/2018 PHOS 6.2 (H) 03/08/2018 PHOS 6.0 (H) 03/07/2018 HYPOALBUMINEMIA INCREASE PROTEIN INTAKE Lab Results Component Value Date ALB 2.0 (L) 03/09/2018 ALB 1.9 (L) 03/08/2018 ALB 2.2 (L) 03/07/2018 CASE DISCUSSED IN DETAIL WITH PATIENT/ care team, ANSWERS ALL QUESTIONS IN DETAIL, VERBALIZ ES UNDERSTANDING LINDEN MONTE MD [facility] Seen earlier and charting completed later Dictation software, [employer], used which may contain error for similar sounding words even af ter review. Personal communication requested for any clarification. Portions of my notes may have been carried over for continuity of care. onversion Transa ction, Provider Unknown - 03/08/2018 6:38 PM PDT Nurse Progress Note by Alyce Fonseca RN at 03/08/18 1838 Author: Alyce Fonseca RN Service: (none) Author Type: Registered Nurse Filed: 03/08/18 1840 Date of Service: 03/08/18 1838 Status: Signed Game Trapper: Alyce Fonseca RN (Registered Nurse) Patient tolerating diet. Hydrocodone given for pain rated 5/10. onver patric Transaction, Provider Unknown - 03/08/2018 4:29 PM PDT Nurse Progress Note by Alyce Fonseca RN at 03/08/18 1629 Author: Alyce Fonseca RN Service: (none) Author Type: Registered Nurse Filed: 03/08/18 1630 Date of Service: 03/08/18 1629 Status: Signed Game Trapper: Alyce Fonseca RN (Registered Nurse) Patient tolerating small amount of food. She had Phengan PO x 1 and Zofran IV x 1 for nause a which was effective. Dilaudid IV given x 1. PO medication offered for pain when tolerating diet. VSS. alvor son, Lukas Raymundo MD - 03/08/2018 6:39 AM PDT Progress Notes by ODALIS ColónR3 at 03/08/18 0639 Author: ODALIS [email or web address] Service: Hospitalist Author Type: Resident-Y2 Filed: 03/08/18 1647 Date of Service: 03/08/18 0639 Status: Attested Addendum Game Trapper: ODALIS [email or web address] (Resident-Y3) Related Notes: Original Note by ODALIS [email or web address] (Resident-Y3) filed at 03/08/18 1 309 Cosigner: Kemal Maloney MD at 03/08/18 1715 Attestation signed by Kemal Maloney MD at 03/08/18 1715 Patient seen and examined along with my resident. All labs reviewed. Discussed with Dr. William dennis. Patient is on IV ceftazidime for bacterial peritonitis and off vancomycin. Likely disch arge home tomorrow. Duration of antibiotic per nephrology sevices. I agree with the progress note of Dr. Lynn. PROGRESS NOTE Pt: Ramona Oconnor AGE/SEX: 38 y.o. female ROOM: [facility]406-1 PCP: [facility] : 1980 PATIENT SUMMARY This is a [...] (36.9 C)] 98 F (36.7 C) (03/08 1144) BP: (103-150)/(68-78) 136/78 (03/08 1144) Heart Rate: [73-94] 78 (03/08 1144) Resp: [16-18] 16 (03/08 1144) SpO2: [94 %-99 %] 95 % (03/08 [...] Inpatient Lukas Lynn MD-R2 03/08/2018 1:09 PM onversion Tra nsaction, Provider Unknown - 03/07/2018 3:48 PM PDTFormatting of this note might be differe nt from the original. Nurse Progress Note by Alyce Fonseca RN at 03/07/18 1617 Author: Alyce Fonseca RN Service: (none) Author Type: Registered Nurse Filed: 03/07/18 8060 Date of Service: 03/07/18 989 Status: Signed Game Trapper: Alyce Fonseca RN (Registered Nurse) Patient resting a few hours this afternoon and reports she is feeling much better. She scarlett es nausea and pain and is going to attempt to eat something. VSS; she has been afebrile. Cesar Swann i, MD - 03/07/2018 9:32 AM PDTFormatting of this note might be different fro m the original. Progress Notes by Cesar Gatica MD at 03/07/18 0959 Author: Cesar Gatica MD Service: Hospitalist Author Type: Physician Filed: 03/07/18 9087 Date of Service: 03/07/1832 Status: Signed Game Trapper: Cesar Gatica MD (Physician) Related Notes: Original Note by Cesar Gatica MD (Physician) filed at 03/07/[address] [facility] Service: Hospitalist Progress Note Hospital [...] no edema. DATA Recent Labs Lab 03/07/1845203/06/1852403/05/1833103/04/18 2155 WBC 10.91 9.41 12.57* 14.92* HGB 12.4 [...] 03/07/2018 Invalid input(s): LABALBU Recent Labs Lab 04/28/18 0453 04/27/18 0525 04/26/18 0332 MG 3.0* 3.2* 3.5* No results for input(s): AMYLASE in the last 168 hours. No results for input(s): PHART, PO2ART, MEX3ITP, Y2BOPWFP, BEART in the last 168 hours. No [...] Mar 05 2018 3:51AM Referring Provider Line: [phone] ID: [id number] PROBLEM LIST Principal Problem: Abdominal [...] Status: DNR/DNI Cesar Gatica MD 03/07/2018 9:32 AM onversion Tr ansaction, Provider Unknown - 03/06/2018 3:05 PM PDTFormatting of this note might be differ ent from the original. Case Management by Ashley Calvert RN at 03/06/18 1505 Author: Ashley Calvert RN Service: (none) Author Type: Registered Nurse Filed: 03/06/18 1507 Date of Service: 03/06/18 1505 Status: Signed Game Trapper: Ashley Calvert RN (Registered Nurse) Discharge Planning: Reviewed previous CM notes and attended am rounds. Pt lives in [facility] [place] with sister and spouse. Home peritoneal dialysis pt. Per nsg, currently do not anticipate any discharge needs. No indication at this time that pt will discharge on IV abx. ASHLEY CALVERT 03/06/2018 3:07 PM onver patric Transaction, Provider Unknown - 03/06/2018 1:16 PM PDT Nurse Progress Note by SN Neris at 03/06/18 1316 Author: SN Neris Service: (none) Author Type: Insulation Cutter And Former Filed: 03/06/18 1319 Date of Service: 03/06/18 1316 Status: Signed Game Trapper: SN Neris (Insulation Cutter And Former) Pt was anxious and upset when I went into room, she was complaining of N/V and anxiety. I w as unable to calm patient down with distraction. MD called in Order for Ativan and Reglan. T his was given to patient. She stated she is feeling much better since administration of medi cation. She is now resting comfortably in bed. Bed is low and locked with call light in reac h. alvor son, Lukas Raymundo MD - 03/06/2018 6:46 AM PDT Progress Notes by ODALIS ColónR3 at 03/06/1846 Author: ODALIS [email or web address] Service: Hospitalist Author Type: Resident-Y2 Filed: 03/06/182000 Date of Service: 03/06/1846 Status: Attested Addendum Game Trapper: ODALIS [email or web address] (Resident-Y3) Related Notes: Original Note by Lukas A Leah, MD-R3 (Resident-Y3) filed at 03/06/18 1 439 Cosigner: Cesar Gatica MD at 03/06/182122 Attestation signed by Cesar Gatica MD at 03/06/182122 I have seen and examined the patient and agree with residents note. PROGRESS NOTE Pt: Ramona Oconnor AGE/SEX: 38 y.o. female ROOM: [address] [place] [address] PCP: [facility] : 1980 PATIENT SUMMARY This is a [...] (37.2 C)] 99 F (37.2 C) (03/06 151) BP: (96-127)/(51-71) 108/70 (03/06 151) Heart Rate: [55-76] 67 (03/06 151) Resp: [16-18] 18 (03/06 151) SpO2: [96 %-98 %] 98 % (03/06 151) Weight: [84.6 kg (186 lb 8.2 oz)-85.9 [...] QTC Calculation (Bezet) 507 ms Calculated P [place] 48 degrees Calculated R [place] 71 degrees Calculated T [place] 130 degrees Diagnosis Normal sinus rhythm T [...] Inpatient Lukas Lynn MD-R2 03/06/2018 3:25 PM onversion Tr jayro, Provider Unknown - 03/05/2018 4:07 PM PDTFormatting of this note might be differ ent from the original. Case Management by LUCILLE Grimaldo at 03/05/18 1600 Author: LUCILLE Grimaldo Service: (none) Author Type: Quality Improvement Coordinator (Rn) Filed: 03/05/18 1612 Date of Service: 03/05/18 1607 Status: Signed Game Trapper: LUCILLE Grimaldo (Quality Improvement Coordinator (Rn)) 03/05/18 1600 Discharge Planning Evaluation Admitting Diagnosis (Abdominal pain) Readmission No Living Arrangements Spouse/significant other;Family members Support Systems Spouse/significant other;Family members Type of Residence Private residence House type House 2 story Steps to enter 1 Independent with ADL's Yes Independent with Mobility Yes Home Care Services No Caregiver after Discharge No Mental Status Unable to answer questions Prior functional status (Independent) Power of Drafter Patent No Resources Financial concerns No Transportation issues No Patient/Family concerns No Prescription Plan Yes Name of Pharmacy ([facility] or [facility] in [place]) Previous home health equipment No Anticipated Disposition Facility Type Home CM met with pt(sleeping) and pt's mother, Lyubov Smalls and discussed dischar ge planning. Pt is a 38 y.o., female admitted for abdominal pain. Pt resides at [address] [place] [address] with her sister, Lydia and pt's , Jose C. Pt was independent with ADL's and mobility prior to admission. Pt has not had previous outpt PT/OT services, home O2, home care services, and has not take n blood thinners prior to admission. Pt receives home dialysis daily from 11pm to 11am. Patient's PCP is: Pt goes to the [facility] and sees Dr. Jerry as well. Patient's insurance: [employer]/Medicare/[facility] Coverage concerns: No Medication coverage/concerns: No Rx Bedside Delivery: No Community resources utilized / needed: No Assistance in transportation: No Identification of any specific education / training: No Barriers to Discharge / Alternative housing needed: No Anticipated DCP: return home with and family support LUCILLE Grimaldo, CM onver patric Transaction, Provider Unknown - 03/05/2018 1:38 PM PDT Case Management by LUCILLE Grimaldo at 03/05/180 Author: LUCILLE Grimaldo Service: (none) Author Type: Quality Improvement Coordinator (Rn) Filed: 03/05/181338 Date of Service: 03/05/181337 Status: Signed Game Trapper: LUCILLE Grimaldo (Quality Improvement Coordinator (Rn)) CM attempted to assess, but pt was not in the room. CM will revisit as time permits. alvor son, Lukas Raymundo MD - 03/05/2018 6:59 AM PDT Progress Notes by Lukas Lynn MD-R3 at 03/05/18658 Author: ODALIS ColónR3 Service: Hospitalist Author Type: Resident-Y2 Filed: 03/05/18 1448 Date of Service: 03/05/18658 Status: Attested Game Trapper: Lukas Lynn MD-R3 (Resident-Y3) Cosigner: Kemal Maloney MD at 1814 Attestation signed by Kemal Maloney MD at 03/05/181814 Patient sen and examined along with residents. All labs were personally reviewed by me. Per itoneal fluid cell count is consistent with peritonitis. Culture is pending. Patient is on I V vancomycin and ceftazidime. Will continue peritoneal dialysis. Discussed with Dr. Alon ledezma o will manage dialysis needs and antibiotics. I agree with the progress note of Dr. Lynn. PROGRESS NOTE Pt: Ramona Oconnor AGE/SEX: 38 y.o. female ROOM: [address] [place] [address] PCP: [facility] : 1980 PATIENT SUMMARY This is a [...] Inpatient Lukas Lynn MD-R2 03/05/2018 5:39 PM onversion Transac tion, Provider Unknown - 03/05/2018 5:03 AM PDTFormatting of this note might be different f rom the original. Pharmacy Note by Shelli Bustos RPH at 03/05/18502 Author: Shelli Bustos RPH Service: Pharmacy Author Type: Pharmacist Filed: 03/05/18502 Date of Service: 03/05/18502 Status: Signed Game Trapper: Shelli Bustos RPH (Pharmacist) Clinical Pharmacy Note: Renal Monitoring Height: 157.5 cm Weight: 79.9 kg Patient is on peritoneal dialysis. Pharmacy dosing for renal function per Dr. Martinez. Will order the following dosage adjustments: Pepcid 20 mg IV/PO Q24H Pharmacy will continue to follow and adjust medications as needed. Shelli Bustos PharmD 03/05/2018 5:03 AM onver patric Transaction, Provider Unknown - 03/05/2018 1:12 AM PDT Nurse Progress Note by April Madsen RN at 03/05/18111 Author: April Madsen RN Service: (none) Author Type: Registered Nurse Filed: 03/05/18 0115 Date of Service: 03/05/18111 Status: Signed Game Trapper: April Madsen RN (Registered Nurse) This contract agent called by to obtain peritoneal fluid sample for cell count, gram stain and culture. Only able to obtain 20ml of fluid even with pt repositioning in bed and l ater standing. Lab consulted if this was enough amount, lab will try to run tests and call R N back if it's insufficient. docume nted in this encounter Plan of Treatment Not on filedocumented as of this encounter Procedures + +--------+ + + + | Procedure Name | Priori | Date/Time | Associated Diagnosis | Comments | | | ty | | | | + +--------+ + + + | VANCOMYCIN LEVEL | Routin | 03/09/2018 | | Results for this | | | e | 4:48 AM | | procedure are in the | | | | PDT | | results section. | + +--------+ + + + | RENAL FUNCTION PANEL | Routin | 03/09/2018 | | Results for this | | | e | 4:48 AM | | procedure are in the | | | | PDT | | results section. | + +--------+ + + + | RENAL FUNCTION PANEL | Routin | 03/08/2018 | | Results for this | | | e | 5:15 AM | | procedure are in the | | | | PDT | | results section. | + +--------+ + + + | CELL COUNT, BODY | Routin | 03/07/2018 | | Results for this | | FLUID | e | 10:55 AM | | procedure are in the | | | | PDT | | results section. | + +--------+ + + + | CULTURE, BODY FLUID, | STAT | 03/07/2018 | | Results for this | | STERILE, SMEAR, | | 10:55 AM | | procedure are in the | | WITH ANAEROBES | | PDT | | results section. | + +--------+ + + + | CULTURE, BLOOD, 2ND | STAT | 03/07/2018 | | Results for this | | SPECIMEN (NON-ORD) | | 9:52 AM | | procedure are in the | | | | PDT | | results section. | + +--------+ + + + | CULTURE, BLOOD | STAT | 03/07/2018 | | Results for this | | | | 9:12 AM | | procedure are in the | | | | PDT | | results section. | + +--------+ + + + | EXTERNAL LAB: CBC | Routin | 03/07/2018 | | Results for this | | | e | 4:53 AM | | procedure are in the | | | | PDT | | results section. | + +--------+ + + + | MAGNESIUM | Routin | 03/07/2018 | | Results for this | | | e | 4:53 AM | | procedure are in the | | | | PDT | | results section. | + +--------+ + + + | RENAL FUNCTION PANEL | Routin | 03/07/2018 | | Results for this | | | e | 4:53 AM | | procedure are in the | | | | PDT | | results section. | + +--------+ + + + | ECG 12 LEAD | Routin | 03/06/2018 | | Results for this | | | e | 8:38 AM | | procedure are in the | | | | PDT | | results section. | + +--------+ + + + | EXTERNAL LAB: CBC | Routin | 03/06/2018 | | Results for this | | | e | 5:25 AM | | procedure are in the | | | | PDT | | results section. | + +--------+ + + + | MAGNESIUM | Routin | 03/06/2018 | | Results for this | | | e | 5:25 AM | | procedure are in the | | | | PDT | | results section. | + +--------+ + + + | RENAL FUNCTION PANEL | Routin | 03/06/2018 | | Results for this | | | e | 5:25 AM | | procedure are in the | | | | PDT | | results section. | + +--------+ + + + | MRSA NAAT | Timed | 03/05/2018 | | Results for this | | | | 3:33 AM | | procedure are in the | | | | PDT | | results section. | + +--------+ + + + | EXTERNAL LAB: CBC | Routin | 03/05/2018 | | Results for this | | | e | 3:32 AM | | procedure are in the | | | | PDT | | results section. | + +--------+ + + + | CULTURE, BLOOD, 2ND | Timed | 03/05/2018 | | Results for this | | SPECIMEN (NON-ORD) | | 3:32 AM | | procedure are in the | | | | PDT | | results section. | + +--------+ + + + | PHOSPHORUS | Routin | 03/05/2018 | | Results for this | | | e | 3:32 AM | | procedure are in the | | | | PDT | | results section. | + +--------+ + + + | MAGNESIUM | Routin | 03/05/2018 | | Results for this | | | e | 3:32 AM | | procedure are in the | | | | PDT | | results section. | + +--------+ + + + | HEPATIC FUNCTION | Routin | 03/05/2018 | | Results for this | | PANEL | e | 3:32 AM | | procedure are in the | | | | PDT | | results section. | + +--------+ + + + | COMPREHENSIVE | Routin | 03/05/2018 | | Results for this | | METABOLIC PANEL | e | 3:32 AM | | procedure are in the | | | | PDT | | results section. | + +--------+ + + + | CULTURE, BLOOD | Timed | 03/05/2018 | | Results for this | | | | 3:31 AM | | procedure are in the | | | | PDT | | results section. | + +--------+ + + + | CT ABDOMEN PELVIS W | Routin | 03/05/2018 | | Results for this | | CONTRAST | e | 2:26 AM | | procedure are in the | | | | PDT | | results section. | + +--------+ + + + | CELL COUNT, BODY | Routin | 03/05/2018 | | Results for this | | FLUID | e | 1:00 AM | | procedure are in the | | | | PDT | | results section. | + +--------+ + + + | CULTURE, BODY FLUID, | Routin | 03/05/2018 | | Results for this | | STERILE, SMEAR, | e | 1:00 AM | | procedure are in the | | WITH ANAEROBES | | PDT | | results section. | + +--------+ + + + | EXTERNAL LAB: CBC | Routin | 03/04/2018 | | Results for this | | | e | 9:55 PM | | procedure are in the | | | | PDT | | results section. | + +--------+ + + + | LACTIC ACID | Routin | 03/04/2018 | | Results for this | | | e | 9:55 PM | | procedure are in the | | | | PDT | | results section. | + +--------+ + + + | COMPREHENSIVE | Routin | 03/04/2018 | | Results for this | | METABOLIC PANEL | e | 9:55 PM | | procedure are in the | | | | PDT | | results section. | + +--------+ + + + documented in this encounter Results Vancomycin Level (03/09/2018 4:48 AM PDT) + + + + + + | Component | Value | Ref Range | Performed | Pathologist | | | | | At | Signature | + + + + + + | Vancomycin | 23.51Comment: Testing | ug/mL | EXTERNAL | | | Random | performed at [facility];[address] | | LAB | | | | [address];[place], [place] | | | | | | [address] | | | | + + + + + + + + | Specimen | + + | | + + + +---------+ + + | Performing | Address | City/State/Zipcode | Phone Number | | Organization | | | | + +---------+ + + | EXTERNAL LAB | | | | + +---------+ + + Renal Function Panel (03/09/2018 4:48 AM PDT) + + + + + [...] + + + | Anion Gap | 20 | 5 - 20 mmol/L | EXTERNAL [...] | | | | | | at [facility], [address] | | | | | [address], | | | | | | [place] [address] | | | | + + + [...] + +---------+ + + Renal Function Panel (03/08/2018 5:15 AM PDT) + + + + + [...] | | | | | | at [facility], [address] | | | | | [address], | | | | | | [place] [address] | | | | + + [...] +---------+ + + Cell Count, Body Fluid (03/07/2018 10:55 AM PDT) + + | Specimen | + + | | + + + + + | Narrative | Performed At | + + + | FLUID TYPE PERITONEAL FLUID | EXTERNAL LAB | | COLOR COLORLESS | | | APPEARANCE CLEAR RBC'S | | | <88199 TOTAL NUCLEATED | | | CELLS 9 NEUTROPHILS | | | 53 LYMPHOCYTES | | | 10 MONOCYTES/MACROPHAGES | | | 37 CELLS COUNTED 100 | | | Testing performed at [facility];[address];[place] [address] | | + + + + +---------+ + + | Performing | Address | City/State/Zipcode | Phone Number | | Organization | | | | + +---------+ + + | EXTERNAL LAB | | | | + +---------+ + + Culture, Body Fluid, Sterile, Smear, with Anaerobes (03/07/2018 10:55 AM PDT) + + | Specimen | + + | Body fluid sample | | (specimen) | + + + + + | Narrative | Performed At | + + + | Specimen Description PERITONEAL FLUID GRAM | EXTERNAL LAB | | STAIN WBC'S SEEN | | | NO ORGANISMS SEEN | | | STAIN PERFORMED ON CYTOSPIN | | | CULTURE NO GROWTH 4 DAYS | | + + + + +---------+ + + | Performing | Address | City/State/Zipcode | Phone Number | | Organization | | | | + +---------+ + + | EXTERNAL LAB | | | | + +---------+ + + Culture, Blood, 2nd Specimen (03/07/2018 9:52 AM PDT) + + | Specimen | + + | Blood specimen | | (specimen) | + + + + + | Narrative | Performed At | + + + | Specimen Description BLOOD, PERIPHERAL DRAW | EXTERNAL LAB | | SPECIAL REQUESTS LEFT FOREARM CULTURE | | | NO GROWTH 6 DAYS | | + + + + +---------+ + + | Performing | Address | City/State/Zipcode | Phone Number | | Organization | | | | + +---------+ + + | EXTERNAL LAB | | | | + +---------+ + + Culture, Blood (03/07/2018 9:12 AM PDT) + + | Specimen | + + | Blood specimen | | (specimen) | + + + + + | Narrative | Performed At | + + + | Specimen Description BLOOD, PERIPHERAL DRAW | EXTERNAL LAB | | SPECIAL REQUESTS RHAND CULTURE | | | NO GROWTH 6 DAYS | | + + + + +---------+ + + | Performing | Address | City/State/Zipcode | Phone Number | | Organization | | | | + +---------+ + + | EXTERNAL LAB | | | | + +---------+ + + External Lab: CBC (03/07/2018 4:53 AM PDT) + + + + + + | Component | Value | Ref Range | Performed | Pathologist | | | | | At | Signature | + + + + + + | WBC | 10.91 | 3.80 - 11.00 | EXTERNAL | | | | | K/uL | LAB | | + + + + + + | Red Blood | 4.24 | 3.70 - 5.10 | EXTERNAL | | | Cells | | M/uL | LAB | | | Counted | | | | | + + + + + + | Hemoglobin | 12.4 | 11.3 - 15.5 | EXTERNAL | [...] + + + + | RDW-CV | 46.4 | 37 - 53 fl | EXTERNAL [...] + + + | % Segmented | 69.66 | % | EXTERNAL | | | | | | LAB | | | Neutrophils | | | | | + + + + + + | % | 21.25 | % | EXTERNAL | | | [...] + + + | % Basophils | 0.99 | % | EXTERNAL | | | | | | LAB | | + + + + + + | Absolute | 7.60 (H) | 1.90 - 7.40 | EXTERNAL | | | Segmented | | K/uL | LAB | | | Neutrophils | | | | | + + + + + + | Absolute | 2.32 | 1.00 - 3.90 | EXTERNAL | [...] | | | Basophils | performed at [facility], [address] LAB | | | | [address], | | | | | | [place] [address] | | | | + + + + + + + + | Specimen | + + | | + + + +---------+ + + | Performing | Address | City/State/Zipcode | Phone Number | | Organization | | | | + +---------+ + + | EXTERNAL LAB | | | | + +---------+ + + Magnesium (03/07/2018 4:53 AM PDT) + + + + + + | Component | Value | Ref Range | Performed | Pathologist | | | | | At | Signature | + + + + + + | Magnesium | 3.0 (H)Comment: Testing | 1.7 - 2.4 mg/dL | EXTERNAL | | | | performed at [facility], [address] | | LAB | | | | [address], | | | | | | [place] [address] | | | | + + + + + + + + | Specimen | + + | | + + + +---------+ + + | Performing | Address | City/State/Zipcode | Phone Number | | Organization | | | | + +---------+ + + | EXTERNAL LAB | | | | + +---------+ + + Renal Function Panel (03/07/2018 4:53 AM PDT) + + + + + [...] | | | | | | at [facility], [address] | | | | | [address], | | | | | | [place] [address] | | | | + + + [...] + +---------+ + + ECG 12 lead (03/06/2018 8:38 AM PDT) + + + + + + | Component | Value | Ref Range | Performed | Pathologist | | | | | At | Signature | + + + + + + | DIAGNOSIS: | Normal sinus rhythmT | | EXTERNAL | | | | wave abnormality, | | LAB | | | | consider lateral | | | | | | ischemiaProlonged | | | | | | QTAbnormal ECGNo | | | | | | previous ECGs | | | | | | availableConfirmed by | | | | | | RYAN LUGO ([id number]) on | | | | | | 03/06/2018 11:27:37 AM | | | | + + + + + + + + | Specimen | + + | | + + + + + | Narrative | Performed At | + + + | Historically converted procedure from [facility] | EXTERNAL LAB | + + + + +---------+ + + | Performing | Address | City/State/Zipcode | Phone Number | | Organization | | | | + +---------+ + + | EXTERNAL LAB | | | | + +---------+ + + External Lab: CBC (03/06/2018 5:25 AM PDT) + + + + + + | Component | Value | Ref Range | Performed | Pathologist | | | | | At | Signature | + + + + + + | WBC | 9.41 | 3.80 - 11.00 | EXTERNAL | [...] 89.6 | 80.0 - 100.0 fl | EXTERNAL [...] + + + + | Platelet | 336 | 150 - 400 K/uL | EXTERNAL [...] + + + | % Segmented | 68.87 | % | EXTERNAL | | | | | | LAB | | | Neutrophils | | | | | + + + + + + | % | 21.54 | % | EXTERNAL | | | Lymphocytes | | | LAB | | + + + + + + | % Monocytes | 6.49 | % | EXTERNAL | | | | | | LAB | | + + + + + + | % | 2.28 | % | EXTERNAL | | | Eosinophils | | | LAB | | + + + + + + | % Basophils | 0.82 | % | EXTERNAL | | | | | | LAB | | + + + + + + | Absolute | 6.48 | 1.90 - 7.40 | EXTERNAL | | | Segmented | | K/uL | LAB | | | Neutrophils | | | | | + + + + + + | Absolute | 2.03 | 1.00 - 3.90 | EXTERNAL | [...] | | | Basophils | performed at [facility];[address] | LAB | | | | [address];[place] | | | | | | [address] | | | | + + + + + + + + | Specimen | + + | Blood specimen | | (specimen) | + + + +---------+ + + | Performing | Address | City/State/Zipcode | Phone Number | | Organization | | | | + +---------+ + + | EXTERNAL LAB | | | | + +---------+ + + Magnesium (03/06/2018 5:25 AM PDT) + + + + + + | Component | Value | Ref Range | Performed | Pathologist | | | | | At | Signature | + + + + + + | Magnesium | 3.2 (H)Comment: Testing | 1.7 - 2.4 mg/dL | EXTERNAL | | | | performed at [facility], [address] | | LAB | | | | [address], | | | | | | [place] [address] | | | | + + + [...] + +---------+ + + Renal Function Panel (03/06/2018 5:25 AM PDT) + + + + + [...] + + + + | Glucose, | 75 | 65 - 99 mg/dL | EXTERNAL | | | Fasting | | | LAB | | + + + + + + | BUN | 34 (H) | 8 - 25 mg/dL | EXTERNAL | | | | | | LAB | | + + + + + + | Creatinine | 15.0 (H) | 0.50 - 1.00 | EXTERNAL [...] | | | | | | at [facility], [address] | | [address] | | [address], | | | | | | [place] [address] | | | | + + + + + + + + | Specimen | + + | Blood specimen | | (specimen) | + + + +---------+ + + | Performing | Address | City/State/Zipcode | Phone Number | | Organization | | | | + +---------+ + + | EXTERNAL LAB | | | | + +---------+ + + MRSA NAAT (03/05/2018 3:33 AM PDT) + + | Specimen | + + | | + + + + + | Narrative | Performed At | + + + | SOURCE NARES(NOSE) MRSA | EXTERNAL LAB | | PCR NEGATIVE Testing | | | performed at [facility];[address] [place] [address];[place] [address] | | + + + + +---------+ + + | Performing | Address | City/State/Zipcode | Phone Number | | Organization | | | | + +---------+ + + | EXTERNAL LAB | | | | + +---------+ + + Culture, Blood, 2nd Specimen (03/05/2018 3:32 AM PDT) + + | Specimen | + + | Blood specimen | | (specimen) | + + + + + | Narrative | Performed At | + + + | Specimen Description BLOOD SPECIAL | EXTERNAL LAB | | REQUESTS RAC CULTURE | | | NO GROWTH 6 DAYS | | + + + + +---------+ + + | Performing | Address | City/State/Zipcode | Phone Number | | Organization | | | | + +---------+ + + | EXTERNAL LAB | | | | + +---------+ + + External Lab: BLAINE (03/05/2018 3:32 AM PDT) + + + + + + | Component | Value | Ref Range | Performed | Pathologist | | | | | At | Signature | + + + + + + | WBC | 12.57 (H) | 3.80 - 11.00 | EXTERNAL | | | | | K/uL | LAB | | + + + + + + | Red Blood | 3.70 | 3.70 - 5.10 | EXTERNAL | [...] 88.0 | 80.0 - 100.0 fl | EXTERNAL [...] + + + + | RDW-CV | 47.3 | 37 - 53 fl | EXTERNAL [...] + + + + | Segmented | 81 | % | EXTERNAL | | | Neutrophils | | | LAB | | | Manual | | | | | + + + + + + | Lymphocytes | 16 | % | EXTERNAL | | | Manual | | | LAB | | + + + + + + | Monocytes | 3 | % | EXTERNAL | | | Manual | | | LAB | | + + + + + + | Absolute | 10.18 (H) | 1.90 - 7.40 | EXTERNAL | | | Neutrophils | | K/uL | LAB | | + + + + + + | Absolute | 2.01 | 1.00 - 3.90 | EXTERNAL | | | Lymphocytes | | K/uL | LAB | | + + + + + + | Absolute | 0.38 | 0.00 - 0.80 | EXTERNAL | | | Monocytes | | K/uL | LAB | | + + + + + + | RBC | RBC AND PLT MORPHOLOGY | | EXTERNAL | | | Morphology | APPEAR NORMALComment: | | LAB | | | | Testing performed at | | | | | | [facility], [address] | | | | | | [place], [place], [place] | | | | | | [address] | | | | + + + + + + + + | Specimen | + + | Blood specimen | | (specimen) | + + + +---------+ + + | Performing | Address | City/State/Zipcode | Phone Number | | Organization | | | | + +---------+ + + | EXTERNAL LAB | | | | + +---------+ + + Phosphorus (03/05/2018 3:32 AM PDT) + + + + + + | Component | Value | Ref Range | Performed | Pathologist | | | | | At | Signature | + + + + + + | PHOSPHORUS | 5.8 (H)Comment: Testing | 2.3 - 4.8 mg/dL | EXTERNAL | | | | performed at [facility], [address] | | LAB | | | | [address], | | | | | | [place] [address] | | | | + + + + + + + + | Specimen | + + | Blood specimen | | (specimen) | + + + +---------+ + + | Performing | Address | City/State/Zipcode | Phone Number | | Organization | | | | + +---------+ + + | EXTERNAL LAB | | | | + +---------+ + + Magnesium (03/05/2018 3:32 AM PDT) + + + + + [...] | | | | | [place] [address] | | | | + + + + + + + + | Specimen | + + | Blood specimen | | (specimen) | + + + +---------+ + + | Performing | Address | City/State/Zipcode | Phone Number | | Organization | | | | + +---------+ + + | EXTERNAL LAB | | | | + +---------+ + + Hepatic Function Panel (03/05/2018 3:32 AM PDT) + + + + + + | Component | Value | Ref Range | Performed | Pathologist | | | | | At | Signature | + + + + + + | Protein, | 6.4 | 6.3 - 8.2 g/dL | EXTERNAL [...] + + + + | Bilirubin | 0.1 | 0.0 - 0.3 mg/dL | EXTERNAL | | | Direct | | | LAB | | + + + + + + | ALP, | 92 | 35 - 115 U/L | EXTERNAL | | | External | | | LAB | | + + + + + + | AST | 13 | 10 - 45 U/L | EXTERNAL | | | | | | LAB | | + + + + + + | ALT | 10Comment: Testing | 10 - 65 U/L | EXTERNAL | | | | performed at [facility], [address] | | LAB | | | | [address] [facility], | | | | | | [place] [address] | | | | + + + [...] + +---------+ + + Comprehensive Metabolic Panel (03/05/2018 3:32 AM PDT) + + + + + [...] + + + + | Glucose, | 131 (H) | 65 [...] + + + + | ALP, | 94 | 35 - 115 U/L | EXTERNAL | | | External | | | LAB | | + + + + + + | AST | 12 | 10 - 45 U/L | EXTERNAL | | | | | | LAB | | + + + + + + | ALT | 10 | 10 - 65 U/L | EXTERNAL [...] | | | | | | [place] [address] | | | | + + + + + + + + | Specimen | + + | Blood specimen | | (specimen) | + + + +---------+ + + | Performing | Address | City/State/Zipcode | Phone Number | | Organization | | | | + +---------+ + + | EXTERNAL LAB | | | | + +---------+ + + Culture, Blood (03/05/2018 3:31 AM PDT) + + | Specimen | + + | Blood specimen | | (specimen) | + + + + + | Narrative | Performed At | + + + | Specimen Description BLOOD SPECIAL | EXTERNAL LAB | | REQUESTS L HAND GRAM STAIN | | | GRAM POSITIVE COCCI | | | SEEN IN AEROBIC BOTTLE | | | SMEAR RESULTS CALLED TO AND READ | | | BACK BY: JOYA Hutson | | | AT 1102 ON 03/06/18 PH CULTURE | | | STAPHYLOCOCCUS SPECIES, COAGULASE NEGATIVEAbnormal | | | GROWTH IN ONE OF TWO | | | BOTTLESAbnormal | | | TIME TO DETECTION: | | | 1.13 DAYS | | | POSSIBLE CONTAMINANT, CLINICAL CORRELATION REQUIRED. | | + + + + +---------+ + + | Performing | Address | City/State/Zipcode | Phone Number | | Organization | | | | + +---------+ + + | EXTERNAL LAB | | | | + +---------+ + + CT Abdomen Pelvis w Contrast (03/05/2018 2:26 AM PDT) + + | Specimen | + + | | + + + + + | Impressions | Performed At | + + + | 1. Possible fatty liver. 2. Bilateral renal atrophy again seen. | | | Peritoneal dialysis catheter in the pelvis. 3. Masslike area in the | | | right adnexa measuring 4.9 x 3.7 cm. This is similar compared with the | | | prior CT. 4. Trace amount of free fluid. No free air. 5. Colonic | | | diverticula. No definite diverticulitis. 6. Appendix appears normal. | | | RADIA Electronically signed by Lukas Dean MD on Mar 05 2018 | | | 3:51AM Referring Provider Line: [phone] ID: [id number] | | + + + + + + | Narrative | Performed At | + + + | EXAM: CT ABDOMEN AND PELVIS EXAM DATE: 03/05/2018 02:27 AM. | | | CLINICAL HISTORY: Abdominal pain. COMPARISONS: 09/07/2017. | | | TECHNIQUE: Routine helical CT imaging was performed through the | | | abdomen and pelvis. IV contrast: Nonionic. Enteric contrast: No. | | | Reconstructions: Coronal and sagittal. [...] FINDINGS: Lung Bases: Unremarkable. | | | Liver: Possible fatty infiltration. Gallbladder/Bile Ducts: | | | Unremarkable. Spleen: Normal. Pancreas: Normal. Adrenal | | | Glands: Right adrenal appears normal. Left adrenal adenoma. | | | Kidneys: Moderate bilateral atrophy. No masses or hydronephrosis. | | | Peritoneal Cavity/Bowel: Colonic diverticula with no definite evidence | | | of diverticulitis. No bowel obstruction seen. Trace amount of free | | | fluid in the pelvis. No free air. No lymphadenopathy. Peritoneal | | | dialysis catheter again seen in the pelvis. Appendix appears normal. | | | Pelvic Organs: Masslike area again seen in the right adnexa | | | measuring 4.9 x 3.7 cm. Visualized pelvic organs are otherwise | | | unremarkable. Vasculature: No aneurysms or other significant | | | abnormality. Bones: No significant abnormality. Other: None. | | | | | + + + + + | Procedure Note | + + | Endy, Rad Conversion - 06/23/2019 11:55 AM PDT EXAM:CT ABDOMEN AND PELVIS EXAM DATE: | | 03/05/2018 02:27 AM. CLINICAL HISTORY: Abdominal pain. COMPARISONS: 09/07/2017. | | TECHNIQUE: Routine helical CT imaging was performed through the abdomen and pelvis. IV | | contrast: Nonionic. Enteric contrast: No. Reconstructions: Coronal and sagittal. In | | accordance with CT protocol optimization, one or more of the following dose reduction | | techniques were utilized for this exam: automated exposure control, adjustment of mA | | and/or KV based on patient size, or use of iterative reconstructive technique. | | FINDINGS:Lung Bases: Unremarkable. Liver: Possible fatty infiltration. Gallbladder/Bile | | Ducts: Unremarkable. Spleen: Normal. Pancreas: Normal. Adrenal Glands: Right adrenal | | appears normal. Left adrenal adenoma. Kidneys: Moderate bilateral atrophy. No masses or | | hydronephrosis. Peritoneal Cavity/Bowel: Colonic diverticula with no definite evidence | | of diverticulitis. No bowel obstruction seen. Trace amount of free fluid in the pelvis. | | No free air. No lymphadenopathy. Peritoneal dialysis catheter again seen in the pelvis. | | Appendix appears normal. Pelvic Organs: Masslike area again seen in the right adnexa | | measuring 4.9 x 3.7 cm. Visualized pelvic organs are otherwise unremarkable. | | Vasculature: No aneurysms or other significant abnormality. Bones: No significant | | abnormality. Other: None. IMPRESSION: 1. Possible fatty liver.2. Bilateral renal | | atrophy again seen. Peritoneal dialysis catheter in the pelvis.3. Masslike area in the | | right adnexa measuring 4.9 x 3.7 cm. This is similar compared with the prior CT.4. Trace | | amount of free fluid. No free air.5. Colonic diverticula. No definite diverticulitis.6. | | Appendix appears normal. RADIA Electronically signed by Lukas Dean MD on Mar 05 2018 | | 3:51AM Referring Provider Line: [phone] ID: [id number] | |Pancreas: Normal. | | | |Adrenal Glands: Right adrenal appears normal. Left adrenal adenoma. | | | |Kidneys: Moderate bilateral atrophy. No masses or hydronephrosis. | | | |Peritoneal Cavity/Bowel: Colonic diverticula with no definite evidence of diverticulitis. N o bowel obstruction seen. Trace amount of free fluid in the pelvis. No free air. No lymphade nopathy. Peritoneal dialysis catheter again seen in the pelvis. | |Appendix appears normal. | | | |Pelvic Organs: [...] 05 2018 3:51AM Referring Provider Line: [phone] ID: [id number] | + + Culture, Body Fluid, Sterile, Smear, with Anaerobes (03/05/2018 1:00 AM PDT) + + | Specimen | [...] +---------+ + + Cell Count, Body Fluid (03/05/2018 1:00 AM PDT) + + | Specimen | + + | | + + + + + | Narrative | Performed At | + + + | FLUID TYPE PERITONEAL FLUID | EXTERNAL LAB | | COLOR YELLOW | | | APPEARANCE HAZY RBC'S | | | <99846 TOTAL | | | NUCLEATED CELLS 1685 NEUTROPHILS | | | 56 LYMPHOCYTES | | | 31 MONOCYTES/MACROPHAGES | | | 13 CELLS COUNTED | | | 100 Testing performed at [facility];[address] [place] [address];[place], [place] | | | [address] | | + + + + +---------+ + + | Performing | Address | City/State/Zipcode | Phone Number | | Organization | | | | + +---------+ + + | EXTERNAL LAB | | | | + +---------+ + + External Lab: CBC (03/04/2018 9:55 PM PDT) + + + + + + | Component | Value | Ref Range | Performed | Pathologist | | | | | At | Signature | + + + + + + | WBC | 14.92 (H) | 3.80 - 11.00 | EXTERNAL [...] + + + + | Hematocrit, | 39.4 | 34.0 - 46.0 % | EXTERNAL | | | POC | | | LAB | | + + + + + + | MCV | 87.4 | 80.0 - 100.0 fl | EXTERNAL | | | | | | LAB | | + + + + + + | MCH | 28.2 | 27.0 - 34.0 pg | EXTERNAL [...] + + + + | Platelet | 414 (H) | 150 - 400 [...] + + + | % Segmented | 88.36 | % | EXTERNAL | | | | | | LAB | | | Neutrophils | | | | | + + + + + + | % | 8.25 | % | EXTERNAL | | | Lymphocytes | | | LAB | | + + + + + + | % Monocytes | 2.59 | % | EXTERNAL | | | | | | LAB | | + + + + + + | % | 0.09 | % | EXTERNAL | | | Eosinophils | | | LAB | | + + + + + + | % Basophils | 0.71 | % | EXTERNAL | | | | | | LAB | | + + + + + + | Absolute | 13.18 (H) | 1.90 - 7.40 | EXTERNAL | | | Segmented | | K/uL | LAB | | | Neutrophils | | | | | + + + + + + | Absolute | 1.23 | 1.00 - 3.90 | EXTERNAL | | | Lymphocytes | | K/uL | LAB | | + + + + + + | Absolute | 0.39 | 0.00 - 0.80 | EXTERNAL | | | Monocytes | | K/uL | LAB | | + + + + + + | Absolute | 0.01 | 0.00 - 0.50 | EXTERNAL | | | Eosinophils | | K/uL | LAB | | + + + + + + | Absolute | 0.11 (H) | 0.00 - 0.10 | EXTERNAL [...] | | | | | performed at [facility];[address] | | | | | | [address];[place] | | | | | | [id number] | | | | + + + + + + + + | Specimen | + + | Blood specimen | | (specimen) | + + + +---------+ + + | Performing | Address | City/State/Zipcode | Phone Number | | Organization | | | | + +---------+ + + | EXTERNAL LAB | | | | + +---------+ + + Lactic Acid (03/04/2018 9:55 PM PDT) + + + + + + | Component | Value | Ref Range | Performed | Pathologist | | | | | At | Signature | + + + + + + | Lactate | 1.7Comment: Testing | 0.4 - 2.0 | EXTERNAL | | | | performed at [facility];888 | mmol/L | LAB | | | | Mak[address] Agarwal;[place], [place] | | | | | | [id number] | | | | + + + [...] + +---------+ + + Comprehensive Metabolic Panel (03/04/2018 9:55 PM PDT) + + + + + + | Component | Value | Ref Range | Performed | Pathologist | | | | | At | Signature | + + + + + + | Na | 139 | 135 - 145 | EXTERNAL | | | | | mmol/L | LAB | | + + + + + + | K | 3.8 | 3.5 - 4.9 | EXTERNAL | | | | | mmol/L | LAB | | + + + + + + | Cl | 97 (L) | 99 - 109 mmol/L | EXTERNAL | | | | | | LAB | | + + + + + + | CO2 | 30 | 23 - 32 mmol/L | EXTERNAL | | | | | | LAB | | + + + + + + | Anion Gap | 16 | 5 - 20 mmol/L | EXTERNAL | | | | | | LAB | | + + + + + + | Glucose, | 96 | 65 - 99 mg/dL | EXTERNAL [...] + + + + | ALP, | 106 | 35 - 115 U/L | EXTERNAL | | | External | | | LAB | | + + + + + + | AST | 13 | 10 - 45 U/L | EXTERNAL [...] | | | | | | at [facility];[address] [place] [address] | | | | | | [facility];[place] [address] | | | | + + + [...] nausea, unspecified vomiting type | + + documented in this encounter
--- OUTSIDE RECORDS SUMMARY | ~2020-04-05 | XMS | Encounter Summary ---
Demographics + + + | Address | [address] | | | [place] [address] | + + + | Home Phone | | + + + | Preferred Language | Unknown | + + + | Marital Status | | + + + | Church Affiliation | Unknown | + + + | Race | Unknown | + + + | Ethnic Group | Unknown | + + + Author + + + | Author | [facility] | | | and [place] | + + + | Organization | [facility] | | | and [place] | + + + | Address | Unknown | + + + | Phone | Unavailable | + + + Support + + + + + | Name | Relationship | Address | Phone | + + + + + | Lyubov Smalls | ECON | [place], [place] | | | | | [address] | | + + + + + | Lydia Palm | ECON | [place], [place] | | | | | [address] | | + + + + + | melinda METZ" | ECON | [place], [place] | | | [place]ba | | [address] | | + + + + + | Jose C Oconnor | ECON | [address] | | | | | [place] | | | | | [address] | | + + + + + Care Team Providers + +------+ + | Care Cyanide Furnace Operator Name | Role | Phone | + +------+ + | Juan F Whitley DO | PCP | | + +------+ + Encounter Details +--------+ + + + + | Date | Type | Department | Care Team | Description | +--------+ + + + + | 05/06/ | Hospital | [facility] | Qasim Pederson MD | | | 2019 | Encounter | [facility] | [address] | | | | | INTENSIVE CARE UNIT | [place], [place] | | | | | [address] | [address] | | | | | [place], [place] | | | | | | [address] | | | | | | [phone] | | | +--------+ + + + [...] 05/06/191557 Date of Service: 05/06/191549 Status: Signed Supervisor Sterile Processing: Neal Dietz RN (Registered Nurse) Pt discharged [...] | | | QUALITATIVE | performed at [facility];[address] | | LAB | | | | [address];[place], [place] | | | | | | [address] | | | | + + + [...] | | | | | | MDRD IDMD traceable | | | | | | equation.Testing | | | | | | performed at [facility] | | | | | | [facility];[place], [place] | | | | | | [address] | | | | + + + [...]
--- OUTSIDE RECORDS SUMMARY | ~2020-04-05 | XMS | Encounter Summary ---
Demographics + + + | Address | [address] | | | [place] [address] | + + + | Home Phone [...] [place], [place] | | | | | [address] | | + + + + + | Lydia Palm | ECON | [place], [place] | | | | | [address] | | + + + + + | melinda METZ" | ECON | [place], [place] | | | [place]ba | | [address] | | + + + + + | Jose C Reeves | ECON | [address] | | | | | [place] | | | | | [address] | | + + + + + Care Team Providers + +------+ + | Care Veneer Puller Name | Role | Phone | + +------+ + | Juan F Whitley DO | PCP | | + +------+ + Encounter Details +--------+ + + + + | Date | Type | Department | Care Team | Description | +--------+ + + + + | 04/03/ | Orders Only | [facility] | Alireza Ordoñez | | | 2017 | | ASSOCIATED | MD [place] [address] | | | | | [facility] | [address] | | | | | [address] | [place] [address] | | | | | [address] | [phone] | | | | | [place] [address] | | | | | | [phone] | | | +--------+ + + + [...] + +--------+ + + + | PATHOLOGY CONSULTING GROUP ANALYST | Routin | 04/03/2018 | | Results for this | | REQUEST | e | 12:30 PM | | procedure are in the | | | | PDT | | results section. | + +--------+ + + + documented in this encounter Results Pathology Lunchroom Monitor Request (04/03/2018 12:30 PM PDT) + + | Specimen | + + | | + + + + + | Narrative | Performed At | + + + | ORDERING PHYSICIAN: Vandana Krishnan PATIENT NAME: | EXTERNAL LAB | | RAMONA REEVES GENDER: F : 1980 Prior History: | | | DATE CASE NUM ADEQUACY DIAGNOSIS HPV | | | RESULTS PHYSICIAN The 5 most recent reports are included. This | | | history does not include results of pap smears performed at another | | | laboratory. SPECIMEN(S): Cervical/ Endocervical CLINICAL HISTORY: | | | Routine Pap Smear, LMP 03/22/2018 CYTOLOGIC INTERPRETATION: Negative | | | for intraepithelial lesion or malignancy. MOLECULAR PATHOLOGY | | | RESULTS: HPV High Risk - Negative TECHNICAL NOTES: To improve | | | disease detection, this slide is screened using automated intelligence | | | technology. This specimen was received in a vial of liquid-based | | | fixative and was processed using thin layer Pap technology. SPECIMEN | | | ADEQUACY: Satisfactory for evaluation. Endocervical and/or | | | metaplastic cells present. ADDITIONAL NOTES: The Pap smear is a | | | screening test designed to aid in the detection of premalignant and | | | malignant conditions of the uterine cervix. It is not a diagnostic | | | procedure and should not be used as the sole means of detecting | | | cervical cancer. Both false-positive and false-negative reports do | | | occur. This document contains private and confidential health | | | information by state and federal law. If you have received in error, | | | please call [phone]. ADDITIONAL NOTES.: The Aptima HPV | | | assay is an in vitro nucleic acid amplification test for the | | | qualitative detection of E6/E7 viral messenger RNA (mRNA) from Human | | | Papillomavirus (HPV) types 16, 18, 31, 33, 35, 39, 45, 51, 52, 56, | | | 58, 59, 66, and 68 in cervical specimens using the PANTHER System. | | | Test results should be considered in conjunction with other | | | laboratory and clinical findings. Detection of high-risk HPV mRNA is | | | dependent on the number of copies present in the specimen and may be | | | affected by specimen collection methods, patient factors, stage of | | | infection and the presence of interfering substances. If clinically | | | indicated, recollection with repeat co-testing is recommended for | | | unsatisfactory cytology results. Specimens collected using | | | ThinPrep PreservCyt Pap solution and processed on the T-2000 ThinPrep | | | Pap Processor are FDA-approved. SurePath Pap specimen collections and | | | ThinPrep aliquots obtained post processing on the T-5000 Pap | | | Processor are not FDA-approved for the Aptima HPV assay but | | | performance characteristics have been validated at the performing | | | laboratory. [facility] is certified under CLIA as qualified | | | to perform high complexity clinical laboratory testing. This test is | | | used for clinical purposes. It should not be regarded as | | | investigational or for research. PERFORMING LABORATORY: Technical | | | preparation was performed by [facility], [address] [place] [address] | | | [place] [address] (Volunteer Patient Representative: Jairo Mccauley D.O.; | | | CLIA#: [id number]). Diagnostician: Makayla BAUER (ASC) | | | Oil Boiler Electronically Signed 04/10/2018 | | + + + + +---------+ + + | Performing | Address | City/State/Zipcode | Phone Number | | Organization | | | | + +---------+ + + | EXTERNAL LAB | | | | + +---------+ + + documented in this encounter Visit Diagnoses Not on filedocumented in this encounter
--- OUTSIDE RECORDS SUMMARY | ~2020-04-05 | XMS | Encounter Summary ---
Demographics + + + | Address | [address] | | | [place] [address] | + + + | Home Phone | | + + + | Preferred Language | Unknown | + + + | Marital Status | | + + + | Worship Affiliation | Unknown | + + + | Race | Unknown | + + + | Ethnic Group | Unknown | + + + Author + + + | Author | [facility] | | | and [place] | + + + | Organization | [facility] | | | and [place] | + + + | Address | Unknown | + + + | Phone | Unavailable | + + + Support + + + + + | Name | Relationship | Address | Phone | + + + + + | Lyubov Smalls | ECON | [place], [place] | | | | | [address] | | + + + + + | Lydia Palm | ECON | [place], [place] | | | | | [address] | | + + + + + | melinda METZ" | ECON | [place], [place] | | | [place] | | [address] | | + + + + + | Jose C Oconnor | ECON | [address] | | | | | [place] | | | | | [address] | | + + + + + Care Team Providers + +------+ + | Care Business Process Consultant Name | Role | Phone | [...] + + | 12/22/ | Telephone | [facility] | Qasim Pederson MD | Other (fistula | | 2020 | | VASCULAR SURGERY | [address] | report ) | | | | [address] | [address] | | | | | [place] | [address] | | | | | [address] | | | | | | [phone] | | | +--------+ + + + [...]
--- OUTSIDE RECORDS SUMMARY | ~2020-04-05 | XMS | Encounter Summary ---
Demographics + + + | Address | [address] | | | [place] [address] | + + + | Home Phone | | + + + | Preferred Language | Unknown | + + + | Marital Status | | + + + | Rastafari Affiliation | Unknown | + + + | Race | Unknown | + + + | Ethnic Group | Unknown | + + + Author + + + | Author | [facility] | | | and [place] | + + + | Organization | [facility] | | | and [place] | + + + | Address | Unknown | + + + | Phone | Unavailable | + + + Support + + + + + | Name | Relationship | Address | Phone | + + + + + | Lyubov Smalls | ECON | [place], [place] | | | | | [address] | | + + + + + | Lydia Palm | ECON | [place], [place] | | | | | [address] | | + + + + + | melinda METZ" | ECON | [place], [place] | | | [place] | | [address] | | + + + + + | Jose C Oconnor | ECON | [address] | | | | | [place] | | | | | [address] | | + + + + + Care Team Providers + +------+ + | Care Radiologist Name | Role | Phone | + [...] + + | 11/08/ | Telephone | [facility] | Demar Ponce, | Follow-up(Procedure) | | 2019 | | INTERVENTIONAL | RN | | | | | RADIOLOGY [address] | | | | | | [address] | | | | | | [place], [place] | | | | | | [address] | | | | | | [phone] | | | +--------+ + + + [...]
--- OUTSIDE RECORDS SUMMARY | ~2020-04-05 | XMS | Encounter Summary ---
Demographics + + + | Address | [address] | | | [place] [address] | + + + | Home Phone | | + + + | Preferred Language | Unknown | + + + | Marital Status | | + + + | Temple Affiliation | Unknown | + + + [...] [place], [place] | | | | | [address] | | + + + + + | Lydia Palm | ECON | [place], [place] | | | | | [address] | | + + + + + | melinda METZ" | ECON | [place], [place] | | | [place] | | [address] | | + + + + + | Jose C Oconnor | ECON | [address] | | | | | [place] | | | | | [address] | | + + + + + Care Team Providers + +------+ + | Care Hot Knife Foxing Cutter Name | Role | Phone | + [...] | | | | ([facility]) Wound | | | | | | [...] + + | 07/08/ | Anesthesia | [facility] | Claudia Cobb | | | 2019 | Event | [facility] | K, BRYOLOGIST [address] | | | | | [address] [place], [place] | | | | | [facility] | [id number] | | | | | [place], [place] | | | | | | [address] | | | | | | [phone] | | | +--------+ + + + + Anesthesia Record + + + + + | Procedure Name | Responsible | Anesthesia Start | Anesthesia Stop Time | | | Anesthesiologist | Time | | + + + + + | LEFT AXILLA WOUND | Claudia Cobb, | 07/08/19 1147 | 07/08/19 1302 | | DEBRIDEMENT, WASHOUT | BRYOLOGIST | | | | AND POSSIBLE WOUND [...] Periph | 02/23/19; 1716; Right; Medial; | 02/23/19 1716 by | 09/08/19901 by | | rissa | Forearm; roar-rfm-[id number] catheter | Brandin Gray RN | Fartun [...] | | | procedure documentation); Mask | BRYOLOGIST | BRYOLOGIST | | | Ventilation: N/A; Attempts: 1; [...] arm; wound vac; expected removal | Sally Peers, | Merary Springer RN | | Site [...] this | | | e | 12:14 PM | | procedure are in the | | | | PDT | | results section. | + +--------+ + + + documented in this encounter Results Anesthesia Airway Note (07/08/2019 12:14 PM PDT) + + + | Narrative [...] + | Claudia Cobb CRNA - 07/08/2019 12:14 PM PDT Anesthesia Airway | | Placement07/08/2019 11:54Preprocedure check: patient identified, suction, oxygen, airway | | equipment checked, airway assessed and patient reassessment prior to inductionMask | | ventilation: N/AAttempts: 1Airway type: laryngeal maskSize: 4Cuffed: cuffedRoute, | | reference point: center of mouthTrauma: noneTube placement verification: bilateral chest | | rise, equal bilateral breath sounds and carbon dioxide detectionPerforming provider: | | Jame Kelley see intraoperative grid for any additional medication [...] over 30 Minutes, Prior | | PM PDT | | | | | to [...] PRN, Starting Nina 07/08/19 at | | AM PDT | | | | | 1157, Anesthesia Intra-op | | | | | | + +-------+ +------+---+---+ +---+---+ | | | +---+---+ + +-------+ +-------+---+---+ | ePHEDrine in saline 5 mg/mL IV | Given | 07/08/20 | 15 mg | | | | syringe Intravenous, PRN, | | 19 12:03 | | | | | Starting Nina 07/08/19 at 1203, | | PM PDT | | | | | Anesthesia Intra-op | | | | | | + +-------+ +-------+---+---+ +---+---+ | | | +---+---+ + +-------+ +--------+---+---+ | fentaNYL (PF) injection | Given | 07/08/20 | 50 mcg | | | | Intravenous, PRN, Starting Nina | | 19 12:44 | | | | | 07/08/19 at 1208, Anesthesia | | PM PDT | | | | | Intra-op | | | | | | + +-------+ +--------+---+---+ +-------+ +--------+---+---+ | Given | 07/08/20 | 25 mcg | | | | | 19 12:17 | | | | | | PM PDT | | | | +-------+ +--------+---+---+ | Given | 07/08/20 | 25 mcg | | | | | 19 12:16 | | | | | | PM PDT | | | | +-------+ +--------+---+---+ +---+---+ | | | +---+---+ + +-------+ +--------+---+---+ | glycopyrrolate (ROBINUL) | Given | 07/08/20 | 0.1 mg | | | | injection Intravenous, PRN, | | 19 12:16 | | | | | Starting Nina 07/08/19 at 1216, | | PM PDT | | | | | Anesthesia Intra-op | | | | | | + +-------+ +--------+---+---+ +---+---+ | | | +---+---+ + +-------+ +-------+---+---+ | lidocaine (PF) 2% injection | Given | 07/08/20 | 50 mg | | | | Intravenous, PRN, Starting Fri | | 19 11:53 | | | | | 07/08/19 at 1153, Anesthesia | | AM PDT | | | | | Intra-op | | | | | | + +-------+ +-------+---+---+ +---+---+ | | | +---+---+ + +-------+ +------+---+---+ | ondansetron (ZOFRAN) injection | Given | 07/08/20 | 4 mg | | | | Intravenous, PRN, Starting Nina | | 19 12:42 | | | | | 07/08/19 at 1242, Anesthesia | | PM PDT | | | | | Intra-op | | | | | | + +-------+ +------+---+---+ +---+---+ | | | +---+---+ + +-------+ +--------+---+---+ | phenylephrine (PONCHO-SYNEPHRINE, | Given | 07/08/20 | 50 mcg | | | | VAZCULEP) 10 mg per mL injection | | 19 12:19 | | | | | Intravenous, PRN, Starting Nina | | PM PDT | | | | | 07/08/19 at 1156, Anesthesia | | | | | | | Intra-op | | | | | | + +-------+ +--------+---+---+ +-------+ +---------+---+---+ | Given | 07/08/20 | 100 mcg | | | | | 19 12:10 | | | | | | PM PDT | | | | +-------+ +---------+---+---+ | Given | 07/08/20 | 200 mcg | | | | | 19 12:00 | | | | | | PM PDT | | | | +-------+ +---------+---+---+ +---+---+ | | | +---+---+ + +-------+ +-------+---+---+ | propofol (DIPRIVAN) injection | Given | 07/08/20 | 20 mg | | | | Intravenous, PRN, Starting Nina | | 19 12:47 | | | | | 07/08/19 at 1153, Anesthesia | | PM PDT | | | | | Intra-op | | | | | | + +-------+ +-------+---+---+ +-------+ +--------+---+---+ | Given | 07/08/20 | 20 mg | | | | | 19 12:45 | | | | | | PM PDT | | | | +-------+ +--------+---+---+ | Given | 07/08/20 | 140 mg | | | | | 19 11:53 | | | | | | AM PDT | | | | +-------+ +--------+---+---+ +---+---+ | | | +---+---+ + +-------+ +---------+---+---+ | scopolamine (TRANSDERM-SCOP) 1 | Given | 07/08/20 | 1 patch | | | | mg/3 days Transdermal, PRN, | | 19 11:49 | | | | | Starting [facility] 07/08/19 at 1149, | | AM PDT | | | | | Anesthesia Intra-op | | | | | | + +-------+ +---------+---+---+ +---+---+ | | | +---+---+ + +---------+ +---+---+---+ | sodium chloride 0.9% (NS) | New Bag | 07/08/20 | | | | | infusion Intravenous, CONTINUOUS | | 19 11:40 | | | | | PRN, Starting [facility] 07/08/19 at | | AM PDT | | | | | 1140, Anesthesia Intra-op | | | | | | + +---------+ +---+---+---+ +---+---+ | | | +---+---+ + +-------+ +-------+---+---+ | vasopressin (VASOSTRICT) | Given | 07/08/20 | 0.5 | | | | injection PRN, Starting Nina | | 19 12:19 | Units | | | | 07/08/19 at 1210, Anesthesia | | PM PDT | | | | | Intra-op | | | | | | + +-------+ +-------+---+---+ +-------+ +---------+---+---+ | Given | 07/08/20 | 1 Units | | | | | 19 12:10 | | | | | | PM PDT | | | | +-------+ +---------+---+---+ +---+---+ | | | +---+---+ documented in this encounter
--- OUTSIDE RECORDS SUMMARY | ~2020-04-05 | XMS | Encounter Summary ---
Demographics + + + | Address | [address] | | | [place] [address] | + + + | Home Phone [...] [place], [place] | | | | | [address] | | + + + + + | Lydia Palm | ECON | [place], [place] | | | | | [address] | | + + + + + | melinda METZ" | ECON | [place], [place] | | | [place] | | [address] | | + + + + + | Jose C Oconnor | ECON | [address] | | | | | [place] | | | | | [address] | | + + + + + Care Team Providers + +------+ + | Care Business Ethics Professor Name | Role | Phone | [...] + + | 08/10/ | Clinical | [facility] | Nidhi Whitaker, | ESRD on dialysis | | 2019 | Support | VASCULAR SURGERY | RN | (HCC) (Primary Dx) | | | | [address] | | | | | | [place] | | | | | | [address] | | | | | | [phone] | | | +--------+ + + + [...] + documented as of this encounter Progress Nidih Zuniga RN - 08/10/2019 1:00 PM PDTPatient [...]
--- OUTSIDE RECORDS SUMMARY | ~2020-04-05 | XMS | Encounter Summary ---
Demographics + + + | Address | [address] | | | [place] [address] | + + + | Home Phone | | + + + | Preferred Language | Unknown | + + + | Marital Status | | + + + | Mormon Affiliation | Unknown | + + + [...] [place], [place] | | | | | [address] | | + + + + + | Lydia Palm | ECON | [place], [place] | | | | | [address] | | + + + + + | melinda METZ" | ECON | [place], [place] | | | [place] | | [address] | | + + + + + | Jose C Oconnor | ECON | [address] | | | | | [place] | | | | | [address] | | + + + + + Care Team Providers + +------+ + | Care Marketing Designer Name | Role | Phone | [...] | | | | | | | ([facility]) Wound | | | | | | [...] + + | 07/08/ | Hospital | [facility] | PoQasim de la rosa MD | ESRD on dialysis | | 2019 | Encounter | [facility] | [address] | ([facility]); Wound | | | | CARE FLO[address] | [address] [place], [place] | infection after | | | | [address] | [address] | surgery | | | | [place], [place] | | | | | | [address] | | | | | | [phone] | | | +--------+ + + + [...] chamber of the vacuum Date Last Reviewed: 12/11/201619992197-5871 [employer]. [address] [place] [address]. All righ ts reserved. This information is [...] Anexsia, Lorcet, Lorcet HD, Lorcet Plus, Lortab, Sturgis, Verdrocet, Vicodin, Vi codin ES, Vicodin HP, [...] information carefully each time. Talk to your logistics research engineer regarding the use of this medicine in children. Special care may be needed. What side effects may I notice from receiving this medicine? Side effects that you should report to your doctor or health rn progressive care as soon as p ossible: allergic reactions [...] attention (report to your doctor or health rn progressive care if they continue or are bothersome): constipation [...] to an official disposal site. Contact the [facility] at [phone] or your [facility] government to find a site. If you [...] this medicine? Tell your doctor or health rn progressive care if your pain does not go away, [...] days, call your doctor or health care priscila norris. Your mouth may get dry. Chewing sugarless [...] behind the other ear. Talk to your logistics research engineer regarding the use of this medicine in children. Special care may be needed. What side effects may I notice from receiving this medicine? Side effects that you should report to your doctor or health rn progressive care as soon as p ossible: agitation, nervousness, confusion blurred vision and other eye problems dizziness, drowsiness eye pain or redness in the whites of the eye hallucinations pain or difficulty passing urine skin rash, itching vomiting Side effects that usually do not require medical attention (report to your doctor or health rn progressive care if they continue or are bothersome): headache [...] resonance imaging (MRI) procedure, tell your MRI technrj garcia if you have this patch on your [...] | | | | 11:32 AM | ([facility]) Wound | | | | | PDT [...] [facility] | | | | performed at [facility];[address] | | LABORATORY | | | | [address];[place], [place] | | | | | | [address] | | | | + + + + + + + + | Specimen | + + | Blood | + + + + + + + | Performing | Address | City/State/Zipcode | Phone Number | | Organization | | | | + + + + + | [facility] | [address] | [place] [address] | [phone] | + + + + + documented [...] | | | | | | longer, wsrevj-ryh-igzfo use of | | | | | [...] | | | | | | | vlfddv-zjh-vrjzj use of at least | | | [...]
--- OUTSIDE RECORDS SUMMARY | ~2020-04-05 | XMS | Encounter Summary ---
Demographics + + + | Address | [address] | | | [place] [address] | + + + | Home Phone | | + + + | Preferred Language | Unknown | + + + | Marital Status | | + + + | Sikh Affiliation | Unknown | + + + [...] [place], [place] | | | | | [address] | | + + + + + | Lydia Palm | ECON | [place], [place] | | | | | [address] | | + + + + + | melinda METZ" | ECON | [place], [place] | | | [place] | | [address] | | + + + + + | Jose C Oconnor | ECON | [address] | | | | | [place] | | | | | [address] | | + + + + + Care Team Providers + +------+ + | Care Child Nutrition Assistant Name | Role | Phone | [...] [place] | | | | | | ([facility]) | [address] | | | | | | Procedures | [place] | | | | | | VAS Arm | [address] | | | | | | Mapping For | Phone: | | | | | | Dialysis | [phone] | | | | | | Right | Fax: | | | | | | | [phone] | | +--------+--------+ + + + + Encounter Details +--------+ + + + + | Date | Type | Department | Care Team | Description | +--------+ + + + + | 12/23/ | Hospital | [facility] | | ESRD on dialysis | | 2020 | Encounter | VASCULAR SURGERY | | (HCC) | | | | ULTRASOUND [address] | | | | [address] | | | | | | [place], [place] | | | | | | [address] | | | | | | [phone] | | | +--------+ + + + [...] tablets by | 270 | 0 | 10//20 | | | carbonate (RENVELA) | mouth 2 times daily | tablet | | 19 | | | 800 mg tablet | (with breakfast & | | | | | | | lunch). | | | | | + + + +---------+ + + | sevelamer | Take 3 tablets by | 270 | 0 | /30/20 | | | carbonate (RENVELA) | mouth [...] +--------+ + + + | VAS ARM MAPPING FOR | Routin | 12/23/2019 | ESRD on dialysis | Results for this | | DIALYSIS RIGHT | e | 4:09 PM | (HCC) | procedure are in the | | | | PST | | results section. | + +--------+ + + + documented in this encounter Results VAS Arm Mapping For [...] Bianka Joshua David | | Sign Date/Time: 12/24/2019 9:09 AM [...]
--- OUTSIDE RECORDS SUMMARY | ~2020-04-05 | XMS | Encounter Summary ---
Demographics + + + | Address | [address] | | | [place] [address] | + + + | Home Phone [...] [place], [place] | | | | | [address] | | + + + + + | Lydia Palm | ECON | [place], [place] | | | | | [address] | | + + + + + | melinda METZ" | ECON | [place], [place] | | | reba | | [address] | | + + + + + | Jose C Oconnor | ECON | [address] [place] | | | | | [place] | | | | | [address] | | + + + + + Care Team Providers + +------+ + | Care Director Of Math Name | Role | Phone | + [...] + + | 01/24/ | Office | [facility] | Kylie Alves DNP | ESRD (end stage | | 2020 | Visit | VASCULAR SURGERY | [address] | renal disease) on | | | | [address] | [place] | dialysis (HCC) | | | | [place], [place] | [address] | (Primary Dx); | | | | [address] | | Hemodialysis access, | | | | [phone] | | AV graft (HCC) | +--------+---------+ [...] Kylie Alves DNP - 01/25/2020 2:00 PM [facility] [address] [place] [address] [place] [address] Office: [phone] DATE OF VISIT: 01/25/2020 PATIENT NAME: Ramona [...] which was performed on 01/11/2020 at the [facility] Operating Room. The pa bakari is not having any pain. The patient denies fever, wound drainage, increasing redness, pus, increasing pain, increasing swelling. Physical examination revealed surgical incision w hich is healing well without signs of infection. She has good thrills over the AVG site. Perla carranza's web operations manager is Dr. Chi. The patient is receiving hemodialysis on Friday, Friday and Friday via right upper chest tunneled catheter at [facility]. She reports they used her right arm [...]
--- OUTSIDE RECORDS SUMMARY | ~2020-04-05 | XMS | Encounter Summary ---
Demographics + + + | Address | [address] | | | [place] [address] | + + + | Home Phone | | + + + | Preferred Language | Unknown | + + + | Marital Status | | + + + | Bahai Affiliation | Unknown | + + + | Race | Unknown | + + + | Ethnic Group | Unknown | + + + Author + + + | Author | [facility] | | | and [place] | + + + | Organization | [facility] | | | and [place] | + + + | Address | Unknown | + + + | Phone | Unavailable | + + + Support + + + + + | Name | Relationship | Address | Phone | + + + + + | Lyubov Smalls | ECON | [place], [place] | | | | | [address] | | + + + + + | Lydia Palm | ECON | [place], [place] | | | | | [address] | | + + + + + | melinda METZ" | ECON | [place], [place] | | | [place] | | [address] | | + + + + + | Jose C Oconnor | ECON | [address] | | | | | [place] | | | | | [address] | | + + + + + Care Team Providers + +------+ + | Care Business Development Name | Role | Phone | + [...] + + | 11/05/ | Emergency | [facility] | Kaitlynn Christen, DO [address] | Hyperkalemia | | 2019 | | MEDICAL CENTER | [address] | (Primary Dx); | | | | EMERGENCY CENTER | [place] [address] | Bleeding | | | | [address] | [phone] | | | | | [place], [place] | | | | | | [address] | | | | | | [phone] | | | +--------+ + + + [...] sent through Care Everywhere.Hyperkalemia, D ischarge Instructions (Grenadian)documented in this encounter Medications at Time of [...] (500), | | | | | | graphic editor Yahir Coker | | | | | [...] | 8.8 | 8.5 - 10.5 | [facility] | | | | | mg/dL | LABORATORY | | + + + + + + | Estimated | 3 (L)Comment: GFR <60: | >60 | [facility] | | | GFR | [...] | | | performed at [facility] [place] | | | | | | [facility];[place], [place] | | | | | | [address] | | | | + + + + + + + + | Specimen | + + | Blood | + + + + + + + | Performing | Address | City/State/Zipcode | Phone Number | | Organization | | | | + + + + + | [facility] | [address] | [place] [address] | [phone] | + + + + + CBC [...] | Absolute | performed at [facility] [place] [place] | K/uL | LABORATORY | | | | [address];[place], [place] | | | | | | [address] | | | | + + + + + + + + | Specimen | + + | Blood | + + + + + + + | Performing | Address | City/State/Zipcode | Phone Number | | Organization | | | | + + + + + | [facility] | [address] | [place] [address] | [phone] | + + + + + documented [...]
--- OUTSIDE RECORDS SUMMARY | ~2020-04-05 | XMS | Encounter Summary ---
Demographics + + + | Address | [address] | | | [place] [address] | + + + | Home Phone [...] [place], [place] | | | | | [address] | | + + + + + | Lydia Palm | ECON | [place], [place] | | | | | [address] | | + + + + + | melinda METZ" | ECON | [place], [place] | | | [place] | | [address] | | + + + + + | Jose C Oconnor | ECON | [place] [place] | | | | | [place] | | | | | [address] | | + + + + + Care Team Providers + +------+ + | Care Cement Sprayer Helper Name | Role | Phone | [...] [address] | | | | | | ([facility]) | [address] | | | | | | Procedures | [place] | | | | | | [address] | [id number] | | | | | | Mapping For | Phone: | | | | | | Dialysis | [phone] | | | | | | Right | Fax: | | | | | | | [phone] | | +--------+--------+ + + + + Encounter Details +--------+ + + + + | Date | Type | Department | Care Team | Description | +--------+ + + + + | 12/23/ | Hospital | [facility] | | ESRD on dialysis | | 2020 | Encounter | VASCULAR SURGERY | | (HCC) | | | | ULTRASOUND [address] | | | | | [address] | | | | | | [place], [place] | | | | | | [address] | | | | | | [phone] | | | +--------+ + + + [...] + + | Performing | Address | City/State/[facility] | Phone Number | | Organization | | | | + +---------+ + + | [facility] | | | | + +---------+ + + documented in this encounter Visit Diagnoses + + | Diagnosis | + + | ESRD on dialysis (HCC) End stage renal disease | + + documented in this encounter
--- OUTSIDE RECORDS SUMMARY | ~2020-04-05 | XMS | Encounter Summary ---
Demographics + + + | Address | [address] | | | [place] [address] | + + + | Home Phone [...] [place], [place] | | | | | [address] | | + + + + + | Lydia Palm | ECON | [place], [place] | | | | | [address] | | + + + + + | melinda METZ" | ECON | [place], [place] | | | [place] | | [address] | | + + + + + | Jose C Oconnor | ECON | [address] | | | | | [place] | | | | | [address] | | + + + + + Care Team Providers + +------+ + | Care Commissioned Police Officer Name | Role | Phone | [...] | daily thru | [address] | [place] [address] | | | | | February 23, | [place], [place] | Phone: | | | | | Peritonitis | [address] | [phone] | | | | | Procedures | Phone: | Fax: | | | | | ID | [phone] | [phone] | | | | | [place], | Fax: | | | | | | 100 MG ID | [phone] | | | | | | IV [...] + + | 02/20/ | Hospital | [facility] | Unknown, | Peritonitis | | 2019 | Encounter | MED [facility] OP [facility]ION | MD Iris Kinney | associated with | | | | [address] | [phone] | peritoneal dialysis, | | | | [place] | | initial encounter | | | | [address] | | (HCC) (Primary Dx) | | | | [phone] | | | +--------+ + + + [...] documented as of this encounter Progress Notes iGfty Diaz RN - 02/20/2019 6:14 PM PDTFormatting [...] signed by: Gifty Diaz RN 02/20/2019 18:14 mily, Gifty Diaz RN - 019 5:20 PM PDT [...]
--- OUTSIDE RECORDS SUMMARY | ~2020-04-05 | XMS | Encounter Summary ---
Demographics + + + | Address | [address] | | | [place] [address] | + + + | Home Phone [...] [place], [place] | | | | | [address] | | + + + + + | Lydia Palm | ECON | [place], [place] | | | | | [address] | | + + + + + | melinda METZ" | ECON | [place], [place] | | | [place] | | [address] | | + + + + + | Jose C Oconnor | ECON | [address] | | | | | [place] | | | | | [address] | | + + + + + Care Team Providers + +------+ + | Care Testing Projects Administrator Name | Role | Phone | + +------+ + | Juan F Whitley DO | PCP | | + +------+ + Reason for Visit + + + | Reason | Comments | + + + | Neck Pain | | + + + Encounter Details +--------+ + + + + | Date | Type | Department | Care Team | Description | +--------+ + + + + | 01/07/ | Emergency | [facility] | Natalio Wyatt, | Torticollis, acute | | 2017 | | MED CTR EMERGENCY | [address] | (Primary Dx) | | | | CENTER [address] | [facility] [place] | | | | | [place], [place] | [place] [address] | | | | | [address] | [phone] | | | | | [phone] | | | +--------+ + + + [...] | Blood Pressure | 145/90 | 01/07/2017 5:48 PM | | | | | PST | | + + + + + | Pulse | 80 | 01/07/2017 5:48 PM | | | | | PST | | + + + + + | Temperature | 36.7 C (98 F) | 01/07/2017 5:48 PM | | | | | PST | | + + + + + | Respiratory Rate | 16 | 01/07/2017 5:48 PM | | | | | PST | | + + + + + | Oxygen Saturation | 100% | 01/07/2017 5:48 PM | | | | | PST | | + + + + + | Inhaled Oxygen | - | - | | | Concentration | | | | + + + + + | Weight | 87.1 kg (192 lb) | 01/07/2017 5:48 PM | | | | | PST | | + + + + + | Height | 160 cm (5' 3") | 01/07/2017 5:48 PM | | | | | PST | | + + + + + | Body Mass Index | 34.01 | 01/07/2017 5:48 PM | | | | | PST | | + + + + + documented in this encounter Discharge Instructions Instructions Natalio Wyatt MD - 01/07/2017Take the medicine as prescribed by her [facility] doctor Try heat to neck Follow-up with your primary care doctor AttachmentsThe following attachments cannot be sent through Care Everywhere.TORTICOLLIS (WR Y NECK) (MALTESE)documented in this encounter Medications at Time of [...] +---------+--------+ + documented as of this encounter Plan of Treatment Not on filedocumented as of this encounter Procedures + +--------+ + + + | Procedure Name | Priori | Date/Time | Associated Diagnosis | Comments | | | ty | | | | + +--------+ + + + | MRI CERVICAL SPINE | STAT | 01/07/2017 | | Results for this | | WO CONTRAST | | 8:59 PM | | procedure are in the | | | | PST | | results section. | + +--------+ + + + | LABS - EXTERNAL SCAN | | 01/07/2017 | | Results for this | | | | 12:00 AM | | procedure are in the | | | | PST | | results section. | + +--------+ + + + documented in this encounter Results MRI Cervical Spine wo Contrast (01/07/2017 8:59 PM PST) + + | Specimen | + + | | + + + + + | Narrative | Performed At | + + + | UNENHANCED MRI CERVICAL SPINE 01/07/2017 8:30 PM CLINICAL | [facility] | | HISTORY: Neck pain with bilateral upper and lower extremity numbness | | | COMPARISON: None available TECHNIQUE: The following | | | 3T MR sequences of the cervical spine were obtained: 1. Sagittal | | | and coronal T1. 2. Axial and sagittal T2. 3. Axial GRE. 4. | | | Sagittal STIR. FINDINGS: Marrow signal is normal. Cervical | | | vertebral height is maintained, without evident fracture. Imaged | | | contents of the posterior fossa and foramen magnum are unremarkable. | | | The cervical and imaged upper thoracic spinal cord demonstrates | | | normal signal intensity and caliber. There is minimal dependent | | | fluid in the nasopharynx. Adjacent small, rounded high T2/STIR | | | signal foci are present in the right thyroid lobe. The imaged | | | paraspinal and upper thoracic structures are otherwise unremarkable. | | | The craniocervical junction and C1-2 and C2-3 levels are | | | unremarkable on provided sagittal and coronal images through the | | | region. The C3-4 level is unremarkable. Mild posterior disc | | | bulge is present at C4-5, without stenosis. Annular tear and a | | | mild posterior disc bulge are present at C5-6, minimally narrowing | | | the central canal. Mild posterior disc bulge is present at C6-7, | | | without stenosis. 2 mm anterolisthesis and a mild posterior disc | | | bulge are present at C7-T1, without stenosis. The imaged upper | | | thoracic spine is unremarkable on provided sagittal images through | | | the region. IMPRESSION - 1. EARLY MULTILEVEL DEGENERATIVE DISC | | | DISEASE AND MILD ANTEROLISTHESIS AT C7-T1 WITHOUT SIGNIFICANT | | | STENOSIS. 2. TINY RIGHT THYROID CYSTS/NODULES. CONSIDER | | | SONOGRAPHIC FOLLOW-UP. Preliminary results of this study were | | | reported to the ER staff by the [facility] radiologist on January 07 | | | 2017 at 2222 hours. Dictated and Signed by: Chetan Melchor MD | | | Electronically signed: 01/08/2017 7:45 AM | | + + + + + | Procedure Note | + + | Endy, Rad Results In - 01/08/2017 7:48 AM PST UNENHANCED MRI CERVICAL SPINE 01/07/2017 | | 8:30 PMCLINICAL HISTORY: Neck pain with bilateral upper and lower extremity numbness | | COMPARISON: None availableTECHNIQUE: The following 3T MR sequences of the cervical | | spine were obtained:1. Sagittal and coronal T1.2. Axial and sagittal T2.3. Axial | | GRE.4. Sagittal STIR.FINDINGS: Marrow signal is normal. Cervical vertebral height is | | maintained,without evident fracture. Imaged contents of the posterior fossa and | | foramenmagnum are unremarkable. The cervical and imaged upper thoracic spinal | | corddemonstrates normal signal intensity and caliber. There is minimal dependentfluid | | in the nasopharynx. Adjacent small, rounded high T2/STIR signal foci arepresent in the | | right thyroid lobe. The imaged paraspinal and upper thoracicstructures are otherwise | | unremarkable.The craniocervical junction and C1-2 and C2-3 levels are unremarkable | | onprovided sagittal and coronal images through the region.The C3-4 level is | | unremarkable.Mild posterior disc bulge is present at C4-5, without stenosis.Annular tear | | and a mild posterior disc bulge are present at C5-6, minimallynarrowing the central | | canal.Mild posterior disc bulge is present at C6-7, without stenosis.2 mm | | anterolisthesis and a mild posterior disc bulge are present at C7-T1,without | | stenosis.The imaged upper thoracic spine is unremarkable on provided sagittal | | imagesthrough the region.IMPRESSION -1. EARLY MULTILEVEL DEGENERATIVE DISC DISEASE AND | | MILD ANTEROLISTHESIS AT C7-N5TSBUZCR SIGNIFICANT STENOSIS.2. TINY RIGHT THYROID | | CYSTS/NODULES. CONSIDER SONOGRAPHIC FOLLOW-UP.Preliminary results of this study were | | [facility] the [facility] on January 07, 2017 at 2222 | | hours.Dictated and Signed by: Chetan Melchor MD Electronically signed: 01/08/2017 7:45 AM | |provided sagittal and coronal images through the region. | | | |The C3-4 level is unremarkable. | | | |Mild posterior disc bulge is present at C4-5, without stenosis. | | | |Annular tear and a mild posterior disc bulge are present at C5-6, minimally | |narrowing the central canal. | | | |Mild posterior disc bulge is present at C6-7, without stenosis. | | | |2 mm anterolisthesis and a mild posterior disc bulge are present at C7-T1, | |without stenosis. | | | |The imaged upper thoracic spine is unremarkable on provided sagittal images | |through the region. | | | |IMPRESSION - | |1. EARLY MULTILEVEL DEGENERATIVE DISC DISEASE AND MILD ANTEROLISTHESIS AT C7-T1 | |WITHOUT SIGNIFICANT STENOSIS. | | | |2. TINY RIGHT THYROID CYSTS/NODULES. CONSIDER SONOGRAPHIC FOLLOW-UP. | | | |Preliminary results of this study were reported to the ER staff by the [facility] | |radiologist on January 07, 2017 at 2222 hours. | | | |Dictated and Signed by: Chetan Melchor MD | | Electronically signed: 01/08/2017 7:45 AM | + + + +---------+ + + | Performing | Address | City/State/Zipcode | Phone Number | | Organization | | | | + +---------+ + + | [facility] | | | | + +---------+ + + LABS - EXTERNAL SCAN (01/07/2017 12:00 AM PST) + + + | Narrative | Performed At | + + + | Ordered by an | | | unspecified provider. | | + + + documented in this encounter Visit Diagnoses + + | Diagnosis | + + | Torticollis, acute - Primary Torticollis, unspecified | + + documented in this encounter Administered Medications + +--------+ +--------+------+ + | Medication Order | MAR | Action | Dose | Rate | Site | | | Action | Date | | | | + +--------+ +--------+------+ + | fentaNYL (PF) injection 50 mcg | Given | 01/07/20 | 50 mcg | | Deltoid- | | 50 mcg, Intramuscular, ONCE, Tue | | 17 8:28 | | | Right | | 01/07/17 at 2020, For 1 dose | | PM PST | | | | + +--------+ +--------+------+ + +---+---+ | | | +---+---+ documented in this encounter
--- OUTSIDE RECORDS SUMMARY | ~2020-04-05 | XMS | Encounter Summary ---
Demographics + + + | Address | [address] | | | [place] [address] | + + + | Home Phone | | + + + | Preferred Language | Unknown | + + + | Marital Status | | + + + | Scientologist Affiliation | Unknown | + + + [...] [place], [place] | | | | | [address] | | + + + + + | yLdia Palm | ECON | [place], [place] | | | | | [address] | | + + + + + | melinda METZ" | ECON | [place], [place] | | | [place] | | [address] | | + + + + + | Jose C Oconnor | ECON | [address] | | | | | [place] | | | | | [address] | | + + + + + Care Team Providers + +------+ + | Care Senior Analyst Name | Role | Phone | [...] + + | 08/12/ | Telephone | [facility] | Qasim Pederson MD | Wound | | 2019 | | VASCULAR SURGERY | [address] | | | | | [address] | [place], [place] | | | | | [place], [place] | [address] | | | | | [address] | | | | | | [phone] | | | +--------+ + + + [...]
--- OUTSIDE RECORDS SUMMARY | ~2020-04-05 | XMS | Encounter Summary ---
Demographics + + + | Address | [address] | | | [place] [address] | + + + | Home Phone [...] [place], [place] | | | | | [address] | | + + + + + | Lydia Palm | ECON | [place], [place] | | | | | [address] | | + + + + + | melinda METZ" | ECON | [place], [place] | | | [place] | | [address] | | + + + + + | Jose C Oconnor | ECON | [address] | | | | | [place] | | | | | [address] | | + + + + + Care Team Providers + +------+ + | Care Senior Games Technician Name | Role | Phone | + +------+ + | Juan F Whitley DO | PCP | | + +------+ + Encounter Details +--------+ + + + + | Date | Type | Department | Care Team | Description | +--------+ + + + + | 03/11/ | Hospital | [facility] | Qasim Pederson MD | | | 2019 | Encounter | [facility] | [address] | | | | | OPER[address] | [place] | | | | | [place] | [address] | | | | | [facility] [place] | | | | | | [address] | | | | | | [phone] | | | +--------+ + + + [...] Note by Janie Suresh RN at 03/11/19 4888 Author: Janie Suresh RN Service: (none) Author Type: Registered Nurse Filed: 03/11/192017 Date of Service: 03/11/191613 Status: Signed Editor Greeting Card: Jnaie Suresh RN (Registered Nurse) Discharge instructions completed [...] Notes by Frandy Alex RPH at 03/11/19 1443 Author: Frandy Alex RPH Service: Pharmacy Author Type: Pharmacist Filed: 03/11/19 1441 Date of Service: 03/11/191444 Status: Signed Editor Greeting Card: Frandy Alex RPH (Pharmacist) Clinical Pharmacy Note: [...] (A) Pharmacy dosing for renal function per PAC Phani. Currently, there are no medications needing to be adjusted. Pharmacy will continue to monit or for changes in medication orders and in renal function and adjust accordingly. Frandy Alex RPh 03/11/2019 2:45 PM onver patric Transaction, Provider Unknown - 03/11/2019 2:10 PM PDT Nurse Progress Note by Esthela Nieto RN at 03/11/19 1110 Author: Esthela Nieto RN Service: General Surgery Author Type: Registered Nurse Filed: 03/11/19 1273 Date of Service: 03/11/19 141 Status: Signed Editor Greeting Card: Esthela Nieto, RN (Registered Nurse) Pt c/o L shoulder pain 04/19. Pt feels no pain in lower arm at this time. See Jan. Vineet luna to monitor. Esthela Nieto RN docume nted in this encounter Plan [...] QUALITATIVE | [place] [facility] [place] | | LAB | | | | [address];[place], [place] | | | | | | [address] | | | | + + + [...] | | performed at [facility];[address] | | | | | | [facility];[place], [place] | | | | | | [address] | | | | + + + [...]
--- OUTSIDE RECORDS SUMMARY | ~2020-04-05 | XMS | Encounter Summary ---
Demographics + + + | Address | [address] | | | [place] [address] | + + + | Home Phone | | + + + | Preferred Language | Unknown | + + + | Marital Status | | + + + | Restorationism Affiliation | Unknown | + + + | Race | Unknown | + + + | Ethnic Group | Unknown | + + + Author + + + | Author | [facility] | | | and [place] | + + + | Organization | [facility] | | | and [place] | + + + | Address | Unknown | + + + | Phone | Unavailable | + + + Support + + + + + | Name | Relationship | Address | Phone | + + + + + | Lyubov Smalls | ECON | [place], [place] | | | | | [address] | | + + + + + | Lydia Palm | ECON | [place], [place] | | | | | [address] | | + + + + + | melinda METZ" | ECON | [place], [place] | | | [place] | | [address] | | + + + + + | Jose C Oconnor | ECON | [place] | | | | | [place] | | | | | [address] | | + + + + + Care Team Providers + +------+ + | Care Field Assistant Name | Role | Phone | [...] | | | | | | | ([facility]) | | | | | | | [...] + + | 01/10/ | Surgery | [facility] | Mundo Ramos MD | AV GRAFT CREATION | | 2019 | [facility] | [address] | | | | | [address]PER[address] | [place], [place] | | | | | [address] | [address] | | | | | [place], [place] | [phone] | | | | | [address] | | | | | | [phone] | | | +--------+---------+ + + + [...] might be different fr om the original. [facility] AV DIALYSIS SHUNT/FISTULA DISCHARGE INSTRUCTIONS Your [...] 24 hours, or as directed by your [facility]. Change your dressing if it [...] by your healthcare provider Date Last Reviewed: 10/10/201619994881-5656 [employer]. [address] [place] [address]. All righ ts reserved. This information is [...] chances for infection. Controlled body temperature. A [id number]-[id number]-[id number] temperature during or after surgery pre vents [...] water or with an alcoho l-based hand street light cleaner before and after caring for you. [...] doesn t go away Date Last Reviewed: 10/10/201619990059-3586 [facility] [employer]. [address] [place] [address]. All righ ts reserved. This information is [...] to an official disposal site. Contact the [facility] at [phone] or your city/[facility] government to find a site. If you cannot return the medicine, flush it down the toilet. Do not use the medicine after the expiration date. [facility] AV DIALYSIS SHUNT/FISTULA DISCHARGE INSTRUCTIONS Your [...] information carefully each time. Talk to your crowning inspector regarding the use of this medicine in [...] this medicine? Tell your doctor or health primary care nurse practitioner if your pain does not go away, [...] should report to your doctor or health primary care nurse practitioner as soon as p ossible: allergic reactions like skin rash, itching or hives, swelling of the face, lips, or tong ue breathing problems chest pain confusion fast, irregular heartbeat feeling faint or lightheaded, falls trouble passing urine or change in the amount of urine Side effects that usually do not require medical attention (Report these to your doctor or health primary care nurse practitioner if they continue or are bothersome.): constipation dizziness headache nausea stomach pain tiredness vomiting This list may not describe all possible side effects. Call your doctor for medical advice a bout side effects. You may report side effects to FDA at 8-021-XWJ-3659. Where should I keep my medicine? Keep [...] | | | | 10:00 AM | ([facility]) | | | | | PST | [...] [place] | | | | | | [address] | | | | + + + + + + + + | Specimen | + + | Blood | + + + + + + + | Performing | Address | City/State/Zipcode | Phone Number | | Organization | | | | + + + + + | [facility] | [address] | [place] [address] | [phone] | + + + + + Basic [...] | | | | | | MDRD [facility] traceable | | | | | | equation.Testing | | | | | | performed at [facility] [place];[address] | | | | | | [facility];[place], [place] | | | | | | [address] | | | | + + + + + + + + | Specimen | + + | Blood | + + + + + + + | Performing | Address | City/State/Zipcode | Phone Number | | Organization | | | | + + + + + | [facility] | [address] | [place] [address] | [phone] | + + + + + documented in this encounter Visit Diagnoses + + | Diagnosis | + + | ESRD on dialysis ([facility]) End stage renal disease | + + documented in this encounter Admitting Diagnoses + + | Diagnosis | + + | ESRD on dialysis ([facility]) End stage renal disease | + + [...] | | | | | | longer, mtcbjq-roe-zhhmy use of | | | | | [...] | | | | | | | pengam-gfy-zgaig use of at least | | | [...]
--- OUTSIDE RECORDS SUMMARY | ~2020-04-05 | XMS | Encounter Summary ---
Demographics + + + | Address | [address] | | | [place] [address] | + + + | Home Phone | | + + + | Preferred Language | Unknown | + + + | Marital Status | | + + + | Pentecostalism Affiliation | Unknown | + + + | Race | Unknown | + + + | Ethnic Group | Unknown | + + + Author + + + | Author | [facility] | | | and [place] | + + + | Organization | [facility] [...] [place], [place] | | | | | [address] | | + + + + + | Lydia Palm | ECON | [place], [place] | | | | | [address] | | + + + + + | melinda METZ" | ECON | [place], [place] | | | [place] | | [address] | | + + + + + | Jose C Oconnor | ECON | [address] [place] | | | | | [place] | | | | | [address] | | + + + + + Care Team Providers + +------+ + | Care Instructor Psychiatric Aide Name | Role | Phone | + +------+ + | Juan F Whitley DO | PCP | | + +------+ + Encounter Details +--------+ + + + + | Date | Type | Department | Care Team | Description | +--------+ + + + + | 08/14/ | Abstract | [facility] | [facility] | | | 2018 | | [facility] | MD Kiran [address] | | | | | KIDNEY TRANSPLANT | [place] [address] | | | | | [address] [place] | [place] [address] | | | | | [address] [place] [address] | [phone] | | | | | [address] | | | | | | [phone] | | | +--------+ + + + [...]
--- OUTSIDE RECORDS SUMMARY | ~2020-04-05 | XMS | Encounter Summary ---
Demographics + + + | Address | [address] | | | [place] [address] | + + + | Home Phone | | + + + | Preferred Language | Unknown | + + + | Marital Status | | + + + | Sabianist Affiliation | Unknown | + + + | Race | Unknown | + + + | Ethnic Group | Unknown | + + + Author + + + | Author | [facility] | | | and [place] | + + + | Organization | [facility] | | | and [place] | + + + | Address | Unknown | + + + | Phone | Unavailable | + + + Support + + + + + | Name | Relationship | Address | Phone | + + + + + | Lyubov Smalls | ECON | [place], [place] | | | | | [phone] | | + + + + + | Lydia Palm | ECON | [place], [place] | | | | | [address] | | + + + + + | melinda METZ" | ECON | [place], [place] | | | reba | | [phone] | | + + + + + | Jose C Oconnor | ECON | [place] | | | | | [place] | | | | | [address] | | + + + + + Care Team Providers + +------+ + | Care Corporate Relations Manager Name | Role | Phone | [...] + + | 09/03/ | Surgery | [facility] | Mundo Ramos MD | Resection of left | | 2019 | | [facility] | [address] | arm AV graft with | | | | OPERATING ROOM [address] | [address] [place], [place] | wound vac placement | | | | [address] | [address] | | | | | [place], [place] | [phone] | | | | | [address] | | | | | | [phone] | | | +--------+---------+ + + + [...] might be different f rom the original. [facility] Service: Hospitalist Discharge Summary Date of Admission: [...] eventually removed. Patient was seen in [facility] clinic 08/24/19 for wound check and [...] MD [address] [facility] [phone] Cathie Marroquin MD [address] [facility] [phone] In 2 weeks [facility] VASCULAR SURGERY [address] [place] [facility] [phone] In 1 week Discharge Medications New Medications [...] needs. Pt has appointment for tomorrow with [facility] wound care center at 1430. Pt will see dialysis on Friday to restart and get IV ABX. Electronically signed: Florentino Faye RN 09/08/2019 13:03 Nisha Lucio RN - 09/08/2019 10:51 AM [facility] Service: Wound/Ostomy Care Progress Note Patient [...] Kincaid MD - 09/08/2019 9:40 AM PDT [facility] Service: NEPHROLOGY Progress Note Ramona Oconnor 39 y.o. [id number] 401/401-01 female No Physician on file Hospital [...] 10/25/15 showed normal sized kidneys. She initiated CLINICAL TRIAL ASSOCIATE with PD 10/28/15. 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 GERD (gastroesophageal reflux disease) Hypercalcemia 09/07/2017 Hyperphosphatemia [...] STENTS ; Surgeon: Qasim Pederson MD; Location: [facility] MAIN OR AV FISTULA REPAIR Left 09/03/2019 Procedure: Resection of left arm AV graft with wound vac placement; Surgeon: Lexi Posada; Location: [facility] MAIN OR CATHETER REMOVAL 02/04/2019 Procedure: DIALYSIS CATHETER - REMOVAL; Surgeon: Qasim Pederson MD; Location: [facility] OR ; Service: Vascular; Laterality: N/A; Infected PD catheter removal DEBRIDEMENT Left 07/08/2019 Procedure: LEFT AXILLA WOUND DEBRIDEMENT, WASHOUT AND POSSIBLE WOUND VAC PLACEMENT; Surge on: Qasim Pederson MD; Location: [facility] MAIN OR OTHER SURGICAL HISTORY Left 03/11/2019 AV FISTULA PLACEMENT - Procedure: AV FISTULA; Surgeon: Qasim Pederson MD; Location: [facility] OR; Service: Vascular; Laterality: Left; OTHER SURGICAL HISTORY HARDWARE PRESENT OTHER SURGICAL HISTORY Right 01/2019 chest wall OTHER SURGICAL HISTORY Left 05/06/2019 AV GRAFT CREATION - Procedure: AV GRAFT CREATION; Surgeon: Qasim Pederson MD; Location: [facility] MAIN OR; Service: Vascular; Laterality: Left; bovine carotid graft OTHER SURGICAL HISTORY Left 05/26/2019 WOUND VAC PLACEMENT/REPLACEMENT - Procedure: WOUND VAC - PLACEMENT - REPLACEMENT; Surgeon : Qasim Pederson MD; Location: [facility] MAIN OR; Service: Vascular; Laterality: Left; PERITONEAL CATHETER PLACEMENT/REMOVAL 10/28/2015 Procedure: LAPAROSCOPIC - PERITONEAL DIALYSIS CATH INSERTION; Surgeon: Mundo Ramos MD; Lo cation: [facility] MAIN OR; Service: Vascular; Laterality: N/A; UPPER GASTROINTESTINAL ENDOSCOPY 09/10/2017 Procedure: ESOPHAGOGASTRODUODENOSCOPY; Surgeon: Beena Peters MD; Location: [facility] ENDOSCOP Y; Service: Gastroenterology; Laterality: [...] earlier and charting completed later Dictation software, [employer], used which may contain error for similar sounding words even af ter review. Personal communication requested for any clarification. Florentino Ling RN - 09/08/2019 9:30 AM PDTCar e Management Follow-Up Readmission Risk: Medium Current Discharge Plan Anticipated Discharge Disposition: home Expected DC Date: Barriers to Discharge: Steps Taken Toward Discharge: Faxed Referral to wound care to [facility] and calledNeelima has accepted and schedule appointment for 09/09/2019 @ 1430 Next Steps: d/c Community Support Services Current Outpt/Agency/Support Groups: outpatient hemodialysis (specify) Community Agency Name: [facility] wound clinic Other Resources: Discharge Transportation Transportation [...] Kincaid MD - 09/07/2019 11:35 AM PDT [facility] Service: NEPHROLOGY Progress Note Ramona Oconnor 39 y.o. [id number] 401/401-01 female No Physician on file Hospital [...] 10/25/15 showed normal sized kidneys. She initiated CLINICAL TRIAL ASSOCIATE with PD 10/28/15. 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 GERD (gastroesophageal reflux disease) Hypercalcemia 09/07/2017 Hyperphosphatemia [...] STENTS ; Surgeon: Qasim Pederson MD; Location: [facility] MAIN OR AV FISTULA REPAIR Left 09/03/2019 Procedure: Resection of left arm AV graft with wound vac placement; Surgeon: Lexi Posada; Location: [facility] MAIN OR CATHETER REMOVAL 02/04/2019 Procedure: DIALYSIS CATHETER - REMOVAL; Surgeon: Qasim Pederson MD; Location: [facility] MAIN OR ; Service: Vascular; Laterality: N/A; Infected PD catheter removal DEBRIDEMENT Left 07/08/2019 Procedure: LEFT AXILLA WOUND DEBRIDEMENT, WASHOUT AND POSSIBLE WOUND VAC PLACEMENT; Surge on: Qasim Pederson MD; Location: [facility] MAIN OR OTHER SURGICAL HISTORY Left 03/11/2019 AV FISTULA PLACEMENT - Procedure: AV FISTULA; Surgeon: Qasim Pederson MD; Location: [facility] OR; Service: Vascular; Laterality: Left; OTHER SURGICAL HISTORY HARDWARE PRESENT OTHER SURGICAL HISTORY Right 01/2019 chest wall OTHER SURGICAL HISTORY Left 05/06/2019 AV GRAFT CREATION - Procedure: AV GRAFT CREATION; Surgeon: Qasim Pederson MD; Location: [facility] MAIN OR; Service: Vascular; Laterality: Left; bovine carotid graft OTHER SURGICAL HISTORY Left 05/26/2019 WOUND VAC PLACEMENT/REPLACEMENT - Procedure: WOUND VAC - PLACEMENT - REPLACEMENT; Surgeon : Qasim Pederson MD; Location: [facility] MAIN OR; Service: Vascular; Laterality: Left; PERITONEAL CATHETER PLACEMENT/REMOVAL 10/28/2015 Procedure: LAPAROSCOPIC - PERITONEAL DIALYSIS CATH INSERTION; Surgeon: Mundo Raoms MD; Lo cation: [facility] OR; Service: Vascular; Laterality: N/A; UPPER GASTROINTESTINAL ENDOSCOPY 09/10/2017 Procedure: ESOPHAGOGASTRODUODENOSCOPY; Surgeon: Beena Peters MD; Location: [facility] ENDOSCOP [facility]; Service: Gastroenterology; Laterality: [...] earlier and charting completed later Dictation software, [employer], used which may contain error for similar sounding words even af ter review. Personal communication requested for any clarification. Man Jha PA-C - 09/07/2019 9:03 AM PDTFo rmatting of this note might be different from the original. [facility] Service: Vascular Surgery Progress Note Post-Op Day: [...] 08/26 patient was emergently t ransferred to [facility] for severe bleeding from left axilla. She [...] CV: No peripheral edema, rate regular SKIN: [place], warm, dry without rash/lesion MS: ROM not [...] Esparza MD - 09/07/2019 8:31 AM PDT [facility] Adult Hospitalist Progress Note Hospital Day: 4 [...] for input(s): IRON, TIBC, PCTSAT, FERRITIN, TSH, [id number], FOLATE in the last 168 hours. No [...] least 50% of time was spent in [id number] coordination of care and counseling. All questions [...] Steps Taken Toward Discharge: Followed up on [facility] referral Next Steps: Face to face needs to be written at discharge and faxed to [facility] . Community Support Services Current Outpt/Agency/Support Groups: outpatient hemodialysis (specify) Community Agency Name: Sonia Martin Other Resources: [facility] Discharge Transportation Transportation Needs: none Notes: CM called and followed up on referral sent yesterday. Fly Chan received referral and accepting pending face to face home health order at discharge. ADDENDUM: CM discussed with Pt again on home health, Pt states she would like to continue w ound vac dressing changes at [facility] wound care [place] and has her own wound vac. She [...] Lindsey RN - 09/06/2019 12:33 PM PDT [facility] Service: Wound Care NPWT Note Hospital Day: [...] to follow with you. JUJU Saldaña RN [facility] 09/06/19 12:38 Florentino Granados RN - 09/06/2019 11:16 AM PDTCare Management Follow-Up Readmission Risk: Medium Current Discharge Plan Anticipated Discharge Disposition: home Expected DC Date: Barriers to Discharge: Steps Taken Toward Discharge: called Soo mclaughlin for [facility] and notified her o f IV ABX with HD, sent referral to [facility] for wound Vac care. Next Steps: follow-up with home health on acceptance. Community Support Services Current Outpt/Agency/Support Groups: outpatient hemodialysis (specify) Community Agency Name: Other Resources: Discharge Transportation Transportation Needs: none Notes: Called Soo mclaughlin for [facility] and notified her of HD with IV ABX, Soo will fol low. I sent referral to [facility] health [facility]. CM will follow up with HH for wound va c. Wound Vac pre-authorization form signed and sent to [facility]ac[facility] [employer]. Electronically signed: Florentino Faye RN 09/06/2019 11:16 Cathie Saab MD - 09/06/2019 9:45 AM PDTFormatting of this note might be different from the ave troy [facility] Service: Infectious Diseases Progress Note Hospital Day: [...] intact. Follows commands. LABS: MICRO Culture, Blood [[id number]] Collected: 09/03/192015 Order Status: Completed Specimen: Blood Updated: 09/05/19 0521 Special Requests DIALYSIS PORT Special Requests Testing performed at [facility];[address] [place] [address] RESULT NO GROWTH 2 DAYS RESULT Testing performed at [address] [address] Comment: Testing performed at [facility], [address] [place] [address]186 Culture, Tissue, Smear, with Anaerobes [[id number]] (Abnormal) Collected: 09/03/191722 Order Status: Completed Specimen: Tissue from Arm, Left Updated: 09/06/19 0915 Special Requests L ARM Special Requests Testing performed at [facility];[address] [place] [address]131 Gram Stain Result -- 3+ WBC'S SEEN Gram Stain Result -- 4+ GRAM POSITIVE COCCI Gram Stain Result Testing performed at [facility], [address] [place] [address] RESULT --Abnormal 2+ ENTEROCOCCUS FAECALIS Aminoglycosides (except for high-level resistance testing), cephalosporins, clindamycin, an d trimethoprim-sulfamethoxazole may appear active in vitro but they are not effective clinic ally. Abnormal Susceptibility Enterococcus faecalis (1) Antibiotic Interpretation Vitek 2XL Method Status Ampicillin Sensitive SUSCEPTIBLE CORINNE Preliminary Penicillin G Sensitive SUSCEPTIBLE CORINNE Preliminary Levofloxacin Sensitive SUSCEPTIBLE CORINNE Preliminary Vancomycin Sensitive SUSCEPTIBLE CORINNE Preliminary Testing performed at [facility], [address] [place] [address]7066 Culture, Wound, Smear, w/Anaerobe [[id number]] (Abnormal) Collected: 09/03/19 8777 Order Status: Completed Specimen: Tissue from Arm, Left Updated: 09/06/19 0913 Special Requests LT ARM GRAFT SITE Special Requests Testing performed at [facility];[address] [place] [address]451 Gram Stain Result WBC'S SEEN Gram Stain Result GRAM POSITIVE COCCI Gram Stain Result STAIN PERFORMED ON CYTOSPIN Gram Stain Result Testing performed at [facility];[address] [place] [address] RESULT --Abnormal 2+ ENTEROCOCCUS FAECALIS Aminoglycosides (except for high-level resistance testing), cephalosporins, clindamycin, an d trimethoprim-sulfamethoxazole may appear active in vitro but they are not effective clinic ally. Abnormal Susceptibility Enterococcus faecalis (1) Antibiotic Interpretation Vitek 2XL Method Status Ampicillin Sensitive SUSCEPTIBLE CORINNE Preliminary Penicillin G Sensitive SUSCEPTIBLE CORINNE Preliminary Levofloxacin Sensitive SUSCEPTIBLE CORINNE Preliminary Vancomycin Sensitive SUSCEPTIBLE CORINNE Preliminary Testing performed at [facility], [address] [place] [address] All labs were reviewed.Data: Recent Results (from [...] with HD ---blood cultures NGTD Dictation software, [employer], used which may contain error for similar sounding words even af ter review. Personal communication requested for any clarification. Portions of this chart may have been copied from previous notes for continuity of care purp ose Cathie Marroquin MD Infectious Diseases 09/06/2019 Abhijeet, Kaylen cason PA-C - 09/06/2019 9:36 AM PDTFormatting of this note might be different from the or iginal. [facility] Service: Vascular Surgery Progress Note Post-Op Day: [...] 08/26 patient was emergently t ransferred to [facility] for severe bleeding from left axilla. She [...] CV: No peripheral edema, rate regular SKIN: [place], warm, dry without rash/lesion MS: ROM not [...] Green MD - 09/06/2019 8:04 AM PDT [facility] Service: Hospitalist Progress Note Pt: Ramona Oconnor AGE/SEX: 39 y.o. female ROOM: [facility]401-01 : 1980 PCP: No Physician on [...] in coordination of care, seeing and managing eirs villegas, review of data, coordination with staff, coordination with involved consultants, and including any scheduled multidisciplinary rounding focused on the patient. Dictation software, [employer], used which may contain error for similar [...] Kincaid MD - 09/05/2019 5:17 PM PDT [facility] Service: NEPHROLOGY Progress Note Ramona Oconnor 39 y.o. [id number] 401/401-01 female No Physician on file Hospital [...] 10/25/15 showed normal sized kidneys. She initiated CLINICAL TRIAL ASSOCIATE with PD 10/28/15. 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 GERD (gastroesophageal reflux disease) Hypercalcemia 09/07/2017 Hyperphosphatemia [...] STENTS ; Surgeon: Qasim Pederson MD; Location: [facility] MAIN OR AV FISTULA REPAIR Left 09/03/2019 Procedure: Resection of left arm AV graft with wound vac placement; Surgeon: Lexi Posada; Location: [facility] MAIN OR CATHETER REMOVAL 02/04/2019 Procedure: DIALYSIS CATHETER - REMOVAL; Surgeon: Qasim Pederson MD; Location: [facility] MAIN OR ; Service: Vascular; Laterality: N/A; Infected PD catheter removal DEBRIDEMENT Left 07/08/2019 Procedure: LEFT AXILLA WOUND DEBRIDEMENT, WASHOUT AND POSSIBLE WOUND VAC PLACEMENT; Surge on: Qasim Pederson MD; Location: [facility] MAIN OR OTHER SURGICAL HISTORY Left 03/11/2019 AV FISTULA PLACEMENT - Procedure: AV FISTULA; Surgeon: Qasim Pederson MD; Location: [facility]; Service: Vascular; Laterality: Left; OTHER SURGICAL HISTORY HARDWARE PRESENT OTHER SURGICAL HISTORY Right 01/2019 chest wall OTHER SURGICAL HISTORY Left 05/06/2019 AV GRAFT CREATION - Procedure: AV GRAFT CREATION; Surgeon: Qasim Pederson MD; Location: [facility] MAIN OR; Service: Vascular; Laterality: Left; bovine carotid graft OTHER SURGICAL HISTORY Left 05/26/2019 WOUND VAC PLACEMENT/REPLACEMENT - Procedure: WOUND VAC - PLACEMENT - REPLACEMENT; Surgeon : Qasim Pederson MD; Location: [facility] MAIN OR; Service: Vascular; Laterality: Left; PERITONEAL CATHETER PLACEMENT/REMOVAL 10/28/2015 Procedure: LAPAROSCOPIC - PERITONEAL DIALYSIS CATH INSERTION; Surgeon: Mundo Ramos MD; Lo cation: [facility] MAIN OR; Service: Vascular; Laterality: N/A; UPPER GASTROINTESTINAL ENDOSCOPY 09/10/2017 Procedure: ESOPHAGOGASTRODUODENOSCOPY; Surgeon: Beena Peters MD; Location: [facility] ENDOSCOP Y; Service: Gastroenterology; Laterality: [...] earlier and charting completed later Dictation software, [employer], used which may contain error for similar [...] might be different from victor manuel mckeon. [facility] Service: Infectious Diseases Progress Note Hospital Day: [...] intact. Follows commands. LABS: MICRO Culture, Blood [[id number]] Collected: 09/03/192015 Order Status: Completed Specimen: Blood Updated: 09/05/19 0521 Special Requests DIALYSIS PORT Special Requests Testing performed at [facility];[address] [place] [address] 11571 RESULT NO GROWTH 2 DAYS RESULT Testing performed at [facility], [address] [place] [address] Comment: Testing performed at [facility], [address] [place] [address] Culture, Tissue, Smear, with Anaerobes [[id number]] Collected: 09/03/19 1723 Order Status: Completed Specimen: Tissue from Arm, Left Updated: 09/04/19 1800 Special Requests L ARM Special Requests Testing performed at [facility];[address] [place] [address] Gram Stain Result -- 3+ WBC'S SEEN Gram Stain Result -- 4+ GRAM POSITIVE COCCI RESULT CULTURE IN PROGRESS RESULT Testing performed at [facility], [address] [place] [address] Comment: Testing performed at [facility], [address] [place] [address] Culture, Wound, Smear, w/Anaerobe [[id number]] Collected: 09/03/19 1627 Order Status: Completed Specimen: Tissue from Arm, Left Updated: 09/04/19 1758 Special Requests LT ARM GRAFT SITE Special Requests Testing performed at [facility];[address] [place] [address] Gram Stain Result WBC'S SEEN Gram Stain Result GRAM POSITIVE COCCI Gram Stain Result STAIN PERFORMED ON CYTOSPIN Gram Stain Result Testing performed at [facility];[address] [place] [address] RESULT CULTURE IN PROGRESS RESULT Testing performed at [facility], [address] [place] [address] Comment: Testing performed at [facility], [address] [place] [address] All labs were reviewed.Data: Recent Results (from [...] emotional over some bad news Dictation software, [employer], used which may contain error for similar sounding words even af ter review. Personal communication requested for any clarification. Portions of this chart may have been copied from previous notes for continuity of care purp ose Cathie Marroquin MD Infectious Diseases 09/05/2019 Brandin Kennedy MD - 09/05/2019 8:19 AM PDTFormatting of this note might be different from the or iginal. [facility] Service: Hospitalist Progress Note Pt: Ramona Oconnor AGE/SEX: 39 y.o. female ROOM: [address] [place] [address] : 1980 PCP: No Physician on file [...] rounding focused on the patient. Dictation software, [employer], used which may contain error for similar [...] unable to calm down and very emotional, named account executiveradha moy, notified and 1 mg ativan given IV. Wound vac in place. Chart check complete Azeb Chamorro RN 09/05/19 @6:26 Linden Kincaid MD - 09/04/2019 7:30 PM PDT [facility] Service: NEPHROLOGY Progress Note Ramona Oconnor 39 y.o. [id number] 401/401-01 female No Physician on file Hospital [...] 10/25/15 showed normal sized kidneys. She initiated CLINICAL TRIAL ASSOCIATE with PD 10/28/15. 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 GERD (gastroesophageal reflux disease) Hypercalcemia 09/07/2017 Hyperphosphatemia [...] STENTS ; Surgeon: Qasim Pederson MD; Location: [facility] MAIN OR AV FISTULA REPAIR Left 09/03/2019 Procedure: Resection of left arm AV graft with wound vac placement; Surgeon: Lexi Posada; Location: [facility] MAIN OR CATHETER REMOVAL 02/04/2019 Procedure: DIALYSIS CATHETER - REMOVAL; Surgeon: Qasim Pederson MD; Location: [facility] MAIN OR ; Service: Vascular; Laterality: N/A; Infected PD catheter removal DEBRIDEMENT Left 07/08/2019 Procedure: LEFT AXILLA WOUND DEBRIDEMENT, WASHOUT AND POSSIBLE WOUND VAC PLACEMENT; Surge on: Qasim Pederson MD; Location: [facility] MAIN OR OTHER SURGICAL HISTORY Left 03/11/2019 AV FISTULA PLACEMENT - Procedure: AV FISTULA; Surgeon: Qasim Pederson MD; Location: [facility]; Service: Vascular; Laterality: Left; OTHER SURGICAL HISTORY HARDWARE PRESENT OTHER SURGICAL HISTORY Right 01/2019 chest wall OTHER SURGICAL HISTORY Left 05/06/2019 AV GRAFT CREATION - Procedure: AV GRAFT CREATION; Surgeon: Qasim Pederson MD; Location: [facility] MAIN OR; Service: Vascular; Laterality: Left; bovine carotid graft OTHER SURGICAL HISTORY Left 05/26/2019 WOUND VAC PLACEMENT/REPLACEMENT - Procedure: WOUND VAC - PLACEMENT - REPLACEMENT; Surgeon : Qasim Pederson MD; Location: [facility] MAIN OR; Service: Vascular; Laterality: Left; PERITONEAL CATHETER PLACEMENT/REMOVAL 10/28/2015 Procedure: LAPAROSCOPIC - PERITONEAL DIALYSIS CATH INSERTION; Surgeon: Mundo Ramos MD; Lo cation: [facility] MAIN OR; Service: Vascular; Laterality: N/A; UPPER GASTROINTESTINAL ENDOSCOPY 09/10/2017 Procedure: ESOPHAGOGASTRODUODENOSCOPY; Surgeon: Beena Peters MD; Location: [facility] ENDOSCOP [facility]; Service: Gastroenterology; Laterality: [...] earlier and charting completed later Dictation software, [employer], used which may contain error for similar [...] might be dif ferent from the original. [facility] Service: Hospitalist Progress Note Pt: Ramona Oconnor AGE/SEX: 39 y.o. female ROOM: [address] [place] [address] : 1980 PCP: No Physician on file [...] rounding focused on the patient. Dictation software, [employer], used which may contain error for similar [...] Awaiting final culture and sensitivities for appropriate termite control technician antibiotic coverage. Please feel free to call with any questions or concerns. Mundo Ramos MD Loretta Gan, [facility] - 09/04/2019 12:57 AM PDTFormatting of this [...] Procedure Component Value Units Date/Time Culture, Blood [[id number]] Collected: 09/03/192015 Order Status: Sent Lab Status: In process Updated: 09/03/192217 Specimen: Blood Culture, Tissue, Smear, with Anaerobes [[id number]] Collected: 09/03/19 172 Order Status: Completed Lab Status: Preliminary result Updated: 09/03/192241 Specimen: Tissue from Arm, Left Special Requests L ARM Special Requests Testing performed at [facility];[address] [place] [address] Gram Stain Result 3+ WBC'S SEEN Gram Stain Result 4+ GRAM POSITIVE COCCI Gram Stain Result Testing performed at [facility], [address] [place] [address] RESULT PENDING Comment: Testing performed at [facility], [address] [place] [address] Culture, Wound, Smear, w/Anaerobe [[id number]] Collected: 09/03/19 1627 Order Status: Completed Lab Status: Preliminary result Updated: 09/03/19 183 Specimen: Tissue from Arm, Left Special Requests LT ARM GRAFT SITE Gram Stain Result WBC'S SEEN Gram Stain Result GRAM POSITIVE COCCI Gram Stain Result STAIN PERFORMED ON CYTOSPIN Gram Stain Result Testing performed at [facility];[address] [place] [address];[place] [address] RESULT PENDING Comment: Testing performed at [facility], [address] [place] [address], [place] [address] Labs Component Value Date/Time WBC 13.78 (H) [...] BUSTOS RP, Pharmacist 09/04/2019 0:47 Gwyn Gan [facility] - 09/04/2019 12:45 AM PDTClinical Pharmacy Note: [...] | | | | | [place] [address] | | | | + + + + + + + + | Specimen | + + | Blood | + + + + + + + | Performing | Address | City/State/Zipcode | Phone Number | | Organization | | | | + + + + + | [facility] | [address] | [place] [address] | [phone] | + + + + + Magnesium (09/08/2019 4:47 AM PDT) + + + + + + | Component | Value | Ref Range | Performed | Pathologist | | | | | At | Signature | + + + + + + | Magnesium | 2.9 (H)Comment: Testing | 1.7 - 2.4 mg/dL | [facility] | | | | performed at [facility], [address] | | LABORATORY | | | | [address], | | | | | | [place] [address] | | | | + + + + + + + + | Specimen | + + | Blood | + + + + + + + | Performing | Address | City/State/Zipcode | Phone Number | | Organization | | | | + + + + + | [facility] | [address] | [place] [address] | [phone] | + + + + + Basic [...] 4 (L)Comment: GFR <60: | >60 | [facility] | | | GFR | [...] performed at [facility], [address] | | | | | | [facility], | | | | | | [place] [address] | | | | + + + + + + + + | Specimen | + + | Blood | + + + + + + + | Performing | Address | City/State/Zipcode | Phone Number | | Organization | | | | + + + + + | [facility] | [address] | [place] [address] | [phone] | + + + + + CBC [...] [facility] | | | | performed at [facility], [address] | | LABORATORY | | | | [address], | | | | | | [place] [address] | | | | + + + + + + + + | Specimen | + + | Blood | + + + + + + + | Performing | Address | City/State/Zipcode | Phone Number | | Organization | | | | + + + + + | [facility] | [address] | [place] [address] | [phone] | + + + + + Phosphorus (09/07/2019 4:31 AM PDT) + + + + + + | Component | Value | Ref Range | Performed | Pathologist | | | | | At | Signature | + + + + + + | Phosphorus | 4.1Comment: Testing | 2.3 - 4.8 mg/dL | [facility] | | | | performed at [facility], [address] | | LABORATORY | | | | [address], | | | | | | [place] [address] | | | | + + + + + + + + | Specimen | + + | Blood | + + + + + + + | Performing | Address | City/State/Zipcode | Phone Number | | Organization | | | | + + + + + | [facility] | [address] | [place] [address] | [phone] | + + + + + Magnesium (09/07/2019 4:31 AM PDT) + + + + + + | Component | Value | Ref Range | Performed | Pathologist | | | | | At | Signature | + + + + + + | Magnesium | 2.5 (H)Comment: Testing | 1.7 - 2.4 mg/dL | [facility] | | | | performed at [facility], [address] | | LABORATORY | | | | [address], | | | | | | [place] [address] | | | | + + + + + + + + | Specimen | + + | Blood | + + + + + + + | Performing | Address | City/State/Zipcode | Phone Number | | Organization | | | | + + + + + | [facility] | [address] | [place] [address] | [phone] | + + + + + Basic [...] 7 (L)Comment: GFR <60: | >60 | [facility] | | | GFR | [...] performed at [facility], [address] | | | | | | [facility], | | | | | | [place] [address] | | | | + + + + + + + + | Specimen | + + | Blood | + + + + + + + | Performing | Address | City/State/Zipcode | Phone Number | | Organization | | | | + + + + + | [facility] | [address] | [place] [address] | [phone] | + + + + + CBC [...] | | | | | [place] [address] | | | | + + + + + + + + | Specimen | + + | Blood | + + + + + + + | Performing | Address | City/State/Zipcode | Phone Number | | Organization | | | | + + + + + | [facility] | [address] | [place] [address] | [phone] | + + + + + Phosphorus (09/06/2019 5:14 AM PDT) + + + + + + | Component | Value | Ref Range | Performed | Pathologist | | | | | At | Signature | + + + + + + | Phosphorus | 6.3 (H)Comment: Testing | 2.3 - 4.8 mg/dL | [facility] | | | | performed at [facility], [address] | | LABORATORY | | | | [address], | | | | | | [place] [address] | | | | + + + + + + + + | Specimen | + + | Blood | + + + + + + + | Performing | Address | City/State/Zipcode | Phone Number | | Organization | | | | + + + + + | [facility] | [address] | [place] [address] | [phone] | + + + + + Magnesium [...] | | | | | [place] [address] | | | | + + + + + + + + | Specimen | + + | Blood | + + + + + + + | Performing | Address | City/State/Zipcode | Phone Number | | Organization | | | | + + + + + | [facility] | [address] | [place] [address] | [phone] | + + + + + Basic [...] 4 (L)Comment: GFR <60: | >60 | [facility] | | | GFR | [...] performed at [facility], [address] | | | | | | [facility], | | | | | | [place] [address] | | | | + + + + + + + + | Specimen | + + | Blood | + + + + + + + | Performing | Address | City/State/[facility] Cent[facility]ode | Phone Number | | Organization | | | | + + + + + | [facility] | [address] | [place] [address] | [phone] | + + + + + CBC [...] [facility] | | | | performed at [facility], [address] | | LABORATORY | | | | [address], | | | | | | [place] [address] | | | | + + + + + + + + | Specimen | + + | Blood | + + + + + + + | Performing | Address | City/State/Zipcode | Phone Number | | Organization | | | | + + + + + | [facility] | [address] | [place] [address] | [phone] | + + + + + Phosphorus (09/05/2019 5:26 AM PDT) + + + + + + | Component | Value | Ref Range | Performed | Pathologist | | | | | At | Signature | + + + + + + | Phosphorus | 4.8Comment: Testing | 2.3 - 4.8 mg/dL | [facility] | | | | performed at [facility], [address] | | LABORATORY | | | | [address], | | | | | | [place] [address] | | | | + + + + + + + + | Specimen | + + | Blood | + + + + + + + | Performing | Address | City/State/Zipcode | Phone Number | | Organization | | | | + + + + + | [facility] | [address] | [place] [address] | [phone] | + + + + + Magnesium (09/05/2019 5:26 AM PDT) + + + + + + | Component | Value | Ref Range | Performed | Pathologist | | | | | At | Signature | + + + + + + | Magnesium | 3.0 (H)Comment: Testing | 1.7 - 2.4 mg/dL | [facility] | | | | performed at [facility], [address] | | LABORATORY | | | | [address], | | | | | | [place] [address] | | | | + + + + + + + + | Specimen | + + | Blood | + + + + + + + | Performing | Address | City/State/Zipcode | Phone Number | | Organization | | | | + + + + + | [facility] | [address] | [place] [address] | [phone] | + + + + + Basic [...] | 9.4 | 8.5 - 10.5 | [facility] | | | | | mg/dL | LABORATORY | | + + + + + + | Estimated | 5 (L)Comment: GFR <60: | >60 | [facility] | | | GFR | [...] performed at [facility], [address] | | | | | | [facility], | | | | | | [place] [address] | | | | + + + + + + + + | Specimen | + + | Blood | + + + + + + + | Performing | Address | City/State/Zipcode | Phone Number | | Organization | | | | + + + + + | [facility] | [address] | [place] [address] | [phone] | + + + + + CBC [...] | | | | | [place] [address] | | | | + + + + + + + + | Specimen | + + | Blood | + + + + + + + | Performing | Address | City/State/Zipcode | Phone Number | | Organization | | | | + + + + + | [facility] | [address] | [place] [address] | [phone] | + + + + + ECG [...] [facility] | | | | performed at [facility], [address] | | LABORATORY | | | | [address], | | | | | | [place] [address] | | | | + + + + + + + + | Specimen | + + | Blood | + + + + + + + | Performing | Address | City/State/Zipcode | Phone Number | | Organization | | | | + + + + + | [facility] | [address] | [place] [address] | [phone] | + + + + + Magnesium (09/04/2019 4:59 AM PDT) + + + + + + | Component | Value | Ref Range | Performed | Pathologist | | | | | At | Signature | + + + + + + | Magnesium | 2.5 (H)Comment: Testing | 1.7 - 2.4 mg/dL | [facility] | | | | performed at [facility], [address] | | LABORATORY | | | | [address], | | | | | | [place] [address] | | | | + + + + + + + + | Specimen | + + | Blood | + + + + + + + | Performing | Address | City/State/Zipcode | Phone Number | | Organization | | | | + + + + + | [facility] | [address] | [place] [address] | [phone] | + + + + + Basic [...] 8 (L)Comment: GFR <60: | >60 | [facility] | | | GFR | [...] performed at [facility], [address] | | | | | | [facility], | | | | | | [place] [address] | | | | + + + + + + + + | Specimen | + + | Blood | + + + + + + + | Performing | Address | City/State/Zipcode | Phone Number | | Organization | | | | + + + + + | [facility] | [address] | [place] [address] | [phone] | + + + + + CBC [...] | | | | | [place] [address] | | | | + + + + + + + + | Specimen | + + | Blood | + + + + + + + | Performing | Address | City/State/Zipcode | Phone Number | | Organization | | | | + + + + + | [facility] | [address] | [place] [address] | [phone] | + + + + + Culture, [...] Special | Testing performed at | | [facility] | | | Requests | [facility];[address] | | LABORATORY | | | | [address];[place] [address] | | | | + + + + + + | RESULT | NO GROWTH 6 DAYS | | [facility] | | | | | | LAB[facility]AT[facility] | | + + + + + + | RESULT | Testing performed at | | [facility] | | | | T[facility], [address] | | LABORATORY | | | | [place] | | | | | | [id number]: Testing | | | | | | performed at [facility], [address] | | | | | | [place] | | | | | | [address] | | | | + + + + + + + + | Specimen | + + | Blood | + + + + + + + | Performing | Address | City/State/Zipcode | Phone Number | | Organization | | | | + + + + + | [facility] | [address] | [place] [address] | [phone] | + + + + + POC [...] | | | POC | performed at [facility];[address] | g/dL | LABORATORY | | | | [address];[place] | | | | | | [address] | | | | + + + + + + + + | Specimen | + + | | + + + + + + + | Performing | Address | City/State/Zipcode | Phone Number | | Organization | | | | + + + + + | [facility] | [address] | [place] [address] | [phone] | + + + + + Culture, [...] LABORATORY | | | | Blvd;[place] [address] | | | | + + + [...] | [facility] | | | Result | [facility], [address] | | LABORATORY | | | | [facility] [place] | | | | | | [address] | | | | + + + [...] Comment: Testing | | | performed at [facility], | | | [address], | | | [place] [address] | +---+ + + + + + + | Performing | Address | City/State/Zipcode | Phone Number | | Organization | | | | + + + + + | [facility] | [address] | [place] [address] | [phone] | + + + + + POC [...] | | | POC | performed at [facility];[address] | g/dL | LABORATORY | | | | [address];[place], [place] | | | | | | [address] | | | | + + + + + + + + | Specimen | + + | | + + + + + + + | Performing | Address | City/State/Zipcode | Phone Number | | Organization | | | | + + + + + | [facility] | [address] | [place] [address] | [phone] | + + + + + Culture, [...] LABORATORY | | | | Blvd;[place] [address] | | | | + + + [...] | [facility] | | | Result | [facility];[address] [place] [address] | | LABORATORY | | | | Blvd;[place] [address] | | | | + + + [...] Comment: Testing | | | performed at [facility], | | | [address], | | | [place] [address] | +---+ + + + + + + | Performing | Address | City/State/Zipcode | Phone Number | | Organization | | | | + + + + + | [facility] | [address] | [place] [address] | [phone] | + + + + + , Serum, Qual (09/03/2019 3:11 PM PDT) + + + + + + | Component | Value | Ref Range | Performed | Pathologist | | | | | At | Signature | + + + + + + | Preg, Serum | NEGATIVEComment: Testing | NEG | [facility] | | | | performed at [facility];[address] | | LABORATORY | | | | [address];[place], [place] | | | | | | [address] | | | | + + + + + + + + | Specimen | + + | Blood | + + + + + + + | Performing | Address | City/State/Zipcode | Phone Number | | Organization | | | | + + + + + | [facility] | [address] | [place] [address] | [phone] | + + + + + ECG [...] (500), | | | | | | field map editor Jimi King | | | | [...] [facility] | | | | performed at [facility];[address] | | LABORATORY | | | | [address];[place] | | | | | | [address] | | | | + + + + + + + + | Specimen | + + | Blood | + + + + + + + | Performing | Address | City/State/Zipcode | Phone Number | | Organization | | | | + + + + + | [facility] | [address] | [place] [address] | [phone] | + + + + + Comprehensive [...] 5 (L)Comment: GFR <60: | >60 | [facility] | | | GFR | [...] | | | | | performed at [facility];[address] | | | | | | [facility];[place], [place] | | | | | | [address] | | | | + + + + + + + + | Specimen | + + | Blood | + + + + + + + | Performing | Address | City/State/Zipcode | Phone Number | | Organization | | | | + + + + + | [facility] | [address] | [place] [address] | [phone] | + + + + + CBC [...] | | | | | performed at [facility];[address] | | | | | | [address];[place] | | | | | | [address] | | | | + + + + + + + + | Specimen | + + | Blood | + + + + + + + | Performing | Address | City/State/Zipcode | Phone Number | | Organization | | | | + + + + + | [facility] | [address] | [place] [address] | [phone] | + + + + + documented [...]
--- OUTSIDE RECORDS SUMMARY | ~2020-04-05 | XMS | Encounter Summary ---
Demographics + + + | Address | [address] | | | [place] [address] | + + + | Home Phone [...] [place], [place] | | | | | [address] | | + + + + + | Lydia Palm | ECON | [place], [place] | | | | | [address] | | + + + + + | melinda METZ" | ECON | [place], [place] | | | [place] | | [address] | | + + + + + | Jose C Oconnor | ECON | [place] | | | | | [place] | | | | | [address] | | + + + + + Care Team Providers + +------+ + | Care Shelf Stocker Name | Role | Phone | + [...] | | | | Therapy | Dr. Roasdo | Alonzo Correa | Infusion [address] | | | | | Sunny | Rom[address] | Patricia [address]sie[address] | | | | | [place] | [address] | [address], | | | | | daily thru | [address] | [place] [address] | | | | | February 23, | [place], [place] | Phone: | | | | | Peritonitis | [address] | [phone] | | | | | Procedures | Phone: | Fax: | | | | | [place] | [phone] | [phone] | | | | | [place], | Fax: | | | | | | [address] [place] | [phone] | | | | | | IV [...] + + | 02/16/ | Hospital | [facility] | Unknown, | Peritonitis | | 2019 | Encounter | MED CTR OP INFUSION | MD Iris Kinney | associated with | | | | [address] | [phone] | peritoneal dialysis, | | | | [place] | (Fax) | initial encounter | | | | [address] | | (HCC) (Primary Dx) | | | | [phone] | | | +--------+ + + + [...] signed by: Gifty Diaz RN 02/16/2019 17:50 mily, Gifty Diaz RN - 02/17/20 4:46 PM PDT Vitals: 02/16/19 1645 BP: [...]
--- OUTSIDE RECORDS SUMMARY | ~2020-04-05 | XMS | Encounter Summary ---
Demographics + + + | Address | [address] | | | [place] [address] | + + + | Home Phone | | + + + | Preferred Language | Unknown | + + + | Marital Status | | + + + | Church Affiliation | Unknown | + + + | Race | Unknown | + + + | Ethnic Group | Unknown | + + + Author + + + | Author | [facility] | | | and [place] | + + + | Organization | [facility] | | | and [place] | + + + | Address | Unknown | + + + | Phone | Unavailable | + + + Support + + + + + | Name | Relationship | Address | Phone | + + + + + | Lyubov Smalls | ECON | [place], [place] | | | | | [address] | | + + + + + | Lydia Palm | ECON | [place], [place] | | | | | [address] | | + + + + + | melinda METZ" | ECON | [place], [place] | | | [place] | | [address] | | + + + + + | Jose C Oconnor | ECON | [place] | | | | | [place] | | | | | [address] | | + + + + + Care Team Providers + +------+ + | Care Transportation Worker Name | Role | Phone | [...] + + | 07/22/ | Clinical | [facility] | Nidhi Whitaker, | Surgical wound | | 2019 | Support | VASCULAR SURGERY | RN | dehiscence, | | | | [address] | | subsequent encounter | | | | [place] | | (Primary Dx) | | | | [address] | | | | | | [phone] | | | +--------+ + + + [...] wound check/ wound vac. Patient is seeing [facility] out patient wound car e 3 [...] Full report given to Elisha MARTINEZ at [facility], Elisha will update [facility] next Friday regarding patient. Report also given to Dr Pederson. Patient to follow up in 2 [facility] on 08/10/2019. d ocumented in this encounter Plan of Treatment Not on filedocumented as of this encounter Visit Diagnoses + + | Diagnosis | + + | Surgical wound dehiscence, subsequent encounter - Primary | + + documented in this encounter
--- OUTSIDE RECORDS SUMMARY | ~2020-04-05 | XMS | Encounter Summary ---
Demographics + + + | Address | [address] | | | [place] [address] | + + + | Home Phone [...] [place], [place] | | | | | [address] | | + + + + + | Lydia Palm | ECON | [place], [place] | | | | | [address] | | + + + + + | melinda METZ" | ECON | [place], [place] | | | [place] | | [address] | | + + + + + | Jose C Oconnor | ECON | [place] | | | | | [place] | | | | | [address] | | + + + + + Care Team Providers + +------+ + | Care Dance Hall Hostess Name | Role | Phone | + [...] [address] [place] | [place] [address] | | | | | [address] | [phone] | | | | | [address] | | | | | | [phone] | | | +--------+ + + + [...]
--- OUTSIDE RECORDS SUMMARY | ~2020-04-05 | XMS | Encounter Summary ---
Demographics + + + | Address | [address] | | | [place] [address] | + + + | Home Phone [...] [place], [place] | | | | | [address] | | + + + + + | Lydia Palm | ECON | [place], [place] | | | | | [address] | | + + + + + | melinda METZ" | ECON | [place], [place] | | | [place] | | [address] | | + + + + + | Jose C Oconnor | ECON | [place] | | | | | [place] | | | | | [address] | | + + + + + Care Team Providers + +------+ + | Care Bottom Filler Name | Role | Phone | + +------+ + | Juan F Whitley DO | PCP | | + +------+ + Encounter Details +--------+ + + + + | Date | Type | Department | Care Team | Description | +--------+ + + + + | 05/04/ | Hospital | [facility] | Conversion | | | 2019 | Encounter | [facility] | Transaction, | | | | | CLINIC [address] | Provider Unknown | | | | | [place], [place] | [phone] | | | | | [address] | | | | | | [phone] | | | +--------+ + + + [...] + + + | Blood Pressure | 116/61 | 05/04/2019 2:17 PM | | | | | PDT | | + + + + + | Pulse | - | - | | + [...] + + + + | Weight | 81 kg (178 lb 9.1 | 05/04/2019 2:17 PM | | | | oz) | PDT | | + + + + + | Height | 157.5 cm (5' 2") | 05/04/2019 2:17 PM | | | | | PDT | | + + + + + | Body Mass Index | 32.66 | 05/04/2019 2:17 PM | | | | | PDT [...] + | MRSA NAAT | Timed | 05/04/2019 | | Results for this | | | | 2:24 PM | | procedure are in the | | | | PDT | | results section. | + +--------+ + + + | BASIC METABOLIC | Routin | 05/04/2019 | | Results for this | | PANEL | e | 2:24 PM | | procedure are in the | | | | PDT | | results section. | + +--------+ + + + documented in this encounter Results MRSA NAAT (05/04/2019 2:24 PM PDT) + + | Specimen | + + | | + + + + + | Narrative | Performed At | + + + | S[facility] NARES(NOSE) MRSA | EXTERNAL LAB | | PCR NEGATIVE Testing | | | performed at [facility];[address] [facility];[place] [address] | | + + + + +---------+ + + | Performing | Address | City/State/Zipcode | Phone Number | | Organization | | | | + +---------+ + + | EXTERNAL LAB | | | | + +---------+ + + Basic Metabolic Panel (05/04/2019 2:24 PM PDT) + + + + + + | Component | Value | Ref Range | Performed | Pathologist | | | | | At | Signature | + + + + + + | Na | 133 (L) | 135 - 145 | EXTERNAL | | | | | mmol/L | LAB | | + + + + + + | K | 5.6 (H)Comment: SPECIMEN | 3.5 - 4.9 | [...] + + + + | Glucose, | 65Comment: SPECIMEN | 65 - 99 mg/dL | EXTERNAL | | | Fasting | SLIGHTLY HEMOLYZED | | LAB | | + + + + + + | BUN | 38 (H) | 8 - 25 mg/dL | EXTERNAL | | | | | | LAB | | + + + + + + | Creatinine | 9.0 (H)Comment: SPECIMEN | 0.50 - 1.00 | [...] | | | | | performed at [facility], [address] | | | | | [facility], | | | | | | [place] [address] | | | | + + + [...]
--- OUTSIDE RECORDS SUMMARY | ~2020-04-05 | XMS | Encounter Summary ---
Demographics + + + | Address | [address] | | | [place] [address] | + + + | Home Phone | | + + + | Preferred Language | Unknown | + + + | Marital Status | | + + + | Christian Affiliation | Unknown | + + + | Race | Unknown | + + + | Ethnic Group | Unknown | + + + Author + + + | Author | [facility] | | | and [place] | + + + | Organization | [facility] | | | and [place] | + + + | Address | Unknown | + + + | Phone | Unavailable | + + + Support + + + + + | Name | Relationship | Address | Phone | + + + + + | Lyubov Smalls | ECON | [place], [place] | | | | | [address] | | + + + + + | Lydia Palm | ECON | [place], [place] | | | | | [address] | | + + + + + | melinda METZ" | ECON | [place], [place] | | | [place]ba | | [address] | | + + + + + | Jose C Oconnor | ECON | [place] | | | | | [place] | | | | | [address] | | + + + + + Care Team Providers + +------+ + | Care Airdrop Systems Technician Name | Role | Phone | + +------+ + | Juan F Whitley DO | PCP | | + +------+ + Encounter Details +--------+ + + + + | Date | Type | Department | Care Team | Description | +--------+ + + + + | 04/22/ | Orders Only | [facility] | Man Jeronimo, | | | 2018 | | VASCULAR SURGERY | PA-C [address] | | | | | ULTRASOUND [address] | [address], | | | | | [place] | [place] [address] | | | | | [place] | [phone] | | | | | [address] | | | | | | [phone] | | | +--------+ + + + [...] + + | Migue Schumacher Conversion - 07/01/2019 2:07 PM PDT UV [...]
--- OUTSIDE RECORDS SUMMARY | ~2020-04-05 | XMS | Encounter Summary ---
Demographics + + + | Address | [address] | | | [place] [address] | + + + | Home Phone | | + + + | Preferred Language | Unknown | + + + | Marital Status | | + + + | Evangelical Affiliation | Unknown | + + + | Race | Unknown | + + + | Ethnic Group | Unknown | + + + Author + + + | Author | [facility] | | | and [place] | + + + | Organization | [facility] | | | and [place] | + + + | Address | Unknown | + + + | Phone | Unavailable | + + + Support + + + + + | Name | Relationship | Address | Phone | + + + + + | Lyubov Smalls | ECON | [place], [place] | | | | | [address] | | + + + + + | Lydia Palm | ECON | [place], [place] | | | | | [address] | | + + + + + | melinda METZ" | ECON | [place], [place] | | | [place] | | [address] | | + + + + + | Jose C Oconnor | ECON | [place] | | | | | [place] | | | | | [address] | | + + + + + Care Team Providers + +------+ + | Care Trench Digger Name | Role | Phone | + +------+ + | Juan F Whitley DO | PCP | | + +------+ + Encounter Details +--------+ + + + + | Date | Type | Department | Care Team | Description | +--------+ + + + + | 03/31/ | Emergency | [facility] | Ronald Hollins, | No problem, feared | | 2018 | | MEDICAL CENTER | [address] [address] | complaint unfounded; | | | | EMERGENCY CENTER | [place] [address] | Encounter for | | | | [address] | [phone] | postoperative wound | | | | [place], [place] | | check | | | | [address] | | | | | | [phone] | | | +--------+ + + + [...]
--- OUTSIDE RECORDS SUMMARY | ~2020-04-05 | XMS | Encounter Summary ---
Demographics + + + | Address | [address] | | | [place] [address] | + + + | Home Phone [...] [place], [place] | | | | | [address] | | + + + + + | Lydia Palm | ECON | [place], [place] | | | | | [address] | | + + + + + | melinda METZ" | ECON | [place], [place] | | | [place] | | [address] | | + + + + + | Jose C Oconnor | ECON | [place] | | | | | [place] | | | | | [address] | | + + + + + Care Team Providers + +------+ + | Care Outside Plant Technician Name | Role | Phone | + +------+ + | Juan F Whitley DO | PCP | | + +------+ + Encounter Details +--------+ + + + + | Date | Type | Department | Care Team | Description | +--------+ + + + + | 03/11/ | Hospital | [facility] | Qasim Pederson MD | | | 2019 | Encounter | [facility] | [address] | | | | | OPER[address] RO[address] | [place] | | | | | [place] | [address] | | | | | [facility] | | | | | | [address] | | | | | | [phone] | | | +--------+ + + + [...] Note by Janie Suresh RN at 03/11/19 7736 Author: Janie Suresh RN Service: (none) Author Type: Registered Nurse Filed: 03/11/192017 Date of Service: 03/11/191613 Status: Signed Implementation Coordinator: Janie Suresh RN (Registered Nurse) Discharge instructions [...] Notes by Frandy Alex RPH at 03/11/19 1441 Author: Frandy Alex RPH Service: Pharmacy Author Type: Pharmacist Filed: 03/11/19 1442 Date of Service: 03/11/191444 Status: Signed Implementation Coordinator: Frandy Alex RPH (Pharmacist) Clinical Pharmacy Note: [...] Note by Esthela Nieto RN at 03/11/19 3690 Author: Esthela Nieto RN Service: General Surgery Author Type: Registered Nurse Filed: 03/11/19 6343 Date of Service: 03/11/19 141 Status: Signed Implementation Coordinator: Esthela Nieto, RN (Registered Nurse) Pt c/o [...] | | | QUALITATIVE | performed at [facility] | | LAB | | | | [address];[place], [place] | | | | | | [address] | | | | + + + [...] | | | | | | MDRD IDNY traceable | | | | | | equation.Testing | | | | | | performed at [facility] | | | | | | [facility];[place], [place] | | | | | | [address] | | | | + + + [...]
--- OUTSIDE RECORDS SUMMARY | ~2020-04-05 | XMS | Encounter Summary ---
Demographics + + + | Address | [address] | | | [place] [address] | + + + | Home Phone | | + + + | Preferred Language | Unknown | + + + | Marital Status | | + + + | Zoroastrianism Affiliation | Unknown | + + + | Race | Unknown | + + + | Ethnic Group | Unknown | + + + Author + + + | Author | [facility] | | | and [place] | + + + | Organization | [facility] | | | and [place] | + + + | Address | Unknown | + + + | Phone | Unavailable | + + + Support + + + + + | Name | Relationship | Address | Phone | + + + + + | Lyubov Smalls | ECON | [place], [place] | | | | | [address] | | + + + + + | Lydia Palm | ECON | [place], [place] | | | | | [address] | | + + + + + | melinda METZ" | ECON | [place], [place] | | | [place] | | [address] | | + + + + + | Jose C Oconnor | ECON | [place] | | | | | [place] | | | | | [address] | | + + + + + Care Team Providers + +------+ + | Care Manufacturing Project Manager Name | Role | Phone | [...] | | | | | disease) | [place] | | | | | | ([facility]) | [address] | | | | | | Procedures | Phone: | | | | | | VAS Ankle | [phone] | | | | | | Brachial | Fax: | | | | | | Index | [phone] | | | | | | Resting | | | +--------+--------+ + + + + Reason for Visit +---------+ + | Reason | Comments | +---------+ + | Consult | AVF creation | +---------+ + Encounter Details +--------+---------+ + + + | Date | Type | Department | Care Team | Description | +--------+---------+ + + + | 12/23/ | Office | [facility] | Mundo Ramos MD | PAD (peripheral | | 2020 | Visit | VASCULAR SURGERY | [address] | artery disease) | | | | [address] | [place] | ([facility]) (Primary Dx); | | | | [place] | [address] | ESRD on dialysis | | | | [address] | [phone] | ([facility]) | | | | [phone] | | | +--------+---------+ + + + [...] 10/25/15 showed normal sized kidneys. She initiated PLASTICS NURSE with PD 10/28/15. 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 GERD (gastroesophageal reflux disease) Hypercalcemia 09/07/2017 Hyperphosphatemia [...] GRAFT CREATION; Surgeon: Qasim Pederson MD; Location: [facility] MAIN OR AV FISTULA REPAIR N/A 08/26/2019 Procedure: REVISION LEFT AXILLARY AVG; WILL NEED C-ARM, OCCLUSION BALLOONS, VIABAHN STENTS ; Surgeon: Qasim Pederson MD; Location: [facility] MAIN OR AV FISTULA REPAIR Left 09/03/2019 Procedure: Resection of left arm AV graft with wound vac placement; Surgeon: Lexi Posada; Location: [facility] MAIN OR CATHETER REMOVAL 02/04/2019 Procedure: DIALYSIS CATHETER - REMOVAL; Surgeon: Qasim Pederson MD; Location: [facility] MAIN OR ; Service: Vascular; Laterality: N/A; Infected PD catheter removal DEBRIDEMENT Left 07/08/2019 Procedure: LEFT AXILLA WOUND DEBRIDEMENT, WASHOUT AND POSSIBLE WOUND VAC PLACEMENT; Surge on: Qasim Pederson MD; Location: [facility] MAIN OR OTHER SURGICAL HISTORY Left 03/11/2019 AV FISTULA PLACEMENT - Procedure: AV FISTULA; Surgeon: Qasim Pederson MD; Location: [facility]; Service: Vascular; Laterality: Left; OTHER SURGICAL HISTORY HARDWARE PRESENT OTHER SURGICAL HISTORY Right 01/2019 chest wall OTHER SURGICAL HISTORY Left 05/06/2019 AV GRAFT CREATION - Procedure: AV GRAFT CREATION; Surgeon: Qasim Pederson MD; Location: [facility] MAIN OR; Service: Vascular; Laterality: Left; bovine carotid graft OTHER SURGICAL HISTORY Left 05/26/2019 WOUND VAC PLACEMENT/REPLACEMENT - Procedure: WOUND VAC - PLACEMENT - REPLACEMENT; Surgeon : Qasim Pederson MD; Location: [facility] MAIN OR; Service: Vascular; Laterality: Left; PERITONEAL CATHETER PLACEMENT/REMOVAL 10/28/2015 Procedure: LAPAROSCOPIC - PERITONEAL DIALYSIS CATH INSERTION; Surgeon: Mundo Ramos MD; Lo cation: [facility] MAIN OR; Service: Vascular; Laterality: N/A; UPPER GASTROINTESTINAL ENDOSCOPY 09/10/2017 Procedure: ESOPHAGOGASTRODUODENOSCOPY; Surgeon: Beena Peters MD; Location: [facility] ENDOSCOP Y; Service: Gastroenterology; Laterality: [...] CV: No peripheral edema, rate regular SKIN: [place], warm, dry without rash/lesion MS: ROM not [...] | | Panel | | e | ([facility]) | starting 12/23/2019 | | | | | | until 12/23/2020 | + +------+--------+ + + | CBC no Differential | Lab | Routin | ESRD on dialysis | 1 Occurrences | | | | e | ([facility]) | starting 12/23/2019 | | | [...]
--- OUTSIDE RECORDS SUMMARY | ~2020-04-05 | XMS | Encounter Summary ---
Demographics + + + | Address | [address] | | | [place] [address] | + + + | Home Phone [...] [place], [place] | | | | | [address] | | + + + + + | Lydia Palm | ECON | [place], [place] | | | | | [address] | | + + + + + | melinda METZ" | ECON | [place], [place] | | | [place] | | [address] | | + + + + + | Jose C Oconnor | ECON | [place] | | | | | [place] | | | | | [address] | | + + + + + Care Team Providers + +------+ + | Care Crime Analyst Name | Role | Phone | [...] [place] | | | | | | [address] | | | | | | [phone] | | | +--------+ + + + [...]
--- OUTSIDE RECORDS SUMMARY | ~2020-04-05 | XMS | Encounter Summary ---
Demographics + + + | Address | [address] | | | [place] [address] | + + + | Home Phone [...] [place], [place] | | | | | [address] | | + + + + + | Lydia Palm | ECON | [place], [place] | | | | | [address] | | + + + + + | melinda METZ" | ECON | [place], [place] | | | [place] | | [address] | | + + + + + | Jose C Oconnor | ECON | [place] | | | | | [place] | | | | | [address] | | + + + + + Care Team Providers + +------+ + | Care Glove Examiner Name | Role | Phone | + [...] [address] [place] | [place] [address] | | | | | [address] | [phone] | | | | | [address] | | | | | | [phone] | | | +--------+ + + + [...]
--- OUTSIDE RECORDS SUMMARY | ~2020-04-05 | XMS | Encounter Summary ---
Demographics + + + | Address | [address] | | | [place] [address] | + + + | Home Phone [...] [place], [place] | | | | | [address] | | + + + + + | Lydia Palm | ECON | [place], [place] | | | | | [address] | | + + + + + | melinda METZ" | ECON | [place], [place] | | | [place] | | [address] | | + + + + + | Jose C Oconnor | ECON | [place] | | | | | [place] | | | | | [address] | | + + + + + Care Team Providers + +------+ + | Care Solar Manager Name | Role | Phone | + +------+ + | Juan F Whitley DO | PCP | | + +------+ + Encounter Details +--------+ + + + + | Date | Type | Department | Care Team | Description | +--------+ + + + + | 03/09/ | Hospital | [facility] | Conversion | | | 2019 | Encounter | CENTER [facility] | Transaction, | | | | | CLINIC [address] | Provider Unknown | | | | | [place], [place] | [phone] | | | | | [address] | | | | | | [phone] | | | +--------+ + + + [...] NEGATIVE Testing | | | performed at [facility] [place] [address];[place] [address] | | + + + + +---------+ + + | Performing | Address | City/State/Zipcode | Phone Number | | Organization | | | | + +---------+ + + | EXTERNAL LAB | | | | + +---------+ + + documented in this encounter Visit Diagnoses Not on filedocumented in this encounter
--- OUTSIDE RECORDS SUMMARY | ~2020-04-05 | XMS | Encounter Summary ---
Demographics + + + | Address | [address] | | | [place] [address] | + + + | Home Phone [...] [place], [place] | | | | | [address] | | + + + + + | Lydia Palm | ECON | [place], [place] | | | | | [address] | | + + + + + | melinda METZ" | ECON | [place], [place] | | | [place]ba | | [address] | | + + + + + | Jose C Oconnor | ECON | [place] | | | | | [place] | | | | | [address] | | + + + + + Care Team Providers + +------+ + | Care Bi Application Developer Name | Role | Phone | [...] | | | | | ([facility]) | | | | | [...] + + | 08/26/ | Surgery | [facility] | Qasim Pederson MD | REVISION LEFT | | 2019 | | [facility] | [address] | AXILLARY AVG; WILL | | | | OPERATING ROOM [address] | [place], [place] | NEED C-ARM, | | | | [address] | [address] | [employer], | | | | [place], [place] | | [place] | | | | [address] | | | | | | [phone] | | | +--------+---------+ + + + [...] Physician Discharge Summary Patient ID: Ramona Oconnor [id number] 39 y.o. 1980 Admit date: 08/26/2019 Discharge [...] VERY important to follow up with Vascular tresa hart. Please continue taking the clindamycin every 6 [...] might be different f rom the original. [facility] Service: Vascular Surgery Progress Note Post-Op Day: 1 SUBJECTIVE Patient Summary: The patient is a 39 y.o. female with significant past medical histor y of ESRD who presented to [facility] with profuse bleeding from her left axillary AVG af ter wound packing was removed. Per emergency department physician report, the patient had ab out 250ml blood loss, venous bleeding. She received 2 units PRBC transfusion and 1Liter susana talloid. She has been hemodynamincally stable. Patient transferred to [facility] for emergency janine viviana and ligation [...] note [facility] Solderer Progress Note Ramonaandre Oconnor 39 y.o. Hospital Day: LOS: 2 [...] nt has been followed by the [facility] wound care clinic. She presented to [facility] ED from [facility] with profuse bleeding of her L axilla after her wound packing was remov ed. Per report EBL was 250 cc of venous blood. She received 1 L crystalloid and 2 units PRBC prior to arrival at [facility] and remained hemodynamically stable. Patient was transferred to [facility] for ligation of the AVG [...] Last HD 08/25. See Dr. Chi following, EQUIPMENT VALIDATION ENGINEER per nephrology. 1.5 L fluid restricti on in 24 hours per Nephrology. Renally dose medication and avoid nephrotoxins Monitor I/Os Monitor electrolytes. Hyperphosphatemia. Resolved. Continue home dose of Renvela once patient eating. Hyperkalemia. EQUIPMENT VALIDATION ENGINEER per Nephrology ID: Patient with nonhealing AVG wound. Followed by [facility] wound care clinic. Patient was not o [...] of all other procedures. BALJIT Guido 08/28/2019 mrita Steele RN - 08/27/2019 6:40 PM PDT12 hour chart check complete. Amrita Steele RN Man Jha PA- C - 08/27/2019 12:31 PM PDT [facility] Service: Vascular Surgery Progress Note Post-Op Day: 1 SUBJECTIVE Patient Summary: The patient is a 39 y.o. female with significant past medical histor y of ESRD who presented to [facility] with profuse bleeding from her left axillary AVG af ter wound packing was removed. Per emergency department physician report, the patient had ab out 250ml blood loss, venous bleeding. She received 2 units PRBC transfusion and 1Liter susana talloid. She has been hemodynamincally stable. Patient transferred to [facility] for emergency janine viviana and ligation [...] might be different from the ave maira. [facility] Service: Gas Torch Solderer Progress Note Ramona Oconnor 39 y.o. Hospital [...] nt has been followed by the [facility] wound care clinic. She presented to [facility] ED from [facility] with profuse bleeding of her L axilla after her wound packing was remov ed. Per report EBL was 250 cc of venous blood. She received 1 L crystalloid and 2 units PRBC prior to arrival at [facility] and remained hemodynamically stable. Patient was transferred to [facility] for ligation of the AVG [...] nephrology in AM no urgent need for EQUIPMENT VALIDATION ENGINEER overnight. Renally dose medication and avoid nephrotoxins Monitor I/Os Monitor electrolytes. Hyperphosphatemia. Continue home dose of Renvela. ID: Patient with nonhealing AVG wound. Followed by [facility] wound care clinic. Patient was not o [...] had accessed port in rout e to [facility]. This RN started PIV to right upper arm/AC area when patient brought to pacu. This info reported to THUMB SEWER. 8: 33 PM PDTdocumented in this encounter [...] + | NASRA PLASCENCIA, | Routin | 08/26/2019 | | Results [...] Testing | 2.3 - 4.8 mg/dL | [facility] | | | | performed at [facility];[address] | | LABORATORY | | | | [address];[place], [place] | | | | | | [address] | | | | + + + + + + + + | Specimen | + + | Blood | + + + + + + + | Performing | Address | City/State/Zipcode | Phone Number | | Organization | | | | + + + + + | [facility] | [address] | [place] [address] | [phone] | + + + + + Magnesium (08/28/2019 4:02 AM PDT) + + + + + + | Component | Value | Ref Range | Performed | Pathologist | | | | | At | Signature | + + + + + + | Magnesium | 2.5 (H)Comment: Testing | 1.7 - 2.4 mg/dL | [facility] | | | | performed at [facility];[address] | | LABORATORY | | | | [address];[place] | | | | | | [address] | | | | + + + + + + + + | Specimen | + + | Blood | + + + + + + + | Performing | Address | City/State/Zipcode | Phone Number | | Organization | | | | + + + + + | [facility] | [address] | [place] [address] | [phone] | + + + + + CBC [...] | | | Absolute | performed at [facility];[address] | K/uL | LABORATORY | | | | [address];[place] | | | | | | [address] | | | | + + + + + + + + | Specimen | + + | Blood | + + + + + + + | Performing | Address | City/State/Zipcode | Phone Number | | Organization | | | | + + + + + | [facility] | [address] | [place] [address] | [phone] | + + + + + Basic [...] 8.3 (L) | 8.5 - 10.5 | [facility] | | | | | mg/dL | LABORATORY | | + + + + + + | Estimated | 8 (L)Comment: GFR <60: | >60 | [facility] | | | GFR | CHRONIC [...] | | | | | | MDRD [facility] traceable | | | | | | equation.Testing | | | | | | performed at [facility] | | | | | | [facility];[place], [place] | | | | | | [address] | | | | + + + + + + + + | Specimen | + + | Blood | + + + + + + + | Performing | Address | City/State/Zipcode | Phone Number | | Organization | | | | + + + + + | [facility] | [address] | [place] [address] | [phone] | + + + + + Hepatitis [...] | | LABORATORY | | | | [facility], [address] | | | | | | [place] | | | | | | [address] | | | | + + + + + + + + | Specimen | + + | Blood | + + + + + + + | Performing | Address | City/State/Zipcode | Phone Number | | Organization | | | | + + + + + | [facility] | [address] | [place] [address] | [phone] | + + + + + Potassium (08/27/2019 7:52 PM PDT) + + + + + + | Component | Value | Ref Range | Performed | Pathologist | | | | | At | Signature | + + + + + + | K | 3.8Comment: Testing | 3.5 - 4.9 | [facility] | | | | performed at [facility];[address] | mmol/L | LABORATORY | | | | [address];[place] | | | | | | [address] | | | | + + + + + + + + | Specimen | + + | Blood | + + + + + + + | Performing | Address | City/State/Zipcode | Phone Number | | Organization | | | | + + + + + | [facility] | [address] | [place] [address] | [phone] | + + + + + Hepatitis [...] [address] | | | | | | [place], [place] | | | | | | [address] | | | | + + + + + + + + | Specimen | + + | Blood - Entire left | | ankle (body | | structure) | + + + + + + + | Performing | Address | City/State/Zipcode | Phone Number | | Organization | | | | + + + + + | [facility] | [address] | [place] [address] | [phone] | + + + + + POC Glucose (08/27/2019 9:29 AM PDT) + + + + + + | Component | Value | Ref Range | Performed | Pathologist | | | | | At | Signature | + + + + + + | Glucose, | 81Comment: Testing | 65 - 99 mg/dL | [facility] | | | POC | performed at [facility];[address] | | LABORATORY | | | | [address];[place] | | | | | | [address] | | | | + + + + + + + + | Specimen | + + | | + + + + + + + | Performing | Address | City/State/Zipcode | Phone Number | | Organization | | | | + + + + + | [facility] | [address] | [place] [address] | [phone] | + + + + + Basic [...] | LABORATORY | | | | RESULTS VERIFIEDGONZÁLEZLO W | | | | | | [...] 5 (L)Comment: GFR <60: | >60 | [facility] | | | GFR | CHRONIC [...] | | | | | | MDRD [facility] traceable | | | | | | equation.Testing | | | | | | performed at [facility];[address] | | | | | | [address] [facility];[place], [place] | | | | | | [address] | | | | + + + + + + + + | Specimen | + + | Blood | + + + + + + + | Performing | Address | City/State/Zipcode | Phone Number | | Organization | | | | + + + + + | [facility] | [address] | [place] [address] | [phone] | + + + + + Basic [...] 5 (L)Comment: GFR <60: | >60 | [facility] | | | GFR | CHRONIC [...] | | | | | | MDRD [facility] traceable | | | | | | equation.Testing | | | | | | performed at [facility];[address] | | | | | | [address] [facility];[place], [place] | | | | | | [address] | | | | + + + + + + + + | Specimen | + + | | + + + + + + + | Performing | Address | City/State/Zipcode | Phone Number | | Organization | | | | + + + + + | [facility] | [address] | [place] [address] | [phone] | + + + + + Phosphorus (08/27/2019 4:14 AM PDT) + + + + + + | Component | Value | Ref Range | Performed | Pathologist | | | | | At | Signature | + + + + + + | Phosphorus | 5.7 (H)Comment: Testing | 2.3 - 4.8 mg/dL | [facility] | | | | performed at [facility];[address] | | LABORATORY | | | | [address];[place], [place] | | | | | | [address] | | | | + + + + + + + + | Specimen | + + | Blood | + + + + + + + | Performing | Address | City/State/Zipcode | Phone Number | | Organization | | | | + + + + + | [facility] | [address] | [place] [address] | [phone] | + + + + + Magnesium (08/27/2019 4:14 AM PDT) + + + + + + | Component | Value | Ref Range | Performed | Pathologist | | | | | At | Signature | + + + + + + | Magnesium | 2.8 (H)Comment: Testing | 1.7 - 2.4 mg/dL | [facility] | | | | performed at [facility];[address] | | LABORATORY | | | | [address];[place] | | | | | | [address] | | | | + + + + + + + + | Specimen | + + | Blood | + + + + + + + | Performing | Address | City/State/Zipcode | Phone Number | | Organization | | | | + + + + + | [facility] | [address] | [place] [address] | [phone] | + + + + + CBC [...] | | performed at [facility] | | | | | | [address];[place], [place] | | | | | | [address] | | | | + + + + + + + + | Specimen | + + | Blood | + + + + + + + | Performing | Address | City/State/Zipcode | Phone Number | | Organization | | | | + + + + + | [facility] | [address] | [place] [address] | [phone] | + + + + + Culture, [...] Special | Testing performed at | | [facility] | | | Requests | [facility];[address] | | LABORATORY | | | | [address];[place] [address] | | | | + + + + + + | RESULT | NO GROWTH 6 DAYS | | [facility] | | | | | | LABORATORY | | + + + + + + | RESULT | Testing performed at | | [facility] | | | | TCL, [address] [facility] | | LABORATORY | | | | [place], [place] | | | | | | [address]Vtqlywd: Testing | | | | | | performed at [facility], [facility] | | | | | | [address], [place] | | | | | | [address] | | | | + + + + + + + + | Specimen | + + | Blood - Peripheral | | blood specimen | | (specimen) | + + + + + + + | Performing | Address | City/State/Zipcode | Phone Number | | Organization | | | | + + + + + | [facility] | [address] | [place] [address] | [phone] | + + + + + Procalcitonin (08/26/2019 9:29 PM PDT) + + + + + + | Component | Value | Ref Range | Performed | Pathologist | | | | | At | Signature | + + + + + + | PROCALCITON | 0.80 (H)Comment: | <0.5 ng/mL | [facility] | | | IN | INTERPRETIVE | [...] | | | at [facility];[address] | | | | | | Any;[place] [address] | | | | + + + + + + + + | Specimen | + + | Blood | + + + + + + + | Performing | Address | City/State/Zipcode | Phone Number | | Organization | | | | + + + + + | [facility] | [address] [facility] | [place] [address] | [phone] | + + + + + Lactic Acid (08/26/2019 9:29 PM PDT) + + + + + + | Component | Value | Ref Range | Performed | Pathologist | | | | | At | Signature | + + + + + + | Lactate, | 1.8Comment: Testing | 0.4 - 2.0 | [facility] | | | Serum | performed at [facility];[address] | mmol/L | LABORATORY | | | | [address];[place] | | | | | | [address] | | | | + + + + + + + + | Specimen | + + | Blood | + + + + + + + | Performing | Address | City/State/Zipcode | Phone Number | | Organization | | | | + + + + + | [facility] | [address] | [place] [address] | [phone] | + + + + + Culture, [...] | | LABORATORY | | | | Blvd;[place] [address] | | | | + + + + + + | RESULT | NO GROWTH 6 DAYS | | [facility] | | | | | | LABORATORY | | + + + + + + | RESULT | Testing performed at | | [facility] | | | | TCL, [address] [facility] | | LABORATORY | | | | [place] | | | | | | [address]Tridzwp: Testing | | | | | | performed at [facility], [address] | | | | | | [address] [place] | | | | | | [address] | | | | + + + [...] [facility] | [address] | [place] [address] | [phone] | + + + + + MRSA NAAT (08/26/2019 8:33 PM PDT) + + + + + + | Component | Value | Ref Range | Performed | Pathologist | | | | | At | Signature | + + + + + + | SOURCE: | KAYLA(NOSE) | | [facility] | | | | | | LABORATORY | | + + + + + + | Result | NEGATIVEComment: Testing | MRSNEG | [facility] | | | | performed at [facility];[address] | | LABORATORY | | | | [address];[place] | | | | | | [address] | | | | + + + + + + + + | Specimen | + + | Tissue - Both | | anterior nares (body | | structure) | + + + + + + + | Performing | Address | City/State/Zipcode | Phone Number | | Organization | | | | + + + + + | [facility] | [address] | [place] [address] | [phone] | + + + + + Basic [...] performed at [facility];[address] | | | | | | [address];[place] | | | | | | [address] | | | | + + + + + + + + | Specimen | + + | Blood | + + + + + + + | Performing | Address | City/State/Zipcode | Phone Number | | Organization | | | | + + + + + | [facility] | [address] | [place] [address] | [phone] | + + + + + Phosphorus (08/26/2019 8:31 PM PDT) + + + + + + | Component | Value | Ref Range | Performed | Pathologist | | | | | At | Signature | + + + + + + | Phosphorus | 6.9 (H)Comment: Testing | 2.3 - 4.8 mg/dL | [facility] | | | | performed at [facility] | | LABORATORY | | | | [address];[place], [place] | | | | | | [address] | | | | + + + + + + + + | Specimen | + + | Blood | + + + + + + + | Performing | Address | City/State/Zipcode | Phone Number | | Organization | | | | + + + + + | [facility] | [address] | [place] [address] | [phone] | + + + + + Magnesium (08/26/2019 8:31 PM PDT) + + + + + + | Component | Value | Ref Range | Performed | Pathologist | | | | | At | Signature | + + + + + + | Magnesium | 2.6 (H)Comment: Testing | 1.7 - 2.4 mg/dL | [facility] | | | | performed at [facility];[address] | | LABORATORY | | | | [address];[place] | | | | | | [address] | | | | + + + + + + + + | Specimen | + + | Blood | + + + + + + + | Performing | Address | City/State/Zipcode | Phone Number | | Organization | | | | + + + + + | [facility] | [address] | [place] [address] | [phone] | + + + + + CBC [...] LABORATORY | | | | performed at [facility];[address] | | | | | | [address];[place] | | | | | | [address] | | | | + + + + + + + + | Specimen | + + | Blood | + + + + + + + | Performing | Address | City/State/Zipcode | Phone Number | | Organization | | | | + + + + + | [facility] | [address] | [place] [address] | [phone] | + + + + + POC Glucose (08/26/2019 8:13 PM PDT) + + + + + + | Component | Value | Ref Range | Performed | Pathologist | | | | | At | Signature | + + + + + + | Glucose, | 129 (H)Comment: Testing | 65 - 99 mg/dL | [facility] | | | POC | performed at [facility];[address] | | LABORATORY | | | | [address];[place] | | | | | | [address] | | | | + + + + + + + + | Specimen | + + | | + + + + + + + | Performing | Address | City/State/Zipcode | Phone Number | | Organization | | | | + + + + + | [facility] | [address] | [place] [address] | [phone] | + + + + + POC [...] | | | POC | performed at [facility];888 | g/dL | LABORATORY | | | | [address];[place] | | | | | | [address] | | | | + + + + + + + + | Specimen | + + | | + + + + + + + | Performing | Address | City/State/Zipcode | Phone Number | | Organization | | | | + + + + + | [facility] | [address] | [place] [address] | [phone] | + + + + + Echo [...] + + | Performing | Address | City/State/[facility] | Phone Number | | Organization | [...] 14.6Comment: Testing | 11.6 - 15.5 | [facility] | | | POC | performed at [facility];[address] | g/dL | LABORATORY | | | | [address];[place], [place] | | | | | | [address] | | | | + + + + + + + + | Specimen | + + | | + + + + + + + | Performing | Address | City/State/Zipcode | Phone Number | | Organization | | | | + + + + + | [facility] | [address] | [place] [address] | [phone] | + + + + + documented [...] DAILY PRN, Constipation, | | | Starting [facility] 08/26/19 at 2010, If | | [...] | | | | 08/26/19 at 2011, First line | | | | | [...] Units | | (Comment | | Starting [facility] 08/26/19 at 1710, | | PM [...]
--- OUTSIDE RECORDS SUMMARY | ~2020-04-05 | XMS | Encounter Summary ---
Demographics + + + | Address | [address] | | | [place] [address] | + + + | Home Phone [...] [place], [place] | | | | | [address] | | + + + + + | Lydia Palm | ECON | [place], [place] | | | | | [address] | | + + + + + | melinda METZ" | ECON | [place], [place] | | | [place] | | [address] | | + + + + + | Jose C Oconnor | ECON | [place] [place] | | | | | [place] | | | | | [address] | | + + + + + Care Team Providers + +------+ + | Care Fruit Or Nut Farmworker Name | Role | Phone | + [...] | daily thru | [address] | [place] [address] | | | | | February 23, | [place], [place] | Phone: | | | | | Peritonitis | [address] | [phone] | | | | | Procedures | Phone: | Fax: | | | | | [place] | [phone] | [phone] | | | | | [place], | Fax: | | | | | | [address] [place] | [phone] | | | | | | IV [...] + + | 02/20/ | Hospital | [facility] | Unknown, | Peritonitis | | 2019 | Encounter | MED [facility] OP INFUSION | MD Iris Kinney | associated with | | | | [address] | [phone] | peritoneal dialysis, | | | | [place] | | initial encounter | | | | [address] | | (HCC) (Primary Dx) | | | | [phone] | | | +--------+ + + + [...]
--- OUTSIDE RECORDS SUMMARY | ~2020-04-05 | XMS | Encounter Summary ---
Demographics + + + | Address | [address] | | | [place] [address] | + + + | Home Phone [...] [place], [place] | | | | | [address] | | + + + + + | Lydia Palm | ECON | [place], [place] | | | | | [address] | | + + + + + | melinda METZ" | ECON | [place], [place] | | | [place] | | [address] | | + + + + + | Jose C Oconnor | ECON | [address] | | | | | [place] | | | | | [address] | | + + + + + Care Team Providers + +------+ + | Care Pharmacy Messenger Name | Role | Phone | + +------+ + | Juan F Whitley DO | PCP | | + +------+ + Encounter Details +--------+ + + + + | Date | Type | Department | Care Team | Description | +--------+ + + + + | 06/13/ | Orders Only | [facility] | Provider, | Infection and | | 2019 | | SYSTEM GENERIC OP | MD [address] | inflammatory | | | | CONVERSION [address] | Petey LE | reaction due to | | | | [address] [place] | [place] [address] | peritoneal dialysis | | | | [address] | | catheter, initial | | | | [phone] | | encounter (HCC) | +--------+ + [...]
--- OUTSIDE RECORDS SUMMARY | ~2020-04-05 | XMS | Encounter Summary ---
Demographics + + + | Address | [address] | | | [place] [address] | + + + | Home Phone [...] [place], [place] | | | | | [address] | | + + + + + | Lydia Palm | ECON | [place], [place] | | | | | [address] | | + + + + + | melinda METZ" | ECON | [place], [place] | | | [place] | | [address] | | + + + + + | Jose C Oconnor | ECON | [address] | | | | | [place] | | | | | [address] | | + + + + + Care Team Providers + +------+ + | Care Honey Blender Name | Role | Phone | + +------+ + | Unknown, Physician | PCP | | + +------+ + Encounter Details +--------+ + + + + | Date | Type | Department | Care Team | Description | +--------+ + + + + | 12/07/ | Preadmit | [facility] | Qasim Pederson MD | | | 2019 | Visit | CENTER PREADMIT | [address] | | | | | CLINIC [address] | [place], [place] | | | | | [place], [place] | [address] | | | | | [address] | | | | | | [phone] | | | +--------+ + + + [...] dialysis shunt, please contact your ysician at [phone]. Outpatient Medications Marked as Taking for the 12/07/19 encounter (Preadmit Visit) with [facility] ROOM 2 Medication Sig Instructions omeprazole (PRILOSEC) [...] | | | Absolute | performed at [facility];[address] | K/uL | LABORATORY | | | | [address];[place], [place] | | | | | | [address] | | | | + + + + + + + + | Specimen | + + | Blood | + + + + + + + | Performing | Address | City/State/Zipcode | Phone Number | | Organization | | | | + + + + + | [facility] | [address] | [place] [address] | [phone] | + + + + + Basic [...] 5 (L)Comment: GFR <60: | >60 | [facility] | | | GFR | [...] | | | | | performed at [facility] | | | | | | [facility];[place], [place] | | | | | | [address] | | | | + + + + + + + + | Specimen | + + | Blood | + + + + + + + | Performing | Address | City/State/Zipcode | Phone Number | | Organization | | | | + + + + + | [facility] | [address] [facility] [address] | [place] [address] | [phone] | + + + + + documented in this encounter Visit Diagnoses Not on filedocumented in this encounter
--- OUTSIDE RECORDS SUMMARY | ~2020-04-05 | XMS | Encounter Summary ---
Demographics + + + | Address | [address] | | | [place] [address] | + + + | Home Phone [...] [place], [place] | | | | | [address] | | + + + + + | Lydia Palm | ECON | [place], [place] | | | | | [address] | | + + + + + | melinda METZ" | ECON | [place], [place] | | | [place]ba | | [address] | | + + + + + | Jose C Oconnor | ECON | [place] | | | | | [place] | | | | | [address] | | + + + + + Care Team Providers + +------+ + | Care Boxcar Weigher Name | Role | Phone | [...] | | | | | | | ([facility]) Wound | | | | | [...] + + | 07/08/ | Anesthesia | [facility] | Claudia Cobb | | | 2019 | Event | [facility] | K, MARINE EQUIPMENT TEST ENGINEER [address] | | | | | OPERATING RO[address] [place], [place] | | | | | [facility] | [id number] | | | | | [place], [place] | | | | | | [address] | | | | | | [phone] | | | +--------+ + + + + Anesthesia Record + + + + + | Procedure Name | Responsible | Anesthesia Start | Anesthesia Stop Time | | | Anesthesiologist | Time | | + + + + + | LEFT AXILLA WOUND | Claudia Cobb, | 07/08/19 1147 | 07/08/19 1302 | | DEBRIDEMENT, WASHOUT | MARINE EQUIPMENT TEST ENGINEER | | | | AND POSSIBLE WOUND [...] 09/08/19901 by | | rissa | Forearm; qujl-mhu-lvjipe catheter | Brandin Gray RN | Fartun [...] | | | procedure documentation); Mask | MARINE EQUIPMENT TEST ENGINEER | MARINE EQUIPMENT TEST ENGINEER | | | Ventilation: N/A; Attempts: 1; [...] 11:49 | | | | | Starting [facility] 07/08/19 at 1149, | | AM PDT | | | | | Anesthesia Intra-op | | | | | | + +-------+ +---------+---+---+ +---+---+ | | | +---+---+ + +---------+ +---+---+---+ | sodium chloride 0.9% (NS) | New Bag | 07/08/20 | | | | | infusion Intravenous, CONTINUOUS | | 19 11:40 | | | | | PRN, Starting [facility] 07/08/19 at | | AM PDT | [...]
--- OUTSIDE RECORDS SUMMARY | ~2020-04-05 | XMS | Encounter Summary ---
Demographics + + + | Address | [address] | | | [place] [address] | + + + | Home Phone | | + + + | Preferred Language | Unknown | + + + | Marital Status | | + + + | Holiness Affiliation | Unknown | + + + | Race | Unknown | + + + | Ethnic Group | Unknown | + + + Author + + + | Author | [facility] | | | and [place] | + + + | Organization | [facility] | | | and [place] | + + + | Address | Unknown | + + + | Phone | Unavailable | + + + Support + + + + + | Name | Relationship | Address | Phone | + + + + + | Lyubov Smalls | ECON | [place], [place] | | | | | [address] | | + + + + + | Lydia Palm | ECON | [place], [place] | | | | | [address] | | + + + + + | melinda METZ" | ECON | [place], [place] | | | [place] | | [address] | | + + + + + | Jose C Oconnor | ECON | [place] | | | | | [place] | | | | | [address] | | + + + + + Care Team Providers + +------+ + | Care High School Assistant Football Coach Name | Role | Phone | + [...] | | | | | ([facility]) Wound | | | | [...] + + | 07/08/ | Preadmit | [facility] | PoiQasim MD | | | 2019 | Visit | CENTER [facility] | [address] | | | | | CLINIC [address] | [place], [place] | | | | | [place], [place] | [id number] | | | | | [address] | | | | | | [phone] | | | +--------+ + + + [...] + + + | Blood Pressure | 107/55 | 07/08/2019 9:27 AM | | | | | PDT | | + + + + + | Pulse | 65 | 07/08/2019 9:27 AM | | | | | PDT | | + + + + + | Temperature | - | - | | + + + + + | Respiratory Rate | 12 | 07/08/2019 9:27 AM | | | | | PDT | | + + + + + | Oxygen Saturation | 98% | 07/08/2019 9:27 AM | | | | | PDT | | + + + + + | Inhaled Oxygen | - | - | | | Concentration | | | | + + + + + | Weight | 84.2 kg (185 lb 10 | 07/08/2019 9:27 AM | | | | oz) | PDT | | + + + + + | Height | 157.5 cm (5' 2") | 07/08/2019 9:27 AM | | | | | PDT | | + + + + + | Body Mass Index | 33.95 | 07/08/2019 9:27 AM | | | | | PDT | | + + + + + documented in this encounter Plan of Treatment Not on filedocumented as of this encounter Procedures + +--------+ + + + | Procedure Name | Priori | Date/Time | Associated Diagnosis | Comments | | | ty | | | | + +--------+ + + + | , SERUM, | STAT | 07/08/2019 | | Results for this | | QUAL | | 9:59 AM | | procedure are in the | | | | PDT | | results section. | + +--------+ + + + | CBC WITH | STAT | 07/08/2019 | | Results for this | | DIFFERENTIAL | | 9:45 AM | | procedure are in the | | | | PDT | | results section. | + +--------+ + + + | BASIC METABOLIC | STAT | 07/08/2019 | | Results for this | | PANEL | | 9:45 AM | | procedure are in the | | | | PDT | | results section. | + +--------+ + + + | ECG 12 LEAD | Routin | 07/08/2019 | | Results for this | | | e | 9:42 AM | | procedure are in the | | | | PDT | | results section. | + +--------+ + + + documented in this encounter Results , Serum, Qual (07/08/2019 9:59 AM PDT) + + + + + + | Component | Value | Ref Range | Performed | Pathologist | | | | | At | Signature | + + + + + + | Preg, Serum | NEGATIVEComment: Testing | NEG | [facility] | | | | performed at [facility];[address] | | LABORATORY | | | | [facility];[place], [place] | | | | | | [address] | | | | + + + + + + + + | Specimen | + + | Blood | + + + + + + + | Performing | Address | City/State/Zipcode | Phone Number | | Organization | | | | + + + + + | [facility] | [address] | [place] [address] | [phone] | + + + + + Basic Metabolic Panel (07/08/2019 9:45 AM PDT) + + + + [...] | | | | performed at [facility];[address] | | | | | | [facility];[place], [place] | | | | | | [address] | | | | + + + + + + + + | Specimen | + + | Blood | + + + + + + + | Performing | Address | City/State/Zipcode | Phone Number | | Organization | | | | + + + + + | [facility] | [address] | [place] [address] | [phone] | + + + + + CBC with Differential (07/08/2019 9:45 AM PDT) + + + + + + | Component | Value | Ref Range | Performed | Pathologist | | | | | At | Signature | + + + + + + | WBC | 8.92 | 3.80 - 11.00 | [facility] | | | | | K/uL | LABORATORY | | + + + + + + | RBC | 4.62 | 3.70 - 5.10 | [facility] | | | | | M/uL | LABORATORY | | + + + + + + | Hemoglobin | 13.1 | 11.3 - 15.5 | [facility] | | | | | g/dL | LABORATORY | | + + + + + + | Hematocrit | 40.2 | 34.0 - 46.0 % | [facility] | | | | | | LABORATORY | | + + + + + + | MCV | 87.0 | 80.0 - 100.0 fl | [facility] | | | | | | LABORATORY | | + + + + + + | MCH | 28.5 | 27.0 - 34.0 pg | [facility] | | | | | | LABORATORY | | + + + + + + | MCHC | 32.7 | 32.0 - 35.5 | [facility] | | | | | g/dL | LABORATORY | | + + + + + + | RDW-SD | 49.9 | 37 - 53 fl | [facility] | | | | | | LABORATORY | | + + + + + + | Platelet | 222 | 150 - 400 K/uL | [facility] [...] + + + + | % | 74.38 | % | [facility] | | | Neutrophils | | | LABORATORY | | + + + + + + | % | 16.66 | % | [facility] | | | Lymphocytes | | | LABORATORY | | + + + + + + | Monocyte % | 5.40 | % | [facility] | | | | | | LABORATORY | | + + + + + + | Eosinophils | 2.68 | % | [facility] | | | % | | | LABORATORY | | + + + + + + | Basophils % | 0.88 | % | [facility] | | | | | | LABORATORY | | + + + + + + | Neutrophils | 6.64 | 1.90 - 7.40 | [facility] | | | , Absolute | | K/uL | LABORATORY | | + + + + + + | Absolute | 1.49 | 1.00 - 3.90 | [facility] | | | Lymphocytes | | K/uL | LABORATORY | | + + + + + + | Absolute | 0.48 | 0.00 - 0.80 | [facility] | [...] | | Absolute | performed at [facility];[address] | K/uL | LABORATORY | | | | [address];[place] | | | | | | [address] | | | | + + + + + + + + | Specimen | + + | Blood | + + + + + + + | Performing | Address | City/State/Zipcode | Phone Number | | Organization | | | | + + + + + | [facility] | [address] | [place] [address] | [phone] | + + + + + ECG 12 lead (07/08/2019 9:42 AM PDT) + + + + + + | Component | Value | Ref Range | Performed | Pathologist | | | | | At | Signature | + + + + + + | VENTRICULAR | 69 | BPM | [facility] | | | RATE EKG | | | | | + + + + + + | ATRIAL RATE | 69 | BPM | [facility] | | [...] + + + + | Q-T | 350 | ms | [facility] | | | INTERVAL | | | | | + + + + + + | Q-T | 375 | ms | [facility] | | | INTERVAL | | | | | | (CORRECTED) | | | | | + + + + + + | P WAVE AXIS | 18 | degrees | [facility] | | + + + + + + | QRS AXIS | 16 | degrees | [facility] | | + + + + + + | T AXIS | 100 | degrees | [facility] | | + + + + + + | INTERPRETAT | Normal sinus | | [facility] | | | ION TEXT | rhythmNonspecific T wave | | | | | | abnormalityProlonged | | | | | | Q-T intervalAbnormal | | | | | | ECGWhen compared with | | | | | | ECG of 02-APR-2019 | | | | | | 15:30,QRS axis Shifted | | | | | | rightNonspecific T wave | | | | | | abnormality now evident | | | | | | in Inferior | | | | | | leadsNonspecific T wave | | | | | | abnormality now evident | | | | | | in Lateral leads | | | | | | Confirmed by CHAPIS MONCADA, | | | | | | CHAGO ([id number]) on 07/10/2019 | | | | | | 12:27:40 PM | | | | + + [...]
--- OUTSIDE RECORDS SUMMARY | ~2020-04-05 | XMS | Encounter Summary ---
Demographics + + + | Address | [address] | | | [place] [address] | + + + | Home Phone [...] [place], [place] | | | | | [address] | | + + + + + | Lydia Palm | ECON | [place], [place] | | | | | [address] | | + + + + + | melinda METZ" | ECON | [place], [place] | | | [place] | | [address] | | + + + + + | Jose C Oconnor | ECON | [place] | | | | | [place] | | | | | [address] | | + + + + + Care Team Providers + +------+ + | Care Aircraft Painter Name | Role | Phone | + +------+ + | No, Physician | PCP | Unavailable | + +------+ + Reason for Visit + + + | Reason | Comments | + + + | Follow-up | | + + + | Wound Check | | + + + Encounter Details +--------+ + + + + | Date | Type | Department | Care Team | Description | +--------+ + + + + | 08/24/ | Clinical | [facility] | Nidhi Whitaker, | Surgical wound | | 2019 | Support | VASCULAR SURGERY | RN | dehiscence, | | | | [address] | | subsequent encounter | | | | [place] | | (Primary Dx) | | | | [address] | | | | | | [phone] | | | +--------+ + + + [...] encounter Progress Notes Nidhi Whitaker RN - 08/24/2019 1:00 PM PDTPatient presented to office with her mother and niece for left axilla wound recheck. Patient states her last dressing change out with [facility] was last . Patient report she was told by the wound care nurse that there is "another hole" at the incision site. On assessment, patient had develop anoth er hole to the top of existing wound. Hole is the size of a pea, underlying graft is visibl y seen in the wound, wound tunnels down at 4 pm to the other existing wound. Called and not ified Dr Pederson regarding findings, Dr Pederson unable to see patient due a emergent procedure at ca th lab. Per Dr Pederson, since patient's wound has not healed after several months of wound vac surgery she will need another wound washout next week with AVG removal and wound vac placeme nt. In the meantime she is to continue wound care 3 times a week at [facility] wound clinic. Patient is dissappointment regarding outcome but stated understanding. She will follow up with Dr Pederson on 09/02/2019 at [facility] [place]. documented in this encounter Plan of Treatment Not on filedocumented as of this encounter Visit Diagnoses + + | Diagnosis | + + | Surgical wound dehiscence, subsequent encounter - Primary | + + documented in this encounter
--- OUTSIDE RECORDS SUMMARY | ~2020-04-05 | XMS | Encounter Summary ---
Demographics + + + | Address | [address] | | | [place] [address] | + + + | Home Phone [...] [place], [place] | | | | | [address] | | + + + + + | Lydia Palm | ECON | [place], [place] | | | | | [address] | | + + + + + | melinda METZ" | ECON | [place], [place] | | | [place] | | [address] | | + + + + + | Jose C Oconnor | ECON | [place] [place] | | | | | [place] | | | | | [address] | | + + + + + Care Team Providers + +------+ + | Care Manager Spanish Name | Role | Phone | + [...] daily thru | [address] | [place] [address] | | | | | February 23, | [place], [place] | Phone: | | | | | Peritonitis | [address] | [phone] | | | | | Procedures | Phone: | Fax: | | | | | [place] | [phone] | [phone] | | | | | [place], | Fax: | | | | | | [address] [place] | [phone] | | | | | | IV [...] + + | 02/22/ | Hospital | [facility] | Unknown, | Peritonitis | | 2019 | Encounter | [facility] | MD Iris Kinney | associated with | | | | [address] | [phone] | peritoneal dialysis, | | | | [place] | | initial encounter | | | | [address] | | (HCC) (Primary Dx) | | | | [phone] | | | +--------+ + + + [...] m the original. Vitals: 02/22/19 1728 02/22/19 175 BP: 114/79 136/76 Pulse: 79 71 Resp: [...] BP: 114/79 136/76 Pulse: 79 71 Resp: Temp: 36.9 C (98.4 F) TempSrc: Oral [...] signed by: Brandin Gray RN 02/22/2019 18:04 cCoon, Brandin Cartwright RN - 02/22/2019 5:23 PM PDTThere we re no vitals filed for this visit. Ramona Oconnor received into room 441 independent ambulation accompanied by States here for merrem infusion. Reports no change in condition, plan of care since last MD visit . Alert, oriented x 4, cooperative. Electronically signed by: Brandin Gray RN 02/22/2019 17:23 documented in this en counter Plan of [...]
--- OUTSIDE RECORDS SUMMARY | ~2020-04-05 | XMS | Encounter Summary ---
Demographics + + + | Address | [address] | | | [place] [address] | + + + | Home Phone [...] [place], [place] | | | | | [address] | | + + + + + | Lydia Palm | ECON | [place], [place] | | | | | [address] | | + + + + + | melinda METZ" | ECON | [place], [place] | | | [place] | | [address] | | + + + + + | Jose C Oconnor | ECON | [place] [place] | | | | | [place] | | | | | [address] | | + + + + + Care Team Providers + +------+ + | Care Sql Data Analyst Name | Role | Phone | + +------+ + | Juan F Whitley DO | PCP | | + +------+ + Encounter Details +--------+ + + + + | Date | Type | Department | Care Team | Description | +--------+ + + + + | 06/05/ | Emergency | [facility] | Georgette Beavers, | Right flank pain; | | 2018 | | MEDICAL CENTER | DO [address] | ESRD on peritoneal | | | | EMERGENCY CENTER | [place] [address] | dialysis (HCC); | | | | [address] | [phone] | Non-compliance with | | | | [place], [place] | | treatment; Ovarian | | | | [address] | | mass, right | | | | [phone] | | | +--------+ + + + [...] Note by Silviano Lake RN at 06/05/18 2163 Author: Silviano Lake RN Service: Nephrology Author Type: Registered Nurse Filed: 06/05/18 3801 Date of Service: 06/05/18 0755 Status: Signed Drier Operator: Silviano Lake, RN (Registered Nurse) COLLECTED APPROXIMATELY [...] | | CLOUDY RBC'S | | | <36198 TOTAL NUCLEATED CELLS | | | 1484 NEUTROPHILS | | | 42 LYMPHOCYTES | | | 1 MONOCYTES/MACROPHAGES 56 | | | EOSINOPHILS 0 | | | Mesothelial Cells 1 OTHER | | | CELLS 0 CELLS COUNTED | | | 100 Testing performed at | | | [facility];[address] [place] [address];[place] [address] | | + + + + +---------+ [...] AT 1042: PREVIOUSLY REPORTED | | | <97435 TOTAL NUCLEATED CELLS REPORTED IN ERROR, | [...] | PLEASE DISREGARD RESULTS. Testing performed at [facility];[address] | | | [facility];[place] [address] CORRECTED ON 06/05 AT 1042: PREVIOUSLY | [...] EXTERNAL | | | | performed at [facility];888 | mmol/L | LAB | | | | [address];[place] | | | | | | [address] | | | | + + + [...] 4:27AM Referring Provider | | | Line: [phone] ID: [id number] | | + + + [...] Jun 05 2018 4:27AM Referring Provider Line: [phone] ID: [id number] | |Masses: None. | |Endometrium: [...] 05 2018 4:27AM Referring Provider Line: [phone] ID: [id number] | + + Lactic Acid (06/05/2018 2:34 AM PDT) + + + + + + | Component | Value | Ref Range | Performed | Pathologist | | | | | At | Signature | + + + + + + | Lactate | 1.3Comment: Testing | 0.4 - 2.0 | EXTERNAL | | | | performed at [facility];888 | mmol/L | LAB | | | | [address];[place], [place] | | | | | | [address] | | | | + + + [...] (500), | | | | | | copy editor Yesenia King | | | | | | 79) on 06/05/2018 | | | | | | 4:58:37 PM | | | | + + + + + + + + | Specimen | + + | | + + + + + | Narrative | Performed At | + + + | Historically converted procedure from [facility] | EXTERNAL LAB | + + [...] 1:44AM Referring Provider Line: | | | [phone] ID: [id number] | | + + + [...] 2018 1:44AM | | Referring Provider Line: [phone] ID: [id number] | |Peritoneal Cavity: No dilated [...] 05 2018 1:44AM Referring Provider Sandhya ne: [phone] ID: [id number] | + + XR Chest [...] Schumacher Conversion - 06/23/2019 11:55 AM SRINATH [id number] yearsXR | | CHEST 2 VIEW FRONTAL [...] | | | | | | at [facility];[address] [place] [address] | | | | | | [facility];[place] [address] | | | | + + + [...] at | | | | | | [facility];[address] [place] [address] | | | | | | [facility];[place] [address] | | | | + + + [...] | | | | | | ACUTE [place] Testing | | | | | | performed at [facility] | | | | | | [address] [facility];[place], [place] | | | | | | [address] | | | | + + + [...] EXTERNAL | | | | performed at [facility] | | LAB | | | | [address];[place], [place] | | | | | | [address] | | | | + + + [...]
--- OUTSIDE RECORDS SUMMARY | ~2020-04-05 | XMS | Encounter Summary ---
Demographics + + + | Address | [address] | | | [place] [address] | + + + | Home Phone [...] [place], [place] | | | | | [address] | | + + + + + | Lydia Palm | ECON | [place], [place] | | | | | [address] | | + + + + + | melinda METZ" | ECON | [place], [place] | | | [place] | | [address] | | + + + + + | Jose C Oconnor | ECON | [address] | | | | | [place] | | | | | [address] | | + + + + + Care Team Providers + +------+ + | Care Regulatory Affairs Coordinator Name | Role | Phone | + +------+ + | No, Physician | PCP | Unavailable | + +------+ + Encounter Details +--------+ + + + + | Date | Type | Department | Care Team | Description | +--------+ + + + + | 06/21/ | Orders Only | [facility] | Kylie Alves DNP | | | 2019 | | VASCULAR SURGERY | [address] | | | | | ULTRASOUND [address] | [facility] [place] [place] | | | | | [address] | [address] | | | | | [place] | | | | | | [address] | | | | | | [phone] | | | +--------+ + + + [...] Volume flow: 914 cc/min: Diameter: 7.6 mm. Placedo loop: | | | PSV: 52 cm/sec. [...] cm/sec. Volume flow: 914 cc/min: Diameter: 7.6 mm.Placedo loop: PSV: 52 cm/sec. | | Volume [...] flow: 914 cc/min: Diameter: 7.6 mm. | |Placedo loop: PSV: 52 cm/sec. Volume flow: 236 [...]
--- OUTSIDE RECORDS SUMMARY | ~2020-04-05 | XMS | Encounter Summary ---
Demographics + + + | Address | [address] | | | [place] [address] | + + + | Home Phone | | + + + | Preferred Language | Unknown | + + + | Marital Status | | + + + | Jainism Affiliation | Unknown | + + + | Race | Unknown | + + + | Ethnic Group | Unknown | + + + Author + + + | Author | [facility] | | | and [place] | + + + | Organization | [facility] | | | and [place] | + + + | Address | Unknown | + + + | Phone | Unavailable | + + + Support + + + + + | Name | Relationship | Address | Phone | + + + + + | Lyubov Smalls | ECON | [place], [place] | | | | | [address] | | + + + + + | Lydia Palm | ECON | [place], [place] | | | | | [address] | | + + + + + | melinda MTEZ" | ECON | [place], [place] | | | [place] | | [address] | | + + + + + | Jose C Oconnor | ECON | [address] [place] | | | | | [place] | | | | | [address] | | + + + + + Care Team Providers + +------+ + | Care Pin Maker Name | Role | Phone | + +------+ + | Unknown, Physician | PCP | | + +------+ + Encounter Details +--------+ + + + + | Date | Type | Department | Care Team | Description | +--------+ + + + + | 02/17/ | Telephone | [facility] | Frances Glass RN | | | 2019 | | MED CTR OP INFUSION | | | | | | [address] | | | | | | [place] | | | | | | [address] | | | | | | [phone] | | | +--------+ + + + [...]
--- OUTSIDE RECORDS SUMMARY | ~2020-04-05 | XMS | Encounter Summary ---
Demographics + + + | Address | [address] | | | [place] [address] | + + + | Home Phone [...] [place], [place] | | | | | [address] | | + + + + + | Lydia Palm | ECON | [place], [place] | | | | | [address] | | + + + + + | melinda METZ" | ECON | [place], [place] | | | reba | | [address] | | + + + + + | Jose C Oconnor | ECON | [place] | | | | | [place] | | | | | [address] | | + + + + + Care Team Providers + +------+ + | Care Tariff Counsel Name | Role | Phone | + +------+ + | Juan F Whitley DO | PCP | | + +------+ + Encounter Details +--------+ + + + + | Date | Type | Department | Care Team | Description | +--------+ + + + + | 03/04/ | Hospital | [facility] | [place], | Generalized | | 2018 - | Encounter | [facility] [address] | MD Jose [address] | abdominal pain; | | | | [address] | [address] | End-stage renal | | 03/09/ | | [place], [place] | [place] [address] | disease on | | 2018 | | [address] | [phone] | peritoneal dialysis | | | | [phone] | | ([facility]); | | | | | | [...] original. Discharge Summaries by ODALIS ColónR3 at 03/09/1863 Author: ODALIS [email or web address] Service: Hospitalist Author Type: Resident-Y2 Filed: 03/09/18 6161 Date of Service: 03/09/18654 Status: Attested Acute Care Registered Nurse: ODALIS [email or web address] (Resident-Y3) Cosigner: Kemal Maloney MD at 11/27 Attestation signed by Kemal Maloney MD at 03/10/181752 Patient seen and examined along with residents prior to discharge. She is 38 year old lady (not 2 year old as mentioned in the note of my resident) who is on peritoneal dialysis at [facility] presented with PD induced peritonitis and was treated with IV vancomycin and IV ceftazidi me. Patient responded well to antibiotics and is being discharged home in stable condition w ith 10 more days of vancomycin and ceftazidime per nephrology recommendations. Service: Hospitalist Discharge Summary Pt: Ramona Oconnor AGE/SEX: 38 y.o. female ROOM: [facility]/406-1 PCP: [facility] : 1980 Date of Admission: 03/04/2018 Date [...] was 9. She [facility] 10 more days of antibiotics [...] Mar 05 2018 3:51AM Referring Provider Line: [phone] ID: [id number] PLAN Patient is to be discharged home. She will be followed up tomorrow with her peritoneal dial ysis nurse to continue her outpatient antibiotic therapy. Disposition: Home Condition: Good Code Status: DNR/DNI No discharge procedures on file. Follow up: [facility] [address] [place] [id number] In 1 week hospital follow up Medication [...] Refills: 0 Commonly known as: NORVASC ergocalciferol 48482 units capsule Refills: 0 Commonly known as: [...] Author: Dario Fry Service: (none) Author Type: Masonry Instructor Filed: 03/09/181628 Date of Service: 03/09/181627 Status: Signed Acute Care Registered Nurse: Dario Fry (Masonry Instructor) Vitals: 03/09/18 1527 BP: Pulse: 80 Resp: [...] Author: LUCILLE Grimaldo Service: (none) Author Type: Brine Tank Tender Filed: 03/09/18 1635 Date of Service: 03/09/18 1212 Status: Addendum Acute Care Registered Nurse: LUCILLE Grimaldo (Brine Tank Tender) Related Notes: Original Note by LUCILLE Grimaldo (Brine Tank Tender) filed at 03/09/18 1529 Discharge planning: CM was advised by Dr. Maloney that pt's IV Abx orders will be written b y Dr. Monte ([phone]). CM paged Dr Monte for orders and discharge plan. CM needs to call Dr Lukas Lynn at [phone] when discharge plan is confirmed and when pt is ready for di scharge. [address] Lukas Lynn and he is researching and will call CM back. 1633 CM faxed H&P and Discharge Summary to [facility], Attn: Maryse, (Fa x: ). Linden Kincaid MD - 03/09/2018 7:25 AM PDTFormatting of this note might be different from th e original. Progress Notes by Linden Monte MD at 03/09/18 0791 Author: Linden Monte MD Service: Nephrology Author Type: Physician Filed: 03/11/18 9029 Date of Service: 03/09/18724 Status: Signed Acute Care Registered Nurse: Linden Monte MD (Physician) [facility] Service: NEPHROLOGY Progress Note Ramona Oconnor 38 y.o. [id number] 406/406-[address] [facility] Hospital Day: LOS: 4 days Patient with [...] Procedure: ESOPHAGOGASTRODUODENOSCOPY; Surgeon: Beena Peters MD; Location: [facility] END[facility]; Service: Gastroenterology; Laterality: N/A; PERITONEAL CATHETER INSERTION N/A 10/28/2015 Procedure: LAPAROSCOPIC - PERITONEAL DIALYSIS CATH INSERTION; Surgeon: Mundo Ramos MD; Lo cation: [facility] MAIN OR; Service: Vascular; Laterality: N/A; History [...] Mar 05 2018 3:51AM Referring Provider Line: [phone] ID: [id number] PROBLEM LIST Principal Problem: Abdominal [...] called and spoke with pd rn at [facility] Janna kindly agreed to see her i [...] DETAIL, VERBALIZ ES UNDERSTANDING LINDEN MONTE MD [facility] Seen earlier and charting completed later Dictation software, [employer], used which may contain error for similar [...] Date of Service: 03/08/18 1838 Status: Signed Acute Care Registered Nurse: Alyce Fonseca RN (Registered Nurse) Patient tolerating diet. Hydrocodone given for pain rated 5/10. onver patric Transaction, Provider Unknown - 03/08/2018 4:29 PM PDT Nurse Progress Note by Alyce Fonseca RN at 03/08/18 1629 Author: Alyce Fonseca RN Service: (none) Author Type: Registered Nurse Filed: 03/08/18 1630 Date of Service: 03/08/18 1629 Status: Signed Acute Care Registered Nurse: Alyce Fonseca RN (Registered Nurse) Patient tolerating [...] of Service: 03/08/18 0639 Status: Attested Addendum Acute Care Registered Nurse: ODALIS ColónR3 (Resident-Y3) Related Notes: Original Note [...] Ramona Oconnor AGE/SEX: 38 y.o. female ROOM: [facility]406-1 PCP: [facility] : 1980 PATIENT SUMMARY This is a [...] Note by Alyce Fonseca RN at 03/07/18 4095 Author: Alyce Fonseca RN Service: (none) Author Type: Registered Nurse Filed: 03/07/18 8628 Date of Service: 03/07/18 044 Status: Signed Acute Care Registered Nurse: Alyce Fonseca RN (Registered Nurse) Patient resting [...] Notes by Cesar Gatica MD at 03/07/18 0947 Author: Cesar Gatica MD Service: Hospitalist Author Type: Physician Filed: 03/07/18 9617 Date of Service: 03/07/1832 Status: Signed Acute Care Registered Nurse: Cesar Gatica MD (Physician) Related Notes: Original Note by Cesar Gatica MD (Physician) filed at 03/07/[address] [facility] Service: Hospitalist Progress Note Hospital Day: [...] 97.8 F (36.6 C) (Oral) | R enmnauel 18 | [...] hours. No results for input(s): PHART, PO2ART, KNN0GII, D1PAKGVL, BEART in the last 168 hours. No [...] Mar 05 2018 3:51AM Referring Provider Line: [phone] ID: [id number] PROBLEM LIST Principal Problem: Abdominal [...] Date of Service: 03/06/18 1505 Status: Signed Acute Care Registered Nurse: Ashley Calvert RN (Registered Nurse) Discharge Planning: Reviewed previous CM notes and attended am rounds. Pt lives in [facility] with sister and spouse. Home peritoneal dialysis pt. Per nsg, currently do not anticipate any discharge needs. No indication at this time that pt will discharge on IV abx. ASHLEY CALVERT 03/06/2018 3:07 PM onver patric Transaction, Provider Unknown - 03/06/2018 1:16 PM PDT Nurse Progress Note by SN Neris at 03/06/18 1316 Author: SN Neris Service: (none) Author Type: Cooker Casing Filed: 03/06/18 1319 Date of Service: 03/06/18 1316 Status: Signed Acute Care Registered Nurse: SN Neris (Cooker Casing) Pt was anxious and upset when I [...] Date of Service: 03/06/1846 Status: Attested Addendum Acute Care Registered Nurse: ODALIS ColónR3 (Resident-Y3) Related Notes: Original Note by Lukas A Leah, MD-R3 (Resident-Y3) filed at 03/06/18 1 242 Cosigner: Cesar Gatica MD at 03/06/182122 Attestation signed by Cesar Gatica MD at 03/06/182122 I have seen and examined the patient and agree with residents note. PROGRESS NOTE Pt: Ramona Oconnor AGE/SEX: 38 y.o. female ROOM: [address] [place] [address] PCP: [facility] : 1980 PATIENT SUMMARY This is a [...] QTC Calculation (Bezet) 507 ms Calculated P [place] 48 degrees Calculated R [place] 71 degrees Calculated T [place] 130 degrees Diagnosis Normal sinus rhythm T [...] Case Management by LUCILLE Grimaldo at 03/05/18 1604 Author: LUCILLE Grimaldo Service: (none) Author Type: Brine Tank Tender Filed: 03/05/18 1612 Date of Service: 03/05/18 1607 Status: Signed Acute Care Registered Nurse: LUCILLE Grimaldo (Brine Tank Tender) 03/05/18 1600 Discharge Planning Evaluation Admitting Diagnosis (Abdominal pain) Readmission No Living Arrangements Spouse/significant other;Family members Support Systems Spouse/significant other;Family members Type of Residence Private residence House type House 2 story Steps to enter 1 Independent with ADL's Yes Independent with Mobility Yes Home Care Services No Caregiver after Discharge No Mental Status Unable to answer questions Prior functional status (Independent) Power of Wash Operator No Resources Financial concerns No Transportation issues No Patient/Family concerns No Prescription Plan Yes Name of Pharmacy ([facility] or [facility] in [place]) Previous home health equipment No Anticipated Disposition Facility Type Home CM met with pt(sleeping) and pt's mother, Lyubov Smalls and discussed dischar ge planning. Pt is a 38 y.o., female admitted for abdominal pain. Pt resides at [address] [place] [address] with her sister, Lydia and pt's , Jose C. Pt was independent with ADL's and mobility prior to admission. Pt has not had previous outpt PT/OT services, home O2, home care services, and has not take n blood thinners prior to admission. Pt receives home dialysis daily from 11pm to 11am. Patient's PCP is: Pt goes to the [facility] and sees Dr. Jerry as well. Patient's insurance: [employer]/Medicare/[facility] Coverage concerns: No Medication coverage/concerns: No [...] Author: LUCILLE Grimaldo Service: (none) Author Type: Brine Tank Tender Filed: 03/05/181338 Date of Service: 03/05/181337 Status: Signed Acute Care Registered Nurse: LUCILLE Grimaldo (Brine Tank Tender) CM attempted to assess, but pt was not in the room. CM will revisit as time permits. alvor son, Lukas Raymundo MD - 03/05/2018 6:59 AM PDT Progress Notes by Lukas Lynn MD-R3 at 03/05/18658 Author: ODALIS ColónR3 Service: Hospitalist Author Type: Resident-Y2 Filed: 03/05/18 1356 Date of Service: 03/05/18658 Status: Attested Acute Care Registered Nurse: Lukas Lynn MD-R3 (Resident-Y3) Cosigner: Kemal Maloney [...] Ramona Oconnor AGE/SEX: 38 y.o. female ROOM: [address] [place] [address] PCP: [facility] : 1980 PATIENT SUMMARY This is a [...] 03/05/18502 Date of Service: 03/05/18502 Status: Signed Acute Care Registered Nurse: Shelli Bustos RPH (Pharmacist) Clinical Pharmacy Note: [...] 0115 Date of Service: 03/05/18111 Status: Signed Acute Care Registered Nurse: April Madsen RN (Registered Nurse) This geological sample tester called by to obtain peritoneal fluid sample [...] | | | Random | performed at [facility];[address] | | LAB | | | | [address];[place], [place] | | | | | | [address] | | | | + + + [...] | | | | | | at [facility], [address] | | | | | [address], | | | | | | [place] [address] | | | | + + + [...] [address], | | | | | | [place] [address] | | | | + + + [...] | APPEARANCE CLEAR RBC'S | | | <31726 TOTAL NUCLEATED | | | CELLS 9 NEUTROPHILS | | | 53 LYMPHOCYTES | | | 10 MONOCYTES/MACROPHAGES | | | 37 CELLS COUNTED 100 | | | Testing performed at [facility];[address] [facility];[place] [address] | | + + + + +---------+ [...] | | | Basophils | performed at [facility], [address] | LAB | | | | [address], | | | | | | [place] [address] | | | | + + + [...] EXTERNAL | | | | performed at [facility], [address] | | LAB | | | | [address], | | | | | | [place] [address] | | | | + + + [...] | | | | | | at [facility], [address] | | | | | | [address], | | | | | | [place] [address] | | | | + + + [...] + | Historically converted procedure from [facility] | EXTERNAL LAB | + + [...] | | | Basophils | performed at [facility];[address] | [address] | LAB | | | | [address];[place] | | | | | | [address] | | | | + + + [...] EXTERNAL | | | | performed at [facility], [address] | | LAB | | | | [address], | | | | | | [place] [address] | | | | + + + [...] | | | | | | at [facility], [address] | | | | | | [address], | | | | | | [place] [address] | | | | + + + [...] NEGATIVE Testing | | | performed at [facility];[address] [place] [address];[place] [address] | | + + + + +---------+ [...] | | | | | | [facility], [address] | | | | | | [address], [place], [place] | | | | | | [address] | | | | + + + [...] | | | | | [place] [address] | | | | + + + [...] | | | | | [place] [address] | | | | + + + [...] EXTERNAL | | | | performed at [facility], [address] | | LAB | | | | [address] [facility], | | | | | | [place] [address] | | | | + + + [...] | | | | | [place] [address] | | | | + + + [...] | | | 3:51AM Referring Provider Line: [phone] ID: [id number] | | + + + [...] 2018 | | 3:51AM Referring Provider Line: [phone] ID: [id number] | |Pancreas: Normal. | | [...] 05 2018 3:51AM Referring Provider Line: [phone] ID: [id number] | + + Culture, Body [...] | APPEARANCE HAZY RBC'S | | | <33090 TOTAL | | | NUCLEATED CELLS 1685 NEUTROPHILS | | | 56 LYMPHOCYTES | | | 31 MONOCYTES/MACROPHAGES | | | 13 CELLS COUNTED | | | 100 Testing performed at [facility];[address] [place] [address];[place], [place] | | | [address] | | + + + + +---------+ [...] | | | | | performed at [facility];[address] | | | | | | [address];[place] | | | | | | [address] | | | | + + + [...] EXTERNAL | | | | performed at [facility];[address] | mmol/L | LAB | | | | [address];[place], [place] | | | | | | [address] | | | | + + + [...] | | | | | | at [facility];[address] [place] [address] | | | | | | [facility];[place] [address] | | | | + + + [...]
--- OUTSIDE RECORDS SUMMARY | ~2020-04-05 | XMS | Clinical Summary ---
Demographics + + + | Address | [address] | | | [place] [address] | + + + | Home Phone | | + + + | Preferred Language | Unknown | + + + | Marital Status | | + + + | Orthodoxy Affiliation | Unknown | + + + | Race | Unknown | + + + | Ethnic Group | Unknown | + + + Author + + + | Author | [facility] | | | and [place] | + + + | Organization | [facility] | | | and [place] | + + + | Address | Unknown | + + + | Phone | Unavailable | + + + Support + + + + + | Name | Relationship | Address | Phone | + + + + + | Lyubov Smalls | ECON | [place], [place] | | | | | [address] | | + + + + + | Lydia Palm | ECON | [place], [place] | | | | | [address] | | + + + + + | melinda METZ" | ECON | [place], [place] | | | [place]ba | | [address] | | + + + + + | Jose C Oconnor | ECON | [place] | | | | | [place] | | | | | [address] | | + + + + + Care Team Providers + +------+ + | Care Linoleum Layer Helper Name | Role | Phone | + +------+ + | Unknown, Physician | PCP | | + +------+ + Allergies + + [...] | | + + + +---------+------+------+-------+ | ondansetron | Take 4 mg by mouth | | 0 | 10/1 | | Activ | | (ZOFRAN) 4 mg tablet | every 6 hours as | | | 4/20 | | e | | | needed. | | | 19 | | | + + + +---------+------+------+-------+ | senna (SENOKOT) | Take 1 tablet by | 14 | 0 | 10/3 | | Activ | | 8.6 mg tablet | mouth Twice daily | tablet | | 0/20 | | e | | | as needed for | | | 19 | | | | | Constipation. | | | | | | + + + +---------+------+------+-------+ | sevelamer | Take 2 tablets by | 270 | 0 | 10/3 | | Activ | | carbonate (RENVELA) | mouth 2 times daily | tablet | | 0/20 | | e | | 800 mg tablet | (with breakfast & | | | 19 | | | | | lunch). | | | | | | + + + +---------+------+------+-------+ | sevelamer | Take 3 tablets by | 270 | 0 | 10/3 | | Activ | | carbonate (RENVELA) | mouth Daily (with | tablet | | 0/20 | | e | | 800 mg tablet | dinner). | | | 19 | | | + + + +---------+------+------+-------+ | | Take 1 tablet by | 40 | 0 | 02/0 | | Activ | | HYDROcodone-acetamin | mouth every 4 hours | tablet | | 6/20 | | e | | ophen (NORCO) 5-325 | as needed for Pain. | | | 20 | | | | mg per tablet | | | | | | | + + + +---------+------+------+-------+ | | Take 1 tablet by | 30 | 0 | 03/0 | | Activ | | HYDROcodone-acetamin | mouth every 4 hours | tablet | | 3/20 | | e | | ophen (NORCO) 5-325 | as needed for Pain. | | | 20 | | | | mg per tablet | | | | | | | + + + +---------+------+------+-------+ +---+ + | | Additional | | | InformationPatient | | | not taking. Reported | | | on 01/25/2020 2:12 | | | PM | +---+ + Active Problems + + + | Problem | Noted Date | + + + | Infected prosthetic vascular graft, initial encounter | 09/03/2019 | + + + + + | Overview: Added automatically from request for surgery | | [id number] | + + + + + | Wound, surgical, nonhealing, initial encounter | 08/26/2019 | + + + | AV graft malfunction, initial encounter | 08/26/2019 | + + + | S/P arteriovenous (AV) graft repair | 08/26/2019 | + + + | Leukocytosis | 08/26/2019 | + + + | Shock | 08/26/2019 | + + + | Bleeding from dialysis shunt | 08/26/2019 | + + + | Obesity (BMI 30-39.9) | 08/26/2019 | + + + | Infection of arteriovenous dialysis fistula, subsequent encounter | 08/25/2019 | + + + + + | Overview: Added automatically from request for surgery | | [id number] | + + + + + | ESRD on hemodialysis | 08/25/2019 | + + + + + | Overview: Added automatically from request for surgery | | [id number] | + + + + + | ESRD on dialysis | 07/06/2019 | + + + + + | Overview: Added automatically from request for surgery | | [id number] | + + + + + | Wound infection after surgery | 07/06/2019 | + + + + + | Overview: Added automatically from request for surgery | | [id number] | + + + + + | [...] | +--------+ + + + + | 01/31/ | Office | Vascular Surgery | Kylie Alves DNP | ESRD (end stage | | 2019 | Visit | | | renal disease) on | | | | | | dialysis (HCC) | | | | | | (Primary Dx); | | | | | | Hemodialysis access, | | | | | | AV graft (HCC) | +--------+ + + + + | 01/24/ | Office | Vascular Surgery | Kylie Alves DNP | ESRD (end stage | | 2019 | Visit | | | renal disease) on | | | | | | dialysis (HCC) | | | | | | (Primary Dx); | | | | | | Hemodialysis access, | | | | | | AV graft (HCC) | +--------+ + + + + | 01/12/ | Telephone | Vascular Surgery | Samira Dixon, | Error | | 2019 | | | RN | | +--------+ + + + + | 01/12/ | Telephone | Vascular Surgery | Samira Dixon, | Follow-up | | 2019 | | | RN | | +--------+ + + + + | 01/10/ | Surgery | | Mundo Ramos MD | AV GRAFT CREATION | | 2019 | | | | | +--------+ + + + + | 01/10/ | Anesthesia | | Nat Smalls MD | | | 2019 | Event | | | | +--------+ + + + + | 01/10/ | Hospital | Internal Medicine | Mundo Ramos MD | | | 2019 | Encounter | | | | +--------+ + + + + from Last 3 Months Immunizations + + + + | Name | Administration Dates | Next Due | + + + + | HEP B, 3 DOSE | 12/12/2015, 11/16/2015 | | | (ADULT) | | | + + + + | INFLUENZA PF | 09/06/2016 | | | QUAD(PED/ADOL/ADULT) | | | | ,PSKT or VIAL | | | + + + + | INFLUENZA QUADR | 08/23/2014 | | | W/PRES | | | | (PED/ADOL/ADULT) | | | | MULTIDOSE | | | + + + + | INFLUENZA TRIV | 10/23/2015, 08/04/2013 | | | W/PRES(PED/ADOL/ADUL | | | | T),MULTIDOSE | | | + + + + | INFLUENZA, | 09/23/2011, 12/21/2010 | | | UNSPECIFIED | | | | FORMULATION | | | + + + + | PNEUMOCOCCAL PCV7 | 12/21/2010 | | | (PED) | | | + + + + [...] +--------+ + + Social History + +-------+ +--------+ [...] + + + | Blood Pressure | 107/69 | 02/01/2020 11:34 AM | | | | | PDT | | + + + + + | Pulse | 74 | 02/01/2020 11:34 AM | | | | | PDT [...] + | Oxygen Saturation | 96% | 02/01/2020 11:34 AM | | | | | PDT [...] | | + + + + + Plan of Treatment + + + + + | Health Maintenance | Due Date | Last Done | Comments | + + + + + | Vaccine: | | | | | Dtap/Tdap/Td (1 - | 9 | | | | Tdap) | | | | + + + + + | Adult Annual | | | | | Wellness Visit | 5 | | | + + + + + | Vaccine: | | 11/07/2015 | | | Pneumococcal 19-64 | 6 | | | | (2 of 3 - PCV13) | | | | + + + + + | Vaccine: Influenza | | 09/06/2016, 10/23/2015, | | | (Season Ended) | 0 | 08/23/2014, Additional history | | | [...] | | 11/09/ | [id number] | | [id number] - Sn/AImplanted: | | Arm | ARTG | | 2020 | /N/A | | Qty: 1 on 05/06/2019 by Dacia, | | | | | | /[id number] | | Qasim Porras MD | | | | | | [id number] | + +------+--------+ +--------+--------+--------+ | Artegraft Collagen Vascular | | Right: | ARTEGRAFT - | [id number] | 03/09/ | [id number] | | Graft (Bovine Carotid Artery | | Arm | ARTG | | 2021 | /NA | | Graft)Implanted: Qty: 1 on | | | | | | / | | 01/11/2020 by Mundo Ramos MD | | | | | | [id number] | | at [facility] | | | | | | | | [facility] | | | | | | | + +------+--------+ +--------+--------+--------+ Procedures + +--------+ [...] | +---+--------+ + +------+ +---+ + | BASIC METABOLIC | STAT | 01/11/2020 | | Results for this | | PANEL | | 9:31 AM | | procedure are in the | | | | PST | | results section. | + +------+ +---+ + | , SERUM, | STAT | 01/11/2020 | | Results for this | | QUAL | | 9:31 AM | | procedure are in the | | | | PST | | results section. | + +------+ +---+ + from Last 3 Months Results Anesthesia Airway Note (01/11/2020 10:33 AM [...] medication documentation. | | + + + , Serum, Qual (01/11/2020 9:31 AM PST) + + + + + + | Component | Value | Ref Range | Performed | Pathologist | | | | | At | Signature | + + + + + + | Preg, Serum | NEGATIVEComment: Testing | NEG | [facility] | | | | performed at [facility];[address] | | LABORATORY | | | | [address];[place], [place] | | | | | | [address] | | | | + + + + + + + + | Specimen | + + | Blood | + + + + + + + | Performing | Address | City/State/Zipcode | Phone Number | | Organization | | | | + + + + + | [facility] | [address] | [place] [address] | [phone] | + + + + + Basic [...] | | | | | performed at [facility];[address] | | | | | | [facility];[place], [place] | | | | | | [address] | | | | + + + + + + + + | Specimen | + + | Blood | + + + + + + + | Performing | Address | City/State/Zipcode | Phone Number | | Organization | | | | + + + + + | [facility] | [address] | [place] [address] | [phone] | + + + + + from [...] +--------+ +---------+--------+ | MEDICARE | MEDICA | [id number] | Effect | [phone] | | Medica | | | RE | | elizabeth | 5 | | re | | | PART A | | for | | | | | | | | all | | | | | | | | dates | | | | + +--------+ +--------+ +---------+--------+ | BCBS | BCBS | [id number] | 11/10/19 | | | PPO | | | FEDERA | | 16-Pre | | | | | | L FEP | | sent | | | | + +--------+ +--------+ +---------+--------+ | MEDICARE | MEDICA | [id number] | | [phone] | | Medica | | | RE | | 015-Pr | 5 | | re | | | PART A | | esent | | | | + +--------+ +--------+ +---------+--------+ | [facility] | IHS | [id number] | 02/09/20 | | | Indemn | | SERVICE | YELLOW | | 19-Pre | | | ity | | | HAWK | | sent | | | | [...] [address] | | Lien | [place] | | 1980 | [phone] | [place] | | | [place] | | | 9 (Home) | [phone] | + +--------+ +--------+ + + | ThomasRamona dugan | Person | Self | [birth year] | [address] | | Lien | [place] | | 1980 | [phone] | [place] | | | [place] | | | [place] (Home) | [address] | + +--------+ +--------+ + + Advance Directives + + + + + | Type | Date Recorded | Patient | Explanation | | | | Shade Hanger | | + + + + + | Power of | | | | | Air Quality Instrument Specialist | | | | + + + + + | Advance | 11/29/2019 11:35 | | | | Directive | AM | | | + + + + + + + + + + | Code Status | Date | Date | Comments | | | Activated | Inactivated | | + + + + + | Full Code | 01/11/2020 | 01/11/2020 | | | | 1:07 PM | 4:13 PM | | + + + + + + + + +---+ | | | | | + + + +---+ | Full Code | 12/16/2019 | 12/16/2019 | | | | 3:44 PM | 7:07 PM | | + + + +---+ + + + +---+ | | | | | + + + +---+ | Full Code | 12/16/2019 | 12/16/2019 | | | | 10:53 AM | 3:44 PM | | + + + +---+ + + + +---+ | | | | | + + + +---+ | Full Code | 09/03/2019 | 09/08/2019 | | | | 7:57 PM | 7:28 PM | | + + + +---+ + + + +---+ | | | | | + + + +---+ | Full Code | 09/03/2019 | 09/03/2019 | | | | 7:57 PM | 7:57 PM | | + + + +---+
--- OUTSIDE RECORDS SUMMARY | ~2020-04-05 | XMS | Encounter Summary ---
Demographics + + + | Address | [address] | | | [place] [address] | + + + | Home Phone | | + + + | Preferred Language | Unknown | + + + | Marital Status | | + + + | Druze Affiliation | Unknown | + + + [...] [place], [place] | | | | | [address] | | + + + + + | Lydia Palm | ECON | [place], [place] | | | | | [address] | | + + + + + | melinda METZ" | ECON | [place], [place] | | | [place] | | [address] | | + + + + + | Jose C Oconnor | ECON | [place] | | | | | [place] | | | | | [address] | | + + + + + Care Team Providers + +------+ + | Care Manager Environmental Name | Role | Phone | + +------+ + | Juan F Whitley DO | PCP | | + +------+ + Encounter Details +--------+ + + + + | Date | Type | Department | Care Team | Description | +--------+ + + + + | 06/04/ | Hospital | [facility] | José Miguel Olvera MD | Abdominal pain, | | 2017 - | Encounter | [facility] | [address] | unspecified | | | | CARE FLOOR [address] | [place] [address] | location; Chest | | 06/06/ | | [address] | [phone] | pain, unspecified | | 2017 | | [place], [place] | | type; SBP | | | | [address] | | (spontaneous | | | | [phone] | | bacterial | | | | | | peritonitis) ([facility]); | | | | | | Diffuse [...] might be different from th e original. Discharge Summaries by Jaxon Ko MD at 06/05/17 6232 Author: Jaxon Ko MD Service: Hospitalist Author Type: Physician Filed: 06/07/17 1208 Date of Service: 06/05/171739 Status: Signed Concrete Craftsman: Jaxon Ko MD (Physician) [facility] Service: Hospitalist Discharge Summary Date of Admission: 06/04/2017 Date of Discharge: 06/06/2017 Discharge Physician: Jaxon Ko MD Treatment Team: Consulting Physician: Santos Chi MD Consulting Physician: Linden Monte MD Admitting Provider: José Miguel Olvera MD Discharge Diagnoses: Principal Problem: Abdominal pain [...] is a PD catheter patient and dr.akoum haskins to complete kellex for 7 days and [...] INSERTION; Surgeon: Mundo Ramos MD; Lo cation: [facility]; Service: Vascular; Laterality: N/A; No Known Allergies Prescriptions Prior to Admission Medication Sig Dispense Refill Last Dose ALPRAZolam (XANAX) 0.5 MG tablet Take 0.5 mg by mouth nightly as needed for Sleep. @0930 at 1000 amLODIPine (NORVASC) 2.5 MG tablet Take 2.5 mg by mouth daily. 06/03/2017@1400 ergocalciferol (DRISDOL) 88707 UNITS capsule Take 50,000 Units by mouth [...] EGFR 3 (L) 06/06/2017 Culture, Body Fluid [[id number]] Collected: 06/04/17 1506 Order Status: Completed Lab Status: Preliminary result Updated: 06/07/17 1004 Specimen: Body Fluid from Peritoneal Fluid Specimen Description PERITONEAL FLUID GRAM STAIN NO CELLS OR ORGANISMS SEEN CULTURE NO GROWTH 3 DAYS Cell Count, Body Fluid [[id number]] Collected: 06/04/17 1506 Order Status: Completed Lab Status: Final result Updated: 06/04/17 1621 Specimen: Body Fluid from Ascites Fluid FLUID TYPE PERITONEAL FLUID COLOR COLORLESS APPEARANCE CLEAR RBC'S <10,000 /mm3 TOTAL NUCLEATED CELLS 21 /mm3 NEUTROPHILS 19 % LYMPHOCYTES 29 % MONOCYTES/MACROPHAGES 52 % CELLS COUNTED 100 Comment: Testing performed at [facility];[address] [facility];[place] [address] Disposition: Home Condition: Stable Code Status: Full [...] Call MD for: Extreme Fatigue Follow up: [facility] [address] [place] [address] Schedule an appointment as soon as possible for a visit in 1 week Santos Chi MD [facility] Yahir Quinteros [address] [address] Schedule an appointment as soon as possible [...] Refills: 0 Commonly known as: NORVASC ergocalciferol 52255 units capsule Refills: 0 Commonly known as: [...] 06/06/171333 Date of Service: 06/06/171333 Status: Signed Concrete Craftsman: Alyce Gold RN (Registered Nurse) Pt discharged home with spouse. Given RX and instructions. Pt has no questions at this time . Linden Kincaid MD - 06/06/2017 9:25 AM PDTFormatting of this note might be different from th e original. Progress Notes by Linden Monte MD at 06/06/17924 Author: Linden Monte MD Service: Nephrology Author Type: Physician Filed: 06/13/17 1914 Date of Service: 06/06/17924 Status: Signed Concrete Craftsman: Linden Monte MD (Physician) [facility] Service: NEPHROLOGY PD/ Progress Note Ramona Hutson Elvin 37 y.o. [id number] female [facility] Hospital Day: LOS: 2 days Patient with [...] INSERTION; Surgeon: Mundo Ramos MD; Lo cation: [facility]; Service: Vascular; Laterality: N/A; [...] Table: I/O last 3 completed shifts: In: 28704 [P.O.:1700; I.V.:2488; Other:23007] Out: 73884 [Other:75986] Weight change: 2.994 kg (6 lb 9.6 [...] VERBALIZ ES UNDERSTANDING LINDEN MONTE MD 06/06/2017 [facility] Seen earlier and charting completed later Dictation software, MyRealTrip, used which may contain error for similar sounding words even af ter review. Personal communication requested for any clarification. Portions of my notes may have been carried over for continuity of care. onversion Transa ction, Provider Unknown - 06/06/2017 9:16 AM PDT Case Management by Ryley Barker RN at 06/06/1713 Author: Ryley Barker RN Service: (none) Author Type: Registered Nurse Filed: 06/06/17916 Date of Service: 06/06/1716 Status: Signed Concrete Craftsman: Ryley Barker RN (Registered Nurse) Pt will discharge home with spouse and no needs from CM onver patric Transaction, Provider Unknown - 06/06/2017 6:00 AM PDT Nurse Progress Note by Carlyle Merchant RN at 06/06/17 06 Author: Carlyle Merchant RN Service: (none) Author Type: Registered Nurse Filed: 06/06/17 0757 Date of Service: 06/06/17599 Status: Signed Concrete Craftsman: Carlyle Merchant RN (Registered Nurse) Pt continues [...] Progress Note by Avinash Johnson RN at 06/05/171714 Author: Avinash Johnson RN Service: (none) Author Type: Registered Nurse Filed: 06/05/171804 Date of Service: 06/05/171714 Status: Signed Concrete Craftsman: Avinash Johnson RN (Registered Nurse) Pt A&O, [...] to go home. Dr. Ko not ified. Emulsification Operator aslo aware of pt not leaving so will be coming to start PD. Will continue to monitor. Avinash Johnson RN onver patric Transaction, Provider Unknown - 06/05/2017 1:04 PM PDT Nurse Progress Note by Silviano Lake RN at 06/05/17 1304 Author: Silviano Lake RN Service: Nephrology Author Type: Registered Nurse Filed: 06/05/17 1306 Date of Service: 06/05/17 1304 Status: Signed Concrete Craftsman: Silviano Lake RN (Registered Nurse) Changed dressing on peritoneal catheter site as ordered by dr Chi. Pt tolerated well, no complications. Small abscess below dressing site covered with dressing as well, oozing small amount of bloody tinged puss. onver patric Transaction, Provider Unknown - 06/05/2017 11:41 AM PDT Case Management by Ryley Barker RN at 06/05/17 1141 Author: Ryley Bakrer RN Service: (none) Author Type: Registered Nurse Filed: 06/05/17 1147 Date of Service: 06/05/17 1141 Status: Signed Concrete Craftsman: Ryley Barker RN (Registered Nurse) 06/05/17 1100 [...] any new needs or concerns Patient's PCP is:[facility] Patient's insurance:medicare/[employer] Coverage concerns: no concerns Medication coverage/concerns: no concerns Community resources utilized / needed: none at this time Assistance in transportation: to transport Identification of any specific education / training: TBD Barriers to Discharge / Alternative housing needed: none Anticipated DCP: home RYLEY LECHUGA onver patric Transaction, Provider Unknown - 06/05/2017 9:59 AM PDT Pharmacy Note by Naheed Lala RPH at 06/05/1759 Author: Naheed Lala RPH Service: Pharmacy Author Type: Pharmacist Filed: 06/05/1759 Date of Service: 06/05/17958 Status: Signed Concrete Craftsman: Naheed Lala RPH (Pharmacist) Peritoneal dialysis patient. [...] Progress Notes by Jaxon Ko MD at 06/05/1743 Author: Jaxon Ko MD Service: Hospitalist Author Type: Physician Filed: 06/05/17 1503 Date of Service: 06/05/17842 Status: Signed Concrete Craftsman: Jaxon Ko MD (Physician) [facility] Service: Hospitalist Progress Note Hospital Day: [...] PD fluid yet,continue abx as per nephrology recc Chest pain this has resolved Hypokalemia being repleted as per nephrology recc End-stage renal disease on peritoneal dialysis as per Dr. Chi. DVT prophylaxis HSC GI px PPI Disposition: Admitted Code Status: Full Code Jaxon Ko MD 06/05/2017 onversion Transaction, Provider Unknown - 06/05/2017 6:34 AM PDTFormatting of this note might be different from e original. Nurse Progress Note by Drea Mckeon RN at 06/05/17 0634 Author: Drea Mckeon RN Service: (none) Author Type: Registered Nurse Filed: 06/05/1737 Date of Service: 06/05/17633 Status: Signed Concrete Craftsman: Drea Mckeon RN (Registered Nurse) Pt had one episode of emesis, and C/O pain through night. Medicated for pain with overall g ood relief. Pt's dialysis ran through shift. No acute events to note at this time. Family at bedside. Will pass report to oncoming RN. Drea Mckeon RN onver patric Transaction, Provider Unknown - 06/04/2017 6:52 PM PDT Nurse Progress Note by Aviansh Johnson RN at 06/04/171851 Author: Avinash Johnson RN Service: (none) Author Type: Registered Nurse Filed: 06/04/171854 Date of Service: 06/04/171851 Status: Signed Concrete Craftsman: Avinash Johnson RN (Registered Nurse) Pt admitted from ED around 1700, pt dined abd pain ad the time of arrival. Later pt did com plained of abd pain 7/10 and nausea. Medicated per JAN. Pt pain 3/10 now. Pt resting in bed. Dialysis nurse called and will start PD later this evening. Will continue to monitor. Nichelle Johnson RN onver patric Transaction, Provider Unknown - 06/04/2017 6:04 PM PDT Pharmacy Note by Sheyla South RPH at 06/04/171803 Author: Sheyla South RPH Service: Pharmacy Author Type: Pharmacist Filed: 06/04/171803 Date of Service: 06/04/171803 Status: Signed Concrete Craftsman: Sheyla South RPH (Pharmacist) Renal Dosing Monitoring: Ramona [place] 37 y.o. female Pharmacy dosing for renal function per Dr. Olvera Estimated Creatinine Clearance: 4.8 mL/min (by C-G formula based on SCr of 16 mg/dL). -peritoneal dialysis patient Pharmacy will continue monitoring patient for appropriate dosing per renal function. 06/04/2017 6:03 PM Pharmacist: SHEYLA SOUTH docume nted in this encounter Plan of [...] in this encounter Results External Lab: [facility] (06/06/2017 5:07 AM PDT) + + + [...] | performed at [facility], [address] | [address] | LAB | | | | [address], | | | | | | [place] [address] | | | | + + + [...] | performed at [facility], [address] | | LAB | | | | [address], | | | | | | [place] [address] | | | | + + + [...] | | at [facility], [address] | | | | | | [facility], | | | | | | [place] [address] | | | | + + + [...] | | | | performed at [facility];[address] | mmol/L | LAB | | | | [address];[place], [place] | | | | | | [address] | | | | + + + [...] | performed at [facility], [address] | K/u[address] | LAB | | | | [address], | | | | | | [place] [address] | | | | + + + [...] | | | | | [place] [address] | | | | + + + [...] | | | | | [place] [address] | | | | + + + [...] | | | | performed at [facility];[address] | mmol/L | LAB | | | | [address];[place], [place] | | | | | | [address] | | | | + + + [...] | | at [facility], [address] | | | | | | [address], | | | | | | [place] [address] | | | | + + + [...] | APPEARANCE CLEAR RBC'S | | | <050[address] TOTAL NUCLEATED | | | CELLS 21 NEUTROPHILS | | | 19 LYMPHOCYTES | | | 29 MONOCYTES/MACROPHAGES | | | 52 CELLS COUNTED 100 | | | Testing performed at [facility];[address] [facility];[place] [address] | | + + + + +---------+ [...] Rad Conversion - 06/24/2019 3:39 AM PDT RMAONA Hutson ELVIN1978XR ABDOMEN | | ACUTE SERIES06/04/2017 1:54 PM [...] | | | | performed at [facility] | | | | | | [address] [facility];[place], [place] | | | | | | [address] | | | | + + + [...] | | | | performed at [facility];[address] | mmol/L | LAB | | | | [address];[place] | | | | | | [address] | | | | + + + [...] | | | | | at [facility];[address] [place] [address] | | | | | | [facility];[place] [address] | | | | + + + [...] (500), | | | | | | clinical editor Alyce Barkley | | | | | | (18) on 06/04/2017 | | | | | | 1:55:24 PMAlso confirmed | | | | | | by MUSE READ ONLY, | | | | | | -COMPUTER (500), clinical editor | | | | | | NELDA HOANG (2) on | | | | | | 06/04/2017 1:56:29 PM | | | | + + + + + + + + | Specimen | + + | | + + + + + | Narrative | Performed At | + + + | [facility] | EXTERNAL LAB | + [...]
--- OUTSIDE RECORDS SUMMARY | ~2020-04-05 | XMS | Encounter Summary ---
Demographics + + + | Address | [address] | | | [place] [address] | + + + | Home Phone [...] [place], [place] | | | | | [address] | | + + + + + | Lydia Palm | ECON | [place], [place] | | | | | [address] | | + + + + + | melinda METZ" | ECON | [place], [place] | | | [place] | | [address] | | + + + + + | Jose C Oconnor | ECON | [address] [place] | | | | | [place] | | | | | [address] | | + + + + + Care Team Providers + +------+ + | Care Transportation Maintenance Worker Name | Role | Phone | + +------+ + | No, Physician | PCP | Unavailable | + +------+ + Encounter Details +--------+ + + + + | Date | Type | Department | Care Team | Description | +--------+ + + + + | 08/26/ | Hospital | [facility] | Qasim Pederson MD | Canceled (OTHER) | | 2019 | Encounter | [facility] | [address] | | | | | [address] | [place] | | | | | [place], [place] | [address] | | | | | [address] | | | | | | [phone] | | | +--------+ + + + [...] + + + | BB BAND | [id number] | | [facility] | | | | | | LABORATORY | | + + + + + + | UNIT # | [id number] | | [facility] | | | | [...] + + + | UNIT # | [id number] | | [facility] | | | | [...] + + + | UNIT # | [id number] | | [facility] | | | | [...] + + + | UNIT # | [id number] | | [facility] | | | | [...] + + + | UNIT # | [id number] | | [facility] | | | | [...] + + + | UNIT # | [id number] | | [facility] | | | | [...] + + + | UNIT # | [id number] | | [facility] | | | | [...] + + + | UNIT # | [id number] | | [facility] | | | | [...] | | | RESULT | performed at [facility];[address] | | LABORATORY | | | | [address];[place], [place] | | | | | | [address] | | | | + + + + + + + + | Specimen | + + | | + + + + + + + | Performing | Address | City/State/Zipcode | Phone Number | | Organization | | | | + + + + + | [facility] | [address] | [place] [address] | [phone] | + + + + + documented in this encounter Visit Diagnoses Not on filedocumented in this encounter
--- OUTSIDE RECORDS SUMMARY | ~2020-04-05 | XMS | Encounter Summary ---
Demographics + + + | Address | [address] | | | [place] [address] | + + + | Home Phone [...] [place], [place] | | | | | [address] | | + + + + + | Lydia Palm | ECON | [place], [place] | | | | | [address] | | + + + + + | melinda METZ" | ECON | [place], [place] | | | [place] | | [address] | | + + + + + | Jose C Oconnor | ECON | [address] | | | | | [place] | | | | | [address] | | + + + + + Care Team Providers + +------+ + | Care School Psychologist Assistant Name | Role | Phone | [...] | daily thru | [address] | [place] [address] | | | | | February 23, | [place], [place] | Phone: | | | | | Peritonitis | [address] | [phone] | | | | | Procedures | Phone: | Fax: | | | | | [place] | [phone] | [phone] | | | | | [place], | Fax: | | | | | | [address] [place] | [phone] | | | | | | IV [...] + + | 02/16/ | Hospital | [facility] | Unknown, | Peritonitis | | 2019 | Encounter | [facility] | MD Iris Kinney | associated with | | | | [address] | [phone] | peritoneal dialysis, | | | | [place] | (Fax) | initial encounter | | | | [address] | | (HCC) (Primary Dx) | | | | [phone] | | | +--------+ + + + [...]
--- OUTSIDE RECORDS SUMMARY | ~2020-04-05 | XMS | Encounter Summary ---
Demographics + + + | Address | [address] | | | [place] [address] | + + + | Home Phone [...] [place], [place] | | | | | [address] | | + + + + + | Lydia Palm | ECON | [place], [place] | | | | | [address] | | + + + + + | melinda METZ" | ECON | [place], [place] | | | [place] | | [address] | | + + + + + | Jose C Oconnor | ECON | [address] | | | | | [place] | | | | | [address] | | + + + + + Care Team Providers + +------+ + | Care Call Or Contact Centre Operator Name | Role | Phone | + +------+ + | Juan F Whitley DO | PCP | | + +------+ + Encounter Details +--------+ + + + + | Date | Type | Department | Care Team | Description | +--------+ + + + + | 04/22/ | Orders Only | [facility] | Man Jeronimo, | | | 2018 | | VASCULAR SURGERY | PA-C [address] | | | | | ULTRASOUND [address] | [address], | | | | | [place] | [place] [address] | | | | | [place] | [phone] | | | | | [address] | | | | | | [phone] | | | +--------+ + + + [...]
--- OUTSIDE RECORDS SUMMARY | ~2020-04-05 | XMS | Encounter Summary ---
Demographics + + + | Address | [address] | | | [place] [address] | + + + | Home Phone [...] [place], [place] | | | | | [address] | | + + + + + | Lydia Palm | ECON | [place], [place] | | | | | [address] | | + + + + + | melinda METZ" | ECON | [place], [place] | | | [place] | | [address] | | + + + + + | Jose C Oconnor | ECON | [address] | | | | | [place] | | | | | [address] | | + + + + + Care Team Providers + +------+ + | Care Step Down Specialist Name | Role | Phone | [...] + + | 08/30/ | Telephone | [facility] | Samira Dixon, | Follow-up | | 2018 | | VASCULAR SURGERY | RN | | | | | [address] | | | | | | [place] | | | | | | [address] | | | | | | [phone] | | | +--------+ + + + [...]
--- OUTSIDE RECORDS SUMMARY | ~2020-04-05 | XMS | Encounter Summary ---
Demographics + + + | Address | [address] | | | [place] [address] | + + + | Home Phone | | + + + | Preferred Language | Unknown | + + + | Marital Status | | + + + | Yazidi Affiliation | Unknown | + + + | Race | Unknown | + + + | Ethnic Group | Unknown | + + + Author + + + | Author | [facility] | | | and [place] | + + + | Organization | [facility] | | | and [place] | + + + | Address | Unknown | + + + | Phone | Unavailable | + + + Support + + + + + | Name | Relationship | Address | Phone | + + + + + | Lyubov Smalls | ECON | [place], [place] | | | | | [address] | | + + + + + | Lydia Palm | ECON | [place], [place] | | | | | [address] | | + + + + + | melinda METZ" | ECON | [place], [place] | | | [place] | | [address] | | + + + + + | Jose C Oconnor | ECON | [address] | | | | | [place] | | | | | [address] | | + + + + + Care Team Providers + +------+ + | Care Flying Teacher Name | Role | Phone | [...] + + | 01/12/ | Telephone | [facility] | Samira Dixon, | Follow-up | | 2019 | | VASCULAR SURGERY | RN | | | | | [address] | | | | | | [place] | | | | | | [address] | | | | | | [phone] | | | +--------+ + + + [...]
--- OUTSIDE RECORDS SUMMARY | ~2020-04-05 | XMS | Encounter Summary ---
Demographics + + + | Address | [address] | | | [place] [address] | + + + | Home Phone | | + + + | Preferred Language | Unknown | + + + | Marital Status | | + + + | Rastafarian Affiliation | Unknown | + + + | Race | Unknown | + + + | Ethnic Group | Unknown | + + + Author + + + | Author | [facility] | | | and [place] | + + + | Organization | [facility] | | | and [place] | + + + | Address | Unknown | + + + | Phone | Unavailable | + + + Support + + + + + | Name | Relationship | Address | Phone | + + + + + | Lyubov Smalls | ECON | [place], [place] | | | | | [address] | | + + + + + | Lydia Palm | ECON | [place], [place] | | | | | [address] | | + + + + + | melinda METZ" | ECON | [place], [place] | | | [place] | | [address] | | + + + + + | Jose C Oconnor | ECON | [address] | | | | | [place] | | | | | [address] | | + + + + + Care Team Providers + +------+ + | Care Sales Service Promoter Name | Role | Phone | + [...] | | | ([facility]) | | | | | [...] + + + + | 08/26/ | Anesthesia | [facility] | Dejuan Stubbs Jr., | | | 2019 | Event | [facility] | [place] [address] [facility] | | | | | OPER[address] RO[address] | [place] [address] | | | | | [facility] | [phone] | | | | | [place], [place] | | | | | | [address] | | | | | | [phone] | | | +--------+ + + + + Anesthesia Record + + + + + | Procedure Name | Responsible | Anesthesia Start | Anesthesia Stop Time | | | Anesthesiologist | Time | | + + + + + | REVISION LEFT | Dejuan Stubbs Jr., MD | 08/26/19 170 | 08/26/191902 | | AXILLARY AVG; WILL | | | | | NEED C-ARM, | | | | | OCCLUSION BALLOONS, | | | | | VIABAHN STENTS (N/A | | | | | ) | | | | + + + + + +----+---+ + + | Da | T | Event | Comment | | te | i | | | | | m | | | | | e | | | +----+---+ + + | 10 | 1 | An Start | Reassessment prior to anesthesia induction/procedure. | | /1 | 7 | | | | 7/ | 0 | | | | 20 | 5 | | | | 19 | | | | +----+---+ + + | | 1 | An Start | | | | 7 | Data | | | | 0 | | | | | 7 | | | +----+---+ + + | | 1 | An | RSI | | | 7 | Induction | | | | 1 | | | | | 0 | | | +----+---+ + + | | 1 | An | RSI. Easy intubation, no cx's. Dental status unchanged. | | | 7 | Intubation | | | | 1 | | | | | 2 | | | +----+---+ + + | | 1 | Quick Note | Incision/Surgery start | | | 7 | | | | | 1 | | | | | 9 | | | +----+---+ + + | | 1 | First | | | | 7 | Inc/Proc St | | | | 1 | | | | | 9 | | | +----+---+ + + | | 1 | Quick Note | Elevated A/W pressures and severe HypoTN occurred shortly after | | | 7 | | surgery began. No additional significant blood loss per surgeon. | | | 3 | | Multiple puffs with albuterol inhaler and additional NMB given | | | 2 | | with improved ventilation and lower A/w pressures. Hypotension | | | | | was refractory to phenylephrine, but responded to a small dose of | | | | | IV Epinephrine. (100 mcg) | +----+---+ + + | | 1 | AN No | TOF 4/4 with sustained tetanus. | | | 8 | Residual | | | | 2 | NMB | | | | 8 | | | +----+---+ + + | | 1 | Extubation/ | No cx's. Dental status unchanged. | | | 8 | Airway LDA | | | | 3 | Removal | | | | 2 | | | +----+---+ + + | | 1 | an stop | | | | 8 | data | | | | 4 | | | | | 6 | | | +----+---+ + + | | 1 | An Stop | Patient handed off to recovery nurse. | | | 0 | | | | | 3 | | | +----+---+ + + | | 2 | | | | | 2 | | | | | 0 | | | | | 4 | | | +----+---+ + + +------+ | Meds | +------+ + + + | Name | Total | + + + | ceFAZolin | 2 g | + + + | midazolam 2 mg/mL | 3 mg | + + + | fentaNYL | 250 mcg | + + + | rocuronium | 70 mg | + + + | phenylephrine | 400 mcg | + + + | neostigmine | 5 mg | + + + | glycopyrrolate | 0.6 mg | + + + | albuterol MDI | 8 puff | + + + | ketamine | 140 mg | + + + | calcium chloride injection | 400 mg | + + + | EPINEPHrine 0.1 mg/mL | 0.1 mg | + + + | labetalol | 10 mg | + + + | NS (Infusion) | 2,200 mL | + + + + + [...] + + + | Periph | 02/23/19; 1715; Right; Medial; | 02/23/191715 by | 09/08/19901 by | | eral | Forearm; umgv-aiy-upujiw catheter | Brandin Gray RN | Fartun Harris RN | | IV | system; 22 gauge; 1; rfa; | | | | | distraction, appears comfortable; | | | | | 09/08/19; 0902 | | | +--------+ + + + | Airway | Placement Date: 08/26/19; | 08/26/191711 by | 08/26/19 183 by | | | Placement Time: 1711 (created via | Dejuan Stubbs Jr., MD | Dejuan Stubbs Jr., MD | | | procedure documentation); Mask | | | | | Ventilation: EZ; Airway Grade: 1; | | | | | External Maneuvers: CP; | | | | | Successful Technique: Mac; | | | | | Laryngoscope Blade Size: 3; | | | | | Attempts: 1; Airway Type: | | | | | endotracheal; Size: 7; Airway | | | | | Tube Secured At: 22; Trauma: | | | | | none; Other Equipment: stylette; | | | | | Placement Check: exhaled CO2 | | | | | detection device, bilateral chest | | | | | rise, breath sounds equal | | | | | bilaterally; Removal Date: | | | | | 08/26/19; Removal Time: 1831; | | | | | Additional Comments: Easy | | | | | intubation, no cx's. Dental | | | | | status unchanged. Uncomplicated | | | | | modified RSI. | | | +--------+ + + + | Arteri | 08/26/19; 171; Alcohol; Right; | 08/26/19 1714 by | 08/27/19 0329 by | | al | radial artery; 20 gauge; | Dejuan Stubbs Jr., MD | Alyce Leung, | | Line | continuous blood pressure | | RN | | | monitoring, frequent blood gas | | | | | measurement; tolerated well; | | | | | other (see comments) (not drawing | | | | | blood/functioning); 08/27/19; | | | | | 0329 | | | +--------+ + + + | Periph | 08/26/19; 1924; Right; Anterior | 08/26/191924 by | 08/28/19 08 by | | eral | (palmar), Proximal; Antecubital; | Samira Clark, | Amrita Steele RN | | IV | zdls-ask-lqtjxc catheter system; | RN | | | | 20 gauge; distraction, tolerated | | | | | well; site symptomatic; 08/28/19; | | | | | 0801 | | | +--------+ + + + | Periph | 08/26/19; 1924; Right; Forearm; | 08/26/191924 by | 08/28/191655 by | | eral | 20 gauge; no longer indicated; | Amrita Steele RN | Amrita Steele RN | | IV | expected removal post discharge; | | | | | 08/28/19; 1655 | | | +--------+ + + + [...] | ANE AIRWAY NOTE | Routin | 08/26/2019 | | Results for this | | | e | 7:19 PM | | procedure are in the | | | | PDT | | results section. | + +--------+ + + + documented in this encounter Results Airway (08/26/2019 7:19 PM PDT) + + + | Narrative | Performed At | + + + | Dejuan Stubbs Jr., MD 08/26/2019 19:20 Anesthesia Airway | | | Placement 08/26/2019 17:12 Preprocedure check: patient | | | identified, suction, oxygen, airway equipment checked, airway | | | assessed and patient reassessment prior to induction Rapid Sequence | | | Induction: modified Mask ventilation: easy External maneuver: | | | cricoid pressure Successful technique: Mac Laryngoscope blade size: | | | 3 Airway grade: 1 (Full view of glottis) Other equipment: | | | stylette Attempts: 1 Airway type: endotracheal Size: 7 Cuffed: | | | cuffed Route, reference point: right side of mouth Tube depth: 22 cm | | | Tube secured with: adhesive tape Trauma: none Tube placement | | | verification: bilateral chest rise, carbon dioxide detection and | | | equal bilateral breath sounds Performing provider: Dejuan Stubbs Jr., MD | | | Comments: Easy intubation, no cx's. Dental status unchanged. | | | Uncomplicated modified RSI. Please see intraoperative | | | grid for any additional medication documentation. | | + + + + + | Procedure Note | + + | Dejuan Stubbs Jr., MD - 08/26/2019 7:19 PM PDT Anesthesia Airway [id number]/17/2019 | | 17:12Preprocedure check: patient identified, suction, oxygen, airway equipment checked, | | airway assessed and patient reassessment prior to inductionRapid Sequence Induction: | | modifiedMask ventilation: easyExternal maneuver: cricoid pressureSuccessful technique: | | MacLaryngoscope blade size: 3 Airway grade: 1 (Full view of glottis)Other equipment: | | styletteAttempts: 1Airway type: endotrachealSize: 7Cuffed: cuffedRoute, reference point: | | right side of mouthTube depth: 22 cmTube secured with: adhesive tapeTrauma: noneTube | | placement verification: bilateral chest rise, carbon dioxide detection and equal | | bilateral breath soundsPerforming provider: MICHELLE George Jr.omments: Easy intubation, | | no cx's. Dental status unchanged. Uncomplicated modified RSI. Please see intraoperative | | grid for any additional medication documentation. | |Attempts: 1 | |Airway type: endotracheal | |Size: 7 | |Cuffed: cuffed | |Route, reference point: right side of mouth | |Tube depth: 22 cm | |Tube secured with: adhesive tape | |Trauma: none | |Tube placement verification: bilateral chest rise, carbon dioxide detection and equal bilat eral breath sounds | |Performing provider: Dejuan Stubbs Jr., MD | | | |Comments: Easy intubation, no cx's. Dental status unchanged. Uncomplicated modified RSI. | | | | | | | |Please see intraoperative grid for any additional medication documentation. | + + documented in this encounter Visit Diagnoses Not on filedocumented in this encounter Administered Medications + +--------+ +---------+------+------+ | Medication Order | MAR | Action | Dose | Rate | Site | | | Action | Date | | | | + +--------+ +---------+------+------+ | albuterol 90 mcg/puff inhaler | Given | 08/26/20 | 4 puffs | | | | Inhalation, PRN, Starting Nina | | 19 5:31 | | | | | 08/26/19 at 1725, Anesthesia | | PM PDT | | | | | Intra-op | | | | | | + +--------+ +---------+------+------+ +-------+ +---------+---+---+ | Given | 08/26/20 | 4 puffs | | | | | 19 5:25 | | | | | | PM PDT | | | | +-------+ +---------+---+---+ +---+---+ | | | +---+---+ + +-------+ +--------+---+---+ | calcium chloride injection | Given | 08/26/20 | 400 mg | | | | PRN, Starting [facility] 08/26/19 at | | 19 5:25 | | | | | 1725, Anesthesia Intra-op | | PM PDT | | | | + +-------+ +--------+---+---+ +---+---+ | | | +---+---+ + +-------+ +-----+---+---+ | ceFAZolin (ANCEF, KEFZOL) | Given | 08/26/20 | 2 g | | | | injection Intravenous, PRN, | | 19 5:18 | | | | | Starting [facility] 08/26/19 at 1718, | | PM PDT | | | | | Anesthesia Intra-op | | | | | | + +-------+ +-----+---+---+ +---+---+ | | | +---+---+ + +-------+ +--------+---+---+ | EPINEPHrine 0.1 mg/mL syringe | Given | 08/26/20 | 0.1 mg | | | | Intravenous, PRN, Starting Nina | | 19 5:29 | | | | | 08/26/19 at 1729, Anesthesia | | PM PDT | | | | | Intra-op | | | | | | + +-------+ +--------+---+---+ +---+---+ | | | +---+---+ + +-------+ +--------+---+---+ | fentaNYL (PF) injection | Given | 08/26/20 | 50 mcg | | | | Intravenous, PRN, Starting Nina | | 19 7:02 | | | | | 08/26/19 at 1710, Anesthesia | | PM PDT | | | | | Intra-op | | | | | | + +-------+ +--------+---+---+ +-------+ +--------+---+---+ | Given | 08/26/20 | 50 mcg | | | | | 19 6:55 | | | | | | PM PDT | | | | +-------+ +--------+---+---+ | Given | 10/17/20 | 50 mcg | | | | | 19 6:37 | | | | | | PM PDT | | | | +-------+ +--------+---+---+ +---+---+ | | | +---+---+ + +-------+ +--------+---+---+ | glycopyrrolate (GIOVANI) | Given | 08/26/20 | 0.6 mg | | | | injection Intravenous, PRN, | | 19 6:28 | | | | | Starting Nina 08/26/19 at 1828, | | PM PDT | | | | | Anesthesia Intra-op | | | | | | + +-------+ +--------+---+---+ +---+---+ | | | +---+---+ + +-------+ +--------+---+---+ | ketamine 100 mg/mL injection | Given | 08/26/20 | 140 mg | | | | Intravenous, PRN, Starting Nina | | 19 5:10 | | | | | 08/26/19 at 1710, Anesthesia | | PM PDT | | | | | Intra-op | | | | | | + +-------+ +--------+---+---+ +---+---+ | | | +---+---+ + +-------+ +-------+---+---+ | labetalol (TRANDATE) 5 mg/mL | Given | 08/26/20 | 10 mg | | | | injection Intravenous, PRN, | | 19 6:40 | | | | | Starting Nina 08/26/19 at 1840, | | PM PDT | | | | | Anesthesia Intra-op | | | | | | + +-------+ +-------+---+---+ +---+---+ | | | +---+---+ + +-------+ +------+---+---+ | midazolam (VERSED) 1 mg/mL | Given | 08/26/20 | 3 mg | | | | injection Intravenous, PRN, | | 19 5:08 | | | | | Starting Nina 08/26/19 at 1708, | | PM PDT | | | | | Anesthesia Intra-op | | | | | | + +-------+ +------+---+---+ +---+---+ | | | +---+---+ + +-------+ +------+---+---+ | neostigmine (BLOXIVERZ) 1 mg/mL | Given | 08/26/20 | 5 mg | | | | injection Intravenous, PRN, | | 19 6:28 | | | | | Starting Nina 08/26/19 at 1828, | | PM PDT | | | | | Anesthesia Intra-op | | | | | | + +-------+ +------+---+---+ +---+---+ | | | +---+---+ + +-------+ +---------+---+---+ | phenylephrine (PONCHO-SYNEPHRINE, | Given | 08/26/20 | 300 mcg | | | | VAZCULEP) 10 mg per mL injection | | 19 5:23 | | | | | Intravenous, PRN, Starting Nina | | PM PDT | | | | | 08/26/19 at 1722, Anesthesia | | | | | | | Intra-op | | | | | | + +-------+ +---------+---+---+ +-------+ +---------+---+---+ | Given | 08/26/20 | 100 mcg | | | | | 19 5:22 | | | | | | PM PDT | | | | +-------+ +---------+---+---+ +---+---+ | | | +---+---+ + +-------+ +-------+---+---+ | rocuronium (ZEMURON) injection | Given | 08/26/20 | 20 mg | | | | Intravenous, PRN, Starting Nina | | 19 5:24 | | | | | 08/26/19 at 1710, Anesthesia | | PM PDT | | | | | Intra-op | | | | | | + +-------+ +-------+---+---+ +-------+ +-------+---+---+ | Given | 08/26/20 | 50 mg | | | | | 19 5:10 | | | | | | PM PDT | | | | +-------+ +-------+---+---+ +---+---+ | | | +---+---+ + +---------+ +---+---+---+ | sodium chloride 0.9% (NS) | New Bag | 08/26/20 | | | | | infusion Intravenous, CONTINUOUS | | 19 6:36 | | | | | PRN, Starting [facility] 08/26/19 at | | PM PDT | | | | | 1701, Anesthesia Intra-op | | | | | | + +---------+ +---+---+---+ +---------+ +---+---+---+ | New Bag | 08/26/20 | | | | | | 19 5:49 | | | | | | PM PDT | | | | +---------+ +---+---+---+ | New Bag | 08/26/20 | | | | | | 19 5:01 | | | | | | PM PDT | | | | +---------+ +---+---+---+ +---+---+ | | | +---+---+ documented in this encounter
--- OUTSIDE RECORDS SUMMARY | ~2020-04-05 | XMS | Encounter Summary ---
Demographics + + + | Address | [address] | | | [place] [address] | + + + | Home Phone [...] [place], [place] | | | | | [address] | | + + + + + | Lydia Palm | ECON | [place], [place] | | | | | [address] | | + + + + + | melinda METZ" | ECON | [place], [place] | | | [place] | | [address] | | + + + + + | Jose C Oconnor | ECON | [address] | | | | | [place] | | | | | [address] | | + + + + + Care Team Providers + +------+ + | Care Timber Management Assistant Name | Role | Phone | [...] | daily thru | [address] | [place] [address] | | | | | February 23, | [place], [place] | Phone: | | | | | Peritonitis | [address] | [phone] | | | | | Procedures | Phone: | Fax: | | | | | [place] | [phone] | [phone] | | | | | [place], | Fax: | | | | | | [address] [place] | [phone] | | | | | | IV [...] + + | 02/22/ | Hospital | [facility] | Unknown, | Peritonitis | | 2019 | Encounter | [facility] OP [facility]ION | MD Iris Kinney | associated with | | | | [address] | [phone] | peritoneal dialysis, | | | | [place] | | initial encounter | | | | [address] | | (HCC) (Primary Dx) | | | | [phone] | | | +--------+ + + + [...]
--- OUTSIDE RECORDS SUMMARY | ~2020-04-05 | XMS | Encounter Summary ---
Demographics + + + | Address | [address] | | | [place] [address] | + + + | Home Phone [...] [place], [place] | | | | | [address] | | + + + + + | Lydia Palm | ECON | [place], [place] | | | | | [address] | | + + + + + | melinda METZ" | ECON | [place], [place] | | | [place] | | [address] | | + + + + + | Jose C Oconnor | ECON | [address] | | | | | [place] | | | | | [address] | | + + + + + Care Team Providers + +------+ + | Care Hospital Staff Pharmacist Name | Role | Phone | + +------+ + | Juan F Whitley PCP | | + +------+ + Encounter Details +--------+ + + + + | Date | Type | Department | Care Team | Description | +--------+ + + + + | 01/31/ | Emergency | [facility] | | | | 2018 | | [facility] | | | | | | EM[facility]Y [facility]ENTER | | | | | | [address] [facility] | | | | | | [place], [place] | | | | | | [address] | | | | | | [phone] | | | +--------+ + + + [...]
--- OUTSIDE RECORDS SUMMARY | ~2020-04-05 | XMS | Encounter Summary ---
Demographics + + + | Address | [address] | | | [place] [address] | + + + | Home Phone [...] [place], [place] | | | | | [address] | | + + + + + | Lydia Palm | ECON | [place], [place] | | | | | [address] | | + + + + + | melinda METZ" | ECON | [place], [place] | | | reba | | [id number] | | + + + + + | Jose C Oconnor | ECON | [place] | | | | | [place] | | | | | [address] | | + + + + + Care Team Providers + +------+ + | Care Uke Driver Name | Role | Phone | + [...] + + | 11/04/ | Telephone | [facility] | [place], | Pre-Op (confirmed | | 2019 | | [facility] | MD Kary Gonzalez | arrival for 11/05 | | | | [address] | [address] | procedure) | | | | [place], [place] | [place] [address] | | | | | [address] | [phone] | | | | | [phone] | | | +--------+ + + + [...]
--- OUTSIDE RECORDS SUMMARY | ~2020-04-05 | XMS | Encounter Summary ---
Demographics + + + | Address | [address] | | | [place] [address] | + + + | Home Phone [...] [place], [place] | | | | | [address] | | + + + + + | Lydia Palm | ECON | [place], [place] | | | | | [address] | | + + + + + | melinda METZ" | ECON | [place], [place] | | | reba | | [address] | | + + + + + | Jose C Reeves | ECON | [place] | | | | | [place] | | | | | [address] | | + + + + + Care Team Providers + +------+ + | Care Calciner Operator Name | Role | Phone | + +------+ + PCP | Unavailable | + +------+ + Encounter Details +--------+ + + + + | Date | Type | Department | Care Team | Description | +--------+ + + + + | 10/25/ | Hospital | [facility] | Ami Chavez, | Renal failure; | | 2015 - | Encounter | [facility] [address] | [address] | Anemia, unspecified | | | | [address] | [place] | anemia type; Rectal | | 10/31/ | | [place], [place] | [id number] | bleed | | 2015 | | [address] | | | | | | [phone] | | | +--------+ + + + [...] Discharge Summaries by ODALIS LedezmaR2 at 10/31/15 257 Author: ODALIS LedezmaR2 Service: Hospitalist Author Type: Resident Filed: 10/31/15 180 Date of Service: 10/31/151429 Status: Attested Towboat Pilot: ODALIS LedezmaR2 (Resident-Y2) Cosigner: Kemal Maloney MD at 1844 Attestation signed by Kemal Maloney MD at 10/31/151844 Patient seen and examined. Renal biopsy showed global glomerulosclerosis. Patient is tolera ting PD well and uremic symptoms have resolved. Will receive PD training tomorrow in [place]. Discussed with Dr. Reyna. Agree with discharge note by Dr. Hyde. [facility] Service: Hospitalist Discharge Summary [...] on labs done earlier this week at [facility]. HOSPITAL COURSE: Patient presented with malaise, [...] INSERTION; Surgeon: Mundo Ramos MD; L ocation: [facility]; Service: Vascular; Laterality: N/A; No [...] >40 mg/dL Final Comment: Testing performed at [address] [address] TRIGLYCERIDES Date Value Ref Range Status 10/26/2015 137 <150 mg/dL Final Comment: Testing performed at [facility], [address] [place] [address] LDL CALC Date Value Ref Range Status 10/26/2015 62 <100 mg/dL Final Comment: Testing performed at [address] [address] CHOLESTEROL Date Value Ref Range Status 10/26/2015 125 <200 mg/dL Final Comment: Testing performed at [address] [address] X-ray Chest 2 View Frontal & Lateral [...] timeout was performed. Patient positioning: Prone. Axial pen maker images w ere obtained through region of [...] up: [facility] [address] [facility] [address] Mundo Ramos MD [address] [place] [address] Follow up in 2 week(s) [facility] [address] [facility] [id number] Follow up on 11/01/2015 Please be there for your dialysis training, starting tomorrow at 7am. Medication List START taking these medications diphenhydrAMINE 25 mg capsule QTY: 30 capsule Refills: 0 Commonly known as: BENADRYL Take 1 capsule by mouth every 6 (six) hours as needed for Itching. 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 You may get the following medications from [...] Date of Service: 10/31/15 162 Status: Signed Towboat Pilot: Conchita Valencia RD (Registered Dietitian) RD received call to provide renal diet education to pt and family prior to discharge this a fternoon. Discussed diet with pt, , and family, including Phos, K+, Sodium restrictions and hi gh protein diet. Provided handouts from the [employer]. Answered all questions. Encouraged followup with dialysis dietitian. Conchita Valencia RD onver patric Transaction, Provider Unknown - 10/31/2015 3:23 PM PST Nurse Progress Note by Cielo Beebe RN at 10/31/15 1523 Author: Cielo Beebe RN Service: (none) Author Type: Registered Nurse Filed: 10/31/15 1524 Date of Service: 10/31/15 1523 Status: Signed Towboat Pilot: Cielo Beebe RN (Registered Nurse) Pt has been discharged home. She knows to follow up as directed tomorrow at [facility] for nito virk. She is ambulating, [...] Date of Service: 10/31/15 1252 Status: Signed Towboat Pilot: Amrik Reyna MD (Physician) PCP : [facility] LOS: 6 days Ramona Reeves is a 35 y.o. 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 She started with urgent PD protocol. Assumed [...] manifested with uremic sympt oms. She initiated PEDIATRIC GENETICIST with PD 10/28/15. Clinically close to euvolemic [...] outpatient dialysis once spot is obtained in [place]. Discussed with the home dialysis coordinator, Flakita. sHe may be discharged today and really to go to [place] tomorrow to begin training. I have had [...] charting completed later after rounds. Dictation software, [employer], used which may contain error for similar [...] Notes by Irvin Hyde MD-R2 at 10/31/15 5473 Author: Irvin Hyde MD-R2 Service: Hospitalist Author Type: Resident Filed: 10/31/15 1206 Date of Service: 10/31/15 1149 Status: Attested Towboat Pilot: Irvin Hyde MD-R2 (Resident-Y2) Cosigner: Kemal Maloney MD at 100 Attestation signed by Kemal Maloney MD at 10/31/15 183 Patient seen and examined. Discussed with Dr. Reyna. Will discharge home today. Agree with this note of Dr. Hyde. [facility] Service: Hospitalist Progress Note Hospital Day: [...] on labs done earlier this week at [facility]. Events Overnight: Patient states her nausea [...] with case management, for Da Becky in [place]. Active Problems: UTI (urinary tract infection) - [...] Francoise Aparicio RN Service: (none) Author Type: Director [employer] Filed: 10/31/15 1134 Date of Service: 10/31/15 1130 Status: Signed Towboat Pilot: Francoise Aparicio RN (Director [employer]) Phone call from [facility] (medicaid case management) [phone]. She is willing to work on getting [facility] nurses to visit pt upon DC as well as have contact with pt to see that she has all the services she needs upon DC. onver patric Transaction, Provider Unknown - 10/30/2015 3:44 PM PST Progress Notes by Ayanna Cheek at 10/30/15 3344 Author: Ayanna Cheek Service: (none) Author Type: (none) Filed: 10/30/15 5617 Date of Service: 10/30/15 2341 Status: Signed Towboat Pilot: Ayanna Cheek Spoke to patient who chose [facility]. Referral and medical records sent to [facility] Admissions on 10/30/15 at 3:30 p.m. Amrik Moreno MD - 10/30/2015 2:37 PM PSTFormatting of this note might be different from the or iginal. Progress Notes by Amrik Reyna MD at 10/30/15 2039 Author: Amrik Reyna MD Service: Nephrology Author Type: Physician Filed: 10/30/15 1492 Date of Service: 10/30/15 5099 Status: Signed Towboat Pilot: Amrik Reyna MD (Physician) PCP : [facility] LOS: 5 days Ramona Reeves is a 35 y.o. 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 She started with urgent PD protocol. Assumed [...] manifested with uremic sympt oms. She initiated PEDIATRIC GENETICIST with PD 10/28/15. Clinically close to euvolemic [...] outpatient dialysis once spot is obtained in [place]. I have had a discussion regarding need [...] charting completed later after rounds. Dictation software, [employer], used which may contain error for similar [...] Service: Hospitalist Author Type: Resident Filed: 10/30/15 3341 Date of Service: 10/30/15 1302 Status: Attested Towboat Pilot: Irvin Hyde MD-R2 (Resident-Y2) Cosigner: Cesar Gatica MD at 10/30/151830 Attestation signed by Cesar Gatica MD at 10/30/151830 I have seen and examined the patient and agree with the residents note [facility] Service: Hospitalist Progress Note Hospital Day: [...] on labs done earlier this week at [facility]. Events Overnight: Patient states her nausea [...] Francoise Aparicio RN Service: (none) Author Type: Director [employer] Filed: 10/30/15 1044 Date of Service: 10/30/15 104 Status: Signed Towboat Pilot: Francoise Aparicio RN (Director [employer]) Phone call to Ayanna Cheek [phone] (covering for Soo Portillo dialysis coordinator), she will work on arranging chair time in the [place] area and notify us of times. onver patric Transaction, Provider Unknown - 10/29/2015 8:02 PM PST Progress Notes by Ashleigh Rudolph RN at 10/29/152001 Author: Ashleigh Rudolph RN Service: Nephrology Author Type: Registered Nurse Filed: 10/29/152006 Date of Service: 10/29/152001 Status: Signed Towboat Pilot: Ashleigh Rudolph RN (Registered Nurse) Pt Found [...] Notes by Laura Fung RD at 10/29/15 5668 Author: Laura Fung RD Service: (none) Author Type: Registered Dietitian Filed: 10/30/15 0856 Date of Service: 10/29/15 1738 Status: Signed Towboat Pilot: Laura Fung RD (Registered Dietitian) 10/29/15 1703 [...] Notes by Cesar Gatica MD at 10/29/15 0012 Author: Cesar Gatica MD Service: Hospitalist Author Type: Physician Filed: 10/30/15 6913 Date of Service: 10/29/15 1242 Status: Addendum Towboat Pilot: Cesar Gatica MD (Physician) Related Notes: Original Note by Cesar Gatica MD (Physician) filed at 10/29/15 7414 [facility] Service: Hospitalist Progress Note Hospital Day: [...] hours. No results for input(s): PHART, PO2ART, ASJ4QUQ, R8ULBORU, BEART in the last 168 hours. Recent [...] DVT prophylaxis: Heparin. Code Status: Full Code Ceasr Gatica MD 10/29/2015 12:42 PM Viri Clark MD - 10/29/2015 12:15 PM PST Progress Notes by Amrik Reyna MD at 10/29/15 8729 Author: Amrik Reyna MD Service: Nephrology Author Type: Physician Filed: 10/29/152006 Date of Service: 10/29/15 8754 Status: Signed Towboat Pilot: Amrik Reyna MD (Physician) PCP : [facility] LOS: 4 days Ramona Reeves is a 35 y.o. woman followed for CKD stage 5 presenting with uremia a nd needing to start PEDIATRIC GENETICIST. Assumed nephrology care from Dr. Chi 10/27/15 [...] sampling for IF or EM. Serological workup [facility] hepatitis panel, HIV testing, syphilis negative. Imaging with kidney ultrasound from 10/10 04/24, seen by myself, shows normal sized kidneys. Diagnostic kidney biopsy has been done . It is quite possible she has chronic kidney disease which is now manifested with urem ic symptoms. She initiated PEDIATRIC GENETICIST with PD 10/28/15. BP okay: Clinically close [...] charting completed later after rounds. Dictation software, [employer], used which may contain error for similar [...] 10/29/151013 Date of Service: 10/29/151012 Status: Signed Towboat Pilot: Mundo Ramos MD (Physician) [facility] Service: Vascular Surgery Progress Note Peritoneal [...] 10/28/151958 Date of Service: 10/28/151951 Status: Signed Towboat Pilot: Amrik Reyna MD (Physician) PCP : [facility] LOS: 3 days Ramona Reeves is a [...] charting completed later after rounds. Dictation software, [employer], used which may contain error for similar [...] Service: Hospitalist Author Type: Resident Filed: 10/28/15 4681 Date of Service: 10/28/15909 Status: Attested Towboat Pilot: Irvin Hyde MD-R2 (Resident-Y2) Cosigner: Cesar Gatica MD at 10/29/15 1245 Attestation signed by Cesar Gatica MD at 10/29/15 1245 I have seen and examined the patient and agree with residents note [facility] Service: Hospitalist Progress Note Hospital Day: [...] on labs done earlier this week at [facility]. Events Overnight: Patient remains nauseated with [...] Date of Service: 10/27/15 1441 Status: Signed Towboat Pilot: Amrik Reyna MD (Physician) PCP : [facility] LOS: 2 days Ramona Reeves is [...] charting completed later after rounds. Dictation software, [employer], used which may contain error for similar [...] Service: Hospitalist Author Type: Resident Filed: 10/27/15 9582 Date of Service: 10/27/15 1123 Status: Attested Towboat Pilot: Irvin Hyde MD-R2 (Resident-Y2) Cosigner: Cesar Gatica MD at 10/28/15 1444 Attestation signed by Cesar Gatica MD at 10/28/15 1444 I have seen and examined the patient and agree with the residents note [facility] Service: Hospitalist Progress Note Hospital Day: [...] on labs done earlier this week at [facility]. Events Overnight: Patient is still fatigued [...] trending down, 14.69 today. BUN 109. - [place] and [employer] light [employer] ratio is normal. [...] Malnutrition - Patient has been seen by [facility] Hospital records reviewed. Labs and radiologic studies [...] Case Management by LUCILLE Neumann at 10/26/15 2039 Author: LUCILLE Neumann Service: (none) Author Type: Director [employer] Filed: 10/26/15 4804 Date of Service: 10/26/151458 Status: Signed Towboat Pilot: LUCILLE Neumann (Director [employer]) 10/26/15 1325 Discharge Planning Evaluation Admitting Diagnosis Acute renal [...] functional status (Independent with ADL's) Power of Vascular Nurse No Anticipated Discharge Plan Post Acute Care Needs Other (comment) (TBD) Resources Financial concerns No Transportation issues No;Comment (Spouse - Jose C [phone] will transport.) Patient/Family concerns [facility] in [facility] Previous home health equipment No Vascular access device No Ostomy/Drains/Appliances No Anticipated Disposition Facility Type Home Met with patient's spouse (Jose C Reeves [phone]) for CM assessment (due to patient st ill being asleep) and discussed discharge planning. Pt is a 35 y.o., female who lives with h er spouse, sister and sister's children in [facility]. The patient has had significant weight loss in past few months...complaining that nothing tastes good, by report. Patient a [facility]mitted to [facility] with Dx of renal failure on 10-25-15. Spouse and family have been visiting a wa attentive. Patient's PCP is: [facility] Patient's insurance:[employer] and Medicaid Coverage concerns: no Medication coverage/concerns: no [facility] Bed[facility] Delivery: Community resources utilized / needed: TBD Assistance in transportation: Spouse - Jose C [phone] Identification of any specific education / training: [...] 10/27/15115 Date of Service: 10/26/151201 Status: Addendum Towboat Pilot: Chago Chi MD (Physician) Related Notes: Original Note by Chago Chi MD (Physician) filed at 10/27/15 011 [facility] Service: Nephrology Progress Note Hospital Problem [...] results tomorrow 4. No acute indication for PEDIATRIC GENETICIST at this time. 5. Epo subcut 10K [...] Notes by Irvin Hyde MD-R2 at 10/26/15 3310 Author: Irvin Hyde MD-R2 Service: Hospitalist Author Type: Resident Filed: 10/26/15 2220 Date of Service: 10/26/15 1136 Status: Attested Towboat Pilot: Irvin Hyde MD-R2 (Resident-Y2) Cosigner: Cesar Gatica MD at 10/27/15 0040 Attestation signed by Cesar Gatica MD at 10/27/15 1630 I have seen and examined the patient and agree with the residents note [facility] Service: Hospitalist Progress Note Hospital Day: [...] on labs done earlier this week at [facility]. Events Overnight: Patient seen and examined. [...] the original. Progress Notes by Jess Paz Business Planning Director at 10/26/15 1100 Author: Aleksandra Corral Intern Service: (none) Author Type: Registered Dietitian Filed: 10/26/15 1100 Date of Service: 10/26/15 1100 Status: Attested Towboat Pilot: Ysabel Corraletic Intern (Registered Dietitian) Cosigner: ALL Rider 10/26/15 1137 Attestation signed by Isaiah Grimaldo RD at 10/26/[address] 10/26/15 1004 Subjective Timepoint Admit Pt c/o Pt triggered for screen secondary to weight loss and poor oral intake. Admitted to [facility] with acute renal failure of unknown etiology. [...] Date of Service: 10/26/15 1018 Status: Signed Towboat Pilot: Rohan Chase MD (Physician) [facility] Service: Radiology Sedation Note See separate [...] Oximetry: yes IV access: yes Suction: yes threat monitoring analyst: yes Heart sounds: normal Lung sounds: clear [...] 10/26/15701 Date of Service: 10/26/15700 Status: Signed Towboat Pilot: Christina Snowden RN (Registered Nurse) Dr. Chi notified of hemoglobin and hematocrit results this morning. Orders to transfuse t he 2 units now. Kandice Snowden RN onver patric Transaction, Provider Unknown - 10/26/2015 12:57 AM PST Progress Notes by Christina Snowden RN at 10/26/1556 Author: Christina Snowden RN Service: (none) Author Type: Registered Nurse Filed: 10/26/1556 Date of Service: 10/26/1556 Status: Signed Towboat Pilot: Christina Snowden RN (Registered Nurse) Patient and mother informed of need for urine specimen. Kandice Snowden RN onver patric Transaction, Provider Unknown - 10/25/2015 10:00 PM PST Progress Notes by Christina Snowden RN at 10/25/152199 Author: Christina Snowden RN Service: (none) Author Type: Registered Nurse Filed: 10/25/152205 Date of Service: 10/25/152199 Status: Signed Towboat Pilot: Christina Snowden RN (Registered Nurse) Confirmed with Dr. Chi no blood transfusion to be given tonight. Also informed of new c/o chest discomfort. Kandice Snowden RN onver patric Transaction, Provider Unknown - 10/25/2015 9:55 PM PST Progress Notes by Christina Snowden RN at 10/25/152154 Author: Christina Snowden RN Service: (none) Author Type: Registered Nurse Filed: 10/25/152207 Date of Service: 10/25/152154 Status: Signed Towboat Pilot: Christina Snowden RN (Registered Nurse) Dr. Chavez [...] 10/25/152134 Date of Service: 10/25/152134 Status: Signed Towboat Pilot: Georgette Cardozo RPH (Pharmacist) Renal Dosing Monitoring: [...] Author: LUCILLE Cloud Service: (none) Author Type: Customer Success Representative Filed: 10/25/151756 Date of Service: 10/25/151756 Status: Signed Towboat Pilot: LUCILLE Cloud (Customer Success Representative) Discharge planning: CM spoke with pt's ED MD regarding discharge needs. Per MD s report , he did not identify needs and feels that the pt does not need to be seen by a Director [employer] at this time. I encouraged a CM [...] | | | | | [place] [address] | | | | + + + + + + | Red Blood | 2.89 (L)Comment: Testing | 3.70 - 5.10 | EXTERNAL | | | Cells | performed at [facility], [address] | M/uL | LAB | | | Counted | [address], | | | | | | [place] [address] | | | | + + + + + + | Hemoglobin | 7.9 (L)Comment: Testing | 11.3 - 15.5 | EXTERNAL | | | | performed at [facility], [address] | g/dL | LAB | | | | [address], | | | | | | [place] [address] | | | | + + + + + + | Hematocrit, | 24.2 (L)Comment: Testing | 34.0 - 46.0 % | EXTERNAL | | | POC | performed at [facility], [address] | | LAB | | | | [address], | | | | | | [place] [address] | | | | + + + + + + | MCV | 83.9Comment: Testing | 80.0 - 100.0 fl | EXTERNAL | | | | performed at [facility], [address] | | LAB | | | [address], | | | | | | [place] [address] | | | | + + + + + + | MCH | 27.2Comment: Testing | 27.0 - 34.0 pg | EXTERNAL | | | | performed at [facility], [address] | | LAB | | | | [address], | | | | | | [place] [address] | | | | + + + + + + | MCHC | 32.5Comment: Testing | 32.0 - 35.5 | EXTERNAL | | | | performed at [facility], [address] | g/dL | LAB | | | | [address], | | | | | | [place] [address] | | | | + + + + + + | RDW-CV | 48.1Comment: Testing | 37 - 53 fl | EXTERNAL | | | | performed at [facility], [address] | | LAB | | | | [address], | | | | | | [place] [address] | | | | + + + + + + | Platelet | 226Comment: Testing | 150 - 400 K/uL | EXTERNAL | | | Count | performed at [facility], [address] | | LAB | | | Plasma | [address], | | | | | | [place] [address] | | | | + + + + + + | MPV | 9.3Comment: Testing | fl | EXTERNAL | | | | performed at [facility], [address] | | LAB | | | | [address], | | | | | | [place] [address] | | | | + + + + + + | Differentia | AUTOMATEDComment: | | EXTERNAL | | | l Type | Testing performed at | | LAB | | | | [facility], [address] | | | | | | [place] | | | | | | [address] | | | | + + + + + + | % Segmented | 67.15Comment: Testing | % | EXTERNAL | | | | performed at [facility], [address] | | LAB | | | Neutrophils | [address], | | | | | | [place] [address] | | | | + + + + + + | % | 8.38Comment: Testing | % | EXTERNAL | | | Lymphocytes | performed at [facility], [address] | | LAB | | | | [address], | | | | | | [place], [place] [address] | | | | + + + + + + | % Monocytes | 5.32Comment: Testing | % | EXTERNAL | | | | performed at [facility], [address] | | LAB | | | | [address], | | | | | | [place] [address] | | | | + + + + + + | % | 18.83Comment: Testing | % | EXTERNAL | | | Eosinophils | performed at [facility], [address] | | LAB | | | | [address], | | | | | | [place] [address] | | | | + + + + + + | % Basophils | 0.32Comment: Testing | % | EXTERNAL | | | | performed at [facility], [address] | | LAB | | | | [address], | | | | | | [place] [address] | | | | + + + + + + | Absolute | 6.03Comment: Testing | 1.90 - 7.40 | EXTERNAL | | | Segmented | performed at [facility], [address] | K/uL | LAB | | | Neutrophils | [address], | | | | | | [place] [address] | | | | + + + + + + | Absolute | 0.75 (L)Comment: Testing | 1.00 - 3.90 | EXTERNAL | | | Lymphocytes | performed at [facility], [address] | K/uL | LAB | | | | [address], | | | | | | [place] [address] | | | | + + + + + + | Absolute | 0.48Comment: Testing | 0.00 - 0.80 | EXTERNAL | | | Monocytes | performed at [facility], [address] | K/uL | LAB | | | | [address], | | | | | | [place] [address] | | | | + + + + + + | Absolute | 1.69 (H)Comment: Testing | 0.00 - 0.50 | EXTERNAL | | | Eosinophils | performed at [facility], [address] | K/uL | LAB | | | | [address], | | | | | | [place] [address] | | | | + + + + + + | Absolute | 0.03Comment: Testing | 0.00 - 0.10 | EXTERNAL | | | Basophils | performed at [facility], [address] | K/uL | LAB | | | | [address], | | | | | | [place] [address] | | | | + + + [...] EXTERNAL | | | | performed at [facility], [address] | | LAB | | | | [address], | | | | | | [place] [address] | | | | + + + [...] EXTERNAL | | | | performed at [facility], [address] | mmol/L | LAB | | | | [address], | | | | | | [place] [address] | | | | + + + + + + | K | 3.8Comment: Testing | 3.5 - 4.9 | EXTERNAL | | | | performed at [facility], [address] | mmol/L | LAB | | | | [address], | | | | | | [place] [address] | | | | + + + + + + | Cl | 98 (L)Comment: Testing | 99 - 109 mmol/L | EXTERNAL | | | | performed at [facility], [address] | | LAB | | | | [address], | | | | | | [place] [address] | | | | + + + + + + | CO2 | 23Comment: Testing | 23 - 32 mmol/L | EXTERNAL | | | | performed at [facility], [address] | | LAB | | | | [address], | | | | | | [place] [address] | | | | + + + + + + | Anion Gap | 19Comment: Testing | 5 - 20 mmol/L | EXTERNAL | | | | performed at [facility], [address] | | LAB | | | | [address], | | | | | | [place] [address] | | | | + + + + + + | Glucose, | 79Comment: Testing | 65 - 99 mg/dL | EXTERNAL | | | Fasting | performed at [facility], [address] | | LAB | | | | [address], | | | | | | [place] [address] | | | | + + + + + + | BUN | 97 (H)Comment: Testing | 8 - 25 mg/dL | EXTERNAL | | | | performed at [facility], [address] | | LAB | | | | [address], | | | | | | [place] [address] | | | | + + + + + + | Creatinine | 14.12 (H)Comment: | 0.50 - 1.00 | EXTERNAL | | | | Testing performed at | mg/dL | LAB | | | | [facility], [address] | | | | | | [place] | | | | | | [address] | | | | + + + + + + | Calcium | 7.2 (L)Comment: Testing | 8.5 - 10.5 | EXTERNAL | | | | performed at [facility], [address] | mg/dL | LAB | | | | [address], | | | | | | [place] [address] | | | | + + + + + + | Albumin | 2.9 (L)Comment: Testing | 3.6 - 5.0 g/dL | EXTERNAL | | | | performed at [facility], [address] | | LAB | | | | [address], | | | | | | [place] [address] | | | | + + + + + + | PHOSPHORUS | 8.6 (H)Comment: Testing | 2.3 - 4.8 mg/dL | EXTERNAL | | | | performed at [facility], [address] | | LAB | | | | [address] [facility], | | | | | | [place] [address] | | | | + + + [...] | | | | | | [facility], | | | | | | [place] [address] | | | | + + + [...] at | | | [facility], [address] [place] [address] | | + + + + +---------+ [...] EXTERNAL LAB | | Testing performed at [facility] [address] [address] COLOR | | | COLORLESS Testing performed | | | at [facility] [address];[place] [address] APPEARANCE | | | CLEAR Testing performed at [facility] [address] | | | [address]vd;[place] [address] RBC'S | | | <[phone] Testing performed at [facility] [address];[place], [place] | | | [address] TOTAL NUCLEATED CELLS 145 | | | Testing performed at [facility] [address];[place] [address] NEUTROPHILS | | | 16 Testing performed | | | at [facility] [address];[place] [address] LYMPHOCYTES | | | 4 Testing performed at [facility] [address] | | | Blvd;[place] [address] MONOCYTES/MACROPHAGES 18 | | | Testing performed at [facility] [address];[place] [address] | | | EOSINOPHILS 62 | | | Testing performed at [facility] [address];[place] [address] CELLS | | | COUNTED 100 Testing | | | performed at [facility];[address] [place] [address];[place] [address] | | + + + + +---------+ [...] EXTERNAL LAB | | IS NOT A PULP DRIER FIRER VALIDATED SAMPLE TYPE FOR THIS METHOD. NO | | | REFERENCE RANGES HAVE BEEN ESTABLISHED. RESULT VERIFIED Testing | | | performed at [facility], [address] [place] [address] | | + + + + +---------+ [...] | EXTERNAL LAB | | NOT A PULP DRIER FIRER VALIDATED SAMPLE TYPE FOR THIS METHOD. NO | | | REFERENCE RANGES HAVE BEEN ESTABLISHED. RESULT VERIFIED Testing | | | performed at [facility], [address] [facility], [place] [address] | | | Glucose, Fluid Type PERITONEAL FLUID Testing | | | performed at [facility];[address] [facility];[place] [address] | | + + + + +---------+ [...] | EXTERNAL LAB | | NOT A PULP DRIER FIRER VALIDATED SAMPLE TYPE FOR THIS METHOD. NO | | | REFERENCE RANGES HAVE BEEN ESTABLISHED. RESULT VERIFIED Testing | | | performed at [facility], [address] [place] [address] | | + + + + +---------+ [...] EXTERNAL | | | | performed at [facility], [address] | K/uL | LAB | | | | [address], | | | | | | [place] [address] | | | | + + + + + + | Red Blood | 2.84 (L)Comment: Testing | 3.70 - 5.10 | EXTERNAL | | | Cells | performed at [facility], [address] | M/uL | LAB | | | Counted | [address], | | | | | | [place] [address] | | | | + + + + + + | Hemoglobin | 7.7 (L)Comment: Testing | 11.3 - 15.5 | EXTERNAL | | | | performed at [facility], [address] | g/dL | LAB | | | | [address], | | | | | | [place] [address] | | | | + + + + + + | Hematocrit, | 24.0 (L)Comment: Testing | 34.0 - 46.0 % | EXTERNAL | | | POC | performed at [facility], [address] | | LAB | | | | [address], | | | | | | [place] [address] | | | | + + + + + + | MCV | 84.3Comment: Testing | 80.0 - 100.0 fl | EXTERNAL | | | | performed at [facility], [address] | | LAB | | | | [address], | | | | | | [place] [address] | | | | + + + + + + | MCH | 26.9 (L)Comment: Testing | 27.0 - 34.0 pg | EXTERNAL | | | | performed at [facility], [address] | | LAB | | | | [address], | | | | | | [place] [address] | | | | + + + + + + | MCHC | 32.0Comment: Testing | 32.0 - 35.5 | EXTERNAL | | | | performed at [facility], [address] | g/dL | LAB | | | | [address], | | | | | | [place] [address] | | | | + + + + + + | RDW-CV | 45.9Comment: Testing | 37 - 53 fl | EXTERNAL | | | | performed at [facility], [address] | | LAB | | | | [address], | | | | | | [place] [address] | | | | + + + + + + | Platelet | 210Comment: Testing | 150 - 400 K/uL | EXTERNAL | | | Count | performed at [facility], [address] | | LAB | | | Plasma | [address], | | | | | | [place] [address] | | | | + + + + + + | MPV | 9.4Comment: Testing | fl | EXTERNAL | | | | performed at [facility], [address] | | LAB | | | | [address], | | | | | | [place] [address] | | | | + + + + + + | Differentia | AUTOMATEDComment: | | EXTERNAL | | | l Type | Testing performed at | | LAB | | | | [facility], [address] | | | | | | [place] | | | | | | [address] | | | | + + + + + + | % Segmented | 72.16Comment: Testing | % | EXTERNAL | | | | performed at [facility], [address] | | LAB | | | Neutrophils | [address], | | | | | | [place] [address] | | | | + + + + + + | % | 8.40Comment: Testing | % | EXTERNAL | | | Lymphocytes | performed at [facility], [address] | | LAB | | | | [address], | | | | | | [place] [address] | | | | + + + + + + | % Monocytes | 4.74Comment: Testing | % | EXTERNAL | | | | performed at [facility], [address] | | LAB | | | | [address], | | | | | | [place] [address] | | | | + + + + + + | % | 14.32Comment: Testing | % | EXTERNAL | | | Eosinophils | performed at [facility], [address] | | LAB | | | | [address], | | | | | | [place] [address] | | | | + + + + + + | % Basophils | 0.38Comment: Testing | % | EXTERNAL | | | | performed at [facility], [address] | | LAB | | | | [address], | | | | | | [place] [address] | | | | + + + + + + | Absolute | 7.58 (H)Comment: Testing | 1.90 - 7.40 | EXTERNAL | | | Segmented | performed at [facility], [address] | K/uL | LAB | | | Neutrophils | [address], | | | | | | [place] [address] | | | | + + + + + + | Absolute | 0.88 (L)Comment: Testing | 1.00 - 3.90 | EXTERNAL | | | Lymphocytes | performed at [facility], [address] | K/uL | LAB | | | | [address], | | | | | | [place] [address] | | | | + + + + + + | Absolute | 0.50Comment: Testing | 0.00 - 0.80 | EXTERNAL | | | Monocytes | performed at [facility], [address] | K/uL | LAB | | | | [address], | | | | | | [place] [address] | | | | + + + + + + | Absolute | 1.51 (H)Comment: Testing | 0.00 - 0.50 | EXTERNAL | | | Eosinophils | performed at [facility], [address] | K/uL | LAB | | | | [address], | | | | | | [place] [address] | | | | + + + + + + | Absolute | 0.04Comment: Testing | 0.00 - 0.10 | EXTERNAL | | | Basophils | performed at [facility], [address] | K/uL | LAB | | | | [address], | | | | | | [place] [address] | | | | + + + [...] EXTERNAL | | | | performed at [facility], [address] | | LAB | | | | [address], | | | | | | [place] [address] | | | | + + + [...] | | | | | [place] [address] | | | | + + + + + + | K | 3.7Comment: Testing | 3.5 - 4.9 | EXTERNAL | | | | performed at [facility], [address] | mmol/L | LAB | | | | [address], | | | | | | [place] [address] | | | | + + + + + + | Cl | 99Comment: Testing | 99 - 109 mmol/L | EXTERNAL | | | | performed at [facility], [address] | | LAB | | | | [address], | | | | | | [place] [address] | | | | + + + + + + | CO2 | 24Comment: Testing | 23 - 32 mmol/L | EXTERNAL | | | | performed at [facility], [address] | | LAB | | | | [address], | | | | | | [place] [address] | | | | + + + + + + | Anion Gap | 20Comment: Testing | 5 - 20 mmol/L | EXTERNAL | | | | performed at [facility], [address] | | LAB | | | | [address], | | | | | | [place] [address] | | | | + + + + + + | Glucose, | 84Comment: Testing | 65 - 99 mg/dL | EXTERNAL | | | Fasting | performed at [facility], [address] | | LAB | | | | [address], | | | | | | [place] [address] | | | | + + + + + + | BUN | 104 (H)Comment: Testing | 8 - 25 mg/dL | EXTERNAL | | | | performed at [facility], [address] | | LAB | | | | [address], | | | | | | [place] [address] | | | | + + + + + + | Creatinine | 14.91 (H)Comment: | 0.50 - 1.00 | EXTERNAL | | | | Testing performed at | mg/dL | LAB | | | | [facility], [address] | | | | | | [place] | | | | | | [address] | | | | + + + + + + | Calcium | 6.5 (L)Comment: Testing | 8.5 - 10.5 | EXTERNAL | | | | performed at [facility], [address] | mg/dL | LAB | | | | [address], | | | | | | [place] [address] | | | | + + + + + + | Albumin | 2.9 (L)Comment: Testing | 3.6 - 5.0 g/dL | EXTERNAL | | | | performed at [facility], [address] | | LAB | | | | [address], | | | | | | [place] [address] | | | | + + + [...] [place] | | | | | | [address] | | | | + + + [...] [address], | | | | | | [place] [address] | | | | + + + [...] | | | | | [place] [address] | | | | + + + [...] | | | | | | at [facility], [address] | | | | | | [place], | | | | | | [place] [address] | | | | + + + [...] EXTERNAL | | | | performed at [facility], [address] | K/uL | LAB | | | | [address], | | | | | | [place] [address] | | | | + + + + + + | Red Blood | 2.60 (L)Comment: Testing | 3.70 - 5.10 | EXTERNAL | | | Cells | performed at [facility], [address] | M/uL | LAB | | | Counted | [address], | | | | | | [place] [address] | | | | + + + + + + | Hemoglobin | 7.1 (L)Comment: Testing | 11.3 - 15.5 | EXTERNAL | | | | performed at [facility], [address] | g/dL | LAB | | | | [address], | | | | | | [place] [address] | | | | + + + + + + | Hematocrit, | 21.6 (L)Comment: Testing | 34.0 - 46.0 % | EXTERNAL | | | POC | performed at [facility], [address] | | LAB | | | | [address], | | | | | | [place] [address] | | | | + + + + + + | MCV | 82.9Comment: Testing | 80.0 - 100.0 fl | EXTERNAL | | | | performed at [facility], [address] | | LAB | | | | [address], | | | | | | [place] [address] | | | | + + + + + + | MCH | 27.2Comment: Testing | 27.0 - 34.0 pg | EXTERNAL | | | | performed at [facility], [address] | | LAB | | | | [address], | | | | | | [place] [address] | | | | + + + + + + | MCHC | 32.8Comment: Testing | 32.0 - 35.5 | EXTERNAL | | | | performed at [facility], [address] | g/dL | LAB | | | | [address], | | | | | | [place] [address] | | | | + + + + + + | RDW-CV | 46.8Comment: Testing | 37 - 53 fl | EXTERNAL | | | | performed at [facility], [address] | | LAB | | | | [address], | | | | | | [place] [address] | | | | + + + + + + | Platelet | 179Comment: Testing | 150 - 400 K/uL | EXTERNAL | | | Count | performed at [facility], [address] | | LAB | | | Plasma | [address], | | | | | | [place] [address] | | | | + + + + + + | MPV | 9.8Comment: Testing | fl | EXTERNAL | | | | performed at [facility], [address] | | LAB | | | | [address], | | | | | | [place] [address] | | | | + + + + + + | Differentia | MANUALComment: Testing | | EXTERNAL | | | l Type | performed at [facility], [address] | | LAB | | | | [address], | | | | | | [place] [address] | | | | + + + + + + | Segmented | 87Comment: Testing | % | EXTERNAL | | | Neutrophils | performed at [facility], [address] | | LAB | | | Manual | [address], | | | | | | [place] [address] | | | | + + + + + + | Lymphocytes | 6Comment: Testing | % | EXTERNAL | | | Manual | performed at [facility], [address] | | LAB | | | | [address], | | | | | | [place] [address] | | | | + + + + + + | Monocytes | 5Comment: Testing | % | EXTERNAL | | | Manual | performed at [facility], [address] | | LAB | | | | [address], | | | | | | [place] [address] | | | | + + + + + + | Eosinophils | 2Comment: Testing | % | EXTERNAL | | | Manual | performed at [facility], [address] | | LAB | | | | [address], | | | | | | [place] [address] | | | | + + + + + + | Absolute | 6.87Comment: Testing | 1.90 - 7.40 | EXTERNAL | | | Neutrophils | performed at [facility], [address] | K/uL | LAB | | | | [address], | | | | | | [place] [address] | | | | + + + + + + | Absolute | 0.47 (L)Comment: Testing | 1.00 - 3.90 | EXTERNAL | | | Lymphocytes | performed at [facility], [address] | K/uL | LAB | | | | [address], | | | | | | [place] [address] | | | | + + + + + + | Absolute | 0.39Comment: Testing | 0.00 - 0.80 | EXTERNAL | | | Monocytes | performed at [facility], [address] | K/uL | LAB | | | | [address], | | | | | | [place] [address] | | | | + + + + + + | Absolute | 0.16Comment: Testing | 0.00 - 0.50 | EXTERNAL | | | Eosinophils | performed at [facility], [address] | K/uL | LAB | | | | [address], | | | | | | [place] [address] | | | | + + + + + + | RBC | RBC AND PLT MORPHOLOGY | | EXTERNAL | | | Morphology | APPEAR NORMALComment: | | LAB | | | | Testing performed at | | | | | | [facility], [address] | | | | | | [place], [place] | | | | | | [address] | | | | + + + [...] | | | | | [place] [address] | | | | + + + [...] | | | | | [place] [address] | | | | + + + + + + | K | 4.1Comment: Testing | 3.5 - 4.9 | EXTERNAL | | | | performed at [facility], [address] | mmol/L | LAB | | | | [address], | | | | | | [place] [address] | | | | + + + + + + | Cl | 99Comment: Testing | 99 - 109 mmol/L | EXTERNAL | | | | performed at [facility], [address] | | LAB | | | | [address], | | | | | | [place] [address] | | | | + + + + + + | CO2 | 23Comment: Testing | 23 - 32 mmol/L | EXTERNAL | | | | performed at [facility], [address] | | LAB | | | | [address], | | | | | | [place] [address] | | | | + + + + + + | Anion Gap | 20Comment: Testing | 5 - 20 mmol/L | EXTERNAL | | | | performed at [facility], [address] | | LAB | | | | [address], | | | | | | [place] [address] | | | | + + + + + + | Glucose, | 102 (H)Comment: Testing | 65 - 99 mg/dL | EXTERNAL | | | Fasting | performed at [facility], [address] | | LAB | | | | [address], | | | | | | [place] [address] | | | | + + + + + + | BUN | 106 (H)Comment: Testing | 8 - 25 mg/dL | EXTERNAL | | | | performed at [facility], [address] | | LAB | | | | [address], | | | | | | [place] [address] | | | | + + + + + + | Creatinine | 15.51 (H)Comment: | 0.50 - 1.00 | EXTERNAL | | | | Testing performed at | mg/dL | LAB | | | | [facility], [address] | | | | | | [place] | | | | | | [address] | | | | + + + + + + | Calcium | 6.9 (L)Comment: Testing | 8.5 - 10.5 | EXTERNAL | | | | performed at [facility], [address] | mg/dL | LAB | | | | [address], | | | | | | [place] [address] | | | | + + + + + + | Albumin | 3.0 (L)Comment: Testing | 3.6 - 5.0 g/dL | EXTERNAL | | | | performed at [facility], [address] | | LAB | | | [address], | | | | | | [place] [address] | | | | + + + + + + | PHOSPHORUS | 9.9 (HH)Comment: RESULT | 2.3 - 4.8 mg/dL | EXTERNAL | | | | READ BACK BY:CHRISTINA | | LAB | | | | P/RN/OCT 29, | | | | | | :20C/CMSTesting | | | | | | performed at [facility], [address] | | | | | | [facility], | | | | | | [place] [address] | | | | + + + [...] | | | | | | at [facility], [address] | | | | | | [address], | | | | | | [place] [address] | | | | + + + [...] EXTERNAL | | | | performed at [facility], [address] | K/uL | LAB | | | | [address], | | | | | | [place] [address] | | | | + + + + + + | Red Blood | 2.72 (L)Comment: Testing | 3.70 - 5.10 | EXTERNAL | | | Cells | performed at [facility], [address] | M/uL | LAB | | | Counted | [address], | | | | | | [place] [address] | | | | + + + + + + | Hemoglobin | 7.3 (L)Comment: Testing | 11.3 - 15.5 | EXTERNAL | | | | performed at [facility], [address] | g/dL | LAB | | | | [address], | | | | | | [place] [address] | | | | + + + + + + | Hematocrit, | 22.9 (L)Comment: Testing | 34.0 - 46.0 % | EXTERNAL | | | POC | performed at [facility], [address] | | LAB | | | | [address], | | | | | | [place] [address] | | | | + + + + + + | MCV | 84.4Comment: Testing | 80.0 - 100.0 fl | EXTERNAL | | | | performed at [facility], [address] | | LAB | | | | [address], | | | | | | [place] [address] | | | | + + + + + + | MCH | 27.1Comment: Testing | 27.0 - 34.0 pg | EXTERNAL | | | | performed at [facility], [address] | | LAB | | | [address], | | | | | | [place] [address] | | | | + + + + + + | MCHC | 32.0Comment: Testing | 32.0 - 35.5 | EXTERNAL | | | | performed at [facility], [address] | g/dL | LAB | | | | [address], | | | | | | [place] [address] | | | | + + + + + + | RDW-CV | 46.4Comment: Testing | 37 - 53 fl | EXTERNAL | | | | performed at [facility], [address] | | LAB | | | | [address], | | | | | | [place] [address] | | | | + + + + + + | Platelet | 185Comment: Testing | 150 - 400 K/uL | EXTERNAL | | | Count | performed at [facility], [address] | | LAB | | | Plasma | [address], | | | | | | [place] [address] | | | | + + + + + + | MPV | 9.4Comment: Testing | fl | EXTERNAL | | | | performed at [facility], [address] | | LAB | | | | [address], | | | | | | [place] [address] | | | | + + + + + + | Differentia | AUTOMATEDComment: | | EXTERNAL | | | l Type | Testing performed at | | LAB | | | | [facility], [address] | | | | | | [place] | | | | | | [address] | | | | + + + + + + | % Segmented | 74.34Comment: Testing | % | EXTERNAL | | | | performed at [facility], [address] | | LAB | | | Neutrophils | [address], | | | | | | [place] [address] | | | | + + + + + + | % | 6.52Comment: Testing | % | EXTERNAL | | | Lymphocytes | performed at [facility], [address] | | LAB | | | | [address], | | | | | | [place] [address] | | | | + + + + + + | % Monocytes | 4.80Comment: Testing | % | EXTERNAL | | | | performed at [facility], [address] | | LAB | | | | [address], | | | | | | [place] [address] | | | | + + + + + + | % | 13.94Comment: Testing | % | EXTERNAL | | | Eosinophils | performed at [facility], [address] | | LAB | | | | [address], | | | | | | [place] [address] | | | | + + + + + + | % Basophils | 0.40Comment: Testing | % | EXTERNAL | | | | performed at [facility], [address] | | LAB | | | | [address], | | | | | | [place] [address] | | | | + + + + + + | Absolute | 6.67Comment: Testing | 1.90 - 7.40 | EXTERNAL | | | Segmented | performed at [facility], [address] | K/uL | LAB | | | Neutrophils | [address], | | | | | | [place] [address] | | | | + + + + + + | Absolute | 0.59 (L)Comment: Testing | 1.00 - 3.90 | EXTERNAL | | | Lymphocytes | performed at [facility], [address] | K/uL | LAB | | | | [address], | | | | | | [place] [address] | | | | + + + + + + | Absolute | 0.43Comment: Testing | 0.00 - 0.80 | EXTERNAL | | | Monocytes | performed at [facility], [address] | K/uL | LAB | | | | [address], | | | | | | [place] [address] | | | | + + + + + + | Absolute | 1.25 (H)Comment: Testing | 0.00 - 0.50 | EXTERNAL | | | Eosinophils | performed at [facility], [address] | K/uL | LAB | | | | [address], | | | | | | [place] [address] | | | | + + + + + + | Absolute | 0.04Comment: Testing | 0.00 - 0.10 | EXTERNAL | | | Basophils | performed at [facility], [address] | K/uL | LAB | | | | [address], | | | | | | [place] [address] | | | | + + + [...] EXTERNAL | | | | performed at [facility], [address] | | LAB | | | | [address], | | | | | | [place] [address] | | | | + + + [...] | | | | | [place] [address] | | | | + + + + + + | K | 4.0Comment: Testing | 3.5 - 4.9 | EXTERNAL | | | | performed at [facility], [address] | mmol/L | LAB | | | | [address], | | | | | | [place] [address] | | | | + + + + + + | Cl | 102Comment: Testing | 99 - 109 mmol/L | EXTERNAL | | | | performed at [facility], [address] | | LAB | | | | [address], | | | | | | [place] [address] | | | | + + + + + + | CO2 | 20 (L)Comment: Testing | 23 - 32 mmol/L | EXTERNAL | | | | performed at [facility], [address] | | LAB | | | | [address], | | | | | | [place] [address] | | | | + + + + + + | Anion Gap | 22 (H)Comment: Testing | 5 - 20 mmol/L | EXTERNAL | | | | performed at [facility], [address] | | LAB | | | | [address], | | | | | | [place] [address] | | | | + + + + + + | Glucose, | 95Comment: Testing | 65 - 99 mg/dL | EXTERNAL | | | Fasting | performed at [facility], [address] | | LAB | | | | [address], | | | | | | [place] [address] | | | | + + + + + + | BUN | 104 (H)Comment: Testing | 8 - 25 mg/dL | EXTERNAL | | | | performed at [facility], [address] | | LAB | | | | [address], | | | | | | [place] [address] | | | | + + + + + + | Creatinine | 15.79 (H)Comment: | 0.50 - 1.00 | EXTERNAL | | | | Testing performed at | mg/dL | LAB | | | | [facility], [address] | | | | | | [place] | | | | | | [address] | | | | + + + + + + | Calcium | 6.4 (L)Comment: Testing | 8.5 - 10.5 | EXTERNAL | | | | performed at [facility], [address] | mg/dL | LAB | | | | [address], | | | | | | [place] [address] | | | | + + + + + + | Albumin | 3.0 (L)Comment: Testing | 3.6 - 5.0 g/dL | EXTERNAL | | | | performed at [facility], [address] | | LAB | | | | [address], | | | | | | [place] [address] | | | | + + + + + + | PHOSPHORUS | 10.5 (HH)Comment: RESULT | 2.3 - 4.8 mg/dL | EXTERNAL | | | | READ BACK BY:JIA | | LAB | | | | L/RN/OCT 28, | | | | | | :22[facility] | | [facility] | | performed at [facility], [address] | | | | | [address], | | | | | | [place] [address] | | | | + + + [...] W | | | | | | [facility], | | | | | | [place] [address] | | | | + + + [...] | | | | | [place] [address] | | | | + + + + + + | Folate | 4.0 (L)Comment: Testing | ng/mL | EXTERNAL | | | | performed at [facility], [address] | | LAB | | | | [address], | | | | | | [place] [address] | | | | + + + [...] [address], | | | | | | [place] [address] | | | | + + + [...] | | | | | [place] [address] | | | | + + + + + + | TIBC | 212 (L)Comment: Testing | 260 - 490 ug/dL | EXTERNAL | | | | performed at [facility], [address] | | LAB | | | | [address], | | | | | | [place] [address] | | | | + + + + + + | Iron | 12 (L)Comment: Testing | 15 - 50 % | EXTERNAL | | | Saturation | performed at [facility], [address] | | LAB | | | | [address], | | | | | | [place] [address] | | | | + + + [...] | | | | | [place] [address] | | | | + + + + + + | Red Blood | 3.00 (L)Comment: Testing | 3.70 - 5.10 | EXTERNAL | | | Cells | performed at [facility], [address] | M/uL | LAB | | | Counted | [address], | | | | | | [place] [address] | | | | + + + + + + | Hemoglobin | 8.1 (L)Comment: Testing | 11.3 - 15.5 | EXTERNAL | | | | performed at [facility], [address] | g/dL | LAB | | | | [address], | | | | | | [place] [address] | | | | + + + + + + | Hematocrit, | 25.5 (L)Comment: Testing | 34.0 - 46.0 % | EXTERNAL | | | POC | performed at [facility], [address] | | LAB | | | | [address], | | | | | | [place] [address] | | | | + + + + + + | MCV | 85.0Comment: Testing | 80.0 - 100.0 fl | EXTERNAL | | | | performed at [facility], [address] | | LAB | | | | [address], | | | | | | [place] [address] | | | | + + + + + + | MCH | 27.2Comment: Testing | 27.0 - 34.0 pg | EXTERNAL | | | | performed at [facility], [address] | | LAB | | | | [address], | | | | | | [place] [address] | | | | + + + + + + | MCHC | 31.9 (L)Comment: Testing | 32.0 - 35.5 | EXTERNAL | | | | performed at [facility], [address] | g/dL | LAB | | | | [address], | | | | | | [place] [address] | | | | + + + + + + | RDW-CV | 48.1Comment: Testing | 37 - 53 fl | EXTERNAL | | | | performed at [facility], [address] | | LAB | | | | [address], | | | | | | [place] [address] | | | | + + + + + + | Platelet | 195Comment: Testing | 150 - 400 K/uL | EXTERNAL | | | Count | performed at [facility], [address] | | LAB | | | Plasma | [address], | | | | | | [place] [address] | | | | + + + + + + | MPV | 9.5Comment: Testing | fl | EXTERNAL | | | | performed at [facility], [address] | | LAB | | | | [address], | | | | | | [place] [address] | | | | + + + + + + | Differentia | AUTOMATEDComment: | | EXTERNAL | | | l Type | Testing performed at | | LAB | | | | [facility], [address] | | | | | | [place] | | | | | | [address] | | | | + + + + + + | % Segmented | 76.55Comment: Testing | % | EXTERNAL | | | | performed at [facility], [address] | | LAB | | | Neutrophils | [address], | | | | | | [place] [address] | | | | + + + + + + | % | 8.35Comment: Testing | % | EXTERNAL | | | Lymphocytes | performed at [facility], [address] | | LAB | | | | [address], | | | | | | [place] [address] | | | | + + + [...] | | | | | [place] [address] | | | | + + + + + + | % Basophils | 0.61Comment: Testing | % | EXTERNAL | | | | performed at [facility], [address] | | LAB | | | [address], | | | | | | [place] [address] | | | | + + + + + + | Absolute | 6.60Comment: Testing | 1.90 - 7.40 | EXTERNAL | | | Segmented | performed at [facility], [address] | K/uL | LAB | | | Neutrophils | [address], | | | | | | [place] [address] | | | | + + + + + + | Absolute | 0.72 (L)Comment: Testing | 1.00 - 3.90 | EXTERNAL | | | Lymphocytes | performed at [facility], [address] | [address] | LAB | | | | [address], | | | | | | [place] [address] | | | | + + + + + + | Absolute | 0.40Comment: Testing | 0.00 - 0.80 | EXTERNAL | | | Monocytes | performed at [facility], [address] | K/uL | LAB | | | | [address], | | | | | | [place] [address] | | | | + + + + + + | Absolute | 0.85 (H)Comment: Testing | 0.00 - 0.50 | EXTERNAL | | | Eosinophils | performed at [facility], [address] | [address] | LAB | | | | [address], | | | | | | [place] [address] | | | | + + + + + + | Absolute | 0.05Comment: Testing | 0.00 - 0.10 | EXTERNAL | | | Basophils | performed at [facility], [address] | [address] | LAB | | | | [address], | | | | | | [place] [address] | | | | + + + [...] EXTERNAL | | | | performed at [facility], [address] | | LAB | | | | [address], | | | | | | [place] [address] | | | | + + + [...] | | | External | performed at [facility], [address] | | LAB | | | | [address], | | | | | | [place] [address] | | | | + + + [...] | | | (Calc) | performed at [facility];[address] | mmol/L | LAB | | | | [address];[place] | | | | | | [address] | | | | + + + + + + | pH, Bld | 7.338Comment: Testing | 7.300 - 7.450 | EXTERNAL | | | | performed at [facility];[address] | | LAB | | | | [address];[place] | | | | | | [address] | | | | + + + [...] | | | | | [place] [address] | | | | + + + + + + | K | 4.8Comment: Testing | 3.5 - 4.9 | EXTERNAL | | | | performed at [facility], [address] | mmol/L | LAB | | | | [address], | | | | | | [place] [address] | | | | + + + + + + | Cl | 106Comment: Testing | 99 - 109 mmol/L | EXTERNAL | | | | performed at [facility], [address] | | LAB | | | | [address], | | | | | | [place] [address] | | | | + + + + + + | CO2 | 15 (L)Comment: Testing | 23 - 32 mmol/L | EXTERNAL | | | | performed at [facility], [address] | | LAB | | | | [address], | | | | | | [place] [address] | | | | + + + + + + | Anion Gap | 23 (H)Comment: Testing | 5 - 20 mmol/L | EXTERNAL | | | | performed at [facility], [address] | | LAB | | | | [address], | | | | | | [place] [address] | | | | + + + + + + | Glucose, | 87Comment: Testing | 65 - 99 mg/dL | EXTERNAL | | | Fasting | performed at [facility], [address] | | LAB | | | | [address], | | | | | | [place] [address] | | | | + + + + + + | BUN | 109 (H)Comment: Testing | 8 - 25 mg/dL | EXTERNAL | | | | performed at [facility], [address] | | LAB | | | | [address], | | | | | | [place] [address] | | | | + + + + + + | Creatinine | 14.69 (H)Comment: | 0.50 - 1.00 | EXTERNAL | | | | Testing performed at | mg/dL | LAB | | | | [facility], [address] | | | | | | [place] | | | | | | [address] | | | | + + + + + + | Calcium | 6.6 (L)Comment: Testing | 8.5 - 10.5 | EXTERNAL | | | | performed at [facility], [address] | mg/dL | LAB | | | | [address], | | | | | | [place] [address] | | | | + + + + + + | Albumin | 3.2 (L)Comment: Testing | 3.6 - 5.0 g/dL | EXTERNAL | | | | performed at [facility], [address] | | LAB | | | | [address], | | | | | | [place] [address] | | | | + + + + + + | PHOSPHORUS | 10.6 (HH)Comment: RESULT | 2.3 - 4.8 mg/dL | EXTERNAL | | | | READ BACK BY: CHRISTINA | | LAB | | | | Angela @ MARY 7:20 10/27/15 | | | | | | DHTesting performed at | | | | | | [facility], [address] [facility] | | | | | | [place] | | | | | | [address] | | | | + + + [...] | | | | | | at [facility], [address] | | | | | | [facility] [address], | | | | | | [place] [address] | | | | + + + [...] EXTERNAL | | | | performed at [facility], [address] | | LAB | | | | [address], | | | | | | [place] [address] | | | | + + + + + + | RBC, UA | 50-100Comment: Testing | 0 - 5 /hpf | EXTERNAL | | | | performed at [facility], [address] | | LAB | | | [address], | | | | | | [place] [address] | | | | + + + + + + | Epithelial | 6-10Comment: Testing | /lpf | EXTERNAL | | | Cells | performed at [facility], [address] | | LAB | | | | [address], | | | | | | [place] [address] | | | | + + + + + + | Bacteria, | 2+ (A)Comment: Testing | | EXTERNAL | | | UA | performed at [facility], [address] | | LAB | | | | [address], | | | | | | [place] [address] | | | | + + + [...] EXTERNAL | | | | performed at [facility], [address] | | LAB | | | | [address], | | | | | | [place] [address] | | | | + + + + + + | Clarity | CLOUDYComment: Testing | | EXTERNAL | | | | performed at [facility], [address] | | LAB | | | | [address], | | | | | | [place] [address] | | | | + + + + + + | Specific | 1.012Comment: Testing | 1.002 - 1.030 | EXTERNAL | | | [place], | performed at [facility], [address] | | LAB | | | Urine | [address], | | | | | | [place] [address] | | | | + + + + + + | Leukocyte | SMALL (A)Comment: | | EXTERNAL | | | Esterase, | Testing performed at | | LAB | | | Urine | [facility], [address] [facility] | | | | | | [place] | | | | | | [address] | | | | + + + + + + | Nitrite, | NEGATIVEComment: Testing | | EXTERNAL | | | Urine | performed at [facility], [address] | | LAB | | | | [address], | | | | | | [place] [address] | | | | + + + + + + | Urobilinoge | 0.2Comment: Testing | mg/dL | EXTERNAL | | | n, Urine | performed at [facility], [address] | | LAB | | | | [address], | | | | | | [place] [address] | | | | + + + + + + | Protein, | 300 (A)Comment: Testing | mg/dL | EXTERNAL | | | Urine | performed at [facility], [address] | | LAB | | | | [address], | | | | | | [place] [address] | | | | + + + + + + | pH, Urine | 5.5Comment: Testing | 5.0 - 8.0 | EXTERNAL | | | | performed at [facility], [address] | | LAB | | | | [address], | | | | | | [place] [address] | | | | + + + + + + | Blood, | LARGE (A)Comment: | | EXTERNAL | | | Urine | Testing performed at | | LAB | | | | [facility], [address] | | | | | | [place] | | | | | | [address] | | | | + + + + + + | Ketones | NEGATIVEComment: Testing | mg/dL | EXTERNAL | | | | performed at [facility], [address] | | LAB | | | | [address], | | | | | | [place] [address] | | | | + + + + + + | Bilirubin, | NEGATIVEComment: Testing | | EXTERNAL | | | Urine | performed at [facility], [address] | | LAB | | | | [address], | | | | | | [place] [address] | | | | + + + + + + | Glucose, | NEGATIVEComment: Testing | mg/dL | EXTERNAL | | | Urine | performed at [facility], [address] | | LAB | | | | [address], | | | | | | [place] [address] | | | | + + + [...] EXTERNAL | | | | performed at [facility];888 | g/dL | LAB | | | | [address];[place] | | | | | | [address] | | | | + + + + + + | Hematocrit, | 25.1 (L)Comment: Testing | 34.0 - 46.0 % | EXTERNAL | | | POC | performed at [facility];[address] | | LAB | | | | [address];[place] | | | | | | [address] | | | | + + + [...] EXTERNAL | | | | performed at [facility];[address] | mmol/L | LAB | | | | [address];[place], [place] | | | | | | [address] | | | | + + + + + + | K | 4.5Comment: Testing | 3.5 - 4.9 | EXTERNAL | | | | performed at [facility];[address] | mmol/L | LAB | | | | [address];[place] | | | | | | [address] | | | | + + + + + + | Cl | 111 (H)Comment: Testing | 99 - 109 mmol/L | EXTERNAL | | | | performed at [facility];[address] | | LAB | | | | [address];[place] | | | | | | [address] | | | | + + + + + + | CO2 | 14 (LL)Comment: RESULT | 23 - 32 mmol/L | EXTERNAL | | | | READ BACK BY:MICHELLE GAGE | | LAB | | | | T/[place] ON 885732 | | | | | | @8309 NSTesting | | | | | | performed at [facility];[address] | | | | | | [address];[place] | | | | | | [address] | | | | + + + + + + | Anion Gap | 21 (H)Comment: Testing | 5 - 20 mmol/L | EXTERNAL | | | | performed at [facility];[address] | | LAB | | | | [address];[place] | | | | | | [address] | | | | + + + + + + | Glucose, | 96Comment: Testing | 65 - 99 mg/dL | EXTERNAL | | | Fasting | performed at [facility];[address] | | LAB | | | | [address];[place] | | | | | | [address] | | | | + + + + + + | BUN | 104 (H)Comment: Testing | 8 - 25 mg/dL | EXTERNAL | | | | performed at [facility];[address] | | LAB | | | | [address];[place] | | | | | | [address] | | | | + + + + + + | Creatinine | 16 (H)Comment: Testing | 0.50 - 1.00 | EXTERNAL | | | | performed at [facility];[address] | mg/dL | LAB | | | | [address];[place] | | | | | | [address] | | | | + + + + + + | BUN/Creatin | 7Comment: Testing | | EXTERNAL | | | ine Ratio | performed at [facility];[address] | | LAB | | | | [address];[place] | | | | | | [address] | | | | + + + + + + | Calcium | 6.0 (L)Comment: Testing | 8.5 - 10.5 | EXTERNAL | | | | performed at [facility];[address] | mg/dL | LAB | | | | [address];[place] | | | | | | [address] | | | | + + + [...] | | | | | | at [facility];[address];[place] [address] | | | | + + + [...] EXTERNAL | | | | performed at [facility], [address] | g/dL | LAB | | | | [address], | | | | | | [place] [address] | | | | + + + + + + | Hematocrit, | 25.3 (L)Comment: Testing | 34.0 - 46.0 % | EXTERNAL | | | POC | performed at [facility], [address] | | LAB | | | | [address], | | | | | | [place] [address] | | | | + + + [...] SEEN | | | Testing performed at [facility], [address] | | | [place] [address] | | + + + + +---------+ [...] Patient | | | positioning: Prone. Axial pen maker images were obtained through region | | [...] - 06/25/2019 11:42 AM PDT [facility] | | [id number]/26/2015 10:57 AM HISTORY:35 years. Female. Hematuria and severe acute kidney | | injury. COMPARISON:Renal ultrasound 10/25/2015.. DESCRIPTION OF PROCEDURE:Prior to | | beginning the procedure, I obtained written informed consent. A timeout was | | performed.Patient positioning: Prone.Axial pen maker images were obtained through region of | [...] ISOLATED. | | | Testing performed at [facility], [address] [place], [place] | | | [address] | | + + + + +---------+ [...] | | | Patient | performed at [facility] | | LAB | | | | [address];[place] | | | | | | [address] | | | | + + + [...] | | | | performed at [facility];[address] | | | | | | [facility];[place], [place] | | | | | | [address] | | | | + + + [...] | | | Count | performed at [facility];[address] | | LAB | | | Plasma | [address];[place] | | | | | | [address] | | | | + + + [...] [place] | | | | | | [address] | | | | + + + [...] + + + + + | Ig [place]roads | 29.00 (H)Comment: | 0.33 - 1.94 | EXTERNAL | | | Free Light | Testing performed at | mg/dL | LAB | | | Chain | [facility], [address] | | | | | | [place] | | | | | | [address] | | | | + + + + + + | kaplamflc | 18.70 (H)Comment: | 0.57 - 2.63 | EXTERNAL | | | | Testing performed at | mg/dL | LAB | | | | [facility], [address] | | | | | | [place] | | | | | | [address] | | | | + + + + + + | Abney Crossroads/Lambd | 1.55Comment: Testing | 0.26 - 1.65 | EXTERNAL | | | a Free | performed at [facility], [address] | | LAB | | | Light Chain | [address] [place] | | | | | Ratio | [place] [address] | | | | + + + + + + | Protein, | 6.1 (L)Comment: Testing | 6.2 - 8.2 g/dL | EXTERNAL | | | Total | performed at [facility], [address] | | LAB | | | | [place] | | | | | | [place] [address] | | | | + + + + + + | ELP Albumin | 2.7 (L)Comment: Testing | 3.5 - 5.0 g/dL | EXTERNAL | | | % | performed at [facility], [address] | | LAB | | | | [place] | | | | | | [place] [address] | | | | + + + + + + | ALPHA 1, BF | 0.4Comment: Testing | 0.1 - 0.4 g/dL | EXTERNAL | | | | performed at [facility], [address] | | LAB | | | | [place] | | | | | | [place] [address] | | | | + + + + + + | ALPHA 2 | 0.9Comment: Testing | 0.5 - 1.1 g/dL | EXTERNAL | | | GLOBULIN | performed at [facility], [address] | | LAB | | | | [place] | | | | | | [place] [address] | | | | + + + + + + | Beta-1 | 0.4Comment: Testing | 0.4 - 0.8 g/dL | EXTERNAL | | | | performed at [facility], [address] | | LAB | | | | [place] | | | | | | [place] [address] | | | | + + + + + + | BETA 2, BF | 0.3Comment: Testing | 0.2 - 0.6 g/dL | EXTERNAL | | | | performed at [facility], [address] | | LAB | | | | [place] | | | | | | [place] [address] | | | | + + + + + + | GAMMA, BF | 1.3Comment: Testing | 0.6 - 1.5 g/dL | EXTERNAL | | | | performed at [facility], [address] | | LAB | | | | [place] | | | | | | [place] [address] | | | | + + + + + + | Albumin | 44.9 (L)Comment: Testing | 45.0 - 80.0 % | EXTERNAL | | | | performed at [facility], [address] | | LAB | | | | [address] [place] | | | | | | [place] [address] | | | | + + + + + + | ALPHA 1, BF | 5.8Comment: Testing | 1.0 - 6.0 % | EXTERNAL | | | | performed at [facility], [address] | | LAB | | | | [place] | | | | | | [place] [address] | | | | + + + + + + | Alpha 2 % | 15.2Comment: Testing | 6.0 - 17.0 % | EXTERNAL | | | | performed at [facility], [address] | | LAB | | | | [place] | | | | | | [place] [address] | | | | + + + + + + | Beta-1 % | 7.0Comment: Testing | 5.0 - 13.0 % | EXTERNAL | | | | performed at [facility], [address] | | LAB | | | | [place] | | | | | | [place] [address] | | | | + + + + + + | Beta-2 % | 5.5Comment: Testing | 2.0 - 8.5 % | EXTERNAL | | | | performed at [facility], [address] | | LAB | | | | [place] | | | | | | [place] [address] | | | | + + + + + + | GAMMA, BF | 21.6Comment: Testing | 7.5 - 24.0 % | EXTERNAL | | | | performed at [facility], [address] | | LAB | | | | [place] | | | | | | [place] [address] | | | | + + + + + + | ELP | HYPOALBUMINEMIA.Comment: | | EXTERNAL | | | INTERPRETAT | INTERPRETED BY | | LAB | | | ION | JSCTesting performed at | | | | | | [facility], [address] | | | | | | [place] | | | | | | [address] | | | | + + + [...] [place] | | | | | | [address] | | | | + + + [...] +---------+ + + Hepatitis A, B, C bOdulio Hodges (10/26/2015 5:26 AM PST) + + [...] [place] | | | | | | [address] | | | | + + + + + + | HEP B | NON REACTIVEComment: | | EXTERNAL | | | SURFACE | Testing performed at | | LAB | | | ANTIBODY | [facility], [address] | | | | | | [place] | | | | | | [address] | | | | + + + + + + | Hepatitis B | NON REACTIVEComment: | | EXTERNAL | | | Core Ab | Testing performed at | | LAB | | | Total | [facility], [address] | | | | | | [place] | | | | | | [address] | | | | + + + + + + | HCV Ab | NON REACTIVEComment: | | EXTERNAL | | | | Testing performed at | | LAB | | | | [facility], [address] | | | | | | [place] | | | | | | [address] | | | | + + + [...] | | | | | performed at [facility], [address] | | | | | | [facility], | | | | | | [place] [address] | | | | + + + [...] | | | | | [place] [address] | | | | + + + + + + | Complement | 24.0Comment: Testing | 10 - 40 mg/dL | EXTERNAL | | | Comp 4 | performed at [facility], [address] | | LAB | | | | [employer], | | | | | | [place] [address] | | | | + + + [...] | | LAB | | | | [facility];[address] | | | | | | [address];[place] [address] | | | | + + + [...] | | | | | - 20 [id number] - 30 | | | | | [...] THE | | | | | | [employer] LITE GBM | | | | | [...] [place] | | | | | | [address] | | | | + + + [...] | | | | | | [place] [address] | | | | + + + + + + | CRYOGLOBULI | NEGATIVEComment: Testing | | EXTERNAL | | | N 48H | performed at [facility], [address] | | LAB | | | | [place] | | | | | | [place] [address] | | | | + + + + + + | CRYOGLOBULI | NEGATIVEComment: Testing | | EXTERNAL | | | N 72H | performed at [facility], [address] | | LAB | | | | [address] [place] | | | | | | [place] [address] | | | | + + + + + + | CRYOGLOBULI | NEGATIVEComment: Testing | | EXTERNAL | | | N 7D | performed at [facility], [address] | | LAB | | | | [facility] | | | | | | [place] [address] | | | | + + + [...] [place] | | | | | | [address] | | | | + + + [...] | | | Streptolysi | performed at [facility], [address] | | LAB | | | n O | [address], | | | | | | [place] [address] | | | | + + + [...] | | | | | | P,CHROMATIN, JR. JAVA DEVELOPER, SM | | | | | | JR. JAVA DEVELOPER, SCL-70, CENTROMERE | | | | | | B, SSA, SSB AND ALAINA-1) | | | | | | WASPERFORMED AND NO | | | | | | AUTOANTIBODIES WERE | | | | | | DETECTED.Testing | | | | | | performed at [facility], [address] | | | | | | [place] | | | | | | [place] [address] | | | | + + + + + + | ANCA Screen | <1:20Comment: REFERENCE | | EXTERNAL | | | | RANGE: <1:20Testing | | LAB | | | | performed at [facility], [address] | | | | | | [place] | | | | | | [place] [address] | | | | + + + [...] | | | | sting performed at [facility], | | | | | | [address] [place], | | | | | | [place] [address] | | | | + + + [...] | | | | | | at [facility], [address] | | | | | | [place], [place] | | | | | | [address] | | | | + + + [...] | | | Patient | performed at [facility];[address] | | LAB | | | | [address];[place] | | | | | | [address] | | | | + + + [...] EXTERNAL | | | | performed at [facility], [address] | | LAB | | | | [address], | | | | | | [place] [address] | | | | + + + [...] | | | | performed at [facility];[address] | | | | | | [address];[place], [place] | | | | | | [address] | | | | + + + [...] EXTERNAL | | | | performed at [facility], [address] | K/u L | LAB | | | | [address], | | | | | | [place] [address] | | | | + + +---- + + + | Red Blood | 2.21 (L)Comment: Testing | 3.7 0 - 5.10 | EXTERNAL | | | Cells | performed at [facility], [address] | M/u L | LAB | | | Counted | [address], | | | | | | [place] [address] | | | | + + +---- + + + | Hemoglobin | 5.7 (LL)Comment: RESULT | 11. 3 - 15.5 | EXTERNAL | | | | READ BACK BY: HUMERA MARTINEZ | g/d L | LAB | | | | AT 0648 ON 10/26/2015 | | | | | | SURG TH Testing | | | | | | performed at [facility], [address] | | | | | | [address], | | | | | | [place] [address] | | | | + + +---- + + + | Hematocrit, | 18.2 (LL)Comment: RESULT | 34. 0 - 46.0 % | EXTERNAL | | | POC | READ BACK BY: HUMERA Sutherland | ROLANDO | | | | MICHELLE AT 0648 ON 10/26/2015 | | | | | | SURG TH Testing | | | | | | performed at [facility], [address] | | | | | | [address], | | | | | | [place] [address] | | | | + + +---- + + + | MCV | 82.5Comment: Testing | 80. 0 - 100.0 fl | EXTERNAL | | | | performed at [facility], [address] | | LAB | | | | [address], | | | | | | [place] [address] | | | | + + +---- + + + | MCH | 25.7 (L)Comment: Testing | 27. 0 - 34.0 pg | EXTERNAL | | | | performed at [facility], [address] | | LAB | | | | [address], | | | | | | [place] [address] | | | | + + +---- + + + | MCHC | 31.1 (L)Comment: Testing | 32. 0 - 35.5 | EXTERNAL | | | | performed at [facility], [address] | g/d L | LAB | | | | [address], | | | | | | [place] [address] | | | | + + +---- + + + | RDW-CV | 46.4Comment: Testing | 37 - 53 fl | EXTERNAL | | | | performed at [facility], [address] | | LAB | | | | [address], | | | | | | [place] [address] | | | | + + +---- + + + | Platelet | 222Comment: Testing | 150 - 400 K/uL | EXTERNAL | | | Count | performed at [facility], [address] | | LAB | | | Plasma | [address], | | | | | | [place] [address] | | | | + + +---- + + + | MPV | 9.6Comment: Testing | fl | EXTERNAL | | | | performed at [facility], [address] | | LAB | | | | [address], | | | | | | [place] [address] | | | | + + +---- + + + | Differentia | MANUALComment: Testing | | EXTERNAL | | | l Type | performed at [facility], [address] | | LAB | | | | [address], | | | | | | [place] [address] | | | | + + +---- + + + | Segmented | 86Comment: Testing | % | EXTERNAL | | | Neutrophils | performed at [facility], [address] | | LAB | | | Manual | [address], | | | | | | [place] [address] | | | | + + +---- + + + | Lymphocytes | 9Comment: Testing | % | EXTERNAL | | | Manual | performed at [facility], [address] | | LAB | | | | [address], | | | | | | [place] [address] | | | | + + +---- + + + | Monocytes | 4Comment: Testing | % | EXTERNAL | | | Manual | performed at [facility], [address] | | LAB | | | | [address], | | | | | | [place] [address] | | | | + + +---- + + + | Eosinophils | 1Comment: Testing | % | EXTERNAL | | | Manual | performed at [facility], [address] | | LAB | | | | [address], | | | | | | [place] [address] | | | | + + +---- + + + | Absolute | 7.84 (H)Comment: Testing | 1.9 0 - 7.40 | EXTERNAL | | | Neutrophils | performed at [facility], [address] | [address] | LAB | | | | [address], | | | | | | [place] [address] | | | | + + +---- + + + | Absolute | 0.82 (L)Comment: Testing | 1.0 0 - 3.90 | EXTERNAL | | | Lymphocytes | performed at [facility], [address] | [address] | LAB | | | | [address], | | | | | | [place] [address] | | | | + + +---- + + + | Absolute | 0.36Comment: Testing | 0.0 0 - 0.80 | EXTERNAL | | | Monocytes | performed at [facility], [address] | K/u L | LAB | | | | [address], | | | | | | [place] [address] | | | | + + +---- + + + | Absolute | 0.09Comment: Testing | 0.0 0 - 0.50 | EXTERNAL | | | Eosinophils | performed at [facility], [address] | K/u L | LAB | | | | [address], | | | | | | [place] [address] | | | | + + +---- + + + | RBC | 1+Comment: | | EXTERNAL | | | Morphology | ANISO1+HYPO1+OVALONORMAL | | LAB | | | | PLT MORPHTesting | | | | | | performed at [facility], [address] | | | | | | [facility], | | | | | | [place] [address] | | | | | |OVALO | | | | | |NORMAL PLT MORPH | | | | | |Testing performed at [facility], [address] [facility], [place] [address] | | | | | | | [...] + + | Hemoglobin | 5.1Comment: [employer] [place] | 4.0 - 6.0 % | EXTERNAL [...] | | | | | performed at [facility], [address] | | | | | [address], | | | | | | [place] [address] | | | | + + + [...] | | | | | performed at [facility], [address] | | | | | | [facility], | | | | | | [place] [address] | | | | + + + [...] EXTERNAL | | | | performed at [facility] | | LAB | | | | [address];[place], [place] | | | | | | [address] | | | | + + + [...] | | | | | [place] [address] | | | | + + + + + + | Triglycerid | 137Comment: Testing | mg/dL | EXTERNAL | | | es | performed at [facility], [address] | | LAB | | | | [address], | | | | | | [place] [address] | | | | + + + + + + | HDL | 36 (L)Comment: Testing | mg/dL | EXTERNAL | | | | performed at [facility], [address] | | LAB | | | | [address], | | | | | | [place] [address] | | | | + + + [...] EXTERNAL | | | | performed at [facility], [address] | mmol/L | LAB | | | | [address], | | | | | | [place] [address] | | | | + + + + + + | K | 4.7Comment: Testing | 3.5 - 4.9 | EXTERNAL | | | | performed at [facility], [address] | mmol/L | LAB | | | | [address], | | | | | | [place] [address] | | | | + + + + + + | Cl | 109Comment: Testing | 99 - 109 mmol/L | EXTERNAL | | | | performed at [facility], [address] | | LAB | | | | [address], | | | | | | [place] [address] | | | | + + + [...] [place] | | | | | | [address] | | | | + + + + + + | Anion Gap | 22 (H)Comment: Testing | 5 - 20 mmol/L | EXTERNAL | | | | performed at [facility], [address] | | LAB | | | | [address], | | | | | | [place] [address] | | | | + + + + + + | Glucose, | 90Comment: Testing | 65 - 99 mg/dL | EXTERNAL | | | Fasting | performed at [facility], [address] | | LAB | | | | [address], | | | | | | [place] [address] | | | | + + + + + + | BUN | 103 (H)Comment: Testing | 8 - 25 mg/dL | EXTERNAL | | | | performed at [facility], [address] | | LAB | | | | [address], | | | | | | [place] [address] | | | | + + + + + + | Creatinine | 15.48 (H)Comment: | 0.50 - 1.00 | EXTERNAL | | | | Testing performed at | mg/dL | LAB | | | | [facility], [address] | | | | | | [place] | | | | | | [address] | | | | + + + + + + | BUN/Creatin | 7Comment: Testing | | EXTERNAL | | | ine Ratio | performed at [facility], [address] | | LAB | | | | [address], | | | | | | [place] [address] | | | | + + + + + + | Calcium | 6.9 (L)Comment: Testing | 8.5 - 10.5 | EXTERNAL | | | | performed at [facility], [address] | mg/dL | LAB | | | | [address], | | | | | | [place] [address] | | | | + + + [...] | | | | | | at [facility], [address] | | | | | | [address], | | | | | | [place] [address] | | | | + + + [...] B: | | | | | | OrderGroove/CSTesting | | | | | | performed at [facility], [address] | | | | | | [address] | | | | | | [facility] [address] | | | | + + + [...] | | | Nitrogen, | performed at [facility], [address] | | LAB | | | Urine | [address], | | | | | | [place] [address] | | | | + + + [...] LAB | | | | performed at [facility], [address] | | | | | | [address] [facility], | | | | | | [place] [address] | | | | + + + [...] | | | Urine | performed at [facility], [address] | | LAB | | | Random | [address], | | | | | | [place] [address] | | | | + + + [...] at | | | | | | [facility];[address] | [address];[place] [address] | | | | + + + [...] | | | Urine | performed at [facility], [address] | | LAB | | | | [address], | | | | | | [place] [address] | | | | + + + [...] seen and | | | processed at [facility] in [place], [place]. | | | (Report # [id number]). GROSS DESCRIPTION: The specimen is received in | | | formalin labeled with the patient's name and designated "Kidney | | | biopsy. SENT TO [place]." The kidney biopsy was performed by | [...] | | | Very few [facility] GROSS DESCRIPTION: Three | | | specimens are received, each labeled and designated "Goatsen, kidney | | | minto". Specimen received in formalin consists of three [...] preparation was | | | performed by [facility], [facility], [facility] | | | [place] [address] (Director Of Mobile Marketing: Jose C | | | Bianka Weir; [facility]#: [id number]). COMMENT: Ultrastructural | | | examination is [...] PDT RAMONA MUSA KIDNEYS AND | | [id number]/25/2015 6:17 PM History: 35 years. Female. Acute [...] HAND | | | Testing performed at [facility];[address] | | [address];[place] [address] CULTURE | | | NO GROWTH 6 DAYS | | | Testing performed at [facility], [address], [place], [place] | | | [address] | | + + + + +---------+ [...] AC | | | Testing performed at [facility];[address] [facility] | | | [address]vd;[place] [address] CULTURE | | | NO GROWTH 6 DAYS | | | Testing performed at [facility], [address] [facility], [place], [place] | | | [address] | | + + + + +---------+ [...] + + + | BB BAND | [id number] | | EXTERNAL | | | | | | LAB | | + + + + + + | UNIT NUMBER | [id number] | | EXTERNAL | | | | [...] + + + | UNIT NUMBER | [id number] | | EXTERNAL | | | | | | LAB | | + + + + + + | UNIT NUMBER | Testing performed at | | EXTERNAL | | | | [facility];[address] | | LAB | | | | [address];[place] [address] | | | | + + + + + + | Product | LEUKODEPLETED PCTesting | | EXTERNAL | | | Code | performed at [facility];[address] | | LAB | | | | [address];[place] | | | | | | [address] | | | | + + + + + + | Unit | 00Testing performed at | | EXTERNAL | | | Division | [facility];[address] | | LAB | | | | [address];[place] [address] | | | | + + + + + + | Unit Status | ISSUED,FINALTesting | | EXTERNAL | | | | performed at [facility];[address] | | LAB | | | | [address];[place] | | | | | | [address] | | | | + + + + + + | Transfusion | OK TO TRANSFUSETesting | | EXTERNAL | | | Status | performed at [facility];[address] | | LAB | | | | [address];[place] | | | | | | [address] | | | | + + + + + + | CROSSMATCH | COMPATIBLETesting | | EXTERNAL | | | RESULT | performed at [facility];[address] | | LAB | | | | [address];[place] | | | | | | [address] | | | | + + + [...] | | | Patient | performed at [facility];[address] | | LAB | | | | [address];[place] | | | | | | [address] | | | | + + + [...] | | | | performed at [facility] | | | | | | [address];[place], [place] | | | | | | [address] | | | | + + + [...] K/uL | LAB | | | | [facility];[address] | | | [address];[place] [address] | | | | + + + + + + | Red Blood | 2.69 (L)Comment: Testing | 3.70 - 5.10 | EXTERNAL | | | Cells | performed at [facility];[address] | M/uL | LAB | | | Counted | [address];[place] | | | | | | [address] | | | | + + + + + + | Hemoglobin | 6.7 (LL)Comment: CALLED | 11.3 - 15.5 | EXTERNAL | | | | PHYSICIANREAD BACK | g/dL | LAB | | | | RESULTS VERIFIEDDR LATER | | | | | | AT 1447 JGRTesting | | | | | | performed at [facility];[address] | | | | | | [address];[place] | | | | | | [address] | | | | + + + + + + | Hematocrit, | 22.3 (L)Comment: Testing | 34.0 - 46.0 % | EXTERNAL | | | POC | performed at [facility];[address] | | LAB | | | | [address];[place] | | | | | | [address] | | | | + + + + + + | MCV | 82.9Comment: Testing | 80.0 - 100.0 fl | EXTERNAL | | | | performed at [facility];[address] | | LAB | | | | [address];[place] | | | | | | [address] | | | | + + + + + + | MCH | 25.0 (L)Comment: Testing | 27.0 - 34.0 pg | EXTERNAL | | | | performed at [facility];[address] | | LAB | | | | [address];[place] | | | | | | [address] | | | | + + + + + + | MCHC | 30.2 (L)Comment: Testing | 32.0 - 35.5 | EXTERNAL | | | | performed at [facility];[address] | g/dL | LAB | | | | [address];[place] | | | | | | [address] | | | | + + + + + + | RDW-CV | 44.6Comment: Testing | 37 - 53 fl | EXTERNAL | | | | performed at [facility];[address] | | LAB | | | | [address];[place] | | | | | | [address] | | | | + + + + + + | Platelet | 253Comment: Testing | 150 - 400 K/uL | EXTERNAL | | | Count | performed at [facility];[address] | | LAB | | | Plasma | [address];[place] | | | | | | [address] | | | | + + + + + + | MPV | 9.0Comment: Testing | fl | EXTERNAL | | | | performed at [facility];[address] | | LAB | | | | [address];[place] | | | | | | [address] | | | | + + + + + + | Differentia | MANUALComment: Testing | | EXTERNAL | | | l Type | performed at [facility];[address] | | LAB | | | | [address];[place] | | | | | | [address] | | | | + + + + + + | Segmented | 96Comment: Testing | % | EXTERNAL | | | Neutrophils | performed at [facility];[address] | | LAB | | | Manual | [address];[place] | | | | | | [address] | | | | + + + + + + | Lymphocytes | 4Comment: Testing | % | EXTERNAL | | | Manual | performed at [facility];[address] | | LAB | | | | [address];[place] | | | | | | [address] | | | | + + + + + + | Absolute | 10.96 (H)Comment: | 1.90 - 7.40 | EXTERNAL | | | Neutrophils | Testing performed at | K/uL | LAB | | | | [facility];[address] | [address];[place] [address] | | | | + + + + + + | Absolute | 0.46 (L)Comment: Testing | 1.00 - 3.90 | EXTERNAL | | | Lymphocytes | performed at [facility];[address] | K/uL | LAB | | | | [address];[place] | | | | | | [address] | | | | + + + + + + | Platelet | ADEQUATEComment: Testing | | EXTERNAL | | | Estimate | performed at [facility];[address] | | LAB | | | | [address];[place] | | | | | | [address] | | | | + + + + + + | RBC | 2+Comment: | | EXTERNAL | | | Morphology | HYPO1+PLATELET | | LAB | | | | ANISOCYTOSISTesting | | | | | | performed at [facility];[address] | | | | | | [address];[place] | | | | | | [address] | | | | | | | [...] EXTERNAL | | | | performed at [facility];[address] | mmol/L | LAB | | | | [address];[place] | | | | | | [address] | | | | + + + + + + | K | 4.8Comment: Testing | 3.5 - 4.9 | EXTERNAL | | | | performed at [facility];[address] | mmol/L | LAB | | | | [address];[place] | | | | | | [address] | | | | + + + + + + | Cl | 106Comment: Testing | 99 - 109 mmol/L | EXTERNAL | | | | performed at [facility];[address] | | LAB | | | | [address];[place] | | | | | | [address] | | | | + + + + + + | CO2 | 16 (L)Comment: Testing | 23 - 32 mmol/L | EXTERNAL | | | | performed at [facility];[address] | | LAB | | | | [address];[place] | | | | | | [address] | | | | + + + + + + | Anion Gap | 20Comment: Testing | 5 - 20 mmol/L | EXTERNAL | | | | performed at [facility];[address] | | LAB | | | | [address];[place] | | | | | | [address] | | | | + + + + + + | Glucose, | 150 (H)Comment: Testing | 65 - 99 mg/dL | EXTERNAL | | | Fasting | performed at [facility];[address] | | LAB | | | | [address];[place] | | | | | | [address] | | | | + + + + + + | BUN | 99 (H)Comment: Testing | 8 - 25 mg/dL | EXTERNAL | | | | performed at [facility];[address] | | LAB | | | | [address];[place] | | | | | | [address] | | | | + + + + + + | Creatinine | 17 (H)Comment: Testing | 0.50 - 1.00 | EXTERNAL | | | | performed at [facility];[address] | mg/dL | LAB | | | | [address];[place] | | | | | | [address] | | | | + + + + + + | BUN/Creatin | 6Comment: Testing | | EXTERNAL | | | ine Ratio | performed at [facility];[address] | | LAB | | | | [address];[place] | | | | | | [address] | | | | + + + + + + | Calcium | 6.9 (L)Comment: Testing | 8.5 - 10.5 | EXTERNAL | | | | performed at [facility];[address] | mg/dL | LAB | | | | [address];[place] | | | | | | [address] | | | | + + + + + + | Protein, | 7.9Comment: Testing | 6.3 - 8.2 g/dL | EXTERNAL | | | Total | performed at [facility];[address] | | LAB | | | | [address];[place] | | | | | | [address] | | | | + + + + + + | Albumin | 3.3 (L)Comment: Testing | 3.6 - 5.0 g/dL | EXTERNAL | | | | performed at [facility];[address] | | LAB | | | | [address];[place] | | | | | | [address] | | | | + + + + + + | Globulin | 4.6Comment: Testing | 1.3 - 4.9 g/dL | EXTERNAL | | | | performed at [facility];[address] | | LAB | | | | [address];[place] | | | | | | [address] | | | | + + + + + + | A/G Ratio | 0.7 (L)Comment: Testing | 1.0 - 2.4 | EXTERNAL | | | | performed at [facility];[address] | | LAB | | | | [address];[place] | | | | | | [address] | | | | + + + + + + | Bilirubin | 0.3Comment: Testing | 0.1 - 1.5 mg/dL | EXTERNAL | | | Total | performed at [facility];[address] | | LAB | | | | [address];[place] | | | | | | [address] | | | | + + + + + + | ALP, | 76Comment: Testing | 35 - 115 U/L | EXTERNAL | | | External | performed at [facility];[address] | | LAB | | | | [address];[place] | | | | | | [address] | | | | + + + + + + | AST | 11Comment: Testing | 10 - 45 U/L | EXTERNAL | | | | performed at [facility];[address] | | LAB | | | | [address];[place] | | | | | | [address] | | | | + + + + + + | ALT | 15Comment: Testing | 10 - 65 U/L | EXTERNAL | | | | performed at [facility];[address] | | LAB | | | | [address];[place] | | | | | | [address] | | | | + + + [...] | | | | | | at [facility];[address] [place] [address] | | | | | | [facility];[place] [address] | | | | + + + [...] EXTERNAL | | | | performed at [facility];[address] | | LAB | | | | [address];[place] | | | | | | [address] | | | | + + + + + + | Clarity | HAZYComment: Testing | | EXTERNAL | | | | performed at [facility];[address] | | LAB | | | | [address];[place] | | | | | | [address] | | | | + + + + + + | Specific | 1.011Comment: Testing | 1.002 - 1.030 | EXTERNAL | | | [place], | performed at [facility];[address] | | LAB | | | Urine | [address];[place] | | | | | | [address] | | | | + + + + + + | Leukocyte | TRACE (A)Comment: | | EXTERNAL | | | Esterase, | Testing performed at | | LAB | | | Urine | [facility];[address] | [address];[place] [address] | | | | + + + + + + | Nitrite, | NEGATIVEComment: Testing | | EXTERNAL | | | Urine | performed at [facility];[address] | | LAB | | | | [address];[place] | | | | | | [address] | | | | + + + + + + | Urobilinoge | NORMALComment: Testing | mg/dL | EXTERNAL | | | n, Urine | performed at [facility];[address] | | LAB | | | | [address];[place] | | | | | | [address] | | | | + + + + + + | Protein, | 100 (A)Comment: Testing | mg/dL | EXTERNAL | | | Urine | performed at [facility];[address] | | LAB | | | | [address];[place] | | | | | | [address] | | | | + + + + + + | pH, Urine | 5.0Comment: Testing | 5.0 - 8.0 | EXTERNAL | | | | performed at [facility];[address] | | LAB | | | | [address];[place] | | | | | | [address] | | | | + + + + + + | Blood, | LARGE (A)Comment: | | EXTERNAL | | | Urine | Testing performed at | | LAB | | | | [facility];[address] | | | | | | [address];[place] [address] | | | | + + + + + + | Ketones | NEGATIVEComment: Testing | mg/dL | EXTERNAL | | | | performed at [facility];[address] | | LAB | | | | [address];[place] | | | | | | [address] | | | | + + + + + + | Bilirubin, | NEGATIVEComment: Testing | | EXTERNAL | | | Urine | performed at [facility];[address] | | LAB | | | | [address];[place] | | | | | | [address] | | | | + + + + + + | Glucose, | 50 (A)Comment: Testing | mg/dL | EXTERNAL | | | Urine | performed at [facility];[address] | | LAB | | | | [address];[place] | | | | | | [address] | | | | + + + + + + | WBC, UA | 26-49Comment: Testing | 0 - 5 /hpf | EXTERNAL | | | | performed at [facility];[address] | | LAB | | | | [address];[place] | | | | | | [address] | | | | + + + + + + | RBC, UA | >100Comment: Testing | 0 - 5 /hpf | EXTERNAL | | | | performed at [facility];[address] | | LAB | | | | [address];[place] | | | | | | [address] | | | | + + + + + + | Bacteria, | 4+ (A)Comment: Testing | | EXTERNAL | | | UA | performed at [facility];[address] | | LAB | | | | [address];[place] | | | | | | [address] | | | | + + + + + + | Epithelial | 16-25Comment: Testing | /lpf | EXTERNAL | | | Cells | performed at [facility];[address] | | LAB | | | | [address];[place] | | | | | | [address] | | | | + + + + + + | Mucus, | 1+Comment: Testing | | EXTERNAL | | | Urine | performed at [facility];[address] | | LAB | | | | [address];[place] | | | | | | [address] | | | | + + + + + + | AMORPHOUS | 1+Comment: Testing | | EXTERNAL | | | CRYSTAL | performed at [facility];[address] | | LAB | | | | [address];[place] | | | | | | [address] | | | | + + + [...] PNEUMONIAEAbnormal | | | Testing performed at [facility], [address] [place], [place] | | | [address] Suscepibility for - KLEBSIELLA PNEUMONIAE Ampicillin | [...]
--- OUTSIDE RECORDS SUMMARY | ~2020-04-05 | XMS | Encounter Summary ---
Demographics + + + | Address | [address] | | | [place] [address] | + + + | Home Phone [...] [place], [place] | | | | | [address] | | + + + + + | Lydia Palm | ECON | [place], [place] | | | | | [address] | | + + + + + | melinda METZ" | ECON | [place], [place] | | | [place] | | [address] | | + + + + + | Jose C Oconnor | ECON | [place] | | | | | [place] | | | | | [address] | | + + + + + Care Team Providers + +------+ + | Care Petroleum Refinery Operator Name | Role | Phone | + +------+ + | Juan F Whitley DO | PCP | | + +------+ + Encounter Details +--------+ + + + + | Date | Type | Department | Care Team | Description | +--------+ + + + + | 03/09/ | Hospital | [facility] | Conversion | | | 2019 | Encounter | [facility] | Transaction, | | | | | CLINIC [address] | Provider Unknown | | | | | [place], [place] | [phone] | | | | | [address] | | | | | | [phone] | | | +--------+ + + + [...] NEGATIVE Testing | | | performed at [facility];[address] [place] [address];[place] [address] | | + + + + +---------+ + + | Performing | Address | City/State/Zipcode | Phone Number | | Organization | | | | + +---------+ + + | EXTERNAL LAB | | | | + +---------+ + + documented in this encounter Visit Diagnoses Not on filedocumented in this encounter
--- OUTSIDE RECORDS SUMMARY | ~2020-04-05 | XMS | Encounter Summary ---
Demographics + + + | Address | [address] | | | [place] [address] | + + + | Home Phone | | + + + | Preferred Language | Unknown | + + + | Marital Status | | + + + | Buddhist Affiliation | Unknown | + + + | Race | Unknown | + + + | Ethnic Group | Unknown | + + + Author + + + | Author | [facility] | | | and [place] | + + + | Organization | [facility] [...] [place], [place] | | | | | [address] | | + + + + + | Lydia Palm | ECON | [place], [place] | | | | | [address] | | + + + + + | melinda METZ" | ECON | [place], [place] | | | [place] | | [address] | | + + + + + | Jose C Oconnor | ECON | [place] | | | | | [place] | | | | | [address] | | + + + + + Care Team Providers + +------+ + | Care Life Insurance Salesperson Name | Role | Phone | + +------+ + | Unknown, Physician | PCP | | + +------+ + Reason for Visit + + + | Reason | Comments | + + + | Procedure | infomration | + + + Encounter Details +--------+ + + + + | Date | Type | Department | Care Team | Description | +--------+ + + + + | 12/14/ | Telephone | [facility] | Qasim Pederson MD | Procedure | | 2020 | | VASCULAR SURGERY | [address] | (infomration) | | | | [address] | [address] | | | | | [place], [place] | [address] | | | | | [address] | | | | | | [phone] | | | +--------+ + + + [...]
--- OUTSIDE RECORDS SUMMARY | ~2020-04-05 | XMS | Encounter Summary ---
Demographics + + + | Address | [address] | | | [place] [address] | + + + | Home Phone [...] [place], [place] | | | | | [address] | | + + + + + | Lydia Palm | ECON | [place], [place] | | | | | [address] | | + + + + + | melinda METZ" | ECON | [place], [place] | | | [place] | | [address] | | + + + + + | Jose C Oconnor | ECON | [place] | | | | | [place] | | | | | [address] | | + + + + + Care Team Providers + +------+ + | Care Foreign Diplomat Name | Role | Phone | + +------+ + PCP | Unavailable | + +------+ + Encounter Details +--------+ + + + + | Date | Type | Department | Care Team | Description | +--------+ + + + + | 10/26/ | Hospital | [facility] | Santos Chi MD | | | 2014 | Encounter | [facility] | [address] [facility] | | | | | SPECIMEN PROCESS | [address] [place], [place] | | | | | [address] | [address] | | | | | [place] | | | | | | [address] | Cesar Gatica MD | | | | | [phone] | [address] [facility] | | | | | | [place] [address] | | | | | | [phone] | | | | | | | [...] Completed: 10/29/2015 Physician: SANTOS CHI Copy | [facility] | | to: Ami Chavez MD DIAGNOSIS: [...] received; each labeled and designated "Goatsen, kidney inupiat". | | | Specimen received in formalin [...] are not | | | performed. A: 41046, 57270(9), 71386, [address], | | | 108[address], [address]98[address], 19308(9) <CR>, 15225(d), 38325(d) <CR>, 14965(d), | | | 93359(d) <CR> PROCEDURES/ADDENDA | | | ELECTRON MICROSCOPY [...] | Adonay Jung MD Testing performed at: [place] | | | [facility] Vance Dewitt M.D., | | | Director [address] [place] [address] Ave [address] [place] [address] Phone: | | | | | + + + + + + + + | Performing | Address | City/State[facility] | Phone Number | | Organization | | | | + + + + + | [facility] | [address] | [place] [address] | | | [facility] | | | | | LABORATORY | | | | + + + + + documented in this encounter Visit Diagnoses Not on filedocumented in this encounter
--- OUTSIDE RECORDS SUMMARY | ~2020-04-05 | XMS | Encounter Summary ---
Demographics + + + | Address | [address] | | | [place] [address] | + + + | Home Phone [...] [place], [place] | | | | | [address] | | + + + + + | Lydia Palm | ECON | [place], [place] | | | | | [address] | | + + + + + | melinda METZ" | ECON | [place], [place] | | | [place]ba | | [address] | | + + + + + | Jose C Reeves | ECON | [address] | | | | | [place] | | | | | [address] | | + + + + + Care Team Providers + +------+ + | Care Surgical Technologist Name | Role | Phone | + +------+ + | Juan F Whitley DO | PCP | | + +------+ + Encounter Details +--------+ + + + + | Date | Type | Department | Care Team | Description | +--------+ + + + + | 04/03/ | Orders Only | [facility] | Alireza Ordoñez | | | 2017 | | ASSOCIATED | MD [address] | | | | | [facility] | [address] | | | | | [address] | [place] [address] | | | | | [address] | [phone] | | | | | [place] [address] | | | | | | [phone] | | | +--------+ + + + [...] + +--------+ + + + | [facility] | Routin | 04/03/2018 | | Results for this | | REQUEST | e | 12:30 PM | | procedure are in the | | | | PDT | | results section. | + +--------+ + + + documented in this encounter Results Pathology Rib Bender Request (04/03/2018 12:30 PM PDT) + + | Specimen | + + | | + + + + + | Narrative | Performed At | + + + | ORDERING PHYSICIAN: Vandana Krishnna PATIENT NAME: | EXTERNAL LAB | | [...] in error, | | | please call [phone]. ADDITIONAL NOTES.: The [employer] | | [...] at the performing | | | laboratory. [facility] is certified under CLIA as qualified | | | to perform high complexity clinical laboratory testing. This test is | | | used for clinical purposes. It should not be regarded as | | | investigational or for research. PERFORMING LABORATORY: Technical | | | preparation was performed by [facility], [address] [place] [address] | | | [place] [address] (Patient Services Clerk: Jairo Mccauley D.O.; | | | CLIA#: [id number]). Diagnostician: Makayla BAUER (ASC) | | | Harness Fitter Electronically Signed 04/10/2018 | | + + + + +---------+ + + | Performing | Address | City/State/Zipcode | Phone Number | | Organization | | | | + +---------+ + + | EXTERNAL LAB | | | | + +---------+ + + documented in this encounter Visit Diagnoses Not on filedocumented in this encounter
--- OUTSIDE RECORDS SUMMARY | ~2020-04-05 | XMS | Encounter Summary ---
Demographics + + + | Address | [address] | | | [place] [address] | + + + | Home Phone | | + + + | Preferred Language | Unknown | + + + | Marital Status | | + + + | Buddhist Affiliation | Unknown | + + + | Race | Unknown | + + + | Ethnic Group | Unknown | + + + Author + + + | Author | [facility] | | | and [place] | + + + | Organization | [facility] | | | and [place] | + + + | Address | Unknown | + + + | Phone | Unavailable | + + + Support + + + + + | Name | Relationship | Address | Phone | + + + + + | Lyubov Smalls | ECON | [place], [place] | | | | | [address] | | + + + + + | Lydia Palm | ECON | [place], [place] | | | | | [address] | | + + + + + | melinda METZ" | ECON | [place], [place] | | | [place] | | [address] | | + + + + + | Jose C Oconnor | ECON | [place] | | | | | [place] | | | | | [address] | | + + + + + Care Team Providers + +------+ + | Care Chalk Machine Operator Name | Role | Phone [...] + + | 11/23/ | Telephone | [facility] | Nidhi Whitaker, | Surgery Appointment | | 2020 | | VASCULAR SURGERY | RN | | | | | [address] | | | | | | [place] | | | | | | [address] | | | | | | [phone] | | | +--------+ + + + [...]
--- OUTSIDE RECORDS SUMMARY | ~2020-04-05 | XMS | Encounter Summary ---
Demographics + + + | Address | [address] | | | [place] [address] | + + + | Home Phone [...] [place], [place] | | | | | [address] | | + + + + + | Lydia Palm | ECON | [place], [place] | | | | | [address] | | + + + + + | melinda METZ" | ECON | [place], [place] | | | [place] | | [address] | | + + + + + | Jose C Oconnor | ECON | [place] | | | | | [place] | | | | | [address] | | + + + + + Care Team Providers + +------+ + | Care Mechanical Applications Engineer Name | Role | Phone | [...] + + | 07/09/ | Telephone | [facility] | Marixa Mendoza, | Follow-up | | 2018 | | VASCULAR SURGERY | Varnish Blender | | | | | [address] | | | | | | [place] | | | | | | [address] | | | | | | [phone] | | | +--------+ + + + [...]
--- OUTSIDE RECORDS SUMMARY | ~2020-04-05 | XMS | Encounter Summary ---
Demographics + + + | Address | [address] | | | [place] [address] | + + + | Home Phone [...] [place], [place] | | | | | [address] | | + + + + + | Lydia Palm | ECON | [place], [place] | | | | | [address] | | + + + + + | melinda METZ" | ECON | [place], [place] | | | [place] | | [address] | | + + + + + | Jose C Oconnor | ECON | [address] | | | | | [place] | | | | | [address] | | + + + + + Care Team Providers + +------+ + | Care Soaking Room Operator Name | Role | Phone | + +------+ + | Juan F Whitley DO | PCP | | + +------+ + Encounter Details +--------+ + + + + | Date | Type | Department | Care Team | Description | +--------+ + + + + | 06/04/ | Hospital | [facility] | José Miguel Olvera MD | Abdominal pain, | | 2017 - | Encounter | MEDICAL [facility]ENTER ACUTE | [address] | unspecified | | | | CARE FLOOR [address] | [place] [address] | location; Chest | | 06/06/ | | [address] | [phone] | pain, unspecified | | 2017 | | [place], [place] | | type; SBP | | | | [address] | | (spontaneous | | | | [phone] | | bacterial | | | | | | peritonitis) ([facility]); | | | | | | Diffuse [...] Summaries by Jaxon Ko MD at 06/05/17 7548 Author: Jaxon Ko MD Service: Hospitalist Author Type: Physician Filed: 06/07/17 1208 Date of Service: 06/05/171739 Status: Signed Mortgage Assistant: Jaxon Ko MD (Physician) [facility] Service: Hospitalist Discharge Summary Date of Admission: [...] INSERTION; Surgeon: Mundo Ramos MD; Lo cation: [facility]; Service: Vascular; Laterality: N/A; No Known Allergies Prescriptions Prior to Admission Medication Sig Dispense Refill Last Dose ALPRAZolam (XANAX) 0.5 MG tablet Take 0.5 mg by mouth nightly as needed for Sleep. @0930 at 1000 amLODIPine (NORVASC) 2.5 MG tablet Take 2.5 mg by mouth daily. 06/03/2017@1400 ergocalciferol (DRISDOL) 95189 UNITS capsule Take 50,000 Units by mouth [...] EGFR 3 (L) 06/06/2017 Culture, Body Fluid [[id number]] Collected: 06/04/17 1506 Order Status: Completed Lab Status: Preliminary result Updated: 06/07/17 1004 Specimen: Body Fluid from Peritoneal Fluid Specimen Description PERITONEAL FLUID GRAM STAIN NO CELLS OR ORGANISMS SEEN CULTURE NO GROWTH 3 DAYS Cell Count, Body Fluid [[id number]] Collected: 06/04/17 1506 Order Status: Completed Lab Status: Final result Updated: 06/04/17 1621 Specimen: Body Fluid from Ascites Fluid FLUID TYPE PERITONEAL FLUID COLOR COLORLESS APPEARANCE CLEAR RBC'S <10,000 /mm3 TOTAL NUCLEATED CELLS 21 /mm3 NEUTROPHILS 19 % LYMPHOCYTES 29 % MONOCYTES/MACROPHAGES 52 % CELLS COUNTED 100 Comment: Testing performed at [facility];[address] [facility];[place] [address] Disposition: Home Condition: Stable Code Status: Full [...] Call MD for: Extreme Fatigue Follow up: [facility] [address] [place] [address] Schedule an appointment as soon as possible for a visit in 1 week Santos Chi MD [facility] Yahir Quinteros [address] [address] Schedule an appointment as soon as possible [...] Refills: 0 Commonly known as: NORVASC ergocalciferol 32422 units capsule Refills: 0 Commonly known as: [...] 06/06/171333 Date of Service: 06/06/171333 Status: Signed Mortgage Assistant: Alyce Gold RN (Registered Nurse) Pt discharged [...] 1914 Date of Service: 06/06/17924 Status: Signed Mortgage Assistant: Linden Monte MD (Physician) [facility] Service: NEPHROLOGY PD/ Progress Note Ramona Hutson Elvin 37 y.o. [id number] female [facility] Hospital Day: LOS: [...] INSERTION; Surgeon: Mundo Ramos MD; Lo cation: [facility]; Service: Vascular; Laterality: [...] Table: I/O last 3 completed shifts: In: 00230 [P.O.:1700; I.V.:2488; Other:93917] Out: 90650 [Other:98309] Weight change: 2.994 kg (6 lb 9.6 [...] earlier and charting completed later Dictation software, Aframe, used which may contain error for similar sounding words even af ter review. Personal communication requested for any clarification. Portions of my notes may have been carried over for continuity of care. onversion Transa ction, Provider Unknown - 06/06/2017 9:16 AM PDT Case Management by Ryley Barker RN at 06/06/1708 Author: Ryley Barker RN Service: (none) Author Type: Registered Nurse Filed: 06/06/17916 Date of Service: 06/06/1716 Status: Signed Mortgage Assistant: Ryley Barker RN (Registered Nurse) Pt will discharge home with spouse and no needs from CM onver patric Transaction, Provider Unknown - 06/06/2017 6:00 AM PDT Nurse Progress Note by Carlyle Merchant RN at 06/06/17 06 Author: Carlyle Merchant RN Service: (none) Author Type: Registered Nurse Filed: 06/06/17 0757 Date of Service: 06/06/17599 Status: Signed Mortgage Assistant: Carlyle Merchant RN (Registered Nurse) Pt continues [...] 06/05/171804 Date of Service: 06/05/171714 Status: Signed Mortgage Assistant: Avinash Johnson RN (Registered Nurse) Pt A&O, [...] to go home. Dr. Ko not ified. Hand Hardener aslo aware of pt not leaving so will be coming to start PD. Will continue to monitor. Avinash Johnson RN onver patric Transaction, Provider Unknown - 06/05/2017 1:04 PM PDT Nurse Progress Note by Silviano Lake RN at 06/05/17 1304 Author: Silviano Lake RN Service: Nephrology Author Type: Registered Nurse Filed: 06/05/17 1306 Date of Service: 06/05/17 1304 Status: Signed Mortgage Assistant: Silviano Lake RN (Registered Nurse) Changed dressing [...] Date of Service: 06/05/17 1141 Status: Signed Mortgage Assistant: Ryley Barker RN (Registered Nurse) 06/05/17 1100 [...] any new needs or concerns Patient's PCP is:[facility] Patient's insurance:medicare/[employer] Coverage concerns: no concerns Medication [...] 06/05/1759 Date of Service: 06/05/17958 Status: Signed Mortgage Assistant: Naheed Lala RPH (Pharmacist) Peritoneal dialysis patient. [...] 1503 Date of Service: 06/05/17842 Status: Signed Mortgage Assistant: Jaxon Ko MD (Physician) [facility] Service: Hospitalist Progress Note Hospital Day: LOS: [...] 06/05/1737 Date of Service: 06/05/17633 Status: Signed Mortgage Assistant: Drea Mckeon RN (Registered Nurse) Pt had [...] 06/04/171854 Date of Service: 06/04/171851 Status: Signed Mortgage Assistant: Avinash Johnson RN (Registered Nurse) Pt admitted [...] 06/04/171803 Date of Service: 06/04/171803 Status: Signed Mortgage Assistant: Sheyla South RPH (Pharmacist) Renal Dosing Monitoring: [...] | | | Basophils | performed at [facility], [address] | K/uL | LAB | | | | [address], | | | | | | [place] [address] | | | | + + + [...] EXTERNAL | | | | performed at [facility], [address] | | LAB | | | | [address], | | | | | | [place] [address] | | | | + + + [...] | | | | | | at [facility], [address] | | | | | | [facility], | | | | | | [place] [address] | | | | + + + [...] | | | | performed at [facility];[address] | mmol/L | LAB | | | | [address];[place], [place] | | | | | | [address] | | | | + + + [...] | | | Basophils | performed at [facility], [address] | K/uL | LAB | | | | [address], | | | | | | [place] [address] | | | | + + + [...] | | | | | [place] [address] | | | | + + + [...] | | | | | [place] [address] | | | | + + + [...] | | | | performed at [facility];[address] | mmol/L | LAB | | | | [address];[place], [place] | | | | | | [address] | | | | + + + [...] | | | | | | at [facility], [address] | | | | | | [address], | | | | | | [place] [address] | | | | + + + [...] | APPEARANCE CLEAR RBC'S | | | <25052 TOTAL NUCLEATED | | | CELLS 21 NEUTROPHILS | | | 19 LYMPHOCYTES | | | 29 MONOCYTES/MACROPHAGES | | | 52 CELLS COUNTED 100 | | | Testing performed at [facility];[address] [facility];[place] [address] | | + + + + +---------+ [...] Conversion - 06/24/2019 3:39 AM PDT RAMONA Hutson ELVIN1978XR ABDOMEN | | ACUTE SERIES06/04/2017 [...] | | | | performed at [facility] | | | | | | [address] [facility];[place], [place] | | | | | | [address] | | | | + + + [...] | | | | performed at [facility];[address] | mmol/L | LAB | | | | [address];[place] | | | | | | [address] | | | | + + + [...] | | | | | at [facility];[address] [place] [address] | | | | | | [facility];[place] [address] | | | | + + + [...] (500), | | | | | | offline editor Alyce Barkley | | | | | | (18) on 06/04/2017 | | | | | | 1:55:24 PMAlso confirmed | | | | | | by MUSE READ ONLY, | | | | | | -COMPUTER (500), offline editor | | | | | | NELDA HOANG (2) on | | | | | | 06/04/2017 1:56:29 PM | | | | + + + + + + + + | Specimen | + + | | + + + + + | Narrative | Performed At | + + + | Historically converted procedure from [facility] Epic environment | EXTERNAL LAB | + [...]
--- OUTSIDE RECORDS SUMMARY | ~2020-04-05 | XMS | Encounter Summary ---
Demographics + + + | Address | [address] | | | [place] [address] | + + + | Home Phone [...] [place], [place] | | | | | [address] | | + + + + + | Lydia Palm | ECON | [place], [place] | | | | | [address] | | + + + + + | melinda METZ" | ECON | [place], [place] | | | [place] | | [address] | | + + + + + | Jose C Oconnor | ECON | [address] [place] | | | | | [place] | | | | | [address] | | + + + + + Care Team Providers + +------+ + | Care Loft Worker Apprentice Name | Role | Phone | + +------+ + | Juan F Whitlye DO | PCP | | + +------+ + Encounter Details +--------+ + + + + | Date | Type | Department | Care Team | Description | +--------+ + + + + | 04/02/ | Hospital | [facility] | Elis JayDO | Nausea vomiting and | | 2019 - | Encounter | MEDICAL CENTER ACUTE | [address] | diarrhea; ESRD on | | | | CARE FLO[address] | [place] [address] | hemodialysis (HCC); | | 04/04/ | | [address] | [phone] | Hyperkalemia; | | 2018 | | [place], [place] | | Leukocytosis, | | | | [address] | | unspecified type | | | | [phone] | | | +--------+ + + + [...] 0844 Date of Service: 04/04/19839 Status: Signed Watch Assembly Inspector: Roque Wyatt DO (Physician) [facility] Service: Hospitalist Discharge Summary Date of [...] Code [place]: [place] [address] [place] [address] Medication List CONTINUE taking these medications LORazepam [...] of dis charge summary. Roque Wyatt DO 04/04/2019 8:41 AM documented in [...] 04/04/19946 Date of Service: 04/04/19946 Status: Signed Watch Assembly Inspector: Francie Andrews RN (Registered Nurse) Discharge instructions [...] 04/04/198 Date of Service: 04/04/19753 Status: Signed Watch Assembly Inspector: Deanne Jaimes RN (Registered Nurse) Ramona is [...] Notes by Roque Wyatt DO at 04/03/19 480 Author: Roque Wyatt DO Service: Hospitalist Author Type: Physician Filed: 04/03/198 Date of Service: 04/03/196 Status: Signed Watch Assembly Inspector: Roque Wyatt DO (Physician) PROGRESS NOTE 04/03/2019 [...] 04/03/1914 Date of Service: 04/03/19607 Status: Signed Watch Assembly Inspector: Salome Garcia RN (Registered Nurse) Pt admitted [...] 04/02/192211 Date of Service: 04/02/192211 Status: Signed Watch Assembly Inspector: Minerva Cruz RPH (Pharmacist) Clinical Pharmacy Note: [...] | Basophils | performed at [facility], [address] | K/uL | LAB | | | | [address], | | | | | | [place] [address] | | | | + + + [...] | | | performed at [facility], [address] | | LAB | | | | [address], | | | | | | [place] [address] | | | | + + + [...] | | | | | [place] [address] | | | | + + + [...] | | | | | performed at [facility], [address] | | | | | | [facility], | | | | | | [place] [address] | | | | + + + [...] [place] | | | | | | [address] | | | | + + + [...] | | | Basophils | performed at [facility];[address] | K/uL | LAB | | | | [address];[place] | | | | | | [address] | | | | + + + [...] | | | | | performed at [facility], [address] | | | | | | [address], | | | | | | [place] [address] | | | | + + + [...] | | | | | [place] [address] | | | | + + + [...] | | | | | performed at [facility], [address] | | | | | | [facility], | | | | | | [place] [address] | | | | + + + [...] | | | | | 100 - 16020 - 4 WEEKS | | | | | | . . . . 500 - 982511 - | | | | | | 5 WEEKS . . . . 1000 - | | | | | | 844448 - 6 WEEKS . . . | | | | | | [address] - 5295357 - 8 | | | | | | WEEKS . . . 601[address] - | | | | | | 3617227 - 3 MONTHS . . . | | | | | | [address] - 779503 Testing | | | | | | performed at [facility] | | | | | | [address] [facility];[place] | | | | | | [address] | | | | + + + [...] | | | | | ONLY, -COMPUTER (538), | | | | | | script editor Yesenia King | | | | [...] at [facility] | | | | | | [address];[place] | | | | | | [address] | | | | + + + [...] EXTERNAL | | | | performed at [facility];[address] | mmol/L | LAB | | | | [address];[place] | | | | | | [address] | | | | + + + [...] | | | | | | MDRD [facility] traceable | | | | | | equation.Testing | | | | | | performed at [facility];[address] | | | | | | [facility];[place], [place] | | | | | | [address] | | | | + + + [...]
--- OUTSIDE RECORDS SUMMARY | ~2020-04-05 | XMS | Encounter Summary ---
Demographics + + + | Address | [address] | | | [place] [address] | + + + | Home Phone [...] [place], [place] | | | | | [address] | | + + + + + | Lydia Palm | ECON | [place], [place] | | | | | [address] | | + + + + + | melinda METZ" | ECON | [place], [place] | | | [place] | | [address] | | + + + + + | Jose C Oconnor | ECON | [address] | | | | | [place] | | | | | [address] | | + + + + + Care Team Providers + +------+ + | Care Furnace Operator And Tender Name | Role | Phone | [...] + + | 01/03/ | Telephone | [facility] | Samira Dixon, | Surgery Appointment | | 2020 | | VASCULAR SURGERY | RN | | | | | [address] | | | | | | [place], [place] | | | | | | [address] | | | | | | [phone] | | | +--------+ + + + [...]
--- OUTSIDE RECORDS SUMMARY | ~2020-04-05 | XMS | Encounter Summary ---
Demographics + + + | Address | [address] | | | [place] [address] | + + + | Home Phone [...] [place], [place] | | | | | [address] | | + + + + + | Lydia Palm | ECON | [place], [place] | | | | | [address] | | + + + + + | melinda METZ" | ECON | [place], [place] | | | [place] | | [address] | | + + + + + | Jose C Oconnor | ECON | [address] | | | | | [place] | | | | | [address] | | + + + + + Care Team Providers + +------+ + | Care Dragsaw Operator Name | Role | Phone | [...] | | ([facility]) | | | | | | | Procedures | | | | | | | [place] | | | | | | | [...] + + | 12/16/ | Hospital | [facility] | PoiQasim MD | | | 2020 | Encounter [facility] | [address] | | | | | OPER[address] RO[address] | [place], [place] | | | | | [address] | [address] | | | | | [place], [place] | | | | | | [address] | | | | | | [phone] | | | +--------+ + + + [...] cuts, scrapes, or blows. Date Last Reviewed: 11/10/201619997701-3134 [employer]. [address] [place] [address]. All [facility] ts reserved. This information is not intended [...] service will answer evenings and weekends) 2. [facility] Anesthesia 24-hour toll-free call line: [phone] (follow instructions careful ly if forwarded to [...] [facility] | | | | performed at [facility];[address] | | LABORATORY | | | | [address];[place], [place] | | | | | | [address] | | | | + + + + + + + + | Specimen | + + | Blood | + + + + + + + | Performing | Address | City/State/Zipcode | Phone Number | | Organization | | | | + + + + + | [facility] | [address] | [place] [address] | [phone] | + + + + + CBC [...] | | Absolute | performed at [facility];[address] | K/uL | LABORATORY | | | | [address];[place], [place] | | | | | | [address] | | | | + + + + + + + + | Specimen | + + | Blood | + + + + + + + | Performing | Address | City/State/Zipcode | Phone Number | | Organization | | | | + + + + + | [facility] | [address] | [place] [address] | [phone] | + + + + + Basic [...] 6 (L)Comment: GFR <60: | >60 | [facility] | | | GFR | CHRONIC [...] | | | | | MDRD [facility] traceable | | | | | | equation.Testing | | | | | | performed at [facility];[address] | | | | | | [address] [facility];[place], [place] | | | | | | [address] | | | | + + + + + + + + | Specimen | + + | Blood | + + + + + + + | Performing | Address | City/State/Zipcode | Phone Number | | Organization | | | | + + + + + | [facility] | [address] | [place] [address] | [phone] | + + + + + documented in this encounter Visit Diagnoses + + | Diagnosis | + + | ESRD on dialysis ([facility]) End stage renal disease | + + documented in this encounter Admitting Diagnoses + + | Diagnosis | + + | ESRD on dialysis ([facility]) End stage renal disease | + + [...] | | | | | | longer, itnviw-bvw-yqvqu use of | | | | | [...] One week or longer, | | | juwiqk-rfm-dvgdj use of at least | | | [...]
--- OUTSIDE RECORDS SUMMARY | ~2020-04-05 | XMS | Encounter Summary ---
Demographics + + + | Address | [address] | | | [place] [address] | + + + | Home Phone [...] [place], [place] | | | | | [address] | | + + + + + | Lydia Palm | ECON | [place], [place] | | | | | [address] | | + + + + + | melinda METZ" | ECON | [place], [place] | | | [place] | | [address] | | + + + + + | Jose C Oconnor | ECON | [address] | | | | | [place] | | | | | [address] | | + + + + + Care Team Providers + +------+ + | Care Practicing Dermatologist Name | Role | Phone | + [...] + + | 07/06/ | Clinical | [facility] | Nidhi Whitaker, | ESRD (end stage | | 2019 | Support | VASCULAR SURGERY | RN | renal disease) on | | | | [address] | | dialysis (HCC) | | | | [place] | | (Primary Dx) | | | | [address] | | | | | | [phone] | | | +--------+ + + + [...] this encounter Progress Nidhi Zuniga RN - 07/06/2019 1:30 PM PDTPatient presented [...] sibly soiled. Patient will be scheduled with [facility] [place] once surgery order is received. Since patient is no longer home bound, she will be [facility]. Patient will call Vascular [...]
--- OUTSIDE RECORDS SUMMARY | ~2020-04-05 | XMS | Encounter Summary ---
Demographics + + + | Address | [address] | | | [place] [address] | + + + | Home Phone [...] [place], [place] | | | | | [address] | | + + + + + | Lydia Palm | ECON | [place], [place] | | | | | [address] | | + + + + + | melinda METZ" | ECON | [place], [place] | | | reba | | [address] | | + + + + + | Jose C Oconnor | ECON | [place] | | | | | [place] | | | | | [address] | | + + + + + Care Team Providers + +------+ + | Care Necktie Centralizing Machine Operator Name | Role | Phone [...] + + | 01/07/ | Emergency | [facility] | Natalio Wyatt, | Torticollis, acute | | 2017 | | [facility] | [address] | (Primary Dx) | | | | CENTER [address] | [facility] [place] | | | | | [place], [place] | [place] [address] | | | | | [address] | [phone] | | | | | [phone] | | | +--------+ + + + [...] 01/07/2017Take the medicine as prescribed by her [facility] doctor Try heat to neck Follow-up with your primary care doctor AttachmentsThe following attachments cannot be sent through Care Everywhere.TORTICOLLIS (WR Y NECK) (DIVEHI)documented in this encounter Medications at Time of [...] reported to the ER staff by the [facility] radiologist on January 07 | | | [...] DISEASE AND | | MILD ANTEROLISTHESIS AT [id number] SIGNIFICANT STENOSIS.2. TINY RIGHT THYROID | | CYSTS/NODULES. CONSIDER SONOGRAPHIC FOLLOW-UP.Preliminary results of this study were | | [facility] on January 07, 2017 at 2222 | [...] reported to the ER staff by the [facility] | |radiologist on January 07, 2017 [...]
--- OUTSIDE RECORDS SUMMARY | ~2020-04-05 | XMS | Encounter Summary ---
Demographics + + + | Address | [address] | | | [place] [address] | + + + | Home Phone [...] [place], [place] | | | | | [address] | | + + + + + | Lydia Palm | ECON | [place], [place] | | | | | [address] | | + + + + + | melinda METZ" | ECON | [place], [place] | | | [place]ba | | [address] | | + + + + + | Jose C Oconnor | ECON | [place] | | | | | [place] | | | | | [address] | | + + + + + Care Team Providers + +------+ + | Care Environmental Sampler Name | Role | Phone | + [...] | | | ([facility]) | | | | | | | Procedures | | | | | | | [place] | | | | | | | [...] + + | 12/16/ | Surgery | [facility] | Qasim Pederson MD | INSERTION AV FISTULA | | 2019 | | [facility] | [address] | or GRAFT CREATION | | | | OPERATING ROOM [address] | [place], [place] | | | | | [address]ERAV[address] | [address] | | | | | [place], [place] | | | | | | [address] | | | | | | [phone] | | | +--------+---------+ + + + [...] cuts, scrapes, or blows. Date Last Reviewed: 11/10/201619994341-7826 [email or web address]. [address] [place] [address], [place] [address]. All righ ts reserved. This information is [...] service will answer evenings and weekends) 2. [facility] Anesthesia 24-hour toll-free call line: [phone] (follow instructions careful ly if forwarded to [...] hesham maynard brought back. Call light within reachroby in lowest position. Report given to Ibeth [...] [facility] | | | | performed at [facility] | | LABORATORY | | | | [address];[place], [place] | | | | | | [address] | | | | + + + + + + + + | Specimen | + + | Blood | + + + + + + + | Performing | Address | City/State/Zipcode | Phone Number | | Organization | | | | + + + + + | [facility] | [address] | [place] [address] | [phone] | + + + + + CBC with Differential (12/16/2019 11:03 AM PST) + + + + + + | Component | Value | Ref Range | Performed | Pathologist | | | | | At | Signature | + + + + + + | WBC | 9.13 | 3.80 - 11.00 | [facility] | [...] | | | Absolute | performed at [facility];[address] | K/uL | LABORATORY | | | | [address];[place], [place] | | | | | | [address] | | | | + + + + + + + + | Specimen | + + | Blood | + + + + + + + | Performing | Address | City/State/Zipcode | Phone Number | | Organization | | | | + + + + + | [facility] | [address] | [place] [address] | [phone] | + + + + + Basic [...] (L)Comment: GFR <60: | >60 | [facility] | | | GFR | CHRONIC [...] | | | | | | MDRD IDNC traceable | | | | | | equation.Testing | | | | | | performed at [facility] | | | | | | [facility];[place], [place] | | | | | | [address] | | | | + + + + + + + + | Specimen | + + | Blood | + + + + + + + | Performing | Address | City/State/Zipcode | Phone Number | | Organization | | | | + + + + + | [facility] | [address] | [place] [address] | [phone] | + + + + + documented in this encounter Visit Diagnoses + + | Diagnosis | + + | ESRD on dialysis ([facility]) End stage renal disease | + + documented in this encounter Admitting Diagnoses + + | Diagnosis | + + | ESRD on dialysis ([facility]) End stage renal disease | + + [...] | | | | | | longer, atuocu-hrm-lzzdn use of | | | | | [...] | | | | Mixture PRN, Starting [facility] 12/16/19 | | | | | | [...] One week or longer, | | | wvhhej-ntg-hghix use of at least | | | [...] PST | | | | | Starting [facility] 12/16/19 at 1500, | | | | | | | Recovery/Phase I | | | | | | + +-------+ +------+---+---+ +---+---+ | | | +---+---+ + +-------+ +------+---+---+ | oxyCODONE (ROXICODONE) tablet 5 | Given | 12/16/19 | 5 mg | | | | mg 5 mg, Oral, ONCE PRN, Pain, | | 20 4:50 | | | | | Starting [facility] 12/16/19 at 1500, For | | PM [...]
--- OUTSIDE RECORDS SUMMARY | ~2020-04-05 | XMS | Encounter Summary ---
Demographics + + + | Address | [address] | | | [place] [address] | + + + | Home Phone [...] [place], [place] | | | | | [address] | | + + + + + | Lydia Palm | ECON | [place], [place] | | | | | [address] | | + + + + + | melinda METZ" | ECON | [place], [place] | | | [place] | | [address] | | + + + + + | Jose C Oconnor | ECON | [place] | | | | | [place] | | | | | [address] | | + + + + + Care Team Providers + +------+ + | Care Corn Popper Name | Role | Phone | + +------+ + | No, Physician | PCP | Unavailable | + +------+ + Reason for Visit + + + | Reason | Comments | + + + | Follow-up | 2 wk f/u wound check | + + + Encounter Details +--------+---------+ + + + | Date | Type | Department | Care Team | Description | +--------+---------+ + + + | 10/12/ | Office | [facility] | Man Jeronimo, | End-stage renal | | 2019 | Visit | VASCULAR SURGERY | PA-C [address] | disease (HCC) | | | | [address] | [address] JESUS, | (Primary Dx) | | | | [place] | [place] [address] | | | | | [address] | [phone] | | | | | [phone] | | | +--------+---------+ + + + [...] +---------+ + + | Blood Pressure | 134/84 | 10/12/2019 12:59 PM | | | | | PST | | + +---------+ + + | Pulse | 65 | 10/12/2019 12:59 PM | | | | | PST | | + +---------+ + + | Temperature | - | - | | + +---------+ + + | Respiratory Rate | - | - | | + +---------+ + + | Oxygen Saturation | 100% | 10/12/2019 12:59 PM | | | | | PST [...] encounter Progress Notes Man Jeronimo PA-C - 10/12/2019 1:00 PM [facility] [address] [place] [address] Office: [phone] DATE OF VISIT: 10/12/2019 PATIENT NAME: Ramona Oconnor : 1980; AGE: [...] history of HTN and ESRDwho presented to [facility] ED with fever and chills with [...] 08/26 patient was emerg ently transferred to [facility] for severe bleeding from left axilla. She was taken to the OR for graft ligation. However, the graft was not removed and wound was closed. She underwent r emoval of graft and wound vac placement x 2 on 09/03/2019. Since her discharge, she was been doing well. Her last wound vac was removed last week and she has been doing well. She denie s any drainage, purulence, fever, chills, night sweats. She continues to use her TDC for acc ess and reports positional issues while using TDC for HD. VITAL SIGNS: BP 134/84 | Pulse 65 | SpO2 100% PHYSICAL EXAM: Vitals:reviewed CONSTITUTIONAL: Conversant, well developed, NAD EYES: Anicteric sclerae, no lid drag, no proptosis RESP: Normal effort, regular, even, unlabored rate CV: No peripheral edema, rate regular SKIN: [place], warm, dry without rash/lesion MS: ROM not limited, no digital cyanosis, normal gait NEURO: Conversant, A&O times 3 PSYCH: appropriate affect, speech and tone, judgement and insight intact Vascular:Incisions in distal upper arm are fully healed. Axillary wound with small 0.2 cm wound with granulation tissue present. Bandages replaced. No drainage or erythema noted. Right sided tunneled catheter in place. ASSESSMENT AND PLAN: Infection of previously ligated arteriovenous graft / Sepsis - She is doing well post opera tively. Her wound vac was removed last week and her wound continues to heal. She has good gr anulation tissue present and she is not showing any symptoms or signs of infection. We discu ssed the need for right arm access creation in the future but will wait for skin to be fully healed prior to scheduling surgery. Follow up in 6 weeks for final wound check and to discu ss new AV access creation. Will obtain a mapping ultrasound of her right arm prior to next a ppointment. HINA Brock-C Tdocumented in this encounter Plan of Treatment Not on filedocumented as of this encounter Visit Diagnoses + + | Diagnosis | + + | End-stage renal disease (HCC) - Primary End stage renal disease | + + documented in this encounter
--- OUTSIDE RECORDS SUMMARY | ~2020-04-05 | XMS | Encounter Summary ---
Demographics + + + | Address | [address] | | | [place] [address] | + + + | Home Phone [...] [place], [place] | | | | | [address] | | + + + + + | Lydia Palm | ECON | [place], [place] | | | | | [address] | | + + + + + | melinda METZ" | ECON | [place], [place] | | | [place] | | [address] | | + + + + + | Jose C Oconnor | ECON | [address] [place] | | | | | [place] | | | | | [address] | | + + + + + Care Team Providers + +------+ + | Care Job Recruiter Name | Role | Phone | + [...] | | | | | | | ([facility]) Wound | | | | | [...] + + | 07/08/ | Preadmit | [facility] | PoiQasim MD | | | 2019 | Visit | CENTER [facility] | [address] | | | | | CLINIC [address] | [place], [place] | | | | | [place], [place] | [id number] | | | | | [address] | | | | | | [phone] | | | +--------+ + + + [...] [facility] | | | | performed at [facility];[address] | | LABORATORY | | | | [facility];[place], [place] | | | | | | [address] | | | | + + + + + + + + | Specimen | + + | Blood | + + + + + + + | Performing | Address | City/State/Zipcode | Phone Number | | Organization | | | | + + + + + | [facility] | [address] | [place] [address] | [phone] | + + + + + Basic [...] [place];[address] | | | | | | [facility];[place], [place] | | | | | | [address] | | | | + + + + + + + + | Specimen | + + | Blood | + + + + + + + | Performing | Address | City/State/Zipcode | Phone Number | | Organization | | | | + + + + + | [facility] | [address] | [place] [address] | [phone] | + + + + + CBC [...] | | | Absolute | performed at [facility];[address] | [address] | LABORATORY | | | | [address];[place] | | | | | | [address] | | | | + + + + + + + + | Specimen | + + | Blood | + + + + + + + | Performing | Address | City/State/Zipcode | Phone Number | | Organization | | | | + + + + + | [facility] | [address] | [place] [address] | [phone] | + + + + + ECG [...]
--- OUTSIDE RECORDS SUMMARY | ~2020-04-05 | XMS | Encounter Summary ---
Demographics + + + | Address | [address] | | | [place] [address] | + + + | Home Phone | | + + + | Preferred Language | Unknown | + + + | Marital Status | | + + + | Lutheran Affiliation | Unknown | + + + | Race | Unknown | + + + | Ethnic Group | Unknown | + + + Author + + + | Author | [facility] | | | and [place] | + + + | Organization | [facility] | [...] [place], [place] | | | | | [address] | | + + + + + | Lydia Palm | ECON | [place], [place] | | | | | [address] | | + + + + + | melinda METZ" | ECON | [place], [place] | | | [place] | | [address] | | + + + + + | Jose C Oconnor | ECON | [place] | | | | | [place] | | | | | [address] | | + + + + + Care Team Providers + +------+ + | Care Lay Out Helper Name | Role | Phone | [...] | | | | | | | ([facility]) Wound | | | | [...] + + | 07/08/ | Hospital | [facility] | PoQasim de la rosa MD | ESRD on dialysis | | 2019 | Encounter | [facility] | [address] | ([facility]); Wound | | | | CARE FLOOR [address] | [place], [place] | infection after | | | | [address] | [address] | surgery | | | | [place], [place] | | | | | | [address] | | | | | | [phone] | | | +--------+ + + + [...] chamber of the vacuum Date Last Reviewed: 12/11/201619992565-7387 [employer] [address] [place] [address]. All righ ts reserved. This information is [...] Anexsia, Lorcet, Lorcet HD, Lorcet Plus, Lortab, Ashippun, Verdrocet, Vicodin, Vi codin ES, Vicodin HP, [...] information carefully each time. Talk to your agency owner regarding the use of this medicine in children. Special care may be needed. What side effects may I notice from receiving this medicine? Side effects that you should report to your doctor or health home care specialist as soon as p ossible: allergic reactions [...] attention (report to your doctor or health home care specialist if they continue or are bothersome): constipation [...] official disposal site. Contact the [facility] at [phone] or your [facility] to find a site. If you [...] this medicine? Tell your doctor or health home care specialist if your pain does not go away, [...] Do not take more medicine than directed. Ajk l emergency for help if you have [...] behind the other ear. Talk to your agency owner regarding the use of this medicine in children. Special care may be needed. What side effects may I notice from receiving this medicine? Side effects that you should report to your doctor or health home care specialist as soon as p ossible: agitation, nervousness, confusion blurred vision and other eye problems dizziness, drowsiness eye pain or redness in the whites of the eye hallucinations pain or difficulty passing urine skin rash, itching vomiting Side effects that usually do not require medical attention (report to your doctor or health home care specialist if they continue or are bothersome): headache [...] | | | | 11:32 AM | ([facility]) Wound | | | | [...] [facility] | | | | performed at [facility];[address] | | LABORATORY | | | | [address];[place], [place] | | | | | | [address] | | | | + + + + + + + + | Specimen | + + | Blood | + + + + + + + | Performing | Address | City/State/Zipcode | Phone Number | | Organization | | | | + + + + + | [facility] | [address] [facility] | [place] [address] | [phone] | + + + + + documented [...] | | | | | | longer, byyogk-jop-jqfwo use of | | | | | [...] | | | | | | | atezxt-apo-gyzgy use of at least | | | [...]
--- OUTSIDE RECORDS SUMMARY | ~2020-04-05 | XMS | Encounter Summary ---
Demographics + + + | Address | [address] | | | [place] [address] | + + + | Home Phone | | + + + | Preferred Language | Unknown | + + + | Marital Status | | + + + | Pentecostalism Affiliation | Unknown | + + + | Race | Unknown | + + + | Ethnic Group | Unknown | + + + Author + + + | Author | [facility] | | | and [place] | + + + | Organization | [facility] | [...] [place], [place] | | | | | [address] | | + + + + + | Lydia Palm | ECON | [place], [place] | | | | | [address] | | + + + + + | melinda METZ" | ECON | [place], [place] | | | [place] | | [address] | | + + + + + | Jose C Oconnor | ECON | [address] [place] | | | | | [place] | | | | | [address] | | + + + + + Care Team Providers + +------+ + | Care Beater Dumper Name | Role | Phone | + [...] | Radiology | Diagnoses | Tres | [facility] | | | | | End-stage | Shad Raymundo MD | Intra Op [address] | | | | | renal | [address] | | | | | disease | [address] | [place], [place] | | | | | ([facility]) | Drive [address] | [address] | | | | | Procedures | [place] | Phone: | | | | | [place] | [place] [address] | [phone] | | | | | Replacement | Phone: | Fax: | | | | | Tunneled | [phone] | [phone] | | | | | Cath | Fax: | | | | | | | [phone] | | +--------+--------+ + + + + Encounter Details +--------+ + + + + | Date | Type | Department | Care Team | Description | +--------+ + + + + | 11/04/ | Telephone | [facility] | Demar Ponce, | | | 2018 | | INTERVENTIONAL | RN | | | | | RADIOLOGY [address] | | | | | | [address] | | | | | | [place], [place] | | | | | | [address] | | | | | | [phone] | | | +--------+ + + + [...] filedocumented as of this encounter Results IR Mariama Talbert (11/05/2019 2:05 PM PST) + + | [...]
--- OUTSIDE RECORDS SUMMARY | ~2020-04-05 | XMS | Encounter Summary ---
Demographics + + + | Address | [address] | | | [place] [address] | + + + | Home Phone [...] | Author | [facility] | | | and [place] | + + + | Organization | [facility] | | | and [place] | + + + | Address | Unknown | + + + | Phone | Unavailable | + + + Support + + + + + | Name | Relationship | Address | Phone | + + + + + | Lyubov Smalls | ECON | [place], [place] | | | | | [address] | | + + + + + | Lydia Palm | ECON | [place], [place] | | | | | [address] | | + + + + + | melinda METZ" | ECON | [place], [place] | | | [place] | | [address] | | + + + + + | Jose C Oconnor | ECON | [place] | | | | | [place] | | | | | [address] | | + + + + + Care Team Providers + +------+ + | Care Auditing Coder Name | Role | Phone | + +------+ + | No, Physician | PCP | Unavailable | + +------+ + Encounter Details +--------+---------+ + + + | Date | Type | Department | Care Team | Description | +--------+---------+ + + + | 09/14/ | Office | [facility] | Man Jeronimo, | Infection of | | 2019 | Visit | VASCULAR SURGERY | PAAbelardoC [address] | arteriovenous | | | | [address] | [address] JESUS, | dialysis fistula, | | | | [place] | [place] [address] | subsequent encounter | | | | [address] | [phone] | (Primary Dx); | | | | [phone] | | Infected prosthetic | | | [...] Man Jeronimo PA-C - 09/14/2019 2:00 PM [facility] Surgery [facility] [address] [place] [address] Office: [phone] DATE OF VISIT: 09/14/2019 PATIENT NAME: Ramona [...] history of HTN and ESRDwho presented to [facility] ED with fever and chills [...] 08/26 patient was e mergently transferred to [facility] for severe bleeding from left axilla. [...] CV: No peripheral edema, rate regular SKIN: [place], warm, dry without rash/lesion MS: ROM not [...]
--- OUTSIDE RECORDS SUMMARY | ~2020-04-05 | XMS | Encounter Summary ---
Demographics + + + | Address | [address] | | | [place] [address] | + + + | Home Phone [...] [place], [place] | | | | | [address] | | + + + + + | Lydia Palm | ECON | [place], [place] | | | | | [address] | | + + + + + | melinda METZ" | ECON | [place], [place] | | | [place] | | [address] | | + + + + + | Jose C Oconnor | ECON | [address] [place] | | | | | [place] | | | | | [address] | | + + + + + Care Team Providers + +------+ + | Care Strap Maker Name | Role | Phone | [...] [address] | [place] [address] | | | | | [address] [place] [address] | [phone] | | | | | [address] | | | | | | [phone] | | | +--------+ + + + [...]
--- OUTSIDE RECORDS SUMMARY | ~2020-04-05 | XMS | Encounter Summary ---
Demographics + + + | Address | [address] | | | [place] [address] | + + + | Home Phone | | + + + | Preferred Language | Unknown | + + + | Marital Status | | + + + | Mosque Affiliation | Unknown | + + + | Race | Unknown | + + + | Ethnic Group | Unknown | + + + Author + + + | Author | [facility] | | | and [place] | + + + | Organization | [facility] | | | and [place] | + + + | Address | Unknown | + + + | Phone | Unavailable | + + + Support + + + + + | Name | Relationship | Address | Phone | + + + + + | Lyubov Smalls | ECON | [place], [place] | | | | | [address] | | + + + + + | Lydia Palm | ECON | [place], [place] | | | | | [address] | | + + + + + | melinda METZ" | ECON | [place], [place] | | | [place] | | [address] | | + + + + + | Jose C Oconnor | ECON | [address] [place] | | | | | [place] | | | | | [address] | | + + + + + Care Team Providers + +------+ + | Care Commercial Lines Manager Name | Role | Phone | [...] | | | | | disease) | [place] | | | | | | ([facility]) | [address] | | | | | | Procedures | Phone: | | | | | | VAS Ankle | [phone] | | | | | | Brachial | Fax: | | | | | | Index | [phone] | | | | | | Resting | | | +--------+--------+ + + + + Encounter Details +--------+ + + + + | Date | Type | Department | Care Team | Description | +--------+ + + + + | 12/23/ | Hospital | [facility] | | PAD (peripheral | | 2020 | Encounter | VASCULAR SURGERY | | artery disease) | | | | ULTRASOUND [address] | | (HCC) | | | | [address] | | | | | | [place] | | | | | | [address] | | | | | | [phone] | | | +--------+ + + + [...] the | | | | PST | ([facility]) | results section. | + +--------+ + [...] Severe | | | Signed by: Daphney Dumont, Slade Sign Date/Time: 12/24/2019 7:54 AM | | [...]
--- OUTSIDE RECORDS SUMMARY | ~2020-04-05 | XMS | Clinical Summary ---
Demographics + + + | Address | [address] | | | [place] [address] | + + + | Home Phone [...] [place], [place] | | | | | [address] | | + + + + + | Lydia Palm | ECON | [place], [place] | | | | | [address] | | + + + + + | melinda METZ" | ECON | [place], [place] | | | [place]ba | | [address] | | + + + + + | Jose C Oconnor | ECON | [place] | | | | | [place] | | | | | [address] | | + + + + + Care Team Providers + +------+ + | Care Engineer Rf Deployment Name | Role | Phone | + [...] automatically from request for surgery | | [id number] | + + + + + | [...] automatically from request for surgery | | [id number] | + + + + + | ESRD on hemodialysis | 08/25/2019 | + + + + + | Overview: Added automatically from request for surgery | | [id number] | + + + + + | ESRD on dialysis | 07/06/2019 | + + + + + | Overview: Added automatically from request for surgery | | [id number] | + + + + + | Wound infection after surgery | 07/06/2019 | + + + + + | Overview: Added automatically from request for surgery | | [id number] | + + + + + | [...] | | 11/09/ | [id number] | | [id number] - Sn/AImplanted: | | Arm | ARTG [...] | | | 8-045 | | at [facility] | | | | | | | | [facility] | | | | | | | [...] Serum | NEGATIVEComment: Testing | NEG | [facility] | | | | performed at [place];[address] | | LAB[address]AT[address] | | | | [address];[place], [place] | | | | | | [address] | | | | + + + + + + + + | Specimen | + + | Blood | + + + + + + + | Performing | Address | City/State/Zipcode | Phone Number | | Organization | | | | + + + + + | [facility] | [address] [facility] | [place] [address] | [phone] | + + + + + Basic [...] | | | | | performed at [place];[address] | | | | | | [facility];[place], [place] | | | | | | [address] | | | | + + + + + + + + | Specimen | + + | Blood | + + + + + + + | Performing | Address | City/State/Zipcode | Phone Number | | Organization | | | | + + + + + | [facility] | [address] | [place] [address] | [phone] | + + + + + from [...] +--------+ +---------+--------+ | MEDICARE | MEDICA | [id number] | Effect | [phone] | | Medica | | | RE | | elizabeth | 5 | | re | | | PART A | | for | | | | | | | | all | | | | | | | | dates | | | | + +--------+ +--------+ +---------+--------+ | BCBS | BCBS | [id number] | 11/10/19 | | | PPO | | | FEDERA | | 16-Pre | | | | | | L FEP | | sent | | | | + +--------+ +--------+ +---------+--------+ | MEDICARE | MEDICA | [id number] | | [phone] | | Medica | | | RE | | 015-Pr | 5 | | re | | | PART A | | esent | | | | + +--------+ +--------+ +---------+--------+ | [facility] | IHS | [id number] | 02/09/20 | | | Indemn | [...] [place] | | | 9 (Home) | [address] | + +--------+ +--------+ + + | ThomasRamona dugan | Person | Self | [birth year] | [address] | | Lien | [place] | | 1980 | [phone] | [place] | | | caesar | | | 9 (Home) | [address] | + +--------+ +--------+ + + Advance Directives + + + + + | Type | Date Recorded | Patient | Explanation | | | | Swing Tender | | + + + + + | Power of | | | | | Insurance Plan Specialist | | | | + + [...]
--- OUTSIDE RECORDS SUMMARY | ~2020-04-05 | XMS | Encounter Summary ---
Demographics + + + | Address | [address] | | | [place] [address] | + + + | Home Phone [...] [place], [place] | | | | | [address] | | + + + + + | Lydia Palm | ECON | [place], [place] | | | | | [address] | | + + + + + | melinda METZ" | ECON | [place], [place] | | | [place] | | [address] | | + + + + + | Jose C Oconnor | ECON | [place] | | | | | [place] | | | | | [address] | | + + + + + Care Team Providers + +------+ + | Care Fpga Design Engineer Name | Role | Phone | + +------+ + | Unknown, Physician | PCP | | + +------+ + Encounter Details +--------+ + + + + | Date | Type | Department | Care Team | Description | +--------+ + + + + | 02/17/ | Telephone | [facility] | Frances Glass RN | | | 2019 | | [facility] | | | | | | [address] | | | | | | [place] | | | | | | [address] | | | | | | [phone] | | | +--------+ + + + [...]
--- OUTSIDE RECORDS SUMMARY | ~2020-04-05 | XMS | Encounter Summary ---
Demographics + + + | Address | [address] | | | [place] [address] | + + + | Home Phone [...] [place], [place] | | | | | [address] | | + + + + + | Lydia Palm | ECON | [place], [place] | | | | | [address] | | + + + + + | melinda METZ" | ECON | [place], [place] | | | [place] | | [address] | | + + + + + | Jose C Oconnor | ECON | [address] [place] | | | | | [place] | | | | | [address] | | + + + + + Care Team Providers + +------+ + | Care Regulatory Scientist Name | Role | Phone | [...] + + | 07/09/ | Telephone | [facility] | Marixa Mendoza, | Follow-up | | 2018 | | VASCULAR SURGERY | Windshield Wiper Repairer | | | | | [address] | | | | | | [place] | | | | | | [address] | | | | | | [phone] | | | +--------+ + + + [...]
--- OUTSIDE RECORDS SUMMARY | ~2020-04-05 | XMS | Encounter Summary ---
Demographics + + + | Address | [address] | | | [place] [address] | + + + | Home Phone | | + + + | Preferred Language | Unknown | + + + | Marital Status | | + + + | Amish Affiliation | Unknown | + + + | Race | Unknown | + + + | Ethnic Group | Unknown | + + + Author + + + | Author | [facility] | | | and [place] | + + + | Organization | [facility] | | | and [place] | + + + | Address | Unknown | + + + | Phone | Unavailable | + + + Support + + + + + | Name | Relationship | Address | Phone | + + + + + | Lyubov Smalls | ECON | [place], [place] | | | | | [address] | | + + + + + | Lydia Palm | ECON | [place], [place] | | | | | [address] | | + + + + + | melinda METZ" | ECON | [place], [place] | | | reba | | [address] | | + + + + + | Jose C Oconnor | ECON | [place] | | | | | [place] | | | | | [address] | | + + + + + Care Team Providers + +------+ + | Care National Service Officer Name | Role | Phone | + +------+ + | Juan F Whitley DO | PCP | | + +------+ + Encounter Details +--------+ + + + + | Date | Type | Department | Care Team | Description | +--------+ + + + + | 01/22/ | Hospital | [facility] | Alexx Pate | Cellulitis; Urinary | | 2017 - | Encounter | [facility] | MD [address] | tract infection, | | | | CARE FLOOR [address] | [address] | site unspecified; | | 01/25/ | | [address] | [place] [address] | Abdominal wall | | 2017 | | [place], [place] | [phone] | abscess; CKD | | | | [address] | | (chronic kidney | | | | [phone] | | disease), | | | | [...] Shad Ba MD at 01/25/17 1320 Author: Shad Ba MD Service: Hospitalist Author Type: Physician Filed: 01/25/17 1800 Date of Service: 01/25/17 1320 Status: Addendum Reading Recovery Teacher: Shad Ba MD (Physician) Related Notes: Original Note by Shad Ba MD (Physician) filed at 01/25/17 1758 Patient: Ramona Oconnor : 1980 Date of Admission: 01/22/2017 Date of Discharge: 01/25/2017 Treatment Team: Consulting Physician: Andres Mejia MD Admitting Provider: Alexx Pate MD Discharging Provider: Shad Ba MD Discharge Diagnoses: Principal Problem: Abdominal wall abscess Active Problems: ESRD (end stage renal disease) ([facility]) Obesity, unspecified Gastroesophageal reflux disease without esophagitis Resolved Problems: Fatigue Metabolic acidosis Hyperphosphatemia Elevated lipase Peritonitis associated with peritoneal dialysis ([facility]) Procedures Performed: Chief Complaint: Abdominal Pain Hospital [...] been seen at dialysis clinic in the [facility] a sample of pertioneal dialysate and di scharge from neear the peritoneal dialyisis cath was taken and sent for culturesr, the patie nt was then sent over to [facility] and admitted, patient was initially [...] low-attenuation, favoring adenoma. Electronically signed by Ray rodgers 01/22/2017 11:55 PM Us Abdomen Limited 01/23/2017 [...] Around Incision Site) Santos Chi MD [address] [facility] [address] [place] [address] On 02/03/2017 as scheduled [facility] [address] [place] [address] Schedule an appointment as soon as possible [...] Refills: 0 Commonly known as: NORVASC ergocalciferol 48975 UNITS capsule Refills: 0 Commonly known as: [...] Date of Service: 01/25/17 1258 Status: Signed Reading Recovery Teacher: Adonis Bonner RN (Registered Nurse) Patient said [...] Filed: 01/25/17 1429 Date of Service: 01/25/17 4636 Status: Signed Reading Recovery Teacher: Kashif Reyna MD (Physician) PCP : [facility] LOS: 2 days Ramona Oconnor is a [...] 10/25/15 showed normal sized kidneys. 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 Primary choreography director is Dr. Chi Essential HTN Anemia of [...] completed later after rounds. Dictation software, was [employer] used which may contain error for similar [...] 01/25/17922 Date of Service: 01/25/17922 Status: Signed Reading Recovery Teacher: Adenike Howard RPH (Pharmacist) Day 4 Vanco Tx. Todays labs: Scr= 14.5, WBC= 11.09 Pharmacist; ADENIKE HOWARD 01/25/2017 9:23 AM onver patric Transaction, Provider Unknown - 01/25/2017 7:31 AM PDT Progress Notes by Maria Del Rosario Weston RN at 01/25/17 0731 Author: Maria Del Rosario Weston RN Service: (none) Author Type: Registered Nurse Filed: 01/25/17732 Date of Service: 01/25/17730 Status: Signed Reading Recovery Teacher: Maria Del Rosario Weston RN (Registered Nurse) [...] 01/25/17508 Date of Service: 01/25/17508 Status: Signed Reading Recovery Teacher: Shelli Bustos RPH (Pharmacist) Clinical Pharmacy Note: [...] 01/24/171938 Date of Service: 01/24/171937 Status: Signed Reading Recovery Teacher: Marixa Juarez RN (Registered Nurse) New IV [...] 01/24/171852 Date of Service: 01/24/171850 Status: Signed Reading Recovery Teacher: Marixa Juarez RN (Registered Nurse) IV infiltrated [...] 01/24/171826 Date of Service: 01/24/171823 Status: Signed Reading Recovery Teacher: Marixa Juarez RN (Registered Nurse) VS stable [...] Notes by Shad Ba MD at 01/24/17 4890 Author: Shad Ba MD Service: Hospitalist Author Type: Physician Filed: 01/24/171758 Date of Service: 01/24/171753 Status: Signed Reading Recovery Teacher: Shad Ba MD (Physician) [facility] Service: Hospitalist Progress Note Hospital Day: [...] acidosis Hyperphosphatemia ESRD (end stage renal disease) ([facility]) Elevated lipase Obesity, unspecified Gastroesophageal reflux disease without esophagitis Peritonitis associated with peritoneal dialysis ([facility]) ASSESSMENT & PLAN Patient Active Hospital Problem [...] the problem. ESRD (end stage renal disease) ([facility]) (01/23/2017) Assessment: On peritoneal dialysis Plan: Dr. [...] patient and motherat bedside, on chart review, high school coordinator rdinating care with other providers, formulating a plan of care and management as well as Co mputerized Physician Care Taker. Dictation software, [employer] used which may contain error for similar [...] 1242 Date of Service: 01/24/171240 Status: Signed Reading Recovery Teacher: Medina Gifford RPH (Pharmacist) Clinical Pharmacy Note: [...] Service: Nephrology Author Type: Physician Filed: 01/24/17 8213 Date of Service: 01/24/17 1202 Status: Signed Reading Recovery Teacher: Kashif Reyna MD (Physician) PCP : [facility] LOS: 1 day Ramona Oconnor is a [...] 10/25/15 showed normal sized kidneys. 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 Primary choreography director is Dr. Chi Essential HTN Anemia of [...] completed later after rounds. Dictation software, was [employer] used which may contain error for similar [...] by LUCILLE Zurita at 01/24/17916 Author: LUCILLE Zurita Service: (none) Author Type: Noteman Filed: 01/24/17924 Date of Service: 01/24/17916 Status: Signed Reading Recovery Teacher: LUCILLE Zurita (Noteman) 01/24/17899 Discharge Planning Evaluation Admitting Diagnosis abd [...] clinical course for needs Patient's PCP is: [facility] Patient's insurance:[employer] Coverage concerns: no concerns Medication [...] 01/23/172240 Date of Service: 01/23/172240 Status: Signed Reading Recovery Teacher: Cedric Saleh RPH (Pharmacist) Day 2 vanco- [...] 01/23/171757 Date of Service: 01/23/171755 Status: Signed Reading Recovery Teacher: Marixa Juarez RN (Registered Nurse) VS stable throughout shift. Pt had 3 episodes of emesis today, IV zofran and IV phenergan given as ordered. Pt remains tired and weak and is c/o RLQ abdominal pain. PRN dilaudid gi oh with relief noted. Culture sent to lab from peritoneal insertion site and dressing ten mosquera by cattle manager. Pt is to have peritoneal dialysis tonight. No other acute changes. Wi ll continue to monitor. Marixa Juarez, RN Shad Lee MD - 01/23/2017 8:00 AM PDTFormatting of this note might be different f rom the original. Progress Notes by Shad Ba MD at 01/23/17 08 Author: Shad Ba MD Service: Hospitalist Author Type: Physician Filed: 01/23/177 Date of Service: 01/23/17799 Status: Signed Reading Recovery Teacher: Shad Ba MD (Physician) [facility] Service: Hospitalist Progress Note Hospital Day: [...] have also left a message for Dr. Solitario of general surgery to see if he needs to drain the abscess after he looks at the CT scan. ESRD (end stage renal disease) ([facility]) (01/23/2017) Assessment: On peritoneal dialysis Plan: Consulted [...] and management as well as Computerized Physician Care Taker. Dictation software, [employer] used which may contain error for similar [...] 01/23/17645 Date of Service: 01/23/17645 Status: Signed Reading Recovery Teacher: Kerri Shvets, RN (Registered Nurse) Patient rested comfortably overnight, vital signs stable, no acute changes to initial admis patric assessment. Pt has pain in right lower quadrant of abdomen; receiving Dilaudid with rel ief x1 dose. Hourly rounding was otherwise uneventful. Unable to complete INSTALLATION TECH med rec at this time as she needs to get med list from her mother. Kerri Fraga RN 01/23/2017 6:46 AM onver patric Transaction, Provider Unknown - 01/23/2017 2:51 AM PDT Pharmacy Note by Shelli Bustos RPH at 01/23/17250 Author: Shelli Bustos RPH Service: Pharmacy Author Type: Pharmacist Filed: 01/23/17250 Date of Service: 01/23/17250 Status: Signed Reading Recovery Teacher: Shelli Bustos RPH (Pharmacist) Clinical Pharmacy Note: [...] 01/23/17241 Date of Service: 01/23/17241 Status: Signed Reading Recovery Teacher: Shelli Bustos RPH (Pharmacist) Clinical Pharmacy Note: [...] | | | | [facility], [address] | | | | | | [place] | | | | | | [address] | | | | + + + + + + | Red Blood | 3.30 (L)Comment: Testing | 3.70 - 5.10 | EXTERNAL | | | Cells | performed at [facility], [address] | M/uL | LAB | | | Counted | [address], | | | | | | [place] [address] | | | | + + + + + + | Hemoglobin | 9.5 (L)Comment: Testing | 11.3 - 15.5 | EXTERNAL | | | | performed at [facility], [address] | g/dL | LAB | | | | [address], | | | | | | [place] [address] | | | | + + + + + + | Hematocrit, | 28.3 (L)Comment: Testing | 34.0 - 46.0 % | EXTERNAL | | | POC | performed at [facility], [address] | | LAB | | | | [address], | | | | | | [place] [address] | | | | + + + + + + | MCV | 85.6Comment: Testing | 80.0 - 100.0 fl | EXTERNAL | | | | performed at [facility], [address] | | LAB | | | [address], | | | | | | [place] [address] | | | | + + + + + + | MCH | 28.6Comment: Testing | 27.0 - 34.0 pg | EXTERNAL | | | | performed at [facility], [address] | | LAB | | | | [address], | | | | | | [place] [address] | | | | + + + + + + | MCHC | 33.4Comment: Testing | 32.0 - 35.5 | EXTERNAL | | | | performed at [facility], [address] | g/dL | LAB | | | | [address], | | | | | | [place] [address] | | | | + + + + + + | RDW-CV | 41.6Comment: Testing | 37 - 53 fl | EXTERNAL | | | | performed at [facility], [address] | | LAB | | | | [address], | | | | | | [place] [address] | | | | + + + + + + | Platelet | 338Comment: Testing | 150 - 400 K/uL | EXTERNAL | | | Count | performed at [facility], [address] | | LAB | | | Plasma | [address], | | | | | | [place] [address] | | | | + + + + + + | MPV | 7.4Comment: Testing | fl | EXTERNAL | | | | performed at [facility], [address] | | LAB | | | | [address], | | | | | | [place] [address] | | | | + + + + + + | Differentia | AUTOMATEDComment: | | EXTERNAL | | | l Type | Testing performed at | | LAB | | | | [facility], [address] | | | | | | [place] | | | | | | [address] | | | | + + + + + + | % Segmented | 72.22Comment: Testing | % | EXTERNAL | | | | performed at [facility], [address] | | LAB | | | Neutrophils | [address], | | | | | | [place] [address] | | | | + + + + + + | % | 15.07Comment: Testing | % | EXTERNAL | | | Lymphocytes | performed at [facility], [address] | | LAB | | | | [address], | | | | | | [place] [address] | | | | + + + + + + | % Monocytes | 8.23Comment: Testing | % | EXTERNAL | | | | performed at [facility], [address] | | LAB | | | | [address], | | | | | | [place] [address] | | | | + + + + + + | % | 3.90Comment: Testing | % | EXTERNAL | | | Eosinophils | performed at [facility], [address] | | LAB | | | | [address], | | | | | | [place] [address] | | | | + + + + + + | % Basophils | 0.58Comment: Testing | % | EXTERNAL | | | | performed at [facility], [address] | | LAB | | | | [address], | | | | | | [place] [address] | | | | + + + + + + | Absolute | 8.01 (H)Comment: Testing | 1.90 - 7.40 | EXTERNAL | | | Segmented | performed at [facility], [address] | K/uL | LAB | | | Neutrophils | [address], | | | | | | [place] [address] | | | | + + + + + + | Absolute | 1.67Comment: Testing | 1.00 - 3.90 | EXTERNAL | | | Lymphocytes | performed at [facility], [address] | K/uL | LAB | | | | [address], | | | | | | [place] [address] | | | | + + + + + + | Absolute | 0.91 (H)Comment: Testing | 0.00 - 0.80 | EXTERNAL | | | Monocytes | performed at [facility], [address] | K/uL | LAB | | | | [address], | | | | | | [place] [address] | | | | + + + + + + | Absolute | 0.43Comment: Testing | 0.00 - 0.50 | EXTERNAL | | | Eosinophils | performed at [facility], [address] | K/uL | LAB | | | [address], | | | | | | [place] [address] | | | | + + + + + + | Absolute | 0.06Comment: Testing | 0.00 - 0.10 | EXTERNAL | | | Basophils | performed at [facility], [address] | K/uL | LAB | | | | [address], | | | | | | [place] [address] | | | | + + + [...] | | | | | [place] [address] | | | | + + + [...] performed at [facility], [address] | | LAB | | | | [address], | | | | | | [place] [address] | | | | + + + [...] | LAB | | | | [address];[place] | | | | | | [address] | | | | + + + [...] | | | Random | performed at [facility];[address] | | LAB | | | | [address];[place], [place] | | | | | | [address] | | | | + + + [...] | | | | | [place] [address] | | | | + + + + + + | K | 3.7Comment: Testing | 3.5 - 4.9 | EXTERNAL | | | | performed at [facility], [address] | mmol/L | LAB | | | | [address], | | | | | | [place] [address] | | | | + + + + + + | Cl | 95 (L)Comment: Testing | 99 - 109 mmol/L | EXTERNAL | | | | performed at [facility], [address] | | LAB | | | [address], | | | | | | [place] [address] | | | | + + + + + + | CO2 | 31Comment: Testing | 23 - 32 mmol/L | EXTERNAL | | | | performed at [facility], [address] | | LAB | | | | [address], | | | | | | [place] [address] | | | | + + + + + + | Anion Gap | 14Comment: Testing | 5 - 20 mmol/L | EXTERNAL | | | | performed at [facility], [address] | | LAB | | | [address], | | | | | | [place] [address] | | | | + + + + + + | Glucose, | 93Comment: Testing | 65 - 99 mg/dL | EXTERNAL | | | Fasting | performed at [facility], [address] | | LAB | | | | [address], | | | | | | [place] [address] | | | | + + + + + + | BUN | 50 (H)Comment: Testing | 8 - 25 mg/dL | EXTERNAL | | | | performed at [facility], [address] | | LAB | | | | [address], | | | | | | [place] [address] | | | | + + + + + + | Creatinine | 14.5 (H)Comment: Testing | 0.50 - 1.00 | EXTERNAL | | | | performed at [facility], [address] | mg/dL | LAB | | | | [address], | | | | | | [place] [address] | | | | + + + + + + | BUN/Creatin | 3Comment: Testing | | EXTERNAL | | | ine Ratio | performed at [facility], [address] | | LAB | | | | [address], | | | | | | [place] [address] | | | | + + + + + + | Calcium | 8.2 (L)Comment: Testing | 8.5 - 10.5 | EXTERNAL | | | | performed at [facility], [address] | mg/dL | LAB | | | | [address], | | | | | | [place] [address] | | | | + + + + + + | Protein, | 6.6Comment: Testing | 6.3 - 8.2 g/dL | EXTERNAL | | | Total | performed at [facility], [address] | | LAB | | | | [address], | | | | | | [place] [address] | | | | + + + + + + | Albumin | 2.0 (L)Comment: Testing | 3.6 - 5.0 g/dL | EXTERNAL | | | | performed at [facility], [address] | | LAB | | | | [address], | | | | | | [place] [address] | | | | + + + + + + | Globulin | 4.6Comment: Testing | 1.3 - 4.9 g/dL | EXTERNAL | | | | performed at [facility], [address] | | LAB | | | | [address], | | | | | | [place] [address] | | | | + + + + + + | A/G Ratio | 0.4 (L)Comment: Testing | 1.0 - 2.4 | EXTERNAL | | | | performed at [facility], [address] | | LAB | | | | [address], | | | | | | [place] [address] | | | | + + + + + + | Bilirubin | 0.3Comment: Testing | 0.1 - 1.5 mg/dL | EXTERNAL | | | Total | performed at [facility], [address] | | LAB | | | | [address], | | | | | | [place] [address] | | | | + + + + + + | ALP, | 66Comment: Testing | 35 - 115 U/L | EXTERNAL | | | External | performed at [facility], [address] | | LAB | | | | [address], | | | | | | [place] [address] | | | | + + + + + + | AST | 6 (L)Comment: Testing | 10 - 45 U/L | EXTERNAL | | | | performed at [facility], [address] | | LAB | | | | [address], | | | | | | [place] [address] | | | | + + + + + + | ALT | 8 (L)Comment: Testing | 10 - 65 U/L | EXTERNAL | | | | performed at [facility], [address] | | LAB | | | | [facility], | | | | | | [place] [address] | | | | + + + [...] W | | | | | | [facility], | | | | | | [place] [address] | | | | + + + [...] | | | | [facility], [address] | | | | | | [place] | | | | | | [address] | | | | + + + + + + | Red Blood | 3.32 (L)Comment: Testing | 3.70 - 5.10 | EXTERNAL | | | Cells | performed at [facility], [address] | M/uL | LAB | | | Counted | [address], | | | | | | [place] [address] | | | | + + + + + + | Hemoglobin | 9.6 (L)Comment: Testing | 11.3 - 15.5 | EXTERNAL | | | | performed at [facility], [address] | g/dL | LAB | | | | [address], | | | | | | [place] [address] | | | | + + + + + + | Hematocrit, | 28.2 (L)Comment: Testing | 34.0 - 46.0 % | EXTERNAL | | | POC | performed at [facility], [address] | | LAB | | | | [address], | | | | | | [place] [address] | | | | + + + + + + | MCV | 85.0Comment: Testing | 80.0 - 100.0 fl | EXTERNAL | | | | performed at [facility], [address] | | LAB | | | | [address], | | | | | | [place] [address] | | | | + + + + + + | MCH | 28.8Comment: Testing | 27.0 - 34.0 pg | EXTERNAL | | | | performed at [facility], [address] | | LAB | | | | [address], | | | | | | [place] [address] | | | | + + + + + + | MCHC | 33.9Comment: Testing | 32.0 - 35.5 | EXTERNAL | | | | performed at [facility], [address] | g/dL | LAB | | | | [address], | | | | | | [place] [address] | | | | + + + + + + | RDW-CV | 41.1Comment: Testing | 37 - 53 fl | EXTERNAL | | | | performed at [facility], [address] | | LAB | | | | [address], | | | | | | [place] [address] | | | | + + + + + + | Platelet | 346Comment: Testing | 150 - 400 K/uL | EXTERNAL | | | Count | performed at [facility], [address] | | LAB | | | Plasma | [address], | | | | | | [place] [address] | | | | + + + + + + | MPV | 7.6Comment: Testing | fl | EXTERNAL | | | | performed at [facility], [address] | | LAB | | | | [address], | | | | | | [place] [address] | | | | + + + + + + | Differentia | AUTOMATEDComment: | | EXTERNAL | | | l Type | Testing performed at | | LAB | | | | [facility], [address], [place], [place] | | | | | | [address] | | | | + + + + + + | % Segmented | 75.80Comment: Testing | % | EXTERNAL | | | | performed at [facility], [address] | | LAB | | | Neutrophils | [address], | | | | | | [place] [address] | | | | + + + + + + | % | 12.67Comment: Testing | % | EXTERNAL | | | Lymphocytes | performed at [facility], [address] | | LAB | | | | [address], | | | | | | [place] [address] | | | | + + + + + + | % Monocytes | 7.61Comment: Testing | % | EXTERNAL | | | | performed at [facility], [address] | | LAB | | | | [address], | | | | | | [place] [address] | | | | + + + + + + | % | 3.38Comment: Testing | % | EXTERNAL | | | Eosinophils | performed at [facility], [address] | | LAB | | | | [address], | | | | | | [place] [address] | | | | + + + + + + | % Basophils | 0.54Comment: Testing | % | EXTERNAL | | | | performed at [facility], [address] | | LAB | | | | [address], | | | | | | [place] [address] | | | | + + + + + + | Absolute | 9.49 (H)Comment: Testing | 1.90 - 7.40 | EXTERNAL | | | Segmented | performed at [facility], [address] | K/uL | LAB | | | Neutrophils | [address], | | | | | | [place] [address] | | | | + + + + + + | Absolute | 1.59Comment: Testing | 1.00 - 3.90 | EXTERNAL | | | Lymphocytes | performed at [facility], [address] | K/uL | LAB | | | | [address], | | | | | | [place] [address] | | | | + + + + + + | Absolute | 0.95 (H)Comment: Testing | 0.00 - 0.80 | EXTERNAL | | | Monocytes | performed at [facility], [address] | K/uL | LAB | | | | [address], | | | | | | [place] [address] | | | | + + + + + + | Absolute | 0.42Comment: Testing | 0.00 - 0.50 | EXTERNAL | | | Eosinophils | performed at [facility], [address] | K/uL | LAB | | | | [address], | | | | | | [place] [address] | | | | + + + + + + | Absolute | 0.07Comment: Testing | 0.00 - 0.10 | EXTERNAL | | | Basophils | performed at [facility], [address] | K/uL | LAB | | | | [address], | | | | | | [place] [address] | | | | + + + [...] performed at [facility], [address] | | LAB | | | | [address], | | | | | | [place] [address] | | | | + + + [...] performed at [facility], [address] | | LAB | | | | [address], | | | | | | [place] [address] | | | | + + + [...] | LAB | | | | [address];[place], [place] | | | | | | [address] | | | | + + + [...] | | | | | [place] [address] | | | | + + + + + + | K | 3.9Comment: Testing | 3.5 - 4.9 | EXTERNAL | | | | performed at [facility], [address] | mmol/L | LAB | | | | [address], | | | | | | [place] [address] | | | | + + + + + + | Cl | 96 (L)Comment: Testing | 99 - 109 mmol/L | EXTERNAL | | | | performed at [facility], [address] | | LAB | | | | [address], | | | | | | [place] [address] | | | | + + + + + + | CO2 | 30Comment: Testing | 23 - 32 mmol/L | EXTERNAL | | | | performed at [facility], [address] | | LAB | | | | [address], | | | | | | [place] [address] | | | | + + + + + + | Anion Gap | 16Comment: Testing | 5 - 20 mmol/L | EXTERNAL | | | | performed at [facility], [address] | | LAB | | | | [address], | | | | | | [place] [address] | | | | + + + + + + | Glucose, | 101 (H)Comment: Testing | 65 - 99 mg/dL | EXTERNAL | | | Fasting | performed at [facility], [address] | | LAB | | | | [address], | | | | | | [place] [address] | | | | + + + + + + | BUN | 57 (H)Comment: Testing | 8 - 25 mg/dL | EXTERNAL | | | | performed at [facility], [address] | | LAB | | | | [address], | | | | | | [place] [address] | | | | + + + + + + | Creatinine | 15.3 (H)Comment: Testing | 0.50 - 1.00 | EXTERNAL | | | | performed at [facility], [address] | mg/dL | LAB | | | | [address], | | | | | | [place] [address] | | | | + + + + + + | BUN/Creatin | 4Comment: Testing | | EXTERNAL | | | ine Ratio | performed at [facility], [address] | | LAB | | | | [address], | | | | | | [place] [address] | | | | + + + + + + | Calcium | 8.7Comment: Testing | 8.5 - 10.5 | EXTERNAL | | | | performed at [facility], [address] | mg/dL | LAB | | | | [address], | | | | | | [place] [address] | | | | + + + + + + | Protein, | 6.6Comment: Testing | 6.3 - 8.2 g/dL | EXTERNAL | | | Total | performed at [facility], [address] | | LAB | | | | [address], | | | | | | [place] [address] | | | | + + + + + + | Albumin | 2.0 (L)Comment: Testing | 3.6 - 5.0 g/dL | EXTERNAL | | | | performed at [facility], [address] | | LAB | | | | [address], | | | | | | [place] [address] | | | | + + + + + + | Globulin | 4.6Comment: Testing | 1.3 - 4.9 g/dL | EXTERNAL | | | | performed at [facility], [address] | | LAB | | | | [address], | | | | | | [place] [address] | | | | + + + + + + | A/G Ratio | 0.4 (L)Comment: Testing | 1.0 - 2.4 | EXTERNAL | | | | performed at [facility], [address] | | LAB | | | | [address], | | | | | | [place] [address] | | | | + + + + + + | Bilirubin | 0.4Comment: Testing | 0.1 - 1.5 mg/dL | EXTERNAL | | | Total | performed at [facility], [address] | | LAB | | | | [address], | | | | | | [place] [address] | | | | + + + + + + | ALP, | 73Comment: Testing | 35 - 115 U/L | EXTERNAL | | | External | performed at [facility], [address] | | LAB | | | | [address], | | | | | | [place] [address] | | | | + + + + + + | AST | 7 (L)Comment: Testing | 10 - 45 U/L | EXTERNAL | | | | performed at [facility], [address] | | LAB | | | | [address], | | | | | | [place] [address] | | | | + + + + + + | ALT | 9 (L)Comment: Testing | 10 - 65 U/L | EXTERNAL | | | | performed at [facility], [address] | | LAB | | | | [address], | | | | | | [place] [address] | | | | + + + [...] | | | | | | [address], | | | | | | [place] [address] | | | | + + + [...] | | | Random | performed at [facility];[address] | | LAB | | | | [address];[place], [place] | | | | | | [address] | | | | + + + [...] LAB | | PERITONEAL Testing performed at [facility];[address] [place] [address];[place] [address] | | | COLOR COLORLESS Testing | | | performed at [facility];[address] [facility];[place] [address] APPEARANCE | | | HAZY Testing performed at | | | [facility];[address] [facility];[place] [address] RBC'S | | | <[phone] Testing performed at [facility];[address] [facility] | | | Blvd;[place] [address] TOTAL NUCLEATED CELLS 426 | | | Testing performed at [facility];[address];[place] [address] | | | NEUTROPHILS 81 Testing | | | performed at [facility];[address] [facility];[place] [address] LYMPHOCYTES | | | 5 Testing performed at | | | [facility];[address] [place] [address];[place] [address] MONOCYTES/MACROPHAGES | | | 14 Testing performed at [facility] [address] | | | [address];[place] [address] CELLS COUNTED | | | 100 Testing performed at [facility];[address] [facility];[place], [place] | | | [address] | | + + + + +---------+ [...] K/uL | LAB | | | | [facility], [address] | | | | | | [place] | | | | | | [address] | | | | + + + + + + | Red Blood | 3.58 (L)Comment: Testing | 3.70 - 5.10 | EXTERNAL | | | Cells | performed at [facility], [address] | M/uL | LAB | | | Counted | [address], | | | | | | [place] [address] | | | | + + + + + + | Hemoglobin | 10.0 (L)Comment: Testing | 11.3 - 15.5 | EXTERNAL | | | | performed at [facility], [address] | g/dL | LAB | | | | [address], | | | | | | [place] [address] | | | | + + + + + + | Hematocrit, | 31.0 (L)Comment: Testing | 34.0 - 46.0 % | EXTERNAL | | | POC | performed at [facility], [address] | | LAB | | | | [address], | | | | | | [place] [address] | | | | + + + + + + | MCV | 86.5Comment: Testing | 80.0 - 100.0 fl | EXTERNAL | | | | performed at [facility], [address] | | LAB | | | | [address], | | | | | | [place] [address] | | | | + + + + + + | MCH | 28.0Comment: Testing | 27.0 - 34.0 pg | EXTERNAL | | | | performed at [facility], [address] | | LAB | | | | [address], | | | | | | [place] [address] | | | | + + + + + + | MCHC | 32.4Comment: Testing | 32.0 - 35.5 | EXTERNAL | | | | performed at [facility], [address] | g/dL | LAB | | | | [address], | | | | | | [place] [address] | | | | + + + + + + | RDW-CV | 43.3Comment: Testing | 37 - 53 fl | EXTERNAL | | | | performed at [facility], [address] | | LAB | | | | [address], | | | | | | [place] [address] | | | | + + + + + + | Platelet | 334Comment: Testing | 150 - 400 K/uL | EXTERNAL | | | Count | performed at [facility], [address] | | LAB | | | Plasma | [address], | | | | | | [place] [address] | | | | + + + + + + | MPV | 7.5Comment: Testing | fl | EXTERNAL | | | | performed at [facility], [address] | | LAB | | | | [address], | | | | | | [place] [address] | | | | + + + + + + | Differentia | AUTOMATEDComment: | | EXTERNAL | | | l Type | Testing performed at | | LAB | | | | [facility], [address] | | | | | | [place] | | | | | | [address] | | | | + + + + + + | % Segmented | 76.93Comment: Testing | % | EXTERNAL | | | | performed at [facility], [address] | | LAB | | | Neutrophils | [address], | | | | | | [place] [address] | | | | + + + + + + | % | 11.69Comment: Testing | % | EXTERNAL | | | Lymphocytes | performed at [facility], [address] | | LAB | | | | [address], | | | | | | [place] [address] | | | | + + + + + + | % Monocytes | 7.51Comment: Testing | % | EXTERNAL | | | | performed at [facility], [address] | | LAB | | | | [address], | | | | | | [place] [address] | | | | + + + + + + | % | 3.48Comment: Testing | % | EXTERNAL | | | Eosinophils | performed at [facility], [address] | | LAB | | | | [address], | | | | | | [place] [address] | | | | + + + + + + | % Basophils | 0.39Comment: Testing | % | EXTERNAL | | | | performed at [facility], [address] | | LAB | | | | [address], | | | | | | [place] [address] | | | | + + + + + + | Absolute | 10.77 (H)Comment: | 1.90 - 7.40 | EXTERNAL | | | Segmented | Testing performed at | K/uL | LAB | | | Neutrophils | [facility], [address] | | | | | | [place] | | | | | | [address] | | | | + + + + + + | Absolute | 1.64Comment: Testing | 1.00 - 3.90 | EXTERNAL | | | Lymphocytes | performed at [facility], [address] | K/uL | LAB | | | | [address], | | | | | | [place] [address] | | | | + + + + + + | Absolute | 1.05 (H)Comment: Testing | 0.00 - 0.80 | EXTERNAL | | | Monocytes | performed at [facility], [address] | K/uL | LAB | | | | [address], | | | | | | [place] [address] | | | | + + + + + + | Absolute | 0.49Comment: Testing | 0.00 - 0.50 | EXTERNAL | | | Eosinophils | performed at [facility], [address] | K/uL | LAB | | | | [address], | | | | | | [place] [address] | | | | + + + + + + | Absolute | 0.05Comment: Testing | 0.00 - 0.10 | EXTERNAL | | | Basophils | performed at [facility], [address] | K/uL | LAB | | | | [address], | | | | | | [place] [address] | | | | + + + [...] performed at [facility], [address] | uIU/mL | LAB | | | | [address], | | | | | | [place] [address] | | | | + + + [...] performed at [facility], [address] | | LAB | | | | [address], | | | | | | [place] [address] | | | | + + + [...] | | | | | [place] [address] | | | | + + + [...] | LAB | | | | [address] [facility];[place], [place] | | | | | | [address] | | | | + + + [...] | | | | | [place] [address] | | | | + + + + + + | K | 4.2Comment: Testing | 3.5 - 4.9 | EXTERNAL | | | | performed at [facility], [address] | mmol/L | LAB | | | | [address], | | | | | | [place] [address] | | | | + + + + + + | Cl | 95 (L)Comment: Testing | 99 - 109 mmol/L | EXTERNAL | | | | performed at [facility], [address] | | LAB | | | | [address], | | | | | | [place] [address] | | | | + + + + + + | CO2 | 27Comment: Testing | 23 - 32 mmol/L | EXTERNAL | | | | performed at [facility], [address] | | LAB | | | | [address], | | | | | | [place] [address] | | | | + + + + + + | Anion Gap | 21 (H)Comment: Testing | 5 - 20 mmol/L | EXTERNAL | | | | performed at [facility], [address] | | LAB | | | | [address], | | | | | | [place] [address] | | | | + + + + + + | Glucose, | 100 (H)Comment: Testing | 65 - 99 mg/dL | EXTERNAL | | | Fasting | performed at [facility], [address] | | LAB | | | | [address], | | | | | | [place] [address] | | | | + + + + + + | BUN | 61 (H)Comment: Testing | 8 - 25 mg/dL | EXTERNAL | | | | performed at [facility], [address] | | LAB | | | | [address], | | | | | | [place] [address] | | | | + + + + + + | Creatinine | 16.7 (H)Comment: Testing | 0.50 - 1.00 | EXTERNAL | | | | performed at [facility], [address] | mg/dL | LAB | | | | [address], | | | | | | [place] [address] | | | | + + + + + + | BUN/Creatin | 4Comment: Testing | | EXTERNAL | | | ine Ratio | performed at [facility], [address] | | LAB | | | | [address], | | | | | | [place] [address] | | | | + + + + + + | Calcium | 9.2Comment: Testing | 8.5 - 10.5 | EXTERNAL | | | | performed at [facility], [address] | mg/dL | LAB | | | | [address], | | | | | | [place] [address] | | | | + + + + + + | Protein, | 6.9Comment: Testing | 6.3 - 8.2 g/dL | EXTERNAL | | | Total | performed at [facility], [address] | | LAB | | | | [address], | | | | | | [place] [address] | | | | + + + + + + | Albumin | 2.2 (L)Comment: Testing | 3.6 - 5.0 g/dL | EXTERNAL | | | | performed at [facility], [address] | | LAB | | | | [address], | | | | | | [place] [address] | | | | + + + + + + | Globulin | 4.7Comment: Testing | 1.3 - 4.9 g/dL | EXTERNAL | | | | performed at [facility], [address] | | LAB | | | | [address], | | | | | | [place] [address] | | | | + + + + + + | A/G Ratio | 0.5 (L)Comment: Testing | 1.0 - 2.4 | EXTERNAL | | | | performed at [facility], [address] | | LAB | | | | [address], | | | | | | [place] [address] | | | | + + + + + + | Bilirubin | 0.4Comment: Testing | 0.1 - 1.5 mg/dL | EXTERNAL | | | Total | performed at [facility], [address] | | LAB | | | | [address], | | | | | | [place] [address] | | | | + + + + + + | ALP, | 77Comment: Testing | 35 - 115 U/L | EXTERNAL | | | External | performed at [facility], [address] | | LAB | | | | [address], | | | | | | [place] [address] | | | | + + + + + + | AST | 5 (L)Comment: Testing | 10 - 45 U/L | EXTERNAL | | | | performed at [facility], [address] | | LAB | | | | [address], | | | | | | [place] [address] | | | | + + + + + + | ALT | 8 (L)Comment: Testing | 10 - 65 U/L | EXTERNAL | | | | performed at [facility], [address] | | LAB | | | | [address], | | | | | | [place] [address] | | | | + + + [...] Any, | | | | | | [place] [address] | | | | + + + [...] at [facility];[address] | mmol/L | LAB | | | | [address];[place], [place] | | | | | | [address] | | | | + + [...] [place] | | | | | | [address] | | | | + + + + + + | Clarity | HAZYComment: Testing | | EXTERNAL | | | | performed at [facility];[address] | | LAB | | | | [address];[place] | | | | | | [address] | | | | + + + + + + | Specific | 1.013Comment: Testing | 1.002 - 1.030 | EXTERNAL | | | [place], | performed at [facility];[address] | | LAB | | | Urine | [address];[place] | | | | | | [address] | | | | + + + + + + | Leukocyte | SMALL (A)Comment: | | EXTERNAL | | | Esterase, | Testing performed at | | LAB | | | Urine | [facility];[address] | [address];[place] [address] | | | | + + + + + + | Nitrite, | NEGATIVEComment: Testing | | EXTERNAL | | | Urine | performed at [facility];[address] | | LAB | | | | [address];[place] | | | | | | [address] | | | | + + + + + + | Urobilinoge | NORMALComment: Testing | mg/dL | EXTERNAL | | | n, Urine | performed at [facility];[address] | | LAB | | | | [address];[place] | | | | | | [address] | | | | + + + + + + | Protein, | >500 (A)Comment: Testing | mg/dL | EXTERNAL | | | Urine | performed at [facility];[address] | | LAB | | | | [address];[place] | | | | | | [address] | | | | + + + + + + | pH, Urine | 9.0 (H)Comment: Testing | 5.0 - 8.0 | EXTERNAL | | | | performed at [facility];[address] | | LAB | | | | [address];[place] | | | | | | [address] | | | | + + + + + + | Blood, | SMALL (A)Comment: | | EXTERNAL | | | Urine | Testing performed at | | LAB | | | | [facility];[address] | | | | | | [address];[place] [address] | | | | + + + + + + | Ketones | NEGATIVEComment: Testing | mg/dL | EXTERNAL | | | | performed at [facility];[address] | | LAB | | | | [address];[place] | | | | | | [address] | | | | + + + + + + | Bilirubin, | NEGATIVEComment: Testing | | EXTERNAL | | | Urine | performed at [facility];[address] | | LAB | | | | [address];[place] | | | | | | [address] | | | | + + + + + + | Glucose, | 150 (A)Comment: Testing | mg/dL | EXTERNAL | | | Urine | performed at [facility];[address] | | LAB | | | | [address];[place] | | | | | | [address] | | | | + + + + + + | WBC, UA | 50-100Comment: Testing | 0 - 5 /hpf | EXTERNAL | | | | performed at [facility];[address] | | LAB | | | | [address];[place] | | | | | | [address] | | | | + + + + + + | RBC, UA | 11-15Comment: Testing | 0 - 5 /hpf | EXTERNAL | | | | performed at [facility];[address] | | LAB | | | | [address];[place] | | | | | | [address] | | | | + + + + + + | Bacteria, | 1+ (A)Comment: Testing | | EXTERNAL | | | UA | performed at [facility];[address] | | LAB | | | | [address];[place] | | | | | | [address] | | | | + + + + + + | Epithelial | 50-100Comment: Testing | /lpf | EXTERNAL | | | Cells | performed at [facility];[address] | | LAB | | | | [address];[place] | | | | | | [address] | | | | + + + + + + | Mucus, | 1+Comment: Testing | | EXTERNAL | | | Urine | performed at [facility];[address] | | LAB | | | | [address];[place], [place] | | | | | | [address] | | | | + + + [...] | performed at [facility];[address] [place] [address];[place] [address] | | + + + + +---------+ [...] K/uL | LAB | | | | [facility];[address] | [address];[place] [address] | | | | + + + + + + | Red Blood | 3.82Comment: Testing | 3.70 - 5.10 | EXTERNAL | | | Cells | performed at [facility];[address] | M/uL | LAB | | | Counted | [address];[place] | | | | | | [address] | | | | + + + + + + | Hemoglobin | 11.0 (L)Comment: Testing | 11.3 - 15.5 | EXTERNAL | | | | performed at [facility];888 | g/dL | LAB | | | | [address];[place] | | | | | | [address] | | | | + + + + + + | Hematocrit, | 32.8 (L)Comment: Testing | 34.0 - 46.0 % | EXTERNAL | | | POC | performed at [facility];[address] | | LAB | | | | [address];[place] | | | | | | [address] | | | | + + + + + + | MCV | 85.9Comment: Testing | 80.0 - 100.0 fl | EXTERNAL | | | | performed at [facility];[address] | | LAB | | | | [address];[place] | | | | | | [address] | | | | + + + + + + | MCH | 28.9Comment: Testing | 27.0 - 34.0 pg | EXTERNAL | | | | performed at [facility];[address] | | LAB | | | | [address];[place] | | | | | | [address] | | | | + + + + + + | MCHC | 33.6Comment: Testing | 32.0 - 35.5 | EXTERNAL | | | | performed at [facility];888 | g/dL | LAB | | | | [address];[place] | | | | | | [address] | | | | + + + + + + | RDW-CV | 43.8Comment: Testing | 37 - 53 fl | EXTERNAL | | | | performed at [facility];[address] | | LAB | | | | [address];[place] | | | | | | [address] | | | | + + + + + + | Platelet | 319Comment: Testing | 150 - 400 K/uL | EXTERNAL | | | Count | performed at [facility];[address] | | LAB | | | Plasma | [address];[place] | | | | | | [address] | | | | + + + + + + | MPV | 7.0Comment: Testing | fl | EXTERNAL | | | | performed at [facility];[address] | | LAB | | | | [address];[place] | | | | | | [address] | | | | + + + + + + | Differentia | AUTOMATEDComment: | | EXTERNAL | | | l Type | Testing performed at | | LAB | | | | [facility];[address];[place] [address] | | | | + + + + + + | % Segmented | 79.91Comment: Testing | % | EXTERNAL | | | | performed at [facility];[address] | | LAB | | | Neutrophils | [address];[place] | | | | | | [address] | | | | + + + + + + | % | 10.43Comment: Testing | % | EXTERNAL | | | Lymphocytes | performed at [facility];[address] | | LAB | | | | [address];[place] | | | | | | [address] | | | | + + + + + + | % Monocytes | 6.18Comment: Testing | % | EXTERNAL | | | | performed at [facility];[address] | | LAB | | | | [address];[place] | | | | | | [address] | | | | + + + + + + | % | 3.05Comment: Testing | % | EXTERNAL | | | Eosinophils | performed at [facility];[address] | | LAB | | | | [address];[place] | | | | | | [address] | | | | + + + + + + | % Basophils | 0.43Comment: Testing | % | EXTERNAL | | | | performed at [facility];[address] | | LAB | | | | [address];[place] | | | | | | [address] | | | | + + + + + + | Absolute | 13.26 (H)Comment: | 1.90 - 7.40 | EXTERNAL | | | Segmented | Testing performed at | K/uL | LAB | | | Neutrophils | [facility];[address];[place] [address] | | | | + + + + + + | Absolute | 1.73Comment: Testing | 1.00 - 3.90 | EXTERNAL | | | Lymphocytes | performed at [facility];[address] | K/uL | LAB | | | | [address];[place] | | | | | | [address] | | | | + + + + + + | Absolute | 1.03 (H)Comment: Testing | 0.00 - 0.80 | EXTERNAL | | | Monocytes | performed at [facility];[address] | K/uL | LAB | | | | [address];[place] | | | | | | [address] | | | | + + + + + + | Absolute | 0.51 (H)Comment: Testing | 0.00 - 0.50 | EXTERNAL | | | Eosinophils | performed at [facility];[address] | K/uL | LAB | | | | [address];[place] | | | | | | [address] | | | | + + + + + + | Absolute | 0.07Comment: Testing | 0.00 - 0.10 | EXTERNAL | | | Basophils | performed at [facility];[address] | K/uL | LAB | | | | [address];[place] | | | | | | [address] | | | | + + + [...] [place] | | | | | | [address] | | | | + + + [...] | | | | | performed at [facility];[address] | | | | | | [address];[place], [place] | | | | | | [address] | | | | + + + [...] [address];[place] [address] | | | | + + + [...] at [facility];888 | mmol/L | LAB | | | | [address];[place] | | | | | | [address] | | | | + + + + + + | K | 4.0Comment: Testing | 3.5 - 4.9 | EXTERNAL | | | | performed at [facility];888 | mmol/L | LAB | | | | [address];[place] | | | | | | [address] | | | | + + + + + + | Cl | 94 (L)Comment: Testing | 99 - 109 mmol/L | EXTERNAL | | | | performed at [facility];[address] | | LAB | | | | [address];[place] | | | | | | [address] | | | | + + + + + + | CO2 | 27Comment: Testing | 23 - 32 mmol/L | EXTERNAL | | | | performed at [facility];[address] | | LAB | | | | [address];[place] | | | | | | [address] | | | | + + + + + + | Anion Gap | 19Comment: Testing | 5 - 20 mmol/L | EXTERNAL | | | | performed at [facility];[address] | | LAB | | | | [address];[place] | | | | | | [address] | | | | + + + + + + | Glucose, | 104 (H)Comment: Testing | 65 - 99 mg/dL | EXTERNAL | | | Fasting | performed at [facility];[address] | | LAB | | | | [address];[place] | | | | | | [address] | | | | + + + + + + | BUN | 62 (H)Comment: Testing | 8 - 25 mg/dL | EXTERNAL | | | | performed at [facility];[address] | | LAB | | | | [address];[place] | | | | | | [address] | | | | + + + + + + | Creatinine | 16 (H)Comment: Testing | 0.50 - 1.00 | EXTERNAL | | | | performed at [facility];888 | mg/dL | LAB | | | | [address];[place] | | | | | | [address] | | | | + + + + + + | BUN/Creatin | 4Comment: Testing | | EXTERNAL | | | ine Ratio | performed at [facility];[address] | | LAB | | | | [address];[place] | | | | | | [address] | | | | + + + + + + | Calcium | 9.7Comment: Testing | 8.5 - 10.5 | EXTERNAL | | | | performed at [facility];888 | mg/dL | LAB | | | | [address];[place] | | | | | | [address] | | | | + + + + + + | Protein, | 7.9Comment: Testing | 6.3 - 8.2 g/dL | EXTERNAL | | | Total | performed at [facility];[address] | | LAB | | | | [address];[place] | | | | | | [address] | | | | + + + + + + | Albumin | 2.4 (L)Comment: Testing | 3.6 - 5.0 g/dL | EXTERNAL | | | | performed at [facility];888 | | LAB | | | | [address];[place] | | | | | | [address] | | | | + + + + + + | Globulin | 5.5 (H)Comment: Testing | 1.3 - 4.9 g/dL | EXTERNAL | | | | performed at [facility];888 | | LAB | | | | [address];[place] | | | | | | [address] | | | | + + + + + + | A/G Ratio | 0.4 (L)Comment: Testing | 1.0 - 2.4 | EXTERNAL | | | | performed at [facility];888 | | LAB | | | | [address];[place] | | | | | | [address] | | | | + + + + + + | Bilirubin | 0.3Comment: Testing | 0.1 - 1.5 mg/dL | EXTERNAL | | | Total | performed at [facility];888 | | LAB | | | | [address];[place] | | | | | | [address] | | | | + + + + + + | ALP, | 86Comment: Testing | 35 - 115 U/L | EXTERNAL | | | External | performed at [facility];[address] | | LAB | | | | [address];[place] | | | | | | [address] | | | | + + + + + + | AST | 5 (L)Comment: Testing | 10 - 45 U/L | EXTERNAL | | | | performed at [facility];[address] | | LAB | | | | [address];[place] | | | | | | [address] | | | | + + + + + + | ALT | 9 (L)Comment: Testing | 10 - 65 U/L | EXTERNAL | | | | performed at [facility];[address] | | LAB | | | | [address];[place] | | | | | | [address] | | | | + + + [...] [address] | [address];[place] [address] | | | | + + + [...]
--- OUTSIDE RECORDS SUMMARY | ~2020-04-05 | XMS | Encounter Summary ---
Demographics + + + | Address | [address] | | | [place] [address] | + + + | Home Phone [...] [place], [place] | | | | | [address] | | + + + + + | Lydia Palm | ECON | [place], [place] | | | | | [address] | | + + + + + | melinda METZ" | ECON | [place], [place] | | | [place]ba | | [address] | | + + + + + | Jose C Oconnor | ECON | [place] | | | | | [place] | | | | | [address] | | + + + + + Care Team Providers + +------+ + | Care Bone Char Kiln Operator Name | Role | Phone | [...] + + | 08/24/ | Clinical | [facility] | Nidhi Whitaker, | Surgical wound | | 2019 | Support | VASCULAR SURGERY | RN | dehiscence, | | | | [address] | | subsequent encounter | | | | [address] [place] | | (Primary Dx) | | | | [address] | | | | | | [phone] | | | +--------+ + + + [...] wound care 3 times a week at [facility] wound clinic. Patient is dissappointment regarding outcome but stated understanding. She will follow up with Dr Pederson on 09/02/2019 at [facility]. documented in this encounter Plan of Treatment Not on filedocumented as of this encounter Visit Diagnoses + + | Diagnosis | + + | Surgical wound dehiscence, subsequent encounter - Primary | + + documented in this encounter
--- OUTSIDE RECORDS SUMMARY | ~2020-04-05 | XMS | Encounter Summary ---
Demographics + + + | Address | [address] | | | [place] [address] | + + + | Home Phone [...] [place], [place] | | | | | [address] | | + + + + + | Lydia Palm | ECON | [place], [place] | | | | | [address] | | + + + + + | melinda METZ" | ECON | [place], [place] | | | reba | | [address] | | + + + + + | Jose C Oconnor | ECON | [address] | | | | | [place] | | | | | [address] | | + + + + + Care Team Providers + +------+ + | Care Robotic Maintenance Technician Name | Role | Phone [...] | | | | | | | ([facility]) | | | | | | | Procedures | | | | | | | [place] | | | | | | | [...] + + | 12/16/ | Surgery | [facility] | Qasim Pederson MD | INSERTION AV FISTULA | | 2019 | | [facility] | [address] | or GRAFT CREATION | | | | OPERATING ROOM [address] | [place], [place] | | | | | [address] AGUILERAVD | [address] | | | | | [place], [place] | | | | | | [address] | | | | | | [phone] | | | +--------+---------+ + + + [...] cuts, scrapes, or blows. Date Last Reviewed: 11/10/[id number] [employer]. [address] [place] [address], [place] [address]. All righ ts reserved. This information is [...] service will answer evenings and weekends) 2. [facility] Anesthesia 24-hour toll-free call line: [phone] (follow instructions careful ly if forwarded to [...] | | | | performed at [facility] | | LABORATORY | | | | [address];[place], [place] | | | | | | [address] | | | | + + + + + + + + | Specimen | + + | Blood | + + + + + + + | Performing | Address | City/State/Zipcode | Phone Number | | Organization | | | | + + + + + | [facility] | [address] | [place] [address] | [phone] | + + + + + CBC [...] | | Absolute | performed at [facility];[address] | K/uL | LABORATORY | | | | [address];[place], [place] | | | | | | [address] | | | | + + + + + + + + | Specimen | + + | Blood | + + + + + + + | Performing | Address | City/State/Zipcode | Phone Number | | Organization | | | | + + + + + | [facility] | [address] | [place] [address] | [phone] | + + + + + Basic [...] 6 (L)Comment: GFR <60: | >60 | [facility] | | | GFR | CHRONIC [...] | | | | | | MDRD IDKS traceable | | | | | | equation.Testing | | | | | | performed at [facility] | | | | | | [facility];[place], [place] | | | | | | [address] | | | | + + + + + + + + | Specimen | + + | Blood | + + + + + + + | Performing | Address | City/State/Zipcode | Phone Number | | Organization | | | | + + + + + | [facility] | [address] | [place] [address] | [phone] | + + + + + documented in this encounter Visit Diagnoses + + | Diagnosis | + + | ESRD on dialysis ([facility]) End stage renal disease | + + documented in this encounter Admitting Diagnoses + + | Diagnosis | + + | ESRD on dialysis ([facility]) End stage renal [...] | | | | | | longer, zftqjf-ioc-dirwa use of | | | | | [...] | | | | Mixture PRN, Starting [facility] 12/16/19 | | | | [...] One week or longer, | | | qfhaio-jfi-htvmh use of at least | | | [...] PST | | | | | Starting [facility] 12/16/19 at 1500, | | [...] 4:50 | | | | | Starting [facility] 12/16/19 at 1500, For | [...]
--- OUTSIDE RECORDS SUMMARY | ~2020-04-05 | XMS | Encounter Summary ---
Demographics + + + | Address | [address] | | | [place] [address] | + + + | Home Phone [...] [place], [place] | | | | | [address] | | + + + + + | Lydia Palm | ECON | [place], [place] | | | | | [address] | | + + + + + | melinda METZ" | ECON | [place], [place] | | | [place] | | [address] | | + + + + + | Jose C Oconnor | ECON | [address] [place] | | | | | [place] | | | | | [address] | | + + + + + Care Team Providers + +------+ + | Care Salvage Inspector Name | Role | Phone | [...] + + | 09/23/ | Telephone | [facility] | Marixa Mendoza, | Wound | | 2019 | | VASCULAR SURGERY | [address] | | | | | [address] | | | | | | [place] | | | | | | [address] | | | | | | [phone] | | | +--------+ + + + [...]
--- OUTSIDE RECORDS SUMMARY | ~2020-04-05 | XMS | Encounter Summary ---
Demographics + + + | Address | [address] | | | [place] [address] | + + + | Home Phone [...] | Author | [facility] | | | [...] [place], [place] | | | | | [address] | | + + + + + | Lydia Palm | ECON | [place], [place] | | | | | [address] | | + + + + + | melinda METZ" | ECON | [place], [place] | | | [place] | | [address] | | + + + + + | Jose C Oconnor | ECON | [address] | | | | | [place] | | | | | [address] | | + + + + + Care Team Providers + +------+ + | Care Supervisor Screen Printing Name | Role | Phone | + [...] | daily thru | [address] | [place] [address] | | | | | February 23, | [place], [place] | Phone: | | | | | Peritonitis | [address] | [phone] | | | | | Procedures | Phone: | Fax: | | | | | [place] | [phone] | [phone] | | | | | [place], | Fax: | | | | | | [address] [place] | [phone] | | | | | | IV [...] + + | 02/21/ | Hospital | [facility] | Unknown, | Peritonitis | | 2019 | Encounter | [facility] OP [facility]FUSION | MD Iris Kinney | associated with | | | | [address] | [phone] | peritoneal dialysis, | | | | [place] | | initial encounter | | | | [address] | | (HCC) (Primary Dx) | | | | [phone] | | | +--------+ + + + [...]
--- OUTSIDE RECORDS SUMMARY | ~2020-04-05 | XMS | Encounter Summary ---
Demographics + + + | Address | [address] | | | [place] [address] | + + + | Home Phone [...] [place], [place] | | | | | [address] | | + + + + + | Lydia Palm | ECON | [place], [place] | | | | | [address] | | + + + + + | melinda METZ" | ECON | [place], [place] | | | [place] | | [address] | | + + + + + | Jose C Oconnor | ECON | [address] | | | | | [place] | | | | | [address] | | + + + + + Care Team Providers + +------+ + | Care Core Machine Tender Name | Role | Phone [...] + + | 01/03/ | Telephone | [facility] | Samira Dixon, | Surgery Appointment | | 2020 | | VASCULAR SURGERY | RN | | | | | [address] | | | | | | E [place], [place] | | | | | | [address] | | | | | | [phone] | | | +--------+ + + + [...]
--- OUTSIDE RECORDS SUMMARY | ~2020-04-05 | XMS | Encounter Summary ---
Demographics + + + | Address | [address] | | | [place] [address] | + + + | Home Phone [...] [place], [place] | | | | | [address] | | + + + + + | Lydia Palm | ECON | [place], [place] | | | | | [address] | | + + + + + | melinda METZ" | ECON | [place], [place] | | | [place] | | [address] | | + + + + + | Jose C Oconnor | ECON | [address] | | | | | [place] | | | | | [address] | | + + + + + Care Team Providers + +------+ + | Care Pets Salesperson Name | Role | Phone | [...] | | | | | | | ([facility]) | | | | [...] + + | 01/10/ | Anesthesia | [facility] | Nat Smalls MD | | | 2020 | [facility] | [address] | | | | | OPERATING ROOM [address] | [place] [address] | | | | | [facility] | [phone] | | | | | [place], [place] | | | | | | [address] | | | | | | [phone] | | | +--------+ + + + [...] +----+---+ + + | | 1 | [place] | | | | 0 | 43-degrees [...] 01/11/20 1354 by | | eral | gaov-ofy-iecigr catheter system; | Alyce Morales RN | [...]
--- OUTSIDE RECORDS SUMMARY | ~2020-04-05 | XMS | Encounter Summary ---
Demographics + + + | Address | [address] | | | [place] [address] | + + + | Home Phone [...] [place], [place] | | | | | [address] | | + + + + + | Lydia Palm | ECON | [place], [place] | | | | | [address] | | + + + + + | melinda METZ" | ECON | [place], [place] | | | [place] | | [address] | | + + + + + | Jose C Oconnor | ECON | [place] [place] | | | | | [place] | | | | | [address] | | + + + + + Care Team Providers + +------+ + | Care Drywall Stripper Helper Name | Role | Phone | + +------+ + | No, Physician | PCP | Unavailable | + +------+ + Encounter Details +--------+ + + + + | Date | Type | Department | Care Team | Description | +--------+ + + + + | 08/24/ | Prep for | [facility] | Qasim Pederson MD | Infection of | | 2019 | Procedure | VASCULAR SURGERY | [address] | arteriovenous | | | | [address] | [facility] [place] | dialysis fistula, | | | | [facility] [place] | [address] | subsequent encounter | | | | [address] | | (Primary Dx); ESRD | | | | [phone] | | on hemodialysis | | | [...]
--- OUTSIDE RECORDS SUMMARY | ~2020-04-05 | XMS | Encounter Summary ---
Demographics + + + | Address | [address] | | | [place] [address] | + + + | Home Phone [...] [place], [place] | | | | | [address] | | + + + + + | Lydia Palm | ECON | [place], [place] | | | | | [address] | | + + + + + | melinda METZ" | ECON | [place], [place] | | | [place] | | [address] | | + + + + + | Jose C Oconnor | ECON | [address] [place] | | | | | [place] | | | | | [address] | | + + + + + Care Team Providers + +------+ + | Care Paint Tinter Name | Role | Phone | + +------+ + | Juan F Whitley DO | PCP | | + +------+ + Encounter Details +--------+ + + + + | Date | Type | Department | Care Team | Description | +--------+ + + + + | 03/16/ | Hospital | [facility] | Salvador Ruiz, | Abdominal pain, | | 2018 - | Encounter | [facility] | [address] | unspecified | | | | CARE FLOOR [address] | [place] [address] | abdominal location; | | 03/19/ | | [address] | [phone] | Hypotension, | | 2018 | | [place], [place] | | unspecified | | | | [address] | | hypotension type; | | | | [phone] | | Chronic kidney | | | [...] Date of Service: 03/19/18 1522 Status: Signed Ice Crusher: Arias Singh MD (Physician) Related Notes: Original Note by Arias Singh MD (Physician) filed at 03/19/18 1541 [facility] Service: Hospitalist Discharge Summary Date of Admission: 03/16/2018 Date of Discharge: 03/19/18 Discharge Provider: Arias Singh MD Treatment Team: Consulting Physician: Lois Richmond MD Consulting Physician: Fiona Rutledge MD Consulting Physician: Andres Mejia MD Admitting Provider: Salvador Ruiz MD Discharge Diagnoses: Principal Problem: Acute [...] hydrocodone/acetaminophen. She was instructed to contact her trapper animal or return back to the emergency department [...] Procedure: ESOPHAGOGASTRODUODENOSCOPY; Surgeon: Beena Peters MD; Location: [facility]; Service: Gastroenterology; Laterality: N/A; PERITONEAL CATHETER INSERTION N/A 10/28/2015 Procedure: LAPAROSCOPIC - PERITONEAL DIALYSIS CATH INSERTION; Surgeon: Mundo Ramos MD; Lo cation: [facility]; Service: Vascular; Laterality: [...] t Taking at Unknown time ergocalciferol (DRISDOL) 78829 UNITS capsule Take 50,000 Units by mouth [...] lb 11.2 oz) (03/18 2336) Physical Exam Constitutional: She is oriented to [...] Value Units Date/Time FLUID CULT W/GRAM STAIN [[id number]] Collected: 03/17/18919 Specimen: Peritoneal Fluid Updated: 03/19/18 1156 Specimen Description PERITONEAL FLUID GRAM STAIN NO CELLS OR ORGANISMS SEEN CULTURE NO GROWTH 2 DAYS Blood Culture Set 2 [[id number]] Collected: 03/16/181925 Specimen: Blood from Blood, peripheral draw Updated: 03/18/18725 Specimen Description BLOOD, PERIPHERAL DRAW SPECIAL REQUESTS LH CULTURE NO GROWTH 2 DAYS Blood Culture Set 1 [[id number]] Collected: 03/16/181914 Specimen: Blood from Blood, peripheral draw Updated: 03/18/18725 Specimen Description BLOOD, PERIPHERAL DRAW SPECIAL REQUESTS RAC CULTURE NO GROWTH 2 DAYS Body Fluid Cell Count [[id number]] Collected: 03/17/18919 Updated: 03/17/181948 FLUID TYPE PERITONEAL [...] Number of Visits Requested: 1 Follow up: [facility] [address] [place] [address] In 1 week Rosamaria Baron MD [address] [facility] [address] [facility] [address] Schedule an appointment as soon as possible [...] Refills: 0 Commonly known as: NORVASC ergocalciferol 89113 units capsule Refills: 0 Commonly known as: [...] Progress Notes by Vandana Kemp RN at 03/19/181550 Author: Vandana Kemp RN Service: Nephrology Author Type: Registered Nurse Filed: 03/19/18 0011 Date of Service: 03/19/181550 Status: Signed Ice Crusher: Vandana Kemp RN (Registered Nurse) Pt is [...] Filed: 03/19/18 1530 Date of Service: 03/19/18 152 Status: Signed Ice Crusher: [place] Mack RN (Registered Nurse) 03/19/18 1500 [...] Filed: 03/19/18 1146 Date of Service: 03/19/18 110 Status: Signed Ice Crusher: Lois Richmond MD (Physician) [facility] Service: Infectious Disease Progress Note [...] gastritis, possible gastroparesis She was admitted to [facility] from 03/04- with presentation of sudden onset [...] one out of 4 bottles only. MR [place] nasal PCR was negative. 03/07 blood cultures [...] showed the patient was tachycardic. Dr Iris Mejai, on-call for nephrology had been consulted. ER [...] [place]ina to the hospitalist service. Dr. Rutledge, tacking stitch remover, was consulted overnight because of the transient [...] Service: (none) Author Type: Registered Nurse Filed: 03/19/18630 Date of Service: 03/19/18628 Status: Signed Ice Crusher: Salome Garcia RN (Registered Nurse) No acute changes. Underwent peritoneal dialysis overnight. VSS; required only one dose of PRN [place] for pain. No episodes of nausea or emesis. No further concerns identified. Alexis l continue to monitor. 03/19/18 6:31 AM Salome Garcia RN Arias Arguelles MD - 03/18/2018 4:37 PM PDT Progress Notes by Arias Singh MD at 03/18/18 7777 Author: Arias Singh MD Service: Hospitalist Author Type: Physician Filed: 03/18/18 1708 Date of Service: 03/18/18 163 Status: Signed Ice Crusher: Arias Singh MD (Physician) [facility] Service: Hospitalist Progress Note Hospital [...] lb 13.6 oz) (03/18 700) Physical Exam Constitutional: She appears well-developed and [...] Date of Service: 03/18/18 0856 Status: Signed Ice Crusher: Lois Richmond MD (Physician) [facility] Service: Infectious Disease Progress Note [...] gastritis, possible gastroparesis She was admitted to [facility] from 03/04- with presentation of sudden onset [...] [place] to the hospitalist service. Dr. Rutledge, tacking stitch remover, was consulted overnight because of the transient [...] Management by S[place]id Mack RN at 03/17/18 1990 Author: S[place] Mack RN Service: (none) Author Type: Registered Nurse Filed: 03/17/18 1503 Date of Service: 03/17/18 6532 Status: Signed Ice Crusher: [place] Mack RN (Registered Nurse) 03/17/18 6440 Discharge Planning Evaluation Admitting Diagnosis abdominal pain Readmission No Living Arrangements Spouse/significant other Type of Residence Private residence Independent with ADL's Yes Independent with Mobility Yes Mental Status Oriented Anticipated Discharge Plan Post Acute Care Needs None at this time Plan communicated to patient/family Yes Resources Financial concerns No Transportation issues No Patient/Family concerns No Prescription Plan Yes Name of Pharmacy [facility] Previous home health equipment No Vascular access device Yes (PD catheter) Anticipated Disposition Facility Type Home Met with Ramona and discussed discharge planning, Pt is a 38 y.o., female who is independent and lives with her in [place]. She doesn't use DME but does peritoneal dialysis a t home. Patient's PCP is:[facility] Patient's insurance:[employer]/Medicare Coverage concerns: none Medication coverage/concerns: yes/no Community resources utilized / needed:Does peritoneal dialysis at home and goes to [facility] in [place] for PD support. Assistance in transportation: family Identification of any specific education / training: none Barriers to Discharge / Alternative housing needed: none Anticipated DCP: home [place] Mack Arias Arguelles MD - 03/17/2018 8:58 AM PDT Progress Notes by Arias Singh MD at 03/17/18857 Author: Arias Singh MD Service: Hospitalist Author Type: Physician Filed: 03/17/1827 Date of Service: 03/17/18857 Status: Signed Ice Crusher: Arias Singh MD (Physician) [facility] Service: Hospitalist Progress Note Hospital [...] Progress Notes by Drew Renae RPH at 03/17/18347 Author: Drew Renae RPH Service: Pharmacy Author Type: Pharmacist Filed: 03/17/18347 Date of Service: 03/17/18347 Status: Signed Ice Crusher: Drew Renae RPH (Pharmacist) Notw ccl 6.1ml/min meds reviewed [facility] pharmacy will follow [facility] 0348 docume nted in this encounter Plan of [...] EXTERNAL | | | | performed at [facility], [address] | | LAB | | | | [address], | | | | | | [place] [address] | | | | + + + [...] Campus, | | | | | | [place] [address] | | | | + + + [...] | | | | | performed at [facility], [address] | | | | | | [address], | | | | | | [place] [address] | | | | + + + [...] | | | | performed at [facility];[address] | | LAB | | | | [address];[place], [place] | | | | | | [address] | | | | + + + [...] 100 | | | Testing performed at [facility];[address] [place] [address];[place] [address] | | + + + + +---------+ [...] | | | | | | [facility];[address] [place] [address] | | | | | | [facility];[place] [address] | | | | + + + [...] at | | | | | | [address], [address] | | | | | | [place] | | | | | | [address] | | | | + + [...] EXTERNAL | | | | performed at [facility], [address] | | LAB | | | | [address], | | | | | | [place] [address] | | | | + + + [...] EXTERNAL | | | | performed at [facility], [address] | | LAB | | | | [address], | | | | | | [place] [address] | | | | + + + [...] EXTERNAL | | | | performed at [facility], [address] | | LAB | [...] | | | | | | at [facility], [address] | | | | | | [address], | | | | | | [place] [address] | | | | + + + [...] | | | | performed at [facility];[address] | mmol/L | LAB | | | | [address];[place], [place] | | | | | | [address] | | | | + + + [...] | | | PM | performed at [facility], [address] | ug/dL | LAB | | | | [address], | | | | | | [place] [address] | | | | + + + [...] (500), | | | | | | avid editor Rashel Polanco | | | | | | Rogelio (123) on 03/17/2018 | | | | | | 1:17:24 AM | | | | + + + + + + + + | Specimen | + + | | + + + + + | Narrative | Performed At | + + + | Historically converted procedure from [facility] | EXTERNAL LAB | + + + [...] Conversion - 06/23/2019 11:55 AM PDT RAMONA Hutson KELLY years | | FemaleCT ABDOMEN PELVIS W [...] | | | | performed at [facility];[address] | mmol/L | LAB | | | | [address];[place], [place] | | | | | | [address] | | | | + + + [...] | | | | | at [facility];[address] [place] [address] | | | | | | [facility];[place] [address] | | | | + + + [...] | | | | performed at [facility];[address] | | | | | | [address];[place] | | | | | | [address] | | | | + + + [...] | | | QUALITATIVE | performed at [facility];[address] | | LAB | | | | [address];[place], [place] | | | | | | [address] | | | | + + + [...] | | | | performed at [facility];[address] | | LAB | | | | [address];[place] | | | | | | [address] | | | | + + + [...] | | | | performed at [facility] | | LAB | | | | [address] [facility];[place], [place] | | | | | | [address] | | | | + + + [...] | | | | performed at [facility];[address] | | LAB | | | | [address];[place] | | | | | | [address] | | | | + + + [...] | | | | | at [facility];[address] [place] [address] | | | | | | [facility];[place] [address] | | | | + + + [...]
--- OUTSIDE RECORDS SUMMARY | ~2020-04-05 | XMS | Encounter Summary ---
Demographics + + + | Address | [address] | | | [place] [address] | + + + | Home Phone [...] [place], [place] | | | | | [address] | | + + + + + | Lydia Palm | ECON | [place], [place] | | | | | [address] | | + + + + + | melinda METZ" | ECON | [place], [place] | | | [place] | | [address] | | + + + + + | Jose C Oconnor | ECON | [address] | | | | | [place] | | | | | [address] | | + + + + + Care Team Providers + +------+ + | Care Material Reclaimer Name | Role | Phone | + [...] + + | 07/06/ | Clinical | [facility] | Nidhi Whitaker, | ESRD (end stage | | 2019 | Support | VASCULAR SURGERY | RN | renal disease) on | | | | [address] | | dialysis (HCC) | | | | [address] [place] | | (Primary Dx) | | | | [address] | | | | | | [phone] | | | +--------+ + + + [...] sibly soiled. Patient will be scheduled with [facility] once surgery order is received. Since patient is no longer home bound, she will be following up with [facility] at [address]. Patient will call [...]
--- OUTSIDE RECORDS SUMMARY | ~2020-04-05 | XMS | Encounter Summary ---
Demographics + + + | Address | [address] | | | [place] [address] | + + + | Home Phone [...] [place], [place] | | | | | [address] | | + + + + + | Lydia Palm | ECON | [place], [place] | | | | | [address] | | + + + + + | melinda METZ" | ECON | [place], [place] | | | [place] | | [address] | | + + + + + | Jose C Oconnor | ECON | [place] | | | | | [place] | | | | | [address] | | + + + + + Care Team Providers + +------+ + | Care Blanket Weaver Name | Role | Phone | + +------+ + | Juan F Whitley DO | PCP | | + +------+ + Encounter Details +--------+ + + + + | Date | Type | Department | Care Team | Description | +--------+ + + + + | 01/05/ | Hospital | [facility] | Salvador Ruiz, | Diverticulitis; | | 2019 - | Encounter | [facility] [address] | [address] | Hypokalemia; ESRD on | | | | [address] | [place] [address] | peritoneal dialysis | | 01/09/ | | [place], [place] | [phone] | ([facility]); End-stage | | 2018 | | [address] | | renal disease on | | | | [phone] | | peritoneal dialysis | | | [...] Date of Service: 01/09/19 1014 Status: Signed Print Line Inspector: Chris Smart MD (Physician) [facility] Service: Hospitalist Physician Discharge Summary Pt: Ramona Oconnor AGE/SEX: 38 y.o. female ROOM: [address] [place] [address] PCP: JUAN F WHITLEY : 1980 Admit [...] Refills: 0 Commonly known as: NORVASC ergocalciferol 55902 units capsule Refills: 0 Commonly known as: [...] if needed. Follow-[place]: [place] [address] [place] [address]211 In 1 week Santos Chi MD [facility] Yahir Shi [address] [place] [address] [id number] In 1 week Discharge took more than 35 minutes, to include final examination, discussion of admission, and preparation of prescriptions, instructions for ongoing care, follow up and dictation of summary. Signed: CHRIS SMART MD 01/09/2019 10:14 AM Dictation software, re3D, used which may contain error for similar [...] 01/09/191107 Date of Service: 01/09/191106 Status: Signed Print Line Inspector: Britt Hwakins RN (Registered Nurse) Discharge teaching done, instructions [...] Date of Service: 01/09/19 105 Status: Signed Print Line Inspector: Linden Monte MD (Physician) [facility] Service: NEPHROLOGY PD/ Progress Note Ramona Guzmanritchie 38 y.o. [id number] 431/431-[address] [facility]: LOS: 4 days Patient with PMH [...] 12/16/15 showed normal sized kidneys. 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 GERD (gastroesophageal reflux disease) Hypercalcemia 09/07/2017 Hyperphosphatemia 10/28/2015 Hypocalcemia 10/28/2015 Hypokalemia 06/04/2017 Itching 10/28/2015 Metabolic acidosis 10/28/2015 Obesity Peritonitis associated with peritoneal dialysis (HCC) 01/24/2017 Peritonitis due to infected peritoneal dialysis catheter (HCC) 12/08/2018 Secondary hyperparathyroidism (HCC) Uremia 10/28/2015 Past Surgical History Procedure Laterality Date ESOPHAGOGASTRODUODENOSCOPY N/A 09/10/2017 Procedure: ESOPHAGOGASTRODUODENOSCOPY; Surgeon: Beena Peters MD; Location: [facility]; Service: Gastroenterology; Laterality: N/A; PERITONEAL CATHETER INSERTION N/A 10/28/2015 Procedure: LAPAROSCOPIC - PERITONEAL DIALYSIS CATH INSERTION; Surgeon: Mundo Ramos MD; Lo cation: [facility]; Service: Vascular; Laterality: N/A; [...] Table: I/O last 3 completed shifts: In: 90921 [P.O.:1250; I.V.:1154; Other:9969] Out: 12843 [Other:79171] Weight change: -0.6 kg (-1 lb 5.2 [...] VERBALIZ ES UNDERSTANDING LINDEN MONTE MD 01/09/2019 JUNA F QUAEMPTS Seen earlier and charting completed later Dictation software, re3D, used which may contain error for similar [...] 01/09/19705 Date of Service: 01/09/19705 Status: Signed Print Line Inspector: Kathie Harvey RN (Registered Nurse) Patient bed [...] 01/08/191837 Date of Service: 01/08/191837 Status: Signed Print Line Inspector: Judit Mcgraw RN (Registered Nurse) End of shift chart check complete. Judit Mcgraw RN 01/08/2019 6:38 PM Linden Kincaid MD - 01/08/2019 4:59 PM PSTFormatting of this note might be different from the orig inal. Progress Notes by Linden Monte MD at 01/08/191658 Author: Linden Monte MD Service: Nephrology Author Type: Physician Filed: 01/08/19 1811 Date of Service: 01/08/191658 Status: Signed Print Line Inspector: Linden Monte MD (Physician) [facility] Service: NEPHROLOGY PD/ Progress Note Ramona Oconnor 38 y.o. [id number] 431/431-[address] [facility]: LOS: 3 days Patient with PMH [...] 10/25/15 showed normal sized kidneys. 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 GERD (gastroesophageal reflux disease) Hypercalcemia 09/07/2017 Hyperphosphatemia 10/28/2015 Hypocalcemia 10/28/2015 Hypokalemia 06/04/2017 Itching 10/28/2015 Metabolic acidosis 10/28/2015 Obesity Peritonitis associated with peritoneal dialysis (HCC) 01/24/2017 Peritonitis due to infected peritoneal dialysis catheter (HCC) 12/08/2018 Secondary hyperparathyroidism (HCC) Uremia 10/28/2015 Past Surgical History Procedure Laterality Date ESOPHAGOGASTRODUODENOSCOPY N/A 09/10/2017 Procedure: ESOPHAGOGASTRODUODENOSCOPY; Surgeon: Beena Peters MD; Location: [facility]; Service: Gastroenterology; Laterality: N/A; PERITONEAL CATHETER INSERTION N/A 10/28/2015 Procedure: LAPAROSCOPIC - PERITONEAL DIALYSIS CATH INSERTION; Surgeon: Mundo Ramos MD; Lo cation: [facility]; Service: Vascular; Laterality: N/A; [...] Table: I/O last 3 completed shifts: In: 87672 [P.O.:1600; I.V.:1943; Other:] Out: [Other:] Weight change: [...] earlier and charting completed later Dictation software, re3D, used which may contain error for similar sounding words even af ter review. Personal communication requested for any clarification. Portions of my notes may have been carried over for continuity of care. almarko, Chris Chavez MD - 01/08/2019 10:54 AM PST Progress Notes by Chris Smart MD at 01/08/19 1054 Author: Chris Smart MD Service: Hospitalist Author Type: Physician Filed: 01/08/19 6317 Date of Service: 01/08/19 1054 Status: Signed Print Line Inspector: Chris Smart MD (Physician) [facility] Service: Hospitalist Progress Note Pt: Ramona Oconnor AGE/SEX: 38 y.o. female ROOM: [facility]- : 1980 PCP: JUAN F WHITLEY ADMIT [...] 01/08/19 0650 Gross per 24 hour Intake 93306 ml Output 08784 ml Net 1092 ml Patient Vitals for [...] disease) ([facility]) Left lower quadrant pain Hyperphosphatemia Abnormal EKG Elevated troponin Secondary hyperparathyroidism ([facility]) Resolved Problems: * No resolved hospital problems. [...] lower quadrant pain. I will continue w [facility] antibiotics for now. White cell count has improved. Active Problems: Hypokalemia Her potassium level has improved. Gastroesophageal reflux disease without esophagitis I will continue with PPI. ESRD on peritoneal dialysis She is on peritoneal dialysis. Right ovarian cyst Follow-up as outpatient. Anemia in ESRD (end-stage renal disease) ([facility]) I will continue to monitor Abnormal EKG [...] MD, FACP 01/08/2019 10:54 AM Dictation software, re3D, used which may contain error for similar [...] 01/08/19638 Date of Service: 01/08/19638 Status: Signed Print Line Inspector: Felicitas Conklin RN (Registered Nurse) End of shift chart check complete. onver patric Transaction, Provider Unknown - 01/07/2019 6:24 PM PST Nurse Progress Note by Yasmeen Clemons RN at 01/07/191823 Author: Yasmeen Clemons RN Service: (none) Author Type: Registered Nurse Filed: 01/07/191824 Date of Service: 01/07/191823 Status: Signed Print Line Inspector: Yasmeen Clemons RN (Registered Nurse) End of shift review completed. YASMEEN CLEMONS RN 01/07/2019 6:25 PM Linden Kincaid MD - 01/07/2019 6:00 PM PSTFormatting of this note might be different from the orig inal. Progress Notes by Linden Monte MD at 01/07/191799 Author: Linden Monte MD Service: Nephrology Author Type: Physician Filed: 01/12/19 0023 Date of Service: 01/07/19 1800 Status: Signed Print Line Inspector: Linden Monte MD (Physician) [facility] Service: NEPHROLOGY PD/ Progress Note Ramona Oconnor 38 y.o. [id number] 431/431-1 female [facility]: [...] 10/25/15 showed normal sized kidneys. 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 GERD (gastroesophageal reflux disease) Hypercalcemia 09/07/2017 Hyperphosphatemia 10/28/2015 Hypocalcemia 10/28/2015 Hypokalemia 06/04/2017 Itching 10/28/2015 Metabolic acidosis 10/28/2015 Obesity Peritonitis associated with peritoneal dialysis (HCC) 01/24/2017 Peritonitis due to infected peritoneal dialysis catheter (HCC) 12/08/2018 Secondary hyperparathyroidism (HCC) Uremia 10/28/2015 Past Surgical History Procedure Laterality Date ESOPHAGOGASTRODUODENOSCOPY N/A 09/10/2017 Procedure: ESOPHAGOGASTRODUODENOSCOPY; Surgeon: Beena Peters MD; Location: [facility]; Service: Gastroenterology; Laterality: N/A; PERITONEAL CATHETER INSERTION N/A 10/28/2015 Procedure: LAPAROSCOPIC - PERITONEAL DIALYSIS CATH INSERTION; Surgeon: Mundo Ramos MD; Lo cation: [facility]; Service: Vascular; Laterality: N/A; [...] Table: I/O last 3 completed shifts: In: 25756 [P.O.:3150; I.V.:1015; Other:39002] Out: 33254 [Other:75553] Weight change: Examination: Family at bedside APPEARANCE: [...] earlier and charting completed later Dictation software, re3D, used which may contain error for similar sounding words even af ter review. Personal communication requested for any clarification. Portions of my notes may have been carried over for continuity of care. onversion Transaction, Provider Unknown - 01/07/2019 11:59 AM PSTFormatting of this note might be different from t he original. Case Management by Ada Gonzalez RN at 01/07/19 9279 Author: Ada Gonzalez RN Service: (none) Author Type: Registered Nurse Filed: 01/07/19 1309 Date of Service: 01/07/19 1153 Status: Signed Print Line Inspector: Ada Gonzalez RN (Registered Nurse) 01/07/19 7690 Discharge Planning Evaluation Admitting Diagnosis diverticulitis Readmission [...] for diverticulitis. She was just discharged from [facility] on 12/27/18 for peritonitis. Patient has ESRD and get peritoneal dialysis. Denies use of home oxygen, blood thinners, or home care services. She is a member of the [facility]. Her contact there is Lorna at [phone]. She also has a CM with [employer] (Clarita [phone]) Patient's PCP is: JUAN F WHITLEY Patient's insurance: [employer]; Medicare Coverage concerns: no Medication coverage/concerns: no concerns Community resources utilized / needed: TBD Assistance in transportation: spouse to transport Identification of any specific education / training: TBD Barriers to Discharge / Alternative housing needed: not at this time Anticipated DCP: home ADA GONZALEZ RN Case Management [phone] Samir, Chris Chavez MD - 01/07/2019 9:50 AM PST Progress Notes by Chris Smart MD at 01/07/19949 Author: Chris Smart MD Service: Hospitalist Author Type: Physician Filed: 01/07/1954 Date of Service: 01/07/19949 Status: Signed Print Line Inspector: Chris Smart MD (Physician) [facility] Service: Hospitalist Progress Note Pt: Ramona Oconnor AGE/SEX: 38 y.o. female ROOM: [address] [place] [address] : 1980 PCP: JUAN F WHITLEY ADMIT [...] 01/07/19 0645 Gross per 24 hour Intake 42144 ml Output 68196 ml Net 2724 ml Patient Vitals for [...] MD, FACP 01/07/2019 9:50 AM Dictation software, re3D, used which may contain error for similar [...] 01/07/19599 Date of Service: 01/07/19599 Status: Signed Print Line Inspector: Felicitas Conklin RN (Registered Nurse) End of shift chart check complete. onver patric Transaction, Provider Unknown - 01/06/2019 7:12 PM PST Nurse Progress Note by Adonis Bonner RN at 01/06/191911 Author: Adonis Bonner RN Service: Nephrology Author Type: Registered Nurse Filed: 01/06/191913 Date of Service: 01/06/191911 Status: Signed Print Line Inspector: Adonis Bonner RN (Registered Nurse) PER PT [...] 01/06/191801 Date of Service: 01/06/191801 Status: Signed Print Line Inspector: Yasmeen Clemons RN (Registered Nurse) End of shift review completed. YASMEEN CLEMONS RN 01/06/2019 6:02 PM Chris Dawson MD - 01/06/2019 12:07 PM PST Progress Notes by Chris Smart MD at 01/06/191206 Author: Chris Smart MD Service: Hospitalist Author Type: Physician Filed: 01/06/19 1210 Date of Service: 01/06/19 120 Status: Signed Print Line Inspector: Chris Smart MD (Physician) [facility] Service: Hospitalist Progress Note Pt: Ramona Oconnor AGE/SEX: 38 y.o. female ROOM: [address] [place] [address] : 1980 PCP: JUAN F WHITLEY ADMIT [...] 01/06/19 0740 Gross per 24 hour Intake 15134 ml Output 05821 ml Net 425 ml Patient Vitals for [...] MD, FACP 01/06/2019 12:07 PM Dictation software, re3D, used which may contain error for similar [...] Service: Nephrology Author Type: Physician Filed: 01/06/19 1206 Date of Service: 01/06/191202 Status: Signed Print Line Inspector: Linden Monte MD (Physician) [facility] Service: NEPHROLOGY PD/ Progress Note Ramona Oconnor 38 y.o. [id number] 431/431-[address] [facility]: LOS: 1 day Patient with PMH [...] 10/25/15 showed normal sized kidneys. 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 GERD (gastroesophageal reflux disease) Hypercalcemia 09/07/2017 Hyperphosphatemia 10/28/2015 Hypocalcemia 10/28/2015 Hypokalemia 06/04/2017 Itching 10/28/2015 Metabolic acidosis 10/28/2015 Obesity Peritonitis associated with peritoneal dialysis (HCC) 01/24/2017 Peritonitis due to infected peritoneal dialysis catheter (HCC) 12/08/2018 Secondary hyperparathyroidism (HCC) Uremia 10/28/2015 Past Surgical History Procedure Laterality Date ESOPHAGOGASTRODUODENOSCOPY N/A 09/10/2017 Procedure: ESOPHAGOGASTRODUODENOSCOPY; Surgeon: Beena Peters MD; Location: [facility]; Service: Gastroenterology; Laterality: N/A; PERITONEAL CATHETER INSERTION N/A 10/28/2015 Procedure: LAPAROSCOPIC - PERITONEAL DIALYSIS CATH INSERTION; Surgeon: Mundo Ramos MD; Lo cation: [facility]; Service: Vascular; Laterality: N/A; [...] earlier and charting completed later Dictation software, re3D, used which may contain error for similar [...] 01/06/19605 Date of Service: 01/06/19605 Status: Signed Print Line Inspector: Felicitas Conklin RN (Registered Nurse) End of shift chart check complete. onver patric Transaction, Provider Unknown - 01/05/2019 7:01 PM PST Nurse Progress Note by Misty Martínez RN at 01/05/191900 Author: Misty Martínez RN Service: (none) Author Type: Registered Nurse Filed: 01/05/191900 Date of Service: 01/05/191900 Status: Signed Print Line Inspector: Misty Martínez RN (Registered Nurse) Chart check complete. onver patric Transaction, Provider Unknown - 01/05/2019 1:39 PM PST Nurse Progress Note by Misty Martínez RN at 01/05/191338 Author: Misty Martínez RN Service: (none) Author Type: Registered Nurse Filed: 01/05/19 1340 Date of Service: 01/05/191338 Status: Signed Print Line Inspector: Misty Martínez RN (Registered Nurse) Report received [...] 01/05/19619 Date of Service: 01/05/19619 Status: Signed Print Line Inspector: Felicitas Bender RPH (Pharmacist) Clinical Pharmacy Note: [...] 01/05/19618 Date of Service: 01/05/19618 Status: Signed Print Line Inspector: Felicitas Bender RPH (Pharmacist) Zosyn Traditional Infusion [...] requiring PD. Patient is a transfer from [facility] ED. Patient receiv ed Zosyn while at [facility] at 01/04 at 17:54 per transfer paperwork. Due to patient's r enal dysfunction requiring PD, she is not a candidate for extended infusion Zosyn dosing. Will initiate Zosyn 2.25g q12H per renal protocol. Pharmacy will continue monitoring patient for appropriate dosing per renal function. 01/05/2019 6:16 AM Pharmacist: Felicitas Benedr docume nted in this encounter Plan of [...] | | | Basophils | performed at [facility], [address] | [address] | LAB | [...] EXTERNAL | | | | performed at [facility], [address] | | LAB | | | | [address], | | | | | | [place] [address] | | | | + + + [...] | | | | | performed at [facility], [address] | | | | | | [address], | | | | | | [place] [address] | | | | + + + [...] | | | Basophils | performed at [facility], [address] | [address] | LAB | | | | [address], | | | | | | [place] [address] | | | | + + + [...] EXTERNAL | | | | performed at [facility], [address] | | LAB | | | | [address], | | | | | | [place] [address] | | | | + + + [...] | | | | | performed at [facility], [address] | | | | | | [address], | | | | | | [place] [address] | | | | + + + [...] | | | | | performed at [facility], [address] | | | | | | [facility], | | | | | | [place] [address] | | | | + + + [...] | | | | TCL, [address] | | | | | | [place] | | | | | | [address] | | | | + + + [...] EXTERNAL | | | | performed at [facility], [address] | | LAB | | | | [address] [facility], | | | | | | [place] [address] | | | | + + + [...] | | | | | performed at [facility], [address] | | | | | | [facility], | | | | | | [place] [address] | | | | + + + [...] | | | | | | at [facility];[address] [place] [address] | | | | | | [facility];[place] [address] | | | | + + + [...] | | | Basophils | performed at [facility], [address] | K/u[address] | LAB | | | | [facility], | | | | | | [place] [address] | | | | + + + [...] EXTERNAL | | | | performed at [facility], [address] | | LAB | | | | [address], | | | | | | [place] [address] | | | | + + + [...] EXTERNAL | | | | performed at [facility], [address] | | LAB | | | | [address], | | | | | | [place] [address] | | | | + + + [...] EXTERNAL | | | | performed at [facility], [address] | | LAB | | | | [address], | | | | | | [place] [address] | | | | + + + [...] | | | | | | MDRD IDAL traceable | | | | | | equation.Testing | | | | | | performed at [facility], [address] | | | | | | [facility], | | | | | | [place] [address] | | | | + + + [...] | | | | | | at [facility];[address];[place] [address] | | | | + + + [...] | | | | | | at [facility];[address] | | | | | | Any;[place] [address] | | | | + + + [...] | | | performed at [facility];[address] | | | | | | [facility];[place], [place] | | | | | | [address] | | | | + + + [...] | | | Basophils | performed at [facility], [address] | [address] | LAB | | | | [address], | | | | | | [place] [address] | | | | + + + [...] [place] | | | | | | [address] | | | | + + + [...] | | | | | [place] [address] | | | | + + + [...] | | | Calculated | performed at [facility], [address] | | LAB | | | | [address], | | | | | | [place] [address] | | | | + + + [...] | | | | | | MDRD IDAL traceable | | | | | | equation.Testing | | | | | | performed at [facility], [address] | | | | | | [facility], | | | | | | [place] [address] | | | | + + + [...] | | | | | | (500), multimedia editor Collin, | | | | | | Rashel Mercado (123) on | | | | | | 01/05/2019 3:50:25 AM | | | | + + + + + + + + | Specimen | + + | | + + + + + | Narrative | Performed At | + + + | Historically converted procedure from [facility] | EXTERNAL LAB | + + + [...] | | | | | | at [facility];[address];[place] [address] | | | | + + + [...] | | | Basophils | performed at [facility];[address] | [address] | LAB | | | | [address];[place] | | | | | | [address] | | | | + + + [...] | | | performed at [facility];[address] | | | | | | [address];[place] | | | | | | [address] | | | | + + + [...] EXTERNAL | | | | performed at [facility];[address] | | LAB | | | | [address];[place] | | | | | | [address] | | | | + + + [...] | | | performed at [facility] | | | | | | [facility];[place], [place] | | | | | | [address] | | | | + + + [...]
--- OUTSIDE RECORDS SUMMARY | ~2020-04-05 | XMS | Encounter Summary ---
Demographics + + + | Address | [address] | | | [place] [address] | + + + | Home Phone | | + + + | Preferred Language | Unknown | + + + | Marital Status | | + + + | Caodaism Affiliation | Unknown | + + + | Race | Unknown | + + + | Ethnic Group | Unknown | + + + Author + + + | Author | [facility] | | | and [place] | + + + | Organization | [facility] | | | and [place] | + + + | Address | Unknown | + + + | Phone | Unavailable | + + + Support + + + + + | Name | Relationship | Address | Phone | + + + + + | Lyubov Smalls | ECON | [place], [place] | | | | | [address] | | + + + + + | Lydia Palm | ECON | [place], [place] | | | | | [address] | | + + + + + | melinda METZ" | ECON | [place], [place] | | | [place] | | [address] | | + + + + + | Jose C Oconnor | ECON | [place] | | | | | [place] | | | | | [address] | | + + + + + Care Team Providers + +------+ + | Care Pie Bottomer Name | Role | Phone | + [...] + + | 09/23/ | Telephone | [facility] | Marixa Mendoza, | Wound | | 2019 | | VASCULAR SURGERY | 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
--- OUTSIDE RECORDS SUMMARY | ~2020-04-05 | XMS | Encounter Summary ---
Demographics + + + | Address | [address] | | | [place] [address] | + + + | Home Phone [...] [place], [place] | | | | | [address] | | + + + + + | Lydia Palm | ECON | [place], [place] | | | | | [address] | | + + + + + | melinda METZ" | ECON | [place], [place] | | | [place] | | [address] | | + + + + + | Jose C Oconnor | ECON | [place] | | | | | [place] | | | | | [address] | | + + + + + Care Team Providers + +------+ + | Care Assistant Executive Housekeeper Name | Role | Phone | + [...] | daily thru | [address] | [place] [address] | | | | | February 23, | [place], [place] | Phone: | | | | | Peritonitis | [address] | [phone] | | | | | Procedures | Phone: | Fax: | | | | | [place] | [phone] | [phone] | | | | | [place], | Fax: | | | | | | [address] [place] | [phone] | | | | | | IV [...] + + | 02/19/ | Hospital | [facility] | Unknown, | Peritonitis | | 2019 | Encounter | [facility] | MD Iris Kinney | associated with | | | | [address] | [phone] | peritoneal dialysis, | | | | [place] | | initial encounter | | | | [address] | | (HCC) (Primary Dx) | | | | [phone] | | | +--------+ + + + [...]
--- OUTSIDE RECORDS SUMMARY | ~2020-04-05 | XMS | Encounter Summary ---
Demographics + + + | Address | [address] | | | [place] [address] | + + + | Home Phone [...] + | Author | [facility] | | | and [place] | + + + | Organization | [facility] | | | and [place] | + + + | Address | Unknown | + + + | Phone | Unavailable | + + + Support + + + + + | Name | Relationship | Address | Phone | + + + + + | Lyubov Smalls | ECON | [place], [place] | | | | | [address] | | + + + + + | Lydia Palm | ECON | [place], [place] | | | | | [address] | | + + + + + | melinda METZ" | ECON | [place], [place] | | | [place]ba | | [address] | | + + + + + | Jose C Oconnor | ECON | [place] | | | | | [place] | | | | | [address] | | + + + + + Care Team Providers + +------+ + | Care Consulting Hr Professional Name | Role | Phone | + +------+ + | Juan F Whitley DO | PCP | | + +------+ + Encounter Details +--------+ + + + + | Date | Type | Department | Care Team | Description | +--------+ + + + + | 05/26/ | Hospital | [facility] | Qasim Ryan MD | | | 2019 - | Encounter | [facility] | [address] | | | | | CLINICAL DECISION | [address] [place] | | | 05/27/ | | [address] | [address] | | | 2019 | | [place] | | | | | | [address] | | | | | | [phone] | | | +--------+ + + + [...] 1146 Date of Service: 05/27/191144 Status: Signed Theatre Program Director: Karen Charlton RN (Registered Nurse) Discharge instructions discussed with patient and family. All questions and concerns answer ed, in home wound care to follow up. Patient stable at time of discharge. IV removed and ban dage applied. All belongings with patient. Patient discharged via ambulation to private [facility] with family. onver patric Transaction, Provider Unknown - 05/27/2019 7:50 AM PDT Nurse Progress Note by Zhane Ghotra RN at 05/27/19749 Author: Zhane Ghotra RN Service: (none) Author Type: Registered Nurse Filed: 05/27/1936 Date of Service: 05/27/19749 Status: Signed Theatre Program Director: Zhane Ghotra RN (Registered Nurse) Pt awaken [...] 0555 Date of Service: 05/27/19553 Status: Signed Theatre Program Director: Nadege Gupta RN (Registered Nurse) End of shift chart audit complete. onver patric Transaction, Provider Unknown - 05/27/2019 1:40 AM PDT Pharmacy Note by Ryan Anand RPH at 05/27/19139 Author: Ryan Anand RPH Service: Pharmacy Author Type: Pharmacist Filed: 05/27/19139 Date of Service: 05/27/19139 Status: Signed Theatre Program Director: Ryan Anand RPH (Pharmacist) Clinical Pharmacy Note: [...] 05/27/19600 Date of Service: 05/26/192199 Status: Signed Theatre Program Director: Nadege Gupta RN (Registered Nurse) Patient ambulated [...] 05/26/191841 Date of Service: 05/26/191839 Status: Signed Theatre Program Director: Richard Alvarez RN (Registered Nurse) Patient in [...] portable unit 1814> Unable to locate a [facility] portable unit in house per [place]ony [place]. Have [facility] portabl e unit on hand. Was told to contact Dr Ryan for orders to change unit OR would need admission for night until [facility] could deliver portable unit. Call to Dr Ryan. Dr ryan anticipates longer use of unit >7 days and [facility] will not be ideal for patient. Wants [facility] specifically. Order to admit patient. Patient and [...] | | | MDRD [facility] traceable | | | | | | equation.Testing | | | | | | performed at [facility];[address] | | | | | | [facility];[place], [place] | | | | | | [address] | | | | + + + [...] | | | QUALITATIVE | performed at [facility];[address] | | LAB | | | | Maksim Agarwal;[place] | | | | | | [address] | | | | + + + [...] | | | | | performed at [facility];[address] | | | | | | [facility];[place], [place] | | | | | | [address] | | | | + + + [...]
--- OUTSIDE RECORDS SUMMARY | ~2020-04-05 | XMS | Encounter Summary ---
Demographics + + + | Address | [address] | | | [place] [address] | + + + | Home Phone | | + + + | Preferred Language | Unknown | + + + | Marital Status | | + + + | Lutheran Affiliation | Unknown | + + + | Race | Unknown | + + + | Ethnic Group | Unknown | + + + Author + + + | Author | [facility] | | | and [place] | + + + | Organization | [facility] | | | and [place] | + + + | Address | Unknown | + + + | Phone | Unavailable | + + + Support + + + + + | Name | Relationship | Address | Phone | + + + + + | Lyubov Smalls | ECON | [place], [place] | | | | | [address] | | + + + + + | Lydia Palm | ECON | [place], [place] | | | | | [address] | | + + + + + | melinda METZ" | ECON | [place], [place] | | | [place] | | [address] | | + + + + + | Jose C Oconnor | ECON | [place] | | | | | [place] | | | | | [address] | | + + + + + Care Team Providers + +------+ + | Care Model Maker Apprentice Name | Role | Phone | [...] [facility] | | | | | | ([facility]) | [address] | | | | | | Procedures | [place] | | | | | | V[place] Lower | [address] | | | | | | Extremity | Phone: | | | | | | Vein Mapping | [phone] | | | | | | Bilat VAS | Fax: | | | | | | Lower | [phone] | | | | | | Extremity [...] [facility] | | | | | | ([facility]) | [address] | | | | | | Procedures | [place] | | | | | | VAS Arm | [address] | | | | | | Mapping For | Phone: | | | | | | Dialysis | [phone] | | | | | | Right | Fax: | | | | | | | [phone] | | +--------+--------+ + + + + Encounter Details +--------+ + + + + | Date | Type | Department | Care Team | Description | +--------+ + + + + | 12/21/ | Orders Only | [facility] | Kylie Alves DNP | ESRD on dialysis | | 2020 | | VASCULAR SURGERY | [address] | ([facility]) (Primary Dx) | | | | [address] | [place], [place] | | | | | [place], [place] | [address] | | | | | [address] | | | | | | [phone] | | | +--------+ + + + [...]
--- OUTSIDE RECORDS SUMMARY | ~2020-04-05 | XMS | Encounter Summary ---
Demographics + + + | Address | [address] | | | [place] [address] | + + + | Home Phone [...] [place], [place] | | | | | [address] | | + + + + + | Lydia Palm | ECON | [place], [place] | | | | | [address] | | + + + + + | melinda METZ" | ECON | [place], [place] | | | reba | | [address] | | + + + + + | Jose C Oconnor | ECON | [place] | | | | | [place] | | | | | [address] | | + + + + + Care Team Providers + +------+ + | Care Stevedore Hold Name | Role | Phone | + [...] + + + + | 09/03/ | [facility] | [facility] | Lina Longoria, | Postoperative | | 2019 - | Encounter | [facility] [address] | PA-C [address] | infection, | | | | [address] | BLVD [place], [place] | unspecified type, | | 09/08/ | | [place], [place] | [address] | initial encounter | | 2019 | | [phone] | | (Primary Dx); | | | | [phone] | Hilda Edwards, | Infected prosthetic | | | | | DO [address] | vascular graft, | | | | | [place] [address] | initial encounter | | | | | [phone] | (HCC); 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] might be different f rom the original. [facility] Service: Hospitalist [...] for infec medina AV graft in the [facility], who had inititally had L arm AV graft using bovine carotid artery J une 2018, course complicated by wound dehiscence, underwent wound washout and wound vac placement 05/26/19, Taken back to [place] 07/08/19 due to graft being exposed for another washout and replacement of wound vac, which was eventually removed. 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 Pt has appointment for tomorrow with [facility] wound care [place] at 1430. Pt will see dialysis on Friday to restart and get IV ABX. Electronically signed: Florentino Faye RN 09/08/2019 13:03 Nisha Lucio RN - 09/08/2019 10:51 AM [facility] Service: Wound/Ostomy Care Progress Note Patient has upcoming discharged plan. Current plan of care is to have NPWT dressing changed tomorrow at [facility]. This is within the 72 hour time frame. To help minimize pain and maximize healing potential with wound VAC dressing will not be changed today. Patient has H omeVAC in room that will be used when traveling. Versatel given to patient for next dressing change. Two canisters for ActiVAC given. Hospit al VAC D/muna in [facility]. Nisha Weston RN 10:53 09/08/19 Eliazar [...] Kincaid MD - 09/08/2019 9:40 AM PDT [facility] Service: NEPHROLOGY Progress Note Ramona Oconnor 39 y.o. [id number] 401/401-01 female No Physician on file Hospital [...] 10/25/15 showed normal sized kidneys. 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 GERD (gastroesophageal reflux disease) Hypercalcemia 09/07/2017 Hyperphosphatemia [...] STENTS ; Surgeon: Qasim Pederson MD; Location: [facility] MA[facility] AV FISTULA REPAIR Left 09/03/2019 Procedure: Resection of left arm AV graft with wound vac placement; Surgeon: Lexi Posada; Location: [facility] MAIN OR CATHETER REMOVAL 02/04/2019 Procedure: DIALYSIS CATHETER - REMOVAL; Surgeon: Qasim Pederson MD; Location: [facility] MAIN OR ; Service: Vascular; Laterality: N/A; Infected PD catheter removal DEBRIDEMENT Left 07/08/2019 Procedure: LEFT AXILLA WOUND DEBRIDEMENT, WASHOUT AND POSSIBLE WOUND VAC PLACEMENT; Surge on: Qasim Pederson MD; Location: [facility] MAIN OR OTHER SURGICAL HISTORY Left 03/11/2019 AV FISTULA PLACEMENT - Procedure: AV FISTULA; Surgeon: Qasim Pederson MD; Location: [facility]; Service: Vascular; Laterality: Left; OTHER SURGICAL HISTORY HARDWARE PRESENT OTHER SURGICAL HISTORY Right 01/2019 chest wall OTHER SURGICAL HISTORY Left 05/06/2019 AV GRAFT CREATION - Procedure: AV GRAFT CREATION; Surgeon: Qasim Pederson MD; Location: [facility] MAIN OR; Service: Vascular; Laterality: Left; bovine carotid graft OTHER SURGICAL HISTORY Left 05/26/2019 WOUND VAC PLACEMENT/REPLACEMENT - Procedure: WOUND VAC - PLACEMENT - REPLACEMENT; Surgeon : Qasim Pederson MD; Location: [facility] MAIN OR; Service: Vascular; Laterality: Left; PERITONEAL CATHETER PLACEMENT/REMOVAL 10/28/2015 Procedure: LAPAROSCOPIC - PERITONEAL DIALYSIS CATH INSERTION; Surgeon: Mundo Ramos MD; Lo cation: [facility] MAIN OR; Service: Vascular; Laterality: N/A; UPPER GASTROINTESTINAL ENDOSCOPY 09/10/2017 Procedure: ESOPHAGOGASTRODUODENOSCOPY; Surgeon: Beena Peters MD; Location: [facility] ENDOSCOP [facility]; Service: Gastroenterology; Laterality: N/A; [...] and charting completed later Dictation software, [employer], used which may contain error for similar sounding words even af ter review. Personal communication requested for any clarification. Florentino Ling RN - 09/08/2019 9:30 AM PDTCar e Management Follow-Up Readmission Risk: Medium Current Discharge Plan Anticipated Discharge Disposition: home Expected DC Date: Barriers to Discharge: Steps Taken Toward Discharge: Faxed Referral to wound care to [facility] and called Neelima denice patricio has accepted and schedule appointment for 09/09/2019 @ 1430 Next Steps: d/c Community Support Services Current Outpt/Agency/Support Groups: outpatient hemodialysis (specify) Community Agency Name: Kimber Arcosgutierrez [facility] wound clinic Other Resources: Discharge Transportation [...] Kincaid MD - 09/07/2019 11:35 AM PDT [facility] Service: NEPHROLOGY Progress Note Ramona Oconnor 39 y.o. [id number] 401/401-01 female No Physician on file Hospital [...] 10/25/15 showed normal sized kidneys. 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 GERD (gastroesophageal reflux disease) Hypercalcemia 09/07/2017 Hyperphosphatemia [...] STENTS ; Surgeon: Qasim Pederson MD; Location: [facility] MA[facility] OR AV FISTULA REPAIR Left 09/03/2019 Procedure: Resection of left arm AV graft with wound vac placement; Surgeon: Lexi Posada; Location: [facility] MAIN OR CATHETER REMOVAL 02/04/2019 Procedure: DIALYSIS CATHETER - REMOVAL; Surgeon: Qasim Pederson MD; Location: [facility] MAIN OR ; Service: Vascular; Laterality: N/A; Infected PD catheter removal DEBRIDEMENT Left 07/08/2019 Procedure: LEFT AXILLA WOUND DEBRIDEMENT, WASHOUT AND POSSIBLE WOUND VAC PLACEMENT; Surge on: Qasim Pederson MD; Location: [facility] MAIN OR OTHER SURGICAL HISTORY Left 03/11/2019 AV FISTULA PLACEMENT - Procedure: AV FISTULA; Surgeon: Qasim Pederson MD; Location: [facility] OR; Service: Vascular; Laterality: Left; OTHER SURGICAL HISTORY HARDWARE PRESENT OTHER SURGICAL HISTORY Right 01/2019 chest wall OTHER SURGICAL HISTORY Left 05/06/2019 AV GRAFT CREATION - Procedure: AV GRAFT CREATION; Surgeon: Qasim Pederson MD; Location: [facility] MAIN OR; Service: Vascular; Laterality: Left; bovine carotid graft OTHER SURGICAL HISTORY Left 05/26/2019 WOUND VAC PLACEMENT/REPLACEMENT - Procedure: WOUND VAC - PLACEMENT - REPLACEMENT; Surgeon : Qasim Pederson MD; Location: [facility] MAIN OR; Service: Vascular; Laterality: Left; PERITONEAL CATHETER PLACEMENT/REMOVAL 10/28/2015 Procedure: LAPAROSCOPIC - PERITONEAL DIALYSIS CATH INSERTION; Surgeon: Mundo Ramos MD; Lo cation: [facility] MAIN OR; Service: Vascular; Laterality: N/A; UPPER GASTROINTESTINAL ENDOSCOPY 09/10/2017 Procedure: ESOPHAGOGASTRODUODENOSCOPY; Surgeon: Beena Peters MD; Location: [facility]; Service: Gastroenterology; Laterality: N/A; [...] and charting completed later Dictation software, [employer], used which may contain error for similar sounding words even af ter review. Personal communication requested for any clarification. Man Jha PA-C - 09/07/2019 9:03 AM PDTFo rmatting of this note might be different from the original. [facility] Service: Vascular Surgery Progress Note Post-Op Day: [...] 08/26 patient was emergently t ransferred to [facility] for severe bleeding from left [...] CV: No peripheral edema, rate regular SKIN: [place], warm, dry without rash/lesion MS: ROM not [...] Esparza MD - 09/07/2019 8:31 AM PDT [facility] Adult Hospitalist Progress Note Hospital Day: 4 Patient Summary: 39 y/o F with ESRD, HTN, who was admitted for infected AV graft in the [facility], who had initita lly had L [...] for input(s): IRON, TIBC, PCTSAT, FERRITIN, TSH, [id number], FOLATE in the last 168 hours. No [...] least 50% of time was spent in [facility] coordination of care and counseling. All questions [...] Steps Taken Toward Discharge: Followed up on [facility] Home health referral Next Steps: Face to face needs to be written at discharge and faxed to [facility] . Community Support Services Current Outpt/Agency/Support Groups: outpatient hemodialysis (specify) Community Agency Name: Sonia Castillo Other Resources: [facility] Discharge Transportation Transportation Needs: none Notes: CM called and followed up on referral sent yesterday. Fly Patricio received referral and accepting pending face to face home health order at discharge. ADDENDUM: CM discussed with Pt again on home health, Pt states she would like to continue w ound vac dressing changes at [facility] wound care center and has her [...] Lindsey RN - 09/06/2019 12:33 PM PDT [facility] Service: Wound Care NPWT Note Hospital Day: [...] to follow with you. JUJU Saldaña RN [facility] 09/06/19 12:38 Florentino Granados RN - 09/06/2019 11:16 AM PDTCare Management Follow-Up Readmission Risk: Medium Current Discharge Plan Anticipated Discharge Disposition: home Expected DC Date: Barriers to Discharge: Steps Taken Toward Discharge: called [facility] liaison for [facility] and notified her o f IV ABX with HD, sent referral to [facility] for wound Vac care. Next Steps: follow-up with home health on acceptance. Community Support Services Current Outpt/Agency/Support Groups: outpatient hemodialysis (specify) Community Agency Name: Other Resources: Discharge Transportation Transportation Needs: none Notes: Called [facility] liaison for [facility] and notified her of HD with IV ABX, Soo will fol low. I sent referral to [facility]. CM will follow up with for wound va c. Wound Vac pre-authorization form signed and sent to Teodora mclaughlin for [employer]. Electronically signed: Florentino Faye RN 09/06/2019 11:16 Katiana, Cathie Buck MD - 09/06/2019 9:45 AM PDTFormatting of this note might be different from the [facility] Service: Infectious Diseases Progress Note Hospital Day: [...] intact. Follows commands. LABS: MICRO Culture, Blood [[id number]] Collected: 09/03/192015 Order Status: Completed Specimen: Blood Updated: 09/05/19 0521 Special Requests DIALYSIS PORT Special Requests Testing performed at [facility];[address] [place] [address];[place] [address] RESULT NO GROWTH 2 DAYS RESULT Testing performed at [facility], [address] [place] [address] Comment: Testing performed at [facility], [address] [place] [address] Culture, Tissue, Smear, with Anaerobes [[id number]] (Abnormal) Collected: 09/03/191722 Order Status: Completed Specimen: Tissue from Arm, Left Updated: 09/06/19 0915 Special Requests L ARM Special Requests Testing performed at [facility];[address] [place] [address] Gram Stain Result -- 3+ WBC'S SEEN Gram Stain Result -- 4+ GRAM POSITIVE COCCI Gram Stain Result Testing performed at [facility], [address] [place] [address] RESULT --Abnormal 2+ ENTEROCOCCUS FAECALIS Aminoglycosides (except for high-level resistance testing), cephalosporins, clindamycin, an d trimethoprim-sulfamethoxazole may appear active in vitro but they are not effective clinic ally. Abnormal Susceptibility Enterococcus faecalis (1) Antibiotic Interpretation Vitek 2XL Method Status Ampicillin Sensitive SUSCEPTIBLE CORINNE Preliminary Penicillin G Sensitive SUSCEPTIBLE CORINNE Preliminary Levofloxacin Sensitive SUSCEPTIBLE CORINNE Preliminary Vancomycin Sensitive SUSCEPTIBLE CORINNE Preliminary Testing performed at [facility], [address] [place] [address], [place] [address] Culture, Wound, Smear, w/Anaerobe [[id number]] (Abnormal) Collected: 09/03/19 1627 Order Status: Completed Specimen: Tissue from Arm, Left Updated: 09/06/19 0913 Special Requests LT ARM GRAFT SITE Special Requests Testing performed at [facility];[address] [place] [address];[place] [address] Gram Stain Result WBC'S SEEN Gram Stain Result GRAM POSITIVE COCCI Gram Stain Result STAIN PERFORMED ON CYTOSPIN Gram Stain Result Testing performed at [facility];[address] [place], [place] [address] RESULT --Abnormal 2+ ENTEROCOCCUS FAECALIS Aminoglycosides (except for high-level resistance testing), cephalosporins, clindamycin, an d trimethoprim-sulfamethoxazole may appear active in vitro but they are not effective clinic ally. Abnormal Susceptibility Enterococcus faecalis (1) Antibiotic Interpretation Vitek 2XL Method Status Ampicillin Sensitive SUSCEPTIBLE CORINNE Preliminary Penicillin G Sensitive SUSCEPTIBLE CORINNE Preliminary Levofloxacin Sensitive SUSCEPTIBLE CORINNE Preliminary Vancomycin Sensitive SUSCEPTIBLE CORINNE Preliminary Testing performed at [facility], [address] [place] [address] All labs were reviewed.Data: Recent Results (from [...] with HD ---blood cultures NGTD Dictation software, [employer], used which may contain error for similar sounding words even af ter review. Personal communication requested for any clarification. Portions of this chart may have been copied from previous notes for continuity of care purp ose Cathie Marroquin MD Infectious Diseases 09/06/2019 anke, Kaylen cason PA-C - 09/06/2019 9:36 AM PDTFormatting of this note might be different from the or iginal. [facility] Service: Vascular Surgery Progress Note Post-Op Day: [...] 08/26 patient was emergently t ransferred to [facility] for severe bleeding from left [...] CV: No peripheral edema, rate regular SKIN: [place], warm, dry without rash/lesion MS: ROM not [...] Cortez MD - 09/06/2019 8:04 AM PDT [facility] Service: Hospitalist Progress Note Pt: Ramona Oconnor [...] rounding focused on the patient. Dictation software, [employer], used which may contain error for [...] Kincaid MD - 09/05/2019 5:17 PM PDT [facility] Service: NEPHROLOGY Progress Note Ramona Oconnor 39 y.o. [id number] 401/401-01 female No Physician on file Hospital [...] 10/25/15 showed normal sized kidneys. 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 GERD (gastroesophageal reflux disease) Hypercalcemia 09/07/2017 Hyperphosphatemia [...] STENTS ; Surgeon: Qasim Pederson MD; Location: [facility] MAIN OR AV FISTULA REPAIR Left 09/03/2019 Procedure: Resection of left arm AV graft with wound vac placement; Surgeon: Lexi Posada; Location: [facility] MAIN OR CATHETER REMOVAL 02/04/2019 Procedure: DIALYSIS CATHETER - REMOVAL; Surgeon: Qasim Pederson MD; Location: [facility] MA[facility] OR ; Service: Vascular; Laterality: N/A; Infected PD catheter removal DEBRIDEMENT Left 07/08/2019 Procedure: LEFT AXILLA WOUND DEBRIDEMENT, WASHOUT AND POSSIBLE WOUND VAC PLACEMENT; Surge on: Qasim Pederson MD; Location: [facility] MAIN OR OTHER SURGICAL HISTORY Left 03/11/2019 AV FISTULA PLACEMENT - Procedure: AV FISTULA; Surgeon: Qasim Pederson MD; [facility]; Service: Vascular; Laterality: Left; OTHER SURGICAL HISTORY HARDWARE PRESENT OTHER SURGICAL HISTORY Right 01/2019 chest wall OTHER SURGICAL HISTORY Left 05/06/2019 AV GRAFT CREATION - Procedure: AV GRAFT CREATION; Surgeon: Qasim Pederson MD; Location: [facility] MA[facility] OR; Service: Vascular; Laterality: Left; bovine carotid graft OTHER SURGICAL HISTORY Left 05/26/2019 WOUND VAC PLACEMENT/REPLACEMENT - Procedure: WOUND VAC - PLACEMENT - REPLACEMENT; Surgeon : Qasim Pederson MD; Location: [facility] MA[facility] OR; Service: Vascular; Laterality: Left; PERITONEAL CATHETER PLACEMENT/REMOVAL 10/28/2015 Procedure: LAPAROSCOPIC - PERITONEAL DIALYSIS CATH INSERTION; Surgeon: Mundo Ramos MD; Lo cation: [facility] MAIN OR; Service: Vascular; Laterality: N/A; UPPER GASTROINTESTINAL ENDOSCOPY 09/10/2017 Procedure: ESOPHAGOGASTRODUODENOSCOPY; Surgeon: Beena Peters MD; Location: [facility] END[facility]; Service: Gastroenterology; Laterality: N/A; [...] and charting completed later Dictation software, [employer], used which may contain error for [...] might be different from th e original. [facility] Service: Infectious Diseases Progress Note Hospital Day: [...] intact. Follows commands. LABS: MICRO Culture, Blood [[id number]] Collected: 09/03/192015 Order Status: Completed Specimen: Blood Updated: 09/05/19 0521 Special Requests DIALYSIS PORT Special Requests Testing performed at [facility];[address] [place] [address] RESULT NO GROWTH 2 DAYS RESULT Testing performed at [facility], [address] [place] [address] Comment: Testing performed at [facility], [address] [place] [address] Culture, Tissue, Smear, with Anaerobes [[id number]] Collected: 09/03/19 1723 Order Status: Completed Specimen: Tissue from Arm, Left Updated: 09/04/19 1800 Special Requests L ARM Special Requests Testing performed at [facility];[address] [place] [address] Gram Stain Result -- 3+ WBC'S SEEN Gram Stain Result -- 4+ GRAM POSITIVE COCCI RESULT CULTURE IN PROGRESS RESULT Testing performed at [facility], [address] [place] [address] Comment: Testing performed at [facility], [address] [place] [address] Culture, Wound, Smear, w/Anaerobe [[id number]] Collected: 09/03/19 1627 Order Status: Completed Specimen: Tissue from Arm, Left Updated: 09/04/19 6576 Special Requests LT ARM GRAFT SITE Special Requests Testing performed at [facility];[address] [place] [address];[place] [address] Gram Stain Result WBC'S SEEN Gram Stain Result GRAM POSITIVE COCCI Gram Stain Result STAIN PERFORMED ON CYTOSPIN Gram Stain Result Testing performed at [facility];[address] [place] [address] RESULT CULTURE IN PROGRESS RESULT Testing performed at [facility], [address] [place] [address] Comment: Testing performed at [facility], [address] [place] [address] All labs were reviewed.Data: Recent Results (from [...] emotional over some bad news Dictation software, [employer], used which may contain error for similar sounding words even af ter review. Personal communication requested for any clarification. Portions of this chart may have been copied from previous notes for continuity of care purp ose Cathie Marroquin MD Infectious Diseases 09/05/2019 Brandin Kennedy MD - 09/05/2019 8:19 AM PDTFormatting of this note might be different from the or iginal. [facility] Service: Hospitalist Progress Note Pt: Ramona Oconnor [...] vascular graft, initial encounter ASSESSMENT & PLAN JZAZY martinez graft site infection, S/p removal of [...] rounding focused on the patient. Dictation software, [employer], used which may contain error for [...] unable to calm down and very emotional, cinder man pepe on MD chinmay notified and 1 mg ativan given IV. Wound vac in place. Chart check complete Azeb Chamorro RN 09/05/19 @6:26 Linden Kincaid MD - 09/04/2019 7:30 PM PDT [facility] Service: NEPHROLOGY Progress Note Ramona Oconnor 39 y.o. [id number]/401-01 female No Physician on file Hospital [...] 10/25/15 showed normal sized kidneys. 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 GERD (gastroesophageal reflux disease) Hypercalcemia 09/07/2017 Hyperphosphatemia [...] STENTS ; Surgeon: Qasim Pederson MD; Location: [facility] MAIN OR AV FISTULA REPAIR Left 09/03/2019 Procedure: Resection of left arm AV graft with wound vac placement; Surgeon: Lexi Posada; Location: [facility] MAIN OR CATHETER REMOVAL 02/04/2019 Procedure: DIALYSIS CATHETER - REMOVAL; Surgeon: Qasim Pederson MD; Location: [facility] MA[facility] OR ; Service: Vascular; Laterality: N/A; Infected PD catheter removal DEBRIDEMENT Left 07/08/2019 Procedure: LEFT AXILLA WOUND DEBRIDEMENT, WASHOUT AND POSSIBLE WOUND VAC PLACEMENT; Surge on: Qasim Pederson MD; Location: [facility] MAIN OR OTHER SURGICAL HISTORY Left 03/11/2019 AV FISTULA PLACEMENT - Procedure: AV FISTULA; Surgeon: Qasim Pederson MD; Location: [facility]; Service: Vascular; Laterality: Left; OTHER SURGICAL HISTORY HARDWARE PRESENT OTHER SURGICAL HISTORY Right 01/2019 chest wall OTHER SURGICAL HISTORY Left 05/06/2019 AV GRAFT CREATION - Procedure: AV GRAFT CREATION; Surgeon: Qasim Pederson MD; Location: [facility] MA[facility] OR; Service: Vascular; Laterality: Left; bovine carotid graft OTHER SURGICAL HISTORY Left 05/26/2019 WOUND VAC PLACEMENT/REPLACEMENT - Procedure: WOUND VAC - PLACEMENT - REPLACEMENT; Surgeon : Qasim Pederson MD; Location: [facility] MA[facility] OR; Service: Vascular; Laterality: Left; PERITONEAL CATHETER PLACEMENT/REMOVAL 10/28/2015 Procedure: LAPAROSCOPIC - PERITONEAL DIALYSIS CATH INSERTION; Surgeon: Mundo Ramos MD; Lo cation: [facility] MAIN OR; Service: Vascular; Laterality: N/A; UPPER GASTROINTESTINAL ENDOSCOPY 09/10/2017 Procedure: ESOPHAGOGASTRODUODENOSCOPY; Surgeon: Beena Peters MD; Location: [facility]; Service: Gastroenterology; Laterality: N/A; [...] and charting completed later Dictation software, [employer], used which may contain error for [...] Yasmeen Clemons RN 09/04/2019 16:47 Adenike Garsia [facility] - 09/04/2019 10:20 AM PDTClinical Pharmacy Note: [...] might be dif ferent from the original. [facility] Service: Hospitalist Progress Note Pt: Ramona Oconnor AGE/SEX: 39 y.o. female ROOM: [address] [place] [address] : 1980 PCP: No Physician on file [...] rounding focused on the patient. Dictation software, [employer], used which may contain error for [...] Awaiting final culture and sensitivities for appropriate faith doctor antibiotic coverage. Please feel free to call with any questions or concerns. Mundo Ramos MD [facility] - 09/04/2019 12:57 AM PDTFormatting of this [...] Procedure Component Value Units Date/Time Culture, Blood [[id number]] Collected: 09/03/192015 Order Status: Sent Lab Status: In process Updated: 09/03/192217 Specimen: Blood Culture, Tissue, Smear, with Anaerobes [[id number]] Collected: 09/03/19 172 Order Status: Completed Lab Status: Preliminary result Updated: 09/03/19 224 Specimen: Tissue from Arm, Left Special Requests L ARM Special Requests Testing performed at [facility];[address] [place] [address] Gram Stain Result 3+ WBC'S SEEN Gram Stain Result 4+ GRAM POSITIVE COCCI Gram Stain Result Testing performed at [facility], [address] [place] [address] RESULT PENDING Comment: Testing performed at [facility], [address] [place] [address] Culture, Wound, Smear, w/Anaerobe [[id number]] Collected: 09/03/19 1627 Order Status: Completed Lab Status: Preliminary result Updated: 09/03/19 1834 Specimen: Tissue from Arm, Left Special Requests LT ARM GRAFT SITE Gram Stain Result WBC'S SEEN Gram Stain Result GRAM POSITIVE COCCI Gram Stain Result STAIN PERFORMED ON CYTOSPIN Gram Stain Result Testing performed at [facility];[address] [place] [address] RESULT PENDING Comment: Testing performed at [facility], [address] [place] [address] Labs Component Value Date/Time WBC 13.78 (H) [...] and will adjust dose accordingly. RYAN ANAND [facility], Pharmacist 09/04/2019 0:47 Gwyn Gan [facility] - 09/04/2019 12:45 AM PDTClinical Pharmacy Note: [...] Testing | 2.3 - 4.8 mg/dL | [facility] | | | | performed at [facility], [address] | | LABORATORY | | | | [address], | | | | | | [place] [address] | | | | + + + + + + + + | Specimen | + + | Blood | + + + + + + + | Performing | Address | City/State/Zipcode | Phone Number | | Organization | | | | + + + + + | [facility] | [address] | [place] [address] | [phone] | + + + + + Magnesium (09/08/2019 4:47 AM PDT) + + + + + + | Component | Value | Ref Range | Performed | Pathologist | | | | | At | Signature | + + + + + + | Magnesium | 2.9 (H)Comment: Testing | 1.7 - 2.4 mg/dL | [facility] | | | | performed at [facility], [address] | | LABORATORY | | | | [address], | | | | | | [place] [address] | | | | + + + + + + + + | Specimen | + + | Blood | + + + + + + + | Performing | Address | City/State/Zipcode | Phone Number | | Organization | | | | + + + + + | [facility] | [address] | [place] [address] | [phone] | + + + + + Basic [...] | | | | | performed at [facility], [address] | | | | | | [facility], | | | | | | [place] [address] | | | | + + + + + + + + | Specimen | + + | Blood | + + + + + + + | Performing | Address | City/State/Zipcode | Phone Number | | Organization | | | | + + + + + | [facility] | [address] | [place] [address] | [phone] | + + + + + CBC [...] [facility] | | | | performed at [facility], [address] | | LABORATORY | | | | [address], | | | | | | [place] [address] | | | | + + + + + + + + | Specimen | + + | Blood | + + + + + + + | Performing | Address | City/State/Zipcode | Phone Number | | Organization | | | | + + + + + | [facility] | [address] | [place] [address] | [phone] | + + + + + Phosphorus (09/07/2019 4:31 AM PDT) + + + + + + | Component | Value | Ref Range | Performed | Pathologist | | | | | At | Signature | + + + + + + | Phosphorus | 4.1Comment: Testing | 2.3 - 4.8 mg/dL | [facility] | | | | performed at [facility], [address] | | LABORATORY | | | | [address], | | | | | | [place] [address] | | | | + + + + + + + + | Specimen | + + | Blood | + + + + + + + | Performing | Address | City/State/Zipcode | Phone Number | | Organization | | | | + + + + + | [facility] | [address] | [place] [address] | [phone] | + + + + + Magnesium (09/07/2019 4:31 AM PDT) + + + + + + | Component | Value | Ref Range | Performed | Pathologist | | | | | At | Signature | + + + + + + | Magnesium | 2.5 (H)Comment: Testing | 1.7 - 2.4 mg/dL | [facility] | | | | performed at [facility], [address] | | LABORATORY | | | | [address], | | | | | | [place] [address] | | | | + + + + + + + + | Specimen | + + | Blood | + + + + + + + | Performing | Address | City/State/Zipcode | Phone Number | | Organization | | | | + + + + + | [facility] | [address] | [place] [address] | [phone] | + + + + + Basic [...] | | | | | performed at [facility], [address] | | | | | | [address] [facility], | | | | | | [place] [address] | | | | + + + + + + + + | Specimen | + + | Blood | + + + + + + + | Performing | Address | City/State/Zipcode | Phone Number | | Organization | | | | + + + + + | [facility] | [address] | [place] [address] | [phone] | + + + + + CBC [...] [facility] | | | | performed at [facility], [address] | | LABORATORY | | | | [facility], | | | | | | [place] [address] | | | | + + + + + + + + | Specimen | + + | Blood | + + + + + + + | Performing | Address | City/State/Zipcode | Phone Number | | Organization | | | | + + + + + | [facility] | [address] | [place] [address] | [phone] | + + + + + Phosphorus (09/06/2019 5:14 AM PDT) + + + + + + | Component | Value | Ref Range | Performed | Pathologist | | | | | At | Signature | + + + + + + | Phosphorus | 6.3 (H)Comment: Testing | 2.3 - 4.8 mg/dL | [facility] | | | | performed at [facility], [address] | | LABORATORY | | | | [address], | | | | | | [place] [address] | | | | + + + + + + + + | Specimen | + + | Blood | + + + + + + + | Performing | Address | City/State/Zipcode | Phone Number | | Organization | | | | + + + + + | [facility] | [address] | [place] [address] | [phone] | + + + + + Magnesium (09/06/2019 5:14 AM PDT) + + + + + + | Component | Value | Ref Range | Performed | Pathologist | | | | | At | Signature | + + + + + + | Magnesium | 3.2 (H)Comment: Testing | 1.7 - 2.4 mg/dL | [facility] | | | | performed at [facility], [address] | | LABORATORY | | | | [address], | | | | | | [place] [address] | | | | + + + + + + + + | Specimen | + + | Blood | + + + + + + + | Performing | Address | City/State/Zipcode | Phone Number | | Organization | | | | + + + + + | [facility] | [address] | [place] [address] | [phone] | + + + + + Basic [...] | | | | | performed at [facility], [address] | | | | | | [address] [facility], | | | | | | [place] [address] | | | | + + + + + + + + | Specimen | + + | Blood | + + + + + + + | Performing | Address | City/State/Zipcode | Phone Number | | Organization | | | | + + + + + | [facility] | [address] | [place] [address] | [phone] | + + + + + CBC [...] [facility] | | | | performed at [facility], [address] | | LABORATORY | | | | [address], | | | | | | [place] [address] | | | | + + + + + + + + | Specimen | + + | Blood | + + + + + + + | Performing | Address | City/State/Zipcode | Phone Number | | Organization | | | | + + + + + | [facility] | [address] | [place] [address] | [phone] | + + + + + Phosphorus [...] | | | | | [place] [address] | | | | + + + + + + + + | Specimen | + + | Blood | + + + + + + + | Performing | Address | City/State/Zipcode | Phone Number | | Organization | | | | + + + + + | [facility] | [address] | [place] [address] | [phone] | + + + + + Magnesium (09/05/2019 5:26 AM PDT) + + + + + + | Component | Value | Ref Range | Performed | Pathologist | | | | | At | Signature | + + + + + + | Magnesium | 3.0 (H)Comment: Testing | 1.7 - 2.4 mg/dL | [facility] | | | | performed at [facility], [address] | | LABORATORY | | | | [address], | | | | | | [place] [address] | | | | + + + + + + + + | Specimen | + + | Blood | + + + + + + + | Performing | Address | City/State/Zipcode | Phone Number | | Organization | | | | + + + + + | [facility] | [address] | [place] [address] | [phone] | + + + + + Basic [...] (L)Comment: GFR <60: | >60 | [facility] | | | GFR | CHRONIC [...] | | | | | performed at [facility], [address] | | | | | | [facility], | | | | | | [place] [address] | | | | + + + + + + + + | Specimen | + + | Blood | + + + + + + + | Performing | Address | City/State/Zipcode | Phone Number | | Organization | | | | + + + + + | [facility] | [address] | [place] [address] | [phone] | + + + + + CBC [...] [facility] | | | | performed at [facility], [address] | | LABORATORY | | | | [address], | | | | | | [place] [address] | | | | + + + + + + + + | Specimen | + + | Blood | + + + + + + + | Performing | Address | City/State/Zipcode | Phone Number | | Organization | | | | + + + + + | [facility] | [address] | [place] [address] | [phone] | + + + + + ECG [...] | | | | | [place] [address] | | | | + + + + + + + + | Specimen | + + | Blood | + + + + + + + | Performing | Address | City/State/Zipcode | Phone Number | | Organization | | | | + + + + + | [facility] | [address] | [place] [address] | [phone] | + + + + + Magnesium (09/04/2019 4:59 AM PDT) + + + + + + | Component | Value | Ref Range | Performed | Pathologist | | | | | At | Signature | + + + + + + | Magnesium | 2.5 (H)Comment: Testing | 1.7 - 2.4 mg/dL | [facility] | | | | performed at [facility], [address] | | LABORATORY | | | | [address], | | | | | | [place] [address] | | | | + + + + + + + + | Specimen | + + | Blood | + + + + + + + | Performing | Address | City/State/Zipcode | Phone Number | | Organization | | | | + + + + + | [facility] | [address] | [place] [address] | [phone] | + + + + + Basic [...] | | | | | performed at [facility], [address] | | | | | | [address], | | | | | | [place] [address] | | | | + + + + + + + + | Specimen | + + | Blood | + + + + + + + | Performing | Address | City/State/Zipcode | Phone Number | | Organization | | | | + + + + + | [facility] | [address] [facility] | [place] [address] | [phone] | + + + + + CBC [...] [facility] | | | | performed at [facility], [address] | | LABORATORY | | | | [address], | | | | | | [place] [address] | | | | + + + + + + + + | Specimen | + + | Blood | + + + + + + + | Performing | Address | City/State/Zipcode | Phone Number | | Organization | | | | + + + + + | [facility] | [address] | [place] [address] | [phone] | + + + + + Culture, [...] Special | Testing performed at | | [facility] | | | Requests | [facility];[address] | | LABORATORY | | | | [address];[place] [address] | | | | + + + + + + | RESULT | NO GROWTH 6 DAYS | | [facility] | | | | | | LABORATORY | | + + + + + + | RESULT | Testing performed at | | [facility] | | | | [facility], [address] [facility] | | LABORATORY | | | | [address], [place] | | | | | | [id number]: Testing | | | | | | performed at [facility], [address] | | | | | [address], [place] | | | | | | [address] | | | | + + + + + + + + | Specimen | + + | Blood | + + + + + + + | Performing | Address | City/State/Zipcode | Phone Number | | Organization | | | | + + + + + | [facility] | [address] | [place] [address] | [phone] | + + + + + POC [...] | | | POC | performed at [facility];[address] | g/dL | LABORATORY | | | | [address];[place], [place] | | | | | | [address] | | | | + + + + + + + + | Specimen | + + | | + + + + + + + | Performing | Address | City/State/Zipcode | Phone Number | | Organization | | | | + + + + + | [facility] | [address] | [place] [address] | [phone] | + + + + + Culture, [...] LABORATORY | | | | Blvd;[place] [address] | | | | + + + [...] Stain | Testing performed at | | [facility] | | | Result | [facility], [address] [facility] | | LABORATORY | | | | Blvd, [place] | | | | | | [address] | | | | + + + [...] Comment: Testing | | | performed at [facility], | | | [address], | | | [place] [address] | +---+ + + + + + + | Performing | Address | City/State/Zipcode | Phone Number | | Organization | | | | + + + + + | [facility] | [address] | [place] [address] | [phone] | + + + + + POC [...] | | | POC | performed at [facility];[address] | g/dL | LABORATORY | | | | [address];[place], [place] | | | | | | [address] | | | | + + + + + + + + | Specimen | + + | | + + + + + + + | Performing | Address | City/State/Zipcode | Phone Number | | Organization | | | | + + + + + | [facility] | [address] | [place] [address] | [phone] | + + + + + Culture, [...] | | LABORATORY | | | | Blvd;[place] [address] | | | | + + + [...] | [facility] | | | Result | [facility];[address] | | LABORATORY | | | | Blvd;[place] [address] | | | | + + + [...] Comment: Testing | | | performed at [facility], | | | [address], | | | [place] [address] | +---+ + + + + + + | Performing | Address | City/State/Zipcode | Phone Number | | Organization | | | | + + + + + | [facility] | [address] | [place] [address] | [phone] | + + + + + , Serum, Qual (09/03/2019 3:11 PM PDT) + + + + + + | Component | Value | Ref Range | Performed | Pathologist | | | | | At | Signature | + + + + + + | Preg, Serum | NEGATIVEComment: Testing | NEG | [facility] | | | | performed at [facility];[address] | | LABORATORY | | | | [address];[place], [place] | | | | | | [address] | | | | + + + + + + + + | Specimen | + + | Blood | + + + + + + + | Performing | Address | City/State/Zipcode | Phone Number | | Organization | | | | + + + + + | [facility] | [address] | [place] [address] | [phone] | + + + + + ECG [...] | | | | | | editor at large Jimi King | | | | | [...] DAWNA | | | | performed at [facility];[address] | | LABORATORY | | | | [address];[place] | | | | | | [address] | | | | + + + + + + + + | Specimen | + + | Blood | + + + + + + + | Performing | Address | City/State/Zipcode | Phone Number | | Organization | | | | + + + + + | [facility] | [address] | [place] [address] | [phone] | + + + + + Comprehensive [...] | | | | | performed at [facility];[address] | | | | | | [address];[place] | | | | | | [address] | | | | + + + + + + + + | Specimen | + + | Blood | + + + + + + + | Performing | Address | City/State/Zipcode | Phone Number | | Organization | | | | + + + + + | [facility] | [address] | [place] [address] | [phone] | + + + + + CBC [...] | | | | | performed at [facility] | | | | | | [facility];[place], [place] | | | | | | [address] | | | | + + + + + + + + | Specimen | + + | Blood | + + + + + + + | Performing | Address | City/State/Zipcode | Phone Number | | Organization | | | | + + + + + | [facility] | [address] | [place] [address] | [phone] | + + + + + documented in this encounter Visit Diagnoses + + | Diagnosis | + + | Infected prosthetic vascular graft, initial encounter (HCC) - Primary | + + | Postoperative infection, unspecified type, initial encounter | + + | AV graft malfunction, initial encounter ([facility]) | + + | Bleeding from dialysis shunt, initial encounter ([facility]) | + + | Abnormal EKG Nonspecific abnormal electrocardiogram (ECG) (EKG) | + + | ESRD on hemodialysis ([facility]) End stage renal disease | + + | Anemia in ESRD (end-stage renal disease) ([facility]) Anemia in chronic kidney disease [...] | | | | | | longer, jwcsbq-iuk-arpas use of | | | | | [...] | | | | | | | drumfx-arp-lhxqb use of at least | | | [...]
--- OUTSIDE RECORDS SUMMARY | ~2020-04-05 | XMS | Encounter Summary ---
Demographics + + + | Address | [address] | | | [place] [address] | + + + | Home Phone [...] [place], [place] | | | | | [address] | | + + + + + | Lydia Palm | ECON | [place], [place] | | | | | [address] | | + + + + + | melinda METZ" | ECON | [place], [place] | | | [place] | | [address] | | + + + + + | Jose C Oconnor | ECON | [address] [place] | | | | | [place] | | | | | [address] | | + + + + + Care Team Providers + +------+ + | Care Military Technology Manager Name | Role | Phone | [...] + + | 10/12/ | Office | [facility] | Man Jeronimo, | End-stage renal | | 2019 | Visit | VASCULAR SURGERY | PA-C [address] | disease (HCC) | | | | [address] | [address]ESUS, | (Primary Dx) | | | | [place] | [place] [address] | | | | | [address] | [phone] | | | | | [phone] | | | +--------+---------+ + + + [...] Man Jeronimo PA-C - 10/12/2019 1:00 PM [facility] [address] [facility] [place] [address] Office: [phone] DATE OF VISIT: 10/12/2019 PATIENT NAME: Ramona [...] history of HTN and ESRDwho presented to [facility] ED with fever and chills [...] 08/26 patient was emerg ently transferred to [facility] for severe bleeding from left axilla. [...] CV: No peripheral edema, rate regular SKIN: [place], warm, dry without rash/lesion MS: ROM not [...]
--- OUTSIDE RECORDS SUMMARY | ~2020-04-05 | XMS | Encounter Summary ---
Demographics + + + | Address | [address] | | | [place] [address] | + + + | Home Phone [...] [place], [place] | | | | | [address] | | + + + + + | Lydia Palm | ECON | [place], [place] | | | | | [address] | | + + + + + | melinda METZ" | ECON | [place], [place] | | | [place] | | [address] | | + + + + + | Jose C Oconnor | ECON | [address] | | | | | [place] | | | | | [address] | | + + + + + Care Team Providers + +------+ + | Care Felt Cutting Machine Operator Name | Role | Phone [...] + + | 01/31/ | Office | [facility] | Kylie Alves DNP | ESRD (end stage | | 2020 | Visit | VASCULAR SURGERY | [address] | renal disease) on | | | | [address] | [place], [place] | dialysis (HCC) | | | | [place], [place] | [address] | (Primary Dx); | | | | [address] | | Hemodialysis access, | | | | [phone] | | AV graft (HCC) | +--------+---------+ [...] Kylie Alves DNP - 02/01/2020 [facility] [address] [place] [address] Office: [phone] DATE OF VISIT: 02/01/2020 PATIENT NAME: Ramona [...] chest regions were prepped and draped scotty jose luisely. Local anesthesia with 1% lidocaine was infiltrated [...]
--- OUTSIDE RECORDS SUMMARY | ~2020-04-05 | XMS | Encounter Summary ---
Demographics + + + | Address | [address] | | | [place] [address] | + + + | Home Phone [...] [place], [place] | | | | | [address] | | + + + + + | Lydia Palm | ECON | [place], [place] | | | | | [address] | | + + + + + | melinda METZ" | ECON | [place], [place] | | | [place] | | [address] | | + + + + + | Jose C Oconnor | ECON | [address] | | | | | [place] | | | | | [address] | | + + + + + Care Team Providers + +------+ + | Care Intellectual Property Legal Assistant Name | Role | Phone | [...] + + | 01/31/ | Office | [facility] | Kylie Alves DNP | ESRD (end stage | | 2020 | Visit | VASCULAR SURGERY | [address] | renal disease) on | | | | [address] | [place], [place] | dialysis (HCC) | | | | [place], [place] | [address] | (Primary Dx); | | | | [address] | | Hemodialysis access, | | | | [phone] | | AV graft (HCC) | +--------+---------+ [...] Kylie Alves DNP - [facility]/2020 [facility] [address] [place] [address] Office: [phone] DATE OF VISIT: 02/01/2020 PATIENT NAME: Ramona [...]
--- OUTSIDE RECORDS SUMMARY | ~2020-04-05 | XMS | Encounter Summary ---
Demographics + + + | Address | [address] | | | [place] [address] | + + + | Home Phone [...] [place], [place] | | | | | [address] | | + + + + + | Lydia Palm | ECON | [place], [place] | | | | | [address] | | + + + + + | melinda METZ" | ECON | [place], [place] | | | [place] | | [address] | | + + + + + | Jose C Oconnor | ECON | [address] | | | | | [place] | | | | | [address] | | + + + + + Care Team Providers + +------+ + | Care Digital X Ray Service Engineer Name | Role | Phone | + +------+ + | Eilene RickP | PCP | | + +------+ + Encounter Details +--------+ + + + + | Date | Type | Department | Care Team | Description | +--------+ + + + + | 07/06/ | Orders Only | [facility] | Qasim Pederson MD | ESRD on dialysis | | 2019 | | VASCULAR SURGERY | [address] | ([facility]) (Primary Dx); | | | | [address] | [place], [place] | Wound infection | | | | [place], [place] | [address] | after surgery | | | | [address] | | | | | | [phone] | | | +--------+ + + + [...]
--- OUTSIDE RECORDS SUMMARY | ~2020-04-05 | XMS | Encounter Summary ---
Demographics + + + | Address | [address] | | | [place] [address] | + + + | Home Phone [...] [place], [place] | | | | | [address] | | + + + + + | Lydia Palm | ECON | [place], [place] | | | | | [address] | | + + + + + | melinda METZ" | ECON | [place], [place] | | | reba | | [address] | | + + + + + | Jose C Oconnor | ECON | [place] | | | | | [place] | | | | | [address] | | + + + + + Care Team Providers + +------+ + | Care Health Facilities Surveyor Name | Role | Phone | + +------+ + | Juan F Sampson DO | PCP | | + +------+ + Encounter Details +--------+ + + + + | Date | Type | Department | Care Team | Description | +--------+ + + + + | 02/01/ | Hospital | [facility] | Karen Roque DO | End-stage renal | | 2019 - | Encounter | [facility] | [address] | disease ([facility]); | | | | CARE FLOOR [address] | [place] [address] | Anemia in ESRD | | 02/15/ | [address] | [phone] | (end-stage renal | | 2019 | | [place], [place] | | disease) ([facility]); | | | | [address] | | Electrolyte | | | | [phone] | | imbalance risk; | | | [...] Date of Service: 02/15/19 1141 Status: Signed Electronic Heat Seal Operator: Ginger Bass MD (Physician) Related Notes: Original Note by Ginger Bass MD (Physician) filed at 02/15/19 1141 [facility] Service: Hospitalist Physician Discharge Summary Patient ID: [...] ent will have outpatient follow up with SENIOR PENSIONS ADMINISTRATOR to rule out malignancy. SENIOR PENSIONS ADMINISTRATOR referral has been se coronado. Plan discussed [...] Home Follow [place]: [place] [address] [facility] [address] Schedule an appointment as soon as possible for a visit in 3 days Santos Chi MD [address] [facility] [phone] Schedule an appointment as soon as possible for a visit in 1 week Alonzo Correa MD [address] [facility] [address] Schedule an appointment as [...] summary. This entry has been created using Proton [employer] Speech Recognition software and [employer]. The entry has been reviewed and there [...] Progress Notes by Soo Portillo at 02/15/19 2339 Author: Soo Portillo Service: Nephrology Author Type: Coordinator Filed: 02/15/19 2295 Date of Service: 02/15/19 394 Status: Signed Electronic Heat Seal Operator: Soo Portillo (Coordinator) Patients chair time is: Friday @ 10:30am-PLEASE ARRIVE FIRST DAY ONLY 02-17-19 AT 9:30AM Kimber Vieira [address] [place] [address] Thank you onver patric Transaction, Provider Unknown - 02/15/2019 1:14 PM PDT Case Management by Lilo Iqbal RN at 02/15/19 1314 Author: Lilo Iqbal RN Service: (none) Author Type: Registered Nurse Filed: 02/15/19 1501 Date of Service: 02/15/19 1314 Status: Addendum Electronic Heat Seal Operator: Lilo Iqbal RN (Registered Nurse) Related Notes: Original Note by Lilo Iqbal RN (Registered Nurse) filed a t 02/15/19 1436 Pt's dialysis chair time has been moved to 10:30 am M/W/F, pt and AVS have been updated. Disposition: home with IV infusions at [facility] has been updated Transportation: family to transport Patient and family in agreement with discharge plan Medicare important message (Given or N/A): given Lilo Iqbal RN onver patric Transaction, Provider Unknown - 02/15/2019 8:30 AM PDT Case Management by Lilo Iqbal RN at 02/15/19829 Author: Lilo Iqbal RN Service: (none) Author Type: Registered Nurse Filed: 02/15/19 5168 Date of Service: 02/15/19829 Status: Addendum Electronic Heat Seal Operator: Lilo Iqbal RN (Registered Nurse) Related Notes: Original Note by Lilo Iqbal RN (Registered Nurse) filed a t 02/15/19 4503 notified Kimber Vieira that pt will not be making her dialysis appt today. Due to pt's Home Health orders possibly not going through until Friday and pt's preferri ng OPP vs Home Infusions, KARTHIK contacted Soo, dialysis coordinator, to see if pt's dialysis chair time can be pushed up in order for her to make her IV abx infusions time in [facility]. Soo will return call to . KARTHIK contacted [place] [facility] to verify abx order had been received and they would be able to place peripheral IV's for daily infusions. RN agreed. KARTHIK received a call back from Soo stating [facility] [place], and [facility] are completely booked and are unable to accommodate an earlier dialysis time for pt to allow mor e time for her to travel. KARTHIK verified with second class welder that pt should have dialysis complete d by 3:00 pm everyday. CM updated pt and pt's spouse regarding travel time and they are in a greement with the plan. KARTHIK contacted [place] [facility] that states they can push the pt's abx infusions to 5:30 pm. CM scheduled pt's abx infusions to start tomorrow 02/16 at 5:30 pm. MICHELLE Curran from [facility] she will try to get approval for gas vouchers to p pamelagaro to the pt. CM discussed with MICHELLE Charlesretirement village manager from [facility], to verify that pt's insuran ce will cover the cost of the abx therapy as it is out of the state of [place]. Araceli returned call back to CM stating that [facility] [place] is in pt's insurance ne twork and will not require a prior auth. Araceli will contact pt and pt's to verify out of pocket cost. onver patric Transaction, Provider Unknown - 02/15/2019 5:37 AM PDT Nurse Progress Note by Fred Prater RN at 02/15/19536 Author: Fred Prater RN Service: (none) Author Type: Registered Nurse Filed: 02/15/19539 Date of Service: 02/15/19536 Status: Signed Electronic Heat Seal Operator: Fred Prater RN (Registered Nurse) Pt has [...] 02/14/191840 Date of Service: 02/14/191839 Status: Signed Electronic Heat Seal Operator: Jalil More RN (Registered Nurse) Patient resting in room with family at bedside. VSS during shift. 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 Dialysis scheduled for 6 am on 02/15/19. No further acute changes from previous assessment. Chart review complete. JALIL MORE iana spivey Transaction, Provider Unknown - 02/14/2019 3:34 PM PDT Progress Notes by Stepan Carey RPH at 02/14/19 1534 Author: Stepan Carey RPH Service: Pharmacy Author Type: Pharmacist Filed: 02/14/19 1534 Date of Service: 02/14/191533 Status: Signed Electronic Heat Seal Operator: Stepan Carey RPH (Pharmacist) Vancomycin Monitoring Subjective Pharmacy to dose vancomycin per protocol. Diagnosis: Abdominal Infection. Vancomycin Day: 6 Objective Lab Results Component Value Date/Time CREATININE 8.5 (H) 02/14/2019 04:16 AM WBC 11.19 (H) 02/14/2019 04:16 AM Wt= 80 kg, CrCl= HD patient, Tmax afeb Cultures= MRSA Nare - neg; Bloodx2 [id number]; Body fluid/peritoneal fluid - NGTD. Other A [...] Date of Service: 02/14/19 104 Status: Signed Electronic Heat Seal Operator: Ginger Bass MD (Physician) [facility] Service: Hospitalist Progress Note Hospital Day: LOS: [...] AM This entry has been created using Proton Therapy Speech Recognition software and [employer]. The entry has been reviewed and there may still exist sound alike word errors. onversion Trans action, Provider Unknown - 02/14/2019 6:14 AM PDT Nurse Progress Note by Shelli Mukherjee RN at 02/14/19613 Author: Shelli Mukherjee RN Service: (none) Author Type: Registered Nurse Filed: 02/14/19614 Date of Service: 02/14/19613 Status: Signed Electronic Heat Seal Operator: Shelli Mukherjee RN (Registered Nurse) A/Ox4. VSS. [...] 02/13/191901 Date of Service: 02/13/191899 Status: Signed Electronic Heat Seal Operator: Jalil Benguiat, RN (Registered Nurse) Patient nauseated at beginning of shift. Phenergan given with good results. No c/o pain thi s shift. VSS. No further acute changes from previous assessment. Chart review complete. JALIL MORE Ginger Caballero MD - 02/13/2019 12:54 PM PDTFormatting of this note might be different from t brant original. Progress Notes by Ginger Bass MD at 02/13/19 4259 Author: Ginger Bass MD Service: Hospitalist Author Type: Physician Filed: 02/13/19 6888 Date of Service: 02/13/19 1253 Status: Signed Electronic Heat Seal Operator: Ginger Bass MD (Physician) [facility] Service: Hospitalist Progress Note Hospital Day: LOS: [...] PM This entry has been created using Proton Therapy Speech Recognition software and [employer]. The entry has been reviewed and there may still exist sound alike word errors. Linden Kincaid MD - 02/13/2019 11:16 AM PDT Progress Notes by Linden Alonzo MD at 02/13/191115 Author: Linden Alonzo MD Service: Nephrology Author Type: Physician Filed: 02/13/192106 Date of Service: 02/13/191115 Status: Signed Electronic Heat Seal Operator: Linden Alonzo MD (Physician) [facility] Service: NEPHROLOGY Progress Note Ramona Oconnor 39 y.o. [id number] female [facility] Day: LOS: 12 days Patient with PMH [...] 10/25/15 showed normal sized kidneys. She initiated CARPENTER'S ASSISTANT with PD 10/28/15. Primary manager of investigations GERD (gastroesophageal reflux disease) Hypercalcemia 09/07/2017 Hyperphosphatemia 10/28/2015 Hypocalcemia 10/28/2015 Hypokalemia 06/04/2017 Itching 10/28/2015 Metabolic acidosis 10/28/2015 Obesity Peritonitis associated with peritoneal dialysis (HCC) 01/24/2017 Peritonitis due to infected peritoneal dialysis catheter (HCC) 12/08/2018 Secondary hyperparathyroidism (HCC) Uremia 10/28/2015 Past Surgical History Procedure Laterality Date CATHETER REMOVAL N/A 02/04/2019 Procedure: DIALYSIS CATHETER - REMOVAL; Surgeon: Qasim Pederson MD; Location: [facility] MAIN OR ; Service: Vascular; Laterality: N/A; Infected PD catheter removal ESOPHAGOGASTRODUODENOSCOPY N/A 09/10/2017 Procedure: ESOPHAGOGASTRODUODENOSCOPY; Surgeon: Beena Peters MD; Location: [facility] ENDOSCOP Y; Service: Gastroenterology; Laterality: N/A; PERITONEAL CATHETER INSERTION N/A 10/28/2015 Procedure: LAPAROSCOPIC - PERITONEAL DIALYSIS CATH INSERTION; Surgeon: Mundo Ramos MD; Lo cation: [facility] MAIN OR; Service: Vascular; Laterality: [...] earlier and charting completed later Dictation software, [employer], used which may contain error for similar [...] 02/13/19554 Date of Service: 02/13/19552 Status: Signed Electronic Heat Seal Operator: Shelli Mukherjee RN (Registered Nurse) A/Ox4. VSS. [...] 02/12/191942 Date of Service: 02/12/191941 Status: Signed Electronic Heat Seal Operator: Jalil More RN (Registered Nurse) Patient continues [...] Notes by Esteban العلي MD at 02/12/19 1810 Author: Esteban العلي MD Service: Internal Medicine Author Type: Physician Filed: 02/12/19 3327 Date of Service: 02/12/19 1629 Status: Signed Electronic Heat Seal Operator: Esteban العلي MD (Physician) [facility] Service: Hospitalist Progress Note Hospital Day: LOS: 11 days SUBJECTIVE Feels good Tired of being here Wants to go home Patient Summary: Ms. 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 Was on [...] Edward Sign Date/Time: 2019 11:54 AM [employer] Water Filler Pelvis Transabd/endovaginal Result Date: 02/01/2019 1. Moderate [...] figure out how to arrange this. D/w caser in, ID, renal. ESRD On HD per propagation manager noted. HD setup [facility]WF [facility]. S/p tunneled catheter placement 02/05/19 HTN BP [...] and management as well as Computerized Physician Customer Service Security Officer. Disposition: Home ? Facility? Code Status: Full Code Esteban العلي MD 02/12/2019 4:29 PM onversion Transactawa n, Provider Unknown - 02/12/2019 10:24 AM PDT Progress Notes by Stepan Carey RPH at 02/12/19 1024 Author: Stepan Carey RPH Service: Pharmacy Author Type: Pharmacist Filed: 02/12/19 1024 Date of Service: 02/12/19 1024 Status: Signed Electronic Heat Seal Operator: Stepan Carey RPH (Pharmacist) Vancomycin Monitoring Subjective Pharmacy to dose vancomycin per protocol. Diagnosis: Abdominal infection. Vancomycin Day: 4 Objective Lab Results Component Value Date/Time CREATININE 8.9 (H) 02/12/2019 05:49 AM WBC 11.02 (H) 02/12/2019 05:49 AM Wt= 81.8 kg, CrCl= HD patient, Tmax afeb Cultures= MRSA Nare - neg; Bloodx2 [id number]; Body fluid/peritoneal fluid - NGTD. Other A [...] Date of Service: 02/12/19 1007 Status: Signed Electronic Heat Seal Operator: Alonzo Correa MD (Physician) [facility] Service: Infectious Diseases Progress Note Hospital Day: [...] Value Units Date/Time Fluid culture w/gram stain [[id number]] Collected: 02/01/19 0751 Specimen: Body Fluid from [...] to complete OPAT with her PCP in [place]. 4. Mild elevation of procalcitonin, expected in [...] 1055 Date of Service: 02/12/19915 Status: Addendum Electronic Heat Seal Operator: Lilo Iqbal RN (Registered Nurse) Related Notes: Original Note by Lilo Iqbal RN (Registered Nurse) filed a t 02/12/19 9132 CM notified Kimber Vieira that pt will not be making her dialysis appt today. KARTHIK faxed abx script and chart notes to Mercedez at [facility]. Mercedez states that the ir RN will be contacting CM on instructions to set up outpt abx infusions. 11:00 KARTHIK received a call from [facility] MICHELLE Curran. Bina states they do not have an MD [facility] privileges and their pt's that are discharged with abx usually do in home infusio ns. KARTHIK spoke to pt again today about the possibility of doing in home abx. Pt states she wou ld rather drive to [place] every day instead of doing abx at home. 11:10 CM contacted OPP through [place] that states they will be able to accept pt for ab x therapy once insurance approves. KARTHIK faxed script and ID notes to [place] #[phone]. Pt's abx is scheduled for a PM dose. [place] states the latest they can administer the abx is 5:00 pm. Pt's dialysis chair time is at 11:30 am in [facility]. 12:20 Pt decided she would be better off doing abx at home [place] and abx appts. KARTHIK placed referral and faxed script and paperwork to Kassidy Parker. Doreen states that [facility] PCP may not be able to sign Home Health orders in order to set up Home Health with outpt abx therapy. Tefna states that home health orders wi ll have to be faxed to BALJIT Nagy and Dr. Harrington #[phone] to be approved, a nd may take [...] 02/12/191918 Date of Service: 02/12/19844 Status: Signed Electronic Heat Seal Operator: Linden Alonzo MD (Physician) [facility] Service: NEPHROLOGY Dialysis/ Progress Note Ramona Oconnor 39 y.o. [id number] female [facility] Hospital Day: LOS: 11 days [...] 10/25/15 showed normal sized kidneys. She initiated CARPENTER'S ASSISTANT with PD 10/28/15. Primary manager of investigations GERD (gastroesophageal reflux disease) Hypercalcemia 09/07/2017 Hyperphosphatemia 10/28/2015 Hypocalcemia 10/28/2015 Hypokalemia 06/04/2017 Itching 10/28/2015 Metabolic acidosis 10/28/2015 Obesity Peritonitis associated with peritoneal dialysis (HCC) 01/24/2017 Peritonitis due to infected peritoneal dialysis catheter (HCC) 12/08/2018 Secondary hyperparathyroidism (HCC) Uremia 10/28/2015 Past Surgical History Procedure Laterality Date CATHETER REMOVAL N/A 02/04/2019 Procedure: DIALYSIS CATHETER - REMOVAL; Surgeon: Qasim Pederson MD; Location: [facility] MAIN OR ; Service: Vascular; Laterality: N/A; Infected PD catheter removal ESOPHAGOGASTRODUODENOSCOPY N/A 09/10/2017 Procedure: ESOPHAGOGASTRODUODENOSCOPY; Surgeon: Beena Peters MD; Location: [facility] ENDOSCOP Y; Service: Gastroenterology; Laterality: N/A; PERITONEAL CATHETER INSERTION N/A 10/28/2015 Procedure: LAPAROSCOPIC - PERITONEAL DIALYSIS CATH INSERTION; Surgeon: Mundo Ramos MD; Lo cation: [facility] MAIN OR; Service: Vascular; Laterality: [...] earlier and charting completed later Dictation software, [employer], used which may contain error for similar [...] 02/12/19514 Date of Service: 02/12/19511 Status: Signed Electronic Heat Seal Operator: Shelli Mukherjee RN (Registered Nurse) A/Ox4, VSS, [...] 02/11/191849 Date of Service: 02/11/191845 Status: Signed Electronic Heat Seal Operator: Esteban العلي MD (Physician) [facility] Service: Hospitalist Progress Note Hospital Day: LOS: 10 days SUBJECTIVE No pain today in belly No nausea Took shower, feels good Patient Summary: Ms. 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 Was on [...] Edward Sign Date/Time: 2019 11:54 AM Us Air And Water Filler Pelvis Transabd/endovaginal Result Date: 02/01/2019 1. Moderate [...] pain abx changed to merrem, vanco from [facility] Plan to c/w Merrem. Will need either central tunneled cath or peripheral line for outpt iv abx. Unable to given merrem with HD. So will need to come outpt facility? D/w caser in, ID, renal. Patient prefers peripheral line ESRD On HD per propagation manager noted. HD setup MWF at [facility]. S/p tunneled catheter placement 02/05/19 HTN BP [...] and management as well as Computerized Physician Customer Service Security Officer. Disposition: Home ? Facility? Code Status: Full Code Esteban العلي MD 02/11/2019 6:46 PM onversion Transactio n, Provider Unknown - 02/11/2019 2:45 PM PDT Progress Notes by Isaiah Grimaldo RD at 02/11/19 1446 Author: Isaiah Grimaldo RD Service: (none) Author Type: Registered Dietitian Filed: 02/11/19 1441 Date of Service: 02/11/19 1445 Status: Signed Electronic Heat Seal Operator: Isaiah Grimaldo RD (Registered Dietitian) 02/11/19 1439 Subjective Timepoint Follow up Pt c/o H [...] [facility] as is not drinking [...] Date of Service: 02/11/19 1200 Status: Addendum Electronic Heat Seal Operator: Lilo Iqbal RN (Registered Nurse) Related Notes: Original Note by Lilo Iqbal RN (Registered Nurse) filed a t 02/12/19 1047 Per ID MD pt will be needing abx infusions outpt, once discharged. CM discussed IV abx opti ons with pt, home infusion vs OPP at [facility]. Pt is not wanting to do in home antibioti cs and prefers to go into the hospital to complete abx's. CM will fax abx script once availa ble to pt's PCP as our ID MD does not have privileges in [place]. Linden Kincaid MD - 02/11/2019 11:39 AM PDTFormatting of this note might be different from the orig inal. Progress Notes by Linden Alonzo MD at 02/11/19 2358 Author: Linden Alonzo MD Service: Nephrology Author Type: Physician Filed: 02/18/19 9369 Date of Service: 02/11/19 5198 Status: Signed Electronic Heat Seal Operator: Linden Alonzo MD (Physician) [facility] Service: NEPHROLOGY Progress Note Ramona Oconnor 39 y.o. [id number] [id number] female [facility] Day: LOS: 10 days Patient with PMH [...] 10/25/15 showed normal sized kidneys. She initiated CARPENTER'S ASSISTANT with PD 10/28/15. Primary manager of investigations GERD (gastroesophageal reflux disease) Hypercalcemia 09/07/2017 Hyperphosphatemia 10/28/2015 Hypocalcemia 10/28/2015 Hypokalemia 06/04/2017 Itching 10/28/2015 Metabolic acidosis 10/28/2015 Obesity Peritonitis associated with peritoneal dialysis (HCC) 01/24/2017 Peritonitis due to infected peritoneal dialysis catheter (HCC) 12/08/2018 Secondary hyperparathyroidism (HCC) Uremia 10/28/2015 Past Surgical History Procedure Laterality Date CATHETER REMOVAL N/A 02/04/2019 Procedure: DIALYSIS CATHETER - REMOVAL; Surgeon: Qasim Pederson MD; Location: [facility] MAIN OR ; Service: Vascular; Laterality: N/A; Infected PD catheter removal ESOPHAGOGASTRODUODENOSCOPY N/A 09/10/2017 Procedure: ESOPHAGOGASTRODUODENOSCOPY; Surgeon: Beena Peters MD; Location: [facility] END[facility]; Service: Gastroenterology; Laterality: N/A; PERITONEAL CATHETER INSERTION N/A 10/28/2015 Procedure: LAPAROSCOPIC - PERITONEAL DIALYSIS CATH INSERTION; Surgeon: Mundo Ramos MD; Lo cation: [facility] MAIN OR; Service: Vascular; Laterality: [...] hemodialysis.The patient has been evaluated by his manager of investigations who determined that he is a suitable candidate to undergo hemodialysis. The patient has received appropriate training re garding hemodialysis. The patient understands the benefit and purpose of the planned procedu re of tunneled hemodialysis catheter insertion is to allow the patient to receive hemodialys is while waiting for a eviction specialist hemodialysis access such as arteriovenous venous fistula [...] earlier and charting completed later Dictation software, [employer], used which may contain error for similar [...] Date of Service: 02/11/19 1022 Status: Signed Electronic Heat Seal Operator: Alonzo Correa MD (Physician) [facility] Service: Infectious Diseases Progress Note Hospital Day: [...] Value Units Date/Time Fluid culture w/gram stain [[id number]] Collected: 02/01/19 0751 Specimen: Body Fluid from [...] to complete OPAT with her PCP in [place]. 4. Mild elevation of procalcitonin, expected in [...] 02/11/19521 Date of Service: 02/11/19521 Status: Signed Electronic Heat Seal Operator: Frances Tineo RN (Registered Nurse) Tmax 99.2. [...] Internal Medicine Author Type: Physician Filed: 02/11/19 365 Date of Service: 02/10/191836 Status: Signed Electronic Heat Seal Operator: Esteban العلي MD (Physician) [facility] Service: Hospitalist Progress Note Hospital Day: LOS: 9 days SUBJECTIVE C/o belly pain 5/10, dull achy better today Nausea better Patient Summary: Ms. 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 Scheduled Medications [...] Edward Sign Date/Time: 2019 11:54 AM Us Air And Water Filler Pelvis Transabd/endovaginal Result Date: 02/01/2019 1. Moderate [...] pain abx changed to merrem, vanco from [facility] No need for imaging, no ct needed for now ESRD On HD per propagation manager noted. HD setup MWF [facility]. S/p tunneled catheter placement 02/05/19 Hypokalemia Defer [...] and management as well as Computerized Physician Customer Service Security Officer. Disposition: Home Code Status: Full Code Esteban العلي MD 02/10/2019 6:37 PM Linden Kincaid MD - 2:45 PM PDT Progress Notes by Linden Alonzo MD at 02/10/19 9516 Author: Linden Alonzo MD Service: Nephrology Author Type: Physician Filed: 02/17/192119 Date of Service: 02/10/191444 Status: Signed Electronic Heat Seal Operator: Linden Alonzo MD (Physician) [facility] Service: NEPHROLOGY Dialysis/ Progress Note Ramona Hutson Elvin 39 y.o. [id number] female [facility] Hospital Day: [...] 10/25/15 showed normal sized kidneys. She initiated CARPENTER'S ASSISTANT with PD 10/28/15. Primary manager of investigations GERD (gastroesophageal reflux disease) Hypercalcemia 09/07/2017 Hyperphosphatemia 10/28/2015 Hypocalcemia 10/28/2015 Hypokalemia 06/04/2017 Itching 10/28/2015 Metabolic acidosis 10/28/2015 Obesity Peritonitis associated with peritoneal dialysis (HCC) 01/24/2017 Peritonitis due to infected peritoneal dialysis catheter (HCC) 12/08/2018 Secondary hyperparathyroidism (HCC) Uremia 10/28/2015 Past Surgical History Procedure Laterality Date CATHETER REMOVAL N/A 02/04/2019 Procedure: DIALYSIS CATHETER - REMOVAL; Surgeon: Qasim Pederson MD; Location: [facility] MAIN OR ; Service: Vascular; Laterality: N/A; Infected PD catheter removal ESOPHAGOGASTRODUODENOSCOPY N/A 09/10/2017 Procedure: ESOPHAGOGASTRODUODENOSCOPY; Surgeon: Beena Peters MD; Location: [facility] ENDOSCOP Y; Service: Gastroenterology; Laterality: N/A; PERITONEAL CATHETER INSERTION N/A 10/28/2015 Procedure: LAPAROSCOPIC - PERITONEAL DIALYSIS CATH INSERTION; Surgeon: Mundo Ramos MD; Lo cation: [facility] MAIN OR; Service: Vascular; Laterality: [...] hemodialysis.The patient has been evaluated by his manager of investigations who determined that he is a suitable candidate to undergo hemodialysis. The patient has received appropriate training re garding hemodialysis. The patient understands the benefit and purpose of the planned procedu re of tunneled hemodialysis catheter insertion is to allow the patient to receive hemodialys is while waiting for a eviction specialist hemodialysis access such as arteriovenous venous fistula [...] earlier and charting completed later Dictation software, [employer], used which may contain error for similar [...] Date of Service: 02/10/19 100 Status: Signed Electronic Heat Seal Operator: Stepan Carey RPH (Pharmacist) Vancomycin Monitoring Subjective Pharmacy to dose vancomycin per protocol. Diagnosis: Abdominal infection. Vancomycin Day: 2 Objective Lab Results Component Value Date/Time CREATININE 9.9 (H) 02/10/2019 05:17 AM WBC 14.51 (H) 02/09/2019 05:07 AM Wt= 83.7 kg, CrCl= HD, Tmax afeb Cultures= MRSA Nare - neg; Bloodx2 [id number]; Body fluid/peritoneal fluid - NGTD. Other A [...] Date of Service: 02/10/19 1000 Status: Signed Electronic Heat Seal Operator: Alonzo Correa MD (Physician) [facility] Service: Infectious Diseases Progress Note Hospital Day: [...] 1010 Date of Service: 02/10/19914 Status: Addendum Electronic Heat Seal Operator: Lilo Iqbal RN (Registered Nurse) Related Notes: [...] 02/10/19522 Date of Service: 02/10/19522 Status: Signed Electronic Heat Seal Operator: Frances Tineo RN (Registered Nurse) VSS. C/o [...] 02/09/192244 Date of Service: 02/09/192244 Status: Signed Electronic Heat Seal Operator: April Chacon RPH (Pharmacist) Initiation of Vancomycin Pharmacy Dosing Ramona Guzmanen 39 y.o. female 1.575 m (5' 2") 82 kg (180 lb 12.4 oz) Body mass index is 33.06 kg/m. [place] body weight: 50.1 kg (110 lb 7.2 [...] 02/09/191809 Date of Service: 02/09/191805 Status: Signed Electronic Heat Seal Operator: Misty Camacho RN (Registered Nurse) Pt A&Ox4, VSS at this time. Pain managed with PRN norco and nausea managed with PRN phenerg an and zofran. Pt tolerated PO this evening. Started on vancomycin and meropenum per MD anayeli gilman Pt to continue IV abx with dialysis in [place] when medically stable. Otherwise no acut e changes this shift. End of shift audit complete. Misty Camacho RN Esteban Yoder MD - 02/09/2019 3:01 PM PDTFormatting of this note might be different from the or iginal. Progress Notes by Esteban العلي MD at 02/09/19 6570 Author: Esteban العلي MD Service: Internal Medicine Author Type: Physician Filed: 02/09/19 1504 Date of Service: 02/09/19 1501 Status: Signed Electronic Heat Seal Operator: Esteban العلي MD (Physician) [facility] Service: Hospitalist Progress Note Hospital Day: LOS: 8 days SUBJECTIVE C/o belly pain 5/10 Nausea, not eating Patient Summary: Ms. 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 Scheduled Medications [...] Edward Sign Date/Time: 2019 11:54 AM [employer] F[employer] Pelvis Transabd/endovaginal Result Date: 02/01/2019 1. Moderate [...] of wbc ^ ESRD On HD per propagation manager noted. HD setup MWF at [facility]. S/p tunneled catheter placement 02/05/19 Hypokalemia Defer [...] and management as well as Computerized Physician Customer Service Security Officer. Disposition: Home Code Status: Full Code Esteban العلي MD 02/09/2019 3:01 PM Alonzo Cool MD - 02/09/2019 11:18 AM PDTFormatting of this note might be different from the ave ginal. Progress Notes by Alonzo Correa MD at 02/09/198 Author: Alonzo Correa MD Service: Infectious Disease Author Type: Alex eaton Filed: 02/09/19 1709 Date of Service: 02/09/191117 Status: Signed Electronic Heat Seal Operator: Alonzo Correa MD (Physician) [facility] Service: Infectious Diseases Progress Note Hospital Day: [...] 02/16/192136 Date of Service: 02/09/191048 Status: Signed Electronic Heat Seal Operator: Linden Alonzo MD (Physician) [facility] Service: NEPHROLOGY Dialysis/ Progress Note Ramona Oconnor 39 y.o. [phone] [id number]/8127-1 female [facility] Hospital Day: LOS: 8 days [...] 10/25/15 showed normal sized kidneys. She initiated CARPENTER'S ASSISTANT with PD 10/28/15. Primary manager of investigations GERD (gastroesophageal reflux disease) Hypercalcemia 09/07/2017 Hyperphosphatemia 10/28/2015 Hypocalcemia 10/28/2015 Hypokalemia 06/04/2017 Itching 10/28/2015 Metabolic acidosis 10/28/2015 Obesity Peritonitis associated with peritoneal dialysis (HCC) 01/24/2017 Peritonitis due to infected peritoneal dialysis catheter (HCC) 12/08/2018 Secondary hyperparathyroidism (HCC) Uremia 10/28/2015 Past Surgical History Procedure Laterality Date CATHETER REMOVAL N/A 02/04/2019 Procedure: DIALYSIS CATHETER - REMOVAL; Surgeon: Qasim Pederson MD; Location: [facility] MAIN OR ; Service: Vascular; Laterality: N/A; Infected PD catheter removal ESOPHAGOGASTRODUODENOSCOPY N/A 09/10/2017 Procedure: ESOPHAGOGASTRODUODENOSCOPY; Surgeon: Beena Peters MD; Location: [facility] ENDOSCOP Y; Service: Gastroenterology; Laterality: N/A; PERITONEAL CATHETER INSERTION N/A 10/28/2015 Procedure: LAPAROSCOPIC - PERITONEAL DIALYSIS CATH INSERTION; Surgeon: Mundo Ramos MD; Lo cation: [facility] MAIN OR; Service: Vascular; Laterality: [...] hemodialysis.The patient has been evaluated by his manager of investigations who determined that he is a suitable candidate to undergo hemodialysis. The patient has received appropriate training re garding hemodialysis. The patient understands the benefit and purpose of the planned procedu re of tunneled hemodialysis catheter insertion is to allow the patient to receive hemodialys is while waiting for a eviction specialist hemodialysis access such as arteriovenous venous fistula [...] earlier and charting completed later Dictation software, [employer], used which may contain error for similar [...] 02/08/191748 Date of Service: 02/08/191745 Status: Addendum Electronic Heat Seal Operator: Misty Camacho RN (Registered Nurse) Related Notes: [...] and situation. New order for PRN Ativan [facility] ed by . Pt refused all meals [...] 02/08/198 Date of Service: 02/08/191617 Status: Signed Electronic Heat Seal Operator: Janet Gutierrez RD (Registered Dietitian) 02/08/19 1600 [...] Estimated Energy Needs Total Energy Estimated Needs 8152-2151 kcal/day Method for Estimating Needs 25-30 kcal/kg [...] Notes by Esteban العلي MD at 02/08/19 4454 Author: Esteban العلي MD Service: Internal Medicine Author Type: Physician Filed: 02/09/19 1342 Date of Service: 02/08/19 1607 Status: Signed Electronic Heat Seal Operator: Esteban العلي MD (Physician) [facility] Service: Hospitalist Progress Note Hospital Day: LOS: 7 days SUBJECTIVE Feels okay, tired of being here Patient Summary: Ms. 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 Scheduled Medications [...] Edward Sign Date/Time: 2019 11:54 AM [employer] F[employer] Pelvis Transabd/endovaginal Result Date: 02/01/2019 1. Moderate [...] PD catheter 02/04/19 ESRD On HD per propagation manager noted. HD setup MWF [place] [facility]. S/p tunneled catheter placement 02/05/19 Continue P [...] and management as well as Computerized Physician Customer Service Security Officer. Disposition: Home Code Status: Full Code Esteban العلي MD 02/08/2019 4:04 PM Linden Kincaid MD - 12:15 PM PDT Progress Notes by Linden Alonzo MD at 02/08/19 1216 Author: Linden Alonzo MD Service: Nephrology Author Type: Physician Filed: 02/08/19 173 Date of Service: 02/08/195 Status: Signed Electronic Heat Seal Operator: Linden Alonzo MD (Physician) [facility] Service: NEPHROLOGY Dialysis/ Progress Note Ramona Guzmanen 39 y.o. [id number] 8127/8127-1 female [facility] Hospital Day: LOS: 7 days Patient with [...] 10/25/15 showed normal sized kidneys. She initiated CARPENTER'S ASSISTANT with PD 10/28/15. Primary manager of investigations GERD (gastroesophageal reflux disease) Hypercalcemia 09/07/2017 Hyperphosphatemia 10/28/2015 Hypocalcemia 10/28/2015 Hypokalemia 06/04/2017 Itching 10/28/2015 Metabolic acidosis 10/28/2015 Obesity Peritonitis associated with peritoneal dialysis (HCC) 01/24/2017 Peritonitis due to infected peritoneal dialysis catheter (HCC) 12/08/2018 Secondary hyperparathyroidism (HCC) Uremia 10/28/2015 Past Surgical History Procedure Laterality Date CATHETER REMOVAL N/A 02/04/2019 Procedure: DIALYSIS CATHETER - REMOVAL; Surgeon: Qasim Pederson MD; Location: [facility] MAIN OR ; Service: Vascular; Laterality: N/A; Infected PD catheter removal ESOPHAGOGASTRODUODENOSCOPY N/A 09/10/2017 Procedure: ESOPHAGOGASTRODUODENOSCOPY; Surgeon: Beena Peters MD; Location: [facility] ENDOSCOP Y; Service: Gastroenterology; Laterality: N/A; PERITONEAL CATHETER INSERTION N/A 10/28/2015 Procedure: LAPAROSCOPIC - PERITONEAL DIALYSIS CATH INSERTION; Surgeon: Mundo Ramos MD; Lo cation: [facility] MAIN OR; Service: Vascular; Laterality: [...] hemodialysis.The patient has been evaluated by his manager of investigations who determined that he is a suitable candidate to undergo hemodialysis. The patient has received appropriate training re garding hemodialysis. The patient understands the benefit and purpose of the planned procedu re of tunneled hemodialysis catheter insertion is to allow the patient to receive hemodialys is while waiting for a eviction specialist hemodialysis access such as arteriovenous venous fistula [...] earlier and charting completed later Dictation software, [employer], used which may contain error for similar [...] 1722 Date of Service: 02/08/191057 Status: Signed Electronic Heat Seal Operator: Alonzo Correa MD (Physician) [facility] Service: Infectious Diseases Progress Note Hospital Day: [...] 02/08/19924 Date of Service: 02/08/19921 Status: Signed Electronic Heat Seal Operator: Lilo Iqbal, RN (Registered Nurse) notified Kimber [...] 02/08/19647 Date of Service: 02/08/19647 Status: Signed Electronic Heat Seal Operator: Lizz Gill RN (Registered Nurse) Pt c/o nausea this AM, PRN phenergan given per MAR. Lizz Gill RN onver patric Transaction, Provider Unknown - 02/08/2019 4:54 AM PDT Nurse Progress Note by Lizz Gill RN at 02/08/19453 Author: Lizz Gill RN Service: (none) Author Type: Registered Nurse Filed: 02/08/19456 Date of Service: 02/08/19453 Status: Signed Electronic Heat Seal Operator: Lizz Gill RN (Registered Nurse) Pt A&O, [...] 02/07/191935 Date of Service: 02/07/191918 Status: Signed Electronic Heat Seal Operator: Linden Alonzo MD (Physician) [facility] Service: NEPHROLOGY Progress Note Ramona Oconnor 39 y.o. [id number] 8127/8127-1 female [facility] Hospital Day: [...] 10/25/15 showed normal sized kidneys. She initiated CARPENTER'S ASSISTANT with PD 10/28/15. Primary manager of investigations GERD (gastroesophageal reflux disease) Hypercalcemia 09/07/2017 Hyperphosphatemia 10/28/2015 Hypocalcemia 10/28/2015 Hypokalemia 06/04/2017 Itching 10/28/2015 Metabolic acidosis 10/28/2015 Obesity Peritonitis associated with peritoneal dialysis (HCC) 01/24/2017 Peritonitis due to infected peritoneal dialysis catheter (HCC) 12/08/2018 Secondary hyperparathyroidism (HCC) Uremia 10/28/2015 Past Surgical History Procedure Laterality Date CATHETER REMOVAL N/A 02/04/2019 Procedure: DIALYSIS CATHETER - REMOVAL; Surgeon: Qasim Pederson MD; Location: [facility] MAIN OR ; Service: Vascular; Laterality: N/A; Infected PD catheter removal ESOPHAGOGASTRODUODENOSCOPY N/A 09/10/2017 Procedure: ESOPHAGOGASTRODUODENOSCOPY; Surgeon: Beena Peters MD; Location: [facility] ENDOSCOP Y; Service: Gastroenterology; Laterality: N/A; PERITONEAL CATHETER INSERTION N/A 10/28/2015 Procedure: LAPAROSCOPIC - PERITONEAL DIALYSIS CATH INSERTION; Surgeon: Mundo Ramos MD; Lo cation: [facility] MAIN OR; Service: Vascular; Laterality: [...] hemodialysis.The patient has been evaluated by his manager of investigations who determined that he is a suitable candidate to undergo hemodialysis. The patient has received appropriate training re garding hemodialysis. The patient understands the benefit and purpose of the planned procedu re of tunneled hemodialysis catheter insertion is to allow the patient to receive hemodialys is while waiting for a eviction specialist hemodialysis access such as arteriovenous venous fistula [...] Edward Sign Date/Time: 2019 11:54 AM [employer] Water Filler Pelvis Transabd/endovaginal Result Date: 02/01/2019 ULTRASOUND PELVIS, [...] earlier and charting completed later Dictation software, [employer], used which may contain error for similar sounding words even af ter review. Personal communication requested for any clarification. Portions of my notes may have been carried over for continuity of care. Esteban Yoder MD - 1:13 PM PDT Progress Notes by Esteban العلي MD at 02/07/19 1313 Author: Esteban العلي MD Service: Internal Medicine Author Type: Physician Filed: 02/07/19 7607 Date of Service: 02/07/19 1313 Status: Signed Electronic Heat Seal Operator: Esteban العلي MD (Physician) [facility] Service: Hospitalist Progress Note Hospital Day: LOS: 6 days SUBJECTIVE Feels Nausea, but better with meds No pain Patient Summary: Ms. 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 Scheduled Medications [...] Edward Sign Date/Time: 2019 11:54 AM [employer] Water Filler Pelvis Transabd/endovaginal Result Date: 02/01/2019 1. Moderate [...] per renal Chair time noted. MWF at [facility]. S/p tunneled catheter placement 02/05/19 Continue P [...] and management as well as Computerized Physician Customer Service Security Officer. Disposition: Home Code Status: Full Code Esteban العلي MD 02/07/2019 1:13 PM onversion Transactio n, Provider Unknown - 02/07/2019 3:44 AM PDT Nurse Progress Note by Marixa Terrazas RN at 02/07/19 9117 Author: Marixa Terrazas RN Service: (none) Author Type: Registered Nurse Filed: 02/07/19 0613 Date of Service: 02/07/19 0344 Status: Signed Electronic Heat Seal Operator: Marixa Terrazas RN (Registered Nurse) BP's soft, [...] 1738 Date of Service: 02/06/191822 Status: Signed Electronic Heat Seal Operator: Linden Alonzo MD (Physician) [facility] Service: NEPHROLOGY Progress Note Ramona Oconnor 39 y.o. [id number] 8127/8127-1 female [facility] Hospital Day: LOS: 5 days [...] 10/25/15 showed normal sized kidneys. She initiated CARPENTER'S ASSISTANT with PD 10/28/15. Primary manager of investigations GERD (gastroesophageal reflux disease) Hypercalcemia 09/07/2017 Hyperphosphatemia 10/28/2015 Hypocalcemia 10/28/2015 Hypokalemia 06/04/2017 Itching 10/28/2015 Metabolic acidosis 10/28/2015 Obesity Peritonitis associated with peritoneal dialysis (HCC) 01/24/2017 Peritonitis due to infected peritoneal dialysis catheter (HCC) 12/08/2018 Secondary hyperparathyroidism (HCC) Uremia 10/28/2015 Past Surgical History Procedure Laterality Date CATHETER REMOVAL N/A 02/04/2019 Procedure: DIALYSIS CATHETER - REMOVAL; Surgeon: Qasim Pederson MD; Location: [facility] MAIN OR ; Service: Vascular; Laterality: N/A; Infected PD catheter removal ESOPHAGOGASTRODUODENOSCOPY N/A 09/10/2017 Procedure: ESOPHAGOGASTRODUODENOSCOPY; Surgeon: Beena Peters MD; Location: [facility] ENDOSCOP [facility]; Service: Gastroenterology; Laterality: N/A; PERITONEAL CATHETER INSERTION N/A 10/28/2015 Procedure: LAPAROSCOPIC - PERITONEAL DIALYSIS CATH INSERTION; Surgeon: Mundo Ramos MD; Lo cation: [facility] MAIN OR; Service: Vascular; Laterality: [...] hemodialysis.The patient has been evaluated by his manager of investigations who determined that he is a suitable candidate to undergo hemodialysis. The patient has received appropriate training re garding hemodialysis. The patient understands the benefit and purpose of the planned procedu re of tunneled hemodialysis catheter insertion is to allow the patient to receive hemodialys is while waiting for a retirement hemodialysis access such as arteriovenous venous fistula [...] Edward Sign Date/Time: 2019 11:54 AM [employer] Water Filler Pelvis Transabd/endovaginal Result Date: 02/01/2019 ULTRASOUND PELVIS, [...] earlier and charting completed later Dictation software, [employer], used which may contain error for similar [...] 1312 Date of Service: 02/06/191752 Status: Signed Electronic Heat Seal Operator: Esteban العلي MD (Physician) [facility] Service: Hospitalist Progress Note Hospital Day: LOS: 5 days SUBJECTIVE Feels tired, nausea Patient Summary: Ms. 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 Scheduled Medications [...] Edward Sign Date/Time: 2019 11:54 AM [employer] Water Filler Pelvis Transabd/endovaginal Result Date: 02/01/2019 1. Moderate [...] Started HD. Chair time noted. MWF at [facility]. S/p tunneled catheter placement 02/05/19 Continue P [...] and management as well as Computerized Physician Customer Service Security Officer. Disposition: Home Code Status: Full Code Esteban العلي MD 02/06/2019 5:53 PM Paige Correa, Alonzo llanes MD - 02/06/2019 11:30 AM PDTFormatting of this note might be different from the ave ginal. Progress Notes by Alonzo Correa MD at 02/06/19 1130 Author: Alonzo Correa MD Service: Infectious Disease Author Type: Alex uma Filed: 02/07/19 1102 Date of Service: 02/06/19 1130 Status: Signed Electronic Heat Seal Operator: Alonzo Correa MD (Physician) [facility] Service: Infectious Diseases Progress Note Hospital Day: [...] 02/06/19658 Date of Service: 02/06/19658 Status: Signed Electronic Heat Seal Operator: Phillip Charles RPH (Pharmacist) Clinical Pharmacy Note: [...] 02/06/19639 Date of Service: 02/06/19443 Status: Signed Electronic Heat Seal Operator: Marixa Terrazas RN (Registered Nurse) BP's soft, [...] 02/05/191817 Date of Service: 02/05/191817 Status: Signed Electronic Heat Seal Operator: Phillip Charles RPH (Pharmacist) Clinical Pharmacy Note: [...] 6:12 PM PDT Nurse Progress Note by Zabrian Rubio RN at 02/05/191811 Author: Zabrina Rubio RN Service: (none) Author Type: Registered Nurse Filed: 02/05/191820 Date of Service: 02/05/191811 Status: Signed Electronic Heat Seal Operator: Zabrina Rubio RN (Registered Nurse) Pt had [...] Date of Service: 02/05/19 1637 Status: Signed Electronic Heat Seal Operator: Alyce Sparks MD (Physician) [facility] Service: Hospitalist Progress Note Hospital Day: LOS: 4 days SUBJECTIVE Patient Summary: Ms. 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 Events Overnight: [...] Cervantes Sign Date/Time: 02/01/2019 4:36 PM Us [employer] And Water Filler Pelvis Transabd/endovaginal Result Date: 02/01/2019 1. Moderate [...] Date of Service: 02/05/19 1544 Status: Signed Electronic Heat Seal Operator: Soo Portillo (Coordinator) Patients chair time is: Friday @ 11:30am first day 02-08-19 [facility] [address] [address] Thank you Marguerite Hernandez LMT - 2019 2:14 PM PDT Therapy Progress Note by DIANA Armendariz at 02/05/19 141 Author: DIANA Armendariz Service: (none) Author Type: Massage Therapist Filed: 02/05/19 141 Date of Service: 02/05/191413 Status: Signed Electronic Heat Seal Operator: DIANA Armendariz (Massage Therapist) 02/05/19 141 Massage Therapy Interventions Locations Feet Massage Therapy Technique Effleurage;Petrissage;Syrian massage Response to treatment Decreased muscle tension Linden Kincaid M D - 2019 11:46 AM PDT Progress Notes by Linden Alonzo MD at 02/05/19 1146 Author: Linden Alonzo MD Service: Nephrology Author Type: Physician Filed: 02/07/19 1933 Date of Service: 02/05/191145 Status: Signed Electronic Heat Seal Operator: Linden Alonzo MD (Physician) [facility] Service: NEPHROLOGY Progress Note Ramona Oconnor 39 y.o. [id number] 8127/8127-1 female [facility] Day: LOS: 4 days Patient with [...] 10/25/15 showed normal sized kidneys. She initiated CARPENTER'S ASSISTANT with PD 10/28/15. Primary manager of investigations GERD (gastroesophageal reflux disease) Hypercalcemia 09/07/2017 Hyperphosphatemia 10/28/2015 Hypocalcemia 10/28/2015 Hypokalemia 06/04/2017 Itching 10/28/2015 Metabolic acidosis 10/28/2015 Obesity Peritonitis associated with peritoneal dialysis (HCC) 01/24/2017 Peritonitis due to infected peritoneal dialysis catheter (HCC) 12/08/2018 Secondary hyperparathyroidism (HCC) Uremia 10/28/2015 Past Surgical History Procedure Laterality Date CATHETER REMOVAL N/A 02/04/2019 Procedure: DIALYSIS CATHETER - REMOVAL; Surgeon: Qasim Pederson MD; Location: [facility] MAIN OR ; Service: Vascular; Laterality: N/A; Infected PD catheter removal ESOPHAGOGASTRODUODENOSCOPY N/A 09/10/2017 Procedure: ESOPHAGOGASTRODUODENOSCOPY; Surgeon: Beena Peters MD; Location: [facility] ENDOSCOP [facility]; Service: Gastroenterology; Laterality: N/A; PERITONEAL CATHETER INSERTION N/A 10/28/2015 Procedure: LAPAROSCOPIC - PERITONEAL DIALYSIS CATH INSERTION; Surgeon: Mundo Ramos MD; Lo cation: [facility] MAIN OR; Service: Vascular; Laterality: [...] Table: I/O last 3 completed shifts: In: 65714 [P.O.:800; I.V.:765; Other:51087] Out: 17148 [Other:65750] Weight change: Examination: APPEARANCE: The patient is [...] in the associated interpretation and report. Us Air And Water Filler Pelvis Transabd/endovaginal Result Date: 02/01/2019 ULTRASOUND PELVIS, [...] earlier and charting completed later Dictation software, [employer], used which may contain error for similar [...] Date of Service: 02/05/19 1121 Status: Addendum Electronic Heat Seal Operator: Lilo Iqbal RN (Registered Nurse) Related Notes: [...] time for pt M/W/F @ 11:30 at [facility], starting 02/08. Abx script will need to be faxed to [facility] #[phone] p rior to discharge. onver patric Transaction, Provider Unknown - 2019 11:00 AM PDT Nurse Progress Note by Zabrina Rubio RN at 02/05/19 1100 Author: Zabrina Rubio RN Service: (none) Author Type: Registered Nurse Filed: 02/05/19 1200 Date of Service: 02/05/19 1100 Status: Signed Electronic Heat Seal Operator: Zabrina Rubio RN (Registered Nurse) This RN notified by [facility] that pt was c/o pain. Upon assessment [...] Date of Service: 02/05/19 1052 Status: Signed Electronic Heat Seal Operator: Alonzo Correa MD (Physician) [facility] Service: Infectious Diseases Progress Note Hospital Day: [...] Value Units Date/Time Fluid culture w/gram stain [[id number]] Collected: 02/01/19 0751 Specimen: Body Fluid from Peritoneal Fluid Updated: 02/05/19 0646 Specimen Description PERITONEAL FLUID GRAM STAIN 1+ GRAM STAIN WBC'S SEEN GRAM STAIN NO ORGANISMS SEEN CULTURE NO GROWTH 4 DAYS Catheter tip culture [[id number]] Collected: 02/04/19 1705 Specimen: Catheter Tip Updated: 02/04/19 1900 Blood Culture Set 2 [[id number]] Collected: 02/01/19316 Specimen: Blood from Blood Updated: 02/02/19 1335 Specimen Description BLOOD CULTURE NO GROWTH AT THIS TIME Blood Culture Set 1 [[id number]] Collected: 02/01/19316 Specimen: Blood from Blood Updated: [...] 0727 Date of Service: 02/05/19715 Status: Addendum Electronic Heat Seal Operator: Qasim Pederson MD (Physician) Related Notes: Original Note by Man Jeronimo PA-C (Physician Steelworker - Certified) fi led at 02/05/19 0722 [facility] Service: Vascular Surgery Progress Note Hospital Day: LOS: 4 days Post-Op Day: 1 Day Post-Op SUBJECTIVE Patient Summary: The patient is a 38 y.o. female with significant past medical history of hypertension, diverticulitis, and end stage renal disease on peritoneal dialysis who pre sented to [facility] Emergency Department with complaints for worsening abdominal pain and nausea. The patient was admitted to [facility] about one month ago (01/05/19 - 01/09/19) after developing ab dominal pain and leukocytosis. She was diagnosed with bacterial peritonitis secondary to div erticulitis. She was treated with intravenous and intraperitoneal antibiotics. She was disch arged on 01/09/2019 from [facility]. She did well for a few weeks but developed severe nausea and ab dominal pain and presented to [place]' ED. She was eventually transferred to [facility] for f urther evaluation and [...] with peritoneal dialysis catheter removal today at [facility] Operating Room. Moderate Sedation Presedation Assessment completed [...] 0404 Date of Service: 02/05/19138 Status: Signed Electronic Heat Seal Operator: Marixa Terrazas RN (Registered Nurse) BP's soft [...] 02/04/191849 Date of Service: 02/04/191846 Status: Addendum Electronic Heat Seal Operator: Zabrina Rubio RN (Registered Nurse) Related Notes: [...] Date of Service: 02/04/19 1433 Status: Signed Electronic Heat Seal Operator: Alyce Sparks MD (Physician) [facility] Service: Hospitalist Progress Note Hospital Day: LOS: 3 days SUBJECTIVE Patient Summary: Ms. 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 Moderate [...] 02/04/191122 Date of Service: 02/04/191122 Status: Signed Electronic Heat Seal Operator: Torrie Whelan RPH (Pharmacist) Discussed with Dr. [...] Date of Service: 02/04/19 1121 Status: Signed Electronic Heat Seal Operator: Alonzo Correa MD (Physician) [facility] Service: Infectious Diseases Progress Note Hospital Day: [...] Value Units Date/Time Fluid culture w/gram stain [[id number]] Collected: 02/01/19 0751 Specimen: Body Fluid from Peritoneal Fluid Updated: 02/04/19 0711 Specimen Description PERITONEAL FLUID GRAM STAIN 1+ GRAM STAIN WBC'S SEEN GRAM STAIN NO ORGANISMS SEEN CULTURE NO GROWTH 3 DAYS Blood Culture Set 2 [[id number]] Collected: 02/01/19316 Specimen: Blood from Blood Updated: 02/02/19 1335 Specimen Description BLOOD CULTURE NO GROWTH AT THIS TIME Blood Culture Set 1 [[id number]] Collected: 02/01/19316 Specimen: Blood from Blood Updated: [...] The patient will likely start hemodialysis tomorrow patient carrier after. Fluid culture is being held for 10 days. So far day #5 of antibiotic therapy. Discussed with Dr. Bridger Up MD, MPH Infectious Diseases 02/04/2019 onvers ion Transaction, Provider Unknown - 02/04/2019 9:11 AM PDT Nurse Progress Note by Zabrina Rubio RN at 02/04/19910 Author: Zabrina Rubio RN Service: (none) Author Type: Registered Nurse Filed: 02/04/19911 Date of Service: 02/04/19910 Status: Signed Electronic Heat Seal Operator: Zabrina Rubio RN (Registered Nurse) Spoke to [...] 0525 Date of Service: 02/04/19403 Status: Signed Electronic Heat Seal Operator: Marixa Terrazas RN (Registered Nurse) BP's 90-100 [...] Date of Service: 02/03/19 141 Status: Signed Electronic Heat Seal Operator: Lilo Iqbal RN (Registered Nurse) CM attended [...] 1536 Date of Service: 02/03/197 Status: Addendum Electronic Heat Seal Operator: Jamar Montoya MD (Physician) Related Notes: Original Note by Jamar Montoya MD (Physician) filed at 02/03/19 1533 [facility] Service: Hospitalist Progress Note Hospital Day: LOS: [...] Cervantes Sign Date/Time: 02/01/2019 4:36 PM [employer] Filler Pelvis Transabd/endovaginal Result Date: 02/01/2019 1. Moderate [...] Inpatient. Code Status: Full Code Dictation and ladle patcher or software, [employer], used which may contain error for similar [...] 02/03/192133 Date of Service: 02/03/19827 Status: Signed Electronic Heat Seal Operator: Alonzo Correa MD (Physician) [facility] Service: Infectious Diseases Progress Note Hospital Day: LOS: 2 days Post-Op Day: * No surgery date entered * CC: Follow up on peritoneal dialysis catheter associated peritonitis SUBJECTIVE/OVERNIGHT EVENTS The patient has been afebrile, with decrease in her abdominal pain. The patient white bloo d cell count has trended down. The patient has discussed with manager of investigations regarding removal of her peritoneal dialysis ca [...] Value Units Date/Time Fluid culture w/gram stain [[id number]] Collected: 02/01/19 0751 Specimen: Body Fluid from Peritoneal Fluid Updated: 02/03/19 1026 Specimen Description PERITONEAL FLUID GRAM STAIN 1+ GRAM STAIN WBC'S SEEN GRAM STAIN NO ORGANISMS SEEN CULTURE NO GROWTH 2 DAYS Blood Culture Set 2 [[id number]] Collected: 02/01/19 0317 Specimen: Blood from Blood Updated: 02/02/19 1335 Specimen Description BLOOD CULTURE NO GROWTH AT THIS TIME Blood Culture Set 1 [[id number]] Collected: 02/01/19 031 Specimen: Blood from Blood Updated: 02/02/19 1335 Specimen Description BLOOD CULTURE NO GROWTH AT THIS TIME Body fluid cell count [[id number]] Collected: 02/01/19 0753 Specimen: Other from Peritoneal Fluid Updated: 02/01/19 0907 FLUID TYPE PERITONEAL FLUID COLOR YELLOW APPEARANCE HAZY RBC'S <10,000 /mm3 TOTAL NUCLEATED CELLS 622 /mm3 NEUTROPHILS 48 % LYMPHOCYTES 5 % MONOCYTES/MACROPHAGES 46 % Mesothelial Cells 1 % CELLS COUNTED 100 MRSA by PCR [[id number]] Collected: 02/01/19 0328 Specimen: Nasopharyngeal from Nares(Nose) [...] with clinical pharmacist and microbiology lab. Alonzo pU MD, MPH Infectious Diseases 02/03/2019 onvers ion Transaction, Provider Unknown - 02/03/2019 5:09 AM PDT Nurse Progress Note by Samira García RN at 02/03/19508 Author: Samira García RN Service: (none) Author Type: Registered Nurse Filed: 02/03/19 05 Date of Service: 02/03/19508 Status: Signed Electronic Heat Seal Operator: Samira García RN (Registered Nurse) Pt had [...] 02/02/192010 Date of Service: 02/02/192006 Status: Signed Electronic Heat Seal Operator: Alonzo Correa MD (Physician) [facility] Service: Infectious Diseases Progress Note Hospital Day: [...] Value Units Date/Time Fluid culture w/gram stain [[id number]] Collected: 02/01/19 075 Specimen: Body Fluid from Peritoneal Fluid Updated: 02/02/19 181 Specimen Description PERITONEAL FLUID GRAM STAIN 1+ GRAM STAIN WBC'S SEEN GRAM STAIN NO ORGANISMS SEEN CULTURE NO GROWTH AT THIS TIME Blood Culture Set 2 [[id number]] Collected: 02/01/19316 Specimen: Blood from Blood Updated: 02/02/19 133 Specimen Description BLOOD CULTURE NO GROWTH AT THIS TIME Blood Culture Set 1 [[id number]] Collected: 02/01/19316 Specimen: Blood from Blood Updated: 02/02/19 133 Specimen Description BLOOD CULTURE NO GROWTH AT THIS TIME Body fluid cell count [[id number]] Collected: 02/01/19 075 Specimen: Other from Peritoneal Fluid Updated: 02/01/19 0907 FLUID TYPE PERITONEAL FLUID COLOR YELLOW APPEARANCE HAZY RBC'S <10,000 /mm3 TOTAL NUCLEATED CELLS 622 /mm3 NEUTROPHILS 48 % LYMPHOCYTES 5 % MONOCYTES/MACROPHAGES 46 % Mesothelial Cells 1 % CELLS COUNTED 100 MRSA by PCR [[id number]] Collected: 02/01/19 0328 Specimen: Nasopharyngeal from Nares(Nose) [...] 02/02/191826 Date of Service: 02/02/191805 Status: Signed Electronic Heat Seal Operator: Marixa Juarez RN (Registered Nurse) Tmax this [...] 1906 Date of Service: 02/02/191246 Status: Signed Electronic Heat Seal Operator: Jamar Montoya MD (Physician) [facility] Service: Hospitalist Progress Note Hospital Day: LOS: [...] Cervantes Sign Date/Time: 02/01/2019 4:36 PM [employer] Pelvis Transabd/endovaginal Result Date: 02/01/2019 1. Moderate [...] Inpatient. Code Status: Full Code Dictation and ladle patcher or software, Dragon, used which may contain [...] 02/02/19738 Date of Service: 02/02/19737 Status: Signed Electronic Heat Seal Operator: Adonis Bonner RN (Registered Nurse) UF 929 ml with peritoneal dialysis over night. onver patric Transaction, Provider Unknown - 02/02/2019 6:07 AM PDT Nurse Progress Note by Samira García RN at 02/02/19606 Author: Samira García RN Service: (none) Author Type: Registered Nurse Filed: 02/02/19606 Date of Service: 02/02/19606 Status: Signed Electronic Heat Seal Operator: Samira García RN (Registered Nurse) Phenergan given x1. Lowest SBP 94. End of shift audit complete. onver patric Transaction, Provider Unknown - 02/01/2019 6:02 PM PDT Nurse Progress Note by Marixa Juarez RN at 02/01/191801 Author: Marixa Juarez RN Service: (none) Author Type: Registered Nurse Filed: 02/01/191803 Date of Service: 02/01/191801 Status: Signed Electronic Heat Seal Operator: Marixa Juarez RN (Registered Nurse) VS stable [...] 02/01/191553 Date of Service: 02/01/191553 Status: Signed Electronic Heat Seal Operator: Torrie Whelan RPH (Pharmacist) Intraperitoneal Dialysis-Ceftazidime Peritoneal [...] Date of Service: 02/01/19 1528 Status: Signed Electronic Heat Seal Operator: Lilo Iqbal RN (Registered Nurse) 02/01/19 1500 [...] Yes Name of Pharmacy [facility] Previous home health equipment No Anticipated Disposition Facility Type Home Met with pt and discussed discharge planning, Pt is a 38 y.o., female who lives with her sp emmanuel Woodall #[phone] and her sister Lydia Palm #[phone] in a 2 [address] with 1 [address] ep to enter. Pt was last discharged from [facility] on 01/09. Pt's spouse assists pt with ADL's. Pt is independent with mobility and uses no DME's, oxygen, or anticoagulation. Pt receives beba toneal dialysis through [facility]. Pt is a member of the [employer] and her contact there is Lorna #[phone]. Pt's CM through [employer] is Clarita #[phone]. Patient's PCP is: JUAN F SAMPSON Patient's [...] 02/01/2019 2:32 PM PDT Pharmacy Note by Torire Whelan RPH at 02/01/19 143 Author: Torrie Whelan RPH Service: Pharmacy Author Type: Pharmacist Filed: 02/01/191433 Date of Service: 02/01/191431 Status: Signed Electronic Heat Seal Operator: Torrie Whelan RPH (Pharmacist) Antimicrobial Stewardship Team [...] 02/01/191203 Date of Service: 02/01/191203 Status: Signed Electronic Heat Seal Operator: Felicitas Bender RPH (Pharmacist) Clinical Pharmacy Note: [...] fit our SHAWN protocol. Per the [facility] PD dosing recommmendations, it is recommended that levels are sacrlett wn every 3- 5 days and if [...] 02/01/1937 Date of Service: 02/01/19733 Status: Signed Electronic Heat Seal Operator: April Madsen RN (Registered Nurse) ordered for culture, cell count and gram stain of PD fluid. This second class welder able to draw 35ml of peritoneal fluid from pt's PD cath. Sent to lab. onver patric Transaction, Provider Unknown - 02/01/2019 6:26 AM PDT Pharmacy Note by Tisha Vanegas RPH at 02/01/19625 Author: Tisha Vanegas RPH Service: Pharmacy Author Type: Pharmacist Filed: 02/01/19625 Date of Service: 02/01/19625 Status: Signed Electronic Heat Seal Operator: Tisha Vanegas RPH (Pharmacist) Initiation of Vancomycin Pharmacy Dosing Ramona Oconnor 38 y.o. female 1.575 m (5' 2") 81.3 kg (179 lb 3.2 oz) Body mass index is 32.78 kg/m. [place] body weight: 50.1 kg (110 lb 7.2 [...] 02/01/19404 Date of Service: 02/01/19404 Status: Signed Electronic Heat Seal Operator: Tisha Vanegas RPH (Pharmacist) Zosyn Extended Infusion [...] 02/01/19 Date of Service: 02/01/19308 Status: Signed Electronic Heat Seal Operator: Tisha Vanegas RPH (Pharmacist) Clinical Pharmacy Note: [...] | Basophils | performed at [facility], [address] | K/uL | LAB | | | | [address], | | | | | | [place] [address] | | | | + + + [...] | | | | | performed at [facility], [address] | | | | | | [facility], | | | | | | [place] [address] | | | | + + + [...] | Basophils | performed at [facility], [address] | K/uL | LAB | | | | [address], | | | | | | [place] [address] | | | | + + + [...] | | | | | performed at [facility], [address] | | | | | | [facility], | | | | | | [place] [address] | | | | + + + [...] at | | | | | | [facility], [address] [place] [address] | | | | | | [place] | | | | | | [address] | | | | + + + [...] | | | | | | MDRD IDUT traceable | | | | | | equation.Testing | | | | | | performed at [facility], [address] | | | | | | [facility], | | | | | | [place] [address] | | | | + + + [...] | Basophils | performed at [facility], [address] | K/uL | LAB | | | | [address], | | | | | | [place] [address] | | | | + + + [...] | | | | | performed at [facility], [address] | | | | | | [facility], | | | | | | [place] [address] | | | | + + + [...] at | | | | | | [facility], [address] [facility] | | | | | | [place] | | | | | | [address] | | | | + + + [...] | | | | | | MDRD IDUT traceable | | | | | | equation.Testing | | | | | | performed at [facility], [address] | | | | | | [facility], | | | | | | [place] [address] | | | | + + + [...] | | | | | performed at [facility];[address] | | | | | | [address];[place], [place] | | | | | | [address] | | | | + + + [...] | | | | | performed at [facility];[address] | | | | | | [address];[place], [place] | | | | | | [address] | | | | + + + [...] | | | | | | MDRD IDUT traceable | | | | | | equation.Testing | | | | | | performed at [facility], [address] | | | | | | [facility], | | | | | | [place] [address] | | | | + + + [...] LAB | | | | performed at [facility];[address] | | | | | | [address];[place], [place] | | | | | | [address] | | | | | | | [...] | | | | | performed at [facility], [address] | | | | | | [facility], | | | | | | [place] [address] | | | | + + + [...] | | | Random | performed at [facility] | | LAB | | | | [address];[place], [place] | | | | | | [address] | | | | + + + [...] LAB | | | | performed at [facility] | | | | | | [address];[place], [place] | | | | | | [address] | | | | | | | [...] [address], | | | | | | [place] [address] | | | | + + + [...] | | | | | performed at [facility], [address] | | | | | | [address], | | | | | | [place] [address] | | | | + + + [...] | | | | | performed at [facility];[address] | | | | | | [address];[place], [place] | | | | | | [address] | | | | + + + [...] | | | | | performed at [facility] | | | | | | [address];[place], [place] | | | | | | [address] | | | | + + + [...] [place] | | | | | | [address] | | | | + + + [...] | | | | | performed at [facility], [address] | | | | | | [facility], | | | | | | [place] [address] | | | | + + + [...] at | | | | | | [facility], [address] [facility] | | | | | | [place] | | | | | | [address] | | | | + + + [...] | | | | | performed at [facility];[address] | | | | | | [facility];[place], [place] | | | | | | [address] | | | | + + + [...] | | | Random | performed at [facility];[address] | | LAB | | | | [address];[place], [place] | | | | | | [address] | | | | + + + [...] | | | | | | MDRD IDUT traceable | | | | | | equation.Testing | | | | | | performed at [facility];[address] | | | | | | [facility];[place], [place] | | | | | | [address] | | | | + + + [...] hemodialysis.The patient has been evaluated by his manager of investigations who | | | determined that he [...] hemodialysis.The patient has been evaluated by his manager of investigations who | | determined that he is a suitable candidate to undergo hemodialysis. The patient has | | received appropriate training regarding hemodialysis. The patient understands the | | benefit and purpose of the planned procedure of tunneled hemodialysis catheter insertion | | is to allow the patient to receive hemodialysis while waiting for a retirement | | hemodialysis access such as arteriovenous [...] EXTERNAL | | | | performed at [facility];[address] | mmol/L | LAB | | | | [address];[place], [place] | | | | | | [address] | | | | + + + [...] EXTERNAL | | | | performed at [facility];[address] | mmol/L | LAB | | | | [address];[place], [place] | | | | | | [address] | | | | + + + [...] | | | | | performed at [facility] | | | | | | [address];[place] | | | | | | [address] | | | | + + + [...] | | | QUALITATIVE | performed at [facility];[address] | | LAB | | | | [address];[place] | | | | | | [address] | | | | + + + [...] | | | | | performed at [facility];[address] | | | | | | [facility];[place], [place] | | | | | | [address] | | | | + + + [...] at | | | | | | [facility], [address] [place] [address] | | | | | | [place] | | | | | | [address] | | | | + + + [...] | | | performed at [facility], [address] | | LAB | | | | [address], | | | | | | [place] [address] | | | | + + + [...] | | | performed at [facility], [address] | | LAB | | | | [address], | | | | | | [place] [address] | | | | + + + [...] | | | Random | performed at [facility];[address] | | LAB | | | | [address];[place] | | | | | | [address] | | | | + + + [...] | | | | | performed at [facility], [address] | | | | | | [facility], | | | | | | [place] [address] | | | | + + + [...] at | | | | | | [facility], [address] | | | | | | [place] | | | | | | [address] | | | | + + + [...] | | | | | performed at [facility], [address] | | | | | | [address], | | | | | | [place] [address] | | | | + + + [...] at | | | | | | [facility];[address] [facility] | | | | | | [address]vd;[place] [address] | | | | + + + [...] | APPEARANCE HAZY RBC'S | | | <775[address] TOTAL | | | NUCLEATED CELLS 622 NEUTROPHILS | | | 48 LYMPHOCYTES | | | 5 MONOCYTES/MACROPHAGES | | | 46 Mesothelial Cells | | | 1 CELLS COUNTED 100 | | | Testing performed at [facility];[address] [place] [address];[place] [address] | | + + + + +---------+ [...] EXTERNAL | | | | performed at [facility];[address] | mmol/L | LAB | | | | [address];[place], [place] | | | | | | [address] | | | | + + + [...] at | | | | | | [facility];[address] [place] [address] | | | | | | [facility];[place] [address] | | | | + + + [...] + + | Historically converted procedure from [employer] Epic environment | EXTERNAL LAB | + [...] EXTERNAL | | | | performed at [facility];[address] | mmol/L | LAB | | | | [address];[place], [place] | | | | | | [address] | | | | + + + [...] NEGATIVE Testing | | | performed at [facility];[address] [place] [address];[place] [address] | | + + + + +---------+ [...] | | | | | | at [facility];[address] [place] [address] | | | | | | [facility];[place] [address] | | | | + + + [...] at | | | | | | [facility];[address] [facility] | | | | | | Blvd;[place] [address] | | | | + + + [...] EXTERNAL | | | | performed at [facility] | | LAB | | | | [address];[place] | | | | | | [address] | | | | + + + [...] EXTERNAL | | | | performed at [facility];[address] | | LAB | | | | [address];[place] | | | | | | [address] | | | | + + + [...] | | | | | performed at [facility];[address] | | | | | | [facility];[place], [place] | | | | | | [address] | | | | + + + [...] | | | Fingerstick | performed at [facility];[address] | | LAB | | | | [address] | | | | | | [address] | | | | + + + [...] | Anemia in ESRD (end-stage renal disease) ([facility]) Anemia in chronic kidney disease | + + | Electrolyte imbalance risk Other specified conditions influencing health status | + + | Hypoalbuminemia Other disorders of plasma protein metabolism | + + | SIRS (systemic inflammatory response syndrome) ([facility]) Systemic inflammatory response | | syndrome, unspecified | + + | Infection associated with peritoneal dialysis catheter, initial encounter (HCC) | + + | Ovarian mass, right | + + documented in this encounter
--- OUTSIDE RECORDS SUMMARY | ~2020-04-05 | XMS | Encounter Summary ---
Demographics + + + | Address | [address] | | | [place] [address] | + + + | Home Phone [...] [place], [place] | | | | | [address] | | + + + + + | Lydia Palm | ECON | [place], [place] | | | | | [address] | | + + + + + | melinda METZ" | ECON | [place], [place] | | | reba | | [address] | | + + + + + | Jose C Oconnor | ECON | [place] | | | | | [place] | | | | | [address] | | + + + + + Care Team Providers + +------+ + | Care Games Dealer Name | Role | Phone | + [...] + + | 11/05/ | Emergency | [facility] | Kaitlynn Christen, DO [address] | Hyperkalemia | | 2019 | | MEDICAL [facility]ENTER | [address] | (Primary Dx); | | | | EMERGENCY CENTER | [place] [address] | Bleeding | | | | [address] | [phone] | | | | | [place], [place] | | | | | | [address] | | | | | | [phone] | | | +--------+ + + + [...] sent through Care Everywhere.Hyperkalemia, D ischarge Instructions (Montenegr[place])documented in this encounter Medications at Time of [...] (500), | | | | | | scientific publications editor Yahir Coker | | | | [...] 3 (L)Comment: GFR <60: | >60 | [facility] | | | GFR | [...] | | | | | performed at [facility] | | | | | | [facility];[place], [place] | | | | | | [address] | | | | + + + + + + + + | Specimen | + + | Blood | + + + + + + + | Performing | Address | City/State/Zipcode | Phone Number | | Organization | | | | + + + + + | [facility] | [address] | [place] [address] | [phone] | + + + + + CBC [...] | | | Absolute | performed at [facility];[address] | [address] | LABORATORY | | | | [address];[place], [place] | | | | | | [address] | | | | + + + + + + + + | Specimen | + + | Blood | + + + + + + + | Performing | Address | City/State/Zipcode | Phone Number | | Organization | | | | + + + + + | [facility] | [address] | [place] [address] | [phone] | + + + + + documented [...]
--- OUTSIDE RECORDS SUMMARY | ~2020-04-05 | XMS | Encounter Summary ---
Demographics + + + | Address | [address] | | | [place] [address] | + + + | Home Phone [...] [place], [place] | | | | | [address] | | + + + + + | Lydia Palm | ECON | [place], [place] | | | | | [address] | | + + + + + | melinda METZ" | ECON | [place], [place] | | | [place] | | [address] | | + + + + + | Jose C Oconnor | ECON | [address] | | | | | [place] | | | | | [address] | | + + + + + Care Team Providers + +------+ + | Care Oil Winterizer Name | Role | Phone | + [...] | | ([facility]) | | | | | [...] + + | 08/26/ | Anesthesia | [facility] | Dejuan Stubsb Jr., | | | 2019 | Event | [facility] | [place] [address] [facility] | | | | | OPERATING ROOM [address] | [place] [address] | | | | | [facility] | [phone] | | | | | [place], [place] | | | | | | [address] | | | | | | [phone] | | | +--------+ + + + [...] 09/08/19901 by | | eral | Forearm; yfjk-cmw-leitvw catheter | Brandin Gray RN | Fartun [...] Amrita Steele RN | | IV | hkvt-wsz-bzmpvi catheter system; | RN | | | [...] - 08/26/2019 7:19 PM PDT Anesthesia Airway Dwtxuisbh54/17/2019 | | 17:12Preprocedure check: patient identified, suction, [...] mg | | | | PRN, Starting [facility] 08/26/19 at | | 19 5:25 | | | | | 1725, Anesthesia Intra-op | | PM PDT | | | | + +-------+ +--------+---+---+ +---+---+ | | | +---+---+ + +-------+ +-----+---+---+ | ceFAZolin (ANCEF, KEFZOL) | Given | 08/26/20 | 2 g | | | | injection Intravenous, PRN, | | 19 5:18 | | | | | Starting [facility] 08/26/19 at 1718, | | PM PDT [...] | | | PRN, Starting [facility] 08/26/19 at | | PM PDT | [...]
--- OUTSIDE RECORDS SUMMARY | ~2020-04-05 | XMS | Encounter Summary ---
Demographics + + + | Address | [address] | | | [place] [address] | + + + | Home Phone [...] [place], [place] | | | | | [address] | | + + + + + | Lydia Palm | ECON | [place], [place] | | | | | [address] | | + + + + + | melinda METZ" | ECON | [place], [place] | | | reba | | [address] | | + + + + + | Jose C Oconnor | ECON | [place] | | | | | [place] | | | | | [address] | | + + + + + Care Team Providers + +------+ + | Care Taxation Inspector Name | Role | Phone | + +------+ + | Juan F Whitley DO | PCP | | + +------+ + Encounter Details +--------+ + + + + | Date | Type | Department | Care Team | Description | +--------+ + + + + | 09/06/ | Hospital | [facility] | Alexx Pate | Intractable | | 2017 - | Encounter | [facility] [address] | [address] | abdominal pain; | | | | [address] | [address] | Intractable vomiting | | 09/13/ | | [facility] [place] | [place] [address] | with nausea, | | 2017 | | [address] | [phone] | unspecified vomiting | | | | [phone] | | type; Hemorrhagic | | | [...] Service: Hospitalist Author Type: Physician Filed: 09/13/17 5540 Date of Service: 09/13/17 1320 Status: Signed C D Stripper: Ray Cruz DO (Physician) [facility] Service: Hospitalist Discharge Summary Date of Admission: 09/06/2017 Date of Discharge: 09/13/2017 Discharge Physician: Ray Cruz DO Treatment Team: Consulting Physician: Amrik Reyna MD Consulting Physician: Jose C Kaye DO Consulting Physician: Beena Peters MD Admitting Provider: Alexx Pate MD Discharge [...] Procedure: ESOPHAGOGASTRODUODENOSCOPY; Surgeon: Beena Peters MD; Location: [facility]; Service: Gastroenterology; Laterality: N/A; PERITONEAL CATHETER INSERTION N/A 10/28/2015 Procedure: LAPAROSCOPIC - PERITONEAL DIALYSIS CATH INSERTION; Surgeon: Mundo Ramos MD; Lo cation: [facility]; Service: Vascular; Laterality: N/A; No Known Allergies Prescriptions Prior to Admission Medication Sig Dispense Refill Last Dose ALPRAZolam (XANAX) 0.5 MG tablet Take 0.5 mg by mouth nightly as needed for Sleep. @0930 at 1000 amLODIPine (NORVASC) 2.5 MG tablet Take 2.5 mg by mouth daily. 06/03/2017@1400 ergocalciferol (DRISDOL) 97166 UNITS capsule Take 50,000 Units by mouth [...] No discharge procedures on file. Follow up: [facility] [address] [place] [address] Chago Rey MD [address] [facility] [id number] Beena Peters MD [address] [place] [address] Medication List START taking these medications HYDROcodone-acetaminophen [...] Refills: 0 Commonly known as: NORVASC ergocalciferol 66655 units capsule Refills: 0 Commonly known as: [...] documented as of this encounter Progress Notes hCago Rey MD - 09/13/2017 10:44 AM PDT Progress Notes by Chago Rey MD at 09/13/17 1044 Author: Chago Rey MD Service: Nephrology Author Type: Physician Filed: 09/22/17 8964 Date of Service: 09/13/171043 Status: Signed C D Stripper: Chago Rey MD (Physician) [facility] Service: Nephrology Progress Note Hospital Problem List: [...] 09/13/2017 I/O last 3 completed shifts: In: 96858 [P.O.:750; Other:08617] Out: 84138 [Other:49485] I/O this shift: In: 32053 [P.O.:640; Other:07454] Out: 26429 [Other:15599] Assessment: Ms. Oconnor is a 37 y.o. [...] ordered 6. Prot suppl stressed 7. No ANGELA need now 8. Strict I/O & daily [...] and discussions with the primary/consulting team. CHAGO ERY MD 09/13/2017 ose C Kaye DO - 09/13/2017 10:24 AM PDT Progress Notes by Jose C Kaye DO at 09/13/17 1024 Author: Jose C Kaye DO Service: (none) Author Type: Physician Filed: 09/13/17 1114 Date of Service: 09/13/17 1024 Status: Signed C D Stripper: Jose C Kaye DO (Physician) [facility] Service: Infectious Disease Progress Note [...] is doing better with her breakfast tod ayIris ERNST No fever, chills sweats. No nausea, vomiting [...] Full Code JOSE C KAYE DO 09/13/2017 Brandin Green MD - 09/12/2017 7:14 PM PDT Progress Notes by Brandin Cortez MD at 09/12/17 1913 Author: Brandin Cortez MD Service: Hospitalist Author Type: Physician Filed: 09/12/171916 Date of Service: 09/12/171913 Status: Signed C D Stripper: Brandin Cortez MD (Physician) [facility] Service: Hospitalist Progress Note Hospital [...] so was switched to lactulose. Subsequently: Dr Pteers has evaluated endoscopically. Antibiotics to be stopped [...] Psych: affect appropriate DATA Recent Labs Lab 09/12/1745509/11/1755509/10/17 0609/09/17 1022 WBC 10.90 10.22 10.63 11.31* HGB 12.2 11.8 11.6 11.1* HCT 35.6 34.9 34.9 32.2* PLT 300 333 305 289 NEUTOPHILPCT -- 77.87 78.69 81.02 MONOPCT -- 8.97 7.95 5.49 Recent Labs Lab 09/12/1745509/11/1756 09/10/17 06 NA 138 137 139 K 2.9* 3.0* 3.6 CL 98* 97* 98* CO2 27 27 29 BUN 24 29* 28* CREATININE 12.6* 13.0* 13* PROT 7.1 7.1 7.2 BILITOT 0.4 0.4 0.3 ALT 26 20 15 AST 28 19 16 Phosphorus: Lab Results Component Value Date PHOS 3.9 09/10/2017 Invalid input(s): LABALBU Recent Labs Lab 09/12/1745509/11/1755509/10/17 06 MG 2.2 2.3 2.1 No results for input(s): AMYLASE in the last 168 hours. No results for input(s): PHART, PO2ART, PMD9RGA, Y9NSMQNV, BEART in the last 168 hours. No [...] O ct 2016 3:38AM Referring Provider Line: [phone] ID: [id number] Ct Abdomen Pelvis With Iv [...] Sep 07 2017 1:06AM Referring Provider Line: [phone] ID: [id number] Ultrasound Abdomen, Gallbladder Result Date: 09/06/2017 Mildly distended gallbladder without evidence of cholelithiasis or acute cholecystitis. No bile duct obstruction. RADIA Electronically signed by Stepan Wiggins on Sep 06 2017 11: 45PM Referring Provider Line: [phone] ID: [id number] PROBLEM LIST Principal Problem: Epigastric [...] Right ovarian hemorrhagic cyst: Outpatient followup with [facility]. 5. Leukocytosis: improved Recent Labs Lab 09/12/17 [...] Notes by Janet Gutierrez RD at 09/12/17 1506 Author: Janet Gutierrez RD Service: (none) Author Type: Registered Dietitian Filed: 09/12/17 5036 Date of Service: 09/12/17 1505 Status: Signed C D Stripper: Janet Gutierrez RD (Registered Dietitian) 09/12/17 0019 Subjective Timepoint Follow up (M risk) Pt c/o RN reports pt has been unable to tolerate po. Pt in bathroom at time of visit. Vickiein g visit pt started puking up breakfast. Reported by Family Fluid / Beverage Intake Oral Fluids Amount Fluids ad kimberly. 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 Food Intake Amount of Food Pt's mom reports pt had Maltese toast for breakfast that stayed down until [...] Notes by Amrik Reyna MD at 09/12/17 3215 Author: Amrik Reyna MD Service: Nephrology Author Type: Physician Filed: 09/12/17 1500 Date of Service: 09/12/17 9736 Status: Signed C D Stripper: Amrik Reyna MD (Physician) PCP : [facility] LOS: 5 days Ramona Oconnor is a [...] teague at her monthly meeting with Dr. Rey was advised GI evaluation. Beginning Friday she [...] mother. 09/08/17 09/09/17 09/10/[address] Peters revealing Mild reflux esophagitis; mild gastritis diffusely, [...] 10/25/15 showed normal sized kidneys. 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 Primary magazine keeper is Dr. Rey Essential HTN Anemia of chronic renal failure [...] completed later after rounds. Dictation software, was [employer], used which may contain error for similar [...] chloride (PF) 10 [address] Q[address]H Dr. Rey will assume nephrology service as of 8 pm tonight. Jose C Bar DO - 1 11/12/2016 10:55 AM PDT Progress Notes by Jose C Kaye DO at 09/12/17 1058 Author: Jose C Kaye DO Service: (none) Author Type: Physician Filed: 09/12/17 1133 Date of Service: 09/12/17 1050 Status: Signed C D Stripper: Jose C Kaye DO (Physician) [facility] Service: Infectious Disease Progress Note [...] Notes by Amrik Reyna MD at 09/11/17 3166 Author: Amrik Reyna MD Service: Nephrology Author Type: Physician Filed: 09/11/17 3497 Date of Service: 09/11/17 4355 Status: Signed C D Stripper: Amrik Reyna MD (Physician) PCP : [facility] LOS: 4 days Ramona Oconnor is a [...] teague at her monthly meeting with Dr. Rey was advised GI evaluation. Beginning Friday she [...] mother. 09/08/17 09/09/17 09/10/[address] Peters revealing Mild reflux esophagitis; mild gastritis diffusely, [...] 10/25/15 showed normal sized kidneys. 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 Primary magazine keeper is Dr. Rey Essential HTN Anemia of chronic renal failure [...] completed later after rounds. Dictation software, was [employer], used which may contain error for similar [...] sucralfate 1 g Oral 4x Daily onversion Eddie rodgers, Provider Unknown - 09/11/2017 12:47 PM PDT Case Management by LUCILLE Grimaldo at 09/11/17 9570 Author: LUCILLE Grimaldo Service: (none) Author Type: Mainframe Analyst Filed: 09/11/17 2063 Date of Service: 09/11/17 8368 Status: Signed C D Stripper: LUCILLE Grimaldo (Mainframe Analyst) Discharge planning: Pt will return home when medically ready. KARTHIK left message for Lazaro tellez with [facility] . Pt is not expected to dischar ge for a few days. Jose C Bar DO - 09/11/2017 10:37 AM PDTFormatting of this note might be different from the ave ginal. Progress Notes by Jose C Kaye DO at 09/11/17 1037 Author: Jose C Kaye DO Service: (none) Author Type: Physician Filed: 09/11/17 1145 Date of Service: 09/11/17 1037 Status: Signed C D Stripper: Jose C Kaye DO (Physician) [facility] Service: Infectious Disease Progress Note [...] 09/11/172101 Date of Service: 09/11/17833 Status: Signed C D Stripper: Brandin Cortez MD (Physician) [facility] Service: Hospitalist Progress Note Hospital Day: LOS: 4 days SUBJECTIVE Patient Summary: Has ESRD on PD admitted for abd pain nausea vomiting and hiccups. PD fluid is suspicious for infection. On abx.ID following. Also spoke with GI who advised hugo fate and golyetely for constipation. Patient did not tolerate golytely so was switched to la ctulose. Dr Peters plans to do colonscopy today. Events Overnight: [...] 5.49 Recent Labs Lab 09/11/17 0556 09/10/17 0609/09/17 0555 NA 137 139 136 K 3.0* 3.6 2.9* CL 97* 98* 96* CO2 27 29 26 BUN 29* 28* 31* CREATININE 13.0* 13* 14* PROT 7.1 7.2 6.5 BILITOT 0.4 0.3 0.4 ALT 20 15 14 AST 19 16 16 Phosphorus: Lab Results Component Value Date PHOS 3.9 09/10/2017 Invalid input(s): LABALBU Recent Labs Lab 09/11/17 0556 09/10/17 0609/08/17 0452 MG 2.3 2.1 2.0 No results for input(s): AMYLASE in the last 168 hours. No results for input(s): PHART, PO2ART, JMR1MCA, B8KCFGIW, BEART in the last 168 hours. No [...] O ct 2016 3:38AM Referring Provider Line: [phone] ID: 109 Ct Abdomen Pelvis With Iv [...] Sep 07 2017 1:06AM Referring Provider Line: [phone] ID: [id number] Ultrasound Abdomen, Gallbladder Result Date: 09/06/2017 Mildly distended gallbladder without evidence of cholelithiasis or acute cholecystitis. No bile duct obstruction. RADIA Electronically signed by Stepan Wiggins on Sep 06 2017 11: 45PM Referring Provider Line: [phone] ID: [id number] PROBLEM LIST Principal Problem: Epigastric [...] Right ovarian hemorrhagic cyst: Outpatient followup with [facility]. 5. Leukocytosis: improved Recent Labs Lab 09/11/17 [...] rom the original. Pharmacy Note by Adenike Howard RPH at 09/11/17822 Author: Adenike Howard RPH Service: Pharmacy Author Type: Pharmacist Filed: 09/11/17822 Date of Service: 09/11/17822 Status: Signed C D Stripper: Adenike Howard RPH (Pharmacist) Vancomycin Monitoring Day 5 Pharmacy Dosing Scr = 13 WBC = 10.22 PD patient The Vanco Random this AM was 18.14 (15-20 mcg/ml). Sent Vanco 1gm for level less than 20 mcg/ml. Pharmacist; ADENIKE HOWARD 09/11/2017 8:23 AM Cesar Swann i, MD - 09/10/2017 1:49 PM PDTFormatting of this note might be different fro m the original. Progress Notes by Cesar Gatica MD at 09/10/17 8997 Author: Cesar Gatica MD Service: Hospitalist Author Type: Physician Filed: 09/10/17 9719 Date of Service: 09/10/17 0911 Status: Signed C D Stripper: Cesar Gatica MD (Physician) [facility] Service: Hospitalist Progress Note Hospital Day: LOS: 3 days SUBJECTIVE Patient Summary: Has ESRD on PD admitted for abd pain nausea vomiting and hiccups. PD fluid is suspicious for infection. On abx.ID following. Also spoke with GI who advised hugo fate and golyetely for constipation. Patient did not tolerate golytely so was switched to la ctulose. Dr Peters plans to do colonscopy today. Events Overnight: [...] hours. No results for input(s): PHART, PO2ART, LJT0GYE, Y4VFBSYS, BEART in the last 168 hours. No [...] O ct 2016 3:38AM Referring Provider Line: [phone] ID: [id number] Ct Abdomen Pelvis With Iv [...] Sep 07 2017 1:06AM Referring Provider Line: [id number] ID: [id number] Ultrasound Abdomen, Gallbladder Result Date: 09/06/2017 Mildly distended gallbladder without evidence of cholelithiasis or acute cholecystitis. No bile duct obstruction. RADIA Electronically signed by Stepan Wiggins on Sep 06 2017 11: 45PM Referring Provider Line: [phone] ID: [id number] PROBLEM LIST Principal Problem: Epigastric [...] dialysis. 3. Nausea and vomiting, improving. Added daviste Dr Peters to do EGD 3b Constipation Discussed with GI who advised go lytely but patient did not tolerate it so will start lactulose 4. Right ovarian hemorrhagic cyst. Outpatient followup with [facility]. 5. Leukocytosis, improved after antibiotics. 6. Hypokalemia. Defer to nephrology for further management. 7. DVT prophylaxis. Heparin. Code Status: Full Code Cesar Gatica MD 09/10/2017 1:49 PM Viri Moreno MD - 09/10/2017 10:28 AM PDT Progress Notes by Amrik Reyna MD at 09/10/17 1028 Author: Amrik Reyna MD Service: Nephrology Author Type: Physician Filed: 09/10/17 1034 Date of Service: 09/10/17 1028 Status: Signed C D Stripper: Amrik Reyna MD (Physician) PCP : [facility] LOS: 3 days Ramona Oconnor is a [...] teague at her monthly meeting with Dr. Rey was advised GI evaluation. Beginning Friday she [...] 10/25/15 showed normal sized kidneys. 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 Primary magazine keeper is Dr. Rey Essential HTN Anemia of chronic renal failure [...] pro calcitonin and leucocytosis without any alter chefornak diagnosis. Clinically she improved with improved nausea/abdominal [...] completed later after rounds. Dictation software, was [employer], used which may contain error for similar [...] Instructions Jose C Bar DO - 1 11/10/2016 9:13 AM PDT Progress Notes by Jose C Kaye DO at 09/10/17912 Author: Jose C Kaye DO Service: (none) Author Type: Physician Filed: 09/10/1746 Date of Service: 09/10/17912 Status: Signed C D Stripper: Jose C Kaye DO (Physician) [facility] Service: Infectious Disease Progress Note [...] 8:33 AM PDT Pharmacy Note by Adenike Howard RPH at 09/10/17832 Author: Adenike Howard RPH Service: Pharmacy Author Type: Pharmacist Filed: 09/10/17832 Date of Service: 09/10/17832 Status: Signed C D Stripper: Adenike Howard RPH (Pharmacist) Vancomycin Monitoring Day 4 Pharmacy Dosing Scr = 13 WBC = 10.63 Vanco Random at 0606 this AM is 22.4 mcg/ml (15-20 mcg/ml) This is a PD patient. No dose for level > 20 mcg/ml. INDICATION: Intra-abdominal infection; Peritonitis Phamacist; ADENIKE HOWARD 09/10/2017 8:33 AM Cesar Swann i, MD - 09/09/2017 12:45 PM PDTFormatting of this note might be different fro m the original. Progress Notes by Cesar Gatica MD at 09/09/17 7213 Author: Cesar Gatica MD Service: Hospitalist Author Type: Physician Filed: 09/09/17 3927 Date of Service: 09/09/17 0005 Status: Addendum C D Stripper: Cesar Gatica MD (Physician) Related Notes: Original Note by Cesar Gatica MD (Physician) filed at 09/09/17 7554 [facility] Service: Hospitalist Progress Note Hospital [...] 09/09/2017 Invalid input(s): LABALBU Recent Labs Lab 09/08/17451 MG 2.0 No results for input(s): AMYLASE in the last 168 hours. No results for input(s): PHART, PO2ART, RUT8WRI, U2ZEKAKY, BEART in the last 168 hours. No [...] O ct 2016 3:38AM Referring Provider Line: [phone] ID: 109 Ct Abdomen Pelvis With Iv Contrast Result Date: 09/07/2017 1. Heterogeneous somewhat complex appearing right adnexal abnormality measuring 4.9 x 4.5 c m (image 70 series 3), probably a hemorrhagic ovarian cyst. Further assessment recommended w [facility] pelvic ultrasound. 2. Again seen is a 1.3 cm left adrenal nodule, difficult to accuratel y characterize. No significant change from the prior 01/22/2017 study. Follow-up adrenal pro tocol CT recommended at January 2018. RADIA Electronically signed by Star Boyd MD on Sep 07 2017 1:06AM Referring Provider Line: [phone] ID: [id number] Ultrasound Abdomen, Gallbladder Result Date: 09/06/2017 Mildly distended gallbladder without evidence of cholelithiasis or acute cholecystitis. No bile duct obstruction. RADIA Electronically signed by Stepan Wiggins on Sep 06 2017 11: 45PM Referring Provider Line: [phone] ID: [id number] PROBLEM LIST Principal Problem: Epigastric [...] Right ovarian hemorrhagic cyst. Outpatient followup with [facility]. 5. Leukocytosis, improved after antibiotics. 6. Hypokalemia. Defer to nephrology for further management. 7. DVT prophylaxis. Heparin. Code Status: Full Code Cesar Gatica MD 09/09/2017 12:46 PM onversion Tr ansaction, Provider Unknown - 09/09/2017 11:34 AM PDTFormatting of this note might be differ ent from the original. Progress Notes by Sheila Tony RPH at 09/09/17 113 Author: Sheila Tony RPH Service: Pharmacy Author Type: Pharmacist Filed: 09/09/17 1134 Date of Service: 09/09/171133 Status: Signed C D Stripper: Sheila Tony RPH (Pharmacist) Vancomycin Monitoring Day [...] labs. Next trough to be obtained on 1 11/10/2016. 09/09/2017 11:32 AM Pharmacist: Sheila Tony Amrik Moreno MD - 09/09/2017 11:24 AM PDTFormatting of this note might be different from the or iginal. Progress Notes by Amrik Reyna MD at 09/09/17 1124 Author: Amrik Reyna MD Service: Nephrology Author Type: Physician Filed: 09/09/17 1130 Date of Service: 09/09/17 1124 Status: Signed C D Stripper: Amrik Reyna MD (Physician) PCP : [facility] LOS: 2 days Ramona Oconnor is a [...] teague at her monthly meeting with Dr. Rey was advised GI evaluation. Beginning Friday she [...] 10/25/15 showed normal sized kidneys. 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 Primary magazine keeper is Dr. Rey Essential HTN Anemia of chronic renal failure [...] pro calcitonin and leucocytosis without any alter chefornak diagnosis. Clinically she improved with improved nausea/abdominal [...] completed later after rounds. Dictation software, was [employer], used which may contain error for similar [...] DO Service: (none) Author Type: Physician Filed: 09/09/17929 Date of Service: 09/09/17652 Status: Signed C D Stripper: Jose C Kaye DO (Physician) [facility] Service: Infectious Disease Progress Note [...] Progress Note by Corine Bianchi RN at 09/08/17 2340 Author: Corine Bianchi RN Service: (none) Author Type: Registered Nurse Filed: 09/08/17 1834 Date of Service: 09/08/177 Status: Signed C D Stripper: Corine Bianchi RN (Registered Nurse) Patient unable to tolerate Golytely. Antiemetics given with no relief. Doctor Gavi esteban. onver patric Transaction, Provider Unknown - 09/08/2017 4:49 PM PDT Case Management by LUCILLE Grimaldo at 09/08/171648 Author: LUCILLE Grimaldo Service: (none) Author Type: Mainframe Analyst Filed: 09/08/17 1651 Date of Service: 09/08/171648 Status: Signed C D Stripper: LUCILLE Grimaldo (Mainframe Analyst) Discharge planning: Pending PT/OT recommendation. left message for Lazaro Meadows with [facility] . Lazaro would like to be updated on discharge plan when known. onver patric Transaction, Provider Unknown - 09/08/2017 1:44 PM PDT Pharmacy Note by Alex South RPH at 09/08/17 1344 Author: Alex South RPH Service: Pharmacy Author Type: Pharmacist Filed: 09/08/17 1344 Date of Service: 09/08/17 1344 Status: Signed C D Stripper: Alex South RPH (Pharmacist) Vancomycin day 2, [...] Service: Hospitalist Author Type: Physician Filed: 09/08/17 1540 Date of Service: 09/08/17 1238 Status: Signed C D Stripper: Cesar Gatica MD (Physician) Related Notes: Original Note by Cesar Gatica MD (Physician) filed at 09/08/17 1240 [facility] Service: Hospitalist Progress Note Hospital [...] in all extremities DATA Recent Labs Lab 09/08/1745109/06/172145 WBC 10.54 15.75* HGB 10.5* 12.0 HCT 31.1* 34.3 PLT 237 311 NEUTOPHILPCT 77.18 82.42 MONOPCT 7.68 5.56 Recent Labs Lab 09/08/1745109/06/172145 NA 136 135 K 3.0* 3.4* CL 96* 96* CO2 29 26 BUN 35* 40* CREATININE 14* 14* PROT 6.5 7.5 BILITOT 0.4 0.4 ALT 12 16 AST 11 11 Phosphorus: Lab Results Component Value Date PHOS 3.7 09/08/2017 Invalid input(s): LABALBU Recent Labs Lab 09/08/17 0452 MG 2.0 No results for input(s): AMYLASE in the last 168 hours. No results for input(s): PHART, PO2ART, JYH4JDO, N6UYCNJP, BEART in the last 168 hours. No [...] O ct 2016 3:38AM Referring Provider Line: [id number] ID: [id number] Ct Abdomen Pelvis With Iv [...] Sep 07 2017 1:06AM Referring Provider Line: [phone] ID: [id number] Ultrasound Abdomen, Gallbladder Result Date: 09/06/2017 Mildly distended gallbladder without evidence of cholelithiasis or acute cholecystitis. No bile duct obstruction. RADIA Electronically signed by Stepan Wiggins on Sep 06 2017 11: 45PM Referring Provider Line: [phone] ID: [id number] PROBLEM LIST Principal Problem: Epigastric [...] Right ovarian hemorrhagic cyst. Outpatient followup with [facility]. 5. Leukocytosis, improved after antibiotics. 6. Hypokalemia. Defer to nephrology for further management. 7. DVT prophylaxis. Heparin. Code Status: Full Code Cesar Gatica MD 09/08/2017 12:38 PM Viri Moreno MD - 09/08/2017 8:46 AM PDT Progress Notes by Amrik Reyna MD at 09/08/17 0876 Author: Amrik Reyna MD Service: Nephrology Author Type: Physician Filed: 09/08/17 1211 Date of Service: 09/08/17845 Status: Addendum C D Stripper: Amrik Reyna MD (Physician) Related Notes: Original Note by Amrik Reyna MD (Physician) filed at 09/08/17 0857 PCP : [facility] LOS: 1 day Ramona Oconnor is a [...] teague at her monthly meeting with Dr. Rey was advised GI evaluation. Beginning Friday she [...] 10/25/15 showed normal sized kidneys. 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 Primary magazine keeper is Dr. Rey Essential HTN Anemia of chronic renal failure [...] completed later after rounds. Dictation software, was [employer], used which may contain error for similar [...] chloride (PF) 10 mL Intravenous Q8H onversion Transactawa n, Provider Unknown - 09/07/2017 4:07 PM PDT Case Management by Grazyna Nails RN at 09/07/17 1606 Author: Grazyna Nails RN Service: (none) Author Type: Registered Nurse Filed: 09/07/17 161 Date of Service: 09/07/171606 Status: Signed C D Stripper: Grazyna Nails RN (Registered Nurse) 09/07/171601 Discharge Planning Evaluation Admitting Diagnosis intractable abdominal pain Readmission No Living Arrangements Spouse/significant other;Family members (pt resides w/spouse Julian and sister and family) Support Systems Parent;Family members;Spouse/significant other (CM spoke to pt mother Lyubov [phone]) Type of Residence Private residence House type House-1 story Bathrooms on 1st Floor 1-Full Independent with ADL's Yes Independent with Mobility Yes Home Care Services Yes Type of Home Care Services Attendant ([facility]) Mental Status Oriented (pt sleeping during assessment, CM spoke to pt mother ) Anticipated Discharge Plan Post Acute Care Needs Home Health Services ([facility] in place) Home Health Services Nursing;PT Resources Financial concerns No Transportation issues No Patient/Family concerns [place] [facility] Previous home health equipment No Vascular access device No Ostomy/Drains/Appliances Yes (pt has peritoneal dialysis) Anticipated Disposition Facility Type Home CM met with pt mother Lyubov [phone] and discussed discharge planning, Pt is a 37 y.o. , female resides w/spouse Jose C at pt sister and family home. Patient has peritoneal dialysi s nightly. Pt followed by [facility]. Patient is independent with ADL's and ambul ation. 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 No d/c needs reported via pt mother. Patient's PCP is: [facility] Patient's insurance: [employer] Coverage concerns: no Medication coverage/concerns: Rx Bedside Delivery: Community resources utilized / needed: pt has [facility] health Assistance in transportation: pt spouse [...] Physician Filed: 09/07/17 1442 Date of Service: 09/07/176 Status: Addendum C D Stripper: Cesar Gatica MD (Physician) Related Notes: Original [...] Progress Notes by Paulie Read RPH at 09/07/17645 Author: Paulie Read RPH Service: Pharmacy Author Type: Pharmacist Filed: 09/07/17645 Date of Service: 09/07/17645 Status: Signed C D Stripper: Paulie Read RPH (Pharmacist) Renal Dosing Monitoring: Ramona Oconnor 37 y.o. female Pharmacy dosing for renal function per Dr. Pate Plan per protocol: HD patient No medications need to be renally adjusted at this time Pharmacy will continue monitoring patient for appropriate dosing per renal function. 09/07/2017 6:46 AM Pharmacist: PAULIE READ documente d in this encounter Plan of [...] | EXTERNAL LAB: CBC | Routin | 09/06/2017 | | Results [...] LAB | | | | performed at [facility], [address] | | | | | | [address], | | | | | | [place] [address] | | | | | | | [...] | | | | | [place] [address] | | | | + + + [...] W | | | | | | [facility] | | | | | | [place] [address] | | | | + + + [...] [place] | | | | | | [address] | | | | + + + [...] Joseph, | | | | | | [place] [address] | | | | + + + [...] | | | | | [place] [address] | | | | + + + [...] | | range: Negative Testing performed by [employer] [facility], | | | [place] [address] | | + + + + [...] [facility], [address] | [address] | LAB | | | | [address], | | | | | | [place] [address] | | | | + + + [...] | | | | | | [place] [address] | | | | + + + [...] | | | Random | performed at [facility];[address] | | LAB | | | | [address];[place], [place] | | | | | | [address] | | | | + + + [...] Any, | | | | | | [place] [address] | | | | + + + [...] EXTERNAL | | | | performed at [facility] | | LAB | | | | [address];[place] | | | | | | [address] | | | | + + + + + + + + | Specimen | + + | | + + + +---------+ + + | Performing | Address | City/State/Zipcode | Phone Number | | Organization | | | | + +---------+ + + | EXTERNAL LAB | | | | + +---------+ + + External Lab: CBC (09/10/2017 6:06 AM PDT) + + + [...] [facility], [address] | [address] | LAB | | | | [address], | | | | | | [place] [address] | | | | + + + [...] EXTERNAL | | | | performed at [facility] | | LAB | | | | [address];[place], [place] | | | | | | [address] | | | | + + + [...] EXTERNAL | | | | performed at [facility];[address] | | LAB | | | | [address];[place], [place] | | | | | | [address] | | | | + + + [...] | | | Random | performed at [facility] | | LAB | | | | [address];[place], [place] | | | | | | [address] | | | | + + + [...] | | | | | | at [facility];[address] [place] [address] | | | | | | [facility];[place] [address] | | | | + + + [...] | | | Basophils | performed at [facility];[address] | [address] | LAB | | | | [address];[place], [place] | | | | | | [address] | | | | + + + [...] EXTERNAL | | | | performed at [facility];[address] | | LAB | | | | [address] [facility];[place], [place] | | | | | | [address] | | | | + + + [...] | | | Random | performed at [facility];[address] | | LAB | | | | [address];[place], [place] | | | | | | [address] | | | | + + + [...] | | | | | | at [facility];[address] [place] [address] | | | | | | [facility];[place] [address] | | | | + + + [...] [facility], [address] | [address] | LAB | | | | [address], | | | | | | [place] [address] | | | | + + + [...] EXTERNAL | | | | performed at [facility];[address] | | LAB | | | | [address];[place] | | | | | | [address] | | | | + + + [...] EXTERNAL | | | | performed at [facility];[address] | | LAB | | | | [address];[place], [place] | | | | | | [address] | | | | + + + [...] | | | | | | at [facility];[address] [place] [address] | | | | | | Bl;[place] [address] | | | | + + + [...] | APPEARANCE CLEAR RBC'S | | | <146[address] TOTAL NUCLEATED | | | CELLS 127 NEUTROPHILS | | | 56 LYMPHOCYTES | | | 5 MONOCYTES/MACROPHAGES | | | 39 CELLS COUNTED 100 | | | Testing performed at [facility];[address] [facility];[place] [address] | | + + + + +---------+ [...] | | | | | | at [facility];[address] [facility] | | | | | | [facility];[place] [address] | | | | + + + [...] [address]arwal, | | | | | | [place] [address] | | | | + + + [...] - [address], | | | | | | [place] [address] | | | | + + + [...] 3:38AM | | | Referring Provider Line: [phone] ID: [id number] | | + + + [...] 2017 3:38AM Referring Provider | | Line: [phone] ID: [id number] | |Cervix: No suspicious lesion. [...] Sep 07 2017 3:38AM Referring Provider Line: [phone] ID: [id number] | + + Lactic Acid (09/07/2017 1:05 AM PDT) + + + + + + | Component | Value | Ref Range | Performed | Pathologist | | | | | At | Signature | + + + + + + | Lactate | 1.0Comment: Testing | 0.4 - 2.0 | EXTERNAL | | | | performed at [facility];[address] | mmol/L | LAB | | | | [address];[place] | | | | | | [address] | | | | + + + [...] by Star Boyd MD on Aug | 2016 1:06AM Referring Provider Line: [phone] ID: [id number] | | + + + [...] | | 2016 1:06AM Referring Provider Line: [phone] ID: [id number] | |Kidneys: No solid appearing [...] a t January 2018. | | | |BELLAA | | | | Electronically signed by Star Boyd MD on Sep 07 2017 1:06AM Referring Provider Line: [phone] ID: [id number] | + + US Abdomen [...] 11:45PM | | | Referring Provider Line: [phone] ID: [id number] | | + + + [...] 06/24/2019 3:39 AM PDT EXAM:ABDOMEN ULTRASOUND LIMITED, RUThais | | EXAM DATE: 09/06/2017 11:20 PM. [...] RADIA | | Electronically signed by Stepan Wiggins, on Sep 06 2017 11:45PM Referring Provider | | Line: [phone] ID: [id number] | | | |FINDINGS: | [...] 06 2017 11:45PM Referring Provider Line : [phone] ID: [id number] | + + Lactic Acid (09/06/2017 9:46 PM PDT) + + + + + + | Component | Value | Ref Range | Performed | Pathologist | | | | | At | Signature | + + + + + + | Lactate | 1.6Comment: Testing | 0.4 - 2.0 | EXTERNAL | | | | performed at [facility];[address] | mmol/L | LAB | | | | [address];[place], [place] | | | | | | [address] | | | | + + + + + + + + | Specimen | + + | | + + + +---------+ + + | Performing | Address | City/State/Zipcode | Phone Number | | Organization | | | | + +---------+ + + | EXTERNAL LAB | | | | + +---------+ + + External Lab: BLAINE (09/06/2017 9:46 PM PDT) + + + [...] | | | Basophils | performed at [facility];[address] | [address] | LAB | | | | [address];[place] | | | | | | [address] | | | | + + + [...] EXTERNAL | | | | performed at [facility];[address] | | LAB | | | | [address];[place], [place] | | | | | | [address] | | | | + + + [...] | | | | | | at [facility];[address] [place] [address] | | | | | | [facility];[place] [address] | | | | + + + [...]
--- OUTSIDE RECORDS SUMMARY | ~2020-04-05 | XMS | Encounter Summary ---
Demographics + + + | Address | [address] | | | [place] [address] | + + + | Home Phone [...] [place], [place] | | | | | [address] | | + + + + + | Lydia Palm | ECON | [place], [place] | | | | | [address] | | + + + + + | melinda METZ" | ECON | [place], [place] | | | [place] | | [address] | | + + + + + | Jose C Oconnor | ECON | [place] | | | | | [place] | | | | | [address] | | + + + + + Care Team Providers + +------+ + | Care Umbrella Repairer Name | Role | Phone | + [...] daily thru | [address] | [place] [address] | | | | | February 23, | [place], [place] | Phone: | | | | | Peritonitis | [address] | [phone] | | | | | Procedures | Phone: | Fax: | | | | | [place] | [phone] | [phone] | | | | | [place], | Fax: | | | | | | [address] [place] | [phone] | | | | | | IV [...] + + | 02/23/ | Hospital | [facility] | Unknown, | Peritonitis | | 2019 | Encounter | MED CTR OP INFUSION | MD Iris Kinney | associated with | | | | [address] | [phone] | peritoneal dialysis, | | | | [place] | | initial encounter | | | | [address] | | (HCC) (Primary Dx) | | | | [phone] | | | +--------+ + + + [...]
--- OUTSIDE RECORDS SUMMARY | ~2020-04-05 | XMS | Encounter Summary ---
Demographics + + + | Address | [address] | | | [place] [address] | + + + | Home Phone [...] [place], [place] | | | | | [address] | | + + + + + | Lydia Palm | ECON | [place], [place] | | | | | [address] | | + + + + + | melinda METZ" | ECON | [place], [place] | | | [place] | | [address] | | + + + + + | Jose C Oconnor | ECON | [place] | | | | | [place] | | | | | [address] | | + + + + + Care Team Providers + +------+ + | Care Communications Maintainer Name | Role | Phone | + [...] renal | | 2019 | | MEDICAL BIEBER | PA-C [address] | disease on dialysis | | | | EMERGENCY CENTER | [place] [address] | (HCC) (Primary Dx); | | | | [address] | [phone] | Hyperkalemia; | | | | [place], [place] | | Generalized | | | | [address] | Sher Alex, | abdominal pain; | | | | [phone] | DO [address] | Ovarian mass | | | | | [place] [address] | | | | | | [phone] | | | | | | | [...] be sent through Care Everywhere.Abdominal Pain, Adult (Sami)documented in this encounter Medications at Time of [...] | | | | | ONLY, -COMPUTER (811), | | | | | | metal fabricating shop helper Rashel Polanco | | | | | [...] Testing | 12 - 53 U/L | DAWNA | | | | performed at [facility];[address] | | LABORATORY | | | | [address];[place] | | | | | | [address] | | | | + + + + + + + + | Specimen | + + | Blood | + + + + + + + | Performing | Address | City/State/Zipcode | Phone Number | | Organization | | | | + + + + + | [facility] | [address] | [place] [address] | [phone] | + + + + + Comprehensive [...] [place];[address] | | | | | | [facility];[place], [place] | | | | | | [address] | | | | + + + + + + + + | Specimen | + + | Blood | + + + + + + + | Performing | Address | City/State/Zipcode | Phone Number | | Organization | | | | + + + + + | [facility] | [address] | [place] [address] | [phone] | + + + + + CBC [...] [place] | | | | | | [address] | | | | + + + + + + + + | Specimen | + + | Blood | + + + + + + + | Performing | Address | City/State/Zipcode | Phone Number | | Organization | | | | + + + + + | [facility] | [address] | [place] [address] | [phone] | + + + + + documented [...] | Pain, Starting 08/10/19 at | | PM PDT | | [...] HOUR PRN, Nausea, Starting Tue | | PM PDT | | | | | 08/10/19 at 1326, For 2 doses | | | | | | + +-------+ +------+---+---+ +---+---+ | | | +---+---+ documented in this encounter
--- OUTSIDE RECORDS SUMMARY | ~2020-04-05 | XMS | Encounter Summary ---
Demographics + + + | Address | [address] | | | [place] [address] | + + + | Home Phone [...] [place], [place] | | | | | [address] | | + + + + + | Lydia Palm | ECON | [place], [place] | | | | | [address] | | + + + + + | melinda METZ" | ECON | [place], [place] | | | [place] | | [address] | | + + + + + | Jose C Oconnor | ECON | [place] | | | | | [place] | | | | | [address] | | + + + + + Care Team Providers + +------+ + | Care Heel Shaper Name | Role | Phone | + +------+ + | Juan F Whitley DO | PCP | | + +------+ + Encounter Details +--------+ + + + + | Date | Type | Department | Care Team | Description | +--------+ + + + + | 05/04/ | Hospital | [facility] | Conversion | | | 2019 | Encounter | [facility] | Transaction, | | | | | CLINIC [address] | Provider Unknown | | | | | [place], [place] | [phone] | | | | | [address] | | | | | | [phone] | | | +--------+ + + + [...] NEGATIVE Testing | | | performed at [facility];[address] [facility];[place] [address] | | + + + + +---------+ [...] | | | | | performed at [facility], [address] | | | | | | [facility], | | | | | | [place] [address] | | | | + + + [...]
--- OUTSIDE RECORDS SUMMARY | ~2020-04-05 | XMS | Encounter Summary ---
Demographics + + + | Address | [address] | | | [place] [address] | + + + | Home Phone [...] Author | [facility] | | | and [place] | + + + | Organization | [facility] | | | and [place] | + + + | Address | Unknown | + + + | Phone | Unavailable | + + + Support + + + + + | Name | Relationship | Address | Phone | + + + + + | Lyubov Smalls | ECON | [place], [place] | | | | | [address] | | + + + + + | Lydia Palm | ECON | [place], [place] | | | | | [address] | | + + + + + | melinda METZ" | ECON | [place], [place] | | | [place] | | [address] | | + + + + + | Jose C Oconnor | ECON | [place] | | | | | [place] | | | | | [address] | | + + + + + Care Team Providers + +------+ + | Care Blooming Mill Supervisor Name | Role | Phone | + +------+ + | Juan F Whitley DO | PCP | | + +------+ + Encounter Details +--------+ + + + + | Date | Type | Department | Care Team | Description | +--------+ + + + + | 03/16/ | Hospital | [facility] | Salvador Ruiz, | Abdominal pain, | | 2018 - | Encounter | [facility] | [address] | unspecified | | | | CARE FLOOR [address] | [place] [address] | abdominal location; | | 03/19/ | | [address] | [phone] | Hypotension, | | 2018 | | [place], [place] | | unspecified | | | | [address] | | hypotension type; | | | | [phone] | | Chronic kidney | | | [...] Date of Service: 03/19/18 1522 Status: Signed Director Call Center Sales: Arias Singh MD (Physician) Related Notes: Original Note by Arias Singh MD (Physician) filed at 03/19/18 1541 [facility] Service: Hospitalist Discharge Summary Date of Admission: [...] hydrocodone/acetaminophen. She was instructed to contact her tooling engineering tech or return back to the emergency department [...] Procedure: ESOPHAGOGASTRODUODENOSCOPY; Surgeon: Beena Peters MD; Location: [facility] END[facility]; Service: Gastroenterology; Laterality: N/A; PERITONEAL CATHETER INSERTION N/A 10/28/2015 Procedure: LAPAROSCOPIC - PERITONEAL DIALYSIS CATH INSERTION; Surgeon: Mundo Ramos MD; Lo cation: [facility] MAIN OR; Service: Vascular; Laterality: N/A; [...] t Taking at Unknown time ergocalciferol (DRISDOL) 96391 UNITS capsule Take 50,000 Units by mouth [...] Value Units Date/Time FLUID CULT W/GRAM STAIN [[id number]] Collected: 03/17/18919 Specimen: Peritoneal Fluid Updated: 03/19/18 1156 Specimen Description PERITONEAL FLUID GRAM STAIN NO CELLS OR ORGANISMS SEEN CULTURE NO GROWTH 2 DAYS Blood Culture Set 2 [[id number]] Collected: 03/16/181925 Specimen: Blood from Blood, peripheral draw Updated: 03/18/18725 Specimen Description BLOOD, PERIPHERAL DRAW SPECIAL REQUESTS LH CULTURE NO GROWTH 2 DAYS Blood Culture Set 1 [[id number]] Collected: 03/16/181914 Specimen: Blood from Blood, peripheral draw Updated: 03/18/18725 Specimen Description BLOOD, PERIPHERAL DRAW SPECIAL REQUESTS RAC CULTURE NO GROWTH 2 DAYS Body Fluid Cell Count [[id number]] Collected: 03/17/18919 Updated: 03/17/181948 FLUID TYPE PERITONEAL [...] Number of Visits Requested: 1 Follow up: [facility] [address] [place] [address] In 1 week Rosamaria Baron MD [address] [facility] [address] [facility] [address] Schedule an appointment as soon as possible [...] Refills: 0 Commonly known as: NORVASC ergocalciferol 06996 units capsule Refills: 0 Commonly known as: [...] Nephrology Author Type: Registered Nurse Filed: 03/19/18 8393 Date of Service: 03/19/181550 Status: Signed Director Call Center Sales: Vandana Kemp RN (Registered Nurse) Pt is [...] Date of Service: 03/19/18 152 Status: Signed Director Call Center Sales: Saeid Mack RN (Registered Nurse) 03/19/18 1500 [...] Date of Service: 03/19/18 110 Status: Signed Director Call Center Sales: Lois Richmond MD (Physician) [facility] Service: Infectious Disease Progress Note Hospital Day: [...] gastritis, possible gastroparesis She was admitted to [facility] from 03/04- with presentation of sudden [...] showed the patient was tachycardic. Dr Iris Meija, on-call for nephrology had been consulted. ER [...] medina to the hospitalist service. Dr. Rutledge, can stacker, was consulted overnight because of the transient [...] 03/19/18630 Date of Service: 03/19/18628 Status: Signed Director Call Center Sales: Salome Garcia RN (Registered Nurse) No acute changes. Underwent peritoneal dialysis overnight. VSS; required only one dose of PRN Garrison for pain. No episodes of nausea or emesis. No further concerns identified. Alexis l continue to monitor. 03/19/18 6:31 AM Salome Garcia RN Arias Arguelles MD - 03/18/2018 4:37 PM PDT Progress Notes by Arias Singh MD at 03/18/18 4897 Author: Arias Singh MD Service: Hospitalist Author Type: Physician Filed: 03/18/18 1701 Date of Service: 03/18/18 163 Status: Signed Director Call Center Sales: Arias Singh MD (Physician) [facility] Service: Hospitalist Progress Note Hospital Day: LOS: [...] Date of Service: 03/18/18 0856 Status: Signed Director Call Center Sales: Lois Richmond MD (Physician) [facility] Service: Infectious Disease Progress Note Hospital Day: [...] gastritis, possible gastroparesis She was admitted to [facility] from 03/04- with presentation of sudden [...] admit medina to the hospitalist service. Dr. Rutldege, can stacker, was consulted overnight because of the transient [...] Management by Saeid Mack RN at 03/17/18 6334 Author: Saeid Mack RN Service: (none) Author Type: Registered Nurse Filed: 03/17/18 1507 Date of Service: 03/17/18 3707 Status: Signed Director Call Center Sales: Saeid Mack RN (Registered Nurse) 03/17/18 7268 Discharge Planning Evaluation Admitting Diagnosis abdominal pain Readmission No Living Arrangements Spouse/significant other Type of Residence Private residence Independent with ADL's Yes Independent with Mobility Yes Mental Status Oriented Anticipated Discharge Plan Post Acute Care Needs None at this time Plan communicated to patient/family Yes Resources Financial concerns No Transportation issues No Patient/Family concerns No Prescription Plan Yes Name of Pharmacy [facility] Previous home health equipment No Vascular access device Yes (PD catheter) Anticipated Disposition Facility Type Home Met with Ramona and discussed discharge planning, Pt is a 38 y.o., female who is independent and lives with her in [place]. She doesn't use DME but does peritoneal dialysis a t home. Patient's PCP is:[facility] Patient's insurance:[employer]/Medicare Coverage concerns: none Medication coverage/concerns: yes/no Community resources utilized / needed:Does peritoneal dialysis at home and goes to [facility] in [place] for PD support. Assistance in transportation: family Identification of any specific education / training: none Barriers to Discharge / Alternative housing needed: none Anticipated DCP: home Saeid Mack Arias Arguelles MD - 03/17/2018 8:58 AM PDT Progress Notes by Arias Singh MD at 03/17/18857 Author: Arias Singh MD Service: Hospitalist Author Type: Physician Filed: 03/17/1827 Date of Service: 03/17/18857 Status: Signed Director Call Center Sales: Arias Singh MD (Physician) [facility] Service: Hospitalist Progress Note Hospital Day: LOS: [...] acute diverticulitis. Neil vincent signed by Ray Brisneo on 03/16/2018 10:33 PM PROBLEM LIST Principal [...] 03/17/18347 Date of Service: 03/17/18347 Status: Signed Director Call Center Sales: Drew Renae RPH (Pharmacist) Notw ccl 6.1ml/min meds reviewed [facility] pharmacy will follow [facility] 0348 docume nted in this encounter Plan [...] | | | | | [place] [address] | | | | + + + [...] Health, | | | | | | [place] [address] | | | | + + + [...] | | | | | [place] [address] | | | | + + + [...] [facility];[address] | | LAB | | | | [address];[place], [place] | | | | | | [address] | | | | + + + [...] 100 | | | Testing performed at [facility];[address] [place] [address];[place] [address] | | + + + + +---------+ [...] | | | | | | [facility];[address] [place] [address] | | | | | | [facility];[place] [address] | | | | + + + [...] [place] | | | | | | [address] | | | | + + + [...] | | | | | [place] [address] | | | | + + + [...] [address], | | | | | | [place] [address] | | | | + + + [...] | | | | | [place] [address] | | | | + + + [...] | at [facility], [address] | | | | | | [address], | | | | | | [place] [address] | | | | + + [...] at [facility];[address] | mmol/L | LAB | | | | [address];[place], [place] | | | | | | [address] | | | | + + + [...] | | | PM | performed at [facility], [address] | ug/dL | LAB | | | | [address], | | | | | | [place] [address] | | | | + + + [...] (500), | | | | | | assignment editor Rashel Polanco | | | | [...] at [facility];[address] | mmol/L | LAB | | | | [address];[place], [place] | | | | | | [address] | | | | + + + [...] | | | | | at [facility];[address] [place] [address] | | | | | | [facility];[place] [address] | | | | + + + [...] [place];[address] | | | | | | [address];[place] | | | | | | [address] | | | | + + + [...] | | | QUALITATIVE | performed at [facility];[address] | | LAB | | | | [address];[place], [place] | | | | | | [address] | | | | + + + [...] | performed at [facility];[address] | | LAB | | | | [address];[place] | | | | | | [address] | | | | + + + [...] | performed at [facility] | | LAB | | | | [address] [facility];[place], [place] | | | | | | [address] | | | | + + + [...] [facility];[address] | | LAB | | | | [address];[place] | | | | | | [address] | | | | + + + [...] | | | | | at [facility];[address] [place] [address] | | | | | | [facility];[place] [address] | | | | + + + [...]
--- OUTSIDE RECORDS SUMMARY | ~2020-04-05 | XMS | Encounter Summary ---
Demographics + + + | Address | [address] | | | [place] [address] | + + + | Home Phone | | + + + | Preferred Language | Unknown | + + + | Marital Status | | + + + | Religion Affiliation | Unknown | + + + [...] [place], [place] | | | | | [address] | | + + + + + | Lydia Palm | ECON | [place], [place] | | | | | [address] | | + + + + + | melinda METZ" | ECON | [place], [place] | | | reba | | [address] | | + + + + + | Jose C Oconnor | ECON | [address] | | | | | [place] | | | | | [address] | | + + + + + Care Team Providers + +------+ + | Care Pipe Organ Installer Name | Role | Phone | + [...] [facility] | | | | | | ([facility]) | [address] | | | | | | Procedures | [place] | | | | | | VAS Lower | [address] | | | | | | Extremity | Phone: | | | | | | Vein Mapping | [phone] | | | | | | Bilat VAS | Fax: | | | | | | Lower | [phone] | | | | | | Extremity | | | | | | | Vein Mapping | | | | | | | Right | | | +--------+--------+ + + + + Encounter Details +--------+ + + + + | Date | Type | Department | Care Team | Description | +--------+ + + + + | 12/23/ | Hospital | [facility] | | ESRD on dialysis | | 2020 | Encounter | VASCULAR SURGERY | | ([facility]) | | | | ULTRASOUND [address] | | | | | | [address] | | | | | | [place] | | | | | | [address] | | | | | | [phone] | | | +--------+ + + + [...]
--- OUTSIDE RECORDS SUMMARY | ~2020-04-05 | XMS | Encounter Summary ---
Demographics + + + | Address | [address] | | | [place] [address] | + + + | Home Phone [...] [place], [place] | | | | | [address] | | + + + + + | Lydia Palm | ECON | [place], [place] | | | | | [address] | | + + + + + | melinda METZ" | ECON | [place], [place] | | | [place]ba | | [address] | | + + + + + | Jose C Oconnor | ECON | [address] | | | | | [place] | | | | | [address] | | + + + + + Care Team Providers + +------+ + | Care Fish Hatchery Superintendent Name | Role | Phone | + [...] + + | 12/14/ | Telephone | [facility] | Qasim Pederson MD | Procedure | | 2020 | | VASCULAR SURGERY | [address] | (infomration) | | | | [address] | [address] | | | | | [place], [place] | [address] | | | | | [address] | | | | | | [phone] | | | +--------+ + + + [...]
--- OUTSIDE RECORDS SUMMARY | ~2020-04-05 | XMS | Encounter Summary ---
Demographics + + + | Address | [address] | | | [place] [address] | + + + | Home Phone [...] [place], [place] | | | | | [address] | | + + + + + | Lydia Palm | ECON | [place], [place] | | | | | [address] | | + + + + + | melinda METZ" | ECON | [place], [place] | | | [place] | | [address] | | + + + + + | Jose C Oconnor | ECON | [address] | | | | | [place] | | | | | [address] | | + + + + + Care Team Providers + +------+ + | Care Service Girl Name | Role | Phone | + [...] | | | | | disease) | [place] | | | | | | ([facility]) | [address] | | | | | | Procedures | Phone: | | | | | | VAS Ankle | [phone] | | | | | | Brachial | Fax: | | | | | | Index | [phone] | | | | | | Resting | | | +--------+--------+ + + + + Encounter Details +--------+ + + + + | Date | Type | Department | Care Team | Description | +--------+ + + + + | 12/23/ | Hospital | [facility] | | PAD (peripheral | | 2020 | Encounter | VASCULAR SURGERY | | artery disease) | | | | ULTRASOUND [address] | | (HCC) | | | | [address] | | | | | | [place] | | | | | | [address] | | | | | | [phone] | | | +--------+ + + + [...] the | | | | PST | ([facility]) | results section. | + +--------+ + [...]
--- OUTSIDE RECORDS SUMMARY | ~2020-04-05 | XMS | Encounter Summary ---
Demographics + + + | Address | [address] | | | [place] [address] | + + + | Home Phone [...] [place], [place] | | | | | [address] | | + + + + + | Lydia Palm | ECON | [place], [place] | | | | | [address] | | + + + + + | melinda METZ" | ECON | [place], [place] | | | reba | | [address] | | + + + + + | Jose C Oconnor | ECON | [place] | | | | | [place] | | | | | [address] | | + + + + + Care Team Providers + +------+ + | Care Revolving Field Assembler Name | Role | Phone | + +------+ + | Juan F Whitley DO | PCP | | + +------+ + Encounter Details +--------+ + + + + | Date | Type | Department | Care Team | Description | +--------+ + + + + | 09/06/ | Hospital | [facility] | Alexx Pate | Intractable | | 2017 - | Encounter | [facility] [address] | [address] | abdominal pain; | | | | [address] | [address] | Intractable vomiting | | 09/13/ | | [facility] [place] | [place] [address] | with nausea, | | 2017 | | [address] | [phone] | unspecified vomiting | | | | [phone] | | type; Hemorrhagic | | | [...] Service: Hospitalist Author Type: Physician Filed: 09/13/17 5982 Date of Service: 09/13/17 1320 Status: Signed Paleologist: Ray Cruz DO (Physician) [facility] Service: Hospitalist Discharge Summary Date of [...] Surgeon: Beena Peters MD; Location: [facility]; Service: Gastroenterology; Laterality: N/A; PERITONEAL CATHETER INSERTION N/A 10/28/2015 Procedure: LAPAROSCOPIC - PERITONEAL DIALYSIS CATH INSERTION; Surgeon: Mundo Ramos MD; Lo cation: [facility] MA[facility] OR; Service: Vascular; Laterality: N/A; No Known Allergies Prescriptions Prior to Admission Medication Sig Dispense Refill Last Dose ALPRAZolam (XANAX) 0.5 MG tablet Take 0.5 mg by mouth nightly as needed for Sleep. @0930 at 1000 amLODIPine (NORVASC) 2.5 MG tablet Take 2.5 mg by mouth daily. 06/03/2017@1400 ergocalciferol (DRISDOL) 01966 UNITS capsule Take 50,000 Units by mouth [...] discharge procedures on file. Follow up: [facility] [address] [place] [address] Chago Rey MD [address] [facility] [id number] Beena Peters MD [address] [facility] [place] [address] Medication List START taking these medications [...] Refills: 0 Commonly known as: NORVASC ergocalciferol 71091 units capsule Refills: 0 Commonly known as: [...] as of this encounter Progress Notes Chago Rey MD - 09/13/2017 10:44 AM PDT Progress Notes by Chago Rey MD at 09/13/17 1044 Author: Chago Rey MD Service: Nephrology Author Type: Physician Filed: 09/22/17 6742 Date of Service: 09/13/171043 Status: Signed Paleologist: Chago Rey MD (Physician) [facility] Service: Nephrology Progress Note Hospital Problem [...] 09/13/2017 I/O last 3 completed shifts: In: 81081 [P.O.:750; Other:25656] Out: 90829 [Other:17393] I/O this shift: In: 58624 [P.O.:640; Other:98776] Out: 50014 [Other:06720] Assessment: Ms. Oconnor is a 37 y.o. [...] and discussions with the primary/consulting team. CHAGO REY MD 09/13/2017 ose C Kaye DO - 09/13/2017 10:24 AM PDT Progress Notes by Jose C Kaye DO at 09/13/17 1024 Author: Jose C Kaye DO Service: (none) Author Type: Physician Filed: 09/13/17 1114 Date of Service: 09/13/17 1024 Status: Signed Paleologist: Jose C Kaye DO (Physician) [facility] Service: Infectious Disease Progress Note Hospital [...] 7:14 PM PDT Progress Notes by Brandin Cotrez MD at 09/12/17 1913 Author: Brandin Cortez MD Service: Hospitalist Author Type: Physician Filed: 09/12/171916 Date of Service: 09/12/171913 Status: Signed Paleologist: Brandin Cortez MD (Physician) [facility] Service: Hospitalist Progress Note Hospital Day: [...] so was switched to lactulose. Subsequently: Dr Peters has evaluated endoscopically. Antibiotics to be stopped [...] hours. No results for input(s): PHART, PO2ART, UMF5BWO, U2UAQFLO, BEART in the last 168 hours. No [...] O ct 2016 3:38AM Referring Provider Line: [phone] ID: [id number] Ct Abdomen Pelvis With Iv [...] Sep 07 2017 1:06AM Referring Provider Line: [phone] ID: [id number] Ultrasound Abdomen, Gallbladder Result Date: 09/06/2017 Mildly distended gallbladder without evidence of cholelithiasis or acute cholecystitis. No bile duct obstruction. RADIA Electronically signed by Stepan Wiggins on Sep 06 2017 11: 45PM Referring Provider Line: [phone] ID: [id number] PROBLEM LIST Principal Problem: Epigastric [...] Right ovarian hemorrhagic cyst: Outpatient followup with [facility]. 5. Leukocytosis: improved Recent Labs Lab 09/12/17 [...] Notes by Janet Gutierrez RD at 09/12/17 1508 Author: Janet Gutierrez RD Service: (none) Author Type: Registered Dietitian Filed: 09/12/17 9409 Date of Service: 09/12/17 1505 Status: Signed Paleologist: Janet Gutierrez RD (Registered Dietitian) 09/12/17 2276 Subjective Timepoint Follow up (M risk) Pt c/o RN reports pt has been unable to tolerate po. Pt in bathroom at time of visit. Vickiein g visit pt started puking up breakfast. Reported by Family Fluid / Beverage Intake Oral Fluids Amount Fluids ad kimberly. Liquid Meal Replacement or Supplement reports pt has done LiquaCel TAPPER HAND. Food Intake Amount of Food Pt's mom reports pt had Turkish toast for breakfast that stayed down until [...] Notes by Amrik Reyna MD at 09/12/17 1535 Author: Amrik Reyna MD Service: Nephrology Author Type: Physician Filed: 09/12/17 1500 Date of Service: 09/12/17 4264 Status: Signed Paleologist: Amrik Reyna MD (Physician) PCP : [facility] LOS: 5 days Ramona Oconnor is a [...] 10/25/15 showed normal sized kidneys. 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 Primary clinical product specialist is Dr. Rey Essential HTN Anemia of [...] completed later after rounds. Dictation software, was Major Aide, used which may contain error for similar [...] chloride (PF) 10 [address] Intra[address] Q8H Dr. eRy will assume nephrology service as of 8 pm tonight. Jose C Bar DO - 1 11/12/2016 10:55 AM PDT Progress Notes by Jose C Kaye DO at 09/12/17 105 Author: Jose C Kaye DO Service: (none) Author Type: Physician Filed: 09/12/17 1133 Date of Service: 09/12/17 1051 Status: Signed Paleologist: Jose C Kaye DO (Physician) [facility] Service: Infectious Disease Progress Note Hospital [...] Notes by Amrik Reyna MD at 09/11/17 7095 Author: Amrik Reyna MD Service: Nephrology Author Type: Physician Filed: 09/11/17 7087 Date of Service: 09/11/17 7484 Status: Signed Paleologist: Amrik Reyna MD (Physician) PCP : [facility] LOS: 4 days Ramona Oconnor is a [...] 10/25/15 showed normal sized kidneys. 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 Primary clinical product specialist is Dr. Rey Essential HTN Anemia of [...] completed later after rounds. Dictation software, was Major Aide, used which may contain error for similar [...] Case Management by LUCILLE Grimaldo at 09/11/17 3713 Author: LUCILLE Grimaldo Service: (none) Author Type: Supervisor Shed Workers Filed: 09/11/17 1310 Date of Service: 09/11/17 2046 Status: Signed Paleologist: LUCILLE Grimaldo (Supervisor Shed Workers) Discharge planning: Pt will return home when medically ready. KARTHIK left message for Lazaro tellez with [facility] . Pt is not expected to dischar ge for a few days. Jose C Bar DO - 09/11/2017 10:37 AM PDTFormatting of this note might be different from the ave ginal. Progress Notes by Jose C Kaye DO at 09/11/17 1037 Author: Jose C Kaye DO Service: (none) Author Type: Physician Filed: 09/11/17 1145 Date of Service: 09/11/17 1037 Status: Signed Paleologist: Jose C Kaye DO (Physician) [facility]: Infectious Disease Progress Note Hospital [...] 09/11/172101 Date of Service: 09/11/17833 Status: Signed Paleologist: Brandin Cortez MD (Physician) [facility]: Hospitalist Progress Note Hospital Day: [...] hours. No results for input(s): PHART, PO2ART, NWP9EYO, Z4FCAXEU, BEART in the last 168 hours. No [...] O ct 2016 3:38AM Referring Provider Line: [phone] ID: 109 Ct Abdomen Pelvis With Iv [...] Sep 07 2017 1:06AM Referring Provider Line: [phone] ID: [id number] Ultrasound Abdomen, Gallbladder Result Date: 09/06/2017 Mildly distended gallbladder without evidence of cholelithiasis or acute cholecystitis. No bile duct obstruction. RADIA Electronically signed by Stepan Wiggins on Sep 06 2017 11: 45PM Referring Provider Line: [phone] ID: [id number] PROBLEM LIST Principal Problem: Epigastric [...] Right ovarian hemorrhagic cyst: Outpatient followup with [facility]. 5. Leukocytosis: improved Recent Labs Lab 09/11/17 [...] 09/11/17822 Date of Service: 09/11/17822 Status: Signed Paleologist: Adenike Howard RPH (Pharmacist) Vancomycin Monitoring Day [...] Notes by Cesar Gatica MD at 09/10/17 1734 Author: Cesar Gatica MD Service: Hospitalist Author Type: Physician Filed: 09/10/17 4558 Date of Service: 09/10/17 9343 Status: Signed Paleologist: Cesar Gatica MD (Physician) [facility]: Hospitalist Progress Note Hospital Day: [...] hours. No results for input(s): PHART, PO2ART, KTU9ZMM, V5UAPQKH, BEART in the last 168 hours. No [...] O ct 2016 3:38AM Referring Provider Line: [phone] ID: 109 Ct Abdomen Pelvis With Iv [...] Sep 07 2017 1:06AM Referring Provider Line: [phone] ID: [id number] Ultrasound Abdomen, Gallbladder Result Date: 09/06/2017 Mildly distended gallbladder without evidence of cholelithiasis or acute cholecystitis. No bile duct obstruction. RADIA Electronically signed by Stepan Wiggins on Sep 06 2017 11: 45PM Referring Provider Line: [phone] ID: [id number] PROBLEM LIST Principal Problem: Epigastric [...] Right ovarian hemorrhagic cyst. Outpatient followup with [facility]. 5. Leukocytosis, improved after antibiotics. 6. Hypokalemia. Defer to nephrology for further management. 7. DVT prophylaxis. Heparin. Code Status: Full Code Cesar Gatica MD 09/10/2017 1:49 PM Viri Moreno MD - 09/10/2017 10:28 AM PDT Progress Notes by Amrik Reyna MD at 09/10/17 1028 Author: Amrik Reyna MD Service: Nephrology Author Type: Physician Filed: 09/10/17 1034 Date of Service: 09/10/17 1028 Status: Signed Paleologist: Amrik Reyna MD (Physician) PCP : [facility] LOS: 3 days Ramona Oconnor is a [...] 10/25/15 showed normal sized kidneys. 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 Primary clinical product specialist is Dr. Rey Essential HTN Anemia of [...] pro calcitonin and leucocytosis without any alter cahto diagnosis. Clinically she improved with improved nausea/abdominal [...] completed later after rounds. Dictation software, was Major Aide, used which may contain error for similar [...] 09/10/1746 Date of Service: 09/10/17912 Status: Signed Paleologist: Jose C Kaye DO (Physician) [facility]: Infectious Disease Progress Note Hospital [...] 09/10/17832 Date of Service: 09/10/17832 Status: Signed Paleologist: Adenike Howard RPH (Pharmacist) Vancomycin Monitoring Day [...] Notes by Cesar Gatica MD at 09/09/17 4460 Author: Cesar Gatica MD Service: Hospitalist Author Type: Physician Filed: 09/09/17 0577 Date of Service: 09/09/17 4970 Status: Addendum Paleologist: Cesar Gatica MD (Physician) Related Notes: Original Note by Cesar Gatica MD (Physician) filed at 09/09/17 4732 [facility]: Hospitalist Progress Note Hospital Day: [...] hours. No results for input(s): PHART, PO2ART, GBL0PGL, W8DDMGPS, BEART in the last 168 hours. No [...] O ct 2016 3:38AM Referring Provider Line: [phone] ID: [id number] Ct Abdomen Pelvis With Iv Contrast Result Date: 09/07/2017 1. Heterogeneous somewhat complex appearing right adnexal abnormality measuring 4.9 x 4.5 c m (image 70 series 3), probably a hemorrhagic ovarian cyst. Further assessment recommended w [facility] pelvic ultrasound. 2. Again seen is a 1.3 cm left adrenal nodule, difficult to accuratel y characterize. No significant change from the prior 01/22/2017 study. Follow-up adrenal pro tocol CT recommended at January 2018. RADIA Electronically signed by Star Boyd MD on Sep 07 2017 1:06AM Referring Provider Line: [phone] ID: [id number] Ultrasound Abdomen, Gallbladder Result Date: 09/06/2017 Mildly distended gallbladder without evidence of cholelithiasis or acute cholecystitis. No bile duct obstruction. RADIA Electronically signed by Stepan Wiggins on Sep 06 2017 11: 45PM Referring Provider Line: [phone] ID: [id number] PROBLEM LIST Principal Problem: Epigastric [...] Right ovarian hemorrhagic cyst. Outpatient followup with [facility]. 5. Leukocytosis, improved after antibiotics. 6. Hypokalemia. [...] 1134 Date of Service: 09/09/171133 Status: Signed Paleologist: Sheila Tony RPH (Pharmacist) Vancomycin Monitoring Day [...] Service: Nephrology Author Type: Physician Filed: 09/09/17 113 Date of Service: 09/09/17 1124 Status: Signed Paleologist: Amrik Reyna MD (Physician) PCP : [facility] LOS: 2 days Ramona Oconnor is [...] 10/25/15 showed normal sized kidneys. 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 Primary clinical product specialist is Dr. Rey Essential HTN Anemia of [...] pro calcitonin and leucocytosis without any alter cahto diagnosis. Clinically she improved with improved nausea/abdominal [...] completed later after rounds. Dictation software, was Major Aide, used which may contain error for similar [...] 09/09/17929 Date of Service: 09/09/17652 Status: Signed Paleologist: Jose C Kaye DO (Physician) [facility]: Infectious Disease Progress Note Hospital [...] patient's current pain. Code Status: Full Code OJSE C KAYE DO 09/09/2017 onversion Transaction , Provider Unknown - 09/08/2017 6:07 PM PDT Nurse Progress Note by Corine Bianchi RN at 09/08/17 7644 Author: Corine Bianchi RN Service: (none) Author Type: Registered Nurse Filed: 09/08/17 1834 Date of Service: 09/08/177 Status: Signed Paleologist: Corine Bianchi RN (Registered Nurse) Patient unable to tolerate Golytely. Antiemetics given with no relief. Doctor Gavi esteban. onver patric Transaction, Provider Unknown - 09/08/2017 4:49 PM PDT Case Management by LUCILLE Grimaldo at 09/08/171648 Author: LUCILLE Grimaldo Service: (none) Author Type: Supervisor Shed Workers Filed: 09/08/17 1656 Date of Service: 09/08/171648 Status: Signed Paleologist: LUCILLE Grimaldo (Supervisor Shed Workers) Discharge planning: Pending PT/OT recommendation. left message for Lazaro Meadows with [facility] . Lazaro would like to be updated on discharge plan when known. onver patric Transaction, Provider Unknown - 09/08/2017 1:44 PM PDT Pharmacy Note by Alex South RPH at 09/08/17 1344 Author: Alex South RPH Service: Pharmacy Author Type: Pharmacist Filed: 09/08/17 1344 Date of Service: 09/08/17 1344 Status: Signed Paleologist: Alex South RPH (Pharmacist) Vancomycin day 2, [...] Service: Hospitalist Author Type: Physician Filed: 09/08/17 6331 Date of Service: 09/08/17 1238 Status: Signed Paleologist: Cesar Gatica MD (Physician) Related Notes: Original Note by Cesar Gatica MD (Physician) filed at 09/08/17 1240 [facility]: Hospitalist Progress Note Hospital Day: [...] hours. No results for input(s): PHART, PO2ART, LES0UKY, S2AOIFIC, BEART in the last 168 hours. No [...] O ct 2016 3:38AM Referring Provider Line: [phone] ID: [id number] Ct Abdomen Pelvis With Iv [...] Sep 07 2017 1:06AM Referring Provider Line: [phone] ID: 109 Ultrasound Abdomen, Gallbladder Result Date: 09/06/2017 Mildly distended gallbladder without evidence of cholelithiasis or acute cholecystitis. No bile duct obstruction. RADIA Electronically signed by Stepan Wiggins on Sep 06 2017 11: 45PM Referring Provider Line: [phone] ID: [id number] PROBLEM LIST Principal Problem: Epigastric [...] Right ovarian hemorrhagic cyst. Outpatient followup with [facility]. 5. Leukocytosis, improved after antibiotics. 6. Hypokalemia. Defer to nephrology for further management. 7. DVT prophylaxis. Heparin. Code Status: Full Code Cesar Gatica MD 09/08/2017 12:38 PM Viri Moreno MD - 09/08/2017 8:46 AM PDT Progress Notes by Amrik Reyna MD at 09/08/17 0899 Author: Amrik Reyna MD Service: Nephrology Author Type: Physician Filed: 09/08/17 1211 Date of Service: 09/08/17845 Status: Addendum Paleologist: Amrik Reyna MD (Physician) Related Notes: Original Note by Amrik Reyna MD (Physician) filed at 09/08/17 0857 PCP : [facility] LOS: 1 day Ramona Oconnor is [...] 10/25/15 showed normal sized kidneys. 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 Primary clinical product specialist is Dr. Rey Essential HTN Anemia of [...] completed later after rounds. Dictation software, was Major Aide, used which may contain error for similar [...] Management by Grazyna Nails RN at 09/07/17 1609 Author: Grazyna Nails RN Service: (none) Author Type: Registered Nurse Filed: 09/07/17 161 Date of Service: 09/07/171606 Status: Signed Paleologist: Grazyna Nails RN (Registered Nurse) 09/07/171601 Discharge Planning Evaluation Admitting Diagnosis intractable abdominal pain Readmission No Living Arrangements Spouse/significant other;Family members (pt resides w/spouse Julian and sister and family) Support Systems Parent;Family members;Spouse/significant other (CM spoke to pt mother Lyubov [phone]) Type of Residence Private residence House type House-1 story Bathrooms on 1st Floor 1-Full Independent with ADL's Yes Independent with Mobility Yes Home Care Services Yes Type of Home Care Services Attendant ([facility]) Mental Status Oriented (pt sleeping during assessment, CM spoke to pt mother ) Anticipated Discharge Plan Post Acute Care Needs Home Health Services ([facility] in place) Home Health Services Nursing;PT Resources Financial concerns No Transportation issues No Patient/Family concerns [place] [facility] Previous home health equipment No Vascular access device No Ostomy/Drains/Appliances Yes (pt has peritoneal dialysis) Anticipated Disposition Facility Type Home CM met with pt mother Lyubov [phone] and discussed discharge planning, Pt is a 37 y.o. , female resides w/spouse Jose C at pt sister and family home. Patient has peritoneal dialysi s nightly. Pt followed by [facility]. Patient is independent with ADL's and ambul ation. 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 No d/c needs reported via pt mother. Patient's PCP is: [facility] Patient's insurance: [employer] Coverage concerns: no Medication coverage/concerns: Rx Bedside Delivery: Community resources utilized / needed: pt has [facility] health Assistance in transportation: pt spouse to [...] 1442 Date of Service: 09/07/176 Status: Addendum Paleologist: Cesar Gatica MD (Physician) Related Notes: Original [...] 09/07/17645 Date of Service: 09/07/17645 Status: Signed Paleologist: Paulie Read RPH (Pharmacist) Renal Dosing Monitoring: [...] LAB | | | | performed at [facility], [address] | | | | | [address], | | | | | | [place] [address] | | | | | | | [...] | | | | | [place] [address] | | | | + + + [...] W | | | | | | [facility], | | | | | | [place] [address] | | | | + + + [...] EXTERNAL | | | | performed at [facility], [address] | | LAB | | | | [address], | | | | | | [place] [address] | | | | + + + [...] | | | | | | at [facility], [address] | | | | | | [address], | | | | | | [place] [address] | | | | + + + [...] | | range: Negative Testing performed by [place], [facility], | | | [place] [address] | | + + + + +---------+ [...] | | | Basophils | performed at [facility], [address] | K/[address] | LAB | | | | [address], | | | | | | [place] [address] | | | | + + + [...] EXTERNAL | | | | performed at [facility], [address] | | LAB | | | | [address], | | | | | | [place] [address] | | | | + + + [...] | | Random | performed at [facility];[address] | | LAB | | | | [address];[place], [place] | | | | | | [address] | | | | + + + [...] Any, | | | | | | [place] [address] | | | | + + + [...] | | performed at [facility] | | LAB | | | | [address];[place] | | | | | | [address] | | | | + + + [...] | | | Basophils | performed at [facility], [address] | K[address] | LAB | | | | [address], | | | | | | [place] [address] | | | | + + + [...] | | performed at [facility] | | LAB | | | | [address];[place], [place] | | | | | | [address] | | | | + + + [...] | | performed at [facility];[address] | | LAB | | | | [address];[place], [place] | | | | | | [address] | | | | + + + [...] | | Random | performed at [facility] | | LAB | | | | [address];[place], [place] | | | | | | [address] | | | | + + + [...] | | | | | at [facility];[address] [place] [address] | | | | | | [facility];[place] [address] | | | | + + + [...] | | Basophils | performed at [facility];[address] | [address] | LAB | | | | [address];[place], [place] | | | | | | [address] | | | | + + + [...] at [facility];[address] | | LAB | | | | [address] [facility];[place], [place] | | | | | | [address] | | | | + + + [...] | | Random | performed at [facility];[address] | | LAB | | | | [address];[place], [place] | | | | | | [address] | | | | + + + [...] | | | | | at [facility];[address] [place] [address] | | | | | | [facility];[place] [address] | | | | + + + [...] | | | Basophils | performed at [facility], [address] | K/u[address] | LAB | | | | [address], | | | | | | [place] [address] | | | | + + + [...] at [facility];[address] | | LAB | | | | [address];[place] | | | | | | [address] | | | | + + + [...] at [facility];[address] | | LAB | | | | [address];[place], [place] | | | | | | [address] | | | | + + + [...] | | | | | at [facility];[address] [place] [address] | | | | | | Bl;[place] [address] | | | | + + + [...] | APPEARANCE CLEAR RBC'S | | | <31692 TOTAL NUCLEATED | | | CELLS 127 NEUTROPHILS | | | 56 LYMPHOCYTES | | | 5 MONOCYTES/MACROPHAGES | | | 39 CELLS COUNTED 100 | | | Testing performed at [facility];[address] [facility];[place] [address] | | + + + + +---------+ [...] | | | | | at [facility];[address] [facility] | | | | | | [facility];[place] [address] | | | | + + + [...] | | | | | | at [facility], [address] | | | | | | [address], | | | | | | [place] [address] | | | | + + + [...] | | | | | performed at [facility], [address] | | | | | | [facility], | | | | | | [place] [address] | | | | + + + [...] 3:38AM | | | Referring Provider Line: [phone] ID: [id number] | | + + + [...] 2017 3:38AM Referring Provider | | Line: [phone] ID: [id number] | |Cervix: No suspicious lesion. [...] Sep 07 2017 3:38AM Referring Provider Line: [phone] ID: [id number] | + + Lactic Acid [...] performed at [facility];[address] | mmol/L | LAB | | | | [address];[place] | | | | | | [address] | | | | + + + [...] Aug | 2016 1:06AM Referring Provider Line: [phone] ID: [id number] | | + + + [...] | | 2016 1:06AM Referring Provider Line: [phone] ID: [id number] | |Kidneys: No solid appearing [...] Sep 07 2017 1:06AM Referring Provider Line: [phone] ID: 109 | + + US Abdomen [...] 11:45PM | | | Referring Provider Line: [phone] ID: [id number] | | + + + [...] 2017 11:45PM Referring Provider | | Line: [phone] ID: [id number] | | | |FINDINGS: | [...] 06 2017 11:45PM Referring Provider Line : [phone] ID: [id number] | + + Lactic Acid [...] performed at [facility];[address] | mmol/L | LAB | | | | [address];[place], [place] | | | | | | [address] | | | | + + + [...] | | Basophils | performed at [facility];[address] | K/uL | LAB | | | | [address];[place] | | | | | | [address] | | | | + + + [...] at [facility];888 | | LAB | | | | [address];[place], [place] | | | | | | [address] | | | | + + + [...] | | | | | at [facility];[address] [place] [address] | | | | | | [facility];[place] [address] | | | | + + + [...]
--- OUTSIDE RECORDS SUMMARY | ~2020-04-05 | XMS | Encounter Summary ---
Demographics + + + | Address | [address] | | | [place] [address] | + + + | Home Phone [...] [place], [place] | | | | | [address] | | + + + + + | Lydia Palm | ECON | [place], [place] | | | | | [address] | | + + + + + | melinda METZ" | ECON | [place], [place] | | | reba | | [address] | | + + + + + | Jose C Oconnor | ECON | [place] | | | | | [place] | | | | | [address] | | + + + + + Care Team Providers + +------+ + | Care Finish Repair Worker Name | Role | Phone | [...] + + | 08/26/ | Hospital | [facility] | PoQasim de la rosa MD | End-stage renal | | 2019 - | Encounter | [facility] | [address] | disease ([facility]) | | | | INTENSIVE CARE UNIT | [place], [place] | (Primary Dx); | | 08/28/ | | [address] | [address] | Bleeding from | | 2019 | | [place], [place] | | dialysis shunt, | | | | [address] | Frances Rush DO | initial encounter | | | | [phone] | [address] | ([facility]); AV graft | | | | | [place] [address] | malfunction, initial | | | | | [phone] | encounter ([facility]); | | | | | | Gastroesophageal | | | | | Mt Montoya MD | reflux disease | | | | | [address] | without esophagitis; | | | | | [place] [address] | Hyperphosphatemia; | | | | | [phone] | Leukocytosis, | | | | | | unspecified type; | | | | | Alyce Sparks MD | S/P arteriovenous | | | | | [address] | (AV) graft repair; | | | | | [place] [address] | Shock (HCC); Wound, | | | | | [phone] | surgical, | | | | | [...] Physician Discharge Summary Patient ID: Ramona Oconnor [id number] 39 y.o. 1980 Admit date: 08/26/2019 Discharge [...] might be different f rom the original. [facility] Service: Vascular Surgery Progress Note Post-Op Day: 1 SUBJECTIVE Patient Summary: The patient is a 39 y.o. female with significant past medical histor y of ESRD who presented to [facility] with profuse bleeding from her left axillary AVG af ter wound packing was removed. Per emergency department physician report, the patient had ab out 250ml blood loss, venous bleeding. She received 2 units PRBC transfusion and 1Liter susana talloid. She has been hemodynamincally stable. Patient transferred to [facility] for emergency janine viviana and [...] Man Jeronimo PA-C Vascular Surgery cFerLashawn britt, CURTAIN STRETCHER - 08/28/2019 3:45 AM PDTFormatting of this note might be different from the [facility]: Finishing Manager Progress Note Ramona Oconnor 39 [facility].o. Hospital [...] patie nt has been followed by the [facility] wound care clinic. She presented to [facility] ED from [facility] wound care clinic with profuse bleeding of her L axilla after her wound packing was remov ed. Per report EBL was 250 cc of venous blood. She received 1 L crystalloid and 2 units PRBC prior to arrival at [facility] and remained hemodynamically stable. Patient was transferred to [facility] for ligation of the AVG with Dr. [...] Last HD 08/25. See Dr. Chi following, BLUEBERRY GROWER per nephrology. 1.5 L fluid restricti on in 24 hours per Nephrology. Renally dose medication and avoid nephrotoxins Monitor I/Os Monitor electrolytes. Hyperphosphatemia. Resolved. Continue home dose of Renvela once patient eating. Hyperkalemia. BLUEBERRY GROWER per Nephrology ID: Patient with nonhealing AVG wound. Followed by [facility] wound care clinic. Patient was not [...] PA- C - 08/27/2019 12:31 PM PDT [facility] Service: Vascular Surgery Progress Note Post-Op Day: 1 SUBJECTIVE Patient Summary: The patient is a 39 y.o. female with significant past medical histor y of ESRD who presented to [facility] with profuse bleeding from her left axillary AVG af ter wound packing was removed. Per emergency department physician report, the patient had ab out 250ml blood loss, venous bleeding. She received 2 units PRBC transfusion and 1Liter susana talloid. She has been hemodynamincally stable. Patient transferred to [facility] for emergency janine viviana and [...] note might be different from the [facility]: Finishing Manager Progress Note Ramona Emmanuel Elvin 39 y.o. [...] patie nt has [facility]. She presented to [facility] ED from [facility] wound care clinic with profuse bleeding of her L axilla after her wound packing was remov ed. Per report EBL was 250 cc of venous blood. She received 1 L crystalloid and 2 units PRBC prior to arrival at [facility] and remained hemodynamically stable. Patient was transferred to [facility] for ligation of the AVG with Dr. [...] nephrology in AM no urgent need for BLUEBERRY GROWER overnight. Renally dose medication and avoid nephrotoxins Monitor I/Os Monitor electrolytes. Hyperphosphatemia. Continue home dose of Renvela. ID: Patient with nonhealing AVG wound. Followed by [facility] wound care clinic. Patient was not [...] had accessed port in rout e to [facility]. This RN started PIV to right upper arm/AC area when patient brought to pacu. This info reported to DEPUTY PROBATION OFFICER. 8: 33 PM PDTdocumented in this encounter [...] at [facility];888 | | LABORATORY | | | | [address];[place] | | | | | | [address] | | | | + + + + + + + + | Specimen | + + | Blood | + + + + + + + | Performing | Address | City/State/Zipcode | Phone Number | | Organization | | | | + + + + + | [facility] | [address] | [place] [address] | [phone] | + + + + + Magnesium (08/28/2019 4:02 AM PDT) + + + + + + | Component | Value | Ref Range | Performed | Pathologist | | | | | At | Signature | + + + + + + | Magnesium | 2.5 (H)Comment: Testing | 1.7 - 2.4 mg/dL | [facility] | | | | performed at [facility];888 | | LABORATORY | | | | [address];[place] | | | | | | [address] | | | | + + + + + + + + | Specimen | + + | Blood | + + + + + + + | Performing | Address | City/State/Zipcode | Phone Number | | Organization | | | | + + + + + | [facility] | [address] | [place] [address] | [phone] | + + + + + CBC [...] | | Absolute | performed at [facility];[address] | K/uL | LABORATORY | | | | [address];[place], [place] | | | | | | [address] | | | | + + + + + + + + | Specimen | + + | Blood | + + + + + + + | Performing | Address | City/State/Zipcode | Phone Number | | Organization | | | | + + + + + | [facility] | [address] | [place] [address] | [phone] | + + + + + Basic [...] (L)Comment: GFR <60: | >60 | [facility] | | | GFR | [...] | | performed at [facility] | | | | | | [facility];[place], [place] | | | | | | [address] | | | | + + + + + + + + | Specimen | + + | Blood | + + + + + + + | Performing | Address | City/State/Zipcode | Phone Number | | Organization | | | | + + + + + | [facility] | [address] | [place] [address] | [phone] | + + + + + Hepatitis B Surface Ag (08/28/2019 4:02 AM PDT) + + + + + + | Component | Value | Ref Range | Performed | Pathologist | | | | | At | Signature | + + + + + + | Hepatitis B | NON REACTIVEComment: | NR | [facility] | | | Surface Ag | Testing performed at | | LABORATORY | | | | L, [address] | | | | | | [place] | | | | | | [address] | | | | + + + + + + + + | Specimen | + + | Blood | + + + + + + + | Performing | Address | City/State/Zipcode | Phone Number | | Organization | | | | + + + + + | [facility] | [address] | [place] [address] | [phone] | + + + + + Potassium (08/27/2019 7:52 PM PDT) + + + + + + | Component | Value | Ref Range | Performed | Pathologist | | | | | At | Signature | + + + + + + | K | 3.8Comment: Testing | 3.5 - 4.9 | [facility] | | | | performed at [facility];888 | mmol/L | LABORATORY | | | | [address];[place] | | | | | | [address] | | | | + + + + + + + + | Specimen | + + | Blood | + + + + + + + | Performing | Address | City/State/Zipcode | Phone Number | | Organization | | | | + + + + + | [facility] | [address] | [place] [address] | [phone] | + + + + + Hepatitis [...] | | | | TCL, [address] | | | | | | [place], [place] | | | | | | [address] | | | | + + + + + + + + | Specimen | + + | Blood - Entire left | | ankle (body | | structure) | + + + + + + + | Performing | Address | City/State/Zipcode | Phone Number | | Organization | | | | + + + + + | [facility] | [address] | [place] [address] | [phone] | + + + + + POC [...] at [facility];[address] | | LABORATORY | | | | [address];[place] | | | | | | [address] | | | | + + + + + + + + | Specimen | + + | | + + + + + + + | Performing | Address | City/State/Zipcode | Phone Number | | Organization | | | | + + + + + | [facility] | [address] | [place] [address] | [phone] | + + + + + Basic [...] (L)Comment: GFR <60: | >60 | [facility] | | | GFR | [...] | | performed at [facility] | | | | | | [facility];[place], [place] | | | | | | [address] | | | | + + + + + + + + | Specimen | + + | Blood | + + + + + + + | Performing | Address | City/State/Zipcode | Phone Number | | Organization | | | | + + + + + | [facility] | [address] | [place] [address] | [phone] | + + + + + Basic [...] (L)Comment: GFR <60: | >60 | [facility] | | | GFR | [...] | | performed at [facility];88 | | | | | | [facility];[place], [place] | | | | | | [address] | | | | + + + + + + + + | Specimen | + + | | + + + + + + + | Performing | Address | City/State/Zipcode | Phone Number | | Organization | | | | + + + + + | [facility] | [address] | [place] [address] | [phone] | + + + + + Phosphorus [...] at [facility];[address] | | LABORATORY | | | | [address];[place] | | | | | | [address] | | | | + + + + + + + + | Specimen | + + | Blood | + + + + + + + | Performing | Address | City/State/Zipcode | Phone Number | | Organization | | | | + + + + + | [facility] | [address] [facility] | [place] [address] | [phone] | + + + + + Magnesium (08/27/2019 4:14 AM PDT) + + + + + + | Component | Value | Ref Range | Performed | Pathologist | | | | | At | Signature | + + + + + + | Magnesium | 2.8 (H)Comment: Testing | 1.7 - 2.4 mg/dL | [facility] | | | | performed at [facility];[address] | | LABORATORY | | | | [address];[place] | | | | | | [address] | | | | + + + + + + + + | Specimen | + + | Blood | + + + + + + + | Performing | Address | City/State/Zipcode | Phone Number | | Organization | | | | + + + + + | [facility] | [address] | [place] [address] | [phone] | + + + + + CBC [...] | | performed at [facility] | | | | | | [address];[place] | | | | | | [address] | | | | + + + + + + + + | Specimen | + + | Blood | + + + + + + + | Performing | Address | City/State/Zipcode | Phone Number | | Organization | | | | + + + + + | [facility] | [address] | [place] [address] | [phone] | + + + + + Culture, [...] | | LABORATORY | | | | Blvd;[place] [address] | | | | + + + + + + | RESULT | NO GROWTH 6 DAYS | | [facility] | | | | | | LABORATORY | | + + + + + + | RESULT | Testing performed at | | [facility] | | | | TCL, [address] | | LABORATORY | | | | [place] | | | | | | [id number]: Testing | | | | | | performed at [facility], [address] | | | | | | [address] [place], [place] | | | | | | [address] | | | | + + + + + + + + | Specimen | + + | Blood - Peripheral | | blood specimen | | (specimen) | + + + + + + + | Performing | Address | City/State/Zipcode | Phone Number | | Organization | | | | + + + + + | [facility] | [address] | [place] [address] | [phone] | + + + + + Procalcitonin (08/26/2019 9:29 PM PDT) + + + + + + | Component | Value | Ref Range | Performed | Pathologist | | | | | At | Signature | + + + + + + | PROCALCITON | 0.80 (H)Comment: | <0.5 ng/mL | [facility] | | | IN | [...] | | | at [facility];[address] [place] [address] | | | | | | [facility];[place] [address] | | | | + + + + + + + + | Specimen | + + | Blood | + + + + + + + | Performing | Address | City/State/Zipcode | Phone Number | | Organization | | | | + + + + + | [facility] | [address] | [place] [address] | [phone] | + + + + + Lactic Acid (08/26/2019 9:29 PM PDT) + + + + + + | Component | Value | Ref Range | Performed | Pathologist | | | | | At | Signature | + + + + + + | Lactate, | 1.8Comment: Testing | 0.4 - 2.0 | [facility] | | | Serum | performed at [facility];888 | mmol/L | LABORATORY | | | | [address];[place], [place] | | | | | | [address] | | | | + + + + + + + + | Specimen | + + | Blood | + + + + + + + | Performing | Address | City/State/Zipcode | Phone Number | | Organization | | | | + + + + + | [facility] | [address] | [place] [address] | [phone] | + + + + + Culture, [...] | | LABORATORY | | | | Blvd;[place] [address] | | | | + + + + + + | RESULT | NO GROWTH 6 DAYS | | [facility] | | | | | | LABORATORY | | + + + + + + | RESULT | Testing performed at | | [facility] | | | | TCL, [address] | | LABORATORY | | | | [place], [place] | | | | | | [address]Ejhgyep: Testing | | | | | | performed at [facility], [address] | | | | | | [facility], [place], [place] | | | | | | [address] | | | | + + + + + + + + | Specimen | + + | Blood - Peripheral | | blood specimen | | (specimen) | + + + + + + + | Performing | Address | City/State/Zipcode | Phone Number | | Organization | | | | + + + + + | [facility] | [address] [facility] | [place] [address] | [phone] | + + + + + MRSA [...] at [facility];[address] | | LABORATORY | | | | [address];[place], [place] | | | | | | [address] | | | | + + + + + + + + | Specimen | + + | Tissue - Both | | anterior nares (body | | structure) | + + + + + + + | Performing | Address | City/State/Zipcode | Phone Number | | Organization | | | | + + + + + | [facility] | [address] | [place] [address] | [phone] | + + + + + Basic [...] 8.4 (L) | 8.5 - 10.5 | [facility] | | | | | mg/dL | LABORATORY | | + + + + + + | Estimated | 6 (L)Comment: GFR <60: | >60 | [facility] | | | GFR | [...] | | performed at [facility] | | | | | | [facility];[place], [place] | | | | | | [address] | | | | + + + + + + + + | Specimen | + + | Blood | + + + + + + + | Performing | Address | City/State/Zipcode | Phone Number | | Organization | | | | + + + + + | [facility] | [address] | [place] [address] | [phone] | + + + + + Phosphorus [...] at [facility];[address] | | LABORATORY | | | | [address];[place], [place] | | | | | | [address] | | | | + + + + + + + + | Specimen | + + | Blood | + + + + + + + | Performing | Address | City/State/Zipcode | Phone Number | | Organization | | | | + + + + + | [facility] | [address] | [place] [address] | [phone] | + + + + + Magnesium [...] | | performed at [facility] | | LABORATORY | | | | [facility];[place], [place] | | | | | | [address] | | | | + + + + + + + + | Specimen | + + | Blood | + + + + + + + | Performing | Address | City/State/Zipcode | Phone Number | | Organization | | | | + + + + + | [facility] | [address] | [place] [address] | [phone] | + + + + + CBC [...] LABORATORY | | | | performed at [facility] | | | | | | [facility];[place], [place] | | | | | | [address] | | | | + + + + + + + + | Specimen | + + | Blood | + + + + + + + | Performing | Address | City/State/Zipcode | Phone Number | | Organization | | | | + + + + + | [facility] | [address] | [place] [address] | [phone] | + + + + + POC [...] at [facility];[address] | | LABORATORY | | | | [address];[place] | | | | | | [address] | | | | + + + + + + + + | Specimen | + + | | + + + + + + + | Performing | Address | City/State/Zipcode | Phone Number | | Organization | | | | + + + + + | [facility] | [address] | [place] [address] | [phone] | + + + + + POC [...] [facility];[address] | g/dL | LABORATORY | | | | [address];[place], [place] | | | | | | [address] | | | | + + + + + + + + | Specimen | + + | | + + + + + + + | Performing | Address | City/State/Zipcode | Phone Number | | Organization | | | | + + + + + | [facility] | [address] | [place] [address] | [phone] | + + + + + Echo [...] [facility];888 | g/dL | LABORATORY | | | | [address];[place] | | | | | | [address] | | | | + + + + + + + + | Specimen | + + | | + + + + + + + | Performing | Address | City/State/Zipcode | Phone Number | | Organization | | | | + + + + + | [facility] | [address] | [place] [address] | [phone] | + + + + + documented in this encounter Visit Diagnoses + + | Diagnosis | + + | End-stage renal disease (HCC) End stage renal disease | + + | Bleeding from dialysis shunt, initial encounter ([facility]) | + + | AV graft malfunction, [...] DAILY PRN, Constipation, | | | Starting [facility] 08/26/19 at 2010, If | | [...] | | | | | | | xkqpep-wwe-ewnrb use of at least | | | [...] | Decreased Responsiveness, | | | Starting [facility] 08/27/19 at 0637 | | + +---+ | | | + +---+ | ondansetron (ZOFRAN) 2 mg/mL | | | injection Starting [facility] 08/26/19 | | | at 2006, [...]
--- OUTSIDE RECORDS SUMMARY | ~2020-04-05 | XMS | Encounter Summary ---
Demographics + + + | Address | [address] | | | [place] [address] | + + + | Home Phone [...] [place], [place] | | | | | [address] | | + + + + + | Lydia Palm | ECON | [place], [place] | | | | | [address] | | + + + + + | melinda METZ" | ECON | [place], [place] | | | [place]ba | | [address] | | + + + + + | Jose C Oconnor | ECON | [address] [place] | | | | | [place] | | | | | [address] | | + + + + + Care Team Providers + +------+ + | Care Sales Porter Name | Role | Phone | + +------+ + | Juan F Whitley DO | PCP | | + +------+ + Encounter Details +--------+ + + + + | Date | Type | Department | Care Team | Description | +--------+ + + + + | 06/07/ | Hospital | [facility] | Rafiq Flood MD | End-stage renal | | 2018 - | Encounter | [facility] | [address] | disease on | | | | CARE FLOOR [address] | [place] [address] | peritoneal dialysis | | 06/09/ | | [address] | [phone] | ([facility]) | | 2018 | | [place], [place] | | | | | | [address] | | | | | | [phone] | | | +--------+ + + + [...] Service: Hospitalist Author Type: Physician Filed: 06/09/18 3930 Date of Service: 06/09/18 1056 Status: Signed Build Master: Roque Wyatt DO (Physician) [facility] Service: Hospitalist Discharge Summary Date of [...] to f/u with her PCP and/or dialysis human services case manager in [facility]. All of this was discussed with patient [...] Code [place]: [place] [address] [place] [address] Medication List CHANGE how you [...] Refills: 0 Commonly known as: NORVASC ergocalciferol 60489 units capsule Refills: 0 Commonly known as: [...] Service: (none) Author Type: Registered Nurse Filed: 06/09/187 Date of Service: 06/09/181733 Status: Signed Build Master: Marixa Juarez RN (Registered Nurse) All discharge instructions and prescription information reviewed with pt and pt's mother. Pt states understanding and denies further questions. Pt states her ride will be here aroun d 1830. Marixa Juarez RN Cathie Henson MD - 06/09/2018 11:05 AM PDTFormatting of this note might be differen t from the original. Progress Notes by Cathie Marroquin MD at 06/09/18 1101 Author: Cathie Marroquin MD Service: Infectious Disease Author Type: Alexi an Filed: 06/09/181115 Date of Service: 06/09/181104 Status: Signed Build Master: Cathie Marroquin MD (Physician) [facility] Service: Infectious Diseases Progress Note Hospital [...] not have adequate fluid to aspirate at [facility] where the initial diagnosis of SBP was entertained. While at [facility], patient has been afebrile with appropriate trends [...] Note by Torrie Whelan RPH at 06/09/18 4790 Author: Torrie Whelan RPH Service: Pharmacy Author Type: Pharmacist Filed: 06/09/18 1028 Date of Service: 06/09/188 Status: Signed Build Master: Torrie Whelan RPH (Pharmacist) Vancomycin Monitoring: Random level this AM returned elevated @31.5 Will not receive a dose today Will order another random with AM labs for tomorrow Pharmacy to continue to monitor and dose as appropriate Torire Whelan-PharmD onver patric Transaction, Provider Unknown - 06/09/2018 5:34 AM PDT Progress Notes by [facility] at 06/09/18533 Author: Drew Renae RPH Service: Pharmacy Author Type: Pharmacist Filed: 06/09/18533 Date of Service: 06/09/18533 Status: Signed Build Master: Drew Renae RPH (Pharmacist) Pharmacy vancomycin notes level 06/09 0431 31.52 no dose today per protocol and pharmacy will follow [facility] 0533 onver patric Transaction, Provider Unknown - 06/09/2018 2:29 AM PDT Nurse Progress Note by Katherine Ramos RN at 06/09/18228 Author: Katherine Ramos RN Service: (none) Author Type: Registered Nurse Filed: 06/09/18228 Date of Service: 06/09/18228 Status: Signed Build Master: Katherine Ramos RN (Registered Nurse) Patient with [...] Notes by Arelis Maloney MD at 06/08/18 9910 Author: Arelis Maloney MD Service: Hospitalist Author Type: Physician Filed: 06/08/182250 Date of Service: 06/08/182244 Status: Signed Build Master: Arelis Maloney MD (Physician) [facility] Service: Hospitalist Progress Note Hospital Day: [...] hours. No results for input(s): PHART, PO2ART, ISJ9PDN, G8HHBEAZ, BEART in the last 168 hours. Recent [...] 05 2018 1 :44AM Referring Provider Line: [phone] ID: [id number] Xr Chest Pa And Lateral [...] Jun 05 2018 4:27AM Referring Provider Line: [phone] ID: [id number] PROBLEM LIST Principal Problem: Sepsis [...] 06/08/181855 Date of Service: 06/08/181851 Status: Signed Build Master: Daisha Atwood RN (Registered Nurse) A/Ox4, pt [...] Management by Saeid Mack RN at 06/08/18 8915 Author: Saeid Mack RN Service: (none) Author Type: Registered Nurse Filed: 06/08/18 7023 Date of Service: 06/08/181444 Status: Signed Build Master: Saeid Mack RN (Registered Nurse) 06/08/18 7688 Discharge Planning Evaluation Admitting Diagnosis sepsis Readmission No Living Arrangements Other (Comment) Support Systems Spouse/significant other;Family members Type of Residence Private residence Independent with ADL's Yes Independent with Mobility Yes Mental Status Oriented Resources Financial concerns No Transportation issues No Patient/Family concerns No Prescription Plan Yes Name of Pharmacy [facility] Previous home health equipment No Vascular access device (PD access) Anticipated Disposition Facility Type Home Met with Ramona and discussed discharge planning, Pt is a 38 y.o., female who is independent and lives with her spouse. She does peritoneal dialysis at home and has support from the [employer] in [place]. Patient's PCP is:Juan F Whitley Patient's insurance:[employer]/ Medicare part A Coverage concerns: none Medication coverage/concerns: yes/no Community resources utilized / needed:Monique from [facility] [phone] can arrange for PICC care if needed. Assistance in transportation: spouse Identification of any specific education / training: none Barriers to Discharge / Alternative housing needed: none Anticipated DCP: Home with spouse but may need home IV anti biotics Saeid Mack onver patric Transaction, Provider Unknown - 06/08/2018 1:04 PM PDT Pharmacy Note by Naheed Lala RPH at 06/08/18 1301 Author: Naheed Lala RPH Service: Pharmacy Author Type: Pharmacist Filed: 06/08/18 4650 Date of Service: 06/08/18 1304 Status: Signed Build Master: Naheed Lala RPH (Pharmacist) ESRD on peritoneal dialysis. Will decrease Metoclopramide dose by 50% Changed from 10 mg q6h to 5 mg q6h onver patric Transaction, Provider Unknown - 06/08/2018 12:37 PM PDT Pharmacy Note by Naheed Lala RPH at 06/08/18 8987 Author: Naheed Lala RPH Service: Pharmacy Author Type: Pharmacist Filed: 06/08/18 7884 Date of Service: 06/08/18 1237 Status: Addendum Build Master: Naheed Lala RPH (Pharmacist) Related Notes: Original [...] 06/08/1853 Date of Service: 06/08/18648 Status: Signed Build Master: Katherine Ramos RN (Registered Nurse) Patient currently [...] 06/08/1847 Date of Service: 06/08/18546 Status: Signed Build Master: Drew Renae RPH (Pharmacist) Pharmacy vancomycin notes [...] 06/08/1819 Date of Service: 06/08/1819 Status: Signed Build Master: Drew Renae RPH (Pharmacist) Note ccl 4.8ml/min ESRD meds reviewed pharmacy will follow [facility]dc 0020 onver patric Transaction, Provider Unknown - 06/07/2018 8:54 PM PDT Nurse Progress Note by Katherine Ramos RN at 06/07/182053 Author: Katherine Ramos RN Service: (none) Author Type: Registered Nurse Filed: 06/07/182058 Date of Service: 06/07/182053 Status: Signed Build Master: Katherine Ramos RN (Registered Nurse) Received report [...] | | | | | [place] [address] | | | | + + + [...] | | | Random | performed at [facility];[address] | [address] | | | [address];[place], [place] | | | | | | [address] | | | | + + + [...] | | performed at [facility], [address] | | | | | | [facility], | | | | | | [place] [address] | | | | + + + [...] 2 Testing performed | | | at [facility];[address];[place] [address] | | + + + + +---------+ [...] | | | Basophils | performed at [facility], [address] | [address] | LAB | | | | [address], | | | | | | [place] [address] | | | | + + + [...] EXTERNAL | | | | performed at [facility], [address] | | LAB | | | | [address], | | | | | | [place] [address] | | | | + + [...] | | | | | [place] [address] | | | | + + + [...] | | performed at [facility], [address] | | | | | | [facility], | | | | | | [place] [address] | | | | + + + [...] NEGATIVE Testing | | | performed at [facility];[address];[place] [address] | | + + + + +---------+ [...]
--- OUTSIDE RECORDS SUMMARY | ~2020-04-05 | XMS | Encounter Summary ---
Demographics + + + | Address | [address] | | | [place] [address] | + + + | Home Phone [...] [place], [place] | | | | | [address] | | + + + + + | Lydia Palm | ECON | [place], [place] | | | | | [address] | | + + + + + | melinda METZ" | ECON | [place], [place] | | | [place] | | [address] | | + + + + + | Jose C Oconnor | ECON | [address] | | | | | [place] | | | | | [address] | | + + + + + Care Team Providers + +------+ + | Care Manufacturing Technologist Name | Role | Phone | [...] | Radiology | Diagnoses | Tres | [facility] | | | | | End-stage | Shad Raymundo MD | Intra Op [address] | | | | | renal | [address] | | | | | disease | [employer] | [place], [place] | | | | | ([facility]) | Drive [address] | [address] | | | | | Procedures | Saeid | Phone: | | | | | IR | [place] [address] | [phone] | | | | | Replacement | Phone: | Fax: | | | | | Tunneled | [phone] | [phone] | | | | | Cath | Fax: | | | | | | | [phone] | | +--------+--------+ + + + + Encounter Details +--------+ + + + + | Date | Type | Department | Care Team | Description | +--------+ + + + + | 11/04/ | Telephone | [facility] | Demar Ponce, | | | 2018 | | INTERVENTIONAL | RN | | | | | RADIOLOGY [address] | | | | | | [address] | | | | | | [place], [place] | | | | | | [address] | | | | | | [phone] | | | +--------+ + + + [...]
--- OUTSIDE RECORDS SUMMARY | ~2020-04-05 | XMS | Encounter Summary ---
Demographics + + + | Address | [address] | | | [place] [address] | + + + | Home Phone [...] [place], [place] | | | | | [address] | | + + + + + | Lydia Palm | ECON | [place], [place] | | | | | [address] | | + + + + + | melinda METZ" | ECON | [place], [place] | | | [place] | | [address] | | + + + + + | Jose C Oconnor | ECON | [address] [place] | | | | | [place] | | | | | [address] | | + + + + + Care Team Providers + +------+ + | Care Supervisor Tumbling And Rolling Name | Role | Phone | + +------+ + | No, Physician | PCP | Unavailable | + +------+ + Encounter Details +--------+ + + + + | Date | Type | Department | Care Team | Description | +--------+ + + + + | 08/24/ | Prep for | [facility] | Qasim Pederson MD | Infection of | | 2019 | Procedure | VASCULAR SURGERY | [address] | arteriovenous | | | | [address] | [facility] | dialysis fistula, | | | | [facility] [place] | [address] | subsequent encounter | | | | [address] | | (Primary Dx); ESRD | | | | [phone] | | on hemodialysis | | | [...]
--- OUTSIDE RECORDS SUMMARY | ~2020-04-05 | XMS | Encounter Summary ---
Demographics + + + | Address | [address] | | | [place] [address] | + + + | Home Phone [...] [place], [place] | | | | | [address] | | + + + + + | Lydia Palm | ECON | [place], [place] | | | | | [address] | | + + + + + | melinda METZ" | ECON | [place], [place] | | | [place] | | [address] | | + + + + + | Jose C Oconnor | ECON | [address] | | | | | [place] | | | | | [address] | | + + + + + Care Team Providers + +------+ + | Care Coffee Urn Attendant Name | Role | Phone | [...] + + | 11/23/ | Telephone | [facility] | Nidhi Whitaker, | Surgery Appointment | | 2020 | | VASCULAR SURGERY | RN | | | | | [address] | | | | | | [place] | | | | | | [address] | | | | | | [phone] | | | +--------+ + + + [...]
--- OUTSIDE RECORDS SUMMARY | ~2020-04-05 | XMS | Encounter Summary ---
Demographics + + + | Address | [address] | | | [place] [address] | + + + | Home Phone [...] [place], [place] | | | | | [address] | | + + + + + | Lydia Palm | ECON | [place], [place] | | | | | [address] | | + + + + + | melinda METZ" | ECON | [place], [place] | | | [place] | | [address] | | + + + + + | Jose C Oconnor | ECON | [address] | | | | | [place] | | | | | [address] | | + + + + + Care Team Providers + +------+ + | Care Steel Detailer Name | Role | Phone | + +------+ + | Juan F Whitley PCP | | + +------+ + Encounter Details +--------+ + + + + | Date | Type | Department | Care Team | Description | +--------+ + + + + | 01/31/ | Emergency | [facility] | | | | 2018 | | [facility] | | | | | | [facility] | | | | | | [address] [facility] | | | | | | [place], [place] | | | | | | [address] | | | | | | [phone] | | | +--------+ + + + [...]
--- OUTSIDE RECORDS SUMMARY | ~2020-04-05 | XMS | Encounter Summary ---
Demographics + + + | Address | [address] | | | [place] [address] | + + + | Home Phone [...] [place], [place] | | | | | [address] | | + + + + + | Lydia Palm | ECON | [place], [place] | | | | | [address] | | + + + + + | melinda METZ" | ECON | [place], [place] | | | [place]ba | | [address] | | + + + + + | Jose C Oconnor | ECON | [place] | | | | | [place] | | | | | [address] | | + + + + + Care Team Providers + +------+ + | Care Garment Turner Name | Role | Phone | + [...] | | | | | ([facility]) | | | | | | [...] + + | 08/26/ | Surgery | [facility] | Qasim Pederson MD | REVISION LEFT | | 2019 | | [facility] | [address] | AXILLARY AVG; WILL | | | | OPERATING ROOM [address] | [place], [place] | NEED C-ARM, | | | | [address] | [address] | [employer] [place], | | | | [place], [place] | | [place] | | | | [address] | | | | | | [phone] | | | +--------+---------+ + + + [...] Physician Discharge Summary Patient ID: Ramona Oconnor [id number] 39 y.o. 1980 Admit date: 08/26/2019 Discharge [...] might be different f rom the original. [facility]: Vascular Surgery Progress Note Post-Op Day: 1 SUBJECTIVE Patient Summary: The patient is a 39 y.o. female with significant past medical histor y of ESRD who presented to [facility] with profuse bleeding from her left axillary AVG af ter wound packing was removed. Per emergency department physician report, the patient had ab out 250ml blood loss, venous bleeding. She received 2 units PRBC transfusion and 1Liter susana talloid. She has been hemodynamincally stable. Patient transferred to [facility] for emergency janine viviana and [...] note might be different [facility] Progress Note Ramonaandre Oconnor 39 [facility].o. Hospital [...] patie nt has been followed by the [facility] wound care clinic. She presented to [facility] ED from [facility] wound care clinic with profuse bleeding of her L axilla after her wound packing was remov ed. Per report EBL was 250 cc of venous blood. She received 1 L crystalloid and 2 units PRBC prior to arrival at [facility] and remained hemodynamically stable. Patient was transferred to [facility] for ligation of the AVG with [...] Last HD 08/25. See Dr. Chi following, ORDNANCE KEEPER per nephrology. 1.5 L fluid restricti on in 24 hours per Nephrology. Renally dose medication and avoid nephrotoxins Monitor I/Os Monitor electrolytes. Hyperphosphatemia. Resolved. Continue home dose of Renvela once patient eating. Hyperkalemia. ORDNANCE KEEPER per Nephrology ID: Patient with nonhealing AVG wound. Followed by [facility] wound care clinic. Patient was not [...] PA- C - 08/27/2019 12:31 PM PDT [facility]: Vascular Surgery Progress Note Post-Op Day: 1 SUBJECTIVE Patient Summary: The patient is a 39 y.o. female with significant past medical histor y of ESRD who presented to [facility] with profuse bleeding from her left axillary AVG af ter wound packing was removed. Per emergency department physician report, the patient had ab out 250ml blood loss, venous bleeding. She received 2 units PRBC transfusion and 1Liter susana talloid. She has been hemodynamincally stable. Patient transferred to [facility] for emergency janine viviana and [...] might be different from the ave maira. [facility]: Compliance Associate Progress Note Ramona Oconnor 39 y.o. Hospital [...] patie nt has been followed by the [facility] wound care clinic. She presented to [facility] ED from [facility] wound care clinic with profuse bleeding of her L axilla after her wound packing was remov ed. Per report EBL was 250 cc of venous blood. She received 1 L crystalloid and 2 units PRBC prior to arrival at [facility] and remained hemodynamically stable. Patient was transferred to [facility] for ligation of the AVG with [...] nephrology in AM no urgent need for ORDNANCE KEEPER overnight. Renally dose medication and avoid nephrotoxins Monitor I/Os Monitor electrolytes. Hyperphosphatemia. Continue home dose of Renvela. ID: Patient with nonhealing AVG wound. Followed by [facility] wound care clinic. Patient was not [...] had accessed port in rout e [place] [facility] This RN started PIV to right upper arm/AC area when patient brought to pacu. This info reported to TEXTILE CONSERVATOR. 8: 33 PM PDTdocumented in this encounter [...] Testing | 2.3 - 4.8 mg/dL | [facility] | | | | performed at [facility];[address] | | LABORATORY | | | | [address];[place], [place] | | | | | | [address] | | | | + + + + + + + + | Specimen | + + | Blood | + + + + + + + | Performing | Address | City/State/Zipcode | Phone Number | | Organization | | | | + + + + + | [facility] | [address] | [place] [address] | [phone] | + + + + + Magnesium (08/28/2019 4:02 AM PDT) + + + + + + | Component | Value | Ref Range | Performed | Pathologist | | | | | At | Signature | + + + + + + | Magnesium | 2.5 (H)Comment: Testing | 1.7 - 2.4 mg/dL | [facility] | | | | performed at [facility];[address] | | LABORATORY | | | | [address];[place] | | | | | | [address] | | | | + + + + + + + + | Specimen | + + | Blood | + + + + + + + | Performing | Address | City/State/Zipcode | Phone Number | | Organization | | | | + + + + + | [facility] | [address] | [place] [address] | [phone] | + + + + + CBC [...] | | Absolute | performed at [facility];[address] | K/uL | LABORATORY | | | | [address];[place] | | | | | | [address] | | | | + + + + + + + + | Specimen | + + | Blood | + + + + + + + | Performing | Address | City/State/Zipcode | Phone Number | | Organization | | | | + + + + + | [facility] | [address] | [place] [address] | [phone] | + + + + + Basic [...] 8.3 (L) | 8.5 - 10.5 | [facility] | | | | | mg/dL | LABORATORY | | + + + + + + | Estimated | 8 (L)Comment: GFR <60: | >60 | [facility] | | | GFR | [...] | | | | performed at [facility] | | | | | | [facility];[place], [place] | | | | | | [address] | | | | + + + + + + + + | Specimen | + + | Blood | + + + + + + + | Performing | Address | City/State/Zipcode | Phone Number | | Organization | | | | + + + + + | [facility] | [address] | [place] [address] | [phone] | + + + + + Hepatitis [...] | | LABORATORY | | | | [facility], [address] | | | | | | [place] | | | | | | [address] | | | | + + + + + + + + | Specimen | + + | Blood | + + + + + + + | Performing | Address | City/State/Zipcode | Phone Number | | Organization | | | | + + + + + | [facility] | [address] | [place] [address] | [phone] | + + + + + Potassium (08/27/2019 7:52 PM PDT) + + + + + + | Component | Value | Ref Range | Performed | Pathologist | | | | | At | Signature | + + + + + + | K | 3.8Comment: Testing | 3.5 - 4.9 | [facility] | | | | performed at [facility];888 | mmol/L | LABORATORY | | | | [address];[place] | | | | | | [address] | | | | + + + + + + + + | Specimen | + + | Blood | + + + + + + + | Performing | Address | City/State/Zipcode | Phone Number | | Organization | | | | + + + + + | [facility] | [address] | [place] [address] | [phone] | + + + + + Hepatitis [...] [place] | | | | | | [address] | | | | + + + + + + + + | Specimen | + + | Blood - Entire left | | ankle (body | | structure) | + + + + + + + | Performing | Address | City/State/Zipcode | Phone Number | | Organization | | | | + + + + + | [facility] | [address] | [place] [address] | [phone] | + + + + + POC Glucose (08/27/2019 9:29 AM PDT) + + + + + + | Component | Value | Ref Range | Performed | Pathologist | | | | | At | Signature | + + + + + + | Glucose, | 81Comment: Testing | 65 - 99 mg/dL | [facility] | | | POC | performed at [facility];[address] | | LABORATORY | | | | [address];[place] | | | | | | [address] | | | | + + + + + + + + | Specimen | + + | | + + + + + + + | Performing | Address | City/State/Zipcode | Phone Number | | Organization | | | | + + + + + | [facility] | [address] | [place] [address] | [phone] | + + + + + Basic [...] 5 (L)Comment: GFR <60: | >60 | [facility] | | | GFR | [...] | | | | performed at [facility];[address] | | | | | | [address] [facility];[place], [place] | | | | | | [address] | | | | + + + + + + + + | Specimen | + + | Blood | + + + + + + + | Performing | Address | City/State/Zipcode | Phone Number | | Organization | | | | + + + + + | [facility] | [address] | [place] [address] | [phone] | + + + + + Basic [...] 5 (L)Comment: GFR <60: | >60 | [facility] | | | GFR | [...] | | | | performed at [facility];[address] | | | | | | [address] [facility];[place], [place] | | | | | | [address] | | | | + + + + + + + + | Specimen | + + | | + + + + + + + | Performing | Address | City/State/Zipcode | Phone Number | | Organization | | | | + + + + + | [facility] | [address] | [place] [address] | [phone] | + + + + + Phosphorus (08/27/2019 4:14 AM PDT) + + + + + + | Component | Value | Ref Range | Performed | Pathologist | | | | | At | Signature | + + + + + + | Phosphorus | 5.7 (H)Comment: Testing | 2.3 - 4.8 mg/dL | [facility] | | | | performed at [facility];[address] | | LABORATORY | | | | [address];[place], [place] | | | | | | [address] | | | | + + + + + + + + | Specimen | + + | Blood | + + + + + + + | Performing | Address | City/State/Zipcode | Phone Number | | Organization | | | | + + + + + | [facility] | [address] | [place] [address] | [phone] | + + + + + Magnesium (08/27/2019 4:14 AM PDT) + + + + + + | Component | Value | Ref Range | Performed | Pathologist | | | | | At | Signature | + + + + + + | Magnesium | 2.8 (H)Comment: Testing | 1.7 - 2.4 mg/dL | [facility] | | | | performed at [facility];[address] | | LABORATORY | | | | [address];[place] | | | | | | [address] | | | | + + + + + + + + | Specimen | + + | Blood | + + + + + + + | Performing | Address | City/State/Zipcode | Phone Number | | Organization | | | | + + + + + | [facility] | [address] | [place] [address] | [phone] | + + + + + CBC [...] | | | | performed at [facility] | | | | | | [address];[place], [place] | | | | | | [address] | | | | + + + + + + + + | Specimen | + + | Blood | + + + + + + + | Performing | Address | City/State/Zipcode | Phone Number | | Organization | | | | + + + + + | [facility] | [address] | [place] [address] | [phone] | + + + + + Culture, [...] Special | Testing performed at | | [facility] | | | Requests | [facility];[address] | | LABORATORY | | | | [address];[place] [address] | | | | + + + + + + | RESULT | NO GROWTH 6 DAYS | | [facility] | | | | | | LABORATORY | | + + + + + + | RESULT | Testing performed at | | [facility] | | | | TCL, [address] [facility] | | LABORATORY | | | | [address], [place] | | | | | | [id number]: Testing | | | | | | performed at [facility], [facility] | | | | | | [address], [place] | | | | | | [address] | | | | + + + + + + + + | Specimen | + + | Blood - Peripheral | | blood specimen | | (specimen) | + + + + + + + | Performing | Address | City/State/Zipcode | Phone Number | | Organization | | | | + + + + + | [facility] | [address] | [place] [address] | [phone] | + + + + + Procalcitonin [...] | | | | | | at [facility];[address] | | | | | | Any;[place] [address] | | | | + + + + + + + + | Specimen | + + | Blood | + + + + + + + | Performing | Address | City/State/Zipcode | Phone Number | | Organization | | | | + + + + + | [facility] | [address] [facility] | [place] [address] | [phone] | + + + + + Lactic Acid (08/26/2019 9:29 PM PDT) + + + + + + | Component | Value | Ref Range | Performed | Pathologist | | | | | At | Signature | + + + + + + | Lactate, | 1.8Comment: Testing | 0.4 - 2.0 | [facility] | | | Serum | performed at [facility];888 | mmol/L | LABORATORY | | | | [address];[place] | | | | | | [address] | | | | + + + + + + + + | Specimen | + + | Blood | + + + + + + + | Performing | Address | City/State/Zipcode | Phone Number | | Organization | | | | + + + + + | [facility] | [address] | [place] [address] | [phone] | + + + + + Culture, [...] | | LABORATORY | | | | Blvd;[place] [address] | | | | + + + + + + | RESULT | NO GROWTH 6 DAYS | | [facility] | | | | | | LABORATORY | | + + + + + + | RESULT | Testing performed at | | [facility] | | | | TCL, [address] [facility] | | LABORATORY | | | | [place] | | | | | | [address]Urrjrlh: Testing | | | | | | performed at [facility], [address] | | | | | | [address] [place] | | | | | | [address] | | | | + + + [...] [facility] | [address] | [place] [address] | [phone] | + + + + + MRSA [...] | | | | performed at [facility];[address] | | LABORATORY | | | | [address];[place] | | | | | | [address] | | | | + + + [...] | [address] | [place] [address] | [phone] | + + + + + Basic [...] | | | | performed at [facility];[address] | | | | | | [address];[place] | | | | | | [address] | | | | + + + + + + + + | Specimen | + + | Blood | + + + + + + + | Performing | Address | City/State/Zipcode | Phone Number | | Organization | | | | + + + + + | [facility] | [address] | [place] [address] | [phone] | + + + + + Phosphorus (08/26/2019 8:31 PM PDT) + + + + + + | Component | Value | Ref Range | Performed | Pathologist | | | | | At | Signature | + + + + + + | Phosphorus | 6.9 (H)Comment: Testing | 2.3 - 4.8 mg/dL | [facility] | | | | performed at [facility] | | LABORATORY | | | | [address];[place], [place] | | | | | | [address] | | | | + + + + + + + + | Specimen | + + | Blood | + + + + + + + | Performing | Address | City/State/Zipcode | Phone Number | | Organization | | | | + + + + + | [facility] | [address] | [place] [address] | [phone] | + + + + + Magnesium (08/26/2019 8:31 PM PDT) + + + + + + | Component | Value | Ref Range | Performed | Pathologist | | | | | At | Signature | + + + + + + | Magnesium | 2.6 (H)Comment: Testing | 1.7 - 2.4 mg/dL | [facility] | | | | performed at [facility];[address] | | LABORATORY | | | | [address];[place] | | | | | | [address] | | | | + + + + + + + + | Specimen | + + | Blood | + + + + + + + | Performing | Address | City/State/Zipcode | Phone Number | | Organization | | | | + + + + + | [facility] | [address] | [place] [address] | [phone] | + + + + + CBC [...] LABORATORY | | | | performed at [facility];[address] | | | | | | [address];[place] | | | | | | [address] | | | | + + + + + + + + | Specimen | + + | Blood | + + + + + + + | Performing | Address | City/State/Zipcode | Phone Number | | Organization | | | | + + + + + | [facility] | [address] | [place] [address] | [phone] | + + + + + POC [...] | | | POC | performed at [facility];[address] | | LABORATORY | | | | [address];[place] | | | | | | [address] | | | | + + + + + + + + | Specimen | + + | | + + + + + + + | Performing | Address | City/State/Zipcode | Phone Number | | Organization | | | | + + + + + | [facility] | [address] | [place] [address] | [phone] | + + + + + POC [...] | | | POC | performed at [facility];888 | g/dL | LABORATORY | | | | [address];[place] | | | | | | [address] | | | | + + + + + + + + | Specimen | + + | | + + + + + + + | Performing | Address | City/State/Zipcode | Phone Number | | Organization | | | | + + + + + | [facility] | [address] | [place] [address] | [phone] | + + + + + Echo [...] + | Performing | Address | City/State[facility] | Phone Number | | Organization | [...] 14.6Comment: Testing | 11.6 - 15.5 | [facility] | | | POC | performed at [facility];888 | g/dL | LABORATORY | | | | [address];[place], [place] | | | | | | [address] | | | | + + + + + + + + | Specimen | + + | | + + + + + + + | Performing | Address | City/State/Zipcode | Phone Number | | Organization | | | | + + + + + | [facility] | [address] | [place] [address] | [phone] | + + + + + documented [...] DAILY PRN, Constipation, | | | Starting [facility] 08/26/19 at 2010, If | | [...] Units | | (Comment | | Starting [facility] 08/26/19 at 1710, | | PM [...]
--- OUTSIDE RECORDS SUMMARY | ~2020-04-05 | XMS | Encounter Summary ---
Demographics + + + | Address | [address] | | | [place] [address] | + + + | Home Phone [...] [place], [place] | | | | | [address] | | + + + + + | Lydia Palm | ECON | [place], [place] | | | | | [address] | | + + + + + | melidna METZ" | ECON | [place], [place] | | | [place] | | [address] | | + + + + + | Jose C Oconnor | ECON | [address] [place] | | | | | [place] | | | | | [address] | | + + + + + Care Team Providers + +------+ + | Care Key Attendant Name | Role | Phone | [...] renal | | 2019 | | MEDICAL SKIATOOK | PA-C [address] | disease on dialysis | | | | EMERGENCY CENTER | [place] [address] | (HCC) (Primary Dx); | | | | [address] | [phone] | Hyperkalemia; | | | | [place], [place] | | Generalized | | | | [address] | Sher Alex, | abdominal pain; | | | | [phone] | DO [address] | Ovarian mass | | | | | [place] [address] | | | | | | [phone] | | | | | | | [...] be sent through Care Everywhere.Abdominal Pain, Adult (Khmer)documented in this encounter Medications at Time of [...] | | | | | ONLY, -COMPUTER (459), | | | | | | story editor Rashel Polanco | | | | [...] DAWNA | | | | performed at [facility];[address] | | LABORATORY | | | | [address];[place] | | | | | | [address] | | | | + + + + + + + + | Specimen | + + | Blood | + + + + + + + | Performing | Address | City/State/Zipcode | Phone Number | | Organization | | | | + + + + + | [facility] | [address] | [place] [address] | [phone] | + + + + + Comprehensive [...] | | | | | performed at [facility];88 | | | | | | [facility];[place], [place] | | | | | | [address] | | | | + + + + + + + + | Specimen | + + | Blood | + + + + + + + | Performing | Address | City/State/Zipcode | Phone Number | | Organization | | | | + + + + + | [facility] | [address] | [place] [address] | [phone] | + + + + + CBC [...] | | | Absolute | performed at [facility];[address] | K/uL | LABORATORY | | | | [address];[place] | | | | | | [address] | | | | + + + + + + + + | Specimen | + + | Blood | + + + + + + + | Performing | Address | City/State/Zipcode | Phone Number | | Organization | | | | + + + + + | [facility] | [address] | [place] [address] | [phone] | + + + + + documented [...]
--- OUTSIDE RECORDS SUMMARY | ~2020-04-05 | XMS | Encounter Summary ---
Demographics + + + | Address | [address] | | | [place] [address] | + + + | Home Phone [...] [place], [place] | | | | | [address] | | + + + + + | Lydia Palm | ECON | [place], [place] | | | | | [address] | | + + + + + | melinda METZ" | ECON | [place], [place] | | | [place] | | [address] | | + + + + + | Jose C Oconnor | ECON | [address] | | | | | [place] | | | | | [address] | | + + + + + Care Team Providers + +------+ + | Care Aquatics Coordinator Name | Role | Phone | [...] + + | 08/11/ | Telephone | [facility] | Nidhi Whitaker, | Rx/Medication Pick | | 2019 | | VASCULAR SURGERY | RN | Up | | | | [address] | | | | | | [place] | | | | | | [address] | | | | | | [phone] | | | +--------+ + + + [...]
--- OUTSIDE RECORDS SUMMARY | ~2020-04-05 | XMS | Encounter Summary ---
Demographics + + + | Address | [address] | | | [place] [address] | + + + | Home Phone [...] [place], [place] | | | | | [address] | | + + + + + | Lydia Palm | ECON | [place], [place] | | | | | [address] | | + + + + + | melinda METZ" | ECON | [place], [place] | | | [place] | | [address] | | + + + + + | Jose C Oconnor | ECON | [address] | | | | | [place] | | | | | [address] | | + + + + + Care Team Providers + +------+ + | Care Therapy Technician Name | Role | Phone | [...] | daily thru | [address] | [place] [address] | | | | | February 23, | [place], [place] | Phone: | | | | | Peritonitis | [address] | [phone] | | | | | Procedures | Phone: | Fax: | | | | | [place] | [phone] | [phone] | | | | | [place], | Fax: | | | | | | [address] [place] | [phone] | | | | | | IV [...] + + | 02/18/ | Hospital | [facility] | Jeovanny Correa, | Peritonitis | | 2019 | Encounter | [facility] | Alonzo Jasso MD | associated with | | | | [address] [facility] | [address] | peritoneal dialysis, | | | | [place] | [place] [address] | initial encounter | | | | [address] | [phone] | (HCC) (Primary Dx) | | | | [phone] | | | +--------+ + + + [...] with peritoneal dialysis, initial encounter ([facility]) - Primary | + + documented [...]
--- OUTSIDE RECORDS SUMMARY | ~2020-04-05 | XMS | Encounter Summary ---
Demographics + + + | Address | [address] | | | [place] [address] | + + + | Home Phone [...] [place], [place] | | | | | [address] | | + + + + + | Lydia Palm | ECON | [place], [place] | | | | | [address] | | + + + + + | melinda METZ" | ECON | [place], [place] | | | reba | | [address] | | + + + + + | Jose C Oconnor | ECON | [place] | | | | | [place] | | | | | [address] | | + + + + + Care Team Providers + +------+ + | Care Allergist/Pediatric Pulmonologist Name | Role | Phone | + +------+ + | Juan F Whitley DO | PCP | | + +------+ + Encounter Details +--------+ + + + + | Date | Type | Department | Care Team | Description | +--------+ + + + + | 03/31/ | Emergency | [facility] | Ronald Hollins, | No problem, feared | | 2018 | | [facility]ENTER | [facility] [address] | complaint unfounded; | | | | EMERGENCY CENTER | [place] [address] | Encounter for | | | | [address] | [phone] | postoperative wound | | | | [place], [place] | | check | | | | [address] | | | | | | [phone] | | | +--------+ + + + [...]
[~2020-04-05 22:44] MED LIST changes: +RENVELA800 MG PO
--- OUTSIDE RECORDS SUMMARY | 2020-04-05 22:46 | XMS ---
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 Care History Medical/Surgical 08/23/2019 [facility] - PLEASE REVIEW PATIENT PDMP BEFORE PRESCRIBING NARCOTICS TO PATIENT- PHYSICIAN DISCRETION - PATIENT HAS A HX OF CHRONIC CONDITIONS PLEASE REFER PATIENT TO PCP OFFICE FOR PAIN MANAGEMENT. 08/23/2019 [facility] PATIENT- [place] ELIGIBLE PLEASE REFER PATIENT TO [facility] FOR NON EMERGENT MEDICAL NEEDS. [facility] CAN SEE PATIENTS SAME DAY FOR APTS IF PATIENT CALLS FIRST THING IN THE MORNING. 02/01/2019 [facility] - CHW RECEIVED CASE MANAGEMENT CONSULT- DUE TO ED UTILIZATION. - CHW HAS CONTACT PATIENT PCP OFFICE AND PATIENT HAS BEEN FOLLOWING UP WITH PCP. - CHW DISCUSSED THE ED UTILIZATION WITH [facility] AND WITH PATIENT. E.D. VISIT COUNT (12 MO.) [facility] 2 [facility]. TOTAL 6 NOTE: Visits indicate total known visits. ED/C VISIT TRACKING (12 MO.) 04/05/2020 22:45 [facility] TYPE: Emergency COMPLAINT: - VOMITING AND NAUSEA 11/05/2019 17:06 [facility] TYPE: Emergency DIAGNOSES: - Vascular Access Problem - Hemorrhage, not elsewhere classified - Hyperkalemia 09/03/2019 12:02 [facility] TYPE: Emergency DIAGNOSES: - Infection following a procedure, unspecified, init - Infection and inflammatory reaction due to other cardiac and - Arm Pain 08/22/2019 17:39 [facility] TYPE: Emergency COMPLAINT: - ABD PAIN, VOMITING DIAGNOSES: - Dependence on renal dialysis - Essential (primary) hypertension - Other detention (current) drug therapy - Unspecified abdominal pain [facility]2019 [facility] TYPE: Emergency DIAGNOSES: - Generalized abdominal pain - End stage renal disease - Abdominal Pain - Dependence on renal dialysis - Hyperkalemia - Other noninflammatory disorders of ovary, fallopian tube and 05/07/2019 16:26 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, implants and g - Essential (primary) hypertension - Anemia in chronic kidney disease - Infection and inflammatory reaction due to other cardiac and - End stage renal disease 08/26/2019 17:[facility] TYPE: Vascular Surgery DIAGNOSES: - Hyperkalemia - Other mechanical complication of surgically created arteriove - Other specified personal risk factors, not elsewhere classifi - End stage renal disease - Other disorders of phosphorus metabolism - Elevated white blood cell count, unspecified - Other complications of procedures, not elsewhere classified, - Other specified postprocedural states - Shock, unspecified - Anemia in chronic kidney disease - 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
[2020-04-05] MEDS ORDERED: CLONAZEPAM0.25 MG PO (23:07)
[2020-04-07] MEDS ORDERED: ONDANSETRON ODT8 MG PO (15:08)
[2020-04-07] MEDS ORDERED: NORCO 5-325 TA1 EACH PO (15:08)
== END 2020-04-06 03:15 | disposition home or self-care (01) ==
LOC: ED 22:44
DX: F41.9 Anxiety disorder, unspecified (principal); R10.9 Unspecified abdominal pain; I10 Essential (primary) hypertension; Z79.899 Other long term (current) drug therapy
CPT/HCPCS: 74176; 80053; 83690; 85025; 96374; 96375; 96376; 99284-25; J1170; J2060; J2405

== ENCOUNTER → 2020-05-11 | Emergency (ER) | payer OTHER ==
[~2020-05-11] VITALS: Ht 157.5 cm; Wt 96.6 kg
[~2020-05-11] MED LIST changes: +CALCIUM ACETAT667 M1 NG; +CITALOPRAM HBR20 MG PO; +CLONAZEPAM0.25 MG PO; +LORAZEPAM1 MG PO; +ONDANSETRON ODT8 MG PO
--- OUTSIDE RECORDS SUMMARY | ~2020-05-11 | XMS | Encounter Summary ---
Demographics + + + | Address | [address] | | | [place] [address] | + + + | Home Phone | | + + + | Preferred Language | Unknown | + + + | Marital Status | | + + + | Yazdanism Affiliation | Unknown | + + + | Race | Unknown | + + + | Ethnic Group | Unknown | + + + Author + + + | Author | [facility] | | | and [place] | + + + | Organization | [facility] | | | and [place] | + + + | Address | Unknown | + + + | Phone | Unavailable | + + + Support + + + + + | Name | Relationship | Address | Phone | + + + + + | Lyubov Smalls | ECON | [place], [place] | | | | | [address] | | + + + + + | Lydia Palm | ECON | [place], [place] | | | | | [address] | | + + + + + | melinda METZ" | ECON | [place], [place] | | | [place] | | [address] | | + + + + + | Jose C Oconnor | ECON | [place] | | | | | [place] | | | | | [address] | | + + + + + Care Team Providers + +------+ + | Care Metallic Yarn Slitting Machine Operator Name | Role | Phone | + +------+ + | Juan F Whitley DO | PCP | | + +------+ + Encounter Details +--------+ + + + + | Date | Type | Department | Care Team | Description | +--------+ + + + + | 03/09/ | Hospital | [facility] | Conversion | | | 2019 | Encounter | [facility] | Transaction, | | | | | CLINIC [address] | Provider Unknown | | | | | [place], [place] | [phone] | | | | | [address] | | | | | | [phone] | | | +--------+ + + + + Social History + +-------+ +--------+------+ | Tobacco Use | Types | Packs/Day | Years | Date | | | | | Used | | + +-------+ +--------+------+ | Never Smoker | | | | | + +-------+ +--------+------+ + +---+---+---+ | Smokeless Tobacco: | | | | | Never Used | | | | + +---+---+---+ + + +---------+ + | Alcohol Use | Drinks/Week | oz/Week | Comments | + + +---------+ + | No | | | | + + +---------+ + + + + | Sex Assigned at | Date Recorded | | | | + + + | Not on file | | + + + documented as of this encounter Last Filed Vital Signs + + + + + | Vital Sign | Reading | Time Taken | Comments | + + + + + | Blood Pressure | 114/69 | 03/09/2019 5:48 PM | | | | | PDT | | + + + + + | Pulse | 78 | 03/09/2019 5:48 PM | | | | | PDT | | + + + + + | Temperature | - | - | | + + + + + | Respiratory Rate | 16 | 03/09/2019 5:48 PM | | | | | PDT | | + + + + + | Oxygen Saturation | - | - | | + + + + + | Inhaled Oxygen | - | - | | | Concentration | | | | + + + + + | Weight | 83.4 kg (183 lb 13.8 | 03/09/2019 5:48 PM | | | | oz) | PDT | | + + + + + | Height | 157.5 cm (5' 2") | 03/09/2019 5:48 PM | | | | | PDT | | + + + + + | Body Mass Index | 33.63 | 03/09/2019 5:48 PM | | | | | PDT | | + + + + + documented in this encounter Medications at Time of Discharge + + + +---------+ + + | Medication | Sig | Dispensed | Refills | Start | End Date | | | | | | Date | | + + + +---------+ + + | omeprazole | Take 20 mg by mouth | | 0 | | | | (PRILOSEC) 20 mg | every morning | | | | | | capsule | (before breakfast). | | | | | + + + +---------+ + + | ciprofloxacin | take 1 tablet by | | 0 | 01/10/20 | | | (CIPRO) 500 mg | mouth once daily for | | | 19 | 9 | | tablet | 5 days | | | | | + + + +---------+ + + | furosemide (LASIX) | Take 20 mg by mouth | | 0 | | | | 20 mg tablet | 2 times daily. | | | | 9 | + + + +---------+ + + | | Take 1 tablet by | | 0 | | | | HYDROcodone-acetamin | mouth every 6 hours | | | | 9 | | ophen (NORCO) 5-325 | as needed for Pain. | | | | | | mg per tablet | | | | | | + + + +---------+ + + | lisinopril | Take 10 mg by mouth | | 0 | | | | (PRINIVIL, ZESTRIL) | 2 times daily. | | | | 9 | | 10 mg tablet | | | | | | + + + +---------+ + + | metroNIDAZOLE | take 1 tablet by | | 0 | 01/10/20 | | | (FLAGYL) 500 MG | mouth every 12 hours | | | 19 | 9 | | tablet | for 5 days | | | | | + + + +---------+ + + | ondansetron | Take 4 mg by mouth | | 0 | | | | (ZOFRAN ODT) 4 mg | every 8 hours as | | | | 9 | | disintegrating | needed for Nausea. | | | | | | tablet | | | | | | + + + +---------+ + + | traZODone | take 1 tablet by | | 0 | 12/31/19 | | | (DESYREL) 50 mg | mouth three times a | | | 19 | 9 | | tablet | day | | | | | + + + +---------+ + + documented as of this encounter Procedure Notes Conversion Transaction, Provider Unknown - 03/09/2019 5:34 PM PDTFormatting of this note m ight be different from the original. Pre-Procedure Instructions by Richard Alvarez, RN at 03/09/19 9764 Author: Richard Alvarez RN Service: Anesthesiology Author Type: Registered Rohan se Filed: 03/09/19 5988 Date of Service: 03/09/191733 Status: Signed Plan Rep: Richard Alvarez RN (Registered Nurse) Meets met 4 AHA standards. Hibiclens and MRSA teaching and instructions given to patient. O ld EKG in Snapflow. Labs completed 02/15/19 docume nted in this encounter Plan of Treatment Not on filedocumented as of this encounter Procedures + +--------+ + + + | Procedure Name | Priori | Date/Time | Associated Diagnosis | Comments | | | ty | | | | + +--------+ + + + | MRSA NAAT | STAT | 03/09/2019 | | Results for this | | | | 5:40 PM | | procedure are in the | | | | PDT | | results section. | + +--------+ + + + documented in this encounter Results MRSA NAAT (03/09/2019 5:40 PM PDT) + + | Specimen | + + | | + + + + + | Narrative | Performed At | + + + | [facility](NOSE) MRSA | EXTERNAL LAB | | PCR NEGATIVE Testing | | | performed at [facility];[address] [place] [address];[place] [address] | | + + + + +---------+ + + | Performing | Address | City/State/Zipcode | Phone Number | | Organization | | | | + +---------+ + + | EXTERNAL LAB | | | | + +---------+ + + documented in this encounter Visit Diagnoses Not on filedocumented in this encounter
--- OUTSIDE RECORDS SUMMARY | ~2020-05-11 | XMS | Encounter Summary ---
Demographics + + + | Address | [address] | | | [place] [address] | + + + | Home Phone | | + + + | Preferred Language | Unknown | + + + | Marital Status | | + + + | Presybeterian Affiliation | Unknown | + + + | Race | Unknown | + + + | Ethnic Group | Unknown | + + + Author + + + | Author | [facility] | | | and [place] | + + + | Organization | [facility] | | | and [place] | + + + | Address | Unknown | + + + | Phone | Unavailable | + + + Support + + + + + | Name | Relationship | Address | Phone | + + + + + | Lyubov Smalls | ECON | [place], [place] | | | | | [address] | | + + + + + | Lydia Palm | ECON | [place], [place] | | | | | [address] | | + + + + + | melinda METZ" | ECON | [place], [place] | | | [place] | | [address] | | + + + + + | Jose C Oconnor | ECON | [place] | | | | | [place] | | | | | [address] | | + + + + + Care Team Providers + +------+ + | Care Interior Design Professor Name | Role | Phone | + +------+ + | No, Physician | PCP | Unavailable | + +------+ + Reason for Visit +--------+--------+ + | Reason | Onset | Comments | | | Date | | +--------+--------+ + | Other | 08/24/ | | | | 2019 | | +--------+--------+ + Encounter Details +--------+ + + + + | Date | Type | Department | Care Team | Description | +--------+ + + + + | 08/24/ | Telephone | [facility] | Qasim Pederson MD | Other | | 2019 | | VASCULAR SURGERY | [address] | | | | | [address] [place] | [place] | | | | | [place] | [address] | | | | | [address] | | | | | | [phone] | | | +--------+ + + + + Social History + +-------+ +--------+------+ | Tobacco Use | Types | Packs/Day | Years | Date | | | | | Used | | + +-------+ +--------+------+ | Former Smoker | | 0.25 | 10 | | + +-------+ +--------+------+ + +---+---+---+ | Smokeless Tobacco: | | | | | Never Used | | | | + +---+---+---+ + + +---------+ + | Alcohol Use | Drinks/Week | oz/Week | Comments | + + +---------+ + | No | | | Alcoholic | | | | | Drinks/day: occ | + + +---------+ + + + + | Sex Assigned at | Date Recorded | | | | + + + | Not on file | | + + + documented as of this encounter Miscellaneous Notes Telephone Encounter - Samira Dixon RN - 08/24/2019 2:49 PM PDTCalled clinic back but they stated they had already spoke with Georgette. elephone Encounter - [place] - 08/24/2019 1:05 PM PDTTor i, is calling regarding Other and would like a call back. Additional Call Details: Requesting call from medical supervisor after patient appointment today. Please call her back at [phone]. If this is a symptom based call, was patient offered triage? Not Applicable If this is a symptom based call and you were unable to immediately transfer the call to a garfield sadler cheese production supervisor was caller made aware that if at any time she feels it is an emergency they sh ould call 911 or go to the nearest emergency room? not applicable documented in this encounter Plan of Treatment Not on filedocumented as of this encounter Visit Diagnoses Not on filedocumented in this encounter
--- OUTSIDE RECORDS SUMMARY | ~2020-05-11 | XMS | Encounter Summary ---
Demographics + + + | Address | [address] | | | [place] [address] | + + + | Home Phone | | + + + | Preferred Language | Unknown | + + + | Marital Status | | + + + | Gnosticist Affiliation | Unknown | + + + | Race | Unknown | + + + | Ethnic Group | Unknown | + + + Author + + + | Author | [facility] | | | and [place] | + + + | Organization | [facility] | | | and [place] | + + + | Address | Unknown | + + + | Phone | Unavailable | + + + Support + + + + + | Name | Relationship | Address | Phone | + + + + + | Lyubov Smalls | ECON | [place], [place] | | | | | [address] | | + + + + + | Lydia Palm | ECON | [place], [place] | | | | | [address] | | + + + + + | melinda METZ" | ECON | [place], [place] | | | reba | | [phone] | | + + + + + | Jose C Oconnor | ECON | [place] | | | | | [place] | | | | | [address] | | + + + + + Care Team Providers + +------+ + | Care Concrete Bucket Hooker Name | Role | Phone | + +------+ + | Juan F Whitley DO | PCP | | + +------+ + Encounter Details +--------+ + + + + | Date | Type | Department | Care Team | Description | +--------+ + + + + | 06/04/ | Hospital | [facility] | Sisi Batista MD | Abdominal pain, | | 2017 - | Encounter | [facility] | [address] | unspecified | | | | CARE FLOOR [address] | [place] [address] | location; Chest | | 06/06/ | | [address] | [phone] | pain, unspecified | | 2017 | | [place], [place] | | type; SBP | | | | [phone] | | (spontaneous | | | | [phone] | | bacterial | | | | | | peritonitis) ([facility]); | | | | | | Diffuse abdominal | | | | | | pain | +--------+ + + + + Social [...] + + + | Blood Pressure | 135/83 | 06/06/2017 11:09 AM | | | | | PDT | | + + + + + | Pulse | 95 | 06/06/2017 11:09 AM | | | | | PDT | | + + + + + | Temperature | 37.1 C (98.7 F) | 06/06/2017 11:09 AM | | | | | PDT | | + + + + + | Respiratory Rate | 18 | 06/06/2017 11:09 AM | | | | | PDT | | + + + + + | Oxygen Saturation | - | - | | + + + + + | Inhaled Oxygen | - | - | | | Concentration | | | | + + + + + | Weight | 88 kg (194 lb 0.2 | 06/06/2017 11:09 AM | | | | oz) | PDT | | + + + + + | Height | 157.5 cm (5' 2") | 06/06/2017 11:09 AM | | | | | PDT | | + + + + + | Body Mass Index | 35.49 | 06/06/2017 11:09 AM | | | | | PDT | | + + + + + documented in this encounter Discharge Summaries Jaxon Ko MD - 06/05/2017 5:40 PM PDTFormatting of this note might be different from e linda. Discharge Summaries by Jaxon Ko MD at 06/05/171739 Author: Jaxon Ko MD Service: Hospitalist Author Type: Physician Filed: 06/07/17 1208 Date of Service: 06/05/171739 Status: Signed Casino Accountant: Jaxon Ko MD (Physician) [facility] Service: Hospitalist Discharge Summary Date of Admission: 06/04/2017 Date of Discharge: 06/06/2017 Discharge Physician: Jaxon Ko MD Treatment Team: Consulting Physician: Santos Rey MD Consulting Physician: Linden Monte MD Admitting Provider: Sisi Batista MD Discharge Diagnoses: Principal Problem: Abdominal pain in PD patient Active Problems: ESRD on peritoneal dialysis (HCC) Hypokalemia Morbid obesity due to excess calories (HCC) Nausea with vomiting Acute gastroenteritis Hypoalbuminemia Resolved Problems: Diffuse abdominal pain Procedures: * No surgery found * Significant Diagnostic Studies: Acute Abdominal Series Result Date: 06/04/2017 1. No evidence of obstruction or perforation. F HISTORY OF PRESENTATION and HOSPITAL COURSE: Ramona Oconnor is a 37 y.o. female who presented with N/V and abdominal pain as well as hypokalemia,she is a PD catheter patient and dr.akoum haksins to complete kellex for 7 days and added oral potassium to her regimen she will need a repeat RFP as an outpatient which as been ordered. Patient was discharged in stable condition. Addressed all of their questions and covered wi th side affects of newly added medications. she was cleared per consulting services. Past Medical History Diagnosis Date Diverticulosis GERD (gastroesophageal reflux disease) Hyperphosphatemia 10/28/2015 Hypocalcemia 10/28/2015 Itching 10/28/2015 Metabolic acidosis 10/28/2015 Obesity Peritonitis associated with peritoneal dialysis (HCC) 01/24/2017 Uremia 10/28/2015 Past Surgical History Procedure Laterality Date PERITONEAL CATHETER INSERTION N/A 10/28/2015 Procedure: LAPAROSCOPIC - PERITONEAL DIALYSIS CATH INSERTION; Surgeon: Mundo Ramos MD; Lo cation: [facility]; Service: Vascular; Laterality: N/A; No Known Allergies Prescriptions Prior to Admission Medication Sig Dispense Refill Last Dose ALPRAZolam (XANAX) 0.5 MG tablet Take 0.5 mg by mouth nightly as needed for Sleep. @0930 at 1000 amLODIPine (NORVASC) 2.5 MG tablet Take 2.5 mg by mouth daily. 06/03/2017@1400 ergocalciferol (DRISDOL) 78504 UNITS capsule Take 50,000 Units by mouth once a week. 06/02/2017 gentamicin (GARAMYCIN) 0.1 % ointment Apply topically 3 (three) times daily. 15 g 1 LORazepam (ATIVAN) 1 MG tablet Take 1 mg by mouth every 8 (eight) hours as needed for A nxiety. 06/04/2017 omeprazole (PRILOSEC) 20 MG capsule Take 20 mg by mouth every morning before breakfast. 05/31/2017 promethazine (PHENERGAN) 25 MG tablet Take 25 mg by mouth every 6 (six) hours as needed for Nausea. 06/03/2017 sevelamer (RENVELA) 800 MG tablet Take 2 tablets by mouth 3 (three) times daily with me als. 180 tablet 1 06/01/2017 torsemide (DEMADEX) 20 MG tablet Take 20 mg by mouth daily. couple days ondansetron (ZOFRAN) 8 MG tablet Take 1 tablet by mouth every 8 (eight) hours as needed for Nausea. 30 tablet 11 Unknown DISCHARGE EXAM Vital Signs: BP 120/71 (BP Location: Right upper arm) | Pulse 70 | Temp 98.5 F (36.9 C) (Oral) | Resp 16 | Ht 1.575 m (5' 2") | Wt 89.7 kg (197 lb 12.8 oz) | SpO2 94% | ? N o | BMI 36.18 kg/m General appearance: alert, appears stated age, cooperative, no distress and moderately obes e Head: Normocephalic, without obvious abnormality, atraumatic Neck: no adenopathy, no carotid bruit, no JVD, supple, symmetrical, trachea midline and thy roid not enlarged, symmetric, no tenderness/mass/nodules Lungs: clear to auscultation bilaterally Heart: regular rate and rhythm, S1, S2 normal, no murmur, click, rub or gallop Abdomen: soft, non-tender; bowel sounds normal;Pd catheter Extremities: extremities normal, atraumatic, no cyanosis or edema Pulses: 2+ and symmetric Neurologic: Grossly normal AXOX3 DATA CBC: Lab Results Component Value Date WBC 11.47 (H) 06/06/2017 RBC 3.67 (L) 06/06/2017 HGB 10.6 (L) 06/06/2017 HCT 32.6 (L) 06/06/2017 MCV 88.9 06/06/2017 MCH 29.0 06/06/2017 MCHC 32.7 06/06/2017 RDW 40.7 06/06/2017 PLT 214 06/06/2017 MPV 8.1 06/06/2017 DIFFTYPE AUTOMATED 06/06/2017 CMP: Lab Results Component Value Date NA 136 06/06/2017 K 3.5 06/06/2017 CL 95 (L) 06/06/2017 CO2 29 06/06/2017 ANIONGAP 16 06/06/2017 GLUF 91 06/06/2017 BUN 40 (H) 06/06/2017 CREATININE 13.9 (H) 06/06/2017 BCR 3 06/04/2017 CA 7.7 (L) 06/06/2017 CA 6.1 (L) 10/29/2015 PROT 7.1 06/04/2017 ALB 2.4 (L) 06/06/2017 GLOB 4.4 06/04/2017 BILITOT 0.4 06/04/2017 ALP 70 06/04/2017 AST 11 06/04/2017 ALT 16 06/04/2017 EGFR 3 (L) 06/06/2017 Culture, Body Fluid [[id number]] Collected: 06/04/17 1506 Order Status: Completed Lab Status: Preliminary result Updated: 06/07/17 1004 Specimen: Body Fluid from Peritoneal Fluid Specimen Description PERITONEAL FLUID GRAM STAIN NO CELLS OR ORGANISMS SEEN CULTURE NO GROWTH 3 DAYS Cell Count, Body Fluid [[id number]] Collected: 06/04/17 1506 Order Status: Completed Lab Status: Final result Updated: 06/04/17 1621 Specimen: Body Fluid from Ascites Fluid FLUID TYPE PERITONEAL FLUID COLOR COLORLESS APPEARANCE CLEAR RBC'S <10,000 /mm3 TOTAL NUCLEATED CELLS 21 /mm3 NEUTROPHILS 19 % LYMPHOCYTES 29 % MONOCYTES/MACROPHAGES 52 % CELLS COUNTED 100 Comment: [place] [facility] [place] [address];[place] [address] Disposition: Home Condition: Stable Code Status: Full Code Discharge Instructions Renal function panel Standing Status: Future Standing Exp. Date: 06/05/18 Diet Renal Activity as Tolerated Call MD for: Temperature > 100.4F (38C) Call MD for: Persistant Nausea and Vomiting Call MD for: Severe Uncontrolled Pain Call MD for: Redness, Tenderness, or Signs of Infection (Pain, Swelling, Redness, Odor or Green/Yellow Discharge Around Incision Site) Call MD for: Difficulty Breathing, Headache or Visual Disturbances Call MD for: Persistant Dizziness or Light-Headedness Call MD for: Hives Call MD for: Extreme Fatigue Follow up: [facility] [address] [place] [address] Schedule an appointment as soon as possible for a visit in 1 week Santos Rey MD [address] [facility] [phone] Schedule an appointment as soon as possible for a visit in 2 weeks Medication List START taking these medications cephALEXin 500 MG capsule QTY: 14 capsule Refills: 0 Commonly known as: KEFLEX Take 1 capsule by mouth 2 (two) times daily for 7 days. potassium chloride SA 20 MEQ tablet QTY: 30 tablet Refills: 0 Commonly known as: K-DUR,KLOR-CON Take 1 tablet by mouth daily. CONTINUE taking these medications ALPRAZolam 0.5 MG tablet Refills: 0 Commonly known as: XANAX amLODIPine 2.5 MG tablet Refills: 0 Commonly known as: NORVASC ergocalciferol 31369 units capsule Refills: 0 Commonly known as: DRISDOL Notes to patient: RESUME HOME SCHEDULE gentamicin 0.1 % ointment QTY: 15 g Refills: 1 Commonly known as: GARAMYCIN Apply topically 3 (three) times daily. LORazepam 1 MG tablet Refills: 0 Commonly known as: ATIVAN omeprazole 20 MG capsule Refills: 0 Commonly known as: PRILOSEC ondansetron 8 MG tablet QTY: 30 tablet Refills: 11 Commonly known as: ZOFRAN Take 1 tablet by mouth every 8 (eight) hours as needed for Nausea. promethazine 25 MG tablet Refills: 0 Commonly known as: PHENERGAN sevelamer 800 MG tablet QTY: 180 tablet Refills: 1 Commonly known as: RENVELA Take 2 tablets by mouth 3 (three) times daily with meals. torsemide 20 MG tablet Refills: 0 Commonly known as: DEMADEX You might also be taking other medications not listed above. If you have questions about an y of your other medications, talk to the person who prescribed them or your Primary Care Pro vider. Where to Get Your Medications You can get these medications from any pharmacy Bring a paper prescription for each of these medications cephALEXin 500 MG capsule potassium chloride SA 20 MEQ tablet Discharge took over 30 minutes, to include final examination, discussion of admission, and preparation of prescriptions, instructions for on-going care, follow-up and documentation o f discharge summary. Jaxon Ko MD 06/06/2017 documented in this encou nter Medications at Time of Discharge + + + +---------+--------+ + | Medication | Sig | Dispensed | Refills | Start | End Date | | | | | | Date | | + + + +---------+--------+ + | omeprazole | Take 20 mg by mouth | | 0 | | | | (PRILOSEC) 20 mg | every morning | | | | | | capsule | (before breakfast). | | | | | + + + +---------+--------+ + | furosemide (LASIX) | Take 20 mg by mouth | | 0 | | | | 20 mg tablet | 2 times daily. | | | | 9 | + + + +---------+--------+ + | | Take 1 tablet by | | 0 | | | | HYDROcodone-acetamin | mouth every 6 hours | | | | 9 | | ophen (NORCO) 5-325 | as needed for Pain. | | | | | | mg per tablet | | | | | | + + + +---------+--------+ + | lisinopril | Take 10 mg by mouth | | 0 | | | | (PRINIVIL, ZESTRIL) | 2 times daily. | | | | 9 | | 10 mg tablet | | | | | | + + + +---------+--------+ + | ondansetron | Take 4 mg by mouth | | 0 | | | | (ZOFRAN ODT) 4 mg | every 8 hours as | | | | 9 | | disintegrating | needed for Nausea. | | | | | | tablet | | | | | | + + + +---------+--------+ + documented as of this encounter Progress Notes Conversion Transaction, Provider Unknown - 06/06/2017 1:34 PM PDTFormatting of this note m ight be different from the original. Nurse Progress Note by Alyce Gold RN at 06/06/171333 Author: Alyce Gold RN Service: (none) Author Type: Registered Nurse Filed: 06/06/171333 Date of Service: 06/06/171333 Status: Signed Casino Accountant: Alyce Gold RN (Registered Nurse) Pt discharged home with spouse. Given RX and instructions. Pt has no questions at this time . Linden Kincaid MD - 06/06/2017 9:25 AM PDTFormatting of this note might be different from th e original. Progress Notes by Linden Monte MD at 06/06/17924 Author: Linden Monte MD Service: Nephrology Author Type: Physician Filed: 06/13/171913 Date of Service: 06/06/17924 Status: Signed Casino Accountant: Linden Monte MD (Physician) [facility] Service: NEPHROLOGY PD/ Progress Note Ramona Oconnor 37 y.o. [id number] [id number] female [facility] Hospital Day: LOS: 2 days Patient with PMH reviewed as listed under Past Medical History admitted with abdominal pa in Nephrology consulted for evaluation and management of ESRD CHRONIC SEVERE ASSOCIATED WITH FLUID ELECTROLYTE IMBALANCES Assess need for Pd/uf SUBJECTIVE Patient seen and examined. Tolerated ccpd well SAYS FEEL better, abd pain improved DENIES CHEST PAIN, SOB, NAUSEA, VOMITING, FEVER Past Medical History Diagnosis Date Diverticulosis GERD (gastroesophageal reflux disease) Hyperphosphatemia 10/28/2015 Hypocalcemia 10/28/2015 Itching 10/28/2015 Metabolic acidosis 10/28/2015 Obesity Peritonitis associated with peritoneal dialysis (HCC) 01/24/2017 Uremia 10/28/2015 Past Surgical History Procedure Laterality Date PERITONEAL CATHETER INSERTION N/A 10/28/2015 Procedure: LAPAROSCOPIC - PERITONEAL DIALYSIS CATH INSERTION; Surgeon: Mundo Ramos MD; Lo cation: [facility]; Service: Vascular; Laterality: N/A; No family history on file. Social History Social History Marital status: Spouse name: N/A Number of children: N/A Years of education: N/A Occupational History Not on file. Social History Main Topics Smoking status: Former Smoker Packs/day: 0.25 Quit date: 10/10/2015 Smokeless tobacco: Never Used Alcohol use 0.0 oz/week Comment: occ Drug use: No Sexual activity: Yes Partners: Male Other Topics Concern Not on file Social History Narrative No narrative on file Scheduled Medications amLODIPine 2.5 mg Oral Daily cephALEXin 500 mg Oral BID [START ON 06/09/2017] ergocalciferol 50,000 Units Oral Weekly gentamicin Topical TID heparin (porcine) 5000 unit/0.5mL 5,000 Units Subcutaneous 2 times per day HYDROmorphone 1 mg Intravenous Once lidocaine buffered 1% 0.5 mL Intradermal Once metoclopramide 5 mg Intravenous Q6H ondansetron 8 mg Intravenous TID pantoprazole 40 mg Oral QAM AC sevelamer 1,600 mg Oral TID WC torsemide 20 mg Oral Daily Continuous Infusions PRN Medications acetaminophen OR acetaminophen, ALPRAZolam, HYDROmorphone OR HYDROmorphone, ondanse jill OR ondansetron, polyethylene glycol, potassium OR potassium OR potassium OR potassium chloride OR potassium chloride OR potassium chloride, potassium chlor ayleen OR potassium chloride OR potassium chloride, promethazine, zolpidem Allergy: No Known Allergies OBJECTIVE Vital Signs: BP 123/76 | Pulse 77 | Temp 98.2 F (36.8 C) (Oral) | Resp 16 | Ht 1.575 m (5' 2") | Wt 88 kg (194 lb 0.1 oz) | SpO2 97% | ? No | BMI 35.48 kg/m I&O Detailed Table: I/O last 3 completed shifts: In: 49493 [P.O.:1700; I.V.:2488; Other:95939] Out: 66280 [Other:03832] Weight change: 2.994 kg (6 lb 9.6 oz) Examination: APPEARANCE: The patient is lying in no apparent distress. VITALS: Reviewed as listed. EYES: Non-icteric sclera. ENT: No gross ear or nasal problems noted. LUNGS: Clear to auscultation bilaterally. HEART: S1, S2, no pericardial rub noted. ABDOMEN: Full, soft, no tenderness. Pd catheter in place EXTREMITIES: no pedal edema noted. SKIN: Warm to touch. No rash noted. NEUROLOGIC: No gross focal motor deficit noted, no Asterixis. PSYCH: The patient is alert and oriented x 3, mood and affect looks ok LABS: Recent Results (from the past 24 hour(s)) Potassium Collection Time: 06/05/17 4:22 PM Result Value Ref Range POTASSIUM 3.7 3.5 - 4.9 mmol/L CBC w/auto diff (reflex to manual) Collection Time: 06/06/17 5:07 AM Result Value Ref Range WBC 11.47 (H) 3.80 - 11.00 K/uL RBC 3.67 (L) 3.70 - 5.10 M/uL HGB 10.6 (L) 11.3 - 15.5 g/dL HCT 32.6 (L) 34.0 - 46.0 % MCV 88.9 80.0 - 100.0 fl MCH 29.0 27.0 - 34.0 pg MCHC 32.7 32.0 - 35.5 g/dL RDW SD 40.7 37 - 53 fl PLT 214 150 - 400 K/uL MPV 8.1 fl DIFF TYPE AUTOMATED NEUTROPHILS 80.49 % LYMPHOCYTES 11.69 % MONOCYTES 5.52 % EOSINOPHILS 1.90 % BASOPHILS 0.40 % NEUTROPHILS ABS 9.23 (H) 1.90 - 7.40 K/uL LYMPHOCYTES ABS 1.34 1.00 - 3.90 K/uL MONOCYTES ABS 0.63 0.00 - 0.80 K/uL EOSINOPHILS ABS 0.22 0.00 - 0.50 K/uL BASOPHILS ABS 0.05 0.00 - 0.10 K/uL Magnesium Collection Time: 06/06/17 5:07 AM Result Value Ref Range MAGNESIUM 2.6 (H) 1.7 - 2.4 mg/dL Renal function panel Collection Time: 06/06/17 5:07 AM Result Value Ref Range SODIUM 136 135 - 145 mmol/L POTASSIUM 3.5 3.5 - 4.9 mmol/L CHLORIDE 95 (L) 99 - 109 mmol/L CO2 29 23 - 32 mmol/L ANION GAP AGAP 16 5 - 20 mmol/L GLUCOSE 91 65 - 99 mg/dL BUN 40 (H) 8 - 25 mg/dL CREATININE 13.9 (H) 0.50 - 1.00 mg/dL CALCIUM 7.7 (L) 8.5 - 10.5 mg/dL Albumin 2.4 (L) 3.6 - 5.0 g/dL PHOSPHORUS 3.8 2.3 - 4.8 mg/dL EGFR 3 (L) >60 mL/min/1.73m2 Imaging Acute Abdominal Series Result Date: 06/04/2017 RAMONA OCONNOR 1980 XR ABDOMEN ACUTE SERIES 06/04/2017 1:54 PM INDICATION: Abdominal p ain COMPARISON: CT, 01/22/2017 TECHNIQUE: Abdominal series, 3 views, single AP view of the ch est, 2 views of the abdomen FINDINGS: The lungs are clear with no focal airspace consolidat ion. There is no free air. There are no air fluid levels. There are no dilated loops of bow el. There is no organomegaly. Severe right and mild left osteoarthritic spurring is present. There is mild osteoarthritic spurring of the acetabulum. 1. No evidence of obstruction or perforation. LEM LIST Principal Problem: Abdominal pain in PD patient Active Problems: ESRD on peritoneal dialysis (HCC) Hypokalemia Morbid obesity due to excess calories (HCC) Nausea with vomiting Acute gastroenteritis Hypoalbuminemia ASSESSMENT & PLAN ESRD ON PD tolearted pd/uf well Pd flow sheet reviewed Assess daily for need for pd Orders in the chart Fluid restriction 1.2 litres/24 hours Strict I & O Daily RFP Renal diet Daily weights will help with subsequent hd with uf Dose all meds per protocol for ESRD on pd ANEMIA in ESRD EPOGEN TO KEEP HGB 10-11 Lab Results Component Value Date HGB 10.6 (L) 06/06/2017 HGB 11.7 06/05/2017 HGB 14.4 06/04/2017 FERRITIN 56 10/27/2015 LABIRON 12 (L) 10/27/2015 HYPERTENSION WATCH BP CLOSELY DURING HOSPITALIZATION LOW NA DIET Will adjust BP meds according to BP readings BP Readings from Last 3 Encounters: 06/06/17 123/76 01/25/17 152/76 11/16/15 (!) 164/103 HYPERPHOSPHATEMIA LOW P DIET PO4 BINDERS Lab Results Component Value Date PHOS 3.8 06/06/2017 PHOS 5.4 (H) 01/25/2017 PHOS 5.9 (H) 01/24/2017 HYPOALBUMINEMIA INCREASE PROTEIN INTAKE Lab Results Component Value Date ALB 2.4 (L) 06/06/2017 ALB 2.7 (L) 06/04/2017 ALB 3.4 (L) 06/04/2017 [address]EMIA REPL[address] TO KEEP k GREATER THAN 3.8 On kcl Lab Results Component Value Date K 3.5 06/06/2017 K 3.7 06/05/2017 K 3.0 (L) 06/05/2017 . CASE DISCUSSED IN DETAIL WITH PATIENT/ care team, ANSWERS ALL QUESTIONS IN DETAIL, VERBALIZ ES UNDERSTANDING LINDEN MONTE MD 06/06/2017 [facility] Seen earlier and charting completed later Dictation software, OPENLANE, used which may contain error for similar sounding words even af ter review. Personal communication requested for any clarification. Portions of my notes may have been carried over for continuity of care. onversion Transa ction, Provider Unknown - 06/06/2017 9:16 AM PDT Case Management by Ryley Barker RN at 06/06/17915 Author: Ryley Barker RN Service: (none) Author Type: Registered Nurse Filed: 06/06/17916 Date of Service: 06/06/17915 Status: Signed Casino Accountant: Ryley Barker RN (Registered Nurse) Pt will discharge home with spouse and no needs from CM onver patric Transaction, Provider Unknown - 06/06/2017 6:00 AM PDT Nurse Progress Note by Carlyle Merchant RN at 06/06/17 06 Author: Carlyle Merchant RN Service: (none) Author Type: Registered Nurse Filed: 06/06/17 0757 Date of Service: 06/06/17599 Status: Signed Casino Accountant: Carlyle Merchant RN (Registered Nurse) Pt continues to c/o nausea, scheduled Zofran and Reglan given with minimal relief. PRN Phen ergan given x1. Pt c/o restlessness and inability to sleep. Xanax given x1. Pt receiving Per itoneal dialysis over night. Pt a/ox4, VSS, afebrile, denies pain. Pt resting in bed, family at bedside. No acute changes from initial assessment, will continue to monitor. CARLYLE MERCHANT RN onver patric Transaction, Provider Unknown - 06/05/2017 5:15 PM PDT Nurse Progress Note by Avinash Johnson RN at 06/05/17 6821 Author: Avinash Johnson RN Service: (none) Author Type: Registered Nurse Filed: 06/05/17 1805 Date of Service: 06/05/17 1715 Status: Signed Casino Accountant: Avinash Johnson RN (Registered Nurse) Pt A&O, VSS, completed PD this AM. Pt still having some abd pain, also complaining of nause a. medicted with schedule and PRN antiemetics, pt reported relief after meds given though na usea did come back after awhile. K+ replaced, Pt resting in bed currently, family at bedside . Pt has orders to discharge but pt stated she does not feel ready to go home. Dr. Ko not ified. Product Steward aslo aware of pt not leaving so will be coming to start PD. Will continue to monitor. Avinash Johnson RN onver patric Transaction, Provider Unknown - 06/05/2017 1:04 PM PDT Nurse Progress Note by Silviano Lake RN at 06/05/17 1304 Author: Silviano Lake RN Service: Nephrology Author Type: Registered Nurse Filed: 06/05/17 1306 Date of Service: 06/05/17 1304 Status: Signed Casino Accountant: Silviano Lake RN (Registered Nurse) Changed dressing on peritoneal catheter site as ordered by dr Rey. Pt tolerated well, no complications. Small abscess below dressing site covered with dressing as well, oozing small amount of bloody tinged puss. onver patric Transaction, Provider Unknown - 06/05/2017 11:41 AM PDT Case Management by Ryley Barker RN at 06/05/17 1141 Author: Ryley Barker RN Service: (none) Author Type: Registered Nurse Filed: 06/05/17 1147 Date of Service: 06/05/17 1141 Status: Signed Casino Accountant: Ryley Barker RN (Registered Nurse) 06/05/17 1100 Discharge Planning Evaluation Admitting Diagnosis gastroenteritis Readmission No Living Arrangements Spouse/significant other Support Systems Spouse/significant other Type of Residence Private residence Steps to enter 1 Bathrooms on 1st Floor 1-Full Independent with ADL's Yes Independent with Mobility Yes Home Care Services Yes Type of Home Care Services Other (Comment) (PD followed by Don Scott) Caregiver after Discharge No Mental Status Oriented Prior functional status independent with all needs Anticipated Discharge Plan Post Acute Care Needs None at this time Plan communicated to patient/family Yes Resources Financial concerns No Transportation issues No Patient/Family concerns No Prescription Plan Yes Previous home health equipment No Anticipated Disposition Facility Type Home Met with Pt and and discussed discharge planning, Pt is a 37 y.o., female from home with spouse, pt is independent with all needs, ADLs, and mobility. Pt receives PD and does this at home and her PD is followed by Don Scott. Pt has no needs, CM instructed pt t o contact with any new needs or concerns Patient's PCP is:[facility] Patient's insurance:medicare/[employer] Coverage concerns: no concerns Medication coverage/concerns: no concerns Community resources utilized / needed: none at this time Assistance in transportation: to transport Identification of any specific education / training: TBD Barriers to Discharge / Alternative housing needed: none Anticipated DCP: home RYLEY LECHUGA onver patric Armando, Provider Unknown - 06/05/2017 9:59 AM PDT Pharmacy Note by Naheed Lala RPH at 06/05/17958 Author: Naheed Lala RPH Service: Pharmacy Author Type: Pharmacist Filed: 06/05/17958 Date of Service: 06/05/17958 Status: Signed Casino Accountant: Naheed Lala RPH (Pharmacist) Peritoneal dialysis patient. No dosage adjustments made at this time. Recommend caution with Metoclopramide. Dosing: Renal Impairment CrCl <40 mL/minute: Administer 50% of normal dose. Not dialyzable (0% to 5%); supplemental dose is not necessary (Alea, 2007). Jaxon Glover MD - 06/05/2017 8:43 AM PDTFormatting of this note might be different from the origi nal. Progress Notes by Jaxon Ko MD at 06/05/17 0843 Author: Jaxon Ko MD Service: Hospitalist Author Type: Physician Filed: 06/05/17 7007 Date of Service: 06/05/17842 Status: Signed Casino Accountant: Jaxon Ko MD (Physician) [facility] Service: Hospitalist Progress Note Hospital Day: LOS: 1 day Post-Op Day: * No surgery found * SUBJECTIVE Patient Summary: refer to H&P and consult note for details Events Overnight: Patient seen and examined,denies CP or SOB improving abdominal pain ,less N/V ,stable VS, at bed side,addressed all questions. Scheduled Medications amLODIPine 2.5 mg Oral Daily cefTAZidime 1 g Intravenous Daily [START ON 06/09/2017] ergocalciferol 50,000 Units Oral Weekly gentamicin Topical TID heparin (porcine) 5000 unit/0.5mL 5,000 Units Subcutaneous 2 times per day HYDROmorphone 1 mg Intravenous Once lidocaine buffered 1% 0.5 mL Intradermal Once metoclopramide 5 mg Intravenous Q6H ondansetron 8 mg Intravenous TID pantoprazole 40 mg Oral QAM AC sevelamer 1,600 mg Oral TID WC torsemide 20 mg Oral Daily Continuous Infusions PRN Medications acetaminophen OR acetaminophen, ALPRAZolam, HYDROmorphone OR HYDROmorphone, ondanse jill OR ondansetron, ondansetron, polyethylene glycol, potassium OR potassium OR potassium OR potassium chloride OR potassium chloride OR potassium chloride, pr omethazine, zolpidem OBJECTIVE Vital Signs: BP 143/87 (BP Location: Right upper arm) | Pulse 76 | Temp 98.1 F (36.7 C) (Oral) | Resp 16 | Ht 1.575 m (5' 2") | Wt 87.5 kg (192 lb 14.4 oz) | SpO2 94% | ? N o | BMI 35.28 kg/m General appearance: alert, appears stated age, cooperative, fatigued, no distress and moder ately obese Head: Normocephalic, without obvious abnormality, atraumatic Neck: no adenopathy, no carotid bruit, no JVD, supple, symmetrical, trachea midline and thy roid not enlarged, symmetric, no tenderness/mass/nodules Lungs: clear to auscultation bilaterally,no wheezing Heart: regular rate and rhythm, S1, S2 normal, no murmur, click, rub or gallop Abdomen: soft, non-tender; bowel sounds normal; no masses, no organomegaly Extremities: extremities normal, atraumatic, no cyanosis or edema Pulses: 2+ and symmetric Neurologic: Grossly normal AXOX3,gait deferred DATA CBC: Lab Results Component Value Date WBC 13.43 (H) 06/05/2017 RBC 4.06 06/05/2017 HGB 11.7 06/05/2017 HCT 36.3 06/05/2017 MCV 89.4 06/05/2017 MCH 28.8 06/05/2017 MCHC 32.2 06/05/2017 RDW 42.0 06/05/2017 PLT 250 06/05/2017 MPV 8.5 06/05/2017 DIFFTYPE AUTOMATED 06/05/2017 CMP: Lab Results Component Value Date NA 138 06/04/2017 K 3.0 (L) 06/05/2017 CL 96 (L) 06/04/2017 CO2 28 06/04/2017 ANIONGAP 18 06/04/2017 GLUF 100 (H) 06/04/2017 BUN 53 (H) 06/04/2017 CREATININE 16.7 (H) 06/04/2017 BCR 3 06/04/2017 CA 8.2 (L) 06/04/2017 CA 6.1 (L) 10/29/2015 PROT 7.1 06/04/2017 ALB 2.7 (L) 06/04/2017 GLOB 4.4 06/04/2017 BILITOT 0.4 06/04/2017 ALP 70 06/04/2017 AST 11 06/04/2017 ALT 16 06/04/2017 EGFR 3 (L) 06/04/2017 Acute Abdominal Series Result Date: 06/04/2017 1. No evidence of obstruction or perforation. LEM LIST Principal Problem: Acute gastroenteritis Active Problems: ESRD on peritoneal dialysis (HCC) Hypokalemia Morbid obesity due to excess calories (HCC) Nausea with vomiting ASSESSMENT & PLAN Abdominal pain probably related PD catheter no cells are seen on PD fluid yet,continue abx as per nephrology rec Chest pain this has resolved Hypokalemia being repleted as per nephrology recc End-stage renal disease on peritoneal dialysis as per Dr. Rey. DVT prophylaxis HSC GI px PPI Disposition: Admitted Code Status: Full Code Jaxon Ko MD 06/05/2017 onversion Transaction, Provider Unknown - 06/05/2017 6:34 AM PDTFormatting of this note might be different from th e original. Nurse Progress Note by Drea Mckeon RN at 06/05/17633 Author: Drea Mckeon RN Service: (none) Author Type: Registered Nurse Filed: 06/05/17636 Date of Service: 06/05/17633 Status: Signed Casino Accountant: Drea Mckeon RN (Registered Nurse) Pt had one episode of emesis, and C/O pain through night. Medicated for pain with overall g ood relief. Pt's dialysis ran through shift. No acute events to note at this time. Family at bedside. Will pass report to oncoming RN. Drea Mckeon RN onver patric Transaction, Provider Unknown - 06/04/2017 6:52 PM PDT Nurse Progress Note by Avinash Johnson RN at 06/04/171851 Author: Avinash Johnson RN Service: (none) Author Type: Registered Nurse Filed: 06/04/171854 Date of Service: 06/04/171851 Status: Signed Casino Accountant: Avinash Johnson RN (Registered Nurse) Pt admitted from ED around 1700, pt dined abd pain ad the time of arrival. Later pt did com plained of abd pain 7/10 and nausea. Medicated per JAN. Pt pain 3/10 now. Pt resting in bed. Dialysis nurse called and will start PD later this evening. Will continue to monitor. Chri andree Johnson RN onver patric Transaction, Provider Unknown - 06/04/2017 6:04 PM PDT Pharmacy Note by Sheyla South RPH at 06/04/171803 Author: Sheyla South RPH Service: Pharmacy Author Type: Pharmacist Filed: 06/04/171803 Date of Service: 06/04/171803 Status: Signed Casino Accountant: Sheyla South RPH (Pharmacist) Renal Dosing Monitoring: Ramona Oconnor 37 y.o. female Pharmacy dosing for renal function per Dr. Batista Estimated Creatinine Clearance: 4.8 mL/min (by C-G formula based on SCr of 16 mg/dL). -peritoneal dialysis patient Pharmacy will continue monitoring patient for appropriate dosing per renal function. 06/04/2017 6:03 PM Pharmacist: SHEYLA SOUTH docume nted in this encounter H&P Notes Sisi Batista MD - 06/04/2017 4:17 PM PDT H&P by Sisi Batista MD at 06/04/171616 Author: Sisi Batista MD Service: Hospitalist Author Type: Physician Filed: 06/04/17 171 Date of Service: 06/04/171616 Status: Signed Casino Accountant: Sisi Batista MD (Physician) Admission History & Physical Date of Admission: 06/04/2017 CHIEF COMPLAINT: Nausea and vomiting, chest pain from last 2 days HISTORY OF PRESENT ILLNESS The patient is a 37 y.o. female with significant past medical history of end-stage renal d isease on peritoneal dialysis came to emergency department complaining of nausea vomiting no t able to keep anything down since yesterday and whatever she tried to eat and drink throws up, feeling weak, dehydrated and tried Zofran without any relief of symptoms. Review of system was positive for chest pain 5-6 out of 10 at upper chest diffusely without any radiation to arm back neck and precipitated with vomiting. Patient denied any sick contact, no fever or chills, no shortness of breath, no diarrhea, n o abdominal pain and 12 point review of system was negative except as mentioned above Past Medical History Diagnosis Date Diverticulosis GERD (gastroesophageal reflux disease) Hyperphosphatemia 10/28/2015 Hypocalcemia 10/28/2015 Itching 10/28/2015 Metabolic acidosis 10/28/2015 Obesity Peritonitis associated with peritoneal dialysis (HCC) 01/24/2017 Uremia 10/28/2015 Past Surgical History Procedure Laterality Date PERITONEAL CATHETER INSERTION N/A 10/28/2015 Procedure: LAPAROSCOPIC - PERITONEAL DIALYSIS CATH INSERTION; Surgeon: Mundo Ramos MD; Lo cation: [facility]; Service: Vascular; Laterality: N/A; (Not in a hospital admission) No Known Allergies No family history on file. Social History Social History Marital status: Spouse name: N/A Number of children: N/A Years of education: N/A Occupational History Not on file. Social History Main Topics Smoking status: Former Smoker Packs/day: 0.25 Quit date: 10/10/2015 Smokeless tobacco: Never Used Alcohol use 0.0 oz/week Comment: occ Drug use: No Sexual activity: Yes Partners: Male Other Topics Concern Not on file Social History Narrative No narrative on file Physical Exam: BP (!) 146/99 | Pulse 90 | Temp 97.8 F (36.6 C) (Oral) | Resp 16 | SpO2 94% General Appearance: Moderate distress. HEENT: Normocephalic, atraumatic, o/p clear,dry mucus membrane NECK: is supple with no carotid bruit CHEST:Lungs clear to auscultation with no wheezing, No rales or rhonchi HEART:Regular rate and rhythm without murmur, No gallop or rubs ABDOMEN:Bowel sound is normoactive, abdomen is soft, non-tender non-distended ,no mass and no CVA tenderness, PD catheter site intact EXTREMITIES:No lower extermity edema, No clubbing or cyanosis bilaterally NEURO: Mental status intact, Cranial Nerves 2-12 intact, Gait normal, Reflexes normal and s ymmetric, Muscle strength good bilaterally, Sensation grossly intact. and Alert and Oriented , promotions firm accounts manager are grossly intact. SKIN: No bruises, rashes, lesions Psychiatric: Has a dysphoric mood and affect. Behavior is normal. Judgment normal. No intake/output data recorded. DATA CBC: Lab Results Component Value Date WBC 16.99 (H) 06/04/2017 RBC 5.04 06/04/2017 HGB 14.4 06/04/2017 HCT 43.0 06/04/2017 MCV 85.4 06/04/2017 MCH 28.5 06/04/2017 MCHC 33.4 06/04/2017 RDW 42.0 06/04/2017 PLT 350 06/04/2017 MPV 8.0 06/04/2017 DIFFTYPE AUTOMATED 06/04/2017 CMP: Lab Results Component Value Date NA 136 06/04/2017 K 3.2 (L) 06/04/2017 CL 94 (L) 06/04/2017 CO2 27 06/04/2017 ANIONGAP 18 06/04/2017 GLUF 134 (H) 06/04/2017 BUN 53 (H) 06/04/2017 CREATININE 16 (H) 06/04/2017 BCR 3 06/04/2017 CA 9.2 06/04/2017 CA 6.1 (L) 10/29/2015 PROT 8.7 (H) 06/04/2017 ALB 3.4 (L) 06/04/2017 GLOB 5.3 (H) 06/04/2017 BILITOT 0.5 06/04/2017 ALP 90 06/04/2017 AST 9 (L) 06/04/2017 ALT 15 06/04/2017 EGFR 3 (L) 06/04/2017 Albumin: Lab Results Component Value Date ALB 3.4 (L) 06/04/2017 Magnesium: Lab Results Component Value Date MG 3.5 (H) 01/25/2017 Phosphorus: Lab Results Component Value Date PHOS 5.4 (H) 01/25/2017 PT/INR: Lab Results Component Value Date INR 1.0 10/26/2015 Troponin: No results found for: TROPONINI Last 3 Troponin: No results found for: TROPONINI TSH: Lab Results Component Value Date TSH 7.36 (H) 01/23/2017 TSH 3.40 10/27/2015 PROBLEM LIST Principal Problem: Acute gastroenteritis Active Problems: ESRD on peritoneal dialysis (HCC) Hypokalemia Morbid obesity due to excess calories (HCC) Nausea with vomiting ASSESSMENT & PLAN Acute gastroenteritis likely viral Plan start the patient on Zofran 8 mg every 8 hours, Reglan 5 mg every 6 hours Chest pain likely precipitated by ongoing nausea vomiting and just likely cardiac Plan check troponin every 4 hour 3 times if negative no need to do any further workup Hypokalemia being repleted End-stage renal disease on peritoneal dialysis Plan Dr. Rye from nephrology service has been consulted and case discussed with him, fur ther management per him DVT prophylaxis on heparin I spent more than 55 minutes Disposition: floor Code Status: Prior Primary Care Physician: [facility] SISI BATISTA MD 06/04/2017 documented in this en counter Procedure Notes Santos Rey MD - 06/05/2017 9:11 AM PDT Procedures by Santos Rey MD at 06/05/17 0911 Author: Santos Rey MD Service: Nephrology Author Type: Physician Filed: 06/05/172011 Date of Service: 06/05/17910 Status: Signed Casino Accountant: Santos Rey MD (Physician) Procedure Orders: 1. Peritoneal Dialysis ([facility]) [[id number]] ordered by Santos Rey MD at 06/04/17 1831 The patient is seen & examined during dialysis. she says that she feels 'better' today. sh e denies any cp, sob, abd pain, n/v at this time. The following portions of the patient's history were reviewed and updated as appropriate: l aboratory data, allergies, current medications, and problem list. P.E. BP 168/89 (BP Location: Right upper arm) | Pulse 91 | Temp 98.6 F (37 C) (Oral) | Re sp 18 | Ht 1.575 m (5' 2") | Wt 87.5 kg (192 lb 14.4 oz) | SpO2 97% | ? No | BMI 35.28 kg/m General appearance: Pleasant, not in acute distress. Lungs: Good A/E to auscultation bilaterally. There are no wheezes. Heart: Regular rate and rhythm without any rub, gallop. no murmur. Abdominal exam: Soft and nontender with normal bowel sounds. Extremities: Warm to touch with no leg edema. There is no cyanosis. Neurological: Awake, alert, and oriented to time, place, and person. Normal gross motor po wer. There is no asterixis. Access: PD site is benign. Lab Results Component Value Date BUN 53 (H) 06/04/2017 CREATININE 16.7 (H) 06/04/2017 EGFR 3 (L) 06/04/2017 NA 138 06/04/2017 K 3.0 (L) 06/05/2017 CL 96 (L) 06/04/2017 CO2 28 06/04/2017 CA 8.2 (L) 06/04/2017 PHOS 5.4 (H) 01/25/2017 MG 3.0 (H) 06/05/2017 ALB 2.7 (L) 06/04/2017 HGB 11.7 06/05/2017 Assessment: Ms. Oconnor is a 37 y.o. female patient with abdominal pain from recent air infusion into h er PD catheter. Exam & labs not consistent with peritonitis. This could be an acute gastroenteritis. hypoK hypoalb Complications identified during her dialysis treatment: none. Recommendations: Use low concentration Dianeal as ordered UF as tolerated no Epo today Prot suppl stressed Next dialysis treatment per the submitted pre-arana orders. She is willing to try oral potassium I will order a 20 mEq PO dose x1 Repeat K level late afternoon as STAT F/U: I was called back in: She has a superficial infection of the skin; but a small abscess just popped open diagonally to the right lower quadrant Start Keflex 500 mg PO BID x7 days, as of now SANTOS REY MD documented in thi s encounter Consult Notes Santos Rey MD - 06/04/2017 6:05 PM PDT Consults by Santos Rey MD at 06/04/171804 Author: Santos Rey MD Service: Nephrology Author Type: Physician Filed: 06/05/172007 Date of Service: 06/04/171804 Status: Signed Casino Accountant: Santos Rey MD (Physician) Consult Orders: 1. Consult to Nephrology [[id number]] ordered by Sisi Batista MD at 06/04/17 1616 Hospital Problem List: Principal Problem: Acute gastroenteritis Active Problems: ESRD on peritoneal dialysis (HCC) Hypokalemia Morbid obesity due to excess calories (HCC) Nausea with vomiting I was asked by the admitting team to see Ms. Oconnor in consult today. As the admitting/con sulting team is familiar with her case, I will not state her past history in detail. Briefly , she is a 37 y.o. female patient with history as delineated in the Past Medical & Surgical History sections. She was admitted with intractable abd pain, nausea & vomiting. I was called in to evaluate her for opinion on urgent dialysis need. She presented with the above. She had an infusion in her PD cath 3 days ptp, by mistake. Whitney s been having the above sxs since. 2 visits to the ED. Flat plate did show the significant a ir under the diaphragm. But today, none seen. History & ROS obtained from : patient, at bedside, chart review. The patient has hi story of . She says that she feels 'fair ' now. No history of blurred vision tinnitus, head ache, fever, chills, or cough. No nausea, vomiting, abdominal pain, diarrhea, melena, or he matochezia. No chest pain, palpitation, dizziness, loss of consciousness, orthopnea, paroxy smal nocturnal dyspnea, or leg edema. No dysuria, incontinence, or symptoms of UTI. She ma kes trivial urine volumes. The following portions of the patient's history were reviewed and updated as appropriate: a llergies, current medications, past medical history, past social history, past surgical hist ory, family history and problem list. I also reviewed with her preadmission records; these w ere very informative. ROS: As in History of Present Illness above & Assessment below. All the twelve systems were reviewed and were otherwise negative. amLODIPine 2.5 mg Oral Daily cefTAZidime 1 g Intravenous Daily [START ON 06/09/2017] ergocalciferol 50,000 Units Oral Weekly gentamicin Topical TID heparin (porcine) 5000 unit/0.5mL 5,000 Units Subcutaneous 2 times per day HYDROmorphone 1 mg Intravenous Once lidocaine buffered 1% 0.5 mL Intradermal Once metoclopramide 5 mg Intravenous Q6H ondansetron 8 mg Intravenous TID [START ON 06/05/2017] pantoprazole 40 mg Oral QAM AC sevelamer 1,600 mg Oral TID WC torsemide 20 mg Oral Daily No intake/output data recorded. I/O this shift: In: 500 [IV Piggyback:500] Out: 20 [Other:20] P.E. BP 162/90 (BP Location: Right upper arm) | Pulse 66 | Temp 98.2 F (36.8 C) (Oral) | Resp 14 | Ht 1.575 m (5' 2") | Wt 84.5 kg (186 lb 4.8 oz) | SpO2 95% | ? No | BMI 34.07 kg/m General appearance: Pleasant, not in acute distress. Neck: Supple without tracheal deviation or jugular venous distension. Head and ENT: Head is atraumatic. The oropharynx is without erythema or thrush. Eyes: Anicteric. The extraocular muscle movements are normal. Lungs: Clear to auscultation bilaterally. There are no wheezes. Heart: Regular rate and rhythm without any rub, gallop. no murmur. Abdominal exam: Benign. Soft and nontender with normal bowel sounds. Musculoskeletal: No costovertebral angle tenderness bilaterally. Extremities: Warm to touch with no leg edema. There is no cyanosis. Skin: There are no rashes, petechiae, or ecchymosis. Neurological: Awake, alert, and oriented to time, place, and person. Normal gross motor po wer. There is no asterixis. Psychiatric: The patient s behavior is normal. Judgment and thought content are normal. Lab Results Component Value Date BUN 53 (H) 06/04/2017 CREATININE 16 (H) 06/04/2017 EGFR 3 (L) 06/04/2017 NA 136 06/04/2017 K 3.2 (L) 06/04/2017 CL 94 (L) 06/04/2017 CO2 27 06/04/2017 CA 9.2 06/04/2017 PHOS 5.4 (H) 01/25/2017 MG 3.5 (H) 01/25/2017 ALB 3.4 (L) 06/04/2017 HGB 14.4 06/04/2017 Assessment: Ms. Oconnor is a 37 y.o. female patient with abdominal pain from recent air infusion into h er PD catheter. Exam & labs not consistent with peritonitis really. RENAL FUNCTION: Minimal RKF (few cc's of urine a day only) BLOOD PRESSURE: Mildly up for her now ELECTROLYTES: abnormal Sodium: ok Potassium: Mildly low Calcium: ok Acid/Base: ok ANEMIA: None now ALBUMIN: low URINALYSIS: To be checked VOLUME STATUS: Depleted at this time I discussed today with Ms. Oconnor the meaning of her abd pain and the interaction of that with her PD. Recommendations: 1. Send off PD fluid for cell count, GS & Cx 2. No need for Abx yet 3. There is an indication for PRESSURE CONTROL SUPERVISOR for this evening. 4. no IVF need. 5. K suppl as ordered 6. Send rU/A when possible 7. 8. Strict I/O & daily weights. 9. Dose all of her meds to her current daily PD 10. Continue to avoid all kinds of nephrotoxins as possible, but she may have a contrast CT of the abd/pelvis if indicated. 11. Target euvolumia with a MAP>75 mmHg as possible. 12. Given her tendency for anasarca: Encourage adequate intake & close dietitian F/U. Encou rage ambulation safely. Encourage the adequate use of an incentive spirometer. F/U: Also seen and examined during dialysis. Tolerating it well. Access: no issues. UF: to a minimum & as tolerated. Next dialysis: daily PD. I discussed with the admitting team the case at the time of this encounter. I spent 70 total minutes today in interviewing & examining the patient, reviewing & updatin g the patient's chart, formulating a plan, in addition to patient education and discussions with the primary/consulting team. Thank you Dr Batista for the opportunity to see this patient in consult today. Please do not hesitate to call me at any time with questions or concerns. SANTOS REY MD documented in thi s encounter ED Notes Conversion Transaction, Provider Unknown - 06/04/2017 4:53 PM PDTFormatting of this note m ight be different from the original. ED Notes by Shaunna Sy RN at 06/04/171652 Author: Shaunna Sy RN Service: (none) Author Type: Registered Nurse Filed: 06/04/171652 Date of Service: 06/04/171652 Status: Signed Casino Accountant: Shaunna Sy RN (Registered Nurse) at bedside. Joshi. Shaunna Sy RN 06/04/171652 onver patric Transaction, Provider Unknown - 06/04/2017 3:52 PM PDT ED Notes by Shaunna Sy RN at 06/04/17 155 Author: Shaunna Sy RN Service: (none) Author Type: Registered Nurse Filed: 06/04/17 155 Date of Service: 06/04/171551 Status: Signed Casino Accountant: Shaunna Sy RN (Registered Nurse) Per MICHELLE Woodardchronometer assembler 20 mls fluid was taken off of the abd for samples, plan to take the rest of the fluid off tonight as usual. Shaunna Sy RN 06/04/171552 onver patric Transaction, Provider Unknown - 06/04/2017 3:34 PM PDT ED Notes by Mary Alice Malhotra RN at 06/04/17 153 Author: Mary Alice Malhotra RN Service: (none) Author Type: Registered Nurse Filed: 06/04/171533 Date of Service: 06/04/171533 Status: Signed Casino Accountant: Mary Alice Malhotra RN (Registered Nurse) Dialysis nurse at for fluids and sent to lab Mary Alice Malhotra RN 06/04/171533 onver patric Transaction, Provider Unknown - 06/04/2017 3:30 PM PDT ED Notes by Shaunna Sy RN at 06/04/17 153 Author: Shaunna Sy RN Service: (none) Author Type: Registered Nurse Filed: 06/04/171530 Date of Service: 06/04/171529 Status: Signed Casino Accountant: Shaunna Sy RN (Registered Nurse) diaysis nurse at bedside. Shaunna Sy RN 06/04/171530 onver patric Transaction, Provider Unknown - 06/04/2017 2:05 PM PDT ED Notes by Shaunna Sy RN at 06/04/17 1405 Author: Shaunna Sy RN Service: (none) Author Type: Registered Nurse Filed: 06/04/17 1406 Date of Service: 06/04/17 140 Status: Signed Casino Accountant: Shaunna Sy RN (Registered Nurse) dialysis nurse coming at 1430. Shaunna Sy RN 06/04/17 1406 onver patric Transaction, Provider Unknown - 06/04/2017 11:49 AM PDT ED Notes by Mary Alice Malhotra RN at 06/04/17 1149 Author: Mary Alice Malhotra RN Service: (none) Author Type: Registered Nurse Filed: 06/04/17 1149 Date of Service: 06/04/17 114 Status: Signed Casino Accountant: Mary Alice Malhotra RN (Registered Nurse) MD at bedside. Mary Alice Malhotra RN 06/04/17 1149 Irvin Mina MD - 06/04/2017 11:48 AM PDTFormatting of this note might be different from the orig inal. ED Provider Notes by Irvin Mujica MD at 06/04/17 1148 Author: Irvin Mujica MD Service: (none) Author Type: Physician Filed: 06/04/17 1733 Date of Service: 06/04/17 1148 Status: Signed Casino Accountant: Irvin Mujica MD (Physician) [facility] Department of Emergency Medicine 11:48 AM History of Present Illness Patient Identification Ramona Oconnor is a 37 y.o. female. Patient information was obtained from patient and spouse/partner. History/Exam limitations: none. Patient presented to the Emergency Department by: Car Chief Complaint Chief Complaint Patient presents with Referral mark sending a patient. Emesis Nausea Chest Pain 37 y.o. female presenting with a chief complaint of chest pain. Onset of symptoms was 4 day s ago with a fluctuating course since that time. She states that she is having 8/10 intensit y chest pain and abdominal pain. She states that it is sharp in nature. Patient is a periton eal dialysis patient and has been doing this home. She states that her injected a la rge amount of air in the abdomen a few days ago. Patient was seen in [place] for her sympt oms and was given anxiety medication as well as some medication for the abdomen. She states that her symptoms were somewhat improved yesterday but came back today. The patient also com plains of SOB, nausea, vomiting, body aches, constipation, abd pain. The patient denies and y fever, blood in stool, dysuria, diarrhea. Care prior to arrival consisted of Nausea medica tion . PCP: [facility] Past Medical History Diagnosis Date Diverticulosis GERD (gastroesophageal reflux disease) Hyperphosphatemia 10/28/2015 Hypocalcemia 10/28/2015 Itching 10/28/2015 Metabolic acidosis 10/28/2015 Obesity Peritonitis associated with peritoneal dialysis (HCC) 01/24/2017 Uremia 10/28/2015 Past Surgical History Procedure Laterality Date PERITONEAL CATHETER INSERTION N/A 10/28/2015 Procedure: LAPAROSCOPIC - PERITONEAL DIALYSIS CATH INSERTION; Surgeon: Mundo Ramos MD; Lo cation: [facility]; Service: Vascular; Laterality: N/A; Prior to Admission medications Medication Sig Start Date End Date Taking? Authorizing Provider ALPRAZolam (XANAX) 0.5 MG tablet Take 0.5 mg by mouth nightly as needed for Sleep. Yes Hi storical Provider amLODIPine (NORVASC) 2.5 MG tablet Take 2.5 mg by mouth daily. Historical Provider ergocalciferol (DRISDOL) 40087 UNITS capsule Take 50,000 Units by mouth once a week. His torical Provider gentamicin (GARAMYCIN) 0.1 % ointment Apply topically 3 (three) times daily. 01/25/17 Yrn Ba MD omeprazole (PRILOSEC) 20 MG capsule Take 20 mg by mouth every morning before breakfast. Historical Provider ondansetron (ZOFRAN) 8 MG tablet Take 1 tablet by mouth every 8 (eight) hours as needed for Nausea. 01/25/17 Shad Ba MD sevelamer (RENVELA) 800 MG tablet Take 2 tablets by mouth 3 (three) times daily with meals. 01/25/17 01/25/18 Shad Ba MD torsemide (DEMADEX) 20 MG tablet Take 20 mg by mouth daily. Historical Provider No Known Allergies Social History Social History Marital status: Spouse name: N/A Number of children: N/A Years of education: N/A Occupational History Not on file. Social History Main Topics Smoking status: Former Smoker Packs/day: 0.25 Quit date: 10/10/2015 Smokeless tobacco: Never Used Alcohol use 0.0 oz/week Comment: occ Drug use: No Sexual activity: Yes Partners: Male Other Topics Concern Not on file Social History Narrative No narrative on file No family history on file. Review of Systems Constitutional: Negative for fever, chills Eyes: Negative for vision changes ENT: Negative for earache CV Positive for chest pain Resp: Positive for SOB Negative for cough GI: Positive for nausea, vomiting, and abd pain Negative for diarrhea : Negative for urinary problems Musculoskeletal: Positive for body aches Negative for back pain, joint pain Skin: Negative for rash Neuro/Psych: Negative for headache Other systems reviewed and negative except as noted. Physical Exam BP (!) 162/99 | Pulse 88 | Temp 98.5 F (36.9 C) (Oral) | Resp (S) 24 | SpO2 100% Vital signs interpretation: hypertensive, otherwise WNL Pulse Oximetry interpretation: Normal General: Alert, in no apparent distress Eyes: Normal inspection, pupils equal and round, non-icteric ENT: MMM, NCAT Neck: Normal inspection, Supple CV: Rate and rhythm normal, no murmurs Respiratory: Lungs clear to auscultation bilaterally, Normal WOB Abdomen: Soft, non-tender, non-distended, No rebound or guarding Ext: No edema or trauma noted Skin: Warm and dry, No rash Neuro: Normal facial symmetry, Moving extremities spontaneously Medical Decision Making and Emergency Department Course ED Department Course Patient presents to ED with complaints of chest pain. My ddx include but are not limited to acute LA, unstable angina, aortic dissection, pneumothorax, PE, myocarditis, pericarditis, esophagitis, SBP, Appendicitis, musculoskeletal disorder, pleurisy vs other. 12:20 PM the patient's troponin is negative. 12:11 PM CMP potassium 3.2, Chloride 94, BUN 53, Creatinine 16, total protein 8.7, Albumin 3.4, Globulin 5.3, A/G 0.6. Lactic acid 2.3, WBC 16.99. 1:54 PM Acute abdominal series shows the lungs are clear with no focal airspace consolida tion. There is no free air. There are no air fluid levels. There are no dilated loops of b owel. There is no organomegaly. Severe right and mild left osteoarthritic spurring is presen t.There is mild osteoarthritic spurring of the acetabulum. 3:32 PM at this time I am still waiting for a dialysis nurse to come in and current periton eal fluid. 3:40 PM Patient was reevaluated and is still having a 6/10 pain SBP a concern, due to elev ated white count, abd pain. And heart rate greater than 90. Staph species are the most commo n causes of SBP in peritoneal dialysis patients. However patient's symptoms could also be du e to the fact that a large amount of there was inserted into the abdomen. This could irritat e diaphragm and caused the chest pain the patient is having as well. 3:45 PM I discussed the patient's case with Dr. aTlley, who agrees with plan to admit the pa bakari to the hospitalist. He would like me to hold off on antibiotics until Gram stain and cell count had been obtained from the peritoneal fluid. 4:00 PM I have discussed the patient's case with Dr. Harper, Hospitalist at this time lyudmila gupta accepts the patient for admission. Patient will undergo further dialysis later tonight. Vitals: 06/04/17 1536 06/04/17 1545 06/04/17 1620 06/04/17 1724 BP: 162/90 BP Location: Right upper arm Pulse: 90 72 90 66 Resp: 16 14 Temp: 98.2 F (36.8 C) TempSrc: Oral SpO2: 100% 98% 94% 95% Weight: 84.5 kg (186 lb 4.8 oz) Height: 1.575 m (5' 2") Medications morphine injection 4 mg (4 mg Intravenous Given 06/04/17 1536) HYDROmorphone (DILAUDID) injection 1 mg (not administered) haloperidol lactate (HALDOL) injection 2 mg (2 mg Intravenous Given 06/04/17 1213) sodium chloride (bolus) 0.9 % 500 mL (0 mLs Intravenous Stopped 06/04/17 1414) promethazine (PHENERGAN) IVPB 12.5 mg (12.5 mg Intravenous New Bag 06/04/17 1633) Records Reviewed Old Medical Records Laboratory Evaluation Results Procedure Component Value Ref Range Date/Time Cell Count, Body Fluid [[id number]] Collected: 06/04/17 1506 Order Status: Completed Specimen: Body Fluid from Ascites Fluid Updated: 06/04/17 162 1 FLUID TYPE PERITONEAL FLUID COLOR COLORLESS APPEARANCE CLEAR RBC'S <10,000 /mm3 TOTAL NUCLEATED CELLS 21 /mm3 NEUTROPHILS 19 % LYMPHOCYTES 29 % MONOCYTES/MACROPHAGES 52 % CELLS COUNTED 100 Culture, Body Fluid [[id number]] Collected: 06/04/17 1506 Order Status: Sent Specimen: Body Fluid from Ascites Fluid Updated: 06/04/17 1522 Comprehensive metabolic panel [[id number]] (Abnormal) Collected: 06/04/17 1211 Order Status: Completed Specimen: Blood Updated: 06/04/17 1242 SODIUM 136 135 - 145 mmol/L POTASSIUM 3.2 (L) 3.5 - 4.9 mmol/L CHLORIDE 94 (L) 99 - 109 mmol/L CO2 27 23 - 32 mmol/L ANION GAP AGAP 18 5 - 20 mmol/L GLUCOSE 134 (H) 65 - 99 mg/dL BUN 53 (H) 8 - 25 mg/dL CREATININE 16 (H) 0.50 - 1.00 mg/dL BUN/CREAT 3 CALCIUM 9.2 8.5 - 10.5 mg/dL TOTAL PROTEIN 8.7 (H) 6.3 - 8.2 g/dL Albumin 3.4 (L) 3.6 - 5.0 g/dL GLOBULIN 5.3 (H) 1.3 - 4.9 g/dL A/G 0.6 (L) 1.0 - 2.4 TBIL 0.5 0.1 - 1.5 mg/dL ALK PHOS 90 35 - 115 U/L AST 9 (L) 10 - 45 U/L ALT 15 10 - 65 U/L EGFR 3 (L) >60 mL/min/1.73m2 Lactic acid [[id number]] (Abnormal) Collected: 06/04/17 1211 Order Status: Completed Specimen: Blood Updated: 06/04/17 1241 LACTIC ACID 2.3 (H) 0.4 - 2.0 mmol/L POC cardiac troponin [[id number]] Collected: 06/04/17 1220 Order Status: Completed Updated: 06/04/17 1234 POC CARDIAC TROPONIN 0.02 0.00 - 0.10 ng/mL CBC with differential [[id number]] (Abnormal) Collected: 06/04/17 1211 Order Status: Completed Specimen: Blood Updated: 06/04/17 1234 WBC 16.99 (H) 3.80 - 11.00 K/uL RBC 5.04 3.70 - 5.10 M/uL HGB 14.4 11.3 - 15.5 g/dL HCT 43.0 34.0 - 46.0 % MCV 85.4 80.0 - 100.0 fl MCH 28.5 27.0 - 34.0 pg MCHC 33.4 32.0 - 35.5 g/dL RDW SD 42.0 37 - 53 fl PLT 350 150 - 400 K/uL MPV 8.0 fl DIFF TYPE AUTOMATED NEUTROPHILS 87.88 % LYMPHOCYTES 8.30 % MONOCYTES 3.17 % EOSINOPHILS 0.08 % BASOPHILS 0.57 % NEUTROPHILS ABS 14.94 (H) 1.90 - 7.40 K/uL LYMPHOCYTES ABS 1.41 1.00 - 3.90 K/uL MONOCYTES ABS 0.54 0.00 - 0.80 K/uL EOSINOPHILS ABS 0.01 0.00 - 0.50 K/uL BASOPHILS ABS 0.10 0.00 - 0.10 K/uL MORPHOLOGY RBC AND PLT MORPHOLOGY APPEAR NORMAL Platelet Estimate ADEQUATE Diff Comment SLIDE SCANNED, AGREES WITH AUTOMATED RESULTS. I personally reviewed the lab results and they have been posted to the chart. Pertinent po sitive and negative findings have been addressed appropriately. Radiology Evaluation EK:26 AM Sinus tachycardia Rate: 103 Intervals unremarkable No significant ST and T waves abnormalities No acute ischemia. Interpreted by by me at time of service Imaging Results Acute Abdominal Series (Final result) Result time 06/04/17 13:59:14 Final result by Zev Conner MD (06/04/17 13:59:14) Impression: 1. No evidence of obstruction or perforation. Narrative: RAMONA OCONNOR 1980 XR ABDOMEN ACUTE SERIES 06/04/2017 1:54 PM INDICATION: Abdominal pain COMPARISON: CT, 01/22/2017 TECHNIQUE: Abdominal series, 3 views, single AP view of the chest, 2 views of the abdomen FINDINGS: The lungs are clear with no focal airspace consolidation. There is no free air. There are no air fluid levels. There are no dilated loops of bowel. There is no organomegal y. Severe right and mild left osteoarthritic spurring is present. There is mild osteoarthrit ic spurring of the acetabulum. ED Diagnoses Final diagnoses Abdominal pain, unspecified location Chest pain, unspecified type SBP (spontaneous bacterial peritonitis) ([facility]) Disposition: ED Disposition ED Disposition Condition Comment Admit/Observation Bed request special needs: None Diagnosis?: abdominal pain, leukocytosis Dictation software, OPENLANE, used which may contain error for similar sounding words even af ter review. Personal communication requested for any clarification. Procedures Additional Documentation Procedures Attending Provider Note: IIrvin MD personally performed the services described in this documentation, as scribed by Claudia Hernandez in my presence, and it is both accurate and complete. Chart Reviewed and Completed: 06/04/2017 5:29 PM Scribe: Jason Lloyd, scribing for and in the presence of Irvin Mujica MD. Signed by: Jason Ndiaye 06/04/2017 5:29 PM Irvin Mujica MD 06/04/17 1733 onversion Transaction, Provider Unknown - 06/04/2017 11:29 AM PDTFormatting of this note might be different from t brant original. ED Triage Notes by Mary Alice Malhotra RN at 06/04/17 1129 Author: Mary Alice Malhotra RN Service: (none) Author Type: Registered Nurse Filed: 06/04/17 1131 Date of Service: 06/04/17 1129 Status: Signed Casino Accountant: Mary Alice Malhotra RN (Registered Nurse) Pt states has been having nausea and shoulder pain ongoing x 3 days. Was seen on Friday at [facility] and again on Friday for same. Today was unable to finish dialysis due to na usea docume nted in this encounter Miscellaneous Notes Plan of Care - Conversion Transaction, Provider Unknown - 06/05/2017 11:22 AM PDT Plan of Care by SN Naomy at 06/05/171121 Author: SN Naomy Service: (none) Author Type: Cutter Hand Filed: 06/05/171121 Date of Service: 06/05/171121 Status: Signed Casino Accountant: SN Naomy (Cutter Hand) Problem: Safety Goal: Patient will be injury free during hospitalization Assess and monitor vitals signs, neurological status including level of consciousness and o rientation. Assess patient's risk for falls and implement fall prevention plan of care and i nterventions per hospital policy. Ensure arm band on, uncluttered walking paths in room, adequate room lighting, call light a nd overbed table within reach, bed in low position, wheels locked, side rails up per policy, and non-skid footwear provided. Outcome: Progressing Patient's bed in low position, call light near by, and was offered the hospital socks. She chose to wear her own. iscel laneous - Conversion Transaction, Provider Unknown - 06/04/2017 5:28 PM PDTFormatting of th is note might be different from the original. Medication History by Sheila Tony RPH at 06/04/171727 Author: Sheila Tony RPH Service: Pharmacy Author Type: Pharmacist Filed: 06/04/171727 Date of Service: 06/04/171727 Status: Signed Casino Accountant: Sheila Tony RPH (Pharmacist) Rx Admission Medication History Note I have reviewed the medication history for appropriate doses obtained by: Pharmacy Medicat ion History Stack Clerk. After reviewing the home medication list : I have identified the following: - Patient unable to verify use of two benzodiazepines - alprazolam and lorazolam. Recommend clarifying use of both drugs with patient. Please Review and Order Home Medications as necessary. Thanks Sheila Tony RPH 06/04/2017 5:26 PM ==== Katharina Arora CPhT 06/04/2017 17:11 Rx Medication History Stack Clerk Note Patients Preferred Pharmacy has been updated in EPIC: yes [facility] [place] [id number] Patients Allergies have been updated and marked as reviewed: yes Review of patient's allergies indicates no known allergies. The following changes were made to the allergy list (if any): none Medication History provided by: Family Member Follow-up Issues: None - Pending Pharmacist Review High Risk Medications (dual source verification needed): None Changes made to the medication list include: Added: Lorazepam Reliability of information obtained: FAIRLY UNRELIABLE Additional Comments: Patient was not able to verify much. Her tried to help but wa s unsure of most of the medicaitons. Medication history has been completed: Katharina Arora CPhT 06/04/2017 5:09 PM docume nted in this encounter Plan of Treatment Not on filedocumented as of this encounter Procedures + +--------+ + + + | Procedure Name | Priori | Date/Time | Associated Diagnosis | Comments | | | ty | | | | + +--------+ + + + | EXTERNAL LAB: CBC | Routin | 06/06/2017 | | Results for this | | | e | 5:07 AM | | procedure are in the | | | | PDT | | results section. | + +--------+ + + + | MAGNESIUM | Routin | 06/06/2017 | | Results for this | | | e | 5:07 AM | | procedure are in the | | | | PDT | | results section. | + +--------+ + + + | RENAL FUNCTION PANEL | Routin | 06/06/2017 | | Results for this | | | e | 5:07 AM | | procedure are in the | | | | PDT | | results section. | + +--------+ + + + | POTASSIUM | Routin | 06/05/2017 | | Results for this | | | e | 4:22 PM | | procedure are in the | | | | PDT | | results section. | + +--------+ + + + | EXTERNAL LAB: CBC | Routin | 06/05/2017 | | Results for this | | | e | 5:01 AM | | procedure are in the | | | | PDT | | results section. | + +--------+ + + + | POTASSIUM | Routin | 06/05/2017 | | Results for this | | | e | 5:01 AM | | procedure are in the | | | | PDT | | results section. | + +--------+ + + + | MAGNESIUM | Routin | 06/05/2017 | | Results for this | | | e | 5:01 AM | | procedure are in the | | | | PDT | | results section. | + +--------+ + + + | LACTIC ACID | Routin | 06/04/2017 | | Results for this | | | e | 5:44 PM | | procedure are in the | | | | PDT | | results section. | + +--------+ + + + | COMPREHENSIVE | Routin | 06/04/2017 | | Results for this | | METABOLIC PANEL | e | 5:41 PM | | procedure are in the | | | | PDT | | results section. | + +--------+ + + + | CELL COUNT, BODY | STAT | 06/04/2017 | | Results for this | | FLUID | | 3:06 PM | | procedure are in the | | | | PDT | | results section. | + +--------+ + + + | CULTURE, BODY FLUID, | STAT | 06/04/2017 | | Results for this | | STERILE, SMEAR, | | 3:06 PM | | procedure are in the | | WITH ANAEROBES | | PDT | | results section. | + +--------+ + + + | XR ABDOMEN AP | Routin | 06/04/2017 | | Results for this | | UPRIGHT KUB AND PA | e | 1:54 PM | | procedure are in the | | CHEST | | PDT | | results section. | + +--------+ + + + | EXTERNAL LAB: CBC | Routin | 06/04/2017 | | Results for this | | | e | 12:11 PM | | procedure are in the | | | | PDT | | results section. | + +--------+ + + + | LACTIC ACID | Routin | 06/04/2017 | | Results for this | | | e | 12:11 PM | | procedure are in the | | | | PDT | | results section. | + +--------+ + + + | COMPREHENSIVE | Routin | 06/04/2017 | | Results for this | | METABOLIC PANEL | e | 12:11 PM | | procedure are in the | | | | PDT | | results section. | + +--------+ + + + | ECG 12 LEAD | Routin | 06/04/2017 | | Results for this | | | e | 11:26 AM | | procedure are in the | | | | PDT | | results section. | + +--------+ + + + documented in this encounter Results External Lab: CBC (06/06/2017 5:07 AM PDT) + + + + + + | Component | Value | Ref Range | Performed | Pathologist | | | | | At | Signature | + + + + + + | WBC | 11.47 (H) | 3.80 - 11.00 | EXTERNAL | | | | | K/uL | LAB | | + + + + + + | Red Blood | 3.67 (L) | 3.70 - 5.10 | EXTERNAL | | | Cells | | M/uL | LAB | | | Counted | | | | | + + + + + + | Hemoglobin | 10.6 (L) | 11.3 - 15.5 | EXTERNAL | | | | | g/dL | LAB | | + + + + + + | Hematocrit, | 32.6 (L) | 34.0 - 46.0 % | EXTERNAL | | | POC | | | LAB | | + + + + + + | MCV | 88.9 | 80.0 - 100.0 fl | EXTERNAL | | | | | | LAB | | + + + + + + | MCH | 29.0 | 27.0 - 34.0 pg | EXTERNAL | | | | | | LAB | | + + + + + + | MCHC | 32.7 | 32.0 - 35.5 | EXTERNAL | | | | | g/dL | LAB | | + + + + + + | RDW-CV | 40.7 | 37 - 53 fl | EXTERNAL | | | | | | LAB | | + + + + + + | Platelet | 214 | 150 - 400 K/uL | EXTERNAL | | | Count | | | LAB | | | Plasma | | | | | + + + + + + | MPV | 8.1 | fl | EXTERNAL | | | | | | LAB | | + + + + + + | Differentia | AUTOMATED | | EXTERNAL | | | l Type | | | LAB | | + + + + + + | % Segmented | 80.49 | % | EXTERNAL | | | | | | LAB | | | Neutrophils | | | | | + + + + + + | % | 11.69 | % | EXTERNAL | | | Lymphocytes | | | LAB | | + + + + + + | % Monocytes | 5.52 | % | EXTERNAL | | | | | | LAB | | + + + + + + | % | 1.90 | % | EXTERNAL | | | Eosinophils | | | LAB | | + + + + + + | % Basophils | 0.40 | % | EXTERNAL | | | | | | LAB | | + + + + + + | Absolute | 9.23 (H) | 1.90 - 7.40 | EXTERNAL | | | Segmented | | K/uL | LAB | | | Neutrophils | | | | | + + + + + + | Absolute | 1.34 | 1.00 - 3.90 | EXTERNAL | | | Lymphocytes | | K/uL | LAB | | + + + + + + | Absolute | 0.63 | 0.00 - 0.80 | EXTERNAL | | | Monocytes | | K/uL | LAB | | + + + + + + | Absolute | 0.22 | 0.00 - 0.50 | EXTERNAL | | | Eosinophils | | K/uL | LAB | | + + + + + + | Absolute | 0.05Comment: Testing | 0.00 - 0.10 | EXTERNAL | | | Basophils | performed at [facility], [address] | K/uL | LAB | | | | [address], | | | | | | [place] [address] | | | | + + + + + + + + | Specimen | + + | Blood specimen | | (specimen) | + + + +---------+ + + | Performing | Address | City/State/Zipcode | Phone Number | | Organization | | | | + +---------+ + + | EXTERNAL LAB | | | | + +---------+ + + Magnesium (06/06/2017 5:07 AM PDT) + + + + + + | Component | Value | Ref Range | Performed | Pathologist | | | | | At | Signature | + + + + + + | Magnesium | 2.6 (H)Comment: Testing | 1.7 - 2.4 mg/dL | EXTERNAL | | | | performed at [facility], [address] | | LAB | | | | [address], | | | | | | [place] [address] | | | | + + + + + + + + | Specimen | + + | Blood specimen | | (specimen) | + + + +---------+ + + | Performing | Address | City/State/Zipcode | Phone Number | | Organization | | | | + +---------+ + + | EXTERNAL LAB | | | | + +---------+ + + Renal Function Panel (06/06/2017 5:07 AM PDT) + + + + + + | Component | Value | Ref Range | Performed | Pathologist | | | | | At | Signature | + + + + + + | Na | 136 | 135 - 145 | EXTERNAL | | | | | mmol/L | LAB | | + + + + + + | K | 3.5 | 3.5 - 4.9 | EXTERNAL | | | | | mmol/L | LAB | | + + + + + + | Cl | 95 (L) | 99 - 109 mmol/L | EXTERNAL | | | | | | LAB | | + + + + + + | CO2 | 29 | 23 - 32 mmol/L | EXTERNAL | | | | | | LAB | | + + + + + + | Anion Gap | 16 | 5 - 20 mmol/L | EXTERNAL | | | | | | LAB | | + + + + + + | Glucose, | 91 | 65 - 99 mg/dL | EXTERNAL | | | Fasting | | | LAB | | + + + + + + | BUN | 40 (H) | 8 - 25 mg/dL | EXTERNAL | | | | | | LAB | | + + + + + + | Creatinine | 13.9 (H) | 0.50 - 1.00 | EXTERNAL | | | | | mg/dL | LAB | | + + + + + + | Calcium | 7.7 (L) | 8.5 - 10.5 | EXTERNAL | | | | | mg/dL | LAB | | + + + + + + | Albumin | 2.4 (L) | 3.6 - 5.0 g/dL | EXTERNAL | | | | | | LAB | | + + + + + + | PHOSPHORUS | 3.8 | 2.3 - 4.8 mg/dL | EXTERNAL | | | | | | LAB | | + + + + + + | Estimated | 3 (L)Comment: GFR <60: | mL/min/1.73m2 | EXTERNAL | | | GFR | CHRONIC KIDNEY DISEASE, | | LAB | | | | IF FOUND OVER A 3 MONTH | | | | | | PERIOD.GFR <15: KIDNEY | | | | | | FAILURE.FOR | | | | | | AMERICANS, MULTIPLY THE | | | | | | CALCULATED GFR BY | | | | | | 1.210.Testing performed | | | | | | at [facility], [address] | | | | | | [address], | | | | | | [place] [address] | | | | + + + + + + + + | Specimen | + + | | + + + +---------+ + + | Performing | Address | City/State/Zipcode | Phone Number | | Organization | | | | + +---------+ + + | EXTERNAL LAB | | | | + +---------+ + + Potassium (06/05/2017 4:22 PM PDT) + + + + + + | Component | Value | Ref Range | Performed | Pathologist | | | | | At | Signature | + + + + + + | K | 3.7Comment: Testing | 3.5 - 4.9 | EXTERNAL | | | | performed at [facility] [place] | mmol/L | LAB | | | | [address];[place] | | | | | | [address] | | | | + + + + + + + + | Specimen | + + | Blood specimen | | (specimen) | + + + +---------+ + + | Performing | Address | City/State/Zipcode | Phone Number | | Organization | | | | + +---------+ + + | EXTERNAL LAB | | | | + +---------+ + + External Lab: CBC (06/05/2017 5:01 AM PDT) + + + + + + | Component | Value | Ref Range | Performed | Pathologist | | | | | At | Signature | + + + + + + | WBC | 13.43 (H) | 3.80 - 11.00 | EXTERNAL | | | | | K/uL | LAB | | + + + + + + | Red Blood | 4.06 | 3.70 - 5.10 | EXTERNAL | | | Cells | | M/uL | LAB | | | Counted | | | | | + + + + + + | Hemoglobin | 11.7 | 11.3 - 15.5 | EXTERNAL | | | | | g/dL | LAB | | + + + + + + | Hematocrit, | 36.3 | 34.0 - 46.0 % | EXTERNAL | | | POC | | | LAB | | + + + + + + | MCV | 89.4 | 80.0 - 100.0 fl | EXTERNAL | | | | | | LAB | | + + + + + + | MCH | 28.8 | 27.0 - 34.0 pg | EXTERNAL | | | | | | LAB | | + + + + + + | MCHC | 32.2 | 32.0 - 35.5 | EXTERNAL | | | | | g/dL | LAB | | + + + + + + | RDW-CV | 42.0 | 37 - 53 fl | EXTERNAL | | | | | | LAB | | + + + + + + | Platelet | 250 | 150 - 400 K/uL | EXTERNAL | | | Count | | | LAB | | | Plasma | | | | | + + + + + + | MPV | 8.5 | fl | EXTERNAL | | | | | | LAB | | + + + + + + | Differentia | AUTOMATED | | EXTERNAL | | | l Type | | | LAB | | + + + + + + | % Segmented | 76.76 | % | EXTERNAL | | | | | | LAB | | | Neutrophils | | | | | + + + + + + | % | 14.84 | % | EXTERNAL | | | Lymphocytes | | | LAB | | + + + + + + | % Monocytes | 6.20 | % | EXTERNAL | | | | | | LAB | | + + + + + + | % | 1.43 | % | EXTERNAL | | | Eosinophils | | | LAB | | + + + + + + | % Basophils | 0.77 | % | EXTERNAL | | | | | | LAB | | + + + + + + | Absolute | 10.30 (H) | 1.90 - 7.40 | EXTERNAL | | | Segmented | | K/uL | LAB | | | Neutrophils | | | | | + + + + + + | Absolute | 1.99 | 1.00 - 3.90 | EXTERNAL | | | Lymphocytes | | K/uL | LAB | | + + + + + + | Absolute | 0.83 (H) | 0.00 - 0.80 | EXTERNAL | | | Monocytes | | K/uL | LAB | | + + + + + + | Absolute | 0.19 | 0.00 - 0.50 | EXTERNAL | | | Eosinophils | | K/uL | LAB | | + + + + + + | Absolute | 0.10Comment: Testing | 0.00 - 0.10 | EXTERNAL | | | Basophils | performed at [facility], [address] | K/[address] | LAB | | | | [address], | | | | | | [place] [address] | | | | + + + + + + + + | Specimen | + + | Blood specimen | | (specimen) | + + + +---------+ + + | Performing | Address | City/State/Zipcode | Phone Number | | Organization | | | | + +---------+ + + | EXTERNAL LAB | | | | + +---------+ + + Potassium (06/05/2017 5:01 AM PDT) + + + + + + | Component | Value | Ref Range | Performed | Pathologist | | | | | At | Signature | + + + + + + | K | 3.0 (L)Comment: Testing | 3.5 - 4.9 | EXTERNAL | | | | performed at [facility], [address] | mmol/L | LAB | | | | [address] | | | | | | [place] [address] | | | | + + + + + + + + | Specimen | + + | Blood specimen | | (specimen) | + + + +---------+ + + | Performing | Address | City/State/Zipcode | Phone Number | | Organization | | | | + +---------+ + + | EXTERNAL LAB | | | | + +---------+ + + Magnesium (06/05/2017 5:01 AM PDT) + + + + + + | Component | Value | Ref Range | Performed | Pathologist | | | | | At | Signature | + + + + + + | Magnesium | 3.0 (H)Comment: Testing | 1.7 - 2.4 mg/dL | EXTERNAL | | | | performed at [facility], [address] | | LAB | | | | [address], | | | | | | [place] [address] | | | | + + + + + + + + | Specimen | + + | Blood specimen | | (specimen) | + + + +---------+ + + | Performing | Address | City/State/Zipcode | Phone Number | | Organization | | | | + +---------+ + + | EXTERNAL LAB | | | | + +---------+ + + Lactic Acid (06/04/2017 5:44 PM PDT) + + + + + + | Component | Value | Ref Range | Performed | Pathologist | | | | | At | Signature | + + + + + + | Lactate | 1.0Comment: Testing | 0.4 - 2.0 | EXTERNAL | | | | performed at [facility] [place] | mmol/L | LAB | | | | [address];[place] | | | | | | [address] | | | | + + + + + + + + | Specimen | + + | Blood specimen | | (specimen) | + + + +---------+ + + | Performing | Address | City/State/Zipcode | Phone Number | | Organization | | | | + +---------+ + + | EXTERNAL LAB | | | | + +---------+ + + Comprehensive Metabolic Panel (06/04/2017 5:41 PM PDT) + + + + + + | Component | Value | Ref Range | Performed | Pathologist | | | | | At | Signature | + + + + + + | Na | 138 | 135 - 145 | EXTERNAL | | | | | mmol/L | LAB | | + + + + + + | K | 3.7 | 3.5 - 4.9 | EXTERNAL | | | | | mmol/L | LAB | | + + + + + + | Cl | 96 (L) | 99 - 109 mmol/L | EXTERNAL | | | | | | LAB | | + + + + + + | CO2 | 28 | 23 - 32 mmol/L | EXTERNAL | | | | | | LAB | | + + + + + + | Anion Gap | 18 | 5 - 20 mmol/L | EXTERNAL | | | | | | LAB | | + + + + + + | Glucose, | 100 (H) | 65 - 99 mg/dL | EXTERNAL | | | Fasting | | | LAB | | + + + + + + | BUN | 53 (H) | 8 - 25 mg/dL | EXTERNAL | | | | | | LAB | | + + + + + + | Creatinine | 16.7 (H) | 0.50 - 1.00 | EXTERNAL | | | | | mg/dL | LAB | | + + + + + + | BUN/Creatin | 3 | | EXTERNAL | | | ine Ratio | | | LAB | | + + + + + + | Calcium | 8.2 (L) | 8.5 - 10.5 | EXTERNAL | | | | | mg/dL | LAB | | + + + + + + | Protein, | 7.1 | 6.3 - 8.2 g/dL | EXTERNAL | | | Total | | | LAB | | + + + + + + | Albumin | 2.7 (L) | 3.6 - 5.0 g/dL | EXTERNAL | | | | | | LAB | | + + + + + + | Globulin | 4.4 | 1.3 - 4.9 g/dL | EXTERNAL | | | | | | LAB | | + + + + + + | A/G Ratio | 0.6 (L) | 1.0 - 2.4 | EXTERNAL | | | | | | LAB | | + + + + + + | Bilirubin | 0.4 | 0.1 - 1.5 mg/dL | EXTERNAL | | | Total | | | LAB | | + + + + + + | ALP, | 70 | 35 - 115 U/L | EXTERNAL | | | External | | | LAB | | + + + + + + | AST | 11 | 10 - 45 U/L | EXTERNAL | | | | | | LAB | | + + + + + + | ALT | 16 | 10 - 65 U/L | EXTERNAL | | | | | | LAB | | + + + + + + | Estimated | 3 (L)Comment: GFR <60: | mL/min/1.73m2 | EXTERNAL | | | GFR | CHRONIC KIDNEY DISEASE, | | LAB | | | | IF FOUND OVER A 3 MONTH | | | | | | PERIOD.GFR <15: KIDNEY | | | | | | FAILURE.FOR | | | | | | AMERICANS, MULTIPLY THE | | | | | | CALCULATED GFR BY | | | | | | 1.210.Testing performed | | | | | | at [facility], [address] | | | | | [address], | | | | | | [place] [address] | | | | + + + + + + + + | Specimen | + + | Blood specimen | | (specimen) | + + + +---------+ + + | Performing | Address | City/State/Zipcode | Phone Number | | Organization | | | | + +---------+ + + | EXTERNAL LAB | | | | + +---------+ + + Culture, Body Fluid, Sterile, Smear, with Anaerobes (06/04/2017 3:06 PM PDT) + + | Specimen | + + | Body fluid sample | | (specimen) | + + + + + | Narrative | Performed At | + + + | Specimen Description PERITONEAL FLUID GRAM | EXTERNAL LAB | | STAIN NO CELLS OR ORGANISMS SEEN | | | CULTURE NO GROWTH 4 DAYS | | + + + + +---------+ + + | Performing | Address | City/State/Zipcode | Phone Number | | Organization | | | | + +---------+ + + | EXTERNAL LAB | | | | + +---------+ + + Cell Count, Body Fluid (06/04/2017 3:06 PM PDT) + + | Specimen | + + | Body fluid sample | | (specimen) | + + + + + | Narrative | Performed At | + + + | FLUID TYPE PERITONEAL FLUID | EXTERNAL LAB | | COLOR COLORLESS | | | APPEARANCE CLEAR RBC'S | | | <91639 TOTAL NUCLEATED | | | CELLS 21 NEUTROPHILS | | | 19 LYMPHOCYTES | | | 29 MONOCYTES/MACROPHAGES | | | 52 CELLS COUNTED 100 | | | Testing performed at [facility] [place] [place] [address];[place] [address] | | + + + + +---------+ + + | Performing | Address | City/State/Zipcode | Phone Number | | Organization | | | | + +---------+ + + | EXTERNAL LAB | | | | + +---------+ + + XR Abd Supine and Upright w 1 Vw Chest (06/04/2017 1:54 PM PDT) + + | Specimen | + + | | + + + + + | Impressions | Performed At | + + + | 1. No evidence of obstruction or perforation. Electronically | | | signed by Zev Conner MD on 06/04/2017 1:59 PM | | + + + + + + | Narrative | Performed At | + + + | [facility] 1980 XR ABDOMEN ACUTE SERIES 06/04/2017 1:54 | | | PM INDICATION: Abdominal pain COMPARISON: CT, 01/22/2017 | | | TECHNIQUE: Abdominal series, 3 views, single AP view of the chest, 2 | | | views of the abdomen FINDINGS: The lungs are clear with no focal | | | airspace consolidation. There is no free air. There are no air | | | fluid levels. There are no dilated loops of bowel. There is no | | | organomegaly. Severe right and mild left osteoarthritic spurring is | | | present. There is mild osteoarthritic spurring of the acetabulum. | | + + + + + | Procedure Note | + + | Endy, Migue Conversion - 06/24/2019 3:39 AM PDT RAM[facility] C GOATSEN1980XR ABDOMEN | | ACUTE SERIES06/04/2017 1:54 PM INDICATION: Abdominal pain COMPARISON: CT, 01/22/2017 | | TECHNIQUE: Abdominal series, 3 views, single AP view of the chest, 2 views of the | | abdomen FINDINGS: The lungs are clear with no focal airspace consolidation. There is | | no free air. There are no air fluid levels. There are no dilated loops of bowel. There | | is no organomegaly. Severe right and mild left osteoarthritic spurring is present. There | | is mild osteoarthritic spurring of the acetabulum. IMPRESSION: 1. No evidence of | | obstruction or perforation. | | 1:59 PM | |TECHNIQUE: Abdominal series, 3 views, single AP view of the chest, 2 views of the abdomen | | | |FINDINGS: The lungs are clear with no focal airspace consolidation. There is no free air. There are no air fluid levels. There are no dilated loops of bowel. There is no organomegal y. Severe right and mild left | |osteoarthritic spurring is present. There | | is mild osteoarthritic spurring of the acetabulum. | | | |IMPRESSION: | |1. No evidence of obstruction or perforation. | | | | | + + External Lab: CBC (06/04/2017 12:11 PM PDT) + + + + + + | Component | Value | Ref Range | Performed | Pathologist | | | | | At | Signature | + + + + + + | WBC | 16.99 (H) | 3.80 - 11.00 | EXTERNAL | | | | | K/uL | LAB | | + + + + + + | Red Blood | 5.04 | 3.70 - 5.10 | EXTERNAL | | | Cells | | M/uL | LAB | | | Counted | | | | | + + + + + + | Hemoglobin | 14.4 | 11.3 - 15.5 | EXTERNAL | | | | | g/dL | LAB | | + + + + + + | Hematocrit, | 43.0 | 34.0 - 46.0 % | EXTERNAL | | | POC | | | LAB | | + + + + + + | MCV | 85.4 | 80.0 - 100.0 fl | EXTERNAL | | | | | | LAB | | + + + + + + | MCH | 28.5 | 27.0 - 34.0 pg | EXTERNAL | | | | | | LAB | | + + + + + + | MCHC | 33.4 | 32.0 - 35.5 | EXTERNAL | | | | | g/dL | LAB | | + + + + + + | RDW-CV | 42.0 | 37 - 53 fl | EXTERNAL | | | | | | LAB | | + + + + + + | Platelet | 350 | 150 - 400 K/uL | EXTERNAL | | | Count | | | LAB | | | Plasma | | | | | + + + + + + | MPV | 8.0 | fl | EXTERNAL | | | | | | LAB | | + + + + + + | Differentia | AUTOMATED | | EXTERNAL | | | l Type | | | LAB | | + + + + + + | % Segmented | 87.88 | % | EXTERNAL | | | | | | LAB | | | Neutrophils | | | | | + + + + + + | % | 8.30 | % | EXTERNAL | | | Lymphocytes | | | LAB | | + + + + + + | % Monocytes | 3.17 | % | EXTERNAL | | | | | | LAB | | + + + + + + | % | 0.08 | % | EXTERNAL | | | Eosinophils | | | LAB | | + + + + + + | % Basophils | 0.57 | % | EXTERNAL | | | | | | LAB | | + + + + + + | Absolute | 14.94 (H) | 1.90 - 7.40 | EXTERNAL | | | Segmented | | K/uL | LAB | | | Neutrophils | | | | | + + + + + + | Absolute | 1.41 | 1.00 - 3.90 | EXTERNAL | | | Lymphocytes | | K/uL | LAB | | + + + + + + | Absolute | 0.54 | 0.00 - 0.80 | EXTERNAL | | | Monocytes | | K/uL | LAB | | + + + + + + | Absolute | 0.01 | 0.00 - 0.50 | EXTERNAL | | | Eosinophils | | K/uL | LAB | | + + + + + + | Absolute | 0.10 | 0.00 - 0.10 | EXTERNAL | | | Basophils | | K/uL | LAB | | + + + + + + | RBC | RBC AND PLT MORPHOLOGY | | EXTERNAL | | | Morphology | APPEAR NORMAL | | LAB | | + + + + + + | Platelet | ADEQUATE | | EXTERNAL | | | Estimate | | | LAB | | + + + + + + | Differentia | SLIDE SCANNED, AGREES | | EXTERNAL | | | l Comments | WITH AUTOMATED | | LAB | | | | RESULTS.Comment: Testing | | | | | | performed at [facility] [place] | | | | | | [address];[place] | | | | | | [address] | | | | + + + + + + + + | Specimen | + + | Blood specimen | | (specimen) | + + + +---------+ + + | Performing | Address | City/State/Zipcode | Phone Number | | Organization | | | | + +---------+ + + | EXTERNAL LAB | | | | + +---------+ + + Lactic Acid (06/04/2017 12:11 PM PDT) + + + + + + | Component | Value | Ref Range | Performed | Pathologist | | | | | At | Signature | + + + + + + | Lactate | 2.3 (H)Comment: Testing | 0.4 - 2.0 | EXTERNAL | | | | performed at [facility] [place] | mmol/L | LAB | | | | [address];[place], [place] | | | | | | [address] | | | | + + + + + + + + | Specimen | + + | Blood specimen | | (specimen) | + + + +---------+ + + | Performing | Address | City/State/Zipcode | Phone Number | | Organization | | | | + +---------+ + + | EXTERNAL LAB | | | | + +---------+ + + Comprehensive Metabolic Panel (06/04/2017 12:11 PM PDT) + + + + + + | Component | Value | Ref Range | Performed | Pathologist | | | | | At | Signature | + + + + + + | Na | 136 | 135 - 145 | EXTERNAL | | | | | mmol/L | LAB | | + + + + + + | K | 3.2 (L) | 3.5 - 4.9 | EXTERNAL | | | | | mmol/L | LAB | | + + + + + + | Cl | 94 (L) | 99 - 109 mmol/L | EXTERNAL | | | | | | LAB | | + + + + + + | CO2 | 27 | 23 - 32 mmol/L | EXTERNAL | | | | | | LAB | | + + + + + + | Anion Gap | 18 | 5 - 20 mmol/L | EXTERNAL | | | | | | LAB | | + + + + + + | Glucose, | 134 (H) | 65 - 99 mg/dL | EXTERNAL | | | Fasting | | | LAB | | + + + + + + | BUN | 53 (H) | 8 - 25 mg/dL | EXTERNAL | | | | | | LAB | | + + + + + + | Creatinine | 16 (H) | 0.50 - 1.00 | EXTERNAL | | | | | mg/dL | LAB | | + + + + + + | BUN/Creatin | 3 | | EXTERNAL | | | ine Ratio | | | LAB | | + + + + + + | Calcium | 9.2 | 8.5 - 10.5 | EXTERNAL | | | | | mg/dL | LAB | | + + + + + + | Protein, | 8.7 (H) | 6.3 - 8.2 g/dL | EXTERNAL | | | Total | | | LAB | | + + + + + + | Albumin | 3.4 (L) | 3.6 - 5.0 g/dL | EXTERNAL | | | | | | LAB | | + + + + + + | Globulin | 5.3 (H) | 1.3 - 4.9 g/dL | EXTERNAL | | | | | | LAB | | + + + + + + | A/G Ratio | 0.6 (L) | 1.0 - 2.4 | EXTERNAL | | | | | | LAB | | + + + + + + | Bilirubin | 0.5 | 0.1 - 1.5 mg/dL | EXTERNAL | | | Total | | | LAB | | + + + + + + | ALP, | 90 | 35 - 115 U/L | EXTERNAL | | | External | | | LAB | | + + + + + + | AST | 9 (L) | 10 - 45 U/L | EXTERNAL | | | | | | LAB | | + + + + + + | ALT | 15 | 10 - 65 U/L | EXTERNAL | | | | | | LAB | | + + + + + + | Estimated | 3 (L)Comment: GFR <60: | mL/min/1.73m2 | EXTERNAL | | | GFR | CHRONIC KIDNEY DISEASE, | | LAB | | | | IF FOUND OVER A 3 MONTH | | | | | | PERIOD.GFR <15: KIDNEY | | | | | | FAILURE.FOR | | | | | | AMERICANS, MULTIPLY THE | | | | | | CALCULATED GFR BY | | | | | | 1.210.Testing performed | | | | | | at [facility] [place] [place] [address] | | | | | | [facility];[place] [address] | | | | + + + + + + + + | Specimen | + + | Blood specimen | | (specimen) | + + + +---------+ + + | Performing | Address | City/State/Zipcode | Phone Number | | Organization | | | | + +---------+ + + | EXTERNAL LAB | | | | + +---------+ + + ECG 12 lead (06/04/2017 11:26 AM PDT) + + + + + + | Component | Value | Ref Range | Performed | Pathologist | | | | | At | Signature | + + + + + + | DIAGNOSIS: | Sinus | | EXTERNAL | | | | tachycardiaNonspecific | | LAB | | | | ST and T wave | | | | | | abnormalityAbnormal | | | | | | ECGNo previous ECGs | | | | | | availableThis ECG | | | | | | contains Unconfirmed | | | | | | Interpretation | | | | | | Statements. See ED | | | | | | Record for Physician | | | | | | Interpretation. | | | | | | Confirmed by MUSE READ | | | | | | ONLY, -COMPUTER ([id number]), | | | | | | website/blog editor Alyce Barkley | | | | | | (18) on 06/04/2017 | | | | | | 1:55:24 PMAlso confirmed | | | | | | by MUSE READ ONLY, | | | | | | -COMPUTER ([id number]), website/blog editor | | | | | | NELDA HOANG (2) on | | | | | | 06/04/2017 1:56:29 PM | | | | + + + + + + + + | Specimen | + + | | + + + + + | Narrative | Performed At | + + + | Historically converted procedure from [facility] environment | EXTERNAL LAB | + + + + +---------+ + + | Performing | Address | City/State/Zipcode | Phone Number | | Organization | | | | + +---------+ + + | EXTERNAL LAB | | | | + +---------+ + + documented in this encounter Visit Diagnoses + + | Diagnosis | + + | Abdominal pain, unspecified location | + + | Chest pain, unspecified type | + + | SBP (spontaneous bacterial peritonitis) (HCC) Spontaneous bacterial peritonitis | + + | Diffuse abdominal pain Abdominal pain, unspecified site | + + documented in this encounter
--- OUTSIDE RECORDS SUMMARY | ~2020-05-11 | XMS | Encounter Summary ---
Demographics + + + | Address | [address] | | | [place] [address] | + + + | Home Phone | | + + + | Preferred Language | Unknown | + + + | Marital Status | | + + + | Alevism Affiliation | Unknown | + + + | Race | Unknown | + + + | Ethnic Group | Unknown | + + + Author + + + | Author | [facility] | | | and [place] | + + + | Organization | [facility] | | | and [place] | + + + | Address | Unknown | + + + | Phone | Unavailable | + + + Support + + + + + | Name | Relationship | Address | Phone | + + + + + | Lyubov Smalls | ECON | [place], [place] | | | | | [address] | | + + + + + | Lydia Palm | ECON | [place], [place] | | | | | [address] | | + + + + + | melinda METZ" | ECON | [place], [place] | | | [place]ba | | [address] | | + + + + + | Jose C Oconnor | ECON | [place] | | | | | [place] | | | | | [address] | | + + + + + Care Team Providers + +------+ + | Care Keypunch Operator Name | Role | Phone | + +------+ + | No, Physician | PCP | Unavailable | + +------+ + Encounter Details +--------+ + + + + | Date | Type | Department | Care Team | Description | +--------+ + + + + | 08/24/ | Prep for | [facility] | Qasim Pederson MD | Infection of | | 2019 | Procedure | VASCULAR SURGERY | [address] | arteriovenous | | | | [address] | [place] [facility] [place] | dialysis fistula, | | | | [facility] [place] | [address] | subsequent encounter | | | | [address] | | (Primary Dx); ESRD | | | | [phone] | | on hemodialysis | | | | | | (HCC) | +--------+ + + + + Social [...] subsequent encounter - Primary | + + | ESRD on hemodialysis (HCC) End stage renal disease | + + documented in this encounter
--- OUTSIDE RECORDS SUMMARY | ~2020-05-11 | XMS | Encounter Summary ---
Demographics + + + | Address | [address] | | | [place] [address] | + + + | Home Phone | | + + + | Preferred Language | Unknown | + + + | Marital Status | | + + + | Restoration Affiliation | Unknown | + + + | Race | Unknown | + + + | Ethnic Group | Unknown | + + + Author + + + | Author | [facility] | | | and [place] | + + + | Organization | [facility] | | | and [place] | + + + | Address | Unknown | + + + | Phone | Unavailable | + + + Support + + + + + | Name | Relationship | Address | Phone | + + + + + | Lyubov Smalls | ECON | [place], [place] | | | | | [address] | | + + + + + | Lydia Palm | ECON | [place], [place] | | | | | [address] | | + + + + + | melinda METZ" | ECON | [place], [place] | | | [place] | | [address] | | + + + + + | Jose C Oconnor | ECON | [place] | | | | | [place] | | | | | [address] | | + + + + + Care Team Providers + +------+ + | Care Order Booker Name | Role | Phone | + +------+ + | No, Physician | PCP | Unavailable | + +------+ + Reason for Visit + +--------+ + | Reason | Onset | Comments | | | Date | | + +--------+ + | Follow-up | 07/09/ | | | | 2019 | | + +--------+ + Encounter Details +--------+ + + + + | Date | Type | Department | Care Team | Description | +--------+ + + + + | 07/09/ | Telephone | [facility] | Marixa Mendoza, | Follow-up | | 2018 | | VASCULAR SURGERY | [facility] | | | | | [address] [place] | | | | | | [place], [place] | | | | | | [address] | | | | | | [phone] | | | +--------+ + + + [...] this encounter Miscellaneous Notes Telephone Encounter - Nidhi Whitaker, MICHELLE - 07/20/2019 4:41 PM PDTReturn call made to Malena drake Mosqueda, she is currently in a room with a patient, number left with June for Brook to call mai ack. elephone Adenike Justice - 07/20/2019 3:39 PM You keene wound care cassie it, is calling again for Follow-up and would like a call back. Additional Call Details: Requesting a call back from nurse regarding wound care. Please ca [phone] and ask for Brook Massey elephone Nidhi Norris, MICHELLE - 07/13/2019 2:19 PM PDTCalled patient back, wound vac rep Araiza has been contacted and will be sending a box of wound care supplies to patient. Patient ins tructed to call [facility] if she has not received anything by . Patient stated un derstanding. She is currently at her wound vac dressing change appointment, her first on s on Friday, she states she is doing well with no issue. elephone Encounter - VinayakMayra I - 07/13/2019 1:37 PM PDTDiane, is calling again for Follow-up and would like a call back. Additional Call Details: Requesting more supplies for wound care. Please call back. elephone Encounter - Marixa Buckley, [employer] [place] - 07/09/2019 10:11 AM PDTSpoke with pt re: f/u from wound debridement & vac. She states she is doing "very good" and is heading out for dialysis this morning. She is scheduled with RN on 07/27/2019. Encouraged her to call back with any questio ns/concerns. SamP d ocumented in this encounter Plan of Treatment Not on filedocumented as of this encounter Visit Diagnoses Not on filedocumented in this encounter
--- OUTSIDE RECORDS SUMMARY | ~2020-05-11 | XMS | Encounter Summary ---
Demographics + + + | Address | [address] | | | [place] [address] | + + + | Home Phone | | + + + | Preferred Language | Unknown | + + + | Marital Status | | + + + | Yazidism Affiliation | Unknown | + + + | Race | Unknown | + + + | Ethnic Group | Unknown | + + + Author + + + | Author | [facility] | | | and [place] | + + + | Organization | [facility] | | | and [place] | + + + | Address | Unknown | + + + | Phone | Unavailable | + + + Support + + + + + | Name | Relationship | Address | Phone | + + + + + | Lyubov Smalls | ECON | [place], [place] | | | | | [address] | | + + + + + | Lydia Palm | ECON | [place], [place] | | | | | [address] | | + + + + + | melinda METZ" | ECON | [place], [place] | | | reba | | [address] | | + + + + + | Jose C Oconnor | ECON | [place] | | | | | [place] | | | | | [phone] | | + + + + + Care Team Providers + +------+ + | Care Molding Line Assistant Name | Role | Phone | + +------+ + | Unknown, Physician | PCP | | + +------+ + Reason for Visit + + + | Reason | Comments | + + + | Follow-up | 6 wk f/u wound check | + + + Encounter Details +--------+---------+ + + + | Date | Type | Department | Care Team | Description | +--------+---------+ + + + | 11/23/ | Office | [facility] | Man Jeronimo, | ESRD on dialysis | | 2020 | Visit | VASCULAR SURGERY | [address] | ([facility]) (Primary Dx) | | | | [address] | [address], | | | | | [place], [place] | [place] [address] | | | | | [address] | [phone] | | | | | [phone] | | | +--------+---------+ + + + [...] +---------+ + + | Blood Pressure | 115/62 | 11/23/2019 1:08 PM | | | | | PST | | + +---------+ + + | Pulse | 72 | 11/23/2019 1:08 PM | | | | | PST | | + +---------+ + + | Temperature | - | - | | + +---------+ + + | Respiratory Rate | - | - | | + +---------+ + + | Oxygen Saturation | 97% | 11/23/2019 1:08 PM | | | | | PST [...] + documented as of this encounter Progress Man Iyer PA-C - 11/23/2019 1:00 PM PSTFormatting of this note might be different f rom the original. [facility] [address] [place] [address] [place] [address] Office: [phone] DATE OF VISIT: 11/23/2019 PATIENT NAME: Ramona Oconnor : 1980; AGE: 39 y.o.; Sex:F PHONE NUMBER: PROVIDER: Man Jeronimo PA-C PRIMARY CARE / REFERRING PHYSICIAN: No ref. provider found / No Physician on file REASON FOR EVALUATION / CHIEF COMPLAINT: Vascular Surgery follow up visit to discuss n ew access creation HISTORY OF PRESENT ILLNESS: The patient presents today for a Vascular Surgery follow up visit. She is well known to our service. The patient is39 y.o.femalewith significant past medical history of HTN and ESRDwho presented to [facility] ED with fever and chills with concern [...] 08/26 patient was emerg ently transferred to [facility] for severe bleeding from left axilla. She was taken to the OR for graft ligation. However, the graft was not removed and wound was closed. She underwent r emoval of graft and wound vac placement x 2 on 09/03/2019. She has been doing well since her last surgery. Her wound vacs are off and her wounds are fully healed. She denies any fever, chills, night sweats. She presents for follow up to discuss future AVF/AVG creation. PAST MEDICAL HISTORY: Past Medical History: Diagnosis Date Acid reflux disease Disorder of kidney and ureter unknown cause for renal failure. Diverticulitis 01/05/2019 Diverticulosis ESRD on peritoneal dialysis (HCC) 10/28/2015 ESRD from [facility]N on kidney biopsy showing global glomerulosclerosis. There was not enough talya pling for IF or EM. Serological workup with hepatitis panel, HIV testing, CRYSTAL, syphilis nega tive. She had normal C4 and minimally reduced C3 level. Free light chain ratio normal. Imagi ng with kidney ultrasound from 10/25/15 showed normal sized kidneys. She initiated CREATIVE DIRECTOR with PD 10/28/15. 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 Peritonitis associated with peritoneal dialysis (HCC) 01/24/2017 Peritonitis due to infected peritoneal dialysis catheter (HCC) 12/08/2018 Range of motion deficit left arm Renal insufficiency Secondary hyperparathyroidism (HCC) Uremia 10/28/2015 PAST SURGICAL HISTORY: Past Surgical History: Procedure Laterality Date ABDOMEN SURGERY 10/27/2016 PD cath ARTERIAL BYPASS SURGRY AV FISTULA REPAIR N/A 08/26/2019 Procedure: REVISION LEFT AXILLARY AVG; WILL NEED C-ARM, OCCLUSION BALLOONS, VIABAHN STENTS ; Surgeon: Qasim Pederson MD; [place] [facility] [place] FISTULA REPAIR Left 09/03/2019 Procedure: Resection of left arm AV graft with wound vac placement; Surgeon: Lexi Posada; Location[place] [facility] [place] CATHETER REMOVAL 02/04/2019 Procedure: DIALYSIS CATHETER - REMOVAL; Surgeon: Qasim Pederson MD; Location: [facility] OR ; Service: Vascular; Laterality: N/A; Infected PD catheter removal DEBRIDEMENT Left 07/08/2019 Procedure: LEFT AXILLA WOUND DEBRIDEMENT, WASHOUT AND POSSIBLE WOUND VAC PLACEMENT; Surge on: Qasim Pederson MD; [place] [facility] [place] OTHER SURGICAL HISTORY Left 03/11/2019 AV FISTULA PLACEMENT - Procedure: AV FISTULA; Surgeon: Qasim Pederson MD; Location: [facility]; Service: Vascular; Laterality: Left; OTHER SURGICAL HISTORY HARDWARE PRESENT OTHER SURGICAL HISTORY Right 01/2019 chest wall OTHER SURGICAL HISTORY Left 05/06/2019 AV GRAFT CREATION - Procedure: AV GRAFT CREATION; Surgeon: Qasim Pederson MD; Location: [facility] OR; Service: Vascular; Laterality: Left; bovine carotid graft OTHER SURGICAL HISTORY Left 05/26/2019 WOUND VAC PLACEMENT/REPLACEMENT - Procedure: WOUND VAC - PLACEMENT - REPLACEMENT; Surgeon : Qasim Pederson MD; Location: [facility] OR; Service: Vascular; Laterality: Left; PERITONEAL CATHETER PLACEMENT/REMOVAL 10/28/2015 Procedure: LAPAROSCOPIC - PERITONEAL DIALYSIS CATH INSERTION; Surgeon: Mundo Ramos MD; Lo cation: [facility] OR; Service: Vascular; Laterality: N/A; UPPER GASTROINTESTINAL ENDOSCOPY 09/10/2017 Procedure: ESOPHAGOGASTRODUODENOSCOPY; Surgeon: Beena Peters MD; Location: [facility]; Service: Gastroenterology; Laterality: N/A; WISDOM TOOTH EXTRACTION SOCIAL HISTORY: Social History Socioeconomic History Marital status: Spouse name: Not on file Number of children: 0 Years of education: Not on file Highest education level: Not on file Tobacco Use Smoking status: Former Smoker Packs/day: 0.25 Years: 10.00 Pack years: 2.50 Smokeless tobacco: Never Used Substance and Sexual Activity Alcohol use: Yes Comment: Alcoholic Drinks/day: occ Drug use: Yes Types: Marijuana Comment: Drug use: Yes. uses oil, 3-4x daily via inhalation. Social History Narrative She lives at home and is a former smoker. REVIEW OF SYSTEMS: General: negative for - night sweats, weight gain or weight loss Ophthalmic: negative for - decreased vision, double vision or loss of vision ENT: negative for - nasal congestion, oral lesions, sinus pain, earache, ear discharge, t innitus. Neck: negative for - neck pain, neck stiffness, swollen gland, thyroid enlargement. She had chronic neck pain. Respiratory: no cough, shortness of breath, wheezing, sputum production, hemoptysis. Cardiovascular: no chest pain, orthopnea, dyspnea on exertion Gastrointestinal: no jaundice, constipation, black or bloody stools. Genito-Urinary: She does not make any urine Musculoskeletal: negative for - joint stiffness, joint swelling or bone pain Neurological: negative for - behavioral changes, headaches, impaired coordination, loss of balance, tingling sensation, dizziness, seizure, memory loss or weakness Dermatological: negative for - mole changes, nail changes, skin lesion changes, skin discol oration. Hematological and Lymphatic: negative for - bleeding problems, blood clots, bruising, fatig ue, swollen lymph nodes. She has anemia of chronic renal disease. Endocrine: negative for thyroid disease, heat or cold intolerance, polyuria, polydipsia Psychiatric: negative for sleep disturbance, suicidal ideation, anxiety disorder, history of hallucinations. Positive for history of depression. VITAL SIGNS: Vitals: 11/23/19 1308 BP: 115/62 Pulse: 72 PHYSICAL EXAM: Vitals:reviewed CONSTITUTIONAL: Conversant, well developed, NAD EYES: Anicteric sclerae, no lid drag, no proptosis RESP: Normal effort, regular, even, unlabored rate CV: No peripheral edema, rate regular SKIN: [place], warm, dry without rash/lesion MS: ROM not limited, no digital cyanosis, normal gait NEURO: Conversant, A&O times 3 PSYCH: appropriate affect, speech and tone, judgement and insight intact Vascular:Incisions in distal upper arm are fully healed. Axillary wound now fully heale d. No residual wound remains. No drainage or erythema noted. Right sided tunneled catheter i n place. ASSESSMENT AND PLAN: Infection of previously ligated arteriovenous graft / Sepsis / End stage renal disease on h emodialysis - The patient will require a new AV access creation. Given her vein calibre, we discussed options of fistula verus graft creation. Given her history with her initial AVF, we have opted to place a graft. Will plan for a forearm loop graft. Risks of the procedure i nclude bleeding, infection, nerve damage, arterial occlusion, myocardial infarction, and darlin th. She understands and wishes to proceed. Signed consent obtained. Will have her scheduled at her convenience for right arm AVF creation. Case discussed with Dr. Pederson. Man Jeronimo PA-C Vascular Surgery [facility] umented in this encounter H&P Notes Man Jeronimo PA-C - 11/23/2019 1:00 PM PSTFormatting of this note might be different f rom the original. [facility] [address], [place] [address] History and Physical Examination REASON FOR EVALUATION / CHIEF COMPLAINT: Vascular Surgery follow up visit to discuss n ew access creation HISTORY OF PRESENT ILLNESS: The patient presents today for a Vascular Surgery follow up visit. She is well known to our service. The patient is39 y.o.femalewith significant past medical history of HTN and ESRDwho presented to [facility] ED with fever and chills with concern for infection of left arm AV graft. She initially had the left arm AV graft created using bovine carotid artery in une . The operation was complicated by wound dehiscence [...] 08/26 patient was emerg ently transferred to [facility] for severe bleeding from left axilla. She was taken to the OR for graft ligation. However, the graft was not removed and wound was closed. She underwent r emoval of graft and wound vac placement x 2 on 09/03/2019. She has been doing well since her last surgery. Her wound vacs are off and her wounds are fully healed. She denies any fever, chills, night sweats. She presents for follow up to discuss future AVF/AVG creation. PAST MEDICAL HISTORY: Past Medical History: Diagnosis Date Acid reflux disease Disorder of kidney and ureter unknown cause for renal failure. Diverticulitis 01/05/2019 Diverticulosis ESRD on peritoneal dialysis 10/28/2015 ESRD from [facility] on kidney biopsy showing global glomerulosclerosis. There was not enough talya pling for IF or EM. Serological workup with hepatitis panel, HIV testing, CRYSTAL, syphilis nega tive. She had normal C4 and minimally reduced C3 level. Free light chain ratio normal. Imagi ng with kidney ultrasound from 10/25/15 showed normal sized kidneys. She initiated CREATIVE DIRECTOR with PD 10/28/15. 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 Peritonitis associated with peritoneal dialysis 01/24/2017 Peritonitis due to infected peritoneal dialysis catheter 12/08/2018 Range of motion deficit left arm Renal insufficiency Secondary hyperparathyroidism Uremia 10/28/2015 PAST SURGICAL HISTORY: Past Surgical History: Procedure Laterality Date ABDOMEN SURGERY 10/27/2016 PD cath ARTERIAL BYPASS SURGRY AV FISTULA REPAIR N/A 08/26/2019 Procedure: REVISION LEFT AXILLARY AVG; WILL NEED C-ARM, OCCLUSION BALLOONS, VIABAHN STENTS ; Surgeon: Qasim Pederson MD; [place] [facility] [place] AV FISTULA REPAIR Left 09/03/2019 Procedure: Resection of left arm AV graft with wound vac placement; Surgeon: Lexi Posada; [place] [facility] [place] CATHETER REMOVAL 02/04/2019 Procedure: DIALYSIS CATHETER - REMOVAL; Surgeon: Qasim Pederson MD; Location: [facility] ; Service: Vascular; Laterality: N/A; Infected PD catheter removal DEBRIDEMENT Left 07/08/2019 Procedure: LEFT AXILLA WOUND DEBRIDEMENT, WASHOUT AND POSSIBLE WOUND VAC PLACEMENT; Surge on: Qasim Pederson MD; [place] [facility] [place] OTHER SURGICAL HISTORY Left 03/11/2019 AV FISTULA PLACEMENT - Procedure: AV FISTULA; Surgeon: Qasim Pederson MD; Location: [facility]; Service: Vascular; Laterality: Left; OTHER SURGICAL HISTORY HARDWARE PRESENT OTHER SURGICAL HISTORY Right 01/2019 chest wall OTHER SURGICAL HISTORY Left 05/06/2019 AV GRAFT CREATION - Procedure: AV GRAFT CREATION; Surgeon: Qasim Pederson MD; Location: [facility]; Service: Vascular; Laterality: Left; bovine carotid graft OTHER SURGICAL HISTORY Left 05/26/2019 WOUND VAC PLACEMENT/REPLACEMENT - Procedure: WOUND VAC - PLACEMENT - REPLACEMENT; Surgeon : Qasim Pederson MD; Location: [facility]; Service: Vascular; Laterality: Left; PERITONEAL CATHETER PLACEMENT/REMOVAL 10/28/2015 Procedure: LAPAROSCOPIC - PERITONEAL DIALYSIS CATH INSERTION; Surgeon: Mundo Ramos MD; Lo cation: [facility]; Service: Vascular; Laterality: N/A; UPPER GASTROINTESTINAL ENDOSCOPY 09/10/2017 Procedure: ESOPHAGOGASTRODUODENOSCOPY; Surgeon: Beena Peters MD; Location: [facility]; Service: Gastroenterology; Laterality: N/A; WISDOM TOOTH EXTRACTION SOCIAL HISTORY: Social History Socioeconomic History Marital status: Spouse name: Not on file Number of children: 0 Years of education: Not on file Highest education level: Not on file Tobacco Use Smoking status: Former Smoker Packs/day: 0.25 Years: 10.00 Pack years: 2.50 Smokeless tobacco: Never Used Substance and Sexual Activity Alcohol use: Yes Comment: Alcoholic Drinks/day: occ Drug use: Yes Types: Marijuana Comment: Drug use: Yes. uses oil, 3-4x daily via inhalation. Social History Narrative She lives at home and is a former smoker. REVIEW OF SYSTEMS: General: negative for - night sweats, weight gain or weight loss Ophthalmic: negative for - decreased vision, double vision or loss of vision ENT: negative for - nasal congestion, oral lesions, sinus pain, earache, ear discharge, t innitus. Neck: negative for - neck pain, neck stiffness, swollen gland, thyroid enlargement. She had chronic neck pain. Respiratory: no cough, shortness of breath, wheezing, sputum production, hemoptysis. Cardiovascular: no chest pain, orthopnea, dyspnea on exertion Gastrointestinal: no jaundice, constipation, black or bloody stools. Genito-Urinary: She does not make any urine Musculoskeletal: negative for - joint stiffness, joint swelling or bone pain Neurological: negative for - behavioral changes, headaches, impaired coordination, loss of balance, tingling sensation, dizziness, seizure, memory loss or weakness Dermatological: negative for - mole changes, nail changes, skin lesion changes, skin discol oration. Hematological and Lymphatic: negative for - bleeding problems, blood clots, bruising, fatig ue, swollen lymph nodes. She has anemia of chronic renal disease. Endocrine: negative for thyroid disease, heat or cold intolerance, polyuria, polydipsia Psychiatric: negative for sleep disturbance, suicidal ideation, anxiety disorder, history of hallucinations. Positive for history of depression. VITAL SIGNS: Vitals: 11/23/19 1308 BP: 115/62 Pulse: 72 PHYSICAL EXAM: Vitals:reviewed CONSTITUTIONAL: Conversant, well developed, NAD EYES: Anicteric sclerae, no lid drag, no proptosis RESP: Normal effort, regular, even, unlabored rate CV: No peripheral edema, rate regular SKIN: [place], warm, dry without rash/lesion MS: ROM not limited, no digital cyanosis, normal gait NEURO: Conversant, A&O times 3 PSYCH: appropriate affect, speech and tone, judgement and insight intact Vascular:Incisions in distal upper arm are fully healed. Axillary wound now fully heale d. No residual wound remains. No drainage or erythema noted. Right sided tunneled catheter i n place. ASSESSMENT AND PLAN: Infection of previously ligated arteriovenous graft / Sepsis / End stage renal disease on hemodialysis - The patient will require a new AV access creation. Given her vein calibre, lyudmila ny discussed options of fistula verus graft creation. Given her history with her initial AVF, we have opted to place a graft. Will plan for a forearm loop graft. Risks of the procedure include bleeding, infection, nerve damage, arterial occlusion, myocardial infarction, and de ath. She understands and wishes to proceed. Signed consent obtained. Will have her scheduled at her convenience for right arm AVF creation. Case discussed with Dr. Poi. Man Jeronimo PA-C Vascular Surgery documented in this encounter Plan of Treatment Not on filedocumented as of this encounter Visit Diagnoses + + | Diagnosis | + + | ESRD on dialysis (HCC) - Primary End stage renal disease | + + documented in this encounter
--- OUTSIDE RECORDS SUMMARY | ~2020-05-11 | XMS | Encounter Summary ---
Demographics + + + | Address | [address] | | | [place] [address] | + + + | Home Phone | | + + + | Preferred Language | Unknown | + + + | Marital Status | | + + + | Caodaism Affiliation | Unknown | + + + | Race | Unknown | + + + | Ethnic Group | Unknown | + + + Author + + + | Author | [facility] | | | and [place] | + + + | Organization | [facility] | | | and [place] | + + + | Address | Unknown | + + + | Phone | Unavailable | + + + Support + + + + + | Name | Relationship | Address | Phone | + + + + + | Lyubov Smalls | ECON | [place], [place] | | | | | [address] | | + + + + + | Lydia Palm | ECON | [place], [place] | | | | | [address] | | + + + + + | melinda METZ" | ECON | [place], [place] | | | [place] | | [address] | | + + + + + | Jose C Oconnor | ECON | [place] | | | | | [place] | | | | | [address] | | + + + + + Care Team Providers + +------+ + | Care Foot Specialist Name | Role | Phone | + [...] | | | | | | | End-stage | | | | | | | renal | | | | | | | disease | | | | | | | ([facility]) | | | | | | | bleeding | | | | | | | fistula | | | | | | | Procedures | | | | | | | REVISION | | | | | | | LEFT | | | | | | | AXILLARY | | | | | | | AVG; WILL | | | | | | | NEED C-ARM, | | | | | | | OCCLUSION | | | | | | | BALLOONS, | | | | | | | VIABAHN | | | | | | | STENTS | | | +--------+--------+ + + + + Encounter Details +--------+ + + + + | Date | Type | Department | Care Team | Description | +--------+ + + + + | 08/26/ | Hospital | [facility] | PoQasim de la rosa MD | End-stage renal | | 2019 - | Encounter | [facility] | [address] | disease ([facility]) | | | | INTENSIVE CARE UNIT | [place], [place] | (Primary Dx); | | 08/28/ | | [address] | [id number] | Bleeding from | | 2019 | | [place], [place] | | dialysis shunt, | | | | [address] | Frances Rush DO | initial encounter | | | | [phone] | [address] | ([facility]); AV graft | | | | | [place] [address] | malfunction, initial | | | | | [phone] | encounter ([facility]); | | | | | | Gastroesophageal | | | | | [place] MD | reflux disease | | | | | [address] | without esophagitis; | | | | | [place] [address] | Hyperphosphatemia; | | | | | [phone] | Leukocytosis, | | | | | | unspecified type; | | | | | Alyce Sparks MD | S/P arteriovenous | | | | | [address] | (AV) graft repair; | | | | | [place] [address] | Shock (HCC); Wound, | | | | | [phone] | surgical, | | | | | | nonhealing, initial | | | | | | encounter; Anemia in | | | | | | ESRD (end-stage | | | | | | renal disease) | | | | | | (HCC); Hyperkalemia; | | | | | | At high risk for | | | | | | electrolyte | | | | | | imbalance | +--------+ + + + + Social [...] + + + | Blood Pressure | 115/75 | 08/28/2019 2:00 PM | | | | | PDT | | + + + + + | Pulse | 73 | 08/28/2019 2:00 PM | | | | | PDT | | + + + + + | Temperature | 37.1 C (98.8 F) | 08/28/2019 8:00 AM | | | | | PDT | | + + + + + | Respiratory Rate | 20 | 08/28/2019 8:00 AM | | | | | PDT | | + + + + + | Oxygen Saturation | 97% | 08/28/2019 2:00 PM | | | | | PDT | | + + + + + | Inhaled Oxygen | - | - | | | Concentration | | | | + + + + + | Weight | 87.2 kg (192 lb 3.9 | 08/28/2019 8:00 AM | | | | oz) | PDT | | + + + + + | Height | 157.5 cm (5' 2") | 08/26/2019 8:00 PM | | | | | PDT | | + + + + + | Body Mass Index | 35.16 | 08/26/2019 8:00 PM | | | | | PDT | | + + + + + documented in this encounter Functional [...] + + documented as of this encounter Discharge Summaries Allison Mane ARNP - 08/28/2019 3:43 PM PDTFormatting of this note might be differ ent from the original. Physician Discharge Summary Patient ID: Ramona Oconnor [id number] 39 y.o. 1980 Admit date: 08/26/2019 Discharge date and time: August 28, 2019 Admitting Physician: Qasim Pederson MD Discharge Physician: BALJIT Cheng Admission Diagnoses: End-stage renal disease (HCC) [N18.6] Discharge Diagnoses: ESRD, complications with axillary AV graft, now resolving Admission Condition: fair Discharged Condition: stable Indication for Admission: active bleeding Hospital Course: 08/26: ligation of left axillary AV graft due to bleeding 08/27: Admitted to ICU for hemodynamic monitoring post-op. 08/28: Hemodynamically stable, H/H stable, HD done. Ready for discharge per Drs. Dacia Chi Consults: pulmonary/intensive care, nephrology and vascular surgery Significant Diagnostic Studies: none Treatments: surgery: ligation of left axillary AV graft; hemodialysis Discharge Exam: BP 115/75 | Pulse 73 | Temp 37.1 C (98.8 F) (Oral) | Resp 20 | Ht 1.575 m (5' 2") | Wt 87.2 kg (192 lb 3.9 oz) | LMP 08/10/2019 | SpO2 97% | BMI 35.16 kg/m General Appearance: Alert, cooperative, no distress, appears stated age Head: Normocephalic, without obvious abnormality, atraumatic Eyes: PERRL, conjunctiva/corneas clear, EOM's intact, fundi benign, both eyes Ears: Normal TM's and external ear canals, both ears Nose: Nares normal, septum midline, mucosa normal, no drainage or sinus tenderness Throat: Lips, mucosa, and tongue normal; teeth and gums normal Neck: Supple, symmetrical, trachea midline, no adenopathy; thyroid: no enlargement/tenderness/nodules; no carotid bruit or JVD Back: Symmetric, no curvature, ROM normal Lungs: Clear to auscultation bilaterally, respirations unlabored Chest Wall: No tenderness or deformity Heart: Regular rate and rhythm, S1 and S2 normal Abdomen: Soft, non-tender, bowel sounds active all four quadrants Extremities: Extremities normal, atraumatic, no cyanosis or edema Pulses: 2+ and symmetric all extremities Skin: Skin color, texture, turgor normal, no rashes or lesions; left axillary wound is dr essed well and dressing is clean, dry and intact. Left chest tunneled hemodialysis catheter is clean and dry with dressing intact. Neurologic: Alert, oriented, interactive, normal strength, follows commands with all 4 ex tremities Disposition: home Patient Instructions: Discharge Medications New Medications Details clindamycin 300 MG capsule Take 1 capsule by mouth every 6 hours for 10 days. Indications: Wound Infection After Surg alaina aka: CLEOCIN Unchanged Medications Details omeprazole 20 mg capsule Take 20 mg by mouth every morning (before breakfast). aka: priLOSEC ondansetron 4 mg tablet Take 4 mg by mouth every 6 hours as needed. aka: ZOFRAN promethazine 25 mg tablet Take 25 mg by mouth every 6 (six) hours as needed for Nausea. aka: PHENERGAN sevelamer carbonate 800 mg tablet Take 1,600-2,400 mg by mouth See Admin Instructions. Take two tablets by mouth once daily in the morning, then two tablets by mouth once daily in the afternoon, then three tablets by mouth once daily in the evening with meals. aka: RENVELA Discontinued Medications HYDROcodone-acetaminophen 5-325 mg per tablet aka: NORCO oxyCODONE-acetaminophen 5-325 mg per tablet aka: PERCOCET Activity: activity as tolerated Diet: renal diet Wound Care: keep wound and dialysis catheter sites clean and dry Follow-up with Dr. Pederson in 1 week. Signed: Allison Mane NP 08/28/2019 15:43 documented in this encounter Discharge Instructions Instructions Man Jeronimo PA-C - 08/28/2019Change dressings as they become wet. Sutures will remain for about 2 weeks and will be removed in clinic. Vascular office will contact abad smith this week for follow up appointment. It is VERY important to follow up with Vascular offi ce. Please continue taking the clindamycin every [address] Pederson will see you in clinic next week and advise you regarding further antibiotics. Resume your normal dialysis schedule. Please keep your dialysis catheter clean and dry, and follow all instructions previously gi oh to you regarding care of this line. documented in this encounter Medications at Time [...] mg by mouth | | 0 | 08/23/20 | | | (ZOFRAN) 4 mg tablet | every 6 hours as | | | 19 | | | | needed. | | | | | + + [...] + + + +---------+ + + | clindamycin | Take 1 capsule by | 40 | 0 | 08/28/20 | | | (CLEOCIN) 300 MG | mouth every 6 hours | capsule | | 19 | 9 | | capsuleIndications: | for 10 days. | | | | | | Post-Operative Wound | Indications: Wound | | | | | | Infection | Infection After | | | | | | | Surgery | | | | | + + [...] encounter Progress Notes Man Jeronimo PA-C - 08/28/2019 9:33 AM PDTFormatting of this note might be different f rom the original. [facility] Service: Vascular Surgery Progress Note Post-Op Day: 1 SUBJECTIVE Patient Summary: The patient is a 39 y.o. female with significant past medical histor y of ESRD who presented to [facility] with profuse bleeding from her left axillary AVG af ter wound packing was removed. Per emergency department physician report, the patient had ab out 250ml blood loss, venous bleeding. She received 2 units PRBC transfusion and 1Liter susana talloid. She has been hemodynamincally stable. Patient transferred to [facility] for emergency janine viviana and ligation of AVG. Events Overnight: No acute events. POD 2. Hemodynamically stable. OBJECTIVE Vital Signs: Vitals: 08/28/19 0645 BP: 133/58 Pulse: 76 Resp: Temp: Physical Exam Constitutional: Well nourished, no signs of distress HENT: Non icteric sclerae, oropharynx clear. Normocephalic and atraumatic. Cardiovascular: Normal rate, regular rhythm. Pulmonary/Chest: No respiratory distress. Abdominal: Soft. No abdominal distension or tenderness. Musculoskeletal: Normal range of motion. Extremities: No cyanosis or clubbing. Neurological: She is alert and oriented. VASCULAR: Incisional dressing clean and dry. Mild erythema surrounding wound. Dressings rep laced. RIJV tunneled hemodialysis catheter in place. Labs: Lab Results Component Value Date WBC 9.89 08/28/2019 HGB 11.2 (L) 08/28/2019 HCT 33.7 (L) 08/28/2019 PLT 172 08/28/2019 CHOL 116 01/05/2019 TRIG 158 (H) 01/05/2019 HDL 45 01/05/2019 ALT <7 (L) 08/10/2019 AST 13 08/10/2019 NA 141 08/28/2019 K 5.0 (H) 08/28/2019 CL 103 08/28/2019 CREA 6.04 (H) 08/28/2019 BUN 20 08/28/2019 CO2 29 08/28/2019 TSH 3.40 10/27/2015 INR 1.1 01/05/2019 GLUF 71 05/26/2019 PROBLEM LIST Patient Active Problem List Diagnosis Date Noted POA Wound, surgical, nonhealing, initial encounter 08/26/2019 Yes AV graft malfunction, initial encounter 08/26/2019 Yes S/P arteriovenous (AV) graft repair 08/26/2019 No Leukocytosis 08/26/2019 Yes Shock 08/26/2019 No Bleeding from dialysis shunt 08/26/2019 Yes Obesity (BMI 30-39.9) 08/26/2019 Yes Infection of arteriovenous dialysis fistula, subsequent encounter 08/25/2019 Unknown ESRD on hemodialysis 08/25/2019 Unknown ESRD on dialysis 07/06/2019 Unknown Wound infection after surgery 07/06/2019 Unknown Anemia in ESRD (end-stage renal disease) 06/13/2019 Unknown Secondary hyperparathyroidism 06/13/2019 Unknown Peritonitis associated with peritoneal dialysis 02/15/2019 Unknown End-stage renal disease 02/01/2019 Yes Abnormal EKG 01/05/2019 Unknown Diverticulitis 01/05/2019 Unknown Hyperphosphatemia 01/05/2019 Yes Cold intolerance 04/03/2018 Unknown GERD with esophagitis 03/17/2018 Unknown Cyst of right ovary 09/07/2017 Unknown Gastroesophageal reflux disease without esophagitis 01/23/2017 Yes Ovarian mass, right 10/25/2015 Unknown ASSESSMENT & PLAN Left axillary AVG bleeding / End stage renal disease - POD 2. Hemodynamically stable and ne urologically intact. Stable for transfer out of ICU. Continue to monitor wound. Will restart abx PO as we would like to have some suppressive therapy given the graft is still in her ar m but has been ligated. Continue to use HD catheter for access. Transfer out of ICU today. V ascular will continue to follow. Code Status: Full code Man Jeronimo PA-C Vascular Surgery Lashawn Concepcion ARNP - 08/28/2019 3:45 AM PDTFormatting of this note might be different from the ave rao. [facility] Service: Knot Bumper Progress Note Ramona Oconnor 39 y.o. Hospital Day: LOS: 2 days Post-Op Day: 1 Day Post-Op Consulting Physicians SUBJECTIVE Patient Summary: Per Lashawn Jansen's H&P 08/27: "The patient is a 39 y.o. female with significant past medical history of ESRD on HD MWF, a nd a nonhealing surgical wound from a L axillary AV graft placement in April,. The patie nt has been followed by the [facility] wound care clinic. She presented to [facility] ED from [facility] wound care clinic with profuse bleeding of her L axilla after her wound packing was remov ed. Per report EBL was 250 cc of venous blood. She received 1 L crystalloid and 2 units PRBC prior to arrival at [facility] and remained hemodynamically stable. Patient was transferred to [facility] for ligation of the AVG with Dr. Pederson. Interval history: In the OR, the patient had episodes of hypotension with SBP in the 50's while under general anesthesia. EBL for the procedure was 10 ml. Patient received an additional 2.2 L NS intrao p and a stat ECHO was obtained which was normal with LVEF 65%. ICU was consulted to monitor the patient overnight due to hypotension." ICU Timeline: 08/27: Admitted to ICU for hemodynamic monitoring post-op. 08/28: Hemodynamically stable, H/H stable, HD done Events Overnight: No acute overnight events SCHEDULED MEDICATIONS Reviewed. OBJECTIVE VITAL SIGNS Temp: [36.5 C (97.7 F)-37.4 C (99.3 F)] 37.4 C (99.3 F) Pulse: [58-105] 86 Resp: [6-22] 17 BP: (99-176)/(56-102) 133/67 Intake/Output Summary (Last 24 hours) at 08/28/2019 0353 Last data filed at 08/28/2019 0000 Gross per 24 hour Intake 390 ml Output 1200 ml Net -810 ml EXAM GEN: awake, alert, oriented x3, NAD NEURO: PERRLA, EOMI, no facial asymmetry, moves all extremities well to commands GCS: 15 HEENT: sclerae clear, nonicteric, oral mmm, pink NECK: supple, trachea midline CV: RRR, S1/S2, no murmur, rub or gallop, peripheral pulses palpable, cap refill brisk, R s ubclavian tunneled HD catheter LUNGS: clear b/l, no wheezing, rales or rhonchi, symmetric chest expansion, even/unlabored respirations on oxymask ABD: soft, round, nondistended, nontender to palpation, no masses, bowel tones active EXTR: no edema, clubbing or cyanosis. L axillary wound and surgical site with dry dressing and tegaderm CDI SKIN: warm, dry, no rash or mottling; no e/o skin breakdown over the occiput, scapulae, elb ows, sacrum or heels LINES/TUBES: R subclavian tunneled HD cath, PIV Diagnostic Studies: Available labs and images have been reviewed and will be addressed as indicated in the assessment and plan. PROBLEM LIST Principal Problem: Bleeding from dialysis shunt Active Problems: End-stage renal disease Gastroesophageal reflux disease without esophagitis Hyperphosphatemia Wound, surgical, nonhealing, initial encounter AV graft malfunction, initial encounter S/P arteriovenous (AV) graft repair Leukocytosis Shock Obesity (BMI 30-39.9) Resolved Problems: * No resolved hospital problems. * ASSESSMENT & PLAN NEURO: Non-focal neuro exam CAM-ICU assessment every shift CV: Shock. Resolved. Most likely secondary to general anesthesia. Could also have septic com ponent as patient has nonhealing surgical wound. Patient was adequately resuscitated followi ng acute blood loss. EBL 250. Given a total of 2 u PRBC and 3.2 L crystalloids. H/H 13.2/41. 3. ECHO done was normal with LVEF of 65%. Resolved. Will continue to monitor. MAP goal > 65. See ID. NSR on telemetry PULM: No acute issues. Titrate O2 to maintain sats > 92% GI/NUTRITION: Advance diet as tolerated to renal diet. Nausea and Vomiting. Patient has episodes of vomiting at baseline at home. Improved with scheduled Phenergan home dose. Zofran PRN. GERD. Continue home PPI. Obesity. BMI 36. Which complicates hospital course RENAL/LYTES: ESRD. Was on PD but switched to HD in January,. Now on HD every M,W,F through tunnele d HD cath. Last HD 08/25. See Dr. Chi following, DENITRATOR per nephrology. 1.5 L fluid restricti on in 24 hours per Nephrology. Renally dose medication and avoid nephrotoxins Monitor I/Os Monitor electrolytes. Hyperphosphatemia. Resolved. Continue home dose of Renvela once patient eating. Hyperkalemia. DENITRATOR per Nephrology ID: Patient with nonhealing AVG wound. Followed by [facility] wound care clinic. Patient was not o n antibiotics outpatient. Leukocytosis. WBC 29 on admission. Denies fever and chills outpatient. Patient received dose of cefazolin in OR. Along with fluid resuscitation. Currently afebrile, normotensive. O btain BC x 2. Lactic acid and Procalcitonin normal. Will hold off on further antibiotics at this time. Follow culture results. HEME: Acute blood loss from AVG wound site. EBL 250 ml. Given 2 u PRBC. Monitor surgical site for signs of bleeding. Monitor CBC daily. ENDO: No acute issues. Monitor BG and treat for BG > 180 x 2. MUSC/SKIN: S/p ligation of L axillary AV graft by Dr. Pederson. Care per vascular surgery Non healing L axillary AVG site. Wound care per vascular surgery. No acute issues Early mobility as tolerated Turn and assess skin per protocol PROPHYLAXIS: Stress ulcer prophylaxis: Pantoprazole home dose DVT prophylaxis: SCD's while in bed VAP bundle: N/A Disposition: Patient stable for transfer out of ICU today. Code Status: Full Code *Please bill 30 minutes of critical care time spent evaluating the patient, reviewing the d andrei and formulating a plan exclusive of all other procedures. BALJIT Guido 08/28/2019 Amrita Lynne RN - 08/27/2019 6:40 PM PDT12 hour chart check complete. Amrita Steele RN Man Jha PA- C - 08/27/2019 12:31 PM PDT [facility] Service: Vascular Surgery Progress Note Post-Op Day: 1 SUBJECTIVE Patient Summary: The patient is a 39 y.o. female with significant past medical histor y of ESRD who presented to [facility] with profuse bleeding from her left axillary AVG af ter wound packing was removed. Per emergency department physician report, the patient had ab out 250ml blood loss, venous bleeding. She received 2 units PRBC transfusion and 1Liter susana talloid. She has been hemodynamincally stable. Patient transferred to [facility] for emergency janine viviana and ligation of AVG. Events Overnight: No acute events. Hemodynamically stable. Stable for transfer out of ICU. OBJECTIVE Vital Signs: Vitals: 08/27/19 1200 BP: 139/62 Pulse: 74 Resp: Temp: Physical Exam Constitutional: Well nourished, no signs of distress HENT: Non icteric sclerae, oropharynx clear. Normocephalic and atraumatic. Cardiovascular: Normal rate, regular rhythm. Pulmonary/Chest: No respiratory distress. Abdominal: Soft. No abdominal distension or tenderness. Musculoskeletal: Normal range of motion. Extremities: No cyanosis or clubbing. Neurological: She is alert and oriented. VASCULAR: Incisional dressing clean and dry. Mild erythema surrounding wound. Labs: Lab Results Component Value Date WBC 13.66 (H) 08/27/2019 HGB 11.9 08/27/2019 HCT 36.1 08/27/2019 PLT 190 08/27/2019 CHOL 116 01/05/2019 TRIG 158 (H) 01/05/2019 HDL 45 01/05/2019 ALT <7 (L) 08/10/2019 AST 13 08/10/2019 NA 140 08/27/2019 K 6.5 (HH) 08/27/2019 CL 104 08/27/2019 CREA 8.56 (H) 08/27/2019 BUN 30 (H) 08/27/2019 CO2 25 08/27/2019 TSH 3.40 10/27/2015 INR 1.1 01/05/2019 GLUF 71 05/26/2019 PROBLEM LIST Patient Active Problem List Diagnosis Date Noted POA Wound, surgical, nonhealing, initial encounter 08/26/2019 Yes AV graft malfunction, initial encounter 08/26/2019 Yes S/P arteriovenous (AV) graft repair 08/26/2019 No Leukocytosis 08/26/2019 Yes Shock 08/26/2019 No Bleeding from dialysis shunt 08/26/2019 Yes Obesity (BMI 30-39.9) 08/26/2019 Yes Infection of arteriovenous dialysis fistula, subsequent encounter 08/25/2019 Unknown ESRD on hemodialysis 08/25/2019 Unknown ESRD on dialysis 07/06/2019 Unknown Wound infection after surgery 07/06/2019 Unknown Anemia in ESRD (end-stage renal disease) 06/13/2019 Unknown Secondary hyperparathyroidism 06/13/2019 Unknown Peritonitis associated with peritoneal dialysis 02/15/2019 Unknown End-stage renal disease 02/01/2019 Yes Abnormal EKG 01/05/2019 Unknown Diverticulitis 01/05/2019 Unknown Hyperphosphatemia 01/05/2019 Yes Cold intolerance 04/03/2018 Unknown GERD with esophagitis 03/17/2018 Unknown Cyst of right ovary 09/07/2017 Unknown Gastroesophageal reflux disease without esophagitis 01/23/2017 Yes Ovarian mass, right 10/25/2015 Unknown ASSESSMENT & PLAN Left axillary AVG bleeding / End stage renal disease - POD 1. Hemodynamically stable and ne urologically intact. Stable for transfer out of ICU. Continue to monitor wound. Will need to stay on abx IV and then transition to PO. Continue to use HD catheter for access. Her CVC h ad some issues earlier and may require exchange. Code Status: Full code Man Jeronimo PA-C Vascular Surgery Lashawn Concepcion ARNP - 08/27/2019 12:44 AM PDTFormatting of this note might be different from the [facility] Knot Bumper Progress Note Ramona Oconnor 39 y.o. Hospital Day: LOS: 1 day Post-Op Day: 1 Day Post-Op Consulting Physicians SUBJECTIVE Patient Summary: Per Lashawn Jansen's H&P 08/27: "The patient is a 39 y.o. female with significant past medical history of ESRD on HD MWF, a nd a nonhealing surgical wound from a L axillary AV graft placement in April,. The patie nt has been followed by the [facility] wound care clinic. She presented to [facility] ED from [facility] wound care clinic with profuse bleeding of her L axilla after her wound packing was remov ed. Per report EBL was 250 cc of venous blood. She received 1 L crystalloid and 2 units PRBC prior to arrival at [facility] and remained hemodynamically stable. Patient was transferred to [facility] for ligation of the AVG with Dr. Pederson. Interval history: In the OR, the patient had episodes of hypotension with SBP in the 50's while under general anesthesia. EBL for the procedure was 10 ml. Patient received an additional 2.2 L NS intrao p and a stat ECHO was obtained which was normal with LVEF 65%. ICU was consulted to monitor the patient overnight due to hypotension." ICU Timeline: 08/27: Admitted to ICU for hemodynamic monitoring post-op. Events Overnight: No acute overnight events. Hemodynamically stable, no evidence of c ontinued bleeding. SCHEDULED MEDICATIONS Reviewed. OBJECTIVE VITAL SIGNS Temp: [36.7 C (98.1 F)-36.8 C (98.3 F)] 36.8 C (98.2 F) Pulse: [56-80] 60 Resp: [8-22] 19 BP: (118-143)/(57-84) 118/57 Arterial Line BP: (91-142)/(63-89) 91/69 Intake/Output Summary (Last 24 hours) at 08/27/2019 0044 Last data filed at 08/26/2019 1858 Gross per 24 hour Intake 2200 ml Output Net 2200 ml EXAM GEN: awake, alert, oriented x3, NAD NEURO: PERRLA, EOMI, no facial asymmetry, moves all extremities well to commands GCS: 15 HEENT: sclerae clear, nonicteric, oral mmm, pink NECK: supple, trachea midline CV: RRR, S1/S2, no murmur, rub or gallop, peripheral pulses palpable, cap refill brisk, R s ubclavian tunneled HD catheter LUNGS: clear b/l, no wheezing, rales or rhonchi, symmetric chest expansion, even/unlabored respirations on oxymask ABD: soft, round, nondistended, nontender to palpation, no masses, bowel tones active EXTR: no edema, clubbing or cyanosis. L axillary wound and surgical site with dry dressing and tegaderm CDI SKIN: warm, dry, no rash or mottling; no e/o skin breakdown over the occiput, scapulae, elb ows, sacrum or heels LINES/TUBES: R subclavian tunneled HD cath, PIV Diagnostic Studies: Available labs and images have been reviewed and will be addressed as indicated in the assessment and plan. PROBLEM LIST Principal Problem: Bleeding from dialysis shunt Active Problems: End-stage renal disease Gastroesophageal reflux disease without esophagitis Hyperphosphatemia Wound, surgical, nonhealing, initial encounter AV graft malfunction, initial encounter S/P arteriovenous (AV) graft repair Leukocytosis Shock Obesity (BMI 30-39.9) Resolved Problems: * No resolved hospital problems. * ASSESSMENT & PLAN NEURO: Non-focal neuro exam CAM-ICU assessment every shift CV: Shock. Resolved. Most likely secondary to general anesthesia. Could also have septic com ponent as patient has nonhealing surgical wound. Patient was adequately resuscitated followi ng acute blood loss. EBL 250. Given a total of 2 u PRBC and 3.2 L crystalloids. H/H 13.2/41. 3. ECHO done was normal with LVEF of 65%. Resolved. Will continue to monitor. MAP goal > 65. See ID. NSR on telemetry PULM: No acute issues. Titrate O2 to maintain sats > 92% GI/NUTRITION: Advance diet as tolerated to renal diet. Nausea and Vomiting. Patient has episodes of vomiting at baseline at home. Takes Phenerg an scheduled at home. Zofran PRN. GERD. Continue home PPI. Obesity. BMI 36. Which complicates hospital course RENAL/LYTES: ESRD. Was on PD but switched to HD in January,. Now on HD every M,W,F through tunnele d HD cath. Last HD 08/25. See Dr. Chi outpatient. Will consult nephrology in AM no urgent need for DENITRATOR overnight. Renally dose medication and avoid nephrotoxins Monitor I/Os Monitor electrolytes. Hyperphosphatemia. Continue home dose of Renvela. ID: Patient with nonhealing AVG wound. Followed by [facility] wound care clinic. Patient was not o n antibiotics outpatient. Leukocytosis. WBC 29 on admission. Denies fever and chills outpatient. Patient received dose of cefazolin in OR. Along with fluid resuscitation. Currently afebrile, normotensive. O btain BC x 2. Lactic acid and Procalcitonin normal. Will hold off on further antibiotics at this time. Follow culture results. HEME: Acute blood loss from AVG wound site. EBL 250 ml. Given 2 u PRBC. Monitor surgical site for signs of bleeding. Monitor CBC daily. ENDO: No acute issues. Monitor BG and treat for BG > 180 x 2. MUSC/SKIN: S/p ligation of L axillary AV graft by Dr. Pederson. Care per vascular surgery Non healing L axillary AVG site. Wound care per vascular surgery. No acute issues Early mobility as tolerated Turn and assess skin per protocol PROPHYLAXIS: Stress ulcer prophylaxis: Pantoprazole home dose DVT prophylaxis: SCD's while in bed VAP bundle: N/A Disposition: Patient stable for transfer out of ICU today. Code Status: Full Code *Please bill 30 minutes of critical care time spent evaluating the patient, reviewing the d andrei and formulating a plan exclusive of all other procedures. BALJIT Guido 08/27/2019 amira Clark RN - 08/26/2019 6:50 PM PDTHemodialysis catheter accessed for IV fluids on the venous (blue) port. Anesthesia stated to this RN that life flight had accessed port in rout e to [facility]. This RN started PIV to right upper arm/AC area when patient brought to pacu. This info reported to RIGGING ENGINEER. 8: 33 PM PDTdocumented in this encounter H&P Notes Lashawn Jansen ARNP - 08/26/2019 8:47 PM PDTFormatting of this note might be di fferent from the original. [facility] Service: Knot Bumper Admission History & Physical Ramona Oconnor 39 y.o. Date of Admission: 08/26/2019 Requesting Physician: Dr. Pederson, Vascular Surery Indication for ICU Admission: Hypotension History Obtained From: patient, mother, chart review CHIEF COMPLAINT: Venous bleed from nonhealing surgical wound HISTORY OF PRESENT ILLNESS The patient is a 39 y.o. female with significant past medical history of ESRD on HD MWF, an d a nonhealing surgical wound from a L axillary AV graft placement in April,. The patien t has been followed by the [facility] wound care clinic. She presented to [facility] ED from th e wound care clinic with profuse bleeding of her L axilla after her wound packing was remove d. Per report EBL was 250 cc of venous blood. She received 1 L crystalloid and 2 units PRBC prior to arrival at [facility] and remained hemodynamically stable. Patient was transferred to [facility] for ligation of the AVG with Dr. Pederson. Interval history: In the OR, the patient had episodes of hypotension with SBP in the 50's while under general anesthesia. EBL for the procedure was 10 ml. Patient received an additional 2.2 L NS intrao p and a stat ECHO was obtained which was normal with LVEF 65%. ICU was consulted to monitor the patient overnight due to hypotension. Active comorbid conditions include: - hypertension - diverticulitis - diverticular disease - GERD - obesity; BMI (30-39) REVIEW OF SYSTEMS Review of Systems Constitutional: Negative for chills, fever and malaise/fatigue. Respiratory: Negative for cough, sputum production and shortness of breath. Cardiovascular: Negative for chest pain, palpitations and leg swelling. Gastrointestinal: Positive for abdominal pain and vomiting. PAST MEDICAL HISTORY Past Medical History: Diagnosis Date Acid reflux [...] 10/25/15 showed normal sized kidneys. She initiated DENITRATOR with PD 10/28/15. 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 Peritonitis associated with peritoneal dialysis (HCC) 01/24/2017 Peritonitis due to infected peritoneal dialysis catheter (HCC) 12/08/2018 Range of motion deficit left arm Renal insufficiency Secondary hyperparathyroidism (HCC) Uremia 10/28/2015 PAST SURGICAL HISTORY Past Surgical History: Procedure Laterality Date ABDOMEN SURGERY 10/27/2016 PD cath ARTERIAL BYPASS SURGRY CATHETER REMOVAL 02/04/2019 Procedure: DIALYSIS CATHETER - REMOVAL; Surgeon: Qasim Pederson MD; Location: [facility] MAIN OR ; Service: Vascular; Laterality: N/A; Infected PD catheter removal DEBRIDEMENT Left 07/08/2019 Procedure: LEFT AXILLA WOUND DEBRIDEMENT, WASHOUT AND POSSIBLE WOUND VAC PLACEMENT; Surge on: Qasim Pederson MD; Location: [facility] MAIN OR OTHER SURGICAL HISTORY Left 03/11/2019 AV FISTULA PLACEMENT - Procedure: AV FISTULA; Surgeon: Qasim Pederson MD; Location: [facility]; Service: Vascular; Laterality: Left; OTHER SURGICAL HISTORY HARDWARE PRESENT OTHER SURGICAL HISTORY Right 01/2019 chest wall OTHER SURGICAL HISTORY Left 05/06/2019 AV GRAFT CREATION - Procedure: AV GRAFT CREATION; Surgeon: Qasim Pederson MD; Location: [facility] MAIN OR; Service: Vascular; Laterality: Left; bovine carotid graft OTHER SURGICAL HISTORY Left 05/26/2019 WOUND VAC PLACEMENT/REPLACEMENT - Procedure: WOUND VAC - PLACEMENT - REPLACEMENT; Surgeon : Qasim Pederson MD; Location: [facility] MAIN OR; Service: Vascular; Laterality: Left; PERITONEAL CATHETER PLACEMENT/REMOVAL 10/28/2015 Procedure: LAPAROSCOPIC - PERITONEAL DIALYSIS CATH INSERTION; Surgeon: Mundo Ramos MD; Lo cation: [facility] MAIN OR; Service: Vascular; Laterality: N/A; UPPER GASTROINTESTINAL ENDOSCOPY 09/10/2017 Procedure: ESOPHAGOGASTRODUODENOSCOPY; Surgeon: Beena Peters MD; Location: [facility] ENDOSCOP Y; Service: Gastroenterology; Laterality: N/A; WISDOM TOOTH EXTRACTION ALLERGIES Allergies Allergen Reactions Adhesive & Tape Itching MEDICATIONS PRIOR TO ADMISSION Prior to Admission medications Medication Sig Start Date End Date Taking? Authorizing Provider HYDROcodone-acetaminophen (NORCO) 5-325 mg per tablet Take 1 tablet by mouth every 4 hours as needed for Pain. 07/08/19 Man Jeronimo PA-C omeprazole (PRILOSEC) 20 mg capsule Take 20 mg by mouth every morning (before breakfast). Historical Provider, ondansetron (ZOFRAN) 4 mg tablet Take 4 mg by mouth every 6 hours as needed. 08/23/19 Yes Historical Provider, oxyCODONE-acetaminophen (PERCOCET) 5-325 mg per tablet Take 1 tablet by mouth every 6 hours as needed. 05/26/19 Yes Historical Provider, promethazine (PHENERGAN) 25 mg tablet Take 25 mg by mouth every 6 (six) hours as needed for Nausea. Historical Provider, sevelamer carbonate (RENVELA) 800 mg tablet Take 1,600-2,400 mg by mouth See Admin Instruct ions. Take two tablets by mouth once daily in the morning, then two tablets by mouth once da caesar in the afternoon, then three tablets by mouth once daily in the evening with meals. H istorical Provider, FAMILY HISTORY OF SIGNIFICANCE Family History Problem Relation Age of Onset Cancer Maternal Grandmother breast ca Kidney disease Paternal Grandfather renal falure Other (see comment) Mother Other (see comments) - healthy Diabetes Father Breast cancer Maternal Grandmother Malig hypertherm Neg Hx SOCIAL HISTORY Social History Socioeconomic History Marital status: Spouse name: Not on file Number of children: 0 Years of education: Not on file Highest education level: Not on file Social Needs Financial resource strain: Not on file Food insecurity - worry: Not on file Food insecurity - inability: Not on file Transportation needs - medical: Not on file Transportation needs - non-medical: Not on file Occupational History Not on file Tobacco Use Smoking status: Former Smoker Packs/day: 0.25 Years: 10.00 Pack years: 2.50 Smokeless tobacco: Never Used Substance and Sexual Activity Alcohol use: No Comment: Alcoholic Drinks/day: occ Drug use: Yes Types: Marijuana Comment: Drug use: Yes. uses oil, 3-4x daily via inhalation. Sexual activity: Not on file Other Topics Concern Not on file Social History Narrative She lives at home and is a former smoker. PHYSICAL EXAM VITAL SIGNS Temp: [36.7 C (98.1 F)-36.8 C (98.3 F)] 36.8 C (98.2 F) Pulse: [56-80] 61 Resp: [8-20] 12 BP: (122-143)/(71-84) 141/84 Arterial Line BP: (118-142)/(63-86) 123/86 EXAM GEN: awake, lethargic, oriented x3, vomiting NEURO: PERRLA, EOMI, no facial asymmetry, moves all extremities well to commands HEENT: sclerae clear, nonicteric, oral mmm, pink NECK: supple, trachea midline CV: RRR, S1/S2, no murmur, rub or gallop, peripheral pulses palpable, cap refill brisk, R s ubclavian tunneled HD catheter LUNGS: clear b/l, no wheezing, rales or rhonchi, symmetric chest expansion, even/unlabored respirations on oxymask ABD: soft, round, nondistended, nontender to palpation, no masses, bowel tones active EXTR: no edema, clubbing or cyanosis. L axillary wound and surgical site with dry dressing and tegaderm CDI SKIN: warm, dry, no rash or mottling; no e/o skin breakdown over the occiput, scapulae, elb ows, sacrum or heels LINES/TUBES: R subclavian tunneled HD cath, R rad Art, PIV Diagnostic Studies: Available labs and images have been reviewed and will be addressed as indicated in the assessment and plan. PROBLEM LIST Principal Problem: End-stage renal disease Active Problems: Gastroesophageal reflux disease without esophagitis Hyperphosphatemia Wound, surgical, nonhealing, initial encounter AV graft malfunction, initial encounter S/P arteriovenous (AV) graft repair Leukocytosis Shock Resolved Problems: * No resolved hospital problems. * ASSESSMENT & PLAN NEURO: Non-focal neuro exam CAM-ICU assessment every shift CV: Shock. Most likely secondary to general anesthesia. Could also have septic component as patient has nonhealing surgical wound. Patient was adequately resuscitated following acute b lood loss. EBL 250. Given a total of 2 u PRBC and 3.2 L crystalloids. H/H 13.2/41.3. ECHO do ne was normal with LVEF of 65%. Resolved. Will continue to monitor. MAP goal > 65. See ID. NSR on telemetry PULM: No acute issues. Titrate O2 to maintain sats > 92% GI/NUTRITION: Advance diet as tolerated to renal diet. Nausea and Vomiting. Patient has episodes at baseline at home. Takes PO Zofran and Phene rgan at home. Will continue these PRN IV while in hospital. GERD. Continue home PPI. Obesity. BMI 36. Which complicates hospital course RENAL/LYTES: ESRD. Was on PD but switched to HD in January,. Now on HD every M,W,F through tunnele d HD cath. Last HD 08/25. See Dr. Chi outpatient. Will consult nephrology in AM no urgent need for DENITRATOR overnight. Renally dose medication and avoid nephrotoxins Monitor I/Os Monitor electrolytes. Hyperphosphatemia. Continue home dose of Renvela. ID: Patient with nonhealing AVG wound. Followed by [facility] wound care clinic. Patient was not o n antibiotics outpatient. Leukocytosis. WBC 29 on admission. Denies fever and chills outpatient. Patient received dose of cefazolin in OR. Along with fluid resuscitation. Currently afebrile, normotensive. O btain BC x 2, Lactic acid, and Procalcitonin. Will hold off on further antibiotics at this t gordy. Follow culture results. HEME: Acute blood loss from AVG wound site. EBL 250 ml. Given 2 u PRBC. Monitor surgical site for signs of bleeding. Monitor CBC daily. ENDO: No acute issues. Monitor BG and treat for BG > 180 x 2. MUSC/SKIN: S/p ligation of L axillary AV graft by Dr. Pederson. Care per vascular surgery Non healing L axillary AVG site. Wound care consult per vascular surgery. No acute issues Early mobility as tolerated Turn and assess skin per protocol PROPHYLAXIS: Stress ulcer prophylaxis: Pantoprazole home dose DVT prophylaxis: SCD's while in bed VAP bundle: N/A Disposition: ICU care as above. Patients mother and sister at bedside. Updated on the patie nts status. Plan to watch in the ICU overnight and transfer to surgical floor tomorrow. Code Status: Full Code Primary Care Physician: No Physician on file *Please bill 70 minutes of critical care time spent evaluating the patient, reviewing the d andrei and formulating a plan exclusive of all other procedures. BALJIT Guido 08/26/2019 documented in this encounter Consult Notes Santos Chi MD - 08/27/2019 9:38 AM PDT Hospital Problem List: Principal Problem: Bleeding from dialysis shunt Active Problems: End-stage renal disease Gastroesophageal reflux disease without esophagitis Hyperphosphatemia Wound, surgical, nonhealing, initial encounter AV graft malfunction, initial encounter S/P arteriovenous (AV) graft repair Leukocytosis Shock Obesity (BMI 30-39.9) I was asked by the ICU team to see Ms. Oconnor in consult today. As the admitting/consultin g team is familiar with her case, I will not state her past history in detail. Briefly, she is a 39 y.o. female patient with history as delineated in the Past Medical & Surgical Histor y sections. She was admitted with "End-stage renal disease (HCC) [N18.6]". I was called in to evaluate her for opinion on need for urgent dialysis. She presented with "profuse bleeding of her L axilla after her wound packing was removed" p er the patient's H&P, this was confirmed by the patient. She received 2 units of PRBC prior to transfer. Had Ligation of left axillary artery to axillary vein arteriovenous graft on . History & ROS obtained from : patient, ICU team, chart review. The patient has history of E SRD. She says that she feels 'poor' today. No history of blurred vision tinnitus, headache, fever, chills, or cough. No nausea, vomiting, abdominal pain, diarrhea, melena, or hematoc hezia. No chest pain, palpitation, dizziness, loss of consciousness, orthopnea, paroxysmal nocturnal dyspnea, or leg edema. No dysuria, incontinence, or symptoms of UTI. The following portions of the patient's history [...] systems were reviewed and were otherwise negative. docusate sodium 100 mg Oral BID heparin 1,500-6,000 Units Intracatheter After each dialysis heparin 3,400 Units Intracatheter After each dialysis pantoprazole 40 mg Oral QAM AC promethazine 25 mg Oral 4 times per day sevelamer carbonate 1,600 mg Oral Daily sevelamer carbonate 1,600 mg Oral Every afternoon sevelamer carbonate 2,400 mg Oral QPM I/O last 3 completed shifts: In: 2200 [I.V.:2200] Out: - No intake/output data recorded. P.E. BP 97/52 | Pulse 71 | Temp 36.8 C (98.2 F) (Oral) | Resp 16 | Ht 1.575 m (5' 2") | Wt 90 kg (198 lb 6.6 oz) | LMP 08/10/2019 | SpO2 96% | BMI 36.29 kg/m General appearance: Pleasant, not in acute distress. Neck: Supple without tracheal deviation or jugular venous distension. Head and ENT: Head is atraumatic. The oropharynx is without erythema or thrush. Eyes: Anicteric. The extraocular muscle movements are normal. Lungs: Clear to auscultation bilaterally. There are no wheezes. Heart: Regular rate and rhythm without any rub, gallop. No murmur. Abdominal exam: Soft and nontender with [...] normal. Judgment and thought content are normal. Access #1: CVC is positional historically. Site is benign. Access #2: left arm AVG site is tender to touch; dressed; I did not uncover it as dressed y by Vasc Surg team. Recent Labs 08/27/19 0755 08/27/19 0414 08/26/191 08/26/19 1856 BUN 30* 26* 24 -- CREA 8.56* 8.21* 7.16* -- EGFR 5* 5* 6* -- NA 140 138 140 -- K 6.5* 7.1* 5.2* -- CL 104 105 106 -- CO2 25 22* 22* -- CALCIUM 8.5 8.3* 8.4* -- PHOS -- 5.7* 6.9* -- MG -- 2.8* 2.6* -- HGB -- 11.9 13.2 13.3 HCT -- 36.1 41.3 39 Assessment/Recommendations: Ms. Oconnor is a 39 y.o. female patient with ESRD, HD. Presented with: "profuse bleeding of her L axilla after her wound packing was removed" per the patient's H&P, this was confirmed by the patient Admitted with: "End-stage renal disease (HCC) [N18.6]" VOLUME: EABV is okay No IVF need No diuresis either Advise total fluid restriction of 1.5 L per 24 hrs There is a UF indication Given her tendency for anasarca: Encourage adequate intake & close dietitian F/U. Encourage ambulation safely. Encourage the adequate use of an incentive spirometer. RENAL FUNCTION: No RKF There is an acute DENITRATOR indication No IVF need Strict I/O & daily weights. Dose all of her meds to her current intermittent HD. Continue to avoid all kinds of nephrotoxins. Target euvolumia with a MAP>75 mmHg as possible. BLOOD PRESSURE: soft Plan minimal UF today Vasoactive meds as ordered Monitor BP closely & frequently ELECTROLYTES: Severely abnormal. There is an acute DENITRATOR indication Sodium: ok Potassium: severe hyperkalemia Calcium: ok Magnesium: mildly up Phosphorus: mild hyperphosphatemia. No need for Phos binder now as she is not eating and h er appetite is down Acid/Base: ok Reinforce lytes protocol ALBUMIN: Hypoalbuminemia history Prot suppl stressed ANEMIA: none now No ANGELA need OTHER: F/U: Also seen and examined during dialysis. Tolerating it well. Access: very positional: low BFR & high venous pressures. I spoke with the Vasc Surg team: okay to use IV Heparin from the surgical prespective. Thus we will re-set up & use IV Hepari n as ordered. UF: minimal as tolerated. Next dialysis: MWF. I discussed today with Ms. Oconnor & her mom at bedside the meaning of her presenting sxs a nd the interaction of that with her vascular anatomy. I discussed with the ICU team the case before then at the time of this encounter. I spent 70 total minutes today in interviewing & examining the patient, reviewing & updatin g the patient's chart, formulating a plan, in addition to patient & mom education and discus sions with the primary/consulting team. Thank you Dr Montoya for the opportunity to see this patient in consult today. Please do no t hesitate to call me at any time with questions or concerns. Santos Chi MD oiQasim MD - 08/10 4:50 PM PDT [facility] Service: Vascular Surgery Initial Consult Note Date of Admission: 08/26/2019 Date of Consultation: 08/26/2019 Reason for Consultation: Left axillary AVG bleeding after wound packing removal History Obtained From: Patient, chart review Code Status: Prior CHIEF COMPLAINT: AVG bleeding; Left axillary HISTORY OF PRESENT ILLNESS The patient is a 39 y.o. female with significant past medical history of ESRD who presented to [facility] with profuse bleeding from her left axillary AVG after wound packing was r emoved. Per emergency department physician report, the patient had about 250ml blood loss, v enous bleeding. She received 2 units PRBC transfusion and 1Liter crystalloid. She has been h emodynamincally stable. Patient transferred to [facility] for emergency surgery and ligation of AV G. REVIEW OF SYSTEMS Not obtained due to emergency. Please see previous Vascular notes. Past Medical History: Diagnosis Date Acid reflux [...] 10/25/15 showed normal sized kidneys. She initiated DENITRATOR with PD 10/28/15. 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 Peritonitis associated with peritoneal dialysis (HCC) 01/24/2017 Peritonitis due to infected peritoneal dialysis catheter (HCC) 12/08/2018 Range of motion deficit left arm Renal insufficiency Secondary hyperparathyroidism (HCC) Uremia 10/28/2015 Past Surgical History: Procedure Laterality Date ABDOMEN SURGERY 10/27/2016 PD cath ARTERIAL BYPASS SURGRY CATHETER REMOVAL 02/04/2019 Procedure: DIALYSIS CATHETER - REMOVAL; Surgeon: Qasim Pederson MD; Location: [facility] MAIN OR ; Service: Vascular; Laterality: N/A; Infected PD catheter removal DEBRIDEMENT Left 07/08/2019 Procedure: LEFT AXILLA WOUND DEBRIDEMENT, WASHOUT AND POSSIBLE WOUND VAC PLACEMENT; Surge on: Qasim Pederson MD; Location: [facility] MAIN OR OTHER SURGICAL HISTORY Left 03/11/2019 AV FISTULA PLACEMENT - Procedure: AV FISTULA; Surgeon: Qasim Pederson MD; Location: [facility] OR; Service: Vascular; Laterality: Left; OTHER SURGICAL HISTORY HARDWARE PRESENT OTHER SURGICAL HISTORY Right 01/2019 chest wall OTHER SURGICAL HISTORY Left 05/06/2019 AV GRAFT CREATION - Procedure: AV GRAFT CREATION; Surgeon: Qasim Pederson MD; Location: [facility] MAIN OR; Service: Vascular; Laterality: Left; bovine carotid graft OTHER SURGICAL HISTORY Left 05/26/2019 WOUND VAC PLACEMENT/REPLACEMENT - Procedure: WOUND VAC - PLACEMENT - REPLACEMENT; Surgeon : Qasim Pederson MD; Location: [facility] MAIN OR; Service: Vascular; Laterality: Left; PERITONEAL CATHETER PLACEMENT/REMOVAL 10/28/2015 Procedure: LAPAROSCOPIC - PERITONEAL DIALYSIS CATH INSERTION; Surgeon: Mundo Ramos MD; Lo cation: [facility] MAIN OR; Service: Vascular; Laterality: N/A; UPPER GASTROINTESTINAL ENDOSCOPY 09/10/2017 Procedure: ESOPHAGOGASTRODUODENOSCOPY; Surgeon: Beena Peters MD; Location: [facility] ENDOSCOP Y; Service: Gastroenterology; Laterality: N/A; WISDOM TOOTH EXTRACTION Allergies Allergen Reactions Adhesive & Tape Itching Medication Sig HYDROcodone-acetaminophen (NORCO) 5-325 mg per tablet Take 1 tablet by mouth every 4 ho urs as needed for Pain. omeprazole (PRILOSEC) 20 mg capsule Take 20 mg by mouth every morning (before breakfast ). promethazine (PHENERGAN) 25 mg tablet Take 25 mg by mouth every 6 (six) hours as needed for Nausea. sevelamer carbonate (RENVELA) 800 mg tablet Take 1,600-2,400 mg by mouth See Admin Inst ructions. Take two tablets by mouth once daily in the morning, then two tablets by mouth onc e daily in the afternoon, then three tablets by mouth once daily in the evening with meals. Family History Problem Relation Age of Onset Cancer Maternal Grandmother breast ca Kidney disease Paternal Grandfather renal falure Other (see comment) Mother Other (see comments) - healthy Diabetes Father Breast cancer Maternal Grandmother Malig hypertherm Neg Hx Tobacco Use Smoking status: Former Smoker Packs/day: 0.25 Years: 10.00 Pack years: 2.50 Smokeless tobacco: Never Used Substance Use Topics Alcohol use: No Comment: Alcoholic Drinks/day: occ Drug use: Yes Types: Marijuana Comment: Drug use: Yes. uses oil, 3-4x daily via inhalation. PHYSICAL EXAM Vital Signs: LMP 08/10/2019 Constitutional: Well nourished, no signs of distress HENT: Non icteric sclerae, oropharynx clear. Normocephalic and atraumatic. Cardiovascular: Normal rate, regular rhythm. Pulmonary/Chest: No respiratory distress. Abdominal: Soft. No abdominal distension or tenderness. Musculoskeletal: Normal range of motion. Extremities: No cyanosis or clubbing. Neurological: She is alert and oriented. VASCULAR: Packing in left armpit. No active bleeding noted. DATA Lab Results Component Value Date WBC 10.30 08/10/2019 HGB 13.8 08/10/2019 HCT 42.2 08/10/2019 PLT 277 08/10/2019 CHOL 116 01/05/2019 TRIG 158 (H) 01/05/2019 HDL 45 01/05/2019 ALT <7 (L) 08/10/2019 AST 13 08/10/2019 NA 139 08/10/2019 K 5.7 (H) 08/10/2019 CL 102 08/10/2019 CREA 9.12 (H) 08/10/2019 BUN 35 (H) 08/10/2019 CO2 24 08/10/2019 TSH 3.40 10/27/2015 INR 1.1 01/05/2019 GLUF 71 05/26/2019 PROBLEM LIST Left axillary AVG bleeding ASSESSMENT & PLAN Left axillary AVG bleeding - Left axillary with AVG bleeding. Will proceed emergently to OR to stop bleeding and ligate her AVG. MD Man Cruz PA-C Vascular Surgery documented in this encou nter Miscellaneous Notes Plan of Care - Amrita Steele RN - 08/28/2019 4:57 PM PDT Problem: Adult Inpatient Plan of Care Goal: Plan of Care Review 08/28/2019 1657 by Amrita Steele RN Outcome: Met 08/28/2019 1241 by Amrita Steele RN Outcome: Ongoing, progressing Goal: Patient-Specific Goal Outcome: Met Goal: Absence of Hospital-Acquired Illness or Injury Outcome: Met Goal: Optimal Comfort and Wellbeing Outcome: Met Goal: Readiness for Transition of Care Outcome: Met Goal: Rounds/Family Conference Outcome: Met Problem: Fall Injury Risk Goal: Absence of Fall and Fall-Related Injury 08/28/20191656 by Amrita Steele RN Outcome: Met 08/28/2019 1241 by Amrita Steele RN Outcome: Ongoing, progressing Problem: Skin Injury Risk Increased Goal: Skin Health and Integrity Outcome: Met All discharge criteria has been met. Patient's pain and nausea is well under control. Pt h as ambulated in room, had a bowel movement, and ate a small lunch. Clear to discharge per Dr Iris hCi and Dr. Pederson. joni of Care - Amrita Steele RN - 08/28/2019 12:41 PM PDT Problem: Adult Inpatient Plan of Care Goal: Plan of Care Review Outcome: Ongoing, progressing Plan of care reviewed with Dr. Pederson and Dr. Chi with patient and mother who is at bedside . Patient has started on PO antibiotics and is okay to discharge per Dr. Pederson and Dr. Chi. Will notify hospitalist. Problem: Fall Injury Risk Goal: Absence of Fall and Fall-Related Injury Outcome: Ongoing, progressing Patient calls appropriately when needed, has made no attempts to get out of bed unattended . Mother or family member is consistently at bedside. Pt wearing non slip socks at all times . lan of April Harris RN - 08/27/2019 9:53 PM PDTPatient alert/oriented, received dialysis today, and sh ows no new signs of bleeding or infection at left axillary site. Will continue to monitor an d notify provider of any significant changes. Electronically signed by April Marques RN at 9:55 PM PDTPlan of Jessica Marshall MSW - 08/27/2019 3:28 PM PDTCare Manag ement Initial Assessment Readmission Risk: Medium Pt's mother Lyubov called me and verified all info below. Some info gleaned from previous hospitalization. Mother states that pt is to her Jose C. She is normally inde pendent with all ADL's. Status Prior to Admission or Illness Arrival From: admitted as an inpatient Lives With: spouse Living Arrangements: house(2 story) Caregiver For: no one Patient s Caregiver: spouse/significant other Functional Status: Independent; per previous chart spouse assists with ADL's. Caregiving Concerns: Unable to assess Home Accessibility: stairs to enter home Transportation Available: family or friend will provide Able to return to prior living: other (see comments) Care Management Concerns Last discharge date: Readmission Within Last 30 Days: no previous admission in last 30 days PCP: No Physician on file Pt's PCP from last admit was Juan F Whitley Contact Information Family Contact Information: Name: Lyubov -mother DC Needs Assessment Anticipated Changes Related to Illness: none Concerns to be Addressed: Services Anticipated at Discharge: Equipment Used at Home: none Equipment Needed after Discharge: Durable Medical Equipment Provider: Pharmacy/Medication Needs: Transportation Needs: family or friend will provide Initial Plan Anticipated Discharge Disposition: Expected DC Date: other (see comments) Steps Taken Toward Discharge: Next Steps: Notes: Pt goe-s to [facility] in [place] on MWF for dialysis. Member of [facility]. Pt reportedly lives with her spouse and a sister Lydia? Will assess this when I can talk with pt or family calls/arrives. Electronically signed: LUCILLE GAMA 08/27/2019 15:28 lan of Care - Jessica Blum MSW - 08/27/2019 3:19 PM PDTUnable to complete assessment. Pt sleeping and gett ing dialysis. I called her emergency contact which is her mother Lyubov ([phone]). Le ft a message requesting a return call. From review of earlier chart notes when pt was hospitalized in January of 2019, [facility]. She has Medicare and [employer] insurance and is also fo llowed by [facility]. Her CM is Lorna at [phone]. lan of Care - Amrita Holloway RN - 08/27/2019 2:14 PM PDT Problem: Adult Inpatient Plan of Care Goal: Plan of Care Review Outcome: Ongoing, progressing Plan of care reviewed with patient and mother who was at bedside this morning. Patient's b lood pressures have been stable and patient will be able to move out of ICU after dialysis t reatment. Problem: Fall Injury Risk Goal: Absence of Fall and Fall-Related Injury Outcome: Ongoing, progressing Patient has been in bed throughout the shift. Pt was getting dialysis treatment this morni ng, but d/t some complications, dialysis had to be stopped and will have to be restarted. Af ter dialysis is complete, we will encourage patient to get out of bed. Patient is rounded on frequently but is anuric and therefore has not needed to get up to go to the bathroom.Elect ronically signed by Amrita Steele RN at 08/27/2019 2:17 PM PDTGoals of Care - Lashawn Jansen ARNP - 08/27/2019 4:09 AM PDTGOALS OF CARE NOTE Participants: Who was present? Patient and Nurse Does patient have capacity?: Yes Patients mother and sister were also present Understanding of your illness: What is your understanding now of where you are with your illness?: Stable Information preferences: How much information about what is likely to be ahead with your illness would you like to h ave? Patient wants to be fully informed Goals and Plan of Medical Care: Full diagnostic and treatment of condition BALJIT Guido 08/27/19 4:09 CP (Advan ce Care Planning) - Lashawn Jansen ARNP - 08/27/2019 4:05 AM PDTThe patient, her mother and her sister are at the bedside. Informed the patient about her drop in SBP in OR and that we will be monitoring her in the ICU overnight. They state they understand and agre e with the plan. All questions answered. The patient wishes to be a full code. Electronicall y signed by BALJIT Landry at 08/27/2019 4:09 AM PDTOp Note - Qasim Pederson MD - 08/26/2019 6:18 PM [facility]: Vascular Surgery Procedure Note NAME: Ramona Oconnor MR #: [id number] : 1980 DATE OF PROCEDURE: 08/26/2019 SURGEON: Qasim Pederson MD DISABILITY INSURANCE CLAIM EXAMINER: Man Jeronimo PA-C (ARLYN was required to help with positioning, prepping and d raping, exposure of vessels, and closure). PREOPERATIVE DIAGNOSIS: 1) ESRD requiring hemodialysis 2) Left axillary artery to axillary vein AVG bleeding POSTOPERATIVE DIAGNOSIS: Same PROCEDURES: 1) Ligation of left axillary artery to axillary vein arteriovenous graft (Bovein carotid gr aft) ANESTHESIA: General endotracheal anesthesia SPECIMEN: None ESTIMATED BLOOD LOSS: 10ml BLOOD ADMINISTERED: None COMPLICATIONS: None CONDITION: Stable INDICATIONS: This is a 39 y.o. female patient with end stage renal failure who has previous ly undergone a left axillary artery to axillary vein arteriovenous graft [facility] three months ago. The patient developed left axilla wound dehiscence which did not respo nd to conservative therapy, debridement and wound vac. The patient was in wound care center today where her AVG started bleeding after packing was removed. Based on these consideration , we plan to perform left arm AVG ligation and bleeding control emergently. The patient verb alizes understanding and agrees to proceed. PROCEDURE IN DETAIL: The patient was brought to the operating room and placed on the operat ing table in the supine position. General anesthesia was given via endotracheal intubation. The patient s left arm was prepped sterilely and draped in the standard fashion. Appropria te time out was performed whereby the patient and site of surgery were identified. The left axillary wound was inspected and a defect in the venous limb of the AVG was identi fied. The arterial and venous anastomosis are intact. An elliptical incision was made in the axillary fossa to excise the skin and subcutaneous tissue using a scalpel and dissection wa s carried down using electrocautery. We were able to identify and isolate the arterial limb and the venous limb of the AVG. Next vascular clamps were placed in the proximal and distal portion of arterial and venous limb of the AVG. The arterial limb and venous limb of the AVG was transected. Both proximal and distal segments of the arterial limb and venous limb of t he AVG was suture-ligated using 5-0 prolene sutures, leaving a very short cuff at the the a rterial and venous anastomosis. The wound was next irrigated with saline solution. The skin was closed using 3-0 Nylon sutures in interrupted vertical mattress fashion. Dry dressing an d tape were applied over the incision site in the usual fashion. The patient had a short ep isode of hypotension and high airway pressure during the surgery which resolved spontaneousl y. She was awaken, extubated in a stable condition at the conclusion of the procedure. I was present throughout the entire operation. Qasim Pederson MD documente d in this encounter Plan of Treatment Not on filedocumented as of this encounter Procedures + +--------+ + + + | Procedure Name | Priori | Date/Time | Associated Diagnosis | Comments | | | ty | | | | + +--------+ + + + | HEPATITIS B SURFACE | Timed | 08/28/2019 | | Results for this | | AG | | 4:02 AM | | procedure are in the | | | | PDT | | results section. | + +--------+ + + + | CBC WITH | STAT | 08/28/2019 | | Results for this | | DIFFERENTIAL | | 4:02 AM | | procedure are in the | | | | PDT | | results section. | + +--------+ + + + | PHOSPHORUS | STAT | 08/28/2019 | | Results for this | | | | 4:02 AM | | procedure are in the | | | | PDT | | results section. | + +--------+ + + + | MAGNESIUM | STAT | 08/28/2019 | | Results for this | | | | 4:02 AM | | procedure are in the | | | | PDT | | results section. | + +--------+ + + + | BASIC METABOLIC | STAT | 08/28/2019 | | Results for this | | PANEL | | 4:02 AM | | procedure are in the | | | | PDT | | results section. | + +--------+ + + + | POTASSIUM | STAT | 08/27/2019 | | Results for this | | | | 7:52 PM | | procedure are in the | | | | PDT | | results section. | + +--------+ + + + | HEPATITIS B SURFACE | STAT | 08/27/2019 | | Results for this | | AG | | 9:45 AM | | procedure are in the | | | | PDT | | results section. | + +--------+ + + + | POC GLUCOSE (NON | Routin | 08/27/2019 | | Results for this | | ORD) | e | 9:29 AM | | procedure are in the | | | | PDT | | results section. | + +--------+ + + + | BASIC METABOLIC | STAT | 08/27/2019 | | Results for this | | PANEL | | 7:55 AM | | procedure are in the | | | | PDT | | results section. | + +--------+ + + + | CBC WITH | STAT | 08/27/2019 | | Results for this | | DIFFERENTIAL | | 4:14 AM | | procedure are in the | | | | PDT | | results section. | + +--------+ + + + | PHOSPHORUS | STAT | 08/27/2019 | | Results for this | | | | 4:14 AM | | procedure are in the | | | | PDT | | results section. | + +--------+ + + + | MAGNESIUM | STAT | 08/27/2019 | | Results for this | | | | 4:14 AM | | procedure are in the | | | | PDT | | results section. | + +--------+ + + + | BASIC METABOLIC | Routin | 08/27/2019 | | Results for this | | PANEL | e | 4:14 AM | | procedure are in the | | | | PDT | | results section. | + +--------+ + + + | CULTURE, BLOOD | STAT | 08/26/2019 | | Results for this | | | | 9:47 PM | | procedure are in the | | | | PDT | | results section. | + +--------+ + + + | PROCALCITONIN, SERUM | Routin | 08/26/2019 | | Results for this | | | e | 9:29 PM | | procedure are in the | | | | PDT | | results section. | + +--------+ + + + | CULTURE, BLOOD | STAT | 08/26/2019 | | Results for this | | | | 9:29 PM | | procedure are in the | | | | PDT | | results section. | + +--------+ + + + | LACTIC ACID | STAT | 08/26/2019 | | Results for this | | | | 9:29 PM | | procedure are in the | | | | PDT | | results section. | + +--------+ + + + | MRSA NAAT | Routin | 08/26/2019 | | Results for this | | | e | 8:33 PM | | procedure are in the | | | | PDT | | results section. | + +--------+ + + + | CBC WITH | JONG | 08/26/2019 | | Results for this | | DIFFERENTIAL | | 8:31 PM | | procedure are in the | | | | PDT | | results section. | + +--------+ + + + | PHOSPHORUS | JONG | 08/26/2019 | | Results for this | | | | 8:31 PM | | procedure are in the | | | | PDT | | results section. | + +--------+ + + + | MAGNESIUM | JONG | 08/26/2019 | | Results for this | | | | 8:31 PM | | procedure are in the | | | | PDT | | results section. | + +--------+ + + + | BASIC METABOLIC | STAT | 08/26/2019 | | Results for this | | PANEL | | 8:31 PM | | procedure are in the | | | | PDT | | results section. | + +--------+ + + + | POC GLUCOSE (NON | Routin | 08/26/2019 | | Results for this | | ORD) | e | 8:13 PM | | procedure are in the | | | | PDT | | results section. | + +--------+ + + + | POC ISTAT, CG8, | Routin | 08/26/2019 | | Results for this | | ARTERIAL | e | 6:56 PM | | procedure are in the | | | | PDT | | results section. | + +--------+ + + + | ECHO LIMITED | STAT | 08/26/2019 | | Results for this | | | | 6:52 PM | | procedure are in the | | | | PDT | | results section. | + +--------+ + + + | XR CHEST 1 VIEW | Routin | 08/26/2019 | | Results for this | | | e | 6:03 PM | | procedure are in the | | | | PDT | | results section. | + +--------+ + + + | ARLENE LULUPOLLO, CG8, | Routin | 08/26/2019 | | Results for this | | ARTERIAL | e | 6:03 PM | | procedure are in the | | | | PDT | | results section. | + +--------+ + + + | REVISION AV FISTULA | | 08/26/2019 | End-stage renal | | | | | 4:45 PM | disease (HCC) | | | | | PDT | | | + +--------+ + + + documented in this encounter Results Phosphorus (08/28/2019 4:02 AM PDT) + + + + + + | Component | Value | Ref Range | Performed | Pathologist | | | | | At | Signature | + + + + + + | Phosphorus | 4.4Comment: Testing | 2.3 - 4.8 mg/dL | [facility] | | | | performed at [facility];[address] | | LABORATORY | | | | [address];[place], [place] | | | | | | [address] | | | | + + + + + + + + | Specimen | + + | Blood | + + + + + + + | Performing | Address | City/State/Zipcode | Phone Number | | Organization | | | | + + + + + | [facility] | [address] | [place] [address] | [phone] | + + + + + Magnesium (08/28/2019 4:02 AM PDT) + + + + + + | Component | Value | Ref Range | Performed | Pathologist | | | | | At | Signature | + + + + + + | Magnesium | 2.5 (H)Comment: Testing | 1.7 - 2.4 mg/dL | [facility] | | | | performed at [facility];[address] | | LABORATORY | | | | [address];[place], [place] | | | | | | [address] | | | | + + + + + + + + | Specimen | + + | Blood | + + + + + + + | Performing | Address | City/State/Zipcode | Phone Number | | Organization | | | | + + + + + | [facility] | [address] | [place] [address] | [phone] | + + + + + CBC with Differential (08/28/2019 4:02 AM PDT) + + + + + + | Component | Value | Ref Range | Performed | Pathologist | | | | | At | Signature | + + + + + + | WBC | 9.89 | 3.80 - 11.00 | [facility] | | | | | K/uL | LABORATORY | | + + + + + + | RBC | 3.83 | 3.70 - 5.10 | [facility] | | | | | M/uL | LABORATORY | | + + + + + + | Hemoglobin | 11.2 (L) | 11.3 - 15.5 | [facility] | | | | | g/dL | LABORATORY | | + + + + + + | Hematocrit | 33.7 (L) | 34.0 - 46.0 % | [facility] | | | | | | LABORATORY | | + + + + + + | MCV | 88.2 | 80.0 - 100.0 fl | [facility] | | | | | | LABORATORY | | + + + + + + | MCH | 29.3 | 27.0 - 34.0 pg | [facility] | | | | | | LABORATORY | | + + + + + + | MCHC | 33.2 | 32.0 - 35.5 | [facility] | | | | | g/dL | LABORATORY | | + + + + + + | RDW-SD | 47.7 | 37 - 53 fl | [facility] | | | | | | LABORATORY | | + + + + + + | Platelet | 172 | 150 - 400 K/uL | [facility] | | | Count | | | LABORATORY | | + + + + + + | MPV | 8.6 | fl | [facility] | | | | | | LABORATORY | | + + + + + + | Diff Type | AUTOMATED | | [facility] | | | | | | LABORATORY | | + + + + + + | % | 76.91 | % | [facility] | | | Neutrophils | | | LABORATORY | | + + + + + + | % | 11.11 | % | [facility] | | | Lymphocytes | | | LABORATORY | | + + + + + + | Monocyte % | 6.86 | % | [facility] | | | | | | LABORATORY | | + + + + + + | Eosinophils | 4.49 | % | [facility] | | | % | | | LABORATORY | | + + + + + + | Basophils % | 0.63 | % | [facility] | | | | | | LABORATORY | | + + + + + + | Neutrophils | 7.60 (H) | 1.90 - 7.40 | [facility] | | | , Absolute | | K/uL | LABORATORY | | + + + + + + | Absolute | 1.10 | 1.00 - 3.90 | [facility] | | | Lymphocytes | | K/uL | LABORATORY | | + + + + + + | Absolute | 0.68 | 0.00 - 0.80 | [facility] | | | Monocytes | | K/uL | LABORATORY | | + + + + + + | Eosinophils | 0.44 | 0.00 - 0.50 | [facility] | | | , Absolute | | K/uL | LABORATORY | | + + + + + + | Basophils, | 0.06Comment: Testing | 0.00 - 0.10 | [facility] | | | Absolute | performed at [facility];[address] | K/uL | LABORATORY | | | | [address];[place], [place] | | | | | | [address] | | | | + + + + + + + + | Specimen | + + | Blood | + + + + + + + | Performing | Address | City/State/Zipcode | Phone Number | | Organization | | | | + + + + + | [facility] | [address] | [place] [address] | [phone] | + + + + + Basic Metabolic Panel (08/28/2019 4:02 AM PDT) + + + + + + | Component | Value | Ref Range | Performed | Pathologist | | | | | At | Signature | + + + + + + | Na | 141 | 135 - 145 | [facility] | | | | | mmol/L | LABORATORY | | + + + + + + | K | 5.0 (H) | 3.5 - 4.9 | [facility] | | | | | mmol/L | LABORATORY | | + + + + + + | Cl | 103 | 99 - 109 mmol/L | [facility] | | | | | | LABORATORY | | + + + + + + | CO2 | 29 | 23 - 32 mmol/L | [facility] | | | | | | LABORATORY | | + + + + + + | Anion Gap | 14 | 5 - 20 mmol/L | [facility] | | | | | | LABORATORY | | + + + + + + | Glucose | 93 | 65 - 99 mg/dL | [facility] | | | | | | LABORATORY | | + + + + + + | BUN | 20 | 8 - 25 mg/dL | [facility] | | | | | | LABORATORY | | + + + + + + | Creatinine | 6.04 (H) | 0.50 - 1.00 | [facility] | | | | | mg/dL | LABORATORY | | + + + + + + | BUN/Creatin | 3 | | [facility] | | | ine Ratio | | | LABORATORY | | + + + + + + | Calcium | 8.3 (L) | 8.5 - 10.5 | [facility] | | | | | mg/dL | LABORATORY | | + + + + + + | Estimated | 8 (L)Comment: GFR <60: | >60 | [facility] | | | GFR | [...] | | | | | | MDRD IDNE traceable | | | | | | equation.Testing | | | | | | performed at [facility];[address] | | | | | | [facility];[place], [place] | | | | | | [address] | | | | + + + + + + + + | Specimen | + + | Blood | + + + + + + + | Performing | Address | City/State/Zipcode | Phone Number | | Organization | | | | + + + + + | [facility] | [address] | [place] [address] | [phone] | + + + + + Hepatitis B Surface Ag (08/28/2019 4:02 AM PDT) + + + + + + | Component | Value | Ref Range | Performed | Pathologist | | | | | At | Signature | + + + + + + | Hepatitis B | NON REACTIVEComment: | NR | [facility] | | | Surface Ag | Testing performed at | | LABORATORY | | | | L, [address] | | | | | | [place] | | | | | | [address] | | | | + + + + + + + + | Specimen | + + | Blood | + + + + + + + | Performing | Address | City/State/Zipcode | Phone Number | | Organization | | | | + + + + + | [facility] | [address] | [place] [address] | [phone] | + + + + + Potassium (08/27/2019 7:52 PM PDT) + + + + + + | Component | Value | Ref Range | Performed | Pathologist | | | | | At | Signature | + + + + + + | K | 3.8Comment: Testing | 3.5 - 4.9 | [facility] | | | | performed at [facility];[address] | mmol/L | LABORATORY | | | | [address];[place], [place] | | | | | | [address] | | | | + + + + + + + + | Specimen | + + | Blood | + + + + + + + | Performing | Address | City/State/Zipcode | Phone Number | | Organization | | | | + + + + + | [facility] | [address] | [place] [address] | [phone] | + + + + + Hepatitis B Surface Ag (08/27/2019 9:45 AM PDT) + + + + + + | Component | Value | Ref Range | Performed | Pathologist | | | | | At | Signature | + + + + + + | Hepatitis B | NON REACTIVEComment: | NR | [facility] | | | Surface Ag | Testing performed at | | LABORATORY | | | | TCL, [address] [facility] | | | | | | [place], [place] | | | | | | [address] | | | | + + + + + + + + | Specimen | + + | Blood - Entire left | | ankle (body | | structure) | + + + + + + + | Performing | Address | City/State/Zipcode | Phone Number | | Organization | | | | + + + + + | [facility] | [address] | [place] [address] | [phone] | + + + + + POC Glucose (08/27/2019 9:29 AM PDT) + + + + + + | Component | Value | Ref Range | Performed | Pathologist | | | | | At | Signature | + + + + + + | Glucose, | 81Comment: Testing | 65 - 99 mg/dL | [facility] | | | POC | performed at [facility];[address] | | LABORATORY | | | | [address];[place] | | | | | | [address] | | | | + + + + + + + + | Specimen | + + | | + + + + + + + | Performing | Address | City/State/Zipcode | Phone Number | | Organization | | | | + + + + + | [facility] | [address] | [place] [address] | [phone] | + + + + + Basic Metabolic Panel (08/27/2019 7:55 AM PDT) + + + + + + | Component | Value | Ref Range | Performed | Pathologist | | | | | At | Signature | + + + + + + | Na | 140 | 135 - 145 | [facility] | | | | | mmol/L | LABORATORY | | + + + + + + | K | 6.5 ()Comment: CALLED | 3.5 - 4.9 | [facility] | | | | NURSING UNITREAD BACK | mmol/L | LABORATORY | | | | RESULTS VERIFIEDMARSWAPNA W | | | | | | ON 10RP AT 0831 BY CRK | | | | | |FELIPE Gomez ON 10RP AT 0831 BY CRK | | | | | | | | | | + + + + + + | Cl | 104 | 99 - 109 mmol/L | [facility] | | | | | | LABORATORY | | + + + + + + | CO2 | 25 | 23 - 32 mmol/L | [facility] | | | | | | LABORATORY | | + + + + + + | Anion Gap | 18 | 5 - 20 mmol/L | [facility] | | | | | | LABORATORY | | + + + + + + | Glucose | 82 | 65 - 99 mg/dL | [facility] | | | | | | LABORATORY | | + + + + + + | BUN | 30 (H) | 8 - 25 mg/dL | [facility] | | | | | | LABORATORY | | + + + + + + | Creatinine | 8.56 (H) | 0.50 - 1.00 | [facility] | | | | | mg/dL | LABORATORY | | + + + + + + | BUN/Creatin | 4 | | [facility] | | | ine Ratio | | | LABORATORY | | + + + + + + | Calcium | 8.5 | 8.5 - 10.5 | [facility] | | | | | mg/dL | LABORATORY | | + + + + + + | Estimated | 5 (L)Comment: GFR <60: | >60 | [facility] | | | GFR | [...] | | | | | | MDRD IDMS traceable | | | | | | equation.Testing | | | | | | performed at [facility];[address] | | | | | | [facility];[place], [place] | | | | | | [address] | | | | + + + + + + + + | Specimen | + + | Blood | + + + + + + + | Performing | Address | City/State/Zipcode | Phone Number | | Organization | | | | + + + + + | [facility] | [address] | [place] [address] | [phone] | + + + + + Basic Metabolic Panel (08/27/2019 4:14 AM PDT) + + + + + + | Component | Value | Ref Range | Performed | Pathologist | | | | | At | Signature | + + + + + + | Na | 138 | 135 - 145 | [facility] | | | | | mmol/L | LABORATORY | | + + + + + + | K | 7.1 ()Comment: CALLED | 3.5 - 4.9 | [facility] | | | | TO FELIPE Aceves RN/10RP AT | mmol/L | LABORATORY | | | | 0723 BY MWREAD BACK | | | | | | RESULTS VERIFIEDREDRAW | | | | | | SUGGESTED | | | | | | | | | | + + + + + + | Cl | 105 | 99 - 109 mmol/L | [facility] | | | | | | LABORATORY | | + + + + + + | CO2 | 22 (L) | 23 - 32 mmol/L | [facility] | | | | | | LABORATORY | | + + + + + + | Anion Gap | 18 | 5 - 20 mmol/L | [facility] | | | | | | LABORATORY | | + + + + + + | Glucose | 94 | 65 - 99 mg/dL | [facility] | | | | | | LABORATORY | | + + + + + + | BUN | 26 (H) | 8 - 25 mg/dL | [facility] | | | | | | LABORATORY | | + + + + + + | Creatinine | 8.21 (H) | 0.50 - 1.00 | [facility] | | | | | mg/dL | LABORATORY | | + + + + + + | BUN/Creatin | 3 | | [facility] | | | ine Ratio | | | LABORATORY | | + + + + + + | Calcium | 8.3 (L) | 8.5 - 10.5 | [facility] | | | | | mg/dL | LABORATORY | | + + + + + + | Estimated | 5 (L)Comment: GFR <60: | >60 | [facility] | | | GFR | [...] | | | | | | MDRD IDMS traceable | | | | | | equation.Testing | | | | | | performed at [facility];[address] | | | | | | [facility];[place], [place] | | | | | | [address] | | | | + + + + + + + + | Specimen | + + | | + + + + + + + | Performing | Address | City/State/Zipcode | Phone Number | | Organization | | | | + + + + + | [facility] | [address] | [place] [address] | [phone] | + + + + + Phosphorus (08/27/2019 4:14 AM PDT) + + + + + + | Component | Value | Ref Range | Performed | Pathologist | | | | | At | Signature | + + + + + + | Phosphorus | 5.7 (H)Comment: Testing | 2.3 - 4.8 mg/dL | [facility] | | | | performed at [facility];[address] | | LABORATORY | | | | [address];[place] | | | | | | [address] | | | | + + + + + + + + | Specimen | + + | Blood | + + + + + + + | Performing | Address | City/State/Zipcode | Phone Number | | Organization | | | | + + + + + | [facility] | [address] | [place] [address] | [phone] | + + + + + Magnesium (08/27/2019 4:14 AM PDT) + + + + + + | Component | Value | Ref Range | Performed | Pathologist | | | | | At | Signature | + + + + + + | Magnesium | 2.8 (H)Comment: Testing | 1.7 - 2.4 mg/dL | [facility] | | | | performed at [facility];[address] | | LABORATORY | | | | [facility];[place] | | | | | | [address] | | | | + + + + + + + + | Specimen | + + | Blood | + + + + + + + | Performing | Address | City/State/Zipcode | Phone Number | | Organization | | | | + + + + + | [facility] | [address] | [place] [address] | [phone] | + + + + + CBC with Differential (08/27/2019 4:14 AM PDT) + + + + + + | Component | Value | Ref Range | Performed | Pathologist | | | | | At | Signature | + + + + + + | WBC | 13.66 (H) | 3.80 - 11.00 | [facility] | | | | | K/uL | LABORATORY | | + + + + + + | RBC | 4.05 | 3.70 - 5.10 | [facility] | | | | | M/uL | LABORATORY | | + + + + + + | Hemoglobin | 11.9 | 11.3 - 15.5 | [facility] | | | | | g/dL | LABORATORY | | + + + + + + | Hematocrit | 36.1 | 34.0 - 46.0 % | [facility] | | | | | | LABORATORY | | + + + + + + | MCV | 89.2 | 80.0 - 100.0 fl | [facility] | | | | | | LABORATORY | | + + + + + + | MCH | 29.3 | 27.0 - 34.0 pg | [facility] | | | | | | LABORATORY | | + + + + + + | MCHC | 32.9 | 32.0 - 35.5 | [facility] | | | | | g/dL | LABORATORY | | + + + + + + | RDW-SD | 47.3 | 37 - 53 fl | [facility] | | | | | | LABORATORY | | + + + + + + | Platelet | 190 | 150 - 400 K/uL | [facility] | | | Count | | | LABORATORY | | + + + + + + | MPV | 8.3 | fl | [facility] | | | | | | LABORATORY | | + + + + + + | Diff Type | AUTOMATED | | [facility] | | | | | | LABORATORY | | + + + + + + | % | 88.16 | % | [facility] | | | Neutrophils | | | LABORATORY | | + + + + + + | % | 7.63 | % | [facility] | | | Lymphocytes | | | LABORATORY | | + + + + + + | Monocyte % | 3.64 | % | [facility] | | | | | | LABORATORY | | + + + + + + | Eosinophils | 0.20 | % | [facility] | | | % | | | LABORATORY | | + + + + + + | Basophils % | 0.37 | % | [facility] | | | | | | LABORATORY | | + + + + + + | Neutrophils | 12.04 (H) | 1.90 - 7.40 | [facility] | | | , Absolute | | K/uL | LABORATORY | | + + + + + + | Absolute | 1.04 | 1.00 - 3.90 | [facility] | | | Lymphocytes | | K/uL | LABORATORY | | + + + + + + | Absolute | 0.50 | 0.00 - 0.80 | [facility] | | | Monocytes | | K/uL | LABORATORY | | + + + + + + | Eosinophils | 0.03 | 0.00 - 0.50 | [facility] | | | , Absolute | | K/uL | LABORATORY | | + + + + + + | Basophils, | 0.05 | 0.00 - 0.10 | [facility] | | | Absolute | | K/uL | LABORATORY | | + + + + + + | RBC | RBC AND PLT MORPHOLOGY | | [facility] | | | Morphology | APPEAR NORMAL | | LABORATORY | | + + + + + + | Platelet | ADEQUATE | | [facility] | | | Estimate | | | LABORATORY | | + + + + + + | Comment | SLIDE SCANNED, AGREES | | [facility] | | | | WITH AUTOMATED | | LABORATORY | | | | RESULTS.Comment: Testing | | | | | | performed at [facility];[address] | | | | | | [address];[place] | | | | | | [address] | | | | + + + + + + + + | Specimen | + + | Blood | + + + + + + + | Performing | Address | City/State/Zipcode | Phone Number | | Organization | | | | + + + + + | [facility] | [address] | [place] [address] | [phone] | + + + + + Culture, Blood (08/26/2019 9:47 PM PDT) + + + + + + | Component | Value | Ref Range | Performed | Pathologist | | | | | At | Signature | + + + + + + | Special | R ARM | | [facility] | | | Requests | | | LABORATORY | | + + + + + + | Special | Testing performed at | | [facility] | | | Requests | [facility];[address] | | LABORATORY | | | | [address];[place] [address] | | | | + + + + + + | RESULT | NO GROWTH 6 DAYS | | [facility] | | | | | | LABORATORY | | + + + + + + | RESULT | Testing performed at | | [facility] | | | | TCL, [address] | | LABORATORY | | | | [place] | | | | | | [id number]: Testing | | | | | | performed at [facility], [address] | | | | | | [address] [place] | | | | | | [id number] | | | | + + + + + + + + | Specimen | + + | Blood - Peripheral | | blood specimen | | (specimen) | + + + + + + + | Performing | Address | City/State/Zipcode | Phone Number | | Organization | | | | + + + + + | [facility] | [address] | [place] [address] | [phone] | + + + + + Procalcitonin (08/26/2019 9:29 PM PDT) + + + + + + | Component | Value | Ref Range | Performed | Pathologist | | | | | At | Signature | + + + + + + | PROCALCITON | 0.80 (H)Comment: | <0.5 ng/mL | [facility] | | | IN | INTERPRETIVE | | LABORATORY | | | | INFORMATION: | | | | | | PROCALCITONIN PCT <= | | | | | | 0.5 ng/mL: Low risk | | | | | | for progression to | | | | | | severe systemic | | | | | | bacterial infection | | | | | | (severe sepsis/septic | | | | | | shock). Does not | | | | | | exclude an infection, | | | | | | because localized | | | | | | infections may be | | | | | | associated with such low | | | | | | levels. If PCT is | | | | | | measured very early | | | | | | after bacterial | | | | | | challenge (usually <6 | | | | | | hours), results may | | | | | | still be low and | | | | | | should re-assess PCT | | | | | | 6-24 hours later. PCT | | | | | | >0.5 and <= 2 ng/mL: | | | | | | Moderate risk for | | | | | | progression to severe | | | | | | systemic infection | | | | | | (severe sepsis/septic | | | | | | shock). Other | | | | | | conditions are known | | | | | | to elevate PCT, patient | | | | | | should be closely | | | | | | monitored both | | | | | | clinically and by | | | | | | re-assessing PCT | | | | | | within 6-24 hours. PCT > | | | | | | 2 ng/mL: High | | | | | | likelihood for | | | | | | progression to severe | | | | | | systemic bacterial | | | | | | infection (severe | | | | | | sepsis/septic shock). | | | | | | PCT >= 10 ng/mL: | | | | | | High likelihood of | | | | | | severe sepsis or septic | | | | | | shock.Testing performed | | | | | | at [facility];[address] [place] [address] | | | | | | [facility];[place] [address] | | | | + + + + + + + + | Specimen | + + | Blood | + + + + + + + | Performing | Address | City/State/Zipcode | Phone Number | | Organization | | | | + + + + + | [facility] | [address] | [place] [address] | [phone] | + + + + + Lactic Acid (08/26/2019 9:29 PM PDT) + + + + + + | Component | Value | Ref Range | Performed | Pathologist | | | | | At | Signature | + + + + + + | Lactate, | 1.8Comment: Testing | 0.4 - 2.0 | [facility] | | | Serum | performed at [facility];[address] | mmol/L | LABORATORY | | | | [address];[place], [place] | | | | | | [address] | | | | + + + + + + + + | Specimen | + + | Blood | + + + + + + + | Performing | Address | City/State/Zipcode | Phone Number | | Organization | | | | + + + + + | [facility] | [address] | [place] [address] | [phone] | + + + + + Culture, Blood (08/26/2019 9:29 PM PDT) + + + + + + | Component | Value | Ref Range | Performed | Pathologist | | | | | At | Signature | + + + + + + | Special | ARTLINE | | [facility] | | | Requests | | | LABORATORY | | + + + + + + | Special | Testing performed at | | [facility] | | | Requests | [facility];[address] | LABORATORY | | | | [address];[place] [address] | | | | + + + + + + | RESULT | NO GROWTH 6 DAYS | | [facility] | | | | | | LABORATORY | | + + + + + + | RESULT | Testing performed at | | [facility] | | | | TCL, [address] | | LABORATORY | | | | [address], [place], [place] | | | | | | [id number]: Testing | | | | | | performed at [facility], [address] | | | | | [address], [place], [place] | | | | | | [address] | | | | + + + + + + + + | Specimen | + + | Blood - Peripheral | | blood specimen | | (specimen) | + + + + + + + | Performing | Address | City/State/Zipcode | Phone Number | | Organization | | | | + + + + + | [facility] | [address] | [place] [address] | [phone] | + + + + + MRSA NAAT (08/26/2019 8:33 PM PDT) + + + + + + | Component | Value | Ref Range | Performed | Pathologist | | | | | At | Signature | + + + + + + | SOURCE: | NARES(NOSE) | | [facility] | | | | | | LABORATORY | | + + + + + + | Result | NEGATIVEComment: Testing | MRSNEG | [facility] | | | | performed at [facility];[address] | | LABORATORY | | | | [address];[place], [place] | | | | | | [address] | | | | + + + + + + + + | Specimen | + + | Tissue - Both | | anterior nares (body | | structure) | + + + + + + + | Performing | Address | City/State/Zipcode | Phone Number | | Organization | | | | + + + + + | [facility] | [address] | [place] [address] | [phone] | + + + + + Basic Metabolic Panel (08/26/2019 8:31 PM PDT) + + + + + + | Component | Value | Ref Range | Performed | Pathologist | | | | | At | Signature | + + + + + + | Na | 140 | 135 - 145 | [facility] | | | | | mmol/L | LABORATORY | | + + + + + + | K | 5.2 (H) | 3.5 - 4.9 | [facility] | | | | | mmol/L | LABORATORY | | + + + + + + | Cl | 106 | 99 - 109 mmol/L | [facility] | | | | | | LABORATORY | | + + + + + + | CO2 | 22 (L) | 23 - 32 mmol/L | [facility] | | | | | | LABORATORY | | + + + + + + | Anion Gap | 17 | 5 - 20 mmol/L | [facility] | | | | | | LABORATORY | | + + + + + + | Glucose | 138 (H) | 65 - 99 mg/dL | [facility] | | | | | | LABORATORY | | + + + + + + | BUN | 24 | 8 - 25 mg/dL | [facility] | | | | | | LABORATORY | | + + + + + + | Creatinine | 7.16 (H) | 0.50 - 1.00 | [facility] | | | | | mg/dL | LABORATORY | | + + + + + + | BUN/Creatin | 3 | | [facility] | | | ine Ratio | | | LABORATORY | | + + + + + + | Calcium | 8.4 (L) | 8.5 - 10.5 | [facility] | | | | | mg/dL | LABORATORY | | + + + + + + | Estimated | 6 (L)Comment: GFR <60: | >60 | [facility] | | | GFR | [...] | | | | | | MDRD IDNE traceable | | | | | | equation.Testing | | | | | | performed at [facility] | | | | | | [facility];[place], [place] | | | | | | [address] | | | | + + + + + + + + | Specimen | + + | Blood | + + + + + + + | Performing | Address | City/State/Zipcode | Phone Number | | Organization | | | | + + + + + | [facility] | [address] | [place] [address] | [phone] | + + + + + Phosphorus (08/26/2019 8:31 PM PDT) + + + + + + | Component | Value | Ref Range | Performed | Pathologist | | | | | At | Signature | + + + + + + | Phosphorus | 6.9 (H)Comment: Testing | 2.3 - 4.8 mg/dL | [facility] | | | | performed at [facility];[address] | | LABORATORY | | | | [address];[place] | | | | | | [address] | | | | + + + + + + + + | Specimen | + + | Blood | + + + + + + + | Performing | Address | City/State/Zipcode | Phone Number | | Organization | | | | + + + + + | [facility] | [address] | [place] [address] | [phone] | + + + + + Magnesium (08/26/2019 8:31 PM PDT) + + + + + + | Component | Value | Ref Range | Performed | Pathologist | | | | | At | Signature | + + + + + + | Magnesium | 2.6 (H)Comment: Testing | 1.7 - 2.4 mg/dL | [facility] | | | | performed at [facility] | | LABORATORY | | | | [address];[place], [place] | | | | | | [address] | | | | + + + + + + + + | Specimen | + + | Blood | + + + + + + + | Performing | Address | City/State/Zipcode | Phone Number | | Organization | | | | + + + + + | [facility] | [address] | [place] [address] | [phone] | + + + + + CBC with Differential (08/26/2019 8:31 PM PDT) + + + + + + | Component | Value | Ref Range | Performed | Pathologist | | | | | At | Signature | + + + + + + | WBC | 29.30 (H) | 3.80 - 11.00 | [facility] | | | | | K/uL | LABORATORY | | + + + + + + | RBC | 4.64 | 3.70 - 5.10 | [facility] | | | | | M/uL | LABORATORY | | + + + + + + | Hemoglobin | 13.2 | 11.3 - 15.5 | [facility] | | | | | g/dL | LABORATORY | | + + + + + + | Hematocrit | 41.3 | 34.0 - 46.0 % | [facility] | | | | | | LABORATORY | | + + + + + + | MCV | 89.0 | 80.0 - 100.0 fl | [facility] | | | | | | LABORATORY | | + + + + + + | MCH | 28.4 | 27.0 - 34.0 pg | [facility] | | | | | | LABORATORY | | + + + + + + | MCHC | 31.9 (L) | 32.0 - 35.5 | [facility] | | | | | g/dL | LABORATORY | | + + + + + + | RDW-SD | 46.8 | 37 - 53 fl | [facility] | | | | | | LABORATORY | | + + + + + + | Platelet | 240 | 150 - 400 K/uL | [facility] | | | Count | | | LABORATORY | | + + + + + + | MPV | 8.3 | fl | [facility] | | | | | | LABORATORY | | + + + + + + | Diff Type | MANUAL | | [facility] | | | | | | LABORATORY | | + + + + + + | % Segmented | 88 | % | [facility] | | | | | | LABORATORY | | | Neutrophils | | | | | + + + + + + | % Bands | 4 | % | [facility] | | | | | | LABORATORY | | + + + + + + | % | 1 | % | [facility] | | | Metamyelocy | | | LABORATORY | | | acacia | | | | | + + + + + + | % | 1 | % | [facility] | | | Lymphocytes | | | LABORATORY | | + + + + + + | Reactive | 1 | % | [facility] | | | Lymphocytes | | | LABORATORY | | + + + + + + | % Monocytes | 5 | % | [facility] | | | | | | LABORATORY | | + + + + + + | Neutrophils | 25.79 (H) | 1.90 - 7.40 | [facility] | | | , Absolute | | K/uL | LABORATORY | | + + + + + + | Absolute | 1.17 (H) | 0.00 - 0.20 | [facility] | | | Band | | K/uL | LABORATORY | | | Neutrophils | | | | | + + + + + + | Absolute | 0.29 (H) | 0.00 K/uL | [facility] | | | Metamyelocy | | | LABORATORY | | | acacia | | | | | + + + + + + | Absolute | 0.29 (L) | 1.00 - 3.90 | [facility] | | | Lymphocytes | | K/uL | LABORATORY | | + + + + + + | Absolute | 0.29 | K/uL | [facility] | | | Reactive | | | LABORATORY | | | Lymphocytes | | | | | + + + + + + | Absolute | 1.47 (H) | 0.00 - 0.80 | [facility] | | | Monocytes | | K/uL | LABORATORY | | + + + + + + | Platelet | ADEQUATE | | [facility] | | | Estimate | | | LABORATORY | | + + + + + + | RBC | RBC AND PLT MORPHOLOGY | | [facility] | | | Morphology | APPEAR NORMAL | | LABORATORY | | + + + + + + | Comment | PLATELETS | | [facility] | | | | CLUMPEDComment: Testing | | LABORATORY | | | | performed at [facility] | | | | | | [address];[place], [place] | | | | | | [address] | | | | + + + + + + + + | Specimen | + + | Blood | + + + + + + + | Performing | Address | City/State/Zipcode | Phone Number | | Organization | | | | + + + + + | [facility] | [address] | [place] [address] | [phone] | + + + + + POC Glucose (08/26/2019 8:13 PM PDT) + + + + + + | Component | Value | Ref Range | Performed | Pathologist | | | | | At | Signature | + + + + + + | Glucose, | 129 (H)Comment: Testing | 65 - 99 mg/dL | [facility] | | | POC | performed at [facility];[address] | | LABORATORY | | | | [address];[place], [place] | | | | | | [address] | | | | + + + + + + + + | Specimen | + + | | + + + + + + + | Performing | Address | City/State/Zipcode | Phone Number | | Organization | | | | + + + + + | [facility] | [address] | [place] [address] | [phone] | + + + + + POC NASRA AGUILERA Arterial (08/26/2019 6:56 PM PDT) + + + + + + | Component | Value | Ref Range | Performed | Pathologist | | | | | At | Signature | + + + + + + | pH, | 7.269 (L) | 7.350 - 7.450 | [facility] | | | Arterial, | | | LABORATORY | | | POC | | | | | + + + + + + | pCO2, | 52 (H) | 35 - 45 mmHg | [facility] | | | Arterial | | | LABORATORY | | + + + + + + | pO2, | 106 (H) | 80 - 105 mmHg | [facility] | | | Arterial | | | LABORATORY | | + + + + + + | HCO3, | 24 | 22 - 26 mmol/L | [facility] | | | Arterial | | | LABORATORY | | + + + + + + | TCO2, | 25 | 23 - 27 mEq/L | [facility] | | | Arterial, | | | LABORATORY | | | POC | | | | | + + + + + + | POC Base | 3 (H) | 0.0 - 2.0 | [facility] | | | Deficit | | mmol/L | LABORATORY | | | mmol/L | | | | | + + + + + + | SO2, | 97 | 95 - 98 % | [facility] | | | Arterial, | | | LABORATORY | | | POC | | | | | + + + + + + | Sodium, POC | 138 | 135 - 145 mEq/L | [facility] | | | | | | LABORATORY | | + + + + + + | Potassium, | 4.1 | 3.5 - 5.0 mEq/L | [facility] | | | POC | | | LABORATORY | | + + + + + + | Ionized | 1.11 (L) | 1.12 - 1.32 | [facility] | | | Calcium, | | mmol/L | LABORATORY | | | POC | | | | | + + + + + + | Glucose, | 129 (H) | 65 - 99 mg/dL | [facility] | | | POC | | | LABORATORY | | + + + + + + | Hematocrit, | 39 | 35.0 - 46.0 % | [facility] | | | POC | | | LABORATORY | | + + + + + + | Hemoglobin, | 13.3Comment: Testing | 11.6 - 15.5 | [facility] | | | POC | performed at [facility];[address] | g/dL | LABORATORY | | | | [address];[place], [place] | | | | | | [address] | | | | + + + + + + + + | Specimen | + + | | + + + + + + + | Performing | Address | City/State/Zipcode | Phone Number | | Organization | | | | + + + + + | [facility] | [address] | [place] [address] | [phone] | + + + + + Echo Limited (08/26/2019 6:52 PM PDT) + +--------+ + + + | Component | Value | Ref Range | Performed | Pathologist | | | | | At | Signature | + +--------+ + + + | LVEF-TTE | 65 | % | [facility] | | | TRANSTHORAC | | | | | | IC ECHO | | | | | + +--------+ + + + | BASELINE | 110/70 | mmHg | [facility] | | | BLOOD | | | | | | PRESSURE | | | | | + +--------+ + + + | Patient | 270# | | [facility] | | | Weight | | | | | | (lbs) | | | | | + +--------+ + + + | Patient | 63" | | [facility] | | | Height | | | | | + +--------+ + + + | Heart Rate | 97 | | [facility] | | + +--------+ + + + + + | Specimen | + + | | + + + + + | Narrative | Performed At | + + + | Limited study | [facility] | | Poor quality due to poor acoustic window | | | Normal LV systolic function EF estimated at 65 to 70% | | | No obvious valvular disease | | + + + + +---------+ + + | Performing | Address | City/State/Zipcode | Phone Number | | Organization | | | | + +---------+ + + | [facility] | | | | + +---------+ + + XR Chest 1 Vw (08/26/2019 6:03 PM PDT) + + | Specimen | + + | | + + + + + | Impressions | Performed At | + + + | Low lung volumes with left base consolidation. Endotracheal tube | [facility] | | 1.7 cm above the ben. Right IJ line in the right atrium. NG tube | | | in the upper to mid stomach. Signed by: Daphney Paz Jade | | | Sign Date/Time: 08/26/2019 6:09 PM | | + + + + + + | Narrative | Performed At | + + + | CHEST ONE VIEW CLINICAL INFORMATION: Embolism. | [facility] | | COMPARISON: IR GUIDANCE VASCULAR ACCESS US (2019); XR CHEST 2 | | | VIEW FRONTAL AND LATERAL (12/07/2018); XR CHEST 2 VIEW (06/05/2018); | | | FINDINGS: Endotracheal tube ends 1.7 cm above the ben. | | | Large-bore catheter in the right IJ ends in the right atrium. NG | | | tube ends in the upper to mid stomach. Left base consolidation. | | | Low lung volumes accentuate heart size. No pneumothorax seen. | | + + + + + | Procedure Note | + + | Endy, Rad Results In - 08/26/2019 6:13 PM PDT | | CHEST ONE VIEW | | | | CLINICAL INFORMATION: | | Embolism. | | | | COMPARISON: | | IR GUIDANCE VASCULAR ACCESS US (2019); XR CHEST 2 VIEW FRONTAL AND | | LATERAL (12/07/2018); XR CHEST 2 VIEW (06/05/2018); | | | | FINDINGS: | | Endotracheal tube ends 1.7 cm above the ben. Large-bore catheter in | | the right IJ ends in the right atrium. NG tube ends in the upper to | | mid stomach. Left base consolidation. Low lung volumes accentuate | | heart size. No pneumothorax seen. | | | | IMPRESSION: | | Low lung volumes with left base consolidation. | | Endotracheal tube 1.7 cm above the ben. | | Right IJ line in the right atrium. | | NG tube in the upper to mid stomach. | | | | | | | | Signed by: Dapheny Paz Jade | | Sign Date/Time: 08/26/2019 6:09 PM | + + + +---------+ + + | Performing | Address | City/State/Zipcode | Phone Number | | Organization | | | | + +---------+ + + | [facility] | | | | + +---------+ + + POC ISTAT, [id number], Arterial (08/26/2019 6:03 PM PDT) + + + + + + | Component | Value | Ref Range | Performed | Pathologist | | | | | At | Signature | + + + + + + | pH, | 7.269 (L) | 7.350 - 7.450 | [facility] | | | Arterial, | | | LABORATORY | | | POC | | | | | + + + + + + | pCO2, | 55 (H) | 35 - 45 mmHg | [facility] | | | Arterial | | | LABORATORY | | + + + + + + | pO2, | 112 (H) | 80 - 105 mmHg | [facility] | | | Arterial | | | LABORATORY | | + + + + + + | HCO3, | 25 | 22 - 26 mmol/L | [facility] | | | Arterial | | | LABORATORY | | + + + + + + | TCO2, | 27 | 23 - 27 mEq/L | [facility] | | | Arterial, | | | LABORATORY | | | POC | | | | | + + + + + + | POC Base | 2 | 0.0 - 2.0 | [facility] | | | Deficit | | mmol/L | LABORATORY | | | mmol/L | | | | | + + + + + + | SO2, | 98 | 95 - 98 % | [facility] | | | Arterial, | | | LABORATORY | | | POC | | | | | + + + + + + | Sodium, POC | 138 | 135 - 145 mEq/L | [facility] | | | | | | LABORATORY | | + + + + + + | Potassium, | 4.2 | 3.5 - 5.0 mEq/L | [facility] | | | POC | | | LABORATORY | | + + + + + + | Ionized | 1.17 | 1.12 - 1.32 | [facility] | | | Calcium, | | mmol/L | LABORATORY | | | POC | | | | | + + + + + + | Glucose, | 119 (H) | 65 - 99 mg/dL | [facility] | | | POC | | | LABORATORY | | + + + + + + | Hematocrit, | 43 | 35.0 - 46.0 % | [facility] | | | POC | | | LABORATORY | | + + + + + + | Hemoglobin, | 14.6Comment: Testing | 11.6 - 15.5 | [facility] | | | POC | performed at [facility];888 | g/dL | LABORATORY | | | | Maksim Agarwal;[place] | | | | | | [id number] | | | | + + + + + + + + | Specimen | + + | | + + + + + + + | Performing | Address | City/State/Zipcode | Phone Number | | Organization | | | | + + + + + | [facility] | [address] | [place] [address] | [phone] | + + + + + documented in this encounter Visit Diagnoses + + | Diagnosis | + + | End-stage renal disease (HCC) End stage renal disease | + + | Bleeding from dialysis shunt, initial encounter (HCC) | + + | AV graft malfunction, initial encounter (HCC) | + + | Gastroesophageal reflux disease without esophagitis Esophageal reflux | + + | Hyperphosphatemia Disorders of phosphorus metabolism | + + | Leukocytosis, unspecified type | + + | S/P arteriovenous (AV) graft repair | + + | Shock (HCC) Shock, unspecified | + + | Wound, surgical, nonhealing, initial encounter | + + | Anemia in ESRD (end-stage renal disease) (HCC) Anemia in chronic kidney disease | + + | Hyperkalemia Hyperpotassemia | + + | At high risk for electrolyte imbalance | + + | Obesity (BMI 30-39.9) Obesity, unspecified | + + documented in this encounter Admitting Diagnoses + + | Diagnosis | + + | End-stage renal disease (HCC) End stage renal disease | + + documented in this encounter Administered Medications + +--------+ +------+------+------+ | Medication Order | MAR | Action | Dose | Rate | Site | | | Action | Date | | | | + +--------+ +------+------+------+ | alteplase (CATHFLO ACTIVASE) | Given | 08/27/20 | 2 mg | | | | injection 1 mg 1 mg, | | 19 12:25 | | | | | Intracatheter, ONCE, 08/27/19 | | PM PDT | | | | | at 1215, For 1 dose, Instill | | | | | | | alteplase to the volume of | | | | | | | specific catheter type. ALTEPLASE | | | | | | | HEMODIALYSIS CATH FOR TWO HOURS | | | | | | | THEN CONTINUE HD TX FOR 2 HRS, | | | | | | | Treatment date(s): 08/27/2019, | | | | | | | Dialysis | | | | | | + +--------+ +------+------+------+ +---+---+ | | | +---+---+ + +-------+ +------+---+---+ | alteplase (CATHFLO ACTIVASE) | Given | 08/27/20 | 2 mg | | | | injection 1 mg 1 mg, | | 19 12:25 | | | | | Intracatheter, DIALYSIS - PRN, | | PM PDT | | | | | For de-clotting hemodialysis | | | | | | | catheter - Instill per facility | | | | | | | protocol, Starting 08/27/19 | | | | | | | at 1201, Instill alteplase to the | | | | | | | volume of specific catheter | | | | | | | type., Treatment date(s): | | | | | | | 08/27/2019 | | | | | | + +-------+ +------+---+---+ + +---+ | | | + +---+ | bisacodyl (DULCOLAX) | | | suppository 10 mg 10 mg, Rectal, | | | DAILY PRN, Constipation, | | | Starting [facility] 08/26/19 at 2010, If | | | no BM in prior 48 hours and | | | docusate and Miralax ineffective, | | | | | + +---+ | | | + +---+ + +-------+ +--------+---+---+ | clindamycin (CLEOCIN) capsule | Given | 08/28/20 | 300 mg | | | | 300 mg 300 mg, Oral, EVERY 6 | | 19 5:15 | | | | | HOURS (4 times per day), First | | PM PDT | | | | | dose on 08/28/19 at 1200, | | | | | | | Indications: Post-Operative Wound | | | | | | | Infection | | | | | | + +-------+ +--------+---+---+ +-------+ +--------+---+---+ | Given | 08/28/20 | 300 mg | | | | | 19 11:56 | | | | | | AM PDT | | | | +-------+ +--------+---+---+ +---+---+ | | | +---+---+ + +-------+ +--------+---+---+ | docusate sodium (COLACE) | Given | 08/28/20 | 100 mg | | | | capsule 100 mg 100 mg, Oral, 2 | | 19 9:00 | | | | | TIMES DAILY, First dose on Nina | | AM PDT | | | | | 08/26/19 at 2100, Hold for loose | | | | | | | stools, | | | | | | + +-------+ +--------+---+---+ +-------+ +--------+---+---+ | Given | 08/27/20 | 100 mg | | | | | 19 8:00 | | | | | | PM PDT | | | | +-------+ +--------+---+---+ | Given | 08/27/20 | 100 mg | | | | | 19 9:35 | | | | | | AM PDT | | | | +-------+ +--------+---+---+ +---+---+ | | | +---+---+ + +-------+ +--------+---+---+ | fentaNYL (PF) injection 25 mcg | Given | 08/27/20 | 25 mcg | | | | 25 mcg, Intravenous, EVERY 2 | | 19 1:56 | | | | | HOURS PRN, Pain, Starting Nina | | AM PDT | | | | | 08/26/19 at 2020 | | | | | | + +-------+ +--------+---+---+ +-------+ +--------+---+---+ | Given | 08/26/20 | 25 mcg | | | | | 19 8:42 | | | | | | PM PDT | | | | +-------+ +--------+---+---+ +---+---+ | | | +---+---+ + +---------+ + +---------+---+ | heparin (dialysis) 1,000 | New Bag | 08/27/20 | 2,000 | 2 mL/hr | | | units/mL infusion 2,000 Units/hr | | 19 3:37 | Units/hr | | | | (2 mL/hr), at 2 mL/hr, | | PM PDT | | | | | Intravenous, DIALYSIS - | | | | | | | CONTINUOUS, Starting 08/27/19 | | | | | | | at 1200, DIALYSIS USE ONLY - | | | | | | | DISCONTINUE AFTER DIALYSIS IS | | | | | | | COMPLETE. GIVE 2000 UNITS AFTER | | | | | | | ONE HOUR ON DIALYSIS (AFTER TX | | | | | | | RESTART)., Treatment date(s): | | | | | | | 08/20/2019, 08/27/2019 | | | | | | + +---------+ + +---------+---+ +---+---+ | | | +---+---+ + +-------+ +--------+---+---+ | heparin (dialysis) 1,000 | Given | 08/27/20 | 5,000 | | | | units/mL injection 5,000 Units | | 19 2:32 | Units | | | | 5,000 Units, Intravenous, WITH | | PM PDT | | | | | EACH DIALYSIS, Starting Fri | | | | | | | 08/27/19 at 1424, DIALYSIS USE | | | | | | | ONLY - DISCONTINUE AFTER DIALYSIS | | | | | | | IS COMPLETE, Treatment date(s): | | | | | | | 08/20/2019, 08/27/2019 | | | | | | + +-------+ +--------+---+---+ +---+---+ | | | +---+---+ + +-------+ +--------+---+---+ | heparin 1,000 units/mL | Given | 08/26/20 | 1,600 | | | | injection 1,500-6,000 Units | | 19 10:08 | Units | | | | 1,500-6,000 Units, Intracatheter, | | PM PDT | | | | | AFTER EACH DIALYSIS, Starting | | | | | | | Nina 08/26/19 at 2115, Instill in | | | | | | | catheter, after each dialysis. | | | | | | | Dispense quantity sufficient to | | | | | | | fill both lumens of catheter., | | | | | | | Treatment date(s): 08/26/2019 | | | | | | + +-------+ +--------+---+---+ + +---+ | | | + +---+ | heparin 1,000 units/mL | | | injection 3,400 Units 3,400 | | | Units, Intracatheter, AFTER EACH | | | DIALYSIS, Starting 08/27/19 | | | at 0935, Instill in catheter, | | | after each dialysis. Dispense | | | quantity sufficient to fill both | | | lumens of catheter., Treatment | | | date(s): 08/27/2019 | | + +---+ | | | + +---+ + +-------+ +--------+---+---+ | heparin 1,000 units/mL | Given | 08/27/20 | 3,400 | | | | injection 3,400 Units 3,400 | | 19 3:34 | Units | | | | Units, Intracatheter, AFTER EACH | | PM PDT | | | | | DIALYSIS, Starting 08/27/19 | | | | | | | at 1132, Instill in catheter, | | | | | | | after each dialysis. Dispense | | | | | | | quantity sufficient to fill both | | | | | | | lumens of catheter., Treatment | | | | | | | date(s): 08/20/2019, 08/27/2019 | | | | | | + +-------+ +--------+---+---+ +---+---+ | | | +---+---+ + +-------+ + +---+---+ | HYDROcodone-acetaminophen | Given | 08/28/20 | 1 tablet | | | | (NORCO) 5-325 mg per tablet 1-2 | | 19 9:00 | | | | | tablet 1-2 tablet, Oral, EVERY 4 | | AM PDT | | | | | HOURS PRN, Pain, Starting Fri | | | | | | | 08/27/19 at 0525 | | | | | | + +-------+ + +---+---+ +-------+ + +---+---+ | Given | 08/28/20 | 1 tablet | | | | | 19 12:37 | | | | | | AM PDT | | | | +-------+ + +---+---+ | Given | 08/27/20 | 1 tablet | | | | | 19 5:08 | | | | | | PM PDT | | | | +-------+ + +---+---+ +---+---+ | | | +---+---+ + +-------+ +------+---+---+ | morphine injection 1-4 mg 1-4 | Given | 08/26/20 | 2 mg | | | | mg, Intravenous, EVERY 5 MIN PRN, | | 19 7:40 | | | | | Pain, Starting Nina 08/26/19 at | | PM PDT | | | | | 1901, First dose must be lowest | | | | | | | dose, can increase subsequent | | | | | | | doses by 1mg within dosing range. | | | | | | | If patient meets opioid | | | | | | | tolerant definition, can start | | | | | | | with 2mg dose. [Maximum total | | | | | | | PACU dose 20 mg] Use Pasero | | | | | | | Sedation Scale. [Opioid tolerant | | | | | | | = One week or longer, | | | | | | | [id number] use of at least | | | [...] +-------+ +------+---+---+ +-------+ +------+---+---+ | Given | 08/26/20 | 2 mg | | | | | 19 7:20 | | | | | | PM PDT | | | | +-------+ +------+---+---+ + +---+ | | | + +---+ | naloxone (NARCAN) 0.4 mg/mL | | | injection 0.4 mg 0.4 mg, | | | Intravenous, PRN, Apnea, | | | Decreased Responsiveness, | | | Starting [facility] 08/27/19 at 0637 | | + +---+ | | | + +---+ | ondansetron (ZOFRAN) 2 mg/mL | | | injection Starting [facility] 08/26/19 | | | at 2006, For 1 dose, Madhu, | | | Alyce : marie elise, | | + +---+ | | | + +---+ + +-------+ +------+---+---+ | ondansetron (ZOFRAN) injection | Given | 08/26/20 | 4 mg | | | | 4 mg 4 mg, Intravenous, ONCE | | 19 7:41 | | | | | PRN, Nausea, Starting Nina | | PM PDT | | | | | 08/26/19 at 1901, For 1 dose, | | | | | | | Recovery/Phase I | | | | | | + +-------+ +------+---+---+ +---+---+ | | | +---+---+ + +-------+ +------+---+---+ | ondansetron (ZOFRAN) injection | Given | 08/26/20 | 4 mg | | | | 4 mg 4 mg, Intravenous, ONCE | | 19 8:55 | | | | | PRN, Nausea, Starting Nina | | PM PDT | | | | | 08/26/19 at 2011, For 1 dose, | | | | | | | Recovery/Phase I | | | | | | + +-------+ +------+---+---+ +---+---+ | | | +---+---+ + +-------+ +------+---+---+ | ondansetron (ZOFRAN) injection | Given | 08/28/20 | 4 mg | | | | 4 mg 4 mg, Intravenous, EVERY 6 | | 19 5:29 | | | | | HOURS PRN, Nausea, Starting Nina | | PM PDT | | | | | 08/26/19 at 2010, First line | | | | | | | agent, | | | | | | + +-------+ +------+---+---+ +-------+ +------+---+---+ | Given | 08/27/20 | 4 mg | | | | | 19 10:16 | | | | | | PM PDT | | | | +-------+ +------+---+---+ +---+---+ | | | +---+---+ + +-------+ +-------+---+---+ | pantoprazole (PROTONIX) DR | Given | 08/28/20 | 40 mg | | | | tablet 40 mg 40 mg, Oral, DAILY | | 19 6:30 | | | | | BEFORE BREAKFAST, First dose on | | AM PDT | | | | | 08/27/19 at 0730, Indication: | | | | | | | GERD | | | | | | + +-------+ +-------+---+---+ +-------+ +-------+---+---+ | Given | 08/27/20 | 40 mg | | | | | 19 9:36 | | | | | | AM PDT | | | | +-------+ +-------+---+---+ + +---+ | | | + +---+ | polyethylene glycol (MIRALAX) | | | powder 17 g 17 g, Oral, DAILY | | | PRN, Constipation, Starting Nina | | | 08/26/19 at 2010, If docusate | | | ineffective, give Miralax daily | | | until BM, then PRN (start if no | | | BM on day 2). Mix with 8 oz. | | | water., | | + +---+ | | | + +---+ + +-------+ +---------+---+---+ | promethazine (PHENERGAN) (IV | Given | 08/27/20 | 12.5 mg | | | | ONLY) injection 12.5 mg 12.5 mg, | | 19 1:51 | | | | | Intravenous, EVERY 6 HOURS PRN, | | AM PDT | | | | | Nausea, Vomiting, Starting Nina | | | | | | | 08/26/19 at 2107, Vesicant. When | | | | | | | ordered IV push: Dilute to | | | | | | | 10-20mL with NS. Give over 2-3 | | | | | | | minutes into large vein. Do not | | | | | | | give in hand/wrist or foot/ankle | | | | | | | vein. Max dose 12.5mg if giving | | | | | | | peripherally.Infuse in LARGE | | | | | | | Vein Only, | | | | | | + +-------+ +---------+---+---+ +-------+ +---------+---+---+ | Given | 08/26/20 | 12.5 mg | | | | | 19 9:17 | | | | | | PM PDT | | | | +-------+ +---------+---+---+ +---+---+ | | | +---+---+ + +-------+ +-------+---+---+ | promethazine (PHENERGAN) tablet | Given | 08/28/20 | 25 mg | | | | 25 mg 25 mg, Oral, EVERY 6 | | 19 5:28 | | | | | HOURS (4 times per day), First | | PM PDT | | | | | dose (after last modification) on | | | | | | | 08/27/19 at 0700 | | | | | | + +-------+ +-------+---+---+ +-------+ +-------+---+---+ | Given | 08/28/20 | 25 mg | | | | | 19 11:52 | | | | | | AM PDT | | | | +-------+ +-------+---+---+ | Given | 08/28/20 | 25 mg | | | | | 19 6:28 | | | | | | AM PDT | | | | +-------+ +-------+---+---+ +---+---+ | | | +---+---+ + +-------+ + +---+---+ | sevelamer carbonate (RENVELA) | Given | 08/27/20 | 1,600 mg | | | | tablet 1,600 mg 1,600 mg, Oral, | | 19 8:04 | | | | | DAILY AFTERNOON, First dose on | | PM PDT | | | | | 08/27/19 at 1400, Do not cut | | | | | | | or crush tablets., | | | | | | + +-------+ + +---+---+ +-------+ +--------+---+---+ | Given | 08/27/20 | 800 mg | | | | | 19 1:25 | | | | | | PM PDT | | | | +-------+ +--------+---+---+ +---+---+ | | | +---+---+ + +-------+ + +---+---+ | sevelamer carbonate (RENVELA) | Given | 08/28/20 | 1,600 mg | | | | tablet 1,600 mg 1,600 mg, Oral, | | 19 2:13 | | | | | 2 TIMES DAILY WITH BREAKFAST & | | PM PDT | | | | | LUNCH, First dose (after last | | | | | | | reorder) on 08/28/19 at 1400, | | | | | | | Do not cut or crush tablets., | | | | | | + +-------+ + +---+---+ +---+---+ | | | +---+---+ + +-------+ + +---+---+ | sevelamer carbonate (RENVELA) | Given | 08/27/20 | 1,600 mg | | | | tablet 2,400 mg 2,400 mg, Oral, | | 19 5:16 | | | | | DAILY EVENING, First dose on Nina | | PM PDT | | | | | 08/26/19 at 2045, Do not cut or | | | | | | | crush tablets., | | | | | | + +-------+ + +---+---+ + +---+ | | | + +---+ | sevelamer carbonate (RENVELA) | | | tablet 2,400 mg 2,400 mg, Oral, | | | DAILY WITH DINNER, First dose on | | | 08/28/19 at 1700, Do not cut | | | or crush tablets., | | + +---+ | | | + +---+ | sodium chloride 0.9% (NS) bolus | | | 100 mL 100 mL, Intravenous, | | | Administer over 15 Minutes, | | | DIALYSIS - PRN, Hypotension, | | | Starting Fri08/27/19 at 0935, | | | Treatment date(s): 08/27/2019, | | | For BP less than 100 mm Hg. Give | | | 100 mL bolus up to 1000 mL. | | | DIALYSIS USE ONLY - DISCONTINUE | | | AFTER DIALYSIS THERAPY IS | | | COMPLETE, | | + +---+ | | | + +---+ + +-------+ +------+---+---+ | zolpidem (AMBIEN) tablet 5 mg | Given | 08/27/20 | 5 mg | | | | 5 mg, Oral, NIGHTLY PRN, | | 19 10:31 | | | | | Insomnia, Starting Fri08/27/19 | | PM PDT | | | | | at 2220 | | | | | | + +-------+ +------+---+---+ +---+---+ | | | +---+---+ documented in this encounter
--- OUTSIDE RECORDS SUMMARY | ~2020-05-11 | XMS | Encounter Summary ---
Demographics + + + | Address | [address] | | | [place] [address] | + + + | Home Phone [...] + | Author | [facility] | | | and [place] | + + + | Organization | [facility] | | | and [place] | + + + | Address | Unknown | + + + | Phone | Unavailable | + + + Support + + + + + | Name | Relationship | Address | Phone | + + + + + | Lyubov Smalls | ECON | [place], [place] | | | | | [address] | | + + + + + | Lydia Palm | ECON | [place], [place] | | | | | [address] | | + + + + + | melinda METZ" | ECON | [place], [place] | | | [place] | | [phone] | | + + + + + | Jose C Oconnor | ECON | [place] | | | | | [place] | | | | | [address] | | + + + + + Care Team Providers + +------+ + | Care Gas Meter Installer Helper Name | Role | Phone | + +------+ + | No, Physician | PCP | Unavailable | + +------+ + Reason for Visit +--------+--------+ + | Reason | Onset | Comments | | | Date | | +--------+--------+ + | Wound | 08/12/ | | | | 2019 | | +--------+--------+ + Encounter Details +--------+ + + + + | Date | Type | Department | Care Team | Description | +--------+ + + + + | 08/12/ | Telephone | [facility] | Qasim Pederson MD | Wound | | 2019 | | VASCULAR SURGERY | [address] | | | | | [address] [place] | [place] | | | | | [place] | [address] | | | | | [address] | | | | | | [phone] | | | +--------+ + + + [...] encounter Miscellaneous Notes Telephone Encounter - Nidhi Whitaker RN - 08/12/2019 12:57 PM PDTReturn call made to Malena ji, confirmed that pressure should be set to 150 mmHg with white foam. Elisha MARTINEZ stated und erstanding. elephon e Encounter - Mayar Licea I - 08/12/2019 11:13 AM Leyla, is calling regarding Wound and would like a call back. Additional Call Details: Discuss patient's wound pressure setting. Please call back as jean marie n as possible at: [phone] If this is a symptom based call, was patient offered triage? Not Applicable If this is a symptom based call and you were unable to immediately transfer the call to a garfield sadler cosmetic counselor was caller made aware that if at any time she feels it is an emergency they sh ould call 911 or go to the nearest emergency room? not applicable documented in this encounter Plan of Treatment Not on filedocumented as of this encounter Visit Diagnoses Not on filedocumented in this encounter
--- OUTSIDE RECORDS SUMMARY | ~2020-05-11 | XMS | Encounter Summary ---
Demographics + + + | Address | [address] | | | [place] [address] | + + + | Home Phone | | + + + | Preferred Language | Unknown | + + + | Marital Status | | + + + | Moravian Affiliation | Unknown | + + + | Race | Unknown | + + + | Ethnic Group | Unknown | + + + Author + + + | Author | [facility] | | | and [place] | + + + | Organization | [facility] | | | and [place] | + + + | Address | Unknown | + + + | Phone | Unavailable | + + + Support + + + + + | Name | Relationship | Address | Phone | + + + + + | Lyubov Smalls | ECON | [place], [place] | | | | | [address] | | + + + + + | Lydia Palm | ECON | [place], [place] | | | | | [address] | | + + + + + | melinda METZ" | ECON | [place], [place] | | | [place] | | [phone] | | + + + + + | Jose C Oconnor | ECON | [place] | | | | | [place] | | | | | [address] | | + + + + + Care Team Providers + +------+ + | Care Lead Atg Developer Name | Role | Phone | + +------+ + | Unknown, Physician | PCP | | + +------+ + Reason for Visit + + + | Reason | Comments | + + + | Follow-up | | + + + Encounter Details +--------+---------+ + + + | Date | Type | Department | Care Team | Description | +--------+---------+ + + + | 01/24/ | Office | [facility] | Kylie Alves DNP | ESRD (end stage | | 2020 | Visit | VASCULAR SURGERY | [address] | renal disease) on | | | | [address] | [place] | dialysis (HCC) | | | | [place], [place] | [address] | (Primary Dx); | | | | [address] | | Hemodialysis access, | | | | [phone] | | AV graft (HCC) | +--------+---------+ + + + Social History [...] +---------+ + + | Blood Pressure | 118/80 | 01/25/2020 2:12 PM | | | | | PDT | | + +---------+ + + | Pulse | 75 | 01/25/2020 2:12 PM | | | | | PDT | | + +---------+ + + | Temperature | - | - | | + +---------+ + + | Respiratory Rate | - | - | | + +---------+ + + | Oxygen Saturation | 99% | 01/25/2020 2:12 PM | | | | | PDT | | + +---------+ + + | [...] + documented as of this encounter Progress Sarath Alves Si, DNP - 01/25/2020 2:00 PM [facility] [address] [place] [address] [place] [address] Office: [phone] DATE OF VISIT: 01/25/2020 PATIENT NAME: Ramona Oconnor : 1980; AGE: 39 y.o.; Sex:F PHONE NUMBER: ; ; PROVIDER: Kylie Alves DNP PRIMARY CARE / REFERRING PHYSICIAN: No ref. provider found / Physician Unknown PA / No address on file REASON FOR EVALUATION / CHIEF COMPLAINT: Vascular Surgery Postoperative Visit for AVG creation The patient presents today for a Vascular Surgery Postoperative Visit. The patient is statu s post right brachial artery to axillary vein AVG creation using 5 mm bovine carotid graft, which was performed on 01/11/2020 at the [facility] Operating Room. The pa bakari is not having any pain. The patient denies fever, wound drainage, increasing redness, pus, increasing pain, increasing swelling. Physical examination revealed surgical incision w hich is healing well without signs of infection. She has good thrills over the AVG site. Perla carranza's hemotherapist is Dr. Chi. The patient is receiving hemodialysis on Friday, Friday and Friday via right upper chest tunneled catheter at [facility]. She reports they used her right arm AVG with one needle access yesterday for 1 hour and still used her tunneled cathet er. VITAL SIGNS: BP 118/80 | Pulse 75 | LMP 12/31/2019 (Within Days) | SpO2 99% PHYSICAL EXAM: Constitutional: Well nourished, no signs of distress Cardiovascular: Normal rate, regular rhythm. Pulmonary/Chest: No respiratory distress. No adventitious sounds. Abdominal: Soft. No abdominal distension or tenderness. Musculoskeletal: Normal range of motion. Extremities: No edema, cyanosis or clubbing. Neurological: She is alert and oriented. VASCULAR: right upper arm examination showed normal thrills in the AV fistula. Daugherty rgical incision wounds are healing well without signs of infection. Assessment & Plan: ESRD & s/p AV fistula creation -Wound care discussed with patient, monitor for signs of inf ection. Check for AVG thrill daily. Continue to use right arm AVG for hemodialysis. The alex ent will return for tunneled hemodialysis catheter removal when the AVG can be accessed with out problem with 2 large needles for 2- [address] Ramos, tunneled cathete r is not ready to be removed at this time. Kylie Alves DNP documented in this encounte r Plan of Treatment Not on filedocumented as of this encounter Visit Diagnoses + + | Diagnosis | + + | ESRD (end stage renal disease) on dialysis (HCC) - Primary End stage renal disease | + + | Hemodialysis access, AV graft (HCC) | + + documented in this encounter
--- OUTSIDE RECORDS SUMMARY | ~2020-05-11 | XMS | Encounter Summary ---
Demographics + + + | Address | [address] | | | [place] [address] | + + + | Home Phone | | + + + | Preferred Language | Unknown | + + + | Marital Status | | + + + | Restorationism Affiliation | Unknown | + + + | Race | Unknown | + + + | Ethnic Group | Unknown | + + + Author + + + | Author | [facility] | | | and [place] | + + + | Organization | [facility] | | | and [place] | + + + | Address | Unknown | + + + | Phone | Unavailable | + + + Support + + + + + | Name | Relationship | Address | Phone | + + + + + | Lyubov Smalls | ECON | [place], [place] | | | | | [address] | | + + + + + | Lydia Palm | ECON | [place], [place] | | | | | [address] | | + + + + + | melinda METZ" | ECON | [place], [place] | | | [place]ba | | [address] | | + + + + + | Jose C Oconnor | ECON | [place] | | | | | [place] | | | | | [address] | | + + + + + Care Team Providers + +------+ + | Care Stamp Collector Name | Role | Phone | + +------+ + | No, Physician | PCP | Unavailable | + +------+ + Reason for Referral Diagnostic/Screening (Routine) +--------+--------+ + + + + | Status | Reason | Specialty | Diagnoses / | Referred By | Referred To | | | | | Procedures | Contact | Contact | +--------+--------+ + + + + | Closed | | Radiology | Diagnoses | Tres | [facility] | | | | | End-stage | Shad Raymundo MD | Intra Op [address] | | | | | renal | [address] | | | | | disease | [address] | [place], [place] | | | | | ([facility]) | [place] [address] | [address] | | | | | Procedures | [place], [place] | Phone: | | | | | IR | [address] | [phone] | | | | | Replacement | Phone: | Fax: | | | | | Tunneled | [phone] | [phone] | | | | | Cath | Fax: | | | | | | | [phone] | | +--------+--------+ + + + + Encounter Details +--------+ + + + + | Date | Type | Department | Care Team | Description | +--------+ + + + + | 11/04/ | Telephone | [facility] | Demar Ponce, | | | 2018 | | INTERVENTIONAL | RN | | | | | RADIOLOGY [address] | | | | | | [address] | | | | | | [place], [place] | | | | | | [address] | | | | | | [phone] | | | +--------+ + + + [...] this encounter Miscellaneous Notes Telephone Encounter - Demar Ponce RN - 11/04/2019 9:48 AM PSTINTERVENTIONAL RADIOLO GY REFERRAL Reason for Referral: Pt unable to run at bfr of 250 without flushing and repositioning. Procedure Requested: Catheter exchange Referring Physician: Santos Chi MD Office contact: Facility RN Phone: [phone] Imaging: XR chest 1 vw 08/26/2019 Patient Dx: ESRD Patient BMI: 32.94 Blood thinners: None Diabetic medications: None Any Red Flags?: doc umented in this encounter Plan of Treatment Not on filedocumented as of this encounter Results IR Replacement Tunneled Cath (11/05/2019 2:05 PM PST) + + | Specimen | + + | | + + + + | Addenda | + + | Addendum by Shad Joshua MD on 11/16/2019 9:36 AM ADDENDUM BEGINS Conscious | | sedation was administered. Signed by: Bianka Joshua David Sign Date/Time: | | 11/16/2019 9:32 AM ADDENDUM ENDS | + + + + + | Impressions | Performed At | + + + | Successful tunneled catheter exchange. Signed by: | [facility] | | Bianka Joshua David Sign Date/Time: 11/05/2019 5:21 PM | | + + + + + + | Narrative | Performed At | + + + | 1. | [facility] | | FLUORO-GUIDED RIGHT IJ TUNNELED CATHETER REPLACEMENT2. SUPERIOR | | | VENACAVOGRAM CLINICAL INFORMATION:39-year-old female with end-stage | | | renal disease status post left upperextremity fistula resection for | | | infection and right internal jugulartunneled central venous catheter | | | placement in 02/2018 [age],presenting with slow flows at dialysis. | | | COMPARISON:None. PROCEDURE:The risks, benefits and alternatives were | | | discussed with the patient;consent was obtained and placed in the | | | patient's chart. The risksincluded but were not limited to bleeding, | | | pneumothorax, infection,allergic reaction and . The patient was | | | then brought to the procedure room and placed in thesupine position | | | where the right side of the neck and chest weresterilely prepped and | | | draped in the usual fashion. A venogram wasperformed through the | | | existing catheter. After local anesthetic wasadministered, a small | | | incision was made with an 11 blade. Two glidewires were positioned | | | through the existing catheter. This catheter wasthen removed under | | | fluoroscopic guidance. The new catheter wasdelivered into the right | | | atrium under fluoroscopic guidance. Thecatheter was flushed. The | | | catheter was secured to the skin. A singlespot film was obtained over | | | the chest. Fluoro Time: 0.7 minutes The procedure was performed with | | | fentanyl only. The nurse administeredfentanyl and Ancef medications | | | during the examination and monitoredblood pressure, heart rate, and | | | pulse oximeter. Physician intraservicetime of 25 minutes. | | | FINDINGS:Venogram: Venogram through both lumens of the catheter | | | demonstrated noevidence of a fibrin sheath. The catheter was | | | successfully exchangedwith placement of a 19 cm tunneled dialysis | | | catheter with positionapproximately 2 cm further into the right atrium | | | than the priorcatheter. Intra procedural fluoroscopic imaging showed | | | the tip of the newlyplaced catheter in good position at the right | | | atrium. | | |Fluoro Time: 0.7 minutes | | | | | |The procedure was performed with fentanyl only. The nurse administered | | |fentanyl and Ancef medications during the examination and monitored | | |blood pressure, heart rate, and pulse oximeter. Physician intraservice | | |time of 25 minutes. | | | | | |FINDINGS: | | |Venogram: Venogram through both lumens of the catheter demonstrated no | | |evidence of a fibrin sheath. The catheter was successfully exchanged | | |with placement of a 19 cm tunneled dialysis catheter with position | | |approximately 2 cm further into the right atrium than the prior | | |catheter. | | | | | |Intra procedural fluoroscopic imaging showed the tip of the newly | | |placed catheter in good position at the right atrium. | | | | | + + + + + | Procedure Note | + + | Endy, Rad Results In - 11/05/2019 5:25 PM PST | | 1. FLUORO-GUIDED RIGHT IJ TUNNELED CATHETER REPLACEMENT | | 2. SUPERIOR VENACAVOGRAM | | | | CLINICAL INFORMATION: | | 39-year-old female with end-stage renal disease status post left upper | | extremity fistula resection for infection and right internal jugular | | tunneled central venous catheter placement in 02/2018 [age], | | presenting with slow flows at dialysis. | | | | COMPARISON: | | None. | | | | PROCEDURE: | | The risks, benefits and alternatives were discussed with the patient; | | consent was obtained and placed in the patient's chart. The risks | | included but were not limited to bleeding, pneumothorax, infection, | | allergic reaction and . | | | | The patient was then brought to the procedure room and placed in the | | supine position where the right side of the neck and chest were | | sterilely prepped and draped in the usual fashion. A venogram was | | performed through the existing catheter. After local anesthetic was | | administered, a small incision was made with an 11 blade. Two glide | | wires were positioned through the existing catheter. This catheter was | | then removed under fluoroscopic guidance. The new catheter was | | delivered into the right atrium under fluoroscopic guidance. The | | catheter was flushed. The catheter was secured to the skin. A single | | spot film was obtained over the chest. | | | | Fluoro Time: 0.7 minutes | | | | The procedure was performed with fentanyl only. The nurse administered | | fentanyl and Ancef medications during the examination and monitored | | blood pressure, heart rate, and pulse oximeter. Physician intraservice | | time of 25 minutes. | | | | FINDINGS: | | Venogram: Venogram through both lumens of the catheter demonstrated no | | evidence of a fibrin sheath. The catheter was successfully exchanged | | with placement of a 19 cm tunneled dialysis catheter with position | | approximately 2 cm further into the right atrium than the prior | | catheter. | | | | Intra procedural fluoroscopic imaging showed the tip of the newly | | placed catheter in good position at the right atrium. | | | | IMPRESSION: | | Successful tunneled catheter exchange. | | | | | | | | | | Signed by: Bianka Joshua David | | Sign Date/Time: 11/05/2019 5:21 PM | + + + +---------+ + + | Performing | Address | City[facility]State[facility] | Phone Number | | Organization | | | | + +---------+ + + | [facility] | | | | + +---------+ + + documented in this encounter Visit Diagnoses + + | Diagnosis | + + | End-stage renal disease (HCC) - Primary End stage renal disease | + + documented in this encounter
--- OUTSIDE RECORDS SUMMARY | ~2020-05-11 | XMS | Encounter Summary ---
Demographics + + + | Address | [address] | | | [place] [address] | + + + | Home Phone | | + + + | Preferred Language | Unknown | + + + | Marital Status | | + + + | Jain Affiliation | Unknown | + + + | Race | Unknown | + + + | Ethnic Group | Unknown | + + + Author + + + | Author | [facility] | | | and [place] | + + + | Organization | [facility] | | | and [place] | + + + | Address | Unknown | + + + | Phone | Unavailable | + + + Support + + + + + | Name | Relationship | Address | Phone | + + + + + | Lyubov Smalls | ECON | [place], [place] | | | | | [address] | | + + + + + | Lydia Palm | ECON | [place], [place] | | | | | [address] | | + + + + + | melinda METZ" | ECON | [place], [place] | | | [place]ba | | [address] | | + + + + + | Jose C Oconnor | ECON | [place] | | | | | [place] | | | | | [address] | | + + + + + Care Team Providers + +------+ + | Care Field Service Analyst Name | Role | Phone | + [...] | | | | | | | 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 | MD Ebony PETERS | | | | | OPERATING [address] | [place] [address] | | | | | DARIEL AGUILERAVD | [phone] | | | | | [place], [place] | | | | | | [address] | Sara Arita, | | | | | [phone] | MD Ebony PETERS | | | | | | [place] [address] | | | | | | [phone] | | | | | | | | +--------+ + + + + Anesthesia Record + + + + + | Procedure Name | Responsible | Anesthesia Start | Anesthesia Stop Time | | | Anesthesiologist | Time | | + + + + + | Resection of left | Louisa Ramos MD | 09/03/19 1544 | 09/03/19 1994 | | arm AV graft with | | | | | wound vac placement | | | | | (Left Arm Upper) | | | | + + + + + +----+---+ + + | Da | T | Event | Comment | | te | i | | | | | m | | | | | e | | | +----+---+ + + | 10 | 1 | An Checkout | Pre-use anesthesia machine/equipment checkout. | | /2 | 5 | | | | 5/ | 4 | | | | 20 | 5 | | | | 19 | | | | +----+---+ + + | | 1 | An Start | Reassessment prior to anesthesia induction/procedure. | | | 5 | | | | | 4 | | | | | 5 | | | +----+---+ + + | | 1 | Preoxygenat | | | | 6 | ed | | | | 0 | | | | | 5 | | | +----+---+ + + | | 1 | Antibiotic | | | | 6 | Given | | | | 0 | | | | | 5 | | | +----+---+ + + | | 1 | An | | | | 6 | Induction | | | | 0 | | | | | 7 | | | +----+---+ + + | | 1 | An | | | | 6 | Intubation | | | | 1 | | | | | 0 | | | +----+---+ + + | | 1 | Anesthesia | | | | 6 | Ready | | | | 1 | | | | | 4 | | | +----+---+ + + | | 1 | First | | | | 6 | Inc/Proc St | | | | 2 | | | | | 2 | | | +----+---+ + + | | 1 | [place] | | | | 7 | 43-degrees | | | | 0 | | | | | 1 | | | +----+---+ + + | | 1 | Extubation/ | | | | 7 | Airway LDA | | | | 3 | Removal | | | | 5 | | | +----+---+ + + | | 1 | an stop | | | | 7 | data | | | | 4 | | | | | 4 | | | +----+---+ + + | | 1 | An Stop | Patient handed off to recovery nurse. | | | 5 | | | | | 6 | | | +----+---+ + + | | 1 | Quick Note | Pt given 100 mcg fentanyl and 2 mg dilaudid since extubation with | | | 8 | | improvement in pain control. Plan to have continuous pulse | | | 0 | | oximetry and end tidal capnography x 2d | | | 1 | | | +----+---+ + + +------+ | Meds | +------+ + + + | Name | Total | + + + | midazolam 2 mg/mL | 2 mg | + + + | fentaNYL | 300 mcg | + + + | lidocaine 2% | 80 mg | + + + | propofol | 100 mg | + + + | dexamethasone | 8 mg | + + + | ondansetron | 4 mg | + + + | neostigmine | 2 mg | + + + | glycopyrrolate | 0.4 mg | + + + | etomidate | 30 mg | + + + | cisatracurium | 6 mg | + + + | phenylephrine | 1,090 mcg | + + + | heparin | 5,000 Units | + + + | metoprolol | 3 mg | + + + | HYDROmorphone | 2 mg | + + + | NS (Infusion) | 480 mL | + + + + + | [...] Removal | +--------+ + + + | Hemodi [...] +--------+ + + + | Wound | 08/26/191927; Incision; Right; | 08/26/191927 by | | | | chest | Marlene Ledezma RN | | +--------+ + + + | Periph | 02/23/19; 6; Right; Medial; | 02/23/19 171 by | 09/08/19901 by | | eral | Forearm; wsel-[id number]-[id number] catheter | Brandin Gray RN | Fartun Harris RN | | IV | system; 22 gauge; 1; rfa; | | | | | distraction, appears comfortable; | | | | | 09/08/19; 0902 | | | +--------+ + + + | Periph | 09/03/19; 1311; Right; Forearm; | 09/03/19 1311 by | 09/05/19 0600 by | | eral | 24 gauge; 09/05/19; 0600 | Rosmery Dunn, | Azeb Hernandez | | IV | | RN | Gloria RN | +--------+ + + + | Arteri | 09/03/19; 155 (created via | 09/03/19 155 by | 09/03/19 183 by | | al | procedure documentation); | Louisa Ramos MD | Sabrina Durham, | | Line | Alcohol; awake; Right; radial | | RN | | | artery; 20 gauge; continuous | | | | | blood pressure monitoring; | | | | | intradermal injection; ultrasound | | | | | guided; other (see comments); no | | | | | longer indicated; Dr. Mundo Ramos | | | | | inserted arterial line awake; | | | | | 09/03/19; 1830 | | | +--------+ + + + | Periph | 09/03/19; 1558 (created via | 09/03/19 1558 by | 09/08/19 1439 by | | eral | procedure documentation); Right; | Louisa Ramos MD | Fartun Harris RN | | IV | Upper Arm; 16 gauge; intradermal | | | | | injection; Dr. Mundo Ramos inserted | | | | | piv under US guidance; 09/08/19; | | | | | 1439 | | | +--------+ + + + | Airway | Placement Date: 09/03/19; | 09/03/19 161 by | 09/03/19 173 by | | | Placement Time: 1610 (created via | Ray Palumbo MD | Louisa Ramos MD | | | procedure documentation); | | | | | Removal Date: 09/03/19; Removal | | | | | Time: 1735 | | | +--------+ + + + documented in this encounter Social History + +-------+ +--------+------+ | Tobacco [...] + + documented as of this encounter [place] Notes Anesthesia Postprocedure Evaluation - Louisa Ramos MD - 09/03/2019 5:58 PM PDTFormatti ng of this note might be different from the original. ANESTHESIA POSTANESTHESIA EVALUATION Ramona Oconnor 39 y.o. female 1980 [id number] Procedure(s) Resection of left arm AV graft with wound vac placement (Left Arm Upper) Cooperates? Yes Mental Status Performs simple tasks. Respiratory Satisfactory - Airway patent (self maintained). Cardiovascular Satisfactory - Blood pressure and heart rate acceptable Temperature Satisfactory Pain Poorly controlled - unable to perform nerve block to arm d/t probable bacteremia N/V Control Satisfactory Hydration Satisfactory - No signs of dehydration Vitals Value Taken Time Temp 36.6 C (97.9 F) 09/03/2019 17:48 Pulse 73 09/03/2019 17:56 Resp 22 09/03/2019 17:56 BP 155/70 09/03/2019 17:55 Arterial Line BP Arterial Line BP 2 SpO2 100 % 09/03/2019 17:56 Vitals shown include unvalidated device data. Electronically signed by Louisa Ramos MD 09/03/2019 17:58 [facility] nesthesia Procedure Notes - Louisa Ramos MD - 09/03/2019 4:41 PM PDTAssoc iated Order(s): PIV Intravenous Line Placement 09/03/2019 15:58 Indication: routine patient was: awake Pain prevention: 1% lidocaine infiltration Side: right Vein location: upper arm Size: 16 g Localization technique: ultrasound Securement: transparent dressing and tape Placed by: Louisa Ramos MD Comments: Dr. Mundo Ramos inserted piv under US guidance Please see intraoperative grid for any additional medication documentation. nesthesia Procedure Notes - Louisa Ramos MD - 09/03/2019 4:40 PM PDTAssociated Order(s): ALineArterial Line Placement 09/03/2019 15:56 Indication: continuous blood pressure monitoring Prep solution: alcohol Patient was: awake Pain prevention: 1% lidocaine infiltration Laterality: right Artery:radial Size: 20 g Localization technique: ultrasound Securement: transparent dressing and tape Performed by: Louisa Ramos MD Comments: Dr. Mundo Ramos inserted arterial line awake Please see intraoperative grid for any additional medication documentation. nesthesia Procedure Notes - Ray Palumbo MD - 09/03/2019 4:38 PM PDTAssociated Order(s): AirwayDocument Bloc ks and LDA Procedures nesthesia Preprocedur e Evaluation - Ray Palumbo MD - 09/03/2019 3:26 PM PDT ANESTHESIA PREANESTHESIA EVALUATION Ramona Oconnor 39 y.o. female 1980 [id number] Procedure(s): Resection of left arm AV graft with wound vac placement (Left Arm Upper) Medical,anesthesia, drug, allergy histories reviewed, NPO status verified. ECG reviewed. Labs reviewed. (-) perioperative beta-nano/statin not given/taken, reason : not applicable/Not taking Beta-Nano. Review of Systems / Med History Anesthesia History Had a hypotensive episode last time she had a GA about 20 min after ind uction, that was not easily explained. Allergic reaction ? The echo done at the time showed good wall motion, and perhaps low volume.. Family Anesthesia History Family Anesthesia Negative except where noted below. Cardiovascular Exercise tolerance >4 METS (+) echocardiogram (-) catheterization, history of heart murmur (+) hypertension (+) Dysrhythmias: (-) congestive heart failure. (-) coronary artery disease. . Pulmonary Negative except where noted below. (-) pulmonary embolism.(+) sleep apnea.(-) tobacco use.(+) ex-smoker.(-) pleural effusion,. Gastrointestinal/Hepatic (+) diverticulitis. (-) bowel prep. (+) acid reflux and well controlled. Renal Last dialysis Friday from Right shoulder catheter.. (+) chronic renal insufficiency, end-stage renal disease. (+) hemodialysis dialysis type. Endocrine (-) corticosteroid therapy. (+) obesity: BMI (30-39) (-) Diabetes. Hematology/Other 11.2 Hg. Negative except where noted below. (+) anemia. Cancer Negative except where noted below. (-) breast cancer, bladder cancer. Obstetrics Negative except where noted below. Pediatric History Negative except where noted below. Neuromuscular (+) arm restrictions, chronic pain. Psychology Negative except where noted below. (-) substance abuse. Additional Comments: 08/26/19 ECHO CONCLUSIONS 1. Overall left ventricular systolic function is [...] pressures. 9. There is no pericardial effusion. EKG Normal sinus rhythm Right superior axis deviation Abnormal ECG When compared with ECG of 05-FEB-2019 17:30, QRS axis Shifted left T wave inversion no longer evident in Anterior leads Denies SOB, Chest pain, palpitations. Physical Exam Airway MP II, TM >3 FB, Mouth opening >2 FB. Neck: full ROM, extends >30 degrees. Jaw protrus ion normal. Facial hair present: No Dental grossly normal except where noted below. CV cardiovascular normal Rhythm regular. Rate normal. Pulm Clear to auscultation bilaterally. Neuro grossly normal. Anesthesia Plan ASA: 3 Type: General. Induction: Intravenous. Potential problems: None anticipated. Monitors: Standard ASA monitors. Postop Pain Management: Consent statement: Anesthetic plan, alternatives, risks and benefits discussed with patient. , discussed risks to teeth, drug reaction, heart problems, infection, nausea, perioperative CV events, r espiratory events, sore throat Consenting person understands and agrees to proceed. Electronically Signed by: Ray Palumbo MD ESig date/time: 09/03/2019 15:26 documented in this enc ounter Miscellaneous Notes Addendum Note - Sara Arita MD - 09/05/2019 7:28 PM PDTFormatting of this note mi ght be different from the original. Addendum created 09/05/191927 by Sara Arita MD Delete clinical note nesthesia Post- op Handoff - Louisa Ramos MD - 09/03/2019 5:58 PM PDTFormatting of this note might be d ifferent from the original. ANESTHESIA HANDOFF NOTE Ramona Oconnor 39 y.o. female 1980 [id number] Resection of left arm AV graft with wound vac placement (Left Arm Upper) HANDOFF NOTE Handoff Protocol Used: post-procedure handoff checklist completed The following were completed during the transfer of care: 1. Identification of patient 2. Identification of responsible practitioner (primary service) 3. Discussion of pertinent medical history 4. Discussion of the surgical/procedure course (procedure, reason for surgery, procedure pe rformed) 5. Intraoperative anesthetic management and issues/concerns 6. Expectations/plans for the early post-procedure period 7. Opportunity for questions and acknowledgement of understanding of report from receiving team Patient Location: Phase I Condition: awake Airway/O2: face mask with O2 Multimodal analgesia: multimodal analgesia not used between 6 hours prior to anesthesia sta rt to PACU discharge Analgesics allergies?: Patient does not have documented allergies to multiple classes of an algesics The significant anesthesia concerns and VS in Epic were reviewed with the receiving team. Louisa Ramos MD 09/03/2019 17:58 [facility] documented in this encounter Plan of Treatment Not on filedocumented as of this encounter Procedures + +--------+ + + + | Procedure Name | Priori | Date/Time | Associated Diagnosis | Comments | | | ty | | | | + +--------+ + + + | ANE PERIPHERAL IV | Routin | 09/03/2019 | | Results for this | | LINE NOTE | e | 4:41 PM | | procedure are in the | | | | PDT | | results section. | + +--------+ + + + | ANE ARTERIAL LINE | Routin | 09/03/2019 | | Results for this | | NOTE | e | 4:40 PM | | procedure are in the | | | | PDT | | results section. | + +--------+ + + + | ANE AIRWAY NOTE | Routin | 09/03/2019 | | Results for this | | | e | 4:38 PM | | procedure are in the | | | | PDT | | results section. | + +--------+ + + + documented in this encounter Results PIV (09/03/2019 4:41 PM PDT) + + + | Narrative | Performed At | + + + | Louisa Ramos MD 09/03/2019 16:42 Intravenous Line | | | Placement 09/03/2019 15:58 Indication: routine patient was: | | | awake Pain prevention: 1% lidocaine infiltration Side: right Vein | | | location: upper arm Size: 16 g Localization technique: ultrasound | | | Securement: transparent dressing and tape Placed by: Louisa Valadez | | | MD Richard Comments: Dr. Mundo Ramos inserted piv under US guidance | | | Please see intraoperative grid for any additional medication | | | documentation. | | + + + + + | Procedure Note | + + | Louisa Ramos MD - 09/03/2019 4:41 PM PDT | | Intravenous Line Placement | | | | 09/03/2019 15:58 | | Indication: routine | | patient was: awake | | Pain prevention: 1% lidocaine infiltration | | Side: right | | Vein location: upper arm | | Size: 16 g | | Localization technique: ultrasound | | Securement: transparent dressing and tape | | Placed by: Louisa Ramos MD | | Comments: Dr. Mundo Ramos inserted piv under US guidance | | | | | | Please see intraoperative grid for any additional medication documentation. | + + Andi (09/03/2019 4:40 PM PDT) + + + | Narrative | Performed At | + + + | Louisa Ramos MD 09/03/2019 16:41 Arterial Line Placement | | | 09/03/2019 15:56 Indication: continuous blood pressure monitoring | | | Prep solution: alcohol Patient was: awake Pain prevention: 1% | | | lidocaine infiltration Laterality: right Artery:radial Size: 20 g | | | Localization technique: ultrasound Securement: transparent dressing | | | and tape Performed by: Louisa Ramos MD Comments: Dr. Mundo Ramos | | | inserted arterial line awake Please see intraoperative grid for | | | any additional medication documentation. | | + + + + + | Procedure Note | + + | Louisa Ramos MD - 09/03/2019 4:40 PM PDT Arterial Line Placement | | | | 09/03/2019 15:56 | | Indication: continuous blood pressure monitoring | | Prep solution: alcohol | | Patient was: awake | | Pain prevention: 1% lidocaine infiltration | | Laterality: right | | Artery:radial | | Size: 20 g | | Localization technique: ultrasound | | Securement: transparent dressing and tape | | Performed by: Louisa Ramos MD | | Comments: Dr. Mundo Ramos inserted arterial line awake | | | | | | Please see intraoperative grid for any additional medication documentation. | + + Airway (09/03/2019 4:38 PM PDT) + + + | Narrative | Performed At | + + + | Ray Palumbo MD 09/03/2019 16:38 Document Blocks and LDA | | | Procedures | | + + + + + | Procedure Note | + + | Ray Palumbo MD - 09/03/2019 4:38 PM PDT Document Blocks and LDA Procedures | + + documented in this encounter Visit Diagnoses Not on filedocumented in this encounter Administered Medications + +--------+ +------+------+------+ | Medication Order | MAR | Action | Dose | Rate | Site | | | Action | Date | | | | + +--------+ +------+------+------+ | cisatracurium (NIMBEX) | Given | 09/03/20 | 6 mg | | | | injection Intravenous, PRN, | | 19 4:08 | | | | | Starting 09/03/19 at 1608, | | PM PDT | | | | | Anesthesia Intra-op | | | | | | + +--------+ +------+------+------+ +---+---+ | | | +---+---+ + +-------+ +------+---+---+ | dexamethasone (DECADRON) 4 | Given | 09/03/20 | 8 mg | | | | mg/mL injection Intravenous, | | 19 4:32 | | | | | PRN, Starting Fri09/03/19 at | | PM PDT | | | | | 1632, Anesthesia Intra-op | | | | | | + +-------+ +------+---+---+ +---+---+ | | | +---+---+ + +-------+ +-------+---+---+ | etomidate (AMIDATE) injection | Given | 09/03/20 | 30 mg | | | | Intravenous, PRN, Starting Fri | | 19 4:07 | | | | | 09/03/19 at 1607, Anesthesia | | PM PDT | | | | | Intra-op | | | | | | + +-------+ +-------+---+---+ +---+---+ | | | +---+---+ + +-------+ +---------+---+---+ | fentaNYL (PF) injection | Given | 09/03/20 | 100 mcg | | | | Intravenous, PRN, Starting Fri | | 19 5:40 | | | | | 09/03/19 at 1604, Anesthesia | | PM PDT | | | | | Intra-op | | | | | | + +-------+ +---------+---+---+ +-------+ +--------+---+---+ | Given | 09/03/20 | 50 mcg | | | | | 19 5:10 | | | | | | PM PDT | | | | +-------+ +--------+---+---+ | Given | 09/03/20 | 50 mcg | | | | | 19 4:45 | | | | | | PM PDT | | | | +-------+ +--------+---+---+ +---+---+ | | | +---+---+ + +-------+ +--------+---+---+ | glycopyrrolate (GIOVANI) | Given | 09/03/20 | 0.4 mg | | | | injection Intravenous, PRN, | | 19 5:11 | | | | | Starting Fri09/03/19 at 1711, | | PM PDT | | | | | Anesthesia Intra-op | | | | | | + +-------+ +--------+---+---+ +---+---+ | | | +---+---+ + +-------+ +--------+---+---+ | heparin 1,000 units/mL | Given | 09/03/20 | 5,000 | | | | injection Intravenous, PRN, | | 19 4:50 | Units | | | | Starting Fri09/03/19 at 1650, | | PM PDT | | | | | Anesthesia Intra-op | | | | | | + +-------+ +--------+---+---+ +---+---+ | | | +---+---+ + +-------+ +------+---+---+ | HYDROmorphone (DILAUDID) 2 | Given | 09/03/20 | 1 mg | | | | mg/mL injection Intravenous, | | 19 5:52 | | | | | PRN, Starting Fri09/03/19 at | | PM PDT | | | | | 1750, Anesthesia Intra-op | | | | | | + +-------+ +------+---+---+ +-------+ +------+---+---+ | Given | 09/03/20 | 1 mg | | | | | 19 5:50 | | | | | | PM PDT | | | | +-------+ +------+---+---+ +---+---+ | | | +---+---+ + +-------+ +-------+---+---+ | lidocaine (PF) 2% injection | Given | 09/03/20 | 80 mg | | | | Intravenous, PRN, Starting Fri 4:05 | | | | | 09/03/19 at 1605, Anesthesia | | PM PDT | | | | | Intra-op | | | | | | + +-------+ +-------+---+---+ +---+---+ | | | +---+---+ + +-------+ +------+---+---+ | metoprolol tartrate (LOPRESSOR) | Given | 09/03/20 | 3 mg | | | | injection Intravenous, PRN, | | 19 5:30 | | | | | Starting Fri09/03/19 at 1730, | | PM PDT | | | | | Anesthesia Intra-op | | | | | | + +-------+ +------+---+---+ +---+---+ | | | +---+---+ + +-------+ +------+---+---+ | midazolam (VERSED) 1 mg/mL | Given | 09/03/20 | 2 mg | | | | injection Intravenous, PRN, | | 19 3:45 | | | | | Starting Fri09/03/19 at 1545, | | PM PDT | | | | | Anesthesia Intra-op | | | | | | + +-------+ +------+---+---+ +---+---+ | | | +---+---+ + +-------+ +------+---+---+ | neostigmine (BLOXIVERZ) 1 mg/mL | Given | 09/03/20 | 2 mg | | | | injection Intravenous, PRN, | | 19 5:11 | | | | | Starting 09/03/19 at 1711, | | PM PDT | | | | | Anesthesia Intra-op | | | | | | + +-------+ +------+---+---+ +---+---+ | | | +---+---+ + +-------+ +------+---+---+ | ondansetron (ZOFRAN) injection | Given | 09/03/20 | 4 mg | | | | Intravenous, PRN, Starting Fri | | 19 5:11 | | | | | 09/03/19 at 1711, Anesthesia | | PM PDT | | | | | Intra-op | | | | | | + +-------+ +------+---+---+ +---+---+ | | | +---+---+ + + + +---------+-------+---+ | phenylephrine (PONCHO-SYNEPHRINE, | Rate/Dos | 09/03/20 | 20 | 0.1 | | | VAZCULEP) 10 mg/mL injection | e Change | 19 5:06 | mcg/min | mL/hr | | | Intravenous, CONTINUOUS PRN, | | PM PDT | | | | | Starting 09/03/19 at 1637, | | | | | | | Anesthesia Intra-op | | | | | | + + + +---------+-------+---+ + + +---------+-------+---+ | Rate/Dose Change | 09/03/20 | 30 | 0.2 | | | | 19 4:55 | mcg/min | mL/hr | | | | PM PDT | | | | + + +---------+-------+---+ | New Bag | 09/03/20 | 20 | 0.1 | | | | 19 4:37 | mcg/min | mL/hr | | | | PM PDT | | | | + + +---------+-------+---+ +---+---+ | | | +---+---+ + +-------+ +-------+---+---+ | propofol (DIPRIVAN) injection | Given | 09/03/20 | 40 mg | | | | Intravenous, PRN, Starting Fri | | 19 4:10 | | | | | 09/03/19 at 1607, Anesthesia | | PM PDT | | | | | Intra-op | | | | | | + +-------+ +-------+---+---+ +-------+ +-------+---+---+ | Given | 09/03/20 | 30 mg | | | | | 19 4:08 | | | | | | PM PDT | | | | +-------+ +-------+---+---+ | Given | 09/03/20 | 30 mg | | | | | 19 4:07 | | | | | | PM PDT | | | | +-------+ +-------+---+---+ +---+---+ | | | +---+---+ + +---------+ +---+---+---+ | sodium chloride 0.9% (NS) | New Bag | 09/03/20 | | | | | infusion Intravenous, CONTINUOUS | | 19 3:40 | | | | | PRN, Starting 09/03/19 at | | PM PDT | | | | | 1540, Anesthesia Intra-op | | | | | | + +---------+ +---+---+---+ +---+---+ | | | +---+---+ documented in this encounter
--- OUTSIDE RECORDS SUMMARY | ~2020-05-11 | XMS | Encounter Summary ---
Demographics + + + | Address | [address] | | | [place] [address] | + + + | Home Phone | | + + + | Preferred Language | Unknown | + + + | Marital Status | | + + + | Jew Affiliation | Unknown | + + + | Race | Unknown | + + + | Ethnic Group | Unknown | + + + Author + + + | Author | [facility] | | | and [place] | + + + | Organization | [facility] | | | and [place] | + + + | Address | Unknown | + + + | Phone | Unavailable | + + + Support + + + + + | Name | Relationship | Address | Phone | + + + + + | Lyubov Smalls | ECON | [place], [place] | | | | | [address] | | + + + + + | Lydia Palm | ECON | [place], [place] | | | | | [address] | | + + + + + | melinda METZ" | ECON | [place], [place] | | | reba | | [address] | | + + + + + | Jose C Oconnor | ECON | [place] | | | | | [place] | | | | | [address] | | + + + + + Care Team Providers + +------+ + | Care Escalator Attendant Name | Role | Phone | [...] | | | | | | | ([facility]) Wound | | | | [...] + + | 07/08/ | Surgery | [facility] | Qasim Pederson MD | LEFT AXILLA WOUND | | 2019 | | [facility] | [address] | DEBRIDEMENT, WASHOUT | | | | OPERATING ROOM [address] | [address] [place], [place] | AND POSSIBLE WOUND | | | | [address] | [address] | VAC PLACEMENT | | | | [place], [place] | | | | | | [address] | | | | | | [phone] | | | +--------+---------+ + + + [...] + + + | Blood Pressure | 115/64 | 07/08/2019 10:28 AM | | | | | PDT | | + + + + + | Pulse | 66 | 07/08/2019 10:28 AM | | | | | PDT | | + + + + + | Temperature | 36 C (96.8 F) | 07/08/2019 10:28 AM | | | | | PDT | | + + + + + | Respiratory Rate | 16 | 07/08/2019 10:28 AM | | | | | PDT | | + + + + + | Oxygen Saturation | 100% | 07/08/2019 10:28 AM | | | [...] chamber of the vacuum Date Last Reviewed: 12/11/201619990168-8453 [employer]. [address] [place] [address], [place] [address]. All righ ts reserved. This information is [...] For the first 24 hours after your janien viviana: ? Do not drive or use [...] Anexsia, Lorcet, Lorcet HD, Lorcet Plus, Lortab, [place], Verdrocet, Vicodin, Vi codin ES, Vicodin HP, [...] information carefully each time. Talk to your hvac technician regarding the use of this medicine in children. Special care may be needed. What side effects may I notice from receiving this medicine? Side effects that you should report to your doctor or health child care attendant school as soon as p ossible: allergic reactions [...] attention (report to your doctor or health child care attendant school if they continue or are bothersome): constipation [...] official disposal site. Contact the [facility] at [phone] or your [facility] government to find a site. If [...] this medicine? Tell your doctor or health child care attendant school if your pain does not go away, [...] not stand or sit up quickly, gold kp if you are an older patient. This [...] pharmacist, or health care provider. Copyright 2019 [email or web address] Scopolamine skin patches Brand Name: Transderm Scop [...] behind the other ear. Talk to your hvac technician regarding the use of this medicine in children. Special care may be needed. What side effects may I notice from receiving this medicine? Side effects that you should report to your doctor or health child care attendant school as soon as p ossible: agitation, nervousness, confusion blurred vision and other eye problems dizziness, drowsiness eye pain or redness in the whites of the eye hallucinations pain or difficulty passing urine skin rash, itching vomiting Side effects that usually do not require medical attention (report to your doctor or health child care attendant school if they continue or are bothersome): headache [...] pharmacist, or health care provider. Copyright 2019 [email or web address] documented in this encounter Medications at Time [...] h family. documented in this e ncounter H&P Notes Qasim Pederson MD - 07/08/2019 11:21 AM PDTFormatting of this note might be different from t brant original. [facility] Service: Vascular Surgery PRE-PROCEDURE HISTORY AND PHYSICAL Chief Complaint: Left axillary surgical wound dehiscence with graft exposure status post left axillary arter y and axillary vein AVG creation History of Present Illness: Ramona Oconnor is a 39 y.o. female patient who is status post creation of arteriove nous graft with left axillaryartery and axillary vein using 7mm Bovine carotid graft by Dr Iris Pederson on 05/06/2019. The patient developed surgical wound dehiscence of her left axillary wou nd with visible graft exposure. The patient denies fever or chills. The patient is receiving hemodialysis on Friday, Friday and Friday. She continues to use her right sided hemodial ysis catheter for dialysis access. The patient underwent successful wound debridement dn wou nd vac placement on 05/26/2019 and her left axilla wound has been healing. However, her wound vac was discontinued at the wound care center 2 weeks ago. The patient returned to the [facility] surgery clinic for follow up and was found to have enlarging axillary wound. After a juliano lau discussion with the patient, the decision was made to proceed to left axillary wound wash out, debridement and wound vac placement. The patient understand that the risk of graft infe ction and losing her AVG is high but would like to try to salvage her AVG. I also emphasized to her the importance of continuing wound vac to promote granulation tissue and wound heali ng. Past Medical History: Acid reflux disease, Disorder of kidney and ureter, Diverticulitis (01/05/2019), Diverticulo sis, ESRD on peritoneal dialysis (HCC) (10/28/2015), GERD (gastroesophageal reflux disease), Hypercalcemia (09/07/2017), Hyperphosphatemia (10/28/2015), Hypertension, Hypocalcemia (), Hypokalemia (06/04/2017), Itching (10/28/2015), Metabolic acidosis (10/28/2015), Ob esity, Other chronic pain, Peritonitis associated with peritoneal dialysis (HCC) (01/24/2017 ), Peritonitis due to infected peritoneal dialysis catheter ([facility]) (12/08/2018), Range of gabrielle on deficit, Renal insufficiency, Secondary hyperparathyroidism ([facility]), and Uremia (10/28/2015 ). Past Surgical History: Abdomen surgery (10/27/2016); Peritoneal Catheter Placement/Removal (10/28/2015); Upper gas trointestinal endoscopy (09/10/2017); Catheter Removal (02/04/2019); [place] tooth extraction; other surgical history (Left, 03/11/2019); other surgical history; other surgical history (Rig ht, 01/2019); other surgical history (Left, 05/06/2019); other surgical history (Left, 019); and Arterial bypass surgry. Allergies: No Known Allergies Medications: Medication Sig omeprazole (PRILOSEC) 20 mg capsule Take 20 [...] once daily in the evening with meals. Social History: Social History Marital status: She reports that she quit smoking about 3 years ago. She smoked 0.25 packs per day. She has never used smokeless tobacco. She reports that she uses drugs, including Marijuana. She rep orts that she does not drink alcohol. Family History: Problem Relation Other (see comments) Mother Diabetes Father Breast cancer Maternal Grandmother Paras prince Neg Hx Review of Systems: General: negative for - night sweats, weight [...] of hallucinations. Positive for history of depression. Physical Exam Vitals: 07/08/19 1028 BP: 115/64 Pulse: 66 Resp: 16 Temp: 36 C (96.8 F) Constitutional: Well nourished, no signs of distress HENT: Non icteric sclerae, oropharynx clear. Normocephalic and atraumatic. Cardiovascular: Normal rate, regular rhythm. Pulmonary/Chest: No respiratory distress. Right chest tunneled hemodialysis catheter in wilder ce. Abdominal: Soft. No abdominal distension or tenderness. Musculoskeletal: Normal range of motion. Extremities: No cyanosis or clubbing. Neurological: She is alert and oriented. VASCULAR: normal thrill in left medial upper arm side of the graft. Open wound in left axil jen, 2 x 2 x 1cm, pink granulation tissue at wound base, 5mm x 5mm AVG exposed. Assessment: Left axillary surgical wound dehiscence with graft exposure status post AVG creation. The p atient will benefit from left axillary wound exploration, debridement, washout with possible wound vac placement in the operating room. I've discussed with the patient regarding the be nefits and risks of above treatment plan. The purpose of the procedure is to remove the sour ce of infection and to promote wound healing. The patient is aware of the risk of bleeding, infection, non healing wound, myocardial infarct, stroke and . The patient have accepte d the above treatment recommendations. The patient will undergo left axillary wound explorat ion, debridement, washout and wound vac placement at [facility] Room on 07/08/2019. Qasim Pederson MD documented in this encou nter Miscellaneous Notes Op Note - Qasim Pederson MD - 07/08/2019 12:59 PM [facility] Service: Vascular Surgery Procedure Note NAME: Ramona Oconnor BILLING #: [id number] MR #: [id number] : 1980 DATE OF PROCEDURE: 07/08/2019 SURGEON: Qasim Pederson MD MONORAIL CHARGER OPERATOR: Man Jeronimo PA-C (ARLYN was required to help with positioning, prepping and d raping, retraction and closure). PREOPERATIVE DIAGNOSIS: 1. Left arm AV graft wound dehiscence POSTOPERATIVE DIAGNOSIS: Same PROCEDURES: 1. Left arm axillary wound exploration, debridement, washout with pulse lavage 2. Left arm wound vac placement (area of wound vac coverage 2cm x 2cm x 1cm) ANESTHESIA: General anesthesia SPECIMEN: None ESTIMATED BLOOD LOSS: Less Than 10 ml (Minimal) BLOOD ADMINISTERED: None COMPLICATIONS: None CONDITION: Stable INDICATIONS: This is a 39 y.o. female patient who recently underwent a left arm AV fistula creation for dialysis access purposes. The patient developed dehiscence of her left axilla i ncision. She underwent successful wound debridement, washout and wound vac placement on 05/26. However, her wound vac was discontinued at the wound care center. Her axillary wound is worsening. Due to the underlying AVG, we plan to perform wound exploration with evaluatio n of the wound, possible washout, debridement and wound vac placement. Risks and benefits of th procedure were discussed. The purpose of the procedure is to clean the wound and use the wound vac to increase granulation tissue and to improve wound healing. The risk of the proc edure includes bleeding, AVG infection, nerve injury, venous thrombosis, arterial occlusion, pulmonary embolism, arteriovenous graft thrombosis, heart attack, stroke, respiratory failu re and . OPERATION: The patient was brought to the operating room and placed on the operating table in the supine position. General anesthesia was given. The patient s left arm was prepped s terilely and draped in the standard fashion. Appropriate time out was performed whereby the patient and site of surgery were identified. We identified the AVG in the left axillary arm wound measuring 5mm x 5mm. There are surrounding granulation tissue in the left axillary wou nd which is measuring 4cm x 2cm x 2cm. The wound edge skin and subcutaneous tissue was sharply excised using skin scalpel and elec trocautery. Hemostasis was achieved using electrocautery. The wound was debrided with curett e until a clean wound was achieved. Next pulsed lavage fluid containing antibiotic solution was used to irrigate the wound. Given the large cavity in her wound and poor wound healing, we decided that wound vac would be necessary to help increase granulation to heal this wound . The wound over the AVG was closed using 3-0 Nylon suture in interrupted vertical mattress fashion. The remaining of the wound with subcutaneous tissue base measured 2cm x 2cm x 1cm. Therefore we placed a wound vac sponge in the wound following by wound vac tubing placement which was connected to continual wound vac drainage. Standard tapes and dressings were appli ed for wound vac placement. The area of wound vac coverage is 2cm by 2cm in area and 1cm in depth. The patient tolerated the procedure well without any complication. I was present thro ughout the entire operation. Qasim Pederson MD documente [...] | | | | 11:32 AM | ([facility]) Wound | | | | [...] | performed at [facility];[address] | | LABORATORY | | | | [address]ar[address];[place] | | | | | | [address] | | | | + + + + + + + + | Specimen | + + | Blood | + + + + + + + | Performing | Address | City/State/Zipcode | Phone Number | | Organization | | | | + + + + + | [facility] | [address] | [place] [address] | [phone] | + + + + + documented [...] | | | | | | longer, [id number] use of | | | | | [...] | | | | | | | [id number] use of at least | | | [...]
--- OUTSIDE RECORDS SUMMARY | ~2020-05-11 | XMS | Encounter Summary ---
Demographics + + + | Address | [address] | | | [place] [address] | + + + | Home Phone | | + + + | Preferred Language | Unknown | + + + | Marital Status | | + + + | Episcopal Affiliation | Unknown | + + + [...] [place], [place] | | | | | [address] | | + + + + + | Lydia Palm | ECON | [place], [place] | | | | | [address] | | + + + + + | melinda METZ" | ECON | [place], [place] | | | reba | | [address] | | + + + + + | Jose C Oconnor | ECON | [place] | | | | | [place] | | | | | [address] | | + + + + + Care Team Providers + +------+ + | Care Dipper Machine Operator Name | Role | Phone | + +------+ + | Juan F Whitley DO | PCP | | + +------+ + Encounter Details +--------+ + + + + | Date | Type | Department | Care Team | Description | +--------+ + + + + | 05/26/ | Hospital | [facility] | Qasim Ryan MD | | | 2019 - | Encounter | [facility] | [address] | | | | | CLINICAL DECISION | [place] | | | 05/27/ | | [address] [place] | [address] | | | 2019 | | [place] | | | | | | [address] | | | | | | [phone] | | | +--------+ + + + [...] | Blood Pressure | 106/62 | 05/27/2019 11:13 AM | | | | | PDT | | + + + + + | Pulse | 68 | 05/27/2019 11:13 AM | | | | | PDT | | + + + + + | Temperature | 36.5 C (97.7 F) | 05/27/2019 11:13 AM | | | | | PDT | | + + + + + | Respiratory Rate | 19 | 05/27/2019 11:13 AM | | | | | PDT | | + + + + + | Oxygen Saturation | - | - | | + + + + + | Inhaled Oxygen | - | - | | | Concentration | | | | + + + + + | Weight | 82.3 kg (181 lb 7 | 05/27/2019 11:13 AM | | | | oz) | PDT | | + + + + + | Height | 157.5 cm (5' 2") | 05/27/2019 11:13 AM | | | | | PDT | | + + + + + | Body Mass Index | 33.19 | 05/27/2019 11:13 AM | | | | | PDT [...] by | | 0 | 05/26/20 | 10/19/201 | | oxyCODONE-acetaminop | mouth every 6 [...] oxyCODONE-acetaminop | mouth every 4 (four) | | | 19 | 9 | | hen (PERCOCET) 5-325 | hours [...] Progress Notes Conversion Transaction, Provider Unknown - 05/27/2019 11:45 AM PDTFormatting of this note m ight be different from the original. Nurse Progress Note by Karen Charlton RN at 05/27/19 1145 Author: Karen Charlton RN Service: (none) Author Type: Registered Nurse Filed: 05/27/19 1146 Date of Service: 05/27/191144 Status: Signed Splicing Supervisor: Karen Charlton RN (Registered Nurse) Discharge instructions discussed with patient and family. All questions and concerns answer ed, in home wound care to follow up. Patient stable at time of discharge. IV removed and ban dage applied. All belongings with patient. Patient discharged via ambulation to [facility] with family. onver patric Transaction, Provider Unknown - 05/27/2019 7:50 AM PDT Nurse Progress Note by Zhane Ghotra RN at 05/27/19749 Author: Zhane Ghotra RN Service: (none) Author Type: Registered Nurse Filed: 05/27/1936 Date of Service: 05/27/19749 Status: Signed Splicing Supervisor: Zhane Ghotra RN (Registered Nurse) Pt awaken for medication and assessment. Pt reporting nausea. Medication provided for relie f of nausea pt becoming tearful. Pt states "every morning it is the same thing" and "feels l tu a bucket was thrown over me with nausea." Pt comforted and assisted back to supine posit ion. Pt states similar morning has been happening for a long time. Pt confirms she has home medications for nausea available to her. Pt continues to be tearful. Pt found to appear to b e asleep 15 minutes later, approximately. onver patric Transaction, Provider Unknown - 05/27/2019 5:54 AM PDT Nurse Progress Note by Nadege Gupta RN at 05/27/19 0554 Author: Nadege Gupta RN Service: (none) Author Type: Registered Nurse Filed: 05/27/19 0555 Date of Service: 05/27/19 05 Status: Signed Splicing Supervisor: Nadege Gupta RN (Registered Nurse) End of shift chart audit complete. onver patric Transaction, Provider Unknown - 05/27/2019 1:40 AM PDT Pharmacy Note by Shelli Bustos RPH at 05/27/19139 Author: Shelli Bustos RPH Service: Pharmacy Author Type: Pharmacist Filed: 05/27/19139 Date of Service: 05/27/19139 Status: Signed Splicing Supervisor: Shelli Bustos RPH (Pharmacist) Clinical Pharmacy Note: Renal Monitoring Height: 157.5 cm Weight: 82.3 kg Patient is on hemodialysis - Usual schedule: Mon-Fri-Fri Currently, there are no medications needing to be adjusted. Pharmacy will continue to monit or for changes in medication orders and adjust accordingly. [place] RANDALL 05/27/2019 1:39 AM onver patric Transaction, Provider Unknown - 05/26/2019 10:00 PM PDT Nurse Progress Note by Nadege Gupta RN at 05/26/192199 Author: Nadege Gupta RN Service: (none) Author Type: Registered Nurse Filed: 05/27/19600 Date of Service: 05/26/192199 Status: Signed Splicing Supervisor: Nadege Gupta RN (Registered Nurse) Patient ambulated in her room with RN assistance. Pt tolerated well with no dizziness repor medina. Pt also urinated in the bathroom. Wound vac patent to L axillary with 125 mmHG continuo us pressure. Dressing CDI. Care plan updated with pt, is agreeable. All questions were answe red. onver patric Transaction, Provider Unknown - 05/26/2019 6:40 PM PDT Nurse Progress Note by Richard Alvarez RN at 05/26/19 9640 Author: Richard Alvarez RN Service: General Surgery Author Type: Registered Nu rse Filed: 05/26/191841 Date of Service: 05/26/191839 Status: Signed Splicing Supervisor: Richard Alvarez, RN (Registered Nurse) Patient in phase 2. Got report from RN. Patient c/o nausea so medicated PRN medication for nausea. Patient's family at her side. Able to slightly move arm and feels pain from it. Will place sling when up. Good cap refill to fingers. Wound vac intaact with few drops of blood noted. Has hospital wound vac but not portable. Call to OR to find a portable vac for patien t to be d/c home. Went over d.c instructions with family. D/C instructions/education included: -Post Anesthesia care -Pain medication education -Anti-nuasea medication education -Antibiotic medication education -Stool softner education -Bowel protocol -Monitoring intake/output -Incision care -Dressing care -wound vac care -sling care -Infection monitoring including signs and symptoms of infection. -DVT education -Activity restriction -Diet -When to call MD/call 911 -Make/keep appointments. States understanding. Waiting for portable unit 1814> Unable to locate a [facility] portable unit in house per tony [place] paul. Have [facility] portabl e unit on hand. Was told to contact Dr Ryan for orders to change unit OR would need admission for night until [facility] could deliver portable unit. Call to Dr Ryan. Dr ryan anticipates longer use of unit >7 days and [facility] will not be ideal for patient. Wants [facility] specifically. Order to admit patient. Patient and family made aware of plans for admission. docume nted in this encounter H&P Notes Qasim Ryan MD - 05/26/2019 1:23 PM PDTFormatting of this note might be different from t he original. Interval H&P Note by Qasim Ryan MD at 05/26/19 1326 Author: Qasim Ryan MD Service: Vascular Surgery Author Type: Physician Filed: 05/26/19 7471 Date of Service: 05/26/191322 Status: Signed Splicing Supervisor: Qasim Ryan MD (Physician) [facility] Service: Vascular Surgery Pre-Operative History & Physical Interval Update There have been no significant clinical changes since the completion of the above H&P. Tod ays physical assessment showed HP update PE: Normal appearance, alert and oriented X3 and r espiratory effort normal. Qasim Ryan MD 05/26/2019 *CORE MEASURES REMINDER: If the patient has a known or suspected infection prior to surger y, please add diagnosis to the problem list (consider: Infection 136.9). Source Note Author: Kylie Alves DNP Service: (none) Author Type: Nurse Practitioner Filed: 05/25/19 9350 Date of Service: 05/25/19 1600 Status: Signed Splicing Supervisor: Kylie Alves DNP (Nurse Practitioner) [facility] Service: Vascular Surgery PRE-PROCEDURE HISTORY AND PHYSICAL Chief Complaint: left axillary surgical wound dehiscence with graft exposure status post left axillary arter y and axillary vein AVG creation History of Present Illness: Ramona Oconnor is a 39 y.o. female patient who is status post creation of arteriove nous graft with left axillary artery and axillary vein using 7mm Bovine carotid graft by Dr. Ryan on 05/06/2019. The patient developed surgical wound dehiscence of her left axillary woun d with visible graft exposure. The patient denies fever or chills. The patient is receiving hemodialysis on Friday, Friday and Friday. She continues to use her right sided hemodialy sis catheter for dialysis access. Past Medical History: Past Medical History Diagnosis Date Diverticulitis 01/05/2019 [...] 10/25/15 showed normal sized kidneys. 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 Peritonitis associated with peritoneal dialysis (HCC) 01/24/2017 Peritonitis due to infected peritoneal dialysis catheter (HCC) 12/08/2018 Secondary hyperparathyroidism (HCC) Uremia 10/28/2015 Past Surgical History: Past Surgical History Procedure Laterality Date AV FISTULA PLACEMENT Left 03/11/2019 Procedure: AV FISTULA; Surgeon: Qasim Ryan MD; Location: [facility]; Service: Vascu lar; Laterality: Left; AV GRAFT CREATION Left 05/06/2019 Procedure: AV GRAFT CREATION; Surgeon: Qasim Ryan MD; Location: [facility]; Service : Vascular; Laterality: Left; bovine carotid graft CATHETER REMOVAL N/A 02/04/2019 Procedure: DIALYSIS CATHETER - REMOVAL; Surgeon: Qasim Ryan MD; Location: [facility] ; Service: Vascular; Laterality: N/A; Infected PD catheter removal dialysis port Right 01/2019 chest wall ESOPHAGOGASTRODUODENOSCOPY N/A 09/10/2017 Procedure: ESOPHAGOGASTRODUODENOSCOPY; Surgeon: Beena Peters MD; Location: [facility]; Service: Gastroenterology; Laterality: N/A; HARDWARE PRESENT PERITONEAL CATHETER INSERTION N/A 10/28/2015 Procedure: LAPAROSCOPIC - PERITONEAL DIALYSIS CATH INSERTION; Surgeon: Mundo Ramos MD; Lo cation: [facility]; Service: Vascular; Laterality: N/A; WISDOM TOOTH EXTRACTION Allergies: No Known Allergies Medications: Current Outpatient Prescriptions on File Prior to Visit Medication Sig omeprazole (PRILOSEC) 20 MG capsule Take 20 mg by mouth every morning before breakfast. promethazine (PHENERGAN) 25 MG tablet Take 25 mg by mouth every 6 (six) hours as needed for Nausea. sevelamer (RENVELA) 800 MG tablet Take 1,600-2,400 mg by mouth See Admin Instructions. Take two tablets by mouth once daily in the morning, then two tablets by mouth once daily in the afternoon, then three tablets by mouth once daily in the evening with meals. oxyCODONE-acetaminophen (PERCOCET) 5-325 MG per tablet Take 1 tablet by mouth every 4 ( four) hours as needed. (Patient not taking: Reported on 05/25/2019) Social History: Social History Social History Marital status: Spouse name: N/A Number of children: 0 Years of education: N/A Occupational History Not on file. Social History Main Topics Smoking status: Former Smoker Packs/day: 0.25 Years: 15.00 Quit date: 10/10/2015 Smokeless tobacco: Never Used Alcohol use 0.0 oz/week Comment: occ Drug use: Yes Types: Marijuana Comment: inhale oil CBD daily Sexual activity: Yes Partners: Male control/ protection: None Other Topics Concern Not on file Social History Narrative She lives at home and is a former smoker. Family History: Family History Problem Relation Age of Onset Other (see comments) Mother healthy Diabetes Father Breast cancer Maternal Grandmother Paras gomezm Neg Hx Review of Systems: General: negative for - night sweats, weight gain or weight loss Ophthalmic: negative for - decreased vision, double vision or loss of vision ENT: negative for - nasal congestion, oral lesions, sinus pain, earache, ear discharge, o r tinnitus. Neck: negative for - neck pain, neck stiffness, swollen gland, thyroid enlargement. She had chronic neck pain. Respiratory: no cough, shortness of breath, wheezing, sputum production, or hemoptysis. Cardiovascular: no chest pain, orthopnea, dyspnea [...] Positive for history of depression. Physical Exam BP 106/67 (BP Location: Right upper arm, Patient Position: Sitting) | Pulse 76 | SpO2 98% Constitutional: Well nourished, no signs of distress HENT: Non icteric sclerae, oropharynx clear. Normocephalic and atraumatic. Cardiovascular: Normal rate, regular rhythm. Pulmonary/Chest: No respiratory distress. Tunneled catheter in place. Abdominal: Soft. No abdominal distension or tenderness. Musculoskeletal: Normal range of motion. Extremities: No cyanosis or clubbing. Neurological: She is alert and oriented. VASCULAR: normal thrill in left medial upper arm side of the graft, faint thrill in left la teral upper arm side of the graft. Open wound in left axillary, 2 x 5 x 3 cm, yellow slough at wound base, AVG exposed. Assessment: left axillary surgical wound dehiscence with graft exposure status post AVG creation . The patient will benefit from left axillary wound exploration, debridement, washout with possibl e wound vac placement in the operating room. I've discussed with the patient regarding the b enefits and risks of above treatment plan. The purpose of the procedure is to remove the christ rce of infection and to promote wound healing. The patient is aware of the risk of bleeding, infection, non healing wound, myocardial infarct, stroke and . The patient have accept ed the above treatment recommendations. The patient will undergo left axillary wound explora tion, debridement, washout and wound vac placement at [facility] Operati ng Room on 05/26/2019. Kylie Alves DNP Kylie Mueller DNP - 019 4:00 PM PDT H&P (View-Only) by Kylie Alves DNP at 05/25/191599 Author: Kylie Alves DNP Service: (none) Author Type: Nurse Practitioner Filed: 05/25/19 1719 Date of Service: 05/25/191599 Status: Signed Splicing Supervisor: Kylie Alves DNP (Nurse Practitioner) [facility] Service: Vascular Surgery PRE-PROCEDURE HISTORY AND PHYSICAL Chief Complaint: left axillary surgical wound dehiscence with graft exposure status post left axillary arter y and axillary vein AVG creation History of Present Illness: Ramona Oconnor is a 39 y.o. female patient who is status post creation of arteriove nous graft with left axillary artery and axillary vein using 7mm Bovine carotid graft by Dr. Ryan on 05/06/2019. The patient developed surgical wound dehiscence of her left axillary woun d with visible graft exposure. The patient denies fever or chills. The patient is receiving hemodialysis on Friday, Friday and Friday. She continues to use her right sided hemodialy sis catheter for dialysis access. Past Medical History: Past Medical History Diagnosis Date Diverticulitis 01/05/2019 [...] 10/25/15 showed normal sized kidneys. 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 Peritonitis associated with peritoneal dialysis (HCC) 01/24/2017 Peritonitis due to infected peritoneal dialysis catheter (HCC) 12/08/2018 Secondary hyperparathyroidism (HCC) Uremia 10/28/2015 Past Surgical History: Past Surgical History Procedure Laterality Date AV FISTULA PLACEMENT Left 03/11/2019 Procedure: AV FISTULA; Surgeon: Qasim Ryan MD; Location: [facility]; Service: Vascu lar; Laterality: Left; AV GRAFT CREATION Left 05/06/2019 Procedure: AV GRAFT CREATION; Surgeon: Qasim Ryan MD; Location: [facility]; Service : Vascular; Laterality: Left; bovine carotid graft CATHETER REMOVAL N/A 02/04/2019 Procedure: DIALYSIS CATHETER - REMOVAL; Surgeon: Qasim Ryan MD; Location: [facility] ; Service: Vascular; Laterality: N/A; Infected PD catheter removal dialysis port Right 01/2019 chest wall ESOPHAGOGASTRODUODENOSCOPY N/A 09/10/2017 Procedure: ESOPHAGOGASTRODUODENOSCOPY; Surgeon: Beena Peters MD; Location: [facility]; Service: Gastroenterology; Laterality: N/A; HARDWARE PRESENT PERITONEAL CATHETER INSERTION N/A 10/28/2015 Procedure: LAPAROSCOPIC - PERITONEAL DIALYSIS CATH INSERTION; Surgeon: Mundo Ramos MD; Lo cation: [facility]; Service: Vascular; Laterality: N/A; WISDOM TOOTH EXTRACTION Allergies: No Known Allergies Medications: Current Outpatient Prescriptions on File Prior to Visit Medication Sig omeprazole (PRILOSEC) 20 MG capsule Take 20 mg by mouth every morning before breakfast. promethazine (PHENERGAN) 25 MG tablet Take 25 mg by mouth every 6 (six) hours as needed for Nausea. sevelamer (RENVELA) 800 MG tablet Take 1,600-2,400 mg by mouth See Admin Instructions. Take two tablets by mouth once daily in the morning, then two tablets by mouth once daily in the afternoon, then three tablets by mouth once daily in the evening with meals. oxyCODONE-acetaminophen (PERCOCET) 5-325 MG per tablet Take 1 tablet by mouth every 4 ( four) hours as needed. (Patient not taking: Reported on 05/25/2019) Social History: Social History Social History Marital status: Spouse name: N/A Number of children: 0 Years of education: N/A Occupational History Not on file. Social History Main Topics Smoking status: Former Smoker Packs/day: 0.25 Years: 15.00 Quit date: 10/10/2015 Smokeless tobacco: Never Used Alcohol use 0.0 oz/week Comment: occ Drug use: Yes Types: Marijuana Comment: inhale oil CBD daily Sexual activity: Yes Partners: Male control/ protection: None Other Topics Concern Not on file Social History Narrative She lives at home and is a former smoker. Family History: Family History Problem Relation Age of Onset Other (see comments) Mother healthy Diabetes Father Breast cancer Maternal Grandmother Paras hypertherm Neg Hx Review of Systems: General: negative for - night sweats, weight gain or weight loss Ophthalmic: negative for - decreased vision, double vision or loss of vision ENT: negative for - nasal congestion, oral lesions, sinus pain, earache, ear discharge, o r tinnitus. Neck: negative for - neck pain, neck stiffness, swollen gland, thyroid enlargement. She had chronic neck pain. Respiratory: no cough, shortness of breath, wheezing, sputum production, or hemoptysis. Cardiovascular: no chest pain, orthopnea, dyspnea [...] Positive for history of depression. Physical Exam BP 106/67 (BP Location: Right upper arm, Patient Position: Sitting) | Pulse 76 | SpO2 98% Constitutional: Well nourished, no signs of distress HENT: Non icteric sclerae, oropharynx clear. Normocephalic and atraumatic. Cardiovascular: Normal rate, regular rhythm. Pulmonary/Chest: No respiratory distress. Tunneled catheter in place. Abdominal: Soft. No abdominal distension or tenderness. Musculoskeletal: Normal range of motion. Extremities: No cyanosis or clubbing. Neurological: She is alert and oriented. VASCULAR: normal thrill in left medial upper arm side of the graft, faint thrill in left la teral upper arm side of the graft. Open wound in left axillary, 2 x 5 x 3 cm, yellow slough at wound base, AVG exposed. Assessment: left axillary surgical wound dehiscence with graft exposure status post AVG creation . The patient will benefit from left axillary wound exploration, debridement, washout with possibl e wound vac placement in the operating room. I've discussed with the patient regarding the b enefits and risks of above treatment plan. The purpose of the procedure is to remove the christ rce of infection and to promote wound healing. The patient is aware of the risk of bleeding, infection, non healing wound, myocardial infarct, stroke and . The patient have accept ed the above treatment recommendations. The patient will undergo left axillary wound explora tion, debridement, washout and wound vac placement at [facility] Operati ng Room on 05/26/2019. Kylie Alves DNP documented in this encount er Miscellaneous Notes Plan of Care - Conversion Transaction, Provider Unknown - 05/27/2019 8:46 AM PDT Plan of Care by Zhane Ghotra RN at 05/27/19 0846 Author: Zhane Ghotra RN Service: (none) Author Type: Registered Nurse Filed: 05/27/19845 Date of Service: 05/27/19845 Status: Signed Splicing Supervisor: Zhane Ghotra RN (Registered Nurse) Problem: Daily Care Goal: Daily care needs are met Assess and monitor ability to perform self care and identify potential discharge needs. Outcome: Progressing Pt maintaining independence in care, when able. Problem: Psychosocial Needs Goal: Demonstrates ability to cope with hospitalization/illness Assess and monitor patients ability to cope with his/her illness. Outcome: Not Progressing Pt tearful this AM (see prog note by this RN). Problem: Discharge Barriers Goal: Patient's discharge needs are met Collaborate with interdisciplinary team and initiate plans and interventions as needed. Outcome: Progressing Anticipated discharge today for hemodialysis appointment at 1300. Wound care team to see pt and change wound vac. lan o f Care - Conversion Transaction, Provider Unknown - 05/26/2019 9:00 PM PDTFormatting of thi s note might be different from the original. Plan of Care by Nadege Gupta RN at 05/26/192099 Author: Nadege Gupta RN Service: (none) Author Type: Registered Nurse Filed: 05/26/192099 Date of Service: 05/26/192099 Status: Signed Splicing Supervisor: Nadege Gupta RN (Registered Nurse) Problem: Pain Goal: Patient's pain/discomfort is manageable Assess and monitor patient's pain using appropriate pain scale. Collaborate with interdisci plinary team and initiate plan and interventions as ordered. Re-assess patient's pain level approximately 1-2 hours after pain management intervention. Premedicate as needed. Outcome: Progressing Patient is alert and orientedx4, educated pt to report to RN any increasing pain for pain m anagement intervention with verbalized understanding. Problem: Safety Goal: Patient will be injury [...] policy, and non-skid footwear provided. Outcome: Progressing Call light and overbed table within reach. Bed in low position, wheels locked and side rail s up. ID band on. Non skid socks on. Problem: Daily Care Goal: Daily care needs are met Assess and monitor ability to perform self care and identify potential discharge needs. Outcome: Progressing Patient will be assisted with ADLs as needed. p Not e - Dacia, Qasim Porras MD - 05/26/2019 4:11 PM PDTFormatting of this note might be different fro m the original. Op Note by Qasim Ryan MD at 05/26/19 1611 Author: Qasim Ryan MD Service: Vascular Surgery Author Type: Physician Filed: 05/26/19 1628 Date of Service: 05/26/191610 Status: Signed Splicing Supervisor: Qasim Ryan MD (Physician) [facility] Service: Vascular Surgery Procedure Note NAME: Ramona Oconnor BILLING #: [id number] MR #: [id number] : 1980 DATE OF PROCEDURE: 05/26/2019 SURGEON: Qasim Ryan MD SUPERVISOR [employer]ING [employer]: Man Jeronimo PA-C (ARLYN was required to help with positioning, prepping and d raping, retraction and closure). PREOPERATIVE DIAGNOSIS: 1. Left arm AV graft wound dehiscence POSTOPERATIVE DIAGNOSIS: Same PROCEDURES: 1. Left arm exploration and washout with pulse lavage 2. Left arm wound vac placement (area of wound vac coverage 3cm x 2cm x 1cm) ANESTHESIA: General anesthesia SPECIMEN: None ESTIMATED BLOOD LOSS: Less Than 10 ml (Minimal) BLOOD ADMINISTERED: None COMPLICATIONS: None CONDITION: Stable INDICATIONS: This is a 39 y.o. female patient who recently underwent a left arm AV fistula creation for dialysis access purposes. The patient developed dehiscence of her left axilla i ncision. Due to the underlying AVG, we plan to perform wound exploration with evaluation of the wound, possible washout, debridement and wound vac placement. Risks and benefits of th p rocedure were discussed. The purpose of the procedure is to clean the wound and use the woun d vac to improve wound healing. The risk of the procedure includes bleeding, AVG infection, nerve injury, venous thrombosis, arterial occlusion, pulmonary embolism, arteriovenous graft thrombosis, heart attack, stroke, respiratory failure and . OPERATION: The patient was brought to the operating room and placed on the operating table in the supine position. General anesthesia was given. The patient s left arm was prepped s terilely and draped in the standard fashion. Appropriate time out was performed whereby the patient and site of surgery were identified. A sharp scalpel was used to open the skin incis ion site in the axilla. The incision wound was open and inspected. We identified the AVG in the arm wound. The anastomosis and AVG are intact. There is no gross infection in the wound. The wound edge skin and subcutaneous tissue was sharply excised using skin scalpel and elec trocautery. Hemostasis was achieved using electrocautery. Next pulsed lavage fluid containin g antibiotic solution was used to irrigate the wound. Given the large cavity in her wound, lyudmila ny decided that wound vac would be necessary to close this wound. The wound over the AVG was closed using 3-0 Nylon suture in interrupted vertical mattress fashion. The remaining of the wound with subcutaneous tissue base measured 3cm x 2cm x 1cm. Therefore we placed a wound v ac sponge in the wound following by wound vac tubing placement which was connected to contin ual wound vac drainage. Standard tapes and dressings were applied for wound vac placement. T he area of wound vac coverage is 3cm by 2cm in area and 1cm in depth. The patient tolerated the procedure well without any complication. I was present throughout the entire operation. Qasim Ryan MD documented in this enco unter Plan of [...] this | | PANEL | e | 4:00 PM | | procedure are in the | | | | PDT | | results section. | + +--------+ + + + | , SERUM, | Routin | 05/26/2019 | | Results for this | | QUAL | e | 1:48 PM | | procedure are in the | | | | PDT | | results section. | + +--------+ + + + | BASIC METABOLIC | Routin | 05/26/2019 | | Results for this | | PANEL | e | 1:48 PM | | procedure are in the | | | | PDT | | results section. | + +--------+ + + + documented in this encounter Results Basic Metabolic Panel (05/26/2019 4:00 PM PDT) + + + + + + | Component | Value | Ref Range | Performed | Pathologist | | | | | At | Signature | + + + + + + | Na | 136 | 135 - 145 | EXTERNAL | | | | | mmol/L | LAB | | + + + + + + | K | 5.8 (H) | 3.5 - 4.9 | EXTERNAL | | | | | mmol/L | LAB | | + + + + + + | Cl | 100 | 99 - 109 mmol/L | EXTERNAL | | | | | | LAB | | + + + + + + | CO2 | 26 | 23 - 32 mmol/L | EXTERNAL | | | | | | LAB | | + + + + + + | Anion Gap | 16 | 5 - 20 mmol/L | EXTERNAL | | | | | | LAB | | + + + + + + | Glucose, | 71 | 65 - 99 mg/dL | EXTERNAL | | | Fasting | | | LAB | | + + + + + + | BUN | 33 (H) | 8 - 25 mg/dL | EXTERNAL | | | | | | LAB | | + + + + + + | Creatinine | 9.91 (H) | 0.50 - 1.00 | EXTERNAL [...] + + + + | Estimated | 4 (L)Comment: GFR <60: | mL/min/1.73m2 | EXTERNAL [...] | | | | | performed at [facility] | | | | | | [address];[place], [place] | | | | | | [address] | | | | + + + + + + + + | Specimen | + + | Blood specimen | | (specimen) | + + + +---------+ + + | Performing | Address | City/State/Zipcode | Phone Number | | Organization | | | | + +---------+ + + | EXTERNAL LAB | | | | + +---------+ + + , Serum, Qual (05/26/2019 1:48 PM PDT) + + + + + + | Component | Value | Ref Range | Performed | Pathologist | | | | | At | Signature | + + + + + + | HCG | NEGATIVEComment: Testing | | EXTERNAL | | | QUALITATIVE | performed at [facility] | | LAB | | | | [facility];[place] | | | | | | [address] | | | | + + + [...] + +---------+ + + Basic Metabolic Panel (05/26/2019 1:48 PM PDT) + + + + + [...] 5.5 (H) | 3.5 - 4.9 | EXTERNAL | | | | | mmol/L | LAB | | + + + + + + | Cl | 101 | 99 - 109 mmol/L | EXTERNAL | | | | | | LAB | | + + + + + + | CO2 | 26 | 23 - 32 mmol/L | EXTERNAL | | | | | | LAB | | + + + + + + | Anion Gap | 17 | 5 - 20 mmol/L | EXTERNAL | | | | | | LAB | | + + + + + + | Glucose, | 84 | 65 - 99 mg/dL | EXTERNAL | | | Fasting | | | LAB | | + + + + + + | BUN | 39 (H) | 8 - 25 mg/dL | EXTERNAL | | | | | | LAB | | + + + + + + | Creatinine | 9.88 (H) | 0.50 - 1.00 | EXTERNAL | | | | | mg/dL | LAB | | + + + + + + | BUN/Creatin | 4 | | EXTERNAL | | | ine Ratio | | | LAB | | + + + + + + | Calcium | 8.9 | 8.5 - 10.5 | EXTERNAL | | | | | mg/dL | LAB | | + + + + + + | Estimated | 4 (L)Comment: GFR <60: | mL/min/1.73m2 | EXTERNAL [...] | | | | | performed at [facility];[address] | | | | | | [address];[place], [place] | | | | | | [address] | | | | + + + [...]
--- OUTSIDE RECORDS SUMMARY | ~2020-05-11 | XMS | Encounter Summary ---
Demographics + + + | Address | [address] | | | [place] [address] | + + + | Home Phone | | + + + | Preferred Language | Unknown | + + + | Marital Status | | + + + | Yarsanism Affiliation | Unknown | + + + | Race | Unknown | + + + | Ethnic Group | Unknown | + + + Author + + + | Author | [facility] | | | and [place] | + + + | Organization | [facility] | | | and [place] | + + + | Address | Unknown | + + + | Phone | Unavailable | + + + Support + + + + + | Name | Relationship | Address | Phone | + + + + + | Lyubov Smalls | ECON | [place], [place] | | | | | [address] | | + + + + + | Lydia Palm | ECON | [place], [place] | | | | | [address] | | + + + + + | melinda METZ" | ECON | [place], [place] | | | [place]ba | | [address] | | + + + + + | Jose C Oconnor | ECON | [place] | | | | | [place] | | | | | [address] | | + + + + + Care Team Providers + +------+ + | Care Linux Unix System Administrator Name | Role | Phone | + +------+ + | No, Physician | PCP | Unavailable | + +------+ + Encounter Details +--------+---------+ + + + | Date | Type | Department | Care Team | Description | +--------+---------+ + + + | 09/14/ | Office | [facility] | Man Jeronimo, | Infection of | | 2019 | Visit | VASCULAR SURGERY | [address] | arteriovenous | | | | [address] | [address] DE JESUS, | dialysis fistula, | | | | [address] [place] [address] | [place] [address] | subsequent encounter | | | | [address] | [phone] | (Primary Dx); | | | | [phone] | | Infected prosthetic | | | | | | vascular graft, | | | | | | initial encounter | | | | | | (HCC) | +--------+---------+ + + + Social [...] +---------+ + + | Blood Pressure | 107/75 | 09/14/2019 2:08 PM | | | | | PST | | + +---------+ + + | Pulse | 88 | 09/14/2019 2:08 PM | | | | | PST | | + +---------+ + + | Temperature | - | - | | + +---------+ + + | Respiratory Rate | 16 | 09/14/2019 2:08 PM | | | | | PST | | + +---------+ + + | Oxygen Saturation | 97% | 09/14/2019 2:08 PM | | | | | PST [...] encounter Progress Notes Man Jeronimo PA-C - 09/14/2019 2:00 PM [facility] [address] [place] [address] [place] [address] Office: [phone] DATE OF VISIT: 09/14/2019 PATIENT NAME: Ramona Oconnor : 1980; AGE: 39 y.o.; Sex:F PHONE NUMBER: PHYSICIAN: Man Jeronimo PA-C PRIMARY CARE / REFERRING PHYSICIAN: No ref. provider found / No Physician on file / p REASON FOR EVALUATION / CHIEF COMPLAINT: Vascular Surgery Postoperative Visit HISTORY OF PRESENT ILLNESS: The patient presents today for a Vascular Surgery Postoperative Visit. She is well known to our service. The patient is39 y.o.femalewith significant past medical history of HTN and ESRDwho presented to [facility] with fever and chills with concern for infection of left arm AV graft. She initially had the left arm AV graft created using bovine carotid artery in May 06. The operation was complicated by wound dehiscence and patient taken to the OR on 05/26 for wound washout and vac placement. After few weeks of wound vac, patient was rajeev en back to the OR on 07/08 due to the graft being exposed for another washout and replacement of wound vac. Wound vac was eventually removed. Patient was seen in clinic on 08/24 for another wound check and graft was seen exposed in the wound. Patient was scheduled for an other wound washout, graft removal, and wound vac placement. However, on 08/26 patient was e mergently transferred to [facility] for severe bleeding from left axilla. She was taken to the OR for graft ligation. However, the graft was not removed and wound was closed. She underwe nt removal of graft and wound vac placement x 2 on 09/03/2019. Since her discharge, she was been doing well. She is still on antibiotics and her wounds vacs are holding suction. Dressi ng changes done 3 times per week. She denies any fever, chills, night sweats. Continues to u se her TDC for access. VITAL SIGNS: BP 107/75 | Pulse 88 | Resp 16 | SpO2 97% PHYSICAL EXAM: Vitals:reviewed CONSTITUTIONAL: Conversant, well developed, NAD EYES: Anicteric sclerae, no lid drag, no proptosis RESP: Normal effort, regular, even, unlabored rate CV: No peripheral edema, rate regular SKIN: [place], warm, dry without rash/lesion MS: ROM not limited, no digital cyanosis, normal gait NEURO: Conversant, A&O times 3 PSYCH: appropriate affect, speech and tone, judgement and insight intact Vascular:Wound vacs holding suction in left axilla. Erythema now resolved. Distal pulse s intact. No swelling noted. ASSESSMENT AND PLAN: Infection of previously ligated arteriovenous graft / Sepsis - She is doing well post opera tively. Her wound vac is holding suction. Continue wound vac changes three times per week. S he is following up with wound care clinic for this. Her sutures and nate will remain for another few weeks. Continue antibiotics per ID. Her wound vac will need to stay until her wo und is completely resolved. Follow up in two weeks for wound check. Continue to use TDC for HD access moving forward. We will discuss creation of new AV access on her other arm eventua lly but will wait until she is completely clear of her current situation and infection. Man Jeronimo PA-C Vascular Surgery HINA Brock-C Tdocumented in this encounter Plan of Treatment Not on filedocumented as of this encounter Visit Diagnoses + + | Diagnosis | + + | Infection of arteriovenous dialysis fistula, subsequent encounter - Primary | + + | Infected prosthetic vascular graft, initial encounter (HCC) | + + documented in this encounter
--- OUTSIDE RECORDS SUMMARY | ~2020-05-11 | XMS | Encounter Summary ---
Demographics + + + | Address | [address] | | | [place] [address] | + + + | Home Phone | | + + + | Preferred Language | Unknown | + + + | Marital Status | | + + + | Worship Affiliation | Unknown | + + + | Race | Unknown | + + + | Ethnic Group | Unknown | + + + Author + + + | Author | [facility] | | | and [place] | + + + | Organization | [facility] | | | [facility] [place] | + + + | Address | Unknown | + + + | Phone | Unavailable | + + + Support + + + + + | Name | Relationship | Address | Phone | + + + + + | Lyubov Smalls | ECON | [place], [place] | | | | | [address] | | + + + + + | Lydia Palm | ECON | [place], [place] | | | | | [address] | | + + + + + | melinda METZ" | ECON | [place], [place] | | | [place] | | [address] | | + + + + + | Jose C Oconnor | ECON | [place] | | | | | [place] | | | | | [address] | | + + + + + Care Team Providers + +------+ + | Care Lead Carpenter Name | Role | Phone | + [...] | daily thru | [address] | [place] [address] | | | | | February 23, | [place], [place] | Phone: | | | | | Peritonitis | [address] | [phone] | | | | | Procedures | Phone: | Fax: | | | | | [place] | [phone] | [phone] | | | | | MEROPENEM, | Fax: | | | | | | 100 MG [place] | [phone] | | | | | | IV [...] | +--------+ + + + + | 02/16/ | Hospital | [facility] | Unknown, | Peritonitis | | 2019 | Encounter | [facility] | MD Iris Kinney | associated with | | | | [address] | [phone] | peritoneal dialysis, | | | | [place] | (Fax) | initial encounter | | | | [address] | | (HCC) (Primary Dx) | | | | [phone] | | | +--------+ + + + [...] + + + | Blood Pressure | 132/76 | 02/16/2019 5:49 PM | | | | | PDT | | + + + + + | Pulse | 90 | 02/16/2019 5:49 PM | | | | | PDT | | + + + + + | Temperature | 36.2 C (97.2 F) | 02/16/2019 4:45 PM | | | | | PDT | | + + + + + | Respiratory Rate | 166 | 02/16/2019 5:49 PM | | | | | PDT | | + + + + + | Oxygen Saturation | 98% | 02/16/2019 4:45 PM | | | | | PDT [...] encounter Progress Notes Gifty Diaz RN - 02/16/2019 5:50 PM PDTFormatting of this note might be diffe rent from the original. Vitals: 02/16/19 1645 02/16/19 1749 BP: 119/66 132/76 Pulse: 90 90 Resp: 16 (!) 166 Temp: 36.2 C (97.2 F) TempSrc: Oral SpO2: 98% Administrations This Visit meropenem (MERREM) 500 mg in sodium chloride 0.9% 50 mL IVPB Admin Date 02/16/2019 Action New Bag Dose 500 mg Rate 50 mL/hr Route Intravenous Administered By Gifty Diaz RN Monitored throughout treatment; treatment completed without untoward effects from medicatio n noted. Next visit tomorrow 1730. Verbalizes understanding of plan of care. VS stable. Disc harged ambulatory with family to home in stable condition. Electronically signed by: Gifty Diaz RN 02/16/2019 17:50 ifty Diaz RN - 02/17/20 19 4:46 PM PDT Vitals: 02/16/19 1645 BP: 119/66 Pulse: 90 Resp: 16 Temp: 36.2 C (97.2 F) Ramona Oconnor received into room 442, independent ambulation accompanied by family. State s here for antibiotic infusion. Reports no change in condition, plan of care since last MD ruchi simental. Alert, oriented x 4, cooperative. Electronically signed by: Gifty Diaz RN 02/16/2019 16:46 documented in this encounter Plan of Treatment [...] 500 mg in | New Bag | 02/17/20 | 500 mg | 50 mL/hr | | | sodium chloride 0.9% 50 mL IVPB | | 19 5:08 | | | | | 500 mg, Intravenous, Administer | | PM PDT | | | | | over 60 Minutes, ONCE, 02/16/19 | | | | | | | at 1655, For 1 dose, Visit | | | | | | | dosing schedule: Every 8 hours | | | | | | | Activate system and mix before | | | | | | | use., Indications: Infection | | | | | | + +---------+ +--------+ +------+ +---+---+ | | | +---+---+ documented in this encounter
--- OUTSIDE RECORDS SUMMARY | ~2020-05-11 | XMS | Encounter Summary ---
Demographics + + + | Address | [address] | | | [place] [address] | + + + | Home Phone | | + + + | Preferred Language | Unknown | + + + | Marital Status | | + + + | Anabaptism Affiliation | Unknown | + + + [...] [place], [place] | | | | | [address] | | + + + + + | Lydia Palm | ECON | [place], [place] | | | | | [address] | | + + + + + | melinda METZ" | ECON | [place], [place] | | | reba | | [phone] | | + + + + + | Jose C Oconnor | ECON | [place] | | | | | [place] | | | | | [address] | | + + + + + Care Team Providers + +------+ + | Care Feather Boner Name | Role | Phone | + +------+ + | Juan F Whitley DO | PCP | | + +------+ + Encounter Details +--------+ + + + + | Date | Type | Department | Care Team | Description | +--------+ + + + + | 03/16/ | Hospital | [facility] | Angela Ruiz, | Abdominal pain, | | 2018 - | Encounter | [facility] | [address] | unspecified | | | | CARE FLOOR [address] | [place] [address] | abdominal location; | | 03/19/ | | [address] | [phone] | Hypotension, | | 2018 | | [place], [place] | | unspecified | | | | [address] | | hypotension type; | | | | [phone] | | Chronic kidney | | | | | | disease, unspecified | | | | | | CKD stage; | | | | | | End-stage renal | | | | | | disease on | | | | | | peritoneal dialysis | | | | | | (HCC); Ovarian mass, | | | | | | right | +--------+ + + + + Social [...] + + + | Blood Pressure | 124/72 | 03/19/2018 3:23 PM | | | | | PDT | | + + + + + | Pulse | 72 | 03/19/2018 3:23 PM | | | | | PDT | | + + + + + | Temperature | 36.7 C (98.1 F) | 03/19/2018 3:23 PM | | | | | PDT | | + + + + + | Respiratory Rate | 18 | 03/19/2018 3:23 PM | | | | | PDT | | + + + + + | Oxygen Saturation | - | - | | + + + + + | Inhaled Oxygen | - | - | | | Concentration | | | | + + + + + | Weight | 85.1 kg (187 lb 11.2 | 03/19/2018 3:23 PM | | | | oz) | PDT | | + + + + + | Height | 157.5 cm (5' 2") | 03/19/2018 3:23 PM | | | | | PDT | | + + + + + | Body Mass Index | 34.33 | 03/19/2018 3:23 PM | | | | | PDT | | + + + + + documented in this encounter Discharge Summaries Arias Singh MD - 03/19/2018 3:22 PM PDTFormatting of this note might be different fr om the original. Discharge Summaries by Arias Singh MD at 03/19/18 1522 Author: Arias Singh MD Service: Hospitalist Author Type: Physician Filed: 03/19/18 1800 Date of Service: 03/19/18 1522 Status: Signed Press Pipe Inspector: Arias Singh MD (Physician) Related Notes: Original Note by Arias Singh MD (Physician) filed at 03/19/18 1541 [facility] Service: Hospitalist Discharge Summary Date of Admission: 03/16/2018 Date of Discharge: 03/19/18 Discharge Provider: Arias Singh MD Treatment Team: Consulting Physician: Lois Richmond MD Consulting Physician: Fiona Rutledge MD Consulting Physician: Andres Mejia MD Admitting Provider: Angela Ruiz MD Discharge Diagnoses: Principal Problem: Acute abdominal pain Active Problems: Ovarian mass, right ESRD on peritoneal dialysis Hypokalemia Hypoalbuminemia Right ovarian cyst Leukocytosis Sepsis (HCC) Peritonitis, dialysis-associated (HCC) GERD with esophagitis Resolved Problems: * No resolved hospital problems. * Final Diagnoses: Acute abdominal pain secondary to peritoneal dialysis/peritonitis Procedures: * No surgery found * Significant Diagnostic Studies: Ct Abdomen Pelvis With Contrast Result Date: 03/16/2018 1. 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 Gynecological consultation recommended. Consider further nonemergent imaging with dedicated pelvic MRI without and with contrast. 2. Moderate amount of free fl uid. 3. Colonic diverticulosis without definite evidence of acute diverticulitis. Zeynepi carlton signed by Ray Briseno on 03/16/2018 10:33 PM BRIEF HISTORY OF PRESENTATION: Ramona Oconnor is a 38 y.o. female who HOSPITAL COURSE: Mrs. Oconnor is a 38-year-old female with end-stage renal disease on peritoneal dialysi s for over the last 2 years, had recently been admitted and discharged on March 09, 2018, fo r PD-associated peritonitis and had been treated with vancomycin and Ceptaz up to the day of readmission. She was re-admitted on March 16, 2018, due to worsening abdominal pain. She descr ibed it as generalized cramping requiring use of Percocet. This also was accompanied with na usea and emesis. Initial blood work, no leukocytosis. She was mildly hypertensive. She did h ave a CT abdomen and pelvis which incidentally showed an adnexal mass, possibly concerning f or evolving ovarian neoplasm. Of note, she was noted to have a similar mass on September 07. Also at that time, she had a pelvic ultrasound indicating a complex multi-septal cyst m easuring 3.8 cm. Further workup did include a CA 125 which was normal at 3.8. The patient's presenting abdominal pains did not seem linked to this incidental ovarian mass. She will be referred to outpatient followup with gynecology, Dr. Baron will follow up with the alex ent within the next few days to weeks. Regarding the patient's abdominal pain, there was a concern for recurrence of peritonitis. She did have peritoneal fluid removed, which was evaluated. Cell count was less than 100. Fi nding were reassuring for resolution of peritonitis. She did finish treatment with IV daptom ycin and meropenem, completing a total of 16 days of treatment from her last discharge. At time of discharge, the patient indicated abdominal pain had significantly improved. Stil l some mild residual pain. She was afebrile, tolerating a diet, and ambulating. She did tolerate PD throughout the hospitalization. She will be discharged home. She will be given an additional prescription of 10 tablets of hydrocodone/acetaminophen. 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 She has been notified of referral to gynecology and the findings of the CT regarding her ri ght ovarian mass. DISCHARGE DIAGNOSES 1. Abdominal pain secondary to resolving peritoneal dialysis-associated peritonitis. 2. End-stage renal disease on peritoneal dialysis. 3. Right ovarian mass measuring approximately 3.8 cm. Past Medical History Diagnosis Date Diverticulosis GERD (gastroesophageal reflux disease) Hypercalcemia 09/07/2017 Hyperphosphatemia 10/28/2015 Hypocalcemia 10/28/2015 Itching 10/28/2015 Metabolic acidosis 10/28/2015 Obesity Peritonitis associated with peritoneal dialysis (HCC) 01/24/2017 Uremia 10/28/2015 Past Surgical History Procedure Laterality Date ESOPHAGOGASTRODUODENOSCOPY N/A 09/10/2017 Procedure: ESOPHAGOGASTRODUODENOSCOPY; Surgeon: Beena Peters MD; Location: [facility] [place] [facility]; Service: Gastroenterology; Laterality: N/A; PERITONEAL CATHETER INSERTION N/A 10/28/2015 Procedure: LAPAROSCOPIC - PERITONEAL DIALYSIS CATH INSERTION; Surgeon: Mundo Ramos MD; Lo cation: [facility]; Service: Vascular; Laterality: N/A; No Known Allergies Prescriptions Prior to Admission Medication Sig Dispense Refill Last Dose amLODIPine (NORVASC) 2.5 MG tablet Take 2.5 mg by mouth daily. Taking at Unknown time cefTAZidime (TAZICEF) 1 g injection Inject 1 g into the peritoneum. 03/16/2018 at Unkno wn time HYDROcodone-acetaminophen (NORCO) 5-325 MG per tablet Take 1 tablet by mouth every 6 (s ix) hours as needed. 20 tablet 0 Taking at Unknown time ondansetron (ZOFRAN) 8 MG tablet Take 1 tablet by mouth every 8 (eight) hours as needed for Nausea. 30 tablet 11 Taking at Unknown time potassium chloride SA (K-DUR,KLOR-CON) 20 MEQ tablet Take 1 tablet by mouth daily. 30 t ablet 3 Taking at Unknown time promethazine (PHENERGAN) 25 MG tablet Take 1 tablet by mouth every 6 (six) hours as nee ded for Nausea. 30 tablet 3 Taking at Unknown time zolpidem (AMBIEN) 5 MG tablet Take 1 tablet by mouth nightly as needed for Sleep (march epeat once in 1 hr if initial dose not effective). 10 tablet 0 Taking at Unknown time ALPRAZolam (XANAX) 0.5 MG tablet Take 0.5 mg by mouth nightly as needed for Sleep. No t Taking at Unknown time ergocalciferol (DRISDOL) 66872 UNITS capsule Take 50,000 Units by mouth once a week. Taking at Unknown time gentamicin (GARAMYCIN) 0.1 % ointment Apply topically 3 (three) times daily. 15 g 1 Ta navneet at Unknown time LORazepam (ATIVAN) 1 MG tablet Take 1 mg by mouth every 8 (eight) hours as needed for A nxiety. Not Taking at Unknown time sevelamer (RENVELA) 800 MG tablet Take 2 tablets by mouth 3 (three) times daily with me als. 180 tablet 1 06/01/2017 DISCHARGE EXAM Vital Signs: BP 98/54 (BP Location: Left upper arm) | Pulse 75 | Temp 98.3 F (36.8 C) (Oral) | Re sp 20 | Ht 1.575 m (5' 2") | Wt 85.1 kg (187 lb 11.2 oz) | LMP (LMP Unknown) | SpO2 95% | ? No | BMI 34.33 kg/m Temp: [97.9 F (36.6 C)-99.1 F (37.3 C)] 98.1 F (36.7 C) (03/19 1521) BP: (98-124)/(54-72) 124/72 (03/19 1521) Heart Rate: [67-86] 72 (03/19 1521) Resp: [18-20] 18 (03/19 1521) SpO2: [95 %-100 %] 100 % (03/19 1521) Weight: [84.9 kg (187 lb 2.7 oz)-85.1 kg (187 lb 11.2 oz)] 85.1 kg (187 lb 11.2 oz) (03/186) Physical Exam Constitutional: She is oriented to person, place, and time. She appears well-developed and well-nourished. Awake, alert, looks well, ambulating in room Mother at bedside HENT: Mouth/Throat: No oropharyngeal exudate. Pulmonary/Chest: Effort normal and breath sounds normal. Abdomina/Gl: Soft. Bowel sounds are normal. She exhibits no distension. There is no tendern ess. There is no guarding. PD catheter insertion site no erythema no discharge Abdomen soft, general mild tenderness to deep palpation otherwise benign Musculoskeletal: She exhibits no edema. Neurological: She is alert and oriented to person, place, and time. Skin: Skin is warm. Psychiatric: She has a normal mood and affect. Nursing note and vitals reviewed. DATA CBC: Lab Results Component Value Date WBC 7.63 03/18/2018 RBC 3.51 (L) 03/18/2018 HGB 10.5 (L) 03/18/2018 HCT 31.5 (L) 03/18/2018 MCV 89.9 03/18/2018 MCH 30.1 03/18/2018 MCHC 33.4 03/18/2018 RDW 48.6 03/18/2018 PLT 255 03/18/2018 MPV 8.6 03/18/2018 DIFFTYPE MANUAL 03/17/2018 BMP: Lab Results Component Value Date NA 138 03/18/2018 K 3.7 03/18/2018 CL 101 03/18/2018 CO2 22 (L) 03/18/2018 ANIONGAP 19 03/18/2018 GLUF 81 03/18/2018 BUN 19 03/18/2018 CREATININE 12.6 (H) 03/18/2018 BCR 2 03/18/2018 CA 7.9 (L) 03/18/2018 CA 9.0 09/07/2017 EGFR 4 (L) 03/18/2018 U/A: Lab Results Component Value Date CLARITYU HAZY 01/22/2017 LEUKOCYTESUR SMALL (A) 01/22/2017 NITRITE NEGATIVE 01/22/2017 UROBILINOGEN NORMAL 01/22/2017 UPRO >500 (A) 01/22/2017 PHUR 9.0 (H) 01/22/2017 BLOODU SMALL (A) 01/22/2017 KETONES NEGATIVE 01/22/2017 BILIRUBINUR NEGATIVE 01/22/2017 GLUCOSEU 150 (A) 01/22/2017 EPIS 50-100 01/22/2017 Results Procedure Component Value Units Date/Time FLUID CULT W/GRAM STAIN [[id number]] Collected: 03/17/18919 Specimen: Peritoneal Fluid Updated: 03/19/18 115 Specimen Description PERITONEAL FLUID GRAM STAIN NO CELLS OR ORGANISMS SEEN CULTURE NO GROWTH 2 DAYS Blood Culture Set 2 [[id number]] Collected: 03/16/181925 Specimen: Blood from Blood, peripheral draw Updated: 03/18/18725 Specimen Description BLOOD, PERIPHERAL DRAW SPECIAL REQUESTS LH CULTURE NO GROWTH 2 DAYS Blood Culture Set 1 [[id number]] Collected: 03/16/181914 Specimen: Blood from Blood, peripheral draw Updated: 03/18/18725 Specimen Description BLOOD, PERIPHERAL DRAW SPECIAL REQUESTS RAC CULTURE NO GROWTH 2 DAYS Body Fluid Cell Count [[id number]] Collected: 03/17/18919 Updated: 03/17/181948 FLUID TYPE PERITONEAL FLUID COLOR COLORLESS APPEARANCE CLEAR RBC'S 19 /mm3 TOTAL NUCLEATED CELLS 31 /mm3 NEUTROPHILS 26 % LYMPHOCYTES 30 % MONOCYTES/MACROPHAGES 39 % Mesothelial Cells 1 % OTHER CELLS 3 % CELLS COUNTED 100 Disposition: Home Condition: Stable Code Status: Full Code Discharge Instructions Ambulatory referral to Obstetrics / Gynecology Referral Priority: Routine Referral Type: Consultation Referral Reason: Specialty Services Required Referred to Provider: ROSAMARIA BARON Requested Specialty: Obstetrics and Gynecology Number of Visits Requested: 1 Follow up: [facility] [address] [place] [address] In 1 week Rosamaria Baron MD [address] [facility] [address] [address] Schedule an appointment as soon as possible for a visit Follow-up for ovarian mass Medication List CHANGE how you take these medications * HYDROcodone-acetaminophen 5-325 MG per tablet QTY: 20 tablet Refills: 0 Commonly known as: NORCO Take 1 tablet by mouth every 6 (six) hours as needed. What changed: Another medication with the same name was added. Make sure you understand ho w and when to take each. * HYDROcodone-acetaminophen 5-325 MG per tablet QTY: 10 tablet Refills: 0 Commonly known as: NORCO Take 1 tablet by mouth every 4 (four) hours as needed. What changed: You were already taking a medication with the same name, and this prescripti on was added. Make sure you understand how and when to take each. * This list has 2 medication(s) that are the same as other medications prescribed for you. Read the directions carefully, and ask your doctor or other care provider to review them wit h you. CONTINUE taking these medications ALPRAZolam 0.5 MG tablet Refills: 0 Commonly known as: XANAX amLODIPine 2.5 MG tablet Refills: 0 Commonly known as: NORVASC ergocalciferol 83418 units capsule Refills: 0 Commonly known as: [...] mouth 3 (three) times daily with meals. TAZICEF 1 g injection Refills: 0 Generic drug: cefTAZidime zolpidem 5 MG tablet QTY: 10 tablet [...] these medications HYDROcodone-acetaminophen 5-325 MG per tablet Discharge took 35 minutes, to include final examination, discussion of admission, and pre paration of prescriptions, instructions for on-going care, follow-up and documentation of di alen summary. Arias Singh MD 03/19/2018 documented in this encounter Medications at Time [...] tablet by | | 0 | | 08/29/201 | | HYDROcodone-acetamin | mouth every 6 [...] Progress Notes Conversion Transaction, Provider Unknown - 03/19/2018 3:51 PM PDTFormatting of this note m ight be different from the original. Progress Notes by Vandana Kemp RN at 03/19/18 1551 Author: Vandana Kemp RN Service: Nephrology Author Type: Registered Nurse Filed: 03/19/18 1552 Date of Service: 03/19/18 1551 Status: Signed Press Pipe Inspector: Vandana Kemp RN (Registered Nurse) Pt is going to be d/c. Pt needs to disconect stay safe and conect new cap, done without com plications by Fátima MARTINEZ per protocol. onver patric Transaction, Provider Unknown - 03/19/2018 3:29 PM PDT Case Management by Saeid Mack RN at 03/19/18 1529 Author: Saeid Mack RN Service: (none) Author Type: Registered Nurse Filed: 03/19/18 1530 Date of Service: 03/19/18 1529 Status: Signed Press Pipe Inspector: Saeid Mack RN (Registered Nurse) 03/19/18 1500 Anticipated Disposition Facility Type Home Medicare Important Message (BLANCA) Given Disposition: home Transportation:spouse All DC paperwork completed Patient and family in agreement with discharge plan Medicare important message Given Saeid Mack Lois Romo MD - 03/19/2018 11:02 AM PDT Progress Notes by Lois Richmond MD at 03/19/18 1102 Author: Lois Richmond MD Service: Infectious Disease Author Type: Physician Filed: 03/19/18 1146 Date of Service: 03/19/18 1102 Status: Signed Press Pipe Inspector: Lois Richmond MD (Physician) [facility] Service: Infectious Disease Progress Note Hospital Day: LOS: 2 days Post-Op Day: * No surgery found * SUBJECTIVE Patient Summary: Re: Sepsis, undergoing Rx for peritonitis with PD catheter From ID consult note on 03/17: The patient is a 38 y.o. female with significant past medical history of gastroesophageal reflux disease, diverticulosis, known right ovarian mass, end-s tage renal disease on peritoneal dialysis (had been previously seen by Dr. Alonzo and Dr. Makayla ramos for Nephrology). She was seen by Dr. Cleaning in August, when there was concern about p eritonitis associated with the peritoneal dialysis but ultimately, patient's symptoms were a ttributed to gastritis, possible gastroparesis She was admitted to [facility] from 03/04- with presentation of sudden onset of abdominal pain . She was diagnosed to have peritoneal dialysis associated peritonitis. CT of the abdomen an d pelvis done on 03/05 showed right adnexal mass measuring 4.9 x 3.7 cm, trace amount of free fluid, colonic diverticulosis, bilateral renal atrophy. Component Latest Ref Rng & Units 03/05/2018 03/07/2018 1:00 AM 10:55 AM FLUID TYPE PERITONEAL FLUID PERITONEAL FLUID COLOR YELLOW COLORLESS APPEARANCE HAZY CLEAR RBC'S /mm3 <10,000 <10,000 TOTAL NUCLEATED CELLS /mm3 1,685 9 NEUTROPHILS % 56 53 LYMPHOCYTES % 31 10 MONOCYTES/MACROPHAGES % 13 37 Cells Counted 100 100 03/05 peritoneal fluid culture had no growth and Gram stain showed no cells or organisms. 03/07 peritoneal fluid culture had no growth; Gram stain showed WBCs but no organisms 03/05 blood cultures grew coagulase-negative Staphylococcus in one out of 4 bottles only. MR SA nasal PCR was negative. 03/07 blood cultures had no growth Under the direction of Nephrology, the patient was treated with vancomycin and ceftazidime, reportedly given IV while she was in hospital and arrange to be given intraperitoneal as an outpatient for 10 more days after discharge on 03/09. The patient presented to the ER on 03/16. Patient's abdominal pain and nausea reportedly were improving but about 2 days prior to presentation, she had worsening abdominal pain and naus ea with no reported fever, chills, chest pain or respiratory symptoms. Peritoneal dialysate fluid reportedly has been clear. Initial vital signs showed the patient was tachycardic. Dr Iris Mejia, on-call for nephrology had been consulted. ER workup showed WBC of 17,530 with 87 percent neutrophils, normal hemoglobin/hematocrit and platelet count. Lactic acid was 1.3. P otassium 2.9, albumin 2.3 with rest of LFTs within normal limits. Patient was given Zofran a nd hydromorphone. After the hydromorphone IV, the patient became hypotensive. CT of the abdomen and pelvis sh owed right ovarian neoplasm with slight interval increase in size, moderate amount of free f luid, colonic diverticulosis with no other evidence of acute process. Blood cultures had bee n sent. I spoke with Dr. Crum overnight with recommendation to make sure that dialysate fl uid is sent for culture. Given the patient's history of antibiotic treatment, I recommended that the patient be placed on IV meropenem, daptomycin and micafungin. The patient was admit [place] to the hospitalist service. Dr. Rutledge, enamel buffer, was consulted overnight because of the transient hypotension whic h was attributed to the opioid administration. Patient was fluid resuscitated with 1.2 L of IV fluids. She is currently afebrile. Systolic blood pressure has been in the 80s to 90s with no tachy cardia. She states that she feels unwell with 7 out of 10 generalized abdominal pain and so me nausea. She has not vomited. She denies chills and sweats. She continues to feel tired. S he denies having diarrhea, constipation, melena or hematochezia. There has been no vaginal d rainage. She and her spouse report that peritoneal dialysate since hospital discharge has be en clear. She has no upper respiratory symptoms. She denies cough, dyspnea, chest pain, palpitations, joint swelling, diffuse arthralgias or myalgias. She has not noted any new skin rash but st ates that she does have some itching at the site of the tape for the peritoneal dialysis cat heter. Events Overnight: Afebrile. Sleepy. States that abdominal pain is improving, currently 4 out of 10 in severity. Denies nausea a nd vomiting. No diarrhea, constipation. No vaginal drainage. No chills or sweats. Scheduled Medications gentamicin Topical Daily heparin (porcine) 5000 unit/0.5mL 5,000 Units Subcutaneous 3 times per day meropenem 1 g Intravenous Q24H pantoprazole 40 mg Intravenous QAM AC potassium chloride SA 20 mEq Oral Daily sevelamer 1,600 mg Oral TID WC sodium chloride (PF) 10 mL Intravenous Q8H sodium chloride 10 mL Intravenous Q8H Continuous Infusions PRN Medications acetaminophen OR acetaminophen, ALPRAZolam, HYDROcodone-acetaminophen, melatonin, ondan setron OR ondansetron, polyethylene glycol OBJECTIVE Vital Signs: BP 99/64 (BP Location: Left upper arm) | Pulse 74 | Temp 97.9 F (36.6 C) (Axillary) | Resp 20 | Ht 1.575 m (5' 2") | Wt 85.1 kg (187 lb 11.2 oz) | LMP (LMP Unknown) | SpO2 96% | ? No | BMI 34.33 kg/m Temp: [97.9 F (36.6 C)-99.1 F (37.3 C)] 97.9 F (36.6 C) (03/19 735) BP: (99-121)/(57-70) 99/64 (03/19 735) Heart Rate: [67-86] 74 (03/19 735) Resp: [18-20] 20 (03/19 735) SpO2: [95 %-99 %] 96 % (03/19 735) Weight: [84.9 kg (187 lb 2.7 oz)-85.1 kg (187 lb 11.2 oz)] 85.1 kg (187 lb 11.2 oz) (03/18 2336) Physical Exam Vital signs reviewed General: Appears comfortable; sleepy, easily arousable Lungs: No adventitious breath sounds anteriorly CV: RRR Abdomen: PD catheter site benign. No significant abdominal tenderness. No rebound or gua rding. No palpable mass Skin: No rash MS: No inflamed looking joints Neurologic: oriented x 3, no focal weakness DATA CBC: Lab Results Component Value Date WBC 7.63 03/18/2018 RBC 3.51 (L) 03/18/2018 HGB 10.5 (L) 03/18/2018 HCT 31.5 (L) 03/18/2018 MCV 89.9 03/18/2018 MCH 30.1 03/18/2018 MCHC 33.4 03/18/2018 RDW 48.6 03/18/2018 PLT 255 03/18/2018 MPV 8.6 03/18/2018 DIFFTYPE MANUAL 03/17/2018 WBC: Lab Results Component Value Date WBC 7.63 03/18/2018 NEUTABSMAN 10.23 (H) 03/17/2018 NEUTROABS 15.34 (H) 03/16/2018 NEUTROMAN 72 03/17/2018 LYMPHOABS 2.41 03/17/2018 LYMPHOMAN 17 03/17/2018 LYMPHSABS 1.18 03/16/2018 LYMPHOPCT 6.73 03/16/2018 MONOABSMAN 0.99 (H) 03/17/2018 MONOMAN 7 03/17/2018 MONOPCT 5.13 03/16/2018 EOSINOABS 0.28 03/17/2018 EOSINOMAN 2 03/17/2018 EOSABS 0.06 03/16/2018 EOSPCT 0.34 03/16/2018 BASOABSMAN 0.14 (H) 03/17/2018 BASOSABS 0.05 03/16/2018 BASOSMAN 1 03/17/2018 BASOPCT 0.28 03/16/2018 PLTEST ADEQUATE 03/04/2018 BANDSPCT 1 03/17/2018 METAABS 0.24 (H) 09/13/2017 METAPCT 2 09/13/2017 COMDIFF SLIDE SCANNED, AGREES WITH AUTOMATED RESULTS. 03/16/2018 CMP: Lab Results Component Value Date NA 138 03/18/2018 K 3.7 03/18/2018 CL 101 03/18/2018 CO2 22 (L) 03/18/2018 ANIONGAP 19 03/18/2018 GLUF 81 03/18/2018 BUN 19 03/18/2018 CREATININE 12.6 (H) 03/18/2018 BCR 2 03/18/2018 CA 7.9 (L) 03/18/2018 CA 9.0 09/07/2017 PROT 5.6 (L) 03/18/2018 ALB 2.1 (L) 03/18/2018 GLOB 3.5 03/18/2018 BILITOT 0.4 03/18/2018 ALP 56 03/18/2018 AST 46 (H) 03/18/2018 ALT 23 03/18/2018 EGFR 4 (L) 03/18/2018 CPK: Lab Results Component Value Date CKTOTAL 53 03/17/2018 Microbiology data: 03/16 blood cultures with no growth to date 03/17 peritoneal fluid clear, colorless, 31 WBCs, 26 percent neutrophils, 30 percent lymphocy acacia, 39 percent monocytes; 19 RBCs. Gram stain showed no cells or organisms with culture herber wing no growth Radiology data: CT of abdomen/pelvis with contrast Impression 1. 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 Gynecological consultation recommended. Consider further nonemergen t imaging with dedicated pelvic MRI without and with contrast. 2. Moderate amount of free fluid. 3. Colonic diverticulosis without definite evidence of acute diverticulitis. LEM LIST Principal Problem: Sepsis (HCC) Active Problems: Ovarian mass, right ESRD on peritoneal dialysis Hypokalemia Hypoalbuminemia Right ovarian cyst Leukocytosis Peritonitis, dialysis-associated (HCC) Acute abdominal pain GERD with esophagitis ASSESSMENT & PLAN ?Sepsis on admission -now afebrile with normal WBC. SBP in the 90s but not tachycardic or dizzy -Patient is undergoing therapy for peritonitis in the setting of end-stage renal disease o n peritoneal dialysis. Peritoneal dialysate cell count on the prior admission fit criteria f or peritonitis but there had been no isolated bacteria -Blood cultures with no growth to date -abdominal pain is improving/better controlled -Peritoneal fluid analysis on 03/17 is reassuring in terms of infection. -Complete peritonitis Rx today with IV daptomycin, meropenem; patient had received total o f 16 days of antibiotic Rx Right ovarian mass since at least August, - suggest gynecology follow-up on this (?ou tpatient) History of gastroesophageal reflux disease Case discussed with Dr. Singh Code Status: Full Code LOIS RICHMOND MD 03/19/2018 onversion [place] saction, Provider Unknown - 03/19/2018 6:29 AM PDTFormatting of this note might be differen t from the original. Nurse Progress Note by Salome Garcia RN at 03/19/18628 Author: Salome Garcia RN Service: (none) Author Type: Registered Nurse Filed: 03/19/1831 Date of Service: 03/19/18628 Status: Signed Press Pipe Inspector: Salome Garcia RN (Registered Nurse) No acute changes. Underwent peritoneal dialysis overnight. VSS; required only one dose of PRN [place] for pain. No episodes of nausea or emesis. No further concerns identified. Alexis l continue to monitor. 03/19/18 6:31 AM Salome Garcia RN Arias Arguelles MD - 03/18/2018 4:37 PM PDT Progress Notes by Arias Singh MD at 03/18/18 9797 Author: Arias Singh MD Service: Hospitalist Author Type: Physician Filed: 03/18/18 2434 Date of Service: 03/18/181636 Status: Signed Press Pipe Inspector: Arias Singh MD (Physician) [facility] Service: Hospitalist Progress Note Hospital Day: LOS: 1 day Post-Op Day: * No surgery found * SUBJECTIVE Patient Summary: 38-year-old female history of gastroesophageal reflux disease, righ t ovarian mass initially noted from CT( 09/06/18) , end-stage renal disease on peritoneal di alysis for 2 years, recently discharged on 03/09/18 for PD associated peritonitis treated wit h vancomycin and Ceptaz a day. At that time she had presented with abdominal pain nausea and emesis which had resolved at time of discharge, she had a continued PD, then approximately 2 days ago began again developing global abdominal discomfort, accompanied with nausea and e mesis. She presented to the emergency afebrile no leukocytosis, she was noted to be hypotens elizabeth requiring 500 cc crystalloid, CT scan showed right adnexal mass slightly increased and s ize 3.8 cm. Peritoneal fluid removed prior to PD, cell count 100, Gram stain negative. ID consultation obtained, empirically started on daptomycin and meropenem. Since admission abdominal pain has improved, of note she has been sleeping/resting more, on awakening she looks comfortable, though continues to indicate having abdominal pain. On que stioning she does indicate abdominal pain has improved since admission, by about 50 percent. No nausea no emesis tolerating diet, ambulating in hallway. Tolerating PD Case discuss with ID and nephrology today. Last bowel movement yesterday Events Overnight: Scheduled Medications DAPTOmycin (CUBICIN) IV 4 mg/kg Intravenous Q48H gentamicin Topical Daily heparin (porcine) 5000 unit/0.5mL 5,000 Units Subcutaneous 3 times per day meropenem 1 g Intravenous Q24H pantoprazole 40 mg Intravenous QAM AC potassium chloride SA 20 mEq Oral Daily sevelamer 1,600 mg Oral TID WC sodium chloride (PF) 10 mL Intravenous Q8H sodium chloride 10 mL Intravenous Q8H Continuous Infusions PRN Medications acetaminophen OR acetaminophen, ALPRAZolam, HYDROcodone-acetaminophen, melatonin, ondan setron OR ondansetron, polyethylene glycol OBJECTIVE Vital Signs: BP 103/57 (BP Location: Left upper arm) | Pulse 70 | Temp 99.1 F (37.3 C) (Oral) | R enmanuel 18 | Ht 1.575 m (5' 2") | Wt 84.3 kg (185 lb 13.6 oz) | LMP (LMP Unknown) | SpO2 97 % | ? No | BMI 33.99 kg/m Temp: [98.1 F (36.7 C)-99.1 F (37.3 C)] 99.1 F (37.3 C) (03/18 1541) BP: (93-127)/(55-68) 103/57 (03/18 1541) Heart Rate: [60-85] 70 (03/18 1541) Resp: [16-18] 18 (03/18 1541) SpO2: [96 %-100 %] 97 % (03/18 1541) Weight: [82.1 kg (181 lb)-84.3 kg (185 lb 13.6 oz)] 84.3 kg (185 lb 13.6 oz) (03/18 0700) Physical Exam Constitutional: She appears well-developed and well-nourished. Sleeping, arousable, no acute distress, calm cooperative Cardiovascular: Normal rate. Pulmonary/Chest: Effort normal. Abdomina/Gl: Soft. Bowel sounds are normal. She exhibits no distension. PD cath Obese, abdomen seems soft, no apparent guarding or tenderness noted Skin: Skin is warm. Psychiatric: She has a normal mood and affect. Her behavior is normal. Nursing note and vitals reviewed. DATA CBC: Lab Results Component Value Date WBC 7.63 03/18/2018 RBC 3.51 (L) 03/18/2018 HGB 10.5 (L) 03/18/2018 HCT 31.5 (L) 03/18/2018 MCV 89.9 03/18/2018 MCH 30.1 03/18/2018 MCHC 33.4 03/18/2018 RDW 48.6 03/18/2018 PLT 255 03/18/2018 MPV 8.6 03/18/2018 DIFFTYPE MANUAL 03/17/2018 CMP: Lab Results Component Value Date NA 138 03/18/2018 K 3.7 03/18/2018 CL 101 03/18/2018 CO2 22 (L) 03/18/2018 ANIONGAP 19 03/18/2018 GLUF 81 03/18/2018 BUN 19 03/18/2018 CREATININE 12.6 (H) 03/18/2018 BCR 2 03/18/2018 CA 7.9 (L) 03/18/2018 CA 9.0 09/07/2017 PROT 5.6 (L) 03/18/2018 ALB 2.1 (L) 03/18/2018 GLOB 3.5 03/18/2018 BILITOT 0.4 03/18/2018 ALP 56 03/18/2018 AST 46 (H) 03/18/2018 ALT 23 03/18/2018 EGFR 4 (L) 03/18/2018 BMP: Lab Results Component Value Date NA 138 03/18/2018 K 3.7 03/18/2018 CL 101 03/18/2018 CO2 22 (L) 03/18/2018 ANIONGAP 19 03/18/2018 GLUF 81 03/18/2018 BUN 19 03/18/2018 CREATININE 12.6 (H) 03/18/2018 BCR 2 03/18/2018 CA 7.9 (L) 03/18/2018 CA 9.0 09/07/2017 EGFR 4 (L) 03/18/2018 Ct Abdomen Pelvis With Contrast Result Date: 03/16/2018 1. 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 Gynecological consultation recommended. Consider further nonemergent imaging with dedicated pelvic MRI without and with contrast. 2. Moderate amount of free fl uid. 3. Colonic diverticulosis without definite evidence of acute diverticulitis. Zeynepi carlton signed by Ray Briseno on 03/16/2018 10:33 PM PROBLEM LIST Principal Problem: Sepsis (HCC) Active Problems: Adrenal mass (HCC) ESRD on peritoneal dialysis Hypokalemia Hypoalbuminemia Right ovarian cyst Leukocytosis Peritonitis, dialysis-associated (HCC) Acute abdominal pain GERD with esophagitis ASSESSMENT & PLAN 1. Abdominal pain - Concerning for PD associated peritonitis/sepsis - Recently treated, presents with worsening abdominal discomfort, - Blood cultures drawn; no growth, pro- calcitonin 0.87 - PD fluid 03/02 no growth - PD fluid 03/17 cell count 100, no active signs of infection - Afebrile, resolved leukocytosis, abdominal discomfort seems to be improving - Pain control; avoid IV opioids if possible, low BP #2. Ovarian mass - CT scan incidentally showing 3.8 cm right ovarian mass worrisome for ovarian neoplasm, al so noted on a prior imaging 03/05/18, and 09/07/17 (pelvis ultrasound indicated complex multi septated cyst 3.8 cm) - Do not suspect cause of pain, CA-125; 3.8 (NL) - will attempt to discuss with gynecology 3. End-stage renal disease - Nephrology consult - Resumed PD - Seems to be tolerating well Disposition: Code Status: Full Code Arias Singh MD 03/18/2018 aranada, Lois Rosales MD - 03/18/2018 8:56 AM PDT Progress Notes by Lois Richmond MD at 03/18/18 0856 Author: Lois Richmond MD Service: Infectious Disease Author Type: Physician Filed: 03/18/18 1007 Date of Service: 03/18/18 0856 Status: Signed Press Pipe Inspector: Lois Richmond MD (Physician) [facility] Service: Infectious Disease Progress Note Hospital Day: LOS: 1 day Post-Op Day: * No surgery found * SUBJECTIVE Patient Summary: Re: Sepsis, undergoing Rx for peritonitis with PD catheter From ID consult note on 03/17: The patient is a 38 y.o. female with significant past medical history of gastroesophageal reflux disease, diverticulosis, known right ovarian mass, end-s tage renal disease on peritoneal dialysis (had been previously seen by Dr. Alonzo and Dr. Makayla ramos for Nephrology). She was seen by Dr. Cleaning in August, when there was concern about p eritonitis associated with the peritoneal dialysis but ultimately, patient's symptoms were a ttributed to gastritis, possible gastroparesis She was admitted to [facility] from 03/04- with presentation of sudden onset of abdominal pain . She was diagnosed to have peritoneal dialysis associated peritonitis. CT of the abdomen an d pelvis done on 03/05 showed right adnexal mass measuring 4.9 x 3.7 cm, trace amount of free fluid, colonic diverticulosis, bilateral renal atrophy. Component Latest Ref Rng & Units 03/05/2018 03/07/2018 1:00 AM 10:55 AM FLUID TYPE PERITONEAL FLUID PERITONEAL FLUID COLOR YELLOW COLORLESS APPEARANCE HAZY CLEAR RBC'S /mm3 <10,000 <10,000 TOTAL NUCLEATED CELLS /mm3 1,685 9 NEUTROPHILS % 56 53 LYMPHOCYTES % 31 10 MONOCYTES/MACROPHAGES % 13 37 Cells Counted 100 100 03/05 peritoneal fluid culture had no growth and Gram stain showed no cells or organisms. 03/07 peritoneal fluid culture had no growth; Gram stain showed WBCs but no organisms 03/05 blood cultures grew coagulase-negative Staphylococcus in one out of 4 bottles only. MR SA nasal PCR was negative. 03/07 blood cultures had no growth Under the direction of Nephrology, the patient was treated with vancomycin and ceftazidime, reportedly given IV while she was in hospital and arrange to be given intraperitoneal as an outpatient for 10 more days after discharge on 03/09. The patient presented to the ER on 03/16. Patient's abdominal pain and nausea reportedly were improving but about 2 days prior to presentation, she had worsening abdominal pain and naus ea with no reported fever, chills, chest pain or respiratory symptoms. Peritoneal dialysate fluid reportedly has been clear. Initial vital signs showed the patient was tachycardic. Dr Iris Mejia, on-call for nephrology had been consulted. ER workup showed WBC of 17,530 with 87 percent neutrophils, normal hemoglobin/hematocrit and platelet count. Lactic acid was 1.3. P otassium 2.9, albumin 2.3 with rest of LFTs within normal limits. Patient was given Zofran a nd hydromorphone. After the hydromorphone IV, the patient became hypotensive. CT of the abdomen and pelvis sh owed right ovarian neoplasm with slight interval increase in size, moderate amount of free f luid, colonic diverticulosis with no other evidence of acute process. Blood cultures had bee n sent. I spoke with Dr. Crum overnight with recommendation to make sure that dialysate fl uid is sent for culture. Given the patient's history of antibiotic treatment, I recommended that the patient be placed on IV meropenem, daptomycin and micafungin. The patient was admit [place] to the hospitalist service. Dr. Rutledge, enamel buffer, was consulted overnight because of the transient hypotension whic h was attributed to the opioid administration. Patient was fluid resuscitated with 1.2 L of IV fluids. She is currently afebrile. Systolic blood pressure has been in the 80s to 90s with no tachy cardia. She states that she feels unwell with 7 out of 10 generalized abdominal pain and so me nausea. She has not vomited. She denies chills and sweats. She continues to feel tired. S he denies having diarrhea, constipation, melena or hematochezia. There has been no vaginal d rainage. She and her spouse report that peritoneal dialysate since hospital discharge has be en clear. She has no upper respiratory symptoms. She denies cough, dyspnea, chest pain, palpitations, joint swelling, diffuse arthralgias or myalgias. She has not noted any new skin rash but st ates that she does have some itching at the site of the tape for the peritoneal dialysis cat heter. Events Overnight: No acute issues. Afebrile. SBPs 90s but not tachycardic. Rested most of the night. Less nausea, no further vomiting according to spouse. Scheduled Medications DAPTOmycin (CUBICIN) IV 4 mg/kg Intravenous Q48H gentamicin Topical Daily heparin (porcine) 5000 unit/0.5mL 5,000 Units Subcutaneous 3 times per day meropenem 1 g Intravenous Q24H pantoprazole 40 mg Intravenous QAM AC potassium chloride SA 20 mEq Oral Daily sevelamer 1,600 mg Oral TID WC sodium chloride (PF) 10 mL Intravenous Q8H sodium chloride 10 mL Intravenous Q8H Continuous Infusions PRN Medications acetaminophen OR acetaminophen, ALPRAZolam, HYDROcodone-acetaminophen, melatonin, ondan setron OR ondansetron, polyethylene glycol OBJECTIVE Vital Signs: BP 97/61 (BP Location: Left upper arm) | Pulse 69 | Temp 98.1 F (36.7 C) (Oral) | Re sp 16 | Ht 1.575 m (5' 2") | Wt 84.3 kg (185 lb 13.6 oz) | LMP (LMP Unknown) | SpO2 96% | ? No | BMI 33.99 kg/m Temp: [97.5 F (36.4 C)-98.8 F (37.1 C)] 98.1 F (36.7 C) (03/18 700) BP: (85-127)/(52-68) 97/61 (03/18 700) Heart Rate: [60-85] 69 (03/18 700) Resp: [16-18] 16 (03/18 700) SpO2: [95 %-100 %] 96 % (03/18 700) Weight: [82.1 kg (181 lb)-84.3 kg (185 lb 13.6 oz)] 84.3 kg (185 lb 13.6 oz) (03/18 700) Physical Exam Vital signs reviewed General: Appears comfortable, seen with at bedside Lungs: No adventitious breath sounds anteriorly CV: RRR Abdomen: PD catheter site benign. No significant tenderness Skin: No rash MS: No inflamed looking joints DATA CBC: Lab Results Component Value Date WBC 7.63 03/18/2018 RBC 3.51 (L) 03/18/2018 HGB 10.5 (L) 03/18/2018 HCT 31.5 (L) 03/18/2018 MCV 89.9 03/18/2018 MCH 30.1 03/18/2018 MCHC 33.4 03/18/2018 RDW 48.6 03/18/2018 PLT 255 03/18/2018 MPV 8.6 03/18/2018 DIFFTYPE MANUAL 03/17/2018 WBC: Lab Results Component Value Date WBC 7.63 03/18/2018 NEUTABSMAN 10.23 (H) 03/17/2018 NEUTROABS 15.34 (H) 03/16/2018 NEUTROMAN 72 03/17/2018 LYMPHOABS 2.41 03/17/2018 LYMPHOMAN 17 03/17/2018 LYMPHSABS 1.18 03/16/2018 LYMPHOPCT 6.73 03/16/2018 MONOABSMAN 0.99 (H) 03/17/2018 MONOMAN 7 03/17/2018 MONOPCT 5.13 03/16/2018 EOSINOABS 0.28 03/17/2018 EOSINOMAN 2 03/17/2018 EOSABS 0.06 03/16/2018 EOSPCT 0.34 03/16/2018 BASOABSMAN 0.14 (H) 03/17/2018 BASOSABS 0.05 03/16/2018 BASOSMAN 1 03/17/2018 BASOPCT 0.28 03/16/2018 PLTEST ADEQUATE 03/04/2018 BANDSPCT 1 03/17/2018 METAABS 0.24 (H) 09/13/2017 METAPCT 2 09/13/2017 COMDIFF SLIDE SCANNED, AGREES WITH AUTOMATED RESULTS. 03/16/2018 CMP: Lab Results Component Value Date NA 138 03/18/2018 K 3.7 03/18/2018 CL 101 03/18/2018 CO2 22 (L) 03/18/2018 ANIONGAP 19 03/18/2018 GLUF 81 03/18/2018 BUN 19 03/18/2018 CREATININE 12.6 (H) 03/18/2018 BCR 2 03/18/2018 CA 7.9 (L) 03/18/2018 CA 9.0 09/07/2017 PROT 5.6 (L) 03/18/2018 ALB 2.1 (L) 03/18/2018 GLOB 3.5 03/18/2018 BILITOT 0.4 03/18/2018 ALP 56 03/18/2018 AST 46 (H) 03/18/2018 ALT 23 03/18/2018 EGFR 4 (L) 03/18/2018 Lab Results Component Value Date CKTOTAL 53 03/17/2018 Component Latest Ref Rng & Units 03/17/2018 9:27 AM CA 125 0 - 35 U/mL 3.8 Lab Results Component Value Date ESR 25 (H) 10/26/2015 Lab Results Component Value Date CRP <0.3 03/17/2018 Component Latest Ref Rng & Units 03/17/2018 2:59 AM MARINO, PM 3.0 - 16.0 ug/dL 12.2 Component Latest Ref Rng & Units 03/16/2018 7:15 PM TEST,SERUM NEGATIVE NEGATIVE Component Latest Ref Rng & Units 03/09/2018 4:48 AM VANCOMYCIN,RANDOM ug/mL Microbiology data: 03/16 blood cultures with no growth to date 03/17 peritoneal fluid clear, colorless, 31 WBCs, 26 percent neutrophils, 30 percent lymphocy acacia, 39 percent monocytes; 19 RBCs. Gram stain showed no cells or organisms with culture in process Radiology data: CT of abdomen/pelvis with contrast Impression 1. 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 Gynecological consultation recommended. Consider further nonemergen t imaging with dedicated pelvic MRI without and with contrast. 2. Moderate amount of free fluid. 3. Colonic diverticulosis without definite evidence of acute diverticulitis. LEM LIST Principal Problem: Sepsis (HCC) Active Problems: Adrenal mass (HCC) ESRD on peritoneal dialysis Hypokalemia Hypoalbuminemia Right ovarian cyst Leukocytosis Peritonitis, dialysis-associated (HCC) Acute abdominal pain GERD with esophagitis ASSESSMENT & PLAN ?sepsis on admission -now afebrile with normal WBC. SBP in the 90s but not tachycardic -Patient is undergoing therapy for peritonitis in the setting of end-stage renal disease o n peritoneal dialysis. Peritoneal dialysate cell count on the prior admission fit criteria f or peritonitis but there had been no isolated bacteria -Blood cultures with no growth to date -Peritoneal fluid analysis on 03/17 is reassuring in terms of infection. D/c micafungin -Complete peritonitis Rx on 03/19 with IV daptomycin, meropenem -symptomatic Rx Right ovarian mass since at least August, - suggest gynecology follow-up on this -Patient has history of gastroesophageal reflux disease Case discussed with Dr. Mejia Code Status: Full Code LOIS RICHMOND MD 03/18/2018 onversion [place] saction, Provider Unknown - 03/17/2018 3:05 PM PDTFormatting of this note might be differen t from the original. Case Management by Saeid Mack RN at 03/17/18 5347 Author: Saeid Mack RN Service: (none) Author Type: Registered Nurse Filed: 03/17/18 1500 Date of Service: 03/17/18 1509 Status: Signed Press Pipe Inspector: Saeid Mack RN (Registered Nurse) 03/17/18 8469 Discharge Planning Evaluation Admitting Diagnosis abdominal pain Readmission No Living Arrangements Spouse/significant other Type of Residence Private residence Independent with ADL's Yes Independent with Mobility Yes Mental Status Oriented Anticipated Discharge Plan Post Acute Care Needs None at this time Plan communicated to patient/family Yes Resources Financial concerns No Transportation issues No Patient/Family concerns No Prescription Plan Yes Name of Pharmacy [facility] Previous home health equipment No Vascular access device Yes (PD catheter) Anticipated Disposition Facility Type Home Met with Ramona and discussed discharge planning, Pt is a 38 y.o., female who is independent and lives with her in [place]. She doesn't use DME but does peritoneal dialysis a t home. Patient's PCP is:Aura Saldaña Patient's insurance:[employer]/Medicare Coverage concerns: none Medication coverage/concerns: yes/no Community resources utilized / needed:Does peritoneal dialysis at home and goes to [facility] in [place] for PD support. Assistance in transportation: family Identification of any specific education / training: none Barriers to Discharge / Alternative housing needed: none Anticipated DCP: home Saeid Mack Arias Arguelles MD - 03/17/2018 8:58 AM PDT Progress Notes by Arias Singh MD at 03/17/18857 Author: Arias Singh MD Service: Hospitalist Author Type: Physician Filed: 03/17/18926 Date of Service: 03/17/18857 Status: Signed Press Pipe Inspector: Arias Singh MD (Physician) [facility] Service: Hospitalist Progress Note Hospital Day: LOS: 0 days Post-Op Day: * No surgery found * SUBJECTIVE Patient Summary: 38-year-old female history of gastroesophageal reflux disease, righ t ovarian mass, end-stage renal disease on peritoneal dialysis for 2 years, recently dischar ged on 03/09/18 for PD associated peritonitis treated with vancomycin and Ceptaz a day. At th at time she had presented with abdominal pain nausea and emesis which had resolved at time o f discharge, she had a continued PD, then approximately 2 days ago began again developing gl obal abdominal discomfort, accompanied with nausea and emesis. She presented to the emergenc y afebrile no leukocytosis, she was noted to be hypotensive requiring 500 cc crystalloid, CT scan showed right adnexal mass slightly increased and size 3.8 cm. ID consult, PT fluid removed, started on daptomycin, meropenem, micafungin Currently patient seen at bedside, is was sleeping though arousable on awakening indicatin g 8 out of 10 pain though looks comfortable on exam. Patient to undergo PD Last bowel movement yesterday Events Overnight: Scheduled Medications DAPTOmycin (CUBICIN) IV 4 mg/kg Intravenous Q48H heparin (porcine) 5000 unit/0.5mL 5,000 Units Subcutaneous 3 times per day meropenem 1 g Intravenous Q24H micafungin (MYCAMINE) IVPB 100 mg Intravenous Q24H pantoprazole 40 mg Oral QAM AC pantoprazole 40 mg Oral Daily potassium chloride SA 20 mEq Oral Daily sevelamer 1,600 mg Oral TID WC sodium chloride (PF) 10 mL Intravenous Q8H sodium chloride 10 mL Intravenous Q8H Continuous Infusions PRN Medications acetaminophen OR acetaminophen, ALPRAZolam, HYDROcodone-acetaminophen, melatonin, ondan setron OR ondansetron, polyethylene glycol OBJECTIVE Vital Signs: BP (!) 86/55 | Pulse 76 | Temp 98.3 F (36.8 C) (Oral) | Resp 18 | Ht 1.575 m (5' 2" ) | Wt 79.9 kg (176 lb 3.2 oz) | LMP (LMP Unknown) | SpO2 97% | ? No | BM I 32.23 kg/m Temp: [96.9 F (36.1 C)-98.7 F (37.1 C)] 98.3 F (36.8 C) (03/17 749) BP: (81-127)/(46-74) 86/55 (03/17 813) Heart Rate: [76-120] 76 (03/17 749) Resp: [14-20] 18 (03/17 749) SpO2: [91 %-100 %] 97 % (03/17 749) Height: [157.5 cm (5' 2")] 157.5 cm (5' 2") (03/17 224) Weight: [79.9 kg (176 lb 3.2 oz)-83.9 kg (184 lb 15.5 oz)] 79.9 kg (176 lb 3.2 oz) (03/17 224) BMI (Calculated): [32.3] 32.3 (03/17 224) Physical Exam Constitutional: She appears well-developed and well-nourished. Sleeping, arousable, no acute distress, at bedside. Cardiovascular: Normal rate. Pulmonary/Chest: Effort normal. Abdomina/Gl: Soft. Bowel sounds are normal. She exhibits no distension. PD cath Obese, abdomen seems soft, no apparent guarding or tenderness noted Skin: Skin is warm. Psychiatric: She has a normal mood and affect. Her behavior is normal. Nursing note and vitals reviewed. DATA CBC: Lab Results Component Value Date WBC 14.19 (H) 03/17/2018 RBC 3.34 (L) 03/17/2018 HGB 9.8 (L) 03/17/2018 HCT 29.8 (L) 03/17/2018 MCV 89.2 03/17/2018 MCH 29.3 03/17/2018 MCHC 32.8 03/17/2018 RDW 45.5 03/17/2018 PLT 271 03/17/2018 MPV 9.3 03/17/2018 DIFFTYPE MANUAL 03/17/2018 CMP: Lab Results Component Value Date NA 139 03/17/2018 K 3.5 03/17/2018 CL 101 03/17/2018 CO2 28 03/17/2018 ANIONGAP 14 03/17/2018 GLUF 78 03/17/2018 BUN 20 03/17/2018 CREATININE 12.3 (H) 03/17/2018 BCR 2 03/17/2018 CA 7.8 (L) 03/17/2018 CA 9.0 09/07/2017 PROT 5.8 (L) 03/17/2018 ALB 2.8 (L) 03/17/2018 GLOB 3.0 03/17/2018 BILITOT 0.4 03/17/2018 ALP 48 03/17/2018 AST 15 03/17/2018 ALT 17 03/17/2018 EGFR 4 (L) 03/17/2018 BMP: Lab Results Component Value Date NA 139 03/17/2018 K 3.5 03/17/2018 CL 101 03/17/2018 CO2 28 03/17/2018 ANIONGAP 14 03/17/2018 GLUF 78 03/17/2018 BUN 20 03/17/2018 CREATININE 12.3 (H) 03/17/2018 BCR 2 03/17/2018 CA 7.8 (L) 03/17/2018 CA 9.0 09/07/2017 EGFR 4 (L) 03/17/2018 Ct Abdomen Pelvis With Contrast Result Date: 03/16/2018 1. 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 Gynecological consultation recommended. Consider further nonemergent imaging with dedicated pelvic MRI without and with contrast. 2. Moderate amount of free fl uid. 3. Colonic diverticulosis without definite evidence of acute diverticulitis. Neil vincent signed by Ray Briseno on 03/16/2018 10:33 PM PROBLEM LIST Principal Problem: Sepsis (HCC) Active Problems: Adrenal mass (HCC) ESRD on peritoneal dialysis Hypokalemia Hypoalbuminemia Right ovarian cyst Leukocytosis Peritonitis, dialysis-associated (HCC) Acute abdominal pain GERD with esophagitis ASSESSMENT & PLAN 1. Sepsis - Concerning for PD associated peritonitis - Recently treated, presents with worsening abdominal discomfort, leukocytosis - Blood cultures drawn, pro- calcitonin 0.87 - PD fluid 03/02 no growth, to be redrawn today - BP low normal - Pain control; avoid IV opioids if possible, low BP #2. Adrenal mass - CT scan incidentally showing 3.8 cm right adrenal mass worrisome for ovarian neoplasm, al so noted on a prior imaging 03/05/18, and 08/26 (pelvis ultrasound indicated complex multisep tated cyst 3.8 cm) - Do not suspect cause of pain, we will check CA-125 3. End-stage renal disease - Nephrology consult - Resuming PD Disposition: Code Status: Full Code Arias Singh MD 03/17/2018 onversion Transact ion, Provider Unknown - 03/17/2018 3:48 AM PDTFormatting of this note might be different fr om the original. Progress Notes by Drew Renae RPH at 03/17/18 0348 Author: Drew Renae RPH Service: Pharmacy Author Type: Pharmacist Filed: 03/17/18 034 Date of Service: 03/17/18347 Status: Signed Press Pipe Inspector: Drew Renae RPH (Pharmacist) Notw ccl 6.1ml/min meds reviewed [facility] pharmacy will follow rdc [id number] docume nted in this encounter H&P Notes Angela Ruiz MD - 03/16/2018 11:39 PM PDTFormatting of this note might be different fro m the original. H&P by Angela Ruiz MD at 03/16/18 2900 Author: Angela Ruiz MD Service: Hospitalist Author Type: Physician Filed: 03/24/181919 Date of Service: 03/16/182338 Status: Addendum Press Pipe Inspector: Angela Ruiz MD (Physician) Related Notes: Original Note by Angela Ruiz MD (Physician) filed at 03/17/18 0607 [facility] Service: Hospitalist Admission History & Physical Date of Admission: 03/16/2018 Requesting Physician: , Emergency Department Reason for Admission: Sepsis, PD catheter associated peritonitis. r/o bacteremia History Obtained From: patient, chart review, Quality of history: good CHIEF COMPLAINT: PCP: [facility] Chief Complaint Chief Complaint Patient presents with Abdominal Pain Recently being treated for peritonitis. Pts adds that she had dialysis today. HISTORY OF PRESENT ILLNESS The patient is 38 y.o. female with significant past medical history of End-stage renal dise ase, on peritoneal dialysis, followed by Dr. Chi; gastroesophageal reflux disease; diverti culosis; obesity. The patient was discharged from [facility] on February, after admission for PD catheter-associated peritonitis, treated with IV vancomycin a nd ceftazidime. She was discharged in stable condition with 10 more days of vancomycin and c eftazidime. At the time of discharge, her abdominal pain was tolerable. The patient presented to the ED with worsening central abdominal pain, nausea, vomiting sin ce Friday. Temporarily, she felt better on Friday; but since yesterday, she has had consta nt pain with intermittent worsening, maximum intensity a 10, described as stabbing pain. She had multiple bouts of emesis, at least 5 times yesterday, twice today. She continues to hav e intractable nausea. Denies any abdominal distention, constipation, diarrhea, or GI bleedin g. No report of hematemesis. Peritoneal dialysis fluid is not cloudy. In the past couple of days, her blood pressures at home have been 80s over 60s multiple times. She was symptomatic with lightheadedness while ambulating. No report of syncope. Denies any fever; chills; ches t pain, pleuritic or precordial; arm pain; jaw pain; interscapular pain. She does not make a ny urine. She feels thirsty and mildly dehydrated. No peripheral edema, dyspnea, PND, or ort hopnea. Tonight, she is yet to do her peritoneal dialysis. Workup in the emergency room showed systolic blood pressures in the 80s over 48, tachycardi c at 120, and a T-max of 96.9 degrees Fahrenheit. Laboratory workup showed leukocytosis of 1 7,000, no anemia, neutrophilia of 87%, no bandemia or thrombocytopenia. CMP shows creatinine of 12, hypokalemia of 2.9, no metabolic acidosis, no hyponatremia, and low albumin of 2.3. test is negative. Lactic acid is normal. Procalcitonin ordered and pending. CT sca n of the abdomen: Right adnexal mass concerning for ovarian neoplasm, slight interval increa se compared to January 2017. Gynecological consultation is recommended. Moderate amount of shawn e fluid, colonic diverticulosis, but no acute diverticulitis. The patient was given 500 mL b olus, and with that, blood pressures came up to 90s. Dr. Crum consulted Dr. Richmond, and she recommended meropenem and micafungin and daptomycin, and hospitalist service consulted t o admit. REVIEW OF SYSTEMS Review of Systems CONSTITUTIONAL: Poor appetite for the past 24 hours. She has lost weight in the past week o r so. No fevers or chills. HEENT: Has mild headache. No acute change in vision, vertigo, dysphagia, thrush, aspiration . Neck: No neck pain, neck stiffness. PULMONARY: Has no cough, shortness of breath, pleuritic chest pain, hemoptysis, or wheezing . CARDIOVASCULAR: No prior history of ND, congestive heart failure, irregular heart rhythm, s yncope. No peripheral edema, PND, orthopnea, dyspnea. GASTROINTESTINAL: GERD present, active, taking omeprazole and has central abdominal pain, i ntractable, and nausea, vomiting. No constipation or diarrhea. Peritoneal dialysis fluid is clear. Peritoneal dialysis catheter: No infection. GENITOURINARY: Does not make any urine and is PD dependent. NEUROLOGIC: No history of TIA, strokes, or seizures. No new focal neurological symptoms of motor weakness, tingling, numbness. PSYCHIATRIC: Denies anxiety, depression, panic attacks. DERMATOLOGIC: No rash. Past Medical History Diagnosis Date Diverticulosis GERD (gastroesophageal reflux disease) Hypercalcemia 09/07/2017 Hyperphosphatemia 10/28/2015 Hypocalcemia 10/28/2015 Itching 10/28/2015 Metabolic acidosis 10/28/2015 Obesity Peritonitis associated with peritoneal dialysis (HCC) 01/24/2017 Uremia 10/28/2015 Past Surgical History Procedure Laterality Date ESOPHAGOGASTRODUODENOSCOPY N/A 09/10/2017 Procedure: ESOPHAGOGASTRODUODENOSCOPY; Surgeon: Beena Peters MD; Location: [facility]; Service: Gastroenterology; Laterality: N/A; PERITONEAL CATHETER INSERTION N/A 10/28/2015 Procedure: LAPAROSCOPIC - PERITONEAL DIALYSIS CATH INSERTION; Surgeon: Mundo Ramos MD; Lo cation: [facility]; Service: Vascular; Laterality: N/A; No Known Allergies Prior to Admission medications Medication Sig Start Date End Date Taking? Authorizing Provider amLODIPine (NORVASC) 2.5 MG tablet Take 2.5 mg by mouth daily. Yes Historical Provider cefTAZidime (TAZICEF) 1 g injection Inject 1 g into the peritoneum. 03/10/18 03/19/18 Yes Hist orical Provider HYDROcodone-acetaminophen (NORCO) 5-325 MG per tablet Take 1 tablet by mouth every 6 (six) hours as needed. 03/09/18 Yes Rosamaria ODALIS MckeonR2 ondansetron (ZOFRAN) 8 MG tablet Take 1 tablet by mouth every 8 (eight) hours as needed for Nausea. 01/25/17 Yes Shad Ba MD potassium chloride SA (K-DUR,KLOR-CON) 20 MEQ tablet Take 1 tablet by mouth daily. 03/09/18 03/09/19 Yes Rosamaria ODALIS MckeonR2 promethazine (PHENERGAN) 25 MG tablet Take 1 tablet by mouth every 6 (six) hours as needed for Nausea. 03/09/18 Yes Rosamaria A ODALIS LynnR2 zolpidem (AMBIEN) 5 MG tablet Take 1 tablet by mouth nightly as needed for Sleep (may repea t once in 1 hr if initial dose not effective). 03/09/18 Yes Rosamaria A ODALIS LynnR2 ALPRAZolam (XANAX) 0.5 MG tablet Take 0.5 mg by mouth nightly as needed for Sleep. Histo rical Provider ergocalciferol (DRISDOL) 38701 UNITS capsule Take 50,000 Units by mouth once a week. His torical Provider gentamicin (GARAMYCIN) 0.1 % ointment Apply topically 3 (three) times daily. 01/25/17 Yrn Ba MD LORazepam (ATIVAN) 1 MG tablet Take 1 mg by mouth every 8 (eight) hours as needed for Anxie ty. Historical Provider sevelamer (RENVELA) 800 MG tablet Take 2 tablets by mouth 3 (three) times daily with meals. 01/25/17 01/25/18 Shad Ba MD Family History Problem Relation Age of Onset [...] Comment: oil Sexual activity: Yes Partners: Male Other Topics Concern Not on file Social History Narrative Lives in [facility], [facility], no falls, full code History Smoking Status Former Smoker Packs/day: 0.25 Quit date: 10/10/2015 Smokeless Tobacco Never Used History Alcohol Use No Comment: occ History Drug Use Types: Marijuana Comment: oil PHYSICAL EXAM Vital Signs: BP 108/56 (BP Location: Right upper arm) | Pulse 84 | Temp 97.7 F (36.5 C) (Oral) | Resp 16 | Wt 83.9 kg (184 lb 15.5 oz) | LMP (LMP Unknown) | SpO2 100% | BMI 33.83 kg/m Physical Exam GENERAL: The patient is alert, oriented x4, hypotensive, persistent, and lightheaded when m sameera to sit up and feels warm to touch and accompanied by spouse but does not appear toxic. HEENT: Atraumatic, normocephalic. Pupils equal and reactive to light. Anicteric. Moist oral mucosa. No thrush. NECK: Supple, no JVD or lymphadenopathy. LUNGS: Clear to auscultation bilaterally. No wheeze or rales. Respirations not labored. HEART: Regular rate and rhythm, no murmur, no gallop, no rub. No chest wall tenderness to p alpation. ABDOMEN: Diffusely tender but not distended, soft. Peritoneal dialysis catheter present. Morgan wel sounds are present and normal. No guarding. EXTREMITIES: Bilateral lower extremities show no pitting edema, no signs of DVT or cellulit is. BACK: No vertebral tenderness. No CVA tenderness. NEUROLOGIC: She is grossly nonfocal. PSYCHIATRIC: Normal mood and affect. No acute delirium. DATA Results for orders placed or performed during the hospital encounter of 03/16/18 (from the past 24 hour(s)) CBC with differential Collection Time: 03/16/18 7:15 PM Result Value Ref Range WBC 17.53 (H) 3.80 - 11.00 K/uL RBC 4.51 3.70 - 5.10 M/uL HGB 13.3 11.3 - 15.5 g/dL HCT 39.8 34.0 - 46.0 % MCV 88.3 80.0 - 100.0 fl MCH 29.5 27.0 - 34.0 pg MCHC 33.5 32.0 - 35.5 g/dL RDW SD 45.5 37 - 53 fl PLT 362 150 - 400 K/uL MPV 8.9 fl DIFF TYPE AUTOMATED NEUTROPHILS 87.52 % LYMPHOCYTES 6.73 % MONOCYTES 5.13 % EOSINOPHILS 0.34 % BASOPHILS 0.28 % NEUTROPHILS ABS 15.34 (H) 1.90 - 7.40 K/uL LYMPHOCYTES ABS 1.18 1.00 - 3.90 K/uL MONOCYTES ABS 0.90 (H) 0.00 - 0.80 K/uL EOSINOPHILS ABS 0.06 0.00 - 0.50 K/uL BASOPHILS ABS 0.05 0.00 - 0.10 K/uL MORPHOLOGY RBC AND PLT MORPHOLOGY APPEAR NORMAL Diff Comment SLIDE SCANNED, AGREES WITH AUTOMATED RESULTS. Comprehensive metabolic panel Collection Time: 03/16/18 7:15 PM Result Value Ref Range SODIUM 138 135 - 145 mmol/L POTASSIUM 2.9 (L) 3.5 - 4.9 mmol/L CHLORIDE 98 (L) 99 - 109 mmol/L CO2 29 23 - 32 mmol/L ANION GAP AGAP 14 5 - 20 mmol/L GLUCOSE 90 65 - 99 mg/dL BUN 18 8 - 25 mg/dL CREATININE 12 (H) 0.50 - 1.00 mg/dL BUN/CREAT 2 CALCIUM 9.1 8.5 - 10.5 mg/dL TOTAL PROTEIN 6.8 6.3 - 8.2 g/dL Albumin 2.3 (L) 3.6 - 5.0 g/dL GLOBULIN 4.5 1.3 - 4.9 g/dL A/G 0.5 (L) 1.0 - 2.4 TBIL 0.5 0.1 - 1.5 mg/dL ALK PHOS 75 35 - 115 U/L AST 19 10 - 45 U/L ALT 22 10 - 65 U/L EGFR 4 (L) >60 mL/min/1.73m2 hCG, serum, qualitative Collection Time: 03/16/18 7:15 PM Result Value Ref Range TEST,SERUM NEGATIVE NEGATIVE Lipase Collection Time: 03/16/18 7:15 PM Result Value Ref Range LIPASE 106 73 - 393 U/L Procalcitonin Collection Time: 03/16/18 7:15 PM Result Value Ref Range PROCALCITONIN 0.87 (H) <0.5 ng/mL Magnesium Collection Time: 03/16/18 7:15 PM Result Value Ref Range MAGNESIUM 2.0 1.7 - 2.4 mg/dL Phosphorus Collection Time: 03/16/18 7:15 PM Result Value Ref Range PHOSPHORUS 2.7 2.3 - 4.8 mg/dL Septic Lactic Acid Collection Time: 03/16/18 7:17 PM Result Value Ref Range LACTIC ACID 1.3 0.4 - 2.0 mmol/L EKG Collection Time: 03/17/18 12:21 AM Result Value Ref Range Ventricular Rate 76 BPM Atrial Rate 76 BPM P-R Interval 140 ms QRS Duration 82 ms Q-T Interval 422 ms QTC Calculation (Bezet) 474 ms Calculated P [place] 24 degrees Calculated R [place] -46 degrees Calculated T [place] -173 degrees Diagnosis Normal sinus rhythm Left axis deviation ST & T wave abnormality, consider inferior ischemia Prolonged QT Abnormal ECG When compared with ECG of 06-MAR-2018 08:38, QRS axis Shifted left Inverted T waves have replaced nonspecific T wave abnormality in Inferior leads This ECG contains Unconfirmed Interpretation Statements. See ED Record for Physician Inter pretation. Confirmed by MUSE READ ONLY, -COMPUTER ([id number]), editor continuity and script Rashel Polanco ([id number]) on 03/17/2018 1:17:24 AM Septic Lactic Acid Collection Time: 03/17/18 3:10 AM Result Value Ref Range LACTIC ACID 1.1 0.4 - 2.0 mmol/L CBC W/Auto Diff (Reflex to Manual) Collection Time: 03/17/18 3:11 AM Result Value Ref Range WBC 14.19 (H) 3.80 - 11.00 K/uL RBC 3.34 (L) 3.70 - 5.10 M/uL HGB 9.8 (L) 11.3 - 15.5 g/dL HCT 29.8 (L) 34.0 - 46.0 % MCV 89.2 80.0 - 100.0 fl MCH 29.3 27.0 - 34.0 pg MCHC 32.8 32.0 - 35.5 g/dL RDW SD 45.5 37 - 53 fl PLT 271 150 - 400 K/uL MPV 9.3 fl DIFF TYPE MANUAL Neutrophils Manual 72 % Bands 1 % Lymphocytes Manual 17 % Monocytes Manual 7 % Eosinophils Manual 2 % Basophils Manual 1 % Neutrophils Absolute 10.23 (H) 1.90 - 7.40 K/uL Bands Manual 0.14 0.00 - 0.20 K/uL Lymphocytes Absolute 2.41 1.00 - 3.90 K/uL Monocytes Absolute 0.99 (H) 0.00 - 0.80 K/uL Eosinophils Absolute 0.28 0.00 - 0.50 K/uL Basophils Absolute 0.14 (H) 0.00 - 0.10 K/uL MORPHOLOGY RBC AND PLT MORPHOLOGY APPEAR NORMAL Magnesium Collection Time: 03/17/18 3:11 AM Result Value Ref Range MAGNESIUM 1.8 1.7 - 2.4 mg/dL Phosphorus Collection Time: 03/17/18 3:11 AM Result Value Ref Range PHOSPHORUS 3.2 2.3 - 4.8 mg/dL Comprehensive Metabolic Panel Collection Time: 03/17/18 3:11 AM Result Value Ref Range SODIUM 139 135 - 145 mmol/L POTASSIUM 3.5 3.5 - 4.9 mmol/L CHLORIDE 101 99 - 109 mmol/L CO2 28 23 - 32 mmol/L ANION GAP AGAP 14 5 - 20 mmol/L GLUCOSE 78 65 - 99 mg/dL BUN 20 8 - 25 mg/dL CREATININE 12.3 (H) 0.50 - 1.00 mg/dL BUN/CREAT 2 CALCIUM 7.8 (L) 8.5 - 10.5 mg/dL TOTAL PROTEIN 5.8 (L) 6.3 - 8.2 g/dL Albumin 2.8 (L) 3.6 - 5.0 g/dL GLOBULIN 3.0 1.3 - 4.9 g/dL A/G 0.9 (L) 1.0 - 2.4 TBIL 0.4 0.1 - 1.5 mg/dL ALK PHOS 48 35 - 115 U/L AST 15 10 - 45 U/L ALT 17 10 - 65 U/L EGFR 4 (L) >60 mL/min/1.73m2 C-reactive protein Collection Time: 03/17/18 3:11 AM Result Value Ref Range CRP <0.3 <0.5 mg/dL EKG shows normal sinus rhythm, ventricular rate of 76, left axis deviation, and nonspecific ST-T wave abnormality without acute change and mildly prolonged QTC of 474. No acute STEMI. Ct Abdomen Pelvis With Contrast Result Date: 03/16/2018 1. 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 Gynecological consultation recommended. Consider further nonemergent imaging with dedicated pelvic MRI without and with contrast. 2. Moderate amount of free fl uid. 3. Colonic diverticulosis without definite evidence of acute diverticulitis. Electroni carlton signed by Ray Briseno on 03/16/2018 10:33 PM PROBLEM LIST Principal Problem: Sepsis (HCC) Active Problems: Adrenal mass (HCC) ESRD on peritoneal dialysis Hypokalemia Hypoalbuminemia Right ovarian cyst Leukocytosis Peritonitis, dialysis-associated (HCC) Acute abdominal pain GERD with esophagitis ASSESSMENT & PLAN 1. Sepsis. Most likely dialysis catheter-associated peritonitis with intractable abdominal pain, nausea, vomiting, persistent hypotension, leukocytosis. We will admit to acute care. C onsulted Dr. Rutledge, enamel buffer. Ordered albumin [address] Richmond consulted from the ER and will continue daptomycin, micafungin, and meropenem. Rule out bacteremia. For pain co ntrol, we will order hydrocodone. 2. End-stage renal disease, peritoneal dialysis dependent. Dr. Mejia has been notified fro m the emergency department and will need nightly peritoneal dialysis arranged. 3. 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 The patient has been notified of this finding by Dr. Crum. A.M. hospitalist to consult Gynecology. 4. Hypokalemia. Cautiously replaced with 30 mEq of potassium and repeat electrolytes in a.m . 5. Hypoalbuminemia. Dietitian consulted. 6. Gastroesophageal reflux disease with esophagitis. Continue Protonix. 7. Adrenal nodule reported, incidental finding. Ordered a.m. cortisol level. Will need foll ow up with Endocrinology as outpatient. Addendum: 5:49am Consulted : recommend admission to acute care Disposition: Acute care Code Status: Full code. Primary Care Physician: [facility] ANGELA RUIZ MD 03/16/2018 documented in this e ncounter Procedure Notes Andres Mejia MD - 03/18/2018 4:18 PM PDT Procedures by Andres Mejia MD at 03/18/18 1618 Author: Andres Mejia MD Service: Nephrology Author Type: Physician Filed: 03/18/18 1629 Date of Service: 03/18/188 Status: Signed Press Pipe Inspector: Andres Mejia MD (Physician) The patient is seen & examined during dialysis. she says that she feels 'ok' today. she de nies any SOB. The following portions of the patient's history were reviewed and updated as appropriate: l aboratory data, allergies, current medications, and problem list. P.E. BP 103/57 (BP Location: Left upper arm) | Pulse 70 | Temp 99.1 F (37.3 C) (Oral) | R enmanuel 18 | Ht 1.575 m (5' 2") | Wt 84.3 kg (185 lb 13.6 oz) | LMP (LMP Unknown) | SpO2 97 % | ? No | BMI 33.99 kg/m General appearance: Pleasant, not in acute distress. Lungs: Good A/E to auscultation bilaterally. There are no wheezes. Heart: Regular rate and rhythm without any rub, gallop. Abdominal exam: Soft and nontender with normal bowel sounds. Extremities: Warm to touch with no leg edema. There is no cyanosis. Neurological: Awake, alert, and oriented to time, place, and person. Access: PD Cath. Lab Results Component Value Date BUN 19 03/18/2018 CREATININE 12.6 (H) 03/18/2018 EGFR 4 (L) 03/18/2018 NA 138 03/18/2018 K 3.7 03/18/2018 CL 101 03/18/2018 CO2 22 (L) 03/18/2018 CA 7.9 (L) 03/18/2018 PHOS 3.2 03/17/2018 MG 1.8 03/17/2018 ALB 2.1 (L) 03/18/2018 HGB 10.5 (L) 03/18/2018 Assessment: Ms. Oconnor is a 38 y.o. female patient with ESRD on PD. Complications identified during her dialysis treatment: none. Recommendations: UF as tolerated Advise fluid restriction of 1.2L per 24 hrs Prot suppl stressed N Epo with dialysis Next dialysis treatment is this evening. Andres Mejia MD FACP documented in this en counter Consult Notes Lois Richmond MD - 03/17/2018 8:39 AM PDTFormatting of this note might be differen t from the original. Consult* by Lois Richmond MD at 03/17/18 0839 Author: Lois Richmond MD Service: Infectious Disease Author Type: Physician Filed: 03/17/18 1012 Date of Service: 03/17/18 0839 Status: Signed Press Pipe Inspector: Lois Richmond MD (Physician) [facility] Service: Infectious Disease Initial Consult Note Date of Admission: 03/16/2018 Reason for Consultation: Sepsis Requesting Physician: Dr. Bill Ruiz, Hospitalist History Obtained From: patient, spouse CHIEF COMPLAINT: Abdominal pain HISTORY OF PRESENT ILLNESS The patient is a 38 y.o. female with significant past medical history of gastroesophageal r eflux disease, diverticulosis, known right ovarian mass, end-stage renal disease on peritone al dialysis (had been previously seen by Dr. Alonzo and Dr. Chi for Nephrology). She was se en by Dr. Cleaning in August, when there was concern about peritonitis associated with the peritoneal dialysis but ultimately, patient's symptoms were attributed to gastritis, possib le gastroparesis She was admitted to [facility] from 03/04- with presentation of sudden onset of abdominal pain . She was diagnosed to have peritoneal dialysis associated peritonitis. CT of the abdomen an d pelvis done on 03/05 showed right adnexal mass measuring 4.9 x 3.7 cm, trace amount of free fluid, colonic diverticulosis, bilateral renal atrophy. Component Latest Ref Rng & Units 03/05/2018 03/07/2018 1:00 AM 10:55 AM FLUID TYPE PERITONEAL FLUID PERITONEAL FLUID COLOR YELLOW COLORLESS APPEARANCE HAZY CLEAR RBC'S /mm3 <10,000 <10,000 TOTAL NUCLEATED CELLS /mm3 1,685 9 NEUTROPHILS % 56 53 LYMPHOCYTES % 31 10 MONOCYTES/MACROPHAGES % 13 37 Cells Counted 100 100 03/05 peritoneal fluid culture had no growth and Gram stain showed no cells or organisms. 03/07 peritoneal fluid culture had no growth; Gram stain showed WBCs but no organisms 03/05 blood cultures grew coagulase-negative Staphylococcus in one out of 4 bottles only. MR SA nasal PCR was negative. 03/07 blood cultures had no growth Under the direction of Nephrology, the patient was treated with vancomycin and ceftazidime, reportedly given IV while she was in hospital and arrange to be given intraperitoneal as an outpatient for 10 more days after discharge on 03/09. The patient presented to the ER on 03/16. Patient's abdominal pain and nausea reportedly were improving but about 2 days prior to presentation, she had worsening abdominal pain and naus ea with no reported fever, chills, chest pain or respiratory symptoms. Peritoneal dialysate fluid reportedly has been clear. Initial vital signs showed the patient was tachycardic. Dr Iris Mejia, on-call for nephrology had been consulted. ER workup showed WBC of 17,530 with 87 percent neutrophils, normal hemoglobin/hematocrit and platelet count. Lactic acid was 1.3. P otassium 2.9, albumin 2.3 with rest of LFTs within normal limits. Patient was given Zofran a nd hydromorphone. After the hydromorphone IV, the patient became hypotensive. CT of the abdomen and pelvis sh owed right ovarian neoplasm with slight interval increase in size, moderate amount of free f luid, colonic diverticulosis with no other evidence of acute process. Blood cultures had bee n sent. I spoke with Dr. Crum overnight with recommendation to make sure that dialysate fl uid is sent for culture. Given the patient's history of antibiotic treatment, I recommended that the patient be placed on IV meropenem, daptomycin and micafungin. The patient was admit med[place] to the hospitalist service. Dr. Rutledge, enamel buffer, was consulted overnight because of the transient hypotension whic h was attributed to the opioid administration. Patient was fluid resuscitated with 1.2 L of IV fluids. She is currently afebrile. Systolic blood pressure has been in the 80s to 90s with no tachy cardia. She states that she feels unwell with 7 out of 10 generalized abdominal pain and so me nausea. She has not vomited. She denies chills and sweats. She continues to feel tired. S he denies having diarrhea, constipation, melena or hematochezia. There has been no vaginal d rainage. She and her spouse report that peritoneal dialysate since hospital discharge has be en clear. She has no upper respiratory symptoms. She denies cough, dyspnea, chest pain, palpitations, joint swelling, diffuse arthralgias or myalgias. She has not noted any new skin rash but st ates that she does have some itching at the site of the tape for the peritoneal dialysis cat heter. REVIEW OF SYSTEMS Review of Systems 12 point ROS negative unless specified above Past Medical History Diagnosis Date Diverticulosis GERD (gastroesophageal reflux disease) Hypercalcemia 09/07/2017 Hyperphosphatemia 10/28/2015 Hypocalcemia 10/28/2015 Itching 10/28/2015 Metabolic acidosis 10/28/2015 Obesity Peritonitis associated with peritoneal dialysis (HCC) 01/24/2017 Uremia 10/28/2015 Past Surgical History Procedure Laterality Date ESOPHAGOGASTRODUODENOSCOPY N/A 09/10/2017 Procedure: ESOPHAGOGASTRODUODENOSCOPY; Surgeon: Beena Peters MD; Location: [facility]; Service: Gastroenterology; Laterality: N/A; PERITONEAL CATHETER INSERTION N/A 10/28/2015 Procedure: LAPAROSCOPIC - PERITONEAL DIALYSIS CATH INSERTION; Surgeon: Mundo Ramos MD; Lo cation: [facility]; Service: Vascular; Laterality: N/A; No Known Allergies Prescriptions Prior to Admission Medication Sig Dispense Refill Last Dose amLODIPine (NORVASC) 2.5 MG tablet Take 2.5 mg by mouth daily. Taking at Unknown time cefTAZidime (TAZICEF) 1 g injection Inject 1 g into the peritoneum. 03/16/2018 at Unkno wn time HYDROcodone-acetaminophen (NORCO) 5-325 MG per tablet Take 1 tablet by mouth every 6 (s ix) hours as needed. 20 tablet 0 Taking at Unknown time ondansetron (ZOFRAN) 8 MG tablet Take 1 tablet by mouth every 8 (eight) hours as needed for Nausea. 30 tablet 11 Taking at Unknown time potassium chloride SA (K-DUR,KLOR-CON) 20 MEQ tablet Take 1 tablet by mouth daily. 30 t ablet 3 Taking at Unknown time promethazine (PHENERGAN) 25 MG tablet Take 1 tablet by mouth every 6 (six) hours as nee ded for Nausea. 30 tablet 3 Taking at Unknown time zolpidem (AMBIEN) 5 MG tablet Take 1 tablet by mouth nightly as needed for Sleep (march epeat once in 1 hr if initial dose not effective). 10 tablet 0 Taking at Unknown time ALPRAZolam (XANAX) 0.5 MG tablet Take 0.5 mg by mouth nightly as needed for Sleep. No t Taking at Unknown time ergocalciferol (DRISDOL) 23388 UNITS capsule Take 50,000 Units by mouth once a week. Taking at Unknown time gentamicin (GARAMYCIN) 0.1 % ointment Apply topically 3 (three) times daily. 15 g 1 Ta navneet at Unknown time LORazepam (ATIVAN) 1 MG tablet Take 1 mg by mouth every 8 (eight) hours as needed for A nxiety. Not Taking at Unknown time sevelamer (RENVELA) 800 MG tablet Take 2 tablets by mouth 3 (three) times daily with me als. 180 tablet 1 06/01/2017 Scheduled Medications DAPTOmycin (CUBICIN) IV 4 mg/kg Intravenous Q48H heparin (porcine) 5000 unit/0.5mL 5,000 Units Subcutaneous 3 times per day meropenem 1 g Intravenous Q24H micafungin (MYCAMINE) IVPB 100 mg Intravenous Q24H pantoprazole 40 mg Oral QAM AC pantoprazole 40 mg Oral Daily potassium chloride SA 20 mEq Oral Daily sevelamer 1,600 mg Oral TID WC sodium chloride (PF) 10 mL Intravenous Q8H sodium chloride 10 mL Intravenous Q8H Continuous Infusions PRN Medications acetaminophen OR acetaminophen, ALPRAZolam, HYDROcodone-acetaminophen, melatonin, ondan setron OR ondansetron, polyethylene glycol Family History Problem Relation Age of Onset [...] Comment: oil Sexual activity: Yes Partners: Male Other Topics Concern Not on file Social History Narrative Lives in [facility], [place], no falls, full code PHYSICAL EXAM Vital Signs: BP (!) 86/55 | Pulse 76 | Temp 98.3 F (36.8 C) (Oral) | Resp 18 | Ht 1.575 m (5' 2" ) | Wt 79.9 kg (176 lb 3.2 oz) | LMP (LMP Unknown) | SpO2 97% | ? No | BM I 32.23 kg/m Temp: [96.9 F (36.1 C)-98.7 F (37.1 C)] 98.3 F (36.8 C) (03/17 749) BP: (81-127)/(46-74) 86/55 (03/17 813) Heart Rate: [76-120] 76 (03/17 749) Resp: [14-20] 18 (03/17 749) SpO2: [91 %-100 %] 97 % (03/17 749) Height: [157.5 cm (5' 2")] 157.5 cm (5' 2") (03/17 224) Weight: [79.9 kg (176 lb 3.2 oz)-83.9 kg (184 lb 15.5 oz)] 79.9 kg (176 lb 3.2 oz) (03/17 224) BMI (Calculated): [32.3] 32.3 (03/17 224) Physical Exam Vital signs have been reviewed Gen.: Sleepy, not in acute distress. Morbidly obese. Seen with at bedside. HEENT: Normocephalic. Anicteric sclera. Conjunctival pallor noted. No nasal mucosal lesions . No sinus tenderness. No tragal tenderness. No oral thrush or ulcers. Pharyngeal area diffi cult to fully evaluate this time. Supple neck with no cervical lymphadenopathy Lungs: No adventitious breath sounds Cardiovascular: Normal rate. Regular rhythm. No murmur or rubs Abdomen: Peritoneal dialysate catheter exit site with no overt signs of infection. The beba toneal dialysate fluid is light yellow and clear. Positive bowel sounds. Soft. Mild, general ized tenderness to deep palpation. No rebound or guarding. No palpable masses No costovertebral angle tenderness Skin: No rash Musculoskeletal: No inflamed looking joints Neurologic: Oriented 3. No gross/focal deficits Psychiatric: Slightly anxious DATA CBC: Lab Results Component Value Date WBC 14.19 (H) 03/17/2018 RBC 3.34 (L) 03/17/2018 HGB 9.8 (L) 03/17/2018 HCT 29.8 (L) 03/17/2018 MCV 89.2 03/17/2018 MCH 29.3 03/17/2018 MCHC 32.8 03/17/2018 RDW 45.5 03/17/2018 PLT 271 03/17/2018 MPV 9.3 03/17/2018 DIFFTYPE MANUAL 03/17/2018 WBC: Lab Results Component Value Date WBC 14.19 (H) 03/17/2018 NEUTABSMAN 10.23 (H) 03/17/2018 NEUTROABS 15.34 (H) 03/16/2018 NEUTROMAN 72 03/17/2018 LYMPHOABS 2.41 03/17/2018 LYMPHOMAN 17 03/17/2018 LYMPHSABS 1.18 03/16/2018 LYMPHOPCT 6.73 03/16/2018 MONOABSMAN 0.99 (H) 03/17/2018 MONOMAN 7 03/17/2018 MONOPCT 5.13 03/16/2018 EOSINOABS 0.28 03/17/2018 EOSINOMAN 2 03/17/2018 EOSABS 0.06 03/16/2018 EOSPCT 0.34 03/16/2018 BASOABSMAN 0.14 (H) 03/17/2018 BASOSABS 0.05 03/16/2018 BASOSMAN 1 03/17/2018 BASOPCT 0.28 03/16/2018 PLTEST ADEQUATE 03/04/2018 BANDSPCT 1 03/17/2018 METAABS 0.24 (H) 09/13/2017 METAPCT 2 09/13/2017 COMDIFF SLIDE SCANNED, AGREES WITH AUTOMATED RESULTS. 03/16/2018 CMP: Lab Results Component Value Date NA 139 03/17/2018 K 3.5 03/17/2018 CL 101 03/17/2018 CO2 28 03/17/2018 ANIONGAP 14 03/17/2018 GLUF 78 03/17/2018 BUN 20 03/17/2018 CREATININE 12.3 (H) 03/17/2018 BCR 2 03/17/2018 CA 7.8 (L) 03/17/2018 CA 9.0 09/07/2017 PROT 5.8 (L) 03/17/2018 ALB 2.8 (L) 03/17/2018 GLOB 3.0 03/17/2018 BILITOT 0.4 03/17/2018 ALP 48 03/17/2018 AST 15 03/17/2018 ALT 17 03/17/2018 EGFR 4 (L) 03/17/2018 Amylase: No results found for: AMYLASE Lipase: Lab Results Component Value Date LIPASE 106 03/16/2018 Component Latest Ref Rng & Units 03/16/2018 03/17/2018 7:17 PM 3:10 AM Lactate, Marcus 0.4 - 2.0 mmol/L 1.3 1.1 Component Latest Ref Rng & Units 03/17/2018 2:59 AM MARINO, PM 3.0 - 16.0 ug/dL 12.2 Component Latest Ref Rng & Units 03/16/2018 7:15 PM TEST,SERUM NEGATIVE NEGATIVE Component Latest Ref Rng & Units 03/09/2018 4:48 AM VANCOMYCIN,RANDOM ug/mL 23.51 Microbiology data: 03/16 blood cultures - 2 sets - in process Peritoneal fluid Gram stain and culture, cell count have been requested Radiology data: CT of abdomen/pelvis with contrast Impression 1. 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 Gynecological consultation recommended. Consider further nonemergen t imaging with dedicated pelvic MRI without and with contrast. 2. Moderate amount of free fluid. 3. Colonic diverticulosis without definite evidence of acute diverticulitis. LEM LIST Principal Problem: Sepsis (HCC) Active Problems: Adrenal mass (HCC) ESRD on peritoneal dialysis Hypokalemia Hypoalbuminemia Right ovarian cyst Leukocytosis Peritonitis, dialysis-associated (HCC) Acute abdominal pain GERD with esophagitis *Patient does not have adrenal mass but an adnexal mass - see below ASSESSMENT & PLAN Possible sepsis on admission -Patient is undergoing therapy for peritonitis in the setting of end-stage renal disease o n peritoneal dialysis. Peritoneal dialysate cell count on the prior admission fit criteria f or peritonitis but there had been no isolated bacteria -Patient has been afebrile. She had leukocytosis on presentation with WBC of 17,000, trend ing down today to 14,000. She has soft BPs; it is suspected that hypotension may also be fro m narcotic medications area and enamel buffer had been consulted -Blood cultures in process -Peritoneal fluid is being sent this morning; this is after patient's antibiotics had been broadened to daptomycin, meropenem and micafungin. We will narrow down antibiotics based on patient's clinical course and further microbiology data. If peritoneal dialysate is still i ndicative of peritonitis, we will discuss with Nephrology about consideration of peritoneal dialysis catheter removal Continue current antibiotics for now, dose adjusted to patient's GFR. CPK has been request ed -Patient does have known right ovarian mass since at least August, - suggest gynecol ogy follow-up on this -Patient has history of gastroesophageal reflux disease Case had been discussed with Dr. Crum last night and with Dr. Singh this morning Code Status: Full Code Primary Care Physician: [facility] Thank you for allowing me to participate in the care of this patient. LOIS RICHMOND MD 03/17/2018 Nona Gutierrez MD - 03/17/2018 12:56 AM PDTFormatting of this note might be different from the origin al. Consult* by Fiona Rutledge MD at 03/17/1855 Author: Fiona Rutledge MD Service: Boat Carpenter Author Type: Physician Filed: 03/17/18 0125 Date of Service: 03/17/1855 Status: Signed Press Pipe Inspector: Fiona Rutledge MD (Physician) [facility] Service: Boat Carpenter Initial Consult Note Ramona Hutson Elvin 38 y.o. Date of Admission: 03/16/2018 Reason for Consultation: Hypotension, sepsis Requesting Physician: Dr. Ruiz, Hospitalist History Obtained From: patient, spouse, chart review CHIEF COMPLAINT: abdominal pain HISTORY OF PRESENT ILLNESS The patient is a 38 y.o. female with significant past medical history of GERD, known right ovarian masst, and end-stage renal disease on peritoneal dialysis. She was recently admitted for PD associated peritonitis, treated with vancomycin and ceftazidime and discharged on . She again presents with abdominal pain, localized to the epigastric and lower abdomen, 8 ou t of 10 in intensity, associated with nausea. No chest pain, no shortness of breath, no feve rs at home. In the ED, initially normotensive and given hydromorphone 1 mg IV with subsequen t hypotension. Received 500 cc crystalloids, lactate 1.3, CT abdomen showing right adnexal m ass with slight increase in size compared to previous study. ID consulted for PD associated peritonitis and antibiotics broadened to daptomycin, meropenem, added antifungal coverage wi th micafungin. REVIEW OF SYSTEMS Negative except for pertinent items noted in HPI. PAST MEDICAL HISTORY Past Medical History Diagnosis Date Diverticulosis GERD (gastroesophageal reflux disease) Hypercalcemia 09/07/2017 Hyperphosphatemia 10/28/2015 Hypocalcemia 10/28/2015 Itching 10/28/2015 Metabolic acidosis 10/28/2015 Obesity Peritonitis associated with peritoneal dialysis (HCC) 01/24/2017 Uremia 10/28/2015 PAST SURGICAL HISTORY Past Surgical History Procedure Laterality Date ESOPHAGOGASTRODUODENOSCOPY N/A 09/10/2017 Procedure: ESOPHAGOGASTRODUODENOSCOPY; Surgeon: Beena Peters MD; Location: [facility]; Service: Gastroenterology; Laterality: N/A; PERITONEAL CATHETER INSERTION N/A 10/28/2015 Procedure: LAPAROSCOPIC - PERITONEAL DIALYSIS CATH INSERTION; Surgeon: Mundo Ramos MD; Lo cation: [facility]; Service: Vascular; Laterality: N/A; ALLERGIES No Known Allergies MEDICATIONS PRIOR TO ADMISSION (Not in a hospital admission) SCHEDULED MEDICATIONS sodium chloride 10 mL Intravenous Q8H CONTINUOUS INFUSIONS albumin human DAPTOmycin (CUBICIN) IV meropenem Stopped (03/16/18 9627) micafungin (MYCAMINE) IVPB 100 mg (03/17/18 0031) FAMILY HISTORY OF SIGNIFICANCE No family history on file. SOCIAL HISTORY Social History Social History Marital status: Spouse name: N/A Number of children: N/A Years of education: N/A Occupational History Not on file. Social History Main Topics Smoking status: Former Smoker Packs/day: 0.25 Quit date: 10/10/2015 Smokeless tobacco: Never Used Alcohol use No Comment: occ Drug use: Yes Types: Marijuana Comment: oil Sexual activity: Yes Partners: Male Other Topics Concern Not on file Social History Narrative No narrative on file PHYSICAL EXAM VITAL SIGNS Temp: [96.9 F (36.1 C)-98.6 F (37 C)] 97.7 F (36.5 C) Heart Rate: [82-120] 86 Resp: [14-20] 16 BP: (81-127)/(46-74) 97/53 Intake/Output Summary (Last 24 hours) at 03/17/18 0056 Last data filed at 03/16/18 2357 Gross per 24 hour Intake 550 ml Output 0 ml Net 550 ml EXAM GEN: awake, alert, oriented x3, complaining of abdominal pain NEURO: PERRLA, EOMI, no facial asymmetry, moves all extremities well GCS: 15 HEENT: sclerae clear, nonicteric, oral mmm, pink, no exudates NECK: supple, trachea midline CV: RRR, S1/S2, no murmur, rub or gallop, peripheral pulses palpable, cap refill brisk LUNGS: clear b/l, no wheezing, rales or rhonchi, symmetric chest expansion, even/unlabored respirations ABD: soft, nondistended, PD catheter in place, epigastric and lower abdominal tenderness to palpation, no rebound or guarding EXTR: no edema, clubbing or cyanosis SKIN: warm, dry, no rash or mottling; no e/o skin breakdown over the occiput, scapulae, elb ows, sacrum or heels LINES/TUBES: PIV DATA Recent Labs Lab 03/16/18 191 WBC 17.53* RBC 4.51 HGB 13.3 HCT 39.8 MCV 88.3 MCH 29.5 MCHC 33.5 RDW 45.5 PLT 362 MPV 8.9 NEUTROABS 15.34* LYMPHSABS 1.18 MONOSABS 0.90* BASOSABS 0.05 EOSABS 0.06 MORPH RBC AND PLT MORPHOLOGY APPEAR NORMAL Recent Labs Lab 03/16/18 1915 NA 138 K 2.9* CL 98* CO2 29 ANIONGAP 14 GLUF 90 BUN 18 CREATININE 12* BCR 2 CA 9.1 ALB 2.3* GLOB 4.5 AG 0.5* PROT 6.8 BILITOT 0.5 ALT 22 AST 19 EGFR 4* PHOS 2.7 MG 2.0 No results for input(s): INR in the last [address] Abdomen Pelvis With Contrast Result Date: 03/16/2018 1. 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 Gynecological consultation recommended. Consider further nonemergent imaging with dedicated pelvic MRI without and with contrast. 2. Moderate amount of free fl uid. 3. Colonic diverticulosis without definite evidence of acute diverticulitis. Neil vincent signed by Ray Briseno on 03/16/2018 10:33 PM PROBLEM LIST Principal Problem: Sepsis (HCC) Active Problems: Adrenal mass (HCC) Gastroesophageal reflux disease without esophagitis ESRD on peritoneal dialysis Hypokalemia Hypoalbuminemia Right ovarian cyst Leukocytosis Anemia in ESRD (end-stage renal disease) (HCC) Peritonitis, dialysis-associated (HCC) Acute abdominal pain Resolved Problems: * No resolved hospital problems. * ASSESSMENT & PLAN 38/F presenting with abdominal pain, PD associated peritonitis, right adnexal mass Sepsis, PD associated peritonitis - fluid resuscitation, antibiotics per ID, on meropene m, daptomycin, and micafungin. Send blood and peritoneal fluid for culture. Lactate normal, recheck. Transient hypotension likely from opioid administration. Abdominal pain - likely from peritonitis and enlarging right adnexal mass. Will need [facility] consultation for further work up and evaluation. Pain control. Disposition: Stable for admission to acute care. Plan of care discussed with patient and brian arroyo at bedside. Please call for changes in hemodynamics, persistent hypotension despite f luid resuscitation Code Status: Prior Primary Care Physician: [facility] Thank you for this consult. Please call if there are any additional questions. *Please bill 55 minutes of high complexity time spent evaluating the patient, reviewing the data and formulating a plan exclusive of all other procedures. Fiona Rutledge MD 03/17/2018 documented in th is encounter ED Notes Conversion Transaction, Provider Unknown - 03/17/2018 12:41 AM PDTFormatting of this note m ight be different from the original. ED Notes by Mariela Becker RN at 03/17/1840 Author: Mariela Becker RN Service: (none) Author Type: Registered Nurse Filed: 03/17/1858 Date of Service: 03/17/1840 Status: Addendum Press Pipe Inspector: Mariela Becker RN (Registered Nurse) Related Notes: Original Note by Mariela Becker RN (Registered Nurse) filed at 03/17/1857 Boat Carpenter at bedside to assess patient. Pt already received 25 g Albumin. BP currently 97 /53. Per Boat Carpenter Dr. Rutledge's verbal order, patient to receive another 25 G of 5% Album in and then she is cleared to go to the floor. Mariela Becker RN 03/17/1858 onver patric Transaction, Provider Unknown - 03/17/2018 12:30 AM PDT ED Notes by Mariela Becker RN at 03/17/1829 Author: Mariela Becker RN Service: (none) Author Type: Registered Nurse Filed: 03/17/18100 Date of Service: 03/17/1829 Status: Signed Press Pipe Inspector: Mariela Becker RN (Registered Nurse) Assumed care of patient at this time. Report received from MICHELLE Maza. Mariela Becker RN 03/17/18100 onver patric Transaction, Provider Unknown - 03/16/2018 11:57 PM PDT ED Notes by Shaunna Sy RN at 03/16/182356 Author: Shaunna Sy RN Service: (none) Author Type: Registered Nurse Filed: 03/16/182356 Date of Service: 03/16/182356 Status: Signed Press Pipe Inspector: Shaunna Sy RN (Registered Nurse) MD at bedside. Darío. Shaunna Sy RN 03/16/18 0317 Shad Martinez MD - 03/16/2018 11:27 PM PDTFormatting of this note might be different from the o riginal. ED Provider Notes by Shad Crum MD at 03/16/183 Author: Shad Crum MD Service: (none) Author Type: Physician Filed: 03/16/18 5417 Date of Service: 03/16/182326 Status: Signed Press Pipe Inspector: Shad Crum MD (Physician) Supplemental note to a note by Brittany Cameron. I personally saw and evaluated the patient. In summary this is a 38-year-old female with hi story of peritoneal dialysis being treated for spontaneous bacterial peritonitis. She is rec eiving vancomycin and ceftazidime. She has had worsening abdominal pain over the course of t he last 2-3 days. She denies any fevers at home. She has had nausea. The patient was hypotensive initially in the emergency department. The hypotension began af ter a single dose of IV Dilaudid. The patient had a normal lactic acid but leukocytosis was elevated compared to prior labs. CT of her abdomen and pelvis showed a right ovarian neoplasm which had been seen on multipl e prior images. There is no other evidence of acute process. I was concerned that the patient's symptoms were secondary to worsening SBP. I spoke with Jaylon Richmond, infectious disease specialist. She recommends IV meropenem, daptomycin, and Roger afungin. The patient's blood pressures have been stable over the course of the last 2 hours. I spoke with Dr. Ruiz, who does agree to admission. Dr. Bernstein Later was made aware of the patient . Procedures Additional Documentation Procedures Shad Crum MD 03/16/18 0825 Brittany Peralta A RNP - 03/16/2018 6:03 PM PDT ED Provider Notes by BALJIT Reid at 03/16/18 0415 Author: BALJIT Reid Service: Emergency Department Author Type: Nurse Chela tadeo Filed: 03/16/182214 Date of Service: 03/16/18 180 Status: Attested Press Pipe Inspector: BALJIT Reid (Nurse Practitioner) Cosigner: Shad Crum MD at 08/27 Attestation signed by Shad Crum MD at 03/19/18815 I have reviewed the note and supervised the mid-level provider. Procedures [facility] EMERGENCY DEPARTMENT History of Present Illness Patient Identification Ramona Oconnor is a 38 y.o. female. Patient information was obtained from patient. History/Exam limitations: None Patient presented to the Emergency Department by: Car PCP: [facility] Chief Complaint Chief Complaint Patient presents with Abdominal Pain Recently being treated for peritonitis. Pts adds that she had dialysis today. HPI: The patient complains of abdominal pain. Onset of symptoms was today, with a constant cours e since that time. She was discharged from the hospital on Friday after being diagnosed with peritonitis. She has been on antibiotics. Symptoms were improving until today when her pain and nausea became worse again. She gets peritoneal dialysis. She sees Dr. Chi for nephrol ogy. She does not make urine. Denies fever, chest pain, cough and shortness of breath. Care prior to arrival consisted of nothing. Past Medical History Diagnosis Date Diverticulosis GERD (gastroesophageal reflux disease) Hypercalcemia 09/07/2017 Hyperphosphatemia 10/28/2015 Hypocalcemia 10/28/2015 Itching 10/28/2015 Metabolic acidosis 10/28/2015 Obesity Peritonitis associated with peritoneal dialysis (HCC) 01/24/2017 Uremia 10/28/2015 Past Surgical History Procedure Laterality Date ESOPHAGOGASTRODUODENOSCOPY N/A 09/10/2017 Procedure: ESOPHAGOGASTRODUODENOSCOPY; Surgeon: Beena Peters MD; Location: [facility]; Service: Gastroenterology; Laterality: N/A; PERITONEAL CATHETER INSERTION N/A 10/28/2015 Procedure: LAPAROSCOPIC - PERITONEAL DIALYSIS CATH INSERTION; Surgeon: Mundo Ramos MD; Lo cation: [facility]; Service: Vascular; Laterality: N/A; No Known Allergies Social History Social History Marital status: Spouse name: N/A Number of children: N/A Years of education: N/A Occupational History Not on file. Social History Main Topics Smoking status: Former Smoker Packs/day: 0.25 Quit date: 10/10/2015 Smokeless tobacco: Never Used Alcohol use No Comment: occ Drug use: Yes Types: Marijuana Comment: oil Sexual activity: Yes Partners: Male Other Topics Concern Not on file Social History Narrative No narrative on file No family history on file. ROS Review of Systems Patient will not answer questions. Family answers for her. Positive for: abdominal pain, nausea, vomiting Constitutional: Negative for: fatigue, night sweats or weight loss Eyes: Negative for: decreased vision or irritated eyes Nose: Negative for: nosebleed Throat: Negative for: mouth sores Cardiovascular/Respiratory: Negative for: chest pain, shortness of breath, wheezing Gastrointestinal: Negative for: diarrhea, bloody stools Genitourinary: Negative for: dysuria, hematuria Musculoskeletal: Negative for: myalgias Skin: Negative for: laceration or lesion Neuro and psych: Negative for: fainting, head injury, seizure, trouble walking Endocrine/Heme/Lymph: Negative for: swollen lymph nodes, easy bruising Physical Exam BP 127/74 (BP Location: Right upper arm) | Pulse 120 | Temp 96.9 F (36.1 C) | Resp 2 0 | Wt 83.9 kg (184 lb 15.5 oz) | SpO2 99% | BMI 33.83 kg/m Vital signs reviewed, tachycardic, otherwise unremarkable. General: Alert, in distress, appears in pain. Will not answer questions. Family answers fo r her. Eyes: Normal inspection, pupils equal and round, non-icteric ENT: External ears normal Nose normal Neck: Normal inspection Supple No meningismus Cardiovascular: Tachycardic rate, rhythm normal No audible murmur Respiratory: Breath sounds normal bilaterally. No cough during exam. Abdomen: Soft, diffuse abdominal tenderness, non-distended, normal bowel sounds, dialysis catheter to abdomen without erythema No guarding or rebound Skin: Color normal Warm and dry No rash Neuro: No motor deficit No sensory deficit ED Course Medical Decision Making and Emergency Department Course ED Department Course This patient presents with the chief complaint of Abdominal Pain (Recently being treated fo r peritonitis. Pts adds that she had dialysis today.) Records Reviewed Nursing notes Relevant past medical records She is currently being treated with antibiotic infusions [facility]. She is on day 05/19. Peritoneal fluid is clear. DDx includes, but is not limited to peritonitis, pancreatitis, chronic pain vs other. I discussed the differential diagnoses and treatment plan with patient. The patient express es understanding and is agreeable. ED Course as of Mar 16 2214FriMarch 16, [id number] WBC: (!) 17.53 2000 NEUTROPHILS ABS: (!) 15.34 2000 MONOCYTES ABS: (!) 0.90 2000 Lactate, Marcus: 1.3 2001 Patient's blood pressure lowered after Dilaudid. Patient did not have any symptoms wit h the low blood pressure and reported the medication helped her. 2008 CMP reviewed. Hypokalemia 2.0. Creatinine 12, GFR 4. [address] Mejia, telegraphic typewriter installer. She can go to dialysis tomorrow and have the fluid sent for analysis. She does not need to be admitted from a kidney standpoint as it is not likely to be periton itis. I will admit her for pain control and hypotension. 2058 I have ordered an abdominal CT to look for another cause for patient's abdominal pain. 2102 I discussed case with Dr. Crum. CT pending. Her recent blood pressure is 101/69. No treatment at this time. [address] Crum to patient and family. CT report is pending. Patient's BP is n ow 104/65. Patient Vitals for the past 24 hrs: BP Temp Temp src Pulse Resp SpO2 Weight 03/16/182211 104/65 - - 105 - - - 03/16/182209 98/61 - - 105 - - - 03/16/182203 - - - 96 - 95 % - 03/16/182158 98/61 - - 94 - - - 03/16/182141 (!) 87/51 - - 108 - 99 % - 03/16/182126 92/53 - - 106 - 97 % - 03/16/182106 104/71 - - 92 - 97 % - 03/16/182101 101/69 - - 95 16 100 % - 03/16/182039 (!) 89/55 - - 84 14 95 % - 03/16/182036 (!) 81/48 - - 104 - 95 % - 03/16/182021 (!) 89/54 - - 104 - 94 % - 03/16/182001 91/50 - - 103 14 94 % - 03/16/181951 (!) 85/46 - - 104 - 95 % - 03/16/18 1937 95/55 - - 104 - 96 % - 03/16/18 192 92/54 - - 93 14 99 % - 03/16/181915 (!) 84/53 - - 104 14 97 % - 03/16/18 190 (!) 83/54 - - - - 99 % - 03/16/18 190 110/58 - - 98 16 100 % - 03/16/18 1850 (!) 83/53 - - 97 16 100 % - 03/16/18 1820 98/59 98.6 F (37 C) Oral 107 16 100 % - 03/16/18 1629 127/74 96.9 F (36.1 C) - 120 20 99 % 83.9 kg (184 lb 15.5 oz) Medications sodium chloride 0.9 % flush 10 mL (not administered) sodium chloride (bolus) 0.9 % 500 mL (500 mLs Intravenous New Bag 03/16/182213) HYDROmorphone (DILAUDID) injection 1 mg (1 mg Intravenous Given 03/16/181842) ondansetron (ZOFRAN) injection 4 mg (4 mg Intravenous Given 03/16/181842) iopamidol (ISOVUE-300) 61 % injection 100 mL (100 mLs Intravenous Given 03/16/182112) Labs & Radiology Results Laboratory Evaluation Results Procedure Component Value Ref Range Date/Time Lipase [[id number]] Collected: 03/16/181914 Order Status: Completed Specimen: Blood Updated: 03/16/182007 LIPASE 106 73 - 393 U/L Comprehensive metabolic panel [[id number]] (Abnormal) Collected: 03/16/181914 Order Status: Completed Specimen: Blood Updated: 03/16/182007 SODIUM 138 135 - 145 mmol/L POTASSIUM 2.9 (L) 3.5 - 4.9 mmol/L CHLORIDE 98 (L) 99 - 109 mmol/L CO2 29 23 - 32 mmol/L ANION GAP AGAP 14 5 - 20 mmol/L GLUCOSE 90 65 - 99 mg/dL BUN 18 8 - 25 mg/dL CREATININE 12 (H) 0.50 - 1.00 mg/dL BUN/CREAT 2 CALCIUM 9.1 8.5 - 10.5 mg/dL TOTAL PROTEIN 6.8 6.3 - 8.2 g/dL Albumin 2.3 (L) 3.6 - 5.0 g/dL GLOBULIN 4.5 1.3 - 4.9 g/dL A/G 0.5 (L) 1.0 - 2.4 TBIL 0.5 0.1 - 1.5 mg/dL ALK PHOS 75 35 - 115 U/L AST 19 10 - 45 U/L ALT 22 10 - 65 U/L EGFR 4 (L) >60 mL/min/1.73m2 hCG, serum, qualitative [[id number]] Collected: 03/16/181914 Order Status: Completed Specimen: Blood Updated: 03/16/182007 TEST,SERUM NEGATIVE NEGATIVE Septic Lactic Acid [[id number]] Collected: 03/16/181916 Order Status: Completed Updated: 03/16/181957 LACTIC ACID 1.3 0.4 - 2.0 mmol/L CBC with differential [[id number]] (Abnormal) Collected: 03/16/181914 Order Status: Completed Specimen: Blood Updated: 03/16/181947 WBC 17.53 (H) 3.80 - 11.00 K/uL RBC 4.51 3.70 - 5.10 M/uL HGB 13.3 11.3 - 15.5 g/dL HCT 39.8 34.0 - 46.0 % MCV 88.3 80.0 - 100.0 fl MCH 29.5 27.0 - 34.0 pg MCHC 33.5 32.0 - 35.5 g/dL RDW SD 45.5 37 - 53 fl PLT 362 150 - 400 K/uL MPV 8.9 fl DIFF TYPE AUTOMATED NEUTROPHILS 87.52 % LYMPHOCYTES 6.73 % MONOCYTES 5.13 % EOSINOPHILS 0.34 % BASOPHILS 0.28 % NEUTROPHILS ABS 15.34 (H) 1.90 - 7.40 K/uL LYMPHOCYTES ABS 1.18 1.00 - 3.90 K/uL MONOCYTES ABS 0.90 (H) 0.00 - 0.80 K/uL EOSINOPHILS ABS 0.06 0.00 - 0.50 K/uL BASOPHILS ABS 0.05 0.00 - 0.10 K/uL MORPHOLOGY RBC AND PLT MORPHOLOGY APPEAR NORMAL Diff Comment SLIDE SCANNED, AGREES WITH AUTOMATED RESULTS. Blood Culture Set 2 [[id number]] Collected: 03/16/181925 Order Status: Sent Specimen: Blood from Blood Updated: 03/16/181944 Blood Culture Set 1 [[id number]] Collected: 03/16/181914 Order Status: Sent Specimen: Blood from Blood Updated: 03/16/181926 Radiology and EKG Evaluation Imaging Results CT abdomen pelvis with contrast (In process) Diagnosis & Disposition ED Diagnoses Final diagnoses Abdominal pain, unspecified abdominal location Hypotension, unspecified hypotension type Chronic kidney disease, unspecified CKD stage Disposition: 10:14 PM Transition of care to Dr. Crum at this time. An attending physician has been available for consult during this visit. We have discussed all pertinent information. Brittayn Cameron NP 03/16/182214 Shad Crum MD 03/19/1816 onversion Trans action, Provider Unknown - 03/16/2018 5:56 PM PDT ED Notes by Shaunna Sy RN at 03/16/181755 Author: Shaunna Sy RN Service: (none) Author Type: Registered Nurse Filed: 03/16/181756 Date of Service: 03/16/181755 Status: Signed Press Pipe Inspector: Shaunna Sy RN (Registered Nurse) Pt does peritoneal dialysis and has been having worsening abd pain today. Pt is on antibiot ics for peritonitis but her [facility] nurse wanted her to get checked out. Shaunna Sy RN 03/16/181756 docume nted in this encounter Miscellaneous Notes Plan of Care - Conversion Transaction, Provider Unknown - 03/19/2018 12:41 PM PDT Plan of Care by Zabrina Rubio RN at 03/19/18 124 Author: Zabrina Rubio RN Service: (none) Author Type: Registered Nurse Filed: 03/19/18 9652 Date of Service: 03/19/18 124 Status: Signed Press Pipe Inspector: Zabrina Rubio RN (Registered Nurse) Daily care needs are met Progressing Pt is alert and oriented and able to perform adl's independently. Pt has family at bedside. Pt able to express needs she is unable to meet herself. VSS. WCTM lan o f Care - Conversion Transaction, Provider Unknown - 03/19/2018 5:21 AM PDTFormatting of thi s note might be different from the original. Plan of Care by Salome Garcia RN at 03/19/18520 Author: Salome Garcia RN Service: (none) Author Type: Registered Nurse Filed: 03/19/18520 Date of Service: 03/19/18520 Status: Signed Press Pipe Inspector: Salome Garcia RN (Registered Nurse) Problem: Pain Goal: Patient's pain/discomfort is manageable Assess and monitor patient's pain using appropriate pain scale. Collaborate with interdisci plinary team and initiate plan and interventions as ordered. Re-assess patient's pain level approximately 1-2 hours after pain management intervention. Premedicate as needed. Outcome: Progressing Pain assessed throughout shift; addressed accordingly with pain reassessments completed. Problem: Safety Goal: Patient will be injury [...] policy, and non-skid footwear provided. Outcome: Progressing Patient remains free of falls/injury. Problem: Daily Care Goal: Daily care needs are met Assess and monitor ability to perform self care and identify potential discharge needs. Outcome: Progressing Pt independent with ADL's, calls appropriately, as indicated. lan o f Care - Conversion Transaction, Provider Unknown - 03/18/2018 4:48 PM PDTFormatting of thi s note might be different from the original. Plan of Care by Suzy Butt RN at 03/18/18 9308 Author: Suzy J Filomena, RN Service: (none) Author Type: Registered Nurse Filed: 03/18/18 1649 Date of Service: 03/18/18 164 Status: Signed Press Pipe Inspector: Suzy Butt RN (Registered Nurse) Problem: Pain Goal: Patient's pain/discomfort is manageable Assess and monitor patient's pain using appropriate pain scale. Collaborate with interdisci plinary team and initiate plan and interventions as ordered. Re-assess patient's pain level approximately 1-2 hours after pain management intervention. Premedicate as needed. Outcome: Not Progressing Pt reporting 8/10 pain, though walking in halls and appears comfortable. Pain scale paramet ers need reenforcement. lan o f Care - Conversion Transaction, Provider Unknown - 03/17/2018 11:10 PM PDTFormatting of thi s note might be different from the original. Plan of Care by Iker Steen RN at 03/17/18 2310 Author: Iker Steen RN Service: (none) Author Type: Registered Nurse Filed: 03/18/18 0445 Date of Service: 03/17/18 2310 Status: Addendum Press Pipe Inspector: Iker Steen RN (Registered Nurse) Related Notes: Original Note by Iker Steen RN (Registered Nurse) filed at 03/17/18 231 1 Peritoneal dialysis instilling overnight. Continues to reports abdominal pain, prn norco gi marcus x1. SBP 90s-120s this shift. Family and patient anxious for peritoneal fluid culture res ult. Iker Steen RN Problem: Hemodynamic Status Goal: Patient's vitals signs are stable Assess and monitor patient's heart rate, rhythm, respiratory rate, peripheral pulses, capil jen refill, color, body temperature, intake and output, labs and physical activity toleranc e. Observe for signs of chest pain (note location, duration, severity, radiation and assoc iated symptoms such as diaphoresis, nausea, indigestion). Monitor for signs and symptoms of heart failure (eg. shortness of breath, edema of feet/ankles/legs, rapid irregular heart ra te, coughing, wheezing, white/pink blood tinged sputum, sudden weight gain, chest pain). Col laborate with interdisciplinary team and initiate plan and interventions as ordered. Outcome: Progressing SBP 127, prn norco given for abdominal pain. Problem: Risk for Falls Goal: No falls during hospitalization Patient will not fall during hospitalization. Outcome: Progressing Bed alarm on, Jose C and mother Aquiles are at bedside. lan o f Care - Conversion Transaction, Provider Unknown - 03/17/2018 3:02 PM PDTFormatting of teresa s note might be different from the original. Plan of Care by Suzy Butt RN at 03/17/18 1502 Author: Suzy Butt RN Service: (none) Author Type: Registered Nurse Filed: 03/17/18 1503 Date of Service: 03/17/18 150 Status: Signed Press Pipe Inspector: Suzy Butt RN (Registered Nurse) Problem: Pain Goal: Patient's pain/discomfort is manageable Assess and monitor patient's pain using appropriate pain scale. Collaborate with interdisci plinary team and initiate plan and interventions as ordered. Re-assess patient's pain level approximately 1-2 hours after pain management intervention. Premedicate as needed. Outcome: Not Progressing Pt reports pain not at a tolerable level after pain medication was given. lan o f Care - Conversion Transaction, Provider Unknown - 03/17/2018 3:01 AM PDTFormatting of teresa s note might be different from the original. Plan of Care by Iker Steen RN at 03/17/18 0301 Author: Iker Steen RN Service: (none) Author Type: Registered Nurse Filed: 03/17/18 0420 Date of Service: 03/17/18 0301 Status: Addendum Press Pipe Inspector: Iker Steen RN (Registered Nurse) Related Notes: Original Note by Iker Steen RN (Registered Nurse) filed at 03/17/18 030 1 Remains hypotensive with SBP 80s-90s. Complains of abdominal pain, norco given x1. Patient' s and mother at bedside. Iker Steen RN Problem: Fluid and Electrolyte Imbalance Goal: Fluid and electrolyte balance are achieved/maintained Assess and monitor vital signs (orthostatic vitals if applicable), fluid intake and output, urine color, labs, skin turgor, mucous membranes, jugular venous distention, edema, circumf erence of edematous extremities and abdominal girth, respiratory status, and mental status. Monitor for signs and symptoms of hypovolemia (tachycardia, rapid breathing, decreased urin e output, postural hypotension, confusion, syncope). Monitor for signs and symptoms of hype rvolemia (strong rapid pulse, shortness of breath, difficulty breathing lying down, crackles heard in lung corley, edema). Collaborate with interdisciplinary team and initiate plan and interventions as ordered. Outcome: Progressing Patient and family educated on 1.2L fluid restriction. Problem: Pain Goal: Patient's pain/discomfort is manageable Assess and monitor patient's pain using appropriate pain scale. Collaborate with interdisci plinary team and initiate plan and interventions as ordered. Re-assess patient's pain level approximately 1-2 hours after pain management intervention. Premedicate as needed. Outcome: Progressing Patient reports mild abdominal tenderness at this time. Problem: Safety Goal: Patient will be injury [...] policy, and non-skid footwear provided. Outcome: Progressing Bed in low, locked position, call light within reach. docume nted in this encounter Plan of Treatment Not on filedocumented as of this encounter Procedures + +--------+ + + + | Procedure Name | Priori | Date/Time | Associated Diagnosis | Comments | | | ty | | | | + +--------+ + + + | CBC NO DIFFERENTIAL | Routin | 03/18/2018 | | Results for this | | | e | 4:54 AM | | procedure are in the | | | | PDT | | results section. | + +--------+ + + + | COMPREHENSIVE | Routin | 03/18/2018 | | Results for this | | METABOLIC PANEL | e | 4:54 AM | | procedure are in the | | | | PDT | | results section. | + +--------+ + + + | CA 125, QUANT | Routin | 03/17/2018 | | Results for this | | | e | 9:27 AM | | procedure are in the | | | | PDT | | results section. | + +--------+ + + + | CK TOTAL | Routin | 03/17/2018 | | Results for this | | | e | 9:27 AM | | procedure are in the | | | | PDT | | results section. | + +--------+ + + + | PATHOLOGY CONSULT | Routin | 03/17/2018 | | Results for this | | REQUEST | e | 9:20 AM | | procedure are in the | | | | PDT | | results section. | + +--------+ + + + | CELL COUNT, BODY | Routin | 03/17/2018 | | Results for this | | FLUID | e | 9:20 AM | | procedure are in the | | | | PDT | | results section. | + +--------+ + + + | CULTURE, BODY FLUID, | Routin | 03/17/2018 | | Results for this | | STERILE, SMEAR, | e | 9:20 AM | | procedure are in the | | WITH ANAEROBES | | PDT | | results section. | + +--------+ + + + | EXTERNAL LAB: CBC | Routin | 03/17/2018 | | Results for this | | | e | 3:11 AM | | procedure are in the | | | | PDT | | results section. | + +--------+ + + + | C-REACTIVE PROTEIN | Routin | 03/17/2018 | | Results for this | | | e | 3:11 AM | | procedure are in the | | | | PDT | | results section. | + +--------+ + + + | PHOSPHORUS | Routin | 03/17/2018 | | Results for this | | | e | 3:11 AM | | procedure are in the | | | | PDT | | results section. | + +--------+ + + + | MAGNESIUM | Routin | 03/17/2018 | | Results for this | | | e | 3:11 AM | | procedure are in the | | | | PDT | | results section. | + +--------+ + + + | COMPREHENSIVE | Routin | 03/17/2018 | | Results for this | | METABOLIC PANEL | e | 3:11 AM | | procedure are in the | | | | PDT | | results section. | + +--------+ + + + | LACTIC ACID | Routin | 03/17/2018 | | Results for this | | | e | 3:10 AM | | procedure are in the | | | | PDT | | results section. | + +--------+ + + + | CORTISOL, PM | Routin | 03/17/2018 | | Results for this | | | e | 2:59 AM | | procedure are in the | | | | PDT | | results section. | + +--------+ + + + | ECG 12 LEAD | Routin | 03/17/2018 | | Results for this | | | e | 12:21 AM | | procedure are in the | | | | PDT | | results section. | + +--------+ + + + | CT ABDOMEN PELVIS W | Routin | 03/16/2018 | | Results for this | | CONTRAST | e | 9:18 PM | | procedure are in the | | | | PDT | | results section. | + +--------+ + + + | CULTURE, BLOOD, 2ND | STAT | 03/16/2018 | | Results for this | | SPECIMEN (NON-ORD) | | 7:26 PM | | procedure are in the | | | | PDT | | results section. | + +--------+ + + + | LACTIC ACID | Routin | 03/16/2018 | | Results for this | | | e | 7:17 PM | | procedure are in the | | | | PDT | | results section. | + +--------+ + + + | EXTERNAL LAB: CBC | Routin | 03/16/2018 | | Results for this | | | e | 7:15 PM | | procedure are in the | | | | PDT | | results section. | + +--------+ + + + | PROCALCITONIN, SERUM | Routin | 03/16/2018 | | Results for this | | | e | 7:15 PM | | procedure are in the | | | | PDT | | results section. | + +--------+ + + + | CULTURE, BLOOD | STAT | 03/16/2018 | | Results for this | | | | 7:15 PM | | procedure are in the | | | | PDT | | results section. | + +--------+ + + + | , SERUM, | Routin | 03/16/2018 | | Results for this | | QUAL | e | 7:15 PM | | procedure are in the | | | | PDT | | results section. | + +--------+ + + + | PHOSPHORUS | Routin | 03/16/2018 | | Results for this | | | e | 7:15 PM | | procedure are in the | | | | PDT | | results section. | + +--------+ + + + | MAGNESIUM | Routin | 03/16/2018 | | Results for this | | | e | 7:15 PM | | procedure are in the | | | | PDT | | results section. | + +--------+ + + + | LIPASE | Routin | 03/16/2018 | | Results for this | | | e | 7:15 PM | | procedure are in the | | | | PDT | | results section. | + +--------+ + + + | COMPREHENSIVE | Routin | 03/16/2018 | | Results for this | | METABOLIC PANEL | e | 7:15 PM | | procedure are in the | | | | PDT | | results section. | + +--------+ + + + documented in this encounter Results CBC no Differential (03/18/2018 4:54 AM PDT) + + + + + + | Component | Value | Ref Range | Performed | Pathologist | | | | | At | Signature | + + + + + + | WBC | 7.63 | 3.80 - 11.00 | EXTERNAL | | | | | K/uL | LAB | | + + + + + + | Red Blood | 3.51 (L) | 3.70 - 5.10 | EXTERNAL | | | Cells | | M/uL | LAB | | | Counted | | | | | + + + + + + | Hemoglobin | 10.5 (L) | 11.3 - 15.5 | EXTERNAL | | | | | g/dL | LAB | | + + + + + + | Hematocrit, | 31.5 (L) | 34.0 - 46.0 % | EXTERNAL | | | POC | | | LAB | | + + + + + + | MCV | 89.9 | 80.0 - 100.0 fl | EXTERNAL | | | | | | LAB | | + + + + + + | MCH | 30.1 | 27.0 - 34.0 pg | EXTERNAL | | | | | | LAB | | + + + + + + | MCHC | 33.4 | 32.0 - 35.5 | EXTERNAL | | | | | g/dL | LAB | | + + + + + + | RDW-CV | 48.6 | 37 - 53 fl | EXTERNAL | | | | | | LAB | | + + + + + + | Platelet | 255 | 150 - 400 K/uL | EXTERNAL | | | Count | | | LAB | | | Plasma | | | | | + + + + + + | MPV | 8.6Comment: Testing | fl | EXTERNAL | | | | performed at [facility], [address] | | LAB | | | | [address], | | | | | | [place] [address] | | | | + + + + + + + + | Specimen | + + | | + + + +---------+ + + | Performing | Address | City/State/Zipcode | Phone Number | | Organization | | | | + +---------+ + + | EXTERNAL LAB | | | | + +---------+ + + Comprehensive Metabolic Panel (03/18/2018 4:54 AM PDT) + + + + + [...] + + + | K | 3.7Comment: SPECIMEN | 3.5 - 4.9 | EXTERNAL [...] + + + | Glucose, | 81Comment: SPECIMEN | 65 - 99 mg/dL | EXTERNAL | | | Fasting | SLIGHTLY HEMOLYZED | | LAB | | + + + + + + | BUN | 19 | 8 - 25 mg/dL | EXTERNAL | | | | | | LAB | | + + + + + + | Creatinine | 12.6 (H)Comment: | 0.50 - 1.00 | EXTERNAL | | | | SPECIMEN SLIGHTLY | mg/dL | LAB | | | | HEMOLYZED | | | | + + + + + + | BUN/Creatin | 2 | | EXTERNAL | | | ine Ratio | | | LAB | | + + + + + + | Calcium | 7.9 (L) | 8.5 - 10.5 | EXTERNAL | | | | | mg/dL | LAB | | + + + + + + | Protein, | 5.6 (L) | 6.3 - 8.2 g/dL | EXTERNAL | | | Total | | | LAB | | + + + + + + | Albumin | 2.1 (L) | 3.6 - 5.0 g/dL | EXTERNAL | | | | | | LAB | | + + + + + + | Globulin | 3.5 | 1.3 - 4.9 g/dL | EXTERNAL | | | | | | LAB | | + + + + + + | A/G Ratio | 0.6 (L) | 1.0 - 2.4 | EXTERNAL | | | | | | LAB | | + + + + + + | Bilirubin | 0.4Comment: SPECIMEN | 0.1 - 1.5 mg/dL | EXTERNAL | | | Total | SLIGHTLY HEMOLYZED | | LAB | | + + + + + + | ALP, | 56 | 35 - 115 U/L | EXTERNAL | | | External | | | LAB | | + + + + + + | AST | 46 (H)Comment: SPECIMEN | 10 - 45 U/L | EXTERNAL | | | | SLIGHTLY HEMOLYZED | | LAB | | + + + + + + | ALT | 23Comment: SPECIMEN | 10 - 65 U/L | EXTERNAL | | | | SLIGHTLY HEMOLYZED | | LAB | [...] [address] | | | | | | [facility], | | | | | | [place] [address] | | | | + + + + + + + + | Specimen | + + | Blood specimen | | (specimen) | + + + +---------+ + + | Performing | Address | City/State/Zipcode | Phone Number | | Organization | | | | + +---------+ + + | EXTERNAL LAB | | | | + +---------+ + + CA 125, Quant (03/17/2018 9:27 AM PDT) + + + + + + | Component | Value | Ref Range | Performed | Pathologist | | | | | At | Signature | + + + + + + | Cancer | 3.8Comment: THE [facility] | 0 - 35 U/mL | EXTERNAL | | | Antigen 125 | (FORMERLY GURPREET) ADVIA | | LAB | | | | CENTAUR IMMUNOASSAY | | | | | | METHOD IS USED.RESULTS | | | | | | OBTAINED WITH DIFFERENT | | | | | | ASSAY METHODS OR KITS | | | | | | CANNOT BE USED | | | | | | INTERCHANGEABLY.Testing | | | | | | performed at [facility], [address] | | | | | | [facility], | | | | | | [place] [address] | | | | + + + + + + + + | Specimen | + + | Blood specimen | | (specimen) | + + + +---------+ + + | Performing | Address | City/State/Zipcode | Phone Number | | Organization | | | | + +---------+ + + | EXTERNAL LAB | | | | + +---------+ + + CK Total (03/17/2018 9:27 AM PDT) + + + + + + | Component | Value | Ref Range | Performed | Pathologist | | | | | At | Signature | + + + + + + | CK, Total | 53Comment: Testing | 30 - 240 U/L | EXTERNAL | | | | performed at [facility];[address] | LAB | | | | [address];[place], [place] | | | | | | [address] | | | | + + + [...] Culture, Body Fluid, Sterile, Smear, with Anaerobes (03/17/2018 9:20 AM PDT) + + | Specimen | [...] +---------+ + + Cell Count, Body Fluid (03/17/2018 9:20 AM PDT) + + | Specimen | + + | | + + + + + | Narrative | Performed At | + + + | FLUID TYPE PERITONEAL FLUID | EXTERNAL LAB | | COLOR COLORLESS | | | APPEARANCE CLEAR RBC'S | | | 19 TOTAL | | | NUCLEATED CELLS 31 NEUTROPHILS | | | 26 LYMPHOCYTES | | | 30 MONOCYTES/MACROPHAGES | | | 39 Mesothelial Cells | | | 1 OTHER CELLS 3 | | | CELLS COUNTED 100 | | | Testing performed at [facility];[address] [place] [address];[place] [address] | | + + + + +---------+ + + | Performing | Address | City/State/Zipcode | Phone Number | | Organization | | | | + +---------+ + + | EXTERNAL LAB | | | | + +---------+ + + PATHOLOGY CONSULT REQUEST (03/17/2018 9:20 AM PDT) + + + + + + | Component | Value | Ref Range | Performed | Pathologist | | | | | At | Signature | + + + + + + | Pathologist | Comment: Review of | | EXTERNAL | | | Review 1 | peritoneal fluid | | LAB | | | | collected 03/17/2018. I | | | | | | agree with the cell | | | | | | count. The "other" cells | | | | | | reported in the cell | | | | | | count are mesothelial | | | | | | cells. Acute | | | | | | inflammation is present. | | | | | | The history of renal | | | | | | disease is noted. Please | | | | | | correlate clinically. | | | | | | Dr. Frances Douglas | | | | | | 03/18/2018 AMB/emb | | | | | | Testing performed at | | | | | | [facility];[address] [place] [address] | | | | | | [facility];[place] [address] | | | | + + + + + + + + | Specimen | + + | | + + + +---------+ + + | Performing | Address | City/State/Zipcode | Phone Number | | Organization | | | | + +---------+ + + | EXTERNAL LAB | | | | + +---------+ + + External Lab: CBC (03/17/2018 3:11 AM PDT) + + + + + + | Component | Value | Ref Range | Performed | Pathologist | | | | | At | Signature | + + + + + + | WBC | 14.19 (H) | 3.80 - 11.00 | EXTERNAL | | | | | K/uL | LAB | | + + + + + + | Red Blood | 3.34 (L) | 3.70 - 5.10 | EXTERNAL | | | Cells | | M/uL | LAB | | | Counted | | | | | + + + + + + | Hemoglobin | 9.8 (L) | 11.3 - 15.5 | EXTERNAL | | | | | g/dL | LAB | | + + + + + + | Hematocrit, | 29.8 (L) | 34.0 - 46.0 % | EXTERNAL | | | POC | | | LAB | | + + + + + + | MCV | 89.2 | 80.0 - 100.0 fl | EXTERNAL | | | | | | LAB | | + + + + + + | MCH | 29.3 | 27.0 - 34.0 pg | EXTERNAL | | | | | | LAB | | + + + + + + | MCHC | 32.8 | 32.0 - 35.5 | EXTERNAL | | | | | g/dL | LAB | | + + + + + + | RDW-CV | 45.5 | 37 - 53 fl | EXTERNAL | | | | | | LAB | | + + + + + + | Platelet | 271 | 150 - 400 K/uL | EXTERNAL | | | Count | | | LAB | | | Plasma | | | | | + + + + + + | MPV | 9.3 | fl | EXTERNAL | | | | | | LAB | | + + + + + + | Differentia | MANUAL | | EXTERNAL | | | l Type | | | LAB | | + + + + + + | Segmented | 72 | % | EXTERNAL | | | Neutrophils | | | LAB | | | Manual | | | | | + + + + + + | % Bands | 1 | % | EXTERNAL | | | | | | LAB | | + + + + + + | Lymphocytes | 17 | % | EXTERNAL | | | Manual | | | LAB | | + + + + + + | Monocytes | 7 | % | EXTERNAL | | | Manual | | | LAB | | + + + + + + | Eosinophils | 2 | % | EXTERNAL | | | Manual | | | LAB | | + + + + + + | Basophils | 1 | % | EXTERNAL | | | Manual | | | LAB | | + + + + + + | Absolute | 10.23 (H) | 1.90 - 7.40 | EXTERNAL | | | Neutrophils | | K/uL | LAB | | + + + + + + | Bands | 0.14 | 0.00 - 0.20 | EXTERNAL | | | Manual | | K/uL | LAB | | + + + + + + | Absolute | 2.41 | 1.00 - 3.90 | EXTERNAL | | | Lymphocytes | | K/uL | LAB | | + + + + + + | Absolute | 0.99 (H) | 0.00 - 0.80 | EXTERNAL | | | Monocytes | | K/uL | LAB | | + + + + + + | Absolute | 0.28 | 0.00 - 0.50 | EXTERNAL | | | Eosinophils | | K/uL | LAB | | + + + + + + | Absolute | 0.14 (H) | 0.00 - 0.10 | EXTERNAL | | | Basophils | | K/uL | LAB | | + + + + + + | RBC | RBC AND PLT MORPHOLOGY | | EXTERNAL | | | Morphology | APPEAR NORMALComment: | | LAB | | | | Testing performed at | | | | | | [facility], [address] [facility] | | | | | | [place] | | | | | | [address] | | | | + + + + + + + + | Specimen | + + | Blood specimen | | (specimen) | + + + +---------+ + + | Performing | Address | City/State/Zipcode | Phone Number | | Organization | | | | + +---------+ + + | EXTERNAL LAB | | | | + +---------+ + + C-Reactive Protein (03/17/2018 3:11 AM PDT) + + + + + + | Component | Value | Ref Range | Performed | Pathologist | | | | | At | Signature | + + + + + + | CRP | <0.3Comment: Testing | mg/dL | EXTERNAL | | | | performed at [facility], [address] | | LAB | | | | [address], | | | | | | [place] [address] | | | | + + + + + + + + | Specimen | + + | Blood specimen | | (specimen) | + + + +---------+ + + | Performing | Address | City/State/Zipcode | Phone Number | | Organization | | | | + +---------+ + + | EXTERNAL LAB | | | | + +---------+ + + Phosphorus (03/17/2018 3:11 AM PDT) + + + + + + | Component | Value | Ref Range | Performed | Pathologist | | | | | At | Signature | + + + + + + | PHOSPHORUS | 3.2Comment: Testing | 2.3 - 4.8 mg/dL | EXTERNAL | | | | performed at [facility], [address] | | LAB | | | | [address], | | | | | | [place] [address] | | | | + + + + + + + + | Specimen | + + | Blood specimen | | (specimen) | + + + +---------+ + + | Performing | Address | City/State/Zipcode | Phone Number | | Organization | | | | + +---------+ + + | EXTERNAL LAB | | | | + +---------+ + + Magnesium (03/17/2018 3:11 AM PDT) + + + + + + | Component | Value | Ref Range | Performed | Pathologist | | | | | At | Signature | + + + + + + | Magnesium | 1.8Comment: Testing | 1.7 - 2.4 mg/dL | EXTERNAL | | | | performed at [facility], [address] | | LAB | | | | [address], | | | | | | [place] [address] | | | | + + + [...] + +---------+ + + Comprehensive Metabolic Panel (03/17/2018 3:11 AM PDT) + + + + + + | Component | Value | Ref Range | Performed | Pathologist | | | | | At | Signature | + + + + + + | Na | 139 | 135 - 145 | EXTERNAL | [...] 14 | 5 - 20 mmol/L | EXTERNAL | | | | | | LAB | | + + + + + + | Glucose, | 78 | 65 - 99 mg/dL | EXTERNAL | | | Fasting | | | LAB | | + + + + + + | BUN | 20 | 8 - 25 mg/dL | EXTERNAL | | | | | | LAB | | + + + + + + | Creatinine | 12.3 (H) | 0.50 - 1.00 | EXTERNAL | | | | | mg/dL | LAB | | + + + + + + | BUN/Creatin | 2 | | EXTERNAL | | | ine Ratio | | | LAB | | + + + + + + | Calcium | 7.8 (L) | 8.5 - 10.5 | EXTERNAL | | | | | mg/dL | LAB | | + + + + + + | Protein, | 5.8 (L) | 6.3 - 8.2 g/dL | EXTERNAL | | | Total | | | LAB | | + + + + + + | Albumin | 2.8 (L) | 3.6 - 5.0 g/dL | EXTERNAL | | | | | | LAB | | + + + + + + | Globulin | 3.0 | 1.3 - 4.9 g/dL | EXTERNAL | | | | | | LAB | | + + + + + + | A/G Ratio | 0.9 (L) | 1.0 - 2.4 | EXTERNAL | | | | | | LAB | | + + + + + + | Bilirubin | 0.4 | 0.1 - 1.5 mg/dL | EXTERNAL | | | Total | | | LAB | | + + + + + + | ALP, | 48 | 35 - 115 U/L | EXTERNAL | | | External | | | LAB | | + + + + + + | AST | 15 | 10 - 45 U/L | EXTERNAL | | | | | | LAB | | + + + + + + | ALT | 17 | 10 - 65 U/L | EXTERNAL [...] | | | | | | [address], | | | | | | [place] [address] | | | | + + + + + + + + | Specimen | + + | Blood specimen | | (specimen) | + + + +---------+ + + | Performing | Address | City/State/Zipcode | Phone Number | | Organization | | | | + +---------+ + + | EXTERNAL LAB | | | | + +---------+ + + Lactic Acid (03/17/2018 3:10 AM PDT) + + + + + + | Component | Value | Ref Range | Performed | Pathologist | | | | | At | Signature | + + + + + + | Lactate | 1.1Comment: Testing | 0.4 - 2.0 | EXTERNAL | | | | performed at [facility];[address] | mmol/L | LAB | | | | [address];[place] | | | | | | [address] | | | | + + + + + + + + | Specimen | + + | | + + + +---------+ + + | Performing | Address | City/State/Zipcode | Phone Number | | Organization | | | | + +---------+ + + | EXTERNAL LAB | | | | + +---------+ + + Cortisol, PM (03/17/2018 2:59 AM PDT) + + + + + + | Component | Value | Ref Range | Performed | Pathologist | | | | | At | Signature | + + + + + + | CORTISOL, | 12.2Comment: Testing | 3.0 - 16.0 | EXTERNAL | | | PM | performed at [facility], [address] | ug/dL | LAB | | | | [address], | | | | | | [place] [address] | | | | + + + + + + + + | Specimen | + + | | + + + +---------+ + + | Performing | Address | City/State/Zipcode | Phone Number | | Organization | | | | + +---------+ + + | EXTERNAL LAB | | | | + +---------+ + + ECG 12 lead (03/17/2018 12:21 AM PDT) + + + + + + | Component | Value | Ref Range | Performed | Pathologist | | | | | At | Signature | + + + + + + | DIAGNOSIS: | Normal sinus rhythmLeft | | EXTERNAL | | | | axis deviationST & T | | LAB | | | | wave abnormality, | | | | | | consider inferior | | | | | | ischemiaProlonged | | | | | | QTAbnormal ECGWhen | | | | | | compared with ECG of | | | | | | 06-MAR-2018 08:38,QRS | | | | | | axis Shifted | | | | | | leftInverted T waves | | | | | | have replaced | | | | | | nonspecific T wave | | | | | | abnormality in Inferior | | | | | [...] | | | | | ONLY, -COMPUTER (260), | | | | | | editor continuity and script Rashel Polanco | | | | | | Rogelio ([id number]) on 03/17/2018 | | | | | | 1:17:24 AM | | | | + + + + + + + + | Specimen | + + | | + + + + + | Narrative | Performed At | + + + | Historically converted procedure from [facility] environment | EXTERNAL LAB | + + + + +---------+ + + | Performing | Address | City/State/Zipcode | Phone Number | | Organization | | | | + +---------+ + + | EXTERNAL LAB | | | | + +---------+ + + CT Abdomen Pelvis w Contrast (03/16/2018 9:18 PM PDT) + + | Specimen | + + | | + + + + + | Impressions | Performed At | + + + | 1. Right adnexal mass concerning for ovarian neoplasm given the | | | persistence and slight interval increase in size. Gynecological | | | consultation recommended. Consider further nonemergent imaging with | | | dedicated pelvic MRI without and with contrast. 2. Moderate amount | | | of free fluid. 3. Colonic diverticulosis without definite evidence | | | of acute diverticulitis. Electronically signed by Ray Briseno on | | | 03/16/2018 10:33 PM | | + + + + + + | Narrative | Performed At | + + + | RAMONA OCONNOR [address] ABDOMEN PELVIS W | | | CONTRAST 03/16/2018 9:18 PM INDICATION: Abdominal pain | | | COMPARISON: 03/05/2018 and 09/07/2017 TECHNIQUE: 5-mm axial images | | | were acquired through the abdomen and pelvis with IV contrast. Dose | | | reduction techniques were used including automated exposure control, | | | iterative reconstruction technique, and/or automated adjustable mAs | | | based on patient size. Oral Contrast: None IV contrast: 100 mL | | | Isovue-300 FINDINGS: The visualized lung bases are unremarkable. | | | 1.8 cm hypodensity adjacent to the falciform fissure (series 3, | | | image 27) not significantly changed from the prior exam and an area | | | typical for fatty change. The gallbladder, pancreas, and spleen are | | | unremarkable. Left adrenal nodule again demonstrated measuring 1.3 | | | cm, stable to the prior exams and likely representing adenoma. The | | | gallbladder is unremarkable. The kidneys are atrophic. No | | | hydronephrosis. Colonic diverticulosis without evidence of acute | | | diverticulitis. Small bowel is nonobstructed. Hypodensity within | | | the fundus of the uterus measuring 1 cm likely representing a fibroid. | | | Probable nabothian cysts seen in the region of the cervix. There is a | | | right adnexal mass measuring 3.8 x 2.6 cm, which has demonstrated | | | slow interval increase in size since 01/22/2017. Neoplastic etiology | | | not excluded. Peritoneal dialysis catheter noted terminating in | | | the pelvis. No pathologically enlarged lymph nodes are | | | demonstrated within the abdomen or pelvis. There are no acute | | | osseous abnormalities. | | + + + + + | Procedure Note | + + | Endy, Rad Conversion - 06/23/2019 11:55 AM PDT RAMONA MENDOZA years | | FemaleCT ABDOMEN PELVIS W CONTRAST03/16/2018 9:18 PM INDICATION: Abdominal pain | | COMPARISON: 03/05/2018 and 09/07/2017 TECHNIQUE:5-mm axial images were acquired through | | the abdomen and pelvis with IV contrast. Dose reduction techniques were used including | | automated exposure control, iterative reconstruction technique, and/or automated | | adjustable mAs based on patient size.Oral Contrast: NoneIV contrast: 100 mL Isovue-300 | | FINDINGS: The visualized lung bases are unremarkable. 1.8 cm hypodensity adjacent to the | | falciform fissure (series 3, image 27) not significantly changed from the prior exam | | and an area typical for fatty change. The gallbladder, pancreas, and spleen are | | unremarkable. Left adrenal nodule again demonstrated measuring 1.3 cm, stable to the | | prior exams and likely representing adenoma. The gallbladder is unremarkable. The | | kidneys are atrophic. No hydronephrosis. Colonic diverticulosis without evidence of | | acute diverticulitis. Small bowel is nonobstructed. Hypodensity within the fundus of the | | uterus measuring 1 cm likely representing a fibroid. Probable nabothian cysts seen in | | the region of the cervix. There is a right adnexal mass measuring 3.8 x 2.6 cm, which | | has demonstrated slow interval increase in size since 01/22/2017. Neoplastic etiology not | | excluded. Peritoneal dialysis catheter noted terminating in the pelvis. No | | pathologically enlarged lymph nodes are demonstrated within the abdomen or pelvis. There | | are no acute osseous abnormalities. IMPRESSION: 1. Right adnexal mass concerning for | | ovarian neoplasm given the persistence and slight interval increase in size. | | Gynecological consultation recommended. Consider further nonemergent imaging with | | dedicated pelvic MRI without and with contrast.2. Moderate amount of free fluid.3. | | Colonic diverticulosis without definite evidence of acute diverticulitis. Electronically | | signed by Ray Briseno on 03/16/2018 10:33 PM | | | |Hypodensity within the fundus of the uterus measuring 1 cm likely representing a fibroid. P robable nabothian cysts seen in the region of the cervix. There is a right adnexal mass arabella uring 3.8 x 2.6 cm, which has demonstrated slow interval increase in | |size since 01/22/2017. Neoplastic etiology not excluded. | | | |Peritoneal dialysis catheter noted terminating in the pelvis. | | | |No pathologically enlarged lymph nodes are demonstrated within the abdomen or pelvis. | | | |There are no acute osseous abnormalities. | | | |IMPRESSION: | |1. 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 Gynecological consultation recommended. Consider further nonemergent imaging with dedicated pelvic MRI without and with contrast. | |2. Moderate amount of free fluid. | |3. Colonic diverticulosis without definite evidence of acute diverticulitis. | | | | | + + Culture, Blood, 2nd Specimen (03/16/2018 7:26 PM PDT) + + | Specimen | + + | Blood specimen | | (specimen) | + + + + + | Narrative | Performed At | + + + | Specimen Description BLOOD, PERIPHERAL DRAW | EXTERNAL LAB | | SPECIAL REQUESTS LH CULTURE | | | NO GROWTH 6 DAYS | | + + + + +---------+ + + | Performing | Address | City/State/Zipcode | Phone Number | | Organization | | | | + +---------+ + + | EXTERNAL LAB | | | | + +---------+ + + Lactic Acid (03/16/2018 7:17 PM PDT) + + + + + + | Component | Value | Ref Range | Performed | Pathologist | | | | | At | Signature | + + + + + + | Lactate | 1.3Comment: Testing | 0.4 - 2.0 | EXTERNAL | | | | performed at [facility];[address] | mmol/L | LAB | | | | [address];[place] | | | | | | [address] | | | | + + + + + + + + | Specimen | + + | | + + + +---------+ + + | Performing | Address | City/State/Zipcode | Phone Number | | Organization | | | | + +---------+ + + | EXTERNAL LAB | | | | + +---------+ + + Culture, Blood (03/16/2018 7:15 PM PDT) + + | Specimen | + + | Blood specimen | | (specimen) | + + + + + | Narrative | Performed At | + + + | Specimen Description BLOOD, PERIPHERAL DRAW | EXTERNAL LAB | | SPECIAL REQUESTS RAC CULTURE | | | NO GROWTH 6 DAYS | | + + + + +---------+ + + | Performing | Address | City/State/Zipcode | Phone Number | | Organization | | | | + +---------+ + + | EXTERNAL LAB | | | | + +---------+ + + Procalcitonin (03/16/2018 7:15 PM PDT) + + + + + + | Component | Value | Ref Range | Performed | Pathologist | | | | | At | Signature | + + + + + + | PROCALCITON | 0.87 (H)Comment: | ng/mL | EXTERNAL | | [...] | | | | | | at [facility];[address] [place] [address] | | | | | | [facility];[place] [address] | | | | + + + + + + + + | Specimen | + + | | + + + +---------+ + + | Performing | Address | City/State/Zipcode | Phone Number | | Organization | | | | + +---------+ + + | EXTERNAL LAB | | | | + +---------+ + + External Lab: CBC (03/16/2018 7:15 PM PDT) + + + + + + | Component | Value | Ref Range | Performed | Pathologist | | | | | At | Signature | + + + + + + | WBC | 17.53 (H) | 3.80 - 11.00 | EXTERNAL | | | | | K/uL | LAB | | + + + + + + | Red Blood | 4.51 | 3.70 - 5.10 | EXTERNAL | | | Cells | | M/uL | LAB | | | Counted | | | | | + + + + + + | Hemoglobin | 13.3 | 11.3 - 15.5 | EXTERNAL | | | | | g/dL | LAB | | + + + + + + | Hematocrit, | 39.8 | 34.0 - 46.0 % | EXTERNAL | | | POC | | | LAB | | + + + + + + | MCV | 88.3 | 80.0 - 100.0 fl | EXTERNAL | | | | | | LAB | | + + + + + + | MCH | 29.5 | 27.0 - 34.0 pg | EXTERNAL | | | | | | LAB | | + + + + + + | MCHC | 33.5 | 32.0 - 35.5 | EXTERNAL | | | | | g/dL | LAB | | + + + + + + | RDW-CV | 45.5 | 37 - 53 fl | EXTERNAL | | | | | | LAB | | + + + + + + | Platelet | 362 | 150 - 400 K/uL | EXTERNAL | | | Count | | | LAB | | | Plasma | | | | | + + + + + + | MPV | 8.9 | fl | EXTERNAL | | | | | | LAB | | + + + + + + | Differentia | AUTOMATED | | EXTERNAL | | | l Type | | | LAB | | + + + + + + | % Segmented | 87.52 | % | EXTERNAL | | | | | | LAB | | | Neutrophils | | | | | + + + + + + | % | 6.73 | % | EXTERNAL | | | Lymphocytes | | | LAB | | + + + + + + | % Monocytes | 5.13 | % | EXTERNAL | | | | | | LAB | | + + + + + + | % | 0.34 | % | EXTERNAL | | | Eosinophils | | | LAB | | + + + + + + | % Basophils | 0.28 | % | EXTERNAL | | | | | | LAB | | + + + + + + | Absolute | 15.34 (H) | 1.90 - 7.40 | EXTERNAL | | | Segmented | | K/uL | LAB | | | Neutrophils | | | | | + + + + + + | Absolute | 1.18 | 1.00 - 3.90 | EXTERNAL | | | Lymphocytes | | K/uL | LAB | | + + + + + + | Absolute | 0.90 (H) | 0.00 - 0.80 | EXTERNAL | | | Monocytes | | K/uL | LAB | | + + + + + + | Absolute | 0.06 | 0.00 - 0.50 | EXTERNAL | | | Eosinophils | | K/uL | LAB | | + + + + + + | Absolute | 0.05 | 0.00 - 0.10 | EXTERNAL | [...] | | | | | performed at [facility];[address] | | | | | | [address];[place], [place] | | | | | | [address] | | | | + + + [...] + +---------+ + + , Serum, Qual (03/16/2018 7:15 PM PDT) + + + + + + | Component | Value | Ref Range | Performed | Pathologist | | | | | At | Signature | + + + + + + | HCG | NEGATIVEComment: Testing | | EXTERNAL | | | QUALITATIVE | performed at [facility];[address] | | LAB | | | | [address];[place], [place] | | | | | | [address] | | | | + + + + + + + + | Specimen | + + | Blood specimen | | (specimen) | + + + +---------+ + + | Performing | Address | City/State/Zipcode | Phone Number | | Organization | | | | + +---------+ + + | EXTERNAL LAB | | | | + +---------+ + + Phosphorus (03/16/2018 7:15 PM PDT) + + + + + + | Component | Value | Ref Range | Performed | Pathologist | | | | | At | Signature | + + + + + + | PHOSPHORUS | 2.7Comment: Testing | 2.3 - 4.8 mg/dL | EXTERNAL | | | | performed at [facility] | | LAB | | | | [facility], [place] | | | | | | [address] | | | | + + + + + + + + | Specimen | + + | Blood specimen | | (specimen) | + + + +---------+ + + | Performing | Address | City/State/Zipcode | Phone Number | | Organization | | | | + +---------+ + + | EXTERNAL LAB | | | | + +---------+ + + Magnesium (03/16/2018 7:15 PM PDT) + + + + + + | Component | Value | Ref Range | Performed | Pathologist | | | | | At | Signature | + + + + + + | Magnesium | 2.0Comment: Testing | 1.7 - 2.4 mg/dL | EXTERNAL | | | | performed at [facility];[address] | | LAB | | | | [address];[place] | | | | | | [address] | | | | + + + + + + + + | Specimen | + + | Blood specimen | | (specimen) | + + + +---------+ + + | Performing | Address | City/State/Zipcode | Phone Number | | Organization | | | | + +---------+ + + | EXTERNAL LAB | | | | + +---------+ + + Lipase (03/16/2018 7:15 PM PDT) + + + + + + | Component | Value | Ref Range | Performed | Pathologist | | | | | At | Signature | + + + + + + | Lipase | 106Comment: Testing | 73 - 393 U/L | EXTERNAL | | | | performed at [facility];[address] | | LAB | | | | [address];[place], [place] | | | | | | [address] | | | | + + + [...] + +---------+ + + Comprehensive Metabolic Panel (03/16/2018 7:15 PM PDT) + + + + + [...] 14 | 5 - 20 mmol/L | EXTERNAL | | | | | | LAB | | + + + + + + | Glucose, | 90 | 65 - 99 mg/dL | EXTERNAL | | | Fasting | | | LAB | | + + + + + + | BUN | 18 | 8 - 25 mg/dL | EXTERNAL | | | | | | LAB | | + + + + + + | Creatinine | 12 (H) | 0.50 - 1.00 | EXTERNAL | | | | | mg/dL | LAB | | + + + + + + | BUN/Creatin | 2 | | EXTERNAL | | | ine Ratio | | | LAB | | + + + + + + | Calcium | 9.1 | 8.5 - 10.5 | EXTERNAL | | | | | mg/dL | LAB | | + + + + + + | Protein, | 6.8 | 6.3 - 8.2 g/dL | EXTERNAL | | | Total | | | LAB | | + + + + + + | Albumin | 2.3 (L) | 3.6 - 5.0 g/dL | EXTERNAL | | | | | | LAB | | + + + + + + | Globulin | 4.5 | 1.3 - 4.9 g/dL | EXTERNAL [...] + + + + | ALP, | 75 | 35 - 115 U/L | EXTERNAL | | | External | | | LAB | | + + + + + + | AST | 19 | 10 - 45 U/L | EXTERNAL | | | | | | LAB | | + + + + + + | ALT | 22 | 10 - 65 U/L | EXTERNAL [...] | | | | | | at [facility];[address] [place] [address] | | | | | | [facility];[place] [address] | | | | + + + [...] unspecified abdominal location | + + | Hypotension, unspecified hypotension type | + + | Chronic kidney disease, unspecified CKD stage | + + | End-stage renal disease on peritoneal dialysis (HCC) End stage renal disease | + + | Ovarian mass, right | + + documented in this encounter
--- OUTSIDE RECORDS SUMMARY | ~2020-05-11 | XMS | Encounter Summary ---
Demographics + + + | Address | [address] | | | [place] [address] | + + + | Home Phone | | + + + | Preferred Language | Unknown | + + + | Marital Status | | + + + | Jew Affiliation | Unknown | + + + | Race | Unknown | + + + | Ethnic Group | Unknown | + + + Author + + + | Author | [facility] | | | and [place] | + + + | Organization | [facility] | | | and [place] | + + + | Address | Unknown | + + + | Phone | Unavailable | + + + Support + + + + + | Name | Relationship | Address | Phone | + + + + + | Lyubov Smalls | ECON | [place], [place] | | | | | [address] | | + + + + + | Lydia Palm | ECON | [place], [place] | | | | | [address] | | + + + + + | melinda METZ" | ECON | [place], [place] | | | [place] | | [address] | | + + + + + | Jose C Oconnor | ECON | [place] | | | | | [place] | | | | | [address] | | + + + + + Care Team Providers + +------+ + | Care Magazine Hand Name | Role | Phone | + +------+ + | Juan F Whitley DO | PCP | | + +------+ + Encounter Details +--------+ + + + + | Date | Type | Department | Care Team | Description | +--------+ + + + + | 05/06/ | Hospital | [facility] | Qasim Pederson MD | | | 2019 | Encounter | [facility] | [address] | | | | | [facility] | [place] | | | | | [address] | [address] | | | | | [facility] | | | | | | [address] | | | | | | [phone] | | | +--------+ + + + [...] + + documented as of this encounter Medications at Time of Discharge [...] Progress Notes Conversion Transaction, Provider Unknown - 05/06/2019 3:50 PM PDTFormatting of this note m ight be different from the original. Nurse Progress Note by Neal Dietz RN at 05/06/19 1550 Author: Neal Dietz RN Service: (none) Author Type: Registered Nurse Filed: 05/06/19 8628 Date of Service: 05/06/19 1550 Status: Signed Clinical Research Coordinator: Neal Dietz RN (Registered Nurse) Pt discharged via WC with family. Vital signs stable; in no apparent distress. All question s/concerns answered regarding discharge instructions with emphasis on s/s of infection keepi ng surg sites clean, and keeping L arm with fistula safe. All necessary prescriptions provid ed with education and side effect information. L arm placed in sling while block still in ef fect. docume nted in this encounter H&P Notes Qasim Pederson MD - 05/06/2019 9:58 AM PDTFormatting of this note might be different from t he original. Interval H&P Note by Qasim Pederson MD at 05/06/19 0958 Author: Qasim Pederson MD Service: Vascular Surgery Author Type: Physician Filed: 05/06/19957 Date of Service: 05/06/19957 Status: Signed Clinical Research Coordinator: Qasim Pederson MD (Physician) [facility] Service: Vascular Surgery Pre-Operative History & Physical Interval Update There have been no significant clinical changes since the completion of the above H&P. Tod ays physical assessment showed HP update PE: Normal appearance, alert and oriented X3 and r espiratory effort normal. Qasim Pederson MD 05/06/2019 *CORE MEASURES REMINDER: If the patient has a known or suspected infection prior to surger y, please add diagnosis to the problem list (consider: Infection 136.9). Source Note Author: Man Jeronimo PA-C Service: (none) Author Type: Physician Balloon Sander - Certifi ed Filed: 04/27/19 1523 Date of Service: 04/27/19 1400 Status: Signed Clinical Research Coordinator: Man Jeronimo PA-C (Physician Balloon Sander - Certified) [facility] History and Physical Examination REASON FOR EVALUATION / CHIEF COMPLAINT: Follow up for AVF malfunction/thrombosis HISTORY OF PRESENT ILLNESS: Ramona Oconnor is a 39 y.o. female patient who has been diagnosed with end stage renal disease and is here for evaluation of arteriovenous fistula (AVF) or hemodialysis access creation. She is well known to our service. She has a significa nt past medical history of hypertension, diverticulitis, and end stage renal disease on hemo dialysis. She was admitted to the hospital for peritonitis and underwent removal of her beba toneal dialysis catheter and placement of a tunneled hemodialysis catheter to initiate hemod ialysis as an inpatient in January 2019. Of note, this was the second time she was treated for diverticulitis. She was seen in follow up in February 2019 and underwent creation of a left br achiobasilic AVF on 03/02/2019. Since it's creation, her AVF was healing well until she sudde elviay lost her thrill one morning. She presented to her HD center about one week later and adv ised them of her lack of thrill in her AVF. An ultrasound was performed on 04/22/2019 showing subacute thrombus throughout AVF with minimal flow. The patient is a right handed person. T he patient is receiving hemodialysis on Friday, Friday and Friday. She continues to use h er right sided hemodialysis catheter for dialysis access. The patient will require a new AVF /AVG creation for hemodialysis access as her first AVF has thrombosed. The patient understan ds that an AVF or AVG is preferred over hemodialysis via tunneled permacath, as the latter h as a greater incidence of catheter-related complications including catheter infection and ca theter occlusion. She additionally reports abdominal pain nearly every day that will last fo r about 1-2 hours in her left lower quadrant. She denies any fever, chills, night sweats, ch est pain, shortness of breath. She has no other concerns today. PAST SURGICAL HISTORY: The patient has a past surgical history that includes Peritoneal cat heter insertion (N/A, 10/28/2015); Esophagogastroduodenoscopy (N/A, 09/10/2017); Catheter Rem oval (N/A, 02/04/2019); [place] tooth extraction; and AV fistula placement (Left, 03/11/2019). PAST MEDICAL HISTORY: The patient has a past medical history of Diverticulitis (01/05/2019); Diverticulosis; ESRD on peritoneal dialysis (10/28/2015); GERD (gastroesophageal reflux dis ease); Hypercalcemia (09/07/2017); Hyperphosphatemia (10/28/2015); Hypocalcemia (10/28/2015) ; Hypokalemia (06/04/2017); Itching (10/28/2015); Metabolic acidosis (10/28/2015); Obesity; O ther chronic pain; Peritonitis associated with peritoneal dialysis (01/24/2017); Peritonitis due to infected peritoneal dialysis catheter (12/08/2018); Secondary hyperparathyroidism; an d Uremia (10/28/2015). FAMILY HISTORY: The patient's family history includes Breast cancer in her maternal grandmo ther; Diabetes in her father; Other (see comments) in her mother. CURRENT MEDICATIONS: Medication Sig LORazepam (ATIVAN) 1 MG tablet Take 1 mg by mouth every 8 (eight) hours as needed for A nxiety. omeprazole (PRILOSEC) 20 MG capsule Take 20 mg by mouth every morning before breakfast. promethazine (PHENERGAN) 25 MG tablet Take 25 mg by mouth every 6 (six) hours as needed for Nausea. sevelamer (RENVELA) 800 MG tablet Take 2 tablets by mouth 3 (three) times daily with me als. traZODone (DESYREL) 100 MG tablet Take 100 mg by mouth nightly. No current facility-administered medications for this visit. No Known Allergies SOCIAL HISTORY: She reports that she quit smoking about 3 years ago. She smoked 0.25 packs per day. She has never used smokeless tobacco. She reports that she uses drugs, including Ma rijuana. She reports that she does not drink alcohol. REVIEW OF SYSTEMS: General: negative for - night sweats, weight gain or weight loss Ophthalmic: negative for - decreased vision, double vision or loss of vision ENT: negative for - nasal congestion, oral lesions, sinus pain, earache, ear discharge, or tinnitus. Neck: negative for - neck pain, neck stiffness, swollen gland, thyroid enlargement. She had really bad neck pain when she was admitted about one month ago. Respiratory: no cough, shortness of breath, wheezing, sputum production, or hemoptysis. Cardiovascular: no chest pain, orthopnea, dyspnea on exertion Gastrointestinal: no jaundice, constipation, black or bloody stools. She reports near daily abdominal pain in her left lower quadrant that will last for a few hours and disappear. Den ies fever, chills, loss of appetite. Genito-Urinary: She does not make any urine [...] Positive for history of depression. VITAL SIGNS: BP 121/80 (BP Location: Right upper arm, Patient Position: Sitting) | Pulse 9 3 | SpO2 96% PHYSICAL EXAM: Constitutional: Well nourished, no signs of distress HENT: Non icteric sclerae, oropharynx clear. Normocephalic and atraumatic. Cardiovascular: Normal rate, regular rhythm Pulmonary/Chest: No respiratory distress. Abdominal: Soft. No abdominal distension. She has mild tenderness with palpation of lower a bdomen.No masses palpated and no hepatomegaly. No organomegaly. No abdominal pulsatile mas s noted. Surgical site is clean and dry and incisions are well healed. No peritoneal signs. Musculoskeletal: Normal range of motion. No evidence of arthritis. Extremities: No edema, cyanosis or clubbing. Neurological: Sheis alert and oriented. No muscle weakness and normal gait. VASCULAR: Palpable femoral pulse bilaterally and palpable dorsalis pedispulsesbilateral ly. Palpable bilateral radial and brachial pulses. RIJV tunneled hemodialysis catheter in pl [place], no signs of infection. Left brachiobasilic AVF with no palpable thrill. Surgical scars are healing well without signs of infection. ASSESSMENT & PLAN: End-stage renal disease on hemodialysis - The patient will require a new AV access creation . We plan to perform an AV graft creation for dialysis access as her vein calibre is very small. We will plan for a loop graft placement for AV access. Benefits and risks of operat ion were explained to the patient. The purpose of the planned procedure is to create a hemodialysis access and allow for her dialysis catheter to be removed. Potential risks of the planned procedure including vessel rupture, arterial thrombosis, arterial occlu patric, bleeding, brachial plexus injury, hematoma formation, and contrast-induced kaylyn rgic reactions were explained to the patient, and the patient agreed to proceed. The planned operation of AV access creation is scheduled for 05/05/2019 at [facility]. Case and care plan directly discussed with Dr. Pederson. Man Jeronimo PA-C Vascular Surgery Man Jha PA-C - 04/27/2019 2:00 PM PDT H&P (View-Only) by Man Jeronimo PA-C at 04/27/19 1400 Author: Man Jeronimo PA-C Service: (none) Author Type: Physician Balloon Sander - Certifi ed Filed: 04/27/19 1523 Date of Service: 04/27/19 1400 Status: Signed Clinical Research Coordinator: Man Jeronimo PA-C (Physician Balloon Sander - Certified) [facility] History and Physical Examination REASON FOR EVALUATION / CHIEF COMPLAINT: Follow up for AVF malfunction/thrombosis HISTORY OF PRESENT ILLNESS: Ramona Oconnor is a 39 y.o. female patient who has been diagnosed with end stage renal disease and is here for evaluation of arteriovenous fistula (AVF) or hemodialysis access creation. She is well known to our service. She has a significa nt past medical history of hypertension, diverticulitis, and end stage renal disease on hemo dialysis. She was admitted to the hospital for peritonitis and underwent removal of her beba toneal dialysis catheter and placement of a tunneled hemodialysis catheter to initiate hemod ialysis as an inpatient in January 2019. Of note, this was the second time she was treated for diverticulitis. She was seen in follow up in February 2019 and underwent creation of a left br achiobasilic AVF on 03/02/2019. Since it's creation, her AVF was healing well until she sudde nly lost her thrill one morning. She presented to her HD center about one week later and adv ised them of her lack of thrill in her AVF. An ultrasound was performed on 04/22/2019 showing subacute thrombus throughout AVF with minimal flow. The patient is a right handed person. T he patient is receiving hemodialysis on Friday, Friday and Friday. She continues to use h er right sided hemodialysis catheter for dialysis access. The patient will require a new AVF /AVG creation for hemodialysis access as her first AVF has thrombosed. The patient understan ds that an AVF or AVG is preferred over hemodialysis via tunneled permacath, as the latter h as a greater incidence of catheter-related complications including catheter infection and ca theter occlusion. She additionally reports abdominal pain nearly every day that will last fo r about 1-2 hours in her left lower quadrant. She denies any fever, chills, night sweats, ch est pain, shortness of breath. She has no other concerns today. PAST SURGICAL HISTORY: The patient has a past surgical history that includes Peritoneal cat heter insertion (N/A, 10/28/2015); Esophagogastroduodenoscopy (N/A, 09/10/2017); Catheter Rem oval (N/A, 02/04/2019); [place] tooth extraction; and AV fistula placement (Left, 03/11/2019). PAST MEDICAL HISTORY: The patient has a past medical history of Diverticulitis (01/05/2019); Diverticulosis; ESRD on peritoneal dialysis (10/28/2015); GERD (gastroesophageal reflux dis ease); Hypercalcemia (09/07/2017); Hyperphosphatemia (10/28/2015); Hypocalcemia (10/28/2015) ; Hypokalemia (06/04/2017); Itching (10/28/2015); Metabolic acidosis (10/28/2015); Obesity; O ther chronic pain; Peritonitis associated with peritoneal dialysis (01/24/2017); Peritonitis due to infected peritoneal dialysis catheter (12/08/2018); Secondary hyperparathyroidism; an d Uremia (10/28/2015). FAMILY HISTORY: The patient's family history includes Breast cancer in her maternal grandmo ther; Diabetes in her father; Other (see comments) in her mother. CURRENT MEDICATIONS: Medication Sig LORazepam (ATIVAN) 1 MG tablet Take 1 mg by mouth every 8 (eight) hours as needed for A nxiety. omeprazole (PRILOSEC) 20 MG capsule Take 20 mg by mouth every morning before breakfast. promethazine (PHENERGAN) 25 MG tablet Take 25 mg by mouth every 6 (six) hours as needed for Nausea. sevelamer (RENVELA) 800 MG tablet Take 2 tablets by mouth 3 (three) times daily with me als. traZODone (DESYREL) 100 MG tablet Take 100 mg by mouth nightly. No current facility-administered medications for this visit. No Known Allergies SOCIAL HISTORY: She reports that she quit smoking about 3 years ago. She smoked 0.25 packs per day. She has never used smokeless tobacco. She reports that she uses drugs, including Ma rijuana. She reports that she does not drink alcohol. REVIEW OF SYSTEMS: General: negative for - night sweats, weight gain or weight loss Ophthalmic: negative for - decreased vision, double vision or loss of vision ENT: negative for - nasal congestion, oral lesions, sinus pain, earache, ear discharge, or tinnitus. Neck: negative for - neck pain, neck stiffness, swollen gland, thyroid enlargement. She had really bad neck pain when she was admitted about one month ago. Respiratory: no cough, shortness of breath, wheezing, sputum production, or hemoptysis. Cardiovascular: no chest pain, orthopnea, dyspnea on exertion Gastrointestinal: no jaundice, constipation, black or bloody stools. She reports near daily abdominal pain in her left lower quadrant that will last for a few hours and disappear. Den ies fever, chills, loss of appetite. Genito-Urinary: She does not make any urine [...] Positive for history of depression. VITAL SIGNS: BP 121/80 (BP Location: Right upper arm, Patient Position: Sitting) | Pulse 9 3 | SpO2 96% PHYSICAL EXAM: Constitutional: Well nourished, no signs of distress HENT: Non icteric sclerae, oropharynx clear. Normocephalic and atraumatic. Cardiovascular: Normal rate, regular rhythm Pulmonary/Chest: No respiratory distress. Abdominal: Soft. No abdominal distension. She has mild tenderness with palpation of lower a bdomen.No masses palpated and no hepatomegaly. No organomegaly. No abdominal pulsatile mas s noted. Surgical site is clean and dry and incisions are well healed. No peritoneal signs. Musculoskeletal: Normal range of motion. No evidence of arthritis. Extremities: No edema, cyanosis or clubbing. Neurological: Sheis alert and oriented. No muscle weakness and normal gait. VASCULAR: Palpable femoral pulse bilaterally and palpable dorsalis pedispulsesbilateral ly. Palpable bilateral radial and brachial pulses. RIJV tunneled hemodialysis catheter in pl [place], no signs of infection. Left brachiobasilic AVF with no palpable thrill. Surgical scars are healing well without signs of infection. ASSESSMENT & PLAN: End-stage renal disease on hemodialysis - The patient will require a new AV access creation . We plan to perform an AV graft creation for dialysis access as her vein calibre is very small. We will plan for a loop graft placement for AV access. Benefits and risks of operat ion were explained to the patient. The purpose of the planned procedure is to create a hemodialysis access and allow for her dialysis catheter to be removed. Potential risks of the planned procedure including vessel rupture, arterial thrombosis, arterial occlu patric, bleeding, brachial plexus injury, hematoma formation, and contrast-induced kaylyn rgic reactions were explained to the patient, and the patient agreed to proceed. The planned operation of AV access creation is scheduled for 05/05/2019 at [facility]. Case and care plan directly discussed with Dr. Pederson. Man Jeronimo PA-C Vascular Surgery documented in this encounter Miscellaneous Notes Op Note - Qasim Pederson MD - 05/06/2019 1:03 PM PDTFormatting of this note might be differ ent from the original. Op Note by Qasim Pederson MD at 05/06/19 1300 Author: Qasim Pederson MD Service: Vascular Surgery Author Type: Physician Filed: 05/06/19 1325 Date of Service: 05/06/19 1303 Status: Addendum Clinical Research Coordinator: Qasim Pederson MD (Physician) Related Notes: Original Note by Qasim Pederson MD (Physician) filed at 05/06/19 1005 [facility] Service: Vascular Surgery Procedure Note NAME: Ramona Oconnor BILLING #: [id number] MR #: [id number] : 1980 DATE OF PROCEDURE: 05/06/2019 SURGEON: Qasim Pederson MD HEALTH INFORMATION MANAGERS: Man Jeronimo PA-C (ARLYN was required to help with positioning, prepping and d raping, exposure of vessels, vascular anastomosis and closure). PREOPERATIVE DIAGNOSIS: 1) End stage renal disease requiring hemodialysis POSTOPERATIVE DIAGNOSIS: Same PROCEDURES: 1) Creation of arteriovenous graft with left axillary artery and axillary vein using 7mm Morgan vine carotid graft ANESTHESIA:Regional block and LMA anesthesia SPECIMEN:None ESTIMATED BLOOD LOSS: Less Than 10 ml BLOOD ADMINISTERED: 0 unit PRBC transfusion COMPLICATIONS:None CONDITION: Stable INDICATIONS: This is a 39 y.o. female patient who has been diagnosed with end stage renal d isease. The patient has had failed left upper arm arteriovenous fistula creation. Her upper extremities vein mapping ultrasound showed no suitable vein for arteriovenous fistula creati on. The patient was therefore taken to the operating room to undergo a left arm AVG creation . The patient understands the benefit and purpose of this procedure is to create an access s ite for hemodialysis. The patient also understands the risks and complications of this proce dure which include bleeding, hematoma, nerve injury, arterial steal syndrome, arm ischemia, infection, arteriovenous graft thrombosis and deep vein thrombosis. She agrees with the plan brody procedure of an arteriovenous fistula graft creation. PROCEDURE IN DETAIL:The patient was brought to the operating room and placed on the opera ting table in the supine. Appropriate time out was performed in which all nursing and surgic al personnel concurred with the surgical plan. Regional and LMA anesthesia was given by the anesthesiologist and maintained throughout the entire procedure. The patient's left arm was prepped sterilely and draped in a standard fashion. A skin scalpel was used to make a skin i ncision at the axillary fossa to expose the axillary vein and axillary artery, which were di ssected circumferentially and encircled with a vessel loop. The Axillary artery was small, m easuring 4.5mm. A 7mm Bovine carotid graft was tunneled under the skin with a curve tunneler to create a loop graft in the upper arm after creating a counter incision to facilitate the tunneling. Intravenous heparin was given by the anesthesiologist. Next, we placed proximal and distal vascular clamps in the axillary artery. A longitudinal arteriotomy was made in th e axillary artery using a #11 blade. The arteriotomy was next extended using a Mendoza scissor .The Bovine carotid graft was then connected to the axillary artery in an end-to-side fash ion using a 6-0 prolene suture. Appropriate flushing was also performed at the completion of the vascular anastomosis. The vascular clamp clamps were released to restore blood flow to the left arm. Proximal and distal vascular control were placed in the axillary vein using ve ssel loops. A longitudinal venotomy was made in the axillary vein using a #11 blade. The oh otomy was next extended using a Mendoza scissor.The Bovine carotid graft was then connected to the axillary vein in an end-to-side fashion using a 6-0 prolene suture. Appropriate flush ing was also performed at the completion of the vascular anastomosis. The vascular clamp cla mps were released to restore blood flow to the arteriovenous graft and axillary vein. Faint thrills were noted in the arteriovenous graft at the completion of the anastomotic reconstru ction. The patient generally has small blood vessels and faintly palpable pulses at baseline . At the end of the arteriovenous graft reconstruction, the patient has a good hand arterial flow as evidenced by Dopplerable signals.The incisions were next irrigated, and the subcu taneous tissues were closed using 3-0 Vicryl sutures, and skin closure was done using 4-0 Mo nocryl sutures. Dermabond and standard gauze dressing was applied over the incisions site. T he patient remained hemodynamically stable throughout the entire operation.The patient suf fered no complication, and the patient was taken to the recovery room in stable condition. I was present throughout the entire procedure. Qasim Pederson MD documented in this enco unter Plan of Treatment Not on filedocumented as of this encounter Procedures + +--------+ + + + | Procedure Name | Priori | Date/Time | Associated Diagnosis | Comments | | | ty | | | | + +--------+ + + + | , SERUM, | Routin | 05/06/2019 | | Results for this | | QUAL | e | 9:38 AM | | procedure are in the | | | | PDT | | results section. | + +--------+ + + + | BASIC METABOLIC | Routin | 05/06/2019 | | Results for this | | PANEL | e | 9:38 AM | | procedure are in the | | | | PDT | | results section. | + +--------+ + + + documented in this encounter Results , Serum, Qual (05/06/2019 9:38 AM PDT) + + + + + + | Component | Value | Ref Range | Performed | Pathologist | | | | | At | Signature | + + + + + + | HCG | NEGATIVEComment: Testing | | EXTERNAL | | | QUALITATIVE | performed at [facility] | | LAB | | | | [facility];[place], [place] | | | | | | [address] | | | | + + + [...] + +---------+ + + Basic Metabolic Panel (05/06/2019 9:38 AM PDT) + + + + + [...] 5.2 (H) | 3.5 - 4.9 | EXTERNAL [...] + + + + | Glucose, | 85 | 65 - 99 mg/dL | EXTERNAL | | | Fasting | | | LAB | | + + + + + + | BUN | 29 (H) | 8 - 25 mg/dL | EXTERNAL | | | | | | LAB | | + + + + + + | Creatinine | 7.22 (H) | 0.50 - 1.00 | EXTERNAL | | | | | mg/dL | LAB | | + + + + + + | BUN/Creatin | 4 | | EXTERNAL | | | ine Ratio | | | LAB | | + + + + + + | Calcium | 9.3 | 8.5 - 10.5 | EXTERNAL | | | | | mg/dL | LAB | | + + + + + + | Estimated | 6 (L)Comment: GFR <60: | mL/min/1.73m2 | EXTERNAL [...] | | | | | performed at [facility] | | | | | | [facility];[place], [place] | | | | | | [address] | | | | + + + [...]
--- OUTSIDE RECORDS SUMMARY | ~2020-05-11 | XMS | Encounter Summary ---
Demographics + + + | Address | [address] | | | [place] [address] | + + + | Home Phone | | + + + | Preferred Language | Unknown | + + + | Marital Status | | + + + | Evangelical Affiliation | Unknown | + + + | Race | Unknown | + + + | Ethnic Group | Unknown | + + + Author + + + | Author | [facility] | | | and [place] | + + + | Organization | [facility] | | | and [place] | + + + | Address | Unknown | + + + | Phone | Unavailable | + + + Support + + + + + | Name | Relationship | Address | Phone | + + + + + | Lyubov Smalls | ECON | [place], [place] | | | | | [phone] | | + + + + + | Lydia Palm | ECON | [place], [place] | | | | | [phone] | | + + + + + | melinda METZ" | ECON | [place], [place] | | | reba | | [phone] | | + + + + + | Tyler Oconnor | ECON | [place] | | | | | [place] | | | | | [phone] | | + + + + + Care Team Providers + +------+ + | Care Lip And Gate Builder Name | Role | Phone | + +------+ + | Juan F Whitley DO | PCP | | + +------+ + Encounter Details +--------+ + + + + | Date | Type | Department | Care Team | Description | +--------+ + + + + | 12/24/ | Hospital | [facility] | [place]ino[place], | Abdominal pain, | | 2019 - | Encounter | [facility] | MD [address] | unspecified | | | | CLINICAL DECISION | [address] | abdominal location; | | 12/27/ | | [address] | [place] [address] | End-stage renal | | 2019 | | [place], [place] | [phone] | disease on | | | | [address] | | peritoneal dialysis | | | | [phone] | | ([facility]); Anemia in | | | | | | ESRD (end-stage | | | | | | renal disease) | | | | | | ([facility]); | | | | | | [...] Summaries by Hilda Edwards DO at 12/27/18 2027 Author: Hilda Edwards DO Service: Hospitalist Author Type: Physician Filed: 12/27/18 1254 Date of Service: 12/27/18 5886 Status: Signed Buyers' Agent: Hilda Edwards DO (Physician) Patient: Ramona Oconnor : 1980 Date of Admission: 12/24/2018 Date of Discharge: 12/27/2018 Treatment Team: Consulting Physician: Chago Rey MD Consulting Physician: Tyler Kaye DO Admitting [...] PD associated peritonitis. She was transferred from [place] for [facility] of care. In ED at [facility] CT abd was performed, imaging [...] Information: [place]: [place] [address] [place] [address] Medication List CONTINUE taking these medications ALPRAZolam 0.5 MG tablet Refills: 0 Commonly known as: XANAX amLODIPine 2.5 MG tablet Refills: 0 Commonly known as: NORVASC cefdinir 300 MG capsule QTY: 9 capsule Refills: 0 Commonly known as: OMNICEF Take 1 capsule by mouth daily. clonazePAM 0.5 MG tablet Refills: 0 Commonly known as: KlonoPIN ergocalciferol 87116 units capsule Refills: 0 Commonly known as: [...] Progress Note by Phillip Gonzalez RN at 12/27/181529 Author: Phillip Gonzalez RN Service: (none) Author Type: Registered Nurse Filed: 12/27/181533 Date of Service: 12/27/181529 Status: Signed Buyers' Agent: Phillip Gonzalez RN (Registered Nurse) Pt given [...] note might be different from the ave ginal. Progress Notes by Tyler Kaye DO at 12/27/18 1007 Author: Tyler Kaye DO Service: Infectious Disease Author Type: Physician Filed: 12/27/18 1156 Date of Service: 12/27/18 1007 Status: Signed Buyers' Agent: Tyler Kaye DO (Physician) [facility] Service: Infectious Disease Progress Note Hospital [...] OR acetaminophen, ALPRAZolam, HYDROcodone-acetaminophen, HYDROmorphone OR HYDROmorphone, wpifnaapp-abnpea-zxikklmzwx, ondansetron OR ondansetron, polyethylen e glycol, simethicone, [...] starti ng on Friday. Discussed with Dr. Rey. Code Status: Full Code TYLER KAYE DO 12/27/2018 onversion Transaction , Provider Unknown - 12/27/2018 7:09 AM PST Progress Notes by Minerva Cruz RPH at 12/27/1809 Author: Minerva Cruz RPH Service: Pharmacy Author Type: Pharmacist Filed: 12/27/18708 Date of Service: 12/27/18708 Status: Signed Buyers' Agent: Minerva Cruz RPH (Pharmacist) Clinical Pharmacy Note: Vancomycin Day 3 Vanco random level today 20.5 mcg/mL; higher than goal 15 to 20 mcg/mL. No dose today. Next vanco trough due tomorrow with AM labs. Minerva Cruz Pharmacist 12/27/2018 7:06 AM onver patric Transaction, Provider Unknown - 12/27/2018 5:00 AM PST Nurse Progress Note by Maryse Khan RN at 12/27/18 0500 Author: Maryse Khan RN Service: (none) Author Type: Registered Nurse Filed: 12/27/18 0751 Date of Service: 12/27/18 0500 Status: Signed Buyers' Agent: Maryse Khan RN (Registered Nurse) End of shift chart audit complete. Maryse Khan RN onver patric Transaction, Provider Unknown - 12/26/2018 7:39 PM PST Nurse Progress Note by Phillip Gonzalez RN at 12/26/181938 Author: Phillip Gonzalez RN Service: (none) Author Type: Registered Nurse Filed: 12/26/181938 Date of Service: 12/26/181938 Status: Signed Buyers' Agent: Phillip Gonzalez RN (Registered Nurse) Chart check complete. Phillip Gonzalez RN ilda Boucher DO - 12/26/2018 4:41 PM PST Progress Notes by Hilda Edwards DO at 12/26/18 1641 Author: Hilda Edwards DO Service: Hospitalist Author Type: Physician Filed: 12/26/18 1652 Date of Service: 12/26/18 1641 Status: Signed Buyers' Agent: Hilda Edwards DO (Physician) [facility] Service: Hospitalist Progress Note Hospital Day: [...] OR acetaminophen, ALPRAZolam, HYDROcodone-acetaminophen, HYDROmorphone OR HYDROmorphone, jxyobpked-kuyldt-xwbubofyad, ondansetron OR ondansetron, polyethylen e glycol, simethicone, [...] 12/26/1844 Date of Service: 12/26/18717 Status: Signed Buyers' Agent: Ag Flores RN (Registered Nurse) End of shift note Pt finished peritoneal dialysis in AM. Pt continued to feel nauseous; received Zofran x2. V VS. 24 hour chart check complete onver patric Transaction, Provider Unknown - 12/26/2018 6:56 AM PST Pharmacy Note by Shelli Bustos RPH at 12/26/18655 Author: Shelli Bustos RPH Service: Pharmacy Author Type: Pharmacist Filed: 12/26/18655 Date of Service: 12/26/18655 Status: Signed Buyers' Agent: Shelli Bustos RPH (Pharmacist) Clinical Pharmacy Note: Vancomycin Day 2 Pharmacy dosing vancomycin for peritoneal dialysis Weight: 80.3 kg WBC: 14.91 INDICATION: peritonitis associated with peritoneal dialysis Vanco random level today 22.7 mcg/mL; higher than goal 15 to 20 mcg/mL. No dose today. Daily level - Next level due tomorrow with AM labs. Bridgett RANDALL 12/26/2018 6:54 AM onver patric Transaction, Provider Unknown - 12/25/2018 7:09 PM PST Nurse Progress Note by Phillip Gonzalez RN at 12/25/181908 Author: Phillip Gonzlaez RN Service: (none) Author Type: Registered Nurse Filed: 12/25/181909 Date of Service: 12/25/181908 Status: Signed Buyers' Agent: Phillip Gonzalez RN (Registered Nurse) Pt care taken over from Liza MARTINEZ. This nurse agrees with her assessments. Pt currently unde rgoing peritoneal dialysis. Chart check complete. Phillip Gonzalez RN ilda Boucher DO - 12/25/2018 3:53 PM PST Progress Notes by Hilda Edwards DO at 12/25/18 4461 Author: Hilda Edwards DO Service: Hospitalist Author Type: Physician Filed: 12/25/18 3576 Date of Service: 12/25/18 4100 Status: Addendum Buyers' Agent: Hilda Edwards DO (Physician) Related Notes: Original Note by Hilda Edwards DO (Physician) filed at 12/25/18 6908 [facility] Service: Hospitalist Progress Note Hospital Day: [...] infection incompletely treate d - Nephrology Dr. Rey consulted for PD and help with antibiotic [...] OR acetaminophen, ALPRAZolam, HYDROcodone-acetaminophen, HYDROmorphone OR HYDROmorphone, atdwfqktb-jtnvql-ktdlahhnfx, ondansetron OR ondansetron, polyethylen e glycol, zolpidem [...] Note by Liza Santana RN at 12/25/18 1478 Author: Liza Santana RN Service: (none) Author Type: Registered Nurse Filed: 12/25/18 1328 Date of Service: 12/25/18 1325 Status: Signed Buyers' Agent: Liza Santana RN (Registered Nurse) Talked with Dr. Rey - he does not think patient needs [...] Note by Liza Santana RN at 12/25/18 1249 Author: Liza Santana RN Service: (none) Author Type: Registered Nurse Filed: 12/25/18 1256 Date of Service: 12/25/18 1249 Status: Signed Buyers' Agent: Liza Santana RN (Registered Nurse) Report handed off to Dimitris MARTINEZ who will assume care of patient. Called Dr. Edwards regarding p atient's code status, need updated POLST form to support DNR/DNI. Dr. Edwards will come talk with pt to clarify her wishes. onver patric Transaction, Provider Unknown - 12/25/2018 12:36 PM PST Pharmacy Note by Katherine Sheehan RPH at 12/25/18 1236 Author: Katherine Sheehan RPH Service: Pharmacy Author Type: Pharmacist Filed: 12/25/18 1236 Date of Service: 12/25/18 1236 Status: Signed Buyers' Agent: Katherine Sheehan RPH (Pharmacist) Discussed with Dr. Rey. He would like to continue with IV antibiotics only at this point and no need to add antibiotics to IP fluid exchange. Dosing recommendations and protocol state to dose ceftazidime 500 mg IV q24, however, per D kalina Rey will increase maintenance dose to ceftazidime 1g IV q24h Katherine Sheehan, PharmD, BCCCP onver patric Transaction, Provider Unknown - 12/25/2018 9:15 AM PST Nurse Progress Note by Liza Santana RN at 12/25/18914 Author: Liza Santana RN Service: (none) Author Type: Registered Nurse Filed: 12/25/18915 Date of Service: 12/25/18914 Status: Signed Buyers' Agent: Liza Santana RN (Registered Nurse) Per family, patient resting at this time, asked for pt to be allow to sleep undisturbed. onver patric Transaction, Provider Unknown - 12/25/2018 8:35 AM PST Case Management by LUCILLE Calvo at 12/25/18834 Author: LUCILLE Calvo Service: (none) Author Type: Systems Trainer Filed: 12/25/18834 Date of Service: 12/25/18834 Status: Signed Buyers' Agent: LUCILLE Calvo (Systems Trainer) CM met with pt for discharge planning. [...] 12/25/18718 Date of Service: 12/25/18717 Status: Signed Buyers' Agent: Liza Santana RN (Registered Nurse) Mode Ramires [...] 12/25/18625 Date of Service: 12/25/18625 Status: Signed Buyers' Agent: Nadege Gupta RN (Registered Nurse) End of shift chart audit completed. onver patric Transaction, Provider Unknown - 12/25/2018 5:49 AM PST Pharmacy Note by Shelli Bustos RPH at 12/25/18548 Author: Shelli Bustos RPH Service: Pharmacy Author Type: Pharmacist Filed: 12/25/18548 Date of Service: 12/25/18548 Status: Signed Buyers' Agent: Shelli Bustos RPH (Pharmacist) Clinical Pharmacy Note: Renal Monitoring Height: 157.5 cm Weight: 80.3 kg Patient is on peritoneal dialysis. Pharmacy dosing for renal function per Dr. Mratinez. Will order the following dosage adjustments: Pepcid 20 mg IV/PO Q24H Ceftazidime 2 g IV once (per recommendation of Dr. Rey). Will then decrease to 500 mg IV Q24H per recommended dosing guidelines; however, would like dayshift pharmacist to check wit h nephrology for dose preference and route preference (added to peritoneal fluid exchanges i nstead of IV). Pharmacy will continue to follow and adjust medications as needed. Bridgett RANDALL 12/25/2018 5:26 AM ATHConver patric Transaction, Provider Unknown - 12/25/2018 5:25 AM PST Pharmacy Note by Shelli Bustos RPH at 12/25/18524 Author: Shelli Bustos RPH Service: Pharmacy Author Type: Pharmacist Filed: 12/25/18524 Date of Service: 12/25/18524 Status: Signed Buyers' Agent: Shelli Bustos RPH (Pharmacist) Clinical Pharmacy Note: Vancomycin Day 1 Pharmacy dosing vancomycin for peritoneal dialysis Height: 157.5 cm Weight: 80.3 kg WBC: 14.91 Serum creatinine: 14.3 mg/dL (H) 12/25/18 0208 Estimated creatinine clearance: 5.1 mL/min (A) INDICATION: [...] Date of Service: 12/25/18 0301 Status: Signed Buyers' Agent: Nadege Gupta RN (Registered Nurse) Peritoneal fluid collected by PD Nurse from the PD cath and was sent to lab. onver patric Transaction, Provider Unknown - 12/24/2018 11:53 PM PST Nurse Progress Note by Nadege Gupta RN at 12/24/182352 Author: Nadege Gupta RN Service: (none) Author Type: Registered Nurse Filed: 12/24/182355 Date of Service: 12/24/182352 Status: Signed Buyers' Agent: Nadege Gupta RN (Registered Nurse) Called Dr. Rey regarding peritoneal dialysis tonight. Per MD, pt will not be dialyze iman ght and that he will evaluate the pt tomorrow. Will notify Dr. Martinez. docume nted in this encounter H&P Notes Jose Thomas MD - 12/24/2018 10:12 PM PST H&P by Jose Doran MD at 12/24/182 Author: Jose Doran MD Service: Hospitalist Author Type: Physician Filed: 12/25/18 184 Date of Service: 12/24/182211 Status: Signed Buyers' Agent: Jose Doran MD (Physician) Related Notes: Original Note by Jose Doran MD (Physician) filed at 12/25/18 2500 [facility] Service: Hospitalist Admission History & Physical Date of Admission: 12/24/2018 Requesting Physician: [facility], Emergency Department Reason for Admission: ? Peritoneal dialysis peritonitis History Obtained From: patient CHIEF COMPLAINT: Abdominal pain, nausea and vomiting HISTORY OF PRESENT ILLNESS The patient is 38 y.o. female with significant past medical history of end-stage renal dise ase on peritoneal dialysis, gastroesophageal reflux disease, hypertension, obesity who prese nts with abdominal pain, nausea and vomiting The patient is a 38-year-old female with a significant past medical history of end-stage re nal disease on peritoneal dialysis, GERD, hypertension, obesity who presents to the ED as a transfer from [facility] due to abdominal pain, nausea and vomiting. The patient was recently discharged from [facility] on 12/10/2018. For a full note, please see discharge worthy shanellery from the hospitalist. In summary, the patient was admitted for abdominal pain, dry he aving. Peritoneal dialysis catheter fluid was sent for analysis and show cell count more th an 100. Infectious Disease was involved in the patient's case and she was initially treated with Zosyn and then de-escalated as to cefoxitin and she was discharged on cefdinir and Fla gyl. The patient refers that she has been compliant with all of her management. She has be en continuing her peritoneal dialysis as scheduled with every 12 hours and in the last coupl e of days she started developing again severe abdominal discomfort 8/10 of intensity, locate d in the upper abdomen mainly in the left upper quadrant associated with severe nausea, dry heaving and vomiting, no more than 3 times daily, but positive for bile and gastric acid. D enies any episodes of hematemesis. Also, refers diarrhea, 2-3 bowel movements daily without any mucus or blood in the stool. Positive chills and subjective fever at home. Due to the se abnormalities, the patient decided to go to the emergency department in [place] who d ue to the patient's history, leukocytosis and bandemia, the case was discussed with our neph rologist, Dr. Rey who recommended transfer to [facility] for further management. At this poin t, the patient will be admitted under the hospitalist service for further treatment. REVIEW OF SYSTEMS Review of Systems Constitutional: Positive for chills, fatigue and fever. HENT: Negative for postnasal drip and rhinorrhea. Respiratory: Negative for apnea, cough, choking, shortness of breath and wheezing. Cardiovascular: Negative for chest pain, palpitations and leg swelling. Gastrointestinal: Positive for abdominal pain, diarrhea, nausea and vomiting. Negative for abdominal distention and blood in stool. Genitourinary: Negative for pelvic pain and urgency. Musculoskeletal: Positive for back pain and myalgias. Negative for arthralgias. Skin: Negative for color change. Neurological: Negative for dizziness, seizures and headaches. Psychiatric/Behavioral: Negative for agitation and confusion. Past Medical History Diagnosis Date Diverticulosis GERD (gastroesophageal reflux disease) Hypercalcemia 09/07/2017 Hyperphosphatemia 10/28/2015 Hypocalcemia 10/28/2015 Itching 10/28/2015 Metabolic acidosis 10/28/2015 Obesity Peritonitis associated with peritoneal dialysis (HCC) 01/24/2017 Uremia 10/28/2015 Past Surgical History Procedure Laterality Date ESOPHAGOGASTRODUODENOSCOPY N/A 09/10/2017 Procedure: ESOPHAGOGASTRODUODENOSCOPY; Surgeon: Beena Peters MD; Location: [facility]; Service: Gastroenterology; Laterality: N/A; PERITONEAL CATHETER INSERTION N/A 10/28/2015 Procedure: LAPAROSCOPIC - PERITONEAL DIALYSIS CATH INSERTION; Surgeon: Mundo Ramos MD; Lo cation: [facility]; Service: Vascular; Laterality: N/A; Immunizations: Influenza: Pneumoccocal: No Known Allergies Prescriptions Prior to Admission Medication Sig Dispense Refill Last Dose cefdinir (OMNICEF) 300 MG capsule Take 1 capsule by mouth daily. 9 capsule 0 Past Week clonazePAM (KLONOPIN) 0.5 MG tablet Take 0.25 mg by mouth daily as needed for Anxiety. 12/24/2018 gentamicin (GARAMYCIN) 0.1 % ointment Apply topically 3 (three) times daily. 15 g 1 metroNIDAZOLE (FLAGYL) 500 MG tablet Take 1 tablet by mouth every 12 (twelve) hours. 19 tablet 0 12/23/2018 ondansetron (ZOFRAN) 8 MG tablet Take 1 tablet by mouth every 8 (eight) hours as needed for Nausea. 30 tablet 11 12/24/2018 sevelamer (RENVELA) 800 MG tablet Take 2 tablets by mouth 3 (three) times daily with me als. 180 tablet 1 Past Week sevelamer (RENVELA) 800 MG tablet Take 800 mg by mouth 3 (three) times daily with meals . Past Week ALPRAZolam (XANAX) 0.5 MG tablet Take 0.5 mg by mouth nightly as needed for Sleep. Un known amLODIPine (NORVASC) 2.5 MG tablet Take 2.5 mg by mouth daily. Unknown ergocalciferol (DRISDOL) 26203 UNITS capsule Take 50,000 Units by mouth once a week. Unknown HYDROcodone-acetaminophen (NORCO) 5-325 MG per tablet Take 1 tablet by mouth every 4 (f our) hours as needed. (Patient not taking: Reported on 06/07/2018) 10 tablet 0 Unknown LORazepam (ATIVAN) 1 MG tablet Take 1 mg by mouth every 8 (eight) hours as needed for A nxiety. Unknown potassium chloride SA (K-DUR,KLOR-CON) 20 MEQ tablet Take 1 tablet by mouth daily. 30 t ablet 3 Unknown zolpidem (AMBIEN) 5 MG tablet Take 1 tablet by mouth nightly as needed for Sleep (march r epeat once in 1 hr if initial dose not effective). (Patient not taking: Reported on 8) 10 tablet 0 Not Taking at Unknown time Family History Problem Relation Age of Onset [...] on file Social History Narrative Lives [facility], no falls, full code PHYSICAL EXAM Vital Signs: BP 141/65 (BP Location: Left upper arm) | Pulse 74 | Temp 98.5 F (36.9 C) | Resp 20 | Ht 1.575 m (5' 2") | Wt 80.3 kg (177 lb 0.5 oz) | SpO2 98% | ? No | BMI 32.38 kg/m Physical Exam Constitutional: She is oriented to person, place, and time. She appears well-developed. HENT: Head: Normocephalic and atraumatic. Mouth/Throat: Mucous membranes are dry. Eyes: Pupils are equal, round, and reactive to light. EOM are normal. Neck: Neck supple. No JVD present. Cardiovascular: Normal rate, regular rhythm and normal heart sounds. Exam reveals no frict ion rub. No murmur heard. Pulmonary/Chest: Effort normal. No respiratory distress. She has no wheezes. She has no ral es. Abdomina/Gl: Soft. She exhibits no distension and no mass. There is tenderness in the epiga stric area and left upper quadrant. There is no guarding. Musculoskeletal: She exhibits no edema. Neurological: She is alert and oriented to person, place, and time. DATA Results No results found for the last 72 hours. Labs from [facility] shows white blood cell of 18.7, hemoglobin of 12.2, hematocr it of 36.8, platelet count of 475 with 5% bands. A glucose of 132, creatinine of 12.92. GF R of 3. Sodium of 134, potassium of 3, chloride of 92, calcium of 9.3, total protein of 7.7 , albumin of 3.7. LFTs within normal limits. Lipase normal at 24. HCG negative. PROBLEM LIST Principal Problem: Abdominal pain Active Problems: ESRD on peritoneal dialysis Peritonitis due to infected peritoneal dialysis catheter (HCC) ASSESSMENT & PLAN Impression patient is 38 y.o. female with significant past medical history of end-stage renal disease on peritoneal dialysis, gastroesophageal reflux disease, hypertension, obesity who presents with abdominal pain, nausea, vomiting and diarrhea for the last 2 days. Recently discharged from [facility] 12/10/2018 on cefdinir and flagyl for possible peritonitis from PD -12/07/18 CT abdomen and pelvis-and physical he complex and/or dense 4.5 cm mass arising fr om the right ovary or adnexa Assessment -Abdominal pain, nausea, and vomiting. Patient recently discharged from [facility] due to snehal rns for peritoneal dialysis peritonitis. Recent admission studies are suggestive for periton itis (150 total nucleated cells with 69 percent neutrophils) but Gram stain and cultures has remained negative. Will rule out again PD related peritonitis. -ESRD on PD -Hypertension -Gastroesophageal reflux disease Plan Admit to observation Nephrology, Dr. Rey, has been consulted prior to transfer to [facility] candy separator enrobing to obtain PD catheter fluid for further assessment UA, urine culture, blood cultures 2 MRSA by PCR Case discussed with Dr Rey who recommended 2 g Ceftazidime and 1 g of vancomycin after fl uid from PD catheter is taken by personnel monitor ? Benefit for intraperitoneal vancomycin Further antibiotic titration pending above results Pain management Antiemetic therapy Deep vein thrombosis GI prophylaxis CODE STATUS- DNR DNI - discussed with patient at bedside Disposition: Observation Code Status: Prior Primary Care Physician: JUAN F Doran MD 12/25/2018 docu mented in this encounter Procedure Notes Chago Rey MD - 12/27/2018 9:45 AM PST Procedures by Chago Rey MD at 12/27/18 0969 Author: Chago Rey MD Service: Nephrology Author Type: Physician Filed: 01/12/19 1432 Date of Service: 12/27/1881 Status: Addendum Buyers' Agent: Chago Rey MD (Physician) Related Notes: Original Note by BALJIT Guerrier (Nurse Practitioner) filed at 12/11 05/28 8139 Procedure Orders: 1. Peritoneal Dialysis (CAPD) [[id number]] ordered by Chago Rey MD at 12/25/18 0317 Hospital Problem List: Principal Problem: Abdominal pain Active Problems: ESRD on peritoneal dialysis Peritonitis due to infected peritoneal dialysis catheter (HCC) The patient says that she feels 'ok' today. she denies any chest pain, dyspnea . her urine output is noted. Admitted for Abdominal pain, nausea and vomiting UF over night: 600 The following portions of the patient's history were reviewed and updated as appropriate: l aboratory data, radiologic studies, allergies, current medications, and problem list. Scheduled Meds: aluminum-magnesium hydroxide-simethicone 30 mL Oral 4x Daily AC & HS amLODIPine 2.5 mg Oral Daily ergocalciferol 50,000 Units Oral Weekly famotidine 20 mg Oral Daily heparin (porcine) 5000 unit/0.5mL 5,000 Units Subcutaneous 2 times per day potassium chloride SA 20 mEq Oral Daily with breakfast sevelamer 1,600 mg Oral TID WC Continuous Infusions: cefTAZidime 1 g (12/27/18 9458) famotidine vancomycin PRN Meds:.acetaminophen OR acetaminophen, ALPRAZolam, HYDROcodone-acetaminophen, HYDROm orphone OR HYDROmorphone, jpujdzusp-yevspr-gavygdmcca, ondansetron OR ondansetron, p olyethylene glycol, simethicone, zolpidem BP 101/55 (BP Location: Right upper arm) | Pulse 88 | Temp 98.1 F (36.7 C) (Oral) | Resp 18 | Ht 1.575 m (5' 2") | Wt 81.3 kg (179 lb 3.7 oz) | SpO2 96% | ? No | BMI 32.78 kg/m General appearance: Pleasant, not in acute distress. Laying flat in bed, family in room. Lungs: Clear to auscultation. There are no wheezes. Heart: Regular rate and rhythm without any rub, gallop. no murmur. Abdominal exam: Soft and mild tenderness in lower quadrants, left more than right. Extremities: Warm to touch with no leg edema. There is no cyanosis or clubbing. Neurological: Awake, alert, and oriented to time, place, and person. Normal gross motor po wer. There is no asterixis. Access : PD cath in place, site is benign Lab Results Component Value Date BUN 27 (H) 12/27/2018 CREATININE 14.6 (H) 12/27/2018 EGFR 3 (L) 12/27/2018 NA 135 12/27/2018 K 3.2 (L) 12/27/2018 CL 97 (L) 12/27/2018 CO2 20 (L) 12/27/2018 CA 8.7 12/27/2018 PHOS 8.7 (H) 12/26/2018 MG 3.0 (H) 12/25/2018 ALB 3.9 12/26/2018 HGB 12.7 12/27/2018 I/O last 3 completed shifts: In: 72476 [P.O.:250; Other:21136] Out: 09590 [Emesis/NG output:200; Other:79013] Assessment: Ms. Oconnor is a 38 y.o. female patient with ESRD on PD. Admitted for Abdominal pain, nausea and vomiting Anemia of ESRD hypoalb hyperphos Recommendations: Daily PD Plan additional doses of vanco and ceftazidine today prior to d/c No acute EPO need Low phos diet stressed Reinforce phos binder use Protein supplements stressed Strict I/O and Daily Weights Encourage IS We discussed the case with the primary team at the time of this encounter. BALJIT Guerrier Addendum: I have seen & personally examined the pt with Demar SMILEY; I have discussed the c ase with him. I agree with his findings & documentation. BALJIT Guerrier started the documentation. Note, review of records, exam, recs, plan , discussions were completed & approved by myself. I have made changes to the above procedure note, where appropriate, and discussed the krystin nt and the changes with the author on 04/26. Chgao Rey MD koum, Chago Beck MD - 9:36 AM PST Procedures by Chago Rey MD at 12/26/18 0936 Author: Chago Rey MD Service: Nephrology Author Type: Physician Filed: 01/12/19 1431 Date of Service: 12/26/18 0936 Status: Addendum Buyers' Agent: Chago Rey MD (Physician) Related Notes: Original Note by Chago Rey MD (Physician) filed at 01/12/19 1430 Procedure Orders: 1. Peritoneal Dialysis (CAPD) [[id number]] ordered by Chago Rey MD at 12/25/18 0317 Hospital Problem List: Principal Problem: Abdominal pain Active Problems: ESRD on peritoneal dialysis Peritonitis due to infected peritoneal dialysis catheter (HCC) The patient says that she feels 'ok' today. she denies any chest pain, dyspnea . her urine output is noted. Admitted for Abdominal pain, nausea and vomiting UF over night: 895 The following portions of the patient's history were reviewed and updated as appropriate: l aboratory data, radiologic studies, allergies, current medications, and problem list. Scheduled Meds: amLODIPine 2.5 mg Oral Daily ergocalciferol 50,000 Units Oral Weekly famotidine 20 mg Oral Daily heparin (porcine) 5000 unit/0.5mL 5,000 Units Subcutaneous 2 times per day potassium chloride SA 20 mEq Oral Daily with breakfast sevelamer 1,600 mg Oral TID WC Continuous Infusions: cefTAZidime 1 g (12/26/18 0628) famotidine vancomycin PRN Meds:.acetaminophen OR acetaminophen, ALPRAZolam, HYDROcodone-acetaminophen, HYDROm orphone OR HYDROmorphone, ukyofrxym-pmuohh-lpzrjoklyc, ondansetron OR ondansetron, p olyethylene glycol, zolpidem BP (!) 86/49 (BP Location: Left upper arm) | Pulse 73 | Temp 98.2 F (36.8 C) (Oral) | Resp 14 | Ht 1.575 m (5' 2") | Wt 81.3 kg (179 lb 3.7 oz) | SpO2 100% | ? No | BMI 32.78 kg/m General appearance: Pleasant, not in acute distress. Laying in bed, family in room. Lungs: Clear to auscultation. There are no wheezes. Heart: Regular rate and rhythm without any rub, gallop. no murmur. Abdominal exam: Soft and mild tenderness in lower quadrants with normal bowel sounds. Extremities: Warm to touch with no leg edema. There is no cyanosis or clubbing. Neurological: Awake, alert, and oriented to time, place, and person. Normal gross motor po wer. There is no asterixis. Access : PD cath in place, site is benign Lab Results Component Value Date BUN 29 (H) 12/25/2018 CREATININE 14.3 (H) 12/25/2018 EGFR 3 (L) 12/25/2018 NA 138 12/25/2018 K 2.9 (L) 12/25/2018 CL 97 (L) 12/25/2018 CO2 27 12/25/2018 CA 8.0 (L) 12/25/2018 PHOS 6.1 (H) 12/08/2018 MG 3.0 (H) 12/25/2018 ALB 2.4 (L) 12/25/2018 HGB 10.3 (L) 12/25/2018 I/O last 3 completed shifts: In: 8243 [P.O.:200; Other:8043] Out: 8513 [Other:8513] Assessment: Ms. Oconnor is a 38 y.o. female patient with ESRD on PD. Admitted for Abdominal pain, nausea and vomiting Anemia of ESRD hypoalb hyperphos Recommendations: Daily PD No acute EPO need Protein supplements stressed Strict I/O and Daily Weights Encourage IS We discussed the case with the primary team at the time of this encounter. BALJIT Guerrier Addendum: I have seen & personally examined the pt with Demar SMILEY; I have discussed the c ase with him. I agree with his findings & documentation. BALJIT Guerrier started the documentation. Note, review of records, exam, recs, plan , discussions were completed & approved by myself. I have made changes to the above note, where appropriate, and discussed the content and the changes with the author on 12/26. Add: KCl suppl as ordered Low phos in diet stressed PD tomorrow Chago Rey MD documented in this enc ounter Consult Notes Tyler Kaye DO - 12/26/2018 2:45 PM PST Consult* by Tyler Kaye DO at 12/26/18 1445 Author: Tyler Kaye DO Service: Infectious Disease Author Type: Physician Filed: 12/26/18 1538 Date of Service: 12/26/18 1445 Status: Signed Buyers' Agent: Tyler Kaye DO (Physician) [facility] Service: Infectious Disease Initial Consult Note Date of Admission: 12/24/2018 Reason for Consultation: Recurrent peritonitis Requesting Physician: Kathy Edwards History Obtained From: patient, chart review CHIEF COMPLAINT: Abdominal pain HISTORY OF PRESENT ILLNESS The patient is 38 y.o. female with significant past medical history of end-stage renal dise ase on peritoneal dialysis, gastroesophageal reflux disease, diverticulosis, painful ovarian cyst, dialysis associated nausea and vomiting who presents with recurrent abdominal pain. I had seen this patient in September 2017 for an episode of abdominal pain which was ultimatel y attributed to an episode of gastritis after peritonitis was ruled out. More recently, the patient was seen by our service twice over the summer of 2018 for episodes of abdominal pain at which times laboratory analysis did not confirm a suspected diagnosis of peritonitis. Sh yanely was seen most recently in November by Dr. Deshpande for workup of culture-negative peritonit is, noting multiple prior workups with negative labs, and was treated with a course of oral Omnicef and metronidazole for 10 days. The patient returns to the hospital at this time with recurrent abdominal pain associated with nausea and vomiting. On this occasion, antibiotics were withheld at the outside facility and were withheld here until after a peritoneal fluid sample had been obtained. Following collection of cultures, the patient was started on ceft azidime and vancomycin. The patient reports that her abdominal pain had improved while taking her previous course o f Omnicef and Flagyl, but the symptoms started to return shortly after she finished the anti biotic. She also developed fevers and chills. She denies any change in the appearance of her dialysis fluid. She denies any pain redness or swelling around the dialysis catheter. She r eports that her symptoms are already improving since admission. REVIEW OF SYSTEMS Review of Systems Complete review of the constitutional, ENT, cardiovascular, respiratory, gastrointestinal, genitourinary, integumentary, musculoskeletal, psychiatric, neurologic, heme/lymphatic syste ms is entirely negative except as described above in the history of the present illness. Past Medical History Diagnosis Date Diverticulosis GERD (gastroesophageal reflux disease) Hypercalcemia 09/07/2017 Hyperphosphatemia 10/28/2015 Hypocalcemia 10/28/2015 Itching 10/28/2015 Metabolic acidosis 10/28/2015 Obesity Peritonitis associated with peritoneal dialysis (HCC) 01/24/2017 Uremia 10/28/2015 Past Surgical History Procedure Laterality Date ESOPHAGOGASTRODUODENOSCOPY N/A 09/10/2017 Procedure: ESOPHAGOGASTRODUODENOSCOPY; Surgeon: Beena Peters MD; Location: [facility]; Service: Gastroenterology; Laterality: N/A; PERITONEAL CATHETER INSERTION N/A 10/28/2015 Procedure: LAPAROSCOPIC - PERITONEAL DIALYSIS CATH INSERTION; Surgeon: Mundo Ramos MD; Lo cation: [facility]; Service: Vascular; Laterality: N/A; No Known Allergies Prescriptions Prior to Admission Medication Sig Dispense Refill Last Dose cefdinir (OMNICEF) 300 MG capsule Take 1 capsule by mouth daily. 9 capsule 0 Past Week clonazePAM (KLONOPIN) 0.5 MG tablet Take 0.25 mg by mouth daily as needed for Anxiety. 12/24/2018 gentamicin (GARAMYCIN) 0.1 % ointment Apply topically 3 (three) times daily. 15 g 1 metroNIDAZOLE (FLAGYL) 500 MG tablet Take 1 tablet by mouth every 12 (twelve) hours. 19 tablet 0 12/23/2018 ondansetron (ZOFRAN) 8 MG tablet Take 1 tablet by mouth every 8 (eight) hours as needed for Nausea. 30 tablet 11 12/24/2018 sevelamer (RENVELA) 800 MG tablet Take 2 tablets by mouth 3 (three) times daily with me als. 180 tablet 1 Past Week sevelamer (RENVELA) 800 MG tablet Take 800 mg by mouth 3 (three) times daily with meals . Past Week ALPRAZolam (XANAX) 0.5 MG tablet Take 0.5 mg by mouth nightly as needed for Sleep. Un known amLODIPine (NORVASC) 2.5 MG tablet Take 2.5 mg by mouth daily. Unknown ergocalciferol (DRISDOL) 39963 UNITS capsule Take 50,000 Units by mouth once a week. Unknown HYDROcodone-acetaminophen (NORCO) 5-325 MG per tablet Take 1 tablet by mouth every 4 (f our) hours as needed. (Patient not taking: Reported on 06/07/2018) 10 tablet 0 Unknown LORazepam (ATIVAN) 1 MG tablet Take 1 mg by mouth every 8 (eight) hours as needed for A nxiety. Unknown potassium chloride SA (K-DUR,KLOR-CON) 20 MEQ tablet Take 1 tablet by mouth daily. 30 t ablet 3 Unknown zolpidem (AMBIEN) 5 MG tablet Take 1 tablet by mouth nightly as needed for Sleep (march epeat once in 1 hr if initial dose not effective). (Patient not taking: Reported on 8) 10 tablet 0 Not Taking at Unknown time Scheduled Medications amLODIPine 2.5 mg Oral Daily ergocalciferol 50,000 Units Oral Weekly famotidine 20 mg Oral Daily heparin (porcine) 5000 unit/0.5mL 5,000 Units Subcutaneous 2 times per day potassium chloride SA 20 mEq Oral Daily with breakfast sevelamer 1,600 mg Oral TID WC Continuous Infusions cefTAZidime 1 g (12/26/18 0628) famotidine vancomycin PRN Medications acetaminophen OR acetaminophen, ALPRAZolam, HYDROcodone-acetaminophen, HYDROmorphone OR HYDROmorphone, pvxqlgwex-ppwdgj-ajpstumlow, ondansetron OR ondansetron, polyethylen e glycol, zolpidem Family History Problem Relation Age of Onset [...] on file Social History Narrative Lives in [facility], no falls, full code PHYSICAL EXAM Vital Signs: BP 102/51 (BP Location: Right upper arm) | Pulse 71 | Temp 98.2 F (36.8 C) (Oral) | Resp 14 | Ht 1.575 m (5' 2") | Wt 81.3 kg (179 lb 3.7 oz) | SpO2 97% | ? No | BMI 32.78 kg/m Temp (24hrs), Av.2 F (36.8 C), Min:97.9 F (36.6 C), Max:98.6 F (37 C) Physical Exam Constitutional: The patient is in no acute distress and appears stated age. Vital signs wer e reviewed as above Head: Normocephalic and atraumatic ENT: Mucous membranes are moist. There is no evidence of thrush. No pharyngeal exudates. Neck: Supple without thyromegaly or meningismus. Heart: Regular rate and rhythm without murmurs gallops or rubs Lungs: Clear to auscultation bilaterally without wheezes rales or rhonchi. Abdomen: Soft, minimal diffuse tenderness, bowel sounds are diminished. Dialysis catheter s ite unremarkable. Musculoskeletal: There is no gross deformity or active arthritis. Neuro: There are no gross deficits of motor or sensory function Skin: There are no rashes of clinical significance. There are no ulcerations or significant wounds. Extremities: There is no clubbing, cyanosis, or peripheral edema. Psychiatric: The patient attends the examiner without difficulty and affect is appropriate. DATA CBC: Lab Results Component Value Date WBC 12.25 (H) 12/26/2018 RBC 3.68 (L) 12/26/2018 HGB 10.9 (L) 12/26/2018 HCT 32.3 (L) 12/26/2018 MCV 87.6 12/26/2018 MCH 29.6 12/26/2018 MCHC 33.8 12/26/2018 RDW 48.1 12/26/2018 PLT 404 (H) 12/26/2018 MPV 7.7 12/26/2018 DIFFTYPE AUTOMATED 12/26/2018 CMP: Lab Results Component Value Date NA 141 12/26/2018 K 3.5 12/26/2018 CL 98 (L) 12/26/2018 CO2 23 12/26/2018 ANIONGAP 24 (H) 12/26/2018 GLUF 94 12/26/2018 BUN 22 12/26/2018 CREATININE 13.11 (H) 12/26/2018 BCR 2 12/25/2018 CA 8.3 (L) 12/26/2018 CA 9.0 09/07/2017 PROT 6.6 12/25/2018 ALB 3.9 12/26/2018 GLOB 4.2 12/25/2018 BILITOT 0.3 12/25/2018 ALP 76 12/25/2018 AST 16 12/25/2018 ALT 15 12/25/2018 EGFR 3 (L) 12/26/2018 Microbiology: Blood cultures negative 2 so far. Peritoneal fluid cell count is 109 with 9 2 percent neutrophils, culture pending. Medical imaging: CT scan of the abdomen and pelvis performed during the previous hospital s toma as follows: IMPRESSION: 1. The intrinsically complex and/or dense 4.5 [...] there is diverticulosis Signed by: Santos Gil Date/Time: 12/07/2018 4:56 PM Extensive medical record review: I have reviewed the patient's admission history and physic al as well as progress notes from the current hospital stay. Infectious disease progress not es from March and May 2018 as well as November 2018 has also been reviewed. Much of this infor mation is summarized above in history of present illness. PROBLEM LIST Principal Problem: Abdominal pain Active Problems: ESRD on peritoneal dialysis Peritonitis due to infected peritoneal dialysis catheter (HCC) ASSESSMENT & PLAN Patient Active Hospital Problem List: Abdominal pain / Peritonitis due to infected peritoneal dialysis catheter (06/04/2017) The patient has had a rapid relapse following a recent treatment course, which is suggest elizabeth of infection of the catheter itself. I am hoping that we will isolate a causative organi sm, as cultures have been collected prior to starting antibiotics. I would recommend a more potent intraperitoneal treatment for 14 days, with plan to remove the catheter if she subseq uently has another relapse. Selection of antibiotic will depend on cultures, or if negative, would favor continuing a combination of Fortaz and vancomycin. ESRD on peritoneal dialysis (06/04/2017) Antibiotics have been dosed accordingly. For discharge, I would defer to nephrology for o rdering of intraperitoneal therapy. Code Status: Full Code Primary Care Physician: JUAN F WHITLEY Thank you for allowing me to participate in the care of this patient. I will continue to follow with you. TYLER KAYE DO 12/26/2018 koum, Chago Beck MD - 1:12 PM PST Consults by Chago Rey MD at 12/25/18 1312 Author: Chago Rey MD Service: Nephrology Author Type: Physician Filed: 01/12/19 1428 Date of Service: 12/25/18 1312 Status: Signed Buyers' Agent: Chago Rey MD (Physician) Consult Orders: 1. Consult to Nephrology [[id number]] ordered by Jose Doran MD at 12/25/18 0052 Hospital Problem List: Principal Problem: Abdominal pain Active Problems: ESRD on peritoneal dialysis Peritonitis due to infected peritoneal dialysis catheter (HCC) I was asked by the primary team to see Ms. Ocononr in consult today. As the admitting/consu lting team is familiar with her case, I will not state her past history in detail. Briefly, she is a 38 y.o. female patient with history as delineated in the Past Medical & Surgical Hi story sections. She was admitted with possible PD associated peritonitis. I was called in to evaluate her for opinion on urgent dialysis need. She presented with recurrent abd pain, N/V. On-off for a few days, worse yesterday. No terrence temesis. +ve abd pain, diffuse, episodic, crampy +ve diarrhea associated No cloudy PD fluid; no PD site discharge. No PD cath malfunction. Altus warm; no measured temp; chilliness but no chills History & ROS obtained from : patient, chart review. The patient has history of ESRD, PD. S he says that she feels 'poor' today. No history of blurred vision tinnitus, headache, or co ugh. No melena, or hematochezia. No chest pain, palpitation, dizziness, loss of consciousn ess, orthopnea, paroxysmal nocturnal dyspnea, or leg edema. No dysuria, incontinence, or sy mptoms of UTI. The following portions of the [...] systems were reviewed and were otherwise negative. aluminum-magnesium hydroxide-simethicone 30 mL Oral 4x Daily AC & HS amLODIPine 2.5 mg Oral Daily ergocalciferol 50,000 Units Oral Weekly famotidine 20 mg Oral Daily heparin (porcine) 5000 unit/0.5mL 5,000 Units Subcutaneous 2 times per day potassium chloride SA 20 mEq Oral Daily with breakfast sevelamer 1,600 mg Oral TID WC cefTAZidime 1 g (12/26/18 0628) famotidine vancomycin I/O last 3 completed shifts: In: 8243 [P.O.:200; Other:8043] Out: 8513 [Other:8513] I/O this shift: In: 11292 [Other:72137] Out: 24099 [Other:89960] P.E. BP 102/51 (BP Location: Right upper arm) | Pulse 71 | Temp 98 F (36.7 C) (Oral) | Re sp 18 | Ht 1.575 m (5' 2") | Wt 81.3 kg (179 lb 3.7 oz) | SpO2 97% | ? No | BMI 32.78 kg/m General appearance: Pleasant, [...] rub, gallop. No murmur. Abdominal exam: Soft but with moderate tenderness in lower quadrants to direct P; no rebou nd. Musculoskeletal: No costovertebral angle tenderness bilaterally. Extremities: [...] normal. Lab Results Component Value Date BUN 22 12/26/2018 CREATININE 13.11 (H) 12/26/2018 EGFR 3 (L) 12/26/2018 NA 141 12/26/2018 K 3.5 12/26/2018 CL 98 (L) 12/26/2018 CO2 23 12/26/2018 CA 8.3 (L) 12/26/2018 PHOS 8.7 (H) 12/26/2018 MG 3.0 (H) 12/25/2018 ALB 3.9 12/26/2018 HGB 10.9 (L) 12/26/2018 Assessment/Recommendations: Ms. Oconnor is a 38 y.o. female patient with ESRD, PD. PD associated peritonitis is being treated; r/o a resistant microbe. r/o gastroparesis; r/o gastroenteritis Presented with: abd pain & N/V Admitted with: possible PD associated peritonitis VOLUME: EABV is ok No IVF need No diuresis as ineffective There is no acute UF indication Given her tendency for anasarca: Encourage adequate intake & close dietitian F/U. Encourage ambulation safely. Encourage the adequate use of an incentive spirometer. 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 No need for renal U/S Dose all of her meds to her current daily PD. Continue to avoid all kinds of nephrotoxins. Target euvolumia with a MAP>75 mmHg as possible. BLOOD PRESSURE: controlled Gentle UF is planned to avoid hypotension Vasoactive meds as ordered Monitor BP closely & frequently ELECTROLYTES: abnormal. 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 But will plan it for tonight Sodium: ok Potassium: on the low side Calcium: mildly low Magnesium: mildly up Phosphorus: severely high Acid/Base: ok Reinforce lytes protocol ALBUMIN: No significant hypoalbuminemia at this time Prot suppl stressed ANEMIA: mild Associated with ESRD At this time, no need to send Ferritin, iron panel No acute ANGELA need URINALYSIS: She makes no urine OTHER: F/U: Also seen and examined during dialysis. Tolerating it well. Access: no issues. UF: gentle as tolerated. Next dialysis: daily PD. I discussed today with Ms. Oconnor the meaning of her presenting sxs and the interaction of that with her PD. I discussed with the primary team the case at the time of this encounter. I spent 70 total minutes today in interviewing & examining the patient, reviewing & updatin g the patient's chart, formulating a plan, in addition to patient education and discussions with the primary/consulting team. Thank you Carol Martinez & Jerry for the opportunity to see this patient in consult today. Angela hughes do not hesitate to call me at any time with questions or concerns. CHAGO REY MD documented in this enc ounter Miscellaneous Notes Plan of Care - Conversion Transaction, Provider Unknown - 12/26/2018 7:55 PM PST Plan of Care by Maryse Khan RN at 12/26/181954 Author: Maryse Khan RN Service: (none) Author Type: Registered Nurse Filed: 12/27/18 0355 Date of Service: 12/26/181954 Status: Addendum Buyers' Agent: Maryse Khan RN (Registered Nurse) Related Notes: Original Note by Maryse Khan RN (Registered Nurse) filed at 12/27/18 035 5 Problem: Pain Goal: Patient's pain/discomfort is manageable Assess and monitor patient's pain using appropriate pain scale. Collaborate with interdisci plinary team and initiate plan and interventions as ordered. Re-assess patient's pain level approximately 1-2 hours after pain management intervention. Premedicate as needed. Outcome: Progressing Pt reports pain is improving after pain medication administration. Pain management options reviewed and pt encouraged to notify nursing staff if pain worsens and additional treatment is needed; pt agreeable. Will continue to monitor pain level and treat appropriately. Problem: Safety Goal: Patient will be injury free during hospitalization Assess and monitor vitals signs, neurological status including level of consciousness and o rientation. Assess patient's risk for falls and implement fall prevention plan of care and i nterventions per hospital policy. Ensure arm band on, uncluttered walking paths in room, sameera quate room lighting, call light and overbed table within reach, bed in low position, wheels locked, side rails up per policy, and non-skid footwear provided. Outcome: Progressing ID band on, nonskid socks on, call light use reviewed and within reach. Encouraged pt to ca ll nursing staff when assistance is needed; pt agreeable. Problem: Psychosocial Needs Goal: Demonstrates ability to cope with hospitalization/illness Assess and monitor patients ability to cope with his/her illness. Outcome: Progressing Plan of care discussed and expression of feelings encouraged. Pt denies concerns at this ti me. Mother at bedside providing support. Problem: Infection Goal: Signs and symptoms of infections are decreased or avoided Assess and monitor patient for signs and symptoms of infection such as redness, warmth, dis charge, and increased body temperature. Monitor and report abnormal lab values (ex-CBC and d iff, serum protein, serum albumin, and cultures). Wash hands properly before and after each patient care activity. Utilize standard precautions and use personal protective equipment ( PPE) as indicated. Ensure aseptic care of all intravenous lines and invasive tubes/drains. O btain immunization and exposure to communicable diseases history. Collaborate with interdisc iplinary team and initiate plan and interventions as ordered. Outcome: Progressing Will continue to adminster IV antibiotics as ordered. ID following pt. Will continue to mon itor for signs/symptoms of worsening infection. AM labs ordered. lan o f Care - Conversion Transaction, Provider Unknown - 12/26/2018 10:48 AM PSTFormatting of thi s note might be different from the original. Plan of Care by Phillip Gonzalez RN at 12/26/181047 Author: Phillip Gonzalez RN Service: (none) Author Type: Registered Nurse Filed: 12/26/181047 Date of Service: 12/26/181047 Status: Signed Buyers' Agent: Phillip Gonzalez RN (Registered Nurse) Problem: Safety Goal: Patient will be injury [...] policy, and non-skid footwear provided. Outcome: Progressing Pt. Remains injury free during their stay at hospital, Room is free from clutter with walkw ays clear, bed in lowest position with wheels locked, 2/4 side rails are up, call light and over bed table are within reach. Phillip Gonzalez RN Problem: Daily Care Goal: Daily care needs are met Assess and monitor ability to perform self care and identify potential discharge needs. Outcome: Progressing Pt maintains independence with ADLs. Phillip Gonzalez RN lan o f Care - Conversion Transaction, Provider Unknown - 12/25/2018 11:29 PM PSTFormatting of thi s note might be different from the original. Plan of Care by Ag Flores RN at 12/25/182328 Author: Ag Flores RN Service: (none) Author Type: Registered Nurse Filed: 12/25/182328 Date of Service: 12/25/182328 Status: Signed Buyers' Agent: Ag Flores RN (Registered Nurse) Problem: Pain Goal: Patient's pain/discomfort is manageable Assess and monitor patient's pain using appropriate pain scale. Collaborate with interdisci plinary team and initiate plan and interventions as ordered. Re-assess patient's pain level approximately 1-2 hours after pain management intervention. Premedicate as needed. Outcome: Progressing Pt pain is managed with PRN meds and rest. lan o f Care - Conversion Transaction, Provider Unknown - 12/25/2018 10:50 AM PSTFormatting of thi s note might be different from the original. Plan of Care by Liza Santana RN at 12/25/18 105 Author: Liza Santana RN Service: (none) Author Type: Registered Nurse Filed: 12/25/18 1054 Date of Service: 12/25/181049 Status: Signed Buyers' Agent: Liza Santana RN (Registered Nurse) Problem: Pain Goal: Patient's pain/discomfort is manageable Assess and monitor patient's pain using appropriate pain scale. Collaborate with interdisci plinary team and initiate plan and interventions as ordered. Re-assess patient's pain level approximately 1-2 hours after pain management intervention. Premedicate as needed. Outcome: Progressing Patient continuing to have pain to upper abdomen, medicated per JAN. Pt offered warm blanke t, declined. Problem: Safety Goal: Patient will be injury [...] and non-skid footwear provided. Outcome: Progressing Patient oriented to use call light for assistance. Bed in lowest position, side rails up x 2, non-skid socks on, floor cleared of clutter, IV saline locked, ID/code band in place. Problem: Psychosocial Needs Goal: Demonstrates ability to cope with hospitalization/illness Assess and monitor patients ability to cope with his/her illness. Outcome: Progressing Patient and family updated on plan of care. Bed requested for inpatient floor, pt aware on wait at this time. Pt's mom at the bedside for support. lan o f Care - Conversion Transaction, Provider Unknown - 12/25/2018 12:20 AM PSTFormatting of thi s note might be different from the original. Plan of Care by Nadege Gupta RN at 12/25/1819 Author: Nadege Gupta RN Service: (none) Author Type: Registered Nurse Filed: 12/25/1819 Date of Service: 12/25/1819 Status: Signed Buyers' Agent: Nadege Gupta RN (Registered Nurse) Problem: Pain [...] will be assisted with ADLs as needed. docume nted in this encounter Plan of [...] | | | | | [place] [address] | | | | + + + [...] | | | Random | [place] [facility] | | [place] | | | | [address];[place], [place] | | | | | | [address] | | | | + + + [...] | | | | | performed at [facility], [address] | | | | | | [address], | | | | | | [place] [address] | | | | + + + [...] + +---------+ + + External Lab: BLAINE (12/26/2018 8:13 AM PST) + + + [...] | | | Basophils | performed at [facility] | [address] | LAB | | | | [address];[place] | | | | | | [address] | | | | + + + [...] + + | Historically converted procedure from [employer] Epic environment | EXTERNAL LAB | + [...] | | | Random | performed at [facility];[address] | | LAB | | | | [address];[place], [place] | | | | | | [address] | | | | + + + [...] | | | | | performed at [facility];[address] | | | | | | [address];[place], [place] | | | | | | [address] | | | | + + + [...] | | CLEAR RBC'S | | | <94443 TOTAL NUCLEATED CELLS | | | 109 NEUTROPHILS | | | 92 LYMPHOCYTES 5 | | | MONOCYTES/MACROPHAGES 3 | | | CELLS COUNTED 100 Testing | | | performed at [facility];[address] [place] [address];[place] [address] | | + + + + +---------+ [...] at | | | | | | [facility], [address] | | | | | | [place] | | | | | | [address] | | | | + + + [...] | | | | | [place] [address] | | | | + + + [...] | | | | | performed at [facility], [address] | | | | | | [facility], | | | | | | [place] [address] | | | | + + + [...] NEGATIVE Testing | | | performed at [facility] [facility];[place] [address] | | + + + + +---------+ [...]
--- OUTSIDE RECORDS SUMMARY | ~2020-05-11 | XMS | Encounter Summary ---
Demographics + + + | Address | [address] | | | [place] [address] | + + + | Home Phone | | + + + | Preferred Language | Unknown | + + + | Marital Status | | + + + | Baptist Affiliation | Unknown | + + + | Race | Unknown | + + + | Ethnic Group | Unknown | + + + Author + + + | Author | [facility] | | | and [place] | + + + | Organization | [facility] | | | and [place] | + + + | Address | Unknown | + + + | Phone | Unavailable | + + + Support + + + + + | Name | Relationship | Address | Phone | + + + + + | Lyubov Smalls | ECON | [place], [place] | | | | | [address] | | + + + + + | Lydia Palm | ECON | [place], [place] | | | | | [address] | | + + + + + | melinda METZ" | ECON | [place], [place] | | | [place] | | [address] | | + + + + + | Jose C Oconnor | ECON | [place] | | | | | [place] | | | | | [address] | | + + + + + Care Team Providers + +------+ + | Care Estimating Engineer Name | Role | Phone | + +------+ + | Juan F Whitley DO | PCP | | + +------+ + Encounter Details +--------+ + + + + | Date | Type | Department | Care Team | Description | +--------+ + + + + | 04/22/ | Orders Only | [facility] | Man Jeronimo, | | | 2018 | | VASCULAR SURGERY | PA-C [address] | | | | | [address]TR[address] | [address], | | | | | [place] | [place] [address] | | | | | [place] | [phone] | | | | | [address] | | | | | | [phone] | | | +--------+ + + + [...] | + +--------+ + + + | [facility] | Routin | 04/22/2019 | | Results for this | | GRAFT FISTULA | e | 10:54 AM | | procedure are in the | | | | PDT | | results section. | + +--------+ + + + documented in this encounter Results [facility] Graft Fistula (04/22/2019 10:54 AM PDT) + + | Specimen | + + | | + + + + + | Impressions | Performed At | + + + | Subacute thrombus throughout the brachial basilic fistula with | | | minimal flow distal to the anastomosis. Signed by: Daphney Dumont, | | | Slade Sign Date/Time: 04/23/2019 9:00 AM | | + + + + + + | Narrative | Performed At | + + + | [facility] ACCESS DUPLEX-COMPLICATIONS CLINICAL INFORMATION: | | | Left Brachiobasilic evaluation COMPARISON: CT NEEDLE BIOPSY KIDNEY | | | (10/26/2015); US KIDNEYS AND BLADDER (10/25/2015); PROCEDURE: | | | Grayscale, color Doppler and Doppler with duplex imaging with | | | attention to the left upper extremity. FINDINGS: Subclavian vein: | | | PSV: 30 cm/sec Brachial artery: PSV: 72 cm/sec. Volume flow: 76 | | | cc/min. Diameter: 4.6 mm. Anastomosis: PSV: 118 cm/sec. Diameter: | | | 4.0 mm. Depth 7.7 mm. Basilic vein: Distal humerus: PSV: 12 | | | cm/sec. Volume flow: 64 cc/min: Diameter: 3.9 mm. Depth 5.5 mm. | | | Proximal humerus: PSV: 0 cm/sec. Volume flow: 0 cc/min: Diameter: | | | 3.8 mm. Depth 12.9 cm Subacute thrombus throughout the brachial | | | basilic fistula with minimal flow distal to the anastomosis. | | + + + + + | Procedure Note | + + | Endy, Rad Conversion - 07/01/2019 2:07 PM PDT [facility] ACCESS | | DUPLEX-COMPLICATIONSCLINICAL INFORMATION:Left Brachiobasilic evaluationCOMPARISON:CT | | NEEDLE BIOPSY KIDNEY (10/26/2015); US KIDNEYS AND | | BLADDER(10/25/2015);PROCEDURE:Grayscale, color Doppler and Doppler with duplex imaging | | with attentionto the left upper extremity.FINDINGS:Subclavian vein: PSV: 30 | | cm/secBrachial artery: PSV: 72 cm/sec. Volume flow: 76 cc/min. Diameter: | | 4.6mm.Anastomosis: PSV: 118 cm/sec. Diameter: 4.0 mm. Depth 7.7 mm.Basilic vein:Distal | | humerus: PSV: 12 cm/sec. Volume flow: 64 cc/min: Diameter: 3.9mm. Depth 5.5 | | mm.Proximal humerus: PSV: 0 cm/sec. Volume flow: 0 cc/min: Diameter: 3.8mm. Depth 12.9 | | cmSubacute thrombus throughout the brachial basilic fistula with minimalflow distal to | | the anastomosis.IMPRESSION: Subacute thrombus throughout the brachial basilic fistula | | with minimalflow distal to the anastomosis.Signed by: Daphney Dumont ChetSign Date/Time: | | 04/23/2019 9:00 AM | |Anastomosis: PSV: 118 cm/sec. Diameter: 4.0 mm. Depth 7.7 mm. | |Basilic vein: | |Distal humerus: PSV: 12 cm/sec. Volume flow: 64 cc/min: Diameter: 3.9 | |mm. Depth 5.5 mm. | |Proximal humerus: PSV: 0 cm/sec. Volume flow: 0 cc/min: Diameter: 3.8 | |mm. Depth 12.9 cm | |Subacute thrombus throughout the brachial basilic fistula with minimal | |flow distal to the anastomosis. | |IMPRESSION: | |Subacute thrombus throughout the brachial basilic fistula with minimal | |flow distal to the anastomosis. | |Signed by: Daphney Dumont Chet | |Sign Date/Time: 04/23/2019 9:00 AM | + + documented in this encounter Visit Diagnoses Not on filedocumented in this encounter
--- OUTSIDE RECORDS SUMMARY | ~2020-05-11 | XMS | Encounter Summary ---
Demographics + + + | Address | [address] | | | [place] [address] | + + + | Home Phone | | + + + | Preferred Language | Unknown | + + + | Marital Status | | + + + | Tenriism Affiliation | Unknown | + + + | Race | Unknown | + + + | Ethnic Group | Unknown | + + + Author + + + | Author | [facility] | | | and [place] | + + + | Organization | [facility] | | | and [place] | + + + | Address | Unknown | + + + | Phone | Unavailable | + + + Support + + + + + | Name | Relationship | Address | Phone | + + + + + | Lyubov Smalls | ECON | [place], [place] | | | | | [address] | | + + + + + | Lydia Palm | ECON | [place], [place] | | | | | [address] | | + + + + + | melinda METZ" | ECON | [place], [place] | | | [place] | | [address] | | + + + + + | Jose C Oconnor | ECON | [place] | | | | | [place] | | | | | [address] | | + + + + + Care Team Providers + +------+ + | Care Surgical Device Sales Representative Name | Role | Phone | + +------+ + | Unknown, Physician | PCP | | + +------+ + Reason for Visit + +--------+ + | Reason | Onset | Comments | | | Date | | + +--------+ + | Surgery Appointment | 01/03/ | | | | 2020 | | + +--------+ + Encounter Details +--------+ + + + + | Date | Type | Department | Care Team | Description | +--------+ + + + + | 01/03/ | Telephone | [facility] | Samira iDxon, | Surgery Appointment | | 2020 | | VASCULAR SURGERY | RN | | | | | [address] | | | | | | [place], [place] | | | | | | [address] | | | | | | [phone] | | | +--------+ + + + [...] Telephone Encounter - Samira Dixon RN - 01/03/2020 8:[address] Ramos stating there is an inpatient urgent case needed to add on for tomorrow 01/04/20 and Latonya ny needs to be rescheduled. Called patient, no answer, left voicemail.Electronically signed by Samira Dixon RN at 0 01/03/2020 8:30 AM PSTdocumented in this encounter Plan of Treatment Not on filedocumented as of this encounter Visit Diagnoses Not on filedocumented in this encounter
--- OUTSIDE RECORDS SUMMARY | ~2020-05-11 | XMS | Encounter Summary ---
Demographics + + + | Address | [address] | | | [place] [address] | + + + | Home Phone | | + + + | Preferred Language | Unknown | + + + | Marital Status | | + + + | Orthodoxy Affiliation | Unknown | + + + | Race | Unknown | + + + | Ethnic Group | Unknown | + + + Author + + + | Author | [facility] | | | and [place] | + + + | Organization | [facility] | | | and [place] | + + + | Address | Unknown | + + + | Phone | Unavailable | + + + Support + + + + + | Name | Relationship | Address | Phone | + + + + + | Lyubov Smalls | ECON | [place], [place] | | | | | [phone] | | + + + + + | Lydia Palm | ECON | [place], [place] | | | | | [phone] | | + + + + + | melinda METZ" | ECON | [place], [place] | | | reba | | [phone] | | + + + + + | Jose C Reeves | ECON | [place] | | | | | [place] | | | | | [address] | | + + + + + Care Team Providers + +------+ + | Care Coater Operator Insulation Board Name | Role | Phone | + +------+ + | No, Physician | PCP | Unavailable | + +------+ + Reason for Visit + + + | Reason | Comments | + + + | Arm Pain | report from Dr. Pederson's office. See note. friday was last | | | dialysis, reprots swelling to left arm | + + + Auth/Cert +--------+--------+ + [...] | | | | | | | (HCC) | | | | | | | [...] Description | +--------+---------+ + + + | 09/03/ | Surgery | [facility] | Mundo Ramos MD | Resection of left | | 2019 | | [facility] | [address] | arm AV graft with | | | | OPER[address] | [address], [place] | wound vac placement | | | | [address] | [address] | | | | | [place], [place] | [phone] | | | | | [address] | | | | | | [phone] | | | +--------+---------+ + + + [...] + + + | Blood Pressure | 113/62 | 09/03/2019 3:25 PM | | | | | PDT | | + + + + + | Pulse | 75 | 09/03/2019 3:25 PM | | | | | PDT | | + + + + + | Temperature | 37.6 C (99.6 F) | 09/03/2019 3:25 PM | | | | | PDT | | + + + + + | Respiratory Rate | 16 | 09/03/2019 3:25 PM | | | | | PDT | | + + + + + | Oxygen Saturation | 99% | 09/03/2019 3:25 PM | | | | | PDT | | + + + + + | Inhaled Oxygen | - | - | | | Concentration | | | | + + + + + | Weight | 87.7 kg (193 lb 5.5 | 09/03/2019 12:05 PM | | | | oz) | PDT | | + + + + + | Height | - | - | | + + + + + | Body Mass Index | 32.94 | 09/05/2019 7:00 AM | | | | | PDT [...] documented as of this encounter Discharge Summaries Herberth Escoto MD - 09/08/2019 12:39 PM PDTFormatting of this note might be different f rom the original. [facility] Service: Hospitalist Discharge Summary Date of Admission: 09/03/2019 Date of Discharge: 09/08/2019 Discharge Provider: Herberth Escoto MD Consulting Provider: Dr Marroquin - ALEJANDRO, Dr Ramos - Vascular Surgery Discharge Diagnoses: Principal Problem: Infected prosthetic vascular graft, initial encounter ESRD BRIEF HISTORY OF PRESENTATION: Ramona Reeves is a 39 y.o. female with ESRD, HTN, who was admitted for infec medina AV graft in the [facility], who had inititally had L arm AV graft using bovine carotid artery J une 2018, course complicated by wound dehiscence, underwent wound washout and wound vac placement 05/26/19, Taken back to OR 07/08/19 due to graft being exposed for another washout and replacement of wound vac, which was eventually removed. Patient was seen in [facility] 08/24/19 for wound check and graft was found to be exposed in wound. She was s cheduled jose taken back to OR however pt was admitted on 08/26/19 emergently transferred fr om outside facility for severe bleeding from L axilla. She went to the OR on 09/03/[address] Ramos for the following procedures: Left axilla exploration Left arm basilic vein harvest Removal of infected graft from axillary artery and vein Patch repair of left axillary artery us ing basilic vein for patch Primary repair of left axillary vein Washout of axilla with antibiotic solut ion Counter incision and removal of infecte d graft from left upper arm Wound vac placement of axilla and count er Wound culture revealed E faecalis. Blood cultures NGTD. Plan is to discharge with IV abx o n HD from 09/03-10/01,awaiting for this to be arranged The patient is symptomatically improved and medically stable on discharge. Patient is give n information on new medication side effects. Questions answered. Patient and family in agr eement with discharge plans. Advised to follow up closely with PCP for post hospitalization follow up as well as specialists seen this admission if indicated below or as discussed. DISCHARGE EXAM Vital Signs: BP 142/82 | Pulse 77 | Temp 37.3 C (99.1 F) (Oral) | Resp 16 | Ht 1.575 m (5' 2") | Wt 81.7 kg (180 lb 1.9 oz) | LMP 08/10/2019 | SpO2 99% | ? No | BMI 32.94 kg/m Constitutional: Alert and oriented to person, place, and time. Appears chronically ill HEENT: Neck supple, no JVD, non icteric sclera. Cardiovascular: Normal rate, regular rhythm, no murmur Pulmonary/Chest: Effort normal and breath sounds normal. No stridor. No respiratory distres s. no wheezes. no rales. Abdominal: Soft. Bowel sounds are normal. No distension.There is no tenderness. Extremeties/Musculoskeletal: Dressing in LUE Neurological: Alert and oriented to person, place, and time. Skin: Skin is warm. No diaphoresis. Psychiatric: Has normal mood and affect. Disposition: home Condition: stable and improved Code Status: Full Code Follow up: Linden Alonzo MD [address] [facility] [id number] Cathie Marroquin MD [address] [facility] [id number] In 2 weeks [facility] VASCULAR SURGERY [address] [facility] [id number] In 1 week Discharge Medications New Medications Details oxyCODONE 5 mg tablet Take 0.5-2 tablets by mouth every 8 hours as needed (severe pain). aka: ROXICODONE senna 8.6 mg tablet Take 1 tablet by mouth Twice daily as needed for Constipation. aka: SENOKOT vancomycin IVPB 1 g Inject 1 g into the vein Three times a week for 25 days. Give after each HD session Indic ations: Skin and Soft Tissue Abscess Changed Medications Details sevelamer carbonate 800 mg tablet Take 2 tablets by mouth 2 times daily (with breakfast & lunch). What changed: What Changed: Instructions aka: RENVELA sevelamer carbonate 800 mg tablet Take 3 tablets by mouth Daily (with dinner). What changed: You were already taking a medication with the same name, and this prescripti on was added. Make sure you understand how and when to take each. aka: RENVELA Unchanged Medications Details omeprazole 20 mg capsule Take 20 mg by mouth every morning (before breakfast). aka: priLOSEC ondansetron 4 mg tablet Take 4 mg by mouth every 6 hours as needed. aka: ZOFRAN promethazine 25 mg tablet Take 25 mg by mouth every 6 (six) hours as needed for Nausea. aka: PHENERGAN Discontinued Medications clindamycin 300 MG capsule aka: CLEOCIN Discharge took >30 minutes, to include final examination, discussion of admission, and prep aration of prescriptions, instructions for on-going care, follow-up and documentation of dis charge summary. Portions of this chart may have been created with voice recognition software. Occasional wr nehemiah-word or "sound-alike" substitutions may have occurred, even after review, due to the inh erent limitations of voice recognition software. Please read the chart carefully and recogni ze, using context, where these substitutions have occurred. Personal communication is kamar haney for any clarifications. Herberth Escoto MD 09/08/2019 documented in this encounter Medications at Time [...] + + + +---------+ + + | vancomycin IVPB 1 | Inject 1 g into the | 8 each | 0 | 09/06/20 | | | gIndications: SKIN | vein Three times a | | | 19 | 9 | | AND SOFT TISSUE | week for 25 days. | | | | | | ABSCESS | Give after each HD | | | | | | | session | | | | | | | Indications: Skin | | | | | | | and Soft Tissue | | | | | | | Abscess | | | | | + + + +---------+ + + documented as of this encounter Progress Notes Fartun Harris RN - 09/08/2019 3:16 PM PDTDischarge teaching done, instructions given. Pt states understanding. Medications discussed, no questions or concerns. Pt instructed to con candelaria MONCADA with any concerns or if signs/symptoms re-occur that were associated with this hospi talization. Fartun Harris RN 09/08/2019 15:16 Florentino Granados RN - 09/08/2019 1:03 PM PDTCare Management Final Discharge Plan Readmission Risk: Medium Discharge Plan Planned Disposition: Home or Self Care Planned Destination: home PCP: No Physician on file Patient/Family Notified: yes Transportation will be provided by: Transportation Date/Time: 09/08/19 1300 Ride Contact: Name: ROSALBA Palumbo Community Support Services Current Outpt/Agency/Support Groups: outpatient hemodialysis (specify) Equipment Durable Medical Equipment Provider: Home Equipment at Discharge: Equipment Used at Home: none Pharmacy Pharmacy/Medication needs: other (see comments)([facility] in [place]) Notes: Pt ready for discharge, family to transfer, gas voucher given to Pt family for manuel haskins in transportation needs. Pt has appointment for tomorrow with [facility] wound care center at 1430. Pt will see dialysis on Friday to restart and get IV ABX. Electronically signed: Florentino Faye RN 09/08/2019 13:03 Nisha Lucio RN - 09/08/2019 10:51 AM [facility] Wound/Ostomy Care Progress Note Patient has upcoming discharged plan. Current plan of care is to have NPWT dressing changed tomorrow at [facility]. This is within the 72 hour time frame. To help minimize pain and maximize healing potential with wound VAC dressing will not be changed today. Patient has H omeVAC in room that will be used when traveling. Versatel given to patient for next dressing change. Two canisters for ActiVAC given. Hospit al VAC D/muna in I. Nisha Weston RN 10:53 09/08/19 Eliazar Renee Pharm D - 09/08/2019 10:30 AM PDTVancomycin Monitoring Day 6 Serum creatinine: 10 mg/dL (H) 09/08/19 0447 Estimated creatinine clearance: 7 mL/min (A) WBC = 8.38 K/uL Dialysis today. Plan per protocol: Vancomycin 1000 mg IV once during last hour or immediately following each hemodialysis sess ion Per ID, will need at least 4 weeks of antibiotics 09/08/2019 10:22 Pharmacist: ELIAZAR HUMPHRIES PharmD Linden Kincaid MD - 09/08/2019 9:40 AM PDT [facility] Service: NEPHROLOGY Progress Note Ramona Reeves 39 y.o. [id number] female No Physician on file Hospital Day: LOS: 5 days 39 y.o.female admitted with infected Left arm AVG S/P Nephrology consulted for evaluation and management of ESRD ONSET Chronic severity severe Associated with fluid electrolyte acid base imbalances Assess need for hd/uf Seen and examined Tolerated hd/uf well this am Feels fine, eating well no cp, sob, n , v, d, fever, h/a Past Medical History: Diagnosis Date Acid reflux [...] normal sized kidneys. 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) Hypercalcemia 09/07/2017 Hyperphosphatemia [...] - REMOVAL; Surgeon: Qasim Pederson MD; Location: [facility] ; Service: Vascular; Laterality: N/A; Infected PD catheter removal DEBRIDEMENT Left 07/08/2019 Procedure: LEFT AXILLA WOUND DEBRIDEMENT, WASHOUT AND POSSIBLE WOUND VAC PLACEMENT; Surge on: Qasim Pederson MD; [place] [facility] [place] OTHER SURGICAL HISTORY Left 03/11/2019 AV FISTULA PLACEMENT - Procedure: AV FISTULA; Surgeon: Qasim Pederson MD; Location: [facility] OR; Service: Vascular; Laterality: Left; OTHER SURGICAL HISTORY HARDWARE PRESENT OTHER SURGICAL HISTORY Right 01/2019 chest wall OTHER SURGICAL HISTORY Left 05/06/2019 AV GRAFT CREATION - Procedure: AV GRAFT CREATION; Surgeon: Qasim Pederson MD; Location: [facility] OR; Service: Vascular; Laterality: Left; bovine carotid graft OTHER SURGICAL HISTORY Left 05/26/2019 WOUND VAC PLACEMENT/REPLACEMENT - Procedure: WOUND VAC - PLACEMENT - REPLACEMENT; Surgeon : Qasim Pederson MD; Location: [facility]; Service: Vascular; Laterality: Left; PERITONEAL CATHETER PLACEMENT/REMOVAL 10/28/2015 Procedure: LAPAROSCOPIC - PERITONEAL DIALYSIS CATH INSERTION; Surgeon: Mundo Ramos MD; Lo cation: [facility]; Service: Vascular; Laterality: N/A; UPPER GASTROINTESTINAL ENDOSCOPY 09/10/2017 Procedure: ESOPHAGOGASTRODUODENOSCOPY; Surgeon: Beena Peters MD; Location: [facility]; Service: Gastroenterology; Laterality: N/A; WISDOM TOOTH EXTRACTION Facility-Administered Medications Prior to Admission Medication Dose Route Frequency Provider Last Rate Last Dose HYDROcodone-acetaminophen (NORCO) 5-325 mg per tablet 1-2 tablet 1-2 tablet Oral Q4H P RN Man Jeronimo PA-C Medications Prior to Admission Medication Sig Dispense Refill [] clindamycin (CLEOCIN) 300 MG capsule Take 1 capsule by mouth every 6 hours fo r 10 days. Indications: Wound Infection After Surgery 40 capsule 0 omeprazole (PRILOSEC) 20 mg capsule Take [...] once daily in the evening with meals. Allergies Allergen Reactions Adhesive & Tape Itching Family History Problem Relation Age of Onset Cancer Maternal Grandmother breast ca Kidney disease Paternal Grandfather renal falure Other (see comment) Mother Other (see comments) - healthy Diabetes Father Breast cancer Maternal Grandmother Maljordan hypertherm Neg Hx Social History Socioeconomic History Marital status: Spouse [...] and is a former smoker. Scheduled Medications epoetin chito-epbx 10,000 Units Intravenous With each dialysis heparin 1,500-6,000 Units Intracatheter After each dialysis heparin 1,500-6,000 Units Intracatheter After each dialysis heparin 5,000 Units Subcutaneous 2 times per day pantoprazole 40 mg Oral QAM AC sevelamer carbonate 1,600 mg Oral BID WC (bfast and lunch) sevelamer carbonate 2,400 mg Oral Daily with dinner vancomycin 1,000 mg Intravenous See Admin Instructions vancomycin per pharmacy Other Pharmacy Consult Continuous Infusions PRN Medications Allergy: Allergies Allergen Reactions Adhesive & Tape Itching OBJECTIVE Vital Signs: BP 142/82 | Pulse 77 | Temp 37.3 C (99.1 F) (Oral) | Resp 16 | Ht 1.575 m (5' 2") | Wt 81.7 kg (180 lb 1.9 oz) | LMP 08/10/2019 | SpO2 99% | ? No | BMI 32.94 kg/m I&O Detailed Table: I/O last 3 completed shifts: In: 1150 [P.O.:1150] Out: 1100 [Other:100] Weight change: -11.8 kg (-26 lb 0.2 oz) Examination: APPEARANCE: The patient is a pleasant lying in bed in no distress VITALS: Reviewed as listed. HEENT: NC/AT. +ve pale conjunctiva LUNGS: Clear to auscultation bilaterally. HEART: S1, S2, no pericardial rub noted. ABDOMEN: Full, soft, no tenderness. EXTREMITIES: no pedal edema noted. NEUROLOGIC: No gross focal motor deficit noted. PSYCH: The patient is alert and oriented x 3, mood and affect looks ok R IJ Tunneled HD CATHTER in place L ARM dressed with wound vac in place LABS: Recent Results (from the past 24 hour(s)) CBC no Differential Collection Time: 09/08/19 4:47 Result Value Ref Range WBC 8.38 3.80 - 11.00 K/uL RBC 3.57 (L) 3.70 - 5.10 M/uL Hemoglobin 10.6 (L) 11.3 - 15.5 g/dL Hematocrit 31.9 (L) 34.0 - 46.0 % MCV 89.2 80.0 - 100.0 fl MCH 29.6 27.0 - 34.0 pg MCHC 33.2 32.0 - 35.5 g/dL RDW-SD 45.5 37 - 53 fl Platelet Count 286 150 - 400 K/uL MPV 8.6 fl Basic Metabolic Panel Collection Time: 09/08/19 4:47 Result Value Ref Range Na 138 135 - 145 mmol/L K 4.2 3.5 - 4.9 mmol/L Cl 102 99 - 109 mmol/L CO2 26 23 - 32 mmol/L Anion Gap 14 5 - 20 mmol/L Glucose 99 65 - 99 mg/dL BUN 24 8 - 25 mg/dL Creatinine 10.0 (H) 0.50 - 1.00 mg/dL BUN/Creatinine Ratio 2 Calcium 9.2 8.5 - 10.5 mg/dL Estimated GFR 4 (L) >60 mL/min/1.73m2 Magnesium Collection Time: 09/08/19 4:47 Result Value Ref Range Magnesium 2.9 (H) 1.7 - 2.4 mg/dL Phosphorus Collection Time: 09/08/19 4:47 Result Value Ref Range Phosphorus 5.3 (H) 2.3 - 4.8 mg/dL Patient's old records, imaging and labs were reviewed in detail and summarized. PROBLEM LIST Principal Problem: Infected prosthetic vascular graft, initial encounter ASSESSMENT & PLAN ESRD ON HD Tolerated hd/uf well this am Hd flow sheet reviewed Assess daily need for hd/uf Orders in the chart Fluid restriction 1.2 litres/24 hours Strict I & O Daily RFP Renal diet Daily weights will help with subsequent hd with uf Dose all meds per protocol for ESRD on hd ANEMIA in ESRD Stable EPOGEN TO KEEP HGB 10-11 Lab Results Component Value Date HGB 10.6 (L) 09/08/2019 HGB 10.9 (L) 09/07/2019 HGB 10.1 (L) 09/06/2019 HYPERTENSION Controlled WATCH BP CLOSELY DURING HOSPITALIZATION LOW NA DIET Will adjust BP meds according to BP readings BP Readings from Last 3 Encounters: 09/08/19 142/82 08/28/19 115/75 08/10/19 128/58 HYPERPHOSPHATEMIA Labile LOW P DIET Continue PO4 BINDERS Renvela with meals Lab Results Component Value Date PHOS 5.3 (H) 09/08/2019 PHOS 4.1 09/07/2019 PHOS 6.3 (H) 09/06/2019 HYPOALBUMINEMIA Controlled INCREASE PROTEIN INTAKE L ARM AVG S/P Excision by Dr Ramos On abx per primary team CASE DISCUSSED IN DETAIL WITH PATIENT/ care team, ANSWERS ALL QUESTIONS IN DETAIL, VERBALIZ ES UNDERSTANDING Linden Alonzo MD 09/08/2019 No Physician on file Seen earlier and charting completed later Dictation software, VtagO, used which may contain error for similar sounding words even af ter review. Personal communication requested for any clarification. Florentino Ling RN - 09/08/2019 9:30 AM PDTCar e Management Follow-Up Readmission Risk: Medium Current Discharge Plan Anticipated Discharge Disposition: home Expected DC Date: Barriers to Discharge: Steps Taken Toward Discharge: Faxed Referral to wound care to [facility] and calledNeelima has accepted and schedule appointment for 09/09/2019 @ 1430 Next Steps: d/c Community Support Services Current Outpt/Agency/Support Groups: outpatient hemodialysis (specify) Community Agency Name: [facility] wound clinic Other Resources: Discharge Transportation Transportation Needs: none Family will provide Notes: Pt has appointment tomorrow for wound clinic at 1430. Pt and Family aware. Electronically signed: Florentino Faye RN 09/08/2019 9:30 Eliazar Renee PharmD - 09/07/2019 1:33 PM PDTVanronald ycin Monitoring Day 5 Serum creatinine: 6.6 mg/dL (H) 09/07/19 0431 Estimated creatinine clearance: 12 mL/min (A) WBC = 8.66 K/uL ESRD on HD, last HD on 09/07 Plan per protocol: No plan HD today. No dose 09/07/2019 13:32 Pharmacist: ELIAZAR HUMPHRIES PharmD Linden Kincaid MD - 09/07/2019 11:35 AM PDT [facility] Service: NEPHROLOGY Progress Note Ramona Reeves 39 y.o. [id number] female No Physician on file Hospital Day: LOS: 4 days 39 y.o.female admitted with infected Left arm AVG S/P Nephrology consulted for evaluation and management of ESRD ONSET Chronic severity severe Associated with fluid electrolyte acid base imbalances Assess need for hd/uf Seen and examined Feels ok, appetite good no cp, sob, n , v, d, fever, h/a Past Medical History: Diagnosis Date Acid reflux [...] normal sized kidneys. 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) Hypercalcemia 09/07/2017 Hyperphosphatemia [...] - REMOVAL; Surgeon: Qasim Pederson MD; Location: [facility] ; Service: Vascular; Laterality: N/A; Infected PD catheter removal DEBRIDEMENT Left 07/08/2019 Procedure: LEFT AXILLA WOUND DEBRIDEMENT, WASHOUT AND POSSIBLE WOUND VAC PLACEMENT; Surge on: Qasim Pederson MD; [place] [facility] [place] OTHER SURGICAL HISTORY Left 03/11/2019 AV FISTULA PLACEMENT - Procedure: AV FISTULA; Surgeon: Qasim Pederson MD; Location: [facility]; Service: Vascular; Laterality: Left; OTHER SURGICAL HISTORY HARDWARE PRESENT OTHER SURGICAL HISTORY Right 01/2019 chest wall OTHER SURGICAL HISTORY Left 05/06/2019 AV GRAFT CREATION - Procedure: AV GRAFT CREATION; Surgeon: Qasim Pederson MD; Location: [facility]; Service: Vascular; Laterality: Left; bovine carotid graft OTHER SURGICAL HISTORY Left 05/26/2019 WOUND VAC PLACEMENT/REPLACEMENT - Procedure: WOUND VAC - PLACEMENT - REPLACEMENT; Surgeon : Qasim Pederson MD; Location: [facility]; Service: Vascular; Laterality: Left; PERITONEAL CATHETER PLACEMENT/REMOVAL 10/28/2015 Procedure: LAPAROSCOPIC - PERITONEAL DIALYSIS CATH INSERTION; Surgeon: Mundo Ramos MD; Lo cation: [facility]; Service: Vascular; Laterality: N/A; UPPER GASTROINTESTINAL ENDOSCOPY 09/10/2017 Procedure: ESOPHAGOGASTRODUODENOSCOPY; Surgeon: Beena Peters MD; Location: [facility]; Service: Gastroenterology; Laterality: N/A; WISDOM TOOTH EXTRACTION Facility-Administered Medications Prior to Admission Medication Dose Route Frequency Provider Last Rate Last Dose HYDROcodone-acetaminophen (NORCO) 5-325 mg per tablet 1-2 tablet 1-2 tablet Oral Q4H P RN Man Jeronimo PA-C Medications Prior to Admission Medication Sig Dispense Refill clindamycin (CLEOCIN) 300 MG capsule Take 1 capsule by mouth every 6 hours for 10 days. Indications: Wound Infection After Surgery 40 capsule 0 omeprazole (PRILOSEC) 20 mg capsule Take [...] once daily in the evening with meals. Allergies Allergen Reactions Adhesive & Tape Itching Family History Problem Relation Age of Onset Cancer Maternal Grandmother breast ca Kidney disease Paternal Grandfather renal falure Other (see comment) Mother Other (see comments) - healthy Diabetes Father Breast cancer Maternal Grandmother Malig hypertherm Neg Hx Social History Socioeconomic History Marital status: Spouse [...] and is a former smoker. Scheduled Medications heparin 1,500-6,000 Units Intracatheter After each dialysis heparin 5,000 Units Subcutaneous 2 times per day pantoprazole 40 mg Oral QAM AC sevelamer carbonate 1,600 mg Oral BID WC (bfast and lunch) sevelamer carbonate 2,400 mg Oral Daily with dinner vancomycin 1,000 mg Intravenous See Admin Instructions vancomycin per pharmacy Other Pharmacy Consult Continuous Infusions PRN Medications Allergy: Allergies Allergen Reactions Adhesive & Tape Itching OBJECTIVE Vital Signs: BP 166/82 | Pulse 64 | Temp 37 C (98.6 F) (Oral) | Resp 18 | Ht 1.575 m (5' 2") | Wt 94.6 kg (208 lb 8.9 oz) | LMP 08/10/2019 | SpO2 100% | ? No | BMI 38.15 kg/m I&O Detailed Table: I/O last 3 completed shifts: In: 950 [P.O.:950] Out: 1100 [Other:100] Weight change: Examination: APPEARANCE: The patient is a pleasant lying in bed comfortably VITALS: Reviewed as listed. HEENT: NC/AT. +ve pale conjunctiva LUNGS: Clear to auscultation bilaterally. HEART: S1, S2, no pericardial rub noted. ABDOMEN: Full, soft, no tenderness. EXTREMITIES: no pedal edema noted. NEUROLOGIC: No gross focal motor deficit noted. PSYCH: The patient is alert and oriented x 3, mood and affect looks ok, memory seems to be intact. R IJ Tunneled HD CATHTER FUNCTIONING in place L ARM dressed with wound vac in place LABS: Recent Results (from the past 24 hour(s)) CBC no Differential Collection Time: 09/07/19 4:31 Result Value Ref Range WBC 8.66 3.80 - 11.00 K/uL RBC 3.66 (L) 3.70 - 5.10 M/uL Hemoglobin 10.9 (L) 11.3 - 15.5 g/dL Hematocrit 32.5 (L) 34.0 - 46.0 % MCV 88.9 80.0 - 100.0 fl MCH 29.9 27.0 - 34.0 pg MCHC 33.6 32.0 - 35.5 g/dL RDW-SD 44.6 37 - 53 fl Platelet Count 286 150 - 400 K/uL MPV 8.7 fl Basic Metabolic Panel Collection Time: 09/07/19 4:31 Result Value Ref Range Na 137 135 - 145 mmol/L K 4.8 3.5 - 4.9 mmol/L Cl 103 99 - 109 mmol/L CO2 27 23 - 32 mmol/L Anion Gap 12 5 - 20 mmol/L Glucose 93 65 - 99 mg/dL BUN 19 8 - 25 mg/dL Creatinine 6.6 (H) 0.50 - 1.00 mg/dL BUN/Creatinine Ratio 3 Calcium 8.6 8.5 - 10.5 mg/dL Estimated GFR 7 (L) >60 mL/min/1.73m2 Magnesium Collection Time: 09/07/19 4:31 Result Value Ref Range Magnesium 2.5 (H) 1.7 - 2.4 mg/dL Phosphorus Collection Time: 09/07/19 4:31 Result Value Ref Range Phosphorus 4.1 2.3 - 4.8 mg/dL Patient's old records, imaging and labs were reviewed in detail and summarized. PROBLEM LIST Principal Problem: Infected prosthetic vascular graft, initial encounter ASSESSMENT & PLAN ESRD ON HD No need for hd/uf today from fluid electrolyte acid base balance point of view Assess daily need for hd/uf Plan for hd/ uf in am Orders in the chart Fluid restriction 1.2 litres/24 hours Strict I & O Daily RFP Renal diet Daily weights will help with subsequent hd with uf Dose all meds per protocol for ESRD on hd ANEMIA in ESRD Stable EPOGEN TO KEEP HGB 10-11 Lab Results Component Value Date HGB 10.9 (L) 09/07/2019 HGB 10.1 (L) 09/06/2019 HGB 10.6 (L) 09/05/2019 HYPERTENSION Labile WATCH BP CLOSELY DURING HOSPITALIZATION LOW NA DIET Will adjust BP meds according to BP readings BP Readings from Last 3 Encounters: 09/07/19 166/82 08/28/19 115/75 08/10/19 128/58 HYPERPHOSPHATEMIA Improving LOW P DIET PO4 BINDERS Renvela with meals Lab Results Component Value Date PHOS 4.1 09/07/2019 PHOS 6.3 (H) 09/06/2019 PHOS 4.8 09/05/2019 HYPOALBUMINEMIA INCREASE PROTEIN INTAKE L ARM AVG S/P Excision by Dr Ramos On abx per primary team CASE DISCUSSED IN DETAIL WITH PATIENT/ care team, ANSWERS ALL QUESTIONS IN DETAIL, VERBALIZ ES UNDERSTANDING Linden Alonzo MD 09/07/2019 No Physician on file Seen earlier and charting completed later Dictation software, VtagO, used which may contain error for similar sounding words even af ter review. Personal communication requested for any clarification. Man Jha PA-C - 09/07/2019 9:03 AM PDTLucas rmatting of this note might be different from the original. [facility] Service: Vascular Surgery Progress Note Post-Op Day: 4 SUBJECTIVE Patient Summary: The patient is 39 y.o. female with significant past medical history of HTN and ESRD who presents with fever and chills with concern for infection of left arm AV graft. She initially had the left arm AV graft created using bovine carotid artery in May 06. The operation was complicated by wound dehiscence and patient taken to the OR on 05/26 for wound washout and vac placement. After few weeks of wound vac, patient was taken back t o the OR on 07/08 due to the graft being exposed for another washout and replacement of wound vac. Wound vac was eventually removed. Patient was seen in clinic on 08/24 for another wo und check and graft was seen exposed in the wound. Patient was scheduled for another wound washout, graft removal, and wound vac placement. However, on 08/26 patient was emergently t r[facility]ferred to [facility] for severe bleeding from left axilla. She was taken to the OR for carito t ligation. However, the graft was not removed and wound was closed. Patient now presents w ith erythema and pain around prior graft site. Therefore, vascular surgery was consulted. Events Overnight: POD 4. Dressing changed yesterday without difficulties. Pain improv ed and swelling improved after arm elevation. OBJECTIVE Vital Signs: Vitals: 09/07/19 0245 BP: 120/65 Pulse: 74 Resp: 18 Temp: 36.8 C (98.2 F) Physical Exam Vitals:reviewed CONSTITUTIONAL: Conversant, well developed, NAD EYES: Anicteric sclerae, no lid drag, no proptosis RESP: Normal effort, regular, even, unlabored rate CV: No peripheral edema, rate regular SKIN: [place], warm, dry without rash/lesion MS: ROM not limited, no digital cyanosis, normal gait NEURO: Conversant, A&O times 3 PSYCH: appropriate affect, speech and tone, judgement and insight intact Vascular: Wound vac holding suction in left axilla. Mild erythema noted. Distal pulses int act. Wilmer wrap in place. Arm swelling decreased from yesterday. Labs: Lab Results Component Value Date WBC 8.66 09/07/2019 HGB 10.9 (L) 09/07/2019 HCT 32.5 (L) 09/07/2019 PLT 286 09/07/2019 CHOL 116 01/05/2019 TRIG 158 (H) 01/05/2019 HDL 45 01/05/2019 ALT <7 (L) 09/03/2019 AST 12 09/03/2019 NA 137 09/07/2019 K 4.8 09/07/2019 CL 103 09/07/2019 CREA 6.6 (H) 09/07/2019 BUN 19 09/07/2019 CO2 27 09/07/2019 TSH 3.40 10/27/2015 INR 1.1 01/05/2019 GLUF 71 05/26/2019 PROBLEM LIST Patient Active Problem List Diagnosis Date Noted POA Infected prosthetic vascular graft, initial encounter 09/03/2019 Unknown Wound, surgical, nonhealing, initial encounter 08/26/2019 Unknown AV graft malfunction, initial encounter 08/26/2019 Unknown S/P arteriovenous (AV) graft repair 08/26/2019 Unknown Leukocytosis 08/26/2019 Unknown Shock 08/26/2019 Unknown Bleeding from dialysis shunt 08/26/2019 Unknown Obesity (BMI 30-39.9) 08/26/2019 Unknown Infection of arteriovenous dialysis fistula, subsequent encounter 08/25/2019 Unknown ESRD on hemodialysis 08/25/2019 Unknown ESRD on dialysis 07/06/2019 Unknown Wound infection after surgery 07/06/2019 Unknown Anemia in ESRD (end-stage renal disease) 06/13/2019 Unknown Secondary hyperparathyroidism 06/13/2019 Unknown Peritonitis associated with peritoneal dialysis 02/15/2019 Unknown End-stage renal disease 02/01/2019 Unknown Abnormal EKG 01/05/2019 Unknown Diverticulitis 01/05/2019 Unknown Hyperphosphatemia 01/05/2019 Unknown Cold intolerance 04/03/2018 Unknown GERD with esophagitis 03/17/2018 Unknown Cyst of right ovary 09/07/2017 Unknown Gastroesophageal reflux disease without esophagitis 01/23/2017 Unknown Ovarian mass, right 10/25/2015 Unknown ASSESSMENT & PLAN Infection of previously ligated arteriovenous graft / Sepsis - POD 4. Wound vac and dressin g changed yesterday. Continue wound vac dressing changes every 3 days. ID following, continu e IV antibiotics. Will need IV antibiotics upon discharge, will need to coordinate with HD c enter. Can be discharged from a Vascular standpoint once wound vac and antibiotic plan final ized. Code Status: Full code Man Jeronimo PA-C Vascular Surgery Herberth Esparza MD - 09/07/2019 8:31 AM PDT [facility] Adult Hospitalist Progress Note Hospital Day: 4 Patient Summary: 39 y/o F with ESRD, HTN, who was admitted for infected AV graft in the LUE, who had initita lly had L arm AV graft using bovine carotid artery May 06, 2019, course complicated by woun d dehiscence, underwent wound washout and wound vac placement 05/26/19, Taken back to OR 06/11 07/29 due to graft being exposed for another washout and replacement of wound vac, which was eventually removed. Patient was seen in Vascular Surgery clinic 08/24/19 for wound check an d graft was found to be exposed in wound. She was scheduled jose taken back to OR however p t was admitted on 08/26/19 emergently transferred from outside facility for severe bleeding from L axilla. She went to the OR on 09/03/[address] Ramos for the following procedures: Left axilla exploration Left arm basilic vein harvest Removal of infected graft from axillary artery and vein Patch repair of left axillary artery using basilic vein for patch Primary repair of left axillary vein Washout of axilla with antibiotic solution Counter incision and removal of infected graft from left upper ar m Wound vac placement of axilla and counter Wound culture revealed E faecalis. Blood cultures NGTD. Plan is to discharge with IV abx o n HD from 09/03-10/01,awaiting for this to be arranged IMPRESSION/PLAN: Principal Problem: Infected prosthetic vascular graft, initial encounter Awaiting abx to Be set up with HD as well as wound vac to be placed Wound culture revealed E faecalis. Blood cultures NGTD. Plan is to discharge with IV abx on HD from 09/03-10/01,awaiting for this to be arranged ESRD HD per Nephrology GI prophylaxis: protonix DVT prophylaxis: heparin sq and SCDs SUBJECTIVE Patient seen and examined. Had nausea and vomiting today of clear liquid, resolved with me dication OBJECTIVE Vital Signs: BP 120/65 | Pulse 74 | Temp 36.8 C (98.2 F) (Oral) | Resp 18 | Ht 1.575 m (5' 2") | Wt 94.6 kg (208 lb 8.9 oz) | LMP 08/10/2019 | SpO2 95% | ? No | BMI 38.15 kg/m Physical Exam: Constitutional: Alert and oriented to person, place, and time. Appears chronically ill HEENT: Neck supple, no JVD, non icteric sclera. Cardiovascular: Normal rate, regular rhythm, no murmur Pulmonary/Chest: Effort normal and breath sounds normal. No stridor. No respiratory distres s. no wheezes. no rales. Abdominal: Soft. Bowel sounds are normal. No distension.There is no tenderness. Extremeties/Musculoskeletal: Dressing in LUE Neurological: Alert and oriented to person, place, and time. Skin: Skin is warm. No diaphoresis. Psychiatric: Has normal mood and affect. DATA Labs: No results found. Recent Labs 09/07/1943009/06/19513 WBC 8.66 8.65 HGB 10.9* 10.1* HCT 32.5* 29.7* PLT 286 276 MCV 88.9 88.5 Recent Labs Lab 09/07/1943009/06/1951309/05/1952509/03/19 1332 NA 137 135 136 < > 138 K 4.8 4.5 4.1 < > 5.5* CL 103 99 100 < > 102 CO2 27 26 27 < > 27 ANIONGAP 12 15 13 < > 15 BUN 19 47* 36* < > 31* CREA 6.6* 11.3* 8.7* < > 9.05* CALCIUM 8.6 8.6 9.4 < > 9.1 ALBUMIN -- -- -- -- 4.0 ALKPHOS -- -- -- -- 73 ALT -- -- -- -- <7* AST -- -- -- -- 12 MG 2.5* 3.2* 3.0* < > 3.2* PHOS 4.1 6.3* 4.8 < > -- < > = values in this interval not displayed. Recent Labs 09/07/1943009/06/1951309/05/19525 GLU 93 78 91 No results for input(s): TROPONIN, BNP in the last 72 hours. No results for input(s): PROTIME, INR, PTT in the last 168 hours. No results for input(s): IRON, TIBC, PCTSAT, FERRITIN, TSH, [id number], FOLATE in the last 168 hours. No results for input(s): LACTATE, PROCALCITONI, CRP, ESR in the last 168 hours. No results for input(s): AMYLASE, LIPASE in the last 168 hours. No results for input(s): TRIG, CHOL, HDL, LDL in the last 168 hours. No results for input(s): AMMONIA in the last 168 hours. Imaging reviewed and important information summarized in the note PROBLEM LIST Principal Problem: Infected prosthetic vascular graft, initial encounter I spent over 35 minutes reviewing patient's labs, diagnostic, tests, performing history and examination, discussing plan of care with patient and family if indicated. At least 50% of time was spent in qizk-ay-utme coordination of care and counseling. All questions were ans wered. All data reviewed. Disposition: Admitted inpatient Code Status: Full Code Herberth Escoto MD 09/07/2019 8:31 Portions of this chart may have been created with voice recognition software. Occasional wr nehemiah-word or "sound-alike" substitutions may have occurred, even after review, due to the inh erent limitations of voice recognition software. Please read the chart carefully and recogni ze, using context, where these substitutions have occurred. Personal communication is reques medina for any clarifications. Florentino Granados R N - 09/07/2019 8:23 AM PDTCare Management Follow-Up Readmission Risk: Medium Current Discharge Plan Anticipated Discharge Disposition: home Expected DC Date: Barriers to Discharge: none Steps Taken Toward Discharge: Followed up on [facility] referral Next Steps: Face to face needs to be written at discharge and faxed to [facility] . Community Support Services Current Outpt/Agency/Support Groups: outpatient hemodialysis (specify) Community Agency Name: [facility]onia Martin Other Resources: [facility] Discharge Transportation Transportation Needs: none Notes: called and followed up on referral sent yesterday. [facility] received referral and accepting pending face to face home health order at discharge. ADDENDUM: CM discussed with Pt again on home health, Pt states she would like to continue w ound vac dressing changes at [facility] and has her own wound vac. She w as getting dressing changes Friday, and Friday. I called the wound clinic and [facility] wants new wound vac orders in place before scheduling appt. Dr. Escoto notified. Dr. Pederson was following prior to admission for wound care. Electronically signed: Florentino Faye, MICHELLE 09/07/2019 8:23 Eliazar Renee Pharm D - 09/06/2019 3:38 PM PDTVancomycin Monitoring Day 4 Serum creatinine: 11.3 mg/dL (H) 09/06/19 0514 Estimated creatinine clearance: 7 mL/min (A) WBC = 8.65 K/uL Dialysis today Plan per protocol: Vancomycin 1000 mg IV once after dialysis today. 09/06/2019 15:36 Pharmacist: ELIAZAR HUMPHRIES PharmD Amrita Lindsey RN - 09/06/2019 12:33 PM PDT [facility] Service: Wound Care NPWT Note Hospital Day: 3 SUBJECTIVE Patient Summary: NPWT dressing change to left axilla and left upper arm OBJECTIVE 09/06/19 1226 Visit Information Visit Type Wound re-assessment Wound 08/26/191927 Incision Left arm Placement Date/Time: 08/26/191927 Primary Wound Type: Incision Side: Left Location: ar m Wound WDL ex Dressing Appearance dry;intact Base clean;moist;pink;granulating Periwound Area intact;dry Periwound Comment stapled incision to beba-wound, ruptured blister noted, less adhesive scarlett pe used. Wound Length (cm) 2 cm Wound Width (cm) 6 cm Wound Depth (cm) 1 cm Wound Surface Area (cm^2) 12 cm^2 Wound Volume (cm^3) 12 cm^3 Drainage Characteristics/Odor serosanguineous Drainage Amount moderate Wound Cleaning cleansed with;sterile normal saline Dressing transparent film Negative Pressure changed Therapy Setting (Negative Pressure Wound Therapy) continuous therapy Pressure Setting (Negative Pressure Wound Therapy) 125 mmHg Dressing (Negative Pressure Wound Therapy) foam, black;other (see comments) (versatel contact layer) Sponges Inserted (Negative Pressure Wound Therapy) 2 (1 versatel contact layer) Sponges Removed (Negative Pressure Wound Therapy) 1 Wound Bed% Granulation 76-100% Wound Image Wound Incision Left mid axillary No Placement Date or Time found. Present on Hospital Admission: Yes Primary Wound Type: Incision Side: Left Location: mid axillary Wound WDL ex Dressing Appearance intact;dry Base clean;moist;pink;granulating Periwound Area intact;dry Wound Length (cm) 7 cm Wound Width (cm) 3 cm Wound Depth (cm) 1.5 cm Wound Surface Area (cm^2) 21 cm^2 Wound Volume (cm^3) 31.5 cm^3 Drainage Characteristics/Odor serosanguineous Drainage Amount moderate Wound Cleaning cleansed with;sterile normal saline Dressing transparent film Negative Pressure changed Therapy Setting (Negative Pressure Wound Therapy) continuous therapy Pressure Setting (Negative Pressure Wound Therapy) 125 mmHg Dressing (Negative Pressure Wound Therapy) foam, black;other (see comments) (versatel contact layer) Sponges Inserted (Negative Pressure Wound Therapy) 2 (1 contact layers) Sponges Removed (Negative Pressure Wound Therapy) 1 Wound Bed% Granulation 76-100% Wound Image Visit Summary Discipline Providing Treatment WOCN WOCN Frequency 3 times/wk Next Wound/Ostomy Visit Date 09/08/19 PROBLEM LIST Patient Active Problem List Diagnosis Peritonitis associated with peritoneal dialysis Abnormal EKG Anemia in ESRD (end-stage renal disease) Cold intolerance Cyst of right ovary Diverticulitis End-stage renal disease Gastroesophageal reflux disease without esophagitis GERD with esophagitis Hyperphosphatemia Ovarian mass, right Secondary hyperparathyroidism ESRD on dialysis Wound infection after surgery Infection of arteriovenous dialysis fistula, subsequent encounter ESRD on hemodialysis Wound, surgical, nonhealing, initial encounter AV graft malfunction, initial encounter S/P arteriovenous (AV) graft repair Leukocytosis Shock Bleeding from dialysis shunt Obesity (BMI 30-39.9) Infected prosthetic vascular graft, initial encounter ASSESSMENT & PLAN Negative Pressure Wound Therapy Initiated/Continued as Follows: NPWT Status: Continued NPWT Cycle: continuous therapy NPWT Foam/Contact Removed:2 black foam NPWT Foam/Contact Placed and Number of Each: 4 black foam, 2 versatel contact layers NPWT Next Dressing Due: 09/08/19 NPWT Dressing Size Needed: Medium black foam, extra tract pad Today s Therapy Notes: NPWT dressing change today with IV pain medication. Pt required additional oral pain medica tion during dressing change. Versatel contact layer was used today to help with pain of dres sing change. Clean moist pink granular tissue, intact beba-wound skin and moderate serosangu inous drainage noted today. Cleansed with NS, skin prep and drape to beba-wound, versatel co ntact layer and black foam. Sealed. Left axilla and left upper arm dressing connected with Y -connection and placed to NPWT. Seal obtained at 125mmHG continuous. Wound RN will request l idocaine for next dressing change. After Hours Troubleshooting: Vacuum Assisted Closure Policy [phone] has full NPWT dressing procedure details if needed . If NPWT dressing fails and wound care is not available, evaluate the reason on the VAC scre en. For occluded line: Try replacing the canister or track pad. For leaking dressing: Use additional [employer] adhesive film or Tegaderm to reinforce leaking are a as needed. If NPWT suction is interrupted for longer than 2 hours, the entire dressing, including the foam, must be removed and replaced with a wet to dry dressing that is to be changed three ti mes a day. Thank you for allowing me to participate in the care of this patient. I will continue to follow with you. JUJU Saldaña RN [facility] 09/06/19 12:38 Florentino Granados RN - 09/06/2019 11:16 AM PDTCare Management Follow-Up Readmission Risk: Medium Current Discharge Plan Anticipated Discharge Disposition: home Expected DC Date: Barriers to Discharge: Steps Taken Toward Discharge: called Soo mclaughlin for [facility] and notified her o f IV ABX with HD, sent referral to [facility] for wound Vac care. Next Steps: follow-up with home health on acceptance. Community Support Services Current Outpt/Agency/Support Groups: outpatient hemodialysis (specify) Community Agency Name: Other Resources: Discharge Transportation Transportation Needs: none Notes: Called Soo mclaughlin for [facility] and notified her of HD with IV ABX, Soo will fol low. I sent referral to [facility]. CM will follow up with HH for wound va c. Wound Vac pre-authorization form signed and sent to Teodora liaison for [employer]. Electronically signed: Florentino Faye RN 09/06/2019 11:16 rsales, Cathie Buck MD - 09/06/2019 9:45 AM PDTFormatting of this note might be different from the [facility]: [facility]ious Diseases Progress Note Hospital Day: LOS: 3 days Post-Op Day: 3 Days Post-Op CC: follow up on infection and antibiotic therapy SUBJECTIVE/OVERNIGHT EVENTS The patient remains on treatment with antibiotics. No acute events over last 24 hours are reported. REVIEW OF SYSTEMS: feeling better today MEDICATIONS: Reviewed PHYSICAL EXAM Vital Signs: BP 140/87 | Pulse 71 | Temp 36.7 C (98 F) (Oral) | Resp 18 | Ht 1.575 m (5' 2") | Wt 87.1 kg (192 lb) | LMP 08/10/2019 | SpO2 97% | ? No | BMI 35.12 kg/m Focused exam shows: General exam: No distress, cooperative with exam. HEENT: sclera non-icteric, no visible oral thrush Extremities/MSK: LUE graft site bandaged Skin: No lesions, normal turgor Neurologic: Awake, cranial nerves intact. Follows commands. LABS: MICRO Culture, Blood [[id number]] Collected: 09/03/192015 Order Status: Completed Specimen: Blood Updated: 09/05/1921 Special Requests DIALYSIS PORT Special Requests [place] [facility] [place] [id number] RESULT NO GROWTH 2 DAYS RESULT Testing performed at [facility], [address] [place] [address] Comment: Testing performed at [facility], [address] [place] [address] Culture, Tissue, Smear, with Anaerobes [[id number]] (Abnormal) Collected: 09/03/19 1723 Order Status: Completed Specimen: Tissue from Arm, Left Updated: 09/06/19914 Special Requests L ARM Special Requests Testing [place] at [facility] [place] [address] Gram Stain Result -- 3+ WBC'S SEEN Gram Stain Result -- 4+ GRAM POSITIVE COCCI Gram Stain Result Testing performed at [facility], [address] [place] [address] RESULT --Abnormal 2+ ENTEROCOCCUS FAECALIS Aminoglycosides (except for high-level resistance testing), cephalosporins, clindamycin, an d trimethoprim-sulfamethoxazole may appear active in vitro but they are not effective clinic ally. Abnormal Susceptibility Enterococcus faecalis (1) Antibiotic Interpretation Vitek 2XL Method Status Ampicillin Sensitive SUSCEPTIBLE CORINNE Preliminary Penicillin G Sensitive SUSCEPTIBLE CORINNE Preliminary Levofloxacin Sensitive SUSCEPTIBLE CORINNE Preliminary Vancomycin Sensitive SUSCEPTIBLE CORINNE Preliminary Testing performed at [facility], [address] [place] [address] Culture, Wound, Smear, w/Anaerobe [[id number]] (Abnormal) Collected: 09/03/19 1627 Order Status: Completed Specimen: Tissue from Arm, Left Updated: 09/06/19912 Special Requests LT ARM GRAFT SITE Special Requests Testing performed at [facility] [place] [address]12 Gram Stain Result WBC'S SEEN Gram Stain Result GRAM POSITIVE COCCI Gram Stain Result STAIN PERFORMED ON CYTOSPIN Gram Stain Result Testing performed at [facility] [place] [address] RESULT --Abnormal 2+ ENTEROCOCCUS FAECALIS Aminoglycosides (except for high-level resistance testing), cephalosporins, clindamycin, an d trimethoprim-sulfamethoxazole may appear active in vitro but they are not effective clinic ally. Abnormal Susceptibility Enterococcus faecalis (1) Antibiotic Interpretation Vitek 2XL Method Status Ampicillin Sensitive SUSCEPTIBLE CORINNE Preliminary Penicillin G Sensitive SUSCEPTIBLE CORINNE Preliminary Levofloxacin Sensitive SUSCEPTIBLE CORINNE Preliminary Vancomycin Sensitive SUSCEPTIBLE CORINNE Preliminary Testing performed at [facility], [address] [place] [id number] All labs were reviewed.Data: Recent Results (from the past 24 hour(s)) CBC no Differential Result Value Ref Range WBC 8.65 3.80 - 11.00 K/uL RBC 3.36 (L) 3.70 - 5.10 M/uL Hemoglobin 10.1 (L) 11.3 - 15.5 g/dL Hematocrit 29.7 (L) 34.0 - 46.0 % MCV 88.5 80.0 - 100.0 fl MCH 30.1 27.0 - 34.0 pg MCHC 34.0 32.0 - 35.5 g/dL RDW-SD 43.3 37 - 53 fl Platelet Count 276 150 - 400 K/uL MPV 8.7 fl Basic Metabolic Panel Result Value Ref Range Na 135 135 - 145 mmol/L K 4.5 3.5 - 4.9 mmol/L Cl 99 99 - 109 mmol/L CO2 26 23 - 32 mmol/L Anion Gap 15 5 - 20 mmol/L Glucose 78 65 - 99 mg/dL BUN 47 (H) 8 - 25 mg/dL Creatinine 11.3 (H) 0.50 - 1.00 mg/dL BUN/Creatinine Ratio 4 Calcium 8.6 8.5 - 10.5 mg/dL Estimated GFR 4 (L) >60 mL/min/1.73m2 Magnesium Result Value Ref Range Magnesium 3.2 (H) 1.7 - 2.4 mg/dL Phosphorus Result Value Ref Range Phosphorus 6.3 (H) 2.3 - 4.8 mg/dL Problem List: Principal Problem: Infected prosthetic vascular graft, initial encounter ASSESSMENT & PLAN The patient is a 39 y.o.-year-old female with the following problems: LUE vasc graft site infection,S/p removal of infected AV graft from left arm and left axi lla with vein patch repair of left axillary artery. ---E. Faecalis from wound ---Will need at least 4 weeks antibiotics from 09/03--10/01 ---hopefully can be done with HD ---blood cultures NGTD Dictation software, VtagO, used which may contain error for similar sounding words even af ter review. Personal communication requested for any clarification. Portions of this chart may have been copied from previous notes for continuity of care purp sol Marroquin MD Infectious Diseases 09/06/2019 Abhijeet, Kaylen cason PA-C - 09/06/2019 9:36 AM PDTFormatting of this note might be different from the or iginal. [facility] Service: Vascular Surgery Progress Note Post-Op Day: 3 SUBJECTIVE Patient Summary: The patient is 39 y.o. female with significant past medical history of HTN and ESRD who presents with fever and chills with concern for infection of left arm AV graft. She initially had the left arm AV graft created using bovine carotid artery in May 06. The operation was complicated by wound dehiscence and patient taken to the OR on 05/26 for wound washout and vac placement. After few weeks of wound vac, patient was taken back t o the OR on 07/08 due to the graft being exposed for another washout and replacement of wound vac. Wound vac was eventually removed. Patient was seen in clinic on 08/24 for another wo und check and graft was seen exposed in the wound. Patient was scheduled for another wound washout, graft removal, and wound vac placement. However, on 08/26 patient was emergently t ransferred to [facility] for severe bleeding from left axilla. She was taken to the OR for carito t ligation. However, the graft was not removed and wound was closed. Patient now presents w ith erythema and pain around prior graft site. Therefore, vascular surgery was consulted. Events Overnight: POD 3. Pain controlled. She is emotionally upset due to problems wi th her spouse. OBJECTIVE Vital Signs: Vitals: 09/06/19 0848 BP: 140/87 Pulse: 71 Resp: 18 Temp: 36.7 C (98 F) Physical Exam Vitals:reviewed CONSTITUTIONAL: Conversant, well developed, NAD EYES: Anicteric sclerae, no lid drag, no proptosis RESP: Normal effort, regular, even, unlabored rate CV: No peripheral edema, rate regular SKIN: [place], warm, dry without rash/lesion MS: ROM not limited, no digital cyanosis, normal gait NEURO: Conversant, A&O times 3 PSYCH: appropriate affect, speech and tone, judgement and insight intact Vascular: Wound vac holding suction in left axilla. Mild erythema noted. Distal pulses int act. Labs: Lab Results Component Value Date WBC 8.65 09/06/2019 HGB 10.1 (L) 09/06/2019 HCT 29.7 (L) 09/06/2019 PLT 276 09/06/2019 CHOL 116 01/05/2019 TRIG 158 (H) 01/05/2019 HDL 45 01/05/2019 ALT <7 (L) 09/03/2019 AST 12 09/03/2019 NA 135 09/06/2019 K 4.5 09/06/2019 CL 99 09/06/2019 CREA 11.3 (H) 09/06/2019 BUN 47 (H) 09/06/2019 CO2 26 09/06/2019 TSH 3.40 10/27/2015 INR 1.1 01/05/2019 GLUF 71 05/26/2019 PROBLEM LIST Patient Active Problem List Diagnosis Date Noted POA Infected prosthetic vascular graft, initial encounter 09/03/2019 Unknown Wound, surgical, nonhealing, initial encounter 08/26/2019 Unknown AV graft malfunction, initial encounter 08/26/2019 Unknown S/P arteriovenous (AV) graft repair 08/26/2019 Unknown Leukocytosis 08/26/2019 Unknown Shock 08/26/2019 Unknown Bleeding from dialysis shunt 08/26/2019 Unknown Obesity (BMI 30-39.9) 08/26/2019 Unknown Infection of arteriovenous dialysis fistula, subsequent encounter 08/25/2019 Unknown ESRD on hemodialysis 08/25/2019 Unknown ESRD on dialysis 07/06/2019 Unknown Wound infection after surgery 07/06/2019 Unknown Anemia in ESRD (end-stage renal disease) 06/13/2019 Unknown Secondary hyperparathyroidism 06/13/2019 Unknown Peritonitis associated with peritoneal dialysis 02/15/2019 Unknown End-stage renal disease 02/01/2019 Unknown Abnormal EKG 01/05/2019 Unknown Diverticulitis 01/05/2019 Unknown Hyperphosphatemia 01/05/2019 Unknown Cold intolerance 04/03/2018 Unknown GERD with esophagitis 03/17/2018 Unknown Cyst of right ovary 09/07/2017 Unknown Gastroesophageal reflux disease without esophagitis 01/23/2017 Unknown Ovarian mass, right 10/25/2015 Unknown ASSESSMENT & PLAN Infection of previously ligated arteriovenous graft / Sepsis - POD 3. Wound vac holding suc tion. She will need wound vac dressing change today and surgical wound dressing replaced als o. Continue wound vac dressing changes every 3 days. ID following, continue IV antibiotics. Will need IV antibiotics upon discharge, will need to coordinate with HD center. Can be disc harged once wound vac and antibiotic plan finalized. Vascular will continue to follow. Code Status: Full code Man Jeronimo PA-C Vascular Surgery randin Cortez MD - 09/06/2019 8:04 AM PDT [facility] Service: Hospitalist Progress Note Pt: Ramona Reeves AGE/SEX: 39 y.o. female ROOM: [address] [place] [address]- : 1980 PCP: No Physician on file ADMIT DATE: 09/03/2019 TODAY'S DATE: 09/06/2019 Hospital Day/Hospital Course: LOS: 3 days Summary: Patient on hemodialysis for end-stage renal disease had infected AV graft for hemo dialysis access in left upper extremity. Patient underwent removal of this being treated wi th wound VAC and a biotics as per infectious disease. Tentative plan is for the patient to have at least 4 weeks of antibiotics and vancomycin with hemodialysis. Currently case manag ement is coordinating wound VAC and aftercare. SUBJECTIVE: Patient getting ready to start hemodialysis session now. Still tearful at times it seems g iven recent stressful information/news from home. . No chest pain, SOB, CARRILLO. No cough on recumbency. Had no orthopnea or PND. No Abdominal pa in, N/V or fever. No dizziness or lightheadedness. Scheduled Medications: heparin 1,500-6,000 Units Intracatheter After each dialysis heparin 5,000 Units Subcutaneous 2 times per day pantoprazole 40 mg Oral QAM AC sevelamer carbonate 1,600 mg Oral BID WC (bfast and lunch) sevelamer carbonate 2,400 mg Oral Daily with dinner vancomycin 1,000 mg Intravenous See Admin Instructions vancomycin per pharmacy Other Pharmacy Consult Continuous Infusions PRN Medications acetaminophen, calcium carbonate, diphenhydrAMINE, docusate sodium, HYDROmorphone, lidocain e, melatonin, metoclopramide, ondansetron, oxyCODONE, polyethylene glycol, senna Allergy: Allergies Allergen Reactions Adhesive & Tape Itching OBJECTIVE: Vitals: Patient Vitals for the past 24 hrs: BP Temp Temp src Pulse Resp SpO2 09/06/19 0406 136/74 36.8 C (98.2 F) Oral 78 17 96 % 09/05/19 2346 139/73 36.8 C (98.2 F) Oral 69 17 96 % 09/05/19 1906 157/81 36.8 C (98.2 F) Oral 69 17 98 % 09/05/19 1644 154/75 36.8 C (98.2 F) Oral 65 18 99 % 09/05/19 1127 147/73 36.9 C (98.4 F) Oral 72 20 98 % I&O Detailed Table: Intake/Output Summary (Last 24 hours) at 09/06/2019 0804 Last data filed at 09/06/2019 0600 Gross per 24 hour Intake 355 ml Output 0 ml Net 355 ml Patient Vitals for the past 96 hrs: Weight 09/05/19 0700 87.1 kg (192 lb) 09/04/19 0930 87.1 kg (192 lb) 09/03/19 2342 87.4 kg (192 lb 10.9 oz) 09/03/192009 89.5 kg (197 lb 5 oz) 09/03/19 1205 87.7 kg (193 lb 5.5 oz) Hemodynamics Last 24hrs: Physical Examination: Physical Exam Constitutional: She is oriented to person, place, and time. She appears well-developed and well-nourished. No distress. Eyes: No scleral icterus. Neck: No JVD present. Cardiovascular: Normal rate, regular rhythm and normal heart sounds. Pulmonary/Chest: Effort normal and breath sounds normal. No respiratory distress. She has n o wheezes. She has no rales. Abdominal: Soft. Bowel sounds are normal. She exhibits no distension. There is no tendernes s. There is no rebound and no guarding. Musculoskeletal: She exhibits edema. Neurological: She is alert and oriented to person, place, and time. Skin: Skin is warm and dry. She is not diaphoretic. Psychiatric: She has a normal mood and affect. Her behavior is normal. Judgment and thought content normal. Nursing note and vitals reviewed. LABS: Recent Labs Lab 09/06/19 0514 09/05/19 0526 09/04/19 0459 09/03/19 1332 WBC 8.65 11.09* 13.90* -- 13.78* HGB 10.1* 10.6* 10.6* < > 11.2* HCT 29.7* 32.5* 32.0* < > 34.8 PLT 276 288 252 -- 270 NA 135 136 133* -- 138 K 4.5 4.1 4.8 -- 5.5* CL 99 100 98* -- 102 CO2 26 27 30 -- 27 ANIONGAP 15 13 10 -- 15 BUN 47* 36* 18 -- 31* CREA 11.3* 8.7* 5.8* -- 9.05* GLU 78 91 117* -- 97 CALCIUM 8.6 9.4 8.7 -- 9.1 TP -- -- -- -- 6.7 ALBUMIN -- -- -- -- 4.0 PHOS 6.3* 4.8 3.3 -- -- MG 3.2* 3.0* 2.5* -- 3.2* BILI -- -- -- -- 0.2 AST -- -- -- -- 12 ALT -- -- -- -- <7* ALKPHOS -- -- -- -- 73 < > = values in this interval not displayed. No results for input(s): COLORUA, CLARITYUA, SPECGRAVU, LEUKEST, NITRITEUA, UUROB, URINEPRO TEIN, LABPH, BLOODUA, KETONESUA, BILIRUBINUA, GLUCOSEU, WBCUA, RBCUA, SQUAMEPIUA, BACTERIAUA , MUCUSUA, CRYSTALUA in the last 168 hours. @MICRO@ RADIOLOGY: No results found. PROBLEM LIST Principal Problem: Infected prosthetic vascular graft, initial encounter ASSESSMENT & PLAN JAZZY martinez graft site infection, S/p removal of infected AV graft from left arm and left axil la with vein patch repair of left axillary artery. Assessment: Gram-positive cocci seen from the wound culture at this point. Await further d etails. Blood culture currently in process negative so far but just collected yesterday in the evening. As per the infectious disease note likely 4 weeks of antibiotics. Patient rep orts having a wound VAC recently and await further recommendations as to whether or not this would resume. Vascular surgery following for the surgical management and wound and infecti ous disease following for antibiotics. 09/05: Continue with antibiotics and additionally post surgical management as per vascular and antibiotics per ID. 09/06: Antibiotics as per infectious disease. Reportedly will need at least 4 weeks of ant ibiotic therapy and tentative planning for vancomycin with hemodialysis. Also wound VAC. V ascular surgery following. ESRD on HD Assessment: The patient seems to be on Friday hemodialysis with her next s ession being Friday. Nephrology following. If patient is on vancomycin as a stand-alone IV medication fortunately this can be given with dialysis. 09/05: Dialysis as per nephrology. 09/06: Hemodialysis today. Brandin Cortez MD 09/06/2019 8:04 Greater than 35 minutes spent today overall in coordination of care, seeing and managing pa bakari, review of data, coordination with staff, coordination with involved consultants, and including any scheduled multidisciplinary rounding focused on the patient. Dictation software, VtagO, used which may contain error for similar sounding words even af ter review. Personal communication requested for any clarification. Portions of this chart may have been copied from previous notes for continuity of care purp ose Azeb Camara RN - 09/06/2019 6:23 AM PDTPt VSS, ambulating, voiding, medications for pain given, pt having some nausea PRN zofran given. Pt still tearful at times. Wound vac output 0 ml. Chart check complete Azeb Chamorro RN 09/06/19 @6:24 Linden Kincaid MD - 09/05/2019 5:17 PM PDT [facility] Service: NEPHROLOGY Progress Note Ramona Reeves 39 y.o. [id number] female No Physician on file Hospital Day: LOS: 2 days 39 y.o female admitted with infected Left arm AVG S/P Nephrology consulted for evaluation and management of ESRD ONSET Chronic severity severe Associated with fluid electrolyte acid base imbalances Assess need for hd/uf Seen and examined Feels ok, appetite good no cp, sob, n , v, d, fever, h/a Past Medical History: Diagnosis Date Acid reflux [...] normal sized kidneys. 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) Hypercalcemia 09/07/2017 Hyperphosphatemia [...] - REMOVAL; Surgeon: Qasim Pederson MD; Location: [facility] OR ; Service: Vascular; Laterality: N/A; Infected PD catheter removal DEBRIDEMENT Left 07/08/2019 Procedure: LEFT AXILLA WOUND DEBRIDEMENT, WASHOUT AND POSSIBLE WOUND VAC PLACEMENT; Surge on: Qasim Pederson MD; [place] [facility] [place] OTHER SURGICAL HISTORY Left 03/11/2019 AV FISTULA PLACEMENT - Procedure: AV FISTULA; Surgeon: Qasim Pederson MD; Location: [facility] OR; Service: Vascular; Laterality: Left; OTHER SURGICAL HISTORY HARDWARE PRESENT OTHER SURGICAL HISTORY Right 01/2019 chest wall OTHER SURGICAL HISTORY Left 05/06/2019 AV GRAFT CREATION - Procedure: AV GRAFT CREATION; Surgeon: Qasim Pederson MD; Location: [facility] MA[facility] OR; Service: Vascular; Laterality: Left; bovine carotid graft OTHER SURGICAL HISTORY Left 05/26/2019 WOUND VAC PLACEMENT/REPLACEMENT - Procedure: WOUND VAC - PLACEMENT - REPLACEMENT; Surgeon : Qasim Pederson MD; Location: [facility] MAIN OR; Service: Vascular; Laterality: Left; PERITONEAL CATHETER PLACEMENT/REMOVAL 10/28/2015 Procedure: LAPAROSCOPIC - PERITONEAL DIALYSIS CATH INSERTION; Surgeon: Mundo Ramos MD; Lo cation: [facility] MAIN OR; Service: Vascular; Laterality: N/A; UPPER GASTROINTESTINAL ENDOSCOPY 09/10/2017 Procedure: ESOPHAGOGASTRODUODENOSCOPY; Surgeon: Beena Peters MD; Location: [facility]; Service: Gastroenterology; Laterality: N/A; WISDOM TOOTH EXTRACTION Facility-Administered Medications Prior to Admission Medication Dose Route Frequency Provider Last Rate Last Dose HYDROcodone-acetaminophen (NORCO) 5-325 mg per tablet 1-2 tablet 1-2 tablet Oral Q4H P RN Man Jeronimo PA-C Medications Prior to Admission Medication Sig Dispense Refill clindamycin (CLEOCIN) 300 MG capsule Take 1 capsule by mouth every 6 hours for 10 days. Indications: Wound Infection After Surgery 40 capsule 0 omeprazole (PRILOSEC) 20 mg capsule Take [...] once daily in the evening with meals. Allergies Allergen Reactions Adhesive & Tape Itching Family History Problem Relation Age of Onset Cancer Maternal Grandmother breast ca Kidney disease Paternal Grandfather renal falure Other (see comment) Mother Other (see comments) - healthy Diabetes Father Breast cancer Maternal Grandmother Malig hypertherm Neg Hx Social History Socioeconomic History Marital status: Spouse [...] and is a former smoker. Scheduled Medications heparin 1,500-6,000 Units Intracatheter After each dialysis heparin 5,000 Units Subcutaneous 2 times per day pantoprazole 40 mg Oral QAM AC sevelamer carbonate 1,600 mg Oral BID WC (bfast and lunch) sevelamer carbonate 2,400 mg Oral Daily with dinner vancomycin 1,000 mg Intravenous See Admin Instructions vancomycin per pharmacy Other Pharmacy Consult Allergy: Allergies Allergen Reactions Adhesive & Tape Itching OBJECTIVE Vital Signs: BP 154/75 | Pulse 65 | Temp 36.8 C (98.2 F) (Oral) | Resp 18 | Ht 1.575 m (5' 2") | Wt 87.1 kg (192 lb) | LMP 08/10/2019 | SpO2 99% | ? No | BMI 35.12 kg/m I&O Detailed Table: I/O last 3 completed shifts: In: 1095 [P.O.:1095] Out: 2500 [Emesis/NG output:450; Other:50] Weight change: -0.609 kg (-1 lb 5.5 oz) Examination: APPEARANCE: The patient is lying in bed comfortably, answering appropriately VITALS: Reviewed as listed. HEENT: +ve pale conjunctiva LUNGS: Clear to auscultation bilaterally, no respiratory distress. HEART: S1, S2, no pericardial rub noted. ABDOMEN: Full, soft, no tenderness. EXTREMITIES: no pedal edema noted. NEUROLOGIC: No gross focal motor deficit noted. PSYCH: The patient is alert and oriented x 3, mood and affect looks ok R IJ Tunneled HD CATHTER FUNCTIONING WELL L ARM dressed LABS: Recent Results (from the past 24 hour(s)) ECG 12 lead Collection Time: 09/05/19 0:56 Result Value Ref Range INTERPRETATION TEXT Not Confirmed CBC no Differential Collection Time: 09/05/19 5:26 Result Value Ref Range WBC 11.09 (H) 3.80 - 11.00 K/uL RBC 3.63 (L) 3.70 - 5.10 M/uL Hemoglobin 10.6 (L) 11.3 - 15.5 g/dL Hematocrit 32.5 (L) 34.0 - 46.0 % MCV 89.5 80.0 - 100.0 fl MCH 29.2 27.0 - 34.0 pg MCHC 32.6 32.0 - 35.5 g/dL RDW-SD 45.1 37 - 53 fl Platelet Count 288 150 - 400 K/uL MPV 8.8 fl Basic Metabolic Panel Collection Time: 09/05/19 5:26 Result Value Ref Range Na 136 135 - 145 mmol/L K 4.1 3.5 - 4.9 mmol/L Cl 100 99 - 109 mmol/L CO2 27 23 - 32 mmol/L Anion Gap 13 5 - 20 mmol/L Glucose 91 65 - 99 mg/dL BUN 36 (H) 8 - 25 mg/dL Creatinine 8.7 (H) 0.50 - 1.00 mg/dL BUN/Creatinine Ratio 4 Calcium 9.4 8.5 - 10.5 mg/dL Estimated GFR 5 (L) >60 mL/min/1.73m2 Magnesium Collection Time: 09/05/19 5:26 Result Value Ref Range Magnesium 3.0 (H) 1.7 - 2.4 mg/dL Phosphorus Collection Time: 09/05/19 5:26 Result Value Ref Range Phosphorus 4.8 2.3 - 4.8 mg/dL IMAGING: Reviewed Patient's old records, imaging and labs were reviewed in detail and summarized. PROBLEM LIST Principal Problem: Infected prosthetic vascular graft, initial encounter ASSESSMENT & PLAN ESRD ON HD No need for hd/uf today from fluid electrolyte acid base balance point of view Assess daily need for hd/uf Plan for hd/ uf in am Orders in the chart Fluid restriction 1.2 litres/24 hours Strict I & O Daily RFP Renal diet Daily weights will help with subsequent hd with uf Dose all meds per protocol for ESRD on hd ANEMIA in ESRD Stable EPOGEN TO KEEP HGB 10-11 Lab Results Component Value Date HGB 10.6 (L) 09/05/2019 HGB 10.6 (L) 09/04/2019 HGB 10.5 (L) 09/03/2019 HGB 10.9 (L) 09/03/2019 HGB 11.2 (L) 09/03/2019 HYPERTENSION Labile WATCH BP CLOSELY DURING HOSPITALIZATION LOW NA DIET Will adjust BP meds according to BP readings BP Readings from Last 3 Encounters: 09/05/19 154/75 08/28/19 115/75 08/10/19 128/58 HYPERPHOSPHATEMIA Controlled LOW P DIET Continue PO4 BINDERS Renvela with meals Lab Results Component Value Date PHOS 4.8 09/05/2019 PHOS 3.3 09/04/2019 PHOS 4.4 08/28/2019 HYPOALBUMINEMIA INCREASE PROTEIN INTAKE No results found for: ALB L ARM AVG S/P Excision by Dr Ramos On abx per primary team CASE DISCUSSED IN DETAIL WITH PATIENT/ care team, ANSWERS ALL QUESTIONS IN DETAIL, VERBALIZ ES UNDERSTANDING Linden Alonzo MD 09/05/2019 No Physician on file Seen earlier and charting completed later Dictation software, VtagO, used which may contain error for similar sounding words even af ter review. Personal communication requested for any clarification. ee, Mundo Cantor MD - 09/05/2019 10:39 AM PDTPatie nt seen and evaluated. Left arm wound vac in place and pain controlled. Patient is distrau ght this morning due to bad news she received from home. Plan for dressing change with [facility] care nurse tomorrow. Will continue to follow along with you. Please feel free to call wi th any questions or concerns. Mundo Ramos MD ara, Azalia Buck MD - 09/05/2019 10:34 AM PDTFormatting of this note might be different fro m the original. [facility] Service: Infectious Diseases Progress Note Hospital Day: LOS: 2 days Post-Op Day: 2 Days Post-Op CC: follow up on infection and antibiotic therapy SUBJECTIVE/OVERNIGHT EVENTS The patient remains on treatment with antibiotics. No acute events over last 24 hours are reported. REVIEW OF SYSTEMS: patient very tearful and crying; "I just want to sleep." MEDICATIONS: Reviewed PHYSICAL EXAM Vital Signs: BP 150/77 | Pulse 62 | Temp 36.8 C (98.2 F) (Oral) | Resp 20 | Ht 1.575 m (5' 2") | Wt 87.1 kg (192 lb) | LMP 08/10/2019 | SpO2 99% | ? No | BMI 35.12 kg/m Focused exam shows: General exam: No distress, cooperative with exam. HEENT: sclera non-icteric, no visible oral thrush Extremities/MSK: No edema, no joint effusions; LUE extremity with wound vac Skin: No lesions, normal turgor Neurologic: Awake, cranial nerves intact. Follows commands. LABS: MICRO Culture, Blood [[id number]] Collected: 09/03/192015 Order Status: Completed Specimen: Blood Updated: 09/05/19 0521 Special Requests DIALYSIS PORT Special Requests Testing [place] at [facility] [place] [address];[place] [address] RESULT NO GROWTH 2 DAYS RESULT Testing performed at [facility], [address] [place] [id number] Comment: Testing performed at [facility], [address] [place] [address] Culture, Tissue, Smear, with Anaerobes [[id number]] Collected: 09/03/19 1723 Order Status: Completed Specimen: Tissue from Arm, Left Updated: 09/04/19 1800 Special Requests L ARM Special Requests Testing performed at [facility];[address] [place] [id number] Gram Stain Result -- 3+ WBC'S SEEN Gram Stain Result -- 4+ GRAM POSITIVE COCCI RESULT CULTURE IN PROGRESS RESULT Testing performed at [facility], [address] [place] [id number] Comment: Testing performed at [facility], [address] [place] [address] Culture, Wound, Smear, w/Anaerobe [[id number]] Collected: 09/03/19 1627 Order Status: Completed Specimen: Tissue from Arm, Left Updated: 09/04/19 1758 Special Requests LT ARM GRAFT SITE Special Requests Testing performed at [facility];[address] [place] [address] Gram Stain Result WBC'S SEEN Gram Stain Result GRAM POSITIVE COCCI Gram Stain Result STAIN PERFORMED ON CYTOSPIN Gram Stain Result Testing performed at [facility];[address] [place] [id number] RESULT CULTURE IN PROGRESS RESULT Testing performed at [facility], [address] [place] [id number] Comment: Testing performed at [facility], [address] [place] [address] All labs were reviewed.Data: Recent Results (from the past 24 hour(s)) ECG 12 lead Result Value Ref Range INTERPRETATION TEXT Not Confirmed CBC no Differential Result Value Ref Range WBC 11.09 (H) 3.80 - 11.00 K/uL RBC 3.63 (L) 3.70 - 5.10 M/uL Hemoglobin 10.6 (L) 11.3 - 15.5 g/dL Hematocrit 32.5 (L) 34.0 - 46.0 % MCV 89.5 80.0 - 100.0 fl MCH 29.2 27.0 - 34.0 pg MCHC 32.6 32.0 - 35.5 g/dL RDW-SD 45.1 37 - 53 fl Platelet Count 288 150 - 400 K/uL MPV 8.8 fl Basic Metabolic Panel Result Value Ref Range Na 136 135 - 145 mmol/L K 4.1 3.5 - 4.9 mmol/L Cl 100 99 - 109 mmol/L CO2 27 23 - 32 mmol/L Anion Gap 13 5 - 20 mmol/L Glucose 91 65 - 99 mg/dL BUN 36 (H) 8 - 25 mg/dL Creatinine 8.7 (H) 0.50 - 1.00 mg/dL BUN/Creatinine Ratio 4 Calcium 9.4 8.5 - 10.5 mg/dL Estimated GFR 5 (L) >60 mL/min/1.73m2 Magnesium Result Value Ref Range Magnesium 3.0 (H) 1.7 - 2.4 mg/dL Phosphorus Result Value Ref Range Phosphorus 4.8 2.3 - 4.8 mg/dL Problem List: Principal Problem: Infected prosthetic vascular graft, initial encounter ASSESSMENT & PLAN The patient is a 39 y.o.-year-old female with the following problems: LUE vasc graft site infection, S/p removal of infected AV graft from left arm and left axil la with vein patch repair of left axillary artery. ---GPC so far from prelim cultures ---Will need at least 4 weeks antibiotics that hopefully can be done with HD ESRD on HD Adjustment disorder; patient very emotional over some bad news Dictation software, VtagO, used which may contain error for similar sounding words even af ter review. Personal communication requested for any clarification. Portions of this chart may have been copied from previous notes for continuity of care purp sol Taylorales, MD Infectious Diseases 09/05/2019 Brandin Kennedy MD - 09/05/2019 8:19 AM PDTFormatting of this note might be different from the or iginal. [facility] Service: Hospitalist Progress Note Pt: Ramona Reeves AGE/SEX: 39 y.o. female ROOM: [address] [place] [address] : 1980 PCP: No Physician on file ADMIT DATE: 09/03/2019 TODAY'S DATE: 09/05/2019 Hospital Day/Hospital Course: LOS: 2 days SUBJECTIVE: Patient reports some discomfort in her arm seems to be improved with pain medication she carrillo s some stressful news given to her due to personal issues presently family. Patient has bee n tearful throughout the day and is been crying quite a bit as per nursing . No chest pain, SOB, CARRILLO. No cough on recumbency. Had no orthopnea or PND. No Abdominal pa in, N/V or fever. No dizziness or lightheadedness. Scheduled Medications: heparin 1,500-6,000 Units Intracatheter After each dialysis heparin 5,000 Units Subcutaneous 2 times per day pantoprazole 40 mg Oral QAM AC sevelamer carbonate 1,600 mg Oral BID WC (bfast and lunch) sevelamer carbonate 2,400 mg Oral Daily with dinner vancomycin 1,000 mg Intravenous See Admin Instructions vancomycin per pharmacy Other Pharmacy Consult Continuous Infusions PRN Medications acetaminophen, calcium carbonate, docusate sodium, HYDROmorphone, lidocaine, melatonin, met oclopramide, ondansetron, oxyCODONE, polyethylene glycol, senna Allergy: Allergies Allergen Reactions Adhesive & Tape Itching OBJECTIVE: Vitals: Patient Vitals for the past 24 hrs: BP Temp Temp src Pulse Resp SpO2 Height Weight 09/05/19 0749 150/77 36.8 C (98.2 F) Oral 62 20 99 % 09/05/19 0700 1.575 m (5' 2") 87.1 kg (192 lb) 09/05/19 0423 140/78 36.5 C (97.7 F) Oral 103 20 95 % 09/04/19 2310 131/67 36.7 C (98.1 F) Oral 65 18 95 % 09/04/19 1900 131/63 36.6 C (97.8 F) Oral 71 19 97 % 09/04/19 1542 116/60 36.8 C (98.2 F) Oral 18 09/04/19 1116 131/73 36.8 C (98.3 F) Oral 18 09/04/19 0930 87.1 kg (192 lb) I&O Detailed Table: Intake/Output Summary (Last 24 hours) at 09/05/2019 0819 Last data filed at 09/04/2019 1732 Gross per 24 hour Intake 1095 ml Output 150 ml Net 945 ml Patient Vitals for the past 96 hrs: Weight 09/05/19 0700 87.1 kg (192 lb) 09/04/19 0930 87.1 kg (192 lb) 09/03/19 2342 87.4 kg (192 lb 10.9 oz) 09/03/192009 89.5 kg (197 lb 5 oz) 09/03/19 1205 87.7 kg (193 lb 5.5 oz) Hemodynamics Last 24hrs: Physical Examination: Physical Exam Constitutional: She is oriented to person, place, and time. She appears well-developed and well-nourished. No distress. Eyes: No scleral icterus. Neck: No JVD present. Cardiovascular: Normal rate, regular rhythm and normal heart sounds. Pulmonary/Chest: Effort normal and breath sounds normal. No respiratory distress. She has n o wheezes. She has no rales. Abdominal: Soft. Bowel sounds are normal. She exhibits no distension. There is no tendernes s. There is no rebound and no guarding. Musculoskeletal: She exhibits edema. Neurological: She is alert and oriented to person, place, and time. Skin: Skin is warm and dry. She is not diaphoretic. Psychiatric: She has a normal mood and affect. Her behavior is normal. Judgment and thought content normal. Nursing note and vitals reviewed. LABS: Recent Labs Lab 09/05/19 0526 09/04/19 0459 09/03/19 1817 09/03/19 1332 WBC 11.09* 13.90* -- -- 13.78* HGB 10.6* 10.6* 10.5* < > 11.2* HCT 32.5* 32.0* 31* < > 34.8 PLT 288 252 -- -- 270 NA 136 133* -- -- 138 K 4.1 4.8 -- -- 5.5* CL 100 98* -- -- 102 CO2 27 30 -- -- 27 ANIONGAP 13 10 -- -- 15 BUN 36* 18 -- -- 31* CREA 8.7* 5.8* -- -- 9.05* GLU 91 117* -- -- 97 CALCIUM 9.4 8.7 -- -- 9.1 TP -- -- -- -- 6.7 ALBUMIN -- -- -- -- 4.0 PHOS 4.8 3.3 -- -- -- MG 3.0* 2.5* -- -- 3.2* BILI -- -- -- -- 0.2 AST -- -- -- -- 12 ALT -- -- -- -- <7* ALKPHOS -- -- -- -- 73 < > = values in this interval not displayed. No results for input(s): COLORUA, CLARITYUA, SPECGRAVU, LEUKEST, NITRITEUA, UUROB, URINEPRO TEIN, LABPH, BLOODUA, KETONESUA, BILIRUBINUA, GLUCOSEU, WBCUA, RBCUA, SQUAMEPIUA, BACTERIAUA , MUCUSUA, CRYSTALUA in the last 168 hours. @MICRO@ RADIOLOGY: No results found. PROBLEM LIST Principal Problem: Infected prosthetic vascular graft, initial encounter ASSESSMENT & PLAN JAZZY martinez graft site infection, S/p removal of infected AV graft from left arm and left axil la with vein patch repair of left axillary artery. Assessment: Gram-positive cocci seen from the wound culture at this point. Await further d etails. Blood culture currently in process negative so far but just collected yesterday in the evening. As per the infectious disease note likely 4 weeks of antibiotics. Patient rep orts having a wound VAC recently and await further recommendations as to whether or not this would resume. Vascular surgery following for the surgical management and wound and infecti ous disease following for antibiotics. 09/05: Continue with antibiotics and additionally post surgical management as per vascular and antibiotics per ID. ESRD on HD Assessment: The patient seems to be on Friday hemodialysis with her next s ession being Friday. Nephrology following. If patient is on vancomycin as a stand-alone IV medication fortunately this can be given with dialysis. 09/05: Dialysis as per nephrology. Brandin Cortez MD 09/05/2019 8:19 Greater than 35 minutes spent today overall in coordination of care, seeing and managing pa tient, review of data, coordination with staff, coordination with involved consultants, and including any scheduled multidisciplinary rounding focused on the patient. Dictation software, VtagO, used which may contain error for similar sounding words even af ter review. Personal communication requested for any clarification. Portions of this chart may have been copied from previous notes for continuity of care purp ose Azeb Camara RN - 09/05/2019 6:22 AM PDTPt VSS, ambulating SBA, anuric, medications for pain given and nausea. Entered pts room HR was in 160s pt was given very devastating news over the phone through a family member around 0030, pt was unable to calm down and very emotional, wellness managermichelle moy MD notified and 1 mg ativan given IV. Wound vac in place. Chart check complete Azeb Chamorro RN 09/05/19 @6:26 Linden Kincaid MD - 09/04/2019 7:30 PM PDT [facility] Service: NEPHROLOGY Progress Note Ramona Reeves 39 y.o. [id number] female No Physician on file Hospital Day: LOS: 1 day 39 y.o.female with PMHESRD on HD TIW, HTN, Secondary HyperparathyroidismPresented to hospital with fever and chills along with swelling / redness at site of Left arm AVG. Nephrology consulted for evaluation and management ofESRD ONSET Chronic severity severe Associated with fluid electrolyte acid base imbalances Assess need for hd/uf Seen and examined Feels fine , appetite good No cp, sob, n, v, d, fever Past Medical History: Diagnosis Date Acid reflux [...] normal sized kidneys. 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) Hypercalcemia 09/07/2017 Hyperphosphatemia [...] - REMOVAL; Surgeon: Qasim Pederson MD; Location: [facility] MA[facility] OR ; Service: Vascular; Laterality: N/A; Infected PD catheter removal DEBRIDEMENT Left 07/08/2019 Procedure: LEFT AXILLA WOUND DEBRIDEMENT, WASHOUT AND POSSIBLE WOUND VAC PLACEMENT; Surge on: Qasim Pederson MD; [place] [facility] [place] OTHER SURGICAL HISTORY Left 03/11/2019 AV FISTULA PLACEMENT - Procedure: AV FISTULA; Surgeon: Qasim Pederson MD; Location: [facility] OR; Service: Vascular; Laterality: Left; OTHER SURGICAL HISTORY HARDWARE PRESENT OTHER SURGICAL HISTORY Right 01/2019 chest wall OTHER SURGICAL HISTORY Left 05/06/2019 AV GRAFT CREATION - Procedure: AV GRAFT CREATION; Surgeon: Qasim Pederson MD; Location: [facility] MA[facility] OR; Service: Vascular; Laterality: Left; bovine carotid graft OTHER SURGICAL HISTORY Left 05/26/2019 WOUND VAC PLACEMENT/REPLACEMENT - Procedure: WOUND VAC - PLACEMENT - REPLACEMENT; Surgeon : Qasim Pederson MD; Location: [facility] OR; Service: Vascular; Laterality: Left; PERITONEAL CATHETER PLACEMENT/REMOVAL 10/28/2015 Procedure: LAPAROSCOPIC - PERITONEAL DIALYSIS CATH INSERTION; Surgeon: Mundo Ramos MD; Lo cation: [facility] OR; Service: Vascular; Laterality: N/A; UPPER GASTROINTESTINAL ENDOSCOPY 09/10/2017 Procedure: ESOPHAGOGASTRODUODENOSCOPY; Surgeon: Beena Peters MD; Location: [facility]; Service: Gastroenterology; Laterality: N/A; WISDOM TOOTH EXTRACTION Facility-Administered Medications Prior to Admission Medication Dose Route Frequency Provider Last Rate Last Dose HYDROcodone-acetaminophen (NORCO) 5-325 mg per tablet 1-2 tablet 1-2 tablet Oral Q4H P RN Man Jeronimo PA-C Medications Prior to Admission Medication Sig Dispense Refill clindamycin (CLEOCIN) 300 MG capsule Take 1 capsule by mouth every 6 hours for 10 days. Indications: Wound Infection After Surgery 40 capsule 0 omeprazole (PRILOSEC) 20 mg capsule Take [...] once daily in the evening with meals. Allergies Allergen Reactions Adhesive & Tape Itching Family History Problem Relation Age of Onset Cancer Maternal Grandmother breast ca Kidney disease Paternal Grandfather renal falure Other (see comment) Mother Other (see comments) - healthy Diabetes Father Breast cancer Maternal Grandmother Malig hypertherm Neg Hx Social History Socioeconomic History Marital status: Spouse [...] and is a former smoker. Scheduled Medications heparin 1,500-6,000 Units Intracatheter After each dialysis heparin 5,000 Units Subcutaneous 2 times per day pantoprazole 40 mg Oral QAM AC sevelamer carbonate 1,600 mg Oral BID WC (bfast and lunch) sevelamer carbonate 2,400 mg Oral Daily with dinner vancomycin 1,000 mg Intravenous See Admin Instructions vancomycin per pharmacy Other Pharmacy Consult Continuous Infusions PRN Medications Allergy: Allergies Allergen Reactions Adhesive & Tape Itching OBJECTIVE Vital Signs: BP 131/63 | Pulse 71 | Temp 36.6 C (97.8 F) (Oral) | Resp 19 | Wt 87.1 kg (192 lb) | LMP 08/10/2019 | SpO2 97% | ? No | BMI 35.12 kg/m I&O Detailed Table: I/O last 3 completed shifts: In: 1575 [P.O.:1095; I.V.:480] Out: 2500 [Emesis/NG output:450; Other:50] Weight change: Examination: APPEARANCE: The patient is a pleasant lying in bed in no distress VITALS: Reviewed as listed. HEAD: NC/AT. LUNGS: Clear to auscultation bilaterally. HEART: S1, S2, no pericardial rub noted. ABDOMEN: Full, soft, no tenderness. EXTREMITIES: no pedal edema noted. NEUROLOGIC: No gross focal motor deficit noted. PSYCH: The patient is alert and oriented x 3, mood and affect looks ok KAITLIN / Axillary area dressed R IJ Tunneled hd catheter functioning well LABS: Recent Results (from the past 24 hour(s)) CBC no Differential Collection Time: 10/26/19 4:59 Result Value Ref Range WBC 13.90 (H) 3.80 - 11.00 K/uL RBC 3.59 (L) 3.70 - 5.10 M/uL Hemoglobin 10.6 (L) 11.3 - 15.5 g/dL Hematocrit 32.0 (L) 34.0 - 46.0 % MCV 88.9 80.0 - 100.0 fl MCH 29.5 27.0 - 34.0 pg MCHC 33.2 32.0 - 35.5 g/dL RDW-SD 45.1 37 - 53 fl Platelet Count 252 150 - 400 K/uL MPV 8.7 fl Basic Metabolic Panel Collection Time: 09/04/19 4:59 Result Value Ref Range Na 133 (L) 135 - 145 mmol/L K 4.8 3.5 - 4.9 mmol/L Cl 98 (L) 99 - 109 mmol/L CO2 30 23 - 32 mmol/L Anion Gap 10 5 - 20 mmol/L Glucose 117 (H) 65 - 99 mg/dL BUN 18 8 - 25 mg/dL Creatinine 5.8 (H) 0.50 - 1.00 mg/dL BUN/Creatinine Ratio 3 Calcium 8.7 8.5 - 10.5 mg/dL Estimated GFR 8 (L) >60 mL/min/1.73m2 Magnesium Collection Time: 09/04/19 4:59 Result Value Ref Range Magnesium 2.5 (H) 1.7 - 2.4 mg/dL Phosphorus Collection Time: 09/04/19 4:59 Result Value Ref Range Phosphorus 3.3 2.3 - 4.8 mg/dL Patient's old records, imaging and labs were reviewed in detail and summarized. PROBLEM LIST Principal Problem: Infected prosthetic vascular graft, initial encounter ASSESSMENT & PLAN ESRD ON HD No need for hd/uf today from fluid electrolyte acid base balance point of view Assess daily need for hd/uf Orders in the chart Fluid restriction 1.2 litres/24 hours Strict I & O Daily RFP Renal diet Daily weights will help with subsequent hd with uf Dose all meds per protocol for ESRD on hd ANEMIA in ESRD Stable EPOGEN TO KEEP HGB 10-11 Lab Results Component Value Date HGB 10.6 (L) 09/04/2019 HGB 10.5 (L) 09/03/2019 HGB 10.9 (L) 09/03/2019 HGB 11.2 (L) 09/03/2019 HGB 11.2 (L) 08/28/2019 HYPERTENSION Controlled WATCH BP CLOSELY DURING HOSPITALIZATION LOW NA DIET Will adjust BP meds according to BP readings BP Readings from Last 3 Encounters: 09/04/19 131/63 08/28/19 115/75 08/10/19 128/58 HYPERPHOSPHATEMIA Controlled LOW P DIET PO4 BINDERS Renvela with meals Lab Results Component Value Date PHOS 3.3 09/04/2019 PHOS 4.4 08/28/2019 PHOS 5.7 (H) 08/27/2019 HYPOALBUMINEMIA INCREASE PROTEIN INTAKE No results found for: ALB L ARM AVG Infected abx per primary team Vasc sx Dr Ramos consulted S/p removal of left infected AVG CASE DISCUSSED IN DETAIL WITH PATIENT/ care team, ANSWERS ALL QUESTIONS IN DETAIL, VERBALIZ ES UNDERSTANDING Linden Alonzo MD 09/04/2019 No Physician on file Seen earlier and charting completed later Dictation software, VtagO, used which may contain error for similar sounding words even af ter review. Personal communication requested for any clarification. Yasmeen Carter RN - 09/04/2019 4:47 PM PD TPatient progressing with Plan of Care as noted. Will continue to educate and encourage prog ression of care plan goals. No falls or hospital acquired injury to report. Dressing remains intact; no bleeding noted. Woundvac output from this shift is 50ml. End of shift chart review completed to the best of my knowledge. Yasmeen Clemons RN 09/04/2019 16:47 Adenike Garsia RPH - 09/04/2019 10:20 AM PDTClinical Pharmacy Note: Vancomycin Day 2 Scr = 5.8 WBC = 13.9 Current regimen Vanco 1500mg (17.2 mg/kg) x1 loading dose (done 09/03), then during last ho ur or upon completion of HD. Patient currently on MWF HD schedule. No HD scheduled for today. INDICATION: AV graft infection Pharmacist: ADENIKE FAN RPH Patient is on MWF HD session 10: 20 AM Brandin Green MD - 09/04/2019 8:51 AM PDTFormatting of this note might be dif ferent from the original. [facility] Service: Hospitalist Progress Note Pt: Ramona Reeves AGE/SEX: 39 y.o. female ROOM: [address] [place] [address] : 1980 PCP: No Physician on file ADMIT DATE: 09/03/2019 TODAY'S DATE: 09/04/2019 Hospital Day/Hospital Course: LOS: 1 day SUBJECTIVE: Patient seen and examined. Complaint of some swelling in her left arm postoperatively and s ome discomfort in that area periodically. . No chest pain, SOB, CARRILLO. No cough on recumbency. Had no orthopnea or PND. No Abdominal pa in, N/V or fever. No dizziness or lightheadedness. Scheduled Medications: heparin 1,500-6,000 Units Intracatheter After each dialysis heparin 5,000 Units Subcutaneous 2 times per day pantoprazole 40 mg Oral QAM AC sevelamer carbonate 1,600 mg Oral BID WC (bfast and lunch) sevelamer carbonate 2,400 mg Oral Daily with dinner vancomycin 1,000 mg Intravenous See Admin Instructions vancomycin per pharmacy Other Pharmacy Consult Continuous Infusions PRN Medications acetaminophen, calcium carbonate, docusate sodium, HYDROmorphone, melatonin, metoclopramide , ondansetron, oxyCODONE, polyethylene glycol, senna Allergy: Allergies Allergen Reactions Adhesive & Tape Itching OBJECTIVE: Vitals: Patient Vitals for the past 24 hrs: BP Temp Temp src Pulse Resp SpO2 Weight 09/04/19 0800 115/58 37.1 C (98.8 F) Oral 18 09/04/19 0430 113/59 36.9 C (98.5 F) Oral 76 18 96 % 09/04/19 0300 64 98 % 09/04/19 0200 64 97 % 09/04/19 0100 70 98 % 09/04/19 0055 117/56 66 18 99 % 09/04/19 0000 64 100 % 09/03/19 2355 110/64 36.8 C (98.3 F) Oral 60 18 100 % 09/03/19 2342 112/64 64 18 100 % 87.4 kg (192 lb 10.9 oz) 09/03/19 2330 121/62 60 18 100 % 09/03/19 2315 116/62 68 18 100 % 09/03/19 2300 116/58 66 18 100 % 09/03/19 2245 121/60 72 18 100 % 09/03/19 2230 128/69 64 18 100 % 09/03/19 2215 147/80 78 18 97 % 09/03/19 2200 137/80 76 18 97 % 09/03/19 2145 136/77 64 18 95 % 09/03/19 2130 125/72 62 18 100 % 09/03/19 2115 126/72 60 18 99 % 09/03/19 2100 141/79 60 18 100 % 09/03/19 2045 137/81 66 16 100 % 09/03/192029 109/59 74 16 97 % 09/03/192011 129/60 62 18 99 % 09/03/192009 89.5 kg (197 lb 5 oz) 09/03/191957 128/75 36.8 C (98.3 F) Oral 61 18 99 % 09/03/191952 128/75 36.8 C (98.3 F) Oral 57 20 100 % 09/03/19 193 122/61 62 28 99 % 09/03/19 1930 120/62 60 16 98 % 09/03/19 1925 115/62 61 16 94 % 09/03/19 1920 127/63 65 19 98 % 09/03/19 1915 122/61 61 12 95 % 09/03/19 1910 123/62 60 11 97 % 09/03/19 1905 124/64 60 14 94 % 09/03/19 1900 126/72 76 22 94 % 09/03/19 1855 124/65 61 20 95 % 09/03/19 1850 120/62 66 11 95 % 09/03/19 1845 122/65 63 20 95 % 09/03/19 1840 121/62 67 12 95 % 09/03/19 1835 122/64 66 12 96 % 09/03/19 1830 123/65 63 17 100 % 09/03/19 1825 119/58 59 8 100 % 09/03/19 1820 140/74 67 12 100 % 09/03/19 1815 140/74 65 14 100 % 09/03/19 1810 159/78 76 10 100 % 09/03/19 1805 157/77 68 14 100 % 09/03/19 1800 153/70 69 20 100 % 09/03/19 1755 155/70 82 30 100 % 09/03/19 1750 152/78 86 20 (!) 78 % 09/03/19 1748 147/83 36.6 C (97.9 F) Oral 88 15 09/03/19 1525 113/62 37.6 C (99.6 F) 75 16 99 % 09/03/19 1324 134/78 79 16 100 % 09/03/19 1205 113/78 37.2 C (99 F) Oral 73 18 100 % 87.7 kg (193 lb 5.5 oz) I&O Detailed Table: Intake/Output Summary (Last 24 hours) at 09/04/2019 0852 Last data filed at 09/04/2019 0430 Gross per 24 hour Intake 480 ml Output 2350 ml Net -1870 ml Patient Vitals for the past 96 hrs: Weight 09/03/19 2342 87.4 kg (192 lb 10.9 oz) 09/03/192009 89.5 kg (197 lb 5 oz) 09/03/19 1205 87.7 kg (193 lb 5.5 oz) Hemodynamics Last 24hrs: Physical Examination: Physical Exam Constitutional: She is oriented to person, place, and time. She appears well-developed and well-nourished. No distress. Eyes: No scleral icterus. Neck: No JVD present. Cardiovascular: Normal rate, regular rhythm and normal heart sounds. Pulmonary/Chest: Effort normal and breath sounds normal. No respiratory distress. She has n o wheezes. She has no rales. Abdominal: Soft. Bowel sounds are normal. She exhibits no distension. There is no tendernes s. There is no rebound and no guarding. Musculoskeletal: She exhibits edema. Neurological: She is alert and oriented to person, place, and time. Skin: Skin is warm and dry. She is not diaphoretic. Psychiatric: She has a normal mood and affect. Her behavior is normal. Judgment and thought content normal. Nursing note and vitals reviewed. LABS: Recent Labs Lab 09/04/19 0459 09/03/19181609/03/19 1630 09/03/19 1332 WBC 13.90* -- -- 13.78* HGB 10.6* 10.5* 10.9* 11.2* HCT 32.0* 31* 32* 34.8 PLT 252 -- -- 270 NA 133* -- -- 138 K 4.8 -- -- 5.5* CL 98* -- -- 102 CO2 30 -- -- 27 ANIONGAP 10 -- -- 15 BUN 18 -- -- 31* CREA 5.8* -- -- 9.05* GLU 117* -- -- 97 CALCIUM 8.7 -- -- 9.1 TP -- -- -- 6.7 ALBUMIN -- -- -- 4.0 PHOS 3.3 -- -- -- MG 2.5* -- -- 3.2* BILI -- -- -- 0.2 AST -- -- -- 12 ALT -- -- -- <7* ALKPHOS -- -- -- 73 No results for input(s): COLORUA, CLARITYUA, SPECGRAVU, LEUKEST, NITRITEUA, UUROB, URINEPRO TEIN, LABPH, BLOODUA, KETONESUA, BILIRUBINUA, GLUCOSEU, WBCUA, RBCUA, SQUAMEPIUA, BACTERIAUA , MUCUSUA, CRYSTALUA in the last 168 hours. @MICRO@ RADIOLOGY: No results found. PROBLEM LIST Principal Problem: Infected prosthetic vascular graft, initial encounter ASSESSMENT & PLAN JAZZY martinez graft site infection, S/p removal of infected AV graft from left arm and left axil la with vein patch repair of left axillary artery. Assessment: Gram-positive cocci seen from the wound culture at this point. Await further d etails. Blood culture currently in process negative so far but just collected yesterday in the evening. As per the infectious disease note likely 4 weeks of antibiotics. Patient rep orts having a wound VAC recently and await further recommendations as to whether or not this would resume. Vascular surgery following for the surgical management and wound and infecti ous disease following for antibiotics. ESRD on HD Assessment: The patient seems to be on Friday hemodialysis with her next s ession being Friday. Nephrology following. If patient is on vancomycin as a stand-alone IV medication fortunately this can be given with dialysis. Brandin Cortez MD 09/04/2019 8:52 Greater than 35 minutes spent today overall in coordination of care, seeing and managing pa bakari, review of data, coordination with staff, coordination with involved consultants, and including any scheduled multidisciplinary rounding focused on the patient. Dictation software, VtagO, used which may contain error for similar sounding words even af ter review. Personal communication requested for any clarification. Portions of this chart may have been copied from previous notes for continuity of care purp ose ee, Mundo Cantor MD - 09/04/2019 7:30 AM PDTS/p removal of infected AV graft from left arm and left axilla with vein patch repair of left axillary artery. Wound vac to suction and pain better controlled this AM with pain meds. Plan for dressing change with wound care tomorrow. If she tolerat es dressing changes, can be discharged with home wound vac changes. Awaiting final culture and sensitivities for appropriate intermodal dispatcher antibiotic coverage. Please feel free to call w ith any questions or concerns. Mundo Ramos MD Panda Gan, [facility] - 09/04/2019 12:57 AM PDTFormatting of this note might be different from the o riginal. Clinical Pharmacy Note: Vancomycin Day 1 Referring Provider: Dr. Marroquin Subjective / Objective Ramona Reeves 39 y.o. female Height: 157.5 cm Weight: 87.4 kg Presentation: Left arm pain over AV graft Vitals Vitals with Comments 09/03/2019 09/03/2019 09/03/2019 09/03/2019 SYSTOLIC 116 121 112 110 DIASTOLIC 62 62 64 64 Pulse 68 60 64 60 Temp - - - 98.3 Resp 18 18 18 18 SPO2 100 100 100 100 Microbiology Results (72 hrs) Procedure Component Value Units Date/Time Culture, Blood [[id number]] Collected: 09/03/192015 Order Status: Sent Lab Status: In process Updated: 09/03/192217 Specimen: Blood Culture, Tissue, Smear, with Anaerobes [[id number]] Collected: 09/03/19 1723 Order Status: Completed Lab Status: Preliminary result Updated: 09/03/19 2242 Specimen: Tissue from Arm, Left Special Requests L ARM Special Requests Testing performed at [facility] [place] [address] Gram Stain Result 3+ WBC'S SEEN Gram Stain Result 4+ GRAM POSITIVE COCCI Gram Stain Result Testing performed at [facility], [address] [place] [address] RESULT PENDING Comment: Testing performed at [facility], [address] [place] [id number] Culture, Wound, Smear, w/Anaerobe [[id number]] Collected: 09/03/19 1627 Order Status: Completed Lab Status: Preliminary result Updated: 09/03/19 1834 Specimen: Tissue from Arm, Left Special Requests LT ARM GRAFT SITE Gram Stain Result WBC'S SEEN Gram Stain Result GRAM POSITIVE COCCI Gram Stain Result STAIN PERFORMED ON CYTOSPIN Gram Stain Result Testing performed at [facility];[address] [place] [id number] RESULT PENDING Comment: Testing performed at [facility], [address] [place] [address] Labs Component Value Date/Time WBC 13.78 (H) 09/03/2019 1332 WBC 9.89 08/28/2019 0402 WBC 13.66 (H) 08/27/2019 0414 Additional antibiotics ordered: none Vanco admin times and level times DATE 09/03 dose/time dose/time 1500 mg @ 1350 Assessment / Plan Indication: AV graft infection Patient on hemodialysis with usual schedule MWF - will dose Vanacomycin per ESRD / Hemodial ysis Protocol. First dose of Vancomycin 1500 mg was given 09/03 at 1350. Will continue with Vancomycin 100 0 mg during the last hour of each HD session (or immediately following HD). Trough monitoring is not necessary at this time. Pharmacy will order levels (with goal 15 to 20 mcg/mL) if deemed necessary and will adjust dose accordingly. RYAN BUSTOS RPH, Pharmacist 09/04/2019 0:47 Gwyn Gan RPH - 09/04/2019 12:45 AM PDTClinical Pharmacy Note: Renal Monitoring Height: 157.5 cm Weight: 87.4 kg Patient is on hemodialysis - Usual schedule: Mon-Fri-Fri Will order the following dosage adjustments: Metoclopramide 5 mg PO Q4H prn Pharmacy will continue to follow and adjust medications as needed. Thank you. Ryan Bustos, PharmD 09/04/2019 0:44 Electronically signed by Ryan Bustos [facility] at 09/04/2019 12:45 AM Neal Panda RN - 09/03/2019 3:00 PM PDTInformed MD Ramos of patient potassium 5.5 and Mag 3.2. Electron ically signed by Neal Dietz RN at 09/03/2019 3:01 PM PDTdocumented in this encounter H&P Notes Hilda Haddad, - 09/03/2019 1:44 PM PDTFormatting of this note might be different fr om the original. HISTORY AND PHYSICAL Patient Name: Ramona Reeves Date of Admission: 09/03/2019 Referring Provider: Mikey Longoria, [facility] ED Chief Complaint: Left arm pain over AV graft HPI: Mrs. Reeves is a very sweet 39 y.o. female with significant past medical history of HTN an d ESRD who presents with fever and chills with concern for infection of left arm AV graft. She initially had the left arm AV graft created using bovine carotid artery in May 06 and p rocedure was complicated by non healing requiring wound vac placement. She presented to [facility] on 08/26/19 from wound care clinic for bleeding from the axilla. She was transferred to [facility] and admitted 08/26 for ligation of left axillary AV graft with Dr. Pederson. She was discharged on 08/28/19. Yesterday 09/02 she developed erythema and pain in her graft site. This morning she had progressive tenderness and distention of arm and she presented to the ED. Dr. Richard ferris consulted for urgent surgical evaluation. Plan for OR today. She has been receiving HD through a tunneled right sided HD cath. Nephrology Dr. Alonzo consu lted for HD while inpatient. PMH: Past Medical History: Diagnosis Date Acid reflux [...] normal sized kidneys. 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) Hypercalcemia 09/07/2017 Hyperphosphatemia 10/28/2015 Hypertension Hypocalcemia 10/28/2015 Hypokalemia 06/04/2017 Itching 10/28/2015 Metabolic acidosis 10/28/2015 Obesity Other chronic pain due to peritoneal dialysis infection Peritonitis associated with peritoneal dialysis (HCC) 01/24/2017 Peritonitis due to infected peritoneal dialysis catheter (HCC) 12/08/2018 Range of motion deficit left arm Renal insufficiency Secondary hyperparathyroidism (HCC) Uremia 10/28/2015 ACTIVE COMORBIDITIES: Active comorbid conditions include: - hypertension; essential - diverticular disease - GERD; without esophagitis - obesity; due to excess calories; BMI (30-39) PSH: Past Surgical History: Procedure Laterality Date ABDOMEN SURGERY 10/27/2016 PD cath ARTERIAL BYPASS SURGRY AV FISTULA REPAIR N/A 08/26/2019 Procedure: REVISION LEFT AXILLARY AVG; WILL NEED C-ARM, OCCLUSION BALLOONS, VIABAHN STENTS ; Surgeon: Qasim Pederson MD; [place] [facility] [place] 02/04/2019 Procedure: DIALYSIS CATHETER - REMOVAL; Surgeon: Qasim Pederson MD; Location: [facility] OR ; Service: Vascular; Laterality: N/A; Infected PD catheter removal DEBRIDEMENT Left 07/08/2019 Procedure: LEFT AXILLA WOUND DEBRIDEMENT, WASHOUT AND POSSIBLE WOUND VAC PLACEMENT; Surge on: Qasim Pederson MD; [place] [facility] [place] OTHER SURGICAL HISTORY Left 03/11/2019 AV FISTULA PLACEMENT - Procedure: AV FISTULA; Surgeon: Qasim Pederson MD; Location: [facility] OR; Service: Vascular; Laterality: Left; OTHER SURGICAL HISTORY HARDWARE PRESENT OTHER SURGICAL HISTORY Right 01/2019 chest wall OTHER SURGICAL HISTORY Left 05/06/2019 AV GRAFT CREATION - Procedure: AV GRAFT CREATION; Surgeon: Qasim Pederson MD; Location: [facility] MA[facility] OR; Service: Vascular; Laterality: Left; bovine carotid graft OTHER SURGICAL HISTORY Left 05/26/2019 WOUND VAC PLACEMENT/REPLACEMENT - Procedure: WOUND VAC - PLACEMENT - REPLACEMENT; Surgeon : Qasim Pederson MD; Location: [facility] OR; Service: Vascular; Laterality: Left; PERITONEAL CATHETER PLACEMENT/REMOVAL 10/28/2015 Procedure: LAPAROSCOPIC - PERITONEAL DIALYSIS CATH INSERTION; Surgeon: Mundo Ramos MD; Lo cation: [facility] MAIN OR; Service: Vascular; Laterality: N/A; UPPER GASTROINTESTINAL ENDOSCOPY 09/10/2017 Procedure: ESOPHAGOGASTRODUODENOSCOPY; Surgeon: Beena Peters MD; Location: [facility]; Service: Gastroenterology; Laterality: N/A; WISDOM TOOTH EXTRACTION Medications: Current Facility-Administered Medications on File Prior to Encounter Medication Dose Route Frequency Provider Last Rate Last Dose HYDROcodone-acetaminophen (NORCO) 5-325 mg per tablet 1-2 tablet 1-2 tablet Oral Q4H P RN Man Jeronimo PA-C Current Outpatient Medications on File Prior to Encounter Medication Sig Dispense Refill clindamycin (CLEOCIN) 300 MG capsule Take 1 capsule by mouth every 6 hours for 10 days. Indications: Wound Infection After Surgery 40 capsule 0 omeprazole (PRILOSEC) 20 mg capsule Take [...] once daily in the evening with meals. Allergies: Allergies Allergen Reactions Adhesive & Tape Itching FH: family history includes Breast cancer in her maternal grandmother; Cancer in her maternal g randmother; Diabetes in her father; Kidney disease in her paternal grandfather; Other (see c omment) in her mother. SH: Social History Socioeconomic History Marital status: Spouse [...] at home and is a former smoker. ROS: Constitutional: Negative for fever, chills, body aches, weight changes Eyes: Negative for vision changes, floaters Nose: Negative for congestion, nosebleeds Throat: Negative for sore throat CV: Negative for chest pain, orthopnea, palpitations Resp: Negative for [id number], cough, hemoptysis GI: Negative for abdominal pain, vomiting, or diarrhea. Positive for nausea : Negative for urinary frequency, dysuria, hematuria Musculoskeletal: Negative for back pain, joint pain, joint swelling Skin: positive for LUE swelling and erythema and pain Neuro/Psych: Negative for headache, dizziness, changes in mentation Endo/heme/Lymph: Negative for swollen lymph nodes, easy bruising Physical Exam: BP 134/78 | Pulse 79 | Temp 37.2 C (99 F) (Oral) | Resp 16 | Wt 87.7 kg (193 lb 5.5 oz) | LMP 08/10/2019 | SpO2 100% | BMI 35.36 kg/m General: Alert, no distress, lying in bed. Mother at bedside. Eyes: PERRL, no scleral icterus, no dischage ENT: External ears normal, Nose normal, oropharynx moist no exudates Neck: Supple, no thyromegaly Cardiovascular: Regular rate and rhythm, no murmurs, no rub Chest: Right tunneled HD cath Respiratory: No respiratory distress, clear bilaterally, no wheezing Abdomen: Soft, non-tender, non-distended, active bowel sounds Back: No tenderness or deformity Skin: LUE erythema and swelling over graft site, tender to mild palpation Extremities: No edema, no joint deformities Neuro: No gross motor/sensory deficit. CN grossly intact. Alert and oriented to person, pl wilmer, time. Labs: Recent Labs Lab 08/28/19 0402 08/27/191951 WBC 9.89 -- HGB 11.2* -- HCT 33.7* -- PLT 172 -- NA 141 -- K 5.0* 3.8 CL 103 -- CO2 29 -- BUN 20 -- EGFR 8* -- CALCIUM 8.3* -- ANIONGAP 14 -- PHOS 4.4 -- MG 2.5* -- No results for input(s): TROPONINT, CKMB in the last 168 hours. Invalid input(s): CKTOTAL, TROPONINI, CKMBINDEX, PCOTNI No results for input(s): CLARITYU, LEUKOCYTESUR, UROBILINOGEN, PHUR, BLOODU, KETONES, BILIR UBINUR, GLUCOSEU, RBCU, BACTERIA, COMU in the last 168 hours. Invalid input(s): UCOL, SPECGRAV, NITRITE, UPRO Imaging: No new imaging Problem List: Principal Problem: Infected prosthetic vascular graft, initial encounter Assessment and Plan: LUE graft placement complicated by non healing wound and bleeding, now with acute infection - Dr. Ramos consulted, plan for OR today - Dr. Marroquin consulted, recommended Vancomycin, will follow - Blood cultures ordered but after abx started in ED - Nephrology Dr. 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 Renal post op DVT: Heparin Dispo: Inpatinet Code: Full Hilda Haddad DO 09/03/2019 documented in this e ncounter Procedure Notes Linden Alonzo MD - 09/06/2019 6:15 PM PDTFormatting of this note might be different from t brant original. [facility] Service: NEPHROLOGY Dialysis Note Ramona Reeves 39 y.o. [phone] [id number] female No Physician on file Hospital Day: LOS: 3 days 39 y.o.female admitted with infected Left arm AVG S/P Nephrology consulted for evaluation and management of ESRD ONSET Chronic severity severe Associated with fluid electrolyte acid base imbalances Assess need for hd/uf Seen and examined on hd with hd rn Icee tolerating hd/ uf well Access functioning well HD FLOW SHEET REVIEWED Feels better no cp, sob, n , v, d, fever, h/a Past Medical History: Diagnosis Date Acid reflux [...] normal sized kidneys. 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) Hypercalcemia 09/07/2017 Hyperphosphatemia [...] - REMOVAL; Surgeon: Qasim Pederson MD; Location: [facility] OR ; Service: Vascular; Laterality: N/A; Infected PD catheter removal DEBRIDEMENT Left 07/08/2019 Procedure: LEFT AXILLA WOUND DEBRIDEMENT, WASHOUT AND POSSIBLE WOUND VAC PLACEMENT; Surge on: Qasim Pederson MD; [place] [facility] [place] OTHER SURGICAL HISTORY Left 03/11/2019 AV FISTULA PLACEMENT - Procedure: AV FISTULA; Surgeon: Qasim Pederson MD; Location: [facility] OR; Service: Vascular; Laterality: Left; OTHER SURGICAL HISTORY HARDWARE PRESENT OTHER SURGICAL HISTORY Right 01/2019 chest wall OTHER SURGICAL HISTORY Left 05/06/2019 AV GRAFT CREATION - Procedure: AV GRAFT CREATION; Surgeon: Qasim Pederson MD; Location: [facility] MAIN OR; Service: Vascular; Laterality: Left; bovine carotid graft OTHER SURGICAL HISTORY Left 05/26/2019 WOUND VAC PLACEMENT/REPLACEMENT - Procedure: WOUND VAC - PLACEMENT - REPLACEMENT; Surgeon : Qasim Pederson MD; Location: [facility] OR; Service: Vascular; Laterality: Left; PERITONEAL CATHETER PLACEMENT/REMOVAL 10/28/2015 Procedure: LAPAROSCOPIC - PERITONEAL DIALYSIS CATH INSERTION; Surgeon: Mundo Ramos MD; Lo cation: [facility] OR; Service: Vascular; Laterality: N/A; UPPER GASTROINTESTINAL ENDOSCOPY 09/10/2017 Procedure: ESOPHAGOGASTRODUODENOSCOPY; Surgeon: Beena Peters MD; Location: [facility]; Service: Gastroenterology; Laterality: N/A; WISDOM TOOTH EXTRACTION Facility-Administered Medications Prior to Admission Medication Dose Route Frequency Provider Last Rate Last Dose HYDROcodone-acetaminophen (NORCO) 5-325 mg per tablet 1-2 tablet 1-2 tablet Oral Q4H P RN Man Jeronimo PA-C Medications Prior to Admission Medication Sig Dispense Refill clindamycin (CLEOCIN) 300 MG capsule Take 1 capsule by mouth every 6 hours for 10 days. Indications: Wound Infection After Surgery 40 capsule 0 omeprazole (PRILOSEC) 20 mg capsule Take [...] once daily in the evening with meals. Allergies Allergen Reactions Adhesive & Tape Itching Family History Problem Relation Age of Onset Cancer Maternal Grandmother breast ca Kidney disease Paternal Grandfather renal falure Other (see comment) Mother Other (see comments) - healthy Diabetes Father Breast cancer Maternal Grandmother Malig hypertherm Neg Hx Social History Socioeconomic History Marital status: Spouse [...] and is a former smoker. Scheduled Medications heparin 1,500-6,000 Units Intracatheter After each dialysis heparin 5,000 Units Subcutaneous 2 times per day pantoprazole 40 mg Oral QAM AC sevelamer carbonate 1,600 mg Oral BID WC (bfast and lunch) sevelamer carbonate 2,400 mg Oral Daily with dinner vancomycin 1,000 mg Intravenous See Admin Instructions vancomycin per pharmacy Other Pharmacy Consult Continuous Infusions PRN Medications Allergy: Allergies Allergen Reactions Adhesive & Tape Itching OBJECTIVE Vital Signs: BP 140/87 | Pulse 71 | Temp 36.7 C (98 F) (Oral) | Resp 18 | Ht 1.575 m (5' 2") | Wt 87.1 kg (192 lb) | LMP 08/10/2019 | SpO2 97% | ? No | BMI 35.12 kg/m I&O Detailed Table: I/O last 3 completed shifts: In: 355 [P.O.:355] Out: 0 Weight change: Examination: APPEARANCE: The patient is a pleasant sitting in no apparent distress. VITALS: Reviewed as listed. HEENT: NC/AT. +ve pale conjunctiva LUNGS: Clear to auscultation bilaterally. HEART: S1, S2, no pericardial rub noted. ABDOMEN: Full, soft, no tenderness. EXTREMITIES: no pedal edema noted. NEUROLOGIC: No gross focal motor deficit noted. PSYCH: The patient is alert and oriented x 3, mood and affect looks ok, memory seems to be intact. R IJ Tunneled HD CATHTER FUNCTIONING WELL L ARM dressed LABS: Recent Results (from the past 24 hour(s)) CBC no Differential Collection Time: 09/06/19 5:14 Result Value Ref Range WBC 8.65 3.80 - 11.00 K/uL RBC 3.36 (L) 3.70 - 5.10 M/uL Hemoglobin 10.1 (L) 11.3 - 15.5 g/dL Hematocrit 29.7 (L) 34.0 - 46.0 % MCV 88.5 80.0 - 100.0 fl MCH 30.1 27.0 - 34.0 pg MCHC 34.0 32.0 - 35.5 g/dL RDW-SD 43.3 37 - 53 fl Platelet Count 276 150 - 400 K/uL MPV 8.7 fl Basic Metabolic Panel Collection Time: 09/06/19 5:14 Result Value Ref Range Na 135 135 - 145 mmol/L K 4.5 3.5 - 4.9 mmol/L Cl 99 99 - 109 mmol/L CO2 26 23 - 32 mmol/L Anion Gap 15 5 - 20 mmol/L Glucose 78 65 - 99 mg/dL BUN 47 (H) 8 - 25 mg/dL Creatinine 11.3 (H) 0.50 - 1.00 mg/dL BUN/Creatinine Ratio 4 Calcium 8.6 8.5 - 10.5 mg/dL Estimated GFR 4 (L) >60 mL/min/1.73m2 Magnesium Collection Time: 09/06/19 5:14 Result Value Ref Range Magnesium 3.2 (H) 1.7 - 2.4 mg/dL Phosphorus Collection Time: 09/06/19 5:14 Result Value Ref Range Phosphorus 6.3 (H) 2.3 - 4.8 mg/dL Patient's old records, imaging and labs were reviewed in detail and summarized. PROBLEM LIST Principal Problem: Infected prosthetic vascular graft, initial encounter ASSESSMENT & PLAN ESRD ON HD Seen and examined on hd tolerating hd/ uf well Access functioning well HD FLOW SHEET REVIEWED Assess daily for need for hd & uf Orders in the chart Fluid restriction 1.2 litres/24 hours Strict I & O Daily RFP Renal diet Daily weights will help with subsequent hd with uf Dose all meds per protocol for ESRD on hd ANEMIA in ESRD Stable EPOGEN TO KEEP HGB 10-11 Lab Results Component Value Date HGB 10.1 (L) 09/06/2019 HGB 10.6 (L) 09/05/2019 HGB 10.6 (L) 09/04/2019 HYPERTENSION Controlled WATCH BP CLOSELY DURING HOSPITALIZATION LOW NA DIET Will adjust BP meds according to BP readings BP Readings from Last 3 Encounters: 09/06/19 140/87 08/28/19 115/75 08/10/19 128/58 HYPERPHOSPHATEMIA LOW P DIET PO4 BINDERS Renvela with meals Lab Results Component Value Date PHOS 6.3 (H) 09/06/2019 PHOS 4.8 09/05/2019 PHOS 3.3 09/04/2019 HYPOALBUMINEMIA INCREASE PROTEIN INTAKE L ARM AVG S/P Excision by Dr Ramos On abx per primary team CASE DISCUSSED IN DETAIL WITH PATIENT/ care team, ANSWERS ALL QUESTIONS IN DETAIL, VERBALIZ ES UNDERSTANDING Linden Alonzo MD 09/06/2019 No Physician on file Seen earlier and charting completed later Dictation software, VtagO, used which may contain error for similar sounding words even af ter review. Personal communication requested for any clarification. inden Alonzo MD - 09/03/2019 11:25 PM PDTFormatt ing of this note might be different from the original. [facility] Service: NEPHROLOGY HD Note Ramona Reeves 39 y.o. [id number] female No Physician on file Hospital Day: LOS: 0 days 39 y.o.female with PMH ESRD on HD TIW, HTN, Secondary Hyperparathyroidism [facility] with fever and chills along with swelling / redness at site of Left arm AVG. Nephrology consulted for evaluation and management of ESRD ONSET Chronic severity severe Associated with fluid electrolyte acid base imbalances Assess need for hd/uf Seen and examined on hd with hd rn Silviano tolerating hd/ uf well Access functioning well HD FLOW SHEET REVIEWED S/p removal of left infected AVG Feels ok No cp, sob, n, v, d, fever Past Medical History: Diagnosis Date Acid reflux [...] normal sized kidneys. 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) Hypercalcemia 09/07/2017 Hyperphosphatemia [...] - REMOVAL; Surgeon: Qasim Pederson MD; Location: [facility] ; Service: Vascular; Laterality: N/A; Infected PD catheter removal DEBRIDEMENT Left 07/08/2019 Procedure: LEFT AXILLA WOUND DEBRIDEMENT, WASHOUT AND POSSIBLE WOUND VAC PLACEMENT; Surge on: Qasim Pederson MD; [place] [facility] [place] OTHER SURGICAL HISTORY Left 03/11/2019 AV FISTULA PLACEMENT - Procedure: AV FISTULA; Surgeon: Qasim Pederson MD; Location: [facility]; Service: Vascular; Laterality: Left; OTHER SURGICAL HISTORY HARDWARE PRESENT OTHER SURGICAL HISTORY Right 01/2019 chest wall OTHER SURGICAL HISTORY Left 05/06/2019 AV GRAFT CREATION - Procedure: AV GRAFT CREATION; Surgeon: Qasim Pederson MD; Location: [facility] OR; Service: Vascular; Laterality: Left; bovine carotid graft OTHER SURGICAL HISTORY Left 05/26/2019 WOUND VAC PLACEMENT/REPLACEMENT - Procedure: WOUND VAC - PLACEMENT - REPLACEMENT; Surgeon : Qasim Pederson MD; Location: [facility]; Service: Vascular; Laterality: Left; PERITONEAL CATHETER PLACEMENT/REMOVAL 10/28/2015 Procedure: LAPAROSCOPIC - PERITONEAL DIALYSIS CATH INSERTION; Surgeon: Mundo Ramos MD; Lo cation: [facility] OR; Service: Vascular; Laterality: N/A; UPPER GASTROINTESTINAL ENDOSCOPY 09/10/2017 Procedure: ESOPHAGOGASTRODUODENOSCOPY; Surgeon: Beena Peters MD; Location: [facility]; Service: Gastroenterology; Laterality: N/A; WISDOM TOOTH EXTRACTION Facility-Administered Medications Prior to Admission Medication Dose Route Frequency Provider Last Rate Last Dose HYDROcodone-acetaminophen (NORCO) 5-325 mg per tablet 1-2 tablet 1-2 tablet Oral Q4H P RN Man Jeronimo PA-C Medications Prior to Admission Medication Sig Dispense Refill clindamycin (CLEOCIN) 300 MG capsule Take 1 capsule by mouth every 6 hours for 10 days. Indications: Wound Infection After Surgery 40 capsule 0 omeprazole (PRILOSEC) 20 mg capsule Take [...] once daily in the evening with meals. Allergies Allergen Reactions Adhesive & Tape Itching Family History Problem Relation Age of Onset Cancer Maternal Grandmother breast ca Kidney disease Paternal Grandfather renal falure Other (see comment) Mother Other (see comments) - healthy Diabetes Father Breast cancer Maternal Grandmother Malig hypertherm Neg Hx Social History Socioeconomic History Marital status: Spouse [...] and is a former smoker. Scheduled Medications heparin 1,500-6,000 Units Intracatheter After each dialysis heparin 5,000 Units Subcutaneous 2 times per day [START ON 09/04/2019] pantoprazole 40 mg Oral QAM AC [START ON 09/04/2019] sevelamer carbonate 1,600 mg Oral BID WC (bfast and lunch) sevelamer carbonate 2,400 mg Oral Daily with dinner vancomycin per pharmacy Other Pharmacy Consult Continuous Infusions PRN Medications Allergy: Allergies Allergen Reactions Adhesive & Tape Itching OBJECTIVE Vital Signs: BP 116/62 | Pulse 68 | Temp 36.8 C (98.3 F) (Oral) | Resp 18 | Wt 89.5 kg (197 lb 5 oz) | LMP 08/10/2019 | SpO2 100% | ? No | BMI 36.09 kg/m I&O Detailed Table: I/O last 3 completed shifts: In: 480 [I.V.:480] Out: - Weight change: Examination: seen on hd with hd rn Silviano APPEARANCE: The patient is a pleasant sitting in chair comfortably, answering appropriately . VITALS: Reviewed as listed. HEAD: NC/AT. LUNGS: Clear to auscultation bilaterally. HEART: S1, S2, no pericardial rub noted. ABDOMEN: Full, soft, no tenderness. EXTREMITIES: no pedal edema noted. NEUROLOGIC: No gross focal motor deficit noted. PSYCH: The patient is alert and oriented x 3, mood and affect looks ok, memory seems to be intact. KAITLIN / Axillary area dressed R IJ Tunneled hd catheter functioning well LABS: Recent Results (from the past 24 hour(s)) CBC with Differential Collection Time: 09/03/19 13:32 Result Value Ref Range WBC 13.78 (H) 3.80 - 11.00 K/uL RBC 3.97 3.70 - 5.10 M/uL Hemoglobin 11.2 (L) 11.3 - 15.5 g/dL Hematocrit 34.8 34.0 - 46.0 % MCV 87.8 80.0 - 100.0 fl MCH 28.3 27.0 - 34.0 pg MCHC 32.2 32.0 - 35.5 g/dL RDW-SD 46.8 37 - 53 fl Platelet Count 270 150 - 400 K/uL MPV 8.2 fl Diff Type AUTOMATED % Neutrophils 87.33 % % Lymphocytes 6.87 % Monocyte % 4.06 % Eosinophils % 1.27 % Basophils % 0.47 % Neutrophils, Absolute 12.04 (H) 1.90 - 7.40 K/uL Absolute Lymphocytes 0.95 (L) 1.00 - 3.90 K/uL Absolute Monocytes 0.56 0.00 - 0.80 K/uL Eosinophils, Absolute 0.17 0.00 - 0.50 K/uL Basophils, Absolute 0.07 0.00 - 0.10 K/uL RBC Morphology RBC AND PLT MORPHOLOGY APPEAR NORMAL Comment SLIDE SCANNED, AGREES WITH AUTOMATED RESULTS. Comprehensive Metabolic Panel Collection Time: 09/03/19 13:32 Result Value Ref Range Na 138 135 - 145 mmol/L K 5.5 (H) 3.5 - 4.9 mmol/L Cl 102 99 - 109 mmol/L CO2 27 23 - 32 mmol/L Anion Gap 15 5 - 20 mmol/L Glucose 97 65 - 99 mg/dL BUN 31 (H) 8 - 25 mg/dL Creatinine 9.05 (H) 0.50 - 1.00 mg/dL BUN/Creatinine Ratio 3 Calcium 9.1 8.5 - 10.5 mg/dL Protein, Total 6.7 6.3 - 8.2 g/dL Albumin 4.0 3.6 - 5.0 g/dL Globulin 2.7 1.3 - 4.9 g/dL A/G Ratio 1.5 1.0 - 2.4 BILIRUBIN, TOTAL 0.2 0.1 - 1.5 mg/dL ALK PHOS 73 35 - 115 U/L AST 12 10 - 45 U/L ALT <7 (L) 10 - 65 U/L Estimated GFR 5 (L) >60 mL/min/1.73m2 Magnesium Collection Time: 09/03/19 13:32 Result Value Ref Range Magnesium 3.2 (H) 1.7 - 2.4 mg/dL , Serum, Qual Collection Time: 09/03/19 15:11 Result Value Ref Range Preg, Serum NEGATIVE NEG Culture, Wound, Smear, w/Anaerobe Collection Time: 09/03/19 16:27 Result Value Ref Range Special Requests LT ARM GRAFT SITE Gram Stain Result WBC'S SEEN Gram Stain Result GRAM POSITIVE COCCI Gram Stain Result STAIN PERFORMED ON CYTOSPIN Gram Stain Result Testing performed [place] [facility] [place] [id number] RESULT PENDING POC ISTAT, CG8, Arterial Collection Time: 09/03/19 16:30 Result Value Ref Range pH, Arterial, POC 7.410 7.350 - 7.450 pCO2, Arterial 42 35 - 45 mmHg pO2, Arterial 320 (HH) 80 - 105 mmHg HCO3, Arterial 27 (H) 22 - 26 mmol/L TCO2, Arterial, POC 28 (H) 23 - 27 mEq/L Base Excess, POC 2 0 - 3 mEq/L SO2, Arterial, POC 100 (H) 95 - 98 % Sodium, POC 134 (L) 135 - 145 mEq/L Potassium, POC 4.8 3.5 - 5.0 mEq/L Ionized Calcium, POC 1.13 1.12 - 1.32 mmol/L Glucose, POC 88 65 - 99 mg/dL Hematocrit, POC 32 (L) 35.0 - 46.0 % Hemoglobin, POC 10.9 (L) 11.6 - 15.5 g/dL Culture, Tissue, Smear, with Anaerobes Collection Time: 09/03/19 17:23 Result Value Ref Range Special Requests L ARM Special Requests Testing performed at [address] [address] Gram Stain Result 3+ WBC'S SEEN Gram Stain Result 4+ GRAM POSITIVE COCCI Gram Stain Result Testing performed at [facility], [address] [place] [id number] RESULT PENDING ECG 12 lead Collection Time: 09/03/19 17:53 Result Value Ref Range INTERPRETATION TEXT Not Confirmed POC ISTAT, CG8, Arterial Collection Time: 09/03/19 18:17 Result Value Ref Range pH, Arterial, POC 7.402 7.350 - 7.450 pCO2, Arterial 36 35 - 45 mmHg pO2, Arterial 184 (H) 80 - 105 mmHg HCO3, Arterial 22 22 - 26 mmol/L TCO2, Arterial, POC 23 23 - 27 mEq/L POC Base Deficit mmol/L 3 (H) 0.0 - 2.0 mmol/L SO2, Arterial, POC 100 (H) 95 - 98 % Sodium, POC 136 135 - 145 mEq/L Potassium, POC 4.7 3.5 - 5.0 mEq/L Ionized Calcium, POC 1.09 (L) 1.12 - 1.32 mmol/L Glucose, POC 99 65 - 99 mg/dL Hematocrit, POC 31 (L) 35.0 - 46.0 % Hemoglobin, POC 10.5 (L) 11.6 - 15.5 g/dL Patient's old records, imaging and labs were reviewed in detail and summarized. PROBLEM LIST Principal Problem: Infected prosthetic vascular graft, initial encounter ASSESSMENT & PLAN ESRD ON HD Seen and examined on hd tolerating hd/ uf well Access functioning well HD FLOW SHEET REVIEWED Assess daily for need for hd & uf Orders in the chart Fluid restriction 1.2 litres/24 hours Strict I & O Daily RFP Renal diet Daily weights will help with subsequent hd with uf Dose all meds per protocol for ESRD on hd ANEMIA in ESRD EPOGEN TO KEEP HGB 10-11 Lab Results Component Value Date HGB 10.5 (L) 09/03/2019 HGB 10.9 (L) 09/03/2019 HGB 11.2 (L) 09/03/2019 HGB 11.2 (L) 08/28/2019 HGB 11.9 08/27/2019 HYPERTENSION Controlled WATCH BP CLOSELY DURING HOSPITALIZATION LOW NA DIET Will adjust BP meds according to BP readings BP Readings from Last 3 Encounters: 09/03/19 116/62 08/28/19 115/75 08/10/19 128/58 HYPERPHOSPHATEMIA LOW P DIET PO4 BINDERS Lab Results Component Value Date PHOS 4.4 08/28/2019 PHOS 5.7 (H) 08/27/2019 PHOS 6.9 (H) 08/26/2019 HYPOALBUMINEMIA INCREASE PROTEIN INTAKE No results found for: ALB L ARM AVG Infected abx per primary team Vasc sx Dr Ramos consulted S/p removal of left infected AVG CASE DISCUSSED IN DETAIL WITH PATIENT/ care team, ANSWERS ALL QUESTIONS IN DETAIL, VERBALIZ ES UNDERSTANDING Linden Alonzo MD 09/03/2019 No Physician on file Seen earlier and charting completed later Dictation software, VtagO, used which may contain error for similar sounding words even af ter review. Personal communication requested for any clarification. documented in this encounter Consult Notes Cathie Marroquin MD - 09/04/2019 12:50 PM PDTFormatting of this note might be d ifferent from the original. [facility] Service: Infectious Diseases Initial Consult Note Date of Admission: 09/03/2019 Requesting Physician: Brandin Cortez MD, Hospitalist Reason for Consult LUE vascular site infection CHIEF COMPLAINT LUE swelling/redness HISTORY OF PRESENT ILLNESS The patient is a 39 y.o.-year-old female with significant PMH noted below. Infectious Disease (ID) consult requested for further evaluation and management. PAST MEDICAL HISTORY Past Medical History: Diagnosis [...] normal sized kidneys. 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) Hypercalcemia 09/07/2017 Hyperphosphatemia [...] - REMOVAL; Surgeon: Qasim Pederson MD; Location: [facility] MAIN OR ; Service: Vascular; Laterality: N/A; Infected PD catheter removal DEBRIDEMENT Left 07/08/2019 Procedure: LEFT AXILLA WOUND DEBRIDEMENT, WASHOUT AND POSSIBLE WOUND VAC PLACEMENT; Surge on: Qasim Pederson MD; [place] [facility] [place] OTHER SURGICAL HISTORY Left 03/11/2019 AV FISTULA PLACEMENT - Procedure: AV FISTULA; Surgeon: Qasim Pederson MD; Location: [facility] M AIN OR; Service: Vascular; Laterality: Left; OTHER SURGICAL HISTORY HARDWARE PRESENT OTHER SURGICAL HISTORY Right 01/2019 chest wall OTHER SURGICAL HISTORY Left 05/06/2019 AV GRAFT CREATION - Procedure: AV GRAFT CREATION; Surgeon: Qasim Pederson MD; Location: [facility] MAIN OR; Service: Vascular; Laterality: Left; bovine carotid graft OTHER SURGICAL HISTORY Left 05/26/2019 WOUND VAC PLACEMENT/REPLACEMENT - Procedure: WOUND VAC - PLACEMENT - REPLACEMENT; Surgeon : Qasim Pederson MD; Location: [facility] MAIN OR; Service: Vascular; Laterality: Left; PERITONEAL CATHETER PLACEMENT/REMOVAL 10/28/2015 Procedure: LAPAROSCOPIC - PERITONEAL DIALYSIS CATH INSERTION; Surgeon: Mundo Ramos MD; Lo cation: [facility] MAIN OR; Service: Vascular; Laterality: N/A; UPPER GASTROINTESTINAL ENDOSCOPY 09/10/2017 Procedure: ESOPHAGOGASTRODUODENOSCOPY; Surgeon: Beena Peters MD; Location: [facility] ENDOSCOP Y; Service: Gastroenterology; Laterality: N/A; WISDOM TOOTH EXTRACTION Social History Socioeconomic History Marital status: Spouse [...] home and is a former smoker. Family History Problem Relation Age of Onset Cancer Maternal Grandmother breast ca Kidney disease Paternal Grandfather renal falure Other (see comment) Mother Other (see comments) - healthy Diabetes Father Breast cancer Maternal Grandmother Malig hypertherm Neg Hx ALLERGIES Allergies Allergen Reactions Adhesive & Tape Itching Continuous Infusions REVIEW OF SYSTEMS: Complete review of the constitutional, ENT, cardiovascular, respiratory, gastrointestinal, genitourinary, integumentary, musculoskeletal, psychiatric, neurologic, heme/lymphatic syste ms is entirely negative except as described above in the history of the present illness. PHYSICAL EXAM Vital Signs: BP 131/73 | Pulse 76 | Temp 36.8 C (98.3 F) (Oral) | Resp 18 | Wt 87.4 kg (192 lb 1 0.9 oz) | LMP 08/10/2019 | SpO2 96% | ? No | BMI 35.24 kg/m Constitutional: The patient is in no acute distress and appears stated age. Vital signs wer e reviewed as above Head: Normocephalic and atraumatic ENT: Mucous membranes are moist. There is no evidence of thrush. No pharyngeal exudates. Neck: Supple without thyromegaly or meningismus; R tunneled cath Heart: Regular rate and rhythm without murmurs gallops or rubs Lungs: Clear to auscultation bilaterally without wheezes rales or rhonchi. organomegaly or mass Musculoskeletal: There is no gross deformity or active arthritis. Neuro: There are no gross deficits of motor or sensory function Skin: LUE graft site with wound vac in place Extremities: There is no clubbing, cyanosis, or peripheral edema. Psychiatric: The patient attends the examiner without difficulty and affect is appropriate. REVIEW OF LABS: All labs reviewed. CBC: Lab Results Component Value Date WBC 13.90 (H) 09/04/2019 RBC 3.59 (L) 09/04/2019 RBC 4.35 04/04/2019 HGB 10.6 (L) 09/04/2019 HCT 32.0 (L) 09/04/2019 HCT 31 (L) 09/03/2019 MCV 88.9 09/04/2019 MCH 29.5 09/04/2019 MCHC 33.2 09/04/2019 PLT 252 09/04/2019 MPV 8.7 09/04/2019 DIFFTYPE AUTOMATED 09/03/2019 CMP: Lab Results Component Value Date NA 133 (L) 09/04/2019 K 4.8 09/04/2019 CL 98 (L) 09/04/2019 CO2 30 09/04/2019 ANIONGAP 10 09/04/2019 GLUF 71 05/26/2019 BUN 18 09/04/2019 BCR 3 05/26/2019 GLOB 3.4 04/02/2019 AGRATIO 1.5 09/03/2019 BILITOT 0.3 04/02/2019 AST 12 09/03/2019 ALT <7 (L) 09/03/2019 EGFR 8 (L) 09/04/2019 MICROBIOLOGY Culture, Blood [[id number]] Collected: 09/03/192015 Order Status: Sent Specimen: Blood Updated: 09/03/192217 Culture, Tissue, Smear, with Anaerobes [[id number]] Collected: 09/03/19 1723 Order Status: Completed Specimen: Tissue from Arm, Left Updated: 09/03/19 2242 Special Requests L ARM Special Requests Testing performed at [facility] [place] [id number] Gram Stain Result -- 3+ WBC'S SEEN Gram Stain Result -- 4+ GRAM POSITIVE COCCI Gram Stain Result Testing performed at [facility], [address] [place] [address] RESULT PENDING Comment: Testing performed at [facility], [address] [place] [id number] Culture, Wound, Smear, w/Anaerobe [[id number]] Collected: 09/03/19 1627 Order Status: Completed Specimen: Tissue from Arm, Left Updated: 09/03/19 1834 Special Requests LT ARM GRAFT SITE Gram Stain Result WBC'S SEEN Gram Stain Result GRAM POSITIVE COCCI Gram Stain Result STAIN PERFORMED ON CYTOSPIN Gram Stain Result Testing performed at [facility];[address] [place] [id number] RESULT PENDING Comment: Testing performed at [facility], [address] [place] [id number] ASSESSMENT AND RECOMMENDATIONS The patient is a 39 y.o.-year-old female with the following problems: LUE vasc graft site infection, S/p removal of infected AV graft from left arm and left axil la with vein patch repair of left axillary artery. ---GPC so far from prelim cultures ---Will need at least 4 weeks antibiotics that hopefully can be done with HD ESRD on HD Thank you for this consultation. Will follow along. Dictation software, VtagO, used which may contain error for similar sounding words even af ter review. Personal communication requested for any clarification. Portions of this chart may have been copied from previous notes for continuity of care purp sol Marroquin MD Infectious Diseases 09/04/2019 andhya Weston RN - 09/04/2019 9:07 AM PDTAssociated Order(s): IP CONSULT TO WOUND OSTOMY [facility]UR[facility] Service: Wound/Ostomy Care Progress Note Wound care spoke with Dr. Ramos. NPWT dressing due to be changed Friday09/04/19. After Hours Troubleshooting: - Vacuum Assisted Closure Policy 699.31.00 has full NPWT dressing procedure details if nee ded. - If NPWT dressing fails and wound care is not available, evaluate the reason on the VAC s creen. - For occluded line: Try replacing the canister or track pad. - For leaking dressing: Use additional KCI adhesive film or Tegaderm to reinforce leaking area as needed. - If NPWT suction is interrupted for longer than 2 hours, the entire dressing, including t he foam, must be removed and replaced with a wet to dry dressing that is to be changed three times a day. Nisha Weston RN 09/04/19 9:09 Linden Kincaid MD - 1 3:41 PM PDT [facility] Service: NEPHROLOGY CONSULT Note Ramona Reeves 39 y.o. [id number] KM OR [facility]TRA OP POOL/[facility] female No Physician on file Hospital Day: LOS: 0 days Date of Consultation: 09/03/2019 Requesting Physician: ED provider/ Hospitalist Reason for CONSULTATION: ESRD History Obtained From: patient, care team, records HISTORY OF PRESENT ILLNESS 39 y.o.female with PMH ESRD on HD TIW, HTN, Secondary Hyperparathyroidism [facility] with fever and chills along with swelling / redness at site of Left arm AVG. Patient g ot left arm Bovine AVG on May 06 2019 complicated by non healing wound requiring wound va c, presented to [facility] on 08/26/19 for bleeding from left axilla transferred to [facility] for ligati on of left axillary AVG by Dr Pederson. Since yesterday developing pain and erythema at her left axillary AVG site. Dr Ramos [facility] sx consulted. Patient has R IJ HD catheter in place. Nephrology consulted for evaluation and management of ESRD ONSET Chronic severity severe Associated with fluid electrolyte acid base imbalances Assess need for hd/uf Review of Systems 10 point ROS REVIEWED NEGATIVE EXCEPT LISTED ABOVE Past Medical History: Diagnosis Date Acid reflux [...] normal sized kidneys. 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) Hypercalcemia 09/07/2017 Hyperphosphatemia [...] - REMOVAL; Surgeon: Qasim Pederson MD; Location: [facility] MAIN OR ; Service: Vascular; Laterality: N/A; Infected PD catheter removal DEBRIDEMENT Left 07/08/2019 Procedure: LEFT AXILLA WOUND DEBRIDEMENT, WASHOUT AND POSSIBLE WOUND VAC PLACEMENT; Surge on: Qasim Pederson MD; [place] [facility] [place] OTHER SURGICAL HISTORY Left 03/11/2019 AV FISTULA PLACEMENT - Procedure: AV FISTULA; Surgeon: Qasim Pederson MD; Location: [facility] OR; Service: Vascular; Laterality: Left; OTHER SURGICAL HISTORY HARDWARE PRESENT OTHER SURGICAL HISTORY Right 01/2019 chest wall OTHER SURGICAL HISTORY Left 05/06/2019 AV GRAFT CREATION - Procedure: AV GRAFT CREATION; Surgeon: Qasim Pederson MD; Location: [facility] MAIN OR; Service: Vascular; Laterality: Left; bovine carotid graft OTHER SURGICAL HISTORY Left 05/26/2019 WOUND VAC PLACEMENT/REPLACEMENT - Procedure: WOUND VAC - PLACEMENT - REPLACEMENT; Surgeon : Qasim Pederson MD; Location: [facility] MAIN OR; Service: Vascular; Laterality: Left; PERITONEAL CATHETER PLACEMENT/REMOVAL 10/28/2015 Procedure: LAPAROSCOPIC - PERITONEAL DIALYSIS CATH INSERTION; Surgeon: Mundo Ramos MD; Lo cation: [facility] MAIN OR; Service: Vascular; Laterality: N/A; UPPER GASTROINTESTINAL ENDOSCOPY 09/10/2017 Procedure: ESOPHAGOGASTRODUODENOSCOPY; Surgeon: Beena Peters MD; Location: [facility] ENDOS[facility]; Service: Gastroenterology; Laterality: N/A; WISDOM TOOTH EXTRACTION Facility-Administered Medications Prior to Admission Medication Dose Route Frequency Provider Last Rate Last Dose HYDROcodone-acetaminophen (NORCO) 5-325 mg per tablet 1-2 tablet 1-2 tablet Oral Q4H P RN Man Jeronimo PA-C Medications Prior to Admission Medication Sig Dispense Refill clindamycin (CLEOCIN) 300 MG capsule Take 1 capsule by mouth every 6 hours for 10 days. Indications: Wound Infection After Surgery 40 capsule 0 omeprazole (PRILOSEC) 20 mg capsule Take [...] once daily in the evening with meals. Allergies Allergen Reactions Adhesive & Tape Itching Family History Problem Relation Age of Onset Cancer Maternal Grandmother breast ca Kidney disease Paternal Grandfather renal falure Other (see comment) Mother Other (see comments) - healthy Diabetes Father Breast cancer Maternal Grandmother Malig hypertherm Neg Hx Social History Socioeconomic History Marital status: Spouse [...] and is a former smoker. Scheduled Medications vancomycin per pharmacy Other Pharmacy Consult Continuous Infusions PRN Medications Allergy: Allergies Allergen Reactions Adhesive & Tape Itching OBJECTIVE Vital Signs: BP 113/62 | Pulse 75 | Temp 37.6 C (99.6 F) | Resp 16 | Wt 87.7 kg (193 lb 5.5 oz) | LMP 08/10/2019 | SpO2 99% | ? No | BMI 35.36 kg/m I&O Detailed Table: No intake/output data recorded. Weight change: Examination: Family at bedside APPEARANCE: The patient is a pleasant lying in no apparent distress. VITALS: Reviewed as listed. HEAD: NC/AT. EYES: EOMI. Non-icteric sclera. ENT: No oropharyngeal erythema. Buccal mucosa is moist. No gross ear or nasal prob lems noted. NECK: Supple. No raised JVD LUNGS: Clear to auscultation bilaterally. HEART: S1, S2, no pericardial rub noted. ABDOMEN: Full, soft, no tenderness. Bowel sounds are present. EXTREMITIES: no pedal edema noted. No cyanosis or clubbing. K[place]LIN / Axillary area swelling/ erythema SKIN: Warm to touch. NEUROLOGIC: No gross focal motor deficit noted. PSYCH: The patient is alert and oriented x 3, mood and affect looks ok, memory seems to be intact. R IJ Tunneled hd catheter in place LABS: Recent Results (from the past 24 hour(s)) CBC with Differential Collection Time: 09/03/19 13:32 Result Value Ref Range WBC 13.78 (H) 3.80 - 11.00 K/uL RBC 3.97 3.70 - 5.10 M/uL Hemoglobin 11.2 (L) 11.3 - 15.5 g/dL Hematocrit 34.8 34.0 - 46.0 % MCV 87.8 80.0 - 100.0 fl MCH 28.3 27.0 - 34.0 pg MCHC 32.2 32.0 - 35.5 g/dL RDW-SD 46.8 37 - 53 fl Platelet Count 270 150 - 400 K/uL MPV 8.2 fl Diff Type AUTOMATED % Neutrophils 87.33 % % Lymphocytes 6.87 % Monocyte % 4.06 % Eosinophils % 1.27 % Basophils % 0.47 % Neutrophils, Absolute 12.04 (H) 1.90 - 7.40 K/uL Absolute Lymphocytes 0.95 (L) 1.00 - 3.90 K/uL Absolute Monocytes 0.56 0.00 - 0.80 K/uL Eosinophils, Absolute 0.17 0.00 - 0.50 K/uL Basophils, Absolute 0.07 0.00 - 0.10 K/uL RBC Morphology RBC AND PLT MORPHOLOGY APPEAR NORMAL Comment SLIDE SCANNED, AGREES WITH AUTOMATED RESULTS. Comprehensive Metabolic Panel Collection Time: 09/03/19 13:32 Result Value Ref Range Na 138 135 - 145 mmol/L K 5.5 (H) 3.5 - 4.9 mmol/L Cl 102 99 - 109 mmol/L CO2 27 23 - 32 mmol/L Anion Gap 15 5 - 20 mmol/L Glucose 97 65 - 99 mg/dL BUN 31 (H) 8 - 25 mg/dL Creatinine 9.05 (H) 0.50 - 1.00 mg/dL BUN/Creatinine Ratio 3 Calcium 9.1 8.5 - 10.5 mg/dL Protein, Total 6.7 6.3 - 8.2 g/dL Albumin 4.0 3.6 - 5.0 g/dL Globulin 2.7 1.3 - 4.9 g/dL A/G Ratio 1.5 1.0 - 2.4 BILIRUBIN, TOTAL 0.2 0.1 - 1.5 mg/dL ALK PHOS 73 35 - 115 U/L AST 12 10 - 45 U/L ALT <7 (L) 10 - 65 U/L Estimated GFR 5 (L) >60 mL/min/1.73m2 Magnesium Collection Time: 09/03/19 13:32 Result Value Ref Range Magnesium 3.2 (H) 1.7 - 2.4 mg/dL , Serum, Qual Collection Time: 09/03/19 15:11 Result Value Ref Range Preg, Serum NEGATIVE NEG IMAGING: reviewed Patient's old records, imaging and labs were reviewed in detail and summarized. PROBLEM LIST Principal Problem: Infected prosthetic vascular graft, initial encounter ASSESSMENT & PLAN ESRD ON HD plan for hd/uf today Assess daily for need for hd & uf Orders in the chart Fluid restriction 1.2 litres/24 hours Strict I & O Daily RFP Renal diet Daily weights will help with subsequent hd with uf Dose all meds per protocol for ESRD on hd ANEMIA in ESRD Hold epogen as hgb above 11.0 EPOGEN TO KEEP HGB 10- Lab Results Component Value Date HGB 11.2 (L) 09/03/2019 HGB 11.2 (L) 08/28/2019 HGB 11.9 08/27/2019 HYPERTENSION WATCH BP CLOSELY DURING HOSPITALIZATION LOW NA DIET Will adjust BP meds according to BP readings BP Readings from Last 3 Encounters: 09/03/19 113/62 08/28/19 115/75 08/10/19 128/58 HYPERPHOSPHATEMIA LOW P DIET RESUME PO4 BINDERS Renvela with meals Lab Results Component Value Date PHOS 4.4 08/28/2019 PHOS 5.7 (H) 08/27/2019 PHOS 6.9 (H) 08/26/2019 HYPOALBUMINEMIA INCREASE PROTEIN INTAKE No results found for: ALB L ARM AVG Infected abx per primary team Vasc sx Dr Ramos consulted CASE DISCUSSED IN DETAIL WITH PATIENT/ care team, ANSWERS ALL QUESTIONS IN DETAIL, VERBALIZ ES UNDERSTANDING I thank Dr Haddad for giving me the opportunity to take part in the care of this alisa pa tient with multiple complex medical problems Linden Alonzo MD 09/03/2019 No Physician on file Seen earlier and charting completed later Dictation software, VtagO, used which may contain error for similar sounding words even af ter review. Personal communication requested for any clarification. rsales, Cathie Buck MD - 09/03/2019 3:3 4 PM PDTPatient in OR. Will see in AM. Received one dose of vanc prior to surgery for postop wound infection. Pharmacy to help renally dose.Electronically signed by Cathie Marroquin MD at 3:34 PM PDTLee, Mundo Cantor MD - 09/03/2019 3:03 PM PDTFormatting of this note eduardo ht be different from the original. Service: Vascular Surgery Initial Consult Note CHIEF COMPLAINT: Chills with erythema and pain around left arm AV graft HISTORY OF PRESENT ILLNESS The patient is 39 y.o. female with significant past medical history of HTN and ESRD who pre sents with fever and chills with concern for infection of left arm AV graft. She initially had the left arm AV graft created using bovine carotid artery in May 06. The operation was complicated by wound dehiscence and patient taken to the OR on 05/26 for wound washout and v ac placement. After few weeks of wound vac, patient was taken back to the OR on 07/08 due to the graft being exposed for another washout and replacement of wound vac. Wound vac was ev entually removed. Patient was seen in clinic on 08/24 for another wound check and graft was seen exposed in the wound. Patient was scheduled for another wound washout, graft removal, and wound vac placement. However, on 08/26 patient was emergently transferred to [facility] fo r severe bleeding from left axilla. She was taken to the OR for graft ligation. However, t he graft was not removed and wound was closed. Patient now presents with erythema and pain a round prior graft site. Therefore, vascular surgery was consulted. <COMORBIDITIES> REVIEW OF SYSTEMS Review of Systems Comprehensive ROS performed and pertinent items described in the HPI. Past Medical History: Diagnosis Date Acid reflux [...] normal sized kidneys. 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) Hypercalcemia 09/07/2017 Hyperphosphatemia [...] - REMOVAL; Surgeon: Qasim Pederson MD; Location: [facility] MAIN OR ; Service: Vascular; Laterality: N/A; Infected PD catheter removal DEBRIDEMENT Left 07/08/2019 Procedure: LEFT AXILLA WOUND DEBRIDEMENT, WASHOUT AND POSSIBLE WOUND VAC PLACEMENT; Surge on: Qasim Pederson MD; [place] [facility] [place] OTHER SURGICAL HISTORY Left 03/11/2019 AV FISTULA PLACEMENT - Procedure: AV FISTULA; Surgeon: Qasim Pederson MD; Location: [facility]; Service: Vascular; Laterality: Left; OTHER SURGICAL HISTORY HARDWARE PRESENT OTHER SURGICAL HISTORY Right 01/2019 chest wall OTHER SURGICAL HISTORY Left 05/06/2019 AV GRAFT CREATION - Procedure: AV GRAFT CREATION; Surgeon: Qasim Pederson MD; Location: [facility] MA[facility] OR; Service: Vascular; Laterality: Left; bovine carotid graft OTHER SURGICAL HISTORY Left 05/26/2019 WOUND VAC PLACEMENT/REPLACEMENT - Procedure: WOUND VAC - PLACEMENT - REPLACEMENT; Surgeon : Qasim Pederson MD; Location: [facility] OR; Service: Vascular; Laterality: Left; PERITONEAL CATHETER PLACEMENT/REMOVAL 10/28/2015 Procedure: LAPAROSCOPIC - PERITONEAL DIALYSIS CATH INSERTION; Surgeon: Mundo Ramos MD; Lo cation: [facility] MAIN OR; Service: Vascular; Laterality: N/A; UPPER GASTROINTESTINAL ENDOSCOPY 09/10/2017 Procedure: ESOPHAGOGASTRODUODENOSCOPY; Surgeon: Beena Peters MD; Location: [facility]; Service: Gastroenterology; Laterality: N/A; WISDOM TOOTH EXTRACTION Allergies Allergen Reactions Adhesive & Tape Itching (Not in a hospital admission) Scheduled Medications vancomycin 1.5 g Intravenous Once Continuous Infusions PRN Medications HYDROcodone-acetaminophen Family History Problem Relation Age of Onset Cancer Maternal Grandmother breast ca Kidney disease Paternal Grandfather renal falure Other (see comment) Mother Other (see comments) - healthy Diabetes Father Breast cancer Maternal Grandmother Paras prince Neg Hx reports that she has quit smoking. She has a 2.50 pack-year smoking history. She has never used smokeless tobacco. She reports that she drinks alcohol. She reports that she has curre nt or past drug history. Drug: Marijuana. PHYSICAL EXAM Vital Signs: BP 134/78 | Pulse 79 | Temp 37.2 C (99 F) (Oral) | Resp 16 | Wt 87.7 kg (193 lb 5.5 oz) | LMP 08/10/2019 | SpO2 100% | BMI 35.36 kg/m Physical Exam Vitals:reviewed CONSTITUTIONAL: Conversant, well developed, NAD EYES: Anicteric sclerae, no lid drag, no proptosis RESP: Normal effort, regular, even, unlabored rate CV: No peripheral edema, rate regular SKIN: [place], warm, dry without rash/lesion MS: ROM not limited, no digital cyanosis, normal gait NEURO: Conversant, A&O times 3 PSYCH: appropriate affect, speech and tone, judgement and insight intact Vascular: Erythema around left upper arm loop graft. DATA Lab Results Component Value Date WBC 13.78 (H) 09/03/2019 HGB 11.2 (L) 09/03/2019 HCT 34.8 09/03/2019 PLT 270 09/03/2019 CHOL 116 01/05/2019 TRIG 158 (H) 01/05/2019 HDL 45 01/05/2019 ALT <7 (L) 09/03/2019 AST 12 09/03/2019 NA 138 09/03/2019 K 5.5 (H) 09/03/2019 CL 102 09/03/2019 CREA 9.05 (H) 09/03/2019 BUN 31 (H) 09/03/2019 CO2 27 09/03/2019 TSH 3.40 10/27/2015 INR 1.1 01/05/2019 GLUF 71 05/26/2019 PROBLEM LIST Principal Problem: Infected prosthetic vascular graft, initial encounter ASSESSMENT & PLAN 39 yo female with left arm AV graft infection. Will plan to remove remaining left arm carito t with wound washout and vac placement. PARQ was done and consent was obtained. Code Status: Prior Primary Care Physician: No Physician on file Mundo Ramos MD 09/03/2019 documented i n this encounter ED Notes Rosmery Dunn RN - 09/03/2019 1:34 PM PDTLab phlebo at bedside osmery Dunn RN - 09/03/2019 1:13 PM PDTNephrologist at bedside osmery Dunn RN - 09/03/2019 1:13 PM PDTLab called for blood drawElectron ically signed by Rosmery Dunn RN at 09/03/2019 1:13 PM PDTLina Longoria PA-C - 1 12:54 PM PDT [facility] Department of Emergency Medicine No flowsheet data found. History of Present Illness Patient Identification Ramona Reeves is a 39 y.o. female. Patient information was obtained from patient and relative(s) History/Exam limitations: none. Patient presented to the Emergency Department by: Car Chief Complaint Chief Complaint Patient presents with Arm Pain report from Dr. Pederson's office. See note. friday was last dialysis, reprots swelling to left arm 39 y.o. female presents to ED with chief complaint of arm pain. Patient had a fistula sit e placed in March and has had ongoing difficulty with it. She was admitted here on 08/26 from bleeding, Dr. Pederson performed "Ligation of left axillary artery to axillary vein arteriovenou s graft (Bovein carotid graft)." Wound has been healing well thus far, her mother has been helping her clean it daily. She noticed redness, warmth, pain to the left axillary region y day with progressively worsening course. She is feeling tired but has not had any feve rs or chills. No injury to the arm. No chest pain or shortness of breath. She last got di alysis Wednesday, is due today but was told to come directly here. NPO since midnight. PCP: No Physician on file Nephrology: [email or web address] Immunization History Administered Date(s) Administered HEP B, 3 DOSE (ADULT) 11/16/2015, 12/12/2015 INFLUENZA PF QUAD(PED/ADOL/ADULT),PSKT or VIAL 09/06/2016 INFLUENZA QUADR W/PRES (PED/ADOL/ADULT) MULTIDOSE 08/23/2014 INFLUENZA TRIV W/PRES(PED/ADOL/ADULT),MULTIDOSE 08/04/2013, 10/23/2015 INFLUENZA, UNSPECIFIED FORMULATION 12/21/2010, 09/23/2011 PNEUMOCOCCAL PCV7 (PED) 12/21/2010 PNEUMOCOCCAL POLYSACCHARIDE 23-VALENT (PPSV23) 11/07/2015 Past Medical History: Diagnosis Date Acid reflux [...] normal sized kidneys. 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) Hypercalcemia 09/07/2017 Hyperphosphatemia [...] - REMOVAL; Surgeon: Qasim Pederson MD; Location: [facility] MAIN OR ; Service: Vascular; Laterality: N/A; Infected PD catheter removal DEBRIDEMENT Left 07/08/2019 Procedure: LEFT AXILLA WOUND DEBRIDEMENT, WASHOUT AND POSSIBLE WOUND VAC PLACEMENT; Surge on: Qasim Pederson MD; [place] [facility] [place] OTHER SURGICAL HISTORY Left 03/11/2019 AV FISTULA PLACEMENT - Procedure: AV FISTULA; Surgeon: Qasim Pederson MD; [facility]; Service: Vascular; Laterality: Left; OTHER SURGICAL HISTORY HARDWARE PRESENT OTHER SURGICAL HISTORY Right 01/2019 chest wall OTHER SURGICAL HISTORY Left 05/06/2019 AV GRAFT CREATION - Procedure: AV GRAFT CREATION; Surgeon: Qasim Pederson MD; Location: [facility] MAIN OR; Service: Vascular; Laterality: Left; bovine carotid graft OTHER SURGICAL HISTORY Left 05/26/2019 WOUND VAC PLACEMENT/REPLACEMENT - Procedure: WOUND VAC - PLACEMENT - REPLACEMENT; Surgeon : Qasim Pederson MD; Location: [facility] MAIN OR; Service: Vascular; Laterality: Left; PERITONEAL CATHETER PLACEMENT/REMOVAL 10/28/2015 Procedure: LAPAROSCOPIC - PERITONEAL DIALYSIS CATH INSERTION; Surgeon: Mundo Ramos MD; Lo cation: [facility] MAIN OR; Service: Vascular; Laterality: N/A; UPPER GASTROINTESTINAL ENDOSCOPY 09/10/2017 Procedure: ESOPHAGOGASTRODUODENOSCOPY; Surgeon: Beena Peters MD; Location: [facility]; Service: Gastroenterology; Laterality: N/A; WISDOM TOOTH EXTRACTION Prior to Admission medications Medication Sig Start Date End Date Taking? Authorizing Provider clindamycin (CLEOCIN) 300 MG capsule Take 1 capsule by mouth every 6 hours for 10 days. Ind ications: Wound Infection After Surgery 08/28/19 09/07/19 Allison Mane NP omeprazole (PRILOSEC) 20 mg capsule Take 20 mg by mouth every morning (before breakfast). Historical Provider, ondansetron (ZOFRAN) 4 mg tablet Take 4 mg by mouth every 6 hours as needed. 08/23/19 His torical Provider, promethazine (PHENERGAN) 25 mg tablet Take [...] the evening with meals. H istorical Provider, Allergies Allergen Reactions Adhesive & Tape Itching Social History Socioeconomic History Marital status: Spouse [...] home and is a former smoker. Family History Problem Relation Age of Onset Cancer Maternal Grandmother breast ca Kidney disease Paternal Grandfather renal falure Other (see comment) Mother Other (see comments) - healthy Diabetes Father Breast cancer Maternal Grandmother Malig hypertherm Neg Hx Review of Systems Review of Systems Constitutional: Positive for fatigue. Respiratory: Negative. Negative for shortness of breath. Cardiovascular: Negative. Skin: +left arm pain/redness/swelling All other systems reviewed and are negative. Physical Exam Vitals: 09/03/19 1205 09/03/19 1324 BP: 113/78 134/78 Pulse: 73 79 Resp: 18 16 Temp: 37.2 C (99 F) TempSrc: Oral SpO2: 100% 100% Weight: 87.7 kg (193 lb 5.5 oz) Pulse Oximetry interpretation: normal Physical Exam Constitutional: Nontoxic-appearing, chronically ill in appearance. Appears fatigued but is alert and orien medina Cardiovascular: Normal rate and regular rhythm. Pulmonary/Chest: Effort normal and breath sounds normal. Neurological: She is alert. Skin: Skin is warm and dry. Left upper extremity: There is erythema, warmth, induration and tenderness to the left prox imal anterior humerus. Sutures are in place in the axilla, no dehiscence or drainage. Fore arm is nontender, normal range of motion of the elbow. 2+ radial pulse, skin is warm and we ll-perfused Psychiatric: She has a normal mood and affect. Nursing note and vitals reviewed. Medical Decision Making and Emergency Department Course Records Reviewed Old medical records. Nursing notes. ED Department Course 1245 - Pt evaluation. 1255- Called Dr. Pederson, pt's vascular surgeon who recommends labs. Admission for broad spect rum abx, dialysis and Dr. Ramos vascular surgery to consult today. 1300 - called Dr. Ramos, vascular surgery who advises admission under hospitalist, NPO and he will take out the graft today. Called Dr. Marroquin, ID who recommends vancomycin 13:04 - spoke with Frandy, pharmacist who advises 2 grams vanco 13:08 - spoke with Dr. Alonzo, nephrology. He will evaluate and determine. If potassium okay he would be fine with surgery today. He will coordinate dialysis with her upcoming surgery. 13:26 - Dr. Ramos in ED for evaluation 1343 - Dr. Haddad, hospitalist accepts pt. Medications vancomycin in NS (VANCOCIN) IVPB 1.5 g (1.5 g Intravenous New Bag 09/03/19 1350) morphine injection 8 mg (8 mg Intravenous Given 09/03/19 1317) ondansetron (ZOFRAN) 2 mg/mL injection (4 mg Given 09/03/19 1323) MDM: CBC: mild leukocytosis CMP: ESRD - due for dialysis today Mag: WNL EKG at 13:56 -this rhythm, 75 bpm. Normal intervals. Normal axis. Nonspecific ST/T wave changes. When compared to EKG from 08/10/2019 there is no significant change in morphology 39 y.o. female with history of ESRD on dialysis presents with stopped problem. Vitals: With in normal notes. She is afebrile and overall nontoxic-appearing. She does appear fatigued. She has signs of infection of her recent AV graft incision site. She was started on antib iotics and will be admitted under the hospitalist service for surgical intervention and neph rology consult. Laboratory Evaluation Results Procedure Component Value Ref Range Date/Time Comprehensive Metabolic Panel [[id number]] (Abnormal) Collected: 09/03/19 1332 Order Status: Completed Specimen: Blood Updated: 09/03/19 1415 Na 138 135 - 145 mmol/L K 5.5 3.5 - 4.9 mmol/L Cl 102 99 - 109 mmol/L CO2 27 23 - 32 mmol/L Anion Gap 15 5 - 20 mmol/L Glucose 97 65 - 99 mg/dL BUN 31 8 - 25 mg/dL Creatinine 9.05 0.50 - 1.00 mg/dL BUN/Creatinine Ratio 3 Calcium 9.1 8.5 - 10.5 mg/dL Protein, Total 6.7 6.3 - 8.2 g/dL Albumin 4.0 3.6 - 5.0 g/dL Globulin 2.7 1.3 - 4.9 g/dL A/G Ratio 1.5 1.0 - 2.4 BILIRUBIN, TOTAL 0.2 0.1 - 1.5 mg/dL ALK PHOS 73 35 - 115 U/L AST 12 10 - 45 U/L ALT <7 10 - 65 U/L Estimated GFR 5 >60 mL/min/1.73m2 Magnesium [[id number]] (Abnormal) Collected: 09/03/191331 Order Status: Completed Specimen: Blood Updated: 09/03/19 1415 Magnesium 3.2 1.7 - 2.4 mg/dL CBC with Differential [[id number]] (Abnormal) Collected: 09/03/191331 Order Status: Completed Specimen: Blood Updated: 09/03/19 1356 WBC 13.78 3.80 - 11.00 K/uL RBC 3.97 3.70 - 5.10 M/uL Hemoglobin 11.2 11.3 - 15.5 g/dL Hematocrit 34.8 34.0 - 46.0 % MCV 87.8 80.0 - 100.0 fl MCH 28.3 27.0 - 34.0 pg MCHC 32.2 32.0 - 35.5 g/dL RDW-SD 46.8 37 - 53 fl Platelet Count 270 150 - 400 K/uL MPV 8.2 fl Diff Type AUTOMATED % Neutrophils 87.33 % % Lymphocytes 6.87 % Monocyte % 4.06 % Eosinophils % 1.27 % Basophils % 0.47 % Neutrophils, Absolute 12.04 1.90 - 7.40 K/uL Absolute Lymphocytes 0.95 1.00 - 3.90 K/uL Absolute Monocytes 0.56 0.00 - 0.80 K/uL Eosinophils, Absolute 0.17 0.00 - 0.50 K/uL Basophils, Absolute 0.07 0.00 - 0.10 K/uL RBC Morphology RBC AND PLT MORPHOLOGY APPEAR NORMAL Comment SLIDE SCANNED, AGREES WITH AUTOMATED RESULTS. Available Labs reviewed and interpreted by me. Radiology Evaluation Recent Results (from the past 360 hour(s)) XR Chest 1 Vw Narrative CHEST ONE VIEW CLINICAL INFORMATION: Embolism. COMPARISON: IR GUIDANCE VASCULAR ACCESS US (2019); XR CHEST 2 VIEW FRONTAL AND LATERAL (12/07/2018); XR CHEST 2 VIEW (06/05/2018); FINDINGS: Endotracheal tube ends 1.7 cm above the ben. Large-bore catheter in the right IJ ends in the right atrium. NG tube ends in the upper to mid stomach. Left base consolidation. Low lung volumes accentuate heart size. No pneumothorax seen. Impression Low lung volumes with left base consolidation. Endotracheal tube 1.7 cm above the ben. Right IJ line in the right atrium. NG tube in the upper to mid stomach. Signed by: Daphney Paz Jade Sign Date/Time: 08/26/2019 6:09 PM Available radiology studies reviewed and interpreted contemporaneously by me. Diagnosis 1. Postoperative infection, unspecified type, initial encounter 2. Infected prosthetic vascular graft, initial encounter (HCC) 3. Infected prosthetic vascular graft, initial encounter (HCC) Disposition: ED Disposition ED Disposition Condition Comment Admit Clinical impression: Postoperative infection, unspecified type, initial encounter [[id number]] Clinical impression: Infected prosthetic vascular graft, initial encounter (HCC) [[id number]] Admitting provider: NATASHA HOSPITALIST [[id number]] Expected patient class: Inpatient [101] Level of service: Medical Discharge Medications: This note was dictated using voice recognition software. Please contact me if there are an y questions regarding its content. Lina Longoria PA-C 09/03/19 1806 Associated attestation - Nolberto Siu MD - 09/04/2019 5:05 PM PDTI have reviewed the no te and supervised the mid-level provider. Agree with above results and plan as documented. MD Ham Fuller Marissa R, RN - 09/03/2019 11:[address] Pederson's office. Patient was tr ansferred to [facility] from [facility] last week for a left upper arm rodolfo. Surgery wasn't c ompleted because of bleeding. Had ligation of rodolfo. Called today with redness, pain and warm to the touch of wound. Patient coming after she completes dialysis. documented in this encounter Miscellaneous Notes Op Note - Mundo Ramos MD - 09/10/2019 7:12 AM [facility] OPERATIVE REPORT MUNDO RAMOS MD Patient: RAMONA REEVES Admitting: HILDA HADDAD MR #: [id number] LOC: PT TYPE: Adm Date: 09/03/2019 : 1980 DATE OF OPERATION: 09/03/2019. PREOPERATIVE DIAGNOSIS: Left arm arteriovenous graft infection. POSTOPERATIVE DIAGNOSIS: Left arm arteriovenous graft infection. PROCEDURES PERFORMED: 1. Left axilla exploration. 2. Left arm basilic vein harvest. 3. Removal of infected graft from axillary artery and vein. 4. Patch repair of left axillary artery using basilic vein for patch. 5. Primary repair of left axillary vein. 6. Washout of the axilla with antibiotic solution. 7. Counter incision and removal of infected graft from left upper arm. 8. Wound VAC placement of axilla and the counter incision. SURGEON: Mundo Ramos MD. WASHING MACHINE LOADER: HINA Leon. ANESTHESIA: General endotracheal anesthesia. ESTIMATED BLOOD LOSS: 100 mL. FLUIDS GIVEN: 500 mL of crystalloid. INDICATIONS: Ms. Reeves is a 39-year-old female, who week prior presented with a graft bl owout with massive bleeding from the left axilla. At that time, the graft was oversewn and the wound was closed. The patient now presents with signs of worsening left upper arm pain and severe infection with fever and chills. When the patient was evaluated, the patient was found to have a very tender and indurated left upper arm with some drainage from the left axilla purulent fluid. Therefore, the patient was taken urgently to the operating room for removal of infected graft tissue. FINDINGS: After opening axilla, there was purulent fluid was encountered. The bovine sauceda tid graft on the axillary artery and vein were seen, which were appearing to be melting away from the [place] tissue. Therefore, the basilic vein was harvested and the axillary artery was repaired primarily using a basilic vein patch. The axillary vein was also primarily rep aired. After washout with antibiotic solution, tissue coverage over the artery and vein wa s obtained. A counterincision was then made in the infected graft of the left upper arm and the graft was removed in its entirety. The wound was then washed out with copious amount o f antibiotic solution and a wound VAC was then placed on the wound sites measuring 8 x 4 x 3 cm for the axilla and 7 x 3 x 2 cm for the counter incision. DESCRIPTION OF PROCEDURE: The patient was properly identified and brought to the operating room. The patient was placed supine on the operating table and the patient underwent gener al endotracheal anesthesia. The patient's left arm and axilla was then prepped and draped i n the usual sterile fashion. The sutures around the left axilla were then carefully removed and once the sutures were removed, there were copious amounts of purulent fluid that was d raining from the left axilla. Also, the bovine carotid graft stump seen on both the axillar y artery and the vein were found and appeared to be melting away from the gulkana tissue with significant infection. Therefore, an incision was made in the left upper arm over the basi lic vein. This was deepened with electrocautery and the basilic vein was identified and dis sected. A 2 cm segment of the basilic vein were then ligated and divided and used to creat e a vein patch. Next, the patient was given 5000 units of IV heparin. After 3 minutes, the axillary artery was clamped proximal and distal to the infected graft. The 11 blade was us ed to resect the anastomosis and the infected tissue was then removed in its entirety from t he axillary artery. The axillary artery was then promptly repaired using 5-0 Prolene suture s in a running fashion with the basilic vein patch. Once the anastomosis was completed, th ere was a good pulse in the brachial artery. The patient had good radial and ulnar signals in the left hand. The left axillary vein was also clamped and the infected tissue was also taken off completely from the axillary vein. The axillary vein was then repaired primarily using 5-0 Prolene sutures in a running fashion. After resecting the infected tissue from th e artery and vein, the axilla was then irrigated with copious amounts of antibiotic solutio n. The tissue over the artery and vein were then covered using 3-0 Vicryl sutures. Once th ere was tissue coverage, a counter incision was then made in the left upper arm. This was a lso deepened with electrocautery and the left upper arm arteriovenous graft, which was infec medina, was carefully resected from the left upper arm. There were areas that were very well a dhered, but there were also areas that appeared grossly infected. Once the graft was remov ed in its entirety, both incisions were irrigated with copious amount of antibiotic solution for the axillary and upper arm counter incision. A wound VAC was placed on both the incisi ons. The axilla was measuring 8 x 4 x 3 cm and the counterincision was measured 7 x 3 x 2 c m. This was placed on suction. The incision for the basilic vein was also irrigated with a ntibiotic solution. The deep dermal tissue was then closed with 3-0 Vicryl. The skin was then closed with nate. At the end of the case, sponge, needle and instrument counts were correct times 2. There were no apparent complications. MUNDO RAMOS MD Dictated by MUNDO RAMOS MD 09/10/2019 07:12:32 Transcribed on 09/10/2019 07:41:16 by job# [id number] Confirmation #: [id number] signed by Mundo Ramos MD at 09/10/2019 9:39 AM PDT Plan of Dex - Fartun Harris RN - 09/08/2019 2:27 PM PDT Problem: Adult Inpatient Plan of Care Goal: Plan of Care Review Outcome: Ongoing, progressing lan of Dex - Ella Baron RN - 09/08/2019 5:07 AM PDTNo blood or hospital-applied restraints. A ll protocols followed. All med parameters checked. All orders released. Chart check done. Pt con't to c/o nausea, despite medicating w/ Zofran- note left for MD. Pt is able to use a lcohol swabs for some relief. Pt remains indep in rm. VSS, afebrile. No acute issues. Electr onically signed by Ella Hills RN at 09/08/2019 5:07 AM PDTPlan of Ella Zhang RN - 09/08/2019 1:17 AM PDT Problem: Fall Injury Risk Goal: Absence of Fall and Fall-Related Injury Outcome: Ongoing, progressing Pt indep in rm. Uses call light PRN lan of Vashti Aleman RN - 09/07/2019 6:10 PM PDTEnd of shift chart check complete. Vashti Decker RN Plan of Vashti Aleman RN - 09/07/2019 9:13 AM PDT Problem: Fall Injury Risk Goal: Absence of Fall and Fall-Related Injury Outcome: Ongoing, progressing Patient to call if needing assistance. Bed in locked and lowered position. Call light within reach of the patient. lan of Radha Frias RN - 09/07/2019 2:44 AM PDTPatient is A/Ox4 . VSS. RA. On tele, NSR. Intermittently nauseous at baseline per patient. Zofran IV given TN N. Otherwise tolerating renal diet well. Pain managed well with oxycodone PRN. ESRD on dialy sis. Right IJ HD cath in tact. Anuria. Woundvac with elastic wrap in tact to left upper arm, maintained at 125 mm hg with scant to no output to canister. Left arm elevated on pillows w ith mild swelling. Ambulates independently, family in room helping with cares. End of shift review complete. Radha Carvalho RN 09/07/2019 6:44 Problem: Adult Inpatient Plan of Care Goal: Plan of Care Review Outcome: Ongoing, progressing Goal: Patient-Specific Goal Outcome: Ongoing, progressing Goal: Absence of Hospital-Acquired Illness or Injury Outcome: Ongoing, progressing Goal: Optimal Comfort and Wellbeing Outcome: Ongoing, progressing Goal: Readiness for Transition of Care Outcome: Ongoing, progressing Goal: Rounds/Family Conference Outcome: Ongoing, progressing Problem: Wound Goal: Optimal Wound Healing Outcome: Ongoing, progressing Problem: Fall Injury Risk Goal: Absence of Fall and Fall-Related Injury Outcome: Ongoing, progressing Problem: Skin Injury Risk Increased Goal: Skin Health and Integrity Outcome: Ongoing, progressing [facility] - 09/06/2019 6:23 PM PDT24 hour chart review complete. lan of Dex [facility] Samira coley RN - 09/06/2019 9:39 AM PDT Problem: Fall Injury Risk Goal: Absence of Fall and Fall-Related Injury Outcome: Ongoing, progressing Problem: Adult Inpatient Plan of Care Goal: Absence of Hospital-Acquired Illness or Injury Outcome: Ongoing, progressing ID band on. Bed wheels locked and in lowest position. 2/4 side rails up. Pt instructed to use call light to make needs known, including to wait for staff before ambulating. States un derstanding. Non-skid socks used for ambulating. lan of Dex choudhary, Azeb Hernandez RN - 09/06/2019 6:23 AM PDT Problem: Adult Inpatient Plan of Care Goal: Patient-Specific Goal Outcome: Ongoing, progressing Goal: Optimal Comfort and Wellbeing Outcome: Ongoing, progressing Goal: Rounds/Family Conference Outcome: Ongoing, progressing Problem: Fall Injury Risk Goal: Absence of Fall and Fall-Related Injury Outcome: Ongoing, progressing lan of Karsten Batista RN - 09/05/2019 6:00 PM PDTEnd of shift chart review complete.Electronica lly signed by Karsten Chambers, RN at 09/05/2019 6:30 PM PDTPlan of Ryan Ruiz R N - 09/05/2019 1:43 PM PDTCare Management Initial Assessment Readmission Risk: Medium Status Prior to Admission or Illness Arrival From: admitted as an inpatient Lives With: spouse Living Arrangements: house Caregiver For: no one Patient s Caregiver: other (see comments)(pt has been independent) Functional Status: Caregiving Concerns: no Home Accessibility: Transportation Available: car, family or friend will provide Able to return to prior living: yes Care Management Concerns Last discharge date: Readmission Within Last 30 Days: no previous admission in last 30 days Is Readmission Diagnosis Related to or Same As: Previous Discharging Facility: Previous Discharge Destination From: PCP: No Physician on file Contact Information Family Contact Information: Name: Lyubov Smalls(mother) Pager: Fax: DC Needs Assessment Current Outpt/Agency/Support Groups: outpatient hemodialysis (specify) Community Agency Name: Anticipated Changes Related to Illness: none Concerns to be Addressed: no discharge needs identified Services Anticipated at Discharge: outpatient hemodialysis Equipment Used at Home: none Equipment Needed after Discharge: Durable Medical Equipment Provider: Pharmacy/Medication Needs: other (see comments)(master anderson in [place]) Transportation Needs: none Initial Plan Anticipated Discharge Disposition: home Expected DC Date: yes Steps Taken Toward Discharge: Next Steps: Notes: Pt is very emotional over bad news. Pt will need IV ABX and out pt wound vac. Hue n cath placed for HD with hopes IV ABX will infuse with dialysis . Electronically signed: Ryan Polanco RN 09/05/2019 13:43 lan of Care - Karsten Chambers RN - 09/05/2019 8:00 AM PDT Problem: Adult Inpatient Plan of Care Goal: Plan of Care Review Outcome: Ongoing, progressing Goal: Patient's appetite will return and patient will tolerate oral food and medication. Outcome: Ongoing, progressing Goal: Absence of Hospital-Acquired Illness or Injury Outcome: Ongoing, progressing Goal: Optimal Comfort and Wellbeing Outcome: Ongoing, progressing Goal: Readiness for Transition of Care Outcome: Ongoing, progressing Goal: Rounds/Family Conference Outcome: Ongoing, progressing Problem: Wound Goal: Optimal Wound Healing Outcome: Ongoing, progressing Problem: Fall Injury Risk Goal: Absence of Fall and Fall-Related Injury Outcome: Ongoing, progressing Problem: Skin Injury Risk Increased Goal: Skin Health and Integrity Outcome: Ongoing, progressing lan of Dex [place], Azeb Hernandez RN - 09/05/2019 6:22 AM PDT Problem: Adult Inpatient Plan of Care Goal: Optimal Comfort and Wellbeing Outcome: Ongoing, progressing Goal: Rounds/Family Conference Outcome: Ongoing, progressing Problem: Wound Goal: Optimal Wound Healing Outcome: Ongoing, progressing Problem: Fall Injury Risk Goal: Absence of Fall and Fall-Related Injury Outcome: Ongoing, progressing lan of Yasmeen Limon RN - 09/04/2019 1:19 PM PDT Problem: Adult Inpatient Plan of Care Goal: Plan of Care Review 09/04/2019 1319 by Yasmeen Clemons RN Outcome: Ongoing, progressing 09/04/2019 1319 by Yasmeen Clemons RN Outcome: Ongoing, progressing Goal: Patient-Specific Goal 09/04/2019 1319 by Yasmeen Clemons RN Outcome: Ongoing, progressing 09/04/2019 1319 by Yasmeen Clemons RN Outcome: Ongoing, progressing Goal: Absence of Hospital-Acquired Illness or Injury 09/04/2019 1319 by Yasmeen Clemons RN Outcome: Ongoing, progressing 09/04/2019 1319 by Yasmeen Clemons RN Outcome: Ongoing, progressing Goal: Optimal Comfort and Wellbeing 09/04/2019 1319 by Yasmeen Clemons RN Outcome: Ongoing, progressing 09/04/2019 1319 by Yasmeen Clemons RN Outcome: Ongoing, progressing Goal: Readiness for Transition of Care 09/04/2019 1319 by Yasmeen Clemons RN Outcome: Ongoing, progressing 09/04/2019 1319 by Yasmeen Clemons RN Outcome: Ongoing, progressing Goal: Rounds/Family Conference 09/04/2019 1319 by Yasmeen Clemons RN Outcome: Ongoing, progressing 09/04/2019 1319 by Yasmeen Clemons RN Outcome: Ongoing, progressing Problem: Wound Goal: Optimal Wound Healing 09/04/2019 1319 by Yasmeen Clemons RN Outcome: Ongoing, progressing 09/04/2019 1319 by Yasmeen Clemons RN Outcome: Ongoing, progressing Problem: Fall Injury Risk Goal: Absence of Fall and Fall-Related Injury 09/04/2019 1319 by Yasmeen Clemons RN Outcome: Ongoing, progressing 09/04/2019 1319 by Yasmeen Clemons RN Outcome: Ongoing, progressing Problem: Skin Injury Risk Increased Goal: Skin Health and Integrity 09/04/2019 1319 by Yasmeen Clemons RN Outcome: Ongoing, progressing 09/04/2019 1319 by Yasmeen Clemons RN Outcome: Ongoing, progressing lan of Care - Crystal Ramirez RN - 09/04/2019 12:37 AM PDT Problem: Adult Inpatient Plan of Care Goal: Absence of Hospital-Acquired Illness or Injury Outcome: Ongoing, progressing Intervention: Identify and Manage Fall Risk Note: Call light and overbed table within reach, bed in lowest position with wheels locked, side rails up per policy, non-skid footwear provided and hourly rounds continue. Goal: Optimal Comfort and Wellbeing Outcome: Ongoing, progressing End of shift chart review complete. Electronically signed by Crystal Ramirez RN at 08/11 5:06 AM PDTBrief Op Note - Mundo Ramos MD - 09/03/2019 5:41 PM PDT [facility] Service: Vascular Surgery Brief Op Note Pre-operative Diagnosis: Left arm AV graft infection Post-operative Diagnosis: same Procedure(s): Left axilla exploration Left arm basilic vein harvest Removal of infected graft from axillary artery and vein Patch repair of left axillary artery using basilic vein for patch Primary repair of left axillary vein Washout of axilla with antibiotic solution Counter incision and removal of infected graft from left upper arm Wound vac placement of axilla and counter incision Surgeon: Mundo Ramos MD Stamp Machine Servicer(s): HINA Leon Anesthesia: General endotracheal anesthesia Estimated Blood Loss: 100 ml Other: IV Fluids: 500 ml Indications: See pre-operative history and physical Findings: After opening axilla, purulent fluid was encountered. The bovine carotid stumps on both the axillary artery and vein were melting away from the [place] tissue. Therefore, basilic vein was harvested and axillary artery was repaired primarily using basilic vein pat ch. Axillary vein was primarily repaired. After washout with antibiotic solution, tissue c overage over artery and vein was obtained. A counter incision was then made and infected gr aft was then removed in its entirety. Wound vac was placed on wound sites measuring 8x4x3 c m for axilla and 7x3x2 cm for counter incision. Complications: None apparent Condition: stable See dictated operative report for full details. Mundo Ramos MD 09/03/2019 17:41 documented in this enc ounter Plan of Treatment + +------+--------+ + + | Name | Type | Priori | Associated Diagnoses | Date/Time | | | | ty | | | + +------+--------+ + + | ED INFORMATION | KATIANA | Routin | | 09/03/2019 12:03 PM | | EXCHANGE | | e | | PDT | + +------+--------+ + + + + +--------+ + + | Name | Type | Priori | Associated Diagnoses | Order Schedule | | | | ty | | | + + +--------+ + + | Surgical Pathology | Pathology | Routin | Infected | ONE TIME for 1 | | Exam | and | e | prosthetic vascular | Occurrences starting | | | Cytology | | graft, initial | 09/03/2019 | | | | | encounter (HCC) | | + + +--------+ + + documented as of this encounter Procedures + +--------+ + + + | Procedure Name | Priori | Date/Time | Associated Diagnosis | Comments | | | ty | | | | + +--------+ + + + | CBC NO DIFFERENTIAL | Routin | 09/08/2019 | | Results for this | | | e | 4:47 AM | | procedure are in the | | | | PDT | | results section. | + +--------+ + + + | PHOSPHORUS | Routin | 09/08/2019 | | Results for this | | | e | 4:47 AM | | procedure are in the | | | | PDT | | results section. | + +--------+ + + + | MAGNESIUM | Routin | 09/08/2019 | | Results for this | | | e | 4:47 AM | | procedure are in the | | | | PDT | | results section. | + +--------+ + + + | BASIC METABOLIC | Routin | 09/08/2019 | | Results for this | | PANEL | e | 4:47 AM | | procedure are in the | | | | PDT | | results section. | + +--------+ + + + | CBC NO DIFFERENTIAL | Routin | 09/07/2019 | | Results for this | | | e | 4:31 AM | | procedure are in the | | | | PDT | | results section. | + +--------+ + + + | PHOSPHORUS | Routin | 09/07/2019 | | Results for this | | | e | 4:31 AM | | procedure are in the | | | | PDT | | results section. | + +--------+ + + + | MAGNESIUM | Routin | 09/07/2019 | | Results for this | | | e | 4:31 AM | | procedure are in the | | | | PDT | | results section. | + +--------+ + + + | BASIC METABOLIC | Routin | 09/07/2019 | | Results for this | | PANEL | e | 4:31 AM | | procedure are in the | | | | PDT | | results section. | + +--------+ + + + | CBC NO DIFFERENTIAL | Routin | 09/06/2019 | | Results for this | | | e | 5:14 AM | | procedure are in the | | | | PDT | | results section. | + +--------+ + + + | PHOSPHORUS | Routin | 09/06/2019 | | Results for this | | | e | 5:14 AM | | procedure are in the | | | | PDT | | results section. | + +--------+ + + + | MAGNESIUM | Routin | 09/06/2019 | | Results for this | | | e | 5:14 AM | | procedure are in the | | | | PDT | | results section. | + +--------+ + + + | BASIC METABOLIC | Routin | 09/06/2019 | | Results for this | | PANEL | e | 5:14 AM | | procedure are in the | | | | PDT | | results section. | + +--------+ + + + | CBC NO DIFFERENTIAL | Routin | 09/05/2019 | | Results for this | | | e | 5:26 AM | | procedure are in the | | | | PDT | | results section. | + +--------+ + + + | PHOSPHORUS | Routin | 09/05/2019 | | Results for this | | | e | 5:26 AM | | procedure are in the | | | | PDT | | results section. | + +--------+ + + + | MAGNESIUM | Routin | 09/05/2019 | | Results for this | | | e | 5:26 AM | | procedure are in the | | | | PDT | | results section. | + +--------+ + + + | BASIC METABOLIC | Routin | 09/05/2019 | | Results for this | | PANEL | e | 5:26 AM | | procedure are in the | | | | PDT | | results section. | + +--------+ + + + | ECG 12 LEAD | STAT | 09/05/2019 | | Results for this | | | | 12:56 AM | | procedure are in the | | | | PDT | | results section. | + +--------+ + + + | CBC NO DIFFERENTIAL | Routin | 09/04/2019 | | Results for this | | | e | 4:59 AM | | procedure are in the | | | | PDT | | results section. | + +--------+ + + + | PHOSPHORUS | Routin | 09/04/2019 | | Results for this | | | e | 4:59 AM | | procedure are in the | | | | PDT | | results section. | + +--------+ + + + | MAGNESIUM | Routin | 09/04/2019 | | Results for this | | | e | 4:59 AM | | procedure are in the | | | | PDT | | results section. | + +--------+ + + + | BASIC METABOLIC | Routin | 09/04/2019 | | Results for this | | PANEL | e | 4:59 AM | | procedure are in the | | | | PDT | | results section. | + +--------+ + + + | CULTURE, BLOOD | Routin | 09/03/2019 | | Results for this | | | e | 8:16 PM | | procedure are in the | | | | PDT | | results section. | + +--------+ + + + | ARLENE AGUILERA CG8, | Routin | 09/03/2019 | | Results for this | | ARTERIAL | e | 6:17 PM | | procedure are in the | | | | PDT | | results section. | + +--------+ + + + | CULTURE, TISSUE, | Routin | 09/03/2019 | Infected | Results for this | | SMEAR, WITH | e | 5:23 PM | prosthetic vascular | procedure are in the | | ANAEROBES | | PDT | graft, initial | results section. | | | | | encounter (HCC) | | + +--------+ + + + | POC ISTAJakob, CG8, | Routin | 09/03/2019 | | Results for this | | ARTERIAL | e | 4:30 PM | | procedure are in the | | | | PDT | | results section. | + +--------+ + + + | CULTURE, WOUND, | Routin | 09/03/2019 | Infected | Results for this | | SMEAR, W/ANAEROBE | e | 4:27 PM | prosthetic vascular | procedure are in the | | | | PDT | graft, initial | results section. | | | | | encounter (HCC) | | + +--------+ + + + | REVISION AV FISTULA | | 09/03/2019 | Infected | | | | | 3:32 PM | prosthetic vascular | | | | | PDT | graft, initial | | | | | | encounter (HCC) | | + +--------+ + + + | , SERUM, | STAT | 09/03/2019 | | Results for this | | QUAL | | 3:11 PM | | procedure are in the | | | | PDT | | results section. | + +--------+ + + + | ECG 12 LEAD | Routin | 09/03/2019 | | Results for this | | | e | 1:56 PM | | procedure are in the | | | | PDT | | results section. | + +--------+ + + + | CBC WITH | STAT | 09/03/2019 | | Results for this | | DIFFERENTIAL | | 1:32 PM | | procedure are in the | | | | PDT | | results section. | + +--------+ + + + | MAGNESIUM | STAT | 09/03/2019 | | Results for this | | | | 1:32 PM | | procedure are in the | | | | PDT | | results section. | + +--------+ + + + | COMPREHENSIVE | STAT | 09/03/2019 | | Results for this | | METABOLIC PANEL | | 1:32 PM | | procedure are in the | | | | PDT | | results section. | + +--------+ + + + | ED INFORMATION | Routin | 09/03/2019 | | | | EXCHANGE | e | 12:03 PM | | | | | | PDT | | | + +--------+ + + + +---+--------+ | | | | | Proced | | | ure | | | Note - | | | Endy, | | | Lab In | | | | | | Hlseve | | | n - | | | 10/25/ | | | 2019 | | | 12:04 | | | PM PDT | | | | | | Format | | | [...] | | | FICATI | | | ON?10/ | | | 25/201 | | | 9 | | | 12:02? | | | GOATSE | | | N, | | | RAMONA | | | C?MRN: | | | | | | [id number] | | | [id number] | | | riteri | | | [...] | | | St. | | | [facility] | | | y | | | [...] | | | PATIEN | | | T.Pres | | | cripti | | | on | | | Drug | | | [...] MED | | | | | | 2019-1 | | | 0-01 | | | HYDROC | | | ODONE- | | | ACETAM | | | IN | | | 5-325 | | | MG 6 | | | STEVEN | | | STEPHE | | | NS 2 0 | | | | | | 2019-0 [...] | | II-V | | | Rx 2 | | | CS-II | | | Rx 2 | | | Quanti | | | ty | | | Dispen | | | sed 36 | | | | | | Unique | | | | | | Prescr | | | ibers | | | 2 | | | Unique | | | [...] | | | Center | | | 7 0 | | | [facility] | | [facility] | | | al 6 0 | | | Total | | | 14 0 | | | Note: | | [...] | | out | | | of 14 | | | in the | | [...] | | int | | | Oct | | | 25, | | | 2019 | | | [facility] | | | | | | [facility] | | | [facility] | | [facility] | | [place] | | | [place] | | | Emerge | | | ncy | | | Arm | | | Pain | | | Oct | | | 13, | | | 2019 | | | [facility] | [facility] | | | [place] | | | [place] | | | Emerge | | | ncy | | | | | | Depend | | | ence | | | on | | | renal | | | dialys | | | is | | | Essent | | | ial | | | (prima | | | ry) | | | hypert | | | ension | | | | | | Other | | | long | | | term | | | (curre | | | nt) | | | drug | | | therap | | | y | | | Unspec | | | ified | | | abdomi | | | nal | | | pain | | | Oct 1, | | [...] Pain | | | | | | Genera | | | lized | | | abdomi | | | nal | | | pain | | | End | | | stage | | | renal | | | diseas | | | e | | | Depend | | | ence | | | on | | | renal | | | dialys | | | is | | | Hyperk | | | alemia | | | | | | Oth | | | noninf | | | lammat | | | ory | | | disord | | | of | | | ovary, | | | | | | fallop | | | and | | | broad | | | ligmt | | | Miguel A | | [...] | | | Person | | | w | | | feared | | | hlth | | | compla | | | [...] | | | [facility] | | | [facility] | | | [facility] | | [...] | | | [facility] | | | [place] | | | [facility] | | [...] Pain | | | | | | Dvtrcl | | | i of | | | intest | | | , part | | | unsp, | | | w/o | | | perf | | | or | | | absces | | | s w/o | | | bleed | | | | | | Depend | | | ence | | | on | | | renal | | | dialys | | | is | | | End | | | stage | | | renal | | | diseas | | | e | | | [place] | | | lemia | | | | | | Recent [...] | | | e | | | Oth | | | person | | | al | | | risk | | | factor | | | s, not | | | | | | elsewh | | | ere | | | classi | | | fied | | | Oth | | | disord | | | ers of | | | | | | plasma | | | -prote | | | in | | | metabo | | | lism, | | | NEC | | | | | | Anemia | | | in | | | chroni | | | c | | | kidney | | | | | | diseas | | | e | | | SIRS | | | of | | | non-in | | | fectio | | | us | | | origin | | | w/o | | | acute | | | organ | | | dysfun | | | ction | | | | | | Infect | | | /inflm | | | | | | reacti | | | on due | | | to | | | perito | | | n | | | dialys | | | is | | | cathet | | | er, | | | init | | | | | | Noninf | | | lammat | | | ory | | | disord | | | of | | | ovary, | | | | | | fallop | | | and | | | broad | | | ligmt, | | | unsp | | | Feb | | | 26, | | | 2019 | | | [facility] | | | | | | [facility] | | | al | | | [facility] | | | [place] | | | [place] | | | Recove | | | ry | | | [place] | | | lemia | | | | | | Dvtrcl | | | i of | | | intest | | | , part | | | unsp, | | | w/o | | | perf | | | or | | | absces | | | s w/o | | | bleed | | | | | | Depend [...] | | | lism | | | Oth | | | disord | | | ers of | | | | | | plasma | | | -prote | | | in | | | metabo | | | lism, | | | NEC | | | Aquiles | | | [...] | | | Infect | | | /inflm | | | | | | reacti | | | on due | | | to | | | perito | | | n | | | dialys | | | is | | | cathet | | | er, | | | subs | | | | | | Anemia [...] | | | t | | | Unknow | | | n | | | Clinic | | | /Cente | | | r | | | ([phone]) | | | [phone] | | | 30 | | | Oct | | | 14, | | | 2019 - | | [...] | | | /notif | | | y/207a | | | [id number] | | | 71f-45 | | | [phone] | | | 0-083d | | | [id number] | | | 55 | | | PLEASE | | | [...] | | | ed.? | | | 2018 | | | [facility] | | | tive | | | [employer] | | | l | | | [employer] | | | logies | | | , [employer] | | | - | | | [email or web address] | | | llecti | | | vemedi | | | [email or web address] | | | m | +---+--------+ documented in this encounter Results Phosphorus (09/08/2019 4:47 AM PDT) + + + + + + | Component | Value | Ref Range | Performed | Pathologist | | | | | At | Signature | + + + + + + | Phosphorus | 5.3 (H)Comment: Testing | 2.3 - 4.8 mg/dL | [facility] | | | | performed at [facility], [address] | | LABORATORY | | | | [address], | | | | | | [place] [address] | | | | + + + + + + + + | Specimen | + + | Blood | + + + + + + + | Performing | Address | City/State/Zipcode | Phone Number | | Organization | | | | + + + + + | [facility] | [address] | [place] [address] | [phone] | + + + + + Magnesium (09/08/2019 4:47 AM PDT) + + + + + + | Component | Value | Ref Range | Performed | Pathologist | | | | | At | Signature | + + + + + + | Magnesium | 2.9 (H)Comment: Testing | 1.7 - 2.4 mg/dL | [facility] | | | | performed at [facility], [address] | | LABORATORY | | | | [address], | | | | | | [place] [address] | | | | + + + + + + + + | Specimen | + + | Blood | + + + + + + + | Performing | Address | City/State/Zipcode | Phone Number | | Organization | | | | + + + + + | [facility] | [address] | [place] [address] | [phone] | + + + + + Basic Metabolic Panel (09/08/2019 4:47 AM PDT) + + + + + [...] | 4.2 | 3.5 - 4.9 | [facility] | [...] + + + + | Glucose | 99 | 65 - 99 mg/dL | [facility] | | | | | | LABORATORY | | + + + + + + | BUN | 24 | 8 - 25 mg/dL | [facility] | | | | | | LABORATORY | | + + + + + + | Creatinine | 10.0 (H) | 0.50 - 1.00 | [facility] | | | | | mg/dL | LABORATORY | | + + + + + + | BUN/Creatin | 2 | | [facility] | | | ine Ratio | | | LABORATORY | | + + + + + + | Calcium | 9.2 | 8.5 - 10.5 | [facility] | | | | | mg/dL | LABORATORY | | + + + + + + | Estimated | 4 (L)Comment: GFR <60: | >60 | [facility] [...] | | | | | performed at [facility], [address] | | | | | | [address] [facility], | | | | | | [place] [address] | | | | + + + + + + + + | Specimen | + + | Blood | + + + + + + + | Performing | Address | City/State/Zipcode | Phone Number | | Organization | | | | + + + + + | [facility] | [address] | [place] [address] | [phone] | + + + + + CBC no Differential (09/08/2019 4:47 AM PDT) + + + + + + | Component | Value | Ref Range | Performed | Pathologist | | | | | At | Signature | + + + + + + | WBC | 8.38 | 3.80 - 11.00 | [facility] | | | | | K/uL | LABORATORY | | + + + + + + | RBC | 3.57 (L) | 3.70 - 5.10 | [facility] | | | | | M/uL | LABORATORY | | + + + + + + | Hemoglobin | 10.6 (L) | 11.3 - 15.5 | [facility] | | | | | g/dL | LABORATORY | | + + + + + + | Hematocrit | 31.9 (L) | 34.0 - 46.0 [...] + + + + | RDW-SD | 45.5 | 37 - 53 fl | [facility] | | | | | | LABORATORY | | + + + + + + | Platelet | 286 | 150 - 400 K/uL | [facility] | | | Count | | | LABORATORY | | + + + + + + | MPV | 8.6Comment: Testing | fl | [facility] | | | | performed at [facility], [address] | | LABORATORY | | | | [address], | | | | | | [place] [address] | | | | + + + + + + + + | Specimen | + + | Blood | + + + + + + + | Performing | Address | City/State/Zipcode | Phone Number | | Organization | | | | + + + + + | [facility] | [address] | [place] [address] | [phone] | + + + + + Phosphorus (09/07/2019 4:31 AM PDT) + + + + + + | Component | Value | Ref Range | Performed | Pathologist | | | | | At | Signature | + + + + + + | Phosphorus | 4.1Comment: Testing | 2.3 - 4.8 mg/dL | [facility] | | | | performed at [facility], [address] | | LABORATORY | | | | [address], | | | | | | [place] [address] | | | | + + + + + + + + | Specimen | + + | Blood | + + + + + + + | Performing | Address | City/State/Zipcode | Phone Number | | Organization | | | | + + + + + | [facility] | [address] | [place] [address] | [phone] | + + + + + Magnesium (09/07/2019 4:31 AM PDT) + + + + + + | Component | Value | Ref Range | Performed | Pathologist | | | | | At | Signature | + + + + + + | Magnesium | 2.5 (H)Comment: Testing | 1.7 - 2.4 mg/dL | [facility] | | | | performed at [facility], [address] | | LABORATORY | | | | [address], | | | | | | [place] [address] | | | | + + + + + + + + | Specimen | + + | Blood | + + + + + + + | Performing | Address | City/State/Zipcode | Phone Number | | Organization | | | | + + + + + | [facility] | [address] | [place] [address] | [phone] | + + + + + Basic Metabolic Panel (09/07/2019 4:31 AM PDT) + + + + [...] + + + + | K | 4.8 | 3.5 - 4.9 | [facility] | [...] + + + | Anion Gap | 12 | 5 - 20 mmol/L | [facility] | | | | | | LABORATORY | | + + + + + + | Glucose | 93 | 65 - 99 mg/dL | [facility] | | | | | | LABORATORY | | + + + + + + | BUN | 19 | 8 - 25 mg/dL | [facility] | | | | | | LABORATORY | | + + + + + + | Creatinine | 6.6 (H) | 0.50 - 1.00 | [facility] | | | | | mg/dL | LABORATORY | | + + + + + + | BUN/Creatin | 3 | | [facility] | | | ine Ratio | | | LABORATORY | | + + + + + + | Calcium | 8.6 | 8.5 - 10.5 | [facility] | | | | | mg/dL | LABORATORY | | + + + + + + | Estimated | 7 (L)Comment: GFR <60: | >60 | [facility] [...] | | | | | performed at [facility], [address] | | | | | | [address], | | | | | | [place] [address] | | | | + + + + + + + + | Specimen | + + | Blood | + + + + + + + | Performing | Address | City/State/Zipcode | Phone Number | | Organization | | | | + + + + + | [facility] | [address] | [place] [address] | [phone] | + + + + + CBC no Differential (09/07/2019 4:31 AM PDT) + + + + + + | Component | Value | Ref Range | Performed | Pathologist | | | | | At | Signature | + + + + + + | WBC | 8.66 | 3.80 - 11.00 | [facility] | | | | | K/uL | LABORATORY | | + + + + + + | RBC | 3.66 (L) | 3.70 - 5.10 | [facility] | | | | | M/uL | LABORATORY | | + + + + + + | Hemoglobin | 10.9 (L) | 11.3 - 15.5 | [facility] | | | | | g/dL | LABORATORY | | + + + + + + | Hematocrit | 32.5 (L) | 34.0 - 46.0 % | [facility] | | | | | | LABORATORY | | + + + + + + | MCV | 88.9 | 80.0 - 100.0 fl | [facility] | | | | | | LABORATORY | | + + + + + + | MCH | 29.9 | 27.0 - 34.0 pg | [facility] | | | | | | LABORATORY | | + + + + + + | MCHC | 33.6 | 32.0 - 35.5 | [facility] | | | | | g/dL | LABORATORY | | + + + + + + | RDW-SD | 44.6 | 37 - 53 fl | [facility] | | | | | | LABORATORY | | + + + + + + | Platelet | 286 | 150 - 400 K/uL | [facility] | | | Count | | | LABORATORY | | + + + + + + | MPV | 8.7Comment: Testing | fl | [facility] | | | | performed at [facility], [address] | | LABORATORY | | | | [facility], | | | | | | [place] [address] | | | | + + + + + + + + | Specimen | + + | Blood | + + + + + + + | Performing | Address | City/State/Zipcode | Phone Number | | Organization | | | | + + + + + | [facility] | [address] | [place] [address] | [phone] | + + + + + Phosphorus (09/06/2019 5:14 AM PDT) + + + + + + | Component | Value | Ref Range | Performed | Pathologist | | | | | At | Signature | + + + + + + | Phosphorus | 6.3 (H)Comment: Testing | 2.3 - 4.8 mg/dL | [facility] | | | | performed at [facility], [address] | | LABORATORY | | | | [address], | | | | | | [place] [address] | | | | + + + + + + + + | Specimen | + + | Blood | + + + + + + + | Performing | Address | City/State/Zipcode | Phone Number | | Organization | | | | + + + + + | [facility] | [address] | [place] [address] | [phone] | + + + + + Magnesium (09/06/2019 5:14 AM PDT) + + + + + + | Component | Value | Ref Range | Performed | Pathologist | | | | | At | Signature | + + + + + + | Magnesium | 3.2 (H)Comment: Testing | 1.7 - 2.4 mg/dL | [facility] | | | | performed at [facility], [address] | | LABORATORY | | | | [address], | | | | | | [place] [address] | | | | + + + + + + + + | Specimen | + + | Blood | + + + + + + + | Performing | Address | City/State/Zipcode | Phone Number | | Organization | | | | + + + + + | [facility] | [address] | [place] [address] | [phone] | + + + + + Basic Metabolic Panel (09/06/2019 5:14 AM PDT) + + + + + + | Component | Value | Ref Range | Performed | Pathologist | | | | | At | Signature | + + + + + + | Na | 135 | 135 - 145 | [facility] | | | | | mmol/L | LABORATORY | | + + + + + + | K | 4.5 | 3.5 - 4.9 | [facility] | [...] + + + | Anion Gap | 15 | 5 - 20 mmol/L | [facility] | | | | | | LABORATORY | | + + + + + + | Glucose | 78 | 65 - 99 mg/dL | [facility] | | | | | | LABORATORY | | + + + + + + | BUN | 47 (H) | 8 - 25 mg/dL | [facility] | | | | | | LABORATORY | | + + + + + + | Creatinine | 11.3 (H) | 0.50 - 1.00 | [facility] | | | | | mg/dL | LABORATORY | | + + + + + + | BUN/Creatin | 4 | | [facility] | | | ine Ratio | | | LABORATORY | | + + + + + + | Calcium | 8.6 | 8.5 - 10.5 | [facility] | | | | | mg/dL | LABORATORY | | + + + + + + | Estimated | 4 (L)Comment: GFR <60: | >60 | [facility] [...] | | | | | | MDRD [facility] traceable | | | | | | equation.Testing | | | | | | performed at [facility], [address] | | | | | | [facility], | | | | | | [place] [address] | | | | + + + + + + + + | Specimen | + + | Blood | + + + + + + + | Performing | Address | City/State/Zipcode | Phone Number | | Organization | | | | + + + + + | [facility] | [address] | [place] [address] | [phone] | + + + + + CBC no Differential (09/06/2019 5:14 AM PDT) + + + + + + | Component | Value | Ref Range | Performed | Pathologist | | | | | At | Signature | + + + + + + | WBC | 8.65 | 3.80 - 11.00 | [facility] | | | | | K/uL | LABORATORY | | + + + + + + | RBC | 3.36 (L) | 3.70 - 5.10 | [facility] | | | | | M/uL | LABORATORY | | + + + + + + | Hemoglobin | 10.1 (L) | 11.3 - 15.5 | [facility] | | | | | g/dL | LABORATORY | | + + + + + + | Hematocrit | 29.7 (L) | 34.0 - 46.0 % | [facility] | | | | | | LABORATORY | | + + + + + + | MCV | 88.5 | 80.0 - 100.0 fl | [facility] | | | | | | LABORATORY | | + + + + + + | MCH | 30.1 | 27.0 - 34.0 pg | [facility] | | | | | | LABORATORY | | + + + + + + | MCHC | 34.0 | 32.0 - 35.5 | [facility] | | | | | g/dL | LABORATORY | | + + + + + + | RDW-SD | 43.3 | 37 - 53 fl | [facility] | | | | | | LABORATORY | | + + + + + + | Platelet | 276 | 150 - 400 K/uL | [facility] | | | Count | | | LABORATORY | | + + + + + + | MPV | 8.7Comment: Testing | fl | [facility] | | | | performed at [facility], [address] | | LABORATORY | | | | [address], | | | | | | [place] [address] | | | | + + + + + + + + | Specimen | + + | Blood | + + + + + + + | Performing | Address | City/State/Zipcode | Phone Number | | Organization | | | | + + + + + | [facility] | [address] | [place] [address] | [phone] | + + + + + Phosphorus (09/05/2019 5:26 AM PDT) + + + + + + | Component | Value | Ref Range | Performed | Pathologist | | | | | At | Signature | + + + + + + | Phosphorus | 4.8Comment: Testing | 2.3 - 4.8 mg/dL | [facility] | | | | performed at [facility], [address] | | LABORATORY | | | | [address], | | | | | | [place] [address] | | | | + + + + + + + + | Specimen | + + | Blood | + + + + + + + | Performing | Address | City/State/Zipcode | Phone Number | | Organization | | | | + + + + + | [facility] | [address] | [place] [address] | [phone] | + + + + + Magnesium (09/05/2019 5:26 AM PDT) + + + + + + | Component | Value | Ref Range | Performed | Pathologist | | | | | At | Signature | + + + + + + | Magnesium | 3.0 (H)Comment: Testing | 1.7 - 2.4 mg/dL | [facility] | | | | performed at [facility], [address] | | LABORATORY | | | | [facility], | | | | | | [place] [address] | | | | + + + + + + + + | Specimen | + + | Blood | + + + + + + + | Performing | Address | City/State/Zipcode | Phone Number | | Organization | | | | + + + + + | [facility] | [address] | [place] [address] | [phone] | + + + + + Basic Metabolic Panel (09/05/2019 5:26 AM PDT) + + + + + + | Component | Value | Ref Range | Performed | Pathologist | | | | | At | Signature | + + + + + + | Na | 136 | 135 - 145 | [facility] | | | | | mmol/L | LABORATORY | | + + + + + + | K | 4.1 | 3.5 - 4.9 | [facility] | | | | | mmol/L | LABORATORY | | + + + + + + | Cl | 100 | 99 - 109 mmol/L | [facility] | | | | | | LABORATORY | | + + + + + + | CO2 | 27 | 23 - 32 mmol/L | [facility] | | | | | | LABORATORY | | + + + + + + | Anion Gap | 13 | 5 - 20 mmol/L | [facility] | | | | | | LABORATORY | | + + + + + + | Glucose | 91 | 65 - 99 mg/dL | [facility] | | | | | | LABORATORY | | + + + + + + | BUN | 36 (H) | 8 - 25 mg/dL | [facility] | | | | | | LABORATORY | | + + + + + + | Creatinine | 8.7 (H) | 0.50 - 1.00 | [facility] | | | | | mg/dL | LABORATORY | | + + + + + + | BUN/Creatin | 4 | | [facility] | | | ine Ratio | | | LABORATORY | | + + + + + + | Calcium | 9.4 | 8.5 - 10.5 | [facility] | | | | | mg/dL | LABORATORY | | + + + + + + | Estimated | 5 (L)Comment: GFR <60: | >60 | [facility] | | | GFR | CHRONIC KIDNEY [...] | | | | | | [facility]D [facility] traceable | | | | | | equation.Testing | | | | | | performed at [facility], [address] | | | | | | [facility], | | | | | | [place] [address] | | | | + + + + + + + + | Specimen | + + | Blood | + + + + + + + | Performing | Address | City/State/Zipcode | Phone Number | | Organization | | | | + + + + + | [facility] | [address] | [place] [address] | [phone] | + + + + + CBC no Differential (09/05/2019 5:26 AM PDT) + + + + + + | Component | Value | Ref Range | Performed | Pathologist | | | | | At | Signature | + + + + + + | WBC | 11.09 (H) | 3.80 - 11.00 | [facility] | | | | | K/uL | LABORATORY | | + + + + + + | RBC | 3.63 (L) | 3.70 - 5.10 | [facility] | | | | | M/uL | LABORATORY | | + + + + + + | Hemoglobin | 10.6 (L) | 11.3 - 15.5 | [facility] | | | | | g/dL | LABORATORY | | + + + + + + | Hematocrit | 32.5 (L) | 34.0 - 46.0 % | [facility] | | | | | | LABORATORY | | + + + + + + | MCV | 89.5 | 80.0 - 100.0 fl | [facility] | | | | | | LABORATORY | | + + + + + + | MCH | 29.2 | 27.0 - 34.0 pg | [facility] | | | | | | LABORATORY | | + + + + + + | MCHC | 32.6 | 32.0 - 35.5 | [facility] | | | | | g/dL | LABORATORY | | + + + + + + | RDW-SD | 45.1 | 37 - 53 fl | [facility] | | | | | | LABORATORY | | + + + + + + | Platelet | 288 | 150 - 400 K/uL | [facility] | | | Count | | | LABORATORY | | + + + + + + | MPV | 8.8Comment: Testing | fl | [facility] | | | | performed at [facility], [address] | | LABORATORY | | | | [address], | | | | | | [place] [address] | | | | + + + + + + + + | Specimen | + + | Blood | + + + + + + + | Performing | Address | City/State/Zipcode | Phone Number | | Organization | | | | + + + + + | [facility] | [address] | [place] [address] | [phone] | + + + + + ECG 12 lead (09/05/2019 12:56 AM PDT) + + + + + + | Component | Value | Ref Range | Performed | Pathologist | | | | | At | Signature | + + + + + + | VENTRICULAR | 112 | BPM | [facility] | | | RATE EKG | | | | | + + + + + + | ATRIAL RATE | 112 | BPM | [facility] | | + + + + + + | P-R | 144 | ms | [facility] | | | INTERVAL | | | | | + + + + + + | QRS | 82 | ms | [facility] | | | DURATION | | | | | + + + + + + | Q-T | 336 | ms | [facility] | | | INTERVAL | | | | | + + + + + + | Q-T | 458 | ms | [facility] | | | INTERVAL | | | | | | (CORRECTED) | | | | | + + + + + + | P WAVE AXIS | 62 | degrees | [facility] | | + + + + + + | QRS AXIS | 108 | degrees | [facility] | | + + + + + + | T AXIS | 74 | degrees | [facility] | | + + + + + + | INTERPRETAT | Sinus | | [facility] | | | ION TEXT | tachycardiaRightward | | | | | | axisNonspecific ST | | | | | | abnormalityAbnormal | | | | | | ECGWhen compared with | | | | | | ECG of 03-SEP-2019 | | | | | | 13:56,Vent. rate has | | | | | | increased BY 37 | | | | | | BPMNonspecific ST | | | | | | abnormality now | | | | | | presentConfirmed by Emiliano | | | | | | Giovanny MONCADA ([id number]) on | | | | | | 09/05/2019 10:14:21 PM | | | | + + [...] | | + +---------+ + + Phosphorus (09/04/2019 4:59 AM PDT) + + + + + + | Component | Value | Ref Range | Performed | Pathologist | | | | | At | Signature | + + + + + + | Phosphorus | 3.3Comment: Testing | 2.3 - 4.8 mg/dL | [facility] | | | | performed at [facility], [address] | | LABORATORY | | | | [address], | | | | | | [place] [address] | | | | + + + + + + + + | Specimen | + + | Blood | + + + + + + + | Performing | Address | City/State/Zipcode | Phone Number | | Organization | | | | + + + + + | [facility] | [address] | [place] [address] | [phone] | + + + + + Magnesium (09/04/2019 4:59 AM PDT) + + + + + + | Component | Value | Ref Range | Performed | Pathologist | | | | | At | Signature | + + + + + + | Magnesium | 2.5 (H)Comment: Testing | 1.7 - 2.4 mg/dL | [facility] | | | | performed at [facility], [address] | | LABORATORY | | | | [address], | | | | | | [place] [address] | | | | + + + + + + + + | Specimen | + + | Blood | + + + + + + + | Performing | Address | City/State/Zipcode | Phone Number | | Organization | | | | + + + + + | [facility] | [address] | [place] [address] | [phone] | + + + + + Basic Metabolic Panel (09/04/2019 4:59 AM PDT) + + + + + + | Component | Value | Ref Range | Performed | Pathologist | | | | | At | Signature | + + + + + + | Na | 133 (L) | 135 - 145 | [facility] | | | | | mmol/L | LABORATORY | | + + + + + + | K | 4.8 | 3.5 - 4.9 | [facility] | | | | | mmol/L | LABORATORY | | + + + + + + | Cl | 98 (L) | 99 - 109 mmol/L | [facility] | | | | | | LABORATORY | | + + + + + + | CO2 | 30 | 23 - 32 mmol/L | [facility] | | | | | | LABORATORY | | + + + + + + | Anion Gap | 10 | 5 - 20 mmol/L | [facility] | | | | | | LABORATORY | | + + + + + + | Glucose | 117 (H) | 65 - 99 mg/dL | [facility] | | | | | | LABORATORY | | + + + + + + | BUN | 18 | 8 - 25 mg/dL | [facility] | | | | | | LABORATORY | | + + + + + + | Creatinine | 5.8 (H) | 0.50 - 1.00 | [facility] | | | | | mg/dL | LABORATORY | | + + + + + + | BUN/Creatin | 3 | | [facility] | | | ine Ratio | | | LABORATORY | | + + + + + + | Calcium | 8.7 | 8.5 - 10.5 | [facility] | | | | | mg/dL | LABORATORY | | + + + + + + | Estimated | 8 (L)Comment: GFR <60: | >60 | [facility] [...] | | | | | | MDRD IDRI traceable | | | | | | equation.Testing | | | | | | performed at [facility], [address] | | | | | | [facility], | | | | | | [place] [address] | | | | + + + + + + + + | Specimen | + + | Blood | + + + + + + + | Performing | Address | City/State/Zipcode | Phone Number | | Organization | | | | + + + + + | [facility] | [address] | [place] [address] | [phone] | + + + + + CBC no Differential (09/04/2019 4:59 AM PDT) + + + + + + | Component | Value | Ref Range | Performed | Pathologist | | | | | At | Signature | + + + + + + | WBC | 13.90 (H) | 3.80 - 11.00 | [facility] | | | | | K/uL | LABORATORY | | + + + + + + | RBC | 3.59 (L) | 3.70 - 5.10 | [facility] | | | | | M/uL | LABORATORY | | + + + + + + | Hemoglobin | 10.6 (L) | 11.3 - 15.5 | [facility] | | | | | g/dL | LABORATORY | | + + + + + + | Hematocrit | 32.0 (L) | 34.0 - 46.0 % | [facility] | | | | | | LABORATORY | | + + + + + + | MCV | 88.9 | 80.0 - 100.0 fl | [facility] | | | | | | LABORATORY | | + + + + + + | MCH | 29.5 | 27.0 - 34.0 pg | [facility] [...] + + + + | Platelet | 252 | 150 - 400 K/uL | [facility] | | | Count | | | LABORATORY | | + + + + + + | MPV | 8.7Comment: Testing | fl | [facility] | | | | performed at [facility], [address] | | LABORATORY | | | | [address], | | | | | | [place] [address] | | | | + + + + + + + + | Specimen | + + | Blood | + + + + + + + | Performing | Address | City/State/Zipcode | Phone Number | | Organization | | | | + + + + + | [facility] | [address] | [place] [address] | [phone] | + + + + + Culture, Blood (09/03/2019 8:16 PM PDT) + + + + + + | Component | Value | Ref Range | Performed | Pathologist | | | | | At | Signature | + + + + + + | Special | DIALYSIS PORT | | [facility] | | | Requests | | | LABORATORY | | + + + + + + | Special | Testing performed at | | [facility] | | | Requests | [facility] [facility] | | LABORATORY | | | | [place] [address] | | | | + + + + + + | RESULT | NO GROWTH 6 DAYS | | [facility] | | | | | | LABORATORY | | + + + + + + | RESULT | Testing performed at | | [facility] | | | | [facility], [address] [facility] | | LABORATORY | | | | [place] | | | | | | [id number]: Testing | | | | | | performed at [facility], [facility] | | | | | | [address], [place] | | | | | | [address] | | | | + + + + + + + + | Specimen | + + | Blood | + + + + + + + | Performing | Address | City/State/Zipcode | Phone Number | | Organization | | | | + + + + + | [facility] | [address] | [place] [address] | [phone] | + + + + + POC WILLY CG8, Arterial (09/03/2019 6:17 PM PDT) + + + + + + | Component | Value | Ref Range | Performed | Pathologist | | | | | At | Signature | + + + + + + | pH, | 7.402 | 7.350 - 7.450 | [facility] | | | Arterial, | | | LABORATORY | | | POC | | | | | + + + + + + | pCO2, | 36 | 35 - 45 mmHg | [facility] | | | Arterial | | | LABORATORY | | + + + + + + | pO2, | 184 (H) | 80 - 105 mmHg | [facility] | | | Arterial | | | LABORATORY | | + + + + + + | HCO3, | 22 | 22 - 26 mmol/L | [facility] | | | Arterial | | | LABORATORY | | + + + + + + | TCO2, | 23 | 23 - 27 mEq/L | [facility] [...] + + + + | SO2, | 100 (H) | 95 - 98 % | [facility] | | | Arterial, | | | LABORATORY | | | POC | | | | | + + + + + + | Sodium, POC | 136 | 135 - 145 mEq/L | [facility] | | | | | | LABORATORY | | + + + + + + | Potassium, | 4.7 | 3.5 - 5.0 mEq/L | [facility] | | | POC | | | LABORATORY | | + + + + + + | Ionized | 1.09 (L) | 1.12 - 1.32 | [facility] | | | Calcium, | | mmol/L | LABORATORY | | | POC | | | | | + + + + + + | Glucose, | 99 | 65 - 99 mg/dL | [facility] | | | POC | | | LABORATORY | | + + + + + + | Hematocrit, | 31 (L) | 35.0 - 46.0 % | [facility] | | | POC | | | LABORATORY | | + + + + + + | Hemoglobin, | 10.5 (L)Comment: Testing | 11.6 - 15.5 | [facility] | | | POC | performed at [facility];[address] | g/dL | LABORATORY | | | | [address];[place] | | | | | | [address] | | | | + + + + + + + + | Specimen | + + | | + + + + + + + | Performing | Address | City/State/Zipcode | Phone Number | | Organization | | | | + + + + + | [facility] | [address] | [place] [address] | [phone] | + + + + + Culture, Tissue, Smear, with Anaerobes (09/03/2019 5:23 PM PDT) + + + + + + | Component | Value | Ref Range | Performed | Pathologist | | | | | At | Signature | + + + + + + | Special | L ARM | | [facility] | | | Requests | | | LABORATORY | | + + + + + + | Special | Testing performed at | | [facility] | | | Requests | [facility];[address] | LABORATORY | | | | [address];[place] [address] | | | | + + + + + + | Gram Stain | 3+ | | [facility] | | | Result | WBC'S SEEN | | LABORATORY | | | | | | | | + + + + + + | Gram Stain | 4+ | | [facility] | | | Result | GRAM POSITIVE COCCI | | LABORATORY | | | | | | | | + + + + + + | Gram Stain | Testing performed at | | [facility] | | | Result | [facility] | | LABORATORY | | | | [place] | | | | | | [address] | | | | + + + + + + | RESULT | 2+ENTEROCOCCUS | | [facility] | | | | FAECALISAminoglycosides | | LABORATORY | | | | (except for high-level | | | | | | resistance testing), | | | | | | cephalosporins, | | | | | | clindamycin, and | | | | | | trimethoprim-sulfamethox | | | | | | azole may appear active | | | | | | in vitro but they are | | | | | | not effective | | | | | | clinically. (A) | | | | + + + + + + + + | Specimen | + + | Tissue - Left upper | | arm structure (body | | structure) | + + + + +--------+ + | Organism | Antibiotic | Method | Susceptibility | + + +--------+ + | Enterococcus | Ampicillin | CORINNE | SUSCEPTIBLE: | | faecalis | | | Sensitive | + + +--------+ + | Enterococcus | Penicillin G | CORINNE | SUSCEPTIBLE: | | faecalis | | | Sensitive | + + +--------+ + | Enterococcus | Levofloxacin | CORINNE | SUSCEPTIBLE: | | faecalis | | | Sensitive | + + +--------+ + | Enterococcus | Vancomycin | CORINNE | SUSCEPTIBLE: | | faecalis | | | Sensitive | + + +--------+ + +---+ + | | Comment: Testing | | | performed at [facility], | | | [address], | | | [place] [address] | +---+ + + + + + + | Performing | Address | City/State/Zipcode | Phone Number | | Organization | | | | + + + + + | [facility] | [address] | [place] [address] | [phone] | + + + + + POC WILLY, CG8, Arterial (09/03/2019 4:30 PM PDT) + + + + + + | Component | Value | Ref Range | Performed | Pathologist | | | | | At | Signature | + + + + + + | pH, | 7.410 | 7.350 - 7.450 | [facility] | | | Arterial, | | | LABORATORY | | | POC | | | | | + + + + + + | pCO2, | 42 | 35 - 45 mmHg | [facility] | | | Arterial | | | LABORATORY | | + + + + + + | pO2, | 320 (HH) | 80 - 105 mmHg | [facility] | | | Arterial | | | LABORATORY | | + + + + + + | HCO3, | 27 (H) | 22 - 26 mmol/L | [facility] | | | Arterial | | | LABORATORY | | + + + + + + | TCO2, | 28 (H) | 23 - 27 mEq/L | [facility] | | | Arterial, | | | LABORATORY | | | POC | | | | | + + + + + + | Base | 2 | 0 - 3 mEq/L | [facility] | | | Excess, POC | | | LABORATORY | | + + + + + + | SO2, | 100 (H) | 95 - 98 % | [facility] | | | Arterial, | | | LABORATORY | | | POC | | | | | + + + + + + | Sodium, POC | 134 (L) | 135 - 145 mEq/L | [facility] | | | | | | LABORATORY | | + + + + + + | Potassium, | 4.8 | 3.5 - 5.0 mEq/L | [facility] | | | POC | | | LABORATORY | | + + + + + + | Ionized | 1.13 | 1.12 - 1.32 | [facility] | | | Calcium, | | mmol/L | LABORATORY | | | POC | | | | | + + + + + + | Glucose, | 88 | 65 - 99 mg/dL | [facility] | | | POC | | | LABORATORY | | + + + + + + | Hematocrit, | 32 (L) | 35.0 - 46.0 % | [facility] | | | POC | | | LABORATORY | | + + + + + + | Hemoglobin, | 10.9 (L)Comment: Testing | 11.6 - 15.5 | [facility] | | | POC | performed at [facility];[address] | g/dL | LABORATORY | | | | [address];[place], [place] | | | | | | [address] | | | | + + + + + + + + | Specimen | + + | | + + + + + + + | Performing | Address | City/State/Zipcode | Phone Number | | Organization | | | | + + + + + | [facility] | [address] | [place] [address] | [phone] | + + + + + Culture, Wound, Smear, w/Anaerobe (09/03/2019 4:27 PM PDT) + + + + + + | Component | Value | Ref Range | Performed | Pathologist | | | | | At | Signature | + + + + + + | Special | LT ARM GRAFT SITE | | [facility] | | | Requests | | | LABORATORY | | + + + + + + | Special | Testing performed at | | [facility] | | | Requests | [facility];[address] | | LABORATORY | | | | [address];[place] [address] | | | | + + + + + + | Gram Stain | WBC'S SEEN | | [facility] | | | Result | | | LABORATORY | | + + + + + + | Gram Stain | GRAM POSITIVE COCCI | | [facility] | | | Result | | | LABORATORY | | + + + + + + | Gram Stain | STAIN PERFORMED ON | | [facility] | | | Result | CYTOSPIN | | LABORATORY | | + + + + + + | Gram Stain | Testing performed at | | [facility] | | | Result | [facility];[address] | | LABORATORY | | | | [address];[place] [address] | | | | + + + + + + | RESULT | 2+ENTEROCOCCUS | | [facility] | | | | FAECALISAminoglycosides | | LABORATORY | | | | (except for high-level | | | | | | resistance testing), | | | | | | cephalosporins, | | | | | | clindamycin, and | | | | | | trimethoprim-sulfamethox | | | | | | azole may appear active | | | | | | in vitro but they are | | | | | | not effective | | | | | | clinically. (A) | | | | + + + + + + + + | Specimen | + + | Tissue - Left upper | | arm structure (body | | structure) | + + + + +--------+ + | Organism | Antibiotic | Method | Susceptibility | + + +--------+ + | Enterococcus | Ampicillin | CORINNE | SUSCEPTIBLE: | | faecalis | | | Sensitive | + + +--------+ + | Enterococcus | Penicillin G | CORINNE | SUSCEPTIBLE: | | faecalis | | | Sensitive | + + +--------+ + | Enterococcus | Levofloxacin | CORINNE | SUSCEPTIBLE: | | faecalis | | | Sensitive | + + +--------+ + | Enterococcus | Vancomycin | CORINNE | SUSCEPTIBLE: | | faecalis | | | Sensitive | + + +--------+ + +---+ + | | Comment: Testing | | | performed at [facility], | | | [address], | | | [place] [address] | +---+ + + + + + + | Performing | Address | City/State/Zipcode | Phone Number | | Organization | | | | + + + + + | [facility] | [address] | [place] [address] | [phone] | + + + + + , Serum, Qual (09/03/2019 3:11 PM PDT) + + + + + + | Component | Value | Ref Range | Performed | Pathologist | | | | | At | Signature | + + + + + + | Preg, Serum | NEGATIVEComment: Testing | NEG | [facility] | | | | performed at [facility];[address] | | LABORATORY | | | | [address];[place] | | | | | | [address] | | | | + + + + + + + + | Specimen | + + | Blood | + + + + + + + | Performing | Address | City/State/Zipcode | Phone Number | | Organization | | | | + + + + + | [facility] | [address] | [place] [address] | [phone] | + + + + + ECG 12 lead (09/03/2019 1:56 PM PDT) + + + + + + | Component | Value | Ref Range | Performed | Pathologist | | | | | At | Signature | + + + + + + | VENTRICULAR | 75 | BPM | [facility] | | | RATE EKG | | | | | + + + + + + | ATRIAL RATE | 75 | BPM | [facility] | | + + + + + + | P-R | 144 | ms | [facility] | | | INTERVAL | | | | | + + + + + + | QRS | 76 | ms | [facility] | | | DURATION | | | | | + + + + + + | Q-T | 386 | ms | [facility] | | | INTERVAL | | | | | + + + + + + | Q-T | 431 | ms | [facility] | | | INTERVAL | | | | | | (CORRECTED) | | | | | + + + + + + | P WAVE AXIS | 5 | degrees | [facility] | | + + + + + + | QRS AXIS | 75 | degrees | [facility] | | + + + + + + | T AXIS | 67 | degrees | [facility] | | + + + + + + | INTERPRETAT | Normal sinus rhythmLow | | [facility] | | | ION TEXT | voltage QRSBorderline | | | | | | ECGWhen compared with | | | | | | ECG of 10-AUG-2019 | | | | | | 15:16,No significant | | | | | | change was foundThis ECG | | | | | | contains Unconfirmed | | | | | | Interpretation | | | | | | Statements. See ED | | | | | | Record for Physician | | | | | | Interpretation. | | | | | | Confirmed by MUSE READ | | | | | | ONLY, -COMPUTER ([id number]), | | | | | | loan expeditor Jimi King | | | | | | ([id number]) on 09/04/2019 | | | | | | 3:51:10 PM | | | | + + [...] | | + +---------+ + + Magnesium (09/03/2019 1:32 PM PDT) + + + + + + | Component | Value | Ref Range | Performed | Pathologist | | | | | At | Signature | + + + + + + | Magnesium | 3.2 (H)Comment: Testing | 1.7 - 2.4 mg/dL | [facility] | | | | performed at [facility];[address] | | LABORATORY | | | | [address];[place] | | | | | | [address] | | | | + + + + + + + + | Specimen | + + | Blood | + + + + + + + | Performing | Address | City/State/Zipcode | Phone Number | | Organization | | | | + + + + + | [facility] | [address] | [place] [address] | [phone] | + + + + + Comprehensive Metabolic Panel (09/03/2019 1:32 PM PDT) + + + + + [...] + + + | Anion Gap | 15 | 5 - 20 mmol/L | [facility] | | | | | | LABORATORY | | + + + + + + | Glucose | 97 | 65 - 99 mg/dL | [facility] | | | | | | LABORATORY | | + + + + + + | BUN | 31 (H) | 8 - 25 mg/dL | [facility] | | | | | | LABORATORY | | + + + + + + | Creatinine | 9.05 (H) | 0.50 - 1.00 | [facility] | | | | | mg/dL | LABORATORY | | + + + + + + | BUN/Creatin | 3 | | [facility] | | | ine Ratio | | | LABORATORY | | + + + + + + | Calcium | 9.1 | 8.5 - 10.5 | [facility] | | | | | mg/dL | LABORATORY | | + + + + + + | Protein, | 6.7 | 6.3 - 8.2 g/dL | [facility] | | | Total | | | LABORATORY | | + + + + + + | Albumin | 4.0 | 3.6 - 5.0 g/dL | [facility] | | | | | | LABORATORY | | + + + + + + | Globulin | 2.7 | 1.3 - 4.9 g/dL | [facility] | | | | | | LABORATORY | | + + + + + + | A/G Ratio | 1.5 | 1.0 - 2.4 | [facility] | | | | | | LABORATORY | | + + + + + + | BILIRUBIN, | 0.2 | 0.1 - 1.5 mg/dL | [facility] | | | TOTAL | | | LABORATORY | | + + + + + + | ALK PHOS | 73 | 35 - 115 U/L | [facility] | | | | | | LABORATORY | | + + + + + + | AST | 12 | 10 - 45 U/L | [facility] | | | | | | LABORATORY | | + + + + + + | ALT | <7 (L) | 10 - 65 U/L | [facility] | | | | | | LABORATORY | | + + + + + + | Estimated | 5 (L)Comment: GFR <60: | >60 | [facility] [...] | | | | | performed at [facility];[address] | | | | | | [address];[place], [place] | | | | | | [address] | | | | + + + + + + + + | Specimen | + + | Blood | + + + + + + + | Performing | Address | City/State/Zipcode | Phone Number | | Organization | | | | + + + + + | [facility] | [address] [facility] | [place] [address] | [phone] | + + + + + CBC with Differential (09/03/2019 1:32 PM PDT) + + + + + + | Component | Value | Ref Range | Performed | Pathologist | | | | | At | Signature | + + + + + + | WBC | 13.78 (H) | 3.80 - 11.00 | [facility] | | | | | K/uL | LABORATORY | | + + + + + + | RBC | 3.97 | 3.70 - 5.10 | [facility] | | | | | M/uL | LABORATORY | | + + + + + + | Hemoglobin | 11.2 (L) | 11.3 - 15.5 | [facility] | | | | | g/dL | LABORATORY | | + + + + + + | Hematocrit | 34.8 | 34.0 - 46.0 % | [facility] | | | | | | LABORATORY | | + + + + + + | MCV | 87.8 | 80.0 - 100.0 fl | [facility] | | | | | | LABORATORY | | + + + + + + | MCH | 28.3 | 27.0 - 34.0 pg | [facility] | | | | | | LABORATORY | | + + + + + + | MCHC | 32.2 | 32.0 - 35.5 | [facility] | | | | | g/dL | LABORATORY | | + + + + + + | RDW-SD | 46.8 | 37 - 53 fl | [facility] | | | | | | LABORATORY | | + + + + + + | Platelet | 270 | 150 - 400 K/uL | [facility] [...] + + + + | % | 87.33 | % | [facility] | | | Neutrophils | | | LABORATORY | | + + + + + + | % | 6.87 | % | [facility] | | | Lymphocytes | | | LABORATORY | | + + + + + + | Monocyte % | 4.06 | % | [facility] | | | | | | LABORATORY | | + + + + + + | Eosinophils | 1.27 | % | [facility] | | | % | | | LABORATORY | | + + + + + + | Basophils % | 0.47 | % | [facility] | | | | | | LABORATORY | | + + + + + + | Neutrophils | 12.04 (H) | 1.90 - 7.40 | [facility] | | | , Absolute | | K/uL | LABORATORY | | + + + + + + | Absolute | 0.95 (L) | 1.00 - 3.90 | [facility] | | | Lymphocytes | | K/uL | LABORATORY | | + + + + + + | Absolute | 0.56 | 0.00 - 0.80 | [facility] | | | Monocytes | | K/uL | LABORATORY | | + + + + + + | Eosinophils | 0.17 | 0.00 - 0.50 | [facility] | | | , Absolute | | K/uL | LABORATORY | | + + + + + + | Basophils, | 0.07 | 0.00 - 0.10 | [facility] | [...] | | | | | performed at [facility] [place] | | | | | | [facility];[place], [place] | | | | | | [id number] | | | | + + + + + + + + | Specimen | + + | Blood | + + + + + + + | Performing | Address | City/State/Zipcode | Phone Number | | Organization | | | | + + + + + | [facility] | [address] | [place] [address] | [phone] | + + + + + documented in this encounter Visit Diagnoses + + | Diagnosis | + + | Infected prosthetic vascular graft, initial encounter (HCC) | + + documented in this encounter Admitting Diagnoses + + | Diagnosis | + + | Infected prosthetic vascular graft, initial encounter (HCC) | + + documented in this encounter Administered Medications + +--------+ +---------+------+------+ | Medication Order | MAR | Action | Dose | Rate | Site | | | Action | Date | | | | + +--------+ +---------+------+------+ | bacitracin 50,000 units/10 mL | Given | 09/03/20 | 640 mLs | | | | 50,000 Units in sodium chloride | | 19 4:31 | | | | | for irrigation 0.9% 3,000 mL | | PM PDT | | | | | irrigation PRN, Starting Fri | | | | | | | 09/03/19 at 1631, Intra-op | | | | | | + +--------+ +---------+------+------+ +---+---+ | | | +---+---+ + +-------+ + +---+---+ | calcium carbonate (TUMS) | Given | 09/04/20 | 1,000 mg | | | | chewable tablet 1,000 mg 1,000 | | 19 4:54 | | | | | mg, Oral, EVERY 4 HOURS PRN, | | AM PDT | | | | | Indigestion, Starting Fri | | | | | | | 09/03/19 at 1957 | | | | | | + +-------+ + +---+---+ +---+---+ | | | +---+---+ + +-------+ +-------+---+---+ | diphenhydrAMINE (BENADRYL) | Given | 09/06/20 | 25 mg | | | | capsule 25 mg 25 mg, Oral, EVERY | | 19 5:08 | | | | | 4 HOURS PRN, Itching, Starting | | PM PDT | | | | | 09/05/19 at 1836 | | | | | | + +-------+ +-------+---+---+ +-------+ +-------+---+---+ | Given | 09/05/20 | 25 mg | | | | | 19 7:03 | | | | | | PM PDT | | | | +-------+ +-------+---+---+ +---+---+ | | | +---+---+ + +-------+ +---------+---+---+ | epoetin chito-epbx (RETACRIT) | Given | 09/08/20 | 10,000 | | | | 10,000 units/mL injection 10,000 | | 19 9:15 | Units | | | | Units 10,000 Units, Intravenous, | | AM PDT | | | | | WITH EACH DIALYSIS, Starting Wed | | | | | | | 09/08/19 at 0637, Keep in | | | | | | | refrigerator. Do not shake., | | | | | | | ESRD-related (i.e. dialysis) | | | | | | | indication? Yes, Dialysis | | | | | | + +-------+ +---------+---+---+ +---+---+ | | | +---+---+ + +-------+ +--------+---+---+ | heparin 1,000 units/mL | Given | 09/03/20 | 3,400 | | | | injection 1,500-6,000 Units | | 19 11:42 | Units | | | | 1,500-6,000 Units, Intracatheter, | | PM PDT | | | | | AFTER EACH DIALYSIS, Starting | | | | | | | 09/03/19 at 1902, Instill in | | | | | | | catheter, after each dialysis. | | | | | | | Dispense quantity sufficient to | | | | | | | fill both lumens of catheter., | | | | | | | Treatment date(s): 09/03/2019, | | | | | | | Dialysis | | | | | | + +-------+ +--------+---+---+ +---+---+ | | | +---+---+ + +-------+ +--------+---+---+ | heparin 1,000 units/mL | Given | 09/08/20 | 3,400 | | | | injection 1,500-6,000 Units | | 19 10:23 | Units | | | | 1,500-6,000 Units, Intracatheter, | | AM PDT | | | | | AFTER EACH DIALYSIS, Starting | | | | | | | 09/08/19 at 0636, Instill in | | | | | | | catheter, after each dialysis. | | | | | | | Dispense quantity sufficient to | | | | | | | fill both lumens of catheter., | | | | | | | Treatment date(s): 09/08/2019, | | | | | | | Dialysis | | | | | | + +-------+ +--------+---+---+ +---+---+ | | | +---+---+ + +-------+ +--------+---+ + | heparin 5,000 units/mL | Given | 09/08/20 | 5,000 | | Arm-Righ | | injection 5,000 Units 5,000 | | 19 12:45 | Units | | t Upper | | Units, Subcutaneous, EVERY 12 | | PM PDT | | | | | HOURS (2 times per day), First | | | | | | | dose on Fri09/03/19 at 2100 | | | | | | + +-------+ +--------+---+ + +-------+ +--------+---+ + | Given | 09/07/20 | 5,000 | | Abdomen- | | | 19 9:34 | Units | | LLQ | | | PM PDT | | | | +-------+ +--------+---+ + | Given | 09/06/20 | 5,000 | | Abdomen- | | | 19 9:02 | Units | | RLQ | | | PM PDT | | | | +-------+ +--------+---+ + +---+---+ | | | +---+---+ + +-------+ +--------+---+---+ | HYDROmorphone (DILAUDID) | Given | 09/06/20 | 0.4 mg | | | | injection 0.2-0.4 mg 0.2-0.4 mg, | | 19 11:12 | | | | | Intravenous, EVERY 1 HOUR PRN, | | AM PDT | | | | | Pain, Starting Fri09/03/19 at | | | | | | | 1957, If oral route not an | | | | | | | option. Slow IV push, not faster | | | | | | | than 0.3mg/minute. First dose | | | | | | | must be lowest dose, titrate to | | | | | | | effective dose by repeat of | | | | | | | lowest dose every 30 minutes prn | | | | | | | pain, may not exceed maximum dose | | | | | | | ordered per interval. Use | | | | | | | Pasero Sedation Scale., | | | | | | | Post-op/Phase II | | | | | | + +-------+ +--------+---+---+ +-------+ +--------+---+---+ | Given | 09/03/20 | 0.2 mg | | | | | 19 10:19 | | | | | | PM PDT | | | | +-------+ +--------+---+---+ + +---+ | | | + +---+ | lidocaine (XYLOCAINE) 4% | | | topical solution 25 mL 25 mL, | | | Topical, PRN, Pain, Dressing | | | Change Friday -Friday - | | | Friday, Starting 09/04/19 at | | | 0904 | | + +---+ | | | + +---+ + +-------+ +------+---+---+ | ondansetron (ZOFRAN) injection | Given | 09/08/20 | 4 mg | | | | 4 mg 4 mg, Intravenous, EVERY 6 | | 19 4:29 | | | | | HOURS PRN, Nausea, Vomiting, | | AM PDT | | | | | Starting 09/03/19 at 1957, | | | | | | | First line agent, | | | | | | + +-------+ +------+---+---+ +-------+ +------+---+---+ | Given | 09/07/20 | 4 mg | | | | | 19 9:39 | | | | | | PM PDT | | | | +-------+ +------+---+---+ | Given | 09/07/20 | 4 mg | | | | | 19 3:24 | | | | | | PM PDT | | | | +-------+ +------+---+---+ +---+---+ | | | +---+---+ + +-------+ +-------+---+---+ | oxyCODONE (ROXICODONE) tablet | Given | 09/07/20 | 10 mg | | | | 2.5-10 mg 2.5-10 mg, Oral, EVERY | | 19 9:39 | | | | | 3 HOURS PRN, Pain, Starting Fri | | PM PDT | | | | | 09/03/19 at 1957, First dose must | | | | | | | be the lowest dose, can titrate | | | | | | | to effective dose by repeat of | | | | | | | lowest dose every 60 minutes prn | | | | | | | pain, may not exceed maximum dose | | | | | | | ordered per interval. Use Pasero | | | | | | | Sedation Scale., Post-op/Phase | | | | | | | II | | | | | | + +-------+ +-------+---+---+ +-------+ +-------+---+---+ | Given | 09/07/20 | 10 mg | | | | | 19 3:24 | | | | | | PM PDT | | | | +-------+ +-------+---+---+ | Given | 09/07/20 | 10 mg | | | | | 19 5:30 | | | | | | AM PDT | | | | +-------+ +-------+---+---+ +---+---+ | | | +---+---+ + +-------+ +-------+---+---+ | pantoprazole (PROTONIX) DR | Given | 09/08/20 | 40 mg | | | | tablet 40 mg 40 mg, Oral, DAILY | | 19 5:55 | | | | | BEFORE BREAKFAST, First dose on | | AM PDT | | | | | 09/04/19 at 0630, Formulary | | | | | | | substitution for Omeprazole., | | | | | | | Indication: GERD | | | | | | + +-------+ +-------+---+---+ +-------+ +-------+---+---+ | Given | 09/07/20 | 40 mg | | | | | 19 5:34 | | | | | | AM PDT | | | | +-------+ +-------+---+---+ | Given | 09/06/20 | 40 mg | | | | | 19 6:51 | | | | | | AM PDT | | | | +-------+ +-------+---+---+ +---+---+ | | | +---+---+ + +-------+ +---------+---+---+ | promethazine (PHENERGAN) (IV | Given | 09/08/20 | 6.25 mg | | | | ONLY) injection 6.25 mg 6.25 mg, | | 19 8:16 | | | | | Intravenous, EVERY 6 HOURS PRN, | | AM PDT | | | | | Nausea, Vomiting, Starting Tue | | | | | | | 09/07/19 at 0847, Vesicant. When | | | | | [...] | sevelamer carbonate (RENVELA) | Given | 09/08/20 | 1,600 mg | | | | tablet 1,600 mg 1,600 mg, Oral, | | 19 12:44 | | | | | 2 TIMES DAILY WITH BREAKFAST & | | PM PDT | | | | | LUNCH, First dose (after last | | | | | | | reorder) on 09/04/19 at 0800, | | | | | | | Do not cut or crush tablets. | | | | | | | Hold if not eating., | | | | | | + +-------+ + +---+---+ +-------+ + +---+---+ | Given | 09/07/20 | 1,600 mg | | | | | 19 7:37 | | | | | | PM PDT | | | | +-------+ + +---+---+ | Given | 09/06/20 | 1,600 mg | | | | | 19 8:50 | | | | | | AM PDT | | | | +-------+ + +---+---+ +---+---+ | | | +---+---+ + +-------+ + +---+---+ | sevelamer carbonate (RENVELA) | Given | 09/06/20 | 2,400 mg | | | | tablet 2,400 mg 2,400 mg, Oral, | | 19 6:48 | | | | | DAILY WITH DINNER, First dose on | | PM PDT | | | | | 09/03/19 at 2145, Do not cut | | | | | | | or crush tablets. Hold if not | | | | | | | eating., | | | | | | + +-------+ + +---+---+ +-------+ + +---+---+ | Given | 09/05/20 | 2,400 mg | | | | | 19 6:34 | | | | | | PM PDT | | | | +-------+ + +---+---+ | Given | 09/03/20 | 2,400 mg | | | | | 19 9:39 | | | | | | PM PDT | | | | +-------+ + +---+---+ +---+---+ | | | +---+---+ + +-------+ +---------+---+---+ | sodium chloride 0.9% (NS) 500 | Given | 09/03/20 | 501 mLs | | | | mL with heparin 5,000 units/mL | | 19 4:33 | | | | | 5,000 Units optesia mixture PRN, | | PM PDT | | | | | Starting Fri09/03/19 at 1633, | | | | | | | Intra-op | | | | | | + +-------+ +---------+---+---+ +---+---+ | | | +---+---+ + +-------+ +--------+---+ + | thrombin (recombinant) | Given | 09/03/20 | 5,000 | | Surgical | | (RECOTHROM) solution PRN, | | 19 4:31 | Units | | Site | | Starting Fri09/03/19 at 1631, | | PM PDT | | | | | Intra-op | | | | | | + +-------+ +--------+---+ + + +---+ | | | + +---+ | vancomycin in saline IVPB 1,000 | | | mg 1,000 mg, Intravenous, | | | Administer over 60 Minutes, SEE | | | ADMIN INSTRUCTIONS, Starting Sat | | | 09/04/19 at 0045, Administer dose | | | during last hour or immediately | | | following each hemodialysis | | | session. Use Rx button to message | | | pharmacy for dose. Keep in | | | refrigerator., Indications: | | | PURULENT SKIN AND SOFT TISSUE | | | INFECTION, infected AV fistula | | + +---+ | | | + +---+ | vancomycin per pharmacy | | | PHARMACY CONSULT, Starting Fri | | | 09/03/19 at 1533, Indications: | | | Post-Operative Wound Infection | | + +---+ | | | + +---+ documented in this encounter
--- OUTSIDE RECORDS SUMMARY | ~2020-05-11 | XMS | Encounter Summary ---
Demographics + + + | Address | [address] | | | [place] [address] | + + + | Home Phone | | + + + | Preferred Language | Unknown | + + + | Marital Status | | + + + | Church Affiliation | Unknown | + + + | Race | Unknown | + + + | Ethnic Group | Unknown | + + + Author + + + | Author | [facility] | | | and [place] | + + + | Organization | [facility] | | | and [place] | + + + | Address | Unknown | + + + | Phone | Unavailable | + + + Support + + + + + | Name | Relationship | Address | Phone | + + + + + | Lyubov Smalls | ECON | [place], [place] | | | | | [address] | | + + + + + | Lyida Palm | ECON | [place], [place] | | | | | [address] | | + + + + + | melinda METZ" | ECON | [place], [place] | | | reba | | [phone] | | + + + + + | Jose C Oconnor | ECON | [place] | | | | | [place] | | | | | [address] | | + + + + + Care Team Providers + +------+ + | Care Hollow Ware Maker Name | Role | Phone | + +------+ + | Juan F Whitley DO | PCP | | + +------+ + Encounter Details +--------+ + + + + | Date | Type | Department | Care Team | Description | +--------+ + + + + | 03/31/ | Emergency | [facility] | Ronald Hollins, | No problem, feared | | 2018 | | [facility] | [facility] [address] | complaint unfounded; | | | | EMERGENCY CENTER | [place] [address] | Encounter for | | | | [address] | [phone] | postoperative wound | | | | [place], [place] | | check | | | | [address] | | | | | | [phone] | | | +--------+ + + + [...] + + + | Blood Pressure | 149/88 | 03/31/2019 7:33 PM | | | | | PDT | | + + + + + | Pulse | 82 | 03/31/2019 7:33 PM | | | | | PDT | | + + + + + | Temperature | 36.2 C (97.2 F) | 03/31/2019 7:33 PM | | | | | PDT | | + + + + + | Respiratory Rate | 16 | 03/31/2019 7:33 PM | | | | | PDT | | + + + + + | Oxygen Saturation | - | - | | + + + + + | Inhaled Oxygen | - | - | | | Concentration | | | | + + + + + | Weight | 81.7 kg (180 lb 1.9 | 03/31/2019 7:33 PM | | | | oz) | PDT | | + + + + + | Height | - | - | | + + + + + | Body Mass Index | 32.94 | 03/11/2019 7:57 PM | | | | | PDT [...] + + documented as of this encounter ED Notes Ronald Hollins PA-C - 03/31/2019 7:58 PM PDTFormatting of this note might be different f rom the original. ED Provider Notes by Ronald Hollins PA-C at 03/31/191957 Author: Ronald Hollins PA-C Service: -Emergency Author Type: Physician Leadlighter Filed: 03/31/192008 Date of Service: 03/31/191957 Status: Attested Cook Mess: Ronald Hollins PA-C (Physician Leadlighter) Cosigner: Dario Gates MD at 2046 Attestation signed by Dario Gates MD at 04/10/192046 I was physically available for real-time consultation with the advanced assessment clinician, as supervising physician. Dario Gates M.D., M.P.H. Procedures [facility] Department of Emergency Medicine History of Present Illness Patient Identification Ramona Oconnor is a 39 y.o. female. Patient information was obtained from patient. History/Exam limitations: none. Patient presented to the Emergency Department by: Car Chief Complaint Chief Complaint Patient presents with Vascular Access Problem "the vibration in my fistula is going off then back on again", L upper arm, pt denies tatiana n or bleeding Patient is a 39 y.o. female who presents with request for evaluation of left arm dialysis shunt. It was placed 2 weeks ago and it was a process of maturing. Patient dialyzed earlie r today through her access port. She was on route to [place] for an overnight trip when hardeep ny discovered she could no longer feel the thrill in her shunt. They came to the ED. Bette tly she does have a thrill. No fever, no chills. 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 PCP: JUAN F WHITLEY Past Medical History Diagnosis Date Diverticulitis 01/05/2019 [...] 10/25/15 showed normal sized kidneys. 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 GERD (gastroesophageal reflux disease) Hypercalcemia 09/07/2017 Hyperphosphatemia 10/28/2015 Hypocalcemia 10/28/2015 Hypokalemia 06/04/2017 Itching 10/28/2015 Metabolic acidosis 10/28/2015 Obesity Other chronic pain Peritonitis associated with peritoneal dialysis (HCC) 01/24/2017 Peritonitis due to infected peritoneal dialysis catheter (HCC) 12/08/2018 Secondary hyperparathyroidism (HCC) Uremia 10/28/2015 Past Surgical History Procedure Laterality Date AV FISTULA PLACEMENT Left 03/11/2019 Procedure: AV FISTULA; Surgeon: Qasim Pederson MD; Location: [facility]; Service: Vascu lar; Laterality: Left; CATHETER REMOVAL N/A 02/04/2019 Procedure: DIALYSIS CATHETER - REMOVAL; Surgeon: Qasim Pederson MD; Location: [facility] ; Service: Vascular; Laterality: N/A; Infected PD catheter removal ESOPHAGOGASTRODUODENOSCOPY N/A 09/10/2017 Procedure: ESOPHAGOGASTRODUODENOSCOPY; Surgeon: Beena Peters MD; Location: [facility]; Service: Gastroenterology; Laterality: N/A; PERITONEAL CATHETER INSERTION N/A 10/28/2015 Procedure: LAPAROSCOPIC - PERITONEAL DIALYSIS CATH INSERTION; Surgeon: Mundo Ramos MD; Lo cation: [facility]; Service: Vascular; Laterality: N/A; WISDOM TOOTH EXTRACTION Prior to Admission medications Medication Sig Start Date End Date Taking? Authorizing Provider LORazepam (ATIVAN) 1 MG tablet Take 1 mg by mouth every 8 (eight) hours as needed for Anxie ty. Historical Provider omeprazole (PRILOSEC) 20 MG capsule Take 20 mg by mouth every morning before breakfast. Historical Provider oxyCODONE-acetaminophen (PERCOCET) 5-325 MG per tablet Take 1 tablet by mouth every 4 (four ) hours as needed. Patient not taking: Reported on 03/30/2019 03/11/19 Man Jeronimo PA-C promethazine (PHENERGAN) 25 MG tablet Take 25 mg by mouth every 6 (six) hours as needed for Nausea. Historical Provider sevelamer (RENVELA) 800 MG tablet Take 2 tablets by mouth 3 (three) times daily with meals. 02/15/19 02/15/20 Ginger Bass MD traZODone (DESYREL) 100 MG tablet Take 100 mg by mouth nightly. Historical Provider No Known Allergies Social History Social History Marital status: Spouse name: N/A Number of children: 0 Years of education: N/A Occupational History Not on file. Social History Main Topics Smoking status: Former Smoker Packs/day: 0.25 Quit date: 10/10/2015 Smokeless tobacco: Never Used Alcohol use No Comment: occ Drug use: Yes Types: Marijuana Comment: oil CBD Sexual activity: Yes Partners: Male control/ protection: None Comment: Other Topics Concern Not on file Social History Narrative She lives at home and is a former smoker. Family History Problem Relation Age of Onset Other (see comments) Mother healthy Diabetes Father Breast cancer Maternal Grandmother ROS Review of Systems Review of Systems Constitutional: Negative for chills and fever. HENT: Negative for sore throat. Respiratory: Negative for shortness of breath. Cardiovascular: Negative for chest pain. Gastrointestinal: Negative for abdominal pain, constipation, diarrhea, nausea and vomiting. Genitourinary: Negative for dysuria. Musculoskeletal: Negative for myalgias. Skin: Negative for rash. All other systems reviewed and are negative. Vascular: Apparent temporary absence of thrill of dialysis shunt Physical Exam BP 149/88 (BP Location: Right upper arm) | Pulse 82 | Temp 97.2 F (36.2 C) (Temporal) | Resp 16 | Wt 81.7 kg (180 lb 1.9 oz) | SpO2 98% | BMI 32.94 kg/m Pulse Oximetry interpretation: Normal General: Alert, in no apparent distress Eyes: Normal inspection, pupils equal and round, non-icteric ENT: Mucosa moist, ears and nose grossly normal Neck: Normal inspection Cardiovascular: Rate and rhythm normal No RMG Respiratory: Breath sounds normal bilaterally, no rhonchi, wheezes, rales or rubs. Abdomen: Deferred Skin: Color normal, warm and dry Neuro: No apparent motor or sensory deficit. Extremities: CSM present and normal x 4 Vascular: The patient has a strong thrill and audible bruit at the site of her dialysis aneudy nt, left AC. No erythema, streaking, swelling or warmth. Medical Decision Making and Emergency Department Course ED Department Course Impression: Concern for possible a loss of thrill. The patient currently does have a thril l and it appears to be functioning normally. Differential would include but is not limited to: Occlusion, infection, other. Normal exam. Patient states she has a follow-up appointment with Dr. Pederson's office on Friday (2 days). Angela lynch will keep that appointment. She will return to the ED if thrill no longer present. Disposition: Given the examination findings, labs/studies (as applicable) and history, do n ot feel there is any indication for further emergent testing or hospitalization at this time . Patient is appropriate for discharge. Patient instructed to follow up with VASCULAR for re evaluation; further instructed to return to the ED for re-evaluation if symptoms worsen or n ew symptoms occur. Patient verbalizes understanding of and agreement with plan. Note: This document was created using speech recognition software. It has been reviewed for content, but some "sound-alike" errors may still exist. Please contact the author directly for clarification if needed. Vitals: 03/31/19 1932 BP: 149/88 BP Location: Right upper arm Pulse: 82 Resp: 16 Temp: 97.2 F (36.2 C) TempSrc: Temporal SpO2: 98% Weight: 81.7 kg (180 lb 1.9 oz) Medications - No data to display Records Reviewed Old medical records. Labs & Radiology Results Laboratory Evaluation Results None I personally reviewed the lab results and radiographic findings, if any, and they have been posted to the chart. Pertinent positive and negative findings have been addressed appropria tely. Radiology and EKG Evaluation Imaging Results None Diagnosis & Disposition ED Diagnoses Final diagnoses No problem, feared complaint unfounded Encounter for postoperative wound check dialysis fistula Disposition: ED Disposition ED Disposition Condition Comment Discharge Good Follow-up Information Follow up With Specialties Details Why Contact Info Qasim Pederson MD Vascular Surgery Schedule an appointment as soon as possible for a visit o n 04/02/2019 keep your appointment as scheduled [address] [facility] [address] [facility] Emergency Department Emergency Medicine Go to as needed, i f symptoms worsen/new symptoms develop [address] [facility] [address] Discharge Medications: New Prescriptions No new medications Ronald Hollins PA-C 03/31/192008 Dario Gates MD 04/10/192046 onversion Transac tion, Provider Unknown - 03/31/2019 7:52 PM PDTFormatting of this note might be different f rom the original. ED Notes by Sherri Thomas RN at 03/31/191951 Author: Sherri Thomas RN Service: (none) Author Type: Registered Nurse Filed: 03/31/191953 Date of Service: 03/31/191951 Status: Signed Cook Mess: Sherri Thomas RN (Registered Nurse) Pt c/o fistula pulse felt on and off since today at 1100. Pt states Dr Pederson saw it yesterday and states it is working well and she had it accessed for dialysis today with no problems, but states when she was travelling she was unable to feel a pulse momentarily and states "it is weak now, but it comes and goes". Pulse felt in fistula right now. Fistula placed [address] Pederson. Sherri Thomas RN 03/31/191953 onver patric Transaction, Provider Unknown - 03/31/2019 7:38 PM PDT ED Notes by Samira Matthews RN at 03/31/191937 Author: Samira Matthews RN Service: (none) Author Type: Registered Nurse Filed: 03/31/191937 Date of Service: 03/31/191937 Status: Signed Cook Mess: Samira Matthews RN (Registered Nurse) Bed: 3 Expected date: Expected time: Means of arrival: Comments: Ready Samira Matthews RN 03/31/198 Max roper in this encounter Plan of Treatment Not on filedocumented as of this encounter Visit Diagnoses + + | Diagnosis | + + | No problem, feared complaint unfounded Person with feared complaint in whom no | | diagnosis was made | + + | Encounter for postoperative wound check Other specified aftercare following surgery | + + documented in this encounter
--- OUTSIDE RECORDS SUMMARY | ~2020-05-11 | XMS | Encounter Summary ---
Demographics + + + | Address | [address] | | | [place] [address] | + + + | Home Phone | | + + + | Preferred Language | Unknown | + + + | Marital Status | | + + + | Jain Affiliation | Unknown | + + + | Race | Unknown | + + + | Ethnic Group | Unknown | + + + Author + + + | Author | [facility] | | | and [place] | + + + | Organization | [facility] | | | and [place] | + + + | Address | Unknown | + + + | Phone | Unavailable | + + + Support + + + + + | Name | Relationship | Address | Phone | + + + + + | Lyubov Smalls | ECON | [place], [place] | | | | | [address] | | + + + + + | Lydia Palm | ECON | [place], [place] | | | | | [address] | | + + + + + | melinda METZ" | ECON | [place], [place] | | | [place] | | [phone] | | + + + + + | Jose C Oconnor | ECON | [place] | | | | | [place] | | | | | [address] | | + + + + + Care Team Providers + +------+ + | Care Feeder Catcher Tobacco Name | Role | Phone | + +------+ + | No, Physician | PCP | Unavailable | + +------+ + Reason for Visit + +--------+ + | Reason | Onset | Comments | | | Date | | + +--------+ + | Surgery Appointment | 11/23/ | | | | 2020 | | + +--------+ + Encounter Details +--------+ + + + + | Date | Type | Department | Care Team | Description | +--------+ + + + + | 11/23/ | Telephone | [facility] | Nidhi Whitaker, | Surgery Appointment | | 2019 | | VASCULAR SURGERY | RN | | | | | [address] | | | | | | [place], [place] | | | | | | [address] | | | | | | [phone] | | | +--------+ + + + [...] Telephone Encounter - Nidhi Whitaker RN - 11/23/2019 5:21 PM PSTPatient scheduled for surgery with Dr Pederson on 12/16/2019. documented in this encounter Plan of Treatment Not on filedocumented as of this encounter Visit Diagnoses Not on filedocumented in this encounter
--- OUTSIDE RECORDS SUMMARY | ~2020-05-11 | XMS | Encounter Summary ---
Demographics + + + | Address | [address] | | | [place] [address] | + + + | Home Phone | | + + + | Preferred Language | Unknown | + + + | Marital Status | | + + + | Amish Affiliation | Unknown | + + + | Race | Unknown | + + + | Ethnic Group | Unknown | + + + Author + + + | Author | [facility] | | | and [place] | + + + | Organization | [facility] | | | and [place] | + + + | Address | Unknown | + + + | Phone | Unavailable | + + + Support + + + + + | Name | Relationship | Address | Phone | + + + + + | Lyubov Smalls | ECON | [place], [place] | | | | | [address] | | + + + + + | Lydia Palm | ECON | [place], [place] | | | | | [address] | | + + + + + | melinda METZ" | ECON | [place], [place] | | | reba | | [address] | | + + + + + | Jose C Oconnor | ECON | [place] | | | | | [place] | | | | | [address] | | + + + + + Care Team Providers + +------+ + | Care Finance Controller Name | Role | Phone | + [...] | | | | | | | [place] | | | | | | | [...] Description | +--------+---------+ + + + | 12/16/ | Surgery | [facility] | PoiQasim MD | INSERTION AV FISTULA | | 2019 | | [facility] | [address] | or GRAFT CREATION | | | | OPERATING ROOM [address] | [place], [place] | | | | | [address] | [address] | | | | | [place], [place] | | | | | | [address] | | | | | | [phone] | | | +--------+---------+ + + + [...] + + + | Blood Pressure | 110/57 | 12/16/2019 11:02 AM | | | | | PST | | + + + + + | Pulse | 68 | 12/16/2019 11:02 AM | | | | | PST | | + + + + + | Temperature | 36.4 C (97.5 F) | 12/16/2019 11:02 AM | | | | | PST | | + + + + + | Respiratory Rate | 16 | 12/16/2019 11:02 AM | | | | | PST | | + + + + + | Oxygen Saturation | 98% | 12/16/2019 11:02 AM | | | [...] cuts, scrapes, or blows. Date Last Reviewed: 11/10/[id number] [employer]. [address] [place] [address], [place] [address]. All apex [facility] center[facility] ts reserved. This information is not intended [...] service will answer evenings and weekends) 2. [facility] Anesthesia 24-hour toll-free call line: [phone] (follow instructions careful ly if forwarded to [...] as of this encounter Progress Notes Ibeth Sanchez RN - 12/16/2019 4:58 PM PSTWhat to [...] and other family member. Escorted out via w/c. Haresh Sanchez RNElectronically si gned by Ibeth Sanchez RN at 12/16/2019 5:00 PM PSTDorothy Polanco RN - 12/16/2019 4: 04 PM PSTPt [...] 4:09 PM documented in thi s encounter H&P Notes Qasim Pederson MD - 12/16/2019 3:20 PM PSTFormatting of this note might be different from t brant original. There have been no significant clinical changes since the completion of the above H&P. Vitals: 12/16/19 1505 BP: 119/57 Pulse: 63 Resp: 18 Temp: CONSTITUTIONAL: Conversant, not indistress EYES: Anicteric sclerae, no lid drag, no proptosis RESP: Normal effort, regular, even, unlabored rate CV: No peripheral edema, rate regular SKIN: [place], warm, dry without rash/lesion MS: ROM not limited, no digital cyanosis, normal gait NEURO: alert and oriented. No focal neurological deficit PSYCH: appropriate affect, speech and tone, judgement and insight intact Vascular:Palpable bilateral brachial and radial pulses. Left arm incisions well healed. End stage renal disease on hemodialysis - The patient will require a new AV access creatio n. Given her vein calibre, we discussed options of fistula verus graft creation. Will plan f or a right arm AVF or AVG creation. Risks of the procedure include bleeding, infection, nerv e damage, venous thrombosis, pulmonary embolism, arteriovenous fistula/graft thrombosis, art erial occlusion, myocardial infarction, stroke and . She understands and wishes to proc eed. Signed consent obtained. Qasim Pederson MD Man Mcfadden PA-C - 11/23/2019 1:00 PM PST [facility] [address] [place], [place] [address] History and Physical Examination REASON FOR EVALUATION / CHIEF COMPLAINT: Vascular Surgery follow up visit to discuss n ew access creation HISTORY OF PRESENT ILLNESS: The patient presents today for a Vascular Surgery follow up visit. She is well known to our service. The patient is39 y.o.femalewith significant past medical history of HTN and ESRDwho presented to [facility] ED with fever and chills with [...] 08/26 patient was emerg ently transferred to [facility] for severe bleeding from left axilla. [...] 10/25/15 showed normal sized kidneys. She initiated TODDLER GUIDE with PD 10/28/15. 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 GERD (gastroesophageal reflux disease) Hypercalcemia 09/07/2017 Hyperphosphatemia [...] STENTS ; Surgeon: Qasim Pederson MD; [place] [facility] [place] [place] AV FISTULA REPAIR Left 09/03/2019 Procedure: Resection of left arm AV graft with wound vac placement; Surgeon: Lexi Posada; [place] [facility] [place] CATHETER REMOVAL 02/04/2019 Procedure: DIALYSIS CATHETER - REMOVAL; Surgeon: Qasim Pederson MD; Location: [facility] MAIN OR ; Service: Vascular; Laterality: N/A; Infected PD catheter removal DEBRIDEMENT Left 07/08/2019 Procedure: LEFT AXILLA WOUND DEBRIDEMENT, WASHOUT AND POSSIBLE WOUND VAC PLACEMENT; Surge on: Qasim Pederson MD; [place] [facility] [place] [place] OTHER SURGICAL HISTORY Left 03/11/2019 AV FISTULA PLACEMENT - Procedure: AV FISTULA; Surgeon: Qasim Pederson MD; [facility]; Service: Vascular; Laterality: Left; OTHER SURGICAL HISTORY HARDWARE PRESENT OTHER SURGICAL HISTORY Right 01/2019 chest wall OTHER SURGICAL HISTORY Left 05/06/2019 AV GRAFT CREATION - Procedure: AV GRAFT CREATION; Surgeon: Qasim Pederson MD; Location: [facility] MAIN OR; Service: Vascular; Laterality: Left; bovine carotid graft OTHER SURGICAL HISTORY Left 05/26/2019 WOUND VAC PLACEMENT/REPLACEMENT - Procedure: WOUND VAC - PLACEMENT - REPLACEMENT; Surgeon : Qasim Pederson MD; Location: [facility] MAIN OR; Service: Vascular; Laterality: Left; PERITONEAL CATHETER PLACEMENT/REMOVAL 10/28/2015 Procedure: LAPAROSCOPIC - PERITONEAL DIALYSIS CATH INSERTION; Surgeon: Mundo Ramos MD; Lo cation: [facility] MAIN OR; Service: Vascular; Laterality: N/A; UPPER GASTROINTESTINAL ENDOSCOPY 09/10/2017 Procedure: ESOPHAGOGASTRODUODENOSCOPY; Surgeon: Beena Peters MD; Location: [facility] ENDOSCOP Y; Service: Gastroenterology; Laterality: N/A; [...] CV: No peripheral edema, rate regular SKIN: [place], warm, dry without rash/lesion MS: ROM not [...] Op Note - Qasim Pederson MD - 12/16/2019 3:24 PM [facility] Service: Vascular Surgery Procedure Note NAME: Ramona Oconnor MR #: [id number] : 1980 DATE OF PROCEDURE: 12/16/2019 SURGEON: Qasim Pederson MD PSYCHOMETRICIAN: Man Jeronimo PA-C (ARLYN was required to help with positioning, prepping and d raping, exposure of vessels, vascular anastomosis and closure). PREOPERATIVE DIAGNOSIS: End stage renal disease POSTOPERATIVE DIAGNOSIS: Same PROCEDURES: Creation of an arteriovenous anastomosis with right brachiobasilic arteriovenou s fistula ANESTHESIA: Regional block and general anesthesia SPECIMEN: None ESTIMATED BLOOD LOSS: 10ml BLOOD ADMINISTERED: None COMPLICATIONS: None CONDITION: Stable INDICATIONS: This is a 39 y.o. female patient who has been diagnosed with end stage renal d isease. The patient will require a new arteriovenous fistula creation for hemodialysis acces s. The patient recently underwent an upper extremity venous duplex ultrasound which revealed suitable anatomy for AVF or AVG creation. The patient also understands that it will take ap proximately six weeks for an arteriovenous fistula to mature following its creation before i t can be accessed for hemodialysis. The patient has been informed that the benefit of this p rocedure is to create an access site for hemodialysis. The patient also understands the risk s and complications of this procedure which include bleeding, hematoma, arterial steal syndr ome, arm ischemia, infection, venous thrombosis, pulmonary embolism, arteriovenous fistula t hrombosis. She agrees with the planned procedure of an arteriovenous fistula creation. PROCEDURE IN DETAIL: The patient was taken to the operating room and placed on the table i n the supine position. Appropriate time out was performed in which all nursing and surgical personnel concurred with the surgical plan. The patient was given regional block and general anesthesia and maintained throughout the entire procedure. The patient's right arm was prep ped sterilely and draped in a standard fashion. A skin scalpel was used to make a skin incis ion in the antecubital fossa in a longitudinal fashion. Dissection was carried down using el ectrocautery. We identified the basilic vein which was isolated circumferentially and encirc led with a vessel loop. We also identified the adjacent brachial artery which was dissected circumferentially and encircled with a vessel loop. The basilic vein was next divided in daniel f and the distal segment of the vein was ligated using a 2-0 silk suture. The proximal segme nt of the basilic vein was flushed with a heparinized saline solution. Next we placed proxim al and distal vascular clamps in the brachial artery. A vertical arteriotomy was performed u sing a #11 blade. The arteriotomy was next extended using a Mendoza scissor. The basilic vein was then connected to the adjacent brachial artery in an end-to-side fashion using a 7-0 pro tamanna suture. Appropriate flushing was also performed at the completion of the vascular anast omosis. An end-to-side brachiobasilic AV fistula was performed without difficulty. Reasonabl e thrills were noted in the arteriovenous fistula at the completion of the anastomotic recon struction. At the end of the arteriovenous fistula reconstruction, the patient has a good ra dial and ulner flow as evidenced by strong palpable pulses. The wound was next irrigated, an d the subcutaneous tissues were closed using 3-0 Vicryl sutures, and skin closure was done u sing 4-0 Monocryl sutures. Skin glue and standard gauze dressing was applied over the incis ion site. The patient remained hemodynamically stable throughout the entire operation. The p atient suffered no complications, and the patient was taken to the recovery room in stable c ondition. I was present throughout the entire procedure. Qasim Pederson MD documented in this encou nter Plan of Treatment Not on filedocumented as [...] [facility] | | | | performed at [facility];[address] | [address] | | | | [address];[place], [place] | | | | | | [address] | | | | + + + + + + + + | Specimen | + + | Blood | + + + + + + + | Performing | Address | City/State/Zipcode | Phone Number | | Organization | | | | + + + + + | [facility] | [address] | [place] [address] | [phone] | + + + + + CBC [...] | | | Absolute | performed at [facility];[address] | LABORAT[address] | | | | [address];[place], [place] | | | | | | [address] | | | | + + + + + + + + | Specimen | + + | Blood | + + + + + + + | Performing | Address | City/State/Zipcode | Phone Number | | Organization | | | | + + + + + | [facility] | [address] | [place] [address] | [phone] | + + + + + Basic [...] 6 (L)Comment: GFR <60: | >60 | KR | | | GFR | CHRONIC KIDNEY [...] | | | | | | [facility]D [facility] traceable | | | | | | equation.Testing | | | | | | performed at [facility];[address] | | | | | | [facility];[place], [place] | | | | | | [address] | | | | + + + + + + + + | Specimen | + + | Blood | + + + + + + + | Performing | Address | City/State/Zipcode | Phone Number | | Organization | | | | + + + + + | [facility] | [address] | [place] [address] | [phone] | + + + + + documented [...] ONCE PRN, Wheezing, | | | Starting [facility] 12/16/19 at 1500, For | | | [...] | | | | | | longer, [id number] use of | | | | | [...] | | | | Mixture PRN, Starting [facility] 12/16/19 | | | | | | | at 1323, Intra-op | | | | | | + +-------+ +--------+---+---+ +-------+ +---+---+---+ | Given | 12/16/19 | | | | | | 20 1:23 | | | | | | PM PST | | | | +-------+ +---+---+---+ + +---+ | | | + +---+ [...] One week or longer, | | | [id number] use of at least | | | [...] + | thrombin (recombinant) | Given | 12/16/19 | 5,000 | | Surgical | | (RECOTHROM) solution PRN, | | 20 2:38 | Units | | Site | | Starting Nina 12/16/19 at 1438, | | PM PST | | | | | Intra-op | | | | | | + +-------+ +--------+---+ + +---+---+ | | | +---+---+ documented in this encounter
--- OUTSIDE RECORDS SUMMARY | ~2020-05-11 | XMS | Encounter Summary ---
Demographics + + + | Address | [address] | | | [place] [address] | + + + | Home Phone | | + + + | Preferred Language | Unknown | + + + | Marital Status | | + + + | Anglican Affiliation | Unknown | + + + [...] [place], [place] | | | | | [address] | | + + + + + | Lydia Palm | ECON | [place], [place] | | | | | [address] | | + + + + + | melinda METZ" | ECON | [place], [place] | | | reba | | [address] | | + + + + + | Jose C Oconnor | ECON | [place] | | | | | [place] | | | | | [address] | | + + + + + Care Team Providers + +------+ + | Care Gravity Prospector Name | Role | Phone | + [...] | | | | | | (FORM[facility]LY [facility]) | | | | | [...] Description | +--------+---------+ + + + | 08/26/ | Surgery | [facility] | Qasim Pederson MD | REVISION LEFT | | 2019 | | [facility] | [address] | AXILLARY AVG; WILL | | | | OPERATING ROOM [address] | [place] [address] [place], [place] | NEED C-ARM, | | | | [address] | [address] | [place], | | | | [place], [place] | | [place] | | | | [address] | | | | | | [phone] | | | +--------+---------+ + + + [...] Physician Discharge Summary Patient ID: Ramona Oconnor [id number] 39 y.o. 1980 Admit date: 08/26/2019 Discharge [...] important to follow up with Vascular offi tanner. Please continue taking the clindamycin every 6 hours for [address] Pedersno will see you in clinic next week [...] 1,600-2,400 mg | | 0 | | 09/08/ | | carbonate (RENVELA) | by mouth [...] might be different f rom the original. [facility] Service: Vascular Surgery Progress Note Post-Op Day: 1 SUBJECTIVE Patient Summary: The patient is a 39 y.o. female with significant past medical histor y of ESRD who presented to [facility] with profuse bleeding from her left axillary AVG af ter wound packing was removed. Per emergency department physician report, the patient had ab out 250ml blood loss, venous bleeding. She received 2 units PRBC transfusion and 1Liter susana talloid. She has been hemodynamincally stable. Patient transferred to [facility] for emergency janine viviana and ligation [...] note might be different from the ave troy [facility] Service: Personal Service Workers Progress Note Ramona Oconnor 39 y.o. Hospital [...] patie nt [facility]. She presented to [facility] ED from [facility] wound care clinic with profuse bleeding of her L axilla after her wound packing was remov ed. Per report EBL was 250 cc of venous blood. She received 1 L crystalloid and 2 units PRBC prior to arrival at [facility] and remained hemodynamically stable. Patient was transferred to [facility] for ligation of the AVG with [...] Last HD 08/25. See Dr. Chi following, BROADCAST MAINTENANCE ENGINEER per nephrology. 1.5 L fluid restricti on in 24 hours per Nephrology. Renally dose medication and avoid nephrotoxins Monitor I/Os Monitor electrolytes. Hyperphosphatemia. Resolved. Continue home dose of Renvela once patient eating. Hyperkalemia. BROADCAST MAINTENANCE ENGINEER per Nephrology ID: Patient with nonhealing AVG wound. Followed by [facility] wound care clinic. Patient was not o [...] PA- C - 08/27/2019 12:31 PM PDT [facility] Service: Vascular Surgery Progress Note Post-Op Day: 1 SUBJECTIVE Patient Summary: The patient is a 39 y.o. female with significant past medical histor y of ESRD who presented to [facility] with profuse bleeding from her left axillary AVG af ter wound packing was removed. Per emergency department physician report, the patient had ab out 250ml blood loss, venous bleeding. She received 2 units PRBC transfusion and 1Liter susana talloid. She has been hemodynamincally stable. Patient transferred to [facility] for emergency janine viviana and ligation [...] Full code Man Jeronimo PA-C Vascular Surgery ATHBennett Lashawn Roger barbara, RECOVERY COLLECTOR - 08/27/2019 12:44 AM PDTFormatting of this note might be different from the ave troy [facility] Service: Personal Service Workers Progress Note Ramona Oconnor 39 y.o. Hospital [...] patie nt has been followed by the [facility] wound care clinic. She presented to [facility] ED from [facility] wound care clinic with profuse bleeding of her L axilla after her wound packing was remov ed. Per report EBL was 250 cc of venous blood. She received 1 L crystalloid and 2 units PRBC prior to arrival at [facility] and remained hemodynamically stable. Patient was transferred to [facility] for ligation of the AVG with [...] nephrology in AM no urgent need for BROADCAST MAINTENANCE ENGINEER overnight. Renally dose medication and avoid nephrotoxins Monitor I/Os Monitor electrolytes. Hyperphosphatemia. Continue home dose of Renvela. ID: Patient with nonhealing AVG wound. Followed by [facility] wound care clinic. Patient was not o [...] all other procedures. BALJIT Guido 08/27/2019 Samira Mike, RN - 08/26/2019 6:50 PM PDTHemodialysis catheter accessed for IV fluids on the venous (blue) port. Anesthesia stated to this RN that life flight had accessed port in rout e to [facility]. This RN started PIV to right upper arm/AC area when patient brought to pacu. This info reported to RESPONDER. 8: 33 PM PDTdocumented in this encounter H&P Notes Lashawn Jansen, BALJIT - 08/26/2019 8:47 PM PDTFormatting of this note might be di fferent from the original. [facility] Service: Personal Service Workers Admission History & Physical Ramona Oconnor 39 [...] patien t has been followed by the [facility] wound care clinic. She presented to [facility] ED from th e wound care clinic with profuse bleeding of her L axilla after her wound packing was remove d. Per report EBL was 250 cc of venous blood. She received 1 L crystalloid and 2 units PRBC prior to arrival at [facility] and remained hemodynamically stable. Patient was transferred to [facility] for ligation of the AVG [...] 10/25/15 showed normal sized kidneys. She initiated BROADCAST MAINTENANCE ENGINEER with PD 10/28/15. 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 GERD (gastroesophageal reflux disease) Hypercalcemia 09/07/2017 Hyperphosphatemia [...] PLACEMENT; Surge on: Qasim Pederson MD; Location: [facility] MAIN OR OTHER SURGICAL HISTORY Left 03/11/2019 AV FISTULA PLACEMENT - Procedure: AV FISTULA; Surgeon: Qasim Pederson MD; Location: [facility] OR; Service: Vascular; Laterality: Left; OTHER SURGICAL HISTORY HARDWARE PRESENT OTHER SURGICAL HISTORY Right 01/2019 chest wall OTHER SURGICAL HISTORY Left 05/06/2019 AV GRAFT CREATION - Procedure: AV GRAFT CREATION; Surgeon: Qasim Pederson MD; Location: [facility] MAIN OR; Service: Vascular; Laterality: [...] nephrology in AM no urgent need for BROADCAST MAINTENANCE ENGINEER overnight. Renally dose medication and avoid nephrotoxins Monitor I/Os Monitor electrolytes. Hyperphosphatemia. Continue home dose of Renvela. ID: Patient with nonhealing AVG wound. Followed by [facility] wound care clinic. Patient was not o [...] QPM I/O last 3 completed shifts: In: 0 [I.V.:2200] Out: - No intake/output data recorded. [...] did not uncover it as dressed y ester by Vasc Surg team. Recent Labs 08/27/19 0755 08/27/19 0414 08/26/19203008/26/19 1856 BUN 30* 26* 24 -- CREA [...] FUNCTION: No RKF There is an acute BROADCAST MAINTENANCE ENGINEER indication No IVF need Strict I/O & daily weights. Dose all of her meds to her current intermittent HD. Continue to avoid all kinds of nephrotoxins. Target euvolumia with a MAP>75 mmHg as possible. BLOOD PRESSURE: soft Plan minimal UF today Vasoactive meds as ordered Monitor BP closely & frequently ELECTROLYTES: Severely abnormal. There is an acute BROADCAST MAINTENANCE ENGINEER indication Sodium: ok Potassium: severe hyperkalemia Calcium: [...] with questions or concerns. Santos Chi MD ATHPoQasim de la rosa MD - 08/10 4:50 PM PDT [facility] Service: Vascular Surgery Initial Consult Note Date of Admission: 08/26/2019 Date of Consultation: 08/26/2019 Reason for Consultation: Left axillary AVG bleeding after wound packing removal History Obtained From: Patient, chart review Code Status: Prior CHIEF COMPLAINT: AVG bleeding; Left axillary HISTORY OF PRESENT ILLNESS The patient is a 39 y.o. female with significant past medical history of ESRD who presented to [facility] with profuse bleeding from her left axillary AVG after wound packing was r emoved. Per emergency department physician report, the patient had about 250ml blood loss, v enous bleeding. She received 2 units PRBC transfusion and 1Liter crystalloid. She has been h emodynamincally stable. Patient transferred to [facility] for emergency surgery and ligation of AV [...] 10/25/15 showed normal sized kidneys. She initiated BROADCAST MAINTENANCE ENGINEER with PD 10/28/15. 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 GERD (gastroesophageal reflux disease) Hypercalcemia 09/07/2017 Hyperphosphatemia [...] PLACEMENT; Surge on: Qasim Pederson MD; Location: [facility] MAIN OR OTHER SURGICAL HISTORY Left 03/11/2019 AV FISTULA PLACEMENT - Procedure: AV FISTULA; Surgeon: Qasim Pederson MD; Location: [facility] OR; Service: Vascular; Laterality: Left; OTHER SURGICAL HISTORY HARDWARE PRESENT OTHER SURGICAL HISTORY Right 01/2019 chest wall OTHER SURGICAL HISTORY Left 05/06/2019 AV GRAFT CREATION - Procedure: AV GRAFT CREATION; Surgeon: Qasim Pederson MD; Location: [facility] MAIN OR; Service: Vascular; Laterality: [...] Care Goal: Plan of Care Review 08/28/2019 165 by Amrita Steele RN Outcome: Met 08/28/2019 1241 by Amrita Steele RN Outcome: Ongoing, progressing Goal: Patient-Specific Goal Outcome: Met Goal: Absence of Hospital-Acquired Illness or Injury Outcome: Met Goal: Optimal Comfort and Wellbeing Outcome: Met Goal: Readiness for Transition of Care Outcome: Met Goal: Rounds/Family Conference Outcome: Met Problem: Fall Injury Risk Goal: Absence of Fall and Fall-Related Injury 08/28/2019 165 by Amrita Steele RN Outcome: Met 08/28/2019 1241 by Amrita Steele RN Outcome: Ongoing, progressing Problem: Skin Injury Risk Increased Goal: Skin Health and Integrity Outcome: Met All discharge criteria has been met. Patient's pain and nausea is well under control. Pt h as ambulated in room, had a bowel movement, and ate a small lunch. Clear to discharge per Dr Iris Chi and Dr. Pederson. joni of Care - [...] socks at all times . lan of Dex - April Marques RN - 08/27/2019 9:53 PM PDTPatient alert/oriented, received dialysis today, and sh ows no new signs of bleeding or infection at left axillary site. Will continue to monitor an d notify provider of any significant changes. Electronically signed by April Marques RN at 9:55 PM PDTPlan of Care - Jessica Kramer MSW - 08/27/2019 3:28 PM PDTCare Manag [...] Discharge: Next Steps: Notes: Pt goe-s to [facility] on MWF for dialysis. Member of [facility]. Pt reportedly lives with her spouse and a sister Lydia? Will assess this when I can talk with pt or family calls/arrives. Electronically signed: LUCILLE GAMA 08/27/2019 15:28 lan of Care - Jessica Blum MSW - 08/27/2019 3:19 PM PDTUnable to complete assessment. Pt sleeping and gett ing dialysis. I called her emergency contact which is her mother Lyubov ([phone]). Le ft a message requesting a return call. From review of earlier chart notes when pt was hospitalized in January of 2019, pt goes to [facility] on MWF. She has Medicare and [employer] insurance and is also fo llowed by [facility]. Her CM is Lorna at [phone]. lan of Care - Amrita Holloway RN [...] to the bathroom.Elect ronically signed by Amrita Steele, MICHELLE at 08/27/2019 2:17 PM PDTGoals of Care [...] Qasim Pederson MD - 08/26/2019 6:18 PM [facility] Service: Vascular Surgery Procedure Note NAME: Ramona Oconnor MR #: [id number] : 1980 DATE OF PROCEDURE: 08/26/2019 SURGEON: Qasim Pederson MD CREATIVE SERVICES PRODUCER: Man Jeronimo PA-C (ARLYN was required to [...] artery to axillary vein arteriovenous graft [facility] three months ago. The patient developed left [...] | ARLENE AGUILERA CG8, | Routin | 08/26/2019 | | [...] DAWNA | | | | performed at [facility];[address] | | LABORATORY | | | | [address];[place] | | | | | | [address] | | | | + + + + + + + + | Specimen | + + | Blood | + + + + + + + | Performing | Address | City/State/Zipcode | Phone Number | | Organization | | | | + + + + + | [facility] | [address] | [place] [address] | [phone] | + + + + + Magnesium (08/28/2019 4:02 AM PDT) + + + + + + | Component | Value | Ref Range | Performed | Pathologist | | | | | At | Signature | + + + + + + | Magnesium | 2.5 (H)Comment: Testing | 1.7 - 2.4 mg/dL | [place] | | | | performed at [facility];[address] | | LABORATORY | | | | [facility];[place], [place] | | | | | | [address] | | | | + + + + + + + + | Specimen | + + | Blood | + + + + + + + | Performing | Address | City/State/Zipcode | Phone Number | | Organization | | | | + + + + + | [facility] | [address] | [place] [address] | [phone] | + + + + + CBC [...] | | | Absolute | performed at [facility];[address] | K/uL | LABORATORY | | | | [address];[place], [place] | | | | | | [address] | | | | + + + + + + + + | Specimen | + + | Blood | + + + + + + + | Performing | Address | City/State/Zipcode | Phone Number | | Organization | | | | + + + + + | [facility] | [address] | [place] [address] | [phone] | + + + + + Basic [...] 8 (L)Comment: GFR <60: | >60 | [facility] | | | GFR | CHRONIC [...] | | | | | | MDRD IDAZ traceable | | | | | | equation.Testing | | | | | | performed at [facility] | | | | | | [facility];[place], [place] | | | | | | [address] | | | | + + + + + + + + | Specimen | + + | Blood | + + + + + + + | Performing | Address | City/State/Zipcode | Phone Number | | Organization | | | | + + + + + | [facility] | [address] | [place] [address] | [phone] | + + + + + Hepatitis B Surface Ag (08/28/2019 4:02 AM PDT) + + + + + + | Component | Value | Ref Range | Performed | Pathologist | | | | | At | Signature | + + + + + + | Hepatitis B | NON REACTIVEComment: | NR | [facility] | | | Surface Ag | Testing performed at | | LABORATORY | | | | T[facility], [address] | | | | | | [place] | | | | | | [address] | | | | + + + + + + + + | Specimen | + + | Blood | + + + + + + + | Performing | Address | City/State/Zipcode | Phone Number | | Organization | | | | + + + + + | [facility] | [address] | [place] [address] | [phone] | + + + + + Potassium (08/27/2019 7:52 PM PDT) + + + + + + | Component | Value | Ref Range | Performed | Pathologist | | | | | At | Signature | + + + + + + | K | 3.8Comment: Testing | 3.5 - 4.9 | [facility] | | | | performed at [facility];888 | mmol/L | LABORATORY | | | | [address];[place], [place] | | | | | | [address] | | | | + + + + + + + + | Specimen | + + | Blood | + + + + + + + | Performing | Address | City/State/Zipcode | Phone Number | | Organization | | | | + + + + + | [facility] | [address] | [place] [address] | [phone] | + + + + + Hepatitis [...] | | | | T[facility], [address] [facility] | | | | | | [address], [place] | | | | | | [address] | | | | + + + [...] HOSPITAL LABORATORY | [address] | [place] [address] | [phone] | + + + + + POC Glucose (08/27/2019 9:29 AM PDT) + + + + + + | Component | Value | Ref Range | Performed | Pathologist | | | | | At | Signature | + + + + + + | Glucose, | 81Comment: Testing | 65 - 99 mg/dL | [place] | | | POC | performed at [facility];[address] | | LABORATORY | | | | [address];[place] | | | | | | [address] | | | | + + + + + + + + | Specimen | + + | | + + + + + + + | Performing | Address | City/State/Zipcode | Phone Number | | Organization | | | | + + + + + | [facility] | [address] | [place] [address] | [phone] | + + + + + Basic [...] | LABORATORY | | | | RESULTS VERIFIEDFELIPE W | | | | | | ON 10RP AT 0831 BY CRK | | | | | |FELIPE W ON 10RP AT 0831 BY CRK | [...] | | | | | performed at [facility];[address] | | | | | | [address];[place] | | | | | | [address] | | | | + + + + + + + + | Specimen | + + | Blood | + + + + + + + | Performing | Address | City/State/Zipcode | Phone Number | | Organization | | | | + + + + + | [facility] | [address] | [place] [address] | [phone] | + + + + + Basic [...] | | | | TO FELIPE Aceves RN/AgataRP AT | mmol/L | LABORATORY | | [...] | | | | | performed at [facility];[address] | | | | | | [address];[place], [place] | | | | | | [address] | | | | + + + + + + + + | Specimen | + + | | + + + + + + + | Performing | Address | City/State/Zipcode | Phone Number | | Organization | | | | + + + + + | [facility] | [address] | [place] [address] | [phone] | + + + + + Phosphorus (08/27/2019 4:14 AM PDT) + + + + + + | Component | Value | Ref Range | Performed | Pathologist | | | | | At | Signature | + + + + + + | Phosphorus | 5.7 (H)Comment: Testing | 2.3 - 4.8 mg/dL | [facility] | | | | performed at [facility];[address] | | LABORATORY | | | | [address];[place], [place] | | | | | | [address] | | | | + + + + + + + + | Specimen | + + | Blood | + + + + + + + | Performing | Address | City/State/Zipcode | Phone Number | | Organization | | | | + + + + + | [facility] | [address] | [place] [address] | [phone] | + + + + + Magnesium (08/27/2019 4:14 AM PDT) + + + + + + | Component | Value | Ref Range | Performed | Pathologist | | | | | At | Signature | + + + + + + | Magnesium | 2.8 (H)Comment: Testing | 1.7 - 2.4 mg/dL | [facility] | | | | performed at [facility];[address] | | LABORATORY | | | | [address];[place] | | | | | | [address] | | | | + + + + + + + + | Specimen | + + | Blood | + + + + + + + | Performing | Address | City/State/Zipcode | Phone Number | | Organization | | | | + + + + + | [facility] | [address] | [place] [address] | [phone] | + + + + + CBC [...] | | | | | performed at [facility] | | | | | | [address] [facility];[place], [place] | | | | | | [address] | | | | + + + + + + + + | Specimen | + + | Blood | + + + + + + + | Performing | Address | City/State/Zipcode | Phone Number | | Organization | | | | + + + + + | [facility] | [address] | [place] [address] | [phone] | + + + + + Culture, [...] | | LABORATORY | | | | Blvd;[place] [address] | | | | + + + + + + | RESULT | NO GROWTH 6 DAYS | | [facility] | | | | | | LABORATORY | | + + + + + + | RESULT | Testing performed at | | [facility] | | | | [facility], [address] [facility] | | LABORATORY | | | | [place] | | | | | | [address]Ojitjcx: Testing | | | | | | performed at [facility], [address] | | | | | | [address], [place], [place] | | | | | | [address] | | | | + + + [...] HOSPITAL LABORATORY | [address] | [place] [address] | [phone] | + + + + + Procalcitonin (08/26/2019 9:29 PM PDT) + + + + + + | Component | Value | Ref Range | Performed | Pathologist | | | | | At | Signature | + + + + + + | PROCALCITON | 0.80 (H)Comment: | <0.5 ng/mL | [place] | | | IN | INTERPRETIVE | [...] | | | | | | at [facility];[address] [place] [address] | | | | | | [facility];[place] [address] | | | | + + + + + + + + | Specimen | + + | Blood | + + + + + + + | Performing | Address | City/State/Zipcode | Phone Number | | Organization | | | | + + + + + | [facility] | [address] | [place] [address] | [phone] | + + + + + Lactic Acid (08/26/2019 9:29 PM PDT) + + + + + + | Component | Value | Ref Range | Performed | Pathologist | | | | | At | Signature | + + + + + + | Lactate, | 1.8Comment: Testing | 0.4 - 2.0 | [place] | | | Serum | performed at [facility];[address] | mmol/L | LABORATORY | | | | [address];[place] | | | | | | [address] | | | | + + + + + + + + | Specimen | + + | Blood | + + + + + + + | Performing | Address | City/State/Zipcode | Phone Number | | Organization | | | | + + + + + | [facility] | [address] | [place] [address] | [phone] | + + + + + Culture, [...] | [facility] | | | Requests | [facility];[address] | | LABORATORY | | | | [address];[place] [address] | | | | + + + + + + | RESULT | NO GROWTH 6 DAYS | | [facility] | | | | | | LABORATORY | | + + + + + + | RESULT | Testing performed at | | [facility] | | | | [facility], [address] [facility] | | LABORATORY | | | | [place], [place] | | | | | | [id number]: Testing | | | | | | performed at [facility], [address] | | | | | | [facility], [place], [place] | | | | | | [address] | | | | + + + [...] HOSPITAL LABORATORY | [address] | [facility] [place] [address] | [phone] | + + + + + MRSA [...] [facility] | | | | performed at [facility];[address] | | LABORATORY | | | | [address];[place] | | | | | | [address] | | | | + + + [...] HOSPITAL LABORATORY | [address] | [place] [address] | [phone] | + + + + + Basic [...] 8.4 (L) | 8.5 - 10.5 | [facility] [...] | | | | | performed at [facility] | | | | | | [address] [facility];[place], [place] | | | | | | [address] | | | | + + + + + + + + | Specimen | + + | Blood | + + + + + + + | Performing | Address | City/State/Zipcode | Phone Number | | Organization | | | | + + + + + | [facility] | [address] | [place] [address] | [phone] | + + + + + Phosphorus (08/26/2019 8:31 PM PDT) + + + + + + | Component | Value | Ref Range | Performed | Pathologist | | | | | At | Signature | + + + + + + | Phosphorus | 6.9 (H)Comment: Testing | 2.3 - 4.8 mg/dL | [facility] | | | | performed at [facility];[address] | | LABORATORY | | | | [address];[place] | | | | | | [address] | | | | + + + + + + + + | Specimen | + + | Blood | + + + + + + + | Performing | Address | City/State/Zipcode | Phone Number | | Organization | | | | + + + + + | [facility] | [address] | [place] [address] | [phone] | + + + + + Magnesium (08/26/2019 8:31 PM PDT) + + + + + + | Component | Value | Ref Range | Performed | Pathologist | | | | | At | Signature | + + + + + + | Magnesium | 2.6 (H)Comment: Testing | 1.7 - 2.4 mg/dL | [facility] | | | | performed at [facility] [place] | | LABORATORY | | | | [facility];[place], [place] | | | | | | [address] | | | | + + + + + + + + | Specimen | + + | Blood | + + + + + + + | Performing | Address | City/State/Zipcode | Phone Number | | Organization | | | | + + + + + | [facility] | [address] | [place] [address] | [phone] | + + + + + CBC with Differential (08/26/2019 8:31 PM PDT) + + + + + + | Component | Value | Ref Range | Performed | Pathologist | | | | | At | Signature | + + + + + + | WBC | 29.30 (H) | 3.80 - 11.00 | KR | | | | | K/uL | [...] LABORATORY | | | | performed at [facility] [place];[facility] | | | | | | [facility];[place], [place] | | | | | | [address] | | | | + + + + + + + + | Specimen | + + | Blood | + + + + + + + | Performing | Address | City/State/Zipcode | Phone Number | | Organization | | | | + + + + + | [facility] | [address] | [place] [address] | [phone] | + + + + + POC Glucose (08/26/2019 8:13 PM PDT) + + + + + + | Component | Value | Ref Range | Performed | Pathologist | | | | | At | Signature | + + + + + + | Glucose, | 129 (H)Comment: Testing | 65 - 99 mg/dL | [facility] | | | POC | performed at [facility] [place];[address] | | LABORATORY | | | | [address];[place] | | | | | | [address] | | | | + + + + + + + + | Specimen | + + | | + + + + + + + | Performing | Address | City/State/Zipcode | Phone Number | | Organization | | | | + + + + + | [facility] | [address] | [place] [address] | [phone] | + + + + + POC ISTAT, CG8, Arterial (08/26/2019 6:56 PM PDT) + + [...] 13.3Comment: Testing | 11.6 - 15.5 | [facility] | | | POC | performed at [facility] [place];888 | g/dL | LABORATORY | | | | [address];[place] | | | | | | [address] | | | | + + + + + + + + | Specimen | + + | | + + + + + + + | Performing | Address | City/State/Zipcode | Phone Number | | Organization | | | | + + + + + | [facility] | [address] | [place] [address] | [phone] | + + + + + Echo [...] | | + +---------+ + + POC WILLY CG8, Arterial (08/26/2019 6:03 PM PDT) + [...] | | | POC | performed at [facility] [place];888 | g/dL | LABORATORY | | | | [address];[place], [place] | | | | | | [address] | | | | + + + + + + + + | Specimen | + + | | + + + + + + + | Performing | Address | City/State/Zipcode | Phone Number | | Organization | | | | + + + + + | [facility] | [address] | [place] [address] | [phone] | + + + + + documented [...] | | | | + +--------+ +------+------+------+ + +---+ | | | + +---+ | bisacodyl (DULCOLAX) | | | suppository 10 mg 10 mg, Rectal, | | | DAILY PRN, Constipation, | | | Starting [facility] 08/26/19 at 2010, If | | [...] | heparin 5,000 units/mL | Given | 08/26/20 | 5,000 | | Other | | injection PRN, Starting Nina | | 19 5:12 | Units | | (Comment | | 08/26/19 at 1712, Intra-op | | PM PDT | | | ) | + +-------+ +--------+---+ + +---+---+ | [...] | Decreased Responsiveness, | | | Starting 08/27/19 at 0637 | | + +---+ [...] | + +---+ + +-------+ +-------+---+---+ | promethazine (PHENERGAN) tablet [...] - PRN, Hypotension, | | | Starting 08/27/19 at 0935, | | | Treatment date(s): 08/27/2019, | | | For BP less than 100 mm Hg. Give | | | 100 mL bolus up to 1000 mL. | | | DIALYSIS USE ONLY - DISCONTINUE | | | AFTER DIALYSIS THERAPY IS | | | COMPLETE, | | + +---+ | | | + +---+ + +-------+ +--------+---+ + | thrombin (recombinant) | Given | 08/26/20 | 5,000 | | Other | | (RECOTHROM) solution PRN, | | 19 5:10 | Units | | (Comment | | Starting [facility] 08/26/19 at 1710, | | PM PDT | | | ) | | Intra-op | | | | | | + +-------+ +--------+---+ + +---+---+ | | | +---+---+ + +-------+ +------+---+---+ | zolpidem (AMBIEN) tablet 5 mg | Given | 08/27/20 | 5 mg | | | | 5 mg, Oral, NIGHTLY PRN, | | 19 10:31 | | | | | Insomnia, Starting 08/27/19 | | PM PDT | | | | | at 2220 | | | | | | + +-------+ +------+---+---+ +---+---+ | | | +---+---+ documented in this encounter
--- OUTSIDE RECORDS SUMMARY | ~2020-05-11 | XMS | Encounter Summary ---
Demographics + + + | Address | [address] | | | [place] [address] | + + + | Home Phone | | + + + | Preferred Language | Unknown | + + + | Marital Status | | + + + | Restorationist Affiliation | Unknown | + + + [...] [place], [place] | | | | | [address] | | + + + + + | Lydia Palm | ECON | [place], [place] | | | | | [address] | | + + + + + | melinda METZ" | ECON | [place], [place] | | | [place]ba | | [address] | | + + + + + | Jose C Oconnor | ECON | [address] [place] | | | | | [place] | | | | | [address] | | + + + + + Care Team Providers + +------+ + | Care Train Announcer Name | Role | Phone | + +------+ + | Juan F Whitley DO | PCP | | + +------+ + Encounter Details +--------+ + + + + | Date | Type | Department | Care Team | Description | +--------+ + + + + | 03/11/ | Hospital | [facility] | Qasim Pederson MD | | | 2019 | Encounter | [facility] | [address] | | | | | [address]PER[address] | [address] [place] | | | | | [place] | [id number] | | | | | [place] | | | | | | [address] | | | | | | [phone] | | | +--------+ + + + [...] Progress Notes Conversion Transaction, Provider Unknown - 03/11/2019 4:14 PM PDTFormatting of this note m ight be different from the original. Nurse Progress Note by Janie Suresh RN at 03/11/19 1614 Author: Janie Suresh RN Service: (none) Author Type: Registered Nurse Filed: 03/11/192017 Date of Service: 03/11/19 1614 Status: Signed Benefits Consulting Analyst: Janie Suresh RN (Registered Nurse) Discharge instructions completed with pt and family. Dressing care, activity restrictions, return demonstration for assessing fistula bruit. Pain control, education regarding splint a nd regional block, s/s infection/DVT discussed. Script provided to pt with written instructi ons. Mando Jeronimo PA-C removed HD cath sutures. Pt taught to follow-up with Dr. Pederson's office regarding follow-up care. VSS. Site c/d/i. Splint applied. Respiratory effort. Pt denies tatiana n and N/V. Escorted to personal auto in stable condition. Janie Suresh RN 03/11/2019 1614 onver patric Transaction, Provider Unknown - 03/11/2019 2:45 PM PDT Progress Notes by Frandy Alex RPH at 03/11/19 1445 Author: Frandy Alex RPH Service: Pharmacy Author Type: Pharmacist Filed: 03/11/19 1445 Date of Service: 03/11/19 1445 Status: Signed Benefits Consulting Analyst: Frandy Alex RPH (Pharmacist) Clinical Pharmacy Note: Renal Monitoring Ramona Oconnor 39 y.o. female Ht Readings from Last 1 Encounters: 03/11/19 1.575 m (5' 2") Wt Readings from Last 1 Encounters: 03/11/19 81.4 kg (179 lb 7.3 oz) CREATININE Date Value Ref Range Status 03/11/2019 6.23 (H) 0.50 - 1.00 mg/dL Final Serum creatinine: 6.23 mg/dL (H) 03/11/19 1104 Estimated creatinine clearance: 11.7 mL/min (A) Pharmacy dosing for renal function per NICKY Jeronimo. Currently, there are no medications needing to be adjusted. Pharmacy will continue to monit or for changes in medication orders and in renal function and adjust accordingly. [place] Alex brian 03/11/2019 2:45 PM onver patric Transaction, Provider Unknown - 03/11/2019 2:10 PM PDT Nurse Progress Note by Esthela Nieto RN at 03/11/19 1410 Author: Esthela Nieto RN Service: General Surgery Author Type: Registered Nurse Filed: 03/11/19 1433 Date of Service: 03/11/19 1410 Status: Signed Benefits Consulting Analyst: Esthela Nieto RN (Registered Nurse) Pt c/o L shoulder pain 04/19. Pt feels no pain in lower arm at this time. See Mar. Will c ontinue to monitor. Esthela Nieto RN docume nted in this encounter H&P Notes Qasim Pederson MD - 03/11/2019 11:51 AM PDTFormatting of this note might be different from t he original. Interval H&P Note by Qasim Pederson MD at 03/11/19 1151 Author: Qasim Pederson MD Service: Vascular Surgery Author Type: Physician Filed: 03/11/19 1152 Date of Service: 03/11/19 1151 Status: Signed Benefits Consulting Analyst: Qasim Pederson MD (Physician) [facility] Service: Vascular Surgery Pre-Operative History & Physical Interval Update There have been no significant clinical changes since the completion of the above H&P. Tod ays physical assessment showed HP update PE: Normal appearance, alert and oriented X3 and r espiratory effort normal. Qasim Pederson MD 03/11/2019 *CORE MEASURES REMINDER: If the patient has a known or suspected infection prior to surger y, please add diagnosis to the problem list (consider: Infection 136.9). Source Note Author: Man Jeronimo PA-C Service: (none) Author Type: Physician Stapler Machine - Certifi ed Filed: 03/11/19 1111 Date of Service: 03/02/19 1300 Status: Signed Benefits Consulting Analyst: Man Jeronimo PA-C (Physician Stapler Machine - Certified) [facility] V[facility] Surgery [facility] History and Physical Examination REASON FOR EVALUATION / CHIEF COMPLAINT: Follow up and evaluation of arteriovenous acce ss creation for hemodialysis HISTORY OF PRESENT ILLNESS: Ramona Oconnor is a 39 y.o. female patient who has been diagnosed with end stage renal disease and is here for evaluation of arteriovenous fistula (AVF) or hemodialysis access creation. She is known to our service. She has a significant [facility] medical history of hypertension, diverticulitis, and end stage renal disease on peritonea l dialysis who presented to [facility] Emergency Department with complaints for worsening abdomina l pain and nausea. She was admitted to the hospital for peritonitis and underwent removal of her peritoneal dialysis catheter and placement of a tunneled hemodialysis catheter to initi ate hemodialysis as an inpatient. One month priot o her most recent hospitalization, she was diagnosed with bacterial peritonitis secondary to diverticulitis and was admitted for treat ment. She was treated with intravenous and intraperitoneal antibiotics. She was eventually d ischarged and did well for a few weeks but developed severe nausea and abdominal pain, promp ting her most recent admission. The patient is a right handed person. The patient is receiving hemodialysis on Friday, and Friday. She continues to use her right sided hemodialysis catheter for dialysis ac [facility]. The patient will require a new AVF creation for hemodialysis access. The patient under stands that an AVF is preferred over hemodialysis via tunneled permacath, as the latter has a greater incidence of catheter-related complications including catheter infection and elenita ter occlusion. The patient also understands that it takes at least six weeks for an AVF to m ature following its creation before it can be accessed for hemodialysis. She is referred to us for the evaluation and creation of an AV access. PAST SURGICAL HISTORY: The patient has a past surgical history that includes Peritoneal cat heter insertion (N/A, 10/28/2015); Esophagogastroduodenoscopy (N/A, 09/10/2017); and Catheter Removal (N/A, 02/04/2019). PAST MEDICAL HISTORY: The patient has a past medical history of Diverticulitis (01/05/2019); Diverticulosis; ESRD on peritoneal dialysis (HCC) (10/28/2015); GERD (gastroesophageal refl ux disease); Hypercalcemia (09/07/2017); Hyperphosphatemia (10/28/2015); Hypocalcemia (10/28); Hypokalemia (06/04/2017); Itching (10/28/2015); Metabolic acidosis (10/28/2015); Obes ity; Peritonitis associated with peritoneal dialysis (HCC) (01/24/2017); Peritonitis due to infected peritoneal dialysis catheter (HCC) (12/08/2018); Secondary hyperparathyroidism (HCC) ; and Uremia (10/28/2015). FAMILY HISTORY: The patient's family [...] constipation, black or bloody stools. She reports recent abd ominal pain, nausea, vomiting, and decreased appetite. She has chronic diarrhea. Genito-Urinary: She does not make any urine [...] clots, bruising, fatig ue, swollen lymph nodes. Has anemia of chronic disease. Endocrine: negative for thyroid disease, heat or cold intolerance, polyuria, polydipsia Psychiatric: negative for sleep disturbance, suicidal ideation, anxiety disorder, history of hallucinations. Positive for history of depression. VITAL SIGNS: BP 119/85 (BP Location: Right upper arm, Patient Position: Sitting) | Pulse 9 4 | SpO2 97% . PHYSICAL EXAM: Constitutional: Well nourished, no signs of distress HENT: Non icteric sclerae, oropharynx clear. Normocephalic and atraumatic. Lymphadenopathy: Shehas no cervical or supraclavicular adenopathy Cardiovascular: Normal rate, regular rhythm Pulmonary/Chest: No [...] in pl [place], no signs of infection. ASSESSMENT & PLAN: End-stage renal disease on hemodialysis - The patient will require AV access creation. We p joni to perform an AV fistula creation for dialysis access. Based on her vein mapping [facility], we will plan to do a left brachiobasilic AVF, which will likely require superficial ization. Benefits and risks of operation were explained to the patient. The purpose of the planned procedure is to create a hemodialysis access. Potential risks of the wilder nned procedure including vessel rupture, arterial thrombosis, arterial occlusion, bleedi ng, brachial plexus injury, hematoma formation, and contrast-induced allergic reactio ns were explained to the patient, and the patient agreed to proceed. The planned operation o f AV access creation is scheduled for March 11, 2019 at [facility] Operat ing Room. Man Jeronimo PA-C Vascular Surgery Man Jha PA-C - 03/02/2019 1:00 PM PDT H&P (View-Only) by Man Jeronimo PA-C at 03/02/19 1300 Author: Man Jeronimo PA-C Service: (none) Author Type: Physician Stapler Machine - Certifi ed Filed: 03/11/19 1111 Date of Service: 03/02/19 1300 Status: Signed Benefits Consulting Analyst: Man Jeronimo PA-C (Physician Stapler Machine - Certified) [facility] Vascular Surgery Clinic History and Physical Examination REASON FOR EVALUATION / CHIEF COMPLAINT: Follow up and evaluation of arteriovenous acce ss creation for hemodialysis HISTORY OF PRESENT ILLNESS: Ramona Oconnor is a 39 y.o. female patient who has been diagnosed with end stage renal disease and is here for evaluation of arteriovenous fistula (AVF) or hemodialysis access creation. She is known to our service. She has a significant [facility] medical history of hypertension, diverticulitis, and end stage renal disease on peritonea l dialysis who presented to [facility] Emergency Department with complaints for worsening abdomina l pain and nausea. She was admitted to the hospital for peritonitis and underwent removal of her peritoneal dialysis catheter and placement of a tunneled hemodialysis catheter to initi ate hemodialysis as an inpatient. One month priot o her most recent hospitalization, she was diagnosed with bacterial peritonitis secondary to diverticulitis and was admitted for treat ment. She was treated with intravenous and intraperitoneal antibiotics. She was eventually d ischarged and did well for a few weeks but developed severe nausea and abdominal pain, promp ting her most recent admission. The patient is a right handed person. The patient is receiving hemodialysis on Friday, and Friday. She continues to use her right sided hemodialysis catheter for dialysis ac cess. The patient will require a new AVF creation for hemodialysis access. The patient under stands that an AVF is preferred over hemodialysis via tunneled permacath, as the latter has a greater incidence of catheter-related complications including catheter infection and elenita ter occlusion. The patient also understands that it takes at least six weeks for an AVF to m ature following its creation before it can be accessed for hemodialysis. She is referred to us for the evaluation and creation of an AV access. PAST SURGICAL HISTORY: The patient has a past surgical history that includes Peritoneal cat heter insertion (N/A, 10/28/2015); Esophagogastroduodenoscopy (N/A, 09/10/2017); and Catheter Removal (N/A, 02/04/2019). PAST MEDICAL HISTORY: The patient has a past medical history of Diverticulitis (01/05/2019); Diverticulosis; ESRD on peritoneal dialysis (HCC) (10/28/2015); GERD (gastroesophageal refl ux disease); Hypercalcemia (09/07/2017); Hyperphosphatemia (10/28/2015); Hypocalcemia (10/28); Hypokalemia (06/04/2017); Itching (10/28/2015); Metabolic acidosis (10/28/2015); Obes ity; Peritonitis associated with peritoneal dialysis (HCC) (01/24/2017); Peritonitis due to infected peritoneal dialysis catheter (HCC) (12/08/2018); Secondary hyperparathyroidism ([facility]) ; and Uremia (10/28/2015). FAMILY HISTORY: The patient's family [...] constipation, black or bloody stools. She reports recent abd ominal pain, nausea, vomiting, and decreased appetite. She has chronic diarrhea. Genito-Urinary: She does not make any urine [...] clots, bruising, fatig ue, swollen lymph nodes. Has anemia of chronic disease. Endocrine: negative for thyroid disease, heat or cold intolerance, polyuria, polydipsia Psychiatric: negative for sleep disturbance, suicidal ideation, anxiety disorder, history of hallucinations. Positive for history of depression. VITAL SIGNS: BP 119/85 (BP Location: Right upper arm, Patient Position: Sitting) | Pulse 9 4 | SpO2 97% . PHYSICAL EXAM: Constitutional: Well nourished, no signs of distress HENT: Non icteric sclerae, oropharynx clear. Normocephalic and atraumatic. Lymphadenopathy: Shehas no cervical or supraclavicular adenopathy Cardiovascular: Normal rate, regular rhythm Pulmonary/Chest: No [...] in pl [place], no signs of infection. ASSESSMENT & PLAN: End-stage renal disease on hemodialysis - The patient will require AV access creation. We p joni to perform an AV fistula creation for dialysis access. Based on her vein mapping ult rasound, we will plan to do a left brachiobasilic AVF, which will likely require superficial ization. Benefits and risks of operation were explained to the patient. The purpose of the planned procedure is to create a hemodialysis access. Potential risks of the wilder nned procedure including vessel rupture, arterial thrombosis, arterial occlusion, bleedi ng, brachial plexus injury, hematoma formation, and contrast-induced allergic reactio ns were explained to the patient, and the patient agreed to proceed. The planned operation o f AV access creation is scheduled for March 11, 2019 at [facility] Operat ing Room. Man Jeronimo PA-C Vascular Surgery documented in this encounter Miscellaneous Notes Op Note - Qasim Pederson MD - 03/11/2019 2:40 PM PDTFormatting of this note might be differ ent from the original. Op Note by Qasim Pederson MD at 03/11/19 1440 Author: Qasim Pederson MD Service: Vascular Surgery Author Type: Physician Filed: 03/11/19 2597 Date of Service: 03/11/19 1440 Status: Signed Benefits Consulting Analyst: Qasim Pederson MD (Physician) [facility] Service: Vascular Surgery Procedure Note NAME: Ramona Oconnor BILLING #: [id number] MR #: [id number] : 1980 DATE OF PROCEDURE: 03/11/2019 SURGEON: Qasim Pederson MD HAND BENDER: Man Jeronimo PA-C (ARLYN was required to help with positioning, prepping and d raping, exposure of vessels, vascular anastomosis and closure). PREOPERATIVE DIAGNOSIS: End stage renal disease POSTOPERATIVE DIAGNOSIS: Same PROCEDURES: Creation of an arteriovenous anastomosis with left brachiobasliic arteriovenous fistula ANESTHESIA: Regional block and Moderate sedation SPECIMEN: None ESTIMATED BLOOD LOSS: Less Than 10 ml (Minimal) BLOOD ADMINISTERED: None COMPLICATIONS: None CONDITION: Stable INDICATIONS: This is a 39 y.o. female patient who has been diagnosed with end stage renal d isease. The patient will require a new arteriovenous fistula creation for hemodialysis acces s. The patient recently underwent an upper extremity venous duplex ultrasound which revealed suitable anatomy for an arteriovenous fistula creation. The patient also understands that it will take approximately six weeks for an arteriovenous fistula to mature following its cr eation before it can be accessed for hemodialysis. The patient has been informed that the be nefit of this procedure is to create an access site for hemodialysis. The patient also under stands the risks and complications of this procedure which include hematoma, arterial steal syndrome, arm ischemia, infection, nerve injury, venous thrombosis, pulmonary embolism and a rteriovenous fistula thrombosis. She agrees with the planned procedure of an arteriovenous f istula creation. PROCEDURE IN DETAIL: The patient was taken to the operating room and placed on the table in the supine position. Appropriate time out was performed in which all nursing and surgical p ersonnel concurred with the surgical plan. The patient was given Regional block and consciou s sedation anesthesia and maintained throughout the entire procedure. The patient's left arm was prepped sterilely and draped in a standard fashion. A skin scalpel was used to make a s kin incision in the proximal medial forearm to identify the basilic vein for a possible brac hial artery to basilic vein forearm loop graft. The basilic vein is too small in the proxima l forearm. A transverse incision was made in the antecubital fossa. Dissection was carried d own using electrocautery. We identified the basilic vein which was isolated circumferentiall y and encircled with a vessel loop. We also identified the adjacent brachial artery which wa s dissected circumferentially and encircled with a vessel loop. The basilic vein was next di vided in half and the distal segment of the vein was ligated using a 2-0 silk suture. The pr oximal segment of the basilic vein was flushed with a heparinized saline solution. Next we p laced proximal and distal vascular clamps in the brachial artery. A vertical arteriotomy was performed using a #11 blade. The arteriotomy was next extended using a Mendoza scissor. The b asilic vein was then connected to the adjacent brachial artery in an end-to-side fashion usi ng a 7-0 prolene suture. Appropriate flushing was also performed at the completion of the va scular anastomosis. An end-to-side brachiobasilic AV fistula was performed without difficult y. Excellent thrills were noted in the arteriovenous fistula at the completion of the anasto motic reconstruction. At the end of the arteriovenous fistula reconstruction, the patient carrillo s a good radial and ulner flow as evidenced by strong palpable pulses. The wound was next ir rigated, and the subcutaneous tissues were closed using #3-0 Vicryl sutures, and skin closur e was done using #4-0 Monocryl sutures. Skin glue and standard gauze dressing was applied o mamta the incision site. The patient remained hemodynamically stable throughout the entire ope ration. The patient suffered no complications, and the patient was taken to the recovery [facility] in stable condition. I was present throughout [...] + | , SERUM, | Routin | 03/11/2019 | | Results for this | | QUAL | e | 11:04 AM | | procedure are in the | | | | PDT | | results section. | + +--------+ + + + | BASIC METABOLIC | Routin | 03/11/2019 | | Results for this | | PANEL | e | 11:04 AM | | procedure are in the | | | | PDT | | results section. | + +--------+ + + + documented in this encounter Results , Serum, Qual (03/11/2019 11:04 AM PDT) + + + + + + | Component | Value | Ref Range | Performed | Pathologist | | | | | At | Signature | + + + + + + | HCG | NEGATIVEComment: Testing | | EXTERNAL | | | QUALITATIVE | performed at [facility];[id number] | | LAB | | | | [address];[place] | | | | | | [address] | | | | + + + [...] + +---------+ + + Basic Metabolic Panel (03/11/2019 11:04 AM PDT) + + + + + + | Component | Value | Ref Range | Performed | Pathologist | | | | | At | Signature | + + + + + + | Na | 141 | 135 - 145 | EXTERNAL | | | | | mmol/L | LAB | | + + + + + + | K | 5.3 (H) | 3.5 - 4.9 | EXTERNAL | | | | | mmol/L | LAB | | + + + + + + | Cl | 101 | 99 - 109 mmol/L | EXTERNAL | | | | | | LAB | | + + + + + + | CO2 | 33 (H) | 23 - 32 mmol/L | EXTERNAL | | | | | | LAB | | + + + + + + | Anion Gap | 12 | 5 - 20 mmol/L | EXTERNAL | | | | | | LAB | | + + + + + + | Glucose, | 83 | 65 - 99 mg/dL | EXTERNAL | | | Fasting | | | LAB | | + + + + + + | BUN | 21 | 8 - 25 mg/dL | EXTERNAL | | | | | | LAB | | + + + + + + | Creatinine | 6.23 (H) | 0.50 - 1.00 | EXTERNAL [...] Estimated | 7 (L)Comment: GFR <60: | mL/min/1.73m2 | EXTERNAL [...] | | | | | performed at [facility];[address] | | | | | | [facility];[place], [place] | | | | | | [address] | | | | + + + [...]
--- OUTSIDE RECORDS SUMMARY | ~2020-05-11 | XMS | Encounter Summary ---
Demographics + + + | Address | [address] | | | [place] [address] | + + + | Home Phone | | + + + | Preferred Language | Unknown | + + + | Marital Status | | + + + | Samaritan Affiliation | Unknown | + + + [...] [place], [place] | | | | | [address] | | + + + + + | Lydia Palm | ECON | [place], [place] | | | | | [address] | | + + + + + | melinda METZ" | ECON | [place], [place] | | | [place] | | [address] | | + + + + + | Jose C Oconnor | ECON | [address] | | | | | [place] | | | | | [address] | | + + + + + Care Team Providers + +------+ + | Care Fiberglass Boat Finisher Name | Role | Phone | + [...] + + | 08/10/ | Clinical | [facility] | Nidhi Whitaker, | ESRD on dialysis | | 2019 | Support | VASCULAR SURGERY | RN | (HCC) (Primary Dx) | | | | [address] | | | | | | [place] | | | | | | [address] | | | | | | [phone] | | | +--------+ + + + [...] documented as of this encounter Progress Notes Nidhi Whitaker RN - 08/10/2019 1:00 PM PDTPatient presented [...] wound care on Jak[facility] and [facility] in 2 weeks. She will call [facility] [...]
--- OUTSIDE RECORDS SUMMARY | ~2020-05-11 | XMS | Encounter Summary ---
Demographics + + + | Address | [address] | | | [place] [address] | + + + | Home Phone | | + + + | Preferred Language | Unknown | + + + | Marital Status | | + + + | Spiritism Affiliation | Unknown | + + + | Race | Unknown | + + + | Ethnic Group | Unknown | + + + Author + + + | Author | [facility] | | | and [place] | + + + | Organization | [facility] | | | and [place] | + + + | Address | Unknown | + + + | Phone | Unavailable | + + + Support + + + + + | Name | Relationship | Address | Phone | + + + + + | Lyubov Smalls | ECON | [place], [place] | | | | | [address] | | + + + + + | Lydia Palm | ECON | [place], [place] | | | | | [address] | | + + + + + | melinda METZ" | ECON | [place], [place] | | | reba | | [address] | | + + + + + | Jose C Oconnor | ECON | [place] | | | | | [place] | | | | | [address] | | + + + + + Care Team Providers + +------+ + | Care Administrative Manager Name | Role | Phone | + +------+ + | No, Physician | PCP | Unavailable | + +------+ + Reason for Visit + + + | Reason | Comments | + + + | Vascular Access | Bleeeding from port that was placed today at day surgery. | | Problem | | + + + Encounter Details +--------+ + + + + | Date | Type | Department | Care Team | Description | +--------+ + + + + | 11/05/ | Emergency | [facility] | Kaitlynn Christen, DO [address] | Hyperkalemia | | 2019 | | MEDICAL CENTER | [address] | (Primary Dx); | | | | EMERGENCY CENTER | [place] [address] | Bleeding | | | | [address] | [phone] | | | | | [place], [place] | | | | | | [address] | | | | | | [phone] | | | +--------+ + + + [...] + + + | Blood Pressure | 129/71 | 11/05/2019 8:35 PM | | | | | PST | | + + + + + | Pulse | 69 | 11/05/2019 8:35 PM | | | | | PST | | + + + + + | Temperature | 36.6 C (97.8 F) | 11/05/2019 5:30 PM | | | | | PST | | + + + + + | Respiratory Rate | 16 | 11/05/2019 8:24 PM | | | | | PST | | + + + + + | Oxygen Saturation | 97% | 11/05/2019 8:35 PM | | | | | PST | | + + + + + | Inhaled Oxygen | - | - | | | Concentration | | | | + + + + + | Weight | 88.5 kg (195 lb 1.7 | 11/05/2019 5:30 PM | | | | oz) | PST | | + + + + + | Height | 157.5 cm (5' 2") | 11/05/2019 5:30 PM | | | | | PST | | + + + + + | Body Mass Index | 35.69 | 11/05/2019 5:30 PM | | | | | PST [...] as of this encounter Discharge Instructions Instructions Christen Calderón DO - 11/05/2019Place a bag of saline overlying the port area at night time to help placing pressure over this area. It is important that you follow a low potassi um diet. Go to dialysis as scheduled tomorrow morning. AttachmentsThe following attachments cannot be sent through Care Everywhere.Hyperkalemia, D ischarge Instructions (Singaporean)documented in this encounter Medications at Time of [...] documented as of this encounter ED Notes Christen Calderón DO - 11/05/2019 6:32 PM PSTFormatting of this note might be different from the or iginal. [facility] History of Present Illness Patient Identification Ramona Oconnor is a 39 y.o. female. Patient information was obtained from patient History/Exam limitations: none. Patient presented to the Emergency Department by: Car Chief Complaint Chief Complaint Patient presents with Vascular Access Problem Bleeeding from port that was placed today at day surgery. Patient is a 39 y.o. female who presents to the ED with a chief complaint of bleeding from the port placed today by IR. Patient states they observed her after her procedure for shor t time since it was bleeding. However they discharged her home. Her mother states they wer e out at a restaurant when it started bleeding more and she was worried about going home wit h it. Patient states she has had pain ever since the port was changed in that region as wel l. Patient is end-stage renal disease on dialysis and was just dialyzed yesterday. Denies any nausea, vomiting, fever or chills. No chest pain, difficulty breathing, abdominal pain, problems with urination or bowel movements. Patient's crew foreman is Dr. Chi. PCP:No Physician on file Past Medical History: Diagnosis Date Acid reflux [...] 10/25/15 showed normal sized kidneys. 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 GERD (gastroesophageal reflux disease) Hypercalcemia 09/07/2017 Hyperphosphatemia [...] STENTS ; Surgeon: Qasim Pederson MD; Location: [facility] MAIN OR AV FISTULA REPAIR Left 09/03/2019 Procedure: Resection of left arm AV graft with wound vac placement; Surgeon: Lexi Posada; Location: [facility] MAIN OR CATHETER REMOVAL 02/04/2019 Procedure: DIALYSIS CATHETER - REMOVAL; Surgeon: Qasim Pederson MD; Location: [facility] MAIN OR ; Service: Vascular; Laterality: N/A; Infected PD catheter removal DEBRIDEMENT Left 07/08/2019 Procedure: LEFT AXILLA WOUND DEBRIDEMENT, WASHOUT AND POSSIBLE WOUND VAC PLACEMENT; Surge on: Qasim Pederson MD; Location: [facility] MAIN OR OTHER SURGICAL HISTORY Left 03/11/2019 AV FISTULA PLACEMENT - Procedure: AV FISTULA; Surgeon: Qasim Pederson MD; Location: [facility]; Service: Vascular; Laterality: Left; OTHER SURGICAL HISTORY HARDWARE PRESENT OTHER SURGICAL HISTORY Right 01/2019 chest wall OTHER SURGICAL HISTORY Left 05/06/2019 AV GRAFT CREATION - Procedure: AV GRAFT CREATION; Surgeon: Qasim Pederson MD; Location: [facility] MAIN OR; Service: Vascular; Laterality: Left; bovine carotid graft OTHER SURGICAL HISTORY Left 05/26/2019 WOUND VAC PLACEMENT/REPLACEMENT - Procedure: WOUND VAC - PLACEMENT - REPLACEMENT; Surgeon : Qasim Pederson MD; Location: [facility] MAIN OR; Service: Vascular; Laterality: Left; PERITONEAL CATHETER PLACEMENT/REMOVAL 10/28/2015 Procedure: LAPAROSCOPIC - PERITONEAL DIALYSIS CATH INSERTION; Surgeon: Mundo Ramos MD; Lo cation: [facility] MAIN OR; Service: Vascular; Laterality: N/A; UPPER GASTROINTESTINAL ENDOSCOPY 09/10/2017 Procedure: ESOPHAGOGASTRODUODENOSCOPY; Surgeon: Beena Peters MD; Location: [facility]; Service: Gastroenterology; Laterality: N/A; WISDOM TOOTH EXTRACTION Prior to Admission medications Medication Sig Start Date End Date Taking? Authorizing Provider omeprazole (PRILOSEC) 20 mg capsule Take 20 mg by mouth every morning (before breakfast). Yes Historical Provider, ondansetron (ZOFRAN) 4 mg tablet Take 4 mg by mouth every 6 hours as needed. 08/23/19 His torical Provider, oxyCODONE (ROXICODONE) 5 mg tablet Take 0.5-2 tablets by mouth every 8 hours as needed (sev ere pain). Patient not taking: Reported on 10/12/2019 09/08/19 Herberth Escoto MD oxyCODONE-acetaminophen (PERCOCET) 5-325 mg per tablet Take 1 tablet by mouth every 4 hours as needed for Pain. Patient not taking: Reported on 10/12/2019 09/14/19 Man Jeronimo PA-C promethazine (PHENERGAN) 25 mg tablet Take 25 mg by mouth every 6 (six) hours as needed for Nausea. Yes Historical Provider, senna (SENOKOT) 8.6 mg tablet Take 1 tablet by mouth Twice daily as needed for Constipatio n. 09/08/19 Herberth Escoto MD sevelamer carbonate (RENVELA) 800 mg tablet Take 2 tablets by mouth 2 times daily (with joselito akfast & lunch). 09/08/19 Yes Herberth Escoto MD sevelamer carbonate (RENVELA) 800 mg tablet Take 3 tablets by mouth Daily (with dinner). Yes Herberth Escoto MD Allergies Allergen Reactions Adhesive & Tape Itching Social History Socioeconomic History Marital status: Spouse name: Not on file Number of children: 0 Years of education: Not on file Highest education level: Not on file Occupational History Not on file Social Needs Financial resource strain: Not on file Food insecurity: Worry: Not on file Inability: Not on file Transportation needs: Medical: Not on file Non-medical: Not on file Tobacco Use Smoking status: Former Smoker Packs/day: 0.25 Years: 10.00 Pack years: 2.50 Smokeless tobacco: Never Used Substance and Sexual Activity Alcohol use: Yes Comment: Alcoholic Drinks/day: occ Drug use: Yes Types: Marijuana Comment: Drug use: Yes. uses oil, 3-4x daily via inhalation. Sexual activity: Not on file Lifestyle Physical activity: Days per week: Not on file Minutes per session: Not on file Stress: Not on file Relationships Social connections: Talks on phone: Not on file Gets together: Not on file Attends scientology service: Not on file Active member of club or organization: Not on file Attends meetings of clubs or organizations: Not on file Relationship status: Not on file Intimate partner violence: Fear of current or ex partner: Not on file Emotionally abused: Not on file Physically abused: Not on file Forced sexual activity: Not on file Other Topics Concern Not on file Social History Narrative She lives at home and is a former smoker. Family History Problem Relation Age of Onset Cancer Maternal Grandmother breast ca Kidney disease Paternal Grandfather renal falure Other (see comment) Mother Other (see comments) - healthy Diabetes Father Breast cancer Maternal Grandmother Malig hypertherm Neg Hx Review of Systems Constitutional: Negative for: fever, chills Eyes: Negative for: Visual changes Nose: Negative for: rhinorrhea/congestion Throat: Negative for: sore throat Cardiovascular Negative for: chest pain Respiratory: Negative for: shortness of breath, cough Gastrointestinal: Negative for: abdominal pain, nausea/vomiting, problems with bowel movem ents Genitourinary: Negative for: urinary problems Musculoskeletal: Negative for: myalgias and arthralgias Skin: Positive for bleeding from the port site Neuro Negative for: confusion, trouble walking/talking Psych: Negative for: abnormal behaviors Endocrine/Heme/Lymph: Negative for: swollen lymph nodes, easy bruising Physical Exam Temp: 36.6 C (97.8 F) Pulse: 78 Resp: 18 BP: 139/64 SpO2: 98 % Vitals interpretation: Unremarkable General: Alert, in no apparent distress Head: Normocephalic, atraumatic Eyes: Normal inspection, pupils equal and round, non-icteric ENT: External ears, nose normal Pharynx normal Neck: Normal inspection Supple No lymphadenopathy No meningismus Cardiovascular: Rate and rhythm normal No murmurs Respiratory: Breath sounds clear bilaterally Abdomen: Soft, non-tender, non-distended No guarding or rebound Genitourinary: Deferred Rectal exam: Deferred Back: Normal inspection Skin: Tunneled dialysis catheter noted in the right upper chest with overlying dressings. Partially saturated with blood. Scant amount of oozing noted. Extremities: No peripheral edema Neuro: No gross motor/sensory deficit Normal gait Medical Decision Making and Emergency Department Course ED Department Course Time 1831: Pt seen and examined. Pt presenting with concern for bleeding from the port site . Upon my exam, pt has a very small amount of oozing noted initially. The bandage was compl etely changed out using sterile technique and the area was cleaned. No active bleeding was noted from the site. My suspicion is there was likely a small superficial vein that blood i nformed possible hematoma underlying the skin. Patient only has the bleeding if she coughs or moves so I suspect some of this blood is slowly evacuating from the hematoma. We will ge t basic lab work including a CBC and BMP. 19:22. Patient's lab work showed hyperkalemia with a potassium of 5.7. EKG was ordered an d does not show any signs of peaked T waves. I discussed the results with patient's nephrol ogist Dr. Chi who states patient should maintain a low potassium diet and should follow-up with dialysis tomorrow as scheduled. No need to treat the hyperkalemia at this time. Stat es it may help if we give her a bag of IV fluids that she can place over her port site in th e evening to help with putting pressure over the area. I discussed all ED results and my c linical impression with the patient. Patient is ready for discharge. I advised patient to fo llow up with a PCP and we discussed the emergent signs and symptoms that would necessitate a return to ED. The patient understands and agrees with the plan. All questions and concerns addressed to the best of my ability. Will discharge home with a bag of IV fluid. The patien t agrees to return to the ED immediately if any problems or concerns. Medications ordered during this visit: Medications HYDROcodone-acetaminophen (NORCO) 5-325 mg per tablet 1 tablet (1 tablet Oral Given 2021) Records Reviewed Old medical records. Nursing notes. Laboratory Evaluation Results Procedure Component Value Ref Range Date/Time CBC with Differential [[id number]] (Abnormal) Collected: 11/05/191905 Order Status: Completed Specimen: Blood Updated: 11/05/191943 WBC 11.11 3.80 - 11.00 K/uL RBC 4.51 3.70 - 5.10 M/uL Hemoglobin 12.2 11.3 - 15.5 g/dL Hematocrit 37.8 34.0 - 46.0 % MCV 83.8 80.0 - 100.0 fl MCH 27.0 27.0 - 34.0 pg MCHC 32.2 32.0 - 35.5 g/dL RDW-SD 45.9 37 - 53 fl Platelet Count 275 150 - 400 K/uL MPV 8.7 fl Diff Type AUTOMATED % Neutrophils 84.80 % % Lymphocytes 10.96 % Monocyte % 3.26 % Eosinophils % 0.62 % Basophils % 0.36 % Neutrophils, Absolute 9.43 1.90 - 7.40 K/uL Absolute Lymphocytes 1.22 1.00 - 3.90 K/uL Absolute Monocytes 0.36 0.00 - 0.80 K/uL Eosinophils, Absolute 0.07 0.00 - 0.50 K/uL Basophils, Absolute 0.04 0.00 - 0.10 K/uL Basic Metabolic Panel [[id number]] (Abnormal) Collected: 11/05/191905 Order Status: Completed Specimen: Blood Updated: 11/05/191932 Na 134 135 - 145 mmol/L K 5.7 3.5 - 4.9 mmol/L Cl 97 99 - 109 mmol/L CO2 27 23 - 32 mmol/L Anion Gap 16 5 - 20 mmol/L Glucose 116 65 - 99 mg/dL BUN 46 8 - 25 mg/dL Creatinine 12.88 0.50 - 1.00 mg/dL BUN/Creatinine Ratio 4 Calcium 8.8 8.5 - 10.5 mg/dL Estimated GFR 3 >60 mL/min/1.73m2 Radiology and EKG Evaluation Imaging Results None EKG done 11/06/19 at 1953 shows normal sinus rhythm with a rate of 68. Normal axis. No acut e ST elevation or depression noted. Procedures Disposition: Final diagnoses: Hyperkalemia Bleeding ED Disposition ED Disposition Condition Comment Discharge Stable Discharge Medications: ED Prescriptions None Follow-up Information Your Primary Care Physician. Schedule an appointment as soon as possible for a visit in 3 days. Go to [facility]. Specialty: Emergency Medicine Why: If symptoms worsen Contact information: [address] [facility] [address] Dictation software, [employer], used which may contain error for similar sounding words even af ter review. Personal communication requested for any clarification. DO Christen Cook DO 11/06/19 0003 Trenton Yung RN - 11/05 5:29 PM PSTPt just had a dialysis port placed in the right chest, pt states they left the hospital and it started bleeding. Electronically signed by Trenton Nelson RN at 10/11 5:30 PM PSTdocumented in this encounter Plan of Treatment + +------+--------+ + + | Name | Type | Priori | Associated Diagnoses | Date/Time | | | | ty | | | + +------+--------+ + + | ED INFORMATION | KATIANA | Routin | | 11/05/2019 5:06 PM | | EXCHANGE | | e | | PST | + +------+--------+ + + documented as of this encounter Procedures + +--------+ + + + | Procedure Name | Priori | Date/Time | Associated Diagnosis | Comments | | | ty | | | | + +--------+ + + + | ECG 12 LEAD | JONG | 11/05/2019 | | Results for this | | | | 7:53 PM | | procedure are in the | | | | PST | | results section. | + +--------+ + + + | CBC WITH | STAT | 11/05/2019 | | Results for this | | DIFFERENTIAL | | 7:06 PM | | procedure are in the | | | | PST | | results section. | + +--------+ + + + | BASIC METABOLIC | STAT | 11/05/2019 | | Results for this | | PANEL | | 7:06 PM | | procedure are in the | | | | PST | | results section. | + +--------+ + + + | ED INFORMATION | Routin | 11/05/2019 | | | | EXCHANGE | e | 5:06 PM | | | | | | PST | | | + +--------+ + + + +---+--------+ | | | | | Proced | | | ure | | | Note - | | | Endy, | | | Lab In | | | | | | Hlseve | | | n - | | | 11/05/ | | | 2018 | | | 5:07 | | | PM PST | | | | | | Format [...] | | | 9 | | | 17:06? | | | GOATSE | | | N, | | | RAMONA | | | C?MRN: | | | | | | [id number] | | | [id number] | | | riteri | | | [...] | | | St. | | | [place] | | | y | | | [...] | | | Center | | | 8 0 | | | [facility] [place] [facility] | [facility] | | | [facility] | | | al 6 0 | | | Total | | | 15 0 | | | Note: | | [...] | | out | | | of 15 | | | in the | | [...] | | | int | | | Dec | | | 27, | | | 2019 | | | [facility] | | | | | | [facility] | | | al | | | [facility] | | | [place] | | | [place] | | | Emerge | | | ncy | | | Oct | | | 25, | | | 2019 | | | [facility] | | | | | | Region | | | al | | | [facility] | | | [place] | | | [place] | | | Emerge | | | ncy | | | Arm | | | Pain | | | | | | Infect | | | ion | | | follow | | | ing a | | | proced | | | ure, | | | unspec | | | ified, | | | init | | | | | | Infect | | | /inflm | | | react | | | d/t | | | oth | | | cardi/ | | | vasc | | | dev/im | | | plnt/g | | | rft, | | | init | | | Oct | | | 13, | | | 2019 | | | [facility] [place] | | | y H. | | [...] | | | St. | | | [place] | | | y H. | | [...] | | | St. | | | [place] | | | y H. | | [...] | | | /notif | | | [id number] | | | 5324-6 | | | [id number] | | | [id number] | | | [id number] | | | [id number] | | | 6d | | | PLEASE | | | [...] | +---+--------+ documented in this encounter Results ECG 12 lead (11/05/2019 7:53 PM PST) + + + + + + | Component | Value | Ref Range | Performed | Pathologist | | | | | At | Signature | + + + + + + | VENTRICULAR | 68 | BPM | [facility] | | | RATE EKG | | | | | + + + + + + | ATRIAL RATE | 68 | BPM | [facility] | | + + + + + + | P-R | 146 | ms | [facility] | | | INTERVAL | | | | | + + + + + + | QRS | 80 | ms | [facility] | | | DURATION | | | | | + + + + + + | Q-T | 406 | ms | [facility] | | | INTERVAL | | | | | + + + + + + | Q-T | 431 | ms | [facility] | | | INTERVAL | | | | | | (CORRECTED) | | | | | + + + + + + | P WAVE AXIS | 41 | degrees | [facility] | | + + + + + + | QRS AXIS | 144 | degrees | [facility] | | + + + + + + | T AXIS | 87 | degrees | [facility] | | + + + + + + | INTERPRETAT | Normal sinus rhythmLow | | [facility] | | | ION TEXT | voltage QRSLeft | | | | | | posterior fascicular | | | | | | blockAbnormal ECGWhen | | | | | | compared with ECG of | | | | | | 05-SEP-2019 00:56,Vent. | | | | | | rate has decreased BY | | | | | | 44 BPMLeft posterior | | | | | | fascicular block is now | | | | | | PresentThis ECG contains | | | | | [...] (500), | | | | | | film editor supervisor Yahir Coker | | | | | | (142) on 11/06/2019 | | | | | | 5:09:12 AM | | | | + + [...] + +---------+ + + Basic Metabolic Panel (11/05/2019 7:06 PM PST) + + + + + + | Component | Value | Ref Range | Performed | Pathologist | | | | | At | Signature | + + + + + + | Na | 134 (L) | 135 - 145 | [facility] [...] + + + + | Glucose | 116 (H) | 65 - 99 mg/dL | [facility] | | | | | | LABORATORY | | + + + + + + | BUN | 46 (H) | 8 - 25 mg/dL | [facility] | | | | | | LABORATORY | | + + + + + + | Creatinine | 12.88 (H) | 0.50 - 1.00 | [facility] | | | | | mg/dL | LABORATORY | | + + + + + + | BUN/Creatin | 4 | | [facility] | | | ine Ratio | | | LABORATORY | | + + + + + + | Calcium | 8.8 | 8.5 - 10.5 | [facility] | | | | | mg/dL | LABORATORY | | + + + + + + | Estimated | 3 (L)Comment: GFR <60: | >60 | [facility] | | | GFR | CHRONIC KIDNEY [...] performed at [facility];[address] | | | | | | [facility];[place], [place] | | | | | | [address] | | | | + + + + + + + + | Specimen | + + | Blood | + + + + + + + | Performing | Address | City/State/Zipcode | Phone Number | | Organization | | | | + + + + + | [facility] | [address] | [place] [address] | [phone] | + + + + + CBC with Differential (11/05/2019 7:06 PM PST) + + + + + + | Component | Value | Ref Range | Performed | Pathologist | | | | | At | Signature | + + + + + + | WBC | 11.11 (H) | 3.80 - 11.00 | [facility] | | | | | K/uL | LABORATORY | | + + + + + + | RBC | 4.51 | 3.70 - 5.10 | [facility] | | | | | M/uL | LABORATORY | | + + + + + + | Hemoglobin | 12.2 | 11.3 - 15.5 | [facility] | | | | | g/dL | LABORATORY | | + + + + + + | Hematocrit | 37.8 | 34.0 - 46.0 % | [facility] | | | | | | LABORATORY | | + + + + + + | MCV | 83.8 | 80.0 - 100.0 fl | [facility] | | | | | | LABORATORY | | + + + + + + | MCH | 27.0 | 27.0 - 34.0 pg | [facility] | | | | | | LABORATORY | | + + + + + + | MCHC | 32.2 | 32.0 - 35.5 | [facility] | | | | | g/dL | LABORATORY | | + + + + + + | RDW-SD | 45.9 | 37 - 53 fl | [facility] | | | | | | LABORATORY | | + + + + + + | Platelet | 275 | 150 - 400 K/uL | [facility] | | | Count | | | LABORATORY | | + + + + + + | MPV | 8.7 | fl | [facility] | | | | | | LABORATORY | | + + + + + + | Diff Type | AUTOMATED | | [facility] | | | | | | LABORATORY | | + + + + + + | % | 84.80 | % | [facility] | | | Neutrophils | | | LABORATORY | | + + + + + + | % | 10.96 | % | [facility] | | | Lymphocytes | | | LABORATORY | | + + + + + + | Monocyte % | 3.26 | % | [facility] | | | | | | LABORATORY | | + + + + + + | Eosinophils | 0.62 | % | [facility] | | | % | | | LABORATORY | | + + + + + + | Basophils % | 0.36 | % | [facility] | | | | | | LABORATORY | | + + + + + + | Neutrophils | 9.43 (H) | 1.90 - 7.40 | [facility] | | | , Absolute | | K/uL | LABORATORY | | + + + + + + | Absolute | 1.22 | 1.00 - 3.90 | [facility] | | | Lymphocytes | | K/uL | LABORATORY | | + + + + + + | Absolute | 0.36 | 0.00 - 0.80 | [facility] | | | Monocytes | | K/uL | LABORATORY | | + + + + + + | Eosinophils | 0.07 | 0.00 - 0.50 | [facility] | | | , Absolute | | K/uL | LABORATORY | | + + + + + + | Basophils, | 0.04Comment: Testing | 0.00 - 0.10 | [facility] | | | Absolute | performed at [facility];[address] | K/uL | LABORATORY | | | | [address];[place], [place] | | | | | | [address] | | | | + + + + + + + + | Specimen | + + | Blood | + + + + + + + | Performing | Address | City/State/Zipcode | Phone Number | | Organization | | | | + + + + + | [facility] | [address] | [place] [address] | [phone] | + + + + + documented in this encounter Visit Diagnoses + + | Diagnosis | + + | Hyperkalemia - Primary Hyperpotassemia | + + | Bleeding Hemorrhage, unspecified | + + documented in this encounter Administered Medications + +--------+ + +------+------+ | Medication Order | MAR | Action | Dose | Rate | Site | | | Action | Date | | | | + +--------+ + +------+------+ | HYDROcodone-acetaminophen | Given | 11/05/20 | 1 tablet | | | | (NORCO) 5-325 mg per tablet 1 | | 19 8:22 | | | | | tablet 1 tablet, Oral, ONCE, Fri | | PM PST | | | | | 11/05/19 at 2024, For 1 dose | | | | | | + +--------+ + +------+------+ +---+---+ | | | +---+---+ documented in this encounter
--- OUTSIDE RECORDS SUMMARY | ~2020-05-11 | XMS | Encounter Summary ---
Demographics + + + | Address | [address] | | | [place] [address] | + + + | Home Phone | | + + + | Preferred Language | Unknown | + + + | Marital Status | | + + + | Synagogue Affiliation | Unknown | + + + | Race | Unknown | + + + | Ethnic Group | Unknown | + + + Author + + + | Author | [facility] | | | and [place] | + + + | Organization | [facility] | | | and [place] | + + + | Address | Unknown | + + + | Phone | Unavailable | + + + Support + + + + + | Name | Relationship | Address | Phone | + + + + + | Lyubov Smalls | ECON | [place], [place] | | | | | [address] | | + + + + + | Lydia Palm | ECON | [place], [place] | | | | | [address] | | + + + + + | melinda METZ" | ECON | [place], [place] | | | reba | | [address] | | + + + + + | Jose C Oconnor | ECON | [address] | | | | | [place] | | | | | [address] | | + + + + + Care Team Providers + +------+ + | Care Telecommunication Engineer Name | Role | Phone | + +------+ + | No, Physician | PCP | Unavailable | + +------+ + Reason for Visit + + + | Reason | Comments | + + + | Wound Check | | + + + Encounter Details +--------+ + + + + | Date | Type | Department | Care Team | Description | +--------+ + + + + | 07/06/ | Clinical | [facility] | Nidhi Whitaker, | ESRD (end stage | | 2019 | Support | VASCULAR SURGERY | RN | renal disease) on | | | | [address] | | dialysis (HCC) | | | | [address] | | (Primary Dx) | | | | [address] | | | | | | [phone] | | | +--------+ + + + [...] encounter Progress Notes Nidhi Whitaker RN - 07/06/2019 1:30 PM PDTPatient presented to office for left axillar y wound check. Patient reports that wound is healing well. She had a disagreement with her home health nurse regarding her home bound status last so she requested to be disc harged from home health services. Since then her has been helping her with her woun d care. Dressing removed from patient's axillary area, light greenish slough noted on dress ing, wound bed is red and beefy measuring approximately 5 cm by 3 cm with the depth of 3 cm, it appears the AVG is exposed. Dr Pederson and Kylie Alves brought into room to see patient. Per S rj Alves wound is twice the size it was since the last appointment. Dr Pederson confirmed that gardenia carranza's AVG is indeed exposed. Dr Pederson scheduled patient for urgent wound irrigation and debr idement this with wound vac placement. Dr Pederson repacked wound with alcohol swab and dry dressing. Patient instructed to not change dressing unless dressing falls off or is vi sibly soiled. Patient will be scheduled with [facility] once surgery order is received. Since patient is no longer home bound, she will be following up with [facility] out patient wou nd care at [facility] [address]. Patient will call [facility] back if she has any questions or concerns. documented in this encounter Plan of Treatment Not on filedocumented as of this encounter Visit Diagnoses + + | Diagnosis | + + | ESRD (end stage renal disease) on dialysis (HCC) - Primary End stage renal disease | + + documented in this encounter
--- OUTSIDE RECORDS SUMMARY | ~2020-05-11 | XMS | Encounter Summary ---
Demographics + + + | Address | [address] | | | [place] [address] | + + + | Home Phone [...] [place], [place] | | | | | [address] | | + + + + + | Lydia Palm | ECON | [place], [place] | | | | | [address] | | + + + + + | melinda METZ" | ECON | [place], [place] | | | [place]ba | | [address] | | + + + + + | Jose C Oconnor | ECON | [address] | | | | | [place] | | | | | [address] | | + + + + + Care Team Providers + +------+ + | Care Grocery Clerk Selling Name | Role | Phone | + [...] | daily thru | [address] | [place] [address] | | | | | February 23, | [place], [place] | Phone: | | | | | Peritonitis | [address] | [phone] | | | | | Procedures | Phone: | Fax: | | | | | [place] | [phone] | [phone] | | | | | [place], | Fax: | | | | | | [address] [place] | [phone] | | | | | | IV [...] | +--------+ + + + + | 02/22/ | Hospital | [facility] | Unknown, | Peritonitis | | 2019 | Encounter | [facility] | MD Iris Kinney | associated with | | | | [address] | [phone] | peritoneal dialysis, | | | | [place] | | initial encounter | | | | [address] | | (HCC) (Primary Dx) | | | | [phone] | | | +--------+ + + + [...] + + + | Blood Pressure | 136/76 | 02/22/2019 5:52 PM | | | | | PDT | | + + + + + | Pulse | 71 | 02/22/2019 5:52 PM | | | | | PDT | | + + + + + | Temperature | 36.9 C (98.4 F) | 02/22/2019 5:28 PM | | | | | PDT | | + + + + + | Respiratory Rate | 16 | 02/22/2019 5:52 PM | | | | | PDT [...] encounter Progress Notes Brandin Gray RN - 02/22/2019 6:03 PM PDTFormatting of this note might be different fro m the original. Vitals: 02/22/19 1728 02/22/19 1752 BP: 114/79 136/76 Pulse: 79 71 Resp: 15 16 Temp: 36.9 C (98.4 F) TempSrc: Oral Administrations This Visit meropenem (MERREM) 500 mg in sodium chloride 0.9% 50 mL IVPB Admin Date 02/22/2019 Action New Bag Dose 500 mg Rate 50 mL/hr Route Intravenous Administered By Brandin Gray RN Monitored throughout treatment; treatment completed without untoward effects from medicatio n noted. Next visit Vitals: 02/22/19 1728 02/22/19 1752 BP: 114/79 136/76 Pulse: 79 71 Resp: 15 16 Temp: 36.9 C (98.4 F) TempSrc: Oral Administrations This Visit meropenem (MERREM) 500 mg in sodium chloride 0.9% 50 mL IVPB Admin Date 02/22/2019 Action New Bag Dose 500 mg Rate 50 mL/hr Route Intravenous Administered By Brandin Gray RN Monitored throughout treatment; treatment completed without untoward effects from medicatio n noted. Next visit 02/23/19 . Verbalizes understanding of plan of care. VS stable. Discharged ambulatory to home in sta ble condition. Electronically signed by: Brandin Gray RN 02/22/2019 18:04 cBrandin Brennan RN - 02/22/2019 5:23 PM PDTThere we re no vitals filed for this visit. Ramona Oconnor received into room 441 independent ambulation accompanied by States here for merrem infusion. Reports no change in condition, plan of care since last MD visit . Alert, oriented x 4, cooperative. Electronically signed by: Brandin Gray RN 02/22/2019 17:23 documented in this en counter Miscellaneous Notes Addendum Note - Brandin Gray RN - 02/22/2019 7:28 PM PDT Encounter addended by: Brandin Gray RN on: 02/22/2019 19:28 Actions taken: Charge Capture section accepted documented in this encounter Plan of Treatment [...] 500 mg in | New Bag | 02/23/20 | 500 mg | 50 mL/hr | | | sodium chloride 0.9% 50 mL IVPB | | 19 5:24 | | | | | 500 mg, Intravenous, Administer | | PM PDT | | | | | over 60 Minutes, ONCE, Mon | | | | | | | 02/22/19 at 1740, For 1 dose, | | [...]
--- OUTSIDE RECORDS SUMMARY | ~2020-05-11 | XMS | Encounter Summary ---
Demographics + + + | Address | [address] | | | [place] [address] | + + + | Home Phone | | + + + | Preferred Language | Unknown | + + + | Marital Status | | + + + | Congregation Affiliation | Unknown | + + + | Race | Unknown | + + + | Ethnic Group | Unknown | + + + Author + + + | Author | [facility] | | | and [place] | + + + | Organization | [facility] | | | and [place] | + + + | Address | Unknown | + + + | Phone | Unavailable | + + + Support + + + + + | Name | Relationship | Address | Phone | + + + + + | Lyubov Smalls | ECON | [place], [place] | | | | | [address] | | + + + + + | Lydia Palm | ECON | [place], [place] | | | | | [address] | | + + + + + | melinda METZ" | ECON | [place], [place] | | | [place] | | [address] | | + + + + + | Jose C Oconnor | ECON | [address] | | | | | [place] | | | | | [address] | | + + + + + Care Team Providers + +------+ + | Care Security System Engineer Name | Role | Phone | + +------+ + | Eileen RickP | PCP | | + +------+ + Encounter Details +--------+ + + + + | Date | Type | Department | Care Team | Description | +--------+ + + + + | 07/06/ | Orders Only | [facility] | Qasim Pederson MD | ESRD on dialysis | | 2019 | | VASCULAR SURGERY | [address] | ([facility]) (Primary Dx); | | | | [address] | [place], [place] | Wound infection | | | | [place], [place] | [address] | after surgery | | | | [address] | | | | | | [phone] | | | +--------+ + + + [...]
--- OUTSIDE RECORDS SUMMARY | ~2020-05-11 | XMS | Encounter Summary ---
Demographics + + + | Address | [address] | | | [place] [address] | + + + | Home Phone | | + + + | Preferred Language | Unknown | + + + | Marital Status | | + + + | Protestant Affiliation | Unknown | + + + | Race | Unknown | + + + | Ethnic Group | Unknown | + + + Author + + + | Author | [facility] | | | and [place] | + + + | Organization | [facility] | | | and [place] | + + + | Address | Unknown | + + + | Phone | Unavailable | + + + Support + + + + + | Name | Relationship | Address | Phone | + + + + + | Lyubov Smalls | ECON | [place], [place] | | | | | [address] | | + + + + + | Lydia Palm | ECON | [place], [place] | | | | | [address] | | + + + + + | melinda METZ" | ECON | [place], [place] | | | [place] | | [address] | | + + + + + | Jose C Oconnor | ECON | [address] | | | | | [place] | | | | | [address] | | + + + + + Care Team Providers + +------+ + | Care Vp Product Management Name | Role | Phone | + +------+ + | Juan F Whitley DO | PCP | | + +------+ + Encounter Details +--------+ + + + + | Date | Type | Department | Care Team | Description | +--------+ + + + + | 06/13/ | Orders Only | [facility] | Provider, | Infection and | | 2019 | | SYSTEM GENERIC OP | MD X[address] | inflammatory | | | | CONVERSION PO TRINA | Petey LE | reaction due to | | | | [address] | [place] [address] | peritoneal dialysis | | | | [address] | | catheter, initial | | | | [phone] | | encounter (HCC) | +--------+ + [...]
--- OUTSIDE RECORDS SUMMARY | ~2020-05-11 | XMS | Encounter Summary ---
Demographics + + + | Address | [address] | | | [place] [address] | + + + | Home Phone | | + + + | Preferred Language | Unknown | + + + | Marital Status | | + + + | Advent Affiliation | Unknown | + + + [...] [place], [place] | | | | | [address] | | + + + + + | Lydia Palm | ECON | [place], [place] | | | | | [address] | | + + + + + | melinda METZ" | ECON | [place], [place] | | | [place] | | [address] | | + + + + + | Jose C Oconnor | ECON | [address] | | | | | [place] | | | | | [address] | | + + + + + Care Team Providers + +------+ + | Care Delivery Supervisor Name | Role | Phone | [...] + + | 07/22/ | Clinical | [facility] | Nidhi Whitaker, | Surgical wound | | 2019 | Support | VASCULAR SURGERY | RN | dehiscence, | | | | [address] | | subsequent encounter | | | | [address] | | (Primary Dx) | | | | [address] | | | | | | [phone] | | | +--------+ + + + [...] encounter Progress Notes Nidhi Whitaker RN - 07/22/2019 9:00 AM PDTPatient presented to office with her momsuzanne left under arm wound check/ wound vac. Patient is seeing [facility] out patient wound car e 3 times a week for wound vac changes. Report received yesterday that patient had develope d 2 pin size opening next to her suture line, wound care nurse was able to express pus from those openings. Wound vac dressing removed without any difficulty, black foam removed from tunnel in entirety, some bleeding noted. Suture on proximal wound still intact with no dehi scence. Kylie SMILEY brought into room to see patient. Sutures removed without issue, no dehiscence noted. Wound redressed with black foam, this had to be removed due to foam being too big, upon removal, scant amount of yellow slough and blood noted. Cotton swab inserted , no pus noted upon removal, scant bleeding noted. Smaller black foam reinserted, Aquacel s ilver placed on proximal incision line. Wound dressed completely and wound vac replaced and set to 125 mmHg, good seal and suction noted. Patient next wound vac change out will be on Friday. Full report given to Elisha MARTINEZ at [facility] [address], Elisha will update [facility] heide next Friday regarding patient. Report also given to Dr Pederson. Patient to follow up in 2 w eeks on 08/10/2019. d ocumented in this encounter Plan of Treatment Not on filedocumented as of this encounter Visit Diagnoses + + | Diagnosis | + + | Surgical wound dehiscence, subsequent encounter - Primary | + + documented in this encounter
--- OUTSIDE RECORDS SUMMARY | ~2020-05-11 | XMS | Encounter Summary ---
Demographics + + + | Address | [address] | | | [place] [address] | + + + | Home Phone | | + + + | Preferred Language | Unknown | + + + | Marital Status | | + + + | Islam Affiliation | Unknown | + + + [...] [place], [place] | | | | | [address] | | + + + + + | Lydia Palm | ECON | [place], [place] | | | | | [address] | | + + + + + | melinda METZ" | ECON | [place], [place] | | | [place] | | [address] | | + + + + + | Jose C Oconnor | ECON | [address] | | | | | [place] | | | | | [address] | | + + + + + Care Team Providers + +------+ + | Care Contour Grinder Name | Role | Phone | + +------+ + | No, Physician | PCP | Unavailable | + +------+ + Reason for Visit + +--------+ + | Reason | Onset | Comments | | | Date | | + +--------+ + | Rx/Medication Pick | 08/11/ | | | Up | 2019 | | + +--------+ + Encounter Details +--------+ + + + + | Date | Type | Department | Care Team | Description | +--------+ + + + + | 08/11/ | Telephone | [facility] | Nidhi Whitaker, | Rx/Medication Pick | | 2018 | | VASCULAR SURGERY | RN | Up | | | | [address] | | | | | | [place] | | | | | | [address] | | | | | | [phone] | | | +--------+ + + + [...] Telephone Encounter - Nidhi Whitaker RN - 08/11/2019 10:15 AM PDTCalled and left messag e for patient's mom Aquiles at [phone], pain prescription is ready for picking crew supervisor up front. E lectronically signed by Nidhi Whitaker RN at 08/11/2019 10:16 AM PDTdocumented in this en counter Plan of Treatment Not on filedocumented as of this encounter Visit Diagnoses Not on filedocumented in this encounter
--- OUTSIDE RECORDS SUMMARY | ~2020-05-11 | XMS | Encounter Summary ---
Demographics + + + | Address | [address] | | | [place] [address] | + + + | Home Phone | | + + + | Preferred Language | Unknown | + + + | Marital Status | | + + + | Synagogue Affiliation | Unknown | + + + | Race | Unknown | + + + | Ethnic Group | Unknown | + + + Author + + + | Author | [facility] | | | and [place] | + + + | Organization | [facility] | | | and [place] | + + + | Address | Unknown | + + + | Phone | Unavailable | + + + Support + + + + + | Name | Relationship | Address | Phone | + + + + + | Lyubov Smalls | ECON | [place], [place] | | | | | [address] | | + + + + + | Lydia Palm | ECON | [place], [place] | | | | | [address] | | + + + + + | melinda METZ" | ECON | [place], [place] | | | [place] | | [address] | | + + + + + | Jose C Oconnor | ECON | [address] | | | | | [place] | | | | | [address] | | + + + + + Care Team Providers + +------+ + | Care Leaf Sorter Name | Role | Phone | + [...] | | | | | | | ([facility]) | | | | | | [...] + + | 12/16/ | Hospital | [facility] | PoiQasim MD | | | 2020 | [facility] | [address] | | | | | [address]PER[address] | [place], [place] | | | | | [address] | [address] | | | | | [place], [place] | | | | | | [address] | | | | | | [phone] | | | +--------+ + + + [...] cuts, scrapes, or blows. Date Last Reviewed: 11/10/201619997309-8686 [employer]. [address] [place] [address], [place] [address]. All [employer] reserved. This information is not intended [...] service will answer evenings and weekends) 2. [facility] Anesthesia 24-hour toll-free call line: [phone] (follow instructions careful ly if forwarded to [...] mg by mouth | | 0 | 10//20 | | | (ZOFRAN) 4 mg tablet [...] of this encounter Progress Notes Ibeth Sanchez, MICHELLE - 12/16/2019 4:58 PM PSTWhat to Expect [...] CV: No peripheral edema, rate regular SKIN: [place], warm, dry without rash/lesion MS: ROM not [...] Mcfadden PA-C - 11/23/2019 1:00 PM PST [facility] V[facility] Surgery [facility] [address] [place] [address] History and Physical Examination REASON FOR EVALUATION / CHIEF COMPLAINT: Vascular Surgery follow up visit to discuss n ew access creation HISTORY OF PRESENT ILLNESS: The patient presents today for a Vascular Surgery follow up visit. She is well known to our service. The patient is39 y.o.femalewith significant past medical history of HTN and ESRDwho presented to [facility] ED with fever and chills with concern for infection of left arm AV graft. She initially had the left arm AV graft created using bovine carotid artery in [place] . The operation was complicated by [...] 08/26 patient was emerg ently transferred to [facility] for severe bleeding from left [...] 10/25/15 showed normal sized kidneys. 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 Primary blindstitch lining feller GERD (gastroesophageal reflux disease) Hypercalcemia 09/07/2017 Hyperphosphatemia [...] STENTS ; Surgeon: Qasim Pederson MD; Location: [facility] MAIN OR AV FISTULA REPAIR Left 09/03/2019 Procedure: Resection of left arm AV graft with wound vac placement; Surgeon: Lexi Posada; Location: [facility] MAIN OR CATHETER REMOVAL 02/04/2019 Procedure: DIALYSIS CATHETER - REMOVAL; Surgeon: Qasim Pederson MD; Location: [facility] MAIN OR ; Service: Vascular; Laterality: N/A; Infected PD catheter removal DEBRIDEMENT Left 07/08/2019 Procedure: LEFT AXILLA WOUND DEBRIDEMENT, WASHOUT AND POSSIBLE WOUND VAC PLACEMENT; Surge on: Qasim Pederson MD; Location: [facility] MAIN OR OTHER SURGICAL HISTORY Left 03/11/2019 AV FISTULA PLACEMENT - Procedure: AV FISTULA; Surgeon: Qasim Pederson MD; [facility]; Service: Vascular; Laterality: Left; OTHER SURGICAL HISTORY HARDWARE PRESENT OTHER SURGICAL HISTORY Right 01/2019 chest wall OTHER SURGICAL HISTORY Left 05/06/2019 AV GRAFT CREATION - Procedure: AV GRAFT CREATION; Surgeon: Qasim Pederson MD; Location: [facility] MAIN OR; Service: Vascular; Laterality: Left; bovine carotid graft OTHER SURGICAL HISTORY Left 05/26/2019 WOUND VAC PLACEMENT/REPLACEMENT - Procedure: WOUND VAC - PLACEMENT - REPLACEMENT; Surgeon : Qasim Pederson MD; Location: [facility] MAIN OR; Service: Vascular; Laterality: Left; PERITONEAL CATHETER PLACEMENT/REMOVAL 10/28/2015 Procedure: LAPAROSCOPIC - PERITONEAL DIALYSIS CATH INSERTION; Surgeon: Mundo Ramos MD; Lo cation: [facility] MAIN OR; Service: Vascular; Laterality: N/A; UPPER GASTROINTESTINAL ENDOSCOPY 09/10/2017 Procedure: ESOPHAGOGASTRODUODENOSCOPY; Surgeon: Beena Peters MD; Location: [facility] ENDOSCOP Y; Service: Gastroenterology; Laterality: N/A; [...] CV: No peripheral edema, rate regular SKIN: [place], warm, dry without rash/lesion MS: ROM not [...] access creation. Given her vein calibre, lyudmila yanely discussed options of fistula verus graft creation. [...] Qasim Pederson MD - 12/16/2019 3:24 PM formerly [facility] Service: Vascular Surgery Procedure Note NAME: Ramona Oconnor MR #: [id number] : 1980 DATE OF PROCEDURE: 12/16/2019 SURGEON: Qasim Pederson MD WARDROBE STYLIST: Man Jeronimo PA-C (ARLYN was required to [...] [facility] | | | | performed at [facility] | | LABORATORY | | | | [facility];[place], [place] | | | | | | [address] | | | | + + + + + + + + | Specimen | + + | Blood | + + + + + + + | Performing | Address | City/State/Zipcode | Phone Number | | Organization | | | | + + + + + | [facility] | [address] | [place] [address] | [phone] | + + + + + CBC [...] | | | Absolute | performed at [facility];[address] | [address] | LABORATORY | | | | [address];[place], [place] | | | | | | [address] | | | | + + + + + + + + | Specimen | + + | Blood | + + + + + + + | Performing | Address | City/State/Zipcode | Phone Number | | Organization | | | | + + + + + | [facility] | [address] | [place] [address] | [phone] | + + + + + Basic [...] | | | | | | MDRD IDNH traceable | | | | | | equation.Testing | | | | | | performed at [facility];[address] | | | | | | [facility];[place], [place] | | | | | | [address] | | | | + + + + + + + + | Specimen | + + | Blood | + + + + + + + | Performing | Address | City/State/Zipcode | Phone Number | | Organization | | | | + + + + + | [facility] | [address] | [place] [address] | [phone] | + + + + + documented [...] ONCE PRN, Wheezing, | | | Starting [facility] 12/16/19 at 1500, For | | [...] | | blood glucose < 50, Starting Nnia | | | 12/16/19 at 1500, Give [...] | | | | | | longer, kkndvq-gdh-zvzgo use of | | | | | [...] One week or longer, | | | ahadja-pil-vcvfe use of at least | | | [...]
--- OUTSIDE RECORDS SUMMARY | ~2020-05-11 | XMS | Encounter Summary ---
Demographics + + + | Address | [address] | | | [place] [address] | + + + | Home Phone | | + + + | Preferred Language | Unknown | + + + | Marital Status | | + + + | Catholic Affiliation | Unknown | + + + | Race | Unknown | + + + | Ethnic Group | Unknown | + + + Author + + + | Author | [facility] | | | and [place] | + + + | Organization | [facility] | | | and [place] | + + + | Address | Unknown | + + + | Phone | Unavailable | + + + Support + + + + + | Name | Relationship | Address | Phone | + + + + + | Lyubov Smalls | ECON | [place], [place] | | | | | [address] | | + + + + + | Lydia Palm | ECON | [place], [place] | | | | | [address] | | + + + + + | melinda METZ" | ECON | [place], [place] | | | [place] | | [address] | | + + + + + | Jose C Oconnor | ECON | [place] | | | | | [place] | | | | | [address] | | + + + + + Care Team Providers + +------+ + | Care Salon Coordinator Name | Role | Phone | [...] | daily thru | [address] | [place] [address] | | | | | February 23, | [place], [place] | Phone: | | | | | Peritonitis | [address] | [phone] | | | | | Procedures | Phone: | Fax: | | | | | [place] | [phone] | [phone] | | | | | MEROPENEM, | Fax: | | | | | | [address] [place] | [phone] | | | | | | IV [...] | +--------+ + + + + | 02/20/ | Hospital | [facility] | Unknown, | Peritonitis | | 2019 | Encounter | [facility] | MD Iris Kinney | associated with | | | | [address] | [phone] | peritoneal dialysis, | | | | [place] | | initial encounter | | | | [phone] | | (HCC) (Primary Dx) | | | | [phone] | | | +--------+ + + + [...] + + + | Blood Pressure | 110/70 | 02/20/2019 6:11 PM | | | | | PDT | | + + + + + | Pulse | 72 | 02/20/2019 6:11 PM | | | | | PDT | | + + + + + | Temperature | 36.3 C (97.3 F) | 02/20/2019 5:26 PM | | | | | PDT | | + + + + + | Respiratory Rate | 16 | 02/20/2019 6:11 PM | | | | | PDT | | + + + + + | Oxygen Saturation | 99% | 02/20/2019 5:26 PM | | | | | PDT [...] encounter Progress Notes Gifty Diaz RN - 02/20/2019 6:14 PM PDTFormatting of this note might be diffe rent from the original. Vitals: 02/20/19 1726 02/20/19 1811 BP: 119/69 110/70 Pulse: 72 72 Resp: 16 16 Temp: 36.3 C (97.3 F) TempSrc: Oral SpO2: 99% Administrations This Visit meropenem (MERREM) 500 mg in sodium chloride 0.9% 50 mL IVPB Admin Date 02/20/2019 Action New Bag Dose 500 mg Rate 50 mL/hr Route Intravenous Administered By Gifty Diaz RN Monitored throughout treatment; treatment completed without untoward effects from medicatio n noted. Next visit tomorrow 1730. Verbalizes understanding of plan of care. VS stable. Disc harged ambulatory with spousse to home in stable condition. Electronically signed by: Gifty Diaz RN 02/20/2019 18:14 ifty Diaz RN - 019 5:20 PM PDT Vitals: 02/20/19 1726 BP: 119/69 Pulse: 72 Resp: 16 Temp: 36.3 C (97.3 F) Ramona Oconnor received into room 442, independent ambulation accompanied by spouse. State s here for meropenem infusion. Reports no change in condition, plan of care since last MD floyd sit. Alert, oriented x 4, cooperative. Electronically signed by: Gifty Diaz RN 02/20/2019 17:30 documented in this encounter Plan of Treatment [...] 500 mg in | New Bag | 02/21/20 | 500 mg | 50 mL/hr | | | sodium chloride 0.9% 50 mL IVPB | | 19 5:36 | | | | | 500 mg, Intravenous, Administer | | PM PDT | | | | | over 60 Minutes, ONCE, Sat | | | | | | | 02/20/19 at 1740, For 1 dose, | | [...]
--- OUTSIDE RECORDS SUMMARY | ~2020-05-11 | XMS | Encounter Summary ---
Demographics + + + | Address | [address] | | | [place] [address] | + + + | Home Phone [...] | + + + + + | Lybuov Smalls | ECON | [place], [place] | | | | | [address] | | + + + + + | Lydia Palm | ECON | [place], [place] | | | | | [address] | | + + + + + | melinda METZ" | ECON | [place], [place] | | | [place] | | [address] | | + + + + + | Jose C Oconnor | ECON | [address] [place] | | | | | [place] | | | | | [address] | | + + + + + Care Team Providers + +------+ + | Care Superintendent Warehouse Name | Role | Phone | + [...] | daily thru | [address] | [place] [address] | | | | | February 23, | [place], [place] | Phone: | | | | | Peritonitis | [address] | [phone] | | | | | Procedures | Phone: | Fax: | | | | | [place] | [phone] | [phone] | | | | | MEROPENEM, | Fax: | | | | | | [address] [place] | [phone] | | | | | | IV [...] + + | 02/19/ | Hospital | [facility] | Unknown, | Peritonitis | | 2019 | Encounter | [facility] OP [facility] | MD Iris Kinney | associated with | | | | [address] | [phone] | peritoneal dialysis, | | | | [place] | | initial encounter | | | | [phone] | | (HCC) (Primary Dx) | | | | [phone] | | | +--------+ + + + [...] signed by: Gifty Diaz RN 02/19/2019 18:56 ifty Diaz RN - 019 6:15 PM PDTThere [...]
--- OUTSIDE RECORDS SUMMARY | ~2020-05-11 | XMS | Encounter Summary ---
Demographics + + + | Address | [address] | | | [place] [address] | + + + | Home Phone | | + + + | Preferred Language | Unknown | + + + | Marital Status | | + + + | Roman Catholic Affiliation | Unknown | + + + | Race | Unknown | + + + | Ethnic Group | Unknown | + + + Author + + + | Author | [facility] | | | and [place] | + + + | Organization | [facility] | | | and [place] | + + + | Address | Unknown | + + + | Phone | Unavailable | + + + Support + + + + + | Name | Relationship | Address | Phone | + + + + + | Lyubov Smalls | ECON | [place], [place] | | | | | [address] | | + + + + + | Lydia Palm | ECON | [place], [place] | | | | | [address] | | + + + + + | melinda METZ" | ECON | [place], [place] | | | [place] | | [phone] | | + + + + + | Jose C Oconnor | ECON | [place] | | | | | [place] | | | | | [address] | | + + + + + Care Team Providers + +------+ + | Care Dispatcher Relay Name | Role | Phone | + +------+ + | Juan F Whitley DO | PCP | | + +------+ + Encounter Details +--------+ + + + + | Date | Type | Department | Care Team | Description | +--------+ + + + + | 09/06/ | Hospital | [facility] | Alexx Pate | Intractable | | 2017 - | Encounter | [facility] [address] | [address] | abdominal pain; | | | | [address] | [address] | Intractable vomiting | | 09/13/ | | [facility] | [place] [address] | with nausea, | | 2017 | | [address] | [phone] | unspecified vomiting | | | | [phone] | | type; Hemorrhagic | | | | | | ovarian cyst; | | | | | | Leukocytosis, | | | | | | unspecified type; | | | | | | End-stage renal | | | | | | disease on | | | | | | peritoneal dialysis | | | | | | (HCC); Epigastric | | | | | | pain; Hypokalemia | +--------+ + + + + Social [...] + + + | Blood Pressure | 136/73 | 09/13/2017 3:37 PM | | | | | PDT | | + + + + + | Pulse | 102 | 09/13/2017 3:37 PM | | | | | PDT | | + + + + + | Temperature | 36.9 C (98.4 F) | 09/13/2017 3:37 PM | | | | | PDT | | + + + + + | Respiratory Rate | 16 | 09/13/2017 3:37 PM | | | | | PDT | | + + + + + | Oxygen Saturation | - | - | | + + + + + | Inhaled Oxygen | - | - | | | Concentration | | | | + + + + + | Weight | 69.7 kg (153 lb 10.6 | 09/13/2017 3:37 PM | | | | oz) | PDT | | + + + + + | Height | 157.5 cm (5' 2") | 09/13/2017 3:37 PM | | | | | PDT | | + + + + + | Body Mass Index | 28.11 | 09/13/2017 3:37 PM | | | | | PDT | | + + + + + documented in this encounter Discharge Summaries Ray Cruz MD - 09/13/2017 1:20 PM PDT Discharge Summaries by Ray Cruz DO at 09/13/17 1320 Author: Ray Cruz DO Service: Hospitalist Author Type: Physician Filed: 09/13/17 1616 Date of Service: 09/13/17 1320 Status: Signed Skilled Nursing Case Manager: Ray Cruz DO (Physician) [facility]: Hospitalist Discharge Summary Date of Admission: 09/06/2017 Date of Discharge: 09/13/2017 Discharge Physician: Ray Cruz DO Treatment Team: Consulting Physician: Amrik Reyna MD Consulting Physician: Jose C Kaye DO Consulting Physician: Beena Bernstein MD Admitting Provider: Alexx Pate MD Discharge Diagnoses: Principal Problem: Epigastric pain Active Problems: Gastroesophageal reflux disease without esophagitis ESRD on peritoneal dialysis Hypokalemia Morbid obesity due to excess calories (HCC) Nausea with vomiting Hypoalbuminemia Right ovarian cyst Leukocytosis Resolved Problems: Intractable hiccups Hypercalcemia Procedures: Procedure(s): ESOPHAGOGASTRODUODENOSCOPY BRIEF HISTORY OF PRESENTATION: Ramona Oconnor is a 37 y.o. female with a significant past medical history of ESRD o n PD, HTN, and GERD who presents with Persistent abdominal pain. The patient states that appx 3 weeks ago she began to have epigastric/RUQ abdominal pain th at has been persistent. She describes the pain as a burning sensation, as if her abdomen wer e on fire. She states the pain occurs post prandially and waxes and wanes. The pain is 8/10 at its worse and 4/10 at baseline. She has not tried anything to treat the pain. She has sig nificant dry heaving and states she is unable to keep anything down and is having significan t nausea. The pain has worsened the last three days, prompting the visit to the ED.She has not eaten and has reportedly lost 17 lbs in the last three days. She has not had any hematemesis. She is anuric at baseline. She has not had any fevers or chills, no dyspepsia, no hematochezia, no CP. She was admitted in January of 2017 for peritonitis. HOSPITAL COURSE: Patient was admitted and treated for abdominal pain. Initial concern for peritonitis f rom peritoneal dialysis. ID was consulted, initially treated with ceftazidime and Vancomycin . After evaluation from GI and EGD, concern was for gastritis. Nephrology was consulted for continued peritoneal dialysis. Pain improved and nausea controlled with Phenergan. At time o f discharge, patient felt improved, tolerating PO diet, nausea controlled. Past Medical History Diagnosis Date Diverticulosis GERD (gastroesophageal reflux disease) Hypercalcemia 09/07/2017 Hyperphosphatemia 10/28/2015 Hypocalcemia 10/28/2015 Itching 10/28/2015 Metabolic acidosis 10/28/2015 Obesity Peritonitis associated with peritoneal dialysis (HCC) 01/24/2017 Uremia 10/28/2015 Past Surgical History Procedure Laterality Date ESOPHAGOGASTRODUODENOSCOPY N/A 09/10/2017 Procedure: ESOPHAGOGASTRODUODENOSCOPY; Surgeon: Beena Bernstein MD; Location: [facility]; Service: Gastroenterology; Laterality: N/A; PERITONEAL CATHETER INSERTION N/A 10/28/2015 Procedure: LAPAROSCOPIC - PERITONEAL DIALYSIS CATH INSERTION; Surgeon: Mundo Ramos MD; Lo cation: [facility] MAIN OR; Service: Vascular; Laterality: N/A; No Known Allergies Prescriptions Prior to Admission Medication Sig Dispense Refill Last Dose ALPRAZolam (XANAX) 0.5 MG tablet Take 0.5 mg by mouth nightly as needed for Sleep. @0930 at 1000 amLODIPine (NORVASC) 2.5 MG tablet Take 2.5 mg by mouth daily. 06/03/2017@1400 ergocalciferol (DRISDOL) 36603 UNITS capsule Take 50,000 Units by mouth once a week. 06/02/2017 gentamicin (GARAMYCIN) 0.1 % ointment Apply topically 3 (three) times daily. 15 g 1 LORazepam (ATIVAN) 1 MG tablet Take 1 mg by mouth every 8 (eight) hours as needed for A nxiety. 06/04/2017 ondansetron (ZOFRAN) 8 MG tablet Take 1 tablet by mouth every 8 (eight) hours as needed for Nausea. 30 tablet 11 Unknown potassium chloride (K-DUR,KLOR-CON) 20 MEQ tablet Take 1 tablet by mouth daily. 30 tabl et 0 sevelamer (RENVELA) 800 MG tablet Take 2 tablets by mouth 3 (three) times daily with me als. 180 tablet 1 06/01/2017 DISCHARGE EXAM Vital Signs: BP 121/78 (BP Location: Left upper arm) | Pulse 116 | Temp 97.7 F (36.5 C) (Oral) | Resp 16 | Ht 1.575 m (5' 2") | Wt 69.7 kg (153 lb 10.6 oz) | SpO2 98% | ? N o | BMI 28.10 kg/m Temp: [97.7 F (36.5 C)-98.6 F (37 C)] 97.7 F (36.5 C) (09/13 1149) BP: (111-130)/(62-88) 121/78 (09/13 1149) Heart Rate: [89-116] 116 (09/13 1149) Resp: [16-18] 16 (09/13 1149) SpO2: [91 %-100 %] 98 % (09/13 1149) Weight: [69.7 kg (153 lb 10.6 oz)-70.9 kg (156 lb 4.9 oz)] 69.7 kg (153 lb 10.6 oz) (09/13 716) Physical Exam Constitutional: She is oriented to person, place, and time. She appears well-developed and well-nourished. HENT: Head: Normocephalic and atraumatic. Eyes: Conjunctivae are normal. Pupils are equal, round, and reactive to light. Neck: Normal range of motion. Neck supple. Cardiovascular: Normal rate and regular rhythm. Pulmonary/Chest: Effort normal and breath sounds normal. No respiratory distress. She has n o wheezes. Abdominal: Soft. Bowel sounds are normal. She exhibits no distension and no mass. There is tenderness. There is no rebound and no guarding. Musculoskeletal: Normal range of motion. She exhibits no edema or deformity. Neurological: She is alert and oriented to person, place, and time. Skin: Skin is warm and dry. Psychiatric: She has a normal mood and affect. Her behavior is normal. DATA CBC: Lab Results Component Value Date WBC 12.01 (H) 09/13/2017 RBC 4.34 09/13/2017 HGB 12.5 09/13/2017 HCT 37.1 09/13/2017 MCV 85.6 09/13/2017 MCH 28.9 09/13/2017 MCHC 33.8 09/13/2017 RDW 46.8 09/13/2017 PLT 310 09/13/2017 MPV 8.4 09/13/2017 DIFFTYPE MANUAL 09/13/2017 CMP: Lab Results Component Value Date NA 137 09/13/2017 K 3.4 (L) 09/13/2017 CL 98 (L) 09/13/2017 CO2 28 09/13/2017 ANIONGAP 14 09/13/2017 GLUF 97 09/13/2017 BUN 24 09/13/2017 CREATININE 12.8 (H) 09/13/2017 BCR 2 09/13/2017 CA 9.6 09/13/2017 CA 9.0 09/07/2017 PROT 7.3 09/13/2017 ALB 2.3 (L) 09/13/2017 GLOB 5.0 (H) 09/13/2017 BILITOT 0.3 09/13/2017 ALP 108 09/13/2017 AST 28 09/13/2017 ALT 32 09/13/2017 EGFR 3 (L) 09/13/2017 PLAN Discharge home. Follow-up with PCP, GI, Nephrology. Disposition: Home Condition: Stable Code Status: Full Code No discharge procedures on file. Follow up: [facility] [address] [place] [address] Chago Chi MD [address] [place] [address] Beena Bernstein MD [address] [facility] [place] [address] Medication List START taking these medications HYDROcodone-acetaminophen 5-325 MG per tablet QTY: 30 tablet Refills: 0 Commonly known as: NORCO Take 1 tablet by mouth every 6 (six) hours as needed for Pain for up to 10 days. metoclopramide 5 MG tablet QTY: 20 tablet Refills: 0 Commonly known as: REGLAN Take 1 tablet by mouth 2 (two) times daily before meals for 10 days. pantoprazole 40 MG tablet QTY: 56 tablet Refills: 0 Commonly known as: PROTONIX Take 1 tablet by mouth 2 (two) times daily for 28 days. Replaces: omeprazole 20 MG capsule rifaximin 550 MG Tabs QTY: 12 tablet Refills: 0 Commonly known as: XIFAXAN Take 1 tablet by mouth 3 (three) times daily for 4 days. CONTINUE taking these medications ALPRAZolam 0.5 MG tablet Refills: 0 Commonly known as: XANAX amLODIPine 2.5 MG tablet Refills: 0 Commonly known as: NORVASC ergocalciferol 99716 units capsule Refills: 0 Commonly known as: [...] 25 MG tablet QTY: 30 tablet Refills: 0 Commonly known as: PHENERGAN Take 1 tablet [...] Care Pro vider. STOP taking these medications omeprazole 20 MG capsule Commonly known as: PRILOSEC Replaced by: pantoprazole 40 MG tablet torsemide 20 MG tablet Commonly known as: DEMADEX Where to Get Your Medications You can get these medications from any pharmacy Bring a paper prescription for each of these medications HYDROcodone-acetaminophen 5-325 MG per tablet metoclopramide 5 MG tablet pantoprazole 40 MG tablet promethazine 25 MG tablet rifaximin 550 MG Tabs Discharge took 45 minutes, to include final examination, discussion of admission, and prepa ration of prescriptions, instructions for on-going care, follow-up and documentation of disc harge summary. Ray Cruz DO 09/13/2017 1:20 PM documented in this encoun ter Medications at Time of Discharge + + [...] documented as of this encounter Progress Notes Chago Chi MD - 09/13/2017 10:44 AM PDT Progress Notes by Chago Chi MD at 09/13/17 1044 Author: Chago Chi MD Service: Nephrology Author Type: Physician Filed: 09/22/17 1820 Date of Service: 09/13/171043 Status: Signed Skilled Nursing Case Manager: Chago Chi MD (Physician) [facility]: Nephrology Progress Note Hospital Problem List: Principal Problem: Epigastric pain Active Problems: Gastroesophageal reflux disease without esophagitis ESRD on peritoneal dialysis Hypokalemia Morbid obesity due to excess calories (HCC) Nausea with vomiting Hypoalbuminemia Right ovarian cyst Leukocytosis The patient says that she feels 'better' today. she denies any cp, sob, abd pain, n/v. her urine output is very low. The following portions of the patient's history were reviewed and updated as appropriate: l aboratory data, radiologic studies, allergies, current medications, and problem list. As in History of Present Illness & Assessment below. All the pertinent systems were reviewe d and were otherwise negative. amLODIPine 2.5 mg Oral Daily diazepam 5 mg Intravenous Once heparin (porcine) 5000 unit/0.5mL 5,000 Units Subcutaneous 2 times per day lactulose 20 g Oral TID lidocaine buffered 1% 0.5 mL Intradermal Once metoclopramide 5 mg Oral BID AC pantoprazole 40 mg Oral BID AC potassium chloride SA 20 mEq Oral TID rifaximin 550 mg Oral TID sevelamer 1,600 mg Oral TID WC sodium chloride (PF) 10 mL Intravenous Q8H P.E. BP 123/88 (BP Location: Left upper arm) | Pulse 97 | Temp 98 F (36.7 C) (Oral) | Res p 16 | Ht 1.575 m (5' 2") | Wt 69.7 kg (153 lb 10.6 oz) | SpO2 95% | ? No | BMI 28.10 kg/m General appearance: Pleasant, not in acute distress. Neck: Supple without tracheal deviation or jugular venous distension. Head and ENT: Head is atraumatic. The oropharynx is without erythema or thrush. Eyes: Anicteric. The extraocular muscle movements are normal. Lungs: Good A/E to auscultation bilaterally. There [...] normal. Judgment and thought content are normal. Access: PD site is benign. Lab Results Component Value Date BUN 24 09/13/2017 CREATININE 12.8 (H) 09/13/2017 EGFR 3 (L) 09/13/2017 NA 137 09/13/2017 K 3.4 (L) 09/13/2017 CL 98 (L) 09/13/2017 CO2 28 09/13/2017 CA 9.6 09/13/2017 PHOS 3.9 09/10/2017 MG 2.4 09/13/2017 ALB 2.3 (L) 09/13/2017 HGB 12.5 09/13/2017 I/O last 3 completed shifts: In: 96558 [P.O.:750; Other:74233] Out: 96860 [Other:11356] I/O this shift: In: 56567 [P.O.:640; Other:71449] Out: 78552 [Other:07041] Assessment: Ms. Oconnor is a 37 y.o. female patient with ESRD, PD. Recurrent N/V & abd pain. Today better. No evidence of peritonitis. EGD shows mild gastritis & esophagitis. RENAL FUNCTION: No significant RKF BLOOD PRESSURE: ok ELECTROLYTES: Mild hypoK ALBUMIN: Severely low ANEMIA: None now URINALYSIS: Not checked VOLUME STATUS: Relative euvolemia Recommendations: 1. Daily PD 2. Target no UF as possible 3. No IVF need 4. Advise fluid restriction of 1.5 L per 24 hrs 5. KCl suppl as ordered 6. Prot suppl stressed 7. No AGNELA need now 8. Strict I/O & daily weights. 9. Dose all of her meds to her current daily PD 10. Continue to avoid all kinds of nephrotoxins. 11. Target euvolumia with a MAP>75 mmHg as possible. 12. Given her tendency for anasarca: Encourage adequate intake & close dietitian F/U. Encou rage ambulation safely. Encourage the adequate use of an incentive spirometer. F/U: Also seen and examined during dialysis. Tolerating it well. Access: no issues. UF: target minimal UF as tolerated. Next dialysis: daily PD. I discussed with the primary team the case at the time of this encounter. I spent 35 total minutes today in reviewing & updating the patient's chart, formulating a p joni, in addition to patient education and discussions with the primary/consulting team. CHAGO CHI MD 09/13/2017 Jose C Moffett DO - 09/13/2017 10:24 AM PDT Progress Notes by Jose C Kaye DO at 09/13/17 1024 Author: Jose C Kaye DO Service: (none) Author Type: Physician Filed: 09/13/17 1114 Date of Service: 09/13/17 1024 Status: Signed Skilled Nursing Case Manager: Jose C Kaye DO (Physician) [facility]: Infectious Disease Progress Note Hospital Day: LOS: 6 days Post-Op Day: * No surgery found * SUBJECTIVE Patient Summary: 37 y.o. female with significant past medical history of end-stage renal disease on peritoneal dialysis who was admitted in January of this year for an episode o f peritonitis who presents with several weeks of worsening persistent abdominal pain. At the time of admission, clinical findings were most suggestive of peritonitis. A sample was greg ected from her peritoneal dialysate, following which she was placed empirically on Fortaz an d vancomycin. The patient primarily reports pain in the upper abdomen, mostly in the epigast zainab area. This is been present for several weeks, and she had been recommended to undergo an upper endoscopy as an outpatient, although had not yet been able to schedule the procedure. CC: Abdominal pain Chart reviewed: No new events. Subjective The patient reports that she ate breakfast and lunch without difficulty yesterday, did have some vomiting toward the end of the day however. She is doing better with her breakfast tod ay. ROS No fever, chills sweats. No nausea, vomiting or diarrhea. No rashes or pruritis. No oral pa in. Scheduled Medications amLODIPine 2.5 mg Oral Daily diazepam 5 mg Intravenous Once heparin (porcine) 5000 unit/0.5mL 5,000 Units Subcutaneous 2 times per day lactulose 20 g Oral TID lidocaine buffered 1% 0.5 mL Intradermal Once metoclopramide 5 mg Oral BID AC pantoprazole 40 mg Oral BID AC potassium chloride SA 20 mEq Oral TID rifaximin 550 mg Oral TID sevelamer 1,600 mg Oral TID WC sodium chloride (PF) 10 mL Intravenous Q8H Continuous Infusions PRN Medications acetaminophen OR acetaminophen, morphine OR morphine OR morphine, ondansetron, polyethylene glycol, promethazine, zolpidem OBJECTIVE Vital Signs: BP 123/88 (BP Location: Left upper arm) | Pulse 97 | Temp 98 F (36.7 C) (Oral) | Res p 16 | Ht 1.575 m (5' 2") | Wt 69.7 kg (153 lb 10.6 oz) | SpO2 95% | ? No | BMI 28.10 kg/m Temp (24hrs), Av.3 F (36.8 C), Min:98 F (36.7 C), Max:98.6 F (37 C) Exam: Const: Vitals reviewed. No acute distress Skin: No rashes, no edema ENT: No thrush. Lungs: CTAB, no rales or wheezes Heart: RRR, no murmur Abd: soft, moderate epigastric tenderness, + bowel sounds DATA CBC: Lab Results Component Value Date WBC 12.01 (H) 09/13/2017 RBC 4.34 09/13/2017 HGB 12.5 09/13/2017 HCT 37.1 09/13/2017 MCV 85.6 09/13/2017 MCH 28.9 09/13/2017 MCHC 33.8 09/13/2017 RDW 46.8 09/13/2017 PLT 310 09/13/2017 MPV 8.4 09/13/2017 DIFFTYPE MANUAL 09/13/2017 CMP: Lab Results Component Value Date NA 137 09/13/2017 K 3.4 (L) 09/13/2017 CL 98 (L) 09/13/2017 CO2 28 09/13/2017 ANIONGAP 14 09/13/2017 GLUF 97 09/13/2017 BUN 24 09/13/2017 CREATININE 12.8 (H) 09/13/2017 BCR 2 09/13/2017 CA 9.6 09/13/2017 CA 9.0 09/07/2017 PROT 7.3 09/13/2017 ALB 2.3 (L) 09/13/2017 GLOB 5.0 (H) 09/13/2017 BILITOT 0.3 09/13/2017 ALP 108 09/13/2017 AST 28 09/13/2017 ALT 32 09/13/2017 EGFR 3 (L) 09/13/2017 Microbiology: Peritoneal fluid culture is pending. Blood cultures are pending. Peritoneal f luid cell count was 127 with 56 percent neutrophils. PROBLEM LIST Principal Problem: Epigastric pain Active Problems: Gastroesophageal reflux disease without esophagitis ESRD on peritoneal dialysis Hypokalemia Morbid obesity due to excess calories (HCC) Nausea with vomiting Hypoalbuminemia Right ovarian cyst Leukocytosis ASSESSMENT & PLAN Peritonitis associated with peritoneal dialysis / Leukocytosis (HCC) (01/24/2017) The patient's laboratory assessment from peritoneal fluid does not meet criteria for beba tonitis, and cultures have ultimately been negative. Symptoms are more consistent with gastr itis, possibly gastroparesis. Antibiotics were discontinued on September 11. White blood cell count is slightly increased today, but patient remains afebrile, is clinically improved, and shows no left shift on differential. Nausea and vomiting, suspect gastritis Defer to gastroenterology for symptomatic management, improving. Will continue to monitor off antibiotics. ESRD on peritoneal dialysis (06/04/2017) Antibiotics have been discontinued. Right ovarian cyst (09/07/2017) No findings on CT scan to suggest secondary infection, does not correlate with the locati on of the patient's current pain. Disposition: Ready for discharge from infectious diseases standpoint. Code Status: Full Code JOSE C KAYE DO 09/13/2017 randin Cortez MD - 09/12/2017 7:14 PM PDT Progress Notes by Brandin Cortez MD at 09/12/171913 Author: Brandin Cortez MD Service: Hospitalist Author Type: Physician Filed: 09/12/171916 Date of Service: 09/12/171913 Status: Signed Skilled Nursing Case Manager: Brandin Cortez MD (Physician) [facility]: Hospitalist Progress Note Hospital Day: LOS: 5 days SUBJECTIVE Patient Summary: As per prior hospitalist's note: Has ESRD on PD admitted for abd tatiana n nausea vomiting and hiccups. PD fluid is suspicious for infection. On abx.ID following. Al so spoke with GI who advised carafate and golyetely for constipation. Patient did not tolera te golytely so was switched to lactulose. Subsequently: Dr Bernstein has evaluated endoscopically. Antibiotics to be stopped as per infect ious disease recommendations. Patient with ongoing nausea and vomiting despite treatment. Se ems to be improved with Phenergan the most. Patient willing to consider potentially supposit ories tomorrow. Nephrology following. Events Overnight: Patient reports ongoing nausea vomiting most improved by Phenergan. Requiring this IV still. Denies fever chills chest pain dyspnea. Scheduled Medications amLODIPine 2.5 mg Oral Daily diazepam 5 mg Intravenous Once heparin (porcine) 5000 unit/0.5mL 5,000 Units Subcutaneous 2 times per day lactulose 20 g Oral TID lidocaine buffered 1% 0.5 mL Intradermal Once metoclopramide 5 mg Oral BID AC pantoprazole 40 mg Oral BID AC potassium chloride SA 20 mEq Oral TID rifaximin 550 mg Oral TID sevelamer 1,600 mg Oral TID WC sodium chloride (PF) 10 mL Intravenous Q8H Continuous Infusions OBJECTIVE Vital Signs: BP 120/62 (BP Location: Left upper arm) | Pulse 98 | Temp 98 F (36.7 C) (Oral) | Res p 18 | Ht 1.575 m (5' 2") | Wt 70.9 kg (156 lb 4.9 oz) Comment: bedscale | SpO2 97% | Olga astfeeding? No | BMI 28.59 kg/m Physical Exam General Appearance: awake, alert, oriented, in no acute distress Eyes: No gross abnormalities. Neck: neck- supple, no mass, non-tender Lungs: Normal expansion. Clear to auscultation. No rales, rhonchi, or wheezing. Abdomen: Soft, non-tender, normal bowel sounds. No bruits, organomegaly or masses. Extremities: pulses present in all extremities Neuro: axo x 3 denies acute focal deficit. Psych: affect appropriate DATA Recent Labs Lab 09/12/1745509/11/17 0556 09/10/17 0606 09/09/17 1022 WBC 10.90 10.22 10.63 11.31* HGB 12.2 11.8 11.6 11.1* HCT 35.6 34.9 34.9 32.2* PLT 300 333 305 289 NEUTOPHILPCT -- 77.87 78.69 81.02 MONOPCT -- 8.97 7.95 5.49 Recent Labs Lab 09/12/1745509/11/17 0556 09/10/17 0606 NA 138 137 139 K 2.9* 3.0* 3.6 CL 98* 97* 98* CO2 27 27 29 BUN 24 29* 28* CREATININE 12.6* 13.0* 13* PROT 7.1 7.1 7.2 BILITOT 0.4 0.4 0.3 ALT 26 20 15 AST 28 19 16 Phosphorus: Lab Results Component Value Date PHOS 3.9 09/10/2017 Invalid input(s): LABALBU Recent Labs Lab 09/12/1745509/11/17 0556 09/10/17 0606 MG 2.2 2.3 2.1 No results for input(s): AMYLASE in the last 168 hours. No results for input(s): PHART, PO2ART, LYI8QGM, P2ZGRBKV, BEART in the last 168 hours. No results for input(s): APTT, INR, PTT in the last 168 hours. No results for input(s): TSH, T3FREE, FREET4 in the last 168 hours. No results for input(s): CKTOTAL, TROPONINI, TROPONINT, CKMBINDEX in the last 168 hours. Radiology Ultrasound Pelvis, Non- Result Date: 09/07/2017 1. There is a complex multiseptated 3.8 x 3.5 x 3.1 cm lesion within the right ovary. This may represent a hemorrhagic cyst or endometrioma. Based on consensus guidelines, follow-up p elvic ultrasound recommended at 6 weeks. 2. Possible 1.4 cm right-sided paraovarian cyst. At tention on follow-up exam recommended. RADIA Electronically signed by Star Boyd MD on O 2016 3:38AM Referring Provider Line: [phone] ID: [id number] Ct Abdomen Pelvis With Iv Contrast Result Date: 09/07/2017 1. Heterogeneous somewhat complex appearing right adnexal abnormality measuring 4.9 x 4.5 c m (image 70 series 3), probably a hemorrhagic ovarian cyst. Further assessment recommended w ith pelvic ultrasound. 2. Again seen is a 1.3 cm left adrenal nodule, difficult to accuratel y characterize. No significant change from the prior 01/22/2017 study. Follow-up adrenal pro tocol CT recommended at January 2018. RADIA Electronically signed by Star Boyd MD on Sep 07 2017 1:06AM Referring Provider Line: [phone] ID: [id number] Ultrasound Abdomen, Gallbladder Result Date: 09/06/2017 Mildly distended gallbladder without evidence of cholelithiasis or acute cholecystitis. No bile duct obstruction. RADIA Electronically signed by Stepan Wiggins on Sep 06 2017 11: 45PM Referring Provider Line: [phone] ID: [id number] PROBLEM LIST Principal Problem: Epigastric pain Active Problems: Gastroesophageal reflux disease without esophagitis ESRD on peritoneal dialysis Hypokalemia Morbid obesity due to excess calories (HCC) Nausea with vomiting Hypoalbuminemia Right ovarian cyst Leukocytosis Resolved Problems: Intractable hiccups Hypercalcemia ASSESSMENT & PLAN 1. Abdominal pain: Initially felt could be related to peritonitis presently suspicion if more otward gastriti s. As per ID note they were stopping antbx, but presently antbx still ordered, Will discuss with them. September 12, 2017: Abdominal pain seems to be improving however ongoing nausea and vomiting. 2. End-stage renal disease: Continue peritoneal dialysis. 3. Nausea and vomiting: September 11: Still present, reports the phenergan helped the most, will stop the reglan and order phenergan and c/w zofran. September 12, 2017: Continuing with the Phenergan for now as patient feels this helps the mos t. There may be an element of gastroparesis so considering restart of Reglan. Patient consid ering possibly Phenergan suppositories as per our discussion not open to this today but coul d readdress this tomorrow. 3.5 gastritis: As per nephrology pt should not take the carafate as has alluminum in it. Pt would like ph energan as this seems to help the nausea. Await the h pylori Results. September 12, 2017: Continue with current regimen for now await Helicobacter pylori results f rom GI. 3.5 Constipation: Per prior notes discussed with GI who advised go lytely but patient did not tolerate it s o they were to start lactulose 4. Right ovarian hemorrhagic cyst: Outpatient followup with EXTERIOR DESIGNER. 5. Leukocytosis: improved Recent Labs Lab 09/12/17 0456 09/11/17 0556 09/10/17 0606 WBC 10.90 10.22 10.63 HGB 12.2 11.8 11.6 HCT 35.6 34.9 34.9 PLT 300 333 305 6. Hypokalemia: Defer to nephrology for further management. Presently I see ongoing replacement which I de john to nephrology given the fact that she is on peritoneal dialysis . 7. DVT prophylaxis. Heparin. Code Status: Full Code BRANDIN CORTEZ MD 09/12/2017 7:14 PM onversion Transac tion, Provider Unknown - 09/12/2017 3:03 PM PDTFormatting of this note might be different f rom the original. Progress Notes by Janet Gutierrez RD at 09/12/17 6837 Author: Janet Gutierrez RD Service: (none) Author Type: Registered Dietitian Filed: 09/12/17 8135 Date of Service: 09/12/17 1503 Status: Signed Skilled Nursing Case Manager: Janet Gutierrez RD (Registered Dietitian) 09/12/17 1439 Subjective Timepoint Follow up (M risk) Pt c/o RN reports pt has been unable to tolerate po. Pt in bathroom at time of visit. Durin g visit pt started puking up breakfast. Reported by Family Fluid / Beverage Intake Oral Fluids Amount Fluids ad kimberly. Liquid Meal Replacement or Supplement reports pt has done [employer] REPRESENTATIVE. Food Intake Amount of Food Pt's mom reports pt had Chinese toast for breakfast that stayed down until th is afternoon. RN reports pt had 75% of breakfast this morning. Pt's mom reports pt has been throwing everything up for the past couple of days. Type of Food / Meals Renal diet Micronutrient Intake Mineral / Element Intake Potassium;Chloride Nutrition-Focused Physical Findings Digestive System (Mouth to Rectum) N/V. RN reports pt threw up last night. Anthropometrics Weight change Unsure of accuracy of admit wt- if pt was volume overloaded. Using 72.1 kg pt 's wt has gone down 2.2 kg (3%) over the past week. Per I/O's pt is 1488 ml fluid negative. Continue to monitor wt trend. Biochemical data, medical tests, and procedures reviewed Biochemical data, medical tests, and procedures reviewed K 2.9 (L)- recommend replacing, BG 123 (H)- BG's have been in the 110s-120s and Cr 12.6 (H). Recommendations Recommended energy needs Renal diet as ordered. Encourage po intake as tolerated. Supplemen ts available as needed. Monitor and follow as indicated. Nutritional Risk Nutritional risk High Nutritional risk comment Pt most likely meets criteria for malnutrition but unable to asses s d/t fluid status. Will continue to monitor. Follow up date 09/15/[address] Amrik Moreno MD - 09/12/2017 2:57 PM PDTFormatting of this note might be different from the or iginal. Progress Notes by Amrik Reyna MD at 09/12/17 3692 Author: Amrik Reyna MD Service: Nephrology Author Type: Physician Filed: 09/12/17 1500 Date of Service: 09/12/17 6932 Status: Signed Skilled Nursing Case Manager: Amrik Reyna MD (Physician) PCP : [facility] LOS: 5 days Ramona Oconnor is a 37 y.o. 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 She is known to me from a previous admission 01/2017 when she was admitted with peritoniti s. She is now admitted with recurrent nausea/upper abdominal pain going on for a couple of day s. Nausea predates the pain and she has been having nausea for a couple of weeks and michaelen ho at her monthly meeting with Dr. Chi was advised GI evaluation. Beginning Friday she began to have upper abdominal pain/progressive/severe/associated with severe nausea and without any relief. She has been constipated but denied any cloudy periton eal fluid during PD. She denied any fever/chills. In ED she was hemodynamically stable with no fever/tachycardia/bradycardia. BP was on the h igher side. Imaging with Ultrasound Pelvis 09/07/2017 showed a complex multiseptated 3.8 x 3.5 x 3.1 cm lesion within the right ovary. 2. Possible 1.4 cm right-sided paraovarian cyst. Ct Abdomen Pelvis With Iv Contrast 09/07/2017 showed heterogeneous somewhat complex appeari ng right adnexal abnormality measuring 4.9 x 4.5 cm (image 70 series 3), probably a hemorrha gic ovarian cyst; 1.3 cm left adrenal nodule, difficult to accurately characterize. No signi ficant change from the prior 01/22/2017 study. Follow-up adrenal protocol CT recommended at January 2018. Ultrasound Abdomen, Gallbladder 09/06/2017 showed mildly distended gallbladder without evid ence of cholelithiasis or acute cholecystitis. No bile duct obstruction. Lab work up showed mild leucocytosis with WBC count of 15.75 and hypokalemia with K of 3.4 and hypercalcemia (Ca of 10.3 with albumin of 2.7). Lipase was normal at 199. Lactate was quite low at 1. Pro calcitonin level was elevated at 1.52 from 09/07/17. PD fluid subsequently showed a cell count of 127 with 56% neutrophils. Gram stain was -. Nephrology consultation was requested by Dr. Gates for PD and given concern with periton itis. She was seen with her mother. 09/08/17 09/09/17 09/10/[address] 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 She continues to have nausea and abdominal pain which she feels are improved "a little sinc e admission". She threw up her dinner last night. She had uncomplicated PD ON. There are no documented episodes of fever, chills, shortness of breath, chest pain, cough. ROS: As in History of Present Illness. 7 area ROS was done and was otherwise negative. Examination: Constitutional: Alert, awake, oriented lying flat in bed in in some distress from abdominal pain. No asterixis.. HEENT: Thick neck without JVD, non- icteric sclera. Cardiovascular: S1 soft. No S3. No pericardial rub. LUNGS:: Effort fair. Scattered rales at bases. Abdominal: Minimal tenderness without guarding epigastric region. No distension and no mas s. No rebound tenderness and no guarding. PD [...] 10/25/15 showed normal sized kidneys. 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 Primary accounting systems analyst is Dr. Chi Essential HTN Anemia of chronic renal failure Secondary hyperparathyroidism Family/social history: She lives at home and is a former smoker. Vital Signs: BP 130/83 (BP Location: Left upper arm) | Pulse 106 | Temp 98.3 F (36.8 C) (Oral) | Resp 16 | Ht 1.575 m (5' 2") | Wt 69.9 kg (154 lb 1.6 oz) Comment: bed scale | SpO2 96% | ? No | BMI 28.19 kg/m Data evaluation: Lab Results Component Value Date BUN 24 09/12/2017 CREATININE 12.6 (H) 09/12/2017 EGFR 4 (L) 09/12/2017 NA 138 09/12/2017 K 2.9 (L) 09/12/2017 CL 98 (L) 09/12/2017 CO2 27 09/12/2017 CA 9.3 09/12/2017 PHOS 3.9 09/10/2017 MG 2.2 09/12/2017 ALB 2.3 (L) 09/12/2017 HGB 12.2 09/12/2017 Assessment and Recommendations: 1. ESRD on PD 2. Epigastric pain 3. Hypoalbuminemia 4. Hypokalemia 5. Anemia of chronic kidney disease PD fluid cultures are -. While her abdominal pain is not classical for peritonitis and she did not have cloudy effluent/positive culture she did have elevated pro calcitonin and leuco cytosis without any alternative diagnosis. Clinically she improved with improved nausea/abdo kelsie pain after empiric administration of vancomycin and ceftazidime. Interestingly her symptoms and signs are disproportionate to her EGD findings of mild gastr itis and esophagitis. Abx have been discontinued. She has manifested mild normocytic anemia. PD fluid culture from 09/07/17 remains -. Hypercalcemia by itself could also cause her symptoms. Hypercalcemia has improved. PTH is a ppropriately suppressed at 23.4 with low vitamin D level of 26 from 09/07/17. She is clinically euvolemic. Blood pressure is labile 1. She is tolerating PD reasonably well using current access. 2. She can continue PD using her usual prescription of 10 hours with 5 cycles of 2 L tonigh t using mix of 1.5% and 2.5% dianeal solution. 3. Replace K to a target of 4 to 4.5 to reduce cardiac irritability. 4. Sucralfate should not be administered (contains aluminum which will cause adynamic bone disease and neurological complications). 5. Continue PPI. 6. FU gastric biopsy to rule out H pylori. 7. Start on low dose reglan as a prokinetic agent. If she is able to tolerate her meals without vomiting she may be discharged home. Diet: 1 gm PO4 restricted diet. Dose all meds for an eGFR of less than 15 ml/min/1.73 m2. No use of NSAIDs (including MENDES 2 inhibitors). No use of Magnesium or aluminum containing antacids. No use of Magnesium or phosphorus containing laxatives No Fluid restriction Strict I/O Daily weights. Keep in + balance. Plan of care was discussed with Dr. Regis REYNA MD 09/12/2017 Portions of my previous notes have been carried over for continuity of care. She was seen earlier in the day and charting was completed later after rounds. Dictation software, was [employer], used which may contain error for similar sounding words deja n after review. Personal communication is requested for any clarification. Prognosis is guarded in view of multiple comorbid illnesses and ESRD amLODIPine 2.5 mg Oral Daily diazepam 5 mg Intravenous Once heparin (porcine) 5000 unit/0.5mL 5,000 Units Subcutaneous 2 times per day lactulose 20 g Oral TID lidocaine buffered 1% 0.5 mL Intradermal Once metoclopramide 5 mg Oral BID AC pantoprazole 40 mg Oral BID AC potassium chloride SA 20 mEq Oral TID rifaximin 550 mg Oral TID sevelamer 1,600 mg Oral TID WC sodium chloride (PF) [address] Chi will [facility] nephrology service [facility] Jose C Bar DO - 1 11/12/2016 10:55 AM PDT Progress Notes by Jose C Kaye DO at 09/12/17 1056 Author: Jose C Kaye DO Service: (none) Author Type: Physician Filed: 09/12/17 9414 Date of Service: 09/12/17 1059 Status: Signed Skilled Nursing Case Manager: Jose C Kaye DO (Physician) [facility] Service: Infectious Disease Progress Note Hospital Day: LOS: 5 days Post-Op Day: * No surgery found * SUBJECTIVE Patient Summary: 37 y.o. female with significant past medical history of end-stage renal disease on peritoneal dialysis who was admitted in January of this year for an episode o f peritonitis who presents with several weeks of worsening persistent abdominal pain. At the time of admission, clinical findings were most suggestive of peritonitis. A sample was greg ected from her peritoneal dialysate, following which she was placed empirically on Fortaz an d vancomycin. The patient primarily reports pain in the upper abdomen, mostly in the epigast zainab area. This is been present for several weeks, and she had been recommended to undergo an upper endoscopy as an outpatient, although had not yet been able to schedule the procedure. CC: Abdominal pain Chart reviewed: No new events. Subjective The patient reports that she ate better this morning, Breakfast down. She was told that she can go home after she successfully completes 3 meals without any vomiting. Pain is also imp roving. ROS No fever, chills sweats. No nausea, vomiting or diarrhea. No rashes or pruritis. No oral pa in. Scheduled Medications amLODIPine 2.5 mg Oral Daily diazepam 5 mg Intravenous Once heparin (porcine) 5000 unit/0.5mL 5,000 Units Subcutaneous 2 times per day lactulose 20 g Oral TID lidocaine buffered 1% 0.5 mL Intradermal Once pantoprazole 40 mg Oral BID AC potassium chloride SA 20 mEq Oral TID rifaximin 550 mg Oral TID sevelamer 1,600 mg Oral TID WC sodium chloride (PF) 10 mL Intravenous Q8H Continuous Infusions PRN Medications acetaminophen OR acetaminophen, morphine OR morphine OR morphine, ondansetron, polyethylene glycol, promethazine, zolpidem OBJECTIVE Vital Signs: BP 131/73 | Pulse 82 | Temp 98.2 F (36.8 C) (Oral) | Resp 16 | Ht 1.575 m (5' 2") | Wt 69.9 kg (154 lb 1.6 oz) Comment: bed scale | SpO2 98% | ? No | BMI 28.19 kg/m Temp (24hrs), Av.2 F (36.8 C), Min:97.6 F (36.4 C), Max:98.5 F (36.9 C) Exam: Const: Vitals reviewed. No acute distress Skin: No rashes, no edema ENT: No thrush. Lungs: CTAB, no rales or wheezes Heart: RRR, no murmur Abd: soft, moderate epigastric tenderness, + bowel sounds DATA CBC: Lab Results Component Value Date WBC 10.90 09/12/2017 RBC 4.16 09/12/2017 HGB 12.2 09/12/2017 HCT 35.6 09/12/2017 MCV 85.7 09/12/2017 MCH 29.3 09/12/2017 MCHC 34.1 09/12/2017 RDW 45.9 09/12/2017 PLT 300 09/12/2017 MPV 8.3 09/12/2017 DIFFTYPE MANUAL 09/12/2017 CMP: Lab Results Component Value Date NA 138 09/12/2017 K 2.9 (L) 09/12/2017 CL 98 (L) 09/12/2017 CO2 27 09/12/2017 ANIONGAP 16 09/12/2017 GLUF 123 (H) 09/12/2017 BUN 24 09/12/2017 CREATININE 12.6 (H) 09/12/2017 BCR 2 09/12/2017 CA 9.3 09/12/2017 CA 9.0 09/07/2017 PROT 7.1 09/12/2017 ALB 2.3 (L) 09/12/2017 GLOB 4.8 09/12/2017 BILITOT 0.4 09/12/2017 ALP 103 09/12/2017 AST 28 09/12/2017 ALT 26 09/12/2017 EGFR 4 (L) 09/12/2017 Microbiology: Peritoneal fluid culture is pending. Blood cultures are pending. Peritoneal f luid cell count was 127 with 56 percent neutrophils. PROBLEM LIST Principal Problem: Epigastric pain Active Problems: Gastroesophageal reflux disease without esophagitis ESRD on peritoneal dialysis Hypokalemia Morbid obesity due to excess calories (HCC) Nausea with vomiting Hypoalbuminemia Right ovarian cyst Leukocytosis Intractable hiccups Hypercalcemia ASSESSMENT & PLAN Peritonitis associated with peritoneal dialysis / Leukocytosis (HCC) (01/24/2017) The patient's laboratory assessment from peritoneal fluid does not meet criteria for beba tonitis, and cultures have ultimately been negative. Symptoms are more consistent with gastr itis, possibly gastroparesis. Antibiotics were discontinued on September 11. Nausea and vomiting, suspect gastritis Defer to gastroenterology for symptomatic management, improving. Will continue to monitor off antibiotics. ESRD on peritoneal dialysis (06/04/2017) Antibiotics have been discontinued. Right ovarian cyst (09/07/2017) No findings on CT scan to suggest secondary infection, does not correlate with the locati on of the patient's current pain. Code Status: Full Code JOSE C KAYE DO 09/12/2017 Amrik Moreno MD - 1 11/11/2016 3:57 PM PDT Progress Notes by Amrik Reyna MD at 09/11/17 5244 Author: Amrik Reyna MD Service: Nephrology Author Type: Physician Filed: 09/11/17 1329 Date of Service: 09/11/17 3135 Status: Signed Skilled Nursing Case Manager: Amrik Reyna MD (Physician) PCP : [facility] LOS: 4 days Ramona Oconnor is a 37 y.o. 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 She is known to me from a previous admission 01/2017 when she was admitted with peritoniti s. She is now admitted with recurrent nausea/upper abdominal pain going on for a couple of day s. Nausea predates the pain and she has been having nausea for a couple of weeks and apparen ho at her monthly meeting with Dr. Chi was advised GI evaluation. Beginning Friday she began to have upper abdominal pain/progressive/severe/associated with severe nausea and without any relief. She has been constipated but denied any cloudy periton eal fluid during PD. She denied any fever/chills. In ED she was hemodynamically stable with no fever/tachycardia/bradycardia. BP was on the h igher side. Imaging with Ultrasound Pelvis 09/07/2017 showed a complex multiseptated 3.8 x 3.5 x 3.1 cm lesion within the right ovary. 2. Possible 1.4 cm right-sided paraovarian cyst. Ct Abdomen Pelvis With Iv Contrast 09/07/2017 showed heterogeneous somewhat complex appeari ng right adnexal abnormality measuring 4.9 x 4.5 cm (image 70 series 3), probably a hemorrha gic ovarian cyst; 1.3 cm left adrenal nodule, difficult to accurately characterize. No signi ficant change from the prior 01/22/2017 study. Follow-up adrenal protocol CT recommended at January 2018. Ultrasound Abdomen, Gallbladder 09/06/2017 showed mildly distended gallbladder without evid ence of cholelithiasis or acute cholecystitis. No bile duct obstruction. Lab work up showed mild leucocytosis with WBC count of 15.75 and hypokalemia with K of 3.4 and hypercalcemia (Ca of 10.3 with albumin of 2.7). Lipase was normal at 199. Lactate was quite low at 1. Pro calcitonin level was elevated at 1.52 from 09/07/17. PD fluid subsequently showed a cell count of 127 with 56% neutrophils. Gram stain was -. Nephrology consultation was requested by Dr. Gates for PD and given concern with periton itis. She was seen with her mother. 09/08/17 09/09/17 09/10/[address] 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 She continues to have nausea and abdominal pain which she feels are improved "a little sinc e admission". She threw up her breakfast today. She had uncomplicated PD ON. There are no documented episodes of fever, chills, shortness of breath, chest pain, cough. ROS: As in History of Present Illness. 7 area ROS was done and was otherwise negative. Examination: Constitutional: Alert, awake, oriented lying flat in bed in in some distress from abdominal pain. No asterixis.. HEENT: Thick neck without JVD, non- icteric sclera. Cardiovascular: S1 soft. No S3. No pericardial rub. LUNGS:: Effort fair. Scattered rales at bases. Abdominal: Minimal tenderness without guarding epigastric region. No distension and no mas s. No rebound tenderness and no guarding. PD [...] 10/25/15 showed normal sized kidneys. 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 Primary accounting systems analyst is Dr. Chi Essential HTN Anemia of chronic renal failure Secondary hyperparathyroidism Family/social history: She lives at home and is a former smoker. Vital Signs: BP 124/76 (BP Location: Left upper arm) | Pulse 105 | Temp 97.6 F (36.4 C) (Oral) | Resp 18 | Ht 1.575 m (5' 2") | Wt 71 kg (156 lb 8.4 oz) | SpO2 98% | ? No | BMI 28.63 kg/m Data evaluation: Lab Results Component Value Date BUN 29 (H) 09/11/2017 CREATININE 13.0 (H) 09/11/2017 EGFR 3 (L) 09/11/2017 NA 137 09/11/2017 K 3.0 (L) 09/11/2017 CL 97 (L) 09/11/2017 CO2 27 09/11/2017 CA 8.9 09/11/2017 PHOS 3.9 09/10/2017 MG 2.3 09/11/2017 ALB 2.3 (L) 09/11/2017 HGB 11.8 09/11/2017 Assessment and Recommendations: 1. ESRD on PD 2. Epigastric pain 3. Hypoalbuminemia 4. Hypokalemia 5. Anemia of chronic kidney disease PD fluid cultures are -. While her abdominal pain is not classical for peritonitis and she did not have cloudy effluent/positive culture she did have elevated pro calcitonin and leuco cytosis without any alternative diagnosis. Clinically she improved with improved nausea/abdo kelsie pain after empiric administration of vancomycin and ceftazidime. Interestingly her symptoms and signs are disproportionate to her EGD findings of mild gastr itis and esophagitis. Abx have been discontinued. She has manifested mild normocytic anemia. PD fluid culture from 09/07/17 remains -. She had uncomplicated PD with UF of 834 ml. Hypercalcemia by itself could also cause her symptoms. Hypercalcemia has improved. PTH is a ppropriately suppressed at 23.4 with low vitamin D level of 26 from 09/07/17. She is clinically euvolemic. Blood pressure is labile 1. She is tolerating PD reasonably well using current access. 2. She can continue PD using her usual prescription of 10 hours with 5 cycles of 2 L tonigh t using mix of 1.5% and 2.5% dianeal solution. 3. Replace K to a target of 4 to 4.5 to reduce cardiac irritability. 4. Sucralfate should not be administered (contains aluminum which will cause adynamic bone disease and neurological complications). 5. Continue PPI. 6. FU gastric biopsy to rule out H pylori. Diet: 1 gm PO4 restricted diet. Dose all meds for an eGFR of less than 15 ml/min/1.73 m2. No use of NSAIDs (including MENDES 2 inhibitors). No use of Magnesium or aluminum containing antacids. No use of Magnesium or phosphorus containing laxatives No Fluid restriction Strict I/O Daily weights. Keep in + balance. Plan of care was discussed with Dr. Stacy and Dr. Kaye. AMRIK REYNA MD 09/11/2017 Portions of my previous notes have been carried over for continuity of care. She was seen earlier in the day and charting was completed later after rounds. Dictation software, was [employer], used which may contain error for similar sounding words deja rodgers after review. Personal communication is requested for any clarification. Prognosis is guarded in view of multiple comorbid illnesses and ESRD amLODIPine 2.5 mg Oral Daily diazepam 5 mg Intravenous Once heparin (porcine) 5000 unit/0.5mL 5,000 Units Subcutaneous 2 times per day lactulose 20 g Oral TID lidocaine buffered 1% 0.5 mL Intradermal Once pantoprazole 40 mg Oral BID AC potassium chloride SA 20 mEq Oral TID rifaximin 550 mg Oral TID sevelamer 1,600 mg Oral TID WC sodium chloride (PF) 10 mL Intravenous Q8H sucralfate 1 g Oral 4x Daily onversion Transactio n, Provider Unknown - 09/11/2017 12:47 PM PDT Case Management by LUCILLE Grimaldo at 09/11/17 1247 Author: LUCILLE Grimaldo Service: (none) Author Type: Associate Professor Of Violin Filed: 09/11/17 1248 Date of Service: 09/11/17 1247 Status: Signed Skilled Nursing Case Manager: LUCILLE Grimaldo (Associate Professor Of Violin) Discharge planning: Pt will return home when medically ready. left message for Lazaro tellez with [facility] . Pt is not expected to dischar ge for a few days. Jose C Bar DO - 09/11/2017 10:37 AM PDTFormatting of this note might be different from the ave ginal. Progress Notes by Jose C Kaye DO at 09/11/17 1037 Author: Jose C Kaye DO Service: (none) Author Type: Physician Filed: 09/11/17 1145 Date of Service: 09/11/17 1037 Status: Signed Skilled Nursing Case Manager: Jose C Kaye DO (Physician) [facility]: Infectious Disease Progress Note Hospital Day: LOS: 4 days Post-Op Day: * No surgery found * SUBJECTIVE Patient Summary: 37 y.o. female with significant past medical history of end-stage renal disease on peritoneal dialysis who was admitted in January of this year for an episode o f peritonitis who presents with several weeks of worsening persistent abdominal pain. At the time of admission, clinical findings were most suggestive of peritonitis. A sample was greg ected from her peritoneal dialysate, following which she was placed empirically on Fortaz an d vancomycin. The patient primarily reports pain in the upper abdomen, mostly in the epigast zainab area. This is been present for several weeks, and she had been recommended to undergo an upper endoscopy as an outpatient, although had not yet been able to schedule the procedure. CC: Abdominal pain Chart reviewed: No new events. Subjective The patient had her endoscopy yesterday which did show acute superficial gastritis, biopsie s pending. Pain remains about the same, in the epigastric area, still having difficulty keep ing down any medications or food. ROS No fever, chills sweats. No diarrhea. No rashes or pruritis. No oral pain. Scheduled Medications amLODIPine 2.5 mg Oral Daily cefTAZidime 500 mg Intravenous Daily diazepam 5 mg Intravenous Once heparin (porcine) 5000 unit/0.5mL 5,000 Units Subcutaneous 2 times per day lactulose 20 g Oral TID lidocaine buffered 1% 0.5 mL Intradermal Once pantoprazole 40 mg Oral BID AC potassium chloride SA 20 mEq Oral TID rifaximin 550 mg Oral TID sevelamer 1,600 mg Oral TID WC sodium chloride (PF) 10 mL Intravenous Q8H sucralfate 1 g Oral 4x Daily vancomycin 1,000 mg Intravenous See Admin Instructions Continuous Infusions PRN Medications acetaminophen OR acetaminophen, metoclopramide, morphine OR morphine OR morphin e, ondansetron, polyethylene glycol, promethazine, zolpidem OBJECTIVE Vital Signs: BP 135/89 (BP Location: Left upper arm) | Pulse 96 | Temp 97.9 F (36.6 C) (Axillary) | Resp 16 | Ht 1.575 m (5' 2") | Wt 71 kg (156 lb 8.4 oz) | SpO2 97% | ? N o | BMI 28.63 kg/m Temp (24hrs), Av F (36.7 C), Min:97.6 F (36.4 C), Max:98.6 F (37 C) Exam: Const: Vitals reviewed. No acute distress Skin: No rashes, no edema ENT: No thrush. Lungs: CTAB, no rales or wheezes Heart: RRR, no murmur Abd: soft, moderate epigastric tenderness, + bowel sounds DATA CBC: Lab Results Component Value Date WBC 10.22 09/11/2017 RBC 4.05 09/11/2017 HGB 11.8 09/11/2017 HCT 34.9 09/11/2017 MCV 86.2 09/11/2017 MCH 29.1 09/11/2017 MCHC 33.7 09/11/2017 RDW 44.6 09/11/2017 PLT 333 09/11/2017 MPV 8.3 09/11/2017 DIFFTYPE AUTOMATED 09/11/2017 CMP: Lab Results Component Value Date NA 137 09/11/2017 K 3.0 (L) 09/11/2017 CL 97 (L) 09/11/2017 CO2 27 09/11/2017 ANIONGAP 16 09/11/2017 GLUF 111 (H) 09/11/2017 BUN 29 (H) 09/11/2017 CREATININE 13.0 (H) 09/11/2017 BCR 2 09/11/2017 CA 8.9 09/11/2017 CA 9.0 09/07/2017 PROT 7.1 09/11/2017 ALB 2.3 (L) 09/11/2017 GLOB 4.8 09/11/2017 BILITOT 0.4 09/11/2017 ALP 101 09/11/2017 AST 19 09/11/2017 ALT 20 09/11/2017 EGFR 3 (L) 09/11/2017 Microbiology: Peritoneal fluid culture is pending. Blood cultures are pending. Peritoneal f luid cell count was 127 with 56 percent neutrophils. PROBLEM LIST Principal Problem: Epigastric pain Active Problems: Gastroesophageal reflux disease without esophagitis Peritonitis associated with peritoneal dialysis (HCC) ESRD on peritoneal dialysis Hypokalemia Morbid obesity due to excess calories (HCC) Nausea with vomiting Hypoalbuminemia Right ovarian cyst Leukocytosis Intractable hiccups Hypercalcemia ASSESSMENT & PLAN Peritonitis associated with peritoneal dialysis / Leukocytosis (HCC) (01/24/2017) The patient's laboratory assessment from peritoneal fluid does not meet criteria for beba tonitis, and cultures have ultimately been negative. Symptoms are more consistent with gastr itis, possibly gastroparesis. Defer to gastroenterology for symptomatically management. Anti biotics can be discontinued. ESRD on peritoneal dialysis (06/04/2017) Antibiotics have been discontinued. Right ovarian cyst (09/07/2017) No findings on CT scan to suggest secondary infection, does not correlate with the locati on of the patient's current pain. Code Status: Full Code JOSE C KAYE DO 09/11/2017 Brandin Green MD - 09/11/2017 8:34 AM PDT Progress Notes by Brandin Cortez MD at 09/11/17833 Author: Brandin Cortez MD Service: Hospitalist Author Type: Physician Filed: 09/11/172101 Date of Service: 09/11/17833 Status: Signed Skilled Nursing Case Manager: Brandin Cortez MD (Physician) [facility]: Hospitalist Progress Note Hospital Day: LOS: 4 days SUBJECTIVE Patient Summary: Has ESRD on PD admitted for abd pain nausea vomiting and hiccups. PD fluid is suspicious for infection. On abx.ID following. Also spoke with GI who advised hugo fate and golyetely for constipation. Patient did not tolerate golytely so was switched to la ctulose. Dr Bernstein plans to do colonscopy today. Events Overnight: Patient reports improvement in abd pain Still nauseated ongoingly Scheduled Medications amLODIPine 2.5 mg Oral Daily cefTAZidime 500 mg Intravenous Daily diazepam 5 mg Intravenous Once heparin (porcine) 5000 unit/0.5mL 5,000 Units Subcutaneous 2 times per day lactulose 20 g Oral TID lidocaine buffered 1% 0.5 mL Intradermal Once pantoprazole 40 mg Oral BID AC potassium chloride SA 20 mEq Oral TID rifaximin 550 mg Oral TID sevelamer 1,600 mg Oral TID WC sodium chloride (PF) 10 mL Intravenous Q8H sucralfate 1 g Oral 4x Daily vancomycin 1,000 mg Intravenous See Admin Instructions vancomycin 1,000 mg Intravenous Once Continuous Infusions OBJECTIVE Vital Signs: BP 135/89 (BP Location: Left upper arm) | Pulse 96 | Temp 97.9 F (36.6 C) (Axillary) | Resp 16 | Ht 1.575 m (5' 2") | Wt 71 kg (156 lb 8.4 oz) | SpO2 97% | ? N o | BMI 28.63 kg/m Physical Exam General Appearance: awake, alert, oriented, in no acute distress Eyes: No gross abnormalities. Neck: neck- supple, no mass, non-tender Lungs: Normal expansion. Clear to auscultation. No rales, rhonchi, or wheezing. Abdomen: Soft, non-tender, normal bowel sounds. No bruits, organomegaly or masses. Extremities: pulses present in all extremities Neuro: axo x 3 denies acute focal deficit. Psych: affect appropriate DATA Recent Labs Lab 09/11/17 0556 09/10/17 0606 09/09/17 1022 WBC 10.22 10.63 11.31* HGB 11.8 11.6 11.1* HCT 34.9 34.9 32.2* PLT 333 305 289 NEUTOPHILPCT 77.87 78.69 81.02 MONOPCT 8.97 7.95 5.49 Recent Labs Lab 09/11/17 0556 09/10/17 0606 09/09/17 0555 NA 137 139 136 K 3.0* 3.6 2.9* CL 97* 98* 96* CO2 27 29 26 BUN 29* 28* 31* CREATININE 13.0* 13* 14* PROT 7.1 7.2 6.5 BILITOT 0.4 0.3 0.4 ALT 20 15 14 AST 19 16 16 Phosphorus: Lab Results Component Value Date PHOS 3.9 09/10/2017 Invalid input(s): LABALBU Recent Labs Lab 09/11/17 0556 09/10/17 0606 09/08/17 0452 MG 2.3 2.1 2.0 No results for input(s): AMYLASE in the last 168 hours. No results for input(s): PHART, PO2ART, CMY5NYO, M2NHMFDS, BEART in the last 168 hours. No results for input(s): APTT, INR, PTT in the last 168 hours. No results for input(s): TSH, T3FREE, FREET4 in the last 168 hours. No results for input(s): CKTOTAL, TROPONINI, TROPONINT, CKMBINDEX in the last 168 hours. Radiology Ultrasound Pelvis, Non- Result Date: 09/07/2017 1. There is a complex multiseptated 3.8 x 3.5 x 3.1 cm lesion within the right ovary. This may represent a hemorrhagic cyst or endometrioma. Based on consensus guidelines, follow-up p elvic ultrasound recommended at 6 weeks. 2. Possible 1.4 cm right-sided paraovarian cyst. At tention on follow-up exam recommended. STACIA Electronically signed by Star Boyd MD on O ct 2016 3:38AM Referring Provider Line: [phone] ID: [id number] Ct Abdomen Pelvis With Iv Contrast Result Date: 09/07/2017 1. Heterogeneous somewhat complex appearing right adnexal abnormality measuring 4.9 x 4.5 c m (image 70 series 3), probably a hemorrhagic ovarian cyst. Further assessment recommended w [facility] pelvic ultrasound. 2. Again seen is a 1.3 cm left adrenal nodule, difficult to accuratel y characterize. No significant change from the prior 01/22/2017 study. Follow-up adrenal pro tocol CT recommended at January 2018. RADIA Electronically signed by Star Boyd MD on Sep 07 2017 1:06AM Referring Provider Line: [phone] ID: [id number] Ultrasound Abdomen, Gallbladder Result Date: 09/06/2017 Mildly distended gallbladder without evidence of cholelithiasis or acute cholecystitis. No bile duct obstruction. RADIA Electronically signed by Stepan Wiggins on Sep 06 2017 11: 45PM Referring Provider Line: [phone] ID: [id number] PROBLEM LIST Principal Problem: Epigastric pain Active Problems: Gastroesophageal reflux disease without esophagitis Peritonitis associated with peritoneal dialysis (HCC) ESRD on peritoneal dialysis Hypokalemia Morbid obesity due to excess calories (HCC) Nausea with vomiting Hypoalbuminemia Right ovarian cyst Leukocytosis Intractable hiccups Hypercalcemia Resolved Problems: * No resolved hospital problems. * ASSESSMENT & PLAN 1. Abdominal pain: Initially felt could be related to peritonitis presently suspicion if more otward gastriti s. As per ID note they were stopping antbx, but presently antbx still ordered, Will discuss with them. 2. End-stage renal disease: Continue peritoneal dialysis. 3. Nausea and vomiting: Still present, reports the phenergan helped the most, will stop the reglan and order phener lamin and c/w zofran. 3.5 gastritis: As per nephrology pt should not take the carafate as has alluminum in it. Pt would like ph energan as this seems to help the nausea. Await the h pylori Results. 3.5 Constipation: Per prior notes discussed with GI who advised go lytely but patient did not tolerate it s o they were to start lactulose 4. Right ovarian hemorrhagic cyst: Outpatient followup with [employer]TERIOR DES[employer]. 5. Leukocytosis: improved Recent Labs Lab 09/11/17 0556 09/10/17 0606 09/09/17 1022 WBC 10.22 10.63 11.31* HGB 11.8 11.6 11.1* HCT 34.9 34.9 32.2* PLT 333 305 289 6. Hypokalemia: Defer to nephrology for further management. Presently I see ongoing replacement. 7. DVT prophylaxis. Heparin. Code Status: Full Code BRANDIN CORTEZ MD 09/11/2017 8:34 AM onversion Transac tion, Provider Unknown - 09/11/2017 8:23 AM PDTFormatting of this note might be different f rom the original. Pharmacy Note by Adenike Fan RPH at 09/11/17822 Author: Adenike Fan RPH Service: Pharmacy Author Type: Pharmacist Filed: 09/11/17822 Date of Service: 09/11/17822 Status: Signed Skilled Nursing Case Manager: Adenike Fan RPH (Pharmacist) Vancomycin Monitoring Day 5 Pharmacy Dosing Scr = 13 WBC = 10.22 PD patient The Vanco Random this AM was 18.14 (15-20 mcg/ml). Sent Vanco 1gm for level less than 20 mcg/ml. Pharmacist; ADENIKE FAN 09/11/2017 8:23 AM Cesar Swann i, MD - 09/10/2017 1:49 PM PDTFormatting of this note might be different fro m the original. Progress Notes by Cesar Gatica MD at 09/10/17 Author: Cesar Gatica MD Service: Hospitalist Author Type: Physician Filed: 09/10/17 8152 Date of Service: 09/10/171348 Status: Signed Skilled Nursing Case Manager: Cesar Gatica MD (Physician) [facility]: Hospitalist Progress Note Hospital Day: LOS: 3 days SUBJECTIVE Patient Summary: Has ESRD on PD admitted for abd pain nausea vomiting and hiccups. PD fluid is suspicious for infection. On abx.ID following. Also spoke with GI who advised hugo fate and golyetely for constipation. Patient did not tolerate golytely so was switched to la ctulose. Dr Bernstein plans to do colonscopy today. Events Overnight: Patient reports improvement in abd pain Still nauseous Scheduled Medications amLODIPine 2.5 mg Oral Daily cefTAZidime 500 mg Intravenous Daily diazepam 5 mg Intravenous Once heparin (porcine) 5000 unit/0.5mL 5,000 Units Subcutaneous 2 times per day lactulose 20 g Oral TID lidocaine buffered 1% 0.5 mL Intradermal Once pantoprazole 40 mg Oral BID AC potassium chloride SA 20 mEq Oral TID sevelamer 1,600 mg Oral TID WC sodium chloride (PF) 10 mL Intravenous Q8H vancomycin 1,000 mg Intravenous See Admin Instructions Continuous Infusions OBJECTIVE Vital Signs: BP 126/82 (BP Location: Left upper arm) | Pulse 86 | Temp 98.6 F (37 C) (Oral) | Res p 18 | Ht 1.575 m (5' 2") | Wt 72 kg (158 lb 11.7 oz) | SpO2 96% | ? No | BMI 29.03 kg/m Physical Exam General Appearance: awake, alert, oriented, in no acute distress Eyes: No gross abnormalities. Neck: neck- supple, no mass, non-tender Lungs: Normal expansion. Clear to auscultation. No rales, rhonchi, or wheezing. Abdomen: Soft, non-tender, normal bowel sounds. No bruits, organomegaly or masses. Extremities: pulses present in all extremities DATA Recent Labs Lab 09/10/17 0606 09/09/17 1022 09/08/17 0452 WBC 10.63 11.31* 10.54 HGB 11.6 11.1* 10.5* HCT 34.9 32.2* 31.1* PLT 305 289 237 NEUTOPHILPCT 78.69 81.02 77.18 MONOPCT 7.95 5.49 7.68 Recent Labs Lab 09/10/17 0606 09/09/17 0555 09/08/17 0452 NA 139 136 136 K 3.6 2.9* 3.0* CL 98* 96* 96* CO2 29 26 29 BUN 28* 31* 35* CREATININE 13* 14* 14* PROT 7.2 6.5 6.5 BILITOT 0.3 0.4 0.4 ALT 15 14 12 AST 16 16 11 Phosphorus: Lab Results Component Value Date PHOS 3.9 09/10/2017 Invalid input(s): LABALBU Recent Labs Lab 09/10/17 0606 09/08/17 0452 MG 2.1 2.0 No results for input(s): AMYLASE in the last 168 hours. No results for input(s): PHART, PO2ART, EEQ5ZWY, H9QAJFHR, BEART in the last 168 hours. No results for input(s): APTT, INR, PTT in the last 168 hours. No results for input(s): TSH, T3FREE, FREET4 in the last 168 hours. No results for input(s): CKTOTAL, TROPONINI, TROPONINT, CKMBINDEX in the last 168 hours. Radiology Ultrasound Pelvis, Non- Result Date: 09/07/2017 1. There is a complex multiseptated 3.8 x 3.5 x 3.1 cm lesion within the right ovary. This may represent a hemorrhagic cyst or endometrioma. Based on consensus guidelines, follow-up p elvic ultrasound recommended at 6 weeks. 2. Possible 1.4 cm right-sided paraovarian cyst. At tention on follow-up exam recommended. RADIA Electronically signed by Star Boyd MD on O ct 2016 3:38AM Referring Provider Line: [phone] ID: [id number] Ct Abdomen Pelvis With Iv Contrast Result Date: 09/07/2017 1. Heterogeneous somewhat complex appearing right adnexal abnormality measuring 4.9 x 4.5 c m (image 70 series 3), probably a hemorrhagic ovarian cyst. Further assessment recommended w ith pelvic ultrasound. 2. Again seen is a 1.3 cm left adrenal nodule, difficult to accuratel y characterize. No significant change from the prior 01/22/2017 study. Follow-up adrenal pro tocol CT recommended at January 2018. RADIA Electronically signed by Star Boyd MD on Sep 07 2017 1:06AM Referring Provider Line: [phone] ID: [id number] Ultrasound Abdomen, Gallbladder Result Date: 09/06/2017 Mildly distended gallbladder without evidence of cholelithiasis or acute cholecystitis. No bile duct obstruction. RADIA Electronically signed by Stepan Wiggins on Sep 06 2017 11: 45PM Referring Provider Line: [phone] ID: [id number] PROBLEM LIST Principal Problem: Epigastric pain Active Problems: Gastroesophageal reflux disease without esophagitis Peritonitis associated with peritoneal dialysis (HCC) ESRD on peritoneal dialysis Hypokalemia Morbid obesity due to excess calories (HCC) Nausea with vomiting Hypoalbuminemia Right ovarian cyst Leukocytosis Intractable hiccups Hypercalcemia Resolved Problems: * No resolved hospital problems. * ASSESSMENT & PLAN 1. Abdominal pain could be related to peritonitis. Continue antibiotics. ID consulted. Rush ocampo culture report. 2. End-stage renal disease. Continue peritoneal dialysis. 3. Nausea and vomiting, improving. Added gianni Bernstein to do EGD 3b Constipation Discussed with GI who advised go lytely but patient did not tolerate it so will start lactulose 4. Right ovarian hemorrhagic cyst. Outpatient followup with [facility] DES[facility]. 5. Leukocytosis, improved after antibiotics. 6. Hypokalemia. Defer to nephrology for further management. 7. DVT prophylaxis. Heparin. Code Status: Full Code Cesar Gatica MD 09/10/2017 1:49 PM Viri Moreno MD - 09/10/2017 10:28 AM PDT Progress Notes by Amrik Reyna MD at 09/10/17 1028 Author: Amrik Reyna MD Service: Nephrology Author Type: Physician Filed: 09/10/17 1034 Date of Service: 09/10/17 1028 Status: Signed Skilled Nursing Case Manager: Amrik Reyna MD (Physician) PCP : [facility] LOS: 3 days Ramona Oconnor is a 37 y.o. 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 She is known to me from a previous admission 01/2017 when she was admitted with peritoniti s. She is now admitted with recurrent nausea/upper abdominal pain going on for a couple of day s. Nausea predates the pain and she has been having nausea for a couple of weeks and apparen ho at her monthly meeting with Dr. Chi was advised GI evaluation. Beginning Friday she began to have upper abdominal pain/progressive/severe/associated with severe nausea and without any relief. She has been constipated but denied any cloudy periton eal fluid during PD. She denied any fever/chills. In ED she was hemodynamically stable with no fever/tachycardia/bradycardia. BP was on the h igher side. Imaging with Ultrasound Pelvis 09/07/2017 showed a complex multiseptated 3.8 x 3.5 x 3.1 cm lesion within the right ovary. 2. Possible 1.4 cm right-sided paraovarian cyst. Ct Abdomen Pelvis With Iv Contrast 09/07/2017 showed heterogeneous somewhat complex appeari ng right adnexal abnormality measuring 4.9 x 4.5 cm (image 70 series 3), probably a hemorrha gic ovarian cyst; 1.3 cm left adrenal nodule, difficult to accurately characterize. No signi ficant change from the prior 01/22/2017 study. Follow-up adrenal protocol CT recommended at January 2018. Ultrasound Abdomen, Gallbladder 09/06/2017 showed mildly distended gallbladder without evid ence of cholelithiasis or acute cholecystitis. No bile duct obstruction. Lab work up showed mild leucocytosis with WBC count of 15.75 and hypokalemia with K of 3.4 and hypercalcemia (Ca of 10.3 with albumin of 2.7). Lipase was normal at 199. Lactate was quite low at 1. Pro calcitonin level was elevated at 1.52 from 09/07/17. PD fluid subsequently showed a cell count of 127 with 56% neutrophils. Gram stain was -. Nephrology consultation was requested by Dr. Gates for PD and given concern with periton itis. She was seen with her mother. 09/08/17 09/09/17 09/10/17 She is seen with her mother. She continues to have nausea. She could not tolerate PO lactulose. She is NPO awaiting endo scopy today. She has not had a BM since admission which she blamed on not being able to keep anything do wn. She feels her nausea/vomiting/abdominal pain are improved. She had uncomplicated PD ON. There are no documented episodes of fever, chills, shortness of breath, chest pain, cough. She could not tolerate golytely prep. ROS: As in History of Present Illness. 7 area ROS was done and was otherwise negative. Examination: Constitutional: Alert, awake, oriented lying flat in bed in comfortably. No asterixis.. HEENT: Thick neck without JVD, non- icteric sclera. Cardiovascular: S1 soft. No S3. No pericardial rub. LUNGS:: Effort fair. Scattered rales at bases. Abdominal: Minimal tenderness without guarding epigastric region. No distension and no mas s. No rebound tenderness and no guarding. PD [...] 10/25/15 showed normal sized kidneys. 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 Primary accounting systems analyst is Dr. Chi Essential HTN Anemia of chronic renal failure Secondary hyperparathyroidism Family/social history: She lives at home and is a former smoker. Vital Signs: BP 186/88 (BP Location: Left upper arm) | Pulse 89 | Temp 98.2 F (36.8 C) (Oral) | R enmnauel 18 | Ht 1.575 m (5' 2") | Wt 72 kg (158 lb 11.7 oz) | SpO2 95% | ? No | BMI 29.03 kg/m Data evaluation: Lab Results Component Value Date BUN 28 (H) 09/10/2017 CREATININE 13 (H) 09/10/2017 EGFR 3 (L) 09/10/2017 NA 139 09/10/2017 K 3.6 09/10/2017 CL 98 (L) 09/10/2017 CO2 29 09/10/2017 CA 8.7 09/10/2017 PHOS 3.9 09/10/2017 MG 2.1 09/10/2017 ALB 2.3 (L) 09/10/2017 HGB 11.6 09/10/2017 Assessment and Recommendations: 1. ESRD on PD 2. PD associated peritonitis 3. Hypoalbuminemia 4. Borderline Hypokalemia 5. Anemia of chronic kidney disease Based on diagnostic criteria I would err on the side of diagnosing and treating peritonitis . As per ISPD guidelines peritonitis should always be diagnosed when at least 2 of the follow ing are present: (1) clinical features consistent with peritonitis, i.e. abdominal pain and/ or cloudy dialysis effluent; (2) dialysis effluent white cell count > 100/L or > 0.1 10 9/L (after a dwell time of at least 2 hours), with > 50% polymorphonuclear; and (3) positive dialysis effluent culture (1C). Given that she was performing APD cell counts would be expectedly lower than somebody perfo rming CAPD. While her abdominal pain is not classical for peritonitis and she did not have cloudy efflu ent/positive culture she did have elevated pro calcitonin and leucocytosis without any alter new [place] diagnosis. Clinically she improved with improved nausea/abdominal pain after empiric administration of vancomycin and ceftazidime. It is certainly possible she has 2 diagnoses with a separate UGI pathology and D/D would in clude gastritis/gastric ulceration. She has manifested mild normocytic anemia. PD fluid culture from 09/07/17 remains -. Vancomycin trough level 09/10/17 is 22.4. She had uncomplicated PD with UF of 1258 ml. Hypercalcemia by itself could also cause her symptoms. Hypercalcemia has improved. PTH is a ppropriately suppressed at 23.4 with low vitamin D level of 26 from 09/07/17. She is clinically euvolemic. Blood pressure is labile She is tolerating PD reasonably well using current access. There is no clear indication of PD catheter removal (no clear evidence of tunnel tract infection). She can continue PD using her usual prescription of 10 hours with 5 cycles of 2 L tonigh t using mix of 1.5% and 2.5% dianeal solution. We will continue empiric broad spectrum Abx with vancomycin and ceftazidime and follow u p PD fluid culture. Pharmacy is managing vancomycin dosing. Replace K to a target of 4 to 4.5 to reduce cardiac irritability. Sucralfate should not be administered (contains aluminum which will cause adynamic bone dis ease and neurological complications). Continue PPI. FU EGD. Diet: 1 gm PO4 restricted diet. Dose all meds for an eGFR of less than 15 ml/min/1.73 m2. No use of NSAIDs (including MENDES 2 inhibitors). No use of Magnesium or aluminum containing antacids. No use of Magnesium or phosphorus containing laxatives No Fluid restriction Strict I/O Daily weights. Keep in + balance. Plan of care was discussed with Dr. Gatica. AMRIK REYNA MD 09/10/2017 Portions of my previous notes have been carried over for continuity of care. She was seen earlier in the day and charting was completed later after rounds. Dictation software, was [employer], used which may contain error for similar sounding words deja n after review. Personal communication is requested for any clarification. Prognosis is guarded in view of multiple comorbid illnesses and ESRD amLODIPine 2.5 mg Oral Daily cefTAZidime 500 mg Intravenous Daily diazepam 5 mg Intravenous Once heparin (porcine) 5000 unit/0.5mL 5,000 Units Subcutaneous 2 times per day lactulose 20 g Oral TID lidocaine buffered 1% 0.5 mL Intradermal Once pantoprazole 40 mg Oral BID AC potassium chloride SA 20 mEq Oral TID sevelamer 1,600 mg Oral TID WC sodium chloride (PF) 10 mL Intravenous Q8H vancomycin 1,000 mg Intravenous See Admin Instructions oJose C crandall DO - 1 11/10/2016 9:13 AM PDT Progress Notes by Jose C Kaye DO at 09/10/17912 Author: Jose C Kaye DO Service: (none) Author Type: Physician Filed: 09/10/17945 Date of Service: 09/10/17912 Status: Signed Skilled Nursing Case Manager: Jose C Kaye DO (Physician) [facility]: Infectious Disease Progress Note Hospital Day: LOS: 3 days Post-Op Day: * No surgery found * SUBJECTIVE Patient Summary: 37 y.o. female with significant past medical history of end-stage renal disease on peritoneal dialysis who was admitted in January of this year for an episode o f peritonitis who presents with several weeks of worsening persistent abdominal pain. At the time of admission, clinical findings were most suggestive of peritonitis. A sample was greg ected from her peritoneal dialysate, following which she was placed empirically on Fortaz an d vancomycin. The patient primarily reports pain in the upper abdomen, mostly in the epigast zainab area. This is been present for several weeks, and she had been recommended to undergo an upper endoscopy as an outpatient, although had not yet been able to schedule the procedure. CC: Abdominal pain Chart reviewed: No new events. Subjective The patient reports that her epigastric pain is about the same, no change. The patient scarlett es any fevers or chills. ROS No fever, chills sweats. No diarrhea. No rashes or pruritis. No oral pain. Scheduled Medications amLODIPine 2.5 mg Oral Daily cefTAZidime 500 mg Intravenous Daily diazepam 5 mg Intravenous Once heparin (porcine) 5000 unit/0.5mL 5,000 Units Subcutaneous 2 times per day lactulose 20 g Oral TID lidocaine buffered 1% 0.5 mL Intradermal Once pantoprazole 40 mg Oral BID AC potassium chloride SA 20 mEq Oral TID sevelamer 1,600 mg Oral TID WC sodium chloride (PF) 10 mL Intravenous Q8H vancomycin 1,000 mg Intravenous See Admin Instructions Continuous Infusions PRN Medications acetaminophen OR acetaminophen, metoclopramide, morphine OR morphine OR morphin e, ondansetron, polyethylene glycol, promethazine, zolpidem OBJECTIVE Vital Signs: BP 186/88 (BP Location: Left upper arm) | Pulse 89 | Temp 98.2 F (36.8 C) (Oral) | R enmanuel 18 | Ht 1.575 m (5' 2") | Wt 72 kg (158 lb 11.7 oz) | SpO2 95% | ? No | BMI 29.03 kg/m Temp (24hrs), Av.3 F (36.8 C), Min:98.1 F (36.7 C), Max:98.8 F (37.1 C) Exam: Const: Vitals reviewed. No acute distress Skin: No rashes, no edema ENT: No thrush. Lungs: CTAB, no rales or wheezes Heart: RRR, no murmur Abd: soft, moderate epigastric tenderness, + bowel sounds DATA CBC: Lab Results Component Value Date WBC 10.63 09/10/2017 RBC 4.05 09/10/2017 HGB 11.6 09/10/2017 HCT 34.9 09/10/2017 MCV 86.1 09/10/2017 MCH 28.6 09/10/2017 MCHC 33.2 09/10/2017 RDW 44.6 09/10/2017 PLT 305 09/10/2017 MPV 8.4 09/10/2017 DIFFTYPE AUTOMATED 09/10/2017 CMP: Lab Results Component Value Date NA 139 09/10/2017 K 3.6 09/10/2017 CL 98 (L) 09/10/2017 CO2 29 09/10/2017 ANIONGAP 15 09/10/2017 GLUF 95 09/10/2017 BUN 28 (H) 09/10/2017 CREATININE 13 (H) 09/10/2017 BCR 2 09/10/2017 CA 8.7 09/10/2017 CA 9.0 09/07/2017 PROT 7.2 09/10/2017 ALB 2.3 (L) 09/10/2017 GLOB 4.9 09/10/2017 BILITOT 0.3 09/10/2017 ALP 96 09/10/2017 AST 16 09/10/2017 ALT 15 09/10/2017 EGFR 3 (L) 09/10/2017 Microbiology: Peritoneal fluid culture is pending. Blood cultures are pending. Peritoneal f luid cell count was 127 with 56 percent neutrophils. PROBLEM LIST Principal Problem: Epigastric pain Active Problems: Gastroesophageal reflux disease without esophagitis Peritonitis associated with peritoneal dialysis (HCC) ESRD on peritoneal dialysis Hypokalemia Morbid obesity due to excess calories (HCC) Nausea with vomiting Hypoalbuminemia Right ovarian cyst Leukocytosis Intractable hiccups Hypercalcemia ASSESSMENT & PLAN Peritonitis associated with peritoneal dialysis / Leukocytosis (HCC) (01/24/2017) The patient's laboratory assessment from peritoneal fluid does not meet criteria for beba tonitis, although can be somewhat confounded by ongoing peritoneal dialysis which will decre ase the cell counts. Leukocytosis has improved with empiric antibiotics, will continue while awaiting upper endoscopy. ESRD on peritoneal dialysis (06/04/2017) Antibiotics have been dosed to a GFR of 30, pharmacy adjusting vancomycin per levels, For anabel should continue at a dose of 500 mg q day 24 hours. Right ovarian cyst (09/07/2017) Note findings on CT scan to suggest secondary infection, does not correlate with the loca tion of the patient's current pain. Code Status: Full Code JOSE C KAYE DO 09/10/2017 onversion Transaction , Provider Unknown - 09/10/2017 8:33 AM PDT Pharmacy Note by Adenike Fan RPH at 09/10/17832 Author: Adenike Fan RPH Service: Pharmacy Author Type: Pharmacist Filed: 09/10/17832 Date of Service: 09/10/17832 Status: Signed Skilled Nursing Case Manager: Adenike Fan RPH (Pharmacist) Vancomycin Monitoring Day 4 Pharmacy Dosing Scr = 13 WBC = 10.63 Vanco Random at 0606 this AM is 22.4 mcg/ml (15-20 mcg/ml) This is a PD patient. No dose for level > 20 mcg/ml. INDICATION: Intra-abdominal infection; Peritonitis Phamacist; ADENIKE FAN 09/10/2017 8:33 AM Cesar Swann i, MD - 09/09/2017 12:45 PM PDTFormatting of this note might be different fro m the original. Progress Notes by Cesar Gatica MD at 09/09/17 3599 Author: Cesar Gatica MD Service: Hospitalist Author Type: Physician Filed: 09/09/17 3153 Date of Service: 09/09/17 0559 Status: Addendum Skilled Nursing Case Manager: Cesar Gatica MD (Physician) Related Notes: Original Note by Cesar Gatica MD (Physician) filed at 09/09/17 5370 [facility]: Hospitalist Progress Note Hospital Day: LOS: 2 days SUBJECTIVE Patient Summary: Has ESRD on PD admitted for abd pain nausea vomiting and hiccups. PD fluid is suspicious for infection. On abx.ID following. Also spoke with GI who advised hugo fate and golyetely for constipation. Patient did not tolerate golytely so was switched to la ctulose. Home tomorrow Events Overnight: Patient reports improvement in abd pain Nausea and hiccups better, D id not tolerate go lytely. Scheduled Medications amLODIPine 2.5 mg Oral Daily cefTAZidime 500 mg Intravenous Daily diazepam 5 mg Intravenous Once heparin (porcine) 5000 unit/0.5mL 5,000 Units Subcutaneous 2 times per day lactulose 20 g Oral TID lidocaine buffered 1% 0.5 mL Intradermal Once pantoprazole 40 mg Oral BID AC potassium chloride SA 20 mEq Oral TID sevelamer 1,600 mg Oral TID WC sodium chloride (PF) 10 mL Intravenous Q8H vancomycin 1,000 mg Intravenous See Admin Instructions Continuous Infusions OBJECTIVE Vital Signs: BP 138/86 (BP Location: Right upper arm) | Pulse 91 | Temp 98.5 F (36.9 C) (Oral) | Resp 18 | Ht 1.575 m (5' 2") | Wt 71.4 kg (157 lb 6.5 oz) | SpO2 97% | ? No | BMI 28.79 kg/m Physical Exam General Appearance: awake, alert, oriented, in no acute distress Eyes: No gross abnormalities. Neck: neck- supple, no mass, non-tender Lungs: Normal expansion. Clear to auscultation. No rales, rhonchi, or wheezing. Abdomen: Soft, non-tender, normal bowel sounds. No bruits, organomegaly or masses. Extremities: pulses present in all extremities DATA Recent Labs Lab 09/09/17 1022 09/08/17 0452 09/06/17 2146 WBC 11.31* 10.54 15.75* HGB 11.1* 10.5* 12.0 HCT 32.2* 31.1* 34.3 PLT 289 237 311 NEUTOPHILPCT 81.02 77.18 82.42 MONOPCT 5.49 7.68 5.56 Recent Labs Lab 09/09/17 0555 09/08/17 0452 09/06/17 2146 NA 136 136 135 K 2.9* 3.0* 3.4* CL 96* 96* 96* CO2 26 29 26 BUN 31* 35* 40* CREATININE 14* 14* 14* PROT 6.5 6.5 7.5 BILITOT 0.4 0.4 0.4 ALT 14 12 16 AST 16 11 11 Phosphorus: Lab Results Component Value Date PHOS 3.9 09/09/2017 Invalid input(s): LABALBU Recent Labs Lab 09/08/17 0452 MG 2.0 No results for input(s): AMYLASE in the last 168 hours. No results for input(s): PHART, PO2ART, UXA5RJB, M4KDMXID, BEART in the last 168 hours. No results for input(s): APTT, INR, PTT in the last 168 hours. No results for input(s): TSH, T3FREE, FREET4 in the last 168 hours. No results for input(s): CKTOTAL, TROPONINI, TROPONINT, CKMBINDEX in the last 168 hours. Radiology Ultrasound Pelvis, Non- Result Date: 09/07/2017 1. There is a complex multiseptated 3.8 x 3.5 x 3.1 cm lesion within the right ovary. This may represent a hemorrhagic cyst or endometrioma. Based on consensus guidelines, follow-up p elvic ultrasound recommended at 6 weeks. 2. Possible 1.4 cm right-sided paraovarian cyst. At tention on follow-up exam recommended. RAD[facility] Electronically signed by Star Boyd MD on O ct 2016 3:38AM Referring Provider Line: [phone] ID: [id number] Ct Abdomen Pelvis With Iv Contrast Result Date: 09/07/2017 1. Heterogeneous somewhat complex appearing right adnexal abnormality measuring 4.9 x 4.5 c m (image 70 series 3), probably a hemorrhagic ovarian cyst. Further assessment recommended w ith pelvic ultrasound. 2. Again seen is a 1.3 cm left adrenal nodule, difficult to accuratel y characterize. No significant change from the prior 01/22/2017 study. Follow-up adrenal pro tocol CT recommended at January 2018. RADIA Electronically signed by Star Boyd MD on Sep 07 2017 1:06AM Referring Provider Line: [phone] ID: [id number] Ultrasound Abdomen, Gallbladder Result Date: 09/06/2017 Mildly distended gallbladder without evidence of cholelithiasis or acute cholecystitis. No bile duct obstruction. RADIA Electronically signed by Stepan Wiggins on Sep 06 2017 11: 45PM Referring Provider Line: [phone] ID: [id number] PROBLEM LIST Principal Problem: Epigastric pain Active Problems: Gastroesophageal reflux disease without esophagitis Peritonitis associated with peritoneal dialysis (HCC) ESRD on peritoneal dialysis Hypokalemia Morbid obesity due to excess calories (HCC) Nausea with vomiting Hypoalbuminemia Right ovarian cyst Leukocytosis Intractable hiccups Hypercalcemia Resolved Problems: * No resolved hospital problems. * ASSESSMENT & PLAN 1. Abdominal pain could be related to peritonitis. Continue antibiotics. ID consulted. Rush ocampo culture report. 2. End-stage renal disease. Continue peritoneal dialysis. 3. Nausea and vomiting, improving. Added carfate 3b Constipation Discussed with GI who advised go lytely but patient did not tolerate it so will start lactulose 4. Right ovarian hemorrhagic cyst. Outpatient followup with EXTERIOR DESIGNER. 5. Leukocytosis, improved after antibiotics. 6. Hypokalemia. Defer to nephrology for further management. 7. DVT prophylaxis. Heparin. Code Status: Full Code Cesar Gatica MD 09/09/2017 12:46 PM onversion Tr ansaction, Provider Unknown - 09/09/2017 11:34 AM PDTFormatting of this note might be differ ent from the original. Progress Notes by Sheila Tony RPH at 09/09/171133 Author: Sheila Tony RPH Service: Pharmacy Author Type: Pharmacist Filed: 09/09/171133 Date of Service: 09/09/171133 Status: Signed Skilled Nursing Case Manager: Sheila Tony RPH (Pharmacist) Vancomycin Monitoring Day 3 Clinician Dosing: Pharmacy Dosing SCr: 14mg/dL Est CrCl: 5mL/min WBC: 11.31K/uL Recent Trough level: 25.01 mcg/mL Drawn: 09/09/2017 with AM labs. Random daily troughs ord ered as patient is on peritoneal dialysis Plan per protocol: No dose indicated for today as trough is > 20mcg/mL. Will administer 1gm vancomycin IVPB if random AM trough level is < 20mcg/mL. Order trough levels:Random trough drawn daily with AM labs. Next trough to be obtained on 11/10/2016. 09/09/2017 11:32 AM Pharmacist: Sheila Tony Amrik Moreno MD - 09/09/2017 11:24 AM PDTFormatting of this note might be different from the or iginal. Progress Notes by Amrik Reyna MD at 09/09/171123 Author: Amrik Reyna MD Service: Nephrology Author Type: Physician Filed: 09/09/171133 Date of Service: 09/09/171123 Status: Signed Skilled Nursing Case Manager: Amrik Reyna MD (Physician) PCP : [facility] LOS: 2 days Ramona Oconnor is a 37 y.o. 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 She is known to me from a previous admission 01/2017 when she was admitted with peritoniti s. She is now admitted with recurrent nausea/upper abdominal pain going on for a couple of day s. Nausea predates the pain and she has been having nausea for a couple of weeks and william teague at her monthly meeting with Dr. Chi was advised GI evaluation. Beginning Friday she began to have upper abdominal pain/progressive/severe/associated with severe nausea and without any relief. She has been constipated but denied any cloudy periton eal fluid during PD. She denied any fever/chills. In ED she was hemodynamically stable with no fever/tachycardia/bradycardia. BP was on the h igher side. Imaging with Ultrasound Pelvis 09/07/2017 showed a complex multiseptated 3.8 x 3.5 x 3.1 cm lesion within the right ovary. 2. Possible 1.4 cm right-sided paraovarian cyst. Ct Abdomen Pelvis With Iv Contrast 09/07/2017 showed heterogeneous somewhat complex appeari ng right adnexal abnormality measuring 4.9 x 4.5 cm (image 70 series 3), probably a hemorrha gic ovarian cyst; 1.3 cm left adrenal nodule, difficult to accurately characterize. No signi ficant change from the prior 01/22/2017 study. Follow-up adrenal protocol CT recommended at January 2018. Ultrasound Abdomen, Gallbladder 09/06/2017 showed mildly distended gallbladder without evid ence of cholelithiasis or acute cholecystitis. No bile duct obstruction. Lab work up showed mild leucocytosis with WBC count of 15.75 and hypokalemia with K of 3.4 and hypercalcemia (Ca of 10.3 with albumin of 2.7). Lipase was normal at 199. Lactate was quite low at 1. Pro calcitonin level was elevated at 1.52 from 09/07/17. PD fluid subsequently showed a cell count of 127 with 56% neutrophils. Gram stain was -. Nephrology consultation was requested by Dr. Gates for PD and given concern with periton itis. She was seen with her mother. 09/08/17 09/09/17 She is seen with her mother. She feels a bit better. She has not had a BM since admission (4 days now) which she blamed on not being able to tom p anything down. She feels her nausea/vomiting/abdominal pain are improved. She had uncomplicated PD ON. There are no documented episodes of fever, chills, shortness of breath, chest pain, cough. She could not tolerate golytely prep. ROS: As in History of Present Illness. 7 area ROS was done and was otherwise negative. Examination: Constitutional: Alert, awake, oriented lying flat in bed in comfortably. No asterixis.. HEENT: Thick neck without JVD, non- icteric sclera. Cardiovascular: S1 soft. No S3. No pericardial rub. LUNGS:: Effort fair. Scattered rales at bases. Abdominal: Minimal tenderness without guarding epigastric region. No distension and no mas s. No rebound tenderness and no guarding. PD [...] 10/25/15 showed normal sized kidneys. 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 Primary accounting systems analyst is Dr. Chi Essential HTN Anemia of chronic renal failure Secondary hyperparathyroidism Family/social history: She lives at home and is a former smoker. Vital Signs: BP 138/86 (BP Location: Right upper arm) | Pulse 91 | Temp 98.5 F (36.9 C) (Oral) | Resp 18 | Ht 1.575 m (5' 2") | Wt 71.4 kg (157 lb 6.5 oz) | SpO2 97% | ? No | BMI 28.79 kg/m Data evaluation: Lab Results Component Value Date BUN 31 (H) 09/09/2017 CREATININE 14 (H) 09/09/2017 EGFR 3 (L) 09/09/2017 NA 136 09/09/2017 K 2.9 (L) 09/09/2017 CL 96 (L) 09/09/2017 CO2 26 09/09/2017 CA 8.1 (L) 09/09/2017 PHOS 3.9 09/09/2017 MG 2.0 09/08/2017 ALB 2.1 (L) 09/09/2017 HGB 11.1 (L) 09/09/2017 Assessment and Recommendations: 1. ESRD on PD 2. PD associated peritonitis 3. Hypoalbuminemia 4. Hypokalemia 5. Anemia of chronic kidney disease Based on diagnostic criteria I would err on the side of diagnosing and treating peritonitis . As per ISPD guidelines peritonitis should always be diagnosed when at least 2 of the follow ing are present: (1) clinical features consistent with peritonitis, i.e. abdominal pain and/ or cloudy dialysis effluent; (2) dialysis effluent white cell count > 100/L or > 0.1 10 9/L (after a dwell time of at least 2 hours), with > 50% polymorphonuclear; and (3) positive dialysis effluent culture (1C). Given that she was performing APD cell counts would be expectedly lower than somebody perfo rming CAPD. While her abdominal pain is not classical for peritonitis and she did not have cloudy efflu ent/positive culture she did have elevated pro calcitonin and leucocytosis without any alter [place] diagnosis. Clinically she improved with improved nausea/abdominal pain after empiric administration of vancomycin and ceftazidime. It is certainly possible she has 2 diagnoses with a separate UGI pathology and D/D would in clude gastritis/gastric ulceration. She has manifested mild normocytic anemia. PD fluid culture from 09/07/17 remains -. She had uncomplicated PD with UF of 545 ml. Hypercalcemia by itself could also cause her symptoms. Hypercalcemia has improved. PTH is a ppropriately suppressed at 23.4 with low vitamin D level of 26 from 09/07/17. She is clinically euvolemic. Blood pressure is reasonably controlled. She is tolerating PD reasonably well using current access. There is no clear indication of PD catheter removal (no clear evidence of tunnel tract infection). She can continue PD using her usual prescription of 10 hours with 5 cycles of 2 L tonigh t using mix of 1.5% and 2.5% dianeal solution. We will continue empiric broad spectrum Abx with vancomycin and ceftazidime and follow u p PD fluid culture. Check vancomycin trough level. Replace K to a target of 4 to 4.5 to reduce cardiac irritability. Sucralfate should not be administered (contains aluminum which will cause adynamic bone dis ease and neurological complications). Diet: 1 gm PO4 restricted diet. Dose all meds for an eGFR of less than 15 ml/min/1.73 m2. No use of NSAIDs (including MENDES 2 inhibitors). No use of Magnesium or aluminum containing antacids. No use of Magnesium or phosphorus containing laxatives No Fluid restriction Strict I/O Daily weights. Keep in + balance. Plan of care was discussed with Dr. Gatica. AMRIK REYNA MD 09/09/2017 Portions of my previous notes have been carried over for continuity of care. She was seen earlier in the day and charting was completed later after rounds. Dictation software, was [employer], used which may contain error for similar sounding words deja n after review. Personal communication is requested for any clarification. Prognosis is guarded in view of multiple comorbid illnesses and ESRD amLODIPine 2.5 mg Oral Daily cefTAZidime 500 mg Intravenous Daily diazepam 5 mg Intravenous Once heparin (porcine) 5000 unit/0.5mL 5,000 Units Subcutaneous 2 times per day lactulose 20 g Oral TID lidocaine buffered 1% 0.5 mL Intradermal Once pantoprazole 40 mg Oral BID AC potassium chloride SA 20 mEq Oral TID sevelamer 1,600 mg Oral TID WC sodium chloride (PF) 10 mL Intravenous Q8H vancomycin 1,000 mg Intravenous See Admin Instructions Jose C Bar DO - 1 6:53 AM PDT Progress Notes by Jose C Kaye DO at 09/09/17652 Author: Jose C Kaye DO Service: (none) Author Type: Physician Filed: 09/09/1730 Date of Service: 09/09/17652 Status: Signed Skilled Nursing Case Manager: Jose C Kaye DO (Physician) [facility]: Infectious Disease Progress Note Hospital Day: LOS: 2 days Post-Op Day: * No surgery found * SUBJECTIVE Patient Summary: 37 y.o. female with significant past medical history of end-stage renal disease on peritoneal dialysis who was admitted in January of this year for an episode o f peritonitis who presents with several weeks of worsening persistent abdominal pain. At the time of admission, clinical findings were most suggestive of peritonitis. A sample was greg ected from her peritoneal dialysate, following which she was placed empirically on Fortaz an d vancomycin. The patient primarily reports pain in the upper abdomen, mostly in the epigast zainab area. This is been present for several weeks, and she had been recommended to undergo an upper endoscopy as an outpatient, although had not yet been able to schedule the procedure. CC: Abdominal pain Chart reviewed: No new events. Subjective The patient reports that her epigastric pain is slightly better today but she continues to have nausea and vomiting. No fevers or chills. Await gastroenterology consultation. ROS No fever, chills sweats. No diarrhea. No rashes or pruritis. No oral pain. Scheduled Medications amLODIPine 2.5 mg Oral Daily cefTAZidime 500 mg Intravenous Daily diazepam 5 mg Intravenous Once heparin (porcine) 5000 unit/0.5mL 5,000 Units Subcutaneous 2 times per day lidocaine buffered 1% 0.5 mL Intradermal Once pantoprazole 40 mg Oral BID AC potassium chloride SA 20 mEq Oral Daily sevelamer 1,600 mg Oral TID WC sodium chloride (PF) 10 mL Intravenous Q8H sucralfate 1 g Oral 4 times per day vancomycin 1,000 mg Intravenous See Admin Instructions Continuous Infusions PRN Medications acetaminophen OR acetaminophen, metoclopramide, morphine OR morphine OR morphin e, ondansetron, polyethylene glycol, promethazine, zolpidem OBJECTIVE Vital Signs: BP 138/81 (BP Location: Right upper arm) | Pulse 85 | Temp 98.6 F (37 C) (Oral) | Re sp 17 | Ht 1.575 m (5' 2") | Wt 73.5 kg (162 lb 0.6 oz) Comment: bedscale | SpO2 96% | Br eastfeeding? No | BMI 29.64 kg/m Temp (24hrs), Av.4 F (36.9 C), Min:98.2 F (36.8 C), Max:98.6 F (37 C) Exam: Const: Vitals reviewed. No acute distress Skin: No rashes, no edema ENT: No thrush. Lungs: CTAB, no rales or wheezes Heart: RRR, no murmur Abd: soft, moderate bilateral quadrant tenderness, + bowel sounds DATA CBC: Lab Results Component Value Date WBC 10.54 09/08/2017 RBC 3.62 (L) 09/08/2017 HGB 10.5 (L) 09/08/2017 HCT 31.1 (L) 09/08/2017 MCV 86.0 09/08/2017 MCH 29.0 09/08/2017 MCHC 33.8 09/08/2017 RDW 43.3 09/08/2017 PLT 237 09/08/2017 MPV 8.4 09/08/2017 DIFFTYPE AUTOMATED 09/08/2017 CMP: Lab Results Component Value Date NA 136 09/08/2017 K 3.0 (L) 09/08/2017 CL 96 (L) 09/08/2017 CO2 29 09/08/2017 ANIONGAP 14 09/08/2017 GLUF 88 09/08/2017 BUN 35 (H) 09/08/2017 CREATININE 14 (H) 09/08/2017 BCR 3 09/08/2017 CA 8.2 (L) 09/08/2017 CA 9.0 09/07/2017 PROT 6.5 09/08/2017 ALB 2.2 (L) 09/08/2017 GLOB 4.3 09/08/2017 BILITOT 0.4 09/08/2017 ALP 84 09/08/2017 AST 11 09/08/2017 ALT 12 09/08/2017 EGFR 3 (L) 09/08/2017 Microbiology: Peritoneal fluid culture is pending. Blood cultures are pending. Peritoneal f luid cell count was 127 with 56 percent neutrophils. PROBLEM LIST Principal Problem: Epigastric pain Active Problems: Gastroesophageal reflux disease without esophagitis Peritonitis associated with peritoneal dialysis (HCC) ESRD on peritoneal dialysis Hypokalemia Morbid obesity due to excess calories (HCC) Nausea with vomiting Hypoalbuminemia Right ovarian cyst Leukocytosis Intractable hiccups Hypercalcemia ASSESSMENT & PLAN Peritonitis associated with peritoneal dialysis / Leukocytosis (HCC) (01/24/2017) The patient's laboratory assessment from peritoneal fluid does not meet criteria for beba tonitis, although can be somewhat confounded by ongoing peritoneal dialysis which will decre ase the cell counts. Leukocytosis has improved with empiric antibiotics, will continue while awaiting gastroenterology consultation, suspect symptoms are more consistent with gastritis . ESRD on peritoneal dialysis (06/04/2017) Antibiotics have been dosed to a GFR of 30, pharmacy adjusting vancomycin per levels, For anabel should continue at a dose of 500 mg q day 24 hours. Right ovarian cyst (09/07/2017) Note findings on CT scan to suggest secondary infection, does not correlate with the loca tion of the patient's current pain. Code Status: Full Code JOSE C KAYE DO 09/09/2017 onversion Transaction , Provider Unknown - 09/08/2017 6:07 PM PDT Nurse Progress Note by Corine Bianchi RN at 09/08/171806 Author: Corine Bianchi RN Service: (none) Author Type: Registered Nurse Filed: 09/08/171833 Date of Service: 09/08/171806 Status: Signed Skilled Nursing Case Manager: Corine Bianchi RN (Registered Nurse) Patient unable to tolerate Golytely. Antiemetics given with no relief. Doctor Gavi esteban. onver patric Transaction, Provider Unknown - 09/08/2017 4:49 PM PDT Case Management by LUCILLE Grimaldo at 09/08/171648 Author: LUCILLE Grimaldo Service: (none) Author Type: Associate Professor Of Violin Filed: 09/08/171651 Date of Service: 09/08/171648 Status: Signed Skilled Nursing Case Manager: LUCILLE Grimaldo (Associate Professor Of Violin) Discharge planning: Pending PT/OT recommendation. left message for Lazaro Meadows with [facility] . Lazaro would like to be updated on discharge plan when known. onver patric Transaction, Provider Unknown - 09/08/2017 1:44 PM PDT Pharmacy Note by Alex South RPH at 09/08/17 9020 Author: Alex South RPH Service: Pharmacy Author Type: Pharmacist Filed: 09/08/17 7874 Date of Service: 09/08/171343 Status: Signed Skilled Nursing Case Manager: Alex South RPH (Pharmacist) Vancomycin day 2, will check daily random vancomycin levels starting 09/09 and dose 1gm IV if random level is less than 20 Cesar Swann i, MD - 09/08/2017 12:38 PM PDTFormatting of this note might be different fro m the original. Progress Notes by Cesar Gatica MD at 09/08/17 1238 Author: Cesar Gatica MD Service: Hospitalist Author Type: Physician Filed: 09/08/17 1423 Date of Service: 09/08/17 1239 Status: Signed Skilled Nursing Case Manager: Cesar Gatica MD (Physician) Related Notes: Original Note by Cesar Gatica MD (Physician) filed at 09/08/17 1240 [facility]: Hospitalist Progress Note Hospital Day: LOS: 1 day SUBJECTIVE Patient Summary: Events Overnight: Patient reports improvement in abd pain Nausea and hiccups better,Vo miting better Scheduled Medications amLODIPine 2.5 mg Oral Daily diazepam 5 mg Intravenous Once heparin (porcine) 5000 unit/0.5mL 5,000 Units Subcutaneous 2 times per day lidocaine buffered 1% 0.5 mL Intradermal Once pantoprazole 40 mg Oral BID AC polyethylene glycol 17 g Oral Daily potassium chloride SA 20 mEq Oral Daily sevelamer 1,600 mg Oral TID WC sodium chloride (PF) 10 mL Intravenous Q8H Continuous Infusions OBJECTIVE Vital Signs: BP 128/76 (BP Location: Left upper arm) | Pulse 94 | Temp 98.4 F (36.9 C) (Oral) | R enmanuel 16 | Ht 1.575 m (5' 2") | Wt 71 kg (156 lb 8.4 oz) | SpO2 97% | ? No | BMI 28.63 kg/m Physical Exam General Appearance: awake, alert, oriented, in no acute distress Eyes: No gross abnormalities. Neck: neck- supple, no mass, non-tender Lungs: Normal expansion. Clear to auscultation. No rales, rhonchi, or wheezing. Abdomen: Soft, non-tender, normal bowel sounds. No bruits, organomegaly or masses. Extremities: pulses present in all extremities DATA Recent Labs Lab 10/45109/06/17 2146 WBC 10.54 15.75* HGB 10.5* 12.0 HCT 31.1* 34.3 PLT 237 311 NEUTOPHILPCT 77.18 82.42 MONOPCT 7.68 5.56 Recent Labs Lab 09/08/172 09/06/17 2146 NA 136 135 K 3.0* 3.4* CL 96* 96* CO2 29 26 BUN 35* 40* CREATININE 14* 14* PROT 6.5 7.5 BILITOT 0.4 0.4 ALT 12 16 AST 11 11 Phosphorus: Lab Results Component Value Date PHOS 3.7 09/08/2017 Invalid input(s): LABALBU Recent Labs Lab 09/08/17451 MG 2.0 No results for input(s): AMYLASE in the last 168 hours. No results for input(s): PHART, PO2ART, YHF8QAU, Z8ZZWEHV, BEART in the last 168 hours. No results for input(s): APTT, INR, PTT in the last 168 hours. No results for input(s): TSH, T3FREE, FREET4 in the last 168 hours. No results for input(s): CKTOTAL, TROPONINI, TROPONINT, CKMBINDEX in the last 168 hours. Radiology Ultrasound Pelvis, Non- Result Date: 09/07/2017 1. There is a complex multiseptated 3.8 x 3.5 x 3.1 cm lesion within the right ovary. This may represent a hemorrhagic cyst or endometrioma. Based on consensus guidelines, follow-up p elvic ultrasound recommended at 6 weeks. 2. Possible 1.4 cm right-sided paraovarian cyst. At tention on follow-up exam recommended. RADIA Electronically signed by Star Boyd MD on O ct 2016 3:38AM Referring Provider Line: [phone] ID: [id number] Ct Abdomen Pelvis With Iv Contrast Result Date: 09/07/2017 1. Heterogeneous somewhat complex appearing right adnexal abnormality measuring 4.9 x 4.5 c m (image 70 series 3), probably a hemorrhagic ovarian cyst. Further assessment recommended w ith pelvic ultrasound. 2. Again seen is a 1.3 cm left adrenal nodule, difficult to accuratel y characterize. No significant change from the prior 01/22/2017 study. Follow-up adrenal pro tocol CT recommended at January 2018. RADIA Electronically signed by Star Boyd MD on Sep 07 2017 1:06AM Referring Provider Line: [phone] ID: [id number] Ultrasound Abdomen, Gallbladder Result Date: 09/06/2017 Mildly distended gallbladder without evidence of cholelithiasis or acute cholecystitis. No bile duct obstruction. RADIA Electronically signed by Stepan Wiggins on Sep 06 2017 11: 45PM Referring Provider Line: [phone] ID: [id number] PROBLEM LIST Principal Problem: Epigastric pain Active Problems: Gastroesophageal reflux disease without esophagitis Peritonitis associated with peritoneal dialysis (HCC) ESRD on peritoneal dialysis Hypokalemia Morbid obesity due to excess calories (HCC) Nausea with vomiting Hypoalbuminemia Right ovarian cyst Leukocytosis Intractable hiccups Hypercalcemia Resolved Problems: * No resolved hospital problems. * ASSESSMENT & PLAN 1. Abdominal pain could be related to peritonitis. Continue antibiotics. ID consulted. Rush ocampo culture report. 2. End-stage renal disease. Continue peritoneal dialysis. 3. Nausea and vomiting, improving. 4. Right ovarian hemorrhagic cyst. Outpatient followup with EXTERIOR DESIGNER. 5. Leukocytosis, improved after antibiotics. 6. Hypokalemia. Defer to nephrology for further management. 7. DVT prophylaxis. Heparin. Code Status: Full Code Cesar Gatica MD 09/08/2017 12:38 PM Viri Moreno MD - 09/08/2017 8:46 AM PDT Progress Notes by Amrik Reyna MD at 09/08/1754 Author: Amrik Reyna MD Service: Nephrology Author Type: Physician Filed: 09/08/17 1211 Date of Service: 09/08/17845 Status: Addendum Skilled Nursing Case Manager: Amrik Reyna MD (Physician) Related Notes: Original Note by Amrik Reyna MD (Physician) filed at 09/08/17 2638 PCP : [facility] LOS: 1 day Ramona Oconnor is a 37 y.o. 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 She is known to me from a previous admission 01/2017 when she was admitted with peritoniti s. She is now admitted with recurrent nausea/upper abdominal pain going on for a couple of day s. Nausea predates the pain and she has been having nausea for a couple of weeks and william teague at her monthly meeting with Dr. Chi was advised GI evaluation. Beginning Friday she began to have upper abdominal pain/progressive/severe/associated with severe nausea and without any relief. She has been constipated but denied any cloudy periton eal fluid during PD. She denied any fever/chills. In ED she was hemodynamically stable with no fever/tachycardia/bradycardia. BP was on the h igher side. Imaging with Ultrasound Pelvis 09/07/2017 showed a complex multiseptated 3.8 x 3.5 x 3.1 cm lesion within the right ovary. 2. Possible 1.4 cm right-sided paraovarian cyst. Ct Abdomen Pelvis With Iv Contrast 09/07/2017 showed heterogeneous somewhat complex appeari ng right adnexal abnormality measuring 4.9 x 4.5 cm (image 70 series 3), probably a hemorrha gic ovarian cyst; 1.3 cm left adrenal nodule, difficult to accurately characterize. No signi ficant change from the prior 01/22/2017 study. Follow-up adrenal protocol CT recommended at January 2018. Ultrasound Abdomen, Gallbladder 09/06/2017 showed mildly distended gallbladder without evid ence of cholelithiasis or acute cholecystitis. No bile duct obstruction. Lab work up showed mild leucocytosis with WBC count of 15.75 and hypokalemia with K of 3.4 and hypercalcemia (Ca of 10.3 with albumin of 2.7). Lipase was normal at 199. Lactate was quite low at 1. Pro calcitonin level was elevated at 1.52 from 09/07/17. PD fluid subsequently showed a cell count of 127 with 56% neutrophils. Gram stain was -. Nephrology consultation was requested by Dr. Gates for PD and given concern with periton itis. She was seen with her mother. 09/08/17 She is seen with her mother. She feels a bit better. She has not had a BM since admission (3 days now) which she blamed on not being able to tom p anything down. She feels her nausea/vomiting/abdominal pain are improved. She had uncomplicated PD ON. There are no documented episodes of fever, chills, nausea, vomiting, diarrhea, shortness of breath, chest pain, cough. ROS: As in History of Present Illness. 7 area ROS was done and was otherwise negative. Examination: Constitutional: Alert, awake, oriented lying flat in bed in comfortably. No asterixis. Morb idly obese. HEENT: Thick neck without JVD, non- icteric sclera. Cardiovascular: S1 soft. No S3. No pericardial rub. LUNGS:: Effort fair. Scattered rales at bases. Abdominal: Minimal tenderness without guarding epigastric region. No distension and no mas s. No rebound tenderness and no guarding. PD [...] 10/25/15 showed normal sized kidneys. 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 Primary accounting systems analyst is Dr. Chi Essential HTN Anemia of chronic renal failure Secondary hyperparathyroidism Family/social history: She lives at home and is a former smoker. Vital Signs: BP 142/89 (BP Location: Left upper arm) | Pulse 81 | Temp 98.8 F (37.1 C) (Oral) | R enmanuel 16 | Ht 1.575 m (5' 2") | Wt 71 kg (156 lb 8.4 oz) | SpO2 97% | ? No | BMI 28.63 kg/m Data evaluation: Lab Results Component Value Date BUN 35 (H) 09/08/2017 CREATININE 14 (H) 09/08/2017 EGFR 3 (L) 09/08/2017 NA 136 09/08/2017 K 3.0 (L) 09/08/2017 CL 96 (L) 09/08/2017 CO2 29 09/08/2017 CA 8.2 (L) 09/08/2017 PHOS 3.7 09/08/2017 MG 2.0 09/08/2017 ALB 2.2 (L) 09/08/2017 HGB 10.5 (L) 09/08/2017 Assessment and Recommendations: 1. ESRD on PD 2. PD associated peritonitis 3. Hypoalbuminemia 4. Hypokalemia 5. Anemia of chronic kidney disease Based on diagnostic criteria she has peritonitis with leukocytosis, elevated pro calcitonin .. Clinically she is improved with improved nausea/abdominal pain after empiric administrati on of vancomycin and ceftazidime yesterday. Leucocytosis has improved. She has manifested mild normocytic anemia. PD fluid culture from 09/07/17 remains -. She had uncomplicated PD with UF of 897 ml. Hypercalcemia by itself could also cause her symptoms. Hypercalcemia has improved. PTH is a ppropriately suppressed at 23.4 with low vitamin D level of 26 from 09/07/17. She is clinically euvolemic. Blood pressure is reasonably although not ideally controlled. She is tolerating PD reasonably well using current access. There is no clear indication of PD catheter removal (no clear evidence of tunnel tract infection). She can continue PD using her usual prescription of 10 hours with 5 cycles of 2 L tonigh t using mix of 1.5% and 2.5% dianeal solution. We will continue with empiric broad spectrum Abx with vancomycin and ceftazidime and fol low up PD fluid culture. Check vancomycin trough level is 96 hours. Replace K to a target of 4 to 4.5 to reduce cardiac irritability. Diet: 1 gm PO4 restricted diet. Dose all meds for an eGFR of less than 15 ml/min/1.73 m2. No use of NSAIDs (including MENDES 2 inhibitors). No use of Magnesium or aluminum containing antacids. No use of Magnesium or phosphorus containing laxatives No Fluid restriction Strict I/O Daily weights. Keep in + balance. Plan of care was discussed with Dr. Gatica. AMRIK REYNA MD 09/08/2017 Portions of my previous notes have been carried over for continuity of care. She was seen earlier in the day and charting was completed later after rounds. Dictation software, was [employer], used which may contain error for similar sounding words deja n after review. Personal communication is requested for any clarification. Prognosis is guarded in view of multiple comorbid illnesses and ESRD amLODIPine 2.5 mg Oral Daily diazepam 5 mg Intravenous Once heparin (porcine) 5000 unit/0.5mL 5,000 Units Subcutaneous 2 times per day lidocaine buffered 1% 0.5 mL Intradermal Once pantoprazole 40 mg Oral BID AC potassium chloride SA 20 mEq Oral Daily sevelamer 1,600 mg Oral TID WC sodium chloride (PF) 10 mL Intravenous Q8H onversion Transactio n, Provider Unknown - 09/07/2017 4:07 PM PDT Case Management by Grazyna Nails RN at 09/07/17 160 Author: Grazyna Nails RN Service: (none) Author Type: Registered Nurse Filed: 09/07/171611 Date of Service: 09/07/171606 Status: Signed Skilled Nursing Case Manager: Grazyna Nails RN (Registered Nurse) 09/07/17 160 Discharge Planning Evaluation Admitting Diagnosis intractable abdominal pain Readmission No Living Arrangements Spouse/significant other;Family members (pt resides w/spouse Julian and sister and family) Support Systems Parent;Family members;Spouse/significant other (CM spoke to pt mother Lyubov [phone]) Type of Residence Private residence House type House-1 story Bathrooms on 1st Floor 1-Full Independent with ADL's Yes Independent with Mobility Yes Home Care Services Yes Type of Home Care Services Attendant ([facility]) Mental Status Oriented (pt sleeping during assessment, CM spoke to pt mother ) Anticipated Discharge Plan Post Acute Care Needs Home Health Services ([facility] in place) Home Health Services Nursing;PT Resources Financial concerns No Transportation issues No Patient/Family concerns [place] [facility] Previous home health equipment No Vascular access device No Ostomy/Drains/Appliances Yes (pt has peritoneal dialysis) Anticipated Disposition Facility Type Home CM met with pt mother Lyubov [phone] and discussed discharge planning, Pt is a 37 y.o. , female resides w/spouse Jose C at pt sister and family home. Patient has peritoneal dialysi s nightly. Pt followed by [facility]. Patient is independent with ADL's and ambul ation. 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 No d/c needs reported via pt mother. Patient's PCP is: [facility] Patient's insurance: [employer] Coverage concerns: no Medication coverage/concerns: Rx Bedside Delivery: [facility] resources utilized / needed: pt has [facility] health Assistance in transportation: pt spouse to transport pt Identification of any specific education / training: TBD Barriers to Discharge / Alternative housing needed: no Anticipated DCP: pt likely to d/c home with spouse and family member assist Grazyna Nails RN CM Cesar Swann i, MD - 09/07/2017 12:36 PM PDTFormatting of this note might be different fro m the original. Progress Notes by Cesar Gatica MD at 09/07/17 1236 Author: Cesar Gatica MD Service: Hospitalist Author Type: Physician Filed: 09/07/17 1442 Date of Service: 09/07/17 1236 Status: Addendum Skilled Nursing Case Manager: Cesar Gatica MD (Physician) Related Notes: Original Note by Cesar Gatica MD (Physician) filed at 09/07/17 1237 Patient reports improvement in pain hiccups and nasuea. PD fluid not showing bacteria but b ased on cell count could be a sign of early infection. Discussed with Dr Reyna who advised vanc and ceftazidinme Cont PD Paulie Poe RPH - 09/07/2017 6:46 AM PDT Progress Notes by Paulie Read RPH at 09/07/17 06 Author: Paulie Read RPH Service: Pharmacy Author Type: Pharmacist Filed: 09/07/1787 Date of Service: 09/07/1746 Status: Signed Skilled Nursing Case Manager: Paulie Read [facility] (Pharmacist) Renal Dosing Monitoring: Ramona Oconnor 37 y.o. female Pharmacy dosing for renal function per Dr. Pate Plan per protocol: HD patient No medications need to be renally adjusted at this time Pharmacy will continue monitoring patient for appropriate dosing per renal function. 09/07/2017 6:46 AM Pharmacist: PAULIE READ documente d in this encounter H&P Notes Lukas Lynn MD - 09/07/2017 5:06 AM PDTFormatting of this note might be different f rom the original. H&P by ODALIS ColónR3 at 09/07/17 050 Author: AZALIA Colón Service: Hospitalist Author Type: Resident-Y2 Filed: 09/07/17 0525 Date of Service: 09/07/17505 Status: Attested Skilled Nursing Case Manager: ODALIS [email or web address] (Resident-Y3) Cosigner: Alexx Pate MD at 09/07/17 165 Attestation signed by Alexx Pate MD at 09/07/17 165 Patient seen, examined and chart reviewed, supervised residential mental health worker for this admission a nd attest to resident note. I personally saw and examined the patient I agree with 's assessment and plan. Service: Hospitalist Admission History & Physical Pt: Ramona Oconnor AGE/SEX: 37 y.o. female ROOM: 04/15 PCP: [facility] : 1980 TODAY'S DATE: 09/07/2017 Date of Admission: 09/06/2017 Chief Complaint: Abdominal pain History of Present Illness: The patient is a 37 y.o. female with a significant past medical history of ESRD on PD, HTN , and GERD who presents with Persistent abdominal pain. The patient states that appx 3 weeks ago she began to have epigastric/RUQ abdominal pain th at has been persistent. She describes the pain as a burning sensation, as if her abdomen wer e on fire. She states the pain occurs post prandially and waxes and wanes. The pain is 8/10 at its worse and 4/10 at baseline. She has not tried anything to treat the pain. She has sig nificant dry heaving and states she is unable to keep anything down and is having significan t nausea. The pain has worsened the last three days, prompting the visit to the ED.She has not eaten and has reportedly lost 17 lbs in the last three days. She has not had any hematemesis. She is anuric at baseline. She has not had any fevers or chills, no dyspepsia, no hematochezia, no CP. She was admitted in January of 2017 for peritonitis. In the ED she was noted to have leukocytosis and, as expected, very poor renal function. In itially she received a RUQ U/S, but that was unremarkable. The CT demonstrated what was thou ght to be a right adnexal cyst. Given this adnexal lesion, a pelvic U/S was performed which did indeed show what is thought to be a right adnexal cyst, but again, needs to be followed up. Dr. Reyna was contacted and stated he would have the production control analyst remove some fluid for evaluation around 0630. Given the nature of the patient's pain and her PD catheter and concern for peritonitis, she was admitted for further observation. Review of Systems: Review of Systems Constitutional: Positive for malaise/fatigue and weight loss. Negative for chills and fever . HENT: Negative for congestion and sore throat. Eyes: Negative for blurred vision. Respiratory: Negative for cough and shortness of breath. Cardiovascular: Negative for chest pain. Gastrointestinal: Positive for abdominal pain, nausea and vomiting. Negative for blood in s tool. Neurological: Negative for focal weakness and headaches. Comorbid Conditions: Active comorbid conditions include: - hypertension - renal disease, CKD (ESRD), with hematuria - obesity due to excess calories - a smoker - depression - GERD PMHx: Past Medical History Diagnosis Date Diverticulosis GERD (gastroesophageal reflux disease) Hyperphosphatemia 10/28/2015 Hypocalcemia 10/28/2015 Itching 10/28/2015 Metabolic acidosis 10/28/2015 Obesity Peritonitis associated with peritoneal dialysis (HCC) 01/24/2017 Uremia 10/28/2015 PSHx: Past Surgical History Procedure Laterality Date PERITONEAL CATHETER INSERTION N/A 10/28/2015 Procedure: LAPAROSCOPIC - PERITONEAL DIALYSIS CATH INSERTION; Surgeon: Mundo Ramos MD; Lo cation: [facility]; Service: Vascular; Laterality: N/A; Prior To admission Meds: Prior to Admission medications Medication Sig Start Date End Date Taking? Authorizing Provider ALPRAZolam (XANAX) 0.5 MG tablet Take 0.5 mg by mouth nightly as needed for Sleep. Histo rical Provider amLODIPine (NORVASC) 2.5 MG tablet Take 2.5 mg by mouth daily. Historical Provider ergocalciferol (DRISDOL) 73428 UNITS capsule Take 50,000 Units by mouth [...] needed for Nausea. 01/25/17 Shad Ba MD potassium chloride (K-DUR,KLOR-CON) 20 MEQ tablet Take 1 tablet by mouth daily. 06/05/1705/11 Jaxon Ko MD promethazine (PHENERGAN) 25 MG tablet Take 25 mg by mouth every 6 (six) hours as needed for Nausea. Historical Provider sevelamer (RENVELA) 800 MG tablet Take 2 tablets by mouth 3 (three) times daily with meals. 01/25/17 01/25/18 Shad Ba MD torsemide (DEMADEX) 20 MG tablet Take 20 mg by mouth daily. Historical Provider Allergies: No Known Allergies Family Hx: History reviewed. No pertinent family history. Social Hx: Social History Social History Marital status: Spouse name: N/A Number of children: N/A Years of education: N/A Occupational History Not on file. Social History Main Topics Smoking status: Former Smoker Packs/day: 0.25 Quit date: 10/10/2015 Smokeless tobacco: Never Used Alcohol use No Comment: occ Drug use: Types: Marijuana Comment: oil Sexual activity: Yes Partners: Male Other Topics Concern Not on file Social History Narrative No narrative on file Physical Exam: BP 144/80 (BP Location: Left upper arm) | Pulse 84 | Temp 98 F (36.7 C) | Resp 18 | Wt 86 kg (189 lb 9.5 oz) | SpO2 99% | BMI 34.68 kg/m No intake/output data recorded. Physical Exam Constitutional: Obese female lying in bed with significant central adiposity, of note, she did not appear t o be in any distress or pain until I entered the room HENT: Head: Normocephalic and atraumatic. Neck: No tracheal deviation present. Cardiovascular: Normal rate, regular rhythm, normal heart sounds and intact distal pulses. Pulmonary/Chest: Effort normal and breath sounds normal. No stridor. No respiratory distres s. Abdomina/Gl: Soft. She exhibits no distension. Reported TTP over the RUQ and RLQ, however patient did not have any grimacing or involuntar y guarding, PD catheter is in place and no noted erythema Neurological: She is alert. Skin: Skin is warm. No erythema. No pallor. Nursing note and vitals reviewed. Data: Recent Results (from the past 24 hour(s)) CBC with differential Collection Time: 09/06/17 9:46 PM Result Value Ref Range WBC 15.75 (H) 3.80 - 11.00 K/uL RBC 4.08 3.70 - 5.10 M/uL HGB 12.0 11.3 - 15.5 g/dL HCT 34.3 34.0 - 46.0 % MCV 84.2 80.0 - 100.0 fl MCH 29.5 27.0 - 34.0 pg MCHC 35.0 32.0 - 35.5 g/dL RDW SD 43.3 37 - 53 fl PLT 311 150 - 400 K/uL MPV 8.0 fl DIFF TYPE AUTOMATED NEUTROPHILS 82.42 % LYMPHOCYTES 10.82 % MONOCYTES 5.56 % EOSINOPHILS 0.48 % BASOPHILS 0.72 % NEUTROPHILS ABS 12.98 (H) 1.90 - 7.40 K/uL LYMPHOCYTES ABS 1.70 1.00 - 3.90 K/uL MONOCYTES ABS 0.88 (H) 0.00 - 0.80 K/uL EOSINOPHILS ABS 0.08 0.00 - 0.50 K/uL BASOPHILS ABS 0.11 (H) 0.00 - 0.10 K/uL Comprehensive metabolic panel Collection Time: 09/06/17 9:46 PM Result Value Ref Range SODIUM 135 135 - 145 mmol/L POTASSIUM 3.4 (L) 3.5 - 4.9 mmol/L CHLORIDE 96 (L) 99 - 109 mmol/L CO2 26 23 - 32 mmol/L ANION GAP AGAP 17 5 - 20 mmol/L GLUCOSE 99 65 - 99 mg/dL BUN 40 (H) 8 - 25 mg/dL CREATININE 14 (H) 0.50 - 1.00 mg/dL BUN/CREAT 3 CALCIUM 10.3 8.5 - 10.5 mg/dL TOTAL PROTEIN 7.5 6.3 - 8.2 g/dL Albumin 2.7 (L) 3.6 - 5.0 g/dL GLOBULIN 4.8 1.3 - 4.9 g/dL A/G 0.6 (L) 1.0 - 2.4 TBIL 0.4 0.1 - 1.5 mg/dL ALK PHOS 102 35 - 115 U/L AST 11 10 - 45 U/L ALT 16 10 - 65 U/L EGFR 3 (L) >60 mL/min/1.73m2 Lipase Collection Time: 09/06/17 9:46 PM Result Value Ref Range LIPASE 199 73 - 393 U/L Septic Lactic Acid Collection Time: 09/06/17 9:46 PM Result Value Ref Range LACTIC ACID 1.6 0.4 - 2.0 mmol/L Septic Lactic Acid Collection Time: 09/07/17 1:05 AM Result Value Ref Range LACTIC ACID 1.0 0.4 - 2.0 mmol/L IMAGING: Ultrasound Pelvis, Non- Result Date: 09/07/2017 EXAM: PELVIC ULTRASOUND EXAM DATE: 09/07/2017 02:37 AM. CLINICAL HISTORY: Ovarian lesion se en on prior CT, further assessment and characterization. COMPARISON: CT earlier today. TECH NIQUE: Realtime transvaginal pelvic scan performed to identify the uterus and adnexa and as an overview of other pelvic structures, with static image documentation. FINDINGS: LMP: 07/12. Uterus: Uterus is normal in position and normal in configuration. Uterus measures 7 .3 cm. No evident uterine masses. Endometrium: Endometrium measures 6.9 mm. No suspicious t hickening or vascularity. Cervix: No suspicious lesion. Small nabothian cyst. Right Ovary: T he right ovary measures 4.7 x 3.5 x 4.5 cm. There is a complex, multiseptated appearing lesi on measuring 3.8 x 3.5 x 3.1 cm. Normal blood flow to the ovary. Left Ovary: Obscured by bow el gas. Fluid: There is trace amount of fluid, within physiologic limits. Other: Apparent sm all paraovarian hypoechoic 1.4 cm structure adjacent to the right ovary. 1. There is a complex multiseptated 3.8 x 3.5 x 3.1 cm lesion within the right ovary. This may represent a hemorrhagic cyst or endometrioma. Based on consensus guidelines, follow-up p elvic ultrasound recommended at 6 weeks. 2. Possible 1.4 cm right-sided paraovarian cyst. At tention on follow-up exam recommended. RADIA Electronically signed by Star Boyd MD on O ct 2016 3:38AM Referring Provider Line: [phone] ID: [id number] Ct Abdomen Pelvis With Iv Contrast Result Date: 09/07/2017 EXAM: CT ABDOMEN AND PELVIS EXAM DATE: 09/07/2017 12:09 AM. CLINICAL HISTORY: Abdominal tatiana n. COMPARISONS: None. TECHNIQUE: Routine helical CT imaging was performed through the abdome n and pelvis. IV contrast: 70 mL Isovue-300. Enteric contrast: No. Reconstructions: Coronal and sagittal. In accordance with CT protocol optimization, one or more of the following dose reduction techniques were utilized for this exam: automated exposure control, adjustment of mA and/or KV based on patient size, or use of iterative reconstructive technique. FINDINGS: ABDOMEN: Liver: No significant abnormality. Stomach/Distal Esophagus: No significant abnorm ality. Gallbladder: No significant abnormality. Bile Ducts: No significant abnormality. Panc reas: No significant abnormality. Spleen: No significant abnormality. Kidneys: No solid appe aring lesion. No hydronephrosis. Adrenals: There is a small nodule within the left adrenal m easuring 13 mm (image 23 series 3). This is difficult to accurately characterize on this exa m. Bowel: No obstruction. Average fecal residual. Appendix: Normal. Lymph Nodes: No patholog ically enlarged nodes. Vasculature: Normal caliber aorta. Fluid: No significant free fluid. Abdominal Wall: No significant abnormality. Other: No significant abnormality. PELVIS: Uteru s and ovaries: There is a heterogeneous appearing right adnexal abnormality measuring 4.5 x 4.9 cm (image 70 series 3). Bladder: Decompressed, precluding assessment. Lymph Nodes: No pa thologically enlarged nodes. Fluid: No significant free fluid. Other: Peritoneal dialysis ca theter is looped within the anterior pelvis. BONES: No suspicious bony lesions. LOWER CHEST: No significant consolidation or effusion. 1. Heterogeneous somewhat complex appearing right adnexal abnormality measuring 4.9 x 4.5 c m (image 70 series 3), probably a hemorrhagic ovarian cyst. Further assessment recommended w ith pelvic ultrasound. 2. Again seen is a 1.3 cm left adrenal nodule, difficult to accuratel y characterize. No significant change from the prior 01/22/2017 study. Follow-up adrenal pro tocol CT recommended at January 2018. RADIA Electronically signed by Star Boyd MD on Sep 07 2017 1:06AM Referring Provider Line: [phone] ID: [id number] Ultrasound Abdomen, Gallbladder Result Date: 09/06/2017 EXAM: ABDOMEN ULTRASOUND LIMITED, RUQ EXAM DATE: 09/06/2017 11:20 PM. CLINICAL HISTORY: Rig ht upper quadrant pain COMPARISON: 01/22/2017 CT abdomen. TECHNIQUE: Real-time scanning was performed with static images obtained. FINDINGS: Liver: Normal in size and echotexture. cm . Main portal vein flow: Hepatopetal. Gallbladder: Mildly distended. No stones, wall thicken ing, or sonographic Matthews's sign. Biliary System: CBD measures 4.6 mm. No intrahepatic or e xtrahepatic ductal dilatation. Other: None. Mildly distended gallbladder without evidence of cholelithiasis or acute cholecystitis. No bile duct obstruction. RADIA Electronically signed by Stepan Wiggins on Sep 06 2017 11: 45PM Referring Provider Line: [phone] ID: [id number] Problem List: Principal Problem: Epigastric pain Active Problems: Gastroesophageal reflux disease without esophagitis ESRD on peritoneal dialysis Morbid obesity due to excess calories (HCC) Right ovarian cyst Leukocytosis Intractable hiccups Assessment and Plan: 1) abdominal pain w/leukocytosis: the patient is obviously at risk for peritonitis give her PD. This is our primary concern as well. We will not start abx given she is not currently s eptic and will wait for fluid studies from the dialysate. Her symptoms also seem to be consi stent with PUD. She has not been tested for H. Pylori. We will increase her pantoprazole to 40 mg BID and see if this provides improvement in symptoms. - Increase pantoprazole to 40 mg BID - Nephrology to obtain fluid in AM - Morphine for pain control - AM CBC - Zofran for nausea - H. Pylori 2) ESRD w/PD: Nephrology has been consulted and will be assisting in the management of this patient. We appreciate their recommendations. - Avoid nephrotoxic agents - Avoid fluid boluses - Renal diet 3) Intractable Hiccups: Thorazine 25 mg TID 5) Morbid Obesity: Recommend weight loss program with exercise 6) Ovarian cyst: F/u as outpatient DVT: Heparin Disposition: Anticipated hospitalization of at least two days Code Status: Prior Primary Care Physician: [facility] Lukas Lynn MD-R2 09/07/2017 5:07 AM documented in this encounter Procedure Notes Beena Bernstein - 09/10/2017 6:02 PM PDTFormatting of this note might be different from the o riginal. Procedures by Beena Bernstein MD at 09/10/171801 Author: Beena Bernstein MD Service: Gastroenterology Author Type: Physician Filed: 09/16/17 1339 Date of Service: 09/10/171801 Status: Signed Skilled Nursing Case Manager: Beena Bernstein MD (Physician) Related Notes: Original Note by Beena Bernstein MD (Physician) filed at 09/10/171806 Procedure Orders: 1. Case Request Operating Room: ESOPHAGOGASTRODUODENOSCOPY [[id number]] ordered by Beena lau MD at 09/09/172007 Pre-procedure Diagnoses: 1. Nausea [R11.0] 2. Epigastric pain [R10.13] Post-procedure Diagnoses: 1. Reflux esophagitis [K21.0] 2. Acute superficial gastritis without hemorrhage [K29.00] 3. Diverticulum of duodenum [K57.10] Procedures: 1. IA EGD TRANSORAL BIOPSY SINGLE/MULTIPLE [33997 (CPT)] DATE OF SERVICE September 10, 2017 PROCEDURE Esophagogastroduodenoscopy with biopsy. ENDOSCOPIST Beena Bernstein MD INDICATIONS This EGD was performed for further evaluation of persistent nausea and the patient is unabl e to tolerate oral intake. INSTRUMENT Olympus video GIF scope. MEDICATION Propofol by anesthesia. DESCRIPTION OF PROCEDURE Informed consent was obtained from the patient after explaining indications and possible co mplications including but not excluding bleeding, perforation, infection, and reaction to me dication. As the patient was brought into the endoscopy room, the patient was placed in left lateral decubitus position. Following IV sedation, GIF scope was inserted into the oral cav ity and under direct visualization advanced to the fourth portion. FINDINGS In the esophagus, there is mild early reflux esophagitis, but without any erosion, ulcerati on, or stricture. No varicose vein was seen. In the stomach, there was mild diffuse gastritis with erythema including fundus, body, and posterior wall of the antrum. Pylorus appeared normal and patent. Retroflex view of the card ia appeared unremarkable. Biopsy was obtained from the gastric body and antrum for CLOtest t o rule out H. pylori infection. In the duodenum, bulb through the third portion appeared normal. Fourth portion, there was a large diverticular pocket with food in it. Otherwise, the rest of the duodenum appeared un remarkable. There was no thinning of the fold or ulceration seen. IMPRESSION 1. Mild reflux esophagitis. 2. Mild gastritis diffusely, biopsied for CLOtest. 3. Duodenal diverticulum in the fourth portion, suspicious if she has underlying small emma l bacterial overgrowth. RECOMMENDATIONS 1. Renal diet as tolerated. 2. Continue pantoprazole. 3. Carafate 1 g 4 times a day. 4. Rifaximin 550 mg one 3 times a day for the next 1 week. 5. Follow up CLOtest. documented in this encounte r Consult Notes Beena Bernstein - 09/09/2017 7:44 PM PDTFormatting of this note might be different from the o riginal. Consults by Beena Bernstein MD at 09/09/171943 Author: Beena Bernstein MD Service: Gastroenterology Author Type: Physician Filed: 09/10/17 3217 Date of Service: 09/09/171943 Status: Signed Skilled Nursing Case Manager: Beena Bernstein MD (Physician) Related Notes: Original Note by Beena Bernstein MD (Physician) filed at 09/09/172003 Consult Orders: 1. Inpatient consult to GI [[id number]] ordered by Cesar Gatica MD at 09/08/17 1427 [facility]: Gastroenterology Initial Consult Note Date of Admission: 09/06/2017 Reason for Consultation: Persistent nausea Requesting Physician: Cesar Gatica MD History Obtained From: patient, chart review HISTORY OF PRESENT ILLNESS The patient is a 37 y.o. female with past medical history of hypertension, GERD, and develo ped end-stage renal disease over 2 years ago. Has been on peritoneal dialysis. She had perit onitis in the past and now she presents with persistent nausea with the epigastric discomfor t and inability to tolerate oral intake, as it comes right back up. She also claims that she is having dry mouth for the last 5 days, which is probably new to her. She had peritoneal f luid analysis which was questionable for underlying peritonitis. CT scan of the abdomen and pelvis was again not significant to explain persistent nausea and inability to eat oral inta ke. The patient denies any prior endoscopic examination for GERD. She took omeprazole for ma ny years, but when she was put on the dialysis her heartburn has improved, so she was not on omeprazole for a while, but then her symptoms have come back and currently she is taking om eprazole 20 mg twice a day to control reflux symptoms and they are well controlled. She scarlett es any dysphagia. She also denies any significant fever or chills in association with nausea and inability to tolerate oral intake. REVIEW OF SYSTEMS CONSTITUTIONAL: There have been no fever, chills, weight loss, or anorexia. RESPIRATORY: negative for hemoptysis or cough CARDIOVASCULAR: negative for chest pain or palpitation GASTROINTESTINAL: positive for nausea, vomiting, abdominal pain and dry mouth GENITOURINARY: negative for dysuria or hematuria HEMATOLOGIC/LYMPHATIC: negative for easy bruising and bleeding MUSCULOSKELETAL: negative for myalgias and arthralgias Past Medical History Diagnosis Date Diverticulosis GERD (gastroesophageal reflux disease) Hypercalcemia 09/07/2017 Hyperphosphatemia 10/28/2015 Hypocalcemia 10/28/2015 Itching 10/28/2015 Metabolic acidosis 10/28/2015 Obesity Peritonitis associated with peritoneal dialysis (HCC) 01/24/2017 Uremia 10/28/2015 Past Surgical History Procedure Laterality Date PERITONEAL CATHETER INSERTION N/A 10/28/2015 Procedure: LAPAROSCOPIC - PERITONEAL DIALYSIS CATH INSERTION; Surgeon: Mundo Ramos MD; Lo cation: [facility]; Service: Vascular; Laterality: N/A; No Known Allergies Prescriptions Prior to Admission Medication Sig Dispense Refill Last Dose ALPRAZolam (XANAX) 0.5 MG tablet Take 0.5 mg by mouth nightly as needed for Sleep. @0930 at 1000 amLODIPine (NORVASC) 2.5 MG tablet Take 2.5 mg by mouth daily. 06/03/2017@1400 ergocalciferol (DRISDOL) 19662 UNITS capsule Take 50,000 Units by mouth once a week. 06/02/2017 gentamicin (GARAMYCIN) 0.1 % ointment Apply topically 3 (three) times daily. 15 g 1 LORazepam (ATIVAN) 1 MG tablet Take 1 mg by mouth every 8 (eight) hours as needed for A nxiety. 06/04/2017 omeprazole (PRILOSEC) 20 MG capsule Take 20 mg by mouth every morning before breakfast. 05/31/2017 ondansetron (ZOFRAN) 8 MG tablet Take 1 tablet by mouth every 8 (eight) hours as needed for Nausea. 30 tablet 11 Unknown potassium chloride (K-DUR,KLOR-CON) 20 MEQ tablet Take 1 tablet by mouth daily. 30 tabl et 0 promethazine (PHENERGAN) 25 MG tablet Take 25 mg by mouth every 6 (six) hours as needed for Nausea. 06/03/2017 sevelamer (RENVELA) 800 MG tablet Take 2 tablets by mouth 3 (three) times daily with me als. 180 tablet 1 06/01/2017 torsemide (DEMADEX) 20 MG tablet Take 20 mg by mouth daily. couple days Scheduled Medications amLODIPine 2.5 mg Oral Daily cefTAZidime 500 mg Intravenous Daily diazepam 5 mg Intravenous Once heparin (porcine) 5000 unit/0.5mL 5,000 Units Subcutaneous 2 times per day lactulose 20 g Oral TID lidocaine buffered 1% 0.5 mL Intradermal Once pantoprazole 40 mg Oral BID AC potassium chloride SA 20 mEq Oral TID sevelamer 1,600 mg Oral TID WC sodium chloride (PF) 10 mL Intravenous Q8H vancomycin 1,000 mg Intravenous See Admin Instructions Continuous Infusions PRN Medications acetaminophen OR acetaminophen, metoclopramide, morphine OR morphine OR morphin e, ondansetron, polyethylene glycol, promethazine, zolpidem History reviewed. No pertinent family history. History Smoking Status Former Smoker Packs/day: 0.25 Quit date: 10/10/2015 Smokeless Tobacco Never Used History Alcohol Use No Comment: occ History Drug Use Types: Marijuana Comment: oil PHYSICAL EXAM Vital Signs: BP 143/88 | Pulse 90 | Temp 98.4 F (36.9 C) (Oral) | Resp 18 | Ht 1.575 m (5' 2") | Wt 71.9 kg (158 lb 8.2 oz) | SpO2 97% | ? No | BMI 28.99 kg/m GENERAL APPEARANCE: Middle-aged female lying in the bed, awake, answering all the questions appropriately. HEENT: Atraumatic, normocephalic. Anicteric. [place] conjunctivae. No nose or gum bleeding. No oral thrush. NECK: Supple. No lymphadenopathy. CHEST: Symmetrically developed. LUNGS: Clear, without any rales, rhonchi, or wheeze. HEART: Regular S1, S2, without any significant murmur or gallop. ABDOMEN: Obese. Bowel tones are normoactive. No tenderness or rebound tenderness noted. No organomegaly. No palpable mass noted. RECTAL: Exam deferred. EXTREMITIES: No cyanosis, clubbing, or edema noted. NEUROLOGIC: No obvious focal deficit noted. DATA Results Procedure Component Value Units Date/Time Comprehensive metabolic panel [[id number]] (Abnormal) Collected: 09/09/17 0555 Specimen: Blood Updated: 09/09/17 1106 SODIUM 136 mmol/L POTASSIUM 2.9 (L) mmol/L CHLORIDE 96 (L) mmol/L CO2 26 mmol/L ANION GAP AGAP 16 mmol/L GLUCOSE 113 (H) mg/dL BUN 31 (H) mg/dL CREATININE 14 (H) mg/dL BUN/CREAT 2 CALCIUM 8.1 (L) mg/dL TOTAL PROTEIN 6.5 g/dL Albumin 2.1 (L) g/dL GLOBULIN 4.3 g/dL A/G 0.5 (L) TBIL 0.4 mg/dL ALK PHOS 84 U/L AST 16 U/L ALT 14 U/L EGFR 3 (L) mL/min/1.73m2 Phosphorus [[id number]] Collected: 09/09/17 0555 Specimen: Blood Updated: 09/09/17 1106 PHOSPHORUS 3.9 mg/dL CBC W/Auto Diff (Reflex to Manual) [[id number]] (Abnormal) Collected: 09/09/17 1022 Specimen: Blood Updated: 09/09/17 1035 WBC 11.31 (H) K/uL RBC 3.76 M/uL HGB 11.1 (L) g/dL HCT 32.2 (L) % MCV 85.8 fl MCH 29.6 pg MCHC 34.5 g/dL RDW SD 44.2 fl PLT 289 K/uL C&S [[id number]] Collected: 09/07/17804 Specimen: Other from Peritoneal Fluid Updated: 09/09/1745 Specimen Description PERITONEAL FLUID GRAM STAIN 1+ GRAM STAIN WBC'S SEEN GRAM STAIN NO ORGANISMS SEEN CULTURE NO GROWTH 2 DAYS Body fluid cell count [[id number]] Collected: 09/07/17804 Specimen: Other from Peritoneal Washings Updated: 09/07/17912 FLUID TYPE PERITONEAL FLUID COLOR COLORLESS APPEARANCE CLEAR RBC'S <10,000 /mm3 TOTAL NUCLEATED CELLS 127 /mm3 NEUTROPHILS 56 % LYMPHOCYTES 5 % MONOCYTES/MACROPHAGES 39 % CELLS COUNTED 100 Lipase [[id number]] Collected: 09/06/172145 Specimen: Blood Updated: 09/06/172221 LIPASE 199 U/L CBC with differential [[id number]] (Abnormal) Collected: 09/06/172145 Specimen: Blood Updated: 09/06/172204 WBC 15.75 (H) K/uL RBC 4.08 M/uL HGB 12.0 g/dL HCT 34.3 % MCV 84.2 fl MCH 29.5 pg MCHC 35.0 g/dL RDW SD 43.3 fl PLT 311 K/uL MPV 8.0 fl DIFF TYPE AUTOMATED NEUTROPHILS 82.42 % LYMPHOCYTES 10.82 % MONOCYTES 5.56 % EOSINOPHILS 0.48 % BASOPHILS 0.72 % NEUTROPHILS ABS 12.98 (H) K/uL LYMPHOCYTES ABS 1.70 K/uL MONOCYTES ABS 0.88 (H) K/uL EOSINOPHILS ABS 0.08 K/uL BASOPHILS ABS 0.11 (H) K/uL Medical Record Review: done Radiology Review: CT abdomen pelvis: 1. Heterogeneous somewhat complex appearing right adnexal abnormality measuring 4.9 x 4.5 c m (image 70 series 3), probably a hemorrhagic ovarian cyst. Further assessment recommended w ith pelvic ultrasound. 2. Again seen is a 1.3 cm left adrenal nodule, difficult to accurately characterize. No sig nificant change from the prior 01/22/2017 study. Follow-up adrenal protocol CT recommended a t January 2018. RADIA Electronically signed by Star Boyd MD on Sep 07 2017 1:06AM Referring Provider Line : [phone] ID: [id number] US abdomen GB: Mildly distended gallbladder without evidence of cholelithiasis or acute cholecystitis. No bile duct obstruction. Electronically signed by Stepan Wiggins on Sep 06 2017 11:45PM Referring Provider Sandhya ne: [phone] ID: [id number] Patient Active Problem List Diagnosis Adrenal mass (HCC) Abdominal wall abscess Gastroesophageal reflux disease without esophagitis Peritonitis associated with peritoneal dialysis (HCC) ESRD on peritoneal dialysis Hypokalemia Morbid obesity due to excess calories (HCC) Nausea with vomiting Hypoalbuminemia Right ovarian cyst Epigastric pain Leukocytosis Intractable hiccups Hypercalcemia ASSESSMENT & PLAN This is a 37-year-old female who has history of hypertension, GERD, developed end-stage delia al disease, on peritoneal dialysis for more than 2 years. Now she presents with nausea start ed 5 days ago, associated with epigastric pain and inability to tolerate oral intake. She al so has some dry mouth at the same time. Peritoneal fluid analysis showed more than 100 nucle ated cells, out of which more than 50% were neutrophils. She has been treated for peritoniti s but her nausea has been persistent, so GI consultation was called. She had a CT scan of th e abdomen and pelvis and ultrasound of the gallbladder which did not show any gallbladder di sease or gallstone disease. From the GI point of view, possibly we are dealing with underlyi ng peptic ulcer disease with or without Helicobacter pylori infection. She also has worsenin g of the reflux esophagitis without any typical symptoms. Other possibility for nausea is ga stroparesis, although her nausea seems to be with a sudden onset, associated with pain which would be atypical for gastroparesis development. Discussed with the patient regarding upper endoscopic examination, and she said she never h ad it done, and she agreed. This will be done tomorrow. She will need anesthesia care. Code Status: Full Code Primary Care Physician: [facility] Thank you for allowing me to participate in the care of this patient. BEENA BERNSTEIN MD 09/09/2017 oJose C crandall DO - 017 9:57 AM PDT Consult* by Jose C Kaye DO at 09/08/17 09 Author: Jose C Kaye DO Service: (none) Author Type: Physician Filed: 09/08/17 1345 Date of Service: 09/08/1757 Status: Signed Skilled Nursing Case Manager: Jose C Kaye DO (Physician) [facility]: Infectious Disease Initial Consult Note Date of Admission: 09/06/2017 Reason for Consultation: Peritonitis Requesting Physician: Kathy Gatica History Obtained From: patient, chart review CHIEF COMPLAINT: Abdominal pain HISTORY OF PRESENT ILLNESS The patient is 37 y.o. female with significant past medical history of end-stage renal dise ase on peritoneal dialysis who was admitted in January of this year for an episode of peritoni tis who presents with several weeks of worsening persistent abdominal pain. At the time of a dmission, clinical findings were most suggestive of peritonitis. A sample was collected from her peritoneal dialysate, following which she was placed empirically on Fortaz and vancomyc in. The patient primarily reports pain in the upper abdomen, mostly in the epigastric area. This is been present for several weeks, and she had been recommended to undergo an upper end oscopy as an outpatient, although had not yet been able to schedule the procedure. She has b een hungry, but has increased pain and vomiting anytime she eats. She denies any diarrhea. S he has not had any fevers or chills, denies any known recent sick contacts. REVIEW OF SYSTEMS Review of Systems Complete [...] INSERTION; Surgeon: Mundo Ramos MD; Lo cation: [facility]; Service: Vascular; Laterality: N/A; No Known Allergies Prescriptions Prior to Admission Medication Sig Dispense Refill Last Dose ALPRAZolam (XANAX) 0.5 MG tablet Take 0.5 mg by mouth nightly as needed for Sleep. @0930 at 1000 amLODIPine (NORVASC) 2.5 MG tablet Take 2.5 mg by mouth daily. 06/03/2017@1400 ergocalciferol (DRISDOL) 61017 UNITS capsule Take 50,000 Units by mouth once a week. 06/02/2017 gentamicin (GARAMYCIN) 0.1 % ointment Apply topically 3 (three) times daily. 15 g 1 LORazepam (ATIVAN) 1 MG tablet Take 1 mg by mouth every 8 (eight) hours as needed for A nxiety. 06/04/2017 omeprazole (PRILOSEC) 20 MG capsule Take 20 mg by mouth every morning before breakfast. 05/31/2017 ondansetron (ZOFRAN) 8 MG tablet Take 1 tablet by mouth every 8 (eight) hours as needed for Nausea. 30 tablet 11 Unknown potassium chloride (K-DUR,KLOR-CON) 20 MEQ tablet Take 1 tablet by mouth daily. 30 tabl et 0 promethazine (PHENERGAN) 25 MG tablet Take 25 mg by mouth every 6 (six) hours as needed for Nausea. 06/03/2017 sevelamer (RENVELA) 800 MG tablet Take 2 tablets by mouth 3 (three) times daily with me als. 180 tablet 1 06/01/2017 torsemide (DEMADEX) 20 MG tablet Take 20 mg by mouth daily. couple days Scheduled Medications amLODIPine 2.5 mg Oral Daily diazepam 5 mg Intravenous Once heparin (porcine) 5000 unit/0.5mL 5,000 Units Subcutaneous 2 times per day lidocaine buffered 1% 0.5 mL Intradermal Once pantoprazole 40 mg Oral BID AC polyethylene glycol 17 g Oral Daily potassium chloride SA 20 mEq Oral Daily sevelamer 1,600 mg Oral TID WC sodium chloride (PF) 10 mL Intravenous Q8H Continuous Infusions PRN Medications acetaminophen OR acetaminophen, metoclopramide, morphine OR morphine OR morphin e, ondansetron, polyethylene glycol, promethazine, zolpidem History reviewed. No pertinent family history. Social History Social History Marital status: Spouse name: N/A Number of children: N/A Years of education: N/A Occupational History Not on file. Social History Main Topics Smoking status: Former Smoker Packs/day: 0.25 Quit date: 10/10/2015 Smokeless tobacco: Never Used Alcohol use No Comment: occ Drug use: Types: Marijuana Comment: oil Sexual activity: Yes Partners: Male Other Topics Concern Not on file Social History Narrative No narrative on file PHYSICAL EXAM Vital Signs: BP 142/89 (BP Location: Left upper arm) | Pulse 81 | Temp 98.8 F (37.1 C) (Oral) | R enmanuel 16 | Ht 1.575 m (5' 2") | Wt 71 kg (156 lb 8.4 oz) | SpO2 97% | ? No | BMI 28.63 kg/m Temp (24hrs), Av.4 F (36.9 C), Min:98.3 F (36.8 C), Max:98.8 F (37.1 C) Physical Exam Constitutional: The patient is [...] bilaterally without wheezes rales or rhonchi. Abdomen: Soft moderate epigastric and bilateral upper quadrant tenderness, bowel sounds are present, there is no organomegaly or mass. Peritoneal dialysis catheter site unremarkable Musculoskeletal: There is no gross deformity or [...] CBC: Lab Results Component Value Date WBC 10.54 09/08/2017 RBC 3.62 (L) 09/08/2017 HGB 10.5 (L) 09/08/2017 HCT 31.1 (L) 09/08/2017 MCV 86.0 09/08/2017 MCH 29.0 09/08/2017 MCHC 33.8 09/08/2017 RDW 43.3 09/08/2017 PLT 237 09/08/2017 MPV 8.4 09/08/2017 DIFFTYPE AUTOMATED 09/08/2017 CMP: Lab Results Component Value Date NA 136 09/08/2017 K 3.0 (L) 09/08/2017 CL 96 (L) 09/08/2017 CO2 29 09/08/2017 ANIONGAP 14 09/08/2017 GLUF 88 09/08/2017 BUN 35 (H) 09/08/2017 CREATININE 14 (H) 09/08/2017 BCR 3 09/08/2017 CA 8.2 (L) 09/08/2017 CA 9.0 09/07/2017 PROT 6.5 09/08/2017 ALB 2.2 (L) 09/08/2017 GLOB 4.3 09/08/2017 BILITOT 0.4 09/08/2017 ALP 84 09/08/2017 AST 11 09/08/2017 ALT 12 09/08/2017 EGFR 3 (L) 09/08/2017 Microbiology: Peritoneal fluid culture is pending. Blood cultures are pending. Peritoneal fluid cell coun t was 127 with 56 percent neutrophils. Medical imaging: CT scan of the abdomen and pelvis was viewed in PACS. The cystic structure in the right adnexal region is viewed, is not surrounded by any significant fat stranding t o suggest inflammatory changes. Radiology reports as follows: Ultrasound Pelvis, Non- Result Date: 09/07/2017 1. There is a complex multiseptated 3.8 x 3.5 x 3.1 cm lesion within the right ovary. This may represent a hemorrhagic cyst or endometrioma. Based on consensus guidelines, follow-up p elvic ultrasound recommended at 6 weeks. 2. Possible 1.4 cm right-sided paraovarian cyst. At tention on follow-up exam recommended. RADIA Electronically signed by Star Boyd MD on O ct 2016 3:38AM Referring Provider Line: [phone] ID: [id number] Ct Abdomen Pelvis With Iv Contrast Result Date: 09/07/2017 1. Heterogeneous somewhat complex appearing right adnexal abnormality measuring 4.9 x 4.5 c m (image 70 series 3), probably a hemorrhagic ovarian cyst. Further assessment recommended w ith pelvic ultrasound. 2. Again seen is a 1.3 cm left adrenal nodule, difficult to accuratel y characterize. No significant change from the prior 01/22/2017 study. Follow-up adrenal pro tocol CT recommended at January 2018. RADIA Electronically signed by Star Boyd MD on Sep 07 2017 1:06AM Referring Provider Line: [phone] ID: [id number] Ultrasound Abdomen, Gallbladder Result Date: 09/06/2017 Mildly distended gallbladder without evidence of cholelithiasis or acute cholecystitis. No bile duct obstruction. RADIA Electronically signed by Stepan Wiggins on Sep 06 2017 11: 45PM Referring Provider Line: [phone] ID: [id number] Medical record review: I have reviewed the patient's admission history and physical as well as progress notes from the current hospital stay. Emergency department notes have also been reviewed. Much of this information is summarized above in history of present illness. PROBLEM LIST Principal Problem: Epigastric pain Active Problems: Gastroesophageal reflux disease without esophagitis Peritonitis associated with peritoneal dialysis (HCC) ESRD on peritoneal dialysis Hypokalemia Morbid obesity due to excess calories (HCC) Nausea with vomiting Hypoalbuminemia Right ovarian cyst Leukocytosis Intractable hiccups Hypercalcemia ASSESSMENT & PLAN Patient Active Hospital Problem List: Peritonitis associated with peritoneal dialysis / Leukocytosis (HCC) (01/24/2017) The patient's laboratory assessment from peritoneal fluid does not meet criteria for beba tonitis, although can be somewhat confounded by ongoing peritoneal dialysis which will decre ase the cell counts. Leukocytosis has improved with empiric antibiotics, so I would favor co ntinuing antibiotics for now while awaiting cultures. Symptoms however are more suggestive o f gastritis, therefore I would pursue gastroenterology evaluation, possible upper endoscopy. ESRD on peritoneal dialysis (06/04/2017) Antibiotics have been dosed to a GFR of 30, pharmacy adjusting vancomycin per levels, For anabel should continue at a dose of 500 mg q day 24 hours. Discussed with pharmacy. Right ovarian cyst (09/07/2017) Note findings on CT scan to suggest secondary infection, does not correlate with the loca tion of the patient's current pain. Code Status: Full Code Primary Care Physician: [facility] Thank you for allowing me to participate in the care of this patient. I will continue to follow with you. JOSE C KAYE DO 09/08/2017 Amrik Moreno MD - 1 6:19 AM PDT Consult* by Amrik Reyna MD at 09/07/17618 Author: Amrik Reyna MD Service: Nephrology Author Type: Physician Filed: 09/07/172102 Date of Service: 09/07/17618 Status: Signed Skilled Nursing Case Manager: Amrik Reyna MD (Physician) PCP : [facility] LOS: 0 days Ramona Oconnor is a 37 y.o. 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 She is known to me from a previous admission 01/2017 when she was admitted with peritoniti s. She is now admitted with recurrent nausea/upper abdominal pain going on for a couple of day s. Nausea predates the pain and she has been having nausea for a couple of weeks and apparen tly at her monthly meeting with Dr. Chi was advised GI evaluation. Beginning Friday she began to have upper abdominal pain/progressive/severe/associated with severe nausea and without any relief. She has been constipated but denied any cloudy periton eal fluid during PD. She denied any fever/chills. In ED she was hemodynamically stable with no fever/tachycardia/bradycardia. BP was on the h igher side. Imaging with Ultrasound Pelvis 09/07/2017 showed a complex multiseptated 3.8 x 3.5 x 3.1 cm lesion within the right ovary. 2. Possible 1.4 cm right-sided paraovarian cyst. Ct Abdomen Pelvis With Iv Contrast 09/07/2017 showed heterogeneous somewhat complex appeari ng right adnexal abnormality measuring 4.9 x 4.5 cm (image 70 series 3), probably a hemorrha gic ovarian cyst; 1.3 cm left adrenal nodule, difficult to accurately characterize. No signi ficant change from the prior 01/22/2017 study. Follow-up adrenal protocol CT recommended at January 2018. Ultrasound Abdomen, Gallbladder 09/06/2017 showed mildly distended gallbladder without evid ence of cholelithiasis or acute cholecystitis. No bile duct obstruction. Lab work up showed mild leucocytosis with WBC count of 15.75 and hypokalemia with K of 3.4 and hypercalcemia (Ca of 10.3 with albumin of 2.7). Lipase was normal at 199. Lactate was quite low at 1. PD fluid subsequently showed a cell count of 127 with 56% neutrophils. Gram stain was -. Nephrology consultation was requested by Dr. Gates for PD and given concern with periton itis. She is seen with her mother. ROS: As in History of Present Illness. 7 area ROS was done and was otherwise negative. Examination: Constitutional: Alert, awake, oriented lying flat in bed in some distress from abdominal pa in. No asterixis. Morbidly obese. HEENT: Thick neck without JVD, non- icteric sclera. Cardiovascular: S1 soft. No S3. No pericardial rub. LUNGS:: Effort fair. Scattered rales at bases. Abdominal: Minimal tenderness without guarding epigastric region. No distension and no mas s. No rebound tenderness and no guarding. PD [...] 10/25/15 showed normal sized kidneys. 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 Primary accounting systems analyst is Dr. Chi Essential HTN Anemia of chronic renal failure Secondary hyperparathyroidism Family/social history: She lives at home and is a former smoker. Vital Signs: BP 165/74 (BP Location: Left upper arm) | Pulse 74 | Temp 98.2 F (36.8 C) (Oral) | R enmanuel 20 | Ht 1.575 m (5' 2") | Wt 72.1 kg (158 lb 15.2 oz) | SpO2 97% | ? No | BMI 29.07 kg/m Data evaluation: Lab Results Component Value Date BUN 40 (H) 09/06/2017 CREATININE 14 (H) 09/06/2017 EGFR 3 (L) 09/06/2017 NA 135 09/06/2017 K 3.4 (L) 09/06/2017 CL 96 (L) 09/06/2017 CO2 26 09/06/2017 CA 10.3 09/06/2017 PHOS 3.8 06/06/2017 MG 2.6 (H) 06/06/2017 ALB 2.7 (L) 09/06/2017 HGB 12.0 09/06/2017 Assessment and Recommendations: 1. ESRD on PD 2. PD associated peritonitis 3. Hypercalcemia 4. Hypoalbuminemia 5. Hypokalemia Based on diagnostic criteria she has peritonitis. Hypercalcemia by itself could also cause her symptoms. Check PTH, PO4, Vitamin D level and Procalcitonin. She is tolerating PD reasonably well using current access. There is no clear indication of PD catheter removal (no clear evidence of tunnel tract infection). She can resume PD using her usual prescription of 10 hours with 5 cycles of 2 L tonight using mix of 1.5% and 2.5% dianeal solution. We will start with empiric broad spectrum Abx with vancomycin and ceftazidime and follow up PD fluid culture. Replace K to a target of 4 to 4.5 to reduce cardiac irritability. Diet: 1 gm/kg protein, 1 gm PO4, 2 gm Na, and 2 gm K restricted diet. Dose all meds for an eGFR of less than 15 ml/min/1.73 m2. No use of NSAIDs (including MENDES 2 inhibitors). No use of Magnesium or aluminum containing antacids. No use of Magnesium or phosphorus containing laxatives No Fluid restriction Strict I/O Daily weights. Keep in + balance. Plan of care was discussed with Dr. Gates and subsequently Dr. Gatica. I thank Dr. Gates for allowing me to take part in her care. AMRIK REYNA MD 09/07/2017 Portions of my previous notes have been carried over for continuity of care. She was seen earlier in the day and charting was completed later after rounds. Dictation software, was [employer], used which may contain error for similar sounding words deja n after review. Personal communication is requested for any clarification. Prognosis is guarded in view of multiple comorbid illnesses and ESRD amLODIPine 2.5 mg Oral Daily chlorproMAZINE 25 mg Oral TID diazepam 5 mg Intravenous Once heparin (porcine) 5000 unit/0.5mL 5,000 Units Subcutaneous 2 times per day lidocaine buffered 1% 0.5 mL Intradermal Once pantoprazole 40 mg Oral BID AC potassium chloride SA 20 mEq Oral Daily sevelamer 1,600 mg Oral TID WC sodium chloride (PF) 10 mL Intravenous Q8H documented in this en counter ED Notes Conversion Transaction, Provider Unknown - 09/07/2017 5:05 AM PDTFormatting of this note m ight be different from the original. ED Notes by Maria Del Rosario Baptiste RN at 09/07/17504 Author: Maria Del Rosario Baptiste RN Service: (none) Author Type: Registered Nurse Filed: 09/07/1731 Date of Service: 09/07/17504 Status: Signed Skilled Nursing Case Manager: Maria Del Rosario Baptiste RN (Registered Nurse) Pt has been sleeping with mother in bed. Maria Del Rosario Baptiste RN 09/07/17530 onver patric Transaction, Provider Unknown - 09/07/2017 2:39 AM PDT ED Notes by Maria Del Rosario Baptiste RN at 09/07/179 Author: Maria Del Rosario Baptiste RN Service: (none) Author Type: Registered Nurse Filed: 09/07/17238 Date of Service: 09/07/17238 Status: Signed Skilled Nursing Case Manager: Maria Del Rosario Baptiste RN (Registered Nurse) Pt in imaging. Family in room Maria Del Rosario Baptiste RN 09/07/17238 onver patric Transaction, Provider Unknown - 09/07/2017 1:17 AM PDT ED Notes by Maria Del Rosario Baptiste RN at 09/07/17116 Author: Maria Del Rosario Baptiste RN Service: (none) Author Type: Registered Nurse Filed: 09/07/17118 Date of Service: 09/07/17116 Status: Signed Skilled Nursing Case Manager: Maria Del Rosario Baptiste RN (Registered Nurse) Nurse walked into room and mother of pt stated that she was concerned about a small mass th at she noticed on the pt on the lower part of her right and left breast. Nurse advised that pt should probably get a mammogram done some time soon. Maria Del Rosario Baptiste RN 09/07/17118 onver patric Transaction, Provider Unknown - 09/06/2017 9:40 PM PDT ED Notes by Maria Del Rosario Baptiste RN at 09/06/172139 Author: Maria Del Rosario Baptiste RN Service: (none) Author Type: Registered Nurse Filed: 09/06/172199 Date of Service: 09/06/172139 Status: Addendum Skilled Nursing Case Manager: Maria Del Rosario Baptiste RN (Registered Nurse) Related Notes: Original Note by Maria Del Rosario Baptiste RN (Registered Nurse) filed at 09/06/17 214 1 Pt states abd pain and nausea that waxes and wanes for the past 3 weeks and is suppose to h ave an endoscopy but has not had it yet. Pt does peritoneal dialysis at home q night and st ates that dialysate is clear. Maria Del Rosario Baptiste RN 09/06/172140 Maria Del Rosario Baptiste RN 09/06/172199 rabtr Dario smith MD - 09/06/2017 9:36 PM PDT ED Provider Notes by Dario Gates MD at 09/06/172135 Author: Dario Gates MD Service: -Emergency Author Type: Physician Filed: 09/07/17 0427 Date of Service: 09/06/172135 Status: Signed Skilled Nursing Case Manager: Dario Gates MD (Physician) [facility] Department of Emergency Medicine History of Present Illness Patient Identification Ramona Oconnor is a 37 y.o. female. Patient information was obtained from patient and relative(s). History/Exam limitations: none. Patient presented to the Emergency Department by: Car Chief Complaint Chief Complaint Patient presents with Emesis C/o n/v x2 days. Abdominal Pain 9:37 PM The patient presents to ED with complaints of emesis Location:GI Quality:emesis and "pain" Severity:moderate Context:Pt reports she has not been able to keep anything down for 3 days. Pt also complain s of nausea for 3 weeks now and abdominal pain. Pt reports her epigastrium "feels like fire" after she eats. Pt has been on peritoneal dialysis for almost two years and says she is irving lyzed every night. Pt's denies changes in the dialysate fluid. Pt's reports the pt has lost 15 pounds in [address] Chi has recommended and endoscopy but pt is yet to have one done. Care prior to arrival consisted of one 5 mg tablet of Oxycodone and Zofran, with no relief. PMHx: Diverticulitis, GERD Timing:intermittent Duration:3 days Modifying factors:abdominal pain is worsened with eating The patient also complains of epigastric abdominal pain and nausea Patient denies any other sx at this time. PCP: [facility] Past Medical History Diagnosis Date Diverticulosis GERD (gastroesophageal reflux disease) Hyperphosphatemia 10/28/2015 Hypocalcemia 10/28/2015 Itching 10/28/2015 Metabolic acidosis 10/28/2015 Obesity Peritonitis associated with peritoneal dialysis (HCC) 01/24/2017 Uremia 10/28/2015 Past Surgical History Procedure Laterality Date PERITONEAL CATHETER INSERTION N/A 10/28/2015 Procedure: LAPAROSCOPIC - PERITONEAL DIALYSIS CATH INSERTION; Surgeon: Mundo Ramos MD; Lo cation: [facility] MAIN OR; Service: Vascular; Laterality: N/A; Prior to Admission medications Medication Sig Start Date End Date Taking? Authorizing Provider ALPRAZolam (XANAX) 0.5 MG tablet Take 0.5 mg by mouth nightly as needed for Sleep. Histo rical Provider amLODIPine (NORVASC) 2.5 MG tablet Take 2.5 mg by mouth daily. Historical Provider ergocalciferol (DRISDOL) 69082 UNITS capsule Take 50,000 Units by mouth [...] needed for Nausea. 01/25/17 Shad Ba MD potassium chloride (K-DUR,KLOR-CON) 20 MEQ tablet Take 1 tablet by mouth daily. 06/05/17 7/05/27 Jaxon Ko MD promethazine (PHENERGAN) 25 MG tablet Take 25 [...] Alcohol use No Comment: occ Drug use: Types: Marijuana Comment: oil Sexual activity: Yes Partners: Male Other Topics Concern Not on file Social History Narrative No narrative on file History reviewed. No pertinent family history. .ROS Review of Systems Constitutional: Positive for weight loss. Gastrointestinal: Positive for abdominal pain, nausea and vomiting. All other systems reviewed and are negative. Physical Exam Vitals: 09/06/17 2334 09/07/17 0058 09/07/17 0253 09/07/17 0401 BP: 157/86 (!) 163/97 154/83 144/80 BP Location: Left upper arm Left forearm Left upper arm Left upper arm Pulse: 67 70 67 84 Resp: 18 16 16 18 Temp: SpO2: 98% 100% 99% 99% Weight: Vital sign interpretation: hypertensive, otherwise WNL Pulse Oximetry interpretation: Normal General: Alert, no active distress Eyes: Normal inspection, EOMI, Head: NCAT ENT: Ears normal Nose normal Neck: Normal inspection, Supple, FROM without pain Cardiovascular: Extremity perfusion appears normal Respiratory: Effort normal, No respiratory distress, Lungs are clear Abdomen: Nondistended, Upper epigastric and RUQ pain No pulsatile abd masses, No guarding or rebound Back: Normal inspection, normal movement. Skin: No rash Extremities: No deformities Neuro: Alert, oriented, cranial nerves grossly intact. No gross motor deficits Psych: Mood normal Lymph: No visible adenopathy Medical Decision Making and Emergency Department Course ED Department Course My DDx includes, but is not limited to: see below. The following medications were given during the course of treatment in the Emergency Depart ment: Medications ondansetron (ZOFRAN) injection 4 mg (4 mg Intravenous Given 09/06/172152) HYDROmorphone (DILAUDID) injection 1 mg (1 mg Intravenous Given 09/07/17 0107) sodium chloride (bolus) 0.9 % 500 mL (0 mLs Intravenous Stopped 09/06/172224) ondansetron (ZOFRAN) injection 4 mg (4 mg Intravenous Given 09/06/172234) promethazine (PHENERGAN) IVPB 25 mg (0 mg Intravenous Stopped 09/06/17 2348) iopamidol (ISOVUE-300) 61 % injection 100 mL (70 mLs Intravenous Given 09/07/17 0001) MDM: Pleasant 37 y.o. female Differential: Abdominal pain, peritonitis, diverticulitis, biliary colic Patient presents with increasing epigastric pain over last couple days Multiple episodes of vomiting. She has had increasing issues with abdominal discomfort over last several weeks We will need to give pain medication such better tolerate and perform a more thorough exam to try to localize area of pain. On initial exam to have any overt peritoneal signs however would not tolerate deeper palpat ion to ascertain whether one area was worse than another. 10:10 PM Pt reevaluation. Repeat abdominal exam. Refer to physical exam above. Patient does not have any focal peritoneal signs, seems localized the upper epigastric right upper quadrant, henc e we will obtain an ultrasound biliary tree Laboratory interpretation reveals some slight hypokalemia, expected renal dysfunction, LFTs and lipase are normal, white count is elevated at 15.7. If ultrasound does not explain patient pathology will need to proceed with a CT. If ultrasound is nondiagnostic will likely need to proceed with additional imaging such as CT. 10:31 PM Pt is vomiting and reports her pain remains the same. Will order Zofran and Phenergan. 11:11 PM Lactic acid level is normal. 11:30 PM Ultrasound demonstrates slightly dilated gallbladder, with without overt stones appreciated . Will proceed with CT abdomen pelvis 1:[address] resulted showing a abnormal ovarian mass will obtain US. 3:21 AM Repeat evaluation. Abdomen is Soft, non tender. Pt is now requesting a trial of food. 4:01 AM Pt did no pass po challenge. Reports she is in pain. Will arrange admission for overnight o bservation. 4:11 AM I spoke with Dr. Pate, Hospitalist. He accepts for admission. Want me to discussed with ne phrology to discuss obtaining a sample. 4:16 AM I spoke with Dr. Reyna, Nephrology. He will speak with the dialysis nurse at around 6am-6: 30am to obtain sample and they can determine need for abx at that point. I have added him to the treatment team. At this time the patient's abdominal exam does not have any peritoneal signs, does not have findings which are overtly consistent with or concerning for peritonitis. Patient has had 2 lactates which are negative Records Reviewed Old medical records. Nursing notes. No previous [facility] ED visits available in [place] for review. (Using the electronic record system of [facility]) Laboratory Evaluation Results Procedure Component Value Ref Range Date/Time Septic Lactic Acid [[id number]] Collected: 09/07/17 0105 Order Status: Completed Updated: 09/07/17 0146 LACTIC ACID 1.0 0.4 - 2.0 mmol/L Septic Lactic Acid [[id number]] Collected: 09/06/176 Order Status: Completed Updated: 09/06/172223 LACTIC ACID 1.6 0.4 - 2.0 mmol/L Comprehensive metabolic panel [[id number]] (Abnormal) Collected: 09/06/172145 Order Status: Completed Specimen: Blood Updated: 09/06/172221 SODIUM 135 135 - 145 mmol/L POTASSIUM 3.4 (L) 3.5 - 4.9 mmol/L CHLORIDE 96 (L) 99 - 109 mmol/L CO2 26 23 - 32 mmol/L ANION GAP AGAP 17 5 - 20 mmol/L GLUCOSE 99 65 - 99 mg/dL BUN 40 (H) 8 - 25 mg/dL CREATININE 14 (H) 0.50 - 1.00 mg/dL BUN/CREAT 3 CALCIUM 10.3 8.5 - 10.5 mg/dL TOTAL PROTEIN 7.5 6.3 - 8.2 g/dL Albumin 2.7 (L) 3.6 - 5.0 g/dL GLOBULIN 4.8 1.3 - 4.9 g/dL A/G 0.6 (L) 1.0 - 2.4 TBIL 0.4 0.1 - 1.5 mg/dL ALK PHOS 102 35 - 115 U/L AST 11 10 - 45 U/L ALT 16 10 - 65 U/L EGFR 3 (L) >60 mL/min/1.73m2 Lipase [[id number]] Collected: 09/06/172145 Order Status: Completed Specimen: Blood Updated: 09/06/172221 LIPASE 199 73 - 393 U/L CBC with differential [[id number]] (Abnormal) Collected: 09/06/172145 Order Status: Completed Specimen: Blood Updated: 09/06/172204 WBC 15.75 (H) 3.80 - 11.00 K/uL RBC 4.08 3.70 - 5.10 M/uL HGB 12.0 11.3 - 15.5 g/dL HCT 34.3 34.0 - 46.0 % MCV 84.2 80.0 - 100.0 fl MCH 29.5 27.0 - 34.0 pg MCHC 35.0 32.0 - 35.5 g/dL RDW SD 43.3 37 - 53 fl PLT 311 150 - 400 K/uL MPV 8.0 fl DIFF TYPE AUTOMATED NEUTROPHILS 82.42 % LYMPHOCYTES 10.82 % MONOCYTES 5.56 % EOSINOPHILS 0.48 % BASOPHILS 0.72 % NEUTROPHILS ABS 12.98 (H) 1.90 - 7.40 K/uL LYMPHOCYTES ABS 1.70 1.00 - 3.90 K/uL MONOCYTES ABS 0.88 (H) 0.00 - 0.80 K/uL EOSINOPHILS ABS 0.08 0.00 - 0.50 K/uL BASOPHILS ABS 0.11 (H) 0.00 - 0.10 K/uL I personally reviewed the lab results and they have been posted to the chart at the time of the patients disposition. Radiology and EKG Evaluation Imaging Results Ultrasound pelvis, non- (Final result) Result time 09/07/17 03:38:33 Final result by Star Boyd MD (09/07/17 03:38:33) Impression: 1. There is a complex multiseptated 3.8 x 3.5 x 3.1 cm lesion within the right ovary. This may represent a hemorrhagic cyst or endometrioma. Based on consensus guidelines, follow-up p elvic ultrasound recommended at 6 weeks. 2. Possible 1.4 cm right-sided paraovarian cyst. Attention on follow-up exam recommended. RADIA Electronically signed by Star Boyd MD on Sep 07 2017 3:38AM Referring Provider Line: [phone] ID: [id number] Narrative: EXAM: PELVIC ULTRASOUND EXAM DATE: 09/07/2017 02:37 AM. CLINICAL HISTORY: Ovarian lesion seen on prior CT, further assessment and characterization. COMPARISON: CT earlier today. TECHNIQUE: Realtime transvaginal pelvic scan performed to identify the uterus and adnexa an d as an overview of other pelvic structures, with static image documentation. FINDINGS: LMP: 08/08/2017. Uterus: Uterus is normal in position and normal in configuration. Uterus measures 7.3 cm. No evident uterine masses. Endometrium: Endometrium measures 6.9 mm. No suspicious thickening or vascularity. Cervix: No suspicious lesion. Small nabothian cyst. Right Ovary: The right ovary measures 4.7 x 3.5 x 4.5 cm. There is a complex, multiseptated appearing lesion measuring 3.8 x 3.5 x 3.1 cm. Normal blood flow to the ovary. Left Ovary: Obscured by bowel gas. Fluid: There is trace amount of fluid, within physiologic limits. Other: Apparent small paraovarian hypoechoic 1.4 cm structure adjacent to the right ovary. Preliminary result by Star Boyd MD (09/07/17 03:00:22) Impression: 1. There is a complex multiseptated 3.8 x 3.5 x 3.1 cm lesion within the right right ovary. This may represent a hemorrhagic cyst or endometrioma. Based on consensus guidelines, follo w-up pelvic ultrasound recommended at 6 weeks. 2. Possible 1.4 cm right-sided paraovarian cyst. Attention on follow-up exam recommended. RADIA Read by Star Boyd MD on Sep 07 2017 3:00AM CT Abdomen Pelvis with IV contrast (Final result) Result time 09/07/17 01:06:58 Final result by Star Boyd MD (09/07/17 01:06:58) Impression: 1. Heterogeneous somewhat complex appearing right adnexal abnormality measuring 4.9 x 4.5 c m (image 70 series 3), probably a hemorrhagic ovarian cyst. Further assessment recommended w ith pelvic ultrasound. 2. Again seen is a 1.3 cm left adrenal nodule, difficult to accurately characterize. No sig nificant change from the prior 01/22/2017 study. Follow-up adrenal protocol CT recommended a t January 2018. RADIA Electronically signed by Star Boyd MD on Sep 07 2017 1:06AM Referring Provider Line: [phone] ID: [id number] Narrative: EXAM: CT ABDOMEN AND PELVIS EXAM DATE: 09/07/2017 12:09 AM. CLINICAL HISTORY: Abdominal pain. COMPARISONS: None. TECHNIQUE: Routine helical CT imaging was performed through the abdomen and pelvis. IV cont rast: 70 mL Isovue-300. Enteric contrast: No. Reconstructions: Coronal and sagittal. In accordance with CT protocol optimization, one or more of the following dose reduction te chniques were utilized for this exam: automated exposure control, adjustment of mA and/or KV based on patient size, or use of iterative reconstructive technique. FINDINGS: ABDOMEN: Liver: No significant abnormality. Stomach/Distal Esophagus: No significant abnormality. Gallbladder: No significant abnormality. Bile Ducts: No significant abnormality. Pancreas: No significant abnormality. Spleen: No significant abnormality. Kidneys: No solid appearing lesion. No hydronephrosis. Adrenals: There is a small nodule within the left adrenal measuring 13 mm (image 23 series 3). This is difficult to accurately characterize on this exam. Bowel: No obstruction. Average fecal residual. Appendix: Normal. Lymph Nodes: No pathologically enlarged nodes. Vasculature: Normal caliber aorta. Fluid: No significant free fluid. Abdominal Wall: No significant abnormality. Other: No significant abnormality. PELVIS: Uterus and ovaries: There is a heterogeneous appearing right adnexal abnormality measuring 4.5 x 4.9 cm (image 70 series 3). Bladder: Decompressed, precluding assessment. Lymph Nodes: No pathologically enlarged nodes. Fluid: No significant free fluid. Other: Peritoneal dialysis catheter is looped within the anterior pelvis. BONES: No suspicious bony lesions. LOWER CHEST: No significant consolidation or effusion. Preliminary result by Star Boyd MD (09/07/17 01:01:10) Impression: 1. Heterogeneous somewhat complex appearing right adnexal ability measuring 4.9 x 4.5 cm (i mage 70 series 3), probably a hemorrhagic ovarian cyst. Further assessment recommended with pelvic ultrasound. 2. Again seen is a 1.3 cm left adrenal nodule, difficult to accurately characterize. No sig nificant change from the prior 01/22/2017 study. Follow-up adrenal protocol CT recommended a t January 2018. RADIA Read by Star Boyd MD on Sep 07 2017 1:01AM Ultrasound abdomen, gallbladder (Final result) Result time 09/06/17 23:45:01 Final result by Stepan Wiggins MD (09/06/17 23:45:01) Impression: Mildly distended gallbladder without evidence of cholelithiasis or acute cholecystitis. No bile duct obstruction. RADIA Electronically signed by Stepan Wiggins, on Sep 06 2017 11:45PM Referring Provider Line : [phone] ID: [id number] Narrative: EXAM: ABDOMEN ULTRASOUND LIMITED, RUQ EXAM DATE: 09/06/2017 11:20 PM. CLINICAL HISTORY: Right upper quadrant pain COMPARISON: 01/22/2017 CT abdomen. TECHNIQUE: Real-time scanning was performed with static images obtained. FINDINGS: Liver: Normal in size and echotexture. cm. Main portal vein flow: Hepatopetal. Gallbladder: Mildly distended. No stones, wall thickening, or sonographic Matthews's sign. Biliary System: CBD measures 4.6 mm. No intrahepatic or extrahepatic ductal dilatation. Other: None. Preliminary result by Stepan Wiggins MD (09/06/17 23:44:07) Impression: Mildly distended gallbladder without evidence of cholelithiasis or acute cholecystitis. No bile duct obstruction. RADIA Read by Stepan Wiggins MD on Sep 06 2017 11:44PM ED Diagnoses Final diagnoses Intractable abdominal pain Intractable vomiting with nausea, unspecified vomiting type Hemorrhagic ovarian cyst Leukocytosis, unspecified type Disposition: ED Disposition ED Disposition Condition Comment Admit/Observation Bed request special needs: Dialysis Diagnosis?: Intractable abdominal pain, intractable vomiting Follow-up Information None Discharge Medications: New Prescriptions No new medications This document has been prepared with a voice recognition system. The possibility of "sound alike" coroner forensic technician errors, and additions or deletions may occur. If there is any questio n, with respect to clarity of the message being conveyed, please contact me directly for cla rification. Any physical exam findings mentioned in the MDM take precedence over findings listed in phy sical exam section. Dario Gates MD, MPH Procedures Additional Documentation Procedures Attending Provider Note: I, Dario Gates MD personally performed the services describe d in this documentation, as scribed by Lelia Van in my presence, and it is both accurat e and complete. Chart Reviewed and Completed: 09/07/2017 4:27 AM Scribe: Jason Zafar, scribing for and in the presence of Dario Gates MD. Signed by: Jason Crawford 09/07/2017 4:27 AM Dario Gates MD 09/07/17 0427 documented in this encounter Miscellaneous Notes Plan of Care - Conversion Transaction, Provider Unknown - 09/13/2017 10:30 AM PDT Plan of Care by Fartun Harris RN at 09/13/17 103 Author: Fartun Harris RN Service: (none) Author Type: Registered Nurse Filed: 09/13/17 103 Date of Service: 09/13/171029 Status: Signed Skilled Nursing Case Manager: Fartun Harris RN (Registered Nurse) Patient's discharge needs are met Progressing Patient will be injury free during hospitalization Progressing lan o f Care - Conversion Transaction, Provider Unknown - 09/13/2017 1:03 AM PDTFormatting of teresa s note might be different from the original. Plan of Care by Jessica Randle RN at 09/13/17 0103 Author: Jessica Randle RN Service: (none) Author Type: Registered Nurse Filed: 09/13/17 0104 Date of Service: 09/13/17102 Status: Signed Skilled Nursing Case Manager: Jessica Randle RN (Registered Nurse) Daily Care Daily care needs are met Progressing Pt. Vital signs remain stable. Pain Patient's pain/discomfort is manageable Progressing Pt. Able to report whn pain medication is needed. 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 Plan of Care by Judit Mcgraw RN at 09/12/17 1002 Author: Judit Mcgraw RN Service: (none) Author Type: Registered Nurse Filed: 09/12/17 1003 Date of Service: 09/12/17 1002 Status: Signed Skilled Nursing Case Manager: Judit Mcgraw RN (Registered Nurse) Problem: Safety Goal: Patient [...] and non-skid footwear provided. Outcome: Progressing Patient has had no falls, uses call light appropriately, wearing non-skid socks, and has st able vitals. lan o f Care - Conversion Transaction, Provider Unknown - 09/11/2017 10:50 PM PDTFormatting of teresa s note might be different from the original. Plan of Care by Virginia Darby RN at 09/11/172249 Author: Virginia Darby RN Service: (none) Author Type: Registered Nurse Filed: 09/11/172249 Date of Service: 09/11/172249 Status: Signed Skilled Nursing Case Manager: Virginia Darby RN (Registered Nurse) Problem: Pain Goal: Patient's pain/discomfort is manageable Assess and monitor patient's pain using appropriate pain scale. Collaborate with interdisci plinary team and initiate plan and interventions as ordered. Re-assess patient's pain level approximately 1-2 hours after pain management intervention. Premedicate as needed. Outcome: Progressing Patient states pain is well controlled on prescribed analgesia. Problem: Safety Goal: Patient will be injury [...] policy, and non-skid footwear provided. Outcome: Progressing Walk ways remain clear in room, call light within reach, bed in lowest position. Patient ca lls appropriately when needs arise. lan o f Care - Conversion Transaction, Provider Unknown - 09/11/2017 2:49 PM PDTFormatting of teresa s note might be different from the original. Plan of Care by Judit Mcgraw RN at 09/11/171448 Author: Judit Mcgraw RN Service: (none) Author Type: Registered Nurse Filed: 09/11/171448 Date of Service: 09/11/171448 Status: Signed Skilled Nursing Case Manager: Judit Mcgraw RN (Registered Nurse) Problem: Pain Goal: Patient's pain/discomfort is manageable Assess and monitor patient's pain using appropriate pain scale. Collaborate with interdisci plinary team and initiate plan and interventions as ordered. Re-assess patient's pain level approximately 1-2 hours after pain management intervention. Premedicate as needed. Outcome: Progressing Patient utilizing IV medications with adequate pain management. lan o f Care - Conversion Transaction, Provider Unknown - 09/10/2017 10:37 PM PDTFormatting of teresa martinez note might be different from the original. Plan of Care by Virginia Darby RN at 09/10/172236 Author: Virginia Darby RN Service: (none) Author Type: Registered Nurse Filed: 09/10/172236 Date of Service: 09/10/172236 Status: Signed Skilled Nursing Case Manager: Virginia Darby RN (Registered Nurse) Safety Patient will be injury free during hospitalization Progressing Patient demonstrates safe transfer techniques and safe ambulating. Pain Patient's pain/discomfort is manageable Progressing Patient states pain is well controlled on prescribed analgesia. lan o f Care - Conversion Transaction, Provider Unknown - 09/10/2017 2:04 PM PDTFormatting of teresa martinez note might be different from the original. Plan of Care by Brittany Mcrae RN at 09/10/171403 Author: Brittany Mcrae RN Service: (none) Author Type: Registered Nurse Filed: 09/10/176 Date of Service: 09/10/171403 Status: Signed Skilled Nursing Case Manager: Brittany Mcrae RN (Registered Nurse) Daily Care Daily care needs are met Progressing Discharge Barriers Patient's discharge needs are met Progressing Pain Patient's pain/discomfort is manageable Progressing Pt states pain is adequately controlled, PRN morphine given and pain reassessed within a re asonable time. Psychosocial Needs Demonstrates ability to cope with hospitalization/illness Progressing Collaborate with patient/family/caregiver to identify patient specific goals for this h ospitalization Progressing pts mother in the room, encourages patient, assists with daily cares. Safety Patient will be injury free during hospitalization Progressing Pt uses call light appropriately, call light within reach, bed in lowest position, non skid socks on when OOB. lan o f Care - Conversion Transaction, Provider Unknown - 09/09/2017 7:59 PM PDTFormatting of thi s note might be different from the original. Plan of Care by Paulie Cruz RN at 09/09/171958 Author: Paulie Cruz RN Service: (none) Author Type: Registered Nurse Filed: 09/09/17 5523 Date of Service: 09/09/171958 Status: Signed Skilled Nursing Case Manager: Paulie Cruz RN (Registered Nurse) Safety Patient will be injury free during hospitalization Progressing Call light within reach, skid socks on, area free of clutter. lan o f Care - Conversion Transaction, Provider Unknown - 09/08/2017 9:44 PM PDTFormatting of thi s note might be different from the original. Plan of Care by Paulie Cruz RN at 09/08/172143 Author: Paulie Cruz RN Service: (none) Author Type: Registered Nurse Filed: 09/08/172308 Date of Service: 09/08/172143 Status: Signed Skilled Nursing Case Manager: Paulie Cruz RN (Registered Nurse) Daily Care Daily care needs are met Progressing Pain Patient's pain/discomfort is manageable Progressing Safety Patient will be injury free during hospitalization Progressing lan o f Care - Conversion Transaction, Provider Unknown - 09/08/2017 9:38 AM PDTFormatting of thi s note might be different from the original. Plan of Care by Corine Bianchi RN at 09/08/17937 Author: Corine Bianchi RN Service: (none) Author Type: Registered Nurse Filed: 09/08/1739 Date of Service: 09/08/17937 Status: Signed Skilled Nursing Case Manager: Corine Bianchi RN (Registered Nurse) Daily Care Daily care needs are met Progressing Discharge Barriers Patient's discharge needs are met Progressing Pain Patient's pain/discomfort is manageable Progressing Psychosocial Needs Demonstrates ability to cope with hospitalization/illness Progressing Collaborate with patient/family/caregiver to identify patient specific goals for this h ospitalization Progressing Safety Patient will be injury free during hospitalization Progressing Patient educated to use incentive spirometer 10 times an hour and walk three times during t he day. Call light is within reach. lan o f Care - Conversion Transaction, Provider Unknown - 09/08/2017 1:15 AM PDTFormatting of teresa s note might be different from the original. Plan of Care by Zana Zabala RN at 09/08/17114 Author: Zana Zabala RN Service: (none) Author Type: Registered Nurse Filed: 09/08/17114 Date of Service: 09/08/17114 Status: Signed Skilled Nursing Case Manager: Zana Zabala RN (Registered Nurse) Pain Patient's pain/discomfort is manageable Progressing Safety Patient will be injury free during hospitalization Progressing lan o f Care - Conversion Transaction, Provider Unknown - 09/07/2017 11:20 AM PDTFormatting of teresa s note might be different from the original. Plan of Care by Katherine Cardozo RN at 09/07/171119 Author: Katherine Cardozo RN Service: (none) Author Type: Registered Nurse Filed: 09/07/171119 Date of Service: 09/07/171119 Status: Signed Skilled Nursing Case Manager: Katherine Cardozo RN (Registered Nurse) Daily Care Daily care needs are met Progressing Discharge Barriers Patient's discharge needs are met Progressing Pain Patient's pain/discomfort is manageable Progressing Psychosocial Needs Demonstrates ability to cope with hospitalization/illness Progressing Collaborate with patient/family/caregiver to identify patient specific goals for this h ospitalization Progressing Safety Patient will be injury free during hospitalization Progressing docume nted in this encounter Plan of Treatment Not on filedocumented as of this encounter Procedures + +--------+ + + + | Procedure Name | Priori | Date/Time | Associated Diagnosis | Comments | | | ty | | | | + +--------+ + + + | EXTERNAL LAB: CBC | Routin | 09/13/2017 | | Results for this | | | e | 5:49 AM | | procedure are in the | | | | PDT | | results section. | + +--------+ + + + | MAGNESIUM | Routin | 09/13/2017 | | Results for this | | | e | 5:49 AM | | procedure are in the | | | | PDT | | results section. | + +--------+ + + + | COMPREHENSIVE | Routin | 09/13/2017 | | Results for this | | METABOLIC PANEL | e | 5:49 AM | | procedure are in the | | | | PDT | | results section. | + +--------+ + + + | EXTERNAL LAB: CBC | Routin | 09/12/2017 | | Results for this | | | e | 4:56 AM | | procedure are in the | | | | PDT | | results section. | + +--------+ + + + | MAGNESIUM | Routin | 09/12/2017 | | Results for this | | | e | 4:56 AM | | procedure are in the | | | | PDT | | results section. | + +--------+ + + + | COMPREHENSIVE | Routin | 09/12/2017 | | Results for this | | METABOLIC PANEL | e | 4:56 AM | | procedure are in the | | | | PDT | | results section. | + +--------+ + + + | H. PYLORI ANTIGEN, | Timed | 09/11/2017 | | Results for this | | STOOL | | 12:35 PM | | procedure are in the | | | | PDT | | results section. | + +--------+ + + + | EXTERNAL LAB: CBC | Routin | 09/11/2017 | | Results for this | | | e | 5:56 AM | | procedure are in the | | | | PDT | | results section. | + +--------+ + + + | MAGNESIUM | Routin | 09/11/2017 | | Results for this | | | e | 5:56 AM | | procedure are in the | | | | PDT | | results section. | + +--------+ + + + | VANCOMYCIN LEVEL | Routin | 09/11/2017 | | Results for this | | | e | 5:56 AM | | procedure are in the | | | | PDT | | results section. | + +--------+ + + + | COMPREHENSIVE | Routin | 09/11/2017 | | Results for this | | METABOLIC PANEL | e | 5:56 AM | | procedure are in the | | | | PDT | | results section. | + +--------+ + + + | HELICOBACTER PYLORI | Routin | 09/10/2017 | | Results for this | | BIOPSY | e | 5:49 PM | | procedure are in the | | | | PDT | | results section. | + +--------+ + + + | EXTERNAL LAB: CBC | Routin | 09/10/2017 | | Results for this | | | e | 6:06 AM | | procedure are in the | | | | PDT | | results section. | + +--------+ + + + | PHOSPHORUS | Routin | 09/10/2017 | | Results for this | | | e | 6:06 AM | | procedure are in the | | | | PDT | | results section. | + +--------+ + + + | MAGNESIUM | Routin | 09/10/2017 | | Results for this | | | e | 6:06 AM | | procedure are in the | | | | PDT | | results section. | + +--------+ + + + | VANCOMYCIN LEVEL | Routin | 09/10/2017 | | Results for this | | | e | 6:06 AM | | procedure are in the | | | | PDT | | results section. | + +--------+ + + + | COMPREHENSIVE | Routin | 09/10/2017 | | Results for this | | METABOLIC PANEL | e | 6:06 AM | | procedure are in the | | | | PDT | | results section. | + +--------+ + + + | EXTERNAL LAB: CBC | Routin | 09/09/2017 | | Results for this | | | e | 10:22 AM | | procedure are in the | | | | PDT | | results section. | + +--------+ + + + | PHOSPHORUS | Routin | 09/09/2017 | | Results for this | | | e | 5:55 AM | | procedure are in the | | | | PDT | | results section. | + +--------+ + + + | VANCOMYCIN LEVEL | Routin | 09/09/2017 | | Results for this | | | e | 5:55 AM | | procedure are in the | | | | PDT | | results section. | + +--------+ + + + | COMPREHENSIVE | Routin | 09/09/2017 | | Results for this | | METABOLIC PANEL | e | 5:55 AM | | procedure are in the | | | | PDT | | results section. | + +--------+ + + + | EXTERNAL LAB: CBC | Routin | 09/08/2017 | | Results for this | | | e | 4:52 AM | | procedure are in the | | | | PDT | | results section. | + +--------+ + + + | PHOSPHORUS | Routin | 09/08/2017 | | Results for this | | | e | 4:52 AM | | procedure are in the | | | | PDT | | results section. | + +--------+ + + + | MAGNESIUM | Routin | 09/08/2017 | | Results for this | | | e | 4:52 AM | | procedure are in the | | | | PDT | | results section. | + +--------+ + + + | COMPREHENSIVE | Routin | 09/08/2017 | | Results for this | | METABOLIC PANEL | e | 4:52 AM | | procedure are in the | | | | PDT | | results section. | + +--------+ + + + | CELL COUNT, BODY | Routin | 09/07/2017 | | Results for this | | FLUID | e | 8:05 AM | | procedure are in the | | | | PDT | | results section. | + +--------+ + + + | CULTURE, BODY FLUID, | Routin | 09/07/2017 | | Results for this | | STERILE, SMEAR, | e | 8:05 AM | | procedure are in the | | WITH ANAEROBES | | PDT | | results section. | + +--------+ + + + | PROCALCITONIN, SERUM | Routin | 09/07/2017 | | Results for this | | | e | 7:18 AM | | procedure are in the | | | | PDT | | results section. | + +--------+ + + + | VITAMIN D, | Routin | 09/07/2017 | | Results for this | | DEFICIENCY SCREEN | e | 7:18 AM | | procedure are in the | | (25-HYDROXY) | | PDT | | results section. | + +--------+ + + + | PARATHYROID HORMONE, | Routin | 09/07/2017 | | Results for this | | INTACT AND CALCIUM | e | 7:18 AM | | procedure are in the | | | | PDT | | results section. | + +--------+ + + + | US NON-OB | Routin | 09/07/2017 | | Results for this | | TRANSVAGINAL | e | 2:36 AM | | procedure are in the | | | | PDT | | results section. | + +--------+ + + + | LACTIC ACID | Routin | 09/07/2017 | | Results for this | | | e | 1:05 AM | | procedure are in the | | | | PDT | | results section. | + +--------+ + + + | CT ABDOMEN PELVIS W | Routin | 09/07/2017 | | Results for this | | CONTRAST | e | 12:08 AM | | procedure are in the | | | | PDT | | results section. | + +--------+ + + + | US ABDOMEN LIMITED | Routin | 09/06/2017 | | Results for this | | | e | 11:19 PM | | procedure are in the | | | | PDT | | results section. | + +--------+ + + + | EXTERNAL LAB: [facility] | Routin | 09/06/2017 | | Results for this | | | e | 9:46 PM | | procedure are in the | | | | PDT | | results section. | + +--------+ + + + | LIPASE | Routin | 09/06/2017 | | Results for this | | | e | 9:46 PM | | procedure are in the | | | | PDT | | results section. | + +--------+ + + + | LACTIC ACID | Routin | 09/06/2017 | | Results for this | | | e | 9:46 PM | | procedure are in the | | | | PDT | | results section. | + +--------+ + + + | COMPREHENSIVE | Routin | 09/06/2017 | | Results for this | | METABOLIC PANEL | e | 9:46 PM | | procedure are in the | | | | PDT | | results section. | + +--------+ + + + documented in this encounter Results External Lab: [facility] (09/13/2017 5:49 AM PDT) + + + + + + | Component | Value | Ref Range | Performed | Pathologist | | | | | At | Signature | + + + + + + | WBC | 12.01 (H) | 3.80 - 11.00 | EXTERNAL | | | | | K/uL | LAB | | + + + + + + | Red Blood | 4.34 | 3.70 - 5.10 | EXTERNAL | | | Cells | | M/uL | LAB | | | Counted | | | | | + + + + + + | Hemoglobin | 12.5 | 11.3 - 15.5 | EXTERNAL | | | | | g/dL | LAB | | + + + + + + | Hematocrit, | 37.1 | 34.0 - 46.0 % | EXTERNAL | | | POC | | | LAB | | + + + + + + | MCV | 85.6 | 80.0 - 100.0 fl | EXTERNAL | | | | | | LAB | | + + + + + + | MCH | 28.9 | 27.0 - 34.0 pg | EXTERNAL [...] + + + + | Platelet | 310 | 150 - 400 K/uL | EXTERNAL [...] + + + + | Lymphocytes | 15 | % | EXTERNAL | | | Manual | | | LAB | | + + + + + + | Monocytes | 10 | % | EXTERNAL | | | Manual | | | LAB | | + + + + + + | Eosinophils | 1 | % | EXTERNAL | | | Manual | | | LAB | | + + + + + + | Absolute | 8.29 (H) | 1.90 - 7.40 | EXTERNAL | | | Neutrophils | | K/uL | LAB | | + + + + + + | Bands | 0.36 (H) | 0.00 - 0.20 | EXTERNAL | | | Manual | | K/uL | LAB | | + + + + + + | Absolute | 0.24 (H) | K/uL | EXTERNAL | | | 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 | | | | | + + + + + + | Absolute | 1.80 | 1.00 - 3.90 | EXTERNAL | | | Lymphocytes | | K/uL | LAB | | + + + + + + | Absolute | 1.20 (H) | 0.00 - 0.80 | EXTERNAL | | | Monocytes | | K/uL | LAB | | + + + + + + | Absolute | 0.12 | 0.00 - 0.50 | EXTERNAL | | | Eosinophils | | K/uL | LAB | | + + + + + + | RBC | 1+Comment: ANISONORMAL | | EXTERNAL | | | Morphology | PLT MORPHTesting | | LAB | | | | performed at [facility], [address] | | | | | | [address], | | | | | | [place] [address] | | | | | | | [...] | | + +---------+ + + Magnesium (09/13/2017 5:49 AM PDT) + + + + + + | Component | Value | Ref Range | Performed | Pathologist | | | | | At | Signature | + + + + + + | Magnesium | 2.4Comment: Testing | 1.7 - 2.4 mg/dL | EXTERNAL | | | | performed at [facility], [address] | | LAB | | | | [address], | | | | | | [place] [address] | | | | + + + [...] + +---------+ + + Comprehensive Metabolic Panel (09/13/2017 5:49 AM PDT) + + + + [...] 24 | 8 - 25 mg/dL | EXTERNAL [...] + + + + | Calcium | 9.6 | 8.5 - 10.5 | EXTERNAL | | | | | mg/dL | LAB | | + + + + + + | Protein, | 7.3 | 6.3 - 8.2 g/dL | EXTERNAL | | | Total | | | LAB | | + + + + + + | Albumin | 2.3 (L) | 3.6 - 5.0 g/dL | EXTERNAL | | | | | | LAB | | + + + + + + | Globulin | 5.0 (H) | 1.3 - 4.9 [...] + + + + | ALP, | 108 | 35 - 115 U/L | EXTERNAL | | | External | | | LAB | | + + + + + + | AST | 28 | 10 - 45 U/L | EXTERNAL | | | | | | LAB | | + + + + + + | ALT | 32 | 10 - 65 U/L | EXTERNAL [...] | | | | | | at [facility], [address] | | | | | | [facility], | | | | | | [place] [address] | | | | + + + [...] + +---------+ + + External Lab: CBC (09/12/2017 4:56 AM PDT) + + + + + + | Component | Value | Ref Range | Performed | Pathologist | | | | | At | Signature | + + + + + + | WBC | 10.90 | 3.80 - 11.00 | EXTERNAL | | | | | K/uL | LAB | | + + + + + + | Red Blood | 4.16 | 3.70 - 5.10 | EXTERNAL | | | Cells | | M/uL | LAB | | | Counted | | | | | + + + + + + | Hemoglobin | 12.2 | 11.3 - 15.5 | EXTERNAL | | | | | g/dL | LAB | | + + + + + + | Hematocrit, | 35.6 | 34.0 - 46.0 % | EXTERNAL | | | POC | | | LAB | | + + + + + + | MCV | 85.7 | 80.0 - 100.0 fl | EXTERNAL | | | | | | LAB | | + + + + + + | MCH | 29.3 | 27.0 - 34.0 pg | EXTERNAL | | | | | | LAB | | + + + + + + | MCHC | 34.1 | 32.0 - 35.5 | EXTERNAL | | | | | g/dL | LAB | | + + + + + + | RDW-CV | 45.9 | 37 - 53 fl | EXTERNAL | | | | | | LAB | | + + + + + + | Platelet | 300 | 150 - 400 K/uL | EXTERNAL | | | Count | | | LAB | | | Plasma | | | | | + + + + + + | MPV | 8.3 | fl | EXTERNAL | | | | | | LAB | | + + + + + + | Differentia | MANUAL | | EXTERNAL | | | l Type | | | LAB | | + + + + + + | Segmented | 78 | % | [...] + + + + | Lymphocytes | 8 | % | EXTERNAL | | | [...] + + + + | Absolute | 8.50 (H) | 1.90 - 7.40 | EXTERNAL | | | Neutrophils | | K/uL | LAB | | + + + + + + | Bands | 0.22 (H) | 0.00 - 0.20 | EXTERNAL | | | Manual | | K/uL | LAB | | + + + + + + | Absolute | 0.11 (H) | K/uL | EXTERNAL | | | 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 | | | | | + + + + + + | Absolute | 0.87 (L) | 1.00 - 3.90 | EXTERNAL | | | Lymphocytes | | K/uL | LAB | | + + + + + + | Absolute | 0.76 | 0.00 - 0.80 | EXTERNAL | | | Monocytes | | K/uL | LAB | | + + + + + + | Absolute | 0.44 | 0.00 - 0.50 | EXTERNAL | | | Eosinophils | | K/uL | LAB | | + + + + + + | RBC | RBC AND PLT MORPHOLOGY | | EXTERNAL | | | Morphology | APPEAR NORMALComment: | | LAB | | | | Testing performed at | | | | | | [facility], [address] | | | | | | [place] | | | | | | [id number] | | | | + + + + + + + + | Specimen | + + | Blood specimen | | (specimen) | + + + +---------+ + + | Performing | Address | City/State/Zipcode | Phone Number | | Organization | | | | + +---------+ + + | EXTERNAL LAB | | | | + +---------+ + + Magnesium (09/12/2017 4:56 AM PDT) + + + + + + | Component | Value | Ref Range | Performed | Pathologist | | | | | At | Signature | + + + + + + | Magnesium | 2.2Comment: Testing | 1.7 - 2.4 mg/dL | EXTERNAL | | | | performed at [facility], [address] | | LAB | | | | [address], | | | | | | [place] [address] | | | | + + + [...] + +---------+ + + Comprehensive Metabolic Panel (09/12/2017 4:56 AM PDT) + + + + + [...] + + + + | Glucose, | 123 (H) | 65 - 99 mg/dL | EXTERNAL | | | Fasting | | | LAB | | + + + + + + | BUN | 24 | 8 - 25 mg/dL | EXTERNAL [...] + + + + | Globulin | 4.8 | 1.3 - 4.9 g/dL | EXTERNAL [...] + + + + | ALP, | 103 | 35 - 115 U/L | EXTERNAL | | | External | | | LAB | | + + + + + + | AST | 28 | 10 - 45 U/L | EXTERNAL | | | | | | LAB | | + + + + + + | ALT | 26 | 10 - 65 U/L | EXTERNAL [...] Agarwal, | | | | | | [place] [address] | | | | + + + + + + + + | Specimen | + + | Blood specimen | | (specimen) | + + + +---------+ + + | Performing | Address | City/State/Zipcode | Phone Number | | Organization | | | | + +---------+ + + | EXTERNAL LAB | | | | + +---------+ + + Helicobacter Pylori AG Stool (09/11/2017 12:35 PM PDT) + + | Specimen | + + | Stool specimen | | (specimen) | + + + + + | Narrative | Performed At | + + + | HELICOBACTER PYLORI AG Negative Reference | EXTERNAL LAB | | range: Negative Testing performed by [facility], [address], | | | [place] [address] | | + + + + +---------+ + + | Performing | Address | City/State/Zipcode | Phone Number | | Organization | | | | + +---------+ + + | EXTERNAL LAB | | | | + +---------+ + + External Lab: CBC (09/11/2017 5:56 AM PDT) + + + + + + | Component | Value | Ref Range | Performed | Pathologist | | | | | At | Signature | + + + + + + | WBC | 10.22 | 3.80 - 11.00 | EXTERNAL | | | | | K/uL | LAB | | + + + + + + | Red Blood | 4.05 | 3.70 - 5.10 | EXTERNAL | | | Cells | | M/uL | LAB | | | Counted | | | | | + + + + + + | Hemoglobin | 11.8 | 11.3 - 15.5 | EXTERNAL | | | | | g/dL | LAB | | + + + + + + | Hematocrit, | 34.9 | 34.0 - 46.0 % | EXTERNAL | | | POC | | | LAB | | + + + + + + | MCV | 86.2 | 80.0 - 100.0 fl | EXTERNAL | | | | | | LAB | | + + + + + + | MCH | 29.1 | 27.0 - 34.0 pg | EXTERNAL [...] + + + + | Platelet | 333 | 150 - 400 K/uL | EXTERNAL | | | Count | | | LAB | | | Plasma | | | | | + + + + + + | MPV | 8.3 | fl | EXTERNAL | | | | | | LAB | | + + + + + + | Differentia | AUTOMATED | | EXTERNAL | | | l Type | | | LAB | | + + + + + + | % Segmented | 77.87 | % | EXTERNAL | | | | | | LAB | | | Neutrophils | | | | | + + + + + + | % | 10.15 | % | EXTERNAL | | | Lymphocytes | | | LAB | | + + + + + + | % Monocytes | 8.97 | % | EXTERNAL | | | | | | LAB | | + + + + + + | % | 2.62 | % | EXTERNAL | | | Eosinophils | | | LAB | | + + + + + + | % Basophils | 0.39 | % | EXTERNAL | | | | | | LAB | | + + + + + + | Absolute | 7.95 (H) | 1.90 - 7.40 | EXTERNAL | | | Segmented | | K/uL | LAB | | | Neutrophils | | | | | + + + + + + | Absolute | 1.04 | 1.00 - 3.90 | EXTERNAL | | | Lymphocytes | | K/uL | LAB | | + + + + + + | Absolute | 0.92 (H) | 0.00 - 0.80 | EXTERNAL | | | Monocytes | | K/uL | LAB | | + + + + + + | Absolute | 0.27 | 0.00 - 0.50 | EXTERNAL | | | Eosinophils | | K/uL | LAB | | + + + + + + | Absolute | 0.04Comment: Testing | 0.00 - 0.10 | EXTERNAL | | | Basophils | performed at [facility], [address] | [address] | LAB | | | | [address], | | | | | | [place] [address] | | | | + + + + + + + + | Specimen | + + | Blood specimen | | (specimen) | + + + +---------+ + + | Performing | Address | City/State/Zipcode | Phone Number | | Organization | | | | + +---------+ + + | EXTERNAL LAB | | | | + +---------+ + + Magnesium (09/11/2017 5:56 AM PDT) + + + + + + | Component | Value | Ref Range | Performed | Pathologist | | | | | At | Signature | + + + + + + | Magnesium | 2.3Comment: Testing | 1.7 - 2.4 mg/dL | EXTERNAL | | | | performed at [facility], [address] | | LAB | | | | [address], | | | | | | [place] [address] | | | | + + + + + + + + | Specimen | + + | Blood specimen | | (specimen) | + + + +---------+ + + | Performing | Address | City/State/Zipcode | Phone Number | | Organization | | | | + +---------+ + + | EXTERNAL LAB | | | | + +---------+ + + Vancomycin Level (09/11/2017 5:56 AM PDT) + + + + + + | Component | Value | Ref Range | Performed | Pathologist | | | | | At | Signature | + + + + + + | Vancomycin | 18.13Comment: Testing | ug/mL | EXTERNAL | | | Random | performed at [facility] | | LAB | | | | [address];[place] | | | | | | [address] | | | | + + + [...] + +---------+ + + Comprehensive Metabolic Panel (09/11/2017 5:56 AM PDT) + + + + + [...] + + + + | Glucose, | 111 (H) | 65 - 99 mg/dL | EXTERNAL | | | Fasting | | | LAB | | + + + + + + | BUN | 29 (H) | 8 - 25 mg/dL | EXTERNAL | | | | | | LAB | | + + + + + + | Creatinine | 13.0 (H) | 0.50 - 1.00 | EXTERNAL [...] + + + + | Globulin | 4.8 | 1.3 - 4.9 g/dL | EXTERNAL [...] + + + + | ALP, | 101 | 35 - 115 U/L | EXTERNAL | | | External | | | LAB | | + + + + + + | AST | 19 | 10 - 45 U/L | EXTERNAL | | | | | | LAB | | + + + + + + | ALT | 20 | 10 - 65 U/L | EXTERNAL [...] | | | | | | at [facility], [address] | | | | | | [address], | | | | | | [place] [address] | | | | + + + + + + + + | Specimen | + + | Blood specimen | | (specimen) | + + + +---------+ + + | Performing | Address | City/State/Zipcode | Phone Number | | Organization | | | | + +---------+ + + | EXTERNAL LAB | | | | + +---------+ + + Helicobactor pylori Biopsy (09/10/2017 5:49 PM PDT) + + + + + + | Component | Value | Ref Range | Performed | Pathologist | | | | | At | Signature | + + + + + + | 24hr Read | NEGATIVEComment: Testing | | EXTERNAL | | | | performed at [facility];[address] | | LAB | | | | [address];[place], [place] | | | | | | [address] | | | | + + + + + + + + | Specimen | + + | | + + + +---------+ + + | Performing | Address | City/State/Zipcode | Phone Number | | Organization | | | | + +---------+ + + | EXTERNAL LAB | | | | + +---------+ + + External Lab: BLAINE (09/10/2017 6:06 AM PDT) + + + + + + | Component | Value | Ref Range | Performed | Pathologist | | | | | At | Signature | + + + + + + | WBC | 10.63 | 3.80 - 11.00 | EXTERNAL | | | | | K/uL | LAB | | + + + + + + | Red Blood | 4.05 | 3.70 - 5.10 | EXTERNAL | | | Cells | | M/uL | LAB | | | Counted | | | | | + + + + + + | Hemoglobin | 11.6 | 11.3 - 15.5 | EXTERNAL | | | | | g/dL | LAB | | + + + + + + | Hematocrit, | 34.9 | 34.0 - 46.0 % | EXTERNAL | | | POC | | | LAB | | + + + + + + | MCV | 86.1 | 80.0 - 100.0 fl | EXTERNAL | | | | | | LAB | | + + + + + + | MCH | 28.6 | 27.0 - 34.0 pg | EXTERNAL [...] + + + | % Segmented | 78.69 | % | EXTERNAL | | | | | | LAB | | | Neutrophils | | | | | + + + + + + | % | 10.25 | % | EXTERNAL | | | Lymphocytes | | | LAB | | + + + + + + | % Monocytes | 7.95 | % | EXTERNAL | | | | | | LAB | | + + + + + + | % | 2.57 | % | EXTERNAL | | | Eosinophils | | | LAB | | + + + + + + | % Basophils | 0.54 | % | EXTERNAL | | | | | | LAB | | + + + + + + | Absolute | 8.37 (H) | 1.90 - 7.40 | EXTERNAL | | | Segmented | | K/uL | LAB | | | Neutrophils | | | | | + + + + + + | Absolute | 1.09 | 1.00 - 3.90 | EXTERNAL | | | Lymphocytes | | K/uL | LAB | | + + + + + + | Absolute | 0.85 (H) | 0.00 - 0.80 | EXTERNAL | | | Monocytes | | K/uL | LAB | | + + + + + + | Absolute | 0.27 | 0.00 - 0.50 | EXTERNAL | | | Eosinophils | | K/uL | LAB | | + + + + + + | Absolute | 0.06Comment: Testing | 0.00 - 0.10 | EXTERNAL | | | Basophils | performed at [facility], [address] | [address] | LAB | | | | [address], | | | | | | [place] [address] | | | | + + + + + + + + | Specimen | + + | Blood specimen | | (specimen) | + + + +---------+ + + | Performing | Address | City/State/Zipcode | Phone Number | | Organization | | | | + +---------+ + + | EXTERNAL LAB | | | | + +---------+ + + Phosphorus (09/10/2017 6:06 AM PDT) + + + + + + | Component | Value | Ref Range | Performed | Pathologist | | | | | At | Signature | + + + + + + | PHOSPHORUS | 3.9Comment: Testing | 2.3 - 4.8 mg/dL | EXTERNAL | | | | performed at [facility];[address] | | LAB | | | | [address];[place], [place] | | | | | | [address] | | | | + + + + + + + + | Specimen | + + | Blood specimen | | (specimen) | + + + +---------+ + + | Performing | Address | City/State/Zipcode | Phone Number | | Organization | | | | + +---------+ + + | EXTERNAL LAB | | | | + +---------+ + + Magnesium (09/10/2017 6:06 AM PDT) + + + + + + | Component | Value | Ref Range | Performed | Pathologist | | | | | At | Signature | + + + + + + | Magnesium | 2.1Comment: Testing | 1.7 - 2.4 mg/dL | EXTERNAL | | | | performed at [facility];[address] | | LAB | | | | [address];[place] | | | | | | [address] | | | | + + + + + + + + | Specimen | + + | Blood specimen | | (specimen) | + + + +---------+ + + | Performing | Address | City/State/Zipcode | Phone Number | | Organization | | | | + +---------+ + + | EXTERNAL LAB | | | | + +---------+ + + Vancomycin Level (09/10/2017 6:06 AM PDT) + + + + + + | Component | Value | Ref Range | Performed | Pathologist | | | | | At | Signature | + + + + + + | Vancomycin | 22.40Comment: Testing | ug/mL | EXTERNAL | | | Random | performed at [facility];[address] | | LAB | | | | [address];[place] | | | | | | [address] | | | | + + + [...] + +---------+ + + Comprehensive Metabolic Panel (09/10/2017 6:06 AM PDT) + + + + + [...] + + + + | Creatinine | 13 (H) | 0.50 - 1.00 | EXTERNAL [...] + + + + | Protein, | 7.2 | 6.3 - 8.2 g/dL | EXTERNAL | | | Total | | | LAB | | + + + + + + | Albumin | 2.3 (L) | 3.6 - 5.0 g/dL | EXTERNAL | | | | | | LAB | | + + + + + + | Globulin | 4.9 | 1.3 - 4.9 g/dL | EXTERNAL [...] + + + + | ALP, | 96 | 35 - 115 U/L | EXTERNAL [...] | | | | | | at [facility];[address] [place] [address] | | | | | | [facility];[place] [address] | | | | + + + [...] + +---------+ + + External Lab: CBC (09/09/2017 10:22 AM PDT) + + + + + + | Component | Value | Ref Range | Performed | Pathologist | | | | | At | Signature | + + + + + + | WBC | 11.31 (H) | 3.80 - 11.00 | EXTERNAL | | | | | K/uL | LAB | | + + + + + + | Red Blood | 3.76 | 3.70 - 5.10 | EXTERNAL | | | Cells | | M/uL | LAB | | | Counted | | | | | + + + + + + | Hemoglobin | 11.1 (L) | 11.3 - 15.5 | EXTERNAL | | | | | g/dL | LAB | | + + + + + + | Hematocrit, | 32.2 (L) | 34.0 - 46.0 % | EXTERNAL | | | POC | | | LAB | | + + + + + + | MCV | 85.8 | 80.0 - 100.0 fl | EXTERNAL | | | | | | LAB | | + + + + + + | MCH | 29.6 | 27.0 - 34.0 pg | EXTERNAL | | | | | | LAB | | + + + + + + | MCHC | 34.5 | 32.0 - 35.5 | EXTERNAL | | | | | g/dL | LAB | | + + + + + + | RDW-CV | 44.2 | 37 - 53 fl | EXTERNAL | | | | | | LAB | | + + + + + + | Platelet | 289 | 150 - 400 K/uL | EXTERNAL | | | Count | | | LAB | | | Plasma | | | | | + + + + + + | MPV | 7.8 | fl | EXTERNAL | | | | | | LAB | | + + + + + + | Differentia | AUTOMATED | | EXTERNAL | | | l Type | | | LAB | | + + + + + + | % Segmented | 81.02 | % | EXTERNAL | | | | | | LAB | | | Neutrophils | | | | | + + + + + + | % | 11.03 | % | EXTERNAL | | | Lymphocytes | | | LAB | | + + + + + + | % Monocytes | 5.49 | % | EXTERNAL | | | | | | LAB | | + + + + + + | % | 2.05 | % | EXTERNAL | | | Eosinophils | | | LAB | | + + + + + + | % Basophils | 0.41 | % | EXTERNAL | | | | | | LAB | | + + + + + + | Absolute | 9.16 (H) | 1.90 - 7.40 | EXTERNAL | | | Segmented | | K/uL | LAB | | | Neutrophils | | | | | + + + + + + | Absolute | 1.25 | 1.00 - 3.90 | EXTERNAL | | | Lymphocytes | | K/uL | LAB | | + + + + + + | Absolute | 0.62 | 0.00 - 0.80 | EXTERNAL | [...] | | | Basophils | performed at [facility];[address] | [address] | LAB | | | | [address];[place], [place] | | | | | | [address] | | | | + + + + + + + + | Specimen | + + | Blood specimen | | (specimen) | + + + +---------+ + + | Performing | Address | City/State/Zipcode | Phone Number | | Organization | | | | + +---------+ + + | EXTERNAL LAB | | | | + +---------+ + + Phosphorus (09/09/2017 5:55 AM PDT) + + + + + + | Component | Value | Ref Range | Performed | Pathologist | | | | | At | Signature | + + + + + + | PHOSPHORUS | 3.9Comment: Testing | 2.3 - 4.8 mg/dL | EXTERNAL | | | | performed at [facility] | | LAB | | | | [address] [facility];[place], [place] | | | | | | [address] | | | | + + + + + + + + | Specimen | + + | Blood specimen | | (specimen) | + + + +---------+ + + | Performing | Address | City/State/Zipcode | Phone Number | | Organization | | | | + +---------+ + + | EXTERNAL LAB | | | | + +---------+ + + Vancomycin Level (09/09/2017 5:55 AM PDT) + + + + + + | Component | Value | Ref Range | Performed | Pathologist | | | | | At | Signature | + + + + + + | Vancomycin | 25.01Comment: Testing | ug/mL | EXTERNAL | | | Random | performed at [facility];[address] | | LAB | | | | [address];[place], [place] | | | | | | [address] | | | | + + + [...] + +---------+ + + Comprehensive Metabolic Panel (09/09/2017 5:55 AM PDT) + + + + + [...] + + + + | Creatinine | 14 (H) | 0.50 - 1.00 | EXTERNAL [...] + + + + | Protein, | 6.5 | 6.3 - 8.2 g/dL | EXTERNAL | | | Total | | | LAB | | + + + + + + | Albumin | 2.1 (L) | 3.6 - 5.0 g/dL | EXTERNAL | | | | | | LAB | | + + + + + + | Globulin | 4.3 | 1.3 - 4.9 g/dL | EXTERNAL [...] + + + + | ALP, | 84 | 35 - 115 U/L | EXTERNAL | | | External | | | LAB | | + + + + + + | AST | 16 | 10 - 45 U/L | EXTERNAL | | | | | | LAB | | + + + + + + | ALT | 14 | 10 - 65 U/L | EXTERNAL [...] | | | | | | at [facility];[address] [place] [address] | | | | | | [facility];[place] [address] | | | | + + + [...] + +---------+ + + External Lab: CBC (09/08/2017 4:52 AM PDT) + + + + + + | Component | Value | Ref Range | Performed | Pathologist | | | | | At | Signature | + + + + + + | WBC | 10.54 | 3.80 - 11.00 | EXTERNAL | | | | | K/uL | LAB | | + + + + + + | Red Blood | 3.62 (L) | 3.70 - 5.10 | EXTERNAL | | | Cells | | M/uL | LAB | | | Counted | | | | | + + + + + + | Hemoglobin | 10.5 (L) | 11.3 - 15.5 | EXTERNAL | | | | | g/dL | LAB | | + + + + + + | Hematocrit, | 31.1 (L) | 34.0 - 46.0 % | EXTERNAL | | | POC | | | LAB | | + + + + + + | MCV | 86.0 | 80.0 - 100.0 fl | EXTERNAL [...] + + + + | Platelet | 237 | 150 - 400 K/uL | EXTERNAL [...] + + + | % Segmented | 77.18 | % | EXTERNAL | | | | | | LAB | | | Neutrophils | | | | | + + + + + + | % | 13.19 | % | EXTERNAL | | | Lymphocytes | | | LAB | | + + + + + + | % Monocytes | 7.68 | % | EXTERNAL | | | | | | LAB | | + + + + + + | % | 1.54 | % | EXTERNAL | | | Eosinophils | | | LAB | | + + + + + + | % Basophils | 0.41 | % | EXTERNAL | | | | | | LAB | | + + + + + + | Absolute | 8.13 (H) | 1.90 - 7.40 | EXTERNAL | | | Segmented | | K/uL | LAB | | | Neutrophils | | | | | + + + + + + | Absolute | 1.39 | 1.00 - 3.90 | EXTERNAL | | | Lymphocytes | | K/uL | LAB | | + + + + + + | Absolute | 0.81 (H) | 0.00 - 0.80 | EXTERNAL | | | Monocytes | | K/uL | LAB | | + + + + + + | Absolute | 0.16 | 0.00 - 0.50 | EXTERNAL | | | Eosinophils | | K/uL | LAB | | + + + + + + | Absolute | 0.04Comment: Testing | 0.00 - 0.10 | EXTERNAL | | | Basophils | performed at [facility], [address] | [address] | LAB | | | | [address], | | | | | | [place] [address] | | | | + + + + + + + + | Specimen | + + | Blood specimen | | (specimen) | + + + +---------+ + + | Performing | Address | City/State/Zipcode | Phone Number | | Organization | | | | + +---------+ + + | EXTERNAL LAB | | | | + +---------+ + + Phosphorus (09/08/2017 4:52 AM PDT) + + + + + + | Component | Value | Ref Range | Performed | Pathologist | | | | | At | Signature | + + + + + + | PHOSPHORUS | 3.7Comment: Testing | 2.3 - 4.8 mg/dL | EXTERNAL | | | | performed at [facility];[address] | | LAB | | | | [address];[place], [place] | | | | | | [address] | | | | + + + + + + + + | Specimen | + + | Blood specimen | | (specimen) | + + + +---------+ + + | Performing | Address | City/State/Zipcode | Phone Number | | Organization | | | | + +---------+ + + | EXTERNAL LAB | | | | + +---------+ + + Magnesium (09/08/2017 4:52 AM PDT) + + + + + + | Component | Value | Ref Range | Performed | Pathologist | | | | | At | Signature | + + + + + + | Magnesium | 2.0Comment: Testing | 1.7 - 2.4 mg/dL | EXTERNAL | | | | performed at [facility];[address] | | LAB | | | | [address];[place] | | | | | | [address] | | | | + + + [...] + +---------+ + + Comprehensive Metabolic Panel (09/08/2017 4:52 AM PDT) + + + + + [...] 88 | 65 - 99 mg/dL | EXTERNAL | | | Fasting | | | LAB | | + + + + + + | BUN | 35 (H) | 8 - 25 mg/dL | EXTERNAL | | | | | | LAB | | + + + + + + | Creatinine | 14 (H) | 0.50 - 1.00 | EXTERNAL [...] + + + + | Protein, | 6.5 | 6.3 - 8.2 g/dL | EXTERNAL | | | Total | | | LAB | | + + + + + + | Albumin | 2.2 (L) | 3.6 - 5.0 g/dL | EXTERNAL | | | | | | LAB | | + + + + + + | Globulin | 4.3 | 1.3 - 4.9 g/dL | EXTERNAL [...] + + + + | ALP, | 84 | 35 - 115 U/L | EXTERNAL [...] | | | | | | at [facility];[address] [place] [address] | | | | | | [facility];[place] [address] | | | | + + + [...] Culture, Body Fluid, Sterile, Smear, with Anaerobes (09/07/2017 8:05 AM PDT) + + | Specimen | + + | | + + + + + | Narrative | Performed At | + + + | Specimen Description PERITONEAL FLUID GRAM | EXTERNAL LAB | | STAIN 1+ | | | WBC'S SEEN | [...] +---------+ + + Cell Count, Body Fluid (09/07/2017 8:05 AM PDT) + + | Specimen | + + | | + + + + + | Narrative | Performed At | + + + | FLUID TYPE PERITONEAL FLUID | EXTERNAL LAB | | COLOR COLORLESS | | | APPEARANCE CLEAR RBC'S | | | <20253 TOTAL NUCLEATED | | | CELLS 127 NEUTROPHILS | | | 56 LYMPHOCYTES | | | 5 MONOCYTES/MACROPHAGES | | | 39 CELLS COUNTED 100 | | | Testing performed at [facility];[address] [place] [address];[place] [address] | | + + + + +---------+ + + | Performing | Address | City/State/Zipcode | Phone Number | | Organization | | | | + +---------+ + + | EXTERNAL LAB | | | | + +---------+ + + Procalcitonin (09/07/2017 7:18 AM PDT) + + + + + + | Component | Value | Ref Range | Performed | Pathologist | | | | | At | Signature | + + + + + + | PROCALCITON | 1.52 (H)Comment: | ng/mL | EXTERNAL | | [...] | | | | | | at [facility];[address] [place] [address] | | | | | | [facility];[place] [address] | | | | + + + + + + + + | Specimen | + + | | + + + +---------+ + + | Performing | Address | City/State/Zipcode | Phone Number | | Organization | | | | + +---------+ + + | EXTERNAL LAB | | | | + +---------+ + + Parathyroid Hormone, Intact and Calcium (09/07/2017 7:18 AM PDT) + + + + + + | Component | Value | Ref Range | Performed | Pathologist | | | | | At | Signature | + + + + + + | Calcium | 9.0 | 8.5 - 10.5 | EXTERNAL | | | | | mg/dL | LAB | | + + + + + + | PTH Intact | 23.4Comment: Nomogram | pg/mL | EXTERNAL | | | | suggests Normal | | LAB | | | | Parathryoid | | | | | | status.Diagnosis of | | | | | | parathyroid disease | | | | | | requires both clinical | | | | | | and laboratory | | | | | | data.Testing performed | | | | | | at [facility], [address] | | | | | | [facility], | | | | | | [place] [address] | | | | + + + + + + + + | Specimen | + + | Blood specimen | | (specimen) | + + + +---------+ + + | Performing | Address | City/State/Zipcode | Phone Number | | Organization | | | | + +---------+ + + | EXTERNAL LAB | | | | + +---------+ + + Vitamin D, Deficiency Screen (25-Hydroxy) (09/07/2017 7:18 AM PDT) + + + + + + | Component | Value | Ref Range | Performed | Pathologist | | | | | At | Signature | + + + + + + | Vit D, | 26 (L)Comment: <20 ng/mL | 30 - 150 ng/mL | EXTERNAL | | | 25-Hydroxy | Suggests | | LAB | | | | deficiency of 25-OH | | | | | | Vitamin D.20-29 ng/mL | | | | | | Suggests a relative | | | | | | insufficiency of 25-OH | | | | | | Vitamin D.30-150 ng/mL | | | | | | Suggests a sufficient | | | | | | level of 25-OH Vitamin | | | | | | D.>150 ng/mL Toxic | | | | | | level of 25-OH Vitamin | | | | | | D.Blood levels of 25 | | | | | | Hydroxy Vitamin D vary | | | | | | with the extent of sun | | | | | | exposure. Values tend to | | | | | | be highest in late | | | | | | summer and lowest in the | | | | | | spring. Values also | | | | | | tend to decrease with | | | | | | age, due to decreased | | | | | | precursor synthesis in | | | | | | the skin.Testing | | | | | | performed at [facility], [address] | | | | | | [facility], | | | | | | [place] [address] | | | | + + + [...] + +---------+ + + US Non-Ob Transvaginal (09/07/2017 2:36 AM PDT) + + | Specimen | + + | | + + + + + | Impressions | Performed At | + + + | 1. There is a complex multiseptated 3.8 x 3.5 x 3.1 cm lesion | | | within the right ovary. This may represent a hemorrhagic cyst or | | | endometrioma. Based on consensus guidelines, follow-up pelvic | | | ultrasound recommended at 6 weeks. 2. Possible 1.4 cm right-sided | | | paraovarian cyst. Attention on follow-up exam recommended. [facility] | | | Electronically signed by Star Boyd MD on Sep 07 2017 3:38AM | | | Referring Provider Line: [phone] ID: [id number] | | + + + + + + | Narrative | Performed At | + + + | EXAM: PELVIC ULTRASOUND EXAM DATE: 09/07/2017 02:37 AM. | | | CLINICAL HISTORY: Ovarian lesion seen on prior CT, further assessment | | | and characterization. COMPARISON: CT earlier today. TECHNIQUE: | | | Realtime transvaginal pelvic scan performed to identify the uterus | | | and adnexa and as an overview of other pelvic structures, with static | | | image documentation. FINDINGS: LMP: 08/08/2017. Uterus: | | | Uterus is normal in position and normal in configuration. Uterus | | | measures 7.3 cm. No evident uterine masses. Endometrium: | | | Endometrium measures 6.9 mm. No suspicious thickening or vascularity. | | | Cervix: No suspicious lesion. Small nabothian cyst. Right | | | Ovary: The right ovary measures 4.7 x 3.5 x 4.5 cm. There is a | | | complex, multiseptated appearing lesion measuring 3.8 x 3.5 x 3.1 cm. | | | Normal blood flow to the ovary. Left Ovary: Obscured by bowel gas. | | | Fluid: There is trace amount of fluid, within physiologic limits. | | | Other: Apparent small paraovarian hypoechoic 1.4 cm structure | | | adjacent to the right ovary. | | + + + + + | Procedure Note | + + | Endy, Rad Conversion - 06/24/2019 3:39 AM PDT EXAM:PELVIC ULTRASOUND EXAM DATE: | | 09/07/2017 02:37 AM. CLINICAL HISTORY: Ovarian lesion seen on prior CT, further | | assessment and characterization. COMPARISON: CT earlier today. TECHNIQUE: Realtime | | transvaginal pelvic scan performed to identify the uterus and adnexa and as an overview | | of other pelvic structures, with static image documentation. FINDINGS:LMP: 08/08/2017. | | Uterus: Uterus is normal in position and normal in configuration. Uterus measures 7.3 | | cm. No evident uterine masses. Endometrium: Endometrium measures 6.9 mm. No suspicious | | thickening or vascularity. Cervix: No suspicious lesion. Small nabothian cyst. Right | | Ovary: The right ovary measures 4.7 x 3.5 x 4.5 cm. There is a complex, multiseptated | | appearing lesion measuring 3.8 x 3.5 x 3.1 cm. Normal blood flow to the ovary. Left | | Ovary: Obscured by bowel gas. Fluid: There is trace amount of fluid, within physiologic | | limits. Other: Apparent small paraovarian hypoechoic 1.4 cm structure adjacent to the | | right ovary. IMPRESSION: 1. There is a complex multiseptated 3.8 x 3.5 x 3.1 cm lesion | | within the right ovary. This may represent a hemorrhagic cyst or endometrioma. Based on | | consensus guidelines, follow-up pelvic ultrasound recommended at 6 weeks.2. Possible 1.4 | | cm right-sided paraovarian cyst. Attention on follow-up exam recommended. [facility] | | Electronically signed by Star Boyd MD on Sep 07 2017 3:38AM Referring Provider | | Line: [phone] ID: [id number] | |Cervix: No suspicious lesion. Small nabothian cyst. | | | |Right Ovary: The right ovary measures 4.7 x 3.5 x 4.5 cm. There is a complex, multiseptated appearing lesion measuring 3.8 x 3.5 x 3.1 cm. Normal blood flow to the ovary. | | | |Left Ovary: Obscured by bowel gas. | | | |Fluid: There is trace amount of fluid, within physiologic limits. | | | |Other: Apparent small paraovarian hypoechoic 1.4 cm structure adjacent to the right ovary. | | | |IMPRESSION: | | | |1. There is a complex multiseptated 3.8 x 3.5 x 3.1 cm lesion within the right ovary. This may represent a hemorrhagic cyst or endometrioma. Based on consensus guidelines, follow-up p elvic ultrasound recommended at 6 weeks. | |2. Possible 1.4 cm right-sided paraovarian cyst. Attention on follow-up exam recommended. | | | |RADIA | | | | Electronically signed by Star Boyd MD on Sep 07 2017 3:38AM Referring Provider Line: [phone] ID: [id number] | + + Lactic Acid (09/07/2017 1:05 AM PDT) + + + + + + | Component | Value | Ref Range | Performed | Pathologist | | | | | At | Signature | + + + + + + | Lactate | 1.0Comment: Testing | 0.4 - 2.0 | EXTERNAL | | | | performed at [facility];888 | mmol/L | LAB | | | | [facility];[place], [place] | | | | | | [address] | | | | + + + + + + + + | Specimen | + + | | + + + +---------+ + + | Performing | Address | City/State/Zipcode | Phone Number | | Organization | | | | + +---------+ + + | EXTERNAL LAB | | | | + +---------+ + + CT Abdomen Pelvis w Contrast (09/07/2017 12:08 AM PDT) + + | Specimen | + + | | + + + + + | Impressions | Performed At | + + + | 1. Heterogeneous somewhat complex appearing right adnexal | | | abnormality measuring 4.9 x 4.5 cm (image 70 series 3), probably a | | | hemorrhagic ovarian cyst. Further assessment recommended with pelvic | | | ultrasound. 2. Again seen is a 1.3 cm left adrenal nodule, difficult | | | to accurately characterize. No significant change from the prior | | | 01/22/2017 study. Follow-up adrenal protocol CT recommended at January | | | 2017. RADIA Electronically signed by Star Boyd MD on Aug | | | 2016 1:06AM Referring Provider Line: [phone] ID: [id number] | | + + + + + + | Narrative | Performed At | + + + | EXAM: CT ABDOMEN AND PELVIS EXAM DATE: 09/07/2017 12:09 AM. | | | CLINICAL HISTORY: Abdominal pain. COMPARISONS: None. | | | TECHNIQUE: Routine helical CT imaging was performed through the | | | abdomen and pelvis. IV contrast: 70 mL Isovue-300. Enteric contrast: | | | No. Reconstructions: Coronal and sagittal. In accordance with CT | | | protocol optimization, one or more of the following dose reduction | | | techniques were utilized for this exam: automated exposure control, | | | adjustment of mA and/or KV based on patient size, or use of iterative | | | reconstructive technique. FINDINGS: ABDOMEN: Liver: No | | | significant abnormality. Stomach/Distal Esophagus: No significant | | | abnormality. Gallbladder: No significant abnormality. Bile | | | Ducts: No significant abnormality. Pancreas: No significant | | | abnormality. Spleen: No significant abnormality. Kidneys: No | | | solid appearing lesion. No hydronephrosis. Adrenals: There is a | | | small nodule within the left adrenal measuring 13 mm (image 23 series | | | 3). This is difficult to accurately characterize on this exam. | | | Bowel: No obstruction. Average fecal residual. Appendix: Normal. | | | Lymph Nodes: No pathologically enlarged nodes. Vasculature: | | | Normal caliber aorta. Fluid: No significant free fluid. | | | Abdominal Wall: No significant abnormality. Other: No significant | | | abnormality. PELVIS: Uterus and ovaries: There is a heterogeneous | | | appearing right adnexal abnormality measuring 4.5 x 4.9 cm (image 70 | | | series 3). Bladder: Decompressed, precluding assessment. Lymph | | | Nodes: No pathologically enlarged nodes. Fluid: No significant | | | free fluid. Other: Peritoneal dialysis catheter is looped within | | | the anterior pelvis. BONES: No suspicious bony lesions. LOWER | | | CHEST: No significant consolidation or effusion. | | + + + + + | Procedure Note | + + | Endy, Rad Conversion - 06/24/2019 3:39 AM PDT EXAM:CT ABDOMEN AND PELVIS EXAM DATE: | | 09/07/2017 12:09 AM. CLINICAL HISTORY: Abdominal pain. COMPARISONS: None. TECHNIQUE: | | Routine helical CT imaging was performed through the abdomen and pelvis. IV contrast: 70 | | mL Isovue-300. Enteric contrast: No. Reconstructions: Coronal and sagittal. In | | accordance with CT protocol optimization, one or more of the following dose reduction | | techniques were utilized for this exam: automated exposure control, adjustment of mA | | and/or KV based on patient size, or use of iterative reconstructive technique. | | FINDINGS:ABDOMEN:Liver: No significant abnormality. Stomach/Distal Esophagus: No | | significant abnormality. Gallbladder: No significant abnormality. Bile Ducts: No | | significant abnormality. Pancreas: No significant abnormality. Spleen: No significant | | abnormality. Kidneys: No solid appearing lesion. No hydronephrosis. Adrenals: There is a | | small nodule within the left adrenal measuring 13 mm (image 23 series 3). This is | | difficult to accurately characterize on this exam. Bowel: No obstruction. Average fecal | | residual. Appendix: Normal. Lymph Nodes: No pathologically enlarged nodes. Vasculature: | | Normal caliber aorta. Fluid: No significant free fluid. Abdominal Wall: No significant | | abnormality. Other: No significant abnormality. PELVIS:Uterus and ovaries: There is a | | heterogeneous appearing right adnexal abnormality measuring 4.5 x 4.9 cm (image 70 | | series 3). Bladder: Decompressed, precluding assessment. Lymph Nodes: No pathologically | | enlarged nodes. Fluid: No significant free fluid. Other: Peritoneal dialysis catheter is | | looped within the anterior pelvis.BONES: No suspicious bony lesions. LOWER CHEST: No | | significant consolidation or effusion. IMPRESSION: 1. Heterogeneous somewhat complex | | appearing right adnexal abnormality measuring 4.9 x 4.5 cm (image 70 series 3), probably | | a hemorrhagic ovarian cyst. Further assessment recommended with pelvic ultrasound.2. | | Again seen is a 1.3 cm left adrenal nodule, difficult to accurately characterize. No | | significant change from the prior 01/22/2017 study. Follow-up adrenal protocol CT | | recommended at January 2018. RADIA Electronically signed by Star Boyd MD on Sep 07 | | 2016 1:06AM Referring Provider Line: [phone] ID: [id number] | |Kidneys: No solid appearing lesion. No hydronephrosis. | | | |Adrenals: There is a small nodule within the left adrenal measuring 13 mm (image 23 series 3). This is difficult to accurately characterize on this exam. | | | |Bowel: No obstruction. Average fecal residual. | | | |Appendix: Normal. | | | |Lymph Nodes: No pathologically enlarged nodes. | | | |Vasculature: Normal caliber aorta. | | | |Fluid: No significant free fluid. | | | |Abdominal Wall: No significant abnormality. | | | |Other: No significant abnormality. | | | |PELVIS: | |Uterus and ovaries: There is a heterogeneous appearing right adnexal abnormality measuring 4.5 x 4.9 cm (image 70 series 3). | | | |Bladder: Decompressed, precluding assessment. | | | |Lymph Nodes: No pathologically enlarged nodes. | | | |Fluid: No significant free fluid. | | | |Other: Peritoneal dialysis catheter is looped within the anterior pelvis. | |BONES: No suspicious bony lesions. | | | |LOWER CHEST: No significant consolidation or effusion. | | | |IMPRESSION: | | | |1. Heterogeneous somewhat complex appearing right adnexal abnormality measuring 4.9 x 4.5 c m (image 70 series 3), probably a hemorrhagic ovarian cyst. Further assessment recommended w ith pelvic ultrasound. | |2. Again seen is a 1.3 cm left adrenal nodule, difficult to accurately characterize. No sig nificant change from the prior 01/22/2017 study. Follow-up adrenal protocol CT recommended a t January 2018. | | | |RADIA | | | | Electronically signed by Star Boyd MD on Sep 07 2017 1:06AM Referring Provider Line: [phone] ID: [id number] | + + US Abdomen Limited (09/06/2017 11:19 PM PDT) + + | Specimen | + + | | + + + + + | Impressions | Performed At | + + + | Mildly distended gallbladder without evidence of cholelithiasis or | | | acute cholecystitis. No bile duct obstruction. RADIA | | | Electronically signed by Stepan Wiggins on Sep 06 2017 11:45PM | | | Referring Provider Line: [phone] ID: [id number] | | + + + + + + | Narrative | Performed At | + + + | EXAM: ABDOMEN ULTRASOUND LIMITED, RU EXAM DATE: 09/06/2017 | | | 11:20 PM. CLINICAL HISTORY: Right upper quadrant pain | | | COMPARISON: 01/22/2017 CT abdomen. TECHNIQUE: Real-time scanning | | | was performed with static images obtained. FINDINGS: Liver: | | | Normal in size and echotexture. cm. Main portal vein flow: | | | Hepatopetal. Gallbladder: Mildly distended. No stones, wall | | | thickening, or sonographic Matthews's sign. Biliary System: CBD | | | measures 4.6 mm. No intrahepatic or extrahepatic ductal dilatation. | | | Other: None. | | + + + + + | Procedure Note | + + | Endy, Rad Conversion - 06/24/2019 3:39 AM PDT EXAM:ABDOMEN ULTRASOUND LIMITED, RUQ | | EXAM DATE: 09/06/2017 11:20 PM. CLINICAL HISTORY: Right upper quadrant pain COMPARISON: | | 01/22/2017 CT abdomen. TECHNIQUE: Real-time scanning was performed with static images | | obtained. FINDINGS:Liver: Normal in size and echotexture. cm. Main portal vein flow: | | Hepatopetal. Gallbladder: Mildly distended. No stones, wall thickening, or sonographic | | Matthews's sign. Biliary System: CBD measures 4.6 mm. No intrahepatic or extrahepatic | | ductal dilatation. Other: None. IMPRESSION: Mildly distended gallbladder without | | evidence of cholelithiasis or acute cholecystitis. No bile duct obstruction. RADIA | | Electronically signed by Stepan Wiggins on Sep 06 2017 11:45PM Referring Provider | | Line: [phone] ID: [id number] | | | |FINDINGS: | |Liver: Normal in size and echotexture. cm. Main portal vein flow: Hepatopetal. | | | |Gallbladder: Mildly distended. No stones, wall thickening, or sonographic Matthews's sign. | | | |Biliary System: CBD measures 4.6 mm. No intrahepatic or extrahepatic ductal dilatation. | | | |Other: None. | | | |IMPRESSION: | |Mildly distended gallbladder without evidence of cholelithiasis or acute cholecystitis. No bile duct obstruction. | | | |RADIA | | | | Electronically signed by Stepan Wiggins on Sep 06 2017 11:45PM Referring Provider Line : [phone] ID: [id number] | + + Lactic Acid (09/06/2017 9:46 PM PDT) + + + + + + | Component | Value | Ref Range | Performed | Pathologist | | | | | At | Signature | + + + + + + | Lactate | 1.6Comment: Testing | 0.4 - 2.0 | EXTERNAL | | | | performed at [facility];888 | mmol/L | LAB | | | | [facility];[place], [place] | | | | | | [address] | | | | + + + + + + + + | Specimen | + + | | + + + +---------+ + + | Performing | Address | City/State/Zipcode | Phone Number | | Organization | | | | + +---------+ + + | EXTERNAL LAB | | | | + +---------+ + + External Lab: CBC (09/06/2017 9:46 PM PDT) + + + + + + | Component | Value | Ref Range | Performed | Pathologist | | | | | At | Signature | + + + + + + | WBC | 15.75 (H) | 3.80 - 11.00 | EXTERNAL | | | | | K/uL | LAB | | + + + + + + | Red Blood | 4.08 | 3.70 - 5.10 | EXTERNAL | | | Cells | | M/uL | LAB | | | Counted | | | | | + + + + + + | Hemoglobin | 12.0 | 11.3 - 15.5 | EXTERNAL | | | | | g/dL | LAB | | + + + + + + | Hematocrit, | 34.3 | 34.0 - 46.0 % | EXTERNAL | | | POC | | | LAB | | + + + + + + | MCV | 84.2 | 80.0 - 100.0 fl | EXTERNAL | | | | | | LAB | | + + + + + + | MCH | 29.5 | 27.0 - 34.0 pg | EXTERNAL | | | | | | LAB | | + + + + + + | MCHC | 35.0 | 32.0 - 35.5 | EXTERNAL | [...] + + + | % Segmented | 82.42 | % | EXTERNAL | | | | | | LAB | | | Neutrophils | | | | | + + + + + + | % | 10.82 | % | EXTERNAL | | | Lymphocytes | | | LAB | | + + + + + + | % Monocytes | 5.56 | % | EXTERNAL | | | | | | LAB | | + + + + + + | % | 0.48 | % | EXTERNAL | | | Eosinophils | | | LAB | | + + + + + + | % Basophils | 0.72 | % | EXTERNAL | | | | | | LAB | | + + + + + + | Absolute | 12.98 (H) | 1.90 - 7.40 | EXTERNAL | | | Segmented | | K/uL | LAB | | | Neutrophils | | | | | + + + + + + | Absolute | 1.70 | 1.00 - 3.90 | EXTERNAL | | | Lymphocytes | | K/uL | LAB | | + + + + + + | Absolute | 0.88 (H) | 0.00 - 0.80 | EXTERNAL | | | Monocytes | | K/uL | LAB | | + + + + + + | Absolute | 0.08 | 0.00 - 0.50 | EXTERNAL | | | Eosinophils | | K/uL | LAB | | + + + + + + | Absolute | 0.11 (H)Comment: Testing | 0.00 - 0.10 | EXTERNAL | | | Basophils | performed at [facility];888 | K/uL | LAB | | | | Maksim Agarwal;[place] | | | | | | [address] | | | | + + + + + + + + | Specimen | + + | Blood specimen | | (specimen) | + + + +---------+ + + | Performing | Address | City/State/Zipcode | Phone Number | | Organization | | | | + +---------+ + + | EXTERNAL LAB | | | | + +---------+ + + Lipase (09/06/2017 9:46 PM PDT) + + + + + + | Component | Value | Ref Range | Performed | Pathologist | | | | | At | Signature | + + + + + + | Lipase | 199Comment: Testing | 73 - 393 U/L | EXTERNAL | | | | performed at [facility];[address] | | LAB | | | | [address];[place], [place] | | | | | | [address] | | | | + + + [...] + +---------+ + + Comprehensive Metabolic Panel (09/06/2017 9:46 PM PDT) + + + + [...] 99 | 65 - 99 mg/dL | EXTERNAL | | | Fasting | | | LAB | | + + + + + + | BUN | 40 (H) | 8 - 25 mg/dL | EXTERNAL | | | | | | LAB | | + + + + + + | Creatinine | 14 (H) | 0.50 - 1.00 | EXTERNAL | | | | | mg/dL | LAB | | + + + + + + | BUN/Creatin | 3 | | EXTERNAL | | | ine Ratio | | | LAB | | + + + + + + | Calcium | 10.3 | 8.5 - 10.5 | EXTERNAL | | | | | mg/dL | LAB | | + + + + + + | Protein, | 7.5 | 6.3 - 8.2 g/dL | EXTERNAL | | | Total | | | LAB | | + + + + + + | Albumin | 2.7 (L) | 3.6 - 5.0 g/dL | EXTERNAL | | | | | | LAB | | + + + + + + | Globulin | 4.8 | 1.3 - 4.9 g/dL | EXTERNAL [...] + + + + | ALP, | 102 | 35 - 115 U/L | EXTERNAL [...] | | | | | | at [facility];[address] [place] [address] | | | | | | [facility];[place] [address] | | | | + + + [...] + | Diagnosis | + + | Intractable abdominal pain Abdominal pain, unspecified site | + + | Intractable vomiting with nausea, unspecified vomiting type | + + | Hemorrhagic ovarian cyst Other and unspecified ovarian cyst | + + | Leukocytosis, unspecified type | + + | End-stage renal disease on peritoneal dialysis (HCC) End stage renal disease | + + | Epigastric pain Abdominal pain, epigastric | + + | Hypokalemia Hypopotassemia | + + documented in this encounter
--- OUTSIDE RECORDS SUMMARY | ~2020-05-11 | XMS | Encounter Summary ---
Demographics + + + | Address | [address] | | | [place] [address] | + + + | Home Phone [...] [place], [place] | | | | | [address] | | + + + + + | Lydia Palm | ECON | [place], [place] | | | | | [address] | | + + + + + | melinda METZ" | ECON | [place], [place] | | | reba | | [address] | | + + + + + | Jose C Oconnor | ECON | [place] | | | | | [place] | | | | | [address] | | + + + + + Care Team Providers + +------+ + | Care Coupon Redemption Clerk Name | Role | Phone | [...] | daily thru | [address] | [place] [address] | | | | | February 23, | [place], [place] | Phone: | | | | | Peritonitis | [address] | [phone] | | | | | Procedures | Phone: | Fax: | | | | | [place] | [phone] | [phone] | | | | | [place], | Fax: | | | | | | [address] [place] | [phone] | | | | | | IV [...] + + | 02/17/ | Hospital | [facility] | Jeovanny Correa, | Peritonitis | | 2019 | Encounter | [facility] | Alonzo Jasso MD | associated with | | | | [address] | [address] | peritoneal dialysis, | | | | [place] | [place] [address] | initial encounter | | | | [address] | [phone] | (HCC) (Primary Dx) | | | | [phone] | | | +--------+ + + + [...] be diffe rent from the original. Vitals: 02/17/19 1731 02/17/19 1810 BP: 111/62 103/62 Pulse: 91 81 Resp: [...] signed by: Gifty Diaz RN 02/17/2019 18:12 ifty Diaz RN - 019 5:33 PM PDT [...]
--- OUTSIDE RECORDS SUMMARY | ~2020-05-11 | XMS | Encounter Summary ---
Demographics + + + | Address | [address] | | | [place] [address] | + + + | Home Phone [...] [place], [place] | | | | | [address] | | + + + + + | Lydia Palm | ECON | [place], [place] | | | | | [address] | | + + + + + | melinda METZ" | ECON | [place], [place] | | | [place] | | [address] | | + + + + + | Jose C Oconnor | ECON | [place] | | | | | [place] | | | | | [address] | | + + + + + Care Team Providers + +------+ + | Care Finance Intern Name | Role | Phone | + +------+ + | Unknown, Physician | PCP | | + +------+ + Reason for Visit + +--------+ + | Reason | Onset | Comments | | | Date | | + +--------+ + | Follow-up | 01/12/ | | | | 2019 | | + +--------+ + Encounter Details +--------+ + + + + | Date | Type | Department | Care Team | Description | +--------+ + + + + | 01/12/ | Telephone | [facility] | Samira Dixon, | Follow-up | | 2020 | | VASCULAR SURGERY | RN | | | | | [address] | | | | | | [place], [place] | | | | | | [address] | | | | | | [phone] | | | +--------+ + + + [...] Telephone Encounter - Samira Dixon RN - 01/13/2020 11:12 AM PSTCalled patient back. Sh e states she is doing well. Post-op instructions reinforced, pt verbalizes understanding wit h no questions or concerns at this time. Follow up appt made for 01/25/20 with Si Long, [employer]. elephone Encounter - Adenike Choi - 01/13/2020 9:48 AM PSTDiane, is returning call for Follow-up and would like a call back. Additional Call Details: Returning call, please call home number elephone Encounte r - Samira Dixon, MICHELLE - 01/13/2020 9:45 AM PSTCalled to check on patient post AVG creati on with Dr Ramos on 01/11/20 and to schedule follow up appt. No answer, left message.Electronica lly signed by Samira Dixon RN at 01/13/2020 9:45 AM PSTdocumented in this encounter Plan of Treatment Not on filedocumented as of this encounter Visit Diagnoses Not on filedocumented in this encounter
--- OUTSIDE RECORDS SUMMARY | ~2020-05-11 | XMS | Encounter Summary ---
Demographics + + + | Address | [address] | | | [place] [address] | + + + | Home Phone [...] [place], [place] | | | | | [address] | | + + + + + | Lydia Palm | ECON | [place], [place] | | | | | [address] | | + + + + + | melinda METZ" | ECON | [place], [place] | | | [place] | | [address] | | + + + + + | Jose C Oconnor | ECON | [place] | | | | | [place] | | | | | [address] | | + + + + + Care Team Providers + +------+ + | Care Medical Records Auditor Name | Role | Phone | + +------+ + | Unknown, Physician | PCP | | + +------+ + Encounter Details +--------+ + + + + | Date | Type | Department | Care Team | Description | +--------+ + + + + | 02/17/ | Telephone | [facility] | Frances Glass RN | | | 2019 | | [facility] | | | | | | [address] | | | | | | [place] | | | | | | [address] | | | | | | [phone] | | | +--------+ + + + [...]
--- OUTSIDE RECORDS SUMMARY | ~2020-05-11 | XMS | Encounter Summary ---
Demographics + + + | Address | [address] | | | [place] [address] | + + + | Home Phone [...] [place], [place] | | | | | [address] | | + + + + + | Lydia Palm | ECON | [place], [place] | | | | | [address] | | + + + + + | melinda METZ" | ECON | [place], [place] | | | [place]ba | | [address] | | + + + + + | Jose C Oconnor | ECON | [place] | | | | | [place] | | | | | [address] | | + + + + + Care Team Providers + +------+ + | Care Timber Sizer Name | Role | Phone | + [...] | Radiology | Diagnoses | Tres | [facility] | | | | | End-stage | Shad Raymundo MD | Intra Op [address] | | | | | renal | [address] | | | | | disease | [place] | [place], [place] | | | | | ([facility]) | [address] | [address] | | | | | Procedures | [place], [place] | Phone: | | | | | IR | [address] | [phone] | | | | | Replacement | Phone: | Fax: | | | | | Tunneled | [phone] | [phone] | | | | | Cath | Fax: | | | | | | | [phone] | | +--------+--------+ + + + + Reason for Visit Diagnostic/Screening (Routine) +--------+--------+ + + + + | Status | Reason | Specialty | Diagnoses / | Referred By | Referred To | | | | | Procedures | Contact | Contact | +--------+--------+ + + + + | Closed | | Radiology | Diagnoses | Tres | [facility] Ir | | | | | End-stage | Shad Raymundo MD | Intra Op [address] | | | | | renal | [address] | | | | | disease | [place] | [place], [place] | | | | | (HCC) | [place] | [address] | | | | | Procedures | [place], [place] | Phone: | | | | | IR | [address] | [phone] | | | | | Replacement | Phone: | Fax: | | | | | Tunneled | [phone] | [phone] | | | | | Cath | Fax: | | | | | | | [phone] | | +--------+--------+ + + + + Encounter Details +--------+ + + + + | Date | Type | Department | Care Team | Description | +--------+ + + + + | 11/05/ | Hospital | [facility] | Shad Joshua, | End-stage renal | | 2019 | Encounter | CENTER IR INTRA OP | [address] | disease (HCC) | | | | [address] | [place], | | | | | [place], [place] | [place] [address] | | | | | [address] | [phone] | | | | | [phone] | | | +--------+ + + + [...] concerns after business hours, please call the [facility] Department. Recovery After Procedural Sedation [...] You can't be awakened Date Last Reviewed: 08/27/201619995311-1276 [employer]. [address] [place] [address], [place] [address]. All righ ts reserved. This information is [...] as of this encounter Progress Notes Yesenia Rodriguez, MICHELLE - 11/05/2019 3:15 PM PSTOozing noted at site of tunneled dialysis anjana Hollowayy, aviation electronics technician at bedside to change dressing. Yesenia Rodriguez RN 11/05/19 1525 yriam r, Yesenia Khan RN - 11/05/2019 1:00 PM PSTDischarge instructions including how to care for worthy rgical site and when to call the doctor were reviewed with the patient and mother. All quest ions were answered. Oozing noted at surgical site; mechanical assembly technician came to bedside and dressin g was changed. Oozing improved. Patient to be discharged home via wheelchair with mother. Yesenia Rodriguez RN 11/05/19 3:49 PM do cumented in this encounter H&P Notes Shad Joshua MD - 11/05/2019 1:00 PM PSTFormatting of this note might be different fro m the original. Vascular & Interventional Radiology History and Physical Exam Patient Name: Ramona Oconnor Date of : 1980 Consulting Provider: Shad Joshua MD/PhD Reason for Referral and Chief Complaint: Low flows via hemodialysis catheter, request for exchange History of Present Illness: Ramona Oconnor is a 39 y.o. female ESRD on HD via R IJ tunneled HD catheter. I was asked to see Ramona for catheter exchange. Hospital Problem List: Patient Active Problem List Diagnosis Peritonitis associated [...] 30-39.9) Infected prosthetic vascular graft, initial encounter Review of Systems: Review of Systems All other systems reviewed and are negative. All other systems negative. Code Status: Prior Past Medical History: Past Medical History: Diagnosis Date Acid reflux [...] 10/25/15 showed normal sized kidneys. 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 GERD (gastroesophageal reflux disease) Hypercalcemia 09/07/2017 Hyperphosphatemia 10/28/2015 Hypertension Hypocalcemia 10/28/2015 Hypokalemia 06/04/2017 Itching 10/28/2015 Metabolic acidosis 10/28/2015 Obesity Other chronic pain due to peritoneal dialysis infection Peritonitis associated with peritoneal dialysis (HCC) 01/24/2017 Peritonitis due to infected peritoneal dialysis catheter (HCC) 12/08/2018 Range of motion deficit left arm Renal insufficiency Secondary hyperparathyroidism (HCC) Uremia 10/28/2015 Past Surgical History: Past Surgical History: Procedure Laterality Date ABDOMEN SURGERY 10/27/2016 PD cath ARTERIAL BYPASS SURGRY AV FISTULA REPAIR N/A 08/26/2019 Procedure: REVISION LEFT AXILLARY AVG; WILL NEED C-ARM, OCCLUSION BALLOONS, VIABAHN STENTS ; Surgeon: Qasim Pederson MD; Location: [facility] MAIN OR AV FISTULA REPAIR Left 09/03/2019 Procedure: Resection of left arm AV graft with wound vac placement; Surgeon: Lexi Posada; Location: [facility] MAIN OR CATHETER REMOVAL 02/04/2019 Procedure: DIALYSIS CATHETER - REMOVAL; Surgeon: Qasim Pederson MD; Location: [facility] MAIN OR ; Service: Vascular; Laterality: N/A; Infected PD catheter removal DEBRIDEMENT Left 07/08/2019 Procedure: LEFT AXILLA WOUND DEBRIDEMENT, WASHOUT AND POSSIBLE WOUND VAC PLACEMENT; Surge on: Qasim Pederson MD; Location: [facility] MAIN OR OTHER SURGICAL HISTORY Left 03/11/2019 AV FISTULA PLACEMENT - Procedure: AV FISTULA; Surgeon: Qasim Pederson MD; Location: [facility] OR; Service: Vascular; Laterality: Left; OTHER SURGICAL HISTORY HARDWARE PRESENT OTHER SURGICAL HISTORY Right 01/2019 chest wall OTHER SURGICAL HISTORY Left 05/06/2019 AV GRAFT CREATION - Procedure: AV GRAFT CREATION; Surgeon: Qasim Pederson MD; Location: [facility] MAIN OR; Service: Vascular; Laterality: Left; bovine carotid graft OTHER SURGICAL HISTORY Left 05/26/2019 WOUND VAC PLACEMENT/REPLACEMENT - Procedure: WOUND VAC - PLACEMENT - REPLACEMENT; Surgeon : Qasim Pederson MD; Location: [facility] MAIN OR; Service: Vascular; Laterality: Left; PERITONEAL CATHETER PLACEMENT/REMOVAL 10/28/2015 Procedure: LAPAROSCOPIC - PERITONEAL DIALYSIS CATH INSERTION; Surgeon: Mundo Ramos MD; Lo cation: [facility] MAIN OR; Service: Vascular; Laterality: N/A; UPPER GASTROINTESTINAL ENDOSCOPY 09/10/2017 Procedure: ESOPHAGOGASTRODUODENOSCOPY; Surgeon: Beena Peters MD; Location: [facility] ENDOSCOP Y; Service: Gastroenterology; Laterality: N/A; WISDOM TOOTH EXTRACTION Family History: Family History Problem Relation Age of Onset Cancer Maternal Grandmother breast ca Kidney disease Paternal Grandfather renal falure Other (see comment) Mother Other (see comments) - healthy Diabetes Father Breast cancer Maternal Grandmother Malig hypertherm Neg Hx Social History: Social History Socioeconomic History Marital status: Spouse [...] at home and is a former smoker. Medications and Allergies: Current Medications: ceFAZolin sodium chloride 0.9% 50 mL/hr at 11/05/19 1155 (Not in a hospital admission) @ENCMED@ Allergies: Allergies Allergen Reactions Adhesive & Tape Itching Labs: 3 Day Labs: Recent Labs Lab 11/05/19 1232 WBC 6.77 HGB 12.7 HCT 38.2 PLT 196 INR 1.0 Imaging/Procedures: Pertinent Studies and Results Imaging Data: No results found. Physical Examination: Vitals: 11/05/19 1346 BP: 115/70 Pulse: 61 Resp: 18 Temp: Physical Exam Constitutional: She is oriented to person, place, and time and well-developed, well-nourish ed, and in no distress. Cardiovascular: Normal rate. Pulmonary/Chest: Effort normal. Abdominal: Soft. Neurological: She is alert and oriented to person, place, and time. GCS score is 15. Skin: Skin is warm and dry. Psychiatric: Mood and affect normal. Plan for Sedation: IV Conscious Sedation with Fentanyl and Versed. Moderate Sedation Presedation Assessment completed. The patient was reassessed immediately prior to sedation with no significant clinical barnett es in the exam, including heart and lungs, since the completion of H&P ASA Classification: 3 Mallampati Classification: 2 Consent: Risks, alternatives, and benefits of the procedure were discussed with the patient. Questio ns were answered. Signed and verbal consent were given as witnessed by staff. Pre-Procedure Diagnosis: Poorly functioning dialysis catheter Procedure to be performed: Catheter exchange Assessment and Plan: 39F ESRD with poorly functioning central line. - CVC exchange today, check for fibrin sheath Shad Joshua MD/PhD Vascular and Interventional Radiology documented in this en counter Miscellaneous Notes Sedation Documentation - Phillip Garcia Technologist - 11/05/2019 1:50 PM PSTPost norris ges obtained edation Documentation - Phillip Garcia Technologist - 11/05/2019 1:38 PM PSTPer images obtain ed rief Op Note - Shad Joshua MD - 11/05/2019 1:00 PM PSTInterventional Radiology Post Procedure Note Patient Name: Ramona Oconnor Date of : 1980 Procedure(s): Right IJ tunneled central line exchange Pre OP Diagnosis: Poorly functioning dialysis catheter Post OP Diagnosis: Same Property Master: Shad Joshua MD/PhD Anesthesia Type: Fentanyl only Findings: Brown lumen of existing catheter with poor drawback. Contrast injection of both lumens did not demonstrate a fibrin sheath. Successful catheter exchange with the new elenita ter placed approximately 2 cm distal to the site of the first, to get beyond any unseen iglesias th. Good drawback and flush from both lumens. Small suture fragment penetrating through incision scar in left upper arm from fistula rese ction site, likely from deep suture used for ligation. Suture did not pull easily, was trim med at skin level while under mild tension, suture retracted below skin level after cutting. Patient advised to see vascular surgery clinic if suture becomes visible again Specimens: None EBL: <10 mL Complications: None PLAN: Okay to use for dialysis. A full report will follow in the imaging section. Shad Joshua MD/PhD Interventional Radiologist and Vascular Medicine Specialist documented in this en counter Plan of [...] by: | [facility] | | Bianka Joshua, Shad Sign Date/Time: 11/05/2019 5:21 PM | | [...] + + | Performing | Address | City/State/[facility] | Phone Number | | Organization | [...] | | | | | performed at [facility] | | | | | | [address];[place], [place] | | | | | | [address] | | | | + + + + + + + + | Specimen | + + | Blood | + + + + + + + | Performing | Address | City/State/Zipcode | Phone Number | | Organization | | | | + + + + + | [facility] | [address] | [place] [address] | [phone] | + + + + + HCG, Serum, Quant (11/05/2019 12:32 PM PST) + + + + + + | Component | Value | Ref Range | Performed | Pathologist | | | | | At | Signature | + + + + + + | hCG Quant, | <4Comment: APPROX | <4 mIU/mL | [facility] | | | Serum | GESTATIONAL AGE..APPROX [...] | | | | | 100 - 48803 - 4 WEEKS | | | | | | . . . . 500 - 611869 - | | | | | | 5 WEEKS . . . . 1000 - | | | | | | 597393 - 6 WEEKS . . . | | | | | | [address] - 6161026 - 8 | | | | | | WEEKS . . . [address] - | | | | | | [id number] - 3 MONTHS . . . | | | | | | [address] - 705011 Testing | | | | | | performed at [facility] | | | | | | [address];[place], [place] | | | | | | [address] | | | | + + + + + + + + | Specimen | + + | Blood | + + + + + + + | Performing | Address | City/State/Zipcode | Phone Number | | Organization | | | | + + + + + | [facility] | [address] | [place] [address] | [phone] | + + + + + CBC [...] 0.05Comment: Testing | 0.00 - 0.10 | [facility] | | | Absolute | performed at [facility];[address] | [address] | LABORATORY | | | | [address];[place] | | | | | | [address] | | | | + + + + + + + + | Specimen | + + | Blood | + + + + + + + | Performing | Address | City/State/Zipcode | Phone Number | | Organization | | | | + + + + + | [facility] | [address] | [place] [address] | [phone] | + + + + + documented [...] in dextrose (ANCEF, | New Bag | 11/05/ | 2 g | | | | [...] | | | | | PRN, Starting 11/05/19 at | | PM PST | | [...]
--- OUTSIDE RECORDS SUMMARY | ~2020-05-11 | XMS | Encounter Summary ---
Demographics + + + | Address | [address] | | | [place] [address] | + + + | Home Phone [...] [place], [place] | | | | | [address] | | + + + + + | Lydia Palm | ECON | [place], [place] | | | | | [address] | | + + + + + | melinda METZ" | ECON | [place], [place] | | | [place] | | [address] | | + + + + + | Jose C Oconnor | ECON | [place] | | | | | [place] | | | | | [address] | | + + + + + Care Team Providers + +------+ + | Care Production Operator Name | Role | Phone | [...] | | | | | | | [place] | | | | | | | [...] + + | 01/10/ | Surgery | [facility] | Mnudo Ramos MD | AV GRAFT CREATION | | 2019 | [facility] | [address] | | | | | OPER[address] RO[address] | [address], [place] | | | | | [place] | [address] | | | | | [place], [place] | [phone] | | | | | [address] | | | | | | [phone] | | | +--------+---------+ + + + [...] + + + | Blood Pressure | 102/59 | 01/11/2020 12:40 PM | | | | | PST | | + + + + + | Pulse | 75 | 01/11/2020 12:40 PM | | | | | PST | | + + + + + | Temperature | 36.6 C (97.8 F) | 01/11/2020 11:44 AM | | | | | PST | | + + + + + | Respiratory Rate | 15 | 01/11/2020 12:40 PM | | | | | PST | | + + + + + | Oxygen Saturation | 94% | 01/11/2020 12:40 PM | | | | | PST [...] might be different fr om the original. [facility] AV DIALYSIS SHUNT/FISTULA DISCHARGE INSTRUCTIONS Your physician [...] 24 hours, or as directed by your [facility] provider. Change your dressing if it gets [...] by your healthcare provider Date Last Reviewed: 10/10/201619992052-5128 [employer]. [address] [place] [address], [place] [address]. All righ ts reserved. This information is [...] chances for infection. Controlled body temperature. A chvrz-zbrb-ubsbtr temperature during or after surgery pre vents [...] water or with an alcoho l-based hand apparatus cleaner before and after caring for you. [...] doesn t go away Date Last Reviewed: 10/10/201619995346-[address] [employer] [place] [address], [place] [address]. All righ ts reserved. This information is [...] official disposal site. Contact the [facility] at [phone] or your [facility] to find a site. If you cannot return the medicine, flush it down the toilet. Do not use the medicine after the expiration date. [facility] AV DIALYSIS SHUNT/FISTULA DISCHARGE INSTRUCTIONS Your physician [...] information carefully each time. Talk to your territory sales manager regarding the use of this medicine in [...] this medicine? Tell your doctor or health animal caretaker supervisor if your pain does not go away, [...] should report to your doctor or health animal caretaker supervisor as soon as p ossible: allergic reactions like skin rash, itching or hives, swelling of the face, lips, or tong ue breathing problems chest pain confusion fast, irregular heartbeat feeling faint or lightheaded, falls trouble passing urine or change in the amount of urine Side effects that usually do not require medical attention (Report these to your doctor or health animal caretaker supervisor if they continue or are bothersome.): constipation dizziness headache nausea stomach pain tiredness vomiting This list may not describe all possible side effects. Call your doctor for medical advice a bout side effects. You may report side effects to FDA at 1-043-TFI-5565. Where should I keep my medicine? Keep [...] doctor, pharmacist, or health care provider. Copyright 2014 [employer] documented in this encounter Medications [...] per protocol. documented in this enco unter H&P Notes Mundo Ramos MD - 01/11/2020 9:36 AM [facility] Service: Vascular Surgery Pre-Operative History & Physical Interval Update There have been no significant clinical changes since the completion of the above H&P. Ernestina melgoza's physical assessment showed Normal appearance, alert and oriented x 3 and respiratory eff ort normal Mundo Ramos MD 01/11/2020 Mundo Siegel MD - 0 12/23/2019 4:30 PM PST Subjective Subjective Ms. [...] 10/25/15 showed normal sized kidneys. 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 MAIN OR AV FISTULA REPAIR N/A 08/26/2019 Procedure: REVISION LEFT AXILLARY AVG; WILL NEED C-ARM, OCCLUSION BALLOONS, VIABAHN STENTS ; Surgeon: Qasim Pederson MD; Location: [facility] MAIN OR AV FISTULA REPAIR Left 09/03/2019 Procedure: Resection of left arm AV graft with wound vac placement; Surgeon: Lexi Posada; Location: [facility] MAIN OR CATHETER REMOVAL 02/04/2019 Procedure: DIALYSIS CATHETER - REMOVAL; Surgeon: Qasim Pederson MD; Location: [facility] MAIN OR ; Service: Vascular; Laterality: N/A; Infected PD catheter removal DEBRIDEMENT Left 07/08/2019 Procedure: LEFT AXILLA WOUND DEBRIDEMENT, WASHOUT AND POSSIBLE WOUND VAC PLACEMENT; Surge on: Qasim Pederson MD; Location: [facility] MAIN OR OTHER SURGICAL HISTORY Left 03/11/2019 AV FISTULA PLACEMENT - Procedure: AV FISTULA; Surgeon: Qasim Pederson MD; Location: [facility] OR; Service: Vascular; Laterality: Left; OTHER SURGICAL HISTORY HARDWARE PRESENT OTHER SURGICAL HISTORY Right 01/2019 chest wall OTHER SURGICAL HISTORY Left 05/06/2019 AV GRAFT CREATION - Procedure: AV GRAFT CREATION; Surgeon: Qasim Pederson MD; Location: [facility] MAIN OR; Service: Vascular; Laterality: Left; bovine carotid graft OTHER SURGICAL HISTORY Left 05/26/2019 WOUND VAC PLACEMENT/REPLACEMENT - Procedure: WOUND VAC - PLACEMENT - REPLACEMENT; Surgeon : Qasim Pederson MD; Location: [facility] MAIN OR; Service: Vascular; Laterality: Left; PERITONEAL CATHETER PLACEMENT/REMOVAL 10/28/2015 Procedure: LAPAROSCOPIC - PERITONEAL DIALYSIS CATH INSERTION; Surgeon: Munod Ramos MD; Lo cation: [facility] [...] cancer Maternal Grandmother Malig hypertherm Neg Hx Current Outpatient Medications on [...] CV: No peripheral edema, rate regular SKIN: [place], warm, dry without rash/lesion MS: ROM not [...] Signed by: Juan Mishra and Alex Dai, Ishmaelibe 12/23/19, 4:15 PM Mundo Ramos MD documented in this enc ounter Miscellaneous Notes Op Note - Mundo Ramos MD - 01/11/2020 11:26 AM [facility] Service: Vascular Surgery Operative Note Pre-operative Diagnosis: ESRD and need for fci dialysis access Post-operative Diagnosis: same Procedure(s): Right brachial artery to axillary vein AV graft creation using 5 mm bovine c arotid graft Surgeon: Mundo Ramos MD Lap Machine Tender(s): HINA Leon (PA was required to help with positioning, prepping and scralett ping, exposure of vessels, vascular anastomosis, and closure). Anesthesia: General LMA Estimated Blood Loss: less than 100 ml Other: IV Fluids: 200 ml Indications: See pre-operative history and physical Findings: Right arm brachial artery was very small. Axillary vein of good size. After fi stula creation, good audible bruit in AV graft. Good radial signals at end of case. Complications: None apparent Description of Procedure: Patient was properly identified and brought to the operating hilario m where the patient was placed supine on the operating table and patient underwent General L MA. Patient's right arm was then prepped and draped in the usual sterile fashion. Local anes thetic was then given to the antecubital fossa and a longitudinal incision was then made. Th e brachial artery was also identified and dissected and encircled with vessel loops. Next, a longitudinal incision was then made in the right axilla. This was deepened with electroca utery and the axillary vein was identified and dissected. The axillary vein was then encirc led with vessel loops. Next, a tunnel was made from the antecubital fossa to the axilla usi ng a Renate-Wick Tunneler. Once the tunnel was made, a 5 mm bovine carotid graft was tunnele d from the axilla to the antecubital fossa. The patient was then given 5000 units of IV hep lolis. After 3 minutes an end-to-side anastomosis was created with the spatulated graft onto the brachial artery using 6-0 Prolene sutures in a running fashion. After completion of the anastomosis, there was pulsatile flow noted through the graft. Next, a end to side anastom osis was created with the spatulated graft onto the axillary vein using 5-0 prolene sutures. Prior to completion of the anastomosis, the graft was forward flushed and the vein was all owed to back bleed. After completing the anastomosis, there was a good audible bruit in the AV graft. The patient had a strong signal of the radial artery at the end of the case. The wound was then irrigated and hemostasis was then assured. The deep dermal tissue was then c losed with 3-0 Vicryl and the skin was then closed with 4-0 Monocryl in a subcuticular fashi on for both the antecubital fossa and axilla. Dermabond was then placed on the skin. At the end of the case, sponge, needle, and instrument counts were correct x2. There were no appare nt complications. Condition: stable Mundo Ramos MD 01/11/2020 11:26 AM documented in this enc ounter Plan of Treatment Not on filedocumented as of this encounter Procedures + +--------+ + + + | Procedure Name | Priori | Date/Time | Associated Diagnosis | Comments | | | ty | | | | + +--------+ + + + | AV GRAFT CREATION | | 01/11/2020 | ESRD on dialysis | | | | | 10:00 AM | (HCC) | | | | | [...] [facility] | | | | performed at [facility] | | LABORATORY | | | | [facility];[place], [place] | | | | | | [address] | | | | + + + + + + + + | Specimen | + + | Blood | + + + + + + + | Performing | Address | City/State/Zipcode | Phone Number | | Organization | | | | + + + + + | [facility] | [address] | [place] [address] | [phone] | + + + + + Basic [...] 6 (L)Comment: GFR <60: | >60 | [facility] [...] | | | | | | MDRD IDWY traceable | | | | | | equation.Testing | | | | | | performed at [facility];[address] | | | | | [facility];[place], [place] | | | | | | [address] | | | | + + + + + + + + | Specimen | + + | Blood | + + + + + + + | Performing | Address | City/State/Zipcode | Phone Number | | Organization | | | | + + + + + | [facility] | [address] | [place] [address] | [phone] | + + + + + documented in this encounter Visit Diagnoses + + | Diagnosis | + + | ESRD on dialysis ([facility]) End stage renal disease | + + documented in this encounter Admitting Diagnoses + + | Diagnosis | + + | ESRD on dialysis ([facility]) End stage renal disease | + + [...] | | | | | | | 3/3/20 at 1142, For 4 doses, | | | | | | | First dose must be lowest dose. | | | | | | | Use Pasero Sedation Scale. | | | | | | | [Opioid tolerant = One week or | | | | | | | longer, ajlqyy-uny-nmiad use of | | | | | [...] | | | | | | | cfjvgr-wge-qhzfe use of at least | | | [...]
--- OUTSIDE RECORDS SUMMARY | ~2020-05-11 | XMS | Encounter Summary ---
Demographics + + + | Address | [address] | | | [place] [address] | + + + | Home Phone | | + + + | Preferred Language | Unknown | + + + | Marital Status | | + + + | Confucianist Affiliation | Unknown | + + + | Race | Unknown | + + + | Ethnic Group | Unknown | + + + Author + + + | Author | [facility] | | | and [place] | + + + | Organization | [facility] | | | and [place] | + + + | Address | Unknown | + + + | Phone | Unavailable | + + + Support + + + + + | Name | Relationship | Address | Phone | + + + + + | Lyubov Smalls | ECON | [place], [place] | | | | | [address] | | + + + + + | Lydia Palm | ECON | [place], [place] | | | | | [address] | | + + + + + | melinda METZ" | ECON | [place], [place] | | | [place] | | [address] | | + + + + + | Jose C Oconnor | ECON | [place] | | | | | [place] | | | | | [address] | | + + + + + Care Team Providers + +------+ + | Care Correction Officer Head Name | Role | Phone | + [...] PRE | MD Kiran [address] | | | | | KIDNEY TRANSPLANT | JOSE [address] [address] | | | | | [address] [place] | [place] [address] | | | | | [address] [place] [address] | [phone] | | | | | [address] | | | | | | [phone] | | | +--------+ + + + [...]
--- OUTSIDE RECORDS SUMMARY | ~2020-05-11 | XMS | Encounter Summary ---
Demographics + + + | Address | [address] | | | [place] [address] | + + + | Home Phone [...] [place], [place] | | | | | [address] | | + + + + + | Lydia Palm | ECON | [place], [place] | | | | | [address] | | + + + + + | melinda METZ" | ECON | [place], [place] | | | [place] | | [address] | | + + + + + | Jose C Oconnor | ECON | [place] | | | | | [place] | | | | | [address] | | + + + + + Care Team Providers + +------+ + | Care Mobile Home Mechanic Name | Role | Phone | + +------+ + | No, Physician | PCP | Unavailable | + +------+ + Reason for Visit +--------+--------+ + | Reason | Onset | Comments | | | Date | | +--------+--------+ + | Other | 09/13/ | Would Vac Questions | | | 2019 | | +--------+--------+ + Encounter Details +--------+ + + + + | Date | Type | Department | Care Team | Description | +--------+ + + + + | 09/13/ | Telephone | [facility] | Qasim Pederson MD | Other (Would Vac | | 2019 | | VASCULAR SURGERY | [address] | Questions) | | | | [address] [place] | [place], [place] | | | | | [place], [place] | [address] | | | | | [address] | | | | | | [phone] | | | +--------+ + + + [...] Telephone Encounter - Nidhi Whitaker RN - 09/13/2019 12:56 PM PSTReturn call made to dayami Rubio measurements faxed over to [phone] as requested. elephone Encounter - Mary Ann Cantrell - 02/2019 12:10 PM PSTMichelle- [facility], is calling regarding Other (Would Vac Questions) and would like a call back. Additional Call Details: Caller is needing to speak with someone regarding the Wound Vac b eing placed on hold on 08/26/19. Is needing the measurements so Wound Vac can be continued. Please call her back at [phone]. If this is a symptom based call, was patient offered triage? Not Applicable If this is a symptom based call and you were unable to immediately transfer the call to a garfield sadler casting and curing operator was caller made aware that if at any time she feels it is an emergency they sh ould call 911 or go to the nearest emergency room? not applicable documented in this encounter Plan of Treatment Not on filedocumented as of this encounter Visit Diagnoses Not on filedocumented in this encounter
--- OUTSIDE RECORDS SUMMARY | ~2020-05-11 | XMS | Encounter Summary ---
Demographics + + + | Address | [address] | | | [place] [address] | + + + | Home Phone | | + + + | Preferred Language | Unknown | + + + | Marital Status | | + + + | Methodist Affiliation | Unknown | + + + | Race | Unknown | + + + | Ethnic Group | Unknown | + + + Author + + + | Author | [facility] | | | and [place] | + + + | Organization | [facility] | | | and [place] | + + + | Address | Unknown | + + + | Phone | Unavailable | + + + Support + + + + + | Name | Relationship | Address | Phone | + + + + + | Lyubov Smalls | ECON | [place], [place] | | | | | [address] | | + + + + + | Lydia Palm | ECON | [place], [place] | | | | | [address] | | + + + + + | melinda METZ" | ECON | [place], [place] | | | [place] | | [address] | | + + + + + | Jose C Oconnor | ECON | [place] | | | | | [place] | | | | | [address] | | + + + + + Care Team Providers + +------+ + | Care Cardiovascular Technologist Name | Role | Phone | + [...] + + | 01/10/ | Hospital | [facility] | Mundo Ramos MD | | | 2020 | Encounter | [facility] | [address] | | | | | [address] | [place], [place] | | | | | [address] | [address] | | | | | [place], [place] | [phone] | | | | | [address] | | | | | | [phone] | | | +--------+ + + + [...] might be different fr om the original. [facility] AV DIALYSIS SHUNT/FISTULA DISCHARGE INSTRUCTIONS Your [...] 24 hours, or as directed by your [facility] provider. Change your dressing if it [...] by your healthcare provider Date Last Reviewed: 10/10/201619994477-7994 [employer] [address] [place] [address], [place] [address]. All righ ts reserved. This information is [...] chances for infection. Controlled body temperature. A fuoec-rzuz-ydfumg temperature during or after surgery pre vents [...] water or with an alcoho l-based hand school cleaner before and after caring for you. [...] doesn t go away Date Last Reviewed: 10/10/201619997011-1221 [employer] [address] [place] [address]. All righ ts reserved. This information is [...] official disposal site. Contact the [facility] at [phone] [facility] government to find a site. If you cannot return the medicine, flush it down the toilet. Do not use the medicine after the expiration date. [facility] AV DIALYSIS SHUNT/FISTULA DISCHARGE INSTRUCTIONS Your [...] information carefully each time. Talk to your beater room helper regarding the use of this medicine in [...] this medicine? Tell your doctor or health outdoor emergency care technician if your pain does not go away, [...] should report to your doctor or health outdoor emergency care technician as soon as p ossible: allergic reactions like skin rash, itching or hives, swelling of the face, lips, or tong ue breathing problems chest pain confusion fast, irregular heartbeat feeling faint or lightheaded, falls trouble passing urine or change in the amount of urine Side effects that usually do not require medical attention (Report these to your doctor or health outdoor emergency care technician if they continue or are bothersome.): constipation dizziness headache nausea stomach pain tiredness vomiting This list may not describe all possible side effects. Call your doctor for medical advice a bout side effects. You may report side effects to FDA at 6-233-SQI-6635. Where should I keep my medicine? Keep [...] Mundo Ramos MD - 01/11/2020 9:36 AM [facility] Service: Vascular Surgery Pre-Operative History & Physical Interval Update There have been no significant clinical changes since the completion of the above H&P. Toda y's physical assessment showed Normal appearance, alert and [...] 10/25/15 showed normal sized kidneys. 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 GERD (gastroesophageal reflux disease) Hypercalcemia 09/07/2017 Hyperphosphatemia [...] GRAFT CREATION; Surgeon: Qasim Pederson MD; Location: [facility] MAIN OR AV FISTULA REPAIR N/A 08/26/2019 Procedure: REVISION LEFT AXILLARY AVG; WILL NEED C-ARM, OCCLUSION BALLOONS, VIABAHN STENTS ; Surgeon: Qasim Pederson MD; Location: [facility] MAIN OR AV FISTULA REPAIR Left 09/03/2019 Procedure: Resection of left arm AV graft with wound vac placement; Surgeon: Lexi Posada; Location: [facility] MAIN OR CATHETER REMOVAL 02/04/2019 Procedure: DIALYSIS CATHETER - REMOVAL; Surgeon: Qasim Pederson MD; Location: [facility] MAIN OR ; Service: Vascular; Laterality: N/A; Infected PD catheter removal DEBRIDEMENT Left 07/08/2019 Procedure: LEFT AXILLA WOUND DEBRIDEMENT, WASHOUT AND POSSIBLE WOUND VAC PLACEMENT; Surge on: Qasim Pederson MD; Location: [facility] MAIN OR OTHER SURGICAL HISTORY Left 03/11/2019 AV FISTULA PLACEMENT - Procedure: AV FISTULA; Surgeon: Qasim Pederson MD; Location: [facility]; Service: Vascular; Laterality: Left; OTHER SURGICAL HISTORY HARDWARE PRESENT OTHER SURGICAL HISTORY Right 01/2019 chest wall OTHER SURGICAL HISTORY Left 05/06/2019 AV GRAFT CREATION - Procedure: AV GRAFT CREATION; Surgeon: Qasim Pederson MD; Location: [facility] MAIN OR; Service: Vascular; Laterality: Left; bovine carotid graft OTHER SURGICAL HISTORY Left 05/26/2019 WOUND VAC PLACEMENT/REPLACEMENT - Procedure: WOUND VAC - PLACEMENT - REPLACEMENT; Surgeon : Qasim Pederson MD; Location: [facility] MAIN OR; Service: Vascular; Laterality: Left; PERITONEAL CATHETER PLACEMENT/REMOVAL 10/28/2015 Procedure: LAPAROSCOPIC - PERITONEAL DIALYSIS CATH INSERTION; Surgeon: Mundo Ramos MD; Lo cation: [facility]; Service: Vascular; Laterality: N/A; UPPER GASTROINTESTINAL ENDOSCOPY 09/10/2017 Procedure: ESOPHAGOGASTRODUODENOSCOPY; Surgeon: Beena Peters MD; Location: [facility]; Service: Gastroenterology; Laterality: N/A; [...] CV: No peripheral edema, rate regular SKIN: [place], warm, dry without rash/lesion MS: ROM not [...] Mundo Ramos MD - 01/11/2020 11:26 AM [facility] Service: Vascular Surgery Operative Note Pre-operative Diagnosis: ESRD and need for assisted dialysis access Post-operative Diagnosis: same Procedure(s): Right brachial artery to axillary vein AV graft creation using 5 mm bovine c arotid graft Surgeon: Mundo Ramos MD Manager Business Continuity(s): HINA Leon (PA was required to help with positioning, prepping and scarlett ping, exposure of vessels, vascular anastomosis, and [...] | | | 10:00 AM | ([facility]) | | | | | PST | [...] | | | | performed at [facility] | | LABORATORY | | | | Maksim Agar[address];[place], [place] | | | | | | [address] | | | | + + + + + + + + | Specimen | + + | Blood | + + + + + + + | Performing | Address | City/State/Zipcode | Phone Number | | Organization | | | | + + + + + | [facility] | [address] | [place] [address] | [phone] | + + + + + Basic [...] 6 (L)Comment: GFR <60: | >60 | [facility] | | | GFR | CHRONIC [...] | | | | performed at [facility];[address] | | | [address] [facility];[place], [place] | | | | | | [address] | | | | + + + + + + + + | Specimen | + + | Blood | + + + + + + + | Performing | Address | City/State/Zipcode | Phone Number | | Organization | | | | + + + + + | [facility] | [address] | [place] [address] | [phone] | + + + + + documented in this encounter Visit Diagnoses + + | Diagnosis | + + | ESRD on dialysis ([facility]) - Primary End stage renal disease | + + documented in this encounter Admitting Diagnoses + + | Diagnosis | + + | ESRD on dialysis ([facility]) End stage renal disease | + + [...] | | | | | | longer, zyegtz-khr-fdqbh use of | | | | | [...] | | | HOURS PRN, Pain, Starting Tu | | | | | | | [...] | | | | | | | nyfbvq-tnl-agrbx use of at least | | | [...]
--- OUTSIDE RECORDS SUMMARY | ~2020-05-11 | XMS | Encounter Summary ---
Demographics + + + | Address | [address] | | | [place] [address] | + + + | Home Phone [...] [place], [place] | | | | | [address] | | + + + + + | Lydia Palm | ECON | [place], [place] | | | | | [address] | | + + + + + | melinda METZ" | ECON | [place], [place] | | | [place] | | [address] | | + + + + + | Jose C Oconnor | ECON | [place] | | | | | [place] | | | | | [address] | | + + + + + Care Team Providers + +------+ + | Care Elementary Education Teacher Name | Role | Phone | + +------+ + | No, Physician | PCP | Unavailable | + +------+ + Reason for Visit +--------+--------+ + | Reason | Onset | Comments | | | Date | | +--------+--------+ + | Pre-Op | 11/04/ | confirmed arrival for 11/05 procedure | | | 2019 | | +--------+--------+ + Encounter Details +--------+ + + + + | Date | Type | Department | Care Team | Description | +--------+ + + + + | 11/04/ | Telephone | [facility] | Shad Joshua, | Pre-Op (confirmed | | 2019 | | CENTER CV INTRA OP | MD [address] | arrival for 11/05 | | | | [address] | [place], | procedure) | | | | [place], [place] | [place] [address] | | | | | [address] | [phone] | | | | | [phone] | | | +--------+ + + + [...] this encounter Miscellaneous Notes Telephone Encounter - Luli Issa CNA - 11/04/2019 3:06 PM PSTConfirmed arrival for procedure documente d in this encounter Plan of Treatment Not on filedocumented as of this encounter Visit Diagnoses Not on filedocumented in this encounter
--- OUTSIDE RECORDS SUMMARY | ~2020-05-11 | XMS | Encounter Summary ---
Demographics + + + | Address | [address] | | | [place] [address] | + + + | Home Phone [...] [place], [place] | | | | | [address] | | + + + + + | Lydia Palm | ECON | [place], [place] | | | | | [address] | | + + + + + | melinda METZ" | ECON | [place], [place] | | | reba | | [address] | | + + + + + | Jose C Oconnor | ECON | [place] | | | | | [place] | | | | | [address] | | + + + + + Care Team Providers + +------+ + | Care Merchandise Adjustment Clerk Name | Role | Phone | + +------+ + | Juan F Whitley DO | PCP | | + +------+ + Encounter Details +--------+ + + + + | Date | Type | Department | Care Team | Description | +--------+ + + + + | 06/07/ | Hospital | [facility] | Rafiq Flood MD | End-stage renal | | 2018 - | Encounter | [facility] | [address] | disease on | | | | CARE [address]LO[address] | [place] [address] | peritoneal dialysis | | 06/09/ | | [address] | [phone] | ([facility]) | | 2018 | | [place], [place] | | | | | | [address] | | | | | | [phone] | | | +--------+ + + + [...] Service: Hospitalist Author Type: Physician Filed: 06/09/18 1115 Date of Service: 06/09/18 1052 Status: Signed Drafter Engineering: Roque Wyatt DO (Physician) [facility] Service: Hospitalist Discharge Summary Date of [...] f/u with her PCP and/or dialysis case reviewer in [facility]. All of this was discussed with [...] Code [place] [address] [place] [address] Medication List CHANGE how you [...] Refills: 0 Commonly known as: NORVASC ergocalciferol 79019 units capsule Refills: 0 Commonly known as: [...] Progress Note by Marixa Juarez RN at 06/09/18 173 Author: Marixa Juarez RN Service: (none) Author Type: Registered Nurse Filed: 06/09/181734 Date of Service: 06/09/181733 Status: Signed Drafter Engineering: Marixa Juarez RN (Registered Nurse) All discharge instructions and prescription information reviewed with pt and pt's mother. Pt states understanding and denies further questions. Pt states her ride will be here aroun d 1830. Marixa Juarez RN Cathie Henson MD - 06/09/2018 11:05 AM PDTFormatting of this note might be differen t from the original. Progress Notes by Cathie Marroquin MD at 06/09/18 1105 Author: Cathie Marroquin MD Service: Infectious Disease Author Type: Physici an Filed: 06/09/18 1116 Date of Service: 06/09/181104 Status: Signed Drafter Engineering: Cathie Marroquin MD (Physician) [facility] Service: Infectious Diseases Progress Note Hospital [...] not have adequate fluid to aspirate at [facility] where the initial diagnosis of SBP was entertained. While at [facility], patient has been afebrile with appropriate [...] Pharmacy Note by Torrie Whelan RPH at 06/09/181027 Author: Torrie Whealn RPH Service: Pharmacy Author Type: Pharmacist Filed: 06/09/181027 Date of Service: 06/09/181027 Status: Signed Drafter Engineering: Torrie Whelan RPH (Pharmacist) Vancomycin Monitoring: Random level this AM returned elevated @31.5 Will not receive a dose today Will order another random with AM labs for tomorrow Pharmacy to continue to monitor and dose as appropriate Torrie Whelan-PharmD onver patric Transaction, Provider Unknown - 06/09/2018 5:34 AM PDT Progress Notes by Drew Renae RPH at 06/09/18533 Author: Drew Renae RPH Service: Pharmacy Author Type: Pharmacist Filed: 06/09/1834 Date of Service: 06/09/18533 Status: Signed Drafter Engineering: Drew Renae RPH (Pharmacist) Pharmacy vancomycin notes level 06/09 0431 31.52 no dose today per protocol and pharmacy will follow rdc 0533 onver patric Transaction, Provider Unknown - 06/09/2018 2:29 AM PDT Nurse Progress Note by Katherine Ramos RN at 06/09/18228 Author: Katherine Ramos RN Service: (none) Author Type: Registered Nurse Filed: 06/09/18228 Date of Service: 06/09/18228 Status: Signed Drafter Engineering: Katherine Ramos RN (Registered Nurse) Patient with few bouts of nausea and vomiting this shift. Patient mostly dry heaving with l ittle output. Not tolerating anything orally at this time. k-pad provided for abdominal pain . Patient still on PD at this time, until 329. No other acute changes at this time. Katherine Ramos RN Arelis Mari i, MD - 06/08/2018 10:45 PM PDTFormatting of this note might be different from the or iginal. Progress Notes by Arelis Mlaoney MD at 06/08/182244 Author: Arelis Maloney MD Service: Hospitalist Author Type: Physician Filed: 06/08/182250 Date of Service: 06/08/182244 Status: Signed Drafter Engineering: Arelis Maloney MD (Physician) [facility] Service: Hospitalist Progress Note Hospital Day: [...] intact. 2+ DTRs DATA Recent Labs Lab 06/08/1843906/05/1856 WBC 16.57* 16.42* HGB 11.3 12.8 HCT 33.3* 39.0 PLT 311 400 NEUTOPHILPCT 82.59 83.54 MONOPCT 4.68 4.16 Recent Labs Lab 06/08/1843906/05/1856 NA 138 138 K 3.4* 4.4 CL 100 96* CO2 27 28 BUN 40* 33* CREATININE 15.3* 15* PROT -- 7.9 BILITOT -- 0.5 ALT -- 21 AST -- 32 Phosphorus: Lab Results Component Value Date PHOS 3.7 06/08/2018 Invalid input(s): LABALBU Recent Labs Lab 06/08/18439 MG 2.7* No results for input(s): AMYLASE in the last 168 hours. No results for input(s): PHART, PO2ART, MDS5JKZ, R3RNFARS, BEART in the last 168 hours. Recent Labs Lab 06/05/1856 APTT 27 INR 0.9 No results for input(s): TSH, T3FREE, FREET4 in the last 168 hours. Recent Labs Lab 06/05/1856 CKTOTAL 126 TROPONINI <0.020 CKMBINDEX UNABLE TO [...] 05 2018 1 :44AM Referring Provider Line: [phone] ID: [id number] Xr Chest Pa And Lateral Result Date: 06/05/2018 1. No acute cardiopulmonary process noted. Electronically signed by MD madelyn Davis n 06/05/2018 7:12 AM Us Endovaginal Result [...] Jun 05 2018 4:27AM Referring Provider Line: [phone] ID: [id number] PROBLEM LIST Principal Problem: Sepsis [...] Full Code DVT PPx: heparin SQ Arelis Malnoey MD 06/08/2018 onversion Transactio n, Provider Unknown - 06/08/2018 6:52 PM PDT Nurse Progress Note by Daisha Atwood RN at 06/08/181851 Author: Daisha Atwood RN Service: (none) Author Type: Registered Nurse Filed: 06/08/181855 Date of Service: 06/08/181851 Status: Signed Drafter Engineering: Daisha Atwood RN (Registered Nurse) A/Ox4, pt [...] Management by Saeid Mack RN at 06/08/18 9841 Author: Saeid Mack RN Service: (none) Author Type: Registered Nurse Filed: 06/08/18 6072 Date of Service: 06/08/18 175 Status: Signed Drafter Engineering: Saeid Mack RN (Registered Nurse) 06/08/18 9006 Discharge Planning Evaluation Admitting Diagnosis sepsis Readmission No Living Arrangements Other (Comment) Support Systems Spouse/significant other;Family members Type of Residence Private residence Independent with ADL's Yes Independent with Mobility Yes Mental Status Oriented Resources Financial concerns No Transportation issues No Patient/Family concerns No Prescription Plan Yes Name of Pharmacy [facility] Previous home health equipment No Vascular access device (PD access) Anticipated Disposition Facility Type Home Met with Ramona and discussed discharge planning, Pt is a 38 y.o., female who is independent and lives with her spouse. She does peritoneal dialysis at home and has support from the [facility] in [place]. Patient's PCP is:Juan F Whitley Patient's insurance:[employer]/ Medicare part A Coverage concerns: none Medication coverage/concerns: yes/no Community resources utilized / needed:Monique from [facility] [phone] can arrange for PICC care if needed. Assistance in transportation: spouse Identification of any specific education / training: none Barriers to Discharge / Alternative housing needed: none Anticipated DCP: Home with spouse but may need home IV anti biotics Saeid Mack onver patric Transaction, Provider Unknown - 06/08/2018 1:04 PM PDT Pharmacy Note by Naheed Lala RPH at 06/08/18 0830 Author: Naheed Lala RPH Service: Pharmacy Author Type: Pharmacist Filed: 06/08/18 1308 Date of Service: 06/08/18 6901 Status: Signed Drafter Engineering: Naheed Lala RPH (Pharmacist) ESRD on peritoneal dialysis. Will decrease Metoclopramide dose by 50% Changed from 10 mg q6h to 5 mg q6h onver patric Transaction, Provider Unknown - 06/08/2018 12:37 PM PDT Pharmacy Note by Naheed Lala RPH at 06/08/18 1237 Author: Naheed Lala RPH Service: Pharmacy Author Type: Pharmacist Filed: 06/08/18 1240 Date of Service: 06/08/181236 Status: Addendum Drafter Engineering: Naheed Lala RPH (Pharmacist) Related Notes: Original Note by Naheed Lala RPH (Pharmacist) filed at 06/08/181236 Vancomycin day 2: Note that this patient [...] Progress Note by Katherine Ramos RN at 06/08/1849 Author: Katherine Ramos RN Service: (none) Author Type: Registered Nurse Filed: 06/08/18 0653 Date of Service: 06/08/1849 Status: Signed Drafter Engineering: Katherine Ramos RN (Registered Nurse) Patient currently running peritoneal dialysis until 1030. Patient BP drops into the 90's wi th pain medication. Held medication when BP too low, and educated pt. Zofran, phenergan, and ativan given as needed. Katherine Ramos RN onver patric Transaction, Provider Unknown - 06/08/2018 5:47 AM PDT Progress Notes by Drew Renae RPH at 06/08/18546 Author: Drew Renae RPH Service: Pharmacy Author Type: Pharmacist Filed: 06/08/18546 Date of Service: 06/08/18546 Status: Signed Drafter Engineering: Drew Renae RPH (Pharmacist) Pharmacy vancomycin notes [...] 06/08/1819 Date of Service: 06/08/1819 Status: Signed Drafter Engineering: Drew Renae RPH (Pharmacist) Note ccl 4.8ml/min ESRD meds reviewed pharmacy will follow rdc 0020 onver patric Transaction, Provider Unknown - 06/07/2018 8:54 PM PDT Nurse Progress Note by Katherine Ramos RN at 06/07/182053 Author: Katherine Ramos RN Service: (none) Author Type: Registered Nurse Filed: 06/07/182058 Date of Service: 06/07/182053 Status: Signed Drafter Engineering: Katherine Ramos RN (Registered Nurse) Received report from [facility] RN. Patient just leaving facility at this time. Katherine Ramos RN docume nted in this encounter H&P Notes Rafiq Flood MD - 06/07/2018 11:00 PM PDT H&P by Rafiq Flood MD at 06/07/182299 Author: Rafiq Flood MD Service: (none) Author Type: Physician Filed: 06/07/18 4808 Date of Service: 06/07/182299 Status: Signed Drafter Engineering: Rafiq Flood MD (Physician) [facility] Service: Hospitalist Admission History & Physical Pt: Ramona Oconnor AGE/SEX: 38 y.o. female ROOM: [address] [place] [address] PCP: JUAN F WHITLEY : 1980 TODAY'S DATE: 06/07/2018 Date of Admission: 06/07/2018 Chief Complaint: Abd pain History of Present Illness: 38-year-old female with past medical history of end-stage renal disease on peritoneal dialy sis, previous history of peritonitis, history of right complex ovarian mass who presented wi abdominal pain for 3 days. Patient reports that the pain since Friday and has been progressively increasing symptom s during that time. Pain is generalized central without any significant radiation to right o r left. Has been associated nausea and vomiting about 6 times a day. Denies any diarrhea or fevers. she had peritoneal dialysis yesterday and the flow has been okay. She presented to [facility] 3[facility] back but she did not have enough fluid to dialysis aspirate was not considered relia ble, had WBC of 16 at that point. Today presented to [facility] ER where she wa s found to have leukocytosis of 20. Peritoneal dialysis fluid showed white count of 398 with 61 percent neutrophils and 39 percent monocytes. [facility] and [facility] vancomycin and Fortaz and transferred to our hospital. Currently patient reports that pain is improved but still has some ongoing nausea. In general patient is ambulatory and independent. Denies any smoking or alcohol. Denies any diabetes. Last dialysis was yesterday night. Review of Systems: A 10 point review of systems was negative except as mentioned in the HPI. PMHx: Past Medical History Diagnosis Date Diverticulosis GERD (gastroesophageal reflux disease) Hypercalcemia 09/07/2017 Hyperphosphatemia 10/28/2015 Hypocalcemia 10/28/2015 Itching 10/28/2015 Metabolic acidosis 10/28/2015 Obesity Peritonitis associated with peritoneal dialysis (HCC) 01/24/2017 Uremia 10/28/2015 PSHx: Past Surgical History Procedure Laterality Date ESOPHAGOGASTRODUODENOSCOPY N/A 09/10/2017 Procedure: ESOPHAGOGASTRODUODENOSCOPY; Surgeon: Beena Peters MD; Location: [facility]; Service: Gastroenterology; Laterality: N/A; PERITONEAL CATHETER INSERTION N/A 10/28/2015 Procedure: LAPAROSCOPIC - PERITONEAL DIALYSIS CATH INSERTION; Surgeon: Mundo Ramos MD; Lo cation: [facility]; Service: Vascular; Laterality: N/A; Prior To admission Meds: Prior to Admission medications Medication Sig Start Date End Date Taking? Authorizing Provider amLODIPine (NORVASC) 2.5 MG tablet Take 2.5 mg by mouth daily. Yes Historical Provider ergocalciferol (DRISDOL) 12157 UNITS capsule Take 50,000 Units by mouth once a week. Yes Historical Provider gentamicin (GARAMYCIN) 0.1 % ointment Apply topically 3 (three) times daily. 01/25/17 Yes Shad aB MD sevelamer (RENVELA) 800 MG tablet Take 2 tablets by mouth 3 (three) times daily with meals. 01/25/17 06/07/18 Yes Shad Ba MD ALPRAZolam (XANAX) 0.5 MG tablet Take 0.5 mg by mouth nightly as needed for Sleep. Histo rical Provider HYDROcodone-acetaminophen (NORCO) 5-325 MG per tablet Take 1 tablet by mouth every 6 (six) hours as needed. Patient not taking: Reported on 06/07/2018 03/09/18 Lukas yLnn MD-R2 HYDROcodone-acetaminophen (NORCO) 5-325 MG per tablet Take 1 tablet by mouth every 4 (four) hours as needed. Patient not taking: Reported on 06/07/2018 03/19/18 Arias Singh MD LORazepam (ATIVAN) 1 MG tablet Take 1 mg by mouth every 8 (eight) hours as needed for Anxie ty. Historical Provider ondansetron (ZOFRAN) 8 MG tablet Take 1 tablet by mouth every 8 (eight) hours as needed for Nausea. Patient not taking: Reported on 06/07/2018 01/25/17 Shad Ba MD potassium chloride SA (K-DUR,KLOR-CON) 20 MEQ tablet Take 1 tablet by mouth daily. Patient not taking: Reported on 06/07/2018 03/09/18 03/09/19 ODALIS ColónR2 promethazine (PHENERGAN) 25 MG tablet Take 1 tablet by mouth every 6 (six) hours as needed for Nausea. Patient not taking: Reported on 06/07/2018 03/09/18 ODALIS ColónR2 zolpidem (AMBIEN) 5 MG tablet Take 1 tablet by mouth nightly as needed for Sleep (may repea t once in 1 hr if initial dose not effective). Patient not taking: Reported on 06/07/2018 03/09/18 SEE Colón Allergies: No Known Allergies Family Hx: Family History Problem Relation Age of Onset Other (see comments) Mother healthy Diabetes Father Breast cancer Maternal Grandmother Social Hx: Social History Social History Marital [...] on file Social History Narrative Lives in [facility], [facility], no falls, full code History Smoking Status Former Smoker Packs/day: 0.25 Quit date: 10/10/2015 Smokeless Tobacco Never Used History Alcohol Use No Comment: occ Physical Exam: BP 118/67 (BP Location: Left upper arm) | Pulse 62 | Temp 98.8 F (37.1 C) (Oral) | R enmanuel 16 | Ht 1.575 m (5' 2") | SpO2 98% | ? No No intake/output data recorded. General Appearance: Alert, cooperative, no distress, appears stated age Head: Normocephalic, without obvious abnormality, atraumatic Eyes: PERRL, conjunctiva/corneas clear, EOM's intact. Ears: Normal external ear canals, both ears Nose: Nares normal, septum midline, mucosa normal, no drainage or sinus tenderness Throat: Lips, mucosa, and tongue normal; teeth and gums normal Neck: Supple, symmetrical, trachea midline, thyroid: no enlargement/tenderness/nodules ; no carotid bruit or JVD Back: Symmetric, no curvature, ROM normal, no CVA tenderness Lungs: Clear to auscultation bilaterally, respirations unlabored Chest Wall: No tenderness or deformity Heart: Regular rate and rhythm, S1 and S2 normal, no murmur, rub or gallop Abdomen: right lower quadrant peritoneal dialysis catheter appears clean and intact wit hout any redness or erythema. Generalized tenderness without any guarding or rigidity Soft, bowel sounds active all four quadrants, no masses, no organomegaly Psychiatric: Alert and oriented x 3. Intact Judgement and insight Rectal: Deferred Extremities: Extremities normal, atraumatic, no cyanosis or edema Skin: Skin color, texture, turgor normal, no rashes or lesions Lymph nodes: Cervical nodes normal Neurologic: CNII-XII intact, normal strength, sensation and reflexes throughout Data: CBC: Lab Results Component Value Date WBC 16.42 (H) 06/05/2018 RBC 4.44 06/05/2018 HGB 12.8 06/05/2018 HCT 39.0 06/05/2018 MCV 87.9 06/05/2018 MCH 28.8 06/05/2018 MCHC 32.7 06/05/2018 RDW 43.3 06/05/2018 PLT 400 06/05/2018 MPV 8.6 06/05/2018 DIFFTYPE AUTOMATED 06/05/2018 CMP: Lab Results Component Value Date NA 138 06/05/2018 K 4.4 06/05/2018 CL 96 (L) 06/05/2018 CO2 28 06/05/2018 ANIONGAP 19 06/05/2018 GLUF 98 06/05/2018 BUN 33 (H) 06/05/2018 CREATININE 15 (H) 06/05/2018 BCR 2 06/05/2018 CA 9.4 06/05/2018 CA 9.0 09/07/2017 PROT 7.9 06/05/2018 ALB 2.7 (L) 06/05/2018 GLOB 5.2 (H) 06/05/2018 BILITOT 0.5 06/05/2018 ALP 92 06/05/2018 AST 32 06/05/2018 ALT 21 06/05/2018 EGFR 3 (L) 06/05/2018 Albumin: Lab Results Component Value Date ALB 2.7 (L) 06/05/2018 Magnesium: Lab Results Component Value Date MG 1.8 03/17/2018 Phosphorus: Lab Results Component Value Date PHOS 3.2 03/17/2018 PT/INR: Lab Results Component Value Date INR 0.9 06/05/2018 Troponin: Lab Results Component Value Date TROPONINI <0.020 06/05/2018 Last 3 Troponin: Lab Results Component Value Date TROPONINI <0.020 06/05/2018 TSH: Lab Results Component Value Date TSH 13.600 (H) 04/03/2018 TSH 3.40 10/27/2015 EKG: I personally reviewed the EKG. Findings: None IMAGING: Ct Abdomen & Pelvis Without Contrast Result Date: 06/05/2018 EXAM: CT ABDOMEN AND PELVIS (CT KUB) EXAM DATE: 06/05/2018 01:12 AM. CLINICAL HISTORY: Abdom inal pain. COMPARISONS: CT ABDOMEN PELVIS W CONTRAST 03/16/2018 US PELVIS WITH ENDOVAGINAL 0 04/09/2018 11:23 AM. TECHNIQUE: Routine axial helical CT imaging was performed through the ab domen and pelvis without IV contrast. Reconstructions: Coronal and sagittal. In accordance w [facility] CT protocol optimization, one or more of the following dose reduction techniques were ut ilized for this exam: automated exposure control, adjustment of mA and/or KV based on patien t size, or use of iterative reconstructive technique. FINDINGS: Lung Bases: Unremarkable. Ab dominal Organs: The liver, spleen, and pancreas demonstrate no acute noncontrast abnormaliti es. There is a small left adrenal nodule which likely represents an adenoma. The kidneys are atrophic. Gallbladder/bile ducts: No significant abnormalities. Peritoneal Cavity: No dilat ed or thick-walled bowel is seen. A tibial dialysis catheter is in place. There is a small a mount of free fluid within the pelvis. Pelvic Organs: The urinary bladder is decompressed. T here is a relatively stable right adnexal heterogeneous density which may represent complex right ovarian cyst. Vasculature: No vascular aneurysms. Other: None. 1. No dilated or thick-walled bowel is [...] 05 2018 1 :44AM Referring Provider Line: [phone] ID: [id number] Xr Chest Pa And Lateral Result Date: 06/05/2018 RAMONA OCONNOR 1980 38 years XR CHEST 2 VIEW FRONTAL AND LATERAL 06/05/2018 1:07 AM IN DICATION: Chest pain. COMPARISON study: 06/04/2017. TECHNIQUE: 2 views FINDINGS: Lungs appea r clear. Cardiomediastinal silhouette appears unremarkable. Osseous structures appear unrema rkable. No pleural effusion seen. 1. No acute cardiopulmonary process noted. Electronically signed by MD madelyn Davis 06/05/2018 7:12 AM Us Endovaginal Result Date: 06/05/2018 EXAM: PELVIC ULTRASOUND EXAM DATE: 06/05/2018 03:58 AM. CLINICAL HISTORY: Pelvic pain. COMP ARISON: CT, 06/05/2018. Ultrasound, 04/09/2018. TECHNIQUE: Realtime transvaginal pelvic scan performed with static image documentation. FINDINGS: Uterus: 6.9 x 3.4 x 3.9 cm, volume 48 cc. Anteverted position. Normal overall size and echotexture. Masses: None. Endometrium: 6.2 mm. Normal. Cervix: Unremarkable. Right Ovary: 5.1 x 4.4 x 3.6 cm, volume 42 cc. Complex cy stic area measuring 3.6 x 2.8 x 3.4 cm. Blood flow seen in the ovary. Again seen is some vas cularity within the complex area. Left Ovary: 2.1 cm. Normal echotexture and blood flow. Abdoulaye e Fluid: None. Other: None. 1. Enlarged right ovary measuring 42 cc with complex cystic lesion measuring 3.6 x 2.8 x 3. 4 cm. Some internal vascularity is again seen within this lesion. Neoplasm not excluded. 2. Left ovary appears normal. 3. No torsion seen. RADIA Electronically signed by Lukas Dean MD on Jun 05 2018 4:27AM Referring Provider Line: [phone] ID: [id number] Problem List: Principal Problem: Sepsis (HCC) Active Problems: Ovarian mass, right ESRD on peritoneal dialysis Nausea with vomiting Right ovarian cyst Leukocytosis Peritonitis (HCC) GERD with esophagitis Assessment and Plan: 1. Peritonitis dialysis associated: Appreciate help from nephrology. Continue with vancomyc in and Fortaz for now. Received 1 dose each today. Nephrology has been consulted will follow further recommendations and also cultures. Patient had recent admission to hospital on 03/27 for similar presentation but she received opiates and had hypotension due to same but due to her presentation she was treated with dap tomycin and meropenem for total of 16 days and patient was discharged home. But all cultures had been negative. Can consider discussion with ID in the morning to see if changing antibi otic should be considered. Not consulted as of now. 2. ESRD on PD continue with same. management per nephrology continue with home regimen of s evelamer 3. Hypertension continued home medications 4. Right ovarian complex mass: Patient had a CT last admission and also CEA 125 was negativ e. Patient has seen Dr. Torres as an outpatient and she status post transvaginal ultrasou nd. Current plan to follow-up with him in the clinic for further discussion between risk and benefits for consideration of surgical intervention. Will need more than 2 midnights admit to inpatient. Patient's old records and labs that were available, were reviewed in detail and summarized as above. Dictation and corporate relations manager or software, [employer], used which may contain error for similar s ounding words even after review. Personal communication requested for any clarification. Code Status: Full Code Primary Care Physician: JUAN F Flood MD 06/07/2018 11:00 PM documented in this enc ounter Consult Notes Cathie Marroquin MD - 06/08/2018 3:16 PM PDTFormatting of this note might be d ifferent from the original. Consult* by Cathie Marroquin MD at 06/08/18 7077 Author: Cathie Marroquin MD Service: Infectious Disease Author Type: Physici an Filed: 06/08/18 1537 Date of Service: 06/08/18 1516 Status: Signed Drafter Engineering: Cathie Marroquin MD (Physician) [facility] Service: Infectious Diseases Initial Consult Note Date of Admission: 06/07/2018 Requesting Physician: ,Arelis Maloney MD, Hospitalist Reason for Consult Peritonitis CHIEF COMPLAINT Abdominal pain HISTORY OF PRESENT ILLNESS The patient is a 38 y.o.-year-old female with significant PMH of ESRD on PD for the last 2 years seen in consultation for abdominal pain and peritonitis. Patient's symptoms started a bout 3 days ago with associated nausea and dry heaves. She reports poor appetite and denies any change in color of her dialysis fluid. However, due to her symptoms, she presented to [facility] where she was noted to have le ukocytosis and PD fluid c/w peritonitis. She was then sent to [facility] for HLOC. Review of her chart shows that she was last seen by the ID service on 03/17 for peritonitis. At that time, her fluid cultures did not grow any organisms, and she completed a full course of dapto/merrme/mycamine for 16 days total. She was also being worked up for an ovarian mas s as an outpatient, but currently surgery is not being considered since she is a high risk c andidate and the mass is benign. Patient sleeping comfortably, but tenderness to palpation noted on abdominal exam. Infectio us Disease (ID) consult requested for further evaluation and management. PAST MEDICAL HISTORY Past Medical History Diagnosis Date Diverticulosis GERD (gastroesophageal reflux disease) Hypercalcemia 09/07/2017 Hyperphosphatemia 10/28/2015 Hypocalcemia 10/28/2015 Itching 10/28/2015 Metabolic acidosis 10/28/2015 Obesity Peritonitis associated with peritoneal dialysis (HCC) 01/24/2017 Uremia 10/28/2015 Past Surgical History Procedure Laterality Date ESOPHAGOGASTRODUODENOSCOPY N/A 09/10/2017 Procedure: ESOPHAGOGASTRODUODENOSCOPY; Surgeon: Beena Peters MD; Location: [facility]; Service: Gastroenterology; Laterality: N/A; PERITONEAL CATHETER INSERTION N/A 10/28/2015 Procedure: LAPAROSCOPIC - PERITONEAL DIALYSIS CATH INSERTION; Surgeon: Mundo Ramos MD; Lo cation: [facility]; Service: Vascular; Laterality: N/A; Social History Social History Marital status: Spouse [...] on file Social History Narrative Lives in [facility], [place], no falls, full code Family History Problem Relation Age of Onset Other (see comments) Mother healthy Diabetes Father Breast cancer Maternal Grandmother ALLERGIES No Known Allergies REVIEW OF SYSTEMS A comprehensive review of systems was negative except for abdominal pain; nausea; chills; p oor appetite PHYSICAL EXAM Vital Signs: BP 122/79 | Pulse 96 | Temp 98.7 F (37.1 C) (Oral) | Resp 22 | Ht 1.575 m (5' 2") | Wt 78.4 kg (172 lb 13.5 oz) | SpO2 96% | ? No | BMI 31.61 kg/m Temp: [97.6 F (36.4 C)-98.9 F (37.2 C)] 98.7 F (37.1 C) (06/08 1226) BP: (91-122)/(50-79) 92/50 (06/08 1213) Heart Rate: [62-96] 96 (06/08 122) Resp: [16-22] 22 (06/08 122) SpO2: [94 %-98 %] 96 % (06/08 122) Height: [157.5 cm (5' 2")] 157.5 cm (5' 2") (06/07 2232) Weight: [78.4 kg (172 lb 13.5 oz)-78.7 kg (173 lb 8 oz)] 78.4 kg (172 lb 13.5 oz) (06/08 0 015) BMI (Calculated): [31.8] 31.8 (06/07 2232) Constitutional: The patient is in no acute [...] without wheezes rales or rhonchi. Abdomen: Soft and nontender, bowel sounds are present, there is no organomegaly or mass; +T TP diffusely; no rebound or guarding. PD access site covered. Musculoskeletal: There is no gross deformity or [...] CBC: Lab Results Component Value Date WBC 16.57 (H) 06/08/2018 RBC 3.82 06/08/2018 HGB 11.3 06/08/2018 HCT 33.3 (L) 06/08/2018 MCV 87.3 06/08/2018 MCH 29.7 06/08/2018 MCHC 34.0 06/08/2018 RDW 43.3 06/08/2018 PLT 311 06/08/2018 MPV 8.5 06/08/2018 DIFFTYPE AUTOMATED 06/08/2018 CMP: Lab Results Component Value Date NA 138 06/08/2018 K 3.4 (L) 06/08/2018 CL 100 06/08/2018 CO2 27 06/08/2018 ANIONGAP 14 06/08/2018 GLUF 95 06/08/2018 BUN 40 (H) 06/08/2018 CREATININE 15.3 (H) 06/08/2018 BCR 3 06/08/2018 CA 8.5 06/08/2018 CA 9.0 09/07/2017 PROT 7.9 06/05/2018 ALB 2.7 (L) 06/05/2018 GLOB 5.2 (H) 06/05/2018 BILITOT 0.5 06/05/2018 ALP 92 06/05/2018 AST 32 06/05/2018 ALT 21 06/05/2018 EGFR 3 (L) 06/08/2018 MICROBIOLOGY IMAGING 1. No dilated or thick-walled bowel is seen. Appendix is normal. 2. There is trace free fluid within the pelvis. Peritoneal dialysis catheter is in place. 3. There is mild heterogeneity and enlargement of the right ovary. This could reflect under lying complex cyst or mass. 4. The kidneys are atrophic. Electronically signed by Katlyn Esteves MD on Jun 05 2018 1:44AM Referring Provider Line: [phone] ID: [id number] ASSESSMENT AND RECOMMENDATIONS The patient is a 38 y.o.-year-old female with the following problems: Spontaneous bacterial peritonitis, secondary: agree with vanc/fortaz with low threshold to escalate to empirically treat for MDROs if clinical status worsen. She is currently hemodyna mically stable and afebrile. Patient has only been on PD for 2 years, per history. If SBP continues to recur, may need t o reconsider PD. ESRD on PD: defer to nephrology Ovarian mass (R): being seen as outpatient. No plans for surgery at this time, per mother. Discussed with Dr. Maloney. Thank you for this consultation. Will follow along. Cathie Marroquin MD Infectious Diseases 06/08/2018 oberto, MD Andres - 06/08/2018 12:43 PM PDTFormatting of this note might be different from the orig inal. Consult* by Andres Mejia MD at 06/08/18 1243 Author: Andres Mejia MD Service: Nephrology Author Type: Physician Filed: 06/15/18 2100 Date of Service: 06/08/18 1243 Status: Signed Drafter Engineering: Andres Mejia MD (Physician) [facility] Problem List: Principal Problem: Sepsis (HCC) Active Problems: Ovarian mass, right ESRD on peritoneal dialysis Nausea with vomiting Right ovarian cyst Leukocytosis Peritonitis (HCC) GERD with esophagitis I was asked by the hospital medicine team to see Ms. Oconnor in consult today. As the admit ting/consulting team is familiar with her case, I will not state her past history in detail. Briefly, she is a 38 y.o. female patient with history as delineated in the Past Medical & S urgical History sections. I was called in to evaluate her for an opinion regarding need for PD. Background: This is 38 with ESRD on PD, at [facility] with Dr Chi, went to [facility] in [facility] wit h abdominal pain, I was called by the ED provider there, as he ws concerned that she might h ave peritonitis. PD fluid analysis revealed high WBC, c/w peritonitis. The pt had told ED pr kevyn that she did not drain herself yet. The pt was transferred to [facility]. History & ROS obtained from : pt, chart review. she feels 'fair' today. No history of honey rred vision tinnitus, headache, fever, chills, or cough. No nausea, vomiting,diarrhea, delvis na, or hematochezia. No chest pain, palpitation, dizziness, loss of consciousness, orthopne a, paroxysmal nocturnal dyspnea, or leg edema. No neuro symptoms The following portions of the patient's history [...] negative. amLODIPine 2.5 mg Oral Daily cefTAZidime 500 mg Intravenous Q24H heparin (porcine) 5000 unit/0.5mL 5,000 Units Subcutaneous 3 times per day sevelamer 1,600 mg Oral TID WC vancomycin 750 mg Intravenous See Admin Instructions No intake/output data recorded. I/O this shift: In: 79039 [Other:69772] Out: 14237 [Other:23393] P.E. BP 122/79 | Pulse 96 | Temp 98.7 F (37.1 C) (Oral) | Resp 22 | Ht 1.575 m (5' 2") | Wt 78.4 kg (172 lb 13.5 oz) | SpO2 96% | ? No | BMI 31.61 kg/m General appearance: Pleasant, not in acute [...] and oriented to time, place, and person. Psychiatric: The patient s behavior is normal. Judgment and thought content are normal. Lab Results Component Value Date BUN 40 (H) 06/08/2018 CREATININE 15.3 (H) 06/08/2018 EGFR 3 (L) 06/08/2018 NA 138 06/08/2018 K 3.4 (L) 06/08/2018 CL 100 06/08/2018 CO2 27 06/08/2018 CA 8.5 06/08/2018 PHOS 3.7 06/08/2018 MG 2.7 (H) 06/08/2018 ALB 2.7 (L) 06/05/2018 HGB 11.3 06/08/2018 Assessment and Recommendations: Ms. Oconnor is a 38 y.o. female with ESRD on PD comes with abdominal pain, concerning for p eritonitis ESRD I will cont PD per home prescription UF as tolerated HTN Controlled Anemia No ANGELA at this time Bone mineral disease Renal diet Peritonitis I will resend fluid for cell count and diff Fluid Cx neg so far Vanc and Ceftaz given I discussed with the primary team the case at the time of this encounter. I spent 60 minutes today in interviewing & examining the patient, reviewing & updating the patient's chart, formulating a plan, in addition to patient education and discussions with t he primary/consulting team. Thank you for the opportunity to see this patient in consult today. Please do not hesitate to call me at any time with questions or concerns. Andres Mejia MD FACP documented in this en counter Miscellaneous Notes Plan of Care - Conversion Transaction, Provider Unknown - 06/09/2018 11:16 AM PDT Plan of Care by Marixa Juarez RN at 06/09/181115 Author: Marixa Juarez RN Service: (none) Author Type: Registered Nurse Filed: 06/09/181116 Date of Service: 06/09/181115 Status: Signed Drafter Engineering: Marixa Juarez RN (Registered Nurse) Problem: Pain Goal: Patient's pain/discomfort is manageable Assess and monitor patient's pain using appropriate pain scale. Collaborate with interdisci plinary team and initiate plan and interventions as ordered. Re-assess patient's pain level approximately 1-2 hours after pain management intervention. Premedicate as needed. Outcome: Not Progressing Pt continues to c/o 8/10 pain to abdomen. PRN fentanyl given as ordered. Relief noted Problem: Anxiety Goal: Anxiety is at manageable level Assess and monitor patient's anxiety level. Monitor for signs and symptoms of anxiety both physical and emotional (heart palpitations, chest pain, shortness of breath, headaches, gayle sea, feeling jumpy, restlessness, irritable, apprehensive). Collaborate with interdisciplin elen team and initiate plan and interventions as ordered. Outcome: Progressing Pt experiencing significant anxiety. Pt was found rocking back and forth in bed, taking he r gown on and off and moving her extremities restlessly. PRN ativan given with relief noted . Pt was able to rest peacefully for approx 1 hour. lan o f Care - Conversion Transaction, Provider Unknown - 06/08/2018 10:37 PM PDTFormatting of thi s note might be different from the original. Plan of Care by Katherine Ramos RN at 06/08/182236 Author: Katherine Ramos RN Service: (none) Author Type: Registered Nurse Filed: 06/08/182238 Date of Service: 06/08/182236 Status: Signed Drafter Engineering: Katherine Ramos RN (Registered Nurse) Problem: Pain Goal: Patient's pain/discomfort is manageable Assess and monitor patient's pain using appropriate pain scale. Collaborate with interdisci plinary team and initiate plan and interventions as ordered. Re-assess patient's pain level approximately 1-2 hours after pain management intervention. Premedicate as needed. Outcome: Progressing Medicating for pain per MAR. Fentanyl, ativan, zofran, and phenergan given as needed and to lerated. lan o f Care - Conversion Transaction, Provider Unknown - 06/08/2018 10:45 AM PDTFormatting of thi s note might be different from the original. Plan of Care by Daisha Atwood RN at 06/08/181044 Author: Daisha Atwood RN Service: (none) Author Type: Registered Nurse Filed: 06/08/185 Date of Service: 06/08/181044 Status: Signed Drafter Engineering: Daisha Atwood RN (Registered Nurse) Problem: Psychosocial Needs Goal: Collaborate with patient/family/caregiver to identify patient specific goals for this hospitalization Outcome: Progressing Family at bedside. PRN ativan, zofran, fentanyl and hydro given. Pt making specific goals f or pain control, meals and care plan. lan o f Care - Conversion Transaction, Provider Unknown - 06/08/2018 12:07 AM PDTFormatting of thi s note might be different from the original. Plan of Care by Katherine Ramos RN at 06/08/186 Author: Katherine Ramos RN Service: (none) Author Type: Registered Nurse Filed: 06/08/186 Date of Service: 06/08/186 Status: Signed Drafter Engineering: Katherine Ramos RN (Registered Nurse) Problem: Pain Goal: Patient's pain/discomfort is manageable Assess and monitor patient's pain using appropriate pain scale. Collaborate with interdisci plinary team and initiate plan and interventions as ordered. Re-assess patient's pain level approximately 1-2 hours after pain management intervention. Premedicate as needed. Outcome: Progressing Medicated for pain per MAR. Problem: Anxiety Goal: Anxiety is at manageable level Assess and monitor patient's anxiety level. Monitor for signs and symptoms of anxiety both physical and emotional (heart palpitations, chest pain, shortness of breath, headaches, gayle sea, feeling jumpy, restlessness, irritable, apprehensive). Collaborate with interdisciplin elen team and initiate plan and interventions as ordered. Outcome: Progressing Patient appears anxious due to illness. Patient is expressing these concerns. Managing pain has helped. docume nted in this encounter Plan of [...] in this encounter Results External Lab: BLAINE (06/09/2018 4:31 AM PDT) + + + [...] | | | Basophils | performed at [facility], [address] | K/uL | LAB | | | | [address], | | | | | | [place] [address] | | | | + + + [...] | performed at [facility] | | LAB | | | | [address]ar[address];[place] | | | | | | [address] | | | | + + + [...] | | | | | performed at [facility], [address] | | | | | | [address], | | | | | | [place] [address] | | | | + + + [...] | | at [facility];[address] [place] [address];[place] [address] | | + + + + +---------+ [...] | | | Basophils | performed at [facility], [address] | K/uL | LAB | | | | [address], | | | | | | [place] [address] | | | | + + + [...] EXTERNAL | | | | performed at [facility], [address] | | LAB | | | | [address], | | | | | | [place] [address] | | | | + + + [...] EXTERNAL | | | | performed at [facility], [address] | | LAB | | | | [address], | | | | | | [place] [address] | | | | + + + [...] | | | | | performed at [facility], [address] | | | | | | [facility], | | | | | | [place] [address] | | | | + + + [...] | performed at [facility];[address] [place] [address];[place] [address] | | + + + + +---------+ [...]
--- OUTSIDE RECORDS SUMMARY | ~2020-05-11 | XMS | Encounter Summary ---
Demographics + + + | Address | [address] | | | [place] [address] | + + + | Home Phone [...] [place], [place] | | | | | [address] | | + + + + + | Lydia Palm | ECON | [place], [place] | | | | | [address] | | + + + + + | melinda METZ" | ECON | [place], [place] | | | [place] | | [address] | | + + + + + | Jose C Oconnor | ECON | [address] [place] | | | | | [place] | | | | | [address] | | + + + + + Care Team Providers + +------+ + | Care Supervisor Stitching Department Name | Role | Phone | + [...] | daily thru | [address] | [place] [address] | | | | | February 23, | [place], [place] | Phone: | | | | | Peritonitis | [address] | [phone] | | | | | Procedures | Phone: | Fax: | | | | | [place] | [phone] | [phone] | | | | | [place], | Fax: | | | | | | [address] [place] | [phone] | | | | | | IV [...] + + | 02/18/ | Hospital | [facility] | Jeovanny Correa, | Peritonitis | | 2019 | Encounter | [facility] | Alonzo Jasso MD | associated with | | | | [address] | [address] | peritoneal dialysis, | | | | [place] | [place] [address] | initial encounter | | | | [address] | [phone] | (HCC) (Primary Dx) | | | | [phone] | | | +--------+ + + + [...] encounter Progress Notes Brandin Gray RN - 02/18/2019 6:36 PM PDTFormatting of this note might be different fro m the original. Vitals: 02/18/19 1800 02/18/19 1835 BP: 116/72 109/65 Pulse: 73 67 Resp: [...] signed by: Brandin Gray RN 02/18/2019 19:16 cCoBrandin fleming RN - 02/18/2019 6:00 PM PDT Vitals: 02/18/19 1835 BP: 109/65 Pulse: 67 Resp: 15 Temp: 36.5 C (97.7 F) Ramona Oconnor received into room 443 independent ambulation accompanied by Daughter State s here for Merrem infusion. Reports no change in condition, plan of care since last MD visit . Alert, oriented x 4, cooperative. Electronically signed by: Brandin Gray RN 02/18/2019 19:16 documented in this en counter Miscellaneous Notes Addendum Note - Brandin Gray RN - 02/19/2019 12:38 PM PDT Encounter addended by: Brandin Gray RN on: 02/19/2019 12:38 Actions taken: MAR administration accepted documented in this encounter Plan of [...]
--- OUTSIDE RECORDS SUMMARY | ~2020-05-11 | XMS | Encounter Summary ---
Demographics + + + | Address | [address] | | | [place] [address] | + + + | Home Phone [...] [place], [place] | | | | | [address] | | + + + + + | Lydia Palm | ECON | [place], [place] | | | | | [address] | | + + + + + | melinda METZ" | ECON | [place], [place] | | | [place] | | [address] | | + + + + + | Jose C Oconnor | ECON | [address] | | | | | [place] | | | | | [address] | | + + + + + Care Team Providers + +------+ + | Care Scientific Informatics Analyst Name | Role | Phone | + +------+ + | No, Physician | PCP | Unavailable | + +------+ + Encounter Details +--------+ + + + + | Date | Type | Department | Care Team | Description | +--------+ + + + + | 06/21/ | Orders Only | [facility] | Kylie Alves DNP | | | 2019 | | VASCULAR SURGERY | [address] | | | | | ULTR[address] | [facility] [place] | | | | | [address] | [address] | | | | | [place] | | | | | | [address] | | | | | | [phone] | | | +--------+ + + + [...] Volume flow: 914 cc/min: Diameter: 7.6 mm. Oceana loop: | | | PSV: 52 cm/sec. Volume flow: 236 cc/min: Diameter: 6 9.6 mm. | | | Efferent loop: PSV: 71 cm/sec. Volume flow: 740 cc/min: Diameter: | | | 9.1 mm. Vein outflow: 68 cm/s | | + + + + + | Procedure Note | + + | Endy, Rad Conversion - 07/16/2019 9:41 AM PDT UV [...] cm/sec. Volume flow: 914 cc/min: Diameter: 7.6 mm.Oceana loop: PSV: 52 cm/sec. | | Volume [...] flow: 914 cc/min: Diameter: 7.6 mm. | |Oceana loop: PSV: 52 cm/sec. Volume flow: 236 [...]
--- OUTSIDE RECORDS SUMMARY | ~2020-05-11 | XMS | Encounter Summary ---
Demographics + + + | Address | [address] | | | [place] [address] | + + + | Home Phone | | + + + | Preferred Language | Unknown | + + + | Marital Status | | + + + | Tenriism Affiliation | Unknown | + + + | Race | Unknown | + + + | Ethnic Group | Unknown | + + + Author + + + | Author | [facility] | | | and [place] | + + + | Organization | [facility] | | | and [place] | + + + | Address | Unknown | + + + | Phone | Unavailable | + + + Support + + + + + | Name | Relationship | Address | Phone | + + + + + | Lyubov Smalls | ECON | [place], [place] | | | | | [address] | | + + + + + | Lydia Palm | ECON | [place], [place] | | | | | [address] | | + + + + + | melinda METZ" | ECON | [place], [place] | | | [place] | | [address] | | + + + + + | Jose C Oconnor | ECON | [address] | | | | | [place] | | | | | [address] | | + + + + + Care Team Providers + +------+ + | Care Blackjack Supervisor Name | Role | Phone | [...] 2018 | | [address] | [address] | | | | | [place] | [address] [place], | | | | | [address] | [place] [address] | | | | | [phone] | [phone] | | | | | | | [...]
--- OUTSIDE RECORDS SUMMARY | ~2020-05-11 | XMS | Encounter Summary ---
Demographics + + + | Address | [address] | | | [place] [address] | + + + | Home Phone [...] [place], [place] | | | | | [address] | | + + + + + | Lydia Palm | ECON | [place], [place] | | | | | [address] | | + + + + + | melinda METZ" | ECON | [place], [place] | | | [place] | | [address] | | + + + + + | Jose C Oconnor | ECON | [address] | | | | | [place] | | | | | [address] | | + + + + + Care Team Providers + +------+ + | Care Beveler Name | Role | Phone | + +------+ + | No, Physician | PCP | Unavailable | + +------+ + Reason for Visit +--------+--------+ + | Reason | Onset | Comments | | | Date | | +--------+--------+ + | Wound | 09/23/ | | | | 2019 | | +--------+--------+ + Encounter Details +--------+ + + + + | Date | Type | Department | Care Team | Description | +--------+ + + + + | 09/23/ | Telephone | [facility] | Marixa Mendoza, | Wound | | 2019 | | VASCULAR SURGERY | Parole Hearing Officer | | | | | [address] | | | | | | [place] | | | | | | [address] | | | | | | [phone] | | | +--------+ + + + [...] this encounter Miscellaneous Notes Telephone Encounter - Marixa Mendoza Parole Hearing Officer - 09/23/2019 2:40 PM PSTPer Júnior y: re: the two wound vacs on the patient's L arm.... The lower wound is "really superficial" and she has removed the vac and is applying collage n and polymim. The proximal wound will continue with the wound vac. SamP d ocumented in this encounter Plan of Treatment Not on filedocumented as of this encounter Visit Diagnoses Not on filedocumented in this encounter
--- OUTSIDE RECORDS SUMMARY | ~2020-05-11 | XMS | Encounter Summary ---
Demographics + + + | Address | [address] | | | [place] [address] | + + + | Home Phone [...] [place], [place] | | | | | [address] | | + + + + + | Lydia Palm | ECON | [place], [place] | | | | | [address] | | + + + + + | melinda METZ" | ECON | [place], [place] | | | reba | | [address] | | + + + + + | Jose C Reeves | ECON | [place] | | | | | [place] | | | | | [phone] | | + + + + + Care Team Providers + +------+ + | Care Counter Caser Name | Role | Phone | + +------+ + PCP | Unavailable | + +------+ + Encounter Details +--------+ + + + + | Date | Type | Department | Care Team | Description | +--------+ + + + + | 10/25/ | Hospital | [facility] | Ami Easton, | Renal failure; | | 2015 - | Encounter | [facility] [address] | [address] | Anemia, unspecified | | | | [address] | [address] [place] | anemia type; Rectal | | 10/31/ | | [place], [place] | [id number] | bleed | | 2015 | | [address] | | | | | | [phone] | | | +--------+ + + + [...] 10/31/2015 2:30 PM PST Discharge Summaries by SEE Ledezma at 10/31/15 6841 Author: SEE Ledezma Service: Hospitalist Author Type: Resident Filed: 10/31/15 1806 Date of Service: 10/31/151429 Status: Attested Automotive Collision Repair Instructor: SEE Ledezma (Resident-Y2) Cosigner: Kemal Maloney MD at 184 Attestation signed by Kemal Maloney MD at 10/31/151844 Patient seen and examined. Renal biopsy showed global glomerulosclerosis. Patient is tolera ting PD well and uremic symptoms have resolved. Will receive PD training tomorrow in [place]. Discussed with Dr. Reyna. Agree with discharge note by Dr. Hyde. [facility] Service: Hospitalist Discharge Summary Date of Admission: 10/25/2015 Date of Discharge: 10/31/2015 Discharge Provider: Irvin Hyde MD-R1 Treatment Team: Consulting Physician: Chago Chi MD Admitting Provider: Ami Easton MD Discharge Diagnoses: Principal Problem: Uremia Active [...] on labs done earlier this week at [facility]. HOSPITAL COURSE: Patient presented with malaise, nausea [...] INSERTION; Surgeon: Mundo Ramos MD; L ocation: [facility]; Service: Vascular; Laterality: N/A; [...] >40 mg/dL Final Comment: Testing performed at [facility], [address] [place] [id number] TRIGLYCERIDES Date Value Ref Range Status 10/26/2015 137 <150 mg/dL Final Comment: Testing performed at [facility], [address] [place] [address] LDL CALC Date Value Ref Range Status 10/26/2015 62 <100 mg/dL Final Comment: Testing performed at [facility], [address] [place] [address] CHOLESTEROL Date Value Ref Range Status 10/26/2015 125 <200 mg/dL Final Comment: Testing performed at [facility], [address] [place] [address] X-ray Chest 2 View Frontal & Lateral 10/29/2015 RAMONA REEVES XR CHEST 2 VIEW FRONTAL [...] findings. Ultrasound Kidneys And Bladder 10/25/2015 RAMONA TREVOR LEANDRO US KIDNEYS AND BLADDER 10/25/2015 6:17 PM [...] bladder. Ct Needle Biopsy Kidney 10/26/[address] NEEDLE BIOPSY KIDNEY 10/26/2015 10:57 AM HISTORY: [age] years. Female. Hematuria and severe acute kidney injury. COMPARISON: Renal ultrasound 1 12/26/2014.. DESCRIPTION OF PROCEDURE: Prior to beginning the procedure, I obtained written informed consent. A timeout was performed. Patient positioning: Prone. 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 Follow up: [facility] [address] [facility] [address] Mundo Ramos MD [address] [place] [address] Follow up in 2 week(s) [facility] [address] [facility] [address] Follow up on 11/01/2015 Please be there for your dialysis training, starting tomorrow at 7am. Medication List START taking these medications diphenhydrAMINE 25 mg capsule QTY: 30 capsule Refills: 0 Commonly known as: BENADRYL Take 1 capsule by mouth every 6 (six) hours as needed for Itching. CONTINUE taking these medications ergocalciferol 84164 UNITS capsule Refills: 0 Commonly known as: DRISDOL loratadine 10 MG tablet Refills: 0 Commonly known as: CLARITIN omeprazole 20 MG capsule Refills: 0 Commonly known as: PRILOSEC STOP taking these medications predniSONE 20 MG tablet Commonly known as: DELTASONE Where to Get Your Medications These are the prescriptions that you need to picker feeder. You may get the following medications from any pharmacy - diphenhydrAMINE 25 mg capsule Discharge took 30 minutes, to include final examination, discussion of admission, and prepa ration of prescriptions, instructions for on-going care, follow-up and documentation of disc harge summary. Irvin Hyde MD-R1 10/31/2015 dotaz iyer in this encounter Progress Notes Conversion Transaction, Provider Unknown - 10/31/2015 4:22 PM PSTFormatting of this note m ight be different from the original. Progress Notes by Conchita Valencia RD at 10/31/151621 Author: Conchita Valencia RD Service: (none) Author Type: Registered Dietitian Filed: 10/31/151626 Date of Service: 10/31/151621 Status: Signed Automotive Collision Repair Instructor: Conchita Valencia RD (Registered Dietitian) RD received call to provide renal diet education to pt and family prior to discharge this a fternoon. Discussed diet with pt, , and family, including Phos, K+, Sodium restrictions and hi gh protein diet. Provided handouts from the [employer] Answered all questions. Encouraged followup with dialysis dietitian. Conchita Valencia RD onver patric Transaction, Provider Unknown - 10/31/2015 3:23 PM PST Nurse Progress Note by Cielo Beebe RN at 10/31/15 1523 Author: Cielo Beebe RN Service: (none) Author Type: Registered Nurse Filed: 10/31/15 1524 Date of Service: 10/31/151522 Status: Signed Automotive Collision Repair Instructor: Cielo Beebe RN (Registered Nurse) Pt has been discharged home. She knows to follow up as directed tomorrow at [facility] for nito virk. She is ambulating, tolerating food, voiding and pain is controlled. She has no further questions at this time. Amrik Moreno MD - 10/31/2015 12:52 PM PSTFormatting of this note might be different from the or iginal. Progress Notes by Amrik Reyna MD at 10/31/15 6428 Author: Amrik Reyna MD Service: Nephrology Author Type: Physician Filed: 10/31/15 2481 Date of Service: 10/31/15 1254 Status: Signed Automotive Collision Repair Instructor: Amrik Reyna MD (Physician) PCP : [facility] LOS: 6 days Ramona Reeves is a 35 y.o. 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 She started with urgent PD protocol. Assumed [...] manifested with uremic sympt oms. She initiated ASSEM[employer]ER [employer] AND GAS TURBINE with PD 10/28/15. Clinically close to euvolemic [...] outpatient dialysis once spot is obtained in [place]. Discussed with the home dialysis coordinator, Flakita. sHe may be discharged today and really to go to [place] tomorrow to begin training. I have had [...] charting completed later after rounds. Dictation software, Quietly, used which may contain error for similar [...] of 8 am tomorrow if she stays. lIrvin salazar MD - 10/31/2015 11:49 AM PST Progress Notes by Irvin Hyde MD-R2 at 10/31/15 1149 Author: Irvin Hyde MD-R2 Service: Hospitalist Author Type: Resident Filed: 10/31/15 1206 Date of Service: 10/31/151148 Status: Attested Automotive Collision Repair Instructor: ODALIS LedezmaR2 (Resident-Y2) Cosigner: Kemal Maloney MD at 1835 Attestation signed by Kemal Maloney MD at 10/31/151835 Patient seen and examined. Discussed with Dr. Reyna. Will discharge home today. Agree with this note of Dr. Hyde. [facility] Service: Hospitalist Progress Note Hospital Day: LOS: [...] on labs done earlier this week at [facility]. Events Overnight: Patient states her nausea persists, [...] t runk. DATA Recent Labs Lab 10/31/15 04010/30/1540910/29/15451 WBC 8.97 10.51 7.89 RBC 2.89* 2.84* [...] not displayed. BMP: Recent Labs Lab 10/31/15 0401 10/30/15 0410 [...] this interval not displayed. Recent Labs Lab 10/31/15 0401 10/30/15 0410 10/29/15 0452 MG 2.4 2.3 2.4 Recent [...] with case management, for [facility] in [place]. Active Problems: UTI (urinary tract infection) - [...] Status: Full Code Irvin Hyde MD-R1 10/31/2015 onadair n Transaction, Provider Unknown - 10/31/2015 11:30 AM PSTFormatting of this note might be di fferent from the original. Case Management by Francoise Aparicio RN at 10/31/15 6113 Author: Francoise Aparicio RN Service: (none) Author Type: Pile Fabric Knitter Filed: 10/31/15 9469 Date of Service: 10/31/15 1130 Status: Signed Automotive Collision Repair Instructor: Francoise Aparicio RN (Pile Fabric Knitter) Phone call from [facility] Coordination (medicaid case management) . She is willing to work on getting [facility] nurses to visit pt upon DC as well as have contact with pt to see that she has all the services she needs upon DC. onver patric Transaction, Provider Unknown - 10/30/2015 3:44 PM PST Progress Notes by Ayanna Cheek at 10/30/15 6123 Author: Ayanna Cheek Service: (none) Author Type: (none) Filed: 10/30/15 3312 Date of Service: 10/30/15 1541 Status: Signed Automotive Collision Repair Instructor: Ayanna Cheek Spoke to patient who chose [facility]. Referral and medical records sent to [facility] on 10/30/15 at 3:30 p.m. Amrik Moreno MD - 10/30/2015 2:37 PM PSTFormatting of this note might be different from the or iginal. Progress Notes by Amrik Reyna MD at 10/30/15 4556 Author: Amrik Reyna MD Service: Nephrology Author Type: Physician Filed: 10/30/15 7587 Date of Service: 10/30/15 3309 Status: Signed Automotive Collision Repair Instructor: Amrik Reyna MD (Physician) PCP : [facility] LOS: 5 days Ramona Reeves is a 35 y.o. 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 She started with urgent PD protocol. Assumed [...] manifested with uremic sympt oms. She initiated ASSEMBLER [employer]AM AND GAS TURBINE with PD 10/28/15. Clinically close to euvolemic [...] carbonate. Continue calcitriol. Discussed with the dialysis [place], Ayanna Cheek, who is covering for dialysis Arthur Tyson. Plan for outpatient dialysis once spot is obtained in [place]. I have had a discussion regarding need [...] charting completed later after rounds. Dictation software, Quietly, used which may contain error for similar [...] Irvin Hyde MD-R2 at 10/30/15 1302 Author: Irvin Hyde MD-R2 Service: Hospitalist Author Type: Resident Filed: 10/30/15 1459 Date of Service: 10/30/15 1302 Status: Attested Automotive Collision Repair Instructor: ODALIS LedezmaR2 (Resident-Y2) Cosigner: Cesar Gatica MD at 10/30/15 183 Attestation signed by Cesar Gatica MD at 10/30/15 183 I have seen and examined the patient and agree with the residents note [facility] Service: Hospitalist Progress Note Hospital Day: LOS: [...] on labs done earlier this week at [facility]. Events Overnight: Patient states her nausea is [...] runk. DATA Recent Labs Lab 10/30/15 0410 10/29/15 0452 10/28/15 0339 WBC 10.51 7.89 8.98 RBC 2.84* 2.60* 2.72* HCT 24.0* 21.6* 22.9* MCV 84.3 82.9 84.4 MCH 26.9* 27.2 27.1 MCHC 32.0 32.8 32.0 RDW 45.9 46.8 46.4 PLT 210 179 185 MPV 9.4 9.8 9.4 DIFFTYPE AUTOMATED MANUAL AUTOMATED Recent Labs Lab 10/30/15 0410 10/29/1545110/28/1533810/26/15183010/26/15 0510/25/15 1415 K 3.7 4.1 4.0 < > [...] interval not displayed. BMP: Recent Labs Lab 10/30/15 04110/29/1545110/28/1533810/26/15 18310/26/15 0510/25/15 1415 NA 139 138 140 < > [...] this interval not displayed. Recent Labs Lab 10/30/15 0410 10/29/15 0452 10/28/15 0339 MG 2.3 2.4 2.7* Recent Labs [...] Management by Francoise Aparicio RN at 10/30/15 104 Author: Francoise Aparicio RN Service: (none) Author Type: Pile Fabric Knitter Filed: 10/30/15 104 Date of Service: 10/30/151042 Status: Signed Automotive Collision Repair Instructor: Francoise Aparicio RN (Pile Fabric Knitter) Phone call to Ayanna Ham [phone] (covering for Soo Portillo dialysis coordinator), she will work on arranging chair time in the [place] area and notify us of times. onver patric Transaction, Provider Unknown - 10/29/2015 8:02 PM PST Progress Notes by Ashleigh Rudolph RN at 10/29/152001 Author: Ashleigh Rudolph RN Service: Nephrology Author Type: Registered Nurse Filed: 10/29/152006 Date of Service: 10/29/152001 Status: Signed Automotive Collision Repair Instructor: Ashleigh Rudolph RN (Registered Nurse) Pt Found [...] Notes by Laura Fung RD at 10/29/15 3432 Author: Laura Fung RD Service: (none) Author Type: Registered Dietitian Filed: 10/30/15 0856 Date of Service: 10/29/151737 Status: Signed Automotive Collision Repair Instructor: Laura Fung RD (Registered Dietitian) 10/29/15 0236 Subjective Timepoint Follow up (H risk ) [...] Notes by Cesar Gatica MD at 10/29/15 1242 Author: Cesar Gatica MD Service: Hospitalist Author Type: Physician Filed: 10/30/15 6054 Date of Service: 10/29/15 1242 Status: Addendum Automotive Collision Repair Instructor: Cesar Gatica MD (Physician) Related Notes: Original Note by Cesar Gatica MD (Physician) filed at 10/29/15 1326 [facility] Service: Hospitalist Progress Note Hospital Day: LOS: [...] with no edema. DATA Recent Labs Lab 10/29/1545110/28/15 03310/27/15 0546 WBC 7.89 8.98 8.63 HGB 7.1* 7.3* 8.1* HCT 21.6* 22.9* 25.5* PLT 179 185 195 NEUTOPHILPCT -- 74.34 76.55 MONOPCT -- 4.80 4.66 Recent Labs Lab 10/29/1545110/28/1533810/27/15 0546 10/25/15 1415 NA 138 140 139 [...] 10/29/2015 Invalid input(s): LABALBU Recent Labs Lab 10/29/1545110/28/15 0339 10/27/15 0546 MG 2.4 2.7* 2.7* No results for input(s): AMYLASE in the last 168 hours. No results for input(s): PHART, PO2ART, XRI0CWC, U9NRJCMS, BEART in the last 168 hours. Recent [...] Notes by Amrik Reyna MD at 10/29/15 7435 Author: Amrik Reyna MD Service: Nephrology Author Type: Physician Filed: 10/29/152006 Date of Service: 10/29/15 8165 Status: Signed Automotive Collision Repair Instructor: Amrik Reyna MD (Physician) PCP : [facility] LOS: 4 days Ramona Reeves is a 35 y.o. woman followed for CKD stage 5 presenting with uremia a nd needing to start ASSEMBLER STEAM AND GAS TURBINE. Assumed nephrology care from Dr. Chi 10/27/15 [...] sampling for IF or EM. Serological workup [facility] hepatitis panel, HIV testing, syphilis negative. Imaging with kidney ultrasound from 10/10 04/24, seen by myself, shows normal sized kidneys. Diagnostic kidney biopsy has been done . It is quite possible she has chronic kidney disease which is now manifested with urem ic symptoms. She initiated ASSEMBLER STEAM AND GAS TURBINE with PD 10/28/15. BP okay: Clinically close [...] charting completed later after rounds. Dictation software, Quietly, used which may contain error for similar [...] Service: Vascular Surgery Author Type: Physician Filed: 10/29/15 1014 Date of Service: 10/29/15 1013 Status: Signed Automotive Collision Repair Instructor: Mundo Ramos MD (Physician) [facility] Service: Vascular Surgery Progress Note Peritoneal dialysis catheter site clean and dry. Will start PD today. Will sign off now. Patient will follow-up with me in 2 weeks. Please feel free to call with any questions or concerns. Mundo Ramos MD 10/29/2015 Amrik Clark MD - 10/10 7:52 PM PST Progress Notes by Amrik Reyna MD at 10/28/15 195 Author: Amrik Reyna MD Service: Nephrology Author Type: Physician Filed: 10/28/151958 Date of Service: 10/28/151951 Status: Signed Automotive Collision Repair Instructor: Amrik Reyna MD (Physician) PCP : [facility] LOS: 3 days aRmona Reeves is a 35 y.o. woman followed [...] charting completed later after rounds. Dictation software, Quietly, used which may contain error for similar [...] Service: Hospitalist Author Type: Resident Filed: 10/28/15 3948 Date of Service: 10/28/15909 Status: Attested Automotive Collision Repair Instructor: Irvin Hyde MD-R2 (Resident-Y2) Cosigner: Cesar Gatica MD at 10/29/15 1245 Attestation signed by Cesar Gatica MD at 10/29/15 1245 I have seen and examined the patient and agree with residents note [facility] Service: Hospitalist Progress Note Hospital Day: LOS: [...] on labs done earlier this week at [facility]. Events Overnight: Patient remains nauseated with three [...] legs, arms, trunk. DATA Recent Labs Lab 10/28/1533810/27/15 0546 10/26/15 1831 10/26/15 0939 10/26/15 0526 [...] this interval not displayed. Recent Labs Lab 10/28/1533810/27/1546 10/26/15 18310/26/15 0526 10/25/15 1415 K 4.0 4.8 4.5 4.7 4.8 [...] 3* 3* 3* BMP: Recent Labs Lab 10/28/15 0339 10/27/15 0546 10/26/15 1831 10/26/15 0526 10/25/15 1415 NA 140 139 142 139 137 [...] Notes by Amrik Reyna MD at 10/27/15 0441 Author: Amrik Reyna MD Service: Nephrology Author Type: Physician Filed: 10/28/15 6358 Date of Service: 10/27/15 1441 Status: Signed Automotive Collision Repair Instructor: Amrik Reyna MD (Physician) PCP : [facility] LOS: 2 days Ramona Reeves is a [...] charting completed later after rounds. Dictation software, Quietly, used which may contain error for similar [...] MD-R2 Service: Hospitalist Author Type: Resident Filed: 10/27/151903 Date of Service: 10/27/151122 Status: Attested Automotive Collision Repair Instructor: Irvni Hyde MD-R2 (Resident-Y2) Cosigner: Cesar Gatica MD at 10/28/15 1444 Attestation signed by Cesar Gatica MD at 10/28/15 1444 I have seen and examined the patient and agree with the residents note [facility] Service: Hospitalist Progress Note Hospital Day: LOS: [...] on labs done earlier this week at [facility]. Events Overnight: Patient is still fatigued and [...] legs, arms, trunk. DATA Recent Labs Lab 10/27/15 0546 10/26/15 1831 10/26/15 1556 10/26/15 0939 10/26/15 0526 [...] MANUAL Recent Labs Lab 10/27/15 0546 10/26/15 18310/26/15 0526 10/25/15 1415 K 4.8 4.5 4.7 [...] BMP: Recent Labs Lab 10/27/15 0546 10/26/15 18310/26/15 0526 10/25/15 1415 NA 139 142 139 [...] trending down, 14.69 today. BUN 109. - [place] and Lambda light chain ratio is normal. [...] Malnutrition - Patient has been seen by [facility] Hospital records reviewed. Labs and radiologic studies [...] Case Management by LUCILLE Neumann at 10/26/15 0799 Author: LUCILLE Neumann Service: (none) Author Type: Pile Fabric Knitter Filed: 10/26/15 7552 Date of Service: 10/26/151458 Status: Signed Automotive Collision Repair Instructor: LUCILLE Neumann (Pile Fabric Knitter) 10/26/15 6329 Discharge Planning Evaluation Admitting Diagnosis Acute renal [...] was asleep so patient's spouse (Jose C Leandro) answered CM assessment questions.) Prior functional status (Independent with ADL's) Power of Gold Letterer No Anticipated Discharge Plan Post Acute Care Needs Other (comment) (TBD) Resources Financial concerns No Transportation issues No;Comment (Spouse - Jose C [phone] will transport.) Patient/Family concerns [place] [facility] in [place] Previous home health equipment No Vascular access device No Ostomy/Drains/Appliances No Anticipated Disposition Facility Type Home Met with patient's spouse (Jose C Reeves [phone]) for CM assessment (due to patient st ill being asleep) and discussed discharge planning. Pt is a 35 y.o., female who lives with h er spouse, sister and sister's children in [place]. The patient has had significant weight loss in past few months...complaining that nothing tastes good, by report. Patient a dmitted to [facility] with Dx of renal failure on 10-25-15. Spouse and family have been visiting a nd attentive. [facility] Patient's insurance:[employer] and Medicaid Coverage concerns: no Medication coverage/concerns: no [facility] Bedside Delivery: Community resources utilized / needed: TBD Assistance in transportation: Spouse - Jose C [phone] Identification of any specific education / training: TBD Barriers to Discharge / Alternative housing needed: TBD Anticipated DCP: TBD Lois A Catalina koum, Chago Peter MD - 10/26/2015 12:02 PM PSTFormatting of this note might be different from th e original. Progress Notes by Chago Chi MD at 10/26/15 1202 Author: Chago Chi MD Service: Nephrology Author Type: Physician Filed: 10/27/15 011 Date of Service: 10/26/15 1202 Status: Addendum [employer]otive Collision Repair Instructor: Chago Chi MD (Physician) Related Notes: Original Note by Chago Chi MD (Physician) filed at 10/27/15 0114 [facility] Service: Nephrology Progress Note Hospital Problem List: [...] results tomorrow 4. No acute indication for ASSEMBLER STEAM AND GAS TURBINE at this time. 5. Epo subcut 10K [...] the primary/consulting team. CHAGO CHI MD 10/27/2015 Irvin Apple M D - 10/26/2015 11:36 AM PST Progress Notes by Irvin Hyde MD-R2 at 10/26/15 1136 Author: Irvin Hyde MD-R2 Service: Hospitalist Author Type: Resident Filed: 10/26/151814 Date of Service: 10/26/151135 Status: Attested Automotive Collision Repair Instructor: Irvin Hyde MD-R2 (Resident-Y2) Cosigner: Cesar Gatica MD at 10/27/15 1630 Attestation signed by Cesar Gatica MD at 10/27/15 1630 I have seen and examined the patient and agree with the residents note [facility] Service: Hospitalist Progress Note Hospital Day: LOS: [...] on labs done earlier this week at [facility]. Events Overnight: Patient seen and examined. Patient [...] fferent from the original. Progress Notes by Ysabel Corraletic Intern at 10/26/15 1100 Author: Aleksandra Corral Intern Service: (none) Author Type: Registered Dietitian Filed: 10/26/15 1100 Date of Service: 10/26/15 1100 Status: Attested Automotive Collision Repair Instructor: Ysabel Corraletic Intern (Registered Dietitian) Cosigner: ALL Rider 10/26/15 6985 Attestation signed by Isaiah Grimaldo RD at 10/26/[address] 10/26/15 1009 Subjective Timepoint Admit Pt c/o Pt triggered for screen secondary to weight loss and poor oral intake. Admitted to [facility] with acute renal failure of unknown etiology. Pt was out of department having a biop sy of kidneys, diet history obtained from family. Mother reports pt has had wt loss and poo r po intake since Sep of this year. Pt has some appetite, [...] Date of Service: 10/26/15 1018 Status: Signed Automotive Collision Repair Instructor: Rohan Chase MD (Physician) [facility] Service: Radiology Sedation Note See separate procedure [...] Oximetry: yes IV access: yes Suction: yes potline monitor: yes Heart sounds: normal Lung sounds: clear Sedation agent(s) used: Versed, Fentanyl I personally supervised: sedation and procedure(s). Total sedation time: See nurse's notes for total time. Rohan Chase MD 10/26/2015 onversio n Transaction, Provider Unknown - 10/26/2015 7:01 AM PSTFormatting of this note might be di fferent from the original. Progress Notes by Christina Snowden RN at 10/26/15 0701 Author: Christina Snowden RN Service: (none) Author Type: Registered Nurse Filed: 10/26/15 0702 Date of Service: 10/26/15 07 Status: Signed Automotive Collision Repair Instructor: Christina Snowden RN (Registered Nurse) Dr. Chi notified of hemoglobin and hematocrit results this morning. Orders to transfuse t he 2 units now. Kandice Snowden RN onver patric Transaction, Provider Unknown - 10/26/2015 12:57 AM PST Progress Notes by Christina Snowden RN at 10/26/15 0057 Author: Christina Snowden RN Service: (none) Author Type: Registered Nurse Filed: 10/26/1556 Date of Service: 10/26/1556 Status: Signed [employer] Instructor: Christina Snowden RN (Registered Nurse) Patient and mother informed of need for urine specimen. Kandice Snowden RN onver patric Transaction, Provider Unknown - 10/25/2015 10:00 PM PST Progress Notes by Christina Snowden RN at 10/25/152199 Author: Christina Snowden RN Service: (none) Author Type: Registered Nurse Filed: 10/25/152205 Date of Service: 10/25/152199 Status: Signed [employer] Collision Rep[employer] Instructor: Christina Snowden RN (Registered Nurse) Confirmed with Dr. Chi no blood transfusion to be given tonight. Also informed of new c/o chest discomfort. Kandice Snowden RN onver patric Transaction, Provider Unknown - 10/25/2015 9:55 PM PST Progress Notes by Christina Snowden RN at 10/25/152154 Author: Christina Snowden RN Service: (none) Author Type: Registered Nurse Filed: 10/25/152207 Date of Service: 10/25/152154 Status: Signed [employer] Coll[employer] Rep[employer] Instructor: Christina Snowden RN (Registered Nurse) Dr. Easton notified of patient c/o chest discomfort 02/17 with deep breaths, sharp in charac ter. Also informed patient is refusing blood transfusion based on recs from Dr. Chi. Kandice mills RN onver patric Transaction, Provider Unknown - 10/25/2015 9:35 PM PST Progress Notes by Georgette Cardozo RPH at 10/25/152134 Author: Georgette Cardozo RPH Service: (none) Author Type: Pharmacist Filed: 10/25/152134 Date of Service: 10/25/152134 Status: Signed [employer] Instructor: Georgette Cardozo RPH (Pharmacist) Renal Dosing Monitoring: Ramona Reeves 35 y.o. female Pharmacy dosing for renal function per Dr. Easton SCr 17, est. CrCl = 5 ml/min Plan per protocol: Medications dosed appropriately for current renal function. Pharmacy will continue monitoring patient for appropriate dosing per renal function. 10/25/2015 9:34 PM Pharmacist: Georgette Cardozo onver patric Transaction, Provider Unknown - 10/25/2015 5:57 PM PST Case Management by LUCILEL Cloud at 10/25/151756 Author: LUCILLE Cloud Service: (none) Author Type: Double End Tenoner Setter Filed: 10/25/151756 Date of Service: 10/25/151756 Status: Signed [employer] Instructor: LUCILLE Cloud (Double End Tenoner Setter) Discharge planning: CM spoke with pt's ED MD regarding discharge needs. Per MD s report , he did not identify needs and feels that the pt does not need to be seen by a Pile Fabric Knitter at this time. I encouraged a CM consult as needs arise. Pt is independent with good soci al support, will return to prior living situation. Saundra Pimentel docume nted in this encounter H&P Notes Ami Easton MD - 10/25/2015 3:13 PM PSTFormatting of this note might be different f rom the original. H&P by Ami Easotn MD at 10/25/15 510 Author: Ami Easton MD Service: Hospitalist Author Type: Physician Filed: 10/27/15 7373 Date of Service: 10/25/151512 Status: Addendum [employer] Instructor: Ami Easton MD (Physician) Related Notes: Original Note by Ami Easton MD (Physician) filed at 10/25/15 2310 [facility] HOSPITALIST SERVICE Admission History & Physical PT: Ramona Reeves AGE/SEX: 35 y.o. female ROOM: 07/19 PCP: RICK OTTO NONE : 1980 TODAY'S DATE: 10/25/2015 CHIEF COMPLAINT: itching HISTORY OF PRESENT ILLNESS: The patient is a 35-year-old lady who has been having itching since the end of August. She thinks that she has a rash and she has been using soap and baths and psoriasis creams and n othing has helped. She went to her primary care physician and lab work was done and she was told to come to the hospital today because her creatinine was abnormal at around 15 and she was anemic at 7.2 per report. The patient says that she has been losing weight since the pas t 2 months she thinks she has lost 40 pounds. She thinks that food has been tasting bland, b ut she denies any metallic taste. She has not been vomiting, but she has been dry heaving. S he denies any shortness of breath. She feels like she is always cold and is having chills at home even when everyone else is hot. She does smoke 2 to 3 cigarettes a day and she used to be a heavy drinker. She used to drink 10 shots of whiskey a day, but quit in July. She does not use any drugs. Roughly a year ago, she was told that she has a 1.4 cm adrenal mass when she was being work ed up for diverticulitis, but she denies being told that she had any renal issues then. This is the first time that she is hearing about kidney failure. She denies any family history o f renal problems. She did not have any significant hospitalizations when she was a child. Sh e denies any swelling. Her denies any swelling in her face. No leg edema. She denies any dysuria. She thinks she has been urinating as often as she normally would. She denies a ny blood in her stool. Her stools are dark brown, but not red or black. She does not take an y medications regularly. Pt denies taking any new medications. She does not have facial swelling or LE swelling. No frothy urine, no blood in the urine. REVIEW OF SYSTEMS: No fevers + chills, fatigue, change in appetite, weight loss No headache, dizziness, focal weakness. No cough, colds, shortness of breath, chest pain, palpitations. + nausea No vomiting, abdominal pain, diarrhea, constipation, dysuria, frequency, hematuria, hematoc hezia and melena. Complete review of systems done. All others negative. PAST MEDICAL HISTORY: Past Medical History Diagnosis Date Diverticulosis GERD (gastroesophageal reflux disease) Obesity PAST SURGICAL HISTORY: History reviewed. No pertinent past surgical history. PRIOR TO ADMISSION MEDS: Prior to Admission medications Medication Sig Start Date End Date Taking? Authorizing Provider loratadine (CLARITIN) 10 MG tablet Take 10 mg by mouth daily. Yes Historical Provider omeprazole (PRILOSEC) 20 MG capsule Take 20 mg by mouth every morning before breakfast. Y es Historical Provider ergocalciferol (DRISDOL) 72527 UNITS capsule Take 50,000 Units by mouth once a week. His torical Provider ALLERGIES: No Known Allergies FAMILY MEDICAL HISTORY History reviewed. No pertinent family history. SOCIAL HISTORY History Substance Use Topics Smoking status: Current Every Day Smoker -- 0.25 packs/day Smokeless tobacco: Never Used Alcohol Use: Yes Comment: occ OBJECTIVE Vital Signs: BP 144/85 mmHg | Pulse 88 | Temp(Src) 97.2 F (36.2 C) (Oral) | Resp 12 | Ht 1.575 m (5' 2") | Wt 85 kg (187 lb 6.3 oz) | BMI 34.27 kg/m2 | SpO2 100% | LMP 10/24/2015 Constitutional: Alert and oriented to person, place and time. Appears well developed and we ll nourished. Body mass index is 34.27 kg/(m^2). HEENT: 3mm pupils, moist mucous membranes, pink conjunctivae and anicteric sclerae. No cerv ical lymphadenopathy. Cardiovascular: Normal rate and rhythm. Normal heart sounds with S1 and S2. No murmurs, gal lops or rubs. Pulmonary: Patient is able to speak in full sentences. Breath sounds are clear bilaterally. No wheezing or rales. Abdominal: Soft and non-tender. Bowel sounds are present. No rebound or guarding. No palpab le masses. No fluid wave. Extremities: No edema. No cyanosis. Neurological: No focal neurologic signs. Skin: Dry, multiple excoriations in all extremities, no erythema. Psychiatric: Normal mood and affect. Normal judgment and behavior. LABS Results for orders placed or performed during the hospital encounter of 10/25/15 (from the past 24 hour(s)) Urinalysis (reflex to microscopic/reflex to culture) Collection Time: 10/25/15 1:30 PM Result Value Ref Range COLOR UA YELLOW CLARITY HAZY Specific [place], UA 1.011 1.002 - 1.030 LEUKOCYTE ESTERASE TRACE (A) NEGATIVE NITRITE NEGATIVE NEGATIVE UROBILINOGEN NORMAL <1.1 mg/dL PROTEIN 100 (A) NEGATIVE mg/dL PH,URINE 5.0 5.0 - 8.0 BLOOD LARGE (A) NEGATIVE KETONES NEGATIVE NEGATIVE mg/dL BILIRUBIN NEGATIVE NEGATIVE GLUCOSE 50 (A) NEGATIVE mg/dL WBC 26-49 0 - 5 /hpf RBC >100 0 - 5 /hpf BACTERIA 4+ (A) NONE SEEN EPITHELIAL 16-25 /lpf Mucus, UA 1+ AMORPHOUS CRYSTAL 1+ CBC with differential Collection Time: 10/25/15 2:15 PM Result Value Ref Range WBC 11.42 (H) 3.80 - 11.00 K/uL RBC 2.69 (L) 3.70 - 5.10 M/uL HGB 6.7 (LL) 11.3 - 15.5 g/dL HCT 22.3 (L) 34.0 - 46.0 % MCV 82.9 80.0 - 100.0 fl MCH 25.0 (L) 27.0 - 34.0 pg MCHC 30.2 (L) 32.0 - 35.5 g/dL RDW SD 44.6 37 - 53 fl PLT 253 150 - 400 K/uL MPV 9.0 fl DIFF TYPE MANUAL Neutrophils Manual 96 % Lymphocytes Manual 4 % Neutrophils Absolute 10.96 (H) 1.90 - 7.40 K/uL Lymphocytes Absolute 0.46 (L) 1.00 - 3.90 K/uL Platelet Estimate ADEQUATE MORPHOLOGY 2+ Comprehensive metabolic panel Collection Time: 10/25/15 2:15 PM Result Value Ref Range SODIUM 137 135 - 143 mmol/L POTASSIUM 4.8 3.5 - 4.9 mmol/L CHLORIDE 106 99 - 109 mmol/L CO2 16 (L) 23 - 32 mmol/L ANION GAP AGAP 20 5 - 20 mmol/L GLUCOSE 150 (H) 65 - 99 mg/dL BUN 99 (H) 8 - 25 mg/dL CREATININE 17 (H) 0.50 - 1.00 mg/dL BUN/CREAT 6 CALCIUM 6.9 (L) 8.5 - 10.5 mg/dL TOTAL PROTEIN 7.9 6.3 - 8.2 g/dL Albumin 3.3 (L) 3.6 - 5.0 g/dL GLOBULIN 4.6 1.3 - 4.9 g/dL A/G 0.7 (L) 1.0 - 2.4 TBIL 0.3 0.1 - 1.5 mg/dL ALK PHOS 76 35 - 115 U/L AST 11 10 - 45 U/L ALT 15 10 - 65 U/L EGFR 3 (L) >60 mL/min/1.73m2 Protime Collection Time: 10/25/15 2:15 PM Result Value Ref Range INR 1.0 aPTT Collection Time: 10/25/15 2:15 PM Result Value Ref Range APTT 28 23 - 32 seconds Type and Screen Collection Time: 10/25/15 2:15 PM Result Value Ref Range ABO/RH(D) A POSITIVE ABO/RH(D) Testing performed at [facility];[address] [place] [id number] ANTIBODY SCREEN NEGATIVE ANTIBODY SCREEN Testing performed at [facility];[address] [place] [address]27 ARM BAND NUMBER [id number] ARM BAND NUMBER Testing performed at [facility];[address] [place] [phone] PROBLEM LIST Principal Problem: Acute renal failure (ARF) (HCC) Active Problems: UTI (urinary tract infection) Anemia Loss of weight Fatigue Adrenal mass (HCC) ASSESSMENT AND PLAN Patient is a 35-year-old female admitted for itching and was found to be in acute renal roberta lure. She was also found to have a UTI and anuria. Dr. Chi has been consulted and the plan is to do a biopsy on her tomorrow. She is still having some shortness of breath and chest d iscomfort with walking around but she is anemic and so the plan is to transfuse her after biopsy. Urine studies and blood studies have been sent for workup of her renal failure. Al l her symptoms for now could possibly be explained by the acute renal failure. She fortunate ly is still making urine and I will continue to hydrate her for now. PRN benadryl ordered for itching. Cont protonix. Ff-up urine and blood cultures. DVT prophylaxis - SCDs - heparin subcutaneous Spent >50% of time counseling or coordinating care Patient's old records and labs were reviewed in detail and summarized. More than 70 mins were spent on the review of H/P, imaging and labs, formulation of assessm ent and plan, discussion with the patient/family, staff and providers. Code Status: Full code Primary Care Physician: PER PT NONE AMI EASTON M.D. 10/25/2015 4:08 PM documente d in this encounter Consult Notes Mundo Ramos MD - 10/28/2015 12:34 PM PST Consults by Mundo Ramos MD at 10/28/15 8775 Author: Mundo Ramos MD Service: Vascular Surgery Author Type: Physician Filed: 10/28/15 1238 Date of Service: 10/28/15 1236 Status: Signed [employer] Instructor: Mundo Ramos MD (Physician) Subjective: Patient is a 35 y.o. female with PMH significant for diverticulosis and morbid obesity was found to be in acute renal failure. Due to needing halfway dialysis access, vascular surg alaina was consulted for placement of peritoneal dialysis catheter. Of note, patient has itchi ng all over and this may be secondary to uremia. Patient Active Problem List Diagnosis Date Noted Metabolic acidosis 10/28/2015 Hyperphosphatemia 10/28/2015 Itching 10/28/2015 Hypocalcemia 10/28/2015 Uremia 10/28/2015 Severe protein-calorie malnutrition (HCC) 10/26/2015 UTI (urinary tract infection) 10/25/2015 Loss of weight 10/25/2015 Fatigue 10/25/2015 Adrenal mass (HCC) 10/25/2015 Past Medical History Diagnosis Date Diverticulosis GERD (gastroesophageal reflux disease) Obesity Metabolic acidosis 10/28/2015 Hyperphosphatemia 10/28/2015 Itching 10/28/2015 Hypocalcemia 10/28/2015 Uremia 10/28/2015 History reviewed. No pertinent past surgical history. Prescriptions prior to admission Medication Sig Dispense Refill Last Dose loratadine (CLARITIN) 10 MG tablet Take 10 mg by mouth daily. 10/24/2015 at time omeprazole (PRILOSEC) 20 MG capsule Take 20 mg by mouth every morning before breakfast. 10/24/2015 at Unknown time predniSONE (DELTASONE) 20 MG tablet Take 40 mg by mouth daily. 10/25/2015 at 0800 ergocalciferol (DRISDOL) 69540 UNITS capsule Take 50,000 Units by mouth once a week. More than a month at Unknown time No Known Allergies History Substance Use Topics Smoking status: Current Every Day Smoker -- 0.25 packs/day Smokeless tobacco: Never Used Alcohol Use: Yes Comment: occ History reviewed. No pertinent family history. Review of Systems Pertinent items are noted in HPI. Objective: Patient Vitals for the past 8 hrs: BP Temp Temp src Pulse Resp SpO2 10/28/15 1152 (!) 152/97 mmHg 98.7 F (37.1 C) Oral 91 16 96 % 10/28/15 0742 145/83 mmHg 98.9 F (37.2 C) Oral 87 15 92 % Vitals reviewed. Constitutional: Patient appears well-developed and well-nourished. HENT: Head: Normocephalic and atraumatic. Mouth/Throat: Oropharynx is clear and moist. Cardiovascular: Normal rate and regular rhythm. Pulmonary/Chest: Effort normal and breath sounds normal. Abdominal: Soft. Bowel sounds are normal. Musculoskeletal: Normal range of motion. Neurological: Patient is alert and oriented to person, place, and time. Skin: Skin is warm and dry. Rash all over body. Vascular: Palpable radial and brachial pulses bilaterally. 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 Discussed pe ritoneal dialysis and placement. PARQ was done and consent was obtained. Will take to OR f or laparoscopic peritoneal dialysis catheter placement. koum, Chago Peter MD - 10/25/2015 5:13 PM PST Consults by Chago Chi MD at 10/25/151712 Author: Chago Chi MD Service: Nephrology Author Type: Physician Filed: 10/26/1555 Date of Service: 10/25/151712 Status: Addendum [employer] Instructor: Chago Chi MD (Physician) Related Notes: Original Note by Chago Chi MD (Physician) filed at 10/26/1552 Hospital Problem List: Principal Problem: Acute renal failure (ARF) (HCC) Active Problems: UTI (urinary tract infection) Anemia Loss of weight Fatigue Adrenal mass (HCC) I was asked by the ED team to see Ms. Reeves in consult on an urgent basis today. As the a dmitting/consulting team is familiar with her case, I will not state her past history in det ail. Briefly, she is a 35 y.o. female patient with history as delineated in the Past Medical & Surgical History sections. She was admitted with severe SHAWN. I was called in to evaluate her for SHAWN (acute kidney injury, acute renal failure). She presented with: referred from [facility] [place] for same. He story dates back to late 08/2015 when she started to experience itching & had a papular rash. Rash star medina on her right arm; within weeks it spread to all her body; she tried multiple OTC topical remedies. She took a 1 time 3 mL children Amoxicillin dose last month. Otherwise no new med s orally. She has been on daily Omeprazole for at least 2 years. She presented to the PCP 2 days ago. Labs drawn. Showed the severely low GFR. She reports her GFR is normal at baseline . History & ROS obtained from : [facility], ED team here, chart review. The patient has history of GERD, diabetes mellitus, but she is on no hypoglycemic m eds. She denies any history of prolonged exposure to NSAIDs or recent exposure to nephrotox ins. No recent IV dye exposure. She denies any recurrent nephrolithiasis or pyelonephritis. She also denies any history of urinary retention, gross hematuria, dysuria, or foamy urine. There is no family history of renal genetic diseases such as PKD. Her baseline Creatinine i s unknown; but she says she was never told her kidney function was abnormal while hospitaliz ed last year. She says that she feels 'fair ' today. But she has been feeling tired x2 months now.* No history of blurred vision, tinnitus, headache, fever, chills, or cough. Her appetite has be en inadequate x2 months.* +ve dysgeusia also.* No nausea, vomiting, abdominal pain, diarrhe a, melena, or hematochezia. No chest pain, palpitation, dizziness, loss of consciousness, o rthopnea, paroxysmal nocturnal dyspnea, or leg edema. No dysuria, incontinence, or symptoms of UTI. She had 3 or 4 nightly nocturia.* The following portions of the patient's history [...] systems were reviewed and were otherwise negative. sodium chloride 10 mL Intravenous Q8H sodium chloride (IV) 110 mL/hr at 10/25/15 1651 BP 136/87 mmHg | Pulse 77 | Temp(Src) 97.8 F (36.6 C) (Oral) | Resp 16 | Ht 1.575 m (5' 2") | Wt 85 kg (187 lb 6.3 oz) | BMI 34.27 kg/m2 | SpO2 99% | LMP 10/24/2015 General appearance: Pleasant, not in acute distress. [...] normal. Lab Results Component Value Date BUN 99* 10/25/2015 CREATININE 17* 10/25/2015 EGFR 3* 10/25/2015 NA 137 10/25/2015 K 4.8 10/25/2015 CL 106 10/25/2015 CO2 16* 10/25/2015 CA 6.9* 10/25/2015 ALB 3.3* 10/25/2015 HGB 6.7* 10/25/2015 Assessment: Ms. Reeves is a 35 y.o. female patient with stage 3 SHAWN (acute kidney injury): unknown sweetie ology. It remains possible that she had the SHAWN several weeks or months ago & we are seeing the tail of it now. R/O AIN from Omeprazole She has acute uremia; but she has no uremic encephalopathy currently. Admitted with severe SHAWN. RENAL FUNCTION: Severely worse than baseline BLOOD PRESSURE: ok ELECTROLYTES: abnormal Sodium: ok Potassium: ok Calcium: corrected is ok Magnesium: To be checked Phosphorus: To be checked Acid/Base: Met acidosis ANEMIA: severe ALBUMIN: low URINALYSIS: No UTI found so far; +ve pyuria; +ve microscopic hematuria VOLUME STATUS: Slightly depleted I discussed today with Ms. Reeves the meaning of her severe SHAWN and the interaction of chema t with her hemodynamics. Recommendations: 1. Hold omeprazole 2. Start IVF bicarb as ordered. 3. No acute indication for [employer] TURBINE at this time. 4. get renal U/S. 5. Send rU/A, UCr, Kim, UN, eos. 6. Epo subcut 10K x1 7. With AM labs: RFP, Mag. 8. 9. Strict I/O & daily weights. 10. Dose all of her meds to her current estimated GFR. 11. Continue to avoid all kinds of nephrotoxins. 12. Target euvolumia with a MAP>75 mmHg as possible. 13. Given her tendency for anasarca: Encourage adequate nutritional intake & close dietitia n F/U. Encourage ambulation safely. Encourage the adequate use of an incentive spirometer. ED F/U: -I sent her for serologic/chronic infection studies: HBsAg, HCV Ab, HIV 1&2 Abs, WBTB, RPR, ESR, C3, C4, CRYSTAL, ANCA, Anti-GBM, PT/PTT, lipid panel, SFLC, SPIF, Cryoglobulins, rTSH, HbA 1c,CPK, U eos, U myoglobin screen. -CT-guided biopsy Kidney biopsy in AM -add on anemia studies I discussed with the ED team the case at the time of this encounter. I spent 45 minutes today in reviewing & updating the patient's chart, formulating a plan, i n addition to patient education and discussions with the primary/consulting team. Critical care was necessary to treat or prevent imminent or life-threatening deterioration of the fol lowing conditions: acute uremia & possible need for urgent dialysis . Critical care was time spent personally by me on the following activities: evaluation of patient's response to amber atment, obtaining history from patient or surrogate, ordering and review of laboratory studi es, development of treatment plan with patient or surrogate, review of old charts, discussio ns with primary/consulting team, ordering and performing treatments and interventions and re -evaluation of patient's condition. Comments: I was in constant attendance of the patient fo r the time listed here and this time was greater than 45 minutes. This patient was with a po tentially life or organ threatening acute uremia & possible need for urgent dialysis . Had t his not been done the patient could have suffered disability and/or . Emergent interven tions were required to prevent life or organ threatening deterioration. Time is exclusive of separately billable procedures and of time spent caring for other patients. Thank you Dr Oconnell for the opportunity to see this patient in consult today. Please do not hesitate to call me at any time with questions or concerns. CHAGO CHI MD documented in thi s encounter ED Notes Conversion Transaction, Provider Unknown - 10/25/2015 7:06 PM PSTFormatting of this note m ight be different from the original. ED Notes by Fatou Benson RN at 10/25/151905 Author: Fatou Benson RN Service: Emergency Department Author Type: Registered Nurse Filed: 10/25/151905 Date of Service: 10/25/151905 Status: Signed [employer] Instructor: Fatou Benson RN (Registered Nurse) Report from Rosmery Benson RN 12/16/15 1906 onver patric Transaction, Provider Unknown - 10/25/2015 6:28 PM PST ED Notes by Rosmery Dunn RN at 10/25/151827 Author: Rosmery Dunn RN Service: (none) Author Type: Registered Nurse Filed: 10/25/151827 Date of Service: 10/25/151827 Status: Signed Autom[employer] Collision Repair Instructor: Rosmery Dunn RN (Registered Nurse) Family at bedside. Rosmery Dunn RN 10/25/151827 onver patric Transaction, Provider Unknown - 10/25/2015 6:28 PM PST ED Notes by Rosmery Dunn RN at 10/25/151827 Author: Rosmery Dunn RN Service: (none) Author Type: Registered Nurse Filed: 10/25/151827 Date of Service: 10/25/151827 Status: Signed [employer]otive Collision Rep[employer] Instructor: Rosmery Dunn RN (Registered Nurse) Patient is resting comfortably. Rosmery Dunn RN 10/25/151827 onver patric Transaction, Provider Unknown - 10/25/2015 6:23 PM PST ED Notes by Rosmery Dunn RN at 10/25/151822 Author: Rosmery Dunn RN Service: (none) Author Type: Registered Nurse Filed: 10/25/151822 Date of Service: 10/25/151822 Status: Signed [employer]otive [employer] Instructor: Rosmery Dunn RN (Registered Nurse) Pt remains in u/s Rosmery Dunn RN 10/25/151822 onver patric Transaction, Provider Unknown - 10/25/2015 4:59 PM PST ED Notes by Samira Matthews RN at 10/25/151658 Author: Samira Matthews RN Service: (none) Author Type: Registered Nurse Filed: 10/25/151658 Date of Service: 10/25/151658 Status: Signed Automotive [employer]ision Rep[employer] Instructor: Samira Matthews RN (Registered Nurse) Lab at bedside, 2nd set of blood cultures done Samira Matthews RN 10/25/151658 onver patric Transaction, Provider Unknown - 10/25/2015 4:26 PM PST ED Notes by Rosmery Dunn RN at 10/25/151625 Author: Rosmery Dunn RN Service: (none) Author Type: Registered Nurse Filed: 10/25/151625 Date of Service: 10/25/151625 Status: Signed [employer] Instructor: Rosmery Dunn RN (Registered Nurse) Lab phlebo at bedside Rosmery Dunn RN 10/25/151625 onver patric Transaction, Provider Unknown - 10/25/2015 4:22 PM PST ED Notes by Rosmery Dunn RN at 10/25/151621 Author: Rosmery Dunn RN Service: (none) Author Type: Registered Nurse Filed: 10/25/151621 Date of Service: 10/25/151621 Status: Signed Automotive Collision Repair Instructor: Rosmery Dunn RN (Registered Nurse) Family at bedside. Rosmery Dunn RN 10/25/151621 onver patric Transaction, Provider Unknown - 10/25/2015 4:22 PM PST ED Notes by Rosmery Dunn RN at 10/25/151621 Author: Rosmery Dunn RN Service: (none) Author Type: Registered Nurse Filed: 10/25/151621 Date of Service: 10/25/151621 Status: Signed [employer] Instructor: Rosmery P Dunn, RN (Registered Nurse) Patient is resting comfortably. Rosmery Dunn RN 10/25/151621 onver patric Transaction, Provider Unknown - 10/25/2015 4:21 PM PST ED Notes by Rosmery Dunn RN at 10/25/151620 Author: Rosmery Dunn RN Service: (none) Author Type: Registered Nurse Filed: 10/25/151620 Date of Service: 10/25/151620 Status: Signed [employer] Instructor: Rosmery Dunn RN (Registered Nurse) Blood draw for blood cultures attempted without success. Lab called again for blood draw Rosmery Dunn RN 10/25/151620 onver patric Transaction, Provider Unknown - 10/25/2015 3:45 PM PST ED Notes by Rosmery Dunn RN at 10/25/15 154 Author: Rosmery Dunn RN Service: (none) Author Type: Registered Nurse Filed: 10/25/15 154 Date of Service: 10/25/151544 Status: Signed [employer] Instructor: Rosmery Dunn RN (Registered Nurse) MD at bedside. hospitalist Rosmery Dunn RN 10/25/15 154 onver patric Transaction, Provider Unknown - 10/25/2015 2:20 PM PST ED Notes by Rosmery Dunn RN at 10/25/15 142 Author: Rosmery Dunn RN Service: (none) Author Type: Registered Nurse Filed: 10/25/15 142 Date of Service: 10/25/151419 Status: Signed [employer] Instructor: Rosmery Dunn RN (Registered Nurse) Meal ordered for pt Rosmery uDnn RN 10/25/151420 onver patric Transaction, Provider Unknown - 10/25/2015 2:03 PM PST ED Notes by Rosmery Dunn RN at 10/25/151402 Author: Rosmery Dunn RN Service: (none) Author Type: Registered Nurse Filed: 10/25/151402 Date of Service: 10/25/151402 Status: Signed [employer] Instructor: Rosmery Dunn RN (Registered Nurse) Family at bedside. Rosmery Dunn RN 10/25/151402 onver patric Transaction, Provider Unknown - 10/25/2015 2:03 PM PST ED Notes by Rosmery Dunn RN at 10/25/151402 Author: Rosmery Dunn RN Service: (none) Author Type: Registered Nurse Filed: 10/25/151402 Date of Service: 10/25/151402 Status: Signed [employer] Instructor: Rosmery Dunn RN (Registered Nurse) Patient is resting comfortably. Rosmery Dunn RN 10/25/151402 onver patric Transaction, Provider Unknown - 10/25/2015 1:45 PM PST ED Notes by Rosmery Dunn RN at 10/25/151344 Author: Rosmery Dunn RN Service: (none) Author Type: Registered Nurse Filed: 10/25/151345 Date of Service: 10/25/151344 Status: Signed [employer] Instructor: Rosmery Dunn RN (Registered Nurse) [facility] phoned and asked to fax lab results to us. Dr oconnell aware Rosmery Dunn RN 10/25/151345 Amandeep An DO - 10/25/2015 1:43 PM PSTFormatting of this note might be different from the or iginal. ED Provider Notes by Amandeep Oconnell DO at 10/25/151342 Author: Amandeep Oconnell DO Service: -Emergency Author Type: Physician Filed: 10/26/15 0815 Date of Service: 10/25/15 8044 Status: Signed [employer] Instructor: Amandeep Oconnell DO (Physician) [facility] Department of Emergency Medicine 1:53 PM History of Present Illness Patient Identification Ramona Reeves is a 35 y.o. female. Patient information was obtained from patient and relative(s). History/Exam limitations: none. Patient presented to the Emergency Department by: Car Chief Complaint Chief Complaint Patient presents with Rash pt states she was seen at a clinic in [place] and told to come here to see a kidney spec ialist d/t acute renal failure The patient presents to ED with complaints of rash. Onset of symptoms was 09/09/15, with a worsening course since that time. The symptoms are described to be of moderate severity. The patient describes the quality and location of the symptoms as the following: starting on ar ms and now it has radiated to the whole body. The patient also complains of intermittent gayle sea, sluggish with exertion, leg swelling and weight loss. Patient denies urination issues, bowel issues, and facial swelling. Care prior to arrival consisted of lotions and soaks, wit h minimal relief. The patient went to [facility] for a persistent itchy rash. The physi jose says that he didn't know what was causing the rash so he did blood work. The patient th en got a call the next day saying that she needed to come her JONG. The physician said that her creatinine was 15. The patient has no other complaints at this time. [facility] Past Medical History Diagnosis Date Diverticulosis GERD (gastroesophageal reflux disease) Obesity History reviewed. No pertinent past surgical history. Prior to Admission medications Medication Sig Start Date End Date Taking? Authorizing Provider loratadine (CLARITIN) 10 MG tablet Take 10 mg by mouth daily. Yes Historical Provider omeprazole (PRILOSEC) 20 MG capsule Take 20 mg by mouth every morning before breakfast. Y es Historical Provider ergocalciferol (DRISDOL) 57800 UNITS capsule Take 50,000 Units by mouth once a week. His torical Provider No Known Allergies History Social History Marital Status: Spouse Name: N/A Number of Children: N/A Years of Education: N/A Occupational History Not on file. Social History Main Topics Smoking status: Current Every Day Smoker -- 0.25 packs/day Smokeless tobacco: Never Used Alcohol Use: Yes Comment: occ Drug Use: No Sexual Activity: Partners: Male Other Topics Concern Not on file Social History Narrative No narrative on file History reviewed. No pertinent family history. Review of Systems Constitutional: Positive for "sluggish" feeling with exertion and weight loss Negative for fever, chills Eyes: Negative for vision changes Nose: Negative for congestion, nosebleeds Throat: Negative for sore throat CV/Resp: Negative for chest pain, goaxylcgz-kc-tjnbsz, cough GI: Positive for intermittent nausea Negative for abdominal pain, vomiting, or diarrhea : Negative for urinary problems Musculoskeletal: Positive for leg swelling Negative for back pain, joint pain Skin: Positive for rash Neuro/Psych: Negative for headache Endo/heme/Lymph: Negative for swollen lymph nodes, easy bruising All other systems reviewed and negative except as noted. Physical Exam BP 136/73 mmHg | Pulse 94 | Temp(Src) 97.7 F (36.5 C) | Resp 18 | Ht 1.575 m (5' 2") | Wt 85 kg (187 lb 6.3 oz) | BMI 34.27 kg/m2 | SpO2 100% | LMP 10/24/2015 Vital signs interpretation: WNL Pulse Oximetry interpretation: Normal General: Alert, in no apparent distress Eyes: Normal inspection, pupils equal and round, non-icteric ENT: Ears normal Nose normal Pharynx normal Neck: Normal inspection Supple Cardiovascular: Rate and rhythm normal No murmurs Respiratory: Breath sounds normal bilaterally No rales, wheezing or rhonchi Abdomen: Soft, non-tender, non-distended No guarding or rebound Rectal: Hemoccult positive stool Back: Normal inspection Extremities: Trace lower extremity edema Skin: Diffuse nonspecific excoriated rash Color normal Warm and dry Neuro: Alert, no AMS No gross motor/sensory deficits Medical Decision Making and Emergency Department Course ED Department Course Patient presents to ED with complaints of rash. On exam the patient has diffuse nonspecific excoriated rash and trace lower extremity edema. My DDx includes, but is not limited to: ac henrry renal failure, dehydration, electrolyte abnormality, upper GI bleed, lower GI bleed, patricia lulitis, dermatitis, vs other. Will order IV fluids, CBC, CMP, INR, APTT, type and screen, a nd reevaluate the patient. 2:01 PM. Reviewed labs from [facility] which shows WBC is 10.5, HGB is 7.2, HCT is 22.0, PLT is 290, urea nitrogen is 98, and creatinine is 15.08. 2:03 PM. Performing rectal exam now which shows hemoccult positive stool. I discussed that the patient may need a transfusion and I discussed the risks of transfusions. The patient is agreeable to get a transfusion if she needs one. 2:11 PM. Reviewed urinalysis results which shows trace leukocyte esterase, 100 protein, lar ge blood, 50 glucose, 26-49 WBC, >100 RBC, 4+ bacteria, and 16-25 epithelial. 2:51 PM. Received a critical lab value which was the HGB is 6.7. 2:57 PM. Reviewed additional lab results which shows a creatinine of 17, BUN of 99, and EGF R of 3. The patient will need a transfusion. I will consult with nephrology and admit the pa tient. I will request a bed and page a hospitalist. 3:00 PM. Patient reevaluation. I discussed the plan to admit the patient for a blood transf usion and further evaluation. The patient understands and agrees with the plan. All question s and concerns addressed. 3:13 PM. I discussed the patient's case with Dr. Easton, Hospitalist who accepts the patien t and will resume patient care in the hospital. 3:34 PM. I discussed the patient's case with Dr. Chi, [facility] who will see the patie nt today, recommends giving Rocephin, and agrees with the plan of care. Records Reviewed Old medical records. Nursing notes. No previous [facility] ED visits available in [facility] for review. Laboratory Evaluation Results Procedure Component Value Ref Range Date/Time Type and Screen [[id number]] Collected: 10/25/15 1415 Order Status: Completed Specimen Information: Blood Updated: 10/26/15 0723 ABO/RH(D) A POSITIVE ANTIBODY SCREEN NEGATIVE ARM BAND NUMBER [id number] UNIT NUMBER [id number] BLOOD COMPONENT TYPE LEUKODEPLETED PC UNIT DIVISION 00 STATUS OF UNIT ALLOCATED TRANSFUSION STATUS OK TO TRANSFUSE CROSSMATCH RESULT COMPATIBLE UNIT NUMBER [id number] UNIT NUMBER Result: Testing performed at [facility];[address] [place] [address];[place] [address] BLOOD COMPONENT TYPE -- Result: LEUKODEPLETED PC Testing performed at [facility];[address] [place] [address];[place] [address] UNIT DIVISION -- Result: 00 Testing performed at [facility];[address] [place] [address];[place] [address] STATUS OF UNIT -- Result: ISSUED Testing performed at [facility];[address] [place] [address];[place] [address] TRANSFUSION STATUS -- Result: OK TO TRANSFUSE Testing performed at [facility];[address] [place] [address] CROSSMATCH RESULT -- Result: COMPATIBLE Testing performed at [facility];[address] [place] [address];[place] [address] Blood Culture Set 2 [[id number]] Collected: 10/25/15 165 Order Status: Sent Specimen Information: Blood / Blood Updated: 10/25/152024 Blood Culture Set 1 [[id number]] Collected: 10/25/15 1638 Order Status: Sent Specimen Information: Blood / Blood Updated: 10/25/152024 CBC with differential [[id number]] (Abnormal) Collected: 10/25/151414 Order Status: Completed Specimen Information: Blood Updated: 10/25/151456 WBC 11.42 (H) 3.80 - 11.00 K/uL RBC 2.69 (L) 3.70 - 5.10 M/uL HGB 6.7 (LL) 11.3 - 15.5 g/dL HCT 22.3 (L) 34.0 - 46.0 % MCV 82.9 80.0 - 100.0 fl MCH 25.0 (L) 27.0 - 34.0 pg MCHC 30.2 (L) 32.0 - 35.5 g/dL RDW SD 44.6 37 - 53 fl PLT 253 150 - 400 K/uL MPV 9.0 fl DIFF TYPE MANUAL Neutrophils Manual 96 % Lymphocytes Manual 4 % Neutrophils Absolute 10.96 (H) 1.90 - 7.40 K/uL Lymphocytes Absolute 0.46 (L) 1.00 - 3.90 K/uL Platelet Estimate ADEQUATE MORPHOLOGY 2+ Comprehensive metabolic panel [[id number]] (Abnormal) Collected: 10/25/15 1415 Order Status: Completed Specimen Information: Blood Updated: 12/16/15 1456 SODIUM 137 135 - 143 mmol/L POTASSIUM 4.8 3.5 - 4.9 mmol/L CHLORIDE 106 99 - 109 mmol/L CO2 16 (L) 23 - 32 mmol/L ANION GAP AGAP 20 5 - 20 mmol/L GLUCOSE 150 (H) 65 - 99 mg/dL BUN 99 (H) 8 - 25 mg/dL CREATININE 17 (H) 0.50 - 1.00 mg/dL BUN/CREAT 6 CALCIUM 6.9 (L) 8.5 - 10.5 mg/dL TOTAL PROTEIN 7.9 6.3 - 8.2 g/dL Albumin 3.3 (L) 3.6 - 5.0 g/dL GLOBULIN 4.6 1.3 - 4.9 g/dL A/G 0.7 (L) 1.0 - 2.4 TBIL 0.3 0.1 - 1.5 mg/dL ALK PHOS 76 35 - 115 U/L AST 11 10 - 45 U/L ALT 15 10 - 65 U/L EGFR 3 (L) >60 mL/min/1.73m2 Protime [[id number]] Collected: 10/25/15 141 Order Status: Completed Specimen Information: Blood Updated: 10/25/15 1445 INR 1.0 aPTT [[id number]] Collected: 10/25/151414 Order Status: Completed Specimen Information: Blood Updated: 10/25/151444 APTT 28 23 - 32 seconds Urinalysis (reflex to microscopic/reflex to culture) [[id number]] (Abnormal) Collected: 10/25/15 1330 Order Status: Completed Specimen Information: Urine, Clean Catch Updated: 10/25/15 14 00 COLOR UA YELLOW CLARITY HAZY Specific [place], UA 1.011 1.002 - 1.030 LEUKOCYTE ESTERASE TRACE (A) NEGATIVE NITRITE NEGATIVE NEGATIVE UROBILINOGEN NORMAL <1.1 mg/dL PROTEIN 100 (A) NEGATIVE mg/dL PH,URINE 5.0 5.0 - 8.0 BLOOD LARGE (A) NEGATIVE KETONES NEGATIVE NEGATIVE mg/dL BILIRUBIN NEGATIVE NEGATIVE GLUCOSE 50 (A) NEGATIVE mg/dL WBC 26-49 0 - 5 /hpf RBC >100 0 - 5 /hpf BACTERIA 4+ (A) NONE SEEN EPITHELIAL 16-25 /lpf Mucus, UA 1+ AMORPHOUS CRYSTAL 1+ I personally reviewed the lab results and they have been posted to the chart. Pertinent po sitive and negative findings have been addressed appropriately. Radiology and EKG Evaluation Imaging Results None ED Diagnoses Final diagnoses Renal failure Anemia, unspecified anemia type Rectal bleed Disposition: ED Disposition Admit/Observation Bed request special needs: None Diagnosis?: renal failure, anemia, rectal bleed Follow-up Information None Discharge Medications: Current Discharge Medication List Procedures Additional Documentation Procedures Attending Note: Documentation assistance provided by Eduarda Cowart (Scribe). Information recorded by the scribe has been reviewed and validated by me. Piotr grajeda with its contents. DO Amandeep Mayes DO 10/26/15814 onversion Transactio n, Provider Unknown - 10/25/2015 1:18 PM PST ED Notes by Rosmery Dunn RN at 10/25/151317 Author: Rosmery Dunn RN Service: (none) Author Type: Registered Nurse Filed: 10/25/151317 Date of Service: 10/25/151317 Status: Signed [employer] Instructor: Rosmery Dunn RN (Registered Nurse) 2 patient identifiers checked, patient gowned, side rails up x1 or x2. ID band placed on p atient, call light instructed on and given to patient. Rosmery Dunn RN 10/25/151317 docume nted in this encounter Miscellaneous Notes Plan of Care - Conversion Transaction, Provider Unknown - 10/30/2015 10:48 PM PST Plan of Care by Stepan Verdin RN at 10/30/152247 Author: Stepan Verdin RN Service: (none) Author Type: Registered Nurse Filed: 10/30/152248 Date of Service: 10/30/152247 Status: Signed [employer] Instructor: Stepan Verdin RN (Registered Nurse) Problem: Pain Goal: Patient s pain/discomfort is manageable Assess and monitor patient s pain using appropriate pain scale. Collaborate with interdis ciplinary team and initiate plan and interventions as ordered. Re-assess patient s pain le adriana approximately 1-2 hours after pain management intervention. Premedicate as needed. Outcome: Progressing PRogressing Problem: Safety Goal: Patient will be injury free during hospitalization Assess and monitor vitals signs, neurological status including level of consciousness and o rientation. Assess patient s risk for falls and implement fall prevention plan of care and interventions per hospital policy. Ensure arm band on, uncluttered walking paths in room, adequate room lighting, call light a nd overbed table within reach, bed in low position, wheels locked, side rails up per policy, and non-skid footwear provided. Outcome: Progressing Progressing p Not Mundo Santiago MD - 10/28/2015 2:33 PM PST Op Note by Mundo Ramos MD at 10/28/15 5898 Author: Mundo Ramos MD Service: Vascular Surgery Author Type: Physician Filed: 10/28/15 1434 Date of Service: 10/28/156 Status: Signed [employer] Instructor: Mundo Ramos MD (Physician) [facility] Service: Vascular Surgery Operative Note Pre-operative Diagnosis: Acute renal failure Post-operative Diagnosis: Same Procedure(s): Laparoscopic peritoneal dialysis catheter placement Surgeon: Mundo Ramos MD Water Pollution Specialist(s): None Anesthesia: General endotrachial anesthesia Estimated Blood Loss: Less Than 10 ml (Minimal) Other: IV Fluids: 350 ml Indications: See pre-operative history and physical. Findings: Catheter placed into pouch of Omer. Good flush and aspiration from catheter. Complications: None apparent Description of Procedure: The patient was properly identified and brought to the operating room. The patient was placed supine on the operating table. The patient underwent general e ndotracheal anesthesia. The patient's abdomen was then prepped and draped in the usual steri le fashion. Local anesthetic was then given to the left upper abdomen and a stab incision wa s made. Using a 5 mm Optivue trocar, the peritoneal cavity was entered under direct visualiz ation. The abdomen was then insufflated with carbon dioxide to a pressure of 12 to 15 mmHg. The patient tolerated insufflation well. The abdomen was inspected and there was no injurie s from initial trocar placement. Next, a 5 mm trocar was then placed in the left lateral qu adrant. An incision was then made in the right paraumbilical region, and an 8 mm trocar was then inserting in a skiving fashion with entry into the peritoneal cavity above the bladder . A 57 cm peritoneal dialysis catheter was then inserted through the 8 mm trocar with the in ner cuff of the catheter just outside the peritoneal cavity. A grasper was then used to posi tion the tip of the catheter in the pouch of Omer. The 8 mm trocar was then removed. The peritoneal dialysis catheter was then tunneled laterally and brought out through a separate stab incision. The catheter was then filled with saline and withdrew easily. The catheter wa s then filled with concentrated heparin as indicated. The abdomen was then allowed to desuff late and the trocars were then removed under direct vision. The skin sites were then closed with 4-0 Monocryl in a subcuticular fashion and dermabond was placed on the incision sites. Sterile dressings were then placed around the peritoneal dialysis catheter. At the end of the case the sponge and instrument counts were correct x2. There were no apparent complicati ons. Condition: Stable Mundo Ramos MD 10/28/2015 documented in this encoun ter Plan of Treatment Not on filedocumented as [...] | + +--------+ + + + | FARIDEH, | Timed | 10/26/2015 | | Results [...] | + +--------+ + + + | CRYSTAL MORGAN REFLEX | Routin | 10/26/2015 | | Results [...] in this encounter Results External Lab: CBC (10/31/2015 4:01 AM PST) + + + + + + | Component | Value | Ref Range | Performed | Pathologist | | | | | At | Signature | + + + + + + | WBC | 8.97Comment: Testing | 3.80 - 11.00 | EXTERNAL | | | | performed at [facility], [address] | K/uL | LAB | | | | [address], | | | | | | [place] [address] | | | | + + + + + + | Red Blood | 2.89 (L)Comment: Testing | 3.70 - 5.10 | EXTERNAL | | | Cells | performed at [facility], [address] | M/uL | LAB | | | Counted | [address], | | | | | | [place] [address] | | | | + + + + + + | Hemoglobin | 7.9 (L)Comment: Testing | 11.3 - 15.5 | EXTERNAL | | | | performed at [facility], [address] | g/dL | LAB | | | | [address], | | | | | | [place] [address] | | | | + + + + + + | Hematocrit, | 24.2 (L)Comment: Testing | 34.0 - 46.0 % | EXTERNAL | | | POC | performed at [facility], [address] | | LAB | | | | [address], | | | | | | [place] [address] | | | | + + + + + + | MCV | 83.9Comment: Testing | 80.0 - 100.0 fl | EXTERNAL | | | | performed at [facility], [address] | | LAB | | | | [address], | | | | | | [place] [address] | | | | + + + + + + | MCH | 27.2Comment: Testing | 27.0 - 34.0 pg | EXTERNAL | | | | performed at [facility], [address] | | LAB | | | | [address], | | | | | | [place] [address] | | | | + + + + + + | MCHC | 32.5Comment: Testing | 32.0 - 35.5 | EXTERNAL | | | | performed at [facility], [address] | g/dL | LAB | | | | [address], | | | | | | [place] [address] | | | | + + + + + + | RDW-CV | 48.1Comment: Testing | 37 - 53 fl | EXTERNAL | | | | performed at [facility], [address] | | LAB | | | | [address], | | | | | | [place] [address] | | | | + + + + + + | Platelet | 226Comment: Testing | 150 - 400 K/uL | EXTERNAL | | | Count | performed at [facility], [address] | | LAB | | | Plasma | [address], | | | | | | [place] [address] | | | | + + + + + + | MPV | 9.3Comment: Testing | fl | EXTERNAL | | | | performed at [facility], [address] | | LAB | | | | [address], | | | | | | [place] [address] | | | | + + + + + + | Differentia | AUTOMATEDComment: | | EXTERNAL | | | l Type | Testing performed at | | LAB | | | | [facility], [address] | | | | | | [place] | | | | | | [address] | | | | + + + + + + | % Segmented | 67.15Comment: Testing | % | EXTERNAL | | | | performed at [facility], [address] | | LAB | | | Neutrophils | [address], | | | | | | [place] [address] | | | | + + + + + + | % | 8.38Comment: Testing | % | EXTERNAL | | | Lymphocytes | performed at [facility], [address] | | LAB | | | | [address], | | | | | | [place] [address] | | | | + + + + + + | % Monocytes | 5.32Comment: Testing | % | EXTERNAL | | | | performed at [facility], [address] | | LAB | | | | [address], | | | | | | [place] [address] | | | | + + + + + + | % | 18.83Comment: Testing | % | EXTERNAL | | | Eosinophils | performed at [facility], [address] | | LAB | | | | [address], | | | | | | [place] [address] | | | | + + + + + + | % Basophils | 0.32Comment: Testing | % | EXTERNAL | | | | performed at [facility], [address] | | LAB | | | | [address], | | | | | | [place] [address] | | | | + + + + + + | Absolute | 6.03Comment: Testing | 1.90 - 7.40 | EXTERNAL | | | Segmented | performed at [facility], [address] | K/uL | LAB | | | Neutrophils | [address], | | | | | | [place] [address] | | | | + + + + + + | Absolute | 0.75 (L)Comment: Testing | 1.00 - 3.90 | EXTERNAL | | | Lymphocytes | performed at [facility], [address] | K/uL | LAB | | | | [address], | | | | | | [place] [address] | | | | + + + + + + | Absolute | 0.48Comment: Testing | 0.00 - 0.80 | EXTERNAL | | | Monocytes | performed at [facility], [address] | K/uL | LAB | | | | [address], | | | | | | [place] [address] | | | | + + + + + + | Absolute | 1.69 (H)Comment: Testing | 0.00 - 0.50 | EXTERNAL | | | Eosinophils | performed at [facility], [address] | K/uL | LAB | | | | [address], | | | | | | [place] [address] | | | | + + + + + + | Absolute | 0.03Comment: Testing | 0.00 - 0.10 | EXTERNAL | | | Basophils | performed at [facility], [address] | K/uL | LAB | | | | [address], | | | | | | [place] [address] | | | | + + + [...] | | | | | [place] [address] | | | | + + + [...] | | | | | [place] [address] | | | | + + + + + + | K | 3.8Comment: Testing | 3.5 - 4.9 | EXTERNAL | | | | performed at [facility], [address] | mmol/L | LAB | | | | [address], | | | | | | [place] [address] | | | | + + + + + + | Cl | 98 (L)Comment: Testing | 99 - 109 mmol/L | EXTERNAL | | | | performed at [facility], [address] | | LAB | | | | [address], | | | | | | [place] [address] | | | | + + + + + + | CO2 | 23Comment: Testing | 23 - 32 mmol/L | EXTERNAL | | | | performed at [facility], [address] | | LAB | | | | [address], | | | | | | [place] [address] | | | | + + + + + + | Anion Gap | 19Comment: Testing | 5 - 20 mmol/L | EXTERNAL | | | | performed at [facility], [address] | | LAB | | | | [address], | | | | | | [place] [address] | | | | + + + + + + | Glucose, | 79Comment: Testing | 65 - 99 mg/dL | EXTERNAL | | | Fasting | performed at [facility], [address] | | LAB | | | | [address], | | | | | | [place] [address] | | | | + + + + + + | BUN | 97 (H)Comment: Testing | 8 - 25 mg/dL | EXTERNAL | | | | performed at [facility], [address] | | LAB | | | | [address], | | | | | | [place] [address] | | | | + + + + + + | Creatinine | 14.12 (H)Comment: | 0.50 - 1.00 | EXTERNAL | | | | Testing performed at | mg/dL | LAB | | | | [facility], [address] | | | | | | [place] | | | | | | [address] | | | | + + + + + + | Calcium | 7.2 (L)Comment: Testing | 8.5 - 10.5 | EXTERNAL | | | | performed at [facility], [address] | mg/dL | LAB | | | | [address], | | | | | | [place] [address] | | | | + + + + + + | Albumin | 2.9 (L)Comment: Testing | 3.6 - 5.0 g/dL | EXTERNAL | | | | performed at [facility], [address] | | LAB | | | | [address], | | | | | | [place] [address] | | | | + + + + + + | PHOSPHORUS | 8.6 (H)Comment: Testing | 2.3 - 4.8 mg/dL | EXTERNAL | | | | performed at [facility], [address] | | LAB | | | | [address], | | | | | | [place] [address] | | | | + + + [...] | | | | | | at [facility], [address] | | | | | | [address], | | | | | | [place] [address] | | | | + + + [...] at | | | [facility], [address] [place] [address] | | + + + + +---------+ [...] EXTERNAL LAB | | Testing performed at [facility];[place] [address] COLOR | | | COLORLESS Testing performed | | | at [facility];[address] [place], [place] [address]ft Bl;[place] [address] APPEARANCE | | | CLEAR Testing performed at [facility] | | | Blvd;[place] [address] RBC'S | | | <[phone] Testing performed at [facility];[address] [place] [address];[place], [place] | | | [address] TOTAL NUCLEATED CELLS 145 | | | Testing performed at [facility];[address] [place] [address];[place] [address] NEUTROPHILS | | | 16 Testing performed | | | at [facility];[address] [place], [place] [address]vd;[place] [address] LYMPHOCYTES | | | 4 Testing performed at [facility] | | | Blvd;[place] [address] MONOCYTES/MACROPHAGES 18 | | | Testing performed at [facility] [address];[place] [address] | | | EOSINOPHILS 62 | | | Testing performed at [facility];[address] [place] [address];[place] [address] CELLS | | | COUNTED 100 Testing | | | performed at [facility];[address] [place] [address];[place] [address] | | + + + + +---------+ [...] EXTERNAL LAB | | IS NOT A CUTTER OPERATOR BRICK VALIDATED SAMPLE TYPE FOR THIS METHOD. NO | | | REFERENCE RANGES HAVE BEEN ESTABLISHED. RESULT VERIFIED Testing | | | performed at [facility], [address] [place] [address] | | + + + + +---------+ [...] | EXTERNAL LAB | | NOT A CUTTER OPERATOR BRICK VALIDATED SAMPLE TYPE FOR THIS METHOD. NO | | | REFERENCE RANGES HAVE BEEN ESTABLISHED. 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 NO | | | REFERENCE RANGES HAVE BEEN ESTABLISHED. RESULT VERIFIED Testing | | | performed at [facility], [address] [place] [address] | | + + + + +---------+ [...] EXTERNAL | | | | performed at [facility], [address] | K[address]L | LAB | | | | [address], | | | | | | [place] [address] | | | | + + + + + + | Red Blood | 2.84 (L)Comment: Testing | 3.70 - 5.10 | EXTERNAL | | | Cells | performed at [facility], [address] | M/uL | LAB | | | Counted | [address], | | | | | | [place] [address] | | | | + + + + + + | Hemoglobin | 7.7 (L)Comment: Testing | 11.3 - 15.5 | EXTERNAL | | | | performed at [facility], [address] | g/dL | LAB | | | | [address], | | | | | | [place] [address] | | | | + + + + + + | Hematocrit, | 24.0 (L)Comment: Testing | 34.0 - 46.0 % | EXTERNAL | | | POC | performed at [facility], [address] | | LAB | | | | [address], | | | | | | [place] [address] | | | | + + + + + + | MCV | 84.3Comment: Testing | 80.0 - 100.0 fl | EXTERNAL | | | | performed at [facility], [address] | | LAB | | | | [address], | | | | | | [place] [address] | | | | + + + + + + | MCH | 26.9 (L)Comment: Testing | 27.0 - 34.0 pg | EXTERNAL | | | | performed at [facility], [address] | | LAB | | | | [address], | | | | | | [place] [address] | | | | + + + + + + | MCHC | 32.0Comment: Testing | 32.0 - 35.5 | EXTERNAL | | | | performed at [facility], [address] | g/dL | LAB | | | | [address], | | | | | | [place] [address] | | | | + + + + + + | RDW-CV | 45.9Comment: Testing | 37 - 53 fl | EXTERNAL | | | | performed at [facility], [address] | | LAB | | | | [address], | | | | | | [place] [address] | | | | + + + + + + | Platelet | 210Comment: Testing | 150 - 400 K/uL | EXTERNAL | | | Count | performed at [facility], [address] | | LAB | | | Plasma | [address], | | | | | | [place] [address] | | | | + + + + + + | MPV | 9.4Comment: Testing | fl | EXTERNAL | | | | performed at [facility], [address] | | LAB | | | | [address], | | | | | | [place] [address] | | | | + + + + + + | Differentia | AUTOMATEDComment: | | EXTERNAL | | | l Type | Testing performed at | | LAB | | | | [facility], [address] | | | | | | [place] | | | | | | [address] | | | | + + + + + + | % Segmented | 72.16Comment: Testing | % | EXTERNAL | | | | performed at [facility], [address] | | LAB | | | Neutrophils | [address], | | | | | | [place] [address] | | | | + + + + + + | % | 8.40Comment: Testing | % | EXTERNAL | | | Lymphocytes | performed at [facility], [address] | | LAB | | | | [address], | | | | | | [place] [address] | | | | + + + + + + | % Monocytes | 4.74Comment: Testing | % | EXTERNAL | | | | performed at [facility], [address] | | LAB | | | | [address], | | | | | | [place] [address] | | | | + + + + + + | % | 14.32Comment: Testing | % | EXTERNAL | | | Eosinophils | performed at [facility], [address] | | LAB | | | | [address], | | | | | | [place] [address] | | | | + + + + + + | % Basophils | 0.38Comment: Testing | % | EXTERNAL | | | | performed at [facility], [address] | | LAB | | | | [address], | | | | | | [place] [address] | | | | + + + + + + | Absolute | 7.58 (H)Comment: Testing | 1.90 - 7.40 | EXTERNAL | | | Segmented | performed at [facility], [address] | [address]/uL | LAB | | | Neutrophils | [address], | | | | | | [place] [address] | | | | + + + + + + | Absolute | 0.88 (L)Comment: Testing | 1.00 - 3.90 | EXTERNAL | | | Lymphocytes | performed at [facility], [address] | K/uL | LAB | | | | [address], | | | | | | [place] [address] | | | | + + + + + + | Absolute | 0.50Comment: Testing | 0.00 - 0.80 | EXTERNAL | | | Monocytes | performed at [facility], [address] | K/uL | LAB | | | [address], | | | | | | [place] [address] | | | | + + + + + + | Absolute | 1.51 (H)Comment: Testing | 0.00 - 0.50 | EXTERNAL | | | Eosinophils | performed at [facility], [address] | [address] | LAB | | | | [address], | | | | | | [place] [address] | | | | + + + + + + | Absolute | 0.04Comment: Testing | 0.00 - 0.10 | EXTERNAL | | | Basophils | performed at [facility], [address] | K/uL | LAB | | | | [address], | | | | | | [place] [address] | | | | + + + [...] EXTERNAL | | | | performed at [facility], [address] | | LAB | | | | [address], | | | | | | [place] [address] | | | | + + + [...] | | | | | [place] [address] | | | | + + + + + + | K | 3.7Comment: Testing | 3.5 - 4.9 | EXTERNAL | | | | performed at [facility], [address] | mmol/L | LAB | | | | [address], | | | | | | [place] [address] | | | | + + + + + + | Cl | 99Comment: Testing | 99 - 109 mmol/L | EXTERNAL | | | | performed at [facility], [address] | | LAB | | | | [address], | | | | | | [place] [address] | | | | + + + + + + | CO2 | 24Comment: Testing | 23 - 32 mmol/L | EXTERNAL | | | | performed at [facility], [address] | | LAB | | | | [address], | | | | | | [place] [address] | | | | + + + + + + | Anion Gap | 20Comment: Testing | 5 - 20 mmol/L | EXTERNAL | | | | performed at [facility], [address] | | LAB | | | | [address], | | | | | | [place] [address] | | | | + + + + + + | Glucose, | 84Comment: Testing | 65 - 99 mg/dL | EXTERNAL | | | Fasting | performed at [facility], [address] | | LAB | | | | [address], | | | | | | [place] [address] | | | | + + + + + + | BUN | 104 (H)Comment: Testing | 8 - 25 mg/dL | EXTERNAL | | | | performed at [facility], [address] | | LAB | | | | [address], | | | | | | [place] [address] | | | | + + + + + + | Creatinine | 14.91 (H)Comment: | 0.50 - 1.00 | EXTERNAL | | | | Testing performed at | mg/dL | LAB | | | | [facility], [address] | | | | | | [place] | | | | | | [address] | | | | + + + + + + | Calcium | 6.5 (L)Comment: Testing | 8.5 - 10.5 | EXTERNAL | | | | performed at [facility], [address] | mg/dL | LAB | | | | [address], | | | | | | [place] [address] | | | | + + + + + + | Albumin | 2.9 (L)Comment: Testing | 3.6 - 5.0 g/dL | EXTERNAL | | | | performed at [facility], [address] | | LAB | | | | [address], | | | | | | [place] [address] | | | | + + + + + + | PHOSPHORUS | 9.4 ()Comment: RESULT | 2.3 - 4.8 mg/dL | EXTERNAL | | | | READ BACK BY: AMARILIS Baca | | LAB | | | | MARY 5:25 10/30/15 | | | | | | DHTesting performed at | | | | | | [facility], [address] | | | | | | [place] | | | | | | [address] | | | | + + + [...] | | | | | | at [facility], [address] | | | | | | [address], | | | | | | [place] [address] | | | | + + + [...] At | + + + | RAMONA TREVOR REEVES XR CHEST 2 VIEW FRONTAL AND [...] + + | Endy, Migue Conversion - 06/25/2019 11:42 AM PDT RAMONA REEVES CHEST 2 VIEW | | FRONTAL AND [...] | | | | | | at [facility], [address] | | | | | | [address], | | | | | | [place] [address] | | | | + + + [...] | LAB | | | | [address], | | | | | | [place] [address] | | | | + + + + + + | Red Blood | 2.60 (L)Comment: Testing | 3.70 - 5.10 | EXTERNAL | | | Cells | performed at [facility], [address] | [address]/uL | LAB | | | Counted | [address], | | | | | | [place] [address] | | | | + + + + + + | Hemoglobin | 7.1 (L)Comment: Testing | 11.3 - 15.5 | EXTERNAL | | | | performed at [facility], [address] | g/dL | LAB | | | | [address], | | | | | | [place] [address] | | | | + + + + + + | Hematocrit, | 21.6 (L)Comment: Testing | 34.0 - 46.0 % | EXTERNAL | | | POC | performed at [facility], [address] | | LAB | | | | [address], | | | | | | [place] [address] | | | | + + + + + + | MCV | 82.9Comment: Testing | 80.0 - 100.0 fl | EXTERNAL | | | | performed at [facility], [address] | | LAB | | | | [address], | | | | | | [place] [address] | | | | + + + + + + | MCH | 27.2Comment: Testing | 27.0 - 34.0 pg | EXTERNAL | | | | performed at [facility], [address] | | LAB | | | | [address], | | | | | | [place] [address] | | | | + + + + + + | MCHC | 32.8Comment: Testing | 32.0 - 35.5 | EXTERNAL | | | | performed at [facility], [address] | g/dL | LAB | | | | [address], | | | | | | [place] [address] | | | | + + + + + + | RDW-CV | 46.8Comment: Testing | 37 - 53 fl | EXTERNAL | | | | performed at [facility], [address] | | LAB | | | | [address], | | | | | | [place] [address] | | | | + + + + + + | Platelet | 179Comment: Testing | 150 - 400 K/uL | EXTERNAL | | | Count | performed at [facility], [address] | | LAB | | | Plasma | [address], | | | | | | [place] [address] | | | | + + + + + + | MPV | 9.8Comment: Testing | fl | EXTERNAL | | | | performed at [facility], [address] | | LAB | | | | [address], | | | | | | [place] [address] | | | | + + + + + + | Differentia | MANUALComment: Testing | | EXTERNAL | | | l Type | performed at [facility], [address] | | LAB | | | | [address], | | | | | | [place] [address] | | | | + + + + + + | Segmented | 87Comment: Testing | % | EXTERNAL | | | Neutrophils | performed at [facility], [address] | | LAB | | | Manual | [address], | | | | | | [place] [address] | | | | + + + + + + | Lymphocytes | 6Comment: Testing | % | EXTERNAL | | | Manual | performed at [facility], [address] | | LAB | | | | [address], | | | | | | [place] [address] | | | | + + + + + + | Monocytes | 5Comment: Testing | % | EXTERNAL | | | Manual | performed at [facility], [address] | | LAB | | | | [address], | | | | | | [place] [address] | | | | + + + + + + | Eosinophils | 2Comment: Testing | % | EXTERNAL | | | Manual | performed at [facility], [address] | | LAB | | | | [address], | | | | | | [place] [address] | | | | + + + + + + | Absolute | 6.87Comment: Testing | 1.90 - 7.40 | EXTERNAL | | | Neutrophils | performed at [facility], [address] | K/uL | LAB | | | | [address], | | | | | | [place] [address] | | | | + + + + + + | Absolute | 0.47 (L)Comment: Testing | 1.00 - 3.90 | EXTERNAL | | | Lymphocytes | performed at [facility], [address] | [address] | LAB | | | | [address], | | | | | | [place] [address] | | | | + + + + + + | Absolute | 0.39Comment: Testing | 0.00 - 0.80 | EXTERNAL | | | Monocytes | performed at [facility], [address] | K/uL | LAB | | | | [address], | | | | | | [place] [address] | | | | + + + + + + | Absolute | 0.16Comment: Testing | 0.00 - 0.50 | EXTERNAL | | | Eosinophils | performed at [facility], [address] | K[address] | LAB | | | | [address], | | | | | | [place] [address] | | | | + + + + + + | RBC | RBC AND PLT MORPHOLOGY | | EXTERNAL | | | Morphology | APPEAR NORMALComment: | | LAB | | | | Testing performed at | | | | | | [facility], [address] | | | | | | [place] | | | | | | [address] | | | | + + + [...] EXTERNAL | | | | performed at [facility], [address] | | LAB | | | | [address], | | | | | | [place] [address] | | | | + + + [...] | | | | | [place] [address] | | | | + + + + + + | K | 4.1Comment: Testing | 3.5 - 4.9 | EXTERNAL | | | | performed at [facility], [address] | mmol/L | LAB | | | | [address], | | | | | | [place] [address] | | | | + + + + + + | Cl | 99Comment: Testing | 99 - 109 mmol/L | EXTERNAL | | | | performed at [facility], [address] | | LAB | | | | [address], | | | | | | [place] [address] | | | | + + + + + + | CO2 | 23Comment: Testing | 23 - 32 mmol/L | EXTERNAL | | | | performed at [facility], [address] | | LAB | | | | [address], | | | | | | [place] [address] | | | | + + + + + + | Anion Gap | 20Comment: Testing | 5 - 20 mmol/L | EXTERNAL | | | | performed at [facility], [address] | | LAB | | | | [address], | | | | | | [place] [address] | | | | + + + + + + | Glucose, | 102 (H)Comment: Testing | 65 - 99 mg/dL | EXTERNAL | | | Fasting | performed at [facility], [address] | | LAB | | | | [address], | | | | | | [place] [address] | | | | + + + + + + | BUN | 106 (H)Comment: Testing | 8 - 25 mg/dL | EXTERNAL | | | | performed at [facility], [address] | | LAB | | | | [address], | | | | | | [place] [address] | | | | + + + + + + | Creatinine | 15.51 (H)Comment: | 0.50 - 1.00 | EXTERNAL | | | | Testing performed at | mg/dL | LAB | | | | [facility], [address] | | | | | | [place] | | | | | | [address] | | | | + + + + + + | Calcium | 6.9 (L)Comment: Testing | 8.5 - 10.5 | EXTERNAL | | | | performed at [facility], [address] | mg/dL | LAB | | | | [address], | | | | | | [place] [address] | | | | + + + + + + | Albumin | 3.0 (L)Comment: Testing | 3.6 - 5.0 g/dL | EXTERNAL | | | | performed at [facility], [address] | | LAB | | | | [address], | | | | | | [place] [address] | | | | + + + + + + | PHOSPHORUS | 9.9 (HH)Comment: RESULT | 2.3 - 4.8 mg/dL | EXTERNAL | | | | READ BACK BY:CHRISTINA | | LAB | | | | P/RN/OCT 29, | | | | | | :20C/CMSTesting | | | | | | performed at [facility], [address] | | | | | | [address], | | | | | | [place] [address] | | | | + + + [...] | | | | | | at [facility], [address] | | | | | | [address], | | | | | | [place] [address] | | | | + + + [...] | | | | | [place] [address] | | | | + + + + + + | Red Blood | 2.72 (L)Comment: Testing | 3.70 - 5.10 | EXTERNAL | | | Cells | performed at [facility], [address] | M/uL | LAB | | | Counted | [address], | | | | | | [place] [address] | | | | + + + + + + | Hemoglobin | 7.3 (L)Comment: Testing | 11.3 - 15.5 | EXTERNAL | | | | performed at [facility], [address] | g/dL | LAB | | | | [address], | | | | | | [place] [address] | | | | + + + + + + | Hematocrit, | 22.9 (L)Comment: Testing | 34.0 - 46.0 % | EXTERNAL | | | POC | performed at [facility], [address] | | LAB | | | | [address], | | | | | | [place] [address] | | | | + + + + + + | MCV | 84.4Comment: Testing | 80.0 - 100.0 fl | EXTERNAL | | | | performed at [facility], [address] | | LAB | | | | [address], | | | | | | [place] [address] | | | | + + + + + + | MCH | 27.1Comment: Testing | 27.0 - 34.0 pg | EXTERNAL | | | | performed at [facility], [address] | | LAB | | | | [address], | | | | | | [place] [address] | | | | + + + + + + | MCHC | 32.0Comment: Testing | 32.0 - 35.5 | EXTERNAL | | | | performed at [facility], [address] | g/dL | LAB | | | | [address], | | | | | | [place], [place] [address] | | | | + + + + + + | RDW-CV | 46.4Comment: Testing | 37 - 53 fl | EXTERNAL | | | | performed at [facility], [address] | | LAB | | | | [address], | | | | | | [place], [place] [address] | | | | + + + + + + | Platelet | 185Comment: Testing | 150 - 400 K/uL | EXTERNAL | | | Count | performed at [facility], [address] | | LAB | | | Plasma | [address], | | | | | | [place] [address] | | | | + + + + + + | MPV | 9.4Comment: Testing | fl | EXTERNAL | | | | performed at [facility], [address] | | LAB | | | | [address], | | | | | | [place] [address] | | | | + + + + + + | Differentia | AUTOMATEDComment: | | EXTERNAL | | | l Type | Testing performed at | | LAB | | | | [facility], [address] | | | | | | [place] | | | | | | [address] | | | | + + + + + + | % Segmented | 74.34Comment: Testing | % | EXTERNAL | | | | performed at [facility], [address] | | LAB | | | Neutrophils | [address], | | | | | | [place] [address] | | | | + + + + + + | % | 6.52Comment: Testing | % | EXTERNAL | | | Lymphocytes | performed at [facility], [address] | | LAB | | | | [address], | | | | | | [place] [address] | | | | + + + + + + | % Monocytes | 4.80Comment: Testing | % | EXTERNAL | | | | performed at [facility], [address] | | LAB | | | | [address], | | | | | | [place] [address] | | | | + + + + + + | % | 13.94Comment: Testing | % | EXTERNAL | | | Eosinophils | performed at [facility], [address] | | LAB | | | | [address], | | | | | | [place] [address] | | | | + + + + + + | % Basophils | 0.40Comment: Testing | % | EXTERNAL | | | | performed at [facility], [address] | | LAB | | | | [address], | | | | | | [place] [address] | | | | + + + + + + | Absolute | 6.67Comment: Testing | 1.90 - 7.40 | EXTERNAL | | | Segmented | performed at [facility], [address] | K/uL | LAB | | | Neutrophils | [address], | | | | | | [place] [address] | | | | + + + + + + | Absolute | 0.59 (L)Comment: Testing | 1.00 - 3.90 | EXTERNAL | | | Lymphocytes | performed at [facility], [address] | K/uL | LAB | | | | [address], | | | | | | [place] [address] | | | | + + + + + + | Absolute | 0.43Comment: Testing | 0.00 - 0.80 | EXTERNAL | | | Monocytes | performed at [facility], [address] | K/uL | LAB | | | | [address], | | | | | | [place] [address] | | | | + + + + + + | Absolute | 1.25 (H)Comment: Testing | 0.00 - 0.50 | EXTERNAL | | | Eosinophils | performed at [facility], [address] | K/uL | LAB | | | | [address], | | | | | | [place] [address] | | | | + + + + + + | Absolute | 0.04Comment: Testing | 0.00 - 0.10 | EXTERNAL | | | Basophils | performed at [facility], [address] | K/uL | LAB | | | | [address], | | | | | | [place] [address] | | | | + + + [...] EXTERNAL | | | | performed at [facility], [address] | | LAB | | | | [address], | | | | | | [place] [address] | | | | + + + [...] | | | | | [place] [address] | | | | + + + + + + | K | 4.0Comment: Testing | 3.5 - 4.9 | EXTERNAL | | | | performed at [facility], [address] | mmol/L | LAB | | | | [address], | | | | | | [place] [address] | | | | + + + + + + | Cl | 102Comment: Testing | 99 - 109 mmol/L | EXTERNAL | | | | performed at [facility], [address] | | LAB | | | | [address], | | | | | | [place] [address] | | | | + + + + + + | CO2 | 20 (L)Comment: Testing | 23 - 32 mmol/L | EXTERNAL | | | | performed at [facility], [address] | | LAB | | | | [address], | | | | | | [place] [address] | | | | + + + + + + | Anion Gap | 22 (H)Comment: Testing | 5 - 20 mmol/L | EXTERNAL | | | | performed at [facility], [address] | | LAB | | | | [address], | | | | | | [place] [address] | | | | + + + + + + | Glucose, | 95Comment: Testing | 65 - 99 mg/dL | EXTERNAL | | | Fasting | performed at [facility], [address] | | LAB | | | | [address], | | | | | | [place] [address] | | | | + + + + + + | BUN | 104 (H)Comment: Testing | 8 - 25 mg/dL | EXTERNAL | | | | performed at [facility], [address] | | LAB | | | | [address], | | | | | | [place] [address] | | | | + + + + + + | Creatinine | 15.79 (H)Comment: | 0.50 - 1.00 | EXTERNAL | | | | Testing performed at | mg/dL | LAB | | | | [facility], [address] | | | | | | [place] | | | | | | [address] | | | | + + + + + + | Calcium | 6.4 (L)Comment: Testing | 8.5 - 10.5 | EXTERNAL | | | | performed at [facility], [address] | mg/dL | LAB | | | | [address], | | | | | | [place] [address] | | | | + + + + + + | Albumin | 3.0 (L)Comment: Testing | 3.6 - 5.0 g/dL | EXTERNAL | | | | performed at [facility], [address] | | LAB | | | | [address], | | | | | | [place] [address] | | | | + + + + + + | PHOSPHORUS | 10.5 (HH)Comment: RESULT | 2.3 - 4.8 mg/dL | EXTERNAL | | | | READ BACK BY:JIA | | LAB | | | | L/MICHELLE/LIATOCT 28, | | | | | | :22[facility] | | [facility] | performed at [facility], [address] | | | | | | [address], | | | | | | [place] [address] | | | | + + + [...] | | | | | | at [facility], [address] | | | | | | [address] [facility], | | | | | | [place] [address] | | | | + + + [...] | | | B-12 | performed at [facility], [address] | pg/mL | LAB | | | | [address], | | | | | | [place] [address] | | | | + + + + + + | Folate | 4.0 (L)Comment: Testing | ng/mL | EXTERNAL | | | | performed at [facility], [address] | | LAB | | | | [address], | | | | | | [place] [address] | | | | + + + [...] | | | | | [place] [address] | | | | + + + [...] | | | | | [place] [address] | | | | + + + + + + | TIBC | 212 (L)Comment: Testing | 260 - 490 ug/dL | EXTERNAL | | | | performed at [facility], [address] | | LAB | | | | [address], | | | | | | [place] [address] | | | | + + + + + + | Iron | 12 (L)Comment: Testing | 15 - 50 % | EXTERNAL | | | Saturation | performed at [facility], [address] | | LAB | | | | [address], | | | | | | [place] [address] | | | | + [...] + +---------+ + + External Lab: CBC (10/27/2015 5:46 AM PST) + + + + + + | Component | Value | Ref Range | Performed | Pathologist | | | | | At | Signature | + + + + + + | WBC | 8.63Comment: Testing | 3.80 - 11.00 | EXTERNAL | | | | performed at [facility], [address] | K/uL | LAB | | | | [address], | | | | | | [place] [address] | | | | + + + + + + | Red Blood | 3.00 (L)Comment: Testing | 3.70 - 5.10 | EXTERNAL | | | Cells | performed at [facility], [address] | M/uL | LAB | | | Counted | [address], | | | | | | [place] [address] | | | | + + + + + + | Hemoglobin | 8.1 (L)Comment: Testing | 11.3 - 15.5 | EXTERNAL | | | | performed at [facility], [address] | g/dL | LAB | | | | [address], | | | | | | [place] [address] | | | | + + + + + + | Hematocrit, | 25.5 (L)Comment: Testing | 34.0 - 46.0 % | EXTERNAL | | | POC | performed at [facility], [address] | | LAB | | | | [address], | | | | | | [place] [address] | | | | + + + + + + | MCV | 85.0Comment: Testing | 80.0 - 100.0 fl | EXTERNAL | | | | performed at [facility], [address] | | LAB | | | | [address], | | | | | | [place] [address] | | | | + + + + + + | MCH | 27.2Comment: Testing | 27.0 - 34.0 pg | EXTERNAL | | | | performed at [facility], [address] | | LAB | | | | [address], | | | | | | [place] [address] | | | | + + + + + + | MCHC | 31.9 (L)Comment: Testing | 32.0 - 35.5 | EXTERNAL | | | | performed at [facility], [address] | g/dL | LAB | | | | [address], | | | | | | [place] [address] | | | | + + + + + + | RDW-CV | 48.1Comment: Testing | 37 - 53 fl | EXTERNAL | | | | performed at [facility], [address] | | LAB | | | | [address], | | | | | | [place] [address] | | | | + + + + + + | Platelet | 195Comment: Testing | 150 - 400 K/uL | EXTERNAL | | | Count | performed at [facility], [address] | | LAB | | | Plasma | [address], | | | | | | [place] [address] | | | | + + + + + + | MPV | 9.5Comment: Testing | fl | EXTERNAL | | | | performed at [facility], [address] | | LAB | | | | [address], | | | | | | [place] [address] | | | | + + + + + + | Differentia | AUTOMATEDComment: | | EXTERNAL | | | l Type | Testing performed at | | LAB | | | | [facility], [address] | | | | | | [place] | | | | | | [address] | | | | + + + + + + | % Segmented | 76.55Comment: Testing | % | EXTERNAL | | | | performed at [facility], [address] | | LAB | | | Neutrophils | [address], | | | | | | [place] [address] | | | | + + + + + + | % | 8.35Comment: Testing | % | EXTERNAL | | | Lymphocytes | performed at [facility], [address] | | LAB | | | | [address], | | | | | | [place] [address] | | | | + + + + + + | % Monocytes | 4.66Comment: Testing | % | EXTERNAL | | | | performed at [facility], [address] | | LAB | | | | [address], | | | | | | [place] [address] | | | | + + + + + + | % | 9.83Comment: Testing | % | EXTERNAL | | | Eosinophils | performed at [facility], [address] | | LAB | | | | [address], | | | | | | [place] [address] | | | | + + + + + + | % Basophils | 0.61Comment: Testing | % | EXTERNAL | | | | performed at [facility], [address] | | LAB | | | | [address], | | | | | | [place] [address] | | | | + + + + + + | Absolute | 6.60Comment: Testing | 1.90 - 7.40 | EXTERNAL | | | Segmented | performed at [facility], [address] | K/uL | LAB | | | Neutrophils | [address], | | | | | | [place] [address] | | | | + + + + + + | Absolute | 0.72 (L)Comment: Testing | 1.00 - 3.90 | EXTERNAL | | | Lymphocytes | performed at [facility], [address] | K/uL | LAB | | | | [address], | | | | | | [place] [address] | | | | + + + + + + | Absolute | 0.40Comment: Testing | 0.00 - 0.80 | EXTERNAL | | | Monocytes | performed at [facility], [address] | K/uL | LAB | | | | [address], | | | | | | [place] [address] | | | | + + + + + + | Absolute | 0.85 (H)Comment: Testing | 0.00 - 0.50 | EXTERNAL | | | Eosinophils | performed at [facility], [address] | K/uL | LAB | | | | [address], | | | | | | [place] [address] | | | | + + + + + + | Absolute | 0.05Comment: Testing | 0.00 - 0.10 | EXTERNAL | | | Basophils | performed at [facility], [address] | K/uL | LAB | | | | [address], | | | | | | [place] [address] | | | | + + + [...] | | | | | [place] [address] | | | | + + + [...] | | | External | performed at [facility], [address] | | LAB | | | | [address], | | | | | | [place] [address] | | | | + + + [...] | | | (Calc) | performed at [facility];[address] | mmol/L | LAB | | | | [address];[place] | | | | | | [address] | | | | + + + + + + | pH, Bld | 7.338Comment: Testing | 7.300 - 7.450 | EXTERNAL | | | | performed at [facility];[address] | | LAB | | | | [address];[place] | | | | | | [address] | | | | + + + [...] | | | | | [place] [address] | | | | + + + + + + | K | 4.8Comment: Testing | 3.5 - 4.9 | EXTERNAL | | | | performed at [facility], [address] | mmol/L | LAB | | | | [address], | | | | | | [place] [address] | | | | + + + + + + | Cl | 106Comment: Testing | 99 - 109 mmol/L | EXTERNAL | | | | performed at [facility], [address] | | LAB | | | | [address], | | | | | | [place] [address] | | | | + + + + + + | CO2 | 15 (L)Comment: Testing | 23 - 32 mmol/L | EXTERNAL | | | | performed at [facility], [address] | | LAB | | | | [address], | | | | | | [place], [place] [address] | | | | + + + + + + | Anion Gap | 23 (H)Comment: Testing | 5 - 20 mmol/L | EXTERNAL | | | | performed at [facility], [address] | | LAB | | | | [address], | | | | | | [place] [address] | | | | + + + + + + | Glucose, | 87Comment: Testing | 65 - 99 mg/dL | EXTERNAL | | | Fasting | performed at [facility], [address] | | LAB | | | | [address], | | | | | | [place] [address] | | | | + + + + + + | BUN | 109 (H)Comment: Testing | 8 - 25 mg/dL | EXTERNAL | | | | performed at [facility], [address] | | LAB | | | | [address], | | | | | | [place] [address] | | | | + + + + + + | Creatinine | 14.69 (H)Comment: | 0.50 - 1.00 | EXTERNAL | | | | Testing performed at | mg/dL | LAB | | | | [facility], [address] | | | | | | [place] | | | | | | [address] | | | | + + + + + + | Calcium | 6.6 (L)Comment: Testing | 8.5 - 10.5 | EXTERNAL | | | | performed at [facility], [address] | mg/dL | LAB | | | | [address], | | | | | | [place] [address] | | | | + + + + + + | Albumin | 3.2 (L)Comment: Testing | 3.6 - 5.0 g/dL | EXTERNAL | | | | performed at [facility], [address] | | LAB | | | | [address], | | | | | | [place] [address] | | | | + + + + + + | PHOSPHORUS | 10.6 (HH)Comment: RESULT | 2.3 - 4.8 mg/dL | EXTERNAL | | | | READ BACK BY: CHRISTINA | | LAB | | | | P @ MARY 7:20 10/27/15 | | | | | | DHTesting performed at | | | | | | [facility], [address] [facility] | | | | | | [place] | | | | | | [address] | | | | + + + [...] | | | | | | at [facility], [address] | | | | | | [facility] [address], | | | | | | [place] [address] | | | | + + + [...] | | | | | [place] [address] | | | | + + + + + + | RBC, UA | 50-100Comment: Testing | 0 - 5 /hpf | EXTERNAL | | | | performed at [facility], [address] | | LAB | | | | [address], | | | | | | [place] [address] | | | | + + + + + + | Epithelial | 6-10Comment: Testing | /lpf | EXTERNAL | | | Cells | performed at [facility], [address] | | LAB | | | | [address], | | | | | | [place] [address] | | | | + + + + + + | Bacteria, | 2+ (A)Comment: Testing | | EXTERNAL | | | UA | performed at [facility], [address] | | LAB | | | | [address], | | | | | | [place] [address] | | | | + + + [...] EXTERNAL | | | | performed at [facility], [address] | | LAB | | | | [address], | | | | | | [place] [address] | | | | + + + + + + | Clarity | CLOUDYComment: Testing | | EXTERNAL | | | | performed at [facility], [address] | | LAB | | | | [address], | | | | | | [place] [address] | | | | + + + + + + | Specific | 1.012Comment: Testing | 1.002 - 1.030 | EXTERNAL | | | [place], | performed at [facility], [address] | | LAB | | | Urine | [address], | | | | | | [place] [address] | | | | + + + + + + | Leukocyte | SMALL (A)Comment: | | EXTERNAL | | | Esterase, | Testing performed at | | LAB | | | Urine | [facility], [address] | | | | | | [place] | | | | | | [address] | | | | + + + + + + | Nitrite, | NEGATIVEComment: Testing | | EXTERNAL | | | Urine | performed at [facility], [address] | | LAB | | | | [address], | | | | | | [place] [address] | | | | + + + + + + | Urobilinoge | 0.2Comment: Testing | mg/dL | EXTERNAL | | | n, Urine | performed at [facility], [address] | | LAB | | | | [address], | | | | | | [place] [address] | | | | + + + + + + | Protein, | 300 (A)Comment: Testing | mg/dL | EXTERNAL | | | Urine | performed at [facility], [address] | | LAB | | | | [address], | | | | | | [place] [address] | | | | + + + + + + | pH, Urine | 5.5Comment: Testing | 5.0 - 8.0 | EXTERNAL | | | | performed at [facility], [address] | | LAB | | | | [address], | | | | | | [place] [address] | | | | + + + + + + | Blood, | LARGE (A)Comment: | | EXTERNAL | | | Urine | Testing performed at | | LAB | | | | [facility], [address] | | | | | | [place] | | | | | | [address] | | | | + + + + + + | Ketones | NEGATIVEComment: Testing | mg/dL | EXTERNAL | | | | performed at [facility], [address] | | LAB | | | | [address], | | | | | | [place] [address] | | | | + + + + + + | Bilirubin, | NEGATIVEComment: Testing | | EXTERNAL | | | Urine | performed at [facility], [address] | | LAB | | | | [address], | | | | | | [place] [address] | | | | + + + + + + | Glucose, | NEGATIVEComment: Testing | mg/dL | EXTERNAL | | | Urine | performed at [facility], [facility] | | LAB | | | | [address], | | | | | | [place] [address] | | | | + + + [...] EXTERNAL | | | | performed at [facility];888 | g/dL | LAB | | | | [address];[place] | | | | | | [address] | | | | + + + + + + | Hematocrit, | 25.1 (L)Comment: Testing | 34.0 - 46.0 % | EXTERNAL | | | POC | performed at [facility];[address] | | LAB | | | | [address];[place] | | | | | | [address] | | | | + + + [...] EXTERNAL | | | | performed at [facility];888 | mmol/L | LAB | | | | [address];[place] | | | | | | [address] | | | | + + + + + + | K | 4.5Comment: Testing | 3.5 - 4.9 | EXTERNAL | | | | performed at [facility];888 | mmol/L | LAB | | | | [address];[place] | | | | | | [address] | | | | + + + + + + | Cl | 111 (H)Comment: Testing | 99 - 109 mmol/L | EXTERNAL | | | | performed at [facility];[address] | | LAB | | | | [address];[place] | | | | | | [address] | | | | + + + + + + | CO2 | 14 (LL)Comment: RESULT | 23 - 32 mmol/L | EXTERNAL | | | | READ BACK BY:MICHELLE AGGE | | LAB | | | | T[facility] [place] 308692 | | | | | | @1905 NSTesting | | | | | | performed at [facility];[address] | | | | | | [address];[place] | | | | | | [address] | | | | + + + + + + | Anion Gap | 21 (H)Comment: Testing | 5 - 20 mmol/L | EXTERNAL | | | | performed at [facility];[address] | | LAB | | | | [address];[place] | | | | | | [address] | | | | + + + + + + | Glucose, | 96Comment: Testing | 65 - 99 mg/dL | EXTERNAL | | | Fasting | performed at [facility];[address] | | LAB | | | | [address];[place] | | | | | | [address] | | | | + + + + + + | BUN | 104 (H)Comment: Testing | 8 - 25 mg/dL | EXTERNAL | | | | performed at [facility];[address] | | LAB | | | | [address];[place] | | | | | | [address] | | | | + + + + + + | Creatinine | 16 (H)Comment: Testing | 0.50 - 1.00 | EXTERNAL | | | | performed at [facility];888 | mg/dL | LAB | | | | [address];[place] | | | | | | [address] | | | | + + + + + + | BUN/Creatin | 7Comment: Testing | | EXTERNAL | | | ine Ratio | performed at [facility];[address] | | LAB | | | | [address];[place] | | | | | | [address] | | | | + + + + + + | Calcium | 6.0 (L)Comment: Testing | 8.5 - 10.5 | EXTERNAL | | | | performed at [facility];888 | mg/dL | LAB | | | | [address];[place] | | | | | | [address] | | | | + + + [...] | | | | | | at [facility];[address] [place] [address] | | | | | | [facility];[place] [address] | | | | + + + [...] EXTERNAL | | | | performed at [facility], [address] | g/dL | LAB | | | | [address], | | | | | | [place] [address] | | | | + + + + + + | Hematocrit, | 25.3 (L)Comment: Testing | 34.0 - 46.0 % | EXTERNAL | | | POC | performed at [facility], [address] | | LAB | | | | [address], | | | | | | [place] [address] | | | | + + + + + + + + | Specimen | + + | | + + + +---------+ + + | Performing | Address | City/State/Zipcode | Phone Number | | Organization | | | | + +---------+ + + | EXTERNAL LAB | | | | + +---------+ + + Kalina Scott (10/26/2015 3:56 PM PST) + + | Specimen | + + | | + + + + + | Narrative | Performed At | + + + | Specimen Description SKIN SCABIES | EXTERNAL LAB | | SCRAPING NO SCABIES SEEN | | | Testing performed at [facility], [address] | | | [place] [address] | | + + + + +---------+ [...] Patient | | | positioning: Prone. 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 Female. Hematuria and severe acute kidney | | injury. COMPARISON:Renal ultrasound 10/25/2015.. DESCRIPTION OF PROCEDURE:Prior to | | beginning the procedure, I obtained written informed consent. 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 | | | Testing performed at [facility], [address] [place], [place] | | | [address] | | + + + + +---------+ [...] | | | Patient | performed at [facility];[address] | | LAB | | | | [address];[place], [place] | | | | | | [address] | | | | + + + [...] | | | | | performed at [facility] | | | | | | [facility];[place], [place] | | | | | | [address] | | | | + + + [...] | | | Count | performed at [facility];[address] | | LAB | | | Plasma | [address] [facility];[place], [place] | | | | | | [address] | | | | + + + [...] | | | | | | at [facility], [address] | | | | | | [place] | | | | | | [address] | | | | + + + [...] + + + + + | Ig Norridge | 29.00 (H)Comment: | 0.33 - 1.94 | EXTERNAL | | | Free Light | Testing performed at | mg/dL | LAB | | | Chain | [facility], [address] | | | | | | [place] | | | | | | [address] | | | | + + + + + + | kaplamflc | 18.70 (H)Comment: | 0.57 - 2.63 | EXTERNAL | | | | Testing performed at | mg/dL | LAB | | | | [facility], [address] | | | | | | [place] | | | | | | [address] | | | | + + + + + + | Norridge/Lambd | 1.55Comment: Testing | 0.26 - 1.65 | EXTERNAL | | | a Free | performed at [facility], [address] | | LAB | | | Light Chain | [place] | | | | | Ratio | [place] [address] | | | | + + + + + + | Protein, | 6.1 (L)Comment: Testing | 6.2 - 8.2 g/dL | EXTERNAL | | | Total | performed at [facility], [address] | | LAB | | | | [place] | | | | | | [place] [address] | | | | + + + + + + | ELP Albumin | 2.7 (L)Comment: Testing | 3.5 - 5.0 g/dL | EXTERNAL | | | % | performed at [facility], [address] | | LAB | | | | [place] | | | | | | [place] [address] | | | | + + + + + + | ALPHA 1, BF | 0.4Comment: Testing | 0.1 - 0.4 g/dL | EXTERNAL | | | | performed at [facility], [address] | | LAB | | | | [address], [place] | | | | | | [place] [address] | | | | + + + + + + | ALPHA 2 | 0.9Comment: Testing | 0.5 - 1.1 g/dL | EXTERNAL | | | GLOBULIN | performed at [facility], [address] | | LAB | | | | [address], [place] | | | | | | [place] [address] | | | | + + + + + + | Beta-1 | 0.4Comment: Testing | 0.4 - 0.8 g/dL | EXTERNAL | | | | performed at [facility], [address] | | LAB | | | | [address], [place] | | | | | | [place] [address] | | | | + + + + + + | BETA 2, BF | 0.3Comment: Testing | 0.2 - 0.6 g/dL | EXTERNAL | | | | performed at [facility], [address] | | LAB | | | | [address], [place] | | | | | | [place] [address] | | | | + + + + + + | GAMMA, BF | 1.3Comment: Testing | 0.6 - 1.5 g/dL | EXTERNAL | | | | performed at [facility], [address] | | LAB | | | | [place] | | | | | | [place] [address] | | | | + + + + + + | Albumin | 44.9 (L)Comment: Testing | 45.0 - 80.0 % | EXTERNAL | | | | performed at [facility], [address] | | LAB | | | | [address] [place] | | | | | | [place] [address] | | | | + + + + + + | ALPHA 1, BF | 5.8Comment: Testing | 1.0 - 6.0 % | EXTERNAL | | | | performed at [facility], [address] | | LAB | | | | [place] | | | | | | [place] [address] | | | | + + + + + + | Alpha 2 % | 15.2Comment: Testing | 6.0 - 17.0 % | EXTERNAL | | | | performed at [facility], [address] | | LAB | | | | [place] | | | | | | [place] [address] | | | | + + + + + + | Beta-1 % | 7.0Comment: Testing | 5.0 - 13.0 % | EXTERNAL | | | | performed at [facility], [address] | | LAB | | | | [place] | | | | | | [place] [address] | | | | + + + + + + | Beta-2 % | 5.5Comment: Testing | 2.0 - 8.5 % | EXTERNAL | | | | performed at [facility], [address] | | LAB | | | | [place] | | | | | | [place] [address] | | | | + + + + + + | GAMMA, BF | 21.6Comment: Testing | 7.5 - 24.0 % | EXTERNAL | | | | performed at [facility], [address] | | LAB | | | | [address] [place] | | | | | | [place] [address] | | | | + + + + + + | ELP | HYPOALBUMINEMIA.Comment: | | EXTERNAL | | | INTERPRETAT | INTERPRETED BY | | LAB | | | ION | JSCTesting performed at | | | | | | [facility], [address] | | | | | | [place] | | | | | | [address] | | | | + + + + + + | Immunofixat | SEE BELOWComment: SERUM | | EXTERNAL | | | ion, Urine | [facility] [employer] SHOW NO | | LAB | | | Interp | EVIDENCE OF MONOCLONAL | | | | | | GAMMOPATHY.INTERPRETED | | | | | | BY JSCTesting performed | | | | | | at [facility], [address] | | | | | | [place] | | | | | | [address] | | | | + + + [...] +---------+ + + Hepatitis A, B, C Panel, Reflex (10/26/2015 5:26 AM PST) + + [...] | | | | [facility], [address] [facility] | | | | | | [place] | | | | | | [address] | | | | + + + + + + | HEP B | NON REACTIVEComment: | | EXTERNAL | | | SURFACE | Testing performed at | | LAB | | | ANTIBODY | [facility], [address] | | | | | | [place] | | | | | | [address] | | | | + + + + + + | Hepatitis B | NON REACTIVEComment: | | EXTERNAL | | | Core Ab | Testing performed at | | LAB | | | Total | [facility], [address] | | | | | | [place] | | | | | | [address] | | | | + + + + + + | HCV Ab | NON REACTIVEComment: | | EXTERNAL | | | | Testing performed at | | LAB | | | | [facility], [address] | | | | | | [place] | | | | | | [address] | | | | + + + [...] | | | | | performed at [facility], [address] | | | | | | [facility], | | | | | | [place] [address] | | | | + + + [...] | | LAB | | | | [employer], | | | | | | [place] [address] | | | | + + + + + + | Complement | 24.0Comment: Testing | 10 - 40 mg/dL | EXTERNAL | | | Comp 4 | performed at [facility], [address] | | LAB | | | | [address], | | | | | | [place] [address] | | | | + + + [...] | | LAB | | | | [facility];[address] | | [address];[place] [address] | | | | + + + [...] | | | | | - 20 [id number] - 30 | | | | | [...] THE | | | | | | VerastemA LITE GBM | | | | | [...] | | | | | | at [facility], [address] | | | | | | [facility] | | | | | | [address] | | | | + + + [...] | | | N | performed at [facility], [address] | | LAB | | | | [address] [facility] | | | | | | [place] [address] | | | | + + + + + + | CRYOGLOBULI | NEGATIVEComment: Testing | | EXTERNAL | | | N 48H | performed at [facility], [address] | | LAB | | | | [address] [facility] [place] | | | | | | [place] [address] | | | | + + + + + + | CRYOGLOBULI | NEGATIVEComment: Testing | | EXTERNAL | | | [address] 72H | performed at [facility], [address] | | LAB | | | | [address] [facility] | | | | | | [place] [address] | | | | + + + + + + | CRYOGLOBULI | NEGATIVEComment: Testing | | EXTERNAL | | | N 7D | performed at [facility], [address] | | LAB | | | | [address] [facility], [place] | | | | | | [place] [address] | | | | + + + [...] [place] | | | | | | [address] | | | | + + + [...] | | | Streptolysi | performed at [facility], [address] | | LAB | | | [address] | [address], | | | | | | [place] [address] | | | | + + + [...] | | | | | | P,CHROMATIN, WORK MEASUREMENT ENGINEER, SM | | | | | | WORK MEASUREMENT ENGINEER, SCL-70, CENTROMERE | | | | | | B, SSA, SSB AND ALAINA-1) | | | | | | WASPERFORMED AND NO | | | | | | AUTOANTIBODIES WERE | | | | | | DETECTED.Testing | | | | | | performed at [facility], [address] | | | | | | [place] | | | | | | [place] [address] | | | | + + + + + + | ANCA Screen | <1:20Comment: REFERENCE | | EXTERNAL | | | | RANGE: <1:20Testing | | LAB | | | | performed at [facility], [address] | | | | | | [place] | | | | | | [place] [address] | | | | + + + [...] | | | | sting performed at [facility], | | | | | | [address], | | | | | | [place] [address] | | | | + + + [...] [address] | | | | | | [place] | | | | | | [address] | | | | + + + [...] | | | Patient | performed at [facility];[address] | | LAB | | | | [address];[place], [place] | | | | | | [address] | | | | + + + [...] EXTERNAL | | | | performed at [facility], [address] | | LAB | | | | [address], | | | | | | [place] [address] | | | | + + + [...] | | | | | performed at [facility];[address] | | | | | | [address];[place], [place] | | | | | | [address] | | | | + + + [...] + +---------+ + + External Lab: BLAINE (10/26/2015 5:26 AM PST) + + +---- + + + | Component | Value | Ref Range | Performed | Pathologist | | | | | At | Signature | + + +---- + + + | WBC | 9.11Comment: Testing | 3.8 0 - 11.00 | EXTERNAL | | | | performed at [facility], [address] | K/u L | LAB | | | | [address], | | | | | | [place] [address] | | | | + + +---- + + + | Red Blood | 2.21 (L)Comment: Testing | 3.7 0 - 5.10 | EXTERNAL | | | Cells | performed at [facility], [address] | [address] | LAB | | | Counted | [address], | | | | | | [place] [address] | | | | + + +---- + + + | Hemoglobin | 5.7 (LL)Comment: RESULT | 11. 3 - 15.5 | EXTERNAL | | | | READ BACK BY: HUMERA MARTINEZ | g/d L | LAB | | | | AT 0648 ON 10/26/2015 | | | | | | SURG TH Testing | | | | | | performed at [facility], [address] | | | | | | [address], | | | | | | [place] [address] | | | | + + +---- + + + | Hematocrit, | 18.2 (LL)Comment: RESULT | 34. 0 - 46.0 % | EXTERNAL | | | POC | READ BACK BY: HUMERA Sutherland | | | MICHELLE AT 0648 ON 10/26/2015 | | | | | | SURG TH Testing | | | | | | performed at [facility], [address] | | | | | | [address], | | | | | | [place] [address] | | | | + + +---- + + + | MCV | 82.5Comment: Testing | 80. 0 - 100.0 fl | EXTERNAL | | | | performed at [facility], [address] | | LAB | | | | [address], | | | | | | [place] [address] | | | | + + +---- + + + | MCH | 25.7 (L)Comment: Testing | 27. 0 - 34.0 pg | EXTERNAL | | | | performed at [facility], [address] | LAB | | | | [address], | | | | | | [place] [address] | | | | + + +---- + + + | MCHC | 31.1 (L)Comment: Testing | 32. 0 - 35.5 | EXTERNAL | | | | performed at [facility], [address] | g/d L | LAB | | | | [address], | | | | | | [place] [address] | | | | + + +---- + + + | RDW-CV | 46.4Comment: Testing | 37 - 53 fl | EXTERNAL | | | | performed at [facility], [address] | | LAB | | | | [address], | | | | | | [place] [address] | | | | + + +---- + + + | Platelet | 222Comment: Testing | 150 - 400 K/uL | EXTERNAL | | | Count | performed at [facility], [address] | | LAB | | | Plasma | [address], | | | | | | [place] [address] | | | | + + +---- + + + | MPV | 9.6Comment: Testing | fl | EXTERNAL | | | | performed at [facility], [address] | | LAB | | | | [address], | | | | | | [place] [address] | | | | + + +---- + + + | Differentia | MANUALComment: Testing | | EXTERNAL | | | l Type | performed at [facility], [address] | | LAB | | | | [address], | | | | | | [place] [address] | | | | + + +---- + + + | Segmented | 86Comment: Testing | % | EXTERNAL | | | Neutrophils | performed at [facility], [address] | | LAB | | | Manual | [address], | | | | | | [place] [address] | | | | + + +---- + + + | Lymphocytes | 9Comment: Testing | % | EXTERNAL | | | Manual | performed at [facility], [address] | | LAB | | | | [address], | | | | | | [place] [address] | | | | + + +---- + + + | Monocytes | 4Comment: Testing | % | EXTERNAL | | | Manual | performed at [facility], [address] | | LAB | | | | [address], | | | | | | [place] [address] | | | | + + +---- + + + | Eosinophils | 1Comment: Testing | % | EXTERNAL | | | Manual | performed at [facility], [address] | | LAB | | | | [address], | | | | | | [place] [address] | | | | + + +---- + + + | Absolute | 7.84 (H)Comment: Testing | 1.9 0 - 7.40 | EXTERNAL | | | Neutrophils | performed at [facility], [address] | K/[address] L | LAB | | | | [address], | | | | | | [place] [address] | | | | + + +---- + + + | Absolute | 0.82 (L)Comment: Testing | 1.0 0 - 3.90 | EXTERNAL | | | Lymphocytes | performed at [facility], [address] | K/u L | LAB | | | | [address], | | | | | | [place] [address] | | | | + + +---- + + + | Absolute | 0.36Comment: Testing | 0.0 0 - 0.80 | EXTERNAL | | | Monocytes | performed at [facility], [address] | K/u L | LAB | | | | [address], | | | | | | [place] [address] | | | | + + +---- + + + | Absolute | 0.09Comment: Testing | 0.0 0 - 0.50 | EXTERNAL | | | Eosinophils | performed at [facility], [address] | K/u L | LAB | | | | [address], | | | | | | [place] [address] | | | | + + +---- + + + | RBC | 1+Comment: | | EXTERNAL | | | Morphology | ANISO1+HYPO1+OVALONORMAL | | LAB | | | | PLT MORPHTesting | | | | | | performed at [facility], [address] | | | | | | [address] [facility], | | | | | | [place] [address] | | | | | |OVALO | | | | | |NORMAL PLT MORPH | | | | | |Testing performed at [facility], [address] [facility], [place] [address] | | | | | | | [...] + + | Hemoglobin | 5.1Comment: [employer] [place] | 4.0 - 6.0 % | EXTERNAL [...] | | | | | performed at [facility], [address] | | | | | | [address] [facility], | | | | | | [place] [address] | | | | + + + [...] | | | | | performed at [facility], [address] | | | | | | [facility], | | | | | | [place] [address] | | | | + + + [...] EXTERNAL | | | | performed at [facility];[address] | | LAB | | | | [address];[place] | | | | | | [address] | | | | + + + [...] | | | | | [place] [address] | | | | + + + + + + | Triglycerid | 137Comment: Testing | mg/dL | EXTERNAL | | | es | performed at [facility], [address] | | LAB | | | | [address], | | | | | | [place] [address] | | | | + + + + + + | HDL | 36 (L)Comment: Testing | mg/dL | EXTERNAL | | | | performed at [facility], [address] | | LAB | | | | [address], | | | | | | [place] [address] | | | | + + + + + + | LDL, | 62Comment: Testing | mg/dL | EXTERNAL | | | Calculated | performed at [facility], [address] | | LAB | | | | [address], | | | | | | [place] [address] | | | | + + + [...] | | | | | [place] [address] | | | | + + + + + + | K | 4.7Comment: Testing | 3.5 - 4.9 | EXTERNAL | | | | performed at [facility], [address] | mmol/L | LAB | | | | [address], | | | | | | [place] [address] | | | | + + + + + + | Cl | 109Comment: Testing | 99 - 109 mmol/L | EXTERNAL | | | | performed at [facility], [address] | | LAB | | | | [address], | | | | | | [place] [address] | | | | + + + + + + | CO2 | 13 (LL)Comment: RESULT | 23 - 32 mmol/L | EXTERNAL | | | | READ BACK BY: CHRISTINA | | LAB | | | | K @ MARY 7:08 12//15 | | | | | | DHTesting performed at | | | | | | [facility], [address] [address] | | | | | | [place] | | | | | | [address] | | | | + + + + + + | Anion Gap | 22 (H)Comment: Testing | 5 - 20 mmol/L | EXTERNAL | | | | performed at [facility], [address] | | LAB | | | | [address], | | | | | | [place] [address] | | | | + + + + + + | Glucose, | 90Comment: Testing | 65 - 99 mg/dL | EXTERNAL | | | Fasting | performed at [facility], [address] | | LAB | | | | [address], | | | | | | [place] [address] | | | | + + + + + + | BUN | 103 (H)Comment: Testing | 8 - 25 mg/dL | EXTERNAL | | | | performed at [facility], [address] | | LAB | | | | [address], | | | | | | [place] [address] | | | | + + + + + + | Creatinine | 15.48 (H)Comment: | 0.50 - 1.00 | EXTERNAL | | | | Testing performed at | mg/dL | LAB | | | | [facility], [address] [facility] | | | | | | [place] | | | | | | [address] | | | | + + + + + + | BUN/Creatin | 7Comment: Testing | | EXTERNAL | | | ine Ratio | performed at [facility], [address] | | LAB | | | | [address], | | | | | | [place] [address] | | | | + + + + + + | Calcium | 6.9 (L)Comment: Testing | 8.5 - 10.5 | EXTERNAL | | | | performed at [facility], [address] | mg/dL | LAB | | | | [address], | | | | | | [place] [address] | | | | + + + [...] | | | | | [place] [address] | | | | + + + [...] | | | | | DETERMINED BY [facility] | | | | | | LABORATORIES.SEE | | | | | | COMPLIANCE STATEMENT B: | | | | | | [employer]AudioPixels/CSTesting | | | | | | performed at [facility], [address] | | | | | | [facility] | | | | | | [place] [address] | | | | + + + [...] | | | Nitrogen, | performed at [facility], [address] | | LAB | | | Urine | [address], | | | | | | [place] [address] | | | | + + + [...] LAB | | | | performed at [facility], [address] | | | | | | [address], | | | | | | [place] [address] | | | | + + + [...] | | | | | [place] [address] | | | | + + + [...] at | | | | | | [facility];[address] [place] [address] | | | | | | [facility];[place] [address] | | | | + + + [...] | | | Urine | performed at [facility], [address] | | LAB | | | | [address] [facility], | | | | | | [place] [address] | | | | + + + [...] | | immunofluorescence studies. 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 | | | - Acute tubular injury [...] seen and | | | processed at [facility] in [place], [place]. | | | (Report # [id number]). GROSS DESCRIPTION: The specimen is received in | | | formalin labeled with the patient's name and designated "Kidney | | | biopsy. SENT TO [facility]." The kidney biopsy was performed by | [...] | | | Very few [place] [facility] GROSS DESCRIPTION: Three | | | specimens are received, each labeled and designated "[place], kidney | | | [place]". Specimen received in formalin consists of three [...] preparation was | | | performed by [employer], [facility], [address] | | | [place] [address] (Processing Manager: Jose C | | | Bianka Weir; [facility]#: [id number]). COMMENT: Ultrastructural | | | examination is [...] PDT RAMONA MUSA KIDNEYS AND | | [id number]/25/2015 6:17 PM History: 35 years. Female. Acute [...] HAND | | | Testing performed at [facility];[address] [place] [address] | | | Blvd;[place] [address] CULTURE | | | NO GROWTH 6 DAYS | | | Testing performed at [facility], [address] [facility] [place], [place] | | | [address] | | + + + + +---------+ [...] AC | | | Testing performed at [facility];[address] | | | [facility];[place] [address] CULTURE | | | NO GROWTH 6 DAYS | | | Testing performed at [facility], [address] [facility], [place], [place] | | | [address] | | + + + + +---------+ [...] + + + | BB BAND | [id number] | | EXTERNAL | | | | | | LAB | | + + + + + + | UNIT NUMBER | [id number] | | EXTERNAL | | | | [...] + + + | UNIT NUMBER | [id number] | | EXTERNAL | | | | | | LAB | | + + + + + + | UNIT NUMBER | Testing performed at | | EXTERNAL | | | | [facility];[address] | | LAB | | | | [address];[place] [address] | | | | + + + + + + | Product | LEUKODEPLETED PCTesting | | EXTERNAL | | | Code | performed at [facility];[address] | | LAB | | | | [address];[place] | | | | | | [address] | | | | + + + + + + | Unit | 00Testing performed at | | EXTERNAL | | | Division | [facility];[address] | | LAB | | | | [address];[place] [address] | | | | + + + + + + | Unit Status | ISSUED,FINALTesting | | EXTERNAL | | | | performed at [facility];[address] | | LAB | | | | [address];[place] | | | | | | [address] | | | | + + + + + + | Transfusion | OK TO TRANSFUSETesting | | EXTERNAL | | | Status | performed at [facility];[address] | | LAB | | | | [address];[place] | | | | | | [address] | | | | + + + + + + | CROSSMATCH | COMPATIBLETesting | | EXTERNAL | | | RESULT | performed at [facility];[address] | | LAB | | | | [address];[place] | | | | | | [address] | | | | + + + [...] | | | Patient | performed at [facility];[address] | | LAB | | | | [address];[place], [place] | | | | | | [address] | | | | + + + [...] | | | | | performed at [facility];[address] | | | | | | [address];[place], [place] | | | | | | [address] | | | | + + + [...] K/uL | LAB | | | | [facility];[address] | | | | | | [address];[place] [address] | | | | + + + + + + | Red Blood | 2.69 (L)Comment: Testing | 3.70 - 5.10 | EXTERNAL | | | Cells | performed at [facility];[address] | M/uL | LAB | | | Counted | [address];[place] | | | | | | [address] | | | | + + + + + + | Hemoglobin | 6.7 (LL)Comment: CALLED | 11.3 - 15.5 | EXTERNAL | | | | PHYSICIANREAD BACK | g/dL | LAB | | | | RESULTS VERIFIEDDR LATER | | | | | | AT 1447 JGRTesting | | | | | | performed at [facility];[address] | | | | | | [address];[place] | | | | | | [address] | | | | + + + + + + | Hematocrit, | 22.3 (L)Comment: Testing | 34.0 - 46.0 % | EXTERNAL | | | POC | performed at [facility];[address] | | LAB | | | | [address];[place] | | | | | | [address] | | | | + + + + + + | MCV | 82.9Comment: Testing | 80.0 - 100.0 fl | EXTERNAL | | | | performed at [facility];[address] | | LAB | | | | [address];[place] | | | | | | [address] | | | | + + + + + + | MCH | 25.0 (L)Comment: Testing | 27.0 - 34.0 pg | EXTERNAL | | | | performed at [facility];[address] | | LAB | | | | [address];[place] | | | | | | [address] | | | | + + + + + + | MCHC | 30.2 (L)Comment: Testing | 32.0 - 35.5 | EXTERNAL | | | | performed at [facility];[address] | g/dL | LAB | | | | [address];[place] | | | | | | [address] | | | | + + + + + + | RDW-CV | 44.6Comment: Testing | 37 - 53 fl | EXTERNAL | | | | performed at [facility];[address] | | LAB | | | | [address];[place] | | | | | | [address] | | | | + + + + + + | Platelet | 253Comment: Testing | 150 - 400 K/uL | EXTERNAL | | | Count | performed at [facility];[address] | | LAB | | | Plasma | [address];[place] | | | | | | [address] | | | | + + + + + + | MPV | 9.0Comment: Testing | fl | EXTERNAL | | | | performed at [facility];[address] | | LAB | | | | [address];[place] | | | | | | [address] | | | | + + + + + + | Differentia | MANUALComment: Testing | | EXTERNAL | | | l Type | performed at [facility];[address] | | LAB | | | | [address];[place] | | | | | | [address] | | | | + + + + + + | Segmented | 96Comment: Testing | % | EXTERNAL | | | Neutrophils | performed at [facility];[address] | | LAB | | | Manual | [address];[place] | | | | | | [address] | | | | + + + + + + | Lymphocytes | 4Comment: Testing | % | EXTERNAL | | | Manual | performed at [facility];[address] | | LAB | | | | [address];[place] | | | | | | [address] | | | | + + + + + + | Absolute | 10.96 (H)Comment: | 1.90 - 7.40 | EXTERNAL | | | Neutrophils | Testing performed at | K/uL | LAB | | | | [facility];[address] | | | | | | [address];[place] [address] | | | | + + + + + + | Absolute | 0.46 (L)Comment: Testing | 1.00 - 3.90 | EXTERNAL | | | Lymphocytes | performed at [facility];[address] | K/uL | LAB | | | | [address];[place] | | | | | | [address] | | | | + + + + + + | Platelet | ADEQUATEComment: Testing | | EXTERNAL | | | Estimate | performed at [facility];[address] | | LAB | | | | [address];[place] | | | | | | [address] | | | | + + + + + + | RBC | 2+Comment: | | EXTERNAL | | | Morphology | HYPO1+PLATELET | | LAB | | | | ANISOCYTOSISTesting | | | | | | performed at [facility];[address] | | | | | | [address];[place] | | | | | | [address] | | | | | | | [...] EXTERNAL | | | | performed at [facility];[address] | mmol/L | LAB | | | | [address];[place] | | | | | | [address] | | | | + + + + + + | K | 4.8Comment: Testing | 3.5 - 4.9 | EXTERNAL | | | | performed at [facility];[address] | mmol/L | LAB | | | | [address];[place] | | | | | | [address] | | | | + + + + + + | Cl | 106Comment: Testing | 99 - 109 mmol/L | EXTERNAL | | | | performed at [facility];[address] | | LAB | | | | [address];[place] | | | | | | [address] | | | | + + + + + + | CO2 | 16 (L)Comment: Testing | 23 - 32 mmol/L | EXTERNAL | | | | performed at [facility];[address] | | LAB | | | | [address];[place] | | | | | | [address] | | | | + + + + + + | Anion Gap | 20Comment: Testing | 5 - 20 mmol/L | EXTERNAL | | | | performed at [facility];[address] | | LAB | | | | [address];[place] | | | | | | [address] | | | | + + + + + + | Glucose, | 150 (H)Comment: Testing | 65 - 99 mg/dL | EXTERNAL | | | Fasting | performed at [facility];[address] | | LAB | | | | [address];[place] | | | | | | [address] | | | | + + + + + + | BUN | 99 (H)Comment: Testing | 8 - 25 mg/dL | EXTERNAL | | | | performed at [facility];[address] | | LAB | | | | [address];[place] | | | | | | [address] | | | | + + + + + + | Creatinine | 17 (H)Comment: Testing | 0.50 - 1.00 | EXTERNAL | | | | performed at [facility];[address] | mg/dL | LAB | | | | [address];[place] | | | | | | [address] | | | | + + + + + + | BUN/Creatin | 6Comment: Testing | | EXTERNAL | | | ine Ratio | performed at [facility];[address] | | LAB | | | | [address];[place] | | | | | | [address] | | | | + + + + + + | Calcium | 6.9 (L)Comment: Testing | 8.5 - 10.5 | EXTERNAL | | | | performed at [facility];[address] | mg/dL | LAB | | | | [address];[place] | | | | | | [address] | | | | + + + + + + | Protein, | 7.9Comment: Testing | 6.3 - 8.2 g/dL | EXTERNAL | | | Total | performed at [facility];[address] | | LAB | | | | [address];[place] | | | | | | [address] | | | | + + + + + + | Albumin | 3.3 (L)Comment: Testing | 3.6 - 5.0 g/dL | EXTERNAL | | | | performed at [facility];[address] | | LAB | | | | [address];[place] | | | | | | [address] | | | | + + + + + + | Globulin | 4.6Comment: Testing | 1.3 - 4.9 g/dL | EXTERNAL | | | | performed at [facility];[address] | | LAB | | | | [address];[place] | | | | | | [address] | | | | + + + + + + | A/G Ratio | 0.7 (L)Comment: Testing | 1.0 - 2.4 | EXTERNAL | | | | performed at [facility];[address] | | LAB | | | | [address];[place] | | | | | | [address] | | | | + + + + + + | Bilirubin | 0.3Comment: Testing | 0.1 - 1.5 mg/dL | EXTERNAL | | | Total | performed at [facility];[address] | | LAB | | | | [address];[place] | | | | | | [address] | | | | + + + + + + | ALP, | 76Comment: Testing | 35 - 115 U/L | EXTERNAL | | | External | performed at [facility];[address] | | LAB | | | | [address];[place] | | | | | | [address] | | | | + + + + + + | AST | 11Comment: Testing | 10 - 45 U/L | EXTERNAL | | | | performed at [facility];[address] | | LAB | | | | [address];[place] | | | | | | [address] | | | | + + + + + + | ALT | 15Comment: Testing | 10 - 65 U/L | EXTERNAL | | | | performed at [facility];[address] | | LAB | | | | [address];[place], [place] | | | | | | [address] | | | | + + + [...] | | | | | | at [facility];[address] [facility] | | | | | | Blvd;[place] [address] | | | | + + + [...] EXTERNAL | | | | performed at [facility];[address] | | LAB | | | | [address] [facility];[place], [place] | | | | | | [address] | | | | + + + + + + | Clarity | HAZYComment: Testing | | EXTERNAL | | | | performed at [facility];[address] | | LAB | | | | [address];[place] | | | | | | [address] | | | | + + + + + + | Specific | 1.011Comment: Testing | 1.002 - 1.030 | EXTERNAL | | | [place], | performed at [facility];[address] | | LAB | | | Urine | [address];[place] | | | | | | [address] | | | | + + + + + + | Leukocyte | TRACE (A)Comment: | | EXTERNAL | | | Esterase, | Testing performed at | | LAB | | | Urine | [facility];[address] | | | | | | [address];[place] [address] | | | | + + + + + + | Nitrite, | NEGATIVEComment: Testing | | EXTERNAL | | | Urine | performed at [facility];[address] | | LAB | | | | [address];[place] | | | | | | [address] | | | | + + + + + + | Urobilinoge | NORMALComment: Testing | mg/dL | EXTERNAL | | | n, Urine | performed at [facility];[address] | | LAB | | | | [address];[place] | | | | | | [address] | | | | + + + + + + | Protein, | 100 (A)Comment: Testing | mg/dL | EXTERNAL | | | Urine | performed at [facility];[address] | | LAB | | | | [address];[place] | | | | | | [address] | | | | + + + + + + | pH, Urine | 5.0Comment: Testing | 5.0 - 8.0 | EXTERNAL | | | | performed at [facility];[address] | | LAB | | | | [address];[place] | | | | | | [address] | | | | + + + + + + | Blood, | LARGE (A)Comment: | | EXTERNAL | | | Urine | Testing performed at | | LAB | | | | [facility];[address] | | | | | | [address];[place] [address] | | | | + + + + + + | Ketones | NEGATIVEComment: Testing | mg/dL | EXTERNAL | | | | performed at [facility];[address] | | LAB | | | | [address];[place] | | | | | | [address] | | | | + + + + + + | Bilirubin, | NEGATIVEComment: Testing | | EXTERNAL | | | Urine | performed at [facility];[address] | | LAB | | | | [address];[place] | | | | | | [address] | | | | + + + + + + | Glucose, | 50 (A)Comment: Testing | mg/dL | EXTERNAL | | | Urine | performed at [facility];[address] | | LAB | | | | [address];[place] | | | | | | [address] | | | | + + + + + + | WBC, UA | 26-49Comment: Testing | 0 - 5 /hpf | EXTERNAL | | | | performed at [facility];[address] | | LAB | | | | [address];[place] | | | | | | [address] | | | | + + + + + + | RBC, UA | >100Comment: Testing | 0 - 5 /hpf | EXTERNAL | | | | performed at [facility];[address] | | LAB | | | | [address];[place] | | | | | | [address] | | | | + + + + + + | Bacteria, | 4+ (A)Comment: Testing | | EXTERNAL | | | UA | performed at [facility];[address] | | LAB | | | | [address];[place] | | | | | | [address] | | | | + + + + + + | Epithelial | 16-25Comment: Testing | /lpf | EXTERNAL | | | Cells | performed at [facility];[address] | | LAB | | | | [address];[place] | | | | | | [address] | | | | + + + + + + | Mucus, | 1+Comment: Testing | | EXTERNAL | | | Urine | performed at [facility];[address] | | LAB | | | | [address];[place] | | | | | | [address] | | | | + + + + + + | AMORPHOUS | 1+Comment: Testing | | EXTERNAL | | | CRYSTAL | performed at [facility];[address] | | LAB | | | | [address];[place] | | | | | | [address] | | | | + + + [...] PNEUMONIAEAbnormal | | | Testing performed at [facility], [address] [place], [place] | | | [address] Suscepibility for - KLEBSIELLA PNEUMONIAE Ampicillin | [...]
--- OUTSIDE RECORDS SUMMARY | ~2020-05-11 | XMS | Encounter Summary ---
Demographics + + + | Address | [address] | | | [place] [address] | + + + | Home Phone [...] [place], [place] | | | | | [address] | | + + + + + | Lydia Palm | ECON | [place], [place] | | | | | [address] | | + + + + + | melinda METZ" | ECON | [place], [place] | | | reba | | [address] | | + + + + + | Jose C Oconnor | ECON | [place] | | | | | [place] | | | | | [address] | | + + + + + Care Team Providers + +------+ + | Care Shoe Sprayer Name | Role | Phone | + [...] | | | | | disease) | [place] | | | | | | ([facility]) | [address] | | | | | | Procedures | Phone: | | | | | | VAS Ankle | [phone] | | | | | | Brachial | Fax: | | | | | | Index | [phone] | | | | | | Resting | | | +--------+--------+ + + + + Reason for Visit +---------+ + | Reason | Comments | +---------+ + | Consult | AVF creation | +---------+ + Encounter Details +--------+---------+ + + + | Date | Type | Department | Care Team | Description | +--------+---------+ + + + | 12/23/ | Office | [facility] | Mundo Ramos MD | PAD (peripheral | | 2020 | Visit | VASCULAR SURGERY | [address] | artery disease) | | | | [address] | [place] | ([facility]) (Primary Dx); | | | | [place] | [address] | ESRD on dialysis | | | | [address] | [phone] | ([facility]) | | | | [phone] | | | +--------+---------+ + + + [...] 10/25/15 showed normal sized kidneys. 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 MAIN OR AV FISTULA REPAIR N/A 08/26/2019 Procedure: REVISION LEFT AXILLARY AVG; WILL NEED C-ARM, OCCLUSION BALLOONS, VIABAHN STENTS ; Surgeon: Qasim Pederson MD; [place] [facility] [place] AV FISTULA REPAIR Left 09/03/2019 Procedure: Resection of left arm AV graft with wound vac placement; Surgeon: Lexi Posada; Location: [facility] [place] OR CATHETER REMOVAL 02/04/2019 Procedure: DIALYSIS CATHETER - REMOVAL; Surgeon: Qasim Pederson MD; Location: [facility] OR ; Service: Vascular; Laterality: N/A; Infected PD catheter removal DEBRIDEMENT Left 07/08/2019 Procedure: LEFT AXILLA WOUND DEBRIDEMENT, WASHOUT AND POSSIBLE WOUND VAC PLACEMENT; Surge on: Qasim Pederson MD; Location: [facility] [place] OTHER SURGICAL HISTORY Left 03/11/2019 AV FISTULA PLACEMENT - Procedure: AV FISTULA; Surgeon: Qasim Pederson MD; Location: [facility] OR; Service: Vascular; Laterality: Left; OTHER SURGICAL HISTORY HARDWARE PRESENT OTHER SURGICAL HISTORY Right 01/2019 chest wall OTHER SURGICAL HISTORY Left 05/06/2019 AV GRAFT CREATION - Procedure: AV GRAFT CREATION; Surgeon: Qasim Pederson MD; Location: [facility] OR; Service: Vascular; Laterality: Left; bovine carotid graft OTHER SURGICAL HISTORY Left 05/26/2019 WOUND VAC PLACEMENT/REPLACEMENT - Procedure: WOUND VAC - PLACEMENT - REPLACEMENT; Surgeon : Qasim Pederson MD; Location: [facility] MAIN OR; Service: Vascular; Laterality: Left; PERITONEAL CATHETER PLACEMENT/REMOVAL 10/28/2015 Procedure: LAPAROSCOPIC - PERITONEAL DIALYSIS CATH INSERTION; Surgeon: Mundo Ramos MD; Lo cation: [facility] MAIN OR; Service: Vascular; Laterality: N/A; UPPER GASTROINTESTINAL ENDOSCOPY 09/10/2017 Procedure: ESOPHAGOGASTRODUODENOSCOPY; Surgeon: Beena Peters MD; Location: [facility] ENDOSCOP Y; Service: Gastroenterology; Laterality: N/A; WISDOM TOOTH EXTRACTION Social History Tobacco Use Smoking status: Former Smoker Packs/day: 0.25 Years: 10.00 Pack years: 2.50 Last attempt to quit: 2004 Years since quittin.1 Smokeless tobacco: Never Used [...] CV: No peripheral edema, rate regular SKIN: [place], warm, dry without rash/lesion MS: ROM not [...] agree with its con tents. Signed by: Jason Wade 12/23/19, 4:15 PM Mundo Ramos MD documented in this enc ounter H&P Notes Mundo Ramos MD - 12/23/2019 4:30 [...] 10/25/15 showed normal sized kidneys. 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 MAIN OR AV FISTULA REPAIR N/A 08/26/2019 Procedure: REVISION LEFT AXILLARY AVG; WILL NEED C-ARM, OCCLUSION BALLOONS, VIABAHN STENTS ; Surgeon: Qasim Pederson MD; Location[place] [facility] [place] AV FISTULA REPAIR Left 09/03/2019 Procedure: Resection of left arm AV graft with wound vac placement; Surgeon: Lexi Posada; Location: [facility] [place] CATHETER REMOVAL 02/04/2019 Procedure: DIALYSIS CATHETER - REMOVAL; Surgeon: Qasim Pederson MD; Location: [facility] MAIN OR ; Service: Vascular; Laterality: N/A; Infected PD catheter removal DEBRIDEMENT Left 07/08/2019 Procedure: LEFT AXILLA WOUND DEBRIDEMENT, WASHOUT AND POSSIBLE WOUND VAC PLACEMENT; Surge on: Qasim Pederson MD; Location: [facility] [place] OTHER SURGICAL HISTORY Left 03/11/2019 AV FISTULA PLACEMENT - Procedure: AV FISTULA; Surgeon: Qasim Pederson MD; Location: [facility] OR; Service: Vascular; Laterality: Left; OTHER SURGICAL HISTORY HARDWARE PRESENT OTHER SURGICAL HISTORY Right 01/2019 chest wall OTHER SURGICAL HISTORY Left 05/06/2019 AV GRAFT CREATION - Procedure: AV GRAFT CREATION; Surgeon: Qasim Pederson MD; Location: [facility] MAIN OR; Service: Vascular; Laterality: Left; bovine carotid graft OTHER SURGICAL HISTORY Left 05/26/2019 WOUND VAC PLACEMENT/REPLACEMENT - Procedure: WOUND VAC - PLACEMENT - REPLACEMENT; Surgeon : Qasim Pederson MD; Location: [facility] MAIN OR; Service: Vascular; Laterality: Left; PERITONEAL CATHETER PLACEMENT/REMOVAL 10/28/2015 Procedure: LAPAROSCOPIC - PERITONEAL DIALYSIS CATH INSERTION; Surgeon: Mundo Ramos MD; Lo cation: [facility] MAIN OR; Service: Vascular; Laterality: N/A; UPPER GASTROINTESTINAL ENDOSCOPY 09/10/2017 Procedure: ESOPHAGOGASTRODUODENOSCOPY; Surgeon: Beena Peters MD; Location: [facility] ENDOSCOP Y; Service: Gastroenterology; Laterality: N/A; WISDOM TOOTH EXTRACTION Social History Tobacco Use Smoking status: Former Smoker Packs/day: 0.25 Years: 10.00 Pack years: 2.50 Last attempt to quit: 2004 Years since quittin.1 Smokeless tobacco: Never Used [...] CV: No peripheral edema, rate regular SKIN: [place], warm, dry without rash/lesion MS: ROM not [...] Note: Documentation assistance provided by Juan Dai (Ishmaelibyanely). In formation recorded by the jason has been reviewed and validated by me. I agree with its con tents. Signed by: Jason Wade 12/23/19, 4:15 PM Mundo Ramos MD documented in this enc ounter Miscellaneous Notes Addendum Note - Mundo Ramos MD - 12/23/2019 4:30 PM PST Addended by: MUNDO RAMOS on: 05:30 PM Modules accepted: Level of Service documented in this e ncounter Plan of Treatment + +------+--------+ + + | Name | Type | Priori | Associated Diagnoses | Order Schedule | | | | ty | | | + +------+--------+ + + | Basic Metabolic | Lab | Routin | ESRD on dialysis | 1 Occurrences | | Panel | | e | ([facility]) | starting 12/23/2019 | | | | | | until 12/23/2020 | + +------+--------+ + + | CBC no Differential | Lab | Routin | ESRD on dialysis | 1 Occurrences | | | | e | (HCC) | starting 12/23/2019 | | | | [...]
--- OUTSIDE RECORDS SUMMARY | ~2020-05-11 | XMS | Encounter Summary ---
Demographics + + + | Address | [address] | | | [place] [address] | + + + | Home Phone [...] [place], [place] | | | | | [address] | | + + + + + | Lydia Palm | ECON | [place], [place] | | | | | [address] | | + + + + + | melinda METZ" | ECON | [place], [place] | | | [place] | | [address] | | + + + + + | Jose C Oconnor | ECON | [address] [place] | | | | | [place] | | | | | [address] | | + + + + + Care Team Providers + +------+ + | Care Communications Controller Name | Role | Phone | + +------+ + | Eileen Rick | PCP | | + +------+ + Reason for Visit + +--------+ + | Reason | Onset | Comments | | | Date | | + +--------+ + | Appointment | 07/06/ | | | | 2019 | | + +--------+ + Encounter Details +--------+ + + + + | Date | Type | Department | Care Team | Description | +--------+ + + + + | 07/06/ | Telephone | [facility] | Nidhi Whitaker, | Appointment | | 2019 | | VASCULAR SURGERY | RN | | | | | [address] | | | | | | [place] | | | | | | [address] | | | | | | [phone] | | | +--------+ + + + [...] Telephone Encounter - Nidhi Whitaker RN - 07/06/2019 4:42 PM PDTCalled and spoke to eris villegas's , notified that patient will need to bring her portable wound vac and her supplies with her to [facility] on 07/08/2019. Patient's stated understanding. Alexandra ctronically signed by Nidhi Whitaker RN at 07/06/2019 4:43 PM PDTdocumented in this enco unter Plan of Treatment Not on filedocumented as of this encounter Visit Diagnoses Not on filedocumented in this encounter
--- OUTSIDE RECORDS SUMMARY | ~2020-05-11 | XMS | Encounter Summary ---
Demographics + + + | Address | [address] | | | [place] [address] | + + + | Home Phone [...] [place], [place] | | | | | [address] | | + + + + + | Lydia Palm | ECON | [place], [place] | | | | | [address] | | + + + + + | melinda METZ" | ECON | [place], [place] | | | [place] | | [address] | | + + + + + | Tyler Reeves | ECON | [place] [place] | | | | | [place] | | | | | [address] | | + + + + + Care Team Providers + +------+ + | Care Finished Yarn Examiner Name | Role | Phone | [...] [address] [place] | [place] [address] | | | | | [address] | [phone] | | | | | [address] | | | | | | [phone] | | | +--------+ + + + [...] this encounter Miscellaneous Notes Telephone Encounter - Liz Ingram - 08/27/2018 9:38 AM PDTREFERRAL LETTER AND CHECKLIST Referral letter and checklist mailed to patient, and faxed to net lead architect and dialysis uni t. elephone Encounter - Liz Rg - 08/27/2018 9:07 AM PDTFormatting of this note might be different from the ave rao. Call back from patient regarding intake questionairre Intake Questionnaire [address] [facility] [place] [address] *husbands phone number-she does not have her own phone No e-mail address on record -n/a Are you a citizen? [x] Yes [] No Resident Alien? [] Yes [] No Non-resident Alien? [] Yes [] No Height : 5ft2in Weight: 170 BMI: 31.1 Do you smoke? [] Yes [x] No Have you ever? [x] Yes [] No Quit Date: 2015 # Years? 7 years Packs per day?4-5 cigs per day Chewing? [] Yes [x] No Do you use drugs? [] Yes [x] No If yes, what type: Marijuana? [] Yes [] No If Yes, Prescription: Marijuana OIL Do you drink alcohol? [] Yes [x] No If yes, how often do you drink? How many drinks at one time? Have you ever been to treatment for alcohol abuse? [] Yes [x] No If yes, When & Where? Race: ____Native American____ Country of ? [place] Preferred Language? Engl ish Visual Impairment?[] Yes [x] No Deaf? [] Yes [x] No Hard of Hearing? [] Yes [x] No If yes, Reason? Do you need assistance for daily living activities such as (showering, cooking, dana moose, etc.)? [] Yes [] No If Yes, please explain: SOMETIMES- takes care of some things when she is fatigued from dialysis. Do you use any assistive devices for walking such as (a cane, wheelchair, scooter, e tc.)? DOES HAVE HANDICAP STICKER FOR VEHICLE BUT STATES SHE IS NOT DISABLED [] Yes [x] No If Yes, please explain: Working for Income? 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 [x] Yes [] No Primary: [facility] Secondary: [facility] Subcriber: SELF ? [x] Yes, [] No, Spouses Name TYLER REEVES Spouse's / If Subscriber: ___ If not : [] Single [] [] Highest Education: ? Emergency Contact: Name/Relationship __TYLER REEVES Phone # ___[phone] Living Donor? [] Yes [x] No Support? [x] Yes [] No Cause of End Stage Kidney Disease? UNKNOWN Currently on Dialysis? [x] Yes [] No [] Hemodialysis [x] Peritoneal Dialysis Name of Dialysis Facility ___[facility] Dialysis Schedule ___12 H RS AT HOME Date of First Dialysis: 11/01/15 Do you still make urine? [] Yes [x] No If yes, amount in 24 hours? Have you ever had a blood transfusion? [x]Yes [] No Yes If yes, when? 10/2015____ Have you ever been on / or prescribed cytoxan? NO PCP Name & Telephone #: JUAN F WHITLEY MD -[facility] [phone] Do you have a dentist? NO Any testing on head? YES Carotid US? [] Yes [x] No If yes, where? CT Scan? [x] Yes [] No If yes, where? May 2018 [facility] Do you have a Melter Supervisor? [] Yes [x] No If yes, Melter Supervisor's name: Are you on O2? [] Yes [x] No If yes, how often? Pulmonary Function Tests? [] Yes [x] No If yes, where? Chest CT [x] Yes [] No If yes, where?[facility] CXR? [x] Yes [] No If yes, where? [facility] Do you have a Academic Guidance Specialist? [] Yes [x] No If yes, Cardiologists name: EKG? [x] Yes [] No If yes, where? [facility] Stress Test? [] Yes [x] No If yes, where? ECHO? [x] Yes [] No If yes, where? [facility] Heart Cath? [] Yes [x] No If yes, where? Do you have diabetes? [] Yes [x] No If yes, how many years? If yes, do you have an system admin? [] Yes [x] No If yes, Endocrinologists n claribel: Do you have a Language Therapist? [] Yes [x] No If yes, Gastroenterologists name: Endoscopy? [x] Yes [] No If yes, where? [facility] AUG 2017 Colonoscopy? [] Yes [x] No If yes, where? CT ABD/Pelvis? [x] Yes [] No If yes, where?[facility] AUG 2017 Do you have a Urologist? [] Yes [x] No If yes, Urologists name: Renal US? [] Yes [x] No If yes, where? Cystoscopy? [] Yes [x] No If yes, where? Kidney Biopsy? [] Yes [x] No If yes, where? Have you had cancer? [] Yes [x] No If yes, Oncologists name: Biopsy done? [] Yes [x] No If yes, where? Type(s) of Cancer? Family History of Cancers? GRANDMA- BREAST CX GRANDPA(ZAMZAM) OF KIDNEY F AILURE AT AGE 36 Have you had major surgery? [] Yes [x] No If yes, where? Previous Transplant? [] Yes [x] No If yes, where? Have you ever been evaluated for a transplant? _NO Pap smear? [] N/A [x] Yes [] No If yes, where and on what date? [facility] END OF 12/28 # of pregnancies? ____NONE # of live births? Mammogram? [] N/A [] Yes [x] No If yes, where and on what date? documented in this encount er Plan of Treatment Not on filedocumented as of this encounter Visit Diagnoses Not on filedocumented in this encounter
--- OUTSIDE RECORDS SUMMARY | ~2020-05-11 | XMS | Encounter Summary ---
Demographics + + + | Address | [address] | | | [place] [address] | + + + | Home Phone [...] [place], [place] | | | | | [address] | | + + + + + | Lydia Palm | ECON | [place], [place] | | | | | [address] | | + + + + + | melinda METZ" | ECON | [place], [place] | | | [place] | | [address] | | + + + + + | Jose C Oconnor | ECON | [address] | | | | | [place] | | | | | [address] | | + + + + + Care Team Providers + +------+ + | Care Vamp Maker Name | Role | Phone | [...] | | | | | disease) | [place] | | | | | | ([facility]) | [address] | | | | | | Procedures | Phone: | | | | | | VAS Ankle | [phone] | | | | | | Brachial | Fax: | | | | | | Index | [phone] | | | | | | Resting [...] | | | | | disease) | [place] | | | | | | (HCC) | [address] | | | | | | Procedures | Phone: | | | | | | VAS Ankle | [phone] | | | | | | Brachial | Fax: | | | | | | Index | [phone] | | | | | | Resting | | | +--------+--------+ + + + + Encounter Details +--------+ + + + + | Date | Type | Department | Care Team | Description | +--------+ + + + + | 12/23/ | Hospital | [facility] | | PAD (peripheral | | 2020 | Encounter | VASCULAR SURGERY | | artery disease) | | | | ULTRASOUND [address] | | ([facility]) | | | | [address] | | | | | | [place] | | | | | | [address] | | | | | | [phone] | | | +--------+ + + + [...] + +--------+ + + + | VAS ANKLE BRACHIAL | Routin | 12/23/2019 | PAD (peripheral | Results for this | | INDEX RESTING | e | 3:43 PM | artery disease) | procedure are in the | | | | PST | ([facility]) | results section. | + +--------+ + + + documented in this encounter Results VAS Ankle Brachial Index [...] + | PAD (peripheral artery disease) (HCC) Unspecified disorders of arteries and | | arterioles | + + documented in this encounter
--- OUTSIDE RECORDS SUMMARY | ~2020-05-11 | XMS | Encounter Summary ---
Demographics + + + | Address | [address] | | | [place] [address] | + + + | Home Phone [...] [place], [place] | | | | | [address] | | + + + + + | Lydia Palm | ECON | [place], [place] | | | | | [address] | | + + + + + | melinda METZ" | ECON | [place], [place] | | | [place]ba | | [address] | | + + + + + | Jose C Oconnor | ECON | [place] | | | | | [place] | | | | | [address] | | + + + + + Care Team Providers + +------+ + | Care Pneumatic Tool Operator Name | Role | Phone | [...] + + | 01/07/ | Emergency | [facility] | Natalio Wyatt, | Torticollis, acute | | 2017 | | [facility] | [address] | (Primary Dx) | | | | CENTER [address] | [facility] [place] | | | | | [place], [place] | [place] [address] | | | | | [address] | [phone] | | | | | [phone] | | | +--------+ + + + [...] sent through Care Everywhere.TORTICOLLIS (WR Y NECK) (POLISH)documented in this encounter Medications at Time of [...] +---------+--------+ + documented as of this encounter ED Notes Kameron Boss RN - 01/07/2017 9:52 PM PSTPt dc form er ambulatory with famly/ instruct ions given to pt both verbally and in writting. Pt signed indicating that she recieved a co py of her instructions in witting at time of dc. Carmen Santos CNA - 01/07/2017 7:26 PM PSTCorrine from MRI called back and is on her way in. Natalio Villagran MD - 01/07/2017 6:58 PM PST [facility] Ramona Oconnor Emergency Department Encounter Note [address] [place] [id number] PCP:Juan F Whitley DO [phone] CHIEF COMPLAINT Chief Complaint Patient presents with Neck Pain HPI Ramona Oconnor is a 36 y.o. female who presents to the emergency department with ne ck pain. This patient has had neck pain since Friday. She states she woke up with it. The pain is on the right side of her neck. She thought maybe she just slept wrong on it. Desp ite resting for a couple days the pain was not improving. She actually felt like the pain w as getting worse. It hurts when she moves her neck in certain positions. No injury. No fe mamta. She's had a mild cough. No cold symptoms. She is a peritoneal dialysis patient and d oes peritoneal dialysis every night. 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 She is accompanied by 2 family members but is providing her own history. No prior significant neck problems. She said this morning she had numbness and tingling in both arms and legs. That has resolve d. No neurologic symptoms at this time. She took [address] her way to the ER . This was prescribed by her doctor at [facility]. PAST MEDICAL HISTORY Past Medical History Diagnosis Date Disorder of kidney and ureter unknown cause for renal failure. Hypertension SURGICAL HISTORY Past Surgical History Procedure Laterality Date Abdomen surgery 10/27/2016 PD cath CURRENT MEDICATIONS Discharge Medication List as of 01/07/2017 21:32 CONTINUE these medications which have NOT CHANGED Details furosemide (LASIX) 20 mg tablet Take 20 mg by mouth 2 times daily.Historical Med HYDROcodone-acetaminophen (NORCO) 5-325 mg per tablet Take 1 tablet by mouth every 6 hours as needed for Pain.Historical Med lisinopril (PRINIVIL, ZESTRIL) 10 mg tablet Take 10 mg by mouth 2 times daily.Historical Me d omeprazole (PRILOSEC) 20 mg capsule Take 20 mg by mouth every morning (before breakfast).Hi storical Med ondansetron (ZOFRAN ODT) 4 mg disintegrating tablet Take 4 mg by mouth every 8 hours as nee ded for Nausea.Historical Med ALLERGIES No Known Allergies FAMILY HISTORY Family History Problem Relation Age of Onset Cancer Maternal Grandmother breast ca Kidney disease Paternal Grandfather renal falure SOCIAL HISTORY Social History Social History Marital Status: Spouse Name: N/A Number of Children: N/A Years of Education: N/A Social History Main Topics Smoking status: Never Smoker Smokeless tobacco: None Alcohol Use: No Drug Use: No Sexual Activity: Not Asked Other Topics Concern None Social History Narrative None REVIEW OF SYSTEMS All systems reviewed and found negative except what is in the HPI PHYSICAL EXAM VITAL SIGNS: BP 145/90 mmHg | Pulse 80 | Temp(Src) 36.7 C (98 F) (Oral) | Resp 16 | Ht 1.6 m (5' 3") | Wt 87.091 kg (192 lb) | BMI 34.02 kg/m2 | SpO2 100% | LMP 11/28/2016 Constitutional: Well developed, Well nourished, moderate acute distress, Non-toxic appeara nce. HENT: Normocephalic, Atraumatic, Bilateral external ears normal, Tympanic membranes normal , Mucous membranes are moist, Nasal mucosa is normal. Oropharynx is clear. Eyes: Conjunctiva normal, No discharge. Palpebral conjunctiva are pink. Neck: Limited range of motion due to pain. No point tenderness. No crepitus. No soft tis sylvie swelling. Respiratory: Clear to auscultation bilaterally, No respiratory distress, No wheezing Chest: Non tender, no signs of trauma Cardiovascular: Normal heart rate, Normal rhythm GI: Soft, Non tenderness, No peritoneal signs, No masses, peritoneal dialysis catheter in place. No surrounding erythema, induration, or exudate. Extremities: Warm and well perfused, no edema, no joint swelling or deformity. Good ROM. Back: No CVAT, No tenderness of the thoracic or lumbar spine. Skin: Warm, Dry, No erythema, No induration, No rash. Neurologic: Alert & oriented x 3, No focal motor or sensory deficits. Speech is clear. G ait is normal. RADIOLOGY Cervical MRI: No significant disease. Mild degenerative changes. ED COURSE & MEDICAL DECISION MAKING Pertinent Labs & Imaging studies reviewed. (See chart for details) The patient was seen and examined shortly after arriving in the emergency department. Hist ory and physical were obtained, vital signs were noted. No objective neurologic findings. Patient's self-reported neurologic findings. MRI was done and is unremarkable for acute pat hology. Patient is reassured. Outpatient treatment. FINAL IMPRESSION 1. Torticollis, acute PLAN Follow-up Information Follow up with your doctor. Schedule an appointment as soon as possible for a visit in [address] [place] [address]. Discharge Medication List as of 01/07/2017 21:32 Natalio Wyatt MD 01/07/17 2254 docume nted in this encounter Miscellaneous Notes ED Triage Notes - Amandeep Cheek RN - 01/07/2017 5:47 PM PSTPatient reports; Since yesterday Denies fever but has chills and neck pain increased when pushing or pulling anything. FYI; on light duty at work d/t chronic illness of PD and renal failure. Electronically sign ed by Amandeep Cheek RN at 01/07/2017 5:48 PM PSTdocumented in this encounter Plan of [...] reported to the ER staff by the [facility] radiologist on January 07, | | | 2016 at 2222 hours. Dictated and Signed by: [...] DISEASE AND | | MILD ANTEROLISTHESIS AT [id number] SIGNIFICANT STENOSIS.2. TINY RIGHT THYROID | | CYSTS/NODULES. CONSIDER SONOGRAPHIC FOLLOW-UP.Preliminary results of this study were | | [facility] at 2222 | [...] reported to the ER staff by the [facility] | |radiologist on January 07, 2017 at 2222 hours. | | | |Dictated and Signed by: Chetan Melchor MD | | Electronically signed: 01/08/2017 7:45 AM | + + + +---------+ + + | Performing | Address | City/State/[facility] | Phone Number | | Organization | [...] | | Right | | 01/07/17 at 2019, For 1 dose | | PM PST | | | | + +--------+ +--------+------+ + +---+---+ | | | +---+---+ documented in this encounter
--- OUTSIDE RECORDS SUMMARY | ~2020-05-11 | XMS | Encounter Summary ---
Demographics + + + | Address | [address] | | | [place] [address] | + + + | Home Phone [...] [place], [place] | | | | | [address] | | + + + + + | Lydia Palm | ECON | [place], [place] | | | | | [address] | | + + + + + | melinda METZ" | ECON | [place], [place] | | | [place] | | [address] | | + + + + + | Jose C Oconnor | ECON | [place] | | | | | [place] | | | | | [address] | | + + + + + Care Team Providers + +------+ + | Care Group Tester Name | Role | Phone | [...] | | | | | | | ([facility]) | | | | | [...] + + | 12/16/ | Anesthesia | [facility] | Julian Olivares | | | 2020 | Event [facility] | [address] | | | | | [address] | [address] [place] | | | | | [place] [address] | [place] [address] | | | | | [place], [place] | [phone] | | | | | [address] | | | | | | [phone] | | | +--------+ + + + [...] | 12/16/191656 by | | eral | [id number] catheter system; | Jordyn Hyde RN | [...] encounter [place] Notes Anesthesia Postprocedure Evaluation - Julian Olivares CRNA - 12/16/2019 2:57 PM PST ANESTHESIA POSTANESTHESIA EVALUATION Ramona Oconnor 39 y.o. female 1980 [id number] Procedure(s) INSERTION AV FISTULA or GRAFT CREATION (Right Arm Upper) Cooperates? Yes Mental Status Performs simple tasks. Respiratory Satisfactory - Airway patent (self maintained). Cardiovascular Satisfactory - Blood pressure and heart rate acceptable Temperature Satisfactory Pain Satisfactory N/V Control Satisfactory Hydration Satisfactory - No signs of dehydration Adverse Events ADVERSE EVENTS: No adverse events Vitals Value Taken Time Temp 36.6 C (97.8 F) 12/16/2019 2:52 PM Pulse 74 12/16/2019 2:52 PM Resp 20 12/16/2019 2:52 PM BP 109/68 12/16/2019 2:52 PM Arterial Line BP Arterial Line BP 2 SpO2 100 % 12/16/2019 2:52 PM Electronically signed by Julian Olivares CRNA 12/16/2019 2:[address] [facility]ron[facility] signed by Juilan Olivares CRNA at 2:58 PM PSTAnesthesia Procedure Notes - Julian Olivares CRNA - 12/16/2019 1:25 PM PSTAssociated Order(s): AirwayAnesthesia Airway Placement 12/16/2019 1:09 PM Preprocedure check: patient identified, airway equipment checked, patient reassessment prio r to induction, airway assessed, oxygen and suction Mask ventilation: easy Attempts: 1 Airway type: laryngeal mask Size: 4 Route, reference point: center of mouth Tube secured with: adhesive tape Trauma: none Tube placement verification: bilateral chest rise and carbon dioxide detection Performing provider: Julian Olivares CRNA Authorizing provider: Julian Olivares CRNA Please see intraoperative grid for any additional medication documentation. nesthesia Pr ocedure Notes - Julian Olivares CRNA - 12/16/2019 1:00 PM PSTAssociated Order(s): Ne rve BlockPerineural Procedure Note 12/16/2019 12:37 PM Nerve block: supraclavicular-brachial plexus Continuous block with catheter: No Indication: postoperative analgesia and surgical anesthesia Preprocedure check: patient identified, procedure and rescue equipment checked, preevaluati on including airway assessment complete, risks/benefits discussed, consent obtained, timeout performed, reassessment prior to procedure, monitors applied and supplemental oxygen applie d Patient position: sitting Preparation: chlorhexidine/isopropyl alcohol, 1% lidocaine infiltration Introducer used: no Local anesthetic infiltration volume in ml: 1 mL Technique: ultrasound Needle: short-bevel Needle size: 20 g Needle length: 4 in Depth of nerve/plexus: 2 cm Medication administered through: needle and incremental injection Negative findings: no blood aspirated and no CSF Attempts: 1 Ease of procedure: easy Comments: .INTERSCALENE NERVE BLOCK WITHOUT CATHETER Surgeon request block for intraoperative anesthesia and post op pain control. Shoulder prepped on surgical side. Brachial plexus identified by at the clavicle and following up. Lidocaine local on the skin. Needle advanced in plane from superiorly lateral posterior to inferior medial with ultrasou nd visualization. Local mixture injected around the brachial plexus or when nerve twitch noted. Patient tolerated block well and no catheter was placed. Medications Administered Mepivacaine (PF) (POLOCAINE) 2% Perineural, 10 mL ropivacaine (NAROPIN) 5 mg/mL (0.5%) Perineural, 10 mL Date/Time: 12/16/2019 12:37 PM Please see anesthesia record or flowsheet for vital sign documentation and see anesthesia r ecord or MAR for additional medication documentation. Performing provider: Julian Olivares CRNA Authorizing provider: Julian Olivares CRNA nesthesia Pr eprocedure Evaluation - Julian Olivares CRNA - 12/16/2019 8:23 AM PSTFormatting of t his note might be different from the original. ANESTHESIA PREANESTHESIA EVALUATION Ramona Oconnor 39 y.o. female 1980 [id number] Procedure(s): INSERTION AV FISTULA (Right Arm Upper) ECG reviewed. Labs reviewed. (-) perioperative beta-nano/statin not given/taken, reason : not applicable/Not taking Beta-Nano. Review of Systems / Med History Anesthesia History Unexplained hypotensive event during GA possibly d/t low fluid volume.. (+) previous surgery or anesthesia. Family Anesthesia History Family Anesthesia Negative except where noted below. Cardiovascular Exercise tolerance >4 METS (+) hypertension and essential (+) Dysrhythmias: . Pulmonary (+) sleep apnea.(+) tobacco use.(+) ex-smoker: 2005. Gastrointestinal/Hepatic (+) diverticulitis. (+) acid reflux: without esophagitis and well controlled. Renal (+) chronic renal insufficiency. (+) hemodialysis dialysis type. Endocrine (+) obesity: BMI (30-39) Hematology/Other (+) anemia. Cancer Negative except where noted below. Obstetrics Negative except where noted below. Pediatric History Negative except where noted below. Neuromuscular (+) chronic pain. Psychology (+) substance abuse, other, Marijuana. Additional Comments: Peritonitis associated with peritoneal dialysis (HCC) Abnormal EKG Anemia in ESRD (end-stage renal disease) (HCC) Cold intolerance Cyst of right ovary Diverticulitis End-stage renal disease (HCC) Gastroesophageal reflux disease without esophagitis Hyperphosphatemia Ovarian mass, right Secondary hyperparathyroidism Infection of arteriovenous dialysis fistula Wound, surgical, nonhealing AV graft malfunction S/P arteriovenous (AV) graft repair Leukocytosis Shock Bleeding from dialysis shunt Obesity (BMI 30-39.9) Infected prosthetic vascular graft Echo 08-27-19 Left Ventricle Normal size left ventricle. There is normal left ventricular wall thickness. The left ventricular ejection fraction is 65%. Right Ventricle Normal size right ventricle. Normal right ventricular wall thickness. Normal right ventricular systolic function. Left Atrium The left atrium is not well visualized. Right Atrium The right atrium is not well visualized. Aortic Valve Normal aortic valve structure. The aortic valve appears tricuspid. No aortic regurgitation. Mitral Valve Normal mitral valve structure. No mitral regurgitation. Tricuspid Valve Normal tricuspid valve structure. No tricuspid regurgitation. Pulmonic Valve The pulmonic valve is not well visualized. No pulmonic regurgitation. Pericardium Normal pericardium without effusion. Physical Exam Airway MP II, TM >3 FB, Mouth opening >2 FB. Neck: full ROM, extends >30 degrees. Jaw protrus ion normal. Facial hair present: No Dental grossly normal except where noted below. CV cardiovascular normal Rhythm regular. Rate normal. Pulm Clear to auscultation bilaterally. Neuro grossly normal. Anesthesia Plan ASA: 4 Type: Regional. Supraclavicular block with sedation and GA as backup discussed and agreed to. Induction: Intravenous. Potential problems: None anticipated. Monitors: Standard ASA monitors. Postop Pain Management: Consent statement: heart problems, infection, nausea, perioperative CV events, respiratory events, failed or i nadequate block, nerve damage, intravascular injection Consenting person understands and agrees to proceed. Electronically Signed by: Julian Olivares CRNA ESig date/time: 12/16/2019 12:11 PM documented in this encounter Miscellaneous Notes Anesthesia Post-op Handoff - Julian Olivares CRNA - 12/16/2019 2:56 PM PSTFormattin g of this note might be different from the original. ANESTHESIA HANDOFF NOTE Ramona Oconnor 39 y.o. female 1980 [id number] INSERTION AV FISTULA or GRAFT CREATION (Right Arm Upper) HANDOFF NOTE Handoff Protocol Used: [...] receiving team Patient Location: Phase I Condition: responds to stimuli and sedated Airway/O2: face mask with O2 Multimodal analgesia: multimodal analgesia used between 6 hours prior to anesthesia start t o PACU discharge Two or more LAISHA mitigation strategies used: perioperative obstructive sleep apnea intervent ions applied The significant anesthesia concerns and VS in Epic were reviewed with the receiving team. Julian Olivares CRNA 12/16/2019 2:[address] [facility]lectronically signed by Julian Olivares CRNA at 2:56 PM PSTdocumented in this encounter Plan of [...] | | | | Mixture PRN, Starting [facility] 12/16/19 | | | | | [...] lidocaine 2% injection Other, | Given | 02/06/20 | 80 mg | | | | [...]
--- OUTSIDE RECORDS SUMMARY | ~2020-05-11 | XMS | Encounter Summary ---
Demographics + + + | Address | [address] | | | [place] [address] | + + + | Home Phone [...] [place], [place] | | | | | [address] | | + + + + + | Lydia Palm | ECON | [place], [place] | | | | | [address] | | + + + + + | melinda METZ" | ECON | [place], [place] | | | reba | | [address] | | + + + + + | Jose C Oconnor | ECON | [place] | | | | | [place] | | | | | [address] | | + + + + + Care Team Providers + +------+ + | Care Electronics Maintenance Technician Name | Role | Phone | + +------+ + | Juan F Whitley DO | PCP | | + +------+ + Encounter Details +--------+ + + + + | Date | Type | Department | Care Team | Description | +--------+ + + + + | 01/05/ | Hospital | [facility] | Salvador Ruiz, | Diverticulitis; | | 2019 - | Encounter | [facility] [address] | [address] | Hypokalemia; ESRD on | | | | [address] | [place] [address] | peritoneal dialysis | | 01/09/ | | [place], [place] | [phone] | ([facility]); End-stage | | 2018 | | [address] | | renal disease on | | | | [phone] | | peritoneal dialysis | | | [...] + documented in this encounter Discharge Summaries Jero Smart MD - 01/09/2019 10:14 AM PSTFormatting of this note might be different f rom the original. Discharge Summaries by Jero Smart MD at 01/09/19 1014 Author: Jero Smart MD Service: Hospitalist Author Type: Physician Filed: 01/09/19 1017 Date of Service: 01/09/19 1014 Status: Signed Casework Supervisor: Jero Smart MD (Physician) [facility]: Hospitalist Physician Discharge Summary Pt: Ramona Oconnor AGE/SEX: 38 y.o. female ROOM: [facility]/431-1 PCP: JUAN F WHITLEY : 1980 Admit date: 01/05/2019 Discharge date and time: 01/09/2019 10:14 AM Admitting Physician: Salvador Ruiz MD Discharge Physician: Jero Smart MD Consults: DR. Monte Primary Discharge [...] displayed. Recent Labs Lab 01/09/19 0546 01/08/19 0501/07/19 0518 MG 2.0 2.0 2.1 Recent Labs [...] Refills: 0 Commonly known as: NORVASC ergocalciferol 87932 units capsule Refills: 0 Commonly known as: [...] if needed. Follow-[place]: [place] [address] [place] [address] In 1 week Santos Chi MD [address] [place] [address] [phone] In 1 week Discharge took more than 35 minutes, to include final examination, discussion of admission, and preparation of prescriptions, instructions for ongoing care, follow up and dictation of summary. Signed: JERO SMART MD 01/09/2019 10:14 AM Dictation software, Master The Gap, used which may contain error for similar [...] Progress Note by Britt Hawkins RN at 01/09/191106 Author: Britt Hawkins RN Service: (none) Author Type: Registered Nurse Filed: 01/09/191107 Date of Service: 01/09/191106 Status: Signed Casework Supervisor: Britt Hawkins RN (Registered Nurse) Discharge teaching done, instructions given. Pt states understanding. Medications discussed , no questions or concerns. Britt Hawkins RN Linden Kincaid MD - 01/09/2019 10:52 AM PSTFormatting of this note might be different from the orig inal. Progress Notes by Linden Monte MD at 01/09/191051 Author: Linden Monte MD Service: Nephrology Author Type: Physician Filed: 01/12/19 0028 Date of Service: 01/09/191051 Status: Signed Casework Supervisor: Linden Monte MD (Physician) [facility]: NEPHROLOGY PD/ Progress Note Ramona Oconnor 38 y.o. [id number] 431/431-1 [facility] 4 days Patient with [...] 10/25/15 showed normal sized kidneys. 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 GERD (gastroesophageal reflux disease) Hypercalcemia 09/07/2017 Hyperphosphatemia 10/28/2015 Hypocalcemia 10/28/2015 Hypokalemia 06/04/2017 Itching 10/28/2015 Metabolic acidosis 10/28/2015 Obesity Peritonitis associated with peritoneal dialysis (HCC) 01/24/2017 Peritonitis due to infected peritoneal dialysis catheter (HCC) 12/08/2018 Secondary hyperparathyroidism (HCC) Uremia 10/28/2015 Past Surgical History Procedure Laterality Date ESOPHAGOGASTRODUODENOSCOPY N/A 09/10/2017 Procedure: ESOPHAGOGASTRODUODENOSCOPY; Surgeon: Beena Peters MD; Location: [facility]; Service: Gastroenterology; Laterality: N/A; PERITONEAL CATHETER INSERTION N/A 10/28/2015 Procedure: LAPAROSCOPIC - PERITONEAL DIALYSIS CATH INSERTION; Surgeon: Mundo Ramos MD; Lo cation: [facility] MAIN OR; Service: Vascular; Laterality: [...] Table: I/O last 3 completed shifts: In: 63813 [P.O.:1250; I.V.:1154; Other:9969] Out: 06268 [Other:89351] Weight change: -0.6 kg (-1 lb 5.2 [...] earlier and charting completed later Dictation software, Master The Gap, used which may contain error for similar sounding words even af ter review. Personal communication requested for any clarification. Portions of my notes may have been carried over for continuity of care. onversion Transaction, Provider Unknown - 01/09/2019 7:06 AM PSTFormatting of this note might be different from t brant original. Nurse Progress Note by Kathie Harvey RN at 01/09/19705 Author: Kathie Harvey RN Service: (none) Author Type: Registered Nurse Filed: 01/09/19705 Date of Service: 01/09/19705 Status: Signed Casework Supervisor: Kathie Harvey RN (Registered Nurse) Patient bed in [...] 01/08/191837 Date of Service: 01/08/191837 Status: Signed Casework Supervisor: Judit Mcgraw RN (Registered Nurse) End of shift chart check complete. Judit Mcgraw RN 01/08/2019 6:38 PM Linden Kincaid MD - 01/08/2019 4:59 PM PSTFormatting of this note might be different from the orig inal. Progress Notes by Linden Monte MD at 01/08/191658 Author: Linden Monte MD Service: Nephrology Author Type: Physician Filed: 01/08/19 1725 Date of Service: 01/08/191658 Status: Signed Casework Supervisor: Linden Monte MD (Physician) [facility]: NEPHROLOGY PD/ Progress Note Ramona Oconnor 38 y.o. [id number] 431/431-1 female [facility] Day: LOS: 3 days Patient with PMH as listed below admitted with left sided abd pain / divertuculitis Nephrology consulted for evaluation and management of ESRD CHRONIC SEVERE ASSOCIATED WITH FLUID ELECTROLYTE IMBALANCES Assess need for Pd/uf SUBJECTIVE Patient seen and examined cristina pd well SAYS FEEL WEAK, still c/o left sided abdominal pain 10, nausea DENIES CHEST PAIN, SOB, VOMITING, DIARRHEA, [...] 10/25/15 showed normal sized kidneys. 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 GERD (gastroesophageal reflux disease) Hypercalcemia 09/07/2017 Hyperphosphatemia 10/28/2015 Hypocalcemia 10/28/2015 Hypokalemia 06/04/2017 Itching 10/28/2015 Metabolic acidosis 10/28/2015 Obesity Peritonitis associated with peritoneal dialysis (HCC) 01/24/2017 Peritonitis due to infected peritoneal dialysis catheter (HCC) 12/08/2018 Secondary hyperparathyroidism (HCC) Uremia 10/28/2015 Past Surgical History Procedure Laterality Date ESOPHAGOGASTRODUODENOSCOPY N/A 09/10/2017 Procedure: ESOPHAGOGASTRODUODENOSCOPY; Surgeon: Beena Peters MD; Location: [facility]; Service: Gastroenterology; Laterality: N/A; PERITONEAL CATHETER INSERTION N/A 10/28/2015 Procedure: LAPAROSCOPIC - PERITONEAL DIALYSIS CATH INSERTION; Surgeon: Mundo Ramos MD; Lo cation: [facility] OR; Service: Vascular; Laterality: [...] Table: I/O last 3 completed shifts: In: 10545 [P.O.:1600; I.V.:1943; Other:] Out: [Other:] Weight change: [...] earlier and charting completed later Dictation software, Master The Gap, used which may contain error for similar sounding words even af ter review. Personal communication requested for any clarification. Portions of my notes may have been carried over for continuity of care. Jero Padilla MD - 01/08/2019 10:54 AM PST Progress Notes by Jero Smart MD at 01/08/19 1054 Author: Jero Smart MD Service: Hospitalist Author Type: Physician Filed: 01/08/19 0983 Date of Service: 01/08/19 1054 Status: Signed Casework Supervisor: Jero Smart MD (Physician) [facility]: Hospitalist Progress Note Pt: Ramona Oconnor AGE/SEX: 38 y.o. female ROOM: [address] [place] [address] : 1980 PCP: JUAN F WHTILEY ADMIT DATE: 01/05/2019 TODAY'S DATE: 01/08/2019 Hospital [...] 01/08/19 0650 Gross per 24 hour Intake 78458 ml Output 89826 ml Net 1092 ml Patient Vitals for [...] I agree with the following nutritional recommendations: JERO SMART MD, FACP 01/08/2019 10:54 AM Dictation software, Master The Gap, used which may contain error for similar [...] 01/08/19638 Date of Service: 01/08/19638 Status: Signed Casework Supervisor: Felicitas Conklin RN (Registered Nurse) End of shift chart check complete. onver patric Transaction, Provider Unknown - 01/07/2019 6:24 PM PST Nurse Progress Note by Heraclio Clemons RN at 01/07/191823 Author: Heraclio Clemons RN Service: (none) Author Type: Registered Nurse Filed: 01/07/191824 Date of Service: 01/07/191823 Status: Signed Casework Supervisor: Heraclio Clemons, RN (Registered Nurse) End of shift review completed. HERACLIO CLEMONS RN 01/07/2019 6:25 PM Linden Kincaid MD - 01/07/2019 6:00 PM PSTFormatting of this note might be different from the orig inal. Progress Notes by Linden Monte MD at 01/07/19 1800 Author: Linden Monte MD Service: Nephrology Author Type: Physician Filed: 01/12/19 0023 Date of Service: 01/07/19 1800 Status: Signed Casework Supervisor: Linden Monte MD (Physician) [facility]: NEPHROLOGY PD/ Progress Note Ramona Oconnor 38 y.o. [id number] 431/431-1 female [facility] Day: LOS: 2 days Patient [...] 10/25/15 showed normal sized kidneys. 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 GERD (gastroesophageal reflux disease) Hypercalcemia 09/07/2017 Hyperphosphatemia 10/28/2015 Hypocalcemia 10/28/2015 Hypokalemia 06/04/2017 Itching 10/28/2015 Metabolic acidosis 10/28/2015 Obesity Peritonitis associated with peritoneal dialysis (HCC) 01/24/2017 Peritonitis due to infected peritoneal dialysis catheter (HCC) 12/08/2018 Secondary hyperparathyroidism (HCC) Uremia 10/28/2015 Past Surgical History Procedure Laterality Date ESOPHAGOGASTRODUODENOSCOPY N/A 09/10/2017 Procedure: ESOPHAGOGASTRODUODENOSCOPY; Surgeon: Beena Peters MD; Location: [facility]; Service: Gastroenterology; Laterality: N/A; PERITONEAL CATHETER INSERTION N/A 10/28/2015 Procedure: LAPAROSCOPIC - PERITONEAL DIALYSIS CATH INSERTION; Surgeon: Mundo Ramos MD; Lo cation: [facility]; Service: Vascular; Laterality: [...] Table: I/O last 3 completed shifts: In: 73271 [P.O.:3150; I.V.:1015; Other:36046] Out: 95418 [Other:46407] Weight change: Examination: Family at bedside APPEARANCE: [...] UNDERSTANDING LINDEN MONTE MD 01/07/2019 JUAN F QUAEMPTS Seen earlier and charting completed later Dictation software, Master The Gap, used which may contain error for similar sounding words even af ter review. Personal communication requested for any clarification. Portions of my notes may have been carried over for continuity of care. onversion Transaction, Provider Unknown - 01/07/2019 11:59 AM PSTFormatting of this note might be different from t he original. Case Management by Gracia Gonzalez RN at 01/07/19 8210 Author: Gracia Gonzalez RN Service: (none) Author Type: Registered Nurse Filed: 01/07/19 130 Date of Service: 01/07/19 1159 Status: Signed Casework Supervisor: Gracia Gonzalez RN (Registered Nurse) 01/07/19 1234 Discharge Planning Evaluation Admitting Diagnosis diverticulitis Readmission [...] for diverticulitis. She was just discharged from [facility] on 12/27/18 for peritonitis. Patient has ESRD and get peritoneal dialysis. Denies use of home oxygen, blood thinners, or home care services. She is a member of the [facility] [place]. Her contact there is Lorna at [phone]. She also has a CM with [employer] (Clarita [phone]) Patient's PCP is: JUAN F WHITLEY Patient's insurance: [employer]; Medicare Coverage concerns: no Medication coverage/concerns: no concerns Community resources utilized / needed: TBD Assistance in transportation: spouse to transport Identification of any specific education / training: TBD Barriers to Discharge / Alternative housing needed: not at this time Anticipated DCP: home GRACIA GONZALEZ RN Case Management [phone] Jero Dawson MD - 01/07/2019 9:50 AM PST Progress Notes by Jero Smart MD at 01/07/1950 Author: Jero Smart MD Service: Hospitalist Author Type: Physician Filed: 01/07/19 0954 Date of Service: 01/07/19949 Status: Signed Casework Supervisor: Jero Smart MD (Physician) [facility]: Hospitalist Progress Note Pt: Ramona Oconnor AGE/SEX: 38 y.o. female ROOM: [address] [place] [address] : 1980 PCP: JUAN F WHITLEY ADMIT [...] 01/07/19 0645 Gross per 24 hour Intake 01827 ml Output 24674 ml Net 2724 ml Patient Vitals for [...] 7.85 Recent Labs Lab 01/07/1951701/06/1952801/05/19 0542 01/05/19 005 NA 134* 134* 138 143 K 2.6* 2.7* 2.9* 2.8* CL 98* 97* 96* 99 CO2 23 23 23 23 BUN 34* 39* 41* 37* CREATININE 14.0* 15.2* 16.7* 15.32* PROT 5.4* 6.0* -- 6.8 BILITOT 0.3 0.4 -- 0.4 ALT 36 50 -- 53 AST 17 26 -- 55* Phosphorus: Lab Results Component Value Date PHOS 8.8 (H) 01/06/2019 Recent Labs Lab 01/07/1951701/06/1952801/05/19 0542 MG 2.1 2.3 2.4 Recent Labs [...] I agree with the following nutritional recommendations: JERO SMART MD, FACP 01/07/2019 9:50 AM Dictation software, Master The Gap, used which may contain error for similar [...] 01/07/19599 Date of Service: 01/07/19599 Status: Signed Casework Supervisor: Felicitas Conklin RN (Registered Nurse) End of shift chart check complete. onver patric Transaction, Provider Unknown - 01/06/2019 7:12 PM PST Nurse Progress Note by Adonis Bonner RN at 01/06/191911 Author: Adonis Bonner RN Service: Nephrology Author Type: Registered Nurse Filed: 01/06/191913 Date of Service: 01/06/191911 Status: Signed Casework Supervisor: Adonis Bonner RN (Registered Nurse) PER PT SHE TOOK A SHOWER DURING THE DAY TODAY, AND AFTER THAT HER CHANGED THE DRESS ING ON THE PD CATH EXIT SITE. I REDRESSED THE PD CATH EXIT SITE PER POLICY. onver patric Transaction, Provider Unknown - 01/06/2019 6:02 PM PST Nurse Progress Note by Heraclio Clemons RN at 01/06/191801 Author: Heraclio Clemons RN Service: (none) Author Type: Registered Nurse Filed: 01/06/191801 Date of Service: 01/06/191801 Status: Signed Casework Supervisor: Heraclio Clemons RN (Registered Nurse) End of shift review completed. HERACLIO CLEMONS RN 01/06/2019 6:02 PM Jero Dawson MD - 01/06/2019 12:07 PM PST Progress Notes by Jero Smart MD at 01/06/19 1205 Author: Jero Smart MD Service: Hospitalist Author Type: Physician Filed: 01/06/19 1210 Date of Service: 01/06/191206 Status: Signed Casework Supervisor: Jero Smart MD (Physician) [facility]: Hospitalist Progress Note Pt: Ramona Oconnor AGE/SEX: 38 y.o. female ROOM: 431/431-1 : 1980 PCP: JUAN F WHITLEY ADMIT [...] 01/06/19 0740 Gross per 24 hour Intake 18486 ml Output 45293 ml Net 425 ml Patient Vitals for [...] Recent Labs Lab 01/06/19 0501/05/19 0542 01/05/19 0051 WBC 11.15* 14.70* 15.65* [...] Leukocytosis Anemia in ESRD (end-stage renal disease) ([facility]) Left lower quadrant pain Hyperphosphatemia Abnormal EKG [...] outpatient. Anemia in ESRD (end-stage renal disease) ([facility]) I will continue to monitor Abnormal EKG [...] I agree with the following nutritional recommendations: JERO SMART MD, FACP 01/06/2019 12:07 PM Dictation software, Master The Gap, used which may contain error for similar sounding words even af ter review. Personal communication requested for any clarification. Portions of this chart may have been copied from previous notes for continuity of care purp ose Linden Manzano MD - 01/06/2019 12:03 PM PST Progress Notes by Linden Monte MD at 01/06/191202 Author: Linden Monte MD Service: Nephrology Author Type: Physician Filed: 01/06/191208 Date of Service: 01/06/191202 Status: Signed Casework Supervisor: Linden Monte MD (Physician) [facility]: NEPHROLOGY PD/ Progress Note Ramona Oconnor 38 y.o. [id number] 431/431-1 female [facility] Day: LOS: 1 day Patient [...] 10/25/15 showed normal sized kidneys. 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 GERD (gastroesophageal reflux disease) Hypercalcemia 09/07/2017 Hyperphosphatemia 10/28/2015 Hypocalcemia 10/28/2015 Hypokalemia 06/04/2017 Itching 10/28/2015 Metabolic acidosis 10/28/2015 Obesity Peritonitis associated with peritoneal dialysis (HCC) 01/24/2017 Peritonitis due to infected peritoneal dialysis catheter (HCC) 12/08/2018 Secondary hyperparathyroidism (HCC) Uremia 10/28/2015 Past Surgical History Procedure Laterality Date ESOPHAGOGASTRODUODENOSCOPY N/A 09/10/2017 Procedure: ESOPHAGOGASTRODUODENOSCOPY; Surgeon: Beena Peters MD; Location: [facility]; Service: Gastroenterology; Laterality: N/A; PERITONEAL CATHETER INSERTION N/A 10/28/2015 Procedure: LAPAROSCOPIC - PERITONEAL DIALYSIS CATH INSERTION; Surgeon: Mundo Ramos MD; Lo cation: [facility]; Service: Vascular; Laterality: [...] 0 kg (0 lb) Examination: Family/ floor michelle acosta at bedside APPEARANCE: The patient is lying [...] earlier and charting completed later Dictation software, Master The Gap, used which may contain error for similar [...] 01/06/19605 Date of Service: 01/06/19605 Status: Signed Casework Supervisor: Felicitas Conklin RN (Registered Nurse) End of shift chart check complete. onver patric Transaction, Provider Unknown - 01/05/2019 7:01 PM PST Nurse Progress Note by Misty Martínez RN at 01/05/191900 Author: Misty Martínez RN Service: (none) Author Type: Registered Nurse Filed: 01/05/191900 Date of Service: 01/05/191900 Status: Signed Casework Supervisor: Misty Martínez RN (Registered Nurse) Chart check complete. onver patric Transaction, Provider Unknown - 01/05/2019 1:39 PM PST Nurse Progress Note by Misty Martínez RN at 01/05/19 1339 Author: Misty Martínez RN Service: (none) Author Type: Registered Nurse Filed: 01/05/19 1340 Date of Service: 01/05/19 2939 Status: Signed Casework Supervisor: Misty Martínez RN (Registered Nurse) Report received from MICHELLE Pompa. Assumed care of the patient at this time. Per Peña, Dr. Smart is aware of soft BP's. Encourage oral intake. MISTY MARTÍNEZ RN onver patric Transaction, Provider Unknown - 01/05/2019 6:20 AM PST Pharmacy Note by Felicitas Bender RPH at 01/05/19619 Author: Felicitas Bender RPH Service: Pharmacy Author Type: Pharmacist Filed: 01/05/19619 Date of Service: 01/05/19619 Status: Signed Casework Supervisor: Felicitas Bender RPH (Pharmacist) Clinical Pharmacy Note: Renal Monitoring Ht Readings from Last 1 Encounters: 12/24/18 1.575 m (5' 2") Wt Readings from Last 1 Encounters: 01/05/19 74.4 kg (164 lb) Serum creatinine: 15.32 mg/dL (H) 01/05/19 0051 Estimated creatinine clearance: 4.6 mL/min (A) ESRD [...] 01/05/19618 Date of Service: 01/05/19618 Status: Signed Casework Supervisor: Felicitas Bender RPH (Pharmacist) Zosyn Traditional Infusion [...] requiring PD. Patient is a transfer from [facility] ED. Patient receiv ed Zosyn while at [facility] at 01/04 at 17:54 per transfer paperwork. Due to patient's r enal dysfunction requiring PD, she is not a candidate for extended infusion Zosyn dosing. Will initiate Zosyn 2.25g q12H per renal protocol. Pharmacy will continue monitoring patient for appropriate dosing per renal function. 01/05/2019 6:16 AM Pharmacist: Felicitas Bender docume nted in this encounter H&P Notes Salvador Ruiz MD - 01/05/2019 2:27 AM PSTFormatting of this note might be different fro m the original. H&P by Salvador Ruiz MD at 01/05/19226 Author: Salvador Ruiz MD Service: Hospitalist Author Type: Physician Filed: 01/05/1936 Date of Service: 01/05/19226 Status: Addendum Casework Supervisor: Salvador Ruiz MD (Physician) Related Notes: Original Note by Salvador Ruiz MD (Physician) filed at 01/05/19726 [facility]: Hospitalist Admission History & Physical Date of Admission: 01/05/2019 Requesting Physician: , Emergency Department Reason for Admission: Acute mild diverticulitis. Elevated troponin. Abnormal ekg. constipa tion History Obtained From: patient, chart review, Quality of history: good CHIEF COMPLAINT: Patient presented to the Emergency Department by: [place] [facility] Chief Complaint Chief Complaint Patient presents with Abdominal Pain Xfer from [facility] d/t diverticulitis. HISTORY OF PRESENT ILLNESS The patient is 38 y.o. female with significant past medical history of End-stage renal dise ase on peritoneal dialysis, GERD, chronic nausea, essential hypertension. The patient was d ischarged recently after admission for culture negative peritoneal dialysis catheter associa medina peritonitis. The patient was treated with ceftazidime and vancomycin. At the time of d ischarge, she was given oral cefdinir and Flagyl which she has completed. In September 2017, patient underwent EGD which showed diffuse mild gastritis and she is compliant with PPI. S he was also diagnosed with an ovarian mass and outpatient followup with OB was recommended. The patient presented to [facility] Emergency Room with chief complaint of left lower taina drant abdominal pain for past six days. Maximum intensity of pain is 9. It was waxing an w aning. No fevers or chills. She had nausea and had multiple episodes of non bloody emesis daily. No report of GI bleed. Her peritoneal dialysis fluid is clear. She does not suspec t infection. She is constipated. Her last bowel movement was six days ago. She does not m lincoln urine and therefore oral intake is minimal. The patient initially attributed this pain to a stomach bug and was hoping it would pass. Since it was getting progressively worse, hardeep ny decided to come to the emergency room for evaluation. At the outside ER, she was given 2 liters of normal saline and laboratory workup showed white count of 16,000, H and H is 13 an d 40. MCV 87. Platelet count 4.7, neutrophil is 81%, present, 2% bands. CMP showed sodium of 137, potassium of 2.6, BUN of 38, creatinine of 15. Glucose 110 and b icarbonate was 19, anion gap was 29. Calcium 10, total protein was 8. Albumin was 4.4. To minh bili 0.7. AST 46, ALT 42. Alkaline phosphatase 73. GFR was 35. CT scan of the abdome n reported suspicion of mild diverticulitis induration in the left pelvis. No change in the appearance of this slightly enlarged and amorphous right ovary. The patient was given Zosy n IV fluid bolus and transferred to [facility] Emergency Room. At this time, the patient rates her pain as 9, but she is sleeping. REVIEW OF SYSTEMS Review of Systems CONSTITUTIONAL: No recent change in weight although she has lost some weight. Decreased a ppetite. No fevers or chills. HEENT: Denies headache, vertigo, dysphagia, thrush, aspiration. NECK: No neck pain or neck stiffness. LUNGS: No pleuritic chest pain, cough, hemoptysis, shortness of breath, wheezing. HEART: No prior history of coronary artery disease. Denies any chest pain, arm pain, jaw pain, interscapular pain. Denies any pleuritic pain. ABDOMEN: History of GERD present and previous diverticulitis, present, recent culture nega tive peritonitis secondary to PD catheter. Now constipated. No report of GI bleed. GENITOURINARY: No dysuria. Does not make urine. NEUROLOGIC: No history of TIA, strokes, or seizures. No new focal neurological symptoms, motor weakness, paresthesias. PSYCHIATRIC: Anxiety and depression, not suicidal. SKIN: No rash. Past Medical History Diagnosis Date Diverticulosis GERD (gastroesophageal reflux disease) Hypercalcemia 09/07/2017 Hyperphosphatemia 10/28/2015 Hypocalcemia 10/28/2015 Itching 10/28/2015 Metabolic acidosis 10/28/2015 Obesity Peritonitis associated with peritoneal dialysis (HCC) 01/24/2017 Uremia 10/28/2015 Past Surgical History Procedure Laterality Date ESOPHAGOGASTRODUODENOSCOPY N/A 09/10/2017 Procedure: ESOPHAGOGASTRODUODENOSCOPY; Surgeon: Beena Peters MD; Location: [facility]; Service: Gastroenterology; Laterality: N/A; PERITONEAL CATHETER INSERTION N/A 10/28/2015 Procedure: LAPAROSCOPIC - PERITONEAL DIALYSIS CATH INSERTION; Surgeon: Mundo Ramos MD; Lo cation: [facility] MAIN OR; Service: Vascular; Laterality: N/A; No Known Allergies Prior to Admission medications Medication Sig Start Date End Date Taking? Authorizing Provider amLODIPine (NORVASC) 2.5 MG tablet Take 2.5 mg by mouth daily. Yes Historical Provider cefdinir (OMNICEF) 300 MG capsule Take 1 capsule by mouth daily. 12/11/18 Yes Hilda Weiss r, DO clonazePAM (KLONOPIN) 0.5 MG tablet Take 0.25 mg by mouth daily as needed for Anxiety. Ye s Historical Provider HYDROcodone-acetaminophen (NORCO) 5-325 MG per tablet Take 1 tablet by mouth every 4 (four) hours as needed. 03/19/18 Yes Arias Singh MD LORazepam (ATIVAN) 1 MG tablet Take 1 mg by mouth every 8 (eight) hours as needed for Anxie ty. Yes Historical Provider omeprazole (PRILOSEC) 20 MG capsule Take 20 mg by mouth every morning before breakfast. Y es Historical Provider ondansetron (ZOFRAN) 8 MG tablet Take 1 tablet by mouth every 8 (eight) hours as needed for Nausea. 01/25/17 Yes Shad Ba MD promethazine (PHENERGAN) 25 MG tablet Take 25 mg by mouth every 6 (six) hours as needed for Nausea. Yes Historical Provider traZODone (DESYREL) 100 MG tablet Take 100 mg by mouth nightly. Yes Historical Provider zolpidem (AMBIEN) 5 MG tablet Take 1 tablet by mouth nightly as needed for Sleep (may repea t once in 1 hr if initial dose not effective). 03/09/18 Yes Lukas Lynn MD-R3 ALPRAZolam (XANAX) 0.5 MG tablet Take 0.5 mg by mouth nightly as needed for Sleep. Histo rical Provider ergocalciferol (DRISDOL) 86850 UNITS capsule Take 50,000 Units by mouth once a week. His torical Provider gentamicin (GARAMYCIN) 0.1 % ointment Apply topically 3 (three) times daily. 01/25/17 Yrn baltazar Ba MD metroNIDAZOLE (FLAGYL) 500 MG tablet Take 1 tablet by mouth every 12 (twelve) hours. 9 Hilda Edwards DO potassium chloride SA (K-DUR,KLOR-CON) 20 MEQ tablet Take 1 tablet by mouth daily. 03/09/18 03/09/19 Lukas Lynn MD-R3 sevelamer (RENVELA) 800 MG tablet Take 800 mg by mouth 3 (three) times daily with meals. Historical Provider Family History Problem Relation Age of Onset [...] on file Social History Narrative Lives in [facility], IADL, no falls, full code History Smoking Status Former Smoker Packs/day: 0.25 Quit date: 10/10/2015 Smokeless Tobacco Never Used History Alcohol Use No Comment: occ History Drug Use Types: Marijuana Comment: oil PHYSICAL EXAM Vital Signs: BP 130/86 | Pulse 88 | Temp 98.7 F (37.1 C) (Oral) | Resp 20 | Wt 74.4 kg (164 lb) | SpO2 100% | BMI 30.00 kg/m Physical Exam VITAL SIGNS: The patient is well-built, well-nourished, nontoxic, resting comfortably. Af ebrile and hemodynamically stable. HEENT: Atraumatic, normocephalic. Pupils equal and reactive to light, anicteric. Moist o ral mucosa. No thrush. NECK: Supple. No JVD. LUNGS: Clear to auscultation bilaterally. HEART: Regular rate and rhythm. No murmur. No gallop. No rub. No chest wall tenderness to palpation. ABDOMEN: Has PD catheter in place and left lower quadrant is mildly tender and soft. Solange l sounds are present. No guarding or rigidity. EXTREMITIES: Bilateral lower extremities no edema. DP are 2+ and symmetric. NEUROLOGIC: She is grossly nonfocal. PSYCHIATRIC: Normal mood and affect. No acute delirium. SKIN: No rash. DATA Results for orders placed or performed during the hospital encounter of 01/05/19 (from the past 24 hour(s)) CBC with differential Collection Time: 01/05/19 12:51 AM Result Value Ref Range WBC 15.65 (H) 3.80 - 11.00 K/uL RBC 4.24 3.70 - 5.10 M/uL HGB 12.7 11.3 - 15.5 g/dL HCT 37.4 34.0 - 46.0 % MCV 88.2 80.0 - 100.0 fl MCH 30.0 27.0 - 34.0 pg MCHC 34.0 32.0 - 35.5 g/dL RDW SD 49.4 37 - 53 fl PLT 337 150 - 400 K/uL MPV 8.7 fl DIFF TYPE AUTOMATED NEUTROPHILS 81.32 % LYMPHOCYTES 10.35 % MONOCYTES 7.85 % EOSINOPHILS 0.13 % BASOPHILS 0.35 % NEUTROPHILS ABS 12.72 (H) 1.90 - 7.40 K/uL LYMPHOCYTES ABS 1.62 1.00 - 3.90 K/uL MONOCYTES ABS 1.23 (H) 0.00 - 0.80 K/uL EOSINOPHILS ABS 0.02 0.00 - 0.50 K/uL BASOPHILS ABS 0.06 0.00 - 0.10 K/uL Comprehensive metabolic panel Collection Time: 01/05/19 12:51 AM Result Value Ref Range SODIUM 143 135 - 145 mmol/L POTASSIUM 2.8 (L) 3.5 - 4.9 mmol/L CHLORIDE 99 99 - 109 mmol/L CO2 23 23 - 32 mmol/L ANION GAP AGAP 24 (H) 5 - 20 mmol/L GLUCOSE 93 65 - 99 mg/dL BUN 37 (H) 8 - 25 mg/dL CREATININE 15.32 (H) 0.50 - 1.00 mg/dL BUN/CREAT 2 CALCIUM 8.3 (L) 8.5 - 10.5 mg/dL TOTAL PROTEIN 6.8 6.3 - 8.2 g/dL Albumin 4.1 3.6 - 5.0 g/dL GLOBULIN 2.7 1.3 - 4.9 g/dL A/G 1.5 1.0 - 2.4 TBIL 0.4 0.1 - 1.5 mg/dL ALK PHOS 74 35 - 115 U/L AST 55 (H) 10 - 45 U/L ALT 53 10 - 65 U/L EGFR 3 (L) >60 mL/min/1.73m2 Magnesium Collection Time: 01/05/19 12:51 AM Result Value Ref Range MAGNESIUM 2.1 1.7 - 2.4 mg/dL Phosphorus Collection Time: 01/05/19 12:51 AM Result Value Ref Range PHOSPHORUS 11.7 (HH) 2.3 - 4.8 mg/dL Troponin I Collection Time: 01/05/19 12:51 AM Result Value Ref Range TROPONIN I 0.076 (H) 0.00 - 0.04 ng/mL Echo cardiac adult complete Impression 1. Overall left ventricular systolic function is normal with, an EF between 60 - 65 %. 2. There is mild concentric left ventricular hypertrophy. 3. No regional wall motion abnormalities. 4. The right ventricle is normal in size and function. 5. The left atrial siz e is normal. 6. There is no evidence of aortic stenosis. 7. There is trace mitral regurgitat ion. 8. The poor TR signal prevents accurate estimation of pulmonary pressures. 9. There is no pericardial effusion. PROBLEM LIST Principal Problem: Diverticulitis Active Problems: Gastroesophageal reflux disease without esophagitis ESRD on peritoneal dialysis Hypokalemia Right ovarian cyst Leukocytosis Anemia in ESRD (end-stage renal disease) (HCC) Left lower quadrant pain Hyperphosphatemia Abnormal EKG Elevated troponin ASSESSMENT & PLAN 1. Mild diverticulitis, presented with left lower quadrant abdominal pain, constipation, n ausea, vomiting, poor oral intake. No report of fevers. Leukocytosis secondary to divertic ulitis.We will admit to acute care. Ordered Zosyn. Per patient, peritoneal dialysis fluid is clear, therefore less likely peritonitis and we will order MiraLax and Senna. 2. End-stage renal disease. The patient on peritoneal dialysis. Missed peritoneal dialys is last night in the process of transferring from one hospital to another. In a.m. will con sult nephrology to arrange for peritoneal dialysis . Has hyperphosphatemia. 3. Gastroesophageal reflux disease without acute esophagitis, ordered proton pump inhibito r. 4. Abnormal EKG and mildly elevated troponin. EKG shows normal sinus rhythm, ventricular rate of [address] segment depression with T-wave inversion in the anterolateral leads and in the inferior leads. ST segment elevation AVR is not significant. Almost similar to previou s admission EKG . However, today's ST segment and T-wave inversion is also noted in L III a nd aVF. Elevated troponin, mild could be due to ESRD. No active chest pain, dyspnea, diaph oresis, fatigue reported. We will trend the troponins. Echocardiogram from November showed E F greater than 70%.Ordered lipid panel, aspirin, statin, low dose beta ange. A.m. hospita list to consult cardiology. 5. Hypokalemia, replacement given in the ED possible secondary to diuretic. 6. Anemia of chronic kidney disease, stable H and H. No immediate indication for blood tr ansfusion. 7. Right ovarian cyst, repeat CAT scan showed stable. She has no pain or tenderness on th e right side. Addendum: 7:27am Consulted to arrange for PD. Disposition: Acute care Code Status: Full code Primary Care Physician: JUAN F RUIZ MD 01/05/2019 documented in this e ncounter Consult Notes Amrik Reyna MD - 01/05/2019 6:13 PM PST Consult* by Amrik Reyna MD at 01/05/191812 Author: Amrik Reyna MD Service: Nephrology Author Type: Physician Filed: 01/06/19 0927 Date of Service: 01/05/191812 Status: Signed Casework Supervisor: Amrik Reyna MD (Physician) PCP : JUAN F WHITLEY LOS: 0 days Ramona Oconnor is a 38 y.o. 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 She is known to me from a previous admission. She was admitted with left lower severe abdom inal pain which began subacutely along with nausea/vomiting/inability to hold anything down. She denied any diarrhea and indicated constipation. She denied any fever/cloudy peritoneal fluid of late. Of note she was discharged 12/27/18 (admitted 12/24/18) after being treated for culture - per itonitis. Prior to that she had again been hospitalized 12/10/18 for culture - peritonitis. In ED she was hemodynamically stable with no fever/tachycardia/bradycardia/hypotension or s evere hypertension/hypoxia at rest. Lab work up showed leucocytosis and severe hypokalemia. CT abdomen done at [facility] was suggestive of diverticulitis. She was empirically begun on zosyn. ROS: As in History of Present Illness. 7 area ROS was done and was otherwise negative. Examination: Constitutional: Alert, awake, oriented lying flat in bed comfortably. No asterixis.. HEENT: Thick neck without [...] history summarized as above. Vital Signs: BP 91/52 (BP Location: Left upper arm) | Pulse 64 | Temp 97.9 F (36.6 C) (Axillary) | Resp 16 | Ht 1.575 m (5' 2") | Wt 74.4 kg (164 lb) | SpO2 98% | BMI 30.00 kg/m Data evaluation: Lab Results Component Value Date BUN 41 (H) 01/05/2019 CREATININE 16.7 (H) 01/05/2019 EGFR 2 (L) 01/05/2019 NA 138 01/05/2019 K 2.9 (L) 01/05/2019 CL 96 (L) 01/05/2019 CO2 23 01/05/2019 CA 8.4 (L) 01/05/2019 PHOS 11.2 (HH) 01/05/2019 MG 2.4 01/05/2019 ALB 4.1 01/05/2019 HGB 12.3 01/05/2019 Echo 12/08/2018 showed EF between 60 - 65 %. Mild concentric left ventricular hypertrophy. Imaging with Ct Abdomen Pelvis Without Contrast 12/07/2018 showed intrinsically complex and/ or dense 4.5 cm mass arising from the right ovary or adnexa which was felt to be stable Stable renal atrophy No extraluminal lesion, dilatation or obstruction but non masslike wall thickening of the p roximal colon was demonstrated. No high-grade adjacent inflammatory changes or fluid collect ion. Xr Chest Pa And Lateral 12/07/2018 was negative study. Assessment and Recommendations: 1. ESRD on PD 2. Abdominal pain ? Diverticulitis. 3. Hyperphosphatemia 4. Hypokalemia 5. Anemia of chronic kidney disease She is admitted with diverticulitis but recurrent episodes of culture - peritonitis are con cerning. She has had GI work up including EGD in the past but may need a colonoscopy. Cultur e - peritonitis may reflect translocation of bacteria. BP is on the lower side. She is euvolemic. She can continue PD using her usual prescription of 10 hours with 5 cycles of 2 L tonigh t using mix of 1.5% and 2.5% dianeal solution. Replace K to a target of 4 to 4.5 to reduce cardiac irritability. Continue current medications for now. Check CRP/procalcitonin. Diet: 1 gm PO4 restricted diet. Dose all meds for an eGFR of less than 15 ml/min/1.73 m2. No use of NSAIDs (including MENDES 2 inhibitors). No use of Magnesium or aluminum containing antacids. No use of Magnesium or phosphorus containing laxatives Strict I/O Daily weights. AMRIK REYNA MD 01/05/2019 Portions of my previous notes have been carried over for continuity of care. She was seen earlier in the day and charting was completed later after rounds. Dictation software, was [employer], used which may contain error for similar sounding words deja n after review. Personal communication is requested for any clarification. Prognosis is guarded in view of multiple comorbid illnesses and ESRD aspirin 325 mg Oral Daily with breakfast atorvastatin 20 mg Oral Nightly metoprolol 25 mg Oral Daily pantoprazole 40 mg Oral QAM AC piperacillin-tazobactam 2.25 g Intravenous Q12H sevelamer 800 mg Oral TID WC traZODone 100 mg Oral Nightly documented in this en counter ED Notes Modesto Augustin MD - 01/05/2019 12:41 AM PSTFormatting of this note might be different fr om the original. ED Provider Notes by Modesto Augustin MD at 01/05/1942 Author: Modesto Augustin MD Service: Emergency Department Author Type: Physician Filed: 01/05/19 0435 Date of Service: 01/05/1942 Status: Signed Casework Supervisor: Modesto Augustin MD (Physician) [facility] Department of Emergency Medicine 12:41 AM 01/04/2019 History of Present Illness Patient Identification Ramona Oconnor is a 38 y.o. female. Patient information was obtained from patient. History/Exam limitations: none. Patient presented to the Emergency Department by: [facility] Chief Complaint Chief Complaint Patient presents with Abdominal Pain Xfer from [facility] d/t diverticulitis. The patient presents to the emergency department with chief complaints of abdominal pain. O nset of symptoms was 3 days ago, with a worsening course since that time. Patient transferre d from [facility] and was diagnosed with diverticulitis. Pt does Dialysis everyday. The s ymptoms are described to be of moderate severity. The patient also complains of nausea, and constipation at this time. Pt denies fever, diarrhea, vomiting, or any other symptoms at thi s time.The patient describes the quality and location of the symptoms as the following: diff use abdominal pain. Pt has a history of diverticulosis, hypercalcemia, and GERD. PCP: JUAN F WHITLEY Past Medical History Diagnosis Date Diverticulosis GERD (gastroesophageal reflux disease) Hypercalcemia 09/07/2017 Hyperphosphatemia 10/28/2015 Hypocalcemia 10/28/2015 Itching 10/28/2015 Metabolic acidosis 10/28/2015 Obesity Peritonitis associated with peritoneal dialysis (HCC) 01/24/2017 Uremia 10/28/2015 Past Surgical History Procedure Laterality Date ESOPHAGOGASTRODUODENOSCOPY N/A 09/10/2017 Procedure: ESOPHAGOGASTRODUODENOSCOPY; Surgeon: Beena Peters MD; Location: [facility]; Service: Gastroenterology; Laterality: N/A; PERITONEAL CATHETER INSERTION N/A 10/28/2015 Procedure: LAPAROSCOPIC - PERITONEAL DIALYSIS CATH INSERTION; Surgeon: Mundo Ramos MD; Lo cation: [facility] MAIN OR; Service: Vascular; Laterality: N/A; Prior to Admission medications Medication Sig Start Date End Date Taking? Authorizing Provider ALPRAZolam (XANAX) 0.5 MG tablet Take 0.5 mg by mouth nightly as needed for Sleep. Histo rical Provider amLODIPine (NORVASC) 2.5 MG tablet Take 2.5 mg by mouth daily. Historical Provider cefdinir (OMNICEF) 300 MG capsule Take 1 capsule by mouth daily. 12/11/18 Hilda Edwards DO clonazePAM (KLONOPIN) 0.5 MG tablet Take 0.25 mg by mouth daily as needed for Anxiety. H istorical Provider ergocalciferol (DRISDOL) 36819 UNITS capsule Take 50,000 Units by mouth once a week. His torical Provider gentamicin (GARAMYCIN) 0.1 % ointment Apply topically 3 (three) times daily. 01/25/17 Yrn Ba MD HYDROcodone-acetaminophen (NORCO) 5-325 MG per tablet Take 1 tablet by mouth every 4 (four) hours as needed. Patient not taking: Reported on 06/07/2018 03/19/18 Arias Singh MD LORazepam (ATIVAN) 1 MG tablet Take 1 mg by mouth every 8 (eight) hours as needed for Anxie ty. Historical Provider metroNIDAZOLE (FLAGYL) 500 MG tablet Take 1 tablet by mouth every 12 (twelve) hours. 9 Hilda Edwards DO ondansetron (ZOFRAN) 8 MG tablet Take 1 tablet by mouth every 8 (eight) hours as needed for Nausea. 01/25/17 Shad Ba MD potassium chloride SA (K-DUR,KLOR-CON) 20 MEQ tablet Take 1 tablet by mouth daily. 03/09/18 03/09/19 Lukas Lynn MD-R3 sevelamer (RENVELA) 800 MG tablet Take 800 mg by mouth 3 (three) times daily with meals. Historical Provider zolpidem (AMBIEN) 5 MG tablet Take 1 tablet by mouth nightly as needed for Sleep (may repea t once in 1 hr if initial dose not effective). Patient not taking: Reported on 06/07/2018 03/09/18 Lukas Lynn MD-R3 No Known Allergies Social History Social History [...] on file Social History Narrative Lives in [facility], IADL, no falls, full code Family History Problem Relation Age of Onset Other (see comments) Mother healthy Diabetes Father Breast cancer Maternal Grandmother ROS Review of Systems Constitutional: Negative for: fever, chills or weight loss. HEENT: Negative for: head trauma, ear pain, sore throat o r acute Visual disturbance. Cardiovascular/Respiratory: Negative for: chest pain, syncope, shortness of breath or cough . Gastrointestinal: Positive for: abdominal pain, nausea, and constipation Negative for: vomiting, diarrhea, or black or bloody stools. Genitourinary: Negative for: dysuria or urinary problems. Musculoskeletal: Negative for: back pain Skin: Negative for: rash or lesions. Neuro: Negative for: headache, focal muscle weakness, seizure or acute neur ological problems. Physical Exam BP 130/86 | Pulse 88 | Temp 98.7 F (37.1 C) (Oral) | Resp 20 | Wt 74.4 kg (164 lb) | SpO2 100% | BMI 30.00 kg/m Vitals Interpretation: Prehypertensive, borderline tachypneic, otherwise WNL. Pulse Oximetry interpretation: Normal General: Alert, in no apparent distress Eyes: Normal inspection, pupils equal and round, non-icteric CVS: Rate and rhythm normal No murmurs, rubs or gallops Respiratory: Breath sounds normal bilaterally, no wheezing or crackles Abdomen: Soft, LLQ tenderness Dialysis catheter in place No guarding or rebound Skin: Warm and dry No rash Musculoskeletal: Moves all extremities Neuro: No gross motosensory deficit Medical Decision Making and Emergency Department Course ED Department Course 12:41 AM. Patient presents with abdominal pain for 3 days and is transferred from [facility] with a diagnosis of diverticulitis. Pt on dialysis. Had blood work and CT done showing moderate diverticulitis. Pt given Zoysin and transferred to our facility. On exam, pt had LL Q tenderness. Will repeat lab and plan for admission. Pt will receive 2 L of IV fluids. 1:13 AM CBC shows mild leukocytosis of 15.65, and otherwise unremarkable. CMP with hypokalemia of 2.8,will replace. mild anion gap at 24, and acute renal failure co nsistent with history, although creatinine is elevated at 15.32 compared to 14.6 on 12/27/18. Will give po potassium to address hypokalemia. 2:06 AM I spoke with Dr. Ruiz, Hospitalist. We discussed the patient's case and she accepts the eris degrootnt for admission. Vitals: 01/05/19 0037 02/26/19 0314 BP: 130/86 109/66 Pulse: 88 82 Resp: 20 18 Temp: 98.7 F (37.1 C) 97.5 F (36.4 C) TempSrc: Oral Oral SpO2: 100% 98% Weight: 74.4 kg (164 lb) Medications morphine (PF) injection 8 mg (8 mg Intravenous Given 01/05/19105) ondansetron (ZOFRAN) injection 8 mg (8 mg Intravenous Given 01/05/19105) potassium chloride (K-DUR) CR tablet 40 mEq (40 mEq Oral Given 01/05/19158) promethazine (PHENERGAN) IVPB 25 mg (25 mg Intravenous New Bag 01/05/19352) morphine (PF) injection 4 mg (4 mg Intravenous Given 01/05/19347) Records Reviewed Old medical records. Nursing notes. Previous ED visits for similar and unrelated complaints. Labs & Radiology Results Laboratory Evaluation Results Procedure Component Value Ref Range Date/Time Troponin I [[id number]] (Abnormal) Collected: 01/05/1950 Order Status: Completed Updated: 01/05/19238 TROPONIN I 0.076 (H) 0.00 - 0.04 ng/mL Comprehensive metabolic panel [[id number]] (Abnormal) Collected: 01/05/1950 Order Status: Completed Specimen: Blood Updated: 01/05/19136 SODIUM 143 135 - 145 mmol/L POTASSIUM 2.8 (L) 3.5 - 4.9 mmol/L CHLORIDE 99 99 - 109 mmol/L CO2 23 23 - 32 mmol/L ANION GAP AGAP 24 (H) 5 - 20 mmol/L GLUCOSE 93 65 - 99 mg/dL BUN 37 (H) 8 - 25 mg/dL CREATININE 15.32 (H) 0.50 - 1.00 mg/dL BUN/CREAT 2 CALCIUM 8.3 (L) 8.5 - 10.5 mg/dL TOTAL PROTEIN 6.8 6.3 - 8.2 g/dL Albumin 4.1 3.6 - 5.0 g/dL GLOBULIN 2.7 1.3 - 4.9 g/dL A/G 1.5 1.0 - 2.4 TBIL 0.4 0.1 - 1.5 mg/dL ALK PHOS 74 35 - 115 U/L AST 55 (H) 10 - 45 U/L ALT 53 10 - 65 U/L EGFR 3 (L) >60 mL/min/1.73m2 CBC with differential [[id number]] (Abnormal) Collected: 01/05/1950 Order Status: Completed Specimen: Blood Updated: 01/05/19112 WBC 15.65 (H) 3.80 - 11.00 K/uL RBC 4.24 3.70 - 5.10 M/uL HGB 12.7 11.3 - 15.5 g/dL HCT 37.4 34.0 - 46.0 % MCV 88.2 80.0 - 100.0 fl MCH 30.0 27.0 - 34.0 pg MCHC 34.0 32.0 - 35.5 g/dL RDW SD 49.4 37 - 53 fl PLT 337 150 - 400 K/uL MPV 8.7 fl DIFF TYPE AUTOMATED NEUTROPHILS 81.32 % LYMPHOCYTES 10.35 % MONOCYTES 7.85 % EOSINOPHILS 0.13 % BASOPHILS 0.35 % NEUTROPHILS ABS 12.72 (H) 1.90 - 7.40 K/uL LYMPHOCYTES ABS 1.62 1.00 - 3.90 K/uL MONOCYTES ABS 1.23 (H) 0.00 - 0.80 K/uL EOSINOPHILS ABS 0.02 0.00 - 0.50 K/uL BASOPHILS ABS 0.06 0.00 - 0.10 K/uL Radiology and EKG Evaluation Imaging Results None EKG @ 12:55 AM Sinus arrhythmia rate of 69 T-wave inversion in leads V3-V6, and II, III and AVF No ST changes concerning for acute ischemia or infarction Normal QRS, intervals, and QTc No significant EKG changes on comparison EKG viewed independently and interpreted by me contemporaneously: Modesto Augustin MD Diagnosis & Disposition ED Diagnoses Final diagnoses Diverticulitis Hypokalemia ESRD on peritoneal dialysis (HCC) Disposition: ED Disposition ED Disposition Condition Comment Admit/Observation Bed request special needs: none Diagnosis?: diverticulitis Procedures Additional Documentation Procedures Attending Provider Note: IModesto MD personally performed the services described in this documentation, as scribed by Dionte Caruso in my presence, and it is both accura te and complete. Chart Reviewed and Completed: 01/05/2019 4:35 AM Scribe: Jason Whitten, scribing for and in the presence of Modesto Augustin MD. Signed by: Jason Escalera 01/05/2019 2:08 AM Modesto Augustin MD 01/05/195 onversion Transact ion, Provider Unknown - 01/05/2019 12:37 AM PSTFormatting of this note might be different fr om the original. ED Notes by Renetta Chand RN at 01/05/1938 Author: Renetta Chand RN Service: (none) Author Type: Registered Nurse Filed: 01/05/1936 Date of Service: 01/05/1936 Status: Signed Casework Supervisor: Renetta Chand RN (Registered Nurse) Bed: 01 Expected date: Expected time: Means of arrival: Comments: luz Chand RN 01/05/1938 onver patric Transaction, Provider Unknown - 01/04/2019 10:35 PM PST ED Triage Notes by Michael Martinez RN at 01/04/192234 Author: Michael Martinez RN Service: (none) Author Type: Registered Nurse Filed: 01/04/192236 Date of Service: 01/04/192234 Status: Signed Casework Supervisor: Michael Martinez RN (Registered Nurse) Pt is a transfer from [facility]. Report is as follows: Pt had c/o LLQ abd pain for ab out two days, also c/o no BM x5 days. Pt also c/o nausea. Pt dx'd with diverticulitis, re ceived pipercillin, zofran, reglan, 4mg morphine, ativan, 20meq K+, 1500ml NS. K" 2.6, WBC 16.3, creatinine 15.4. Hx ESRD, peritoneal dialysis, HTN, diabetes. docume nted in this encounter Miscellaneous Notes Plan of Care - Conversion Transaction, Provider Unknown - 01/09/2019 10:56 AM PST Plan of Care by Britt Hawkins RN at 01/09/19 1056 Author: Britt Hawkins RN Service: (none) Author Type: Registered Nurse Filed: 01/09/19 1056 Date of Service: 01/09/191055 Status: Signed Casework Supervisor: Britt Hawkins RN (Registered Nurse) Daily Care Daily care needs are met Progressing Pain Patient's pain/discomfort is manageable Progressing Safety Patient will be injury free during hospitalization Progressing lan o f Care - Conversion Transaction, Provider Unknown - 01/09/2019 1:27 AM PSTFormatting of thi s note might be different from the original. Plan of Care by Kathie Harvey RN at 01/09/19126 Author: Kathie Harvey RN Service: (none) Author Type: Registered Nurse Filed: 01/09/19126 Date of Service: 01/09/19126 Status: Signed Casework Supervisor: Kathie Harvey RN (Registered Nurse) Daily Care Daily care needs are met Progressing Knowledge Deficit Patient remain free of falls: Standard Risk (Renteria 0-24) Progressing Patient will remain free of falls: Low Risk (Renteria 25-50) Progressing Patient will remain free from falls: High Risk (Renteria 51+) Progressing Pain Patient's pain/discomfort is manageable Progressing Psychosocial Needs Demonstrates ability to cope with hospitalization/illness Progressing Collaborate with patient/family/caregiver to identify patient specific goals for this h ospitalization Progressing Safety Patient will be injury free during hospitalization Progressing Patient will call for ambulation and tending to medical and assistive devices to maintain p atient safety. lan o f Care - Conversion Transaction, Provider Unknown - 01/08/2019 11:40 AM PSTFormatting of thi s note might be different from the original. Plan of Care by Judit Mcgraw RN at 01/08/19 1140 Author: Judit Mcgraw RN Service: (none) Author Type: Registered Nurse Filed: 01/08/191139 Date of Service: 01/08/191139 Status: Signed Casework Supervisor: Judit Mcgraw RN (Registered Nurse) Problem: Psychosocial Needs Goal: Demonstrates ability to cope with hospitalization/illness Assess and monitor patients ability to cope with his/her illness. Outcome: Progressing Patient is able to express needs and concerns appropriately and uses call light when needs arise. Friend at [facility] for emotional support. lan o f Care - Conversion Transaction, Provider Unknown - 01/08/2019 1:06 AM PSTFormatting of thi s note might be different from the original. Plan of Care by Felicitas Conklin RN at 01/08/19105 Author: Felicitas Conklin RN Service: (none) Author Type: Registered Nurse Filed: 01/08/19105 Date of Service: 01/08/19105 Status: Signed Casework Supervisor: Felicitas Conklin RN (Registered Nurse) Daily Care Daily care needs are met Progressing Patient calls appropriately for any needs. Knowledge Deficit Patient will remain free of falls: Low Risk (Renteria 25-50) Progressing Pain Patient's pain/discomfort is manageable Progressing Patient's pain has been manageable with prn pain medications. Psychosocial Needs Demonstrates ability to cope with hospitalization/illness Progressing Collaborate with patient/family/caregiver to identify patient specific goals for this h ospitalization Progressing Safety Patient will be injury free during hospitalization Progressing lan o f Care - Conversion Transaction, Provider Unknown - 01/07/2019 8:27 AM PSTFormatting of thi s note might be different from the original. Plan of Care by Heraclio Clemons RN at 01/07/19826 Author: Heraclio Clemons RN Service: (none) Author Type: Registered Nurse Filed: 01/07/19826 Date of Service: 01/07/19826 Status: Signed Casework Supervisor: Heraclio Clemons RN (Registered Nurse) Pain Goal: Patient s pain/discomfort is manageable Assess and monitor patient s pain using appropriate pain scale. Collaborate with interdis ciplinary team and initiate plan and interventions as ordered. Re-assess patient s pain le adriana approximately 1-2 hours after pain management intervention. Premedicate as needed. Outcome: Progressing Patient states pain is under control. Will continue to monitor and provide medication as we ll as comfort measures as needed. Safety Goal: Patient will be injury free [...] and non-skid footwear provided. Outcome: Progressing Patient will remain free from falls during hospital visit. Bed in lowest position. Room shawn e from clutter. Call light within reach. Patient uses call light appropriately. Discharge Goal: Patient's discharge needs are met. Outcome: Progressing Working with ancillary staff and District Manager [employer] to identify discharge barriers and meet patie nt's discharge needs Psychosocial Needs Goal: Patient and family demonstrates the ability to cope with surgery/illness/diagnosis Outcome: Progressing Patient able to verbalize needs appropriately and demonstrates adequate coping skills. Fall Prevention Goal: No Falls during Hospital Stay Outcome: Progressing Maintain bed in low, locked position at all times. Long [address] patient and family to hospital surroundings. Provide non-skid slippers. Call light within reach. Rounding per standard Potential for Compromised Skin Integrity Goal: Outcome: Progressing Provide teaching at level of understanding. Turn patient every 2 hours. Keep skin clean and dry Monitor patient's hygiene practices. Check incision/wound site every 4 hours for redness, tenderness or drainage. Encouraged frequent repositioning every 2 hours and frequent ambulation in the [facility]. lan o f Care - Conversion Transaction, Provider Unknown - 01/06/2019 11:41 PM PSTFormatting of thi s note might be different from the original. Plan of Care by Felicitas Conklin RN at 01/06/192340 Author: Felicitas Conklin RN Service: (none) Author Type: Registered Nurse Filed: 01/06/192340 Date of Service: 01/06/192340 Status: Signed Casework Supervisor: Felicitas Conklin RN (Registered Nurse) Daily Care Daily care needs are met Progressing Patient calls appropriately for any needs. Knowledge Deficit Patient will remain free of falls: Low Risk (Renteria 25-50) Progressing Pain Patient's pain/discomfort is manageable Progressing Patient has been instructed to call as needed for prn pain medication. Psychosocial Needs Demonstrates ability to cope with hospitalization/illness Progressing Collaborate with patient/family/caregiver to identify patient specific goals for this h ospitalization Progressing Safety Patient will be injury free during hospitalization Progressing lan o f Care - Conversion Transaction, Provider Unknown - 01/06/2019 9:18 AM PSTFormatting of thi s note might be different from the original. Plan of Care by Heraclio Clemons RN at 01/06/19917 Author: Heraclio Clemons RN Service: (none) Author Type: Registered Nurse Filed: 01/06/19917 Date of Service: 01/06/19917 Status: Signed Casework Supervisor: Heraclio Clemons RN (Registered Nurse) Pain Goal: Patient s pain/discomfort is manageable Assess and monitor patient s pain using appropriate pain scale. Collaborate with interdis ciplinary team and initiate plan and interventions as ordered. Re-assess patient s pain le adriana approximately 1-2 hours after pain management intervention. Premedicate as needed. Outcome: Progressing Patient states pain is under control. Will continue to monitor and provide medication as we ll as comfort measures as needed. Safety Goal: Patient will be injury free [...] and non-skid footwear provided. Outcome: Progressing Patient will remain free from falls during hospital visit. Bed in lowest position. Room shawn e from clutter. Call light within reach. Patient uses call light appropriately. Discharge Goal: Patient's discharge needs are met. Outcome: Progressing Working with ancillary staff and District Manager [employer] to identify discharge barriers and meet patie nt's discharge needs Psychosocial Needs Goal: Patient and family demonstrates the ability to cope with surgery/illness/diagnosis Outcome: Progressing Patient able to verbalize needs appropriately and demonstrates adequate coping skills. Fall Prevention Goal: No Falls during Hospital Stay Outcome: Progressing Maintain bed in low, locked position at all times. Long [address] patient and family to hospital surroundings. Provide non-skid slippers. Call light within reach. Rounding per standard Potential for Compromised Skin Integrity Goal: Outcome: Progressing Provide teaching at level of understanding. Turn patient every 2 hours. Keep skin clean and dry Monitor patient's hygiene practices. Check incision/wound site every 4 hours for redness, tenderness or drainage. Encouraged frequent repositioning every 2 hours and frequent ambulation in the [facility]. lan o f Care - Conversion Transaction, Provider Unknown - 01/06/2019 2:19 AM PSTFormatting of thi s note might be different from the original. Plan of Care by Felicitas Conklin RN at 01/06/19218 Author: Felicitas Conklin RN Service: (none) Author Type: Registered Nurse Filed: 01/06/19219 Date of Service: 01/06/19218 Status: Signed Casework Supervisor: Felicitas Conklin RN (Registered Nurse) Daily Care Daily care needs are met Progressing Patient calls appropriately for any needs. Pain Patient's pain/discomfort is manageable Progressing Patient has been instructed to call as needed for pain medication. Psychosocial Needs Demonstrates ability to cope with hospitalization/illness Progressing Collaborate with patient/family/caregiver to identify patient specific goals for this h ospitalization Progressing Safety Patient will be injury free during hospitalization Progressing lan o f Dex - Jero Smart MD - 01/05/2019 10:18 AM PSTFormatting of this note might be dif ferent from the original. Plan of Care by Jero Smart MD at 01/05/191017 Author: Jero Smart MD Service: Hospitalist Author Type: Physician Filed: 01/05/199 Date of Service: 01/05/191017 Status: Signed Casework Supervisor: Jero Smart MD (Physician) [facility] Service: Hospitalist Progress Note/Plan of Care Pt: Ramona Oconnor AGE/SEX: 38 y.o. female ROOM: [facility]431-1 : 1980 PCP: JUAN F WHITLEY ADMIT DATE: 01/05/2019 TODAY'S DATE: 01/05/2019 Plan of Care: She is feeling better. Slight abdominal pain. She is not having any chest pain. I will cont inue with antibiotics for now. We will replace potassium. Patient Vitals for the past 24 hrs: BP Temp Temp src Pulse Resp SpO2 Weight 01/05/19 0715 111/73 97.4 F (36.3 C) Oral 65 16 100 % - 01/05/19 0503 123/76 97.1 F (36.2 C) Axillary 100 16 95 % - 01/05/19 0435 95/61 - - 83 16 96 % - 01/05/19 0314 109/66 97.5 F (36.4 C) Oral 82 18 98 % - 01/05/19 0037 130/86 98.7 F (37.1 C) Oral 88 20 100 % 74.4 kg (164 lb) JERO SMART MD, FACP 01/05/2019 10:18 AM Dictation software, [employer], used which may contain error for similar sounding words even af ter review. Personal communication requested for any clarification. lan of Care - Con version Transaction, Provider Unknown - 01/05/2019 7:50 AM PST Plan of Care by Dai Rodriguez RN at 01/05/19749 Author: Dai Rodriguez RN Service: (none) Author Type: Registered Nurse Filed: 01/05/19749 Date of Service: 01/05/19749 Status: Signed Casework Supervisor: Dai Rodriguez RN (Registered Nurse) Problem: Pain Goal: Patient's pain/discomfort is manageable Assess and monitor patient's pain using appropriate pain scale. Collaborate with interdisci plinary team and initiate plan and interventions as ordered. Re-assess patient's pain level approximately 1-2 hours after pain management intervention. Premedicate as needed. Outcome: Progressing Pt denies pain. Will continue to monitor. Dai Rodriguez RN docume nted in this encounter Plan [...] in this encounter Results External Lab: CBC (01/09/2019 5:46 AM PST) + + + [...] | | | | | [place] [address] | | | | + + + [...] | | | | | [place] [address] | | | | + + + [...] Hospital, | | | | | | [place] [address] | | | | + + + [...] + +---------+ + + External Lab: CBC (01/08/2019 5:26 AM PST) + + + [...] | | | | | [place] [address] | | | | + + + [...] | | | | | | [place] [address] | | | | + + + [...] | | | | | [place] [address] | | | | + + + [...] Hospital, | | | | | | [place] [address] | | | | + + + [...] Vane | | | | | | [place] | | | | | | [address] | | | | + + + [...] | | | | | [place] [address] | | | | + + + [...] | | | | | [place] [address] | | | | + + + [...] | | | | | | at [facility];[address] [place] [address] | | | | | | [facility];[place] [address] | | | | + + + [...] | | | | | [place] [address] | | | | + + + [...] | | | | | [place] [address] | | | | + + + [...] | | | | | [place] [address] | | | | + + + [...] [address], | | | | | | [place] [address] | | | | + + + [...] | READ BACK BY: BRANDEE Ny | mmol/L | LAB | | | | @ MARY 7:06 01/06/19 DH | | | | | | BRANDEE Ny [...] | | | | | [place] [address] | | | | + + + [...] | | | | | | at [facility];[address] [place] [address] | | | | | | Blvd;[place] [address] | | | | + + + [...] | | | | | | at [facility];[address] [place] [address] | | | | | | [facility];[place] [address] | | | | + + + [...] | | | | | performed at [facility];[address] | | | | | | [address] [facility];[place], [place] | | | | | | [address] | | | | + + + [...] | | | | | [place] [address] | | | | + + + [...] | | | | TCL, [address] [facility] | | | | | | Any, [place] | | | | | | [address] | | | | + + + [...] | | | | | [place] [address] | | | | + + + [...] | | | Calculated | performed at [facility], [address] | | LAB | | | | [address], | | | | | | [place] [address] | | | | + + + [...] | | | | | [place] [address] | | | | + + + [...] | | | | | | (500), editor sound Collin, | | | | | | Rashel Mercado ([id number]) on | | | | | | 01/05/2019 3:50:25 AM | | | | + + + + + + + + | Specimen | + + | | + + + + + | Narrative | Performed At | + + + | Historically converted procedure from [facility] environment | EXTERNAL LAB | + [...] | | | | | | at [facility];[address] [place] [address] | | | | | | Blvd;[place] [address] | | | | + + + [...] | | | Basophils | performed at [facility];[address] | [address] | LAB | | | | [address];[place], [place] | | | | | | [address] | | | | + + + [...] | | | | TO LEONILA Hernández RN/BARI AT | | LAB | | | | 0304 BY MWREAD BACK | | | | | | RESULTS VERIFIEDTesting | | | | | | performed at [facility];[address] | | | | | | [address];[place], [place] | | | | | | [address] | | | | + + + [...] EXTERNAL | | | | performed at [facility];[address] | | LAB | | | | [address];[place] | | | | | | [address] | | | | + + + [...] | | | | | | [facility] traceable | | | | | | equation.Testing | | | | | | performed at [facility] | | | | | | [facility];[place], [place] | | | | | | [address] | | | | + + + [...]
--- OUTSIDE RECORDS SUMMARY | ~2020-05-11 | XMS | Encounter Summary ---
Demographics + + + | Address | [address] | | | [place] [address] | + + + | Home Phone [...] [place], [place] | | | | | [address] | | + + + + + | Lydia Palm | ECON | [place], [place] | | | | | [address] | | + + + + + | melinda METZ" | ECON | [place], [place] | | | reba | | [address] | | + + + + + | Jose C Oconnor | ECON | [place] | | | | | [place] | | | | | [address] | | + + + + + Care Team Providers + +------+ + | Care Medical Staff Manager Name | Role | Phone | + +------+ + | No, Physician | PCP | Unavailable | + +------+ + Encounter Details +--------+ + + + + | Date | Type | Department | Care Team | Description | +--------+ + + + + | 08/26/ | Hospital | [facility] | Qasim Pederson MD | Canceled (OTHER) | | 2019 | Encounter | [facility] XRAY | [address] | | | | | [address] | [place] | | | | | [place], [place] | [address] | | | | | [address] | | | | | | [phone] | | | +--------+ + + + [...] + + + | BB BAND | [id number] | | [facility] | | | | | | LABORATORY | | + + + + + + | UNIT # | [id number] | | [facility] | | | | [...] + + + | UNIT # | [id number] | | [facility] | | | | [...] + + + | UNIT # | [id number] | | [facility] | | | | [...] + + + | UNIT # | [id number] | | [facility] | | | | [...] + + + | UNIT # | [id number] | | [facility] | | | | [...] + + + | UNIT # | [id number] | | [facility] | | | | [...] + + + | UNIT # | [id number] | | [facility] | | | | [...] + + + | UNIT # | [id number] | | [facility] | | | | [...] + | CROSSMATCH | COMPATIBLETesting | | [facility] | | | RESULT | performed at [facility] | | LABORATORY | | | | [address];[place], [place] | | | | | | [address] | | | | + + + + + + + + | Specimen | + + | | + + + + + + + | Performing | Address | City/State/Zipcode | Phone Number | | Organization | | | | + + + + + | [facility] | [address] | [place] [address] | [phone] | + + + + + documented in this encounter Visit Diagnoses Not on filedocumented in this encounter
--- OUTSIDE RECORDS SUMMARY | ~2020-05-11 | XMS | Encounter Summary ---
Demographics + + + | Address | [address] | | | [place] [address] | + + + | Home Phone [...] [place], [place] | | | | | [address] | | + + + + + | Lydia Palm | ECON | [place], [place] | | | | | [address] | | + + + + + | melinda METZ" | ECON | [place], [place] | | | [place] | | [address] | | + + + + + | Jose C Oconnor | ECON | [place] | | | | | [place] | | | | | [address] | | + + + + + Care Team Providers + +------+ + | Care Industrial Technology Teacher Name | Role | Phone | [...] + + | 08/10/ | Emergency | [facility] | Farhad Lee, | End stage renal | | 2019 | | [facility] | PA-C [address] | disease on dialysis | | | | EMERGENCY CENTER | [place] [address] | (HCC) (Primary Dx); | | | | [address] | [phone] | Hyperkalemia; | | | | [place], [place] | | Generalized | | | | [address] | Sher Alex, | abdominal pain; | | | | [phone] | DO [address] | Ovarian mass | | | | | [place] [address] | | | | | | [phone] | | | | | | | [...] + | Blood Pressure | 128/58 | 08/10/2019 3:52 PM | | | | | PDT | | + + + + + | Pulse | 67 | 08/10/2019 3:52 PM | | | | | PDT | | + + + + + | Temperature | 35.6 C (96 F) | 08/10/2019 1:09 PM | | | | | PDT | | + + + + + | Respiratory Rate | 18 | 08/10/2019 3:52 PM | | | | | PDT | | + + + + + | Oxygen Saturation | 98% | 08/10/2019 3:52 PM | | | | | PDT | | + + + + + | Inhaled Oxygen | - | - | | | Concentration | | | | + + + + + | Weight | 87 kg (191 lb 12.8 | 08/10/2019 1:09 PM | | | | oz) | PDT | | + + + + + | Height | - | - | | + + + + + | Body Mass Index | 35.08 | 07/08/2019 10:28 AM | | | [...] be sent through Care Everywhere.Abdominal Pain, Adult (Turkmen)documented in this encounter Medications at Time of [...] documented as of this encounter ED Notes Inna Baptiste RN - 08/10/2019 1:22 PM PDTPatient c/o diffuse abdominal pain since yeste rd. She states the worst is around her umbilicus. Patient reports she is currently on hemo dialysis. She was at the vascular surgeon today when the nurse advised her to come to the ER d/t her abdominal pain. Patient currently has a wound vac in her left axilla. She is receiv ing dialysis Friday, Friday, and Friday. Last dialyzed yesterday. She no longer makes uri ne. Farhad Corral PA-C - 08/10/2019 1:20 PM PDT Procedures [facility] History of Present Illness Patient Identification Ramona Oconnor is a 39 y.o. female. Patient information was obtained from patient History/Exam limitations: none. Patient presented to the Emergency Department by: Car Chief Complaint Chief Complaint Patient presents with Abdominal Pain started yesterday The patient is a 39 y.o. female who complains of diffuse abdominal pain. Onset of symptoms was yesterday, with a continued course since that time. The symptoms are described to be of mild to moderate severity. The patient also complains of end-stage renal disease who receiv es dialysis Friday and Friday, last dialyzed yesterday. No care prior to arrival Pertinent negatives include: no fever, vomiting, diarrhea, flank pain, chest pain, cough, u rinary symptoms, changes in bowel habits or blood in stool, recent antibiotic use, or decrea sed appetite. No Physician on file Past Medical History: Diagnosis [...] 10/25/15 showed normal sized kidneys. 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 GERD (gastroesophageal reflux disease) Hypercalcemia 09/07/2017 [...] REMOVAL; Surgeon: Qasim Pederson MD; Location: [facility] MAIN OR ; Service: Vascular; Laterality: N/A; Infected PD catheter removal DEBRIDEMENT Left 07/08/2019 Procedure: LEFT AXILLA WOUND DEBRIDEMENT, WASHOUT AND POSSIBLE WOUND VAC PLACEMENT; Surge on: Qasim Pederson MD; Location: [facility] MAIN OR OTHER SURGICAL HISTORY Left 03/11/2019 AV FISTULA PLACEMENT - Procedure: AV FISTULA; Surgeon: Qasim Pederson MD; Location: [facility] M AIN OR; Service: Vascular; Laterality: Left; OTHER SURGICAL HISTORY HARDWARE PRESENT OTHER SURGICAL HISTORY Right 01/2019 chest wall OTHER SURGICAL HISTORY Left 05/06/2019 AV GRAFT CREATION - Procedure: AV GRAFT CREATION; Surgeon: Qasim Pederson MD; Location: [facility] MAIN OR; Service: Vascular; Laterality: Left; bovine carotid graft OTHER SURGICAL HISTORY Left 05/26/2019 WOUND VAC PLACEMENT/REPLACEMENT - Procedure: WOUND VAC - PLACEMENT - REPLACEMENT; Surgeon : Qasim Pederson MD; Location: [facility] MAIN OR; Service: Vascular; Laterality: Left; PERITONEAL CATHETER PLACEMENT/REMOVAL 10/28/2015 Procedure: LAPAROSCOPIC - PERITONEAL DIALYSIS CATH INSERTION; Surgeon: Mundo Ramos MD; Lo cation: [facility] MAIN OR; Service: Vascular; Laterality: N/A; UPPER GASTROINTESTINAL ENDOSCOPY 09/10/2017 Procedure: ESOPHAGOGASTRODUODENOSCOPY; Surgeon: Beena Peters MD; Location: [facility] ENDOSCOP Y; Service: Gastroenterology; Laterality: N/A; WISDOM TOOTH EXTRACTION Prior to Admission medications Medication Sig Start Date End Date Taking? Authorizing Provider HYDROcodone-acetaminophen (NORCO) 5-325 mg per tablet Take 1 tablet by mouth every 4 hours as needed for Pain. 07/08/19 Man Jeronimo PA-C omeprazole (PRILOSEC) 20 mg capsule Take 20 mg by mouth every morning (before breakfast). Historical Provider, promethazine (PHENERGAN) 25 mg tablet [...] Review of Systems Constitutional: Negative for: fever, chills, fatigue, decreased appetite, sweats or ellie ght loss Eyes: Negative for: decreased vision or irritated eyes Throat: Negative for: mouth sores Cardiovascular/Respiratory: Negative for: chest pain, shortness of breath, cough Gastrointestinal: Positive for: abdominal pain Negative for: vomiting, diarrhea, black or bloody stools Genitourinary: Negative for: dysuria, hematuria, urinary problems Musculoskeletal: Negative for: myalgias and arthralgias Skin: Negative for: rash Neuro and psych: Negative for: fainting, head injury, seizure, trouble walking Endocrine/Heme/Lymph: Negative for: swollen lymph nodes, easy bruising Physical Exam Vitals: 08/10/19 1309 08/10/19 1348 BP: 133/58 144/72 Pulse: 78 61 Resp: 16 18 Temp: 35.6 C (96 F) TempSrc: Oral SpO2: 99% 100% Weight: 87 kg (191 lb 12.8 oz) Pulse Oximetry interpretation: Normal General: Alert, in no apparent distress, non toxic, well nourished Eyes: Normal inspection, pupils equal and round, non-icteric ENT: Moist mucous membranes, no oral lesions Neck: Normal inspection Cardiovascular: Rate and rhythm normal No murmurs Respiratory: Breath sounds normal bilaterally No rales, rhonchi, or wheezes Normal respiratory effort Abdomen: Bowel sounds normoactive Soft, tender to palpation diffusely, non-distended No guarding or rebound No abdominal scars noted No McBurney's point tenderness No peritoneal signs Genitourinary: Deferred Rectal exam: Deferred Back: Normal inspection, no CVAT Skin: Color normal Warm and dry No rash Hemodialysis port present in right upper chest wall Wound VAC in left axilla Neuro: No motor deficit, moves all 4 extremities No sensory deficit Normal gait Medical Decision Making and Emergency Department Course ED Department Course 1320 Patient is a 39 y.o. female presenting with abdominal pain. On Physical exam she has g eneralized abdominal pain. No evidence of acute surgical abdomen. Will obtain labs, imaging, treat symptomatically and reassess. Patient receives hemodialysis on Friday, Friday, . Last dialyzed yesterday. Will be dialyzed again tomorrow. 1340 labs resulted, hyperkalemia at 5.7, creatinine is 9.12 consistent with end-stage re nal disease. Remainder of labs are essentially unremarkable. 1450 CT unremarkable for acute process. Discussed incidental findings with Dr. Stafford on. MRI needs to be done with contrast and be scheduled with primary care on an outpatient basis as to coordinate times with dialysis. Updated family as well. Sanaz considered a Differential which includes but not limited to appy (no RLQ ttp), hepatobi liary disease (no RUQ ttp LFTs normal), pancreatitis (lipase normal), diverticulitis (no LLQ ttp), SBO (no distention), AAA (no abd bruit or mass), UTI/pyelo (does not make urine), kid jarrod stone (no colicky pain), GERD/gastritis, mesenteric ischemia (no pain out of proportion) , upholstery trimmer pathology including TOA/ovarian torsion/ectopic (no pelvic pain, preg negati ve) Have discussed with the patient results of workup, no clear etiology for symptoms but felt safe for DC home. Discussed with patient indications for return and need for PCP follow up. The patient is afebrile and nontoxic appearing at this time, and has remained stable throug hout the visit in the emergency department. I explained what will constitute a return visit emergency department. All questions were sought and answered. The patient expressed verba l understanding and agreed to treatment plan. Dictation software, [employer], is used. Sound-alike errors may be present. If there is any jazlyn bt, please refer to provider for clarification. Records Reviewed Old medical records. Previous electrocardiograms. Nursing notes. Previous radiology studies. Laboratory Evaluation Recent Results (from the past 24 hour(s)) CBC with Differential Result Value Ref Range WBC 10.30 3.80 - 11.00 K/uL RBC 4.77 3.70 - 5.10 M/uL Hemoglobin 13.8 11.3 - 15.5 g/dL Hematocrit 42.2 34.0 - 46.0 % MCV 88.3 80.0 - 100.0 fl MCH 28.9 27.0 - 34.0 pg MCHC 32.8 32.0 - 35.5 g/dL RDW-SD 49.0 37 - 53 fl Platelet Count 277 150 - 400 K/uL MPV 8.1 fl Diff Type AUTOMATED % Neutrophils 79.26 % % Lymphocytes 12.07 % Monocyte % 5.60 % Eosinophils % 2.30 % Basophils % 0.77 % Neutrophils, Absolute 8.16 (H) 1.90 - 7.40 K/uL Absolute Lymphocytes 1.24 1.00 - 3.90 K/uL Absolute Monocytes 0.58 0.00 - 0.80 K/uL Eosinophils, Absolute 0.24 0.00 - 0.50 K/uL Basophils, Absolute 0.08 0.00 - 0.10 K/uL Comprehensive Metabolic Panel Result Value Ref Range Na 139 135 - 145 mmol/L K 5.7 (H) 3.5 - 4.9 mmol/L Cl 102 99 - 109 mmol/L CO2 24 23 - 32 mmol/L Anion Gap 19 5 - 20 mmol/L Glucose 110 (H) 65 - 99 mg/dL BUN 35 (H) 8 - 25 mg/dL Creatinine 9.12 (H) 0.50 - 1.00 mg/dL BUN/Creatinine Ratio 4 Calcium 9.5 8.5 - 10.5 mg/dL Protein, Total 7.8 6.3 - 8.2 g/dL Albumin 4.6 3.6 - 5.0 g/dL Globulin 3.2 1.3 - 4.9 g/dL A/G Ratio 1.4 1.0 - 2.4 BILIRUBIN, TOTAL 0.2 0.1 - 1.5 mg/dL ALK PHOS 82 35 - 115 U/L AST 13 10 - 45 U/L ALT <7 (L) 10 - 65 U/L Estimated GFR 5 (L) >60 mL/min/1.73m2 Lipase Result Value Ref Range Lipase 83 (H) 12 - 53 U/L Lab Interpretation I have reviewed lab results from the emergency department workup and abnormal results have been posted to the chart. Pertinent positive and negative findings have been addressed appr opriately. Radiology and ECG Evaluation Recent Results (from the past 360 hour(s)) CT Abdomen wo Contrast Narrative CT ABDOMEN/PELVIS WITHOUT CONTRAST CLINICAL INFORMATION: Abdominal pain, peritoneal dialysis removal port placement COMPARISON: US HEMODIALYSIS ACCESS FISTULA OR GRAFT (06/21/2019); US HEMODIALYSIS ACCESS FISTULA OR GRAFT (04/22/2019); CT ABDOMEN PELVIS W CONTRAST (04/02/2019); US UPPER EXTREMITY DIALYSIS MAPPING BILATERAL (2019); IR DIALYSIS TUNNELED CATHETER INSERTION (2019); IR GUIDANCE VASCULAR ACCESS US (2019); US ABDOMEN LIMITED (02/01/2019); US PELVIS WITH ENDOVAGINAL (02/01/2019); PROCEDURE: Axial images through the abdomen. Multiplanar reconstructions. At least one of the following CT dose optimization techniques were used: Automated exposure control; Adjustment of mA and/or kV according to patient size; Use of iterative reconstruction technique. FINDINGS: LUNG BASES: No significant pulmonary abnormality. No pleural effusion or pneumothorax. The tip of a central venous catheter is noted at the superior cavoatrial junction. ABDOMEN Liver and Biliary: Solid organ evaluation suboptimal without contrast. There is cholelithiasis without evidence of acute cholecystitis. Pancreas, Spleen and Adrenals: There is an unchanged fat containing left adrenal lesion. Normal spleen and pancreas morphology, without adjacent stranding or hematoma. Kidneys: The kidneys are atrophic bilaterally. Bowel: There is colonic diverticulosis without evidence of acute diverticulitis. There is no evidence of small bowel inflammation or obstruction. Thin membranes are again noted in the right lower quadrant. Vessels: Abdominal aorta normal in caliber. No aneurysm. Veins not assessed without contrast. Lymph Nodes: No adenopathy. Peritoneum and Retroperitoneum: Complex right adnexal mass measures 6.3 x 4.8 cm (series 2, image 151) previously measuring 5.6 x 4.2 cm on 04/02/2019. There is mild mesenteric fat stranding. BODY WALL Soft Tissues: No bowel or inflamed fat containing hernia, mass or hemorrhage. Bones: No acute fracture or vertebral end plate destruction. No lytic or blastic lesion. IMPRESSION: 1. No radiographically evident acute intra-process. 2. Apparent interval increase in size of right ovarian mass. Further evaluation with contrast enhanced MRI is recommended. 3. Colonic diverticulosis without acute diverticulitis. 4. Cholelithiasis without acute cholecystitis. 5. Mild mesenteric fat stranding and omental septations likely sequela of prior peritoneal dialysis catheter. Signed by: Bianka Glez Matthew Sign Date/Time: 08/10/2019 2:50 PM Diagnosis: 1. End stage renal disease on dialysis (HCC) 2. Hyperkalemia 3. Generalized abdominal pain 4. Ovarian mass Disposition: ED Disposition ED Disposition Condition Comment Discharge Stable Follow up: Follow-up Information Schedule an appointment as soon as possible for a visit with [facility]. Specialty: Family Medicine Why: Please establish with PCP for appropriate long-term care and follow-up Contact information: [address] [facility] [address] Go to [facility]. Specialty: Emergency Medicine Why: If symptoms worsen Contact information: [address] [facility] [address] Discharge Medications: New Prescriptions HYDROCODONE-ACETAMINOPHEN (NORCO) 5-325 MG PER TABLET Take 1 tablet by mouth every 6 ho urs as needed for Pain for up to 3 days. This document has been prepared with a voice recognition system. The possibility of "sound alike" monotype setter errors, addition and/or deletions may occur. If there is any question p lease contact the author of the document. Farhad Lee PA-C 08/10/19 1544 Associated attestation - Sher Alex DO - 08/11/2019 6:52 AM PDTI have reviewed th e advance practice clinicians note and was available for consultation/supervision as needed. documented in this encounter Plan of Treatment + +------+--------+ + + | Name | Type | Priori | Associated Diagnoses | Date/Time | | | | ty | | | + +------+--------+ + + | ED INFORMATION | KATIANA | Routin | | 08/10/2019 12:55 PM | | EXCHANGE | | e | | PDT | + +------+--------+ + + documented as of this encounter Procedures + +--------+ + + + | Procedure Name | Priori | Date/Time | Associated Diagnosis | Comments | | | ty | | | | + +--------+ + + + | ECG 12 LEAD | STAT | 08/10/2019 | | Results for this | | | | 3:16 PM | | procedure are in the | | | | PDT | | results section. | + +--------+ + + + | CT ABDOMEN WO | STAT | 08/10/2019 | | Results for this | | CONTRAST | | 2:29 PM | | procedure are in the | | | | PDT | | results section. | + +--------+ + + + | CBC WITH | STAT | 08/10/2019 | | Results for this | | DIFFERENTIAL | | 1:40 PM | | procedure are in the | | | | PDT | | results section. | + +--------+ + + + | LIPASE | STAT | 08/10/2019 | | Results for this | | | | 1:40 PM | | procedure are in the | | | | PDT | | results section. | + +--------+ + + + | COMPREHENSIVE | STAT | 08/10/2019 | | Results for this | | METABOLIC PANEL | | 1:40 PM | | procedure are in the | | | | PDT | | results section. | + +--------+ + + + | ED INFORMATION | Routin | 08/10/2019 | | | | EXCHANGE | e | 12:55 PM | | | | | | PDT | | | + +--------+ + + + +---+--------+ | | | | | Proced | | | ure | | | Note - | | | Endy, | | | Lab In | | | | | | Hlseve | | | n - | | | 08/10/ | | | 2018 | | | 12:56 | | | PM PDT | | [...] C?MRN: | | | | | | [id number] | | | [id number] | | | riteri | | | [...] | | | St. | | | [place] | | | y | | | [...] | | | St. | | | [place] | | | y | | | [...] | | | St. | | | [place] | | | y | | | [...] | | | St. | | | [place] | | | y H. | | [...] | | | St. | | | [place] | | | y H. | | [...] | | | St. | | | [place] | | | y H. | | [...] | | | St. | | | [place] | | | y H. | | [...] | | | [phone] | | | [phone] | | | 0f | | | [...] this encounter Results ECG 12 lead (08/10/2019 3:16 PM PDT) + + + + + [...] (500), | | | | | | writer editor Rashel Polanco | | | | [...] + + CT Abdomen wo Contrast (08/10/2019 2:29 PM PDT) + + | Specimen | [...] lower quadrant. Vessels: Abdominal aorta normal in caliber. | | | No aneurysm. Veins not assessed without contrast. Lymph Nodes: | | | No adenopathy. Peritoneum and Retroperitoneum: Complex right adnexal | | | mass measures 6.3 x 4.8 cm (series 2, image 151) previously measuring | | | 5.6 x 4.2 cm on 04/02/2019. There is mild mesenteric fat stranding. | | | BODY WALL Soft Tissues: No bowel or inflamed fat containing | | | hernia, mass or hemorrhage. Bones: No acute fracture or vertebral | | | end plate destruction. No lytic or blastic lesion. IMPRESSION: | | | 1. No radiographically evident acute intra-process. 2. | | | Apparent interval increase in size of right ovarian mass. Further | | | evaluation with contrast enhanced MRI is recommended. 3. | | | Colonic diverticulosis without acute diverticulitis. 4. | | | Cholelithiasis without acute cholecystitis. 5. Mild mesenteric | | | fat stranding and omental septations likely sequela of prior | | | peritoneal dialysis catheter. Signed by: Bianka Glez, | | | Demar Sign Date/Time: 08/10/2019 2:50 PM | | + + + + + | Procedure Note | + + | Endy, Rad Results In - 08/10/2019 2:54 PM PDT | | CT ABDOMEN/PELVIS WITHOUT CONTRAST [...] | + +---------+ + + Lipase (08/10/2019 1:40 PM PDT) + + + + + + | Component | Value | Ref Range | Performed | Pathologist | | | | | At | Signature | + + + + + + | Lipase | 83 (H)Comment: Testing | 12 - 53 U/L | [facility] | | | | performed at [facility];[address] | | LABORATORY | | | | [address];[place] | | | | | | [address] | | | | + + + + + + + + | Specimen | + + | Blood | + + + + + + + | Performing | Address | City/State/Zipcode | Phone Number | | Organization | | | | + + + + + | [facility] | [address] | [place] [address] | [phone] | + + + + + Comprehensive Metabolic Panel (08/10/2019 1:40 PM PDT) + + + + + [...] 5 (L)Comment: GFR <60: | >60 | KR [...] | | | | | | [facility]D [facility] traceable | | | | | | equation.Testing | | | | | | performed at [facility];[address] | | | | | | [facility];[place], [place] | | | | | | [address] | | | | + + + + + + + + | Specimen | + + | Blood | + + + + + + + | Performing | Address | City/State/Zipcode | Phone Number | | Organization | | | | + + + + + | [facility] | [address] | [place] [address] | [phone] | + + + + + CBC with Differential (08/10/2019 1:40 PM PDT) + + + + + [...] | | | Absolute | performed at [facility];[address] | [address] | LABORATORY | | | | [address];[place] | | | | | | [address] | | | | + + + + + + + + | Specimen | + + | Blood | + + + + + + + | Performing | Address | City/State/Zipcode | Phone Number | | Organization | | | | + + + + + | [facility] | [address] | [place] [address] | [phone] | + + + + + documented [...] 4 mg 4 mg, | Given | 08/10/ | 4 mg | | | | Intravenous, EVERY 1 HOUR PRN, | | 19 3:32 | | | | | Pain, Starting Tu08/10/19 at | | PM PDT | | | | | 1326, For 2 doses | | | | | | + +--------+ +------+------+------+ +-------+ +------+---+---+ | Given | 08/10/20 | 4 mg | | | | | 19 1:41 | | | | | | PM PDT | | | | +-------+ +------+---+---+ +---+---+ | | | +---+---+ + +-------+ +------+---+---+ | ondansetron (ZOFRAN) injection | Given | 08/10/20 | 4 mg | | | | 4 mg 4 mg, Intravenous, EVERY 1 | | 19 1:41 | | | | | HOUR PRN, Nausea, Starting e | | PM PDT | | | | | 08/10/19 at 1326, For 2 doses | | | | | | + +-------+ +------+---+---+ +---+---+ | | | +---+---+ documented in this encounter
--- OUTSIDE RECORDS SUMMARY | ~2020-05-11 | XMS | Encounter Summary ---
Demographics + + + | Address | [address] | | | [place] [address] | + + + | Home Phone [...] [place], [place] | | | | | [address] | | + + + + + | Lydia Palm | ECON | [place], [place] | | | | | [address] | | + + + + + | melinda METZ" | ECON | [place], [place] | | | [place] | | [address] | | + + + + + | Jose C Oconnor | ECON | [place] | | | | | [place] | | | | | [address] | | + + + + + Care Team Providers + +------+ + | Care Detention Worker Name | Role | Phone | + +------+ + | Unknown, Physician | PCP | | + +------+ + Encounter Details +--------+ + + + + | Date | Type | Department | Care Team | Description | +--------+ + + + + | 12/07/ | Preadmit | [facility] | Qasim Pederson MD | | | 2019 | Visit | CENTER [facility] | [address] | | | | | CLINIC [address] | [place], [place] | | | | | [place], [place] | [address] | | | | | [address] | | | | | | [phone] | | | +--------+ + + + [...] your dialysis shunt, please contact your ph ysician at [phone]. Outpatient Medications Marked as Taking for the 12/07/19 encounter (Preadmit Visit) with [facility] ROOM 2 Medication Sig Instructions omeprazole (PRILOSEC) [...] day of procedure documented in this encounter Miscellaneous Notes Preadmit Clinic Note - Ama Nguyen RN - 12/07/2019 2:30 PM PSTPt meets METS score of 4 per AHA guidelines. Denies sob and chest pain.Patient received chlorahexidine solution 4% and instructions for use. Patient instructed to wash hands frequently and watch for signs a nd symptoms of infection such as excessive redness, swelling, fever and purulent drainage fr om incision site. Patient verbalizes understanding. documented in this e ncounter Plan of [...] 0.06Comment: Testing | 0.00 - 0.10 | ALBERTINA | | | Absolute | performed at [facility];[address] | [address] | LABORATORY | | | | [address];[place] | | | | | | [address] | | | | + + + + + + + + | Specimen | + + | Blood | + + + + + + + | Performing | Address | City/State/Zipcode | Phone Number | | Organization | | | | + + + + + | [facility] | [address] | [place] [address] | [phone] | + + + + + Basic [...] [facility];[address] | | | | | | [address];[place] | | | | | | [address] | | | | + + + + + + + + | Specimen | + + | Blood | + + + + + + + | Performing | Address | City/State/Zipcode | Phone Number | | Organization | | | | + + + + + | [facility] | [address] | [place] [address] | [phone] | + + + + + documented in this encounter Visit Diagnoses Not on filedocumented in this encounter
--- OUTSIDE RECORDS SUMMARY | ~2020-05-11 | XMS | Encounter Summary ---
Demographics + + + | Address | [address] | | | [place] [address] | + + + | Home Phone [...] [place], [place] | | | | | [address] | | + + + + + | Lydia Palm | ECON | [place], [place] | | | | | [address] | | + + + + + | melinda METZ" | ECON | [place], [place] | | | reba | | [address] | | + + + + + | Jose C Oconnor | ECON | [place] | | | | | [place] | | | | | [address] | | + + + + + Care Team Providers + +------+ + | Care Stroke Belt Sander Operator Name | Role | Phone | + +------+ + | Unknown, Physician | PCP | | + +------+ + Encounter Details +--------+ + + + + | Date | Type | Department | Care Team | Description | +--------+ + + + + | 02/15/ | Transcribed | [facility] | Echaiz Correa, | Peritonitis | | 2019 | Orders | [facility] | Alonzo Jasso MD | associated with | | | | [address] | [address] | peritoneal dialysis, | | | | [place] | [place] [address] | initial encounter | | | | [address] | [phone] | ([facility]) | | | | [phone] | | | +--------+ + + + [...]
--- OUTSIDE RECORDS SUMMARY | ~2020-05-11 | XMS | Encounter Summary ---
Demographics + + + | Address | [address] | | | [place] [address] | + + + | Home Phone [...] [place], [place] | | | | | [address] | | + + + + + | Lydia Palm | ECON | [place], [place] | | | | | [address] | | + + + + + | melinda METZ" | ECON | [place], [place] | | | [place] | | [address] | | + + + + + | Jose C Oconnor | ECON | [place] | | | | | [place] | | | | | [address] | | + + + + + Care Team Providers + +------+ + | Care Lock Setter Name | Role | Phone | [...] + + | 10/12/ | Office | [facility] | Man Jeronimo, | End-stage renal | | 2019 | Visit | VASCULAR SURGERY | PA-C [address] | disease (HCC) | | | | [address] | [address] DE JESUS, | (Primary Dx) | | | | [place] | [place] [address] | | | | | [address] | [phone] | | | | | [phone] | | | +--------+---------+ + + + [...] this encounter Progress Man Iyer PA-C - 10/12/2019 1:00 PM [facility] [address] [place] [address] [place] [address] Office: [phone] DATE OF VISIT: 10/12/2019 PATIENT NAME: Ramona [...] history of HTN and ESRDwho presented to [facility] ED with fever and chills with [...] 08/26 patient was emerg ently transferred to [facility] for severe bleeding from left axilla. [...] CV: No peripheral edema, rate regular SKIN: [place], warm, dry without rash/lesion MS: ROM not [...] right arm prior to next a ppointment. Liu Brocktronically signed by Man Jeronimo PA-C at 10/12/2019 4:15 PM PS Tdocumented in this encounter Plan of Treatment Not on filedocumented as of this encounter Visit Diagnoses + + | Diagnosis | + + | End-stage renal disease (HCC) - Primary End stage renal disease | + + documented in this encounter
--- OUTSIDE RECORDS SUMMARY | ~2020-05-11 | XMS | Encounter Summary ---
Demographics + + + | Address | [address] | | | [place] [address] | + + + | Home Phone [...] [place], [place] | | | | | [address] | | + + + + + | Lydia Palm | ECON | [place], [place] | | | | | [address] | | + + + + + | melinda METZ" | ECON | [place], [place] | | | reba | | [address] | | + + + + + | Jose C Oconnor | ECON | [place] | | | | | [place] | | | | | [address] | | + + + + + Care Team Providers + +------+ + | Care Senior Architect Name | Role | Phone | + +------+ + | Juan F Sampson DO | PCP | | + +------+ + Encounter Details +--------+ + + + + | Date | Type | Department | Care Team | Description | +--------+ + + + + | 02/01/ | Hospital | [facility] | Karen Roque DO | End-stage renal | | 2019 - | Encounter | [facility] | [address] | disease ([facility]); | | | | CARE FLOOR [address] | [place] [address] | Anemia in ESRD | | 02/15/ | [address] | [phone] | (end-stage renal | | 2019 | | [place], [place] | | disease) ([facility]); | | | | [address] | | Electrolyte | | | | [phone] | | imbalance risk; | | | [...] Date of Service: 02/15/19 1141 Status: Signed Wool Batting Worker: Ginger Bass MD (Physician) Related Notes: Original Note by Ginger Bass MD (Physician) filed at 02/15/19 1145 [facility] Service: Hospitalist Physician Discharge Summary Patient ID: Ramona Oconnor 1980 39 y.o. Admit date: 02/01/2019 Discharge date: 02/15/2019 Admitting Physician: Karen Roque DO Discharge Physician: Ginger Bass MD Consultants: Treatment Team: Consulting Physician: Qasim Pederson MD Consulting Physician: Cathie Marroquin MD Admitting Provider: Karen Hercl, DO Primary Discharge Diagnoses: Peritoneal dialysis catheter [...] ent will have outpatient follow up with BUSINESS CONTINUITY PLANNER to rule out malignancy. BUSINESS CONTINUITY PLANNER referral has been se nt. Plan discussed in detail with the patient [...] Motor grossly intact. LABS: Recent Labs Lab 02/15/1943702/14/1941502/13/19432 WBC 9.63 11.19* 9.87 RBC 3.20* 3.44* 3.28* HGB 9.8* 10.6* 10.0* HCT 29.5* 32.1* 30.5* MCV 92.2 93.2 93.1 MCH 30.6 30.8 30.6 MCHC 33.2 33.1 32.9 RDW 49.4 51.6 52.1 PLT 305 303 307 MPV 8.4 8.7 8.5 DIFFTYPE AUTOMATED AUTOMATED MANUAL Recent Labs Lab 02/15/1943702/14/1941502/13/19432 NA 140 140 140 K 4.4 4.5 [...] Home Follow [place]: [place] [address] [place] [address] Schedule an appointment as soon as possible for a visit in 3 days Chago Chi MD [address] [facility] [address] [facility] [address] Schedule an appointment as soon as possible for a visit in 1 week Alonzo Correa MD [address] [facility] [address] Schedule an appointment as soon as [...] summary. This entry has been created using [employer] Speech Recognition software and [employer]. The entry has been reviewed and there [...] documented as of this encounter Progress Notes Licha Transaurelio, Provider Unknown - 02/15/2019 2:56 PM PDTFormatting of this note m ight be different from the original. Progress Notes by Soo Portillo at 02/15/19 145 Author: Soo Portillo Service: Nephrology Author Type: Coordinator Filed: 02/15/19 1458 Date of Service: 02/15/191455 Status: Signed Wool Batting Worker: Soo Portillo (Coordinator) Patients chair time is: Friday @ 10:30am-PLEASE ARRIVE FIRST DAY ONLY 02-17-19 AT 9:30AM Kimber Vieira [address] [place] [address] Thank you onver patric Armando, Provider Unknown - 02/15/2019 1:14 PM PDT Case Management by Lilo Iqbal RN at 02/15/19 1314 Author: Lilo Iqbal RN Service: (none) Author Type: Registered Nurse Filed: 02/15/19 1505 Date of Service: 02/15/19 1314 Status: Addendum Wool Batting Worker: Lilo Iqbal RN (Registered Nurse) Related Notes: Original Note by Lilo Iqbal RN (Registered Nurse) filed a t 02/15/19 1433 Pt's dialysis chair time has been moved to 10:30 am M/W/F, pt and AVS have been updated. Disposition: home with IV infusions at [facility], AVS has been updated Transportation: family to transport Patient and family in agreement with discharge plan Medicare important message (Given or N/A): given Lilo Iqbal RN onver patric Transaction, Provider Unknown - 02/15/2019 8:30 AM PDT Case Management by Lilo Iqbal RN at 02/15/19 0830 Author: Lilo Iqbal RN Service: (none) Author Type: Registered Nurse Filed: 02/15/19 1058 Date of Service: 02/15/19 0830 Status: Addendum Wool Batting Worker: Lilo Iqbal RN (Registered Nurse) Related Notes: Original Note by Lilo Iqbal RN (Registered Nurse) filed a t 02/15/19 1041 KARTHIK notified Kimber Vieira that pt will not be making her dialysis appt today. Due to pt's Home Health orders possibly not going through until Friday and pt's preferri ng OPP vs Home Infusions, KARTHIK contacted Soo, dialysis coordinator, to see if pt's dialysis chair time can be pushed up in order for her to make her IV abx infusions time in [facility]. Soo will return call to . CM contacted [facility] to verify abx order had been received and they would be able to place peripheral IV's for daily infusions. RN agreed. KARTHIK received a call back from Soo stating Kimber, [place], and [facility] are completely booked and are unable to accommodate an earlier dialysis time for pt to allow mor e time for her to travel. KARTHIK verified with roll threader operator that pt should have dialysis complete d by 3:00 pm everyday. CM updated pt and pt's spouse regarding travel time and they are in a greement with the plan. CM contacted [facility]PP that states they can push the pt's abx infusions to 5:30 pm. CM scheduled pt's abx infusions to start tomorrow 02/16 at 5:30 pm. MICHELLE Curran from [facility] states she will try to get approval for gas vouchers to p lucianovide to the pt. KARTHIK discussed with MICHELLE Charlesbox printer from [facility], to verify that pt's insuran ce will cover the cost of the abx therapy as it is out of the state of [place]. Araceli returned call back to KARTHIK stating that [facility] in [place] is in pt's insurance ne twork and will not require a prior auth. Araceli will contact pt and pt's to verify out of pocket cost. onver patric Transaction, Provider Unknown - 02/15/2019 5:37 AM PDT Nurse Progress Note by Fred Prater RN at 02/15/1937 Author: Fred Prater RN Service: (none) Author Type: Registered Nurse Filed: 02/15/19 0540 Date of Service: 02/15/19536 Status: Signed Wool Batting Worker: Fred Prater RN (Registered Nurse) Pt has [...] 02/14/191840 Date of Service: 02/14/191839 Status: Signed Wool Batting Worker: Jalil More RN (Registered Nurse) Patient resting in room with family at bedside. VSS during shift. Phenergan given for nause a in special programs director with good relief. Dialysis scheduled for 6 am on 02/15/19. No further acute changes from previous assessment. Chart review complete. JALIL MORE onver patric Transaction, Provider Unknown - 02/14/2019 3:34 PM PDT Progress Notes by Stepan Carey RPH at 02/14/19 153 Author: Stepan Carey RPH Service: Pharmacy Author Type: Pharmacist Filed: 02/14/191533 Date of Service: 02/14/191533 Status: Signed Wool Batting Worker: Stepan Carey RPH (Pharmacist) Vancomycin Monitoring Subjective Pharmacy to dose vancomycin per protocol. Diagnosis: Abdominal Infection. Vancomycin Day: 6 Objective Lab Results Component Value Date/Time CREATININE 8.5 (H) 02/14/2019 04:16 AM WBC 11.19 (H) 02/14/2019 04:16 AM Wt= 80 kg, CrCl= HD patient, Tmax afeb Cultures= MRSA Nare - neg; Bloodx2 [id number]; Body fluid/peritoneal fluid - NGTD. Other A bx= Meropenem. Current Vancomycin Dose = HD protocol Assessment Trough goal: 15- 20 ug/mL, Plan Continue vancomycin HD protocol. No levels indicated at this time. No HD documented for today. Pharmacist: Stepan Carey Ginger Caballero MD - 02/14/2019 10:46 AM PDTFormatting of this note might be different from t he original. Progress Notes by Ginger Bass MD at 02/14/19 1046 Author: Ginger Bass MD Service: Hospitalist Author Type: Physician Filed: 02/14/19 1322 Date of Service: 02/14/191045 Status: Signed Wool Batting Worker: Ginger Bass MD (Physician) [facility] Service: Hospitalist Progress Note Hospital Day: [...] Psychiatric: Normal mood. DATA Recent Labs Lab 02/14/1941502/13/19 0433 02/12/19 0549 WBC 11.19* 9.87 11.02* RBC 3.44* 3.28* 3.29* HGB 10.6* 10.0* 9.9* HCT 32.1* 30.5* 30.4* MCV 93.2 93.1 92.4 MCH 30.8 30.6 30.2 MCHC 33.1 32.9 32.7 RDW 51.6 52.1 52.5 PLT 303 307 308 MPV 8.7 8.5 8.8 DIFFTYPE AUTOMATED MANUAL AUTOMATED Recent Labs Lab 02/14/1941502/13/19 0433 02/12/19 0549 NA 140 140 141 K 4.5 [...] AM This entry has been created using [employer] Speech Recognition software and [employer]. The entry has been reviewed and there may still exist sound alike word errors. onversion Trans action, Provider Unknown - 02/14/2019 6:14 AM PDT Nurse Progress Note by Shelli Mukherjee RN at 02/14/19613 Author: Shelli Mukherjee RN Service: (none) Author Type: Registered Nurse Filed: 02/14/19614 Date of Service: 02/14/19613 Status: Signed Wool Batting Worker: Shelli Mukherjee RN (Registered Nurse) A/Ox4. VSS. [...] 02/13/191901 Date of Service: 02/13/191899 Status: Signed Wool Batting Worker: Jalil More RN (Registered Nurse) Patient nauseated at beginning of shift. Phenergan given with good results. No c/o pain thi s shift. VSS. No further acute changes from previous assessment. Chart review complete. JALIL MORE Ginger Caballero MD - 02/13/2019 12:54 PM PDTFormatting of this note might be different from t brant original. Progress Notes by Ginger Bass MD at 02/13/19 1254 Author: Ginger Bass MD Service: Hospitalist Author Type: Physician Filed: 02/13/19 1334 Date of Service: 02/13/19 1254 Status: Signed Wool Batting Worker: Ginger Bass MD (Physician) [facility] Service: Hospitalist Progress Note Hospital Day: [...] Psychiatric: Appears depressed. DATA Recent Labs Lab 02/13/1943202/12/19 0549 02/11/19 0608 WBC 9.87 11.02* 11.67* RBC 3.28* 3.29* 3.15* HGB 10.0* 9.9* 9.5* HCT 30.5* 30.4* 29.1* MCV 93.1 92.4 92.3 MCH 30.6 30.2 30.1 MCHC 32.9 32.7 32.6 RDW 52.1 52.5 51.6 PLT 307 308 280 MPV 8.5 8.8 8.8 DIFFTYPE MANUAL AUTOMATED MANUAL Recent Labs Lab 02/13/1943202/12/19 0549 02/11/19 0608 NA 140 141 140 [...] PM This entry has been created using [employer] Speech Recognition software and [employer]. The entry has been reviewed and there may still exist sound alike word errors. Linden Kincaid MD - 02/13/2019 11:16 AM PDT Progress Notes by Linden Alonzo MD at 02/13/19 1116 Author: Linden Alonzo MD Service: Nephrology Author Type: Physician Filed: 02/13/192106 Date of Service: 02/13/191115 Status: Signed Wool Batting Worker: Linden Alonzo MD (Physician) [facility] Service: NEPHROLOGY Progress Note Ramona Oconnor 39 y.o. [id number] female [facility] Hospital Day: LOS: 12 days Patient with PMH [...] 12/16/15 showed normal sized kidneys. 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 GERD (gastroesophageal reflux disease) Hypercalcemia 09/07/2017 Hyperphosphatemia 10/28/2015 Hypocalcemia 10/28/2015 Hypokalemia 06/04/2017 Itching 10/28/2015 Metabolic acidosis 10/28/2015 Obesity Peritonitis associated with peritoneal dialysis (HCC) 01/24/2017 Peritonitis due to infected peritoneal dialysis catheter (HCC) 12/08/2018 Secondary hyperparathyroidism (HCC) Uremia 10/28/2015 Past Surgical History Procedure Laterality Date CATHETER REMOVAL N/A 02/04/2019 Procedure: DIALYSIS CATHETER - REMOVAL; Surgeon: Qasim Pederson MD; Location: [facility] OR ; Service: Vascular; Laterality: N/A; Infected PD catheter removal ESOPHAGOGASTRODUODENOSCOPY N/A 09/10/2017 Procedure: ESOPHAGOGASTRODUODENOSCOPY; Surgeon: Beena Peters MD; Location: [facility]; Service: Gastroenterology; Laterality: N/A; PERITONEAL CATHETER INSERTION N/A 10/28/2015 Procedure: LAPAROSCOPIC - PERITONEAL DIALYSIS CATH INSERTION; Surgeon: Mundo Ramos MD; Lo cation: [facility] MA[facility] OR; Service: Vascular; Laterality: N/A; [...] UNDERSTANDING LINDEN ALONZO MD 02/13/2019 JUAN F QUAEMPTS Seen earlier and charting completed later Dictation software, [employer], used which may contain error for similar [...] 02/13/19554 Date of Service: 02/13/19552 Status: Signed Wool Batting Worker: Shelli Mukherjee RN (Registered Nurse) A/Ox4. VSS. [...] 02/12/191942 Date of Service: 02/12/191941 Status: Signed Wool Batting Worker: Jalil Benguiat, RN (Registered Nurse) Patient continues to rest [...] Notes by Esteban العلي MD at 02/12/19 9825 Author: Esteban العلي MD Service: Internal Medicine Author Type: Physician Filed: 02/12/19 1633 Date of Service: 02/12/191628 Status: Signed Wool Batting Worker: Esteban العلي MD (Physician) [facility] Service: Hospitalist Progress Note Hospital Day: LOS: 11 days SUBJECTIVE Feels good Tired of being here Wants to go home Patient Summary: Ms. 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 She was afebrile but [...] has been accepted to continue HD at [facility] dialysis on a MWF schedule. Was on [...] Edward Sign Date/Time: 2019 11:54 AM Us Arnp Pelvis Transabd/endovaginal Result Date: 02/01/2019 1. Moderate [...] figure out how to arrange this. D/w heel caser, ID, renal. ESRD On HD per sales strategy manager noted. HD setup MWF at [facility]. S/p tunneled catheter placement 02/05/19 HTN BP [...] and management as well as Computerized Physician Growth Media Mixer Mushroom. Disposition: Home ? Facility? Code Status: Full Code Esteban العلي MD 02/12/2019 4:29 PM onversion Transactio n, Provider Unknown - 02/12/2019 10:24 AM PDT Progress Notes by Stepan Carey RPH at 02/12/19 1024 Author: Stepan Carey RPH Service: Pharmacy Author Type: Pharmacist Filed: 02/12/19 1024 Date of Service: 02/12/19 1024 Status: Signed Wool Batting Worker: Stepan Carey RPH (Pharmacist) Vancomycin Monitoring Subjective Pharmacy to dose vancomycin per protocol. Diagnosis: Abdominal infection. Vancomycin Day: 4 Objective Lab Results Component Value Date/Time CREATININE 8.9 (H) 02/12/2019 05:49 AM WBC 11.02 (H) 02/12/2019 05:49 AM Wt= 81.8 kg, CrCl= HD patient, Tmax afeb Cultures= MRSA Nare - neg; Bloodx2 [id number]; Body fluid/peritoneal fluid - NGTD. Other A [...] Date of Service: 02/12/19 1007 Status: Signed Wool Batting Worker: Alonzo Correa MD (Physician) [facility] Service: Infectious Diseases Progress Note Hospital [...] Value Units Date/Time Fluid culture w/gram stain [[id number]] Collected: 02/01/19 0751 Specimen: Body Fluid from [...] to complete OPAT with her PCP in [place]. 4. Mild elevation of procalcitonin, expected in [...] Case Management by Lilo Iqbal RN at 02/12/19 09 Author: Lilo Iqbal RN Service: (none) Author Type: Registered Nurse Filed: 02/15/19 1055 Date of Service: 02/12/19915 Status: Addendum Wool Batting Worker: Lilo Iqbal RN (Registered Nurse) Related Notes: Original Note by Lilo Iqbal RN (Registered Nurse) filed a t 02/12/19 4412 KARTHIK notified Kimber Vieira that pt will not be making her dialysis appt today. KARTHIK faxed abx script and chart notes to Mercedez at [facility]. Mercedez states that the ir RN will be contacting CM on instructions to set up outpt abx infusions. 11:00 KARTHIK received a call from [facility] MICHELLE Curran. Bina states they do not have an MD [facility] privileges and their pt's that are discharged with abx usually do in home infusio ns. KARTHIK spoke to pt again today about the possibility of doing in home abx. Pt states she wou ld rather drive to [facility] every day instead of doing abx at home. 11:10 KARTHIK contacted OPP through [facility] that states they will be able to accept pt for ab x therapy once insurance approves. KARTHIK faxed script and ID notes to [facility] #[phone]. Pt's abx is scheduled for a PM dose. [facility] states the latest they can administer the abx is 5:00 pm. Pt's dialysis chair time is at 11:30 am in [place]. 12:20 Pt decided she would be better off doing abx at home instead of [place] dialysis and abx appts. CM placed referral and faxed script and paperwork to Kassidy Parker. Tena states that [facility] PCP may not be able to sign Home Health orders in order to set up Home Health with outpt abx therapy. Tefna states that home health orders wi ll have to be faxed to BALJIT Nagy and Dr. [place] #[phone] to be approved, a nd may take [...] 02/12/191918 Date of Service: 02/12/19844 Status: Signed Wool Batting Worker: Linden Alonzo MD (Physician) [facility] Service: NEPHROLOGY Dialysis/ Progress Note Ramona Oconnor 39 y.o. [id number] female [facility] Day: LOS: 11 days Patient with [...] 10/25/15 showed normal sized kidneys. 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 GERD (gastroesophageal reflux disease) Hypercalcemia 09/07/2017 Hyperphosphatemia 10/28/2015 Hypocalcemia 10/28/2015 Hypokalemia 06/04/2017 Itching 10/28/2015 Metabolic acidosis 10/28/2015 Obesity Peritonitis associated with peritoneal dialysis (HCC) 01/24/2017 Peritonitis due to infected peritoneal dialysis catheter (HCC) 12/08/2018 Secondary hyperparathyroidism (HCC) Uremia 10/28/2015 Past Surgical History Procedure Laterality Date CATHETER REMOVAL N/A 02/04/2019 Procedure: DIALYSIS CATHETER - REMOVAL; Surgeon: Qasim Pederson MD; Location: [facility] OR ; Service: Vascular; Laterality: N/A; Infected PD catheter removal ESOPHAGOGASTRODUODENOSCOPY N/A 09/10/2017 Procedure: ESOPHAGOGASTRODUODENOSCOPY; Surgeon: Beena Peters MD; Location: [facility]; Service: Gastroenterology; Laterality: N/A; PERITONEAL CATHETER INSERTION N/A 10/28/2015 Procedure: LAPAROSCOPIC - PERITONEAL DIALYSIS CATH INSERTION; Surgeon: Mundo Ramos MD; Lo cation: [facility]; Service: Vascular; Laterality: N/A; [...] earlier and charting completed later Dictation software, [employer], used which may contain error for similar sounding words even af ter review. Personal communication requested for any clarification. Portions of my notes may have been carried over for continuity of care. onversion Transaction, Provider Unknown - 02/12/2019 5:12 AM PDTFormatting of this note might be different from t he original. Nurse Progress Note by hSelli Mukherjee RN at 02/12/19511 Author: Shelli Mukherjee RN Service: (none) Author Type: Registered Nurse Filed: 02/12/19514 Date of Service: 02/12/19511 Status: Signed Wool Batting Worker: Shelli Mukherjee RN (Registered Nurse) A/Ox4, VSS, [...] 02/11/191849 Date of Service: 02/11/191845 Status: Signed Wool Batting Worker: Esteban العلي MD (Physician) [facility] Service: Hospitalist Progress Note Hospital Day: LOS: 10 days SUBJECTIVE No pain today in belly No nausea Took shower, feels good Patient Summary: Ms. 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 She was afebrile but [...] has been accepted to continue HD at [place] dialysis on a MWF schedule. Was on [...] Edward Sign Date/Time: 2019 11:54 AM Us Arnp Pelvis Transabd/endovaginal Result Date: 02/01/2019 1. Moderate [...] pain abx changed to merrem, vanco from [facility] Plan to c/w Merrem. Will need either central tunneled cath or peripheral line for outpt iv abx. Unable to given merrem with HD. So will need to come outpt facility? D/w heel caser, ID, renal. Patient prefers peripheral line ESRD On HD per sales strategy manager noted. HD setup MWF at [facility]. S/p tunneled catheter placement 02/05/19 HTN BP [...] and management as well as Computerized Physician Growth Media Mixer Mushroom. Disposition: Home ? Facility? Code Status: Full Code Esteban العلي MD 02/11/2019 6:46 PM onversion Transactio n, Provider Unknown - 02/11/2019 2:45 PM PDT Progress Notes by Isaiah Grimaldo RD at 02/11/19 3127 Author: Isaiah Grimaldo RD Service: (none) Author Type: Registered Dietitian Filed: 02/11/19 1447 Date of Service: 02/11/191444 Status: Signed Wool Batting Worker: Isaiah Grimaldo RD (Registered Dietitian) 02/11/19 1433 Subjective Timepoint Follow up Pt c/o H [...] she does not like the texuture of Novasourc e renal as is not drinking it. [...] Date of Service: 02/11/19 1200 Status: Addendum Wool Batting Worker: Lilo Iqbal RN (Registered Nurse) Related Notes: Original Note by Lilo Iqbal RN (Registered Nurse) filed a t 02/12/19 1047 Per ID MD pt will be needing abx infusions outpt, once discharged. CM discussed IV abx opti ons with pt, home infusion vs OPP at [facility]. Pt is not wanting to do in home antibioti cs and prefers to go into the hospital to complete abx's. CM will fax abx script once availa ble to pt's PCP as our ID MD does not have privileges in [place]. Linden Kincaid MD - 02/11/2019 11:39 AM PDTFormatting of this note might be different from the orig inal. Progress Notes by Linden Alonzo MD at 02/11/19 1139 Author: Linden Alonzo MD Service: Nephrology Author Type: Physician Filed: 02/18/19 4692 Date of Service: 02/11/19 1139 Status: Signed Wool Batting Worker: Linden Alonzo MD (Physician) [facility] Service: NEPHROLOGY Progress Note Ramona Oconnor 39 y.o. [id number] female [facility] Hospital Day: LOS: 10 days Patient with PMH [...] 10/25/15 showed normal sized kidneys. 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 GERD (gastroesophageal reflux disease) Hypercalcemia 09/07/2017 Hyperphosphatemia 10/28/2015 Hypocalcemia 10/28/2015 Hypokalemia 06/04/2017 Itching 10/28/2015 Metabolic acidosis 10/28/2015 Obesity Peritonitis associated with peritoneal dialysis (HCC) 01/24/2017 Peritonitis due to infected peritoneal dialysis catheter (HCC) 12/08/2018 Secondary hyperparathyroidism (HCC) Uremia 10/28/2015 Past Surgical History Procedure Laterality Date CATHETER REMOVAL N/A 02/04/2019 Procedure: DIALYSIS CATHETER - REMOVAL; Surgeon: Qasim Pederson MD; Location: [facility] ; Service: Vascular; Laterality: N/A; Infected PD catheter removal ESOPHAGOGASTRODUODENOSCOPY N/A 09/10/2017 Procedure: ESOPHAGOGASTRODUODENOSCOPY; Surgeon: Beena Peters MD; Location: [facility]; Service: Gastroenterology; Laterality: N/A; PERITONEAL CATHETER INSERTION N/A 10/28/2015 Procedure: LAPAROSCOPIC - PERITONEAL DIALYSIS CATH INSERTION; Surgeon: Mundo Ramos MD; Lo cation: [facility]; Service: Vascular; Laterality: N/A; [...] hemodialysis.The patient has been evaluated by his security rep who determined that he is a suitable candidate to undergo hemodialysis. The patient has received appropriate training re garding hemodialysis. The patient understands the benefit and purpose of the planned procedu re of tunneled hemodialysis catheter insertion is to allow the patient to receive hemodialys is while waiting for a termite exterminator hemodialysis access such as arteriovenous venous [...] earlier and charting completed later Dictation software, [employer], used which may contain error for similar sounding words even af ter review. Personal communication requested for any clarification. Portions of my notes may have been carried over for continuity of care. Alonzo Cool MD - 02/11/2019 10:22 AM PDTFormatting of this note might be different from the origi nal. Progress Notes by Alonzo Correa MD at 02/11/19 1022 Author: Alonzo Correa MD Service: Infectious Disease Author Type: Physic uma Filed: 02/11/191946 Date of Service: 02/11/19 1022 Status: Signed Wool Batting Worker: Alonzo Correa MD (Physician) [facility] Service: Infectious Diseases Progress Note Hospital [...] Value Units Date/Time Fluid culture w/gram stain [[id number]] Collected: 02/01/19 0751 Specimen: Body Fluid from [...] to complete OPAT with her PCP in [place]. 4. Mild elevation of procalcitonin, expected in [...] 02/11/19521 Date of Service: 02/11/19521 Status: Signed Wool Batting Worker: Frances Tineo RN (Registered Nurse) Tmax 99.2. [...] Internal Medicine Author Type: Physician Filed: 02/11/19 1846 Date of Service: 02/10/191836 Status: Signed Wool Batting Worker: Esteban العلي MD (Physician) [facility] Service: Hospitalist Progress Note Hospital Day: LOS: 9 days SUBJECTIVE C/o belly pain 5/10, dull achy better today Nausea better Patient Summary: Ms. 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 She was afebrile but [...] has been accepted to continue HD at [place] dialysis on a MWF schedule. Scheduled Medications [...] Edward Sign Date/Time: 2019 11:54 AM Us Arnp Pelvis Transabd/endovaginal Result Date: 02/01/2019 1. Moderate [...] pain abx changed to merrem, vanco from [facility] No need for imaging, no ct needed for now ESRD On HD per sales strategy manager noted. HD setup MWF at [place]. S/p tunneled catheter placement 02/05/19 Hypokalemia Defer [...] and management as well as Computerized Physician [employer]. Disposition: Home Code Status: Full Code Esteban العلي MD 02/10/2019 6:37 PM inden Alonzo MD - 2:45 PM PDT Progress Notes by Linden Alonzo MD at 02/10/19 6233 Author: Linden Alonzo MD Service: Nephrology Author Type: Physician Filed: 02/17/192119 Date of Service: 02/10/191444 Status: Signed Wool Batting Worker: Linden Alonzo MD (Physician) [facility] Service: NEPHROLOGY Dialysis/ Progress Note Ramona Oconnor 39 y.o. [id number]/8127-1 female [facility] Hospital Day: LOS: 9 days Patient with [...] 10/25/15 showed normal sized kidneys. 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 GERD (gastroesophageal reflux disease) Hypercalcemia 09/07/2017 Hyperphosphatemia 10/28/2015 Hypocalcemia 10/28/2015 Hypokalemia 06/04/2017 Itching 10/28/2015 Metabolic acidosis 10/28/2015 Obesity Peritonitis associated with peritoneal dialysis (HCC) 01/24/2017 Peritonitis due to infected peritoneal dialysis catheter (HCC) 12/08/2018 Secondary hyperparathyroidism (HCC) Uremia 10/28/2015 Past Surgical History Procedure Laterality Date CATHETER REMOVAL N/A 02/04/2019 Procedure: DIALYSIS CATHETER - REMOVAL; Surgeon: Qasim Pederson MD; Location: [facility] ; Service: Vascular; Laterality: N/A; Infected PD catheter removal ESOPHAGOGASTRODUODENOSCOPY N/A 09/10/2017 Procedure: ESOPHAGOGASTRODUODENOSCOPY; Surgeon: Beena Peters MD; Location: [facility]; Service: Gastroenterology; Laterality: N/A; PERITONEAL CATHETER INSERTION N/A 10/28/2015 Procedure: LAPAROSCOPIC - PERITONEAL DIALYSIS CATH INSERTION; Surgeon: Mundo Ramos MD; Lo cation: [facility]; Service: Vascular; Laterality: N/A; [...] hemodialysis.The patient has been evaluated by his security rep who determined that he is a suitable candidate to undergo hemodialysis. The patient has received appropriate training re garding hemodialysis. The patient understands the benefit and purpose of the planned procedu re of tunneled hemodialysis catheter insertion is to allow the patient to receive hemodialys is while waiting for a snf hemodialysis access such as arteriovenous venous fistula [...] earlier and charting completed later Dictation software, FuelMiner, used which may contain error for similar sounding words even af ter review. Personal communication requested for any clarification. Portions of my notes may have been carried over for continuity of care. onversion Transaction, Provider Unknown - 02/10/2019 10:05 AM PDTFormatting of this note might be different from t he original. Progress Notes by Stepan Carey RPH at 02/10/19 1005 Author: Stepan Carey RPH Service: Pharmacy Author Type: Pharmacist Filed: 02/10/19 1005 Date of Service: 02/10/19 1005 Status: Signed Wool Batting Worker: Stepan Carey RPH (Pharmacist) Vancomycin Monitoring Subjective Pharmacy to dose vancomycin per protocol. Diagnosis: Abdominal infection. Vancomycin Day: 2 Objective Lab Results Component Value Date/Time CREATININE 9.9 (H) 02/10/2019 05:17 AM WBC 14.51 (H) 02/09/2019 05:07 AM Wt= 83.7 kg, CrCl= HD, Tmax afeb Cultures= MRSA Nare - neg; Bloodx2 [id number]; Body fluid/peritoneal fluid - NGTD. Other A [...] Infectious Disease Author Type: Alex uma Filed: 02/10/192120 Date of Service: 02/10/19999 Status: Signed Wool Batting Worker: Alonzo Correa MD (Physician) [facility] Service: Infectious Diseases Progress Note Hospital [...] 1010 Date of Service: 02/10/19914 Status: Addendum Wool Batting Worker: Lilo Iqbal RN (Registered Nurse) Related Notes: [...] 02/10/19522 Date of Service: 02/10/19522 Status: Signed Wool Batting Worker: Frances Tineo RN (Registered Nurse) VSS. C/o [...] 02/09/192244 Date of Service: 02/09/192244 Status: Signed Wool Batting Worker: April Chacon RPH (Pharmacist) Initiation of Vancomycin Pharmacy Dosing Ramona Oconnor 39 y.o. female 1.575 m (5' 2") 82 kg (180 lb 12.4 oz) Body mass index is 33.06 kg/m. [place] body weight: 50.1 kg (110 lb 7.2 [...] Pharmacist: April Chacon 02/09/2019 10:42 PM onver ptaric Transaction, Provider Unknown - 02/09/2019 6:06 PM PDT Nurse Progress Note by Misty Camacho RN at 02/09/191805 Author: Misty Camacho RN Service: (none) Author Type: Registered Nurse Filed: 02/09/191809 Date of Service: 02/09/191805 Status: Signed Wool Batting Worker: Misty Camacho RN (Registered Nurse) Pt A&Ox4, VSS at this time. Pain managed with PRN norco and nausea managed with PRN phenerg an and zofran. Pt tolerated PO this evening. Started on vancomycin and meropenum per MD anayeli gilman Pt to continue IV abx with dialysis in [place] when medically stable. Otherwise no acut e changes this shift. End of shift audit complete. Misty Camacho RN Esteban Yoder MD - 02/09/2019 3:01 PM PDTFormatting of this note might be different from the or iginal. Progress Notes by Esteban العلي MD at 02/09/19 1501 Author: Esteban العلي MD Service: Internal Medicine Author Type: Physician Filed: 02/09/19 1500 Date of Service: 02/09/19 1501 Status: Signed Wool Batting Worker: Esteban العلي MD (Physician) [facility] Service: Hospitalist Progress Note Hospital Day: LOS: 8 days SUBJECTIVE C/o belly pain 5/10 Nausea, not eating Patient Summary: Ms. 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 She was afebrile but [...] has been accepted to continue HD at [place] dialysis on a MWF schedule. Scheduled Medications [...] Edward Sign Date/Time: 2019 11:54 AM Us Arnp Pelvis Transabd/endovaginal Result Date: 02/01/2019 1. Moderate [...] of wbc ^ ESRD On HD per sales strategy manager noted. HD setup MWF at [place]. S/p tunneled catheter placement 02/05/19 Hypokalemia Defer [...] and management as well as Computerized Physician [employer] Mixer Mushroom. Disposition: Home Code Status: Full Code Esteban العلي MD 02/09/2019 3:01 PM Alonzo Cool MD - 02/09/2019 11:18 AM PDTFormatting of this note might be different from the ave ginal. Progress Notes by Alonzo Correa MD at 02/09/19 111 Author: Alonzo Correa MD Service: Infectious Disease Author Type: Physic uma Filed: 02/09/19 1709 Date of Service: 02/09/191117 Status: Signed Wool Batting Worker: Alonzo Correa MD (Physician) [facility] Service: Infectious Diseases Progress Note Hospital [...] she is quite sedated at the moment, jaylon cisse. REVIEW OF SYSTEMS GI: denies diarrhea, [...] MD Service: Nephrology Author Type: Physician Filed: 02/16/19 6902 Date of Service: 02/09/191048 Status: Signed Wool Batting Worker: Linden Alonzo MD (Physician) [facility] Service: NEPHROLOGY Dialysis/ Progress Note Ramona Oconnor 39 y.o. [id number]/8127-1 female [facility] Hospital Day: LOS: 8 days Patient with [...] 10/25/15 showed normal sized kidneys. 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 GERD (gastroesophageal reflux disease) Hypercalcemia 09/07/2017 Hyperphosphatemia 10/28/2015 Hypocalcemia 10/28/2015 Hypokalemia 06/04/2017 Itching 10/28/2015 Metabolic acidosis 10/28/2015 Obesity Peritonitis associated with peritoneal dialysis (HCC) 01/24/2017 Peritonitis due to infected peritoneal dialysis catheter (HCC) 12/08/2018 Secondary hyperparathyroidism ([facility]) Uremia 10/28/2015 Past Surgical History Procedure Laterality Date CATHETER REMOVAL N/A 02/04/2019 Procedure: DIALYSIS CATHETER - REMOVAL; Surgeon: Qasim Pederson MD; Location: [facility] ; Service: Vascular; Laterality: N/A; Infected PD catheter removal ESOPHAGOGASTRODUODENOSCOPY N/A 09/10/2017 Procedure: ESOPHAGOGASTRODUODENOSCOPY; Surgeon: Beena Peters MD; Location: [facility]; Service: Gastroenterology; Laterality: N/A; PERITONEAL CATHETER INSERTION N/A 10/28/2015 Procedure: LAPAROSCOPIC - PERITONEAL DIALYSIS CATH INSERTION; Surgeon: Mundo Ramos MD; Lo cation: [facility]; Service: Vascular; Laterality: N/A; [...] hemodialysis.The patient has been evaluated by his security rep who determined that he is a suitable candidate to undergo hemodialysis. The patient has received appropriate training re garding hemodialysis. The patient understands the benefit and purpose of the planned procedu re of tunneled hemodialysis catheter insertion is to allow the patient to receive hemodialys is while waiting for a snf hemodialysis access such as arteriovenous venous fistula [...] earlier and charting completed later Dictation software, FuelMiner, used which may contain error for similar [...] 02/08/191748 Date of Service: 02/08/191745 Status: Addendum Wool Batting Worker: Misty Camacho RN (Registered Nurse) Related Notes: [...] pain and situation. [facility] Pt refused all meals and renvela throughout shift. Dietary supplementation started by nutrition, in pts fridge. Otherwise no acute changes this shift. End of shift audit complete. Misty Camacho RN onver patric Transaction, Provider Unknown - 02/08/2019 4:18 PM PDT Progress Notes by Janet Gutierrez RD at 02/08/19 1618 Author: Janet Gutierrez RD Service: (none) Author Type: Registered Dietitian Filed: 02/08/19 7325 Date of Service: 02/08/191617 Status: Signed Wool Batting Worker: Janet Gutierrez RD (Registered Dietitian) 02/08/19 1600 [...] Replacement or Supplement Notified kitchen to send [facility] Renal and RN/pt c an order prn. [...] Estimated Energy Needs Total Energy Estimated Needs 1423-1428 kcal/day Method for Estimating Needs 25-30 kcal/kg based on adj BW of 57.8 kg Estimated Protein Needs Total Protein Estimated Needs 69-87 g/day Method for Estimating Needs 1.2-1.5 g/kg based on adj BW of 57.8 kg Recommendations Recommended energy needs Renal diet as ordered. [facility] Renal, pt/RN to order as needed. Encourage po intake with protein rich foods. Monitor and follow as indicated. Nutritional Risk Nutritional risk High Follow up date 02/11/[address] Esteban Yoder MD - 02/08/2019 4:04 PM PDTFormatting of this note might be different from the or iginal. Progress Notes by Esteban العلي MD at 02/08/19 1604 Author: Esteban العلي MD Service: Internal Medicine Author Type: Physician Filed: 02/09/19 9844 Date of Service: 02/08/19 1604 Status: Signed Wool Batting Worker: Esteban العلي MD (Physician) [facility] Service: Hospitalist Progress Note Hospital Day: LOS: 7 days SUBJECTIVE Feels okay, tired of being here Patient Summary: Ms. 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 She was afebrile but [...] has been accepted to continue HD at [place] dialysis on a MW schedule. Scheduled Medications cefTAZidime 1 g Intravenous [...] and dry. PALE DATA Recent Labs Lab 02/08/19 0518 02/07/19 0645 02/06/19 0519 WBC 13.97* 13.89* 13.68* [...] Edward Sign Date/Time: 2019 11:54 AM Us Arnp Pelvis Transabd/endovaginal Result Date: 02/01/2019 1. Moderate [...] PD catheter 02/04/19 ESRD On HD per sales strategy manager noted. HD setup MWF at [place]. S/p tunneled catheter placement 02/05/19 Continue P [...] and management as well as Computerized Physician [employer] Mixer Mushroom. Disposition: Home Code Status: Full Code Esteban العلي MD 02/08/2019 4:04 PM Linden Kincaid MD - 12:15 PM PDT Progress Notes by Linden Alonzo MD at 02/08/19 1215 Author: Linden Alonzo MD Service: Nephrology Author Type: Physician Filed: 02/08/19 2267 Date of Service: 02/08/191214 Status: Signed Wool Batting Worker: Linden Alonzo MD (Physician) [facility] Service: NEPHROLOGY Dialysis/ Progress Note Ramona Oconnor 39 y.o. [id number] female [facility] Hospital Day: LOS: 7 days Patient [...] 10/25/15 showed normal sized kidneys. 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 GERD (gastroesophageal reflux disease) Hypercalcemia 09/07/2017 Hyperphosphatemia 10/28/2015 Hypocalcemia 10/28/2015 Hypokalemia 06/04/2017 Itching 10/28/2015 Metabolic acidosis 10/28/2015 Obesity Peritonitis associated with peritoneal dialysis (HCC) 01/24/2017 Peritonitis due to infected peritoneal dialysis catheter (HCC) 12/08/2018 Secondary hyperparathyroidism (HCC) Uremia 10/28/2015 Past Surgical History Procedure Laterality Date CATHETER REMOVAL N/A 02/04/2019 Procedure: DIALYSIS CATHETER - REMOVAL; Surgeon: Qasim Pederson MD; Location: [facility] ; Service: Vascular; Laterality: N/A; Infected PD catheter removal ESOPHAGOGASTRODUODENOSCOPY N/A 09/10/2017 Procedure: ESOPHAGOGASTRODUODENOSCOPY; Surgeon: Beena Peters MD; Location: [facility]; Service: Gastroenterology; Laterality: N/A; PERITONEAL CATHETER INSERTION N/A 10/28/2015 Procedure: LAPAROSCOPIC - PERITONEAL DIALYSIS CATH INSERTION; Surgeon: Mundo Ramos MD; Lo cation: [facility]; Service: Vascular; Laterality: N/A; [...] hemodialysis.The patient has been evaluated by his security rep who determined that he is a suitable candidate to undergo hemodialysis. The patient has received appropriate training re garding hemodialysis. The patient understands the benefit and purpose of the planned procedu re of tunneled hemodialysis catheter insertion is to allow the patient to receive hemodialys is while waiting for a termite exterminator hemodialysis access such as arteriovenous venous [...] earlier and charting completed later Dictation software, FuelMiner, used which may contain error for similar sounding words even af ter review. Personal communication requested for any clarification. Portions of my notes may have been carried over for continuity of care. Alonzo Cool MD - 02/08/2019 10:58 AM PDTFormatting of this note might be different from the origi nal. Progress Notes by Alonzo Correa MD at 02/08/19 1050 Author: Alonzo Correa MD Service: Infectious Disease Author Type: Physic uma Filed: 02/08/19 8712 Date of Service: 02/08/19 105 Status: Signed Wool Batting Worker: Alonzo Correa MD (Physician) [facility] Service: Infectious Diseases Progress Note Hospital [...] 02/08/19924 Date of Service: 02/08/19921 Status: Signed Wool Batting Worker: Lilo Iqbal RN (Registered Nurse) notified Kimber Vieira that pt will not be making her dialysis appt today as she is n ot medically ready for discharge. onver patric Transaction, Provider Unknown - 02/08/2019 6:48 AM PDT Nurse Progress Note by Lizz Gill RN at 02/08/19647 Author: Lizz Gill RN Service: (none) Author Type: Registered Nurse Filed: 02/08/1950 Date of Service: 02/08/19647 Status: Signed Wool Batting Worker: Lizz Gill RN (Registered Nurse) Pt c/o nausea this AM, PRN phenergan given per MAR. Lizz Gill RN onver patric Transaction, Provider Unknown - 02/08/2019 4:54 AM PDT Nurse Progress Note by Lizz Gill RN at 02/08/194 Author: Lizz Gill RN Service: (none) Author Type: Registered Nurse Filed: 02/08/19 0457 Date of Service: 02/08/19453 Status: Signed Wool Batting Worker: Lizz Gill RN (Registered Nurse) Pt A&O, [...] 02/07/191935 Date of Service: 02/07/191918 Status: Signed Wool Batting Worker: Linden Alonzo MD (Physician) [facility] Service: NEPHROLOGY Progress Note Ramona Oconnor 39 y.o. [id number] 8127/8127-1 female [facility] Day: LOS: 6 days Patient with [...] 10/25/15 showed normal sized kidneys. 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 GERD (gastroesophageal reflux disease) Hypercalcemia 09/07/2017 Hyperphosphatemia 10/28/2015 Hypocalcemia 10/28/2015 Hypokalemia 06/04/2017 Itching 10/28/2015 Metabolic acidosis 10/28/2015 Obesity Peritonitis associated with peritoneal dialysis (HCC) 01/24/2017 Peritonitis due to infected peritoneal dialysis catheter (HCC) 12/08/2018 Secondary hyperparathyroidism (HCC) Uremia 10/28/2015 Past Surgical History Procedure Laterality Date CATHETER REMOVAL N/A 02/04/2019 Procedure: DIALYSIS CATHETER - REMOVAL; Surgeon: Qasim Pederson MD; Location: [facility] ; Service: Vascular; Laterality: N/A; Infected PD catheter removal ESOPHAGOGASTRODUODENOSCOPY N/A 09/10/2017 Procedure: ESOPHAGOGASTRODUODENOSCOPY; Surgeon: Beena Peters MD; Location: [facility]; Service: Gastroenterology; Laterality: N/A; PERITONEAL CATHETER INSERTION N/A 10/28/2015 Procedure: LAPAROSCOPIC - PERITONEAL DIALYSIS CATH INSERTION; Surgeon: Mundo Ramos MD; Lo cation: [facility]; Service: Vascular; Laterality: N/A; [...] Table: I/O last 3 completed shifts: In: 1994. [P.O.:1790; I.V.:205.3] Out: - Weight change: -1.469 [...] hemodialysis.The patient has been evaluated by his security rep who determined that he is a suitable candidate to undergo hemodialysis. The patient has received appropriate training re garding hemodialysis. The patient understands the benefit and purpose of the planned procedu re of tunneled hemodialysis catheter insertion is to allow the patient to receive hemodialys is while waiting for a termite exterminator hemodialysis access such as arteriovenous venous [...] Edward Sign Date/Time: 2019 11:54 AM Us Arnp Pelvis Transabd/endovaginal Result Date: 02/01/2019 ULTRASOUND PELVIS, [...] in the left ovary. Signed by: Cedric Smlals Sign Date/Time: 02/01/2019 11:09 AM PROBLEM LIST [...] earlier and charting completed later Dictation software, [employer]iner, used which may contain error for similar sounding words even af ter review. Personal communication requested for any clarification. Portions of my notes may have been carried over for continuity of care. Esteban Yoder MD - 1:13 PM PDT Progress Notes by Esteban العلي MD at 02/07/19 1313 Author: Esteban العلي MD Service: Internal Medicine Author Type: Physician Filed: 02/07/19 8948 Date of Service: 02/07/19 0751 Status: Signed Wool Batting Worker: Esteban العلي MD (Physician) [facility] Service: Hospitalist Progress Note Hospital Day: LOS: 6 days SUBJECTIVE Feels Nausea, but better with meds No pain Patient Summary: Ms. 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 She was afebrile but [...] has been accepted to continue HD at [place] dialysis on a MWF schedule. Scheduled Medications [...] DATA Recent Labs Lab 02/07/19 0645 02/06/19 0502/05/19914 WBC 13.89* 13.68* 14.38* RBC 3.16* 3.04* 3.26* HGB 9.4* 9.0* 9.8* HCT 29.8* 27.8* 29.8* MCV 94.3 91.4 91.6 MCH 29.7 29.6 30.1 MCHC 31.5* 32.4 32.8 RDW 50.3 46.8 49.0 PLT 238 250 298 MPV 8.2 8.2 7.9 DIFFTYPE AUTOMATED MANUAL AUTOMATED Recent Labs Lab 02/07/19 0645 02/06/19 0519 02/05/19 0915 02/03/19 0602/02/19 0540 02/01/19 0318 NA 141 139 141 [...] <0.006 Recent Labs Lab 02/04/19 0647 02/03/19 0602/01/19 0318 PHOS 6.0* 5.6* 5.4* Recent Labs Lab 02/03/19 0602/01/19 0318 MG 3.2* 3.0* Invalid input(s): ABG [...] Edward Sign Date/Time: 2019 11:54 AM Us Arnp Pelvis Transabd/endovaginal Result Date: 02/01/2019 1. Moderate [...] per renal Chair time noted. MWF at [place]. S/p tunneled catheter placement 02/05/19 Continue P [...] and management as well as Computerized Physician [employer] Mixer Mushroom. Disposition: Home Code Status: Full Code Esteban العلي MD 02/07/2019 1:13 PM onversion Transactio n, Provider Unknown - 02/07/2019 3:44 AM PDT Nurse Progress Note by Marixa Terrazas RN at 02/07/19343 Author: Marixa Terrazas RN Service: (none) Author Type: Registered Nurse Filed: 02/07/1913 Date of Service: 02/07/19343 Status: Signed Wool Batting Worker: Marixa Terrazas RN (Registered Nurse) BP's soft, [...] Progress Notes by Linden Alonzo MD at 02/06/19 7843 Author: Linden Alonzo MD Service: Nephrology Author Type: Physician Filed: 02/08/19 1738 Date of Service: 02/06/191822 Status: Signed Wool Batting Worker: Linden Alonzo MD (Physician) [facility] Service: NEPHROLOGY Progress Note Ramona Oconnor 39 y.o. [id number]/8127-1 female [facility] Hospital Day: LOS: 5 days Patient with [...] 10/25/15 showed normal sized kidneys. 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 GERD (gastroesophageal reflux disease) Hypercalcemia 09/07/2017 Hyperphosphatemia 10/28/2015 Hypocalcemia 10/28/2015 Hypokalemia 06/04/2017 Itching 10/28/2015 Metabolic acidosis 10/28/2015 Obesity Peritonitis associated with peritoneal dialysis (HCC) 01/24/2017 Peritonitis due to infected peritoneal dialysis catheter (HCC) 12/08/2018 Secondary hyperparathyroidism (HCC) Uremia 10/28/2015 Past Surgical History Procedure Laterality Date CATHETER REMOVAL N/A 02/04/2019 Procedure: DIALYSIS CATHETER - REMOVAL; Surgeon: Qasim Pederson MD; Location: [facility] ; Service: Vascular; Laterality: N/A; Infected PD catheter removal ESOPHAGOGASTRODUODENOSCOPY N/A 09/10/2017 Procedure: ESOPHAGOGASTRODUODENOSCOPY; Surgeon: Beena Peters MD; Location: [facility]; Service: Gastroenterology; Laterality: N/A; PERITONEAL CATHETER INSERTION N/A 10/28/2015 Procedure: LAPAROSCOPIC - PERITONEAL DIALYSIS CATH INSERTION; Surgeon: Mundo Ramos MD; Lo cation: [facility]; Service: Vascular; Laterality: N/A; [...] hemodialysis.The patient has been evaluated by his security rep who determined that he is a suitable candidate to undergo hemodialysis. The patient has received appropriate training re garding hemodialysis. The patient understands the benefit and purpose of the planned procedu re of tunneled hemodialysis catheter insertion is to allow the patient to receive hemodialys is while waiting for a termite exterminator hemodialysis access such as arteriovenous venous [...] Edward Sign Date/Time: 2019 11:54 AM Us Arnp Pelvis Transabd/endovaginal Result Date: 02/01/2019 ULTRASOUND PELVIS, [...] earlier and charting completed later Dictation software, FuelMiner, used which may contain error for similar sounding words even af ter review. Personal communication requested for any clarification. Portions of my notes may have been carried over for continuity of care. Esteban Yoder MD - 5:53 PM PDT Progress Notes by Esteban العلي MD at 02/06/19 353 Author: Esteban العلي MD Service: Internal Medicine Author Type: Physician Filed: 02/07/19 1312 Date of Service: 02/06/191752 Status: Signed Wool Batting Worker: Esteban العلي MD (Physician) [facility] Service: Hospitalist Progress Note Hospital Day: LOS: 5 days SUBJECTIVE Feels tired, nausea Patient Summary: Ms. 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 She was afebrile but [...] has been accepted to continue HD at [facility] [facility] on a MWF schedule. Scheduled Medications [...] % 83.6 kg (184 lb 6.4 oz) 02/05/197 91/62 99.4 F (37.4 C) Oral 71 [...] and dry. PALE DATA Recent Labs Lab 02/06/1951802/05/19 0915 02/04/19 0647 WBC 13.68* 14.38* 15.37* RBC 3.04* 3.26* 3.23* HGB 9.0* 9.8* 9.8* HCT 27.8* 29.8* 28.8* MCV 91.4 91.6 89.3 MCH 29.6 30.1 30.2 MCHC 32.4 32.8 33.8 RDW 46.8 49.0 45.5 PLT 250 298 332 MPV 8.2 7.9 7.5 DIFFTYPE MANUAL AUTOMATED AUTOMATED Recent Labs Lab 02/06/19 0502/05/19 0915 02/05/19 0219 02/04/19 0647 02/03/19 0600 [...] Edward Sign Date/Time: 2019 11:54 AM Us Arnp Pelvis Transabd/endovaginal Result Date: 02/01/2019 1. Moderate [...] Started HD. Chair time noted. MWF at [place]. S/p tunneled catheter placement 02/05/19 Continue P [...] and management as well as Computerized Physician Growth Media Mixer Mushroom. Disposition: Home Code Status: Full Code Esteban العلي MD 02/06/2019 5:53 PM Alonzo Cool MD - 02/06/2019 11:30 AM PDTFormatting of this note might be different from the ave rao. Progress Notes by Alonzo Correa MD at 02/06/19 8040 Author: Alonzo Correa MD Service: Infectious Disease Author Type: Physic uma Filed: 02/07/19 1102 Date of Service: 02/06/19 3640 Status: Signed Wool Batting Worker: Alonzo Correa MD (Physician) [facility] Service: Infectious Diseases Progress Note Hospital [...] Phillip Charles RPH at 02/06/19658 Author: Phillip Charles RPH Service: Pharmacy Author Type: Pharmacist Filed: 02/06/19658 Date of Service: 02/06/19658 Status: Signed Wool Batting Worker: Phillip Charles RPH (Pharmacist) Clinical Pharmacy Note: Renal Monitoring Height: 157 cm Weight: 84 kg Serum creatinine: 13.5 mg/dL (H) 02/05/19914 Estimated creatinine clearance: 5.5 mL/min (A) Will order the following dosage adjustments: Ceftazidime 1g IV Q24H Dosing Q24 due to clinical illness. Pharmacy will continue to follow and adjust medications as needed. Phillip Charles PharmD 02/06/2019 6:57 AM Ryanne spivey Transaction, Provider Unknown - 02/06/2019 4:44 AM PDT Nurse Progress Note by Marixa Terrzaas RN at 02/06/19443 Author: Marixa Terrazas RN Service: (none) Author Type: Registered Nurse Filed: 02/06/19639 Date of Service: 02/06/19443 Status: Signed Wool Batting Worker: Marixa Terrazas RN (Registered Nurse) BP's soft, 80-100's systolic, pt denies dizziness and is easily arousable. States her BP i s sometimes in the 80's. All other VSS. Medicated for pain and nausea. Tunneled dialysis catheter site C/D/I. No other changes from shift assessment. End of shift review and 24 geovanna r chart check completed. Marixa Terrazas RN onmamta spivey Transaction, Provider Unknown - 2019 6:18 PM PDT Pharmacy Note by Phillip Charles RPH at 02/05/19 1815 Author: Phillip Charles RPH Service: Pharmacy Author Type: Pharmacist Filed: 02/05/191817 Date of Service: 02/05/191817 Status: Signed Wool Batting Worker: Phillip Charles RPH (Pharmacist) Clinical Pharmacy Note: Renal Monitoring Height: 157 cm Weight: 83 kg Serum creatinine: 13.5 mg/dL (H) 02/05/19 09 Estimated creatinine clearance: 5.5 mL/min (A) Will order the following dosage adjustments: Ceftazidime 1g IV Q48H (For CrCl <10ml/min) Pharmacy will continue to follow and adjust medications as needed. Phillip Charles, PharmJaylon 2019 6:18 PM Ryanne Armando, Provider Unknown - 2019 6:12 PM PDT Nurse Progress Note by Zabrina Rubio RN at 02/05/191811 Author: Zabrina Rubio RN Service: (none) Author Type: Registered Nurse Filed: 02/05/191820 Date of Service: 02/05/191811 Status: Signed Wool Batting Worker: Zabrina Rubio RN (Registered Nurse) Pt had [...] from the ave maira. Progress Notes by Alyce Sparks MD at 02/05/19 1637 Author: Alyce Sparks MD Service: Hospitalist Author Type: Physician Filed: 02/05/19 1646 Date of Service: 02/05/19 1637 Status: Signed Wool Batting Worker: Alyce Sparks MD (Physician) [facility] Service: Hospitalist Progress Note Hospital Day: LOS: 4 days SUBJECTIVE Patient Summary: Ms. 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 She was afebrile but [...] has been accepted to continue HD at [facility] [facility] on a MWF schedule. Events Overnight: [...] Temp Temp src Pulse Resp SpO2 Weight 03/29/19 1535 115/70 98.5 F (36.9 C) Oral [...] C) Oral 68 20 98 % - 02/04/192104 94/54 98.9 F (37.2 C) Oral 70 [...] Cervantes Sign Date/Time: 02/01/2019 4:36 PM Us Arnp Pelvis Transabd/endovaginal Result Date: 02/01/2019 1. Moderate [...] Date of Service: 02/05/19 1544 Status: Signed Wool Batting Worker: Soo Portillo (Coordinator) Patients chair time is: Friday @ 11:30am first day 02-08-19 [facility] [address] [place] [address] Thank you Marguerite Hernandez LMT - 2019 2:14 PM PDT Therapy Progress Note by DIANA Armendariz at 02/05/19 141 Author: DIANA Armendariz Service: (none) Author Type: Massage Therapist Filed: 02/05/191413 Date of Service: 02/05/191413 Status: Signed Wool Batting Worker: DIANA Armendariz (Massage Therapist) 02/05/19 141 Massage Therapy Interventions Locations Feet Massage Therapy Technique Effleurage;Petrissage;Surinamese massage Response to treatment Decreased muscle tension Linden Kincaid M D - 2019 11:46 AM PDT Progress Notes by Linden Alonzo MD at 02/05/19 1146 Author: Linden Alonzo MD Service: Nephrology Author Type: Physician Filed: 02/07/19 1933 Date of Service: 02/05/19 1146 Status: Signed Wool Batting Worker: Linden Alonzo MD (Physician) [facility] Service: NEPHROLOGY Progress Note Ramona Oconnor 39 y.o. [id number] female [facility] Hospital Day: LOS: 4 days Patient [...] 10/25/15 showed normal sized kidneys. 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 GERD (gastroesophageal reflux disease) Hypercalcemia 09/07/2017 Hyperphosphatemia 10/28/2015 Hypocalcemia 10/28/2015 Hypokalemia 06/04/2017 Itching 10/28/2015 Metabolic acidosis 10/28/2015 Obesity Peritonitis associated with peritoneal dialysis (HCC) 01/24/2017 Peritonitis due to infected peritoneal dialysis catheter (HCC) 12/08/2018 Secondary hyperparathyroidism (HCC) Uremia 10/28/2015 Past Surgical History Procedure Laterality Date CATHETER REMOVAL N/A 02/04/2019 Procedure: DIALYSIS CATHETER - REMOVAL; Surgeon: Qasim Pedreson MD; Location: [facility] MAIN OR ; Service: Vascular; Laterality: N/A; Infected PD catheter removal ESOPHAGOGASTRODUODENOSCOPY N/A 09/10/2017 Procedure: ESOPHAGOGASTRODUODENOSCOPY; Surgeon: Beena Peters MD; Location: [facility] ENDOSCOP Y; Service: Gastroenterology; Laterality: N/A; PERITONEAL CATHETER INSERTION N/A 10/28/2015 Procedure: LAPAROSCOPIC - PERITONEAL DIALYSIS CATH INSERTION; Surgeon: Mundo Ramos MD; Lo cation: [facility] MAIN OR; Service: Vascular; Laterality: N/A; [...] Table: I/O last 3 completed shifts: In: 02126 [P.O.:800; I.V.:765; Other:25335] Out: 84008 [Other:81837] Weight change: Examination: APPEARANCE: The patient is [...] in the associated interpretation and report. Us Arnp Pelvis Transabd/endovaginal Result Date: 02/01/2019 ULTRASOUND PELVIS, [...] earlier and charting completed later Dictation software, FuelMiner, used which may contain error for similar [...] Date of Service: 02/05/19 1121 Status: Addendum Wool Batting Worker: Lilo Iqbal RN (Registered Nurse) Related Notes: Original Note by Lilo Iqbal RN (Registered Nurse) filed a t 02/05/19 1127 CM informed Soo, dialysis coordinator, that pt will be transitioning from peritoneal irving lysis to hemodialysis, to assist with finding a HD chair time upon discharge. CM will contin ue to follow for discharge planning. Soo contacted CM verifying chair time for pt M/W/F @ 11:30 at [facility], starting 02/08. Abx script will need to be faxed to [facility] #[phone] p rior to discharge. onver patric Transaction, Provider Unknown - 2019 11:00 AM PDT Nurse Progress Note by Zabrina Rubio RN at 02/05/19 1100 Author: Zabrina Rubio RN Service: (none) Author Type: Registered Nurse Filed: 02/05/19 1200 Date of Service: 02/05/19 1100 Status: Signed Wool Batting Worker: Zabrina Rubio RN (Registered Nurse) This RN notified by [facility] that pt was [...] Disease Author Type: Physic uma Filed: 02/05/19 8837 Date of Service: 02/05/19 105 Status: Signed Wool Batting Worker: Alonzo Correa MD (Physician) [facility] Service: Infectious Diseases Progress Note Hospital [...] Value Units Date/Time Fluid culture w/gram stain [[id number]] Collected: 02/01/19 0751 Specimen: Body Fluid from Peritoneal Fluid Updated: 02/05/19 0646 Specimen Description PERITONEAL FLUID GRAM STAIN 1+ GRAM STAIN WBC'S SEEN GRAM STAIN NO ORGANISMS SEEN CULTURE NO GROWTH 4 DAYS Catheter tip culture [[id number]] Collected: 02/04/19 1705 Specimen: Catheter Tip Updated: 02/04/19 1900 Blood Culture Set 2 [[id number]] Collected: 02/01/19 031 Specimen: Blood from Blood Updated: 02/02/19 1335 Specimen Description BLOOD CULTURE NO GROWTH AT THIS TIME Blood Culture Set 1 [[id number]] Collected: 02/01/19 031 Specimen: Blood from Blood [...] Progress Notes by Qasim Pederson MD at 02/05/19715 Author: Qasim Pederson MD Service: Vascular Surgery Author Type: Physician Filed: 02/05/19726 Date of Service: 02/05/19715 Status: Addendum Wool Batting Worker: Qasim Pederson MD (Physician) Related Notes: Original Note by Man Jeronimo PA-C (Physician Assembly Machine Tool Setter - Certified) fi led at 02/05/19721 [facility] Service: Vascular Surgery Progress Note Hospital Day: LOS: 4 days Post-Op Day: 1 Day Post-Op SUBJECTIVE Patient Summary: The patient is a 38 y.o. female with significant past medical history of hypertension, diverticulitis, and end stage renal disease on peritoneal dialysis who pre sented to [facility] Emergency Department with complaints for worsening abdominal pain and nausea. The patient was admitted to [facility] about one month ago (01/05/19 - 01/09/19) after developing ab dominal pain and leukocytosis. She was diagnosed with bacterial peritonitis secondary to div erticulitis. She was treated with intravenous and intraperitoneal antibiotics. She was disch arged on 01/09/2019 from [facility]. She did well for a few weeks but developed severe nausea and ab dominal pain and presented to [facility] ED. She was eventually transferred to [facility] for f urther evaluation and treatment. She [...] with peritoneal dialysis catheter removal today at [facility] Operating Room. Moderate Sedation Presedation Assessment completed [...] 0404 Date of Service: 02/05/19138 Status: Signed Wool Batting Worker: Marixa Nini, RN (Registered Nurse) BP's soft 90's systolic, [...] 02/04/191849 Date of Service: 02/04/191846 Status: Addendum Wool Batting Worker: Zabrina Rubio RN (Registered Nurse) Related Notes: Original [...] Filed: 02/04/19 190 Date of Service: 02/04/19 143 Status: Signed Wool Batting Worker: Alyce Sparks MD (Physician) [facility] Service: Hospitalist Progress Note Hospital Day: LOS: 3 days SUBJECTIVE Patient Summary: Ms. 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 She was afebrile but [...] 02/04/19 0717 Gross per 24 hour Intake 73632.5 ml Output 18522 ml Net -115.5 ml Physical Exam Constitutional: [...] Cervantes Sign Date/Time: 02/01/2019 4:36 PM Us Arnp Pelvis Transabd/endovaginal Result Date: 02/01/2019 1. Moderate [...] Note by Torrie Whelan RPH at 02/04/19 112 Author: Torrie Whelan RPH Service: Pharmacy Author Type: Pharmacist Filed: 02/04/19 112 Date of Service: 02/04/191122 Status: Signed Wool Batting Worker: Torrie Whelan RPH (Pharmacist) Discussed with Dr. [...] Notes by Alonzo Correa MD at 02/04/19 112 Author: Alonzo Correa MD Service: Infectious Disease Author Type: Physic uma Filed: 02/04/19 1638 Date of Service: 02/04/191120 Status: Signed Wool Batting Worker: Alonzo Correa MD (Physician) [facility] Service: Infectious Diseases Progress Note Hospital [...] Value Units Date/Time Fluid culture w/gram stain [[id number]] Collected: 02/01/19 0751 Specimen: Body Fluid from Peritoneal Fluid Updated: 02/04/19 0711 Specimen Description PERITONEAL FLUID GRAM STAIN 1+ GRAM STAIN WBC'S SEEN GRAM STAIN NO ORGANISMS SEEN CULTURE NO GROWTH 3 DAYS Blood Culture Set 2 [[id number]] Collected: 02/01/19 0317 Specimen: Blood from Blood Updated: 02/02/19 1335 Specimen Description BLOOD CULTURE NO GROWTH AT THIS TIME Blood Culture Set 1 [[id number]] Collected: 02/01/19 0317 Specimen: Blood from Blood Updated: 02/02/19 9104 Specimen Description BLOOD CULTURE NO GROWTH AT [...] The patient will likely start hemodialysis tomorrow human resource officer after. Fluid culture is being held for 10 days. So far day #5 of antibiotic therapy. Discussed with Dr. Bridger Up MD, MPH Infectious Diseases 02/04/2019 onvers ion Transaction, Provider Unknown - 02/04/2019 9:11 AM PDT Nurse Progress Note by Zabrina Rubio RN at 02/04/19 0911 Author: Zabrina Rubio RN Service: (none) Author Type: Registered Nurse Filed: 02/04/19911 Date of Service: 02/04/19910 Status: Signed Wool Batting Worker: Zabrina Rubio RN (Registered Nurse) Spoke to [place] in [place] Pt will have u/s for mapping tomorrow morning and tunneled cath fannie l be place tomorrow afternoon. onver patric Transaction, Provider Unknown - 02/04/2019 4:04 AM PDT Nurse Progress Note by Marixa Terrazas RN at 02/04/194 Author: Marixa Terrazas RN Service: (none) Author Type: Registered Nurse Filed: 02/04/19 0525 Date of Service: 03/28/19 0404 Status: Signed Wool Batting Worker: Marixa Terrazas RN (Registered Nurse) BP's 90-100 [...] Filed: 02/03/19 1417 Date of Service: 02/03/19 1415 Status: Signed Wool Batting Worker: Lilo Iqbal RN (Registered Nurse) CM attended [...] Service: Hospitalist Author Type: Physician Filed: 02/03/19 5526 Date of Service: 02/03/19 1217 Status: Addendum Wool Batting Worker: Jamar Montoya MD (Physician) Related Notes: Original Note by Jamar Montoya MD (Physician) filed at 02/03/19 1533 [facility] Service: Hospitalist Progress Note Hospital Day: [...] 3.4* 3.6 CL 98* 101 103 CO2 27 25 27 BUN 30* 29* 25 CREATININE [...] Cervantes Sign Date/Time: 02/01/2019 4:36 PM Us Arnp Pelvis Transabd/endovaginal Result Date: 02/01/2019 1. Moderate [...] Inpatient. Code Status: Full Code Dictation and pharmacy grad intern or software, FuelMiner, used which may contain error for similar [...] 02/03/192133 Date of Service: 02/03/19827 Status: Signed Wool Batting Worker: Alonzo Correa MD (Physician) [facility] Service: Infectious Diseases Progress Note Hospital Day: LOS: 2 days Post-Op Day: * No surgery date entered * CC: Follow up on peritoneal dialysis catheter associated peritonitis SUBJECTIVE/OVERNIGHT EVENTS The patient has been afebrile, with decrease in her abdominal pain. The patient white bloo d cell count has trended down. The patient has discussed with security rep regarding removal of her peritoneal dialysis ca [...] Value Units Date/Time Fluid culture w/gram stain [[id number]] Collected: 02/01/19 0751 Specimen: Body Fluid from Peritoneal Fluid Updated: 02/03/19 1026 Specimen Description PERITONEAL FLUID GRAM STAIN 1+ GRAM STAIN WBC'S SEEN GRAM STAIN NO ORGANISMS SEEN CULTURE NO GROWTH 2 DAYS Blood Culture Set 2 [[id number]] Collected: 02/01/19 0317 Specimen: Blood from Blood Updated: 02/02/19 1335 Specimen Description BLOOD CULTURE NO GROWTH AT THIS TIME Blood Culture Set 1 [[id number]] Collected: 02/01/19 031 Specimen: Blood from Blood Updated: 02/02/19 1335 Specimen Description BLOOD CULTURE NO GROWTH AT THIS TIME Body fluid cell count [[id number]] Collected: 02/01/19 0753 Specimen: Other from Peritoneal Fluid Updated: 02/01/19 0907 FLUID TYPE PERITONEAL FLUID COLOR YELLOW APPEARANCE HAZY RBC'S <10,000 /mm3 TOTAL NUCLEATED CELLS 622 /mm3 NEUTROPHILS 48 % LYMPHOCYTES 5 % MONOCYTES/MACROPHAGES 46 % Mesothelial Cells 1 % CELLS COUNTED 100 MRSA by PCR [[id number]] Collected: 02/01/19 0328 Specimen: Nasopharyngeal from Nares(Nose) [...] Progress Note by Samira García RN at 02/03/19 050 Author: Samira García RN Service: (none) Author Type: Registered Nurse Filed: 02/03/19510 Date of Service: 02/03/19508 Status: Signed Wool Batting Worker: Samira García RN (Registered Nurse) Pt had [...] 02/02/192010 Date of Service: 02/02/192006 Status: Signed Wool Batting Worker: Alonzo Correa MD (Physician) [facility] Service: Infectious Diseases Progress Note Hospital [...] Value Units Date/Time Fluid culture w/gram stain [[id number]] Collected: 02/01/19 0755 Specimen: Body Fluid from Peritoneal Fluid Updated: 02/02/19 1810 Specimen Description PERITONEAL FLUID GRAM STAIN 1+ GRAM STAIN WBC'S SEEN GRAM STAIN NO ORGANISMS SEEN CULTURE NO GROWTH AT THIS TIME Blood Culture Set 2 [[id number]] Collected: 02/01/19316 Specimen: Blood from Blood Updated: 02/02/19 1335 Specimen Description BLOOD CULTURE NO GROWTH AT THIS TIME Blood Culture Set 1 [[id number]] Collected: 02/01/19316 Specimen: Blood from Blood Updated: 02/02/19 1335 Specimen Description BLOOD CULTURE NO GROWTH AT THIS TIME Body fluid cell count [[id number]] Collected: 02/01/19 0753 Specimen: Other from Peritoneal Fluid Updated: 02/01/19 0907 FLUID TYPE PERITONEAL FLUID COLOR YELLOW APPEARANCE HAZY RBC'S <10,000 /mm3 TOTAL NUCLEATED CELLS 622 /mm3 NEUTROPHILS 48 % LYMPHOCYTES 5 % MONOCYTES/MACROPHAGES 46 % Mesothelial Cells 1 % CELLS COUNTED 100 MRSA by PCR [[id number]] Collected: 02/01/19 0328 Specimen: Nasopharyngeal from Nares(Nose) [...] Progress Note by Marixa Juarez RN at 02/02/19 180 Author: Marixa Juarez RN Service: (none) Author Type: Registered Nurse Filed: 02/02/191826 Date of Service: 02/02/191805 Status: Signed Wool Batting Worker: Marixa Juarez RN (Registered Nurse) Tmax this shift 99.2. Upon recheck, temp 98.9. Pt rested majority of shift. PRN phenergan given as ordered for nausea. Pt has had no valerio etite this shift. Pt encouraged to eat even a small snack, pt refused. No other acute changes from previous assessment. End of shift review complete. Marixa craig RN Electronically signed by [facility] Transaction, Provider at 06/20/2019 10:58 AM Jamar Ralph MD - 02/02/2019 12:47 PM PDTFormatting of this note might be different from the or iginal. Progress Notes by Jamar Montoya MD at 02/02/19 1247 Author: Jamar Montoya MD Service: Hospitalist Author Type: Physician Filed: 02/02/19 1906 Date of Service: 02/02/19 1247 Status: Signed Wool Batting Worker: Jamar Montoya MD (Physician) [facility] Service: Hospitalist Progress Note Hospital Day: [...] personally reviewed Recent Labs Lab 02/02/19 0540 02/01/19 0318 WBC 13.74* 21.67* HGB 10.2* 9.8* HCT 31.5* 29.9* PLT 401* 355 Recent Labs Lab 02/02/19 0540 02/01/19 0318 NA 140 141 K 3.4* 3.6 CL [...] Cervantes Sign Date/Time: 02/01/2019 4:36 PM Us Arnp Pelvis Transabd/endovaginal Result Date: 02/01/2019 1. Moderate [...] Inpatient. Code Status: Full Code Dictation and pharmacy grad intern or software, FuelMiner, used which may contain error for similar s ounding words even after review. Personal communication requested for any clarification. JAMAR MONTOYA MD 02/02/2019 12:47 PM onversion Transactio n, Provider Unknown - 02/02/2019 7:38 AM PDT Nurse Progress Note by Adonis Bonner RN at 02/02/19737 Author: Adonis Bonner RN Service: Nephrology Author Type: Registered Nurse Filed: 02/02/19738 Date of Service: 02/02/19737 Status: Signed Wool Batting Worker: Adonis Bonner RN (Registered Nurse) UF 929 ml with peritoneal dialysis over night. onver patric Transaction, Provider Unknown - 02/02/2019 6:07 AM PDT Nurse Progress Note by Samira García RN at 02/02/19606 Author: Samira García RN Service: (none) Author Type: Registered Nurse Filed: 02/02/19606 Date of Service: 02/02/19606 Status: Signed Wool Batting Worker: Samira García RN (Registered Nurse) Phenergan given x1. Lowest SBP 94. End of shift audit complete. onver patric Transaction, Provider Unknown - 02/01/2019 6:02 PM PDT Nurse Progress Note by Marixa Juarez RN at 02/01/191801 Author: Marixa Juarez RN Service: (none) Author Type: Registered Nurse Filed: 02/01/191803 Date of Service: 02/01/191801 Status: Signed Wool Batting Worker: Marixa Juarez RN (Registered Nurse) VS stable throughout shift. Pt medicated for abdominal pain x1 and nausea x1. QTC 571, zo shaheen orders were discontinued. No other acute changes from previous assessment. End of shift review complete. Marixa craig RN onver patric Transaction, Provider Unknown - 02/01/2019 3:54 PM PDT Pharmacy Note by Torrie Whelan RPH at 02/01/191553 Author: Torrie Whelan RPH Service: Pharmacy Author Type: Pharmacist Filed: 02/01/191553 Date of Service: 02/01/191553 Status: Signed Wool Batting Worker: Torrie Whelan RPH (Pharmacist) Intraperitoneal Dialysis-Ceftazidime Peritoneal [...] be giv en by intraperitoneal route Torrie Figueroa onver patric Transaction, Provider Unknown - 02/01/2019 3:28 PM PDT Case Management by Lilo Iqbal RN at 02/01/19 1528 Author: Lilo Iqbal RN Service: (none) Author Type: Registered Nurse Filed: 02/01/19 1538 Date of Service: 02/01/191527 Status: Signed Wool Batting Worker: Lilo Iqbal RN (Registered Nurse) 02/01/19 1500 [...] Yes Name of Pharmacy [facility] or [facility] Previous home health equipment No Anticipated Disposition Facility Type Home Met with pt and discussed discharge planning, Pt is a 38 y.o., female who lives with her sp emmanuel Woodall #[phone] and her sister Lydia Palm #[phone] in a 2 [address] with [address] ep to enter. Pt was last discharged from [facility] on 01/09. Pt's spouse assists pt with ADL's. Pt is independent with mobility and uses no DME's, oxygen, or anticoagulation. Pt receives beba toneal dialysis through [facility]. Pt is a member of the [facility] [place] and her contact there is [facility] #[phone]. Pt's CM through [employer] is [facility] #[phone]. Patient's PCP is: JUAN F SAMPSON Patient's [...] Pharmacy Note by Torrie Whelan RPH at 02/01/191431 Author: Torrie Whelan RPH Service: Pharmacy Author Type: Pharmacist Filed: 02/01/191433 Date of Service: 02/01/191431 Status: Signed Wool Batting Worker: Torrie Whelan RPH (Pharmacist) Antimicrobial Stewardship Team Note De-Escalation Recommendation Patient: Ramona Oconnor Attending: Vinh Harper MD Admission Date: [id number] [...] due to lack of BM. Submitted by: Torrie Whelan PharmD ( ) Disclaimer: The recommendations from the Antibiotic Stewardship Program are derived from a review of the medical records and not a history and/or physical. The recommendations are n ot a substitute for either clinical judgement or an infectious disease consultation and are not binding. onver patric Armando, Provider Unknown - 02/01/2019 12:04 PM PDT Pharmacy Note by Felicitas Bender RPH at 02/01/191203 Author: Felicitas Bender RPH Service: Pharmacy Author Type: Pharmacist Filed: 02/01/191203 Date of Service: 02/01/191203 Status: Signed Wool Batting Worker: Felicitas Bender RPH (Pharmacist) Clinical Pharmacy Note: [...] not fit our SHAWN protocol. Per the [facility] PD dosing recommmendations, it is recommended that [...] 02/01/1937 Date of Service: 02/01/19733 Status: Signed Wool Batting Worker: April Madsen RN (Registered Nurse) ordered for culture, cell count and gram stain of PD fluid. This roll threader operator able to draw 35ml of peritoneal fluid from pt's PD cath. Sent to lab. onver patric Transaction, Provider Unknown - 02/01/2019 6:26 AM PDT Pharmacy Note by Tisha Vanegas RPH at 02/01/19625 Author: Tisha Vanegas RPH Service: Pharmacy Author Type: Pharmacist Filed: 02/01/19625 Date of Service: 02/01/19625 Status: Signed Wool Batting Worker: Tisha Vanegas RPH (Pharmacist) Initiation of Vancomycin Pharmacy Dosing Ramona Oconnor 38 y.o. female 1.575 m (5' 2") 81.3 kg (179 lb 3.2 oz) Body mass index is 32.78 kg/m. [place] body weight: 50.1 kg (110 lb 7.2 [...] Pharmacy Note by Tisha Vanegas RPH at 02/01/19404 Author: Tisha Vanegas RPH Service: Pharmacy Author Type: Pharmacist Filed: 02/01/19404 Date of Service: 02/01/19404 Status: Signed Wool Batting Worker: Tisha Vanegas RPH (Pharmacist) Zosyn Extended Infusion [...] Pharmacy Note by Tisha Vanegas RPH at 02/01/19308 Author: Tisha Vanegas RPH Service: Pharmacy Author Type: Pharmacist Filed: 02/01/19308 Date of Service: 02/01/19308 Status: Signed Wool Batting Worker: Tisha Vanegas RPH (Pharmacist) Clinical Pharmacy Note: [...] 3:07 AM docume nted in this encounter H&P Notes Karen Roque DO - 02/01/2019 2:36 AM PDTFormatting of this note might be different from t brant original. H&P by Karen Roque DO at 02/01/19235 Author: Karen Roque DO Service: Hospitalist Author Type: Physician Filed: 02/01/19 0414 Date of Service: 02/01/19235 Status: Signed Wool Batting Worker: Karen Roque DO (Physician) [facility] Service: Hospitalist Admission History & Physical Date of Admission: 02/01/2019 Primary Care Physician: JUAN F SAMPSON Reason for Admission: SIRS, Gastroenteritis, prolong QT interval, end stage renal disease and right ovarian cyst History Obtained From: patient, chart review CHIEF COMPLAINT: Abdominal pain, leukocytosis and HISTORY OF PRESENT ILLNESS The patient is a 38 y.o. female with significant past medical history of recurrent periton itis associated with peritoneal dialysis (fluid cultures negative), metabolic acidosis, hypo kalemia, hypocalcemia, gastroesophageal reflux disease, diverticulosis without diverticuliti s who presents as a transfer from [facility] for abdominal pain, leukocytosis an d ESRD, patient in need of higher level of care. Main complaint at the outside facility was abdominal pain which has resolved, nausea, vomiting and diarrhea. She reports nonbilious vom iting 7 times and diarrhea 3 times since her symptoms began 1 day ago. Patient has no oral i ntake for a day due to the vomiting. Patient is anuric. No other contacts with similar sym ptoms. Patient does not recent travel history. Patient denies recent ingestion of possible contaminated food, toxic plants, inappropriate medications/poisons. Recent past history: Admitted from January 05 through January 09. Principal discharge diagnos is for diverticulitis, gastroesophageal reflux disease with esophagitis, end stage renal dis ease, right ovarian cyst, abnormal EKG, elevated troponin among other discharge diagnoses. A t first, patient was thought to have peritoneal dialysis catheter associated peritonitis but cultures were negative. She was discharge home on Cipro and Flagyl. Active comorbid conditions include: - renal disease, CKD (ESRD) - obesity due to excess calories - anemia Patient is negative for: murmur, friction rub, GERD, seizures Review of Systems Constitutional: Positive for fatigue. Negative for appetite change, chills, diaphoresis and fever. HENT: Negative for congestion, ear pain, sore throat and trouble swallowing. Eyes: Negative for discharge, redness and visual disturbance. Respiratory: Negative for cough, chest tightness, shortness of breath and wheezing. Cardiovascular: Negative for chest pain, palpitations and leg swelling. Gastrointestinal: Positive for abdominal pain (described as burning sensation), diarrhea an d vomiting. Negative for constipation. Endocrine: Negative for cold intolerance, heat intolerance, polydipsia and polyuria. Genitourinary: Negative for decreased urine volume, dysuria, flank pain, hematuria and urge ncy. Anuric Musculoskeletal: Negative for arthralgias, gait problem, joint swelling and myalgias. Skin: Negative for pallor, rash and wound. Allergic/Immunologic: Negative for food allergies and immunocompromised state. Neurological: Positive for light-headedness. Negative for tremors, seizures, syncope, speec h difficulty and headaches. Hematological: Does not bruise/bleed easily. Psychiatric/Behavioral: Negative for behavioral problems, confusion, dysphoric mood and loan cidal ideas. Past Medical History Diagnosis Date Diverticulitis 01/05/2019 [...] 10/25/15 showed normal sized kidneys. 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 GERD (gastroesophageal reflux disease) Hypercalcemia 09/07/2017 Hyperphosphatemia 10/28/2015 Hypocalcemia 10/28/2015 Hypokalemia 06/04/2017 Itching 10/28/2015 Metabolic acidosis 10/28/2015 Obesity Peritonitis associated with peritoneal dialysis (HCC) 01/24/2017 Peritonitis due to infected peritoneal dialysis catheter (HCC) 12/08/2018 Secondary hyperparathyroidism (HCC) Uremia 10/28/2015 Past Surgical History Procedure Laterality Date ESOPHAGOGASTRODUODENOSCOPY N/A 09/10/2017 Procedure: ESOPHAGOGASTRODUODENOSCOPY; Surgeon: Beena Peters MD; Location: [facility]; Service: Gastroenterology; Laterality: N/A; PERITONEAL CATHETER INSERTION N/A 10/28/2015 Procedure: LAPAROSCOPIC - PERITONEAL DIALYSIS CATH INSERTION; Surgeon: Mundo Ramos MD; Lo cation: [facility]; Service: Vascular; Laterality: N/A; No Known Allergies Prior to Admission medications Medication Sig Start Date End Date Taking? Authorizing Provider HYDROcodone-acetaminophen (NORCO) 5-325 MG per tablet Take 1 tablet by mouth every 4 (four) hours as needed. 03/19/18 Yes Arias Singh MD omeprazole (PRILOSEC) 20 MG capsule Take 20 mg by mouth every morning before breakfast. Y es Historical Provider ondansetron (ZOFRAN) 8 MG tablet Take 1 tablet by mouth every 8 (eight) hours as needed for Nausea. 01/25/17 Yes Shad Ba MD promethazine (PHENERGAN) 25 MG tablet Take 25 mg by mouth every 6 (six) hours as needed for Nausea. Yes Historical Provider sevelamer (RENVELA) 800 MG tablet Take 800 mg by mouth 3 (three) times daily with meals. Yes Historical Provider traZODone (DESYREL) 100 MG tablet Take 100 mg by mouth nightly. Yes Historical Provider ALPRAZolam (XANAX) 0.5 MG tablet Take 0.5 mg by mouth nightly as needed for Sleep. Histo rical Provider amLODIPine (NORVASC) 2.5 MG tablet Take 2.5 mg by mouth daily. Historical Provider ergocalciferol (DRISDOL) 21542 UNITS capsule Take 50,000 Units by mouth once a week. His torical Provider gentamicin (GARAMYCIN) 0.1 % ointment Apply topically 3 (three) times daily. Patient not taking: Reported on 02/01/2019 01/25/17 Shad Ba MD LORazepam (ATIVAN) 1 MG tablet Take 1 mg by mouth every 8 (eight) hours as needed for Anxie ty. Historical Provider potassium chloride SA (K-DUR,KLOR-CON) 20 MEQ tablet Take 1 tablet by mouth daily. Patient not taking: Reported on 02/01/2019 03/09/18 03/09/19 Lukas Lynn MD-R3 zolpidem (AMBIEN) 5 MG tablet Take 1 tablet by mouth nightly as needed for Sleep (may repea t once in 1 hr if initial dose not effective). Patient not taking: Reported on 02/01/2019 03/09/18 Lukas Lynn MD-R3 Social History Social History Marital status: Spouse name: N/A Number of children: 0 Years of education: N/A Social History Main Topics Smoking status: Former [...] healthy Diabetes Father Breast cancer Maternal Grandmother PHYSICAL EXAM BP 102/52 (BP Location: Right upper arm) | Pulse 60 | Temp 98.3 F (36.8 C) (Oral) | Ht 1.575 m (5' 2") | Wt 81.3 kg (179 lb 3.2 oz) | SpO2 100% | ? No | BMI 32 .78 kg/m Physical Exam Constitutional: She is oriented to person, place, and time. She appears well-developed and well-nourished. No distress. Non toxic appearing HENT: Head: Normocephalic and atraumatic. Right Ear: External ear normal. Left Ear: External ear normal. Nose: Nose normal. Mouth/Throat: Oropharynx is clear and moist. Eyes: Pupils are equal, round, and reactive to light. Conjunctivae and EOM are normal. Neck: Normal range of motion. Neck supple. Cardiovascular: Normal rate, regular rhythm and normal heart sounds. Exam reveals no altamirano p and no friction rub. No murmur heard. Pulmonary/Chest: Effort normal and breath sounds normal. No respiratory distress. She has n o wheezes. She has no rales. Abdomina/Gl: Soft. Bowel sounds are normal. She exhibits no distension. There is no tendern ess. PD cath in place Musculoskeletal: She exhibits no edema, tenderness or deformity. Neurological: She is alert and oriented to person, place, and time. No cranial nerve defici t or sensory deficit. Coordination normal. Skin: Skin is warm and dry. No rash noted. She is not diaphoretic. Psychiatric: She has a normal mood and affect. Her behavior is normal. Judgment and thought content normal. DATA Results Procedure Component Value Units Date/Time MRSA by PCR [[id number]] Collected: 02/01/19327 Specimen: Nasopharyngeal from Nares(Nose) Updated: 02/01/19 0334 POCT glucose [[id number]] Collected: 02/01/19312 Updated: 02/01/19 032 GLUCOSE,POC SCREEN 97 mg/dL Phosphorus [[id number]] Collected: 02/01/19317 Updated: 02/01/19 032 Magnesium [[id number]] Collected: 02/01/19317 Updated: 02/01/19 032 Procalcitonin [[id number]] Collected: 02/01/19317 Updated: 02/01/19323 CBC W/Auto Diff (Reflex to Manual) [[id number]] Collected: 02/01/19317 Specimen: Blood Updated: 02/01/19323 Comprehensive Metabolic Panel [[id number]] Collected: 02/01/19317 Specimen: Blood Updated: 02/01/19323 Blood Culture Set 2 [[id number]] Collected: 02/01/19316 Specimen: Blood from Blood Updated: 02/01/19322 Blood Culture Set 1 [[id number]] Collected: 02/01/19316 Specimen: Blood from Blood Updated: 02/01/19322 Results Procedure Component Value Units Date/Time MRSA by PCR [[id number]] Collected: 02/01/19327 Specimen: Nasopharyngeal from Nares(Nose) Updated: 02/01/19333 Blood Culture Set 2 [[id number]] Collected: 02/01/19316 Specimen: Blood from Blood Updated: 02/01/19322 Blood Culture Set 1 [[id number]] Collected: 02/01/19316 Specimen: Blood from Blood Updated: 02/01/19322 IMAGING No results found. Data from [facility] CT scan of the abdomen revealed no acute abnormality. There is a small volume free fluid in the pelvis with a peritoneal dialysis catheter in the left lower quadrant without definite organized peritoneal fluid collection. Enlarged heterogeneous right ovary similar to previou s exam, ultrasound recommended to confirm stability versus involution. Colon diverticulosis without diverticulitis and a stable left adrenal gland nodule indeterminate. Please refers t o paper report for complete details EKG at 2346: Normal sinus rhythm, low-voltage QRS, nonspecific T-wave abnormalities. QTC 56 6 ventricular rate 73 CBC 19.1, hemoglobin 10.4, hematocrit 31.7, platelets 292, sodium 137, potassium 3.6, CO2 2 20, chloride 97, creatinine 11.92, BUN 25, bands 12 ASSESSMENT & PLAN Principal Problem: SIRS (HCC): -Records reviewed multiple admissions for sepsis with negative the blood and fluid cultures -At the outside facility, patient had hypotension, leukocytosis, bandemia, normal lactic ac id and no fever -Differential diagnoses include hematological / solid tumor malignancy, sepsis, C. difficil e or inflammatory response -Due to comorbid conditions will treat with broad spectrum antibiotics vancomycin, zosyn an d oral vancomycin to cover for C. difficile. Please be escalate when appropriate -Recommend consultation with ID to follow closely -Keep MAPgreater than 65. -Check lactic acid and procalcitonin -Oxygen supplementation as needed. -Blood cultures x 2, peritoneal fluid gram stain / culture, C. difficile, stool cultures cu ltures Active Problems: Gastroenteritis: -Chronic nausea, however, now having vomiting and diarrhea -Differential diagnoses include C. difficile as patient was taking antibiotics, gastropares is, food poisoning -Supportive care -A stool culture and C. difficile as above -May benefit from a gastric emptying study to r/o gastroparesis once stable -Serial troponin to rule out out NM with atypical symptoms Prolonged Q-T interval on ECG: -QTC 566 -Repeat EKG, please follow up -Avoid medication which may prolong QT intervals such as Zofran, macrolides, fluoroquinolon es -Telemetry End-stage renal disease (HCC): -Consult security rep in the AM re: PD Cyst of right ovary: -Right ovarian cyst per previous ultrasound secondary to underlying hemorrhagic cyst versus endometriomas, will repeat ultrasound to confirm stability versus involution -THERAPEUTIC DIETITIAN consultation in the hospital or as outpatient, to follow closely for malignancy GI and DVT prophylaxis KAREN ROQUE DO 02/01/2019 3:35 AM documented in this enco unter Procedure Notes Qasim Pederson MD - 2019 2:22 PM PDTFormatting of this note might be different from t he original. Procedures by Qasim Pederson MD at 02/05/191421 Author: Qasim Pederson MD Service: Vascular Surgery Author Type: Physician Filed: 02/05/19 1427 Date of Service: 02/05/191421 Status: Signed Wool Batting Worker: Qasim Pederson MD (Physician) [facility] Service: Vascular Surgery Procedure Note NAME: Ramona Oconnor BILLING #: [id number] MR #: [id number] : 1980 DATE OF PROCEDURE: 2019 SURGEON: Qasim Pederson MD PREOPERATIVE DIAGNOSIS: 1. End stage renal disease requiring hemodialysis POSTOPERATIVE DIAGNOSIS: Same PROCEDURES: 1.Percutaneous access of right internal jugular vein under ultrasound guidance and placemen t of tunneled hemodialysis catheter SEDATION:Moderate conscious sedation was administered during the procedure by the physici an and nursing staff with continuous hemodynamic monitoring throughout the procedure.Total Sedation: Versed: 2mg; Fentanyl: 100mcg; Total Sedation Time: 22minutes ANTIBIOTIC PROPHYLAXIS: none FLUOROSCOPY TIME: 0.1min, Dose 1mGy EBL: Minimal COMPLICATIONS: None INDICATIONS: This is a 39 y.o. female patient with end stage renal disease requiring hemod ialysis.The patient has been evaluated by his security rep who determined that he is a suita ble candidate to undergo hemodialysis. The patient has received appropriate training regardi ng hemodialysis. The patient understands the benefit and purpose of the planned procedure of tunneled hemodialysis catheter insertion is to allow the patient to receive hemodialysis wh ile waiting for a snf hemodialysis access such as arteriovenous venous fistula or carito t to be created. The patient also understands the risks and complications of this procedure which include bleeding, vessel perforation, vessel dissection, nerve and arterial injury, an d pneumothorax. The patient has accepted these benefits and risks and agreed to undergo the planned procedure. PROCEDURE IN DETAIL: The patient was taken to the operating room and placed on the table in the supine position. The patient's right neck and chest region was prepped sterilely and th en draped in a standard fashion. The patient was given local and conscious sedation anesthes ia. Appropriate time out was performed whereby the patient and site of surgery were identifi ed. Percutaneous access of the right internal jugular vein was obtained under ultrasound jaycee dance. A 0.035' guidewire was placed in the right internal jugular vein and confirmed under fluoroscopy guidance. The skin tract was dilated with serial dilators. A peel away sheath wa s inserted over the guidewire. A hemodialysis catheter was tunneled under the skin from the chest to the neck. Next the guidewire and inner dilator of the peel away sheath was removed. The tunneled hemodialysis catheter was placed into the internal jugular vein over a peel aw ay sheath. The catheter tip was positioned in the atrio caval junctionand the position was c onfirmed with fluoroscopy. Heparinized saline solution was injected in the double lumen tunn eled hemodialysis catheter and the catheter was securely anchored to the skin using 3-0 nylo n sutures. Standard dressing was applied over the tunneled hemodialysis catheter in the usua l fashion. Hemostasis was achieved without complications. The patient tolerated the procedur e well and suffered no complications. I was present throughout the entire procedure. Qasim Pederson MD koum, Chago Beck MD - 1:59 PM PDT Procedures by Chago Chi MD at 02/04/19 5999 Author: Chago Chi MD Service: Nephrology Author Type: Physician Filed: 02/04/19 9623 Date of Service: 02/04/19 4376 Status: Addendum Wool Batting Worker: Chago Chi MD (Physician) Related Notes: Original Note by BALJIT Guerrier (Nurse Practitioner) filed at 01/09 06/28 8268 Hospital Problem List: Principal Problem: SIRS (systemic inflammatory response syndrome) (HCC) Active Problems: Gastroenteritis End-stage renal disease (HCC) Prolonged Q-T interval on ECG Cyst of right ovary The patient was seen earlier in AM on PD. She says that she feels 'ok' today. she denies any chest pain, dyspnea. her urine output i s noted. She was admitted with "SIRS, Gastroenteritis, prolong QT interval, end stage renal disease and right ovarian cyst". She presented with nausea and vomiting that started on Friday & Friday, emesis 6-8 x on Friday. Reports watery diarrhea x 2 on Friday. PD solution has been clear. Reports no issu es with PD. No leg swelling, no PD cath site issues. UF last night was appx 800mL The following portions of the patient's history were reviewed and updated as appropriate: l aboratory data, radiologic studies, allergies, current medications, and problem list. Scheduled Meds: ceftAZIDime (FORTAZ) inj syringe (peritoneal dialysis) 2,000 mg Intraperitoneal QPM famotidine 20 mg Oral Daily Or famotidine 20 mg Intravenous Daily heparin (porcine) 5000 unit/0.5mL 5,000 Units Subcutaneous 2 times per day ondansetron 4 mg Oral Once pantoprazole 40 mg Oral QAM AC sevelamer 800 mg Oral TID WC sodium chloride (PF) 10 mL Intravenous Q8H traZODone 100 mg Oral Nightly Continuous Infusions: dextrose PRN Meds:.acetaminophen OR acetaminophen, dextrose, dextrose, dextrose, glucagon, gluca erica, HYDROcodone-acetaminophen OR HYDROcodone-acetaminophen, polyethylene glycol, promet hazine BP 111/69 (BP Location: Right upper arm) | Pulse 66 | Temp 98.2 F (36.8 C) (Oral) | Resp 18 | Ht 1.575 m (5' 2") | Wt 84.4 kg (186 lb) | SpO2 100% | ? No | BM I 34.02 kg/m General appearance: Pleasant, not in acute distress. Laying in bed. Lungs: Clear to auscultation. There are no wheezes. Heart: Regular rate and rhythm without any rub, gallop. No murmur. Abdominal exam: Soft and non-tender. Extremities: Warm to touch with no leg edema. There is no cyanosis or clubbing. Neurological: Awake, alert, and oriented to time, place, and person. Normal gross motor po wer. There is no asterixis. Access : PD cath in place, site is benign Lab Results Component Value Date BUN 29 (H) 02/04/2019 CREATININE 12.15 (H) 02/04/2019 EGFR 3 (L) 02/04/2019 NA 142 02/04/2019 K 2.9 (L) 02/04/2019 CL 102 02/04/2019 CO2 26 02/04/2019 CA 7.4 (L) 02/04/2019 PHOS 6.0 (H) 02/04/2019 MG 3.2 (H) 02/03/2019 ALB 2.9 (L) 02/04/2019 HGB 9.8 (L) 02/04/2019 I/O last 3 completed shifts: In: 12443.5 [P.O.:1055; I.V.:184.5; Other:9961] Out: 77366 [Other:35708] Assessment: Ms. Oconnor is a 38 y.o. female patient with ESRD, PD. Recurrent PD-associated peritonitis despite repeated education & re-education on adequate sterile technique. I highly believe sh e's been adequately compliant with that, and that we may be dealing with a non-healing focus /nidus/small abscess that we have been unable to see with imaging, that is causing this many peritonitis episodes. She understands she needs to come off PD & switch to HD. Presented with: N/V, abd pain Admitted with: "SIRS, Gastroenteritis, prolong QT interval, end stage renal disease and rig ht ovarian cyst" High risk for electrolyte imbalance Hypoalb Anemia of ESRD hyperphos hypoK ANGELA 10k units sq x 1 dose 02/01 Recommendations: Plan for PD cath removal today and HD CVC placement. UF as tolerated No acute need for ANGELA Protein supplements stressed Strict I/O and Daily [...] and the changes with the author on 02/04. Chago Chi MD koum, Chago Beck MD - 12:03 PM PDT Procedures by Chago Chi MD at 02/03/19 1203 Author: Chago Chi MD Service: Nephrology Author Type: Physician Filed: 02/03/19 1601 Date of Service: 02/03/19 1203 Status: Addendum Wool Batting Worker: Chago Chi MD (Physician) Related Notes: Original Note by BALJIT Guerrier (Nurse Practitioner) filed at 01/09 05/28 1517 Procedure Orders: 1. Peritoneal Dialysis ([facility]) [[id number]] ordered by Chago Chi MD at 02/02/19 1521 Hospital Problem List: Principal Problem: SIRS (systemic inflammatory response syndrome) (HCC) Active Problems: Gastroenteritis End-stage renal disease (HCC) Prolonged Q-T interval on ECG Cyst of right ovary The patient says that she feels 'ok' today. she denies any chest pain, dyspnea. her urine output is noted. She was admitted with "SIRS, Gastroenteritis, prolong QT interval, end stage renal disease and right ovarian cyst". She presented with nausea and vomiting that started on Friday & Friday, emesis 6-8 x on Friday. Reports watery diarrhea x 2 on Friday. PD solution has been clear. Reports no issu es with PD. No leg swelling, no PD cath site issues. The following portions of the patient's history were reviewed and updated as appropriate: l aboratory data, radiologic studies, allergies, current medications, and problem list. Scheduled Meds: ceftAZIDime (FORTAZ) inj syringe (peritoneal dialysis) 2,000 mg Intraperitoneal QPM famotidine 20 mg Oral Daily Or famotidine 20 mg Intravenous Daily heparin (porcine) 5000 unit/0.5mL 5,000 Units Subcutaneous 2 times per day ondansetron 4 mg Oral Once pantoprazole 40 mg Oral QAM AC sevelamer 800 mg Oral TID WC sodium chloride (PF) 10 mL Intravenous Q8H traZODone 100 mg Oral Nightly Continuous Infusions: dextrose PRN Meds:.acetaminophen OR acetaminophen, dextrose, dextrose, dextrose, glucagon, gluca erica, HYDROcodone-acetaminophen OR HYDROcodone-acetaminophen, polyethylene glycol, promet hazine BP 104/62 (BP Location: Right upper arm) | Pulse 67 | Temp 98.5 F (36.9 C) (Oral) | Resp 16 | Ht 1.575 m (5' 2") | Wt 82.7 kg (182 lb 6.4 oz) | SpO2 100% | ? N o | BMI 33.36 kg/m General appearance: Pleasant, not in acute distress. Laying in bed. Lungs: Clear to auscultation. There are no wheezes. Heart: Regular rate and rhythm without any rub, gallop. No murmur. Abdominal exam: Soft and non-tender. Extremities: Warm to touch with no leg edema. There is no cyanosis or clubbing. Neurological: Awake, alert, and oriented to time, place, and person. Normal gross motor po wer. There is no asterixis. Access : PD cath in place, site is benign Lab Results Component Value Date BUN 30 (H) 02/03/2019 CREATININE 12.8 (H) 02/03/2019 EGFR 3 (L) 02/03/2019 NA 139 02/03/2019 K 3.0 (L) 02/03/2019 CL 98 (L) 02/03/2019 CO2 27 02/03/2019 CA 7.5 (L) 02/03/2019 PHOS 5.6 (H) 02/03/2019 MG 3.2 (H) 02/03/2019 ALB 1.8 (L) 02/03/2019 HGB 9.6 (L) 02/03/2019 I/O last 3 completed shifts: In: 22654 [P.O.:1115; Other:91283] Out: 17428 [Other:05834] Assessment: Ms. Oconnor is a 38 y.o. female patient with ESRD, PD. Recurrent PD-associated peritonitis despite repeated education & re-education on adequate sterile technique. I highly believe sh e's been adequately compliant with that, and that we may be dealing with a non-healing focus /nidus/small abscess that we have been unable to see with imaging, that is causing this many peritonitis episodes. She understands she needs to come off PD & switch to HD. Presented with: N/V, abd pain Admitted with: "SIRS, Gastroenteritis, prolong QT interval, end stage renal disease and rig ht ovarian cyst" High risk for electrolyte imbalance Hypoalb Anemia of ESRD hyperphos hypoK ANGELA 10k units sq x 1 dose 02/01 Recommendations: Plan for PD cath removal today Plan for HD CVC placement today UF as tolerated No acute need for ANGELA Protein supplements stressed Strict I/O and Daily [...] and the changes with the author on 02/03. Add: Unable to get the PD cath out today. Plan that for Friday. + will need a tunneled CVC then. Dicussed with Dr Ramos. Chago Chi MD koum, Chago Beck MD - 10:46 AM PDT Procedures by Chago Chi MD at 02/02/19 1046 Author: Chago Chi MD Service: Nephrology Author Type: Physician Filed: 02/03/19 1602 Date of Service: 02/02/19 104 Status: Addendum Wool Batting Worker: Chago Chi MD (Physician) Related Notes: Original Note by BALJIT Guerrier (Nurse Practitioner) filed at 01/09 04/28 1046 Hospital Problem List: Principal Problem: SIRS (systemic inflammatory response syndrome) (HCC) Active Problems: Gastroenteritis End-stage renal disease (HCC) Prolonged Q-T interval on ECG Cyst of right ovary The patient says that she feels 'ok' today. she denies any chest pain, dyspnea. her urine output is noted. She was admitted with "SIRS, Gastroenteritis, prolong QT interval, end stage renal disease and right ovarian cyst". She presented with nausea and vomiting that started on Friday & Friday, emesis 6-8 x on Friday. Reports watery diarrhea x 2 on Friday. PD solution has been clear. Reports no issu es with PD. No leg swelling, no PD cath site issues. UF over night: 929mL The following portions of the patient's history were reviewed and updated as appropriate: l aboratory data, radiologic studies, allergies, current medications, and problem list. Scheduled Meds: ceftAZIDime (FORTAZ) inj syringe (peritoneal dialysis) 2,000 mg Intraperitoneal QPM famotidine 20 mg Oral Daily Or famotidine 20 mg Intravenous Daily heparin (porcine) 5000 unit/0.5mL 5,000 Units Subcutaneous 2 times per day ondansetron 4 mg Oral Once pantoprazole 40 mg Oral QAM AC sevelamer 800 mg Oral TID WC sodium chloride (PF) 10 mL Intravenous Q8H traZODone 100 mg Oral Nightly Continuous Infusions: dextrose PRN Meds:.acetaminophen OR acetaminophen, dextrose, dextrose, dextrose, glucagon, gluca erica, HYDROcodone-acetaminophen OR HYDROcodone-acetaminophen, polyethylene glycol, promet hazine BP 102/60 (BP Location: Right upper arm) | Pulse 69 | Temp 98.9 F (37.2 C) (Oral) | Resp 16 | Ht 1.575 m (5' 2") | Wt 81.3 kg (179 lb 3.2 oz) | SpO2 100% | ? N o | BMI 32.78 kg/m General appearance: Pleasant, not in acute distress. Lungs: Clear to auscultation. There are no wheezes. Heart: Regular rate and rhythm without any rub, gallop. No murmur. Abdominal exam: Soft and non-tender. Extremities: Warm to touch with no leg edema. There is no cyanosis or clubbing. Neurological: Awake, alert, and oriented to time, place, and person. Normal gross motor po wer. There is no asterixis. Access : PD cath in place, site is benign Lab Results Component Value Date BUN 29 (H) 02/02/2019 CREATININE 12.6 (H) 02/02/2019 EGFR 3 (L) 02/02/2019 NA 140 02/02/2019 K 3.4 (L) 02/02/2019 CL 101 02/02/2019 CO2 25 02/02/2019 CA 8.0 (L) 02/02/2019 PHOS 5.4 (H) 02/01/2019 MG 3.0 (H) 02/01/2019 ALB 2.0 (L) 02/02/2019 HGB 10.2 (L) 02/02/2019 I/O last 3 completed shifts: In: 20229 [P.O.:560; Other:39641] Out: 54204 [Other:89339] Assessment: Ms. Oconnor is a 38 y.o. female patient with ESRD, PD. Recurrent PD-associated peritonitis despite repeated education & re-education on adequate sterile technique. I highly believe sh e's been adequately compliant with that, and that we may be dealing with a non-healing focus /nidus/small abscess that we have been unable to see with imaging, that is causing this many peritonitis episodes. She understands she needs to come off PD & switch to HD, but she does not want to do that at this time. We will address this again with her tomorrow.* Presented with: N/V, abd pain Admitted with: "SIRS, Gastroenteritis, prolong QT interval, end stage renal disease and rig ht ovarian cyst" High risk for electrolyte imbalance Hypoalb Anemia of ESRD hyperphos hypoK ANGELA 10k units sq x 1 dose 02/01 Recommendations: Daily PD UF as tolerated No acute need for ANGELA Protein supplements stressed Strict I/O and Daily [...] and the changes with the author on 02/02. Chago Chi MD documented in this enc ounter Consult Notes Qasim Pederson MD - 02/04/2019 7:52 AM PDTFormatting of this note might be different from t he original. Consult* by Qasim Pederson MD at 02/04/19 075 Author: Qasim Pederson MD Service: Vascular Surgery Author Type: Physician Filed: 02/04/19 1521 Date of Service: 02/04/19 075 Status: Addendum Wool Batting Worker: Qasim Pederson MD (Physician) Related Notes: Original Note by Man Jeronimo PA-C (Physician Assembly Machine Tool Setter - Certified) fi led at 02/04/19 0817 [facility] Service: Vascular Surgery Initial Consult Note Date of Admission: 02/01/2019 Date of consultation: 02/04/2019 Reason for Consultation: Peritoneal dialysis catheter infection Primary Care Physician: JUAN F SAMPSON History Obtained From: patient, chart review Code Status: Full Code CHIEF COMPLAINT: Nausea and abdominal pain HISTORY OF PRESENT ILLNESS The patient is a 38 y.o. female with significant past medical history of hypertension, dive rticulitis, and end stage renal disease on peritoneal dialysis who presented to [facility] Emergen cy Department with complaints for worsening abdominal pain and nausea. The patient was admit [place] to [facility] about one month ago (01/05/19 - 01/09/19) after developing abdominal pain and leuko cytosis. She was diagnosed with bacterial peritonitis secondary to diverticulitis. She was t reated with intravenous and intraperitoneal antibiotics. She was discharged on 01/09/2019 from [facility]. She did well for a few weeks but developed severe nausea and abdominal pain and prese nted to [facility] [facility] ED. She was eventually transferred to [facility] for further evaluation and treatment. She was diagnosed with peritonitis and a peritoneal fluid cell count was consiste nt with infection. Nephrology was consulted and has requested removal of her peritoneal dial ysis catheter. Vascular Surgery has been consulted for evaluation and treatment of her infec medina peritoneal dialysis catheter. REVIEW OF SYSTEMS General: negative for - night sweats, weight [...] of hallucinations. Positive for history of depression. Past Medical History Diagnosis Date Diverticulitis 01/05/2019 [...] 10/25/15 showed normal sized kidneys. 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 GERD (gastroesophageal reflux disease) Hypercalcemia 09/07/2017 Hyperphosphatemia 10/28/2015 Hypocalcemia 10/28/2015 Hypokalemia 06/04/2017 Itching 10/28/2015 Metabolic acidosis 10/28/2015 Obesity Peritonitis associated with peritoneal dialysis (HCC) 01/24/2017 Peritonitis due to infected peritoneal dialysis catheter (HCC) 12/08/2018 Secondary hyperparathyroidism (HCC) Uremia 10/28/2015 Past Surgical History Procedure Laterality Date ESOPHAGOGASTRODUODENOSCOPY N/A 09/10/2017 Procedure: ESOPHAGOGASTRODUODENOSCOPY; Surgeon: Beena Peters MD; Location: [facility] ENDOSCOP Y; Service: Gastroenterology; Laterality: N/A; PERITONEAL CATHETER INSERTION N/A 10/28/2015 Procedure: LAPAROSCOPIC - PERITONEAL DIALYSIS CATH INSERTION; Surgeon: Mundo Ramos MD; Lo cation: [facility] MAIN OR; Service: Vascular; Laterality: N/A; No Known Allergies Medication Sig gentamicin (GARAMYCIN) 0.1 % ointment Apply topically 3 (three) times daily. LORazepam (ATIVAN) 1 MG tablet Take 1 mg by mouth every 8 (eight) hours as needed for A nxiety. omeprazole (PRILOSEC) 20 MG capsule Take 20 mg by mouth every morning before breakfast. ondansetron (ZOFRAN) 8 MG tablet Take 1 tablet by mouth every 8 (eight) hours as needed for Nausea. promethazine (PHENERGAN) 25 MG tablet Take 25 mg by mouth every 6 (six) hours as needed for Nausea. sevelamer (RENVELA) 800 MG tablet Take 800 mg by mouth 3 (three) times daily with meals . traZODone (DESYREL) 100 MG tablet Take 100 mg by mouth nightly. amLODIPine (NORVASC) 2.5 MG tablet Take 2.5 mg by mouth daily. Scheduled Medications ceftAZIDime (FORTAZ) inj syringe (peritoneal [...] HYDRO codone-acetaminophen OR HYDROcodone-acetaminophen, polyethylene glycol, promethazine Family History Problem Relation Age of Onset Other (see comments) Mother healthy Diabetes Father Breast cancer Maternal Grandmother Social History Marital status: Number of children: 0 Social History Main Topics Smoking status: Former Smoker Packs/day: 0.25 Quit date: 10/10/2015 Smokeless tobacco: Never Used Alcohol use No Comment: occ Drug use: Yes Types: Marijuana Comment: oil Sexual activity: Yes Partners: Male control/ protection: None Comment: Social History Narrative She lives at home and is a former smoker. PHYSICAL EXAM Vital Signs: BP 111/69 (BP Location: Right upper arm) | Pulse 66 | Temp 98.2 F (36.8 C) (Oral) | Resp 18 | Ht 1.575 m (5' 2") | Wt 84.4 kg (186 lb) | SpO2 100% | ? No | BM I 34.02 kg/m Constitutional: Well nourished, no signs of distress HENT: Non icteric sclerae, oropharynx clear. Normocephalic and atraumatic. Lymphadenopathy: She has no cervical or supraclavicular adenopathy Cardiovascular: Normal rate, regular rhythm Pulmonary/Chest: No respiratory distress. Abdominal: Soft. No abdominal distension. She has mild tenderness with palpation of lower a bdomen. No masses palpated and no hepatomegaly. No organomegaly. No abdominal pulsatile mass noted. PD catheter in place with no drainage or purulence noted. Musculoskeletal: Normal range of motion. No evidence [...] PROBLEM LIST End stage renal disease Peritonitis Infected peritoneal dialysis catheter ASSESSMENT & PLAN End stage renal disease / Peritonitis / Infected peritoneal dialysis catheter - The patien t has evidence of peritonitis based on cell count of peritoneal fluid. She will need to have her peritoneal dialysis catheter removed and plan a temporary transition to hemodialysis. Patricia ny discussed removal of her peritoneal dialysis catheter and she would like to proceed. Risks of surgery include bleeding, infection, injury to nerve, injury to organ, retain catheter i n abdomen, heart attack, stroke, pneumonia, cardiopulmonary failure and . She understan ds these risks and benefits of the procedure and wishes to proceed. She has been NPO since m idnight. Signed consent obtained. We will proceed with peritoneal dialysis catheter removal today at [facility] Operating Room. We will plan to place a tunneled hemodialysis catheter in the cath lab radiological technologist tomorrow, on 02/06/20 19 and will obtain vein mapping for future AVF creation. ARLYN Brock MD Vascular Surgery Alonzo Cool MD - 02/01/2019 2:52 PM PDTFormatting of this note might be different from the origi nal. Consults by Alonzo Correa MD at 02/01/191451 Author: Alonzo Correa MD Service: Infectious Disease Author Type: Physic uma Filed: 02/01/19 1549 Date of Service: 02/01/191451 Status: Signed Wool Batting Worker: Alonzo Correa MD (Physician) Consult Orders: 1. Inpatient consult to Infectious Diseases [[id number]] ordered by Vinh Harper MD at 1447 [facility] Service: Infectious Diseases Initial Consult Note Date of Admission: 02/01/2019 Requesting Physician: Vinh Harper MD, General Medicine Reason for Consult Peritonitis CHIEF COMPLAINT Abdominal pain HISTORY OF PRESENT ILLNESS The patient is a 38 y.o.-year-old female with significant PMH of ESRD on PD for the last 3 years approximately. Pt is seen in consultation for PD associated peritonitis. Pt has a history of multiple episode of PD associated peritonitis dating back to 2017. She has had numerous hospital admissions for peritonitis in the past and sometimes has large patricia lularity which makes diagnosis simple, other times she has had low cellularity but compatibl e clinical history. Pt states she has never had her peritoneal dialysis catheter replaced. This year alone, she has had 3 admissions for peritonitis. She has been seen in consultatio n with ID service numerous times in the past as well. Now she presented to her local hospital [facility] with abdominal pain and was found to have leukocytosis. Associated symptoms included nausea and vomiting as well as some diarrhea . 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 Patient has no oral intake for a day due to the vomiting. Patient is anuric. No oth er contacts with similar symptoms. Patient denied recent travel history. Patient denied rece nt ingestion of possible contaminated food, toxic plants, inappropriate medications. The patient was found to have leukocytosis of 19k, prolonged QT, CT abdomen and pelvis with out acute abnormality, known right benign ovarian mass, creatinine of 11.9. Pt was therefore transferred to [facility]. She did receive antibiotics including vancomycin, zos yn and also oral vancomycin and today nephrology evaluated the patient and peritoneal fluid was sent for analysis revealing WBC of 622, 48% neutrophils. Culture is pending. Infectious Disease (ID) consult requested for further evaluation and management. PAST MEDICAL HISTORY Past Medical History Diagnosis Date Diverticulitis 01/05/2019 [...] 10/25/15 showed normal sized kidneys. 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 GERD (gastroesophageal reflux disease) Hypercalcemia 09/07/2017 Hyperphosphatemia 10/28/2015 Hypocalcemia 10/28/2015 Hypokalemia 06/04/2017 Itching 10/28/2015 Metabolic acidosis 10/28/2015 Obesity Peritonitis associated with peritoneal dialysis (HCC) 01/24/2017 Peritonitis due to infected peritoneal dialysis catheter (HCC) 12/08/2018 Secondary hyperparathyroidism (HCC) Uremia 10/28/2015 Past Surgical History Procedure Laterality Date ESOPHAGOGASTRODUODENOSCOPY N/A 09/10/2017 Procedure: ESOPHAGOGASTRODUODENOSCOPY; Surgeon: Beena Peters MD; Location: [facility] ENDOSCOP [facility]; Service: Gastroenterology; Laterality: N/A; PERITONEAL CATHETER INSERTION N/A 10/28/2015 Procedure: LAPAROSCOPIC - PERITONEAL DIALYSIS CATH INSERTION; Surgeon: Mundo Ramos MD; Lo cation: [facility] MAIN OR; Service: Vascular; Laterality: N/A; [...] at home and is a former smoker. IMMUNIZATIONS: stated as current, but no records available Family History Problem Relation Age of Onset Other (see comments) Mother healthy Diabetes Father Breast cancer Maternal Grandmother Current Facility-Administered Medications Medication Dose Route Frequency Provider Last Rate Last Dose acetaminophen (TYLENOL) tablet 650 mg 650 mg Oral Q6H PRN Karen Hercl, DO Or acetaminophen (TYLENOL) suppository 650 mg 650 mg Rectal Q6H PRN Karen Hercl, DO dextrose 10 % infusion Intravenous Continuous PRN Karen Hercl, DO dextrose 50 % solution 12 mL 12 mL Intravenous PRN Karen Hercl, DO dextrose 50 % solution 25 mL 25 mL Intravenous PRN Karen Hercl, DO famotidine (PEPCID) tablet 20 mg 20 mg Oral Daily Tisha Vanegas, RPH 20 mg at 9 0754 Or famotidine (PEPCID) injection 20 mg 20 mg Intravenous Daily Tisha Vanegas, THOMAS glucagon (GLUCAGEN) injection 0.5 mg 0.5 mg Intramuscular PRN Karen Hercl, DO glucagon (GLUCAGEN) injection 1 mg 1 mg Intramuscular PRN Karen Hercl, DO heparin (porcine) 5000 unit/0.5mL injection 5,000 Units 5,000 Units Subcutaneous 2 rl es per day Karen Hercl, DO 5,000 Units at 02/01/19 0754 HYDROcodone-acetaminophen (NORCO) 5-325 MG per tablet 1 tablet 1 tablet Oral Q4H PRN G race Hercl, DO Or HYDROcodone-acetaminophen (NORCO) 10-325 MG per tablet 1 tablet 1 tablet Oral Q4H PRN Karen Hercl, DO 1 tablet at 02/01/19 1443 ondansetron (ZOFRAN-ODT) disintegrating tablet 4 mg 4 mg Oral Once Chago H MD Alon pantoprazole (PROTONIX) EC tablet 40 mg 40 mg Oral QAM AC Karen Hercl, DO 40 mg at 0 02/01/19 0528 polyethylene glycol (GLYCOLAX) packet 17 g 17 g Oral Daily PRN Karen Hercl, DO promethazine (PHENERGAN) IVPB 6.25 mg 6.25 mg Intravenous Q6H PRN Karen Hercl, DO 6. 25 mg at 02/01/19 1420 sevelamer (RENVELA) tablet 800 mg 800 mg Oral TID WC Karen Hercl, DO Stopped at 01/09 03/28 0747 sodium chloride (PF) 0.9 % flush 10 mL 10 mL Intravenous Q8H Karen Hercl, DO 10 mL a t 02/01/19 1158 traZODone (DESYREL) tablet 100 mg 100 mg Oral Nightly Karen Hercl, DO 100 mg at 01/09 03/28 0328 ALLERGIES No Known Allergies REVIEW OF SYSTEMS A comprehensive review of systems was negative except for those in the HPI. PHYSICAL EXAM Vital Signs: BP 115/72 (BP Location: Right upper arm) | Pulse 58 | Temp 98.2 F (36.8 C) (Oral) | Resp 16 | Ht 1.575 m (5' 2") | Wt 81.3 kg (179 lb 3.2 oz) | SpO2 99% | ? No | BMI 32.78 kg/m Temp (24hrs), Av.3 F (36.8 C), Min:97.8 F (36.6 C), Max:98.7 F (37.1 C) General Appearance: Alert, cooperative, [...] Venous access: none No signs of infection. REVIEW OF LABS: All labs reviewed. CBC: Lab Results Component Value Date WBC 21.67 (H) 02/01/2019 RBC 3.22 (L) 02/01/2019 HGB 9.8 (L) 02/01/2019 HCT 29.9 (L) 02/01/2019 MCV 92.8 02/01/2019 MCH 30.5 02/01/2019 MCHC 32.9 02/01/2019 RDW 48.6 02/01/2019 PLT 355 02/01/2019 MPV 8.2 02/01/2019 DIFFTYPE MANUAL 02/01/2019 CMP: Lab Results Component Value Date NA 141 02/01/2019 K 3.6 02/01/2019 CL 103 02/01/2019 CO2 27 02/01/2019 ANIONGAP 15 02/01/2019 GLUF 94 02/01/2019 BUN 25 02/01/2019 CREATININE 11.53 (H) 02/01/2019 BCR 2 02/01/2019 CA 7.5 (L) 02/01/2019 CA 9.0 09/07/2017 PROT 5.7 (L) 02/01/2019 ALB 3.4 (L) 02/01/2019 GLOB 2.3 02/01/2019 BILITOT <0.2 02/01/2019 ALP 81 02/01/2019 AST 11 02/01/2019 ALT <7 (L) 02/01/2019 EGFR 4 (L) 02/01/2019 MICROBIOLOGY Results Procedure Component Value Units Date/Time Fluid culture w/gram stain [[id number]] Collected: 02/01/19 0751 Specimen: Body Fluid from Peritoneal Fluid Updated: 02/01/19 1121 Body fluid cell count [[id number]] Collected: 02/01/19 0753 Specimen: Other from Peritoneal Fluid Updated: 02/01/19 0907 FLUID TYPE PERITONEAL FLUID COLOR YELLOW APPEARANCE HAZY RBC'S <10,000 /mm3 TOTAL NUCLEATED CELLS 622 /mm3 NEUTROPHILS 48 % LYMPHOCYTES 5 % MONOCYTES/MACROPHAGES 46 % Mesothelial Cells 1 % CELLS COUNTED 100 Blood Culture Set 1 [[id number]] Collected: 02/01/19 0317 Specimen: Blood from Blood Updated: 02/01/19 0856 Blood Culture Set 2 [[id number]] Collected: 02/01/19316 Specimen: Blood from Blood Updated: 02/01/1956 MRSA by PCR [[id number]] Collected: 02/01/19 0328 Specimen: Nasopharyngeal from Nares(Nose) Updated: 02/01/19 0824 SOURCE NARES(NOSE) MRSA PCR NEGATIVE IMAGING Images not available for review. PROBLEM LIST Principal Problem: SIRS (systemic inflammatory response syndrome) (HCC) Active Problems: Gastroenteritis End-stage renal disease (HCC) Prolonged Q-T interval on ECG Cyst of right ovary ASSESSMENT AND RECOMMENDATIONS The patient is a 38 y.o.-year-old female with the following problems: 1. Recurrent peritoneal dialysis - associated peritonitis 2. Leukocytosis sec to #1 3. ESRD 4. Mild elevation of procalcitonin Patient has had numerous episodes of peritonitis associated with her PD catheter. Just in t he last 3 months alone, she has been hospitalized monthly for this. Today, I recommended intraperitoneal antibiotic therapy. She already received a loading dose of vancomycin iv which will stick around for a while. Stp Zosyn, stop oral vancomycin. Start ceftazidime intraperitoneally at night, dwell time minimum 6 hours. Await culture results. With her history of recurrent infections, I discussed with the patient regarding her techni que at home for her PD but she states she and her follow standard of care and were t rained for home PD. I recommended potentially remove her PD catheter due to frequent infecti ons and she refuses to have it removed. She refused vehemently to transition to hemodialysis as well. I will let her discuss with her security rep Dr. Chi in the morning. Recommend 2 weeks of therapy for her peritonitis. Outpatient IP antibiotics are preferred. Discussed with Dr. Harper and Dr. Chi. Thank you for this consultation. Will follow along. Alonzo Up MD, MPH Infectious Diseases 02/01/2019 koum, Chago Beck MD - 02/01/2019 9:43 AM PDTFormatting of this note might be different from the orig inal. Consults by Chago Chi MD at 02/01/19942 Author: Chago Chi MD Service: Nephrology Author Type: Physician Filed: 02/01/191917 Date of Service: 02/01/19942 Status: Signed Wool Batting Worker: Chago Chi MD (Physician) Consult Orders: 1. Inpatient consult to Nephrology [[id number]] ordered by Karen Roque DO at 02/01/19 0622 Hospital Problem List: Principal Problem: SIRS (systemic inflammatory response syndrome) (HCC) Active Problems: Gastroenteritis End-stage renal disease (HCC) Prolonged Q-T interval on ECG Cyst of right ovary I was asked by the admitting team to see Ms. Oconnor in consult today. As the admitting/jerel ricks team is familiar with her case, I will not state her past history in detail. Briefly , she is a 38 y.o. female patient with history as delineated in the Past Medical & Surgical History sections. She was admitted with "SIRS, Gastroenteritis, prolong QT interval, end stage renal disease and right ovarian cyst". I was called in to evaluate her for opinion on urgent dialysis need. She presented with nausea and vomiting that started on Friday & Friday, emesis 6-8 x on Friday. Reports watery diarrhea x 2 on Friday. PD solution has been clear. Reports no issu es with PD. No leg swelling, no PD cath site issues. History & ROS obtained from : patient, primary team, chart review. The patient has history of ESRD. She says that she feels 'poor' today. No history of blurred vision tinnitus, heada riri, fever, chills, or cough. No diarrhea, melena, or hematochezia. No chest pain, palpita tion, dizziness, loss of consciousness, orthopnea, paroxysmal nocturnal dyspnea, or leg yesica a. No u/o. The following portions of the patient's history [...] systems were reviewed and were otherwise negative. famotidine 20 mg Oral Daily Or famotidine 20 mg Intravenous Daily heparin (porcine) 5000 unit/0.5mL 5,000 Units Subcutaneous 2 times per day pantoprazole 40 mg Oral QAM AC piperacillin-tazobactam 2.25 g Intravenous Q12H sevelamer 800 mg Oral TID WC sodium chloride (PF) 10 mL Intravenous Q8H traZODone 100 mg Oral Nightly vancomycin 125 mg Oral 4 times per day vancomycin 500 mg Intravenous See Admin Instructions vancomycin 750 mg Intravenous See Admin Instructions dextrose No intake/output data recorded. No intake/output data recorded. P.E. BP 122/60 (BP Location: Right upper arm) | Pulse 58 | Temp 97.8 F (36.6 C) (Oral) | Resp 18 | Ht 1.575 m (5' 2") | Wt 81.3 kg (179 lb 3.2 oz) | SpO2 100% | ? N o | BMI 32.78 kg/m General appearance: Pleasant, [...] asterixis. Psychiatric: The patient s behavior is sleepy. Judgment and thought content are normal. Access: PD cath site is benign. Lab Results Component Value Date BUN 25 02/01/2019 CREATININE 11.53 (H) 02/01/2019 EGFR 4 (L) 02/01/2019 NA 141 02/01/2019 K 3.6 02/01/2019 CL 103 02/01/2019 CO2 27 02/01/2019 CA 7.5 (L) 02/01/2019 PHOS 5.4 (H) 02/01/2019 MG 3.0 (H) 02/01/2019 ALB 3.4 (L) 02/01/2019 HGB 9.8 (L) 02/01/2019 Assessment/Recommendations: Ms. Oconnor is a 38 y.o. female patient with ESRD, PD. Recurrent PD-associated peritonitis despite repeated education & re-education on adequate sterile technique. I highly believe sh e's been adequately compliant with that, and that we may be dealing with a non-healing focus /nidus/small abscess that we have been unable to see with imaging, that is causing this many peritonitis episodes. She understands she needs to come off PD & switch to HD, but she does not want to do that at this time. We will address this again with her tomorrow.* Presented with: N/V, abd pain Admitted with: "SIRS, Gastroenteritis, prolong QT interval, end stage renal disease and rig ht ovarian cyst" VOLUME: EABV is ok No IVF need No diuresis as ineffective Advise fluid restriction of 1.5 L per 24 hrs There is no acute UF indication Given her tendency for anasarca: Encourage adequate intake & close dietitian F/U. Encourage ambulation safely. Encourage the adequate use of an incentive spirometer. RENAL FUNCTION: no RKF There is no acute SERVICE CONTROL OPERATOR indication, plan for PD later today No IVF need Strict I/O & daily weights. Dose all of her meds to her current daily PD. Continue to avoid all kinds of nephrotoxins. Target euvolumia with a MAP>75 mmHg as possible. BLOOD PRESSURE: controlled No vasoactive meds needed now Monitor BP closely & frequently ELECTROLYTES: abnormal. No immediate/acute SERVICE CONTROL OPERATOR indication; but plan it for later today Sodium: ok Potassium: ok Calcium: mildly low Magnesium: mildly up Phosphorus: mildly up Acid/Base: ok Reinforce lytes protocol ALBUMIN: hypoalbuminemia Prot suppl stressed ANEMIA: mild Associated with ESRD At this time, no need to send Ferritin, iron panel ANGELA 10k units sq x 1 dose today OTHER: F/U: Also seen and examined during dialysis. Tolerating it well. Access: no issues. UF: as tolerated. Next dialysis: daily PD. Will give Ceftazidime with PD tonight as ordered by the ID team I discussed today with Ms. Oconnor the meaning of her presenting sxs and the interaction of that with her hemodynamics. I discussed with the primary team the case before the time of this encounter. I spent 70 total minutes today in interviewing & examining the patient, reviewing & updatin g the patient's chart, formulating a plan, in addition to patient education and discussions with the primary/consulting team. Thank you Dr Roque for the opportunity to see this patient in consult today. Please do not hesitate to call me at any time with questions or concerns. CHAGO CHI MD documented in this enc ounter Miscellaneous Notes Plan of Care - Conversion Transaction, Provider Unknown - 02/15/2019 11:12 AM PDT Plan of Care by Yaneth Tran RN at 02/15/191111 Author: Yaneth Tran RN Service: (none) Author Type: Registered Nurse Filed: 02/15/191111 Date of Service: 02/15/191111 Status: Signed Wool Batting Worker: Yaneth Tran RN (Registered Nurse) Problem: Safety Goal: Patient [...] non-skid footwear provided. Outcome: Progressing Patient remains injury free. Bed in lowest locked position with alarm set and call light w ithin reach. Visualized hourly. lan o f Care - Conversion Transaction, Provider Unknown - 02/15/2019 4:57 AM PDTFormatting of thi s note might be different from the original. Plan of Care by Fred Prater RN at 02/15/19456 Author: Fred Prater RN Service: (none) Author Type: Registered Nurse Filed: 02/15/19456 Date of Service: 02/15/19456 Status: Signed Wool Batting Worker: Fred Prater RN (Registered Nurse) Problem: Pain Goal: Patient's pain/discomfort is manageable Assess and monitor patient's pain using appropriate pain scale. Collaborate with interdisci plinary team and initiate plan and interventions as ordered. Re-assess patient's pain level approximately 1-2 hours after pain management intervention. Premedicate as needed. Outcome: Progressing Pt has c/o abd pain x1 7/10 this am and has been medicated with PO NORCO. Will continue to monitor. Fred Prater RN. lan o f Care - Conversion Transaction, Provider Unknown - 02/14/2019 8:55 AM PDTFormatting of thi s note might be different from the original. Plan of Care by Jalil More RN at 02/14/19854 Author: Jalil More RN Service: (none) Author Type: Registered Nurse Filed: 02/14/19854 Date of Service: 02/14/19854 Status: Signed Wool Batting Worker: Jalil More RN (Registered Nurse) Problem: Pain Goal: Patient's pain/discomfort is manageable Assess and monitor patient's pain using appropriate pain scale. Collaborate with interdisci plinary team and initiate plan and interventions as ordered. Re-assess patient's pain level approximately 1-2 hours after pain management intervention. Premedicate as needed. Outcome: Progressing Patient monitoring own pain using the 1-10 pain scale Patient medicated for pain per physician orders lan o f Care - Conversion Transaction, Provider Unknown - 02/14/2019 12:28 AM PDTFormatting of thi s note might be different from the original. Plan of Care by Shelli Mukherjee RN at 02/14/1927 Author: Shelli Mukherjee RN Service: (none) Author Type: Registered Nurse Filed: 02/14/1927 Date of Service: 02/14/1927 Status: Signed Wool Batting Worker: Shelli Mukherjee RN (Registered Nurse) Problem: Pain Goal: Patient's pain/discomfort is manageable Assess and monitor patient's pain using appropriate pain scale. Collaborate with interdisci plinary team and initiate plan and interventions as ordered. Re-assess patient's pain level approximately 1-2 hours after pain management intervention. Premedicate as needed. Outcome: Progressing No c/o pain. Pt reports she wakes with nausea every morning. Problem: Daily Care Goal: Daily care needs are met Assess and monitor ability to perform self care and identify potential discharge needs. Outcome: Progressing Pt states daily care needs are being met. lan o f Care - Conversion Transaction, Provider Unknown - 02/13/2019 3:40 PM PDTFormatting of thi s note might be different from the original. Plan of Care by Jalil More RN at 02/13/191539 Author: Jalil More RN Service: (none) Author Type: Registered Nurse Filed: 02/13/191539 Date of Service: 02/13/191539 Status: Signed Wool Batting Worker: Jalil More RN (Registered Nurse) Problem: Pain Goal: Patient's pain/discomfort is manageable Assess and monitor patient's pain using appropriate pain scale. Collaborate with interdisci plinary team and initiate plan and interventions as ordered. Re-assess patient's pain level approximately 1-2 hours after pain management intervention. Premedicate as needed. Outcome: Progressing Patient monitoring own pain using the 1-10 pain scale Patient medicated for pain per physician orders lan o f Care - Conversion Transaction, Provider Unknown - 02/13/2019 12:55 AM PDTFormatting of teresa s note might be different from the original. Plan of Care by Shelli Mukherjee RN at 02/13/1954 Author: Shelli Mukherjee RN Service: (none) Author Type: Registered Nurse Filed: 02/13/1954 Date of Service: 02/13/1954 Status: Signed Wool Batting Worker: Shelli Mukherjee RN (Registered Nurse) Problem: Pain Goal: Patient's pain/discomfort is manageable Assess and monitor patient's pain using appropriate pain scale. Collaborate with interdisci plinary team and initiate plan and interventions as ordered. Re-assess patient's pain level approximately 1-2 hours after pain management intervention. Premedicate as needed. Outcome: Progressing Pt c/o pain, relieved with medication. Problem: Safety Goal: Patient will be injury [...] policy, and non-skid footwear provided. Outcome: Progressing Pt calls appropriately for assistance. lan o f Care - Conversion Transaction, Provider Unknown - 02/12/2019 10:44 AM PDTFormatting of thi s note might be different from the original. Plan of Care by Jalil More RN at 02/12/191043 Author: Jalil More RN Service: (none) Author Type: Registered Nurse Filed: 02/12/191043 Date of Service: 02/12/191043 Status: Signed Wool Batting Worker: Jalil More RN (Registered Nurse) Problem: Risk for Falls Goal: No falls during hospitalization Patient will not fall during hospitalization. Outcome: Progressing Patient risk for falls assessed every shift Patient up with assist at all times lan o f Care - Conversion Transaction, Provider Unknown - 02/12/2019 12:39 AM PDTFormatting of teresa s note might be different from the original. Plan of Care by Shelli Mukherjee RN at 02/12/1938 Author: Shelli Mukherjee RN Service: (none) Author Type: Registered Nurse Filed: 02/12/1938 Date of Service: 02/12/1938 Status: Signed Wool Batting Worker: Shelli Mukherjee RN (Registered Nurse) Problem: Pain Goal: Patient's pain/discomfort is manageable Assess and monitor patient's pain using appropriate pain scale. Collaborate with interdisci plinary team and initiate plan and interventions as ordered. Re-assess patient's pain level approximately 1-2 hours after pain management intervention. Premedicate as needed. Outcome: Progressing No c/o pain. Problem: Safety Goal: Patient will be injury [...] policy, and non-skid footwear provided. Outcome: Progressing Pt calls appropriately for assistance. Pt needs minimal assistance with care. Problem: Daily Care Goal: Daily care needs are met Assess and monitor ability to perform self care and identify potential discharge needs. Outcome: Progressing Pt sates all daily care needs are met. lan o f Care - Conversion Transaction, Provider Unknown - 02/10/2019 10:13 PM PDTFormatting of thi s note might be different from the original. Plan of Care by Frances Tineo RN at 02/10/192212 Author: Frances Tineo RN Service: (none) Author Type: Registered Nurse Filed: 02/10/192212 Date of Service: 02/10/192212 Status: Signed Wool Batting Worker: Frances Tineo RN (Registered Nurse) Problem: Safety Goal: Patient [...] non-skid footwear provided. Outcome: Progressing Bed in low locked position, call light within reach, hourly rounding for pt needs. lan o f Care - Conversion Transaction, Provider Unknown - 02/10/2019 6:55 PM PDTFormatting of thi s note might be different from the original. Plan of Care by Katya Umana RN at 02/10/191854 Author: Katya Umana RN Service: (none) Author Type: Registered Nurse Filed: 02/10/191854 Date of Service: 02/10/191854 Status: Signed Wool Batting Worker: Katya Umana RN (Registered Nurse) Problem: Safety Goal: Patient [...] and non-skid footwear provided. Outcome: Progressing Bed alarm on and call light within reach. Pt received HD this shift with 1.8L off. End of s hift review complete. Katya Umana RN lan o f Care - Conversion Transaction, Provider Unknown - 02/09/2019 9:08 PM PDTFormatting of thi s note might be different from the original. Plan of Care by Frances Tineo RN at 02/09/192107 Author: Frances Tineo RN Service: (none) Author Type: Registered Nurse Filed: 02/09/192107 Date of Service: 02/09/192107 Status: Signed Wool Batting Worker: Frances Tineo RN (Registered Nurse) Problem: Safety Goal: Patient [...] non-skid footwear provided. Outcome: Progressing Bed in low locked position, call light within reach, hourly rounding for pt needs. lan o f Care - Conversion Transaction, Provider Unknown - 02/09/2019 10:56 AM PDTFormatting of thi s note might be different from the original. Plan of Care by Misty Camacho RN at 02/09/191055 Author: Misty Camacho RN Service: (none) Author Type: Registered Nurse Filed: 02/09/191055 Date of Service: 02/09/191055 Status: Signed Wool Batting Worker: Misty Camacho RN (Registered Nurse) Problem: Safety Goal: Patient [...] non-skid footwear provided. Outcome: Progressing Call light within reach, nonskid socks in place, bed in low locked position. Bed alarm in p lace. Will continue purposeful hourly rounding. Problem: Daily Care Goal: Daily care needs are met Assess and monitor ability to perform self care and identify potential discharge needs. Outcome: Progressing Assess orientation, monitor VS. Pt A&Ox4, VSS at this time. Assist with ADLs as needed. Con tinue HD as scheduled, pain and nausea management. Encourage PO as tolerated. Replace potass ium as needed. All questions and concerns addressed, pt verbalized understanding. Will andrade nue to monitor. lan o f Care - Conversion Transaction, Provider Unknown - 02/09/2019 6:26 AM PDTFormatting of thi s note might be different from the original. Plan of Care by Katya Umana RN at 02/09/19625 Author: Katya Umana RN Service: (none) Author Type: Registered Nurse Filed: 02/09/19625 Date of Service: 02/09/19625 Status: Signed Wool Batting Worker: Katya Umana RN (Registered Nurse) Problem: Pain Goal: Patient's pain/discomfort is manageable Assess and monitor patient's pain using appropriate pain scale. Collaborate with interdisci plinary team and initiate plan and interventions as ordered. Re-assess patient's pain level approximately 1-2 hours after pain management intervention. Premedicate as needed. Outcome: Progressing Pt given pain medication x2 this shift. No complaints of nausea. Pt BP soft during shift, u jessica recheck increased into 90's systolic. BP cuff cycling Q30 min and BP increasing. End of shift review complete. Katya Umana RN lan o f Care - Conversion Transaction, Provider Unknown - 02/08/2019 12:54 PM PDTFormatting of thi s note might be different from the original. Plan of Care by Misty Camacho RN at 02/08/191253 Author: Misty Camacho RN Service: (none) Author Type: Registered Nurse Filed: 02/08/191253 Date of Service: 02/08/191253 Status: Signed Wool Batting Worker: Misty Camacho RN (Registered Nurse) Problem: Safety Goal: Patient [...] non-skid footwear provided. Outcome: Progressing Call light within reach, nonskid socks in place, bed in low locked position. Will continue purposeful hourly rounding. Problem: Daily Care Goal: Daily care needs are met Assess and monitor ability to perform self care and identify potential discharge needs. Outcome: Progressing Assess orientation, monitor VS. Pt A&Ox4, VSS at this time. Assist with ADLs as needed. Con tinue pain and nausea management. HD as scheduled. All questions and concerns addressed, pt verbalized understanding. Will continue to monitor. lan o f Care - Conversion Transaction, Provider Unknown - 02/07/2019 11:49 PM PDTFormatting of thi s note might be different from the original. Plan of Care by Lizz Gill RN at 02/07/192348 Author: Lizz Gill RN Service: (none) Author Type: Registered Nurse Filed: 02/07/192348 Date of Service: 02/07/192348 Status: Signed Wool Batting Worker: Lizz Gill RN (Registered Nurse) Problem: Risk for Falls Goal: No falls during hospitalization Patient will not fall during hospitalization. Outcome: Progressing Bed in lowest position, bed alarm has been on. Pt aware of fall risk. Q1h rounding. Non-ski d socks. lan o f Care - Conversion Transaction, Provider Unknown - 02/07/2019 1:35 PM PDTFormatting of thi s note might be different from the original. Plan of Care by Katya Umana RN at 02/07/19 1852 Author: Katya Umana RN Service: (none) Author Type: Registered Nurse Filed: 02/07/190 Date of Service: 02/07/191334 Status: Signed Wool Batting Worker: Katya Umana RN (Registered Nurse) Problem: Pain Goal: Patient's pain/discomfort is manageable Assess and monitor patient's pain using appropriate pain scale. Collaborate with interdisci plinary team and initiate plan and interventions as ordered. Re-assess patient's pain level approximately 1-2 hours after pain management intervention. Premedicate as needed. Outcome: Progressing Pt complaining of pain throughout shift. Medicated for pain, with moderate relief. End of s hift review complete. Katya Umana RN Electronically signed by [facility], Provider at 06/20/2019 10:55 AM PDTPlan o f Care - Conversion Transaction, Provider Unknown - 02/06/2019 10:13 PM PDTFormatting of thi s note might be different from the original. Plan of Care by Marixa Terrazas RN at 02/06/192212 Author: Marixa Terrazas RN Service: (none) Author Type: Registered Nurse Filed: 02/06/192212 Date of Service: 02/06/192212 Status: Signed Wool Batting Worker: Marixa Terrazas RN (Registered Nurse) Problem: Daily Care Goal: Daily care needs are met Assess and monitor ability to perform self care and identify potential discharge needs. Outcome: Progressing Daily care needs are met and assistance is provided as needed. Pt assessed for potential d ischarge needs. Pt encouraged to be as independent as possible and partakes in decision conor ing. Electronically signed by Conversion [facility], Provider at 06/20/2019 10:56 AM PDTPlan o f Care - Conversion Transaction, Provider Unknown - 02/06/2019 6:26 PM PDTFormatting of thi s note might be different from the original. Plan of Care by Katya Umana RN at 02/06/191825 Author: Katya Umana RN Service: (none) Author Type: Registered Nurse Filed: 02/06/191825 Date of Service: 02/06/191825 Status: Signed Wool Batting Worker: Katya Umana RN (Registered Nurse) Problem: Safety Goal: Patient [...] and non-skid footwear provided. Outcome: Progressing Bed alarm on and call light within reach. End of shift review complete. Katya Umana RN lan o f Care - Conversion Transaction, Provider Unknown - 2019 11:17 PM PDTFormatting of thi s note might be different from the original. Plan of Care by Marixa Terrazas RN at 02/05/192316 Author: Marixa Terrazas RN Service: (none) Author Type: Registered Nurse Filed: 02/05/192316 Date of Service: 02/05/192316 Status: Signed Wool Batting Worker: Marixa Terrazas RN (Registered Nurse) Problem: Discharge Barriers Goal: Patient's discharge needs are met Collaborate with interdisciplinary team and initiate plans and interventions as needed. Outcome: Progressing Discharge needs are being met by care team. lan o f Care - Conversion Transaction, Provider Unknown - 2019 9:30 AM PDTFormatting of thi s note might be different from the original. Plan of Care by Zabrina Rubio RN at 02/05/19929 Author: Zabrina Rubio RN Service: (none) Author Type: Registered Nurse Filed: 02/05/19931 Date of Service: 02/05/19929 Status: Signed Wool Batting Worker: Zabrina Rubio, RN (Registered Nurse) Demonstrates ability to cope with hospitalization/illness Progressing Pt is still anxious about removal of peritoneal dialysis catheter and insertion of tunneled HD catheter. Pt concerned about the change from PD to HD. Pt counseled about pro's and con' s of the change. Pt encouraged to vocalize concerns. Family at bedside. VSS lan o f Care - Conversion Transaction, Provider Unknown - 02/04/2019 9:09 PM PDTFormatting of thi s note might be different from the original. Plan of Care by Marixa Terrazas RN at 02/04/192108 Author: Marixa Terrazas RN Service: (none) Author Type: Registered Nurse Filed: 02/04/192108 Date of Service: 02/04/192108 Status: Signed Wool Batting Worker: Marixa Terrazas RN (Registered Nurse) Problem: Safety Goal: Patient [...] policy, and non-skid footwear provided. Outcome: Progressing Appropriate arm bands on, non-skid socks on when out of bed, room uncluttered and well lit. Patient visualized hourly, bed in lowest position, call light within reach. p Not e - Porj, Qasim Porras MD - 02/04/2019 4:40 PM PDTFormatting of this note might be different fro m the original. Op Note by Qasim Pederson MD at 02/04/191639 Author: Qasim Pederson MD Service: Vascular Surgery Author Type: Physician Filed: 02/04/19 4261 Date of Service: 02/04/191639 Status: Signed Wool Batting Worker: Qasim Pederson MD (Physician) [facility] Service: Vascular Surgery Procedure Note NAME: Ramona Oconnor BILLING #: [id number] MR #: [id number] : 1980 DATE OF PROCEDURE: 02/04/2019 SURGEON: Qasim Pederson MD TEST DRIVER: Man Jeronimo PA-C (ARLYN was required to help with positioning, prepping and d raping and closure). PREOPERATIVE DIAGNOSIS: 1) End stage renal disease requiring dialysis 2) Peritoneal dialysis catheter infection POSTOPERATIVE DIAGNOSIS: Same PROCEDURES: 1) Infected peritoneal dialysis catheter removal ANESTHESIA:Moderate sedation and local anesthesia SPECIMEN:None ESTIMATED BLOOD LOSS:Less Than 10 ml (Minimal) BLOOD ADMINISTERED: 0 unit PRBC transfusion COMPLICATIONS:None CONDITION: Stable INDICATIONS: This is a 38 y.o. female patient who has been diagnosed with end stage renal d isease. She has been receiving peritoneal dialysis until recently she developed peritoneal d ialysis catheter infection. The patient will be transitioned to hemodialysis using a tunnel ed hemodialysis catheter. The patient understands the benefit and purpose of this procedure is to remove the infected peritoneal dialysis catheter and the source of sepsis. The patient also understands the risks and complications of this procedure which include bleeding, infe ction, intraabdominal organ injury and catheter retention. She agrees with the planned proce dure of peritoneal dialysis catheter removal. PROCEDURE IN DETAIL: The patient was brought to the operating room and placed on the operat ing table in the supine. Appropriate time out was performed in which all nursing and surgica l personnel concurred with the surgical plan. Moderate sedation anesthesia was given by the anesthesiologist and maintained throughout the entire procedure. The patient's abdomen was prepped and draped sterilely. Local anesthesia with 1% lidocaine was infiltrated around the tunneled peritoneal dialysis catheter insertion site. Using a hem ostat, the insertion site was dilated to remove the adhesion and to separate the catheter cu ff from the surrounding soft tissue. Using concepcion pressure, the catheter was pull in a stea dy fashion and the tunneled peritoneal catheter was removed without difficulty. The catheter tip was sent to microbiology for culture and sensitivity. An elliptical skin incision was m sameera around the catheter insertion site. The incision was carried down to the subcutaneous ti ssue and the elliptical skin incision with the subcutaneous tissue was resected. Hemostasis was achieved with electrocautery. The wound was irrigated with saline. The subcutaneous tiss ue was closed with 2-0 Vicryl suture in interrupted fashion. The skin incision was closed wi th 3-0 Nylon sutures in interrupted vertical mattress fashion. The patient tolerated the procedure well and remained hemodynamically stable throughout the entire operation. The patient suffered no complications, and the patient was taken to the r ecovery room in stable condition. I was present throughout the entire procedure. Qasim Pederson MD lan of Care - Conversi on Transaction, Provider Unknown - 02/04/2019 1:12 PM PDTFormatting of this note might be d ifferent from the original. Plan of Care by Zabrina Rubio RN at 02/04/191311 Author: Zabrina Rubio RN Service: (none) Author Type: Registered Nurse Filed: 02/04/191314 Date of Service: 02/04/191311 Status: Signed Wool Batting Worker: Zabrina Rubio RN (Registered Nurse) Patient's pain/discomfort is manageable Progressing Pt c/o pain and nausea. Pt has prolonged QT so scopolamine patch applied and promethazine a dministered. IV pain med administered as pt NPO for upcoming procedure. VSS. lan o f Care - Conversion Transaction, Provider Unknown - 02/03/2019 8:28 PM PDTFormatting of thi s note might be different from the original. Plan of Care by Marixa Terrazas RN at 02/03/192027 Author: Marixa Terrazas RN Service: (none) Author Type: Registered Nurse Filed: 02/03/192027 Date of Service: 02/03/192027 Status: Signed Wool Batting Worker: Marixa Terrazas RN (Registered Nurse) Problem: Safety Goal: Patient [...] policy, and non-skid footwear provided. Outcome: Progressing Appropriate arm bands on, non-skid socks on when out of bed, room uncluttered and well lit. Patient visualized hourly, bed in lowest position, call light within reach. lan o f Care - Conversion Transaction, Provider Unknown - 02/03/2019 7:34 PM PDTFormatting of thi s note might be different from the original. Plan of Care by Katya Umana RN at 02/03/191933 Author: Katya Umana RN Service: (none) Author Type: Registered Nurse Filed: 02/03/191933 Date of Service: 02/03/191933 Status: Signed Wool Batting Worker: Katya Umana RN (Registered Nurse) Problem: Pain Goal: Patient's pain/discomfort is manageable Assess and monitor patient's pain using appropriate pain scale. Collaborate with interdisci plinary team and initiate plan and interventions as ordered. Re-assess patient's pain level approximately 1-2 hours after pain management intervention. Premedicate as needed. Outcome: Progressing Pt complaining of pain and nausea throughout shift. Medicated for pain per JAN. End of t review complete. Katya Umana RN lan o f Care - Conversion Transaction, Provider Unknown - 02/02/2019 7:56 PM PDTFormatting of thi s note might be different from the original. Plan of Care by Samira García RN at 02/02/191955 Author: Samira García RN Service: (none) Author Type: Registered Nurse Filed: 02/02/191955 Date of Service: 02/02/191955 Status: Signed Wool Batting Worker: Samira García RN (Registered Nurse) Problem: Pain Goal: Patient's pain/discomfort is manageable Assess and monitor patient's pain using appropriate pain scale. Collaborate with interdisci plinary team and initiate plan and interventions as ordered. Re-assess patient's pain level approximately 1-2 hours after pain management intervention. Premedicate as needed. Outcome: Progressing Pt uses pain scale appropriately, and medicated per MAR. Pain reassessments done by RN. Problem: Safety Goal: Patient will be injury [...] policy, and non-skid footwear provided. Outcome: Progressing Arm band on, bed in low position with wheels locked, and call light and bedside table withi n reach. lan o f Care - Conversion Transaction, Provider Unknown - 02/02/2019 10:18 AM PDTFormatting of thi s note might be different from the original. Plan of Care by Marixa Juarez RN at 02/02/191017 Author: Marixa Juarez RN Service: (none) Author Type: Registered Nurse Filed: 02/02/191017 Date of Service: 02/02/191017 Status: Signed Wool Batting Worker: Marixa Juarez RN (Registered Nurse) Problem: Pain Goal: Patient's pain/discomfort is manageable Assess and monitor patient's pain using appropriate pain scale. Collaborate with interdisci plinary team and initiate plan and interventions as ordered. Re-assess patient's pain level approximately 1-2 hours after pain management intervention. Premedicate as needed. Outcome: Progressing Pt continues to c/o pain in upper epigastic region. PRN norco given as ordered with some r elief noted. lan o f Care - Conversion Transaction, Provider Unknown - 02/01/2019 8:46 PM PDTFormatting of thi s note might be different from the original. Plan of Care by Samira García RN at 02/01/192045 Author: Samira García RN Service: (none) Author Type: Registered Nurse Filed: 02/01/192045 Date of Service: 02/01/192045 Status: Signed Wool Batting Worker: Samira García RN (Registered Nurse) Problem: Safety Goal: Patient [...] policy, and non-skid footwear provided. Outcome: Progressing Arm band on, bed in low position with wheels locked, and call light and bedside table withi n reach. lan o f Care - Vinh Harper MD - 02/01/2019 6:34 PM PDTFormatting of this note might be diffe rent from the original. Plan of Care by Vinh Harper MD at 02/01/191833 Author: Vinh Harper MD Service: (none) Author Type: Physician Filed: 02/01/191834 Date of Service: 02/01/191833 Status: Signed Wool Batting Worker: Vinh Harper MD (Physician) Patient having abdominal pain. History of recurrent peritonitis. Nucleated cells in ascit es fluid more than 600. Most likely peritonitis. Will be started on Intraperitoneal Fortaz . Infectious disease consulted. Some nausea but no vomiting or diarrhea. Stool culture st udies and C. Difficile studies had been discontinued. IV vancomycin and Zosyn also disconti nued. Vitals have been stable otherwise. Nephrology, Dr. Chi has been on board. lan of Care - Conve rsion Transaction, Provider Unknown - 02/01/2019 4:46 PM PDTFormatting of this note might b e different from the original. Plan of Care by Marixa Juarez RN at 02/01/191645 Author: Marixa Juarez RN Service: (none) Author Type: Registered Nurse Filed: 02/01/191645 Date of Service: 02/01/191645 Status: Signed Wool Batting Worker: Marixa Juarez RN (Registered Nurse) Problem: Pain Goal: Patient's pain/discomfort is manageable Assess and monitor patient's pain using appropriate pain scale. Collaborate with interdisci plinary team and initiate plan and interventions as ordered. Re-assess patient's pain level approximately 1-2 hours after pain management intervention. Premedicate as needed. Outcome: Progressing PRN norco given for abdominal pain. Pt states relief. Problem: Infection Goal: Signs and symptoms of [...] plan and interventions as ordered. Outcome: Progressing VS remain stable throughout shift. Pt afebrile. lan o f Care - Conversion Transaction, Provider Unknown - 02/01/2019 6:45 AM PDTFormatting of thi s note might be different from the original. Plan of Care by Katya Umana RN at 02/01/19644 Author: Katya Umana RN Service: (none) Author Type: Registered Nurse Filed: 02/01/19644 Date of Service: 02/01/19644 Status: Signed Wool Batting Worker: Katya Umana RN (Registered Nurse) Problem: Pain Goal: Patient's pain/discomfort is manageable Assess and monitor patient's pain using appropriate pain scale. Collaborate with interdisci plinary team and initiate plan and interventions as ordered. Re-assess patient's pain level approximately 1-2 hours after pain management intervention. Premedicate as needed. Outcome: Progressing Pt complaining of pain x1 this shift. Medicated per mar with moderate relief. End of shift review complete. Katya Umana RN docume nted in this encounter Plan of Treatment Not on filedocumented as of this encounter Procedures + +--------+ + + + | Procedure Name | Priori | Date/Time | Associated Diagnosis | Comments | | | ty | | | | + +--------+ + + + | EXTERNAL LAB: BLAINE | Routin | 02/15/2019 | | Results [...] | EXTERNAL LAB: CBC | Routin | 02/13/2019 | | Results [...] | EXTERNAL LAB: BLAINE | Routin | 02/12/2019 | | Results [...] | EXTERNAL LAB: BLAINE | Routin | 02/09/2019 | | Results [...] | EXTERNAL LAB: CBC | Routin | 02/06/2019 | | Results [...] | EXTERNAL LAB: CBC | Routin | 02/04/2019 | | Results [...] | EXTERNAL LAB: CBC | Routin | 02/03/2019 | | Results [...] | | | Basophils | performed at [facility], [address] | [address] | LAB | | | | [address], | | | | | | [place] [id number] | | | | + + + [...] | | | | | performed at [facility], [address] | | | | | | [facility], | | | | | | [place] [address] | | | | + [...] | | | Basophils | performed at [facility], [address] | K/[address] | LAB | | | | [address], | | | | | | [place] [address] | | | | + + + [...] | | | | | performed at [facility], [address] | | | | | | [facility], | | | | | | [place] [address] | | | | + + + [...] | | | | TC, [address] [facility] | | | | | | [address], [place] | | | | | | [address] | | | | + + + [...] | | | | | performed at [facility], [address] | | | | | | [facility], | | | | | | [place] [address] | | | | + + + [...] | | | Basophils | performed at [facility], [address] | [address] | LAB | | | | [address], | | | | | | [place] [address] | | | | + + + [...] | | | | | performed at [facility], [address] | | | | | | [facility], | | | | | | [place] [address] | | | | + + + [...] | | | | | TCL, [address] | | | | | | [place] | | | | | | [address] | | | | + + + [...] | | | | | performed at [facility], [address] | | | | | | [facility], | | | | | | [place] [address] | | | | + + + [...] | | | | | performed at [facility] | | | | | | [facility];[place], [place] | | | | | | [address] | | | | + + + [...] | | | | | performed at [facility];[address] | | | | | | [address];[place], [place] | | | | | | [address] | | | | + + + [...] | | | | | performed at [facility], [address] | | | | | | [facility], | | | | | | [place] [address] | | | | + + + [...] LAB | | | | performed at [facility] | | | | | | [address] [facility];[place], [place] | | | | | | [address] | | | | | | | [...] | | | | | | MDRD IDOK traceable | | | | | | equation.Testing | | | | | | performed at [facility], [address] | | | | | | [facility], | | | | | | [place] [address] | | | | + + + [...] | | | Random | performed at [facility];[address] | | LAB | | | | [address];[place], [place] | | | | | | [address] | | | | + + + [...] LAB | | | | performed at [facility];[address] | | | | | | [address];[place] | | | | | | [address] | | | | | | | [...] | | | | | performed at [facility], [address] | | | | | | [address], | | | | | | [place] [id number] | | | | + + + [...] | | | | | | MDRD IDOK traceable | | | | | | equation.Testing | | | | | | performed at [facility], [address] | | | | | | [facility], | | | | | | [place] [address] | | | | + + + [...] | | | | | performed at [facility];[address] | | | | | | [address];[place] | | | | | | [address] | | | | + + + [...] | | | | | performed at [facility];[address] | | | | | | [facility];[place], [place] | | | | | | [address] | | | | + + + [...] at | | | | | | [facility], [address] [facility] | | | | | | [place] | | | | | | [address] | | | | + + + [...] | | | | | | MDRD IDOK traceable | | | | | | equation.Testing | | | | | | performed at [facility], [address] | | | | | | [facility], | | | | | | [place] [address] | | | | + + + [...] + + | Historically converted procedure from [employer] Epic environment | EXTERNAL LAB | + [...] + + | Migue Schumacher Conversion - 06/22/2019 11:30 PM PDT UPPER [...] at | | | | | | [facility], [address] [facility] | | | | | | [place] | | | | | | [address] | | | | + + + [...] | | | | | performed at [facility] | | | | | | [address];[place] | | | | | | [address] | | | | + + + [...] | | | Random | performed at [facility];[address] | | LAB | | | | [address];[place], [place] | | | | | | [address] | | | | + + + [...] | | | | | performed at [facility] | | | | | | [facility];[place], [place] | | | | | | [address] | | | | + + + [...] hemodialysis.The patient has been evaluated by his security rep who | | | determined that he [...] + + | Migue Schumacher Conversion - 06/22/2019 11:30 PM PDT DATE [...] hemodialysis.The patient has been evaluated by his security rep who | | determined that he is a suitable candidate to undergo hemodialysis. The patient has | | received appropriate training regarding hemodialysis. The patient understands the | | benefit and purpose of the planned procedure of tunneled hemodialysis catheter insertion | | is to allow the patient to receive hemodialysis while waiting for a snf | | hemodialysis access such as arteriovenous [...] EXTERNAL | | | | performed at [facility];[address] | mmol/L | LAB | | | | [address];[place], [place] | | | | | | [address] | | | | + + + [...] EXTERNAL | | | | performed at [facility];[address] | mmol/L | LAB | | | | [address];[place] | | | | | | [address] | | | | + + + [...] + +---------+ + + External Lab: CBC (02/04/2019 6:47 AM PDT) + + + [...] | | | | | performed at [facility];[address] | | | | | | [facility];[place], [place] | | | | | | [address] | | | | + + + [...] | | | QUALITATIVE | performed at [facility];[address] | | LAB | | | | [address];[place], [place] | | | | | | [address] | | | | + + + [...] | | | | | | MDRD IDOK traceable | | | | | | equation.Testing | | | | | | performed at [facility];[address] | | | | | | [facility];[place], [place] | | | | | | [address] | | | | + + + [...] at | | | | | | [facility], [address] [facility] | | | | | | [place] | | | | | | [address] | | | | + + + [...] EXTERNAL | | | | performed at [facility], [address] | | LAB | | | | [address], | | | | | | [place] [address] | | | | + + + [...] EXTERNAL | | | | performed at [facility], [address] | | LAB | | | | [address], | | | | | | [place] [id number] | | | | + + + [...] | | | Random | performed at [facility];[address] | | LAB | | | | [address];[place], [place] | | | | | | [address] | | | | + + + [...] | | | | | | MDRD [facility] traceable | | | | | | equation.Testing | | | | | | performed at [facility], [address] | | | | | | [facility], | | | | | | [place] [address] | | | | + + + [...] at | | | | | | [facility], [address] [place] [address] | | | | | | [place] | | | | | | [address] | | | | + + + [...] | | | | | | MDRD IDOK traceable | | | | | | equation.Testing | | | | | | performed at [facility], [address] | | | | | | [facility], | | | | | | [place] [address] | | | | + + + [...] kidney. | | | Signed by: Omar Cervantse Date/Time: 02/01/2019 4:36 PM | | + [...] | Procedure Note | + + | EndyMigue de la rosa Conversion - 06/22/2019 11:30 PM PDT ULTRASOUND [...] at | | | | | | [facility];[address] [place] [address] | | | | | | [facility];[place] [address] | | | | + + + [...] | APPEARANCE HAZY RBC'S | | | <91232 TOTAL | | | NUCLEATED CELLS 622 NEUTROPHILS | | | 48 LYMPHOCYTES | | | 5 MONOCYTES/MACROPHAGES | | | 46 Mesothelial Cells | | | 1 CELLS COUNTED 100 | | | Testing performed at [facility];[address] [facility];[place] [address] | | + + + + +---------+ [...] EXTERNAL | | | | performed at [facility];[address] | mmol/L | LAB | | | | [address];[place], [place] | | | | | | [address] | | | | + + + [...] at | | | | | | [facility];[address] [place] [address] | | | | | | [facility];[place] [address] | | | | + + + [...] + + | Historically converted procedure from [facility] Epic environment | EXTERNAL LAB | [...] EXTERNAL | | | | performed at [facility];[address] | mmol/L | LAB | | | | [address];[place] | | | | | | [address] | | | | + + + [...] NEGATIVE Testing | | | performed at [facility];[address] [place] [address];[place] [address] | | + + + + +---------+ [...] | | | | | | at [facility];[address] | | | | | | [facility];[place] [address] | | | | + + + [...] at | | | | | | [facility];[address] [place] [address] | | | | | | [facility];[place] [address] | | | | + + + [...] EXTERNAL | | | | performed at [facility];[address] | | LAB | | | | [address];[place], [place] | | | | | | [address] | | | | + + + [...] EXTERNAL | | | | performed at [facility];[address] | | LAB | | | | [address];[place], [place] | | | | | | [address] | | | | + + + [...] | | | | | performed at [facility] | | | | | | [address];[place], [place] | | | | | | [address] | | | | + + + [...] | | | Fingerstick | performed at [facility];[address] | | LAB | | | | [address];[place], [place] | | | | | | [address] | | | | + + + [...] | SIRS (systemic inflammatory response syndrome) (HCC) Systemic inflammatory response | | syndrome, unspecified | + + | Infection associated with peritoneal dialysis catheter, initial encounter (HCC) | + + | Ovarian mass, right | + + documented in this encounter
--- OUTSIDE RECORDS SUMMARY | ~2020-05-11 | XMS | Clinical Summary ---
Demographics + + + | Address | [address] | | | [place] [address] | + + + | Home Phone | | + + + | Preferred Language | Unknown | + + + | Marital Status | | + + + | Latter-Day Affiliation | Unknown | + + + | Race | Unknown | + + + | Ethnic Group | Unknown | + + + Author + + + | Author | [facility] | | | and [place] | + + + | Organization | [facility] | | | and [place] | + + + | Address | Unknown | + + + | Phone | Unavailable | + + + Support + + + + + | Name | Relationship | Address | Phone | + + + + + | Lyubov Smalls | ECON | [place], [place] | | | | | [address] | | + + + + + | Lydia Palm | ECON | [place], [place] | | | | | [address] | | + + + + + | melinda METZ" | ECON | [place], [place] | | | reba | | [address] | | + + + + + | Jose C Oconnor | ECON | [place] | | | | | [place] | | | | | [address] | | + + + + + Care Team Providers + +------+ + | Care Speech And Language Tutor Name | Role | Phone | [...] automatically from request for surgery | | [id number] | + + + + + | [...] automatically from request for surgery | | [id number] | + + + + + | ESRD on hemodialysis | 08/25/2019 | + + + + + | Overview: Added automatically from request for surgery | | [id number] | + + + + + | ESRD on dialysis | 07/06/2019 | + + + + + | Overview: Added automatically from request for surgery | | [id number] | + + + + + | Wound infection after surgery | 07/06/2019 | + + + + + | Overview: Added automatically from request for surgery | | [id number] | + + + + + | [...] see the ultrasound results. | + + Immunizations + + + + [...] Health Maintenance | Due Date | Last | Comments | | | | Done | | + + + + + | Vaccine: | | | | | Dtap/Tdap/Td (1 - | 7 | | | | Tdap) | | | | + + + + + | Adult Annual | | | | | Wellness Visit | 5 | | | + + + + + | Vaccine: | | 11/07/20 | | | Pneumococcal 19-64 | 6 | 15 | | | (2 of 3 - PCV13) | | | | + + + + + | Vaccine: Influenza | | 09/06/20 | | | (#1) | 0 | 16, | | | | | 10/23/20 | | | | | 15, | | | | | 08/23/20 | | | | | 14, | | | | | Addition | | | | | al | | | | | history | | | | | exists | | + + + + + | Cervical Cancer | | 04/03/20 | | | Screening (Pap) | 3 | 18 | | + + + + + [...] | | 11/09/ | [id number] | | [id number] - Sn/AImplanted: | | Arm | ARTG [...] on | | | | | | /D08 | | 01/11/2020 by Mundo Ramos, | | | | | | 8-045 | | at [facility] | | | | | | | | [facility] | | | | | | | + +------+--------+ +--------+--------+--------+ Results Not on [...] +--------+ +---------+--------+ | MEDICARE | MEDICA | [id number] | Effect | [phone] | | Medica | | | RE | | elizabeth | 5 | | re | | | PART A | | for | | | | | | | | all | | | | | | | | dates | | | | + +--------+ +--------+ +---------+--------+ | BCBS | BCBS | [id number] | 11/10/19 | | | PPO | | | FEDERA | | 16-Pre | | | | | | L FEP | | sent | | | | + +--------+ +--------+ +---------+--------+ | MEDICARE | MEDICA | [id number] | | [phone] | | Medica | | | RE | | 015-Pr | 5 | | re | | | PART A | | esent | | | | + +--------+ +--------+ +---------+--------+ | [facility] | [employer]HS | [id number] | 02/09/20 | | | Indemn | [...] | | Lien | al/Salvador | | 1979 | [phone] | [place] | | | caesar | | | 9 (Home) | [phone] | + +--------+ +--------+ + + | Ramona Oconnor | Person | Self | [birth year] | [address] | | Lien | al/Fam | | 1980 | [phone] | [place] | | | caesar | | | 9 (Home) | [phone] | + +--------+ +--------+ + + Advance Directives + + + + + | Type | Date Recorded | Patient | Explanation | | | | 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
--- OUTSIDE RECORDS SUMMARY | ~2020-05-11 | XMS | Encounter Summary ---
Demographics + + + | Address | [address] | | | [place] [address] | + + + | Home Phone | | + + + | Preferred Language | Unknown | + + + | Marital Status | | + + + | Jewish Affiliation | Unknown | + + + | Race | Unknown | + + + | Ethnic Group | Unknown | + + + Author + + + | Author | [facility] | | | and [place] | + + + | Organization | [facility] | | | and [place] | + + + | Address | Unknown | + + + | Phone | Unavailable | + + + Support + + + + + | Name | Relationship | Address | Phone | + + + + + | Lyubov Smalls | ECON | [place], [place] | | | | | [phone] | | + + + + + | Lydia Palm | ECON | [place], [place] | | | | | [address] | | + + + + + | melinda METZ" | ECON | [place], [place] | | | reba | | [phone] | | + + + + + | Jose C Oconnor | ECON | [place] | | | | | [place] | | | | | [phone] | | + + + + + Care Team Providers + +------+ + | Care Paint Department Supervisor Name | Role | Phone | + +------+ + | Juan F Whitley DO | PCP | | + +------+ + Encounter Details +--------+ + + + + | Date | Type | Department | Care Team | Description | +--------+ + + + + | 03/04/ | Hospital | [facility] | [place], | Generalized | | 2018 - | Encounter | [facility] [address] | MD Jose [address] | abdominal pain; | | | | [address] | [address] | End-stage renal | | 03/09/ | | [place], [place] | [place] [address] | disease on | | 2018 | | [address] | [phone] | peritoneal dialysis | | | | [phone] | | ([facility]); | | | | | [...] original. Discharge Summaries by ODALIS ColónR3 at 03/09/18 6223 Author: AZALIA Colón Service: Hospitalist Author Type: Resident-Y2 Filed: 03/09/18 2377 Date of Service: 03/09/18654 Status: Attested Ordinary Seaman: ODALIS ColónR3 (Resident-Y3) Cosigner: Kemal Maloney MD at 11/27 9573 Attestation signed by Kemal Maloney MD at 03/10/18 7384 Patient seen and examined along with residents prior to discharge. She is 38 year old lady (not 2 year old as mentioned in the note of my resident) who is on peritoneal dialysis at [facility] presented with PD induced peritonitis and was treated with IV vancomycin and IV ceftazidi me. Patient responded well to antibiotics and is being discharged home in stable condition w ith 10 more days of vancomycin and ceftazidime per nephrology recommendations. Service: Hospitalist Discharge Summary Pt: Ramona Oconnor AGE/SEX: 38 y.o. female ROOM: [facility]/406-1 PCP: [facility] : 1980 Date of Admission: 03/04/2018 Date of Discharge: Discharge Provider: Lukas Lynn MD-R2/Dr. Kemal Maloney Treatment Team: Consulting Physician: Chago Rey MD Consulting Physician: Linden Monte MD Admitting Provider: Jose Doran MD Discharge Diagnoses: Principal Problem: Abdominal pain Active Problems: Gastroesophageal reflux disease without esophagitis ESRD on peritoneal dialysis Nausea with vomiting Anemia in ESRD (end-stage renal disease) ([facility]) Resolved Problems: * No resolved hospital problems. [...] was 9. She was discharged home to [facility] 10 more days of antibiotics to be [...] Mar 05 2018 3:51AM Referring Provider Line: [phone] ID: [id number] PLAN Patient is to be discharged home. She will be followed up tomorrow with her peritoneal dial ysis nurse to continue her outpatient antibiotic therapy. Disposition: Home Condition: Good Code Status: DNR/DNI No discharge procedures on file. Follow up: [facility] [address] [place] [address] In 1 week hospital follow up Medication [...] Refills: 0 Commonly known as: NORVASC ergocalciferol 75776 units capsule Refills: 0 Commonly known as: [...] Author: Dario Fry Service: (none) Author Type: Product Distribution Specialist Filed: 03/09/181628 Date of Service: 03/09/181627 Status: Signed Ordinary Seaman: Dario Fry (Product Distribution Specialist) Vitals: 04/30/18 1527 BP: Pulse: 80 Resp: 18 Temp: [...] ADDIE Armstrong 4:28 PM 03/09/18 onver patric Transaction, Provider Unknown - 03/09/2018 12:12 PM PDT Case Management by LUCILLE Grimaldo at 03/09/18 1212 Author: LUCILLE Grimaldo Service: (none) Author Type: Mergers And Acquisitions Banker Filed: 03/09/18 6388 Date of Service: 03/09/18 1212 Status: Addendum Ordinary Seaman: LUCILLE Grimaldo (Mergers And Acquisitions Banker) Related Notes: Original Note by LUCILLE Grimaldo (Mergers And Acquisitions Banker) filed at 03/09/18 1528 Discharge planning: CM was advised by Dr. Maloney that pt's IV Abx orders will be written b y Dr. Monte ([phone]). CM paged Dr Monte for orders and discharge plan. CM needs to call Dr Lukas Lynn at [phone] when discharge plan is confirmed and when pt is ready for di alen. [address] Lukas Lynn and he is researching and will call CM back. 1633 CM faxed H&P and Discharge Summary to [facility], Attn: Maryse, (Fa x: ). Linden Kincaid MD - 03/09/2018 7:25 AM PDTFormatting of this note might be different from th e original. Progress Notes by Linden Monte MD at 03/09/18 2928 Author: Linden Monte MD Service: Nephrology Author Type: Physician Filed: 03/11/18 0581 Date of Service: 03/09/18 0725 Status: Signed Ordinary Seaman: Linden Monte MD (Physician) [facility] Service: NEPHROLOGY Progress Note Ramona Oconnor 38 y.o. [id number] 406/406-1 female [facility] Day: LOS: 4 days Patient [...] Procedure: ESOPHAGOGASTRODUODENOSCOPY; Surgeon: Beena Peters MD; Location: [facility]; Service: Gastroenterology; Laterality: N/A; PERITONEAL CATHETER INSERTION N/A 10/28/2015 Procedure: LAPAROSCOPIC - PERITONEAL DIALYSIS CATH INSERTION; Surgeon: Mundo Ramos MD; Lo cation: [facility]; Service: Vascular; Laterality: N/A; [...] Mar 05 2018 3:51AM Referring Provider Line: [phone] ID: [id number] PROBLEM LIST Principal Problem: Abdominal pain Active Problems: Gastroesophageal reflux disease without esophagitis ESRD on peritoneal dialysis Nausea with vomiting Anemia in ESRD (end-stage renal disease) ([facility]) ASSESSMENT & PLAN ESRD ON PD Tolerating [...] called and spoke with pd rn at [facility] kindly agreed to see her i n [...] DETAIL, VERBALIZ ES UNDERSTANDING LINDEN MONTE MD [facility] Seen earlier and charting completed later Dictation software, [employer], used which may contain error for similar [...] Nurse Filed: 03/08/18 1840 Date of Service: 03/08/188 Status: Signed Ordinary Seaman: Alyce Fonseca RN (Registered Nurse) Patient tolerating diet. Hydrocodone given for pain rated 5/10. onver patric Transaction, Provider Unknown - 03/08/2018 4:29 PM PDT Nurse Progress Note by Alyce Fonseca RN at 03/08/18 1629 Author: Alyce Fonseca RN Service: (none) Author Type: Registered Nurse Filed: 03/08/18 1630 Date of Service: 03/08/18 1629 Status: Signed Ordinary Seaman: Alyce Fonseca RN (Registered Nurse) Patient tolerating small amount of food. She had Phengan PO x 1 and Zofran IV x 1 for nause a which was effective. Dilaudid IV given x 1. PO medication offered for pain when tolerating diet. VSS. alclaudiar son, Lukas Raymundo MD - 03/08/2018 6:39 AM PDT Progress Notes by Lukas Lynn MD-R3 at 03/08/18 0639 Author: ODALIS ColónR3 Service: Hospitalist Author Type: Resident-Y2 Filed: 03/08/18 1647 Date of Service: 03/08/18 0639 Status: Attested Addendum Ordinary Seaman: Lukas Lynn MD-R3 (Resident-Y3) Related Notes: Original Note by Lukas Lynn MD-R3 (Resident-Y3) filed at 03/08/18 1 309 Cosigner: [...] Ramona Oconnor AGE/SEX: 38 y.o. female ROOM: [address] [place] [address] PCP: [facility] : 1980 PATIENT SUMMARY This is [...] C) (03/08 114) BP: (103-150)/(68-78) 136/78 (03/08 1144) Heart Rate: [73-94] 78 (03/08 114) Resp: [16-18] 16 (03/08 114) SpO2: [94 %-99 %] 95 % (03/08 114) Weight: [83.7 kg (184 lb 8.4 oz)-84 [...] vomiting Anemia in ESRD (end-stage renal disease) ([facility]) Active comorbid conditions include: - renal [...] Note by Alyce Fonseca RN at 03/07/18 1778 Author: Alyce Fonseca RN Service: (none) Author Type: Registered Nurse Filed: 03/07/18 9643 Date of Service: 03/07/18 325 Status: Signed Ordinary Seaman: Alyce Fonseca RN (Registered Nurse) Patient resting [...] Notes by Cesar Gatica MD at 03/07/18 9007 Author: Cesar Gatica MD Service: Hospitalist Author Type: Physician Filed: 03/07/18 1131 Date of Service: 03/07/18 0932 Status: Signed Ordinary Seaman: Cesar Gatica MD (Physician) Related Notes: Original Note by Cesar Gatica MD (Physician) filed at 03/07/18 0964 [facility] Service: Hospitalist Progress Note Hospital Day: LOS: [...] with no edema. DATA Recent Labs Lab 03/07/1845203/06/1852403/05/1833103/04/182154 WBC 10.91 9.41 12.57* 14.92* HGB 12.4 [...] 03/07/2018 Invalid input(s): LABALBU Recent Labs Lab 03/07/18 0453 03/06/18 0525 03/05/18 0332 MG 3.0* 3.2* 3.5* No results for input(s): AMYLASE in the last 168 hours. No results for input(s): PHART, PO2ART, NOO7AWJ, I1DKFOUW, BEART in the last 168 hours. No [...] Mar 05 2018 3:51AM Referring Provider Line: [phone] ID: [id number] PROBLEM LIST Principal Problem: Abdominal [...] Management by Ashley Calvert RN at 03/06/18 1503 Author: Ashley Calvert RN Service: (none) Author Type: Registered Nurse Filed: 03/06/18 9433 Date of Service: 03/06/18 1504 Status: Signed Ordinary Seaman: Ashley Calvert RN (Registered Nurse) Discharge Planning: Reviewed previous CM notes and attended am rounds. Pt lives in [facility] [place] with sister and spouse. Home peritoneal dialysis pt. Per nsg, currently do not anticipate any discharge needs. No indication at this time that pt will discharge on IV abx. ASHLEY CALVERT 03/06/2018 3:07 PM onver patric Transaction, Provider Unknown - 03/06/2018 1:16 PM PDT Nurse Progress Note by SN Neris at 03/06/18 0402 Author: SN Neris Service: (none) Author Type: Software Quality Assurance Specialist Filed: 03/06/18 6317 Date of Service: 03/06/18 1316 Status: Signed Ordinary Seaman: SN Neris (Software Quality Assurance Specialist) Pt was anxious and upset when I [...] PDT Progress Notes by ODALIS ColónR3 at 03/06/18 0646 Author: AZALIA Colón Service: Hospitalist Author Type: Resident-Y2 Filed: 03/06/182000 Date of Service: 03/06/18645 Status: Attested Addendum Ordinary Seaman: AZALIA Colón (Resident-Y3) Related Notes: Original Note by AZALIA Colón (Resident-Y3) filed at 03/06/18 1 554 Cosigner: Cesar Gatica MD at 03/06/182122 Attestation signed by Cesar Gatica MD at 03/06/182122 I have seen and examined the patient and agree with residents note. PROGRESS NOTE Pt: Ramona Oconnor AGE/SEX: 38 y.o. female ROOM: [address] [place] [address] PCP: [facility] : 1980 PATIENT SUMMARY This is [...] QTC Calculation (Bezet) 507 ms Calculated P Cary 48 degrees Calculated R Cary 71 degrees Calculated T Cary 130 degrees Diagnosis Normal sinus rhythm T [...] vomiting Anemia in ESRD (end-stage renal disease) ([facility]) Active comorbid conditions include: - renal disease, CKD (ESRD) - obesity due to excess calories - GERD without esophagitis Length of stay: 1 days Code status: DNR/DNI Disposition: Inpatient Lukas Lynn MD-R2 03/06/2018 3:25 PM onversion Tr ansaction, Provider Unknown - 03/05/2018 4:07 PM PDTFormatting of this note might be differ ent from the original. Case Management by LUCILLE Grimaldo at 03/05/18 1603 Author: LUCILLE Grimaldo Service: (none) Author Type: Mergers And Acquisitions Banker Filed: 03/05/18 1612 Date of Service: 03/05/18 1607 Status: Signed Ordinary Seaman: LUCILLE Grimaldo (Mergers And Acquisitions Banker) 03/05/18 1600 Discharge Planning Evaluation Admitting Diagnosis (Abdominal pain) Readmission No Living Arrangements Spouse/significant other;Family members Support Systems Spouse/significant other;Family members Type of Residence Private residence House type House 2 story Steps to enter 1 Independent with ADL's Yes Independent with Mobility Yes Home Care Services No Caregiver after Discharge No Mental Status Unable to answer questions Prior functional status (Independent) Power of Syrup Maker No Resources Financial concerns No Transportation issues No Patient/Family concerns No Prescription Plan Yes Name of Pharmacy ([facility] or [facility] in [place]) Previous home health equipment No Anticipated Disposition Facility Type Home CM met with pt(sleeping) and pt's mother, Lyubov [place] and discussed dischar ge planning. Pt is a 38 y.o., female admitted for abdominal pain. Pt resides at [address] [place] [address] with her sister, Lydia and pt's , Jose C. Pt was independent with ADL's and mobility prior to admission. Pt has not had previous outpt PT/OT services, home O2, home care services, and has not take n blood thinners prior to admission. Pt receives home dialysis daily from 11pm to 11am. Patient's PCP is: Pt goes to the [facility] and sees Dr. Jerry as well. Patient's insurance: [employer]/Medicare/[facility] Coverage concerns: No Medication coverage/concerns: No Rx Bedside Delivery: No Community resources utilized / needed: No Assistance in transportation: No Identification of any specific education / training: No Barriers to Discharge / Alternative housing needed: No Anticipated DCP: return home with and family support LUCILLE Grimaldo, CM onver patric Mejiasaction, Provider Unknown - 03/05/2018 1:38 PM PDT Case Management by LUCILLE Grimaldo at 03/05/181337 Author: LUCILLE Grimaldo Service: (none) Author Type: Mergers And Acquisitions Banker Filed: 03/05/181338 Date of Service: 03/05/181337 Status: Signed Ordinary Seaman: LUCILLE Grimaldo (Mergers And Acquisitions Banker) CM attempted to assess, but pt was not in the room. CM will revisit as time permits. alvor son, Lukas Raymundo MD - 03/05/2018 6:59 AM PDT Progress Notes by Lukas Lynn MD-R3 at 03/05/18 0670 Author: Lukas Lynn MD-R3 Service: Hospitalist Author Type: Resident-Y2 Filed: 03/05/18 4909 Date of Service: 03/05/18 2759 Status: Attested Ordinary Seaman: ODALIS ColónR3 (Resident-Y3) Cosigner: Kemal Maloney MD at 1814 [...] Ramona Oconnor AGE/SEX: 38 y.o. female ROOM: [address] [place] [address] PCP: [facility] : 1980 PATIENT SUMMARY This is [...] Pharmacy Note by Shelli Bustos RPH at 03/05/186 Author: Shelli Bustos RPH Service: Pharmacy Author Type: Pharmacist Filed: 03/05/18 4131 Date of Service: 03/05/18502 Status: Signed Ordinary Seaman: Shelli Bustos RPH (Pharmacist) Clinical Pharmacy Note: Renal Monitoring Height: 157.5 cm Weight: 79.9 kg Patient is on peritoneal dialysis. Pharmacy dosing for renal function per Dr. Martinez. Will order the following dosage adjustments: Pepcid 20 mg IV/PO Q24H Pharmacy will continue to follow and adjust medications as needed. Shelli Bustos, Donte 03/05/2018 5:03 AM onver patric Transaction, Provider Unknown - 03/05/2018 1:12 AM PDT Nurse Progress Note by April Madsen RN at 03/05/18111 Author: April Madsen RN Service: (none) Author Type: Registered Nurse Filed: 03/05/18114 Date of Service: 03/05/18111 Status: Signed Ordinary Seaman: April Madsen RN (Registered Nurse) This dietetic assistant called by to obtain peritoneal fluid sample for cell count, gram stain and culture. Only able to obtain 20ml of fluid even with pt repositioning in bed and l ater standing. Lab consulted if this was enough amount, lab will try to run tests and call R N back if it's insufficient. docume nted in this encounter H&P Notes Jose Doran MD - 03/04/2018 11:33 PM PDTFormatting of this note might be diffe rent from the original. H&P by Jose Doran MD at 03/04/18 4774 Author: Jose Doran MD Service: Hospitalist Author Type: Physician Filed: 03/05/18 0018 Date of Service: 03/04/182332 Status: Signed Ordinary Seaman: Jose Doran MD (Physician) [facility] Service: Hospitalist Admission History & Physical Date of Admission: 03/04/2018 Requesting Physician: Dr Deluna, Emergency Department Reason for Admission: Abdominal pain History Obtained From: patient CHIEF COMPLAINT: Abdominal pain HISTORY OF PRESENT ILLNESS The patient is 38 y.o. female with significant past medical history of GERD, end-stage re nal disease on peritoneal dialysis, gastroesophageal reflux disease, diverticular disease wh o presents with abdominal pain Patient refers that she woke up with abdominal pain. The pain is located in the mid abdomen , bandlike radiation, without any specific trigger or element that increase or decrease her discomfort, 7-8 out of 10 of intensity. The pain has been associated with nausea and vomitin g 3-4, mainly liquid and bile. Denies any episodes of hematemesis or hematochezia. No hist ory of diarrhea, dysuria, hematuria. No history of chills or fever at home. No history of ch est pain, cough or sputum production. Due to the worsening of the pain, the patient decided to come to emergency department for further assessment and treatment In the Emergency Department, the patient has remained hemodynamically stable. No episodes o f fever. Emergency Department provider discussed case with nephrology, Dr. Mcrae, who recom mended admission for further management. Dialysis nurse has been called in order to take per itoneal fluid sample. Patient will be admitted under the hospital service for further manage ment REVIEW OF SYSTEMS Review of Systems Constitutional: Positive for fatigue. Negative for chills and fever. HENT: Negative for postnasal drip and rhinorrhea. Respiratory: Negative for apnea, cough, choking, shortness of breath and wheezing. Cardiovascular: Negative for chest pain, palpitations and leg swelling. Gastrointestinal: Positive for abdominal pain, nausea and vomiting. Negative for abdominal distention, blood in stool and diarrhea. Genitourinary: Negative for difficulty urinating and dysuria. Musculoskeletal: Negative for arthralgias and back pain. Skin: Negative for color change. Neurological: Negative for dizziness, syncope and headaches. Psychiatric/Behavioral: Negative for agitation and confusion. Past Medical History Diagnosis Date Diverticulosis GERD (gastroesophageal reflux disease) Hypercalcemia 09/07/2017 Hyperphosphatemia 10/28/2015 Hypocalcemia 10/28/2015 Itching 10/28/2015 Metabolic acidosis 10/28/2015 Obesity Peritonitis associated with peritoneal dialysis (HCC) 01/24/2017 Uremia 10/28/2015 Past Surgical History Procedure Laterality Date ESOPHAGOGASTRODUODENOSCOPY N/A 09/10/2017 Procedure: ESOPHAGOGASTRODUODENOSCOPY; Surgeon: Beena Peters MD; Location: [facility]; Service: Gastroenterology; Laterality: N/A; PERITONEAL CATHETER INSERTION N/A 10/28/2015 Procedure: LAPAROSCOPIC - PERITONEAL DIALYSIS CATH INSERTION; Surgeon: Mundo Ramos MD; Lo cation: [facility]; Service: Vascular; Laterality: N/A; No current facility-administered medications on file prior to encounter. Current Outpatient Prescriptions on File Prior to Encounter Medication Sig Dispense Refill ALPRAZolam (XANAX) 0.5 MG tablet Take 0.5 mg by mouth nightly as needed for Sleep. amLODIPine (NORVASC) 2.5 MG tablet Take 2.5 mg by mouth daily. ergocalciferol (DRISDOL) 11036 UNITS capsule Take 50,000 Units by mouth once a week. gentamicin (GARAMYCIN) 0.1 % ointment Apply topically 3 (three) times daily. 15 g 1 LORazepam (ATIVAN) 1 MG tablet Take 1 mg by mouth every 8 (eight) hours as needed for A nxiety. ondansetron (ZOFRAN) 8 MG tablet Take 1 tablet by mouth every 8 (eight) hours as needed for Nausea. 30 tablet 11 potassium chloride (K-DUR,KLOR-CON) 20 MEQ tablet Take 1 tablet by mouth daily. 30 tabl et 0 promethazine (PHENERGAN) 25 MG tablet Take 1 tablet by mouth every 6 (six) hours as nee ded for Nausea. 30 tablet 0 sevelamer (RENVELA) 800 MG tablet Take 2 tablets by mouth 3 (three) times daily with me als. 180 tablet 1 Immunizations: Influenza: Pneumoccocal: No Known Allergies (Not in a hospital admission) History reviewed. No pertinent family history. Social [...] on file PHYSICAL EXAM Vital Signs: BP 119/57 (BP Location: Right upper arm) | Pulse 59 | Temp 97.3 F (36.3 C) | Resp 17 | Wt 79.9 kg (176 lb 2.4 oz) | SpO2 97% | BMI 32.22 kg/m Physical Exam Constitutional: She is oriented to person, place, and time. She appears well-developed. HENT: Head: Normocephalic and atraumatic. Eyes: EOM are normal. Pupils are equal, round, and reactive to light. Neck: Neck supple. No JVD present. Cardiovascular: Normal rate, regular rhythm and normal heart sounds. Exam reveals no frict ion rub. No murmur heard. Pulmonary/Chest: Effort normal. No respiratory distress. She has no wheezes. She has no ral es. Abdomina/Gl: Soft. She exhibits no distension and no mass. There is tenderness in the epiga stric area and left upper quadrant. There is no rebound and no guarding. Musculoskeletal: She exhibits no edema. Neurological: She is alert and oriented to person, place, and time. DATA Results Procedure Component Value Units Date/Time Lactic acid [[id number]] Collected: 03/04/182154 Specimen: Blood Updated: 03/04/182241 LACTIC ACID 1.7 mmol/L CBC with differential [[id number]] (Abnormal) Collected: 03/04/182154 Specimen: Blood Updated: 03/04/182237 WBC 14.92 (H) K/uL RBC 4.51 M/uL HGB 12.7 g/dL HCT 39.4 % MCV 87.4 fl MCH 28.2 pg MCHC 32.2 g/dL RDW SD 47.7 fl PLT 414 (H) K/uL MPV 7.9 fl DIFF TYPE AUTOMATED NEUTROPHILS 88.36 % LYMPHOCYTES 8.25 % MONOCYTES 2.59 % EOSINOPHILS 0.09 % BASOPHILS 0.71 % NEUTROPHILS ABS 13.18 (H) K/uL LYMPHOCYTES ABS 1.23 K/uL MONOCYTES ABS 0.39 K/uL EOSINOPHILS ABS 0.01 K/uL BASOPHILS ABS 0.11 (H) K/uL MORPHOLOGY RBC AND PLT MORPHOLOGY APPEAR NORMAL Platelet Estimate ADEQUATE Diff Comment SLIDE SCANNED, AGREES WITH AUTOMATED RESULTS. Comprehensive metabolic panel [[id number]] (Abnormal) Collected: 03/04/182154 Specimen: Blood Updated: 03/04/182232 SODIUM 139 mmol/L POTASSIUM 3.8 mmol/L CHLORIDE 97 (L) mmol/L CO2 30 mmol/L ANION GAP AGAP 16 mmol/L GLUCOSE 96 mg/dL BUN 33 (H) mg/dL CREATININE 15 (H) mg/dL BUN/CREAT 2 CALCIUM 9.0 mg/dL TOTAL PROTEIN 7.5 g/dL Albumin 2.6 (L) g/dL GLOBULIN 5.0 (H) g/dL A/G 0.5 (L) TBIL 0.4 mg/dL ALK PHOS 106 U/L AST 13 U/L ALT 14 U/L EGFR 3 (L) mL/min/1.73m2 PROBLEM LIST Principal Problem: Abdominal pain Active Problems: Gastroesophageal reflux disease without esophagitis ESRD on peritoneal dialysis Nausea with vomiting ASSESSMENT & PLAN Impression patient is 38 y.o. female with significant past medical history of GERD, end-stage renal disease on peritoneal dialysis, gastroesophageal reflux disease, diverticular disease who pr esents with abdominal pain Assessment -Abdominal pain. With no clear signs of peritonitis at physical exam, nor sepsis.? Etiology . Will rule out diverticular disease, secondary peritonitis -End-stage renal disease on peritoneal dialysis -Gastroesophageal reflux disease -History of diverticular disease Plan Admit to inpatient Emergency Department provider already consulted nephrology, Dr. Mcrae Dialysis nurses commented take samples from peritoneal fluid - pending results we will deci de if the patient will benefit from antibiotic therapy (vancomycin added to the dialysis flu id +/- cefepime) UA, urine culture, blood cultures [address] abdomen and pelvis Pain management Antiemetic therapy Deep vein thrombosis GI prophylaxis CODE STATUS-DNR/DNI-discussed with patient at bedside Disposition: Inpatient Code Status: Prior Primary Care Physician: [facility] Jose Doran MD 03/05/2018 documented i n this encounter Procedure Notes Andres Mejia MD - 03/08/2018 8:21 AM PDT Procedures by Andres Mejia MD at 03/08/18820 Author: Andres Mejia MD Service: Nephrology Author Type: Physician Filed: 03/08/18 1211 Date of Service: 03/08/18820 Status: Signed Ordinary Seaman: Andres Mejia MD (Physician) The patient is seen & examined during dialysis. she says that she feels fine today. The following portions of the patient's history were reviewed and updated as appropriate: l aboratory data, allergies, current medications, and problem list. P.E. BP 108/70 (BP Location: Left upper arm) | Pulse 86 | Temp 98 F (36.7 C) (Oral) | Res p 16 | Ht 1.575 m (5' 2") | Wt 84 kg (185 lb 3 oz) | SpO2 95% | ? No | BMI 33.87 kg/m General appearance: Pleasant, not in acute distress. Lungs: Good A/E to auscultation bilaterally. There are no wheezes. Heart: Regular rate and rhythm without any rub, gallop. No murmur. Abdominal exam: Soft and nontender; no organomegaly. Extremities: Warm to touch with no leg edema. There is no cyanosis. Neurological: Awake, alert, and oriented to time, place, and person. Access: PD cath site is ok Lab Results Component Value Date BUN 28 (H) 03/08/2018 CREATININE 15.3 (H) 03/08/2018 EGFR 3 (L) 03/08/2018 NA 137 03/08/2018 K 2.9 (L) 03/08/2018 CL 97 (L) 03/08/2018 CO2 26 03/08/2018 CA 8.1 (L) 03/08/2018 PHOS 6.2 (H) 03/08/2018 MG 3.0 (H) 03/07/2018 ALB 1.9 (L) 03/08/2018 HGB 12.4 03/07/2018 Assessment: Ms. Oconnor is a 38 y.o. female patient with ESRD, PD. PD-associated peritonitis. Complications identified during her dialysis treatment: none so far. UF 1400 ml overnight Recommendations: We'll arrange for ABs as OP tomorrow OI ordered K suppl, would recheck in am Received Vanc and Ceftaz Advise fluid restriction of 1.2 L per 24 hrs Prot suppl stressed No Epo today Next dialysis treatment is daily per the submitted pre-arana orders. Andres Mejia MD FACP Andres Larose MD - 03/07/2018 11:43 AM PDT Procedures by Andres Mejia MD at 03/07/18 1145 Author: Andres Mejia MD Service: Nephrology Author Type: Physician Filed: 03/07/18 1154 Date of Service: 03/07/18 1143 Status: Signed Ordinary Seaman: Andres Mejia MD (Physician) The patient is seen & examined during dialysis. she says that she feels 'ok' today. The following portions of the patient's history were reviewed and updated as appropriate: l aboratory data, allergies, current medications, and problem list. P.E. BP 103/67 (BP Location: Left upper arm) | Pulse 76 | Temp 98.3 F (36.8 C) (Oral) | R enmanuel 18 | Ht 1.575 m (5' 2") | Wt 84.6 kg (186 lb 8.2 oz) | SpO2 95% | ? No | BMI 34.11 kg/m General appearance: Pleasant, not in acute distress. Lungs: Good A/E to auscultation bilaterally. There are no wheezes. Heart: Regular rate and rhythm without any rub, gallop. No murmur. Abdominal exam: Soft and nontender; no organomegaly. Extremities: Warm to touch with no leg edema. There is no cyanosis. Neurological: Awake, alert, and oriented to time, place, and person. Access: PD cath site is ok Lab Results Component Value Date BUN 31 (H) 03/07/2018 CREATININE 15.2 (H) 03/07/2018 EGFR 3 (L) 03/07/2018 NA 136 03/07/2018 K 3.1 (L) 03/07/2018 CL 94 (L) 03/07/2018 CO2 27 03/07/2018 CA 8.0 (L) 03/07/2018 PHOS 6.0 (H) 03/07/2018 MG 3.0 (H) 03/07/2018 ALB 2.2 (L) 03/07/2018 HGB 12.4 03/07/2018 Assessment: Ms. Oconnor is a 38 y.o. female patient with ESRD, PD. PD-associated peritonitis. Complications identified during her dialysis treatment: none so far. Recommendations: UF as tolerated Received Vanc and Ceftaz Advise fluid restriction of 1.2 L per 24 hrs Prot suppl stressed No Epo today Next dialysis treatment is daily per the submitted pre-arana orders. Andres Mejia MD FACP Andres Larose MD - 03/06/2018 4:18 PM PDT Procedures by Andres Mejia MD at 03/06/18 2751 Author: Andres Mejia MD Service: Nephrology Author Type: Physician Filed: 03/06/181 Date of Service: 03/06/181617 Status: Signed Ordinary Seaman: Andres Mejia MD (Physician) The patient is seen & examined during dialysis. she says that she feels 'better' today. The following portions of the patient's history were reviewed and updated as appropriate: l aboratory data, allergies, current medications, and problem list. P.E. BP 108/70 (BP Location: Right upper arm) | Pulse 67 | Temp 99 F (37.2 C) (Oral) | Re sp 18 | Ht 1.575 m (5' 2") | Wt 84.6 kg (186 lb 8.2 oz) | SpO2 98% | ? No | BMI 34.11 kg/m General appearance: Pleasant, not in acute distress. Lungs: Good A/E to auscultation bilaterally. There are no wheezes. Heart: Regular rate and rhythm without any rub, gallop. No murmur. Abdominal exam: Soft and nontender; no organomegaly. Extremities: Warm to touch with no leg edema. There is no cyanosis. Neurological: Awake, alert, and oriented to time, place, and person. Access: PD cath site is ok Lab Results Component Value Date BUN 34 (H) 03/06/2018 CREATININE 15.0 (H) 03/06/2018 EGFR 3 (L) 03/06/2018 NA 138 03/06/2018 K 3.5 03/06/2018 CL 96 (L) 03/06/2018 CO2 29 03/06/2018 CA 7.7 (L) 03/06/2018 PHOS 5.5 (H) 03/06/2018 MG 3.2 (H) 03/06/2018 ALB 2.2 (L) 03/06/2018 HGB 12.0 03/06/2018 Assessment: Ms. Oconnor is a 38 y.o. female patient with ESRD, PD. PD-associated peritonitis. Complications identified during her dialysis treatment: none so far. Recommendations: UF as tolerated Received Vanc and Ceftaz Advise fluid restriction of 1.2 L per 24 hrs Prot suppl stressed No Epo today; recheck Hb in AM Next dialysis treatment is daily per the submitted pre-arana orders. Andres Mejia MD FACP berum, Chago Lexi Peter D - 03/05/2018 6:52 PM PDT Procedures by Chago Rey MD at 03/05/181851 Author: Chago Rey MD Service: Nephrology Author Type: Physician Filed: 03/05/182153 Date of Service: 03/05/181851 Status: Signed Ordinary Seaman: Chago Rey MD (Physician) Procedure Orders: 1. Peritoneal Dialysis ([facility]) [[id number]] ordered by Chago Rey MD at 03/05/181838 The patient is seen & examined during dialysis. she says that she feels 'better' today. sh e denies any cp, sob, abd pain, n/v now. The following portions of the patient's history were reviewed and updated as appropriate: l aboratory data, allergies, current medications, and problem list. P.E. BP 96/51 (BP Location: Right upper arm) | Pulse 71 | Temp 98.1 F (36.7 C) (Oral) | R enmanuel 16 | Ht 1.575 m (5' 2") | Wt 85.9 kg (189 lb 6 oz) Comment: pre PD tx - bedscale | SpO 2 97% | ? No | BMI 34.64 kg/m General appearance: Pleasant, not in acute distress. Lungs: Good A/E to auscultation bilaterally. There are no wheezes. Heart: Regular rate and rhythm without any rub, gallop. No murmur. Abdominal exam: Soft and nontender; no organomegaly. Extremities: Warm to touch with no leg edema. There is no cyanosis. Neurological: Awake, alert, and oriented to time, place, and person. Normal gross motor po wer. There is no asterixis. Access: PD cath site is benign. Lab Results Component Value Date BUN 34 (H) 03/05/2018 CREATININE 15.3 (H) 03/05/2018 EGFR 3 (L) 03/05/2018 NA 138 03/05/2018 K 3.5 03/05/2018 CL 95 (L) 03/05/2018 CO2 29 03/05/2018 CA 7.9 (L) 03/05/2018 PHOS 5.8 (H) 03/05/2018 MG 3.5 (H) 03/05/2018 ALB 2.3 (L) 03/05/2018 ALB 2.2 (L) 03/05/2018 HGB 11.0 (L) 03/05/2018 Assessment: Ms. Oconnor is a 38 y.o. female patient with ESRD, PD. Presented with: Intractable N/V Admitted with: Intractable N/V Found to have: PD-associated peritonitis. Complications identified during her dialysis treatment: none so far. Recommendations: UF as tolerated Advise fluid restriction of 1.2 L per 24 hrs Prot suppl stressed No Epo today; recheck Hb in AM Next dialysis treatment is daily per the submitted pre-arana orders. CHAGO REY MD documented in thi s encounter Consult Notes Chago Rey MD - 03/05/2018 9:09 AM PDT Consults by Chago Rey MD at 03/05/18 0909 Author: Chago Rey MD Service: Nephrology Author Type: Physician Filed: 03/05/18 1736 Date of Service: 03/05/18908 Status: Signed Ordinary Seaman: Chago Rey MD (Physician) Consult Orders: 1. Inpatient consult to Nephrology [[id number]] ordered by Jose Doran MD at 0018 Hospital Problem List: Principal Problem: Abdominal pain Active Problems: Gastroesophageal reflux disease without esophagitis ESRD on peritoneal dialysis Nausea with vomiting I was asked by the ED team to see Ms. Oconnor in consult today. As the admitting/consulting team is familiar with her case, I will not state her past history in detail. Briefly, she i s a 38 y.o. female patient with history as delineated in the Past Medical & Surgical History sections. She was admitted with intractable N/V. 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 She presented with the above. She missed her PD last night because of those sxs. History & ROS obtained from : patient, chart review. The patient has history of ESRD, PD. S he says that she feels 'fair ' today. No history of blurred vision tinnitus, headache, feve r, chills, or cough. No nausea, vomiting, abdominal pain, diarrhea, melena, or hematochezia . No chest pain, palpitation, dizziness, loss of consciousness, orthopnea, paroxysmal noctu rnal dyspnea, or leg edema. No dysuria, incontinence, or symptoms of UTI. She was seen with family at bedside. Reports she woke up feeling nauseated yesterday, had emesis later that day and developed ab dominal pains that became worse and had more emesis, came to the ER later that day. No const ipation. Reports no PD treatment issues lately, no drainage or issues with PD cath site. Mis sed PD treatment last night. The following portions of the patient's history [...] otherwise negative. amLODIPine 2.5 mg Oral Daily [START ON 03/09/2018] ergocalciferol 50,000 Units Oral Weekly famotidine 20 mg Oral Daily Or famotidine 20 mg Intravenous Daily heparin (porcine) 5000 unit/0.5mL 5,000 Units Subcutaneous 2 times per day sevelamer 1,600 mg Oral TID WC sodium chloride 10 mL Intravenous Q8H I/O last 3 completed shifts: In: 980 [P.O.:480; IV Piggyback:500] Out: 640 [Emesis/NG output:640] No intake/output data recorded. P.E. BP 93/52 (BP Location: Right upper arm) | Pulse 88 | Temp 98 F (36.7 C) (Oral) | Res p 16 | Ht 1.575 m (5' 2") | Wt 79.9 kg (176 lb 2.4 oz) | SpO2 93% | ? No | BMI 32.22 kg/m General appearance: Pleasant, not in acute distress. Laying in bed. Neck: Supple without tracheal deviation or jugular [...] thought content are normal. Access: PD cath in place. Site is benign. Lab Results Component Value Date BUN 34 (H) 03/05/2018 CREATININE 15.3 (H) 03/05/2018 EGFR 3 (L) 03/05/2018 NA 138 03/05/2018 K 3.5 03/05/2018 CL 95 (L) 03/05/2018 CO2 29 03/05/2018 CA 7.9 (L) 03/05/2018 PHOS 3.9 09/10/2017 MG 3.5 (H) 03/05/2018 ALB 2.3 (L) 03/05/2018 ALB 2.2 (L) 03/05/2018 HGB 11.0 (L) 03/05/2018 Assessment/Recommendations: Ms. Oconnor is a 38 y.o. female patient with ESRD, PD. Presented with: Intractable N/V Admitted with: Intractable N/V Found to have: PD-Associated Peritonitis: Start Vanco & Ceftaz as ordered Plan to reduce Ceftaz dose tomorrow to 1g daily Will need re-dosing of the Vancomycin prior to discharge, unless Vanco level dictates other pringle Sterile technique stressed Re-educated on sterile technique VOLUME: EABV is ok no IVF need No diuresis needed Advise fluid restriction of 1.2L per 24 hrs There is no acute UF indication Given her tendency for anasarca: Encourage adequate intake & close dietitian F/U. Encourage ambulation safely. Encourage the adequate use of an incentive spirometer. 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 Plan PD for tonight no IVF needed Strict I/O & daily weights. Dose all of her meds to her current daily PD. Continue to avoid all kinds of nephrotoxins. Target euvolumia with a MAP>75 mmHg as possible. BLOOD PRESSURE: Low Hold amlodipine for SBP < 120 mmHg ELECTROLYTES: Acceptable; mild hypermag Phosphorus: Recheck today ALBUMIN: Severe hypoalbuminemia Prot suppl stressed ANEMIA: mild Associated with ESRD No ANGELA need now PM F/U: Feels much better now. Plan PD for tonight per the pre-arana submitted orders. I discussed today with Ms. Oconnor the meaning of her presenting sxs and the interaction of that with her ESRD. I discussed with the primary team the case at the time of this encounter. I spent 70 total minutes today in interviewing & examining the patient, reviewing & updatin g the patient's chart, formulating a plan, in addition to patient education and discussions with the primary/consulting team. Thank you Dr Maloney for the opportunity to see this patient in consult today. Please do no t hesitate to call me at any time with questions or concerns. CHAGO REY MD documented in thi s encounter ED Notes Conversion Transaction, Provider Unknown - 03/05/2018 12:53 AM PDTFormatting of this note m ight be different from the original. ED Notes by Sherri Thomas RN at 03/05/1852 Author: Sherri Thomas RN Service: (none) Author Type: Registered Nurse Filed: 03/05/1852 Date of Service: 03/05/1852 Status: Signed Ordinary Seaman: Sherri Thomas RN (Registered Nurse) dietetic assistant at bedside. Sherri Thomas RN 03/05/1852 onver patric Transaction, Provider Unknown - 03/04/2018 11:55 PM PDT ED Notes by Sherri Thomas RN at 03/04/182354 Author: Sherri Thomas RN Service: (none) Author Type: Registered Nurse Filed: 03/04/182355 Date of Service: 03/04/182354 Status: Signed Ordinary Seaman: Sherri Thomas RN (Registered Nurse) Kathy Martinez MD at bedside. Sherri Thomas RN 03/04/182355 Irvin Mina MD - 03/04/2018 9:42 PM PDTFormatting of this note might be different from the orig inal. ED Provider Notes by Irvin Mujica MD at 03/04/182141 Author: Irvin Mujica MD Service: (none) Author Type: Physician Filed: 03/10/18 1430 Date of Service: 03/04/182141 Status: Signed Ordinary Seaman: Irvin Mujica MD (Physician) [facility] Department of Emergency Medicine 9:42 PM History of Present Illness Patient Identification Ramona Oconnor is a 38 y.o. female. Patient information was obtained from patient. History/Exam limitations: none. Patient presented to the Emergency Department by: Car History of Presenting Illness The patient is a 38 y.o. female presenting with Chief Complaint Patient presents with Abdominal Pain pt reports she has had similar pain in the past "when my peritoneum is infected" Emesis Location- abdomen Onset- this morning Duration- ongoing Severity and Character- moderate 6/10 pain Worse with- no exacerbating Better with-no alleviating factors reported Radiation- radiates into the back Denies- headache, vision change, sore throat, cough, chest pain, shortness of breath, diarr hea, constipation, blood in the urine or stool, rash, fever, mood change Admits- nausea, vomiting, abdominal pain Context- Patient reports that she woke up this morning with horrible pain, feeling like she is going to be sick and "flop around like a fish." Patient confirms that she has been seen before in the ED for these symptoms. Patient confirms that she receives peritoneal dialysis and denies any complications. Patient confirms she took half a hydrocodone and promethazine but quickly vomited the pills back up. She is adamant that she does not think she has had a fever PCP: [facility] Specialists: Past Medical History Diagnosis Date Diverticulosis GERD (gastroesophageal reflux disease) Hypercalcemia 09/07/2017 Hyperphosphatemia 10/28/2015 Hypocalcemia 10/28/2015 Itching 10/28/2015 Metabolic acidosis 10/28/2015 Obesity Peritonitis associated with peritoneal dialysis (HCC) 01/24/2017 Uremia 10/28/2015 Past Surgical History Procedure Laterality Date ESOPHAGOGASTRODUODENOSCOPY N/A 09/10/2017 Procedure: ESOPHAGOGASTRODUODENOSCOPY; Surgeon: Beena Peters MD; Location: [facility]; Service: Gastroenterology; Laterality: N/A; PERITONEAL CATHETER INSERTION N/A 10/28/2015 Procedure: LAPAROSCOPIC - PERITONEAL DIALYSIS CATH INSERTION; Surgeon: Mundo Ramos MD; Lo cation: [facility]; Service: Vascular; Laterality: N/A; Prior to Admission medications Medication Sig Start Date End Date Taking? Authorizing Provider ALPRAZolam (XANAX) 0.5 MG tablet Take 0.5 mg by mouth nightly as needed for Sleep. Histo rical Provider amLODIPine (NORVASC) 2.5 MG tablet Take 2.5 mg by mouth daily. Historical Provider ergocalciferol (DRISDOL) 32408 UNITS capsule Take 50,000 Units by mouth [...] MD promethazine (PHENERGAN) 25 MG tablet Take 1 tablet by mouth every 6 (six) hours as needed for Nausea. 09/13/17 Ray Cruz DO sevelamer (RENVELA) 800 MG tablet Take 2 tablets by mouth 3 (three) times daily with meals. 01/25/17 01/25/18 Shad Ba MD No Known Allergies Social History Social History [...] file History reviewed. No pertinent family history. I have personally reviewed the social history, pertinent history has been addressed. Review of Systems Complete review of systems obtained and negative except as stated above in HPI Physical Exam BP 137/81 (BP Location: Left upper arm) | Pulse 84 | Temp 97.3 F (36.3 C) | Resp 22 | Wt 79.9 kg (176 lb 2.4 oz) | SpO2 99% | BMI 32.22 kg/m Pulse Oximetry interpretation: Normal General: Alert, tearful, uncomfortable appearing obese female Head: Normocephalic, atraumatic Eyes: Normal inspection, pupils equal and round and reactive, non-icteric. EOMI ENT: External Ears normal Nose normal Moist mucous membranes Oropharynx clear Neck: Normal inspection Supple Cardiovasc: Rate and rhythm normal No murmurs 2+ pulses all 4 extremities Respiratory: Breath sounds equal bilaterally No rales, wheezing or rhonchi Abdomen: Soft, non-tender, non-distended, obese No guarding or rebound,No peritoneal signs Peritoneal dialysis port is in place, does not appear infected Genitourinary: Deferred Rectal exam: Deferred Back: Normal inspection Extremities: No swelling or redness Skin: Color normal Warm and dry No rash Neuro: Alert, no AMS No gross motor/sensory deficits Moving all extremities Psych: Normal Mood Normal judgement Medical Decision Making and Emergency Department Course ED Department Course 38 y.o. female presents to the ED with a chief complaints of abdominal pain. On exam patie nt has some mild diffuse abdominal tenderness with peritoneal dialysis catheter in place. No significant tenderness indicative of spontaneous bacterial peritonitis I will order labs, t eat symptomatically, and reevaluate the patient. DDx: I considered appendicitis, mesenteric ischemia, musculoskeletal pain, diverticulitis, IBS, IBD, ovarian torsion, TOA, ovarian cyst , PID, SBP, contaminated/infected peritoneal catheter among others in my differential and wo rkup which I discussed with the pt. Review of vitals BP 137/81 (BP Location: Left upper arm) | Pulse 84 | Temp 97.3 F (36.3 C) | Resp 22 | Wt 79.9 kg (176 lb 2.4 oz) | SpO2 99% | BMI 32.22 kg/m I have discussed case with on-call health care provider,Dr. Rey, Nephrology We have revie wed patient's current condition, medical history, and test results. A treatment plan have be en formulated and agreed upon. He says to admit the patient and to treat with antibiotics a fter obtaining fluid if it is contaminated or has elevations in the ANC Dialysis nurse is coming down to obtain fluid 10:33 PM CMP resulted, elevated BUN (33), Creatinine (15) and decreased EFGR (3), consisten t with kidney disease 10:38 PM CBC resulted, WBC elevated at 14.92 10:42 PM Lactic acid is 1.7 11:40 PM I have discussed case with on-call health care provider, Dr Martinez, Hospitalist. We have reviewed patient's current condition, medical history, and test results. A treatment plan have been formulated and agreed upon. Admission obtained. 11:43 PM I updated the patient on exam findings, my clinical impression as well as plan for admission. Patient is agreeable. Records Reviewed Old medical records. Nursing notes. Previous ED visits for similar complaints. Laboratory Evaluation Results Procedure Component Value Ref Range Date/Time FLUID CULT W/GRAM STAIN [[id number]] Collected: 03/07/18 1055 Order Status: Completed Specimen: Body Fluid from Ascites Fluid Updated: 03/10/18 092 2 Specimen Description PERITONEAL FLUID GRAM STAIN WBC'S SEEN GRAM STAIN NO ORGANISMS SEEN GRAM STAIN STAIN PERFORMED ON CYTOSPIN CULTURE NO GROWTH 3 DAYS Lactic acid [[id number]] Collected: 03/04/182154 Order Status: Completed Specimen: Blood Updated: 03/04/182 LACTIC ACID 1.7 0.4 - 2.0 mmol/L CBC with differential [[id number]] (Abnormal) Collected: 03/04/182154 Order Status: Completed Specimen: Blood Updated: 03/04/182237 WBC 14.92 (H) 3.80 - 11.00 K/uL [...] AGREES WITH AUTOMATED RESULTS. Comprehensive metabolic panel [[id number]] (Abnormal) Collected: 03/04/182154 Order Status: Completed Specimen: Blood Updated: 03/04/182232 SODIUM 139 135 - 145 mmol/L POTASSIUM [...] 65 U/L EGFR 3 (L) >60 mL/min/1.73m2 I personally reviewed the lab results and they have been posted to the chart. Pertinent po sitive and negative findings have been addressed appropriately and I have discussed any abno rmal labs with the patient. Radiology and EKG Evaluation Imaging Results None ED Diagnoses Final diagnoses Generalized abdominal pain End-stage renal disease on peritoneal dialysis (HCC) Non-intractable vomiting with nausea, unspecified vomiting type Disposition: ED Disposition ED Disposition Condition Comment Admit/Observation Bed request special needs: dialysis Diagnosis?: abd pain, peritoneal dialysis patient Follow-up Information Follow up With Specialties Details Why Contact Info [facility] In 1 week hospital follow up [address] [place] [address] Discharge Medications: Discharge Medication List as of 03/09/2018 4:09 PM START taking these medications Details HYDROcodone-acetaminophen (NORCO) 5-325 MG per tablet Take 1 tablet by mouth every 6 (six) hours as needed., Starting Fri03/09/2018, Print zolpidem (AMBIEN) 5 MG tablet Take 1 tablet by mouth nightly as needed for Sleep (may repea t once in 1 hr if initial dose not effective)., Starting Fri03/09/2018, Print Procedures Additional Documentation Procedures Attending Provider Note: IIrvin MD personally performed the services described in this documentation, as scribed by Carolina Murhpy in my presence, and it is both accurate and complete. Chart Reviewed and Completed: 03/10/2018 2:27 PM Scribe: Jason Plummer, scribing for and in the presence of Irvin Mujica MD. Signed by: Jason Post 03/05/2018 12:34 AM Irvin Mujica MD 03/10/18 1430 documented in this enco unter Miscellaneous Notes Plan of Care - Conversion Transaction, Provider Unknown - 03/09/2018 1:25 PM PDT Plan of Care by Krystyna Saunders RN at 03/09/18 4636 Author: Krystyna Saunders RN Service: (none) Author Type: Registered Nurse Filed: 03/09/18 4620 Date of Service: 03/09/180 Status: Signed Ordinary Seaman: Krystyna Saunders RN (Registered Nurse) Pain Goal: Patient s [...] within reach. Patient uses call light appropriately. Psychosocial Needs Goal: Patient and family demonstrates the ability to cope with surgery/illness/diagnosis Outcome: Progressing Patient able to verbalize needs appropriately and demonstrates adequate coping skills. Fall Prevention Goal: No Falls during Hospital Stay Outcome: Progressing Maintain bed in low, locked position at all times. Vulcan patient and family to hospital surroundings. Provide non-skid slippers. Call light within reach. Rounding per standard Potential for Compromised Skin Integrity Goal: Outcome: Progressing Provide teaching at level of understanding. Keep skin clean and dry Monitor patient's hygiene practices. Encouraged frequent repositioning every 2 hours and frequent ambulation. lan o f Care - Conversion Transaction, Provider Unknown - 03/09/2018 1:58 AM PDTFormatting of thi s note might be different from the original. Plan of Care by Dorinda Rosenbaum RN at 03/09/18157 Author: Dorinda Rosenbaum RN Service: (none) Author Type: Registered Nurse Filed: 03/09/18157 Date of Service: 03/09/18157 Status: Signed Ordinary Seaman: Dorinda Rosenbaum RN (Registered Nurse) Daily Care Daily care needs are met Progressing Discharge Barriers Patient's discharge needs are met Progressing Pain Patient's pain/discomfort is manageable Progressing Psychosocial Needs Demonstrates ability to cope with hospitalization/illness Progressing Collaborate with patient/family/caregiver to identify patient specific goals for this h ospitalization Progressing Safety Patient will be injury free during hospitalization Progressing Pt is independent in room and calls appropriately if she needs help lan o f Care - Conversion Transaction, Provider Unknown - 03/08/2018 12:57 PM PDTFormatting of thi s note might be different from the original. Plan of Care by Alyce Fonseca RN at 03/08/18 1257 Author: Alyce Fonseca RN Service: (none) Author Type: Registered Nurse Filed: 03/08/18 1257 Date of Service: 03/08/18 1257 Status: Signed Ordinary Seaman: Alyce Fonseca RN (Registered Nurse) Daily Care Daily care needs are met Progressing Pain Patient's pain/discomfort is manageable Progressing Safety Patient will be injury free during hospitalization Progressing Patient more sleepy today but denies pain. Phenergan PO given x 1 for nausea. Hourly roundi ng provided for comfort/safety. Patient calls appropriately. lan o f Care - Conversion Transaction, Provider Unknown - 03/08/2018 2:42 AM PDTFormatting of thi s note might be different from the original. Plan of Care by Dorinda Rosenbaum RN at 03/08/18 0242 Author: Dorinda Rosenbaum RN Service: (none) Author Type: Registered Nurse Filed: 03/08/18 0245 Date of Service: 03/08/18 024 Status: Signed Ordinary Seaman: Dorinda Rosenbaum RN (Registered Nurse) Daily Care Daily care needs are met Progressing Discharge Barriers Patient's discharge needs are met Progressing Pain Patient's pain/discomfort is manageable Progressing spoke with pt about asking for pain meds instead of trying to push through it. She unders tood and now has pain controlled with meds Psychosocial Needs Demonstrates ability to cope with hospitalization/illness Progressing Collaborate with patient/family/caregiver to identify patient specific goals for this h ospitalization Progressing Safety Patient will be injury free during hospitalization Progressing lan o f Care - Conversion Transaction, Provider Unknown - 03/07/2018 10:54 AM PDTFormatting of thi s note might be different from the original. Plan of Care by Alyce Fonseca RN at 03/07/18 1054 Author: Alyce Fonseca RN Service: (none) Author Type: Registered Nurse Filed: 03/07/18 1055 Date of Service: 03/07/18 105 Status: Signed Ordinary Seaman: Alyce Fonseca RN (Registered Nurse) Daily Care Daily care needs are met Progressing Pain Patient's pain/discomfort is manageable Progressing Safety Patient will be injury free during hospitalization Progressing Patient independent in the room and uses call light appropriately. Hourly rounding performe d for comfort. Patient reports pain at acceptable level with current interventions. She repo rts nausea and Zofran and promethazine used with good effects. She still has poor appetite a nd has not been able to eat. lan o f Care - Conversion Transaction, Provider Unknown - 03/07/2018 4:23 AM PDTFormatting of thi s note might be different from the original. Plan of Care by Dorinda Rosenbaum RN at 03/07/18 0423 Author: Dorinda Rosenbaum RN Service: (none) Author Type: Registered Nurse Filed: 03/07/18 0424 Date of Service: 03/07/18 0423 Status: Signed Ordinary Seaman: Dorinda Rosenbaum RN (Registered Nurse) Patient's pain/discomfort is manageable Progressing Pt calls approp when needing pain medication. Meds are keeping pain level at a tolerable r ate Patient will be injury free during hospitalization Progressing lan o f Care - Conversion Transaction, Provider Unknown - 03/06/2018 10:14 AM PDTFormatting of thi s note might be different from the original. Plan of Care by Stepan Verdin RN at 03/06/18 1014 Author: Stepan Verdin RN Service: (none) Author Type: Registered Nurse Filed: 03/06/18 1015 Date of Service: 03/06/18 1014 Status: Signed Ordinary Seaman: Stepan Verdin RN (Registered Nurse) Pain Patient's pain/discomfort is manageable Progressing Safety Patient will be injury free during hospitalization Progressing Pain Goal: Patient s pain/discomfort is manageable [...] Outcome: Progressing Working with ancillary staff and Home Service Consultant to identify discharge barriers and meet patie nt's discharge needs Psychosocial Needs Goal: Patient and family demonstrates the ability to cope with surgery/illness/diagnosis Outcome: Progressing Patient able to verbalize needs appropriately and demonstrates adequate coping skills. Fall Prevention Goal: No Falls during Hospital Stay Outcome: Progressing Maintain bed in low, locked position at all times. Vulcan patient and family to hospital surroundings. Provide [...] 2 hours and frequent ambulation in the [facility] TI. lan o f Care - Conversion Transaction, Provider Unknown - 03/05/2018 9:54 PM PDTFormatting of thi s note might be different from the original. Plan of Care by Daphnie Aaron RN at 03/05/182153 Author: Daphnie Aaron RN Service: (none) Author Type: Registered Nurse Filed: 03/05/182154 Date of Service: 03/05/182153 Status: Signed Ordinary Seaman: Daphnie Aaron RN (Registered Nurse) Patient's pain/discomfort is manageable Progressing Pt encouraged to monitor and report pain. Importance of maintaining pain at a tolerable lev el discussed with pt. Pt verbalizes understanding. Patient will be injury free during hospitalization Progressing Pt is oriented to own abilities. Pt encouraged to call if she needs assistance. Call light within reach. Non skid socks are on. lan o f Care - Conversion Transaction, Provider Unknown - 03/05/2018 12:39 PM PDTFormatting of thi s note might be different from the original. Plan of Care by Stepan Verdin RN at 03/05/181238 Author: Stepan Verdin RN Service: (none) Author Type: Registered Nurse Filed: 03/05/18 1240 Date of Service: 03/05/181238 Status: Signed Ordinary Seaman: Stepan Verdin RN (Registered Nurse) Daily Care Daily care needs are met Progressing Pain Patient's pain/discomfort is manageable Progressing Safety Patient will be injury free during hospitalization Progressing Pain Goal: Patient s pain/discomfort is manageable [...] Outcome: Progressing Working with ancillary staff and Home Service Consultant to identify discharge barriers and meet patie nt's discharge needs Psychosocial Needs Goal: Patient and family demonstrates the ability to cope with surgery/illness/diagnosis Outcome: Progressing Patient able to verbalize needs appropriately and demonstrates adequate coping skills. Fall Prevention Goal: No Falls during Hospital Stay Outcome: Progressing Maintain bed in low, locked position at all times. [place] patient and family to hospital surroundings. Provide [...] [facility] f Care - Conversion Transaction, Provider Unknown - 03/05/2018 3:44 AM PDTFormatting of thi s note might be different from the original. Plan of Care by Daphnie Aaron RN at 03/05/18343 Author: Daphnie Aaron RN Service: (none) Author Type: Registered Nurse Filed: 03/05/18345 Date of Service: 03/05/18343 Status: Signed Ordinary Seaman: Daphnie Aaron RN (Registered Nurse) Patient's pain/discomfort is manageable Progressing Pt encouraged to monitor and report pain. Importance of maintaining pain at a tolerable lev el discussed with pt. Patient will be injury free during hospitalization Progressing Pt oriented to own abilities. Pt encouraged to call RN for any needs. Call light within boni ch, bed in lowest position, and nonskid socks on. docume nted in this encounter Plan of [...] | | | Random | performed at [facility];[address] | | [address] | | | | [address];[place], [place] | | | | | | [address] | | | | + + + [...] | | | | | | at [facility], [address] | | | | | | [address], | | | | | | [place] [address] | | | | + + + [...] | | | | | | at [facility], [address] | | | | | | [address], | | | | | | [place] [address] | | | | + + + [...] | APPEARANCE CLEAR RBC'S | | | <73047 TOTAL NUCLEATED | | | CELLS 9 NEUTROPHILS | | | 53 LYMPHOCYTES | | | 10 MONOCYTES/MACROPHAGES | | | 37 CELLS COUNTED 100 | | | Testing performed at [facility];[address] [facility];[place] [address] | | + + + + +---------+ [...] | | | Basophils | performed at [facility], [address] | [address] | LAB | | | | [address] [facility], | | | | | | [place] [address] | | | | + + + [...] EXTERNAL | | | | performed at [facility], [address] | | LAB | | | | [address], | | | | | | [place] [address] | | | | + + + [...] [address], | | | | | | [place] [address] | | | | + + + [...] + + | Historically converted procedure from [facility] Epic environment | EXTERNAL LAB [...] | | | Basophils | performed at [facility];[address] | [address] | LAB | | | | [address];[place], [place] | | | | | | [address] | | | | + + + [...] EXTERNAL | | | | performed at [facility], [address] | | LAB | | | | [address], | | | | | | [place] [address] | | | | + + + [...] | | | | | | at [facility], [address] | | | | | | [address], | | | | | | [place] [address] | | | | + + + [...] NEGATIVE Testing | | | performed at [facility];[address] [place] [address];[place] [address] | | + + + + +---------+ [...] [place] | | | | | | [address] | | | | + + + [...] EXTERNAL | | | | performed at [facility], [address] | | LAB | | | | [address], | | | | | | [place] [address] | | | | + + + [...] EXTERNAL | | | | performed at [facility], [address] | | LAB | | | | [address], | | | | | | [place] [address] | | | | + + + [...] EXTERNAL | | | | performed at [facility], [address] | | LAB | | | | [address], | | | | | | [place] [address] | | | | + + + [...] | | | | | | at [facility], [address] | | | | | | [address], | | | | | | [place] [address] | | | | + + + [...] 6. Appendix appears normal. | | | STACIA Electronically signed by Lukas Dean MD on Mar 05 2018 | | | 3:51AM Referring Provider Line: [phone] ID: [id number] | | + + + [...] 2018 | | 3:51AM Referring Provider Line: [phone] ID: [id number] | |Pancreas: Normal. | | [...] 05 2018 3:51AM Referring Provider Line: [phone] ID: [id number] | + + Culture, Body [...] | APPEARANCE HAZY RBC'S | | | <89010 TOTAL | | | NUCLEATED CELLS 1685 NEUTROPHILS | | | 56 LYMPHOCYTES | | | 31 MONOCYTES/MACROPHAGES | | | 13 CELLS COUNTED | | | 100 Testing performed at [facility];[address] [facility];[place], [place] | | | [address] | | + + + + +---------+ [...] | | | | performed at [facility];[address] | | | | | | [address];[place], [place] | | | | | | [address] | | | | + + + [...] | | | | performed at [facility];[address] | mmol/L | LAB | | | | [address];[place] | | | | | | [address] | | | | + + + [...] | | | | | at [facility];[address] [place] [address] | | | | | | [facility];[place] [address] | | | | + + + [...]
--- OUTSIDE RECORDS SUMMARY | ~2020-05-11 | XMS | Encounter Summary ---
Demographics + + + | Address | [address] | | | [place] [address] | + + + | Home Phone [...] [place], [place] | | | | | [address] | | + + + + + | Lydia Palm | ECON | [place], [place] | | | | | [address] | | + + + + + | melinda METZ" | ECON | [place], [place] | | | [place]ba | | [address] | | + + + + + | Jose C Oconnor | ECON | [place] | | | | | [place] | | | | | [address] | | + + + + + Care Team Providers + +------+ + | Care Foreign Exchange Trader Name | Role | Phone | + +------+ + | No, Physician | PCP | Unavailable | + +------+ + Reason for Visit +--------+--------+ + | Reason | Onset | Comments | | | Date | | +--------+--------+ + | Other | 07/22/ | | | | 2019 | | +--------+--------+ + Encounter Details +--------+ + + + + | Date | Type | Department | Care Team | Description | +--------+ + + + + | 07/22/ | Telephone | [facility] | Qasim Pederson MD | Other | | 2019 | | VASCULAR SURGERY | [address] | | | | | [address] | [place] [address] [place] | | | | | [place] | [address] | | | | | [address] | | | | | | [phone] | | | +--------+ + + + [...] this encounter Miscellaneous Notes Telephone Encounter - Sherman, Nidhi Bell RN - 07/22/2019 10:27 AM PDTReturn call made to Malena ji, she is currently in a room with a patient, provided direct number for Elisha, will await call back. eninophon e Encounter - [place], Sher Kevin - 07/22/2019 10:04 AM PDTElisha, is calling regarding Other and would like a call back. Additional Call Details: Returning Yesenia's phone call. Requested a call back and stated s he will have her staff pull her from a room for the call. Please call her back at . If this is a symptom based call, was patient offered triage? Not Applicable If this is a symptom based call and you were unable to immediately transfer the call to a garfield sadler packing machine inspector was caller made aware that if at any time she feels it is an emergency they sh ould call 911 or go to the nearest emergency room? not applicable documented in this encounter Plan of Treatment Not on filedocumented as of this encounter Visit Diagnoses Not on filedocumented in this encounter
--- OUTSIDE RECORDS SUMMARY | ~2020-05-11 | XMS | Encounter Summary ---
Demographics + + + | Address | [address] | | | [place] [address] | + + + | Home Phone [...] [place], [place] | | | | | [address] | | + + + + + | Lydia Palm | ECON | [place], [place] | | | | | [address] | | + + + + + | melinda METZ" | ECON | [place], [place] | | | [place] | | [address] | | + + + + + | Jose C Oconnor | ECON | [place] [place] | | | | | [place] | | | | | [address] | | + + + + + Care Team Providers + +------+ + | Care Rn Compliance Name | Role | Phone | + +------+ + | No, Physician | PCP | Unavailable | + +------+ + Reason for Visit + +--------+ + | Reason | Onset | Comments | | | Date | | + +--------+ + | Follow-up | 08/30/ | | | | 2019 | | + +--------+ + Encounter Details +--------+ + + + + | Date | Type | Department | Care Team | Description | +--------+ + + + + | 08/30/ | Telephone | [facility] | Samira Dixon, | Follow-up | | 2018 | | VASCULAR SURGERY | RN | | | | | [address] | | | | | | [place] | | | | | | [address] | | | | | | [phone] | | | +--------+ + + + [...] Telephone Encounter - Samira Dixon RN - 08/30/2019 10:23 AM PDTCalled to schedule alex ent's follow up appt. Called home number, answered but patient is not home. Tried ca lling cell phone number but no answer, left message. documented in this encounter Plan of Treatment Not on filedocumented as of this encounter Visit Diagnoses Not on filedocumented in this encounter
--- OUTSIDE RECORDS SUMMARY | ~2020-05-11 | XMS | Encounter Summary ---
Demographics + + + | Address | [address] | | | [place] [address] | + + + | Home Phone [...] [place], [place] | | | | | [address] | | + + + + + | Lydia Palm | ECON | [place], [place] | | | | | [address] | | + + + + + | melinda METZ" | ECON | [place], [place] | | | [place] | | [address] | | + + + + + | Jose C Oconnor | ECON | [address] [place] | | | | | [place] | | | | | [address] | | + + + + + Care Team Providers + +------+ + | Care Journeyman Machinist Name | Role | Phone | + [...] ([facility]) | [address] | | | | | | Procedures | [place] | | | | | | [place] Lower | [address] | | | | | | Extremity | Phone: | | | | | | Vein Mapping | [phone] | | | | | | Bilat VAS | Fax: | | | | | | Lower | [phone] | | | | | | Extremity [...] | | | | | dialysis | [place] | | | | | | ([facility]) | [address] | | | | | | Procedures | [place] | | | | | | VAS Lower | [address] | | | | | | Extremity | Phone: | | | | | | Vein Mapping | [phone] | | | | | | Bilat VAS | Fax: | | | | | | Lower | [phone] | | | | | | Extremity | | | | | | | Vein Mapping | | | | | | | Right | | | +--------+--------+ + + + + Encounter Details +--------+ + + + + | Date | Type | Department | Care Team | Description | +--------+ + + + + | 12/23/ | Hospital | [facility] | | ESRD on dialysis | | 2020 | Encounter | VASCULAR SURGERY | | (HCC) | | | | ULTRASOUND [address] | | | | | | [place] | | | | | | [address] | | | | | | [phone] | | | +--------+ + + + [...] tablet by | 30 | 0 | 01/11/20 | | | HYDROcodone-acetamin | mouth every [...] tablet by | 14 | 0 | 10/30/20 | | | 8.6 mg tablet | [...] | Endy, Rad Results In - 12/24/2019 7:56 AM PST | | ULTRASOUND [...]
--- OUTSIDE RECORDS SUMMARY | ~2020-05-11 | XMS | Encounter Summary ---
Demographics + + + | Address | [address] | | | [place] [address] | + + + | Home Phone [...] [place], [place] | | | | | [address] | | + + + + + | Lydia Palm | ECON | [place], [place] | | | | | [address] | | + + + + + | melinda METZ" | ECON | [place], [place] | | | [place] | | [address] | | + + + + + | Jose C Oconnor | ECON | [place] [place] | | | | | [place] | | | | | [address] | | + + + + + Care Team Providers + +------+ + | Care Practical Nursing Instructor Name | Role | Phone | [...] | | ([facility]) Wound | | | | [...] + + | 07/08/ | Hospital | [facility] | PoQasim de la rosa MD | ESRD on dialysis | | 2019 | Encounter | [facility] | [address] | ([facility]); Wound | | | | CARE FLOOR [address] | [place], [place] | infection after | | | | [address] | [address] | surgery | | | | [place], [place] | | | | | | [address] | | | | | | [phone] | | | +--------+ + + + [...] chamber of the vacuum Date Last Reviewed: 12/11/201619990540-2724 [employer]. [address] [place] [address], [place] [address]. All righ ts reserved. This information is [...] Anexsia, Lorcet, Lorcet HD, Lorcet Plus, Lortab, [place], Verdrocet, Vicodin, Vi codin ES, Vicodin HP, [...] information carefully each time. Talk to your sanitation lead regarding the use of this medicine in children. Special care may be needed. What side effects may I notice from receiving this medicine? Side effects that you should report to your doctor or health nurse behavioral health care as soon as p ossible: allergic [...] attention (report to your doctor or health nurse behavioral health care if they continue or are bothersome): [...] official disposal site. Contact the [employer] at [phone] or your [facility] government to find a site. [...] this medicine? Tell your doctor or health nurse behavioral health care if your pain does not go [...] pharmacist, or health care provider. Copyright 2019 [employer] Scopolamine skin patches Brand Name: Transderm Scop [...] behind the other ear. Talk to your sanitation lead regarding the use of this medicine in children. Special care may be needed. What side effects may I notice from receiving this medicine? Side effects that you should report to your doctor or health nurse behavioral health care as soon as p ossible: agitation, nervousness, confusion blurred vision and other eye problems dizziness, drowsiness eye pain or redness in the whites of the eye hallucinations pain or difficulty passing urine skin rash, itching vomiting Side effects that usually do not require medical attention (report to your doctor or health nurse behavioral health care if they continue or are bothersome): [...] pharmacist, or health care provider. Copyright 2019 [employer] documented in this encounter Medications at Time [...] might be different from t brant original. [facility] Service: Vascular Surgery PRE-PROCEDURE HISTORY AND PHYSICAL [...] weeks ago. The patient returned to the [facility] for follow up and [...] Peritonitis due to infected peritoneal dialysis catheter ([facility]) (12/08/2018), Range of gabrielle on deficit, Renal insufficiency, Secondary hyperparathyroidism ([facility]), and Uremia (10/28/2015 ). Past Surgical History: Abdomen surgery (10/27/2016); Peritoneal Catheter Placement/Removal (10/28/2015); Upper gas trointestinal endoscopy (09/10/2017); Catheter Removal (02/04/2019); [place] tooth extraction; other surgical history (Left, 03/11/2019); [...] debridement, washout and wound vac placement at [facility] Room on 07/08/2019. Qasim Pederson MD documented in this encou nter Miscellaneous Notes Op Note - Qasim Pederson MD - 07/08/2019 12:59 PM [facility] Service: Vascular Surgery Procedure Note NAME: Ramona Oconnor BILLING #: [id number] MR #: [id number] : 1980 DATE OF PROCEDURE: 07/08/2019 SURGEON: Qasim Pederson MD [place] [employer] POLICE OFFICER: Man Jeronimo PA-C (ARLYN was required to [...] | | 11:32 AM | ([facility]) Wound | | | | [...] [facility] | | | | performed at [facility];[address] | | LABORATORY | | | | [address];[place] | | | | | | [address] | | | | + + + + + + + + | Specimen | + + | Blood | + + + + + + + | Performing | Address | City/State/Zipcode | Phone Number | | Organization | | | | + + + + + | [facility] | [address] | [place] [address] | [phone] | + + + + + documented [...] | | | | | | longer, polasd-lpk-xjagb use of | | | | | [...] | | | | | | | luwmjr-dht-frlud use of at least | | | [...]
--- OUTSIDE RECORDS SUMMARY | ~2020-05-11 | XMS | Encounter Summary ---
Demographics + + + | Address | [address] | | | [place] [address] | + + + | Home Phone [...] [place], [place] | | | | | [address] | | + + + + + | Lydia Palm | ECON | [place], [place] | | | | | [address] | | + + + + + | melinda METZ" | ECON | [place], [place] | | | reba | | [address] | | + + + + + | Jose C Oconnor | ECON | [address] [place] | | | | | [place] | | | | | [address] | | + + + + + Care Team Providers + +------+ + | Care Superannuation Clerk Name | Role | Phone | + +------+ + | Unknown, Physician | PCP | | + +------+ + Reason for Visit + + + | Reason | Comments | + + + | Follow-up | CVC removal | + + + Encounter Details +--------+---------+ + + + | Date | Type | Department | Care Team | Description | +--------+---------+ + + + | 01/31/ | Office | [facility] | Kylie Alves DNP | ESRD (end stage | | 2020 | Visit | VASCULAR SURGERY | [address] | renal disease) on | | | | [address] | [place], [place] | dialysis (HCC) | | | | [place], [place] | [address] | (Primary Dx); | | | | [address] | | Hemodialysis access, | | | | [phone] | | AV graft (HCC) | +--------+---------+ [...] +---------+ + + | Blood Pressure | 107/69 | 02/01/2020 11:34 AM | | | | | PDT | | + +---------+ + + | Pulse | 74 | 02/01/2020 11:34 AM | | | | | PDT | | + +---------+ + + | Temperature | - | - | | + +---------+ + + | Respiratory Rate | - | - | | + +---------+ + + | Oxygen Saturation | 96% [...] documented as of this encounter Patient Instructions Patient Instructions Kylie Alves DNP - 02/01/2020 11:00 AM PDTTunneled Dialysis Catheter Nino richard Discharge Instructions 1. Leave dressing in place for 48 hours. After 48 hours, may remove the dressing and place a band-aid over the site. 2. No showering for 48 hours. No bathing, swimming, hot tubs, etc for 14 days. 3. If you notice any bleeding from site, hold pressure at site for 5 minutes, if it continu es to bleed, go to closest emergency room. 4. Monitor site for swelling, oozing, drainage, redness, and/or warmth. If you notice any of the signs, contact the vascular surgery clinic or go to the closest emergency room. documented in this encounter Progress Notes Kylie Alves DNP - 02/01/2020 11:00 AM [facility]ocated [facility] [address] [place] [address] Office: [phone] DATE OF VISIT: 02/01/2020 PATIENT NAME: Ramona Oconnor : 1980; AGE: 39 y.o.; Sex:F PHONE NUMBER: ; ; PHYSICIAN: Kylie Alves DNP PRIMARY CARE / REFERRING PHYSICIAN: No ref. provider found / Physician Unknown PA / No address on file REASON FOR EVALUATION / CHIEF COMPLAINT: Vascular Surgery Follow Up Visit for right up per chest double lumen tunneled hemodialysis catheter removal PRE-PROCEDURE DIAGNOSIS: ESRD requiring dialysis POST-PROCEDURE DIAGNOSIS: ESRD requiring dialysis PROCEDURE: Removal of right internal jugular vein tunneled hemodialysis catheter ANESTHESIA: Local anesthesia ESTIMATED BLOOD LOSS: Minimal PHYSICIAN: Kylie Alves DNP INDICATION: The patient presents today for a Vascular Surgery Follow Up Visit. The patient is status post right arm AVG creation, which was performed on 01/11/2020. The patient is not h aving any pain. The patient denies fever, wound drainage, increasing redness, pus, increasin g pain, increasing swelling. She has good thrills over the AVG site. The patient has been d ialysis successfully via the AV graft, and the tunneled hemodialysis catheter is to be remov ed today. PROCEDURE IN DETAIL: The patient's right neck and chest regions were prepped and draped scotty bert. Local anesthesia with 1% lidocaine was infiltrated around the tunneled hemodialysis catheter insertion site. Using a hemostat, the insertion site was dilated to remove the adhe patric and to separate the catheter cuff from the surrounding soft tissue. Using sabine press ure, the catheter was pull in a steady fashion and the tunneled hemodialysis catheter was re moved without difficulty. Sabine pressure was applied around the neck and the insertion sit e to achieve hemostasis. Pressure dressing was applied in the usual manner and the patient t olerated the procedure without complications. I was present during the entire procedure. TREATMENT DISPOSITION: Tunneled hemodialysis catheter was successfully removed in the clini c today. Instruction was given to patient to continue using his arteriovenous graft for hemo dialysis. COMPLICATIONS: None POST-PROCEDURE CONDITION: Stable Kylie Alves DNP documented in this encounte r Plan of Treatment Not on filedocumented as of this encounter Visit Diagnoses + + | Diagnosis | + + | ESRD (end stage renal disease) on dialysis (HCC) - Primary End stage renal disease | + + | Hemodialysis access, AV graft ([facility]) | + + documented in this encounter Administered Medications + +--------+ +---------+------+------+ | Medication Order | MAR | Action | Dose | Rate | Site | | | Action | Date | | | | + +--------+ +---------+------+------+ | lidocaine (PF) 1% injection 10 | Given | 02/01/20 | 3.5 mLs | | | | mL 10 mL, Infiltration, ONCE, | | 20 11:59 | | | | | 02/01/20 at 1215, For 1 dose | | AM PDT | | | | + +--------+ +---------+------+------+ +---+---+ | | | +---+---+ documented in this encounter
--- OUTSIDE RECORDS SUMMARY | ~2020-05-11 | XMS | Encounter Summary ---
Demographics + + + | Address | [address] | | | [place] [address] | + + + | Home Phone | | + + + | Preferred Language | Unknown | + + + | Marital Status | | + + + | Church Affiliation | Unknown | + + + | Race | Unknown | + + + | Ethnic Group | Unknown | + + + Author + + + | Author | [facility] | | | and [place] | + + + | Organization | [facility] | | | and [place] | + + + | Address | Unknown | + + + | Phone | Unavailable | + + + Support + + + + + | Name | Relationship | Address | Phone | + + + + + | Lyubov Smalls | ECON | [place], [place] | | | | | [address] | | + + + + + | Lydia Palm | ECON | [place], [place] | | | | | [address] | | + + + + + | melinda METZ" | ECON | [place], [place] | | | reba | | [address] | | + + + + + | Jose C Reeves | ECON | [place] | | | | | [place] | | | | | [phone] | | + + + + + Care Team Providers + +------+ + | Care Carpentry Foreman Name | Role | Phone | + [...] + + + + | 09/03/ | [facility] | [facility] | Lina Longoria, | Postoperative | | 2019 - | Encounter | [facility] [address] | PA-C [address] | infection, | | | | [address] | BLVD [place], [place] | unspecified type, | | 09/08/ | | [place], [place] | [address] | initial encounter | | 2019 | | [phone] | | (Primary Dx); | | | | [phone] | Hilda Haddad, | 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, | | | | | [place] [address] | initial encounter | | | | | [phone] | (HCC); 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 | | | | | Brandin Cortez, | graft, initial | | | | | MD [address] | encounter (HCC); AV | | | | | [place] [address] | graft malfunction, | | | | | [phone] | initial encounter | | | | | | (HCC); Bleeding from | | | | | Herberth Escoto, | dialysis shunt, | | | | | MD [address] | initial encounter | | | | | [place] [address] | (HCC); Abnormal EKG; | | | | | [phone] | ESRD on | | | | | | hemodialysis ([facility]); | | | | | | Anemia in ESRD | | | | | | (end-stage renal | | | | | | disease) ([facility]); | | | | | | Hypertension, [...] be different f rom the original. [facility]: Hospitalist Discharge Summary Date of Admission: [...] AV graft using bovine carotid artery [facility], course complicated by wound dehiscence, underwent wound washout and wound vac placement 05/26/19, Taken back to [place] 07/08/19 due to graft being exposed for another washout and replacement of wound vac, which was eventually removed. Patient was seen in Vascular [facility] clinic 08/24/19 for wound check [...] Follow up: Linden Alonzo MD [address] [place] [id number] Cathie Marroquin MD [address] [facility] [phone] In 2 weeks [facility] [address] [place] [facility] [phone] In 1 week Discharge Medications New Medications [...] Date/Time: 09/08/19 1300 Ride Contact: Name: ROSALBA Transportation Community Support Services Current Outpt/Agency/Support Groups: outpatient hemodialysis (specify) Equipment Durable Medical Equipment Provider: Home Equipment at Discharge: Equipment Used at Home: none Pharmacy Pharmacy/Medication needs: other (see comments)([facility] [place]) Notes: Pt ready for discharge, family to transfer, gas voucher given to Pt family for manuel haskins in transportation needs. Pt has appointment for tomorrow with [facility] [place] at 1430. Pt will see dialysis on Friday to restart and get IV ABX. Electronically signed: Florentino Faye RN 09/08/2019 13:03 Nisha Lucio RN - 09/08/2019 10:51 AM Located within [facility] Service: Wound/Ostomy Care Progress Note [...] Kincaid MD - 09/08/2019 9:40 AM PDT [facility]: NEPHROLOGY Progress Note Ramona Reeves 39 y.o. [id number] 401/401-01 female No Physician on file Hospital [...] 10/25/15 showed normal sized kidneys. 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 Primary lvn lpn GERD (gastroesophageal reflux disease) Hypercalcemia 09/07/2017 Hyperphosphatemia [...] STENTS ; Surgeon: Qasim Pederson MD; [place] [facility] [place] [place] AV FISTULA REPAIR Left 09/03/2019 Procedure: Resection of left arm AV graft with wound vac placement; Surgeon: Lexi Posada; Location: [facility] [place] CATHETER REMOVAL 02/04/2019 Procedure: DIALYSIS CATHETER - REMOVAL; Surgeon: Qasim Pederson MD; Location: [facility] OR ; Service: Vascular; Laterality: N/A; Infected PD catheter removal DEBRIDEMENT Left 07/08/2019 Procedure: LEFT AXILLA WOUND DEBRIDEMENT, WASHOUT AND POSSIBLE WOUND VAC PLACEMENT; Surge on: Qasim Pederson MD; Location: [facility] [place]IN OR OTHER SURGICAL HISTORY Left 03/11/2019 AV FISTULA PLACEMENT - Procedure: AV FISTULA; Surgeon: Qasim Pederson MD; Location: [facility] OR; Service: Vascular; Laterality: Left; OTHER [...] REPLACEMENT; Surgeon : Qasim Pederson MD; Location: [facility] MAIN OR; Service: Vascular; Laterality: Left; PERITONEAL CATHETER PLACEMENT/REMOVAL 10/28/2015 Procedure: LAPAROSCOPIC - PERITONEAL DIALYSIS CATH INSERTION; Surgeon: Mundo Ramos MD; Lo cation: [facility] MAIN OR; Service: Vascular; Laterality: N/A; UPPER GASTROINTESTINAL ENDOSCOPY 09/10/2017 Procedure: ESOPHAGOGASTRODUODENOSCOPY; Surgeon: Beena Peters MD; Location: [facility] ENDOSCOP Y; Service: Gastroenterology; Laterality: N/A; [...] earlier and charting completed later Dictation software, Access Mobile, used which may contain error for similar sounding words even af ter review. Personal communication requested for any clarification. Florentino Ling RN - 09/08/2019 9:30 AM PDTCar e Management Follow-Up Readmission Risk: Medium Current Discharge Plan Anticipated Discharge Disposition: home Expected DC Date: Barriers to Discharge: Steps Taken Toward Discharge: Faxed [facility] and calledNeelima has accepted and schedule appointment for 09/09/2019 @ 1430 Next Steps: d/c Community Support Services Current Outpt/Agency/Support Groups: outpatient hemodialysis (specify) Community Agency Name: [facility] wound clinic Other Resources: Discharge Transportation Transportation [...] Kincaid MD - 09/07/2019 11:35 AM PDT [facility]: NEPHROLOGY Progress Note Ramona Reeves 39 y.o. [id number] 401/401-01 female No Physician on file Hospital [...] 10/25/15 showed normal sized kidneys. 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 Primary lvn lpn GERD (gastroesophageal reflux disease) Hypercalcemia 09/07/2017 Hyperphosphatemia [...] STENTS ; Surgeon: Qasim Pederson MD; [place] [facility] [place] AV FISTULA REPAIR Left 09/03/2019 Procedure: Resection of left arm AV graft with wound vac placement; Surgeon: Lexi Posada; Location: [facility] OR CATHETER REMOVAL 02/04/2019 Procedure: DIALYSIS CATHETER - REMOVAL; Surgeon: Qasim Pederson MD; Location: [facility] MAIN OR ; Service: Vascular; Laterality: N/A; Infected PD catheter removal DEBRIDEMENT Left 07/08/2019 Procedure: LEFT AXILLA WOUND DEBRIDEMENT, WASHOUT AND POSSIBLE WOUND VAC PLACEMENT; Surge on: Qasim Pederson MD; Location: [facility] [place] [place] OTHER SURGICAL HISTORY Left 03/11/2019 AV FISTULA PLACEMENT - Procedure: AV FISTULA; Surgeon: Qasim Pederson MD; [facility]; Service: Vascular; Laterality: Left; [...] REPLACEMENT; Surgeon : Qasim Pederson MD; Location: [facility] MAIN OR; Service: Vascular; Laterality: Left; PERITONEAL CATHETER PLACEMENT/REMOVAL 10/28/2015 Procedure: LAPAROSCOPIC - PERITONEAL DIALYSIS CATH INSERTION; Surgeon: Mundo Ramos MD; Lo cation: [facility] MAIN OR; Service: Vascular; Laterality: N/A; UPPER GASTROINTESTINAL ENDOSCOPY 09/10/2017 Procedure: ESOPHAGOGASTRODUODENOSCOPY; Surgeon: Beena Peters MD; Location: [facility] ENDOSCOP Y; Service: Gastroenterology; Laterality: N/A; [...] earlier and charting completed later Dictation software, Access Mobile, used which may contain error for similar sounding words even af ter review. Personal communication requested for any clarification. Man Jha PA-C - 09/07/2019 9:03 AM PDTFo rmatting of this note might be different from the original. [facility]: Vascular Surgery Progress Note Post-Op Day: [...] 08/26 patient was emergently t ransferred to [facility] for severe bleeding from left [...] CV: No peripheral edema, rate regular SKIN: [place], warm, dry without rash/lesion MS: ROM not [...] Esparza MD - 09/07/2019 8:31 AM PDT [facility] Hospitalist Progress Note Hospital Day: 4 [...] for input(s): IRON, TIBC, PCTSAT, FERRITIN, TSH, [id number], FOLATE in the last 168 hours. No [...] least 50% of time was spent in yhig-tb-ioxa coordination of care and counseling. All questions [...] be written at discharge and faxed to [facility] . Community Support Services Current Outpt/Agency/Support Groups: outpatient hemodialysis (specify) Community Agency Name: Sonia Martin Other Resources: [facility] Discharge Transportation Transportation Needs: none Notes: CM called and followed up on referral sent yesterday. Fly Chan received referral and accepting pending face to face home health order at discharge. ADDENDUM: CM discussed with Pt again on home health, Pt states she would like to continue w ound vac dressing changes at [facility] wound care center and has her own wound vac. She w as getting dressing changes Friday, and Friday. I called the wound clinic and Antonio joshiernesto Dustin wants new wound vac orders in [...] Lindsey RN - 09/06/2019 12:33 PM PDT [facility]: Wound Care NPWT Note Hospital Day: [...] to follow with you. JUJU Saldaña RN [facility] 09/06/19 12:38 Florentino Granados RN - 09/06/2019 11:16 AM PDTCare Management Follow-Up Readmission Risk: Medium Current Discharge Plan Anticipated Discharge Disposition: home Expected DC Date: Barriers to Discharge: Steps Taken Toward Discharge: called Soo mclaughlin for [facility] and notified her o f IV ABX with HD, sent referral to [facility] for wound Vac care. Next Steps: follow-up with home health on acceptance. Community Support Services Current Outpt/Agency/Support Groups: outpatient hemodialysis (specify) Community Agency Name: Other Resources: Discharge Transportation Transportation Needs: none Notes: Called Soo mclaughlin for [facility] and notified her of HD with IV ABX, Soo will fol low. I sent referral to [facility]. CM will follow up with for wound va c. Wound Vac pre-authorization form signed and sent to Teodora mclaughlin for [employer]. Electronically signed: Florentino Faye RN 09/06/2019 11:16 Cathie Saab MD - 09/06/2019 9:45 AM PDTFormatting of this note might be different from the [facility] Service: Infectious Diseases Progress Note [...] intact. Follows commands. LABS: MICRO Culture, Blood [[id number]] Collected: 09/03/192015 Order Status: Completed Specimen: Blood Updated: 09/05/19 0521 Special Requests DIALYSIS PORT Special Requests Testing performed at [facility];[address] [place] [address] RESULT NO GROWTH 2 DAYS RESULT Testing performed at [facility], [address] [place] [address] Comment: Testing performed at [facility], [address] [place] [address] Culture, Tissue, Smear, with Anaerobes [[id number]] (Abnormal) Collected: 09/03/191722 Order Status: Completed Specimen: Tissue from Arm, Left Updated: 09/06/19 0915 Special Requests L ARM Special Requests Testing performed at [facility];[address] [place] [address] Gram Stain Result -- 3+ WBC'S SEEN Gram Stain Result -- 4+ GRAM POSITIVE COCCI Gram Stain Result Testing performed at [facility], [address] [place] [address] RESULT --Abnormal 2+ ENTEROCOCCUS FAECALIS Aminoglycosides (except for high-level resistance testing), cephalosporins, clindamycin, an d trimethoprim-sulfamethoxazole may appear active in vitro but they are not effective clinic ally. Abnormal Susceptibility Enterococcus faecalis (1) Antibiotic Interpretation Vitek 2XL Method Status Ampicillin Sensitive SUSCEPTIBLE CORINNE Preliminary Penicillin G Sensitive SUSCEPTIBLE CORINNE Preliminary Levofloxacin Sensitive SUSCEPTIBLE CORINNE Preliminary Vancomycin Sensitive SUSCEPTIBLE CORINNE Preliminary Testing performed at [facility], [address] [place] [address] Culture, Wound, Smear, w/Anaerobe [[id number]] (Abnormal) Collected: 09/03/19 1627 Order Status: Completed Specimen: Tissue from Arm, Left Updated: 09/06/19 0913 Special Requests LT ARM GRAFT SITE Special Requests Testing performed at [facility];[address] [place] [address] Gram Stain Result WBC'S SEEN Gram Stain Result GRAM POSITIVE COCCI Gram Stain Result STAIN PERFORMED ON CYTOSPIN Gram Stain Result Testing performed at [facility];[address] [place] [address] RESULT --Abnormal 2+ ENTEROCOCCUS FAECALIS Aminoglycosides (except for high-level resistance testing), cephalosporins, clindamycin, an d trimethoprim-sulfamethoxazole may appear active in vitro but they are not effective clinic ally. Abnormal Susceptibility Enterococcus faecalis (1) Antibiotic Interpretation Vitek 2XL Method Status Ampicillin Sensitive SUSCEPTIBLE CORINNE Preliminary Penicillin G Sensitive SUSCEPTIBLE CORINNE Preliminary Levofloxacin Sensitive SUSCEPTIBLE CORINNE Preliminary Vancomycin Sensitive SUSCEPTIBLE CORINNE Preliminary Testing performed at [facility], [address] [place] [address] All labs were reviewed.Data: Recent Results (from [...] with HD ---blood cultures NGTD Dictation software, Access Mobile, used which may contain error for similar sounding words even af ter review. Personal communication requested for any clarification. Portions of this chart may have been copied from previous notes for continuity of care purp sol Marroquin MD Infectious Diseases 09/06/2019 Kaylen Jha PA-C - 09/06/2019 9:36 AM PDTFormatting of this note might be different from the or iginal. [facility]: Vascular Surgery Progress Note Post-Op Day: [...] 08/26 patient was emergently t ransferred to [facility] for severe bleeding from left [...] CV: No peripheral edema, rate regular SKIN: [place], warm, dry without rash/lesion MS: ROM not [...] Full code Man Jeronimo PA-C Vascular Surgery eBrandin morales MD - 09/06/2019 8:04 AM PDT [facility]: Hospitalist Progress Note Pt: Ramona Reeves AGE/SEX: 39 y.o. female ROOM: [facility]/401-01 : 1980 PCP: No Physician on file [...] 09/04/19 0930 87.1 kg (192 lb) 09/03/19 234 87.4 kg (192 lb 10.9 oz) 09/03/192009 [...] rounding focused on the patient. Dictation software, Access Mobile, used which may contain error for similar [...] Kincaid MD - 09/05/2019 5:17 PM PDT [facility]: NEPHROLOGY Progress Note Ramona Reeves 39 y.o. [id number] 401/401-01 female No Physician on file Hospital [...] 10/25/15 showed normal sized kidneys. 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 Primary lvn lpn GERD (gastroesophageal reflux disease) Hypercalcemia 09/07/2017 Hyperphosphatemia [...] STENTS ; Surgeon: Qasim Pederson MD; Location: [facility] [place] [place] AV FISTULA REPAIR Left 09/03/2019 Procedure: Resection of left arm AV graft with wound vac placement; Surgeon: Lexi Posada; Location: [facility] [place] CATHETER REMOVAL 02/04/2019 Procedure: DIALYSIS CATHETER - REMOVAL; Surgeon: Qasim Pederson MD; Location: [facility] MAIN OR ; Service: Vascular; Laterality: N/A; Infected PD catheter removal DEBRIDEMENT Left 07/08/2019 Procedure: LEFT AXILLA WOUND DEBRIDEMENT, WASHOUT AND POSSIBLE WOUND VAC PLACEMENT; Surge on: Qasim Pederson MD; Location: [facility] OR OTHER SURGICAL HISTORY Left 03/11/2019 AV FISTULA PLACEMENT - Procedure: AV FISTULA; Surgeon: Qasim Pederson MD; Location: [facility] OR; Service: Vascular; Laterality: Left; OTHER [...] REPLACEMENT; Surgeon : Qasim Pederson MD; Location: [facility] MAIN OR; Service: Vascular; Laterality: Left; PERITONEAL CATHETER PLACEMENT/REMOVAL 10/28/2015 Procedure: LAPAROSCOPIC - PERITONEAL DIALYSIS CATH INSERTION; Surgeon: Mundo Ramos MD; Lo cation: [facility] MAIN OR; Service: Vascular; Laterality: N/A; UPPER GASTROINTESTINAL ENDOSCOPY 09/10/2017 Procedure: ESOPHAGOGASTRODUODENOSCOPY; Surgeon: Beena Peters MD; Location: [facility] ENDOSCOP Y; Service: Gastroenterology; Laterality: N/A; [...] earlier and charting completed later Dictation software, Access Mobile, used which may contain error for similar sounding words even af ter review. Personal communication requested for any clarification. Christal, Mundo Cantor MD - 09/05/2019 10:39 AM Layne nt seen and evaluated. Left arm wound vac in place and pain controlled. Patient is distrau ght this morning due to bad news she received from home. Plan for dressing change with [facility] care nurse tomorrow. Will continue to follow along with you. Please feel free to call wi th any questions or concerns. Mundo Ramos MD Azalia Saab MD - 09/05/2019 10:34 AM PDTFormatting of this note might be different fro m the original. [facility]: Infectious Diseases Progress Note Hospital Day: [...] intact. Follows commands. LABS: MICRO Culture, Blood [[id number]] Collected: 09/03/192015 Order Status: Completed Specimen: Blood Updated: 09/05/19 0521 Special Requests DIALYSIS PORT Special Requests Testing performed at [facility];[address] [place] [address];[place] [address] RESULT NO GROWTH 2 DAYS RESULT Testing performed at [facility], [address] [place] [address] Comment: Testing performed at [facility], [address] [place] [address] Culture, Tissue, Smear, with Anaerobes [[id number]] Collected: 09/03/19 1723 Order Status: Completed Specimen: Tissue from Arm, Left Updated: 09/04/19 1800 Special Requests L ARM Special Requests Testing performed at [facility];[address] [place] [address] Gram Stain Result -- 3+ WBC'S SEEN Gram Stain Result -- 4+ GRAM POSITIVE COCCI RESULT CULTURE IN PROGRESS RESULT Testing performed at [facility], [address] [place] [address] Comment: Testing performed at [facility], [address] [place] [address] 11759 Culture, Wound, Smear, w/Anaerobe [[id number]] Collected: 09/03/19 1627 Order Status: Completed Specimen: Tissue from Arm, Left Updated: 09/04/19 1758 Special Requests LT ARM GRAFT SITE Special Requests Testing performed at [facility];[address] [place] [address] Gram Stain Result WBC'S SEEN Gram Stain Result GRAM POSITIVE COCCI Gram Stain Result STAIN PERFORMED ON CYTOSPIN Gram Stain Result Testing performed at [facility];[address] [place] [address] RESULT CULTURE IN PROGRESS RESULT Testing performed at [facility], [address] [place] [address] Comment: Testing performed at [facility], [address] [place] [address] All labs were reviewed.Data: Recent Results (from [...] emotional over some bad news Dictation software, Access Mobile, used which may contain error for similar sounding words even af ter review. Personal communication requested for any clarification. Portions of this chart may have been copied from previous notes for continuity of care purp ose Cathie Marroquin MD Infectious Diseases 09/05/2019 Brandin Kennedy MD - 09/05/2019 8:19 AM PDTFormatting of this note might be different from the or iginal. [facility]: Hospitalist Progress Note Pt: Ramona Reeves AGE/SEX: 39 y.o. female ROOM: [address] [place] [address] : 1980 PCP: No Physician on file [...] in coordination of care, seeing and managing hina bakari, review of data, coordination with staff, coordination with involved consultants, and including any scheduled multidisciplinary rounding focused on the patient. Dictation software, Access Mobile, used which may contain error for similar [...] unable to calm down and very emotional, chaplain pepe moy MD notified and 1 mg ativan given IV. Wound vac in place. Chart check complete Azeb Chamorro RN 09/05/19 @6:26 Linden Kincaid MD - 09/04/2019 7:30 PM PDT [facility]: NEPHROLOGY Progress Note Ramona Reeves 39 y.o. [id number] 401/401-01 female No Physician on file Hospital [...] 10/25/15 showed normal sized kidneys. 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 Primary lvn lpn GERD (gastroesophageal reflux disease) Hypercalcemia 09/07/2017 Hyperphosphatemia [...] STENTS ; Surgeon: Qasim Pederson MD; Location: [facility] [place] AV FISTULA REPAIR Left 09/03/2019 Procedure: Resection of left arm AV graft with wound vac placement; Surgeon: Lexi Posada; Location: [facility] [place] CATHETER REMOVAL 02/04/2019 Procedure: DIALYSIS CATHETER - REMOVAL; Surgeon: Qasim Pederson MD; Location: [facility] MAIN OR ; Service: Vascular; Laterality: N/A; Infected PD catheter removal DEBRIDEMENT Left 07/08/2019 Procedure: LEFT AXILLA WOUND DEBRIDEMENT, WASHOUT AND POSSIBLE WOUND VAC PLACEMENT; Surge on: Qasim Pederson MD; Location: [facility] OR OTHER SURGICAL HISTORY Left 03/11/2019 AV FISTULA PLACEMENT - Procedure: AV FISTULA; Surgeon: Qasim Pederson MD; Location: [facility] OR; Service: Vascular; Laterality: Left; OTHER [...] REPLACEMENT; Surgeon : Qasim Pederson MD; Location: [facility] MAIN OR; Service: Vascular; Laterality: Left; PERITONEAL CATHETER PLACEMENT/REMOVAL 10/28/2015 Procedure: LAPAROSCOPIC - PERITONEAL DIALYSIS CATH INSERTION; Surgeon: Mundo Ramos MD; Lo cation: [facility] MAIN OR; Service: Vascular; Laterality: N/A; UPPER GASTROINTESTINAL ENDOSCOPY 09/10/2017 Procedure: ESOPHAGOGASTRODUODENOSCOPY; Surgeon: Beena Peters MD; Location: [facility] END[facility]; Service: Gastroenterology; Laterality: N/A; [...] earlier and charting completed later Dictation software, Access Mobile, used which may contain error for similar [...] might be dif ferent from the original. [facility]: Hospitalist Progress Note Pt: Ramona Reeves AGE/SEX: 39 y.o. female ROOM: 401/401-01 : [...] 09/03/19 2100 141/79 60 18 100 % 09/03/192044 137/81 66 16 100 % 09/03/192029 109/59 74 16 97 % 09/03/192011 129/60 62 18 99 % 09/03/192009 89.5 kg (197 lb 5 oz) 09/03/191957 128/75 36.8 C (98.3 F) Oral 61 18 99 % 09/03/191952 128/75 36.8 C (98.3 F) Oral 57 20 100 % 09/03/19 1935 122/61 62 28 99 % 09/03/19 1930 [...] graft, initial encounter ASSESSMENT & PLAN JAZZY fernándezharesh graft site infection, S/p removal of infected [...] in coordination of care, seeing and managing hina villegas, review of data, coordination with staff, coordination with involved consultants, and including any scheduled multidisciplinary rounding focused on the patient. Dictation software, Access Mobile, used which may contain error for similar sounding words even af ter review. Personal communication requested for any clarification. Portions of this chart may have been copied from previous notes for continuity of care purp ose Mundo Garay MD - 09/04/2019 7:30 AM PDTS/p removal [...] Awaiting final culture and sensitivities for appropriate machine long goods helper antibiotic coverage. Please feel free to call w ith any questions or concerns. Mundo Ramos MD iPanda bell, [facility] - 09/04/2019 12:57 AM PDTFormatting of this note might be different from the o riginal. Clinical Pharmacy Note: Vancomycin Day 1 Referring Provider: Dr. Marorquin Subjective / Objective Ramona Reeves 39 y.o. [...] Procedure Component Value Units Date/Time Culture, Blood [[id number]] Collected: 09/03/192015 Order Status: Sent Lab Status: In process Updated: 09/03/192217 Specimen: Blood Culture, Tissue, Smear, with Anaerobes [[id number]] Collected: 09/03/19 172 Order Status: Completed Lab Status: Preliminary result Updated: 09/03/19 2242 Specimen: Tissue from Arm, Left Special Requests L ARM Special Requests Testing performed at [facility];[address] [place] [address];[place] [address] Gram Stain Result 3+ WBC'S SEEN Gram Stain Result 4+ GRAM POSITIVE COCCI Gram Stain Result Testing performed at [facility], [address] [place] [address] RESULT PENDING Comment: Testing performed at [facility], [address] [place] [id number] Culture, Wound, Smear, w/Anaerobe [[id number]] Collected: 09/03/19 1627 Order Status: Completed Lab Status: Preliminary result Updated: 09/03/19 1834 Specimen: Tissue from Arm, Left Special Requests LT ARM GRAFT SITE Gram Stain Result WBC'S SEEN Gram Stain Result GRAM POSITIVE COCCI Gram Stain Result STAIN PERFORMED ON CYTOSPIN Gram Stain Result Testing performed at [facility];[address] [place] [address];[place] [address] RESULT PENDING Comment: Testing performed at [facility], [address] [place] [address], [place] [address] Labs Component Value Date/Time WBC 13.78 (H) [...] BUSTOS RPH, Pharmacist 09/04/2019 0:47 Gwyn Gan [facility] - 09/04/2019 12:45 AM PDTClinical Pharmacy Note: Renal Monitoring Height: 157.5 cm Weight: 87.4 kg Patient is on hemodialysis - Usual schedule: Fri-Fri-Fri Will order the following dosage adjustments: Metoclopramide 5 mg PO Q4H prn Pharmacy will continue to follow and adjust medications as needed. Thank you. Ryan Bustos PharmJaylon 09/04/2019 0:44 Neal Panda RN - 09/03/2019 3:00 PM PDTInformed MD Ramos of patient potassium 5.5 and Mag 3.2. Electron ically signed by Neal Dietz RN at 09/03/2019 3:01 PM PDTdocumented in this encounter H&P Notes Hilda Haddad, DO - 09/03/2019 1:44 PM PDTFormatting of this note might be different fr om the original. HISTORY AND PHYSICAL Patient Name: Ramona Reeves Date of Admission: 09/03/2019 Referring Provider: Mikey Longoria, [facility] ED Chief Complaint: Left arm pain over [...] requiring wound vac placement. She presented to [facility] on 08/26/19 from wound care clinic for bleeding from the axilla. She was transferred to [facility] and admitted 08/26 for ligation of left [...] 10/25/15 showed normal sized kidneys. 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 Primary lvn lpn GERD (gastroesophageal reflux disease) Hypercalcemia 09/07/2017 Hyperphosphatemia [...] STENTS ; Surgeon: Qasim Pederson MD; [place] [facility] [place] CATHETER REMOVAL 02/04/2019 Procedure: DIALYSIS CATHETER - REMOVAL; Surgeon: Qasim Pederson MD; Location: [facility] MAIN OR ; Service: Vascular; Laterality: N/A; Infected PD catheter removal DEBRIDEMENT Left 07/08/2019 Procedure: LEFT AXILLA WOUND DEBRIDEMENT, WASHOUT AND POSSIBLE WOUND VAC PLACEMENT; Surge on: Qasim Pederson MD; Location: [facility] [place] OTHER SURGICAL HISTORY Left 03/11/2019 [...] REPLACEMENT; Surgeon : Qasim Pederson MD; Location: [facility] MAIN OR; Service: Vascular; Laterality: Left; PERITONEAL CATHETER PLACEMENT/REMOVAL 10/28/2015 Procedure: LAPAROSCOPIC - PERITONEAL DIALYSIS CATH INSERTION; Surgeon: Mundo Ramos MD; Lo cation: [facility] MAIN OR; Service: Vascular; Laterality: N/A; UPPER GASTROINTESTINAL ENDOSCOPY 09/10/2017 Procedure: ESOPHAGOGASTRODUODENOSCOPY; Surgeon: Beena Peters MD; Location: [facility] ENDOSCOP Y; Service: Gastroenterology; Laterality: N/A; WISDOM TOOTH EXTRACTION Medications: Current Facility-Administered Medications on File Prior to Encounter Medication Dose Route Frequency Provider Last Rate Last Dose HYDROcodone-acetaminophen (NORCO) 5-325 mg per tablet 1-2 tablet 1-2 tablet Oral Q4H P MICHELLE Jeronimo PA-C Current Outpatient Medications on File [...] chest pain, orthopnea, palpitations Resp: Negative for sfsjmxkix-wa-jxcwsy, cough, hemoptysis GI: Negative for abdominal pain, [...] might be different from t brant original. [facility] Service: NEPHROLOGY Dialysis Note Ramona Reeves 39 y.o. [id number] female No Physician on file Hospital [...] 10/25/15 showed normal sized kidneys. 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 Primary lvn lpn GERD (gastroesophageal reflux disease) Hypercalcemia 09/07/2017 Hyperphosphatemia [...] STENTS ; Surgeon: Qasim Pederson MD; [place] [facility] [place] AV FISTULA REPAIR Left 09/03/2019 Procedure: Resection of left arm AV graft with wound vac placement; Surgeon: Lexi Posada; Location: [facility] [place] CATHETER REMOVAL 02/04/2019 Procedure: DIALYSIS CATHETER - REMOVAL; Surgeon: Qasmi Pederson MD; Location: [facility] MAIN OR ; Service: Vascular; Laterality: N/A; Infected PD catheter removal DEBRIDEMENT Left 07/08/2019 Procedure: LEFT AXILLA WOUND DEBRIDEMENT, WASHOUT AND POSSIBLE WOUND VAC PLACEMENT; Surge on: Qasim Pederson MD; Location: [facility] [place] OTHER SURGICAL HISTORY Left 03/11/2019 AV FISTULA PLACEMENT - Procedure: AV FISTULA; Surgeon: Qasim Pederson MD; Location: [facility] OR; Service: Vascular; Laterality: Left; OTHER [...] REPLACEMENT; Surgeon : Qasim Pederson MD; Location: [facility] MAIN OR; Service: Vascular; Laterality: Left; PERITONEAL CATHETER PLACEMENT/REMOVAL 10/28/2015 Procedure: LAPAROSCOPIC - PERITONEAL DIALYSIS CATH INSERTION; Surgeon: Mundo Ramos MD; Lo cation: [facility] MAIN OR; Service: Vascular; Laterality: N/A; UPPER GASTROINTESTINAL ENDOSCOPY 09/10/2017 Procedure: ESOPHAGOGASTRODUODENOSCOPY; Surgeon: Beena Peters MD; Location: [facility] ENDOSCOP Y; Service: Gastroenterology; Laterality: N/A; [...] earlier and charting completed later Dictation software, Access Mobile, used which may contain error for similar sounding words even af ter review. Personal communication requested for any clarification. Linden Kincaid MD - 09/03/2019 11:25 PM PDTFormatt ing of this note might be different from the original. [facility] Service: NEPHROLOGY HD Note Ramona Reeves 39 y.o. [id number]/[id number] female No Physician on file Hospital Day: LOS: 0 days 39 y.o.female with PMH ESRD on HD TIW, HTN, Secondary Hyperparathyroidism Presented to [facility] with fever and chills along with swelling / redness at site of Left arm AVG. Nephrology consulted for evaluation and management of ESRD ONSET Chronic severity severe Associated with fluid electrolyte acid base imbalances Assess need for hd/uf Seen and examined on hd with hd rn Pane tolerating hd/ uf well Access functioning well [...] 10/25/15 showed normal sized kidneys. 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 Primary lvn lpn GERD (gastroesophageal reflux disease) Hypercalcemia 09/07/2017 Hyperphosphatemia [...] STENTS ; Surgeon: Qasim Pederson MD; [place] [facility] [place] CATHETER REMOVAL 02/04/2019 Procedure: DIALYSIS CATHETER - REMOVAL; Surgeon: Qasim Pederson MD; Location: [facility] MAIN OR ; Service: Vascular; Laterality: N/A; Infected PD catheter removal DEBRIDEMENT Left 07/08/2019 Procedure: LEFT AXILLA WOUND DEBRIDEMENT, WASHOUT AND POSSIBLE WOUND VAC PLACEMENT; Surge on: Qasim Pederson MD; Location: [facility] [place] OTHER SURGICAL HISTORY Left 03/11/2019 [...] REPLACEMENT; Surgeon : Qasim Pederson MD; Location: [facility] MAIN OR; Service: Vascular; Laterality: Left; PERITONEAL CATHETER PLACEMENT/REMOVAL 10/28/2015 Procedure: LAPAROSCOPIC - PERITONEAL DIALYSIS CATH INSERTION; Surgeon: Mundo Ramos MD; Lo cation: [facility] MAIN OR; Service: Vascular; Laterality: N/A; UPPER GASTROINTESTINAL ENDOSCOPY 09/10/2017 Procedure: ESOPHAGOGASTRODUODENOSCOPY; Surgeon: Beena Peters MD; Location: [facility] ENDOSCOP Y; Service: Gastroenterology; Laterality: N/A; [...] CYTOSPIN Gram Stain Result Testing performed at [facility];[address] [place] [address];[place] [address] RESULT PENDING POC ISTAT, CG8, Arterial Collection [...] L ARM Special Requests Testing performed at [facility];[address];[place] [address] Gram Stain Result 3+ WBC'S SEEN Gram Stain Result 4+ GRAM POSITIVE COCCI Gram Stain Result Testing performed at [facility], [address], [place] [address] RESULT PENDING ECG 12 lead Collection Time: [...] earlier and charting completed later Dictation software, Access Mobile, used which may contain error for similar sounding words even af ter review. Personal communication requested for any clarification. documented in this encounter Consult Notes Cathie Marroquin MD - 09/04/2019 12:50 PM PDTFormatting of this note might be d ifferent from the original. [facility]: Infectious Diseases Initial Consult Note Date [...] 10/25/15 showed normal sized kidneys. 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 Primary lvn lpn GERD (gastroesophageal reflux disease) Hypercalcemia 09/07/2017 Hyperphosphatemia [...] STENTS ; Surgeon: Qasim Pederson MD; [place] [facility] [place] CATHETER REMOVAL 02/04/2019 Procedure: DIALYSIS CATHETER - REMOVAL; Surgeon: Qasim Pederson MD; Location: [facility] MAIN OR ; Service: Vascular; Laterality: N/A; Infected PD catheter removal DEBRIDEMENT Left 07/08/2019 Procedure: LEFT AXILLA WOUND DEBRIDEMENT, WASHOUT AND POSSIBLE WOUND VAC PLACEMENT; Surge on: Qasim Pederson MD; Location: [facility] [place] OTHER SURGICAL HISTORY Left 03/11/2019 AV FISTULA PLACEMENT - Procedure: AV FISTULA; Surgeon: Qasim Pederson MD; Location: [facility] OR; Service: Vascular; Laterality: Left; OTHER [...] REPLACEMENT; Surgeon : Qasim Pederson MD; Location: [facility] MAIN OR; Service: Vascular; Laterality: Left; PERITONEAL CATHETER PLACEMENT/REMOVAL 10/28/2015 Procedure: LAPAROSCOPIC - PERITONEAL DIALYSIS CATH INSERTION; Surgeon: Mundo Ramos MD; Lo cation: [facility] MAIN OR; Service: Vascular; Laterality: N/A; UPPER GASTROINTESTINAL ENDOSCOPY 09/10/2017 Procedure: ESOPHAGOGASTRODUODENOSCOPY; Surgeon: Beena Peters MD; Location: [facility] ENDOSCOP Y; Service: Gastroenterology; Laterality: N/A; [...] EGFR 8 (L) 09/04/2019 MICROBIOLOGY Culture, Blood [[id number]] Collected: 09/03/192015 Order Status: Sent Specimen: Blood Updated: 09/03/192217 Culture, Tissue, Smear, with Anaerobes [[id number]] Collected: 09/03/191722 Order Status: Completed Specimen: Tissue from Arm, Left Updated: 09/03/19 2242 Special Requests L ARM Special Requests Testing performed at [facility];[address] [place] [address];[place] [address] Gram Stain Result -- 3+ WBC'S SEEN Gram Stain Result -- 4+ GRAM POSITIVE COCCI Gram Stain Result Testing performed at L, [address] [place] [address] RESULT PENDING Comment: Testing performed at [facility], [address] [place] [address] Culture, Wound, Smear, w/Anaerobe [[id number]] Collected: 09/03/19 1627 Order Status: Completed Specimen: Tissue from Arm, Left Updated: 09/03/19 9648 Special Requests LT ARM GRAFT SITE Gram Stain Result WBC'S SEEN Gram Stain Result GRAM POSITIVE COCCI Gram Stain Result STAIN PERFORMED ON CYTOSPIN Gram Stain Result Testing performed at [facility];[address] [place] [address];[place] [address] RESULT PENDING Comment: Testing performed at [facility], [address] [place] [address] ASSESSMENT AND RECOMMENDATIONS The patient is a [...] this consultation. Will follow along. Dictation software, Access Mobile, used which may contain error for similar sounding words even af ter review. Personal communication requested for any clarification. Portions of this chart may have been copied from previous notes for continuity of care purp ose Cathie Marroquin MD Infectious Diseases 09/04/2019 Sandhya Lucio RN - 09/04/2019 9:07 AM PDTAssociated Order(s): [facility]: Wound/Ostomy Care Progress Note [...] Kincaid MD - 1 3:41 PM PDT [facility]: NEPHROLOGY CONSULT Note Ramona Reeves 39 y.o. [id number] [facility] [place] INTRA OP POOL/[facility] female No Physician on file Hospital Day: LOS: 0 days Date of Consultation: 09/03/2019 Requesting Physician: ED provider/ Hospitalist Reason for CONSULTATION: ESRD History Obtained From: patient, care team, records HISTORY OF PRESENT ILLNESS 39 y.o.female with PMH ESRD on HD TIW, HTN, Secondary Hyperparathyroidism Presented to [facility] with fever and chills along with swelling / redness at site of Left arm AVG. Patient g ot left arm Bovine AVG on May 06 2019 complicated by non healing wound requiring wound va c, presented to [facility] on 08/26/19 for bleeding from left axilla transferred to [facility] for ligati on of left axillary AVG by Dr Pederson. Since yesterday developing pain and erythema at her left axillary AVG site. Dr Ramos [facility] sx consulted. Patient has R IJ HD [...] 10/25/15 showed normal sized kidneys. 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 Primary lvn lpn GERD (gastroesophageal reflux disease) Hypercalcemia 09/07/2017 Hyperphosphatemia [...] STENTS ; Surgeon: Qasim Pederson MD; [place]: [facility] [place] CATHETER REMOVAL 02/04/2019 Procedure: DIALYSIS CATHETER - REMOVAL; Surgeon: Qasim Pederson MD; Location: [facility] MAIN OR ; Service: Vascular; Laterality: N/A; Infected PD catheter removal DEBRIDEMENT Left 07/08/2019 Procedure: LEFT AXILLA WOUND DEBRIDEMENT, WASHOUT AND POSSIBLE WOUND VAC PLACEMENT; Surge on: Qasim Pederson MD; Location: [facility] [place] OTHER SURGICAL HISTORY Left 03/11/2019 [...] REPLACEMENT; Surgeon : Qasim Pederson MD; Location: [facility] MAIN OR; Service: Vascular; Laterality: Left; PERITONEAL CATHETER PLACEMENT/REMOVAL 10/28/2015 Procedure: LAPAROSCOPIC - PERITONEAL DIALYSIS CATH INSERTION; Surgeon: Mundo Ramos MD; Lo cation: [facility] MAIN OR; Service: Vascular; Laterality: N/A; UPPER GASTROINTESTINAL ENDOSCOPY 09/10/2017 Procedure: ESOPHAGOGASTRODUODENOSCOPY; Surgeon: Beena Peters MD; Location: [facility] ENDOSCOP Y; Service: Gastroenterology; Laterality: N/A; [...] 10-11 Lab Results Component Value Date HGB 11.2 [...] earlier and charting completed later Dictation software, Access Mobile, used which may contain error for similar sounding words even af ter review. Personal communication requested for any clarification. athie Marroquin MD - 09/03/2019 3:3 4 PM PDTPatient in OR. Will see in AM. Received one dose of vanc prior to surgery for postop wound infection. Pharmacy to help renally dose.Electronically signed by Cathie Marroquin MD at 3:34 PM Mundo Garay MD - 09/03/2019 3:03 PM PDTFormatting of [...] on 08/26 patient was emergently transferred to [facility] fo r severe bleeding from left axilla. [...] 10/25/15 showed normal sized kidneys. 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 Primary lvn lpn GERD (gastroesophageal reflux disease) Hypercalcemia 09/07/2017 Hyperphosphatemia [...] STENTS ; Surgeon: Qasim Pederson MD; Location: [facility] [place] CATHETER REMOVAL 02/04/2019 Procedure: DIALYSIS CATHETER - REMOVAL; Surgeon: Qasim Pederson MD; Location: [facility] MAIN OR ; Service: Vascular; Laterality: N/A; Infected PD catheter removal DEBRIDEMENT Left 07/08/2019 Procedure: LEFT AXILLA WOUND DEBRIDEMENT, WASHOUT AND POSSIBLE WOUND VAC PLACEMENT; Surge on: Qasim Pederson MD; Location: [facility] [place] OTHER SURGICAL HISTORY Left 03/11/2019 AV FISTULA PLACEMENT - Procedure: AV FISTULA; Surgeon: Qasim Pederson MD; [facility]; Service: Vascular; Laterality: Left; [...] REPLACEMENT; Surgeon : Qasim Pederson MD; Location: [facility] MAIN OR; Service: Vascular; Laterality: Left; PERITONEAL CATHETER PLACEMENT/REMOVAL 10/28/2015 Procedure: LAPAROSCOPIC - PERITONEAL DIALYSIS CATH INSERTION; Surgeon: Mundo Ramos MD; Lo cation: [facility] MAIN OR; Service: Vascular; Laterality: N/A; UPPER GASTROINTESTINAL ENDOSCOPY 09/10/2017 Procedure: ESOPHAGOGASTRODUODENOSCOPY; Surgeon: Beena Peters MD; Location: [facility] ENDOSCOP Y; Service: Gastroenterology; Laterality: N/A; [...] cancer Maternal Grandmother Paras hypertherm Neg Hx reports that she has quit [...] CV: No peripheral edema, rate regular SKIN: [place], warm, dry without rash/lesion MS: ROM not [...] 09/03/2019 1:34 PM PDTLab phlebo at bedside obertsonRosmery RN - 09/03/2019 1:13 PM PDTNephrologist at bedside Rosmery Yu RN - 09/03/2019 1:13 PM PDTLab called for blood drawElectron ically signed by Rosmery Dunn RN at 09/03/2019 1:13 PM Lina Willett PA-Haresh - 1 12:54 PM PDT [facility] Department of Emergency Medicine No flowsheet data [...] pain to the left axillary region y with progressively worsening course. She is feeling tired but has not had any feve rs or chills. No injury to the arm. No chest pain or shortness of breath. She last got di alysis Friday, is due today but was told to come directly here. NPO since midnight. PCP: No Physician on file Nephrology: cindy Immunization History Administered Date(s) Administered HEP B, [...] 10/25/15 showed normal sized kidneys. 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 Primary lvn lpn GERD (gastroesophageal reflux disease) Hypercalcemia 09/07/2017 Hyperphosphatemia [...] STENTS ; Surgeon: Qasim Pederson MD; Location: [facility] [place] [place] CATHETER REMOVAL 02/04/2019 Procedure: DIALYSIS CATHETER - REMOVAL; Surgeon: Qaism Pederson MD; Location: [facility] MAIN OR ; Service: Vascular; Laterality: N/A; Infected PD catheter removal DEBRIDEMENT Left 07/08/2019 Procedure: LEFT AXILLA WOUND DEBRIDEMENT, WASHOUT AND POSSIBLE WOUND VAC PLACEMENT; Surge on: Qasim Pederson MD; Location: [facility]IN OR OTHER SURGICAL HISTORY Left 03/11/2019 AV FISTULA PLACEMENT - Procedure: AV FISTULA; Surgeon: Qasim Pederson MD; Location: [facility] OR; Service: Vascular; Laterality: Left; OTHER [...] REPLACEMENT; Surgeon : Qasim Pederson MD; Location: [facility] MAIN OR; Service: Vascular; Laterality: Left; PERITONEAL CATHETER PLACEMENT/REMOVAL 10/28/2015 Procedure: LAPAROSCOPIC - PERITONEAL DIALYSIS CATH INSERTION; Surgeon: Mundo Ramos MD; Lo cation: [facility] MAIN OR; Service: Vascular; Laterality: N/A; UPPER GASTROINTESTINAL ENDOSCOPY 09/10/2017 Procedure: ESOPHAGOGASTRODUODENOSCOPY; Surgeon: Beena Peters MD; Location: [facility] ENDOSCOP [facility]; Service: Gastroenterology; Laterality: N/A; [...] Value Ref Range Date/Time Comprehensive Metabolic Panel [[id number]] (Abnormal) Collected: 09/03/19 1332 Order Status: Completed [...] U/L Estimated GFR 5 >60 mL/min/1.73m2 Magnesium [[id number]] (Abnormal) Collected: 09/03/191331 Order Status: Completed Specimen: Blood Updated: 09/03/19 1415 Magnesium 3.2 1.7 - 2.4 mg/dL CBC with Differential [[id number]] (Abnormal) Collected: 09/03/191331 Order Status: Completed Specimen: [...] 2. Infected prosthetic vascular graft, initial encounter ([facility]) 3. Infected prosthetic vascular graft, initial encounter ([facility]) Disposition: ED Disposition ED Disposition Condition Comment Admit Clinical impression: Postoperative infection, unspecified type, initial encounter [[id number]] Clinical impression: Infected prosthetic vascular graft, initial encounter ([facility]) [[id number]] Admitting provider: NATASHA HOSPITALIST [[id number]] Expected patient class: Inpatient [101] Level of [...] Pederson's office. Patient was tr ansferred to [facility] from [facility] last week for a left upper arm rodolfo. Surgery wasn't c ompleted because of bleeding. Had ligation of rodolfo. Called today with redness, pain and warm to the touch of wound. Patient coming after she completes dialysis. documented in this encounter Miscellaneous Notes Op Note - Mundo Ramos MD - 09/10/2019 7:12 AM [facility] OPERATIVE REPORT MUNDO RAMOS MD Patient: RAMONA REEVES Admitting: HILDA HADDAD MR #: [id number] LOC: PT TYPE: Adm Date: 09/03/2019 : [...] the counter incision. SURGEON: Mundo Ramos MD. MUSIC PROFESSIONALS: HINA Leon. ANESTHESIA: General endotracheal anesthesia. ESTIMATED [...] appearing to be melting away from the [place] tissue. Therefore, the basilic vein was harvested [...] appeared to be melting away from the [place] tissue with significant infection. Therefore, an incision [...] 09/10/2019 07:12:32 Transcribed on 09/10/2019 07:41:16 by angelika job# [id number] Confirmation #: [id number] signed by Mundo Ramos MD at 09/10/2019 9:39 AM PDT Plan of Care - Fartun Harris RN - 09/08/2019 2:27 PM PDT Problem: Adult Inpatient Plan of Care Goal: Plan of Care Review Outcome: Ongoing, progressing lan of Ella Marie RN - 09/08/2019 5:07 AM PDTNo blood or hospital-applied restraints. A ll protocols followed. All med parameters checked. All orders released. Chart check done. Pt con't to c/o nausea, despite medicating w/ Zofran- note left for MD. Pt is able to use a lcohol swabs for some relief. Pt remains indep in . VSS, afebrile. No acute issues. Electr onically signed by Ella Hills RN at 09/08/2019 5:07 AM PDTPlan of Ella Zhang RN - 09/08/2019 1:17 AM PDT Problem: Fall Injury Risk Goal: Absence of Fall and Fall-Related Injury Outcome: Ongoing, progressing Pt indep in . Uses call light PRN lan of Vashti [...] at baseline per patient. Zofran IV given NH N. Otherwise tolerating renal diet well. Pain [...] and Integrity Outcome: Ongoing, progressing lan of Samira Palomo RN - 09/06/2019 6:23 PM PDT24 hour chart review complete. lan of [facility] Fareed vianca, Samira Elliott RN - 09/06/2019 9:39 AM PDT Problem: [...] Non-skid socks used for ambulating. lan of [facility] Azeb Gordillo RN - 09/06/2019 6:23 AM PDT Problem: Adult Inpatient Plan of Care Goal: Patient-Specific Goal Outcome: Ongoing, progressing Goal: Optimal Comfort and Wellbeing Outcome: Ongoing, progressing Goal: Rounds/Family Conference Outcome: Ongoing, progressing Problem: Fall Injury Risk Goal: Absence of Fall and Fall-Related Injury Outcome: Ongoing, progressing lan of [facility] Kasrten Chambers RN - 09/05/2019 6:00 PM PDTEnd of shift chart review complete.Electronica lly signed by Karsten Chambers RN at 09/05/2019 6:30 PM PDTPlan of [...] Pharmacy/Medication Needs: other (see comments)(master anderson in [place]) Transportation Needs: none Initial Plan Anticipated Discharge Disposition: home Expected DC Date: yes Steps Taken Toward Discharge: Next Steps: Notes: Pt is very emotional over bad news. Pt will need IV ABX and out pt wound vac. Hue n cath placed for HD with hopes IV ABX will infuse with dialysis . Electronically signed: Ryan Polanco RN 09/05/2019 13:43 lan of Dex - Karsten Chambers RN - 09/05/2019 8:00 [...] and Integrity Outcome: Ongoing, progressing lan of Azeb Lacy RN - 09/05/2019 6:22 AM PDT Problem: [...] Absence of Hospital-Acquired Illness or Injury 09/04/2019 131 by Yasmeen Celmons RN Outcome: Ongoing, progressing 09/04/2019 1319 by Yasmeen Clemons RN Outcome: Ongoing, progressing Goal: Optimal Comfort and Wellbeing 09/04/2019 131 by Yasmeen Clemons RN Outcome: Ongoing, progressing 09/04/2019 131 by Yasmeen Clemons RN Outcome: Ongoing, progressing Goal: Readiness for Transition of Care 09/04/2019 1319 by Yasmeen Clemons RN Outcome: Ongoing, progressing 09/04/2019 1319 by Yasmeen Clemons RN Outcome: Ongoing, progressing Goal: Rounds/Family Conference 09/04/2019 131 by Yasmeen Clemons RN Outcome: Ongoing, progressing 09/04/2019 131 by Yasmeen Clemons RN Outcome: Ongoing, progressing [...] Clemons RN Outcome: Ongoing, progressing lan of [facility] - Crystal Ramirez RN - 09/04/2019 12:37 [...] Ramos MD - 09/03/2019 5:41 PM PDT [facility]: Vascular Surgery Brief Op Note Pre-operative [...] and counter incision Surgeon: Mundo Ramos MD Compliance Associate(s): HINA Leon Anesthesia: General endotracheal anesthesia Estimated Blood Loss: 100 ml Other: IV Fluids: 500 ml Indications: See pre-operative history and physical Findings: After opening axilla, purulent fluid was encountered. The bovine carotid stumps on both the axillary artery and vein were melting away from the [place] tissue. Therefore, basilic vein was harvested and [...] + +--------+ + + + | POC ELIUDJakob, CG8, | Routin | 09/03/2019 | | [...] | | n - | | | 09/03/ | | | 2018 | | | 12:04 | | | [...] C?MRN: | | | | | | [id number] | | | [id number] | | | riteri | | | [...] | | | St. | | | [place] | | | y | | | [...] | | | St. | | | [place] | | | y | | | [...] | | | St. | | | [place] | | | y H. | | [...] | | | St. | | | [place] | | | y H. | | [...] | | | St. | | | [place] | | | y H. | | [...] Testing | 2.3 - 4.8 mg/dL | [facility] | | | | performed at [facility], [address] | | LABORATORY | | | | [address], | | | | | | [place] [address] | | | | + + + + + + + + | Specimen | + + | Blood | + + + + + + + | Performing | Address | City/State/Zipcode | Phone Number | | Organization | | | | + + + + + | [facility] | [address] | [place] [address] | [phone] | + + + + + Magnesium [...] | | | | | [place] [address] | | | | + + + + + + + + | Specimen | + + | Blood | + + + + + + + | Performing | Address | City/State/Zipcode | Phone Number | | Organization | | | | + + + + + | [facility] | [address] | [place] [address] | [phone] | + + + + + Basic [...] | | | | | performed at [facility], [address] | | | | | | [facility], | | | | | | [place] [address] | | | | + + + + + + + + | Specimen | + + | Blood | + + + + + + + | Performing | Address | City/State/Zipcode | Phone Number | | Organization | | | | + + + + + | [facility] | [address] | [place] [address] | [phone] | + + + + + CBC [...] MPV | 8.6Comment: Testing | fl | [facility] | | | | performed at [facility], [address] | | LABORATORY | | | | [address], | | | | | | [place] [address] | | | | + + + + + + + + | Specimen | + + | Blood | + + + + + + + | Performing | Address | City/State/Zipcode | Phone Number | | Organization | | | | + + + + + | [facility] | [address] | [place] [address] | [phone] | + + + + + Phosphorus (09/07/2019 4:31 AM PDT) + + + + + + | Component | Value | Ref Range | Performed | Pathologist | | | | | At | Signature | + + + + + + | Phosphorus | 4.1Comment: Testing | 2.3 - 4.8 mg/dL | [facility] | | | | performed at [facility], [address] | | LABORATORY | | | | [address], | | | | | | [place] [address] | | | | + + + + + + + + | Specimen | + + | Blood | + + + + + + + | Performing | Address | City/State/Zipcode | Phone Number | | Organization | | | | + + + + + | [facility] | [address] | [place] [address] | [phone] | + + + + + Magnesium (09/07/2019 4:31 AM PDT) + + + + + + | Component | Value | Ref Range | Performed | Pathologist | | | | | At | Signature | + + + + + + | Magnesium | 2.5 (H)Comment: Testing | 1.7 - 2.4 mg/dL | [facility] | | | | performed at [facility], [address] | | LABORATORY | | | | [address], | | | | | | [place] [address] | | | | + + + + + + + + | Specimen | + + | Blood | + + + + + + + | Performing | Address | City/State/Zipcode | Phone Number | | Organization | | | | + + + + + | [facility] | [address] | [place] [address] | [phone] | + + + + + Basic [...] | | | | | performed at [facility], [address] | | | | | | [facility], | | | | | | [place] [address] | | | | + + + + + + + + | Specimen | + + | Blood | + + + + + + + | Performing | Address | City/State/Zipcode | Phone Number | | Organization | | | | + + + + + | [facility] | [address] | [place] [address] | [phone] | + + + + + CBC [...] [facility] | | | | performed at [facility], [address] | | LABORATORY | | | | [address], | | | | | | [place] [address] | | | | + + + + + + + + | Specimen | + + | Blood | + + + + + + + | Performing | Address | City/State/Zipcode | Phone Number | | Organization | | | | + + + + + | [facility] | [address] | [place] [address] | [phone] | + + + + + Phosphorus (09/06/2019 5:14 AM PDT) + + + + + + | Component | Value | Ref Range | Performed | Pathologist | | | | | At | Signature | + + + + + + | Phosphorus | 6.3 (H)Comment: Testing | 2.3 - 4.8 mg/dL | [facility] | | | | performed at [facility], [address] | | LABORATORY | | | | [address], | | | | | | [place] [address] | | | | + + + + + + + + | Specimen | + + | Blood | + + + + + + + | Performing | Address | City/State/Zipcode | Phone Number | | Organization | | | | + + + + + | [facility] | [address] | [place] [address] | [phone] | + + + + + Magnesium (09/06/2019 5:14 AM PDT) + + + + + + | Component | Value | Ref Range | Performed | Pathologist | | | | | At | Signature | + + + + + + | Magnesium | 3.2 (H)Comment: Testing | 1.7 - 2.4 mg/dL | [facility] | | | | performed at [facility], [address] | | LABORATORY | | | | [address], | | | | | | [place] [address] | | | | + + + + + + + + | Specimen | + + | Blood | + + + + + + + | Performing | Address | City/State/Zipcode | Phone Number | | Organization | | | | + + + + + | [facility] | [address] | [place] [address] | [phone] | + + + + + Basic [...] | | | | | performed at [facility], [address] | | | | | | [facility], | | | | | | [place] [address] | | | | + + + + + + + + | Specimen | + + | Blood | + + + + + + + | Performing | Address | City/State/Zipcode | Phone Number | | Organization | | | | + + + + + | [facility] | [address] | [place] [address] | [phone] | + + + + + CBC [...] [facility] | | | | performed at [facility], [address] | | LABORATORY | | | | [address], | | | | | | [place] [address] | | | | + + + + + + + + | Specimen | + + | Blood | + + + + + + + | Performing | Address | City/State/Zipcode | Phone Number | | Organization | | | | + + + + + | [facility] | [address] | [place] [address] | [phone] | + + + + + Phosphorus (09/05/2019 5:26 AM PDT) + + + + + + | Component | Value | Ref Range | Performed | Pathologist | | | | | At | Signature | + + + + + + | Phosphorus | 4.8Comment: Testing | 2.3 - 4.8 mg/dL | [facility] | | | | performed at [facility], [address] | | LABORATORY | | | | [address], | | | | | | [place] [address] | | | | + + + + + + + + | Specimen | + + | Blood | + + + + + + + | Performing | Address | City/State/Zipcode | Phone Number | | Organization | | | | + + + + + | [facility] | [address] | [place] [address] | [phone] | + + + + + Magnesium (09/05/2019 5:26 AM PDT) + + + + + + | Component | Value | Ref Range | Performed | Pathologist | | | | | At | Signature | + + + + + + | Magnesium | 3.0 (H)Comment: Testing | 1.7 - 2.4 mg/dL | [facility] | | | | performed at [facility], [address] | | LABORATORY | | | | [address], | | | | | | [place] [address] | | | | + + + + + + + + | Specimen | + + | Blood | + + + + + + + | Performing | Address | City/State/Zipcode | Phone Number | | Organization | | | | + + + + + | [facility] | [address] | [place] [address] | [phone] | + + + + + Basic [...] | | | | | performed at [facility], [address] | | | | | | [address], | | | | | | [place] [address] | | | | + + + + + + + + | Specimen | + + | Blood | + + + + + + + | Performing | Address | City/State/Zipcode | Phone Number | | Organization | | | | + + + + + | [facility] | [address] | [place] [address] | [phone] | + + + + + CBC [...] [facility] | | | | performed at [facility], [address] | | LABORATORY | | | | [address], | | | | | | [place] [address] | | | | + + + + + + + + | Specimen | + + | Blood | + + + + + + + | Performing | Address | City/State/Zipcode | Phone Number | | Organization | | | | + + + + + | [facility] | [address] | [place] [address] | [phone] | + + + + + ECG [...] Testing | 2.3 - 4.8 mg/dL | [facility] | | | | performed at [facility], [address] | | LABORATORY | | | | [facility] [address], | | | | | | [place] [address] | | | | + + + + + + + + | Specimen | + + | Blood | + + + + + + + | Performing | Address | City/State/Zipcode | Phone Number | | Organization | | | | + + + + + | [facility] | [address] | [place] [address] | [phone] | + + + + + Magnesium [...] | | LABORATORY | | | | [address], | | | | | | [place] [address] | | | | + + + + + + + + | Specimen | + + | Blood | + + + + + + + | Performing | Address | City/State/Zipcode | Phone Number | | Organization | | | | + + + + + | [facility] | [address] [facility] | [place] [address] | [phone] | + + + + + Basic [...] | | | | | performed at [facility], [address] | | | | | | [facility], | | | | | | [place] [address] | | | | + + + + + + + + | Specimen | + + | Blood | + + + + + + + | Performing | Address | City/State/Zipcode | Phone Number | | Organization | | | | + + + + + | [facility] | [address] | [place] [address] | [phone] | + + + + + CBC [...] [facility] | | | | performed at [facility], [address] | | LABORATORY | | | | [address], | | | | | | [place] [address] | | | | + + + + + + + + | Specimen | + + | Blood | + + + + + + + | Performing | Address | City/State/Zipcode | Phone Number | | Organization | | | | + + + + + | [facility] | [address] | [place] [address] | [phone] | + + + + + Culture, Blood (09/03/2019 8:16 PM PDT) + + + + + + | Component | Value | Ref Range | Performed | Pathologist | | | | | At | Signature | + + + + + + | Special | DIALYSIS PORT | | [facility] | | | Requests | | | LABORATORY | | + + + + + + | Special | Testing performed at | | [facility] | | | Requests | [facility] | LABORATORY | | | | [address];[place] [address] | | | | + + + + + + | RESULT | NO GROWTH 6 DAYS | | [facility] | | | | | | LABORATORY | | + + + + + + | RESULT | Testing performed at | | [facility] | | | | [facility], [address] [facility] | | LABORATORY | | | | [place] | | | | | | [address]Livkbda: Testing | | | | | | performed at [facility], [address] | | | | | [address] [place] | | | | | | [address] | | | | + + + + + + + + | Specimen | + + | Blood | + + + + + + + | Performing | Address | City/State/Zipcode | Phone Number | | Organization | | | | + + + + + | [facility] | [address] | [place] [address] | [phone] | + + + + + POC [...] | | | POC | performed at [facility];[address] | g/dL | LABORATORY | | | | [address];[place] | | | | | | [address] | | | | + + + + + + + + | Specimen | + + | | + + + + + + + | Performing | Address | City/State/Zipcode | Phone Number | | Organization | | | | + + + + + | [facility] | [address] | [place] [address] | [phone] | + + + + + Culture, Tissue, Smear, with Anaerobes (09/03/2019 5:23 PM PDT) + + + + + + | Component | Value | Ref Range | Performed | Pathologist | | | | | At | Signature | + + + + + + | Special | L ARM | | [facility] | | | Requests | | | LABORATORY | | + + + + + + | Special | Testing performed at | | [facility] | | | Requests | [facility] | | LABORATORY | | | | [address];[place] [address] | | | | + + + [...] | [facility] | | | Result | [facility], [address] | | LABORATORY | | | | [place] | | | | | | [address] | | | | + + + [...] Comment: Testing | | | performed at [facility], | | | [address], | | | [place] [address] | +---+ + + + + + + | Performing | Address | City/State/Zipcode | Phone Number | | Organization | | | | + + + + + | [facility] | [address] | [place] [address] | [phone] | + + + + + POC [...] | | | POC | performed at [facility];[address] | g/dL | LABORATORY | | | | [address];[place] | | | | | | [address] | | | | + + + + + + + + | Specimen | + + | | + + + + + + + | Performing | Address | City/State/Zipcode | Phone Number | | Organization | | | | + + + + + | [facility] | [address] | [place] [address] | [phone] | + + + + + Culture, [...] | | LABORATORY | | | | Blvd;[place] [address] | | | | + + + [...] Stain | Testing performed at | | [facility] | | | Result | [facility] | | LABORATORY | | | | Blvd;[place] [address] | | | | + + + + + + | RESULT | 2+ENTEROCOCCUS | | [facility] | | | | FAECALISAminoglycosides | | [...] Comment: Testing | | | performed at [facility], | | | [address], | | | [place] [address] | +---+ + + + + + + | Performing | Address | City/State/Zipcode | Phone Number | | Organization | | | | + + + + + | [facility] | [address] | [place] [address] | [phone] | + + + + + , Serum, Qual (09/03/2019 3:11 PM PDT) + + + + + + | Component | Value | Ref Range | Performed | Pathologist | | | | | At | Signature | + + + + + + | Preg, Serum | NEGATIVEComment: Testing | NEG | [facility] | | | | performed at [facility];[address] | | LABORATORY | | | | [address];[place], [place] | | | | | | [address] | | | | + + + + + + + + | Specimen | + + | Blood | + + + + + + + | Performing | Address | City/State/Zipcode | Phone Number | | Organization | | | | + + + + + | [facility] | [address] | [place] [address] | [phone] | + + + + + ECG [...] | | | | | ONLY, -COMPUTER (191), | | | | | | map editor Jimi King | | | [...] [facility] | | | | performed at [facility];[address] | | LABORATORY | | | | [address];[place], [place] | | | | | | [address] | | | | + + + + + + + + | Specimen | + + | Blood | + + + + + + + | Performing | Address | City/State/Zipcode | Phone Number | | Organization | | | | + + + + + | [facility] | [address] | [place] [address] | [phone] | + + + + + Comprehensive [...] 5 (L)Comment: GFR <60: | >60 | [facility] | | | GFR | CHRONIC [...] | | | | | performed at [facility] | | | | | | [address];[place], [place] | | | | | | [address] | | | | + + + + + + + + | Specimen | + + | Blood | + + + + + + + | Performing | Address | City/State/Zipcode | Phone Number | | Organization | | | | + + + + + | [facility] | [address] | [place] [address] | [phone] | + + + + + CBC [...] Comment | SLIDE SCANNED, AGREES | | [facility] | | | | WITH AUTOMATED | | LABORATORY | | | | RESULTS.Comment: Testing | | | | | | performed at [facility];[address] | | | | | | [address];[place] | | | | | | [address] | | | | + + + + + + + + | Specimen | + + | Blood | + + + + + + + | Performing | Address | City/State/Zipcode | Phone Number | | Organization | | | | + + + + + | [facility] | [address] | [place] [address] | [phone] | + + + + + documented in this encounter Visit Diagnoses + + | Diagnosis | + + | Infected prosthetic vascular graft, initial encounter (HCC) - Primary | + + | Postoperative infection, unspecified type, initial encounter | + + | AV graft malfunction, initial encounter (HCC) | + + | Bleeding from dialysis shunt, initial encounter (HCC) | + + | Abnormal EKG Nonspecific [...] | | | | | | longer, ugtdtq-vdg-pglps use of | | | | | [...] | | | | | | | hvjqnv-cez-llsnk use of at least | | | [...] +-------+ +--------+---+---+ | Given | 09/03/20 | 0.5 mg [...] | | | | | 09/03/19 at 8, Use if | | | | | [...] mg | | | | Intravenous, ONCE, 09/03/19 | | 19 1:17 | | | | | at 1300, For 1 dose | | PM PDT | | | | + +-------+ +------+---+---+ +---+---+ | | | +---+---+ + +-------+ +------+---+---+ | ondansetron (ZOFRAN) 2 mg/mL | Given | 09/03/20 | 4 mg | | | | injection Starting 09/03/19 | | 19 1:23 | | | [...]
--- OUTSIDE RECORDS SUMMARY | ~2020-05-11 | XMS | Encounter Summary ---
Demographics + + + | Address | [address] | | | [place] [address] | + + + | Home Phone [...] [place], [place] | | | | | [address] | | + + + + + | Lydia Palm | ECON | [place], [place] | | | | | [address] | | + + + + + | melinda METZ" | ECON | [place], [place] | | | [place] | | [address] | | + + + + + | Jose C Oconnor | ECON | [place] | | | | | [place] | | | | | [address] | | + + + + + Care Team Providers + +------+ + | Care Restaurant Maintenance Technician Name | Role | Phone [...] [address] [place] | [place] [address] | | | | | [address] | [phone] | | | | | [address] | | | | | | [phone] | | | +--------+ + + + [...] Notes Telephone Encounter - Liz Ingram - 08/20/2018 6:29 PM PDTReferral intake questionnaire Left message with regarding referral intake questionnaire, asking patient to return my call. documented in this encounter Plan of Treatment Not on filedocumented as of this encounter Visit Diagnoses Not on filedocumented in this encounter
--- OUTSIDE RECORDS SUMMARY | ~2020-05-11 | XMS | Encounter Summary ---
Demographics + + + | Address | [address] | | | [place] [address] | + + + | Home Phone | | + + + | Preferred Language | Unknown | + + + | Marital Status | | + + + | Congregation Affiliation | Unknown | + + + | Race | Unknown | + + + | Ethnic Group | Unknown | + + + Author + + + | Author | [facility] | | | and [place] | + + + | Organization | [facility] | | | and [place] | + + + | Address | Unknown | + + + | Phone | Unavailable | + + + Support + + + + + | Name | Relationship | Address | Phone | + + + + + | Lyubov Smalls | ECON | [place], [place] | | | | | [address] | | + + + + + | Lydia Palm | ECON | [place], [place] | | | | | [address] | | + + + + + | melinda METZ" | ECON | [place], [place] | | | [place] | | [address] | | + + + + + | Jose C Oconnor | ECON | [place] | | | | | [place] | | | | | [address] | | + + + + + Care Team Providers + +------+ + | Care Erection Shop Supervisor Name | Role | Phone | [...] [facility] | | | | | | ([facility]) | [address] | | | | | | Procedures | [place] | | | | | | [place] | [address] | | | | | | Mapping For | Phone: | | | | | | Dialysis | [phone] | | | | | | Right | Fax: | | | | | | | [phone] | | +--------+--------+ + + + + [...] [facility] | | | | | | (HCC) | [address] | | | | | | Procedures | [place] | | | | | | [place] | [address] | | | | | | Mapping For | Phone: | | | | | | Dialysis | [phone] | | | | | | Right | Fax: | | | | | | | [phone] | | +--------+--------+ + + + + Encounter Details +--------+ + + + + | Date | Type | Department | Care Team | Description | +--------+ + + + + | 12/23/ | Hospital | [facility] | | ESRD on dialysis | | 2020 | Encounter | VASCULAR SURGERY | | (HCC) | | | | ULTRASOUND [address] | | | | | | [address] | | | | | | [place] | | | | | | [address] | | | | | | [phone] | | | +--------+ + + + [...] Note | + + | Migue Schumacher Results In - 12/24/2019 9:12 AM PST | | DIALYSIS [...]
--- OUTSIDE RECORDS SUMMARY | ~2020-05-11 | XMS | Encounter Summary ---
Demographics + + + | Address | [address] | | | [place] [address] | + + + | Home Phone | | + + + | Preferred Language | Unknown | + + + | Marital Status | | + + + | Yarsanism Affiliation | Unknown | + + + | Race | Unknown | + + + | Ethnic Group | Unknown | + + + Author + + + | Author | [facility] | | | and [place] | + + + | Organization | [facility] | | | and [place] | + + + | Address | Unknown | + + + | Phone | Unavailable | + + + Support + + + + + | Name | Relationship | Address | Phone | + + + + + | Lyubov Smalls | ECON | [place], [place] | | | | | [address] | | + + + + + | Lydia Palm | ECON | [place], [place] | | | | | [address] | | + + + + + | melinda METZ" | ECON | [place], [place] | | | reba | | [address] | | + + + + + | Jose C Oconnor | ECON | [address] | | | | | [place] | | | | | [address] | | + + + + + Care Team Providers + +------+ + | Care Supervisor Drying And Winding Name | Role | Phone | + [...] | | | | | | | ([facility]) | | | | | | [...] + + | 01/10/ | Anesthesia | [facility] | Nat Smalls MD | | | 2020 | [facility] | [address] | | | | | [address]PER[address] | [place] [address] | | | | | [facility] | [phone] | | | | | [place], [place] | | | | | | [address] | | | | | | [phone] | | | +--------+ + + + [...] +----+---+ + + | | 1 | [place] | | | | 0 | 43-degrees [...] by | | | | arm | Marlnee Ledezma RN | | +--------+ + + [...] 01/11/20 1354 by | | eral | [id number]-bsy-wytkec catheter system; | Alyce Morales RN | [...] encounter [place] Notes Anesthesia Postprocedure Evaluation - Nat Smalls MD - 01/11/2020 12:23 PM Maile lazaro of this note might be different from the original. ANESTHESIA POSTANESTHESIA EVALUATION Ramona Oconnor 39 y.o. female 1980 [id number] Procedure(s) AV GRAFT CREATION (Right ) Cooperates? Yes Mental Status Answers questions appropriately. and Performs simple tasks. Respiratory Satisfactory - Airway patent (self maintained). Cardiovascular Satisfactory - Blood pressure and heart rate acceptable Temperature Satisfactory Pain Satisfactory N/V Control Satisfactory Hydration Satisfactory - No signs of dehydration Adverse Events ADVERSE EVENTS: No adverse events Vitals Value Taken Time Temp 36.6 C (97.8 F) 01/11/2020 11:44 AM Pulse 73 01/11/2020 12:20 PM Resp 14 01/11/2020 12:20 PM BP 110/61 01/11/2020 12:20 PM Arterial Line BP Arterial Line BP 2 SpO2 94 % 01/11/2020 12:20 PM Vitals shown include unvalidated device data. Electronically signed by Nat Smalls MD 01/11/2020 12:23 PM [facility] nesthesia Procedure Notes - Nat Smalls MD - 01/11/2020 10:33 AM PSTAssocia medina Order(s): Anesthesia Airway NoteAnesthesia Airway Placement 01/11/2020 10:20 AM Preprocedure check: patient identified, airway equipment checked, patient reassessment prio r to induction, airway assessed, oxygen and suction Mask ventilation: N/A Attempts: 1 Airway type: laryngeal mask Size: 4 Cuffed: cuffed Route, reference point: center of mouth Tube secured with: adhesive tape Trauma: none Tube placement verification: bilateral chest rise and carbon dioxide detection Performing provider: Nat Smalls MD Authorizing provider: Nat Smalls MD Please see intraoperative grid for any additional medication documentation. nesthesia Preprocedur e Evaluation - Nat Smalls MD - 01/11/2020 10:03 AM PST ANESTHESIA PREANESTHESIA EVALUATION Ramona Oconnor 39 y.o. female 1980 [id number] Procedure(s): AV GRAFT CREATION (Right ) Medical,anesthesia, drug, allergy histories reviewed, NPO status verified. ECG reviewed. Labs reviewed. (-) perioperative beta-nano/statin not given/taken, reason : not applicable/Not taking Beta-Nano. Review of Systems / Med History Anesthesia History No anesthesia complications except where noted below. Family Anesthesia History Family Anesthesia Negative except where noted below. Cardiovascular Negative except where noted below. (+) hypertension and essential . Pulmonary Negative except where noted below. Gastrointestinal/Hepatic (+) acid reflux and well controlled. Renal (+) end-stage renal disease. (+) hemodialysis dialysis type. Last dialysis: yesterday. Last K+: 5.9. Endocrine (+) obesity: Hematology/Other Negative except where noted below. Cancer Negative except where noted below. Neuromuscular (+) chronic pain. Psychology Negative except where noted below. Physical Exam Airway MP I, TM >3 FB, Mouth opening >2 FB. Neck: full ROM, extends >30 degrees. Jaw protrusi on normal. Dental grossly normal except where noted below. (+) missing teeth. CV cardiovascular normal Rhythm regular. Rate normal. Pulm Clear to auscultation bilaterally. Neuro grossly normal. Anesthesia Plan ASA: 3 Type: General. Induction: Intravenous. Potential problems: None anticipated. Monitors: Standard ASA monitors. Postop Pain Management: Consent statement: Anesthetic plan, alternatives, risks and benefits discussed with patient and mother. discus sed risks to teeth Consenting person understands and agrees to proceed. Electronically Signed by: Nat Smalls MD ESig date/time: 01/11/2020 10:03 AM documented in this enc ounter Miscellaneous Notes Anesthesia Post-op Handoff - Nat Smalls MD - 01/11/2020 11:48 AM PST ANESTHESIA HANDOFF NOTE Ramona Oconnor 39 y.o. female 1980 [id number] AV GRAFT CREATION (Right ) HANDOFF NOTE Handoff Protocol Used: post-procedure handoff [...] to anesthesia start t o PACU discharge The significant anesthesia concerns and VS in Epic were reviewed with the receiving team. Nat Smalls MD 01/11/2020 11:48 AM [facility] documented in this encounter Plan of [...] Intravenous, PRN, Starting Tue | | 20 11:15 | | | [...]
--- OUTSIDE RECORDS SUMMARY | ~2020-05-11 | XMS | Encounter Summary ---
Demographics + + + | Address | [address] | | | [place] [address] | + + + | Home Phone [...] [place], [place] | | | | | [address] | | + + + + + | Lydia Palm | ECON | [place], [place] | | | | | [address] | | + + + + + | melinda METZ" | ECON | [place], [place] | | | [place] | | [address] | | + + + + + | Jose C Oconnor | ECON | [address] | | | | | [place] | | | | | [address] | | + + + + + Care Team Providers + +------+ + | Care Malted Milk Masher Name | Role | Phone | + [...] daily thru | [address] | [place] [address] | | | | | February 23, | [place], [place] | Phone: | | | | | Peritonitis | [address] | [phone] | | | | | Procedures | Phone: | Fax: | | | | | [place] | [phone] | [phone] | | | | | [place], | Fax: | | | | | | [address] [place] | [phone] | | | | | | IV [...] + + | 02/21/ | Hospital | [facility] | Unknown, | Peritonitis | | 2019 | Encounter | [facility] | MD Iris Kinney | associated with | | | | [address] | [phone] | peritoneal dialysis, | | | | [place] | | initial encounter | | | | [address] | | (HCC) (Primary Dx) | | | | [phone] | | | +--------+ + + + [...] signed by: Gifty Diaz RN 02/21/2019 18:26 ifty iDaz RN - 019 5:09 PM PDT Vitals: [...]
--- OUTSIDE RECORDS SUMMARY | ~2020-05-11 | XMS | Encounter Summary ---
Demographics + + + | Address | [address] | | | [place] [address] | + + + | Home Phone [...] [place], [place] | | | | | [address] | | + + + + + | Lydia Palm | ECON | [place], [place] | | | | | [address] | | + + + + + | mleinda METZ" | ECON | [place], [place] | | | [place] | | [address] | | + + + + + | Jose C Oconnor | ECON | [address] | | | | | [place] | | | | | [address] | | + + + + + Care Team Providers + +------+ + | Care Vending Route Driver Name | Role | Phone | [...] + + | 09/28/ | Office | [facility] | Man Jeronimo, | Infection of | | 2019 | Visit | VASCULAR SURGERY | PA-C [address] | arteriovenous | | | | [address] | [address] ARIAS E AGUSTÍN, | dialysis fistula, | | | | E AGUSTÍN, [place] | [place] [address] | subsequent encounter | | | | [address] | [phone] | (Primary Dx) | | | | [phone] | | | +--------+---------+ + + + [...] this encounter Progress Man Iyer PA-C - 09/28/2019 1:00 PM [facility] [address] [place] [address] [place] [address] Office: [phone] DATE OF VISIT: 09/28/2019 PATIENT NAME: Ramona [...] history of HTN and ESRDwho presented to [facility] ED with fever and chills with [...] 08/26 patient was emerg ently transferred to [facility] for severe bleeding from left axilla. She [...] CV: No peripheral edema, rate regular SKIN: Freeburn, warm, dry without rash/lesion MS: ROM not limited, no digital cyanosis, normal gait NEURO: Conversant, A&O times 3 PSYCH: appropriate affect, speech and tone, judgement and insight intact Vascular:Wound vac holding suction in left axilla. Wound vac removed and wound shows go od granulation tissue, 1.5 cm x 1.5 cm x 0.2 cm. Distal wound is nearly healed. Jose Cruz in p lace and were removed. Distal [...] of multiple surgeries in that area. Her jose cruz were removed and her incision line is healing well. Wound vac for one more week, follow up in two weeks. We had a discussion regarding her future AV access, which she would like to discuss at her next appt. She will likely need a graft placement in her right arm. Liu Brocktronically signed by Man Jeronimo PA-C at 09/28/2019 1:31 PM PS Tdocumented in this encounter Plan of Treatment Not on filedocumented as of this encounter Visit Diagnoses + + | Diagnosis | + + | Infection of arteriovenous dialysis fistula, subsequent encounter - Primary | + + documented in this encounter
--- OUTSIDE RECORDS SUMMARY | ~2020-05-11 | XMS | Encounter Summary ---
Demographics + + + | Address | [address] | | | [place] [address] | + + + | Home Phone [...] [place], [place] | | | | | [address] | | + + + + + | Lydia Palm | ECON | [place], [place] | | | | | [address] | | + + + + + | melinda METZ" | ECON | [place], [place] | | | [place] | | [address] | | + + + + + | Jose C Oconnor | ECON | [address] | | | | | [place] | | | | | [address] | | + + + + + Care Team Providers + +------+ + | Care Vocational Guidance Counselor Name | Role | Phone | + [...] | daily thru | [address] | [place] [address] | | | | | February 23, | [place], [place] | Phone: | | | | | Peritonitis | [address] | [phone] | | | | | Procedures | Phone: | Fax: | | | | | [place] | [phone] | [phone] | | | | | [place], | Fax: | | | | | | [address] [place] | [phone] | | | | | | IV [...] + + | 02/23/ | Hospital | [facility] | Unknown, | Peritonitis | | 2019 | Encounter | [facility] | MD Iris Kinney | associated with | | | | [address] | [phone] | peritoneal dialysis, | | | | [place] | | initial encounter | | | | [address] | | (HCC) (Primary Dx) | | | | [phone] | | | +--------+ + + + [...] m the original. Vitals: 02/23/19 1721 02/23/19 1748 BP: 121/66 119/78 Pulse: 82 83 Resp: [...] signed by: Brandin Gray RN 02/23/2019 17:55 cCoBrandin fleming RN - 02/23/2019 5:11 PM PDT Vitals: [...]
--- OUTSIDE RECORDS SUMMARY | ~2020-05-11 | XMS | Encounter Summary ---
Demographics + + + | Address | [address] | | | [place] [address] | + + + | Home Phone [...] [place], [place] | | | | | [address] | | + + + + + | Lydia Palm | ECON | [place], [place] | | | | | [address] | | + + + + + | melinda METZ" | ECON | [place], [place] | | | reba | | [address] | | + + + + + | Jose C Oconnor | ECON | [place] | | | | | [place] | | | | | [phone] | | + + + + + Care Team Providers + +------+ + | Care Blade Grinder Name | Role | Phone | + +------+ + | Juan F Whitley DO | PCP | | + +------+ + Encounter Details +--------+ + + + + | Date | Type | Department | Care Team | Description | +--------+ + + + + | 04/02/ | Hospital | [facility] | Elis JayDO | Nausea vomiting and | | 2019 - | Encounter | [facility] | [address] | diarrhea; ESRD on | | | | CARE FLO[address] | [place] [address] | hemodialysis (HCC); | | 04/04/ | | [address] | [phone] | Hyperkalemia; | | 2018 | | [place], [place] | | Leukocytosis, | | | | [address] | | unspecified type | | | | [phone] | | | +--------+ + + + [...] 0844 Date of Service: 04/04/19839 Status: Signed Beverage Specialist: Roque Wyatt DO (Physician) [facility] Service: Hospitalist Discharge Summary Date of Admission: [...] Code Follow up: [place] [address] [place] [address] Medication List CONTINUE taking these medications LORazepam [...] Service: (none) Author Type: Registered Nurse Filed: 04/04/1949 Date of Service: 04/04/19946 Status: Signed Beverage Specialist: Francie Andrews RN (Registered Nurse) Discharge instructions provided to patient. All questions addressed and answered at this ti me. Peripheral IV removed. Patient wheeled out to front entrance to discharge by private veh icle. Francie Andrews RN onver patric Transaction, Provider Unknown - 04/04/2019 7:54 AM PDT Nurse Progress Note by Deanne Jaimes RN at 04/04/19 0754 Author: Deanne Jaimes RN Service: (none) Author Type: Registered Nurse Filed: 04/04/19 0758 Date of Service: 04/04/19753 Status: Signed Beverage Specialist: Deanne Jaimes RN (Registered Nurse) Ramona is [...] Progress Notes by Roque Wyatt DO at 04/03/191315 Author: Roque Wyatt DO Service: Hospitalist Author Type: Physician Filed: 04/03/191317 Date of Service: 04/03/191315 Status: Signed Beverage Specialist: Roque Wyatt DO (Physician) PROGRESS NOTE 04/03/2019 [...] 04/03/1914 Date of Service: 04/03/19607 Status: Signed Beverage Specialist: Salome Garcia RN (Registered Nurse) Pt admitted [...] 04/02/2019 10:12 PM PDT Progress Notes by Minevra Cruz RPH at 04/02/192211 Author: Minerva Cruz RPH Service: Pharmacy Author Type: Pharmacist Filed: 04/02/192211 Date of Service: 04/02/192211 Status: Signed Beverage Specialist: Minerva Cruz RPH (Pharmacist) Clinical Pharmacy Note: Renal Monitoring Serum creatinine: 9.19 mg/dL (H) 04/02/19 1244 Estimated creatinine clearance: 7.9 mL/min (A) Pharmacy dosing for renal function per Dr. Gillis Currently there are no medications needing to be adjusted. Pharmacy will continue to monito r for changes in medication orders and in renal function and adjust accordingly. Bridgett Rizo 04/02/2019 10:11 PM docume nted in this encounter H&P Notes Jay Gillis, - 04/02/2019 9:21 PM PDTFormatting of this note might be different from th e original. H&P by Jay Gillis DO at 04/02/192120 Author: Jay Gillis DO Service: Hospitalist Author Type: Physician Filed: 04/02/192140 Date of Service: 04/02/192120 Status: Signed Beverage Specialist: Jay Gillis DO (Physician) [facility] Service: Hospitalist Admission History & Physical Pt: Ramona Oconnor AGE/SEX: 39 y.o. female ROOM: [address] [place] [address] PCP: JUAN F WHITLEY : 1980 TODAY'S DATE: 04/02/2019 Date of Admission: 04/02/2019 Chief Complaint: Nausea, vomiting abdominal pain and diarrhea. History of Present Illness: The patient is a 39 y.o. female with significant past medical history of ESRD who presents with acute onset n/v with diarrhea. Patient reports that she was in her normal state of heal th last night, but woke up this morning with n/v and diarrhea. The n/v has been severe and i ntractable. Patient has previous admission with similar symptoms, she used to get peritoneal dialysis, however this had to be stopped due to peritonitis. According to her mother there are multiple people in her family with similar symptoms and they seem to be passing it to on e another. In the ED labs were significant for leukocytosis and elevated potassium of 6.2. Patient was given antiemetic medication and fluids with some improvement. CT of the abdomen was obtaine d that showed left adrenal mass, diverticulosis without diverticulitis, evidence of chronic inflammation of peritoneal dialysis and right ovarian cystic mass. PMHx: Past Medical History Diagnosis Date Diverticulitis 01/05/2019 Diverticulosis ESRD on peritoneal dialysis (HCC) 10/28/2015 ESRD from [facility] on kidney biopsy showing global glomerulosclerosis. There was not enough talay pling for IF or EM. Serological workup with hepatitis panel, HIV testing, CRYSTAL, syphilis nega tive. She had normal C4 and minimally reduced C3 level. Free light chain ratio normal. Imagi ng with kidney ultrasound from 10/25/15 showed normal sized kidneys. She initiated LEAVE SPECIALIST with PD 10/28/15. 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 GERD (gastroesophageal reflux disease) Hypercalcemia 09/07/2017 Hyperphosphatemia 10/28/2015 Hypocalcemia 10/28/2015 Hypokalemia 06/04/2017 Itching 10/28/2015 Metabolic acidosis 10/28/2015 Obesity Other chronic pain Peritonitis associated with peritoneal dialysis (HCC) 01/24/2017 Peritonitis due to infected peritoneal dialysis catheter (HCC) 12/08/2018 Secondary hyperparathyroidism (HCC) Uremia 10/28/2015 PSHx: Past Surgical History Procedure Laterality Date AV FISTULA PLACEMENT Left 03/11/2019 Procedure: AV FISTULA; Surgeon: Qasim Pederson MD; Location: [facility] MA[facility] OR; Service: Vascu lar; Laterality: Left; CATHETER REMOVAL N/A 02/04/2019 Procedure: DIALYSIS CATHETER - REMOVAL; Surgeon: Qasim Pederson MD; Location: [facility] OR ; Service: Vascular; Laterality: N/A; Infected PD catheter removal ESOPHAGOGASTRODUODENOSCOPY N/A 09/10/2017 Procedure: ESOPHAGOGASTRODUODENOSCOPY; Surgeon: Beena Peters MD; Location: [facility]; Service: Gastroenterology; Laterality: N/A; PERITONEAL CATHETER INSERTION N/A 10/28/2015 Procedure: LAPAROSCOPIC - PERITONEAL DIALYSIS CATH INSERTION; Surgeon: Mundo Ramos MD; Lo cation: [facility] OR; Service: Vascular; Laterality: N/A; WISDOM TOOTH EXTRACTION Prior To admission Meds: Prior to Admission [...] every 4 (four ) hours as needed. 03/11/19 Man Jeronimo PA-C promethazine (PHENERGAN) 25 MG tablet Take 25 mg by mouth every 6 (six) hours as needed for Nausea. Historical Provider sevelamer (RENVELA) 800 MG tablet Take 2 tablets by mouth 3 (three) times daily with meals. 02/15/19 02/15/20 Ginger Bass MD traZODone (DESYREL) 100 MG tablet Take 100 mg by mouth nightly. Historical Provider Medications scheduled: sodium chloride 10 mL Intravenous Q8H Allergies: No Known Allergies Family Hx: Family History Problem Relation Age of Onset Other (see comments) Mother healthy Diabetes Father Breast cancer Maternal Grandmother Social Hx: Social History Substance Use Topics Smoking status: Former Smoker Packs/day: 0.25 Quit date: 10/10/2015 Smokeless tobacco: Never Used Alcohol use 0.0 oz/week Comment: occ Review of Symptoms: Constitutional: Negative for fever, chills, diaphoresis, activity change, appetite change, fatigue and unexpected weight change. HENT: Negative for hearing loss, ear pain, nosebleeds, congestion, facial swelling, rhinorr hea, neck pain, neck stiffness, dental problem, tinnitus and ear discharge. Eyes: Negative for photophobia, pain, discharge, redness, itching and visual disturbance. Respiratory: Negative for apnea, cough, chest tightness, shortness of breath and wheezing. Cardiovascular: Negative for chest pain, palpitations and leg swelling. Gastrointestinal: Positive for nausea, vomiting, abdominal pain, diarrhea. Negative for con stipation, blood in stool, abdominal distention, anal bleeding and rectal pain. Genitourinary: Negative for dysuria, frequency, hematuria, flank pain, difficulty urinating and dyspareunia. Musculoskeletal: Negative for back pain, joint swelling, arthralgias and gait problem. _ Skin: Negative for color change, pallor, rash and wound. Neurological: Negative for dizziness, tremors, seizures, syncope, weakness, light-headednes s, numbness and headaches. Hematological: Negative for adenopathy. Does not bruise/bleed easily. Psychiatric/Behavioral: Negative for suicidal ideas, hallucinations, behavioral problems, c onfusion and agitation. Objective: Vital Signs: BP 157/83 | Pulse 71 | Temp 97.4 F (36.3 C) (Oral) | Resp 16 | Wt 82 kg (180 lb 12. 4 oz) | LMP 03/12/2019 | SpO2 99% | BMI 33.06 kg/m Physical Exam: Constitutional: Oriented to person, place, and time. appears well-developed and well-nouris hed. HEENT: Head: Normocephalic and atraumatic. Nose: Nose normal. Mouth/Throat: Oropharynx is clear and moist. Eyes: Conjunctivae and EOM are normal. Pupils are equal, round, and reactive to light. Righ t eye exhibits no discharge. Left eye exhibits no discharge. No scleral icterus. Neck: Normal range of motion. Neck supple. No JVD present. No tracheal deviation present. N o thyromegaly present. no cervical adenopathy. Cardiovascular: Normal rate, regular rhythm, normal heart [...] There is no rebound and no guarding. Extremities/Musculoskeletal: Normal range of motion.exhibits no tenderness. exhibits no ed maico. Neurological: Alert and oriented to person, place, and time. Has normal reflexes. display s normal reflexes. No cranial nerve deficit. Exhibits normal muscle tone. Coordination norm al. Skin: Skin is warm and dry. No rash noted. No erythema. No pallor. Psychiatric: Has a normal mood and affect. Behavior is normal. Judgment normal. Data: CBC: Lab Results Component Value Date WBC 18.30 (H) 04/02/2019 RBC 5.54 (H) 04/02/2019 HGB 15.3 04/02/2019 HCT 48.0 (H) 04/02/2019 MCV 86.7 04/02/2019 MCH 27.6 04/02/2019 MCHC 31.9 (L) 04/02/2019 RDW 47.7 04/02/2019 PLT 364 04/02/2019 MPV 8.5 04/02/2019 DIFFTYPE AUTOMATED 04/02/2019 CMP: Lab Results Component Value Date NA 139 04/02/2019 K 6.2 (H) 04/02/2019 CL 104 04/02/2019 CO2 24 04/02/2019 ANIONGAP 17 04/02/2019 GLUF 108 (H) 04/02/2019 BUN 42 (H) 04/02/2019 CREATININE 9.19 (H) 04/02/2019 BCR 5 04/02/2019 CA 10.5 04/02/2019 CA 9.0 09/07/2017 PROT 8.4 (H) 04/02/2019 ALB 5.0 04/02/2019 GLOB 3.4 04/02/2019 BILITOT 0.3 04/02/2019 ALP 98 04/02/2019 AST 17 04/02/2019 ALT 7 (L) 04/02/2019 EGFR 5 (L) 04/02/2019 IMAGING: Ct Abdomen & Pelvis With Contrast Result Date: 04/02/2019 CT ABDOMEN AND PELVIS WITH CONTRAST CLINICAL INFORMATION: Left lower quadrant pain. COMPARI SON: IR GUIDANCE VASCULAR ACCESS US (2019); US ABDOMEN LIMITED (02/01/2019); US PELVIS W ITH ENDOVAGINAL (02/01/2019); CT ABDOMEN AND PELVIS WITHOUT AND WITH CONTRAST AND ANGIOGRAPHY (01/04/2019); CT ABDOMEN PELVIS W CONTRAST (09/07/2017); PROCEDURE: Axial images through the abdomen and pelvis after the administration of 70 ml OMNIPAQUE 350 intravenous contrast. Mu ltiplanar reconstructions. At least one of the following CT dose optimization techniques wer e used: Automated exposure control; Adjustment of mA and/or kV according to patient size; Us e of iterative reconstruction technique. FINDINGS: LUNG BASES: No significant pulmonary abno rmality. No pleural effusion or pneumothorax. ABDOMEN Liver and Biliary: No gallbladder or b iliary abnormality. No significant liver abnormality. Pancreas, Spleen and Adrenals: No panc reatitis or pancreatic mass. No splenomegaly, splenic mass or splenic hemorrhage. 14 mm lef t adrenal mass is unchanged compared to the prior examination = 38 Hounsfield units attenuat ion. Kidneys: Kidneys appear small. No evidence of mass, stone, hydronephrosis. ABDOMEN AND PELVIS Bowel: Nonobstructive bowel pattern. Although there appears to be "cocooning" of sm all bowel loops in the right lower quadrant of the abdomen likely associated with chronic in flammation from peritoneal dialysis. And this can predispose to bowel obstruction. No evid ence of bowel wall thickening or mass. The appendix is normal in caliber. Moderate colonic diverticulosis of the descending and sigmoid colon but no evidence of diverticulitis. Patie nt does have missed the mesentery particularly in the pelvis anteriorly but no adenopathy. V essels: No significant abnormality in the aorta or its proximal branches. No significant abn ormality in the portal veins, mesenteric veins or systemic veins. Lymph Nodes: No adenopathy . Peritoneum and Retroperitoneum: No ascites or free air. No significant retroperitoneal abn ormality. PELVIS Genitourinary: Distal ureters are unremarkable. Urinary bladder is contrac medina not well seen but no obvious mass or stone. The reticulated appearing "missed the mesen clarence" in the pelvis likely residual of prior peritoneal dialysis as described above. Left o vary appears slightly increased in size compared to the prior examination and the right ovar y is again noted to be asymmetrically larger than the contralateral side. Previously reporte d as a complex cystic mass. BODY WALL Soft Tissues: No bowel or inflamed fat containing mohan ia, mass or hemorrhage. Bones: No acute fracture or vertebral end plate destruction. No lyti c or blastic lesion. 1. Left adrenal mass is unchanged compared to studies back to 09/07/2017 2. Bilateral small kidneys consistent with a history of renal failure 3. Sigmoid diverticulosis but no evidenc e of diverticulitis. 4. Segregation of loops of small bowel in the right abdomen with a sugg estion of a thin surrounding membrane likely secondary to the chronic inflammation of perito aquilino dialysis. This may predispose to bowel obstruction. But no evidence of obstruction at this point in time. 5. The left and right ovary appear to be slightly increased in size. Wh ile the right ovarian complex cystic masses being surveilled with ultrasound further evaluat ion with CA 125 levels if not previously performed should be considered. Signed by: Bianka Contreras, Benji Sign Date/Time: 04/02/2019 6:45 PM Problem List: Principal Problem: Intractable nausea and vomiting Active Problems: Ovarian mass, right Leukocytosis End-stage renal disease (HCC) Assessment and Plan: Intractable nausea and vomiting, appears to be viral, as patient's family/contacts have/are having similar symptoms. Possible peritonitis, however I am not convinced of this - Supportive care - antiemetic therapy - monitor CBC - holding abx at this time as no evidence of bacterial infection ESRD - patient gets dialysis MWF, missed today due to N/V - Will consult nephrology - Will need dialysis - monitor electrolytes carefully Hyperkalemia - patient missed dialysis - monitor DVT prophylaxis - Heparin Patient's old records and labs were reviewed in detail. Code Status: Prior Primary Care Physician: JUAN F Gillis DO 04/02/2019 9:38 PM documented in this encou nter Consult Notes Kashif Reyna MD - 04/03/2019 3:22 PM PDT Consult* by Kashif Reyna MD at 04/03/19 1522 Author: Kashif Reyna MD Service: Nephrology Author Type: Physician Filed: 04/03/19 1546 Date of Service: 04/03/191521 Status: Signed Beverage Specialist: Kashif Reyna MD (Physician) PCP : JUAN F WHITLEY LOS: 1 day Ramona Oconnor is a 39 y.o. woman known to have ESRD from chronic GN with global gl omerulosclerosis on kidney biopsy. She is known to me from previous admissions. She was last seen by me 01/04/2019 when she was admitted with recurrent abdominal pain/snehal rn with diverticulitis/peritonitis. Since that time she has had recurrent episodes of suspected peritonitis which have been cul ture negative and she has converted to hemodialysis and PD catheter has been removed. She is now on a Friday, Friday, Friday dialysis schedule. She was admitted with recurrent nausea/vomiting/abdominal pain without any fever for the pa st couple of days. She missed her scheduled dialysis yesterday. In the emergency room she was hemodynamically stable with no fever/tachycardia/bradycardia/ hypotension or severe hypertension/hypoxia at rest. Imaging with Ct Abdomen & Pelvis With Contrast 04/02/2019 did not show any clear evidence of diverticulitis/intra-abdominal collection or significant pathology. She had no fever on admission although she did have leukocytosis with predominant neutrophi vincent. She also had hyperkalemia with a potassium of 6.2 and increased anion gap metabolic acidosi s with mild hypercalcemia with calcium of 10.5. She did not have any EKG changes of hyperkalemia. Lactate level is minimally elevated at 2.1. She was admitted although she was not given any antibiotics given no clear evidence of infe ction. Nephrology consultation was requested by Dr. Gillis for ESRD management/hyperkalemia. She received uncomplicated dialysis today. White cell count today has normalized. ROS: As in History of Present Illness. [...] s. No rebound tenderness and no guarding. Multiple hyperpigmented lesions on the abdomen [c hronic]. Musculoskeletal: No gross deformity, EXT: No LE edema. Distal pulses palpable. Neurological: Speech fluent. Sensorium normal. Gait not tested. Moves all 4 extremities. Skin: Skin is warm and dry. Psychiatric: Pleasant demeanor. Dialysis access Right IJ tunneled dialysis catheter with no evidence of malfunction or inflammation. Left brachiocephalic AV fistula with bruit. The following portions of the patient's history were reviewed and updated as appropriate: l aboratory data, radiologic studies, allergies, current medications, and problem list. Past m edical, surgical, social, and family history was also reviewed as appropriate. Past history summarized as above. Vital Signs: BP 139/77 (BP Location: Right upper arm) | Pulse 58 | Temp 97.6 F (36.4 C) (Oral) | Resp 16 | Ht 1.575 m (5' 2") | Wt 81.1 kg (178 lb 14.4 oz) | LMP 03/12/2019 | SpO2 98% | ? No | BMI 32.72 kg/m Data evaluation: Lab Results Component Value Date BUN 50 (H) 04/03/2019 CREATININE 11.0 (H) 04/03/2019 EGFR 4 (L) 04/03/2019 NA 136 04/03/2019 K 6.0 (H) 04/03/2019 CL 101 04/03/2019 CO2 23 04/03/2019 CA 8.5 04/03/2019 PHOS 5.1 (H) 04/03/2019 MG 3.7 (H) 04/03/2019 ALB 5.0 04/02/2019 HGB 11.7 04/03/2019 Echo 12/08/2018 showed EF between 60 - 65 %. Mild concentric left ventricular hypertrophy. Assessment and Recommendations: 1. ESRD on HD 2. Recurrent abdominal pain She is admitted with recurrent abdominal pain ? Gastroparesis. There is no clear evidence of infection at this time although she did have leukocytosis on presentation. She has had GI work up including EGD in the past BP is OK. Access is working well. She is euvolemic. Continue current medications for now. From my perspective if she is stable tomorrow then she may be discharged and she will re sume outpatient maintenance hemodialysis on Friday. Diet: 1 gm PO4 restricted diet. Dose all meds for an eGFR of less than 15 ml/min/1.73 m2. No use of NSAIDs (including MENDES 2 inhibitors). No use of Magnesium or aluminum containing antacids. No use of Magnesium or phosphorus containing laxatives Strict I/O Daily weights. KASHIF REYNA MD 04/03/2019 Portions of my previous notes have been carried over for continuity of care. She was seen earlier in the day and charting was completed later after rounds. Dictation software, was [employer], used which may contain error for similar sounding words deja rodgers after review. Personal communication is requested for any clarification. Prognosis is guarded in view of multiple comorbid illnesses and ESRD heparin (porcine) 5000 unit/0.5mL 5,000 Units Subcutaneous 2 times per day pantoprazole 40 mg Oral QAM AC sevelamer 1,600 mg Oral BID AC sevelamer 2,400 mg Oral Daily with dinner sodium chloride 10 mL Intravenous Q8H traZODone 100 mg Oral Nightly documented in this en counter ED Notes Conversion Transaction, Provider Unknown - 04/02/2019 7:16 PM PDTFormatting of this note m ight be different from the original. ED Notes by Rosmery Dunn RN at 04/02/191915 Author: Rosmery Dunn RN Service: (none) Author Type: Registered Nurse Filed: 04/02/191916 Date of Service: 04/02/191915 Status: Signed Beverage Specialist: Rosmery Dunn RN (Registered Nurse) Pt continues to ''cry'' when someone is in the room with her but produces no tears. When pt is unaware that staff are in room she is not crying Rosmery Dunn RN 04/02/191916 onver patric Transaction, Provider Unknown - 04/02/2019 6:14 PM PDT ED Notes by Rosmery Dunn RN at 04/02/191813 Author: Rosmery Dunn RN Service: (none) Author Type: Registered Nurse Filed: 04/02/191813 Date of Service: 04/02/191813 Status: Signed Beverage Specialist: Rosmery Dunn RN (Registered Nurse) Family at bedside. Rosmery Dunn RN 04/02/191813 onver patric Transaction, Provider Unknown - 04/02/2019 6:14 PM PDT ED Notes by Rosmery Dunn RN at 04/02/191813 Author: Rosmery Dunn RN Service: (none) Author Type: Registered Nurse Filed: 04/02/191813 Date of Service: 04/02/191813 Status: Signed Beverage Specialist: Rosmery Dunn RN (Registered Nurse) Patient is resting comfortably. Rosmery Dunn RN 04/02/191813 onver patric Transaction, Provider Unknown - 04/02/2019 3:28 PM PDT ED Notes by Rosmery Dunn RN at 04/02/191527 Author: Rosmery Dunn RN Service: (none) Author Type: Registered Nurse Filed: 04/02/19 152 Date of Service: 04/02/191527 Status: Signed Beverage Specialist: Rosmery Dunn RN (Registered Nurse) Lab called for blood draw Rosmery Dunn RN 04/02/19 152 onver patric Transaction, Provider Unknown - 04/02/2019 12:50 PM PDT ED Notes by Rosmery Dunn RN at 04/02/19 1250 Author: Rosmery Dunn RN Service: (none) Author Type: Registered Nurse Filed: 04/02/19 1250 Date of Service: 04/02/19 1250 Status: Signed Beverage Specialist: Rosmery Dunn RN (Registered Nurse) C/o vomiting for 12 hours. nad Rosmery Dunn RN 04/02/19 1250 onver patric Transaction, Provider Unknown - 04/02/2019 12:48 PM PDT ED Notes by Rosmery Dunn RN at 04/02/19 1248 Author: Rosmery Dunn RN Service: (none) Author Type: Registered Nurse Filed: 04/02/19 1249 Date of Service: 04/02/19 124 Status: Signed Beverage Specialist: Rosmery Dunn RN (Registered Nurse) Pt does not make urine (re urine specs ordered). Dr mujica informed Rosmery Dunn RN 04/02/19 1249 rvin Mujica MD - 04/02/2019 12:12 PM PDTFormatting of this note might be different from the orig inal. ED Provider Notes by Irvin Mujica MD at 04/02/19 1212 Author: Irvin Mujica MD Service: Emergency Department Author Type: Physician Filed: 04/02/19 190 Date of Service: 04/02/19 1212 Status: Signed Beverage Specialist: Irvin Mujica MD (Physician) [facility] Department of Emergency Medicine 7:02 PM Pt Room: [address] [place] [address] History of Present Illness Patient Identification Ramona Oconnor is a 39 y.o. female. Patient information was obtained from patient. History/Exam limitations: none. Patient presented to the Emergency Department by: Car History of Presenting Illness The patient is a 39 y.o. female presenting with Chief Complaint Patient presents with Abdominal Pain Nausea Diarrhea Location-abdomen Onset-earlier this morning Duration-persistent Severity and Character-8/10 Worse with-time, palpation, eating Better with-nothing Radiation-none Denies- vision change, sore throat, cough, chest pain, shortness of breath, constipation, blood in the urine or stool, rash, fever, mood change Admits-headache,abdominal pain, nausea, vomiting, diarrhea, Context-patient states she woke up at like 3 this morning with abdominal pain, nausea, vomi ting, diarrhea. Patient is a dialysis patient and last received dialysis 2 days ago. She n ormally goes Friday but she was not able to go this morning due to all of t he vomiting. Patient no longer receives peritoneal dialysis. Patient has a history of dive rticulitis. No fever PCP: JUAN F WHITLEY Specialists: Past Medical History Diagnosis Date Diverticulitis 01/05/2019 [...] 10/25/15 showed normal sized kidneys. She initiated LEAVE SPECIALIST with PD 10/28/15. 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 GERD (gastroesophageal reflux disease) Hypercalcemia 09/07/2017 Hyperphosphatemia 10/28/2015 Hypocalcemia 10/28/2015 Hypokalemia 06/04/2017 Itching 10/28/2015 Metabolic acidosis 10/28/2015 Obesity Other chronic pain Peritonitis associated with peritoneal dialysis (HCC) 01/24/2017 Peritonitis due to infected peritoneal dialysis catheter (HCC) 12/08/2018 Secondary hyperparathyroidism (HCC) Uremia 10/28/2015 Past Surgical History Procedure Laterality Date AV FISTULA PLACEMENT Left 03/11/2019 Procedure: AV FISTULA; Surgeon: Qasim Pederson MD; Location: [facility] MAIN OR; Service: Vascu lar; Laterality: Left; CATHETER REMOVAL N/A 02/04/2019 Procedure: DIALYSIS CATHETER - REMOVAL; Surgeon: Qasim Pederson MD; Location: [facility] MA[facility] OR ; Service: Vascular; Laterality: N/A; Infected PD catheter removal ESOPHAGOGASTRODUODENOSCOPY N/A 09/10/2017 Procedure: ESOPHAGOGASTRODUODENOSCOPY; Surgeon: Beena Peters MD; Location: [facility]; Service: Gastroenterology; Laterality: N/A; PERITONEAL CATHETER INSERTION N/A 10/28/2015 Procedure: LAPAROSCOPIC - PERITONEAL DIALYSIS CATH INSERTION; Surgeon: Mundo Ramos MD; Lo cation: [facility] MA[facility] OR; Service: Vascular; Laterality: [...] every 4 (four ) hours as needed. 03/11/19 Man Jeronimo PA-C promethazine (PHENERGAN) 25 [...] healthy Diabetes Father Breast cancer Maternal Grandmother I have personally reviewed the social history, pertinent history has been addressed. Review of Systems Complete review of systems obtained and negative except as stated above in HPI Physical Exam BP (!) 172/102 (BP Location: Right forearm) | Pulse 75 | Temp 97.4 F (36.3 C) (Oral) | Resp 20 | Wt 82 kg (180 lb 12.4 oz) | SpO2 100% | BMI 33.06 kg/m Vitals interpretation: Elevated blood pressure Pulse Oximetry interpretation: Normal General: Morbidly obese female holding a vomit bag Head: Normocephalic, atraumatic Eyes: Normal inspection, pupils equal and round and reactive, non-icteric. EOMI ENT: External Ears normal Nose normal Moist mucous membranes Oropharynx clear Neck: Normal inspection Supple Cardiovasc: Rate and rhythm normal. Port in right upper chest No murmurs Respiratory: Breath sounds equal bilaterally No rales, wheezing or rhonchi or other sounds of fluid overload Abdomen: Soft, obese. Diffuse tenderness. No fluid wave No guarding or rebound,No peritoneal signs Genitourinary: Deferred Rectal exam: Deferred Back: Normal inspection Extremities: No swelling or redness Skin: Color normal Warm and dry No rash Neuro: Alert, no AMS No gross motor/sensory deficits Moving all extremities Psych: Normal Mood Normal judgement Medical Decision Making and Emergency Department Course ED Department Course 39 y.o. female presents to the ED with a chief complaints of abdominal pain, nausea, vomit ing, diarrhea. This is acute in onset. Considered bowel obstruction however patient is als o having diarrhea. Patient has history of diverticulitis and will check for this. Will riri ck for electrolyte abnormality. Will obtain screening EKG and electrolytes as she is suppos ed to obtain dialysis today. Considered repeat diverticulitis. Patient story is most consi stent with a gastroenteritis. Unlikely spontaneous bacterial peritonitis. Pain is not out of proportion and unlikely mesenteric ischemia.. Will order labs and imaging Review of vitals BP (!) 172/102 (BP Location: Right forearm) | Pulse 75 | Temp 97.4 F ( 36.3 C) (Oral) | Resp 20 | Wt 82 kg (180 lb 12.4 oz) | SpO2 100% | BMI 33.06 kg/m ====EKG Interpretation==== Time: 1530 Rate: 97 Rhythm: nsr Cumming: right Intervals: normal ST: No significant ST elevations or depressions T Waves: unchanged, not peaked Other: none Compared to ekg done 02/05/19 Overall Impression: Non-specific EKG with no signs of hyperkalemia Interpreted by Irvin Mujica MD Rhythm strip analysis: Normal sinus rhythm with rate of 97 I personally reviewed the labs and imaging results obtained below. Pertinent positive and negative findings have been addressed appropriately and I have discussed any clinically impo rtant abnormal labs with the patient. Patient's potassium is elevated but she does not have peaked T waves on her EKG. Patient a lso with elevated white count. She has been vomiting. This may be due to that versus infec tion. Awaiting CT scan Patient states she does not make any urine Called and spoke with nephrology. They have added her to their list and can do dialysis in the morning. They do not feel this needs to be done emergently based on EKG and the fact t hat patient does not appear fluid overloaded No signs of diverticulitis. The patient continues to have dry heaving in her room. Will r e-dose with Phenergan. This may be cyclical vomiting or gastroenteritis. Will give 500 mL of fluid. Even though she is a dialysis patient she does not appear significantly fluid ove rloaded and she has been vomiting all day. This may also slightly improve her hyperkalemia Patient placed to hospitalist for admission --- Records Reviewed Old medical records. Previous electrocardiograms. Nursing notes. Laboratory Evaluation Results Procedure Component Value Ref Range Date/Time HCG, QUANTitative (Beta HCG) [[id number]] Collected: 04/02/19 1536 Order Status: Completed Specimen: Blood Updated: 04/02/19 1716 HCG,QUANTITATIVE <4 <4 mIU/mL CBC with differential [[id number]] (Abnormal) Collected: 04/02/19 1244 Order Status: Completed Specimen: Blood Updated: 04/02/19 1312 WBC 18.30 (H) 3.80 - 11.00 K/uL RBC 5.54 (H) 3.70 - 5.10 M/uL HGB 15.3 11.3 - 15.5 g/dL HCT 48.0 (H) 34.0 - 46.0 % MCV 86.7 80.0 - 100.0 fl MCH 27.6 27.0 - 34.0 pg MCHC 31.9 (L) 32.0 - 35.5 g/dL RDW SD 47.7 37 - 53 fl PLT 364 150 - 400 K/uL MPV 8.5 fl DIFF TYPE AUTOMATED NEUTROPHILS 93.17 % LYMPHOCYTES 4.06 % MONOCYTES 1.85 % EOSINOPHILS 0.47 % BASOPHILS 0.45 % NEUTROPHILS ABS 17.05 (H) 1.90 - 7.40 K/uL LYMPHOCYTES ABS 0.74 (L) 1.00 - 3.90 K/uL MONOCYTES ABS 0.34 0.00 - 0.80 K/uL EOSINOPHILS ABS 0.09 0.00 - 0.50 K/uL BASOPHILS ABS 0.08 0.00 - 0.10 K/uL MORPHOLOGY RBC AND PLT MORPHOLOGY APPEAR NORMAL Diff Comment SLIDE SCANNED, AGREES WITH AUTOMATED RESULTS. Comprehensive metabolic panel [[id number]] (Abnormal) Collected: 04/02/191243 Order Status: Completed Specimen: Blood Updated: 04/02/19 1310 SODIUM 139 135 - 145 mmol/L POTASSIUM 6.2 (H) 3.5 - 4.9 mmol/L CHLORIDE 104 99 - 109 mmol/L CO2 24 23 - 32 mmol/L ANION GAP AGAP 17 5 - 20 mmol/L GLUCOSE 108 (H) 65 - 99 mg/dL BUN 42 (H) 8 - 25 mg/dL CREATININE 9.19 (H) 0.50 - 1.00 mg/dL BUN/CREAT 5 CALCIUM 10.5 8.5 - 10.5 mg/dL TOTAL PROTEIN 8.4 (H) 6.3 - 8.2 g/dL Albumin 5.0 3.6 - 5.0 g/dL GLOBULIN 3.4 1.3 - 4.9 g/dL A/G 1.5 1.0 - 2.4 TBIL 0.3 0.1 - 1.5 mg/dL ALK PHOS 98 35 - 115 U/L AST 17 10 - 45 U/L ALT 7 (L) 10 - 65 U/L EGFR 5 (L) >60 mL/min/1.73m2 Lactic acid [[id number]] (Abnormal) Collected: 04/02/191243 Order Status: Completed Specimen: Blood Updated: 04/02/19 1304 LACTIC ACID 2.1 (H) 0.4 - 2.0 mmol/L I personally reviewed the lab results and they have been posted to the chart. Pertinent po sitive and negative findings have been addressed appropriately and I have discussed any abno rmal labs with the patient. Radiology and EKG Evaluation Imaging Results CT Abdomen & Pelvis with contrast (Final result) Result time 04/02/19 18:45:19 Final result by Benji Contreras MD (04/02/19 18:45:19) Impression: 1. Left adrenal mass is unchanged compared [...] not previously performed should be considered. Signed by: Bianka Contreras Dwane Sign Date/Time: 04/02/2019 6:45 PM Narrative: CT ABDOMEN AND PELVIS WITH CONTRAST CLINICAL INFORMATION: Left lower quadrant pain. COMPARISON: IR GUIDANCE VASCULAR ACCESS US (2019); US ABDOMEN LIMITED (02/01/2019); US PELVIS WITH ENDOVAGINAL (02/01/2019); CT ABDOMEN AND PELVIS WITHOUT AND WITH CONTRAST AND ANGIOGRAPHY (01/04/2019); CT ABDOMEN PELVIS W CONTRAST (09/07/2017); PROCEDURE: Axial images through the abdomen and pelvis after the administration of 70 ml OMNIPAQUE 350 intravenous contrast. Multiplanar reconstructions. At least one of the following CT dose optimization techniques were used: Automated exposure control; Adjustment of mA and/or kV according to patient size; Use of iterative reconstruction technique. FINDINGS: LUNG BASES: No significant pulmonary abnormality. No pleural effusion or pneumothorax. ABDOMEN Liver and Biliary: No gallbladder or biliary abnormality. No significant liver abnormality. Pancreas, Spleen and Adrenals: No pancreatitis or pancreatic mass. No splenomegaly, splenic mass or splenic hemorrhage. 14 mm left adrenal mass is unchanged compared to the prior examination = 38 Hounsfield units attenuation. Kidneys: Kidneys appear small. No evidence of mass, stone, hydronephrosis. ABDOMEN AND PELVIS Bowel: Nonobstructive bowel pattern. Although there appears to be "cocooning" of small bowel loops in the right lower quadrant of the abdomen likely associated with chronic inflammation from peritoneal dialysis. And this can predispose to bowel obstruction. No evidence of bowel wall thickening or mass. The appendix is normal in caliber. Moderate colonic diverticulosis of the descending and sigmoid colon but no evidence of diverticulitis. Patient does have missed the mesentery particularly in the pelvis anteriorly but no adenopathy. Vessels: No significant abnormality in the aorta or its proximal branches. No significant abnormality in the portal veins, mesenteric veins or systemic veins. Lymph Nodes: No adenopathy. Peritoneum and Retroperitoneum: No ascites or free air. No significant retroperitoneal abnormality. PELVIS Genitourinary: Distal ureters are unremarkable. Urinary bladder is contracted not well seen but no obvious mass or stone. The reticulated appearing "missed the mesentery" in the pelvis likely residual of prior peritoneal dialysis as described above. Left ovary appears slightly increased in size compared to the prior examination and the right ovary is again noted to be asymmetrically larger than the contralateral side. Previously reported as a complex cystic mass. BODY WALL Soft Tissues: No bowel or inflamed fat containing hernia, mass or hemorrhage. Bones: No acute fracture or vertebral end plate destruction. No lytic or blastic lesion. ED Diagnoses Final diagnoses Nausea vomiting and diarrhea ESRD on hemodialysis (HCC) Hyperkalemia Leukocytosis, unspecified type Disposition: ED Disposition ED Disposition Condition Comment Admit/Observation Bed request special needs: dialysis Diagnosis?: ckd5, n/v/d Follow-up Information None Discharge Medications: New Prescriptions No new medications Procedures Additional Documentation Procedures Irvin Mujica MD 04/02/191901 onversion Transaction, Provider Unknown - 04/02/2019 11:08 AM PDTFormatting of this note might be different from t he original. ED Notes by Rosmery Dunn RN at 04/02/191107 Author: Rosmery Dunn RN Service: (none) Author Type: Registered Nurse Filed: 04/02/19 1108 Date of Service: 04/02/191107 Status: Signed Beverage Specialist: Rosmery Dunn RN (Registered Nurse) 2 patient identifiers checked, patient gowned, side rails up x1 or x2. ID band placed on p atient, call light instructed on and given to patient. Rosmery Dunn RN 04/02/191107 onver patric Transaction, Provider Unknown - 04/02/2019 10:30 AM PDT ED Notes by Michelle King RN at 04/02/19 1030 Author: Michelle King RN Service: (none) Author Type: Registered Nurse Filed: 04/02/19 1031 Date of Service: 04/02/19 103 Status: Signed Beverage Specialist: Michelle King RN (Registered Nurse) Reports abd pain since early this morning along with n/v/d. Hemodialysis patient with last dialysis on Friday. "I am supposed to go today at 11:30 but I am too sick right now to go." Michelle King RN 04/02/19 1031 docume nted in this encounter Miscellaneous Notes Plan of Care - Conversion Transaction, Provider Unknown - 04/04/2019 9:12 AM PDT Plan of Care by Francie Andrews RN at 04/04/19911 Author: Francie Andrews RN Service: (none) Author Type: Registered Nurse Filed: 04/04/19911 Date of Service: 04/04/19911 Status: Signed Beverage Specialist: Francie Andrews RN (Registered Nurse) Problem: Safety Goal: Patient [...] policy, and non-skid footwear provided. Outcome: Progressing Safety measures in place. Bed in locked, lowest position. Call light within reach, patient calls appropriately. lan o f Care - Conversion Transaction, Provider Unknown - 04/03/2019 10:08 PM PDTFormatting of thi s note might be different from the original. Plan of Care by Deanne Jaimes RN at 04/03/192207 Author: Deanne Jaimes RN Service: (none) Author Type: Registered Nurse Filed: 04/03/192207 Date of Service: 04/03/192207 Status: Signed Beverage Specialist: Deanne Jaimes RN (Registered Nurse) Problem: Safety Goal: Patient [...] policy, and non-skid footwear provided. Outcome: Progressing Uncluttered walking paths in room, adequate lighting, call light and overbed within reach, bed in low position, side rails up x2, and non-skid footwear provided. lan o f Care - Conversion Transaction, Provider Unknown - 04/03/2019 4:32 PM PDTFormatting of thi s note might be different from the original. Plan of Care by Mayra Guadalupe RN at 04/03/19 062 Author: Mayra Guadalupe RN Service: (none) Author Type: Registered Nurse Filed: 04/03/19 2592 Date of Service: 04/03/19 358 Status: Signed Beverage Specialist: Mayra Guadalupe RN (Registered Nurse) Problem: Pain Goal: Patient's pain/discomfort is manageable Assess and monitor patient's pain using appropriate pain scale. Collaborate with interdisci plinary team and initiate plan and interventions as ordered. Re-assess patient's pain level approximately 1-2 hours after pain management intervention. Premedicate as needed. Outcome: Progressing Percocet administered once for abdominal pain, patient reported moderate pain relief afterw ards. Comments: Medicated once during shift for nausea and abdominal pain, denied having any diar sasha episodes. Tolerated dialysis well. No new concerns reported to RN. End of shift review completed. Mayra Guadalupe 04/03/2019 lan o f Care - Conversion Transaction, Provider Unknown - 04/02/2019 11:57 PM PDTFormatting of thi s note might be different from the original. Plan of Care by Salome Garcia RN at 04/02/19 1431 Author: Salome Garcia RN Service: (none) Author Type: Registered Nurse Filed: 04/02/19 4755 Date of Service: 04/02/19 059 Status: Signed Beverage Specialist: Salome Garcia, RN (Registered Nurse) Problem: Pain Goal: Patient's pain/discomfort is manageable Assess and monitor patient's pain using appropriate pain scale. Collaborate with interdisci plinary team and initiate plan and interventions as ordered. Re-assess patient's pain level approximately 1-2 hours after pain management intervention. Premedicate as needed. Outcome: Progressing Pt noted to respond well to pain medication. imychal valle - Conversion Transaction, Provider Unknown - 04/02/2019 10:17 PM PDTFormatting of th is note might be different from the original. 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 After reviewing the home medication list : I agree with the home medication list. Confirmed PREP PERSON medications with patient and insurance fill history. Adjusted PREP PERSON medications according to the machine shop repair technician note below. - patient takes sevelamer 1600 mg in the morning, 1600 mg at noon, 2400 mg at night - other changes made per machine shop repair technician note below Please Review and Order Home Medications as necessary. Thanks Phillip Charles RPH 04/02/2019 10:16 PM Rx Medication History Fruit Press Operator Note Patients Preferred Pharmacy has been updated in EPIC: yes [facility] [place] [address] Patients Allergies have been updated and marked as reviewed: yes Patient has no known allergies. The following changes were made to the allergy list (if any): N/A Medication History provided by: Patient and [employer] Info Follow-up Issues: None - Pending Pharmacist Review High Risk Medications (dual source verification needed): None Changes made to the medication list include: Flagged for deletion: Renvela 800mg: patient reported takes differently. 2 tabs in the AM, 2 tabs in the afternoo n, 3 tabs in the PM. Added: Renvela 800n,600mg-2,400 mg TID Reliability of information obtained: RELIABLE Additional Comments: N/A Medication history has been completed: *Awaiting Pharmacist Final Review* Shy Hagan CPhT 04/02/2019 9:28 PM docume nted in this encounter Plan of Treatment Not on filedocumented as of this encounter Procedures + +--------+ + + + | Procedure Name | Priori | Date/Time | Associated Diagnosis | Comments | | | ty | | | | + +--------+ + + + | EXTERNAL LAB: [facility] | Routin | 04/04/2019 | | Results [...] in this encounter Results External Lab: [facility] (04/04/2019 4:57 AM PDT) + + + [...] | | | Basophils | performed at [facility], [address] | [address] | LAB | | | | [address], | | | | | | [place] [address] | | | | + + + [...] EXTERNAL | | | | performed at [facility], [address] | | LAB | | | | [address], | | | | | | [place] [address] | | | | + + + [...] EXTERNAL | | | | performed at [facility], [address] | | LAB | | | | [address], | | | | | | [place] [address] | | | | + + + [...] | | [facility], | | | | | | [place] [address] | | | | + + + [...] [place] | | | | | | [address] | | | | + + + [...] | Basophils | performed at [facility];[address] | [address] | LAB | | | | [address];[place] | | | | | | [address] | | | | + + + [...] [address], | | | | | | [place] [address] | | | | + + + [...] | | | | | [place] [address] | | | | + + + [...] | | [facility], | | | | | | [place] [address] | | | | + + + [...] | | | | | 100 - 16911 - 4 WEEKS | | | | | | . . . . 500 - 697910 - | | | | | | 5 WEEKS . . . . 1000 - | | | | | | 667734 - 6 WEEKS . . . | | | | | | 83641 - [id number] - 8 | | | | | | WEEKS . . . 79284 - | | | | | | [phone] - 3 MONTHS . . . | | | | | | 60040 - 469642 Testing | | | | | | performed at [facility] | | | | | | [facility];[place], [place] | | | | | | [address] | | | | + + + [...] | | | | | ONLY, -COMPUTER ([id number]), | | | | | | Yesenia Ibarra | | | | | | 77 on 04/03/2019 | | | | | | 2:58:40 AM | | | | + + + + + + + + | Specimen | + + | | + + + + + | Narrative | Performed At | + + + | Historically converted procedure from [facility] | EXTERNAL LAB | + + + + +---------+ + + | Performing | Address | City/State/Zipcode | Phone Number | | Organization | | | | + +---------+ + + | EXTERNAL LAB | | | | + +---------+ + + External Lab: CBC (04/02/2019 12:44 PM PDT) + + + [...] [facility] [place];[address] | | | | | | [address];[place], [place] | | | | | | [address] | | | | + + + [...] [facility];[address] | mmol/L | LAB | | | | [address];[place], [place] | | | | | | [address] | | | | + + + [...] performed at [facility];[address] | | | | | | [address];[place], [place] | | | | | | [address] | | | | + + + [...]
--- OUTSIDE RECORDS SUMMARY | ~2020-05-11 | XMS | Encounter Summary ---
Demographics + + + | Address | [address] | | | [place] [address] | + + + | Home Phone [...] [place], [place] | | | | | [address] | | + + + + + | Lydia Palm | ECON | [place], [place] | | | | | [address] | | + + + + + | melinda METZ" | ECON | [place], [place] | | | reba | | [address] | | + + + + + | Jose C Reeves | ECON | [place] | | | | | [place] | | | | | [address] | | + + + + + Care Team Providers + +------+ + | Care Hand Developer Name | Role | Phone | + +------+ + | Juan F Whitley DO | PCP | | + +------+ + Encounter Details +--------+ + + + + | Date | Type | Department | Care Team | Description | +--------+ + + + + | 04/03/ | Orders Only | [facility] | Alireza Ordoñez | | | 2017 | | ASSOCIATED | [address] [place] [address] | | | | | [facility] | [address] | | | | | [address] | [place] [address] | | | | | [address] [place], | [phone] | | | | | [place] [address] | | | | | | [phone] | | | +--------+ + + + [...] + +--------+ + + + | PATHOLOGY NURSES ASSISTANT | Routin | 04/03/2018 | | Results for this | | REQUEST | e | 12:30 PM | | procedure are in the | | | | PDT | | results section. | + +--------+ + + + documented in this encounter Results Pathology Agile Scrum Coach Request (04/03/2018 12:30 PM PDT) + + | Specimen | + + | | + + + + + | Narrative | Performed At | + + + | ORDERING PHYSICIAN: Vandana Krishnan PATIENT NAME: | EXTERNAL LAB | | RAMONA REEVES Haresh GENDER: F : 1980 Prior History: | | | DATE CASE NUM ADEQUACY DIAGNOSIS HPV | | | RESULTS PHYSICIAN The 5 most recent reports are included. This | | | history does not include results of pap smears performed at another | | | laboratory. SPECIMEN(S): Cervical/ Endocervical CLINICAL HISTORY: | | | Routine Pap Smear, [facility] 03/22/2018 CYTOLOGIC INTERPRETATION: Negative | | | [...] in error, | | | please call [phone]. ADDITIONAL NOTES.: The [employer] HPV | | [...] at the performing | | | laboratory. [facility] is certified under CLIA as qualified | | | to perform high complexity clinical laboratory testing. This test is | | | used for clinical purposes. It should not be regarded as | | | investigational or for research. PERFORMING LABORATORY: Technical | | | preparation was performed by [facility], [id number] | | | [place] [address] (Analog Design Engineer: Jairo Mccauley D.O.; | | | CLIA#: [id number]). Diagnostician: Makayla BAUER (ASCP) | | | Falafel Cart Cook Electronically Signed 04/10/2018 | | + + + + +---------+ + + | Performing | Address | City/State/Zipcode | Phone Number | | Organization | | | | + +---------+ + + | EXTERNAL LAB | | | | + +---------+ + + documented in this encounter Visit Diagnoses Not on filedocumented in this encounter
--- OUTSIDE RECORDS SUMMARY | ~2020-05-11 | XMS | Encounter Summary ---
Demographics + + + | Address | [address] | | | [place] [address] | + + + | Home Phone [...] | [facility] | | | and [place] | + + + | Address | Unknown | + + + | Phone | Unavailable | + + + Support + + + + + | Name | Relationship | Address | Phone | + + + + + | Lyubov Smalls | ECON | [place], [place] | | | | | [address] | | + + + + + | Lydia Palm | ECON | [place], [place] | | | | | [address] | | + + + + + | melinda METZ" | ECON | [place], [place] | | | reba | | [address] | | + + + + + | Jose C Oconnor | ECON | [place] | | | | | [place] | | | | | [address] | | + + + + + Care Team Providers + +------+ + | Care Elect Equip Maint Eng Name | Role | Phone | + [...] [facility]ALLARDO | | | | | | ([facility]) | [address] | | | | | | Procedures | [place] | | | | | | VAS Lower | [address] | | | | | | Extremity | Phone: | | | | | | Vein Mapping | [phone] | | | | | | Bilat VAS | Fax: | | | | | | Lower | [phone] | | | | | | Extremity [...] GALLARDO | | | | | | ([facility]) | [address] | | | | | | Procedures | [place] | | | | | | VAS Arm | [address] | | | | | | Mapping For | Phone: | | | | | | Dialysis | [phone] | | | | | | Right | Fax: | | | | | | | [phone] | | +--------+--------+ + + + + Encounter Details +--------+ + + + + | Date | Type | Department | Care Team | Description | +--------+ + + + + | 12/21/ | Orders Only | [facility] | Kylie Alves DNP | ESRD on dialysis | | 2020 | | VASCULAR SURGERY | [address] | ([facility]) (Primary Dx) | | | | [address] | [address] [place], [place] | | | | | [place], [place] | [address] | | | | | [address] | | | | | | [phone] | | | +--------+ + + + [...] | Endy, Rad Results In - 12/24/2019 9:12 AM PST [...] + + | Performing | Address | City[facility] | Phone Number | | Organization [...] [facility] | | Signed by: Daphney Dumont, Slade Sign Date/Time: 12/24/2019 7:52 AM | | [...]
--- OUTSIDE RECORDS SUMMARY | ~2020-05-11 | XMS | Encounter Summary ---
Demographics + + + | Address | [address] | | | [place] [address] | + + + | Home Phone [...] [place], [place] | | | | | [address] | | + + + + + | Lydia Palm | ECON | [place], [place] | | | | | [address] | | + + + + + | melinda METZ" | ECON | [place], [place] | | | reba | | [address] | | + + + + + | Jose C Oconnor | ECON | [place] | | | | | [place] | | | | | [address] | | + + + + + Care Team Providers + +------+ + | Care Alarm Signal Operator Name | Role | Phone | + +------+ + | Juan F Whitley DO | PCP | | + +------+ + Encounter Details +--------+ + + + + | Date | Type | Department | Care Team | Description | +--------+ + + + + | 06/05/ | Emergency | [facility] | Georgette Beavers, | Right flank pain; | | 2018 | | MEDICAL CENTER | DO [address] | ESRD on peritoneal | | | | EMERGENCY CENTER | [place] [address] | dialysis (HCC); | | | | [address] | [phone] | Non-compliance with | | | | [place], [place] | | treatment; Ovarian | | | | [address] | | mass, right | | | | [phone] | | | +--------+ + + + [...] Progress Note by Silviano Lake RN at 06/05/18754 Author: Silviano Lake RN Service: Nephrology Author Type: Registered Nurse Filed: 06/05/18756 Date of Service: 06/05/18754 Status: Signed Aircraft Designer: Silviano Lake RN (Registered Nurse) COLLECTED APPROXIMATELY 5 ML OF PERITONEAL FLUID, UNABLE TO COLLECT ANY MORE, PT WAS GRIMAC ING AND MOANING DURING SYRINGE WITHDRAWAL. DR MEJIA AND BARI MONCADA NOTIFIED docume nted in this encounter ED Notes Conversion Transaction, Provider Unknown - 06/05/2018 5:44 AM PDTFormatting of this note m ight be different from the original. ED Notes by Katharine Leon RN at 06/05/1844 Author: Katharine Leon RN Service: (none) Author Type: Registered Nurse Filed: 06/05/1845 Date of Service: 06/05/18543 Status: Signed Aircraft Designer: Katharine Leon RN (Registered Nurse) Dialysis nurse Michelle contacted, she will draw pt's peritoneal dialysis for sample at 0700. Dr. Beavers notified and ok with plan at this time. Katharine Leon RN 06/05/1845 onver patric Transaction, Provider Unknown - 06/05/2018 5:32 AM PDT ED Notes by Winifred Nelson RN at 06/05/18 0532 Author: Winifred Nelson RN Service: (none) Author Type: Registered Nurse Filed: 06/05/1833 Date of Service: 06/05/18531 Status: Signed Aircraft Designer: Winifred Nelson RN (Registered Nurse) Lab called and notified pt switched to lab method collect and in need of two sets of blood cultures. Winifred Nelson RN 06/05/18532 onver patric Transaction, Provider Unknown - 06/05/2018 3:38 AM PDT ED Notes by Winifred Nelson RN at 06/05/18337 Author: Winifred Nelson RN Service: (none) Author Type: Registered Nurse Filed: 06/05/18338 Date of Service: 06/05/18337 Status: Signed Aircraft Designer: Winifred Nelson RN (Registered Nurse) Attempted to obtain patient vs. Patient still in ultrasound. Winifred Nelson RN 06/05/18338 onver patric Transaction, Provider Unknown - 06/05/2018 12:42 AM PDT ED Notes by Winifred Nelson RN at 06/05/1841 Author: iWnifred Nelson RN Service: (none) Author Type: Registered Nurse Filed: 06/05/1841 Date of Service: 06/05/1841 Status: Signed Aircraft Designer: Winifred Nelson RN (Registered Nurse) Pt states she is anuric. Winifred Nelson RN 06/05/1841 onver patric Transaction, Provider Unknown - 06/05/2018 12:42 AM PDT ED Notes by Winifred Nelson RN at 06/05/1841 Author: Winifred Nelson RN Service: (none) Author Type: Registered Nurse Filed: 06/05/1841 Date of Service: 06/05/1841 Status: Signed Aircraft Designer: iWnifred Nelson RN (Registered Nurse) MD at bedside. Winifred Nelson RN 06/05/1841 onver patric Transaction, Provider Unknown - 06/05/2018 12:38 AM PDT ED Notes by Winifred Nelson RN at 06/05/1837 Author: Winifred Nelson RN Service: (none) Author Type: Registered Nurse Filed: 06/05/1838 Date of Service: 06/05/1837 Status: Signed Aircraft Designer: Winifred Nelson RN (Registered Nurse) Pt states she started having achy right sided kidney pain yesterday. States she get PD ever y day. Last time was yesterday. Winifred Nelson RN 06/05/1838 ookGeorgette helton DO - 06/05/2018 12:32 AM PDTFormatting of this note might be different from the o riginal. ED Provider Notes by Georgette Beavers DO at 06/05/1831 Author: Georgette Beavers DO Service: Emergency Department Author Type: Physician Filed: 06/06/18 0813 Date of Service: 06/05/1831 Status: Signed Aircraft Designer: Georgette Beavers DO (Physician) [facility] Department of Emergency Medicine 12:41 AM History of Present Illness Patient Identification Ramona Oconnor is a 38 y.o. female. Patient information was obtained from patient, relative(s) and past medical records. History/Exam limitations: none. Patient presented to the Emergency Department by: Car Chief Complaint Chief Complaint Patient presents with Flank Pain Right flank pain since yesterday 38 y.o. female with history of peritoneal dialysis, GERD, and diverticulosis presents to [facility] ED complaining of right flank pain. Onset of symptoms was two days ago, with a constant c ourse since that time. The patient describes the symptoms as right kidney pain. The patient reports nothing worsens symptoms, and nothing improves symptoms. Patient receives peritoneal dialysis daily. Patient had dialysis performed two days ago without any complications and mai kearney experiencing right flank pain shortly afterwards. Patient states that she has developed intermittent fever, chills, nausea, and vomiting. Patient has a history of similar symptoms when she had an intraabdominal infection. Care prior to arrival consisted of oral hydration with minimal relief. A recent CT scan showed that the patient had a right adnexal mass conc erning for neoplasm versus cyst. The patient also complains of no other symptoms. Patient denies diarrhea, constipation, or any other symptoms at this time. PCP: [facility] Metal Sprayer Protective Coating: Dr. Mejia Past Medical History Diagnosis Date Diverticulosis GERD [...] by mouth daily. Historical Provider ergocalciferol (DRISDOL) 98144 UNITS capsule Take 50,000 Units by mouth once a week. His torical Provider gentamicin (GARAMYCIN) 0.1 % ointment Apply topically 3 (three) times daily. 01/25/17 Yrn Ba MD HYDROcodone-acetaminophen (NORCO) 5-325 MG per tablet Take 1 tablet by mouth every 6 (six) hours as needed. 03/09/18 Lukas Lynn MD-R2 HYDROcodone-acetaminophen (NORCO) 5-325 MG per tablet Take 1 tablet by mouth every 4 (four) hours as needed. 03/19/18 Arias Singh MD LORazepam (ATIVAN) 1 MG tablet Take 1 mg by mouth every 8 (eight) hours as needed for Anxie ty. Historical Provider ondansetron (ZOFRAN) 8 MG tablet Take 1 tablet by mouth every 8 (eight) hours as needed for Nausea. 01/25/17 Shad Ba MD potassium chloride SA (K-DUR,KLOR-CON) 20 MEQ tablet Take 1 tablet by mouth daily. 03/09/18 03/09/19 SEE Colón promethazine (PHENERGAN) 25 MG tablet Take 1 tablet by mouth every 6 (six) hours as needed for Nausea. 03/09/18 ODALIS ColónR2 sevelamer (RENVELA) 800 MG tablet Take 2 tablets by mouth 3 (three) times daily with meals. 01/25/17 01/25/18 Shad Ba MD zolpidem (AMBIEN) 5 MG tablet Take 1 tablet by mouth nightly as needed for Sleep (may repea t once in 1 hr if initial dose not effective). 03/09/18 SEE Colón No Known Allergies Social History Social History [...] on file Social History Narrative Lives in [facility], [place], no falls, full code Family History Problem Relation Age of Onset Other (see comments) Mother healthy Diabetes Father Breast cancer Maternal Grandmother Review of Systems Constitutional: Positive for fever, chills Negative for fatigue Eyes: Negative for vision changes or photophobia Nose: Negative for congestion Throat: Negative for sore throat or swelling CV/Resp: Negative for chest pain Negative for nsvwadump-vq-ukybpj Negative for cough GI: Positive for right flank pain Positive for nausea Positive for vomiting Negative for constipation Negative for diarrhea Negative for black or bloody stools : Negative for urinary frequency Negative for pain with urination, vaginal discharge, bleeding Musculoskeletal: Negative for back pain Negative for neck pain or stiffness. Skin: Negative for rash Neuro/Psych: Negative for headache All other systems reviewed and negative except as noted. Physical Exam BP 136/63 (BP Location: Right upper arm) | Pulse 67 | Temp 97.3 F (36.3 C) (Temporal) | Resp 28 | Wt 79.2 kg (174 lb 9.7 oz) | SpO2 95% | BMI 31.94 kg/m Vital signs interpretation: tachypneic, otherwise WNL Pt is requiring 0 L O2 via nasal can agustin. Prehospital O2 saturation was 95%. Pulse Oximetry interpretation: Normal General: Alert, though appears to be in pain and extremely nauseated Eyes: Normal inspection, PERRLA, non-icteric, EOM's intact ENT: Ears normal Nose normal Pharynx normal, mucous membranes are dry. Neck: Normal inspection Supple, no lymphadenopathy Non-tender to palpation. Cardiovascular: Rate normal, rhythm normal No murmurs, clicks or rubs Heart sounds are easily auscultated Chest non-tender to palpation Respiratory: Normal work of breathing Breath sounds equal bilaterally No rales, wheezing or rhonchi Abdomen: PD catheter is in place over the RLQ without surrounding skin erythema or swelling Moderate diffuse abdominal tenderness Soft, non-tender, non-distended Normal bowel sounds No guarding or rebound No masses. No pulsatile masses. Back: No spinal tenderness Moderate right CVA tenderness Skin: Color normal Warm and dry No rash Extremities: No swelling or pitting edema. No calf tenderness or palpable cords. Neuro: Alert, no AMS, speech is clear. CN II-XII intact No gross motor/sensory deficits Medical Decision Making and Emergency Department Course ED Department Course Patient presents to ED with complaints of right flank pain. 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 Will treat as shown below and reevaluate the patient. Patient's condition is s table at this time. Medications promethazine (PHENERGAN) IVPB 25 mg (0 mg Intravenous Stopped 06/05/18228) diphenhydrAMINE (BENADRYL) injection 12.5 mg (12.5 mg Intravenous Given 06/05/18124) fentaNYL (SUBLIMAZE) injection 50 mcg (50 mcg Intravenous Given 06/05/18124) fentaNYL (SUBLIMAZE) injection 100 mcg (100 mcg Intravenous Given 06/05/18215) metoclopramide (REGLAN) injection 10 mg (10 mg Intravenous Given 06/05/18216) diphenhydrAMINE (BENADRYL) injection 25 mg (25 mg Intravenous Given 06/05/18216) LORazepam (ATIVAN) tablet 1 mg (1 mg Oral Given 06/05/18439) 12:45 AM Records reviewed. Results from CT scan performed on 03/16 shows as follows: Impression 1. 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 Gynecological consultation recommended. Consider further non emerge nt imaging with dedicated pelvic MRI without and with contrast. 2. Moderate amount of free fluid. 3. Colonic diverticulosis without definite evidence of acute diverticulitis. Results from the pelvic transabdominal/endovaginal ultrasound performed on 04/09 shows as fo llows: Normal sized anteverted uterus with endometrial stripe of 7.2 mm. No uterine masses note. R ight ovary is enlarged due to a complex mass measuring 4.8 cm x 4.3 cm x 3.2 cm (previously measured 3.8 x 3.1 x 3.5 cm on ultrasound) - it is consisted of a solid component and a mult icystic component. Its composition has not changed compared to previous ultrasound and incre ase in size is minimal. Left ovary appears normal. There is moderate amount of free fluid in cul-de-sac. Nabothian cysts visualized in the cervix. 1:[address] abdomen/pelvis reviewed and shows as follows: 1. No dilated or thick-walled bowel is seen. Appendix is normal. 2. There is trace free fluid within the pelvis. Peritoneal dialysis catheter is in place. 3. There is mild heterogeneity and enlargement of the right ovary. This could reflect under lying complex cyst or mass. 4. The kidneys are atrophic. 1:51 AM Blood work reviewed. Cardiac panel shows neutrophilic leukocytosis, mild hypochlore zhou, renal failure, hypoalbuminemia, globulin 5.2, and A/G 0.5. CRP is elevated at 0.7 and p rocalcitonin is elevated at 0.57. Troponin I, drawn at <0.020. is 2:06 AM Chest xray reviewed and shows no acute findings. Will assess lactate, give Reglan a nd Benadryl, and reevaluate the patient. 2:10 AM Reevaluated the patient and discussed the results of the blood work, CT and xray im aging, and EKG performed with the patient. She is in agreement with plan for further workup. 3:13 AM Lactic acid is WNL at 1.3. 4:14 AM Ultrasound reviewed and shows good blood flow to right ovary, so this is unlikely o varian torsion. 4:15 AM Reevaluated the patient and discussed the results of the blood work and ultrasound imaging performed with the patient. Apparently patient has been sleeping, but upon hearing m y footsteps in the hallway, patient began writhing around in pain. Discussed plan for admiss ion for pain control and she is in agreement with plan at this time. Upon review of the patient s history, physical and the results of studies I believe that the patient warrants admission to the hospital for further evaluation and treatment. I have spoken with the patient regarding the need for admission to the hospital, and the patient h as expressed understanding of this. I will call and arrange for admission at this time. 5:18 AM Discussed patient with Dr. Roque, hospitalist. Dr. Roque is aware of and accepts th e patient into her services. Will continue to closely monitor the patient in the ED until sh e is brought into Dr. Roque's services. I appreciate Dr. Roque for her assistance in the car e of this patient. 5:33 AM Discussed patient with Dr. Mejia. Dr. Mejia states that we can get the dialysis n karinee to come dialyze the patient. I appreciate Dr. Mejia for his assistance in the care of this patient. Records Reviewed Nursing notes. Nursing notes reviewed for chief complaint, medications, clinical presentati on and vital signs. Old ED records reviewed (Using the electronic record system of [facility], I car efully reviewed the records with regard to the past medical/surgical history, previous medic ations, and allergies). Laboratory Evaluation Results Procedure Component Value Ref Range Date/Time Body Fluid Cell Count [[id number]] Collected: 06/05/18729 Order Status: Completed Updated: 06/05/18 1103 FLUID TYPE ASCITES FLUID COLOR YELLOW APPEARANCE CLOUDY RBC'S <10,000 /mm3 TOTAL NUCLEATED CELLS 1,484 /mm3 NEUTROPHILS 42 % LYMPHOCYTES 1 % MONOCYTES/MACROPHAGES 56 % EOSINOPHILS 0 % Mesothelial Cells 1 % OTHER CELLS 0 % CELLS COUNTED 100 Cell Count, Body Fluid [[id number]] Collected: 06/05/18729 Order Status: Completed Specimen: Body Fluid from Ascites Fluid Updated: 06/05/18 104 6 FLUID TYPE REPORTED IN ERROR, PLEASE DISREGARD RESULTS. COLOR REPORTED IN ERROR, PLEASE DISREGARD RESULTS. APPEARANCE REPORTED IN ERROR, PLEASE DISREGARD RESULTS. RBC'S REPORTED IN ERROR, PLEASE DISREGARD RESULTS. /mm3 TOTAL NUCLEATED CELLS REPORTED IN ERROR, PLEASE DISREGARD RESULTS. /mm3 NEUTROPHILS REPORTED IN ERROR, PLEASE DISREGARD RESULTS. % LYMPHOCYTES REPORTED IN ERROR, PLEASE DISREGARD RESULTS. % MONOCYTES/MACROPHAGES REPORTED IN ERROR, PLEASE DISREGARD RESULTS. % EOSINOPHILS REPORTED IN ERROR, PLEASE DISREGARD RESULTS. % Mesothelial Cells REPORTED IN ERROR, PLEASE DISREGARD RESULTS. % OTHER CELLS REPORTED IN ERROR, PLEASE DISREGARD RESULTS. % CELLS COUNTED REPORTED IN ERROR, PLEASE DISREGARD RESULTS. Culture, Body Fluid [[id number]] Collected: 06/05/18729 Order Status: Completed Specimen: Other from Ascites Fluid Updated: 06/05/18 1034 Specimen Description ASCITES FLUID GRAM STAIN WBC'S SEEN GRAM STAIN NO ORGANISMS SEEN GRAM STAIN STAIN PERFORMED ON CYTOSPIN CULTURE PENDING Lactic acid [[id number]] Collected: 06/05/1825 Order Status: Completed Specimen: Blood Updated: 06/05/18 0803 LACTIC ACID 1.6 0.4 - 2.0 mmol/L Blood Culture Set 2 [[id number]] Collected: 06/05/18 0558 Order Status: Sent Specimen: Blood from Blood Updated: 06/05/18727 Blood Culture Set 1 [[id number]] Collected: 06/05/18 0557 Order Status: Sent Specimen: Blood from Blood Updated: 06/05/18727 Septic Lactic Acid [[id number]] Collected: 06/05/18 0234 Order Status: Completed Updated: 06/05/18312 LACTIC ACID 1.3 0.4 - 2.0 mmol/L Procalcitonin [[id number]] (Abnormal) Collected: 06/05/1856 Order Status: Completed Updated: 06/05/18150 PROCALCITONIN 0.57 (H) <0.5 ng/mL Troponin I, Lab [[id number]] Collected: 06/05/1856 Order Status: Completed Specimen: Blood Updated: 06/05/18135 TROPONIN I <0.020 0.00 - 0.10 ng/mL C-reactive protein [[id number]] (Abnormal) Collected: 06/05/1856 Order Status: Completed Updated: 06/05/18135 CRP 0.7 (H) <0.5 mg/dL Cardiac Panel [[id number]] (Abnormal) Collected: 06/05/1856 Order Status: Completed Updated: 06/05/18135 WBC 16.42 (H) 3.80 - 11.00 K/uL RBC 4.44 3.70 - 5.10 M/uL HGB 12.8 11.3 - 15.5 g/dL HCT 39.0 34.0 - 46.0 % MCV 87.9 80.0 - 100.0 fl MCH 28.8 27.0 - 34.0 pg MCHC 32.7 32.0 - 35.5 g/dL RDW SD 43.3 37 - 53 fl PLT 400 150 - 400 K/uL MPV 8.6 fl DIFF TYPE AUTOMATED NEUTROPHILS 83.54 % LYMPHOCYTES 11.48 % MONOCYTES 4.16 % EOSINOPHILS 0.31 % BASOPHILS 0.51 % NEUTROPHILS ABS 13.72 (H) 1.90 - 7.40 K/uL LYMPHOCYTES ABS 1.89 1.00 - 3.90 K/uL MONOCYTES ABS 0.68 0.00 - 0.80 K/uL EOSINOPHILS ABS 0.05 0.00 - 0.50 K/uL BASOPHILS ABS 0.08 0.00 - 0.10 K/uL SODIUM 138 135 - 145 mmol/L POTASSIUM 4.4 3.5 - 4.9 mmol/L CHLORIDE 96 (L) 99 - 109 mmol/L CO2 28 23 - 32 mmol/L ANION GAP AGAP 19 5 - 20 mmol/L GLUCOSE 98 65 - 99 mg/dL BUN 33 (H) 8 - 25 mg/dL CREATININE 15 (H) 0.50 - 1.00 mg/dL BUN/CREAT 2 CALCIUM 9.4 8.5 - 10.5 mg/dL TOTAL PROTEIN 7.9 6.3 - 8.2 g/dL Albumin 2.7 (L) 3.6 - 5.0 g/dL GLOBULIN 5.2 (H) 1.3 - 4.9 g/dL A/G 0.5 (L) 1.0 - 2.4 TBIL 0.5 0.1 - 1.5 mg/dL ALK PHOS 92 35 - 115 U/L AST 32 10 - 45 U/L ALT 21 10 - 65 U/L EGFR 3 (L) >60 mL/min/1.73m2 CPK 126 30 - 240 U/L INR 0.9 APTT 27 23 - 32 seconds MMB <1.0 0.5 - 3.6 ng/mL CK-MB Index UNABLE TO CALCULATE I personally reviewed the lab results and they have been posted to the chart. Pertinent po sitive and negative findings have been addressed appropriately. EKG and Radiology Evaluation Imaging Results US endovaginal (Final result) Result time 06/05/18 04:27:05 Final result by Lukas Dean MD (06/05/18 04:27:05) Impression: 1. Enlarged right ovary measuring 42 cc with complex cystic lesion measuring 3.6 x 2.8 x 3. 4 cm. Some internal vascularity is again seen within this lesion. Neoplasm not excluded. 2. Left ovary appears normal. 3. No torsion seen. RADIA Electronically signed by Lukas Dean MD on Jun 05 2018 4:27AM Referring Provider Line: [phone] ID: [id number] Narrative: EXAM: PELVIC ULTRASOUND EXAM DATE: 06/05/2018 03:58 AM. CLINICAL HISTORY: Pelvic pain. COMPARISON: CT, 06/05/2018. Ultrasound, 04/09/2018. TECHNIQUE: Realtime transvaginal pelvic scan performed with static image documentation. FINDINGS: Uterus: 6.9 x 3.4 x 3.9 cm, volume 48 cc. Anteverted position. Normal overall size and echo texture. Masses: None. Endometrium: 6.2 mm. Normal. Cervix: Unremarkable. Right Ovary: 5.1 x 4.4 x 3.6 cm, volume 42 cc. Complex cystic area measuring 3.6 x 2.8 x 3. 4 cm. Blood flow seen in the ovary. Again seen is some vascularity within the complex area. Left Ovary: 2.1 cm. Normal echotexture and blood flow. Free Fluid: None. Other: None. CT Abdomen & Pelvis without contrast (Final result) Result time 06/05/18 01:44:15 Final result by Declan Esteves MD (06/05/18 01:44:15) Impression: 1. No dilated or thick-walled bowel is [...] 05 2018 1:44AM Referring Provider Sandhya ne: [phone] ID: [id number] Narrative: EXAM: CT ABDOMEN AND PELVIS (CT KUB) EXAM DATE: 06/05/2018 01:12 AM. CLINICAL HISTORY: Abdominal pain. COMPARISONS: CT ABDOMEN PELVIS W CONTRAST 03/16/2018 US PELVIS WITH ENDOVAGINAL 04/09/2018 11:23 AM. TECHNIQUE: Routine axial helical CT imaging was performed through the abdomen and pelvis wi thout IV contrast. Reconstructions: Coronal and sagittal. In accordance with CT protocol optimization, one or more of the following dose reduction te chniques were utilized for this exam: automated exposure control, adjustment of mA and/or KV based on patient size, or use of iterative reconstructive technique. FINDINGS: Lung Bases: Unremarkable. Abdominal Organs: The liver, spleen, and pancreas demonstrate no acute noncontrast abnormal ities. There is a small left adrenal nodule which likely represents an adenoma. The kidneys are atrophic. Gallbladder/bile ducts: No significant abnormalities. Peritoneal Cavity: No dilated or thick-walled bowel is seen. A tibial dialysis catheter is in place. There is a small amount of free fluid within the pelvis. Pelvic Organs: The urinary bladder is decompressed. There is a relatively stable right adne xal heterogeneous density which may represent complex right ovarian cyst. Vasculature: No vascular aneurysms. Other: None. XR Chest PA and Lateral (Final result) Result time 06/05/18 07:12:47 Final result by Pratik Harden MD (06/05/18 07:12:47) Impression: 1. No acute cardiopulmonary process noted. Narrative: RAMONA OCONNOR 1980 38 years XR CHEST 2 VIEW FRONTAL AND LATERAL 06/05/2018 1:07 AM INDICATION: Chest pain. COMPARISON study: 06/04/2017. TECHNIQUE: 2 views FINDINGS: Lungs appear clear. Cardiomediastinal silhouette appears unremarkable. Osseous s tructures appear unremarkable. No pleural effusion seen. EKG performed at 0117 Normal Sinus Rhythm 60 bpm. Normal axis Intervals normal No significant ST segment abnormalities T-wave inversions in the precordial leads No acute ischemia. Unchanged from prior EKG's. Interpreted by me at time of service ED Diagnoses Final diagnoses Right flank pain ESRD on peritoneal dialysis (HCC) Non-compliance with treatment pt has skipped two days of PD. Ovarian mass, right Disposition: ED Disposition ED Disposition Condition Comment Discharge Stable Bed request special needs: None Diagnosis?: intractable abd pain This chart has been created using [employer] Speech Recognition software. The chart has been reviewed and there may still exist sound alike word errors. Procedures Additional Documentation Procedures Attending Provider Note: I, Georgette Beavers DO personally performed the services describe d in this documentation, as scribed by Demar Owen in my presence, and it is both accura te and complete. Chart Reviewed and Completed: 06/06/2018 8:13 AM Scribe: Jason Chavez, scribing for and in the presence of Georgette Beavers DO. Signed by: Jason Shelton 06/06/2018 8:13 AM Georgette Beavers DO 06/06/18 0813 documented in this e ncounter Plan of [...] | | CLOUDY RBC'S | | | <26868 TOTAL NUCLEATED CELLS | | | 1484 NEUTROPHILS | | | 42 LYMPHOCYTES | | | 1 MONOCYTES/MACROPHAGES 56 | | | EOSINOPHILS 0 | | | Mesothelial Cells 1 OTHER | | | CELLS 0 CELLS COUNTED | | | 100 Testing performed at | | | [facility];[address];[place] [address] | | + + + + +---------+ [...] AT 1042: PREVIOUSLY REPORTED | | | <46854 TOTAL NUCLEATED CELLS REPORTED IN ERROR, | [...] | PLEASE DISREGARD RESULTS. Testing performed at [facility];[address] | | | [facility];[place] [address] CORRECTED ON 06/05 AT 1042: PREVIOUSLY | [...] | LAB | | | | [facility]arwal;[place], [place] | | | | | | [address] | | | | + + + [...] 4:27AM Referring Provider | | | Line: [phone] ID: [id number] | | + + + [...] Jun 05 2018 4:27AM Referring Provider Line: [phone] ID: [id number] | |Masses: None. | |Endometrium: [...] 05 2018 4:27AM Referring Provider Line: [phone] ID: [id number] | + + Lactic Acid [...] | LAB | | | | [facility] Agarwal;[place] | | | | | | [address] | | | | + + + [...] | | | | | ONLY, -COMPUTER ([phone]), | | | | | | production editor Yesenia King | | | | | | [phone]) on 06/05/2018 | | | | | | 4:58:37 PM | | | | + + + + + + + + | Specimen | + + | | + + + + + | Narrative | Performed At | + + + | Historically converted procedure from [facility] Epic environment | EXTERNAL LAB | + [...] 1:44AM Referring Provider Line: | | | [phone] ID: [id number] | | + + + [...] 2018 1:44AM | | Referring Provider Line: [phone] ID: [id number] | |Peritoneal Cavity: No dilated [...] 05 2018 1:44AM Referring Provider Sandhya ne: [phone] ID: [id number] | + + XR Chest 2 Claude (06/05/2018 1:07 AM PDT) + + | [...] Conversion - 06/23/2019 11:55 AM PDT RAMONA Huston [facility] yearsXR | | CHEST 2 VIEW FRONTAL [...] at [facility];[address] [place] [address] | | | | | | [facility];[place] [address] | | | | + + + [...] | [facility];[address] [place] [address] | | | | | | [facility];[place] [address] | | | | + + + [...] | | | | | | ACUTE CT Testing | | | | | | performed at [facility];[address] | | | | | | [facility];[place], [place] | | | | | | [address] | | | | + + + [...] at [facility] | | LAB | | | | Maksim Agarwal;[place], [place] | | | | | | [address] | | | | + + + [...]
--- OUTSIDE RECORDS SUMMARY | ~2020-05-11 | XMS | Encounter Summary ---
Demographics + + + | Address | [address] | | | [place] [address] | + + + | Home Phone [...] [place], [place] | | | | | [address] | | + + + + + | Lydia Palm | ECON | [place], [place] | | | | | [address] | | + + + + + | melinda METZ" | ECON | [place], [place] | | | reba | | [address] | | + + + + + | Jose C Oconnor | ECON | [address] | | | | | [place] | | | | | [address] | | + + + + + Care Team Providers + +------+ + | Care Facilities Management Executive Name | Role | Phone | + +------+ + | No, Physician | PCP | Unavailable | + +------+ + Reason for Visit + +--------+ + | Reason | Onset | Comments | | | Date | | + +--------+ + | Post-op Problem | 09/03/ | | | | 2019 | | + +--------+ + Encounter Details +--------+ + + + + | Date | Type | Department | Care Team | Description | +--------+ + + + + | 09/03/ | Telephone | [facility] | Nidhi Whitaker, | Post-op Problem | | 2019 | | VASCULAR SURGERY | RN | | | | | [address] | | | | | | [place] | | | | | | [address] | | | | | | [phone] | | | +--------+ + + + [...] Telephone Encounter - Nidhi Whitaker RN - 09/03/2019 10:18 AM PDTPatient called BONNIE jaeger this morning reporting erythema and warmness at her left upper arm graft site. Onset w as last night. Patient report this morning the area is very tender to touch and her erythem a has increased. She is currently at dialysis and NPO, patient instructed to remain NPO and head to [facility] ER after dialysis, she stated understanding. Dr Pederson and Dr Ramos notified of pat fabiont's impending arrival. Report called to ER. documented in this encounter Plan of Treatment Not on filedocumented as of this encounter Visit Diagnoses Not on filedocumented in this encounter
--- OUTSIDE RECORDS SUMMARY | ~2020-05-11 | XMS | Encounter Summary ---
Demographics + + + | Address | [address] | | | [place] [address] | + + + | Home Phone [...] [place], [place] | | | | | [address] | | + + + + + | Lydia Palm | ECON | [place], [place] | | | | | [address] | | + + + + + | melinda METZ" | ECON | [place], [place] | | | [place]ba | | [address] | | + + + + + | Jose C Oconnor | ECON | [address] | | | | | [place] | | | | | [address] | | + + + + + Care Team Providers + +------+ + | Care Advertising Operations Coordinator Name | Role | Phone | + +------+ + | No, Physician | PCP | Unavailable | + +------+ + Reason for Visit + +--------+ + | Reason | Onset | Comments | | | Date | | + +--------+ + | Follow-up(Procedure) | 11/08/ | | | | 2019 | | + +--------+ + Encounter Details +--------+ + + + + | Date | Type | Department | Care Team | Description | +--------+ + + + + | 12/30/ | Telephone | [facility] | Demar Ponce, | Follow-up(Procedure) | | 2019 | | INTERVENTIONAL | RN | | | | | RADIOLOGY [address] | | [address] | | | | | | [place], [place] | | | | | | [address] | | | | | | [phone] | | | +--------+ + + + [...] Telephone Encounter - Demar Ponce RN - 11/08/2019 8:58 AM PSTRN spoke to tp and she states she is doing good. RN advised pt to call the clinic if any issues or concerns arise. Pt verbalized understanding. 9 :00 AM PSTdocumented in this encounter Plan of Treatment Not on filedocumented as of this encounter Visit Diagnoses Not on filedocumented in this encounter
--- OUTSIDE RECORDS SUMMARY | ~2020-05-11 | XMS | Encounter Summary ---
Demographics + + + | Address | [address] | | | [place] [address] | + + + | Home Phone [...] [place], [place] | | | | | [address] | | + + + + + | Lydia Palm | ECON | [place], [place] | | | | | [address] | | + + + + + | melinda METZ" | ECON | [place], [place] | | | [place] | | [address] | | + + + + + | Jose C Oconnor | ECON | [address] | | | | | [place] | | | | | [address] | | + + + + + Care Team Providers + +------+ + | Care Cinder Crusher Operator Name | Role | Phone | [...] | | ([facility]) Wound | | | | [...] + + | 07/08/ | Anesthesia | [facility] | Claudia Cobb | | | 2019 | Event | [facility] | K, UI PROGRAMMER [address] | | | | | OPER[address] RO[address] [place], [place] | | | | | [facility] | [id number] | | | | | [place], [place] | | | | | | [address] | | | | | | [phone] | | | +--------+ + + + + Anesthesia Record + + + + + | Procedure Name | Responsible | Anesthesia Start | Anesthesia Stop Time | | | Anesthesiologist | Time | | + + + + + | LEFT AXILLA WOUND | Claudia Cobb, | 07/08/19 1147 | 07/08/19 1302 | | DEBRIDEMENT, WASHOUT | UI PROGRAMMER | | | | AND POSSIBLE WOUND [...] 09/08/19901 by | | rissa | Forearm; razz-rdk-qampln catheter | Brandin Gray RN | Fartun [...] | | | procedure documentation); Mask | UI PROGRAMMER | UI PROGRAMMER | | | Ventilation: N/A; Attempts: 1; [...] encounter [place] Notes Anesthesia Postprocedure Evaluation - Claudia Cobb CRNA - 07/08/2019 1:03 PM PDTFor matting of this note might be different from the original. ANESTHESIA POSTANESTHESIA EVALUATION Ramona Oconnor 39 y.o. female 1980 [id number] Procedure(s) LEFT AXILLA WOUND DEBRIDEMENT, WASHOUT AND POSSIBLE WOUND VAC PLACEMENT (Left Knee) Cooperates? Yes Mental Status Performs simple tasks. Respiratory Satisfactory - Airway patent (self maintained). Cardiovascular Satisfactory - Blood pressure and heart rate acceptable Temperature Satisfactory Pain Unsatisfactory - Continue titration of ordered pain medications N/V Control Satisfactory Hydration Satisfactory - No signs of dehydration Vitals Value Taken Time Temp 36.1 C (97 F) 07/08/2019 13:01 Pulse 116 07/08/2019 13:01 Resp 20 07/08/2019 13:01 BP 104/65 07/08/2019 13:01 Arterial Line BP Arterial Line BP 2 SpO2 96 % 07/08/2019 13:01 Electronically signed by Claudia Cobb CRNA 07/08/2019 13:03 NAVOS HEALTHElectronically signed by Claudia Cobb CRNA at 07/08 1:04 PM PDTAnesthesia Procedure Notes - Claudia Cobb CRNA - 07/08/2019 12:14 P M PDTAssociated Order(s): Anesthesia Airway NoteAnesthesia Airway Placement 07/08/2019 11:54 Preprocedure check: patient identified, suction, oxygen, airway equipment checked, airway a ssessed and patient reassessment prior to induction Mask ventilation: N/A Attempts: 1 Airway type: laryngeal mask Size: 4 Cuffed: cuffed Route, reference point: center of mouth Trauma: none Tube placement verification: bilateral chest rise, equal bilateral breath sounds and carbon dioxide detection Performing provider: Claudia Cobb CRNA Please see intraoperative grid for any additional medication documentation. nesthesia Prepr ocedure Evaluation - Claudia Cobb CRNA - 07/08/2019 7:48 AM PDTFormatting of this no te might be different from the original. ANESTHESIA PREANESTHESIA EVALUATION Ramona Oconnor 39 y.o. female 1980 [id number] Procedure(s): LEFT AXILLA WOUND DEBRIDEMENT, WASHOUT AND POSSIBLE WOUND VAC PLACEMENT (Left Knee) Medical,anesthesia, drug, allergy histories reviewed, NPO status verified. (-) perioperative beta-nano/statin not given/taken Reasons Beta Nano not given/taken :not applicable/Not taking Beta-Nano. . Review of Systems / Med History Anesthesia History No anesthesia complications except where noted below. Family Anesthesia History Family Anesthesia Negative except where noted below. Cardiovascular , Exercise tolerance >4 METS(+) hypertension, . Pulmonary Negative except where noted below. (-) tobacco use. Gastrointestinal/Hepatic (+) diverticulitis. (+) acid reflux and well controlled. Renal (+) end-stage renal disease. Endocrine (+) obesity: Hematology/Other Negative except where noted below. Cancer Negative except where noted below. Obstetrics Negative except where noted below. Pediatric History Negative except where noted below. Neuromuscular (+) chronic pain. Psychology Negative except where noted below. (-) substance abuse. Additional Comments: ECHO CONCLUSIONS 1. Overall left ventricular systolic [...] ion normal. Facial hair present: No Dental Grossly normal except where noted below.; CV cardiovascular normal Rhythm regular. Rate normal. Pulm Clear to auscultation bilaterally. Neuro Grossly normal. Anesthesia Plan ASA 3 Type: General. Induction: Intravenous. Potential problems: None anticipated. Monitors: Standard ASA monitors. Additional comments: Wound debridement with wound vac wilder cement. NPO > 8 Hours. Consent statement:Anesthetic plan, alternatives, risks and benefits discussed with patient. , drug reaction, heart problems, nausea, perioperative CV events, sore throat. Consenting person understands and agrees to proceed . Electronically Signed by: Claudia Cobb CRNA ESig date/time: 07/08/2019 11:22 documented in th is encounter Miscellaneous Notes Addendum Note - Claudia Cobb CRNA - 07/08/2019 2:35 PM PDTFormatting of this note m ight be different from the original. Addendum created 07/08/19 1435 by Claudia Cobb CRNA Intraprocedure Event edited, Intraprocedure Staff edited nesthesia Post -op Handoff - Claudia Cobb CRNA - 07/08/2019 1:01 PM PDTFormatting of this note migh t be different from the original. ANESTHESIA HANDOFF NOTE Ramona Oconnor 39 y.o. female 1980 [id number] The following were completed during the transfer [...] of understanding of report from receiving team LEFT AXILLA WOUND DEBRIDEMENT, WASHOUT AND POSSIBLE WOUND VAC PLACEMENT (Left Knee) Patient Location: Phase I Handoff Protocol Used: post-procedure handoff checklist completed Condition: awake Airway/O2: face mask with O2 Multimodal analgesia: multimodal analgesia used between 6 hours prior to anesthesia start t o PACU discharge The significant anesthesia concerns and VS in Epic were reviewed with the receiving team. Claudia Cobb CRNA 07/08/2019 13:02 NAVOS HEALTHElectronically signed by Claudia Cobb CRNA at 07/08 1:02 PM PDTdocumented in this encounter Plan of [...] and carbon dioxide detectionPerforming provider: | | Claudia Cobb CRNAPlease see intraoperative grid for any additional medication [...] +--------+---+---+ | glycopyrrolate (GIOVANI) | Given | 07/08/20 | 0.1 mg [...] 11:49 | | | | | Starting [facility] 07/08/19 at 1149, | | AM PDT | | | | | Anesthesia Intra-op | | | | | | + +-------+ +---------+---+---+ +---+---+ | | | +---+---+ + +---------+ +---+---+---+ | sodium chloride 0.9% (NS) | New Bag | 07/08/20 | | | | | infusion Intravenous, CONTINUOUS | | 19 11:40 | | | | | PRN, Starting [facility] 07/08/19 at | | AM PDT [...]
--- OUTSIDE RECORDS SUMMARY | ~2020-05-11 | XMS | Encounter Summary ---
Demographics + + + | Address | [address] | | | [place] [address] | + + + | Home Phone [...] [place], [place] | | | | | [address] | | + + + + + | Lydia Palm | ECON | [place], [place] | | | | | [address] | | + + + + + | melinda METZ" | ECON | [place], [place] | | | [place] | | [address] | | + + + + + | Jose C Oconnor | ECON | [address] | | | | | [place] | | | | | [address] | | + + + + + Care Team Providers + +------+ + | Care Stationary Plant Operators Name | Role | Phone | + +------+ + | Juan F Whitley DO | PCP | | + +------+ + Encounter Details +--------+ + + + + | Date | Type | Department | Care Team | Description | +--------+ + + + + | 05/04/ | Hospital | [facility] | Conversion | | | 2019 | Encounter | [facility] | Transaction, | | | | | CLINIC [address] | Provider Unknown | | | | | [place], [place] | [phone] | | | | | [address] | | | | | | [phone] | | | +--------+ + + + [...] Procedure Notes Conversion Transaction, Provider Unknown - 05/04/2019 2:18 PM PDTFormatting of this note m ight be different from the original. Pre-Procedure Instructions by Kanwal Phillips RN at 05/04/19 1418 Author: Kanwal Phillips RN Service: Anesthesiology Author Type: Registered Nurse Filed: 05/04/19 1419 Date of Service: 05/04/191417 Status: Signed Lead Sharepoint Developer: Kanwal Phillips RN (Registered Nurse) >4 mets per AHA guidelines for non emergent surgery. Denies cardiac hx, CP or SOB. SSI in structions initiated, Hibiclens given to patient. Left Arm ALERT docume nted in this encounter Plan of [...] | | | performed at [facility] [address] | | + + + + +---------+ [...] | | | | | performed at [facility], [address] | | | | | | [facility], | | | | | | [place] [address] | | | | + + + [...]
--- OUTSIDE RECORDS SUMMARY | ~2020-05-11 | XMS | Encounter Summary ---
Demographics + + + | Address | [address] | | | [place] [address] | + + + | Home Phone [...] [place], [place] | | | | | [address] | | + + + + + | Lydia Palm | ECON | [place], [place] | | | | | [address] | | + + + + + | melinda METZ" | ECON | [place], [place] | | | [place] | | [address] | | + + + + + | Jose C Oconnor | ECON | [address] | | | | | [place] | | | | | [address] | | + + + + + Care Team Providers + +------+ + | Care Slide Fastener Chain Assembler Name | Role | Phone | + +------+ + | Juan F Whitley PCP | | + +------+ + Encounter Details +--------+ + + + + | Date | Type | Department | Care Team | Description | +--------+ + + + + | 01/31/ | Emergency | [facility] | | | | 2018 | | [facility] | | | | | | [facility] | | | | | | [address] | | | | | | [place], [place] | | | | | | [address] | | | | | | [phone] | | | +--------+ + + + [...]
--- OUTSIDE RECORDS SUMMARY | ~2020-05-11 | XMS | Encounter Summary ---
Demographics + + + | Address | [address] | | | [place] [address] | + + + | Home Phone [...] [place], [place] | | | | | [address] | | + + + + + | Lydia Palm | ECON | [place], [place] | | | | | [address] | | + + + + + | melinda METZ" | ECON | [place], [place] | | | [place] | | [address] | | + + + + + | Jose C Oconnor | ECON | [address] [place] | | | | | [place] | | | | | [address] | | + + + + + Care Team Providers + +------+ + | Care Aquatic Life Laborer Name | Role | Phone | [...] + + | 08/24/ | Clinical | [facility] | Nidhi Whitaker, | Surgical wound | | 2019 | Support | VASCULAR SURGERY | RN | dehiscence, | | | | [address] | | subsequent encounter | | | | [place] | | (Primary Dx) | | | | [address] | | | | | | [phone] | | | +--------+ + + + [...] as of this encounter Progress Notes Nidhi Whitaker, MICHELLE - 08/24/2019 1:00 PM PDTPatient presented to office with her mother and niece for left axilla wound recheck. Patient states her last dressing change out with [facility] was last . Patient report [...] see patient due a emergent procedure at lab. Per Dr Pederson, since patient's wound has not healed after several months of wound vac surgery she will need another wound washout next week with AVG removal and wound vac placeme nt. In the meantime she is to continue wound care 3 times a week at [facility] wound clinic. Patient is dissappointment regarding outcome but stated understanding. She will follow up with Dr Pederson on 09/02/2019 at [facility] [place]. documented in this encounter Plan of Treatment Not on filedocumented as of this encounter Visit Diagnoses + + | Diagnosis | + + | Surgical wound dehiscence, subsequent encounter - Primary | + + documented in this encounter
--- OUTSIDE RECORDS SUMMARY | ~2020-05-11 | XMS | Encounter Summary ---
Demographics + + + | Address | [address] | | | [place] [address] | + + + | Home Phone [...] [place], [place] | | | | | [address] | | + + + + + | Lydia Palm | ECON | [place], [place] | | | | | [address] | | + + + + + | melinda METZ" | ECON | [place], [place] | | | [place] | | [address] | | + + + + + | Jose C Oconnor | ECON | [address] | | | | | [place] | | | | | [address] | | + + + + + Care Team Providers + +------+ + | Care Exterior Door Installer Name | Role | Phone | + +------+ + | Unknown, Physician | PCP | | + +------+ + Reason for Visit + +--------+ + | Reason | Onset | Comments | | | Date | | + +--------+ + | Procedure | 12/14/ | infomration | | | 2020 | | + +--------+ + Encounter Details +--------+ + + + + | Date | Type | Department | Care Team | Description | +--------+ + + + + | 12/14/ | Telephone | [facility] | Qasim Pederson MD | Procedure | | 2020 | | VASCULAR SURGERY | [address] | ([facility]) | | | | [address] [place] | [place], [place] | | | | | [place], [place] | [address] | | | | | [address] | | | | | | [phone] | | | +--------+ + + + [...] Telephone Encounter - Nidhi Whitaker RN - 12/14/2019 1:13 PM [facility] is requesting a referral sent to [facility] [phone] so that patient can receive financial help with he r transportation. Lyubov will need information that patient is having day surgery with Dr Angela nieto tomorrow. Inform Lyubov that we will fax all necessary information to [facility], she stated ap preciation. Veronica Gonzales - Jessica Garcia - 12/14/2019 12:14 PM ADRIANALyubov/Mother, is calling regarding Procedure (infomration) and would like a call back. Additional Call Details: Needing information regarding surgery for assistance from the tri be. Home number If this is a symptom based call, was patient offered triage? Not Applicable If this is a symptom based call and you were unable to immediately transfer the call to a angela sadler veterinary laboratory technician was caller made aware that if at any time she feels it is an emergency they sh ould call 911 or go to the nearest emergency room? not applicable documented in this encounter Plan of Treatment Not on filedocumented as of this encounter Visit Diagnoses Not on filedocumented in this encounter
--- OUTSIDE RECORDS SUMMARY | ~2020-05-11 | XMS | Encounter Summary ---
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 | Phone | [...] | | | ([facility]) | | | | | [...] + + | 08/26/ | Anesthesia | [facility] | Dejuan Stubbs Jr., | | | 2019 | Event | [facility] | [place] [address] [facility] | | | | | [address]PER[address] | [place] [address] | | | | | [facility] | [phone] | | | | | [place], [place] | | | | | | [address] | | | | | | [phone] | | | +--------+ + + + [...] 09/08/19901 by | | eral | Forearm; azoc-ryw-yowgqp catheter | Brandin Gray RN | Fartun [...] Amrita Steele RN | | IV | prkl-pfm-yugome catheter system; | RN | | | [...] as of this encounter OR Notes Anesthesia Preprocedure Evaluation - Dejuan Stubbs Jr., MD - 08/26/2019 9:59 PM PDTFormattin g of this note might be different from the original. ANESTHESIA PREANESTHESIA EVALUATION Ramona Oconnor 39 y.o. female 1980 [id number] Procedure(s): REVISION LEFT AXILLARY AVG; WILL NEED C-ARM, OCCLUSION BALLOONS, VIABAHN STEN TS (N/A ) Medical,anesthesia, drug, allergy histories reviewed, NPO status verified. (-) perioperative beta-nano/statin not given/taken, reason: not applicable/Not taking Be ta-Nano. Review of Systems / Med History Anesthesia History (+) previous surgery or anesthesia. Cardiovascular (+) hypertension and essential . Pulmonary Negative except where noted below. Gastrointestinal/Hepatic (+) diverticulitis. (+) acid reflux. Renal (+) end-stage renal disease. (+) hemodialysis dialysis type. Last dialysis: 08/25/2019. Endocrine (+) obesity: BMI (30-39) Hematology/Other Negative except where noted below. Neuromuscular (+) chronic pain. Psychology Negative except where noted below. Physical Exam Airway MP III, TM >3 FB, Mouth opening >2 FB. Neck: full ROM, extends >30 degrees. Jaw protru patric normal. Dental grossly normal except where noted below. CV Rhythm regular. Rate normal. fistula/graft left arm. Pulm Clear to auscultation bilaterally. Neuro grossly normal. Anesthesia Plan ASA: 3E Type: General. Due to emergent nature of case and direct admit to OR from air ambulance, p re-op evaluation and consent done pre-operatively, but documentation of pre-op evaluation co mpleted post-operatively. Induction: Inhalational and intravenous. Potential problems: None anticipated. Monitors: Standard ASA monitors. Arterial line to aid in hemodynamic monitoring. Postop Pain Management: Consent statement: Anesthetic plan, alternatives, risks and benefits discussed with patient. Consenting person understands and agrees to proceed. Electronically Signed by: Dejuan Stubbs Jr, MD ESig date/time: 08/26/2019 21:59 nesthesia Procedure Notes - Dejuan Stubbs Jr., MD - 08/26/2019 7:19 PM PDTAssociated Order(s): AirwayAnesthesia A irway Placement 08/26/2019 17:12 Preprocedure check: patient identified, suction, oxygen, airway equipment checked, airway a ssessed and patient reassessment prior to induction Rapid Sequence Induction: modified Mask ventilation: easy External maneuver: cricoid pressure Successful technique: Mac Laryngoscope blade size: 3 Airway grade: 1 (Full view of glottis) Other equipment: stylette Attempts: 1 Airway type: endotracheal Size: 7 Cuffed: cuffed Route, reference point: right side of mouth Tube depth: 22 cm Tube secured with: adhesive tape Trauma: none Tube placement verification: bilateral chest rise, carbon dioxide detection and equal bilat eral breath sounds Performing provider: Dejuan Stubbs Jr., MD Comments: Easy intubation, no cx's. Dental status unchanged. Uncomplicated modified RSI. Please see intraoperative grid for any additional medication documentation. nesthesia Postproced ure Evaluation - Dejuan Stubbs Jr., MD - 08/26/2019 7:08 PM PDT ANESTHESIA POSTANESTHESIA EVALUATION Ramona Oconnor 39 y.o. female 1980 [id number] Procedure(s) REVISION LEFT AXILLARY AVG; WILL NEED C-ARM, OCCLUSION BALLOONS, VIABAHN STEN TS (N/A ) Cooperates? Yes Mental Status Performs simple tasks. Respiratory Satisfactory - Airway patent (self maintained). Cardiovascular Satisfactory - Blood pressure and heart rate acceptable Temperature Satisfactory Pain Satisfactory N/V Control Satisfactory Hydration Satisfactory - No signs of dehydration Vitals Value Taken Time Temp 36.8 C (98.3 F) 08/26/2019 18:53 Pulse 71 08/26/2019 19:10 Resp 10 08/26/2019 19:10 BP 131/84 08/26/2019 19:05 Arterial Line BP 140/72 08/26/2019 19:10 Arterial Line BP 2 SpO2 99 % 08/26/2019 19:10 Vitals shown include unvalidated device data. Electronically signed by Dejuan Stubbs Jr, MD 08/26/2019 19:08 [facility] documented in this encounter Miscellaneous Notes Anesthesia Post-op Handoff - Dejuan Stubbs Jr., MD - 08/26/2019 7:03 PM PDTFormatting of thi s note might be different from the original. ANESTHESIA HANDOFF NOTE Ramona Oconnor 39 y.o. female 1980 [id number] REVISION LEFT AXILLARY AVG; WILL NEED C-ARM, OCCLUSION BALLOONS, VIABAHN STENTS (N/A ) HANDOFF NOTE Handoff Protocol Used: post-procedure [...] Condition: awake Airway/O2: face mask with O2 Comments: Transient elevated A/w pressures and hypoTN shortly after incision, resolved with Albuterol via ETT and Epi 100 mcg IV. Emergence and extubation without incident. No subsequ ent bronchospasm or hemodynamic instability. Alert and oriented. The significant anesthesia concerns and VS in Epic were reviewed with the receiving team. Dejuan Stubbs Jr, MD 08/26/2019 19:03 [facility] documented in this encounter Plan of Treatment [...] - 08/26/2019 7:19 PM PDT Anesthesia Airway Pfpibnpsa09/17/2019 | | 17:12Preprocedure check: patient identified, suction, [...] mg | | | | PRN, Starting [facility] 08/26/19 at | | 19 5:25 | | | | | 1725, Anesthesia Intra-op | | PM PDT | | | | + +-------+ +--------+---+---+ +---+---+ | | | +---+---+ + +-------+ +-----+---+---+ | ceFAZolin (ANCEF, KEFZOL) | Given | 08/26/20 | 2 g | | | | injection Intravenous, PRN, | | 19 5:18 | | | | | Starting [facility] 08/26/19 at 1718, | | PM PDT [...] | | +-------+ +--------+---+---+ | Given | 08/26/20 | [...] | | | | | PRN, Starting [facility] 08/26/19 at | | PM PDT | [...]
--- OUTSIDE RECORDS SUMMARY | ~2020-05-11 | XMS | Encounter Summary ---
Demographics + + + | Address | [address] | | | [place] [address] | + + + | Home Phone [...] | Organization | [facility] | | | and [place] | + + + | Address | Unknown | + + + | Phone | Unavailable | + + + Support + + + + + | Name | Relationship | Address | Phone | + + + + + | Lyubov Smalls | ECON | [place], [place] | | | | | [address] | | + + + + + | Lydia Palm | ECON | [place], [place] | | | | | [address] | | + + + + + | melinda METZ" | ECON | [place], [place] | | | reba | | [address] | | + + + + + | Jose C Oconnor | ECON | [place] | | | | | [place] | | | | | [address] | | + + + + + Care Team Providers + +------+ + | Care Equipment Operator Name | Role | Phone | + +------+ + | Juan F Whitley DO | PCP | | + +------+ + Encounter Details +--------+ + + + + | Date | Type | Department | Care Team | Description | +--------+ + + + + | 01/22/ | Hospital [facility] | Alexx Pate | Cellulitis; Urinary | | 2017 - | Encounter | [facility] | MD [address] | tract infection, | | | | CARE FLOOR [address] | site unspecified; | | 01/25/ | | [address] | [place] [address] | Abdominal wall | | 2017 | | [place], [place] | [phone] | abscess; CKD | | | | [address] | | (chronic kidney | | | | [phone] | | disease), | | | | [...] Date of Service: 01/25/17 1320 Status: Addendum Paper Box Maker: Shad Ba MD (Physician) Related Notes: Original Note by Shad Ba MD (Physician) filed at 01/25/17 4146 Patient: Ramona Oconnor : 1980 Date of Admission: 01/22/2017 Date of Discharge: 01/25/2017 Treatment Team: Consulting Physician: Andres Mejia MD Admitting Provider: Alexx Pate MD Discharging Provider: Shad Ba MD Discharge Diagnoses: Principal Problem: Abdominal wall abscess Active Problems: ESRD (end stage renal disease) ([facility]) Obesity, unspecified Gastroesophageal reflux disease without esophagitis Resolved Problems: Fatigue Metabolic acidosis Hyperphosphatemia Elevated lipase Peritonitis associated with peritoneal dialysis ([facility]) Procedures Performed: Chief Complaint: Abdominal Pain Hospital [...] been seen at dialysis clinic in the [facility] a sample of pertioneal dialysate and di scharge from neear the peritoneal dialyisis cath was taken and sent for culturesr, the patie nt was then sent over to [facility] and admitted, patient was initially given IV [...] throughout Recent Labs Recent Labs Lab 01/25/17 0414 WBC 11.09* HGB 9.5* HCT 28.3* PLT 338 Recent Labs Lab 01/25/17 0414 NA 136 K 3.7 CL 95* CO2 [...] Around Incision Site) Santos Chi MD [address] [facility] [address] [place] [address] On 02/03/2017 as scheduled [facility] [address] [place] [address] Schedule an appointment as soon as possible [...] Refills: 0 Commonly known as: NORVASC ergocalciferol 21954 UNITS capsule Refills: 0 Commonly known as: DRISDOL Notes to Patient: RESUME HOME SCHEDULE omeprazole [...] Progress Notes Licha Transaurelio, Provider Unknown - 01/25/2017 12:58 PM PDTFormatting of this note m ight be different from the original. Nurse Progress Note by Adonis Bonner RN at 01/25/17 8408 Author: Adonis Bonner RN Service: Nephrology Author Type: Registered Nurse Filed: 01/25/17 1300 Date of Service: 01/25/17 9349 Status: Signed Paper Box Maker: Adonis Bonner RN (Registered Nurse) Patient said she and her will take the dialysis extension off themselves, and that they fill comfortable doing it themselves. Amrik Moreno MD - 01/25/2017 11:23 AM PDTFormatting of this note might be different from the or iginal. Progress Notes by Amrik Reyna MD at 01/25/17 1123 Author: Amrik Reyna MD Service: Nephrology Author Type: Physician Filed: 01/25/17 1429 Date of Service: 01/25/171122 Status: Signed Paper Box Maker: Amrik Ryena MD (Physician) PCP : [facility] LOS: 2 days Ramona Oconnor is a [...] C3 level. Free light chain ratio normal. Norris ging with kidney ultrasound from 10/25/15 showed normal sized kidneys. She initiated HOME ENERGY CONSULTANT wit h PD 10/28/15. Primary senior manager asset protection is Dr. Chi Essential HTN Anemia of [...] Keep in + balance. AMRIK REYNA MD 01/25/2017 Plan of care was [...] completed later after rounds. Dictation software, was [employer], used which may contain error for [...] 500 mg Intravenous See Admin Instructions onversion Transactawa n, Provider Unknown - 01/25/2017 9:23 AM PDT Progress Notes by Adenike Howard RPH at 01/25/17 0923 Author: Adenike Howard RPH Service: (none) Author Type: Pharmacist Filed: 01/25/17922 Date of Service: 01/25/17922 Status: Signed Paper Box Maker: Adenike Howard RPH (Pharmacist) Day 4 Vanco Tx. Todays labs: Scr= 14.5, WBC= 11.09 Pharmacist; ADENIKE HOWARD 01/25/2017 9:23 AM onver patric Transaction, Provider Unknown - 01/25/2017 7:31 AM PDT Progress Notes by Maria Del Rosario Weston RN at 01/25/17730 Author: Maria Del Rosario Weston RN Service: (none) Author Type: Registered Nurse Filed: 01/25/17732 Date of Service: 01/25/17730 Status: Signed Paper Box Maker: Maria Del Rosario Weston RN (Registered Nurse) Patient AOx4. VSS. Afebrile. Patient c/o of pain and nausea 1x. Administered PRN Dilaud id and Zofran 1x, pain and nausea resolved. No other acute changes to initial shift assessm ent. Maria Del Rosario Weston RN onver patric Transaction, Provider Unknown - 01/25/2017 5:09 AM PDT Pharmacy Note by Shelli Bustos RPH at 01/25/17 0509 Author: Shelli Bustos RPH Service: Pharmacy Author Type: Pharmacist Filed: 01/25/17508 Date of Service: 01/25/17508 Status: Signed Paper Box Maker: Shelli Bustos RPH (Pharmacist) Clinical Pharmacy Note: Vancomycin Day 4 Pharmacy dosing vancomycin per Renal Failure Protocol Weight: 92.6 kg WBC: 12.52 CREATININE: 15.3 mg/dL ABNORMAL (01/24/17 0506) Estimated creatinine clearance - 5.4 mL/min INDICATION: Cellulitis Vanco random level today 19.49 mcg/mL; within goal 10 to 20 mcg/mL. No dose today. Next level due tomorrow with AM labs. Shelli Bustos PharmD 01/25/2017 5:07 AM onver patric Transaction, Provider Unknown - 01/24/2017 7:38 PM PDT Nurse Progress Note by Marixa Juarez RN at 01/24/171937 Author: Marixa Juarez RN Service: (none) Author Type: Registered Nurse Filed: 01/24/171938 Date of Service: 01/24/171937 Status: Signed Paper Box Maker: Marixa Juarez RN (Registered Nurse) New IV [...] 01/24/171852 Date of Service: 01/24/171850 Status: Signed Paper Box Maker: Marixa Juarez RN (Registered Nurse) IV infiltrated [...] 01/24/171826 Date of Service: 01/24/171823 Status: Signed Paper Box Maker: Marixa Juarez RN (Registered Nurse) VS stable [...] Progress Notes by Shad Ba MD at 01/24/171753 Author: Shad Ba MD Service: Hospitalist Author Type: Physician Filed: 01/24/171758 Date of Service: 01/24/171753 Status: Signed Paper Box Maker: Shad Ba MD (Physician) [facility] Service: Hospitalist Progress Note [...] ESRD (end stage renal disease) ([facility]) Elevated lipase Obesity, unspecified Gastroesophageal reflux disease without esophagitis Peritonitis associated with peritoneal dialysis ([facility]) ASSESSMENT & PLAN Patient Active Hospital Problem [...] ESRD (end stage renal disease) ([facility]) (01/23/2017) Assessment: On peritoneal dialysis Plan: Dr. [...] patient and motherat bedside, on chart review, client project coordinator rdinating care with other providers, formulating a plan of care and management as well as Co mputerized Physician Time Analysis Clerk. Dictation software, [employer], used which may contain error for [...] Service: Pharmacy Author Type: Pharmacist Filed: 01/24/17 1241 Date of Service: 01/24/17 1241 Status: Signed Paper Box Maker: Medina Gifford RPH (Pharmacist) Clinical Pharmacy Note: Renal Monitoring Ramona Oconnor 36 y.o. female Ht Readings from Last [...] medication orders and adjust accordingly. Medina Gifford [facility] 01/24/2017 12:41 PM Amrik Moreno MD - 01/24/2017 12:02 PM PDTFormatting of this note might be different from the or iginal. Progress Notes by Amrik Reyna MD at 01/24/17 1202 Author: Amrik Reyna MD Service: Nephrology Author Type: Physician Filed: 01/24/17 1222 Date of Service: 01/24/17 1202 Status: Signed Paper Box Maker: Amrik Reyna MD (Physician) PCP : [facility] LOS: 1 day Ramona Oconnor is a [...] C3 level. Free light chain ratio normal. Norris ging with kidney ultrasound from 10/25/15 showed normal sized kidneys. She initiated HOME ENERGY CONSULTANT wit h PD 10/28/15. Primary senior manager asset protection is Dr. Chi Essential HTN Anemia of [...] Keep in + balance. AMRIK REYNA MD 01/24/2017 Portions of my previous notes have been carried over for continuity of care. She was seen earlier in the day and charting was completed later after rounds. Dictation software, was [employer], used which may contain error for [...] Author: LUCILLE Zurita Service: (none) Author Type: Staff Respiratory Therapist Filed: 01/24/17924 Date of Service: 01/24/17916 Status: Signed Paper Box Maker: LUCILLE Zurita (Staff Respiratory Therapist) 01/24/17 09 Discharge Planning Evaluation Admitting Diagnosis abd wall [...] admit with cellulitis, abscess, CM team fannie l follow clinical course for needs Patient's PCP is: [facility] Patient's insurance:[employer] Coverage concerns: no concerns Medication coverage/concerns: no concerns Community resources utilized / needed: none at this time Assistance in transportation: fam can drive home Identification of any specific education / training: TBD Barriers to Discharge / Alternative housing needed: TBD Anticipated DCP: home with spouse, pending Clinicals course for needs Calvin Fisher onver patric Armando, Provider Unknown - 01/23/2017 10:41 PM PDT Progress Notes by Cedric Saleh RPH at 01/23/172240 Author: Cedric Saleh RPH Service: Pharmacy Author Type: Pharmacist Filed: 01/23/172240 Date of Service: 01/23/172240 Status: Signed Paper Box Maker: Cedric Saleh RPH (Pharmacist) Day 2 vanco- [...] Service: (none) Author Type: Registered Nurse Filed: 01/23/17 1758 Date of Service: 01/23/171755 Status: Signed Paper Box Maker: Marixa Juarez RN (Registered Nurse) VS stable throughout shift. Pt had 3 episodes of emesis today, IV zofran and IV phenergan given as ordered. Pt remains tired and weak and is c/o RLQ abdominal pain. PRN dilaudid gi oh with relief noted. Culture sent to lab from peritoneal insertion site and dressing caal ged by certified wellness program manager. Pt is to have peritoneal dialysis tonight. No other acute changes. Wi ll continue to monitor. Marixa Juarez RN osemarie monique, Shad Elliott MD - 01/23/2017 8:00 AM PDTFormatting of this note might be different f rom the original. Progress Notes by Shad Ba MD at 01/23/17799 Author: Shad Ba MD Service: Hospitalist Author Type: Physician Filed: 01/23/17 1537 Date of Service: 01/23/17799 Status: Signed Paper Box Maker: Shad Ba MD (Physician) [facility] Service: Hospitalist Progress Note [...] peritoneal dialysis ESRD (end stage renal disease) ([facility]) Abdominal pain, unspecified site Elevated lipase Obesity, [...] ESRD (end stage renal disease) ([facility]) (01/23/2017) Assessment: On peritoneal dialysis Plan: Consulted [...] and management as well as Computerized Physician Time Analysis Clerk. Dictation software, [employer], used which may contain error for [...] 01/23/17645 Date of Service: 01/23/17645 Status: Signed Paper Box Maker: Kerri Fraga RN (Registered Nurse) Patient rested comfortably overnight, vital signs stable, no acute changes to initial admis patric assessment. Pt has pain in right lower quadrant of abdomen; receiving Dilaudid with rel ief x1 dose. Hourly rounding was otherwise uneventful. 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 Kerri Fraga RN 01/23/2017 6:46 AM onver patric Transaction, Provider Unknown - 01/23/2017 2:51 AM PDT Pharmacy Note by Shelli Bustos RPH at 01/23/17250 Author: Shelli Bustos RPH Service: Pharmacy Author Type: Pharmacist Filed: 01/23/17250 Date of Service: 01/23/17250 Status: Signed Paper Box Maker: Shelli Bustos RPH (Pharmacist) Clinical Pharmacy Note: [...] Pharmacy Note by Shelli Bustos RPH at 01/23/17 024 Author: Shelli Bustos RPH Service: Pharmacy Author Type: Pharmacist Filed: 01/23/17241 Date of Service: 01/23/17241 Status: Signed Paper Box Maker: Shelli Bustos RPH (Pharmacist) Clinical Pharmacy Note: Renal Monitoring Height: 160 cm Weight: 87.7 kg Patient is on peritoneal dialysis. Pharmacy dosing for renal function per Dr. Pate. Will order the following dosage adjustments: Zosyn 2.25 g IV Q12H Pharmacy will continue to follow and adjust medications as needed. Shelli Bustos PharmJaylon 01/23/2017 2:42 AM docume nted in this encounter H&P Notes Alexx Pate MD - 01/23/2017 1:53 AM PDTFormatting of this note might be dif ferent from the original. H&P by Alexx Pate MD at 01/23/17 0153 Author: Alexx Pate MD Service: Hospitalist Author Type: Physician Filed: 01/23/17 1029 Date of Service: 01/23/17 015 Status: Signed Paper Box Maker: Alexx Pate MD (Physician) Related Notes: Original Note by Alexx Pate MD (Physician) filed at 01/23/17 0737 HISTORY AND PHYSICAL for Ramona Oconnor,female,1980,36 y.o. who is being admitted to the adult hospitalist service at [facility]. Date of Admission: 01/22/2017 Requesting Physician: [facility] Reason for Admission: Abdominal pain and cellulitis around peritoneal catheter. History Obtained From: patient Chief complaint: Abdominal pain. History of present illness: The patient is a 36 y.o. female with significant past medical h istory. Patient came today from [place] after evaluation at the [facility] for abdominal pain o mamta the last 2 days. Patient has end-stage renal disease, currently on dialysis, and peritoneal dialysis in [facility] for 1 year. Initial workup in our emergency room indicates she has subcutaneous collection and likely developing cellulitis around the entry of the peritoneal dialysis. Patient has n o fever but she has been taking Tylenol at home for her pain; that could easily mask a fever . Patient continues to have abdominal pain, primarily in the lower abdomen area around her s kin fold and pannus. She denies any trauma to the area. She typically does dialysis every ni ght for 10 hours. She has been referred to our emergency room since she has nephrology in to deb, Dr. Chi. The patient continued to have high level of pain and required more than 4 times Dilaudid, 1 mg each. Her at bedside. Patient currently afebrile. Blood pressure is stable. No e vidence of distress or tachycardia and no other significant complaint. Review of systems: (Other than mentioned in above HPI , patient also mentioned the followin g) Constitutional - negative HENT - negative Eyes - negative Respiratory - negative Cardiovascular - negative Gastrointestinal - negative Genitourinary - negative Musculoskeletal - negative Neurological - negative Hematologic - negative Psychiatric - negative Past medical history: Past Medical History Diagnosis Date Diverticulosis GERD (gastroesophageal reflux disease) Obesity Metabolic acidosis 10/28/2015 Hyperphosphatemia 10/28/2015 Itching 10/28/2015 Hypocalcemia 10/28/2015 Uremia 10/28/2015 Past surgical history: Past Surgical History Procedure Laterality Date Peritoneal catheter insertion N/A 10/28/2015 Procedure: LAPAROSCOPIC - PERITONEAL DIALYSIS CATH INSERTION; Surgeon: Mundo Ramos MD; L ocation: [facility]; Service: Vascular; Laterality: N/A; Immunizations: Influenza: Ordered Pneumoccocal: Ordered Home medications: Prior to Admission medications Medication Sig Start Date End Date Taking? Authorizing Provider ergocalciferol (DRISDOL) 35473 UNITS capsule Take 50,000 Units by mouth once a week. Yes Historical Provider ondansetron (ZOFRAN) 8 MG tablet Take 1 tablet by mouth every 8 (eight) hours as needed for Nausea. 12/27/16 Yes Santos Chi MD loratadine (CLARITIN) 10 MG tablet Take 10 mg by mouth daily. 01/23/17 Yes Historical Provi venkata omeprazole (PRILOSEC) 20 MG capsule Take 20 mg by mouth every morning before breakfast. Historical Provider Allergies: No Known Allergies Family history: History reviewed. No pertinent family history. Social history: History Alcohol Use 0.0 oz/week 0 Standard drinks or equivalent per week Comment: occ History Smoking status Former Smoker -- 0.25 packs/day Quit date: 10/10/2015 Smokeless tobacco Never Used History Drug Use No Vitals: Filed Vitals: 01/22/17 2134 01/22/17 2254 01/23/17 0016 01/23/17 0124 BP: 139/78 147/81 143/69 146/82 Pulse: 78 79 70 73 Temp: 98.8 F (37.1 C) TempSrc: Temporal Resp: Weight: SpO2: 99% 95% 99% 98% Physical exam: Well-appearing, AOx3, no acute distress HENT: atraumatic, mucus membranes moist, conjunctivae normal, neck supple, no JVD Heart: Regular rate and rhythm, no murmur, radial and dorsalis pedis pulses are palpable an d equal Lungs: Clear to auscultation without wheezes, rales, rhonci, good effort, no respiratory di stress, no accessory muscle use Abdomen: Soft, nontender, nondistended, +bowel sounds in all 4 quadrants +tender skin papul es around PD entry but no discharge or abscess. Extremities: No cyanosis, clubbing, tenderness, or edema Skin: No rash or lesion, normal skin turgor Neuro: No acute focal motor or sensory deficits. Data: CBC: Lab Results Component Value Date WBC 16.59* 01/22/2017 RBC 3.82 01/22/2017 HGB 11.0* 01/22/2017 HCT 32.8* 01/22/2017 MCV 85.9 01/22/2017 MCH 28.9 01/22/2017 MCHC 33.6 01/22/2017 RDW 43.8 01/22/2017 PLT 319 01/22/2017 MPV 7.0 01/22/2017 DIFFTYPE AUTOMATED 01/22/2017 CMP: Lab Results Component Value Date NA 136 01/22/2017 K 4.0 01/22/2017 CL 94* 01/22/2017 CO2 27 01/22/2017 ANIONGAP 19 01/22/2017 GLUF 104* 01/22/2017 BUN 62* 01/22/2017 CREATININE 16* 01/22/2017 BCR 4 01/22/2017 CA 9.7 01/22/2017 CA 6.1* 10/29/2015 PROT 7.9 01/22/2017 ALB 2.4* 01/22/2017 GLOB 5.5* 01/22/2017 BILITOT 0.3 01/22/2017 ALP 86 01/22/2017 AST 5* 01/22/2017 ALT 9* 01/22/2017 EGFR 3* 01/22/2017 PT/INR: Lab Results Component Value Date INR 1.0 10/26/2015 Assessment/Plan: PROBLEM LIST Principal Problem: Abdominal wall cellulitis Active Problems: UTI (urinary tract infection) Complication of peritoneal dialysis ESRD (end stage renal disease) ([facility]) Abdominal pain, unspecified site Elevated lipase Obesity, unspecified Gastroesophageal reflux disease without esophagitis 1. Abdominal pain and subcutaneous collection, likely small abscess around the peritoneal d ialysis entry. Patient will be started on antibiotics, vancomycin and Zosyn. ID consult for further recommendations. Nephrology consult for considering replacement or not of the perito aquilino dialysis shunt, if needed. Also wound care consult will be obtained. The patient curren tly hemodynamically stable and no evidence of hemodynamic instability. 2. Elevated lipase. Patient has no other symptoms to suggest pancreatitis. Could be related to nausea and dry heaves. Will repeat lipase in the morning and closely monitor on her lipa se level after IV hydration. 3. Urinary tract infection. Continue on her current antibiotic regimen. 4. End-stage renal disease. On peritoneal dialysis. Dr. Chi will be consulted in the morn ing. 5. Gastroesophageal reflux disease. Omeprazole 20 mg, our formulary Protonix 40 mg daily. 6. Other medical problems currently stable. 7. FULL CODE. 8. Time for admission 60 minutes. 9. Estimated hospital stay 2 nights. Date of admission: 01/23/2017 Code Status: Full code. Disposition: Admit to Medical Floor. I estimate that this patient will require at least 2 midnights of hospital care. Alexx Pate MD 01/23/2017 1:53 AM documente d in this encounter Consult Notes Conversion Transaction, Provider Unknown - 01/23/2017 1:38 PM PDTFormatting of this note m ight be different from the original. Consults by Rosario Bales RN at 01/23/17 1338 Author: Rosario Bales RN Service: Wound/Ostomy Care Author Type: Registered Nurse Filed: 01/23/17 1341 Date of Service: 01/23/178 Status: Signed Paper Box Maker: Rosario Bales RN (Registered Nurse) Consult Orders: 1. Wound Care Evaluation and Treat [[id number]] ordered by Alexx Pate MD at 01/23/17 0 150 [facility] Service: Wound Care Consult Note Hospital Day: LOS: 0 days Post-Op Day: * No surgery found * SUBJECTIVE Consulted for drainage from peritoneal dialysis port and breakdown on abdomen OBJECTIVE 01/23/17 1300 Wound Abrasion(s) Abdomen Date First Assessed/Time First Assessed: 01/23/17 1340 Wound Type: Abrasion(s) Location: Abdomen Pre-existing: Yes Drainage Amount None Wound/Incision Length 0.2 cm Wound/Incision Width 0.3 cm Dressing Applied Wound Gel;Hydrofiber with silver;Dry dressing (gauze and roll gauze) State of Healing Early/partial granulation Site Assessment Red;[place]-wound Assessment Dry;Intact Shape Irregular Closure None Non-staged Wound Description Partial thickness Treatments Cleansed;Site care Dressing Changed New Dressing Status Changed;Clean;Dry;Intact Follow Up Initial highway maintainer Eval 01/23/[address] maintainer [place] 01/30/17 PROBLEM LIST Principal Problem: Abdominal wall cellulitis Active Problems: UTI (urinary tract infection) Complication of peritoneal dialysis ESRD (end stage renal disease) (HCC) Abdominal pain, unspecified site Elevated lipase Obesity, unspecified Gastroesophageal reflux disease without esophagitis ASSESSMENT & PLAN removal of existing dressing visual inspection cleansing with NS solution application of clean dressing Thank you for this consult. Please call if there are any additional questions. Rosario Bales RN 1:38 PM 01/23/2017 Andres Larose MD - 01/23/2017 10:56 AM PDT Consult* by Andres Mejia MD at 01/23/17 2816 Author: Andres Mejia MD Service: Nephrology Author Type: Physician Filed: 01/23/171920 Date of Service: 01/23/17 105 Status: Signed Paper Box Maker: Andres Mejia MD (Physician) [facility] Problem List: Principal Problem: Abdominal wall cellulitis Active Problems: UTI (urinary tract infection) Complication of peritoneal dialysis ESRD (end stage renal disease) (HCC) Abdominal pain, unspecified site Elevated lipase Obesity, unspecified Gastroesophageal reflux disease without esophagitis I was asked by the hospital medicine team to see Ms. Oconnor in consult today. As the admit ting/consulting team is familiar with her case, I will not state her past history in detail. Briefly, she is a 36 y.o. female patient with history as delineated in the Past Medical & S urgical History sections. I was called in to evaluate her for an opinion regarding need for HOME ENERGY CONSULTANT Background: Patient has end-stage renal disease, currently on dialysis, and peritoneal dialysis in [facility] for more than a year. Initial workup in our emergency room indicates she has subcutaneous collection and likely developing cellulitis around the entry of the peritoneal dialysis. Perla carranza has no fever but she has been taking Tylenol at home for her pain; that could easily ma sk a fever. Patient continues to have abdominal pain, primarily in the lower abdomen area ar ound her skin fold and pannus. She denies any trauma to the area. She typically does dialysi s every night for 10 hours. Her senior manager asset protection is Dr. Chi. The patient continued to have high level of pain and required more than 4 times Dilaudid, 1 mg each. Her at bedside. Patient currently afebrile. Blood pressure is stable. No e vidence of distress or tachycardia and no other significant complaint. History & ROS obtained from : pt and chart review.. She says that she feels 'ok' today. No history of blurred vision tinnitus, headache, fever, chills, or cough. No nausea, vomiting , abdominal pain, diarrhea, melena, or hematochezia. No chest pain, palpitation, [...] systems were reviewed and were otherwise negative. cholecalciferol 2,000 Units Oral Daily heparin (porcine) 5000 unit/0.5mL 5,000 Units Subcutaneous 3 times per day pantoprazole 40 mg Oral QAM AC piperacillin-tazobactam 2.25 g Intravenous Q12H vancomycin 500 mg Intravenous See Admin Instructions I/O last 3 completed shifts: In: 301 [I.V.:251; IV Piggyback:50] Out: 50 [Urine:50] I/O this shift: In: 539 [I.V.:539] Out: - P.E. BP 132/70 mmHg | Pulse 84 | Temp(Src) 98.3 F (36.8 C) (Oral) | Resp 18 | Ht 1.6 m (5' 3 ") | Wt 87.726 kg (193 lb 6.4 oz) | BMI 34.27 kg/m2 | SpO2 98% | LMP 11/28/2016 General appearance: Pleasant, not in acute distress. [...] normal. Lab Results Component Value Date BUN 61* 01/23/2017 CREATININE 16.7* 01/23/2017 EGFR 3* 01/23/2017 NA 139 01/23/2017 K 4.2 01/23/2017 CL 95* 01/23/2017 CO2 27 01/23/2017 CA 9.2 01/23/2017 PHOS 7.6* 01/23/2017 MG 4.9* 01/23/2017 ALB 2.2* 01/23/2017 HGB 10.0* 01/23/2017 Assessment and recommendations Ms. Oconnor is a 36 y.o. female patient with ESRD on PD, CT shows infection, subcutaneous a round PD catheter . ESRD DC IV fluid PD tonight 5 cycles 10 hrs 2.5%/1.5% 2000 ml Infection I have submitted PD fluid for cell count/diff with stain and culture I have discussed CT findings with radiology and Dr Ramos HTN Controlled Anemia EPO with HD Bone mineral disease Phos elevated Phos binders Renal diet I discussed with the hospital medicine team the case at the time of this encounter. I spent 70 minutes today in interviewing & examining the patient, reviewing & updating the patient's chart, formulating a plan, in addition to patient education and discussions with t he primary/consulting team. Thank you for the opportunity to see this patient in consult today. Please do not hesitate to call me at any time with questions or concerns. ANDRES MEJIA MD FACP documented in this encounter ED Notes Conversion Transaction, Provider Unknown - 01/23/2017 2:02 AM PDTFormatting of this note m ight be different from the original. ED Notes by Renetta Chand RN at 01/23/17201 Author: Renetta Chand RN Service: (none) Author Type: Registered Nurse Filed: 01/23/17202 Date of Service: 01/23/17201 Status: Signed Paper Box Maker: Renetta Chand RN (Registered Nurse) Pt reports still not able to get medication list from her mother she will notify the nurse upstairs once she gets medication list from mother so it can be updated. Renetta Chand RN 01/23/17202 Marielle Pearson PA-C - 01/22/2017 8:40 PM PDTFormatting of this note might be different from the o riginal. ED Provider Notes by Marielle Cruz PA-C at 01/22/172039 Author: Marielle Maria L, PA-C Service: Emergency Department Author Type: Physician Rand Butting Machine Operator - Certified Filed: 01/23/17 0824 Date of Service: 01/22/172039 Status: Attested Paper Box Maker: Marielle Cruz PA-C (Physician Rand Butting Machine Operator - Certified) Cosigner: Hilton Curtis DO at 01/25/17935 Attestation signed by Hilton Curtis DO at 01/25/17935 I have reviewed the patient's chart. I supervised the APC. I was available for consultatio n during the care of the patient. Hilton Curtis DO Procedures [facility] 8TH FLO[address] [place] History of Present Illness Patient Identification Ramona Oconnor is a 36 y.o. female. Patient information was obtained from patient. History/Exam limitations: none. Patient presented to the Emergency Department Car Chief Complaint Chief Complaint Patient presents with Abdominal Pain pt has several abcesses on abdomen, near peritoneal dialysis catheter. pt send over from [place] to be seen at facility with nephrology. pt sees [facility] Patient presents for evaluation of ABD PAIN -BOILS The symptom onset was 3 days ago , and has had a worsening course. The pain is located next to peritoneal shunt , and is rated as 9/10 The pain is made worse by walking and moving and is relieved by nothing . The patient also complains of the following additional symptoms: nausea without vomiting . The past workup for the patient has included none The pertinent past history includes CKD o n peritoneal dialysis every night x1 year . 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 hasnt eaten all day. Not diabetic Dialysis every day at home, 10 hrs at night, peritoneal dialysis x1 year. Kidney failure wi th unknown etiology she does void on her own. Dialysis nurse noticed drainage from shunt sites, took a cotton sample yesterday and sent t o lab. 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 Authorizing Provider ergocalciferol (DRISDOL) 34251 UNITS capsule Take 50,000 Units by mouth once a week. His torical Provider loratadine (CLARITIN) 10 MG tablet Take 10 mg by mouth daily. Historical Provider omeprazole (PRILOSEC) 20 MG capsule Take 20 mg by mouth every morning before breakfast. Historical Provider ondansetron (ZOFRAN) 8 MG tablet Take 1 tablet by mouth every 8 (eight) hours as needed for Nausea. 12/27/16 Santos Chi MD No Known Allergies Social History Social History Marital Status: Spouse Name: N/A Number of Children: N/A Years of Education: N/A Occupational History Not on file. Social History Main Topics Smoking status: Former Smoker -- 0.25 packs/day Quit date: 10/10/2015 Smokeless tobacco: Never Used Alcohol Use: 0.0 oz/week 0 Standard drinks or equivalent per week Comment: occ Drug Use: No Sexual Activity: Partners: Male Other Topics Concern Not on file Social History Narrative History reviewed. No pertinent family history. ROS Review of Systems Constitutional: Negative for: fever, chills, fatigue, sweats weight loss HEENT: Negative for: symptoms Cardiovascular/Respiratory: Negative for: chest pain, shortness of breath, and cough Gastrointestinal: Negative for: vomiting, diarrhea, black or bloody stools Positive for: abd pain Genitourinary: Negative for: dysuria, hematuria, urinary problems Musculoskeletal: Negative for: myalgias and arthralgias Skin: Position for: lesions right sided abdomen Neuro and psych: Negative for: fainting, head injury, seizure, trouble walking Endocrine/Heme/Lymph: Negative for: swollen lymph nodes, easy bruising Physical Exam BP 139/82 mmHg | Pulse 92 | Temp(Src) 98.2 F (36.8 C) (Temporal) | Resp 18 | Wt 89.3 kg (196 lb 13.9 oz) | SpO2 99% Pulse Oximetry Interpretation: Normal General: Alert, in mod active distress,lying flat on her back, appears in pain, @ BS Eyes: Normal inspection, pupils equal and round, non-icteric ENT: Ears TMs without erythema Nose without congestion Pharynx without erythema Neck: Normal inspection Supple No lymphadenopathy Cardiovascular: Rate and rhythm normal Respiratory: Breath sounds normal bilaterally Abdomen: Morbid obesity, PD catheter taped at base, her lower panus has scattered lesions that are tender to touch, no swelling, no redness, but there is warmth to these areas, nothi ng is fluctuant, she has a 7cm width and 5cm length of firmness of RLQ area, abd itself is soft and not tender anywhere else Back: Normal inspection-no midline tenderness Skin: Color normal Warm and dry Neuro: No motor deficit No sensory deficit ED Course Medical Decision Making and Emergency Department Course ED Department Course Presents with boils on her abd that are painful and draining, near her peritoneal dialysis catheter of abdomen, pain 07/20, will require admission, will consult nephro eventually, fannie ramachandran need abd CT to check for deeper infection/abscess/ consider SBP. I have also discussed e testing course for Admission. Pain 07/20 2042 BP 172/79 mmHg | Pulse 85 | Temp(Src) 97.8 F (36.6 C) (Oral) | Resp 20 | Wt 89.3 kg (196 lb 13.9 oz) | SpO2 97% 2051 IV dilaudid and zofran ordered 2126 CBC WBC 16.59 , mild anemia H&H 11.0 & 32.8 2133 recheck no abd pain BP 139/78 mmHg | Pulse 78 | Temp(Src) 97.8 F (36.6 C) (Oral) | Resp 16 SpO2 99% 2148 lab called with critical value: Magnesium 5.0 I suspect as she's due for dialysis at 2199 2253 CMP abnormal glucose 104, creatinine 16, GFR 3 Lipase elevated at 1090, phos elevated at 6.6 I suspect most of these abnormal values because she is due for dialysis 2211 has vomited, remains nauseated, will give benadryl 25mg IV 2237 blood cultures ordered, Vanco IV ordered, urine screen WBC 50-100 1+ bacteria, urine c ulture pending 2244 I called pharmacist to make sure IV antibiotics on renal dosing 2254 BP 147/81 mmHg | Pulse 79 | Temp(Src) 98.8 F (37.1 C) (Temporal) | Resp 16 | Wt 8 9.3 kg (196 lb 13.9 oz) | SpO2 95% [address] Curtis, he has reviewed all her abnormal lab values and marta re that pt does peritoneal dialysis every night for [address] abd/pelvis non contras t, order placed [address] results - pt and spouse notified. Dr curtis notified. Bed request, hospitalist paged [phone] bed request made Pain 04/19, additional IV dilaudid 0045 Dr Pate called back, case discussed, he will see pt Records Reviewed Nursing notes. Labs & Radiology Results Laboratory Evaluation Results Procedure Component Value Ref Range Date/Time Septic Lactic Acid [[id number]] Collected: 01/22/172349 Order Status: Completed Updated: 01/23/1727 LACTIC ACID 0.9 0.4 - 2.0 mmol/L Blood Culture Set 1 [[id number]] Collected: 01/22/172219 Order Status: Sent Specimen Information: Blood from Blood, peripheral draw Updated: 0 01/23/1727 Blood Culture Set 2 [[id number]] Collected: 01/22/172222 Order Status: Sent Specimen Information: Blood from Blood, peripheral draw Updated: 0 01/23/1727 MRSA by PCR [[id number]] Collected: 01/22/172134 Order Status: Completed Specimen Information: Nasopharyngeal from Nares(Nose) Updated: 01/22/172299 SOURCE NARES(NOSE) MRSA PCR NEGATIVE NEGATIVE Urinalysis (reflex to microscopic/reflex to culture) [[id number]] (Abnormal) Collected: 01/22/172208 Order Status: Completed Specimen Information: Urine, Clean Catch Updated: 01/22/17 22 26 COLOR UA YELLOW CLARITY HAZY Specific [place], UA 1.013 1.002 - 1.030 LEUKOCYTE ESTERASE SMALL (A) NEGATIVE NITRITE NEGATIVE NEGATIVE UROBILINOGEN NORMAL <1.1 mg/dL PROTEIN >500 (A) NEGATIVE mg/dL PH,URINE 9.0 (H) 5.0 - 8.0 BLOOD SMALL (A) NEGATIVE KETONES NEGATIVE NEGATIVE mg/dL BILIRUBIN NEGATIVE NEGATIVE GLUCOSE 150 (A) NEGATIVE mg/dL WBC 50-100 0 - 5 /hpf RBC 11-15 0 - 5 /hpf BACTERIA 1+ (A) NONE SEEN EPITHELIAL 50-100 /lpf Mucus, UA 1+ Lipase [[id number]] (Abnormal) Collected: 01/22/172107 Order Status: Completed Specimen Information: Blood Updated: 01/22/172149 LIPASE 1090 (H) 73 - 393 U/L Magnesium [[id number]] (Abnormal) Collected: 01/22/172107 Order Status: Completed Updated: 01/22/172149 MAGNESIUM 5.0 (HH) 1.7 - 2.4 mg/dL Phosphorus [[id number]] (Abnormal) Collected: 01/22/172107 Order Status: Completed Updated: 01/22/172149 PHOSPHORUS 6.6 (H) 2.3 - 4.8 mg/dL Comprehensive metabolic panel [[id number]] (Abnormal) Collected: 01/22/172107 Order Status: Completed Specimen Information: Blood Updated: 01/22/172149 SODIUM 136 135 - 145 mmol/L POTASSIUM 4.0 3.5 - 4.9 mmol/L CHLORIDE 94 (L) 99 - 109 mmol/L CO2 27 23 - 32 mmol/L ANION GAP AGAP 19 5 - 20 mmol/L GLUCOSE 104 (H) 65 - 99 mg/dL BUN 62 (H) 8 - 25 mg/dL CREATININE 16 (H) 0.50 - 1.00 mg/dL BUN/CREAT 4 CALCIUM 9.7 8.5 - 10.5 mg/dL TOTAL PROTEIN 7.9 6.3 - 8.2 g/dL Albumin 2.4 (L) 3.6 - 5.0 g/dL GLOBULIN 5.5 (H) 1.3 - 4.9 g/dL A/G 0.4 (L) 1.0 - 2.4 TBIL 0.3 0.1 - 1.5 mg/dL ALK PHOS 86 35 - 115 U/L AST 5 (L) 10 - 45 U/L ALT 9 (L) 10 - 65 U/L EGFR 3 (L) >60 mL/min/1.73m2 CBC W/Auto Diff (Reflex to Manual) [[id number]] (Abnormal) Collected: 01/22/172107 Order Status: Completed Specimen Information: Blood Updated: 01/22/172123 WBC 16.59 (H) 3.80 - 11.00 K/uL RBC 3.82 3.70 - 5.10 M/uL HGB 11.0 (L) 11.3 - 15.5 g/dL HCT 32.8 (L) 34.0 - 46.0 % MCV 85.9 80.0 - 100.0 fl MCH 28.9 27.0 - 34.0 pg MCHC 33.6 32.0 - 35.5 g/dL RDW SD 43.8 37 - 53 fl PLT 319 150 - 400 K/uL MPV 7.0 fl DIFF TYPE AUTOMATED NEUTROPHILS 79.91 % LYMPHOCYTES 10.43 % MONOCYTES 6.18 % EOSINOPHILS 3.05 % BASOPHILS 0.43 % NEUTROPHILS ABS 13.26 (H) 1.90 - 7.40 K/uL LYMPHOCYTES ABS 1.73 1.00 - 3.90 K/uL MONOCYTES ABS 1.03 (H) 0.00 - 0.80 K/uL EOSINOPHILS ABS 0.51 (H) 0.00 - 0.50 K/uL BASOPHILS ABS 0.07 0.00 - 0.10 K/uL Radiology and EKG Evaluation Imaging Results CT Abdomen & Pelvis without contrast (Final result) Result time: 01/22/17 23:55:12 Final result by Rad Results In [place] (01/22/17 23:55:12) Impression: 1. Small amount of fluid or soft tissue density adjacent to the peritoneal dialysis elenita ter within the subcutaneous tissues of the ventral abdomen, possibly representing infection. No intraabdominal or pelvic abscess collection is demonstrated. 2. Small amount of free pelvic fluid. Nonspecific slightly hyperdense area is seen depende ntly within the fluid on the right, which may represent proteinaceous or hemorrhagic materia l. 3. Left adrenal nodule which is low-attenuation, favoring adenoma. Narrative: RAMONA OCONNOR [address] ABDOMEN PELVIS WO CONTRAST 01/22/2017 11:27 PM INDICATION: Evaluate for abdominal wall abscess, kidney failure with peritoneal dialysis COMPARISON: None. TECHNIQUE: 5-mm axial images were acquired through the abdomen and pelvis. No oral or IV co ntrast was used. Dose reduction techniques were used including automated exposure control, i terative reconstruction technique, and/or automated adjustable mAs based on patient size. FINDINGS: Limited evaluation of the lung bases demonstrates no contributory finding. The unenhanced liver, gallbladder, pancreas, and spleen demonstrate no acute findings. Left adrenal nodule measuring 1 cm measuring low in attenuation, favoring adenoma (series 3, norris ge 25). . Kidneys are without significant calculi or hydronephrosis. Mild bilateral perinephric stran ding. Abdominal aorta is nonaneurysmal. No abnormal wall thickening or evidence of obstruction is demonstrated within the small or large bowel. There is colonic diverticulosis without evidence of acute diverticulitis. Th e appendix is within normal limits. A small amount of free pelvic fluid is present, with a 1.5 cm of slightly increased hyperde nsity on the right (series 3, image 73). Peritoneal dialysis catheter is noted coiling superior to the bladder. There is a small trudi unt of soft tissue or fluid density seen along the tract within the subcutaneous tissues adin suring up to 7.5 cm in length and 1.7 cm in width (series 5B, images 17 through 19). No intr a-abdominal abscess is demonstrated. No enlarged lymph nodes in the abdomen or pelvis by CT criteria. The bladder is collapsed and not well evaluated.. No abnormal pelvic fluid or masses are demonstrated. No acute osseous abnormalities. Diagnosis & Disposition ED Diagnoses Final diagnoses Cellulitis of abdomen adjacent to peritoneal dialysis catheter CKD (chronic kidney disease), unspecified stage Acute cystitis without hematuria Disposition: ED Disposition Admit/Observation Requested Unit:: Acute Care Bed request special needs: Dialysis Diagnosis: Abd wall cellulitis adjacent peritoneal catheter CKD Marielle Cruz PA-C 01/23/17 0824 Hilton Curtis DO 01/25/17 0936 documented in this e ncounter Miscellaneous Notes Plan of Care - Conversion Transaction, Provider Unknown - 01/25/2017 12:44 AM PDT Plan of Care by Maria Del Rosario Weston RN at 01/25/1743 Author: Maria Del Rosario Weston RN Service: (none) Author Type: Registered Nurse Filed: 01/25/1743 Date of Service: 01/25/1743 Status: Signed Paper Box Maker: Maria Del Rosario Weston RN (Registered Nurse) Daily Care Daily care needs are met Progressing Pain Patient's pain/discomfort is manageable Progressing Risk for Falls No falls during hospitalization Progressing Safety Patient will be injury free during hospitalization Progressing lan o f Care - Conversion Transaction, Provider Unknown - 01/23/2017 11:31 PM PDTFormatting of thi s note might be different from the original. Plan of Care by Maria Del Rosario Weston RN at 01/23/172330 Author: Maria Del Rosario Weston RN Service: (none) Author Type: Registered Nurse Filed: 01/23/172330 Date of Service: 01/23/172330 Status: Signed Paper Box Maker: Maria Del Rosario Weston RN (Registered Nurse) Daily Care Daily care [...] in this encounter Results External Lab: CBC (01/25/2017 4:14 AM PDT) + + + [...] | | | | [facility], [address] | | | | | | [place] | | | | | | [address] | | | | + + + + + + | Red Blood | 3.30 (L)Comment: Testing | 3.70 - 5.10 | EXTERNAL | | | Cells | performed at [facility], [address] | M/uL | LAB | | | Counted | [address], | | | | | | [place] [address] | | | | + + + + + + | Hemoglobin | 9.5 (L)Comment: Testing | 11.3 - 15.5 | EXTERNAL | | | | performed at [facility], [address] | g/dL | LAB | | | | [address], | | | | | | [place] [address] | | | | + + + + + + | Hematocrit, | 28.3 (L)Comment: Testing | 34.0 - 46.0 % | EXTERNAL | | | POC | performed at [facility], [address] | | LAB | | | | [address], | | | | | | [place] [address] | | | | + + + + + + | MCV | 85.6Comment: Testing | 80.0 - 100.0 fl | EXTERNAL | | | | performed at [facility], [address] | | LAB | | | | [address], | | | | | | [place] [address] | | | | + + + + + + | MCH | 28.6Comment: Testing | 27.0 - 34.0 pg | EXTERNAL | | | | performed at [facility], [address] | | LAB | | | | [address], | | | | | | [place] [address] | | | | + + + + + + | MCHC | 33.4Comment: Testing | 32.0 - 35.5 | EXTERNAL | | | | performed at [facility], [address] | g/dL | LAB | | | | [address], | | | | | | [place] [address] | | | | + + + + + + | RDW-CV | 41.6Comment: Testing | 37 - 53 fl | EXTERNAL | | | | performed at [facility], [address] | | LAB | | | | [address], | | | | | | [place] [address] | | | | + + + + + + | Platelet | 338Comment: Testing | 150 - 400 K/uL | EXTERNAL | | | Count | performed at [facility], [address] | | LAB | | | Plasma | [address], | | | | | | [place] [address] | | | | + + + + + + | MPV | 7.4Comment: Testing | fl | EXTERNAL | | | | performed at [facility], [address] | | LAB | | | | [address], | | | | | | [place] [address] | | | | + + + + + + | Differentia | AUTOMATEDComment: | | EXTERNAL | | | l Type | Testing performed at | | LAB | | | | [facility], [address] | | | | | | [place] | | | | | | [address] | | | | + + + + + + | % Segmented | 72.22Comment: Testing | % | EXTERNAL | | | | performed at [facility], [address] | | LAB | | | Neutrophils | [address], | | | | | | [place] [address] | | | | + + + + + + | % | 15.07Comment: Testing | % | EXTERNAL | | | Lymphocytes | performed at [facility], [address] | | LAB | | | | [address], | | | | | | [place] [address] | | | | + + + + + + | % Monocytes | 8.23Comment: Testing | % | EXTERNAL | | | | performed at [facility], [address] | | LAB | | | | [address], | | | | | | [place] [address] | | | | + + + + + + | % | 3.90Comment: Testing | % | EXTERNAL | | | Eosinophils | performed at [facility], [address] | | LAB | | | | [address], | | | | | | [place] [address] | | | | + + + + + + | % Basophils | 0.58Comment: Testing | % | EXTERNAL | | | | performed at [facility], [address] | | LAB | | | [address], | | | | | | [place] [address] | | | | + + + + + + | Absolute | 8.01 (H)Comment: Testing | 1.90 - 7.40 | EXTERNAL | | | Segmented | performed at [facility], [address] | K/uL | LAB | | | Neutrophils | [address], | | | | | | [place] [address] | | | | + + + + + + | Absolute | 1.67Comment: Testing | 1.00 - 3.90 | EXTERNAL | | | Lymphocytes | performed at [facility], [address] | K/uL | LAB | | | | [address], | | | | | | [place] [address] | | | | + + + + + + | Absolute | 0.91 (H)Comment: Testing | 0.00 - 0.80 | EXTERNAL | | | Monocytes | performed at [facility], [address] | K/uL | LAB | | | | [address], | | | | | | [place] [address] | | | | + + + + + + | Absolute | 0.43Comment: Testing | 0.00 - 0.50 | EXTERNAL | | | Eosinophils | performed at [facility], [address] | K/uL | LAB | | | | [address], | | | | | | [place] [address] | | | | + + + + + + | Absolute | 0.06Comment: Testing | 0.00 - 0.10 | EXTERNAL | | | Basophils | performed at [facility], [address] | K/uL | LAB | | | | [address], | | | | | | [place] [address] | | | | + + + [...] EXTERNAL | | | | performed at [facility], [address] | | LAB | | | | [address], | | | | | | [place] [address] | | | | + + + [...] EXTERNAL | | | | performed at [facility], [address] | | LAB | | | | [address], | | | | | | [place] [address] | | | | + + + [...] EXTERNAL | | | | performed at [facility];[address] | | LAB | | | | [address];[place], [place] | | | | | | [address] | | | | + + + [...] | | | Random | performed at [facility] | | LAB | | | | [address];[place], [place] | | | | | | [address] | | | | + + + [...] | | | | | [place] [address] | | | | + + + + + + | K | 3.7Comment: Testing | 3.5 - 4.9 | EXTERNAL | | | | performed at [facility], [address] | mmol/L | LAB | | | | [address], | | | | | | [place] [address] | | | | + + + + + + | Cl | 95 (L)Comment: Testing | 99 - 109 mmol/L | EXTERNAL | | | | performed at [facility], [address] | | LAB | | | | [address], | | | | | | [place] [address] | | | | + + + + + + | CO2 | 31Comment: Testing | 23 - 32 mmol/L | EXTERNAL | | | | performed at [facility], [address] | | LAB | | | | [address], | | | | | | [place] [address] | | | | + + + + + + | Anion Gap | 14Comment: Testing | 5 - 20 mmol/L | EXTERNAL | | | | performed at [facility], [address] | | LAB | | | | [address], | | | | | | [place] [address] | | | | + + + + + + | Glucose, | 93Comment: Testing | 65 - 99 mg/dL | EXTERNAL | | | Fasting | performed at [facility], [address] | | LAB | | | | [address], | | | | | | [place] [address] | | | | + + + + + + | BUN | 50 (H)Comment: Testing | 8 - 25 mg/dL | EXTERNAL | | | | performed at [facility], [address] | | LAB | | | | [address], | | | | | | [place] [address] | | | | + + + + + + | Creatinine | 14.5 (H)Comment: Testing | 0.50 - 1.00 | EXTERNAL | | | | performed at [facility], [address] | mg/dL | LAB | | | | [address], | | | | | | [place] [address] | | | | + + + + + + | BUN/Creatin | 3Comment: Testing | | EXTERNAL | | | ine Ratio | performed at [facility], [address] | | LAB | | | | [address], | | | | | | [place] [address] | | | | + + + + + + | Calcium | 8.2 (L)Comment: Testing | 8.5 - 10.5 | EXTERNAL | | | | performed at [facility], [address] | mg/dL | LAB | | | | [address], | | | | | | [place] [address] | | | | + + + + + + | Protein, | 6.6Comment: Testing | 6.3 - 8.2 g/dL | EXTERNAL | | | Total | performed at [facility], [address] | | LAB | | | | [address], | | | | | | [place] [address] | | | | + + + + + + | Albumin | 2.0 (L)Comment: Testing | 3.6 - 5.0 g/dL | EXTERNAL | | | | performed at [facility], [address] | | LAB | | | | [address], | | | | | | [place] [address] | | | | + + + + + + | Globulin | 4.6Comment: Testing | 1.3 - 4.9 g/dL | EXTERNAL | | | | performed at [facility], [address] | | LAB | | | | [address], | | | | | | [place] [address] | | | | + + + + + + | A/G Ratio | 0.4 (L)Comment: Testing | 1.0 - 2.4 | EXTERNAL | | | | performed at [facility], [address] | | LAB | | | | [address], | | | | | | [place] [address] | | | | + + + + + + | Bilirubin | 0.3Comment: Testing | 0.1 - 1.5 mg/dL | EXTERNAL | | | Total | performed at [facility], [address] | | LAB | | | | [address], | | | | | | [place] [address] | | | | + + + + + + | ALP, | 66Comment: Testing | 35 - 115 U/L | EXTERNAL | | | External | performed at [facility], [address] | | LAB | | | | [address], | | | | | | [place] [address] | | | | + + + + + + | AST | 6 (L)Comment: Testing | 10 - 45 U/L | EXTERNAL | | | | performed at [facility], [address] | | LAB | | | | [address], | | | | | | [place] [address] | | | | + + + + + + | ALT | 8 (L)Comment: Testing | 10 - 65 U/L | EXTERNAL | | | | performed at [facility], [address] | | LAB | | | | [address], | | | | | | [place] [address] | | | | + + + [...] | | | | | | [address], | | | | | | [place] [address] | | | | + + + [...] | | | | [facility], [address] [facility] | | | | | | [place] | | | | | | [address] | | | | + + + + + + | Red Blood | 3.32 (L)Comment: Testing | 3.70 - 5.10 | EXTERNAL | | | Cells | performed at [facility], [address] | M/uL | LAB | | | Counted | [address], | | | | | | [place] [address] | | | | + + + + + + | Hemoglobin | 9.6 (L)Comment: Testing | 11.3 - 15.5 | EXTERNAL | | | | performed at [facility], [address] | g/dL | LAB | | | | [address], | | | | | | [place] [address] | | | | + + + + + + | Hematocrit, | 28.2 (L)Comment: Testing | 34.0 - 46.0 % | EXTERNAL | | | POC | performed at [facility], [address] | | LAB | | | | [address], | | | | | | [place] [address] | | | | + + + + + + | MCV | 85.0Comment: Testing | 80.0 - 100.0 fl | EXTERNAL | | | | performed at [facility], [address] | | LAB | | | | [address], | | | | | | [place] [address] | | | | + + + + + + | MCH | 28.8Comment: Testing | 27.0 - 34.0 pg | EXTERNAL | | | | performed at [facility], [address] | | LAB | | | | [address], | | | | | | [place] [address] | | | | + + + + + + | MCHC | 33.9Comment: Testing | 32.0 - 35.5 | EXTERNAL | | | | performed at [facility], [address] | g/dL | LAB | | | | [address], | | | | | | [place] [address] | | | | + + + + + + | RDW-CV | 41.1Comment: Testing | 37 - 53 fl | EXTERNAL | | | | performed at [facility], [address] | | LAB | | | | [address], | | | | | | [place] [address] | | | | + + + + + + | Platelet | 346Comment: Testing | 150 - 400 K/uL | EXTERNAL | | | Count | performed at [facility], [address] | | LAB | | | Plasma | [address], | | | | | | [place] [address] | | | | + + + + + + | MPV | 7.6Comment: Testing | fl | EXTERNAL | | | | performed at [facility], [address] | | LAB | | | | [address], | | | | | | [place] [address] | | | | + + + + + + | Differentia | AUTOMATEDComment: | | EXTERNAL | | | l Type | Testing performed at | | LAB | | | | [facility], [address] | | | | | | [place] | | | | | | [address] | | | | + + + + + + | % Segmented | 75.80Comment: Testing | % | EXTERNAL | | | | performed at [facility], [address] | | LAB | | | Neutrophils | [address], | | | | | | [place] [address] | | | | + + + + + + | % | 12.67Comment: Testing | % | EXTERNAL | | | Lymphocytes | performed at [facility], [address] | | LAB | | | | [address], | | | | | | [place] [address] | | | | + + + + + + | % Monocytes | 7.61Comment: Testing | % | EXTERNAL | | | | performed at [facility], [address] | | LAB | | | | [address], | | | | | | [place] [address] | | | | + + + + + + | % | 3.38Comment: Testing | % | EXTERNAL | | | Eosinophils | performed at [facility], [address] | | LAB | | | | [address], | | | | | | [place] [address] | | | | + + + + + + | % Basophils | 0.54Comment: Testing | % | EXTERNAL | | | | performed at [facility], [address] | | LAB | | | | [address], | | | | | | [place] [address] | | | | + + + + + + | Absolute | 9.49 (H)Comment: Testing | 1.90 - 7.40 | EXTERNAL | | | Segmented | performed at [facility], [address] | K/uL | LAB | | | Neutrophils | [address], | | | | | | [place] [address] | | | | + + + + + + | Absolute | 1.59Comment: Testing | 1.00 - 3.90 | EXTERNAL | | | Lymphocytes | performed at [facility], [address] | K/uL | LAB | | | | [address], | | | | | | [place] [address] | | | | + + + + + + | Absolute | 0.95 (H)Comment: Testing | 0.00 - 0.80 | EXTERNAL | | | Monocytes | performed at [facility], [address] | K/uL | LAB | | | | [address], | | | | | | [place] [address] | | | | + + + + + + | Absolute | 0.42Comment: Testing | 0.00 - 0.50 | EXTERNAL | | | Eosinophils | performed at [facility], [address] | K/uL | LAB | | | | [address], | | | | | | [place] [address] | | | | + + + + + + | Absolute | 0.07Comment: Testing | 0.00 - 0.10 | EXTERNAL | | | Basophils | performed at [facility], [address] | K/uL | LAB | | | | [address], | | | | | | [place] [address] | | | | + + + [...] EXTERNAL | | | | performed at [facility], [address] | | LAB | | | | [address], | | | | | | [place] [address] | | | | + + + [...] | | | | | [place] [address] | | | | + + + [...] EXTERNAL | | | | performed at [facility];[address] | | LAB | | | | [address] [facility];[place] | | | | | | [address] | | | | + + + [...] | | | | | [place] [address] | | | | + + + + + + | K | 3.9Comment: Testing | 3.5 - 4.9 | EXTERNAL | | | | performed at [facility], [address] | mmol/L | LAB | | | | [address], | | | | | | [place] [address] | | | | + + + + + + | Cl | 96 (L)Comment: Testing | 99 - 109 mmol/L | EXTERNAL | | | | performed at [facility], [address] | | LAB | | | | [address], | | | | | | [place] [address] | | | | + + + + + + | CO2 | 30Comment: Testing | 23 - 32 mmol/L | EXTERNAL | | | | performed at [facility], [address] | | LAB | | | | [address], | | | | | | [place] [address] | | | | + + + + + + | Anion Gap | 16Comment: Testing | 5 - 20 mmol/L | EXTERNAL | | | | performed at [facility], [address] | | LAB | | | | [address], | | | | | | [place] [address] | | | | + + + + + + | Glucose, | 101 (H)Comment: Testing | 65 - 99 mg/dL | EXTERNAL | | | Fasting | performed at [facility], [address] | | LAB | | | | [address], | | | | | | [place] [address] | | | | + + + + + + | BUN | 57 (H)Comment: Testing | 8 - 25 mg/dL | EXTERNAL | | | | performed at [facility], [address] | | LAB | | | | [address], | | | | | | [place] [address] | | | | + + + + + + | Creatinine | 15.3 (H)Comment: Testing | 0.50 - 1.00 | EXTERNAL | | | | performed at [facility], [address] | mg/dL | LAB | | | | [address], | | | | | | [place] [address] | | | | + + + + + + | BUN/Creatin | 4Comment: Testing | | EXTERNAL | | | ine Ratio | performed at [facility], [address] | | LAB | | | | [address], | | | | | | [place] [address] | | | | + + + + + + | Calcium | 8.7Comment: Testing | 8.5 - 10.5 | EXTERNAL | | | | performed at [facility], [address] | mg/dL | LAB | | | | [address], | | | | | | [place] [address] | | | | + + + + + + | Protein, | 6.6Comment: Testing | 6.3 - 8.2 g/dL | EXTERNAL | | | Total | performed at [facility], [address] | | LAB | | | | [address], | | | | | | [place] [address] | | | | + + + + + + | Albumin | 2.0 (L)Comment: Testing | 3.6 - 5.0 g/dL | EXTERNAL | | | | performed at [facility], [address] | | LAB | | | | [address], | | | | | | [place] [address] | | | | + + + + + + | Globulin | 4.6Comment: Testing | 1.3 - 4.9 g/dL | EXTERNAL | | | | performed at [facility], [address] | | LAB | | | | [address], | | | | | | [place] [address] | | | | + + + + + + | A/G Ratio | 0.4 (L)Comment: Testing | 1.0 - 2.4 | EXTERNAL | | | | performed at [facility], [address] | | LAB | | | | [address], | | | | | | [place] [address] | | | | + + + + + + | Bilirubin | 0.4Comment: Testing | 0.1 - 1.5 mg/dL | EXTERNAL | | | Total | performed at [facility], [address] | | LAB | | | | [address], | | | | | | [place] [address] | | | | + + + + + + | ALP, | 73Comment: Testing | 35 - 115 U/L | EXTERNAL | | | External | performed at [facility], [address] | | LAB | | | [address], | | | | | | [place] [address] | | | | + + + + + + | AST | 7 (L)Comment: Testing | 10 - 45 U/L | EXTERNAL | | | | performed at [facility], [address] | | LAB | | | | [address], | | | | | | [place] [address] | | | | + + + + + + | ALT | 9 (L)Comment: Testing | 10 - 65 U/L | EXTERNAL | | | | performed at [facility], [address] | | LAB | | | | [address], | | | | | | [place] [address] | | | | + + + [...] | | | | | | at [facility], [address] | | | | | | [address] [facility], | | | | | | [place] [address] | | | | + + + [...] | | | Random | performed at [facility] | | LAB | | | | [address] [facility];[place], [place] | | | | | | [address] | | | | + + + [...] LAB | | PERITONEAL Testing performed at [facility] [address] | | | COLOR COLORLESS Testing | | | performed at [facility] [address] [address] APPEARANCE | | | HAZY Testing performed at | | | [facility] [address] [address] RBC'S | | | <[address] Testing performed at [facility] [address] | | [address];[place] [address] TOTAL NUCLEATED CELLS 426 | | | Testing performed at [facility] [address] [address] | | | NEUTROPHILS 81 Testing | | | performed at [facility] [address] LYMPHOCYTES | | | 5 Testing performed at | | | [facility] [address] [address] MONOCYTES/MACROPHAGES | | | 14 Testing performed at [facility] [address] | | [address];[place] [address] CELLS COUNTED | | | 100 Testing performed at [facility];[address] [place] [address];[place], [place] | | | [address] | | + + + + +---------+ [...] + + | Endy Rad Conversion - 06/24/2019 3:39 AM PDT [...] | | | [facility], [address] [facility] | | | | | | [place] | | | | | | [address] | | | | + + + + + + | Red Blood | 3.58 (L)Comment: Testing | 3.70 - 5.10 | EXTERNAL | | | Cells | performed at [facility], [address] | M/uL | LAB | | | Counted | [address], | | | | | | [place] [address] | | | | + + + + + + | Hemoglobin | 10.0 (L)Comment: Testing | 11.3 - 15.5 | EXTERNAL | | | | performed at [facility], [address] | g/dL | LAB | | | | [address], | | | | | | [place] [address] | | | | + + + + + + | Hematocrit, | 31.0 (L)Comment: Testing | 34.0 - 46.0 % | EXTERNAL | | | POC | performed at [facility], [address] | | LAB | | | | [address], | | | | | | [place] [address] | | | | + + + + + + | MCV | 86.5Comment: Testing | 80.0 - 100.0 fl | EXTERNAL | | | | performed at [facility], [address] | | LAB | | | [address], | | | | | | [place] [address] | | | | + + + + + + | MCH | 28.0Comment: Testing | 27.0 - 34.0 pg | EXTERNAL | | | | performed at [facility], [address] | | LAB | | | | [address], | | | | | | [place] [address] | | | | + + + + + + | MCHC | 32.4Comment: Testing | 32.0 - 35.5 | EXTERNAL | | | | performed at [facility], [address] | g/dL | LAB | | | | [address], | | | | | | [place] [address] | | | | + + + + + + | RDW-CV | 43.3Comment: Testing | 37 - 53 fl | EXTERNAL | | | | performed at [facility], [address] | | LAB | | | | [address], | | | | | | [place] [address] | | | | + + + + + + | Platelet | 334Comment: Testing | 150 - 400 K/uL | EXTERNAL | | | Count | performed at [facility], [address] | | LAB | | | Plasma | [address], | | | | | | [place] [address] | | | | + + + + + + | MPV | 7.5Comment: Testing | fl | EXTERNAL | | | | performed at [facility], [address] | | LAB | | | | [address], | | | | | | [place] [address] | | | | + + + + + + | Differentia | AUTOMATEDComment: | | EXTERNAL | | | l Type | Testing performed at | | LAB | | | | [facility], [address] | | | | | | [place] | | | | | | [address] | | | | + + + + + + | % Segmented | 76.93Comment: Testing | % | EXTERNAL | | | | performed at [facility], [address] | | LAB | | | Neutrophils | [address], | | | | | | [place] [address] | | | | + + + + + + | % | 11.69Comment: Testing | % | EXTERNAL | | | Lymphocytes | performed at [facility], [address] | | LAB | | | | [address], | | | | | | [place] [address] | | | | + + + + + + | % Monocytes | 7.51Comment: Testing | % | EXTERNAL | | | | performed at [facility], [address] | | LAB | | | | [address], | | | | | | [place] [address] | | | | + + + + + + | % | 3.48Comment: Testing | % | EXTERNAL | | | Eosinophils | performed at [facility], [address] | | LAB | | | | [address], | | | | | | [place] [address] | | | | + + + + + + | % Basophils | 0.39Comment: Testing | % | EXTERNAL | | | | performed at [facility], [address] | | LAB | | | | [address], | | | | | | [place] [address] | | | | + + + + + + | Absolute | 10.77 (H)Comment: | 1.90 - 7.40 | EXTERNAL | | | Segmented | Testing performed at | K/uL | LAB | | | Neutrophils | [facility], [address] | | | | | | [place] | | | | | | [address] | | | | + + + + + + | Absolute | 1.64Comment: Testing | 1.00 - 3.90 | EXTERNAL | | | Lymphocytes | performed at [facility], [address] | K/uL | LAB | | | | [address], | | | | | | [place] [address] | | | | + + + + + + | Absolute | 1.05 (H)Comment: Testing | 0.00 - 0.80 | EXTERNAL | | | Monocytes | performed at [facility], [address] | K/uL | LAB | | | | [address], | | | | | | [place] [address] | | | | + + + + + + | Absolute | 0.49Comment: Testing | 0.00 - 0.50 | EXTERNAL | | | Eosinophils | performed at [facility], [address] | K/uL | LAB | | | | [address], | | | | | | [place] [address] | | | | + + + + + + | Absolute | 0.05Comment: Testing | 0.00 - 0.10 | EXTERNAL | | | Basophils | performed at [facility], [address] | K/uL | LAB | | | | [address], | | | | | | [place] [address] | | | | + + + [...] EXTERNAL | | | | performed at [facility], [address] | uIU/mL | LAB | | | | [address], | | | | | | [place] [address] | | | | + + + [...] [place], | | | | | | [place] [address] | | | | + + + [...] EXTERNAL | | | | performed at [facility], [address] | | LAB | | | | [address], | | | | | | [place] [address] | | | | + + + [...] EXTERNAL | | | | performed at [facility];[address] | | LAB | | | | [facility], [place] | | | | | | [address] | | | | + + + [...] | | | | | [place] [address] | | | | + + + + + + | K | 4.2Comment: Testing | 3.5 - 4.9 | EXTERNAL | | | | performed at [facility], [address] | mmol/L | LAB | | | | [address], | | | | | | [place] [address] | | | | + + + + + + | Cl | 95 (L)Comment: Testing | 99 - 109 mmol/L | EXTERNAL | | | | performed at [facility], [address] | | LAB | | | [address], | | | | | | [place] [address] | | | | + + + + + + | CO2 | 27Comment: Testing | 23 - 32 mmol/L | EXTERNAL | | | | performed at [facility], [address] | | LAB | | | | [address], | | | | | | [place] [address] | | | | + + + + + + | Anion Gap | 21 (H)Comment: Testing | 5 - 20 mmol/L | EXTERNAL | | | | performed at [facility], [address] | | LAB | | | | [address], | | | | | | [place] [address] | | | | + + + + + + | Glucose, | 100 (H)Comment: Testing | 65 - 99 mg/dL | EXTERNAL | | | Fasting | performed at [facility], [address] | | LAB | | | | [address], | | | | | | [place] [address] | | | | + + + + + + | BUN | 61 (H)Comment: Testing | 8 - 25 mg/dL | EXTERNAL | | | | performed at [facility], [address] | | LAB | | | | [address], | | | | | | [place] [address] | | | | + + + + + + | Creatinine | 16.7 (H)Comment: Testing | 0.50 - 1.00 | EXTERNAL | | | | performed at [facility], [address] | mg/dL | LAB | | | | [address], | | | | | | [place] [address] | | | | + + + + + + | BUN/Creatin | 4Comment: Testing | | EXTERNAL | | | ine Ratio | performed at [facility], [address] | | LAB | | | [address], | | | | | | [place] [address] | | | | + + + [...] | | | | | [place] [address] | | | | + + + + + + | Albumin | 2.2 (L)Comment: Testing | 3.6 - 5.0 g/dL | EXTERNAL | | | | performed at [facility], [address] | | LAB | | | | [address], | | | | | | [place] [address] | | | | + + + + + + | Globulin | 4.7Comment: Testing | 1.3 - 4.9 g/dL | EXTERNAL | | | | performed at [facility], [address] | | LAB | | | | [address], | | | | | | [place] [address] | | | | + + + + + + | A/G Ratio | 0.5 (L)Comment: Testing | 1.0 - 2.4 | EXTERNAL | | | | performed at [facility], [address] | | LAB | | | [address], | | | | | | [place] [address] | | | | + + + + + + | Bilirubin | 0.4Comment: Testing | 0.1 - 1.5 mg/dL | EXTERNAL | | | Total | performed at [facility], [address] | | LAB | | | | [address], | | | | | | [place] [address] | | | | + + + + + + | ALP, | 77Comment: Testing | 35 - 115 U/L | EXTERNAL | | | External | performed at [facility], [address] | | LAB | | | | [address], | | | | | | [place] [address] | | | | + + + + + + | AST | 5 (L)Comment: Testing | 10 - 45 U/L | EXTERNAL | | | | performed at [facility], [address] | | LAB | | | | [address], | | | | | | [place] [address] | | | | + + + + + + | ALT | 8 (L)Comment: Testing | 10 - 65 U/L | EXTERNAL | | | | performed at [facility], [address] | | LAB | | | | [address], | | | | | | [place] [address] | | | | + + + [...] | | | | | | [place] [address] | | | | + + + [...] EXTERNAL | | | | performed at [facility];[address] | mmol/L | LAB | | | | [place] | | | | | | [address] | | | | + + + [...] + + + | RAMONA OCONNOR [address] ABDOMEN [...] Endy, Rad Conversion - 06/24/2019 3:39 AM SRINATH OCONNOR1980 36 years | | FemaleCT ABDOMEN [...] EXTERNAL | | | | performed at [facility];[address] | | LAB | | | | [address];[place], [place] | | | | | | [address] | | | | + + + + + + | Clarity | HAZYComment: Testing | | EXTERNAL | | | | performed at [facility];[address] | | LAB | | | | [address];[place] | | | | | | [address] | | | | + + + + + + | Specific | 1.013Comment: Testing | 1.002 - 1.030 | EXTERNAL | | | [place], | performed at [facility];[address] | | LAB | | | Urine | [address];[place] | | | | | | [address] | | | | + + + + + + | Leukocyte | SMALL (A)Comment: | | EXTERNAL | | | Esterase, | Testing performed at | | LAB | | | Urine | [facility];[address];[place] [address] | | | | + + + + + + | Nitrite, | NEGATIVEComment: Testing | | EXTERNAL | | | Urine | performed at [facility];[address] | | LAB | | | | [address];[place] | | | | | | [address] | | | | + + + + + + | Urobilinoge | NORMALComment: Testing | mg/dL | EXTERNAL | | | n, Urine | performed at [facility];[address] | | LAB | | | | [address];[place] | | | | | | [address] | | | | + + + + + + | Protein, | >500 (A)Comment: Testing | mg/dL | EXTERNAL | | | Urine | performed at [facility];[address] | | LAB | | | | [address];[place] | | | | | | [address] | | | | + + + + + + | pH, Urine | 9.0 (H)Comment: Testing | 5.0 - 8.0 | EXTERNAL | | | | performed at [facility];[address] | | LAB | | | | [address];[place] | | | | | | [address] | | | | + + + + + + | Blood, | SMALL (A)Comment: | | EXTERNAL | | | Urine | Testing performed at | | LAB | | | | [facility];[address];[place] [address] | | | | + + + + + + | Ketones | NEGATIVEComment: Testing | mg/dL | EXTERNAL | | | | performed at [facility];[address] | | LAB | | | | [address];[place] | | | | | | [address] | | | | + + + + + + | Bilirubin, | NEGATIVEComment: Testing | | EXTERNAL | | | Urine | performed at [facility];[address] | | LAB | | | | [address];[place] | | | | | | [address] | | | | + + + + + + | Glucose, | 150 (A)Comment: Testing | mg/dL | EXTERNAL | | | Urine | performed at [facility];[address] | | LAB | | | | [address];[place] | | | | | | [address] | | | | + + + + + + | WBC, UA | 50-100Comment: Testing | 0 - 5 /hpf | EXTERNAL | | | | performed at [facility];[address] | | LAB | | | | [address];[place] | | | | | | [address] | | | | + + + + + + | RBC, UA | 11-15Comment: Testing | 0 - 5 /hpf | EXTERNAL | | | | performed at [facility];[address] | | LAB | | | | [address];[place] | | | | | | [address] | | | | + + + + + + | Bacteria, | 1+ (A)Comment: Testing | | EXTERNAL | | | UA | performed at [facility];[address] | | LAB | | | | [address];[place] | | | | | | [address] | | | | + + + + + + | Epithelial | 50-100Comment: Testing | /lpf | EXTERNAL | | | Cells | performed at [facility];[address] | | LAB | | | | [address];[place] | | | | | | [id number] | | | | + + + + + + | Mucus, | 1+Comment: Testing | | EXTERNAL | | | Urine | performed at [facility] [place];[address] | | LAB | | | | [address];[place] | | | | | | [address] | | | | + + + [...] NEGATIVE Testing | | | performed at [facility] [place];[address] [place] [address];[place] [address] | | + + + + +---------+ + + | Performing | Address | City/State/Zipcode | Phone Number | | Organization | | | | + +---------+ + + | EXTERNAL LAB | | | | + +---------+ + + External Lab: [facility] (01/22/2017 9:08 PM PDT) + + + + + + | Component | Value | Ref Range | Performed | Pathologist | | | | | At | Signature | + + + + + + | WBC | 16.59 (H)Comment: | 3.80 - 11.00 | EXTERNAL | | | | Testing performed at | K/uL | LAB | | | | [facility] [place] [address] | | | | | | [address];[place] [address] | | | | + + + + + + | Red Blood | 3.82Comment: Testing | 3.70 - 5.10 | EXTERNAL | | | Cells | performed at [facility] [place];[address] | M/uL | LAB | | | Counted | [address];[place] | | | | | | [address] | | | | + + + + + + | Hemoglobin | 11.0 (L)Comment: Testing | 11.3 - 15.5 | EXTERNAL | | | | performed at [facility] [place];[address] | g/dL | LAB | | | | [address];[place] | | | | | | [address] | | | | + + + + + + | Hematocrit, | 32.8 (L)Comment: Testing | 34.0 - 46.0 % | EXTERNAL | | | POC | performed at [facility] [place];[address] | | LAB | | | | [address];[place] | | | | | | [address] | | | | + + + + + + | MCV | 85.9Comment: Testing | 80.0 - 100.0 fl | EXTERNAL | | | | performed at [facility] [place];[address] | | LAB | | | | [address];[place] | | | | | | [address] | | | | + + + + + + | MCH | 28.9Comment: Testing | 27.0 - 34.0 pg | EXTERNAL | | | | performed at [facility] [place];[address] | | LAB | | | | [address];[place] | | | | | | [address] | | | | + + + + + + | MCHC | 33.6Comment: Testing | 32.0 - 35.5 | EXTERNAL | | | | performed at [facility] [place];[address] | g/dL | LAB | | | | [address];[place] | | | | | | [address] | | | | + + + + + + | RDW-CV | 43.8Comment: Testing | 37 - 53 fl | EXTERNAL | | | | performed at [facility] [place];[address] | | LAB | | | | [address];[place] | | | | | | [address] | | | | + + + + + + | Platelet | 319Comment: Testing | 150 - 400 K/uL | EXTERNAL | | | Count | performed at [facility] [place];[address] | | LAB | | | Plasma | [address];[place] | | | | | | [address] | | | | + + + + + + | MPV | 7.0Comment: Testing | fl | EXTERNAL | | | | performed at [facility] [place];[address] | | LAB | | | | [address];[place] | | | | | | [address] | | | | + + + + + + | Differentia | AUTOMATEDComment: | | EXTERNAL | | | l Type | Testing performed at | | LAB | | | | [facility] [place];[address];[place] [address] | | | | + + + + + + | % Segmented | 79.91Comment: Testing | % | EXTERNAL | | | | performed at [facility] [place];[address] | | LAB | | | Neutrophils | [address];[place] | | | | | | [address] | | | | + + + + + + | % | 10.43Comment: Testing | % | EXTERNAL | | | Lymphocytes | performed at [facility] [place];[address] | | LAB | | | | [address];[place] | | | | | | [address] | | | | + + + + + + | % Monocytes | 6.18Comment: Testing | % | EXTERNAL | | | | performed at [facility] [place];[address] | | LAB | | | | [address];[place] | | | | | | [address] | | | | + + + + + + | % | 3.05Comment: Testing | % | EXTERNAL | | | Eosinophils | performed at [facility] [place];[address] | | LAB | | | | [address];[place] | | | | | | [address] | | | | + + + + + + | % Basophils | 0.43Comment: Testing | % | EXTERNAL | | | | performed at [facility] [place];[address] | | LAB | | | | [address];[place] | | | | | | [address] | | | | + + + + + + | Absolute | 13.26 (H)Comment: | 1.90 - 7.40 | EXTERNAL | | | Segmented | Testing performed at | K/uL | LAB | | | Neutrophils | [facility] [place];[address];[place] [address] | | | | + + + + + + | Absolute | 1.73Comment: Testing | 1.00 - 3.90 | EXTERNAL | | | Lymphocytes | performed at [facility] [place];[address] | K/uL | LAB | | | | [address];[place] | | | | | | [address] | | | | + + + + + + | Absolute | 1.03 (H)Comment: Testing | 0.00 - 0.80 | EXTERNAL | | | Monocytes | performed at [facility] [place];[address] | K/uL | LAB | | | | [address];[place] | | | | | | [address] | | | | + + + + + + | Absolute | 0.51 (H)Comment: Testing | 0.00 - 0.50 | EXTERNAL | | | Eosinophils | performed at [facility] [place];[address] | K/uL | LAB | | | | [address];[place] | | | | | | [address] | | | | + + + + + + | Absolute | 0.07Comment: Testing | 0.00 - 0.10 | EXTERNAL | | | Basophils | performed at [facility] [place];[address] | K/uL | LAB | | | | [address];[place] | | | | | | [address] | | | | + + + [...] EXTERNAL | | | | performed at [facility];[address] | | LAB | | | | [address];[place], [place] | | | | | | [address] | | | | + + + [...] mg/dL | EXTERNAL | | | | PHYSICIANEDDR MARIA L AT | | LAB | | | | 2149 BY RHREAD BACK | | | | | | RESULTS VERIFIEDTesting | | | | | | performed at [facility] [place];[address] | | | | | | [address];[place], [place] | | | | | | [address] | | | | + + + [...] | | LAB | | | | [facility];[address] [facility] | | | | | | [facility];[place] [address] | | | | + + + [...] EXTERNAL | | | | performed at [facility] [place];888 | mmol/L | LAB | | | | [address];[place] | | | | | | [address] | | | | + + + + + + | K | 4.0Comment: Testing | 3.5 - 4.9 | EXTERNAL | | | | performed at [facility] [place];[address] | mmol/L | LAB | | | | [address];[place] | | | | | | [address] | | | | + + + + + + | Cl | 94 (L)Comment: Testing | 99 - 109 mmol/L | EXTERNAL | | | | performed at [facility] [place];[address] | | LAB | | | | [address];[place] | | | | | | [address] | | | | + + + + + + | CO2 | 27Comment: Testing | 23 - 32 mmol/L | EXTERNAL | | | | performed at [facility] [place];[address] | | LAB | | | | [address];[place] | | | | | | [address] | | | | + + + + + + | Anion Gap | 19Comment: Testing | 5 - 20 mmol/L | EXTERNAL | | | | performed at [facility] [place];[address] | | LAB | | | | [address];[place] | | | | | | [address] | | | | + + + + + + | Glucose, | 104 (H)Comment: Testing | 65 - 99 mg/dL | EXTERNAL | | | Fasting | performed at [facility] [place];[address] | | LAB | | | | [address];[place] | | | | | | [address] | | | | + + + + + + | BUN | 62 (H)Comment: Testing | 8 - 25 mg/dL | EXTERNAL | | | | performed at [facility] [place];[address] | | LAB | | | | [address];[place] | | | | | | [address] | | | | + + + + + + | Creatinine | 16 (H)Comment: Testing | 0.50 - 1.00 | EXTERNAL | | | | performed at [facility] [place];[address] | mg/dL | LAB | | | | [address];[place] | | | | | | [address] | | | | + + + + + + | BUN/Creatin | 4Comment: Testing | | EXTERNAL | | | ine Ratio | performed at [facility] [place];[address] | | LAB | | | | [address];[place] | | | | | | [address] | | | | + + + + + + | Calcium | 9.7Comment: Testing | 8.5 - 10.5 | EXTERNAL | | | | performed at [facility] [place];[address] | mg/dL | LAB | | | | [address];[place] | | | | | | [address] | | | | + + + + + + | Protein, | 7.9Comment: Testing | 6.3 - 8.2 g/dL | EXTERNAL | | | Total | performed at [facility] [place];[address] | | LAB | | | | [address];[place] | | | | | | [address] | | | | + + + + + + | Albumin | 2.4 (L)Comment: Testing | 3.6 - 5.0 g/dL | EXTERNAL | | | | performed at [facility] [place];[address] | | LAB | | | | [address];[place] | | | | | | [address] | | | | + + + + + + | Globulin | 5.5 (H)Comment: Testing | 1.3 - 4.9 g/dL | EXTERNAL | | | | performed at [facility] [place];[address] | | LAB | | | | [address];[place] | | | | | | [address] | | | | + + + + + + | A/G Ratio | 0.4 (L)Comment: Testing | 1.0 - 2.4 | EXTERNAL | | | | performed at [facility] [place];[address] | | LAB | | | | [address];[place] | | | | | | [address] | | | | + + + + + + | Bilirubin | 0.3Comment: Testing | 0.1 - 1.5 mg/dL | EXTERNAL | | | Total | performed at [facility] [place];[address] | | LAB | | | | [address];[place] | | | | | | [address] | | | | + + + + + + | ALP, | 86Comment: Testing | 35 - 115 U/L | EXTERNAL | | | External | performed at [facility] [place];[address] | | LAB | | | | [address];[place] | | | | | | [address] | | | | + + + + + + | AST | 5 (L)Comment: Testing | 10 - 45 U/L | EXTERNAL | | | | performed at [facility] [place];[address] | | LAB | | | | [address];[place] | | | | | | [address] | | | | + + + + + + | ALT | 9 (L)Comment: Testing | 10 - 65 U/L | EXTERNAL | | | | performed at [facility];[address] | | LAB | | | | [address];[place] | | | | | | [address] | | | | + + + [...] | | | | | | at [facility];[address];[place] [address] | | | | + + + [...]
--- OUTSIDE RECORDS SUMMARY | ~2020-05-11 | XMS | Encounter Summary ---
Demographics + + + | Address | [address] | | | [place] [address] | + + + | Home Phone [...] [place], [place] | | | | | [address] | | + + + + + | Lydia Palm | ECON | [place], [place] | | | | | [address] | | + + + + + | melinda METZ" | ECON | [place], [place] | | | [place]ba | | [address] | | + + + + + | Jose C Oconnor | ECON | [place] | | | | | [place] | | | | | [address] | | + + + + + Care Team Providers + +------+ + | Care Padder Cushion Name | Role | Phone | + +------+ + | Unknown, Physician | PCP | | + +------+ + Reason for Visit +--------+--------+ + | Reason | Onset | Comments | | | Date | | +--------+--------+ + | Error | 01/12/ | | | | 2019 | | +--------+--------+ + Encounter Details +--------+ + + + + | Date | Type | Department | Care Team | Description | +--------+ + + + + | 01/12/ | Telephone | [facility] | Samira Dixon, | Error | | 2019 | | VASCULAR SURGERY | RN | | | | | [address] | | | | | | [place] | | | | | | [address] | | | | | | [phone] | | | +--------+ + + + [...] Encounter - Samira Dixon RN - 01/13/2020 11:07 AM PSTerrorElectronically sig brody by Samira Dixon RN at 01/13/2020 11:13 AM PSTdocumented in this encounter Plan of Treatment Not on filedocumented as of this encounter Visit Diagnoses Not on filedocumented in this encounter
--- OUTSIDE RECORDS SUMMARY | ~2020-05-11 | XMS | Encounter Summary ---
Demographics + + + | Address | [address] | | | [place] [address] | + + + | Home Phone [...] [place], [place] | | | | | [address] | | + + + + + | Lydia Palm | ECON | [place], [place] | | | | | [address] | | + + + + + | melinda METZ" | ECON | [place], [place] | | | reba | | [address] | | + + + + + | Jose C Oconnor | ECON | [place] | | | | | [place] | | | | | [address] | | + + + + + Care Team Providers + +------+ + | Care Energy Analyst Name | Role | Phone | + +------+ + | Juan F Whitley DO | PCP | | + +------+ + Encounter Details +--------+ + + + + | Date | Type | Department | Care Team | Description | +--------+ + + + + | 12/07/ | Hospital | [facility] | Ginger Bass | Spontaneous | | 2019 - | Encounter | [facility] | MD [address] | bacterial | | | | CARE FLOOR [address] | peritonitis ([facility]); | | 12/10/ | | [address] | [place] [address] | Bandemia; ESRD on | | 2019 | | [place], [place] | [phone] | peritoneal dialysis | | | | [address] | | ([facility]); Anemia in | | | | [phone] | | ESRD (end-stage | | | | | | renal disease) | | | | | | ([facility]); Peritonitis | | | | | | due to infected | | | | | | peritoneal dialysis | | | | | | catheter, subsequent | | | | | | encounter ([facility]) | +--------+ + + + + Social [...] Date of Service: 12/10/18 0752 Status: Signed Award Machine Operator: Hilda Edwards DO (Physician) Patient: Ramona Oconnor : 1980 Date of Admission: 12/07/2018 Date of Discharge: 12/10/2018 Treatment Team: Consulting Physician: Chago Rey MD Consulting Physician: Lois Richmond MD [...] Information: [place]: [place] [address] [place] [address] Chago Rey MD [facility] Yahir Quinteros [address] [id number] Medication List START taking these medications cefdinir [...] Refills: 0 Commonly known as: KlonoPIN ergocalciferol 23113 units capsule Refills: 0 Commonly known as: [...] Note by Daisha Atwood RN at 12/10/18 1319 Author: Daisha Atwood RN Service: (none) Author Type: Registered Nurse Filed: 12/10/18 1320 Date of Service: 12/10/181318 Status: Signed Award Machine Operator: Daisha Atwood RN (Registered Nurse) Reviewed discharge [...] 12/10/18515 Date of Service: 12/10/18514 Status: Signed Award Machine Operator: Molina Cobb RN (Registered Nurse) Pt a/ox4, [...] 12/09/181732 Date of Service: 12/09/181731 Status: Signed Award Machine Operator: Marixa Juarez RN (Registered Nurse) Reglan started this shift for uncontrolled nausea per MD order. Pt tolerating well and sta acacia improving nausea and minimal to no abdominal pain. Pt will be getting peritoneal dialysis tonight. No other acute changes from previous asses sment. End of shift review complete. Marixa Juarez RN Hilda Peraza DO - 12/09/2018 4:20 PM PST Progress Notes by Hilda Edwards DO at 12/09/18 4157 Author: Hilda Edwards DO Service: Hospitalist Author Type: Physician Filed: 12/09/180 Date of Service: 12/09/181619 Status: Signed Award Machine Operator: Hilda Edwards DO (Physician) [facility] [...] Management by Ryley Parker RN at 12/09/18 9569 Author: Ryley Parker RN Service: (none) Author Type: Registered Nurse Filed: 12/09/18 1611 Date of Service: 12/09/18 1606 Status: Signed Award Machine Operator: Ryley Parker RN (Registered Nurse) 12/09/18 1600 [...] baseline. Pt completed PD at home thru [facility] Power of Veneer Splicer No Anticipated Discharge Plan Post Acute Care Needs None at this time Plan communicated to patient/family Yes Resources Financial concerns No Transportation issues No Patient/Family concerns No Prescription Plan Yes Name of Pharmacy [facility] Previous home health equipment Yes (PD machine) Vascular access device Yes (PD access) Ostomy/Drains/Appliances No Anticipated Disposition Facility Type Home Met with pt and discussed discharge planning, Pt is a 38 y.o., female from home with spouse independent and lives with spouse. Pt does PD at home monitored thru [facility]. Patient's PCP is:JUAN F WHITLEY Patient's insurance:[email or web address] Coverage concerns: no Medication coverage/concerns: no Rx Bedside Delivery:TBD Community resources utilized / needed: [facility] [phone] can arrange arrange P ICC care if [...] Infectious Disease Author Type: Physician Filed: 12/09/18 1643 Date of Service: 12/09/18957 Status: Signed Award Machine Operator: Lois Richmond MD (Physician) [facility] Service: Infectious Disease [...] Service: (none) Author Type: Registered Nurse Filed: 12/09/1817 Date of Service: 12/09/18614 Status: Signed Award Machine Operator: Molina Cobb RN (Registered Nurse) Pt a/ox4, [...] 12/08/181713 Date of Service: 12/08/181713 Status: Signed Award Machine Operator: Majo Gonzalez RN (Registered Nurse) Patient is A&OX4, VSS, c/o pain see MAR. Patient is steady on her feet, and ambulating thro hout hallway with spouse. Patient currently resting in bed comfortably. End of shift revie w complete. MAJO GONZALEZ RN ilda Boucher DO - 12/08/2018 8:13 AM PST Progress Notes by Hilda Edwards DO at 12/08/18812 Author: Hilda Edwards DO Service: Hospitalist Author Type: Physician Filed: 12/08/181950 Date of Service: 12/08/18812 Status: Signed Award Machine Operator: Hilda Edwards DO (Physician) [facility] [...] Progress Note by Zana Zabala RN at 12/08/18 0625 Author: Zana Zabala RN Service: (none) Author Type: Registered Nurse Filed: 12/08/18624 Date of Service: 12/08/18624 Status: Signed Award Machine Operator: Zana Zabala RN (Registered Nurse) Chart check complete onver patric Transaction, Provider Unknown - 12/07/2018 11:24 PM PST Progress Notes by April Chacon RPH at 12/07/182323 Author: April Chacon RPH Service: Pharmacy Author Type: Pharmacist Filed: 12/07/182323 Date of Service: 12/07/182323 Status: Signed Award Machine Operator: April Chacon RPH (Pharmacist) Renal Dosing Monitoring: Ramona Oconnor 38 [...] April Chacon docume nted in this encounter H&P Notes Ginger Bass MD - 12/07/2018 6:42 PM PST H&P by Ginger Bass MD at 12/07/181841 Author: Ginger Bass MD Service: Hospitalist Author Type: Physician Filed: 12/07/182106 Date of Service: 12/07/181841 Status: Signed Award Machine Operator: Ginger Bass MD (Physician) Related Notes: Original Note by Ginger Bass MD (Physician) filed at 12/07/181922 [facility] Service: Hospitalist Admission History & Physical Pt: Ramona Oconnor AGE/SEX: 38 y.o. female Date of Admission: 12/07/2018 Reason for Admission: Possible peritonitis History Obtained From: patient CHIEF COMPLAINT: Abdominal pain HISTORY OF PRESENT ILLNESS The patient is a 38 y.o. female with significant past medical history of End-stage renal d isjacqueline, on peritoneal dialysis, hypertension, presented to the ED with 4 day history of abdo kelsie pain, nausea and vomiting. The patient complains of dry heaving and cramping abdomina l pain, ongoing since the past 4 days. She has not been able to eat anything for the past 2 days. She also complains of pleuritic chest pain, which comes on with dry heaving, but den ies any shortness of breath. The patient rates the pain 10[facility] and then after she received morphine, her pain has subsided. She also rec eived a dose of Zosyn for possible peritonitis and Nephrology was consulted. Peritoneal flu id has been drawn and fluid studies are pending. The patient is being admitted for possible SBP. D-dimer was low and troponin was negative. The patient has had SBP previously and feels th at this pain is different from those episodes. She does not smoke and does not drink alcoho l. Active comorbid conditions include: - renal disease - GERD ED Medication Administration from 12/07/2018 1234 to 12/07/2018 1842 Date/Time Order Dose Route Action Action by 12/07/2018 1548 aspirin chewable tablet 324 mg 324 mg Oral Given Carmen Mark RN 12/07/2018 1554 nitroGLYCERIN (NITROSTAT) SL tablet 0.4 mg 0.4 mg Sublingual Given Carmen Mark RN 12/07/2018 1812 morphine (PF) injection 4 mg 4 mg Intravenous Given Pennie Cohen RN 12/07/2018 1646 morphine (PF) injection 4 mg 4 mg Intravenous Given Ronnie Wilks RN 12/07/2018 1549 morphine (PF) injection 4 mg 4 mg Intravenous Given Carmen Mark RN 12/07/2018 1546 ondansetron (ZOFRAN) injection 8 mg 8 mg Intravenous Given Carmen Mark RN 12/07/2018 1820 piperacillin-tazobactam (ZOSYN) 4-0.5 GM/100ML IVPB 4.5 g 0 g Intravenous Stopped Pennie Cohen RN 12/07/2018 1706 piperacillin-tazobactam (ZOSYN) 4-0.5 GM/100ML IVPB 4.5 g 4.5 g Intraveno us New Bag Ronnie Wilks RN 12/07/2018 1706 sodium chloride (bolus) 0.9 % 1,000 mL 1,000 mL Intravenous New Bag Sara Wilks RN 12/07/2018 1805 ondansetron (ZOFRAN) injection 8 mg 8 mg Intravenous Given Panda Berry REVIEW OF SYSTEMS Review of Systems Constitutional: Positive for malaise/fatigue. HENT: Negative. Eyes: Negative. Respiratory: Negative. Cardiovascular: Positive for chest pain. Gastrointestinal: Positive for abdominal pain, nausea and vomiting. Genitourinary: Negative. Musculoskeletal: Negative. Neurological: Positive for weakness. Endo/Heme/Allergies: Negative. Psychiatric/Behavioral: Negative. Past Medical History Diagnosis Date Diverticulosis GERD (gastroesophageal reflux disease) Hypercalcemia 09/07/2017 Hyperphosphatemia 10/28/2015 Hypocalcemia 10/28/2015 Itching 10/28/2015 Metabolic acidosis 10/28/2015 Obesity Peritonitis associated with peritoneal dialysis (HCC) 01/24/2017 Uremia 10/28/2015 Past Surgical History Procedure Laterality Date ESOPHAGOGASTRODUODENOSCOPY N/A 09/10/2017 Procedure: ESOPHAGOGASTRODUODENOSCOPY; Surgeon: Beena Peters MD; Location: [facility]; Service: Gastroenterology; Laterality: N/A; PERITONEAL CATHETER INSERTION N/A 10/28/2015 Procedure: LAPAROSCOPIC - PERITONEAL DIALYSIS CATH INSERTION; Surgeon: Mundo Ramos MD; Lo cation: [facility] OR; Service: Vascular; Laterality: N/A; No Known Allergies Prior to Admission medications Medication Sig Start Date End Date Taking? Authorizing Provider amLODIPine (NORVASC) 2.5 MG tablet Take 2.5 mg by mouth daily. Yes Historical Provider promethazine (PHENERGAN) 25 MG tablet Take 1 tablet by mouth every 6 (six) hours as needed for Nausea. 03/09/18 Yes Lukas Lynn MD-R3 ALPRAZolam (XANAX) 0.5 MG tablet Take 0.5 mg by mouth nightly as needed for Sleep. Histo rical Provider ergocalciferol (DRISDOL) 56320 UNITS capsule Take 50,000 Units by mouth [...] not taking: Reported on 06/07/2018 03/09/18 03/09/19 Lukas Lynn MD-R3 sevelamer (RENVELA) 800 MG tablet Take 2 tablets by mouth 3 (three) times daily with meals. 01/25/17 06/07/18 Shad Ba MD zolpidem (AMBIEN) 5 MG tablet Take 1 tablet by mouth nightly as needed for Sleep (may repea t once in 1 hr if initial dose not effective). Patient not taking: Reported on 06/07/2018 03/09/18 Lukas Lynn MD-R3 Family History Problem Relation Age of Onset Other (see comments) Mother healthy Diabetes Father Breast cancer Maternal Grandmother Social History History Smoking Status Former Smoker Packs/day: 0.25 Quit date: 10/10/2015 Smokeless Tobacco Never Used History Alcohol Use No Comment: occ History Drug Use Types: Marijuana Comment: oil PHYSICAL EXAM Vital Signs: BP 108/81 | Pulse 102 | Temp 98.1 F (36.7 C) (Oral) | Resp 20 | Wt 79.7 kg (175 lb 11.3 oz) | SpO2 99% | BMI 32.14 kg/m Physical Exam Constitutional: She is oriented to person, place, and time. She appears well-developed and well-nourished. HENT: Head: Normocephalic and atraumatic. Eyes: Pupils are equal, round, and reactive to light. EOM are normal. Neck: Normal range of motion. Neck supple. Cardiovascular: Tachycardia present. Pulmonary/Chest: Effort normal and breath sounds normal. No respiratory distress. She has n o wheezes. Tenderness present over the sternum. Abdominal: Soft. Bowel sounds are normal. Tenderness present in the right upper quadrant and epigastric area. PD catheter present. Musculoskeletal: Normal range of motion. She exhibits no edema. Neurological: She is alert and oriented to person, place, and time. No cranial nerve defici t. Skin: Skin is warm and dry. No erythema. Psychiatric: She has a normal mood and affect. Vitals reviewed. DATA Admission on 12/07/2018 Component Date Value Ref Range Status WBC 12/07/2018 26.34* 3.80 - 11.00 K/uL Final RBC 12/07/2018 4.73 3.70 - 5.10 M/uL Final HGB 12/07/2018 13.6 11.3 - 15.5 g/dL Final HCT 12/07/2018 40.9 34.0 - 46.0 % Final MCV 12/07/2018 86.4 80.0 - 100.0 fl Final MCH 12/07/2018 28.8 27.0 - 34.0 pg Final MCHC 12/07/2018 33.4 32.0 - 35.5 g/dL Final RDW SD 12/07/2018 45.1 37 - 53 fl Final PLT 12/07/2018 484* 150 - 400 K/uL Final MPV 12/07/2018 8.0 fl Final DIFF TYPE 12/07/2018 MANUAL Final Neutrophils Manual 12/07/2018 78 % Final Bands 12/07/2018 10 % Final METAMYELOCYTES 12/07/2018 1 % Final Lymphocytes Manual 12/07/2018 9 % Final Monocytes Manual 12/07/2018 2 % Final Neutrophils Absolute 12/07/2018 20.55* 1.90 - 7.40 K/uL Final Bands Manual 12/07/2018 2.63* 0.00 - 0.20 K/uL Final Metamyelocytes Absolute 12/07/2018 0.26* 0.00 K/uL Final Lymphocytes Absolute 12/07/2018 2.37 1.00 - 3.90 K/uL Final Monocytes Absolute 12/07/2018 0.53 0.00 - 0.80 K/uL Final Platelet Estimate 12/07/2018 INCREASED Final MORPHOLOGY 12/07/2018 RBC AND PLT MORPHOLOGY APPEAR NORMAL Final SODIUM 12/07/2018 141 135 - 145 mmol/L Final POTASSIUM 12/07/2018 3.9 3.5 - 4.9 mmol/L Final CHLORIDE 12/07/2018 96* 99 - 109 mmol/L Final CO2 12/07/2018 25 23 - 32 mmol/L Final ANION GAP AGAP 12/07/2018 24* 5 - 20 mmol/L Final GLUCOSE 12/07/2018 131* 65 - 99 mg/dL Final BUN 12/07/2018 35* 8 - 25 mg/dL Final CREATININE 12/07/2018 13.70* 0.50 - 1.00 mg/dL Final BUN/CREAT 12/07/2018 3 Final CALCIUM 12/07/2018 9.4 8.5 - 10.5 mg/dL Final TOTAL PROTEIN 12/07/2018 8.7* 6.3 - 8.2 g/dL Final Albumin 12/07/2018 4.9 3.6 - 5.0 g/dL Final GLOBULIN 12/07/2018 3.8 1.3 - 4.9 g/dL Final A/G 12/07/2018 1.3 1.0 - 2.4 Final TBIL 12/07/2018 0.2 0.1 - 1.5 mg/dL Final ALK PHOS 12/07/2018 126* 35 - 115 U/L Final AST 12/07/2018 15 10 - 45 U/L Final ALT 12/07/2018 11 10 - 65 U/L Final EGFR 12/07/2018 3* >60 mL/min/1.73m2 Final CPK 12/07/2018 146 30 - 240 U/L Final INR 12/07/2018 0.9 Final APTT 12/07/2018 28 23 - 32 seconds Final MMB 12/07/2018 1.7 0.5 - 3.6 ng/mL Final CK-MB Index 12/07/2018 1.2 Final TROPONIN I 12/07/2018 0.026 0.00 - 0.10 ng/mL Final CRP 12/07/2018 2.5* <0.5 mg/dL Final LIPASE 12/07/2018 51 12 - 53 U/L Final D DIMER, QUANTITATIVE 12/07/2018 0.34 0.19 - 0.50 mg/L FEU Final BRAIN NATRIURETIC PEPTIDE 12/07/2018 50.36 0 - 100 pg/mL Final Specimen Description 12/07/2018 PERITONEAL FLUID Preliminary GRAM STAIN 12/07/2018 NO ORGANISMS SEEN Preliminary CULTURE 12/07/2018 PENDING Preliminary MAGNESIUM 12/07/2018 3.2* 1.7 - 2.4 mg/dL Final PHOSPHORUS 12/07/2018 5.7* 2.3 - 4.8 mg/dL Final Ct Abdomen Pelvis Without Contrast Result Date: 12/07/2018 1. The intrinsically complex and/or dense 4.5 cm mass arising from the right ovary or adne xa is stable but could be a source for ongoing symptoms 2. Stable renal atrophy and likely peritoneal dialysis catheter, without adjacent fluid collection or hemorrhage along the cour se of the catheter 3. No extraluminal lesion, dilatation or obstruction but non masslike wa ll thickening of the proximal colon is demonstrated. No high-grade adjacent inflammatory lala nges or fluid collection. Still, low-grade proximal colitis is possible, and there is divert iculosis Signed by: Santos Gil Sign Date/Time: 12/07/2018 4:56 PM Xr Chest Pa And Lateral Result Date: 12/07/2018 Negative chest. Signed by: Zev Conner Sign Date/Time: 12/07/2018 4:36 PM EKG showed sinus tachycardia with heart rate of 115. QTC 478 PROBLEM LIST Principal Problem: Peritonitis (HCC) Active Problems: Abdominal pain ESRD on peritoneal dialysis Leukocytosis ASSESSMENT & PLAN Possible SBP due to peritoneal dialysis. Discussed with Dr. Rey and consulted. We will st art patient on Fortaz. Will check MRSA screen. ID consulted. We will await peritoneal fluid studies. Blood cultures are pending. CRP is elevated. Hypertension. Will continue Norvasc. Abdominal pain. Will start patient on morphine and hydrocodone prn. Lipase is within normal limits. Dehydration. We will start patient on IV fluids. Discussed with Dr. Rey. End-stage renal disease on peritoneal dialysis. Nephrology consulted. Will continue Renvela . Pleuritic chest pain. Will monitor patient on telemetry and check serial cardiac Enzymes. W ill also check echocardiogram. D-dimer is low. BNP is low. Anxiety. Will continue Ativan prn. Nausea and vomiting. Will continue Zofran prn. Deep vein thrombosis prophylaxis. Will start patient on heparin. The plan has explained in detail to the patient and spouse , all questions were answered.Al l data was reviewed. Time spent over 70 minutes Disposition: Inpatient Code Status: Prior Primary Care Physician: JUAN F Bass MD 12/07/2018 6:42 PM This entry has been created using [email or web address] Speech Recognition software and [employer]. The entry has been reviewed and there may still exist sound alike word errors. documented in th is encounter Procedure Notes Chago Rey MD - 12/10/2018 11:02 AM PST Procedures by Chago Rey MD at 12/10/18 1102 Author: Chago Rey MD Service: Nephrology Author Type: Physician Filed: 12/16/18 1730 Date of Service: 12/10/18 1102 Status: Signed Award Machine Operator: Chago Rey MD (Physician) Procedure Orders: 1. Peritoneal Dialysis ([facility]PD) [[id number]] ordered by Chago Rey MD at 12/09/18 1617 Hospital Problem List: Principal Problem: Peritonitis due to infected peritoneal dialysis catheter (HCC) Active Problems: Abdominal pain ESRD on peritoneal dialysis Leukocytosis The patient says that she feels 'ok' today. she denies any chest pain, dyspnea; her urine output is low. Admitted for Possible peritonitis She presented with stomach pain x 4 days, nausea and vomiting worsening, low po intake for a few days. PD fluid yesterday was clear with some fibrin, no blood or cloudiness. Little dizziness, no loc, no falls. Home PD Rx is: 6 fills, 2L, 1.5hrs each. 1.5% last night (12/06). UF from PD today is: 1L The following portions of the patient's history were reviewed and updated as appropriate: l aboratory data, radiologic studies, allergies, current medications, and problem list. Scheduled Meds: amLODIPine 2.5 mg Oral Nightly cefdinir 300 mg Oral Daily ergocalciferol 50,000 Units Oral Weekly heparin (porcine) 5000 unit/0.5mL 5,000 Units Subcutaneous 2 times per day metroNIDAZOLE 500 mg Oral 2 times per day sevelamer 1,600 mg Oral TID WC Continuous Infusions: lactated ringers 75 mL/hr at 12/10/18 0449 PRN Meds:.acetaminophen OR acetaminophen, calcium carbonate, HYDROcodone-acetaminophen, HYDROcodone-acetaminophen, LORazepam, metoclopramide, polyethylene glycol, promethazine, zo lpidem BP 115/68 | Pulse 82 | Temp 98.8 F (37.1 C) (Oral) | Resp 16 | Ht 1.575 m (5' 2") | Wt 81.1 kg (178 lb 12.7 oz) | SpO2 97% | BMI 32.70 kg/m General appearance: Pleasant, not in acute distress. Up to bedside. Family in room. Lungs: Clear to auscultation. There are no wheezes. Heart: Regular rate and rhythm without any rub, gallop. no murmur. Abdominal exam: Soft and mild tenderness on left with normal bowel sounds. Extremities: Warm to touch with no leg edema. There is no cyanosis or clubbing. Neurological: Awake, alert, and oriented to time, place, and person. Normal gross motor po wer. There is no asterixis. Access : PD cath in place, site is benign Lab Results Component Value Date BUN 32 (H) 12/09/2018 CREATININE 13.6 (H) 12/09/2018 EGFR 3 (L) 12/09/2018 NA 139 12/09/2018 K 3.6 12/09/2018 CL 98 (L) 12/09/2018 CO2 29 12/09/2018 CA 8.3 (L) 12/09/2018 PHOS 6.1 (H) 12/08/2018 MG 3.1 (H) 12/08/2018 ALB 4.9 12/07/2018 HGB 10.2 (L) 12/09/2018 I/O last 3 completed shifts: In: 35708 [P.O.:1110; I.V.:2701; Other:61823] Out: 59041 [Emesis/NG output:240; Other:81410] Assessment: Ms. Oconnor is a 38 y.o. female patient with ESRD, PD. Admitted for Possible peritonitis Anemia of ESRD hypermag hyperphos hypoK Potassium 40mEq po x 1 dose 12/08 Recommendations: Daily PD, UF as tolerated Abx per ID team No acute need for ANGELA; she is on the outpatient protocol for that Protein supplements stressed Low phos in diet & use of Phos binders stressed Strict I/O and Daily Weights From the renal perspective: She may be released. I discussed the case with the primary team at the time of this encounter. CHAGO REY MD Demar Gil ARN P - 12/09/2018 8:19 AM PST Procedures by BALJIT Guerrier at 12/09/18818 Author: BALJIT Guerrier Service: Nephrology Author Type: Nurse Practitioner Filed: 12/09/18 1507 Date of Service: 12/09/18818 Status: Attested Award Machine Operator: BALJIT Guerrier (Nurse Practitioner) Cosigner: Chago Rey MD at 12/16 9837 Procedure Orders: 1. Peritoneal Dialysis (CCPD) [[id number]] ordered by Chago Rey MD at 12/08/18 1810 Attestation signed by Chago Rey MD at 12/16/18 5107 I have seen the patient with Demar SMILEY & personally and independently examined her; I have discussed the case with the CHILDREN'S TUTOR. I agree with his findings & documentation. BALJIT Guerrier, who is in-training for Inpatient Nephrology, started the documentat ion. Note, review of records, exam, recs, plan, discussions were performed, completed by mys elf on 12/09. Chago Rey MD Hospital Problem List: Principal Problem: Peritonitis due to infected peritoneal dialysis catheter (HCC) Active Problems: Abdominal pain ESRD on peritoneal dialysis Leukocytosis The patient says that she feels 'ok' today. she denies any chest pain, dyspnea . her urine output is noted. Admitted for Possible peritonitis She presented with stomach pain x 4 days, nausea and vomiting worsening, low po intake for a few days. PD fluid yesterday was clear with some fibrin, no blood or cloudiness. Little dizziness, no loc, no falls. Home PD Rx is: 6 fills, 2L, 1.5hrs each. 1.5% last night (12/06). UF from PD today is: 1L The following portions of the patient's history were reviewed and updated as appropriate: l aboratory data, radiologic studies, allergies, current medications, and problem list. Scheduled Meds: amLODIPine 2.5 mg Oral Nightly cefOXitin 1 g Intravenous Q24H ergocalciferol 50,000 Units Oral Weekly heparin (porcine) 5000 unit/0.5mL 5,000 Units Subcutaneous 2 times per day sevelamer 1,600 mg Oral TID WC Continuous Infusions: lactated ringers 75 mL/hr at 12/09/18 0241 PRN Meds:.acetaminophen OR acetaminophen, calcium carbonate, HYDROcodone-acetaminophen, LORazepam, morphine, ondansetron OR ondansetron, polyethylene glycol, zolpidem BP 122/58 (BP Location: Left upper arm) | Pulse 79 | Temp 98.6 F (37 C) (Oral) | Res p 18 | Wt 81.1 kg (178 lb 12.7 oz) | SpO2 98% | BMI 32.70 kg/m General appearance: Pleasant, not in acute distress. Up to bedside. Family in room. Lungs: Clear to auscultation. There are no wheezes. Heart: Regular rate and rhythm without any rub, gallop. no murmur. Abdominal exam: Soft and mild tenderness on left with normal bowel sounds. Extremities: Warm to touch with no leg edema. There is no cyanosis or clubbing. Neurological: Awake, alert, and oriented to time, place, and person. Normal gross motor po wer. There is no asterixis. Access : PD cath in place, site is benign Lab Results Component Value Date BUN 32 (H) 12/09/2018 CREATININE 13.6 (H) 12/09/2018 EGFR 3 (L) 12/09/2018 NA 139 12/09/2018 K 3.6 12/09/2018 CL 98 (L) 12/09/2018 CO2 29 12/09/2018 CA 8.3 (L) 12/09/2018 PHOS 6.1 (H) 12/08/2018 MG 3.1 (H) 12/08/2018 ALB 4.9 12/07/2018 HGB 10.2 (L) 12/09/2018 I/O last 3 completed shifts: In: 67352 [P.O.:1200; I.V.:2902; Other:39604] Out: 68023 [Other:89598] Assessment: Ms. Oconnor is a 38 y.o. female patient with ESRD, PD. Admitted for Possible peritonitis Anemia of ESRD hypermag hyperphos hypoK Potassium 40mEq po x 1 dose 12/08 Recommendations: Daily PD, UF as tolerated Abx per ID team No acute need for ANGELA Protein supplements stressed Low phos in diet & use of Phos binders stressed Strict I/O and Daily Weights Encourage IS We discussed the case with the primary team at the time of this encounter. BALJIT Guerrier Frandy Baxter ARNP - 12/08/2018 11:45 AM PSTFormatting of this note might be different from the origina l. Procedures by BALJIT Guerrier at 12/08/18 1145 Author: BALJIT Guerrier Service: Nephrology Author Type: Nurse Practitioner Filed: 12/08/18 1418 Date of Service: 12/08/18 1145 Status: Attested Award Machine Operator: BALJIT Guerrier (Nurse Practitioner) Cosigner: Chago Rey MD at 12/16 2604 Procedure Orders: 1. Peritoneal Dialysis ([facility]) [[id number]] ordered by Chago Rey MD at 12/07/182043 Attestation signed by Chago Rey MD at 12/16/18 1801 I have seen the patient with Demar SMILEY & personally and independently examined her; I have discussed the case with the CHILDREN'S TUTOR. I agree with his findings & documentation. BALJIT Guerrier, who is in-training for Inpatient Nephrology, started the documentat ion. Note, review of records, exam, recs, plan, discussions were performed, completed by sofiya arguello on 12/08. Chago Rey MD Hospital Problem List: Principal Problem: Peritonitis (HCC) Active Problems: Abdominal pain ESRD on peritoneal dialysis Leukocytosis The patient says that she feels 'ok' today. she denies any chest pain, dyspnea . her urine output is noted. Admitted for Possible peritonitis She presented with stomach pain x 4 days, nausea and vomiting worsening, low po intake for a few days. PD fluid yesterday was clear with some fibrin, no blood or cloudiness. Little dizziness, no loc, no falls. Home PD Rx is: 6 fills, 2L, 1.5hrs each. 1.5% last night (12/06). UF from PD today is: 800mL The following portions of the patient's history were reviewed and updated as appropriate: l aboratory data, radiologic studies, allergies, current medications, and problem list. Scheduled Meds: amLODIPine 2.5 mg Oral Nightly cefTAZidime 500 mg Intravenous Daily ergocalciferol 50,000 Units Oral Weekly heparin (porcine) 5000 unit/0.5mL 5,000 Units Subcutaneous 2 times per day sevelamer 1,600 mg Oral TID WC Continuous Infusions: lactated ringers 75 mL/hr at 12/08/18 0125 PRN Meds:.acetaminophen OR acetaminophen, calcium carbonate, HYDROcodone-acetaminophen, LORazepam, morphine, ondansetron OR ondansetron, polyethylene glycol, zolpidem BP 137/86 (BP Location: Left upper arm) | Pulse 91 | Temp 98.5 F (36.9 C) (Oral) | R enmanuel 18 | Wt 79.5 kg (175 lb 3.2 oz) | SpO2 98% | BMI 32.04 kg/m General appearance: Pleasant, not in acute distress. Lungs: Clear to auscultation. There are no wheezes. Heart: Regular rate and rhythm without any rub, gallop. no murmur. Abdominal exam: Soft and tender with normal bowel sounds. Extremities: Warm to touch with no leg edema. There is no cyanosis or clubbing. Neurological: Awake, alert, and oriented to time, place, and person. Normal gross motor po wer. There is no asterixis. Access : PD cath in place, site is benign Lab Results Component Value Date BUN 35 (H) 12/08/2018 CREATININE 13.4 (H) 12/08/2018 EGFR 3 (L) 12/08/2018 NA 138 12/08/2018 K 3.1 (L) 12/08/2018 CL 95 (L) 12/08/2018 CO2 25 12/08/2018 CA 8.1 (L) 12/08/2018 PHOS 6.1 (H) 12/08/2018 MG 3.1 (H) 12/08/2018 ALB 4.9 12/07/2018 HGB 10.7 (L) 12/08/2018 I/O last 3 completed shifts: In: 1752 [P.O.:600; I.V.:1052; IV Piggyback:100] Out: 177 [Other:177] Assessment: Ms. Oconnor is a 38 y.o. female patient with ESRD, PD. Admitted for Possible peritonitis Anemia of ESRD hypermag hyperphos hypoK Recommendations: Potassium 40mEq po x 1 dose today Abx per ID team No acute need for ANGELA Protein supplements stressed Low phos in diet & use of Phos binders stressed Strict I/O and Daily Weights Encourage IS Plan discharge tomorrow We discussed the case with the primary team at the time of this encounter. BALJIT Guerrier documented in th is encounter Consult Notes Lois Richmond MD - 12/08/2018 10:06 AM PSTFormatting of this note might be differen t from the original. Consult* by Lois Richmond MD at 12/08/18 1006 Author: Lois Richmond MD Service: Infectious Disease Author Type: Physician Filed: 12/08/18 1201 Date of Service: 12/08/18 1006 Status: Addendum Award Machine Operator: Lois Richmond MD (Physician) Related Notes: Original Note by Lois Richmond MD (Physician) filed at 12/08/18 1040 [facility] Service: Infectious Disease Initial Consult Note Date of Admission: 12/07/2018 Reason for Consultation: Suspected peritonitis, ESRD on PD Requesting Physician: Dr. Ginger Bass, Hospitalist History Obtained From: patient, chart review CHIEF COMPLAINT: Abdominal pain HISTORY OF PRESENT ILLNESS The patient is a 38 y.o. female with significant past medical history of end-stage renal di afshan on peritoneal dialysis. There had been prior hospital admissions in 2017 and 2018 for probable peritonitis but in all locations, there had been no positive peritoneal fluid cultu re. The patient presented to the ER on 12/07 with abdominal pain and chest discomfort from dry h eaving. She had abdominal pain, nausea and vomiting for 4 days and had been unable to eat f or 2 days. In the ER, temperature was 98.1F, heart rate 77/m, blood pressure 138/98, respiratory rat e of 20, oxygen saturation 99 percent. Patient had globally tender abdomen at time of presen tation but with no rebound or guarding. ER workup: WBC 26,340 with 78 percent neutrophils, 10 percent bands. Platelet count 484,00 0. CRP 2.5 BUN 35/creatinine 13.7, glucose 131 Total bilirubin 0.2, albumin 4.9, AST 15, ALT 11, alkaline phosphatase 126 Initial cardiac enzymes were negative D-dimer 0.34 CT of the abdomen and pelvis without contrast showed 4.5 cm right ovarian/adnexal mass desc ribed to be stable. Stable renal atrophy, no fluid collection adjacent prolonged course of t he catheter, no obstruction, no fluid collection, diverticulosis with possible low grade pro ximal colitis Blood cultures and peritoneal dialysate fluid had been sent for analysis/culture IV Zosyn was given in the ER; she was kept on IV ceftazidime with consideration of possibl e SBP. Nephrology was consulted. Patient has been afebrile overnight. She was tachycardic to 124/m last night; the tachycard ia has improved and she has remained normotensive. She states feeling better today with improved abdominal pain, nausea and vomiting. She has been able to tolerate po intake this morning. She denies having diarrhea. There had been no sick contacts. She denies having had cloudy peritoneal dialysate. She is no longer making ur ine. She has no upper respiratory symptoms, cough, dyspnea, chest pain. She has no back pain, ar thralgias, new skin lesions. REVIEW OF SYSTEMS Review of Systems 12 point ROS negative unless specified above Past Medical History Diagnosis Date Diverticulosis GERD (gastroesophageal reflux disease) Hypercalcemia 09/07/2017 Hyperphosphatemia 10/28/2015 Hypocalcemia 10/28/2015 Itching 10/28/2015 Metabolic acidosis 10/28/2015 Obesity Peritonitis associated with peritoneal dialysis (HCC) 01/24/2017 Uremia 10/28/2015 Past Surgical History Procedure Laterality Date ESOPHAGOGASTRODUODENOSCOPY N/A 09/10/2017 Procedure: ESOPHAGOGASTRODUODENOSCOPY; Surgeon: Beena Peters MD; Location: [facility]; Service: Gastroenterology; Laterality: N/A; PERITONEAL CATHETER INSERTION N/A 10/28/2015 Procedure: LAPAROSCOPIC - PERITONEAL DIALYSIS CATH INSERTION; Surgeon: Mundo Ramos MD; Lo cation: [facility] OR; Service: Vascular; Laterality: N/A; No Known Allergies Prescriptions Prior to Admission Medication Sig Dispense Refill Last Dose amLODIPine (NORVASC) 2.5 MG tablet Take 2.5 mg by mouth daily. 12/06/2018 at Unknown t gordy promethazine (PHENERGAN) 25 MG tablet Take 1 tablet by mouth every 6 (six) hours as nee ded for Nausea. 30 tablet 3 12/06/2018 at Unknown time ALPRAZolam (XANAX) 0.5 MG tablet Take 0.5 mg by mouth nightly as needed for Sleep. No t Taking at Unknown time ergocalciferol (DRISDOL) 26678 UNITS capsule Take 50,000 Units by mouth once a week. Taking at Unknown time gentamicin (GARAMYCIN) 0.1 % ointment Apply topically 3 (three) times daily. 15 g 1 Ta navneet at Unknown time HYDROcodone-acetaminophen (NORCO) 5-325 MG per tablet Take 1 tablet by mouth every 4 (f our) hours as needed. (Patient not taking: Reported on 06/07/2018) 10 tablet 0 Not Taking at Unknown time LORazepam (ATIVAN) 1 MG tablet Take 1 mg by mouth every 8 (eight) hours as needed for A nxiety. Not Taking at Unknown time ondansetron (ZOFRAN) 8 MG tablet Take 1 tablet by mouth every 8 (eight) hours as needed for Nausea. (Patient not taking: Reported on 06/07/2018) 30 tablet 11 Not Taking at Unknown time potassium chloride SA (K-DUR,KLOR-CON) 20 MEQ tablet Take 1 tablet by mouth daily. (Pat ient not taking: Reported on 06/07/2018) 30 tablet 3 Not Taking at Unknown time sevelamer (RENVELA) 800 MG tablet Take 2 tablets by mouth 3 (three) times daily with me als. 180 tablet 1 Taking at Unknown time zolpidem (AMBIEN) 5 MG tablet Take 1 tablet by mouth nightly as needed for Sleep (march epeat once in 1 hr if initial dose not effective). (Patient not taking: Reported on 8) 10 tablet 0 Not Taking at Unknown time Scheduled Medications amLODIPine 2.5 mg Oral Nightly cefTAZidime 500 mg Intravenous Daily ergocalciferol 50,000 Units Oral Weekly heparin (porcine) 5000 unit/0.5mL 5,000 Units Subcutaneous 2 times per day sevelamer 1,600 mg Oral TID WC Continuous Infusions lactated ringers 75 mL/hr at 12/08/18 0125 PRN Medications acetaminophen OR acetaminophen, calcium carbonate, HYDROcodone-acetaminophen, LORazepam , morphine, ondansetron OR ondansetron, polyethylene glycol, zolpidem Family History Problem Relation Age [...] file Social History Narrative Lives in [facility], [facility], no falls, full code PHYSICAL EXAM Vital Signs: BP 124/77 | Pulse 85 | Temp 98.1 F (36.7 C) (Oral) | Resp 18 | Wt 81.5 kg (179 lb 1 0.8 oz) | SpO2 98% | BMI 32.86 kg/m Temp: [97.3 F (36.3 C)-98.8 F (37.1 C)] 98.1 F (36.7 C) (12/08 944) BP: (105-158)/(59-98) 124/77 (12/08 944) Heart Rate: [75-124] 85 (12/08 944) Resp: [18-22] 18 (12/08 944) SpO2: [93 %-100 %] 98 % (12/08 944) Weight: [79.5 kg (175 lb 3.2 oz)-81.5 kg (179 lb 10.8 oz)] 81.5 kg (179 lb 10.8 oz) (12/08 944) Physical Exam Vital signs have been reviewed Gen.: Pleasant female, obese, not in acute distress HEENT: Normocephalic. Anicteric sclera. No conjunctival lesions. EOM intact. No nasal mucos al lesions. No sinus tenderness. No tragal tenderness. Moist oral mucosa with no oral thrush or ulcers. No pharyngeal hyperemia or exudates. Supple neck with no cervical lymphadenopath y Lungs: No adventitious breath sounds Cardiovascular: Normal rate. Regular rhythm. No murmur or rubs Abdomen: Peritoneal dialysis catheter site - dressing dry and intact; no drainage. No abdom inal wall erythema, warmth. Positive bowel sounds. Soft. No tenderness, rebound or guarding. No palpable masses Skin: No rash Musculoskeletal: No inflamed looking joints Neurologic: Oriented 3. Motor strength intact upper and lower extremities Psychiatric: Appropriate mood and affect DATA CBC: Lab Results Component Value Date WBC 18.78 (H) 12/08/2018 RBC 3.76 12/08/2018 HGB 10.7 (L) 12/08/2018 HCT 32.9 (L) 12/08/2018 MCV 87.4 12/08/2018 MCH 28.5 12/08/2018 MCHC 32.7 12/08/2018 RDW 44.6 12/08/2018 PLT 376 12/08/2018 MPV 8.1 12/08/2018 DIFFTYPE AUTOMATED 12/08/2018 WBC: Lab Results Component Value Date WBC 18.78 (H) 12/08/2018 NEUTABSMAN 20.55 (H) 12/07/2018 NEUTROABS 15.94 (H) 12/08/2018 NEUTROMAN 78 12/07/2018 LYMPHOABS 2.37 12/07/2018 LYMPHOMAN 9 12/07/2018 LYMPHSABS 1.88 12/08/2018 LYMPHOPCT 10.02 12/08/2018 MONOABSMAN 0.53 12/07/2018 MONOMAN 2 12/07/2018 MONOPCT 4.59 12/08/2018 EOSINOABS 0.28 03/17/2018 EOSINOMAN 2 03/17/2018 EOSABS 0.02 12/08/2018 EOSPCT 0.13 12/08/2018 BASOABSMAN [...] ALT 11 12/07/2018 EGFR 3 (L) 12/08/2018 Last 3 Troponin: Lab Results Component Value Date TROPONINI 0.026 12/08/2018 TROPONINI 0.026 12/07/2018 TROPONINI 0.026 12/07/2018 CPK: Lab Results Component Value Date CKTOTAL 146 12/07/2018 CKMB: Lab Results Component Value Date CKMB 1.7 12/07/2018 HgBA1c: Lab Results Component Value Date HGBA1C [...] fluid Gram stain with no organisms, culture in process 12/07 blood cultures in process 12/08 MRSA nasal PCR negative Radiology data: [...] Sign Date/Time: 12/07/2018 4:36 PM Transthoracic echocardiogram in process PROBLEM LIST Principal Problem: Peritonitis (HCC) Active Problems: Abdominal pain ESRD on peritoneal dialysis Leukocytosis ASSESSMENT & PLAN Suspected peritonitis on presentation -Patient has end-stage renal disease on peritoneal dialysis. She had prior episodes of swapnil picion for peritonitis but not confirmed based on cultures -Presenting symptoms of abdominal pain, nausea, vomiting x 4 days duration with poor oral intake for 2 days. She was afebrile but WBC on presentation was 26,340 with 78 percent neutr ophils, 10 percent bands -peritoneal cell count is not consistent with SBP; Gram stain shows no organisms with cul ture in process. Case discussed with Dr. Rey that because pt is on peritoneal dialysis, will Rx as early peritonitis PD related -Patient received IV Zosyn yesterday in the ER; she is currently on IV ceftazidime with WB C trending down but still 18.78k. Abdominal exam currently benign with improving GI symptom s; no diarrhea -CT of abdomen/pelvis without contrast shows diverticulosis but not diverticulitis with po ssible low-grade proximal colitis. Right ovarian/adnexal mass is described to be stable -Recommended transitioning IV ceftazidime to cefoxitin for empiric Gram-negative/anaerobic coverage. MRSA nasal PCR negative Case discussed with Dr. Edwards at time of clinical encounter and later in the day with Dr. Rey Code Status: Full Code Primary Care Physician: JUAN F WHITLEY Thank you for allowing me to participate in the care of this patient. LOIS RICHMOND MD 12/08/2018 [email or web address], Chago Beck MD - 12/07/2018 5:56 PM PST Consults by Chago Rey MD at 12/07/181755 Author: Chago Rey MD Service: Nephrology Author Type: Physician Filed: 12/16/18 184 Date of Service: 12/07/181755 Status: Signed Award Machine Operator: Chago Rey MD (Physician) Hospital Problem List: Active Problems: * No active hospital problems. * I was asked by the primary team to see Ms. Oconnor in consult today. As the admitting/consu lting team is familiar with her case, I will not state her past history in detail. Briefly, she is a 38 y.o. female patient with history as delineated in the Past Medical & Surgical Hi story sections. She was admitted with possible peritonitis. I was called in to evaluate her for opinion on urgent dialysis need. She presented with stomach pain x 4 days, nausea and vomiting worsening, low po intake for a few days. PD fluid yesterday was clear with some fibrin, no blood or cloudiness. Little dizziness, no loc, no falls. Home PD Rx is: 6 fills, 2L, 1.5hrs each. 1.5% last night. History & ROS obtained from : patient, primary team, chart review. The patient has history of ESRD, PD. She says that she feels 'poor' today. No history of blurred vision tinnitus, h eadache, fever, chills, or cough. No nausea, vomiting, abdominal pain, diarrhea, melena, or hematochezia. No chest pain, palpitation, dizziness, loss of consciousness, orthopnea, par oxysmal nocturnal dyspnea, or leg edema. No dysuria, [...] negative. sodium chloride 10 mL Intravenous Q8H piperacillin-tazobactam No intake/output data recorded. No intake/output data recorded. P.E. BP 122/78 | Pulse 118 | Temp 98.1 F (36.7 C) (Oral) | Resp 20 | Wt 79.7 kg (175 lb 11.3 oz) | SpO2 94% | BMI 32.14 kg/m General appearance: Pleasant, not in acute distress. Neck: Supple without tracheal deviation or jugular venous distension. Head and ENT: Head is atraumatic. The oropharynx is without erythema or thrush. Eyes: Anicteric. The extraocular muscle movements are normal. Lungs: Clear to auscultation bilaterally. There are no wheezes. Heart: Regular rate and rhythm without any rub, gallop. No murmur. Abdominal exam: Soft and diffuse tenderness with moderate pressure, with normal bowel soun ds. Musculoskeletal: No costovertebral angle tenderness bilaterally. Extremities: Warm to touch with no leg edema. There is no cyanosis. Skin: There are no rashes, petechiae, or ecchymosis. Neurological: Awake, alert, and oriented to time, place, and person. Normal gross motor po wer. There is no asterixis. Psychiatric: The patient s behavior is normal. Judgment and thought content are normal. Access: PD cath in place, site is benign Lab Results Component Value Date BUN 35 (H) 12/07/2018 CREATININE 13.70 (H) 12/07/2018 EGFR 3 (L) 12/07/2018 NA 141 12/07/2018 K 3.9 12/07/2018 CL 96 (L) 12/07/2018 CO2 25 12/07/2018 CA 9.4 12/07/2018 PHOS 5.7 (H) 12/07/2018 MG 3.2 (H) 12/07/2018 ALB 4.9 12/07/2018 HGB 13.6 12/07/2018 Assessment/Recommendations: Ms. Goatsen is a 38 y.o. female patient with ESRD, PD. Presented with: abd pain Admitted with: possible peritonitis VOLUME: EABV is ok No IVF need No diuresis indicated Advise total fluid restriction of 1.5 L per 24 hrs There is no acute UF indication; but will plan gentle UF with PD tonight Given her tendency for anasarca: Encourage adequate intake & close dietitian F/U. Encourage ambulation safely. Encourage the adequate use of an incentive spirometer. 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 Dose all of her meds to her current daily PD. Continue to avoid all kinds of nephrotoxins. Target euvolumia with a MAP>75 mmHg as possible. BLOOD PRESSURE: controlled UF will help stabilize it too Monitor BP's closely ELECTROLYTES: acceptable Reinforce lytes protocol ALBUMIN: No hypoalbuminemia ANEMIA: none No ANGELA need F/U: Also seen and examined during dialysis. Tolerating it well. Access: no issues. UF: gentle as tolerated. Next dialysis: daily PD. I discussed today with Ms. Oconnor the meaning of her presenting sxs and the interaction of that with her PD. I discussed with the ED team then the primary team the case at the time of this encounter. I spent 70 total minutes today in interviewing & examining the patient, reviewing & updatin g the patient's chart, formulating a plan, in addition to patient education and discussions with the primary/consulting team. Thank you Carol Crespo & Kali for the opportunity to see this patient in consult today. Please do not hesitate to call me at any time with questions or concerns. CHAGO REY MD documented in this enc ounter ED Notes Conversion Transaction, Provider Unknown - 12/07/2018 5:54 PM PSTFormatting of this note m ight be different from the original. ED Notes by Pennie Cohen RN at 12/07/181753 Author: Pennie Cohen RN Service: Emergency Department Author Type: Registered Nurse Filed: 12/07/189 Date of Service: 01/28/19 1754 Status: Signed Award Machine Operator: Pennie Cohen RN (Registered Nurse) Lab called to notify RN of dialysis cath sample not being enough to test both cell count an d cultures. DR. Crespo notified and order to just to cultures of the sample obtained. Lab ca lled and notified. Pennie Cohen RN 12/07/18 175 onver patric Transaction, Provider Unknown - 12/07/2018 3:52 PM PST ED Notes by Brittany Johnson at 12/07/181551 Author: Brittany Johnson Service: (none) Author Type: Application Support Administrator Filed: 12/07/181551 Date of Service: 12/07/181551 Status: Signed Award Machine Operator: Brittany Johnson (Application Support Administrator) EKG completed and shown to Dr. Cherie Johnson 12/07/181551 [email or web address] , Fito Lance MD - 12/07/2018 3:42 PM PSTFormatting of this note might be different from th e original. ED Provider Notes by Fito Crespo MD at 12/07/181541 Author: Fito Crespo MD Service: -Emergency Author Type: Physician Filed: 12/07/181817 Date of Service: 12/07/181541 Status: Signed Award Machine Operator: Fito Crespo MD (Physician) Procedure Orders: 1. Critical Care [[id number]] ordered by Fito Crespo MD at 12/07/181817 [facility] Department of Emergency Medicine No flowsheet data found. History of Present Illness Patient Identification Ramona Oconnor is a 38 y.o. female. Patient information was obtained from patient, spouse/partner and past medical records. History/Exam limitations: none. Patient presented to the Emergency Department Car Chief Complaint Chief Complaint Patient presents with Abdominal Pain pt's spouse states "she might be starting a peritoneal infection". started yesterday, wo rse throughout the night". Chest Pain from "dry heaves" Patient presents for evaluation of abdominal pain and chest pain. The symptom onset was ove r the last 24 hours or so, and has had a worsening course. The pain is located throughout th e entire abdomen, mostly upper abdomen, and is rated as severe in severity currently and at it's worst. The pain is made worse by palpation and is relieved by nothing. No worsening pa in with movement, no relief with holding still. Additional symptoms: Chest pain described as "someone sitting on my chest" without signifi cant dyspnea. Has had nausea with vomiting also. Denies diarrhea. No blood noted in emesi s. Patient denies: Fever, chills, palpitations. Prior history of similar: "dry heaves". Care prior to arrival consisted of nothing with no spontaneous relief. Pt has ESRD and has peritoneal dialysis managed by Dr. Rey. PCP: JUAN F WHITLEY NEPHROLOGY: CANDIDO Past Medical History Diagnosis Date Diverticulosis GERD (gastroesophageal reflux disease) Hypercalcemia 09/07/2017 Hyperphosphatemia 10/28/2015 Hypocalcemia 10/28/2015 Itching 10/28/2015 Metabolic acidosis 10/28/2015 Obesity Peritonitis associated with peritoneal dialysis (HCC) 01/24/2017 Uremia 10/28/2015 Past Surgical History Procedure Laterality Date ESOPHAGOGASTRODUODENOSCOPY N/A 09/10/2017 Procedure: ESOPHAGOGASTRODUODENOSCOPY; Surgeon: Beena Peters MD; Location: [facility]; Service: Gastroenterology; Laterality: N/A; PERITONEAL CATHETER INSERTION N/A 10/28/2015 Procedure: LAPAROSCOPIC - PERITONEAL DIALYSIS CATH INSERTION; Surgeon: Mundo Ramos MD; Lo cation: [facility]; Service: Vascular; Laterality: N/A; Prior to Admission medications Medication Sig Start Date End Date Taking? Authorizing Provider amLODIPine (NORVASC) 2.5 MG tablet Take 2.5 mg by mouth daily. Yes Historical Provider promethazine (PHENERGAN) 25 MG tablet Take 1 tablet by mouth every 6 (six) hours as needed for Nausea. 03/09/18 Yes Lukas Lnyn MD-R3 ALPRAZolam (XANAX) 0.5 MG tablet Take 0.5 mg by mouth nightly as needed for Sleep. Histo rical Provider ergocalciferol (DRISDOL) 97459 UNITS capsule Take 50,000 Units by mouth [...] not taking: Reported on 06/07/2018 03/09/18 03/09/19 Lukas Lynn MD-R3 sevelamer (RENVELA) 800 MG tablet Take 2 tablets by mouth 3 (three) times daily with meals. 01/25/17 06/07/18 Shad aB MD zolpidem (AMBIEN) 5 MG tablet Take [...] file Social History Narrative Lives in [facility], [facility], no falls, full code Family History Problem Relation Age of Onset Other (see comments) Mother healthy Diabetes Father Breast cancer Maternal Grandmother Review of Systems Constitutional: Negative for: fever, chills Eyes: Negative for: vision changes Throat: Negative for: mouth sores Cardiovascular/Respiratory: As above Gastrointestinal: As above Genitourinary: ESRD patient Musculoskeletal: Negative for: new joint pain Skin: Negative for: rash Neuro and psych: Negative for: fainting Endocrine/Heme/Lymph: Negative for: swollen lymph nodes All other review of systems negative except as mentioned. Physical Exam BP (!) 138/98 (BP Location: Left upper arm) | Pulse 77 | Temp 98.1 F (36.7 C) (Oral) | Resp 20 | Wt 79.7 kg (175 lb 11.3 oz) | SpO2 99% | BMI 32.14 kg/m . Pulse Oximetry Interpretation: Normal VS: Elevated BP, else normal. AFebrile. General: Alert, writhing in bed back and forth, appears very uncomfortable. Eyes: Normal inspection, pupils equal and round, non-icteric ENT: Nose normal Mouth has moist mucous membranes Neck: Normal inspection Supple No lymphadenopathy No meningismus Cardiovascular: Tachycardic rate at time of my exam (about 125bpm), normal rhythm. No murm ur. Respiratory: Normal lung sounds. No rales, rhonchi, or wheezing. Abdomen: Obese, tender globally but without rebound tenderness or specific guarding. PD ca th noted in right side. Back: Normal inspection. No CVA tenderness. Extremities: No edema or tenderness Skin: Color normal Warm and dry No rash Neuro: No motor deficit No sensory deficit Medical Decision Making and Emergency Department Course ED Department Course Pt with generalized abdominal pain and chest pain with history of PD. Despite clear risks with the PD the patient does not have peritoneal signs. Of course it could be atypical. Th e chest pain report is also a confounder. DDx is necessarily very wide. Will give IVFB, an tiemetics, morphine, and check labs, CT, etc. D-dimer normal. Mg high at 3.2, Phos also predictably high at 5.7. Lipase normal. TnI no rmal. Cardiac panel shows very high leukocytosis at 26.3 with 10% bandemia. Other CMP findi ngs as would be expected with ESRD and peritoneal dialysis. I am concerned about this leuk ocytosis and bandemia in the absence of being able to get a HD RN to get peritoneal fluid so I will draw the fluid myself and start Zosyn. Using sterile technique I assisted in fluid aspiration. Only about 2mL aspirated - is light red and clear. BP 158/85 (BP Location: Left upper arm) | Pulse 113 | Temp 97.2 F (36.7 C) (Oral) | Resp 22 | Wt 79.7 kg (175 lb 11.3 oz) | SpO2 99% | BMI 32.14 kg/m Labs advises there is not enough fluid to do cell count and culture so I have requested matilde cox. Will discuss case with pt's security compliance specialist. 1806 - Discussed case with Dr. Rey, he is sending PD RN for a new sample. He will consul t. I will admit to hospitalist service. 1816 - Discussed case with Dr. Coles (hospitalist), will admit. I will add MRSA screen . Because of the severity of the patient's medical condition the patient required my complete undivided attention for multiple prolonged periods during the course of the ED stay. Jaylen ny see also RN notes for further ED course information. BP 108/81 | Pulse 102 | Temp 98.1 F (36.7 C) (Oral) | Resp 20 | Wt 79.7 kg (175 lb 11.3 oz) | SpO2 99% | BMI 32.14 kg/m Records Reviewed Old medical records. Prior ED visits for unrelated issues. Laboratory Evaluation [facility] CARD PANEL W/O TRP (ED ONLY) - Abnormal; Notable for the following: Result Value WBC 26.34 (*) PLT 484 (*) Neutrophils Absolute 20.55 (*) Bands Manual 2.63 (*) Metamyelocytes Absolute 0.26 (*) CHLORIDE 96 (*) ANION GAP AGAP 24 (*) GLUCOSE 131 (*) BUN 35 (*) CREATININE 13.70 (*) TOTAL PROTEIN 8.7 (*) ALK PHOS 126 (*) EGFR 3 (*) All other components within normal limits C-REACTIVE PROTEIN - Abnormal; Notable for the following: CRP 2.5 (*) All other components within normal limits MAGNESIUM - Abnormal; Notable for the following: MAGNESIUM 3.2 (*) All other components within normal limits PHOSPHOROUS - Abnormal; Notable for the following: PHOSPHORUS 5.7 (*) All other components within normal limits FLUID CULT W/GRAM STAIN TROPONIN I LIPASE D-DIMER, QUANTITATIVE BRAIN NATRIURETIC PEPTIDE Radiology and EKG Evaluation 12-lead ECG: Time of exam 1545. Interpreted independently by me. Rate: 115. Rhythm: sin us tachycardia. Ectopy: none. Howe: nml with poor R-wave progression. Intervals: nml. I nfarct/Ischemia: nonspecific. Technique: Good. Interpretation: Sinus tachycardia with nonspecific ST/T changes and poor R-wave progressio n. Prior ECG for comparison: Tachycardia and R-wave findings new since [address]/T ch anges were present also on that study. Imaging Results CT abdomen pelvis without contrast (Final result) Result time 12/07/18 16:59:18 Final result by Santos Gil MD (12/07/18 16:59:18) Impression: 1. The intrinsically complex and/or dense 4.5 [...] Santos Gil Sign Date/Time: 12/07/2018 4:56 PM Narrative: CT ABDOMEN AND PELVIS WITHOUT CONTRAST CLINICAL INFORMATION: Abdominal pain. COMPARISON: CT ABDOMEN PELVIS WO CONTRAST (06/05/2018); US PELVIS WITH ENDOVAGINAL (04/09/2018); CT ABDOMEN PELVIS W CONTRAST (03/16/2018); PROCEDURE: Axial images through the abdomen and pelvis. Multiplanar reconstructions. At least one of the following CT dose optimization techniques were used: Automated exposure control; Adjustment of mA and/or kV according to patient size; Use of iterative reconstruction technique. FINDINGS: LUNG BASES: No significant pulmonary abnormality. No pleural effusion or pneumothorax. ABDOMEN Liver and Biliary: Solid organ evaluation suboptimal without contrast. No visible abnormality in the liver or gallbladder. Pancreas-normal to noncontrast technique Spleen: Normal. Adrenal glands: Stable adenoma in the left adrenal gland measuring about 12 mm. No new lesion Kidneys: Atrophic on both sides, without solid lesion or stone. No hydronephrosis. No adjacent inflammatory changes ABDOMEN AND PELVIS Bowel: No small bowel or colonic dilation or adjacent inflammation. No appendiceal dilation or inflammation. Diverticulosis without evidence of diverticulitis. There is some non high-grade wall thickening of the proximal large bowel, from about the ileo cecum to the hepatic flexure Vessels: Abdominal aorta normal in caliber. No aneurysm. Veins not assessed without contrast. Lymph Nodes: No adenopathy. Peritoneum and Retroperitoneum: No ascites or free air. No significant retroperitoneal abnormality. PELVIS Genitourinary: A complex mass with some Dense features in the right adnexa and/or comprising the right ovary. About 4.5 cm in size. Stable when compared to the prior examination from May of last year Urinary bladder is not distended The pelvic catheter is intact, without evidence of inflammation or fluid collection nearby BODY WALL Soft Tissues: No bowel or inflamed fat containing hernia, mass or hemorrhage. Bones: No acute fracture or vertebral end plate destruction. No lytic or blastic lesion. XR Chest PA and Lateral (Final result) Result time 12/07/18 16:40:01 Final result by Zev Conner MD (12/07/18 16:40:01) Impression: Negative chest. Signed by: Zev Conner Sign Date/Time: 12/07/2018 4:36 PM Narrative: CHEST TWO VIEWS CLINICAL INFORMATION: Chest pain. COMPARISON: XR CHEST 2 VIEW (06/05/2018); END ESOPHOGOGASTRODUODENOSCOPY IMAGING (09/10/2017); XR ABDOMEN ACUTE SERIES (06/04/2017); FINDINGS: Heart, lungs and vessels normal. No pneumothorax, pleural effusion or adenopathy. No significant bone abnormality. ED Diagnoses Final diagnoses Spontaneous bacterial peritonitis (HCC) Bandemia ESRD on peritoneal dialysis (HCC) Disposition: ED Disposition ED Disposition Condition Comment Admit/Observation Bed request special needs: dialysis Diagnosis?: abdominal pain, leukocytosis, PD Follow-up Information Follow up With Specialties Details Why Contact Info Juan F Whitley MD Family Medicine [address] [place] [address] Chago Rey MD Nephrology [address] [place] [id number] Discharge Medications: New Prescriptions No new medications Procedures Additional Documentation Critical Care Performed by: FITO CRESPO Authorized by: FITO CRESPO Critical care provider statement: Critical care time (minutes): 35 Critical care time was exclusive of: Separately billable procedures and treating other p atients Critical care was necessary to treat or prevent imminent or life-threatening deterioratio n of the following conditions: Renal failure and sepsis Critical care was time spent personally by me on the following activities: Development o f treatment plan with patient or surrogate, discussions with consultants, discussions with p critical access hospitalary provider, evaluation of patient's response to treatment, examination of patient, obta ining history from patient or surrogate, ordering and performing treatments and intervention s, ordering and review of laboratory studies, pulse oximetry, re-evaluation of patient's con dition, review of old charts and ordering and review of radiographic studies Fito Crespo MD 12/07/18 1818 onversion Transa ction, Provider Unknown - 12/07/2018 3:38 PM PST ED Notes by Carmen Mark RN at 12/07/18 1538 Author: Carmen Mark RN Service: (none) Author Type: Registered Nurse Filed: 12/07/18 153 Date of Service: 12/07/18 1538 Status: Signed Award Machine Operator: Carmen Mark RN (Registered Nurse) MD Crespo at bedside. Carmen Mark RN 12/07/18 1539 onver patric Transaction, Provider Unknown - 12/07/2018 3:25 PM PST ED Notes by Carmen Mark RN at 12/07/18 1525 Author: Carmen Mark RN Service: (none) Author Type: Registered Nurse Filed: 12/07/18 1538 Date of Service: 12/07/18 152 Status: Signed Award Machine Operator: Carmen Mark RN (Registered Nurse) Pt presents to ED with c/o ABD pain. Pt reports having aching to cramping diffuse ABD pain beginning last night. Pt receives daily peritoneal dialysis at home. Pt concerned for poss ible infection in her peritoneal dialysis catheter. C/o chest tightness, nausea and vomitin g. Denies fevers. Pt gowned, side rails up x2, warm blanket provided. Call light within re ach. at bedside. Carmen Mark RN 12/07/18 1538 onver patric Transaction, Provider Unknown - 12/07/2018 3:14 PM PST ED Notes by Brittany Johnson at 12/07/18 151 Author: Brittany Johnson Service: (none) Author Type: Application Support Administrator Filed: 12/07/181515 Date of Service: 12/07/181513 Status: Signed Award Machine Operator: Brittany Johnson (Application Support Administrator) After taking pts vitals this tech put both side rails up because pt started throwing hersel f from side to side on the bed and then started pushing herself out of the top of the bed. This tech told patient she needed to stop so that she could stay safely in bed. Pt stated " I can't help it." Curtain and door left open to pts room. Brittany Johnson 12/07/18 151 docume nted in this encounter Miscellaneous Notes Plan of Care - Conversion Transaction, Provider Unknown - 12/10/2018 11:04 AM PST Plan of Care by Yaneth Tran RN at 12/10/181103 Author: Yaneth Tran RN Service: (none) Author Type: Registered Nurse Filed: 12/10/181103 Date of Service: 12/10/181103 Status: Signed Award Machine Operator: Yaneth Tran RN (Registered Nurse) Problem: Safety [...] free. Bed in lowest locked position with call light within reach. Visualized hourly. lan o f Care - Conversion Transaction, Provider Unknown - 12/09/2018 7:49 PM PSTFormatting of teresa s note might be different from the original. Plan of Care by Molina Cobb RN at 12/09/181948 Author: Molina Cobb RN Service: (none) Author Type: Registered Nurse Filed: 12/09/181948 Date of Service: 12/09/181948 Status: Signed Award Machine Operator: Molina Cobb RN (Registered Nurse) Problem: Safety Goal: Patient [...] non-skid footwear provided. Outcome: Progressing Bed in lowest position and wheels locked. Call light and bedside table w/i reach. Pt calls appropriately and ambulates independently in room. lan o f Care - Conversion Transaction, Provider Unknown - 12/09/2018 3:38 PM PSTFormatting of thi s note might be different from the original. Plan of Care by Marixa Juarez RN at 12/09/181537 Author: Marixa Juarez RN Service: (none) Author Type: Registered Nurse Filed: 12/09/181537 Date of Service: 12/09/181537 Status: Signed Award Machine Operator: Marixa Jaurez RN (Registered Nurse) Problem: Pain Goal: Patient's pain/discomfort is manageable Assess and monitor patient's pain using appropriate pain scale. Collaborate with interdisci plinary team and initiate plan and interventions as ordered. Re-assess patient's pain level approximately 1-2 hours after pain management intervention. Premedicate as needed. Outcome: Adequate for Discharge Pt reports her pain has improved greatly. PRN reglan given for nausea. Pt states relief f rom nausea and states she feels ready for discharge. MD notified. lan o f Care - Conversion Transaction, Provider Unknown - 12/08/2018 7:50 PM PSTFormatting of teresa martinez note might be different from the original. Plan of Care by Molina Cobb RN at 12/08/181949 Author: Molina Cobb RN Service: (none) Author Type: Registered Nurse Filed: 12/08/181949 Date of Service: 12/08/181949 Status: Signed Award Machine Operator: Molina Cobb RN (Registered Nurse) Problem: Pain Goal: Patient's pain/discomfort is manageable Assess and monitor patient's pain using appropriate pain scale. Collaborate with interdisci plinary team and initiate plan and interventions as ordered. Re-assess patient's pain level approximately 1-2 hours after pain management intervention. Premedicate as needed. Outcome: Progressing Pain currently tolerable. Pt encouraged to monitor pain and call when pain begins increasin g. lan o f Care - Conversion Transaction, Provider Unknown - 12/08/2018 9:44 AM PSTFormatting of teresa martinez note might be different from the original. Plan of Care by Majo Gonzalez RN at 12/08/1844 Author: Majo Gonzalez RN Service: (none) Author Type: Registered Nurse Filed: 12/08/18 0945 Date of Service: 12/08/1844 Status: Signed Award Machine Operator: Majo Gonzalez RN (Registered Nurse) Daily Care Daily care needs are met Progressing Daily care needs are assessed and monitored throughout shift. Patient is able to express da caesar care needs and potential discharge needs. Patient is currently resting in bed comfortably. Safety Patient will be injury free during hospitalization Progressing Patient is informed and educated regarding fall risk and PRN pain medication. Patient abhishek carroll agreed to utilize call light with each need to ambulate. Bed in low locked position with call light within reach. lan o f Care - Conversion Transaction, Provider Unknown - 12/08/2018 1:35 AM PSTFormatting of thi s note might be different from the original. Plan of Care by Zana Zabala RN at 12/08/18134 Author: Zana Zabala RN Service: (none) Author Type: Registered Nurse Filed: 12/08/18134 Date of Service: 12/08/18134 Status: Signed Award Machine Operator: Zana Zabala RN (Registered Nurse) Pain Goal: Patient s [...] within reach. Patient uses call light appropriately. Potential for Compromised Skin Integrity Goal: Outcome: Progressing Provide teaching at level of understanding. Turn patient every 2 hours. Keep skin clean and dry Monitor patient's hygiene practices. Check incision/wound site every 4 hours for redness, tenderness or drainage. Encouraged frequent repositioning every 2 hours and frequent ambulation in [facility] TID. docume nted in this encounter Plan of [...] LAB | | | | performed at [facility], [address] | | | | | | [address], | | | | | | [place] [address] | | | | | | | [...] | | | | | | MDRD IDLA traceable | | | | | | equation.Testing | | | | | | performed at [facility], [address] | | | | | | [facility], | | | | | | [place] [address] | | | | + + + [...] m/s LVOT VTI: 21.59 cm MV A Adriana: 1.25 m/s | | | MV DecT: 340.74 ms MV E Adriana: 0.78 m/s MV E/A Ratio: 0.62 | | | Septal e': 0.05 m/s Septal E/e': 15.43 Lateral e': 0.07 | | | m/s Lateral E/e': 10.76 HR: 85.10 BPM PV maxP.84 mmHg | | | PV meanP.23 mmHg PV Vmax: 0.98 m/s PV Vmean: 0.72 m/s | | | PV VTI: 19.85 cm RV S': 0.11 m/s Operations Manager Assistant: NAVJOT | | | Authenticated by: Imtiaz Mari MD Report Date/Time: 12-08-2018 | | | 17:48:59 | | + + + + + | Procedure Note | + + | Endy, Rad Conversion - 06/22/2019 11:30 PM PDT Patient Name: Shlomo OCONNOR of | | : 1980 Performing Physician: Imtiaz Mari | | INDICATIONS p | | leuritic chest pain [...] mlLAESV Index (A-L): 26.00 ml/m2LAAs A2C: 16.18 [id number] | | A-L A2C: 41.14 mlLALs A2C: 5.40 cmLAAs A4C: 18.51 as1AXVUT A-L A4C: 51.64 | | mlLALs A4C: 5.63 cmTAPSE: 1.80 cmAV maxP.66 mmHgAV meanP.54 mmHgAV Vmax: | | 1.38 m/Monica Vmean: 1.00 m/Monica VTI: 26.68 cmAVA Vmax: 2.35 cm2AVA (VTI): 2.52 | | df3XAPX Vmax: 0.00 cm2/m2AVAI (VTI): 0.00 cm2/m2LVOT maxP.36 mmHgLVOT meanPG: | | 2.11 mmHgLVSI Dopp: 37.20 ml/m2LVSV Dopp: 67.33 mlLVOT Vmax: 1.04 m/sLVOT Vmean: | | 0.67 m/sLVOT VTI: 21.59 cmMV A Adriana: 1.25 m/sMV DecT: 340.74 msMV E Adriana: 0.78 | | m/sMV E/A Ratio: 0.62Septal e': 0.05 m/sSeptal E/e': 15.43Lateral e': 0.07 | | m/sLateral E/e': 10.76HR: 85.10 BPMPV maxP.84 mmHgPV meanP.23 mmHgPV | | Vmax: 0.98 m/sPV Vmean: 0.72 m/sPV VTI: 19.85 cmRV S': 0.11 m/s Operations Manager Assistant: | | MWAuthenticated by: Imtiaz Mari [facility] Date/Time: 12-08-2018 17:48:59 IMPRESSION: 1. | | [...] |LVOT VTI: 21.59 cm | |MV A Adriana: 1.25 m/s | |MV DecT: 340.74 ms | |MV E Adriana: 0.78 m/s | |MV E/A Ratio: 0.62 | |Septal e': 0.05 m/s | |Septal E/e': 15.43 | |Lateral e': 0.07 m/s | |Lateral E/e': 10.76 | |HR: 85.10 BPM | |PV maxP.84 mmHg | |PV meanP.23 mmHg | |PV Vmax: 0.98 m/s | |PV Vmean: 0.72 m/s | |PV VTI: 19.85 cm | |RV S': 0.11 m/s | | | |Operations Manager Assistant: MW | |Authenticated by: Imtiaz Mari MD [...] | | | | | | at [facility];[address] | | [address];[place] [address] | | | | + + + [...] + +---------+ + + External Lab: BLAINE (12/08/2018 6:03 AM PST) + + + [...] | | | Basophils | performed at [facility], [address] | [address] | LAB | | | | [address], | | | | | | [place] [address] | | | | + + + [...] EXTERNAL | | | | performed at [facility], [address] | | LAB | | | | [address], | | | | | | [place] [address] | | | | + + + [...] | | | | | [place] [address] | | | | + + + [...] | | | | | | MDRD IDLA traceable | | | | | | equation.Testing | | | | | | performed at [facility], [address] | | | | | | [facility], | | | | | | [place] [address] | | | | + + + + + + + + | Specimen | + + | Blood specimen | | (specimen) | + + + +---------+ + + | Performing | Address | City/State/Zipcode | Phone Number | | Organization | | | | + +---------+ + + | EXTERNAL LAB | | | | + +---------+ + + MRSA NAAT (12/08/2018 1:18 AM PST) + + | Specimen | + + | | + + + + + | Narrative | Performed At | + + + | S[facility](NOSE) MRSA | EXTERNAL LAB | | PCR NEGATIVE Testing | | | performed at [facility];[address] [place] [address];[place] [address] | | + + + + +---------+ [...] | | | | | | at [facility];[address] [place] [address] | | | | | | Blvd;[place] [address] | | | | + + + [...] APPEARANCE SLIGHTLY HAZY RBC'S | | | [address] TOTAL | | | NUCLEATED CELLS 151 NEUTROPHILS | | | 69 LYMPHOCYTES | | | 5 MONOCYTES/MACROPHAGES | | | 26 CELLS COUNTED | | | 100 Testing performed at [facility];[address] [place] [address];[place], [place] | | | [address] | | + + + + +---------+ [...] | Procedure Note | + + | Nedy, Rad Conversion - 06/22/2019 11:30 PM PDT [...] (500), | | | | | | non linear editor Rashel Polanco | | | | [...] | | | Qual | performed at [facility];[address] | ng/mL | LAB | | | | [facility];[place] | | | | | | [id number] ON 12/25 | | | | | [...] | | | MANUAL | performed at [facility];[address] | mg/L FEU | LAB | | | [address];[place], [place] | | | | | | [address] | | | | + + + [...] EXTERNAL | | | | performed at [facility];[address] | | LAB | | | | [address];[place] | | | | | | [address] | | | | + + + [...] EXTERNAL | | | | performed at [facility];[address] | | LAB | | | | [address];[place], [place] | | | | | | [address] | | | | + + + [...] EXTERNAL | | | | performed at [facility] | | LAB | | | | [address];[place] | | | | | | [address] | | | | + + + [...] EXTERNAL | | | | performed at [facility];[address] | | LAB | | | | [address];[place], [place] | | | | | | [address] | | | | + + + [...] LAB | | | | performed at [facility] | | | | | | [address];[place] | | | | | | [address] | | | | + + + [...]
--- OUTSIDE RECORDS SUMMARY | ~2020-05-11 | XMS | Encounter Summary ---
Demographics + + + | Address | [address] | | | [place] [address] | + + + | Home Phone [...] [place], [place] | | | | | [address] | | + + + + + | Lydia Palm | ECON | [place], [place] | | | | | [address] | | + + + + + | melinda METZ" | ECON | [place], [place] | | | [place]ba | | [address] | | + + + + + | Jose C Oconnor | ECON | [place] | | | | | [place] | | | | | [address] | | + + + + + Care Team Providers + +------+ + | Care Maintenance Shop Welder Name | Role | Phone | + +------+ + PCP | Unavailable | + +------+ + Encounter Details +--------+ + + + + | Date | Type | Department | Care Team | Description | +--------+ + + + + | 10/26/ | Hospital | [facility] | Santos Chi MD | | | 2014 | Encounter | [facility] | [address] [facility] | | | | | SPECIMEN PROCESS | [address] [place], [place] | | | | | [address] | [address] | | | | | [place] | | | | | | [address] | Cesar Gatica MD | | | | | [phone] | [address] [facility] | | | | | | [place] [address] | | | | | | [phone] | | | | | | | [...] Completed: 10/29/2015 Physician: SANTOS CHI Copy | [facility] | | to: Ami Chavez MD DIAGNOSIS: [...] received; each labeled and designated "Goatsen, kidney wainwright". | | | Specimen received in formalin [...] are not | | | performed. A: 96755, 18107(9), 23092, 42087, | | | 87670, 21226, 95409(9) <CR>, 24103(d), 76801(d) <CR>, 23318(d), | | | 04172(d) <CR> PROCEDURES/ADDENDA | | | ELECTRON MICROSCOPY [...] | Adonay Jung MD Testing performed at: [place] | | | [facility] Vance Dewitt M.D., | | | Director [address] [place] [address] [address] [place] [address] Phone: | | | | | + + + + + + + + | Performing | Address | City/State/Zipcode | Phone Number | | Organization | | | | + + + + + | DANIEL [facility] | [address] [place] [address] | [place] [address] | | | [facility] | | | | | LABORATORY | | | | + + + + + documented in this encounter Visit Diagnoses Not on filedocumented in this encounter
--- OUTSIDE RECORDS SUMMARY | ~2020-05-11 | XMS | Encounter Summary ---
Demographics + + + | Address | [address] | | | [place] [address] | + + + | Home Phone [...] [place], [place] | | | | | [address] | | + + + + + | Lydia Palm | ECON | [place], [place] | | | | | [address] | | + + + + + | melinda METZ" | ECON | [place], [place] | | | reba | | [address] | | + + + + + | Jose C Oconnor | ECON | [place] | | | | | [place] | | | | | [address] | | + + + + + Care Team Providers + +------+ + | Care Vertical Mill Operator Name | Role | Phone | + +------+ + | Unknown, Physician | PCP | | + +------+ + Reason for Visit +--------+--------+ + | Reason | Onset | Comments | | | Date | | +--------+--------+ + | Other | 12/22/ | fistula report | | | 2020 | | +--------+--------+ + Encounter Details +--------+ + + + + | Date | Type | Department | Care Team | Description | +--------+ + + + + | 12/22/ | Telephone | [facility] | Qasim Pederson MD | Other (fistula | | 2020 | | VASCULAR SURGERY | [address] | report ) | | | | [address] | [place], [place] | | | | | [place], [place] | [address] | | | | | [address] | | | | | | [phone] | | | +--------+ + + + [...] Telephone Encounter - Samira Dixon RN - 12/22/2019 8:30 AM PSTOp note faxed to [email or web address] tovar. elephone Encounter - Sue Kapoor - 12/22/2019 8:20 AM PSTFalicity, is calling regarding Other (fistula report ) and would like a call back. Additional Call Details: Caller stated they are needing the fistula report from 12/16. She stated patient is currently in their office. Report can be faxed to [phone] If this is a symptom based call, was patient offered triage? Not Applicable If this is a symptom based call and you were unable to immediately transfer the call to a garfield sadler import/export freight forwarder was caller made aware that if at any time she feels it is an emergency they sh ould call 911 or go to the nearest emergency room? not applicable documented in this encounter Plan of Treatment Not on filedocumented as of this encounter Visit Diagnoses Not on filedocumented in this encounter
--- OUTSIDE RECORDS SUMMARY | ~2020-05-11 | XMS | Encounter Summary ---
Demographics + + + | Address | [address] | | | [place] [address] | + + + | Home Phone [...] [place], [place] | | | | | [address] | | + + + + + | Lydia Palm | ECON | [place], [place] | | | | | [address] | | + + + + + | melinda METZ" | ECON | [place], [place] | | | [place] | | [address] | | + + + + + | Jose C Oconnor | ECON | [place] | | | | | [place] | | | | | [address] | | + + + + + Care Team Providers + +------+ + | Care Picking Machine Operator Name | Role | Phone [...] | | | ([facility]) Wound | | | | [...] + + | 07/08/ | Preadmit | [facility] | PoiQasim MD | | | 2019 | Visit | CENTER PREADMIT | [address] | | | | | CLINIC [address] | [place], [place] | | | | | [place], [place] | [id number] | | | | | [address] | | | | | | [phone] | | | +--------+ + + + [...] + + + documented in this encounter Miscellaneous Notes Preadmit Clinic Note - Felicitas Bah RN - 07/08/2019 9:00 AM PDTPreadmit Clinical R rosangela Pt meets METS of 4. OR today. All labs being run stat. Will get EKG. Pt stated she too k omeprazole and promethazine at 6am today, with a sip of water. Limb alert: left arm with f istula. Pt stated she does not make urine, and will obtain serum HCG stat.Electronically sig brody by Felicitas Bah RN at 07/08/2019 10:03 AM PDTdocumented in this encounter Plan of Treatment [...] [facility] | | | | performed at [facility];[address] | | | | [address];[place], [place] | | | | | | [address] | | | | + + + + + + + + | Specimen | + + | Blood | + + + + + + + | Performing | Address | City/State/Zipcode | Phone Number | | Organization | | | | + + + + + | [facility] | [address] | [place] [address] | [phone] | + + + + + Basic [...] 6 (L)Comment: GFR <60: | >60 | [facility] | | | GFR | CHRONIC [...] | | | | | | MDRD IDDC traceable | | | | | | equation.Testing | | | | | | performed at [facility] | | | | | | [facility];[place], [place] | | | | | | [address] | | | | + + + + + + + + | Specimen | + + | Blood | + + + + + + + | Performing | Address | City/State/Zipcode | Phone Number | | Organization | | | | + + + + + | [facility] | [address] | [place] [address] | [phone] | + + + + + CBC [...] 0.08Comment: Testing | 0.00 - 0.10 | [facility] | | | Absolute | performed at [facility];[address] | [address] | LABORATORY | | | | [address];[place] | | | | | | [address] | | | | + + + + + + + + | Specimen | + + | Blood | + + + + + + + | Performing | Address | City/State/Zipcode | Phone Number | | Organization | | | | + + + + + | [facility] | [address] | [place] [address] | [phone] | + + + + + ECG [...]
--- OUTSIDE RECORDS SUMMARY | ~2020-05-11 | XMS | Encounter Summary ---
Demographics + + + | Address | [address] | | | [place] [address] | + + + | Home Phone [...] [place], [place] | | | | | [address] | | + + + + + | Lydia Palm | ECON | [place], [place] | | | | | [address] | | + + + + + | melinda METZ" | ECON | [place], [place] | | | [place] | | [address] | | + + + + + | Jose C Oconnor | ECON | [place] | | | | | [place] | | | | | [address] | | + + + + + Care Team Providers + +------+ + | Care Driver Operator Name | Role | Phone | [...] + + | 01/03/ | Telephone | [facility] | Samira Dixon, | Surgery Appointment | | 2020 | | VASCULAR SURGERY | RN | | | | | [address] | | | | | | [place], [place] | | | | | | [address] | | | | | | [phone] | | | +--------+ + + + [...] Encounter - Samira Dixon RN - 01/03/2020 12:46 PM PSTPatient called back and is agreeable to reschedule to 01/11/20, but would like to be 2nd case as she is coming from [facility] and cannot be here by 6:30. OR called and moved patient. documented in this encounter Plan of Treatment Not on filedocumented as of this encounter Visit Diagnoses Not on filedocumented in this encounter
--- OUTSIDE RECORDS SUMMARY | 2020-05-11 15:30 | XMS ---
PreManage Notification: JOHN REEVES Security Fleet Administrator Events No recent Security Events currently on file CRITERIA MET - [facility] - Has Care Guidelines - PDMP CARE PROVIDERS ROWENA VANEGAS Physician Hospital Administrative Assistant: Surgical 01/29/2019-Current PHONE: Unknown Laci Calzada Community Health Worker 06/09/2019-Current [place] - PHONE: [phone] ANGELITA SAMPSON [facility] 06/08/2018-Current PHONE: Unknown [facility] 08/23/2019-Current PHONE: [phone] Vicente has no Care Guidelines for this patient. Care History Medical/Surgical 08/23/2019 [facility] - PLEASE REVIEW PATIENT PDMP BEFORE PRESCRIBING NARCOTICS TO PATIENT- PHYSICIAN DISCRETION - PATIENT HAS A HX OF CHRONIC CONDITIONS PLEASE REFER PATIENT TO PCP OFFICE FOR PAIN MANAGEMENT. PATIENT CURRENTLY HAS DIALYSIS- FRIDAY, FRIDAY, FRIDAY- DR REY IS PATIENT TALENT MANAGEMENT MANAGER. 08/23/2019 [facility] PATIENT- [facility] ELIGIBLE P[facility]. [facility] SAME DAY FOR APTS IF PATIENT CALLS FIRST THING IN THE MORNING. 02/01/2019 [facility] - [facility]W RECEIVED CASE MANAGEMENT CONSULT- DUE TO ED UTILIZATION. - CHW HAS CONTACT PATIENT PCP OFFICE AND PATIENT HAS BEEN FOLLOWING UP WITH PCP. - [facility] DIS[facility] WITH [facility]. E.D. VISIT COUNT (12 MO.) 3 [facility] 4 [facility]. TOTAL 7 NOTE: Visits indicate total known visits. 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 kidn - End stage renal disease - Anxiety disorder, unspecified 04/05/2020 22:45 [facility] [place] TYPE: Emergency COMPLAINT: - VOMITING AND NAUSEA DIAGNOSES: - Anxiety disorder, unspecified - Unspecified abdominal pain - Other alf (current) drug therapy - Essential (primary) hypertension 11/05/2019 17:06 [facility] TYPE: Emergency DIAGNOSES: - Vascular Access Problem - Hemorrhage, not elsewhere classified - Hyperkalemia 09/03/2019 12:02 [facility] TYPE: Emergency DIAGNOSES: - Infection following a procedure, unspecified, init - Infection and inflammatory reaction due to other cardiac and - Arm Pain 08/22/2019 17:39 [facility] TYPE: Emergency COMPLAINT: - ABD PAIN, VOMITING DIAGNOSES: - Dependence on renal dialysis - Essential (primary) hypertension - Other alf (current) drug therapy - Unspecified abdominal pain 08/10/2019 12:55 [facility] TYPE: Emergency DIAGNOSES: - Generalized abdominal pain - End stage renal disease - Abdominal Pain - Dependence on renal dialysis - Hyperkalemia - Other noninflammatory disorders of ovary, fallopian tube and INPATIENT VISIT TRACKING (12 MO.) [facility]03[facility]2019 [facility] DIAGNOSES: - Other mechanical [...] - End stage renal disease 08/26/2019 17:38 [facility] Surgery DIAGNOSES: - Hyperkalemia - [...] g - Gastro-esophageal reflux disease without esophagitis [email or web address]
--- NOTE | 2020-05-12 15:39 | EKG ---
[facility] [address] [place] [address] Signed Normal sinus rhythm Right superior axis deviation Pulmonary disease pattern Right ventricular hypertrophy Abnormal ECG When compared with ECG of 07-APR-2020 11:21, No significant change was found Confirmed by ACE RAJPUT MD ([id number]) on 05/12/2020 3:38:52 PM Electronically Signed By: ACE RAJPUT MD 05/12/20 1539 PATIENT NAME: JOHN REEVES Electrocardiogram DATE OF : 76 PHYSICIAN: ACE RAJPUT MD REPORT #: [id number] REPORT IS CONFIDENTIAL AND NOT TO BE RELEASED WITHOUT AUTHORIZATION
== END ==
LOC: ED 15:26
DX: K46.9 Unspecified abdominal hernia without obstruction or gangrene (principal); D72.829 Elevated white blood cell count, unspecified; I10 Essential (primary) hypertension; Z79.899 Other long term (current) drug therapy
CPT/HCPCS: 36415; 71045; 74177; 80053; 83605; 83690; 83735; 85025; 93005; 93010; 96361; 96375; 96376; 99285-25; J1170; J2270; J2405; J7040; Q9967

== ENCOUNTER 2020-05-21 10:38 | Emergency (ER) | payer OTHER ==
[~2020-05-21] VITALS: Ht 157.5 cm; Wt 96.6 kg
--- OUTSIDE RECORDS SUMMARY | 2020-05-21 10:40 | XMS ---
PreManage Notification: JOHN REEVES Security Oncology Rn Events No recent Security Events currently on file CRITERIA MET - [facility] - Has Care Guidelines - PDMP - [facility] - 2 Visits in 30 Days CARE PROVIDERS ROWENA VANEGAS Physician Cadd Instructor: Surgical 01/29/2019-Current PHONE: Unknown Laci Calzada Community Health Worker 06/09/2019-Scotty Ervina - PHONE: [phone] ANGELITA SAMPSON [facility] 06/08/2018-Current PHONE: Unknown Name [facility] 08/23/2019-Current PHONE: [phone] Vicente has no Care Guidelines for this patient. Care History Medical/Surgical 08/23/2019 [facility] - PLEASE REVIEW PATIENT PDMP BEFORE PRESCRIBING NARCOTICS TO PATIENT- PHYSICIAN DISCRETION - PATIENT HAS A HX OF CHRONIC CONDITIONS PLEASE REFER PATIENT TO PCP OFFICE FOR PAIN MANAGEMENT. 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 08/23/2019 [facility] PATIENT- [facility] ELIGIBLE P[facility] SAME DAY FOR APTS IF PATIENT CALLS FIRST THING IN THE MORNING. 02/01/2019 [facility] - CHW RECEIVED CASE MANAGEMENT CONSULT- DUE TO ED UTILIZATION. - CHW HAS CONTACT PATIENT PCP OFFICE AND PATIENT HAS BEEN FOLLOWING UP WITH PCP. - CHW DIS[facility] WITH [facility]. E.Pedro VISIT COUNT (12 MO.) [address] TOTAL 8 NOTE: Visits indicate total known visits. ED/UCC VISIT TRACKING (12 MO.) 05/21/2020 10:39 [facility] [place] TYPE: Emergency COMPLAINT: - ABDOMINAL PAIN 05/11/2020 15:27 [facility] [place] TYPE: Emergency COMPLAINT: - ABD PAIN DIAGNOSES: - Unspecified abdominal hernia without obstruction or gangrene - Essential (primary) hypertension - Unspecified abdominal pain - Other fpc (current) drug therapy - Elevated white blood cell count, unspecified 04/07/2020 11:10 [facility] [place] TYPE: Emergency COMPLAINT: - ANXIETY, CHEST/STOMACH PAIN DIAGNOSES: - Other fpc (current) drug therapy - Dependence on renal dialysis - Hypertensive chronic kidney disease with stage 5 chronic kidn - End stage renal disease - Anxiety disorder, unspecified 04/05/2020 22:45 [facility] [place] TYPE: Emergency COMPLAINT: - VOMITING AND NAUSEA DIAGNOSES: - Anxiety disorder, unspecified - Unspecified abdominal pain - Other termite exterminator helper (current) drug therapy - Essential (primary) hypertension 11/05/2019 17:06 [facility] TYPE: Emergency DIAGNOSES: - Vascular Access Problem - Hemorrhage, not elsewhere classified - Hyperkalemia 09/03/2019 12:02 [facility] TYPE: Emergency DIAGNOSES: - Infection following a procedure, unspecified, init - Infection and inflammatory reaction due to other cardiac and - Arm Pain 08/22/2019 17:39 [facility] [place] TYPE: Emergency COMPLAINT: - ABD PAIN, VOMITING DIAGNOSES: - Dependence on renal dialysis - Essential (primary) hypertension - Other termite exterminator helper (current) drug therapy - Unspecified abdominal pain 08/10/2019 12:55 [facility] TYPE: Emergency DIAGNOSES: - Generalized abdominal pain - End stage renal disease - Abdominal Pain - Dependence on renal dialysis - Hyperkalemia - Other noninflammatory disorders of ovary, fallopian tube and INPATIENT VISIT TRACKING (12 MO.) [facility]12/2020 [facility] [facility]: [facility] Services DIAGNOSES: - Elevated white blood cell count, unspecified - Unspecified abdominal hernia without obstruction or gangrene - Generalized abdominal pain - End stage renal disease - Hyperkalemia 09/03/2019 12:02 [facility] TYPE: Internal Medicine DIAGNOSES: - Other mechanical [...] - End stage renal disease 08/26/2019 17:38 [facility] TYPE: Vascular Surgery DIAGNOSES: - Hyperkalemia - [...] g - Gastro-esophageal reflux disease without esophagitis [email or web address]
== END 2020-05-21 14:15 | disposition home or self-care (01) ==
LOC: ED 10:38
DX: N83.201 Unspecified ovarian cyst, right side (principal); I10 Essential (primary) hypertension; Z87.891 Personal history of nicotine dependence; Z79.899 Other long term (current) drug therapy
CPT/HCPCS: 74177; 80053; 83690; 84703; 85025; 96374; 96375; 99284-25; J1170; J1885; J2405; J7121; Q9967

== ENCOUNTER 2020-05-28 09:54 | Emergency (ER) | payer OTHER ==
[~2020-05-28] VITALS: Ht 157.5 cm; Wt 96.6 kg
[2020-05-28] MEDS ORDERED: PERCOCET 5-3251 EACH PO (13:11)
== END 2020-05-28 13:30 | disposition home or self-care (01) ==
LOC: ED 09:54
DX: R10.32 Left lower quadrant pain (principal); E11.9 Type 2 diabetes mellitus without complications; I10 Essential (primary) hypertension; Z87.891 Personal history of nicotine dependence; Z79.899 Other long term (current) drug therapy
CPT/HCPCS: 74177; 80053; 83690; 85025; 96374; 96375; 99284-25; J1170; J2405; J7040; Q9967

== ENCOUNTER 2020-10-21 22:39 | Emergency (ER) | payer OTHER ==
[~2020-10-21] VITALS: Ht 157.5 cm; Wt 96.6 kg
[~2020-10-21 22:39] MED LIST changes: +PERCOCET 5-3251 EACH PO
--- OUTSIDE RECORDS SUMMARY | 2020-10-21 22:42 | XMS ---
PreManage Notification: JOHN REEVES Security Wrecking Mechanic Events No recent Security Events currently on file CRITERIA MET - PDMP CARE PROVIDERS ROWENA VANEGAS Physician Metal Bonding Helper: Surgical 01/29/2019-Current PHONE: Unknown Laci Calzada Community Health Worker 06/09/2019-Current [place] - PHONE: [phone] ANGELITA SAMPSON [facility] 06/08/2018-Current PHONE: Unknown Name Unknown Clinic/Center 08/23/2019-Current PHONE: [phone] Vicente has no Care Guidelines for this patient. Care History Medical/Surgical 08/23/2019 [facility] - PLEASE REVIEW PATIENT PDMP BEFORE PRESCRIBING NARCOTICS TO PATIENT- PHYSICIAN DISCRETION - PATIENT HAS A HX OF CHRONIC CONDITIONS PLEASE REFER PATIENT TO PCP OFFICE FOR PAIN MANAGEMENT. 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 08/23/2019 [facility] PATIENT- [facility] ELIGIBLE PLEASE REFER PATIENT TO [facility] FOR NON EMERGENT MEDICAL NEEDS. [facility] CAN SEE PATIENTS SAME DAY FOR APTS IF PATIENT CALLS FIRST THING IN THE MORNING. 02/01/2019 [facility] - CHW RECEIVED CASE MANAGEMENT CONSULT- DUE TO ED UTILIZATION. - CHW HAS CONTACT PATIENT PCP OFFICE AND PATIENT HAS BEEN FOLLOWING UP WITH PCP. - CHW DISCUSSED THE ED UTILIZATION WITH [facility] AND WITH PATIENT. E.D. [facility] (12 MO.) [facility] TOTAL 7 NOTE: Visits indicate total known visits. ED/UCC VISIT TRACKING (12 MO.) 10/21/2020 22:41 [facility] [place] TYPE: Emergency COMPLAINT: - POSSIBLE INFECTION ON RT ARM 05/28/2020 09:55 [facility] [place] TYPE: Emergency COMPLAINT: - ABD PAIN, CONSTIPATION DIAGNOSES: - Essential (primary) hypertension - Personal history of nicotine dependence - Other care home (current) drug therapy - Left lower quadrant pain - Type 2 diabetes mellitus without complications 05/21/2020 10:39 [facility] [place] TYPE: Emergency COMPLAINT: - ABDOMINAL PAIN DIAGNOSES: - Unspecified ovarian cyst, right side - Personal history of nicotine dependence - Other care home (current) drug therapy - Essential (primary) hypertension - Other ovarian cyst, right side - Lower abdominal pain, unspecified 05/11/2020 15:27 [facility] [place] TYPE: Emergency COMPLAINT: - ABD PAIN DIAGNOSES: - Unspecified abdominal hernia without obstruction or gangrene - Essential (primary) hypertension - Unspecified abdominal pain - Other care home (current) drug therapy - Elevated white blood cell count, unspecified 04/07/2020 11:10 [facility] [place] TYPE: Emergency COMPLAINT: - ANXIETY, CHEST/STOMACH PAIN DIAGNOSES: - Other care home (current) drug therapy - Dependence on renal dialysis - Hypertensive chronic kidney disease with stage 5 chronic kidney disease or end stage renal disease - End stage renal disease - Anxiety disorder, unspecified 04/05/2020 22:45 [facility] [place] TYPE: Emergency COMPLAINT: - VOMITING AND NAUSEA DIAGNOSES: - Anxiety disorder, unspecified - Unspecified abdominal pain - Other intermediate school teacher (current) drug therapy - Essential (primary) hypertension [facility]05/2019 [facility]: Emergency DIAGNOSES: - Vascular Access Problem - Hemorrhage, not elsewhere classified - Hyperkalemia INPATIENT VISIT TRACKING (12 MO.) 05/12/2020 00:55 Brendan Mcfarland [facility] TYPE: Surgical Services DIAGNOSES: - Elevated white blood cell count, unspecified - Unspecified abdominal hernia without obstruction or gangrene - Generalized abdominal pain - End stage renal disease - Hyperkalemia [email or web address]
[2020-10-21] MEDS ORDERED: OXYCODONE HCL5 MG PO (23:01)
[2020-10-21] MEDS ORDERED: STOOL SOFTENER240 MG PO (23:02)
[2020-10-21] MEDS ORDERED: DIALYVITE 8001 EACH PO (23:02)
[2020-10-21] MEDS ORDERED: NORCO 5-325 TA1 EACH PO (23:15)
== END 2020-10-21 23:32 | disposition home or self-care (01) ==
LOC: ED 22:39
DX: T82.848A Pain due to vascular prosthetic devices, implants and grafts, initial encounter (principal); I10 Essential (primary) hypertension; Z87.891 Personal history of nicotine dependence
CPT/HCPCS: 99283

== ENCOUNTER 2022-01-31 08:15 | Emergency (ER) | payer MEDICARE, OTHER ==
[~2022-01-31] VITALS: Ht 157.5 cm; Wt 96.6 kg
[~2022-01-31 08:15] MED LIST changes: +DIALYVITE 8001 EACH PO; +OXYCODONE HCL5 MG PO; +STOOL SOFTENER240 MG PO
--- NOTE | 2022-02-01 14:54 | EKG ---
[facility] [address] [facility] [place] [address] Signed Normal sinus rhythm Low voltage QRS Nonspecific T wave abnormality Abnormal ECG When compared with ECG of 11-MAY-2020 20:16, Questionable change in QRS axis T wave inversion more evident in Anterolateral leads Confirmed by NICK KINCAID MD ([id number]) on 02/01/2022 2:54:17 PM Electronically Signed By: NICK KINCAID MD 02/01/22 1454 PATIENT NAME: JOHN REEVES Electrocardiogram DATE OF : 76 PHYSICIAN: NICK KINCAID MD REPORT #: [id number] REPORT IS CONFIDENTIAL AND NOT TO BE RELEASED WITHOUT AUTHORIZATION
== END 2022-01-31 12:16 | disposition short-term general hospital (02) ==
LOC: ED 08:15
DX: L51.1 Stevens-Johnson syndrome (principal); R51.9 Headache, unspecified; E87.5 Hyperkalemia; Z20.822 Contact with and (suspected) exposure to COVID-19; I10 Essential (primary) hypertension; Z87.891 Personal history of nicotine dependence; Z79.899 Other long term (current) drug therapy
CPT/HCPCS: 36415; 80053; 85025; 93005; 93010; 96374; 96375; 96376; 99284-25; C9803; J1100; J1170; J1200; J2405; U0003

== ENCOUNTER 2022-05-19 11:26 | Emergency (ER) | payer MEDICARE, OTHER ==
[~2022-05-19] VITALS: Ht 157.5 cm; Wt 80.0 kg
== END 2022-05-19 13:20 | disposition home or self-care (01) ==
LOC: ED 11:26
DX: F41.9 Anxiety disorder, unspecified (principal); I12.0 Hypertensive chronic kidney disease with stage 5 chronic kidney disease or end stage renal disease; N18.6 End stage renal disease; Z99.2 Dependence on renal dialysis; Z87.891 Personal history of nicotine dependence; Z79.899 Other long term (current) drug therapy
CPT/HCPCS: 99283; A9270

== ENCOUNTER 2022-07-30 23:09 | Emergency (ER) | payer MEDICARE, OTHER ==
[~2022-07-30] VITALS: Ht 157.5 cm; Wt 73.0 kg
--- OUTSIDE RECORDS SUMMARY | 2022-07-30 23:12 | XMS ---
PreManage Notification: JOHN REEVES Security General Utility Machine Operator Events 1 event(s) in the past 18 months Most recent security events: Elopement at [facility] 06/13/2022 13:59 - Patient eloped before treatment completed. - Patient with suicidal and/or homicidal ideations eloped. - Patient eloped with IV in place. Details: PATIENT LWBS CRITERIA MET - PDMP - 6 ED Visits in 6 Months CARE PROVIDERS ROWENA VANEGAS Physician Peer Counselor: Surgical 01/29/2019-Current PHONE: Unknown Laci Calzada Community Health Worker 06/09/2019-Scotty [place]ath[place] - PHONE: [phone] ANGELITA SAMPSON [facility] 06/08/2018-Current PHONE: [phone] [facility] 08/23/2019-[facility] PHONE: [phone] Vicente has no Care Guidelines for this patient. Care History Medical/Surgical 08/23/2019 [facility] - PLEASE REVIEW PATIENT PDMP BEFORE PRESCRIBING NARCOTICS TO PATIENT- PHYSICIAN DISCRETION - PATIENT HAS A HX OF CHRONIC CONDITIONS PLEASE REFER PATIENT TO PCP OFFICE FOR PAIN MANAGEMENT. PATIENT CURRENTLY HAS DIALYSIS- FRIDAY, FRIDAY, FRIDAY- DR REY IS PATIENT DIE BARBER. 08/23/2019 [facility]FER [facility] FOR NON EMERGENT MEDICAL NEEDS. [facility] CAN SEE PATIENTS SAME DAY FOR APTS IF PATIENT CALLS FIRST THING IN THE MORNING. 02/01/2019 [facility] - CHW RECEIVED CASE MANAGEMENT CONSULT- DUE TO ED UTILIZATION. - CHW HAS CONTACT PATIENT PCP OFFICE AND PATIENT HAS BEEN FOLLOWING UP WITH PCP. - CHW DISCUSSED THE ED UTILIZATION WITH [facility] AND WITH PATIENT. E.[facility] VISIT COUNT (12 MO.) 3 [facility] 4 [facility] TOTAL 7 NOTE: Visits indicate total known visits. ED/UCC VISIT TRACKING (12 MO.) 07/30/2022 23:09 [facility] TYPE: Emergency COMPLAINT: - NAUSEA, ANXIETY [facility]13[facility]2022 19:[facility] DIAGNOSES: - COVID-19 - Anxiety - Hyperkalemia - End stage renal disease - Upper abdominal pain, unspecified - Decreased Appetite - Dependence on renal dialysis 06/13/2022 13:59 [facility] [place] TYPE: Emergency COMPLAINT: - ABD PAIN 05/19/2022 11:27 [facility] [place] TYPE: Emergency COMPLAINT: - ANXIETY DIAGNOSES: - Dependence on renal dialysis - Hypertensive chronic kidney disease with stage 5 chronic kidney disease or end stage renal disease - End stage renal disease - Anxiety disorder, unspecified - Other hat blocking machine operator (current) drug therapy - Personal history of nicotine dependence 01/31/2022 13:26 [facility] TYPE: Emergency DIAGNOSES: - Allergic Reaction - Allergy, unspecified, initial encounter - Localized edema - ? Maynard Marty syndrome 01/31/2022 08:16 [facility] [place] TYPE: Emergency COMPLAINT: - POSS ALLERGIC REACTION DIAGNOSES: - Essential (primary) hypertension - Rash and other nonspecific skin eruption - Maynard-Marty syndrome - Other hat blocking machine operator (current) drug therapy - Hyperkalemia - Headache, unspecified - Contact with and (suspected) exposure to COVID-19 - Personal history of nicotine dependence 09/19/2021 09:15 [facility] DIAGNOSES: - Infection and inflammatory reaction due to other cardiac and vascular devices, implants and grafts, initial encounter - Vascular Access Problem INPATIENT VISIT TRACKING (12 MO.) 01/31/2022 13:26 [facility]: Internal Medicine DIAGNOSES: - End stage renal disease - Allergy, unspecified, initial encounter - Hyperkalemia - Anemia in chronic kidney disease - Localized edema - Dependence on renal dialysis - Essential (primary) hypertension - Other disorders of phosphorus metabolism 09/19/2021 09:15 [facility] DIAGNOSES: - End stage renal disease - Hyperkalemia - Infection and inflammatory reaction due to other cardiac and vascular devices, implants and grafts, initial encounter - Dependence on renal dialysis [email or web address]
== END 2022-07-31 05:05 | disposition home or self-care (01) ==
LOC: ED 23:09
DX: F41.0 Panic disorder [episodic paroxysmal anxiety] (principal); I12.0 Hypertensive chronic kidney disease with stage 5 chronic kidney disease or end stage renal disease; N18.6 End stage renal disease; Z99.2 Dependence on renal dialysis; Z87.891 Personal history of nicotine dependence; Z79.899 Other long term (current) drug therapy; Z91.041 Radiographic dye allergy status
CPT/HCPCS: 36415; 71045; 80053; 83735; 84100; 85025; 96374; 96375; 96376; 99283-25; A9270-GY; J1885; J2060; J2405

== ENCOUNTER 2023-08-21 10:40 | Emergency (ER) | payer MEDICARE, OTHER ==
[~2023-08-21] VITALS: Ht 157.5 cm; Wt 100.0 kg
[~2023-08-21 10:40] MED LIST changes: +CITALOPRAM HBR10 MG PO; +HYDROXYZINE PAM25 MG PO; +LIDODERM1 EACH TOP; +RISPERIDONE1 MG PO
--- OUTSIDE RECORDS SUMMARY | 2023-08-21 10:43 | XMS ---
PreManage Notification: JOHN REEVES Security Engineering Secretary Events 1 event(s) in the past 18 months Most recent security events: Elopement at [facility] 06/13/2022 13:59 - Patient eloped before treatment completed. - Patient with suicidal and/or homicidal ideations eloped. - Patient eloped with IV in place. Details: PATIENT LWBS CRITERIA MET - [facility] - 2 Visits in 30 Days CARE PROVIDERS [facility]/[place] 08/23/2019-[facility] PHONE: [phone] Laci Calzada Community Health Worker 06/09/2019-[facility] PHONE: [phone] ROWENA VANEGAS Physician Contact Assembler: Surgical 01/29/2019-[facility] PHONE: Unknown ANGELITA SAMPSON Family [facility] 06/08/2018-Current PHONE: [phone] Vicente has no Care Guidelines for this patient. Care History Medical/Surgical 08/23/2019 [facility] - PLEASE REVIEW PATIENT PDMP BEFORE PRESCRIBING NARCOTICS TO PATIENT- PHYSICIAN DISCRETION - PATIENT HAS A HX OF CHRONIC CONDITIONS PLEASE REFER PATIENT TO PCP OFFICE FOR PAIN MANAGEMENT. 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 08/23/2019 [facility] · PATIENT- [place] ELIGIBLE · [facility]. · [facility] PATIENTS SAME DAY FOR APTS IF PATIENT CALLS FIRST THING IN THE MORNING. 02/01/2019 [facility] - CHW RECEIVED CASE MANAGEMENT CONSULT- DUE TO ED UTILIZATION. - CHW HAS CONTACT PATIENT PCP OFFICE AND PATIENT HAS BEEN FOLLOWING UP WITH PCP. - [facility] DISCUSSED THE ED UTILIZATION WITH [facility] AND WITH PATIENT. E.D. VISIT COUNT (12 MO.) 4 [facility] 1 [facility] TOTAL 5 NOTE: Visits indicate total known visits. ED/UCC VISIT TRACKING (12 MO.) 08/21/2023 10:41 [facility] TYPE: Emergency COMPLAINT: - SOB 08/12/2023 20:05 [facility] TYPE: Emergency COMPLAINT: - RT SIDED PAIN DIAGNOSES: - Dependence on renal dialysis - End stage renal disease - Exposure to other specified factors, initial encounter - Hypertensive chronic kidney disease with stage 5 chronic kidney disease or end stage renal disease - Other usp (current) drug therapy - Personal history of nicotine dependence - Radiographic dye allergy status - Strain of muscle and tendon of front wall of thorax, initial encounter - Unspecified abdominal pain 06/13/2023 20:51 [facility] TYPE: Emergency DIAGNOSES: - Panic disorder [episodic paroxysmal anxiety] - Anxiety - Dizziness - Shortness of Breath - Syncope 06/06/2023 08:33 [facility] TYPE: Emergency COMPLAINT: - CHEST PAIN DIAGNOSES: - Dependence on renal dialysis - Elevated white blood cell count, unspecified - End stage renal disease - Heart failure, unspecified - Hypertensive heart and chronic kidney disease with heart failure and with stage 5 chronic kidney disease, or end stage renal disease - Other lobsterman (current) drug therapy - Personal history of nicotine dependence - Radiographic dye allergy status - Vomiting, unspecified 10/25/2022 12:27 [facility] TYPE: Emergency COMPLAINT: - DIZZINESS DIAGNOSES: - Anxiety disorder, unspecified - Contact with and (suspected) exposure to COVID-19 - Essential (primary) hypertension - Other lobsterman (current) drug therapy - Pain, unspecified - Personal history of nicotine dependence - Radiographic dye allergy status INPATIENT VISIT TRACKING (12 MO.) 06/06/2023 14:30 [facility] JI (Liana Gaines) TYPE: Medical Surgical DIAGNOSES: - Acute respiratory failure with hypoxia - Acute stress reaction - Agoraphobia with panic disorder - Anemia in chronic kidney disease - Brief psychotic disorder - Dependence on renal dialysis - Elevated white blood cell count, unspecified - End stage renal disease - Hyperkalemia - Idiopathic sleep related nonobstructive alveolar hypoventilation - Nausea with vomiting, unspecified - Panic disorder [episodic paroxysmal anxiety] - nausea and vomiting [email or web address]
[2023-08-21 11:14] LABS: BASOPHILS 0.6 % (0-2); EOSINOPHILS 0.4 % (0-6); HEMATOCRIT 41.1 % (35.0-50.0); HEMOGLOBIN 13.2 g/dL (12.0-18.0); MCHC 32.1 g/dl (30-36); MCV 90.4 fl (81-99); MONOCYTES 6.1 % (0-12); NEUTROPHILS 81.9 % (39-80); PLATELET COUNT 237 K/uL (140-440); RBC 4.55 M/ul (4.3-5.7); RDW 15.9 (10.5-15.0)
[2023-08-21 11:31] LABS: ALBUMIN 2.8 g/dL (3.4-5.0); ALBUMIN/GLOBULIN RATIO 0.65 (1.1-2.4); ANION GAP 13.5 (7-21); BILIRUBIN, TOTAL 0.3 ng/dL (0.2-1.0); BUN/CREATININE RATIO 5.24 (6.0-28.6); CALCIUM 8.3 mg/dL (8.5-10.1); CREATININE, SERUM 7.05 mg/dL (0.55-1.02); MAGNESIUM 2.5 mg/dL (1.8-2.4); POTASSIUM 4.5 mmol/L (3.5-5.1); PROTEIN, TOTAL 7.1 g/dL (6.4-8.2)
[2023-08-21] MEDS ORDERED: HYDROCODON-ACE1 EA10 PO (15:45)
[2023-08-21 16:02] VITALS: BP 120/70
--- NOTE | 2023-08-22 06:23 | EKG ---
[facility] [address] [place] [address] Signed Normal sinus rhythm Nonspecific T wave abnormality Prolonged QT Abnormal ECG When compared with ECG of 06-JUN-2023 08:35, Vent. rate has decreased BY 55 BPM Nonspecific T wave abnormality, worse in Anterior leads Confirmed by REBECCA HERNANDEZ MD ([id number]) on 08/22/2023 6:23:37 AM Electronically Signed By: REBECCA HERNANDEZ 08/22/23 0623 PATIENT NAME: JOHN REEVES Electrocardiogram DATE OF : 76 PHYSICIAN: REBECCA HERNANDEZ REPORT #: [id number] REPORT IS CONFIDENTIAL AND NOT TO BE RELEASED WITHOUT AUTHORIZATION
== END 2023-08-21 15:55 | disposition home or self-care (01) ==
LOC: ED 10:40
PROVIDERS: Emergency Medicine
DX: R07.9 Chest pain, unspecified (principal); Z91.09 Other allergy status, other than to drugs and biological substances; Z99.2 Dependence on renal dialysis; I10 Essential (primary) hypertension; Z87.891 Personal history of nicotine dependence
CPT/HCPCS: 36415; 71045; 71260; 80053; 83735; 84484; 85025; 85379; 93005; 93010; 94640; 99285-25; J1170; J1200; J2405; J2930

== ENCOUNTER 2024-08-20 06:54 | Emergency (ER) | payer MEDICARE, OTHER ==
[~2024-08-20] VITALS: Ht 157.5 cm; Wt 92.7 kg
[~2024-08-20 06:54] MED LIST changes: +HYDROCODON-ACE1 EA10 PO; +MIDODRINE HCL10 MG PO; +PROMETHEGAN25 MG PR
[2024-08-20] MEDS ORDERED: PREDNISONE20 MG PO (07:07)
[2024-08-20] MEDS ORDERED: LISINOPRIL5 MG PO (07:08)
[2024-08-20] MEDS ORDERED: TRANEXAMIC ACID 1,000 MG/10 ML AMP ONE (07:09)
[2024-08-20] MEDS ORDERED: TRANEXAMIC ACID 2,000 MG in SODIUM CHLORIDE 0.9% 100 ML IV ONE (07:15)
[2024-08-20] MEDS ORDERED: DEXAMETHASONE SOD PHOS 10 MG/ML VIAL IV ONE (07:15)
[2024-08-20] MEDS ORDERED: FAMOTIDINE 20 MG/ 2 ML VIAL IV ONE (07:15)
[2024-08-20] MEDS ORDERED: ondansetron HCL 4 MG/2 ML VIAL ONE ×2 (07:18→08:06)
[2024-08-20] MEDS ORDERED: ondansetron HCL 4 MG/2 ML VIAL IV ONE ×2 (07:30→08:15)
[2024-08-20 07:46] LABS: BASOPHILS 0.2 % (0-2); EOSINOPHILS 3.4 % (0-6); HEMATOCRIT 29.7 % (35.0-50.0); HEMOGLOBIN 10.4 g/dL (12.0-18.0); LYMPHOCYTES 4.3 % (24-44); MCH 31.2 (27-36); MCV 89.2 fl (81-99); MONOCYTES 5.6 % (0-12); NEUTROPHILS 86.5 % (39-80); PLATELET COUNT 220 K/uL (140-440); RBC 3.33 M/ul (4.3-5.7)
[2024-08-20 07:55] LABS: ALBUMIN 2.7 g/dL (3.4-5.0); ALBUMIN/GLOBULIN RATIO 0.66 (1.1-2.4); BILIRUBIN, TOTAL 0.5 ng/dL (0.2-1.0); BUN/CREATININE RATIO 4.54 (6.0-28.6); CALCIUM 8.9 mg/dL (8.5-10.1); CREATININE, SERUM 9.02 mg/dL (0.55-1.02); PROTEIN, TOTAL 6.8 g/dL (6.4-8.2)
[2024-08-20] MEDS ORDERED: fentaNYL citrate 100 MCG/2 ML VIAL IV PRN (08:00)
[2024-08-20 08:24] VITALS: BP 181/86
== END 2024-08-20 08:24 | disposition short-term general hospital (02) ==
LOC: ED 06:54
PROVIDERS: Emergency Medicine
DX: R22.0 Localized swelling, mass and lump, head (principal); I13.11 Hypertensive heart and chronic kidney disease without heart failure, with stage 5 chronic kidney disease, or end stage renal disease; N18.6 End stage renal disease; Z99.2 Dependence on renal dialysis; Z87.891 Personal history of nicotine dependence; Z79.52 Long term (current) use of systemic steroids; Z79.899 Other long term (current) drug therapy; Z91.041 Radiographic dye allergy status; Z91.048 Other nonmedicinal substance allergy status
CPT/HCPCS: 36415; 71045; 80053; 85025; 96365; 96375; 96376; 99284-25; J1100; J2405; J3010

== ENCOUNTER 2025-04-04 22:31 | Emergency (ER) | payer MEDICARE, OTHER ==
[~2025-04-04] VITALS: Ht 157.5 cm; Wt 84.2 kg
[~2025-04-04 22:31] MED LIST changes: +ALPRAZOLAM0.5 MG PO; +FLUOXETINE HCL20 MG PO; +LISINOPRIL5 MG PO; +ONDANSETRON ODT4 MG PO; +PREDNISONE20 MG PO; +TRAZODONE HCL50 MG
[2025-04-04] MEDS ORDERED: PROCHLORPERAZINE EDISYLATE 10 MG/2 ML VIAL IV ONE (22:45)
[2025-04-04 22:47] LABS: BASOPHILS 0.5 % (0.1-1.2); EOSINOPHILS 0.8 % (0.7-5.8); HEMATOCRIT 41.8 % (34.1-44.9); HEMOGLOBIN 14.1 g/dL (11.2-15.7); LYMPHOCYTES 9.9 % (19.3-51.7); MCH 30.7 PG (25.6-32.2); MCHC 33.7 g/dL (32.2-35.5); MCV 90.9 fL (79.4-94.8); NEUTROPHILS 81.4 % (34.0-71.1); PLATELET COUNT 211 K/uL (182-369)
[2025-04-04 23:02] LABS: ALBUMIN 3.3 g/dL (3.4-5.0); ALBUMIN/GLOBULIN RATIO 0.79 (1.1-2.4); ANION GAP 12.9 (7-21); BILIRUBIN, TOTAL 0.8 mg/dL (0.2-1.0); BUN/CREATININE RATIO 1.36 (6.0-28.6); CREATININE, SERUM 5.85 mg/dL (0.55-1.02); MAGNESIUM 1.9 mg/dL (1.8-2.4); POTASSIUM 3.9 mmol/L (3.5-5.1); PROTEIN, TOTAL 7.5 g/dL (6.4-8.2)
[2025-04-04] MEDS ORDERED: LORazepam 2 MG/ML VIAL IV ONE (23:15)
[2025-04-04] MEDS ORDERED: ONDANSETRON ODT8 MG PO (23:45)
[2025-04-05 00:01] VITALS: BP 134/87
--- NOTE | 2025-04-05 16:10 | EKG ---
[facility] [address] [facility] [place] [address] Signed Sinus rhythm with fusion complexes Possible Right ventricular hypertrophy Nonspecific ST abnormality Abnormal ECG When compared with ECG of 03-APR-2025 13:20, fusion complexes are now present Nonspecific T wave abnormality now evident in Lateral leads Confirmed by Abdelrahman Moore MD () on 04/05/2025 4:09:55 PM Electronically Signed By: ABDELRAHMAN MOORE MD 04/05/25 1610 PATIENT NAME: JOHN REEVES Electrocardiogram DATE OF : 76 PHYSICIAN: ABDELRAHMAN MOORE MD REPORT #: [id number] REPORT IS CONFIDENTIAL AND NOT TO BE RELEASED WITHOUT AUTHORIZATION
== END 2025-04-05 00:02 | disposition home or self-care (01) ==
LOC: ED 22:31
PROVIDERS: Family Medicine
DX: R55 Syncope and collapse (principal); I10 Essential (primary) hypertension; Z79.899 Other long term (current) drug therapy; Z91.041 Radiographic dye allergy status; Z91.048 Other nonmedicinal substance allergy status; Z87.891 Personal history of nicotine dependence
CPT/HCPCS: 36415; 70450; 80053; 83735; 85025; 93005; 93010; 96374; 96375; 99285-25; J0780; J2060

== ENCOUNTER 2025-09-09 18:48 | Emergency (ER) | payer MEDICARE, OTHER ==
[~2025-09-09] VITALS: Ht 157.5 cm; Wt 85.0 kg
[2025-09-09] MEDS ORDERED: LACTATED RINGER'S 1,000 ML IV ONE (19:30)
[2025-09-09] MEDS ORDERED: IBLOOD GLUCOSE TEST STRIP 1 EA TEST VI ONE (19:30)
[2025-09-09] MEDS ORDERED: LORazepam 2 MG/ML VIAL IV ONE (19:30)
[2025-09-09 19:32] LABS: BASOPHILS 0.5 % (0.1-1.2); EOSINOPHILS 0 % (0.7-5.8); LYMPHOCYTES 5.7 % (19.3-51.7); MCH 29.6 PG (25.6-32.2); MCHC 33.3 g/dL (32.2-35.5); MCV 88.9 fL (79.4-94.8); MONOCYTES 4.7 % (4.7-12.5); NEUTROPHILS 88.3 % (34.0-71.1); RBC 5.23 M/uL (3.93-5.22)
[2025-09-09 19:45] LABS: PHOSPHORUS, INORGANIC 2.0 mg/dL (2.5-4.9)
[2025-09-09 19:48] LABS: ALCOHOL, MEDICAL <3 ng/dL (<3); ALT (SGPT) 11 U/L (14-59); AST (SGOT) 16 U/L (15-37); GLOMERULAR FILTRATION RATE,EST 11 mL/min (>60); PROTEIN, TOTAL 9.0 g/dL (6.4-8.2); UREA NITROGEN 7 mg/dL (7-18)
[2025-09-09 20:11] LABS: LACTIC ACID, BLOOD 6.0 mmol/L (0.4-2.0)
[2025-09-09] MEDS ORDERED: MORPHINE SULFATE 4 MG/ML VIAL IV ONE ×2 (20:15→22:30)
[2025-09-09 21:10] LABS: LACTIC ACID, BLOOD 3.3 mmol/L (0.4-2.0)
[2025-09-09] MEDS ORDERED: FAMOTIDINE 20 MG/ 2 ML VIAL IV ONE (23:45)
[2025-09-09] MEDS ORDERED: HYDROmorphone HCL 1 MG/ML SYR IV ONE (23:45)
[2025-09-09] MEDS ORDERED: LABETALOL HCL 20 MG/4 ML VIAL IV ONE (23:45)
[2025-09-10 02:07] VITALS: BP 106/65
--- NOTE | 2025-09-11 15:14 | EKG ---
[facility] [address] [facility] [place] [address] Signed Sinus tachycardia Right axis deviation Pulmonary disease pattern Nonspecific ST abnormality Abnormal ECG When compared with ECG of 04-APR-2025 23:05, fusion complexes are no longer present Confirmed by JOSE PETERSON MD ([id number]) on 09/11/2025 3:13:52 PM Electronically Signed By: JOSE PETERSON 09/11/25 1514 PATIENT NAME: JOHN REEVES Electrocardiogram DATE OF : 76 PHYSICIAN: JOSE PETERSON REPORT #: [id number] REPORT IS CONFIDENTIAL AND NOT TO BE RELEASED WITHOUT AUTHORIZATION
== END 2025-09-10 02:09 | disposition short-term general hospital (02) ==
LOC: ED 18:48
PROVIDERS: Internal Medicine
DX: A41.9 Sepsis, unspecified organism (principal); E87.20 Acidosis, unspecified; R10.9 Unspecified abdominal pain; I12.0 Hypertensive chronic kidney disease with stage 5 chronic kidney disease or end stage renal disease; N18.6 End stage renal disease; F41.0 Panic disorder [episodic paroxysmal anxiety]; Z99.2 Dependence on renal dialysis; Z87.891 Personal history of nicotine dependence; Z91.041 Radiographic dye allergy status; Z91.048 Other nonmedicinal substance allergy status; Z79.899 Other long term (current) drug therapy
CPT/HCPCS: 36415; 51798; 71045; 71250; 74176; 76705; 80053; 80307; 83605; 83690; 83735; 83880; 84100; 84484; 84703; 85025; 93005; 93010; 96374; 96375; 96376; 99285-25; G0480; J0696; J1171; J2060; J2270; J2405; J7121

== ENCOUNTER 2025-10-08 17:06 | Emergency (ER) | payer MEDICARE, OTHER ==
[~2025-10-08] VITALS: Ht 157.5 cm; Wt 76.0 kg
--- NOTE | ~2025-10-08 | EKG ---
[facility] [address] [facility] [place], [place] [address] Draft EKG completed, results pending confirmation PATIENT NAME: JOHN REEVES Electrocardiogram DATE OF : 76 PHYSICIAN: PRELIMINARY REPORT #: [id number] REPORT IS CONFIDENTIAL AND NOT TO BE RELEASED WITHOUT AUTHORIZATION
[2025-10-08] MEDS ORDERED: SODIUM CHLORIDE 0.9% 500 ML IV ONE (17:30)
[2025-10-08 17:35] LABS: BASOPHILS 0.6 % (0.1-1.2); EOSINOPHILS 0.2 % (0.7-5.8); LYMPHOCYTES 6.6 % (19.3-51.7); MCH 29.4 PG (25.6-32.2); MCHC 33.3 g/dL (32.2-35.5); MCV 88.3 fL (79.4-94.8); MONOCYTES 3.6 % (4.7-12.5); NEUTROPHILS 88.4 % (34.0-71.1); RBC 4.94 M/uL (3.93-5.22)
[2025-10-08 17:51] LABS: ALT (SGPT) 13.0 U/L (14-59); AST (SGOT) 13.0 U/L (15-37); GLOMERULAR FILTRATION RATE,EST 6.0 mL/min (>60); PROTEIN, TOTAL 8.5 g/dL (6.4-8.2); UREA NITROGEN 25.0 mg/dL (7-18)
[2025-10-08] MEDS ORDERED: PROCHLORPERAZINE EDISYLATE 10 MG/2 ML VIAL IV ONE (19:30)
[2025-10-08] MEDS ORDERED: METOCLOPRAMIDE HCL 10 MG/2 ML SDV IV ONE (20:30)
[2025-10-08] MEDS ORDERED: FAMOTIDINE 20 MG/ 2 ML VIAL IV ONE (20:30)
[2025-10-08] MEDS ORDERED: LORazepam 2 MG/ML VIAL IV ONE (23:45)
[2025-10-09 00:58] VITALS: BP 166/106
== END 2025-10-09 00:59 | disposition home or self-care (01) ==
LOC: ED 17:06
PROVIDERS: Emergency Medicine
DX: R11.15 Cyclical vomiting syndrome unrelated to migraine (principal); F41.9 Anxiety disorder, unspecified; I10 Essential (primary) hypertension; Z79.899 Other long term (current) drug therapy; Z91.041 Radiographic dye allergy status; Z91.048 Other nonmedicinal substance allergy status; Z87.891 Personal history of nicotine dependence
CPT/HCPCS: 36415; 80053; 83735; 84484; 85025; 93005; 93010; 96361; 96374; 96375; 99284-25; J0780; J1200; J1790; J2060; J2405; J2765; J7040

== ENCOUNTER 2025-11-01 19:31 | Emergency (ER) | payer MEDICARE, OTHER ==
[~2025-11-01] VITALS: Ht 157.5 cm; Wt 90.6 kg
--- OUTSIDE RECORDS SUMMARY | ~2025-11-01 | XMS | Continuity of Care Document ---
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 Functional Status No information. Immunizations No information. Medications + + + + | date | description | facility | + + + + | (no date) | LORAZEPAM | [facility] | | | | [facility] | + + + + | (no date) | ONDANSETRON | [facility] | | | | [facility] | + + + + | (no date) | ONDANSETRON HCL | [facility] | | | | [facility] | + + + + | (no date) | OXYCODONE | [facility] | | | HCL/ACETAMINOPHEN | [facility] | + + + + | (no date) | OXYCODONE HCL | [facility] | | | | [facility] | + + + + | (no date) | ALPRAZOLAM | [facility] | | | | [facility] | + + + + | (no date) | clonAZEpam | [facility] | | | | [facility] | + + + + | (no date) | OMEPRAZOLE | [facility] | | | | [facility] | + + + + | (no date) | TORSEMIDE | [facility] | | | | [facility] | + + + + | (no date) | CEFDINIR | [facility] | | | | [facility] | + + + + | (no date) | METRONIDAZOLE | [facility] | | | | [facility] | + + + + | (no date) | ALPRAZOLAM | [facility] | | | | [facility] | + + + + | (no date) | AMLODIPINE BESYLATE | [facility] | | | | [facility] | + + + + | (no date) | FLUOXETINE HCL | [facility] | | | | [facility] | + + + + | (no date) | LISINOPRIL | [facility] | | | | [facility] | + + + + | (no date) | ONDANSETRON HCL | [facility] | | | | [facility] | + + + + | (no date) | predniSONE | [facility] | | | | [facility] | + + + + | (no date) | RISPERIDONE | [facility] | | | | [facility] | + + + + | (no date) | CLONAZEPAM | [facility] | | | | [facility] | + + + + | (no date) | CALCIUM ACETATE | [facility] | | | | [facility] | + + + + | (no date) | ALPRAZOLAM | [facility] | | | | [facility] | + + + + | (no date) | SEVELAMER CARBONATE | [facility] | | | | [facility] | + + + + | (no date) | TRAZODONE HCL | [facility] | | | | [facility] | + + + + | (no date) | TRAZODONE HCL | [facility] | | | | [facility] | + + + + | (no date) | PROMETHAZINE HCL | [facility] | | | | [facility] | + + + + Problems + + + + | date | description | facility | + + + + | 2025-09-10 00:00 | Sepsis | [facility] | | | | [facility] | + + + + | 2025-09-10 00:00 | High anion gap metabolic | [facility] | | | acidosis | [facility] | + + + + | 2025-09-10 00:00 | End stage renal failure on | [facility] | | | dialysis | [facility] | + + + + | 2025-10-08 00:00 | Cyclic vomiting syndrome | [facility] | | | | [facility] | + + + + Procedures No information. Results/Labs +--------+--------+ +---------+--------+---------+ | test | date | facility | value | unit | notes | +--------+--------+ +---------+--------+---------+ + + | Result panel 1 | + + + + + +-------+---------+ + | Phosphate | 2025-09-09 | | 2.0 | mg/dL | (missing) | | [facility] | 19:21:08 | [facility] | | | | + + + +-------+---------+ + + + | Result panel 2 | + + + + + +------+ + + | Lipase | 2025-09-09 | | 31 | (missing) | (missing) | | SerPl-cCnc | 19:21:08 | [facility] | [facility] | | | | + + + +------+ + + + + | Result panel 3 | + + + + + +------+ + + | Ethanol | 2025-09-09 | | <3 | (missing) | (missing) | | [facility] | 19:21:08 | [facility] | | | | + + + +------+ + + + + | Result panel 4 | + + + + + +-------+ + + | Lactate | 2025-09-09 | | 2.1 | (missing) | (missing) | | SerPl-sCnc | 23:21:08 | [facility] | | | | + + + +-------+ + + + + | Result panel 5 | + + + + + +--------+ + + | MCH RBC Qn | 2025-10-08 | | 29.4 | (missing) | (missing) | | Auto | 17:30:08 | [facility] | | | | + + + +--------+ + + + + | Result panel 6 | + + + + + +--------+ + + | MCHC RBC | 2025-10-08 | | 33.3 | (missing) | (missing) | | Auto-EntMCnc | 17:30:08 | [facility] | | | | + + + +--------+ + + + + | Result panel 7 | + + + + + +-------+ + + | Platelet # | 2025-10-08 | | 321 | (missing) | (missing) | | Bld Auto | 17:30:08 | [facility] | | | | + + + +-------+ + + + + | Result panel 8 | + + + + + +--------+ + + | Neutrophils | 2025-10-08 | | 88.4 | (missing) | (missing) | | NFr Bld | 17:30:08 | [facility] | | | | | Auto | [facility] | | | | + + + +--------+ + + + + | Result panel 9 | + + + + + +-------+ + + | Lymphocytes | 2025-10-08 | | 6.6 | (missing) | (missing) | | NFr Bld | 17:30:08 | [facility] | | | | | Auto | [facility] | | | | + + + +-------+ + + + + | Result panel 10 | + + + + + +-------+ + + | Monocytes | 2025-10-08 | | 3.6 | (missing) | (missing) | | NFr Bld Auto | 17:30:08 | [facility] | | | | + + + +-------+ + + + + | Result panel 11 | + + + + + +-------+ + + | Eosinophil | 2025-10-08 | | 0.2 | (missing) | (missing) | | NFr Bld Auto | 17:30:08 | [facility] | | | | + + + +-------+ + + + + | Result panel 12 | + + + + + +-------+ + + | Basophils | 2025-10-08 | | 0.6 | (missing) | (missing) | | NFr Bld Auto | 17:30:08 | [facility] | | | | + + + +-------+ + + + + | Result panel 13 | + + + + + +-------+---------+ + | Glucose | 2025-10-08 | | 183 | mg/dL | (missing) | | SerPl-mCnc | 17:30:08 | [facility] | [facility] | | | | + + + +-------+---------+ + + + | Result panel 14 | + + + + + +------+---------+ + | BUN | 2025-10-08 | | 25 | mg/dL | (missing) | | [place]-mCnc | 17:30:08 | [facility] | | [facility] | | | | + + + +------+---------+ + + + | Result panel 15 | + + + + + +--------+---------+ + | Creat | 2025-10-08 | | 8.01 | mg/dL | (missing) | | SerPl-mCnc | 17:30:08 | [facility] | [facility] | | | | + + + +--------+---------+ + + + | Result panel 16 | + + + + + +-----+ + + | eGFRcr | 2025-10-08 | | 6 | (missing) | (missing) | | SerPlBld | 17:30:08 | [facility] | | | | | CKD-EPI 2020 | [facility] | | | | + + + +-----+ + + + + | Result panel 17 | + + + + + +--------+ + + | BUN/Creat | 2025-10-08 | | 3.12 | (missing) | (missing) | | SerPl | 17:30:08 | [facility] | | | [facility] | | | | + + + +--------+ + + + + | Result panel 18 | + + + + + +-------+ + + | Sodium | 2025-10-08 | | 138 | (missing) | (missing) | | SerPl-sCnc | 17:30:08 | [facility] | | | | [facility] | | | | + + + +-------+ + + + + | Result panel 19 | + + + + + +-------+ + + | Potassium | 2025-10-08 | | 4.0 | (missing) | (missing) | | SerPl-sCnc | 17:30:08 | [facility] | | | | + + + +-------+ + + + + | Result panel 20 | + + + + + +------+ + + | Chloride | 2025-10-08 | | 96 | (missing) | (missing) | | SerPl-sCnc | 17:30:08 | [facility] | | | [facility] | | | | + + + +------+ + + + + | Result panel 21 | + + + + + +------+ + + | CO2 | 2025-10-08 | | 26 | (missing) | (missing) | | [facility] | 17:30:08 | [facility] | [facility] | | | | + + + +------+ + + + + | Result panel 22 | + + + + + +--------+ + + | Anion Gap | 2025-10-08 | | 20.0 | (missing) | (missing) | | SerPl | 17:30:08 | [facility] | | | | | Calculated.4 | [facility] | | | | + + + +--------+ + + + + | Result panel 23 | + + + + + +--------+---------+ + | Calcium | 2025-10-08 | | 10.9 | mg/dL | (missing) | | SerPl-mCnc | 17:30:08 | [facility] | | | | [facility] | | | | + + + +--------+---------+ + + + | Result panel 24 | + + + + + +-------+---------+ + | Magnesium | 2025-10-08 | | 2.3 | mg/dL | (missing) | | [facility] | 17:30:08 | [facility] | | | | + + + +-------+---------+ + + + | Result panel 25 | + + + + + +-------+ + + | Prot | 2025-10-08 | | 8.5 | (missing) | (missing) | | [facility] | 17:30:08 | [facility] | [facility] | | | | + + + +-------+ + + + + | Result panel 26 | + + + + + +-------+ + + | Albumin | 2025-10-08 | | 3.5 | (missing) | (missing) | | SerPl-mCnc | 17:30:08 | [facility] | | | | + + + +-------+ + + + + | Result panel 27 | + + + + + +-------+ + + | Globulin | 2025-10-08 | | 5.0 | (missing) | (missing) | | Ser-mCnc | 17:30:08 | [facility] | | | | + + + +-------+ + + + + | Result panel 28 | + + + + + +--------+ + + | | 2025-10-08 | | 0.70 | (missing) | (missing) | | Albumin/Glob | 17:30:08 | [facility] | | | | | SerPl | [facility] | | | | + + + +--------+ + + + + | Result panel 29 | + + + + + +-------+---------+ + | Bilirub | 2025-10-08 | | 0.6 | mg/dL | (missing) | | SerPl-m[facility]nc | 17:30:08 | [facility] | | | | + + + +-------+---------+ + + + | Result panel 30 | + + + + + +------+ + + | AST | 2025-10-08 | | 13 | (missing) | (missing) | | [facility] | 17:30:08 | [facility] | [facility] | | | | + + + +------+ + + + + | Result panel 31 | + + + + + +------+ + + | ALT | 2025-10-08 | | 13 | (missing) | (missing) | | SerPl-cCnc | 17:30:08 | [facility] | | | | + + + +------+ + + + + | Result panel 32 | + + + + + +------+ + + | ALP | 2025-10-08 | | 98 | (missing) | (missing) | | SerPl-cCnc | 17:30:08 | [facility] | [facility] | | | | + + + +------+ + + + + | Result panel 33 | + + + + + +---------+ + + | WBC # Bld | 2025-10-08 | | 11.74 | (missing) | (missing) | | Auto | 17:30:08 | [facility] | | | | + + + +---------+ + + + + | Result panel 34 | + + + + + +--------+ + + | RBC # Bld | 2025-10-08 | | 4.94 | (missing) | (missing) | | Auto | 17:30:08 | [facility] | | | | + + + +--------+ + + + + | Result panel 35 | + + + + + +--------+ + + | Hgb | 2025-10-08 | | 14.5 | (missing) | (missing) | | Bld-mCnc | 17:30:08 | [facility] | | | | | | | - | | | | | | | [facility] | | | | + + + +--------+ + + + + | Result panel 36 | + + + + + +--------+ + + | Hct VFr.DF | 2025-10-08 | | 43.6 | (missing) | (missing) | | Bld Auto | 17:30:08 | [facility] | | | | + + + +--------+ + + + + | Result panel 37 | + + + + + +--------+ + + | RBC Auto | 2025-10-08 | | 88.3 | (missing) | (missing) | | | 17:30:08 | [facility] | | | | + + + +--------+ + + + + | Result panel 38 | + + + + + +--------+ + + | Troponin I | 2025-10-09 | | 22.6 | (missing) | (missing) | | SerPl | 00:03:08 | [facility] | | | | | HS-mCnc [facility] | [facility] | | | | + + + +--------+ + + Social History +--------+ + + | date | description | facility | +--------+ + + Vital Signs + + + +---------+ | date | measurement | value | units | + + + +---------+ | 2025-09-09 00:00 | BMI | 34.3 | kg/m2 | + + + +---------+ | 2025-09-09 00:00 | height_metric | 157.48 | cm | + + + +---------+ | 2025-09-09 00:00 | height_standard | 62 | in | + + + +---------+ | 2025-09-09 00:00 | weight_metric | 85 | kg | + + + +---------+ | 2025-09-09 00:00 | weight_standard | 187.393 | lb | + + + +---------+ | 2025-09-10 00:00 | BP_diastolic | 65 | mmHg | + + + +---------+ | 2025-09-10 00:00 | BP_systolic | 106 | mmHg | + + + +---------+ | 2025-09-10 00:00 | heart_rate | 88 | /min | + + + +---------+ | 2025-09-10 00:00 | o2_saturation | 92 | % | + + + +---------+ | 2025-09-10 00:00 | respiration_rate | 16 | /min | + + + +---------+ | 2025-09-10 00:00 | | 99 | F | | | temperature_standar | | | | | d | | | + + + +---------+ | 2025-10-08 00:00 | BMI | 30.6 | kg/m2 | + + + +---------+ | 2025-10-08 00:00 | height_metric | 157.48 | cm | + + + +---------+ | 2025-10-08 00:00 | height_standard | 62 | in | + + + +---------+ | 2025-10-08 00:00 | weight_metric | 75.999 | kg | + + + +---------+ | 2025-10-08 00:00 | weight_standard | 167.550 | lb | + + + +---------+ | 2025-10-09 00:00 | BP_diastolic | 106 | mmHg | + + + +---------+ | 2025-10-09 00:00 | BP_systolic | 166 | mmHg | + + + +---------+ | 2025-10-09 00:00 | heart_rate | 97 | /min | + + + +---------+ | 2025-10-09 00:00 | o2_saturation | 100 | % | + + + +---------+ | 2025-10-09 00:00 | respiration_rate | 16 | /min | + + + +---------+ | 2025-10-09 00:00 | | 98.4 | F | | | temperature_standar | | | | | d | | | + + + +---------+"
[2025-11-01] MEDS ORDERED: LORazepam 1 MG TAB PO ONE (21:00)
[2025-11-01] MEDS ORDERED: ONDANSETRON 4 MG TAB ODT SL ONE (21:15)
[2025-11-01 21:17] LABS: BASOPHILS 0.4 % (0.1-1.2); EOSINOPHILS 0.4 % (0.7-5.8); LYMPHOCYTES 7.0 % (19.3-51.7); MCH 29.3 PG (25.6-32.2); MCHC 33.1 g/dL (32.2-35.5); MCV 88.6 fL (79.4-94.8); MONOCYTES 5.8 % (4.7-12.5); NEUTROPHILS 86.0 % (34.0-71.1); RBC 5.18 M/uL (3.93-5.22)
[2025-11-01 21:38] LABS: ALT (SGPT) 10.0 U/L (14-59); AST (SGOT) 12.0 U/L (15-37); GLOMERULAR FILTRATION RATE,EST 12.0 mL/min (>60); PROTEIN, TOTAL 8.3 g/dL (6.4-8.2); UREA NITROGEN 7.0 mg/dL (7-18)
[2025-11-01] MEDS ORDERED: HYDROXYZINE PAM50 MG PO (22:49)
[2025-11-01] MEDS ORDERED: LORazepam 1 MG HOME.PACK PO ONE (23:00)
== END 2025-11-01 23:38 | disposition home or self-care (01) ==
LOC: ED 19:31
PROVIDERS: Family Medicine
DX: F41.9 Anxiety disorder, unspecified (principal); I10 Essential (primary) hypertension; Z79.899 Other long term (current) drug therapy; Z91.041 Radiographic dye allergy status; Z91.048 Other nonmedicinal substance allergy status; Z87.891 Personal history of nicotine dependence
CPT/HCPCS: 36415; 80053; 83735; 85025; 99283; A9270; A9270-GY